=== PATIENT | male | born 1950 | race Caucasian/White ===

== ENCOUNTER 2023-05-22 14:42 | Outpatient (OUT) | payer MEDICARE, OTHER, SELFPAY ==
--- NOTE | 2023-05-22 15:49 | PM.CN ---
Consult Note: HPI Data of Consult Patient: new to practice Consult date: 05/22/23 Requesting Physician: Miguelangel Mac MD Primary Care Provider: HAIDER HICKMAN Consult Narrative Reason for consult: Right foot pain Narrative: this is a pleasant 72-year-old gentleman who presents for evaluation. He notes a fifteen year history of right 3rd toe pain that is worsened with sitting. He has undergone various surgeries on his right foot, but these have not provided any lasting relief. Undergone multiple studies, including more MRIs, which show multilevel stenosis and facet arthropathy. His EMG is significant for polyneuropathy, likely secondary to diabetes. Various medications, including opioids, I have not helped this problem. He has had his 1st two toes indicated on his right foot, but his pain has worsened. He otherwise denies adverse medication side effects or loss of all or bladder control. cc:: CC: Miguelangel Mac MD Review of Systems ROS Status of ROS 10 or more systems reviewed and unremarkable except as noted in history and below Exam Constitutional Common normals: no apparent distress, oriented x3 and healthy appearing Respiratory Common normals: normal respiratory effort Effort & inspection: able to speak in complete sentences Extremity Common normals: normal to inspection Other: Tenderness to palpation in the right foot. Sensitivity to the right foot to palpation. Neuro Common normals: oriented x3, CN's II-XII intact bilaterally and no focal motor deficits Psych Common normals: mental status grossly normal and cooperative Assessment and Plan Assessment and Plan (1) Complex regional pain syndrome i of right lower limb: (2) Pain, foot, right, chronic: Plan this is a pleasant 72-year-old gentleman who presents for evaluation. He has failed physical and medical modalities, as listed above. He has had this ongoing right foot pain for many years, and I do wonder if he has developed some measure of complex regional pain syndrome, given the persistence of his pain and failure to find any etiology with various imaging and nerve conduction studies. Consequently, it would be prudent to attempt right lumbar sympathetic nerve blocks ?2 for diagnostic and potentially therapeutic purposes. He is in agreement with this plan. Medications were reviewed, and no changes were made at this time. He will follow-up after the procedure is completed.
== END 2023-05-22 14:43 | disposition home or self-care (01) ==
PROVIDERS: PCP Family Medicine; Visit Provider Anesthesiology
DX: G89.29 Other chronic pain (principal); G90.521 Complex regional pain syndrome I of right lower limb
CPT/HCPCS: G0463

== ENCOUNTER 2023-06-05 08:50 | Day surgery (SDC) | payer MEDICARE, OTHER, SELFPAY ==
[2023-06-05 09:13] VITALS: BP 145/77; PULSE 58; RESP 14; TEMP 36.8; O2SAT 97
[2023-06-05 09:14] LABS: Glucometer 111 mg/dL (74-106)
[2023-06-05 10:14] VITALS: RESP 20
[2023-06-05] MEDS: BUPIVACAINE HCL 0.25% PF 25 MG/10 ML VIAL 4 ML INJ (10:22)
[2023-06-05] MEDS: 0.9 % SODIUM CHLORIDE 10 ML 5 ML INJ (10:22)
[2023-06-05] MEDS: IOHEXOL 240 MG/ML - 10 ML VIAL INJ (10:23)
[2023-06-05] MEDS: LIDOCAINE HCL 2% PF 100 MG/5 ML VIAL INJ (10:23)
[2023-06-05] MEDS: TRIAMCINOLONE ACETONIDE 40 MG/ML VIAL INJ (10:23)
[2023-06-05 10:25] VITALS: BP 129/77; BP 143/74; PULSE 53; PULSE 54; O2SAT 97; O2SAT 98
--- NOTE | 2023-06-05 10:26 | W.PM.PROCNOT ---
Date of procedure: 06/05/23 Pre-op diagnosis: Complex regional pain syndrome, right lower extremity Post-op diagnosis: same as pre-op Procedure: Procedure: Right lumbar sympathetic nerve block Medications: Bupivacaine 0.25% 3cc, normal saline 0.9% 5cc, kenalog 80mg The patient was seen and examined in the preoperative holding area.? Informed consent was obtained and placed on the chart.? Patient was brought to the medical procedure unit and placed in the prone position where a timeout was completed verifying the correct patient, procedure site, position, and planned special equipment using sterile aseptic technique.? Under direct fluoroscopic visualization a 25-gauge Quincke tipped spinal needle was advanced to the right anterolateral aspect of the L3 vertebral body where Omnipaque dye was injected to show adequate spread.? There was no evidence of vascular or neurologic uptake.? The above-mentioned injectate was then placed in five 2 mL aliquots preceded by negative aspiration. The needle was removed and the surgery site was covered. The same procedure, with the same steps, was then completed on the opposite side. Patient was taken to the postprocedural recovery area and monitored for an appropriate length of time before found suitable for discharge in the accompaniment of a responsible adult. Anesthesia: Local Surgeon: Miguelangel Mac Pathology: none sent Condition: stable Disposition: no change
== END 2023-06-05 10:33 | disposition home or self-care (01) ==
PROVIDERS: PCP Family Medicine; Visit Provider Anesthesiology
DX: G90.521 Complex regional pain syndrome I of right lower limb (principal); E11.9 Type 2 diabetes mellitus without complications
CPT/HCPCS: 36415; 64520; 77002; 82948; Q9966

== ENCOUNTER 2023-06-19 07:10 | Day surgery (SDC) | payer MEDICARE, OTHER, SELFPAY ==
[2023-06-19 07:30] VITALS: BP 121/72; PULSE 59; RESP 16; TEMP 36.2; O2SAT 98
[2023-06-19 07:44] LABS: Glucometer 165 mg/dL (74-106)
[2023-06-19 08:09] VITALS: BP 133/68; PULSE 60; RESP 18; O2SAT 96
[2023-06-19] MEDS: BUPIVACAINE HCL 0.25% PF 25 MG/10 ML VIAL 5 ML INJ (08:13)
[2023-06-19] MEDS: IOHEXOL 240 MG/ML - 10 ML VIAL INJ (08:13)
[2023-06-19] MEDS: 0.9 % SODIUM CHLORIDE 10 ML 5 ML INJ (08:13)
[2023-06-19] MEDS: TRIAMCINOLONE ACETONIDE 40 MG/ML VIAL INJ (08:14)
[2023-06-19] MEDS: LIDOCAINE HCL 2% PF 100 MG/5 ML VIAL INJ (08:14)
[2023-06-19 08:16] VITALS: BP 127/69; PULSE 56; RESP 18; O2SAT 98
--- NOTE | 2023-06-19 08:18 | W.PM.PROCNOT ---
Date of procedure: 06/19/23 Pre-op diagnosis: CRPS right lower extremity Post-op diagnosis: same as pre-op Procedure: Procedure: Right lumbar sympathetic nerve block Medications: Bupivacaine 0.25% 4cc, normal saline 0.9% 4cc, kenalog 80mg Anesthesia: Local Surgeon: Miguelangel Mac Pathology: none sent Condition: stable Disposition: no change
== END 2023-06-19 08:23 | disposition home or self-care (01) ==
PROVIDERS: PCP Family Medicine; Visit Provider Anesthesiology
DX: G90.521 Complex regional pain syndrome I of right lower limb (principal); Z79.84 Long term (current) use of oral hypoglycemic drugs
CPT/HCPCS: 36415; 64520; 77002; 82948; Q9966

== ENCOUNTER 2023-07-05 10:58 | Outpatient (OUT) | payer MEDICARE, OTHER, SELFPAY ==
--- NOTE | 2023-07-05 11:30 | PM.CN ---
Consult Note: HPI Data of Consult Patient: known to practice within the last 3 years Requesting Physician: Anastasia Donato NP Primary Care Provider: HAIDER HICKMAN Consult Narrative Reason for consult: f/u Narrative: Dong Alcazar a pleasant 72 year old male presents for evaluation of chronic right 3rd toe pain rating 8-9/10 at todays visit. Patient had a right lumbar sympathetic nerve block with 0% pain relief or functional improvement. cc:: CC: Anastasia Donato NP Review of Systems ROS Status of ROS 10 or more systems reviewed and unremarkable except as noted in history and below Musculoskeletal Reports: joint pain (3rd toe) PFSH [facility] Medical History (Updated 07/05/23 @ 11:48 by Anastasia Donato NP) Surgical History Meds Home Medications and Allergies Home Medications Medication Instructions Recorded Confirmed Type acarbose 50 mg tablet 50 mg PO TID 05/24/23 06/19/23 History aspirin 81 mg tablet,delayed 81 mg PO DAILY 05/24/23 06/19/23 History release (Adult Aspirin Regimen) bupropion HCl 150 mg tablet,12 hr 150 mg PO DAILY 05/24/23 06/19/23 History sustained-release losartan 50 mg tablet 75 mg PO DAILY 05/24/23 06/19/23 History metoprolol tartrate 50 mg tablet 50 mg PO BID 05/24/23 06/19/23 History (Lopressor) multivitamin (Daily Multi-Vitamin 1 tab PO DAILY 05/24/23 06/19/23 History tablet) nitroglycerin 0.4 mg sublingual 0.4 mg sublingual Q5M 05/24/23 06/19/23 History tablet pioglitazone 30 mg tablet 60 mg PO DAILY 05/24/23 06/19/23 History simvastatin 40 mg tablet 40 mg PO DAILY 05/24/23 06/19/23 History sitagliptin phosphate 50 mg tablet 50 mg PO DAILY 05/24/23 06/19/23 History (Januvia) sodium bicarbonate 650 mg tablet 650 mg PO TID PRN stomach upset 05/24/23 06/19/23 History tizanidine 4 mg tablet 4 mg PO DAILY PRN muscle spasticity 05/24/23 06/19/23 History venlafaxine 37.5 mg 37.5 mg PO BID 05/24/23 06/19/23 History capsule,extended release 24 hr Allergies Allergy/AdvReac Type Severity Reaction Status Date / Time cefuroxime Allergy Verified 06/19/23 07:26 celecoxib [From Celebrex] Allergy Verified 06/19/23 07:26 diflunisal [From Dolobid] Allergy Verified 06/19/23 07:26 dulaglutide [From Trulicity] Allergy Verified 06/19/23 07:26 liraglutide [From Victoza] Allergy Verified 06/19/23 07:26 metformin Allergy Verified 06/19/23 07:26 naproxen [From Naprosyn] Allergy Verified 06/19/23 07:26 NSAIDS (Non-Steroidal Allergy Verified 06/19/23 07:26 Anti-Inflamma rofecoxib [From Vioxx] Allergy Verified 06/19/23 07:26 sulindac [From Clinoril] Allergy Verified 06/19/23 07:26 axetil Allergy Uncoded 06/19/23 07:26 Exam Constitutional Documenting provider has reviewed patient's vital signs: yes Common normals: no apparent distress, oriented x3, healthy appearing, alert and well nourished General appearance: cooperative HENVA Common normals: normocephalic, hearing grossly normal bilaterally and moist oral mucous membranes Head and scalp: normocephalic Eye Common normals: PERRL Pupil: PERRL Neck & C-Spine Common normals: full ROM General: normal visual inspection Chest Common normals: inspection of chest normal Respiratory Common normals: normal respiratory effort, no retractions and no use of accessory muscles Extremity Other: 3rd toe sharp pain limited ROM Neuro Common normals: oriented x3, CN's II-XII intact bilaterally, moves all extremities, no focal motor deficits, no sensory deficits noted and deep tendon reflexes 2+ bilaterally Sensorium/orientation: alert Motor exam: strength 5/5 throughout and no movement abnormalities noted Psych Common normals: mental status grossly normal, thought process normal, cooperative, affect normal, speech normal and activity/motor behavior normal Speech: normal speech Thought process: normal thought process Results Additional Findings Additional findings: I have checked an [place] report on this patient today and there are no aberrancies noted in the prescribing history.?? A drug screen was completed and reviewed within the last year, and if there has not been a drug screen completed we ordered one today to monitor higher risk, state monitored pain medication use. As part of providing excellent, safe, comprehensive care, the following was completed at our patient's visit: 1. A medication reconciliation and review to ensure accurate knowledge of current/active medications, including asking our patients to inform us about any [id number] medications or herbal remedies/nutritional supplements/alternative remedies. 2. A review to specifically ensure our patients have had annual screening for: elevated body mass index (BMI), tobacco use, screening for depression, and screening for unhealthy alcohol use. When screening is concerning, patients are provided with education and the specific recommendation to discuss the concerning health issue and treatment options with their primary care provider. Assessment and Plan Assessment and Plan (1) Toe pain: (2) Complex regional pain syndrome i of right lower limb: Plan start gabapentin 100mg daily HS for one week, 200mg HS second week, 300mg HS third week. Start gabapentin 300mg capsules BID after that start mobic 7.5mg BID f/u 1 month to discuss titration and further increase if needed
== END 2023-07-05 10:59 | disposition home or self-care (01) ==
LOC: PM 10:58
PROVIDERS: PCP Family Medicine; Visit Provider Nurse Practitioner
DX: M79.674 Pain in right toe(s) (principal); G90.521 Complex regional pain syndrome I of right lower limb
CPT/HCPCS: G0463

== ENCOUNTER 2023-07-11 08:55 | Outpatient (OUT) | payer MEDICARE, OTHER, SELFPAY ==
--- NOTE | 2023-07-11 08:57 | VEIN_ITS ---
Patient: LUISITO WHITMORE Exam Date: 07/11/2023 : 1950 Gender:M Ordering : DR KYLER ROJO M.D. Admission #: [id number] Family : Order #: [id number] CLICK HERE TO VIEW EXAM RADIOLOGY REPORT PROCEDURE: VC EXT VENOUS REFLUX CHRISTINE LMTD COMPARISON: None. INDICATIONS: I83.813 Painful varicose veins of bilat lower extremities TECHNIQUE: Duplex imaging of the lower extremity to assess the deep and superficial venous system for the presence of deep or superficial venous incompetence and to document the location and severity of disease. The study includes evaluation of the great saphenous vein (GSV), anterior accessory saphenous vein (AASV) and small saphenous vein (SSV). Patient scanned in reverse Trendelenburg and standing. FINDINGS: RIGHT LOWER EXTREMITY: Saphenofemoral Junction Reflux: Yes 6.5mm 1.4 sec GSV: Diam (mm) Reflux/ Time (sec) Proximal Thigh 4.3 Yes 0.6 Mid Thigh 3.9 No Distal Thigh 2.4 No Prox Calf 2.1 No Mid Calf 1.7 No Saphenopopliteal Junction Reflux: 3.3mm No SSV: Proximal Calf 1.7 No Mid Calf 1.4 Yes 1.1 AASV: Proximal Thigh 2.1 No Thrombi: No acute or chronic thrombus visualized Compressibility: Normal Flow: Normal Preforator: Dist/med calf 2.6mm with 0s reflux. Mid/med calf 3.4mm with 0s reflux. Tech Note: Incompetent SFJ. Patent varicose vein mid/med calf 3.0mm with 0.7s reflux. Patent varicose vein medial knee 2.5mm with 0s reflux. Patent varicose vein mid/med thigh 1.5mm with 0s reflux. LEFT LOWER EXTREMITY: Saphenofemoral Junction Reflux: Yes 8.3 mm 1.3 sec GSV: Diam (mm) Reflux/Time (sec) Proximal Thigh 6.7 Yes 1.0 Mid Thigh 3.2 No Distal Thigh 3.0 No Prox Calf 2.7 No Mid Calf 1.2 No Saphenopopliteal Junction Relux: 3.9 mm No SSV: Proximal Calf 1.7 No Mid Calf 1.8 No AASV: Not present Thrombi: No acute or chronic thrombus visualized Compressibility: Normal Flow: Normal Ultrasonic Cleaner: Dist/med calf 2.2mm with 0s reflux. Tech Note: Incompetent SFJ. Patent varicose vein 1.9mm with 0s reflux. CONCLUSION: 1. Mild venous insufficiency proximal right great saphenous vein, mid right small saphenous vein and proximal left small saphenous vein 2. Borderline single varicose vein in the right leg. Dictated by: Kyler Rojo MD on 07/11/2023 at 10:12 Approved by: Kyler Rojo MD on 07/11/2023 at 10:20
--- NOTE | 2023-07-11 08:57 | VEIN_ITS ---
Patient: LUISITO WHITMORE Exam Date: 07/11/2023 : 1950 Gender:M Ordering : DR KYLER ROJO M.D. Admission #: [id number] Family : Order #: [id number] CLICK HERE TO VIEW EXAM RADIOLOGY REPORT PROCEDURE: [facility] - OFFICE VISIT INITIAL COMPARISON: None. PROGRESS NOTES: 72-year-old male who presents with a 1 year history of lower extremity pain and swelling with multiple episodes of cellulitis requiring antibiotics. The patient's symptoms are asymmetric located only on the right. The patient rates the pain as a 6 on a scale of 1-10. The patient describes scaly peeling skin, skin weeping and multiple ulcerations over the course of the year. The patient is not currently on antibiotics. The patient was referred by his primary care physician. The patient also complains of right foot pain with Charcot joint causing him to be relatively immobile in unable to walk. The patient's pain is significantly increased while sitting or standing and is relieved by walking. The patient denies any signs and symptoms to suggest arterial ischemia. The patient has does not drink alcohol and has never smoked. No illicit drug or prescription miss use. Patient has a past medical history significant for diabetes, arthritis, heart disease, vascular disease, Charcot of the right foot with chronic toe pain and toe amputation. Peripheral neuropathy. BPH. Kidney disease, hiatal hernia, kidney stones, psoriasis. No history of deep venous thrombus or pulmonary embolus. See separate history and physical for medication list. No prior treatment for varicose or spider veins. The patient has worn compression stockings for approximately 6 months. Nursing notes were reviewed. After history and physical exam I discussed at length the pathophysiology of his asymmetric right lower extremity pain swelling, cellulitis, active ulcerations and foot pain. There is no observed venous insufficiency etiology for his symptoms which are likely multifactorial and related to fluid overload from heart disease and hypertension and or combination with lymphatic system dysfunction. No venous treatments were recommended at this time. Ultrasound venous reflux study performed day was discussed at length with the patient. The report demonstrates minimal bilateral proximal great saphenous vein venous insufficiency. Minimal right small saphenous vein venous insufficiency. I discussed with the patient that he likely had mild cellulitis and I recommended antibiotics which I did prescribed. I also was concerned about a central venous obstruction resulting in asymmetric right leg swelling. PHYSICAL EXAM: The right leg demonstrates moderate asymmetric soft tissue swelling primarily below the knee. Extensive moderate erythema and warmth of the lower leg extending from just below the knee to the level of the ankle. Multiple subcentimeter eschars are identified primarily along the anterior and lateral mid to lower right lower leg. The left leg demonstrates minimal scattered reticular and spider veins. No active ulceration. No subcutaneous edema. Both thighs, legs and feet were symmetrically warm to the touch. Good posterior tibial and dorsalis pedis pulses were present bilaterally. VEIN/VC Facility EST Comprehensive IMPRESSION: 1. Minimal bilateral great and right small saphenous vein venous insufficiency 2. No significant lower extremity varicose veins 3. Moderate asymmetric right lower extremity subcutaneous edema with ulcerations, consider lymphadema 4. No definite flow significant arterial disease 5. CEAP: C0, En, An, Pn PLAN: 1. CT exam of the abdomen and pelvis with IV and oral contrast to evaluate for central venous obstruction 2. Keflex 500 milligram b.i.d. For 14 days 3. Long-term use of bilateral knee or thigh-high 30-40 mm compression stockings 4. Elevated legs and increased physical activity for symptomatic relief Nurse notes, history and physical were reviewed and confirmed, see attached forms. The nurse was present throughout the physical exam and consultation Dictated by: Kyler Rojo MD on 07/11/2023 at 13:42 Approved by: Kyler Rojo MD on 07/11/2023 at 13:51
== END 2023-07-11 08:56 | disposition home or self-care (01) ==
LOC: VC 08:56
PROVIDERS: PCP Family Medicine; Visit Provider Radiology Diagnostic Radiology
DX: I89.0 Lymphedema, not elsewhere classified (principal); Z87.2 Personal history of diseases of the skin and subcutaneous tissue; I83.813 Varicose veins of bilateral lower extremities with pain
CPT/HCPCS: 93970; G0463

== ENCOUNTER 2023-08-03 10:42 | Outpatient (OUT) | payer MEDICARE, OTHER, SELFPAY ==
--- NOTE | 2023-08-03 10:52 | PM.CN ---
Consult Note: HPI Data of Consult Patient: known to practice within the last 3 years Requesting Physician: Anastasia Donato NP Primary Care Provider: HAIDER HICKMAN Consult Narrative Reason for consult: f/u Narrative: Dong Alcazar a pleasant 72 year old male presents for evaluation of chronic right 3rd toe pain rating 1-2/10 at todays visit. Patient has restarted gabapentin and is taking 600mg daily without benefit, no side effects. Patient has a complex history of uncontrolled diabetes and has had this pain for 15+ years that is unresponsive to medication management and injection therapy. cc:: CC: Anastasia Donato NP Review of Systems ROS Status of ROS 10 or more systems reviewed and unremarkable except as noted in history and below Musculoskeletal Reports: joint pain (3rd toe) PFSH PFSH Medical History Amputation of toe ?S98.139A - Complete traumatic amputation of one unspecified lesser toe, initial encounter (ICD-10) Diabetes ?E11.9 - Type 2 diabetes mellitus without complications (ICD-10) Enlarged prostate ?N40.0 - Benign prostatic hyperplasia without lower urinary tract symptoms (ICD-10) H/O nephrolithotomy with removal of calculi ?Z98.890 - Other specified postprocedural states (ICD-10) ?Z87.442 - Personal history of urinary calculi (ICD-10) H/O renal calculi ?Z87.442 - Personal history of urinary calculi (ICD-10) Hypertension ?I10 - Essential (primary) hypertension (ICD-10) Low back pain ?M54.50 - Low back pain, unspecified (ICD-10) Neck pain ?M54.2 - Cervicalgia (ICD-10) Obesity ?E66.9 - Obesity, unspecified (ICD-10) Obstructive sleep apnea on CPAP ?G47.33 - Obstructive sleep apnea (adult) (pediatric) (ICD-10) Osteoarthritis ?M19.90 - Unspecified osteoarthritis, unspecified site (ICD-10) Surgical History H/O heart artery stent ?Z95.5 - Presence of coronary angioplasty implant and graft (ICD-10) Meds Home Medications and Allergies Home Medications Medication Instructions Recorded Confirmed Type acarbose 50 mg tablet 50 mg PO TID 05/24/23 06/19/23 History aspirin 81 mg tablet,delayed 81 mg PO DAILY 05/24/23 06/19/23 History release (Adult Aspirin Regimen) bupropion HCl 150 mg tablet,12 hr 150 mg PO DAILY 05/24/23 06/19/23 History sustained-release losartan 50 mg tablet 75 mg PO DAILY 05/24/23 06/19/23 History metoprolol tartrate 50 mg tablet 50 mg PO BID 05/24/23 06/19/23 History (Lopressor) multivitamin (Daily Multi-Vitamin 1 tab PO DAILY 05/24/23 06/19/23 History tablet) nitroglycerin 0.4 mg sublingual 0.4 mg sublingual Q5M 05/24/23 06/19/23 History tablet pioglitazone 30 mg tablet 60 mg PO DAILY 05/24/23 06/19/23 History simvastatin 40 mg tablet 40 mg PO DAILY 05/24/23 06/19/23 History sitagliptin phosphate 50 mg tablet 50 mg PO DAILY 05/24/23 06/19/23 History (Januvia) sodium bicarbonate 650 mg tablet 650 mg PO TID PRN stomach upset 05/24/23 06/19/23 History tizanidine 4 mg tablet 4 mg PO DAILY PRN muscle spasticity 05/24/23 06/19/23 History venlafaxine 37.5 mg 37.5 mg PO BID 05/24/23 06/19/23 History capsule,extended release 24 hr Allergies Allergy/AdvReac Type Severity Reaction Status Date / Time cefuroxime Allergy Verified 06/19/23 07:26 celecoxib [From Celebrex] Allergy Verified 06/19/23 07:26 diflunisal [From Dolobid] Allergy Verified 06/19/23 07:26 dulaglutide [From Trulicity] Allergy Verified 06/19/23 07:26 liraglutide [From Victoza] Allergy Verified 06/19/23 07:26 metformin Allergy Verified 06/19/23 07:26 naproxen [From Naprosyn] Allergy Verified 06/19/23 07:26 NSAIDS (Non-Steroidal Allergy Verified 06/19/23 07:26 Anti-Inflamma rofecoxib [From Vioxx] Allergy Verified 06/19/23 07:26 sulindac [From Clinoril] Allergy Verified 06/19/23 07:26 axetil Allergy Uncoded 06/19/23 07:26 Exam Constitutional Documenting provider has reviewed patient's vital signs: yes Common normals: no apparent distress, oriented x3, healthy appearing, alert and well nourished General appearance: cooperative HENMT Common normals: normocephalic, hearing grossly normal bilaterally and moist oral mucous membranes Head and scalp: normocephalic Eye Common normals: PERRL Pupil: PERRL Neck & C-Spine Common normals: full ROM General: normal visual inspection Chest Common normals: inspection of chest normal Respiratory Common normals: normal respiratory effort, no retractions and no use of accessory muscles Extremity Other: 3rd toe sharp pain limited ROM Neuro Common normals: oriented x3, CN's II-XII intact bilaterally, moves all extremities, no focal motor deficits, no sensory deficits noted and deep tendon reflexes 2+ bilaterally Sensorium/orientation: alert Motor exam: strength 5/5 throughout and no movement abnormalities noted Psych Common normals: mental status grossly normal, thought process normal, cooperative, affect normal, speech normal and activity/motor behavior normal Speech: normal speech Thought process: normal thought process Assessment and Plan Assessment and Plan (1) Toe pain: (2) Pain, foot, right, chronic: (3) Complex regional pain syndrome i of right lower limb: Plan tolerating gabapentin well without side effects but not seeing a benefit at current 600mg daily dose increase to 900mg daily for two weeks then 1200mg daily f/u 1 month, consider switching to zonegran
== END 2023-08-03 10:43 | disposition home or self-care (01) ==
LOC: PM 10:43
PROVIDERS: PCP Family Medicine; Visit Provider Nurse Practitioner
DX: M79.671 Pain in right foot (principal); G89.29 Other chronic pain; G90.521 Complex regional pain syndrome I of right lower limb; M79.676 Pain in unspecified toe(s)
CPT/HCPCS: G0463

== ENCOUNTER 2023-08-30 10:11 | Outpatient (OUT) | payer MEDICARE, OTHER, SELFPAY ==
--- NOTE | 2023-08-30 10:37 | PM.CN ---
Consult Note: HPI Data of Consult Patient: known to practice within the last 3 years Requesting Physician: Anastasia Donato NP Primary Care Provider: HAIDER HICKMAN Consult Narrative Reason for consult: f/u Narrative: Dong Alcazar a pleasant 72 year old male presents for evaluation of chronic right 3rd toe pain rating 4/10 at todays visit. Patient has not found benefit to gabapentin 1200mg daily. Patient has a complex history of uncontrolled diabetes and has had this pain for 15+ years that is unresponsive to medication management and injection therapy. . cc:: CC: Anastasia Donato NP Review of Systems ROS Status of ROS 10 or more systems reviewed and unremarkable except as noted in history and below [facility] Medical History Amputation of toe ?S98.139A - Complete traumatic amputation of one unspecified lesser toe, initial encounter (ICD-10) Diabetes ?E11.9 - Type 2 diabetes mellitus without complications (ICD-10) Enlarged prostate ?N40.0 - Benign prostatic hyperplasia without lower urinary tract symptoms (ICD-10) H/O nephrolithotomy with removal of calculi ?Z98.890 - Other specified postprocedural states (ICD-10) ?Z87.442 - Personal history of urinary calculi (ICD-10) H/O renal calculi ?Z87.442 - Personal history of urinary calculi (ICD-10) Hypertension ?I10 - Essential (primary) hypertension (ICD-10) Low back pain ?M54.50 - Low back pain, unspecified (ICD-10) Neck pain ?M54.2 - Cervicalgia (ICD-10) Obesity ?E66.9 - Obesity, unspecified (ICD-10) Obstructive sleep apnea on CPAP ?G47.33 - Obstructive sleep apnea (adult) (pediatric) (ICD-10) Osteoarthritis ?M19.90 - Unspecified osteoarthritis, unspecified site (ICD-10) Surgical History H/O heart artery stent ?Z95.5 - Presence of coronary angioplasty implant and graft (ICD-10) Meds Home Medications and Allergies Home Medications Medication Instructions Recorded Confirmed Type acarbose 50 mg tablet 50 mg PO TID 05/24/23 06/19/23 History aspirin 81 mg tablet,delayed 81 mg PO DAILY 05/24/23 06/19/23 History release (Adult Aspirin Regimen) bupropion HCl 150 mg tablet,12 hr 150 mg PO DAILY 05/24/23 06/19/23 History sustained-release losartan 50 mg tablet 75 mg PO DAILY 05/24/23 06/19/23 History metoprolol tartrate 50 mg tablet 50 mg PO BID 05/24/23 06/19/23 History (Lopressor) multivitamin (Daily Multi-Vitamin 1 tab PO DAILY 05/24/23 06/19/23 History tablet) nitroglycerin 0.4 mg sublingual 0.4 mg sublingual Q5M 05/24/23 06/19/23 History tablet pioglitazone 30 mg tablet 60 mg PO DAILY 05/24/23 06/19/23 History simvastatin 40 mg tablet 40 mg PO DAILY 05/24/23 06/19/23 History sitagliptin phosphate 50 mg tablet 50 mg PO DAILY 05/24/23 06/19/23 History (Januvia) sodium bicarbonate 650 mg tablet 650 mg PO TID PRN stomach upset 05/24/23 06/19/23 History tizanidine 4 mg tablet 4 mg PO DAILY PRN muscle spasticity 05/24/23 06/19/23 History venlafaxine 37.5 mg 37.5 mg PO BID 05/24/23 06/19/23 History capsule,extended release 24 hr gabapentin 600 mg tablet 1,200 mg PO DAILY #60 tabs 08/17/23 Rx Allergies Allergy/AdvReac Type Severity Reaction Status Date / Time cefuroxime Allergy Verified 06/19/23 07:26 celecoxib [From Celebrex] Allergy Verified 06/19/23 07:26 diflunisal [From Dolobid] Allergy Verified 06/19/23 07:26 dulaglutide [From Trulicity] Allergy Verified 06/19/23 07:26 liraglutide [From Victoza] Allergy Verified 06/19/23 07:26 metformin Allergy Verified 06/19/23 07:26 naproxen [From Naprosyn] Allergy Verified 06/19/23 07:26 NSAIDS (Non-Steroidal Allergy Verified 06/19/23 07:26 Anti-Inflamma rofecoxib [From Vioxx] Allergy Verified 06/19/23 07:26 sulindac [From Clinoril] Allergy Verified 06/19/23 07:26 axetil Allergy Uncoded 06/19/23 07:26 Exam Constitutional Documenting provider has reviewed patient's vital signs: yes Common normals: no apparent distress, oriented x3, healthy appearing, alert and well nourished General appearance: cooperative HENAL Common normals: normocephalic, hearing grossly normal bilaterally and moist oral mucous membranes Head and scalp: normocephalic Eye Common normals: PERRL Pupil: PERRL Neck & C-Spine Common normals: full ROM General: normal visual inspection Chest Common normals: inspection of chest normal Respiratory Common normals: normal respiratory effort, no retractions and no use of accessory muscles Extremity Other: 3rd toe sharp pain limited ROM Neuro Common normals: oriented x3, CN's II-XII intact bilaterally, moves all extremities, no focal motor deficits, no sensory deficits noted and deep tendon reflexes 2+ bilaterally Sensorium/orientation: alert Motor exam: strength 5/5 throughout and no movement abnormalities noted Psych Common normals: mental status grossly normal, thought process normal, cooperative, affect normal, speech normal and activity/motor behavior normal Speech: normal speech Thought process: normal thought process Assessment and Plan Assessment and Plan (1) Complex regional pain syndrome i of right lower limb: (2) Pain, foot, right, chronic: (3) Toe pain: Plan right sciatic nerve block continue current medications f/u with Dr Mac
== END 2023-08-30 10:12 | disposition home or self-care (01) ==
LOC: PM 10:12
PROVIDERS: PCP Family Medicine; Visit Provider Nurse Practitioner
DX: G90.521 Complex regional pain syndrome I of right lower limb (principal); M79.671 Pain in right foot; M79.674 Pain in right toe(s)
CPT/HCPCS: G0463

== ENCOUNTER 2023-09-25 08:52 | Day surgery (SDC) | payer MEDICARE, OTHER, SELFPAY ==
[2023-09-25 09:23] VITALS: BP 164/80; PULSE 59; RESP 14; TEMP 36.3; O2SAT 98
[2023-09-25 09:30] LABS: Glucometer 131 mg/dL (74-106)
[2023-09-25 10:02] VITALS: BP 147/79; PULSE 60; RESP 18; O2SAT 98
[2023-09-25 10:07] VITALS: BP 154/85; PULSE 57; RESP 18; O2SAT 98
--- NOTE | 2023-09-25 10:08 | W.PM.PROCNOT ---
Date of procedure: 09/25/23 Pre-op diagnosis: Sciatica, complex regional pain syndrome type 1, right lower extremity Post-op diagnosis: same as pre-op Procedure: Procedure: Right distal sciatic nerve block under ultrasound guidance Medications: Bupivacaine 0.25% 2cc, lidocaine 2% 1cc, kenalog 80mg After informed consent was obtained and placed on the chart, the patient was brought to the medical procedures unit and placed in the prone position.? A timeout was completed verifying correct patient, procedure, site, positioning, and planned special equipment.? The area overlying the popliteal fossa was prepped and draped using aseptic technique. Ultrasound guidance was used to find the distal sciatic nerve, just before it branches into the tibial and common peroneal nerves. A 22-gauge, 4-inch Stimuplex needle with active tip was advanced through a skin wheal raised with 2% lidocaine in the area overlying the site of insertion. The needle was advanced until it abutted the right sciatic nerve. A test injection was given with 1cc of the above solution, which showed appropriate spread around the sciatic nerve. ? The above-mentioned injectate was placed in three 1 mL aliquots preceded by negative aspiration without sequelae.? The needle was removed.? The needle insertion site was covered.? The patient was taken to the postprocedural recovery area and monitored for the appropriate length of time, and when the patient was found suitable for discharge in the accompaniment of a responsible adult. Anesthesia: Local Surgeon: Miguelangel Mac Pathology: none sent Condition: stable Disposition: no change
[2023-09-25] MEDS: 0.9 % SODIUM CHLORIDE 10 ML SYRINGE - SALINE FLUSH 2 ML INJ (10:10)
[2023-09-25] MEDS: BUPIVACAINE HCL 0.25% PF 25 MG/10 ML VIAL 2 ML INJ (10:11)
[2023-09-25] MEDS: LIDOCAINE HCL 2% PF 100 MG/5 ML VIAL INJ (10:11)
[2023-09-25] MEDS: TRIAMCINOLONE ACETONIDE 40 MG/ML VIAL INJ (10:11)
== END 2023-09-25 10:15 | disposition home or self-care (01) ==
PROVIDERS: PCP Family Medicine; Visit Provider Anesthesiology
DX: M54.30 Sciatica, unspecified side (principal); G90.521 Complex regional pain syndrome I of right lower limb; Z79.84 Long term (current) use of oral hypoglycemic drugs
CPT/HCPCS: 36415; 64445; 76942; 77002; 82948

== ENCOUNTER 2023-10-16 14:10 | Outpatient (OUT) | payer MEDICARE, OTHER, SELFPAY ==
--- NOTE | 2023-10-16 15:34 | P.CN_ITS ---
Consult Note: HPI Data of Consult Patient: known to practice within the last 3 years Consult date: 10/16/23 Requesting Physician: Miguelangel Mac MD Primary Care Provider: HAIDER HICKMAN Consult Narrative Reason for consult: Right foot pain Narrative: 73yom who presents for assessment. COntinues to have significant pain into right foot. EMG shows severe axonal loss, polyneuropathy. Has not had relief with gabapentin or various injections and blocks. States that his pain is making him more and more despondent. Denies adverse medication side effects. cc:: CC: Miguelangel Mac MD Review of Systems ROS Status of ROS 10 or more systems reviewed and unremark able except as noted in history and below [facility] Medical History H/O nephrolithotomy with removal of calculi ?Z98.890 - Other specified postprocedural states (ICD-10) ?Z87.442 - Personal history of urinary calculi (ICD-10) Osteoarthritis ?M19.90 - Unspecified osteoarthritis, unspecified site (ICD-10) Amputation of toe ?S98.139A - Complete traumatic amputation of one unspecified lesser toe, initial encounter (ICD-10) H/O renal calculi ?Z87.442 - Personal history of urinary calculi (ICD-10) Obstructive sleep apnea on CPAP ?G47.33 - Obstructive sleep apnea (adult) (pediatric) (ICD-10) Neck pain ?M54.2 - Cervicalgia (ICD-10) Low back pain ?M54.50 - Low back pain, unspecified (ICD-10) Obesity ?E66.9 - Obesity, unspecified (ICD-10) Diabetes ?E11.9 - Type 2 diabetes mellitus without complications (ICD-10) Enlarged prostate ?N40.0 - Benign prostatic hyperplasia without lower urinary tract symptoms (ICD-10) Hypertension ?I10 - Essential (primary) hypertension (ICD-10) Surgical History H/O heart artery stent ?Z95.5 - Presence of coronary angioplasty implant and graft (ICD-10) Meds Home Medications and Allergies Home Medications Medication Instructions Recorded Confirmed Type acarbose 50 mg tablet 50 mg PO TID 05/24/23 09/25/23 History aspirin 81 mg tablet,delayed 81 mg PO DAILY 05/24/23 09/25/23 History release (Adult Aspirin Regimen) bupropion HCl 150 mg tablet,12 hr 150 mg PO DAILY 05/24/23 09/25/23 History sustained-release losartan 50 mg tablet 75 mg PO DAILY 05/24/23 09/25/23 History metoprolol tartrate 50 mg tablet 50 mg PO BID 05/24/23 09/25/23 History (Lopressor) nitroglycerin 0.4 mg sublingual 0.4 mg sublingual Q5M 05/24/23 09/25/23 History tablet pioglitazone 30 mg tablet 60 mg PO DAILY 05/24/23 09/25/23 History simvastatin 40 mg tablet 40 mg PO DAILY 05/24/23 09/25/23 History sitagliptin phosphate 50 mg tablet 50 mg PO DAILY 05/24/23 09/25/23 History (Januvia) sodium bicarbonate 650 mg tablet 650 mg PO TID PRN stomach upset 05/24/23 09/25/23 History tizanidine 4 mg tablet 4 mg PO DAILY PRN muscle spasticity 05/24/23 09/25/23 History venlafaxine 37.5 mg 37.5 mg PO BID 05/24/23 09/25/23 History capsule,extended release 24 hr Allergies Allergy/AdvReac Type Severity Reaction Status Date / Time cefuroxime Allergy Verified 06/19/23 07:26 celecoxib [From Celebrex] Allergy Verified 06/19/23 07:26 diflunisal [From Dolobid] Allergy Verified 06/19/23 07:26 dulaglutide [From Trulicity] Allergy Verified 06/19/23 07:26 liraglutide [From Victoza] Allergy Verified 06/19/23 07:26 metformin Allergy Verified 06/19/23 07:26 naproxen [From Naprosyn] Allergy Verified 06/19/23 07:26 NSAIDS (Non-Steroidal Allergy Verified 06/19/23 07:26 Anti-Inflamma rofecoxib [From Vioxx] Allergy Verified 06/19/23 07:26 sulindac [From Clinoril] Allergy Verified 06/19/23 07:26 axetil Allergy Uncoded 06/19/23 07:26 Exam Narrative Exam Narrative: Psych-alert and oriented x 3. Attentive and appropriate, constitutionally normal, displays normal mood and affect per situation.? There are no obvious deficits in memory, reasoning, or intellect.? Skin-no obvious rashes, bruising, erythema noted to the patient's area of pain. Extremities- extremities are warm with minimal edema and palpable pulses. Lumbar-no significant tenderness to palpation noted in the lumbar spine and paraspinal musculature.? Pain is elicited with extension, and lateral rotation of the lumbar spine. Range of motion is slightly diminished with these motions due to pain. Coordination remains intact.? Gait remains non-antalgic. Assessment and Plan Assessment and Plan (1) Pain, foot, right, chronic: (2) Chronic painful diabetic neuropathy: (3) Lumbar spondylosis: Plan 73yom who presents for assessment. Persistent significant right foot pain. Suspect that this is due to painful diabetic neuropathy, given longstanding diabetic history, severe findings on EMG, previous amputation of several toes on right foot. Given his failure to respond to any conservative measures or medications, discussed that he may be appropriate candidate for spinal cord stimulator trial. He is in agreement and would like to think on this. Meds reviewed, no changes. Follow up as needed.
== END 2023-10-16 14:11 | disposition home or self-care (01) ==
PROVIDERS: PCP Family Medicine; Visit Provider Anesthesiology
DX: M79.671 Pain in right foot (principal); E11.40 Type 2 diabetes mellitus with diabetic neuropathy, unspecified; M47.816 Spondylosis without myelopathy or radiculopathy, lumbar region
CPT/HCPCS: G0463

== ENCOUNTER 2023-10-27 09:28 | Outpatient (OUT) | payer MEDICARE, OTHER, SELFPAY ==
--- OUTSIDE RECORDS SUMMARY | 2023-10-27 09:30 | XMS_ITS | CCD ---
Author Name Unknown Address [address] [place] [address] Organization [facility] Care Team Providers Care Physician Office Secretary Name Role Phone Morgan Kunz Unavailable Aldo Middleton Unavailable Carito West Unavailable Terry Kelley Unavailable DR TERRY KELLEY Consulting Unavailable JOHNSON ., DR SCARLET [place] [facility] Unavailable DR TERRY KELLEY Attending Unavailable DR TERRY KELLEY Admitting Unavailable SU, DR MORGAN Miranda Consulting Unavailable JOHNSON ., DR SCARLET [place] [facility] Unavailable ANDREA AGUILAR Attending Unavailable ANDREA AGUILAR Admitting Unavailable ANDREA AGUILAR Consulting Unavailable ANDREW, DR BRITTNY Hemphill Consulting Unavailable JOHNSON ., DR SCARLET [place] [facility] Unavailable MARY JOHNSON Attending Unavailable MARY JOHNSON Admitting Unavailable MARY JOHNSON Consulting Unavailable MARY JOHNSON Consulting Unavailable JOHNSON ., DR SCARLET [place] [facility] Unavailable MARY JOHNSON Attending Unavailable MARY JOHNSON Admitting Unavailable JOHNSON ., DR SCARLET [place] Consulting Unavailable JOHNSON ., DR SCARLET [place] [facility] Unavailable JOHNSON ., DR SCARLET [place] Attending Unavailable JOHNSON ., DR SCARLET [place] Admitting Unavailable JOHNSON ., DR SCARLET [place] Consulting Unavailable JOHNSON ., DR SCARLET [place] [facility] Unavailable JOHNSON ., DR SCARLET [place] Attending Unavailable JOHNSON ., DR SCARLET [place] Admitting Unavailable LATRICIA, DR ARACELI Treadwell Consulting Unavailable JOHNSON ., DR SCARLET [place] [facility] Unavailable LATRICIA, DR ARACELI Treadwell Attending Unavailable DR ARACELI BERMUDEZ Admitting Unavailable DR MORGAN ROJO V Consulting Unavailable DR BRITTNY MORALES Consulting Unavailable JOHNSON ., DR SCARLET [place] [facility] Unavailable ROLANDO SORIA Attending Unavailable ROLANDO SORIA Admitting Unavailable ROLANDO SORIA Consulting Unavailable JOHNSON ., DR SCARLET [place] Consulting Unavailable JOHNSON ., DR SCARLET [place] [facility] Unavailable JOHNSON ., DR SCARLET [place] Attending Unavailable JOHNSON ., DR SCARLET [place] Admitting Unavailable JOHNSON ., DR SCARLET [place] [facility] Unavailable JOHNSON ., DR SCARLET [place] Attending Unavailable JOHNSON ., DR SCARLET [place] Admitting Unavailable PAY ., DR HUSSEIN Consulting Unavailable PAY ., DR HUSSEIN Attending Unavailable PAY ., DR HUSSEIN Admitting Unavailable JOHNSON ., DR SCARLET [place] [facility] Unavailable JOHNSON ., DR SCARLET [place] [facility] Unavailable JOHNSON ., DR SCARLET [place] Attending Unavailable JOHNSON ., DR SCARLET [place] Admitting Unavailable ELAINE FISHER Attending Unavailable MARY JOHNSON Attending Unavailable MARY JOHNSON Attending Unavailable Eligio Soni Unavailable MD Daniel Everett Attending Provider MD Scarlet Johnson Primary Care Provider MD Eligio Soni Attending Provider [phone] Eligio Soni Admitting UnavailEligio Patel Attending UnavailScarlet Valerio Primary Care Unavailable Terry Kelley Attending Unavailable Scarlet Johnson Primary Care Unavailable Terry Kelley Admitting Unavailable Daniel Everett Admitting Unavailable Daniel Everett Attending Unavailable Scarlet Johnson Primary Care Unavailable MD Everett Miner Attending Unavailable MD Everett Miner Attending Unavailable MD Everett Miner Attending Unavailable MD Everett Miner Attending Unavailable CHARMAINE Barajas Attending Unavailable MD Everett Miner Attending Unavailable MD Everett Miner Admitting Unavailable Kaleb Mallory Attending Unavailable Kaleb Mallory Attending Unavailable MD Everett Miner Referring Unavailable Araceli BERMUDEZ Attending Unavailable CHARMAINE Barajas Attending Unavailable MD Everett Miner Attending Unavailable MD Everett Miner Attending Unavailable Bubba SCHUSTER, Miguelangel Louis Attending Unavailable Bubba SCHUSTER, Miguelangel Louis Attending Unavailable Bubba SCHUSTER, Miguelangel Louis Attending Unavailable Giedraitis , Miguelangel Louis Attending Unavailable Giedraitis , Miguelangel Louis Attending Unavailable Allergies Allergy Classification Reported Allergen(s) Allergy Type Date of Onset Reaction(s) Facility (20 sources) Cefuroxime; Translations: [CEFUROXIME] Drug Allergy 06-09-20 Unknown [facility] Repository (20 sources) celecoxib; Translations: [CELECOXIB] Drug Allergy 06-09-20 Unknown [facility] Repository (20 sources) Diflunisal; Translations: [DIFLUNISAL] Drug Allergy 06-09-20 Unknown [facility] Repository (20 sources) dulaglutide Drug Allergy Unknown, g/i [facility] Other (20 sources) Ibuprofen Drug Allergy Unknown [facility] Other (20 sources) liraglutide; Translations: [LIRAGLUTIDE] Drug Allergy 11-25-19 23 stomach upset [facility] Repository (20 sources) metFORMIN; Translations: [METFORMIN] Drug Allergy 06-09-20 21 stomach upset [facility] Repository (20 sources) Naproxen; Translations: [NAPROXEN] Drug Allergy 06-09-20 Unknown [facility] Repository (20 sources) Sulindac; Translations: [Clinoril] Drug Allergy 07-10-20 15 Unknown [facility] Repository (1 source) Cefuroxime Drug Allergy 07-13-20 16 [facility] Repository (2 sources) celecoxib; Translations: [CeleBREX] Drug Allergy 07-10-20 15 [facility] Repository (2 sources) liraglutide; Translations: [Victoza] Drug Allergy [facility] Repository (1 source) metFORMIN Drug Allergy 06-15-20 17 [facility] Repository (2 sources) Naproxen; Translations: [Naprosyn] Drug Allergy 07-10-20 15 [facility] Repository (2 sources) NSAIDs; Translations: [NSAIDS (NON-STEROIDAL ANTI-INFLAMMATORY DRUG)] Drug allergy (disorder) 07-10-20 15 [facility] Repository (2 sources) Povidone-Iodine; Translations: [Dolobid] Drug Allergy 07-10-20 15 [facility] Repository (1 source) rofecoxib; Translations: [ROFECOXIB] Drug Allergy 06-09-20 21 [facility] Repository (1 source) Sulindac; Translations: [SULINDAC] Drug Allergy 06-09-20 21 [facility] Repository (2 sources) Cephalosporins (Antibiotic); Translations: [cephalosporins] Drug allergy (disorder) 05-29-20 18 [facility] Repository (1 source) Cefuroxime; Translations: [Cefuroxime Axetil] Drug Allergy [facility] Repository (1 source) dulaglutide; Translations: [Trulicity] Drug Allergy [facility] Repository (1 source) Niacin; Translations: [niacin] Drug Allergy [facility] Repository (1 source) NSAIDs; Translations: [NSAIDs] Propensity to adverse reactions (disorder) [facility] Repository (1 source) rofecoxib; Translations: [Vioxx] Drug Allergy [facility] Repository Medications Current Medications Medication Drug Class(es) Dates Sig (Normalized) Sig (Original) acarbose 50 mg oral tablet (20 sources) alpha-Glucosidase Inhibitor Start: 11-07-2022 take 1 tablet by mouth three times daily before mealtime Acarbose 50 MG 1 tab before meals three times/day Orally as directed for 90 day(s) stop acarbose 25mg Oct, Active Start: 05-29-2018 Acarbose Activ e TABLET May 28, 2018 11:00pm take 1 tablet by jatin th three times daily Acarbose 25 mg 1 Tablet Oral tid Active acetaminophen 325 mg / HYDROcodone bitartrate 5 mg oral tablet (1 source) Opioid Agonist Start: 06-07-2018 take 1 tablet by mouth every four to six hours Hydrocodone-Acetaminophen Active 1 TAB PO EVERY 4-6 HOURS June 07, 2018 aspirin 81 mg chewable tablet (20 sources) Platelet Aggregation Inhibitor, Nonsteroidal Anti-inflammatory Drug take 1 tablet by mouth every twenty-fou r hours Aspirin 81 MG 1 Tablet Orally Daily Active 12 hr buPROPion hydrochloride 150 mg extended release oral tablet (20 sources) Aminoketone Start: 05-29-2018 Bupropion Hcl Active May 28, 2018 11:00pm Calcium + D3 600-200 MG-UNIT (20 sources) take 1 tablet by mouth once daily Calcium + D3 600-200 MG-UNIT 1 tablet with a meal Orally Once a day Active canagliflozin 100 mg oral tablet (1 source) Sodium-Glucose Cotransporter 2 Inhibitor Start: 05-29-2018 Canagliflozin (Invokana) 100 mg tablet Active TABLET May 28, 2018 11:00pm ciprofloxacin 500 mg oral tablet (1 source) Quinolone Antimicrobial Start: 06-07-2018 take 1 tablet by mouth every two hours Ciprofloxacin Hcl (Cipro) 500 mg tablet Active 500 MG PO Q12H 10 June 06, 2018 11:00pm administer dose at least 2 hrs before/6 hrs after dairy products, calcium, zinc, and/or iron-containing products Fish Oils (20 sources) take 1 capsule by mouth once daily Fish Oil 1200 MG 1 capsule Orally daily Active gabapentin 600 mg oral tablet (3 sources) Anti-epileptic Agent Gabapentin 600 MG Or al for 30 Days Active 3 ml insulin aspart, human 100 unt/ml pen injector (5 sources) Insulin Analog NovoLOG FlexPen 100 UNIT/ML 1:50 corrective scale ac tid Subcutaneous As Directed Active 3 ml insulin lispro 100 unt/ml pen injector (1 source) Insulin Analog Start: 05-31-2023 HumaLOG KwikPen 100 UNIT/ML 1:50 corrective scale ac tid Subcutaneous as directed for 30 days (expect up to 20 units/day) May, Active losartan potassium 50 mg oral tablet (20 sources) Angiotensin 2 Receptor Nathaly take 1.5 mg by mouth once daily Losartan Potassium 50 MG 1.5 mg Orally Once a day Active take 1 tablet by jatin th every twenty-four hours Losartan Potassium 50 MG 1 tablet Orally Once a day Active Losartan Potassi um Active metoprolol tartrate 50 mg oral tablet (20 sources) beta-Adrenergic Nathaly Start: 05-29-2018 Metopr olol Tartrate Active TABLET May 28, 2018 11:00pm take 1 tablet by jatin th every twenty-four hours Metoprolol Tartrate 100 MG 1 tablet with food Orally Daily Active take 1 tablet by jatin th every twenty-four hours Metoprolol Tartrate 50 MG 1 Tablet Orall y Daily Active Nitro Sublingual 0.4 (20 sources) Nitro Sublingual 0.4 Sublingual As Directed Active Delevan 9-Rri-Xew-Fish Oil (Fish Oil) 1,000 mg (120 mg-180 mg) Capsule (1 source) Start: 05-29-20 18 Delevan 2-Hef-Rjk-Fish Oil (Fish Oil) 1,000 mg (120 mg-180 mg) Capsule Active May 28, 2018 11:00pm oxybutynin chloride 5 mg oral tablet (1 source) Cholinergic Muscarinic Antagonist Start: 06-07-20 take 5 mg by mouth twice daily Oxybutynin Chloride Active 5 MG PO Twice daily 60 June 06, 2018 11:00pm pioglitazone 30 mg oral tablet (20 sources) Peroxisome Proliferator Receptor alpha Agonist, Peroxisome Proliferator Receptor gamma Agonist, Thiazolidinedione take 1 tablet by mouth every twenty-four hours Pioglitazone HCl 30 MG 1 tablet Orally Once a day Active take 2 tablets by mo [facility] every twenty-four hours Pioglitazone HCl 15 MG 2 tablets Orally Once a day for 90 days Active take 1 tablet by jatin every twenty-four hours Pioglitazone HCl 15 MG 1 tablet Orally Once a day for 90 day(s) Active pregabalin 100 mg oral capsule (7 sources) Start: 11-17-2022 Pregabalin 100 MG 1 capsule Orally bid Q 10 DAYS Nov, Active simvastatin 40 mg oral tablet (20 sources) HMG-CoA Reductase Inhibitor take 1 tablet by mouth every twenty-four hours Simvastatin 40 MG 1 tablet in the evening Orally Once a day for 30 day(s) Active SITagliptin 25 mg oral tablet (20 sources) Dipeptidyl Peptidase 4 Inhibitor Start: 05-29-2018 Sitagliptin Phosphate (Januvia) 25 mg Tablet Active TABLET May 28, 2018 11:00pm take 1 tablet by jatin every twenty-four hours Januvia 100 MG 1 tablet Orally Once a day Active take 0.5 tablet by mouth once da frances Januvia 100 MG 1/2 tablet Orally Once a day Active sodium bicarb 650 mg (20 sources) take 2 tablets by mouth three times daily sodium bicarb 650 mg 2 tablets orally tid Active sodium bicarbonate 650 mg oral tablet (1 source) Start: 8 Sodium Bicarbonate Active TABLET May 28, 2018 11:00pm tiZANidine 4 mg oral capsule (20 sources) Central alpha-2 Adrenergic Agonist take 1 tablet by mouth once daily tiZANidine HCl 4 MG 1 tab Orally daily Active tiZANidine HCl A ctive traMADol hydrochloride 50 mg oral tablet (1 source) Opioid Agonist Start: 05-29-2018 Tramadol Activ e TABLET May 28, 2018 11:00pm venlafaxine 37.5 mg oral tablet (20 sources) Serotonin and Norepinephrine Reuptake Inhibitor Start: 05-29-2018 Venlafaxine Active TABLET May 28, 2018 11:00pm Completed/Discontinued Medications Medication Drug Class(es) Dates Sig (Normalized) Sig (Original) Calcium + D 315-200 MG-UNIT (7 sources) take 1 tablet by jatin th once daily Calcium + D 315-200 MG-UNIT 1 tablet Orally once a day Not-Taking take 1 tablet by mouth once zheng y Calcium + D 315-200 MG-UNIT 1 tablet Orally once a day Active FreeStyle Baylee Sandwich - (7 sources) FreeStyle Baylee Sandwich - use with baylee sensor SQ daily for 365 days has but not using Not-Taking FreeStyle Baylee Sensor Syste m - (7 sources) FreeStyle Baylee Sensor System - use with baylee reader SQ change every 10 days for 90 days has but not usint Not-Taking Problems Active Problems Problem Classification Problem Date Documented Da te Episodic/Chronic Administrative/social admission (6 sources) Dietary counseling and surveillance Onset: 10-21-2021 Resolved: 04-21-2022 Episodic Congestive heart failure; nonhypertensive (1 source) Unspecified systolic (congestive) heart failure; Translations: [UNSPECIFIED SYSTOLIC HEART FAILURE] Onset: 11-09-2022 Chronic Coronary atherosclerosis and other heart disease (20 sources) Coronary arteriosclerosis; Translations: [Atherosclerotic heart disease of [place] coronary artery without angina pectoris] Onset: 11-25-2022 Chronic Diabetes mellitus with complications (20 sources) Hyperglycemia due to type 2 diabetes mellitus; Translations: [Type 2 diabetes mellitus with hyperglycemia] Onset: 10-21-2021 Resolved: 04-21-2022 Chronic Diabetes mellitus without complication (2 sources) Type 2 diabetes mellitus without complications; Translations: [Type 2 diabetes mellitus without complications] Onset: 11-25-2022 Chronic Disorders of lipid metabolism (20 sources) Hyperlipidemia; Translations: [Hyperlipidemia, unspecified] Onset: 10-21-2021 Resolved: 04-21-2022 Chronic E Codes: Natural/environment (1 source) Exposure to other specified factors, initial encounter; Translations: [EXPOSURE OTHER SPEC FACTORS INITIAL] Onset: 02-20-2023 Episodic Essential hypertension (20 sources) Essential hypertension; Translations: [Essential (primary) hypertension] Onset: 10-21-2021 Resolved: 04-21-2022 Chronic Genitourinary symptoms and ill-defined conditions (8 sources) Proteinuria, unspecified Onset: 04-21-2022 Resolved: 04-21-2022 Episodic Hepatitis (20 sources) Nonalcoholic steatohepatitis; Translations: [Nonalcoholic steatohepatitis (MEDEIROS)] Onset: 07-21-2021 Resolved: 07-21-2021 Chronic Nutritional deficiencies (20 sources) Vitamin D deficiency; Translations: [Vitamin D deficiency, unspecified] Chronic Other aftercare (1 source) nursing home (current) use of aspirin; Translations: [SHELTER CURRENT USE OF ASPIRIN] Onset: 02-20-2023 Episodic Other aftercare (1 source) Other shelter (current) drug therapy; Translations: [OTH SHELTER CURRENT DRUG THERAPY] Onset: 02-20-2023 Episodic Other aftercare (6 sources) Long-term current use of insulin; Translations: [nursing home (current) use of insulin] Episodic Other aftercare (1 source) owner (current) use of insulin Episodic Other connective tissue disease (3 sources) Pain in unspecified foot Episodic Other connective tissue disease (4 sources) Impingement syndrome of right shoulder; Translations: [IMPINGEMENT SYNDROME RIGHT SHOULDER] Onset: 12-09-2022 Episodic Other diseases of veins and lymphatics (4 sources) Lymphedema, not elsewhere classified; Translations: [LYMPHEDEMA NOT ELSEWHERE CLASSIFIED] Onset: 12-21-2022 Chronic Other liver diseases (20 sources) Steatosis of liver; Translations: [Fatty (change of) liver, not elsewhere classified] Chronic Other nervous system disorders (20 sources) Neuropathy; Translations: [Polyneuropathy, unspecified] Chronic Other nervous system disorders (3 sources) Polyneuropathy, unspecified Chronic Other nutritional; endocrine; and metabolic disorders (20 sources) Obese class II; Translations: [Body mass index (BMI) 38.0-38.9, adult] Chronic Other nutritional; endocrine; and metabolic disorders (20 sources) Body mass index 40+ - severely obese; Translations: [Body mass index (BMI) 40.0-44.9, adult] Chronic Other nutritional; endocrine; and metabolic disorders (13 sources) Body mass index (BMI) 40.0-44.9, adult; Translations: [BODY MASS INDEX BMI 40.0-44.9 ADULT] Onset: 10-21-2021 Resolved: 10-21-2021 Chronic Other nutritional; endocrine; and metabolic disorders (1 source) Body mass index (BMI) 39.0-39.9, adult Onset: 04-21-2022 Resolved: 04-21-2022 Chronic Other nutritional; endocrine; and metabolic disorders (15 sources) Metabolic syndrome X; Translations: [Metabolic syndrome] Chronic Other nutritional; endocrine; and metabolic disorders (20 sources) Obesity; Translations: [Obesity, unspecified] Chronic Other nutritional; endocrine; and metabolic disorders (3 sources) Metabolic syndrome Chronic Other nutritional; endocrine; and metabolic disorders (4 sources) Obesity, unspecified; Translations: [OBESITY UNSPECIFIED] Onset: 02-20-2023 Chronic Other nutritional; endocrine; and metabolic disorders (2 sources) Morbid (severe) obesity due to excess calories; Translations: [Morbid (severe) obesity due to excess calories] Onset: 11-25-2022 Chronic Other nutritional; endocrine; and metabolic disorders (1 source) Abnormal weight gain Episodic Other screening for suspected conditions (not mental disorders or infectious disease) (20 sources) Computed tomography result abnormal; Translations: [Abnormal findings on diagnostic imaging of other specified body structures] Chronic Other upper respiratory disease (4 sources) Epistaxis; Translations: [EPISTAXIS] Onset: 02-17-2023 Episodic Peripheral and visceral atherosclerosis (20 sources) Peripheral vascular disease; Translations: [Peripheral vascular disease, unspecified] Onset: 07-29-2022 Chronic Phlebitis; thrombophlebitis and thromboembolism (5 sources) Acute embolism and thrombosis of unspecified deep veins of unspecified lower extremity; Translations: [Acute embolism and thrombosis of unspecified deep veins of right lower extremity] Onset: 12-08-2022 Episodic Residual codes; unclassified (1 source) Edema, unspecified; Translations: [EDEMA UNSPECIFIED] Onset: 12-12-2022 Episodic Skin and subcutaneous tissue infections (1 source) Cellulitis of right lower limb Episodic Superficial injury; contusion (1 source) Abrasion of nose, initial encounter; Translations: [ABRASION OF NOSE INITIAL ENCOUNTER] Onset: 02-20-2023 Episodic Unclassified (4 sources) CHRN KIDNEY DISEASE STG 3 UNSP; Translations: [CHRN KIDNEY DISEASE STG 3 UNSP] Onset: 04-14-2022 Unclassified (1 source) Non-pressure chronic ulcer of unspecified part of right lower leg limited to breakdown of skin; Translations: [Non-pressure chronic ulcer of unspecified part of right lower leg limited to breakdown of skin] Onset: 08-24-2023 Past or Other Problems Problem Classification Problem Date Documented Da te Episodic/Chronic Nonspecific chest pain (3 sources) Precordial pain; Translations: [PRECORDIAL PAIN] Onset: 11-25-2022 Episodic Other connective tissue disease (4 sources) Pain in right foot; Translations: [PAIN IN RIGHT FOOT] Onset: 08-18-2022 Episodic Other diseases of kidney and ureters (4 sources) Cyst of kidney, acquired; Translations: [CYST OF KIDNEY ACQUIRED] Onset: 2022 Episodic Other lower respiratory disease (3 sources) Other forms of dyspnea; Translations: [OTHER FORMS OF DYSPNEA] Onset: 11-25-2022 Episodic Unclassified (1 source) CHRN KIDNEY DISEASE STG 3 UNSP; Translations: [CHRN KIDNEY DISEASE STG 3 UNSP] Onset: 11-08-2022 Results Test Name Value Interpretation Reference Range Facility Family Medicine Office/Clini c Noteon 09-27-2023 Family Medicine Office/Clinic Note HPI Staff Dong is a 73 year old male presenting for one month follow up mood Follow up for Mental Status: Medication adherence- Yes, takes medication as prescribed Medication refill needed: yesbupropion Suicidal thoughts-Not at this time Most recent ISABELA:4 Most recent PHQ:1 flu: UTD questions/concerns: needs refills now of bupropion, ntg and simvastatin History of Present Illness Dong Whitmore is a 73-year-old male who presents today for a follow-up evaluation of depression. The patient's assessments for depression and anxiety are within the normal limits. The patient indicates a positive change in his emotional state. He has been prescribed Wellbutrin for a duration of 10 years. The patient has experienced a weight gain of 5 pounds since the previous appointment and has not been keeping a record of his dietary intake. 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 Review of Systems PHQ Score Initial Depression Screen Score: 0 SCORE Physical Exam Vitals & Measurements T: 36.5 ?C(Temporal Artery) HR: 64(Peripheral) RR: 16 BP: 136/72 SpO2: 99% HT: 67 in HT: 171 cm WT: 128.1 kg WT: 281.82 lb BMI: 43.81 General: alert, no acute distress Cardiovascular: regular rate and rhythm, normal peripheral perfusion Respiratory: Lungs CTA, respirations non labored Extremities: no deformity, no trauma Neurological: oriented x 4, LOC appropriate for age, CN II-XII intact, motor strength equal & normal bilaterally, speech normal Assessment/Plan Total time spent preparing for the encounter, evaluating and assessing the patient, documenting the visit, and ordering appropriate follow-up work was 40 minutes. 1. Depressed mood (R45.89: Other symptoms and signs involving emotional state) Patient's PHQ and ISABELA scores are within normal limits. We will go ahead and increase his Wellbutrin to 300 mg to help with weight. Patient increased another 4 pounds. He is up a total of 26 pounds since 08/15/2023. Some of this I do believe is due to emotional eating. Next step would be to send him to a counselor for help with emotional eating. 2. BMI 40.0-44.9, adult (Z68.41: Body mass index [BMI] 40.0-44.9, adult) BMI education given. 3. Class 3 obesity (E66.01: Morbid (severe) obesity due to excess calories) Discussed diet and exercise in detail. The patient will need to start logging all of his food. 4. Nonsmoker (Z78.9: Other specified health status) Encouraged the patient to continue not smoking. 5. Type 2 diabetes mellitus with peripheral vascular disease (E11.51: Type 2 diabetes mellitus with diabetic peripheral angiopathy without gangrene) Patient's last A1c was 6.9%. Discussed with the patient trying medications like semaglutide or tirzepatide. The patient has declined both of them saying that his stomach does not handle it. Encouraged the patient to have a discussion with his diabetic doctor. 6. ULISES (obstructive sleep apnea) (G47.33: Obstructive sleep apnea (adult) (pediatric)) Continue using CPAP. Portions of this record may have been created with voice recognition artificial intelligence software, specifically [employer], [employer] and or [employer]. Substitutions may have occurred due to the inherent limitations of voice recognition and artificial intelligence software. ATTESTATION: Documentation services were performed after patient or guardian consented to allow [employer] to record this visit. HEMANTH technical operations specialist and provider reviewed before signing. HEMANTH: Sarah Louis Follow-up No qualifying data available We will see the patient back in 3 months. Problem List/Past Medical History Ongoing Acquired absence of right great toe Allergic rhinitis Anticoagulated BPH with obstruction/lower urinary tract symptoms Complex renal cyst Depressed mood Excessive dietary caloric intake GERD (gastroesophageal reflux disease) Hiatal hernia History of kidney stones Impotence Lumbar stenosis Microscopic hematuria Morbid obesity with body mass index of 40.0-44.9 in adult MEDEIROS (nonalcoholic steatohepatitis) Neuropathy OA (osteoarthritis) ULISES (obstructive sleep apnea) Psoriasis Renal mass Stage 3a chronic kidney disease Stasis ulcer Type 2 diabetes mellitus with peripheral vascular disease Type 2 diabetes mellitus with stage 3a chronic kidney disease and hypertension Urgency of urination Vitamin D deficiency Historical Amputation of toe of right foot Anxiety disorder BPH - benign prostatic hyperplasia Hyperlipidemia Procedure/Surgical History TOE AMPUTATION (11/16/2018), ESWL - Extracorporeal shockwave lithotripsy for renal calculus (06/07/2018), Cystoscopic removal of ureteric stent (01/10/2017), Cystoscopy and retrograde pyelography (12/05/2016), ysto, right RGP, right ureteroscopy, laser ablation large distal ureteral calculus, basket extraction, JJ ureteral stent placemen t under fluo (more content not included)... [facility] Comment on above: Result Comment: Elec tronically Signed By: Everett Miner MD\.br\Date and Time Signed: 09/27/23 09:49 EST\.br\Electronically Co-Signed By: Sarah Louis\.br\Date and Time Co-Signed: 09/20/23 16:22 EST Ambulatory Visit Summaryon 1 11-21-2022 Ambulatory Visit Summary DONG WHITMORE :1950 Visit Date:09/20/2023 Ambulatory Visit Instructions Your Diagnosis Depressed mood BMI 40.0-44.9, adult Class 3 obesity Nonsmoker Type 2 diabetes mellitus with peripheral vascular disease ULISES (obstructive sleep apnea) Your Care Team Attending Physician - Everett Miner MD Primary Care Physician - Everett Miner MD This Is Your Medications List acarbose (acarbose 25 mg oral tablet) aspirin (aspirin 81 mg oral tablet) buPROPion (Wellbutrin) gabapentin (gabapentin 300 mg Cap) losartan (losartan 50 mg Tab) meloxicam (meloxicam 7.5 mg Tab) metoprolol (metoprolol 50 mg ER Tab) nitroglycerin (Nitro 0.4 mg Tab) omega-3 polyunsaturated fatty acids (Fish Oil 1200 mg oral capsule) simvastatin (simvastatin 40 mg Tab) sitagliptin (Januvia 100 mg Tab) sodium bicarbonate (sodium bicarbonate 650 mg Tab) tizanidine (tiZANidine 4 mg Tab) venlafaxine (venlafaxine 37.5 mg Tab) Procedures Performed TOE AMPUTATION (11/16/2018), ESWL - Extracorporeal shockwave lithotripsy for renal calculus (06/07/2018), Cystoscopic removal of ureteric stent (01/10/2017), Cystoscopy and retrograde pyelography (12/05/2016), ysto, right RGP, right ureteroscopy, laser ablation large distal ureteral calculus, basket extraction, JJ ureteral stent placemen t under fluoroscopic guidance (06/23/2016), Cystoscopy, Right RGP, Right Ureteroscopy with stone basket extraction (12/02/2015), ulstrasound (12/02/2015), TURP - Transurethral resection of prostate (11/15/2007), Cystoscopy (11/05/2007), Cystoscopy (03/15/2001), Amputation of toe, back epidurals procdures x 8, Cardiac catheterization, combined right and left heart, Colonoscopy, CTR - Carpal tunnel release, Heel spur....., History of tonsillectomy, Placement of stent in cardiac conduit. Discharge Vitals Temperature (Temporal Artery) 36.5 ?C Heart Rate (Peripheral) 64 Respiratory Rate 16 Blood Pressure 136/72 Height 171 cm Height 67 in Weight 128.1 kg Weight 281.82 lb BMI 43.81 What to do next Scheduled Follow-Up Appointments Monday 2:45 PM EST With: LATRICIA SCHUSTER, Araceli Treadwell Where: [facility] Invalid Interpretation Code [address] [place] [address]- \.br \ Monday 9:30 AM EDT \.br\ With:\.br\ Where: [facility] Consultation Noteon 09-18-20 Consultation Note [id number] IFF [facility] A1C with Estimated Average G luon 09-11-2023 HbA1c (Bld) [Mass fraction] 6.900 % High 4.3-5.6 % [facility] cuaQea Other HbA1c (Bld) [Mass fraction] 151 mg/dL [facility] Other Glucose [Mass/Vol] 151 mg/dL Normal [facility] Comment on above: Order Comment: Reaso n for Exam Type 2 diabetes mellitus with diabetic chronic kidney diseas Result Comment: PERF ORMED BY: [place] [address] PATHOLOGIST FEED CRUSHER CHRISTINA MOYA M.D. Performed By: #### A 1C [facility] eA #### [facility] [address] [place] [address] HbA1c (Bld) [Mass fraction] 6.9 % High 4.3-5.6 [facility] Comment on above: Order Comment: Reaso n for Exam Type 2 diabetes mellitus with diabetic chronic kidney diseas Result Comment: Incr eased risk for diabetes: 5.7 - 6.4 diabetes: >6.4 glycemic control for adults with diabetes: <7.0 Performed By: #### A [facility]C [facility] eA #### [facility] [address] [id number] [facility] Glucose - FINGER STICKon Glucose [Mass/Vol] 138 mg/dL [facility] cuaQea Other Consultation Noteon 09-06-20 Consultation Note [id number] FF [facility] Consultation Noteon 08-28-20 Consultation Note [id number] FF [facility] US UNI ankle/arm indiceson 1 10-24-2022 US UNI ankle/arm indices [facility] [address] [place] [id number] Ultrasound Report Signed Patient: Dong Whitmore MR#: [id number] : 1950 Acct:[id number] Age/Sex: 73 / M ADM Date: 08/24/23 Loc: [facility] Room: Type: REG CLI Attending Dr: Eligio Soni MD Ordering Provider: Eligio Soni MD Date of Service: 08/24/23 US/US UNI ankle/arm indices: RIGHT NARAYAN CLAUDICATION Copies to: Eligio Soni MD LOWER EXTREMITY SEGMENTAL ARTERIAL DOPSCAN (PVR) INDICATION: Right leg claudication PROCEDURE: Right arm blood pressure is 139. Pressures at the right ankle are 194 using the posterior tibial artery, and 169 using the dorsalis pedis artery with ankle-brachial index of 1.40 1.22 . Wave forms by plethysmography are normal. US/US UNI ankle/arm indices IMPRESSION: NO HEMODYNAMICALLY SIGNIFICANT PERIPHERAL VASCULAR OCCLUSIVE DISEASE AT REST IN THE RIGHT LOWER EXTREMITY. Impression dictated by: Eligio Soni MD08/24/2023 3:31 PM Dictation Location: [place] [address] Tech: Britney Sotelo Transcribed By: CIRO 08/24/23 1531 Dictated By: Eligio Soni MD 08/24/23 1530 Signed By: 08/24/23 1531 Normal [facility] US venous duplex LE RTon US venous duplex LE RT [facility] Main [address] [address] Ultrasound Report Signed Patient: Dong Whitmore MR#: [id number] : 1950 Acct:[id number] Age/Sex: 73 / M ADM Date: 08/24/23 Loc: [facility] Room: Type: REG CLI Attending Dr: Eligio Soni MD Ordering Provider: Eligio Soni MD Date of Service: 08/24/23 US/US venous duplex LE RT: [id number] Copies to: Eligio Soni MD RIGHT LOWER EXTREMITY VENOUS DUPLEX INDICATION: Right leg cellulitis Unilateral right lower extremity venous duplex Doppler study was obtained utilizing B-mode, color- flow and spectral Doppler. FINDINGS: The right common femoral, femoral, and popliteal veins showed adequate compressibility, color-flow and augmentation. The right posterior tibial and peroneal veins were compressible, as well as proximal greater saphenous vein. The contralateral left common femoral vein was compressible with color-flow and augmentation. US/US venous duplex LE RT IMPRESSION: NO EVIDENCE OF DEEP VENOUS THROMBOSIS IN THE RIGHT LOWER EXTREMITY. NO SUPERFICIAL THROMBOPHLEBITIS WAS NOTED. Mild reflux was identified in the greater saphenous vein in the right lower extremity. Impression dictated by: Eligio Soni MD08/24/2023 3:31 PM Dictation Location: [place] [address] Tech: Coby Gibson Transcribed By: CIRO 08/24/23 1531 Dictated By: Eligio Soni MD 08/24/23 1531 Signed By: 08/24/23 1531 [facility] Ambulatory Visit Summaryon 1 10-21-2022 Ambulatory Visit Summary HAIM DONG Boom :1950 Visit Date:08/21/2023 Ambulatory Visit Instructions Your Diagnosis Depressed mood Primary hypertension Anxiety BMI 40.0-44.9, adult Class 3 obesity Your Care Team Attending Physician - Everett Miner MD Primary Care Physician - Everett Miner MD This Is Your Medications List acarbose (acarbose 25 mg oral tablet) aspirin (aspirin 81 mg oral tablet) buPROPion (Wellbutrin) gabapentin (gabapentin 300 mg Cap) losartan (losartan 50 mg Tab) meloxicam (meloxicam 7.5 mg Tab) metoprolol (metoprolol 50 mg ER Tab) multivitamin with minerals (Multivitamin, Therapeutic w/ Minerals) nitroglycerin (Nitro 0.4 mg Tab) omega-3 polyunsaturated fatty acids (Fish Oil 1200 mg oral capsule) simvastatin (simvastatin 40 mg Tab) sitagliptin (Januvia 100 mg Tab) tizanidine (tiZANidine 4 mg Tab) venlafaxine (venlafaxine 37.5 mg Tab) Procedures Performed TOE AMPUTATION (11/16/2018), ESWL - Extracorporeal shockwave lithotripsy for renal calculus (06/07/2018), Cystoscopic removal of ureteric stent (01/10/2017), Cystoscopy and retrograde pyelography (12/05/2016), ysto, right RGP, right ureteroscopy, laser ablation large distal ureteral calculus, basket extraction, JJ ureteral stent placemen t under fluoroscopic guidance (06/23/2016), Cystoscopy, Right RGP, Right Ureteroscopy with stone basket extraction (12/02/2015), ulstrasound (12/02/2015), TURP - Transurethral resection of prostate (11/15/2007), Cystoscopy (11/05/2007), Cystoscopy (03/15/2001), Amputation of toe, back epidurals procdures x 8, Cardiac catheterization, combined right and left heart, Colonoscopy, CTR - Carpal tunnel release, Heel spur....., History of tonsillectomy, Placement of stent in cardiac conduit. Discharge Vitals Temperature (Oral) 36.6 ?C Heart Rate (Peripheral) 70 Respiratory Rate 16 Blood Pressure 118/60 Height 171 cm Height 67 in Weight 126 kg Weight 277.2 lb BMI 43.09 What to do next Scheduled Follow-Up Appointments Monday 2:40 PM EST With: Kristofer SCHUSTER, Everett Bee Where: [facility] Invalid Interpretation Code [address], [address] [place] [address]- \.br \ Monday 9:30 AM EDT \.br\ With:\.br\ Where: [facility] Family Medicine Office/Clini c Noteon 08-21-2023 Family Medicine Office/Clinic Note HPI Staff Dong is a 72 year old male presenting for one month follow up mood Follow up for Mental Status: Medication adherence- Yes, takes medication as prescribed MEdication refill needed: yes Suicidal thoughts-Not at this time Most recent ISABELA: 4 Most recent PHQ: 2 questions/concerns: will be needing refills of bupropion, januvia, simvastatin, nitroglycerin and tizanidine by the end of the year some has some things to discuss with you History of Present Illness - HEre to follow up on mood - Mood is better - Weight continues to increase - Pt is upset and wants options. Review of Systems PHQ Score Initial Depression Screen Score: 2 SCORE Physical Exam Vitals & Measurements T: 36.6 ?C(Oral) HR: 70(Peripheral) RR: 16 BP: 118/60 SpO2: 95% HT: 67 in HT: 171 cm WT: 126 kg WT: 277.2 lb BMI: 43.09 General: alert, no acute distress ENMT: oral mucosa moist, Cardiovascular: regular rate and rhythm, normal peripheral perfusion Respiratory: Lungs CTA, respirations non labored Extremities: no deformity, no trauma Neurological: oriented x 4, LOC appropriate for age, CN II-XII intact, motor strength equal & normal bilaterally, speech normal Abdomen: Soft, Nontender, Non-distended, + BS Assessment/Plan Total time spent preparing for the encounter, evaluating and assessing the patient, documenting the visit, and ordering appropriate follow-up work was 55 minutes. 1. Depressed mood (R45.89: Other symptoms and signs involving emotional state) - Better. - Still struggling with acute stressors. - Pt is going to work on this. - Follow up in 1 month Ordered: Body Mass Index (BMI) documented 3008F Current tobacco non-user 1036F Depression Screening Negative 3352F Influenza immunization administered or previously received 4274F Most recent diastolic blood pressure <80 mm Hg 3078F Patient screen for fall risk: no falls in last year or 1 fall with no injury in last year 1101F Systolic BP <130 mm Hg (Most Recent) 3074F 2. Primary hypertension (I10: Essential (primary) hypertension) - At goal. - No issues at this time Ordered: Body Mass Index (BMI) documented 3008F Current tobacco non-user 1036F Depression Screening Negative 3352F Influenza immunization administered or previously received 4274F Most recent diastolic blood pressure <80 mm Hg 3078F Patient screen for fall risk: no falls in last year or 1 fall with no injury in last year 1101F Systolic BP <130 mm Hg (Most Recent) 3074F 3. Anxiety (F41.9: Anxiety disorder, unspecified) - As per number 1. Ordered: Body Mass Index (BMI) documented 3008F Current tobacco non-user 1036F Depression Screening Negative 3352F Influenza immunization administered or previously received 4274F Most recent diastolic blood pressure <80 mm Hg 3078F Patient screen for fall risk: no falls in last year or 1 fall with no injury in last year 1101F Systolic BP <130 mm Hg (Most Recent) 3074F 4. BMI 40.0-44.9, adult (Z68.41: Body mass index [BMI] 40.0-44.9, adult) - BMI education given Ordered: Body Mass Index (BMI) documented 3008F Current tobacco non-user 1036F Depression Screening Negative 3352F Influenza immunization administered or previously received 4274F Most recent diastolic blood pressure <80 mm Hg 3078F Patient screen for fall risk: no falls in last year or 1 fall with no injury in last year 1101F Systolic BP <130 mm Hg (Most Recent) 3074F 5. Class 3 obesity (E66.01: Morbid (severe) obesity due to excess calories) - Discussed diet and exercise Ordered: Body Mass Index (BMI) documented 3008F Current tobacco non-user 1036F Depression Screening Negative 3352F Influenza immunization administered or previously received 4274F Most recent diastolic blood pressure <80 mm Hg 3078F Patient screen for fall risk: no falls in last year or 1 fall with no injury in last year 1101F Systolic BP <130 mm Hg (Most Recent) 3074F 6. Excessive dietary caloric intake (R63.2: Polyphagia) - Discussed diet and exercise in detail. - Follow up in 1 month - Goal is to be down 10 pounds Follow-up No qualifying data available Patient Education Protein-Energy Malnutrition Hypertension, Adult BMI for Adults Problem List/Past Medical History Ongoing Acquired absence of right great toe Allergic rhinitis Anticoagulated BPH with obstruction/lower urinary tract symptoms Complex renal cyst Depressed mood Excessive dietary caloric intake GERD (gastroesophageal reflux disease) Hiatal hernia History of kidney stones Impotence Lumbar stenosis Microscopic hematuria Morbid obesity with body mass index of 40.0-44.9 in adult MEDEIROS (nonalcoholic steatohepatitis) Neuropathy OA (osteoarthritis) ULISES (obstructive sleep apnea) Psoriasis Renal mass Stage 3a chronic kidney disease Stasis ulcer Type 2 diabetes mellitus with peripheral vascular disease Type 2 diabetes mellitus with stage 3a chronic kidney d (more content not included)... [facility] Comment on above: Result Comment: Elec tronically Signed By: Kristofer SCHUSTER, Everett Bee\.br\Date and Time Signed: 08/21/23 14:16 EST Patient Educationon 08-21-20 Patient Education Cardiovascular Hypertension, Adult High blood pressure (hypertension) is when the force of blood pumping through the arteries is too strong. The arteries are the blood vessels that carry blood from the heart throughout the body. Hypertension forces the heart to work harder to pump blood and may cause arteries to become narrow or stiff. Untreated or uncontrolled hypertension can lead to a heart attack, heart failure, a stroke, kidney disease, and other problems. A blood pressure reading consists of a higher number over a lower number. Ideally, your blood pressure should be below 120/80. The first ( top ) number is called the systolic pressure. It is a measure of the pressure in your arteries as your heart beats. The second ( bottom ) number is called the diastolic pressure. It is a measure of the pressure in your arteries as the heart relaxes. What are the causes? The exact cause of this condition is not known. There are some conditions that result in high blood pressure. What increases the risk? Certain factors may make you more likely to develop high blood pressure. Some of these risk factors are under your control, including: ? Smoking. ? Not getting enough exercise or physical activity. ? Being overweight. ? Having too much fat, sugar, calories, or salt (sodium) in your diet. ? Drinking too much alcohol. Other risk factors include: ? Having a personal history of heart disease, diabetes, high cholesterol, or kidney disease. ? Stress. ? Having a family history of high blood pressure and high cholesterol. ? Having obstructive sleep apnea. ? Age. The risk increases with age. What are the signs or symptoms? High blood pressure may not cause symptoms. Very high blood pressure (hypertensive crisis) may cause: ? Headache. ? Fast or irregular heartbeats (palpitations). ? Shortness of breath. ? Nosebleed. ? Nausea and vomiting. ? Vision changes. ? Severe chest pain, dizziness, and seizures. How is this diagnosed? This condition is diagnosed by measuring your blood pressure while you are seated, with your arm resting on a flat surface, your legs uncrossed, and your feet flat on the floor. The cuff of the blood pressure monitor will be placed directly against the skin of your upper arm at the level of your heart. Blood pressure should be measured at least twice using the same arm. Certain conditions can cause a difference in blood pressure between your right and left arms. If you have a high blood pressure reading during one visit or you have normal blood pressure with other risk factors, you may be asked to: ? Return on a different day to have your blood pressure checked again. ? Monitor your blood pressure at home for 1 week or longer. If you are diagnosed with hypertension, you may have other blood or imaging tests to help your health care provider understand your overall risk for other conditions. How is this treated? This condition is treated by making healthy lifestyle changes, such as eating healthy foods, exercising more, and reducing your alcohol intake. You may be referred for counseling on a healthy diet and physical activity. Your health care provider may prescribe medicine if lifestyle changes are not enough to get your blood pressure under control and if: ? Your systolic blood pressure is above 130. ? Your diastolic blood pressure is above 80. Your personal target blood pressure may vary depending on your medical conditions, your age, and other factors. Follow these instructions at home: Eating and drinking ? Eat a diet that is high in fiber and potassium, and low in sodium, added sugar, and fat. An example of this eating plan is called the DASH diet. DASH stands for Dietary Approaches to Stop Hypertension. To eat this way: ? Eat plenty of fresh fruits and vegetables. Try to fill one half of your plate at each meal with fruits and vegetables. ? Eat whole grains, such as whole-wheat pasta, brown rice, or whole-grain bread. Fill about one fourth of your plate with whole grains. ? Eat or drink low-fat dairy products, such as skim milk or low-fat yogurt. ? Avoid fatty cuts of meat, processed or cured meats, and poultry with skin. Fill about one fourth of your plate with lean proteins, such as fish, chicken without skin, beans, eggs, or tofu. ? Avoid pre-made and processed foods. These tend to be higher in sodium, added sugar, and fat. ? Reduce your daily sodium intake. Many people with hypertension should eat less than 1,500 mg of sodium a day. ? Do not drink alcohol if: ? Your health care provider tells you not to drink. ? You are , may be , or are planning to become . ? If you drink alcohol: ? Limit how much you have to: ? 0?1 drink a day for women. ? 0?2 drinks a day for men. ? Know how much alcohol is in your drink. In the [place] one drink equals one 12 oz bottle of beer (355 mL), one 5 oz glass of wine (148 mL), or one 1? oz glass (more content not included)... [facility] Pre-Visit Planningon 023 Pre-Visit Planning - From: Ceci Yu To: Kristofer SCHUSTER, Everett Bee; Sent: 08/17/2023 10:44:28 EST Subject: Pre-Visit Planning Due Date/Time: 08/17/2023 10:44:00 EST Caller Name: DONG WHITMORE; Caller Number: H , B [phone] Nc Dr. Miner. During a pre-visit planning chart review, I noted the following documentation in the medical record: Current Problem List: Depressed mood (Other symptoms and signs involving emotional state). Current Medication List: bupropion and venlafaxine. 07/26/2023 Office Visit Note: Depressed mood (R45.89: Other symptoms and signs involving emotional state) - Discussed mood and gratitude with the patient. He is going to start looking at a positive attitude. Will follow up in 1 month. PHQ-9 Score: =2 on 05/10/2023 and =11 on 04/27/2023. Based on your medical judgment, can you please clarify which, if any, of the following conditions are present? I can update the Chronic Problem List with your response if you would like. Major Depressive Disorder, Single Episode ? Major depressive disorder, single episode, mild ? Major depressive disorder, single episode, moderate ? Major depressive disorder, single episode, severe without mention of psychotic behavior ? Major depressive disorder, single episode, in partial remission ? Major depressive disorder, 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 Major Depressive Disorder, Recurrent ? Major depressive disorder, recurrent, mild ? Major depressive disorder, recurrent, moderate ? Major depressive disorder, recurrent, severe without mention of psychotic behavior ? Major depressive disorder, recurrent, in partial remission ? Major depressive disorder, recurrent, in full remission -Other (Please Specify): In responding to this request, please exercise your independent professional judgement. The fact that a question is asked does not imply that any particular answer is desired or expected. If you have any questions, please feel free to contact me at extension [phone]. Thank you! Ceci Yu LPN Invalid Interpretation Code 272 [facility] Consultation Noteon 08-10-20 Consultation Note [id number] IFF [facility] Family Medicine Office/Clini c Noteon 07-26-2023 Family Medicine Office/Clinic Note HPI Staff Dong is a 72 year old male presenting for 3 month follow up dm, htn, anxiety Do you have any of the following symptoms? Foot Exam: UTD by robert Eye Exam: UTD few weeks ago Last A1C: done at endo's office 7.2 last time Statin: simvastatin 40mg qd Patient is here for follow up on hypertension. How often are you checking your blood pressure? Doesnt check BP at home What are your average readings? N/A, Not checking at home Yearly BMP: 05/10/23 Follow up for Mental Status: Medication adherence- Yes, takes medication as prescribed MEdication refill needed: _ Suicidal thoughts-Not at this time Most recent ISABELA: 3 Most recent PHQ: 0 flu: UTD questions/concerns: pains in toes/legs, pain and shoulder he'd like to discuss History of Present Illness - Here for follow up. Robert saw the patient and A1c is now closer to normal. Had a recent increase in meds. Pain management is helping the pain. Mostly having issues on the right. Has a wound on the R leg, but Vascular said its a vein issue. No other issues at this time. Review of Systems PHQ Score Initial Depression Screen Score: 0 Physical Exam Vitals & Measurements T: 36.9 ?C(Temporal Artery) HR: 64(Peripheral) RR: 16 BP: 130/82 SpO2: 100% HT: 67 in HT: 171 cm WT: 126.5 kg WT: 278.3 lb BMI: 43.26 General: alert, no acute distress ENMT: oral mucosa moist, Cardiovascular: regular rate and rhythm, normal peripheral perfusion Respiratory: Lungs CTA, respirations non labored Extremities: no deformity, no trauma, Multiple ulcers in different phases of healing noted on the RL extremities. Neurological: oriented x 4, LOC appropriate for age, CN II-XII intact, motor strength equal & normal bilaterally, speech normal Abdomen: Soft, Nontender, Non-distended, + BS Assessment/Plan 1. Type 2 diabetes mellitus with peripheral vascular disease (E11.51: Type 2 diabetes mellitus with diabetic peripheral angiopathy without gangrene) - Improving with Endo - Will continue to monitor along. Ordered: A1c POC [id number] Body Mass Index (BMI) documented 3008F Current tobacco non-user 1036F Depression Screening Negative 3352F Influenza immunization administered or previously received 4274F Most recent diastolic blood pressure 80-89 mm Hg 3079F Patient screen for fall risk: no falls in last year or 1 fall with no injury in last year 1101F Systolic BP 130-139 mm Hg (Most Recent) 3075F 2. Type 2 diabetes mellitus with stage 3a chronic kidney disease and hypertension (E11.22: Type 2 diabetes mellitus with diabetic chronic kidney disease) - As above Ordered: A1c POC 79681 Body Mass Index (BMI) documented 3008F Current tobacco non-user 1036F Depression Screening Negative 3352F Influenza immunization administered or previously received 4274F Most recent diastolic blood pressure 80-89 mm Hg 3079F Patient screen for fall risk: no falls in last year or 1 fall with no injury in last year 1101F Systolic BP 130-139 mm Hg (Most Recent) 3075F 3. Stage 3a chronic kidney disease (N18.31: Chronic kidney disease, stage 3a) - Stable Ordered: A1c POC 55212 Body Mass Index (BMI) documented 3008F Current tobacco non-user 1036F Depression Screening Negative 3352F Influenza immunization administered or previously received 4274F Most recent diastolic blood pressure 80-89 mm Hg 3079F Patient screen for fall risk: no falls in last year or 1 fall with no injury in last year 1101F Systolic BP 130-139 mm Hg (Most Recent) 3075F 4. Acquired absence of right great toe (Z89.411: Acquired absence of right great toe) - No new issues Ordered: A1c POC 52353 Body Mass Index (BMI) documented 3008F Current tobacco non-user 1036F Depression Screening Negative 3352F Influenza immunization administered or previously received 4274F Most recent diastolic blood pressure 80-89 mm Hg 3079F Patient screen for fall risk: no falls in last year or 1 fall with no injury in last year 1101F Systolic BP 130-139 mm Hg (Most Recent) 3075F 5. BMI 40.0-44.9, adult (Z68.41: Body mass index [BMI] 40.0-44.9, adult) - BMI education given Ordered: A1c POC 41532 Body Mass Index (BMI) documented 3008F Current tobacco non-user 1036F Depression Screening Negative 3352F Influenza immunization administered or previously received 4274F Most recent diastolic blood pressure 80-89 mm Hg 3079F Patient screen for fall risk: no falls in last year or 1 fall with no injury in last year 1101F Systolic BP 130-139 mm Hg (Most Recent) 3075F 6. Class 3 obesity (E66.01: Morbid (severe) obesity due to excess calories) - Diet and exercise advised. Ordered: Body Mass Index (BMI) documented 3008F Current tobacco non-user 1036F Depression Screening Negative 3352F Influenza immunization administered or previously received 4274F Most recent diastolic blood pressure 80-89 mm Hg 3079F Patient screen for fall risk: no falls in last year or 1 fall with no injury in last ye (more content not included)... [facility] Comment on above: Result Comment: Elec tronically Signed By: Kristofer SCHUSTER, Everett Bee\.br\Date and Time Signed: 07/26/23 11:59 EDT Patient Educationon 07-26-20 Patient Education Nutrition BMI for Adults What is BMI? Body mass index (BMI) is a number that is calculated from a person's weight and height. BMI can help estimate how much of a person's weight is composed of fat. BMI does not measure body fat directly. Rather, it is an alternative to procedures that directly measure body fat, which can be difficult and expensive. BMI can help identify people who may be at higher risk for certain medical problems. What are BMI measurements used for? BMI is used as a screening tool to identify possible weight problems. It helps determine whether a person is obese, overweight, a healthy weight, or underweight. BMI is useful for: ? Identifying a weight problem that may be related to a medical condition or may increase the risk for medical problems. ? Promoting changes, such as changes in diet and exercise, to help reach a healthy weight. BMI screening can be repeated to see if these changes are working. How is BMI calculated? BMI involves measuring your weight in relation to your height. Both height and weight are measured, and the BMI is calculated from those numbers. This can be done either in [place] or metric measurements. Note that charts and online BMI calculators are available to help you find your BMI quickly and easily without having to do these calculations yourself. To calculate your BMI in [place] measurements: 1. Measure your weight in pounds (lb). 2. Multiply the number of pounds by 703. ? For example, for a person who weighs 180 lb, multiply that number by 703, which equals 126,540. 3. Measure your height in inches. Then multiply that number by itself to get a measurement called inches squared. ? For example, for a person who is 70 inches tall, the inches squared measurement is 70 inches x 70 inches, which equals 4,900 inches squared. 4. Divide the total from step 2 (number of lb x 703) by the total from step 3 (inches squared): 126,540 ? 4,900 = 25.8. This is your BMI. To calculate your BMI in metric measurements: 1. Measure your weight in kilograms (kg). 2. Measure your height in meters (m). Then multiply that number by itself to get a measurement called meters squared. ? For example, for a person who is 1.75 m tall, the meters squared measurement is 1.75 m x 1.75 m, which is equal to 3.1 meters squared. 3. Divide the number of kilograms (your weight) by the meters squared number. In this example: 70 ? 3.1 = 22.6. This is your BMI. What do the results mean? BMI charts are used to identify whether you are underweight, normal weight, overweight, or obese. The following guidelines will be used: ? Underweight: BMI less than 18.5. ? Normal weight: BMI between 18.5 and 24.9. ? Overweight: BMI between 25 and 29.9. ? Obese: BMI of 30 or above. Keep these notes in mind: ? Weight includes both fat and muscle, so someone with a muscular build, such as an athlete, may have a BMI that is higher than 24.9. In cases like these, BMI is not an accurate measure of body fat. ? To determine if excess body fat is the cause of a BMI of 25 or higher, further assessments may need to be done by a health care provider. ? BMI is usually interpreted in the same way for men and women. Where to find more information For more information about BMI, including tools to quickly calculate your BMI, go to these websites: ? Centers for Disease Control and Prevention: www.cdc.gov ? [place] Heart Association: www.heart.org ? National Heart, Lung, and Blood [place] [employer]: www.nhlbi.nih.gov Summary ? Body mass index (BMI) is a number that is calculated from a person's weight and height. ? BMI may help estimate how much of a person's weight is composed of fat. BMI can help identify those who may be at higher risk for certain medical problems. ? BMI can be measured using [place] measurements or metric measurements. ? BMI charts are used to identify whether you are underweight, normal weight, overweight, or obese. This information is not intended to replace advice given to you by your health care provider. Make sure you discuss any questions you have with your health care provider. Document Revised: 06/17/2020 Document Reviewed: 04/24/2020 [employer] Patient Education ? 2022 [place] [facility] Physician Referralon 023 Physician Referral [id number]#1.00 TIFF [facility] Pre-Visit Planningon 023 Pre-Visit Planning - From: Ceci Yu To: Everett Miner MD; Sent: 07/24/2023 15:20:33 EDT Subject: Pre-Visit Planning Due Date/Time: 07/24/2023 15:20:00 EDT Caller Name: DONG WHITMORE; Caller Number: H , B [phone] Nc Dr. Miner. During a pre-visit planning chart review, I noted the following documentation in the medical record indicates this patient has been diagnosed as having: Amputation of toe of right foot (Complete traumatic amputation of one right lesser toe, initial encounter). ? The following is also documented in the medical record: 11/16/2018 Operative Report: OPERATION: 1. Distal Syme's amputation, right great toe. 2. Amputation to the level of the metatarsophalangeal joint, right second digit. 04/27/2023 Office Visit Note: Physical Exam- Extremities: no deformity, no trauma, Stasis ulcer noted on the right lower extremity with chronic stasis pigment changes, patient has an amputation of his first and second digit on the right with abnormal changes to the first joint of the third toe. Based on your medical judgment, can you please further validate the above diagnosis? I can update the Chronic Problem List with your response if you would like. -Acquired absence of right great toe -Acquired absence of other right toe(s) -The above diagnosis is not supported by clinical indicators and is resolved. -The above diagnosis is supported by the following clinical indicators: __ -Other (please specify): In responding to this request, please exercise your independent professional judgment. The fact that a question is asked does not imply that any particular answer is desired or expected. If you have any questions, please feel free to contact me at extension [phone]. Thank you! Ceci Yu LPN From: Kristofer SCHUSTER, Everett Bee To: Ceci Yu; Sent: 07/24/2023 16:58:10 EDT Subject: RE: Pre-Visit Planning Caller Name: DONG WHITMORE; Caller Number: H , B [phone] OK to add the first one. Thank you Normal [address] [place] [address] Consultation Noteon 07-19-20 Consultation Note [id number]#1.00T IFF [facility] Operative Reporton Operative Report [id number]#1.00T IFF [facility] Consultation Noteon 07-03-20 Consultation Note [id number]#1.00CD :127 [facility] Nursing Note - Woundon 06-28 Nursing Note - Wound [id number]#2.00 CD:127 [facility] Physician Referralon 023 Physician Referral [id number]#1.00CD :127 [facility] Consent for Procedure/Surger yon 06-26-2023 Consent for Procedure/Surgery [id number]#1.00C D:127 [facility] Consent for Treatmenton 06-09 Consent for Treatment [id number]#1.00C D:127 [facility] Multi-Wound Charton 06-26-20 Multi-Wound Chart [id number]#1.00 CD:127 [facility] Nursing Assessment - Woundon 06-26-2023 Nursing Assessment - Wound [id number]#1.00 CD:127 [facility] Physician Orderon 06-26-2023 Physician Order [id number]#1.00 CD:127 [facility] Progress Note - Woundon 06-09 Progress Note - Wound [id number]#1.00 CD:127 [facility] Office Visiton 06-21-2023 Follow-up visit [id number] Carlos Whitmore 1950 M Date Provider Department Center 06/21/2023 Varun8-ELAINE FISHER [facility] Family History Problem Relation Age of Onset Coronary artery disease Other Diabetes Other Family Status - Relation Status Age at Other Level of Service:63661 [place] OFFICE/OUTPATIENT ESTABLISHED MOD MDM 30-39 MIN Normal [facility] Operative Reporton 3 Operative Report [id number]#1.00CD :127 [facility] Operative Reporton 3 Operative Report [id number]#1.00C D:127 [facility] Consultation Noteon 05-27-20 23 Consultation Note [id number]#1.00C D:127 [facility] Nursing Assessment - Woundon 05-17-2023 Nursing Assessment - Wound [id number]#1.00 CD:127 [facility] Family Medicine Office/Clini c Noteon 05-16-2023 Family Medicine Office/Clinic Note Chief Complaint Subsequent Medicare Wellness History of Present Illness I was in the office and available for consultation and to provide direct supervision at the time of this visit. I have provided supervision of the care team and have reviewed this chart and office note and agree with the plan of care. Covid-19, MERS, Ebola Screen *Contact With Person With Highly Contagious Disease Like Ebola/MERS/COVID-19 AND Have One or More of the Symptoms Below : No *Travel to a Country With Wide-Spread Ebola/MERS/COVID-19 in the Past 21 Days AND Have One or More of the Symptoms Below : No Patient Reported Covid-19 Testing : No *Verify Droplet, Contact Precautions for Ebola (Reference for CDC) : N/A *Verify Airborne, Droplet Precautions for MERS/COVID-19 : N/A Conrad Yoon R - 05/10/2023 9:11 EDT Medicare/Medicaid Summary Height/Length Measured : 171 cm(Converted to: 5 ft 7 in, 67.32 in) Weight Measured : 122 kg(Converted to: 268 lb 15 Ounces, 268.964 lb) Body Mass Index Measured : 41.72 kg/m2 Height in Inches : 67 in Weight in Pounds : 268.4 lb Waist Measurement : 135 cm(Converted to: 53 in) Peripheral Pulse Rate : 56 bpm (LOW) SpO2 : 96 % Conrad Yoon Kanchan Swanson 05/10/2023 10:28 EDT Chief Complaint : Subsequent Medicare Wellness Patient Counseled : Nutrition, Physical activity, Elevated BMI Blood Pressure Position : Sitting O2 Sat Resting/Exertion Alpha : Resting Pain Present : No actual or suspected pain Conrad Yoon Kanchan Swanson 05/10/2023 9:11 EDT Hearing and Vision Screening FT FT Whisper Test Comments : notes some hearing loss, no hearing aids worn Vision Screen Comments : wears corrective lenses, follows with Dr. Santana yearly Smith Yoonzuleyka Hemphill - 05/10/2023 9:19 EDT Advance Directive FT Advance Directive Date : copy at home, encouraged to bring to office Type of Advance Directive : Living will, Medical durable power of commercial attorney Patient Wishes to Receive Further Information on Advance Directives : No Organ Donation Consent : Yes Conrad Yoon Kanchan Swanson 05/10/2023 9:19 EDT Advance Directive : Yes Conrad Yoon Kanchan Swanson 05/10/2023 9:11 EDT Procedures / Surgeries FT - Procedure History (As Of: 05/10/2023 10:31:13 EDT) Procedure Dt/Tm: 12/02/2015 ; Anesthesia Minutes: 0 ; Procedure Name: ulstrasound ; Procedure Minutes: 0 ; Last Reviewed Dt/Tm: 05/10/2023 09:27:20 EDT Procedure Dt/Tm: 12/02/2015 ; Provider: Araceli Bermudez MD; Anesthesia Minutes: 0 ; Procedure Name: Cystoscopy, Right RGP, Right Ureteroscopy with stone basket extraction ; Procedure Minutes: 0 ; Last Reviewed Dt/Tm: 05/10/2023 09:27:20 EDT Procedure Dt/Tm: 06/23/2016 ; Provider: Araceli Bermudez MD; Anesthesia Minutes: 0 ; Procedure Name: ysto, right RGP, right ureteroscopy, laser ablation large distal ureteral calculus, basket extraction, JJ ureteral stent placemen t under fluoroscopic guidance ; Procedure Minutes: 0 ; Last Reviewed Dt/Tm: 05/10/2023 09:27:20 EDT Anesthesia Minutes: 0 ; Procedure Name: Cardiac catheterization, combined right and left heart x2 ; Procedure Minutes: 0 ; Last Reviewed Dt/Tm: 05/10/2023 09:27:20 EDT Location: [facility] ; Anesthesia Minutes: 0 ; Procedure Name: back epidurals procdures x 8 ; Procedure Minutes: 0 ; Last Reviewed Dt/Tm: 05/10/2023 09:27:20 EDT Anesthesia Minutes: 0 ; Procedure Name: CTR - Carpal tunnel release left ; Procedure Minutes: 0 ; Last Reviewed Dt/Tm: 05/10/2023 09:27:20 EDT Anesthesia Minutes: 0 ; Procedure Name: Amputation of toe left ; Procedure Minutes: 0 ; Last Reviewed Dt/Tm: 05/10/2023 09:27:20 EDT Anesthesia Minutes: 0 ; Procedure Name: History of tonsillectomy ; Procedure Minutes: 0 ; Last Reviewed Dt/Tm: 05/10/2023 09:27:20 EDT Anesthesia Minutes: 0 ; Procedure Name: Heel spur ; Procedure Minutes: 0 ; Last Reviewed Dt/Tm: 05/10/2023 09:27:20 EDT Procedure Dt/Tm: 11/16/2018 ; Anesthesia Minutes: 0 ; Procedure Name: TOE AMPUTATION ; Procedure Minutes: 0 ; Last Reviewed Dt/Tm: 05/10/2023 09:27:20 EDT Procedure Dt/Tm: 06/07/2018 ; Anesthesia Minutes: 0 ; Procedure Name: Cysto, Lt retrogrades, Lt stent, Ureteral cath, Lt ESWL ; Procedure Minutes: 0 ; Comments: 06/21/2019 14:34 Marilynn Huber MA Cysto, Lt retrogrades, Lt stent, Ureteral cath, Lt ESWL ; Last Reviewed Dt/Tm: 05/10/2023 09:27:20 EDT Procedure Dt/Tm: 03/15/2001 ; Anesthesia Minutes: 0 ; Procedure Name: Cystoscopy ; Procedure Minutes: 0 ; Last Reviewed Dt/Tm: 05/10/2023 09:27:20 EDT Procedure Dt/Tm: 11/15/2007 ; Anesthesia Minutes: 0 ; Procedure Name: TURP - Transurethral resection of prostate ; Procedure Minutes: 0 ; Last Reviewed Dt/Tm: 05/10/2023 09:27:20 EDT Anesthesia Minutes: 0 ; Procedure Name: Placement of stent in cardiac conduit ; Procedure Minutes: 0 ; Comments: 06/21/2019 14:29 Marilynn Huber MA x4 ; Last Reviewed Dt/Tm: 05/10/2023 09:27:20 EDT Procedure Dt/Tm: 11/05/2007 ; Anesthesia Minutes: 0 ; Procedure Name: Cystoscopy ; Procedure Minutes: 0 ; Last Reviewed Dt/Tm: 05/10/2023 09:27:20 EDT Pr (more content not included)... [facility] Comment on above: Result Comment: Elec tronically Signed By: Kristofer SCHUSTER, Everett Bee\.br\Date and Time Signed: 05/16/23 13:31 EDT\.br\Electronically Co-Signed By: Conrad Yoon.br\Date and Time Co-Signed: 05/10/23 11:00 EDT Auth for Release of Medical Recordson 05-15-2023 Auth for Release of Medical Records [id number]#1.00C D:127 [facility] Consent for Procedure/Surger yon 05-15-2023 Consent for Procedure/Surgery [id number]#1.00C D:127 [facility] Consent for Treatmenton Consent for Treatment [id number]#1.00C D:127 [facility] Consent to Photographon Consent to Photograph [id number]#1.00C D:127 [facility] Correspondence - Woundon Correspondence - Wound [id number]#1.00C D:127 [facility] Correspondence - Wound [id number]#1.00C D:127 [facility] Nursing Assessment - Woundon 05-15-2023 Nursing Assessment - Wound [id number]#1.00C D:127 [facility] Nursing Note - Woundon 05-15 Nursing Note - Wound [id number]#1.00 CD:127 [facility] Physician Orderon 05-15-2023 Physician Order [id number]#1.00 CD:127 [facility] Progress Note - Woundon 08-0 Progress Note - Wound [id number]#1.00 CD:127 [facility] Ambulatory Visit Summaryon 0 05-10-2023 Ambulatory Visit Summary DONG WHITMORE :1950 Visit Date:05/10/2023 Ambulatory Visit Instructions Your Diagnosis Annual visit for general adult medical examination without abnormal findings Type 2 diabetes mellitus with hyperglycemia, without long-term current use of insulin Primary hypertension Hyperlipidemia BPH with obstruction/lower urinary tract symptoms Stage 3a chronic kidney disease Anxiety and depression Morbid obesity with body mass index of 40.0-44.9 in adult Your Care Team Attending Physician - Nanette Do Primary Care Physician - Everett Miner MD This Is Your Medications List acarbose (acarbose 25 mg oral tablet) aspirin (aspirin 81 mg oral tablet) buPROPion (Wellbutrin) losartan (losartan 50 mg Tab) metoprolol (metoprolol 50 mg ER Tab) multivitamin with minerals (Multivitamin, Therapeutic w/ Minerals) nitroglycerin (Nitro 0.4 mg Tab) omega-3 polyunsaturated fatty acids (Fish Oil 1200 mg oral capsule) simvastatin (simvastatin 40 mg Tab) sitagliptin (Januvia 100 mg Tab) sodium bicarbonate (sodium bicarbonate 650 mg Tab) tizanidine venlafaxine (venlafaxine 37.5 mg Tab) Procedures Performed TOE AMPUTATION (11/16/2018), ESWL - Extracorporeal shockwave lithotripsy for renal calculus (06/07/2018), Cystoscopic removal of ureteric stent (01/10/2017), Cystoscopy and retrograde pyelography (12/05/2016), ysto, right RGP, right ureteroscopy, laser ablation large distal ureteral calculus, basket extraction, JJ ureteral stent placemen t under fluoroscopic guidance (06/23/2016), Cystoscopy, Right RGP, Right Ureteroscopy with stone basket extraction (12/02/2015), ulstrasound (12/02/2015), TURP - Transurethral resection of prostate (11/15/2007), Cystoscopy (11/05/2007), Cystoscopy (03/15/2001), Amputation of toe, back epidurals procdures x 8, Cardiac catheterization, combined right and left heart, Colonoscopy, CTR - Carpal tunnel release, Heel spur....., History of tonsillectomy, Placement of stent in cardiac conduit. Discharge Vitals Heart Rate (Peripheral) 56 Height 171 cm Height 67 in Weight 122 kg Weight 268.4 lb BMI 41.72 What to do next Scheduled Follow-Up Appointments Monday 8:45 AM EDT With: Shawnee SCHUSTER, Kaleb Bee Where: [facility] Monday 2:20 PM EDT With: Everett Miner MD Where: [facility] Invalid Interpretation Code [address] [facility], [address] [place] [address]- \.br \ Monday 9:30 AM EDT \.br\ With:\.br\ Where: [facility] CMPon 05-10-2023 Albumin [Mass/Vol] 4.0 g/dL Normal 3.3-5.0 [facility] Comment on above: Performed By: #### 2 [id number], [id number], [id number] ####[facility] [address] [place] [address] Albumin/Globulin (S) [Mass conc ratio] 1.2 Normal 1.1-2.2 [facility] Comment on above: Performed By: #### 2 349763, [id number], [id number] ####[facility] [address] [place] [address] ALP [Catalytic activity/Vol] 66 Int._Unit/L Normal 21-98 [facility] Comment on above: Performed By: #### 2 [id number], [id number], [id number] ####[facility] [address] [place] [address] ALT No additional P-5'-P [Catalytic activity/Vol] 25 Int._Unit/L Normal 6-46 [facility] Comment on above: Performed By: #### 2 347343, [id number], [id number] ####[facility] [address] [place] [address] Anion gap [Moles/Vol] 11 mmol/L Normal 6-16 [facility] Comment on above: Performed By: #### 2 516713, 1141677, [id number] ####[facility] [address] [place] [address] AST [Catalytic activity/Vol] 26 Int._Unit/L Normal 5-43 [facility] Comment on above: Performed By: #### 2 802037, 7184878, [id number] ####[place] [address] [place] [address] Bilirubin [Mass/Vol] 0.3 mg/dL Normal 0.0-1.1 [facility] Comment on above: Performed By: #### 2 116656, [id number], [id number] ####[facility] [address] [place] [address] Calcium [Mass/Vol] 9.2 mg/dL Normal 8.9-11.1 [facility] Comment on above: Performed By: #### 2 685684, 7336770, [id number] ####[facility] [address] [place] [address] Chloride [Moles/Vol] 107 mmol/L Normal 101-111 [facility] Comment on above: Performed By: #### 2 217017, 3063545, [id number] ####[facility] [address] [place] [address] CO2 [Moles/Vol] 23 mmol/L Normal 21-31 [facility] Comment on above: Performed By: #### 2 385123, 4740062, [id number] ####[facility] [address] [place] [address] Creatinine [Mass/Vol] 1.3 mg/dL Normal 0.5-1.3 [facility] Comment on above: Performed By: #### 2 901354, 2960128, [id number] ####[facility] [address] [place] [address] Globulin (S) [Mass/Vol] 3.2 g/dL Normal 1.4-4.0 [facility] Comment on above: Performed By: #### 2 438425, 4651301, [id number] ####[facility] [address] [place] [address] Glucose [Mass/Vol] 137 mg/dL Normal 55-199 [facility] Comment on above: Result Comment: If t his glucose result represents a fasting glucose, interpretation should refer to the following reference range: 55-99 mg/dL Performed By: #### 2 359508, [id number], [id number] ####[facility] [address] [place] [address] Potassium [Moles/Vol] 4.0 mmol/L Normal 3.5-5.3 [facility] Comment on above: Performed By: #### 2 758717, 0849161, 02989583 ####[facility] [address] [place] [address] Protein [Mass/Vol] 7.2 g/dL Normal 6.0-7.8 [facility] Comment on above: Performed By: #### 2 [id number], [id number], [id number] ####[facility] [address] [place] [address] Sodium [Moles/Vol] 137 mmol/L Normal 135-145 [facility] Comment on above: Performed By: #### 2 [id number], [id number], [id number] ####[facility] [address] [place] [address] Urea nitrogen [Mass/Vol] 32 mg/dL High 5-21 [facility] Comment on above: Performed By: #### 2 [id number], [id number], [id number] ####[facility] [address] [facility] [place] [address] Urea nitrogen/Creatinin e [Mass ratio] 25 No Units High 10-20 [facility] Comment on above: Performed By: #### 2 [id number], [id number], [id number] ####[facility] [address] [facility] [place] [address] Lipid Panelon 05-10-2023 Cholesterol [Mass/Vol] 129 mg/dL Normal 120-200 [facility] Comment on above: Performed By: #### 2 [id number], [id number], [id number] ####[facility] [address] [place] [address] Cholesterol in HDL [Mass/Vol] 34 mg/dL Invalid Interpretation Code [facility] Comment on above: Result Comment: HDL > or equal to 60 mg/dL: Low cardiovascular risk HDL < 40 mg/dL : High cardiovascular risk Performed By: #### 2 [id number], [id number], [id number] ####[facility] [address] [facility] [place] [address] Cholesterol in LDL [Mass/Vol] 63 mg/dL Normal <=129 [facility] Comment on above: Performed By: #### 2 135279, [id number], [id number] ####[facility] [address] [place] [address] Cholesterol in VLDL [Mass/Vol] 33 mg/dL Normal 7-40 [facility] Comment on above: Performed By: #### 2 [id number], [id number], [id number] ####[facility] [address] [facility] [place] [address] Triglyceride [Mass/Vol] 164 mg/dL High <=149 [facility] Comment on above: Performed By: #### 2 [id number], [id number], [id number] ####[facility] [address] [facility] [place] [address] Patient Educationon 05-10-20 23 Patient Education Caregiving Fall Prevention in the Home, Adult Falls can cause injuries and affect people of all ages. There are many simple things that you can do to make your home safe and to help prevent falls. Ask for help when making these changes, if needed. What actions can I take to prevent falls? General instructions ? Use good lighting in all rooms. Replace any light bulbs that burn out, turn on lights if it is dark, and use night-lights. ? Place frequently used items in djpx-no-mbjch places. Lower the shelves around your home if necessary. ? Set up furniture so that there are clear paths around it. Avoid moving your furniture around. ? Remove throw rugs and other tripping hazards from the floor. ? Avoid walking on wet floors. ? Fix any uneven floor surfaces. ? Add color or contrast paint or tape to grab bars and handrails in your home. Place contrasting color strips on the first and last steps of staircases. ? When you use a stepladder, make sure that it is completely opened and that the sides and supports are firmly locked. Have someone hold the ladder while you are using it. Do not climb a closed stepladder. ? Know where your pets are when moving through your home. What can I do in the bathroom? ? Keep the floor dry. Immediately clean up any water that is on the floor. ? Remove soap buildup in the tub or shower regularly. ? Use nonskid mats or decals on the floor of the tub or shower. ? Attach bath mats securely with double-sided, nonslip rug tape. ? If you need to sit down while you are in the shower, use a plastic, nonslip stool. ? Install grab bars by the toilet and in the tub and shower. Do not use towel bars as grab bars. What can I do in the bedroom? ? Make sure that a bedside light is easy to reach. ? Do not use oversized bedding that reaches the floor. ? Have a firm chair that has side arms to use for getting dressed. What can I do in the kitchen? ? Clean up any spills right away. ? If you need to reach for something above you, use a sturdy step stool that has a grab bar. ? Keep electrical cables out of the way. ? Do not use floor lithuanian or wax that makes floors slippery. If you must use wax, make sure that it is non-skid floor wax. What can I do with my stairs? ? Do not leave any items on the stairs. ? Make sure that you have a light switch at the top and the bottom of the stairs. Have them installed if you do not have them. ? Make sure that there are handrails on both sides of the stairs. Fix handrails that are broken or loose. Make sure that handrails are as long as the staircases. ? Install non-slip stair treads on all stairs in your home. ? Avoid having throw rugs at the top or bottom of stairs, or secure the rugs with carpet tape to prevent them from moving. ? Choose a carpet design that does not hide the edge of steps on the stairs. ? Check any carpeting to make sure that it is firmly attached to the stairs. Fix any carpet that is loose or worn. What can I do on the outside of my home? ? Use bright outdoor lighting. ? Regularly repair the edges of walkways and driveways and fix any cracks. ? Remove high doorway thresholds. ? Trim any shrubbery on the main path into your home. ? Regularly check that handrails are securely fastened and in good repair. Both sides of all steps should have handrails. ? Install guardrails along the edges of any raised decks or porches. ? Clear walkways of debris and clutter, including tools and rocks. ? Have leaves, snow, and ice cleared regularly. ? Use sand or salt on walkways during winter months. ? In the garage, clean up any spills right away, including grease or oil spills. What other actions can I take? ? Wear closed-toe shoes that fit well and support your feet. Wear shoes that have rubber soles or low heels. ? Use mobility aids as needed, such as canes, walkers, scooters, and crutches. ? Review your medicines with your health care provider. Some medicines can cause dizziness or changes in blood pressure, which increase your risk of falling. Talk with your health care provider about other ways that you can decrease your risk of falls. This may include working with a physical therapist or sharepoint trainer to improve your strength, balance, and endurance. Where to find more information ? Centers for Disease Control and Prevention, STEAD[place]: www.cdc.gov ? National [place] [employer] on Aging: www.keena.nih.gov Contact a health care provider if: ? You are afraid of falling at home. ? You feel weak, drowsy, or dizzy at home. ? You fall at home. Summary ? There are many simple things that you can do to make your home safe and to help prevent falls. ? Ways to make your home safe include removing tripping hazards and installing grab bars in the bathroom. ? Ask for help when making these changes in your home. This information is not intended to replace advice given to you by your health ca (more content not included)... Normal [facility] Screenson 05-10-2023 Screens [id number] D:127 Normal [facility] U Microalbon 05-10-2023 Albumin DL <= 20 mg/L (U) [Mass/Vol] 57.4 microgram/mL High 0.0-19.0 [facility] Comment on above: Performed By: #### 1 [id number], [id number] #### [facility] [address] [place] [address] U Protein/Creat Ratioon Albumin Elph (U) [Mass fraction] 20.8 mg/dL Invalid Interpretation Code [facility] Comment on above: Result Comment: The reference range and other method performance specifications have not been established for this test; results should be integrated into the clinical context for interpretation. Performed By: #### 1 [id number], [id number] ####[facility] [address] [place] [address] Creatinine (U) [Mass/Vol] 130.1 mg/dL Invalid Interpretation Code [facility] Comment on above: Result Comment: The reference range and other method performance specifications have not been established for this test; results should be integrated into the clinical context for interpretation. Performed By: #### 1 [id number], [id number] ####[facility] [address] [place] [address] U Prot/Creat Ratio 159.90 mg/gm Cr Normal .00-200.00 [facility] Comment on above: Performed By: #### 1 [id number], [id number] ####[facility] [address] [place] [address] eGFRon 05-10-2023 GFR/1.73 sq M.predicted among non-blacks MDRD (S/P/Bld) [Vol rate/Area] 58 mL/min/1.73 m2 Low >=59 [facility] Comment on above: Order Comment: Order added by Discern Expert. Result Comment: Pocket Secretary Assembler hai kidney disease could be indicated at eGFR's of less than 60 mL/min/1.73m2. Kidney failure is indicated at less than 15 mL/min/1.73m2. Performed By: #### 2 [id number], [id number], [id number] ####[facility] [address] [place] [address] Family Medicine Office/Clini c Noteon 05-01-2023 Family Medicine Office/Clinic Note Chief Complaint discuss issues with right toe HPI Staff Dong is a 72 year old male patient presenting to the office to establish care. Establish care: History: DM. ASCVD,neuropathy, htn, hyperlipidemia, medeiros, sleep apnea spinal stenosis, vit d defic. OA, psoriasis CKD stage 3 Last provider: Alex Benitez recent labs: 11/2022 Health Maintenance UTD: Colonoscopy: 1.5-2 yrs ago, few polyps PSA: due covid: UTD recent [id number] recent isabela-9 Acute: Current issues/complaints: discuss issues with his right toe History of Present Illness Dong Whitmore is a 72-year-old male who presents today for an evaluation. He has a toe issue. The patient states that his diabetes could be better. His average blood sugar was 132 mg/dL. His last A1c was 7.6 percent 2 months ago[address] He sees Dr. Tita Tam. He has a history of amputations. His middle toe is bent, and he has nerve damage in that toe. He has been to several doctors and was told that they cannot do anything about it. His little toe controls his life. Amputation has been discussed several times, but they do not want to do it. He was told that his toe is taking the place of the big toe. He is willing to try anything. When he first came into the office, it hurt like hell. If he stands up and puts pressure on it, it alleviates the pain. Sometimes he cannot sit down. He has been to Dr. Aguilar, his regular radiator core tester. He thinks not by taking the toe off, but by taking it back to the first joint, they might be able to solve this. He is a little leery of that. He was diagnosed with spinal stenosis a long time ago. He went to pain management and was given 9 injections, but it did not work. He has been living with this back problem for most of his life. He sees a coroner transport technician. He last saw them a couple of months ago. They changed his heart medication. He has 4 stents in him. They put them in 2012. He has not had any problems. Earlier this year, he went back to him, and he told him that it has been 10 years since he has had any trouble. They did a stress test and an echo. He has never had a heart attack. He carries nitroglycerin with him all the time, but he has never had to use one. It has been at least 15 years since he has carried them. His aircraft structural fitter ordered his lab work. He is supposed to get his wellness done next month. He states that during the winter his had lymphedema in both of her legs. They got that fixed. A month later, he came down with it. His leg only swelled up and turned red. He went to therapy. They got it taken care of, but it is not healing. He has a big sore. It comes and goes. One has been a week or so. Dr. Aguilar checked him to see if he had a blood clot. It turned out okay. They started treating him like they did his for lymphedema. That seemed to make the swelling go down. His skin has been really scaly and right now it is raw. Review of Systems PHQ Score Initial Depression Screen Score: 3 Physical Exam Vitals & Measurements T: 36.9 ?C(Oral) HR: 84(Peripheral) RR: 16 BP: 144/68 SpO2: 96% HT: 67 in HT: 170 cm WT: 124.7 kg WT: 274.34 lb BMI: 43.15 General: alert, no acute distress, morbidly obese Cardiovascular: regular rate and rhythm, normal peripheral perfusion Respiratory: diminished breath sounds bilaterally Extremities: no deformity, no trauma, Stasis ulcer noted on the right lower extremity with chronic stasis pigment changes, patient has an amputation of his first and second digit on the right with abnormal changes to the first joint of the third toe Neurological: oriented x 4, LOC appropriate for age, CN II-XII intact, motor strength equal & normal bilaterally, speech normal Assessment/Plan Total time spent preparing for the encounter, evaluating and assessing the patient, documenting the visit, and ordering appropriate follow-up work was 60 minutes. 1. PVD (peripheral vascular disease) (I73.9: Peripheral vascular disease, unspecified) Encouraged the patient to follow up with cardiology and vascular as needed for the concerns of the stasis dermatitis and to see if there is anything further, they can do. 2. Primary hypertension (I10: Essential (primary) hypertension) Patient is slightly elevated at this time. We will see the patient back in 3 months to recheck. Patient has usually been very well controlled other than today. 3. Anxiety (F41.9: Anxiety disorder, unspecified) Patient is on medication. I believe the patient is still rather anxious, but we will continue to monitor going forward. We will adjust medication as needed. 4. Type 2 diabetes mellitus with hyperglycemia, without long-term current use of insulin (E11.65: Type 2 diabetes mellitus with hyperglycemia) Last A1c was 7.6 percent. Concern for this. This may be one of the reasons why the patient is struggling with wound healing. At this time, the patient should work to get his blood sugars under control with his aircraft structural fitter. 5. Chronic bilateral low back pain without sciatica (M54. (more content not included)... Normal [facility] Comment on above: Result Comment: Elec tronically Signed By: Everett Miner MD\.br\Date and Time Signed: 05/01/23 11:27 EDT\.br\Electronically Co-Signed By: Dahiana Berg.br\Date and Time Co-Signed: 04/27/23 17:48 EDT Physician Referralon 023 Physician Referral [id number] 052 [id number]#1.00 CD:127 Normal [facility] Physician Referral [id number] 052 [id number] CD:127 Normal [facility] Ambulatory Visit Summaryon 0 04-27-2023 Ambulatory Visit Summary DONG WHITMORE :1950 Visit Date:04/27/2023 Ambulatory Visit Instructions Your Diagnosis PVD (peripheral vascular disease) Primary hypertension Anxiety Your Care Team Attending Physician - Everett Miner MD Primary Care Physician - Everett Miner MD This Is Your Medications List acarbose (acarbose 25 mg oral tablet) aspirin (aspirin 81 mg oral tablet) buPROPion (Wellbutrin) losartan (losartan 50 mg Tab) metoprolol (metoprolol 50 mg ER Tab) multivitamin with minerals (Multivitamin, Therapeutic w/ Minerals) nitroglycerin (Nitro 0.4 mg Tab) omega-3 polyunsaturated fatty acids (Fish Oil 1200 mg oral capsule) simvastatin (simvastatin 40 mg Tab) sitagliptin (Januvia 100 mg Tab) sodium bicarbonate (sodium bicarbonate 650 mg Tab) tizanidine venlafaxine (venlafaxine 37.5 mg Tab) Procedures Performed TOE AMPUTATION (11/16/2018), ESWL - Extracorporeal shockwave lithotripsy for renal calculus (06/07/2018), Cystoscopic removal of ureteric stent (01/10/2017), Cystoscopy and retrograde pyelography (12/05/2016), ysto, right RGP, right ureteroscopy, laser ablation large distal ureteral calculus, basket extraction, JJ ureteral stent placemen t under fluoroscopic guidance (06/23/2016), Cystoscopy, Right RGP, Right Ureteroscopy with stone basket extraction (12/02/2015), ulstrasound (12/02/2015), TURP - Transurethral resection of prostate (11/15/2007), Cystoscopy (11/05/2007), Cystoscopy (03/15/2001), Amputation of toe, back epidurals procdures x 8, Cardiac catheterization, combined right and left heart, Colonoscopy, CTR - Carpal tunnel release, Heel spur....., History of tonsillectomy, Placement of stent in cardiac conduit. Discharge Vitals Temperature (Oral) 36.9 ?C Heart Rate (Peripheral) 84 Respiratory Rate 16 Blood Pressure 144/68 Height 170 cm Height 67 in Weight 124.7 kg Weight 274.34 lb BMI 43.15 What to do next Scheduled Follow-Up Appointments Monday 9:20 AM EDT With: Where: [facility] Invalid Interpretation Code [address] [place] [address]- \.br \ Monday 2:20 PM EDT \.br\ With: Kristofer SCHUSTER, Everett Bee\.br\ Where: [facility] Ambulatory Visit Summaryon 0 03-14-2023 Ambulatory Visit Summary DONG WHITMORE :1950 Visit Date:03/14/2023 Ambulatory Visit Instructions Your Diagnosis BMI 40.0-44.9, adult Non-smoker Your Care Team Attending Physician - Nanette Do Primary Care Physician - Nanette Do This Is Your Medications List acarbose (acarbose 25 mg oral tablet) aspirin aspirin (aspirin 81 mg oral tablet) buPROPion (Wellbutrin) losartan (losartan 50 mg Tab) metoprolol (metoprolol 50 mg ER Tab) multivitamin with minerals (Multivitamin, Therapeutic w/ Minerals) nitroglycerin (Nitro 0.4 mg Tab) omega-3 polyunsaturated fatty acids (Fish Oil 1200 mg oral capsule) simvastatin (simvastatin 40 mg Tab) sitagliptin (Januvia 100 mg Tab) sodium bicarbonate (sodium bicarbonate 650 mg Tab) tizanidine tramadol (traMADOL 50 mg Tab) venlafaxine (venlafaxine 37.5 mg Cap-ER) venlafaxine (venlafaxine 37.5 mg Tab) [Image Removed: STOP]Stop taking these medications canagliflozin (Invokana 100 mg oral tablet) Procedures Performed TOE AMPUTATION (11/16/2018), ESWL - Extracorporeal shockwave lithotripsy for renal calculus (06/07/2018), Cystoscopic removal of ureteric stent (01/10/2017), Cystoscopy and retrograde pyelography (12/05/2016), ysto, right RGP, right ureteroscopy, laser ablation large distal ureteral calculus, basket extraction, JJ ureteral stent placemen t under fluoroscopic guidance (06/23/2016), Cystoscopy, Right RGP, Right Ureteroscopy with stone basket extraction (12/02/2015), ulstrasound (12/02/2015), TURP - Transurethral resection of prostate (11/15/2007), Cystoscopy (11/05/2007), Cystoscopy (03/15/2001), Amputation of toe, back epidurals procdures x 8, Cardiac catheterization, combined right and left heart, CTR - Carpal tunnel release, Heel spur....., History of tonsillectomy, Placement of stent in cardiac conduit. Discharge Vitals Heart Rate (Peripheral) 61 Blood Pressure 124/80 Height 170 cm Height 67 in Weight 121.8 kg Weight 267.96 lb BMI 42.15 What to do next Scheduled Follow-Up Appointments Monday 9:20 AM EDT With: Where: [facility] Invalid Interpretation Code [address] [place] [address]- \.br \ Monday 8:15 AM EST \.br\ With: LATRICIA SCHUSTER, Araceli Treadwell\.br\ Where: [facility] Family Medicine Office/Clini c Noteon 03-14-2023 Family Medicine Office/Clinic Note Chief Complaint pt here to establish care HPI Staff establish care Establish Care: History: HTN, Diabetes Last provider: Dr Johnson Any recent labs: 11/08/2022 weeks ago [place] Specialist: Labor Training Manager Melissa Lopez in [place], radiator core tester Health Maintenance UTD: Colonoscopy: 1.5- 2 years ago few polyps other villarreal normal PSA: 04/07/22 Acute: Current issues/complaints: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 Having problems sleeping hurts the worst at night at time ca be 10/10. Event Decorator And Designer has told him there isn't anything they can do. History of Present Illness pt presents to establish care is in need of refills on venlafaxiine Review of Systems PHQ Score Initial Depression Screen Score: 0 ROS - Provider Constitutional: no fever, no chills, no sweats, no weakness. Skin: no Jaundice, no rash, no lesions, no petechiae. ENMT: no ear pain, no sore throat, no congestion, no hoarseness,no swelling of lymph nodes Respiratory: no shortness of breath, no cough, no orthopnea, no wheezing. Cardiovascular: no chest pain, no palpitations, no edema. Gastrointestinal: no nausea, no vomiting, no diarrhea, no GI bleeding. Genitourinary: no dysuria, no hematuria, no discharge, no pain. Musculoskeletal: yes back pain, no trauma. right foot middle toe joint pain Neurologic: no headache, no dizziness, no numbness, no weakness. Psychiatric: noDepressionno Anxietyno sleeping problems, no Suicidal thoughts or ideationsno mood swings Additional ROS info: Except as noted in the above Review of Systems and in the History of Present Illness all other systems have been reviewed and are negative or noncontributory. Physical Exam Vitals & Measurements HR: 61(Peripheral) BP: 124/80 SpO2: 98% HT: 67 in HT: 170 cm WT: 121.8 kg WT: 267.96 lb BMI: 42.15 General: alert, no acute distress Skin: warm, dry Head: no trauma, normocephalic Neck: Trachea midline, thyroid not enlarged Eye: normal conjunctiva, sclera clear ENMT: oral mucosa moist, yes Cardiovascular: regular rate and rhythm, normal Respiratory: respirations non labored Chest wall: no deformity. Gastrointestinal: soft, non distended, no tenderness Back: No tenderness Extremities: no edema, no wound Neurological: awake, alert, oriented, speech normal Psychiatric: cooperative, affect appropriate for age Assessment/Plan 1. Wellness examination (Z00.00: Encounter for general adult medical examination without abnormal findings) pt presents today to establish care. is in need of refills. Had lab work 11/08/2022. Is up to date on colon cancer screening. pt c/o right foot middle toe pain that is keeping him up at night. pt has been to several podiatrists and neurologist and feels no one wants to help him with this pain. offered gabapentin but pt states that does not help. encouraged him to discuss with Dr. Aguilar to let him know the pain is starting to affect his ADL's. Dr. Bennett informed him it was not the best idea to remove the toe because he has already had the first two toes removed 2. Anxiety and depression (F41.9: Anxiety disorder, unspecified) venlafaxine refilled 3. Prostate cancer screening (Z12.5: Encounter for screening for malignant neoplasm of prostate) Discussed that he did not need PSA drawn after 69 but he would like to check it again this year 4. Hypertension (I10: Essential (primary) hypertension) coroner transport technician just increased his meds 5. Type 2 diabetes with nephropathy (E11.21: Type 2 diabetes mellitus with diabetic nephropathy) see aircraft structural fitter every 3 months 6. Hyperlipidemia (E78.5: Hyperlipidemia, unspecified) Will drawn labs end of April beginning of May at medicare wellness visit 7. BMI 40.0-44.9, adult (Z68.41: Body mass index [BMI] 40.0-44.9, adult) BMI education complete Ordered: Body Mass Index (BMI) documented 3008F Current tobacco non-user 1036F Depression Screening Negative 3352F Patient screen for fall risk: no falls in last year or 1 fall with no injury in last year 1101F 8. Non-smoker (Z78.9: Other specified health status) continue not smoking Ordered: Body Mass Index (BMI) documented 3008F Current tobacco non-user 1036F Depression Screening Negative 3352F Patient screen for fall risk: no falls in last year or 1 fall with no injury in last year 1101F Orders: venlafaxine, 37.5 mg = 1 tab(s), Oral, BID, # 180 tab(s), Refills(s) 3, Pharmacy: [facility]/pharmacy #[id number], 170, cm, 03/14/23 9:16:00 EDT, Height/Length Dosing, 121.8, kg, 03/14/23 9:16:00 EDT, Weight Dosing Follow-up No qualifying data available Problem List/Past Medical History Ongoing Anticoagulated 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 Normal [facility] Comment on above: Result Comment: Elec tronically Signed By: Nanette Do\Date and Time Signed: 03/14/23 11:03 EDT 36on 03-08-2023 36 Please let him know his kidney function is stable. Continue current medications. Follow-up as planned in 3 months. Thank you [facility] A1C HEMOGLOBINon 02-14-2023 HbA1c (Bld) [Mass fraction] 7.6 % NuFlick Other Glucose - FINGER STICKon Glucose [Mass/Vol] 215 mg/dL [employer] Other HbA1c (Bld) [Mass fraction]o n 02-14-2023 A1C HEMOGLOBIN [facility] [employer] Other 36on 02-13-2023 36 BP higher than goal of <130/90. Recommend increasing his losartan to 75mg daily (1.5 tablets of his current Rx) with follow-up BMP in 2 weeks. Thanks [facility] 36on 01-23-2023 36 . [facility] Office Visiton 01-23-2023 Follow-up visit [id number] Carlos Whitmore 1950 M Date Provider Department Center 01/23/2023 [facility] GRIFFIN [facility] Family History Problem Relation Age of Onset Coronary artery disease Other Diabetes Other Family Status - Relation Status Age at Other Level of Service:83307 [place] OFFICE/OUTPATIENT ESTABLISHED MOD MDM 30-39 MIN Reason for Visit and Comments: Cardiac Stress Test [489] [facility] Telephoneon 01-23-2023 Telephone [id number] Carlos Whitmore 1950 M Date Provider Department Center 01/23/2023 PAPITO BROWN Family History Problem Relation Age of Onset Coronary artery disease Other Diabetes Other Family Status - Relation Status Age at Other [facility] 36on 01-06-2023 36 Patient stopped by t he office during lunch hour and spoke with Yarelis from the [facility]. He wanted stress and echo results, which he said was supposed to have been read Monday, 01/02. I called Caterina Johnson CNP to ask about results after putting them in patient's chart. She said tests look good but he needs strict BP control given LVH on echo. I then tried to call patient and got his VM. I did leave him a message, making him aware the stress test was actually supposed to be read on Monday, 01/04, which it was. Told him I wasn't sure where he heard Monday from. I did ask him to return my call if he needs RX for BP cuff. Normal [facility] Telephoneon 01-06-2023 Telephone [id number] Carlos Whitmore 1950 M Date Provider Department Center 01/06/2023 [facility] Family History Problem Relation Age of Onset Coronary artery disease Other Diabetes Other Family Status - Relation Status Age at Other Normal [facility] ECHOCARDIO M/2D COMPLETEon 0 12-30-2022 ECHOCARDIO M/2D COMPLETE Patient: DONG WHITMORE. Exam Date: 12/30/2022 : 1950 Gender:M Ordering : MARY JOHNSON [facility] Admission #: [id number] Family : Order #: [id number] CLICK HERE TO VIEW EXAM ECHOCARDIOGRAM REPORT PROCEDURE: CARDIO PULMONARY ECHOCARDIO M/2D COMP INDICATIONS: Dyspnea on exertion, coronary artery disease, hypertension, diabetes COMPARISON: None. DESCRIPTION: COMPLETE ECHOCARDIOGRAM Real-time transthoracic echocardiography with 2D, M-mode, spectral and color flow Doppler performed. QUALITY: Technical quality was adequate. LEFT VENTRICLE: Normal chamber size. Moderate concentric left ventricular hypertrophy. LV EF: Normal left ventricular ejection fraction, (>55%). DIASTOLIC: Normal diastolic function. ATRIAL SEPTUM: LEFT ATRIUM: Normal chamber size. RIGHT ATRIUM: Normal chamber size. RIGHT VENTRICLE: Normal chamber size. Normal right ventricular systolic function. TRICUSPID VALVE: Normal mobility and thickness. No stenosis with trivial regurgitation. MITRAL VALVE: Normal mobility and thickness. No evidence of mitral valve stenosis. There is no mitral annular calcification. No mitral regurgitation. AORTIC VALVE: Normal trileaflet appearance. No visible sclerosis. Normal leaflet mobility. No evidence of aortic valve stenosis. No aortic regurgitation. AORTIC ROOT: Normal diameter and appearance. PULMONIC VALVE: Normal thickness and mobility. No stenosis. No regurgitation. PERICARDIUM: No evidence of pericardial effusion. IVC: Not well visualized. PLEURA: CONCLUSION: 1. Moderate concentric left ventricular hypertrophy. Normal ventricular systolic function. LVEF is 60%. 2. Normal diastolic function. 3. No significant valvular dysfunction. 4. No pericardial effusion. Adult Echocardiography Procedure Report Left Ventricle LVEDD (3.7 - 5.6 cm): 4.19 cm LVESD (2.2 - 4.0 cm): 2.93 cm LVIVS thickness (0.6 - 1.2 cm): 1.60 cm LVPW thickness (0.5 - 1.0 cm): 1.53 cm e': 0.09 m/s E - e': 7.76 LVOT Max Gradient: 2.39 mm[Hg] Peak Velocity (LVOT): 0.77 m/s LVOT Diameter 2.94 cm Left Ventricular Ejection Fraction: 60 % Left Atrium LA Volume Index (2D A2C): 56.81 ml, 56.81 ml Left Atrium Systolic Dimension: 4.38 cm Mitral Valve MV E to A Ratio: 1.01 Mitral Valve A-Wave Peak Velocity: 0.68 m/s Mitral Valve E-Wave Peak Velocity: 0.69 m/s Right Ventricle Aorta AO Root Diam: 3.75 cm Aortic Valve AoV Area (Peak Juvenal): 4.92 cm2, 4.92 cm2 Peak Velocity(Antegrade Flow): 1.06 m/s Peak Gradient(Antegrade Flow): 4.53 mm[Hg] Tricuspid Valve Peak Velocity: 0.64 m/s Pulmonic Valve Peak Velocity: 0.97 m/s, 1.08 m/s Peak Gradient: 3.79 mm[Hg], 4.63 mm[Hg] Right Atrium Dictated by: Jesus Thibodeaux M.D. on 12/30/2022 at 18:47 Approved by: Jesus Thibodeaux M.D. on 12/30/2022 at 18:49 Normal [facility] NM STRESS/REST MULTIon 12-29 NM STRESS/REST MULTI Patient: DONG WHITMORE Exam Date: 12/29/2022 : 1950 Gender:M Ordering : M[facility] JOHNSON [facility] Admission #: [id number] Family : Order #: [id number] CLICK HERE TO VIEW EXAM RADIOLOGY REPORT PROCEDURE: RADIONUCLIDE IMAGING STRESS/REST MULTI COMPARISON: None. INDICATIONS: Dyspnea on exertion TECHNIQUE: Exam Description: Stress/Rest two day protocol gated SPECT Rest Imagin.9 mCi Tc-99m Cardiolite IV on 12/30/2022 Stress Imaging 26.3 mCi Tc-99m Cardiolite IV on 12/29/2022 Exercise Protocol: 0.4 mg Lexiscan given IV Heart Rate (bpm): Rest: 72 Max: 92 PMHR: 62 Blood Pressure: Rest: 138/70 Max: 138/70 Symptoms: Rest and peak stress ECG findings were pending and the exercise portion of the study was pending per attending physician Dr. VASQUEZ . For more details please see separate cardiac stress test report. FINDINGS: QUALITY OF STUDY: Excellent. PERFUSION DEFECT: LOCATION: Basal inferior. Mid-inferior. Apical inferior. SIZE: Medium (3-4 segments). SEVERITY: Mild. TYPE: Persistent. WALL MOTION: Normal. LV SIZE: Enlarged; EDV 148 mL. TID / TCD: None; 1.1 LVEF: Normal. Calculated EF 60%. SUMMARY: Myocardial perfusion imaging study has ABNORMAL findings. CONCLUSION: 1. No acute or reversible ischemia. 2. Mild fixed inferior wall perfusion defect versus diaphragm attenuation artifact. 3. Enlarged left ventricle, 148 mL. 4. Normal wall motion and ejection fraction. Dictated by: Brittny Morales M.D. on 12/30/2022 at 09:38 Approved by: Brittny Morales M.D. on 12/30/2022 at 09:41 Normal [facility] US MAMI DOP LEG RTon 12-09-19 23 US MAMI DOP LEG RT EXAMINATION: US MAMI DOP LEG RT HISTORY: Deep venous thrombosis of lower extremity (disorder) COMPARISON: No relevant comparison available. TECHNIQUE: Grayscale, color and Doppler ultrasound FINDINGS: Region: Right leg Thrombus: None Flow: Normal Augmentation: Normal Compressibility: Normal Other: Subcutaneous edema, moderate IMPRESSION: No deep or superficial vein thrombus identified in the right leg *Exam performed in accordance with [facility] practice guidelines- Peripheral venous ultrasound, January 02, 2010. Electronically authenticated by: MORGAN ROJO Date: 2022-12-08 16:15 Normal [facility] Office Visiton 11-25-2022 Follow-up visit [id number] Carlos Whitmore 1950 M Date Provider Department Center 11/25/2022 MARY GRIFFIN [facility] Family History Problem Relation Age of Onset Coronary artery disease Other Diabetes Other Family Status - Relation Status Age at Other Level of Service:42216 [place] OFFICE/OUTPATIENT ESTABLISHED HIGH MDM 40-54 MIN Reason for Visit and Comments: Coronary Artery Disease [187] Hypertension [688565] Hyperlipidemia [182] Normal [facility] TSHon 11-25-2022 TSH 2.370 uIU/mL Normal 0.358-3.740 [facility] Comment on above: Performed By: #### T SH #### [facility] [address] [place] [address] Dr. Eli Jarvis BNPon 11-08-2022 Natriuretic peptide B (Bld) [Mass/Vol] 122.0 pg/mL Normal <=900.0 [facility] Comment on above: Performed By: #### C MP, BNP #### [facility] [address] [place] [address] Dr. Eli Jarvis CBC AUTO DIFFon 11-08-2022 BASO # 0.1 103/ul Normal 0.0-0.1 [facility] Comment on above: Performed By: #### C BC ####[facility] [address] [place] [address]Dr. Eli Jarvis Basophils/100 WBC (Bld) 0.7 % Normal 0.2-2.0 [facility] Comment on above: Performed By: #### C BC ####[facility] [address] [place] [address]DrSuzie Jarvis EO # 0.2 103/ul Normal 0.0-0.7 [facility] Comment on above: Performed By: #### C BC ####[facility] [address] [place] [address]DrSuzie Jarvis Eosinophils/100 WBC (Bld) 3.5 % Normal 0.9-7.0 [facility] Comment on above: Performed By: #### C BC ####[facility] [address] [place] [id number]. Eli Jarvis Erythrocyte distribution width (RBC) [Ratio] 13.8 % Normal 11.0-15.0 [facility] Comment on above: Performed By: #### C BC ####[facility] [address] [place] [id number]. Eli Jarvis Hematocrit (Bld) [Volume fraction] 42.0 % Normal 42.0-54.0 [facility] Comment on above: Performed By: #### C BC ####[facility] [address] [place], [place] [address]Dr. Eli Jarvis Hemoglobin (Bld) [Mass/Vol] 13.8 g/dL Critically low 14.0-18.0 [facility] Comment on above: Performed By: #### C BC ####[facility] [address] [place], [place] [address]Dr. Eli Matheus IG # 0.03 10e3/ul Normal 0.00-0.03 [facility] Comment on above: Performed By: #### C BC ####[facility] [address] [place], [place] [address]Dr. Eli Jarvis IG % 0.4 % Normal 0.0-0.5 [facility] Comment on above: Performed By: #### C BC ####[facility] [address] [place], [place] [address]Dr. Eli Jarvis LYMPH # 1.3 103/ul Normal 1.2-3.8 [facility] Comment on above: Performed By: #### C BC ####[facility] [address] [place], [place] [address]Dr. Sparklealine Jarvis Lymphocytes/100 WBC (Bld) 18.8 % Critically low 20.5-60.0 [facility] Comment on above: Performed By: #### C BC ####[facility] [address] [place], [place] [address]Dr. Sparklealine Jarvis MANUAL DIFF REQ NO Normal [facility] Comment on above: Performed By: #### C BC ####[facility] [address] [place] [address]Dr. Eli Jarvis MCH (RBC) [Entitic mass] 27.8 pg Normal 25.9-34.0 [facility] Comment on above: Performed By: #### C BC ####[facility] [address] [place] [address]Dr. Eli Jarvis MCHC (RBC) [Mass/Vol] 32.9 g/dL Normal 29.9-35.2 [facility] Comment on above: Performed By: #### C BC ####[facility] [address] [place], [place] [address]Dr. Eli Jarvis MCV (RBC) [Entitic vol] 84.7 fL Normal 80.0-94.0 [facility] Comment on above: Performed By: #### C BC ####[facility] [address] [place], [place] [address]Dr. Eli Matheus MONO # 0.6 103/ul Normal 0.3-0.8 [facility] Comment on above: Performed By: #### C BC ####[facility] [address] [place], [place] [address]Dr. Eli Matheus Monocytes/100 WBC (Bld) 8.5 % Normal 1.7-12.0 [facility] Comment on above: Performed By: #### C BC ####[facility] [address] [place], [place] [address]Dr. Eli Jarvis NEUT # 4.7 103/ul Normal 1.4-6.5 [facility] Comment on above: Performed By: #### C BC ####[facility] [address] [place], [place] [address]Dr. Eli Matheus Neutrophils/100 WBC (Bld) 68.1 % Normal 43.0-75.0 [facility] Comment on above: Performed By: #### C BC ####[facility] [address] [place], [place] [address]Dr. Eli Matheus Platelet mean volume (Bld) [Entitic vol] 10.3 fL Normal 9.5-13.5 [facility] Comment on above: Performed By: #### C BC ####[facility] [address] [place], [place] [address]Vn. Eli Jarvis PLT 189 103/ul Normal 150-450 [facility] Comment on above: Performed By: #### C BC ####[facility] [address] [place] [id number]. Eli Jarvis RBC 4.96 106/ul Normal 4.70-6.10 [facility] Comment on above: Performed By: #### C BC ####[facility] [address] [place] [id number]. Eli Jarvis WBC 7.0 103/ul Normal 4.0-11.0 [facility] Comment on above: Performed By: #### C BC ####[facility] [address] [place] [address]DrSuzie Jarvis PROF 14(COMP METB)on 023 Albumin [Mass/Vol] 3.6 g/dL Normal 3.4-5.[address] [facility] Comment on above: Performed By: #### C MP, BNP #### [facility] [address] [place] [address] Dr. Eli Jarvis Albumin/Globulin [Mass ratio] 1.1 {ratio} Normal [facility] Comment on above: Performed By: #### C MP, BNP #### [facility] [address] [place] [address] [address] Eli Jarvis ALP [Catalytic activity/Vol] 90 U/L Normal 46-116 [facility] Comment on above: Performed By: #### C MP, BNP #### [facility] [address] [place] [address] [address] Eli Jarvis ALT [Catalytic activity/Vol] 42 U/L Normal 16-63 [facility] Comment on above: Performed By: #### C MP, BNP #### [facility] [address] [address] [address] Eli Jarvis Anion gap [Moles/Vol] 13.5 mmol/L Normal [facility] Comment on above: Performed By: #### C MP, BNP #### [facility] [address] [address] [address] Eli Jarvis AST [Catalytic activity/Vol] 26 U/L Normal 15-37 [facility] Comment on above: Performed By: #### C MP, BNP #### [facility] [address] [place] [address] Dr. Eli Jarvis Bilirubin [Mass/Vol] 0.4 mg/dL Normal 0.2-1.0 [facility] Comment on above: Performed By: #### C MP, BNP #### [facility] [address] [place] [address] Dr. Eli Jarvis Calcium [Mass/Vol] 9.3 mg/dL Normal 8.5-10.[address] [facility] Comment on above: Performed By: #### C MP, BNP #### [facility] [address] [place] [address] Dr. Eli Jarvis Chloride [Moles/Vol] 104 mmol/L Normal 98-107 [facility] Comment on above: Performed By: #### C MP, BNP #### [facility] [address] [place] [address] Dr. Eli Jarvis CO2 [Moles/Vol] 25.7 mmol/L Normal 21.0-32.0 [facility] Comment on above: Performed By: #### C MP, BNP #### [facility] [address] [place] [address] Dr. Eli Jarvis Creatinine [Mass/Vol] 1.32 mg/dL Critically high 0.70-1.30 [facility] Comment on above: Performed By: #### C MP, BNP #### [facility] [address] [place] [address] Dr. Eli Jarvis EGFR-AF TUNISIAN >60 Normal >=60 [facility] Comment on above: Performed By: #### C MP, BNP #### [facility] [address] [place] [address] Dr. Eli Jarvis EGFR-NON AF TUNISIAN 53 mL/min/1.73m2 Critically low >=60 [facility] Comment on above: Performed By: #### C MP, BNP #### [facility] [address] [address] [address] Eli Jarvis Globulin (S) [Mass/Vol] 3.3 g/dL Normal [facility] Comment on above: Performed By: #### C MP, BNP #### [facility] [address] [address] [address] Eli Jarvis Glucose [Mass/Vol] 154 mg/dL Critically high 74-106 [facility] Comment on above: Performed By: #### C MP, BNP #### [facility] [address] [address] [address] Eli Jarvis Potassium [Moles/Vol] 4.2 mmol/L Normal 3.5-5.1 [facility] Comment on above: Performed By: #### C MP, BNP #### [facility] [address] [place] [address] Dr. Eli Jarvis Protein [Mass/Vol] 6.9 g/dL Normal 6.4-8.2 [facility] Comment on above: Performed By: #### C MP, BNP #### [facility] [address] [address] [address] Eli Jarvis Sodium [Moles/Vol] 139 mmol/L Normal 136-[address] [facility] Comment on above: Performed By: #### C MP, BNP #### [facility] [address] [place] [address] Dr. Eli Jarvis Urea nitrogen [Mass/Vol] 23.0 mg/dL Critically high 7.0-18.0 [facility] Comment on above: Performed By: #### C MP, BNP #### [facility] [address] [place] [address] Dr. Eli Jarvis Urea nitrogen/Creatinin e [Mass ratio] 17.4 mg/mg Normal [facility] Comment on above: Performed By: #### C MP, BNP #### [facility] [address] [place] [address] Dr. Eli Jarvis A1C HEMOGLOBINon 11-07-2022 HbA1c (Bld) [Mass fraction] 7.6 % [employer] Other Glucose - FINGER STICKon Glucose [Mass/Vol] 172 mg/dL [employer] Other HbA1c (Bld) [Mass fraction]o n 11-07-2022 A1C HEMOGLOBIN [employer] Other US KIDNEYSon 2022 US KIDNEYS EXAMINATION: US JOSSY Freida HISTORY: Acquired renal cystic disease COMPARISON: No relevant comparison available. TECHNIQUE: Ultrasound examination was performed of the bladder. FINDINGS: Right Kidney: Normal in size, contour and cortical echotexture. The cortex measures 1.3 cm. No solid cortical mass, hydronephrosis or obstructing nephrolithiasis Height: 6.2 cm Length: 12.9 cm Width: 5.5 cm Left Kidney: Normal in size, contour and cortical echotexture. 1 cm area of hypoechogenicity in the lateral cortex, nonspecific. 4 mm echogenic focus in the lingula, nonobstructing stone. Height: 5.4 cm Length: 11.9 cm Width: 4.7 cm Urinary bladder measures 3.0 x 4.2 x 6.9 cm with volume of 68 mL IMPRESSION: 1 cm hypoechogenic lesion of the left renal cortex with increased acoustic through transmission suggests a complex cyst Electronically authenticated by: MORGAN ROJO Date: 2022 18:30 Normal [facility] A1C HEMOGLOBINon 07-27-2022 HbA1c (Bld) [Mass fraction] 7.2 % [employer] Other Glucose - FINGER STICKon Glucose [Mass/Vol] 160 mg/dL [employer] Other HbA1c (Bld) [Mass fraction]o n 07-27-2022 A1C HEMOGLOBIN [employer] Other A1C HEMOGLOBINon 04-21-2022 HbA1c (Bld) [Mass fraction] 7.6 % [employer] Other Glucose - FINGER STICKon Glucose [Mass/Vol] 184 mg/dL [employer] Other HbA1c (Bld) [Mass fraction]o n 04-21-2022 A1C HEMOGLOBIN [employer] Other [employer] Creat Ratio,Uon Albumin DL <= 20 mg/L (U) [Mass/Vol] 10.3208007 mg/dL High 0.0-1.8 mg/dL [employer] Other Albumin/Creatinine DL <= 20 mg/L (U) [Mass ratio] 70.292172 mg/g High 0.0-30.0 mg/g [employer] Other Creatinine (U) [Mass/Vol] 224.6890413 mg/dL [employer] Other CBC AUTO DIFFon 04-07-2022 BASO # 0.0 103/ul Normal 0.0-0.1 [facility] Comment on above: Performed By: #### C BC #### [facility] [address] [place] [address] Dr. Eli Jarvis Basophils/100 WBC (Bld) 0.6 % Normal 0.2-2.0 [facility] Comment on above: Performed By: #### C BC #### [facility] [address] [place] [address] Dr. Eli Jarvis EO # 0.2 103/ul Normal 0.0-0.7 [facility] Comment on above: Performed By: #### C BC #### [facility] [address] [place] [address] Dr. Eli Jarvis Eosinophils/100 WBC (Bld) 2.9 % Normal 0.9-7.0 [facility] Comment on above: Performed By: #### C BC #### [facility] [address] [place] [address] Dr. Eli Jarvis Erythrocyte distribution width (RBC) [Ratio] 13.8 % Normal 11.0-15.0 [facility] Comment on above: Performed By: #### C BC #### [facility] [address] [place] [address] Dr. Eli Jarvis Hematocrit (Bld) [Volume fraction] 40.7 % Critically low 42.0-54.0 [facility] Comment on above: Performed By: #### C BC #### [facility] [address] [address] [address] Eli Jarvis Hemoglobin (Bld) [Mass/Vol] 13.3 g/dL Critically low 14.0-18.0 [facility] Comment on above: Performed By: #### C BC #### [facility] [address] [address] [address] Eli Jarvis IG # 0.04 10e3/ul Critically high 0.00-0.03 [facility] Comment on above: Performed By: #### C BC #### [facility] [address] [place] [address] Dr. Eli Jarvis IG % 0.6 % Critically high 0.0-0.5 [facility] Comment on above: Performed By: #### C BC #### [facility] [address] [place] [address] Dr. Eli Jarvis LYMPH # 1.3 103/ul Normal 1.2-3.8 [facility] Comment on above: Performed By: #### C BC #### [facility] [address] [place] [address] Dr. Eli Jarvis Lymphocytes/100 WBC (Bld) 18.7 % Critically low 20.5-60.0 [facility] Comment on above: Performed By: #### C BC #### [facility] [address] [place] [address] Dr. Eli Jarvis MANUAL DIFF REQ NO Normal [facility] Comment on above: Performed By: #### C BC #### [facility] [address] [place] [address] Dr. Eli Jarvis MCH (RBC) [Entitic mass] 28.1 pg Normal 25.9-34.0 [facility] Comment on above: Performed By: #### C BC #### [facility] [address] [place] [address] Dr. Eli Jarvis MCHC (RBC) [Mass/Vol] 32.7 g/dL Normal 29.9-35.2 [facility] Comment on above: Performed By: #### C BC #### [facility] [address] [address] [address] Eli Jarvis MCV (RBC) [Entitic vol] 86.0 fL Normal 80.0-94.0 [facility] Comment on above: Performed By: #### C BC #### [facility] [address] [address] [address] Eli Jarvis MONO # 0.4 103/ul Normal 0.3-0.8 [facility] Comment on above: Performed By: #### C BC #### [facility] [address] [address] [address] Eli Jarvis Monocytes/100 WBC (Bld) 6.2 % Normal 1.7-12.0 [facility] Comment on above: Performed By: #### C BC #### [facility] [address] [place] [address] Dr. Eli Jarvis NEUT # 4.9 103/ul Normal 1.4-6.5 [facility] Comment on above: Performed By: #### C BC #### [facility] [address] [place] [address] Dr. Eli Jarvis Neutrophils/100 WBC (Bld) 71.0 % Normal 43.0-75.0 [facility] Comment on above: Performed By: #### C BC #### [facility] [address] [place] [address] Dr. Eli Jarvis Platelet mean volume (Bld) [Entitic vol] 9.9 fL Normal 9.5-13.5 [facility] Comment on above: Performed By: #### C BC #### [facility] [address] [place] [address] Dr. Eli Jarvis PLT 184 103/ul Normal 150-450 [facility] Comment on above: Performed By: #### C BC #### [facility] [address] [place] [address] Dr. Eli Jarvis RBC 4.73 106/ul Normal 4.70-6.10 [facility] Comment on above: Performed By: #### C BC #### [facility] [address] [place], [place] [address] Dr. Eli Jarvis WBC 6.9 103/ul Normal 4.0-11.0 [facility] Comment on above: Performed By: #### C BC #### [facility] [address] [id number] Eli Jarvis LIPID PROFILEon 04-07-2022 CHOL-HDL RATIO NORM SEE BELOW Normal [facility] Comment on above: Result Comment: 3.3 - 4.4 LOW RISK 4.4 - 7.1 AVERAGE RISK 7.1 - 11.0 MODERATE RISK >11.0 HIGH RISK Performed By: #### C MP, LIPID ####[facility] [address] [place] [id number] Jarvis Cholesterol [Mass/Vol] 127 mg/dL Normal <=200 [facility] Comment on above: Performed By: #### C MP, LIPID ####[facility] [address] [place] [id number] Jarvis Cholesterol in HDL [Mass/Vol] 36 mg/dL Critically low 40-60 [place] [facility] [facility] Comment on above: Performed By: #### C MP, LIPID ####[facility] [id number] [place] [id number]. Eli Jarvis Cholesterol in LDL [Mass/Vol] 58.4 mg/dL Normal [facility] Comment on above: Performed By: #### C MP, LIPID ####[facility] Ymakkspzbe40[address] [place] [id number]. Eli Jarvis Cholesterol.total/ Cholesterol in HDL [Mass ratio] 3.5 {ratio} Normal [facility] Comment on above: Performed By: #### C MP, LIPID ####[facility] Ldfctwezqp9978 [place] [id number]. Eli Jarvis HDL NORMAL > or = 60 mg/dl - LO W CARDIOVASCULAR RISK <40 mg/dl - HIGH CARDIOVASCULAR RISK Normal [facility] Comment on above: Performed By: #### C MP, LIPID ####[facility] Hnjrwesucr2[address] [place] [id number]. Eli Jarvis LDL CALC NORMAL SEE BELOW Normal [facility] Comment on above: Result Comment: <100 mg/dl OPTIMAL 100 - 129 mg/dl NEAR OR ABOVE OPTIMAL 130 - 159 mg/dl BORDERLINE HIGH 160 - 189 mg/dl HIGH >190 mg/dl VERY HIGH Performed By: #### C MP, LIPID ####[facility] Lzrbtpxjpg3447 [place] [id number]. Eli Jarvis Triglyceride [Mass/Vol] 163 mg/dL Critically high <=150 [facility] Comment on above: Performed By: #### C MP, LIPID ####[facility] Hqfooanssk80[address] [place] [address]Dr. Eli Jarvis VLDL CALC 32.6 mg/dL Normal [facility] Comment on above: Performed By: #### C MP, LIPID ####[facility] Zcktcnjfvn5143 [place] [address]Dr. Eli Jarvis PROF 14(COMP METB)on 022 Albumin [Mass/Vol] 3.8 g/dL Normal 3.4-5.[address] [facility] Comment on above: Performed By: #### C MP, LIPID ####[facility] Jtcketefal16[address] [place] [address]Dr. Eli Jarvis Albumin/Globulin [Mass ratio] 1.1 {ratio} Normal [facility] Comment on above: Performed By: #### C MP, LIPID ####[facility] Inqkwvgdvl1443 [place] [address]Dr. Eli Jarvis ALP [Catalytic activity/Vol] 89 U/L Normal 46-116 [facility] Comment on above: Performed By: #### C MP, LIPID ####[facility] Hcmfsxrizp39[address] [place] [address]Dr. Eli Jarvis ALT [Catalytic activity/Vol] 43 U/L Normal 16-63 [facility] Comment on above: Performed By: #### C MP, LIPID ####[facility] Eqfbiyjtfl1705 [place] [address]Dr. Eli Jarvis Anion gap [Moles/Vol] 10.7 mmol/L Normal [facility] Comment on above: Performed By: #### C MP, LIPID ####[facility] Wkhsrwrpdh035[address] [place] [address]Dr. Eli Jarvis AST [Catalytic activity/Vol] 24 U/L Normal 15-37 [facility] Comment on above: Performed By: #### C MP, LIPID ####[facility] Ofphbtvekl4572 [place] [address]Dr. Eli Jarvis Bilirubin [Mass/Vol] 0.2 mg/dL Normal 0.2-1.0 [facility] Comment on above: Performed By: #### C MP, LIPID ####[facility] Aonxoinayl8926 [place] [address]Dr. Eli Jarvis Calcium [Mass/Vol] 9.1 mg/dL Normal 8.5-10.[address] [facility] Comment on above: Performed By: #### C MP, LIPID ####[facility] V[address]wooukure[address] [place], [place] [address]Dr. Eli Jarvis Chloride [Moles/Vol] 104 mmol/L Normal 98-107 [facility] Comment on above: Performed By: #### C MP, LIPID ####[facility] [address]zflam[address] [place], [place] [address]Dr. Eli Jarvis CO2 [Moles/Vol] 27.5 mmol/L Normal 21.0-32.0 [facility] Comment on above: Performed By: #### C MP, LIPID ####[facility] Yrsysxwehc[address] [place], [place] [address]Dr. Eli Jarvis Creatinine [Mass/Vol] 1.15 mg/dL Normal 0.70-1.30 [facility] Comment on above: Performed By: #### C MP, LIPID ####[facility] Jyedsriuci[address] [place] [address]Dr. Eli Jarvis EGFR-AF TUNISIAN >60 Normal >=60 [facility] Comment on above: Performed By: #### C MP, LIPID ####[facility] Jubxtnsijx[address] [place] [address]Dr. Eli Jarvis EGFR-NON AF TUNISIAN >60 Normal >=60 [facility] Comment on above: Performed By: #### C MP, LIPID ####[facility] Jphcyhgaoj4097 [place] [id number]. Eli Jarvis Globulin (S) [Mass/Vol] 3.4 g/dL Normal [facility] Comment on above: Performed By: #### C MP, LIPID ####[facility] Lzonramipy5019 [place] [id number]. Eli Jarvis Glucose [Mass/Vol] 157 mg/dL Critically high 74-106 [facility] Comment on above: Performed By: #### C MP, LIPID ####[facility] Neygcuhrrm38[address] [place] [address]Dr. Eli Jarvis Potassium [Moles/Vol] 4.2 mmol/L Normal 3.5-5.1 [facility] Comment on above: Performed By: #### C MP, LIPID ####[facility] [address]yix[address] [place], [place] [address]Dr. Eli Jarvis Protein [Mass/Vol] 7.2 g/dL Normal 6.4-8.[address] [facility] Comment on above: Performed By: #### C MP, LIPID ####[facility] Hqxvwunuuy[address] [place], [place] [address]Dr. Eli Jarvis Sodium [Moles/Vol] 138 mmol/L Normal 136-[address] [facility] Comment on above: Performed By: #### C MP, LIPID ####[facility] [address]cl[address] [place], [place] [id number]. Eli Jarvis Urea nitrogen [Mass/Vol] 26.0 mg/dL Critically high 7.0-18.0 [facility] Comment on above: Performed By: #### C MP, LIPID ####[facility] Tpxlrsvkey7[address] [place] [address]Dr. Eli Jarvis Urea nitrogen/Creatinin e [Mass ratio] 22.6 mg/mg Normal [facility] Comment on above: Performed By: #### C MP, LIPID ####[facility] Buvditvxgs6907 [place] [id number]. Eli Jarvis A1C HEMOGLOBINon 10-21-2021 HbA1c (Bld) [Mass fraction] 6.6 % [facility] Other Glucose - FINGER STICKon Glucose [Mass/Vol] 169 mg/dL [place] [facility] Other HbA1c (Bld) [Mass fraction]o n 10-21-2021 A1C HEMOGLOBIN RolePoint [facility] t cuaQea Other Comprehensive Metabolic Pane deann 07-29-2021 Albumin [Mass/Vol] 3.9 g/dL 3.2-5.5 [place] [facility] Other Albumin/Globulin [Mass ratio] 1.6 {ratio} [facility] Other ALP [Catalytic activity/Vol] 63 U/L 32-92 [facility] Other ALT [Catalytic activity/Vol] 32 U/L 10-60 [facility] Other AST [Catalytic activity/Vol] 32 U/L 10-42 [facility] Other Bilirubin [Mass/Vol] 0.5 mg/dL 0.3-1.2 [facility] Other Calcium [Mass/Vol] 9.7 mg/dL 8.2-10.2 [facility] Other Chloride [Moles/Vol] 105 mmol/L 95-114 [facility] Other CO2 [Moles/Vol] 22.7 mmol/L 22.0-30.0 [facility] ast cuaQea Other Creatinine [Mass/Vol] 1.28 mg/dL 0.64-1.27 [facility] Other Glucose [Mass/Vol] 111 mg/dL 70-100 [facility] Other Potassium [Moles/Vol] 4.1 mmol/L 3.5-5.1 [facility] Other Protein [Mass/Vol] 6.3 g/dL 6.1-7.9 [facility] Other Sodium [Moles/Vol] 139 mmol/L 136-146 [facility] Other Urea nitrogen [Mass/Vol] 23 mg/dL 9- [facility] Other Comprehensive Metabolic Panel 55 [facility] Other Comprehensive Metabolic Panel > 60 [facility] Other Comprehensive Metabolic Panel 2.4 [facility] Other Hepatitis Acute Panelon 10-2 Hepatitis Acute Panel Negative Negative [facility] Other Hepatitis Acute Panel <0.1 0.0-0.9 [facility] Other Vital Signs Date Time Vital Sign Value Performing Clinician Facility 09-11-2023 11:00-0500 Body height 167.64 cm Tondra Mapus Other [facility] Other 09-11-2023 11:00-0500 Body mass index (BMI) [Ratio] 44.91 kg/m2 Tondra Mapus Other [facility] Other 09-11-2023 11:00-0500 Body weight 126.24 kg Tondra Mapus Other [facility] Other 09-11-2023 11:00-0500 Diastolic blood pressure 82 mm[Hg] Tondra Mapus Other [facility] Other 09-11-2023 11:00-0500 Respiratory rate 18 /min Tondra Mapus Other [facility] Other 09-11-2023 11:00-0500 SaO2% (BldA) [Mass fraction] 99 % Tondra Mapus Other [facility] Other 09-11-2023 11:00-0500 Systolic blood pressure 153 mm[Hg] Aldo Middleton Other [facility] Other 08-24-2023 13:45-0500 Body height 167.64 cm Eligio Soni Other [facility] Other 08-24-2023 13:45-0500 Body mass index (BMI) [Ratio] 44.22 kg/m2 Eligio Soni Other [facility] Other 08-24-2023 13:45-0500 Body temperature 97.4 [degF] Eligio Soni Other [facility] Other 08-24-2023 13:45-0500 Body weight 124.29 kg Eligio Soni Other [facility] Other 08-24-2023 13:45-0500 Diastolic blood pressure 60 mm[Hg] Eligio Soni Other [facility] Other 08-24-2023 13:45-0500 SaO2% (BldA) [Mass fraction] 97 % Eligio Soni Other [facility] Other 08-24-2023 13:45-0500 Systolic blood pressure 130 mm[Hg] Eligio Soni Other [facility] Other 03-07-2023 10:00-0400 Body height 167.64 cm Terry Kelley Other [facility] Other 03-07-2023 10:00-0400 Body mass index (BMI) [Ratio] 43.61 kg/m2 Terry Kelley Other [facility] Other 03-07-2023 10:00-0400 Body weight 122.56 kg Terry Kelley Other [facility] Other 03-07-2023 10:00-0400 Diastolic blood pressure 70 mm[Hg] Terry Kelley Other [facility] Other 03-07-2023 10:00-0400 Respiratory rate 20 /min Terry Kelley Other [facility] Other 03-07-2023 10:00-0400 SaO2% (BldA) [Mass fraction] 96 % Terry Kelley Other [facility] Other 03-07-2023 10:00-0400 Systolic blood pressure 134 mm[Hg] Terry Kelley Other [facility] Other 02-14-2023 09:45-0400 Body height 172.72 cm Aldo Grantus Other [facility] Other 02-14-2023 09:45-0400 Body mass index (BMI) [Ratio] 41.32 kg/m2 Tondra Mapus Other [facility] Other 02-14-2023 09:45-0400 Body weight 123.29 kg Tondra Mapus Other [facility] Other 02-14-2023 09:45-0400 Diastolic blood pressure 82 mm[Hg] Tondra Mapus Other [facility] Other 02-14-2023 09:45-0400 Respiratory rate 18 /min Aldo Middleton Other [facility] Other 02-14-2023 09:45-0400 SaO2% (BldA) [Mass fraction] 97 % Aldo Grantus Other [facility] Other 02-14-2023 09:45-0400 Systolic blood pressure 157 mm[Hg] Aldo Grantus Other [facility] Other 01-20-2023 12:15-0400 Body height 172.72 cm Carito Fitt Other [facility] Other 01-20-2023 12:15-0400 Body mass index (BMI) [Ratio] 40.71 kg/m2 Carito Fitt Other [facility] Other 01-20-2023 12:15-0400 Body weight 121.47 kg Carito Fitt Other [facility] Other 01-05-2023 11:15-0400 Body height 172.72 cm Terry Ascencion Other [facility] Other 01-05-2023 11:15-0400 Body mass index (BMI) [Ratio] 40.96 kg/m2 Terry Ascencion Other [facility] Other 01-05-2023 11:15-0400 Body weight 122.2 kg Terry Ascencion Other [facility] Other 01-05-2023 11:15-0400 Diastolic blood pressure 73 mm[Hg] Terry Kelley Other [facility] Other 01-05-2023 11:15-0400 Respiratory rate 18 /min Terry Kimblediff Other [facility] Other 01-05-2023 11:15-0400 SaO2% (BldA) [Mass fraction] 98 % Terry Kimblediff Other [facility] Other 01-05-2023 11:15-0400 Systolic blood pressure 143 mm[Hg] Terry Kimblediff Other [facility] Other 11-24-2022 12:15-0500 Body height 172.72 cm Carito Fitt Other [facility] Other 11-24-2022 12:15-0500 Body mass index (BMI) [Ratio] 42.22 kg/m2 Carito Fitt Other [facility] Other 11-24-2022 12:15-0500 Body weight 125.96 kg Carito Fitt Other [facility] Other 11-18-2022 11:15-0500 Body height 172.72 cm Terry Ascencion Other [facility] Other 11-18-2022 11:15-0500 Body mass index (BMI) [Ratio] 41.96 kg/m2 Terry Kelley Other [facility] Other 11-18-2022 11:15-0500 Body weight 125.19 kg Terrynikolai Kimblediff Other [facility] Other 11-18-2022 11:15-0500 Diastolic blood pressure 75 mm[Hg] Terry Kelley Other [facility] Other 11-18-2022 11:15-0500 Respiratory rate 18 /min Terry Kimblediff Other [facility] Other 11-18-2022 11:15-0500 SaO2% (BldA) [Mass fraction] 99 % Terry Kimblediff Other [facility] Other 11-18-2022 11:15-0500 Systolic blood pressure 148 mm[Hg] Terry Kimblediff Other [facility] Other 11-07-2022 10:15-0500 Body height 172.72 cm Tondra Mapus Other [facility] Other 11-07-2022 10:15-0500 Body mass index (BMI) [Ratio] 42.58 kg/m2 Tondra Mapus Other [facility] Other 11-07-2022 10:15-0500 Body weight 127.05 kg Tondra Mapus Other [facility] Other 11-07-2022 10:15-0500 Diastolic blood pressure 83 mm[Hg] Tondra Mapus Other [facility] Other 11-07-2022 10:15-0500 Respiratory rate 18 /min Tondra Mapus Other [facility] Other 11-07-2022 10:15-0500 SaO2% (BldA) [Mass fraction] 98 % Tondra Mapus Other [facility] Other 01-30-2023 10:15-0500 Systolic blood pressure 170 mm[Hg] Tondra Mapus Other [facility] Other 10-18-2022 15:00-0500 Body height 172.72 cm Carito Fitt Other [facility] Other 2022 16:15-0400 Body height 172.72 cm Carito Fitt Other [facility] Other 07-27-2022 12:00-0400 Body height 172.72 cm Tondra Mapus Other [facility] Other 07-27-2022 12:00-0400 Body mass index (BMI) [Ratio] 40.9 kg/m2 Tondra Mapus Other [facility] Other 07-27-2022 12:00-0400 Body weight 122.02 kg Tondra Mapus Other [facility] Other 07-27-2022 12:00-0400 Diastolic blood pressure 75 mm[Hg] Tondra Mapus Other [facility] Other 07-27-2022 12:00-0400 Respiratory rate 20 /min Tondra Mapus Other [facility] Other 07-27-2022 12:00-0400 SaO2% (BldA) [Mass fraction] 97 % Tondra Mapus Other [facility] Other 07-27-2022 12:00-0400 Systolic blood pressure 141 mm[Hg] Tondra Mapus Other [facility] Other 06-08-2022 10:45-0400 Body height 172.72 cm Carito West Other [facility] Other 04-21-2022 12:00-0400 Body height 172.72 cm Tondra Mapus Other [facility] Other 04-21-2022 12:00-0400 Body mass index (BMI) [Ratio] 39.67 kg/m2 Tondra Mapus Other [facility] Other 04-21-2022 12:00-0400 Body weight 118.34 kg Tondra Mapus Other [facility] Other 04-21-2022 12:00-0400 Diastolic blood pressure 74 mm[Hg] Tondra Mapus Other [facility] Other 04-21-2022 12:00-0400 Respiratory rate 20 /min Tondra Mapus Other [facility] Other 04-21-2022 12:00-0400 SaO2% (BldA) [Mass fraction] 97 % Tondra Mapus Other [facility] Other 04-21-2022 12:00-0400 Systolic blood pressure 143 mm[Hg] Tondra Mapus Other [facility] Other 10-21-2021 12:00-0500 Body height 172.72 cm Tondra Mapus Other [facility] Other 10-21-2021 12:00-0500 Body mass index (BMI) [Ratio] 40.14 kg/m2 Tondra Mapus Other [facility] Other 10-21-2021 12:00-0500 Body weight 119.75 kg Tondra Mapus Other [facility] Other 10-21-2021 12:00-0500 Diastolic blood pressure 78 mm[Hg] Tondra Mapus Other [facility] Other 10-21-2021 12:00-0500 Respiratory rate 20 /min Tondra Mapus Other [facility] Other 10-21-2021 12:00-0500 SaO2% (BldA) [Mass fraction] 97 % Tondra Mapus Other [facility] Other 10-21-2021 12:00-0500 Systolic blood pressure 147 mm[Hg] Tondra Mapus Other [facility] Other 07-21-2021 15:45-0400 Body height 172.72 cm Morgan Snyderaminta Other [facility] Other 07-21-2021 15:45-0400 Body mass index (BMI) [Ratio] 38.77 kg/m2 Morgan Snyderaminta Other [facility] Other 07-21-2021 15:45-0400 Body weight 115.67 kg Morgan Joaquina Other [facility] Other 12-14-2017 15:17-0500 Body height 170.18 cm MD Scarlet Johnson Work Phone: [facility] Encounters Encounter Date Encounter Type Care Provider Facility Start: 05-13-2024 ambulatory MD Everett Miner [facility] ity:FT [facility] Start: 12-21-2023 ambulatory MD Everett Miner [facility] ity:FT FM [facility] Start: 10-18-2023 ambulatory Araceli BERMUDEZ Facility :[facility] [place] Start: 10-16-2023 End: 10-17-2023 ambulatory Miguelangel Mac MD Facility:[facility] [place] Start: 09-25-2023 End: 09-26-2023 ambulatory Miguelangel Mac MD Facility:[facility] [place] Start: 09-20-2023 End: 09-21-2023 ambulatory MD Everett Miner Facility:[facility] [place] [facility] Start: 09-12-2023 End: 09-12-2023 ambulatory Tondra Mapus Other [facility]Qea Other Start: 09-12-2023 Telephone encounter Tondra Mapus [facility] Start: 09-11-2023 (DM) Diabetes Tondra Mapus [facility] Start: 09-11-2023 End: 09-11-2023 ambulatory Daniel Everett Facility:[facility] Start: 08-24-2023 End: 08-24-2023 Patient encounter procedure MD Scarlet Johnson Work Phone: [facility] Start: 08-24-2023 End: 08-24-2023 ambulatory MD Scarlet Johnson Work Phone: [facility] Work Phone: Start: 08-24-2023 Office outpatient ne w 60 minutes Eligio Soni [facility] Start: 08-21-2023 End: 08-22-2023 ambulatory MD Everett Miner Facility:[facility] [place] [facility] Start: 07-26-2023 End: 07-27-2023 ambulatory MD Everett Miner Facility:[facility] [place] [facility] Start: 06-27-2023 ambulatory MD Everett Miner Facility : [place] Start: 06-26-2023 End: 06-27-2023 ambulatory Kaleb Mallory [place] Start: 06-21-2023 End: 06-21-2023 ambulatory [facility] Start: 06-19-2023 End: 06-20-2023 ambulatory Miguelangel Mac MD Facility:[facility] [place] Start: 06-14-2023 End: 06-14-2023 ambulatory Tondra Mapus Other [facility] Other Start: 06-14-2023 Telephone encounter Tondra Mapus [facility] Start: 06-09-2023 End: 06-09-2023 ambulatory Carito West Other [facility] Other Start: 06-09-2023 Nursing evaluation o f patient and report Caritostephanie West [facility] Start: 06-09-2023 Registered Recurring MD Scarlet franks [facility] Work Phone: Start: 06-05-2023 End: 06-06-2023 ambulatory Miguelangel Mac MD Facility:[facility] [place] Start: 05-31-2023 End: 05-31-2023 ambulatory Tondra Mapus Other [facility] Other Start: 05-31-2023 Telephone encounter Tondra Mapus [facility] Start: 05-22-2023 End: 05-23-2023 ambulatory Miguelangel Mac MD Facility:[facility] [place] Start: 05-15-2023 End: 05-16-2023 ambulatory Kaleb Mallory [place] Start: 05-10-2023 Encounter for genera l adult medical examination without abnormal findings MD Everett Miner [facility] Start: 05-10-2023 End: 05-11-2023 ambulatory MD Everett Miner [place] Start: 04-27-2023 End: 04-28-2023 ambulatory MD Everett Miner Facility:[facility] Jocelyn silva Start: 03-14-2023 End: 03-15-2023 ambulatory INVESTIGATOR VICE Nanette L Karl Facility:[facility] [place] Start: 03-10-2023 ambulatory MD Everett Miner Facility :[facility] Start: 03-07-2023 Follow-up encounter Terry [facility] Start: 03-07-2023 End: 03-08-2023 ambulatory Terry Kelley [facility] Other Start: 02-17-2023 End: 02-17-[address] JOVITA WOODARD . Facility:[facility] Start: 02-14-2023 (DM) Diabetes Tondra Mapus [facility] Start: 02-14-2023 End: 02-14-2023 ambulatory Tondra Mapus Other [facility] Other Start: 01-23-2023 End: 01-23-2023 ambulatory [facility] Start: 01-20-2023 ([facility] RD FU) [facility] F/ U Registerd Plant Controller Carito West [facility] Start: 01-20-2023 End: 01-20-2023 ambulatory Carito West Other [facility] Other Start: 01-05-2023 End: 01-05-2023 ambulatory Terry Kelley Other [facility] Other Start: 01-05-2023 Follow-up encounter Terry moreno [facility] Start: 12-30-2022 End: 12-31-2022 ambulatory MARY JOHNSON Facility:[facility] Start: 12-29-2022 End: 12-30-[address] BRITTNY MORALES Facility:[facility] Start: 12-21-2022 End: 01-28-[address] SCARLET JOHNSON . Facility:[facility] Start: 12-09-[address] SCARLET JOHNSON . Facil ity:[facility] Start: 12-08-2022 End: 12-09-[address] MORGAN ROJO Facility:[facility] Start: 11-25-2022 End: 11-26-[address] TERRY KELLEY Facility:[facility] Start: 11-25-2022 [facility] Start: 11-24-2022 ([facility] WMNI) [facility] Start: 11-24-2022 End: 11-24-2022 ambulatory Carito West Other [facility] Other Start: 11-22-2022 End: 11-22-2022 ambulatory Tondra Mapus Other [facility] Other Start: 11-22-2022 Nursing evaluation o f patient and report Tondra Juanitaus [facility] Start: 11-18-2022 End: 11-18-2022 ambulatory Terry Kelley Other [facility] Other Start: 11-18-2022 Nutrition therapy Terry Kelley [facility] Start: 11-08-2022 End: 11-09-[address] SCARLET JOHNSON . Facility:[facility] Start: 11-07-2022 (DM) Diabetes Aldo Middleton [facility] Start: 11-07-2022 End: 11-07-2022 ambulatory Tondra Mapus Other [facility] Other Start: 10-18-2022 (RD) Multimedia Services Coordinator [facility] Start: 10-18-2022 End: 10-18-2022 ambulatory Carito West Other [facility] Other Start: 08-18-2022 End: 08-19-[address] BRITTNY MORALES Facility:[facility] Start: 2022 ([facility] DB FU) [facility] Diabetes F/U [facility] Start: 2022 End: 08-11-[address] ARACELI BERMUDEZ [facility] Other Start: 07-29-2022 End: 07-30-[address] SCARLET JOHNSON . Facility:[facility] Start: 07-27-2022 (DM) Diabetes Tondra Mapus [facility] Start: 07-27-2022 End: 07-27-2022 ambulatory Tondra Mapus Other [facility] Other Start: 06-08-2022 (Plant Controller) Plant Controller Carito Alston [facility] Start: 06-08-2022 End: 06-08-2022 ambulatory Carito West Other [facility] Other Start: 04-21-2022 (DM) Diabetes Tondra Mapus [facility] Start: 04-21-2022 End: 04-21-2022 ambulatory Tondra Mapus Other [facility] Other Start: 04-21-2022 Telephone encounter Tondra Mapus [facility] Start: 04-07-2022 End: 04-08-[address] SCARLET JOHNSON . Facility: Start: 10-21-2021 (DM) Diabetes Tondra Mapus [facility] Start: 10-21-2021 End: 10-21-2021 ambulatory Tondra Mapus Other [facility] Other Start: 07-21-2021 Office outpatient ne w 45 minutes Morgan Kunz [facility] Procedures Date Procedure Procedure Detail Performing Clinician Start: 08-24-2023 Duplex scan of lower limb veins MD Scarlet Johnson Work Phone: Immunizations Immunization Date Immunization Notes Care Provider Fa bita 12-30-2020 COVID-19 Vaccine Moderna - Documentation Purposes Only Morgan Kunz Other [facility] Other 12-02-2020 COVID-19 Vaccine Moderna - Documentation Purposes Only Morgan Kunz Other [facility] Other Payers Date Payer Category Payer Medicare 2022 Unknown 2017 Self-pay [id number] 2017 Unknown [id number] 1960 Medicare [id number] 2.1 [id number] 1959 Unknown [id number] 2. 16.840.1.325859.19 1949 Unknown [id number] 2.16.84 0.1.551348.3.579.2.593 1949 Unknown [id number] 2.16.84 0.1.714460.3.579.2.593 1949 Unknown [id number] 2.16.84 0.1.439691.3.579.2.593 1949 Unknown [id number] 2.16.84 0.1.599715.3.579.2.593 1949 Unknown [id number] 2.16.84 0.1.800376.3.579.2.593 1949 Unknown [id number] 2.16.84 0.1.444670.3.579.2.593 1949 Unknown [id number] 2.16.84 0.1.927009.3.579.2.593 1949 Unknown [id number] 2.16.84 0.1.860027.3.579.2.593 1949 Unknown [id number] 2.16.84 0.1.451218.3.579.2.593 1949 Unknown [id number] 2.16.84 0.1.496658.3.579.2.593 1949 Unknown [id number] 2.16.84 0.1.660846.3.579.2.593 1949 Unknown [id number] 2.16.84 0.1.921584.3.579.2.593 1949 Unknown [id number] 2.16.8 40.1.702854.3.579.2.727 1949 Unknown [id number] 2.16.8 40.1.065830.3.579.2.727 1949 Unknown [id number] 2.16.8 40.1.309262.3.579.2.727 1949 Unknown [id number] 2.16.8 40.1.277713.3.579.2.727 1949 Unknown [id number] 2.16.8 40.1.328835.3.579.2.727 1949 Unknown [id number] 2.16.8 40.1.456974.3.579.2.727 1949 Unknown [id number] 2.16.8 40.1.200932.3.579.2.727 1949 Unknown [id number] 2.16.8 40.1.220630.3.579.2.727 1949 Unknown [id number] 2.16.8 40.1.624027.3.579.2.727 1949 Unknown [id number] 2.16.8 40.1.285530.3.579.2.727 1949 Unknown [id number] 2.16.8 40.1.281946.3.579.2.727 1949 Unknown [id number] 2.16.8 40.1.209856.3.579.2.727 1949 Unknown [id number] 2.16. 840.1.161196.3.579.2.196 1949 Unknown [id number] 2.16. 840.1.091103.3.579.2.196 1949 Unknown [id number] 2.16. 840.1.892595.3.579.2.196 1949 Unknown [id number] 2.16. 840.1.243309.3.579.2.196 1949 Unknown [id number] 2.16. 840.1.506697.3.579.2.196 Unknown Standard [employer] Ins [id number] Unknown [id number] [id number] Unknown [id number] [id number] Unknown [id number] [id number] [id number] Social History Date Type Detail Facility Unknown if ever smoked [facility] Other Sex Assigned At Sex Assigned At Bir th [facility] Other Start: 1950 Sex Assigned At Male F [facility] Medical Equipment Procedure Code Equipment Code Equipment Origin al Text Equipment Identifier Dates ESWL, one kidney STENT CONTOUR 4 .8FR X 22-30CM FDA Start: 06-07-2018 Start: 12-11-2017 Clinical Notes 07-21-2021 to 09-11-2023 Note Date & Type Note Facility 09-11-2023 Evaluation note Encounter Date Diagnosis Assessment Notes Sep, Hyperlipidemia, unspecified hyperlipidemia type (ICD-10 - E78.5) High cholesterol material was printed 05/2023 ldl 63. at target; trig 164 - on statin Sep, Type 2 diabetes mellitus with diabetic chronic kidney disease (ICD-10 - E11.22) Type 2 diabetes material was printed 1. Controlled, a Type 2 diabetes with A1c of 6.9% 2. Blood glucose levels according to baylee 3 cgm download 08/29/23-09/11/23 : Avg glucose 154. >250-3%, >180-20%, 70-180-71%, <70-5%, <54-1%, GMI 7%. 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 Pt reports he did contact [facility] and rc'd replacement sensor. Reviewed with pt if glucose fingerstick >20 points above cgm would recommend changing sensor. Reviewed with pt target fasting am/meal to meal glucose 90/130; 2 hours after meal <180; hs 120/150-180. May need to consider adding basal insulin if fasting am glucose >130's. Pt verbalizes understanding. Note pt has intolerance to glp1 class of medications, metformin. Cost barrier for use of sglt2. 3. Patient is alert, oriented and receptive to making changes or counseling. Notes: Seen for 45 minutes for an assessment of current glucose pattern, changes in treatment plan, counseling and coordination of care related to diabetes, risks, and benefits of treatment, medications, and side effects. TOPICS REVIEWED: 1. Time was spent reviewing: a. Basic concepts of diabetes, progressive beta cell , concepts of basal/bolus/brad ective insulin requirements. b. Nutrition: Concepts of healthy diet, encouraged to decrease saturated fat in diet and increase non-starchy vegetables and fruits in diet. BMI: Pt. needs to select one small change to decrease caloric intake or increase physical activity to help decrease weight. c. Correct treatment of hypoglycemia, carry a glucose source at all times on your person, in vehicles, and at bedside. Can use glucose tablets/4, four ounces of pop or juice equal to 15 G of carbohydrate. Blood glucose should be 100 mg/dl or higher when driving. d. ADA glucose goals for age and medical complexity reviewed e. Patient questions addressed 2. Activity/exercis e: Encouraged to start any form of physical activity. Start low level and increase slowly to a minimal goal of 150 minutes/week. Limit activity to what is allowed by other issues such as cardiac, pulmonary or orthopedic restrictions. 3. Standards of care: Reminded to have an annual dilated eye exam, A1C every 3 months, urine testing for microalbumin once/year, check feet daily and report any cuts or sores that do not appear to be healing. 4. Meter: Plan to check blood glucose: Please check blood glucose levels 1 time/day. Back to back meals reveal effectiveness of bolus dosing. The Blood glucose data is used to determine insulin doses, and confirm symptoms for hypoglycemia and hyperglcyemia. 5. [facility]. Contact office if any issues or concerns with patterns of hypoglycemia, hyperglycemia, or diabetes medication issues. 6. Prescriptions: Will call when needed. 7. Prescriptions will not be filled unless you are compliant with follow up appointments or have a follow up appointment scheduled as ordered by your provider. Refills should be requested at the time of your visit. Sep, Hypertension, unspecified type (ICD-10 - I10) About hypertension material was printed on arb- above target; f/u with pcp for further recommendation Sep, Dietary counseling and surveillance (ICD-10 - Z71.3) Eat a diet rich in fruits and vegetables material was printed see above Sep, Albuminuria (ICD-10 - R80.9) 05/31 m/a cr ratio 159 reviewed importance of glucose/bp control to prevent further nephropathy Sep, BMI 40.0-44.9, adult (ICD-10 - Z68.41) Heart healthy diet material was printed Sep, Current use of insulin (ICD-10 - Z79.4) [facility] Other 11-16-2023 Evaluation note* Encounter Date Diagnosis Assessment Notes Treatment Notes Treatment Clinical Notes Aug, Cellulitis of right lower extremity (ICD-10 - L03.115) I did thoroughly review all the studies from [place]. I do not have any images to look at but I do have a printout of the interpretation. Patient apparently has no significant arterial disease in the right lower extremity and he has no significant varicose vein disease in the right lower extremity. I explained this to the patient today. Based on this report I have nothing to offer the patient. There is no venous incompetence nor is there any arterial disease. I do not have much to offer this patient if the wound. Of these reports is accurate. However clinical exam shows that the patient has diminished pulse in the right foot therefore I do question the arterial study results. In addition the patient states that he was lying down on the bed during the venous work-up. I normally have my patient standing which will stress the valve and more axillary reflect the effects of gravity on the patient. Therefore I have offered to repeat the studies in hopes of offering this patient something. He is agreeable to this. However, I did caution the patient that if all the studies revealed no significant arterial or venous abnormalities and the patient will be need to treat medically with weight loss exercise and compression stockings. He is aware of this. We will schedule a repeat study and follow-up with the results. I did go over the arterial studies today of the right lower extremity. His ABIs 1. The waveforms are normal. I also repeat in the right lower extremity full functional venous duplex study while standing. He has mild reflux at best. I explained to the patient that there is nothing surgical to offer him. He does not have any significant valvular dysfunction or arterial disease. This patient was very disappointed to hear this. But Ruth Ann came to the same result. Dr. Rojo and I both agree that there is nothing surgical to offer this patient with his arteries or veins. Unfortunately he needs traditional conservative management which will include weight loss exercise and compression therapy. [facility] Other 09-13-2023 NotePatient here for 6 mo follow up CAD, hypertension, and hyperlipidemia. Denies chest pain and palpitations. Says his SOB w/ exertion remains unchanged. C/o RLE edema w/ poor wound healing. He's seeing wound care at [facility] in [place]. Had normal NARAYAN's in Jul 2022. RLE venous doppler was negative for DVT in December 2022.[facility]09-13-2023 NoteCardiovascular Medicine [facility] SUBJECTIVE Dong Whitmore is a 72 y.o. male here for follow-up. HPI 72 yo male with a past medical history including hypertension, hyperlipidemia, and coronary artery disease (previous PCI to LCx and RCA). Patient presents today for follow-up. He denies any cardiac complaints or concerns. He denies any chest pain or shortness of breath. He denies any orthopnea or paroxysmal nocturnal dyspnea. He has chronic venous stasis changes and is seeing vascular/wound care for management. He denies any changes in his lower extremities. No additional complaints or concerns at the present time. Patient Active Problem List Diagnosis Chest pain Chronic back pain Essential hypertension Gastroesophageal reflux disease Hyperlipidemia Neuropathy Obesity Sleep apnea Type 2 diabetes mellitus (CMS/HCC) Past Medical History: Diagnosis Date CAD (coronary artery disease) DM type 2 (diabetes mellitus, type 2) (CMS/HCC) HLD (hyperlipidemia) HTN (hypertension) Neuropathy ULISES (obstructive sleep apnea) Family History Problem Relation Name Age of Onset Coronary artery disease Other Diabetes Other Social History Tobacco Use Smoking status: Never Smokeless tobacco: Never Substance Use Topics Alcohol use: Not Currently Allergies Allergen Reactions Cefuroxime Celecoxib Diflunisal Metformin Naproxen Nsaids (Non-Steroidal Anti-Inflammatory Drug) Rofecoxib Sulindac Victoza 2-Gee [Liraglutide] ROS 10 point ROS is performed and is negative unless otherwise specified in HPI OBJECTIVE Visit Vitals BP 138/78 (BP Location: Left arm, Patient Position: Sitting) Pulse 63 Ht 1.727 m (5' 8 ) Wt 122 kg (269 lb) SpO2 93% BMI 40.90 kg/m??? Smoking Status Never BSA 2.42 m??? Medications: Current Outpatient Medications: acarbose (Precose) 25 mg tablet, Take 50 mg by mouth with breakfast, with lunch, and with evening meal., Disp: , Rfl: aspirin 81 mg EC tablet, in the morning., Disp: , Rfl: buPROPion SR (Wellbutrin SR) 150 mg 12 hr tablet, TAKE 1 TABLET BY MOUTH EVERY DAY IN THE MORNING, Disp: , Rfl: losartan (Cozaar) 50 mg tablet, Take 75 mg by mouth in the morning., Disp: , Rfl: metoprolol tartrate (Lopressor) 50 mg tablet, Take 1 tablet (50 mg) by mouth in the morning and at bedtime., Disp: 180 tablet, Rfl: 3 nitroglycerin (Nitrostat) 0.4 mg SL tablet, DISSOLVE 1 TABLET IN MOUTH NEEDED, Disp: , Rfl: NovoLOG FlexPen U-100 Insulin 100 unit/mL (3 mL) pen, 1:50 CORRECTIVE SCALE BEFORE MEALS 3 TIMES A DAY SUBCUTANEOUSLY DIRECTED, Disp: , Rfl: pioglitazone (Actos) 15 mg tablet, pioglitazone 15 mg tablet TAKE 1 TABLET BY MOUTH EVERY DAY FOR 90 DAYS, Disp: , Rfl: simvastatin (Zocor) 40 mg tablet, TAKE 1 TABLET BY MOUTH EVERYDAY AT BEDTIME, Disp: , Rfl: SITagliptin phosphate (Januvia) 100 mg tablet, Januvia 100 mg tablet TAKE 1/2 TABLET BY MOUTH DAILY, Disp: , Rfl: sodium bicarbonate 650 mg tablet, sodium bicarbonate 650 mg tablet TAKE 2 TABLETS BY MOUTH 3 TIMES A DAY, Disp: , Rfl: tiZANidine (Zanaflex) 4 mg tablet, tizanidine 4 mg tablet TAKE 1 TABLET BY MOUTH EVERY DAY AT BEDTIME, Disp: , Rfl: venlafaxine (Effexor) 37.5 mg tablet, venlafaxine 37.5 mg tablet TAKE 1 TABLET BY MOUTH TWICE A DAY, Disp: , Rfl: blood pressure test kit-large kit, 1 kit in the morning., Disp: 1 kit, Rfl: 0 Physical Exam Constitutional: Appearance: Normal appearance. He is obese. HENT: Head: Normocephalic and atraumatic. Right Ear: External ear normal. Left Ear: External ear normal. Eyes: Extraocular Movements: Extraocular movements intact. Pupils: Pupils are equal, round, and reactive to light. Neck: Vascular: No carotid bruit. Cardiovascular: Rate and Rhythm: Normal rate and regular rhythm. Pulses: Normal pulses. Heart sounds: Normal heart sounds. Pulmonary: Effort: Pulmonary effort is normal. Breath sounds: Normal breath sounds. Abdominal: General: Bowel sounds are normal. Palpations: Abdomen is soft. Musculoskeletal: General: Normal range of motion. Cervical back: Neck supple. Right lower le+ Pitting Edema present. Left lower leg: No edema. Skin: General: Skin is warm and dry. Neurological: General: No focal deficit present. Mental Status: He is alert and oriented to person, place, and time. Psychiatric: Mood and Affect: Mood normal. Behavior: Behavior normal. Thought Content: Thought content normal. Judgment: Judgment normal. Labs: 11/25/22: TSH 2.37 Labs 11/08/22 CBC: hgb 13.8, plt 189 CMP: Cr. 1.32, BUN 23, GFR 53, K 4.2, ALT 42, AST 26 NTproBNP: 122 Labs 04/07/22 CBC: hgb 13.3, plt 184 CMP: Cr. 1.15, BUN 26, K 4.2, GFR >60, ALT 43, AST 24 Lipids: chol 127, HDL 36, trig 163, LDL 58 labs 04/23/21 Renal function stable BUN 28, CR 1.46 LFT normal Chol 114, HDL 31, Trig 208, LDL 41.8 Testing/Procedures: NM stress test (12/30/2022): No acute or reversible is (more content not included)...[facility]09-01-2023 Evaluation note* Encounter Date Diagnosis Assessment Notes Treatment Notes Treatment Clinical Notes Jun, Type 2 diabetes mellitus with diabetic chronic kidney disease (ICD-10 - E11.22) Dong and his came in today for [place] baylee 3 training and refresher on his insulin Corrective scale. He brought the Baylee 3 sensors and reader. I set up the reader and Dong's was able to apply the sensor to the back of his left arm using an alcohol swab and Skin Tac for added adhesion. He was taught how to apply the sensor using the supplied directions. He was given a no cut Grif Film Color Tester to try and a brochure to buy them online. We discussed the Novolog pen and that he is to use it if his BG before a meal is greater than 150. He was able to dial the pen and knows how to put the pen needle on and deliver the dose. 30 minutes were spent educating the patient by Kamlesh Sparrow RN, [facility]. [facility] Other 05-30-2023 Evaluation note* Encounter Date Diagnosis Assessment Notes Treatment Notes Treatment Clinical Notes February, Type 2 diabetes mellitus with hyperglycemia, without long-term current use of insulin (ICD-10 - E11.65) February, BMI 40.0-44.9, adult (ICD-10 - Z68.41) February, Hypertension (ICD-10 - I10) February, Mixed hyperlipidemia (ICD-10 - E78.2) February, CAD (coronary artery disease) (ICD-10 - I25.10) February, MEDEIROS (nonalcoholic steatohepatitis) (ICD-10 - K75.81) February, Albuminuria (ICD-10 - R80.9) February, Foot pain (ICD-10 - M79.673) February, Neuropathy (ICD-10 - G62.9) February, Metabolic syndrome X (ICD-10 - E88.81) [facility] Other 05-09-2023 Evaluation note* Encounter Date Diagnosis Assessment Notes Treatment Notes Treatment Clinical Notes February, Type 2 diabetes mellitus with hyperglycemia, without long-term current use of insulin (ICD-10 - E11.65) Type 2 diabetes material was printed 1. Uncontrolled, a Type 2 diabetes with A1c of 7.6% 2. Blood glucose levels above target. Dscussed with pt to contiue with lifestyle behavior changes recommend increasing pioglitizone to 30mg once daily. Reviewed with pt if fasting am glucose continues to be above target will recommend starting basal insulin. Reviewed with pt target fasting am/meal to meal glucose 90/130 for improved glycemia. Pt verbalizes understanding. Note pt has intolerance to glp1 class of medications, metformin. Cost barrier for use of sglt2. 3. Patient is alert, oriented and receptive to making changes or counseling. Notes: Seen for 45 minutes for an assessment of current glucose pattern, changes in treatment plan, counseling and coordination of care related to diabetes, risks, and benefits of treatment, medications, and side effects. TOPICS REVIEWED: 1. Time was spent reviewing: a. Basic concepts of diabetes, progressive beta cell , concepts of basal/bolus/correct liza insulin requirements. b. Nutrition: Concepts of healthy diet, encouraged to decrease saturated fat in diet and increase non-starchy vegetables and fruits in diet. BMI: Pt. needs to select one small change to decrease caloric intake or increase physical activity to help decrease weight. c. Correct treatment of hypoglycemia, carry a glucose source at all times on your person, in vehicles, and at bedside. Can use glucose tablets/4, four ounces of pop or juice equal to 15 G of carbohydrate. Blood glucose should be 100 mg/dl or higher when driving. d. ADA glucose goals for age and medical complexity reviewed e. Patient questions addressed 2. Activity/exercise: Encouraged to start any form of physical activity. Start low level and increase slowly to a minimal goal of 150 minutes/week. Limit activity to what is allowed by other issues such as cardiac, pulmonary or orthopedic restrictions. 3. Standards of care: Reminded to have an annual dilated eye exam, A1C every 3 months, urine testing for microalbumin once/year, check feet daily and report any cuts or sores that do not appear to be healing. 4. Meter: Plan to check blood glucose: Please check blood glucose levels 1 time/day. Back to back meals reveal effectiveness of bolus dosing. The Blood glucose data is used to determine insulin doses, and confirm symptoms for hypoglycemia and hyperglcyemia. 5. [facility]. Contact office if any issues or concerns with patterns of hypoglycemia, hyperglycemia, or diabetes medication issues. 6. Prescriptions: IGLESIA ROMAN: Pioglitizone sent. 7. Prescriptions will not be filled unless you are compliant with follow up appointments or have a follow up appointment scheduled as ordered by your provider. Refills should be requested at the time of your visit. February, Hyperlipidemia, unspecified hyperlipidemia type (ICD-10 - E78.5) High cholesterol material was printed 03/2022 ldl 58.4. at target; trig 163 - on statin February, Hypertension, unspecified type (ICD-10 - I10) About hypertension material was printed on arb- uncontrolled- f/u with pcp for further recommendation February, Dietary counseling and surveillance (ICD-10 - Z71.3) Eat a diet rich in fruits and vegetables material was printed see above February, Albuminuria (ICD-10 - R80.9) 04/29 m/a cr ratio 70 reviewed importance of glucose/bp control to prevent further nephropathy February, BMI 40.0-44.9, adult (ICD-10 - Z68.41) Heart healthy diet material was printed 9 pound weight loss from last visit, continue with weight loss efforts [facility] Other 04-17-2023 NotePatient here for follow up stress test and echo. Still denies chest pain but has SOB with exertion. Says his LE is a little better. Had RLE venous doppler shortly after last visit which was negative for DVT. Review of Systems Cardiovascular: Positive for dyspnea on exertion and leg swelling. Respiratory: Positive for cough. Musculoskeletal: Positive for arthritis, back pain and joint pain. All other systems reviewed and are negative.[facility] 01-23-2023 NoteCardiovascular Medicine [facility] SUBJECTIVE Chief Complaint Patient presents with Cardiac Stress Test Dong Whitmore is a 72 y.o. male here for follow-up to review his recent testing. HPI PMHx: hypertension, hyperlipidemia, and coronary artery disease (previous PCI to LCx and RCA) 11/25/22 He feels like he is having some vague symptoms. He has some left side chest tightness with exertion or stress. He has MILLER, feels like is it worsening. He c/o SOB just walking into the building from the parking lot. He has gained 10lbs in 2 months maybe. He feels like he keeps putting on weight. He is currently at a weightloss program at [facility]. He is seeing the garage manager. 01/23/2023 He is down about 10lbs since last seen 2 months ago. His breathing is feeling improved. He has some right leg swelling, he had a RLE ultrasound which was negative for DVT. He is going to OT. They are thinking he has lymphedema. His activity has been limited due to the swelling and right toe pain. His right toe pain has been worked up with ABIs, last one 07/2022 which was normal. He denies any current issues with chest tightness - he reports this has been an ongoing issue and was not new for him. He denies orthopnea, PND, dizziness/LH, palpitations. He has 2 BP cuffs at home, getting different readings, about 40 point difference. He has trouble with eating vegetables. Patient Active Problem List Diagnosis Chest pain Chronic back pain Essential hypertension Gastroesophageal reflux disease Hyperlipidemia Neuropathy Obesity Sleep apnea Type 2 diabetes mellitus ([facility]) Past Medical History: Diagnosis Date CAD (coronary artery disease) DM type 2 (diabetes mellitus, type 2) ([facility]) HLD (hyperlipidemia) HTN (hypertension) Neuropathy ULISES (obstructive sleep apnea) Family History Problem Relation Name Age of Onset Coronary artery disease Other Diabetes Other Social History Tobacco Use Smoking status: Never Smokeless tobacco: Never Substance Use Topics Alcohol use: Not Currently Allergies Allergen Reactions Cefuroxime Celecoxib Diflunisal Metformin Naproxen Nsaids (Non-Steroidal Anti-Inflammatory Drug) Rofecoxib Sulindac Victoza 2-Gee [Liraglutide] ROS Cardiovascular: Positive for dyspnea on exertion and leg swelling. Respiratory: Positive for cough. Musculoskeletal: Positive for arthritis, back pain and joint pain. All other systems reviewed and are negative. OBJECTIVE Visit Vitals BP 120/66 (BP Location: Right arm, Patient Position: Sitting) Pulse 61 Ht 1.727 m (5' 8 ) Wt 121 kg (266 lb) SpO2 96% BMI 40.45 kg/m??? Smoking Status Never BSA 2.41 m??? Medications: Current Outpatient Medications: acarbose (Precose) 25 mg tablet, Take 50 mg by mouth with breakfast, with lunch, and with evening meal., Disp: , Rfl: aspirin 81 mg EC tablet, in the morning., Disp: , Rfl: buPROPion SR (Wellbutrin SR) 150 mg 12 hr tablet, TAKE 1 TABLET BY MOUTH EVERY DAY IN THE MORNING, Disp: , Rfl: losartan (Cozaar) 50 mg tablet, losartan 50 mg tablet TAKE 1 TABLET BY MOUTH EVERYDAY AT BEDTIME, Disp: , Rfl: nitroglycerin (Nitrostat) 0.4 mg SL tablet, DISSOLVE 1 TABLET IN MOUTH NEEDED, Disp: , Rfl: pioglitazone (Actos) 15 mg tablet, pioglitazone 15 mg tablet TAKE 1 TABLET BY MOUTH EVERY DAY FOR 90 DAYS, Disp: , Rfl: simvastatin (Zocor) 40 mg tablet, TAKE 1 TABLET BY MOUTH EVERYDAY AT BEDTIME, Disp: , Rfl: SITagliptin phosphate (Januvia) 100 mg tablet, Januvia 100 mg tablet TAKE 1/2 TABLET BY MOUTH DAILY, Disp: , Rfl: sodium bicarbonate 650 mg tablet, sodium bicarbonate 650 mg tablet TAKE 2 TABLETS BY MOUTH 3 TIMES A DAY, Disp: , Rfl: tiZANidine (Zanaflex) 4 mg tablet, tizanidine 4 mg tablet TAKE 1 TABLET BY MOUTH EVERY DAY AT BEDTIME, Disp: , Rfl: venlafaxine (Effexor) 37.5 mg tablet, venlafaxine 37.5 mg tablet TAKE 1 TABLET BY MOUTH TWICE A DAY, Disp: , Rfl: blood pressure test kit-large kit, 1 kit in the morning., Disp: 1 kit, Rfl: 0 metoprolol tartrate (Lopressor) 50 mg tablet, Take 1 tablet (50 mg) by mouth in the morning and at bedtime., Disp: 180 tablet, Rfl: 3 Physical Exam Constitutional: Appearance: Normal appearance. He is obese. HENT: Head: Normocephalic and atraumatic. Right Ear: External ear normal. Left Ear: External ear normal. Eyes: Extraocular Movements: Extraocular movements intact. Pupils: Pupils are equal, round, and reactive to light. Neck: Vascular: No carotid bruit. Cardiovascular: Rate and Rhythm: Normal rate and regular rhythm. Pulses: Normal pulses. Heart sounds: Normal heart sounds. Pulmonary: Effort: Pulmonary effort is normal. Breath sounds: Normal breath sounds. Abdominal: General: Bowel sounds are normal. Palpations: Abdomen is soft. Musculoskeletal: General: Normal range of motion. Cervical back: Neck supple. Right lower le+ Pitting Edema present. Left l (more content not included)...[facility] 01-20-2023 Evaluation note* Encounter Date Diagnosis Assessment Notes Treatment Notes Treatment Clinical Notes Jan, Obesity, unspecified classification, unspecified obesity type, 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 serious comorbidity present (ICD-10 - E66.9) Jan, BMI 40.0-44.9, adult (ICD-10 - Z68.41) Jan, Other Summary of Visi t: (A) Discussed where various foods can fit using the plate method (B) Identified the division of responsibility; discussed I provide the information, he decides what to do with it (C) Emphasized flavoring vegetables to increase palatability Patient set the following goals: Add flavors to vegetables [facility] Encounter Date Diagnosis Assessment Notes Treatment Notes Treatment Clinical Notes Dec, Type 2 diabetes mellitus with hyperglycemia, without long-term current use of insulin (ICD-10 - E11.65) Dec, BMI 40.0-44.9, adult (ICD-10 - Z68.41) Dec, Hypertension (ICD-10 - I10) Dec, Mixed hyperlipidemia (ICD-10 - E78.2) Dec, CAD (coronary artery disease) (ICD-10 - I25.10) Dec, MEDEIROS (nonalcoholic steatohepatitis) (ICD-10 - K75.81) Dec, Albuminuria (ICD-10 - R80.9) Dec, Foot pain (ICD-10 - M79.673) Dec, Neuropathy (ICD-10 - G62.9) Dec, Metabolic syndrome X (ICD-10 - E88.81) [facility] Other 03-23-2023 NoteCARDIAC STRESS TEST Requesting Physician: Procedure Date:12/29/2022 PERFORMING PHYSICIAN: Elaine Fisher M.D. INDICATION: Dyspnea on exertion. STRESS TEST TYPE: Lexiscan Resting EKG: Abnormal, Resting heart rate: 82 Peak heart rate: 92 Peak maximal heart rate: 63% Resting blood pressure: 138/70 Peak blood pressure: ST changes: None. Symptoms: None. Arrhythmias: None. CONCLUSION: 1. No definite EKG evidence of ischemia. 2. Please refer to separately interpreted and reported nuclear myocardial perfusion imaging.[id number] NoteCardiovascular Medicine [facility] SUBJECTIVE Chief Complaint Patient presents with Coronary Artery Disease Hypertension Hyperlipidemia Dong Whitmore is a 72 y.o. male here for follow-up. HPI PMHx: hypertension, hyperlipidemia, and coronary artery disease (previous PCI to LCx and RCA) He feels like he is having some vague symptoms. He has some left side chest tightness with exertion or stress. He has MILLER, feels like is it worsening. He c/o SOB just walking into the building from the parking lot. He has gained 10lbs in 2 months maybe. He feels like he keeps putting on weight. He is currently at a weightloss program at [facility]. He is seeing the garage manager. Patient Active Problem List Diagnosis Chest pain Chronic back pain Essential hypertension Gastroesophageal reflux disease Hyperlipidemia Neuropathy Obesity Sleep apnea Type 2 diabetes mellitus ([facility]) Past Medical History: Diagnosis Date CAD (coronary artery disease) DM type 2 (diabetes mellitus, type 2) ([facility]) HLD (hyperlipidemia) HTN (hypertension) Neuropathy ULISES (obstructive sleep apnea) Family History Problem Relation Name Age of Onset Coronary artery disease Other Diabetes Other Social History Tobacco Use Smoking status: Never Smokeless tobacco: Never Substance Use Topics Alcohol use: Not Currently Allergies Allergen Reactions Cefuroxime Celecoxib Diflunisal Metformin Naproxen Nsaids (Non-Steroidal Anti-Inflammatory Drug) Rofecoxib Sulindac Victoza 2-Gee [Liraglutide] Review of Systems Constitutional: Positive for malaise/fatigue. Negative for chills and fever. Cardiovascular: Positive for chest pain (chest tightness), dyspnea on exertion and leg swelling (right leg, chronic since toe amputation). Negative for irregular heartbeat, near-syncope, palpitations and syncope. Musculoskeletal: Positive for joint pain (bilateral hip pain). OBJECTIVE Visit Vitals BP 149/70 (BP Location: Left arm, Patient Position: Sitting) Pulse 61 Ht 1.727 m (5' 8 ) Wt 126 kg (277 lb) SpO2 94% BMI 42.12 kg/m??? Smoking Status Never BSA 2.46 m??? Medications: Current Outpatient Medications: acarbose (Precose) 25 mg tablet, Take 50 mg by mouth with breakfast, with lunch, and with evening meal., Disp: , Rfl: aspirin 81 mg EC tablet, in the morning., Disp: , Rfl: buPROPion SR (Wellbutrin SR) 150 mg 12 hr tablet, TAKE 1 TABLET BY MOUTH EVERY DAY IN THE MORNING, Disp: , Rfl: losartan (Cozaar) 50 mg tablet, losartan 50 mg tablet TAKE 1 TABLET BY MOUTH EVERYDAY AT BEDTIME, Disp: , Rfl: metoprolol tartrate (Lopressor) 50 mg tablet, metoprolol tartrate 50 mg tablet TAKE 1 TABLET BY MOUTH EVERY DAY, Disp: , Rfl: nitroglycerin (Nitrostat) 0.4 mg SL tablet, DISSOLVE 1 TABLET IN MOUTH NEEDED, Disp: , Rfl: pioglitazone (Actos) 15 mg tablet, pioglitazone 15 mg tablet TAKE 1 TABLET BY MOUTH EVERY DAY FOR 90 DAYS, Disp: , Rfl: pregabalin (Lyrica) 100 mg capsule, Take 100 mg by mouth in the morning and at bedtime., Disp: , Rfl: simvastatin (Zocor) 40 mg tablet, TAKE 1 TABLET BY MOUTH EVERYDAY AT BEDTIME, Disp: , Rfl: SITagliptin phosphate (Januvia) 100 mg tablet, Januvia 100 mg tablet TAKE 1/2 TABLET BY MOUTH DAILY, Disp: , Rfl: sodium bicarbonate 650 mg tablet, sodium bicarbonate 650 mg tablet TAKE 2 TABLETS BY MOUTH 3 TIMES A DAY, Disp: , Rfl: tiZANidine (Zanaflex) 4 mg tablet, tizanidine 4 mg tablet TAKE 1 TABLET BY MOUTH EVERY DAY AT BEDTIME, Disp: , Rfl: venlafaxine (Effexor) 37.5 mg tablet, venlafaxine 37.5 mg tablet TAKE 1 TABLET BY MOUTH TWICE A DAY, Disp: , Rfl: Physical Exam Constitutional: Appearance: Normal appearance. He is obese. HENT: Head: Normocephalic and atraumatic. Right Ear: External ear normal. Left Ear: External ear normal. Eyes: Extraocular Movements: Extraocular movements intact. Pupils: Pupils are equal, round, and reactive to light. Neck: Vascular: No carotid bruit. Cardiovascular: Rate and Rhythm: Normal rate and regular rhythm. Pulses: Normal pulses. Heart sounds: Normal heart sounds. Pulmonary: Effort: Pulmonary effort is normal. Breath sounds: Normal breath sounds. Abdominal: General: Bowel sounds are normal. Palpations: Abdomen is soft. Musculoskeletal: General: Normal range of motion. Cervical back: Neck supple. Right lower le+ Pitting Edema present. Left lower leg: No edema. Skin: General: Skin is warm and dry. Neurological: General: No focal deficit present. Mental Status: He is alert and oriented to person, place, and time. Psychiatric: Mood and Affect: Mood normal. Behavior: Behavior normal. Thought Content: Thought content normal. Judgment: Judgment normal. Labs/Testing/Procedures: Labs 11/08/22 CBC: hgb 13.8, plt 189 CMP: Cr. 1.32, BUN 23, GFR 53, K 4.2, ALT 42, AST 26 NTproBNP: 122 Labs 04/07/22 CBC: hgb 13.3, plt 184 CMP: Cr. 1.15, BUN 26, K 4.2, G (more content not included)...[facility]02-17-2023 NotePatient here for 6 mo follow up CAD, hypertension, and hyperlipidemia. He had routine labs 2 weeks ago, and had NARAYAN's in Jul 2022. He is now seeing a garage manager and a diabetic specialist at [facility]. Says his MILLER is unchanged from prior visit in March 2022. Has RLE, which he said has been there since his toes were amputated 4+ years ago. Sometimes gets a left-sided chest pain, almost under his armpit. Says he doesn't think it's his heart but it scares him. Review of Systems Cardiovascular: Positive for dyspnea on exertion and leg swelling. Respiratory: Positive for cough. Musculoskeletal: Positive for arthritis, back pain and joint pain. All other systems reviewed and are negative.[facility] 11-24-2022 Evaluation note* Encounter Date Diagnosis Assessment Notes Treatment Notes Treatment Clinical Notes Nov, Obesity, unspecified classification, unspecified obesity type, 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 serious comorbidity present (ICD-10 - E66.9) Nov, BMI 40.0-44.9, adult (ICD-10 - Z68.41) Nov, Other Summary of Visi t: (A) Reviewed topics from previous RD visits (B) Extensively reviewed the plate method (C) Emphasized volume through vegetables Patient set the following goals: 1) Increase vegetables at dinner [facility] Other 02-14-2023 Evaluation note* Encounter Date Diagnosis Assessment Notes Treatment Notes Treatment Clinical Notes Nov, Type 2 diabetes mellitus with hyperglycemia, without long-term current use of insulin (ICD-10 - E11.65) Dong came in today for download and evaluation of his baylee report. He wore a sample Baylee 2 for 2 weeks. His average BG was 171, 69% in range, 0% low, 30% high and 1% very high. His BG stays between 150 and 180 most of the time. His biggest giancarlo is that he does not like most vegetables and has a habit of eating Ice cream at lunch most days. We discussed trying to reduce his carbs and not eat the Ice cream every day. He going to see The dietitian this . He does not want to start SS insulin at this time and therefor does not want to continue the baylee for now. 75 minutes were spent evaluating the patient's report and discussing it with him and his by Kamlesh Sparrow RN, [facility]. Reviewed cgm download 11/08/22-11/20/22: Avg glucose 171. >250-1%, >180-30%, 70-180-69%, <70-0%, <540%. CV 15..2%. 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-C, BC-ADM [facility] Other 02-10-2023 Evaluation note* Encounter Date Diagnosis Assessment Notes Treatment Notes Treatment Clinical Notes Nov, Abnormal weight gain (ICD-10 - R63.5) Nov, Hypertension (ICD-10 - I10) Nov, Mixed hyperlipidemia (ICD-10 - E78.2) Nov, CAD (coronary artery disease) (ICD-10 - I25.10) Nov, Type 2 diabetes mellitus with hyperglycemia, without long-term current use of insulin (ICD-10 - E11.65) Nov, MEDEIROS (nonalcoholic steatohepatitis) (ICD-10 - K75.81) Nov, BMI 40.0-44.9, adult (ICD-10 - Z68.41) Nov, Albuminuria (ICD-10 - R80.9) Nov, Foot pain (ICD-10 - M79.673) Nov, Neuropathy (ICD-10 - G62.9) Nov, Metabolic syndrome X (ICD-10 - E88.81) [facility] Other 01-30-2023 Evaluation note* Encounter Date Diagnosis Assessment Notes Treatment Notes Treatment Clinical Notes Oct, Type 2 diabetes mellitus with hyperglycemia, without long-term current use of insulin (ICD-10 - E11.65) Type 2 diabetes material was printed 1. Uncontrolled, a Type 2 diabetes with A1c of 7.6% 2. Blood glucose levels above target. Pt admits to being less active and eating more sweets over the holidays. Discussed with pt increasing acarbose from 25 to 50mg ac tid. Discussed with pt wearing sample cgm, pt agreeable. Reviewed with pt target fasting am/meal to meal glucose 90/130 for improved glycemia. Note pt has intolerance to glp1 class of medications, metformin. Cost barrier for use of sglt2. 3. Patient is alert, oriented and receptive to making changes or counseling. Notes: Seen for 45 minutes for an assessment of current glucose pattern, changes in treatment plan, counseling and coordination of care related to diabetes, risks, and benefits of treatment, medications, and side effects. TOPICS REVIEWED: 1. Time was spent reviewing: a. Basic concepts of diabetes, progressive beta cell , concepts of basal/bolus/correct liza insulin requirements. b. Nutrition: Concepts of healthy diet, encouraged to decrease saturated fat in diet and increase non-starchy vegetables and fruits in diet. BMI: Pt. needs to select one small change to decrease caloric intake or increase physical activity to help decrease weight. c. Correct treatment of hypoglycemia, carry a glucose source at all times on your person, in vehicles, and at bedside. Can use glucose tablets/4, four ounces of pop or juice equal to 15 G of carbohydrate. Blood glucose should be 100 mg/dl or higher when driving. d. ADA glucose goals for age and medical complexity reviewed e. Patient questions addressed 2. Activity/exercise: Encouraged to start any form of physical activity. Start low level and increase slowly to a minimal goal of 150 minutes/week. Limit activity to what is allowed by other issues such as cardiac, pulmonary or orthopedic restrictions. 3. Standards of care: Reminded to have an annual dilated eye exam, A1C every 3 months, urine testing for microalbumin once/year, check feet daily and report any cuts or sores that do not appear to be healing. 4. Meter: Plan to check blood glucose: Please check blood glucose levels 1 time/day. Back to back meals reveal effectiveness of bolus dosing. The Blood glucose data is used to determine insulin doses, and confirm symptoms for hypoglycemia and hyperglcyemia. 5. [facility] Contact office if any issues or concerns with patterns of hypoglycemia, hyperglycemia, or diabetes medication issues. 6. Prescriptions: Acarbose sent to [facility]. Sample baylee 2 cgm given today. 7. Prescriptions will not be filled unless you are compliant with follow up appointments or have a follow up appointment scheduled as ordered by your provider. Refills should be requested at the time of your visit. 8. F/u 2 weeks with DE for cgm download. Oct, Hyperlipidemia, unspecified hyperlipidemia type (ICD-10 - E78.5) High cholesterol material was printed 03/2022 ldl 58.4. at target; trig 163 - on statin Oct, Hypertension, unspecified type (ICD-10 - I10) About hypertension material was printed on arb- uncontrolled- f/u with pcp for further recommendation Oct, Dietary counseling and surveillance (ICD-10 - Z71.3) Eat a diet rich in fruits and vegetables material was printed see above Oct, Albuminuria (ICD-10 - R80.9) 04/29 m/a cr ratio 70 reviewed importance of glucose/bp control to prevent further nephropathy Oct, BMI 40.0-44.9, adult (ICD-10 - Z68.41) Heart healthy diet material was printed Pt reports has apt scheduled with Dr. Kelley for weight management Oct, Blaise Umana was giv en a sample Baylee 2 sensor and an office owned, [employer] [place]. His phone was not compatible with Baylee 2 or 3, or Dexcom G6. He previously wore the Baylee 14 day system and did not need training on applying the device. I did train him on the use of the reader. He was vgiven samples of Grif Pipe Bowls Paint Trimmer and Skin Tac to help keep the device in place. 45 minutes were spent educating the patient by Kamlesh Sparrow RN, [facility]. [facility] Other 01-10-2023 Evaluation note* Encounter Date Diagnosis Assessment Notes Treatment Notes Treatment Clinical Notes Oct, Other Summary of Visi t: (A) reviewed the plate method (B) discussed various ways to incorporate more vegetables (C) small, manageable changes Other Info: -discussed how to roast vegetables and make them taste good; patient has been trying them raw-try blending up zucchini and putting it in spaghetti sauce -blood sugars have been high because of tristin-encouraged flavoring vegetables to be good (keeping sodium in mind)-suggested frozen veggies to save time-doesn't like paperwork so didn't go to dr. kelley appointment; willing to try it-has no willpower anymore; interested in a medication that will take away some cravings-tried zero sugar melanie's chocolate candy; discussed how zero sugar doesn't mean zero carb and that it will still impact his blood sugar Patient set the following goals: 1) Sign up for full weight management program2) Try roasted cronin peppers (recipe provided) [facility] Other 11-11-2022 NotePROCEDURE: XR FOOT RT MIN 3 VIEWS HISTORY: Pain in right foot ; chronic pain of third toe COMPARISON: None. FINDINGS: BONES:Amputation of the distal phalanx of the first toe and the entire second toe. Moderate degenerative joint disease of the first metatarsophalangeal joint and marked degenerative joint disease of the midfoot. Medial angulation and medial subluxation of the third and fourth distal interphalangeal joints and fifth proximal interphalangeal joint. Prior resection of head of fifth proximal phalanx. Large calcaneal plantar spur. Mild flattening of plantar arch. SOFT TISSUES:No visible soft tissue swelling. EFFUSION:None visible. OTHER: Negative. IMPRESSION: 1. Remote surgical changes and multifocal moderate-marked degenerative joint disease. No prior studies for comparison. 2. Medial subluxation and angulation of the third toe distal interphalangeal joint which may contribute to patient's symptoms. Electronically authenticated by: BRITTNY MORALES Date: 2022-08-19 06:17[facility]11-02-2022 Evaluation note* Encounter Date Diagnosis Assessment Notes Treatment Notes Treatment Clinical Notes Aug, Other Summary of Visi t: (A) reviewed plate method; try to eat based on plate method (B) discussed ways to incorporate more vegetables (C) try to hide vegetables in foods like spaghetti sauces Relevant Information:-Wishes he liked different foods but he doesn't-Not willing to like to try new foods -Exercise: used to exercise, walking, riding bike, picks up sticks and leaves in the yard-Has a lot of aches and pains; difficult to walk-Potentially will see Saira; have Saira call him (joining the [facility] program 09/05)-Tired all the time-LOVES nuts; buys $75 of nuts when at [employer] -At night either eats nuts or cheese + crackers -Only likes vincentian cheese,-Recommended 15g or less for snacks; so 10 crackers instead of the 20 crackers he is eating-Frozen mixed vegetables -Patient adamant that if he doesn't eat a full plate of pasta or a full plate of BBQ chiclken that he will starve and have nothing else to eat -Monday night they have frozen pizza (has gone from 3 pieces to 2 pieces); encouraged adding a salad to keep him full Patient set the following goals: -Eat 10 crackers at evening snack instead of 20 crackers-Add green beans because he likes those-Increase vegetable intake-Vegetables: corn, peas, carrots [facility] Other 10-19-2022 Evaluation note* Encounter Date Diagnosis Assessment Notes Treatment Notes Treatment Clinical Notes Jul, Type 2 diabetes mellitus with hyperglycemia, without long-term current use of insulin (ICD-10 - E11.65) Type 2 diabetes material was printed 1. Uncontrolled, a Type 2 diabetes with A1c of 7.2% 2. Blood glucose levels improved. Reviewed with pt target fasting am/meal to meal glucose 90/130 for improved glycemia. Pt admits to being a picky eater , recommend further discussion with RD at upcoming apt to assist with healthy meal plan for improved postprandial glycemia. Reviewed with pt if cost barrier to use of sglt2 and a1c next visit >7% will recommend starting on basal insulin. Pt verbalizes understanding. Note pt has intolerance to glp1 class of medications, metformin. Cost barrier for use of sglt2. 3. Patient is alert, oriented and receptive to making changes or counseling. Notes: Seen for an assessment of current glucose pattern, changes in treatment plan, counseling and coordination of care related to diabetes, risks, and benefits of treatment, medications, and side effects. TOPICS REVIEWED: 1. Time was spent reviewing: a. Basic concepts of diabetes, progressive beta cell , concepts of basal/bolus/correc tive insulin requirements. b. Nutrition: Concepts of healthy diet, encouraged to decrease saturated fat in diet and increase non-starchy vegetables and fruits in diet. BMI: Pt. needs to select one small change to decrease caloric intake or increase physical activity to help decrease weight. c. Correct treatment of hypoglycemia, carry a glucose source at all times on your person, in vehicles, and at bedside. Can use glucose tablets/4, four ounces of pop or juice equal to 15 G of carbohydrate. Blood glucose should be 100 mg/dl or higher when driving. d. ADA glucose goals for age and medical complexity reviewed e. Patient questions addressed 2. Activity/exercise: Encouraged to start any form of physical activity. Start low level and increase slowly to a minimal goal of 150 minutes/week. Limit activity to what is allowed by other issues such as cardiac, pulmonary or orthopedic restrictions. 3. Standards of care: Reminded to have an annual dilated eye exam, A1C every 3 months, urine testing for microalbumin once/year, check feet daily and report any cuts or sores that do not appear to be healing. 4. Meter: Plan to check blood glucose: Please check blood glucose levels 1 time/day. Back to back meals reveal effectiveness of bolus dosing. The Blood glucose data is used to determine insulin doses, and confirm symptoms for hypoglycemia and hyperglcyemia. 5. [facility]. Contact office if any issues or concerns with patterns of hypoglycemia, hyperglycemia, or diabetes medication issues. 6. Prescriptions: Will call when needed. 7. Prescriptions will not be filled unless you are compliant with follow up appointments or have a follow up appointment scheduled as ordered by your provider. Refills should be requested at the time of your visit. Jul, Hyperlipidemia, unspecified hyperlipidemia type (ICD-10 - E78.5) High cholesterol material was printed 03/2022 ldl 58.4. at target; trig 163 - on statin Jul, Hypertension, unspecified type (ICD-10 - I10) About hypertension material was printed on arb Jul, Dietary counseling and surveillance (ICD-10 - Z71.3) Eat a diet rich in fruits and vegetables material was printed see above Jul, Albuminuria (ICD-10 - R80.9) 04/29 m/a cr ratio 70 reviewed importance of glucose/bp control to prevent further nephropathy Jul, BMI 40.0-44.9, adult (ICD-10 - Z68.41) Heart healthy diet material was printed Pt agreeable to referral to Dr. Kelley for weight management [place] [facility] Other 08-31-2022 Evaluation note* Encounter Date Diagnosis Assessment Notes Treatment Notes Treatment Clinical Notes May, Other Summary of Visi t: (A) Discussed importance of a balanced plate and including non-carbohydrate foods like protein and vegetables with meals (B) Discussed ways to decrease carbohydrates without eliminating foods (portion sizes) (C) Discussed how many carbs to aim for for meals (45-60 g) Relevant Info -Was told not to eat green beans for kidney stones but doesn't know why. Told him to check with his doctor and to tell me at next visit -Last dietitian gave him 60 g /carb per meal limit. Encourged the same. -Patient was very adamant that he cannot and will not eat less than a full plate of pasta if it is his meal-Encouraged patient to use his exercise bike at home on nights he eats full plates of pasta -Has ice cream almost every day after lunch. He checks his blood sugar 5 hours later and it is always fine. Because of this, he doesn't see a problem with eating the ice cream. Discussed saturated fat and why heart healthy fats are important for diabetes and why non-heart healthy fats can have negative health effects especially for diabetes -Patient has a baylee but doesn't use it because it was expensive and annoying -Likes some fruits but was told he can't have them. Encouraged him that it is ok to eat fruits but to pair them with a source of protein to help lessen blood glucose spikes.-Patient's was at visit but it is unclear if she is willing to cook differently for him -He said at the end of visit that his idea of what we would do today was that he would get a list of foods that he could eat and his would cook it for him [facility] Other 07-14-2022 Evaluation note* Encounter Date Diagnosis Assessment Notes Treatment Notes Treatment Clinical Notes Apr, Type 2 diabetes mellitus with hyperglycemia, without long-term current use of insulin (ICD-10 - E11.65) Type 2 diabetes material was printed 1. Uncontrolled, a Type 2 diabetes with A1c of 7.6% 2. Blood glucose levels above target. Recommend increasing januvia from 50mg to 100mg dialy. Reviewed again today lower glycemic food choices for improved glycemia. Reduce higher glycemic i.e. breads, pasta, processed foods for improved glycemia. Pt would likek referral to garage manager. Note pt has intolerance to glp1 class of medications, metformin. Cost barrier for use of sglt2. Pt with hx metatarsal amputations right foot. 3. Patient is alert, oriented and receptive to making changes or counseling. Notes: Seen for an assessment of current glucose pattern, changes in treatment plan, counseling and coordination of care related to diabetes, risks, and benefits of treatment, medications, and side effects. TOPICS REVIEWED: 1. Time was spent reviewing: a. Basic concepts of diabetes, progressive beta cell , concepts of basal/bolus/correc tive insulin requirements. b. Nutrition: Concepts of healthy diet, encouraged to decrease saturated fat in diet and increase non-starchy vegetables and fruits in diet. BMI: Pt. needs to select one small change to decrease caloric intake or increase physical activity to help decrease weight. c. Correct treatment of hypoglycemia, carry a glucose source at all times on your person, in vehicles, and at bedside. Can use glucose tablets/4, four ounces of pop or juice equal to 15 G of carbohydrate. Blood glucose should be 100 mg/dl or higher when driving. d. ADA glucose goals for age and medical complexity reviewed e. Patient questions addressed 2. Activity/exercise: Encouraged to start any form of physical activity. Start low level and increase slowly to a minimal goal of 150 minutes/week. Limit activity to what is allowed by other issues such as cardiac, pulmonary or orthopedic restrictions. 3. Standards of care: Reminded to have an annual dilated eye exam, A1C every 3 months, urine testing for microalbumin once/year, check feet daily and report any cuts or sores that do not appear to be healing. 4. Meter: Plan to check blood glucose: Please check blood glucose levels 1 time/day. Back to back meals reveal effectiveness of bolus dosing. The Blood glucose data is used to determine insulin doses, and confirm symptoms for hypoglycemia and hyperglcyemia. 5. [facility] Contact office if any issues or concerns with patterns of hypoglycemia, hyperglycemia, or diabetes medication issues. 6. Prescriptions: None needed. 7. Referral to RD Apr, Hyperlipidemia, unspecified hyperlipidemia type (ICD-10 - E78.5) High cholesterol material was printed 03/2022 ldl 58.4. at target; trig 163 - on statin Apr, Hypertension, unspecified type (ICD-10 - I10) About hypertension material was printed on arb Apr, Dietary counseling and surveillance (ICD-10 - Z71.3) Eat a diet rich in fruits and vegetables material was printed see above Apr, BMI 39.0-39.9,adult (ICD-10 - Z68.39) Heart healthy diet material was printed 4 pound weight loss from last visit, continue with weight loss efforts Apr, Albuminuria (ICD-10 - R80.9) 04/29 m/a cr ratio 70 reviewed importance of glucose/bp control to prevent further nephropathy [facility] Other 01-13-2022 Evaluation note* Encounter Date Diagnosis Assessment Notes Treatment Notes Treatment Clinical Notes Oct, Type 2 diabetes mellitus with hyperglycemia, without long-term current use of insulin (ICD-10 - E11.65) Type 2 diabetes material was printed 1. Controlled, a Type 2 diabetes with A1c of 6.6% 2. Blood glucose levels are improved. Reviewed again today lower glycemic food choices for improved glycemia. Reduce higher glycemic i.e. breads, pasta, processed foods for improved glycemia. Note: D/t cost of medication pt is taking januvia 100mg tablet half tablet daily. If glucose begins to run above target will need to increase dose to 100mg once daily. Note pt has intolerance to glp1 class of medications, metformin. Cost barrier for use of sglt2. Pt with hx metatarsal amputations right foot. 3. Patient is alert, oriented and receptive to making changes or counseling. Notes: Seen for an assessment of current glucose pattern, changes in treatment plan, counseling and coordination of care related to diabetes, risks, and benefits of treatment, medications, and side effects. TOPICS REVIEWED: 1. Time was spent reviewing: a. Basic concepts of diabetes, progressive beta cell , concepts of basal/bolus/correc tive insulin requirements. b. Nutrition: Concepts of healthy diet, encouraged to decrease saturated fat in diet and increase non-starchy vegetables and fruits in diet. BMI: Pt. needs to select one small change to decrease caloric intake or increase physical activity to help decrease weight. c. Correct treatment of hypoglycemia, carry a glucose source at all times on your person, in vehicles, and at bedside. Can use glucose tablets/4, four ounces of pop or juice equal to 15 G of carbohydrate. Blood glucose should be 100 mg/dl or higher when driving. d. ADA glucose goals for age and medical complexity reviewed e. Patient questions addressed 2. Activity/exercise: Encouraged to start any form of physical activity. Start low level and increase slowly to a minimal goal of 150 minutes/week. Limit activity to what is allowed by other issues such as cardiac, pulmonary or orthopedic restrictions. 3. Standards of care: Reminded to have an annual dilated eye exam, A1C every 3 months, urine testing for microalbumin once/year, check feet daily and report any cuts or sores that do not appear to be healing. 4. Meter: Plan to check blood glucose: Please check blood glucose levels 1 time/day. Back to back meals reveal effectiveness of bolus dosing. The Blood glucose data is used to determine insulin doses, and confirm symptoms for hypoglycemia and hyperglcyemia. 5. [facility]. Contact office if any issues or concerns with patterns of hypoglycemia, hyperglycemia, or diabetes medication issues. 6. Prescriptions: Pioglitazone sent to [facility]. Oct, Hyperlipidemia, unspecified hyperlipidemia type (ICD-10 - E78.5) High cholesterol material was printed 04/2021 ldl 41.8. at target trig. 249 on statin Oct, Hypertension, unspecified type (ICD-10 - I10) About hypertension material was printed controlled Oct, Dietary counseling and surveillance (ICD-10 - Z71.3) Eat a diet rich in fruits and vegetables material was printed see above Oct, BMI 40.0-44.9, adult (ICD-10 - Z68.41) Heart healthy diet material was printed Discussed with pt referral to weight management, brochure given today. Recommend call if interested. [facility] Other 10-13-2021 Evaluation note* Encounter Date Diagnosis Assessment Notes Treatment Notes Treatment Clinical Notes Jul, MEDEIROS (nonalcoholic steatohepatitis) (ICD-10 - K75.81) Jul, Other [facility] INDICATED ABOVE F/U HERE PRN [facility] Other Evaluation noteNo InformationNort Kwanji Other Evaluation noteNo assessment information available [facility] Work Phone: [facility] general Narrative - Reported* Type Description Date Medical History DM II Medical History CAD with 4 stents Medical History Hyperlipidemia Medical History HTN Surgical History carpal tunnel right Surgical History ingrown toenails Surgical History foot surgery x3 Surgical History colonoscopy x 2 Surgical History kidney stones removed Surgical History heart surgery and 03-28 13 Surgical History prostate Surgical History AMPUTATION second me tatarsal and partial right first metatarsal 11-16-18 Hospitalization History see above [facility] Other [facility] general Narrative - Reported* Type Description Date Medical History DM II Medical History CAD with 4 stents Medical History Hyperlipidemia Medical History HTN Surgical History carpal tunnel right Surgical History ingrown toenails Surgical History foot surgery x3 Surgical History colonoscopy x 2 Surgical History kidney stones removed Surgical History heart surgery and 03-28 13 Surgical History prostate Surgical History AMPUTATION second me tatarsal and partial right first metatarsal 11-16-18 Surgical History Foot Surgery 10/27/2021 Hospitalization History see above [facility] Other [facility]ish[facility] general Narrative - Reported* Type Description Date Medical History DM II Medical History CAD with 4 stents Medical History Hyperlipidemia Medical History HTN Medical History heartburn Medical History sleep apnea Medical History fatigue Medical History Arthritis Medical History back pain Surgical History carpal tunnel right Surgical History ingrown toenails Surgical History foot surgery x3 Surgical History colonoscopy x 2 Surgical History kidney stones removed Surgical History heart surgery and 03-28 13 Surgical History prostate Surgical History AMPUTATION second me tatarsal and partial right first metatarsal 2-05-27 Surgical History Foot Surgery 10/27/2021 Hospitalization History see above [facility] Other Summary Purpose Family History No Family History Records FoundNo Family History Records FoundNo Family History Records FoundNo Family History Records FoundNo Family History Records Found Advance Directives No Advanced Directives Records Found Advance Directive Response Recorded Date/ Time Advance Directives No December 13 10:47am Chief Complaint and Reason for Visit Chief Complaint e11.65 I83.811 Additional Source Comments REASON FOR VISIT (unrecogniz ed section and content) PATIENT HERE AT THE REQUEST OF DR JOHNSON FOR LEFT SIDED ABDOMINAL PAIN, ABNORMAL CT SCAN AND HEPATIC STEATOSIS6 month Follow up, Type 2 NIDDM f/u with 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-C, BC-ADMlab resultsDM 6 month follow up, Type 2 NIDDM f/u with 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-C, BC-ADMDM dieticianDM 3 month F/U, Type 2 NIDDM f/u with 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- C, BC-ADM2nd DM visitDM 3rd visit (1st of the year)DM 3 month follow up, Type 2 NIDDM f/u with 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-C, BC-ADMWMN initialcgm DownloadNo InformationWMN Dr Alston/URGeorgiana WM f/uDM 3 month follow up, Type 2 NIDDM f/u with 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-C, BC-ADM2 month Follow uporder for baylee 3 reader/sensorsInsulin pen trainingTKM Insulin pen questionsReferred by Dr. Everett Miner for stasis ulcer right legDM 3 month follow up, Type 2 IDDM f/u with 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-C, BC-ADMlab resultlab result (unrecognized sect ion and content) No Status Records FoundNo Status Records FoundNo Status Records FoundNo Status Records FoundNo Status Records Found INFORMATION SOURCE (unrecogn ized section and content) DATE CREATED AUTHOR 02/20/2023 [facility] DATE CREATED AUTHOR AUTHOR'S ORGANIZ ATION 07/03/2023 [facility] DATE CREATED AUTHOR AUTHOR'S ORGANIZ ATION 09/12/2023 [facility] DATE CREATED AUTHOR AUTHOR'S ORGANIZ ATION [facility]20[facility] DATE CREATED AUTHOR AUTHOR'S ORGANIZ ATION 10/18/[address] [facility] Care Teams (unrecognized sec tion and content) Team Status: Active Member Role Status Dates Scarlet Johnson MD Primary Care Provider Active Team Status: Inactive Member Role Status Dates Scarlet Johnson MD Primary Care Provider Active Eligio Soni MD Attending Provider Active Team Status: Active Member Role Status Dates Daniel Everett MD Attending Provider Active Scarlet Johnson MD Primary Care Provider Active Goals (unrecognized section and content) Goals may be documented in a n alternate section FOR RECORDS PERTAINING TO PATIENTS WHO ARE OR HAVE BEEN ENROLLED IN A CHEMICAL DEPENDENCY/SUBSTANCEABUSE PROGRAM, SOME INFORMATION MAY BE OMITTED. This clinical summary was aggregated from multiple sources. Caution should be exercised in using it in the provision of clinical care. This summary normalizes information from multiple sources, and as a consequence, information in this document may materially change the coding, format and clinical context of patient data. In addition, data may be omitted in some cases. CLINICAL DECISIONS SHOULD BE BASED ON THE PRIMARY CLINICAL RECORDS. [employer] provides no warranty or guarantee of the accuracy or completeness of information in this document.
--- NOTE | 2023-10-27 09:36 | XR_ITS ---
[address] [address] Patient Name: LUISITO WHITMORE MRN: [id number] date: 1950 Sex: M Assigned Patient Location: RAD Current Patient Location: [facility] Accession/Order Number: [id number] Exam Date: 10/27/2023 09:40 Report Date: 10/27/2023 09:57 At the request of: DEJON JARA Procedure: XR foreign body eye EXAMINATION: XR foreign body eye HISTORY: Foreign Body Eye COMPARISON: No relevant comparison available. FINDINGS: ORBITS: Negative for a metallic foreign body. OTHER: Negative. XR/XR foreign body eye IMPRESSION: No metallic foreign body in the orbits Electronically authenticated by: MORGAN BLUE Date: 10/27/2023 09:57
--- NOTE | 2023-10-27 09:36 | MR_ITS ---
[address] [address] Patient Name: LUISITO WHITMORE MRN: [facility]:[id number] date: 1950 Sex: M Assigned Patient Location: [facility] Current Patient Location: [facility] Accession/Order Number: [id number] Exam Date: 10/27/2023 10:00 Report Date: 10/27/2023 11:07 At the request of: DEJON JARA Procedure: MR lumbar spine wo con EXAMINATION: MR lumbar spine wo con HISTORY: Lumbar Stenosis COMPARISON: 09/17/2018 TECHNIQUE: A variety of imaging planes and parameters were utilized for visualization of suspected pathology. FINDINGS: For the purposes of numbering, sagittal T2 image # 8 extends from the T11 vertebral body superiorly to the S4 level inferiorly. PARASPINAL AREA: Normal with no visible mass. BONES: Normal alignment with no acute fracture or spondylolisthesis. Chronic anterior wedging of the T11-T12 and L1 vertebral bodies. Moderately heterogeneous marrow signal with Modic 2 changes of the L2-L4 vertebral bodies. Moderate to severe diffuse degenerative spondylosis and facet osteoarthropathy. CORD/CAUDA EQUINA: Normal caliber, contour, and signal intensity. DISC LEVELS: 12-L1: Moderate degenerative disc disease is present without visible neural impingement. L1-L2: Moderate degenerative disc disease is present without visible neural impingement. L2-L3: Asymmetric disc space narrowing moderate on the right, severe on the left. Moderate diffuse disc/osteophyte complex with posterior broad-based disc herniation the protrusion type extending up to 5.5 mm on the right 4 mm posterior centrally. Ligament flavum hypertrophy and facet osteoarthropathy. Moderate trefoil narrowing of the central canal best seen on axial image #18. No right foraminal stenosis. Moderate left foraminal stenosis L3-L4: Mild to severe disc space narrowing right greater than left with endplate sclerosis. Moderate diffuse disc/osteophyte complex with posterior central disc herniation the protrusion type extending up to 5 mm. Severe ligamentum flavum hypertrophy and facet osteoarthropathy. Moderate to severe trefoil narrowing of the central canal. Mild right and no left foraminal stenosis L4-L5: Disc collapse. Moderate to severe diffuse disc/osteophyte complex and ligamentum flavum hypertrophy and facet osteoarthropathy. No central canal stenosis. Mild bilateral foraminal stenosis. L5-S1: Moderate to severe disc space narrowing. Mild to moderate disc/osteophyte complex. No central canal or right foraminal stenosis. Mild narrowing of the left neural foramen MR/MR lumbar spine wo con IMPRESSION: Significant progression of degenerative changes. Extensive degenerative changes now identified resulting in central and foraminal stenosis at multiple levels as detailed above Electronically authenticated by: MORGAN BLUE Date: 10/27/2023 11:07
== END 2023-10-27 09:29 | disposition home or self-care (01) ==
LOC: RAD 09:28
PROVIDERS: PCP Family Medicine; Visit Provider Nurse Practitioner
DX: M48.061 Spinal stenosis, lumbar region without neurogenic claudication (principal); M51.36 Other intervertebral disc degeneration, lumbar region
CPT/HCPCS: 70030; 72148

== ENCOUNTER 2023-10-31 08:55 | Outpatient (OUT) | payer MEDICARE, OTHER, SELFPAY ==
--- NOTE | 2023-10-31 08:58 | US_ITS ---
The [address] [address] Patient Name: LUISITO WHITMORE MRN: [id number] date: 1950 Sex: M Assigned Patient Location: Current Patient Location: [place] Accession/Order Number: [id number] Exam Date: 10/31/2023 09:00 Report Date: 10/31/2023 10:14 At the request of: ARACELI ROME Procedure: US renal BI EXAM: Renal ultrasound HISTORY: Calculus Of Kidney N28.1, Cyst Of Kidney N28.1 . COMPARISON: None. TECHNIQUE: Grayscale and color imaging was performed FINDINGS: Scanning of the right kidney demonstrates right kidney measured 13.5 x 5.4 x 6.9 cm. Color-flow is noted. There is a 8 mm nonobstructing calculus involving the upper pole of the right kidney. No hydronephrosis is noted. No solid renal cortical masses are noted. Left kidney measures 11.3 x 5.3 x 4.1 cm. Color-flow is noted. There is a 10 mm x 15 mm cyst involving the upper pole of the right kidney. There is a 5 mm nonobstructing calculus noted involving the left kidney. No hydronephrosis is noted. Scanning of the bladder demonstrates a bladder volume to be 41 cc. Grossly no masses are noted. US/US renal BI IMPRESSION: 1. 8 mm nonobstructing right renal calculus. No hydronephrosis. 2. 5 mm nonobstructing left renal calculus along with a 15 mm simple cyst involving the left kidney. No hydronephrosis. 3. The bladder is grossly unremarkable. Electronically authenticated by: MORGAN AGUILAR Date: 10/31/2023 10:14
--- OUTSIDE RECORDS SUMMARY | 2023-10-31 08:59 | XMS_ITS | CCD ---
Author Name Unknown Address [address] [place] [address] Organization [facility] Care Team Providers Care Sagger Preparer Name Role Phone Morgan Kunz Unavailable Aldo [...] MARY JOHNSON Attending Unavailable Eligio Soni Unavailable [phone] MD Daniel Everett Attending Provider MD Scarlet Johnson Primary Care Provider MD Eligio Soni Attending Provider Eligio Soni Admitting UnavailEligio Patel Attending UnavailScarlet Valerio Primary Care Unavailable Terry Kelley Attending Unavailable Scarlet Johnson Primary Care Unavailable Terry Kelley Admitting Unavailable Daniel Everett Admitting Unavailable Daniel Everett Attending Unavailable Scarlet Johnson Primary Care Unavailable MD Everett Miner Attending Unavailable MD Everett Miner Attending Unavailable MD Everett Miner Attending Unavailable MD Everett Miner Attending Unavailable CHARMIANE Barajas Attending Unavailable MD Everett Miner Attending [...] Cefuroxime; Translations: [CEFUROXIME] Drug Allergy 06-09-20 Unknown [facility] Repository (20 sources) celecoxib; Translations: [CELECOXIB] Drug Allergy 06-09-20 Unknown [facility] Repository (20 sources) Diflunisal; Translations: [DIFLUNISAL] Drug Allergy 06-09-20 Unknown [facility] Repository (20 sources) dulaglutide Drug Allergy Unknown, g/i [employer] Other (20 sources) Ibuprofen Drug Allergy Unknown [employer] Other (20 sources) liraglutide; Translations: [LIRAGLUTIDE] Drug Allergy 11-25-19 23 stomach upset [facility] Repository (20 sources) metFORMIN; Translations: [METFORMIN] Drug Allergy 06-09-20 21 stomach upset [facility] Repository (20 sources) Naproxen; Translations: [NAPROXEN] Drug Allergy 06-09-20 Unknown [facility] Repository (20 sources) Sulindac; Translations: [Clinoril] Drug Allergy 07-10-20 15 Unknown [facility] Repository (1 source) Cefuroxime Drug Allergy 07-13-20 16 [facility] Repository (2 sources) celecoxib; Translations: [CeleBREX] Drug Allergy 07-10-20 15 [facility] Repository (2 sources) liraglutide; Translations: [Victoza] Drug Allergy [facility] Repository (1 source) metFORMIN Drug Allergy 06-15-20 17 [facility] Repository (2 sources) Naproxen; Translations: [Naprosyn] Drug Allergy 07-10-20 15 [facility] Repository (2 sources) NSAIDs; Translations: [NSAIDS (NON-STEROIDAL ANTI-INFLAMMATORY DRUG)] Drug allergy (disorder) 07-10-20 15 [facility] Repository (2 sources) Povidone-Iodine; Translations: [Dolobid] Drug Allergy 07-10-20 15 [facility] Repository (1 source) rofecoxib; Translations: [ROFECOXIB] Drug Allergy 06-09-20 21 [facility] Repository (1 source) Sulindac; Translations: [SULINDAC] Drug Allergy 06-09-20 21 [facility] Repository (2 sources) Cephalosporins (Antibiotic); Translations: [cephalosporins] Drug allergy (disorder) 05-29-20 18 [facility] Repository (1 source) Cefuroxime; Translations: [Cefuroxime Axetil] Drug Allergy [facility] Repository (1 source) dulaglutide; Translations: [Trulicity] Drug Allergy [facility] Repository (1 source) Niacin; Translations: [niacin] Drug Allergy [facility] Repository (1 source) NSAIDs; Translations: [NSAIDs] Propensity to adverse reactions (disorder) [facility] Repository (1 source) rofecoxib; Translations: [Vioxx] Drug Allergy [facility] Repository Medications Current Medications Medication Drug [...] Nitro Sublingual 0.4 Sublingual As Directed Active [place] 3-Sri-Ksq-Fish Oil (Fish Oil) 1,000 mg (120 mg-180 mg) Capsule (1 source) Start: 05-29-20 18 [place] 1-Hvm-Ahb-Fish Oil (Fish Oil) 1,000 mg (120 mg-180 [...] day Active take 2 tablets by mo [facility] every twenty-four hours Pioglitazone HCl 15 MG [...] Orally once a day Active FreeStyle Baylee Blessing - (7 sources) FreeStyle Baylee Blessing - use with baylee sensor SQ daily [...] Coronary arteriosclerosis; 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] Onset: 11-25-2022 [...] deficiency, unspecified] Chronic Other aftercare (1 source) MCFP (current) use of aspirin; Translations: [ALF CURRENT USE OF ASPIRIN] Onset: 02-20-2023 Episodic Other aftercare (1 source) Other long-term (current) drug therapy; Translations: [OTH ALF CURRENT DRUG THERAPY] Onset: 02-20-2023 Episodic Other aftercare (6 sources) Long-term current use of insulin; Translations: [MCFP (current) use of insulin] Episodic Other aftercare (1 source) 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 Review of Systems PHQ Score [...] with voice recognition artificial intelligence software, specifically [employer], [employer] and or Dragon Ambient Experience. Substitutions may have occurred due to the inherent limitations of voice recognition and artificial intelligence software. ATTESTATION: Documentation services were performed after patient or guardian consented to allow [employer] to record this visit. HEMANTH inventory specialist and provider reviewed before signing. HEMANTH: [...] under fluo (more content not included)... Normal [facility] Comment on above: Result Comment: Elec [...] SCHUSTER, Araceli Treadwell Where: [facility] Invalid Interpretation Code [address] [place] [address]- \.br \ Monday 9:30 AM EDT \.br\ With:\.br\ Where: [facility] Consultation Noteon 09-18-20 Consultation Note [id number]#1.00T IFF Normal [facility] A1C with Estimated Average G luon 09-11-2023 HbA1c (Bld) [Mass fraction] 6.900 % High 4.3-5.6 % [employer] [facility] [employer] Other HbA1c (Bld) [Mass fraction] 151 mg/dL [employer] [facility] [employer] Other Glucose [Mass/Vol] 151 mg/dL Normal [facility] Comment on above: Order Comment: Reaso n for 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 Result Comment: Incr eased risk for diabetes: 5.7 - 6.4 diabetes: >6.4 glycemic control for adults with diabetes: <7.0 Performed By: #### A 1C [facility] eA #### [facility] [address] [id number] [facility] Glucose - FINGER STICKon Glucose [Mass/Vol] 138 mg/dL [facility] [employer] Other Consultation Noteon 09-06-20 Consultation Note [id number]#1.00TI FF Normal [facility] Consultation Noteon 08-28-20 Consultation Note [id number]#1.00TI FF Normal [facility] US UNI ankle/arm indiceson 1 10-24-2022 US UNI ankle/arm indices [facility] [address] [place] [id number] Ultrasound Report Signed Patient: Dong Whitmore MR#: [id number] : 1950 Acct:[id number] Age/Sex: 73 / M ADM Date: 08/24/23 Loc: [facility] Room: Type: REG CLI Attending Dr: Eligio [...] Eligio Soni MD08/24/2023 3:31 PM Dictation Location: [place] [address] Tech: Britney Sotelo Transcribed By: CIRO 08/24/23 1531 Dictated By: Eligio Soni MD 08/24/23 1530 Signed By: 08/24/23 1531 Normal [facility] US venous duplex LE RTon US venous duplex LE RT [facility] Main [address] [address] Ultrasound Report Signed Patient: Dong Whitmore MR#: [id number] : 1950 Acct:[id number] Age/Sex: 73 / M ADM Date: 08/24/23 Loc: [facility] Room: Type: REG CLI Attending Dr: Eligio [...] Eligio Soni MD08/24/2023 3:31 PM Dictation Location: [place] [address] Tech: Coby Gibson Transcribed By: CIRO 08/24/23 1531 Dictated By: Eligio Soni MD 08/24/23 1531 Signed By: 08/24/23 1531 [facility] Ambulatory Visit Summaryon 1 10-21-2022 Ambulatory Visit [...] EST With: Kristofer SCHUSTER, Everett Bee Where: [facility] Invalid Interpretation Code [address], [address] [place] [address]- \.br \ Monday 9:30 AM EDT \.br\ With:\.br\ Where: [facility] Family Medicine Office/Clini c Noteon 08-21-2023 [...] kidney d (more content not included)... Normal [facility] Comment on above: Result Comment: Elec [...] oz glass (more content not included)... Normal [facility] Pre-Visit Planningon 023 Pre-Visit Planning - From: Ceci Yu To: Kristofer SCHUSTER, Everett Bee; Sent: 08/17/2023 10:44:28 EST Subject: Pre-Visit Planning Due Date/Time: 08/17/2023 10:44:00 EST Caller Name: DONG WHITMORE; Caller Number: H , B [phone] Id Dr. Miner. During a pre-visit planning chart [...] feel free to contact me at extension [phone]. Thank you! Ceci Yu LPN Invalid Interpretation Code [address] [facility] Consultation Noteon 08-10-20 Consultation Note [id number]#1.00T IFF Normal [facility] Family Medicine Office/Clini c Noteon 07-26-2023 [...] continue to monitor along. Ordered: A1c POC 97396 Body Mass Index (BMI) documented 3008F Current [...] disease) - As above Ordered: A1c POC 89757 Body Mass Index (BMI) documented 3008F Current [...] stage 3a) - Stable Ordered: A1c POC 05266 Body Mass Index (BMI) documented 3008F Current [...] - No new issues Ordered: A1c POC 75402 Body Mass Index (BMI) documented 3008F Current [...] - BMI education given Ordered: A1c POC 61031 Body Mass Index (BMI) documented 3008F Current [...] last ye (more content not included)... Normal [facility] Comment on above: Result Comment: Elec [...] numbers. This can be done either in Micronesian (U.S[place] or metric measurements. Note that charts and online BMI calculators are available to help you find your BMI quickly and easily without having to do these calculations yourself. To calculate your BMI in Micronesian (U.S.) measurements: 1. Measure your weight in [...] for Disease Control and Prevention: www.cdc.gov ? [place] Heart Association: www.heart.org ? National Heart, Lung, and Blood [place]: www.nhlbi.nih.gov Summary ? Body mass index (BMI) is a number that is calculated from a person's weight and height. ? BMI may help estimate how much of a person's weight is composed of fat. BMI can help identify those who may be at higher risk for certain medical problems. ? BMI can be measured using Micronesian measurements or metric measurements. ? BMI charts are used to identify whether you are underweight, normal weight, overweight, or obese. This information is not intended to replace advice given to you by your health care provider. Make sure you discuss any questions you have with your health care provider. Document Revised: 06/17/2020 Document Reviewed: 04/24/2020 [employer] Patient Education ? 2022 [employer]. [facility] Physician Referralon 023 Physician Referral [id number]#1.00 TIFF [facility] Pre-Visit Planningon 023 Pre-Visit Planning - From: Ceci Yu To: Everett Miner MD; Sent: 07/24/2023 15:20:33 EDT Subject: Pre-Visit Planning Due Date/Time: 07/24/2023 15:20:00 EDT Caller Name: DONG WHITMORE; Caller Number: H , B [phone] Id Dr. Miner. During a pre-visit planning chart [...] feel free to contact me at extension [phone]. Thank you! Ceci Yu LPN From: Kristofer SCHUSTER, Everett Bee To: Ceci Yu; Sent: 07/24/2023 16:58:10 EDT Subject: RE: Pre-Visit Planning Caller Name: DONG WHITMORE; Caller Number: H , B [phone] OK to add the first one. Thank you Normal [address] [place] [address] Consultation Noteon 07-19-20 Consultation Note [id number]#1.00T IFF Normal [facility] Operative Reporton Operative Report [id number]#1.00T IFF Normal [facility] Consultation Noteon 07-03-20 Consultation Note [id number] [id number]#1.00CD :127 [facility] Nursing Note - Woundon 06-28 Nursing Note - Wound [id number]#2.00 CD:127 [facility] Physician Referralon 023 Physician Referral [id number] [id number]#1.00CD :127 [facility] Consent for Procedure/Surger yon 06-26-2023 Consent for Procedure/Surgery [id number]#1.00C D:127 [facility] Consent for Treatmenton 06-09 Consent for Treatment [id number]#1.00C D:127 [facility] Multi-Wound Charton 06-26-20 Multi-Wound Chart [id number]#1.00 CD:127 [facility] Nursing Assessment - Woundon 06-26-2023 Nursing Assessment - Wound [id number]#1.00 CD:127 [facility] Physician Orderon 06-26-2023 Physician Order [id number]#1.00 CD:127 [facility] Progress Note - Woundon 06-09 Progress Note - Wound [id number]#1.00 CD:127 [facility] Office Visiton 06-21-2023 Follow-up visit [id number] Carlos Whitmore 1950 M Date Provider Department Center 06/21/2023 Varun8-ELAINE FISH[facility] Family History Problem Relation Age of Onset Coronary artery disease Other Diabetes Other Family Status - Relation Status Age at Other Level of Service:03826 [place] OFFICE/OUTPATIENT ESTABLISHED MOD MDM 30-39 MIN Normal [facility] Operative Reporton 3 Operative Report [id number]#1.00CD :127 Normal [facility] Operative Reporton 3 Operative Report [id number]#1.00C D:127 Normal [facility] Consultation Noteon 05-27-20 23 Consultation Note [id number]#1.00C D:127 Normal [facility] Nursing Assessment - Woundon 05-17-2023 Nursing Assessment - Wound [id number]#1.00 CD:127 Normal [facility] Family Medicine Office/Clini c Noteon 05-16-2023 [...] : Living will, Medical durable power of criminal defense attorney Patient Wishes to Receive Further Information [...] Last Reviewed Dt/Tm: 05/10/2023 09:27:20 EDT Location: [facility] ; Anesthesia Minutes: 0 ; Procedure Name: [...] 09:27:20 EDT Pr (more content not included)... [facility] Comment on above: Result Comment: Elec tronically Signed By: Kristofer SCHUSTER, Everett Bee\.br\Date and Time Signed: 05/16/23 13:31 EDT\.br\Electronically Co-Signed By: Conrad Yoon.br\Date and Time Co-Signed: 05/10/23 11:00 EDT Auth for Release of Medical Recordson 05-15-2023 Auth for Release of Medical Records [id number]#1.00C D:127 [facility] Consent for Procedure/Surger yon 05-15-2023 Consent for Procedure/Surgery [id number]#1.00C D:127 [facility] Consent for Treatmenton Consent for Treatment [id number]#1.00C D:127 [facility] Consent to Photographon Consent to Photograph [id number] D:127 [facility] Correspondence - Woundon Correspondence - Wound [id number]#1.00C D:127 [facility] Correspondence - Wound [id number]#1.00C D:127 [facility] Nursing Assessment - Woundon 05-15-2023 Nursing Assessment - Wound [id number]#1.00C D:127 [facility] Nursing Note - Woundon 05-15 Nursing Note - Wound [id number]#1.00 CD:127 Normal [facility] Physician Orderon 05-15-2023 Physician Order [id number]#1.00 CD:127 Normal [facility] Progress Note - Woundon 08-0 Progress Note - Wound [id number]#1.00 CD:127 Normal [facility] Ambulatory Visit Summaryon 0 05-10-2023 Ambulatory [...] EDT With: Shawnee SCHUSTER, Kaleb Bee Where: [facility] Monday 2:20 PM EDT With: Everett Miner MD Where: [facility] Invalid Interpretation Code [address] [facility], [address] [place] [address]- \.br \ Monday 9:30 AM EDT \.br\ With:\.br\ Where: [facility] CMPon 05-10-2023 Albumin [Mass/Vol] 4.0 g/dL Normal 3.3-5.0 [facility] Comment on above: Performed By: #### 2 163170, 5551116, [id number] ####[facility] [address] [place] [address] Albumin/Globulin (S) [Mass conc ratio] 1.2 Normal 1.1-2.2 [facility] Comment on above: Performed By: #### 2 357905, 9742576, 52908214 ####[facility] [address] [place] [address] ALP [Catalytic activity/Vol] 66 Int._Unit/L Normal 21-98 [facility] Comment on above: Performed By: #### 2 365532, 3299623, 13526225 ####[facility] [address] [place] [address] ALT No additional P-5'-P [Catalytic activity/Vol] 25 Int._Unit/L Normal 6-46 [facility] Comment on above: Performed By: #### 2 501884, 0254742, 53944993 ####[facility] [address] [place] [address] Anion gap [Moles/Vol] 11 mmol/L Normal 6-16 [facility] Comment on above: Performed By: #### 2 463285, 6027725, 79412695 ####[facility] [address] [place] [address] AST [Catalytic activity/Vol] 26 Int._Unit/L Normal 5-43 [facility] Comment on above: Performed By: #### 2 238439, 8165673, [id number] ####[place] [address] [place] [address] Bilirubin [Mass/Vol] 0.3 mg/dL Normal 0.0-1.1 [facility] Comment on above: Performed By: #### 2 768700, 3338482, 93750123 ####[facility] [address] [place] [address] Calcium [Mass/Vol] 9.2 mg/dL Normal 8.9-11.1 [facility] Comment on above: Performed By: #### 2 108909, 0508003, 74263086 ####[facility] [address] [place] [address] Chloride [Moles/Vol] 107 mmol/L Normal 101-111 [facility] Comment on above: Performed By: #### 2 009213, 1403181, 52622861 ####[facility] [address] [place] [address] CO2 [Moles/Vol] 23 mmol/L Normal 21-31 [facility] Comment on above: Performed By: #### 2 859925, 0819329, 48262633 ####[facility] [address] [place] [address] Creatinine [Mass/Vol] 1.3 mg/dL Normal 0.5-1.3 [facility] Comment on above: Performed By: #### 2 682920, 7825394, 37375320 ####[facility] [address] [place] [address] Globulin (S) [Mass/Vol] 3.2 g/dL Normal 1.4-4.0 [facility] Comment on above: Performed By: #### 2 553397, 3331393, 33823964 ####[facility] [address] [place] [address] Glucose [Mass/Vol] 137 mg/dL Normal 55-199 [facility] Comment on above: Result Comment: If t his glucose result represents a fasting glucose, interpretation should refer to the following reference range: 55-99 mg/dL Performed By: #### 2 614003, 0741858, [id number] ####[facility] [address] [place] [address] Potassium [Moles/Vol] 4.0 mmol/L Normal 3.5-5.3 [facility] Comment on above: Performed By: #### 2 275526, 3627838, 72160564 ####[facility] [address] [place] [address] Protein [Mass/Vol] 7.2 g/dL Normal 6.0-7.8 [facility] Comment on above: Performed By: #### 2 704355, 9472467, 21561708 ####[facility] [address] [place] [address] Sodium [Moles/Vol] 137 mmol/L Normal 135-145 [facility] Comment on above: Performed By: #### 2 866128, 8876813, 83638204 ####[facility] [address] [place] [address] Urea nitrogen [Mass/Vol] 32 mg/dL High 5-21 [facility] Comment on above: Performed By: #### 2 528074, 1209217, 54662044 ####[facility] [address] [place] [address] Urea nitrogen/Creatinin e [Mass ratio] 25 No Units High 10-20 [facility] Comment on above: Performed By: #### 2 577444, 5346150, 25545300 ####[facility] [address] [facility] [place] [address] Lipid Panelon 05-10-2023 Cholesterol [Mass/Vol] 129 mg/dL Normal 120-200 [facility] Comment on above: Performed By: #### 2 960344, 7066879, 60544977 ####[facility] [address] [place] [address] Cholesterol in HDL [Mass/Vol] 34 mg/dL Invalid Interpretation Code [facility] Comment on above: Result Comment: HDL > or equal to 60 mg/dL: Low cardiovascular risk HDL < 40 mg/dL : High cardiovascular risk Performed By: #### 2 660445, 9266855, 02117203 ####[facility] [address] [place] [address] Cholesterol in LDL [Mass/Vol] 63 mg/dL Normal <=129 [facility] Comment on above: Performed By: #### 2 483430, 5957111, 85573838 ####[facility] [address] [place] [address] Cholesterol in VLDL [Mass/Vol] 33 mg/dL Normal 7-40 [facility] Comment on above: Performed By: #### 2 986356, 7129158, 54844700 ####[facility] [address] [place] [address] Triglyceride [Mass/Vol] 164 mg/dL High <=149 [facility] Comment on above: Performed By: #### 2 350767, 7907993, 29938258 ####[facility] [address] [facility] [place] [address] Patient Educationon 05-10-20 23 Patient Education Caregiving [...] night-lights. ? Place frequently used items in zwvk-ka-vibif places. Lower the shelves around your home [...] the way. ? Do not use floor argentine or wax that makes floors slippery. If [...] include working with a physical therapist or show dog trainer to improve your strength, balance, and endurance. Where to find more information ? Centers for Disease Control and Prevention, STE[place]: www.cdc.gov ? National [place] on Aging: www.keena.nih.gov Contact a health care [...] health ca (more content not included)... Normal [facility] Screenson 05-10-2023 Screens [id number] D:127 Normal [facility] U Microalbon 05-10-2023 Albumin DL <= 20 mg/L (U) [Mass/Vol] 57.4 microgram/mL High 0.0-19.0 [facility] Comment on above: Performed By: #### 1 [id number], [id number] #### [facility] Laboratory [address] [place] [address] U Protein/Creat Ratioon Albumin Elph (U) [Mass fraction] 20.8 mg/dL Invalid Interpretation Code [facility] Comment on above: Result Comment: The reference range and other method performance specifications have not been established for this test; results should be integrated into the clinical context for interpretation. Performed By: #### 1 [id number], [id number] ####[facility] [address] [place] [address] Creatinine (U) [Mass/Vol] 130.1 mg/dL Invalid Interpretation Code [facility] Comment on above: Result Comment: The reference range and other method performance specifications have not been established for this test; results should be integrated into the clinical context for interpretation. Performed By: #### 1 [id number], [id number] ####[facility] [address] [place] [address] U Prot/Creat Ratio 159.90 mg/gm Cr Normal .00-200.00 [facility] Comment on above: Performed By: #### 1 [id number], [id number] ####[facility] [address] [place] [address] eGFRon 05-10-2023 GFR/1.73 sq M.predicted among non-blacks MDRD (S/P/Bld) [Vol rate/Area] 58 mL/min/1.73 m2 Low >=59 [facility] Comment on above: Order Comment: Order added by Discern Expert. Result Comment: [employer] Mdm Architect hai kidney disease could be indicated at eGFR's of less than 60 mL/min/1.73m2. Kidney failure is indicated at less than 15 mL/min/1.73m2. Performed By: #### 2 [id number] ####[facility] [address] [place] [address] Family Medicine Office/Clini c Noteon 05-01-2023 Family [...] few polyps PSA: due covid: UTD recent [id number] recent isabela-9 Acute: Current issues/complaints: discuss issues [...] has been to Dr. Aguilar, his regular special forces weapons sergeant. He thinks not by taking the toe [...] most of his life. He sees a sofa cover inspector. He last saw them a couple of [...] years since he has carried them. His director software quality assurance ordered his lab work. He is supposed [...] his blood sugars under control with his director software quality assurance. 5. Chronic bilateral low back pain without sciatica (M54. (more content not included)... Normal [facility] Comment on above: Result Comment: Elec tronically Signed By: Everett Miner MD\.br\Date and Time Signed: 05/01/23 11:27 EDT\.br\Electronically Co-Signed By: Dahiana Berg.br\Date and Time Co-Signed: 04/27/23 17:48 EDT Physician Referralon 023 Physician Referral [id number] CD:127 Normal [facility] Physician Referral [id number] CD:127 Normal [facility] Ambulatory Visit Summaryon 0 04-27-2023 Ambulatory [...] Appointments Monday 9:20 AM EDT With: Where: [facility] Invalid Interpretation Code [address] [place] [address]- \.br \ Monday 2:20 PM EDT \.br\ With: Kristofer SCHUSTER, Everett Bee\.br\ Where: [facility] Ambulatory Visit Summaryon 0 03-14-2023 Ambulatory [...] Appointments Monday 9:20 AM EDT With: Where: [facility] Invalid Interpretation Code [address] [place] [address]- \.br \ Monday 8:15 AM EST \.br\ With: LATRICIA SCHUSTER, Araceli Treadwell\.br\ Where: [facility] Family Medicine Office/Clini c Noteon 03-14-2023 Family Medicine Office/Clinic Note Chief Complaint pt here to establish care HPI Staff establish care Establish Care: History: HTN, Diabetes Last provider: Dr Johnson Any recent labs: 11/08/2022 weeks ago [facility] Specialist: Door Frame Builder Melissa Lopez in [place], special forces weapons sergeant Health Maintenance UTD: Colonoscopy: 1.5- 2 years ago few polyps other villarreal normal PSA: 04/07/22 Acute: Current issues/complaints: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 Having problems sleeping hurts the worst at night at time ca be 10/10. Hand Surgeon has told him there isn't anything they [...] year 4. 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 Normal [facility] Comment on above: Result Comment: Elec tronically Signed By: Nanette Do\Date and Time Signed: 03/14/23 11:03 EDT 36on 03-08-2023 36 Please let him know his kidney function is stable. Continue current medications. Follow-up as planned in 3 months. Thank you [facility] [place] [facility] A1C HEMOGLOBINon 02-14-2023 HbA1c (Bld) [Mass fraction] 7.6 % [employer] Other Glucose - FINGER STICKon Glucose [Mass/Vol] 215 mg/dL [employer] Other HbA1c (Bld) [Mass fraction]o n 02-14-2023 A1C HEMOGLOBIN [facility] Other 36on 02-13-2023 36 BP higher than goal of <130/90. Recommend increasing his losartan to 75mg daily (1.5 tablets of his current Rx) with follow-up BMP in 2 weeks. Thanks [facility] [place] [facility] 36on 01-23-2023 36 . [facility] Office Visiton 01-23-2023 Follow-up visit [id number] Carlos Whitmore 1950 M Date Provider Department Center 01/23/2023 [facility]ARY GRIFFIN [facility] Family History Problem Relation Age of Onset Coronary artery disease Other Diabetes Other Family Status - Relation Status Age at Other Level of Service:[address] [place] OFFICE/OUTPATIENT ESTABLISHED MOD MDM 30-39 MIN Reason for Visit and Comments: Cardiac Stress Test [489] [facility] [place] [facility] Telephoneon 01-23-2023 Telephone [id number] Carlos Whitmore 1950 M Date Provider Department Center 01/23/2023 PAPITO BROWN Family History Problem Relation Age of Onset Coronary artery disease Other Diabetes Other Family Status - Relation Status Age at Other [facility] [place] [facility] 36on 01-06-2023 36 Patient stopped by t he office during lunch hour and spoke with Yarelis from the [facility] cardiac rehab. He wanted stress and echo [...] he needs RX for BP cuff. Normal [facility] Telephoneon 01-06-2023 Telephone [id number] Carlos Whitmore 1950 M Date Provider Department Center 01/06/2023 MARY GRIFFIN [facility] Family History Problem Relation Age of Onset Coronary artery disease Other Diabetes Other Family Status - Relation Status Age at Other Normal [facility] ECHOCARDIO M/2D COMPLETEon 0 12-30-2022 ECHOCARDIO M/2D COMPLETE Patient: DONG WHITMORE. Exam Date: 12/30/2022 : 1950 Gender:M Ordering : [facility] Admission #: [id number] Family : Order #: [id number] CLICK HERE TO VIEW EXAM ECHOCARDIOGRAM REPORT [...] Thibodeaux M.D. on 12/30/2022 at 18:49 Normal [facility] NM STRESS/REST MULTIon 12-29 NM STRESS/REST MULTI Patient: DONG WHITMORE Exam Date: 12/29/2022 : 1950 Gender:M Ordering : [facility] Admission #: [id number] Family : Order #: [id number] CLICK HERE TO VIEW EXAM RADIOLOGY REPORT [...] Morales M.D. on 12/30/2022 at 09:41 Normal [facility] US MAMI DOP LEG RTon 12-09-19 23 [...] by: MORGAN ROJO Date: 2022-12-08 16:15 Normal [facility] Office Visiton 11-25-2022 Follow-up visit [id number] Carlos Whitmore 1950 M Date Provider Department Center 11/25/2022 [facility]RIFFIN [facility] Family History Problem Relation Age of Onset Coronary artery disease Other Diabetes Other Family Status - Relation Status Age at Other Level of Service:44263 [place] OFFICE/OUTPATIENT ESTABLISHED HIGH MDM 40-54 MIN Reason for Visit and Comments: Coronary Artery Disease [187] Hypertension [365011] Hyperlipidemia [182] Normal [facility] TSHon 11-25-2022 TSH 2.370 uIU/mL Normal 0.358-3.740 [facility] Comment on above: Performed By: #### T SH #### [facility] [address] [place] [address] Dr. Eli Jarvis BNPon 11-08-2022 Natriuretic peptide B (Bld) [Mass/Vol] 122.0 pg/mL Normal <=900.0 [facility] Comment on above: Performed By: #### C MP, BNP #### [facility] [address] [place] [address] Dr. Eli Jarvis CBC AUTO DIFFon 11-08-2022 BASO # 0.1 103/ul Normal 0.0-0.1 [facility] Comment on above: Performed By: #### C BC ####[facility] [address] [place] [address]Dr. Eli Jarvis Basophils/100 WBC (Bld) 0.7 % Normal 0.2-2.0 [facility] Comment on above: Performed By: #### C BC ####[facility] [address] [place] [address]DrSuzie Jarvis EO # 0.2 103/ul Normal 0.0-0.7 [facility] Comment on above: Performed By: #### C BC ####[facility] [address] [place] [address]DrSuzie Jarvis Eosinophils/100 WBC (Bld) 3.5 % Normal 0.9-7.0 [facility] Comment on above: Performed By: #### C BC ####[facility] [address] [place] [address]Dr. Eli Jarvis Erythrocyte distribution width (RBC) [Ratio] 13.8 % Normal 11.0-15.0 [facility] Comment on above: Performed By: #### C BC ####[facility] [address] [place] [address]Dr. Eli Jarvis Hematocrit (Bld) [Volume fraction] 42.0 % Normal 42.0-54.0 [facility] Comment on above: Performed By: #### C BC ####[facility] [address] [place], [place] [address]Dr. Eli Jarvis Hemoglobin (Bld) [Mass/Vol] 13.8 g/dL Critically low 14.0-18.0 [facility] Comment on above: Performed By: #### C BC ####[facility] [address] [place], [place] [address]Dr. Eli Matheus IG # 0.03 10e3/ul Normal 0.00-0.03 [facility] Comment on above: Performed By: #### C BC ####[facility] [address] [place], [place] [address]Dr. Eli Jarvis IG % 0.4 % Normal 0.0-0.5 [facility] Comment on above: Performed By: #### C BC ####[facility] [address] [place], [place] [address]Dr. Eli Jarvis LYMPH # 1.3 103/ul Normal 1.2-3.8 [facility] Comment on above: Performed By: #### C BC ####[facility] [address] [place], [place] [address]Dr. Sparklealine Jarvis Lymphocytes/100 WBC (Bld) 18.8 % Critically low 20.5-60.0 [facility] Comment on above: Performed By: #### C BC ####[facility] [address] [place], [place] [address]Dr. Sparklealine Jarvis MANUAL DIFF REQ NO Normal [facility] Comment on above: Performed By: #### C BC ####[facility] [address] [place] [address]Dr. Eli Jarvis MCH (RBC) [Entitic mass] 27.8 pg Normal 25.9-34.0 [facility] Comment on above: Performed By: #### C BC ####[facility] [address] [place] [address]Dr. Eli Jarvis MCHC (RBC) [Mass/Vol] 32.9 g/dL Normal 29.9-35.2 [facility] Comment on above: Performed By: #### C BC ####[facility] [address] [place], [place] [address]Dr. Eli Jarvis MCV (RBC) [Entitic vol] 84.7 fL Normal 80.0-94.0 [facility] Comment on above: Performed By: #### C BC ####[facility] [address] [place], [place] [address]Dr. Eli Matheus MONO # 0.6 103/ul Normal 0.3-0.8 [facility] Comment on above: Performed By: #### C BC ####[facility] [address] [place], [place] [address]Dr. Eli Matheus Monocytes/100 WBC (Bld) 8.5 % Normal 1.7-12.0 [facility] Comment on above: Performed By: #### C BC ####[facility] [address] [place], [place] [address]Dr. Eli Jarvis NEUT # 4.7 103/ul Normal 1.4-6.5 [facility] Comment on above: Performed By: #### C BC ####[facility] [address] [place], [place] [address]Dr. Eli Matheus Neutrophils/100 WBC (Bld) 68.1 % Normal 43.0-75.0 [facility] Comment on above: Performed By: #### C BC ####[facility] [address] [place], [place] [address]Dr. Eli Matheus Platelet mean volume (Bld) [Entitic vol] 10.3 fL Normal 9.5-13.5 [facility] Comment on above: Performed By: #### C BC ####[facility] [address] [place], [place] [address]Nz. Eli Jarvis PLT 189 103/ul Normal 150-450 [facility] Comment on above: Performed By: #### C BC ####[facility] [address] [place] [address]Dr. Eli Jarvis RBC 4.96 106/ul Normal 4.70-6.10 [facility] Comment on above: Performed By: #### C BC ####[facility] [address] [place] [address]Dr. Eli Jarvis WBC 7.0 103/ul Normal 4.0-11.0 [facility] Comment on above: Performed By: #### C BC ####[facility] [address] [place] [address]DrSuzie Jarvis PROF 14(COMP METB)on 023 Albumin [Mass/Vol] 3.6 g/dL Normal 3.4-5.0 [facility] Comment on above: Performed By: #### C MP, BNP #### [facility] [address] [place] [address] Dr. Eli Jarvis Albumin/Globulin [Mass ratio] 1.1 {ratio} Normal [facility] Comment on above: Performed By: #### C MP, BNP #### [facility] [address] [place] [address] [address] Eli Jarvis ALP [Catalytic activity/Vol] 90 U/L Normal 46-116 [facility] Comment on above: Performed By: #### C MP, BNP #### [facility] [address] [place] [address] [address] Eli Jarvis ALT [Catalytic activity/Vol] 42 U/L Normal 16-63 [facility] Comment on above: Performed By: #### C MP, BNP #### [facility] [address] [place] [address] [address] Eli Jarvis Anion gap [Moles/Vol] 13.5 mmol/L Normal [facility] Comment on above: Performed By: #### C MP, BNP #### [facility] [address] [place] [address] [address] Eli Jarvis AST [Catalytic activity/Vol] 26 U/L Normal 15-37 [facility] Comment on above: Performed By: #### C MP, BNP #### [facility] [address] [place] [address] Dr. Eli Jarvis Bilirubin [Mass/Vol] 0.4 mg/dL Normal 0.2-1.0 [facility] Comment on above: Performed By: #### C MP, BNP #### [facility] [address] [place] [address] Dr. Eli Jarvis Calcium [Mass/Vol] 9.3 mg/dL Normal 8.5-10.1 [facility] Comment on above: Performed By: #### C MP, BNP #### [facility] [address] [place] [address] Dr. Eli Jarvis Chloride [Moles/Vol] 104 mmol/L Normal 98-107 [facility] Comment on above: Performed By: #### C MP, BNP #### [facility] [address] [place] [address] Dr. Eli Jarvis CO2 [Moles/Vol] 25.7 mmol/L Normal 21.0-32.0 [facility] Comment on above: Performed By: #### C MP, BNP #### [facility] [address] [place] [address] Dr. Eli Jarvis Creatinine [Mass/Vol] 1.32 mg/dL Critically high 0.70-1.30 [facility] Comment on above: Performed By: #### C MP, BNP #### [facility] [address] [place] [address] Dr. Eli Jarvis EGFR-AF AUSTRIAN >60 Normal >=60 [facility] Comment on above: Performed By: #### C MP, BNP #### [facility] [address] [place] [address] Dr. Eli Jarvis EGFR-NON AF AUSTRIAN 53 mL/min/1.73m2 Critically low >=60 [facility] Comment on above: Performed By: #### C MP, BNP #### [facility] [address] [address] [address] Eli Jarvis Globulin (S) [Mass/Vol] 3.3 g/dL Normal [facility] Comment on above: Performed By: #### C MP, BNP #### [facility] [address] [address] [address] Eli Jarvis Glucose [Mass/Vol] 154 mg/dL Critically high 74-106 [facility] Comment on above: Performed By: #### C MP, BNP #### [facility] [address] [address] [address] Eli Jarvis Potassium [Moles/Vol] 4.2 mmol/L Normal 3.5-5.1 [facility] Comment on above: Performed By: #### C MP, BNP #### [facility] [address] [place] [address] Dr. Eli Jarvis Protein [Mass/Vol] 6.9 g/dL Normal 6.4-8.2 [facility] Comment on above: Performed By: #### C MP, BNP #### [facility] [address] [address] [address] Eli Jarvis Sodium [Moles/Vol] 139 mmol/L Normal 136-145 [facility] Comment on above: Performed By: #### C MP, BNP #### [facility] [address] [place] [address] Dr. Eli Jarvis Urea nitrogen [Mass/Vol] 23.0 mg/dL Critically high 7.0-18.0 [facility] Comment on above: Performed By: #### C MP, BNP #### [facility] [address] [place] [address] Dr. Eli Jarvis Urea nitrogen/Creatinin e [Mass ratio] 17.4 mg/mg Normal [facility] Comment on above: Performed By: #### C MP, BNP #### [facility] [address] [place] [address] Dr. Eli Jarvis A1C HEMOGLOBINon 11-07-2022 HbA1c (Bld) [Mass fraction] 7.6 % [employer] Other Glucose - FINGER STICKon Glucose [Mass/Vol] 172 mg/dL [employer] Other HbA1c (Bld) [Mass fraction]o n 11-07-2022 A1C HEMOGLOBIN [employer] Other US KIDNEYSon 2022 US KIDNEYS EXAMINATION: [...] by: MORGAN ROJO Date: 2022 18:30 Normal [facility] A1C HEMOGLOBINon 07-27-2022 HbA1c (Bld) [Mass fraction] 7.2 % [employer] Other Glucose - FINGER STICKon Glucose [Mass/Vol] 160 mg/dL [employer] Other HbA1c (Bld) [Mass fraction]o n 07-27-2022 A1C HEMOGLOBIN [employer] Other A1C HEMOGLOBINon 04-21-2022 HbA1c (Bld) [Mass fraction] 7.6 % [employer] Other Glucose - FINGER STICKon Glucose [Mass/Vol] 184 mg/dL [employer] Other HbA1c (Bld) [Mass fraction]o n 04-21-2022 A1C HEMOGLOBIN [employer] Other [employer] Creat Ratio,Uon Albumin DL <= 20 mg/L (U) [Mass/Vol] 10.0196281 mg/dL High 0.0-1.8 mg/dL [employer] Other Albumin/Creatinine DL <= 20 mg/L (U) [Mass ratio] 70.718063 mg/g High 0.0-30.0 mg/g [employer] Other Creatinine (U) [Mass/Vol] 854.9270050 mg/dL [employer] Other CBC AUTO DIFFon 04-07-2022 BASO # 0.0 103/ul Normal 0.0-0.1 [facility] Comment on above: Performed By: #### C BC #### [facility] [address] [place] [address] Dr. Eli Jarvis Basophils/100 WBC (Bld) 0.6 % Normal 0.2-2.0 [facility] Comment on above: Performed By: #### C BC #### [facility] [address] [place] [address] Dr. Eli Jarvis EO # 0.2 103/ul Normal 0.0-0.7 [facility] Comment on above: Performed By: #### C BC #### [facility] [address] [place] [address] Dr. Eli Jarvis Eosinophils/100 WBC (Bld) 2.9 % Normal 0.9-7.0 [facility] Comment on above: Performed By: #### C BC #### [facility] [address] [place] [address] Dr. Eli Jarvis Erythrocyte distribution width (RBC) [Ratio] 13.8 % Normal 11.0-15.0 [facility] Comment on above: Performed By: #### C BC #### [facility] [address] [place] [address] Dr. Eli Jarvis Hematocrit (Bld) [Volume fraction] 40.7 % Critically low 42.0-54.0 [facility] Comment on above: Performed By: #### C BC #### [facility] [address] [address] [address] Eli Jarvis Hemoglobin (Bld) [Mass/Vol] 13.3 g/dL Critically low 14.0-18.0 [facility] Comment on above: Performed By: #### C BC #### [facility] [address] [address] [address] Eli Jarvis IG # 0.04 10e3/ul Critically high 0.00-0.03 [facility] Comment on above: Performed By: #### C BC #### [facility] [address] [place] [address] Dr. Eli Jarvis IG % 0.6 % Critically high 0.0-0.5 [facility] Comment on above: Performed By: #### C BC #### [facility] [address] [place] [address] Dr. Eli Jarvis LYMPH # 1.3 103/ul Normal 1.2-3.8 [facility] Comment on above: Performed By: #### C BC #### [facility] [address] [place] [address] Dr. Eli Jarvis Lymphocytes/100 WBC (Bld) 18.7 % Critically low 20.5-60.0 [facility] Comment on above: Performed By: #### C BC #### [facility] [address] [place] [address] Dr. Eli Jarvis MANUAL DIFF REQ NO Normal [facility] Comment on above: Performed By: #### C BC #### [facility] [address] [place] [address] Dr. Eli Jarvis MCH (RBC) [Entitic mass] 28.1 pg Normal 25.9-34.0 [facility] Comment on above: Performed By: #### C BC #### [facility] [address] [place] [address] Dr. Eli Jarvis MCHC (RBC) [Mass/Vol] 32.7 g/dL Normal 29.9-35.2 [facility] Comment on above: Performed By: #### C BC #### [facility] [address] [address] [address] Eli Jarvis MCV (RBC) [Entitic vol] 86.0 fL Normal 80.0-94.0 [facility] Comment on above: Performed By: #### C BC #### [facility] [address] [address] [address] Eli Jarvis MONO # 0.4 103/ul Normal 0.3-0.8 [facility] Comment on above: Performed By: #### C BC #### [facility] [address] [address] [address] Eli Jarvis Monocytes/100 WBC (Bld) 6.2 % Normal 1.7-12.0 [facility] Comment on above: Performed By: #### C BC #### [facility] [address] [place] [address] Dr. Eli Jarvis NEUT # 4.9 103/ul Normal 1.4-6.5 [facility] Comment on above: Performed By: #### C BC #### [facility] [address] [place] [address] Dr. Eli Jarvis Neutrophils/100 WBC (Bld) 71.0 % Normal 43.0-75.0 [facility] Comment on above: Performed By: #### C BC #### [facility] [address] [place] [address] Dr. Eli Jarvis Platelet mean volume (Bld) [Entitic vol] 9.9 fL Normal 9.5-13.5 [facility] Comment on above: Performed By: #### C BC #### [facility] [address] [place] [address] Dr. Eli Jarvis PLT 184 103/ul Normal 150-450 [facility] Comment on above: Performed By: #### C BC #### [facility] [address] [place] [address] Dr. Eli Jarvis RBC 4.73 106/ul Normal 4.70-6.10 [facility] Comment on above: Performed By: #### C BC #### [facility] [address] [place], [place] [address] Dr. Eli Jarvis WBC 6.9 103/ul Normal 4.0-11.0 [facility] Comment on above: Performed By: #### C BC #### [facility] [id number] Eli Jarvis LIPID PROFILEon 04-07-2022 CHOL-HDL RATIO NORM SEE BELOW Normal [facility] Comment on above: Result Comment: 3.3 - 4.4 LOW RISK 4.4 - 7.1 AVERAGE RISK 7.1 - 11.0 MODERATE RISK >11.0 HIGH RISK Performed By: #### C MP, LIPID ####[facility] [address] [place] [id number] Jarvis Cholesterol [Mass/Vol] 127 mg/dL Normal <=200 [facility] Comment on above: Performed By: #### C MP, LIPID ####[facility] [address] [place] [id number] Jarvis Cholesterol in HDL [Mass/Vol] 36 mg/dL Critically low 40-60 [facility] Comment on above: Performed By: #### C MP, LIPID ####[facility] [address] [place] [id number]. Eli Jarvis Cholesterol in LDL [Mass/Vol] 58.4 mg/dL Normal [facility] Comment on above: Performed By: #### C MP, LIPID ####[facility] [address] [place] [address] [id number]. Eli Jarvis Cholesterol.total/ Cholesterol in HDL [Mass ratio] 3.5 {ratio} Normal [facility] Comment on above: Performed By: #### C MP, LIPID ####[facility] [address] [place] [id number]. Eli Jarvis HDL NORMAL > or = 60 mg/dl - LO W CARDIOVASCULAR RISK <40 mg/dl - HIGH CARDIOVASCULAR RISK Normal [facility] Comment on above: Performed By: #### C MP, LIPID ####[facility] [address] [place] [id number]. Eli Jarvis LDL CALC NORMAL SEE BELOW Normal [facility] Comment on above: Result Comment: <100 mg/dl OPTIMAL 100 - 129 mg/dl NEAR OR ABOVE OPTIMAL 130 - 159 mg/dl BORDERLINE HIGH 160 - 189 mg/dl HIGH >190 mg/dl VERY HIGH Performed By: #### C MP, LIPID ####[facility] [address] [id number]. Eli Jarvis Triglyceride [Mass/Vol] 163 mg/dL Critically high <=150 [facility] Comment on above: Performed By: #### C MP, LIPID ####[facility] [address] [place] [address]Dr. Eli Jarvis VLDL CALC 32.6 mg/dL Normal [facility] Comment on above: Performed By: #### C MP, LIPID ####[facility] [address] [place] [address]Dr. Eli Jarvis PROF 14(COMP METB)on 022 Albumin [Mass/Vol] 3.8 g/dL Normal 3.4-5.0 [facility] Comment on above: Performed By: #### C MP, LIPID ####[facility] [address] [place] [address]Dr. Eli Jarvis Albumin/Globulin [Mass ratio] 1.1 {ratio} Normal [facility] Comment on above: Performed By: #### C MP, LIPID ####[facility] [address] [place] [address]Dr. Eli Jarvis ALP [Catalytic activity/Vol] 89 U/L Normal 46-116 [facility] Comment on above: Performed By: #### C MP, LIPID ####[facility] [address] [place] [address]Dr. Eli Jarvis ALT [Catalytic activity/Vol] 43 U/L Normal 16-63 [facility] Comment on above: Performed By: #### C MP, LIPID ####[facility] [address] [place] [address]Dr. Eli Jarvis Anion gap [Moles/Vol] 10.7 mmol/L Normal [facility] Comment on above: Performed By: #### C MP, LIPID ####[facility] [address] [place] [address]Dr. Eli Jarvis AST [Catalytic activity/Vol] 24 U/L Normal 15-37 [facility] Comment on above: Performed By: #### C MP, LIPID ####[facility] [address] [place] [address]Dr. Eli Jarvis Bilirubin [Mass/Vol] 0.2 mg/dL Normal 0.2-1.0 [facility] Comment on above: Performed By: #### C MP, LIPID ####[facility] [address] [place] [address]Dr. Eli Jarvis Calcium [Mass/Vol] 9.1 mg/dL Normal 8.5-10.1 [facility] Comment on above: Performed By: #### C MP, LIPID ####[facility] [address] [place], [place] [address]Dr. Eli Jarvis Chloride [Moles/Vol] 104 mmol/L Normal 98-107 [facility] Comment on above: Performed By: #### C MP, LIPID ####[facility] [address] [place], [place] [address]Dr. Eli Jarvsi CO2 [Moles/Vol] 27.5 mmol/L Normal 21.0-32.0 [facility] Comment on above: Performed By: #### C MP, LIPID ####[facility] [address] [place], [place] [address]Dr. Eli Jarvis Creatinine [Mass/Vol] 1.15 mg/dL Normal 0.70-1.30 [facility] Comment on above: Performed By: #### C MP, LIPID ####[facility] [address] [place] [address]Dr. Eli Jarvis EGFR-AF AUSTRIAN >60 Normal >=60 [facility] Comment on above: Performed By: #### C MP, LIPID ####[facility] [address] [place] [address]Dr. Eli Jarvis EGFR-NON AF AUSTRIAN >60 Normal >=60 [facility] Comment on above: Performed By: #### C MP, LIPID ####[facility] [address] [place] [id number]. Eli Jarvis Globulin (S) [Mass/Vol] 3.4 g/dL Normal [facility] Comment on above: Performed By: #### C MP, LIPID ####[facility] [address] [place] [id number]. Eli Jarvis Glucose [Mass/Vol] 157 mg/dL Critically high 74-106 [facility] Comment on above: Performed By: #### C MP, LIPID ####[facility] [address] [place] [address]Dr. Eli Jarvis Potassium [Moles/Vol] 4.2 mmol/L Normal 3.5-5.1 [facility] Comment on above: Performed By: #### C MP, LIPID ####[facility] [address] [place], [place] [address]Dr. Eli Jarvis Protein [Mass/Vol] 7.2 g/dL Normal 6.4-8.2 [facility] Comment on above: Performed By: #### C MP, LIPID ####[facility] [address] [place], [place] [address]Dr. Eli Jarvis Sodium [Moles/Vol] 138 mmol/L Normal 136-145 [facility] Comment on above: Performed By: #### C MP, LIPID ####[facility] [address] [place], [place] [id number]. Eli Jarvis Urea nitrogen [Mass/Vol] 26.0 mg/dL Critically high 7.0-18.0 [facility] Comment on above: Performed By: #### C MP, LIPID ####[facility] [address] [place] [address]Dr. Eli Jarvis Urea nitrogen/Creatinin e [Mass ratio] 22.6 mg/mg Normal [facility] Comment on above: Performed By: #### C MP, LIPID ####[facility] [address] [place] [id number]. Eli Jarvis A1C HEMOGLOBINon 10-21-2021 HbA1c (Bld) [Mass fraction] 6.6 % [employer] Other Glucose - FINGER STICKon Glucose [Mass/Vol] 169 mg/dL [employer] Other HbA1c (Bld) [Mass fraction]o n 10-21-2021 A1C HEMOGLOBIN [employer] [facility] [employer] Other Comprehensive Metabolic Pane deann 07-29-2021 Albumin [Mass/Vol] 3.9 g/dL 3.2-5.5 [employer] Other Albumin/Globulin [Mass ratio] 1.6 {ratio} [employer] Other ALP [Catalytic activity/Vol] 63 U/L 32-92 [employer] Other ALT [Catalytic activity/Vol] 32 U/L 10-60 [employer] Other AST [Catalytic activity/Vol] 32 U/L 10-42 [employer] Other Bilirubin [Mass/Vol] 0.5 mg/dL 0.3-1.2 [employer] Other Calcium [Mass/Vol] 9.7 mg/dL 8.2-10.2 [employer] Other Chloride [Moles/Vol] 105 mmol/L 95-114 [employer] Other CO2 [Moles/Vol] 22.7 mmol/L 22.0-30.0 [facility] [employer] Other Creatinine [Mass/Vol] 1.28 mg/dL 0.64-1.27 [employer] Other Glucose [Mass/Vol] 111 mg/dL 70-100 [employer] Other Potassium [Moles/Vol] 4.1 mmol/L 3.5-5.1 [employer] Other Protein [Mass/Vol] 6.3 g/dL 6.1-7.9 [employer] Other Sodium [Moles/Vol] 139 mmol/L 136-146 [employer] Other Urea nitrogen [Mass/Vol] 23 mg/dL 9- [employer] Other Comprehensive Metabolic Panel 55 [employer] Other Comprehensive Metabolic Panel > 60 [employer] Other Comprehensive Metabolic Panel 2.4 [employer] Other Hepatitis Acute Panelon 10-2 Hepatitis Acute Panel Negative Negative [employer] Other Hepatitis Acute Panel <0.1 0.0-0.9 [employer] Other Vital Signs Date Time Vital Sign Value Performing Clinician Facility 09-11-2023 11:00-0500 Body height 167.64 cm Tondra Mapus Other [employer] Other 09-11-2023 11:00-0500 Body mass index (BMI) [Ratio] 44.91 kg/m2 Tondra Mapus Other [employer] Other 09-11-2023 11:00-0500 Body weight 126.24 kg Tondra Mapus Other [employer] Other 09-11-2023 11:00-0500 Diastolic blood pressure 82 mm[Hg] Tondra Mapus Other [employer] Other 09-11-2023 11:00-0500 Respiratory rate 18 /min Tondra Mapus Other [employer] Other 09-11-2023 11:00-0500 SaO2% (BldA) [Mass fraction] 99 % Tondra Mapus Other [employer] Other 09-11-2023 11:00-0500 Systolic blood pressure 153 mm[Hg] Aldo Middleton Other [employer] Other 08-24-2023 13:45-0500 Body height 167.64 cm Eligio Soni Other [employer] Other 08-24-2023 13:45-0500 Body mass index (BMI) [Ratio] 44.22 kg/m2 Eligio Soni Other [employer] Other 08-24-2023 13:45-0500 Body temperature 97.4 [degF] Eligio Soni Other [employer] Other 08-24-2023 13:45-0500 Body weight 124.29 kg Eligio Soni Other [employer] Other 08-24-2023 13:45-0500 Diastolic blood pressure 60 mm[Hg] Eligio Soni Other [employer] Other 08-24-2023 13:45-0500 SaO2% (BldA) [Mass fraction] 97 % Eligio Soin Other [employer] Other 08-24-2023 13:45-0500 Systolic blood pressure 130 mm[Hg] Eligio Soni Other [employer] Other 03-07-2023 10:00-0400 Body height 167.64 cm Terry Kelley Other [employer] Other 03-07-2023 10:00-0400 Body mass index (BMI) [Ratio] 43.61 kg/m2 Terry Kelley Other [employer] Other 03-07-2023 10:00-0400 Body weight 122.56 kg Terry Kelley Other [employer] Other 03-07-2023 10:00-0400 Diastolic blood pressure 70 mm[Hg] Terry Kelley Other [employer] Other 03-07-2023 10:00-0400 Respiratory rate 20 /min Terry Kelley Other [employer] Other 03-07-2023 10:00-0400 SaO2% (BldA) [Mass fraction] 96 % Terry Kelley Other [employer] Other 03-07-2023 10:00-0400 Systolic blood pressure 134 mm[Hg] Terry Kelley Other [employer] Other 02-14-2023 09:45-0400 Body height 172.72 cm Aldo Grantus Other [employer] Other 02-14-2023 09:45-0400 Body mass index (BMI) [Ratio] 41.32 kg/m2 Tondra Mapus Other [employer] Other 02-14-2023 09:45-0400 Body weight 123.29 kg Tondra Mapus Other [employer] Other 02-14-2023 09:45-0400 Diastolic blood pressure 82 mm[Hg] Tondra Mapus Other [employer] Other 02-14-2023 09:45-0400 Respiratory rate 18 /min Aldo Middleton Other [employer] Other 02-14-2023 09:45-0400 SaO2% (BldA) [Mass fraction] 97 % Aldo Grantus Other [employer] Other 02-14-2023 09:45-0400 Systolic blood pressure 157 mm[Hg] Aldo Grantus Other [employer] Other 01-20-2023 12:15-0400 Body height 172.72 cm Carito Fitt Other [employer] Other 01-20-2023 12:15-0400 Body mass index (BMI) [Ratio] 40.71 kg/m2 Carito Fitt Other [employer] Other 01-20-2023 12:15-0400 Body weight 121.47 kg Carito Fitt Other [employer] Other 01-05-2023 11:15-0400 Body height 172.72 cm Terry [employer] Other [employer] Other 01-05-2023 11:15-0400 Body mass index (BMI) [Ratio] 40.96 kg/m2 Terry [employer] Other [employer] Other 01-05-2023 11:15-0400 Body weight 122.2 kg Terry [employer] Other [employer] Other 01-05-2023 11:15-0400 Diastolic blood pressure 73 mm[Hg] Terry Kelley Other [employer] Other 01-05-2023 11:15-0400 Respiratory rate 18 /min Terry Kimblediff Other [employer] Other 01-05-2023 11:15-0400 SaO2% (BldA) [Mass fraction] 98 % Terry Kimblediff Other [employer] Other 01-05-2023 11:15-0400 Systolic blood pressure 143 mm[Hg] Terry Kmiblediff Other [employer] Other 11-24-2022 12:15-0500 Body height 172.72 cm Carito Fitt Other [employer] Other 11-24-2022 12:15-0500 Body mass index (BMI) [Ratio] 42.22 kg/m2 Carito Fitt Other [employer] Other 11-24-2022 12:15-0500 Body weight 125.96 kg Carito Fitt Other [employer] Other 11-18-2022 11:15-0500 Body height 172.72 cm Terry [employer] Other [employer] Other 11-18-2022 11:15-0500 Body mass index (BMI) [Ratio] 41.96 kg/m2 Terry Kelley Other [employer] Other 11-18-2022 11:15-0500 Body weight 125.19 kg Terrynikolai Kimblediff Other [employer] Other 11-18-2022 11:15-0500 Diastolic blood pressure 75 mm[Hg] Terry Kelley Other [employer] Other 11-18-2022 11:15-0500 Respiratory rate 18 /min Terry Kimblediff Other [employer] Other 11-18-2022 11:15-0500 SaO2% (BldA) [Mass fraction] 99 % Terry Kimblediff Other [employer] Other 11-18-2022 11:15-0500 Systolic blood pressure 148 mm[Hg] Terry Kimblediff Other [employer] Other 11-07-2022 10:15-0500 Body height 172.72 cm Tondra Mapus Other [employer] Other 11-07-2022 10:15-0500 Body mass index (BMI) [Ratio] 42.58 kg/m2 Tondra Mapus Other [employer] Other 11-07-2022 10:15-0500 Body weight 127.05 kg Tondra Mapus Other [employer] Other 11-07-2022 10:15-0500 Diastolic blood pressure 83 mm[Hg] Tondra Mapus Other [employer] Other 11-07-2022 10:15-0500 Respiratory rate 18 /min Tondra Mapus Other [employer] Other 11-07-2022 10:15-0500 SaO2% (BldA) [Mass fraction] 98 % Tondra Mapus Other [employer] Other 01-30-2023 10:15-0500 Systolic blood pressure 170 mm[Hg] Tondra Mapus Other [employer] Other 10-18-2022 15:00-0500 Body height 172.72 cm Carito Fitt Other [employer] Other 2022 16:15-0400 Body height 172.72 cm Carito Fitt Other [employer] Other 07-27-2022 12:00-0400 Body height 172.72 cm Tondra Mapus Other [employer] Other 07-27-2022 12:00-0400 Body mass index (BMI) [Ratio] 40.9 kg/m2 Tondra Mapus Other [employer] Other 07-27-2022 12:00-0400 Body weight 122.02 kg Tondra Mapus Other [employer] Other 07-27-2022 12:00-0400 Diastolic blood pressure 75 mm[Hg] Tondra Mapus Other [employer] Other 07-27-2022 12:00-0400 Respiratory rate 20 /min Tondra Mapus Other [employer] Other 07-27-2022 12:00-0400 SaO2% (BldA) [Mass fraction] 97 % Tondra Mapus Other [employer] Other 07-27-2022 12:00-0400 Systolic blood pressure 141 mm[Hg] Tondra Mapus Other [employer] Other 06-08-2022 10:45-0400 Body height 172.72 cm Carito West Other [employer] Other 04-21-2022 12:00-0400 Body height 172.72 cm Tondra Mapus Other [employer] Other 04-21-2022 12:00-0400 Body mass index (BMI) [Ratio] 39.67 kg/m2 Tondra Mapus Other [employer] Other 04-21-2022 12:00-0400 Body weight 118.34 kg Tondra Mapus Other [employer] Other 04-21-2022 12:00-0400 Diastolic blood pressure 74 mm[Hg] Tondra Mapus Other [employer] Other 04-21-2022 12:00-0400 Respiratory rate 20 /min Tondra Mapus Other [employer] Other 04-21-2022 12:00-0400 SaO2% (BldA) [Mass fraction] 97 % Tondra Mapus Other [employer] Other 04-21-2022 12:00-0400 Systolic blood pressure 143 mm[Hg] Tondra Mapus Other [employer] Other 10-21-2021 12:00-0500 Body height 172.72 cm Tondra Mapus Other [employer] Other 10-21-2021 12:00-0500 Body mass index (BMI) [Ratio] 40.14 kg/m2 Tondra Mapus Other [employer] Other 10-21-2021 12:00-0500 Body weight 119.75 kg Tondra Mapus Other [employer] Other 10-21-2021 12:00-0500 Diastolic blood pressure 78 mm[Hg] Tondra Mapus Other [employer] Other 10-21-2021 12:00-0500 Respiratory rate 20 /min Tondra Mapus Other [employer] Other 10-21-2021 12:00-0500 SaO2% (BldA) [Mass fraction] 97 % Tondra Mapus Other [employer] Other 10-21-2021 12:00-0500 Systolic blood pressure 147 mm[Hg] Tondra Mapus Other [employer] Other 07-21-2021 15:45-0400 Body height 172.72 cm Morgan Snyderaminta Other [employer] Other 07-21-2021 15:45-0400 Body mass index (BMI) [Ratio] 38.77 kg/m2 Morgan Snyderaminta Other [employer] Other 07-21-2021 15:45-0400 Body weight 115.67 kg Morgan Joaquina Other [employer] Other 12-14-2017 15:17-0500 Body height 170.18 cm MD Scarlet Johnson Work Phone: [facility] Encounters Encounter Date Encounter Type Care Provider Facility Start: 05-13-2024 ambulatory MD Everett Miner [facility] ity:[facility] Start: 12-21-2023 ambulatory MD Everett Miner [facility] ity:[facility] Start: 10-18-2023 ambulatory Araceli BERMUDEZ Facility :[facility] [place] Start: 10-16-2023 End: 10-17-2023 ambulatory Miguelangel Mac MD Facility:[facility] [place] Start: 09-25-2023 End: 09-26-2023 ambulatory Miguelangel Mac MD Facility:[facility] [place] Start: 09-20-2023 End: 09-21-2023 ambulatory MD Everett Miner Facility[facility] Start: 09-12-2023 End: 09-12-2023 ambulatory Tondra Mapus Other [facility] [employer] Other Start: 09-12-2023 Telephone encounter Tondra Mapus [facility] Start: 09-11-2023 (DM) Diabetes Tondra Mapus [facility] Start: 09-11-2023 End: 09-11-2023 ambulatory Daniel Everett Facility:[facility] Start: 08-24-2023 End: 08-24-2023 Patient encounter procedure MD Scarlet Johnson Work Phone: [facility] Start: 08-24-2023 End: 08-24-2023 ambulatory MD Scarlet Johnson Work Phone: [facility] Work Phone: Start: 08-24-2023 Office outpatient ne w 60 minutes Eligio Soni [facility] Start: 08-21-2023 End: 08-22-2023 ambulatory MD Everett Minre Facility:[facility] Start: 07-26-2023 End: 07-27-2023 ambulatory MD Everett Miner Facility:[facility] Start: 06-27-2023 ambulatory MD Everett iMner Facility : [place] Start: 06-26-2023 End: 06-27-2023 ambulatory Kaleb Mallory Facility:[facility] Start: 06-21-2023 End: 06-21-2023 ambulatory [facility] Start: 06-19-2023 End: 06-20-2023 ambulatory Miguelangel Mac MD Facility:[facility] Start: 06-14-2023 End: 06-14-2023 ambulatory Tondra Mapus Other [employer] Other Start: 06-14-2023 Telephone encounter Tondra Mapus [facility] Start: 06-09-2023 End: 06-09-2023 ambulatory Carito West Other [employer] Other Start: 06-09-2023 Nursing evaluation o f patient and report [facility]ie [facility] Start: 06-09-2023 Registered Recurring MD Scarlet franks [facility] Work Phone: Start: 06-05-2023 End: 06-06-2023 ambulatory Miguelangel Mac MD Facility:[facility] Start: 05-31-2023 End: 05-31-2023 ambulatory Tondra Mapus Other [employer] Other Start: 05-31-2023 Telephone encounter Tondra Mapus [facility] Start: 05-22-2023 End: 05-23-2023 ambulatory Miguelangel Mac MD Facility:[facility] Start: 05-15-2023 End: 05-16-2023 ambulatory Kaleb Mallory Facility:[facility] Start: 05-10-2023 Encounter for genera l adult medical examination without abnormal findings MD Everett Miner [facility] Start: 05-10-2023 End: 05-11-2023 ambulatory MD Everett Miner Facility:[facility] Start: 04-27-2023 End: 04-28-2023 ambulatory MD Everett Miner Facility:[facility] Jocelyn silva Start: 03-14-2023 End: 03-15-2023 ambulatory [employer] Nanette L Karl Facility:[facility] Start: 03-10-2023 ambulatory MD Everett Miner Facility :[facility] Start: 03-07-2023 Follow-up encounter Terry more[facility] Start: 03-07-2023 End: 03-08-2023 ambulatory Terry Kelley [facility] Other Start: 02-17-2023 End: 02-17-[address] JOVITA WOODARD . Facility:[facility] Start: 02-14-2023 (DM) Diabetes Tondra Mapus [facility] Start: 02-14-2023 End: 02-14-2023 ambulatory Tondra Mapus Other [employer] Other Start: 01-23-2023 End: 01-23-2023 ambulatory [facility] Start: 01-20-2023 ([facility] RD FU) [facility] F/ U Registerd Life Support Technician Carito West [facility] Start: 01-20-2023 End: 01-20-2023 ambulatory Carito West Other [employer] Other Start: 01-05-2023 End: 01-05-2023 ambulatory Terry Kelley Other [employer] Other Start: 01-05-2023 Follow-up encounter Terry moreno [...] DR TERRY KELLEY Facility:[facility] Start: 11-25-2022 amb[facility] Start: 11-24-2022 ([facility] WMNI) [facility] Start: 11-24-2022 End: 11-24-2022 ambulatory Carito West Other [employer] Other Start: 11-22-2022 End: 11-22-2022 ambulatory Tondra Mapus Other [employer] Other Start: 11-22-2022 Nursing evaluation o f patient and report Tondra [facility] Start: 11-18-2022 End: 11-18-2022 ambulatory Terry Kelley Other [employer] Other Start: 11-18-2022 Nutrition therapy Terry Kelley [facility] Start: 11-08-2022 End: 11-09-[address] SCARLET JOHNSON . Facility:[facility] Start: 11-07-2022 (DM) Diabetes Aldo Middleton [facility] Start: 11-07-2022 End: 11-07-2022 ambulatory Tondra Mapus Other [employer] Other Start: 10-18-2022 (RD) [facility] [employer] Start: 10-18-2022 End: 10-18-2022 ambulatory Carito West Other [employer] Other Start: 08-18-2022 End: 08-19-[address] BRITTNY MORALES Facility:[facility] Start: 2022 ([facility] DB FU) [facility] Diabetes F[facility]U [facility] Start: 2022 End: 08-11-[address] ARACELI BERMUDEZ [facility] hike Other Start: 07-29-2022 End: 07-30-[address] SCARLET JOHNSON . Facility:[facility] Start: 07-27-2022 (DM) Diabetes Tondra Mapus [facility] Start: 07-27-2022 End: 07-27-2022 ambulatory Tondra Mapus Other [employer] Other Start: 06-08-2022 (Life Support Technician) Life Support Technician Carito Alston located [facility] Start: 06-08-2022 End: 06-08-2022 ambulatory Carito West Other [employer] Other Start: 04-21-2022 (DM) Diabetes Tondra Mapus [facility] Start: 04-21-2022 End: 04-21-2022 ambulatory Tondra Mapus Other [employer] Other Start: 04-21-2022 Telephone encounter Tondra Mapus [facility] Start: 04-07-2022 End: 04-08-[address] SCARLET JOHNSON . Facility: Start: 10-21-2021 (DM) Diabetes Tondra Mapus [facility] Start: 10-21-2021 End: 10-21-2021 ambulatory Tondra Mapus Other [employer] Other Start: 07-21-2021 Office outpatient ne w 45 minutes Morgan Kunz [facility] Procedures Date Procedure Procedure Detail Performing Clinician Start: 08-24-2023 Duplex scan of lower limb veins MD Scarlet Johnson Work Phone: Immunizations Immunization Date Immunization Notes Care Provider Fa bita 12-30-2020 COVID-19 Vaccine Moderna - Documentation Purposes Only Morgan Kunz Other [employer] Other 12-02-2020 COVID-19 Vaccine Moderna - Documentation Purposes Only Morgan Kunz Other [employer] Other Payers Date Payer Category Payer Medicare 2022 Unknown 2017 Self-pay [id number] 2017 Unknown [id number] 1959 Medicare [id number] 2.1 6.840.1.754000.19 1959 Unknown [id number] 2. 16.840.1.152075.19 1949 Unknown [id number] 2.16.84 0.1.580864.3.579.2.593 1949 Unknown [id number] 2.16.84 0.1.452895.3.579.2.593 1949 Unknown [id number] 2.16.84 0.1.550983.3.579.2.593 1949 Unknown [id number] 2.16.84 0.1.442803.3.579.2.593 1949 Unknown [id number] 2.16.84 0.1.722839.3.579.2.593 1949 Unknown [id number] 2.16.84 0.1.573785.3.579.2.593 1949 Unknown [id number] 2.16.84 0.1.180009.3.579.2.593 1949 Unknown [id number] 2.16.84 0.1.765102.3.579.2.593 1949 Unknown [id number] 2.16.84 0.1.118268.3.579.2.593 1949 Unknown [id number] 2.16.84 0.1.480328.3.579.2.593 1949 Unknown [id number] 2.16.84 0.1.589884.3.579.2.593 1949 Unknown [id number] 2.16.84 0.1.860791.3.579.2.593 1949 Unknown [id number] 2.16.8 40.1.279180.3.579.2.727 1949 Unknown [id number] 2.16.8 40.1.716526.3.579.2.727 1949 Unknown [id number] 2.16.8 40.1.144250.3.579.2.727 1949 Unknown [id number] 2.16.8 40.1.391585.3.579.2.727 1949 Unknown [id number] 2.16.8 40.1.822422.3.579.2.727 1949 Unknown [id number] 2.16.8 40.1.987996.3.579.2.727 1949 Unknown [id number] 2.16.8 40.1.906871.3.579.2.727 1949 Unknown [id number] 2.16.8 40.1.252896.3.579.2.727 1949 Unknown [id number] 2.16.8 40.1.207877.3.579.2.727 1949 Unknown [id number] 2.16.8 40.1.459952.3.579.2.727 1949 Unknown [id number] 2.16.8 40.1.385198.3.579.2.727 1949 Unknown [id number] 2.16.8 40.1.026167.3.579.2.727 1949 Unknown [id number] 2.16. 840.1.737250.3.579.2.196 1949 Unknown [id number] 2.16. 840.1.269114.3.579.2.196 1949 Unknown [id number] 2.16. 840.1.803161.3.579.2.196 1949 Unknown [id number] 2.16. 840.1.378223.3.579.2.196 1949 Unknown [id number] 2.16. 840.1.190882.3.579.2.196 Unknown Standard [employer] Ins [id number] Unknown [id number] 2.16.8 40.1.837138.3.579.2.531 Unknown [id number] 2.16.8 40.1.095108.3.579.2.531 Unknown [id number] 2.16.8 40.1.942722.3.579.2.531 Social History Date Type Detail Facility Unknown if ever smoked [employer] Other Sex Assigned At Sex Assigned At Bir th [employer] Other Start: 1950 Sex Assigned At Male F [facility] Medical Equipment Procedure Code Equipment Code Equipment [...] Current use of insulin (ICD-10 - Z79.4) [employer] Other 11-16-2023 Evaluation note* Encounter Date Diagnosis Assessment Notes Treatment Notes Treatment Clinical Notes Aug, Cellulitis of right lower extremity (ICD-10 - L03.115) I did thoroughly review all the studies from [facility]. I do not have any images to [...] include weight loss exercise and compression therapy. [employer] Other 09-13-2023 NotePatient here for 6 mo follow up CAD, hypertension, and hyperlipidemia. Denies chest pain and palpitations. Says his SOB w/ exertion remains unchanged. C/o RLE edema w/ poor wound healing. He's seeing wound care at [facility] in [place]. Had normal NARAYAN's in Jul 2022. RLE venous doppler was negative for DVT in December 2022.[facility]09-13-2023 NoteCardiovascular Medicine [facility] SUBJECTIVE Dong Whitmore is a 72 [...] acute or reversible is (more content not included)...[facility]09-01-2023 Evaluation note* Encounter Date Diagnosis Assessment Notes Treatment Notes Treatment Clinical Notes Jun, Type 2 diabetes mellitus with diabetic chronic kidney disease (ICD-10 - E11.22) Dong and his came in today for [employer] baylee 3 training and refresher on his [...] He was given a no cut Grif Administrative Support Manager to try and a brochure to buy them online. We discussed the Novolog pen and that he is to use it if his BG before a meal is greater than 150. He was able to dial the pen and knows how to put the pen needle on and deliver the dose. 30 minutes were spent educating the patient by Kamlesh Sparrow RN, [facility]. [employer] Other 05-30-2023 Evaluation note* Encounter Date Diagnosis [...] February, Metabolic syndrome X (ICD-10 - E88.81) [employer] Other 05-09-2023 Evaluation note* Encounter Date Diagnosis [...] last visit, continue with weight loss efforts [employer] Other 04-17-2023 NotePatient here for follow up [...] pain. All other systems reviewed and are negative.[facility] 01-23-2023 NoteCardiovascular Medicine [facility] SUBJECTIVE Chief Complaint Patient presents with [...] is currently [facility] He is seeing the bradder. 01/23/2023 He is down about 10lbs since [...] Obesity Sleep apnea Type 2 diabetes mellitus ([facility]) Past Medical History: Diagnosis Date CAD (coronary artery disease) DM type 2 (diabetes mellitus, type 2) ([facility]) HLD (hyperlipidemia) HTN (hypertension) Neuropathy ULISES (obstructive [...] Edema present. Left l (more content not included)...[facility] 01-20-2023 Evaluation note* Encounter Date Diagnosis [...] the following goals: Add flavors to vegetables [employer] Other [facility]* Encounter Date Diagnosis Assessment [...] Dec, Metabolic syndrome X (ICD-10 - E88.81) [employer] Other 03-23-2023 NoteCARDIAC STRESS TEST Requesting Physician: [...] interpreted and reported nuclear myocardial perfusion imaging.[id number] NoteCardiovascular Medicine [facility] SUBJECTIVE Chief Complaint Patient presents with Coronary [...] is currently at a [facility] program [facility]. He is seeing the bradder. Patient Active Problem List Diagnosis Chest pain Chronic back pain Essential hypertension Gastroesophageal reflux disease Hyperlipidemia Neuropathy Obesity Sleep apnea Type 2 diabetes mellitus ([facility]) Past Medical History: Diagnosis Date CAD (coronary artery disease) DM type 2 (diabetes mellitus, type 2) ([facility]) HLD (hyperlipidemia) HTN (hypertension) Neuropathy ULISES (obstructive [...] 26, K 4.2, G (more content not included)...[facility]02-17-2023 NotePatient here for 6 mo follow up CAD, hypertension, and hyperlipidemia. He had routine labs 2 weeks ago, and had NARAYAN's in Jul 2022. He is now seeing a bradder and [place] [facility] Says his MILLER is unchanged from prior [...] pain. All other systems reviewed and are negative.[facility] 11-24-2022 Evaluation note* Encounter Date Diagnosis [...] following goals: 1) Increase vegetables at dinner [employer] Other 02-14-2023 Evaluation note* Encounter Date Diagnosis [...] him and his by Kamlesh Sparrow RN, [facility]. Reviewed cgm download 11/08/22-11/20/22: Avg glucose 171. >250-1%, >180-30%, 70-180-69%, <70-0%, <540%. CV 15..2%. [employer] PROFESSOR OF RHETORIC, SCHOOL PSYCHOMETRIST-C, BC-ADM [employer] Other 02-10-2023 Evaluation note* Encounter Date Diagnosis [...] Nov, Metabolic syndrome X (ICD-10 - E88.81) [employer] Other 01-30-2023 Evaluation note* Encounter Date Diagnosis [...] medication issues. 6. Prescriptions: Acarbose sent to [facility]. Sample baylee 2 cgm given today. 7. [...] Baylee 2 sensor and an office owned, [employer]. His phone was not compatible with Baylee 2 or 3, or Dexcom G6. He previously wore the Baylee 14 day system and did not need training on applying the device. I did train him on the use of the reader. He was vgiven samples of Grif Shift Foreman and Skin Tac to help keep the device in place. 45 minutes were spent educating the patient by Kamlesh Sparrow RN, [facility]. [employer] Other 01-10-2023 Evaluation note* Encounter Date Diagnosis [...] program2) Try roasted cronin peppers (recipe provided) [employer] Other 11-11-2022 NotePROCEDURE: XR FOOT RT MIN [...] Electronically authenticated by: BRITTNY MORALES Date: 2022-08-19 06:17[facility]11-02-2022 Evaluation note* Encounter Date Diagnosis Assessment Notes [...] nuts or cheese + crackers -Only likes greek cheese,-Recommended 15g or less for snacks; so [...] likes those-Increase vegetable intake-Vegetables: corn, peas, carrots [employer] Other 10-19-2022 Evaluation note* Encounter Date Diagnosis [...] referral to Dr. Kelley for weight management [employer] Other 08-31-2022 Evaluation note* Encounter Date Diagnosis [...] and his would cook it for him [employer] Other 07-14-2022 Evaluation note* Encounter Date Diagnosis [...] improved glycemia. Pt would likek referral to bradder. Note pt has intolerance to glp1 class [...] of glucose/bp control to prevent further nephropathy [employer] Other 01-13-2022 Evaluation note* Encounter Date Diagnosis [...] medication issues. 6. Prescriptions: Pioglitazone sent to [facility]. Oct, Hyperlipidemia, unspecified hyperlipidemia type (ICD-10 - [...] brochure given today. Recommend call if interested. [employer] Other 10-13-2021 Evaluation note* Encounter Date Diagnosis Assessment Notes Treatment Notes Treatment Clinical Notes Jul, MEDEIROS (nonalcoholic steatohepatitis) (ICD-10 - K75.81) Jul, Other [facility] INDICATED ABOVE F/U HERE PRN [employer] Other Evaluation noteNo InformationNort [employer] Other Evaluation noteNo assessment information available [facility] Work Phone: Hismqmn general Narrative - Reported* Type Description Date [...] first metatarsal 11-16-18 Hospitalization History see above [employer] Other Hisfphf general Narrative - Reported* Type Description Date [...] Foot Surgery 10/27/2021 Hospitalization History see above [employer] Other Hissrcm general Narrative - Reported* Type Description Date [...] Foot Surgery 10/27/2021 Hospitalization History see above [employer] Other Summary Purpose Family History No Family [...] up, Type 2 NIDDM f/u with [employer] PROFESSOR OF RHETORIC, SCHOOL PSYCHOMETRIST-C, BC-ADMlab resultsDM 6 month follow up, Type 2 NIDDM f/u with [employer] PROFESSOR OF RHETORIC, SCHOOL PSYCHOMETRIST-C, BC-ADMDM dieticianDM 3 month F/U, Type 2 NIDDM f/u with [employer] PROFESSOR OF RHETORIC, SCHOOL PSYCHOMETRIST- C, BC-ADM2nd DM visitDM 3rd visit (1st of the year)DM 3 month follow up, Type 2 NIDDM f/u with [employer] PROFESSOR OF RHETORIC, SCHOOL PSYCHOMETRIST-C, BC-ADMWMN initialcgm DownloadNo InformationWMN Dr Alston/URGeorgiana WM f/uDM 3 month follow up, Type 2 NIDDM f/u with [employer] PROFESSOR OF RHETORIC, SCHOOL PSYCHOMETRIST-C, BC-ADM2 month Follow uporder for baylee 3 reader/sensorsInsulin pen trainingTKM Insulin pen questionsReferred by Dr. Everett Miner for stasis ulcer right legDM 3 month follow up, Type 2 IDDM f/u with [employer] PROFESSOR OF RHETORIC, SCHOOL PSYCHOMETRIST-C, BC-ADMlab resultlab result (unrecognized sect ion and content) No Status Records FoundNo Status Records FoundNo Status Records FoundNo Status Records FoundNo Status Records Found INFORMATION SOURCE (unrecogn ized section and content) DATE CREATED AUTHOR 02/20/2023 [facility] DATE CREATED AUTHOR AUTHOR'S ORGANIZ ATION 07/03/2023 [facility] DATE CREATED AUTHOR AUTHOR'S ORGANIZ ATION 09/12/2023 [facility] DATE CREATED AUTHOR AUTHOR'S ORGANIZ ATION [facility]2023 [facility] DATE CREATED AUTHOR AUTHOR'S ORGANIZ ATION 10/18/2023 [facility] Care Teams (unrecognized sec tion and content) [...] BE BASED ON THE PRIMARY CLINICAL RECORDS. [employer] provides no warranty or guarantee of the accuracy or completeness of information in this document.
== END 2023-10-31 08:56 | disposition home or self-care (01) ==
LOC: US 08:55
PROVIDERS: PCP Family Medicine; Visit Provider Urology
DX: N20.0 Calculus of kidney (principal); N28.1 Cyst of kidney, acquired
CPT/HCPCS: 76775

== ENCOUNTER 2023-11-10 08:55 | Outpatient (OUT) | payer MEDICARE, OTHER, SELFPAY ==
--- NOTE | 2023-11-10 09:09 | XR_ITS ---
The [address] [address] Patient Name: LUISITO WHITMORE MRN: [id number] date: 1950 Sex: M Assigned Patient Location: [facility] Current Patient Location: RAD Accession/Order Number: [id number] Exam Date: 11/10/2023 09:18 Report Date: 11/10/2023 09:47 At the request of: CESAR KUMAR Procedure: XR abdomen 1V EXAMINATION: XR abdomen 1V HISTORY: Kidney Stone N20.0 COMPARISON: XR abdomen 12/18/2017 FINDINGS: KIDNEY/URETER - RIGHT: No visible renal or ureteral calcifications. KIDNEY/URETER - LEFT: No visible renal or ureteral calcifications. PELVIS: No visible ureteral stones. Stable small lower right pelvic calcification compatible with a phlebolith. BOWEL: No abnormal dilation or deviation. BONES: No acute abnormality. OTHER: Negative. No abnormal gaseous collections. XR/XR abdomen 1V IMPRESSION: 1. No appreciable urinary tract calculi. 2. Normal bowel gas pattern. Electronically authenticated by: BRITTNY MORALES Date: 11/10/2023 09:47
--- OUTSIDE RECORDS SUMMARY | 2023-11-10 09:09 | XMS_ITS | CCD ---
Author Name Unknown Address [address] [place] [address] Organization [facility] Care Team Providers Care Bilingual Sales Assistant Name Role Phone Morgan Kunz Unavailable Aldo [...] Unavailable DR MORGAN ROJO V Consulting Unavailable ANDREW, DR BRITTNY Hemphill Consulting Unavailable JOHNSON ., DR SCARLET [place] [facility] Unavailable ROLANDO SORIA Attending Unavailable ROLANDO SORIA Admitting Unavailable ROLANDO SORIA Consulting Unavailable JOHNSON ., DR SACRLET [place] Consulting Unavailable JOHNSON ., DR SCARLET [...] Soni Unavailable MD Daniel Everett Attending Provider [phone] MD Scarlet Johnson Primary Care Provider [phone] MD Eligio Soni Attending Provider Eligio Soni Admitting UnavailEligio Patel Attending UnavailScarlet Valerio Primary Care Unavailable Terry Kelley Attending Unavailable Scarlet Johnson Primary Care Unavailable Terry Kelley Admitting Unavailable Daniel Everett Admitting Unavailable Daniel Everett Attending Unavailable Scarlet Johnson Primary Care Unavailable Bubba SCHUSTER, Miguelangel Louis Attending Unavailable Bubba SCHUSTER, Andjuanjose Louis Attending Unavailable Bubba SCHUSTER, Andrius Louis Attending Unavailable Bubba SCHUSTER, Andrius Louis Attending Unavailable Bubba SCHUSTER, Andrius Louis Attending Unavailable Everett Miner Attending Unavailable CHARMAINE Barajas Attending Unavailable CHARMAINE Barajas Attending Unavailable Everett Miner Attending Unavailable Everett Miner Attending Unavailable Everett Miner Admitting Unavailable Everett Miner Attending Unavailable Everett Miner Referring Unavailable Kaleb Mallory Attending Unavailable Kaleb Mallory Attending Unavailable Araceli BERMUDEZ Attending Unavailable Araceli BERMUDEZ Attending Unavailable Everett Miner Attending Unavailable Everett Miner Attending Unavailable Everett Miner Attending Unavailable Allergies Allergy Classification Reported Allergen(s) Allergy Type Date of Onset Reaction(s) Facility (20 sources) Cefuroxime; Translations: [CEFUROXIME] Drug Allergy 06-09-20 Unknown [facility] Repository (20 sources) celecoxib; Translations: [CELECOXIB] Drug Allergy 06-09-20 Unknown [facility] Repository (20 sources) Diflunisal; Translations: [DIFLUNISAL] Drug Allergy 06-09-20 Unknown [facility] Repository (20 sources) dulaglutide Drug Allergy Unknown, g/i [employer] Other (20 sources) Ibuprofen Drug Allergy Unknown [employer] Other (20 sources) liraglutide; Translations: [LIRAGLUTIDE] Drug Allergy 11-25-19 23 stomach upset [facility] Repository (20 sources) metFORMIN; Translations: [METFORMIN] Drug Allergy 06-09-20 stomach upset [facility] Repository (20 sources) Naproxen; Translations: [NAPROXEN] Drug Allergy 06-09-20 Unknown [facility] Repository (20 sources) Sulindac; Translations: [Clinoril] Drug Allergy 07-10-20 15 Unknown [facility] Repository (1 source) Cefuroxime Drug Allergy 07-13-20 16 [facility] Repository (2 sources) celecoxib; Translations: [CeleBREX] Drug Allergy 07-10-20 15 [facility] Repository (2 sources) liraglutide; Translations: [Victoza] Drug Allergy [facility] Repository (1 source) metFORMIN Drug Allergy 06-15-20 17 [facility] Repository (2 sources) Naproxen; Translations: [Naprosyn] Drug Allergy 07-10-20 15 [facility] Repository (2 sources) NSAIDs; Translations: [NSAIDS (NON-STEROIDAL ANTI-INFLAMMATORY DRUG)] Drug allergy (disorder) 07-10-20 15 [facility] Repository (2 sources) Povidone-Iodine; Translations: [Dolobid] Drug Allergy 07-10-20 15 [facility] Repository (1 source) rofecoxib; Translations: [ROFECOXIB] Drug Allergy 06-09-20 21 [facility] Repository (1 source) Sulindac; Translations: [SULINDAC] Drug Allergy 06-09-20 21 [facility] Repository (2 sources) Cephalosporins (Antibiotic); Translations: [cephalosporins] Drug allergy (disorder) 05-29-20 18 [facility] Repository (1 source) Cefuroxime; Translations: [Cefuroxime Axetil] Drug Allergy [facility] Repository (1 source) dulaglutide; Translations: [Trulicity] Drug Allergy [facility] Repository (1 source) Niacin; Translations: [niacin] Drug Allergy [facility] Repository (1 source) NSAIDs; Translations: [NSAIDs] Propensity to adverse reactions (disorder) [facility] Repository (1 source) rofecoxib; Translations: [Vioxx] Drug Allergy [facility] Repository Medications Current Medications Medication Drug [...] mg tablet Active 500 MG PO Q12H June 06, 2018 11:00pm administer dose at [...] Nitro Sublingual 0.4 Sublingual As Directed Active [place] 5-Llr-Jui-Fish Oil (Fish Oil) 1,000 mg (120 mg-180 mg) Capsule (1 source) Start: 05-29-20 18 [place] 9-Zdx-Vwr-Fish Oil (Fish Oil) 1,000 mg (120 mg-180 [...] day Active take 2 tablets by mo [facility] every twenty-four hours Pioglitazone HCl 15 [...] Orally once a day Active FreeStyle Baylee Wilmot - (7 sources) FreeStyle Baylee Wilmot - use with baylee sensor SQ daily [...] Coronary arteriosclerosis; Translations: [Atherosclerotic heart disease of [place] coronary artery without angina pectoris] Onset: 11-25-2022 [...] deficiency, unspecified] Chronic Other aftercare (1 source) pen[facility]entiary (current) use of aspirin; Translations: [[facility] CURRENT USE OF ASPIRIN] Onset: 02-20-2023 Episodic Other aftercare (1 source) Other supervisor intermediates (current) drug therapy; Translations: [OTH [facility] CURRENT DRUG THERAPY] Onset: 02-20-2023 Episodic Other aftercare (6 sources) Long-term current use of insulin; Translations: [penitentiary (current) use of insulin] Episodic Other aftercare (1 source) penitentiary (current) use of insulin Episodic Other connective [...] Test Name Value Interpretation Reference Range Facility RAD - Ultrasound Reporton RAD - Ultrasound Report [id number]#1.00T IFF Normal [facility] RAD - Ultrasound Report [id number]#[id number] IFF Normal [facility] RAD - MISCon 10-30-2023 RAD - MISC [id number]#1.00TI FF Normal [facility] RAD - MRI Reporton RAD - MRI Report [id number] FF Normal [facility] Screenson 10-20-2023 Screens [id number] TIFF Normal [facility] Consultation Noteon 10-19-19 Consultation Note [id number] IFF Normal [facility] Ambulatory Visit Summaryon 0 10-18-2023 Ambulatory Visit Summary DONG WHITMORE :1950 Visit Date:10/18/2023 Ambulatory Visit Instructions Your Diagnosis Kidney stone Complex renal cyst BPH with obstruction/lower urinary tract symptoms Impotence Tests Performed Urnls Dip Stick Auto w/o Microscopy POC 63720 US Renal -- Results Pending -- Please visit your patient portal for your results or contact your primary care physician. Your Care Team Attending Physician - LATRICIA SCHUSTER, Araceli Treadwell Primary Care Physician - Kristofer SCHUSTER, Everett Bee This Is Your Medications List sodium bicarbonate (sodium bicarbonate 650 mg Tab) Contact prescribing physician if questions or concerns acarbose (acarbose 25 mg oral tablet) aspirin (aspirin 81 mg oral tablet) buPROPion (Wellbutrin XL 300 mg/24 hours Tab-ER) losartan (losartan 50 mg Tab) meloxicam (meloxicam 7.5 mg Tab) metoprolol (metoprolol 50 mg ER Tab) nitroglycerin (nitroglycerin 0.4 mg sublingual Tab) omega-3 polyunsaturated fatty acids (Fish Oil 1200 mg oral capsule) simvastatin (simvastatin 40 mg Tab) sitagliptin (Januvia 100 mg Tab) tizanidine (tiZANidine 4 mg Tab) Procedures Performed TOE AMPUTATION (11/16/2018), [...] tonsillectomy, Placement of stent in cardiac conduit. What to do next Scheduled Follow-Up Appointments 2023 1:00 PM EDT With: Kristofer CSHUSTER, Everett Bee Where: [facility] Invalid Interpretation Code [address] [place] [address]- \.br \ Monday 10:30 AM EST \.br\ With: LATRICIA SCHUSTER, Araceli Treadwell\.br\ Where: [facility] Patient Educationon 10-18-19 Patient Education Nephrology Dietary Guidelines to Help Prevent Kidney Stones Kidney stones are deposits of minerals and salts that form inside your kidneys. Your risk of developing kidney stones may be greater depending on your diet, your lifestyle, the medicines you take, and whether you have certain medical conditions. Most people can lower their risks of developing kidney stones by following these dietary guidelines. Your dietitian may give you more specific instructions depending on your overall health and the type of kidney stones you tend to develop. What are tips for following this plan? Reading food labels ? Choose foods with no salt added or low-salt labels. Limit your salt (sodium) intake to less than 1,500 mg a day. ? Choose foods with calcium for each meal and snack. Try to eat about 300 mg of calcium at each meal. Foods that contain 200?500 mg of calcium a serving include: ? 8 oz (237 mL) of milk, fncdicv-zcvqmsqkxefc-cr iry milk, and calcium-fortifiedfruit juice. Calcium-fortified means that calcium has been added to these drinks. ? 8 oz (237 mL) of kefir, yogurt, and soy yogurt. ? 4 oz (114 g) of tofu. ? 1 oz (28 g) of cheese. ? 1 cup (150 g) of dried figs. ? 1 cup (91 g) of cooked broccoli. ? One 3 oz (85 g) can of sardines or mackerel. Most people need 1,000?1,500 mg of calcium a day. Talk to your dietitian about how much calcium is recommended for you. Shopping ? Buy plenty of fresh fruits and vegetables. Most people do not need to avoid fruits and vegetables, even if these foods contain nutrients that may contribute to kidney stones. ? When shopping for convenience foods, choose: ? Whole pieces of fruit. ? Pre-made salads with dressing on the side. ? Low-fat fruit and yogurt smoothies. ? Avoid buying frozen meals or prepared deli foods. These can be high in sodium. ? Look for foods with live cultures, such as yogurt and kefir. ? Choose high-fiber grains, such as whole-wheat breads, oat bran, and wheat cereals. Cooking ? Do not add salt to food when cooking. Place a salt shaker on the table and allow each person to add their own salt to taste. ? Use vegetable protein, such as beans, textured vegetable protein (TVP), or tofu, instead of meat in pasta, casseroles, and soups. Meal planning ? Eat less salt, if told by your dietitian. To do this: ? Avoid eating processed or pre-made food. ? Avoid eating fast food. ? Eat less animal protein, including cheese, meat, poultry, or fish, if told by your dietitian. To do this: ? Limit the number of times you have meat, poultry, fish, or cheese each week. Eat a diet free of meat at least 2 days a week. ? Eat only one serving each day of meat, poultry, fish, or seafood. ? When you prepare animal proteins, cut pieces into small portion sizes. For most meat and fish, one serving is about the size of the palm of your hand. ? Eat at least five servings of fresh fruits and vegetables each day. To do this: ? Keep fruits and vegetables on hand for snacks. ? Eat one piece of fruit or a handful of berries with breakfast. ? Have a salad and fruit at lunch. ? Have two kinds of vegetables at dinner. ? You may be told to limit foods that are high in a substance called oxalate. These include: ? Spinach (cooked), rhubarb, beets, sweet potatoes, and Cuban chard. ? Peanuts. ? Potato chips, montenegrin fries, and baked potatoes with skin on. ? Nuts and nut products. ? Chocolate. ? If you regularly take a diuretic medicine, make sure to eat at least 1 or 2 servings of fruits or vegetables that are high in potassium each day. These include: ? Avocado. ? Banana. ? [place], prune, carrot, or tomato juice. ? Baked potato. ? Cabbage. ? Beans and split peas. Lifestyle ? Drink enough fluid to keep your urine pale yellow. This is the most important thing you can do. Spread your fluid intake throughout the day. ? If you drink alcohol: ? Limit how much you have to: ? 0?1 drink a day for women who are not . ? 0?2 drinks a day for men. ? Know how much alcohol is in your drink. In the [place] one drink equals one 12 oz bottle of beer (355 mL), one 5 oz glass of wine (148 mL), or one 1? oz glass of hard liquor (44 mL). ? Lose weight if told by your health care provider. Work with your dietitian to find an eating plan and weight loss strategies that work best for you. General information ? Talk to your health care provider and dietitian about taking daily supplements. Depending on your health and the cause of your kidney stones, you may be told: ? Do not take high-dose supplements of vitamin C (1,000 mg a day or more). ? To take a calcium supplement. ? To take a daily probiotic supplement. ? To take other supplements such as magnesium, fish oil, or vitamin B6. ? Take hilh-wqu-kyakmua and prescription medicines only as told by your health care provider. These include supplements. What foods sh (more content not included)... [facility] Reminderson 10-18-2023 Reminders - From: Roya Álvarez To: PREM Bermudez; Sent: 10/18/2023 15:39:39 EST Show up: 08/18/2024 15:39:00 EST Subject: Renal US Due Date/Time: 09/17/2024 15:39:00 EST Pt needs scheduled for TERRIE prior to 1 year appointment. Being done at [facility]. order placed. [facility] Urology Office/Clinic Noteon 10-18-2023 Urology Office/Clinic Note HPI Staff 73 year old male here for 1 year F/U. Pt. did not have a renal US. Previous DX: kidney stone, complex renal cyst, BPH w/LUTS, impotence and urgency. S/P TURP 11/15/07. Dysuria: no Incomplete bladder emptying: no Hematuria: no Frequency: 2-3 hours Urgency: no Nocturia: no Stream: good stream Post void dripping: mild Wearing pads/ Depends: no Urge incontinence: no Stress incontinence: no Incontinence without Sensory Awareness: no Abdominal pain: no Flank pain: Pt. states having lower Rt side pain. Pt. states he has always had this pain History of Present Illness Tests reviewed: reviewed UA. I have reviewed the previous health record information and history for this patient from Dr. Bermudez. I have reviewed and verified the staff HPI to be accurate for this encounter. There have been no associated fever, chills, flank pain, or blood in the urine. Denies any urinary infections since last encounter. Review of Systems ROS - Provider Constitutional: denies weight loss, denies hot flashes. Eyes: denies eye problems. Gastrointestinal: denies nausea, denies vomiting. Cardiovascular: denies chest pain or angina. Integumentary: no dryness Musculoskeletal: denies musculoskeletal symptoms. ENMT: denies otolaryngeal symptoms. Respiratory: no shortness of breath. Heme/Lymph: denies easy bleeding tendency, denies easy bruising tendency. Psychiatric: no confusion, no anxiety. Genitourinary: See HPI. Physical Exam General Appearance: alert, no distress, well nourished, well developed male. Assessment/Plan Portions of this record may have been created with voice recognition artificial intelligence software, specifically [employer], [employer] and or Silicon [employer]. Substitutions may have occurred due to the inherent limitations of voice recognition and artificial intelligence software. 1. Kidney stone (N20.0: Calculus of kidney) Renal US 08/10/22 shows 1 cm area of hypoechogenicity in the lateral cortex, nonspecific. 4 mm echogenic focus in the lingula, nonobstructing stone. No recent imaging. Taking sodium bicarbonate 650mg TID, recently refilled. Denies pain or passage of stones since last encounter. 2. Complex renal cyst (N28.1: Cyst of kidney, acquired) Renal US 08/10/22 shows 1 cm hypoechogenic lesion of the left renal cortex with increased acoustic through transmission suggests a complex cyst. No renal US was done for today's visit, pt thought one was not needed. Discussed today if repeating US is warranted due to stability. -Schedule renal US now -Repeat in 1 year 3. BPH with obstruction/lower urinary tract symptoms (N40.1: Benign prostatic hyperplasia with lower urinary tract symptoms) S/p TURP 11/15/2007. Pt states his PCP should be ordering PSA soon. No urinary complaints at this time. IPSS 7. UA today negative. 4. Impotence (N52.9: Male erectile dysfunction, unspecified) Unchanged. Overall the patient is voiding well. No change in urinary pattern status post prostate resection in 2007. We again had a discussion regarding his small complex renal cyst. He wants to proceed with intermittent renal ultrasounds. The plan is noted above with repeat ultrasound now and again prior to next visit. He is maintained on the alkalinization of the urine with dosage as noted above. He will call for refills. He knows that the renal ultrasound will not only follow the renal cyst but also evaluate for recurrent urolithiasis. He agrees with the plan Follow-up With When Contact Information LATRICIA SCHUSTER, Araceli P, URL [address] [place] [id number]- Additional Instructions: 1 year w/ renal US Patient Education Dietary Guidelines to Help Prevent Kidney Stones Roya Smith, personally scribed for Dr. Bermudez on 10/18/2023 15:40:43. . Documentation recorded by the scribRoya davenport, accurately reflects the services(s) I performed and decisions made by me. Authenticated by Dr. Bermudez on 10/18/2023 15:42:47. Problem List/Past Medical History Ongoing Acquired absence [...] right foot Anxiety disorder BPH - benign pr (more content not included)... Normal [facility] Comment on above: Result Comment: Elec tronically Signed By: Araceli BERMUDEZ MD\.br\Date and Time Signed: 10/18/23 15:45 EST\.br\Electronically Co-Signed By: Roya Álvarez\.br\Date and Time Co-Signed: 10/18/23 15:41 EST Family Medicine Office/Clini c Noteon 09-27-2023 Family [...] recent A1c level, as measured by his foiling machine operator, was 6.9%. Review of Systems PHQ Score [...] with voice recognition artificial intelligence software, specifically [employer], [employer] and or Silicon Clocks. Substitutions may have occurred due to the inherent limitations of voice recognition and artificial intelligence software. ATTESTATION: Documentation services were performed after patient or guardian consented to allow [place] [facility] to record this visit. HEMANTH marketing graphics specialist and provider reviewed before signing. HEMANTH: Dhevie Rigor Follow-up No qualifying data available We will [...] under fluo (more content not included)... Normal [facility] Comment on above: Result Comment: Elec [...] Follow-Up Appointments Monday 2:45 PM EST With: Araceli BERMUDEZ MD Where: [facility] Invalid Interpretation Code [address] [place] [address]- \.br \ Monday 9:30 AM EDT \.br\ With:\.br\ Where: [facility] Family Medicine [facility] Consultation Noteon 09-18-20 23 Consultation Note [id number] IFF Normal [facility] A1C with Estimated Average G luon 09-11-2023 HbA1c (Bld) [Mass fraction] 6.900 % High 4.3-5.6 % [facility] Other HbA1c (Bld) [Mass fraction] 151 mg/dL [facility] Other Glucose [Mass/Vol] 151 mg/dL Normal [facility] Comment on above: Order Comment: Reaso n for 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 Result Comment: Incr eased risk for diabetes: 5.7 - 6.4 diabetes: >6.4 glycemic control for adults with diabetes: <7.0 Performed By: #### A 1C [facility] eA #### [place] [id number] [facility] Glucose - FINGER STICKon Glucose [Mass/Vol] 138 mg/dL [facility] Other Consultation Noteon 09-06-20 Consultation Note [id number]#1.00TI FF [facility] Consultation Noteon 08-28-20 Consultation Note [id number] FF [facility] US UNI ankle/arm indiceson 1 10-24-2022 US UNI ankle/arm indices [facility] Main [place] [address] [place] [address] Ultrasound Report Signed Patient: Dong Whitmore MR#: [id number] : 1950 Acct:[id number] Age/Sex: 73 / M ADM Date: 08/24/23 Loc: [facility] Room: Type: [facility] CLI Attending Dr: Eligio Soni MD Ordering [...] Eligio Soni MD08/24/2023 3:31 PM Dictation Location: [place] [address] Tech: Britney Sotelo Transcribed By: CIRO 08/24/23 1531 Dictated By: Eligio Soni MD 08/24/23 1530 Signed By: 08/24/23 1531 [facility] US venous duplex LE RTon US venous duplex LE RT [facility] [place] [address] Ultrasound Report Signed Patient: Dong Whitmore MR#: [id number] : 1950 Acct:[id number] Age/Sex: 73 / M ADM Date: 08/24/23 Loc: [facility] Room: Type: [facility] CLI Attending Dr: Eligio Soni MD Ordering [...] Eligio Soni MD08/24/2023 3:31 PM Dictation Location: [place] [address] Tech: Coby Arthur Transcribed By: CIRO 08/24/231530 Dictated By: Eligio Soni MD 08/24/231530 Signed By: 08/24/231530 [facility] Ambulatory Visit Summaryon 1 10-21-2022 Ambulatory Visit Summary DONG WHITMORE :1950 Visit Date:08/21/2023 Ambulatory Visit Instructions Your [...] EST With: Kristofer SCHUSTER, Everett Bee Where: [facility] Invalid Interpretation Code [address] [place] [address]- \.br \ Monday 9:30 AM EDT \.br\ With:\.br\ Where: [facility] Family Medicine Office/Clini c Noteon 08-21-2023 Family [...] kidney d (more content not included)... Normal [facility] Comment on above: Result Comment: Elec [...] oz glass (more content not included)... Normal [facility] Pre-Visit Planningon 023 Pre-Visit Planning - From: Ceci uY To: Kristofer SCHUSTER, Everett Bee; Sent: 08/17/2023 10:44:28 EST Subject: Pre-Visit Planning Due Date/Time: 08/17/2023 10:44:00 EST Caller Name: DONG WHITMORE; Caller Number: H , B [phone] Ca Dr. Miner. During a pre-visit planning chart [...] feel free to contact me at extension [phone]. Thank you! Ceci Yu LPN Invalid Interpretation Code 272 [facility] Consultation Noteon 08-10-20 Consultation Note [id number] IFF Normal [facility] Family Medicine Office/Clini c Noteon 07-26-2023 Family Medicine Office/Clinic Note HPI Staff Dong is a 72 year old male presenting for 3 month follow up dm, htn, anxiety Do you have any of the following symptoms? Foot Exam: UTD by [facility] Eye Exam: UTD few weeks ago Last A1C: done at robert's office 7.2 last time Statin: simvastatin 40mg [...] continue to monitor along. Ordered: A1c POC 89576 Body Mass Index (BMI) documented 3008F Current [...] disease) - As above Ordered: A1c POC 11099 Body Mass Index (BMI) documented 3008F Current [...] stage 3a) - Stable Ordered: A1c POC 26090 Body Mass Index (BMI) documented 3008F Current [...] - No new issues Ordered: A1c POC 58151 Body Mass Index (BMI) documented 3008F Current [...] - BMI education given Ordered: A1c POC 35269 Body Mass Index (BMI) documented 3008F Current [...] last ye (more content not included)... Normal [facility] Comment on above: Result Comment: Elec [...] numbers. This can be done either in [place] ([place] or metric measurements. Note that charts and online BMI calculators are available to help you find your BMI quickly and easily without having to do these calculations yourself. To calculate your BMI in Cuban ([place] measurements: 1. Measure your weight in [...] for Disease Control and Prevention: www.cdc.gov ? [place] Heart Association: www.heart.org ? National Heart, Lung, and Blood Cent[place]: www.nhlbi.nih.gov Summary ? Body mass index (BMI) is a number that is calculated from a person's weight and height. ? BMI may help estimate how much of a person's weight is composed of fat. BMI can help identify those who may be at higher risk for certain medical problems. ? BMI can be measured using Cuban measurements or metric measurements. ? BMI charts are used to identify whether you are underweight, normal weight, overweight, or obese. This information is not intended to replace advice given to you by your health care provider. Make sure you discuss any questions you have with your health care provider. Document Revised: 06/17/2020 Document Reviewed: 04/24/2020 [employer] Patient Education ? 2022 [employer]. [facility] Physician Referralon 023 Physician Referral [id number]#1.00 TIFF [facility] Pre-Visit Planningon 023 Pre-Visit Planning - From: Ceci Yu To: Everett Miner MD; Sent: 07/24/2023 15:20:33 EDT Subject: Pre-Visit Planning Due Date/Time: 07/24/2023 15:20:00 EDT Caller Name: DONG WHITMORE; Caller Number: H , B [phone] Ca Dr. Miner. During a pre-visit planning chart [...] feel free to contact me at extension [phone]. Thank you! Ceci Yu LPN From: Kristofer SCHUSTER, Everett Bee To: Ceci Yu; Sent: 07/24/2023 16:58:10 EDT Subject: RE: Pre-Visit Planning Caller Name: DONG WHITMORE; Caller Number: H , B [phone] OK to add the first one. Thank you Normal [address] [place] [address] Consultation Noteon 07-19-20 Consultation Note [id number]#1.00T IFF Normal [facility] Operative Reporton Operative Report [id number] 003 [id number]#1.00T IFF Normal [facility] Consultation Noteon 07-03-20 Consultation Note [id number] [id number]#1.00CD :127 Normal [facility] Nursing Note - Woundon 06-28 Nursing Note - Wound [id number]#2.00 CD:127 Normal [facility] Physician Referralon 023 Physician Referral [id number] [id number]#1.00CD :127 [facility] Consent for Procedure/Surger yon 06-26-2023 Consent for Procedure/Surgery [id number]#1.00C D:127 [facility] Consent for Treatmenton 06-09 Consent for Treatment [id number]#1.00C D:127 [facility] Multi-Wound Charton 06-26-20 Multi-Wound Chart [id number]#1.00 CD:127 [facility] Nursing Assessment - Woundon 06-26-2023 Nursing Assessment - Wound [id number]#1.00 CD:127 [facility] Physician Orderon 06-26-2023 Physician Order [id number]#1.00 CD:127 [facility] Progress Note - Woundon 06-09 Progress Note - Wound [id number]#1.00 CD:127 [facility] Office Visiton 06-21-2023 Follow-up visit [id number] Carlos Whitmore 1950 M Date Provider Department Center 06/21/2023 [facility]8-ELAINE FISHER [facility] Family History Problem Relation Age of Onset Coronary artery disease Other Diabetes Other Family Status - Relation Status Age at Other Level of Service:92552 ID OFFICE/OUTPATIENT ESTABLISHED MOD MDM 30-39 MIN Normal [facility] Operative Reporton 3 Operative Report [id number] [id number]#1.00CD :127 [facility] Operative Reporton 3 Operative Report [id number]#1.00C D:127 Normal [facility] Consultation Noteon 05-27-20 Consultation Note [id number]#1.00C D:127 Normal [facility] Nursing Assessment - Woundon 05-17-2023 Nursing Assessment - Wound [id number]#1.00 CD:127 Normal [facility] Family Medicine Office/Clini c Noteon 05-16-2023 [...] Precautions for MERS/COVID-19 : N/A Conrad Yoon 05/10/2023 9:11 EDT Medicare/Medicaid Summary Height/Length Measured [...] (LOW) SpO2 : 96 % Conrad Yoon 05/10/2023 10:28 EDT Chief Complaint : Subsequent Medicare Wellness Patient Counseled : Nutrition, Physical activity, Elevated BMI Blood Pressure Position : Sitting O2 Sat Resting/Exertion Alpha : Resting Pain Present : No actual or suspected pain Conrad Yoon 05/10/2023 9:11 EDT Hearing and Vision Screening FT FT Whisper Test Comments : notes some hearing loss, no hearing aids worn Vision Screen Comments : wears corrective lenses, follows with Dr. Esther cantu Smith Yoonin R - 05/10/2023 9:19 EDT Advance Directive FT Advance Directive Date : copy at home, encouraged to bring to office Type of Advance Directive : Living will, Medical durable power of estate attorney Patient Wishes to Receive Further Information on Advance Directives : No Organ Donation Consent : Yes Smith Yoonin R - 05/10/2023 9:19 EDT Advance Directive : Yes Conrad Yoon Kanchan - 05/10/2023 9:11 EDT Procedures / Surgeries FT [...] Last Reviewed Dt/Tm: 05/10/2023 09:27:20 EDT [facility] ; Anesthesia Minutes: 0 ; Procedure Name: [...] 09:27:20 EDT Pr (more content not included)... Normal [facility] Comment on above: Result Comment: Elec tronically Signed By: Kristofer SCHUSTER, Everett Tejada\Date and Time Signed: 05/16/23 13:31 EDT\.br\Electronically Co-Signed By: Conrad Yoon\.br\Date and Time Co-Signed: 05/10/23 11:00 EDT Auth for Release of Medical Recordson 05-15-2023 Auth for Release of Medical Records [id number]#1.00C D:127 [facility] Consent for Procedure/Surger yon 05-15-2023 Consent for Procedure/Surgery [id number]#1.00C D:127 [facility] Consent for Treatmenton Consent for Treatment [id number]#1.00C D:127 [facility] Consent to Photographon Consent to Photograph [id number]#1.00C D:127 [facility] Correspondence - Woundon Correspondence - Wound [id number]#1.00C D:127 [facility] Correspondence - Wound [id number]#1.00C D:127 [facility] Nursing Assessment - Woundon 05-15-2023 Nursing Assessment - Wound [id number]#1.00C D:127 [facility] Nursing Note - Woundon 05-15 Nursing Note - Wound [id number]#1.00 CD:127 [facility] Physician Orderon 05-15-2023 Physician Order [id number]#1.00 CD:127 [facility] Progress Note - Woundon Progress Note - Wound [id number]#1.00 CD:127 Normal [facility] Ambulatory Visit Summaryon 0 05-10-2023 Ambulatory Visit [...] adult Your Care Team Attending Physician - Karl MONTANO, Nanette Hernandez Primary Care Physician - Everett Miner MD [...] EDT With: Shawnee SCHUSTER, Kaleb Bee Where: [facility] Monday 2:20 PM EDT With: Kristofer SCHUSTER, Everett Bee Where: [facility] Invalid Interpretation Code [address], [address] [place] [address]- \.br \ Monday 9:30 AM EDT \.br\ With:\.br\ Where: [facility] CMPon 05-10-2023 Albumin [Mass/Vol] 4.0 g/dL Normal 3.3-5.0 [facility] Comment on above: Performed By: #### 2 533092, 6746819, 49515655 ####[facility] [address] [place] [address] Albumin/Globulin (S) [Mass conc ratio] 1.2 Normal 1.1-2.2 [facility] Comment on above: Performed By: #### 2 017820, 4130354, 33067166 ####[facility] [address] [place] [address] ALP [Catalytic activity/Vol] 66 Int._Unit/L Normal 21-98 [facility] Comment on above: Performed By: #### 2 309195, 2473215, 80459049 ####[facility] [address] [place] [address] ALT No additional P-5'-P [Catalytic activity/Vol] 25 Int._Unit/L Normal 6-46 [facility] Comment on above: Performed By: #### 2 040182, 3403234, 50656556 ####[facility] [address] [place] [address] Anion gap [Moles/Vol] 11 mmol/L Normal 6-16 [facility] Comment on above: Performed By: #### 2 114635, 8540851, 13282588 ####[facility] [address] [place] [address] AST [Catalytic activity/Vol] 26 Int._Unit/L Normal 5-43 [facility] Comment on above: Performed By: #### 2 579289, 5962421, 93713140 ####[facility] [address] [place] [address] Bilirubin [Mass/Vol] 0.3 mg/dL Normal 0.0-1.1 [facility] Comment on above: Performed By: #### 2 166689, 1287285, 33735377 ####[facility] [address] [place] [address] Calcium [Mass/Vol] 9.2 mg/dL Normal 8.9-11.1 [facility] Comment on above: Performed By: #### 2 386686, 5926491, 25441343 ####[facility] [address] [place] [address] Chloride [Moles/Vol] 107 mmol/L Normal 101-111 [facility] Comment on above: Performed By: #### 2 461369, 7647831, 21380489 ####[facility] [address] [place] [address] CO2 [Moles/Vol] 23 mmol/L Normal 21-31 [facility] Comment on above: Performed By: #### 2 350720, 6827623, 34088532 ####[facility] [address] [place] [address] Creatinine [Mass/Vol] 1.3 mg/dL Normal 0.5-1.3 [facility] Comment on above: Performed By: #### 2 808953, 2095615, 44317996 ####[facility] [address] [place] [address] Globulin (S) [Mass/Vol] 3.2 g/dL Normal 1.4-4.0 [facility] Comment on above: Performed By: #### 2 197802, 6288869, 94388669 ####[facility] [address] [place] [address] Glucose [Mass/Vol] 137 mg/dL Normal 55-199 [facility] Comment on above: Result Comment: If t his glucose result represents a fasting glucose, interpretation should refer to the following reference range: 55-99 mg/dL Performed By: #### 2 465008, 4034541, 32540800 ####[facility] [address] [place] [address] Potassium [Moles/Vol] 4.0 mmol/L Normal 3.5-5.3 [facility] Comment on above: Performed By: #### 2 229763, 7389334, 39506903 ####[facility] [address] [place] [address] Protein [Mass/Vol] 7.2 g/dL Normal 6.0-7.8 [facility] Comment on above: Performed By: #### 2 040045, 6953492, 13432870 ####[facility] [address] [place] [address] Sodium [Moles/Vol] 137 mmol/L Normal 135-145 [facility] Comment on above: Performed By: #### 2 751932, 2269828, 07385686 ####[facility] [address] [place] [address] Urea nitrogen [Mass/Vol] 32 mg/dL High 5-21 [facility] Comment on above: Performed By: #### 2 220517, 4395533, 59608873 ####[facility] [address] [place] [address] Urea nitrogen/Creatinin e [Mass ratio] 25 No Units High 10-20 [facility] Comment on above: Performed By: #### 2 310999, 4454716, 86892602 ####[facility] [address] [place] [address] Lipid Panelon 05-10-2023 Cholesterol [Mass/Vol] 129 mg/dL Normal 120-200 [facility] Comment on above: Performed By: #### 2 748950, 7869027, 67560463 ####[facility] [address] [facility] [place] [facility] [place] [address] Cholesterol in HDL [Mass/Vol] 34 mg/dL Invalid Interpretation Code [facility] Comment on above: Result Comment: HDL > or equal to 60 mg/dL: Low cardiovascular risk HDL < 40 mg/dL : High cardiovascular risk Performed By: #### 2 673626, 6549046, 33168522 ####[facility] [address] [place] [address] Cholesterol in LDL [Mass/Vol] 63 mg/dL Normal <=129 [facility] Comment on above: Performed By: #### 2 019596, 6454219, 93646542 ####[facility] [address] [place] [address] Cholesterol in VLDL [Mass/Vol] 33 mg/dL Normal 7-40 [facility] Comment on above: Performed By: #### 2 472298, 6056780, 27477628 ####[facility] [address] [facility] [place] [facility] [place] [address] Triglyceride [Mass/Vol] 164 mg/dL High <=149 [facility] Comment on above: Performed By: #### 2 029767, 3522354, 83023282 ####[facility] [address] [place] [address] Patient Educationon 05-10-20 23 Patient Education Caregiving [...] night-lights. ? Place frequently used items in ibsd-mh-qvzhn places. Lower the shelves around your home [...] the way. ? Do not use floor arabic or wax that makes floors slippery. If [...] include working with a physical therapist or production trainer to improve your strength, balance, and endurance. Where to find more information ? Centers for Disease Control and Prevention, [place]: www.cdc.gov ? National Centert[place] on Aging: www.keena.nih.gov Contact a health care [...] health ca (more content not included)... Normal [facility] Screenson 05-10-2023 Screens [id number]#1.00C D:127 Normal [facility] U Microalbon 05-10-2023 Albumin DL <= 20 mg/L (U) [Mass/Vol] 57.4 microgram/mL High 0.0-19.0 [facility] Comment on above: Performed By: #### 1 [id number], 99526341 #### [facility] [address] [place] [address] U Protein/Creat Ratioon Albumin Elph (U) [Mass fraction] 20.8 mg/dL Invalid Interpretation Code [facility] Comment on above: Result Comment: The reference range and other method performance specifications have not been established for this test; results should be integrated into the clinical context for interpretation. Performed By: #### 1 [id number], 90895297 ####[facility] [address] [place] [address] Creatinine (U) [Mass/Vol] 130.1 mg/dL Invalid Interpretation Code [facility] Comment on above: Result Comment: The reference range and other method performance specifications have not been established for this test; results should be integrated into the clinical context for interpretation. Performed By: #### 1 [id number], 11218586 ####[facility] [address] [place] [address] U Prot/Creat Ratio 159.90 mg/gm Cr Normal .00-200.00 F [facility] Comment on above: Performed By: #### 1 [id number], 42830373 ####[facility] [address] [place] [address] eGFRon 05-10-2023 GFR/1.73 sq M.predicted among non-blacks MDRD (S/P/Bld) [Vol rate/Area] 58 mL/min/1.73 m2 Low >=59 [facility] Comment on above: Order Comment: Order added by Discern Expert. Result Comment: Manager Case hai kidney disease could be indicated at eGFR's of less than 60 mL/min/1.73m2. Kidney failure is indicated at less than 15 mL/min/1.73m2. Performed By: #### 2 961885, 2369498, 54810959 ####[facility] [address] [place] [address] Family Medicine Office/Clini c Noteon 05-01-2023 Family Medicine Office/Clinic Note Chief Complaint discuss issues with right toe HPI Staff Dong is a 72 year old male patient presenting to the office to establish care. Establish care: History: DM. ASCVD,neuropathy, htn, hyperlipidemia, medeiros, sleep apnea spinal stenosis, vit d defic. OA, psoriasis CKD stage 3 Last provider: Alex Any recent labs: 11/2022 Health Maintenance UTD: Colonoscopy: 1.5-2 yrs ago, few polyps PSA: due covid: UTD recent a6zm9-21 recent isabela-9 Acute: Current issues/complaints: discuss issues [...] has been to Dr. Aguilar, his regular taping supervisor. He thinks not by taking the toe [...] most of his life. He sees a map and chart mounter. He last saw them a couple of [...] years since he has carried them. His foiling machine operator ordered his lab work. He is supposed [...] his blood sugars under control with his foiling machine operator. 5. Chronic bilateral low back pain without sciatica (M54. (more content not included)... Normal [facility] Comment on above: Result Comment: Elec tronically Signed By: Everett Miner MD\.br\Date and Time Signed: 05/01/23 11:27 EDT\.br\Electronically Co-Signed By: Dahiana Berg\.br\Date and Time Co-Signed: 04/27/23 17:48 EDT Physician Referralon 023 Physician Referral [id number] [id number]#1.00 CD:127 Normal [facility] Physician Referral [id number] [id number]#1.00 CD:127 Normal [facility] Ambulatory Visit Summaryon 0 04-27-2023 Ambulatory [...] Appointments Monday 9:20 AM EDT With: Where: [facility] Invalid Interpretation Code [address] [place] [address]- \.br \ Monday 2:20 PM EDT \.br\ With: Kristofer SCHUSTER, Everett Bee\.br\ Where: [facility] Ambulatory Visit Summaryon 0 03-14-2023 Ambulatory Visit [...] Appointments Monday 9:20 AM EDT With: Where: [facility] Invalid Interpretation Code [address] [place] [address]- \.br \ Monday 8:15 AM EST \.br\ With: LATRICIA SCHUSTER, Araceli Treadwell\.br\ Where: [facility] Family Medicine Office/Clini c Noteon 03-14-2023 Family Medicine Office/Clinic Note Chief Complaint pt here to establish care HPI Staff establish care Establish Care: History: HTN, Diabetes Last provider: Dr Johnson Any recent labs: 11/08/2022 weeks ago Wolf Specialist: Electromechanical Engineer Melissa oLpez in [place], taping supervisor Health Maintenance UTD: Colonoscopy: 1.5- 2 years ago few polyps other villarreal normal PSA: 04/07/22 Acute: Current issues/complaints: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 Having problems sleeping hurts the worst at night at time ca be 10/10. Radiotelegraph Operator Servicer has told him there isn't anything they [...] year 4. Hypertension (I10: Essential (primary) hypertension) map and chart mounter just increased his meds 5. 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 Hyperlipidemia (E78.5: Hyperlipidemia, [...] BID, # 180 tab(s), Refills(s) 3, Pharmacy: [facility]/pharmacy #[id number], 170, cm, 03/14/23 9:16:00 EDT, Height/Length Dosing, 121.8, kg, 03/14/23 9:16:00 EDT, Weight Dosing Follow-up No qualifying data available Problem List/Past Medical History Ongoing Anticoagulated 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 Normal [facility] Comment on above: Result Comment: Elec tronically Signed By: Nanette Do\.cyrus\Date and Time Signed: 03/14/23 11:03 EDT 36on 03-08-2023 36 Please let him know his kidney function is stable. Continue current medications. Follow-up as planned in 3 months. Thank you Normal [facility] A1C HEMOGLOBINon 02-14-2023 HbA1c (Bld) [Mass fraction] 7.6 % [employer] Other Glucose - FINGER STICKon Glucose [Mass/Vol] 215 mg/dL [employer] Other HbA1c (Bld) [Mass fraction]o n 02-14-2023 A1C HEMOGLOBIN [facility] [employer] Other 36on 02-13-2023 36 BP higher than goal of <130/90. Recommend increasing his losartan to 75mg daily (1.5 tablets of his current Rx) with follow-up BMP in 2 weeks. Thanks [facility] 36on 01-23-2023 36 . [facility] Office Visiton 01-23-2023 Follow-up visit [id number] Carlos Whitmore 1950 [place] Provider Department Center 01/23/2023 MARY GRIFFIN Family History Problem Relation Age of Onset Coronary artery disease Other Diabetes Other Family Status - Relation Status Age at Other Level of Service:07751 ID OFFICE/OUTPATIENT ESTABLISHED MOD MDM 30-39 MIN Reason for Visit and Comments: Cardiac Stress Test [489] [facility] Telephoneon 01-23-2023 Telephone [id number] Carlos Whitmore 1950 [facility] Provider Department Center 01/23/2023 PAPITO BROWN Family History Problem Relation Age of Onset Coronary artery disease Other Diabetes Other Family Status - Relation Status Age at Other [facility] 36on 01-06-2023 36 Patient stopped by josiane cantrell office during lunch hour and spoke with Yarelis from the [facility] cardiac rehab. He wanted stress and [...] he needs RX for BP cuff. Normal [facility] Telephoneon 01-06-2023 Telephone [id number] Carlos Whitmore 1950 M Date Provider Department Center 01/06/2023 MARY GRIFFIN [facility]ARD [facility] Family History Problem Relation Age of Onset Coronary artery disease Other Diabetes Other Family Status - Relation Status Age at Other Normal [facility] ECHOCARDIO M/2D COMPLETEon 0 12-30-2022 ECHOCARDIO M/2D COMPLETE Patient: DONG WHITMORE. Exam Date: 12/30/2022 : 1950 Gender:M Ordering : MARY JOHNSON [facility] Admission #: [id number] Family : Order #: [id number] CLICK HERE TO VIEW EXAM ECHOCARDIOGRAM REPORT [...] Thibodeaux M.D. on 12/30/2022 at 18:49 Normal [facility] STRESS/REST MULTIon 12-29 [place] STRESS/REST MULTI Patient: AHIM DONG NurSuzie Exam Date: 12/29/2022 : 1950 Gender:M Ordering : MARY JOHNSON [facility] Admission #: [id number] Family : Order #: [id number] CLICK HERE TO VIEW EXAM RADIOLOGY REPORT [...] Morales M.D. on 12/30/2022 at 09:41 Normal [facility] US MAMI DOP LEG RTon 12-09-19 23 [...] by: MORGAN ROJO Date: 2022-12-08 16:15 Normal [facility] Office Visiton 11-25-2022 Follow-up visit [id number] Carlos Whitmore 1950 M Date Provider Department Center 11/25/2022 MARY GRIFFIN [facility] Family History Problem Relation Age of Onset Coronary artery disease Other Diabetes Other Family Status - Relation Status Age at Other Level of Service:69851 ID OFFICE/OUTPATIENT ESTABLISHED HIGH MDM 40-54 MIN Reason for Visit and Comments: Coronary Artery Disease [187] Hypertension [283251] Hyperlipidemia [182] Normal [facility] TSHon 11-25-2022 TSH 2.370 uIU/mL Normal 0.358-3.740 [facility] Comment on above: Performed By: #### T SH #### [facility] [address] [address] [address] Eli Jarvis BNPon 11-08-2022 Natriuretic peptide B (Bld) [Mass/Vol] 122.0 pg/mL Normal <=900.0 [facility] Comment on above: Performed By: #### C MP, BNP #### [facility] [address] [address] [address] Eli Jarvis CBC AUTO DIFFon 11-08-2022 BASO # 0.1 103/ul Normal 0.0-0.1 [facility] Comment on above: Performed By: #### C BC ####[facility] [address] [address]Dr. Eli Jarvis Basophils/100 WBC (Bld) 0.7 % Normal 0.2-2.0 [facility] Comment on above: Performed By: #### C BC ####[facility] [address] [address]Dr. Eli Jarvis EO # 0.2 103/ul Normal 0.0-0.7 [facility] Comment on above: Performed By: #### C BC ####[facility] [address] [place] [address]Dr. Eli Jarvis Eosinophils/100 WBC (Bld) 3.5 % Normal 0.9-7.0 [facility] Comment on above: Performed By: #### C BC ####[facility] [address] [place], [place] [address]DrSuzie Jarvis Erythrocyte distribution width (RBC) [Ratio] 13.8 % Normal 11.0-15.0 [facility] Comment on above: Performed By: #### C BC ####[facility] [address]uf[address] [place], [place] [address]Dr. Eli Jarvis Hematocrit (Bld) [Volume fraction] 42.0 % Normal 42.0-54.0 [facility] Comment on above: Performed By: #### C BC ####[facility] [address]zaf[address]kg[address] [place] [address]Dr. Eli Matheus Hemoglobin (Bld) [Mass/Vol] 13.8 g/dL Critically low 14.0-18.0 [facility] Comment on above: Performed By: #### C BC ####[facility] [address]dkpkkv[address] [place] [address]Dr. Sparklealine Matheus IG # 0.03 10e3/ul Normal 0.00-0.03 [facility] Comment on above: Performed By: #### C BC ####[facility] Vnfnoatgbo[address] [place] [address]Dr. Eli Jarvis IG % 0.4 % Normal 0.0-0.5 [facility] Comment on above: Performed By: #### C BC ####[facility] Vf[address]wc[address]ts[address] [place], [place] [address]Dr. Eli Jarvis LYMPH # 1.3 103/ul Normal 1.2-3.8 [facility] Comment on above: Performed By: #### C BC ####[facility] [address]ximbveocj[address] [place] [address]Dr. Eli Jarvis Lymphocytes/100 WBC (Bld) 18.8 % Critically low 20.5-60.0 [facility] Comment on above: Performed By: #### C BC ####[facility] Ztttjkdyql[address] [place] [address]Dr. Eli Jarvis MANUAL DIFF REQ NO Normal [facility] Comment on above: Performed By: #### C BC ####[facility] [address]lf[address] [place] [phone]. Eli Jarvis MCH (RBC) [Entitic mass] 27.8 pg Normal 25.9-34.0 [facility] Comment on above: Performed By: #### C BC ####[facility] Sruobhvfpd8[address] [place] [phone]. Eli Jarvis MCHC (RBC) [Mass/Vol] 32.9 g/dL Normal 29.9-35.2 [facility] Comment on above: Performed By: #### C BC ####[facility] L[address]ohamnwqr[address] [place] [address]Dr. Eli Jarvis MCV (RBC) [Entitic vol] 84.7 fL Normal 80.0-94.0 [facility] Comment on above: Performed By: #### C BC ####[facility] Ysqedehjij[address] [place] [address]Dr. Eli Jarvis MONO # 0.6 103/ul Normal 0.3-0.8 [facility] Comment on above: Performed By: #### C BC ####[facility] Atqtufqfnh[address] [place] [address]Dr. Eli Matheus Monocytes/100 WBC (Bld) 8.5 % Normal 1.7-12.0 [facility] Comment on above: Performed By: #### C BC ####[facility] Foborobulj[address] [place], [place] [address]Dr. Eli Jarvis NEUT # 4.7 103/ul Normal 1.4-6.5 [facility] Comment on above: Performed By: #### C BC ####[facility] Qveffibnvw[address] [place], [place] [address]Dr. Eli Matheus Neutrophils/100 WBC (Bld) 68.1 % Normal 43.0-75.0 [facility] Comment on above: Performed By: #### C BC ####[facility] Ikvyuhpjre[address] [place], [place] [address]Dr. Eli Matheus Platelet mean volume (Bld) [Entitic vol] 10.3 fL Normal 9.5-13.5 [facility] Comment on above: Performed By: #### C BC ####[facility] Yq[address]zydw[address] [place], [place] [address]Dr. Eli Matheus PLT 189 103/ul Normal 150-450 [facility] Comment on above: Performed By: #### C BC ####[facility] Mxkncocdjv[address] [place] [phone]. Eli Jarvis RBC 4.96 106/ul Normal 4.70-6.10 [facility] Comment on above: Performed By: #### C BC ####[facility] Qvlqavegth58[address] [place] [phone]. Eli Jarvis WBC 7.0 103/ul Normal 4.0-11.0 [facility] Comment on above: Performed By: #### C BC ####[facility] Ygxxzotvqy26[address] [place] [phone]. Eli Jarvis PROF 14(COMP METB)on 023 Albumin [Mass/Vol] 3.6 g/dL Normal 3.4-5.0 [facility] Comment on above: Performed By: #### C MP, BNP #### [facility] [address] [place] [address] Dr. Eil Jarvis Albumin/Globulin [Mass ratio] 1.1 {ratio} Normal [facility] Comment on above: Performed By: #### C MP, BNP #### [facility] [address] [place] [address] Dr. Eli Jarvis ALP [Catalytic activity/Vol] 90 U/L Normal 46-116 [facility] Comment on above: Performed By: #### C MP, BNP #### [facility] [address] [place] [address] Dr. Eli Jarvis ALT [Catalytic activity/Vol] 42 U/L Normal 16-63 [facility] Comment on above: Performed By: #### C MP, BNP #### [facility] [address] [place] [address] [address] Eli Jarvis Anion gap [Moles/Vol] 13.5 mmol/L Normal [facility] Comment on above: Performed By: #### C MP, BNP #### [facility] [address] [place] [address] [address] Eli Jarvis AST [Catalytic activity/Vol] 26 U/L Normal 15-37 [facility] Comment on above: Performed By: #### C MP, BNP #### [facility] [address] [place] [address] Dr. Eli Jarvis Bilirubin [Mass/Vol] 0.4 mg/dL Normal 0.2-1.0 [facility] Comment on above: Performed By: #### C MP, BNP #### [facility] [address] [address] [address] Eli Jarvis Calcium [Mass/Vol] 9.3 mg/dL Normal 8.5-10.1 [facility] Comment on above: Performed By: #### C MP, BNP #### [facility] [address] [address] [address] Eli Jarvis Chloride [Moles/Vol] 104 mmol/L Normal 98-107 [facility] Comment on above: Performed By: #### C MP, BNP #### [facility] [address] [address] [address] Eli Jarivs CO2 [Moles/Vol] 25.7 mmol/L Normal 21.0-32.0 [facility] Comment on above: Performed By: #### C MP, BNP #### [facility] [address] [place] [address] Dr. Eli Jarvis Creatinine [Mass/Vol] 1.32 mg/dL Critically high 0.70-1.30 [facility] Comment on above: Performed By: #### C MP, BNP #### [facility] [address] [place] [address] Dr. Eli Jarvis EGFR-AF SUDANESE >60 Normal >=60 [facility] Comment on above: Performed By: #### C MP, BNP #### [facility] [address] [place] [address] Dr. Eli Jarvis EGFR-NON AF SUDANESE 53 mL/min/1.73m2 Critically low >=60 [facility] Comment on above: Performed By: #### C MP, BNP #### [facility] [address] [address] [address] Eli Jarvis Globulin (S) [Mass/Vol] 3.3 g/dL Normal [facility] Comment on above: Performed By: #### C MP, BNP #### [facility] [address] [address] [address] Eli Jarvis Glucose [Mass/Vol] 154 mg/dL Critically high 74-106 [facility] Comment on above: Performed By: #### C MP, BNP #### [facility] [address] [address] [address] Eli Jarvis Potassium [Moles/Vol] 4.2 mmol/L Normal 3.5-5.1 [facility] Comment on above: Performed By: #### C MP, BNP #### [facility] [address] [place] [address] Dr. Eli Jarvis Protein [Mass/Vol] 6.9 g/dL Normal 6.4-8.2 [facility] Comment on above: Performed By: #### C MP, BNP #### [facility] [address] [place] [address] Dr. Eli Jarvis Sodium [Moles/Vol] 139 mmol/L Normal 136-145 [facility] Comment on above: Performed By: #### C MP, BNP #### [facility] [address] [place] [address] Dr. Eli Jarvis Urea nitrogen [Mass/Vol] 23.0 mg/dL Critically high 7.0-18.0 [facility] Comment on above: Performed By: #### C MP, BNP #### [facility] [address] [place] [address] Dr. Eli Jarvis Urea nitrogen/Creatinin e [Mass ratio] 17.4 mg/mg Normal [facility] Comment on above: Performed By: #### C MP, BNP #### [facility] [address] [place] [address] Dr. 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 COMPARISON: No [...] by: MORGAN ROJO Date: 2022 18:30 Normal [facility] A1C HEMOGLOBINon 07-27-2022 HbA1c (Bld) [Mass fraction] 7.2 % [employer] Other Glucose - FINGER STICKon Glucose [Mass/Vol] 160 mg/dL [employer] Other HbA1c (Bld) [Mass fraction]o n 07-27-2022 A1C HEMOGLOBIN [employer] Other A1C HEMOGLOBINon 04-21-2022 HbA1c (Bld) [Mass fraction] 7.6 % [employer] Other Glucose - FINGER STICKon Glucose [Mass/Vol] 184 mg/dL [employer] Other HbA1c (Bld) [Mass fraction]o n 04-21-2022 A1C HEMOGLOBIN [employer] Other [employer] Creat Ratio,Uon Albumin DL <= 20 mg/L (U) [Mass/Vol] 10.2939395 mg/dL High 0.0-1.8 mg/dL [employer] Other Albumin/Creatinine DL <= 20 mg/L (U) [Mass ratio] 70.218609 mg/g High 0.0-30.0 mg/g [facility] [employer] Other Creatinine (U) [Mass/Vol] 617.0286961 mg/dL [facility] [employer] Other CBC AUTO DIFFon 04-07-2022 BASO # 0.0 103/ul Normal 0.0-0.1 [facility] Comment on above: Performed By: #### C BC #### [facility] [address] [address] [address] Eli Jarvis Basophils/100 WBC (Bld) 0.6 % Normal 0.2-2.0 [facility] Comment on above: Performed By: #### C BC #### [facility] [address] [place] [address] Dr. Eli Jarvis EO # 0.2 103/ul Normal 0.0-0.7 [facility] Comment on above: Performed By: #### C BC #### [facility] [address] [place] [address] Dr. Eli Jarvis Eosinophils/100 WBC (Bld) 2.9 % Normal 0.9-7.0 [facility] Comment on above: Performed By: #### C BC #### [facility] [address] [place] [address] Dr. Eli Jarvis Erythrocyte distribution width (RBC) [Ratio] 13.8 % Normal 11.0-15.0 [facility] Comment on above: Performed By: #### C BC #### [facility] [address] [place] [address] Dr. Eli Jarvis Hematocrit (Bld) [Volume fraction] 40.7 % Critically low 42.0-54.0 [facility] Comment on above: Performed By: #### C BC #### [facility] [address] [place] [address] Dr. Eli Jarvis Hemoglobin (Bld) [Mass/Vol] 13.3 g/dL Critically low 14.0-18.0 [facility] Comment on above: Performed By: #### C BC #### [facility] [address] [place] [address] Dr. Eli Jarvis IG # 0.04 10e3/ul Critically high 0.00-0.03 [facility] Comment on above: Performed By: #### C BC #### [facility] [address] [place] [address] Dr. Eli Jarvis IG % 0.6 % Critically high 0.0-0.5 [facility] Comment on above: Performed By: #### C BC #### [facility] [address] [place] [address] Dr. Eli Jarvis LYMPH # 1.3 103/ul Normal 1.2-3.8 [facility] Comment on above: Performed By: #### C BC #### [facility] [address] [place] [address] Dr. Eli Jarvis Lymphocytes/100 WBC (Bld) 18.7 % Critically low 20.5-60.0 [facility] Comment on above: Performed By: #### C BC #### [facility] [address] [place] [address] Dr. Eli Jarvis MANUAL DIFF REQ NO Normal [facility] Comment on above: Performed By: #### C BC #### [facility] [address] [place] [address] Dr. Eli Jarvis MCH (RBC) [Entitic mass] 28.1 pg Normal 25.9-34.0 [facility] Comment on above: Performed By: #### C BC #### [facility] [address] [place] [address] Dr. Eli Jarvis MCHC (RBC) [Mass/Vol] 32.7 g/dL Normal 29.9-35.2 [facility] Comment on above: Performed By: #### C BC #### [facility] [address] [place] [address] Dr. Eli Jarvis MCV (RBC) [Entitic vol] 86.0 fL Normal 80.0-94.0 [facility] Comment on above: Performed By: #### C BC #### [facility] [address] [place] [address] Dr. Eli Jarvis MONO # 0.4 103/ul Normal 0.3-0.8 [facility] Comment on above: Performed By: #### C BC #### [facility] [address] [place] [address] Dr. Eli Jarvis Monocytes/100 WBC (Bld) 6.2 % Normal 1.7-12.0 [facility] Comment on above: Performed By: #### C BC #### [facility] [address] [place] [address] Dr. Eli Jarvis NEUT # 4.9 103/ul Normal 1.4-6.5 [facility] Comment on above: Performed By: #### C BC #### [facility] [address] [place] [address] Dr. Eli Jarvis Neutrophils/100 WBC (Bld) 71.0 % Normal 43.0-75.0 [facility] Comment on above: Performed By: #### C BC #### [facility] [address] [place] [address] Dr. Eli Jarvis Platelet mean volume (Bld) [Entitic vol] 9.9 fL Normal 9.5-13.5 [facility] Comment on above: Performed By: #### C BC #### [facility] [address] [place] [address] Dr. Eli Jarvis PLT 184 103/ul Normal 150-450 [facility] Comment on above: Performed By: #### C BC #### [facility] [address] [place] [address] Dr. Eli Jarvis RBC 4.73 106/ul Normal 4.70-6.10 [facility] Comment on above: Performed By: #### C BC #### [facility] [address] [place] [address] Dr. Eli Jarvis WBC 6.9 103/ul Normal 4.0-11.0 [facility] Comment on above: Performed By: #### C BC #### [facility] [address] [place] [address] Dr. Eli Jarvis LIPID PROFILEon 04-07-2022 CHOL-HDL RATIO NORM SEE BELOW Normal [facility] Comment on above: Result Comment: 3.3 - 4.4 LOW RISK 4.4 - 7.1 AVERAGE RISK 7.1 - 11.0 MODERATE RISK >11.0 HIGH RISK Performed By: #### C MP, LIPID ####[facility] [address] [place], [place] [address]Fk. Eli Jarvis Cholesterol [Mass/Vol] 127 mg/dL Normal <=200 [facility] Comment on above: Performed By: #### C MP, LIPID ####[facility] [address] [place], [place] [address]Ro. Eli Jarvis Cholesterol in HDL [Mass/Vol] 36 mg/dL Critically low 40-60 [facility] Comment on above: Performed By: #### C MP, LIPID ####[facility] [address] [place] [phone]. Eli Jarvis Cholesterol in LDL [Mass/Vol] 58.4 mg/dL Normal [facility] Comment on above: Performed By: #### C MP, LIPID ####[facility] [address] [place], [place] [address]Yv. Eli Jarvis Cholesterol.total/ Cholesterol in HDL [Mass ratio] 3.5 {ratio} Normal [facility] Comment on above: Performed By: #### C MP, LIPID ####[facility] [address] [place], [place] [address]We. Eli Jarvis HDL NORMAL > or = 60 mg/dl - LO W CARDIOVASCULAR RISK <40 mg/dl - HIGH CARDIOVASCULAR RISK Normal [facility] Comment on above: Performed By: #### C MP, LIPID ####[facility] [address] [place], [place] [address]Un. Eli Jarvis LDL CALC NORMAL SEE BELOW Normal [facility] Comment on above: Result Comment: <100 mg/dl OPTIMAL 100 - 129 mg/dl NEAR OR ABOVE OPTIMAL 130 - 159 mg/dl BORDERLINE HIGH 160 - 189 mg/dl HIGH >190 mg/dl VERY HIGH Performed By: #### C MP, LIPID ####[facility] [address] [place] [phone]. Eli Jarvis Triglyceride [Mass/Vol] 163 mg/dL Critically high <=150 [facility] Comment on above: Performed By: #### C MP, LIPID ####[facility] [address] [place] [address]Dr. Eli Jarvis VLDL CALC 32.6 mg/dL Normal [facility] Comment on above: Performed By: #### C MP, LIPID ####[facility] [address] [place] [address]Dr. Eli Jarvis PROF 14(COMP METB)on 022 Albumin [Mass/Vol] 3.8 g/dL Normal 3.4-5.0 [facility] Comment on above: Performed By: #### C MP, LIPID ####[facility] [address] [place] [address]Dr. Eli Jarvis Albumin/Globulin [Mass ratio] 1.1 {ratio} Normal [facility] Comment on above: Performed By: #### C MP, LIPID ####[facility] [address]ne[address]agtk[address] [place] [address]Dr. Eli Jarvis ALP [Catalytic activity/Vol] 89 U/L Normal 46-116 [facility] Comment on above: Performed By: #### C MP, LIPID ####[facility] [address] [place], [place] [address]Dr. Eli Jarvis ALT [Catalytic activity/Vol] 43 U/L Normal 16-63 [facility] Comment on above: Performed By: #### C MP, LIPID ####[facility] [address]znvwff[address] [place] [address]Dr. Eli Jarvis Anion gap [Moles/Vol] 10.7 mmol/L Normal [facility] Comment on above: Performed By: #### C MP, LIPID ####[facility] [address] [place] [address]Dr. Eli Jarvis AST [Catalytic activity/Vol] 24 U/L Normal 15-37 [facility] Comment on above: Performed By: #### C MP, LIPID ####[facility] [address]wbm[address] [place] [address]Dr. Eli Jarvis Bilirubin [Mass/Vol] 0.2 mg/dL Normal 0.2-1.0 [facility] Comment on above: Performed By: #### C MP, LIPID ####[facility] [address]fhuht[address] [place] [address]Dr. Eli Jarvis Calcium [Mass/Vol] 9.1 mg/dL Normal 8.5-10.1 [facility] Comment on above: Performed By: #### C MP, LIPID ####[facility] [address]ypvsy[address] [place] [address]Dr. Eli Jarvis Chloride [Moles/Vol] 104 mmol/L Normal 98-107 [facility] Comment on above: Performed By: #### C MP, LIPID ####[facility] [address] [place], [place] [address]Dr. Eli Jarvis CO2 [Moles/Vol] 27.5 mmol/L Normal 21.0-32.0 [facility] Comment on above: Performed By: #### C MP, LIPID ####[facility] [address]af[address] [place], [place] [address]Dr. Eli Jarvis Creatinine [Mass/Vol] 1.15 mg/dL Normal 0.70-1.30 [facility] Comment on above: Performed By: #### C MP, LIPID ####[facility] [address] [place], [place] [address]Dr. Eli Jarvis EGFR-AF SUDANESE >60 Normal >=60 [facility] Comment on above: Performed By: #### C MP, LIPID ####[facility] [address] [place], [place] [address]Dr. Eli Jarvis EGFR-NON AF SUDANESE >60 Normal >=60 [facility] Comment on above: Performed By: #### C MP, LIPID ####[facility] [address] [place], [place] [address]Dr. Eli Jarvis Globulin (S) [Mass/Vol] 3.4 g/dL Normal [facility] Comment on above: Performed By: #### C MP, LIPID ####[facility] [address] [place], [place] [address]Dr. Eli Jarvis Glucose [Mass/Vol] 157 mg/dL Critically high 74-106 [facility] Comment on above: Performed By: #### C MP, LIPID ####[facility] [address] [place] [address]Dr. Eli Jarvis Potassium [Moles/Vol] 4.2 mmol/L Normal 3.5-5.1 [facility] Comment on above: Performed By: #### C MP, LIPID ####[facility] [address] [place] [address]Dr. Eli Jarvis Protein [Mass/Vol] 7.2 g/dL Normal 6.4-8.2 [facility] Comment on above: Performed By: #### C MP, LIPID ####[facility] [address]so[address] [place] [address]Dr. Eli Jarvis Sodium [Moles/Vol] 138 mmol/L Normal 136-145 [facility] Comment on above: Performed By: #### C MP, LIPID ####[facility] [address] [place] [address]Dr. Eli Jarvis Urea nitrogen [Mass/Vol] 26.0 mg/dL Critically high 7.0-18.0 [facility] Comment on above: Performed By: #### C MP, LIPID ####[facility] [address] [place] [address]Dr. Eli Jarvis Urea nitrogen/Creatinin e [Mass ratio] 22.6 mg/mg Normal [facility] Comment on above: Performed By: #### C MP, LIPID ####[facility] [address] [place] [address]Dr. Eli Jarvis A1C HEMOGLOBINon 10-21-2021 HbA1c (Bld) [Mass fraction] 6.6 % [employer] Other Glucose - FINGER STICKon Glucose [Mass/Vol] 169 mg/dL [employer] Other HbA1c (Bld) [Mass fraction]o n 10-21-2021 A1C [facility]OGLOBIN [facility] Other Comprehensive Metabolic [facility] 07-29-2021 Albumin [Mass/Vol] 3.9 g/dL 3.2-5.5 [employer] Other Albumin/Globulin [Mass ratio] 1.6 {ratio} [employer] Other ALP [Catalytic activity/Vol] 63 U/L 32-92 [place] Other ALT [Catalytic activity/Vol] 32 U/L 10-60 [employer] Other AST [Catalytic activity/Vol] 32 U/L 10-42 [employer] Other Bilirubin [Mass/Vol] 0.5 mg/dL 0.3-1.2 [employer] Other Calcium [Mass/Vol] 9.7 mg/dL 8.2-10.2 [employer] Other Chloride [Moles/Vol] 105 mmol/L 95-114 [employer] Other CO2 [Moles/Vol] 22.7 mmol/L 22.0-30.0 [facility] [employer] Other Creatinine [Mass/Vol] 1.28 mg/dL 0.64-1.27 [employer] Other Glucose [Mass/Vol] 111 mg/dL 70-100 [employer] Other Potassium [Moles/Vol] 4.1 mmol/L 3.5-5.1 [employer] Other Protein [Mass/Vol] 6.3 g/dL 6.1-7.9 [employer] Other Sodium [Moles/Vol] 139 mmol/L 136-146 [employer] Other Urea nitrogen [Mass/Vol] 23 mg/dL 9-23 [employer] Other Comprehensive Metabolic Panel 55 [employer] Other Comprehensive Metabolic Panel > 60 [employer] Other Comprehensive Metabolic Panel 2.4 [employer] Other Hepatitis Acute Panelon 10-2 Hepatitis Acute Panel Negative Negative [employer] Other Hepatitis Acute Panel <0.1 0.0-0.9 [employer] Other Vital Signs Date Time Vital Sign Value Performing Clinician Facility 09-11-2023 11:00-0500 Body height 167.64 cm Tondra Mapus Other [employer] Other 09-11-2023 11:00-0500 Body mass index (BMI) [Ratio] 44.91 kg/m2 Tondra Mapus Other [employer] Other 09-11-2023 11:00-0500 Body weight 126.24 kg Tondra Mapus Other [employer] Other 09-11-2023 11:00-0500 Diastolic blood pressure 82 mm[Hg] Tondra Mapus Other [employer] Other 09-11-2023 11:00-0500 Respiratory rate 18 /min Tondra Mapus Other [employer] Other 09-11-2023 11:00-0500 SaO2% (BldA) [Mass fraction] 99 % Tondra Mapus Other [employer] Other 09-11-2023 11:00-0500 Systolic blood pressure 153 mm[Hg] Tondra Mapus Other [employer] Other 08-24-2023 13:45-0500 Body height 167.64 cm Eligio Soni Other [employer] Other 08-24-2023 13:45-0500 Body mass index (BMI) [Ratio] 44.22 kg/m2 Eligio Zachariah Other [employer] Other 08-24-2023 13:45-0500 Body temperature 97.4 [degF] Eligio Soni Other [employer] Other 08-24-2023 13:45-0500 Body weight 124.29 kg Eligio Zachariah Other [employer] Other 08-24-2023 13:45-0500 Diastolic blood pressure 60 mm[Hg] Eligio Soni Other [employer] Other 08-24-2023 13:45-0500 SaO2% (BldA) [Mass fraction] 97 % Eligio Soni Other [employer] Other 08-24-2023 13:45-0500 Systolic blood pressure 130 mm[Hg] Eligio Soni Other [employer] Other 03-07-2023 10:00-0400 Body height 167.64 cm Terry Kelley Other [employer] Other 03-07-2023 10:00-0400 Body mass index (BMI) [Ratio] 43.61 kg/m2 Terry Kelley Other [employer] Other 03-07-2023 10:00-0400 Body weight 122.56 kg Terry Kelley Other [employer] Other 03-07-2023 10:00-0400 Diastolic blood pressure 70 mm[Hg] Terry Kimblediff Other [employer] Other 03-07-2023 10:00-0400 Respiratory rate 20 /min Terry Kelley Other [employer] Other 03-07-2023 10:00-0400 SaO2% (BldA) [Mass fraction] 96 % Terry Kelley Other [employer] Other 03-07-2023 10:00-0400 Systolic blood pressure 134 mm[Hg] Terry Kelley Other [employer] Other 02-14-2023 09:45-0400 Body height 172.72 cm Tondra Mapus Other [employer] Other 02-14-2023 09:45-0400 Body mass index (BMI) [Ratio] 41.32 kg/m2 Tondra Mapus Other [employer] Other 02-14-2023 09:45-0400 Body weight 123.29 kg Tondra Mapus Other [employer] Other 02-14-2023 09:45-0400 Diastolic blood pressure 82 mm[Hg] Tondra Mapus Other [employer] Other 02-14-2023 09:45-0400 Respiratory rate 18 /min Tondra Mapus Other [employer] Other 02-14-2023 09:45-0400 SaO2% (BldA) [Mass fraction] 97 % Tondra Mapus Other [employer] Other 02-14-2023 09:45-0400 Systolic blood pressure 157 mm[Hg] Aldo Middleton Other [employer] Other 01-20-2023 12:15-0400 Body height 172.72 cm Carito Fitt Other [employer] Other 01-20-2023 12:15-0400 Body mass index (BMI) [Ratio] 40.71 kg/m2 Carito Fitt Other [employer] Other 01-20-2023 12:15-0400 Body weight 121.47 kg Carito Fitt Other [employer] Other 01-05-2023 11:15-0400 Body height 172.72 cm Terry Kelley Other [employer] Other 01-05-2023 11:15-0400 Body mass index (BMI) [Ratio] 40.96 kg/m2 Terry Kelley Other [employer] Other 01-05-2023 11:15-0400 Body weight 122.2 kg Terry Kelley Other [employer] Other 01-05-2023 11:15-0400 Diastolic blood pressure 73 mm[Hg] Terry Kelley Other [employer] Other 01-05-2023 11:15-0400 Respiratory rate 18 /min Terry Kelley Other [employer] Other 01-05-2023 11:15-0400 SaO2% (BldA) [Mass fraction] 98 % Terry Kelley Other [employer] Other 01-05-2023 11:15-0400 Systolic blood pressure 143 mm[Hg] Terry Kelley Other [employer] Other 11-24-2022 12:15-0500 Body height 172.72 cm Carito Fitt Other [employer] Other 11-24-2022 12:15-0500 Body mass index (BMI) [Ratio] 42.22 kg/m2 Carito Fitt Other [employer] Other 11-24-2022 12:15-0500 Body weight 125.96 kg Carito Fitt Other [employer] Other 11-18-2022 11:15-0500 Body height 172.72 cm Terry Kelley Other [employer] Other 11-18-2022 11:15-0500 Body mass index (BMI) [Ratio] 41.96 kg/m2 Terry Kelley Other [employer] Other 11-18-2022 11:15-0500 Body weight 125.19 kg Terry Kelley Other [employer] Other 11-18-2022 11:15-0500 Diastolic blood pressure 75 mm[Hg] Terry Kelley Other [employer] Other 11-18-2022 11:15-0500 Respiratory rate 18 /min Terry Kelley Other [employer] Other 11-18-2022 11:15-0500 SaO2% (BldA) [Mass fraction] 99 % Terry Kimblediff Other [employer] Other 11-18-2022 11:15-0500 Systolic blood pressure 148 mm[Hg] Terry Kimblediff Other [employer] Other 11-07-2022 10:15-0500 Body height 172.72 cm Tondra Mapus Other [employer] Other 11-07-2022 10:15-0500 Body mass index (BMI) [Ratio] 42.58 kg/m2 Tondra Mapus Other [employer] Other 11-07-2022 10:15-0500 Body weight 127.05 kg Tondra Mapus Other [employer] Other 11-07-2022 10:15-0500 Diastolic blood pressure 83 mm[Hg] Tondra Mapus Other [employer] Other 11-07-2022 10:15-0500 Respiratory rate 18 /min Tondra Mapus Other [employer] Other 11-07-2022 10:15-0500 SaO2% (BldA) [Mass fraction] 98 % Tondra Mapus Other [employer] Other 11-07-2022 10:15-0500 Systolic blood pressure 170 mm[Hg] Tondra Mapus Other [employer] Other 10-18-2022 15:00-0500 Body height 172.72 cm Carito West Other [employer] Other 2022 16:15-0400 Body height 172.72 cm Carito Fitt Other [employer] Other 07-27-2022 12:00-0400 Body height 172.72 cm Tondra Mapus Other [employer] Other 07-27-2022 12:00-0400 Body mass index (BMI) [Ratio] 40.9 kg/m2 Tondra Mapus Other [employer] Other 07-27-2022 12:00-0400 Body weight 122.02 kg Tondra Mapus Other [employer] Other 07-27-2022 12:00-0400 Diastolic blood pressure 75 mm[Hg] Tondra Mapus Other [employer] Other 07-27-2022 12:00-0400 Respiratory rate 20 /min Tondra Mapus Other [employer] Other 07-27-2022 12:00-0400 SaO2% (BldA) [Mass fraction] 97 % Tondra Mapus Other [employer] Other 07-27-2022 12:00-0400 Systolic blood pressure 141 mm[Hg] Tondra Mapus Other [employer] Other 06-08-2022 10:45-0400 Body height 172.72 cm Carito Fitt Other [employer] Other 04-21-2022 12:00-0400 Body height 172.72 cm Tondra Mapus Other [employer] Other 04-21-2022 12:00-0400 Body mass index (BMI) [Ratio] 39.67 kg/m2 Tondra Mapus Other [employer] Other 04-21-2022 12:00-0400 Body weight 118.34 kg Tondra Mapus Other [employer] Other 04-21-2022 12:00-0400 Diastolic blood pressure 74 mm[Hg] Tondra Mapus Other [employer] Other 04-21-2022 12:00-0400 Respiratory rate 20 /min Tondra Mapus Other [employer] Other 04-21-2022 12:00-0400 SaO2% (BldA) [Mass fraction] 97 % Tondra Mapus Other [employer] Other 04-21-2022 12:00-0400 Systolic blood pressure 143 mm[Hg] Tondra Mapus Other [employer] Other 10-21-2021 12:00-0500 Body height 172.72 cm Tondra Mapus Other [employer] Other 10-21-2021 12:00-0500 Body mass index (BMI) [Ratio] 40.14 kg/m2 Tondra Mapus Other [employer] Other 10-21-2021 12:00-0500 Body weight 119.75 kg Tondra Mapus Other [employer] Other 10-21-2021 12:00-0500 Diastolic blood pressure 78 mm[Hg] Tondra Mapus Other [employer] Other 10-21-2021 12:00-0500 Respiratory rate 20 /min Tondra Juanitaus Other [employer] Other 10-21-2021 12:00-0500 SaO2% (BldA) [Mass fraction] 97 % Tondra Mapus Other [employer] Other 10-21-2021 12:00-0500 Systolic blood pressure 147 mm[Hg] Tondra Mapus Other [employer] Other 07-21-2021 15:45-0400 Body height 172.72 cm Morgan Kunz Other [employer] Other 07-21-2021 15:45-0400 Body mass index (BMI) [Ratio] 38.77 kg/m2 Morgan Kunz Other [employer] Other 07-21-2021 15:45-0400 Body weight 115.67 kg Morgan Kunz Other [employer] Other 12-14-2017 15:17-0500 Body height 170.18 cm MD Scarlet Johnson Work Phone: [facility] Encounters Encounter Date Encounter Type Care Provider Facility Start: 11-06-2024 ambulatory Araceli BERMUDEZ Facility :[facility] [place] Start: 05-13-2024 ambulatory Everett Miner Facility :[facility] Start: 12-21-2023 ambulatory Everett Miner Facility :[facility] [place] Start: 10-18-2023 End: 10-19-2023 ambulatory Araceli BERMUDEZ Facility:[facility] [place] Start: 10-16-2023 End: 10-17-2023 ambulatory Miguelangel Mac MD Facility: [facility] Start: 09-25-2023 End: 09-26-2023 ambulatory Miguelangel Mac MD Facility:[facility] Start: 09-20-2023 End: 09-21-2023 ambulatory Everett Miner Facility:[facility] Joc[facility] Start: 09-12-2023 End: 09-12-2023 ambulatory Tondra Mapus Other [employer] Other Start: 09-12-2023 Telephone encounter Tondra Mapus [facility] Start: 09-11-2023 (DM) Diabetes Tondra Mapus [facility] Start: 09-11-2023 End: 09-11-2023 ambulatory Daniel Everett Facility:[facility] Start: 08-24-2023 End: 08-24-2023 Patient encounter procedure MD Scarlet Johnson Work Phone: [facility] Start: 08-24-2023 End: 08-24-2023 ambulatory MD Scarlet Johnson Work Phone: [facility] Work Phone: Start: 08-24-2023 Office outpatient ne w 60 minutes Eligio Soni [facility] Start: 08-21-2023 End: 08-22-2023 ambulatory Everett Miner Facility: [facility] Start: 07-26-2023 End: 07-27-2023 ambulatory Everett Miner Facility:[facility] Start: 06-27-2023 ambulatory Everett Miner Facility:[facility] Start: 06-26-2023 End: 06-27-2023 ambulatory Kaleb Mallory Facility:[facility] Start: 06-21-2023 End: 06-21-2023 [facility] Start: 06-19-2023 End: 06-20-2023 ambulatory Miguelangel Mac MD Facility:[facility] Start: 06-14-2023 End: 06-14-2023 ambulatory Tondra Mapus Other [employer] Other Start: 06-14-2023 Telephone encounter Aldo Middleton [facility] Start: 06-09-2023 End: 06-09-2023 ambulatory Carito West Other [employer] Other Start: 06-09-2023 Nursing evaluation o f patient and report [facility]ito [facility] Start: 06-09-2023 Registered Recurring MD Scarlet franks [facility] Work Phone: Start: 06-05-2023 End: 06-06-2023 ambulatory [facility] Start: 05-31-2023 End: 05-31-2023 ambulatory Ton Emi Other [employer] Other Start: 05-31-2023 Telephone encounter Aldo Middleton [facility] Start: 05-22-2023 End: 05-23-2023 ambulatory Miguelangel Mac MD Facility:[facility] Start: 05-15-2023 End: 05-16-2023 ambulatory Everett Miner Facility:[facility] Start: 05-10-2023 Encounter for genera l adult medical examination without abnormal findings Everett Miner [facility] Start: 05-10-2023 End: 05-11-2023 ambulatory Everett Miner Facility:[facility] Start: 04-27-2023 End: 04-28-2023 ambulatory Everett Miner Facility:[facility] [place] [facility] Start: 03-14-2023 End: 03-15-2023 ambulatory SALES ACCOUNT SPECIALIST Nanette Barajas Facility:[facility] [place] [facility] Start: 03-10-2023 ambulatory Everett Miner Facility:[facility] Start: 03-07-2023 Follow-up encounter Terry moreno [facility] Start: 03-07-2023 End: 03-08-2023 ambulatory Terry Kelley [facility] [employer] Other Start: 02-17-2023 End: 02-17-[address] JOVITA WOODARD . Facility:[facility] Start: 02-14-2023 (DM) Diabetes Tondra Emi [facility] Start: 02-14-2023 End: 02-14-2023 ambulatory Tondra Mapus Other [employer] Other Start: 01-23-2023 End: 01-23-2023 ambulatory [facility] Start: 01-20-2023 ([facility] FU) [facility] F/ U Registerd Unarmed Security Officer Carito West [facility] Start: 01-20-2023 End: 01-20-2023 ambulatory Carito West Other [employer] Other Start: 01-05-2023 End: 01-05-2023 ambulatory Terry Kelley Other [employer] Other Start: 01-05-2023 Follow-up encounter Terry moreno [facility] Start: 12-30-2022 End: 12-31-2022 ambulatory MARY VALENZUELACKER Facility:[facility] Start: 12-29-2022 End: 12-30-[address] BRITTNY MORALES Facility:[facility] Start: 12-21-2022 End: 01-28-[address] SCARLET JOHNSON . Facility:[facility] Start: 12-09-[address] SCARLET JOHNSON . Facil ity:[facility] Start: 12-08-2022 End: 12-09-[address] MORGAN ROJO Facility:[facility] Start: 11-25-2022 End: 11-26-[address] TERRY KELLEY Facility:[facility] Start: 11-25-2022 ambulatory [facility] Start: 11-24-2022 ([facility] WM[facility]) [facility] Initial Provider Carito Bea[facility] Start: 11-24-2022 End: 11-24-2022 ambulatory Carito Fitt Other [employer] Other Start: 11-22-2022 End: 11-22-2022 ambulatory Tondra Mapus Other [employer] Other Start: 11-22-2022 Nursing evaluation o f patient and report Tondra Emi [facility] Start: 11-18-2022 End: 11-18-2022 ambulatory Terrynikolai Kimblediff Other [employer] Other Start: 11-18-2022 Nutrition therapy Terry Kelley [facility] Start: 11-08-2022 End: 11-09-[address] SCARLET JOHNSON . Facility: Start: 11-07-2022 (DM) Diabetes Tondra Emi [facility] Start: 11-07-2022 End: 11-07-2022 ambulatory Tondra Juanitaus Other [employer] Other Start: 10-18-2022 (RD) Apprentice Cosmetologist Carito [facility] Start: 10-18-2022 End: 10-18-2022 ambulatory Carito West Other [employer] Other Start: 08-18-2022 End: 08-19-[address] BRITTNY MORALES Facility:[facility] Start: 2022 ([facility] DB FU) [facility] Diabetes F/U Carito West [facility] Start: 2022 End: 08-11-[address] ARACELI BERMUDEZ [place] [employer] Other Start: 07-29-2022 End: 07-30-[address] SCARLET JOHNSON . Facility: Start: 07-27-2022 (DM) Diabetes Tondra Juanita [facility] Start: 07-27-2022 End: 07-27-2022 ambulatory Tondra Mapus Other [employer] Other Start: 06-08-2022 (Unarmed Security Officer) Unarmed Security Officer Carito moreno [facility] Start: 06-08-2022 End: 06-08-2022 ambulatory Carito West Other [employer] Other Start: 04-21-2022 (DM) Diabetes Tondra Mapus [facility] Start: 04-21-2022 End: 04-21-2022 ambulatory Tondra Mapus Other [employer] Other Start: 04-21-2022 Telephone encounter Tondra Mapus [facility] Start: 04-07-2022 End: 04-08-[address] SCARLET JOHNSON . Facility: Start: 10-21-2021 (DM) Diabetes Tondra Mapus [facility] Start: 10-21-2021 End: 10-21-2021 ambulatory Tondra Mapus Other [employer] Other Start: 07-21-2021 Office outpatient ne w 45 minutes Morgan Kunz [facility] Procedures Date Procedure Procedure Detail Performing Clinician Start: 08-24-2023 Duplex scan of lower limb veins MD Scarlet Johnson Work Phone: Immunizations Immunization Date Immunization Notes Care Provider Fa selvinty 12-30-2020 COVID-19 Vaccine Moderna - Documentation Purposes Only Morgan Kunz Other [employer] Other 12-02-2020 COVID-19 Vaccine Moderna - Documentation Purposes Only Morgan Kunz Other [employer] Other Payers Date Payer Category Payer Medicare 2022 Unknown 2017 Self-pay [id number] 2017 Unknown [id number] 1960 Medicare [id number] 2.1 [id number] 1959 Unknown [id number] 2. 16.840.1.335508.19 1949 Unknown [id number] 2.16.84 0.1.917111.3.579.2.593 1949 Unknown [id number] 2.16.84 0.1.201088.3.579.2.593 1949 Unknown [id number] 2.16.84 0.1.444540.3.579.2.593 1949 Unknown [id number] 2.16.84 0.1.072716.3.579.2.593 1949 Unknown [id number] 2.16.84 0.1.846209.3.579.2.593 1949 Unknown [id number] 2.16.84 0.1.740999.3.579.2.593 1949 Unknown [id number] 2.16.84 0.1.788579.3.579.2.593 1949 Unknown [id number] 2.16.84 0.1.919245.3.579.2.593 1949 Unknown [id number] 2.16.84 0.1.141305.3.579.2.593 1949 Unknown [id number] 2.16.84 0.1.967520.3.579.2.593 1949 Unknown [id number] 2.16.84 0.1.000356.3.579.2.593 1949 Unknown [id number] 2.16.84 0.1.899025.3.579.2.593 1949 Unknown [id number] 2.16. 840.1.600614.3.579.2.196 1949 Unknown [id number] 2.16. 840.1.427039.3.579.2.196 1949 Unknown [id number] 2.16. 840.1.687029.3.579.2. 1949 Unknown [id number] 2.16. 840.1.683752.3.579.2.196 1949 Unknown [id number] 2.16. 840.1.121919.3.579.2.196 1949 Unknown [id number] 2.16.8 40.1.943007.3.579.2.72 1949 Unknown [id number] 2.16.8 40.1.150388.3.579.2. 1949 Unknown [id number] 2.16.8 40.1.749602.3.579.2. 1949 Unknown [id number] 2.16.8 40.1.955997.3.579.2. 1949 Unknown [id number] 2.16.8 40.1.233674.3.579.2. 1949 Unknown [id number] 2.16.8 40.1.529955.3.579.2. 1949 Unknown [id number] 2.16.8 40.1.221842.3.579.2.72 1949 Unknown [id number] 2.16.8 40.1.452975.3.579.2.72 1949 Unknown [id number] 2.16.8 40.1.176783.3.579.2.72 1949 Unknown [id number] 2.16.8 40.1.823008.3.579.2. 1949 Unknown [id number] 2.16.8 40.1.047165.3.579.2.72 1949 Unknown [id number] 2.16.8 40.1.407472.3.579.2727 1949 Unknown [id number] 2.16.8 40.1.622602.3.579.2.727 Unknown [employer] Ins [id number] Unknown [id number] 2.16.8 40.1.010578.3.579.2.531 Unknown [id number] 2.16.8 40.1.943182.3.579.2.531 Unknown [id number] 2.16.8 40.1.984590.3.579.2.531 Social History Date Type Detail Facility Unknown if ever smoked [employer] Other Sex Assigned At Sex Assigned At Bir th [employer] Other Start: 1950 Sex Assigned At Male F [facility] Medical Equipment Procedure Code Equipment Code [...] see above Sep, Albuminuria (ICD-10 - R80.9) 8/ m/a cr ratio 159 reviewed importance of glucose/bp control to prevent further nephropathy Sep, BMI 40.0-44.9, adult (ICD-10 - Z68.41) Heart healthy diet material was printed Sep, Current use of insulin (ICD-10 - Z79.4) [employer] Other 11-16-2023 Evaluation note* Encounter Date Diagnosis Assessment Notes Treatment Notes Treatment Clinical Notes Aug, Cellulitis of right lower extremity (ICD-10 - L03.115) I did thoroughly review all the studies from [facility]. I do not have any images to [...] was very disappointed to hear this. But [facility] came to the same result. Dr. Rojo and I both agree that there is nothing surgical to offer this patient with his arteries or veins. Unfortunately he needs traditional conservative management which will include weight loss exercise and compression therapy. [employer] Other 09-13-2023 NotePatient here for 6 mo follow up CAD, hypertension, and hyperlipidemia. Denies chest pain and palpitations. Says his SOB w/ exertion remains unchanged. C/o RLE edema w/ poor wound healing. He's seeing wound care at [facility] in [place]. Had normal NARAYAN's in Jul 2022. RLE venous doppler was negative for DVT in December 2022.[facility]09-13-2023 NoteCardiovascular Medicine [facility] SUBJECTIVE Dong Whitmore is a 72 [...] Obesity Sleep apnea Type 2 diabetes mellitus ([facility]) Past Medical History: Diagnosis Date CAD (coronary artery disease) DM type 2 (diabetes mellitus, type 2) ([facility]) HLD (hyperlipidemia) HTN (hypertension) Neuropathy ULISES [...] acute or reversible is (more content not included)...[facility]09-01-2023 Evaluation note* Encounter Date Diagnosis Assessment Notes Treatment Notes Treatment Clinical Notes Jun, Type 2 diabetes mellitus with diabetic chronic kidney disease (ICD-10 - E11.22) Dong and his came in today for s[employer] 3 training and refresher on his insulin [...] He was given a no cut Grif Transcription Manager to try and a brochure to buy them online. We discussed the Novolog pen and that he is to use it if his BG before a meal is greater than 150. He was able to dial the pen and knows how to put the pen needle on and deliver the dose. 30 minutes were spent educating the patient by Kamlesh Sparrow RN, [facility]. [employer] Other 05-30-2023 Evaluation note* Encounter Date Diagnosis [...] February, Metabolic syndrome X (ICD-10 - E88.81) [employer] Other 05-09-2023 Evaluation note* Encounter Date Diagnosis [...] hyperglycemia, or diabetes medication issues. 6. Prescriptions: [facility]: Pioglitizone sent. 7. Prescriptions will not be [...] last visit, continue with weight loss efforts [employer] Other 04-17-2023 NotePatient here for follow up [...] pain. All other systems reviewed and are negative.[facility] 01-23-2023 NoteCardiovascular Medicine [facility] SUBJECTIVE Chief Complaint Patient presents with [...] is currently at a weightloss program at [facility]. He is seeing the graphotype operator. 01/23/2023 He is down about 10lbs since [...] Obesity Sleep apnea Type 2 diabetes mellitus ([facility]) Past Medical History: Diagnosis Date CAD (coronary artery disease) DM type 2 (diabetes mellitus, type 2) ([facility]) HLD (hyperlipidemia) HTN (hypertension) Neuropathy ULISES [...] Edema present. Left l (more content not included)...[facility] 01-20-2023 Evaluation note* Encounter Date Diagnosis Assessment [...] the following goals: Add flavors to vegetables [employer] Other 04-05-2023 [facility] Evaluation note* Encounter Date Diagnosis Assessment [...] Dec, Metabolic syndrome X (ICD-10 - E88.81) [employer] Other 03-23-2023 NoteCARDIAC STRESS TEST Requesting Physician: [...] interpreted and reported nuclear myocardial perfusion imaging.[facility] [place] [address]-17-2023 NoteCardiovascular Medicine [facility] SUBJECTIVE Chief Complaint Patient presents with Coronary [...] is currently at a weightloss program at [facility]. He is seeing the graphotype operator. Patient Active Problem List Diagnosis Chest pain Chronic back pain Essential hypertension Gastroesophageal reflux disease Hyperlipidemia Neuropathy Obesity Sleep apnea Type 2 diabetes mellitus ([facility]) Past Medical History: Diagnosis Date CAD (coronary artery disease) DM type 2 (diabetes mellitus, type 2) ([facility]) HLD (hyperlipidemia) HTN (hypertension) Neuropathy ULISES [...] 26, K 4.2, G (more content not included)...[facility]02[facility]23 NotePatient here for 6 mo follow up CAD, hypertension, and hyperlipidemia. He had routine labs 2 weeks ago, and had NARAYAN's in Jul 2022. He is now seeing a graphotype operator and a diabetic specialist at [facility]. Says his MILLER is [...] pain. All other systems reviewed and are negative.[facility] 11-24-2022 Evaluation note* Encounter Date Diagnosis Assessment [...] following goals: 1) Increase vegetables at dinner [employer] Other 02-14-2023 Evaluation note* Encounter Date Diagnosis [...] him and his by Kamlesh Sparrow RN, [facility]. Reviewed cgm download 11/08/22-11/20/22: Avg glucose 171. >250-1%, >180-30%, 70-180-69%, <70-0%, <540%. CV 15..2%. [employer] LUISA, CHARMAINE-C, BC-ADM [employer] Other 02-10-2023 Evaluation note* Encounter Date Diagnosis [...] Nov, Metabolic syndrome X (ICD-10 - E88.81) [employer] Other 01-30-2023 Evaluation note* Encounter Date Diagnosis [...] medication issues. 6. Prescriptions: Acarbose sent to [facility]. Sample baylee 2 cgm given today. 7. [...] with Dr. Kelley for weight management Oct, Other Dong was giv en a sample Baylee 2 sensor and an office owned, [employer]. His phone was not compatible with Baylee 2 or 3, or Dexcom G6. He previously wore the Baylee 14 day system and did not need training on applying the device. I did train him on the use of the reader. He was vgiven samples of Grif Ditching Machine Operator and Skin Tac to help keep the device in place. 45 minutes were spent educating the patient by Kamlesh Sparrow RN, [facility]. [employer] Other 01-10-2023 Evaluation note* Encounter Date Diagnosis [...] program2) Try roasted cronin peppers (recipe provided) [employer] Other 11-11-2022 NotePROCEDURE: XR FOOT RT MIN [...] Electronically authenticated by: BRITTNY MORALES Date: 2022-08-19 06:17[facility]11-02-2022 Evaluation note* Encounter Date Diagnosis Assessment Notes [...] nuts or cheese + crackers -Only likes norwegian cheese,-Recommended 15g or less for snacks; so [...] likes those-Increase vegetable intake-Vegetables: corn, peas, carrots [employer] Other 10-19-2022 Evaluation note* Encounter Date Diagnosis [...] referral to Dr. Kelley for weight management [employer] Other 08-31-2022 Evaluation note* Encounter Date Diagnosis [...] and his would cook it for him [employer] Other 07-14-2022 Evaluation note* Encounter Date Diagnosis [...] improved glycemia. Pt would likek referral to graphotype operator. Note pt has intolerance to glp1 class [...] of glucose/bp control to prevent further nephropathy [employer] Other 01-13-2022 Evaluation note* Encounter Date Diagnosis [...] medication issues. 6. Prescriptions: Pioglitazone sent to [facility]. Oct, Hyperlipidemia, unspecified hyperlipidemia type (ICD-10 - [...] brochure given today. Recommend call if interested. [employer] Other 10-13-2021 Evaluation note* Encounter Date Diagnosis Assessment Notes Treatment Notes Treatment Clinical Notes Jul, MEDEIROS (nonalcoholic steatohepatitis) (ICD-10 - K75.81) Jul, Other [facility] INDICATED ABOVE F/U HERE PRN [employer] Other Evaluation noteNo InformationN[employer] Other Evaluation noteNo assessment information available [facility] Work Phone: [facility] general Narrative - Reported* Type Description Date [...] first metatarsal 11-16-18 Hospitalization History see above [employer] Other Hisinvs general Narrative - Reported* Type Description Date [...] Foot Surgery 10/27/2021 Hospitalization History see above [employer] Other Hissscc general Narrative - Reported* Type Description Date [...] stones removed Surgical History heart surgery and 6-20 13 Surgical History prostate Surgical History AMPUTATION second me tatarsal and partial right first metatarsal 11-16-18 Surgical History Foot Surgery 10/27/2021 Hospitalization History see above [employer] Other Summary Purpose Family History No Family [...] up, Type 2 NIDDM f/u with [employer] MASTER SHEET CLERK, SALES ACCOUNT SPECIALIST-C, BC-ADMlab resultsDM 6 month follow up, Type 2 NIDDM f/u with [employer] MASTER SHEET CLERK, SALES ACCOUNT SPECIALIST-C, BC-ADMDM dieticianDM 3 month F/U, Type 2 NIDDM f/u with [employer] MASTER SHEET CLERK, SALES ACCOUNT SPECIALIST- C, BC-ADM2nd DM visitDM 3rd visit (1st of the year)DM 3 month follow up, Type 2 NIDDM f/u with [employer] MASTER SHEET CLERK, SALES ACCOUNT SPECIALIST-C, BC-ADMWMN initialcgm DownloadNo InformationWMN Dr Alston/URGeorgiana WM f/uDM 3 month follow up, Type 2 NIDDM f/u with [employer] MASTER SHEET CLERK, SALES ACCOUNT SPECIALIST-C, BC-ADM2 month Follow uporder for baylee 3 reader/sensorsInsulin pen trainingTKM Insulin pen questionsReferred by Dr. Everett Miner for stasis ulcer right legDM 3 month follow up, Type 2 IDDM f/u with [employer] MASTER SHEET CLERK, SALES ACCOUNT SPECIALIST-C, BC-ADMlab resultlab result (unrecognized sect ion and content) No Status Records FoundNo Status Records FoundNo Status Records FoundNo Status Records FoundNo Status Records Found INFORMATION SOURCE (unrecogn ized section and content) DATE CREATED AUTHOR 02/20/2023 [facility] DATE CREATED AUTHOR AUTHOR'S ORGANIZ ATION 07/03/2023 [facility] DATE CREATED AUTHOR AUTHOR'S ORGANIZ ATION 09/12/2023 [facility] DATE CREATED AUTHOR AUTHOR'S ORGANIZ ATION 10/18/2023 [facility] DATE CREATED AUTHOR AUTHOR'S ORGANIZ ATION 11/07/2023 [facility] Care Teams (unrecognized sec tion and [...] BE BASED ON THE PRIMARY CLINICAL RECORDS. [employer] provides no warranty or guarantee of the accuracy or completeness of information in this document.
== END 2023-11-10 08:56 | disposition home or self-care (01) ==
LOC: RAD 08:59
PROVIDERS: PCP Family Medicine; Visit Provider Physician Assistant
DX: N20.0 Calculus of kidney (principal)
CPT/HCPCS: 74018

== ENCOUNTER 2023-12-04 08:00 | Day surgery (SDC) | payer MEDICARE, OTHER, SELFPAY ==
[2023-12-04 07:57] VITALS: BP 149/78; PULSE 64; RESP 16; TEMP 36.6; O2SAT 97
[2023-12-04 08:10] LABS: Glucometer 131 mg/dL (74-106)
[2023-12-04] MEDS: 0.9 % SODIUM CHLORIDE 500 ML 50 ML IV (08:18)
[2023-12-04] MEDS: LEVOFLOXACIN IN DEXTROSE 5 % 500 MG/100 ML PIGGYBACK 100 MG IV (09:03)
[2023-12-04] MEDS: LIDOCAINE HCL 2%-EPINEPHRINE 1:100,000 20 ML MDV 10 ML INJ (10:00)
[2023-12-04] MEDS: BUPIVACAINE HCL 0.5% PF 50 MG/10 ML VIAL INJ (10:01)
--- NOTE | 2023-12-04 10:15 | W.PM.PROCNOT ---
Date of procedure: 12/04/23 Pre-op diagnosis: Lumbar stenosis with neurogenic claudication, painful diabetic neuropathy Post-op diagnosis: same as pre-op Procedure: Procedure Performed by: Miguelangel Mac M.D. Procedure: Placement of [employer] 16 contact neuroelectrode trial leads (x two) under fluoroscopic guidance *Needle Research Hydrologist at the interspace below L2/3 *Final Lead Placement Level at the top of the vertebral body T7 Anesthesia: Monitored Anesthesia Care is medically necessary for the procedure due to the procedure requiring the patient to remain motionless for a prolonged period of time. Procedure: Risks, Benefits, Alternatives were reviewed and informed consent was obtained in the preop holding area. All questions were answered appropriately. The patient was brought to the operating room and placed in the prone position with padding under all bony prominences. A pre-procedure time out was performed specifying pt. name, nature site and side of surgery, and allergies. Anesthesia provided appropriate sedation as the skin over the thoracic and lumbar spine were prepped with duraprep and draped in the usual sterile fashion. Under fluoroscopic guidance, the above noted interspace was identified as the site for epidural needle entry. The skin and subcutaneous tissues were anesthetized approximately 1 level inferior to this point with a mixture of 1% lidocaine and 0.25% bupivacaine. Two 14 gauge tuouy needles were inserted to the superior aspect of the lamina just inferior to the target interspace. Then, using loss of resistance technique as well as fluoroscopic guidance, the epidural space was entered. Two [employer] Trial Stimulator Leads were then advanced under intermittent fluoroscopic guidance until the distal tip of the electrode was observed to be in position at the final position noted above. After appropriate electrode placement was achieved, stimulation was tested intraoperatively with multiple lead configurations until concordant paresthesias were obtained covering the areas of the patients pain. At this point, the needles and stylets were removed carefully and the leads were secured to the skin using steri-strips. The region was covered using a sterile tegaderm bandage. The patient was escorted to the recovery area in stable condition having tolerated the procedure well. Anesthesia: MAC Surgeon: Miguelangel Mac Pathology: none sent Condition: stable Disposition: no change
[2023-12-04 10:20] VITALS: BP 164/83; PULSE 75; RESP 15; TEMP 36.5; O2SAT 96
[2023-12-04 10:22] VITALS: BP 132/67; PULSE 72; RESP 16; TEMP 36.5; O2SAT 96
--- OUTSIDE RECORDS SUMMARY | 2023-12-04 10:22 | XMS_ITS | CCD ---
Author Name Unknown Address [address] [place] [address] Organization [facility] Care Team Providers Care Pathological Technician Name Role Phone Morgan Kunz Unavailable Aldo Middleton Unavailable Carito West Unavailable Terry Franklin Unavailable DR TERRY FRANKLIN Consulting Unavailable JOHNSON ., DR SCARLET Bledsoe Primary Care Unavailable DR TERRY FRANKLIN Attending Unavailable DR TERRY FRANKLIN Admitting Unavailable SU, DR MORGAN Miranda Consulting Unavailable JOHNSON ., DR SCARLET Bledsoe Primary Care Unavailable ANDREA SIMPSON Attending Unavailable ANDREA SIMPSON Admitting Unavailable ANDREA SIMPSON Consulting Unavailable ANDREW, DR BRITTNY Hemphill Consulting Unavailable JOHNSON ., DR SCARLET Bledsoe Primary Care Unavailable MARY JOHNSON Attending Unavailable MARY JOHNSON Admitting Unavailable MARY JOHNSON Consulting Unavailable MARY JOHNSON Consulting Unavailable JOHNSON ., DR SCARLET Bledsoe Primary Care Unavailable MARY JOHNSON Attending Unavailable MARY JOHNSON Admitting Unavailable JOHNSON ., DR SCARLET Bledsoe Consulting Unavailable JOHNSON ., DR SCARLET Bledsoe Primary Care Unavailable JOHNSON ., DR SCARLET Bledsoe Attending Unavailable JOHNSON ., DR SCARLET Bledsoe Admitting Unavailable JOHNSON ., DR SCARLET Bledsoe Consulting Unavailable JOHNSON ., DR SCARLET Bledsoe Primary Care Unavailable JOHNSON ., DR SCARLET Bledsoe Attending Unavailable JOHNSON ., DR SCARLET Bledsoe Admitting Unavailable LATRICIA, DR ARACELI Treadwell Consulting Unavailable JOHNSON ., DR SCARLET Bledsoe Primary Care Unavailable LATRICIA, DR ARACELI Treadwell Attending Unavailable DR ARACELI ROME Admitting Unavailable DR MORGAN BLUE V Consulting Unavailable DR BRITTNY AGUDELO Consulting Unavailable JOHNSON ., DR SCARLET Bledsoe Primary Care Unavailable ROLANDO SORIA Attending Unavailable ROLANDO SORIA Admitting Unavailable ROLANDO SORIA Consulting Unavailable JOHNSON ., DR SCARLET Bledsoe Consulting Unavailable JOHNSON ., DR SCARLET Bledsoe Primary Care Unavailable JOHNSON ., DR SCARLET Bledsoe Attending Unavailable JOHNSON ., DR SCARLET Bledsoe Admitting Unavailable JOHNSON ., DR SCARLET Bledsoe Primary Care Unavailable JOHNSON ., DR SCARLET Bledsoe Attending Unavailable JOHNSON ., DR SCARLET Bledsoe Admitting Unavailable PAY ., DR HUSSEIN Consulting Unavailable PAY ., DR HUSSEIN Attending Unavailable PAY ., DR HUSSEIN Admitting Unavailable JOHNSON ., DR SCARLET Bledsoe Primary Care Unavailable JOHNSON ., DR SCARLET Bledsoe Primary Care Unavailable JOHNSON ., DR SCARLET Bledsoe Attending Unavailable JOHNSON ., DR SCARLET Bledsoe Admitting Unavailable ELAINE BRENNAN Attending Unavailable MARY JOHNSON Attending Unavailable MARY JOHNSON Attending Unavailable Eligio Soni Unavailable MD Daniel Everett Attending Provider MD Scarlet Johnson Primary Care Provider [phone] MD Eligio Soni Attending Provider Bubba SCHUSTER, Andrius Missy Attending Unavailable Bubba SCHUSTER, Andrius Vytsandy Attending Unavailable Gidelfin SCHUSTER, Andrius Vytautmariann Attending Unavailable Gidelfin SCHUSTER, Andrius Vytautas Attending Unavailable Gidelfin SCHUSTER, Andrius Vytautmariann Attending Unavailable Nanette Barajas Attending Unavailable Everett Miner Attending Unavailable Everett Miner Attending Unavailable Nanette Barajas Attending Unavailable Everett Miner Admitting Unavailable Everett Miner Attending Unavailable Everett Miner Referring Unavailable Kaleb Mallory Attending Unavailable Kaleb Mallory Attending Unavailable Araceli ROME Attending Unavailable Araceli ROME Attending Unavailable Araceli ROME Attending Unavailable Everett Miner Attending Unavailable Everett Miner Attending Unavailable Everett Miner Attending Unavailable Everett Miner Attending Unavailable MD Scarlet Johnson Primary Care Provider [phone] MD Daniel Everett Attending Provider Eligio Soni Admitting UnavailEligio Patel Attending UnavailScarlet Valerio Primary Care Unavailable Daniel Everett Admitting Unavailable Daniel Everett Attending Unavailable Scarlet Johnson Primary Care Unavailable eTrry Franklin Attending Unavailable Scarlet Johnson Primary Care Unavailable Terry Franklin Admitting Unavailable Allergies Allergy Classification Reported Allergen(s) Allergy Type Date of Onset Reaction(s) Facility (20 sources) Cefuroxime; Translations: [CEFUROXIME] Drug Allergy 06-09-20 Unknown [facility] Repository (20 sources) celecoxib; Translations: [CELECOXIB] Drug Allergy 06-09-20 Unknown [facility] Repository (20 sources) Diflunisal; Translations: [DIFLUNISAL] Drug Allergy 06-09-20 Unknown [facility] Repository (20 sources) dulaglutide Drug Allergy 09-11-20 23 Unknown, g/i [facility] (20 sources) Ibuprofen Drug Allergy Unknown [facility] Other (20 sources) liraglutide; Translations: [LIRAGLUTIDE] Drug Allergy 11-25-19 23 stomach upset [facility] Repository (20 sources) metFORMIN; Translations: [METFORMIN] Drug Allergy 06-09-20 stomach upset [facility] Repository (20 sources) Naproxen; Translations: [NAPROXEN] Drug Allergy 06-09-20 Unknown [facility] Repository (20 sources) Sulindac; Translations: [Clinoril] Drug Allergy 07-10-20 15 Unknown [facility] Repository (1 source) Cefuroxime Drug Allergy 07-13-20 16 [facility] Repository (2 sources) celecoxib; Translations: [CeleBREX] Drug Allergy 07-10-20 15 [facility] Repository (2 sources) liraglutide; Translations: [Victoza] Drug Allergy [facility] Repository (1 source) metFORMIN Drug Allergy 06-15-20 17 [facility] Repository (2 sources) Naproxen; Translations: [Naprosyn] Drug Allergy 07-10-20 15 [facility] Repository (2 sources) NSAIDs; Translations: [NSAIDS (NON-STEROIDAL ANTI-INFLAMMATORY DRUG)] Drug allergy (disorder) 07-10-20 15 [facility] Repository (2 sources) Povidone-Iodine; Translations: [Dolobid] Drug Allergy 07-10-20 15 [facility] Repository (1 source) rofecoxib; Translations: [ROFECOXIB] Drug Allergy 06-09-20 [facility] Repository (3 sources) Sulindac; Translations: [SULINDAC] Drug Allergy 06-09-20 [facility] Repository (1 source) Cefuroxime; Translations: [Cefuroxime Axetil] Drug Allergy [facility] Repository (3 sources) Cephalosporins (Antibiotic); Translations: [cephalosporins] Propensity to adverse reactions (disorder) 05-29-20 Unknown Reaction [facility] Repository (1 source) dulaglutide; Translations: [Trulicity] Drug Allergy [facility] Repository (1 source) Niacin; Translations: [niacin] Drug Allergy [facility] Repository (1 source) NSAIDs; Translations: [NSAIDs] Propensity to adverse reactions (disorder) [facility] Repository (1 source) rofecoxib; Translations: [Vioxx] Drug Allergy [facility] Repository (2 sources) Ibuprofen; Translations: [ibuprofen] Drug Allergy 09-11-20 [facility] (1 source) Cefuroxime Drug Allergy 09-11-20 [facility] Repository (1 source) celecoxib Drug Allergy 09-11-20 [facility] Repository (1 source) Diflunisal Drug Allergy 09-11-20 [facility] Repository (1 source) dulaglutide Drug Allergy 09-11-20 [facility] Repository (1 source) liraglutide Drug Allergy 09-11-20 [facility] Repository (1 source) metFORMIN Drug Allergy 09-11-20 [facility] Repository (1 source) Naproxen Drug Allergy 09-11-20 [facility] Repository Medications Current Medications Medication Drug Class(es) [...] / HYDROcodone bitartrate 5 mg oral tablet (2 sources) Opioid Agonist Start: 06-07-2018 take 1 tablet [...] day Active canagliflozin 100 mg oral tablet (2 sources) Sodium-Glucose Cotransporter 2 Inhibitor Start: 05-29-2018 Canagliflozin (Invokana) 100 mg tablet Active TABLET May 28, 2018 11:00pm ciprofloxacin 500 mg oral tablet (2 sources) Quinolone Antimicrobial Start: 06-07-2018 take 1 tablet [...] Nitro Sublingual 0.4 Sublingual As Directed Active [place] 8-Ene-Bhh-Fish Oil (Fish Oil) 1,000 mg (120 mg-180 mg) Capsule (2 sources) Start: 05-29-20 18 [place] 0-Hyn-Qib-Fish Oil (Fish Oil) 1,000 mg (120 mg-180 mg) Capsule Active May 28, 2018 11:00pm oxybutynin chloride 5 mg oral tablet (2 sources) Cholinergic Muscarinic Antagonist Start: 06-07-20 18 take 5 mg by mouth twice daily Oxybutynin Chloride Active 5 MG PO Twice daily 60 June 06, 2018 11:00pm pioglitazone 30 mg oral tablet (20 sources) Peroxisome Proliferator Receptor alpha Agonist, Peroxisome Proliferator Receptor gamma Agonist, Thiazolidinedione take 1 tablet by mouth every twenty-four hours Pioglitazone HCl 30 MG 1 tablet Orally Once a day Active take 2 tablets by mo [facility] every twenty-four hours Pioglitazone HCl 15 MG 2 tablets Orally Once a day for 90 days Active take 1 tablet by jatin th every twenty-four hours Pioglitazone HCl 15 MG [...] tablet by jatin th every twenty-four hours Januvia 100 MG 1 tablet Orally Once a day Active take 0.5 tablet by mouth once da frances Januvia 100 MG 1/2 tablet Orally Once a day Active sodium bicarb 650 mg (20 sources) take 2 tablets by mouth three times daily sodium bicarb 650 mg 2 tablets orally tid Active sodium bicarbonate 650 mg oral tablet (2 sources) Start: 8 Sodium Bicarbonate Active TABLET May 28, 2018 11:00pm tiZANidine 4 mg oral capsule (20 sources) Central alpha-2 Adrenergic Agonist take 1 tablet by mouth once daily tiZANidine HCl 4 MG 1 tab Orally daily Active tiZANidine HCl A ctive traMADol hydrochloride 50 mg oral tablet (2 sources) Opioid Agonist Start: 05-29-2018 Tramadol Activ e [...] Orally once a day Active FreeStyle Baylee Wabasso - (7 sources) FreeStyle Baylee Wabasso - use with baylee sensor SQ daily [...] Coronary arteriosclerosis; Translations: [Atherosclerotic heart disease of [place] coronary artery without angina pectoris] Onset: 11-25-2022 [...] deficiency, unspecified] Chronic Other aftercare (1 source) long-term (current) use of aspirin; Translations: [FCI CURRENT USE OF ASPIRIN] Onset: 02-20-2023 Episodic Other aftercare (1 source) Other [facility] (current) drug therapy; Translations: [OTH [facility] CURRENT DRUG THERAPY] Onset: 02-20-2023 Episodic Other aftercare (6 sources) Long-term current use of insulin; Translations: [long-term (current) use of insulin] Episodic Other aftercare (1 source) long-term (current) use of insulin Episodic Other connective [...] Value Interpretation Reference Range [facility] - MIS [id number]#1.0 0TIFF Normal [facility] RAD - Ultrasound Reporton RAD - Ultrasound Report [id number]#1.0 0TIFF Normal [facility] RAD - Ultrasound Report [id number]#1.0 0TIFF Normal [facility] RAD - MISCon 10-30-2023 RAD - MISC [id number]#1.00 TIFF [facility] RAD - MRI Reporton RAD - MRI Report [id number]#1.00 TIFF [facility] Screenson 10-20-2023 Screens [id number]#1. 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 Your Care Team Attending Physician - Araceli ROME MD Primary Care Physician - Everett Miner MD This Is Your Medications List sodium bicarbonate [...] Appointments 2023 1:00 PM EDT With: Kristofer SCHUSTER, Everett Bee Where: [facility] Interpretation Code [address] [place] [address]- \.br \ Monday 10:30 AM EST \.br\ With: Araceli ROME MD\.br\ Where: [facility] Patient Educationon 10-18-19 Patient Education Nephrology Dietary [...] ? 8 oz (237 mL) of milk, znnemei-jrvrneusubqe-w airy milk, and calcium-fortifiedfruit juice. Calcium-fortified means that [...] Spinach (cooked), rhubarb, beets, sweet potatoes, and [place] Zealander chard. ? Peanuts. ? Potato chips, macedonian fries, and baked potatoes with skin on. ? Nuts and nut products. ? Chocolate. ? If you regularly take a diuretic medicine, make sure to eat at least 1 or 2 servings of fruits or vegetables that are high in potassium each day. These include: ? Avocado. ? Banana. ? Coamo, prune, carrot, or tomato juice. ? Baked [...] fish oil, or vitamin B6. ? Take jawt-qlj-ncqisnw and prescription medicines only as told by your health care provider. These include supplements. What foods sh (more content not included)... [facility] Reminderson 10-18-2023 Reminders - From: Roya Álvarez To: PREM Rome; Sent: 10/18/2023 15:39:39 EST Show up: 08/18/2024 15:39:00 EST Subject: Renal US Due Date/Time: 09/17/2024 15:39:00 EST Pt needs scheduled for TERRIE prior to 1 year appointment. Being done at [facility]. order placed. Normal [facility] Urology Office/Clinic Noteon 10-18-2023 Urology Office/Clinic [...] and history for this patient from Dr. Rome. I have reviewed and verified the staff [...] with voice recognition artificial intelligence software, specifically Capsearch, Art.com and or KidNimble. Substitutions may have occurred due to the [...] the plan Follow-up With When Contact Information Araceli ROME MD, URL [address] [address]- Additional Instructions: 1 year w/ renal US Patient Education Dietary Guidelines to Help Prevent Kidney Stones I, Roya Álvarez, personally scribed for Dr. Rome on 10/18/2023 15:40:43. . Documentation recorded by the scribRoya bledsoe, accurately reflects the services(s) I performed and decisions made by me. Authenticated by Dr. Rome on 10/18/2023 15:42:47. Problem List/Past Medical History [...] benign pr (more content not included)... Normal [facility] Comment on above: Result Comment: Elec tronically Signed By: Araceli ROME MD\.br\Date and Time Signed: 10/18/23 15:45 EST\.br\Electronically [...] recent A1c level, as measured by his public policy professor, was 6.9%. Review of Systems PHQ Score [...] with voice recognition artificial intelligence software, specifically Capsearch, Art.com and or KidNimble. Substitutions may have occurred due to the inherent limitations of voice recognition and artificial intelligence software. ATTESTATION: Documentation services were performed after patient or guardian consented to allow [place] to record this visit. HEMANTH event specialist and provider reviewed before signing. HEMANTH: Miguevie Rigor Follow-up No qualifying data available We [...] under fluo (more content not included)... Normal [facility] Comment on above: Result Comment: Elec [...] Appointments Monday 2:45 PM EST With: Araceli ROME MD Where: [facility] Invalid Interpretation Code [address] [place] [address]- \.br \ Monday 9:30 AM EDT \.br\ With:\.br\ Where: [facility] Family Medicine [facility] Consultation Noteon 09-18-20 23 Consultation Note [id number]#1.0 0TIFF Normal [facility] A1C with Estimated Average G [facility] 09-11-2023 HbA1c (Bld) [Mass fraction] 6.900 % High 4.3-5.6 % P21 [facility] TopLog Other HbA1c (Bld) [Mass fraction] 151 mg/dL 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 Performed By: #### A [address] [facility] #### [address] HbA1c (Bld) [Mass fraction] 6.9 % High 4.3-5.6 [facility] Comment on above: Order Comment: Reaso n for Exam Type 2 diabetes mellitus with diabetic chronic kidney diseas Result Comment: Incr eased risk for diabetes: 5.7 - 6.4 diabetes: >6.4 glycemic control for adults with diabetes: <7.0 Performed By: #### A [address] [facility] #### [place] [id number] [facility] Glucose - FINGER STICKon Glucose [Mass/Vol] 138 mg/dL [employer] Other Glucose mean value [Mass/vol ume] in Blood Estimated from glycated hemoglobinOrdered By: Aldo Middleton on 09-11-2023 Average glucose Estimated from glycated hemoglobin (Bld) [Mass/Vol] 151 mg/dL [facility] Hemoglobin A1c percentageOrd ered By: Aldo Middleton on 09-11-2023 HbA1c (Bld) [Mass fraction] 6.9 % 4.3-5.6 [facility] Comment on above: Increased risk for d iabetes: 5.7 - 6.4diabetes: >6.4glycemic control for adults with diabetes: <7.0 Consultation Noteon 09-06-20 Consultation Note [id number]#1.00 TIFF Normal [facility] Consultation Noteon 08-28-20 Consultation Note [id number]#1.00 TIFF Normal [facility] US UNI ankle/arm indiceson 1 10-24-2022 US UNI ankle/arm indices [facility] Main [place] [address] [place] [address] Ultrasound Report Signed Patient: Dong Whitmore MR#: [id number] : 1950 Acct:[id number] Age/Sex: 73 / M ADM Date: 08/24/23 Loc: [facility] Room: Type: [facility] Attending Dr: Eligio Soni MD Ordering Provider: [...] Eligio Soni MD08/24/2023 3:31 PM Dictation Location: [place] [address] Tech: Britney Arrietaaddison Transcribed By: CIRO 08/24/231530 Dictated By: Eligio Soni MD 08/24/231529 Signed By: 08/24/23 153 Normal [facility] US venous duplex LE RTon US venous duplex LE RT [facility] [place] [address] Ultrasound Report Signed Patient: Dong Whitmore MR#: [id number] : 1950 Acct:[id number] Age/Sex: 73 / M ADM Date: 08/24/23 Loc: [facility] Room: Type: [facility] Attending Dr: Eligio Soni MD Ordering Provider: [...] Eligio Soni MD08/24/2023 3:31 PM Dictation Location: [place] [address] Tech: Coby Arthur Transcribed By: CIRO 08/24/231530 Dictated By: Eligio Soni MD 08/24/231530 Signed By: 08/24/231530 [facility] Ambulatory Visit Summaryon 1 10-21-2022 Ambulatory [...] EST With: Kristofer SCHUSTER, Everett Bee Where: [facility] Invalid Interpretation Code [address] [facility], [address] [place] [address]- \.br \ Monday 9:30 AM EDT \.br\ With:\.br\ Where: [facility] Family Medicine Office/Clini c Noteon 08-21-2023 Family [...] kidney d (more content not included)... Normal [facility] Comment on above: Result Comment: Elec [...] oz glass (more content not included)... Normal [facility] Pre-Visit Planningon 023 Pre-Visit Planning - From: Ceci Yu To: Everett Miner MD; Sent: 08/17/2023 10:44:28 EST Subject: Pre-Visit Planning Due Date/Time: 08/17/2023 10:44:00 EST Caller Name: DONG WHITMORE; Caller Number: H , B [phone] Or Dr. Miner. During a pre-visit planning chart [...] feel free to contact me at extension [phone]. Thank you! Ceci Yu LPN Invalid Interpretation Code 272 [facility] Consultation Noteon 08-10-20 23 Consultation Note [id number]#1.0 0TIFF Normal [facility] Family Medicine Office/Clini c Noteon 07-26-2023 Family Medicine Office/Clinic Note HPI Staff Dong is a 72 year old male presenting for 3 month follow up dm, htn, anxiety Do you have any of the following symptoms? Foot Exam: UTD by endo Eye Exam: UTD few weeks ago Last [...] Present Illness - Here for follow up. Endo saw the patient and A1c is now [...] continue to monitor along. Ordered: A1c POC 42674 Body Mass Index (BMI) documented 3008F Current [...] disease) - As above Ordered: A1c POC 86625 Body Mass Index (BMI) documented 3008F Current [...] stage 3a) - Stable Ordered: A1c POC 41568 Body Mass Index (BMI) documented 3008F Current [...] - No new issues Ordered: A1c POC 79879 Body Mass Index (BMI) documented 3008F Current [...] - BMI education given Ordered: A1c POC 33726 Body Mass Index (BMI) documented 3008F Current [...] last ye (more content not included)... Normal [facility] Comment on above: Result Comment: Elec [...] numbers. This can be done either in [place] ([place] or metric measurements. Note that charts and online BMI calculators are available to help you find your BMI quickly and easily without having to do these calculations yourself. To calculate your BMI in [place] ([place] measurements: 1. Measure your weight in [...] for Disease Control and Prevention: www.cdc.gov ? [place] Heart Association: www.heart.org ? National Heart, Lung, and Blood [place]: www.nhlbi.nih.gov Summary ? Body mass index (BMI) is a number that is calculated from a person's weight and height. ? BMI may help estimate how much of a person's weight is composed of fat. BMI can help identify those who may be at higher risk for certain medical problems. ? BMI can be measured using [place] measurements or metric measurements. ? BMI charts are used to identify whether you are underweight, normal weight, overweight, or obese. This information is not intended to replace advice given to you by your health care provider. Make sure you discuss any questions you have with your health care provider. Document Revised: 06/17/2020 Document Reviewed: 04/24/2020 [employer] Patient Education ? 2022 [employer]. [facility] Physician Referralon 023 Physician Referral [id number] 03 [id number]#1. 00TIFF [facility] Pre-Visit Planningon 023 Pre-Visit Planning - From: Ceci Yu To: Kristofer SCHUSTER, Everett Bee; Sent: 07/24/2023 15:20:33 EDT Subject: Pre-Visit Planning Due Date/Time: 07/24/2023 15:20:00 EDT Caller Name: DONG WHITMORE; Caller Number: H , B [phone] Or Dr. Miner. During a pre-visit planning chart [...] is supported by the following clinical indicators: ___ -Other (please specify): In responding to this request, please exercise your independent professional judgment. The fact that a question is asked does not imply that any particular answer is desired or expected. If you have any questions, please feel free to contact me at extension [phone]. Thank you! Ceci Yu LPN From: Kristofer SCHUSTER, Everett Bee To: Ceci Yu; Sent: 07/24/2023 16:58:10 EDT Subject: RE: Pre-Visit Planning Caller Name: DONG WHITMORE; Caller Number: H , B [phone] OK to add the first one. Thank you [address] Consultation Noteon 07-19-20 Consultation Note [id number]#1.0 0TIFF [facility] Operative Reporton Operative Report [id number]#1.0 0TIFF [facility] Consultation Noteon 07-03-20 Consultation Note [id number]#1.00 CD:127 [facility] Nursing Note - Woundon 06-28 Nursing Note - Wound [id number]#2. 00CD:127 [facility] [facility] Physician Referralon 023 Physician Referral [id number]#1.00 CD:127 [facility] Consent for Procedure/Surger yon 06-26-2023 Consent for Procedure/Surgery [id number] 0CD:127 [facility] Consent for Treatmenton 06-09 Consent for Treatment [id number]#1.0 0CD:127 [facility] Multi-Wound Charton 06-26-20 Multi-Wound Chart [id number]#1. 00CD:127 [facility] Nursing Assessment - Woundon 06-26-2023 Nursing Assessment - Wound [id number]#1. 00CD:127 [facility] Physician Orderon 06-26-2023 Physician Order [id number]#1. 00CD:127 [facility] Progress Note - Woundon 06-09 Progress Note - Wound [id number]#1. 00CD:127 [facility] Office Visiton 06-21-2023 Follow-up visit [id number] Dong Whitmore 1950 [facility] Provider Department [place] 06/21/2023 [facility]8ELAINE BRENNAN [facility] [place] [facility] Family History Problem Relation Age of Onset Coronary artery disease Other Diabetes Other Family Status - Relation Status Age at Other Level of Service:80310 DE OFFICE/OUTPATIENT ESTABLISHED MOD MDM 30-39 MIN [facility] Operative Reporton 3 Operative Report [id number]#1.00 CD:127 [facility] Operative Reporton 3 Operative Report [id number]#1.0 0CD:127 [facility] Consultation Noteon 05-27-20 Consultation Note [id number]#1.0 0CD:127 [facility] Nursing Assessment - Woundon 05-17-2023 Nursing Assessment - Wound [id number]#1. 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 Patient Wishes to Receive Further Information on Advance Directives : No Organ Donation Consent : Yes Conrad Yoon/2/2023 9:19 EDT Advance Directive : Yes Conrad Yoon/2/2023 9:11 EDT Procedures / Surgeries FT - Procedure History (As Of: 05/10/2023 10:31:13 EDT) Procedure Dt/Tm: 12/02/2015 ; Anesthesia Minutes: 0 ; Procedure Name: ulstrasound ; Procedure Minutes: 0 ; Last Reviewed Dt/Tm: 05/10/2023 09:27:20 EDT Procedure Dt/Tm: 12/02/2015 ; Provider: Araceli Rome MD; Anesthesia Minutes: 0 ; Procedure Name: Cystoscopy, Right RGP, Right Ureteroscopy with stone basket extraction ; Procedure Minutes: 0 ; Last Reviewed Dt/Tm: 05/10/2023 09:27:20 EDT Procedure Dt/Tm: 06/23/2016 ; Provider: Araceli Rome MD; Anesthesia Minutes: 0 ; Procedure Name: [...] Last Reviewed Dt/Tm: 05/10/2023 09:27:20 EDT Location: [facility] ; Anesthesia Minutes: 0 ; Procedure [...] Procedure Minutes: 0 ; Comments: 06/21/2019 14:29 EDT - Marilynn Zhang MA x4 ; Last Reviewed Dt/Tm: 05/10/2023 09:27:20 EDT Procedure Dt/Tm: 11/05/2007 ; Anesthesia Minutes: 0 ; Procedure Name: Cystoscopy ; Procedure Minutes: 0 ; Last Reviewed Dt/Tm: 05/10/2023 09:27:20 EDT Pr (more content not included)... [facility] Comment on above: Result Comment: Elec tronically Signed By: Everett Miner MD.br\Date and Time Signed: 05/16/23 13:31 EDT\.br\Electronically Co-Signed By: Conrad Yoon.br\Date and Time Co-Signed: 05/10/23 11:00 EDT Auth for Release of Medical Recordson 05-15-2023 Auth for Release of Medical Records [id number]#1.0 0CD:127 [facility] Consent for Procedure/Surger yon 05-15-2023 Consent for Procedure/Surgery [id number]#1.0 0CD:127 [facility] Consent for Treatmenton Consent for Treatment [id number]#1.0 0CD:127 [facility] Consent to Photographon Consent to Photograph [id number] 0CD:127 [facility] Correspondence - Woundon Correspondence - Wound [id number]#1.0 0CD:127 [facility] Correspondence - Wound [id number]#1.0 0CD:127 [facility] Nursing Assessment - Woundon 05-15-2023 Nursing Assessment - Wound [id number] 0CD:127 [facility] Nursing Note - Woundon 05-15 Nursing Note - Wound [id number]#1. 00CD:127 [facility] Physician Orderon 05-15-2023 Physician Order [id number]#1. 00CD:127 [facility] Progress Note - Woundon Progress Note - Wound [id number]#1. 00CD:127 [facility] Ambulatory Visit Summaryon 0 05-10-2023 Ambulatory Visit [...] Follow-Up Appointments Monday 8:45 AM EDT With: Kaleb Mallory MD Where: [facility] Monday 2:20 PM EDT With: Everett Miner MD Where: [facility] Invalid Interpretation Code [address] [place] [address]- \.br \ Monday 9:30 AM EDT \.br\ With:\.br\ Where: [facility] CMPon 05-10-2023 Albumin [Mass/Vol] 4.0 g/dL Normal 3.3-5.0 [facility] Comment on above: Performed By: #### 2 758774, 4109210, [id number] ####[address] [address] Albumin/Globulin (S) [Mass conc ratio] 1.2 Normal 1.1-2.2 [facility] Comment on above: Performed By: #### 2 320136, 6445342, 40182430 ####[address] [address] ALP [Catalytic activity/Vol] 66 Int._Unit/L Normal 21-98 [facility] Comment on above: Performed By: #### 2 650509, 0887341, 20281610 ####[address] [address] ALT No additional P-5'-P [Catalytic activity/Vol] 25 Int._Unit/L Normal 6-46 [facility] Comment on above: Performed By: #### 2 567491, 1125460, 57882865 ####[address] [address] Anion gap [Moles/Vol] 11 mmol/L Normal 6-16 [facility] Comment on above: Performed By: #### 2 749920, 7683548, 65279852 ####[address] [place] [address] AST [Catalytic activity/Vol] 26 Int._Unit/L Normal 5-43 [facility] Comment on above: Performed By: #### 2 827517, 3629421, 80355235 ####[facility] [address] [place] [address] Bilirubin [Mass/Vol] 0.3 mg/dL Normal 0.0-1.1 [facility] Comment on above: Performed By: #### 2 515220, 9553955, 27527297 ####[facility] [address] [place] [address] Calcium [Mass/Vol] 9.2 mg/dL Normal 8.9-11.1 [facility] Comment on above: Performed By: #### 2 770010, 1566373, 51290382 ####[facility] [address] [place] [address] Chloride [Moles/Vol] 107 mmol/L Normal 101-111 [facility] Comment on above: Performed By: #### 2 282339, 5817317, 13186836 ####[facility] [address] [place] [address] CO2 [Moles/Vol] 23 mmol/L Normal 21-31 [facility] Comment on above: Performed By: #### 2 181266, 4479017, 46955952 ####[facility] [address] [place] [address] Creatinine [Mass/Vol] 1.3 mg/dL Normal 0.5-1.3 [facility] Comment on above: Performed By: #### 2 089770, 5636885, 03167418 ####[facility] [address] [place] [address] Globulin (S) [Mass/Vol] 3.2 g/dL Normal 1.4-4.0 [facility] Comment on above: Performed By: #### 2 255424, 8695858, 30363503 ####[facility] [address] [place] [address] Glucose [Mass/Vol] 137 mg/dL Normal 55-199 [facility] Comment on above: Result Comment: If t his glucose result represents a fasting glucose, interpretation should refer to the following reference range: 55-99 mg/dL Performed By: #### 2 487643, 2558582, 24705550 ####[facility] [address] [place] [address] Potassium [Moles/Vol] 4.0 mmol/L Normal 3.5-5.3 [facility] Comment on above: Performed By: #### 2 192760, 1279612, 12256036 ####[facility] [address] [place] [address] Protein [Mass/Vol] 7.2 g/dL Normal 6.0-7.8 [facility] Comment on above: Performed By: #### 2 315650, 3321102, 31630808 ####[facility] [address] [place] [address] Sodium [Moles/Vol] 137 mmol/L Normal 135-145 [facility] Comment on above: Performed By: #### 2 565876, 3988881, 07519132 ####[facility] [address] [place] [address] Urea nitrogen [Mass/Vol] 32 mg/dL High 5-21 [facility] Comment on above: Performed By: #### 2 979239, 7997824, 60279889 ####[facility] [address] [place] [address] Urea nitrogen/Creatinine [Mass ratio] 25 No Units High 10-20 [facility] Comment on above: Performed By: #### 2 803913, 3661363, 35138611 ####[facility] [address] [place] [address] Lipid Panelon 05-10-2023 Cholesterol [Mass/Vol] 129 mg/dL Normal 120-200 [facility] Comment on above: Performed By: #### 2 141122, 3069806, 61891898 ####[facility] [address] [place] [address] Cholesterol in HDL [Mass/Vol] 34 mg/dL Invalid Interpretation Code [facility] Comment on above: Result Comment: HDL > or equal to 60 mg/dL: Low cardiovascular risk HDL < 40 mg/dL : High cardiovascular risk Performed By: #### 2 896523, 9358278, 98839787 ####[facility] [address] [place] [address] Cholesterol in LDL [Mass/Vol] 63 mg/dL Normal <=129 [facility] Comment on above: Performed By: #### 2 069893, 7095465, 82473783 ####[facility] [address] [place] [address] Cholesterol in VLDL [Mass/Vol] 33 mg/dL Normal 7-40 [facility] Comment on above: Performed By: #### 2 890324, 7767172, 88115316 ####[facility] [address] [place] [address] Triglyceride [Mass/Vol] 164 mg/dL High <=149 [facility] Comment on above: Performed By: #### 2 845817, 9895868, 62467495 ####[facility] [address] [place] [address] Patient Educationon 05-10-20 23 Patient Education Caregiving [...] night-lights. ? Place frequently used items in zdcx-iu-vtwoj places. Lower the shelves around your home [...] the way. ? Do not use floor marshallese or wax that makes floors slippery. If [...] include working with a physical therapist or resident athletic trainer to improve your strength, balance, and endurance. Where to find more information ? Centers for Disease Control and Prevention, [place]: www.cdc.gov ? National [place] on Aging: www.keena.nih.gov Contact a health care [...] health ca (more content not included)... Normal [facility] Screenson 05-10-2023 Screens [id number]#1.0 0CD:127 Normal [facility] U Microalbon 05-10-2023 Albumin DL <= 20 mg/L (U) [Mass/Vol] 57.4 microgram/mL High 0.0-19.0 [facility] Comment on above: Performed By: #### 1 [id number], 70674687 #### [facility] [address] [place] [address] U Protein/Creat Ratioon Albumin Elph (U) [Mass fraction] 20.8 mg/dL Invalid Interpretation Code [facility] Comment on above: Result Comment: The reference range and other method performance specifications have not been established for this test; results should be integrated into the clinical context for interpretation. Performed By: #### 1 [id number], 18584963 ####[address] [place] [address] Creatinine (U) [Mass/Vol] 130.1 mg/dL Invalid Interpretation Code [facility] Comment on above: Result Comment: The reference range and other method performance specifications have not been established for this test; results should be integrated into the clinical context for interpretation. Performed By: #### 1 [id number], 32982020 ####[address] [place] [address] U Prot/Creat Ratio 159.90 mg/gm Cr Normal .00-200.00 [facility] Comment on above: Performed By: #### 1 [id number], 59227982 ####[address] [place] [address] eGFRon 05-10-2023 GFR/1.73 sq M.predicted among non-blacks MDRD (S/P/Bld) [Vol rate/Area] 58 mL/min/1.73 m2 Low >=59 [facility] Comment on above: Order Comment: Order added by Discern Expert. Result Comment: Extension Course Coordinator hai kidney disease could be indicated at eGFR's of less than 60 mL/min/1.73m2. Kidney failure is indicated at less than 15 mL/min/1.73m2. Performed By: #### 2 727701, 5699037, 95576930 ####[facility] [address] [place] [address] Family Medicine Office/Clini c Noteon 05-01-2023 Family [...] few polyps PSA: due covid: UTD recent [id number] recent isabela-9 Acute: Current issues/complaints: discuss issues [...] sit down. He has been to Dr. Simpson, his regular air purifier servicer. He thinks not by taking the toe [...] most of his life. He sees a construction project assistant. He last saw them a couple of [...] years since he has carried them. His public policy professor ordered his lab work. He is supposed [...] has been a week or so. Dr. Simpson checked him to see if he had [...] his blood sugars under control with his public policy professor. 5. Chronic bilateral low back pain without sciatica (M54. (more content not included)... Normal [facility] Comment on above: Result Comment: Elec tronically Signed By: Everett Miner MD\.br\Date and Time Signed: 05/01/23 11:27 EDT\.br\Electronically Co-Signed By: Dahiana Berg\.br\Date and Time Co-Signed: 04/27/23 17:48 EDT Physician Referralon 023 Physician Referral [id number]#1. 00CD:127 [facility] Physician Referral [id number] 05 [id number]#1. 00CD:127 [facility] Ambulatory Visit Summaryon 0 04-27-2023 Ambulatory Visit [...] Appointments Monday 9:20 AM EDT With: Where: [facility] Invalid Interpretation Code [address] [place] [address]- \.br \ Monday 2:20 PM EDT \.br\ With: Everett Miner MD\.br\ Where: [facility] Ambulatory Visit Summaryon 0 03-14-2023 Ambulatory Visit [...] Appointments Monday 9:20 AM EDT With: Where: [facility] Invalid Interpretation Code [address] [place] [address]- \.br \ Monday 8:15 AM EST \.br\ With: LATRICIA SCHUSTER, Araceli Treadwell\.br\ Where: [facility] Office/Clini c Noteon 03-14-2023 Family Medicine Office/Clinic Note Chief Complaint pt here to establish care HPI Staff establish care Establish Care: History: HTN, Diabetes Last provider: Dr Johnson Any recent labs: 11/08/2022 weeks ago [place] Specialist: Bottom Presser Melissa Lopez in [place], air purifier servicer Health Maintenance UTD: Colonoscopy: 1.5- 2 years ago few polyps other villarreal normal PSA: 04/07/22 Acute: Current issues/complaints: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 Having problems sleeping hurts the worst at night at time ca be 10/10. Telecom Specialist has told him there isn't anything they [...] help. encouraged him to discuss with Dr. Simpson to let him know the pain is [...] year 4. Hypertension (I10: Essential (primary) hypertension) construction project assistant just increased his meds 5. 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 Hyperlipidemia (E78.5: Hyperlipidemia, [...] tab(s), Refills(s) 3, Pharmacy: 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 Normal [facility] Comment on above: Result Comment: Elec tronically Signed By: Nanette Do\.br\Date and Time Signed: 03/14/23 11:03 EDT 36on 03-08-2023 36 Please let him know his kidney function is stable. Continue current medications. Follow-up as planned in 3 months. Thank you Normal [facility] A1C HEMOGLOBINon 02-14-2023 HbA1c (Bld) [Mass fraction] 7.6 % [employer] Other Glucose - FINGER STICKon Glucose [Mass/Vol] 215 mg/dL [employer] Other HbA1c (Bld) [Mass fraction]o n 02-14-2023 A1C HEMOGLOBIN [employer] Other 36on 02-13-2023 36 BP higher than goal of <130/90. Recommend increasing his losartan to 75mg daily (1.5 tablets of his current Rx) with follow-up BMP in 2 weeks. Thanks [facility] 36on 01-23-2023 36 . [facility] Office Visiton 01-23-2023 Follow-up visit [id number] Dong Whitmore 1950 M Date Provider Department Center 01/23/2023 MARY GRIFFIN Family History Problem Relation Age of Onset Coronary artery disease Other Diabetes Other Family Status - Relation Status Age at Other Level of Service:50139 DE OFFICE/OUTPATIENT ESTABLISHED MOD MDM 30-39 MIN Reason for Visit and Comments: Cardiac Stress Test [489] [facility] Telephoneon 01-23-2023 Telephone [id number] Dong Whitmore 1950 Date Provider Department Center 01/23/2023 PAPITO BROWN Family History Problem Relation Age of Onset Coronary artery disease Other Diabetes Other Family Status - Relation Status Age at Other [facility] 36on 01-06-2023 36 Patient stopped by t he office during lunch hour and spoke with Yarelis from the [facility] cardiac rehab. He wanted stress and [...] if he needs RX for BP cuff. [facility] Telephoneon 01-06-2023 Telephone [id number] Carlos Whitmorewei Nur 1950 Date Provider Department Center 01/06/2023 MARY GRIFFIN Family History Problem Relation Age of Onset Coronary artery disease Other Diabetes Other Family Status - Relation Status Age at Other [facility] ECHOCARDIO M/2D COMPLETEon 0 3-24-2023 ECHOCARDIO M/2D COMPLETE Patient: DONG WHITMORE Exam Date: 12/30/2022 : 1950 Gender:M Ordering : [facility] Admission #: [id number] Family : Order #: [id number] CLICK HERE TO VIEW EXAM ECHOCARDIOGRAM REPORT [...] Thibodeaux M.D. on 12/30/2022 at 18:49 Normal [facility] STRESS/REST MULTIon 12-29 [place] STRESS/REST MULTI Patient: DONG WHITMORE Exam Date: 12/29/2022 : 1950 Gender:M Ordering : [facility] Admission #: [id number] Family : Order #: [id number] CLICK HERE TO VIEW EXAM RADIOLOGY REPORT [...] the study was pending per attending physician [facility] . For more details please see separate [...] motion and ejection fraction. Dictated by: Brittny Agudelo M.D. on 12/30/2022 at 09:38 Approved by: Brittny Agudelo M.D. on 12/30/2022 at 09:41 Normal [facility] US MAMI DOP LEG RTon 12-09-19 US MAMI DOP LEG RT EXAMINATION: US MAMI DOP LEG RT HISTORY: Deep venous thrombosis of lower extremity (disorder) COMPARISON: No relevant comparison available. TECHNIQUE: Grayscale, color and Doppler ultrasound FINDINGS: Region: Right leg Thrombus: None Flow: Normal Augmentation: Normal Compressibility: Normal Other: Subcutaneous edema, moderate IMPRESSION: No deep or superficial vein thrombus identified in the right leg *Exam performed in accordance with [facility] practice guidelines- Peripheral venous ultrasound, January 02, 2010. Electronically authenticated by: MORGAN BLUE Date: 2022-12-08 16:15 Normal [facility] Office Visiton 11-25-2022 Follow-up visit [id number] Dong Whitmore 1950 Provider Department Center 11/25/2022 MARY GRIFFIN [facility] Family History Problem Relation Age of Onset Coronary artery disease Other Diabetes Other Family Status - Relation Status Age at Other Level of Service:14569 DE OFFICE/OUTPATIENT ESTABLISHED HIGH MDM 40-54 MIN Reason for Visit and Comments: Coronary Artery Disease [187] Hypertension [035314] Hyperlipidemia [182] Normal [facility] TSHon 11-25-2022 TSH 2.370 uIU/mL Normal 0.358-3.740 [facility] Comment on above: Performed By: #### T SH #### [facility] [address] [place] [address] Dr. Eli Jarvis BNPon 11-08-2022 Natriuretic peptide B (Bld) [Mass/Vol] 122.0 pg/mL Normal <=900.0 [facility] Comment on above: Performed By: #### C MP, BNP #### [facility] [address] [address] [address] Eli Jarvis CBC AUTO DIFFon 11-08-2022 BASO # 0.1 103/ul Normal 0.0-0.1 [facility] Comment on above: Performed By: #### C BC ####[facility] [address] [address]Dr. Eli Jarvis Basophils/100 WBC (Bld) 0.7 % Normal 0.2-2.0 [facility] Comment on above: Performed By: #### C BC ####[facility] [address] [place], [place] [address]Dr. Eli Jarvis EO # 0.2 103/ul Normal 0.0-0.7 [facility] Comment on above: Performed By: #### C BC ####[facility] [address] [place], [place] [address]Dr. Eli Jarvis Eosinophils/100 WBC (Bld) 3.5 % Normal 0.9-7.0 [facility] Comment on above: Performed By: #### C BC ####[facility] [address] [place], [place] [address]Dr. Eli Jarvis Erythrocyte distribution width (RBC) [Ratio] 13.8 % Normal 11.0-15.0 [facility] Comment on above: Performed By: #### C BC ####[facility] [address] [place], [place] [address]Dr. Eli Jarvis Hematocrit (Bld) [Volume fraction] 42.0 % Normal 42.0-54.0 [facility] Comment on above: Performed By: #### C BC ####[facility] [address] [place], [place] [address]Dr. Eli Jarvis Hemoglobin (Bld) [Mass/Vol] 13.8 g/dL Critically low 14.0-18.0 [facility] Comment on above: Performed By: #### C BC ####[facility] [address] [place], [place] [address]Dr. Eli Jarvis IG # 0.03 10e3/ul Normal 0.00-0.03 [facility] Comment on above: Performed By: #### C BC ####[facility] [address] [address]Dr. Eli Jarvis IG % 0.4 % Normal 0.0-0.5 [facility] Comment on above: Performed By: #### C BC ####[facility] [address] [address]DrSuzie Jarvis LYMPH # 1.3 103/ul Normal 1.2-3.8 [facility] Comment on above: Performed By: #### C BC ####[facility] [address] [address]DrSuzie Jarvis Lymphocytes/100 WBC (Bld) 18.8 % Critically low 20.5-60.0 [facility] Comment on above: Performed By: #### C BC ####[facility] [address] [place], [place] [address]DrSuzie Jarvis MANUAL DIFF REQ NO Normal The [facility] Comment on above: Performed By: #### C BC ####[facility] [address] [place] [address]DrSuzie Jarvis MCH (RBC) [Entitic mass] 27.8 pg Normal 25.9-34.0 [facility] Comment on above: Performed By: #### C BC ####[facility] [address]uw[address]vzq[address] [place] [address]DrSuzie Jarvis MCHC (RBC) [Mass/Vol] 32.9 g/dL Normal 29.9-35.2 [facility] Comment on above: Performed By: #### C BC ####[facility] [address]bpbanacrn[address] [place] [address]DrSuzie Jarvis MCV (RBC) [Entitic vol] 84.7 fL Normal 80.0-94.0 [facility] Comment on above: Performed By: #### C BC ####[facility] [address] [place], [place] [address]DrSuzie Jarvis MONO # 0.6 103/ul Normal 0.3-0.8 [facility] Comment on above: Performed By: #### C BC ####[facility] [address] [place] [address]Dr. Eli Jarvis Monocytes/100 WBC (Bld) 8.5 % Normal 1.7-12.0 [facility] Comment on above: Performed By: #### C BC ####[facility] [address]tol[address] [place] [address]Dr. Eli Jarvis NEUT # 4.7 103/ul Normal 1.4-6.5 [facility] Comment on above: Performed By: #### C BC ####[facility] [address]inoz[address] [place] [address]Dr. Eli Jarvis Neutrophils/100 WBC (Bld) 68.1 % Normal 43.0-75.0 [facility] Comment on above: Performed By: #### C BC ####[facility] [address] [place], [place] [address]Dr. Eli Jarvis Platelet mean volume (Bld) [Entitic vol] 10.3 fL Normal 9.5-13.5 [facility] Comment on above: Performed By: #### C BC ####[facility] Hfu[address] [place], [place] [address]Dr. Eli Jarvis PLT 189 103/ul Normal 150-450 [facility] Comment on above: Performed By: #### C BC ####[facility] Gxo[address]ttqw[address] [place] [address]Dr. Eli Jarvis RBC 4.96 106/ul Normal 4.70-6.10 [facility] Comment on above: Performed By: #### C BC ####[facility] [address]rg[address] [place] [address]Dr. Eli Jarvis WBC 7.0 103/ul Normal 4.0-11.0 [facility] Comment on above: Performed By: #### C BC ####[facility] [address]bir[address] [place] [address]DrSuzie Sparklealine Jarvis PROF 14(COMP METB)on 01-31-2 023 Albumin [Mass/Vol] 3.6 g/dL Normal 3.4-5.0 [facility] Comment on above: Performed By: #### C MP, BNP #### [facility] [address] [place] [address] Dr. Eli Javris Albumin/Globulin [Mass ratio] 1.1 {ratio} Normal [facility] Comment on above: Performed By: #### C MP, BNP #### [facility] [address] [place] [address] [address] Eli Jarvis ALP [Catalytic activity/Vol] 90 U/L Normal 46-116 [facility] Comment on above: Performed By: #### C MP, BNP #### [facility] [address] [place] [address] Dr. Eli Jarvis ALT [Catalytic activity/Vol] 42 U/L Normal 16-63 [facility] Comment on above: Performed By: #### C MP, BNP #### [facility] [address] [place] [address] Dr. Eli Jarvis Anion gap [Moles/Vol] 13.5 mmol/L Normal [facility] Comment on above: Performed By: #### C MP, BNP #### [facility] [address] [place] [address] Dr. Eli Jarvis AST [Catalytic activity/Vol] 26 U/L Normal 15-37 [facility] Comment on above: Performed By: #### C MP, BNP #### [facility] [address] [place] [address] Dr. Eli Jarvis Bilirubin [Mass/Vol] 0.4 mg/dL Normal 0.2-1.0 [facility] Comment on above: Performed By: #### C MP, BNP #### [facility] [address] [place] [address] Dr. Eli Jarvis Calcium [Mass/Vol] 9.3 mg/dL Normal 8.5-10.1 [facility] Comment on above: Performed By: #### C MP, BNP #### [facility] [address] [place] [address] Dr. Eli Jarvis Chloride [Moles/Vol] 104 mmol/L Normal 98-107 [facility] Comment on above: Performed By: #### C MP, BNP #### [facility] [address] [place] [address] Dr. Eli Jarvis CO2 [Moles/Vol] 25.7 mmol/L Normal 21.0-32.0 [facility] Comment on above: Performed By: #### C MP, BNP #### [facility] [address] [place] [address] Dr. Eli Jarvis Creatinine [Mass/Vol] 1.32 mg/dL Critically high 0.70-1.30 [facility] Comment on above: Performed By: #### C MP, BNP #### [facility] [address] [place] [address] Dr. Eli Jarvis EGFR-AF GERMAN >60 Normal >=60 [facility] Comment on above: Performed By: #### C MP, BNP #### [facility] [address] [place] [address] Dr. Eli Jarvis EGFR-NON AF GERMAN 53 mL/min/1.73m2 Critically low >=60 [facility] Comment on above: Performed By: #### C MP, BNP #### [facility] [address] [place] [address] Dr. Eli Jarvis Globulin (S) [Mass/Vol] 3.3 g/dL Normal [facility] Comment on above: Performed By: #### C MP, BNP #### [facility] [address] [place] [address] Dr. Eli Jarvis Glucose [Mass/Vol] 154 mg/dL Critically high 74-106 [facility] Comment on above: Performed By: #### C MP, BNP #### [facility] [address] [place] [address] Dr. Eli Jarvis Potassium [Moles/Vol] 4.2 mmol/L Normal 3.5-5.1 [facility] Comment on above: Performed By: #### C MP, BNP #### [facility] [address] [place] [address] Dr. Eli Jarvis Protein [Mass/Vol] 6.9 g/dL Normal 6.4-8.2 [facility] Comment on above: Performed By: #### C MP, BNP #### [facility] [address] [address] [address] Eli Jarvis Sodium [Moles/Vol] 139 mmol/L Normal 136-145 [facility] Comment on above: Performed By: #### C MP, BNP #### [facility] [address] [place] [address] [address] Eli Jarvis Urea nitrogen [Mass/Vol] 23.0 mg/dL Critically high 7.0-18.0 [facility] Comment on above: Performed By: #### C MP, BNP #### [facility] [address] [address] [address] Eli Jarvis Urea nitrogen/Creatinine [Mass ratio] 17.4 mg/mg Normal [facility] Comment on above: Performed By: #### C MP, BNP #### [facility] [address] [place] [address] Dr. Eli Jarvis A1C HEMOGLOBINon 11-07-2022 HbA1c (Bld) [Mass fraction] 7.6 % [employer] Other Glucose - FINGER STICKon Glucose [Mass/Vol] 172 mg/dL [employer] Other HbA1c (Bld) [Mass fraction]o n 11-07-2022 A1C HEMOGLOBIN [facility] [employer] Other US KIDNEYSon 2022 US KIDNEYS EXAMINATION: US KIDNEYS HISTORY: Acquired renal cystic disease COMPARISON: No [...] a complex cyst Electronically authenticated by: MORGAN BLUE Date: 2022 18:30 Normal [facility] A1C HEMOGLOBINon 07-27-2022 HbA1c (Bld) [Mass fraction] 7.2 % [employer] Other Glucose - FINGER STICKon Glucose [Mass/Vol] 160 mg/dL [employer] Other HbA1c (Bld) [Mass fraction]o n 07-27-2022 A1C HEMOGLOBIN [employer] Other A1C HEMOGLOBINon 04-21-2022 HbA1c (Bld) [Mass fraction] 7.6 % [employer] Other Glucose - FINGER STICKon Glucose [Mass/Vol] 184 mg/dL [employer] Other HbA1c (Bld) [Mass fraction]o n 04-21-2022 A1C HEMOGLOBIN [employer] Other [employer] Creat Ratio,Uon Albumin DL <= 20 mg/L (U) [Mass/Vol] 10.1434122 mg/dL High 0.0-1.8 mg/dL [employer] Other Albumin/Creatinine DL <= 20 mg/L (U) [Mass ratio] 70.079758 mg/g High 0.0-30.0 mg/g [employer] Other Creatinine (U) [Mass/Vol] 246.9662638 mg/dL [employer] Other CBC AUTO DIFFon 04-07-2022 BASO # 0.0 103/ul Normal 0.0-0.1 [facility] Comment on above: Performed By: #### C BC #### [facility] [address] [address] [address] Eli Jarvis Basophils/100 WBC (Bld) 0.6 % Normal 0.2-2.0 [facility] Comment on above: Performed By: #### C BC #### [facility] [address] [place] [address] Dr. Eli Jarvis EO # 0.2 103/ul Normal 0.0-0.7 [facility] Comment on above: Performed By: #### C BC #### [facility] [address] [place] [address] Dr. Eli Jarvis Eosinophils/100 WBC (Bld) 2.9 % Normal 0.9-7.0 [facility] Comment on above: Performed By: #### C BC #### [facility] [address] [place] [address] Dr. Eli Jarvis Erythrocyte distribution width (RBC) [Ratio] 13.8 % Normal 11.0-15.0 [facility] Comment on above: Performed By: #### C BC #### [facility] [address] [place] [address] Dr. Eli Jarvis Hematocrit (Bld) [Volume fraction] 40.7 % Critically low 42.0-54.0 [facility] Comment on above: Performed By: #### C BC #### [facility] [address] [place] [address] Dr. Eli Jarvis Hemoglobin (Bld) [Mass/Vol] 13.3 g/dL Critically low 14.0-18.0 [facility] Comment on above: Performed By: #### C BC #### [facility] [address] [place] [address] Dr. Eli Jarvis IG # 0.04 10e3/ul Critically high 0.00-0.03 [facility] Comment on above: Performed By: #### C BC #### [facility] [address] [place] [address] Dr. Eli Jarvis IG % 0.6 % Critically high 0.0-0.5 [facility] Comment on above: Performed By: #### C BC #### [facility] [address] [place] [address] Dr. Eli Jarvis LYMPH # 1.3 103/ul Normal 1.2-3.8 [facility] Comment on above: Performed By: #### C BC #### [facility] [address] [place] [address] Dr. Eli Jarvis Lymphocytes/100 WBC (Bld) 18.7 % Critically low 20.5-60.0 [facility] Comment on above: Performed By: #### C BC #### [facility] [address] [place] [address] Dr. Eli Jarvis MANUAL DIFF REQ NO Normal [facility] Comment on above: Performed By: #### C BC #### [facility] [address] [place] [address] Dr. Eli Jarvis MCH (RBC) [Entitic mass] 28.1 pg Normal 25.9-34.0 [facility] Comment on above: Performed By: #### C BC #### [facility] [address] [place] [address] Dr. Eli Jarvis MCHC (RBC) [Mass/Vol] 32.7 g/dL Normal 29.9-35.2 [facility] Comment on above: Performed By: #### C BC #### [facility] [address] [place] [address] Dr. Eli Jarvis MCV (RBC) [Entitic vol] 86.0 fL Normal 80.0-94.0 [facility] Comment on above: Performed By: #### C BC #### [facility] [address] [place] [address] Dr. Eli Jarvis MONO # 0.4 103/ul Normal 0.3-0.8 [facility] Comment on above: Performed By: #### C BC #### [facility] [address] [place] [address] Dr. Eli Jarvis Monocytes/100 WBC (Bld) 6.2 % Normal 1.7-12.0 [facility] Comment on above: Performed By: #### C BC #### [facility] [address] [place] [address] Dr. Eli Jarvis NEUT # 4.9 103/ul Normal 1.4-6.5 [facility] Comment on above: Performed By: #### C BC #### [facility] [address] [place] [address] [address] Eli Jarvis Neutrophils/100 WBC (Bld) 71.0 % Normal 43.0-75.0 [facility] Comment on above: Performed By: #### C BC #### [facility] [address] [place] [address] [address] Eli Jarvis Platelet mean volume (Bld) [Entitic vol] 9.9 fL Normal 9.5-13.5 [facility] Comment on above: Performed By: #### C BC #### [facility] [address] [place] [address] [address] Eli Jarvis PLT 184 103/ul Normal 150-450 [facility] Comment on above: Performed By: #### C BC #### [facility] [address] [place] [address] [address] Eli Jarvis RBC 4.73 106/ul Normal 4.70-6.10 [facility] Comment on above: Performed By: #### C BC #### [facility] [address] [place] [address] [address] Eli Jarvis WBC 6.9 103/ul Normal 4.0-11.0 [facility] Comment on above: Performed By: #### C BC #### [facility] [address] [place] [address] [address] Eli Jarvis LIPID PROFILEon 04-07-2022 CHOL-HDL RATIO NORM SEE BELOW Normal [facility] Comment on above: Result Comment: 3.3 - 4.4 LOW RISK 4.4 - 7.1 AVERAGE RISK 7.1 - 11.0 MODERATE RISK >11.0 HIGH RISK Performed By: #### C MP, LIPID ####[facility] [address] [place] [address]Dr. Eli Jarvis Cholesterol [Mass/Vol] 127 mg/dL Normal <=200 [facility] Comment on above: Performed By: #### C MP, LIPID ####[facility] [address] [place], [place] [address]Go. Eli Jarvis Cholesterol in HDL [Mass/Vol] 36 mg/dL Critically low 40-60 [facility] Comment on above: Performed By: #### C MP, LIPID ####[facility] [address] [place], [place] [address]Vl. Eli Jarvis Cholesterol in LDL [Mass/Vol] 58.4 mg/dL Normal [facility] Comment on above: Performed By: #### C MP, LIPID ####[facility] [address] [place] [id number]. lEi Jarvis Cholesterol.total/Ch olesterol in HDL [Mass ratio] 3.5 {ratio} Normal [facility] Comment on above: Performed By: #### C MP, LIPID ####[facility] [address] [place] [id number]. Eli Jarvis HDL NORMAL > or = 60 mg/dl - LO W CARDIOVASCULAR RISK <40 mg/dl - HIGH CARDIOVASCULAR RISK Normal [facility] Comment on above: Performed By: #### C MP, LIPID ####[facility] [address] [place] [id number]. Eli Jarvis LDL CALC NORMAL SEE BELOW Normal [facility] Comment on above: Result Comment: <100 mg/dl OPTIMAL 100 - 129 mg/dl NEAR OR ABOVE OPTIMAL 130 - 159 mg/dl BORDERLINE HIGH 160 - 189 mg/dl HIGH >190 mg/dl VERY HIGH Performed By: #### C MP, LIPID ####[facility] [address] [place] [id number]. Eli Jarvis Triglyceride [Mass/Vol] 163 mg/dL Critically high <=150 [facility] Comment on above: Performed By: #### C MP, LIPID ####[facility] [address] [place] [id number]. Eli Jarvis VLDL CALC 32.6 mg/dL Normal [facility] Comment on above: Performed By: #### C MP, LIPID ####[facility] [address] [place] [id number]. Eli Jarvis PROF 14(COMP METB)on 022 Albumin [Mass/Vol] 3.8 g/dL Normal 3.4-5.0 [facility] Comment on above: Performed By: #### C MP, LIPID ####[facility] [address] [place] [address]Dr. Eli Jarvis Albumin/Globulin [Mass ratio] 1.1 {ratio} Normal [facility] Comment on above: Performed By: #### C MP, LIPID ####[facility] [address] [place] [address]Dr. Eli Jarvis ALP [Catalytic activity/Vol] 89 U/L Normal 46-116 [facility] Comment on above: Performed By: #### C MP, LIPID ####[facility] [address] [place] [address]Dr. Eli Jarvis ALT [Catalytic activity/Vol] 43 U/L Normal 16-63 [facility] Comment on above: Performed By: #### C MP, LIPID ####[facility] [address] [place] [address]Dr. Eli Jarvis Anion gap [Moles/Vol] 10.7 mmol/L Normal [facility] Comment on above: Performed By: #### C MP, LIPID ####[facility] [address] [place] [address]Dr. Eli Jarvis AST [Catalytic activity/Vol] 24 U/L Normal 15-37 [facility] Comment on above: Performed By: #### C MP, LIPID ####[facility] [address] [place] [address]Dr. Eli Jarvis Bilirubin [Mass/Vol] 0.2 mg/dL Normal 0.2-1.0 [facility] Comment on above: Performed By: #### C MP, LIPID ####[facility] [address] [place] [address]Dr. Eli Jarvis Calcium [Mass/Vol] 9.1 mg/dL Normal 8.5-10.1 [facility] Comment on above: Performed By: #### C MP, LIPID ####[facility] [address] [place] [address]Dr. Eli Jarvis Chloride [Moles/Vol] 104 mmol/L Normal 98-107 [facility] Comment on above: Performed By: #### C MP, LIPID ####[facility] [address] [place] [address]Dr. Eli Jarvis CO2 [Moles/Vol] 27.5 mmol/L Normal 21.0-32.0 [facility] Comment on above: Performed By: #### C MP, LIPID ####[facility] [address] [place] [address]Dr. Eli Jarvis Creatinine [Mass/Vol] 1.15 mg/dL Normal 0.70-1.30 [facility] Comment on above: Performed By: #### C MP, LIPID ####[facility] [address] [place] [address]Dr. Eli Jarvis EGFR-AF GERMAN >60 Normal >=60 [facility] Comment on above: Performed By: #### C MP, LIPID ####[facility] [address] [place] [address]Dr. Eli Jarvis EGFR-NON AF GERMAN >60 Normal >=60 [facility] Comment on above: Performed By: #### C MP, LIPID ####[facility] [address] [place], [place] [address]Dr. Eli Jarvis Globulin (S) [Mass/Vol] 3.4 g/dL Normal [facility] Comment on above: Performed By: #### C MP, LIPID ####[facility] [address] [place] [address]Dr. Eli Jarvis Glucose [Mass/Vol] 157 mg/dL Critically high 74-106 [facility] Comment on above: Performed By: #### C MP, LIPID ####[facility] [address] [place] [address]Dr. Eli Jarvis Potassium [Moles/Vol] 4.2 mmol/L Normal 3.5-5.1 [facility] Comment on above: Performed By: #### C MP, LIPID ####[facility] [address] [place], [place] [address]Dr. Eli Jarvis Protein [Mass/Vol] 7.2 g/dL Normal 6.4-8.2 [facility] Comment on above: Performed By: #### C MP, LIPID ####[facility] [address] [place], [place] [address]Oy. Eli Jarvis Sodium [Moles/Vol] 138 mmol/L Normal 136-145 [facility] Comment on above: Performed By: #### C MP, LIPID ####[facility] [address] [place], [place] [address]Cs. Eli Jarvis Urea nitrogen [Mass/Vol] 26.0 mg/dL Critically high 7.0-18.0 [facility] Comment on above: Performed By: #### C MP, LIPID ####[facility] [address] [place] [id number]. Eli Jarvis Urea nitrogen/Creatinine [Mass ratio] 22.6 mg/mg Normal [facility] Comment on above: Performed By: #### C MP, LIPID ####[facility] [address] [place], [place] [address]Jp. Eli Jarvis A1C HEMOGLOBINon 10-21-2021 HbA1c (Bld) [Mass fraction] 6.6 % [employer] Other Glucose - FINGER STICKon Glucose [Mass/Vol] 169 mg/dL [employer] Other HbA1c (Bld) [Mass fraction]o n 10-21-2021 A1C HEMOGLOBIN [facility] [employer] Other Comprehensive Metabolic Pane deann 07-29-2021 Albumin [Mass/Vol] 3.9 g/dL 3.2-5.5 [employer] Other Albumin/Globulin [Mass ratio] 1.6 {ratio} [employer] Other ALP [Catalytic activity/Vol] 63 U/L 32-92 [employer] Other ALT [Catalytic activity/Vol] 32 U/L 10-60 [employer] Other AST [Catalytic activity/Vol] 32 U/L 10-[address] [facility] [employer] Other Bilirubin [Mass/Vol] 0.5 mg/dL 0.3-1.2 [facility] [employer] Other Calcium [Mass/Vol] 9.7 mg/dL 8.2-10.[address] [facility] [employer] Other Chloride [Moles/Vol] 105 mmol/L 95-114 [facility] [employer] Other CO2 [Moles/Vol] 22.7 mmol/L 22.0-30.0 [facility] [employer] Other Creatinine [Mass/Vol] 1.28 mg/dL 0.64-1.27 [place] [employer] Other Glucose [Mass/Vol] 111 mg/dL 70-[address] [facility] [employer] Other Potassium [Moles/Vol] 4.1 mmol/L 3.5-5.1 [place] [employer] Other Protein [Mass/Vol] 6.3 g/dL 6.1-7.[address] [facility] [employer] Other Sodium [Moles/Vol] 139 mmol/L 136-[address] [facility] [employer] Other Urea nitrogen [Mass/Vol] 23 mg/dL 9-[address] [facility] [employer] Other Comprehensive Metabolic Panel [address] [facility] [employer] Other Comprehensive Metabolic Panel > [address] [facility] [employer] Other Comprehensive Metabolic Panel 2.[address] [facility] [employer] Other Hepatitis Acute Panelon 10-2 Hepatitis Acute Panel Negative Negative [facility] [employer] Other Hepatitis Acute Panel <0.1 0.0-0.[address] [facility] [employer] Other Vital Signs Date Time Vital Sign Value Performing Clinician Facility 09-11-2023 11:00-0500 Body height 167.64 cm Tondra Mapus Other [facility] 09-11-2023 11:00-0500 Body mass index (BMI) [Ratio] 44.91 kg/m2 Tondra Mapus Other [employer] Other 09-11-2023 11:00-0500 Body weight 126.24 kg Tondra Mapus Other [employer] Other 09-11-2023 11:00-0500 Body weight 126.23 kg MD Scarlet Johnson Work Phone: [facility] 09-11-2023 11:00-0500 Diastolic blood pressure 82 mm[Hg] Tondra Mapus Other [facility] 09-11-2023 11:00-0500 Respiratory rate 18 /min Tondra Mapus Other [employer] Other 09-11-2023 11:00-0500 SaO2% (BldA) [Mass fraction] 99 % Tondra Mapus Other [facility] Other 09-11-2023 11:00-0500 Systolic blood pressure 153 mm[Hg] Tondra Mapus Other [facility] 08-24-2023 13:45-0500 Body height 167.64 cm Eligio Soni Other [facility] 08-24-2023 13:45-0500 Body mass index (BMI) [Ratio] 44.22 kg/m2 Eligio Soni Other [facility] Other 08-24-2023 13:45-0500 Body temperature 97.4 [degF] Eligio Soni Other [employer] Other 08-24-2023 13:45-0500 Body weight 124.29 kg Eligio Zachariah Other [employer] Other 08-24-2023 13:45-0500 Body weight 124.28 kg MD Scarlet Johnson Work Phone: [facility] 08-24-2023 13:45-0500 Diastolic blood pressure 60 mm[Hg] Eligio Soni Other [facility] 08-24-2023 13:45-0500 SaO2% (BldA) [Mass fraction] 97 % Eligiobrenda Soni Other [employer] Other 08-24-2023 13:45-0500 Systolic blood pressure 130 mm[Hg] Eligio Soni Other [facility] 03-07-2023 10:00-0400 Body height 167.64 cm Terry Franklin Other [employer] Other 03-07-2023 10:00-0400 Body mass index (BMI) [Ratio] 43.61 kg/m2 Terry Franklin Other [employer] Other 03-07-2023 10:00-0400 Body weight 122.56 kg Terry Franklin Other [employer] Other 03-07-2023 10:00-0400 Diastolic blood pressure 70 mm[Hg] Terry Franklin Other [facility] Other 03-07-2023 10:00-0400 Respiratory rate 20 /min Terry Franklin Other [employer] Other 03-07-2023 10:00-0400 SaO2% (BldA) [Mass fraction] 96 % Terry Franklin Other [employer] Other 03-07-2023 10:00-0400 Systolic blood pressure 134 mm[Hg] Terry Franklin Other [employer] Other 02-14-2023 09:45-0400 Body height 172.72 cm Tondra Mapus Other [employer] Other 02-14-2023 09:45-0400 Body mass index (BMI) [Ratio] 41.32 kg/m2 Tondra Mapus Other [employer] Other 02-14-2023 09:45-0400 Body weight 123.29 kg Tondra Mapus Other [employer] Other 02-14-2023 09:45-0400 Diastolic blood pressure 82 mm[Hg] Tondra Mapus Other [employer] Other 02-14-2023 09:45-0400 Respiratory rate 18 /min Tondra Mapus Other [employer] Other 02-14-2023 09:45-0400 SaO2% (BldA) [Mass fraction] 97 % Tondra Mapus Other [employer] Other 02-14-2023 09:45-0400 Systolic blood pressure 157 mm[Hg] Tondra Mapus Other [employer] Other 01-20-2023 12:15-0400 Body height 172.72 cm Carito West Other [employer] Other 01-20-2023 12:15-0400 Body mass index (BMI) [Ratio] 40.71 kg/m2 Carito Fitt Other [employer] Other 01-20-2023 12:15-0400 Body weight 121.47 kg Carito Fitt Other [employer] Other 01-05-2023 11:15-0400 Body height 172.72 cm Terry Franklin Other [employer] Other 01-05-2023 11:15-0400 Body mass index (BMI) [Ratio] 40.96 kg/m2 Terry Franklin Other [employer] Other 01-05-2023 11:15-0400 Body weight 122.2 kg Terry Franklin Other [facility] Other 01-05-2023 11:15-0400 Diastolic blood pressure 73 mm[Hg] Terry Franklin Other [employer] Other 01-05-2023 11:15-0400 Respiratory rate 18 /min Terry Franklin Other [facility] Other 01-05-2023 11:15-0400 SaO2% (BldA) [Mass fraction] 98 % Terry Franklin Other [employer] Other 01-05-2023 11:15-0400 Systolic blood pressure 143 mm[Hg] Terry Franklin Other [employer] Other 11-24-2022 12:15-0500 Body height 172.72 cm Carito Fitt Other [employer] Other 11-24-2022 12:15-0500 Body mass index (BMI) [Ratio] 42.22 kg/m2 Carito Fitt Other [employer] Other 11-24-2022 12:15-0500 Body weight 125.96 kg Carito Fitt Other [facility] Other 11-18-2022 11:15-0500 Body height 172.72 cm Terry Franklin Other [employer] Other 11-18-2022 11:15-0500 Body mass index (BMI) [Ratio] 41.96 kg/m2 Terry Franklin Other [employer] Other 11-18-2022 11:15-0500 Body weight 125.19 kg Terry Franklin Other [employer] Other 11-18-2022 11:15-0500 Diastolic blood pressure 75 mm[Hg] Terry Franklin Other [employer] Other 11-18-2022 11:15-0500 Respiratory rate 18 /min Terry Franklin Other [employer] Other 11-18-2022 11:15-0500 SaO2% (BldA) [Mass fraction] 99 % Terry Franklin Other [employer] Other 11-18-2022 11:15-0500 Systolic blood pressure 148 mm[Hg] Terry Franklin Other [employer] Other 11-07-2022 10:15-0500 Body height 172.72 cm Tondra Mapus Other [employer] Other 11-07-2022 10:15-0500 Body mass index (BMI) [Ratio] 42.58 kg/m2 Tondra Mapus Other [employer] Other 11-07-2022 10:15-0500 Body weight 127.05 kg Tondra Mapus Other [employer] Other 11-07-2022 10:15-0500 Diastolic blood pressure 83 mm[Hg] Tondra Mapus Other [employer] Other 11-07-2022 10:15-0500 Respiratory rate 18 /min Tondra Mapus Other [facility] Other 11-07-2022 10:15-0500 SaO2% (BldA) [Mass fraction] 98 % Tondra Mapus Other [employer] Other 11-07-2022 10:15-0500 Systolic blood pressure 170 mm[Hg] Tondra Mapus Other [employer] Other 10-18-2022 15:00-0500 Body height 172.72 cm Carito Fitt Other [employer] Other 2022 16:15-0400 Body height 172.72 cm Carito Fitt Other [employer] Other 07-27-2022 12:00-0400 Body height 172.72 cm Tondra Mapus Other [employer] Other 07-27-2022 12:00-0400 Body mass index (BMI) [Ratio] 40.9 kg/m2 Tondra Mapus Other [employer] Other 07-27-2022 12:00-0400 Body weight 122.02 kg Tondra Mapus Other [employer] Other 07-27-2022 12:00-0400 Diastolic blood pressure 75 mm[Hg] Tondra Mapus Other [employer] Other 07-27-2022 12:00-0400 Respiratory rate 20 /min Tondra Mapus Other [facility] Other 07-27-2022 12:00-0400 SaO2% (BldA) [Mass fraction] 97 % Tondra Mapus Other [facility] Other 07-27-2022 12:00-0400 Systolic blood pressure 141 mm[Hg] Tondra Mapus Other [employer] Other 06-08-2022 10:45-0400 Body height 172.72 cm Carito West Other [facility] Other 04-21-2022 12:00-0400 Body height 172.72 cm Tondra Mapus Other [employer] Other 04-21-2022 12:00-0400 Body mass index (BMI) [Ratio] 39.67 kg/m2 Tondra Mapus Other [employer] Other 04-21-2022 12:00-0400 Body weight 118.34 kg Tondra Mapus Other [employer] Other 04-21-2022 12:00-0400 Diastolic blood pressure 74 mm[Hg] Tondra Mapus Other [facility] Other 04-21-2022 12:00-0400 Respiratory rate 20 /min Tondra Mapus Other [employer] Other 04-21-2022 12:00-0400 SaO2% (BldA) [Mass fraction] 97 % Tondra Mapus Other [facility] Other 04-21-2022 12:00-0400 Systolic blood pressure 143 mm[Hg] Tondra Mapus Other [employer] Other 10-21-2021 12:00-0500 Body height 172.72 cm Tondra Mapus Other [facility] Other 10-21-2021 12:00-0500 Body mass index (BMI) [Ratio] 40.14 kg/m2 Tondra Mapus Other [facility] Other 10-21-2021 12:00-0500 Body weight 119.75 kg Tondra Mapus Other [facility] Other 10-21-2021 12:00-0500 Diastolic blood pressure 78 mm[Hg] Tondra Mapus Other [employer] Other 10-21-2021 12:00-0500 Respiratory rate 20 /min Tondra Mapus Other [facility] Other 10-21-2021 12:00-0500 SaO2% (BldA) [Mass fraction] 97 % Tondra Mapus Other [facility] Other 10-21-2021 12:00-0500 Systolic blood pressure 147 mm[Hg] Tondra Mapus Other [facility] Other 07-21-2021 15:45-0400 Body height 172.72 cm Morgan Kunz Other [employer] Other 07-21-2021 15:45-0400 Body mass index (BMI) [Ratio] 38.77 kg/m2 Morgan Kunz Other [employer] Other 07-21-2021 15:45-0400 Body weight 115.67 kg Morgan Kunz Other [employer] Other 12-14-2017 15:17-0500 Body height 170.18 cm MD Scarlet Johnson Work Phone: [facility] Encounters Encounter Date Encounter Type Care Provider Facility Start: 11-06-2024 ambulatory [facility] Start: 05-13-2024 ambulatory Everett Miner Facility :[facility] [place] Start: 03-13-2024 ambulatory Araceli ROME Facility :[facility] Start: 12-21-2023 ambulatory Everett Miner Facility :[facility] [place] Start: 10-18-2023 End: 10-19-2023 [facility]ulatory [facility] Start: 10-16-2023 End: 10-17-2023 ambulatory Miguelangel Mac MD Facility:[facility] Start: 09-25-2023 End: 09-26-2023 ambulatory Miguelangel Mac MD Facility:[facility] Start: 09-20-2023 End: 09-21-2023 ambulatory Everett Miner Facility:[facility] Jocelyn silva Start: 09-12-2023 End: 09-12-2023 ambulatory Tondra Mapus Other [facility] [employer] Other Start: 09-12-2023 Telephone encounter Aldo Middleton [facility] Start: 09-11-2023 (DM) Diabetes Aldo Middleton [facility] Start: 09-11-2023 End: 09-12-2023 ambulatory MD Scarlet Johnson Work Phone: [facility] [employer] Other Start: 09-11-2023 End: 09-11-2023 Discharged Recurring MD Scarlet Johnson Work Phone: [facility] Work Phone: Start: 09-11-2023 End: 09-11-2023 Patient encounter procedure MD Scarlet Johnson Work Phone: [facility] Work Phone: Start: 08-24-2023 End: 08-24-2023 Patient encounter procedure MD Scarlet Johnson Work Phone: [facility] Start: 08-24-2023 End: 08-24-2023 ambulatory MD Scarlet Johnson Work Phone: [facility] Work Phone: Start: 08-24-2023 Office outpatient ne w 60 minutes Eligio Soni [facility] Start: 08-24-2023 End: 08-24-2023 Patient encounter procedure MD Scarlet Johnson Work Phone: [facility] Work Phone: Start: 08-21-2023 End: 08-22-2023 ambulatory Everett Miner Facility:[facility] Jocelyn shira Start: 07-26-2023 End: 07-27-2023 ambulatory Everett Miner Facility:[facility] Jocelyn shira Start: 06-27-2023 ambulatory Nanette Barajas Facility:[facility] [place] Start: 06-26-2023 End: 06-27-2023 ambulatory Kaleb Mallory Facility:[facility] Start: 06-21-2023 End: 06-21-2023 ambulatory ELAINE BRENNAN [facility] Start: 06-19-2023 End: 06-20-2023 ambulatory Miguelangel Mac MD Facility:[facility] Start: 06-14-2023 End: 06-14-2023 ambulatory Tondra Mapus Other [employer] Other Start: 06-14-2023 Telephone encounter Tondra Mapus [facility] Start: 06-09-2023 End: 06-09-2023 ambulatory Carito West Other [place] [employer] Other Start: 06-09-2023 Nursing evaluation o f patient and report Carito [facility] Start: 06-09-2023 Registered Recurring MD Scarlet franks [facility] Work Phone: Start: 06-05-2023 End: 06-06-2023 ambulatory Miguelangel Mac MD Facility:[facility] Start: 05-31-2023 End: 05-31-2023 ambulatory Tondra Mapus Other [place] [employer] Other Start: 05-31-2023 Telephone encounter Tondra Juanitaus [facility] Start: 05-22-2023 End: 05-23-2023 ambulatory Miguelangel Mac MD Facility:[facility] Start: 05-15-2023 End: 05-16-2023 ambulatory Everett Miner Facility:[facility] Start: 05-10-2023 Encounter for genera l adult medical examination without abnormal findings Everett Miner [facility] Start: 05-10-2023 End: 05-11-2023 ambulatory Everett Miner Facility:[facility] Start: 04-27-2023 End: 04-28-2023 ambulatory Everett Miner Facility:[facility] Jocelyn silva Start: 03-14-2023 End: 03-15-2023 ambulatory Nanette L Karl Facility:[facility] Start: 03-10-2023 ambulatory Nanette Karl Facility:[facility] Start: 03-07-2023 Follow-up encounter Terry Ascencion Gamaliel chrisjak[facility] Start: 03-07-2023 End: 03-08-2023 ambulatory Terry Franklin [place] [employer] Other Start: 02-17-2023 End: 02-17-[address] JOVITA WOODARD . 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 Facility:[facility] Start: 12-09-[address] SCARLET JOHNSON . Facil ity:[facility] Start: 12-08-2022 End: 12-09-[address] MORGAN BLUE Facility:[facility] Start: 11-25-2022 End: 11-26-[address] TERRY FRANKLIN Facility:[facility] Start: 11-25-2022 ambulatory MARY VALENZUELACKER [facility] Start: 11-24-2022 ([facility] WMNI) WMN Initial Provider Carito Bea[facility] Start: 11-24-2022 End: 11-24-2022 ambulatory Carito West Other [facility] Other Start: 11-22-2022 End: 11-22-2022 ambulatory Tondra Mapus Other [employer] Other Start: 11-22-2022 Nursing evaluation o f patient and report Tona Juanitaus [facility] Start: 11-18-2022 End: 11-18-2022 ambulatory Terry Franklin Other [employer] Other Start: 11-18-2022 Nutrition therapy Terry Franklin [facility] Start: 11-08-2022 End: 11-09-[address] SCARLET JOHNSON . Facility:[facility] Start: 11-07-2022 (DM) Diabetes Tondra Emi [facility] Start: 11-07-2022 End: 11-07-2022 ambulatory Tondra Mapus Other [employer] Other Start: 10-18-2022 (RD) Senior Civil Engineer Carito Beavers [facility] Start: 10-18-2022 End: 10-18-2022 ambulatory Carito West Other [facility] Other Start: 08-18-2022 End: 08-19-[address] BRITTNY AGUDELO Facility:[facility] Start: 2022 ([facility] DB FU) [facility] Diabetes [facility] Start: 2022 End: 08-11-[address] ARACELI ROME [facility] [employer] Other Start: 07-29-2022 End: 07-30-[address] SCARLET JOHNSON . Facility: Start: 07-27-2022 (DM) Diabetes Tondra Mapus [facility] Start: 07-27-2022 End: 07-27-2022 ambulatory Tondra Mapus Other [employer] Other Start: 06-08-2022 (Block Mechanic) Block Mechanic Carito moreno [facility] Start: 06-08-2022 End: 06-08-2022 ambulatory Carito West Other [employer] Other Start: 04-21-2022 (DM) Diabetes Tondra Mapus [facility] Start: 04-21-2022 End: 04-21-2022 ambulatory Tondra Mapus Other [employer] Other Start: 04-21-2022 Telephone encounter Tondra Mapus [facility] Start: 04-07-2022 End: 04-08-[address] SCARLET JOHNSON . Facility: Start: 10-21-2021 (DM) Diabetes Tondra Mapus [facility] Start: 10-21-2021 End: 10-21-2021 ambulatory Tondra Mapus Other [employer] Other Start: 07-21-2021 Office outpatient ne w 45 minutes Morgan Kunz [facility] Procedures Date Procedure Procedure Detail Performing Clinician Start: 08-24-2023 Duplex scan of lower limb veins MD Scarlet Johnson Work Phone: Immunizations Immunization Date Immunization Notes Care Provider Fa cility 12-30-2020 COVID-19 Vaccine Mod gino - Documentation Purposes Only Morgan Kunz Other [facility] 12-02-2020 COVID-19 Vaccine Mod gino - Documentation Purposes Only Morgan Kunz Other [facility] Payers Date Payer Category Payer Medicare 2022 Unknown 2017 Self-pay [id number] 2017 Unknown [id number] 1959 Medicare [id number] 2.1 [id number] 1959 Unknown [id number] 2. 16.840.1.127001.19 1949 Unknown [id number] 2.16.84 0.1.456251.3.579.2.593 1949 Unknown [id number] 2.16.84 0.1.236811.3.579.2.593 1949 Unknown [id number] 2.16.84 0.1.233208.3.579.2.593 1949 Unknown [id number] 2.16.84 0.1.396428.3.579.2.593 1949 Unknown [id number] 2.16.84 0.1.496660.3.579.2.593 1949 Unknown [id number] 2.16.84 0.1.379361.3.579.2.593 1949 Unknown [id number] 2.16.84 0.1.754585.3.579.2.593 1949 Unknown [id number] 2.16.84 0.1.489403.3.579.2.593 1949 Unknown [id number] 2.16.84 0.1.534100.3.579.2.593 1949 Unknown [id number] 2.16.84 0.1.076270.3.579.2.593 1949 Unknown [id number] 2.16.84 0.1.670602.3.579.2.593 1949 Unknown [id number] 2.16.84 0.1.950753.3.579.2.593 1949 Unknown [id number] 2.16. 840.1.752873.3.579.2.196 1949 Unknown [id number] 2.16. 840.1.252979.3.579.2.196 1949 Unknown [id number] 2.16. 840.1.993448.3.579.2.196 1949 Unknown [id number] 2.16. 840.1.694283.3.579.2.196 1949 Unknown [id number] 2.16. 840.1.707122.3.579.2.196 1949 Unknown [id number] 2.16.8 40.1.334875.3.579.2.727 1949 Unknown [id number] 2.16.8 40.1.990448.3.579.2.727 1949 Unknown [id number] 2.16.8 40.1.856636.3.579.2.727 1949 Unknown [id number] 2.16.8 40.1.592702.3.579.2.727 1949 Unknown [id number] 2.16.8 40.1.911976.3.579.2.727 1949 Unknown [id number] 2.16.8 40.1.205594.3.579.2.727 1949 Unknown [id number] 2.16.8 40.1.731465.3.579.2.727 1949 Unknown [id number] 2.16.8 40.1.797513.3.579.2.727 1949 Unknown [id number] 2.16.8 40.1.425010.3.579.2.727 1949 Unknown [id number] 2.16.8 40.1.207830.3.579.2.727 1949 Unknown [id number] 2.16.8 40.1.428225.3.579.2.727 1949 Unknown [id number] 2.16.8 40.1.341323.3.579.2.727 1949 Unknown [id number] 2.16.8 40.1.650018.3.579.2.727 1949 Unknown [id number] 2.16.8 40.1.714245.3.579.2.727 Unknown Standard LIfe Ins [id number] Unknown [id number] 2.16.8 40.1.135783.3.579.2.531 Unknown [id number] 2.16.8 40.1.765570.3.579.2.531 Unknown [id number] 2.16.8 40.1.354781.3.579.2.531 Social History Date Type Detail Facility Unknown if ever smoked [employer] Other Sex Assigned At Sex Assigned At Bir th [facility] Other Start: 1950 Sex Assigned At Male F [facility] Start: 07-09-2018 Tobacco smoking status NHIS Never smoked tobacco (finding) [facility] Medical Equipment Procedure Code Equipment Code Equipment Origin al Text Equipment Identifier Dates ESWL, one kidney STENT CONTOUR 4 .8FR X 22-30CM FDA Start: 06-07-2018 ESWL, one kidney STENT CONTOUR 4 .8FR [...] Current use of insulin (ICD-10 - Z79.4) [facility] Other 11-16-2023 Evaluation note* Encounter Date Diagnosis Assessment Notes Treatment Notes Treatment Clinical Notes Aug, Cellulitis of right lower extremity (ICD-10 - L03.115) I did thoroughly review all the studies from [place]. I do not have any images to [...] was very disappointed to hear this. But Jessie came to the same result. Dr. Blue and I both agree that there is nothing surgical to offer this patient with his arteries or veins. Unfortunately he needs traditional conservative management which will include weight loss exercise and compression therapy. [facility] Other 09-13-2023 NotePatient here for 6 mo follow up CAD, hypertension, and hyperlipidemia. Denies chest pain and palpitations. Says his SOB w/ exertion remains unchanged. C/o RLE edema w/ poor wound healing. He's seeing wound care at [facility] in [place]. Had normal NARAYAN's in Jul 2022. RLE venous doppler was negative for DVT in December 2022.[facility]09-13-2023 NoteCardiovascular Medicine [facility] SUBJECTIVE Dong Whitmore is a 72 y.o. [...] DM type 2 (diabetes mellitus, type 2) ([facility]) HLD (hyperlipidemia) HTN (hypertension) Neuropathy [...] acute or reversible is (more content not included)...[facility]09-01-2023 Evaluation note* Encounter Date Diagnosis Assessment Notes Treatment Notes Treatment Clinical Notes Jun, Type 2 diabetes mellitus with diabetic chronic kidney disease (ICD-10 - E11.22) Dong and his came in today for [employer] baylee 3 training and refresher on his [...] He was given a no cut Grif Shot Bagger to try and a brochure to buy them online. We discussed the Novolog pen and that he is to use it if his BG before a meal is greater than 150. He was able to dial the pen and knows how to put the pen needle on and deliver the dose. 30 minutes were spent educating the patient by Kamlesh Sparrow RN, [facility]. [place] [employer] Other 05-30-2023 Evaluation note* Encounter Date Diagnosis [...] February, Metabolic syndrome X (ICD-10 - E88.81) [facility] Other 05-09-2023 Evaluation note* Encounter Date Diagnosis [...] hyperglycemia, or diabetes medication issues. 6. Prescriptions: [facility] JESSIE: Pioglitizone sent. 7. Prescriptions will not [...] last visit, continue with weight loss efforts [facility] Other 04-17-2023 NotePatient here for follow up [...] pain. All other systems reviewed and are negative.[facility] 01-23-2023 NoteCardiovascular Medicine [place] [facility] SUBJECTIVE Chief Complaint Patient presents with [...] is currently at a weightloss program at [facility]. He is seeing the engineering recruiter. 01/23/2023 He is down about 10lbs since [...] Obesity Sleep apnea Type 2 diabetes mellitus ([facility]) Past Medical History: Diagnosis Date CAD (coronary artery disease) DM type 2 (diabetes mellitus, type 2) ([facility]) HLD (hyperlipidemia) HTN (hypertension) Neuropathy [...] Edema present. Left l (more content not included)...[facility] 01-20-2023 Evaluation note* Encounter Date Diagnosis [...] the following goals: Add flavors to vegetables [employer]* Encounter [...] Dec, Metabolic syndrome X (ICD-10 - E88.81) [facility] Other 03-23-2023 NoteCARDIAC STRESS TEST Requesting Physician: Procedure Date:12/29/2022 PERFORMING PHYSICIAN: Elaine Brennan M.D. INDICATION: Dyspnea on exertion. STRESS TEST TYPE: Lexiscan Resting EKG: Abnormal, Resting heart rate: 82 Peak heart rate: 92 Peak maximal heart rate: 63% Resting blood pressure: 138/70 Peak blood pressure: ST changes: None. Symptoms: None. Arrhythmias: None. CONCLUSION: 1. No definite EKG evidence of ischemia. 2. Please refer to separately interpreted and reported nuclear myocardial perfusion imaging.[facility] [id number] NoteCardiovascular Medicine [facility] SUBJECTIVE Chief Complaint Patient presents with [...] is currently at a weightloss program at [facility]. He is seeing the engineering recruiter. Patient Active Problem List Diagnosis Chest pain Chronic back pain Essential hypertension Gastroesophageal reflux disease Hyperlipidemia Neuropathy Obesity Sleep apnea Type 2 diabetes mellitus ([facility]) Past Medical History: Diagnosis Date CAD (coronary artery disease) DM type 2 (diabetes mellitus, type 2) ([facility]) HLD (hyperlipidemia) HTN (hypertension) Neuropathy [...] 26, K 4.2, G (more content not included)...[facility]02-17-2023 NotePatient here for 6 mo follow up CAD, hypertension, and hyperlipidemia. He had routine labs 2 weeks ago, and had NARAYAN's in Jul 2022. He is now seeing a engineering recruiter and a diabetic specialist at [facility]. Says his MILLER is unchanged from prior [...] pain. All other systems reviewed and are negative.[facility] 11-24-2022 Evaluation note* Encounter Date Diagnosis [...] following goals: 1) Increase vegetables at dinner [employer] Other 02-14-2023 Evaluation note* Encounter Date Diagnosis [...] him and his by Kamlesh Sparrow RN, [facility]. Reviewed cgm download 11/08/22-11/20/22: Avg glucose 171. >250-1%, >180-30%, 70-180-69%, <70-0%, <540%. CV 15..2%. [employer] MAINTENANCE OPERATOR, SODA DIALYZER-C, BC-ADM [place] [employer] Other 02-10-2023 Evaluation note* Encounter Date Diagnosis [...] Nov, Metabolic syndrome X (ICD-10 - E88.81) [facility] Other 01-30-2023 Evaluation note* Encounter Date Diagnosis [...] Prescriptions: Acarbose sent to [facility]. Sample baylee 2 cgm given today. 7. [...] Pt reports has apt scheduled with Dr. Franklin for weight management Oct, Other Dong was giv en a sample Baylee 2 sensor and an office owned, loaner [place]. His phone was not compatible with Baylee 2 or 3, or Dexcom G6. He previously wore the Baylee 14 day system and did not need training on applying the device. I did train him on the use of the reader. He was vgiven samples of Grif National Business Director and Skin Tac to help keep the device in place. 45 minutes were spent educating the patient by Kamlesh Sparrow RN, [facility]. [facility] Other 01-10-2023 Evaluation note* Encounter Date Diagnosis [...] like paperwork so didn't go to dr. franklin appointment; willing to try it-has no willpower anymore; interested in a medication that will take away some cravings-tried zero sugar melanie's chocolate candy; discussed how zero sugar doesn't mean zero carb and that it will still impact his blood sugar Patient set the following goals: 1) Sign up for full weight management program2) Try roasted cronin peppers (recipe provided) [employer] Other 11-11-2022 NotePROCEDURE: XR FOOT RT MIN [...] to patient's symptoms. Electronically authenticated by: BRITTNY AGUDELO Date: 2022-08-19 06:17[facility]11-02-20[facility] Evaluation note* Encounter Date Diagnosis [...] Saira; have Saira call him (joining the N program 09/05)-Tired all the time-LOVES nuts; buys $75 of nuts when at [employer] -At night either eats nuts or cheese + crackers -Only likes south [place] cheese,-Recommended 15g or less for snacks; so [...] likes those-Increase vegetable intake-Vegetables: corn, peas, carrots [facility] Other 10-19-2022 Evaluation note* Encounter Date Diagnosis [...] printed Pt agreeable to referral to Dr. Franklin for weight management [place] [facility] Other 08-31-2022 Evaluation note* Encounter Date Diagnosis [...] and his would cook it for him [facility] Other 07-14-2022 Evaluation note* Encounter Date Diagnosis [...] improved glycemia. Pt would likek referral to engineering recruiter. Note pt has intolerance to glp1 class [...] of glucose/bp control to prevent further nephropathy [facility] Other 01-13-2022 Evaluation note* Encounter Date Diagnosis [...] medication issues. 6. Prescriptions: Pioglitazone sent to [facility]. Oct, Hyperlipidemia, unspecified hyperlipidemia type (ICD-10 - [...] brochure given today. Recommend call if interested. [facility] Other 10-13-2021 Evaluation note* Encounter Date Diagnosis Assessment Notes Treatment Notes Treatment Clinical Notes Jul, MEDEIROS (nonalcoholic steatohepatitis) (ICD-10 - K75.81) Jul, Other [facility] INDICATED ABOVE F/U HERE PRN [facility] Other Evaluation noteNo InformationNort [facility] Other Evaluation noteNo assessment information available [facility] Work Phone: [facility] Narrative - Reported* Type Description Date [...] first metatarsal 11-16-18 Hospitalization History see above [facility] Other [facility] Narrative - Reported* Type Description Date [...] me tatarsal and partial right first metatarsal 2 Surgical History Foot Surgery 10/27/2021 Hospitalization History see above [facility] Other History general Narrative - Reported* Type Description Date [...] me tatarsal and partial right first metatarsal 2 Surgical History Foot Surgery 10/27/2021 Hospitalization History see above [facility] Other Summary Purpose Family History No Family History Records Found Relationship Condition Age at Onset Recorded Date/T roshni family member Obesity Unknown father History of stroke Unknown Heart disease Unknown Unknown Diabetes mellitus Unknown grandparent Obesity Unknown Not Specified Unknown History of stroke Unknown sister Unknown Advance Directives No Advanced Directives Records Found Advance Directive Response Recorded Date/ Time Advance Directives No December 13 10:47am Chief Complaint and Reason for Visit Chief Complaint e11.65 I83.811 Chief Complaint Referred By Dr. Ja Miner For Stasis U I83.811 Dm Longer Time e11.65 Additional Source Comments REASON FOR VISIT (unrecogniz ed section and content) PATIENT HERE AT THE REQUEST OF DR JOHNSON FOR LEFT SIDED ABDOMINAL PAIN, ABNORMAL CT SCAN AND HEPATIC STEATOSIS6 month Follow up, Type 2 NIDDM f/u with [employer] MAINTENANCE OPERATOR, [employer]-C, BC-ADMlab resultsDM 6 month follow up, Type 2 NIDDM f/u with [employer] MAINTENANCE OPERATOR, [employer] D[employer]-C, BC-ADMDM dieticianDM 3 month F/U, Type 2 NIDDM f/u with [employer] MAINTENANCE OPERATOR, [employer] DIALY[employer]ER- C, BC-ADM2nd DM visitDM 3rd visit (1st of the year)DM 3 month follow up, Type 2 NIDDM f/u with [employer] MAINTENANCE OPERATOR, [employer] D[employer], BC-ADMWMN initialcgm DownloadNo InformationWMN F/URD WM f/uDM 3 month follow up, Type 2 NIDDM f/u with [employer] MAINTENANCE OPERATOR, [employer] DIALY[employer]ER-C, BC-ADM2 month Follow uporder for baylee 3 reader/sensorsInsulin pen trainingTKM Insulin pen questionsReferred by Dr. Everett Miner for stasis ulcer right legDM 3 month follow up, Type 2 IDDM f/u with [employer] MAINTENANCE OPERATOR, [employer] DIAL[employer], BC-ADMlab resultlab result (unrecognized sect ion and content) No Status Records FoundNo Status Records FoundNo Status Records FoundNo Status Records FoundNo Status Records Found INFORMATION SOURCE (unrecogn ized section and content) DATE CREATED AUTHOR 02/20/2023 [facility] DATE CREATED AUTHOR AUTHOR'S ORGANIZ ATION 07/03/2023 [facility] DATE CREATED AUTHOR AUTHOR'S ORGANIZ ATION 10/18/2023 [facility] DATE CREATED AUTHOR AUTHOR'S ORGANIZ ATION 11/15/2023 [facility] DATE CREATED AUTHOR AUTHOR'S ORGANIZ ATION 11/22/2023 [facility] Care Teams (unrecognized sec tion [...] Team Status: Inactive Member Role Status Dates Eligio Soni MD Attending Provider Active Start: August 24, 2023 End: August 24, 2023 Team Status: Inactive Member Role Status Dates Scarlet Johnson MD Primary Care Provider Active S tart: August 24, 2023 End: August 24, 2023 Eligio Soni MD Attending Provider Active Start: August 24, 2023 End: August 24, 2023 Team Status: Inactive Member Role Status Dates Aldo Middleton APRN Attending Provider Active Start: September 11, 2023 End: September 11, 2023 Team Status: Inactive Member Role Status Dates Daniel Everett MD Attending Provider Active Start: September 11, 2023 End: September 11, 2023 Scarlet Johnson MD Primary Care Provider Active S tart: September 11, 2023 End: September 11, 2023 Goals (unrecognized section and content) Goals may [...] BE BASED ON THE PRIMARY CLINICAL RECORDS. [employer] provides no warranty or guarantee of the accuracy or completeness of information in this document.
--- NOTE | 2023-12-04 11:15 | PC.NURSE ---
[facility]ob[facility] scientific reep at bedside with patient.
--- NOTE | 2023-12-04 11:22 | PC.NURSE ---
Pt assisted with dressing, then ambulated to restroom.
== END 2023-12-04 11:30 | disposition home or self-care (01) ==
PROVIDERS: PCP Family Medicine; Visit Provider Anesthesiology
DX: M48.062 Spinal stenosis, lumbar region with neurogenic claudication (principal); E11.40 Type 2 diabetes mellitus with diabetic neuropathy, unspecified
CPT/HCPCS: 36415; 63650; 77002; 82948; 95972; C1897; J2704

== ENCOUNTER 2023-12-07 11:12 | Outpatient (OUT) | payer MEDICARE, OTHER, SELFPAY ==
--- OUTSIDE RECORDS SUMMARY | 2023-12-07 11:30 | XMS_ITS | CCD ---
Author Name Unknown Address [address] [place] [address] Organization [facility] Care Team Providers Care Generator Repairer Name Role Phone Morgan Kunz Unavailable Aldo [...] Unavailable DR MORGAN BLUE V Consulting Unavailable ANDREW, DR BRITTNY Hemphill [...] Soni Unavailable MD Daniel Everett Attending Provider [phone] MD Scarlet Johnson Primary Care Provider [phone] MD Eligio Soni Attending Provider Bubba SCHUSTER, [...] Unavailable MD Scarlet Johnson Primary Care Provider MD Daniel Everett Attending Provider Eligio Soni Admitting UnavailEligio Patel Attending UnavailScarlet Valerio Primary Care Unavailable Daniel Everett Admitting Unavailable Daniel Everett Attending Unavailable Scarlet Johnson Primary Care Unavailable Terry Franklin Attending Unavailable Scarlet Johnson Primary Care Unavailable Terry Farnklin Admitting Unavailable Allergies Allergy Classification Reported Allergen(s) Allergy Type Date of Onset Reaction(s) Facility (20 sources) Cefuroxime; Translations: [CEFUROXIME] Drug Allergy 06-09-20 Unknown [facility] Repository (20 sources) celecoxib; Translations: [CELECOXIB] Drug Allergy 06-09-20 Unknown [facility]ository (20 sources) Diflunisal; Translations: [DIFLUNISAL] Drug Allergy 06-09-20 Unknown [facility]ository (20 sources) dulaglutide Drug Allergy 09-11-20 23 Unknown, g/i [facility] (20 sources) Ibuprofen Drug Allergy Unknown [facility] Other (20 sources) liraglutide; Translations: [LIRAGLUTIDE] Drug Allergy 11-25-19 23 stomach upset [facility] Repository (20 sources) metFORMIN; Translations: [METFORMIN] Drug Allergy 06-09-20 stomach upset [facility] Repository (20 sources) Naproxen; Translations: [NAPROXEN] Drug Allergy 06-09-20 Unknown [facility] Repository (20 sources) Sulindac; Translations: [Clinoril] Drug Allergy 07-10-20 15 Unknown [facility] Repository (1 source) Cefuroxime Drug Allergy 07-13-20 16 [facility] Repository (2 sources) celecoxib; Translations: [CeleBREX] Drug Allergy 07-10-20 15 [facility] Repository (2 sources) liraglutide; Translations: [Victoza] Drug Allergy [facility] Repository (1 source) metFORMIN Drug Allergy 06-15-20 17 [facility] Repository (2 sources) Naproxen; Translations: [Naprosyn] Drug Allergy 07-10-20 15 [facility] Repository (2 sources) NSAIDs; Translations: [NSAIDS (NON-STEROIDAL ANTI-INFLAMMATORY DRUG)] Drug allergy (disorder) 07-10-20 15 [facility] Repository (2 sources) Povidone-Iodine; Translations: [Dolobid] Drug Allergy 07-10-20 15 [facility] Repository (1 source) rofecoxib; Translations: [ROFECOXIB] Drug Allergy 06-09-20 [facility] Repository (3 sources) Sulindac; Translations: [SULINDAC] Drug Allergy 06-09-20 [facility] Repository (1 source) Cefuroxime; Translations: [Cefuroxime Axetil] Drug Allergy [facility] Repository (3 sources) Cephalosporins (Antibiotic); Translations: [cephalosporins] Propensity to adverse reactions (disorder) 05-29-[address] [facility] Repository (1 source) dulaglutide; Translations: [Trulicity] Drug Allergy [facility]ository (1 source) Niacin; Translations: [niacin] Drug Allergy [facility]ository (1 source) NSAIDs; Translations: [NSAIDs] Propensity to adverse reactions (disorder) [facility] Repository (1 source) rofecoxib; Translations: [Vioxx] Drug Allergy [facility] Repository (2 sources) Ibuprofen; Translations: [ibuprofen] Drug Allergy 09-11-20 [facility] (1 source) Cefuroxime Drug Allergy 09-11-20 [facility] (1 source) celecoxib Drug Allergy 09-11-20 [facility] Repository (1 source) Diflunisal Drug Allergy 09-11-20 [facility] Rep[facility] (1 source) dulaglutide Drug Allergy 09-11-20 [facility] (1 source) liraglutide Drug Allergy 09-11-20 [facility] (1 source) metFORMIN Drug Allergy 09-11-20 [facility] Rep[facility] (1 source) Naproxen Drug Allergy 09-11-20 [facility] Repository Medications Current Medications Medication Drug [...] Nitro Sublingual 0.4 Sublingual As Directed Active [place] 4-Yri-Zeu-Fish Oil (Fish Oil) 1,000 mg (120 mg-180 mg) Capsule (2 sources) Start: 05-29-20 18 [place] 6-Wnp-Xsr-Fish Oil (Fish Oil) 1,000 mg (120 mg-180 [...] day Active take 2 tablets by mo [facility] every twenty-four hours Pioglitazone HCl 15 [...] Orally once a day Active FreeStyle Baylee Mcneal - (7 sources) FreeStyle Baylee Mcneal - use with baylee sensor SQ daily [...] Coronary arteriosclerosis; Translations: [Atherosclerotic heart disease of [place] coronary artery without angina pectoris] Onset: 11-25-2022 [...] deficiency, unspecified] Chronic Other aftercare (1 source) shelter (current) use of aspirin; Translations: [ALF CURRENT USE OF ASPIRIN] Onset: 02-20-2023 Episodic Other aftercare (1 source) Other [facility]ci (current) drug therapy; Translations: [OTH ALF CURRENT DRUG THERAPY] Onset: 02-20-2023 Episodic Other aftercare (6 sources) Long-term current use of insulin; Translations: [shelter (current) use of insulin] Episodic Other aftercare (1 source) shelter (current) use of insulin Episodic Other connective [...] Value Interpretation Reference Range [facility] - MIS [id number]#1.[address] [facility] RAD - Ultrasound Reporton RAD - Ultrasound Report [id number]#1.[address] [facility] RAD - Ultrasound Report [id number]#1.[address] [facility] RAD - MISCon 10-30-2023 RAD - MISC [id number]#1.00 TIFF [facility] RAD - MRI Reporton RAD - MRI Report [id number]#1.00 TIFF [facility] Screenson 10-20-2023 Screens [id number]#1. 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 8 oz (237 mL) of milk, jqajbej-wvcrjxpwkiwn-q airy milk, and calcium-fortifiedfruit juice. Calcium-fortified means [...] Spinach (cooked), rhubarb, beets, sweet potatoes, and Cameroonian chard. ? Peanuts. ? Potato chips, bolivian fries, and baked potatoes with skin on. ? Nuts and nut products. ? Chocolate. ? If you regularly take a diuretic medicine, make sure to eat at least 1 or 2 servings of fruits or vegetables that are high in potassium each day. These include: ? Avocado. ? Banana. ? [place], prune, carrot, or tomato juice. ? Baked [...] fish oil, or vitamin B6. ? Take kmvp-vqf-roalcqy and prescription medicines only as told by your health care provider. These include supplements. What foods sh (more content not included)... [facility] Reminderson 10-18-2023 Reminders - From: Roya Álvarez To: PREM Rome; Sent: 10/18/2023 15:39:39 EST Show up: 08/18/2024 15:39:00 EST Subject: Renal US Due Date/Time: 09/17/2024 15:39:00 EST Pt needs scheduled for TERRIE prior to 1 year appointment. Being done at [facility]. order placed. Normal [facility] Urology Office/Clinic Noteon 10-18-2023 Urology Office/Clinic [...] with voice recognition artificial intelligence software, specifically [employer], [employer] and or [employer]. Substitutions may have occurred due to the [...] MD, URL [address] [address]- Additional Instructions: 1 year w/ renal US [...] benign pr (more content not included)... Normal [facility] Comment on above: Result Comment: Elec tronically Signed By: Araceli ROME MD\.br\Date and Time Signed: 10/18/23 15:45 EST\.br\Electronically Co-Signed By: Roya Álavrez\.br\Date and Time Co-Signed: 10/18/23 15:41 EST Family [...] recent A1c level, as measured by his packager hand, was 6.9%. Review of Systems PHQ Score [...] with voice recognition artificial intelligence software, specifically [employer], [employer] and or [employer]. Substitutions may have occurred due to the inherent limitations of voice recognition and artificial intelligence software. ATTESTATION: Documentation services were performed after patient or guardian consented to allow [employer] to record this visit. HEMANTH micro computer specialist and provider reviewed before signing. HEMANTH: [...] under fluo (more content not included)... Normal [facility] Comment on above: Result Comment: Elec [...] Araceli ROME MD Where: [facility] Invalid Interpretation Code [address] [place] [address]- \.br \ Monday 9:30 AM EDT \.br\ With:\.br\ Where: [facility] Family Medicine [facility] Consultation Noteon 09-18-20 23 Consultation Note [id number]#1.[address] [facility] A1C with Estimated Average G [facility] 09-11-2023 HbA1c (Bld) [Mass fraction] 6.900 % High 4.3-5.6 % [employer] [facility] [employer] Other HbA1c (Bld) [Mass fraction] 151 mg/dL [facility] [employer] Other Glucose [Mass/Vol] 151 mg/dL Normal 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 Performed By: #### A [facility] #### [address] HbA1c (Bld) [Mass fraction] 6.9 % High 4.3-5.6 [facility] Comment on above: Order Comment: Reaso n for Exam Type 2 diabetes mellitus with diabetic chronic kidney diseas Result Comment: Incr eased risk for diabetes: 5.7 - 6.4 diabetes: >6.4 glycemic control for adults with diabetes: <7.0 Performed By: #### A 1C [facility] #### [place] [id number] [facility] Glucose - FINGER STICKon Glucose [Mass/Vol] 138 mg/dL Smart [employer] Other Glucose mean value [Mass/vol ume] in Blood Estimated from glycated hemoglobinOrdered By: Aldo Middleton on 09-11-2023 Average glucose Estimated from glycated hemoglobin (Bld) [Mass/Vol] 151 mg/dL [facility] Hemoglobin A1c percentageOrd ered By: Aldo Middleton on 09-11-2023 HbA1c (Bld) [Mass fraction] 6.9 % 4.3-5.6 [facility] Comment on above: Increased risk for d iabetes: 5.7 - 6.4diabetes: >6.4glycemic control for adults with diabetes: <7.0 Consultation Noteon 09-06-20 Consultation Note [id number] 04 [id number]#1.[address] [facility] Consultation Noteon 08-28-20 Consultation Note [id number]#1.[address] [facility] US UNI ankle/arm indiceson 1 10-24-2022 US UNI ankle/arm indices [facility] [address] [place] [address] [place] [address] Ultrasound Report Signed Patient: Dong Whitmore MR#: [id number] : 1950 Acct:[id number] Age/Sex: 73 / M ADM Date: 08/24/23 Loc: [facility] Room: Type: [facility] Attending Dr: Eligio Soni MD Ordering Provider: [...] Eligio Soni MD08/24/2023 3:31 PM Dictation Location: [place] [address] Tech: Britney Arrietaaddison Transcribed By: CIRO 08/24/231530 Dictated By: Eligio Soni MD 08/24/231529 Signed By: 08/24/23 153 Normal [facility] US venous duplex LE RTon US venous duplex LE RT [facility] [place] [address] Ultrasound Report Signed Patient: Dong Whitmore MR#: [id number] : 1950 Acct:[id number] Age/Sex: 73 / M ADM Date: 08/24/23 Loc: [facility] Room: Type: [facility] Attending Dr: Eligio Soni MD Ordering Provider: [...] Eligio Soni MD08/24/2023 3:31 PM Dictation Location: [place] [address] Tech: Coby Arthur Transcribed By: CIRO 08/24/231530 Dictated By: Eligio Soni MD 08/24/231530 Signed By: 08/24/231530 [facility] Ambulatory Visit Summaryon 1 10-21-2022 Ambulatory [...] EST With: Kristofer SCHUSTER, Everett Bee Where: [facility] Invalid Interpretation Code [address] [facility], [address] [place] [address]- \.br \ Monday 9:30 AM EDT \.br\ With:\.br\ Where: [facility] Office/Clini c Noteon 08-21-2023 Family [...] kidney d (more content not included)... Normal [facility] Comment on above: Result Comment: Elec tronically Signed By: Kristofer SCHUSTER, Evertet Bee\.br\Date and Time Signed: 08/21/23 14:16 EST [...] oz glass (more content not included)... Normal [facility] Pre-Visit Planningon 023 Pre-Visit Planning - From: Ceci Yu To: Everett Miner MD; Sent: 08/17/2023 10:44:28 EST Subject: Pre-Visit Planning Due Date/Time: 08/17/2023 10:44:00 EST Caller Name: DONG WHITMORE; Caller Number: H , B [phone] Ma Dr. Miner. During a pre-visit planning chart [...] feel free to contact me at extension [phone]. Thank you! Ceci Yu LPN Invalid Interpretation Code 272 [facility] Consultation Noteon 08-10-20 23 Consultation Note [id number]#1.[address] [facility] Family Medicine Office/Clini c Noteon 07-26-2023 [...] continue to monitor along. Ordered: A1c POC 53849 Body Mass Index (BMI) documented 3008F Current [...] disease) - As above Ordered: A1c POC 88226 Body Mass Index (BMI) documented 3008F Current [...] stage 3a) - Stable Ordered: A1c POC 49906 Body Mass Index (BMI) documented 3008F Current [...] - No new issues Ordered: A1c POC 94329 Body Mass Index (BMI) documented 3008F Current [...] - BMI education given Ordered: A1c POC 98567 Body Mass Index (BMI) documented 3008F Current [...] last ye (more content not included)... Normal [facility] Comment on above: Result Comment: Elec [...] numbers. This can be done either in [place] (U.S[place] or metric measurements. Note that charts and online BMI calculators are available to help you find your BMI quickly and easily without having to do these calculations yourself. To calculate your BMI in Finnish (U.S.) measurements: 1. Measure your weight in [...] for Disease Control and Prevention: www.cdc.gov ? [place] Heart Association: www.heart.org ? National Heart, Lung, and Blood [place]: www.nhlbi.nih.gov Summary ? Body mass index (BMI) is a number that is calculated from a person's weight and height. ? BMI may help estimate how much of a person's weight is composed of fat. BMI can help identify those who may be at higher risk for certain medical problems. ? BMI can be measured using Finnish measurements or metric measurements. ? BMI charts are used to identify whether you are underweight, normal weight, overweight, or obese. This information is not intended to replace advice given to you by your health care provider. Make sure you discuss any questions you have with your health care provider. Document Revised: 06/17/2020 Document Reviewed: 04/24/2020 [employer] Patient Education ? 2022 [employer]. [facility] Physician Referralon 023 Physician Referral [id number]#1. 00TIFF [facility] Pre-Visit Planningon 023 Pre-Visit Planning - From: Ceci Yu To: Kristofer SCHUSTER, Everett Bee; Sent: 07/24/2023 15:20:33 EDT Subject: Pre-Visit Planning Due Date/Time: 07/24/2023 15:20:00 EDT Caller Name: DONG WHITMORE; Caller Number: H , B [phone] Ma Dr. Miner. During a pre-visit planning chart [...] feel free to contact me at extension [phone]. Thank you! Ceci Yu LPN From: Kristofer SCHUSTER, Everett Bee To: Ceci Yu; Sent: 07/24/2023 16:58:10 EDT Subject: RE: Pre-Visit Planning Caller Name: DONG WHITMORE; Caller Number: H , B [phone] OK to add the first one. Thank you [address] Consultation Noteon 07-19-20 Consultation Note [id number]#1.0 0TIFF [facility] Operative Reporton Operative Report [id number] 00 [id number]#1.0 0TIFF [facility] Consultation Noteon 07-03-20 Consultation Note [id number] 05 [id number]#1.00 CD:127 [facility] Nursing Note - Woundon 06-28 Nursing Note - Wound [id number] [id number]#2. 00CD:127 [facility] Physician Referralon 023 Physician Referral [id number]#1.00 CD:127 [facility] Consent for Procedure/Surger yon 06-26-2023 Consent for Procedure/Surgery [id number]#1.0 0CD:127 [facility] Consent for Treatmenton 06-09 Consent for Treatment [id number]#1.0 0CD:127 [facility] Multi-Wound Charton 06-26-20 Multi-Wound Chart [id number] 90 [id number]#1. 00CD:127 [facility] Nursing Assessment - Woundon 06-26-2023 Nursing Assessment - Wound [id number]#1. 00CD:127 [facility] Physician Orderon 06-26-2023 Physician Order [id number]#1. 00CD:127 [facility] Progress Note - Woundon 06-09 Progress Note - Wound [id number]#1. 00CD:127 [facility] Office Visiton 06-21-2023 Follow-up visit [id number] Dong Whitmore 1950 [facility] Provider Department [place] 06/21/2023 [facility]8ELAINE BRENNAN [facility] Family History Problem Relation Age of Onset Coronary artery disease Other Diabetes Other Family Status - Relation Status Age at Other Level of Service:60600 PA OFFICE/OUTPATIENT ESTABLISHED MOD MDM 30-39 MIN [facility] Operative Reporton 3 Operative Report [id number]#1.00 CD:127 [facility] Operative Reporton 3 Operative Report [id number]#1.0 0CD:127 [facility] Consultation Noteon 05-27-20 Consultation Note [id number]#1.0 0CD:127 [facility] Nursing Assessment - Woundon 05-17-2023 Nursing Assessment - Wound [id number]#1. 00CD:127 [facility] Family Medicine Office/Clini c Noteon 05-16-2023 [...] Droplet Precautions for MERS/COVID-19 : N/A Conrad Yono 05/10/2023 9:11 EDT Medicare/Medicaid Summary Height/Length Measured [...] : Living will, Medical durable power of corporate attorney Patient Wishes to Receive Further Information [...] Last Reviewed Dt/Tm: 05/10/2023 09:27:20 EDT Location: [facility] ; Anesthesia Minutes: 0 ; Procedure [...] 09:27:20 EDT Pr (more content not included)... [facility] Comment on above: Result Comment: Elec tronically Signed By: Everett Miner MD.br\Date and Time Signed: 05/16/23 13:31 EDT\.br\Electronically Co-Signed By: Conrad Yoon.br\Date and Time Co-Signed: 05/10/23 11:00 EDT Auth for Release of Medical Recordson 05-15-2023 Auth for Release of Medical Records [id number]#1.0 0CD:127 [facility] Consent for Procedure/Surger yon 05-15-2023 Consent for Procedure/Surgery [id number]#1.0 0CD:127 [facility] Consent for Treatmenton Consent for Treatment [id number]#1.0 0CD:127 [facility] Consent to Photographon Consent to Photograph [id number]#1.0 0CD:127 [facility] Correspondence - Woundon Correspondence - Wound [id number]#1.0 0CD:127 [facility] Correspondence - Wound [id number]#1.0 0CD:127 [facility] Nursing Assessment - Woundon 05-15-2023 Nursing Assessment - Wound [id number]#1.0 0CD:127 [facility] Nursing Note - Woundon 05-15 Nursing Note - Wound [id number] [id number]#1. 00CD:127 [facility] Physician Orderon 05-15-2023 Physician Order [id number]#1. 00CD:127 [facility] Progress Note - Woundon Progress Note - Wound [id number]#1. 00CD:127 [facility] Ambulatory Visit Summaryon 0 05-10-2023 Ambulatory [...] AM EDT With: Kaleb Mallory MD Where: [facility] Monday 2:20 PM EDT With: Everett Miner MD Where: [facility] Invalid Interpretation Code [address], [address] [place] [address]- \.br \ Monday 9:30 AM EDT \.br\ With:\.br\ Where: [facility] CMPon 05-10-2023 Albumin [Mass/Vol] 4.0 g/dL Normal 3.3-5.0 [facility] Comment on above: Performed By: #### 2 754691, 3280850, [id number] ####[address] [address] Albumin/Globulin (S) [Mass conc ratio] 1.2 Normal 1.1-2.2 [facility] Comment on above: Performed By: #### 2 110477, 8684159, [id number] ####[address] [address] ALP [Catalytic activity/Vol] 66 Int._Unit/L Normal 21-98 [facility] Comment on above: Performed By: #### 2 095055, 8578025, [id number] ####[address] [address] ALT No additional P-5'-P [Catalytic activity/Vol] 25 Int._Unit/L Normal 6-46 [facility] Comment on above: Performed By: #### 2 500964, 4225048, [id number] ####[address] [address] Anion gap [Moles/Vol] 11 mmol/L Normal 6-16 [facility] Comment on above: Performed By: #### 2 744733, 9837205, [id number] ####[place] [address] [place] [address] AST [Catalytic activity/Vol] 26 Int._Unit/L Normal 5-43 [facility] Comment on above: Performed By: #### 2 635185, 8961230, [id number] ####[facility] [address] [address] Bilirubin [Mass/Vol] 0.3 mg/dL Normal 0.0-1.1 [facility] Comment on above: Performed By: #### 2 315799, 2240960, 45753064 ####[facility] [address] [place] [address] Calcium [Mass/Vol] 9.2 mg/dL Normal 8.9-11.1 [facility] Comment on above: Performed By: #### 2 596853, 1004280, [id number] ####[facility] [address] [facility] [place] [facility] [place] [address] Chloride [Moles/Vol] 107 mmol/L Normal 101-111 [facility] Comment on above: Performed By: #### 2 370829, 2878683, 94477487 ####[facility] [address] [place] [address] CO2 [Moles/Vol] 23 mmol/L Normal 21-31 [facility] Comment on above: Performed By: #### 2 957428, 3911224, 34215198 ####[facility] [address] [place] [address] Creatinine [Mass/Vol] 1.3 mg/dL Normal 0.5-1.3 [facility] Comment on above: Performed By: #### 2 802493, 0295467, 77386886 ####[facility] [address] [place] [address] Globulin (S) [Mass/Vol] 3.2 g/dL Normal 1.4-4.0 [facility] Comment on above: Performed By: #### 2 [id number], [id number], [id number] ####[facility] [address] [place] [address] Glucose [Mass/Vol] 137 mg/dL Normal 55-199 [facility] Comment on above: Result Comment: If t his glucose result represents a fasting glucose, interpretation should refer to the following reference range: 55-99 mg/dL Performed By: #### 2 [id number], [id number], [id number] ####[facility] [address] [place] [address] Potassium [Moles/Vol] 4.0 mmol/L Normal 3.5-5.3 [facility] Comment on above: Performed By: #### 2 401274, [id number], [id number] ####[facility] [address] [place] [address] Protein [Mass/Vol] 7.2 g/dL Normal 6.0-7.8 [facility] Comment on above: Performed By: #### 2 962840, 1651564, [id number] ####[facility] [address] [place] [address] Sodium [Moles/Vol] 137 mmol/L Normal 135-145 [facility] Comment on above: Performed By: #### 2 392220, 9220319, [id number] ####[facility] [address] [place] [address] Urea nitrogen [Mass/Vol] 32 mg/dL High 5-21 [facility] Comment on above: Performed By: #### 2 776969, 9774023, [id number] ####[facility] [address] [place] [address] Urea nitrogen/Creatinine [Mass ratio] 25 No Units High 10-20 [facility] Comment on above: Performed By: #### 2 282009, 5986310, [id number] ####[facility] [address] [place] [address] Lipid Panelon 05-10-2023 Cholesterol [Mass/Vol] 129 mg/dL Normal 120-200 [facility] Comment on above: Performed By: #### 2 552096, 5163052, [id number] ####[facility] [address] [place] [address] Cholesterol in HDL [Mass/Vol] 34 mg/dL Invalid Interpretation Code [facility] Comment on above: Result Comment: HDL > or equal to 60 mg/dL: Low cardiovascular risk HDL < 40 mg/dL : High cardiovascular risk Performed By: #### 2 575556, 2973919, [id number] ####[facility] [address] [place] [address] Cholesterol in LDL [Mass/Vol] 63 mg/dL Normal <=129 [facility] Comment on above: Performed By: #### 2 269819, 7250441, 48113573 ####[facility] [address] [place] [address] Cholesterol in VLDL [Mass/Vol] 33 mg/dL Normal 7-40 [facility] Comment on above: Performed By: #### 2 383385, 8122311, [id number] ####[facility] [address] [place] [address] Triglyceride [Mass/Vol] 164 mg/dL High <=149 [facility] Comment on above: Performed By: #### 2 937566, 1106028, 65625784 ####[facility] [address] [place] [address] Patient Educationon 05-10-20 23 Patient Education Caregiving [...] night-lights. ? Place frequently used items in dpbh-bg-riugt places. Lower the shelves around your home [...] the way. ? Do not use floor swiss or wax that makes floors slippery. If [...] include working with a physical therapist or rehab trainer to improve your strength, balance, and endurance. Where to find more information ? Centers for Disease Control and Prevention, STEADI: www.cdc.gov ? National [place] on A[place]: www.keena.nih.gov Contact a health care [...] health ca (more content not included)... Normal [facility] Screenson 05-10-2023 Screens [id number] 0CD:[address] [facility] U Microalbon 05-10-2023 Albumin DL <= 20 mg/L (U) [Mass/Vol] 57.4 microgram/mL High 0.0-19.0 [facility] Comment on above: Performed By: #### 1 [id number], [id number] #### [facility] [address] [place] [address] U Protein/Creat Ratioon Albumin Elph (U) [Mass fraction] 20.8 mg/dL Invalid Interpretation Code [facility] Comment on above: Result Comment: The reference range and other method performance specifications have not been established for this test; results should be integrated into the clinical context for interpretation. Performed By: #### 1 [id number], [id number] ####[address] [place] [address] Creatinine (U) [Mass/Vol] 130.1 mg/dL Invalid Interpretation Code [facility] Comment on above: Result Comment: The reference range and other method performance specifications have not been established for this test; results should be integrated into the clinical context for interpretation. Performed By: #### 1 [id number], [id number] ####[address] [place] [address] U Prot/Creat Ratio 159.90 mg/gm Cr Normal .00-200.00 [facility] Comment on above: Performed By: #### 1 [id number], [id number] ####[address] [place] [address] eGFRon 05-10-2023 GFR/1.73 sq M.predicted among non-blacks MDRD (S/P/Bld) [Vol rate/Area] 58 mL/min/1.73 m2 Low >=59 [facility] Comment on above: Order Comment: Order added by Discern Expert. Result Comment: Redeye Gunner hai kidney disease could be indicated at eGFR's of less than 60 mL/min/1.73m2. Kidney failure is indicated at less than 15 mL/min/1.73m2. Performed By: #### 2 763347, 9994474, [id number] ####[facility] [address] [place] [address] Family Medicine Office/Clini c Noteon 05-01-2023 Family [...] few polyps PSA: due covid: UTD recent e5sy6-89 recent isabela-9 Acute: Current issues/complaints: discuss issues [...] has been to Dr. Simpson, his regular retail greeting card merchandiser. He thinks not by taking the toe [...] most of his life. He sees a tennis racket repairer. He last saw them a couple of [...] years since he has carried them. His packager hand ordered his lab work. He is supposed [...] his blood sugars under control with his packager hand. 5. Chronic bilateral low back pain without sciatica (M54. (more content not included)... Normal [facility] Comment on above: Result Comment: Elec tronically Signed By: Everett Miner MD\.br\Date and Time Signed: 05/01/23 11:27 EDT\.br\Electronically Co-Signed By: Dahiana Berg\.br\Date and Time Co-Signed: 04/27/23 17:48 EDT Physician Referralon 023 Physician Referral [id number] 05 [id number]. 00CD:127 [facility] Physician Referral [id number] 05 [id number]#1. 00CD:127 [facility] Ambulatory Visit Summaryon 0 04-27-2023 Ambulatory [...] Appointments Monday 9:20 AM EDT With: Where: [facility] Invalid Interpretation Code [address] [place] [address]- \.br \ Monday 2:20 PM EDT \.br\ With: Everett Miner MD\.br\ Where: [facility] Ambulatory Visit Summaryon 0 03-14-2023 Ambulatory Visit [...] Appointments Monday 9:20 AM EDT With: Where: [facility] Invalid Interpretation Code [address] [place] [address]- \.br \ Monday 8:15 AM EST \.br\ With: LATRICIA SCHUSTER, Araceli Treadwell\.br\ Where: [facility] Office/Clini c Noteon 03-14-2023 Family Medicine Office/Clinic Note Chief Complaint pt here to establish care HPI Staff establish care Establish Care: History: HTN, Diabetes Last provider: Dr Johnson Any recent labs: 11/08/2022 weeks ago Sellers Specialist: Video And Sound Recorder Melissa Lopez in [place], retail greeting card merchandiser Health Maintenance UTD: Colonoscopy: 1.5- 2 years ago few polyps other villarreal normal PSA: 04/07/22 Acute: Current issues/complaints: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 Having problems sleeping hurts the worst at night at time ca be 10/10. Cost Consultant has told him there isn't anything they [...] year 4. Hypertension (I10: Essential (primary) hypertension) tennis racket repairer just increased his meds 5. 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 Hyperlipidemia (E78.5: Hyperlipidemia, [...] BID, # 180 tab(s), Refills(s) 3, Pharmacy: [facility]/pharmacy #[id number], 170, cm, 03/14/23 9:16:00 EDT, Height/Length Dosing, 121.8, kg, 03/14/23 9:16:00 EDT, Weight Dosing Follow-up No qualifying data available Problem List/Past Medical History Ongoing Anticoagulated 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 Normal [facility] Comment on above: Result Comment: Elec tronically Signed By: Nanette Do\.br\Date and Time Signed: 03/14/23 11:03 EDT 36on 03-08-2023 36 Please let him know his kidney function is stable. Continue current medications. Follow-up as planned in 3 months. Thank you Normal [facility] A1C HEMOGLOBINon 02-14-2023 HbA1c (Bld) [Mass fraction] 7.6 % [employer] Other Glucose - FINGER STICKon Glucose [Mass/Vol] 215 mg/dL [employer] Other HbA1c (Bld) [Mass fraction]o n 02-14-2023 A1C HEMOGLOBIN [employer] Other 36on 02-13-2023 36 BP higher than goal of <130/90. Recommend increasing his losartan to 75mg daily (1.5 tablets of his current Rx) with follow-up BMP in 2 weeks. Thanks [facility] 36on 01-23-2023 36 . [facility] Office Visiton 01-23-2023 Follow-up visit [id number] Dong Whitmore 1950 M Date Provider Department Center 01/23/2023 MARY GRIFFIN Family History Problem Relation Age of Onset Coronary artery disease Other Diabetes Other Family Status - Relation Status Age at Other Level of Service:43965 PA OFFICE/OUTPATIENT ESTABLISHED MOD MDM 30-39 MIN Reason for Visit and Comments: Cardiac Stress Test [489] [facility] Telephoneon 01-23-2023 Telephone [id number] Dong Whitmore 1950 Date Provider Department Center 01/23/2023 PAPITO BROWN Family History Problem Relation Age of Onset Coronary artery disease Other Diabetes Other Family Status - Relation Status Age at Other [facility] 36on 01-06-2023 36 Patient stopped by t he office during lunch hour and spoke with Yarelis from the [facility] cardiac rehab. He wanted stress [...] if he needs RX for BP cuff. [facility] Telephoneon 01-06-2023 Telephone [id number] Carlos Whitmorewei Nur 1950 Date Provider Department Center 01/06/2023 MARY GRIFFIN Family History Problem Relation Age of Onset Coronary artery disease Other Diabetes Other Family Status - Relation Status Age at Other [facility] ECHOCARDIO M/2D COMPLETEon 0 3-24-2023 ECHOCARDIO M/2D COMPLETE Patient: DONG WHITMORE Exam Date: 12/30/2022 : 1950 Gender:M Ordering : [facility] Admission #: [id number] Family : Order #: [id number] CLICK HERE TO VIEW EXAM ECHOCARDIOGRAM REPORT [...] Thibodeaux M.D. on 12/30/2022 at 18:49 Normal [facility] STRESS/REST MULTIon 12-29 [place] STRESS/REST MULTI Patient: DONG WHITMORE Exam Date: 12/29/2022 : 1950 Gender:M Ordering : MARY [facility]NSON [facility] Admission #: [id number] Family : Order #: [id number] CLICK HERE TO VIEW EXAM RADIOLOGY REPORT [...] the study was pending per attending physician [facility] . For more details please see [...] Agudelo M.D. on 12/30/2022 at 09:41 Normal [facility] US MAMI DOP LEG RTon 12-09-19 US [...] by: MORGAN BLUE Date: 2022-12-08 16:15 Normal [facility] Office Visiton 11-25-2022 Follow-up visit [id number] Dong Whitmore 1950 Provider Department Center 11/25/2022 MARY GRIFFIN [facility] Family History Problem Relation Age of Onset Coronary artery disease Other Diabetes Other Family Status - Relation Status Age at Other Level of Service:58289 PA OFFICE/OUTPATIENT ESTABLISHED HIGH MDM 40-54 MIN Reason for Visit and Comments: Coronary Artery Disease [187] Hypertension [744215] Hyperlipidemia [182] Normal [facility] TSHon 11-25-2022 TSH 2.370 uIU/mL Normal 0.358-3.740 [facility] Comment on above: Performed By: #### T SH #### [facility] [address] [place] [address] Dr. Eli Jarvis BNPon 11-08-2022 Natriuretic peptide B (Bld) [Mass/Vol] 122.0 pg/mL Normal <=900.0 [facility] Comment on above: Performed By: #### C MP, BNP #### [facility] [address] [address] [address] Eli Jarvis CBC AUTO DIFFon 11-08-2022 BASO # 0.1 103/ul Normal 0.0-0.1 [facility] Comment on above: Performed By: #### C BC ####[facility] [address] [address]Dr. Eli Jarvis Basophils/100 WBC (Bld) 0.7 % Normal 0.2-2.0 [facility] Comment on above: Performed By: #### C BC ####[facility] [address] [place], [place] [address]Dr. Eli Jarvis EO # 0.2 103/ul Normal 0.0-0.7 [facility] Comment on above: Performed By: #### C BC ####[facility] [address] [place], [place] [address]Dr. Eli Jarvis Eosinophils/100 WBC (Bld) 3.5 % Normal 0.9-7.0 [facility] Comment on above: Performed By: #### C BC ####[facility] [address] [place], [place] [address]Dr. Eli Jarvis Erythrocyte distribution width (RBC) [Ratio] 13.8 % Normal 11.0-15.0 [facility] Comment on above: Performed By: #### C BC ####[facility] [address] [place], [place] [address]Dr. Eli Jarvis Hematocrit (Bld) [Volume fraction] 42.0 % Normal 42.0-54.0 [facility] Comment on above: Performed By: #### C BC ####[facility] [address] [place], [place] [address]Dr. Eli Jarvis Hemoglobin (Bld) [Mass/Vol] 13.8 g/dL Critically low 14.0-18.0 [facility] Comment on above: Performed By: #### C BC ####[facility] [address] [place], [place] [address]Dr. Eli Jarvis IG # 0.03 10e3/ul Normal 0.00-0.03 [facility] Comment on above: Performed By: #### C BC ####[facility] [address] [address]Dr. Eli Jarvis IG % 0.4 % Normal 0.0-0.5 [facility] Comment on above: Performed By: #### C BC ####[facility] [address] [address]DrSuzie Jarvis LYMPH # 1.3 103/ul Normal 1.2-3.8 [facility] Comment on above: Performed By: #### C BC ####[facility] [address] [address]DrSuzie Jarvis Lymphocytes/100 WBC (Bld) 18.8 % Critically low 20.5-60.0 [facility] Comment on above: Performed By: #### C BC ####[facility] [address] [place], [place] [address]DrSuzie Jarvis MANUAL DIFF REQ NO Normal [facility] Comment on above: Performed By: #### C BC ####[facility] [address] [address]DrSuzie Jarvis MCH (RBC) [Entitic mass] 27.8 pg Normal 25.9-34.0 [facility] Comment on above: Performed By: #### C BC ####[facility] [address] [address]DrSuzie Jarvis MCHC (RBC) [Mass/Vol] 32.9 g/dL Normal 29.9-35.2 [facility] Comment on above: Performed By: #### C BC ####[facility] [address] [address]DrSuzie Jarvis MCV (RBC) [Entitic vol] 84.7 fL Normal 80.0-94.0 [facility] Comment on above: Performed By: #### C BC ####[facility] [address] [place], [place] [address]DrSuzie Jarvis MONO # 0.6 103/ul Normal 0.3-0.8 [facility] Comment on above: Performed By: #### C BC ####[facility] [address] [address]Dr. Eli Jarvis Monocytes/100 WBC (Bld) 8.5 % Normal 1.7-12.0 [facility] Comment on above: Performed By: #### C BC ####[facility] [address] [address]Dr. Eli Jarvis NEUT # 4.7 103/ul Normal 1.4-6.5 [facility] Comment on above: Performed By: #### C BC ####[facility] [address] [address]Dr. Eli Jarvis Neutrophils/100 WBC (Bld) 68.1 % Normal 43.0-75.0 [facility] Comment on above: Performed By: #### C BC ####[facility] [address] [place], [place] [address]Dr. Eli Jarvis Platelet mean volume (Bld) [Entitic vol] 10.3 fL Normal 9.5-13.5 [facility] Comment on above: Performed By: #### C BC ####[facility] [address] [place], [place] [address]Dr. Eli Jarvis PLT 189 103/ul Normal 150-450 [facility] Comment on above: Performed By: #### C BC ####[facility] [address] [address]Dr. Eli Jarvis RBC 4.96 106/ul Normal 4.70-6.10 [facility] Comment on above: Performed By: #### C BC ####[facility] [address] [address]Dr. Eli Jarvis WBC 7.0 103/ul Normal 4.0-11.0 [facility] Comment on above: Performed By: #### C BC ####[facility] [address] [address]DrSuzie Sparklealine Jarvis PROF 14(COMP METB)on 01-31-2 023 Albumin [Mass/Vol] 3.6 g/dL Normal 3.4-5.0 [facility] Comment on above: Performed By: #### C MP, BNP #### [facility] [address] [place] [address] Dr. Eli Jarvis Albumin/Globulin [Mass ratio] 1.1 {ratio} Normal [facility] Comment on above: Performed By: #### C MP, BNP #### [facility] [address] [address] [address] Eli Jarvis ALP [Catalytic activity/Vol] 90 U/L Normal 46-116 [facility] Comment on above: Performed By: #### C MP, BNP #### [facility] [address] [place] [address] Dr. Eli Jarvis ALT [Catalytic activity/Vol] 42 U/L Normal 16-63 [facility] Comment on above: Performed By: #### C MP, BNP #### [facility] [address] [place] [address] Dr. Eli Jarvis Anion gap [Moles/Vol] 13.5 mmol/L Normal [facility] Comment on above: Performed By: #### C MP, BNP #### [facility] [address] [place] [address] Dr. Eli Jarvis AST [Catalytic activity/Vol] 26 U/L Normal 15-37 [facility] Comment on above: Performed By: #### C MP, BNP #### [facility] [address] [place] [address] Dr. Eli Jarvis Bilirubin [Mass/Vol] 0.4 mg/dL Normal 0.2-1.0 [facility] Comment on above: Performed By: #### C MP, BNP #### [facility] [address] [place] [address] Dr. Eli Jarvis Calcium [Mass/Vol] 9.3 mg/dL Normal 8.5-10.1 [facility] Comment on above: Performed By: #### C MP, BNP #### [facility] [address] [place] [address] Dr. Eli Jarvis Chloride [Moles/Vol] 104 mmol/L Normal 98-107 [facility] Comment on above: Performed By: #### C MP, BNP #### [facility] [address] [place] [address] Dr. Eli Jarvis CO2 [Moles/Vol] 25.7 mmol/L Normal 21.0-32.0 [facility] Comment on above: Performed By: #### C MP, BNP #### [facility] [address] [place] [address] Dr. Eli Jarvis Creatinine [Mass/Vol] 1.32 mg/dL Critically high 0.70-1.30 [facility] Comment on above: Performed By: #### C MP, BNP #### [facility] [address] [place] [address] Dr. Eli Jarvis EGFR-AF [place] >60 Normal >=60 [facility] Comment on above: Performed By: #### C MP, BNP #### [facility] [address] [place] [address] Dr. Eli Jarvis EGFR-NON AF [place] 53 mL/min/1.73m2 Critically low >=60 [facility] Comment on above: Performed By: #### C MP, BNP #### [facility] [address] [place] [address] Dr. Eli Jarvis Globulin (S) [Mass/Vol] 3.3 g/dL Normal [facility] Comment on above: Performed By: #### C MP, BNP #### [facility] [address] [place] [address] Dr. Eli Jarvis Glucose [Mass/Vol] 154 mg/dL Critically high 74-106 [facility] Comment on above: Performed By: #### C MP, BNP #### [facility] [address] [place] [address] Dr. Eli Jarvis Potassium [Moles/Vol] 4.2 mmol/L Normal 3.5-5.1 [facility] Comment on above: Performed By: #### C MP, BNP #### [facility] [address] [place] [address] Dr. Eli Jarvis Protein [Mass/Vol] 6.9 g/dL Normal 6.4-8.2 [facility] Comment on above: Performed By: #### C MP, BNP #### [facility] [address] [address] [address] Eli Jarvis Sodium [Moles/Vol] 139 mmol/L Normal 136-145 [facility] Comment on above: Performed By: #### C MP, BNP #### [facility] [address] [address] [address] Eli Jarvis Urea nitrogen [Mass/Vol] 23.0 mg/dL Critically high 7.0-18.0 [facility] Comment on above: Performed By: #### C MP, BNP #### [facility] [address] [address] [address] Eli Jarvis Urea nitrogen/Creatinine [Mass ratio] 17.4 mg/mg Normal [facility] Comment on above: Performed By: #### C MP, BNP #### [facility] [address] [place] [address] Dr. Eli Jarvis A1C HEMOGLOBINon 11-07-2022 HbA1c (Bld) [Mass fraction] 7.6 % [employer] Other Glucose - FINGER STICKon Glucose [Mass/Vol] 172 mg/dL [employer] Other HbA1c (Bld) [Mass fraction]o n 11-07-[address] [facility] [employer] Other US KIDNEYSon 2022 US KIDNEYS EXAMINATION: [...] MORGAN BLUE Date: 2022 18:30 Normal [facility] A1C HEMOGLOBINon 07-27-2022 HbA1c (Bld) [Mass fraction] 7.2 % [employer] Other Glucose - FINGER STICKon Glucose [Mass/Vol] 160 mg/dL [employer] Other HbA1c (Bld) [Mass fraction]o n 07-27-2022 A1C HEMOGLOBIN [employer] Other A1C HEMOGLOBINon 04-21-2022 HbA1c (Bld) [Mass fraction] 7.6 % [employer] Other Glucose - FINGER STICKon Glucose [Mass/Vol] 184 mg/dL [employer] Other HbA1c (Bld) [Mass fraction]o n 04-21-2022 A1C HEMOGLOBIN [employer] Other [employer] Creat Ratio,Uon Albumin DL <= 20 mg/L (U) [Mass/Vol] 10.8251464 mg/dL High 0.0-1.8 mg/dL [employer] Other Albumin/Creatinine DL <= 20 mg/L (U) [Mass ratio] 70.688555 mg/g High 0.0-30.0 mg/g [employer] Other Creatinine (U) [Mass/Vol] 236.4918835 mg/dL [employer] Other CBC AUTO DIFFon 04-07-2022 BASO # 0.0 103/ul Normal 0.0-0.1 [facility] Comment on above: Performed By: #### C BC #### [facility] [address] [address] [address] Eli Jarvis Basophils/100 WBC (Bld) 0.6 % Normal 0.2-2.0 [facility] Comment on above: Performed By: #### C BC #### [facility] [address] [place] [address] Dr. Eli Jarvis EO # 0.2 103/ul Normal 0.0-0.7 [facility] Comment on above: Performed By: #### C BC #### [facility] [address] [place] [address] Dr. Eli Jarvis Eosinophils/100 WBC (Bld) 2.9 % Normal 0.9-7.0 [facility] Comment on above: Performed By: #### C BC #### [facility] [address] [place] [address] Dr. Eli Jarvis Erythrocyte distribution width (RBC) [Ratio] 13.8 % Normal 11.0-15.0 [facility] Comment on above: Performed By: #### C BC #### [facility] [address] [place] [address] Dr. Eli Jarvis Hematocrit (Bld) [Volume fraction] 40.7 % Critically low 42.0-54.0 [facility] Comment on above: Performed By: #### C BC #### [facility] [address] [place] [address] Dr. Eli Jarvis Hemoglobin (Bld) [Mass/Vol] 13.3 g/dL Critically low 14.0-18.0 [facility] Comment on above: Performed By: #### C BC #### [facility] [address] [place] [address] Dr. Eli Jarvis IG # 0.04 10e3/ul Critically high 0.00-0.03 [facility] Comment on above: Performed By: #### C BC #### [facility] [address] [place] [address] Dr. Eli Jarvis IG % 0.6 % Critically high 0.0-0.5 [facility] Comment on above: Performed By: #### C BC #### [facility] Laboratory [address] [place] [address] Dr. Eli Jarvis LYMPH # 1.3 103/ul Normal 1.2-3.8 [facility] Comment on above: Performed By: #### C BC #### [facility] [address] [place] [address] Dr. Eli Jarvis Lymphocytes/100 WBC (Bld) 18.7 % Critically low 20.5-60.0 [facility] Comment on above: Performed By: #### C BC #### [facility] [address] [place] [address] Dr. Eli Jarvis MANUAL DIFF REQ NO Normal [facility] Comment on above: Performed By: #### C BC #### [facility] [address] [place] [address] Dr. Eli Jarvis MCH (RBC) [Entitic mass] 28.1 pg Normal 25.9-34.0 [facility] Comment on above: Performed By: #### C BC #### [facility] [address] [place] [address] Dr. Eli Jarvis MCHC (RBC) [Mass/Vol] 32.7 g/dL Normal 29.9-35.2 [facility] Comment on above: Performed By: #### C BC #### [facility] [address] [place] [address] Dr. Eli Jarvis MCV (RBC) [Entitic vol] 86.0 fL Normal 80.0-94.0 [facility] Comment on above: Performed By: #### C BC #### [facility] [address] [place] [address] Dr. Eli Jarvis MONO # 0.4 103/ul Normal 0.3-0.8 [facility] Comment on above: Performed By: #### C BC #### [facility] [address] [place] [address] Dr. Eli Jarvis Monocytes/100 WBC (Bld) 6.2 % Normal 1.7-12.0 [facility] Comment on above: Performed By: #### C BC #### [facility] [address] [place] [address] Dr. Eli Jarvis NEUT # 4.9 103/ul Normal 1.4-6.5 [facility] Comment on above: Performed By: #### C BC #### [facility] [address] [address] [address] Eli Jarvis Neutrophils/100 WBC (Bld) 71.0 % Normal 43.0-75.0 [facility] Comment on above: Performed By: #### C BC #### [facility] [address] [address] [address] Eli Jarvis Platelet mean volume (Bld) [Entitic vol] 9.9 fL Normal 9.5-13.5 [facility] Comment on above: Performed By: #### C BC #### [facility] [address] [address] [address] Eli Jarvis PLT 184 103/ul Normal 150-450 [facility] Comment on above: Performed By: #### C BC #### [facility] [address] [address] [address] Eli Jarvis RBC 4.73 106/ul Normal 4.70-6.10 [facility] Comment on above: Performed By: #### C BC #### [facility] [address] [address] [address] Eli Jarvis WBC 6.9 103/ul Normal 4.0-11.0 [facility] Comment on above: Performed By: #### C BC #### [facility] [address] [address] [address] Eli Jarvis LIPID PROFILEon 04-07-2022 CHOL-HDL RATIO NORM SEE BELOW Normal [facility] Comment on above: Result Comment: 3.3 - 4.4 LOW RISK 4.4 - 7.1 AVERAGE RISK 7.1 - 11.0 MODERATE RISK >11.0 HIGH RISK Performed By: #### C MP, LIPID ####[facility] [address] [address]Dr. Eli Jarvis Cholesterol [Mass/Vol] 127 mg/dL Normal <=200 [facility] Comment on above: Performed By: #### C MP, LIPID ####[facility] [address] [place], [place] [address]Uw. Eli Jarvis Cholesterol in HDL [Mass/Vol] 36 mg/dL Critically low 40-60 [facility] Comment on above: Performed By: #### C MP, LIPID ####[facility] [address] [place], [place] [address]Ds. Eli Jarvis Cholesterol in LDL [Mass/Vol] 58.4 mg/dL Normal [facility] Comment on above: Performed By: #### C MP, LIPID ####[facility] [address] [id number]. Eli Jarvis Cholesterol.total/Ch olesterol in HDL [Mass ratio] 3.5 {ratio} Normal [facility] Comment on above: Performed By: #### C MP, LIPID ####[facility] [address] [id number]. Eli Jarvis HDL NORMAL > or = 60 mg/dl - LO W CARDIOVASCULAR RISK <40 mg/dl - HIGH CARDIOVASCULAR RISK Normal [facility] Comment on above: Performed By: #### C MP, LIPID ####[facility] [address] [id number]. Eli Jarvis LDL CALC NORMAL SEE BELOW Normal [facility] Comment on above: Result Comment: <100 mg/dl OPTIMAL 100 - 129 mg/dl NEAR OR ABOVE OPTIMAL 130 - 159 mg/dl BORDERLINE HIGH 160 - 189 mg/dl HIGH >190 mg/dl VERY HIGH Performed By: #### C MP, LIPID ####[facility] [address] [id number]. Eli Jarvis Triglyceride [Mass/Vol] 163 mg/dL Critically high <=150 [facility] Comment on above: Performed By: #### C MP, LIPID ####[facility] [address] [id number]. Eli Jarvis VLDL CALC 32.6 mg/dL Normal [facility] Comment on above: Performed By: #### C MP, LIPID ####[facility] [address] [id number]. Eli Jarvis PROF 14(COMP METB)on 022 Albumin [Mass/Vol] 3.8 g/dL Normal 3.4-5.0 [facility] Comment on above: Performed By: #### C MP, LIPID ####[facility] [address] [address]Dr. Eli Jarvis Albumin/Globulin [Mass ratio] 1.1 {ratio} Normal [facility] Comment on above: Performed By: #### C MP, LIPID ####[facility] [address] [address]Dr. Eli Jarvis ALP [Catalytic activity/Vol] 89 U/L Normal 46-116 [facility] Comment on above: Performed By: #### C MP, LIPID ####[facility] [address] [address]Dr. Eli Jarvis ALT [Catalytic activity/Vol] 43 U/L Normal 16-63 [facility] Comment on above: Performed By: #### C MP, LIPID ####[facility] [address] [address]Dr. Eli Jarvis Anion gap [Moles/Vol] 10.7 mmol/L Normal [facility] Comment on above: Performed By: #### C MP, LIPID ####[facility] [address] [address]Dr. Eli Jarvis AST [Catalytic activity/Vol] 24 U/L Normal 15-37 [facility] Comment on above: Performed By: #### C MP, LIPID ####[facility] [address] [address]Dr. Eli Jarvis Bilirubin [Mass/Vol] 0.2 mg/dL Normal 0.2-1.0 [facility] Comment on above: Performed By: #### C MP, LIPID ####[facility] [address] [address]Dr. Eli Jarvis Calcium [Mass/Vol] 9.1 mg/dL Normal 8.5-10.1 [facility] Comment on above: Performed By: #### C MP, LIPID ####[facility] [address] [address]Dr. Eli Jarvis Chloride [Moles/Vol] 104 mmol/L Normal 98-107 [facility] Comment on above: Performed By: #### C MP, LIPID ####[facility] [address] [address]Dr. Eli Jarvis CO2 [Moles/Vol] 27.5 mmol/L Normal 21.0-32.0 [facility] Comment on above: Performed By: #### C MP, LIPID ####[facility] [address] [address]Dr. Eli Jarvis Creatinine [Mass/Vol] 1.15 mg/dL Normal 0.70-1.30 [facility] Comment on above: Performed By: #### C MP, LIPID ####[facility] [address] [address]Dr. Eli Jarvis EGFR-AF [place] >60 Normal >=60 [facility] Comment on above: Performed By: #### C MP, LIPID ####[facility] [address] [address]Dr. Eli Jarvis EGFR-NON AF [place] >60 Normal >=60 [facility] Comment on above: Performed By: #### C MP, LIPID ####[facility] [address] [place], [place] [address]Dr. Eli Jarvis Globulin (S) [Mass/Vol] 3.4 g/dL Normal [facility] Comment on above: Performed By: #### C MP, LIPID ####[facility] [address] [address]Dr. Eli Jarvis Glucose [Mass/Vol] 157 mg/dL Critically high 74-106 T [facility] Comment on above: Performed By: #### C MP, LIPID ####[facility] [address] [address]Dr. Eli Jarvis Potassium [Moles/Vol] 4.2 mmol/L Normal 3.5-5.1 [facility] Comment on above: Performed By: #### C MP, LIPID ####[facility] [address] [place], [place] [address]Dr. Eli Jarvis Protein [Mass/Vol] 7.2 g/dL Normal 6.4-8.2 [facility] Comment on above: Performed By: #### C MP, LIPID ####[facility] [address] [place], [place] [address]Ld. Eli Jarvis Sodium [Moles/Vol] 138 mmol/L Normal 136-145 [facility] Comment on above: Performed By: #### C MP, LIPID ####[facility] [address] [place], [place] [address]Xr. Eli Jarvis Urea nitrogen [Mass/Vol] 26.0 mg/dL Critically high 7.0-18.0 [facility] Comment on above: Performed By: #### C MP, LIPID ####[facility] [address] [id number]. Eli Jarvis Urea nitrogen/Creatinine [Mass ratio] 22.6 mg/mg Normal [facility] Comment on above: Performed By: #### C MP, LIPID ####[facility] [address] [place], [place] [address]Wt. Eli Jarvis A1C HEMOGLOBINon 10-21-2021 HbA1c (Bld) [Mass fraction] 6.6 % [employer] Other Glucose - FINGER STICKon Glucose [Mass/Vol] 169 mg/dL [employer] Other HbA1c (Bld) [Mass fraction]o n 10-21-[address] [facility] [employer] Other Comprehensive Metabolic Pane deann 07-29-2021 Albumin [Mass/Vol] 3.9 g/dL 3.2-5.5 [employer] Other Albumin/Globulin [Mass ratio] 1.6 {ratio} [employer] Other ALP [Catalytic activity/Vol] 63 U/L 32-92 [employer] Other ALT [Catalytic activity/Vol] 32 U/L 10-60 [employer] Other AST [Catalytic activity/Vol] 32 U/L 10-42 [facility] [employer] Other Bilirubin [Mass/Vol] 0.5 mg/dL 0.3-1.2 [facility] [employer] Other Calcium [Mass/Vol] 9.7 mg/dL 8.2-10.2 [facility] [employer] Other Chloride [Moles/Vol] 105 mmol/L 95-114 [facility] [employer] Other CO2 [Moles/Vol] 22.7 mmol/L 22.0-30.0 [facility] [employer] Other Creatinine [Mass/Vol] 1.28 mg/dL 0.64-1.27 [facility] [employer] Other Glucose [Mass/Vol] 111 mg/dL 70-100 [facility] [employer] Other Potassium [Moles/Vol] 4.1 mmol/L 3.5-5.1 [facility] [employer] Other Protein [Mass/Vol] 6.3 g/dL 6.1-7.9 [facility] [employer] Other Sodium [Moles/Vol] 139 mmol/L 136-146 [facility] [employer] Other Urea nitrogen [Mass/Vol] 23 mg/dL 9-23 [facility] [employer] Other Comprehensive Metabolic Panel 55 [facility] [employer] Other Comprehensive Metabolic Panel > 60 [facility] [employer] Other Comprehensive Metabolic Panel 2.4 [facility] [employer] Other Hepatitis Acute Panelon 10-2 Hepatitis Acute Panel Negative Negative [facility] [employer] Other Hepatitis Acute Panel <0.1 0.0-0.9 [facility] [employer] Other Vital Signs Date Time Vital Sign Value Performing Clinician Facility 09-11-2023 11:00-0500 Body height 167.64 cm Tondra Mapus Other [facility] 09-11-2023 11:00-0500 Body mass index (BMI) [Ratio] 44.91 kg/m2 Tondra Mapus Other [employer] [facility] Other 09-11-2023 11:00-0500 Body weight 126.24 kg Tondra Mapus Other [employer] Other 09-11-2023 11:00-0500 Body weight 126.23 kg MD Scarlet Johnson Work Phone: [facility] 09-11-2023 11:00-0500 Diastolic blood pressure 82 mm[Hg] Tondra Mapus Other [facility] 09-11-2023 11:00-0500 Respiratory rate 18 /min Tondra Mapus Other [facility] Other 09-11-2023 11:00-0500 SaO2% (BldA) [Mass fraction] 99 % Tondra Mapus Other [facility] Other 09-11-2023 11:00-0500 Systolic blood pressure 153 mm[Hg] Tondra Mapus Other [facility] 08-24-2023 13:45-0500 Body height 167.64 cm Eligio Soni Other [facility] 08-24-2023 13:45-0500 Body mass index (BMI) [Ratio] 44.22 kg/m2 Eligio Soni Other [employer] Other 08-24-2023 13:45-0500 Body temperature 97.4 [degF] Eligio Soni Other [facility] Other 08-24-2023 13:45-0500 Body weight 124.29 kg Eligio Zachariah Other [facility] [employer] Other 08-24-2023 13:45-0500 Body weight 124.28 kg MD Scarlet Johnson Work Phone: [facility] 08-24-2023 13:45-0500 Diastolic blood pressure 60 mm[Hg] Eligio Soni Other [facility] 08-24-2023 13:45-0500 SaO2% (BldA) [Mass fraction] 97 % Eligiobrenda Soni Other [employer] Other 08-24-2023 13:45-0500 Systolic blood pressure 130 mm[Hg] Eligio Soni Other [facility] 03-07-2023 10:00-0400 Body height 167.64 cm Terry Franklin Other [employer] Other 03-07-2023 10:00-0400 Body mass index (BMI) [Ratio] 43.61 kg/m2 Terry Franklin Other [employer] [facility] Other 03-07-2023 10:00-0400 Body weight 122.56 kg Terry Franklin Other [employer] Other 03-07-2023 10:00-0400 Diastolic blood pressure 70 mm[Hg] Terry Franklin Other [facility] [employer] Other 03-07-2023 10:00-0400 Respiratory rate 20 /min Terry Franklin Other [employer] Other 03-07-2023 10:00-0400 SaO2% (BldA) [Mass fraction] 96 % Terry Franklin Other [employer] Other 03-07-2023 10:00-0400 Systolic blood pressure 134 mm[Hg] Terry Franklin Other [employer] Other 02-14-2023 09:45-0400 Body height 172.72 cm Tondra Mapus Other [employer] [facility] Other 02-14-2023 09:45-0400 Body mass index (BMI) [Ratio] 41.32 kg/m2 Tondra Mapus Other [employer] Other 02-14-2023 09:45-0400 Body weight 123.29 kg Tondra Mapus Other [employer] Other 02-14-2023 09:45-0400 Diastolic blood pressure 82 mm[Hg] Tondra Mapus Other [employer] Other 02-14-2023 09:45-0400 Respiratory rate 18 /min Tondra Mapus Other [facility] Other 02-14-2023 09:45-0400 SaO2% (BldA) [Mass fraction] 97 % Tondra Mapus Other [facility] Other 02-14-2023 09:45-0400 Systolic blood pressure 157 mm[Hg] Tondra Mapus Other [facility] Other 01-20-2023 12:15-0400 Body height 172.72 cm Carito West Other [employer] Other 01-20-2023 12:15-0400 Body mass index (BMI) [Ratio] 40.71 kg/m2 Carito Fitt Other [facility] Other 01-20-2023 12:15-0400 Body weight 121.47 kg Carito Fitt Other [facility] Other 01-05-2023 11:15-0400 Body height 172.72 cm Terry Franlkin Other [facility] [employer] Other 01-05-2023 11:15-0400 Body mass index (BMI) [Ratio] 40.96 kg/m2 Terry Franklin Other [employer] Other 01-05-2023 11:15-0400 Body weight 122.2 kg Terry Franklin Other [employer] [facility] Other 01-05-2023 11:15-0400 Diastolic blood pressure 73 mm[Hg] Terry Franklin Other [employer] Other 01-05-2023 11:15-0400 Respiratory rate 18 /min Terry Franklin Other [employer] Other 01-05-2023 11:15-0400 SaO2% (BldA) [Mass fraction] 98 % Terry Franklin Other [employer] Other 01-05-2023 11:15-0400 Systolic blood pressure 143 mm[Hg] Terry Franklin Other [facility] [employer] Other 11-24-2022 12:15-0500 Body height 172.72 cm Carito Fitt Other [employer] Other 11-24-2022 12:15-0500 Body mass index (BMI) [Ratio] 42.22 kg/m2 Carito Fitt Other [facility] Other 11-24-2022 12:15-0500 Body weight 125.96 kg Carito Fitt Other [facility] Other 11-18-2022 11:15-0500 Body height 172.72 cm Terry Franklin Other [employer] Other 11-18-2022 11:15-0500 Body mass index (BMI) [Ratio] 41.96 kg/m2 Terry Franklin Other [employer] Other 11-18-2022 11:15-0500 Body weight 125.19 kg Terry Franklin Other [employer] Other 11-18-2022 11:15-0500 Diastolic blood pressure 75 mm[Hg] Terry Franklin Other [employer] Other 11-18-2022 11:15-0500 Respiratory rate 18 /min Terry Franklin Other [employer] Other 11-18-2022 11:15-0500 SaO2% (BldA) [Mass fraction] 99 % Terry Franklin Other [employer] Other 11-18-2022 11:15-0500 Systolic blood pressure 148 mm[Hg] Terry Franklin Other [employer] Other 11-07-2022 10:15-0500 Body height 172.72 cm Tondra Mapus Other [employer] Other 11-07-2022 10:15-0500 Body mass index (BMI) [Ratio] 42.58 kg/m2 Tondra Mapus Other [employer] [facility] Other 11-07-2022 10:15-0500 Body weight 127.05 kg Tondra Mapus Other [employer] Other 11-07-2022 10:15-0500 Diastolic blood pressure 83 mm[Hg] Tondra Mapus Other [facility] Other 11-07-2022 10:15-0500 Respiratory rate 18 /min Tondra Mapus Other [employer] Other 11-07-2022 10:15-0500 SaO2% (BldA) [Mass fraction] 98 % Tondra Mapus Other [employer] Other 11-07-2022 10:15-0500 Systolic blood pressure 170 mm[Hg] Tondra Mapus Other [facility] Other 10-18-2022 15:00-0500 Body height 172.72 cm Carito Fitt Other [facility] Other 2022 16:15-0400 Body height 172.72 cm Carito Fitt Other [facility] Other 07-27-2022 12:00-0400 Body height 172.72 cm Tondra Mapus Other [employer] [facility] Other 07-27-2022 12:00-0400 Body mass index (BMI) [Ratio] 40.9 kg/m2 Tondra Mapus Other [employer] Other 07-27-2022 12:00-0400 Body weight 122.02 kg Tondra Mapus Other [facility] Other 07-27-2022 12:00-0400 Diastolic blood pressure 75 mm[Hg] Tondra Mapus Other [facility] Other 07-27-2022 12:00-0400 Respiratory rate 20 /min Tondra Mapus Other [facility] Other 07-27-2022 12:00-0400 SaO2% (BldA) [Mass fraction] 97 % Tondra Mapus Other [employer] [facility] Other 07-27-2022 12:00-0400 Systolic blood pressure 141 mm[Hg] Tondra Mapus Other [facility] Other 06-08-2022 10:45-0400 Body height 172.72 cm Cartio West Other [employer] Other 04-21-2022 12:00-0400 Body height 172.72 cm Tondra Mapus Other [employer] Other 04-21-2022 12:00-0400 Body mass index (BMI) [Ratio] 39.67 kg/m2 Tondra Mapus Other [employer] Other 04-21-2022 12:00-0400 Body weight 118.34 kg Tondra Mapus Other [employer] Other 04-21-2022 12:00-0400 Diastolic blood pressure 74 mm[Hg] Tondra Mapus Other [employer] Other 04-21-2022 12:00-0400 Respiratory rate 20 /min Tondra Mapus Other [employer] Other 04-21-2022 12:00-0400 SaO2% (BldA) [Mass fraction] 97 % Tondra Mapus Other [employer] Other 04-21-2022 12:00-0400 Systolic blood pressure 143 mm[Hg] Tondra Mapus Other [employer] Other 10-21-2021 12:00-0500 Body height 172.72 cm Tondra Mapus Other [employer] Other 10-21-2021 12:00-0500 Body mass index (BMI) [Ratio] 40.14 kg/m2 Tondra Mapus Other [employer] Other 10-21-2021 12:00-0500 Body weight 119.75 kg Tondra Mapus Other [employer] Other 10-21-2021 12:00-0500 Diastolic blood pressure 78 mm[Hg] Tondra Mapus Other [employer] Other 10-21-2021 12:00-0500 Respiratory rate 20 /min Tondra Mapus Other [employer] Other 10-21-2021 12:00-0500 SaO2% (BldA) [Mass fraction] 97 % Tondra Mapus Other [employer] Other 10-21-2021 12:00-0500 Systolic blood pressure 147 mm[Hg] Tondra Mapus Other [employer] Other 07-21-2021 15:45-0400 Body height 172.72 cm Morgan Kunz Other [employer] Other 07-21-2021 15:45-0400 Body mass index (BMI) [Ratio] 38.77 kg/m2 Morgan Kunz Other [employer] Other 07-21-2021 15:45-0400 Body weight 115.67 kg Morgan Kunz Other [employer] Other 12-14-2017 15:17-0500 Body height 170.18 cm MD Scarlet Johnson Work Phone: [facility] Encounters Encounter Date Encounter Type Care Provider Facility Start: 11-06-2024 [facility] Start: 05-13-2024 ambulatory Everett Miner Facility :[facility] Start: 03-13-2024 ambulatory Araceli ROME Facility :[facility] Start: 12-21-2023 ambulatory Everett Miner Facility :[facility] Start: 10-18-2023 End: 10-19-2023 [facility] Start: 10-16-2023 End: 10-17-2023 ambulatory Miguelangel Mac MD Facility:[facility] Start: 09-25-2023 End: 09-26-2023 ambulatory Miguelangel Mac MD Facility:[facility] Start: 09-20-2023 End: 09-21-2023 ambulatory Everett Miner Facility:[facility] Jocelyn silva Start: 09-12-2023 End: 09-12-2023 ambulatory Tondra Mapus Other [facility] [employer] Other Start: 09-12-2023 Telephone encounter Aldo Middleton [facility] Start: 09-11-2023 (DM) Diabetes Aldo Middleton [facility] Start: 09-11-2023 End: 09-12-2023 ambulatory MD Scarlet Johnson Work Phone: [facility] [employer] Other Start: 09-11-2023 End: 09-11-2023 Discharged Recurring MD Scarlet Johnson Work Phone: [facility] Work Phone: Start: 09-11-2023 End: 09-11-2023 Patient encounter procedure MD Scarlet Johnson Work Phone: [facility] Work Phone: Start: 08-24-2023 End: 08-24-2023 Patient encounter procedure MD Scarlet Johnson Work Phone: [facility] Start: 08-24-2023 End: 08-24-2023 ambulatory MD Scarlet Johnson Work Phone: [facility] Work Phone: Start: 08-24-2023 Office outpatient ne w 60 minutes Eligio Soni [facility] Start: 08-24-2023 End: 08-24-2023 Patient encounter procedure MD Scarlet Johnson Work Phone: [facility] Work Phone: Start: 08-21-2023 End: 08-22-2023 ambulatory Everett Miner Facility:[facility] Jocelyn shira Start: 07-26-2023 End: 07-27-2023 ambulatory Everett Miner Facility:[facility] Jocelyn shira Start: 06-27-2023 ambulatory Nanette Barajas Facility:[facility] Start: 06-26-2023 End: 06-27-2023 ambulatory Kaleb Mallory Facility:[facility] Start: 06-21-2023 End: 06-21-2023 ambulatory ELAINE BRENNAN [facility] Start: 06-19-2023 End: 06-20-2023 ambulatory Miguelangel Mac MD Facility:[facility] Start: 06-14-2023 End: 06-14-2023 ambulatory Tondra Mapus Other [employer] Other Start: 06-14-2023 Telephone encounter Tondra Mapus [facility] Start: 06-09-2023 End: 06-09-2023 ambulatory Carito West Other [facility] [employer] Other Start: 06-09-2023 Nursing evaluation o f patient and report Carito West [facility] Start: 06-09-2023 Registered Recurring MD Scarlet franks [facility] Work Phone: Start: 06-05-2023 End: 06-06-2023 ambulatory Miguelangel Mac MD Facility:[facility] Start: 05-31-2023 End: 05-31-2023 ambulatory Tondra Mapus Other [facility] [employer] Other Start: 05-31-2023 Telephone encounter Tondra Juanitaus [facility] Start: 05-22-2023 End: 05-23-2023 ambulatory Miguelangel Mac MD Facility:[facility] Start: 05-15-2023 End: 05-16-2023 ambulatory Everett Miner Facility:[facility] Start: 05-10-2023 Encounter for genera l adult medical examination without abnormal findings Everett Miner [facility] Start: 05-10-2023 End: 05-11-2023 ambulatory Everett Miner Facility:[facility] Start: 04-27-2023 End: 04-28-2023 ambulatory Everett Miner Facility:[facility] Jocelyn silva Start: 03-14-2023 End: 03-15-2023 ambulatory Nanette L Karl Facility:[facility]oc[facility] shira Start: 03-10-2023 ambulatory Nanette Karl Facility:[facility] Start: 03-07-2023 Follow-up encounter Terry Ascencion Gamaliel [facility] Start: 03-07-2023 End: 03-08-2023 ambulatory Terry Franklin [facility] [employer] Other Start: 02-17-2023 End: 02-17-[address] JOVITA WOODARD . Facility:[facility] Start: 02-14-2023 (DM) Diabetes Tondra Juanitaus [facility] Start: 02-14-2023 End: 02-14-2023 ambulatory Tondra Mapus Other [employer] Other Start: 01-23-2023 End: 01-23-2023 ambulatory [facility] Start: 01-20-2023 ([facility] RD FU) [facility] F/ U Registerd [employer]actor Helper Carito West [facility] Start: 01-20-2023 End: 01-20-2023 ambulatory Carito West Other [employer] Other Start: 01-05-2023 End: 01-05-2023 ambulatory Terry Franklin Other [employer] Other Start: 01-05-2023 Follow-up encounter Terry moreno [...] FRANKLIN Facility:H1 Start: 11-25-2022 ambulatory [facility] Start: 11-24-2022 ([facility] WMNI) WMN Initial Provider [facility] Start: 11-24-2022 End: 11-24-2022 ambulatory Carito West Other [facility] Other Start: 11-22-2022 End: 11-22-2022 ambulatory Tondra Mapus Other [facility] Other Start: 11-22-2022 Nursing evaluation o f patient and report Tona Juanitaus [facility] Start: 11-18-2022 End: 11-18-2022 ambulatory Terry Franklin Other [facility] Other Start: 11-18-2022 Nutrition therapy Terry Franklin [facility] Start: 11-08-2022 End: 11-09-[address] SCARLET JOHNSON . Facility:H1 Start: 11-07-2022 (DM) Diabetes Tondra Emi [facility] Start: 11-07-2022 End: 11-07-2022 ambulatory Tondra Mapus Other [facility] Other Start: 10-18-2022 (RD) Cardiac Technician Carito Beavers [facility] Start: 10-18-2022 End: 10-18-2022 ambulatory Carito West Other [facility] Other Start: 08-18-2022 End: 08-19-[address] BRITTNY AGUDELO Facility:H1 Start: 2022 ([facility] DB FU) [facility] F[facility] Start: 2022 End: 08-11-[address] ARACELI ROME [facility] [employer] Other Start: 07-29-2022 End: 07-30-[address] SCARLET JOHNSON . Facility: Start: 07-27-2022 (DM) Diabetes Tondra Mapus [facility] Start: 07-27-2022 End: 07-27-2022 ambulatory Tondra Mapus Other [facility] Other Start: 06-08-2022 ([facility]) [facility]ito moreno [facility] Start: 06-08-2022 End: 06-08-2022 ambulatory Carito West Other [facility] Other Start: 04-21-2022 (DM) Diabetes Tondra Mapus [facility] Start: 04-21-2022 End: 04-21-2022 ambulatory Tondra Mapus Other [facility] Other Start: 04-21-2022 Telephone encounter Tondra Mapus [facility] Start: 04-07-2022 End: 04-08-[address] SCARLET JOHNSON . Facility: Start: 10-21-2021 (DM) Diabetes Tondra Mapus [facility] Start: 10-21-2021 End: 10-21-2021 ambulatory Tondra Mapus Other [facility] Other Start: 07-21-2021 Office outpatient ne w 45 minutes Morgan Kunz [facility] Procedures Date Procedure Procedure Detail Performing Clinician Start: 08-24-2023 Duplex scan of lower limb veins MD Scarlet Johnson Work Phone: Immunizations Immunization Date Immunization Notes Care Provider Fa cility 12-30-2020 COVID-19 Vaccine Mod gino - Documentation Purposes Only Morgan Kunz Other [facility] 12-02-2020 COVID-19 Vaccine Mod gino - Documentation Purposes Only Morgan Kunz Other [facility] Payers Date Payer Category Payer Medicare 2022 Unknown 2017 Self-pay [id number] 2017 Unknown [id number] 1959 Medicare [id number] 2.1 [id number] 1959 Unknown [id number] 2. 16.840.1.245483.19 1949 Unknown [id number] 2.16.84 0.1.048512.3.579.2.593 1949 Unknown [id number] 2.16.84 0.1.971267.3.579.2.593 1949 Unknown [id number] 2.16.84 0.1.321337.3.579.2.593 1949 Unknown [id number] 2.16.84 0.1.976001.3.579.2.593 1949 Unknown [id number] 2.16.84 0.1.355001.3.579.2.593 1949 Unknown [id number] 2.16.84 0.1.291598.3.579.2.593 1949 Unknown [id number] 2.16.84 0.1.073434.3.579.2.593 1949 Unknown [id number] 2.16.84 0.1.456824.3.579.2.593 1949 Unknown [id number] 2.16.84 0.1.683979.3.579.2.593 1949 Unknown [id number] 2.16.84 0.1.179964.3.579.2.593 1949 Unknown [id number] 2.16.84 0.1.934862.3.579.2.593 1949 Unknown [id number] 2.16.84 0.1.223639.3.579.2.593 1949 Unknown [id number] 2.16. 840.1.287104.3.579.2.196 1949 Unknown [id number] 2.16. 840.1.612174.3.579.2.196 1949 Unknown [id number] 2.16. 840.1.340385.3.579.2.196 1949 Unknown [id number] 2.16. 840.1.479350.3.579.2.196 1949 Unknown [id number] 2.16. 840.1.566971.3.579.2.196 1949 Unknown [id number] 2.16.8 40.1.918478.3.579.2.727 1949 Unknown [id number] 2.16.8 40.1.389051.3.579.2.727 1949 Unknown [id number] 2.16.8 40.1.796336.3.579.2.727 1949 Unknown [id number] 2.16.8 40.1.630243.3.579.2.727 1949 Unknown [id number] 2.16.8 40.1.855897.3.579.2.727 1949 Unknown [id number] 2.16.8 40.1.807725.3.579.2.727 1949 Unknown [id number] 2.16.8 40.1.194985.3.579.2.727 1949 Unknown [id number] 2.16.8 40.1.036234.3.579.2.727 1949 Unknown [id number] 2.16.8 40.1.328513.3.579.2.727 1949 Unknown [id number] 2.16.8 40.1.703415.3.579.2.727 1949 Unknown [id number] 2.16.8 40.1.713695.3.579.2.727 1949 Unknown [id number] 2.16.8 40.1.112955.3.579.2.727 1949 Unknown [id number] 2.16.8 40.1.024061.3.579.2.727 1949 Unknown [id number] 2.16.8 40.1.393235.3.579.2.727 Unknown Standard LIfe Ins [id number] Unknown [id number] 2.16.8 40.1.560577.3.579.2.531 Unknown [id number] 2.16.8 40.1.647660.3.579.2.531 Unknown 2011 2.16.8 40.1.489597.3.579.2.531 Social History Date Type Detail Facility Unknown if ever smoked [facility] Other Sex Assigned At Sex Assigned At Bir th [facility] Other Start: 1950 Sex Assigned At Male F [facility] Start: 07-09-2018 Tobacco smoking status NHIS Never smoked tobacco (finding) [facility] Medical Equipment Procedure Code Equipment Code [...] Current use of insulin (ICD-10 - Z79.4) [facility] Other 11-16-2023 Evaluation note* Encounter Date Diagnosis Assessment Notes Treatment Notes Treatment Clinical Notes Aug, Cellulitis of right lower extremity (ICD-10 - L03.115) I did thoroughly review all the studies from [facility]. I do not have any images to [...] include weight loss exercise and compression therapy. [facility] Other 09-13-2023 NotePatient here for 6 mo follow up CAD, hypertension, and hyperlipidemia. Denies chest pain and palpitations. Says his SOB w/ exertion remains unchanged. C/o RLE edema w/ poor wound healing. He's seeing wound care at [facility] in [place]. Had normal NARAYAN's in Jul 2022. RLE venous doppler was negative for DVT in December 2022.[facility]09-13-2023 NoteCardiovascular Medicine [facility] SUBJECTIVE Dong Whitmore is a 72 [...] DM type 2 (diabetes mellitus, type 2) ([facility]) HLD (hyperlipidemia) HTN (hypertension) Neuropathy ULISES [...] acute or reversible is (more content not included)...[facility]09-01-2023 Evaluation note* Encounter Date Diagnosis Assessment Notes Treatment Notes Treatment Clinical Notes Jun, Type 2 diabetes mellitus with diabetic chronic kidney disease (ICD-10 - E11.22) Dong and his came in today for Nexi baylee 3 training and refresher on his [...] He was given a no cut [place] Tax Auditor to try and a brochure to buy them online. We discussed the Novolog pen and that he is to use it if his BG before a meal is greater than 150. He was able to dial the pen and knows how to put the pen needle on and deliver the dose. 30 minutes were spent educating the patient by Kamlesh Sparrow RN, [facility]. [facility] Other 05-30-2023 Evaluation note* Encounter Date Diagnosis [...] February, Metabolic syndrome X (ICD-10 - E88.81) [facility] Other 05-09-2023 Evaluation note* Encounter Date Diagnosis [...] hyperglycemia, or diabetes medication issues. 6. Prescriptions: [facility]: Pioglitizone sent. 7. Prescriptions will not [...] last visit, continue with weight loss efforts [facility] Other 04-17-2023 NotePatient here for follow up [...] pain. All other systems reviewed and are negative.[facility] 01-23-2023 NoteCardiovascular Medicine [facility] SUBJECTIVE Chief Complaint Patient presents with [...] is currently at a weightloss program at [facility]. He is seeing the clothing pattern preparer. 01/23/2023 He is down about 10lbs since [...] Obesity Sleep apnea Type 2 diabetes mellitus ([facility]) Past Medical History: Diagnosis Date CAD (coronary artery disease) DM type 2 (diabetes mellitus, type 2) ([facility]) HLD (hyperlipidemia) HTN (hypertension) Neuropathy ULISES [...] Edema present. Left l (more content not included)...[facility] 01-20-2023 Evaluation note* Encounter Date Diagnosis [...] the following goals: Add flavors to vegetables [facility]05[facility] [facility] Evaluation note* Encounter Date Diagnosis [...] Dec, Metabolic syndrome X (ICD-10 - E88.81) [facility] Other 03-23-2023 NoteCARDIAC STRESS TEST Requesting Physician: [...] interpreted and reported nuclear myocardial perfusion imaging.[id number] NoteCardiovascular Medicine [facility] SUBJECTIVE Chief Complaint Patient presents with [...] is currently at a weightloss program at [facility]. He is seeing the clothing pattern preparer. Patient Active Problem List Diagnosis Chest pain Chronic back pain Essential hypertension Gastroesophageal reflux disease Hyperlipidemia Neuropathy Obesity Sleep apnea Type 2 diabetes mellitus ([facility]) Past Medical History: Diagnosis Date CAD (coronary artery disease) DM type 2 (diabetes mellitus, type 2) ([facility]) HLD (hyperlipidemia) HTN (hypertension) Neuropathy ULISES [...] 26, K 4.2, G (more content not included)...[facility]02-17-2023 NotePatient here for 6 mo follow up CAD, hypertension, and hyperlipidemia. He had routine labs 2 weeks ago, and had NARAYAN's in Jul 2022. He is now seeing a clothing pattern preparer and a diabetic specialist at [facility]. Says his MILLER is unchanged from prior [...] pain. All other systems reviewed and are negative.[facility] 11-24-2022 Evaluation note* Encounter Date Diagnosis [...] following goals: 1) Increase vegetables at dinner [facility] Other 02-14-2023 Evaluation note* Encounter Date Diagnosis [...] him and his by Kamlesh Sparrow RN, [facility]. Reviewed cgm download 11/08/22-11/20/22: Avg glucose 171. >250-1%, >180-30%, 70-180-69%, <70-0%, <540%. CV 15..2%. [employer] SUPERVISOR BRINE, ANTISQUEAK FILLER-C, BC-ADM Mary Esther [facility] Other 02-10-2023 Evaluation note* Encounter Date Diagnosis [...] Nov, Metabolic syndrome X (ICD-10 - E88.81) [facility] Other 01-30-2023 Evaluation note* Encounter Date Diagnosis [...] medication issues. 6. Prescriptions: Acarbose sent to [facility]. Sample baylee 2 cgm given today. 7. [...] 2 sensor and an office owned, loaner Mcneal. His phone was not compatible with Baylee 2 or 3, or Dexcom G6. He previously wore the Baylee 14 day system and did not need training on applying the device. I did train him on the use of the reader. He was vgiven samples of Grif [place] Pocket Machine Operator and Skin Tac to help keep the device in place. 45 minutes were spent educating the patient by Kamlesh Sparrow RN, [facility]. [facility] Other 01-10-2023 Evaluation note* Encounter Date Diagnosis [...] program2) Try roasted cronin peppers (recipe provided) [facility] Other 11-11-2022 NotePROCEDURE: XR FOOT RT MIN [...] Electronically authenticated by: BRITTNY AGUDELO Date: 2022-08-19 06:17[facility]11-02-2022 Evaluation note* Encounter Date Diagnosis Assessment Notes [...] nuts or cheese + crackers -Only likes v[place] citizen cheese,-Recommended 15g or less for snacks; so [...] likes those-Increase vegetable intake-Vegetables: corn, peas, carrots [facility] Other 10-19-2022 Evaluation note* Encounter Date Diagnosis [...] referral to Dr. Franklin for weight management Mary Esther [facility] Other 08-31-2022 Evaluation note* Encounter Date Diagnosis [...] and his would cook it for him [facility] Other 07-14-2022 Evaluation note* Encounter Date Diagnosis [...] improved glycemia. Pt would likek referral to clothing pattern preparer. Note pt has intolerance to glp1 class [...] of glucose/bp control to prevent further nephropathy [facility] Other 01-13-2022 Evaluation note* Encounter Date Diagnosis [...] medication issues. 6. Prescriptions: Pioglitazone sent to [facility]. Oct, Hyperlipidemia, unspecified hyperlipidemia type (ICD-10 [...] brochure given today. Recommend call if interested. [facility] Other 10-13-2021 Evaluation note* Encounter Date Diagnosis Assessment Notes Treatment Notes Treatment Clinical Notes Jul, MEDEIROS (nonalcoholic steatohepatitis) (ICD-10 - K75.81) Jul, Other [facility] INDICATED ABOVE F/U HERE PRN [facility] Other Evaluation noteNo InformationNort [employer] Other Evaluation noteNo assessment information available [facility] Work Phone: Hisodvq general Narrative - Reported* Type Description Date [...] first metatarsal 11-16-18 Hospitalization History see above [facility] Other Hisrlcy general Narrative - Reported* Type Description Date [...] Foot Surgery 10/27/2021 Hospitalization History see above [facility] Other History general Narrative - Reported* Type [...] Foot Surgery 10/27/2021 Hospitalization History see above [facility] Other Summary Purpose Family History No Family [...] up, Type 2 NIDDM f/u with [employer] SUPERVISOR BRINE, ANTISQUEAK FILLER-C, BC-ADMlab resultsDM 6 month follow up, Type 2 NIDDM f/u with [employer] SUPERVISOR BRINE, ANTISQUEAK FILLER-C, BC-ADMDM dieticianDM 3 month F/U, Type 2 NIDDM f/u with [employer] SUPERVISOR BRINE, ANTISQUEAK FILLER- C, BC-ADM2nd DM visitDM 3rd visit (1st of the year)DM 3 month follow up, Type 2 NIDDM f/u with [employer] SUPERVISOR BRINE, ANTISQUEAK FILLER-C, BC-ADMWMN initialcgm DownloadNo InformationWMN F/URD WM f/uDM 3 month follow up, Type 2 NIDDM f/u with [employer] SUPERVISOR BRINE, ANTISQUEAK FILLER-C, BC-ADM2 month Follow uporder for baylee 3 reader/sensorsInsulin pen trainingTKM Insulin pen questionsReferred by Dr. Everett Miner for stasis ulcer right legDM 3 month follow up, Type 2 IDDM f/u with [employer] SUPERVISOR BRINE, ANTISQUEAK FILLER-C, BC-ADMlab resultlab result (unrecognized sect ion and content) No Status Records FoundNo Status Records FoundNo Status Records FoundNo Status Records FoundNo Status Records Found INFORMATION SOURCE (unrecogn ized section and content) DATE CREATED AUTHOR 02/20/[address] [facility] DATE CREATED AUTHOR AUTHOR'S ORGANIZ ATION 07/03/2023 [facility] DATE CREATED AUTHOR AUTHOR'S ORGANIZ ATION 10/18/2023 [facility] DATE CREATED AUTHOR AUTHOR'S ORGANIZ ATION 11/15/2023 [facility] DATE CREATED AUTHOR AUTHOR'S ORGANIZ ATION 11/22/2023 [facility] Care Teams (unrecognized sec tion and content) [...] BE BASED ON THE PRIMARY CLINICAL RECORDS. [employer] provides no warranty or guarantee of the accuracy or completeness of information in this document.
--- NOTE | 2023-12-07 11:51 | PM.CN ---
Consult Note: HPI Data of Consult Patient: known to practice within the last 3 years Consult date: 10/16/23 Requesting Physician: Anastasia Donato NP Primary Care Provider: HAIDER HICKMAN Consult Narrative Reason for consult: Right foot pain Narrative: 73yom who presents for assessment. Continues to have significant pain into right foot. EMG shows severe axonal loss, polyneuropathy. Has not had relief with gabapentin or various injections and blocks. Denies adverse medication side effects. The patient presents today for evaluation of Spinal Cord Stimulator trial.? The patient has completed the prescribed anti-biotic course.? Patient denies any fevers, chills, or night sweats.? The patient states that during the trial pain was not decreased by 80 or more%.?Patient reports he had one good day but overall his pain continued to be moderate to severe similar to baseline. cc:: CC: Anastasia Donato NP Review of Systems ROS Status of ROS 10 or more systems reviewed and unremarkable except as noted in history and below [facility] Medical History H/O nephrolithotomy with removal of calculi ?Z98.890 - Other specified postprocedural states (ICD-10) ?Z87.442 - Personal history of urinary calculi (ICD-10) Osteoarthritis ?M19.90 - Unspecified osteoarthritis, unspecified site (ICD-10) Amputation of toe ?S98.139A - Complete traumatic amputation of one unspecified lesser toe, initial encounter (ICD-10) H/O renal calculi ?Z87.442 - Personal history of urinary calculi (ICD-10) Obstructive sleep apnea on CPAP ?G47.33 - Obstructive sleep apnea (adult) (pediatric) (ICD-10) Neck pain ?M54.2 - Cervicalgia (ICD-10) Low back pain ?M54.50 - Low back pain, unspecified (ICD-10) Obesity ?E66.9 - Obesity, unspecified (ICD-10) Diabetes ?E11.9 - Type 2 diabetes mellitus without complications (ICD-10) Enlarged prostate ?N40.0 - Benign prostatic hyperplasia without lower urinary tract symptoms (ICD-10) Hypertension ?I10 - Essential (primary) hypertension (ICD-10) Surgical History H/O heart artery stent ?Z95.5 - Presence of coronary angioplasty implant and graft (ICD-10) Meds Home Medications and Allergies Home Medications Medication Instructions Recorded Confirmed Type acarbose 50 mg tablet 50 mg PO TID 05/24/23 12/04/23 History aspirin 81 mg tablet,delayed 81 mg PO DAILY 05/24/23 12/04/23 History release (Adult Aspirin Regimen) bupropion HCl 150 mg tablet,12 hr 150 mg PO DAILY 05/24/23 12/04/23 History sustained-release losartan 50 mg tablet 75 mg PO DAILY 05/24/23 12/04/23 History metoprolol tartrate 50 mg tablet 50 mg PO BID 05/24/23 12/04/23 History (Lopressor) nitroglycerin 0.4 mg sublingual 0.4 mg sublingual Q5M 05/24/23 12/04/23 History tablet pioglitazone 30 mg tablet 60 mg PO DAILY 05/24/23 12/04/23 History simvastatin 40 mg tablet 40 mg PO DAILY 05/24/23 12/04/23 History sitagliptin phosphate 50 mg tablet 50 mg PO DAILY 05/24/23 12/04/23 History (Januvia) sodium bicarbonate 650 mg tablet 650 mg PO TID PRN stomach upset 05/24/23 12/04/23 History tizanidine 4 mg tablet 4 mg PO DAILY PRN muscle spasticity 05/24/23 12/04/23 History venlafaxine 37.5 mg 37.5 mg PO BID 05/24/23 12/04/23 History capsule,extended release 24 hr Allergies Allergy/AdvReac Type Severity Reaction Status Date / Time cefuroxime Allergy Verified 12/04/23 08:12 celecoxib [From Celebrex] Allergy Verified 12/04/23 08:12 diflunisal [From Dolobid] Allergy Verified 12/04/23 08:12 dulaglutide [From Trulicity] Allergy Verified 12/04/23 08:12 liraglutide [From Victoza] Allergy Verified 12/04/23 08:12 metformin Allergy Verified 12/04/23 08:12 naproxen [From Naprosyn] Allergy Verified 12/04/23 08:12 NSAIDS (Non-Steroidal Allergy Verified 12/04/23 08:12 Anti-Inflamma rofecoxib [From Vioxx] Allergy Verified 12/04/23 08:12 sulindac [From Clinoril] Allergy Verified 12/04/23 08:12 axetil Allergy Uncoded 12/04/23 08:12 Exam Narrative Exam Narrative: Psych-alert and oriented x 3. Attentive and appropriate, constitutionally normal, displays normal mood and affect per situation.? There are no obvious deficits in memory, reasoning, or intellect.? Skin-no obvious rashes, bruising, erythema noted to the patient's area of pain. Extremities- extremities are warm with minimal edema and palpable pulses. Lumbar-no significant tenderness to palpation noted in the lumbar spine and paraspinal musculature.? Pain is elicited with extension, and lateral rotation of the lumbar spine. Range of motion is slightly diminished with these motions due to pain. Coordination remains intact.? Gait remains non-antalgic. Constitutional Documenting provider has reviewed patient's vital signs: yes Common normals: no apparent distress, oriented x3, healthy appearing, alert and well nourished General appearance: cooperative HENMT Common normals: normocephalic, hearing grossly normal bilaterally and moist oral mucous membranes Head and scalp: normocephalic Eye Common normals: PERRL Pupil: PERRL Neck & C-Spine Common normals: full ROM General: normal visual inspection Chest Common normals: inspection of chest normal Respiratory Common normals: normal respiratory effort, no retractions and no use of accessory muscles Neuro Common normals: oriented x3, CN's II-XII intact bilaterally, moves all extremities, no focal motor deficits, no sensory deficits noted and deep tendon reflexes 2+ bilaterally Sensorium/orientation: alert Motor exam: strength 5/5 throughout and no movement abnormalities noted Psych Common normals: mental status grossly normal, thought process normal, cooperative, affect normal, speech normal and activity/motor behavior normal Speech: normal speech Thought process: normal thought process Results Additional Findings Additional findings: I have checked an OARRS report on this patient today and there are no aberrancies noted in the prescribing history.?? A drug screen was completed and reviewed within the last year, and if there has not been a drug screen completed we ordered one today to monitor higher risk, state monitored pain medication use. As part of providing excellent, safe, comprehensive care, the following was completed at our patient's visit: 1. A medication reconciliation and review to ensure accurate knowledge of current/active medications, including asking our patients to inform us about any [id number] medications or herbal remedies/nutritional supplements/alternative remedies. 2. A review to specifically ensure our patients have had annual screening for: elevated body mass index (BMI), tobacco use, screening for depression, and screening for unhealthy alcohol use. When screening is concerning, patients are provided with education and the specific recommendation to discuss the concerning health issue and treatment options with their primary care provider. Assessment and Plan Assessment and Plan (1) Pain, foot, right, chronic: (2) Chronic painful diabetic neuropathy: (3) Lumbar spondylosis: Plan The dressings were removed.? Sutures were released.? The leads were removed without difficulty.? The insertion sites are clean, dry, and non-erythematous.? There is no Tenderness to palpation.? increase tizanidine 2-4mg TID PRN will not proceed with spinal cord stimulator as patient had less than 80% improvement in pain and functional ability.
== END 2023-12-07 11:13 | disposition home or self-care (01) ==
LOC: PM 11:12
PROVIDERS: PCP Family Medicine; Visit Provider Nurse Practitioner
DX: M79.671 Pain in right foot (principal); E11.40 Type 2 diabetes mellitus with diabetic neuropathy, unspecified; M47.816 Spondylosis without myelopathy or radiculopathy, lumbar region
CPT/HCPCS: 99024

== ENCOUNTER 2024-01-03 10:20 | Outpatient (RCR) | payer MEDICARE, OTHER, SELFPAY | END 2024-02-16 16:30 | disposition home or self-care (01) | LOC: PT 10:20 | PROVIDERS: PCP Family Medicine; Visit Provider Family Medicine | DX: M25.511 Pain in right shoulder (principal) | CPT/HCPCS: 97010; 97110; 97112; 97162; G0283 ==

== ENCOUNTER 2024-01-03 13:57 | Outpatient (OUT) | payer MEDICARE, OTHER, SELFPAY ==
--- NOTE | 2024-01-03 14:07 | PM.CN ---
Consult Note: HPI Data of Consult Patient: known to practice within the last 3 years Consult date: 10/16/23 Requesting Physician: Anastasia Donato NP Primary Care Provider: HAIDER HICKMAN Consult Narrative Reason for consult: Right foot pain Narrative: 73yom who presents for assessment. Continues to have significant pain into right foot. EMG shows severe axonal loss, polyneuropathy. Has not had relief with gabapentin or various injections and blocks. Denies adverse medication side effects. Pain 8-9/10 in right foot, most significant in right 3rd toe area. Patient reports sharp throbbing pain increased with activity and random onset. Patient finds benefit to tizanidine but only takes 4mg HS which helps for 4-5 hours. cc:: CC: Anastasia Donato NP Review of Systems ROS Status of ROS 10 or more systems reviewed and unremarkable except as noted in history and below [facility] Medical History H/O nephrolithotomy with removal of calculi ?Z98.890 - Other specified postprocedural states (ICD-10) ?Z87.442 - Personal history of urinary calculi (ICD-10) Osteoarthritis ?M19.90 - Unspecified osteoarthritis, unspecified site (ICD-10) Amputation of toe ?S98.139A - Complete traumatic amputation of one unspecified lesser toe, initial encounter (ICD-10) H/O renal calculi ?Z87.442 - Personal history of urinary calculi (ICD-10) Obstructive sleep apnea on CPAP ?G47.33 - Obstructive sleep apnea (adult) (pediatric) (ICD-10) Neck pain ?M54.2 - Cervicalgia (ICD-10) Low back pain ?M54.50 - Low back pain, unspecified (ICD-10) Obesity ?E66.9 - Obesity, unspecified (ICD-10) Diabetes ?E11.9 - Type 2 diabetes mellitus without complications (ICD-10) Enlarged prostate ?N40.0 - Benign prostatic hyperplasia without lower urinary tract symptoms (ICD-10) Hypertension ?I10 - Essential (primary) hypertension (ICD-10) Surgical History H/O heart artery stent ?Z95.5 - Presence of coronary angioplasty implant and graft (ICD-10) Meds Home Medications and Allergies Home Medications ?Medication ?Instructions ?Recorded ?Confirmed ?Type acarbose 50 mg tablet 50 mg PO TID 05/24/23 12/04/23 History aspirin 81 mg tablet,delayed 81 mg PO DAILY 05/24/23 12/04/23 History release (Adult Aspirin Regimen) bupropion HCl 150 mg tablet,12 hr 150 mg PO DAILY 05/24/23 12/04/23 History sustained-release losartan 50 mg tablet 75 mg PO DAILY 05/24/23 12/04/23 History metoprolol tartrate 50 mg tablet 50 mg PO BID 05/24/23 12/04/23 History (Lopressor) nitroglycerin 0.4 mg sublingual 0.4 mg sublingual Q5M 05/24/23 12/04/23 History tablet pioglitazone 30 mg tablet 60 mg PO DAILY 05/24/23 12/04/23 History simvastatin 40 mg tablet 40 mg PO DAILY 05/24/23 12/04/23 History sitagliptin phosphate 50 mg tablet 50 mg PO DAILY 05/24/23 12/04/23 History (Januvia) sodium bicarbonate 650 mg tablet 650 mg PO TID PRN stomach upset 05/24/23 12/04/23 History tizanidine 4 mg tablet 4 mg PO DAILY PRN muscle spasticity 05/24/23 12/04/23 History venlafaxine 37.5 mg 37.5 mg PO BID 05/24/23 12/04/23 History capsule,extended release 24 hr Allergies Allergy/AdvReac Type Severity Reaction Status Date / Time cefuroxime Allergy Verified 12/04/23 08:12 celecoxib [From Celebrex] Allergy Verified 12/04/23 08:12 diflunisal [From Dolobid] Allergy Verified 12/04/23 08:12 dulaglutide [From Trulicity] Allergy Verified 12/04/23 08:12 liraglutide [From Victoza] Allergy Verified 12/04/23 08:12 metformin Allergy Verified 12/04/23 08:12 naproxen [From Naprosyn] Allergy Verified 12/04/23 08:12 NSAIDS (Non-Steroidal Allergy Verified 12/04/23 08:12 Anti-Inflamma rofecoxib [From Vioxx] Allergy Verified 12/04/23 08:12 sulindac [From Clinoril] Allergy Verified 12/04/23 08:12 axetil Allergy Uncoded 12/04/23 08:12 Exam Narrative Exam Narrative: Psych-alert and oriented x 3. Attentive and appropriate, constitutionally normal, displays normal mood and affect per situation.? There are no obvious deficits in memory, reasoning, or intellect.? Skin-no obvious rashes, bruising, erythema noted to the patient's area of pain. Extremities- extremities are warm with minimal edema and palpable pulses. Lumbar-no significant tenderness to palpation noted in the lumbar spine and paraspinal musculature.? Pain is elicited with extension, and lateral rotation of the lumbar spine. Range of motion is slightly diminished with these motions due to pain. Coordination remains intact.? Gait remains non-antalgic. Constitutional Documenting provider has reviewed patient's vital signs: yes Common normals: no apparent distress, oriented x3, healthy appearing, alert and well nourished General appearance: cooperative HENMT Common normals: normocephalic, hearing grossly normal bilaterally and moist oral mucous membranes Head and scalp: normocephalic Eye Common normals: PERRL Pupil: PERRL Neck & C-Spine Common normals: full ROM General: normal visual inspection Chest Common normals: inspection of chest normal Respiratory Common normals: normal respiratory effort, no retractions and no use of accessory muscles Extremity Other: no edema discoloration to right foot, pain and decreased sensation noted Neuro Common normals: oriented x3, CN's II-XII intact bilaterally, moves all extremities, no focal motor deficits, no sensory deficits noted and deep tendon reflexes 2+ bilaterally Sensorium/orientation: alert Motor exam: strength 5/5 throughout and no movement abnormalities noted Psych Common normals: mental status grossly normal, thought process normal, cooperative, affect normal, speech normal and activity/motor behavior normal Speech: normal speech Thought process: normal thought process Results Additional Findings Additional findings: If on a controlled substance or opioids, I have checked an [place] report on this patient and there are no aberrancies noted in the prescribing history.??If on a controlled substance or opioid a drug screen was completed and reviewed within the last year, and if there has not been a drug screen completed we ordered one today to monitor higher risk, state monitored pain medication use. As part of providing excellent, safe, comprehensive care, the following was completed at our patient's visit: 1. A medication reconciliation and review to ensure accurate knowledge of current/active medications, including asking our patients to inform us about any [id number] medications or herbal remedies/nutritional supplements/alternative remedies. 2. A review to specifically ensure our patients have had annual screening for screening for depression, screening for tobacco use, and screening for unhealthy alcohol use. For concerning screenings had a discussion with the patient, provided patient education, and recommended follow-up with primary care provider when appropriate. If patient noted with a risk of falling, they received education on strength, gait, and balance training to prevent future risk of falling. Assessment and Plan Assessment and Plan (1) Pain, foot, right, chronic: (2) Chronic painful diabetic neuropathy: (3) Lumbar spondylosis: Plan patient finds benefit to tizanidine when he takes it, helps for 4-5 hours. Patient encouraged to utilize more frequently, only utilizes HS at this time. Can take tizanidine 2-8mg TID PRN patient would like to do another spinal cord stimulator trial at alternative levels, does not feel the initial trial covered any area below his ankle, will review with Dr Mac
== END 2024-01-03 13:58 | disposition home or self-care (01) ==
LOC: PM 13:57
PROVIDERS: PCP Family Medicine; Visit Provider Nurse Practitioner
DX: M79.671 Pain in right foot (principal); E11.40 Type 2 diabetes mellitus with diabetic neuropathy, unspecified; M47.816 Spondylosis without myelopathy or radiculopathy, lumbar region
CPT/HCPCS: G0463

== ENCOUNTER 2024-05-24 23:04 | Emergency (ER) | payer MEDICARE, OTHER, SELFPAY ==
[2024-05-24 23:13] VITALS: BP 162/76; PULSE 65; TEMP 37.2; O2SAT 96; BMI 42.3
--- OUTSIDE RECORDS SUMMARY | 2024-05-24 23:14 | XMS_ITS | CCD ---
Author Organization [facility] CliniSydc Care Team Providers Care Flag Signalman Name Role Phone Morgan Kunz Unavailable Aldo Middleton Unavailable Carito West Unavailable Terry Kelley Unavailable DR TERRY KELLEY Consulting Unavailable JOHNSON ., DR SCARLET [place] [facility] Unavailable RIGOBERTO, DR STEWART Attending Unavailable RIGOBERTO, DR STEWART Admitting Unavailable SU, DR MORGAN Miranda Consulting [...] JOHNSON ., DR SCARLET [place] Admitting Unavailable AIDAN, DR ARACELI Treadwell Consulting Unavailable JOHNSON ., DR SCARLET [place] [facility] Unavailable AIDAN, DR ARACELI Treadwell Attending Unavailable AIDAN, DR ARACELI Treadwell Admitting Unavailable SU, DR MORGAN Miranda Consulting Unavailable ANDREW, DR BRITTNY Hemphill Consulting [...] MARY JOHNSON Attending Unavailable Eligio Soni Unavailable [phone] MD Daniel Everett Attending Provider [phone] MD Scarlet Johnson Primary Care Provider [phone] MD Eligio Soni Attending Provider MD Scarlet Johnson Primary Care Provider MD Daniel Everett Attending Provider Eligio Soni Admitting UnavailEligio Patel Attending UnavailScarlet Valerio Primary Care Unavailable Daniel Everett Admitting Unavailable Daniel Everett Attending Unavailable Scarlet Johnson Primary Care Unavailable Terry Kelley Attending Unavailable Scarlet Johnson Primary Care Unavailable Terry Kelley Admitting Unavailable Bubba SCHUSTER, Andrius Louis Attending Unavailable Gidelfin SCHUSTER, Andrius Vlluvia Attending Unavailable Gidelfin SCHUSTER, Andrius Vytsandy Attending Unavailable Bubba SCHUSTER, Andrius Vytsandy Attending Unavailable Bubba SCHUSTER, Andrius Vytautas Attending Unavailable Gideflin SCHUSTER, Andrius Vytautmariann Attending Unavailable Gidelfin SCHUSTER, Andrius Unavailable [phone] Haider Hickman. Attending Unavailable Haider Hickman Admitting Unavailable Haider Hickman MD Primary Care Provider [phone] HERBERTH ARAUJO Referring Unavailable CHIQUI ROBLES Attending Unavailable HAIDER HICKMAN Primary Care Unavailable CHIQUI ROBLES Referring Unavailable MORGAN TRINIDAD Attending Unavailable HAIDER HICKMAN Primary Care Unavailable FRANCOISE SINGLETARY Attending Unavailable MEKHERBERTH MEYERS Attending Unavailable MEKDAMIÁNL, HERBERTH A Attending Unavailable SENTHILLHERBERTH A Admitting Unavailable BROWN, ANDREA A Attending Unavailable BROWN, ANDREA A Attending Unavailable APLING, MIHIR B Attending Unavailable APLING, MIHIR B Referring Unavailable MACY MCPHERSON Attending Unavailable JEFF, ANDREA Nur Attending Unavailable JEFF, ANDREA Nur Attending Unavailable MD Haider Hickman Attending Unavailable Kristofer, MD Haider Bee Attending Unavailable MD Haider Hickman Attending Unavailable MD Haider Hickman Admitting Unavailable Kristofer, MD Haider Bee Attending Unavailable MD Haider Hickman Admitting Unavailable MD Haider Hickman Attending Unavailable Kaleb Mallory Attending Unavailable MD Haider Hickman Referring Unavailable Kaleb Mallory Attending Unavailable COOK, Araceli P Referring Unavailable COOK, Araceli P Admitting Unavailable COOK, Araceli P Attending Unavailable COOK, Araceli P Referring Unavailable COOK, Araceli P Admitting Unavailable COOK, Araceli P Attending Unavailable COOK, Araceli P Referring Unavailable COOK, Araceli P Admitting Unavailable COOK, Araceli P Attending Unavailable COOK, Araceli P Attending Unavailable COOK, Araceli P Attending Unavailable COOK, Araceli P Attending Unavailable MD Haider Hickman Attending Unavailable MD Haider Hickman Attending Unavailable MD Haider Hickman Attending Unavailable MD Haider Hickman Attending Unavailable Haider Hickman Attending Unavailable Haider Hickman Referring Unavailable Haider Hickman Attending Unavailable Haider Hickman Attending Unavailable DAVID ACOSTA Attending Unavailable Allergies Allergy Classification Reported Allergen(s) Allergy Type Date of Onset Reaction(s) Facility (20 sources) Cefuroxime; Translations: [CEFUROXIME] Drug Allergy 06-09-20 Unknown [facility] Repository (20 sources) celecoxib; Translations: [CELECOXIB] Drug Allergy 06-09-20 Unknown [facility] Repository (20 sources) Diflunisal; Translations: [DIFLUNISAL] Drug Allergy 06-09-20 21 Unknown [facility]ository (20 sources) dulaglutide Drug Allergy 09-11-20 23 Unknown, g/i [facility] (20 sources) Ibuprofen Drug Allergy Unknown [facility] Other (20 sources) liraglutide; Translations: [LIRAGLUTIDE] Drug Allergy 11-25-19 23 stomach upset [facility] Repository (20 sources) metFORMIN; Translations: [METFORMIN] Drug Allergy 06-09-20 21 stomach upset [facility] Repository (20 sources) Naproxen; Translations: [NAPROXEN] Drug Allergy 06-09-20 21 Unknown [facility]ository (20 sources) Sulindac; Translations: [Clinoril] Drug Allergy 07-10-20 15 Unknown [facility] Repository (1 source) Cefuroxime Drug Allergy 07-13-20 16 [facility] Repository (3 sources) celecoxib; Translations: [CeleBREX] Drug Allergy 07-10-20 15 [facility] Rep[facility] (3 sources) liraglutide; Translations: [Victoza] Drug Allergy [facility] Rep[facility] (1 source) metFORMIN Drug Allergy 06-15-20 17 [facility] Repository (3 sources) Naproxen; Translations: [Naprosyn] Drug Allergy 07-10-20 15 [facility] Rep[facility] (3 sources) NSAIDs; Translations: [NSAIDS (NON-STEROIDAL ANTI-INFLAMMATORY DRUG)] Drug allergy (disorder) 07-10-20 15 [facility] Repository (3 sources) Povidone-Iodine; Translations: [Dolobid] Drug Allergy 07-10-20 15 [facility] Repository (1 source) rofecoxib; Translations: [ROFECOXIB] Drug Allergy 06-09-20 21 [facility] Repository (3 sources) Sulindac; Translations: [SULINDAC] Drug Allergy 06-09-20 [facility] Rep[facility] (4 sources) Cephalosporins (Antibiotic); Translations: [Cephalosporins] Propensity to adverse reactions 05-29-20 18 Unknown Reaction [facility] (2 sources) Ibuprofen; Translations: [ibuprofen] Drug Allergy 09-11-20 [facility] (1 source) Cefuroxime Drug Allergy 09-11-20 23 [facility] (1 source) celecoxib Drug Allergy 09-11-20 [facility] (1 source) Diflunisal Drug Allergy 09-11-20 [facility] (1 source) dulaglutide Drug Allergy 09-11-20 [facility] (1 source) liraglutide Drug Allergy 09-11-20 [facility] (1 source) metFORMIN Drug Allergy 09-11-20 [facility] (1 source) Naproxen Drug Allergy 09-11-20 [facility] Repository (8 sources) Non-steroidal anti-inflammatory agent Drug Intolerance 02-05-20 GI Upset [facility] (2 sources) Cefuroxime; Translations: [Cefuroxime Axetil] Drug Allergy [facility] Repository (2 sources) dulaglutide; Translations: [Trulicity] Drug Allergy [facility] Repository (2 sources) Niacin; Translations: [niacin] Drug Allergy [facility] Repository (2 sources) NSAIDs; Translations: [NSAIDs] Propensity to adverse reactions (disorder) [facility] Repository (2 sources) rofecoxib; Translations: [Vioxx] Drug Allergy [facility] Repository Medications Current Medications Medication Drug Class(es) Dates Sig (Normalized) Sig (Original) acarbose 50 mg oral tablet (20 sources) alpha-Glucosidase Inhibitor Start: 02-05-2024 acarbose (PRECOSE) 50 mg tablet Start: 11-07-2022 take 1 tablet by jatin th three times daily before mealtime Acarbose 50 [...] HOURS June 07, 2018 aspirin 81 mg delayed release oral tablet (20 sources) Platelet Aggregation Inhibitor, Nonsteroidal Anti-inflammator y Drug take 1 tablet by mouth once daily aspirin, enteric coated (ASPIRIN, ENTERIC COATED) 81 mg EC tablet Take 81 mg by mouth once daily. 0 Active take 1 tablet by jatin th every twenty-four hours Aspirin 81 MG 1 Tablet Orally Daily Active 24 hr buPROPion hydrochloride 300 mg extended release oral tablet (20 sources) Aminoketone Start: 02-05-2024 buPROPion XL ( WELLBUTRIN XL) 300 mg 24 hr tablet Start: 05-29-2018 Bupropion Hcl Active May 28, 2018 11:00pm Calcium + D3 600-200 MG-UNIT (20 sources) take 1 tablet by mouth once daily Calcium + D3 600-200 MG-UNIT 1 tablet with a meal Orally Once a day Active calcium carbonate 1500 mg / cholecalciferol 200 unt oral tablet (8 sources) Vitamin D calcium carbonat e 600 mg-cholecalciferol 200 units 600 mg-5 mcg (200 unit) tab Calcium 600 0 Active canagliflozin 100 mg oral tablet (2 sources) Sodium-Glucose Cotransporter 2 Inhibitor Start: 018 Canagliflozin (Invokana) 100 mg tablet Active TABLET May 28, 2018 11:00pm ciprofloxacin 500 mg oral tablet (2 sources) Quinolone Antimicrobial Start: 018 take 1 tablet by mouth every two hours Ciprofloxacin Hcl (Cipro) 500 mg tablet Active 500 MG PO Q12H June 06, 2018 11:00pm administer dose at least 2 hrs before/6 hrs after dairy products, calcium, zinc, and/or iron-containing products Docosahexaenoate (8 sources) take 1200 mg by mouth twice daily DOCOSAHEXAENOIC ACID ORAL Fish Oil 1200mg BID 0 Active fish oil/borage/flax/om3,6,9 1 (FISH,BORA,FLAX OILS-OM3,6,9NO1 ORAL) (8 sources) fish oil/borage/flax/om3,6 ,9 1 (FISH,BORA,FLAX OILS-OM3,6,9NO1 ORAL) Take by mouth every 24 hours. 0 Active Fish Oils (20 sources) take 1 capsule by mouth once daily Fish Oil 1200 MG 1 capsule Orally daily Active gabapentin 600 mg oral tablet (3 sources) Anti-epileptic Agent Gabapentin 600 MG Oral for 30 Days Active 3 ml insulin aspart, human 100 unt/ml pen injector (5 sources) Insulin Analog NovoLOG FlexPen 100 UNIT/ML 1:50 corrective scale ac tid Subcutaneous As Directed Active 3 ml insulin lispro 100 unt/ml pen injector (1 source) Insulin Analog Start: 023 HumaLOG KwikPen 100 UNIT/ML 1:50 corrective scale ac tid Subcutaneous as directed for 30 days (expect up to 20 units/day) May, Active losartan potassium 50 mg oral tablet (20 sources) Angiotensin 2 Receptor Nathaly Start: 024 take 1.5 tablets by mouth once losartan (COZAAR) 50 mg tablet Take 1.5 tablets by mouth every afternoon. 0 02/01/2024 Active take 1.5 mg by mouth once daily Losartan Potassium 50 MG 1.5 mg Orally Once a day Active take 1 tablet by jatin th every twenty-four hours Losartan Potassium 50 MG 1 tablet Orally Once a day Active Losartan Potassi um Active memantine hydrochloride 5 mg oral tablet (4 sources) O-evcbja-F-aspartate Receptor Antagonist Start: 04-24-2024 take 1 tablet by mouth once daily memantine (NAMENDA) 5 mg tablet Take 1 tablet by mouth once daily. 30 tablet 3 04/24/2024 Active 24 hr metoprolol succinate 50 mg extended release oral tablet (20 sources) beta-Adrenergic Nathaly Start: 12-26-2023 take 1 tablet by mouth every twelve hours metoprolol succinate ER (TOPROL XL) 50 mg 24 hr tablet Take 1 tablet by mouth every 12 hours. 0 12/26/2023 Active Start: 05-29-2018 Metoprolol Tar trate Active TABLET May 28, 2018 11:00pm take 1 tablet by jatin th every twenty-four hours Metoprolol Tartrate 100 MG 1 tablet with food Orally Daily Active take 1 tablet by jatin th every twenty-four hours Metoprolol Tartrate 50 MG 1 Tablet Orally Daily Active Nitro Sublingual 0.4 (20 sources) Nitro Sublingual 0.4 Sublingual As Directed Active nitroglycerin 0.4 mg sublingual tablet (8 sources) Nitrate Vasodilator Start: nitroglycerin sublingual (NITROQUICK) 0.4 mg SL tablet [place] 1-Cea-Lbd-Fish Oil (Fish Oil) 1,000 mg (120 mg-180 mg) Capsule (2 sources) Start: 018 [place] 4-Oef-Tmf-Fish Oil (Fish Oil) 1,000 mg (120 mg-180 mg) Capsule Active May 28, 2018 11:00pm oxybutynin chloride 5 mg oral tablet (2 sources) Cholinergic Muscarinic Antagonist Start: 018 take 5 mg by mouth twice daily Oxybutynin Chloride Active 5 MG PO Twice daily 60 June 06, 2018 11:00pm pioglitazone 30 mg oral tablet (20 sources) Peroxisome Proliferator Receptor alpha Agonist, Peroxisome Proliferator Receptor gamma Agonist, Thiazolidinedione Start: 024 take 1 tablet by mouth once pioglitazone (ACTOS) 30 mg tablet Take 1 tablet by mouth every afternoon. 0 12/03/2023 Active take 1 tablet by jatin th every twenty-four hours Pioglitazone HCl 30 MG 1 tablet Orally Once a day Active take 2 tablets by mo uth every twenty-four hours Pioglitazone HCl 15 MG [...] oral tablet (20 sources) HMG-CoA Reductase Inhibitor Start: 01-01-2024 take 1 tablet by mouth once daily in the evening simvastatin (ZOCOR) 40 mg tablet Take 40 mg by mouth every evening. 0 01/01/2024 Active take 1 tablet by jatin th every twenty-four hours Simvastatin 40 MG 1 tablet in the evenin g Orally Once a day for 30 day(s) Active SITagliptin 100 mg oral tablet (20 sources) Dipeptidyl Peptidase 4 Inhibitor Start: 01-23-2024 take 1 tablet by mouth once JANUVIA 100 mg tablet Take 1 tablet by mouth every afternoon. 0 01/23/2024 Active Start: 05-29-2018 Sitagliptin Ph osphate (Januvia) 25 mg Tablet Active TABLET May 28, 2018 11:00pm take 1 tablet by jatin th every twenty-four hours Januvia 100 MG 1 tablet Orally Once a day Active take 0.5 tablet by m outh once daily Januvia 100 MG 1/2 tablet Orally Once a day Active sodium bicarb 650 mg (20 sources) take 2 tablets by mouth three times daily sodium bicarb 650 mg 2 tablets orally tid Active sodium bicarbonate 650 mg oral tablet (10 sources) Start: 01-28-2024 take 2 tablets by mouth three times daily sodium bicarbonate 650 mg tablet TAKE 2 TABLETS BY MOUTH 3 TIMES A DAY FOR 90 DAYS 0 01/28/2024 Active Start: 05-29-2018 Sodium Bicarbo farhat Active TABLET May 28, 2018 11:00pm tiZANidine 4 mg oral tablet (20 sources) Central alpha-2 Adrenergic Agonist Start: 01-22-2024 take 1 tablet by mouth every eight hours as needed tiZANidine (ZANAFLEX) 4 mg tablet Take 4 mg by mouth three times a day as needed. 0 01/22/2024 Active take 1 tablet by mouth once zheng y tiZANidine HCl 4 MG 1 tab Orally daily Active tiZANidine HCl A ctive traMADol hydrochloride 50 mg oral tablet (2 sources) Opioid Agonist Start: 05-29-2018 Tramadol Active TABLET May 28, 2018 11:00pm venlafaxine 37.5 mg oral tablet (20 sources) Serotonin and Norepinephrine Reuptake Inhibitor Start: 12-03-2023 take 1 tablet by mouth every twelve hours venlafaxine (EFFEXOR) 37.5 mg tablet Take 1 tablet by mouth every 12 hours. 0 12/03/2023 Active Start: 05-29-2018 Venlafaxine Ac tive TABLET May 28, 2018 11:00pm Completed/Discontinued Medications [...] Orally once a day Active FreeStyle [place] - (7 sources) FreeStyle [place] - use with baylee sensor SQ daily for 365 days has but not using Not-Taking FreeStyle [place] Sensor Syste m - (7 sources) FreeStyle [place]lee Sensor System - use with baylee reader SQ change every 10 days for 90 days has but not usint Not-Taking Problems Active Problems Problem Classification Problem Date Documented Da te Episodic/Chronic Adjustment disorders (2 sources) Adjustment disorder with depressed mood; Translations: [Adjustment disorder with depressed mood] 04-24-2024 Chronic Administrative/social admission (6 sources) Dietary counseling and surveillance Onset: 10-21-2021 Resolved: 04-21-2022 Episodic Allergic reactions (1 source) Eczema of lower limb; Translations: [Dermatitis, unspecified] 02-29-2024 Episodic Congestive heart failure; nonhypertensive (1 source) Unspecified systolic (congestive) heart failure; Translations: [UNSPECIFIED SYSTOLIC HEART FAILURE] Onset: 11-09-2022 Chronic Coronary atherosclerosis and other heart disease (20 sources) Coronary arteriosclerosis; Translations: [Atherosclerotic heart disease of [place] coronary artery without angina pectoris] Onset: 11-25-2022 [...] (20 sources) Nonalcoholic steatohepatitis; Translations: [Nonalcoholic steatohepatitis (SANTANA)] Onset: 07-21-2021 Resolved: 07-21-2021 Chronic Nutritional deficiencies (20 sources) Vitamin D deficiency; Translations: [Vitamin D deficiency, unspecified] Chronic Other aftercare (1 source) intermediate teacher (current) use of aspirin; Translations: [JAIL CURRENT USE OF ASPIRIN] Onset: 02-20-2023 Episodic Other aftercare (1 source) Other medical terminologist (current) drug therapy; Translations: [OTH FLIGHT READINESS TECHNICIAN CURRENT DRUG THERAPY] Onset: 02-20-2023 Episodic Other aftercare (6 sources) Long-term current use of insulin; Translations: [halfway (current) use of insulin] Episodic Other aftercare (1 source) halfway (current) use of insulin Episodic Other connective tissue disease (3 sources) Pain in unspecified foot Episodic Other connective tissue disease (4 sources) Impingement syndrome of right shoulder; Translations: [IMPINGEMENT SYNDROME RIGHT SHOULDER] Onset: 12-09-2022 Episodic Other connective tissue disease (8 sources) Chronic pain of right foot; Translations: [Pain in right toe(s)] Onset: 04-03-2024 02-05-2024 Episodic Other connective tissue disease (1 source) Pain in right toe(s); Translations: [Chronic toe pain, right foot] Onset: 04-03-2024 Episodic Other diseases of veins and lymphatics (4 sources) Lymphedema, not elsewhere classified; Translations: [LYMPHEDEMA NOT ELSEWHERE CLASSIFIED] Onset: 12-21-2022 Chronic Other liver diseases (20 sources) Steatosis of liver; Translations: [Fatty (change of) liver, not elsewhere classified] Chronic Other nervous system disorders (20 sources) Neuropathy; Translations: [Polyneuropathy, unspecified] Chronic Other nervous system disorders (3 sources) Polyneuropathy, unspecified Chronic Other nervous system disorders (7 sources) Complex regional pain syndrome type II of right lower limb; Translations: [Causalgia of right lower limb] Onset: 04-03-2024 02-29-2024 Chronic Other nervous system disorders (1 source) Causalgia of right lower limb; Translations: [Complex regional pain syndrome type II of right lower limb] Onset: 04-03-2024 Chronic Other nervous system disorders (1 source) Other chronic pain; Translations: [Chronic toe pain, right foot] Onset: 04-03-2024 Chronic Other nutritional; endocrine; and metabolic disorders (20 sources) Obese class II; Translations: [Body mass index (BMI) 38.0-38.9, adult] Chronic Other nutritional; endocrine; and metabolic disorders (20 sources) Body mass index 40+ - severely obese; Translations: [Body mass index (BMI) 40.0-44.9, adult] Chronic Other nutritional; endocrine; and metabolic disorders (14 sources) Body mass index (BMI) 40.0-44.9, adult; [...] nutritional; endocrine; and metabolic disorders (3 sources) Morbid (severe) obesity due to excess calories; Translations: [Morbid (severe) obesity due to excess calories] Onset: 11-25-2022 Chronic Other nutritional; endocrine; and metabolic disorders (11 sources) Severe obesity; Translations: [Morbid (severe) obesity due to excess calories] Onset: 02-05-2024 02-05-2024 Chronic Other nutritional; endocrine; and metabolic disorders [...] Range Facility Family Medicine Office/Clini c Noteon 05-23-2024 Family Medicine Office/Clinic Note Family Medicine Office/Clinic Note Chief Complaint Sore on Leg HPI Staff Dong is a 73 year old male presenting for acute visit. Acute: sore on right leg ( pt is diabetic) Has been getting a sore that moves around on his legs for the past 6-8months. Does have pain. 7.5/10 Bright red in color. Changes color through the day. Skin is open. Does seep clear drainage. Has used abx cream on it, states it just makes the sore look worse. History of Present Illness 73 [address] old patient of Dr. Hickman presents today with his for evaluation of ulcer on his right LE. He reports the area has been there for a couple weeks now but will not heal. He states he called wound care and he has an appointment but not until 03/05/2024 so he decided it to make an appointment here to have it checked. He reports he has had sores like this on other areas of his leg but they have healed up on their own. He denies any injury to the leg. Patient reports he has many tests over the years to check blood flow and that has been fine. He is a diabetic and reports his last HgbA1C was 6.5%. Patient reports he has had previous studies to determine appropriate blood flow and they all came back with normal circulation. Review of Systems PHQ Score Initial Depression Screen Score: 0 SCORE Constitutional: no fever, no chills, no sweats, no weakness Skin: no Jaundice, no rash, moderate lesions, nopetechiae ENMT: no ear pain, no sore throat, no congestion, no hoarseness Respiratory: no shortness of breath, no cough, no orthopnea, no wheezing Cardiovascular: no chest pain, no palpitations, no edema Musculoskeletal: no back pain, no trauma Neurologic: no headache, no dizziness, no numbness, no weakness Psychiatric: no sleeping problems, no irritability, no mood swings/depression. Additional ROS info: Except as noted in the above Review of Systems and in the History of Present Illness all other systems have been reviewed and are negative or noncontributory. Physical Exam Vitals & Measurements T: 36.6 ?C(Oral) HR: 62(Peripheral) RR: 18 BP: 138/84 SpO2: 96% HT: 67 in HT: 169 cm WT: 122 kg WT: 268.4 lb BMI: 42.72 General: alert, no acute distress Skin: warm, dry Head: no trauma, normocephalic Neck: Trachea midline, no adenopathy, no tenderness Eye: normal conjunctiva, sclera clear Cardiovascular: regular rate and rhythm, normal peripheral perfusion Respiratory: Lungs CTA, respirations non labored Gastrointestinal: soft, non distended, no tenderness, no guarding. Extremities: Right posterior calf- 3.0 cm x 1.5 cm ulcer- no drainage noted; right lower leg-reddened,edematous , warm and tender to touch Neurological: oriented x 4, LOC appropriate for age speech normal Psychiatric: cooperative, affect appropriate for age, normal judgement, normal psychiatric thoughts. Assessment/Plan 1. Cellulitis of leg (L03.119: Cellulitis of unspecified part of limb) Reviewed previous diagnostic tests and laboratory testing. Encouraged to keep appointment with Wound clinic Start clindamycin 300 mg one tablet po daily x 10 days Encouraged to leave the [facility]/u with pcp after seen at wound clinic Ordered: clindamycin, 300 mg = 1 cap(s), Oral, BID, X 10 day(s), # 20 cap(s), Refills(s) 0, Pharmacy: [facility]/pharmacy #[id number], 169, cm, 05/22/24 14:52:00 EDT, Height/Length Dosing, 122, kg, 05/22/24 14:52:00 EDT, Weight Dosing 2. BMI 40.0-44.9, adult, (Z68.41: Body mass index [BMI] 40.0-44.9, adult)Body mass index [BMI] 40.0-44.9, adult The standard range for ages 18 and older is >=18.5 and < 25 kg/m2. Your BMI today was above this range, this falls in the overweight to obese category and there are medical benefits to weight loss. We can offer counselling, referral, and/or medical support in addressing this problem. Your BMI and weight management will be followed at subsequent visits. Ordered: clindamycin, 300 mg = 1 cap(s), Oral, BID, X 10 day(s), # 20 cap(s), Refills(s) 0, Pharmacy: [facility]/pharmacy #[id number], 169, cm, 05/22/24 14:52:00 EDT, Height/Length Dosing, 122, kg, 05/22/24 14:52:00 EDT, Weight Dosing 3. Non-smoker (Z78.9: Other specified health status) Encouraged to continue as a non-smoker Ordered: clindamycin, 300 mg = 1 cap(s), Oral, BID, X 10 day(s), # 20 cap(s), Refills(s) 0, Pharmacy: [facility]/pharmacy #[id number], 169, cm, 05/22/24 14:52:00 EDT, Height/Length Dosing, 122, kg, 05/22/24 14:52:00 EDT, Weight Dosing 4. Class 3 severe obesity due to excess calories with body mass index (BMI) of 40.0 to 44.9 in adult (E66.01: Morbid (severe) obesity due to excess calories) The standard range for ages 18 and older is >=18.5 and < 25 kg/m2. Your BMI today was above this range, this falls in the overweight to obese category and there are medical benefits to weight loss. We can offer counselling, referral, and/or medical support in addressing this problem. Your BMI and weight management will be followed at subsequent visits. Ordered: clindamycin, 300 mg = 1 cap(s), Oral, BID (more content not included)... Normal [facility] Comment on above: Result Comment: Elec tronically Signed By: DAVID ACOSTA CNP\.br\Date and Time Signed: 05/23/24 12:59 EDT Ambulatory Visit Summaryon 0 05-22-2024 Ambulatory Visit Summary Ambulatory Visit Summary DONG WHITMORE :1950 Visit Date:05/22/2024 Ambulatory Visit Instructions Your Diagnosis Cellulitis of leg BMI 40.0-44.9, adult, Body mass index [BMI] 40.0-44.9, adult Non-smoker Class 3 severe obesity due to excess calories with body mass index (BMI) of 40.0 to 44.9 in adult Your Care Team Attending Physician - DAVID ACOSTA CNP Primary Care Physician - Haider Hickman MD. This Is Your Medications List [facility] [place] (Eric Prather, 5 years.) acarbose (acarbose 25 mg oral tablet) aspirin (aspirin 81 mg Oral EC Tab) buPROPion (buPROPion 300 mg/24 hours ER Tab) calcium carbonate (calcium (as carbonate) 600 mg oral tablet) clindamycin (clindamycin 300 mg oral cap) insulin aspart (NovoLog) losartan (losartan 50 mg Tab) memantine (memantine 5 mg Tab) metoprolol (metoprolol 50 mg ER Tab) nitroglycerin (nitroglycerin 0.4 mg sublingual Tab) omega-3 polyunsaturated fatty acids (Fish Oil 1200 mg oral capsule) pioglitazone (pioglitazone 30 mg Tab) potassium chloride (Potassium Chloride (Uhe-Scmj-Lco M20) 20 mEq oral tablet, extended release) simvastatin (simvastatin 40 mg Tab) sitagliptin (Januvia 100 mg Tab) sodium bicarbonate (sodium bicarbonate 650 mg Tab) tizanidine (tiZANidine 4 mg Tab) venlafaxine (venlafaxine 37.5 mg Tab) Procedures Performed Percutaneous implantation of neurostimulator electrode array, epidural (04/03/2024), TOE AMPUTATION (11/16/2018), ESWL - Extracorporeal shockwave [...] heart, Colonoscopy, CTR - Carpal tunnel release, ESWL of kidney, Heel spur....., History of placement of stent for coronary artery disease, History of tonsillectomy, Placement of stent in cardiac conduit, Stimulator. Discharge Vitals Temperature (Oral) 36.6 ?C Heart Rate (Peripheral) 62 Respiratory Rate 18 Blood Pressure 138/84 Height 169 cm Height 67 in Weight 122 kg Weight 268.4 lb BMI 42.72 What to do next Scheduled Follow-Up Appointments Monday 8:15 AM EDT With: Levar Freeman DPM Where: [facility] Monday 9:15 AM EDT With: Araceli BERMUDEZ MD Where: [facility] [address], [address] [place] [address]- Monday 3:30 PM EST With: Haider Hickman MD Where: [facility] [address] [address]- Monday 10:30 AM EST With: Araceli BERMUDEZ MD Where: [facility] [place] [address], [address] [place] [address]- 2024 8:00 AM EDT With: Where: [facility] [address] [place] [address]- Medications What How Much When Why Instructions New clindamycin (clindamycin 300 mg oral cap) 1 Capsules By Mouth 2 times a day Cellulitis of leg BMI 40.0-44.9, adult Non-smoker Class 3 severe obesity due to excess calories with body mass index (BMI) of 40.0 to 44.9 in adult Duration: 10 Days Pickup at [facility]/pharmacy #[id number] Unchanged acarbose (acarbose 25 mg oral tablet) 2 Tablets By Mouth 3 times a day Unchanged aspirin (aspirin 81 mg Oral EC Tab) 1 Tablets By Mouth Every day Unchanged buPROPion (buPROPion 300 mg/ 24 hours ER Tab) See instructions TAKE 1 TABLET BY MOUTH EVERY DAY Unchanged calcium carbonate (calcium (as carbonate) 600 mg oral tablet) 1 Tablets By Mouth Every day Unchanged insulin aspart (NovoLog) See instructions SubCutaneous TIDAC Unchanged losartan (losartan 50 mg Tab) See instructions 1.5 tab(s) Oral Daily Unchanged memantine (memantine 5 mg Tab) 1 Tablets By Mouth 2 times a day Unchanged metoprolol (metoprolol 50 mg ER Tab) 1 Tablets By Mouth 2 times a day Unchanged Misc Prescription (Handicap Placard, 5 years.) See instructions Stage 3a chronic kidney disease Type 2 diabetes mellitus with peripheral vascular disease Type 2 diabetes mellitus with stage 3a chronic kidney disease and hypertension Erythema of skin BMI 40.0-44.9, adult Class 3 severe obesity due to excess calories with body mass index (BMI) of 40.0 to 44.9 in adult Nonsmoker Lumbar stenosis Peripheral edema Handicap Placard, 5 years. Unchanged nitroglyce (more content not included)... [facility] Family Medicine Office/Clini c Noteon 05-14-2024 Family Medicine Office/Clinic Note Family Medicine Office/Clinic Note Chief Complaint Subsequent Medicare Wellness History of Present Illness Covid-19, MERS, Ebola Screen *Contact With Person [...] Airborne, Droplet Precautions for MERS/COVID-19 : N/A Debra Bermudez Charanjit Swanson 05/13/2024 9:39 EDT Medicare/Medicaid Summary Systolic Blood Pressure : 138 mmHg Diastolic Blood Pressure : 70 mmHg Blood Pressure Location : Left arm Blood Pressure Position : Sitting Peripheral Pulse Rate : 65 bpm Respiratory Rate : 14 br/min SpO2 : 95 % Debra Bermudez Charanjit Swanson 05/13/2024 10:35 EDT Chief Complaint : Subsequent Medicare Wellness Patient Counseled : Nutrition, Physical activity, Elevated BMI Height/Length Measured : 171 cm(Converted to: 5 ft 7 in, 67.32 in) Weight Measured : 121.65 kg(Converted to: 268 lb 3 Ounces, 268.192 lb) Body Mass Index Measured : 41.6 kg/m2 Height in Inches : 67 in Weight in Pounds : 267.63 lb Pain Present : Yes actual or suspected pain Numeric Rating Pain Scale : 3 Primary Pain Comments : legs and feet Primary Pain Location : Foot Numeric Rating Pain Score : 8 Debra Bermudez Chaarnjit Swanson 05/13/2024 9:39 EDT Hearing and Vision Screening FT FT Whisper Test Comments : admits to hearing deficts -has had an appointment. Hearing aides expensive. Vision Screen Comments : has corrective lens. yearly checks. Has appt [facility] next week. Debra Bermudez Charanjit Swanson 05/13/2024 9:39 EDT Advance Directive FT Advance Directive : Yes Type of Advance Directive : Living will, Medical durable power of real estate attorney Organ Donation Consent : Yes Debra Bermudez Charanjit Swanson 05/13/2024 9:39 EDT Procedures / Surgeries FT - Procedure History (As Of: 05/13/2024 10:37:10 EDT) Procedure Dt/Tm: 12/02/2015 ; Anesthesia Minutes: 0 ; Procedure Name: ulstrasound ; Procedure Minutes: 0 ; Last Reviewed Dt/Tm: 05/13/2024 09:44:11 EDT Procedure Dt/Tm: 12/02/2015 ; Provider: Araceli Bermudez MD; Anesthesia Minutes: 0 ; Procedure Name: Cystoscopy, Right RGP, Right Ureteroscopy with stone basket extraction ; Procedure Minutes: 0 ; Last Reviewed Dt/Tm: 05/13/2024 09:44:11 EDT Procedure Dt/Tm: 06/23/2016 ; Provider: Araceli Bermudez MD; Anesthesia Minutes: 0 ; Procedure Name: ysto, right RGP, right ureteroscopy, laser ablation large distal ureteral calculus, basket extraction, JJ ureteral stent placemen t under fluoroscopic guidance ; Procedure Minutes: 0 ; Last Reviewed Dt/Tm: 05/13/2024 09:44:11 EDT Anesthesia Minutes: 0 ; Procedure Name: Cardiac catheterization, combined right and left heart x2 ; Procedure Minutes: 0 ; Last Reviewed Dt/Tm: 05/13/2024 09:44:11 EDT Location: [facility] ; Anesthesia Minutes: 0 ; Procedure Name: back epidurals procdures x 8 ; Procedure Minutes: 0 ; Last Reviewed Dt/Tm: 05/13/2024 09:44:11 EDT Anesthesia Minutes: 0 ; Procedure Name: CTR - Carpal tunnel release left ; Procedure Minutes: 0 ; Last Reviewed Dt/Tm: 05/13/2024 09:44:11 EDT Anesthesia Minutes: 0 ; Procedure Name: Amputation of toe left ; Procedure Minutes: 0 ; Last Reviewed Dt/Tm: 05/13/2024 09:44:11 EDT Anesthesia Minutes: 0 ; Procedure Name: History of tonsillectomy ; Procedure Minutes: 0 ; Last Reviewed Dt/Tm: 05/13/2024 09:44:11 EDT Anesthesia Minutes: 0 ; Procedure Name: Heel spur ; Procedure Minutes: 0 ; Last Reviewed Dt/Tm: 05/13/2024 09:44:11 EDT Procedure Dt/Tm: 11/16/2018 ; Anesthesia Minutes: 0 ; Procedure Name: TOE AMPUTATION ; Procedure Minutes: 0 ; Last Reviewed Dt/Tm: 05/13/2024 09:44:11 EDT Procedure Dt/Tm: 06/07/2018 ; Anesthesia Minutes: 0 ; Procedure Name: Cysto, Lt retrogrades, Lt stent, Ureteral cath, Lt ESWL ; Procedure Minutes: 0 ; Comments: 06/21/2019 14:34 EDT - Marilynn Zhang MA Cysto, Lt retrogrades, Lt stent, Ureteral cath, Lt ESWL ; Last Reviewed Dt/Tm: 05/13/2024 09:44:11 EDT Procedure Dt/Tm: 03/15/2001 ; Anesthesia Minutes: 0 ; Procedure Name: Cystoscopy ; Procedure Minutes: 0 ; Last Reviewed Dt/Tm: 05/13/2024 09:44:11 EDT Procedure Dt/Tm: 11/15/2007 ; Anesthesia Minutes: 0 ; Procedure Name: TURP - Transurethral resection of prostate ; Procedure Minutes: 0 ; Last Reviewed Dt/Tm: 05/13/2024 09:44:11 EDT Anesthesia Minutes: 0 ; Procedure Name: Placement of stent in cardiac conduit ; Procedure Minutes: 0 ; Comments: 06/21/2019 14:29 EDT - Marilynn Zhang MA x4 ; Last Reviewed Dt/Tm: 05/13/2024 09:44:11 EDT Procedure Dt/Tm: 11/05/2007 ; Anesthesia Minutes: 0 ; Procedure Name: Cystoscopy ; Procedure Minutes: 0 ; Last Reviewed Dt/Tm: 05/13/2024 09:44:11 EDT Procedure Dt/Tm: 01/10/2017 ; Anesthesia Minutes: 0 ; Procedure Name: Cystoscopic removal of ureteric stent ; Procedure Minutes: 0 ; Last Reviewed Dt/Tm: 05/13/2024 09:44:11 (more content not included)... [facility] Comment on above: Result Comment: Elec tronically Signed By: Haider Hickman MD.br\Date and Time Signed: 05/14/24 10:23 EDT\.br\Electronically Co-Signed By: Debra Bermudez.br\Date and Time Co-Signed: 05/13/24 13:04 EDT CNOVon 04-24-2024 CNOV Office Visit (NPRC21 ) DONG WHITMORE ([id number]) 1950 M Date Time Provider Department 04/24/24 9:00 AM CHIQUI ROBLES NPR[facility]21 During your visit today, we recorded the following information about you: Pulse Blood pressure Weight Height 61/minute 122/89 122.5 kg 1.702 m Parish Rios MD 04/24/2024 11:26 AM Signed [facility] [place] April 24, 2024 This is a face to face visit. SUBJECTIVE: Dong is a 73 year-old male with Diabetes type 2 who comes to pain consult with a history of Chronic toe pain in the right foot. Dr. Araujo attempted to place a ganglion root stimulator which was not possible. He refers that the pain is constant. He gets partial relief when walking and worsens when sitting. Has tried different medications including gabapentin, tizanidine, venlafaxine, which help to sleep but do not lessen the pain. Today he comes to discuss further options of care. OBJECTIVE: PHYSICAL EXAM: BP 122/89 (BP Site: Left Arm, BP Position: Sitting, BP Cuff Size: Regular Adult) Pulse 61 Ht 170.2 cm (5' 7.01 ) Wt 122.5 kg (270 lb) SpO2 95% BMI 42.28 kg/m? 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 3rd interphalangeal joint is deviated to the left. Full range of motion in other joints without pain. ASSESSMENT: CRPS Chronic pain in toe - right foot Diabetic neuropathy PLAN: Ketamine infusion therapy Memantine Pain psychology consult MD Travis Camacho Desimir, MD 04/24/2024 11:26 AM Signed [facility] STAFF PHYSICIAN NOTE OF PERSONAL INVOLVEMENT IN CARE IMPRESSION: Complex regional pain syndrome Adjustment Disorder Tried multiple injections, procedures, surgeries. No benefit Tried SCS and recently DRG without success. Discussed ketamine PLAN: Ketamine infusions Consider scrambler therapy Psych psychology Memantine 5mg Psychotherapy Add-on Progress Note Due to medical condition and comorbid psychological and behavioral concerns - psychotherapy was utilized during the visit. [id number] time: 02543 (16-37 mins) actual time spend in psychotherapy 18min minutes Type of therapeutic intervention:Acceptanc e and Commitment Target symptoms: Activity pacing Progress/Session notes:functional restory Interactive Complexity: None I have reviewed the documentation above obtained and documented by the Resident and I have personally performed a face to face assessment of the patient and have personally participated in the doran components of the visit which includes medical decision making. and have reviewed and updated the problem list as appropriate. I have personally performed a face to face assessment of the patient and I have discussed the case and management of the patient's care. I spent a total of 65 minutes on the date of the service which included preparing to see the patient, [id number] patient care, completing clinical documentation, performing a medically appropriate examination, and counseling and educating the patient/family/caregiv er. As noted, the patient's clinical situation is complex and serious with significant comorbidity of pain and functional limitations. This requires higher levels of time, intensity, and expense with longitudinal care and support. STAFF PHYSICIAN:: Chiqui Robles MD DATE of SERVICE: 04/24/2024 Referring Provider: HERBERTH ARAUJO [[id number]] Allergies As of Date: 04/24/2024 Noted Allergy Reaction NSAIDS (NON-STEROIDAL ANTI-INFLAM*02/05/2024 8 - GI Upset Date Reviewed: 04/24/2024 Reviewed by: Dee Hickman OCCA - Fully Assessed Reason for Visit: New Patient [172] Primary Visit Diagnosis:Adjustment disorder with depressed mood [F43.21] Other Visit Diagnoses:Complex regional pain syndrome type II of right lower limb [G57.71] Chronic toe pain, right foot [M79.674, G89.29] Class 3 severe obesity with serious comorbidity and body mass index (BMI) of 40.0 to 44.9 in adult, unspecified obesity type (HCC) [E66.01, Z68.41] Order(s):CONSULT TO [facility] (CHRONIC PAIN) [3571925] Order #: [id number]: 1 PAIN RECOVERY FOLLOW UP ORDER [9414962] Order #: [id number]: 1 FUTURE PROVIDER ORDERED FOLLOW UP [[id number]] Order #: [id number]: 1 FUTURE memantine (NAMENDA) 5 mg tabletTake 1 tablet by mouth once daily.Disp: 30 tabletRfl: 3 CONSULT TO KETAMINE FOR CHRONIC PAIN [9044] Order #: [id number]: 1 FUTURE Prescriptions as of 04/24/2024 - memantine (NAMENDA) 5 mg tablet Take 1 tablet by mouth once daily. - aspirin, enteric coated (ASPIRIN, ENTERIC COATED) 81 mg EC tablet Take 81 mg by mouth once daily. - fi (more content not included)... [facility] BRIEF OP NOTon 04-03-2024 BRIEF OP NOT HNO ID: [id number] Author: CAPRICE DOWNING MD Service: Pain Management Author Type: Fellow Type: Brief Op Note Filed: 04/03/2024 10:35 Note Text: BRIEF OPERATIVE / PROCEDURE NOTE LOG ID: [id number] SURGERY/PROCEDURE DATE: 04/03/2024 PROCEDURE START TIME: 958 PROCEDURE END TIME: 1030 PRE-OP/PRE-PROCEDURE DIAGNOSIS: Chronic toe pain, right foot [M79.674, G89.29] Complex regional pain syndrome type II of right lower limb [G57.71] POST-OP/POST-PROCEDURE DIAGNOSIS: Chronic toe pain, right foot [M79.674, G89.29] Complex regional pain syndrome type II of right lower limb [G57.71] SURGEON(S)/PROCEDURALI ST(S) AND MOLD INJECTOR(S): Surgeon(s) and Role: * Herberth Araujo MD, PhD - Primary * Caprice Downing MD No Additional Staff SURGERY/PROCEDURE(S): Attempted Right L4 and L5 Dorsal Root Ganglion Stimulator ANESTHESIA: Anxiolysis and Local anesthetic FINDINGS: None ESTIMATED BLOOD LOSS: Minimal SPECIMENS: None COMPLICATIONS: None Caprice Downing MD Pain Medicine Fellow April 03, [address] [facility] NURSING PROGon 04-03-2024 NURSING PROG HNO ID: [id number] Author: CAYETANO ROSALES RN Service: Nursing Author Type: Registered Nurse Type: Nursing Progress Note Filed: 04/08/2024 15:32 Note Text: Summary: Follow up phone call Follow up phone call made regarding outcome of procedure. No answer voicemail left - The patient was instructed to call [phone] with the percentage of pain relief and what activities have improved. [employer] message also sent. [facility] NURSING PROG HNO ID: [id number] Author: SURINDER LARES RN Service: Nursing Author Type: Registered Nurse Type: Nursing Progress Note Filed: 04/09/2024 10:09 Note Text: Summary: Post Procedure Call Patient left voice mail. Team was unable to finish procedure due to patient was unable to stay still. No pain relief noted. Surinder Lares RN April 09, 2024 [facility] NURSING PROG HNO ID: [id number] Author: EMILEE HYDE RN Service: ? Author Type: Registered Nurse Type: Nursing Progress Note Filed: 04/03/2024 10:45 Note Text: Dr. Marian Downing (fellow) discusses reason why procedure was aborted today. Other options for pain management was discussed with patient and . [facility] OPERATIVE NOon 04-03-2024 OPERATIVE NO HNO ID: [id number] Author: HERBERTH ARAUJO MD, PhD Service: Pain Management Author Type: Physician Type: Operative Report Filed: 04/03/2024 20:14 Note Text: OPERATIVE/PROCEDURE REPORT : LOG ID: [id number] SURGERY/PROCEDURE DATE: 04/03/2024 INCISION/PROCEDURE START TIME: 9:59 AM INCISION CLOSE/PROCEDURE END TIME: 10:30 AM PRE-OP/PRE-PROCEDURE DIAGNOSIS: Chronic toe pain, right foot [M79.674, G89.29] Complex regional pain syndrome type II of right lower limb [G57.71] POST-OP/POST-PROCEDURE DIAGNOSIS: Chronic toe pain, right foot [M79.674, G89.29] Complex regional pain syndrome type II of right lower limb [G57.71] SURGERY/PROCEDURE(S): Attempted Right L4 and L5 Dorsal Root Ganglion Stimulator SURGEON(S)/PROCEDURALI ST(S) AND MOLD INJECTOR(S): Surgeon(s) and Role: * Herberth Araujo MD, PhD - Primary * Caprice Downing MD No Additional Staff Attending presence: The attending was present for the doran portions of the procedure. ANESTHESIA: Anxiolysis and Local anesthetic SURGERY/PROCEDURE DESCRIPTION: IV was started prior to the procedure. The patient was transported to the fluoroscopy suite and was placed in a prone position on the fluoroscopy table. The patient was monitored using pulse oximetry, intermittent blood pressure reading, and 3-lead electrocardiogram. Using sterile technique, the skin over the procedure site was prepped with povidone-iodine and draped. The lumbar spine area was prepped with chlorhexidine three times and draped in a sterile fashion. Skin anesthesia was achieved using 3 cc of lidocaine 1%. A 14 3 1/2 inch Tuohy needle was inserted at the L5/S1 interspace using a left paramedian approach. The epidural space was entered using loss of resistance to air/saline with a 5 cc syringe. There was negative aspiration for blood or cerebrospinal fluid. Upon threading of the curved delivery sheath along with slim tip lead through the Touhy needle into the epidural space, the patient moved and expressed significant discomfort. Further placement of the lead could not be performed even with additional local anesthetic. An attempt was subsequently made to place the lead at the right L4/L5 neuroforamen, but again the patient was unable to lie still during maneuvering of the curved delivery sheath and slim tip lead within the epidural space. The procedure was subsequently aborted for the patient's safety. The patient was taken to the post-block recovery area for further observation. He was noted to be moving all four extremities. FINDINGS: None COMPLICATIONS: None ESTIMATED BLOOD LOSS: Minimal SPECIMENS: None IMPLANTED DEVICES: None POST-PROCEDURE AANDP: ASSESSMENT: Purposeful response to verbal or tactile stimulation: Yes Neurological status: Alert and oriented, awake and moving all extremities. Post-procedure pain level: 4 on a scale of 0-10. Postoperative nausea/vomiting (PONV): Absent PLAN - Status post Attempted Right L4 and L5 Dorsal Root Ganglion Stimulator. - Consult the Chronic Pain Rehabilitation Program, consider Ketamine infusions for CRPS-related right foot pain. - Return to clinic for follow up appointment with Eufemia Ortiz on 04/17/2024 at 10:00am to discuss other treatment options. - The treatment plan was discussed with the patient. Post-procedure instructions were reviewed and the patient voiced understanding. Caprice Downing MD Pain Medicine Fellow April 03, 2024 Attending note: doran findings were confirmed. I discussed with resident physician and the patient, was present for procedure/visit. Plan is as outlined. DRG stimulator trial trial procedure was aborted due to the patients inability to tolerate the procedure without compromising patients safety. Discussed with patient and his the next treatment option. both agreed to consider the ketamine infusion with Dr andrews at the chronic pain recovery program. ELECTRONIC SIGNATURE, Herberth Araujo MD, PhD [facility] HISTORY PHYSICALon HISTORY PHYSICAL HNO ID: [id number] Author: HERBERTH ARAUJO MD, PhD Service: Pain Management Author Type: Physician Type: H&P Filed: 04/03/2024 09:33 Note Text: PROCEDURE EVALUATION AND HISTORY AND PHYSICAL EXAM SUBJECTIVE: Dong Whitmore is a 73 year old man who presents to [facility] for Right L4 and L5 Dorsal Root Ganglion Stimulator Trial. This is his first (1) procedure. Focused Review of Systems: PAIN: Denies any contraindications to the procedure including coagulopathy, infection, recent cerebral/myocardial infarct, and hemodynamic instability. 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 Current Outpatient Medications Medication Instructions acarbose (PRECOSE) 50 mg tablet No dose, route, or frequency recorded. aspirin, enteric coated (ASPIRIN, ENTERIC COATED) 81 mg, ORAL, DAILY buPROPion XL (WELLBUTRIN XL) 300 mg 24 hr tablet No dose, route, or frequency recorded. calcium carbonate 600 mg-cholecalciferol 200 units 600 mg-5 mcg (200 unit) tab Calcium 600 DOCOSAHEXAENOIC ACID ORAL Fish Oil 1200mg BID fish oil/borage/flax/om3,6, 9 1 (FISH,BORA,FLAX OILS-OM3,6,9NO1 ORAL) ORAL, EVERY 24 HOURS JANUVIA 100 mg tablet 1 tablet, ORAL, EVERY AFTERNOON losartan (COZAAR) 50 mg tablet 1.5 tablets, ORAL, EVERY AFTERNOON metoprolol succinate ER (TOPROL XL) 50 mg 24 hr tablet 1 tablet, ORAL, EVERY 12 HOURS nitroglycerin sublingual (NITROQUICK) 0.4 mg SL tablet No dose, route, or frequency recorded. pioglitazone (ACTOS) 30 mg tablet 1 tablet, ORAL, EVERY AFTERNOON simvastatin (ZOCOR) 40 mg, ORAL, EVERY EVENING sodium bicarbonate 650 mg tablet TAKE 2 TABLETS BY MOUTH 3 TIMES A DAY FOR 90 DAYS tiZANidine (ZANAFLEX) 4 mg, ORAL, 3 TIMES DAILY NEEDED venlafaxine (EFFEXOR) 37.5 mg tablet 1 tablet, ORAL, EVERY 12 HOURS ALLERGIES Allergen Reactions Nsaids (Non-Steroid* GI Upset No past medical history on file. No past surgical history on file. OBJECTIVE: There were no vitals taken for this visit. Focused Physical Exam: LUNGS: Breathing unlabored, normal chest excursion. CARDIAC: Regular rate and rhythm. Normal peripheral perfusion. MSK: No obvious or gross deformities. Significant changes in the patient's condition since the last [facility] visit: No Provisional Diagnosis: Chronic toe pain, right foot [M79.674, G89.29] Complex regional pain syndrome type II of right lower limb [G57.71] Planned Procedure: Right L4 and L5 Dorsal Root Ganglion Stimulator Trial Caprice Downing MD Pain Medicine Fellow April 03, 2024 Herberth Araujo MD, PhD [facility] NURSING PROGon 04-01-2024 NURSING PROG HNO ID: [id number] Author: GILBERTO BAUTISTA, DENISE Service: ? Author Type: Registered Nurse Type: Nursing Progress Note Filed: 04/01/2024 10:58 Note Text: [facility] Pre- Procedure Telephone Instructions Patient called to remind them of their appointment on 04/03/[address] Araujo Patient instructed to arrive at 0915 Message left: Yes Instructions given: 1. Do not eat or drink for 8 hours, however, you may have clear liquids up to 2 hours before the appointment. 2. A limousine driver must be present who can drive you home. If you are coming by medical transport, you must have a responsible person other than the vp transportation with you. 3. Do you take any Blood Thinners? Last dose date and time. ASA 81 If you take blood thinners and have questions about/if and when to hold please contact our office. 4. If you take insulin, contact your prescribing physician for specific instructions if adjustments need to be made. 5. Take routine medications, including heart, blood pressure, or seizure medications with water. 6. Are you currently taking Antibiotics: 7. Please reschedule if you are ill, have an infection, a fever, or cannot make the appointment by calling [phone] (Option 2). [facility] Ambulatory Visit Summaryon 0 03-26-2024 Ambulatory Visit Summary DONG WHITMORE :1950 Visit Date:03/26/2024 Ambulatory Visit Instructions Your Diagnosis Stage 3a chronic kidney disease Type 2 diabetes mellitus with peripheral vascular disease Type 2 diabetes mellitus with stage 3a chronic kidney disease and hypertension Erythema of skin BMI 40.0-44.9, adult Class 3 severe obesity due to excess calories with body mass index (BMI) of 40.0 to 44.9 in adult Nonsmoker Lumbar stenosis Peripheral edema Your Care Team Attending Physician - Haider Hickman MD Primary Care Physician - Haider Hickman MD. This Is Your Medications List [facility] [place] (Eric Prather, 5 years.) furosemide (Lasix 40 mg Tab) potassium chloride (Potassium Chloride (Ehb-Hnak-Iwd M20) 20 mEq oral tablet, extended release) Contact prescribing physician if questions or concerns acarbose (acarbose 25 mg oral tablet) aspirin (aspirin 81 mg Oral EC Tab) buPROPion (Wellbutrin XL 300 mg/24 hours Tab-ER) losartan (losartan 50 mg Tab) metoprolol (metoprolol 50 mg ER Tab) nitroglycerin (nitroglycerin 0.4 mg sublingual Tab) omega-3 polyunsaturated fatty acids (Fish Oil 1200 mg oral capsule) pioglitazone (pioglitazone 30 mg Tab) simvastatin (simvastatin 40 mg Tab) sitagliptin (Januvia [...] heart, Colonoscopy, CTR - Carpal tunnel release, ESWL of kidney, Heel spur....., History of tonsillectomy, Placement of stent in cardiac conduit, Stimulator. Discharge Vitals Temperature (Temporal Artery) 36.9 ?C Heart Rate (Peripheral) 70 Respiratory Rate 18 Blood Pressure 144/70 Height 67 in Height 171 cm Weight 268.4 lb Weight 122 kg BMI 41.72 What to do next Scheduled Follow-Up Appointments Monday 9:30 AM EDT With: Where: [facility] [place] Invalid Interpretation Code [address], [address] [place] [address]- \.br \ Monday 2:15 PM EST \.br\ With: Kristofer SCHUSTER, Haider Bee\.br\ Where: [facility] Medicine Office/Clini c Noteon 03-26-2024 [facility] Medicine Office/Clinic Note HPI Staff Dong is a 73 year old male presenting for 3 month follow up DM Sees Dr Vega next Monday and then to [facility] on Mon. Do you have any of the following symptoms? Foot Exam: has them every 8 weeks or so Eye Exam: UTD Last A1C: Hgb A1C %: 6.5 % High (03/08/24 08:30:00) Hgb A1c POC: 6 % (12/26/23 12:06:00) Statin: simvastatin 40mg questions/concerns: toe is really bothering him today and it affects everything he does, BP is elevated today ? from the toe pain, he sure hopes [facility] can get it fixed Would like his right leg checked, it's all swelled up and red. And it's starting to hurt now History of Present Illness - See staff HPI. Review of Systems PHQ Score Initial Depression Screen Score: 0 SCORE Physical Exam Vitals & Measurements T: 36.9 ?C(Temporal Artery) HR: 70(Peripheral) RR: 18 BP: 144/70 SpO2: 97% HT: 67 in HT: 171 cm WT: 122 kg WT: 268.4 lb BMI: 41.72 General: alert, no acute distress ENMT: oral mucosa moist, Cardiovascular: regular rate and rhythm, normal peripheral perfusion Respiratory: Lungs CTA, respirations non labored Extremities: no deformity, no trauma, ERythema of the R leg. 1+ pitting edema Neurological: oriented x 4, LOC appropriate for age, CN II-XII intact, motor strength equal & normal bilaterally, speech normal Abdomen: Soft, Nontender, Non-distended, + BS Assessment/Plan 1. Stage 3a chronic kidney disease (N18.31: Chronic kidney disease, stage 3a) - Stable. - Monitored renal function at next visit Ordered: Misc Prescription, Handicap Placard, 5 years., See Instructions, 1 EA, 0, Handicap Placard, 5 years., Supply Body Mass Index (BMI) documented 3008F Current tobacco non-user 1036F Depression Screening Negative 3352F Influenza immunization administered or previously received 4274F Most recent diastolic blood pressure <80 mm Hg 3078F Most recent systolic blood pressure >= 140 mm Hg 3077F Patient screen for fall risk: no falls in last year or 1 fall with no injury in last year 1101F 2. Type 2 diabetes mellitus with peripheral vascular disease (E11.51: Type 2 diabetes mellitus with diabetic peripheral angiopathy without gangrene) - 6.5 - Seeing Endo - No issues Ordered: Misc Prescription, Handicap Placard, 5 years., See Instructions, 1 EA, 0, Handicap Placard, 5 years., Supply Body Mass Index (BMI) documented 3008F Current tobacco non-user 1036F Depression Screening Negative 3352F Influenza immunization administered or previously received 4274F Most recent diastolic blood pressure <80 mm Hg 3078F Most recent systolic blood pressure >= 140 mm Hg 3077F Patient screen for fall risk: no falls in last year or 1 fall with no injury in last year 1101F 3. Type 2 diabetes mellitus with stage 3a chronic kidney disease and hypertension (E11.22: Type 2 diabetes mellitus with diabetic chronic kidney disease) - As above Ordered: Misc Prescription, Handicap Placard, 5 years., See Instructions, 1 EA, 0, Handicap Placard, 5 years., Supply Body Mass Index (BMI) documented 3008F Current tobacco non-user 1036F Depression Screening Negative 3352F Influenza immunization administered or previously received 4274F Most recent diastolic blood pressure <80 mm Hg 3078F Most recent systolic blood pressure >= 140 mm Hg 3077F Patient screen for fall risk: no falls in last year or 1 fall with no injury in last year 1101F 4. Erythema of skin (L53.9: Erythematous condition, unspecified) - Worsened - Will use the Lasix to help. - Vascular for further work up if this does not help Ordered: Misc Prescription, Handicap Placard, 5 years., See Instructions, 1 EA, 0, Handicap Placard, 5 years., Supply Body Mass Index (BMI) documented 3008F Current tobacco non-user 1036F Depression Screening Negative 3352F Influenza immunization administered or previously received 4274F Most recent diastolic blood pressure <80 mm Hg 3078F Most recent systolic blood pressure >= 140 mm Hg 3077F Patient screen for fall risk: no falls in last year or 1 fall with no injury in last year 1101F 5. BMI 40.0-44.9, adult (Z68.41: Body mass index [BMI] 40.0-44.9, adult) - BMI education discussed Ordered: Misc Prescription, Handicap Placard, 5 years., See Instructions, 1 EA, 0, Handicap Placard, 5 years., Supply Body Mass Index (BMI) documented 3008F Current tobacco non-user 1036F Depression Screening Negative 3352F Influenza immunization administered or previously received 4274F Most recent diastolic blood pressure <80 mm Hg 3078F Most recent systolic blood pressure >= 140 mm Hg 3077F Patient screen for fall risk: no falls in last year or 1 fall with no injury in last year 1101F 6. Class 3 severe obesity due to excess calories with body mass index (BMI) of 40.0 to 44.9 in adult (E66.01: Morbid (severe) obesity due to excess calories) - As above Ordered: Misc Prescription, Handicap Placard, 5 years., See Instructions, 1 EA, 0, Handicap Placard, 5 years., Suppl (more content not included)... Normal [facility] Comment on above: Result Comment: Elec tronically Signed By: Kristofer SCHUSTER, Haider Bee\.br\Date and Time Signed: 03/26/24 14:46 EDT Patient Educationon 03-26-20 Patient Education Nutrition BMI for Adults What [...] numbers. This can be done either in [place] or metric measurements. Note that charts and online BMI calculators are available to help you find your BMI quickly and easily without having to do these calculations yourself. To calculate your BMI in [place] ([place] measurements: 1. Measure your weight in [...] for Disease Control and Prevention: www.cdc.gov ? [place] Heart Association: www.heart.org ? National Heart, Lung, and Blood [place]: www.nhlbi.nih.gov Summary ? Body mass index (BMI) is a number that is calculated from a person's weight and height. ? BMI may help estimate how much of a person's weight is composed of fat. BMI can help identify those who may be at higher risk for certain medical problems. ? BMI can be measured using [place] measurements or metric measurements. ? BMI charts are used to identify whether you are underweight, normal weight, overweight, or obese. This information is not intended to replace advice given to you by your health care provider. Make sure you discuss any questions you have with your health care provider. Document Revised: 06/17/2020 Document Reviewed: 04/24/2020 [employer] Patient Education ? [address] [facility] Sona 03-19-2024 CNPN Telephone (PAINMN) DONG WHITMORE ([id number]) 1950 M Date Time Provider Department 03/19/24 HERBERTH ARAUJO PAINMN During your visit today, we recorded the following information about you: Emilee So, RN 03/19/2024 1:32 PM Signed Spoke with patient at request of tie presser as patient has questions about referral to infectious disease. Patient states that he spoke with his PCP, Dr. Hickman ([phone]) who spoke with Dr. Vega in Infectious disease at [facility]. Dr. Hickman ordered lab work at the request of Dr. Vega and told patient that everything is fine . Patient is asking if he still needs to see infectious disease as he cannot get an appointment with them until 04/01 (2 days before scheduled trial for DRG) Spoke with RN, Nelli, in Dr. Hickman' office. She states that labs were ordered and that patient was given referral for ID. She will fax over lab test results as they are not on EPIC. She will discuss with Dr. Hickman to see if he is able to expedite patient's appointment with infectious disease so that DRG trial may move forward as planned. DENISE Michaud Kathryn A, PA-C 03/21/2024 9:26 AM Signed Ok per Dr Araujo to proceed with trial - still recommending to keep appt with ID Emilee So RN 03/21/2024 11:38 AM Signed Spoke with patient and notified him of provider recommendations. Verbalized understanding. Emilee So RN Allergies As of Date: 03/19/2024 Noted Allergy Reaction NSAIDS (NON-STEROIDAL ANTI-INFLAM*02/05/2024 8 - GI Upset Date Reviewed: 02/29/2024 Reviewed by: Preeti Layton LPN - Fully Assessed Reason for Visit: Nurse Triage Call [[id number]] Prescriptions as of 03/21/2024 - aspirin, enteric coated (ASPIRIN, ENTERIC COATED) 81 mg EC tablet Take 81 mg by mouth once daily. - fish oil/borage/flax/om3,6, 9 1 (FISH,BORA,FLAX OILS-OM3,6,9NO1 ORAL) Take by mouth every 24 hours. - metoprolol succinate ER (TOPROL XL) 50 mg 24 hr tablet Take 1 tablet by mouth every 12 hours. - buPROPion XL (WELLBUTRIN XL) 300 mg 24 hr tablet - venlafaxine (EFFEXOR) 37.5 mg tablet Take 1 tablet by mouth every 12 hours. - acarbose (PRECOSE) 50 mg tablet - JANUVIA 100 mg tablet Take 1 tablet by mouth every afternoon. - sodium bicarbonate 650 mg tablet TAKE 2 TABLETS BY MOUTH 3 TIMES A DAY FOR 90 DAYS - DOCOSAHEXAENOIC ACID ORAL Fish Oil 1200mg BID - calcium carbonate 600 mg-cholecalciferol 200 units 600 mg-5 mcg (200 unit) tab Calcium 600 - losartan (COZAAR) 50 mg tablet Take 1.5 tablets by mouth every afternoon. - simvastatin (ZOCOR) 40 mg tablet Take 40 mg by mouth every evening. - tiZANidine (ZANAFLEX) 4 mg tablet Take 4 mg by mouth three times a day as needed. - pioglitazone (ACTOS) 30 mg tablet Take 1 tablet by mouth every afternoon. - nitroglycerin sublingual (NITROQUICK) 0.4 mg SL tablet Problem List As Of Date 03/19/2024 Noted Resolved Class 3 severe obesity with serious comorbidity*02/05/2024 Encounter Status:Closed by EMILEE SO on 03/21/[address] [facility] BMPon 03-08-2024 Anion gap [Moles/Vol] 14 mmol/L Normal 6-16 [facility] Comment on above: Performed By: #### 2 [id number] #### [facility] [address] [place] [address] Calcium [Mass/Vol] 9.4 mg/dL Normal 8.9-11.1 [facility] Comment on above: Performed By: #### 2 [id number] #### [facility] [address] [place] [address] Chloride [Moles/Vol] 104 mmol/L Normal 101-111 [place] Comment on above: Performed By: #### 2 [id number] #### [facility] [address] [place] [address] CO2 [Moles/Vol] 24 mmol/L Normal 21-31 [facility] Comment on above: Performed By: #### 2 [id number] #### [facility] [address] [place] [address] Creatinine [Mass/Vol] 1.5 mg/dL High 0.5-1.3 [facility] Comment on above: Performed By: #### 2 [id number] #### [facility] [address] [place] [address] Glucose [Mass/Vol] 109 mg/dL Normal 55-199 [facility] Comment on above: Performed By: #### 2 [id number] #### [facility] [address] [place] [address] Potassium [Moles/Vol] 4.2 mmol/L Normal 3.5-5.3 [facility] Comment on above: Performed By: #### 2 [id number] #### [facility] [address] [place] [address] Sodium [Moles/Vol] 138 mmol/L Normal 135-145 [facility] Comment on above: Performed By: #### 2 [id number] #### [facility] [address] [place] [address] Urea nitrogen [Mass/Vol] 26 mg/dL High 5-21 [facility] Comment on above: Performed By: #### 2 [id number] #### [facility] [address] [place] [address] Urea nitrogen/Creatinine [Mass ratio] 17 No Units Normal 10-20 [facility] Comment on above: Performed By: #### 2 [id number] #### [facility] [address] [place] [address] Consent for Treatmenton 02-08 Consent for Treatment [id number] 0TIFF Normal [facility] GcgU1axn 03-08-2024 HbA1c (Bld) [Mass fraction] 6.5 % High <=5.9 [facility] Comment on above: Performed By: #### 7 [id number] #### [facility] [address] [place] [address] eGFRon 03-08-2024 eGFR 48 mL/min/1.73 m2 Low >=59 [facility] Comment on above: Order Comment: Order added by Discern Expert. Performed By: #### 1 [id number] #### [facility] [address] [place] [address] Ambulatory Visit Summaryon 0 03-07-2024 Ambulatory Visit Summary DONG WHITMORE :1950 Visit Date:03/07/2024 Ambulatory Visit Instructions Your Diagnosis Erythema of skin Stage 3a chronic kidney disease Stasis ulcer Morbid obesity with body mass index of 40.0-44.9 in adult Type 2 diabetes mellitus with peripheral vascular disease BMI 40.0-44.9, adult Nonsmoker Your Care Team Attending Physician - Haider Hickman MD Primary Care Physician - Haider Hickman MD This Is Your Medications List acarbose (acarbose 25 mg oral tablet) aspirin (aspirin 81 mg Oral EC Tab) buPROPion (Wellbutrin XL 300 mg/24 hours Tab-ER) losartan (losartan 50 mg Tab) metoprolol (metoprolol 50 mg ER Tab) nitroglycerin (nitroglycerin 0.4 mg sublingual Tab) omega-3 polyunsaturated fatty acids (Fish Oil 1200 mg oral capsule) pioglitazone (pioglitazone 30 mg Tab) simvastatin (simvastatin 40 mg Tab) sitagliptin (Januvia [...] heart, Colonoscopy, CTR - Carpal tunnel release, ESWL of kidney, Heel spur....., History of tonsillectomy, Placement of stent in cardiac conduit, Stimulator. Discharge Vitals Temperature (Temporal Artery) 36.9 ?C Heart Rate (Peripheral) 82 Respiratory Rate 18 Blood Pressure 124/72 Height 171 cm Height 67 in Weight 122 kg Weight 268.4 lb BMI 41.72 What to do next Scheduled Follow-Up Appointments Monday 2:15 PM EDT With: Kristofer SCHUSTER, Haider Bee Where: [facility] [place] Invalid Interpretation Code [address] [place] [address]- \.br \ Monday 9:15 AM EDT \.br\ With: Araceli BERMUDEZ MD\.br\ Where: [facility] Office/Clini c Noteon 03-07-2024 Family Medicine Office/Clinic Note HPI Staff Dong is a 73 year old male presenting for infection right leg referral to infectious disease and possible cultures called with info as she's not sure she'll be with her at this appt He was seen at [facility] and is having drg?? end of March, they want him to see infectious disease dr and they need referral from PCP but not sure if he needs anything done by PCP before he sees him or if they do whatever it's required. They did mention something about cultures and Dr Hickman ordering them? questions/concerns: see above History of Present Illness - Please see staff HPI. - Pt states he has had a work up by [facility] Wound. - No answers - NO hx of DVT in that leg. - Has compression stockings, but does not wear them. Review of Systems PHQ Score Initial Depression Screen Score: 0 SCORE Physical Exam Vitals & Measurements T: 36.9 ?C(Temporal Artery) HR: 82(Peripheral) RR: 18 BP: 124/72 SpO2: 97% HT: 67 in HT: 171 cm WT: 122 kg WT: 268.4 lb BMI: 41.72 General: alert, no acute distress ENMT: oral mucosa moist, Cardiovascular: regular rate and rhythm, normal peripheral perfusion Respiratory: Lungs CTA, respirations non labored Extremities: no deformity, no trauma, Trace pitting edema of the R leg. Erythema noted from the knee to the ankle. This is chronic. Neurological: oriented x 4, LOC appropriate for age, CN II-XII intact, motor strength equal & normal bilaterally, speech normal Abdomen: Soft, Nontender, Non-distended, + BS Assessment/Plan Total time spent preparing for the encounter, evaluating and assessing the patient, documenting the visit, and ordering appropriate follow-up work was 40 minutes. 1. Erythema of skin (L53.9: Erythematous condition, unspecified) - I do not believe this is an infection. - F physician will not do the procedure without ID consult. - Will placed and do BCX - Pt has already had a work up in the past for this and everything was WNL per the patient. - He needs to wear compression stocking, however they cause his legs to break out. - Will see the patient back in 2 weeks Ordered: Basic Metabolic Panel Blood Culture Charcoal [facility] [place] External Ambulatory Referral HgbA1c 2. Stage 3a chronic kidney disease (N18.31: Chronic kidney disease, stage 3a) - Will recheck today. - No concerns Ordered: Basic Metabolic Panel Blood Culture Charcoal [facility] [place] External Ambulatory Referral HgbA1c 3. Stasis ulcer (I83.009: Varicose veins of unspecified lower extremity with ulcer of unspecified site) - Most likely the cause of number 1. - No ulcer today Ordered: Basic Metabolic Panel Blood Culture Charcoal [facility] [place] External Ambulatory Referral HgbA1c 4. Morbid obesity with body mass index of 40.0-44.9 in adult (E66.01: Morbid (severe) obesity due to excess calories) - Diet and exercise advsied Ordered: Basic Metabolic Panel Blood Culture Charcoal Body Mass Index (BMI) documented 3008F Current tobacco non-user 1036F Depression Screening Negative 3352F [facility] [place] External Ambulatory Referral HgbA1c Influenza immunization administered or previously received 4274F Most recent diastolic blood pressure <80 mm Hg 3078F Patient screen for fall risk: no falls in last year or 1 fall with no injury in last year 1101F Systolic BP <130 mm Hg (Most Recent) 3074F 5. Type 2 diabetes mellitus with peripheral vascular disease (E11.51: Type 2 diabetes mellitus with diabetic peripheral angiopathy without gangrene) - Will check A1c while he is getting labs Ordered: Basic Metabolic Panel Blood Culture Charcoal [facility] [place] External Ambulatory Referral HgbA1c 6. BMI 40.0-44.9, adult (Z68.41: Body mass index [BMI] 40.0-44.9, adult) - BMI education uploaded Ordered: Basic Metabolic Panel Blood Culture Charcoal Body Mass Index (BMI) documented 3008F Current tobacco non-user 1036F Depression Screening Negative 3352F HgbA1c Influenza immunization administered or previously received 4274F Most recent diastolic blood pressure <80 mm Hg 3078F Patient screen for fall risk: no falls in last year or 1 fall with no injury in last year 1101F Systolic BP <130 mm Hg (Most Recent) 3074F 7. Nonsmoker (Z78.9: Other specified health status) - Please continue to not smoke Ordered: Basic Metabolic Panel Blood Culture [place] Body Mass Index (BMI) documented 3008F Current tobacco non-user 1036F Depression Screening Negative 3352F HgbA1c Influenza immunization administered or previously received 4274F Most recent diastolic blood pressure <80 mm Hg 3078F Patient screen for fall risk: no falls in last year or 1 fall with no injury in last year 1101F Systolic BP <130 mm Hg (Most Recent) 3074F Follow-up No qualifying data available Problem List/Past Medical History Ongoing Acquired absence of right great toe Allergic rhinitis Anticoagulated 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 [facility] Comment on above: Result Comment: Elec tronically Signed By: Kristofer SCHUSTER, Haider Sandhu.br\Date and Time Signed: 03/07/24 11:12 EDT Physician Referralon 024 Physician Referral [id number] [facility] CNOVon 02-29-2024 CNOV Office Visit (PAINMN ) DONG WHITMORE ([id number]) 1950 M Date Time Provider Department 02/29/24 1:30 PM HERBERTH ARAUJO PAINMN During your visit today, we recorded the following information about you: Temperature Pulse Blood pressure Weight 97.4 degrees 62/minute 138/73 122.5 kg Height 1.702 m Herberth Aarujo MD, PhD 03/18/2024 7:05 PM Signed [facility] Pain Management Department New Patient Consultation Referring Physician: SELF Chief Complaint: Right third toe pain SUBJECTIVE: Dong Whitmore is a 73 year old male with a pertinent past medical history of diabetes who presents to [facility] for the evaluation of right third toe pain. 15-year history of right third toe pain. He notes that over this time the pain has become increasingly severe has caused him significant discomfort and suffering. He has been to many specialists in the [facility]-over the course of the past 15 years, there has been no unifying diagnosis to discern why this toe continues to be painful. He notes that this pain is the pain only in the third toe of his right foot there is an aching, burning, stabbing, throb. He is unsure what brings it on, he notes that it is usually worse with sitting and laying. It can usually go away with walking and standing, however it is not 100% reliable. He does not note the classic symptoms of painful diabetic neuropathy-he notes no significant burning in his feet, just numbness in the toes and on the bottoms of his feet. He has tried a variety of medications including gabapentin, Lyrica, amitriptyline, Cymbalta-none of these were ever effective. Intensity of pain: 0 on a scale of 0-10. Duration of pain: many years ago, with no precipitating event.. The pain is located Rt foot middle toe and does not radiate on the right. Pain Description: ache,sharp,dull,throbb Timing: changes in severity but always present Aggravating Factors: sitting Alleviating Factors: standing/walking Interference with: social activities. The patient denies difficulty with bowel or bladder control, unintentional weight loss, fevers, chills, or night sweats, and drug use . Physical Therapy/Home Exercise: No In the past 12 months, He completed 0 physical therapy sessions. Physical therapy is n/a. Current Pain Medications and Dosages: - Opioids: N - NSAIDs: N - Anti-Depressants: venlafaxine - Anti-Convulsants: N - Others: zanaflex Prior treatments: physical therapy, medications, injections Prior Pain Procedures (with percentage of pain relief and duration of relief): LUMBAR SYMPATHETIC BLOCKS Scs trial OARRS report: Reviewed: The patient's OARRS report was reviewed and is consistent with the reported medication use. Pain medications reviewed: Yes Pertinent Imaging: MRI lumbar spine: No past medical history on file. No past surgical history on file. No family history on file. ALLERGIES Allergen Reactions Nsaids (Non-Steroid* GI Upset Current Outpatient Medications Medication Sig fish oil/borage/flax/om3,6, 9 1 (FISH,BORA,FLAX OILS-OM3,6,9NO1 ORAL) Take by mouth every 24 hours. metoprolol succinate ER (TOPROL XL) 50 mg 24 hr tablet Take 1 tablet by mouth every 12 hours. buPROPion XL (WELLBUTRIN XL) 300 mg 24 hr tablet venlafaxine (EFFEXOR) 37.5 mg tablet Take 1 tablet by mouth every 12 hours. acarbose (PRECOSE) 50 mg tablet JANUVIA 100 mg tablet Take 1 tablet by mouth every afternoon. sodium bicarbonate 650 mg tablet TAKE 2 TABLETS BY MOUTH 3 TIMES A DAY FOR 90 DAYS DOCOSAHEXAENOIC ACID ORAL Fish Oil 1200mg BID calcium carbonate 600 mg-cholecalciferol 200 units 600 mg-5 mcg (200 unit) tab Calcium 600 losartan (COZAAR) 50 mg tablet Take 1.5 tablets by mouth every afternoon. simvastatin (ZOCOR) 40 mg tablet Take 40 mg by mouth every evening. tiZANidine (ZANAFLEX) 4 mg tablet Take 4 mg by mouth three times a day as needed. pioglitazone (ACTOS) 30 mg tablet Take 1 tablet by mouth every afternoon. nitroglycerin sublingual (NITROQUICK) 0.4 mg SL tablet No current facility-administered medications for this visit. Questionnaires: Patient Entered Questionnaires PROMIS Score Percentiles 02/29/2024 PROMIS Global Health Scale Physical Health Percentile 2 Mental Health Percentile 5 02/29/2024 Physical Health Physical Function Percentile 7 Pain Interference Percentile 2 Percentiles provide an indication of how the patient's score ranks in relation to the general population. Higher percentile rankings indicate better function/quality of life. 50th percentile is the average of the general population and indicates half of respondents had a worse score. > 31st percentile is within normal limits or better * < 31st percentile is at least ? SD worse than population, which may be clinically relevant < 16th pe (more content not included)... [facility] Rem[facility]ers - From: Vandana Hilton MA (EU - Recalls Aidan) To: EU - Recalls Aidan; Sent: 02/09/2024 13:50:30 EDT Show up: 06/09/2024 13:50:00 EDT Subject: renal us Reminder/Recall Addendum by Sharla Longoria on January 30, 2024 13:44:48 EDT From: Sharla Longoria (EU - Clinical) To: EU - Recalls Aidan; Sent: 01/30/2024 13:44:48 EDT Subject: FW: f/u after ESWL -Order for Renal US sent to Due Date/Time: 05/31/2024 13:44:00 EDT Caller Name: DONG WHITMORE; Caller Number: H , B [phone] Addendum by Sharla Longoria on January 30, 2024 13:43:59 EDT Called pt and advised him of below message. Pt voiced understanding. Pt scheduled for 07/17/24 w/ TERRIE. Will send to [facility] recall for TERRIE. Addendum by Araceli BERMUDEZ MD on January 29, 2024 18:12:03 EDT From: Araceli BERMUDEZ MD To: EU - Clinical; Sent: 01/29/2024 18:12:03 EDT Subject: RE: f/u after ESWL -Order for Renal US sent to FT Caller Name: DONG WHITMORE; Caller Number: H , B [phone] Please let the patient know that the kidney ultrasound was reviewed. This reveals no evidence of any obvious large stone. Should he develop any significant flank pain that a CT scan would be a better study. At this point I am happy with the results of the ESWL and I like to see him back in about 6 months with a kidney ultrasound repeated. Thanks [facility] Addendum by Erica Rossi on January 29, 2024 13:40:04 EDT From: Erica Rossi (EU - Pending Results) To: Araceli BERMUDEZ MD; Sent: 01/29/2024 13:40:04 EDT Subject: FW: f/u after ESWL -Order for Renal US sent to FT Caller Name: DONG WHITMORE; Caller Number: H , B [phone] Pt s/p R ESWL 01/03, to get TERRIE 2 weeks afterwards. TERRIE report attached but study was limited due to pt's body habitus but no stones visualized. Is this sufficient or should further testing be ordered? Thanks! Addendum by Sharla Longoria on January 26, 2024 14:48:41 EDT TERRIE still in progress Addendum by Pearl Lindsey MA on January 25, 2024 13:09:35 EDT TERRIE is in progress Addendum by ASMITA Martines APRN, [facility] on January 19, 2024 12:57:58 EDT From: ASMITA Martines APRN, [facility] (PREM Markr RUPERT/Aidan Messages & Refills) To: EU - Pending Results; Sent: 01/19/2024 12:57:58 EDT Subject: FW: f/u after ESWL -Order for Renal US sent to Due Date/Time: 01/25/2024 12:57:00 EDT Caller Name: CHRISETHEL DONG Nur; Caller Number: H , B [phone] Addendum by Nan Hodges MA on January 19, 2024 12:33:50 EDT From: Nan Hodges MA (EU - Pending Results) To: EU - RUPERT/Aidan Messages & Refills; Sent: 01/19/2024 12:33:50 EDT Subject: RE: f/u after ESWL -Order for Renal US sent to Due Date/Time: 01/25/2024 12:33:00 EDT Caller Name: CHRISETHEL DONG Nur; Caller Number: H , B [phone] Scheduled 01/24/24 @ [facility] – [place] From: Elena Robbins To: - Pending Results; Sent: 01/08/2024 09:17:33 EDT Subject: f/u after ESWL -Order for Renal US sent to Due Date/Time: 01/17/2024 09:17:00 EDT Caller Name: CHRISETHEL DONG Boom; Caller Number: Ray , B [phone] Pt is PO R ESWL 01/03 - he is to get renal US in 2 weeks and call for results if we don't contact him 1st - order sent to [facility] CNPCynthia 02-06-2024 CNPN Telephone (PAMAVN) DONG WHITMORE ([id number]) 1950 M Date Time Provider Department 02/06/24 FRANCOISE SINGLETARY During your visit today, we recorded the following information about you: Lela Hyatt RN 02/06/2024 10:46 AM Signed ----- Message from Francoise Singletary MD sent at 02/05/2024 3:12 PM EDT ----- Do you mind calling him and giving him the number to schedule at [facility] [place] to discuss DRG? I'd suggest seeking an appointment with the following doctors who perform DRG implantation: Dr. Carlisle, Dr. Araujo, Dr. Dan, Dr. Moo Mcwilliams and Dr. Kamara may do DRG - I'm not sure. Thanks Lela! ----- Message ----- From: Livia Lester PA-C Sent: 02/05/2024 2:07 PM EDT To: Francoise Singletary MD No one on this side of [facility] that I know of does DRG so, we also send to Main I would just have Lela call the patient and tell him this is not something you do and tell him he needs to be seen a Main ----- Message ----- From: Francoise Singletary MD Sent: 02/05/2024 1:45 PM EDT To: Livia Lester PA-C Hi! He was supposed to get referred for consideration of DRG - the only people I know who do DRG are at [facility]. How do we refer him there? From what I remember, Truman Melendez, Ni, and Moo do DRG - do you know of anyone else? Lela Hyatt, DENISE 02/06/2024 10:55 AM Signed Called and spoke to patient. Gave him this message from Dr. Singletary: I'd suggest seeking an appointment with the following doctors who perform DRG implantation: Dr. Carlisle, Dr. Araujo, Dr. Dan, Dr. Cortés Patient voiced understanding. Khadra Stein 02/12/2024 3:30 PM Signed Referring physician office called stating they need Dr Singletary to put a release of care in the FYI tab before the patient can schedule with someone else. Livia Lester PA-C 02/13/2024 12:08 PM Signed Dong Whitmore has been released from the care of Dr. Francoise Singletary. The patient may be scheduled for a re-evaluation with another Pain Management physician 1 additional time per the department policy. Livia Bravo PA-C Allergies As of Date: 02/06/2024 Noted Allergy Reaction NSAIDS (NON-STEROIDAL ANTI-INFLAM*02/05/2024 8 - GI Upset Date Reviewed: 02/05/2024 Reviewed by: Francoise Singletary MD - Fully Assessed Prescriptions as of 02/13/2024 - fish oil/borage/flax/om3,6, 9 1 (FISH,BORA,FLAX OILS-OM3,6,9NO1 ORAL) Take by mouth every 24 hours. - metoprolol succinate ER (TOPROL XL) 50 mg 24 hr tablet Take 1 tablet by mouth every 12 hours. - buPROPion XL (WELLBUTRIN XL) 300 mg 24 hr tablet - venlafaxine (EFFEXOR) 37.5 mg tablet Take 1 tablet by mouth every 12 hours. - acarbose (PRECOSE) 50 mg tablet - JANUVIA 100 mg tablet Take 1 tablet by mouth every afternoon. - sodium bicarbonate 650 mg tablet TAKE 2 TABLETS BY MOUTH 3 TIMES A DAY FOR 90 DAYS - DOCOSAHEXAENOIC ACID ORAL Fish Oil 1200mg BID - calcium carbonate 600 mg-cholecalciferol 200 units 600 mg-5 mcg (200 unit) tab Calcium 600 - losartan (COZAAR) 50 mg tablet Take 1.5 tablets by mouth every afternoon. - simvastatin (ZOCOR) 40 mg tablet Take 40 mg by mouth every evening. - tiZANidine (ZANAFLEX) 4 mg tablet Take 4 mg by mouth three times a day as needed. - pioglitazone (ACTOS) 30 mg tablet Take 1 tablet by mouth every afternoon. - nitroglycerin sublingual (NITROQUICK) 0.4 mg SL tablet Problem List As Of Date 02/06/2024 Noted Resolved Class 3 severe obesity with serious comorbidity*02/05/2024 Encounter Status:Closed by LELA HYATT on 02/06/[address] [facility] CNOVon 02-05-2024 FRANCHESCA Office Visit (DENICE ) DONG WHITMORE ([id number]) 1950 M Date Time Provider Department 02/05/24 11:30 AM FRANCOISE SINGLETARY During your visit today, we recorded the following information about you: Pulse Blood pressure Weight 80/minute 131/70 124.7 kg Francoise Singletary MD 02/05/2024 3:14 PM Signed [facility] Pain Management Department Consultation Date: February 02, 2024 - 1:48 PM Referring physician: No referring provider defined for this encounter. Dong Whitmore is self referred. Chief Complaint: Patient presents with: Consult: Rt foot SUBJECTIVE History of Present Illness Dong Whitmore is a 73 year old and presents with Right foot. Past medical history is significant for: No past medical history on file. Intensity of pain: 0 on a scale of 0-10. Duration of pain: many years ago, with no precipitating event.. The pain is located Rt foot middle toe and does not radiate on the right. Pain Description: ache,sharp,dull,throbb Timing: changes in severity but always present Aggravating Factors: sitting Alleviating Factors: standing/walking Interference with: social activities. In the past 12 months, He completed 0 physical therapy sessions. Physical therapy is n/a. The patient has seen other pain providers. [facility] Neurology OV 02/01/22 Assessment and Plan 71 year old man with past medical History significant for diabetes mellitus type 2, presenting with right middle toe pain which has been ongoing for the last 12 to 13 years. He denies having any weakness however does have sensory loss and has feet bilaterally and hands. He notes that the pain is worse at night and improves with ambulation. He has tried gabapentin and Lyrica in the past without significant relief. Neurologic exam is significant for glove and stocking distribution sensory loss, positive Romberg. EMG nerve conduction positive for polyneuropathy. Impression: Polyneuropathy, localized to right toe pain unlikely to be related to his prior longstanding back pain. Possible Red Flag Dong Whitmore has no red flag symptoms. Past pain treatment has included injection Past pain medications have included None He had relief from the following interventions: None He had relief from the following medications:None Review of Systems Constitutional: Negative. HENT: Negative. Eyes: Negative. Respiratory: Positive for cough and shortness of breath. Negative for hemoptysis, sputum production and wheezing. Cardiovascular: Negative. Gastrointestinal: Negative. Genitourinary: Positive for frequency. Negative for dysuria, flank pain, hematuria and urgency. Musculoskeletal: Positive for back pain. Negative for falls, joint pain, myalgias and neck pain. Skin: Negative. Neurological: Negative. Endo/Heme/Allergies: Negative for environmental allergies and polydipsia. Bruises/bleeds easily. Psychiatric/Behavioral : Negative. OBJECTIVE Imaging Objective February 02, 2024 MRI to be uploaded to our system Reports listed here were copy and pasted directly into the note after review of the complete report and/or the images. Those areas highlighted in red are significant and specific to today's encounter. Physical Examination Physical Exam Vitals: BP 131/70 Pulse 80 Wt 275 lb (124.7kg) General: Well appearing, alert, in no acute distress, well-hydrated, well nourished. and Obese Mental Status: Alert and Oriented x3. Speech is normal. Affect: even Skin: Skin color, texture, turgor normal, no suspicious rashes or lesions HEENT: Pupils equal, round, reactive to light. Not pinpoint. Pulmonary: Breathing easily without tachypnea or bradypnea. Cardiac: No LE edema. Abdomen: soft, not distended Ambulation: Gait is antalgic. Patient ambulates, unassisted. 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 Right third toe not tender to palpation, numbness noted of the toe and the bottom of the right foot. No significant discoloration. Patient denies any red flag symptoms such as bowel/bladder dysfunction or sudden weakness. Assessment AND Plan Assessment AND Plan February 02, 2024 The primary encounter diagnosis was Chronic toe pain, right foot. A diagnosis of Painful diabetic neuropathy (HCC) was also pertinent to this visit. This is a 73 year old (more content not included)... Normal [facility] US Renalon 01-26-2024 US Renal Exam Date/Time: 01/24/2024 09:55 EDT Reason for Exam: Kidney Stone;Other (please specify) Report IMPRESSION: NEGATIVE LIMITED RENAL ULTRASOUND. EXAM: US Renal DATE: 01/24/2024 9:41 AM CLINICAL HISTORY: Kidney Stone. COMPARISON: None available. TECHNIQUE: Transabdominal ultrasound of the kidneys was performed. FINDINGS: The study is mild to moderately limited by the patient's body habitus. Both kidneys are normal in size, position and morphology, with renal cortex echogenicity within normal limits. There is no hydronephrosis, visualized nephrolithiasis, abnormal perinephric collections, cystic or solid renal masses identified. Right Kidney Length: 11.9 cm Cortex: 1.6 cm Left Kidney Length: 12.1 cm Cortex: 1.7 cm Ordering Provider: Araceli BERMUDEZ FINAL REPORT Dictated: 01/26/2024 3:20 pm Finn Rosenbaum MD Signed (Electronic Signature): 01/26/2024 3:20 pm Signed by: Finn Rosenbaum MD Transcribed by: GREGORIO Technologist: HW [facility] Consent for Treatmenton 01-07 Consent for Treatment [id number]#1.[address] [facility] Consultation Noteon 01-22-20 24 Consultation Note [id number]#[address] [facility] Consultation Note [id number]#[address] [facility] IntraOperative Documentson 0 01-08-2024 IntraOperative Documents [id number]#1.[address] [facility] Postoperative Documentson Postoperative Documents [id number]#1. 00TIFF [facility] Consent for Anesthesiaon Consent for Anesthesia [id number]#1. 00TIFF [facility] Discharge Instructionson Discharge Instructions [id number]#1. 00TIFF [facility] IntraOperative Documentson 0 01-05-2024 IntraOperative Documents [id number]#1. 00TIFF Normal [facility] IntraOperative Documents [id number]#1. 00TIFF Normal [facility] Main OR Intraoperative Recor don 01-05-2024 Main OR Intraoperative Record IntraOp Document Type FT Summary Primary Physician: Araceli BERMUDEZ MD Finalized Date/Time: 01/05/24 12:41:56 Pt. Name: DONG WHITMORE /Sex: 1950 Male Med Rec #: [id number] Physician: Araceli BERMUDEZ MD Financial #: [id number] Pt. Type: A Room/Bed: [place] [address] Admit/Disch: 01/04/24 06:41:12 - 01/04/24 12:00:26 Institution: Case Times FT Entry 1 Patient Times In Room 01/04/24 09:07:00 Out Room 01/04/24 09:47:00 Procedure Times Start 01/04/24 09:20:00 Stop 01/04/24 09:40:00 Anesthesia Times Start 01/04/24 09:07:00 Stop 01/04/24 09:47:00 Last Modified By: Sim Ling 01/04/24 09:48:14 General Comments: 01/05/24 Chart opened for charge review per Jessica Marrufo RN. [place] Case Attendance FT Entry 1 Entry 2 Entry 3 Case Attendee Gerber HOWE, Augustin BERMUDEZ MD, Sim Loja Role Performed Anesthesiologist Surgeon - Primary Music Journalist - Primary Track Worker Time In 01/04/24 09:07:00 01/04/24 09:07:00 01/04/24 09:07:00 Time Out 01/04/24 09:47:00 01/04/24 09:47:00 01/04/24 09:47:00 Procedure CYSTOSCOPY RETROGRADE CYSTOSCOPY RETROGRADE CYSTOSCOPY RETROGRADE STENT INSERTION(Right), STENT INSERTION(Right), STENT INSERTION(Right), EXTRACORPOREAL SHOCK EXTRACORPOREAL SHOCK EXTRACORPOREAL SHOCK WAVE LITHOTRIPSY(Right) WAVE LITHOTRIPSY(Right) WAVE LITHOTRIPSY(Right) Comments DR MANCIA SUPERVISING Last Modified By: Sim Ling Terry T Sweene, Terry T 01/04/24 09:55:45 01/04/24 09:55:45 01/04/24 09:55:45 Entry 4 Case Attendee Rukhsana Connors Role Performed Scrub - Primary Time In 01/04/24 09:07:00 Time Out 01/04/24 09:47:00 Procedure CYSTOSCOPY RETROGRADE STENT INSERTION(Right), EXTRACORPOREAL SHOCK WAVE LITHOTRIPSY(Right) Comments Last Modified By: Sim Ling 01/04/24 09:55:45 General Comments: FINN BRAUN - MED STUDENT WORKING WITH DR. BERMUDEZ. SCRUBBED IN AND OBSERVING. Josiane LING RN. FINN VILLEDA REP AND ESWL REP HERE FOR CASE. Josiane LING RN. Perioperative Protocols FT Pre-Care Text: Implements protective measures prior to operative or invasive procedure, confirms identity before the operative or invasive procedure, verifies operative procedure, surgical site, and laterality Entry 1 Procedure(s) CYSTOSCOPY RETROGRADE Patient Identity Birthday, ID Band STENT INSERTION(Right), Verified (select at Check, Patient EXTRACORPOREAL SHOCK least 2): Participation WAVE LITHOTRIPSY(Right) Consents / H and P Anesthesia Consent, Operative Site N/A Verified HandP, Surgery/Procedure Marking Verified Consent Surgical Site Yes Laterality Verified n/a Verified Procedure Verified Yes Correct Patient Yes Position Verified Availability Equipment, Implant, Prep Dry n/a Verified (If Medication, X-ray Applicable) PreOp Antibiotic Yes Time Out Augustin Paniagua Given Participants AIDAN Chávez MD, Anuradha Briceño Terry T, Miller, Laura C Time Out Complete 01/04/24 09:19:00 Outcomes Met? Yes Last Modified By: Sim Ling 01/04/24 09:23:29 Post-Care Text: The patient is free from signs and symptoms of injury caused by extraneous objects Allergy Information FT Pre-Care Text: Verifies allergies Entry 1 Allergies Reviewed? Yes Allergies Reviewed Self/Patient With Outcomes Met? No Last Modified By: Sim Ling 01/04/24 09:23:39 Post-Care Text: The patient received appropriate medication(s) safely administered during the perioperative period Surgical Procedures FT Entry 1 Entry 2 Procedure Description Procedure CYSTOSCOPY RETROGRADE EXTRACORPOREAL SHOCK STENT INSERTION WAVE LITHOTRIPSY Modifiers Right Right Surgeon Description CYSTOSCOPY, RIGHT CYSTOSCOPY, RIGHT RETROGRADE, RIGHT RETROGRADE, RIGHT URETEROSCOPY, RIGHT ESWL URETEROSCOPY, RIGHT ESWL Primary Procedure Yes No Primary Surgeon AIDAN SCHUSTER, Araceli BERMUDEZ MD, Araceli Treadwell Start 01/04/24 09:20:00 01/04/24 09:20:00 Stop 01/04/24 09:40:00 01/04/24 09:40:00 Anesthesia Type General General Surgical Service Urology Urology Wound Class 2 - Clean-Contaminated 1 - Clean Last Modified By: Sim Ling Terry T 01/04/24 09:56:39 01/04/24 09:56:29 General Case Data FT Pre-Care Text: Classifies surgical wound, implements aseptic technique, initiates traffic control Entry 1 Case Information OR OR 1 FT Case Level Level 3 Wound Class 2 - Clean-Contaminated Specialty Urology ASA Class 3 Preop Diagnosis KIDNEY STONE Postop Same As Preop Yes Postop Diagnosis KIDNEY STONE Outcomes Met? Yes Last Modified By: Sim Ling 01/04/24 09:24:52 Post-Care Text: The patient is free from signs and symptoms of infection Skin Assessment (Pre Procedure) FT Pre-Care Text: Implements protective measures to prevent skin/ tissue injury due to thermal or mechanical sources Evaluates for signs and symptoms of physical injury to skin and tissue Entry 1 Skin Integrity Intact, [place], Warm, and Skin (more content not included)... Normal [facility] Preoperative Documentson Preoperative Documents [id number]#1. 00TIFF [facility] Progress Note-Physicianon Progress Note-Physician Patient: DONG WHITMORE Age: 73 years Sex: Male : 1950 Associated Diagnoses: None Author: Cooper Mancia Jr, DO Postoperative Information Postoperative disposition: Postoperative disposition: To PACU. Optimetrix number: Optimetrix number [id number]. Anesthetic utilized: General. Health Status Allergies: Allergic Reactions (Selected) Severity Not Documented Cefuroxime Axetil- Uncontrollable vomiting. CeleBREX- Intolerance and unknown. Cephalosporins- Unknown. Clinoril- Intolerance and coughing. Dolobid- Intolerance. MetFORMIN- Intolerance. Naprosyn- Intolerance and unknown. Niacin- Hot flashes. NSAIDs- Intolerance and unknown. Trulicity- Intolerance. Victoza- Intolerance. Vioxx- Intolerance and unknown cause. Physical Examination Vital Signs 01/04/2024 11:45 EDT Heart Rate Monitored 56 bpm LOW SpO2 95 % 01/04/2024 11:45 EDT Respiratory Rate 16 br/min 01/04/2024 11:44 EDT Temperature Axillary 36.3 DegC 01/04/2024 11:44 EDT Systolic Blood Pressure 166 mmHg HI Diastolic Blood Pressure 80 mmHg Blood Pressure Location Left arm Mean Arterial Pressure, Monitered 109 mmHg 01/04/2024 10:24 EDT Heart Rate Monitored 52 bpm LOW SpO2 96 % 01/04/2024 10:23 EDT Systolic Blood Pressure 144 mmHg HI Diastolic Blood Pressure 77 mmHg Blood Pressure Location Right arm Mean Arterial Pressure, Monitered 99 mmHg 01/04/2024 10:23 EDT Temperature Temporal Artery 36.4 DegC SpO2 93 % 01/04/2024 10:15 EDT Temperature Axillary 36.3 DegC Heart Rate Monitored 53 bpm LOW Respiratory Rate Monitored 17 br/min Systolic Blood Pressure 125 mmHg Diastolic Blood Pressure 81 mmHg Blood Pressure Location Left arm Mean Arterial Pressure, Cuff 96 mmHg SpO2 94 % Pain Assessment: Controlled. General: Awake, Alert, Appropriate. Respiratory: Adequate air exchange. Cardiovascular: Stable, Normal peripheral perfusion. Neurological: Normal sensory function, Normal motor function. Assessment Anesthetic outcome No anesthetic complications noted. Adequate pain relief. able to void without difficulty, able to ambulate with assist, tolerating PO intake, no N/V. Review / Management Condition: Stable. Plan Transfer/Discharge: Transfer/Discharge Discharge when meets criteria ( To home ). [facility] Comment on above: Result Comment: Elec tronically Signed By: Cooper Mancia Jr, DO\.br\Date and Time Signed: 01/05/24 10:01 EDT Progress Note-Physician Patient: DONG WHITMORE Age: 73 years Sex: Male : 1950 Associated Diagnoses: None Author: Mancia Jr DO, Cooper A Preoperative Information Anesthesia Preop Info: Time patient last ate or drank 01/04/2024 00:00:00. Anesthesia history: Patient history: None. Family history+: None. Informed consent: Signed by patient. Re-evaluation prior to induction: Initial evaluation reviewed: No significant change. Review of Systems Eye: Negative except as documented in history of present illness. Ear/Nose/Mouth/Throat: Negative except as documented in history of present illness. Respiratory: Negative except as documented in history of present illness. Cardiovascular: Negative except as documented in history of present illness. Musculoskeletal: Negative except as documented in history of present illness. Neurologic: Negative except as documented in history of present illness. Health Status Allergies: Allergic Reactions (Selected) Severity Not Documented Cefuroxime Axetil- Uncontrollable vomiting. CeleBREX- Intolerance and unknown. Cephalosporins- Unknown. Clinoril- Intolerance and coughing. Dolobid- Intolerance. MetFORMIN- Intolerance. Naprosyn- Intolerance and unknown. Niacin- Hot flashes. NSAIDs- Intolerance and unknown. Trulicity- Intolerance. Victoza- Intolerance. Vioxx- Intolerance and unknown cause. Problem list: All Problems Vitamin D deficiency / SNOMED CT [id number] / Confirmed Urgency of urination / SNOMED CT 326290675 / Confirmed Type 2 diabetes mellitus with hyperglycemia, without long-term current use of insulin / ICD-10-CM E11.65 / Confirmed Type 2 diabetes mellitus with peripheral vascular disease / SNOMED CT 788510466 / Confirmed linked DM with PVD per OP CDI policy. Type 2 diabetes mellitus with stage 3a chronic kidney disease and hypertension / SNOMED CT 635184509 / Confirmed linked DM with CKD and HTN per OP CDI policy. 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 Shoulder pain / SNOMED CT 78801262 / Confirmed Renal mass / SNOMED CT 925764163 / Confirmed Psoriasis / SNOMED CT 55486998 / Confirmed PVD (peripheral vascular disease) / SNOMED CT 4685500765 / Confirmed OA (osteoarthritis) / SNOMED CT 4660332131 / Confirmed ULISES (obstructive sleep apnea) / SNOMED CT 789783970 / Confirmed SANTANA (nonalcoholic steatohepatitis) / SNOMED CT 7054147217 / Confirmed Lumbar spondylosis / SNOMED CT 963299249 / Confirmed noted in 10/16/2023 Pain Management Consult Note page 3. added per OP CDI policy. Impotence / SNOMED CT 8893409529 / Confirmed History of kidney stones / SNOMED CT 1257370554 / Confirmed Hiatal hernia / SNOMED CT 064542330 / Confirmed GERD (gastroesophageal reflux disease) / SNOMED CT 111246686 / Confirmed Nerves / SNOMED CT 2660701890 / Confirmed Primary hypertension / SNOMED CT 48307356 / Confirmed Anticoagulated / SNOMED CT 149127894 / Confirmed Complex renal cyst / SNOMED CT 6804336777 / Confirmed Chronic painful diabetic neuropathy / SNOMED CT 3171057686 / Confirmed noted in 10/16/2023 Pain Management Consult Note page 3. added per OP CDI policy. Pain, foot, right, chronic / SNOMED CT 9666306945 / Confirmed noted in 10/16/2023 Pain Management Consult Note page 3. added per OP CDI policy. Chronic bilateral low back pain without sciatica / SNOMED CT 290177248 / Confirmed Stage 3a chronic kidney disease / SNOMED CT 9376738300 / Confirmed Excessive dietary caloric intake / SNOMED CT 696617893 / Confirmed Morbid obesity with body mass index of 40.0-44.9 in adult / SNOMED CT 8402923362 / Confirmed BPH with obstruction/lower urinary tract symptoms / SNOMED CT 7708054929 / Confirmed Anxiety / SNOMED CT 91623408 / Confirmed Allergic rhinitis / SNOMED CT 288123347 / Confirmed Acquired absence of right great toe / SNOMED CT 850741541 / Confirmed added per 07/24/2023 query response. Resolved: Neuropathy / SNOMED CT 2486527100 idiopathic chronic Resolved: Hyperlipidemia / SNOMED CT 12349109 Resolved: Depressed mood / SNOMED CT 422510656 Resolved: Amputation of toe of right foot / ICD-10-CM S98.131A Resolved: BPH - benign prostatic hyperplasia / SNOMED CT 9667448009 Resolved: Anxiety disorder / SNOMED CT 064340581 Canceled: Microscopic hematuria / SNOMED CT 253880704 Canceled: Kidney stone / IMO 26412 Canceled: Hypertension / SNOMED CT 8785954210 Canceled: HLD (hyperlipidemia) / SNOMED CT 16519241 Canceled: Glycosuria / SNOMED CT 32325476 Canceled: Diabetes / SNOMED CT 806748213 Histories Procedure history: TOE AMPUTATION on 11/16/2018 at 68 Years. Cysto, Lt retrogrades, Lt stent, Ureteral cath, Lt ESWL ([id number]) on 06/07/2018 at 67 Years. Comments: 06/21/2019 14:34 EDT - Marilynn Zhang MA R Cysto, Lt retr (more content not included)... [facility] Comment on above: Result Comment: Elec tronically Signed By: Gavino Cortés DO, Cooper Nur\.br\Date and Time Signed: 01/05/24 09:04 EDT XR Abdomen 1 Viewon 01-05-20 24 XR Abdomen 1 View Exam Date/Time: 01/04/2024 06:57 EDT Reason for Exam: Kidney stone Report IMPRESSION: THERE ARE NO ACUTE CHANGES CLINICAL HISTORY: Kidney stone COMPARISON: NONE. KUB FINDINGS: There are no distended loops of bowel. There is no evidence of obstruction. Overlying bowel gas and contents limit evaluation for renal stones. There are no acute osseous changes. Ordering Provider: Araceli BERMUDEZ FINAL REPORT Dictated: 01/05/2024 8:23 am Lukasz Denny MD, V. Signed (Electronic Signature): 01/05/2024 8:23 am Signed by: Lukasz Denny MD, V. Transcribed by: GREGORIO Technologist: BARAK Technical Comments Radiation Dose: Ka,r in mGy = na DAP = na [facility] Capillary Glucose POCon 12-08 Glucose [Mass/Vol] 133 mg/dL High 55-99 [facility] Comment on above: Performed By: #### 2 [id number] #### [facility] [address] [place] [address] Consent for Procedure/Surger yon 01-04-2024 Consent for Procedure/Surgery [id number]. 00TIFF [facility] Consent for Treatmenton 12-08 Consent for Treatment [id number]#1.[address] [facility] Discharge Instructionson Discharge Instructions DONG WHITMORE :1950 Visit Date:01/04/2024 Inpatient Discharge Instructions Your Care Team Admitting Physician - Araceli BERMUDEZ MD Referring Physician - Araceli BERMUDEZ MD Reason for Your Visit KIDNEY STONE Tests Performed XR Abdomen 1 View -- Results Pending -- Please visit your patient portal for your results or contact your primary care physician. This Is Your Medications List acarbose (acarbose 25 mg oral tablet) acetaminophen-hydrocod one (acetaminophen-hydroco done 325 mg-5 mg oral tablet) buPROPion (Wellbutrin XL 300 mg/24 hours Tab-ER) doxycycline (doxycycline hyclate 100 mg Cap) losartan (losartan 50 mg Tab) metoprolol (metoprolol 50 mg ER Tab) nitroglycerin (nitroglycerin 0.4 mg sublingual Tab) omega-3 polyunsaturated fatty acids (Fish Oil 1200 mg oral capsule) pioglitazone (pioglitazone 30 mg Tab) simvastatin (simvastatin 40 mg Tab) sitagliptin (Januvia 100 mg Tab) sodium bicarbonate (sodium bicarbonate 650 mg Tab) tizanidine (tiZANidine 4 mg Tab) venlafaxine (venlafaxine 37.5 mg Tab) [Image Removed: STOP]Stop taking these medications aspirin (aspirin 81 mg oral tablet) What to do next Instructions From Your Doctor Event Name Event Result Discharge Activity Arrange for a responsible adult supervision for 24 hours, Expect mild pain, Expect minimal amount of drainage and/or bleeding Discharge Restrictions No driving, Do not operate machinery or tools, Do not make important decisions for 24 hours, Do not drink alcoholic beverages for 24 hours Discharge Diet(s) Calorie Controlled- 2000 Calorie Diet Call Your Doctor For Persistent or heavy bleeding, Temperature above 101.5 degrees Discharge Instructions Discharge Instructions Previously Scheduled Follow-Up Appointments Monday 9:45 AM EDT With: Araceli BERMUDEZ MD Where: [facility] Invalid Interpretation Code [address] [place] [address]- \.br \ Monday 9:30 AM EDT \.br\ With:\.br\ Where: [facility] Comment on above: Result Comment: Elec tronically Signed By: Ector WALKER, Rakel Nur\.br\Date and Time Signed: 01/04/24 10:37 EDT H&P Updateon 01-04-2024 H&P Update [id number]. 00TIFF [facility] Inpatient Patient Summaryon 01-04-2024 Inpatient Patient Summary [address] [address] [facility] Clinical Discharge Instructions PERSON INFORMATION Name: DONG WHITMORE PHYSICIANS Admitting Physician: Araceli BERMUDEZ MD Attending Physician: Araceli BERMUDEZ MD PCP: Haider Hickman MD Discharge Diagnosis: Comment: PATIENT EDUCATION INFORMATION Instructions: Lithotripsy, Care After Medication Leaflets: Follow up: With: Address: When: Araceli BERMUDEZ [address] [place] [address], [address], [place] [id number] Business (1) Comments: Please call my office to make arrangements for a repeat kidney ultrasound in about 2 weeks or so. We can then make an assessment of whether the stone was broken up enough. As you know by now, I did not place an internal stent because the stone seem to be much smaller than advertised on the kidney ultrasound , and this location allow me to simply treat without placing a stent. Please finish your antibiotics. Please get the kidney ultrasound within the next couple weeks for follow-up With: Address: When: [place] [address] [facility] [address] Business (1) Type Location Start Finish State URO Office Visit [facility] 03/13/2024 9:45 AM 03/13/2024 10:00 AM Confirmed FM Open [facility] 03/26/2024 2:15 PM 03/26/2024 2:30 PM Confirmed FM Medicare Wellness Subsequent [facility] 05/13/2024 9:30 AM 05/13/2024 10:30 AM Confirmed URO Office Visit [facility] [place] [place] [facility] [place] 11/06/2024 10:30 AM 11/06/2024 10:45 AM Confirmed MEDICATION LIST New Medications [facility]/pharmacy #[id number], [address], [place] [id number], [phone] acetaminophen-hydrocod one (acetaminophen-hydroco done 325 mg-5 mg oral tablet) 1 Tablets By Mouth every 4 hours as needed Pain for 2 Days. Refills: 0. doxycycline (doxycycline hyclate 100 mg Cap) 1 Capsules By Mouth every day for 5 Days. Refills: 0. Medications to Continue with No Changes Other Medications acarbose (acarbose 25 mg oral tablet) 2 Tablets By Mouth 3 times a day. buPROPion (Wellbutrin XL 300 mg/24 hours Tab-ER) 1 Tablets By Mouth every day. Refills: 3. losartan (losartan 50 mg Tab) 1.5 tab(s) Oral Daily. Refills: 4. metoprolol (metoprolol 50 mg ER Tab) 1 Tablets By Mouth 2 times a day. Refills: 1. nitroglycerin (nitroglycerin 0.4 mg sublingual Tab) 1 Tablets Sublingual every 5 minutes as needed for chest pain. Refills: 0. omega-3 polyunsaturated fatty acids (Fish Oil 1200 mg oral capsule) 1 Capsules By Mouth 2 times a day. pioglitazone (pioglitazone 30 mg Tab) 1 Tablets By Mouth every day. simvastatin (simvastatin 40 mg Tab) 1 Tablets By Mouth once a day (in the evening). Refills: 1. sitagliptin (Januvia 100 mg Tab) TAKE 1 TABLET BY MOUTH EVERY DAY. Refills: 1. sodium bicarbonate (sodium bicarbonate 650 mg Tab) 2 Tablets By Mouth 3 times a day for 90 Days. Refills: 3. tizanidine (tiZANidine 4 mg Tab) 4 Milligram By Mouth every day. Refills: 1. venlafaxine (venlafaxine 37.5 mg Tab) 1 Tablets By Mouth 2 times a day. Refills: 1. No Longer Take the Following Medications aspirin (aspirin 81 mg oral tablet) 1 Tablets By Mouth every day. Comment: [facility] Main OR PACU I Recordon 03-2 Main OR PACU I Record PACU Phase I Document Type FT Summary Primary Physician: Araceli BERMUDEZ MD Finalized Date/Time: 01/04/24 10:17:21 Pt. Name: DONG WHITMORE Boom Ann/Sex: 1950 Male Med Rec #: [id number] Physician: Araceli BERMUDEZ MD Financial #: [id number] Pt. Type: A Room/Bed: [place] [address] Admit/Disch: 01/04/24 06:41:12 - Institution: Case Times PACU I FT Pre-Care Text: Identifies barriers to communication and implements measures to provide psychological support Develops individualized plan of care, and ensures continuity of care Maintains patient's dignity and privacy, and maintains patient confidentiality Identifies and reports philosophical, cultural, and spiritual beliefs and values Identifies individual values and wishes concerning care Implements aseptic technique, and administers prescribed antibiotic therapy and immunizing agents as ordered Evaluates postoperative tissue perfusion Implements thermoregulation measures, and monitors body temperature Evaluates postoperative respiratory status Evaluates postoperative cardiac status Evaluates postoperative neurological status Assesses pain control, collaborated in initiating patient-controlled analgesia and implements alternative methods of pain control Verifies allergies, administers prescribed medications and solutions, evaluates response to medications Entry 1 In PACU I 01/04/24 09:50:00 Discharge from PACU 01/04/24 10:20:00 I Outcomes Met? Yes Last Modified By: Sangita Ross RN 01/04/24 10:17:05 Post-Care Text: The patient demonstrates knowledge of the expected response to the operative or invasive procedure The patient's care is consistent with the individualized perioperative plan of care The patient's right to privacy is maintained The patient's value system, lifestyle, ethnicity, and culture are considered, respected, and incorporated into the perioperative plan of care The patient participates in decisions affecting his or her perioperative plan of care The patient is free from signs and symptoms of infection The patient has wound/tissue perfusion consistent with or improved from baseline levels established preoperatively The patient is at or returning to normothermia at the conclusion of the immediate postoperative period The patient's respiratory function is consistent with or improved from baseline levels established preoperatively The patient's cardiovascular status is consistent with or improved from baseline levels established preoperatively The patient's cardiovascular status is consistent with or improved from baseline levels established preoperatively The patient demonstrates and/or reports adequate pain control throughout the perioperative period The patient received appropriate medication(s), safely administered during the perioperative period Acuity Level PACU I FT Entry 1 Start Time 01/04/24 09:50:00 Stop Time 01/04/24 10:20:00 Acuity Level Acuity Level I Last Modified By: Sangita Ross RN 01/04/24 10:17:17 Finalized By: Sangita Ross RN Document Signatures Signed By: Sangita Ross RN 01/04/24 10:17 [facility] Main OR PACU II Recordon Main OR PACU II Record PACU Phase II Document Type FT Summary Primary Physician: Araceli BERMUDEZ MD Finalized Date/Time: 01/04/24 12:01:26 Pt. Name: HAIM DONG Boom Ann/Sex: 1950 Male Med Rec #: [id number] Physician: Araceli BERMUDEZ MD Financial #: [id number] Pt. Type: A Room/Bed: [place] [address] Admit/Disch: 01/04/24 06:41:12 - 01/04/24 12:00:26 Institution: Case Times PACU II FT Pre-Care Text: Identifies barriers to communication and implements measures to provide psychological support and determines knowledge level Develops individualized plan of care, and ensures continuity of care Maintains patient's dignity and privacy, and maintains patient confidentiality Identifies and reports philosophical, cultural, and spiritual beliefs and values Identifies individual values and wishes concerning care administers prescribed antibiotic therapy and immunizing agents as ordered, Evaluates postoperative tissue perfusion Implements thermoregulation measures, and monitors body temperature Evaluates postoperative respiratory status Evaluates postoperative cardiac status Evaluates postoperative neurological status Assesses pain control, collaborated in initiating patient-controlled analgesia and implements alternative methods of pain control Verifies allergies, administers prescribed medications and solutions, evaluates response to medications Entry 1 In PACU II 01/04/24 10:20:00 Discharge from PACU 01/04/24 12:00:00 II Outcomes Met? Yes Last Modified By: Rakel Barney RN 01/04/24 12:00:57 Post-Care Text: The patient demonstrates knowledge of the expected response to the operative or invasive procedure The patient's care is consistent with the individualized perioperative plan of care The patient's right to privacy is maintained The patient's value system, lifestyle, ethnicity, and culture are considered, respected, and incorporated into the perioperative plan of care The patient participates in decisions affecting his or her perioperative plan of care. The patient is free from signs and symptoms of infection The patient has wound/tissue perfusion consistent with or improved from baseline levels established preoperatively The patient is at or returning to normothermia at the conclusion of the immediate postoperative period The patient's respiratory function is consistent with or improved from baseline levels established preoperatively The patient's cardiovascular status is consistent with or improved from baseline levels established preoperatively The patient's neurological status is consistent with or improved from baseline levels established preoperatively The patient demonstrates and/or reports adequate pain control throughout the perioperative period The patient received appropriate medication(s), safely administered during the perioperative period Finalized By: Rakel Barney RN Document Signatures Signed By: Rakel Barney RN 01/04/24 12:01 [facility] Main OR Preoperative Recordo n 01-04-2024 Main OR Preoperative Record PreOp Document Type FT Summary Primary Physician: Araceli BERMUDEZ MD Finalized Date/Time: 01/04/24 09:57:43 Pt. Name: DONG WHITMORE/Sex: 1950 Male Med Rec #: [id number] Physician: Araceli BERMUDEZ MD Financial #: [id number] Pt. Type: A Room/Bed: [place] [address] Admit/Disch: 01/04/24 06:41:12 - Institution: Case Times PreOp FT Pre-Care Text: Verifies consent for planned procedure, identifies individual values and wishes concerning care, includes family members in perioperative teaching Entry 1 Patient Times. In Pre Surgery 01/04/24 06:45:00 Out Pre Surgery 01/04/24 09:05:00 Outcomes Met? Yes Last Modified By: Sim Ling 01/04/24 09:57:42 Post-Care Text: The patient participates in decisions affecting his or her perioperative plan of care Finalized By: Sim Ling Document Signatures Signed By: Sim Ling 01/04/24 09:57 [facility] Monitor Recordon 01-04-2024 Monitor Record [id number]. 00TIFF [facility] Operative Reporton Operative Report Patient: DONG WHITMORE Age: 73 years Sex: Male : 1950 Associated Diagnoses: None Author: Araceli BERMUDEZ MD Postoperative Information Date/ Time: 01/04/2024 10:03:00 Postoperative Diagnosis: Right renal calculus . Performed by: Araceli Bermudez MD. Findings: Procedure: Cystoscopy Right retrograde pyelogram ESWL right upper pole renal calculus Anesthesia: General, LMA, Dr. Mancia Indications: This is a 73-year-old male with a positive history of stones. He has documentation of an 8 mm stone in the right upper pole on latest ultrasound. He has a history of prostate resection in the past. KUBs have not shown stones in the kidneys so the presumption is either uric acid. The patient understood that cystoscopy and retrograde pyelogram would be required in order to see the calculus so we would simply hit the negative shadow. He understood that secondary to the size of the stone approaching 1 cm and its upper pole location that the possibility of right ureteral stent was also there. He wishes me to proceed. He did receive preoperative antibiotics and he does have sequential compression devices in place and functional bilateral lower extremities throughout the case. Procedure: The patient was brought back to the operating room and a timeout was performed. All are in agreement with the operative plan. He is identified appropriately. After the successful induction of general anesthesia he is placed in the modified dorsolithotomy position and prepped in usual fashion Betadine solution. 2% Xylocaine jelly is placed per urethra and a well-lubricated 22 Norwegian is urethroscope with 30 degree lens then passed into the bladder. Anterior urethra is within normal limits without scar tissue. The external sphincter is intact. The prostate is wide open status post prostate resection. Upon entry into the bladder, no tumors, no stones, no diverticuli. Orifices are normal and effluxing clear urine. No suspicious lesions. A right retrograde pyelogram was then performed utilizing a 6 Norwegian open-ended ureteral catheter. The ureter is normal as is the entire kidney without hydronephrosis. There appears to be a small defect in upper lateral calyx and I feel this is the location of the stone. The ureteral catheter was placed up to the level of the right ureteropelvic junction and the scope was removed. Intermittently throughout the case gentle right retrograde pyelogram was performed to keep the stone in view. Utilizing the Marvin Lithostar lithotripter, 1500 shocks were given up to 3.2 power level per protocol. Difficult to tell whether there was good stone fragmentation or not secondary to the patient's body habitus and the fact that this may be a uric acid calculus. He tolerates it well. Upon completion of the procedure the ureteral catheter was removed and he was transferred to the rmuncie and then back to PACU in satisfactory condition, stable vital signs. Plan to be for discharge home with plans for a follow-up kidney ultrasound within the next couple weeks. Prescription sent to pharmacy for doxycycline for antibiotic prophylaxis as well as 7 pills of [place] 5/325. She was in agreement with the plan. . Estimated Blood Loss: 0 ml. Complications: None. Anesthesia type: General. [facility] Comment on above: Result Comment: Elec tronically Signed By: Araceli BERMUDEZ MD\.br\Date and Time Signed: 01/04/24 10:09 EDT Outpatient Surgery Discharge Instructionon 01-04-2024 Outpatient Surgery Discharge Instruction [place] [id number] Patient Discharge Instructions PERSON INFORMATION Name: DONG WHITMORE Date of : 1950 Current Date: 01/04/2024 10:03:23 PHYSICIANS Admitting Physician: Araceli BERMUDEZ MD Discharge Diagnosis: DONG WHITMORE has been given the following list of follow-up instructions, prescriptions, and patient education materials: PATIENT FOLLOW-UP INFORMATION Diet: Calorie Controlled- 2000 Calorie Diet Discharge Activity: Arrange for a responsible adult supervision for 24 hours, Expect mild pain, Expect minimal amount of drainage and/or bleeding Discharge Restrictions: No driving, Do not operate machinery or tools, Do not make important decisions for 24 hours, Do not drink alcoholic beverages for 24 hours Call Your Doctor For: Persistent or heavy bleeding, Temperature above 101.5 degrees IF UNABLE TO CONTACT YOUR PHYSICIAN AND YOU FEEL IT IS AN EMERGENCY, GO TO THE NEAREST EMERGENCY ROOM OR CALL 911 IHAIM DONG A, have received the attached patient education materials/instructions and have verbalized understanding: May we do a follow up call? Yes No I was present when discharge instructions were given Patient Signature Date Clinican/Nurse Signature ___ Date Follow up: With: Address: When: Araceli BERMUDEZ [address] [place] [address], [address], [place] [id number] Business (1) Comments: Please call my office to make arrangements for a repeat kidney ultrasound in about 2 weeks or so. We can then make an assessment of whether the stone was broken up enough. As you know by now, I did not place an internal stent because the stone seem to be much smaller than advertised on the kidney ultrasound , and this location allow me to simply treat without placing a stent. Please finish your antibiotics. Please get the kidney ultrasound within the next couple weeks for follow-up With: Address: When: [place] [address] [facility] [address] Business (1) Type Location Start Finish State URO Office Visit [facility] 03/13/2024 9:45 AM 03/13/2024 10:00 AM [facility] 2:15 PM 03/26/2024 2:30 PM Confirmed FM Medicare Wellness Subsequent [facility] Ruth Ann 05/13/2024 9:30 AM 05/13/2024 10:30 AM Confirmed URO Office Visit [facility] 11/06/2024 10:30 AM 11/06/2024 10:45 AM Confirmed Pharmacy Information: You may receive a survey from [employer] asking you to rate your care experience. Your feedback is important and will help us understand what we do well and how we can improve the quality of care we provide to you, your loved ones and our community. It?s an honor to serve you. Thank you for choosing [facility] HERE ARE THE MEDICATION CHANGES THAT OCCURRED DURING YOUR HOSPITAL STAY New Medications [id number], [address], [place] [id number], [phone] acetaminophen-hydrocod one (acetaminophen-hydroco done 325 mg-5 mg oral tablet) 1 Tablets By Mouth every 4 hours as needed Pain for 2 Days. Refills: 0. doxycycline (doxycycline hyclate 100 mg Cap) 1 Capsules By Mouth every day for 5 Days. Refills: 0. Medications to Continue with No Changes Other Medications acarbose (acarbose 25 mg oral tablet) 2 Tablets By Mouth 3 times a day. buPROPion (Wellbutrin XL 300 mg/24 hours Tab-ER) 1 Tablets By Mouth every day. Refills: 3. losartan (losartan 50 mg Tab) 1.5 tab(s) Oral Daily. Refills: 4. metoprolol (metoprolol 50 mg ER Tab) 1 Tablets By Mouth 2 times a day. Refills: 1. nitroglycerin (nitroglycerin 0.4 mg sublingual Tab) 1 Tablets Sublingual every 5 minutes as needed for chest pain. Refills: 0. omega-3 polyunsaturated fatty acids (Fish Oil 1200 mg oral capsule) 1 Capsules By Mouth 2 times a day. pioglitazone (pioglitazone 30 mg Tab) 1 Tablets By Mouth every day. simvastatin (simvastatin 40 mg Tab) 1 Tablets By Mouth once a day (in the evening). Refills: 1. sitagliptin (Januvia 100 mg Tab) TAKE 1 TABLET BY MOUTH EVERY DAY. Refills: 1. sodium bicarbonate (sodium bicarbonate 650 mg Tab) 2 Tablets By Mouth 3 times a day for 90 Days. Refills: 3. tizanidine (tiZANidine 4 mg Tab) 4 Milligram By Mouth every day. Refills: 1. venlafaxine (venlafaxine 37.5 mg Tab) 1 Tablets By Mouth 2 times a day. Refills: 1. No Longer Take the Following Medications aspirin (aspirin 81 mg oral tablet) 1 Tablets By Mouth every day. PATIENT EDUCATION INFORMATION Instructions: Lithotripsy, Care After This sheet gives you information about how to care for yourself after your procedure. Your health care p (more content not included)... Normal [facility] PT - Progress Noteson 2023 PT - Progress Notes [id number] 30 [id number]#[id number] 0TIFF Normal [facility] Patient Education - Texton 0 01-04-2024 Patient Education - Text Nephrology Lithotripsy, Care After This sheet gives you information about how to care for yourself after your procedure. Your health care provider may also give you more specific instructions. If you have problems or questions, contact your health care provider. What can I expect after the procedure? After the procedure, it is common to have: ? Some blood in your urine. This should only last for a few days. ? Soreness in your back, sides, or upper abdomen for a few days. ? Blotches or bruises on the area where the shock wave entered the skin. ? Pain, discomfort, or nausea when pieces (fragments) of the kidney stone move through the tube that carries urine from the kidney to the bladder (ureter). Stone fragments may pass soon after the procedure, but they may continue to pass for up to 4?8 weeks. ? If you have severe pain or nausea, contact your health care provider. This may be caused by a large stone that was not broken up, and this may mean that you need more treatment. ? Some pain or discomfort during urination. ? Some pain or discomfort in the lower abdomen or (in men) at the base of the penis. Follow these instructions at home: Medicines ? Take jizt-yqe-gzluxuj and prescription medicines only as told by your health care provider. ? If you were prescribed an antibiotic medicine, take it as told by your health care provider. Do not stop taking the antibiotic even if you start to feel better. ? Ask your health care provider if the medicine prescribed to you requires you to avoid driving or using machinery. Eating and drinking ? Drink enough fluid to keep your urine pale yellow. This helps any remaining pieces of the stone to pass. It can also help prevent new stones from forming. ? Eat plenty of fresh fruits and vegetables. ? Follow instructions from your health care provider about eating or drinking restrictions. You may be instructed to: ? Reduce how much salt (sodium) you eat or drink. Check ingredients and nutrition facts on packaged foods and beverages to see how much sodium they contain. ? Reduce how much meat you eat. ? Eat the recommended amount of calcium for your age and gender. Ask your health care provider how much calcium you should have. General instructions ? Get plenty of rest. ? Return to your normal activities as told by your health care provider. Ask your health care provider what activities are safe for you. Most people can resume normal activities 1?2 days after the procedure. ? If you were given a sedative during the procedure, it can affect you for several hours. Do not drive or operate machinery until your health care provider says that it is safe. ? Your health care provider may direct you to lie in a certain position (postural drainage) and tap firmly (percuss) over your kidney area to help stone fragments pass. Follow instructions as told by your health care provider. ? If directed, strain all urine through the strainer that was provided by your health care provider. ? Keep all fragments for your health care provider to see. Any stones that are found may be sent to a medical lab for examination. The stone may be as small as a grain of salt. ? Keep all follow-up visits as told by your health care provider. This is important. Contact a health care provider if: ? You have a fever or chills. ? You have nausea that is severe or does not go away. ? You have any of these urinary symptoms: ? Blood in your urine for longer than your health care provider told you to expect. ? Urine that smells bad or unusual. ? Feeling a strong urge to urinate after emptying your bladder. ? Pain or burning with urination that does not go away. ? Urinating more often than usual and this does not go away. ? You have a stent and it comes out. Get help right away if: ? You have severe pain in your back, sides, or upper abdomen. ? You have any of these urinary symptoms: ? Severe pain while urinating. ? More blood in your urine or having blood in your urine when you did not before. ? Passing blood clots in your urine. ? Passing only a small amount of urine or being unable to pass any urine at all. ? You have severe nausea that leads to persistent vomiting. ? You faint. Summary ? After this procedure, it is common to have some pain, discomfort, or nausea when pieces (fragments) of the kidney stone move through the tube that carries urine from the kidney to the bladder (ureter). If this pain or nausea is severe, however, you should contact your health care provider. ? Return to your normal activities as told by your health care provider. Ask your health care provider what activities are safe for you. ? Drink enough fluid to keep your urine pale yellow. This helps any remaining pieces of the stone to pass, and it can help prevent new stones from forming. ? (more content not included)... Normal [facility] Physician Referralon 024 Physician Referral [id number] 01 [id number]. 00TIFF Normal [facility] Physician Referral [id number]#1. 00TIFF Normal [facility] BMPon 12-29-2023 Anion gap [Moles/Vol] 13 mmol/L Normal 6-16 [facility] Comment on above: Performed By: #### 2 098140, [id number], [id number], [id number] #### [facility] [address] [place] [address] Calcium [Mass/Vol] 9.1 mg/dL Normal 8.9-11.1 [facility] Comment on above: Performed By: #### 2 674674, 9027175, [id number], [id number] #### [facility] [address] [place] [address] Chloride [Moles/Vol] 106 mmol/L Normal 101-111 [place] Comment on above: Performed By: #### 2 918697, 6547083, 10676634, [id number] #### [facility] [address] [place] [address] CO2 [Moles/Vol] 25 mmol/L Normal 21-31 [facility] Comment on above: Performed By: #### 2 380928, 4519314, 53208148, 07837448 #### [facility] [address] [place] [address] Creatinine [Mass/Vol] 1.2 mg/dL Normal 0.5-1.3 [facility] Comment on above: Performed By: #### 2 852458, 0776129, 64710613, 10340523 #### [facility] [address] [place] [address] Glucose [Mass/Vol] 145 mg/dL Normal 55-199 [facility] Comment on above: Performed By: #### 2 739479, 7681343, 77001788, 65775808 #### [facility] [address] [place] [address] Potassium [Moles/Vol] 3.8 mmol/L Normal 3.5-5.3 [facility] Comment on above: Performed By: #### 2 920292, 1041598, 90275970, 23640294 #### [facility] [address] [place] [address] Sodium [Moles/Vol] 140 mmol/L Normal 135-145 [facility] Comment on above: Performed By: #### 2 771632, 2695317, 78744963, 74179200 #### [facility] [address] [place] [address] Urea nitrogen [Mass/Vol] 25 mg/dL High 5-21 [facility] Comment on above: Performed By: #### 2 710890, 6123566, 62772090, 74274548 #### [facility] [address] [place] [address] Urea nitrogen/Creatinine [Mass ratio] 21 No Units High 10-20 [facility] Comment on above: Performed By: #### 2 407219, 4291467, 18831275, 10435195 #### [facility] [address] [place] [address] CBC w/ Auto Diffon 4 Basophils/100 WBC (Bld) 0.5 % Normal 0.0-2.0 [facility] Comment on above: Performed By: #### 2 909897, 9468198, 02112339, 64061827 #### [facility] [address] [place] [address] Basophils/Leukocytes Auto (Bld) [Pure # fraction] 0.0 E9/L Normal 0.0-0.2 [facility] Comment on above: Performed By: #### 2 533348, 8532125, 23512745, 23778317 #### [facility] [address] [place] [address] Eosinophils (Bld) [#/Vol] 0.3 E9/L Normal 0.0-0.5 [facility] Comment on above: Performed By: #### 2 864927, 8597330, 39412297, 98222509 #### [facility] [address] [place] [address] Eosinophils/100 WBC (Bld) 5.7 % Normal 0.0-8.0 [facility] Comment on above: Performed By: #### 2 576805, 1322381, 98619604, 47239873 #### [facility] [address] [place] [address] Erythrocyte distribution width (RBC) [Ratio] 14.6 % High 10.9-14.2 [facility] Comment on above: Performed By: #### 2 666245, 7716562, 74679491, 67357138 #### [facility] [address] [place] [address] Hematocrit (Bld) [Volume fraction] 38.3 % Normal 37.7-49.0 [facility] Comment on above: Performed By: #### 2 875576, 5079043, 55456956, 81806174 #### [facility] [address] [place] [address] Hemoglobin (Bld) [Mass/Vol] 12.8 g/dL Low 13.5-17.5 [facility] Comment on above: Performed By: #### 2 809927, 7096665, 56100180, 15179676 #### [facility] [address] [place] [address] Lymphocytes (Bld) [#/Vol] 0.9 E9/L Low 1.0-4.0 [facility] Comment on above: Performed By: #### 2 991757, 0917150, 42093077, 27694037 #### [facility] [address] [place] [address] Lymphocytes/100 WBC (Bld) 17.1 % Normal 14.0-50.0 [facility] Comment on above: Performed By: #### 2 585122, 5916490, 65341656, 90709317 #### [facility] [address] [place] [address] MCH (RBC) [Entitic mass] 28.1 pg Normal 27.0-34.0 [facility] Comment on above: Performed By: #### 2 336713, 8013832, 72302151, 58889559 #### [facility] [address] [place] [address] MCHC (RBC) [Mass/Vol] 33.4 g/dL Normal 31.4-36.0 [facility] Comment on above: Performed By: #### 2 201594, 6308535, 70611171, 95510428 #### [facility] [address] [place] [address] MCV (RBC) [Entitic vol] 84.1 fL Normal 80.0-100.0 [facility] Comment on above: Performed By: #### 2 175016, 8411886, 03099335, 80431689 #### [facility] [address] [place] [address] Monocytes (Bld) [#/Vol] 0.4 E9/L Normal 0.2-1.0 [facility] Comment on above: Performed By: #### 2 119074, 5972142, 05712271, 72460133 #### [facility] [address] [place] [address] Neutrophils (Bld) [#/Vol] 3.9 E9/L Normal 2.0-7.5 [facility] Comment on above: Performed By: #### 2 826670, 7972220, 36407460, 20997177 #### [facility] [address] [place] [address] Neutrophils/100 WBC (Bld) 69.6 % Normal 36.0-75.0 [facility] Comment on above: Performed By: #### 2 843396, 2268084, 24467721, 27813896 #### [facility] [address] [place] [address] Platelet 178.0 E9/L Normal 150.0-500.0 [facility] Comment on above: Performed By: #### 2 286582, 1039662, 23507710, 88291957 #### [facility] [address] [place] [address] Platelet mean volume (Bld) [Entitic vol] 8.4 fL Normal 6.4-10.8 [facility] Comment on above: Performed By: #### 2 554955, 3021829, 07553300, 35563324 #### [facility] [address] [place] [address] RBC (Bld) [#/Vol] 4.6 E12/L Normal 4.3-5.9 [facility] Comment on above: Performed By: #### 2 001543, 8986030, 14137063, 47211866 #### [facility] [address] [place] [address] WBC corrected for nucl RBC Auto (Bld) [#/Vol] 5.5 E9/L Normal 4.0-11.0 [facility] Comment on above: Performed By: #### 2 055149, 7830836, 59771677, 17633237 #### [facility] [address] [place] [address] Consent for Treatmenton 12-08 Consent for Treatment [id number]#1.0 0TIFF Normal [facility] PT & PTTon 12-29-2023 aPTT Coag (PPP) [Time] 35.7 second(s) Normal 25.1-36.5 [facility] Comment on above: Result Comment: Para meter 15 days - 4 weeks 1 - 5 months 6 - 11 months 1 - 5 years 6 - 10 years 11 - 17 years PTT Mean: 35.4 (27.6-45.6) Mean: 33.5 (24.8-40.7) Mean: 32.4 (25.1-40.7) Mean: 31.6 (24.0-39.2) Mean: 31.6 (26.9-38.7) Mean: 31.0 (24.6-38.4) Pediatric Reference ranges were obtained from a study by Tyson Maier et al. prepared from 1437 samples obtained at 7 different centers using the same coagulation reagent and instrumentation as [facility] [place]. Currently there are no coagulation studies available worldwide for children to 14 days, and no normal ranges. Heparin therapeutic range (represented by Anti-Factor Xa activity of 0.2 - 0.4 U/mL) corresponds to PTT of 56.6 - 109.0 sec. Performed By: #### 2 538184, 5824024, 48708701, 98749183 #### [facility] [address] [place] [address] INR Coag (PPP) [Relative time] 1.23 {INR} Invalid Interpretation Code [facility] Comment on above: Result Comment: INR results are specifically intended to assess patients stabilized on long-term Anticoagulation therapy suggested INR?s ?Less Intensive Anticoagulation? 2.0 ? 3.0 Conventional Range 3.0 ? 4.5 Performed By: #### 2 517352, 9970026, 57298189, 64901204 #### [facility] [address] [place] [address] PT Coag (PPP) [Time] 13.8 second(s) High 9.4-12.5 [facility] Comment on above: Result Comment: 15 d ays - 4 weeks 1 - 5 months 6 -11 months 1 ? 5 years 6 ? 10 years 11 -17 years Mean: 11.2 (9.5 ? 12.6) Mean: 11.0 (9.7 ? 12.8) Mean: 11.0 (9.8 ? 13.0) Mean: 11.3 (9.9 ? 13.4) Mean: 11.7 (10.0 ? 14.6) Mean: 11.8 (10.0 - 14.1) Pediatric Reference ranges were obtained from a study by Tyson Maier et al. prepared from 1437 samples obtained at 7 different centers using the same coagulation reagent and instrumentation as [facility] [place]. Currently there are no coagulation studies available worldwide for children to 14 days, and no normal ranges. Performed By: #### 2 589934, 0081454, 22737081, 60408868 #### [facility] [address] [place] [address] UA with Cult Rflxon 12-29-19 24 Color (U) Light-Yellow Normal Yellow [facility] Comment on above: Result Comment: Micr oscopic readings are only performed on those samples that meet specific criteria set forth by [facility]. Performed By: #### 4 [id number] ####[facility] [address] [place] [address] Glucose (U) [Mass/Vol] Negative Normal Negative [facility] Comment on above: Performed By: #### 4 [id number] ####[facility] [address] [place] [address] Ketones Ql (U) Negative Normal Negative [facility] Comment on above: Performed By: #### 4 [id number] ####[facility] [address] [place] [address] UA Blood Negative Normal Negative [facility] Comment on above: Performed By: #### 4 [id number] ####[facility] [address] [place] [address] UA Clarity Clear Normal Clear [facility] Comment on above: Performed By: #### 4 [id number] ####[facility] [address] [address] UA Leuk Est Negative Normal Negative [facility] Comment on above: Performed By: #### 4 [id number] ####[facility] [address] [place] [address] UA Nitrite Negative Normal Negative [facility] Comment on above: Performed By: #### 4 [id number] ####[facility] [address] [place] [address] UA pH 6.5 Invalid Interpretation Code 5.0-9.0 [facility] Comment on above: Performed By: #### 4 [id number] ####[facility] [address] [place] [address] UA Protein Trace Abnormal Negative [facility] Comment on above: Performed By: #### 4 [id number] ####[facility] [address] [place] [address] UA Spec Grav 1.021 Invalid Interpretation Code 1.005-1.030 [facility] Comment on above: Performed By: #### 4 [id number] ####[facility] [address] [facility] [place] [address] UA Urobilinogen Negative Normal Negative [facility] Comment on above: Performed By: #### 4 [id number] ####[facility] [address] [address] Urobilinogen (U) [Mass/Vol] Negative Normal Negative [facility] Comment on above: Performed By: #### 4 [id number] ####[facility] [address] [place] [address] UA Spec Desc Clean Catch Normal [facility] Comment on above: Performed By: #### 4 [id number] ####[facility] [address] [place] [address] XR Chest 2 Viewson XR Chest 2 Views Exam Date/Time: 12/29/2023 09:35 EDT Reason for Exam: P.A.T. Report [facility] [phone] IMPRESSION: No acute infiltrates or effusions, no change since previous studies. CLINICAL HISTORY: P.A.T. EXAMINATION: XR Chest 2 Views COMPARISON: Chest x-ray from 12/02/2015 FINDINGS: The cardiac silhouette is enlarged, similar to prior studies The lungs are free of infiltrates effusions or consolidations. There calcified granulomas in the right lung, similar to prior studies. There are no acute osseous changes. Ordering Provider: Cooper Mancia FINAL REPORT Dictated: 12/29/2023 10:27 am Lukasz Denny MD, V. Signed (Electronic Signature): 12/29/2023 10:27 am Signed by: Lukasz Denny MD, V. Transcribed by: GREGORIO Technologist: ANDREW Technical Comments Radiation Dose: Ka,r in mGy = na DAP = na Normal [facility] eGFRon 12-29-2023 eGFR 63 mL/min/1.73 m2 Normal >=59 [facility] Comment on above: Order Comment: Order added by Discern Expert. Performed By: #### 2 188501, 8678874, 91596304, 76932973 #### [facility] [address] [place] [address] Family Medicine Office/Clini c Noteon 12-28-2023 Family Medicine Office/Clinic Note HPI Staff Dong is a 73 year old male presenting for 3 month follow up DM, htn and mood Patient is here for follow up on hypertension. How often are you checking your blood pressure? Doesnt check BP at home What are your average readings? N/A, Not checking at home Yearly BMP: ?? Do you have any of the following symptoms? Foot Exam: UTD Eye Exam: UTD Last A1C: 7.1% 12/11/23 ( Aldo Middleton) Statin: simvastatin 40mg Follow up for Mental Status: Medication adherence- Yes, takes medication as prescribed Medication refill needed: yes the venlafaxine Suicidal thoughts-Not at this time Most recent PHQ9: 5 flu: UTD 06/15/23 questions/concerns: he's slowing down and not walking well today Needs refills of simvastatin, tizanidine, venlafaxine and metoprolol Brought lab orders that Aldo Middleton wants ( wants to get drawn here) and you can add if needed History of Present Illness - Pt presents for his usual follow up. - Today he wants to focus on getting labs and his joint pain. - Lost weight - R shoulder hurts the worst. Sleeps on it. - Ok with PT and ortho for this. Review of Systems PHQ Score Initial Depression Screen Score: 0 SCORE Physical Exam Vitals & Measurements T: 36.5 ?C(Oral) HR: 64(Peripheral) RR: 16 BP: 132/80 SpO2: 98% HT: 67 in HT: 171.10 cm WT: 125.5 kg WT: 276.1 lb BMI: 42.87 General: alert, no acute distress ENMT: oral mucosa moist, Cardiovascular: regular rate and rhythm, normal peripheral perfusion Respiratory: Lungs CTA, respirations non labored Extremities: no deformity, no trauma, Antalgic gait from knee pain Neurological: oriented x 4, LOC appropriate for age, CN II-XII intact, motor strength equal & normal bilaterally, speech normal Abdomen: Soft, Nontender, Non-distended, + BS Assessment/Plan 1. 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 - States he is well controlled - No other issues. 2. Type 2 diabetes mellitus with peripheral vascular disease (E11.51: Type 2 diabetes mellitus with diabetic peripheral angiopathy without gangrene) - As above 3. Pain, foot, right, chronic (M79.671: Pain in right foot) - Having a lot of pain in multiple joints. - Will Send to ortho for help. Then PT. 4. Chronic painful diabetic neuropathy (E11.40: Type 2 diabetes mellitus with diabetic neuropathy, unspecified) - Stable. - Continue on meds before. 5. Lumbar spondylosis (M47.816: Spondylosis without myelopathy or radiculopathy, lumbar region) - Pain today. - Continue on meds as before. 6. 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 Stable 7. Shoulder pain (M25.519: Pain in unspecified shoulder) - WIll send to ortho and PT to help. - Believe this will help with movement and continue on his weight loss journey. 8. Acquired absence of right great toe (Z89.411: Acquired absence of right great toe) - Stable. 9. BMI 40.0-44.9, adult (Z68.41: Body mass index [BMI] 40.0-44.9, adult) - BMI education given 10. Class 3 severe obesity due to excess calories with body mass index (BMI) of 40.0 to 44.9 in adult (E66.01: Morbid (severe) obesity due to excess calories) - Diet and exercise advised. 11. Nonsmoker (Z78.9: Other specified health status) - Please continue to not smoke. Total time spent preparing for the encounter, evaluating and assessing the patient, documenting the visit, and ordering appropriate follow-up work was 45 minutes. 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 Morbid obesity with body mass index of 40.0-44.9 in adult SANTANA (nonalcoholic steatohepatitis) OA (osteoarthritis) ULISES (obstructive sleep apnea) Pain, foot, right, chronic Psoriasis Renal mass Shoulder pain Stage 3a chronic kidney disease Stasis ulcer Type 2 diabetes mellitus with peripheral vascular disease 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 Type 2 diabetes mellitus with peripheral vascular disease Pain, foot, right, chronic Chronic painful diabetic neuropathy Lumbar spondylosis Major depressive disorder, 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 Shoulder pain Acquired absence of right great toe BMI 40.0-44.9, adult Class 3 severe obesity due to excess calories with body mass index (BMI) of 40.0 to 44.9 in adult Nonsmoker Your Care Team Attending Physician - Haider [place] MD Primary Care Physician - Haider [place] MD This Is Your Medications List metoprolol (metoprolol 50 mg ER Tab) simvastatin (simvastatin 40 mg Tab) tizanidine (tiZANidine 4 mg Tab) venlafaxine (venlafaxine 37.5 mg Tab) Contact prescribing physician if questions or concerns acarbose (acarbose 25 mg oral tablet) aspirin (aspirin 81 mg oral tablet) buPROPion (Wellbutrin XL 300 mg/24 hours Tab-ER) losartan (losartan 50 mg Tab) nitroglycerin (nitroglycerin 0.4 mg sublingual Tab) omega-3 polyunsaturated fatty acids (Fish Oil 1200 mg oral capsule) sitagliptin (Januvia 100 mg Tab) sodium bicarbonate (sodium bicarbonate 650 mg Tab) Procedures Performed TOE AMPUTATION (11/16/2018), [...] of tonsillectomy, Placement of stent in cardiac conduit, Stimulator. Discharge Vitals Temperature (Oral) 36.5 ?C Heart Rate (Peripheral) 64 Respiratory Rate 16 Blood Pressure 132/80 Height 171.10 cm Height 67 in Weight 125.5 kg Weight 276.1 lb BMI 42.87 What to do next Scheduled Follow-Up Appointments Monday 9:45 AM EDT With: AIDAN SCHUSTER, Araceli Treadwell Where: [facility] Invalid Interpretation Code [address] [id number]- \.br \ Monday 9:30 AM EDT \.br\ With:\.br\ Where: [facility] CMPon 12-26-2023 Albumin [Mass/Vol] 4.2 g/dL Normal 3.3-5.0 [facility] Comment on above: Performed By: #### 2 752738, 8441261, 92941750, 1525909 ####[facility] [address] [place] [address] Albumin/Globulin (S) [Mass conc ratio] 1.6 Normal 1.1-2.2 [facility] Comment on above: Performed By: #### 2 687660, 5777283, 02405318, 4428552 ####[facility] [address] [place] [address] ALP [Catalytic activity/Vol] 67 Int._Unit/L Normal 21-98 [facility] Comment on above: Performed By: #### 2 888137, 1719977, 87780532, 9931817 ####[facility] [address] [place] [address] ALT No additional P-5'-P [Catalytic activity/Vol] 20 Int._Unit/L Normal 6-46 [facility] Comment on above: Performed By: #### 2 860773, 6017883, 38210917, 2180549 ####[facility] [address] [place] [address] Anion gap [Moles/Vol] 10 mmol/L Normal 6-16 [facility] Comment on above: Performed By: #### 2 151328, 7361354, 82987471, 1191352 ####[facility] [address] [place] [address] AST [Catalytic activity/Vol] 21 Int._Unit/L Normal 5-43 [facility] Comment on above: Performed By: #### 2 126946, 7138020, 04528349, 7605206 ####[facility] [address] [place] [address] Bilirubin [Mass/Vol] 0.6 mg/dL Normal 0.0-1.1 [facility] Comment on above: Performed By: #### 2 553892, 4093636, 96345716, 2140251 ####[facility] [address] [place] [address] Calcium [Mass/Vol] 9.3 mg/dL Normal 8.9-11.1 [facility] Comment on above: Performed By: #### 2 026401, 4048263, 42574225, 7846494 ####[facility] [address] [place] [address] Chloride [Moles/Vol] 105 mmol/L Normal 101-111 [place] Comment on above: Performed By: #### 2 318641, 2213208, 62960761, 5711869 ####[facility] [address] [place] [address] CO2 [Moles/Vol] 27 mmol/L Normal 21-31 [facility] Comment on above: Performed By: #### 2 333657, 8560044, 55732961, 4441611 ####[facility] [address] [place] [address] Creatinine [Mass/Vol] 1.3 mg/dL Normal 0.5-1.3 [facility] Comment on above: Performed By: #### 2 366678, 9389176, 35218230, 9187629 ####[facility] [address] [place] [address] Globulin (S) [Mass/Vol] 2.6 g/dL Normal 1.4-4.0 [facility] Comment on above: Performed By: #### 2 465728, 3912526, 09192172, 3688436 ####[facility] [address] [place] [address] Glucose [Mass/Vol] 135 mg/dL Normal 55-199 [facility] Comment on above: Performed By: #### 2 266813, 8871967, 88627161, 5894182 ####[facility] [address] [place] [address] Potassium [Moles/Vol] 4.1 mmol/L Normal 3.5-5.3 [facility] Comment on above: Performed By: #### 2 750199, 9563464, 58305517, 6548281 ####[facility] [address] [place] [address] Protein [Mass/Vol] 6.8 g/dL Normal 6.0-7.8 [facility] Comment on above: Performed By: #### 2 333605, 9590882, 14607477, 5822493 ####[facility] [address] [place] [address] Sodium [Moles/Vol] 138 mmol/L Normal 135-145 [facility] Comment on above: Performed By: #### 2 903865, 5364795, 59114279, 4430825 ####[facility] [address] [address] Urea nitrogen [Mass/Vol] 27 mg/dL High 5-21 [facility] Comment on above: Performed By: #### 2 346615, 0686321, 02070239, 7497807 ####[facility] [address] [address] Urea nitrogen/Creatinine [Mass ratio] 21 No Units High 10-20 [facility] Comment on above: Performed By: #### 2 805845, 5599132, 75358259, 8415913 ####[facility] [address] [place] [address] Lipid Panelon 12-26-2023 Cholesterol [Mass/Vol] 118 mg/dL Low 120-200 [facility] Comment on above: Performed By: #### 2 809855, 4127702, 12291168, 3482802 ####[facility] [address] [place] [address] Cholesterol in HDL [Mass/Vol] 33 mg/dL Invalid Interpretation Code [facility] Comment on above: Result Comment: '>= 60 LOW RISK' '<= 40 HIGH RISK' Performed By: #### 2 226635, 7142524, 65846661, 8602406 ####[facility] [address] [place] [address] Cholesterol in LDL [Mass/Vol] 57 mg/dL Normal <=129 [facility] Comment on above: Performed By: #### 2 392808, 9091930, 38463132, 8180296 ####[facility] [address] [place] [address] Cholesterol in VLDL [Mass/Vol] 45 mg/dL High 7-40 [facility] Comment on above: Performed By: #### 2 110356, 0268270, 48973198, 4261324 ####[facility] [address] [place] [address] Triglyceride [Mass/Vol] 225 mg/dL High <=149 [facility] Comment on above: Performed By: #### 2 122455, 6657220, 38294943, 4668287 ####[facility] [address] [place] [address] U Microalbon 12-26-2023 Albumin DL <= 20 mg/L (U) [Mass/Vol] 5.8 mg/dL High 0.0-1.9 [facility] Comment on above: Performed By: #### 1 [id number], 79709392 ####[facility] [address] [place] [address] U Protein/Creat Ratioon 12-07 Protein/Creatinine (U) [Ratio] 20.90 mg/gm Cr Normal .00-200.00 [facility] Comment on above: Performed By: #### 1 [id number], 53443150 ####[facility] [address] [place] [address] U Creatinine 99.4 mg/dL Invalid Interpretation Code [facility] Comment on above: Performed By: #### 1 [id number], 85058561 ####[facility] [address] [place] [address] Ur Total Protein 20.8 mg/dL Invalid Interpretation Code [facility] Comment on above: Performed By: #### 1 [id number], 55934657 ####[facility] [address] [place] [address] Vit B12on 12-26-2023 Cobalamin (Vitamin B12) [Mass/Vol] 348 pg/mL Normal 50-1500 [facility] Comment on above: Performed By: #### 2 466523, 8828052, 59512987, 1284328 ####[facility] [address] [place] [address] eGFRon 12-26-2023 eGFR 57 mL/min/1.73 m2 Low >=59 [facility] Comment on above: Order Comment: Order added by Discern Expert. Performed By: #### 2 343223, 5443254, 94122977, 8484143 ####[facility] [address] [place] [address] Pre-Visit Planningon 024 Pre-Visit Planning - From: Ceci Yu To: Kristofer SCHUSTER, Haider Bee; Sent: 12/20/2023 09:56:36 EDT Subject: Pre-Visit Planning Due Date/Time: 12/20/2023 09:56:00 EDT Caller Name: DONG WHITMORE; Caller Number: H , B [phone] Hi Dr. [place]. During a pre-visit planning chart review, I noted the following documentation in the medical record: Current Problem List: Depressed mood (Other symptoms and signs involving emotional state). Current Medication List: bupropion. 09/20/2023 Office Visit Note: Depressed mood (R45.89: Other symptoms and signs involving emotional state) Patient's PHQ and LOW scores are within normal limits. We will go ahead and increase his Wellbutrin to 300 mg to help with weight. Patient increased another 4 pounds. He is up a total of 26 pounds since 08/15/2023. Some of this I do believe is due to emotional eating. Next step would be to send him to a counselor for help with emotional eating. PHQ-9 Score: =1 on 09/20/2023, =2 on 05/10/2023, and =11 on 04/27/2023. Based on your [...] feel free to contact me at extension [phone]. Thank you! 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 Normal [address] [place] [address] Consultation Noteon 12-08-19 Consultation Note [id number]#1.0 0TIFF Normal [facility] RAD - MISCon 11-14-2023 RAD - MISC [id number]#1.0 0TIFF Normal [facility] RAD - Ultrasound Reporton RAD - Ultrasound Report [id number]#1.0 0TIFF Normal [facility] RAD - Ultrasound Report [id number]#1.0 0TIFF Normal [facility] RAD - MISCon 10-30-2023 RAD - MISC [id number]#1.00 TIFF Normal [facility] RAD - MRI Reporton RAD - MRI Report [id number]#1.00 TIFF Normal [facility] Screenson 10-20-2023 Screens [id number]#1. 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 Your Care Team Attending Physician - AIDAN SCHUSTER, Araceli Treadwell Primary Care Physician - Kristofer SCHUSTER, Haider Bee This Is Your Medications List sodium [...] 2023 1:00 PM EDT With: Kristofer SCHUSTER, Haider Bee Where: [facility] Invalid Interpretation Code [address] [place] [address]- \.br \ Monday 10:30 AM EST \.br\ With: AIDAN SCHUSTER, Araceli Treadwell\.br\ Where: [facility] Patient Educationon 10-18-19 Patient Education Nephrology Dietary [...] ? 8 oz (237 mL) of milk, voroaav-dyytgmmjqvyl-k airy milk, and calcium-fortifiedfruit juice. Calcium-fortified means [...] Spinach (cooked), rhubarb, beets, sweet potatoes, and Faroese chard. ? Peanuts. ? Potato chips, greek fries, and baked potatoes with skin on. ? Nuts and nut products. ? Chocolate. ? If you regularly take a diuretic medicine, make sure to eat at least 1 or 2 servings of fruits or vegetables that are high in potassium each day. These include: ? Avocado. ? Banana. ? Waldo, prune, carrot, or tomato juice. ? Baked [...] fish oil, or vitamin B6. ? Take qdpj-kjw-sqvhrzh and prescription medicines only as told by your health care provider. These include supplements. What foods sh (more content not included)... Normal [facility] Reminderson 10-18-2023 Reminders - From: Roya Álvarez To: PREM Bermudez; Sent: 10/18/2023 15:39:39 EST Show up: 08/18/2024 15:39:00 EST Subject: Renal US Due Date/Time: 09/17/2024 15:39:00 EST Pt needs scheduled for TERRIE prior to 1 year appointment. Being done at [facility]. order placed. Normal [facility] Urology Office/Clinic Noteon 10-18-2023 Urology Office/Clinic [...] with voice recognition artificial intelligence software, specifically [employer] and or [employer] Substitutions may have occurred due to the [...] the plan Follow-up With When Contact Information AIDAN SCHUSTER, Araceli Treadwell, URL [address] [facility] [address] [place], [place] [id number]- Additional Instructions: 1 year w/ renal US Patient Education Dietary Guidelines to Help Prevent Kidney Stones IRoya, personally scribed for Dr. Bermudez on 10/18/2023 15:40:43. . Documentation recorded by the scribe, Roya Álvarez, accurately reflects the services(s) I performed and [...] body mass index of 40.0-44.9 in adult SANTANA (nonalcoholic steatohepatitis) Neuropathy OA (osteoarthritis) ULISES (obstructive sleep apnea) Psoriasis Renal mass Stage 3a chronic kidney disease Stasis ulcer Type 2 diabetes mellitus with peripheral vascular disease Type 2 diabetes mellitus with stage 3a chronic kidney disease and hypertension Urgency of urination Vitamin D deficiency Historical Amputation of toe of right foot Anxiety disorder BPH - benign pr (more content not included)... Normal [facility] Comment on above: Result Comment: [...] Suicidal thoughts-Not at this time Most recent LOW:4 Most recent PHQ:1 flu: UTD questions/concerns: needs [...] recent A1c level, as measured by his pest control operator, was 6.9%. Review of Systems PHQ [...] signs involving emotional state) Patient's PHQ and LOW scores are within normal limits. We will [...] with voice recognition artificial intelligence software, specifically [employer], [employer] and or [employer] Substitutions may have occurred due to the inherent limitations of voice recognition and artificial intelligence software. ATTESTATION: Documentation services were performed after patient or guardian consented to allow [employer] to record this visit. HEMANTH senior technical specialist and provider reviewed before signing. HEMANTH: [...] body mass index of 40.0-44.9 in adult SANTANA (nonalcoholic steatohepatitis) Neuropathy OA (osteoarthritis) ULISES (obstructive [...] under fluo (more content not included)... Normal [facility] Comment on above: Result Comment: Elec tronically Signed By: Haider [place] MD\.br\Date and Time Signed: 09/27/23 09:49 EST\.br\Electronically Co-Signed By: Sarah Louis\.br\Date and Time Co-Signed: 09/20/23 16:22 EST Ambulatory Visit Summaryon 1 11-21-2022 Ambulatory Visit Summary DONG WHITMORE :1950 Visit Date:09/20/2023 Ambulatory Visit Instructions Your Diagnosis Depressed mood BMI 40.0-44.9, adult Class 3 obesity Nonsmoker Type 2 diabetes mellitus with peripheral vascular disease ULISES (obstructive sleep apnea) Your Care Team Attending Physician - Haider [place] MD Primary Care Physician - Haider [place] MD This Is Your Medications List acarbose [...] Follow-Up Appointments Monday 2:45 PM EST With: AIDAN SCHUSTER, Araceli Treadwell Where: [facility] Invalid Interpretation Code [address] [place] [address]- \.br \ Monday 9:30 AM EDT \.br\ With:\.br\ Where: [facility] Consultation Noteon 09-18-20 23 Consultation Note [id number]#1.0 0TIFF Normal [facility] A1C with Estimated Average Gian albright 09-11-2023 HbA1c (Bld) [Mass fraction] 6.900 % High 4.3-5.6 % [facility] [employer] Other HbA1c (Bld) [Mass fraction] 151 mg/dL [facility] [employer] Other Glucose [Mass/Vol] 151 mg/dL Normal [facility] Comment on above: Order Comment: Reaso n for Exam Type 2 diabetes mellitus with diabetic chronic kidney diseas Result Comment: PERF ORMED BY: [place] [address] PATHOLOGIST VICTIM WITNESS ADMINISTRATOR CHRISTINA MOYA M.D. Performed By: #### A 1C [facility] eA #### [facility] [address] HbA1c (Bld) [Mass fraction] 6.9 % High 4.3-5.6 [facility] Comment on above: Order Comment: Reaso n for Exam Type 2 diabetes mellitus with diabetic chronic kidney diseas Result Comment: Incr eased risk for diabetes: 5.7 - 6.4 diabetes: >6.4 glycemic control for adults with diabetes: <7.0 Performed By: #### A 1C [facility] eA #### [facility] [address] [place], [place] [id number] [facility] Glucose - FINGER STICKon Glucose [Mass/Vol] 138 mg/dL [facility] [employer] [facility] Other Glucose mean value [Mass/vol ume] in Blood Estimated from glycated hemoglobinOrdered By: Aldo Middleton on 09-11-2023 Average glucose Estimated from glycated hemoglobin (Bld) [Mass/Vol] 151 mg/dL [facility] Hemoglobin A1c percentageOrd ered By: Aldo Middleton on 09-11-2023 HbA1c (Bld) [Mass fraction] 6.9 % 4.3-5.6 [facility] Comment on above: Increased risk for d iabetes: 5.7 - 6.4diabetes: >6.4glycemic control for adults with diabetes: <7.0 Consultation Noteon 09-06-20 Consultation Note [id number]#1.00 TIFF Normal [facility] Consultation Noteon 08-28-20 Consultation Note [id number]#1.00 TIFF Normal [facility] US UNI ankle/arm indiceson 1 10-24-2022 US UNI ankle/arm indices [facility] [address] [id number] Ultrasound Report Signed Patient: Dong [place] MR#: [id number] : 1950 Acct:[id number] Age/Sex: 73 / M ADM Date: 08/24/23 Loc: [facility] Room: Type: [facility] Attending Dr: Eligio Soni MD Ordering Provider: [...] Eligio Soni MD08/24/2023 3:31 PM Dictation Location: [place] [address] Tech: Britney Sotelo Transcribed By: [facility] 08/24/23 1531 Dictated By: Eligio Soni MD 08/24/23 1530 Signed By: 08/24/23 1531 Normal [facility] US venous duplex LE RTon US venous duplex LE RT [address] [address] Ultrasound Report Signed Patient: Dong [place] MR#: [id number] : 1950 Acct:[id number] Age/Sex: 73 / M ADM Date: 08/24/23 Loc: [facility] Room: Type: [facility] Attending Dr: Eligio Soni MD Ordering Provider: [...] Eligio Soni MD08/24/2023 3:31 PM Dictation Location: [place] [address] Tech: Coby Gibson Transcribed By: CIRO 08/24/23 153 Dictated By: Eligio Soni MD 08/24/23 153 Signed By: 08/24/[address] [facility] Ambulatory Visit Summaryon 1 10-21-2022 Ambulatory Visit Summary DONG WHITMORE :1950 Visit Date:08/21/2023 Ambulatory Visit Instructions Your Diagnosis Depressed mood Primary hypertension Anxiety BMI 40.0-44.9, adult Class 3 obesity Your Care Team Attending Physician - Haider [place] MD Primary Care Physician - Haider [place] MD This Is Your Medications List acarbose [...] Follow-Up Appointments Monday 2:40 PM EST With: Haider [place] MD Where: [facility] Invalid Interpretation Code [address], [address] [place] [address]- \.br \ Monday 9:30 AM EDT \.br\ With:\.br\ Where: [facility] Family Medicine Office/Clini c Noteon 08-21-2023 Family Medicine Office/Clinic Note HPI Staff Dong is a 72 year old male presenting for one month follow up mood Follow up for Mental Status: Medication adherence- Yes, takes medication as prescribed MEdication refill needed: yes Suicidal thoughts-Not at this time Most recent LOW: 4 Most recent PHQ: 2 questions/concerns: will [...] body mass index of 40.0-44.9 in adult SANTANA (nonalcoholic steatohepatitis) Neuropathy OA (osteoarthritis) ULISES (obstructive sleep apnea) Psoriasis Renal mass Stage 3a chronic kidney disease Stasis ulcer Type 2 diabetes mellitus with peripheral vascular disease Type 2 diabetes mellitus with stage 3a chronic kidney d (more content not included)... Normal [facility] Comment on above: Result Comment: Elec tronically Signed By: Kristofer SCHUSTER, Haider Bee\.br\Date and Time Signed: 08/21/23 14:16 EST Patient Educationon 08-21-20 23 Patient Education Cardiovascular Hypertension, Adult High blood [...] oz glass (more content not included)... Normal [facility] Pre-Visit Planningon 023 Pre-Visit Planning - From: Ceci Yu To: Kristofer SCHUSTER, Haider Bee; Sent: 08/17/2023 10:44:28 EST Subject: Pre-Visit Planning Due Date/Time: 08/17/2023 10:44:00 EST Caller Name: DONG WHITMORE; Caller Number: H , B [phone] Nc Dr. [place]. During a pre-visit planning chart review, I [...] feel free to contact me at extension [phone]. Thank you! Ceci Yu LPN Invalid Interpretation Code [address] [facility] Consultation Noteon 08-10-20 Consultation Note [id number]#1.0 0TIFF Normal [facility] Family Medicine Office/Clini c Noteon 07-26-2023 Family Medicine Office/Clinic Note HPI Staff Dong is a 72 year old male presenting for 3 month follow up dm, htn, anxiety Do you have any of the following symptoms? Foot Exam: UTD by sharlene Eye Exam: UTD few weeks ago Last [...] Suicidal thoughts-Not at this time Most recent LOW: 3 Most recent PHQ: 0 flu: UTD [...] continue to monitor along. Ordered: A1c POC 89492 Body Mass Index (BMI) documented 3008F Current [...] disease) - As above Ordered: A1c POC 76933 Body Mass Index (BMI) documented 3008F Current [...] stage 3a) - Stable Ordered: A1c POC 08066 Body Mass Index (BMI) documented 3008F Current [...] - No new issues Ordered: A1c POC 03931 Body Mass Index (BMI) documented 3008F Current [...] - BMI education given Ordered: A1c POC 17420 Body Mass Index (BMI) documented 3008F Current [...] last ye (more content not included)... Normal [facility] Comment on above: Result Comment: Elec tronically Signed By: Kristofer SCHUSTER, Haider Bee\.br\Date and Time Signed: 07/26/23 11:59 EDT [...] numbers. This can be done either in [place] or metric measurements. Note that charts and online BMI calculators are available to help you find your BMI quickly and easily without having to do these calculations yourself. To calculate your BMI in [place] ([place] measurements: 1. Measure your weight in [...] for Disease Control and Prevention: www.cdc.gov ? [place] [employer] Association: www.heart.org ? National Heart, Lung, and Blood [place]: www.nhlbi.nih.gov Summary ? Body mass index (BMI) is a number that is calculated from a person's weight and height. ? BMI may help estimate how much of a person's weight is composed of fat. BMI can help identify those who may be at higher risk for certain medical problems. ? BMI can be measured using [place] measurements or metric measurements. ? BMI charts are used to identify whether you are underweight, normal weight, overweight, or obese. This information is not intended to replace advice given to you by your health care provider. Make sure you discuss any questions you have with your health care provider. Document Revised: 06/17/2020 Document Reviewed: 04/24/2020 [employer] Patient Education ? [address] [facility] Physician Referralon 023 Physician Referral [id number]#1[address]TI[address] [facility] Pre-Visit Planningon 023 Pre-Visit Planning - From: Ceci Yu To: Kristofer SCHUSTER, Haider Bee; Sent: 07/24/2023 15:20:33 EDT Subject: Pre-Visit Planning Due Date/Time: 07/24/2023 15:20:00 EDT Caller Name: DONG WHITMORE; Caller Number: H , B [phone] [place] Dr[facility] [place]. During a pre-visit planning chart review, I [...] feel free to contact me at extension [phone]. Thank you! Ceci Yu LPN From: Kristofer SCHUSTER, Haider Bee To: Ceci Yu; Sent: 07/24/2023 16:58:10 EDT Subject: RE: Pre-Visit Planning Caller Name: DONG WHITMORE; Caller Number: H , B [phone] OK to add the first one. Thank you Normal [address] [place] [address] Consultation Noteon 07-19-20 Consultation Note [id number]#1.[address] [facility] Operative Reporton Operative Report [id number] 00 [id number]#1.[address] [facility] Consultation Noteon 07-03-20 23 Consultation Note [id number] 05 [id number]#1.00 CD:127 [facility] Nursing Note - Woundon 06-28 Nursing Note - Wound [id number] 090 [id number]#2. 00CD:127 [facility] Physician Referralon 023 Physician Referral [id number] 02 [id number]#1.00 CD:127 [facility] Consent for Procedure/Surger yon 06-26-2023 Consent for Procedure/Surgery [id number]#1.0 0CD:127 [facility] Consent for Treatmenton 06-09 Consent for Treatment [id number]#1.0 0CD:127 [facility] Multi-Wound Charton 06-26-20 Multi-Wound Chart [id number] 90 [id number]#1. 00CD:127 [facility] Nursing Assessment - Woundon 06-26-2023 Nursing Assessment - Wound [id number]#1. 00CD:127 [facility] Physician Orderon 06-26-2023 Physician Order [id number]#1. 00CD:127 [facility] Progress Note - Woundon 06-09 Progress Note - Wound [id number]#1. 00CD:127 [facility] Office Visiton 06-21-2023 Follow-up visit [id number] Dong Whitmore 1950 M Date Provider Department Center 06/21/2023 3848-ELAINE FISHER [facility] Family History Problem Relation Age of Onset Coronary artery disease Other Diabetes Other Family Status - Relation Status Age at Other Level of Service:61769 NC OFFICE/OUTPATIENT ESTABLISHED MOD MDM 30-39 MIN Normal [facility] Operative Reporton 3 Operative Report [id number]#1.00 CD:127 [facility] Operative Reporton 3 Operative Report [id number] 80 [id number]#1.0 0CD:127 [facility] Consultation Noteon 05-27-20 23 Consultation Note [id number] 80 [id number]#1.0 0CD:127 [facility] Nursing Assessment - Woundon 05-17-2023 Nursing Assessment - Wound [id number]#1. 00CD:127 [facility] Consent for Procedure/Surger yon 05-15-2023 Consent for Procedure/Surgery [id number]#1.0 0CD:127 [facility] Consent for Treatmenton Consent for Treatment [id number]#1.0 0CD:127 [facility] Consent to Photographon Consent to Photograph [id number]#1.0 0CD:127 [facility] Correspondence - Woundon Correspondence - Wound [id number]#1.0 0CD:127 [facility] Correspondence - Wound [id number]#1.0 0CD:127 [facility] Nursing Assessment - Woundon 08-07-2023 Nursing Assessment - Wound [id number]#1.0 0CD:127 [facility] Nursing Note - Woundon 05-15 Nursing Note - Wound [id number] 080 [id number]#1. 00CD:127 [facility] Physician Orderon 05-15-2023 Physician Order [id number]#1. 00CD:127 [facility] Progress Note - Woundon 08-0 Progress Note - Wound [id number]#1. 00CD:127 [facility] 36on 03-08-2023 36 Please let him know his kidney function is stable. Continue current medications. Follow-up as planned in 3 months. Thank you [facility] A1C HEMOGLOBINon 02-14-2023 HbA1c (Bld) [Mass fraction] 7.6 % [facility] [employer] Other Glucose - FINGER STICKon Glucose [Mass/Vol] 215 mg/dL [facility] [employer] Other HbA1c (Bld) [Mass fraction]o n 02-14-2023 A1C HEMOGLOBIN [facility] [employer] Other 36on 02-13-2023 36 BP higher than goal of <130/90. Recommend increasing his losartan to 75mg daily (1.5 tablets of his current Rx) with follow-up BMP in 2 weeks. Thanks [facility] 36on 01-23-2023 36 . [facility] Office Visiton 01-23-2023 Follow-up visit [id number] Dong Whitmore 1950 M Date Provider Department Center 01/23/2023 Y[facility] Family History Problem Relation Age of Onset Coronary artery disease Other Diabetes Other Family Status - Relation Status Age at Other Level of Service:26227 NC OFFICE/OUTPATIENT ESTABLISHED MOD MDM 30-39 MIN Reason for Visit and Comments: Cardiac Stress Test [489] Normal [facility] Telephoneon 01-23-2023 Telephone [id number] Dong Whitmore 1950 M Date Provider Department Center 01/23/2023 SebastianPAPITO FITZGERALD [facility] Family History Problem Relation Age of Onset Coronary artery disease Other Diabetes Other Family Status - Relation Status Age at Other Normal [facility] 36on 01-06-2023 36 Patient stopped by t he office during lunch hour and spoke with Yarelis from the [facility] cardiac rehab. He wanted stress [...] he needs RX for BP cuff. Normal [facility] Telephoneon 01-06-2023 Telephone [id number] Dong Whitmore 1950 M Date Provider Department Center 01/06/2023 MARY GRIFFIN [facility] Family History Problem Relation Age of Onset Coronary artery disease Other Diabetes Other Family Status - Relation Status Age at Other Normal [facility] ECHOCARDIO M/2D COMPLETEon 0 12-30-2022 ECHOCARDIO M/2D COMPLETE Patient: DONG WHITMORE. Exam Date: 12/30/2022 : 1950 Gender:M Ordering : MARY JOHNSON [employer] Admission #: [id number] Family : Order #: [id number] CLICK HERE TO VIEW EXAM ECHOCARDIOGRAM REPORT [...] Thibodeaux M.D. on 12/30/2022 at 18:49 Normal [facility] NM STRESS/REST MULTIon 12-29 NM STRESS/REST MULTI Patient: DONG WHITMORE Exam Date: 12/29/2022 : 1950 Gender:M Ordering : MARYRICARDO JOHNSON [facility] Admission #: [id number] Family : Order #: [id number] CLICK HERE TO VIEW EXAM RADIOLOGY REPORT [...] Morales M.D. on 12/30/2022 at 09:41 Normal [facility] US MAMI DOP LEG RTon [...] by: MORGAN ROJO Date: 2022-12-08 16:15 Normal [facility] Office Visiton 11-25-2022 Follow-up visit [id number] Dong Whitmore 1950 M Date Provider Department Center 11/25/2022 MARY GRIFFIN [facility] Family History Problem Relation Age of Onset Coronary artery disease Other Diabetes Other Family Status - Relation Status Age at Other Level of Service:35161 NC OFFICE/OUTPATIENT ESTABLISHED [facility] 40-54 MIN Reason for Visit and Comments: Coronary Artery Disease [187] Hypertension [967569] Hyperlipidemia [182] Normal [facility] TSHon 11-25-2022 TSH 2.370 uIU/mL Normal 0.358-3.740 [facility] Comment on above: Performed By: #### T SH #### [facility] [address] [address] [address] Eli Jarvis BNPon 11-08-2022 Natriuretic peptide B (Bld) [Mass/Vol] 122.0 pg/mL Normal <=900.0 [facility] Comment on above: Performed By: #### C MP, BNP #### [facility] [address] [address] [address] Eli Jarvis CBC AUTO DIFFon 11-08-2022 BASO # 0.1 103/ul Normal 0.0-0.1 [facility] Comment on above: Performed By: #### C BC ####[facility] [address] [address]Dr. Eli Jarvis Basophils/100 WBC (Bld) 0.7 % Normal 0.2-2.0 [facility] Comment on above: Performed By: #### C BC ####[facility] [address] [address]Dr. Eli Jarvis EO # 0.2 103/ul Normal 0.0-0.7 [facility] Comment on above: Performed By: #### C BC ####[facility] [address] [place], [place] [address]Dr. Eli Jarvis Eosinophils/100 WBC (Bld) 3.5 % Normal 0.9-7.0 [facility] Comment on above: Performed By: #### C BC ####[facility] [address] [place], [place] [address]Dr. Eli Jarvis Erythrocyte distribution width (RBC) [Ratio] 13.8 % Normal 11.0-15.0 [facility] Comment on above: Performed By: #### C BC ####[facility] [address] [place], [place] [address]Dr. Eli Jarvis Hematocrit (Bld) [Volume fraction] 42.0 % Normal 42.0-54.0 [facility] Comment on above: Performed By: #### C BC ####[facility] [address] [place], [place] [address]Dr. Eli Jarvis Hemoglobin (Bld) [Mass/Vol] 13.8 g/dL Critically low 14.0-18.0 [facility] Comment on above: Performed By: #### C BC ####[facility] [address] [place], [place] [address]Dr. Eli Jarvis IG # 0.03 10e3/ul Normal 0.00-0.03 [facility] Comment on above: Performed By: #### C BC ####[facility] [address] [place], [place] [address]Dr. Eli Jarvis IG % 0.4 % Normal 0.0-0.5 [facility] Comment on above: Performed By: #### C BC ####[facility] [address] [place], [place] [address]Dr. Eli Jarvis LYMPH # 1.3 103/ul Normal 1.2-3.8 [facility] Comment on above: Performed By: #### C BC ####[facility] [address] [address]Dr. Eli Matheus Lymphocytes/100 WBC (Bld) 18.8 % Critically low 20.5-60.0 [facility] Comment on above: Performed By: #### C BC ####[facility] [address] [address]Dr. Eli Jarvis MANUAL DIFF REQ NO Normal [facility] Comment on above: Performed By: #### C BC ####[facility] [address] [address]Dr. Sparklealine Jarvis MCH (RBC) [Entitic mass] 27.8 pg Normal 25.9-34.0 [facility] Comment on above: Performed By: #### C BC ####[facility] [address] [place], [place] [address]Dr. Eli Jarvis MCHC (RBC) [Mass/Vol] 32.9 g/dL Normal 29.9-35.2 [facility] Comment on above: Performed By: #### C BC ####[facility] [address] [place], [place] [address]Dr. Sparklealine Jarvis MCV (RBC) [Entitic vol] 84.7 fL Normal 80.0-94.0 [facility] Comment on above: Performed By: #### C BC ####[facility] [address] [place], [place] [address]Dr. Eli Jarvis MONO # 0.6 103/ul Normal 0.3-0.8 [facility] Comment on above: Performed By: #### C BC ####[facility] [address] [place], [place] [address]Dr. Eli Jarvis Monocytes/100 WBC (Bld) 8.5 % Normal 1.7-12.0 [facility] Comment on above: Performed By: #### C BC ####[facility] [address] [place], [place] [address]Dr. Eli Jarvis NEUT # 4.7 103/ul Normal 1.4-6.5 [facility] Comment on above: Performed By: #### C BC ####[facility] [address] [address]Dr. Eli Jarvis Neutrophils/100 WBC (Bld) 68.1 % Normal 43.0-75.0 [facility] Comment on above: Performed By: #### C BC ####[facility] [address] [address]Dr. Eli Jarvis Platelet mean volume (Bld) [Entitic vol] 10.3 fL Normal 9.5-13.5 [facility] Comment on above: Performed By: #### C BC ####[facility] [address] [address]Dr. Eli Jarvis PLT 189 103/ul Normal 150-450 [facility] Comment on above: Performed By: #### C BC ####[facility] [address] [address]Dr. Eli Jarvis RBC 4.96 106/ul Normal 4.70-6.10 [facility] Comment on above: Performed By: #### C BC ####[facility] [address] [address]Dr. Eli Jarvis WBC 7.0 103/ul Normal 4.0-11.0 [facility] Comment on above: Performed By: #### C BC ####[facility] [address] [address]DrSuzie Jarvis PROF 14(COMP METB)on 023 Albumin [Mass/Vol] 3.6 g/dL Normal 3.4-5.0 [facility] Comment on above: Performed By: #### C MP, BNP #### [facility] [address] [address] [address] Eli Jarvis Albumin/Globulin [Mass ratio] 1.1 {ratio} Normal [facility] Comment on above: Performed By: #### C MP, BNP #### [facility] [address] [address] [address] Eli Jarvis ALP [Catalytic activity/Vol] 90 U/L Normal 46-116 [facility] Comment on above: Performed By: #### C MP, BNP #### [facility] [address] [address] [address] Eli Jarvis ALT [Catalytic activity/Vol] 42 U/L Normal 16-63 [facility] Comment on above: Performed By: #### C MP, BNP #### [facility] [address] [address] [address] Eli Jarvis Anion gap [Moles/Vol] 13.5 mmol/L Normal [facility] Comment on above: Performed By: #### C MP, BNP #### [facility] [address] [address] [address] Eli Jarvis AST [Catalytic activity/Vol] 26 U/L Normal 15-37 [facility] Comment on above: Performed By: #### C MP, BNP #### [facility] [address] [place] [address] Dr. Eli Jarvis Bilirubin [Mass/Vol] 0.4 mg/dL Normal 0.2-1.0 [facility] Comment on above: Performed By: #### C MP, BNP #### [facility] [address] [place] [address] Dr. Eli Jarvis Calcium [Mass/Vol] 9.3 mg/dL Normal 8.5-10.1 [facility] Comment on above: Performed By: #### C MP, BNP #### [facility] [address] [place] [address] Dr. Eli Jarvis Chloride [Moles/Vol] 104 mmol/L Normal 98-107 [facility] Comment on above: Performed By: #### C MP, BNP #### [facility] [address] [place] [address] Dr. Eli Jarvis CO2 [Moles/Vol] 25.7 mmol/L Normal 21.0-32.0 [facility] Comment on above: Performed By: #### C MP, BNP #### [facility] [address] [place] [address] Dr. Eli Jarvis Creatinine [Mass/Vol] 1.32 mg/dL Critically high 0.70-1.30 [facility] Comment on above: Performed By: #### C MP, BNP #### [facility] [address] [address] [address] Eli Jarvis EGFR-AF LIBYAN >60 Normal >=60 [facility] Comment on above: Performed By: #### C MP, BNP #### [facility] [address] [address] [address] Eli Jarvis EGFR-NON AF LIBYAN 53 mL/min/1.73m2 Critically low >=60 [facility] Comment on above: Performed By: #### C MP, BNP #### [facility] [address] [address] [address] Eli Jarvis Globulin (S) [Mass/Vol] 3.3 g/dL Normal [facility] Comment on above: Performed By: #### C MP, BNP #### [facility] [address] [place] [address] Dr. Eli Jarvis Glucose [Mass/Vol] 154 mg/dL Critically high 74-106 [facility] Comment on above: Performed By: #### C MP, BNP #### [facility] [address] [address] [address] Eli Jarvis Potassium [Moles/Vol] 4.2 mmol/L Normal 3.5-5.1 [facility] Comment on above: Performed By: #### C MP, BNP #### [facility] [address] [address] [address] Eli Jarvis Protein [Mass/Vol] 6.9 g/dL Normal 6.4-8.2 [facility] Comment on above: Performed By: #### C MP, BNP #### [facility] [address] [address] [address] Eli Jarvis Sodium [Moles/Vol] 139 mmol/L Normal 136-145 [facility] Comment on above: Performed By: #### C MP, BNP #### [facility] [address] [address] [address] Eli Jarvis Urea nitrogen [Mass/Vol] 23.0 mg/dL Critically high 7.0-18.0 [facility] Comment on above: Performed By: #### C MP, BNP #### [facility] [address] [place], [place] [address] Dr. Eli Jarvis Urea nitrogen/Creatinine [Mass ratio] 17.4 mg/mg Normal [facility] Comment on above: Performed By: #### C MP, BNP #### [facility] [address] [place], [place] [address] Dr. Eli Jarvis A1C HEMOGLOBINon 11-07-2022 HbA1c (Bld) [Mass fraction] 7.6 % [employer] Other Glucose - FINGER STICKon Glucose [Mass/Vol] 172 mg/dL [employer] Other HbA1c (Bld) [Mass fraction]o n 11-07-2022 A1C HEMOGLOBIN [email or web address] Other US KIDNEYSon 2022 US KIDNEYS EXAMINATION: [...] by: MORGAN ROJO Date: 2022 18:30 Normal [facility] A1C HEMOGLOBINon 07-27-2022 HbA1c (Bld) [Mass fraction] 7.2 % [facility] Other Glucose - FINGER STICKon Glucose [Mass/Vol] 160 mg/dL [facility] Other HbA1c (Bld) [Mass fraction]o n 07-27-2022 A1C HEMOGLOBIN [email or web address] Other A1C HEMOGLOBINon 04-21-2022 HbA1c (Bld) [Mass fraction] 7.6 % [facility] Other Glucose - FINGER STICKon Glucose [Mass/Vol] 184 mg/dL [facility] Other HbA1c (Bld) [Mass fraction]o n 04-21-2022 A1C HEMOGLOBIN [email or web address] Other [employer] Creat Ratio,Uon Albumin DL <= 20 mg/L (U) [Mass/Vol] 10.6877714 mg/dL High 0.0-1.8 mg/dL [facility] Other Albumin/Creatinine DL <= 20 mg/L (U) [Mass ratio] 70.313041 mg/g High 0.0-30.0 mg/g [employer] Other Creatinine (U) [Mass/Vol] 200.4644572 mg/dL [employer] Other CBC AUTO DIFFon 04-07-2022 BASO # 0.0 103/ul Normal 0.0-0.1 [facility] Comment on above: Performed By: #### C BC #### [facility] [address] [place] [address] Dr. Eli Jarvis Basophils/100 WBC (Bld) 0.6 % Normal 0.2-2.0 [facility] Comment on above: Performed By: #### C BC #### [facility] [address] [place] [address] Dr. Eli Jarvis EO # 0.2 103/ul Normal 0.0-0.7 [facility] Comment on above: Performed By: #### C BC #### [facility] [address] [place] [address] Dr. Eli Jarvis Eosinophils/100 WBC (Bld) 2.9 % Normal 0.9-7.0 [facility] Comment on above: Performed By: #### C BC #### [facility] [address] [place] [address] Dr. Eli Jarvis Erythrocyte distribution width (RBC) [Ratio] 13.8 % Normal 11.0-15.0 [facility] Comment on above: Performed By: #### C BC #### [facility] [address] [place] [address] Dr. Eli Jarvis Hematocrit (Bld) [Volume fraction] 40.7 % Critically low 42.0-54.0 [facility] Comment on above: Performed By: #### C BC #### [facility] [address] [place] [address] Dr. Eli Jarvis Hemoglobin (Bld) [Mass/Vol] 13.3 g/dL Critically low 14.0-18.0 [facility] Comment on above: Performed By: #### C BC #### [facility] [address] [place] [address] Dr. Eli Jarvis IG # 0.04 10e3/ul Critically high 0.00-0.03 [facility] Comment on above: Performed By: #### C BC #### [facility] [address] [place] [address] Dr. Eli Jarvis IG % 0.6 % Critically high 0.0-0.5 [facility] Comment on above: Performed By: #### C BC #### [facility] [address] [place] [address] Dr. Eli Jarvis LYMPH # 1.3 103/ul Normal 1.2-3.8 [facility] Comment on above: Performed By: #### C BC #### [facility] [address] [place] [address] Dr. Eli Jarvis Lymphocytes/100 WBC (Bld) 18.7 % Critically low 20.5-60.0 [facility] Comment on above: Performed By: #### C BC #### [facility] [address] [place] [address] Dr. Eli Jarvis MANUAL DIFF REQ NO Normal [facility] Comment on above: Performed By: #### C BC #### [facility] [address] [address] [address] Eli Jarvis MCH (RBC) [Entitic mass] 28.1 pg Normal 25.9-34.0 [facility] Comment on above: Performed By: #### C BC #### [facility] [address] [address] [address] Eli Jarvis MCHC (RBC) [Mass/Vol] 32.7 g/dL Normal 29.9-35.2 [facility] Comment on above: Performed By: #### C BC #### [facility] [address] [place] [address] Dr. Eli Jarvis MCV (RBC) [Entitic vol] 86.0 fL Normal 80.0-94.0 [facility] Comment on above: Performed By: #### C BC #### [facility] [address] [place] [address] Dr. Eli Jarvis MONO # 0.4 103/ul Normal 0.3-0.8 [facility] Comment on above: Performed By: #### C BC #### [facility] [address] [place] [address] Dr. Eli Jarvis Monocytes/100 WBC (Bld) 6.2 % Normal 1.7-12.0 [facility] Comment on above: Performed By: #### C BC #### [facility] [address] [place] [address] Dr. Eli Jarvis NEUT # 4.9 103/ul Normal 1.4-6.5 [facility] [facility] Comment on above: Performed By: #### C BC #### [facility] [address] [place] [address] Dr. Eli Jarvis Neutrophils/100 WBC (Bld) 71.0 % Normal 43.0-75.0 [facility] Comment on above: Performed By: #### C BC #### [facility] [address] [place] [address] Dr. Eli Jarvis Platelet mean volume (Bld) [Entitic vol] 9.9 fL Normal 9.5-13.5 [facility] Comment on above: Performed By: #### C BC #### [facility] [address] [address] [address] Eli Jarvis PLT 184 103/ul Normal 150-450 [facility] Comment on above: Performed By: #### C BC #### [facility] [address] [address] [address] Eli Jarvis RBC 4.73 106/ul Normal 4.70-6.10 [facility] Comment on above: Performed By: #### C BC #### [facility] [address] [address] [address] Eli Jarvis WBC 6.9 103/ul Normal 4.0-11.0 [facility] Comment on above: Performed By: #### C BC #### [facility] [address] [address] [address] Eli Jarvis LIPID PROFILEon 04-07-2022 CHOL-HDL RATIO NORM SEE BELOW Normal [facility] Comment on above: Result Comment: 3.3 - 4.4 LOW RISK 4.4 - 7.1 AVERAGE RISK 7.1 - 11.0 MODERATE RISK >11.0 HIGH RISK Performed By: #### C MP, LIPID ####[facility] [address] [id number]. Eli Jarvis Cholesterol [Mass/Vol] 127 mg/dL Normal <=200 [facility] Comment on above: Performed By: #### C MP, LIPID ####[facility] [address] [id number]. Eli Jarvis Cholesterol in HDL [Mass/Vol] 36 mg/dL Critically low 40-60 [facility] Comment on above: Performed By: #### C MP, LIPID ####[facility] [address] [id number]. Eli Jarvis Cholesterol in LDL [Mass/Vol] 58.4 mg/dL Normal [facility] Comment on above: Performed By: #### C MP, LIPID ####[facility] [address] [id number]. Eli Jarvis Cholesterol.total/Ch olesterol in HDL [Mass ratio] 3.5 {ratio} Normal [facility] Comment on above: Performed By: #### C MP, LIPID ####[facility] [address] [id number]. Eli Jarvis HDL NORMAL > or = 60 mg/dl - LO W CARDIOVASCULAR RISK <40 mg/dl - HIGH CARDIOVASCULAR RISK Normal [facility] Comment on above: Performed By: #### C MP, LIPID ####[facility] [address] [id number]. Eli Jarvis LDL CALC NORMAL SEE BELOW Normal [facility] Comment on above: Result Comment: <100 mg/dl OPTIMAL 100 - 129 mg/dl NEAR OR ABOVE OPTIMAL 130 - 159 mg/dl BORDERLINE HIGH 160 - 189 mg/dl HIGH >190 mg/dl VERY HIGH Performed By: #### C MP, LIPID ####[facility] [address] [address]Dr. Eli Jarvis Triglyceride [Mass/Vol] 163 mg/dL Critically high <=150 [facility] Comment on above: Performed By: #### C MP, LIPID ####[facility] [address] [address]Dr. Eli Jarvis VLDL CALC 32.6 mg/dL Normal [facility] Comment on above: Performed By: #### C MP, LIPID ####[facility] [address] [id number]. Eli Jarvis PROF 14(COMP METB)on 022 Albumin [Mass/Vol] 3.8 g/dL Normal 3.4-5.0 [facility] Comment on above: Performed By: #### C MP, LIPID ####[facility] [address] [address]Dr. Eli Jarvis Albumin/Globulin [Mass ratio] 1.1 {ratio} Normal [facility] Comment on above: Performed By: #### C MP, LIPID ####[facility] [address] [id number]. Eli Jarvis ALP [Catalytic activity/Vol] 89 U/L Normal 46-116 [facility] Comment on above: Performed By: #### C MP, LIPID ####[facility] [address] [id number]. Eli Jarvis ALT [Catalytic activity/Vol] 43 U/L Normal 16-63 [facility] Comment on above: Performed By: #### C MP, LIPID ####[facility] [address] [id number]. Eil Jarvis Anion gap [Moles/Vol] 10.7 mmol/L Normal [facility] Comment on above: Performed By: #### C MP, LIPID ####[facility] [address] [id number]. Eli Jarvis AST [Catalytic activity/Vol] 24 U/L Normal 15-37 [facility] Comment on above: Performed By: #### C MP, LIPID ####[facility] [address] [id number]. Eli Jarvis Bilirubin [Mass/Vol] 0.2 mg/dL Normal 0.2-1.0 [facility] Comment on above: Performed By: #### C MP, LIPID ####[facility] [address] [id number]. Eli Jarvis Calcium [Mass/Vol] 9.1 mg/dL Normal 8.5-10.1 [facility] Comment on above: Performed By: #### C MP, LIPID ####[facility] [address] [id number]. Eli Jarvis Chloride [Moles/Vol] 104 mmol/L Normal 98-107 [facility] Comment on above: Performed By: #### C MP, LIPID ####[facility] [address] [id number]. Eli Jarvis CO2 [Moles/Vol] 27.5 mmol/L Normal 21.0-32.0 [facility] Comment on above: Performed By: #### C MP, LIPID ####[facility] [address] [id number]. Eli Jarvis Creatinine [Mass/Vol] 1.15 mg/dL Normal 0.70-1.30 [facility] Comment on above: Performed By: #### C MP, LIPID ####[facility] [address] [address]Dr. Eli Jarvis EGFR-AF LIBYAN >60 Normal >=60 [facility] Comment on above: Performed By: #### C MP, LIPID ####[facility] [address] [id number]. Eli Jarvis EGFR-NON AF LIBYAN >60 Normal >=60 [facility] Comment on above: Performed By: #### C MP, LIPID ####[facility] [address] [address]Dr. Eli Jarvis Globulin (S) [Mass/Vol] 3.4 g/dL Normal [facility] Comment on above: Performed By: #### C MP, LIPID ####[facility] [address] [address]Dr. Eli Jarvis Glucose [Mass/Vol] 157 mg/dL Critically high 74-106 [facility] Comment on above: Performed By: #### C MP, LIPID ####[facility] [address] [address]Dr. Eli Jarvis Potassium [Moles/Vol] 4.2 mmol/L Normal 3.5-5.1 [facility] Comment on above: Performed By: #### C MP, LIPID ####[facility] [address] [address]Dr. Eli Jarvis Protein [Mass/Vol] 7.2 g/dL Normal 6.4-8.2 [facility] Comment on above: Performed By: #### C MP, LIPID ####[facility] [address] [address]Dr. Eli Jarvis Sodium [Moles/Vol] 138 mmol/L Normal 136-145 [facility] Comment on above: Performed By: #### C MP, LIPID ####[facility] [address] [address]Dr. Eli Jarvis Urea nitrogen [Mass/Vol] 26.0 mg/dL Critically high 7.0-18.0 [facility] Comment on above: Performed By: #### C MP, LIPID ####[facility] [address] [place], [place] [address]Xi. Eli Jarvis Urea nitrogen/Creatinine [Mass ratio] 22.6 mg/mg Normal [facility] Comment on above: Performed By: #### C MP, LIPID ####[facility] [address] [place], [place] [address]Se. Eli Jarvis A1C HEMOGLOBINon 10-21-2021 HbA1c (Bld) [Mass fraction] 6.6 % [employer] Other Glucose - FINGER STICKon Glucose [Mass/Vol] 169 mg/dL [facility] Other HbA1c (Bld) [Mass fraction]o n 10-21-2021 A1C HEMOGLOBIN [employer] Other Comprehensive Metabolic Pane deann 07-29-2021 Albumin [Mass/Vol] 3.9 g/dL 3.2-5.5 [facility] Other Albumin/Globulin [Mass ratio] 1.6 {ratio} [facility] Other ALP [Catalytic activity/Vol] 63 U/L 32-92 [facility] Other ALT [Catalytic activity/Vol] 32 U/L 10-60 [facility] Other AST [Catalytic activity/Vol] 32 U/L 10-42 [facility] Other Bilirubin [Mass/Vol] 0.5 mg/dL 0.3-1.2 [facility] [employer] Other Calcium [Mass/Vol] 9.7 mg/dL 8.2-10.2 [facility] Other Chloride [Moles/Vol] 105 mmol/L 95-114 [facility] [employer] Other CO2 [Moles/Vol] 22.7 mmol/L 22.0-30.0 [facility] [employer] Other Creatinine [Mass/Vol] 1.28 mg/dL 0.64-1.27 [facility] [employer] Other Glucose [Mass/Vol] 111 mg/dL 70-100 [facility] [employer] Other Potassium [Moles/Vol] 4.1 mmol/L 3.5-5.1 [facility] [employer] Other Protein [Mass/Vol] 6.3 g/dL 6.1-7.9 [facility] [employer] Other Sodium [Moles/Vol] 139 mmol/L 136-146 [facility] [employer] Other Urea nitrogen [Mass/Vol] 23 mg/dL 9-23 [place] [employer] Other Comprehensive Metabolic Panel 55 [facility] [employer] Other Comprehensive Metabolic Panel > 60 [facility] [employer] Other Comprehensive Metabolic Panel 2.4 [facility] [employer] Other Hepatitis Acute Panelon 10-2 Hepatitis Acute Panel Negative Negative [facility] [employer] Other Hepatitis Acute Panel <0.1 0.0-0.9 [facility] [employer] Other Vital Signs Date Time Vital Sign Value Performing Clinician Facility 04-24-2024 08:50-0400 Body height 170.2 cm Chiqui Robles MD Work Phone: [facility] 04-24-2024 08:50-0400 Body mass index (BMI) [Ratio] 42.28 kg/m2 Chiqui Robles MD Work Phone: [facility] 04-24-2024 08:50-0400 Body weight 122.47 kg Chiqui Robles MD Work Phone: [facility] 04-24-2024 08:50-0400 Diastolic blood pressure 89 mm[Hg] Chiqui Robles MD Work Phone: [facility] 04-24-2024 08:50-0400 Heart rate 61 /min Chiqui Robles MD Work Phone: [facility] 04-24-2024 08:50-0400 SaO2% (BldA) [Mass fraction] 95 % Chiqui Robles MD Work Phone: [facility] 04-24-2024 08:50-0400 Systolic blood pressure 122 mm[Hg] Chiqui Robles MD Work Phone: [facility] 02-29-2024 13:41-0400 Body height 170.2 cm Herberth Araujo MD, PhD Work Phone: [facility] 02-29-2024 13:41-0400 Body mass index (BMI) [Ratio] 42.29 kg/m2 Herberth Araujo MD, PhD Work Phone: [facility] 02-29-2024 13:41-0400 Body temperature 97.39 [degF] Herberth Araujo MD, PhD Work Phone: [facility] 02-29-2024 13:41-0400 Body weight 122.47 kg Herberth Araujo MD, PhD Work Phone: [facility] 02-29-2024 13:41-0400 Diastolic blood pressure 73 mm[Hg] Herberth Araujo MD, PhD Work Phone: [facility] 02-29-2024 13:41-0400 Heart rate 62 /min Herberth Araujo MD, PhD Work Phone: [facility] 02-29-2024 13:41-0400 SaO2% (BldA) [Mass fraction] 94 % Herberth Araujo MD, PhD Work Phone: [facility] 02-29-2024 13:41-0400 Systolic blood pressure 138 mm[Hg] Herberth Araujo MD, PhD Work Phone: [facility] 02-05-2024 12:17-0400 Body weight 124.74 kg Francoise Hayder MD Work Phone: [facility] 02-05-2024 12:17-0400 Diastolic blood pressure 70 mm[Hg] Francoise Singletary MD Work Phone: [facility] 02-05-2024 12:17-0400 Heart rate 80 /min Francoise Singletary MD Work Phone: [facility] 02-05-2024 12:17-0400 Systolic blood pressure 131 mm[Hg] Francoise Singletary MD Work Phone: [facility] 09-11-2023 11:00-0500 Body height 167.64 cm Tondra Mapus Other [facility] 09-11-2023 11:00-0500 Body mass index (BMI) [Ratio] 44.91 kg/m2 Tondra Mapus Other [facility] [employer] Other 09-11-2023 11:00-0500 Body weight 126.24 kg Tondra Mapus Other [facility] [employer] Other 09-11-2023 11:00-0500 Body weight 126.23 kg MD Scarlet Johnson Work Phone: [facility] 09-11-2023 11:00-0500 Diastolic blood pressure 82 mm[Hg] Tondra Mapus Other [facility] 09-11-2023 11:00-0500 Respiratory rate 18 /min Tondra Mapus Other [facility] [employer] Other 09-11-2023 11:00-0500 SaO2% (BldA) [Mass fraction] 99 % Tondra Mapus Other [facility] [employer] Other 09-11-2023 11:00-0500 Systolic blood pressure 153 mm[Hg] Tondra Mapus Other [facility] 08-24-2023 13:45-0500 Body height 167.64 cm Eligio Zachariah Other [facility] 08-24-2023 13:45-0500 Body mass index (BMI) [Ratio] 44.22 kg/m2 Eligio Zachariah Other [employer] Other 08-24-2023 13:45-0500 Body temperature 97.4 [degF] Eligio Zachariah Other [facility] Other 08-24-2023 13:45-0500 Body weight 124.29 kg Eligio Zachariah Other [facility] Other 08-24-2023 13:45-0500 Body weight 124.28 kg MD Scarlet Johnson Work Phone: [facility] 08-24-2023 13:45-0500 Diastolic blood pressure 60 mm[Hg] Eligio Zachariah Other [facility] 08-24-2023 13:45-0500 SaO2% (BldA) [Mass fraction] 97 % Eligio Zachariah Other [facility] Other 08-24-2023 13:45-0500 Systolic blood pressure 130 mm[Hg] Eligio Soni Other [facility] 03-07-2023 10:00-0400 Body height 167.64 cm Terry Kelley Other [facility] Other 03-07-2023 10:00-0400 Body mass index (BMI) [Ratio] 43.61 kg/m2 Terry Kelley Other [facility] Other 03-07-2023 10:00-0400 Body weight 122.56 kg Terry Kelley Other [facility] Other 03-07-2023 10:00-0400 Diastolic blood pressure 70 mm[Hg] Terry Kelley Other [facility] Other 03-07-2023 10:00-0400 Respiratory rate 20 /min Terry Kelley Other [facility] Other 03-07-2023 10:00-0400 SaO2% (BldA) [Mass fraction] 96 % Terry Kelley Other [facility] Other 03-07-2023 10:00-0400 Systolic blood pressure 134 mm[Hg] Terry Kelley Other [facility] Other 02-14-2023 09:45-0400 Body height 172.72 cm Tondra Mapus Other [facility] Other 02-14-2023 09:45-0400 Body mass index (BMI) [Ratio] 41.32 kg/m2 Tondra Mapus Other [facility] Other 02-14-2023 09:45-0400 Body weight 123.29 kg Tondra Mapus Other [facility] Other 02-14-2023 09:45-0400 Diastolic blood pressure 82 mm[Hg] Tondra Mapus Other [facility] Other 02-14-2023 09:45-0400 Respiratory rate 18 /min Tondra Mapus Other [facility] Other 02-14-2023 09:45-0400 SaO2% (BldA) [Mass fraction] 97 % Aldo Middleton Other [facility] Other 02-14-2023 09:45-0400 Systolic blood pressure 157 mm[Hg] Aldo Grant[facility] Other [facility] Other 01-20-2023 12:15-0400 Body height 172.72 cm Carito Fitt Other [facility] Other 01-20-2023 12:15-0400 Body mass index (BMI) [Ratio] 40.71 kg/m2 Carito Fitt Other [facility] Other 01-20-2023 12:15-0400 Body weight 121.47 kg Carito Fitt Other [facility] Other 01-05-2023 11:15-0400 Body height 172.72 cm Terry Kelley Other [facility] Other 01-05-2023 11:15-0400 Body mass index (BMI) [Ratio] 40.96 kg/m2 Terry Kelley Other [facility] Other 01-05-2023 11:15-0400 Body weight 122.2 kg Terry Kelley Other [facility] Other 01-05-2023 11:15-0400 Diastolic blood pressure 73 mm[Hg] Terry Kelley Other [facility] Other 01-05-2023 11:15-0400 Respiratory rate 18 /min Terry Kelley Other [facility] Other 01-05-2023 11:15-0400 SaO2% (BldA) [Mass fraction] 98 % Terry Kelley Other [facility] Other 01-05-2023 11:15-0400 Systolic blood pressure 143 mm[Hg] Terry Kelley Other [facility] Other 11-24-2022 12:15-0500 Body height 172.72 cm Carito [employer] Other [facility] Other 11-24-2022 12:15-0500 Body mass index (BMI) [Ratio] 42.22 kg/m2 Carito Fitt Other [facility] Other 11-24-2022 12:15-0500 Body weight 125.96 kg Carito Fitt Other [facility] Other 11-18-2022 11:15-0500 Body height 172.72 cm Terry Kelley Other [facility] Other 11-18-2022 11:15-0500 Body mass index (BMI) [Ratio] 41.96 kg/m2 Terry Kelley Other [facility] Other 11-18-2022 11:15-0500 Body weight 125.19 kg Terry Kelley Other [facility] Other 11-18-2022 11:15-0500 Diastolic blood pressure 75 mm[Hg] Terry Kelley Other [facility] Other 11-18-2022 11:15-0500 Respiratory rate 18 /min Terry Kelley Other [facility] Other 11-18-2022 11:15-0500 SaO2% (BldA) [Mass fraction] 99 % Terry Kelley Other [facility] Other 11-18-2022 11:15-0500 Systolic blood pressure 148 mm[Hg] Terry Kimblediff Other [facility] Other 11-07-2022 10:15-0500 Body height 172.72 cm Tondra Mapus Other [facility] Other 11-07-2022 10:15-0500 Body mass index (BMI) [Ratio] 42.58 kg/m2 Tondra Mapus Other [facility] Other 11-07-2022 10:15-0500 Body weight 127.05 kg Tondra Mapus Other [facility] Other 11-07-2022 10:15-0500 Diastolic blood pressure 83 mm[Hg] Tondra Mapus Other [facility] Other 11-07-2022 10:15-0500 Respiratory rate 18 /min Tondra Mapus Other [facility] Other 11-07-2022 10:15-0500 SaO2% (BldA) [Mass fraction] 98 % Tondra Mapus Other [facility] Other 11-07-2022 10:15-0500 Systolic blood pressure 170 mm[Hg] Tondra Mapus Other [facility] Other 01-10-2023 15:00-0500 Body height 172.72 cm Carito Fitt Other [facility] Other 2022 16:15-0400 Body height 172.72 cm Carito Fitt Other [facility] Other 07-27-2022 12:00-0400 Body height 172.72 cm Tondra Mapus Other [facility] Other 07-27-2022 12:00-0400 Body mass index (BMI) [Ratio] 40.9 kg/m2 Tondra Mapus Other [facility] Other 07-27-2022 12:00-0400 Body weight 122.02 kg Tondra Mapus Other [facility] Other 07-27-2022 12:00-0400 Diastolic blood pressure 75 mm[Hg] Tondra Mapus Other [facility] Other 07-27-2022 12:00-0400 Respiratory rate 20 /min Tondra Mapus Other [facility] Other 07-27-2022 12:00-0400 SaO2% (BldA) [Mass fraction] 97 % Tondra Mapus Other [facility] Other 07-27-2022 12:00-0400 Systolic blood pressure 141 mm[Hg] Tondra Mapus Other [facility] Other 06-08-2022 10:45-0400 Body height 172.72 cm Carito Fitt Other [facility] Other 04-21-2022 12:00-0400 Body height 172.72 cm Tondra Mapus Other [facility] Other 04-21-2022 12:00-0400 Body mass index (BMI) [Ratio] 39.67 kg/m2 Tondra Mapus Other [facility] Other 04-21-2022 12:00-0400 Body weight 118.34 kg Tondra Mapus Other [facility] Other 04-21-2022 12:00-0400 Diastolic blood pressure 74 mm[Hg] Tondra Mapus Other [facility] Other 04-21-2022 12:00-0400 Respiratory rate 20 /min Tondra Mapus Other [facility] Other 04-21-2022 12:00-0400 SaO2% (BldA) [Mass fraction] 97 % Tondra Mapus Other [facility] Other 04-21-2022 12:00-0400 Systolic blood pressure 143 mm[Hg] Tondra Mapus Other [facility] Other 10-21-2021 12:00-0500 Body height 172.72 cm Tondra Mapus Other [facility] Other 10-21-2021 12:00-0500 Body mass index (BMI) [Ratio] 40.14 kg/m2 Tondra Mapus Other [facility] Other 10-21-2021 12:00-0500 Body weight 119.75 kg Tondra Mapus Other [facility] Other 10-21-2021 12:00-0500 Diastolic blood pressure 78 mm[Hg] Tondra Mapus Other [facility] Other 10-21-2021 12:00-0500 Respiratory rate 20 /min Tondra Mapus Other [facility] Other 10-21-2021 12:00-0500 SaO2% (BldA) [Mass fraction] 97 % Tondra Mapus Other [facility] Other 10-21-2021 12:00-0500 Systolic blood pressure 147 mm[Hg] Tondra Mapus Other [facility] Other 07-21-2021 15:45-0400 Body height 172.72 cm Morgan Kunz Other [facility] Other 07-21-2021 15:45-0400 Body mass index (BMI) [Ratio] 38.77 kg/m2 Morgan Kunz Other [facility] Other 07-21-2021 15:45-0400 Body weight 115.67 kg Morgan Kunz Other [facility] Other 12-14-2017 15:17-0500 Body height 170.18 cm MD Scarlet Johnson Work Phone: [facility] Encounters Encounter Date Encounter Type Care Provider Facility Start: 11-06-2024 ambulatory Araceli BERMUDEZ Facility :[facility] Start: 07-17-2024 ambulatory Araceli BERMUDEZ Facility :[facility] Start: 05-23-2024 ambulatory Chiqui chapa MD Work Phone: [facility] Comment on above: taking memantine HCL Start: 05-22-2024 End: 05-22-2024 ambulatory DAVID ACOSTA Facility:[facility] Jocelyn adkinse Start: 05-13-2024 End: 05-13-2024 ambulatory MD Haider Hickman Facility: [facility] Start: 05-09-2024 End: 05-09-2024 ambulatory ANDREA AGUILAR Not Available Start: 05-07-2024 ambulatory Morgan Trinidad Therapist Work Phone: Pain Recovery Comment on above: next step, resources Start: 05-07-2024 E-mail encounter fro m caregiver Morgan Trinidad Therapist Work Phone: [facility] Start: 05-06-2024 End: 05-06-2024 [facility] Morgan Trinidad Therapist Work Phone: Pain Recovery Comment on above: Adjustment disorder with depressed mood (Primary Dx); Complex regional pain syndrome type II of right lower limb; Chronic toe pain, right foot Start: 04-24-2024 End: 04-24-2024 ambulatory HERBERTH ARAUJO Facility:[facility] Start: 04-24-2024 End: 04-24-2024 Patient encounter procedure Chiqui Robles MD Work Phone: Neurology Pain Comment on above: Adjustment disorder with depressed mood (Primary Dx); Complex regional pain syndrome type II of right lower limb; Chronic toe pain, right foot; Class 3 severe obesity with serious comorbidity and body mass index (BMI) of 40.0 to 44.9 in adult, unspecified obesity type (HCC) Start: 04-23-2024 End: 04-23-2024 ambulatory Haider Hickman Facility: [facility] Start: 04-03-2024 End: 04-03-2024 ambulatory HERBERTH ARAUJO Facility:[facility] Start: 03-26-2024 End: 03-26-2024 ambulatory MD Haider Hickman Facility:[facility] Garrett shira Start: 03-19-2024 Telephone encounter Herberth meyers MD, PhD Work Phone: Pain Management Comment on above: Nurse Triage Call Start: 03-08-2024 End: 03-08-2024 ambulatory Haider Hickman Facility:[facility] [place] [place] Start: 03-07-2024 End: 03-07-2024 ambulatory MD Haider Hickman Facility:[facility] Jocelyn silva Start: 02-29-2024 End: 02-29-2024 ambulatory HERBERTH ARAUJO Facility:[facility] Start: 02-29-2024 End: 02-29-2024 Patient encounter procedure Herberth Araujo MD, PhD Work Phone: Pain Management Comment on above: Chronic toe pain, ri ght foot (Primary Dx); Painful diabetic neuropathy (HCC); Dermatitis of lower extremity; Complex regional pain syndrome type II of right lower limb; Class 3 severe obesity with serious comorbidity and body mass index (BMI) of 40.0 to 44.9 in adult, unspecified obesity type (HCC) Start: 02-22-2024 End: 02-22-2024 ambulatory ANDREA AGUILAR Not Available Start: 02-06-2024 Telephone encounter Francoise hemphill MD Work Phone: Pain Management Start: 02-05-2024 End: 02-05-2024 ambulatory FRANCOISE SINGLETARY Facility:[facility] Start: 02-05-2024 End: 02-05-2024 Patient encounter procedure Francoise Singletary MD Work Phone: Pain Management Comment on above: Chronic toe pain, ri ght foot (Primary Dx); Painful diabetic neuropathy (HCC); Class 3 severe obesity with serious comorbidity and body mass index (BMI) of 40.0 to 44.9 in adult, unspecified obesity type (HCC) Start: 01-24-2024 End: 01-24-2024 ambulatory Araceli BERMUDEZ Facility:[facility] [place] Start: 01-22-2024 End: 01-22-2024 ambulatory MACY MCPHERSON Not Available Start: 01-04-2024 End: 01-04-2024 ambulatory Araceli BERMUDEZ Facility:[facility] [place] Start: 01-03-2024 End: 01-03-2024 ambulatory MIHIR PARISI Not Available Start: 12-29-2023 End: 12-29-2023 ambulatory Araceli BERMUDEZ Facility:[facility] [place] Start: 12-26-2023 End: 12-26-2023 ambulatory MD Haider Hickman Facility:[facility] [place] Start: 12-14-2023 End: 12-14-2023 ambulatory ANDREA AGUILAR Not Available Start: 12-04-2023 End: 12-05-2023 ambulatory Miguelangel Mac MD Facility: [facility] Start: 10-18-2023 End: 10-18-2023 ambulatory Araceli Mile BERMUDEZ Facility: [place] Start: 10-16-2023 End: 10-17-2023 ambulatory Miguelangel Mac MD Facility:[facility] Start: 10-05-2023 End: 10-05-2023 ambulatory ANDREA AGUILAR Not Available Start: 09-25-2023 End: 09-26-2023 ambulatory Miguelangel Mac MD Facility:[facility] Start: 09-20-2023 End: 09-20-2023 ambulatory MD Haider Hickman Facility:[facility] Start: 09-12-2023 End: 09-12-2023 ambulatory Tondra Mapus Other [facility] Other Start: 09-12-2023 Telephone encounter Tondra Mapus [facility] Start: 09-11-2023 (DM) Diabetes Tondra Mapus [facility] Start: 09-11-2023 End: 09-12-2023 ambulatory MD Scarlet Johnson Work Phone: [facility] [employer] Other Start: 09-11-2023 End: 09-11-2023 Discharged Recurring MD Scarlet Johnson Work Phone: [facility] Work Phone: Start: 09-11-2023 End: 09-11-2023 Patient encounter procedure MD Scarlet Johnson Work Phone: [facility] Work Phone: Start: 08-24-2023 End: 08-24-2023 Patient encounter procedure MD Scarlet Johnson Work Phone: [facility] Start: 08-24-2023 End: 08-24-2023 ambulatory MD Scarlet Johnson Work Phone: [facility] Work Phone: Start: 08-24-2023 Office outpatient ne w 60 minutes Eligio Zachariah [facility] Start: 08-24-2023 End: 08-24-2023 Patient encounter procedure MD Scarlet Johnson Work Phone: [facility] Work Phone: Start: 08-21-2023 End: 08-21-2023 ambulatory MD Haider Hickman Facility:[facility] Garrett shira Start: 07-26-2023 End: 07-26-2023 ambulatory MD Haider Hickman Facility:[facility] Garrett shira Start: 06-27-2023 ambulatory MD Haider Hickman Facility :[facility] Start: 06-26-2023 End: 06-26-2023 ambulatory Kaleb Mallory Facility:[facility] [place] [place] Start: 06-21-2023 End: 06-21-2023 [facility] Start: 06-19-2023 End: 06-20-2023 ambulatory [facility] Start: 06-14-2023 End: 06-14-2023 ambulatory Tondra Mapus Other [facility] [employer] Other Start: 06-14-2023 Telephone encounter Tondra Mapus [facility] Start: 06-09-2023 End: 06-09-2023 ambulatory Carito Frandyjosiane Other [facility] [employer] Other Start: 06-09-2023 Nursing evaluation o f patient and report Carito [facility] Start: 06-09-2023 Registered Recurring MD Scarlet franks Work Phone: [facility] Work Phone: Start: 06-05-2023 End: 06-06-2023 ambulatory Mgiuelangel Mac MD Facility:[facility] Start: 05-31-2023 End: 05-31-2023 ambulatory Tondra Mapus Other [facility] Other Start: 05-31-2023 Telephone encounter Tondra Emi [facility] Start: 05-22-2023 End: 05-23-2023 ambulatory Miguelangel Mac MD Facility:[facility] Start: 05-15-2023 End: 05-15-2023 ambulatory Kaleb Mallory Facility:[facility] [place] [place] Start: 03-07-2023 Follow-up encounter Terry moreno [facility] Start: 03-07-2023 End: 03-08-2023 ambulatory Terry Kelley [place] [employer] Other Start: 02-17-2023 End: 02-17-[address] JOVITA WOODARD . Facility: Start: 02-14-2023 (DM) Diabetes Tondra Emi [facility] Start: 02-14-2023 End: 02-14-2023 ambulatory Tondra Mapus Other [facility] Other Start: 01-23-2023 End: 01-23-2023 ambulatory [facility] Start: 01-20-2023 ([facility] RD FU) [facility] F/ U Registerd Director Epidemiology Carito [facility] Start: 01-20-2023 End: 01-20-2023 ambulatory Carito West Other [facility] Other Start: 01-05-2023 End: 01-05-2023 ambulatory Terry Kelley Other [facility] Other Start: 01-05-2023 Follow-up encounter Terry moreno [...] DR TERRY KELLEY Facility:[facility] Start: 11-[facility]-20[facility] Start: 11-24-2022 ([facility] WMNI) [facility] Initial Provider Carito Beaevrs [facility] Start: 11-24-2022 End: 11-24-2022 ambulatory Carito West Other [facility] Other Start: 11-22-2022 End: 11-22-2022 ambulatory Tondra Mapus Other [facility] Other Start: 11-22-2022 Nursing evaluation o f patient and report [facility] Start: 11-18-2022 End: 11-18-2022 ambulatory Terry Kelley Other [facility] Other Start: 11-18-2022 Nutrition therapy Terry Kelley [facility] Start: 11-08-2022 End: 11-09-[address] SCARLET JOHNSON . Facility:[facility] Start: 11-07-2022 (DM) Diabetes Tondra Emi [facility] Start: 11-07-2022 End: 11-07-2022 ambulatory Tondra Mapus Other [facility] Other Start: 10-18-2022 (RD) [employer] [facility] Start: 10-18-2022 End: 10-18-2022 ambulatory Carito West Other [facility] Other Start: 08-18-2022 End: 08-19-[address] BRITTNY MORALES Facility:[facility] Start: 2022 ([facility] DB FU) [facility] Diabetes F/U Carito [facility] Start: 2022 End: 08-11-[address] ARACELI BERMUDEZ [place] [facility] Other Start: 07-29-2022 End: 07-30-[address] SCARLET JOHNSON . Facility:[facility] Start: 07-27-2022 (DM) Diabetes Tondra Mapus [facility] Start: 07-27-2022 End: 07-27-2022 ambulatory Tondra Mapus Other [facility] Other Start: 06-08-2022 (Director Epidemiology) Director Epidemiology [facility] Start: 06-08-2022 End: 06-08-2022 ambulatory Carito West Other [facility] Other Start: 04-21-2022 (DM) Diabetes Tondra Mapus [facility] Start: 04-21-2022 End: 04-21-2022 ambulatory Tondra Mapus Other [facility] Other Start: 04-21-2022 Telephone encounter Tondra Mapus [facility] Start: 04-07-2022 End: 04-08-[address] SCARLET JOHNSON . Facility:[facility] Start: 10-21-2021 (DM) Diabetes Tondra Mapus [facility] Start: 10-21-2021 End: 10-21-2021 ambulatory Tondra Mapus Other [facility] Other Start: 07-21-2021 Office outpatient ne w 45 minutes Morgan Kunz [facility] Procedures Date Procedure Procedure Detail Performing Clinician Start: 08-24-2023 Duplex scan of lower limb veins MD Scarlet Johnson Work Phone: Plan of Treatment Date Care Activity Detail Author Start: 05-15-2025 ambulatory Ambulatory Facility:[facility] Start: 09-24-2024 ambulatory Ambulatory Facility:[facility] Start: 08-14-2024 End: 08-14-2024 Patient encounter procedure 08/14/2024 10:00 AM EST Office Visit Neurology Pain [address] [place] [address] Chiqui Robles MD [address] [id number] 1 Month Follow Up Neurology Pain Comment on above: 1 Month Follow Up Start: 06-09-2024 Influenza vaccination [facility] Start: 06-07-2024 End: 06-07-2024 ambulatory 06/07/2024 12:30 PM EDT [facility] [address] [place] [address] Britney Rodriguez, PhD [address] [id number] [facility] Comment on above: [facility] Start: 05-06-2024 End: 05-06-2024 ambulatory 05/06/2024 9:00 AM EDT [facility] [address] [place] [address] Morgan Trinidad, Therapist [address] [place] [address] PA[facility] Pain Recovery Comment on above: PAIN PSYCH Start: 04-17-2024 End: 04-17-2024 Patient encounter procedure 04/17/2024 10:00 AM EDT Office Visit Pain Management [address] [place] [address] Eufemia Ortiz, PA-C [address] [place] [address] SUTURAL REMOVAL Pain Management Comment on above: SUTURAL REMOVAL Start: 04-03-2024 End: 04-03-2024 Admission to same day surgery center 04/03/2024 10:00 AM EDT - 04/03/2024 11:05 AM EDT Surgery Pain Management [address] [id number] Herberth Araujo MD, PhD [address] [place] [address] Right L4 and L5 DRG Trial Pain Management Comment on above: Right L4 and L5 DRG Trial Start: 04-03-2024 End: 04-03-2024 Prq impltj nstim electrode array epidural PERCUTANEOUS IMPLANT LEAD NEUROSTIM EPIDURAL TRIAL Chronic toe pain, right foot Complex regional pain syndrome type II of right lower limb 04/03/2024 10:00 AM EDT [facility] Start: 04-03-2024 Subsequent hospital visit by physician 04/03/2024 10:00 AM EDT Hospital Encounter Pain Management [address] [place] [address] Herberth Araujo MD, PhD [address] [place] [address] Chronic toe pain, right foot [M79.674, G89.29], Complex regional pain syndrome type II of right lower limb [G57.71] Pain Management Comment on above: Chronic toe pain, ri ght foot [M79.674, G89.29], Complex regional pain syndrome type II of right lower limb [G57.71] Start: 10-09-2023 Advance Directive Discussion Advance Directive Discussion [facility] Start: 10-09-2023 Behavioral Health Screening Behavioral Health Screening [facility] Start: 06-09-2023 Covid-19 Vaccine ( season) Covid-19 Vaccine ( season) [facility] Start: 2014 Pneumococcal Vaccine : 65+ (1 of 1 - PCV) Pneumococcal Vaccine: 65+ (1 of 1 - PCV) [facility] Start: 2009 RSV Vaccine (1 - 1-d ose 60+ series) RSV Vaccine (1 - 1-dose 60+ series) [facility] Start: 1999 Shingrix Vaccine (1 of 2) Shingrix Vaccine (1 of 2) [facility] Start: 1994 Diabetes Screening Diabetes Screenin g [facility] Start: 1994 Screening for malign ant neoplasm of colon [facility] Start: 1984 Lipid panel Lipid Screening [facility] Start: 1968 Urine microalbumin profile DTaP,Tdap,Td Vaccine (1 - Tdap) [facility] Start: 1967 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 Annual PCP Team Chronic Disease Visit [facility] Start: 1967 Anxiety Screening Anxiety Screening [facility] Start: 1967 Depression Screening Depression Scre ening [facility] Start: 1967 Hepatitis B surface antibody level LDL Cholesterol [facility] Start: 1967 Hepatitis C screening Hepatitis C Sc ang [facility] Start: 1959 Diabetic foot examination Diabetic Foot Exam [facility] Start: 1959 Glaucoma screening Dilated Retinal E xam [facility] Start: 1959 Hepatitis B screening Urine Albumin:Creatinine Ratio [facility] Start: 1955 Pneumococcal Vaccine : 65+ (1 of 2 - PCV) Pneumococcal Vaccine: 65+ (1 of 2 - PCV) [facility] Start: 1954 Hemoglobin A1c measurement HbA1C [facility] Immunizations Immunization Date Immunization Notes Care Provider Margarita sunshine 12-30-2020 COVID-19 Vaccine Mod gino - Documentation Purposes Only Morgan Kunz Other [facility] 12-02-2020 COVID-19 Vaccine Mod gino - Documentation Purposes Only Morgan Kunz Other [facility] Payers Date Payer Category Payer Unknown 2017 Self-pay [id number] 2017 Unknown [id number] 2012 Medicare 1960 Medicare [id number] 2.1 [id number] 1959 Unknown [id number] 2. 16.840.1.497985.19 1949 Unknown [id number] 2.16.84 0.1.429835.3.579.2.593 1949 Unknown [id number] 2.16.84 0.1.280702.3.579.2.593 1949 Unknown [id number] 2.16.84 0.1.945246.3.579.2.593 1949 Unknown [id number] 2.16.84 0.1.988822.3.579.2.593 1949 Unknown [id number] 2.16.84 0.1.718597.3.579.2.593 1949 Unknown [id number] 2.16.84 0.1.929715.3.579.2.593 1949 Unknown [id number] 2.16.84 0.1.394091.3.579.2.593 1949 Unknown [id number] 2.16.84 0.1.977824.3.579.2.593 1949 Unknown [id number] 2.16.84 0.1.742173.3.579.2.593 1949 Unknown [id number] 2.16.84 0.1.035142.3.579.2.593 1949 Unknown [id number] 2.16.84 0.1.166997.3.579.2.593 1949 Unknown [id number] 2.16.84 0.1.631987.3.579.2.593 1949 Unknown [id number] 2.16. 840.1.861470.3.579.2.196 1949 Unknown [id number] 2.16. 840.1.139551.3.579.2.196 1949 Unknown [id number] 2.16. 840.1.154221.3.579.2.196 1949 Unknown [id number] 2.16. 840.1.362287.3.579.2.196 1949 Unknown [id number] 2.16. 840.1.658740.3.579.2.196 1949 Unknown [id number] 2.16. 840.1.372589.3.579.2.196 1949 Unknown [id number] 2.16.84 0.1.210416.3.579.2.1259 1949 Unknown [id number] 2.16.84 0.1.861497.3.579.2.1259 1949 Unknown [id number] 2.16.84 0.1.199023.3.579.2.1259 1949 Unknown [id number] 2.16.84 0.1.193854.3.579.2.1259 1949 Unknown [id number] 2.16.84 0.1.852641.3.579.2.1259 1949 Unknown [id number] 2.16.84 0.1.642230.3.579.2.1259 1949 Unknown [id number] 2.16.840 .1.295970.3.579.2.1259 1949 Unknown [id number] 2.16.8 40.1.427995.3.579.2.727 1949 Unknown [id number] 2.16.8 40.1.214663.3.579.2.727 1949 Unknown [id number] 2.16.8 40.1.755563.3.579.2.727 1949 Unknown [id number] 2.16.8 40.1.428897.3.579.2.727 1949 Unknown [id number] 2.16.8 40.1.016793.3.579.2. 1949 Unknown [id number] 2.16.8 40.1.355670.3.579.2. 1949 Unknown [id number] 2.16.8 40.1.430683.3.579.2. 1949 Unknown [id number] 2.16.8 40.1.642193.3.579.2 1949 Unknown [id number] 2.16.8 40.1.555293.3.579.2 1949 Unknown [id number] 2.16.8 40.1.087558.3.579.2 1949 Unknown [id number] 2.16.8 40.1.785100.3.579.2 1949 Unknown [id number] 2.16.8 40.1.115778.3.579.2 1949 Unknown [id number] 2.16.8 40.1.970777.3.579.2 1949 Unknown [id number] 2.16.8 40.1.952996.3.579.2 1949 Unknown [id number] 2.16.8 40.1.513450.3.579.2 1949 Unknown [id number] 2.16.8 40.1.831638.3.579.2 1949 Unknown [id number] 2.16.8 40.1.140203.3.579.2 1949 Unknown [id number] 2.16.8 40.1.829674.3.579.2 1949 Unknown [id number] 2.16.8 40.1.655046.3.579.2 1949 Unknown [id number] 2.16.8 40.1.435112.3.579.2.727 1949 Unknown [id number] 2.16.8 40.1.458502.3.579.2.727 Unknown Standard [employer] Ins [id number] Unknown [id number] 2.16.8 40.1.768479.3.579.2.531 Unknown [id number] 2.16.8 40.1.430169.3.579.2.531 Unknown [id number] 2.16.8 40.1.687422.3.579.2.531 Social History Date Type Detail Facility Unknown if ever smoked [facility] Other Start: 02-05-2024 End: 04-17-2024 Sex Assigned At [facility] Start: 1950 Sex Assigned At Male [facility] Start: 07-09-2018 End: 02-29-2024 Tobacco smoking status [facility] Never smoked tobacco (finding) [facility] Tobacco smoking status [facility] Tobacco smoking consumption unknown [facility] Start: 02-05-2024 End: 04-17-2024 History of Social function [facility] National Score (1-100), lower number is lower risk 67 [facility] Start: 1950 Sex Assigned At Not on file C [facility] Start: 02-29-2024 Tobacco use and exposure Smokeless tobacco non-user [facility] Start: 02-29-2024 Alcohol intake Ex-drinker (finding) [facility] Medical Equipment Procedure Code Equipment Code Equipment Original Text Equipment Identifier Dates ESWL, one kidney STENT CONTOUR 4 .8FR X 22-30CM FDA Start: 06-07-2018 ESWL, one kidney STENT CONTOUR 4 .8FR X 22-30CM FDA Start: 06-07-2018 Start: 12-11-2017 Lead Axium Slimt ip 1mm 5mm Space 50mm Neurostimulator Front Load 4 [id number] Start: 04-03-2024 Clinical Notes 07-21-2021 to 05-23-2024 Chiqui Robles MD - 04/24/2024 9:27 AM EDParish Rodriguez MD - 04/24/2024 9:02 AM EDTTelephone Encounter - Emilee So RN - 03/21/2024 11:38 AM EDTPatient Instructions Note Date & Type Note Facility 05-23-2024 Note Patient Education Infectious Disease Cellulitis, Adult Cellulitis is a skin infection. The infected area is often warm, red, swollen, and sore. It occurs most often in the arms and lower legs. It is very important to get treated for this condition. What are the causes? This condition is caused by bacteria. The bacteria enter through a break in the skin, such as a cut, burn, insect bite, open sore, or crack. What increases the risk? This condition is more likely to occur in people who: ? Have a weak body defense system (immune system). ? Have open cuts, lopez, bites, or scrapes on the skin. ? Are older than 60 years of age. ? Have a blood sugar problem (diabetes). ? Have a long-lasting (chronic) liver disease (cirrhosis) or kidney disease. ? Are very overweight (obese). ? Have a skin problem, such as: ? Itchy rash (eczema). ? Slow movement of blood in the veins (venous stasis). ? Fluid buildup below the skin (edema). ? Have been treated with high-energy rays (radiation). ? Use IV drugs. What are the signs or symptoms? Symptoms of this condition include: ? Skin that is: ? Red. ? Streaking. ? Spotting. ? Swollen. ? Sore or painful when you touch it. ? Warm. ? A fever. ? Chills. ? Blisters. How is this diagnosed? This condition is diagnosed based on: ? Medical history. ? Physical exam. ? Blood tests. ? Imaging tests. How is this treated? Treatment for this condition may include: ? Medicines to treat infections or allergies. ? Home care, such as: ? Rest. ? Placing cold or warm cloths (compresses) on the skin. ? Hospital care, if the condition is very bad. Follow these instructions at home: Medicines ? Take ykhk-gcx-bsykaks and prescription medicines only as told by your doctor. ? If you were prescribed an antibiotic medicine, take it as told by your doctor. Do not stop taking it even if you start to feel better. General instructions ? Drink enough fluid to keep your pee (urine) pale yellow. ? Do not touch or rub the infected area. ? Raise (elevate) the infected area above the level of your heart while you are sitting or lying down. ? Place cold or warm cloths on the area as told by your doctor. ? Keep all follow-up visits as told by your doctor. This is important. Contact a doctor if: ? You have a fever. ? You do not start to get better after 1?2 days of treatment. ? Your bone or joint under the infected area starts to hurt after the skin has healed. ? Your infection comes back. This can happen in the same area or another area. ? You have a swollen bump in the area. ? You have new symptoms. ? You feel ill and have muscle aches and pains. Get help right away if: ? Your symptoms get worse. ? You feel very sleepy. ? You throw up (vomit) or have watery poop (diarrhea) for a long time. ? You see red streaks coming from the area. ? Your red area gets larger. ? Your red area turns dark in color. These symptoms may represent a serious problem that is an emergency. Do not wait to see if the symptoms will go away. Get medical help right away. Call your local emergency services (911 in the [place] Do not drive yourself to the hospital. Summary ? Cellulitis is a skin infection. The area is often warm, red, swollen, and sore. ? This condition is treated with medicines, rest, and cold and warm cloths. ? Take all medicines only as told by your doctor. ? Tell your doctor if symptoms do not start to get better after 1?2 days of treatment. This information is not intended to replace advice given to you by your health care provider. Make sure you discuss any questions you have with your health care provider. Document Revised: 07/07/2022 Document Reviewed: 07/07/2022 [employer] Patient Education ? 2022 Material [facility] 05-13-2024 Note Patient Education Endocrinology Correction Insulin Correction insulin, also called a supplemental dose, is a small amount of insulin that can be used to lower your blood sugar (glucose) if it is too high. This dose brings your glucose level back to the target range. You will be instructed to check your glucose at certain times of the day and to use correction insulin as needed to lower your blood glucose. Correction insulin is primarily used as part of diabetes management. It may also be prescribed for people who do not have diabetes. What is a correction scale? A correction scale, also called a supplemental dose, is prescribed by your health care provider to help you determine when you need correction insulin. Your correction scale is based on your individual treatment goals, and it has two parts: ? Ranges of blood glucose levels. ? How much correction insulin to give yourself if your blood sugar is not in your desired range. If your blood glucose is in your desired range, you will not need correction insulin. What type of insulin do I need? You may be prescribed rapid-acting or short-acting insulin as correction insulin. Talk with your health care provider or pharmacist about which type of correction insulin to take and when to take it. Rapid-acting insulin This insulin: ? Starts working in the body (onset) in as little as 15 minutes. ? Is at its highest strength (peak) in 1?2 hours. ? Lasts (duration) for 2?4 hours. Short-acting insulin This insulin: ? Onset is in about 30 minutes. ? Peak is in 2?3 hours. ? Duration lasts for 3?6 hours. How do I manage my blood glucose with correction insulin? Giving a correction dose ? Check your blood glucose as directed by your health care provider. ? Use your correction scale to find the range that your blood glucose is in. ? Identify the units of insulin that match your blood glucose range. ? Give yourself the dose of correction insulin that your health care provider has prescribed in your correction scale. Always make sure you are using the right type of insulin. Keeping a blood glucose log ? Write down your blood glucose test results and the amount of insulin that you give yourself. Do this every time you check blood glucose or take insulin, even if it is in the correct range. Bring this log with you to your medical visits. This information will help your health care provider manage your medicines. ? Note anything that may affect your blood glucose, such as: ? Changes in normal exercise or activity. ? Changes in your normal schedule, such as changes in your sleep routine, going on vacation, changing your diet, or holidays. ? New jxsq-kzb-paswlwx or prescription medicines. ? Illness, stress, or anxiety. ? Changes in the time that you took your medicine or insulin. ? Changes in your meals, such as skipping a meal, having a late meal, or dining out. ? Eating things that may affect blood glucose, such as snacks, change in size of meal portions, drinks that contain sugar, or eating less than usual. Why do I need correction insulin if I do not have diabetes? If you do not have diabetes, your health care provider may prescribe insulin because: ? Keeping your blood glucose in the target range is important for your overall health. ? You are taking medicines that cause your blood glucose to be higher than normal. Contact a health care provider if: ? You have high blood glucose that you are not able to correct with correction insulin. ? You develop a low blood glucose that you are not able to treat yourself. ? Your blood glucose is often too low. Get help right away if: ? You become unresponsive. If this happens, someone else should call emergency services (911 in the [place] right away. ? Your blood glucose is lower than 54 mg/dL (3.0 mmol/L). ? You become confused or you have trouble thinking clearly. ? You have difficulty breathing. These symptoms may represent a serious problem that is an emergency. Do not wait to see if the symptoms will go away. Get medical help right away. Call your local emergency services (911 in the [place] Do not drive yourself to the hospital. Summary ? Correction insulin is primarily used in diabetes management. It can also be prescribed for people who do not have diabetes. ? Correction insulin is a small amount of insulin that can be used to lower your blood glucose if it is too high. It brings your glucose level to the target range. ? You will be instructed to check your blood glucose at certain times of the day and to use correction insulin as needed. Always keep a log of your blood glucose values and the amount of insulin you take. ? Talk with your health care provider or pharmacist about the type of correction insulin to take and when to take it. This information is not intended to replace advice given to you by your health care provider. Make sure you disc (more content not included)... [facility] 05-06-2024 Note HNO ID: [id number] Author: MORGAN TRINIDAD, Therapist Service: ? Author Type: Therapist Type: Progress Notes Filed: 05/07/2024 08:20 Note Text: THE [facility] Psychological Evaluation May 06, 2024 Dong Whitmore [facility]#: [id number] I have communicated my name and active licensure. The patient's identity and physical location were verified at the time of this visit. Either the patient or their legal circulation representative has been informed of the risks and benefits of -- and alternatives to -- treatment through virtual visit and consents to proceed with the session remotely. The patient e-signed the Informed Consent for Psychological Evaluation AND Care Form, and the [facility] care insurance benefits, fees for service, emergency procedures, and the limits of confidentiality that may pertain with any given case were discussed with the patient. The patient was given a copy of the consent form on [employer]. The patient consented to a virtual visit and their location was confirmed. Patient location: [place], [place] CPT Code: 0399945 Virtual Psych Diagnotic Eval Appointment Start: 9 AM This 73 year old retired for 15 years (he was having some medical problems, but they offered an early fpc package that was attractive at the time) male lives with his in [place], [place]. 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 He was referred by Chiqui Robles MD for psychological evaluation in the context of chronic pain. This consultation was shared with the referral source via the [facility] electronic medical record. He believes the reason for referral is someone to talk me out of this pain; they want me to understand what's going on with this pain. Limits to confidentiality were discussed and agreed upon. Informed consent was provided verbally. Patient was informed that this evaluation is for consultation and not to be used for legal or forensic purposes. The goal of the following assessment is to identify the psychological, behavioral, cognitive, and social factors important to or directly affecting the patient?s physiological functioning, health and well-being, as it relates to his/her pain condition. Recommendations will be provided to improve the patient?s health and well-being via cognitive, behavioral, social and/or psychophysiological procedures designed to ameliorate pain related problems. Chief complaints: Current Pain and Related Mood Symptoms: Right foot, middle toe joint pain Chronic back pain ; I can live with it; nobody wants to operate on it My whole body is loaded with arthritis Most bothersome/worse symptoms: Right foot, middle toe joint pain Patient-Entered Data: Pain Recovery Scores 04/17/2024 3:41 PM LBP over last 6 months - Ongoing back pain problem - START back screen total score - START back screen distress score - START back screen risk score - Oswestry disability index score - PCS rumination subscore 16 PCS magnification subscore 9 PCS helplessness subscore 22 PCS total score 47 04/17/2024 PHQ-9 Score 21 04/17/2024 LOW - 7 SCORES Score 19 02/29/2024 PROMIS Global Health - (T-Scores - the mean of general population = 50. Five points is a clinically meaningful difference.) Physical T-Score 29.6 Mental T-Score 33.8 No data to display History of Pain Syndrome: The following history is from the patient's report and a review of the EMR independently confirmed with the patient in this visit. Chiqui Robles MD, 04/24/2024: IMPRESSION: Complex regional pain syndrome. Adjustment Disorder. Tried multiple injections, procedures, surgeries. No benefit. Tried SCS and recently DRG without success. Discussed ketamine. Current Medications: Current Outpatient Medications Medication Sig Dispense Refill memantine (NAMENDA) 5 mg tablet Take 1 tablet by mouth once daily. 30 tablet 3 aspirin, enteric coated (ASPIRIN, ENTERIC COATED) 81 mg EC tablet Take 81 mg by mouth once daily. fish oil/borage/flax/om3,6,9 1 (FISH,BORA,FLAX OILS-OM3,6,9NO1 ORAL) Take by mouth every 24 hours. metoprolol succinate ER (TOPROL XL) 50 mg 24 hr tablet Take 1 tablet by mouth every 12 hours. buPROPion XL (WELLBUTRIN XL) 300 mg 24 hr tablet venlafaxine (EFFEXOR) 37.5 mg tablet Take 1 tablet by mouth every 12 hours. acarbose (PRECOSE) 50 mg tablet JANUVIA 100 mg tablet Take 1 tablet by mouth every afternoon. sodium bicarbonate 650 mg tablet TAKE 2 TABLETS BY MOUTH 3 TIMES A DAY FOR 90 DAYS DOCOSAHEXAENOIC ACID ORAL Fish Oil 1200mg BID calcium carbonate 600 mg-cholecalciferol 200 units 600 mg-5 mcg (200 unit) tab Calcium 600 losartan (COZAAR) 50 mg tablet Take 1.5 tablets by mouth every afternoon. simvastatin (ZOCOR) 40 mg tablet Take 40 mg by mouth every evening. tiZANidine (ZANAFLEX) 4 mg tablet Take 4 mg by mouth three times a day as needed. pioglitazone (ACT (more content not included)... [facility] 04-24-2024 Note HNO ID: [id number] Author: CHIQUI ROBLES MD Service: ? Author Type: Physician Type: Progress Notes Filed: 04/24/2024 11:26 Note Text: [facility] STAFF PHYSICIAN NOTE OF PERSONAL INVOLVEMENT IN CARE IMPRESSION: Complex regional pain syndrome Adjustment Disorder Tried multiple injections, procedures, surgeries. No benefit Tried SCS and recently DRG without success. Discussed ketamine PLAN: Ketamine infusions Consider scrambler therapy Psych psychology Memantine 5mg Psychotherapy Add-on Progress Note Due to medical condition and comorbid psychological and behavioral concerns - psychotherapy was utilized during the visit. [id number] time: 26146 (16-37 mins) actual time spend in psychotherapy 18min minutes Type of therapeutic intervention:Acceptance and Commitment Target symptoms: Activity pacing Progress/Session notes:functional restory Interactive Complexity: None I have reviewed the documentation above obtained and documented by the Resident and I have personally performed a face to face assessment of the patient and have personally participated in the doran components of the visit which includes medical decision making. and have reviewed and updated the problem list as appropriate. I have personally performed a face to face assessment of the patient and I have discussed the case and management of the patient's care. I spent a total of 65 minutes on the date of the service which included preparing to see the patient, [id number] patient care, completing clinical documentation, performing a medically appropriate examination, and counseling and educating the patient/family/caregiver. As noted, the patient's clinical situation is complex and serious with significant comorbidity of pain and functional limitations. This requires higher levels of time, intensity, and expense with longitudinal care and support. STAFF PHYSICIAN:: Chiqui Robles MD DATE of SERVICE: 04/24/2024 [facility] 04-24-2024 History of Presen t illness Narrative [facility] STAFF PHYSICIAN NOTE OF PERSONAL INVOLVEMENT IN CARE IMPRESSION: Complex regional pain syndrome Adjustment Disorder Tried multiple injections, procedures, surgeries. No benefit Tried SCS and recently DRG without success. Discussed ketamine PLAN: Ketamine infusions Consider scrambler therapy Psych psychology Memantine 5mg Psychotherapy Add-on Progress Note Due to medical condition and comorbid psychological and behavioral concerns - psychotherapy was utilized during the visit. Pasm-ry-ebyf time: 50514 (16-37 mins) actual time spend in psychotherapy 18min minutes Type of therapeutic intervention:Acceptance and Commitment Target symptoms: Activity pacing Progress/Session notes:functional restory Interactive Complexity: None I have reviewed the documentation above obtained and documented by the Resident and I have personally performed a face to face assessment of the patient and have personally participated in the doran components of the visit which includes medical decision making. and have reviewed and updated the problem list as appropriate. I have personally performed a face to face assessment of the patient and I have discussed the case and management of the patient's care. I spent a total of 65 minutes on the date of the service which included preparing to see the patient, [id number] patient care, completing clinical documentation, performing a medically appropriate examination, and counseling and educating the patient/family/caregiver. As noted, the patient's clinical situation is complex and serious with significant comorbidity of pain and functional limitations. This requires higher levels of time, intensity, and expense with longitudinal care and support. STAFF PHYSICIAN:: Chiqui Robles MD DATE of SERVICE: 04/24/2024 THE [facility] [place] April 24, 2024 This is a face to face visit. SUBJECTIVE: Dong is a 73 year-old male with Diabetes type 2 who comes to pain consult with a history of Chronic toe pain in the right foot. Dr. Araujo attempted to place a ganglion root stimulator which was not possible. He refers that the pain is constant. He gets partial relief when walking and worsens when sitting. Has tried different medications including gabapentin, tizanidine, venlafaxine, which help to sleep but do not lessen the pain. Today he comes to discuss further options of care. 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 3rd interphalangeal joint is deviated to the left. Full range of motion in other joints without pain. ASSESSMENT: CRPS Chronic pain in toe - right foot Diabetic neuropathy PLAN: Ketamine infusion therapy Memantine Pain psychology consult Parish Tucker MD documented in this encounter [facility] 04-24-2024 Note HNO ID: [id number] Author: PARISH RIOS MD Service: ? Author Type: Resident Type: Progress Notes Filed: 04/24/2024 11:26 Note Text: [facility] [place] April 24, 2024 This is a face to face visit. SUBJECTIVE: Dong is a 73 year-old male with Diabetes type 2 who comes to pain consult with a history of Chronic toe pain in the right foot. Dr. Araujo attempted to place a ganglion root stimulator which was not possible. He refers that the pain is constant. He gets partial relief when walking and worsens when sitting. Has tried different medications including gabapentin, tizanidine, venlafaxine, which help to sleep but do not lessen the pain. Today he comes to discuss further options of care. OBJECTIVE: PHYSICAL EXAM: BP 122/89 (BP Site: Left Arm, BP Position: Sitting, BP Cuff Size: Regular Adult) Pulse 61 Ht 170.2 cm (5' 7.01 ) Wt 122.5 kg (270 lb) SpO2 95% BMI 42.28 kg/m? 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 3rd interphalangeal joint is deviated to the left. Full range of motion in other joints without pain. ASSESSMENT: CRPS Chronic pain in toe - right foot Diabetic neuropathy PLAN: Ketamine infusion therapy Memantine Pain psychology consult Parish Tucker MD [facility] 03-21-2024 Telephone encounter Note Spoke with patient and notified him of provider recommendations. Verbalized understanding. Emilee So RN [facility] 03-21-2024 Miscellaneous Notes Spoke with patient and notified him of provider recommendations. Verbalized understanding. Emilee So RN Ok per Dr Araujo to proceed with trial - still recommending to keep appt with ID Spoke with patient at request of tie presser as patient has questions about referral to infectious disease. Patient states that he spoke with his PCP, Dr. Hickman ([phone]) who spoke with Dr. Vega in Infectious disease at [facility]. Dr. Hickman ordered lab work at the request of Dr. Vega and told patient that everything is fine . Patient is asking if he still needs to see infectious disease as he cannot get an appointment with them until 04/01 (2 days before scheduled trial for DRG) Spoke with RNNelli, in Dr. Hickman' office. She states that labs were ordered and that patient was given referral for ID. She will fax over lab test results as they are not on EPIC. She will discuss with Dr. Hickman to see if he is able to expedite patient's appointment with infectious disease so that DRG trial may move forward as planned. Emilee So RN documented in this encounter [facility] 03-21-2024 Telephone encounter Note Ok per Dr Araujo to proceed with trial - still recommending to keep appt with ID [facility] Work Phone: 03-19-2024 Telephone encounter Note Spoke with patient at request of tie presser as patient has questions about referral to infectious disease. Patient states that he spoke with his PCP, Dr. Hickman ([phone]) who spoke with Dr. Vega in Infectious disease at [facility]. Dr. Hickman ordered lab work at the request of Dr. Vega and told patient that everything is fine . Patient is asking if he still needs to see infectious disease as he cannot get an appointment with them until 04/01 (2 days before scheduled trial for DRG) Spoke with RN, Nelli, in Dr. Hickman' office. She states that labs were ordered and that patient was given referral for ID. She will fax over lab test results as they are not on EPIC. She will discuss with Dr. Hickman to see if he is able to expedite patient's appointment with infectious disease so that DRG trial may move forward as planned. Emilee So, RN [facility] 03-15-2024 Note Microbiology PROCEDURE: Blood Culture Charcoal [R1] SOURCE: Blood BODY SITE: COLLECTED DATE/TIME: 03/08/2024 08:30 EDT RECEIVED DATE/TIME: 03/08/2024 09:02 EDT START DATE/TIME: 03/08/2024 09:02 EDT FREE TEXT SOURCE: michel Hickman MD, Haider Hickman MD, Haider Bee FINAL REPORTS Final Report [] Verified Date/Time: 03/15/2024 12:00 EDT No growth at 7 days. Performing Locations R1: This test was performed at: [facility], [address] [place] [address], [id number] , , [facility] Comment on above: Performed By: #### 1 [id number] #### [facility] [address] [place] [id number] 03-15-2024 Note Microbiology PROCEDURE: Blood Culture Charcoal [R1] SOURCE: Blood BODY SITE: Arm L COLLECTED DATE/TIME: 03/08/2024 08:30 EDT RECEIVED DATE/TIME: 03/08/2024 09:02 EDT START DATE/TIME: 03/08/2024 09:02 EDT FREE TEXT SOURCE: lt paddy Hickman MD, Haider Hickman MD, Haider Bee FINAL REPORTS Final Report [] Verified Date/Time: 03/15/2024 12:00 EDT No growth at 7 days. Performing Locations R1: This test was performed at: [facility], [address] [place] [address], [id number] , , [facility] Comment on above: Performed By: #### 1 [id number] #### [facility] [address] [place] [id number] 02-29-2024 Instructions Senthil Giraldo MD - 02/29/2024 1:38 PM EDT - Right DRG trial - Obtain psychological evaluation report (patient reports he just had this done ~two months ago) and send to [facility] - ID consult - Rule out infectious risk with due to the dermatitis. - Follow up: Return to clinic for the above procedure documented in this encounter [facility] 02-29-2024 Note HNO ID: [id number] Author: HERBERTH ARAUJO MD, PhD Service: ? Author Type: Physician Type: Progress Notes Filed: 03/18/2024 19:05 Note Text: [facility] Pain Management Department New Patient Consultation Referring Physician: SELF Chief Complaint: Right third toe pain SUBJECTIVE: Dong Whitmore is a 73 year old male with a pertinent past medical history of diabetes who presents to [facility] for the evaluation of right third toe pain. 15-year history of right third toe pain. He notes that over this time the pain has become increasingly severe has caused him significant discomfort and suffering. He has been to many specialists in the [facility] area-over the course of the past 15 years, there has been no unifying diagnosis to discern why this toe continues to be painful. He notes that this pain is the pain only in the third toe of his right foot there is an aching, burning, stabbing, throb. He is unsure what brings it on, he notes that it is usually worse with sitting and laying. It can usually go away with walking and standing, however it is not 100% reliable. He does not note the classic symptoms of painful diabetic neuropathy-he notes no significant burning in his feet, just numbness in the toes and on the bottoms of his feet. He has tried a variety of medications including gabapentin, Lyrica, amitriptyline, Cymbalta-none of these were ever effective. Intensity of pain: 0 on a scale of 0-10. Duration of pain: many years ago, with no precipitating event.. The pain is located Rt foot middle toe and does not radiate on the right. Pain Description: ache,sharp,dull,throbb Timing: changes in severity but always present Aggravating Factors: sitting Alleviating Factors: standing/walking Interference with: social activities. The patient denies difficulty with bowel or bladder control, unintentional weight loss, fevers, chills, or night sweats, and drug use . Physical Therapy/Home Exercise: No In the past 12 months, He completed 0 physical therapy sessions. Physical therapy is n/a. Current Pain Medications and Dosages: - Opioids: N - NSAIDs: N - Anti-Depressants: venlafaxine - Anti-Convulsants: N - Others: zanaflex Prior treatments: physical therapy, medications, injections Prior Pain Procedures (with percentage of pain relief and duration of relief): LUMBAR SYMPATHETIC BLOCKS Scs trial OARRS report: Reviewed: The patient's OARRS report was reviewed and is consistent with the reported medication use. Pain medications reviewed: Yes Pertinent Imaging: MRI lumbar spine: No past medical history on file. No past surgical history on file. No family history on file. ALLERGIES Allergen Reactions Nsaids (Non-Steroid* GI Upset Current Outpatient Medications Medication Sig fish oil/borage/flax/om3,6,9 1 (FISH,BORA,FLAX OILS-OM3,6,9NO1 ORAL) Take by mouth every 24 hours. metoprolol succinate ER (TOPROL XL) 50 mg 24 hr tablet Take 1 tablet by mouth every 12 hours. buPROPion XL (WELLBUTRIN XL) 300 mg 24 hr tablet venlafaxine (EFFEXOR) 37.5 mg tablet Take 1 tablet by mouth every 12 hours. acarbose (PRECOSE) 50 mg tablet JANUVIA 100 mg tablet Take 1 tablet by mouth every afternoon. sodium bicarbonate 650 mg tablet TAKE 2 TABLETS BY MOUTH 3 TIMES A DAY FOR 90 DAYS DOCOSAHEXAENOIC ACID ORAL Fish Oil 1200mg BID calcium carbonate 600 mg-cholecalciferol 200 units 600 mg-5 mcg (200 unit) tab Calcium 600 losartan (COZAAR) 50 mg tablet Take 1.5 tablets by mouth every afternoon. simvastatin (ZOCOR) 40 mg tablet Take 40 mg by mouth every evening. tiZANidine (ZANAFLEX) 4 mg tablet Take 4 mg by mouth three times a day as needed. pioglitazone (ACTOS) 30 mg tablet Take 1 tablet by mouth every afternoon. nitroglycerin sublingual (NITROQUICK) 0.4 mg SL tablet No current facility-administered medications for this visit. Questionnaires: Patient Entered Questionnaires PROMIS Score Percentiles 02/29/2024 PROMIS Global Health Scale Physical Health Percentile 2 Mental Health Percentile 5 02/29/2024 Physical Health Physical Function Percentile 7 Pain Interference Percentile 2 Percentiles provide an indication of how the patient's score ranks in relation to the general population. Higher percentile rankings indicate better function/quality of life. 50th percentile is the average of the general population and indicates half of respondents had a worse score. > 31st percentile is within normal limits or better * < 31st percentile is at least ? SD worse than population, which may be clinically relevant < 16th percentile is at least 1 SD worse than population and warrants attention Depression Screening: PHQ-9 Self-Harm (Item 9) response options: 0 Not at all 1 Several days 2 More than half the days 3 Nearly every day PHQ-9 Levels: 0-4 Minimal depression 5-9 Mild depression 10-14 Mo (more content not included)... [facility] 02-29-2024 History of Presen t illness Narrative Images from the original note were not included. [facility] Pain Management Department New Patient Consultation Referring Physician: SELF Chief Complaint: Right third toe pain SUBJECTIVE: Dong Whitmore is a 73 year old male with a pertinent past medical history of diabetes who presents to [facility] for the evaluation of right third toe pain. 15-year history of right third toe pain. He notes that over this time the pain has become increasingly severe has caused him significant discomfort and suffering. He has been to many specialists in the [facility]-over the course of the past 15 years, there has been no unifying diagnosis to discern why this toe continues to be painful. He notes that this pain is the pain only in the third toe of his right foot there is an aching, burning, stabbing, throb. He is unsure what brings it on, he notes that it is usually worse with sitting and laying. It can usually go away with walking and standing, however it is not 100% reliable. He does not note the classic symptoms of painful diabetic neuropathy-he notes no significant burning in his feet, just numbness in the toes and on the bottoms of his feet. He has tried a variety of medications including gabapentin, Lyrica, amitriptyline, Cymbalta-none of these were ever effective. Intensity of pain: 0 on a scale of 0-10. Duration of pain: many years ago, with no precipitating event.. The pain is located Rt foot middle toe and does not radiate on the right. Pain Description: ache,sharp,dull,throbb Timing: changes in severity but always present Aggravating Factors: sitting Alleviating Factors: standing/walking Interference with: social activities. The patient denies difficulty with bowel or bladder control, unintentional weight loss, fevers, chills, or night sweats, and drug use . Physical Therapy/Home Exercise: No In the past 12 months, He completed 0 physical therapy sessions. Physical therapy is n/a. Current Pain Medications and Dosages: - Opioids: N - NSAIDs: N - Anti-Depressants: venlafaxine - Anti-Convulsants: N - Others: zanaflex Prior treatments: physical therapy, medications, injections Prior Pain Procedures (with percentage of pain relief and duration of relief): LUMBAR SYMPATHETIC BLOCKS Scs trial OARRS report: Reviewed: The patient's OARRS report was reviewed and is consistent with the reported medication use. Pain medications reviewed: Yes Pertinent Imaging: MRI lumbar spine: No past medical history on file. No past surgical history on file. No family history on file. ALLERGIES Allergen Reactions Nsaids (Non-Steroid* GI Upset Current Outpatient Medications Medication Sig fish oil/borage/flax/om3,6,9 1 (FISH,BORA,FLAX OILS-OM3,6,9NO1 ORAL) Take by mouth every 24 hours. metoprolol succinate ER (TOPROL XL) 50 mg 24 hr tablet Take 1 tablet by mouth every 12 hours. buPROPion XL (WELLBUTRIN XL) 300 mg 24 hr tablet venlafaxine (EFFEXOR) 37.5 mg tablet Take 1 tablet by mouth every 12 hours. acarbose (PRECOSE) 50 mg tablet JANUVIA 100 mg tablet Take 1 tablet by mouth every afternoon. sodium bicarbonate 650 mg tablet TAKE 2 TABLETS BY MOUTH 3 TIMES A DAY FOR 90 DAYS DOCOSAHEXAENOIC ACID ORAL Fish Oil 1200mg BID calcium carbonate 600 mg-cholecalciferol 200 units 600 mg-5 mcg (200 unit) tab Calcium 600 losartan (COZAAR) 50 mg tablet Take 1.5 tablets by mouth every afternoon. simvastatin (ZOCOR) 40 mg tablet Take 40 mg by mouth every evening. tiZANidine (ZANAFLEX) 4 mg tablet Take 4 mg by mouth three times a day as needed. pioglitazone (ACTOS) 30 mg tablet Take 1 tablet by mouth every afternoon. nitroglycerin sublingual (NITROQUICK) 0.4 mg SL tablet No current facility-administered medications for this visit. Questionnaires: Patient Entered Questionnaires PROMIS Score Percentiles 02/29/2024 PROMIS Global Health Scale Physical Health Percentile 2 Mental Health Percentile 5 02/29/2024 Physical Health Physical Function Percentile 7 Pain Interference Percentile 2 Percentiles provide an indication of how the patient's score ranks in relation to the general population. Higher percentile rankings indicate better function/quality of life. 50th percentile is the average of the general population and indicates half of respondents had a worse score. > 31st percentile is within normal limits or better * < 31st percentile is at least SD worse than population, which may be clinically relevant < 16th percentile is at least 1 SD worse than population and warrants attention Depression Screening: PHQ-9 Self-Harm (Item 9) response options: 0 Not at all 1 Several days 2 More than half the days 3 Nearly every day PHQ-9 Levels: 0-4 Minimal depression 5-9 Mild depression 10-14 Moderate depression 15-19 Moderately severe depression 20-27 Severe depression No data to display (0-4) minimal depression, (5-9) mild depression, (10-14) moderate depression, (15-19) moderately severe depression, (20-27) severe depression No data to display No data to display REVIEW OF SYSTEMS: GENERAL: SEE HPI, No weight loss, malaise or fevers. HEENT: No changes in hearing or vision, no nose bleeds or other nasal problems NECK: See HPI RESPIRATORY: Negative for cough, wheezing or shortness of breath. CARDIOVASCULAR: Negative for chest pain, leg swelling or palpitations. GASTROINTESTINAL: Negative for abdominal discomfort, blood in stools or black stools or change in bowel habits GENITOURINARY: No history of dysuria, frequency or incontinence MUSCULOSKELETAL: See HPI NEUROLOGIC: See HPI SKIN: Negative for lesions, rash, and itching. PSYCHIATRIC: Negative for sleep disturbance, mood disorder and recent psychosocial stressors. HEMATOLOGIC/LYMPHATIC/IMMUNOLOG IC: Negative for prolonged bleeding, bruising easily or swollen nodes. ENDOCRINE: Negative for cold or heat intolerance, polyuria, polydipsia and goiter. The remainder of the ROS was negative. OBJECTIVE: There were no vitals taken for this visit. PHYSICAL EXAMINATION: General:well appearing, alert, and in no acute distress Psych: Appropriate affect Skin: skin color, texture, turgor normal, no rashes or lesions HEENT: normocephalic, atraumatic, sclera non-icteric CV: Extremities well perfused Resp: Unlabored on room air GI: Soft, non-tender, non-distended. : not examined Musculoskeletal: Neck: Supple; good ROM. Back: No pain on palpation of the lumbar spine. Full ROM without reproducible pain. Straight leg raising test negative bilaterally. Extremities: multiple amputated digits on the right foot Neurological: Mental Status: alert Cranial Nerves: Cranial nerves II-XII are grossly intact Reflexes: Deep tendon reflexes are 2+ all throughout. Motor Strength: Motor strength and tone are 5/5 all throughout. Sensory: decreased sensation in the bilateral lower extremities to light touch Gait: Normal. ASSESSMENT: Dong Whitmore is a 73 year old male with a pertinent past medical history of diabetes who presents to [facility] for the evaluation of right third toe pain. He describes a 15-year history of right third toe pain. He notes that over this time the pain has become increasingly severe has caused him significant discomfort and suffering. He has been to many specialists in the [facility] area-over the course of the past 15 years, there has been no unifying diagnosis to discern why this toe continues to be painful. He notes that this pain is the pain only in the third toe of his right foot there is an aching, burning, stabbing, throb. He is unsure what brings it on, he notes that it is usually worse with sitting and laying. It can usually go away with walking and standing, however it is not 100% reliable. He does not note the classic symptoms of painful diabetic neuropathy-he notes no significant burning in his feet, just numbness in the toes and on the bottoms of his feet. He has tried a variety of medications including gabapentin, Lyrica, amitriptyline, Cymbalta-none of these were ever effective. On physical exam, he has multiple amputated digits on the right foot. Additionally, he has decreased sensation in the bilateral lower extremities to light touch. MRI lumbar spine revealed moderate to severe central canal stenosis at L3-4. The patient has a history of right lumbar sympathetic block, distal sciatic injection, spinal cord stimulator trial all within the past few months which did not help with his pain at all. He notes that he has had injections prior to this, however I do not have evidence of these-he thinks they may have been epidurals, however he is unsure. He notes during his spinal cord stimulator trial he never felt it in his foot-during the trial itself, he is unsure if he felt it as they were placing the leads as he was [place]. Counseled the patient regarding the importance of activity modification, weight loss, diet, exercise, consistent sleep habits, and stress management. (M79.674, G89.29) Chronic toe pain, right foot (primary encounter diagnosis) (E11.40) Painful diabetic neuropathy (HCC) (L30.9) Dermatitis of lower extremity Senthil Giraldo MD PLAN: - Right L4 and L5 DRG trial - Obtain psychological evaluation report (patient reports he just had this done ~two months ago) and send to [facility] - ID consult - Rule out infectious risk with due to the dermatitis. - Follow up: Return to clinic for the above procedure The above plan and management options were discussed at length with the patient. The patient is in agreement with the above and verbalized understanding. It will be communicated with the referring physician via electronic record, fax, or mail. Senthil Giraldo MD February 29, 2024 Attending note: doran findings were confirmed. I discussed with resident physician and the patient, was present for procedure/visit. Plan is as outlined. ELECTRONIC SIGNATURE, Herberth Araujo MD, PhD documented in this encounter [facility] 02-06-2024 Telephone encounter Note Called and spoke to patient. Gave him this message from Dr. Singletary: I'd suggest seeking an appointment with the following doctors who perform DRG implantation: Dr. Carlisle, Dr. Araujo, Dr. Dan, Dr. Cortés Patient voiced understanding. [facility] 02-06-2024 Miscellaneous Notes Called and spoke to patient. Gave him this message from Dr. Singletary: I'd suggest seeking an appointment with the following doctors who perform DRG implantation: Dr. Carlisle, Dr. Araujo, Dr. Dan, Dr. Cortés Patient voiced understanding. ----- Message from Francoise Singletary MD sent at 02/05/2024 3:12 PM EDT ----- Do you mind calling him and giving him the number to schedule at [facility] [place] to discuss DRG? I'd suggest seeking an appointment with the following doctors who perform DRG implantation: Dr. Carlisle, Dr. Araujo, Dr. Dan, Dr. Moo Mcwilliams and Dr. Kamara may do DRG - I'm not sure. Thanks Lela! ----- Message ----- From: Livia Lester PA-C Sent: 02/05/2024 2:07 PM EDT To: Francoise Singletary MD No one on this side of [facility] that I know of does DRG so, we also send to [facility] I would just have Lela call the patient and tell him this is not something you do and tell him he needs to be seen a [facility] ----- Message ----- From: Francoise Singletary MD Sent: 02/05/2024 1:45 PM EDT To: Livia Lester PA-C Hi! He was supposed to get referred for consideration of DRG - the only people I know who do DRG are at [facility]. How do we refer him there? From what I remember, Truman Melendez, Ni, and Moo do DRG - do you know of anyone else? documented in this encounter [facility] 02-06-2024 Telephone encounter Note ----- Message from Francoise Singletary MD sent at 02/05/2024 3:12 PM EDT ----- Do you mind calling him and giving him the number to schedule at [facility] to discuss DRG? I'd suggest seeking an appointment with the following doctors who perform DRG implantation: Dr. Carlisle, Dr. Araujo, Dr. Dan, Dr. Moo Mcwilliams and Dr. Kamara may do DRG - I'm not sure. Thanks Lela! ----- Message ----- From: Livia Lester PA-C Sent: 02/05/2024 2:07 PM EDT To: Francoise Singletary MD No one on this side of [facility] that I know of does DRG so, we also send to [facility] I would just have Lela call the patient and tell him this is not something you do and tell him he needs to be seen a [facility] ----- Message ----- From: Francoise Singletary MD Sent: 02/05/2024 1:45 PM EDT To: Livia Lester PA-C Hi! He was supposed to get referred for consideration of DRG - the only people I know who do DRG are at [facility]. How do we refer him there? From what I remember, Truman Melendez, Ni, and Moo do DRG - do you know of anyone else? [facility] 02-05-2024 Instructions Francoise Singletary MD - 02/05/2024 1:01 PM EDT Thank you for taking the time to come and see me today! Please schedule an appointment for: [facility] Consult Please follow up with [facility] Please send all of your Podiatry, Neurology, and Pain Management records to us I will refer you to a provider who performs DRG to discuss this Please come back to see me as needed documented in this encounter [facility] 02-05-2024 History of Presen t illness Narrative Images from the original note were not included. [facility] Consultation Date: February 02, 2024 - 1:48 PM Referring physician: No referring provider defined for this encounter. Dong Whitmore is self referred. Chief Complaint: Patient presents with: Consult: Rt foot SUBJECTIVE History of Present Illness Dong Whitmore is a 73 year old and presents with Right foot. Past medical history is significant for: No past medical history on file. Intensity of pain: 0 on a scale of 0-10. Duration of pain: many years ago, with no precipitating event.. The pain is located Rt foot middle toe and does not radiate on the right. Pain Description: ache,sharp,dull,throbb Timing: changes in severity but always present Aggravating Factors: sitting Alleviating Factors: standing/walking Interference with: social activities. In the past 12 months, He completed 0 physical therapy sessions. Physical therapy is n/a. The patient has seen other pain providers. [facility] Neurology OV 02/01/22 Assessment and Plan 71 year old man with past medical History significant for diabetes mellitus type 2, presenting with right middle toe pain which has been ongoing for the last 12 to 13 years. He denies having any weakness however does have sensory loss and has feet bilaterally and hands. He notes that the pain is worse at night and improves with ambulation. He has tried gabapentin and Lyrica in the past without significant relief. Neurologic exam is significant for glove and stocking distribution sensory loss, positive Romberg. EMG nerve conduction positive for polyneuropathy. Impression: Polyneuropathy, localized to right toe pain unlikely to be related to his prior longstanding back pain. Possible Red Flag Dong Whitmore has no red flag symptoms. Past pain treatment has included injection Past pain medications have included None He had relief from the following interventions: None He had relief from the following medications:None Review of Systems Constitutional: Negative. HENT: Negative. Eyes: Negative. Respiratory: Positive for cough and shortness of breath. Negative for hemoptysis, sputum production and wheezing. Cardiovascular: Negative. Gastrointestinal: Negative. Genitourinary: Positive for frequency. Negative for dysuria, flank pain, hematuria and urgency. Musculoskeletal: Positive for back pain. Negative for falls, joint pain, myalgias and neck pain. Skin: Negative. Neurological: Negative. Endo/Heme/Allergies: Negative for environmental allergies and polydipsia. Bruises/bleeds easily. Psychiatric/Behavioral: Negative. OBJECTIVE Imaging Objective February 02, 2024 MRI to be uploaded to our system Reports listed here were copy and pasted directly into the note after review of the complete report and/or the images. Those areas highlighted in red are significant and specific to today's encounter. Physical Examination Physical Exam Vitals: BP 131/70 Pulse 80 Wt 275 lb (124.7kg) General: Well appearing, alert, in no acute distress, well-hydrated, well nourished. and Obese Mental Status: Alert and Oriented x3. Speech is normal. Affect: even Skin: Skin color, texture, turgor normal, no suspicious rashes or lesions HEENT: Pupils equal, round, reactive to light. Not pinpoint. Pulmonary: Breathing easily without tachypnea or bradypnea. Cardiac: No LE edema. Abdomen: soft, not distended Ambulation: Gait is antalgic. Patient ambulates, unassisted. 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 Right third toe not tender to palpation, numbness noted of the toe and the bottom of the right foot. No significant discoloration. Patient denies any red flag symptoms such as bowel/bladder dysfunction or sudden weakness. Assessment & Plan Assessment & Plan February 02, 2024 The primary encounter diagnosis was Chronic toe pain, right foot. A diagnosis of Painful diabetic neuropathy (HCC) was also pertinent to this visit. This is a 73 year old male with a 15-year history of right third toe pain. He notes that over this time the pain has become increasingly severe has caused him significant discomfort and suffering. He has been to many specialists in the [facility] area-over the course of the past 15 years, there has been no unifying diagnosis to discern why this toe continues to be painful. He notes that this pain is the pain only in the third toe of his right foot there is an aching, burning, stabbing, throb. He is unsure what brings it on, he notes that it is usually worse with sitting and laying. It can usually go away with walking and standing, however it is not 100% reliable. He does not note the classic symptoms of painful diabetic neuropathy-he notes no significant burning in his feet, just numbness in the toes and on the bottoms of his feet. He has tried a variety of medications including gabapentin, Lyrica, amitriptyline, Cymbalta-none of these were ever effective. 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 Unfortunately during our appointment today, epic was down I was unable to review his record more in depth. I reviewed the outside records and per these notes, he had a history of right lumbar sympathetic block, distal sciatic injection, spinal cord stimulator trial all within the past few months which did not help with his pain at all. He notes that he has had injections prior to this, however I do not have evidence of these-he thinks they may have been epidurals, however he is unsure. He notes during his spinal cord stimulator trial he never felt it in his foot-during the trial itself, he is unsure if he felt it as they were placing the leads as he was in [place]. He was referred for DRG-unfortunately I do not perform this procedure but will refer him to a colleague that does. As I noted before, he appears today while [facility] was down, and I not have access to all of his records-I only had records from the past 3 months or so from his outside pain management department. He notes that he is interested in having a workup of this pain is including clinic, and thus I will refer him to neurology and podiatry has second opinions to see if there might be some underlying pathology that might be causing this pain. For his pain, we discussed that there is no utility in placing back on medications that did not help, we discussed the chronic pain recovery program which she was agreeable to. I will refer him to a doctor at [facility] for consideration of DRG and to discuss the risks, benefits, alternatives. Diagnostics/Referrals: -Chronic Pain Recovery Program referral Referral to [facility] podiatry, neurology for second opinions 2. Pharmaceuticals: -No changes were made today. Pain medications were reviewed. 3. Procedures/Interventions: -None at this time. 4. Rehabilitation/Physical Therapy -Patient would benefit from an ongoing exercise program. 5. Complementary and Alternative Therapies: -This was not discussed today, though patient would benefit from future optimization in this area. 6. Follow up: - Return to clinic in: as needed if symptoms progress or fail to improve The above plan and management options were discussed with patient. The patient is in agreement with the above and verbalized understanding. Francoise Singletary MD Electronic signature This office note has been dictated and may contain minor typographic errors that escaped review. I have confirmed and edited as necessary, the PFSH and ROS obtained by others. Relevant History from the Electronic Medical Record Questionnaires: Patient Entered Questionnaires PROMIS Score Percentiles Percentiles provide an indication of how the patient's score ranks in relation to the general population. Higher percentile rankings indicate better function/quality of life. 50th percentile is the average of the general population and indicates half of respondents had a worse score. > 31st percentile is within normal limits or better * < 31st percentile is at least SD worse than population, which may be clinically relevant < 16th percentile is at least 1 SD worse than population and warrants attention Depression Screening: PHQ-9 Self-Harm (Item 9) response options: 0 Not at all 1 Several days 2 More than half the days 3 Nearly every day PHQ-9 Levels: 0-4 Minimal depression 5-9 Mild depression 10-14 Moderate depression 15-19 Moderately severe depression 20-27 Severe depression No data to display (0-4) minimal depression, (5-9) mild depression, (10-14) moderate depression, (15-19) moderately severe depression, (20-27) severe depression No data to display No data to display ALLERGIES Not on File Current Medications: No prescriptions on file. No past medical history on file. No past surgical history on file. No family history on file. Social History: Alcohol Use: Not on file Tobacco Use: Not on file Drug Use: Not on file Employer And Job Title: None on file Years Of Education Completed: Not specified Marital Status: Unknown Medical Decision Making The [facility] EMR was reviewed during the visit including: Problem List, Past Medical History, Past Surgical History, Medications, Allergies, Encounters with other providers and associated notes, Imaging, Labs, and Care Everywhere for OSH records Notes and tests identified as copied and pasted above were directly placed into the frame of this note and are pertinent to my medical decision making. [place]ARRS: PDMP website checked and validated and is consistent with medication report. *Information in italics was copied from the shared EMR documented in this encounter [facility] 02-05-2024 Note HNO ID: [id number] Author: FRANCOISE SINGLETARY MD Service: ? Author Type: Physician Type: Progress Notes Filed: 02/05/2024 15:14 Note Text: [facility] Consultation Date: February 02, 2024 - 1:48 PM Referring physician: No referring provider defined for this encounter. Dong Whitmore is self referred. Chief Complaint: Patient presents with: Consult: Rt foot SUBJECTIVE History of Present Illness Dong Whitmore is a 73 year old and presents with Right foot. Past medical history is significant for: No past medical history on file. Intensity of pain: 0 on a scale of 0-10. Duration of pain: many years ago, with no precipitating event.. The pain is located Rt foot middle toe and does not radiate on the right. Pain Description: ache,sharp,dull,throbb Timing: changes in severity but always present Aggravating Factors: sitting Alleviating Factors: standing/walking Interference with: social activities. In the past 12 months, He completed 0 physical therapy sessions. Physical therapy is n/a. The patient has seen other pain providers. [facility] Neurology OV 02/01/22 Assessment and Plan 71 year old man with past medical History significant for diabetes mellitus type 2, presenting with right middle toe pain which has been ongoing for the last 12 to 13 years. He denies having any weakness however does have sensory loss and has feet bilaterally and hands. He notes that the pain is worse at night and improves with ambulation. He has tried gabapentin and Lyrica in the past without significant relief. Neurologic exam is significant for glove and stocking distribution sensory loss, positive Romberg. EMG nerve conduction positive for polyneuropathy. Impression: Polyneuropathy, localized to right toe pain unlikely to be related to his prior longstanding back pain. Possible Red Flag Dnog Whitmore has no red flag symptoms. Past pain treatment has included injection Past pain medications have included None He had relief from the following interventions: None He had relief from the following medications:None Review of Systems Constitutional: Negative. HENT: Negative. Eyes: Negative. Respiratory: Positive for cough and shortness of breath. Negative for hemoptysis, sputum production and wheezing. Cardiovascular: Negative. Gastrointestinal: Negative. Genitourinary: Positive for frequency. Negative for dysuria, flank pain, hematuria and urgency. Musculoskeletal: Positive for back pain. Negative for falls, joint pain, myalgias and neck pain. Skin: Negative. Neurological: Negative. Endo/Heme/Allergies: Negative for environmental allergies and polydipsia. Bruises/bleeds easily. Psychiatric/Behavioral: Negative. OBJECTIVE Imaging Objective February 02, 2024 MRI to be uploaded to our system Reports listed here were copy and pasted directly into the note after review of the complete report and/or the images. Those areas highlighted in red are significant and specific to today's encounter. Physical Examination Physical Exam Vitals: BP 131/70 Pulse 80 Wt 275 lb (124.7kg) General: Well appearing, alert, in no acute distress, well-hydrated, well nourished. and Obese Mental Status: Alert and Oriented x3. Speech is normal. Affect: even Skin: Skin color, texture, turgor normal, no suspicious rashes or lesions HEENT: Pupils equal, round, reactive to light. Not pinpoint. Pulmonary: Breathing easily without tachypnea or bradypnea. Cardiac: No LE edema. Abdomen: soft, not distended Ambulation: Gait is antalgic. Patient ambulates, unassisted. 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 Right third toe not tender to palpation, numbness noted of the toe and the bottom of the right foot. No significant discoloration. Patient denies any red flag symptoms such as bowel/bladder dysfunction or sudden weakness. Assessment AND Plan Assessment AND Plan February 02, 2024 The primary encounter diagnosis was Chronic toe pain, right foot. A diagnosis of Painful diabetic neuropathy (HCC) was also pertinent to this visit. This is a 73 year old male with a 15-year history of right third toe pain. He notes that over this time the pain has become increasingly severe has caused him significant discomfort and suffering. He has been to many specialists in the [place] area-over (more content not included)... [facility] 01-01-2024 Note [id number] [facility] 09-11-2023 Evaluation note Encounter Date Diagnosis Assessment [...] 6.9% 2. Blood glucose levels according to [email or web address] 3 cgm download 08/29/23-09/11/23 : Avg glucose [...] Current use of insulin (ICD-10 - Z79.4) [facility] Other 11-16-2023 Evaluation note* Encounter Date Diagnosis Assessment Notes Treatment Notes Treatment Clinical Notes Aug, Cellulitis of right lower extremity (ICD-10 - L03.115) I did thoroughly review all the studies from [facility]. I do not have any images to [...] include weight loss exercise and compression therapy. [facility] Other 09-13-2023 NotePatient here for 6 mo follow up CAD, hypertension, and hyperlipidemia. Denies chest pain and palpitations. Says his SOB w/ exertion remains unchanged. C/o RLE edema w/ poor wound healing. He's seeing wound care at [facility] in [place]. Had normal NARAYAN's in Jul 2022. RLE venous doppler was negative for DVT in December 2022.[facility]09-13-2023 NoteCardiovascular Medicine [facility] SUBJECTIVE Dong Whitmore is a 72 [...] Obesity Sleep apnea Type 2 diabetes mellitus ([facility]) Past Medical History: Diagnosis Date CAD (coronary artery disease) DM type 2 (diabetes mellitus, type 2) ([facility]) HLD (hyperlipidemia) HTN (hypertension) Neuropathy [...] acute or reversible is (more content not included)...[facility]-01[facility] Evaluation note* Encounter Date Diagnosis Assessment Notes Treatment Notes Treatment Clinical Notes Jun, Type 2 diabetes mellitus with diabetic chronic kidney disease (ICD-10 - E11.22) Dong and his came in today for In*Situ Architecture baylee 3 training and refresher on his [...] He was given a no cut Grif Players Assistant to try and a brochure to buy them online. We discussed the Novolog pen and that he is to use it if his BG before a meal is greater than 150. He was able to dial the pen and knows how to put the pen needle on and deliver the dose. 30 minutes were spent educating the patient by Kamlesh Sparrow RN, [facility]. [facility] Other 05-30-2023 Evaluation note* Encounter Date Diagnosis Assessment Notes Treatment Notes Treatment Clinical Notes February, Type 2 diabetes mellitus with hyperglycemia, without long-term current use of insulin (ICD-10 - E11.65) February, BMI 40.0-44.9, adult (ICD-10 - Z68.41) February, Hypertension (ICD-10 - I10) February, Mixed hyperlipidemia (ICD-10 - E78.2) February, CAD (coronary artery disease) (ICD-10 - I25.10) February, SANTANA (nonalcoholic steatohepatitis) (ICD-10 - K75.81) February, Albuminuria (ICD-10 - R80.9) February, Foot pain (ICD-10 - M79.673) February, Neuropathy (ICD-10 - G62.9) February, Metabolic syndrome X (ICD-10 - E88.81) [facility] Other 05-09-2023 Evaluation note* Encounter Date Diagnosis [...] last visit, continue with weight loss efforts [facility] Other 04-17-2023 NotePatient here for follow up [...] pain. All other systems reviewed and are negative.[facility] 01-23-2023 NoteCardiovascular Medicine [facility] SUBJECTIVE Chief Complaint Patient presents with [...] is currently at a weightloss program at [facility]. He is seeing the batch roller operator. 01/23/2023 He is down about 10lbs [...] Obesity Sleep apnea Type 2 diabetes mellitus ([facility]) Past Medical History: Diagnosis Date CAD (coronary artery disease) DM type 2 (diabetes mellitus, type 2) ([facility]) HLD (hyperlipidemia) HTN (hypertension) Neuropathy [...] Edema present. Left l (more content not included)...[facility] 01-20-2023 Evaluation note* Encounter Date Diagnosis [...] the following goals: Add flavors to vegetables [facility]* Encounter Date Diagnosis Assessment Notes Treatment Notes Treatment Clinical Notes Dec, Type 2 diabetes mellitus with hyperglycemia, without long-term current use of insulin (ICD-10 - E11.65) Dec, BMI 40.0-44.9, adult (ICD-10 - Z68.41) Dec, Hypertension (ICD-10 - I10) Dec, Mixed hyperlipidemia (ICD-10 - E78.2) Dec, CAD (coronary artery disease) (ICD-10 - I25.10) Dec, SANTANA (nonalcoholic steatohepatitis) (ICD-10 - K75.81) Dec, Albuminuria (ICD-10 - R80.9) Dec, Foot pain (ICD-10 - M79.673) Dec, Neuropathy (ICD-10 - G62.9) Dec, Metabolic syndrome X (ICD-10 - E88.81) [facility] Other 03-23-2023 NoteCARDIAC STRESS TEST Requesting Physician: [...] interpreted and reported nuclear myocardial perfusion imaging.[id number] NoteCardiovascular Medicine [facility] SUBJECTIVE Chief Complaint Patient presents with [...] is currently at a weightloss program at [facility]. He is seeing the batch roller operator. Patient Active Problem List Diagnosis Chest pain Chronic back pain Essential hypertension Gastroesophageal reflux disease Hyperlipidemia Neuropathy Obesity Sleep apnea Type 2 diabetes mellitus ([facility]) Past Medical History: Diagnosis Date CAD (coronary artery disease) DM type 2 (diabetes mellitus, type 2) ([facility]) HLD (hyperlipidemia) HTN (hypertension) Neuropathy [...] 26, K 4.2, G (more content not included)...[facility] NotePatient here for 6 mo follow up CAD, hypertension, and hyperlipidemia. He had routine labs 2 weeks ago, and had NARAYAN's in Jul 2022. He is now seeing a batch roller operator and a diabetic specialist [place] [facility]. Says his MILLER is unchanged from prior [...] pain. All other systems reviewed and are negative.[facility] 11-24-2022 Evaluation note* Encounter Date Diagnosis [...] following goals: 1) Increase vegetables at dinner [facility] Other 02-14-2023 Evaluation note* Encounter Date Diagnosis [...] him and his by Kamlesh Sparrow RN, [facility]. Reviewed cgm download 11/08/22-11/20/22: Avg glucose 171. >250-1%, >180-30%, 70-180-69%, <70-0%, <540%. CV 15..2%. [employer] VEGETABLE LOADER, SLABBER LIGHT-C, BC-ADM [facility] Other 02-10-2023 Evaluation note* Encounter Date Diagnosis Assessment Notes Treatment Notes Treatment Clinical Notes Nov, Abnormal weight gain (ICD-10 - R63.5) Nov, Hypertension (ICD-10 - I10) Nov, Mixed hyperlipidemia (ICD-10 - E78.2) Nov, CAD (coronary artery disease) (ICD-10 - I25.10) Nov, Type 2 diabetes mellitus with hyperglycemia, without long-term current use of insulin (ICD-10 - E11.65) Nov, SANTANA (nonalcoholic steatohepatitis) (ICD-10 - K75.81) Nov, BMI 40.0-44.9, adult (ICD-10 - Z68.41) Nov, Albuminuria (ICD-10 - R80.9) Nov, Foot pain (ICD-10 - M79.673) Nov, Neuropathy (ICD-10 - G62.9) Nov, Metabolic syndrome X (ICD-10 - E88.81) [facility] Other 01-30-2023 Evaluation note* Encounter Date Diagnosis [...] medication issues. 6. Prescriptions: Acarbose sent to [facility]. Sample baylee 2 cgm given today. 7. [...] see above Oct, Albuminuria (ICD-10 - R80.9) 7/22 m/a cr ratio 70 reviewed importance of glucose/bp control to prevent further nephropathy Oct, BMI 40.0-44.9, adult (ICD-10 - Z68.41) Heart healthy diet material was printed Pt reports has apt scheduled with Dr. Kelley for weight management Oct, Other Dong was giv en a sample Baylee 2 sensor and an office owned, loaner [place]. His phone was not compatible with Baylee 2 or 3, or Dexcom G6. He previously wore the Baylee 14 day system and did not need training on applying the device. I did train him on the use of the reader. He was vgiven samples of Grif [employer] Principal and Skin Tac to help keep the device in place. 45 minutes were spent educating the patient by Kamlesh Sparrow RN, [facility]. [facility] Other 01-10-2023 Evaluation note* Encounter Date Diagnosis [...] program2) Try roasted cronin peppers (recipe provided) [facility] Other 11-11-2022 NotePROCEDURE: XR FOOT RT MIN [...] Electronically authenticated by: BRITTNY MORALES Date: 2022-08-19 06:17[facility]11-02-2022 Evaluation note* Encounter Date Diagnosis [...] nuts or cheese + crackers -Only likes hong konger cheese,-Recommended 15g or less for snacks; so [...] likes those-Increase vegetable intake-Vegetables: corn, peas, carrots [facility] Other 10-19-2022 Evaluation note* Encounter Date Diagnosis [...] referral to Dr. Kelley for weight management [place] [facility] Other 08-31-2022 Evaluation note* Encounter Date Diagnosis [...] and his would cook it for him [facility] Other 07-14-2022 Evaluation note* Encounter Date Diagnosis [...] improved glycemia. Pt would likek referral to batch roller operator. Note pt has intolerance to glp1 [...] of glucose/bp control to prevent further nephropathy [facility] Other 01-13-2022 Evaluation note* Encounter Date Diagnosis [...] medication issues. 6. Prescriptions: [facility] Oct, Hyperlipidemia, unspecified hyperlipidemia type (ICD-10 - [...] brochure given today. Recommend call if interested. [facility] Other 10-13-2021 Evaluation note* Encounter Date Diagnosis Assessment Notes Treatment Notes Treatment Clinical Notes Jul, SANTANA (nonalcoholic steatohepatitis) (ICD-10 - K75.81) Jul, Other [facility] INDICATED ABOVE F/U HERE PRN [facility] Other Evaluation noteNo InformationNort [facility] Other Evaluation noteNo assessment information available [facility] Work Phone: [employer] note* Diagnosis Chronic toe pain, right foot- Primary 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, not stated as uncontrolled Class 3 severe obesity with serious comorbidity and body mass index (BMI) of 40.0 to 44.9 in adult, unspecified obesity type (HCC) documented in this [facility] Diagnosis Chronic toe pain, right foot- Primary 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, not stated as uncontrolled Dermatitis of lower extremity Complex regional pain syndrome type II of right lower limb Class 3 severe obesity with serious comorbidity and body mass index (BMI) of 40.0 to 44.9 in adult, unspecified obesity type (HCC) Chronic toe pain, right foot Complex regional pain syndrome type II of right lower limb documented in this encounter [facility] note* Diagnosis Adjustment disorder with depressed mood- Primary Complex regional pain syndrome type II of right lower limb Chronic toe pain, right foot Class 3 severe obesity with serious comorbidity and body mass index (BMI) of 40.0 to 44.9 in adult, unspecified obesity type (HCC) documented in this encounter [facility] note* Diagnosis Adjustment disorder with depressed mood- Primary Complex regional pain syndrome type II of right lower limb Chronic toe pain, right foot documented in this encounter [facility] general Narrative - Reported* Type Description Date [...] first metatarsal 11-16-18 Hospitalization History see above [facility] Other [facility] Narrative - Reported* Type Description Date [...] Foot Surgery 10/27/2021 Hospitalization History see above [facility] Other [facility] Narrative - Reported* Type Description Date [...] Foot Surgery 10/27/2021 Hospitalization History see above [facility] Other Summary Purpose Family History No Family [...] I83.811 Chief Complaint Referred By Dr. Ja Hickman For Stasis U I83.811 Dm Longer Time e11.65 Reason for Referral Specialty Diagnoses / Procedures Referred By Segundo t Referred To Contact Diagnoses Complex regional pain syndrome type II of right lower limb Chronic toe pain, right foot Class 3 severe obesity with serious comorbidity and body mass index (BMI) of 40.0 to 44.9 in adult, unspecified obesity type (HCC) Procedures PROVIDER ORDERED FOLLOW UP OFFICE/OUTPATIENT [facility] 60 MINUTES Chiqui Robles MD [address] [place] [address] Referral ID Status Reason Start Date Expiration Date Visits Requested Visits Authorized [id number] Authorized PCP Requested Referral 06/25/2024 04/24/2025 1 1 Specialty Diagnoses / Procedures Referred By Contac t Referred To Contact Infectious Diseases Diagnoses Dermatitis of lower extremity Procedures CONSULT TO INFECTIOUS DISEASES OFFICE/OUTPATIENT [facility] 60 MINUTES Herberth Araujo MD, PhD [address] [place] [address] Referral ID Status Reason Start Date Expiration Date Visits Requested Visits Authorized [id number] Authorized PCP Requested Referral 02/29/2024 02/28/2025 1 1 Specialty Diagnoses / Procedures Referred By Segundo t Referred To Contact Podiatry Diagnoses Chronic toe pain, right foot Painful diabetic neuropathy (HCC) Procedures CONSULT TO PODIATRY OFFICE/OUTPATIENT [facility] 60 MINUTES Francoise Singletary MD [address] [place] [address] Referral ID Status Reason Start Date Expiration Date Visits Requested Visits Authorized [id number] Authorized PCP Requested Referral 02/05/2024 02/04/2025 1 1 Specialty Diagnoses / Procedures Referred By Contac t Referred To Contact Neurology Diagnoses Chronic toe pain, right foot Painful diabetic neuropathy (HCC) Procedures CONSULT TO NEUROLOGY OFFICE/OUTPATIENT [facility] 60 MINUTES Francoise Singletary MD [address] [place] [address] Referral ID Status Reason Start Date Expiration Date Visits Requested Visits Authorized [id number] Authorized PCP Requested Referral 02/05/2024 02/04/2025 1 1 Specialty Diagnoses / Procedures Referred By Contac t Referred To Contact [facility] Diagnoses Chronic toe pain, right foot Painful diabetic neuropathy (HCC) Procedures [facility]ULT TO [facility]) OFFICE/OUTPATIENT [facility]DM 60 MINUTES Francoise Singletary MD [address] [place] [address] Referral ID Status Reason Start Date Expiration Date Visits Requested Visits Authorized [id number] Pending Review PCP Requested Referral 02/05/2024 02/04/2025 1 1 Additional Source Comments REASON FOR VISIT (unrecogniz ed section and content) Reason Comments Consult Rt foot Reason Comments Established Patient Medication Update Reason Comments Nurse Triage Call Reason Comments New Patient Specialty Diagnoses / Procedures Referred By Contac t Referred To Contact [facility] Diagnoses Complex regional pain syndrome type II of right lower limb Chronic toe pain, right foot Class 3 severe obesity with serious comorbidity and body mass index (BMI) of 40.0 to 44.9 in adult, unspecified obesity type (HCC) Procedures [facility]SULT TO [facility]) OFFICE/OUTPATIENT NEW [facility] MDM 60 MINUTES Herberth Araujo MD, PhD [address] [place] [address] Referral ID Status Reason Start Date Expiration Date Visits Requested Visits Authorized [id number] Pending Review PCP Requested Referral 04/03/2024 04/03/2025 1 1 Reason Comments Consult (unrecognized sect ion and content) No Status Records FoundNo Status Records FoundNo Status Records FoundNo Status Records FoundNo Status Records FoundNo Status Records FoundNo Status Records FoundNo Status Records FoundNo Status Records FoundNo Status Records FoundNo Status Records FoundNo Status Records FoundNo Status Records Found INFORMATION SOURCE (unrecogn ized section and content) DATE CREATED AUTHOR 02/20/2023 [facility] DATE CREATED AUTHOR AUTHOR'S ORGANIZ ATION 07/03/2023 [facility] DATE CREATED AUTHOR AUTHOR'S ORGANIZ ATION 11/22/2023 [facility] DATE CREATED AUTHOR AUTHOR'S ORGANIZ ATION 12/15/2023 [facility] DATE CREATED AUTHOR AUTHOR'S ORGANIZ ATION 03/09/2024 [facility] DATE CREATED AUTHOR AUTHOR'S ORGANIZ ATION 03/16/2024 [facility] DATE CREATED AUTHOR AUTHOR'S ORGANIZ ATION 05/09/2024 [facility] DATE CREATED AUTHOR AUTHOR'S ORGANIZ ATION 05/11/2024 [facility] DATE CREATED AUTHOR AUTHOR'S ORGANIZ ATION 05/14/2024 [facility] DATE CREATED AUTHOR AUTHOR'S ORGANIZ ATION 05/24/2024 Byrd Lu[facility] Care Teams (unrecognized sec tion and [...] September 11, 2023 End: September 11, 2023 Flag Signalman Relationship Specialty Start Date End Date Miguelangel Mac MD [address] [place] [address] [address] [place] [address] Referring Pain Management 01/29/24 Flag Signalman Relationship Specialty Start Date End Date Miguelangel Mac MD [address] [place] [address] Referring Pain Management 01/29/24 Flag Signalman Relationship Specialty Start Date End Date Miguelangel Mac MD [address] [place] [address] Referring Pain Management 01/29/24 Flag Signalman Relationship Specialty Start Date End Date Miguelangel Mac MD [address] [place] [address] Referring Pain Management 01/29/24 Flag Signalman Relationship Specialty Start Date End Date Haider Hickman MD [address] [place] [id number] PCP - General Family Medicine 03/26/24 Miguelangel Mac MD [address] [place] [address] Referring Pain Management 01/29/24 Flag Signalman Relationship Specialty Start Date End Date Haider Hickman MD [address] [place] [address] [id number] PCP - General Family Medicine 03/26/24 Miguelangel Mac MD [address] [place], [place] [phone] Referring Pain Management 01/29/24 Flag Signalman Relationship Specialty Start Date End Date Haider Hickman MD [address] [place], [place] [phone] PCP - General Family Medicine 03/26/24 Miguelangel Mac MD [address] [place] [address] Referring Pain Management 01/29/24 Flag Signalman Relationship Specialty Start Date End Date Haider Hickman MD [address] [place], [place] [phone] PCP - General Family Medicine 03/26/24 Miguelangel Mac MD [address] [place] [address] Referring Pain Management 01/29/24 Goals (unrecognized section and content) Goals may be documented in a n alternate section Source Comments (unrecognize d section and content) In the event this informatio n is protected by the Federal Confidentiality of Alcohol and Drug Abuse Patient Records regulations: The Federal rules restrict any use of the information to criminally investigate or prosecute any alcohol or drug abuse patient.[facility] the event this information is protected by the Federal Confidentiality of Alcohol and Drug Abuse Patient Records regulations: The Federal rules restrict any use of the information to criminally investigate or prosecute any alcohol or drug abuse patient.[facility] the event this information is protected by the Federal Confidentiality of Alcohol and Drug Abuse Patient Records regulations: The Federal rules restrict any use of the information to criminally investigate or prosecute any alcohol or drug abuse patient.[facility] the event this information is protected by the Federal Confidentiality of Alcohol and Drug Abuse Patient Records regulations: The Federal rules restrict any use of the information to criminally investigate or prosecute any alcohol or drug abuse patient.[facility] the event this information is protected by the Federal Confidentiality of Alcohol and Drug Abuse Patient Records regulations: The Federal rules restrict any use of the information to criminally investigate or prosecute any alcohol or drug abuse patient.[facility] the event this information is protected by the Federal Confidentiality of Alcohol and Drug Abuse Patient Records regulations: The Federal rules restrict any use of the information to criminally investigate or prosecute any alcohol or drug abuse patient.[facility] the event this information is protected by the Federal Confidentiality of Alcohol and Drug Abuse Patient Records regulations: The Federal rules restrict any use of the information to criminally investigate or prosecute any alcohol or drug abuse patient.[facility] the event this information is protected by the Federal Confidentiality of Alcohol and Drug Abuse Patient Records regulations: The Federal rules restrict any use of the information to criminally investigate or prosecute any alcohol or drug abuse patient.[facility] FOR RECORDS PERTAINING TO PATIENTS WHO ARE [...] BE BASED ON THE PRIMARY CLINICAL RECORDS. [facility] [employer] [facility]. provides no warranty or guarantee of the accuracy or completeness of information in this document.
--- NOTE | 2024-05-24 23:15 | ED.UPPEXIN1 ---
HPI HPI - Extremity Injury (Upper) General Chief Complaint: Extremity Injury, Upper Stated Complaint: FALL/LT SHOULDER INJURY Time Seen by Provider: 05/24/24 23:12 History of Present Illness HPI narrative: 73-year-old male presents for pain to his left shoulder. He fell about 2 hours ago and landed on his shoulder. He sustained an abrasion to his left forearm and he had a tetanus shot less than 10 years ago. He did not hit his head and sustained no other injuries. It hurts a great deal to move his shoulder. Related Data Home Medications ?Medication ?Instructions ?Recorded ?Confirmed acarbose 50 mg tablet 50 mg PO TID 05/24/23 12/04/23 aspirin 81 mg tablet,delayed 81 mg PO DAILY 05/24/23 12/04/23 release (Adult Aspirin Regimen) bupropion HCl 150 mg tablet,12 hr 150 mg PO DAILY 05/24/23 12/04/23 sustained-release losartan 50 mg tablet 75 mg PO DAILY 05/24/23 12/04/23 metoprolol tartrate 50 mg tablet 50 mg PO BID 05/24/23 12/04/23 (Lopressor) nitroglycerin 0.4 mg sublingual 0.4 mg sublingual Q5M 05/24/23 12/04/23 tablet pioglitazone 30 mg tablet 60 mg PO DAILY 05/24/23 12/04/23 simvastatin 40 mg tablet 40 mg PO DAILY 05/24/23 12/04/23 sitagliptin phosphate 50 mg tablet 50 mg PO DAILY 05/24/23 12/04/23 (Januvia) sodium bicarbonate 650 mg tablet 650 mg PO TID PRN stomach upset 05/24/23 12/04/23 tizanidine 4 mg tablet 4 mg PO DAILY PRN muscle spasticity 05/24/23 12/04/23 venlafaxine 37.5 mg 37.5 mg PO BID 05/24/23 12/04/23 capsule,extended release 24 hr Previous Rx's ?Medication ?Instructions ?Recorded acetaminophen 300 mg-codeine 30 mg 1 tab PO Q6H PRN pain 5 days #20 05/25/24 tablet tabs Allergies Allergy/AdvReac Type Severity Reaction Status Date / Time cefuroxime Allergy Verified 12/04/23 08:12 celecoxib [From Celebrex] Allergy Verified 12/04/23 08:12 diflunisal [From Dolobid] Allergy Verified 12/04/23 08:12 dulaglutide [From Trulicity] Allergy Verified 12/04/23 08:12 liraglutide [From Victoza] Allergy Verified 12/04/23 08:12 metformin Allergy Verified 12/04/23 08:12 naproxen [From Naprosyn] Allergy Verified 12/04/23 08:12 NSAIDS (Non-Steroidal Allergy Verified 12/04/23 08:12 Anti-Inflamma rofecoxib [From Vioxx] Allergy Verified 12/04/23 08:12 sulindac [From Clinoril] Allergy Verified 12/04/23 08:12 axetil Allergy Uncoded 12/04/23 08:12 Opioid HPI Opioid Management Most Recent Pain and Opioid Data: Last Pain Scale 9 05/24/24 23:23 Review of Systems ROS Narrative A ten point review of systems is negative except as noted above. PFSH PFS Medical History H/O nephrolithotomy with removal of calculi ?Z98.890 - Other specified postprocedural states (ICD-10) ?Z87.442 - Personal history of urinary calculi (ICD-10) Osteoarthritis ?M19.90 - Unspecified osteoarthritis, unspecified site (ICD-10) Amputation of toe ?S98.139A - Complete traumatic amputation of one unspecified lesser toe, initial encounter (ICD-10) H/O renal calculi ?Z87.442 - Personal history of urinary calculi (ICD-10) Obstructive sleep apnea on CPAP ?G47.33 - Obstructive sleep apnea (adult) (pediatric) (ICD-10) Neck pain ?M54.2 - Cervicalgia (ICD-10) Low back pain ?M54.50 - Low back pain, unspecified (ICD-10) Obesity ?E66.9 - Obesity, unspecified (ICD-10) Diabetes ?E11.9 - Type 2 diabetes mellitus without complications (ICD-10) Enlarged prostate ?N40.0 - Benign prostatic hyperplasia without lower urinary tract symptoms (ICD-10) Hypertension ?I10 - Essential (primary) hypertension (ICD-10) Surgical History H/O heart artery stent ?Z95.5 - Presence of coronary angioplasty implant and graft (ICD-10) Exam Narrative Exam Narrative: Nurses note and vital signs reviewed and patient is not hypoxic. General: The patient appears uncomfortable. He is holding his left arm with the elbow flexed and his upper arm by his side. Skin: Warm, dry, no pallor noted. There is no rash noted. Superficial abrasion present on the left forearm. Head: Normocephalic, atraumatic Eye: Normal conjunctiva, no drainage Ears, Nose, Mouth, and Throat: oral mucosa is moist. Nares patent. Cardiovascular: Regular Rate and Rhythm Respiratory: Patient is in no distress, no accessory muscle use, lungs are clear to auscultation, no wheezing, rales or rhonchi Back: non-tender GI: Obese and nontender Musculoskeletal: Left shoulder has limited range of motion because of discomfort. Left elbow and wrist are nontender. Radial pulse 2+. Neurological: A&O, normal speech Psychiatric: Cooperative Constitutional Vital Signs, click to edit/add: Last Vital Signs Temp 98.9 F 05/24/24 23:13 Pulse 65 05/24/24 23:13 Resp 20 05/24/24 23:13 BP 162/76 H 05/24/24 23:13 Pulse Ox 96 05/24/24 23:13 O2 Del Method Room Air 05/24/24 23:13 Course Vital Signs Vital signs: Vital Signs Temperature 98.9 F 05/24/24 23:13 Pulse Rate 65 05/24/24 23:13 Respiratory Rate 20 05/24/24 23:13 Blood Pressure 162/76 H 05/24/24 23:13 Pulse Oximetry 96 05/24/24 23:13 Oxygen Delivery Method Room Air 05/24/24 23:13 Temperature 98.9 F 05/24/24 23:13 Pulse Rate 65 05/24/24 23:13 Respiratory Rate 20 05/24/24 23:13 Blood Pressure 162/76 H 05/24/24 23:13 Pulse Oximetry 96 05/24/24 23:13 Oxygen Delivery Method Room Air 05/24/24 23:13 MDM - Extremity Injury (Upper) Differential Diagnosis Differential diagnosis: Likely other (Fracture, dislocation, rotator cuff and) Imaging Data Left shoulder x-ray: Radiologist's impression: Procedure: XR shoulder LT min 2V XR shoulder LT min 2V, 05/24/2024 10:39 PM CDT: History: fall. . Comparison: None. Technique: 3 views left shoulder Findings/Impression: There is no acute fracture or malalignment. There is mild degenerative change of the left glenohumeral and acromioclavicular joints. The soft tissues are normal. Electronically authenticated by: LAURYN WILLIAM Date: 05/25/2024 00:21 Discharge Plan Discharge Stand Alone Forms: Portal Instructions Chief Complaint: Extremity Injury, Upper Clinical Impression: Injury of left rotator cuff Patient Disposition: Home, Self-Care Time of Disposition Decision: 00:32 Condition: Good Mode of Transportation: Private Vehicle Prescriptions / Home Meds: New acetaminophen-codeine 300-30 mg tablet 1 tab PO Q6H PRN (Reason: pain) 5 Days Qty: 20 0RF No Action metoprolol tartrate [Lopressor] 50 mg tablet 50 mg PO BID bupropion HCl 150 mg tablet sustained-release 12 hr 150 mg PO DAILY venlafaxine 37.5 mg capsule,extended release 24hr 37.5 mg PO BID acarbose 50 mg tablet 50 mg PO TID Januvia 50 mg tablet 50 mg PO DAILY sodium bicarbonate 650 mg tablet 650 mg PO TID PRN (Reason: stomach upset) aspirin [Adult Aspirin Regimen] 81 mg tablet,delayed release (DR/EC) 81 mg PO DAILY losartan 50 mg tablet 75 mg PO DAILY simvastatin 40 mg tablet 40 mg PO DAILY tizanidine 4 mg tablet 4 mg PO DAILY PRN (Reason: muscle spasticity) pioglitazone 30 mg tablet 60 mg PO DAILY nitroglycerin 0.4 mg tablet, sublingual 0.4 mg sublingual Q5M Rx Instructions: do not exceed 3 doses per episode Print Language: Brazilian Instructions: Rotator Cuff Injury (ED) Additional Instructions: Follow-up with your established orthopedist, Dr. Sanchez Referrals: HAIDER HICKMAN [Primary Care Provider] - 1 week
--- NOTE | 2024-05-24 23:21 | XR_ITS ---
The [address] [address] Patient Name: LUISITO WHITMORE MRN: [id number] date: 1950 Sex: M Assigned Patient Location: ER Current Patient Location: ER Accession/Order Number: [id number] Exam Date: 05/24/2024 23:39 Report Date: 05/25/2024 00:21 At the request of: AGUSTÍN RUIZ Procedure: XR shoulder LT min 2V XR shoulder LT min 2V, 05/24/2024 10:39 PM CDT: History: fall. . Comparison: None. Technique: 3 views left shoulder Findings/Impression: There is no acute fracture or malalignment. There is mild degenerative change of the left glenohumeral and acromioclavicular joints. The soft tissues are normal. Electronically authenticated by: LAURYN WILLIAM Date: 05/25/2024 00:21
[2024-05-25] MEDS: ACETAMINOPHEN 300 MG/ 30 MG CODEINE TABLET 2 TAB PO (00:45)
== END 2024-05-25 00:56 | disposition home or self-care (01) ==
PROVIDERS: Emergency Provider Emergency Medicine; PCP Family Medicine
DX: S46.002A Unspecified injury of muscle(s) and tendon(s) of the rotator cuff of left shoulder, initial encounter (principal); W19.XXXA Unspecified fall, initial encounter
CPT/HCPCS: 73030; 99283

== ENCOUNTER 2024-07-04 08:24 | Outpatient (OUT) | payer MEDICARE, OTHER, SELFPAY ==
--- NOTE | 2024-07-04 08:26 | US_ITS ---
The [address] [address] Patient Name: LUISITO WHITMORE MRN: [id number] date: 1950 Sex: M Assigned Patient Location: Current Patient Location: Accession/Order Number: [id number] Exam Date: 07/04/2024 08:27 Report Date: 07/05/2024 06:28 At the request of: ARACELI ROME Procedure: US renal BI EXAM: US renal BI HISTORY: . Kidney Stone . COMPARISON: 10/31/2023 TECHNIQUE: Grayscale and color imaging was performed FINDINGS: Thinning of the right kidney demonstrates right kidney to measure 10.8 x 5.6 x 4.9 cm. Color-flow is noted. No solid renal cortical masses or hydronephrosis is noted. Left kidney measures 11.3 x 4.5 x 5.2 cm. Color-flow is noted. No solid renal cortical masses or hydronephrosis is noted. There is a 1.3 x 0.9 cm cyst involving the upper pole of the left kidney. The bladder was incompletely distended with a volume of 75 mL. Grossly no masses are noted US/US renal BI IMPRESSION: 1. Normal-appearing right kidney. The previously noted calculus in the right kidney is not appreciated on today's exam. 2. Left renal cortical cyst. This is unchanged. The previously noted calculus in the left kidney is not appreciated on today's exam. 3. The bladder is grossly unremarkable. Electronically authenticated by: MORGAN AGUILAR Date: 07/05/2024 06:28
--- OUTSIDE RECORDS SUMMARY | 2024-07-04 08:46 | XMS_ITS | CCD ---
Author Organization [facility] Care Team Providers Care Library Acquisitions Technician Name Role Phone Joaquina Morgan Unavailable Aldo Middleton Unavailable Carito West Unavailable [...] DR SCARLET [place] Primary Care Unavailable MARY APARICIO Attending Unavailable MARY APARICIO Admitting Unavailable MARY APARICIO Consulting Unavailable MARY APARICIO Consulting Unavailable JOHNSON ., DR SCARLET [place] Primary Care Unavailable MARY APARICIO Attending Unavailable MARY APARICIO Admitting Unavailable JOHNSON ., DR SCARLET [place] [...] Unavailable SU, DR MORGAN Miranda Consulting Unavailable DR BRITTNY MORALES Consulting Unavailable [...] [place] Attending Unavailable JOHNSON ., DR SCARLET [place] Admitting Unavailable Eligio Soni Unavailable MD Daniel Everett Attending Provider MD Scarlet Johnson Primary Care Provider MD Eligio Soni Attending Provider [phone] MD Scarlet Johnson Primary Care Provider MD Daniel Everett Attending Provider [phone] Eligio Soni Admitting UnavailEligio aPtel Attending UnavailScarlet Valerio Primary Care Unavailable Daniel Everett Admitting Unavailable Daniel Everett Attending Unavailable Scarlet Johnson Primary Care Unavailable Terry Kelley Attending Unavailable Scarlet Johnson Primary Care Unavailable Terry Kelley Admitting Unavailable Bubba SCHUSTER, Andrius Louis Attending Unavailable Bubba SCHUSTER, Andrius Vlluvia Attending Unavailable Bubba SCHUSTER, Andrius Vytsandy Attending Unavailable Bubba SCHUSTER, Andrius Vytautmariann Attending Unavailable Bubba SCHUSTER, Andrius Vytautmariann Attending Unavailable Bubba SCHUSTER, Andrius Vytautmariann Attending Unavailable Bubba SCHUSTER, Andrius Unavailable Haider Hickman. Attending Unavailable Haider Hickman Admitting Unavailable Haider Hickman MD Primary Care Provider HERBERTH ARAUJO Referring Unavailable CHIQUI ROBLES Attending Unavailable HAIDER HICKMAN Primary Care Unavailable CHIQUI ROBLES Referring Unavailable TRINIDADMORGAN P Attending Unavailable HAIDER HICKMAN E Primary Care Unavailable FRANCOISE SINGLETARY Attending Unavailable MEKHAIL, HERBERTH A Attending Unavailable MEKHAIL, HERBERTH A Attending Unavailable MEKHAIL, HERBERTH A Admitting Unavailable Ross, Haider Bee Attending Unavailable Ross, Haider [place]. Attending Unavailable Ross, Haider Bee Attending Unavailable Ross, Haider ESuzie Attending Unavailable COOK, Araceli P Admitting Unavailable COOK, Araceli P Referring Unavailable COOK, Araceli P Attending Unavailable Ross, Haider [place]. Attending Unavailable Ross, Haider E. Admitting Unavailable Ross, Haider ESuzie Attending Unavailable Ross, Haider ESuzie Admitting Unavailable MouranyKaleb Attending Unavailable COOK, Araceli P Referring Unavailable COOK, Araceli P Attending Unavailable COOK, Araceli P Admitting Unavailable COOK, Araceli P Referring Unavailable COOK, Araceli P Attending Unavailable COOK, Araceli P Admitting Unavailable COOK, Araceli P Attending Unavailable COOK, Araceli P Attending Unavailable COOK, Araceli P Attending Unavailable Ross, Haider Bee Attending Unavailable Ross, Haider [place]. Attending Unavailable Ross, Haider Bee Attending Unavailable Ross, Haider E. Referring Unavailable Ross, Haider Bee Attending Unavailable Ross, Haider Bee Attending Unavailable Ross, Haider Bee Attending Unavailable DAVID ACOSTA A Attending Unavailable Dolce, Kajal R Attending Unavailable Dolce, Kajal R Attending Unavailable Dolce, Kajal R Attending Unavailable REFERRAL, SELF Referring Unavailable MARY APARICIO Attending Unavailable ANDREA AGUILAR Attending Unavailable ANDREA AGUILAR Attending Unavailable APLING, MIHIR Blank Attending Unavailable APLING, MIHIR Blank Referring Unavailable MACY MCPHERSON Attending Unavailable BROWNANDREA A Attending Unavailable BROWNANDREA A Attending Unavailable APLING, MIHIR B Attending Unavailable APLING, MIHIR B Attending Unavailable BROWNANDREA A Attending Unavailable DOLCE, HYACINTH Stoner Attending Unavailable DOLCE, HYACINTH Stoner Referring Unavailable DOLCE, KAJAL R Attending Unavailable APLING, MIHIR B Attending Unavailable Allergies Allergy Classification Reported Allergen(s) Allergy Type Date of Onset Reaction(s) Facility (20 sources) Cefuroxime; Translations: [cefuroxime] Drug Allergy 06-09-20 Unknown [facility] (20 sources) celecoxib; Translations: [CELECOXIB] Drug Allergy 06-09-20 Unknown [facility] (20 sources) Diflunisal; Translations: [DIFLUNISAL] Drug Allergy 06-09-20 21 Unknown [facility] (20 sources) dulaglutide Drug Allergy 09-11-20 Unknown, g/i [facility] (20 sources) Ibuprofen Drug Allergy Unknown [employer] Other (20 sources) liraglutide; Translations: [LIRAGLUTIDE] Drug Allergy 11-25-19 stomach upset [facility] (20 sources) metFORMIN; Translations: [metFORMIN] Drug Allergy 06-09-20 stomach upset [facility] (20 sources) Naproxen; Translations: [NAPROXEN] Drug Allergy 06-09-20 Unknown [facility] (20 sources) Sulindac; Translations: [Clinoril] Drug Allergy 07-10-20 15 Unknown [facility] Repository (1 source) Cefuroxime Drug Allergy 07-13-20 16 [facility] Rep[facility] (3 sources) celecoxib; Translations: [CeleBREX] Drug Allergy 07-10-20 15 [facility] (3 sources) liraglutide; Translations: [Victoza] Drug Allergy [facility] (1 source) metFORMIN Drug Allergy 06-15-20 17 [facility] (3 sources) Naproxen; Translations: [Naprosyn] Drug Allergy 07-10-20 15 [facility] (3 sources) NSAIDs; Translations: [NSAIDS (NON-STEROIDAL ANTI-INFLAMMATORY DRUG)] Drug allergy (disorder) 07-10-20 15 [facility] Rep[facility] (3 sources) Povidone-Iodine; Translations: [Dolobid] Drug Allergy 07-10-20 15 [facility] Rep[facility] (4 sources) Cephalosporins (Antibiotic); Translations: [Cephalosporins] Propensity to adverse reactions 05-29-20 18 Unknown Reaction [facility] (2 sources) Ibuprofen; Translations: [ibuprofen] Drug Allergy 09-11-20 [facility] (3 sources) Sulindac; Translations: [sulindac] Drug Allergy 06-09-20 [facility] (1 source) Cefuroxime Drug Allergy 09-11-20 [facility] Rep[facility] (1 source) celecoxib Drug Allergy 09-11-20 [facility] (1 source) Diflunisal Drug Allergy 09-11-20 [facility] Rep[facility] (1 source) dulaglutide Drug Allergy 09-11-20 [facility] (1 source) liraglutide Drug Allergy 09-11-20 [facility] (1 source) metFORMIN Drug Allergy 09-11-20 [facility] (1 source) Naproxen Drug Allergy 09-11-20 [facility] Repository (9 sources) Non-steroidal anti-inflammatory agent Drug Intolerance 02-05-20 [facility] (2 sources) Cefuroxime; Translations: [Cefuroxime Axetil] Drug Allergy [facility] Repository (2 sources) dulaglutide; Translations: [Trulicity] Drug Allergy [facility] Repository (2 sources) Niacin; Translations: [niacin] Drug Allergy [facility] Repository (2 sources) NSAIDs; Translations: [NSAIDs] Propensity to adverse reactions (disorder) [facility] Repository (2 sources) rofecoxib; Translations: [Vioxx] Drug Allergy [facility] Repository (1 source) rofecoxib; Translations: [ROFECOXIB] Drug Allergy 06-09-20 [facility] Repository Medications Current Medications Medication Drug Class(es) Dates Sig (Normalized) Sig (Original) acarbose 50 mg oral tablet (20 sources) alpha-Glucosidase Inhibitor Start: 02-05-2024 acarbose (PRECOSE) 50 mg tablet 02/05/2024 Active Start: 11-07-2022 take 1 tablet by jatin th three times daily before mealtime Acarbose 50 MG 1 tab before meals three times/day Orally as directed for 90 day(s) stop acarbose 25mg 30 Oct, 2022 Active Start: 05-29-2018 Acarbose Activ e TABLET [...] Take 81 mg by mouth once daily. Active take 1 tablet by jatin th every twenty-four hours Aspirin 81 MG 1 Tablet Orally Daily Active 24 hr buPROPion hydrochloride 300 mg extended release oral tablet (20 sources) Aminoketone Start: 02-05-2024 buPROPion XL ( WELLBUTRIN XL) 300 mg 24 hr tablet 02/05/2024 Active Start: 05-29-2018 Bupropion Hcl Active May 28, 2018 11:00pm Calcium + D3 600-200 MG-UNIT (20 sources) take 1 tablet by mouth once daily Calcium + D3 600-200 MG-UNIT 1 tablet with a meal Orally Once a day Active calcium carbonate 1500 mg / cholecalciferol 200 unt oral tablet (9 sources) Vitamin D calcium carbonat e 600 mg-cholecalciferol 200 units 600 mg-5 mcg (200 unit) tab Calcium 600 Active calcium carbonat e 600 mg-cholecalciferol 200 units [...] products, calcium, zinc, and/or iron-containing products Docosahexaenoate (9 sources) take 1200 mg by mouth twice daily DOCOSAHEXAENOIC ACID ORAL Fish Oil 1200mg BID Active take 1200 mg by mouth twice zheng y DOCOSAHEXAENOIC ACID ORAL Fish Oil 1200mg BID 0 Active fish oil/borage/flax/om3,6,9 1 (FISH,BORA,FLAX OILS-OM3,6,9NO1 ORAL) (9 sources) fish oil/borage/ flax/om3,6,9 1 (FISH,BORA,FLAX OILS-OM3,6,9NO1 ORAL) Take by mouth every 24 hours. Active fish oil/borage/ flax/om3,6,9 1 (FISH,BORA,FLAX OILS-OM3,6,9NO1 ORAL) Take by mouth [...] pen injector (1 source) Insulin Analog Start: 3 HumaLOG KwikPen 100 UNIT/ML 1:50 corrective scale ac tid Subcutaneous as directed for 30 days (expect up to 20 units/day) May, Active losartan potassium 50 mg oral tablet (20 sources) Angiotensin 2 Receptor Nathaly Start: take 1.5 tablets by mouth once losartan (COZAAR) 50 mg tablet Take 1.5 tablets by mouth every afternoon. 02/01/2024 Active take 1.5 mg by mouth once daily Losartan Potassium 50 MG 1.5 mg Orally Once a day Active take 1 tablet by jatin th every twenty-four hours Losartan Potassium 50 MG 1 tablet Orally Once a day Active Losartan Potassi um Active memantine hydrochloride 10 mg oral tablet (5 sources) P-xqkpir-O-aspartate Receptor Antagonist Start: 05-31-2024 take 1 tablet by mouth once daily memantine (NAMENDA) 10 mg tablet Indications: Complex regional pain syndrome type II of right lower limb Take 1 tablet by mouth once daily. 30 tablet 2 05/31/2024 Active Start: 04-24-2024 take 1 tablet by jatin th once daily memantine (NAMENDA) 5 mg tablet Take 1 tablet by mouth once daily. 30 tablet 3 04/24/2024 Active 24 hr metoprolol succinate 50 mg extended release oral tablet (20 sources) beta-Adrenergic Nathaly Start: 12-26-2023 take 1 tablet by mouth every twelve hours metoprolol succinate ER (TOPROL XL) 50 mg 24 hr tablet Take 1 tablet by mouth every 12 hours. 12/26/2023 Active Start: 05-29-2018 Metoprolol Tar trate Active TABLET May 28, 2018 11:00pm take 1 tablet by jatin every twenty-four hours Metoprolol Tartrate 100 MG 1 tablet with food Orally Daily Active take 1 tablet by jatin every twenty-four hours Metoprolol Tartrate 50 MG 1 Tablet Orally Daily Active Nitro Sublingual 0.4 (20 sources) Nitro Sublingual 0.4 Sublingual As Directed Active nitroglycerin 0.4 mg sublingual tablet (9 sources) Nitrate Vasodilator Start: nitroglycerin sublingual (NITROQUICK) 0.4 mg SL tablet 04/19/2022 Active Woden 5-Rqv-Upo-Fish Oil (Fish Oil) 1,000 mg (120 mg-180 mg) Capsule (2 sources) Start: 018 Woden 2-Ncm-Uzy-Fish Oil (Fish Oil) 1,000 mg (120 mg-180 mg) Capsule Active May 28, 2018 11:00pm oxybutynin chloride 5 mg oral tablet (2 sources) Cholinergic Muscarinic Antagonist Start: take 5 mg by mouth twice daily Oxybutynin Chloride Active 5 MG PO Twice daily 60 June 06, 2018 11:00pm pioglitazone 30 mg oral tablet (20 sources) Peroxisome Proliferator Receptor alpha Agonist, Peroxisome Proliferator Receptor gamma Agonist, Thiazolidinedione Start: 024 take 1 tablet by mouth once pioglitazone (ACTOS) 30 mg tablet Take 1 tablet by mouth every afternoon. 12/03/2023 [facility] Pioglitazone HCl 30 MG 1 tablet Orally Once a day Active take 2 tablets by [facility] every twenty-four hours Pioglitazone HCl 15 MG [...] Take 40 mg by mouth every evening. 01/01/2024 Active take 1 tablet by jatin th every twenty-four hours Simvastatin 40 MG 1 tablet in the evenin g Orally Once a day for 30 day(s) Active SITagliptin 100 mg oral tablet (20 sources) Dipeptidyl Peptidase 4 Inhibitor Start: 01-23-2024 take 1 tablet by mouth once JANUVIA 100 mg tablet Take 1 tablet by mouth every afternoon. 01/23/2024 Active Start: 05-29-2018 Sitagliptin Ph osphate [...] Active sodium bicarbonate 650 mg oral tablet (11 sources) Start: 01-28-2024 take 2 tablets by mouth three times daily sodium bicarbonate 650 mg tablet TAKE 2 TABLETS BY MOUTH 3 TIMES A DAY FOR 90 DAYS 01/28/2024 Active Start: 05-29-2018 Sodium Bicarbo farhat Active TABLET May 28, 2018 11:00pm tiZANidine 4 mg oral tablet (20 sources) Central alpha-2 Adrenergic Agonist Start: 01-22-2024 take 1 tablet by mouth every eight hours as needed tiZANidine (ZANAFLEX) 4 mg tablet Take 4 mg by mouth three times a day as needed. 01/22/2024 Active take 1 tablet by mouth [...] 1 tablet by mouth every 12 hours. 12/03/2023 Active Start: 05-29-2018 Venlafaxine Ac tive [...] Orally once a day Active FreeStyle Baylee Bazine - (7 sources) FreeStyle Baylee Bazine - use with baylee sensor SQ daily for 365 days has but not using Not-Taking FreeStyle Baylee Sensor Syste m - (7 sources) FreeStyle Baylee Sensor System - use with baylee reader SQ change every 10 days for 90 days has but not usint Not-Taking Problems Active Problems Problem Classification Problem Date Documented Da te Episodic/Chronic Adjustment disorders (3 sources) Adjustment disorder with depressed mood; Translations: [...] Coronary arteriosclerosis; Translations: [Atherosclerotic heart disease of [place] coronary artery without angina pectoris] Onset: 12-30-2022 Chronic Diabetes mellitus with complications (20 sources) Hyperglycemia due to type 2 diabetes mellitus; Translations: [Type 2 diabetes mellitus with hyperglycemia] Onset: 10-21-2021 Resolved: 04-21-2022 Chronic Disorders of lipid metabolism (20 sources) [...] steatohepatitis (SANTANA)] Onset: 07-21-2021 Resolved: 07-21-2021 Chronic Nonspecific chest pain (1 source) Precordial pain; Translations: [PRECORDIAL PAIN] Onset: 01-01-2023 Episodic Nutritional deficiencies (20 sources) Vitamin D deficiency; Translations: [Vitamin D deficiency, unspecified] Chronic Other aftercare (1 source) long-term (current) use of aspirin; Translations: [LAUNDROMAT WORKER CURRENT USE OF ASPIRIN] Onset: 02-20-2023 Episodic Other aftercare (1 source) Other moth 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 (current) drug therapy; Translations: [OTH LAUNDROMAT WORKER CURRENT DRUG THERAPY] Onset: 02-20-2023 Episodic Other aftercare (6 sources) Long-term current use of insulin; Translations: [long-term (current) use of insulin] Episodic Other aftercare (1 source) terminal clerk (current) use of insulin Episodic Other connective tissue disease (3 sources) Pain in unspecified foot Episodic Other connective tissue disease (4 sources) Impingement syndrome of right shoulder; Translations: [IMPINGEMENT SYNDROME RIGHT SHOULDER] Onset: 12-09-2022 Episodic Other connective tissue disease (10 sources) Chronic pain of right foot; Translations: [...] of) liver, not elsewhere classified] Chronic Other lower respiratory disease (1 source) Other forms of dyspnea; Translations: [OTHER FORMS OF DYSPNEA] Onset: 01-01-2023 Episodic Other nervous system disorders (20 sources) Neuropathy; Translations: [Polyneuropathy, unspecified] Chronic Other nervous system disorders (3 sources) Polyneuropathy, unspecified Chronic Other nervous system disorders (9 sources) Complex regional pain syndrome type II [...] Chronic Other nutritional; endocrine; and metabolic disorders (12 sources) Body mass index (BMI) 40.0-44.9, adult; [...] Chronic Other nutritional; endocrine; and metabolic disorders (12 sources) Severe obesity; Translations: [Morbid (severe) obesity due to excess calories] Onset: 02-05-2024 02-05-2024 Chronic Other nutritional; endocrine; and metabolic disorders (1 source) Morbid (severe) obesity due to excess calories; Translations: [Class 3 severe obesity with serious comorbidity and body mass index (BMI) of 40.0 to 44.9 in adult, unspecified obesity type (HCC)] Onset: 02-05-2024 Chronic Other nutritional; endocrine; and metabolic [...] Classification Problem Date Documented Da te Episodic/Chronic Other connective tissue disease (4 sources) Pain in right foot; Translations: [PAIN IN RIGHT FOOT] Onset: 08-18-2022 Episodic Other diseases of kidney and ureters (4 sources) Cyst of kidney, acquired; Translations: [CYST OF KIDNEY ACQUIRED] Onset: 2022 Episodic Unclassified (1 source) CHRN KIDNEY DISEASE STG 3 UNSP; Translations: [CHRN KIDNEY DISEASE STG 3 UNSP] Onset: 11-08-2022 Results Test Name Value Interpretation Reference Range Facility Office Visiton 06-26-2024 Follow-up visit [id number] Dong Whitmore 1950 Date Provider Department Center 06/26/2024 MARY GRIFFIN D[facility] Family History Problem Relation Age of Onset Coronary artery disease Other Diabetes Other Family Status - Relation Status Age at Other Level of Service:47795 [place] OFFICE/OUTPATIENT ESTABLISHED MOD MDM 30 MIN Reason for Visit and Comments: Coronary Artery Disease [187] Hypertension [489710] Normal [facility] Ambulatory Visit Summaryon 0 05-31-2024 Ambulatory Visit Summary Ambulatory Visit Summary DONG WHITMORE :1950 Visit Date:05/13/2024 Ambulatory Visit Instructions Your Diagnosis Encounter for annual wellness visit (AWV) in Medicare patient Major depressive disorder, 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 Stage 3a chronic kidney disease Type 2 diabetes mellitus with stage 3a chronic kidney disease and hypertension Hypertensive chronic kidney disease with stage 1 through stage 4 chronic kidney disease, or unspecified chronic kidney disease Type 2 diabetes mellitus with peripheral vascular disease 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 This Is Your Medications List [facility] [place] Prescription (Eric Prather, 5 years.) acarbose (acarbose 25 mg oral tablet) aspirin (aspirin 81 mg Oral EC Tab) buPROPion (buPROPion 300 mg/24 hours ER Tab) calcium carbonate (calcium (as carbonate) 600 mg oral tablet) insulin aspart (NovoLog) losartan (losartan 50 mg Tab) memantine (memantine 5 mg Tab) metoprolol (metoprolol 50 mg ER Tab) nitroglycerin (nitroglycerin 0.4 mg sublingual Tab) omega-3 polyunsaturated fatty acids (Fish Oil 1200 mg oral capsule) pioglitazone (pioglitazone 30 mg Tab) potassium chloride (Potassium Chloride (Myw-Efow-Diy M20) 20 mEq oral tablet, extended release) [...] stent in cardiac conduit, Stimulator. Discharge Vitals Heart Rate (Peripheral) 65 Respiratory Rate 14 Blood Pressure 138/70 Height 171 cm Height 67 in Weight 121.65 kg Weight 267.63 lb BMI 41.6 What to do next Scheduled Follow-Up Appointments Monday 9:15 AM EDT With: Araceli BERMUDEZ MD Where: [facility] [address], [address] [place] [address]- Monday 3:30 PM EST With: Haider Hickman MD Where: [address] [address]- Monday 10:30 AM EST With: Araceli BERMUDEZ MD Where: [facility] [address], [address] [place] [address]- 2024 8:00 AM EDT With: Where: [facility] [place] [id number]- Medications What How Much When Why Instructions Unchanged acarbose (acarbose 25 mg oral tablet) [...] times a day Unchanged Misc Prescription (Handicap Yamilka, 5 years.) See instructions Stage 3a chronic [...] Peripheral edema Handicap Placard, 5 years. Unchanged nitrog (more content not included)... Normal [facility] Medicine Office/Clini c Noteon 05-23-2024 Family Medicine [...] x 10 days Encouraged to leave the are JEAN CARLOS f/u with pcp after seen at wound clinic Ordered: clindamycin, 300 mg = 1 cap(s), Oral, BID, X 10 day(s), # 20 cap(s), Refills(s) 0, Pharmacy: [facility]/pharmacy #[id number], 169, cm, 05/22/24 14:52:00 EDT, Height/Length [...] day(s), # 20 cap(s), Refills(s) 0, Pharmacy: [facility]/pharmacy #[id number], 169, cm, 05/22/24 14:52:00 EDT, Height/Length Dosing, 122, kg, 05/22/24 14:52:00 EDT, Weight Dosing 3. Non-smoker (Z78.9: Other specified health status) Encouraged to continue as a non-smoker Ordered: clindamycin, 300 mg = 1 cap(s), Oral, BID, X 10 day(s), # 20 cap(s), Refills(s) 0, Pharmacy: [facility]/pharmacy #[id number], 169, cm, 05/22/24 14:52:00 EDT, Height/Length [...] Oral, BID (more content not included)... Normal [facility] Comment on above: Result Comment: Elec tronically Signed By: DAVID ACOSTA CNP\.br\Date and Time Signed: 05/23/24 12:59 EDT Ambulatory Visit Summaryon 0 05-22-2024 Ambulatory Visit Summary Ambulatory Visit Summary DONG WHITMORE Bo[place] :1950 Visit Date:05/22/2024 Ambulatory Visit Instructions Your Diagnosis Cellulitis of leg BMI 40.0-44.9, adult, Body mass index [BMI] 40.0-44.9, adult Non-smoker Class 3 severe obesity due to excess calories with body mass index (BMI) of 40.0 to 44.9 in adult Your Care Team Attending Physician - DAVID ACOSTA CNP Primary Care Physician - Haider Hickman MD. This Is Your Medications List [facility] [place] Prescription (Eric Prather, 5 years.) acarbose (acarbose [...] 30 mg Tab) potassium chloride (Potassium Chloride (Moz-Usgx-Pxo M20) 20 mEq oral tablet, extended release) [...] Follow-Up Appointments Monday 8:15 AM EDT With: Kajal Freeman DPM Where: [facility] Monday 9:15 AM EDT With: Araceli BERMUDEZ MD Where: [facility] [address], [address] [place] [address]- Monday 3:30 PM EST With: Haider Hickman MD Where: [facility] [address] [address]- Monday 10:30 AM EST With: AIDAN SCHUSTER, Araceli Treadwell Where: [facility] [place] [address], [address] [place] [address]- 2024 8:00 AM EDT With: Where: [facility] [address] [address]- Medications What How Much When Why Instructions New clindamycin (clindamycin 300 mg oral cap) 1 Capsules By Mouth 2 times a day Cellulitis of leg BMI 40.0-44.9, adult Non-smoker Class 3 severe obesity due to excess calories with body mass index (BMI) of 40.0 to 44.9 in adult Duration: 10 Days Pickup at [facility]/pharmacy #[id number] Unchanged acarbose (acarbose 25 mg oral tablet) [...] times a day Unchanged Misc Prescription (Handicap Yamilka, 5 years.) See instructions Stage 3a chronic [...] Unchanged nitroglyce (more content not included)... Normal [facility] Family Medicine Office/Clini c Noteon [...] : 14 br/min SpO2 : 95 % AidanDebra Charanjit Swanson 05/13/2024 10:35 EDT Chief Complaint [...] Rating Pain Score : 8 Debra Bermudez Charanjit Swanson 05/13/2024 9:39 EDT Hearing and Vision [...] : Living will, Medical durable power of employee benefits attorney Organ Donation Consent : Yes AidanDebra Charanjit Swanson 05/13/2024 9:39 EDT Procedures / [...] Last Reviewed Dt/Tm: 05/13/2024 09:44:11 EDT Location: [facility] ; Anesthesia Minutes: 0 ; Procedure [...] Dt/Tm: 05/13/2024 09:44:11 (more content not included)... [facility] Comment on above: Result Comment: Elec tronically Signed By: Haider Hickman MD.br\Date and Time Signed: 05/14/24 10:23 EDT\.br\Electronically Co-Signed By: Debra Bermudez.br\Date and Time Co-Signed: 05/13/24 13:04 EDT CNOVon 04-24-2024 CNOV Office Visit (NPRC21 ) DONG WHITMORE ([id number]) 1950 M Date Time Provider Department 04/24/24 9:00 AM CHIQUI ROBLES NPRC21 During your visit today, we recorded the following information about you: Pulse Blood pressure Weight Height 61/minute 122/89 122.5 kg 1.702 m Parish Rios MD 04/24/2024 11:26 AM Signed [facility] Neurological Cooter April 24, 2024 This is a face [...] Camacho Desimir, MD 04/24/2024 11:26 AM Signed [facility] STAFF PHYSICIAN NOTE OF PERSONAL INVOLVEMENT IN CARE IMPRESSION: Complex regional pain syndrome Adjustment Disorder Tried multiple injections, procedures, surgeries. No benefit Tried SCS and recently DRG without success. Discussed ketamine PLAN: Ketamine infusions Consider scrambler therapy Psych psychology Memantine 5mg Psychotherapy Add-on Progress Note Due to medical condition and comorbid psychological and behavioral concerns - psychotherapy was utilized during the visit. Yzja-mr-dinw time: [id number] (16-37 mins) actual time spend in psychotherapy [...] which included preparing to see the patient, bitb-ol-goro patient care, completing clinical documentation, performing a medically appropriate examination, and counseling and educating the patient/family/caregiv er. As noted, the patient's clinical situation is complex and serious with significant comorbidity of pain and functional limitations. This requires higher levels of time, intensity, and expense with longitudinal care and support. STAFF PHYSICIAN:: Chiqui Robles MD DATE of SERVICE: 04/24/2024 Referring Provider: HERBERTH ARAUJO [[id number]] Allergies As of Date: 04/24/2024 Noted Allergy [...] TO [facility] (CHRONIC PAIN) [7711286] Order #: [id number]: 1 PAIN RECOVERY FOLLOW UP ORDER [[id number]] Order #: [id number]: 1 FUTURE PROVIDER ORDERED FOLLOW UP [[id number]] Order #: [id number]: 1 FUTURE memantine (NAMENDA) 5 mg tabletTake 1 tablet by mouth once daily.Disp: 30 tabletRfl: 3 CONSULT TO KETAMINE FOR CHRONIC PAIN [9044] Order #: [id number]: 1 FUTURE Prescriptions as of 04/24/2024 - memantine (NAMENDA) 5 mg tablet Take 1 tablet by mouth once daily. - aspirin, enteric coated (ASPIRIN, ENTERIC COATED) 81 mg EC tablet Take 81 mg by mouth once daily. - fi (more content not included)... Normal [facility] BRIEF OP NOTon 04-03-2024 BRIEF OP NOT HNO ID: [id number] Author: CAPRICE DOWNING MD Service: Pain Management Author Type: Fellow Type: Brief Op Note Filed: 04/03/2024 10:35 Note Text: BRIEF OPERATIVE / PROCEDURE NOTE LOG ID: [id number] SURGERY/PROCEDURE DATE: 04/03/2024 PROCEDURE START TIME: 09 PROCEDURE END TIME: 1030 PRE-OP/PRE-PROCEDURE DIAGNOSIS: Chronic toe pain, right foot [M79.674, G89.29] Complex regional pain syndrome type II of right lower limb [G57.71] POST-OP/POST-PROCEDURE DIAGNOSIS: Chronic toe pain, right foot [M79.674, G89.29] Complex regional pain syndrome type II of right lower limb [G57.71] SURGEON(S)/PROCEDURALI ST(S) AND VECTOR CONTROL ASSISTANT(S): Surgeon(s) and Role: * Herberth Araujo MD, PhD - Primary * Caprice Downing MD No Additional Staff SURGERY/PROCEDURE(S): Attempted Right L4 and L5 Dorsal Root Ganglion Stimulator ANESTHESIA: Anxiolysis and Local anesthetic FINDINGS: None ESTIMATED BLOOD LOSS: Minimal SPECIMENS: None COMPLICATIONS: None Caprice Downing MD Pain Medicine Fellow April 03, 2024 Normal [facility] NURSING PROGon 04-03-2024 NURSING PROG HNO ID: [id number] Author: CAYETANO ROSALES RN Service: Nursing Author Type: Registered Nurse Type: Nursing Progress Note Filed: 04/08/2024 15:32 Note Text: Summary: Follow up phone call Follow up phone call made regarding outcome of procedure. No answer voicemail left - The patient was instructed to call [phone] with the percentage of pain relief and what activities have improved. Couple message also sent. [facility] NURSING PROG HNO ID: [id number] Author: SURINDER LARES RN Service: Nursing Author Type: Registered Nurse Type: Nursing Progress Note Filed: 04/09/2024 10:09 Note Text: Summary: Post Procedure Call Patient left voice mail. Team was unable to finish procedure due to patient was unable to stay still. No pain relief noted. Surinder Lares RN April 09, 2024 [facility] NURSING PROG HNO ID: [id number] Author: EMILEE HYDE RN Service: ? Author Type: Registered Nurse Type: Nursing Progress Note Filed: 04/03/2024 10:45 Note Text: Dr. Marian Downing (fellow) discusses reason why procedure was aborted today. Other options for pain management was discussed with patient and . Normal [facility] OPERATIVE NOon 04-03-2024 OPERATIVE NO HNO ID: [id number] Author: HERBERTH ARAUJO MD, PhD Service: Pain Management Author Type: Physician Type: Operative Report Filed: 04/03/2024 20:14 Note Text: OPERATIVE/PROCEDURE REPORT : LOG ID: [id number] SURGERY/PROCEDURE DATE: 04/03/2024 INCISION/PROCEDURE START TIME: 9:59 [...] Dorsal Root Ganglion Stimulator SURGEON(S)/PROCEDURALI ST(S) AND VECTOR CONTROL ASSISTANT(S): Surgeon(s) and Role: * Herberth Araujo MD, [...] ELECTRONIC SIGNATURE, Herberth Araujo MD, PhD Normal [facility] HISTORY PHYSICALon HISTORY PHYSICAL HNO ID: [id number] Author: HERBERTH ARAUJO MD, PhD Service: Pain Management Author Type: Physician Type: H&P Filed: 04/03/2024 09:33 Note Text: PROCEDURE EVALUATION AND HISTORY AND PHYSICAL EXAM SUBJECTIVE: Dong Whitmore is a 73 year old man who presents to [facility] for Right L4 and L5 Dorsal Root Ganglion Stimulator Trial. This is his first (1) procedure. Focused Review of Systems: PAIN: Denies any contraindications to the procedure including coagulopathy, infection, recent cerebral/myocardial infarct, and hemodynamic instability. 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 Current Outpatient Medications Medication [...] the patient's condition since the last [facility] visit: No Provisional Diagnosis: Chronic toe pain, right foot [M79.674, G89.29] Complex regional pain syndrome type II of right lower limb [G57.71] Planned Procedure: Right L4 and L5 Dorsal Root Ganglion Stimulator Trial Caprice Downing MD Pain Medicine Fellow April 03, 2024 Herberth Araujo MD, PhD Normal [facility] NURSING PROGon 04-01-2024 NURSING PROG HNO ID: [id number] Author: GILBERTO BAUTISTA RN Service: ? Author Type: Registered Nurse Type: Nursing Progress Note Filed: 04/01/2024 10:58 Note Text: [facility] Pre- Procedure Telephone Instructions Patient called to remind them of their appointment on 04/03/[address] Araujo Patient instructed to arrive at 0915 Message left: Yes Instructions given: 1. Do not eat or drink for 8 hours, however, you may have clear liquids up to 2 hours before the appointment. 2. A driver/refuse collector must be present who can drive you home. If you are coming by medical transport, you must have a responsible person other than the manager transportation with you. 3. Do you take [...] or cannot make the appointment by calling [phone] (Option 2). Normal [facility] Ambulatory Visit Summaryon 0 03-26-2024 Ambulatory Visit Summary DONG WHITMORE Boom :1950 Visit Date:03/26/2024 Ambulatory Visit Instructions Your [...] Care Team Attending Physician - Haider Hickman MD. Primary Care Physician - Haider Hickman MD. This Is Your Medications List Misc Prescription (Eric Prather, 5 years.) furosemide (Lasix 40 mg Tab) potassium chloride (Potassium Chloride (Gvu-Uajo-Hzj M20) 20 mEq oral tablet, extended release) [...] Appointments Monday 9:30 AM EDT With: Where: [facility] [place] Invalid Interpretation Code [address], [address] [place] [address]- \.br \ Monday 2:15 PM EST \.br\ With: Kristofer SCHUSTER, Haider Bee\.br\ Where: [facility] Medicine Office/Clini c Noteon 03-26-2024 Family Medicine Office/Clinic Note HPI Staff Dong [...] years., Suppl (more content not included)... Normal [facility] Comment on above: Result Comment: [...] numbers. This can be done either in [place] or metric measurements. Note that charts and online BMI calculators are available to help you find your BMI quickly and easily without having to do these calculations yourself. To calculate your BMI in [place] measurements: 1. Measure your weight in [...] for Disease Control and Prevention: www.cdc.gov ? [place] Heart Association: www.heart.org ? National Heart, Lung, and Blood Cooter: www.nhlbi.nih.gov Summary ? Body mass index (BMI) is a number that is calculated from a person's weight and height. ? BMI may help estimate how much of a person's weight is composed of fat. BMI can help identify those who may be at higher risk for certain medical problems. ? BMI can be measured using [place] measurements or metric measurements. ? BMI charts are used to identify whether you are underweight, normal weight, overweight, or obese. This information is not intended to replace advice given to you by your health care provider. Make sure you discuss any questions you have with your health care provider. Document Revised: 06/17/2020 Document Reviewed: 04/24/2020 [employer] Patient Education ? 2022 [place]. [facility] Sona 03-19-2024 HERRERAN Telephone (PAINMN) DONG WHITMORE ([id number]) 1950 M Date Time Provider Department 03/19/24 HERBERTH ARAUJO During your visit today, we recorded the following information about you: Emilee So, RN 03/19/2024 1:32 PM Signed Spoke with patient at request of oral surgery physician as patient has questions about referral to infectious disease. Patient states that he spoke with his PCP, Dr. Hickman ([phone]) who spoke with Dr. Vega in Infectious disease at [facility]. Dr. Hickman ordered lab work at the [...] Status:Closed by EMILEE SO on 03/21/24 Normal [facility] BMPon 03-08-2024 Anion gap [Moles/Vol] 14 mmol/L Normal 6-16 [facility] Comment on above: Performed By: #### 2 [id number] #### [facility] [address] [place] [address] Calcium [Mass/Vol] 9.4 mg/dL Normal 8.9-11.1 [facility] Comment on above: Performed By: #### 2 [id number] #### [facility] [address] [place] [address] Chloride [Moles/Vol] 104 mmol/L Normal 101-111 [facility] Comment on above: Performed By: #### 2 [id number] #### [facility] [address] [place] [address] CO2 [Moles/Vol] 24 mmol/L Normal 21-31 [facility] Comment on above: Performed By: #### 2 [id number] #### [facility] [address] [place] [address] Creatinine [Mass/Vol] 1.5 mg/dL High 0.5-1.3 [facility] Comment on above: Performed By: #### 2 [id number] #### [facility] [address] [place] [address] Glucose [Mass/Vol] 109 mg/dL Normal 55-199 [facility] Comment on above: Performed By: #### 2 [id number] #### [facility] [address] [place] [address] Potassium [Moles/Vol] 4.2 mmol/L Normal 3.5-5.3 [facility] Comment on above: Performed By: #### 2 [id number] #### [facility] [address] [place] [address] Sodium [Moles/Vol] 138 mmol/L Normal 135-145 [facility] Comment on above: Performed By: #### 2 [id number] #### [facility] [address] [place] [address] Urea nitrogen [Mass/Vol] 26 mg/dL High 5- [facility] Comment on above: Performed By: #### 2 [id number] #### [facility] [address] [place] [address] Urea nitrogen/Creatinine [Mass ratio] 17 No Units Normal 10-20 [facility] Comment on above: Performed By: #### 2 [id number] #### [facility] [address] [place] [address] Consent for Treatmenton 02-08 Consent for Treatment [id number]#1.0 0TIFF Normal [facility] AmnQ5pcr 03-08-2024 HbA1c (Bld) [Mass fraction] 6.5 % High <=5.9 [facility] Comment on above: Performed By: #### 7 [id number] #### [facility] [address] [place] [address] eGFRon 03-08-2024 eGFR 48 mL/min/1.73 m2 Low >=59 [facility] Comment on above: Order Comment: Order added by Discern Expert. Performed By: #### 1 [id number] #### [facility] [address] [place] [address] Ambulatory Visit Summaryon 0 03-07-2024 Ambulatory Visit [...] EDT With: Kristofer SCHUSTER, Haider Bee Where: [facility] Invalid Interpretation Code [address] [place] [address]- \.br \ Monday 9:15 AM EDT \.br\ With: AIDAN SCHUSTER, Araceli Treadwell\.br\ Where: [facility] Family Medicine Office/Clini c Noteon 03-07-2024 Family Medicine Office/Clinic Note HPI Staff Dong is a 73 year old male presenting for infection right leg referral to infectious disease and possible cultures called with info as she's not sure she'll be with her at this appt He was seen at [facility] and is having drg?? end of March, [...] not believe this is an infection. - [facility] physician will not do the procedure without [...] Ordered: Basic Metabolic Panel Blood Culture [facility] External Ambulatory Referral HgbA1c 2. Stage 3a chronic kidney disease (N18.31: Chronic kidney disease, stage 3a) - Will recheck today. - No concerns Ordered: Basic Metabolic Panel Blood Culture [facility] External Ambulatory Referral HgbA1c 3. Stasis ulcer (I83.009: Varicose veins of unspecified lower extremity with ulcer of unspecified site) - Most likely the cause of number 1. - No ulcer today Ordered: Basic Metabolic Panel Blood Culture [facility] External Ambulatory Referral HgbA1c 4. Morbid obesity with body mass index of 40.0-44.9 in adult (E66.01: Morbid (severe) obesity due to excess calories) - Diet and exercise advsied Ordered: Basic Metabolic Panel Blood Culture [facility] Body Mass Index (BMI) documented 3008F Current tobacco non-user 1036F Depression Screening Negative 3352F [facility] External Ambulatory Referral HgbA1c Influenza immunization administered [...] Ordered: Basic Metabolic Panel Blood Culture [facility] External Ambulatory Referral HgbA1c 6. BMI 40.0-44.9, [...] diabetic neuropathy Complex (more content not included)... Normal [facility] Comment on above: Result Comment: Elec tronically Signed By: Kristofer SCHUSTER, Haider Bee\.br\Date and Time Signed: 03/07/24 11:12 EDT Physician Referralon 024 Physician Referral [id number]#1. 00TIFF [facility] CNOVon 02-29-2024 CNOV Office Visit (PAINMN ) DONG WHITMORE ([id number]) 1950 M Date Time Provider Department 02/29/24 1:30 PM HERBERTH ARAUJOMN During your visit today, we recorded the following information about you: Temperature Pulse Blood pressure Weight 97.4 degrees 62/minute 138/73 122.5 kg Height 1.702 m Herberth Araujo MD, PhD 03/18/2024 7:05 PM Signed [facility] New Patient Consultation Referring Physician: SELF Chief Complaint: Right third toe pain SUBJECTIVE: Dong Whitmore is a 73 year old male with a pertinent past medical history of diabetes who presents to [facility] for the evaluation of right third toe pain. 15-year history of right third toe pain. He notes that over this time the pain has become increasingly severe has caused him significant discomfort and suffering. He has been to many specialists in the [facility]-over the course of the past 15 [...] 16th pe (more content not included)... [facility] 02-09-2024 Reminders - From: Vandana Hilton MA (EU - Recalls Aidan) To: - Recalls Aidan; Sent: 02/09/2024 13:50:30 EDT Show up: 06/09/2024 13:50:00 EDT Subject: renal us Reminder/Recall Addendum by Sharla Longoria on January 30, 2024 13:44:48 EDT From: Sharla Longoria (EU - Clinical) To: - Recalls Aidan; Sent: 01/30/2024 13:44:48 EDT Subject: FW: f/u after ESWL -Order for Renal US sent to Due Date/Time: 05/31/2024 13:44:00 EDT Caller Name: DONG WHITMORE; Caller Number: H , B [phone] Addendum by Sharla Longoria on January 30, 2024 13:43:59 EDT Called pt and advised him of below message. Pt voiced understanding. Pt scheduled for 07/17/24 w/ TERRIE. Will send to [facility] recall for TERRIE. Addendum by Araceli BERMUDEZ MD on January 29, 2024 18:12:03 EDT From: Araceli BERMUDEZ MD To: EU - Clinical; Sent: 01/29/2024 18:12:03 EDT Subject: RE: f/u after ESWL -Order for Renal US sent to Caller Name: DONG WHITMORE; Caller Number: H , B [phone] Please let the patient know that the [...] months with a kidney ultrasound repeated. Thanks [facility]PC Addendum by Erica Rossi on January 29, 2024 13:40:04 EDT From: Erica Rossi (EU - Pending Results) To: Araceli BERMUDEZ MD; Sent: 01/29/2024 13:40:04 EDT Subject: FW: f/u after ESWL -Order for Renal US sent to Caller Name: CHRISDONG DAVENPORT; Caller Number: H , B [phone] Pt s/p R ESWL 01/03, to get [...] EDT From: ASMITA Martines APRN, [place] X (EU - RUPERT/Aidan Messages & Refills) To: EU - Pending Results; Sent: 01/19/2024 12:57:58 EDT Subject: FW: f/u after ESWL -Order for Renal US sent to Due Date/Time: 01/25/2024 12:57:00 EDT Caller Name: HAIM DONG Boom; Caller Number: H , B [phone] Addendum by Nan Hodges MA on January 19, 2024 12:33:50 EDT From: Nan Hodges MA (EU - Pending Results) To: EU - RUPERT/Cook Messages & Refills; Sent: 01/19/2024 12:33:50 EDT Subject: RE: f/u after ESWL -Order for Renal US sent to Due Date/Time: 01/25/2024 12:33:00 EDT Caller Name: DONG WHITMORE; Caller Number: H , B [phone] Scheduled 01/24/24 @ [facility] From: Elena Robbins To: EU - Pending Results; Sent: 01/08/2024 09:17:33 EDT Subject: f/u after ESWL -Order for Renal US sent to Due Date/Time: 01/17/2024 09:17:00 EDT Caller Name: DONG WHITMORE; Caller Number: H , B [phone] Pt is PO R ESWL 01/03 - he is to get renal US in 2 weeks and call for results if we don't contact him 1st - [facility] CNP[facility] Telephone (PAMAVN) DONG WHITMORE ([id number]) 1950 M Date Time Provider Department 02/06/24 FRANCOISE SINGLETARY During your visit today, we recorded the following information about you: Lela Hyatt, RN 02/06/2024 10:46 AM Signed ----- Message from Francoise Singletary MD sent at 02/05/2024 3:12 PM EDT ----- Do you mind calling him and giving him the number to schedule at [facility] to discuss DRG? I'd suggest seeking an appointment with the following doctors who perform DRG implantation: Dr. Carlisle, Dr. Araujo, Dr. Dan, Dr. Moo Mcwilliams and Dr. Kamara may do DRG - I'm not sure. Thanks Lela! ----- Message ----- From: Livia Lester PA-C Sent: 02/05/2024 2:07 PM EDT To: Francoise Singletary MD No one on this side of [facility] that I know of does DRG so, we also send to [facility] I would just have Lela call the [...] I know who do DRG are at [facility]. How do we refer him there? From what I remember, Truman Melendez, Ni, and Moo do DRG - do you know of anyone else? Lela Hyatt, RN 02/06/2024 10:55 AM Signed Called and spoke [...] Encounter Status:Closed by LELA HYATT on 02/06/24 [facility] Ksenia 02-05-2024 CNOV Office Visit (DENICE ) DONG WHITMORE ([id number]) 1950 M Date Time Provider Department 02/05/24 11:30 AM FRANCOISE SINGLETARY During your visit today, we recorded the following information about you: Pulse Blood pressure Weight 80/minute 131/70 124.7 kg Francoise Singletary MD 02/05/2024 3:14 PM Signed [facility] Consultation Date: February 02, [...] The patient has seen other pain providers. [facility] Neurology OV 02/01/22 Assessment and Plan 71 [...] year old (more content not included)... Normal [facility] Renalon 01-26-2024 Renal Exam Date/Time: 01/24/2024 09:55 EDT Reason [...] Rosenbaum MD Transcribed by: GREGORIO Technologist: HW [facility] Consent for Treatmenton 01-07 Consent for Treatment [id number]#1.0 0TIFF [facility] Consultation Noteon 01-22-20 Consultation Note [id number]#1.0 0TIFF [facility] Consultation Note [id number]#1.0 0TIFF [facility] IntraOperative Documentson 0 01-08-2024 IntraOperative Documents [id number]#1.0 0TIFF [facility] Postoperative Documentson Postoperative Documents [id number]#1. 00TIFF [facility] Consent for Anesthesiaon Consent for Anesthesia [id number]#1. 00TIFF [facility] Discharge Instructionson Discharge Instructions [id number]#1. 00TIFF Normal [facility] IntraOperative Documentson 0 01-05-2024 IntraOperative Documents [id number]. 00TIFF Normal [facility] IntraOperative Documents [id number]#1. 00TIFF Normal [facility] Main [place] Intraoperative Recor don 01-05-2024 Main [place] Intraoperative Record IntraOp Document Type FT Summary Primary Physician: Araceli BERMUDEZ MD Finalized Date/Time: 01/05/24 12:41:56 Pt. Name: DONG WHITMORE/Sex: 1950 Male Med Rec #: [id number] Physician: Araceli BERMUDEZ MD Financial #: [id number] Pt. Type: A Room/Bed: [place] [address] Admit/Disch: 01/04/24 06:41:12 - 01/04/24 12:00:26 Institution: [...] Loja Role Performed Anesthesiologist Surgeon - Primary Facilities Maintenance Manager - Primary Master Welder Time In 01/04/24 09:07:00 01/04/24 09:07:00 01/04/24 [...] 01/04/24 09:55:45 General Comments: FINN BRAUN - [facility] STUDENT WORKING WITH DR. BERMUDEZ. SCRUBBED IN [...] X-ray Applicable) PreOp Antibiotic Yes Time Out Augusitn [place] Given Participants AIDAN Chávez MD, Anuradha Briceño Terry T, Rukhsana Connors Time Out Complete 01/04/24 09:19:00 Outcomes Met? [...] and tissue Entry 1 Skin Integrity Intact, [place], Warm, and Skin (more content not included)... Normal [facility] Preoperative Documentson Preoperative Documents [id number]#1. 00TIFF Normal [facility] Progress Note-Physicianon Progress Note-Physician Patient: DONG WHITMORE Age: 73 years Sex: Male : 1950 Associated Diagnoses: None Author: Cooper Mancia Jr, DO Postoperative Information Postoperative disposition: Postoperative disposition: To PACU. Optimetrix number: Optimetrix number [id number]. Anesthetic utilized: General. Health Status Allergies: Allergic [...] meets criteria ( To home ). Normal [facility] Comment on above: Result Comment: Elec tronically Signed By: Cooper Mancia Jr, DO\.br\Date and Time Signed: 01/05/24 10:01 EDT Progress Note-Physician Patient: DONG WHITMORE Age: 73 years Sex: Male : 1950 Associated Diagnoses: None Author: Cooper Mancia Jr, DO Preoperative Information Anesthesia Preop Info: Time patient [...] Problems Vitamin D deficiency / SNOMED CT 70915444 / Confirmed Urgency of urination / SNOMED CT 489881444 / Confirmed Type 2 diabetes mellitus with hyperglycemia, without long-term current use of insulin / ICD-10-CM E11.65 / Confirmed Type 2 diabetes mellitus with peripheral vascular disease / SNOMED CT 895620945 / Confirmed linked DM with PVD per OP CDI policy. Type 2 diabetes mellitus with stage 3a chronic kidney disease and hypertension / SNOMED CT 434877203 / Confirmed linked DM with CKD and HTN per OP CDI policy. 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 Shoulder pain / SNOMED CT 47446686 / Confirmed Renal mass / SNOMED CT 890133226 / Confirmed Psoriasis / SNOMED CT 37267401 / Confirmed PVD (peripheral vascular disease) / SNOMED CT 9033635926 / Confirmed OA (osteoarthritis) / SNOMED CT 2553821155 / Confirmed ULISES (obstructive sleep apnea) / SNOMED CT 217135857 / Confirmed SANTANA (nonalcoholic steatohepatitis) / SNOMED CT 8029904391 / Confirmed Lumbar spondylosis / SNOMED CT 851837254 / Confirmed noted in 10/16/2023 Pain Management Consult Note page 3. added per OP CDI policy. Impotence / SNOMED CT 9484303105 / Confirmed History of kidney stones / SNOMED CT 6772927160 / Confirmed Hiatal hernia / SNOMED CT 623295214 / Confirmed GERD (gastroesophageal reflux disease) / SNOMED CT 645234376 / Confirmed Nerves / SNOMED CT 6242360070 / Confirmed Primary hypertension / SNOMED CT 46884637 / Confirmed Anticoagulated / SNOMED CT 379828632 / Confirmed Complex renal cyst / SNOMED CT 5609495383 / Confirmed Chronic painful diabetic neuropathy / SNOMED CT 2649849870 / Confirmed noted in 10/16/2023 Pain Management Consult Note page 3. added per OP CDI policy. Pain, foot, right, chronic / SNOMED CT 5788619574 / Confirmed noted in 10/16/2023 Pain Management Consult Note page 3. added per OP CDI policy. Chronic bilateral low back pain without sciatica / SNOMED CT 655408814 / Confirmed Stage 3a chronic kidney disease / SNOMED CT 5978779507 / Confirmed Excessive dietary caloric intake / SNOMED CT 244003058 / Confirmed Morbid obesity with body mass index of 40.0-44.9 in adult / SNOMED CT 2240261472 / Confirmed BPH with obstruction/lower urinary tract symptoms / SNOMED CT 0001598560 / Confirmed Anxiety / SNOMED CT 23694044 / Confirmed Allergic rhinitis / SNOMED CT 106648268 / Confirmed Acquired absence of right great toe / SNOMED CT 605118566 / Confirmed added per 07/24/2023 query response. Resolved: Neuropathy / SNOMED CT 5141055584 idiopathic chronic Resolved: Hyperlipidemia / SNOMED CT 12979561 Resolved: Depressed mood / SNOMED CT 892110574 Resolved: Amputation of toe of right foot / ICD-10-CM S98.131A Resolved: BPH - benign prostatic hyperplasia / SNOMED CT 2168041780 Resolved: Anxiety disorder / SNOMED CT 174869325 Canceled: Microscopic hematuria / SNOMED CT 579639392 Canceled: Kidney stone / IMO 67592 Canceled: Hypertension / SNOMED CT 8634896375 Canceled: HLD (hyperlipidemia) / SNOMED CT 33584774 Canceled: Glycosuria / SNOMED CT 36962448 Canceled: Diabetes / SNOMED CT 147748360 Histories Procedure history: TOE AMPUTATION on 11/16/2018 at 68 Years. Cysto, Lt retrogrades, Lt stent, Ureteral cath, Lt ESWL ([id number]) on 06/07/2018 at 67 Years. Comments: 06/21/2019 14:34 EDT - Marilynn Zhang MA Cysto, Lt retr (more content not included)... Normal [facility] Comment on above: Result Comment: Elec tronically Signed By: Cooper Mancia Jr, DO\.br\Date and Time Signed: 01/05/24 09:04 EDT XR Abdomen 1 Viewon 01-05-20 XR Abdomen 1 View Exam Date/Time: 01/04/2024 [...] mGy = na DAP = na Normal [facility] Capillary Glucose POCon 12-08 Glucose [Mass/Vol] 133 mg/dL High 55-99 [facility] Comment on above: Performed By: #### 2 [id number] #### [facility] Laboratory [address] [place] [address] Consent for Procedure/Surger yon 01-04-2024 Consent for Procedure/Surgery [id number]#1. 00TIFF Normal [facility] Consent for Treatmenton 12-08 Consent for Treatment [id number]#1.0 0TIFF Normal [facility] Discharge Instructionson Discharge Instructions DONG WHITMORE :1950 [...] Araceli BERMUDEZ MD Where: [facility] Invalid Interpretation Code [address] [place] [address]- \.br \ Monday 9:30 AM EDT \.br\ With:\.br\ Where: [facility] Family Medicine [facility] Comment on above: Result Comment: Elec tronically Signed By: Ector WALKER, Rakel Nur\.br\Date and Time Signed: 01/04/24 10:37 EDT H&P Updateon 01-04-2024 H&P Update [id number] 04 [id number]#1. 00TIFF Normal [facility] Inpatient Patient Summaryon 01-04-2024 Inpatient Patient Summary [address] [address] [facility] Clinical Discharge Instructions PERSON INFORMATION Name: DONG WHITMORE [facility]#:[id number] PHYSICIANS Admitting Physician: Araceli BERMUDEZ MD Attending Physician: Araceli BERMUDEZ MD PCP: Haider Hickman MD Discharge Diagnosis: Comment: PATIENT EDUCATION INFORMATION Instructions: Lithotripsy, Care After Medication Leaflets: Follow up: With: Address: When: Araceli BERMUDEZ [address] [place] [address], [address] [address] Business (1) Comments: Please call my office [...] for follow-up With: Address: When: [place] [address] [facility] [address] Business (1) Type Location Start Finish State [facility] Office Visit [facility] 03/13/2024 9:45 AM 03/13/2024 10:00 AM Confirmed FM Open [facility] [place] 03/26/2024 2:15 PM 03/26/2024 2:30 PM Confirmed FM Medicare Wellness Subsequent [facility] FM Ruth Ann 05/13/2024 9:30 AM 05/13/2024 10:30 AM Confirmed [facility] Office Visit [facility] EU [place] 11/06/2024 10:30 AM 11/06/2024 10:45 AM Confirmed MEDICATION LIST New Medications [id number], [address], [place] [id number], [phone] acetaminophen-hydrocod one (acetaminophen-hydroco done 325 mg-5 mg [...] Tablets By Mouth every day. Comment: Macario [facility] Main OR PACU I Recordon 12-08 Main OR PACU I Record PACU Phase I Document Type FT Summary Primary Physician: Araceli BERMUDEZ MD Finalized Date/Time: 01/04/24 10:17:21 Pt. Name: DONG WHITMORE Boom Ann/Sex: 1950 Male Med Rec #: [id number] Physician: Araceli BERMUDEZ MD Financial #: [id number] Pt. Type: A Room/Bed: [place] [address] Admit/Disch: 01/04/24 06:41:12 - Institution: Case Times [...] By: Sangita Ross RN 01/04/24 10:17 Normal [facility] Main OR PACU II Recordon Main OR PACU II Record PACU Phase II Document Type FT Summary Primary Physician: Araceli BERMUDEZ MD Finalized Date/Time: 01/04/24 12:01:26 Pt. Name: DONG WHITMORE/Sex: 1950 Male Med Rec #: [id number] Physician: Araceli BERMUDEZ MD Financial #: [id number] Pt. Type: A Room/Bed: [place] [address] Admit/Disch: 01/04/24 06:41:12 - 01/04/24 12:00:26 Institution: [...] By: Rakel Barney RN 01/04/24 12:01 Normal [facility] Main OR Preoperative Recordo n 01-04-2024 Main OR Preoperative Record PreOp Document Type FT Summary Primary Physician: Araceli BERMUDEZ MD Finalized Date/Time: 01/04/24 09:57:43 Pt. Name: CHRISETHELDONG/Sex: 1950 Male Med Rec #: [id number] Physician: Araceli BERMUDEZ MD Financial #: [id number] Pt. Type: A Room/Bed: [place] [address] Admit/Disch: 01/04/24 06:41:12 - Institution: Case Times [...] Signed By: Sim Ling 01/04/24 09:57 Normal [facility] Monitor Recordon 01-04-2024 Monitor Record [id number] 30 [id number]#1. 00TIFF Normal [facility] Operative Reporton Operative Report Patient: DONG WHITMORE [...] placed per urethra and a well-lubricated 22 Singaporean is urethroscope with 30 degree lens then [...] pyelogram was then performed utilizing a 6 Singaporean open-ended ureteral catheter. The ureter is normal [...] keep the stone in view. Utilizing the Siemens Lithostar lithotripter, 1500 shocks were given up to 3.2 power level per protocol. Difficult to tell whether there was good stone fragmentation or not secondary to the patient's body habitus and the fact that this may be a uric acid calculus. He tolerates it well. Upon completion of the procedure the ureteral catheter was removed and he was transferred to the rstony point and then back to PACU in satisfactory condition, stable vital signs. Plan to be for discharge home with plans for a follow-up kidney ultrasound within the next couple weeks. Prescription sent to pharmacy for doxycycline for antibiotic prophylaxis as well as 7 pills of [place] 5/325. She was in agreement with the plan. . Estimated Blood Loss: 0 ml. Complications: None. Anesthesia type: General. Normal [facility] Comment on above: Result Comment: Elec tronically Signed By: Araceli BERMUDEZ MD\.br\Date and Time Signed: 01/04/24 10:09 EDT Outpatient Surgery Discharge Instructionon 01-04-2024 Outpatient Surgery Discharge Instruction [place] [id number] Patient Discharge Instructions PERSON INFORMATION Name: DONG [...] THE NEAREST EMERGENCY ROOM OR CALL 911 Luis, DONG WHITMORE, have received the attached patient education materials/instructions and have verbalized understanding: May we do a follow up call? Yes No I was present when discharge instructions were given Patient Signature Date Clinican/Nurse Signature ___ Date Follow up: With: Address: When: Araceli BERMUDEZ [facility] [place], [address], [address] [address] Business (1) Comments: Please call my office [...] for follow-up With: Address: When: [place] [address] [facility] [address] Business (1) Type Location Start Finish State [facility] Office Visit [facility] PREM [place] 03/13/2024 9:45 AM 03/13/2024 10:00 AM Confirmed FM Open [facility] [place] 03/26/2024 2:15 PM 03/26/2024 2:30 PM Confirmed FM Medicare Wellness Subsequent [facility] Ruth Ann 05/13/2024 9:30 AM 05/13/2024 10:30 AM Confirmed [facility] Office Visit [facility] [place] 11/06/2024 10:30 AM 11/06/2024 10:45 AM Confirmed Pharmacy Information: You may receive a survey from [facility]bie [facility] asking you to rate your care experience. Your feedback is important and will help us understand what we do well and how we can improve the quality of care we provide to you, your loved ones and our community. It?s an honor to serve you. Thank you for choosing [facility] HERE ARE THE MEDICATION CHANGES THAT OCCURRED DURING YOUR HOSPITAL STAY New Medications [id number], [address], [place] [id number], [phone] acetaminophen-hydrocod one (acetaminophen-hydroco done 325 mg-5 mg [...] care p (more content not included)... Normal [facility] PT - Progress Noteson 2023 PT - Progress Notes [id number] 30 [id number]#1.0 0TIFF [facility] Patient Education - Texton 0 01-04-2024 Patient [...] these instructions at home: Medicines ? Take xjhx-mzp-krqxyif and prescription medicines only as told by [...] forming. ? (more content not included)... Normal [facility] Physician Referralon 024 Physician Referral [id number] 01 [id number]#1. 00TIFF Normal [facility] Physician Referral [id number]. 00TIFF Normal [facility] BMPon 12-29-2023 Anion gap [Moles/Vol] 13 mmol/L Normal 6-16 [facility] Comment on above: Performed By: #### 2 894841, 9379219, 52083607, 46771481 #### [facility] Laboratory [address] [place] [address] Calcium [Mass/Vol] 9.1 mg/dL Normal 8.9-11.1 [facility] Comment on above: Performed By: #### 2 763361, 2076617, 90478268, [id number] #### [facility] Laboratory [address] [place] [address] Chloride [Moles/Vol] 106 mmol/L Normal 101-111 [facility] Comment on above: Performed By: #### 2 447659, 5012292, 61254176, 67579259 #### [facility] [address] [place] [address] CO2 [Moles/Vol] 25 mmol/L Normal 21-31 [facility] Comment on above: Performed By: #### 2 557159, 4437185, 89078743, 76995738 #### [facility] [address] [place] [address] Creatinine [Mass/Vol] 1.2 mg/dL Normal 0.5-1.3 [facility] Comment on above: Performed By: #### 2 472971, 1904715, 35654206, 82392077 #### [facility] [address] [place] [address] Glucose [Mass/Vol] 145 mg/dL Normal 55-199 [facility] Comment on above: Performed By: #### 2 487992, 8873130, 94182066, 02777563 #### [facility] [address] [place] [address] Potassium [Moles/Vol] 3.8 mmol/L Normal 3.5-5.3 [facility] Comment on above: Performed By: #### 2 956679, 0817621, 81043891, 96164379 #### [facility] Laboratory [address] [place] [address] Sodium [Moles/Vol] 140 mmol/L Normal 135-145 [facility] Comment on above: Performed By: #### 2 157653, 6060718, 30839257, 42716720 #### [facility] [address] [place] [address] Urea nitrogen [Mass/Vol] 25 mg/dL High 5-21 [facility] Comment on above: Performed By: #### 2 431364, 8033706, 20473758, 05068927 #### [facility] Laboratory [address] [place] [address] Urea nitrogen/Creatinine [Mass ratio] 21 No Units High 10-20 [facility] Comment on above: Performed By: #### 2 937247, 1471498, 41546470, 99347815 #### [facility] [address] [place] [address] CBC w/ Auto Diffon 4 Basophils/100 WBC (Bld) 0.5 % Normal 0.0-2.0 [facility] Comment on above: Performed By: #### 2 319888, 3312367, 58527109, 68099160 #### [facility] [address] [place] [address] Basophils/Leukocytes Auto (Bld) [Pure # fraction] 0.0 E9/L Normal 0.0-0.2 [facility] Comment on above: Performed By: #### 2 061955, 0669699, 29256850, 68058627 #### [facility] [address] [place] [address] Eosinophils (Bld) [#/Vol] 0.3 E9/L Normal 0.0-0.5 [facility] Comment on above: Performed By: #### 2 369312, 4252527, 88765664, 61250233 #### [facility] [address] [place] [address] Eosinophils/100 WBC (Bld) 5.7 % Normal 0.0-8.0 [facility] Comment on above: Performed By: #### 2 471760, 0206460, 23372868, 67386045 #### [facility] [address] [place] [address] Erythrocyte distribution width (RBC) [Ratio] 14.6 % High 10.9-14.2 [facility] Comment on above: Performed By: #### 2 561904, 8907618, 63225010, 45124038 #### [facility] [address] [place] [address] Hematocrit (Bld) [Volume fraction] 38.3 % Normal 37.7-49.0 [facility] Comment on above: Performed By: #### 2 006487, 9960353, 01114572, 22005939 #### [facility] Laboratory [address] [place] [address] Hemoglobin (Bld) [Mass/Vol] 12.8 g/dL Low 13.5-17.5 [facility] Comment on above: Performed By: #### 2 636991, 4616107, 41662340, 38360146 #### [facility] [address] [place] [address] Lymphocytes (Bld) [#/Vol] 0.9 E9/L Low 1.0-4.0 [facility] Comment on above: Performed By: #### 2 353440, 7840252, 94870783, 11659033 #### [facility] [address] [place] [address] Lymphocytes/100 WBC (Bld) 17.1 % Normal 14.0-50.0 [facility] Comment on above: Performed By: #### 2 644396, 2371302, 42517511, 90846618 #### [facility] [address] [place] [address] MCH (RBC) [Entitic mass] 28.1 pg Normal 27.0-34.0 [facility] Comment on above: Performed By: #### 2 278497, 3581367, 97384701, 96294451 #### [facility] [address] [place] [address] MCHC (RBC) [Mass/Vol] 33.4 g/dL Normal 31.4-36.0 [facility] Comment on above: Performed By: #### 2 343798, 3138730, 95207003, 05426671 #### [facility] Laboratory [address] [place] [address] MCV (RBC) [Entitic vol] 84.1 fL Normal 80.0-100.0 [facility] Comment on above: Performed By: #### 2 253306, 8305433, 22894616, 57057621 #### [facility] [address] [place] [address] Monocytes (Bld) [#/Vol] 0.4 E9/L Normal 0.2-1.0 [facility] Comment on above: Performed By: #### 2 981087, 9587467, 09231923, 18745819 #### [facility] [address] [place] [address] Neutrophils (Bld) [#/Vol] 3.9 E9/L Normal 2.0-7.5 [facility] Comment on above: Performed By: #### 2 485960, 0225023, 12176404, 25042607 #### [facility] [address] [place] [address] Neutrophils/100 WBC (Bld) 69.6 % Normal 36.0-75.0 [facility] Comment on above: Performed By: #### 2 724819, 4046134, 53483553, 90528096 #### [facility] [address] [place] [address] Platelet 178.0 E9/L Normal 150.0-500.0 [facility] Comment on above: Performed By: #### 2 302991, 6504101, 20217202, 52534789 #### [facility] [address] [place] [address] Platelet mean volume (Bld) [Entitic vol] 8.4 fL Normal 6.4-10.8 [facility] Comment on above: Performed By: #### 2 412203, 5312217, 78092852, 44543734 #### [facility] [address] [place] [address] RBC (Bld) [#/Vol] 4.6 E12/L Normal 4.3-5.9 [facility] Comment on above: Performed By: #### 2 234968, 3553314, 84578979, 44778285 #### [facility] [address] [place] [address] WBC corrected for nucl RBC Auto (Bld) [#/Vol] 5.5 E9/L Normal 4.0-11.0 [facility] Comment on above: Performed By: #### 2 506637, 9390623, 66897959, 55676076 #### [facility] [address] [place] [address] Consent for Treatmenton 12-08 Consent for Treatment [id number] 0TIFF Normal [facility] PT & PTTon 12-29-2023 aPTT Coag (PPP) [Time] 35.7 second(s) Normal 25.1-36.5 [facility] Comment on above: Result Comment: [...] the same coagulation reagent and instrumentation as [facility]. Currently there are no coagulation studies available worldwide for children to 14 days, and no normal ranges. Heparin therapeutic range (represented by Anti-Factor Xa activity of 0.2 - 0.4 U/mL) corresponds to PTT of 56.6 - 109.0 sec. Performed By: #### 2 136735, 0723905, 91558974, 19682737 #### [facility] [address] [place] [address] INR Coag (PPP) [Relative time] 1.23 {INR} Invalid Interpretation Code [facility] Comment on above: Result Comment: INR results are specifically intended to assess patients stabilized on long-term Anticoagulation therapy suggested INR?s ?Less Intensive Anticoagulation? 2.0 ? 3.0 Conventional Range 3.0 ? 4.5 Performed By: #### 2 840601, 8646248, 78473537, 87924289 #### [facility] [address] [place] [address] PT Coag (PPP) [Time] 13.8 second(s) High 9.4-12.5 [facility] Comment on above: Result Comment: [...] the same coagulation reagent and instrumentation as [facility]. Currently there are no coagulation studies available worldwide for children to 14 days, and no normal ranges. Performed By: #### 2 239533, 9828545, 63544902, 94846158 #### [facility] [address] [place] [address] UA with Cult Rflxon 12-29-19 24 Color (U) Light-Yellow Normal Yellow [facility] Comment on above: Result Comment: Micr oscopic readings are only performed on those samples that meet specific criteria set forth by [facility]. Performed By: #### 4 [id number] ####[facility] [address] [place] [address] Glucose (U) [Mass/Vol] Negative Normal Negative [facility] Comment on above: Performed By: #### 4 [id number] ####[facility] [address] [address] Ketones Ql (U) Negative Normal Negative [facility] Comment on above: Performed By: #### 4 [id number] ####[facility] [address] [facility] [place] [address] UA Blood Negative Normal Negative [facility] Comment on above: Performed By: #### 4 [id number] ####[facility] [address] [place] [address] UA Clarity Clear Normal Clear [facility] Comment on above: Performed By: #### 4 513793447 ####[facility] [address] [place] [address] UA Leuk Est Negative Normal Negative [facility] Comment on above: Performed By: #### 4 357188838 ####[facility] [address] [place] [address] UA Nitrite Negative Normal Negative [facility] Comment on above: Performed By: #### 4 682392917 ####[facility] [address] [place] [address] UA pH 6.5 Invalid Interpretation Code 5.0-9.0 [facility] Comment on above: Performed By: #### 4 [id number] ####[facility] [address] [place] [address] UA Protein Trace Abnormal Negative [facility] Comment on above: Performed By: #### 4 798676198 ####[facility] [address] [place] [address] UA Spec Grav 1.021 Invalid Interpretation Code 1.005-1.030 [facility] Comment on above: Performed By: #### 4 [id number] ####[facility] [address] [facility] [place] [address] UA Urobilinogen Negative Normal Negative [facility] Comment on above: Performed By: #### 4 747397828 ####[facility] [address] [place] [address] Urobilinogen (U) [Mass/Vol] Negative Normal Negative [facility] Comment on above: Performed By: #### 4 [id number] ####[facility] [address] [place] [address] UA Spec Desc Clean Catch Normal [facility] Comment on above: Performed By: #### 4 [id number] ####[facility] [address] [place] [address] XR Chest 2 Viewson XR Chest 2 Views Exam Date/Time: 12/29/2023 09:35 EDT Reason for Exam: P.A.T. Report [facility] [phone] IMPRESSION: No acute infiltrates or effusions, no [...] mGy = na DAP = na Normal [facility] eGFRon 12-29-2023 eGFR 63 mL/min/1.73 m2 Normal >=59 [facility] Comment on above: Order Comment: Order added by Discern Expert. Performed By: #### 2 635803, 1377522, 16094353, 24859195 #### [facility] Laboratory [address] [place] [address] Family Medicine Office/Clini c Noteon 12-28-2023 Family [...] pyelography (12/05/2016), ysto, (more content not included)... [facility] Comment on above: Result Comment: Elec tronically Signed By: Haider Hickman MD\.br\Date and Time Signed: 12/28/23 09:51 EDT Physician Orderon 12-28-2023 Physician Order [id number] 30 [id number]#1.0 0TIFF [facility] Ambulatory Visit Summaryon 0 12-26-2023 Ambulatory Visit Summary CHRISETHEL DONG Boom :1950 Visit Date:12/26/2023 Ambulatory Visit Instructions Your [...] SCHUSTER, Araceli Treadwell Where: [facility] Invalid Interpretation Code [address] [place] [address]- \.br \ Monday 9:30 AM EDT \.br\ With:\.br\ Where: [facility] Family Medicine [facility] CMPon 12-26-2023 Albumin [Mass/Vol] 4.2 g/dL Normal 3.3-5.0 [facility] Comment on above: Performed By: #### 2 481868, 9494077, 31007401, 5144402 ####[address] [place] [address] Albumin/Globulin (S) [Mass conc ratio] 1.6 Normal 1.1-2.2 [facility] Comment on above: Performed By: #### 2 491792, 9637647, 46782202, 5422855 ####[facility] [address] [facility] [place] [address] ALP [Catalytic activity/Vol] 67 Int._Unit/L Normal 21-98 [facility] Comment on above: Performed By: #### 2 317971, 2084531, 95141781, 3282162 ####[facility] [address] [place] [address] ALT No additional P-5'-P [Catalytic activity/Vol] 20 Int._Unit/L Normal 6-46 [facility] Comment on above: Performed By: #### 2 123316, 5600162, 23722349, 2164016 ####[facility] [address] [place] [address] Anion gap [Moles/Vol] 10 mmol/L Normal 6-16 [facility] Comment on above: Performed By: #### 2 503694, 6820421, 75727934, 8109116 ####[facility] [address] [place] [address] AST [Catalytic activity/Vol] 21 Int._Unit/L Normal 5-43 [facility] Comment on above: Performed By: #### 2 181701, 6403860, 69007648, 9300257 ####[facility] [address] [place] [address] Bilirubin [Mass/Vol] 0.6 mg/dL Normal 0.0-1.1 [facility] Comment on above: Performed By: #### 2 658600, 8872923, 06070140, 2415131 ####[facility] [address] [place] [address] Calcium [Mass/Vol] 9.3 mg/dL Normal 8.9-11.1 [facility] Comment on above: Performed By: #### 2 164493, 6803586, 29557515, 8569559 ####[facility] [address] [place] [address] Chloride [Moles/Vol] 105 mmol/L Normal 101-111 [facility] Comment on above: Performed By: #### 2 316114, 3072282, 41413488, 8424117 ####[facility] [address] [place] [address] CO2 [Moles/Vol] 27 mmol/L Normal 21-31 [facility] Comment on above: Performed By: #### 2 705497, 6780332, 26761079, 4546245 ####[facility] [address] [place] [address] Creatinine [Mass/Vol] 1.3 mg/dL Normal 0.5-1.3 [facility] Comment on above: Performed By: #### 2 206434, 2072697, 97111245, 8464301 ####[facility] [address] [place] [address] Globulin (S) [Mass/Vol] 2.6 g/dL Normal 1.4-4.0 [facility] Comment on above: Performed By: #### 2 512102, 4957097, 62905397, 1807126 ####[facility] [address] [place] [address] Glucose [Mass/Vol] 135 mg/dL Normal 55-199 [facility] Comment on above: Performed By: #### 2 688359, 3315352, 52924855, 5439543 ####[facility] [address] [place] [address] Potassium [Moles/Vol] 4.1 mmol/L Normal 3.5-5.3 [facility] Comment on above: Performed By: #### 2 409579, 3562638, 69698779, 3361553 ####[facility] [address] [place] [address] Protein [Mass/Vol] 6.8 g/dL Normal 6.0-7.8 [facility] Comment on above: Performed By: #### 2 167055, 4927909, 35049294, 5239226 ####[facility] [address] [place] [address] Sodium [Moles/Vol] 138 mmol/L Normal 135-145 [facility] Comment on above: Performed By: #### 2 052464, 7541174, 47207933, 8137214 ####[facility] [address] [place] [address] Urea nitrogen [Mass/Vol] 27 mg/dL High 5-21 [facility] Comment on above: Performed By: #### 2 803282, 0520838, 75475650, 1250726 ####[facility] [address] [facility] [place] [address] Urea nitrogen/Creatinine [Mass ratio] 21 No Units High 10-20 [facility] Comment on above: Performed By: #### 2 334234, 3754344, 29394270, 8482307 ####[facility] [address] [place] [address] Lipid Panelon 12-26-2023 Cholesterol [Mass/Vol] 118 mg/dL Low 120-200 [facility] Comment on above: Performed By: #### 2 443819, 3643332, 82213966, 8722786 ####[facility] [address] [facility] [place] [address] Cholesterol in HDL [Mass/Vol] 33 mg/dL Invalid Interpretation Code [facility] Comment on above: Result Comment: '>= 60 LOW RISK' '<= 40 HIGH RISK' Performed By: #### 2 297389, 8676516, 50159856, 5848611 ####[facility] [address] [facility] [place] [address] Cholesterol in LDL [Mass/Vol] 57 mg/dL Normal <=129 [facility] Comment on above: Performed By: #### 2 783049, 0296611, 83459008, 9510931 ####[facility] [address] [facility] [place] [address] Cholesterol in VLDL [Mass/Vol] 45 mg/dL High 7-40 [facility] Comment on above: Performed By: #### 2 861586, 4378750, 50409114, 0007597 ####[facility] [address] [facility] [place] [address] Triglyceride [Mass/Vol] 225 mg/dL High <=149 [facility] Comment on above: Performed By: #### 2 202042, 9231646, 63678305, 7862440 ####[facility] [address] [place] [address] U Microalbon 12-26-2023 Albumin DL <= 20 mg/L (U) [Mass/Vol] 5.8 mg/dL High 0.0-1.9 [facility] Comment on above: Performed By: #### 1 616809475, 84157655 ####[facility] [address] [place] [address] U Protein/Creat Ratioon 12-07 Protein/Creatinine (U) [Ratio] 20.90 mg/gm Cr Normal .00-200.00 [facility] Comment on above: Performed By: #### 1 713874535, 06691594 ####[facility] [address] [place] [address] U Creatinine 99.4 mg/dL Invalid Interpretation Code [facility] Comment on above: Performed By: #### 1 201865110, 29021032 ####[facility] [address] [facility] [place] [address] Ur Total Protein 20.8 mg/dL Invalid Interpretation Code [facility] Comment on above: Performed By: #### 1 441643399, 51720768 ####[facility] [address] [facility] [place] [address] Vit B12on 12-26-2023 Cobalamin (Vitamin B12) [Mass/Vol] 348 pg/mL Normal 50-1500 [facility] Comment on above: Performed By: #### 2 787439, 5916804, 34574478, 5620798 ####[facility] [address] [facility] [place] [address] eGFRon 12-26-2023 eGFR 57 mL/min/1.73 m2 Low >=59 [facility] Comment on above: Order Comment: Order added by Discern Expert. Performed By: #### 2 884349, 7521472, 60159588, 0675706 ####[facility] [address] [place] [address] Pre-Visit Planningon 024 Pre-Visit Planning - From: Ceci Yu To: Kristofer SCHUSTER, Haider Bee; Sent: 12/20/2023 09:56:36 EDT Subject: Pre-Visit Planning Due Date/Time: 12/20/2023 09:56:00 EDT Caller Name: DONG WHITMORE; Caller Number: H , B [phone] Hi Dr. Hickman. During a pre-visit planning [...] feel free to contact me at extension [phone]. Thank you! 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 Normal [address] [place] [address] Consultation Noteon 12-08-19 Consultation Note [id number] 20 [id number]#1.0 0TIFF Normal [facility] RAD - MISCon 11-14-2023 RAD - MISC [id number] 20 [id number]#1.0 0TIFF Normal [facility] RAD - Ultrasound Reporton RAD - Ultrasound Report [id number]#1.0 0TIFF Normal [facility] RAD - Ultrasound Report [id number]#1.0 0TIFF Normal [facility] RAD - MISCon 10-30-2023 RAD - MISC [id number] 06 [id number]#1.00 TIFF Normal [facility] RAD - MRI Reporton RAD - MRI Report [id number] 06 [id number]#1.00 TIFF Normal [facility] Screenson 10-20-2023 Screens [id number] 05 [id number]#1. 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 Invalid Interpretation Code [address] [place] [address]- \.br \ Monday 10:30 AM EST \.br\ With: Araceli BERMUDEZ MD\.br\ Where: [facility] Patient Educationon 10-18-19 Patient Education Nephrology Dietary [...] ? 8 oz (237 mL) of milk, ndqcjoe-bqrxlysiyzqs-p airy milk, and calcium-fortifiedfruit juice. Calcium-fortified means [...] Spinach (cooked), rhubarb, beets, sweet potatoes, and Bolivian chard. ? Peanuts. ? Potato chips, ukrainian fries, and baked potatoes with skin on. ? Nuts and nut products. ? Chocolate. ? If you regularly take a diuretic medicine, make sure to eat at least 1 or 2 servings of fruits or vegetables that are high in potassium each day. These include: ? Avocado. ? Banana. ? Ogle, prune, carrot, or tomato juice. ? Baked [...] fish oil, or vitamin B6. ? Take jxem-erh-lodykod and prescription medicines only as told by your health care provider. These include supplements. What foods sh (more content not included)... Normal [facility] Reminderson 10-18-2023 Reminders - From: Roya Álvarez To: PREM Bermudez; Sent: 10/18/2023 15:39:39 EST Show up: 08/18/2024 15:39:00 EST Subject: Renal US Due Date/Time: 09/17/2024 15:39:00 EST Pt needs scheduled for TERRIE prior to 1 year appointment. Being done at [facility]. order placed. Macario Byrd [facility] Urology Office/Clinic Noteon 10-18-2023 Urology Office/Clinic Note [...] with voice recognition artificial intelligence software, specifically [employer] and or [employer]. Substitutions may have occurred due to the [...] With When Contact Information AIDAN SCHUSTER, Araceli P, URL [address] [place], [place] [id number]- Additional Instructions: 1 year w/ renal US Patient Education Dietary Guidelines to Help Prevent Kidney Stones I, Roya Álvarez, personally scribed for Dr. Bermudez on 10/18/2023 15:40:43. . Documentation recorded by the scribeRoya, accurately reflects the services(s) I performed and [...] benign pr (more content not included)... Normal [facility] Comment on above: Result Comment: [...] recent A1c level, as measured by his customer quality specialist, was 6.9%. Review of Systems PHQ Score [...] with voice recognition artificial intelligence software, specifically [employer], [employer] and or [employer]. Substitutions may have occurred due to the inherent limitations of voice recognition and artificial intelligence software. ATTESTATION: Documentation services were performed after patient or guardian consented to allow [employer] to record this visit. HEMANTH tool specialist and provider reviewed before signing. HEMANTH: [...] under fluo (more content not included)... Normal [facility] Comment on above: Result Comment: [...] Araceli BERMUDEZ MD Where: [facility] Invalid Interpretation Code [address] [place] [address]- \.br \ Monday 9:30 AM EDT \.br\ With:\.br\ Where: [facility] Family [facility] [place] [facility] Consultation Noteon 09-18-20 23 Consultation Note [id number] 20 [id number]#1.0 0TIFF Normal [facility] A1C with Estimated Average G luon 09-11-2023 HbA1c (Bld) [Mass fraction] 6.900 % High 4.3-5.6 % [employer] [facility] [employer] How [employer] Other HbA1c (Bld) [Mass fraction] 151 mg/dL [facility] [employer] How To Other Glucose [Mass/Vol] 151 mg/dL Normal [facility] Comment on above: Order Comment: Reaso n for Exam 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 Result Comment: Incr eased risk for diabetes: 5.7 - 6.4 diabetes: >6.4 glycemic control for adults with diabetes: <7.0 Performed By: #### A 1C [facility] eA #### [facility] [address] [place] [address] Glucose - FINGER STICKon Glucose [Mass/Vol] 138 mg/dL [facility] [employer] How To Other Glucose mean value [Mass/vol ume] in Blood Estimated from glycated hemoglobinOrdered By: Aldo Middleton on 09-11-2023 Average glucose Estimated from glycated hemoglobin (Bld) [Mass/Vol] 151 mg/dL [facility] Hemoglobin A1c percentageOrd ered By: Aldo Middleton on 09-11-2023 HbA1c (Bld) [Mass fraction] 6.9 % 4.3-5.6 [facility] Comment on above: Increased risk for d iabetes: 5.7 - 6.4diabetes: >6.4glycemic control for adults with diabetes: <7.0 Consultation Noteon 09-06-20 Consultation Note [id number]#1.00 TIFF Normal [facility] Consultation Noteon 08-28-20 Consultation Note [id number]#1.00 TIFF Normal [facility] US UNI ankle/arm indiceson 1 10-24-2022 US UNI ankle/arm indices [facility] [place] [address] Ultrasound Report Signed Patient: Dong Whitmore MR#: [id number] : 1950 Acct:[id number] Age/Sex: 73 / M ADM Date: 08/24/23 Loc: [facility] Room: Type: [facility] Attending Dr: Eligio Soni MD Ordering Provider: [...] Eligio Soni MD08/24/2023 3:31 PM Dictation Location: [place] [address] Tech: Britney Sotelo Transcribed By: [facility] 08/24/23 1531 Dictated By: Eligio Soni MD 08/24/23 1530 Signed By: 08/24/23 1531 Normal [facility] US venous duplex LE RTon US venous duplex LE RT [facility] [address] [place] [address] Ultrasound Report Signed Patient: Dong Whitmore MR#: [id number] : 1950 Acct:[id number] Age/Sex: 73 / M ADM Date: 08/24/23 [facility] Room: Type: [facility] Attending Dr: Eligio Soni MD Ordering Provider: [...] Eligio Soni MD08/24/2023 3:31 PM Dictation Location: [place] [address] Tech: Coby Gibson Transcribed By: [facility] 08/24/23 153 Dictated By: Eligio Soni MD 08/24/23 153 Signed By: 08/24/23 1531 [facility] Ambulatory Visit Summaryon 1 10-21-2022 Ambulatory [...] Monday 2:40 PM EST With: Kristofer SCHUSTER, Haider Bee Where: [facility] Invalid Interpretation Code [address] [place] [address]- \.br \ Monday 9:30 AM EDT \.br\ With:\.br\ [facility] Family Medicine Office/Clini c Noteon [...] kidney d (more content not included)... Normal [facility] Comment on above: Result Comment: [...] oz glass (more content not included)... Normal [facility] Pre-Visit Planningon 023 Pre-Visit Planning - From: Ceci Yu To: Haider Hickman MD; Sent: 08/17/2023 10:44:28 EST Subject: Pre-Visit Planning Due Date/Time: 08/17/2023 10:44:00 EST Caller Name: HAIM DONG Nur; Caller Number: H , B [phone] Sc Dr. Hickman. During a pre-visit planning chart [...] feel free to contact me at extension [phone]. Thank you! Ceci Yu LPN Invalid Interpretation Code [address] [facility] Consultation Noteon 08-10-20 Consultation Note [id number] 00 [id number]#1.0 0TIFF Normal [facility] Family Medicine Office/Clini c Noteon [...] continue to monitor along. Ordered: A1c POC 05326 Body Mass Index (BMI) documented 3008F Current [...] disease) - As above Ordered: A1c POC 69158 Body Mass Index (BMI) documented 3008F Current [...] stage 3a) - Stable Ordered: A1c POC 06194 Body Mass Index (BMI) documented 3008F Current [...] - No new issues Ordered: A1c POC 57339 Body Mass Index (BMI) documented 3008F Current [...] - BMI education given Ordered: A1c POC 15484 Body Mass Index (BMI) documented 3008F Current [...] last ye (more content not included)... Normal [facility] Comment on above: Result Comment: [...] numbers. This can be done either in [place] ([place] or metric measurements. Note that charts and online BMI calculators are available to help you find your BMI quickly and easily without having to do these calculations yourself. To calculate your BMI in [place] ([place] measurements: 1. Measure your weight in [...] for Disease Control and Prevention: www.cdc.gov ? [place] Heart Association: www.heart.org ? National Heart, Lung, and Blood Cooter: www.nhlbi.nih.gov Summary ? Body mass index (BMI) is a number that is calculated from a person's weight and height. ? BMI may help estimate how much of a person's weight is composed of fat. BMI can help identify those who may be at higher risk for certain medical problems. ? BMI can be measured using [place]raltarian measurements or metric measurements. ? BMI charts are used to identify whether you are underweight, normal weight, overweight, or obese. This information is not intended to replace advice given to you by your health care provider. Make sure you discuss any questions you have with your health care provider. Document Revised: 06/17/2020 Document Reviewed: 04/24/2020 [employer] Patient Education ? 2022 [place]. [facility] Physician Referralon 023 Physician Referral [id number]#1. 00TIFF [facility] Pre-Visit Planningon 023 Pre-Visit Planning - From: Ceci Yu To: Kristofer SCHUSTER, Haider Bee; Sent: 07/24/2023 15:20:33 EDT Subject: Pre-Visit Planning Due Date/Time: 07/24/2023 15:20:00 EDT Caller Name: DONG WHITMORE; Caller Number: H , B [phone] Sc Dr. Hickman. During a pre-visit planning chart [...] feel free to contact me at extension [phone]. Thank you! Ceci Yu LPN From: Haider Hickman MD To: Ceci Yu; Sent: 07/24/2023 16:58:10 EDT Subject: RE: Pre-Visit Planning Caller Name: DONG WHITMORE; Caller Number: H , B [phone] OK to add the first one. Thank you Normal [address] [place] [address] Consultation Noteon 07-19-20 Consultation Note [id number]#1.0 0TIFF [facility] Operative Reporton Operative Report [id number] 00 [id number]#1.0 0TIFF [facility] Consultation Noteon 07-03-20 Consultation Note [id number] 05 [id number]#1.00 CD:127 [facility] Nursing Note - Woundon 06-28 Nursing Note - Wound [id number]#2. 00CD:127 [facility] Physician Referralon 023 Physician Referral [id number] 02 [id number]#1.00 CD:127 [facility] Consent for Procedure/Surger yon 06-26-2023 Consent for Procedure/Surgery [id number]#1.0 0CD:127 [facility] Consent for Treatmenton 06-09 Consent for Treatment [id number]#1.0 0CD:127 [facility] Multi-Wound Charton 06-26-20 Multi-Wound Chart [id number] 90 [id number]#1. 00CD:127 [facility] Nursing Assessment - Woundon 06-26-2023 Nursing Assessment - Wound [id number]#1. 00CD:127 [facility] Physician Orderon 06-26-2023 Physician Order [id number]#1. 00CD:127 [facility] Progress Note - Woundon 06-09 Progress Note - Wound [id number]#1. 00CD:127 [facility] Operative Reporton 3 Operative Report [id number]#1.00 CD:127 Normal [facility] Operative Reporton 3 Operative Report [id number]#1.0 0CD:127 Normal [facility] A1C HEMOGLOBINon 02-14-2023 HbA1c (Bld) [Mass fraction] 7.6 % [employer] Other Glucose - FINGER STICKon Glucose [Mass/Vol] 215 mg/dL [employer] [facility] Cop[employer] How To Other HbA1c (Bld) [Mass fraction]o n 02-14-2023 A1C HEMOGLOBIN [facility] [employer] Other ECHOCARDIO M/2D COMPLETEon 0 12-30-2022 ECHOCARDIO M/2D COMPLETE Patient: DONG WHITMORE Exam Date: 12/30/2022 : 1950 Gender:M Ordering : MARY APARICIO [facility] Admission #: [id number] Family : Order #: [id number] CLICK HERE TO VIEW EXAM ECHOCARDIOGRAM REPORT [...] Thibodeaux M.D. on 12/30/2022 at 18:49 Normal [facility] NM STRESS/REST MULTIon 12-29 NM STRESS/REST MULTI Patient: DONG WHITMORE Exam Date: 12/29/2022 : 1950 Gender:M Ordering : MARY APARICIO [facility] Admission #: [id number] Family : Order #: [id number] CLICK HERE TO VIEW EXAM RADIOLOGY REPORT [...] US MAMI DOP LEG RT EXAMINATION: US MAIM DOP LEG RT HISTORY: Deep venous thrombosis [...] Date: 2022-12-08 16:15 Normal [facility] TSHon 11-25-2022 TSH 2.370 uIU/mL Normal 0.358-3.740 [facility] Comment on above: Performed By: #### T SH #### [facility] [address] [address] [address] Eli Jarvis BNPon 11-08-2022 Natriuretic peptide B (Bld) [Mass/Vol] 122.0 pg/mL Normal <=900.0 [facility] Comment on above: Performed By: #### C MP, BNP #### [facility] [address] [address] [address] Eli Jarvis CBC AUTO DIFFon 11-08-2022 BASO # 0.1 103/ul Normal 0.0-0.1 [facility] Comment on above: Performed By: #### C BC ####[facility] [address] [place] [address]DrSuzie Jarvis Basophils/100 WBC (Bld) 0.7 % Normal 0.2-2.0 [facility] Comment on above: Performed By: #### C BC ####[facility] [address] [place], [place] [address]DrSuzie Jarvis EO # 0.2 103/ul Normal 0.0-0.7 [facility] Comment on above: Performed By: #### C BC ####[facility] [address] [place], [place] [address]Dr. Eli Jarvis Eosinophils/100 WBC (Bld) 3.5 % Normal 0.9-7.0 [facility] [facility] Comment on above: Performed By: #### C BC ####[facility] [address] [place] [address]DrSuzie Jarvis Erythrocyte distribution width (RBC) [Ratio] 13.8 % Normal 11.0-15.0 [facility] Comment on above: Performed By: #### C BC ####[facility] Tw[address] [place], [place] [address]DrSuzie Jarvis Hematocrit (Bld) [Volume fraction] 42.0 % Normal 42.0-54.0 [facility] Comment on above: Performed By: #### C BC ####[facility] [address] [place] [address]An. Eli Jarvis Hemoglobin (Bld) [Mass/Vol] 13.8 g/dL Critically low 14.0-18.0 [facility] Comment on above: Performed By: #### C BC ####[facility] [address] [address]Dr. Eli Jarvis IG # 0.03 10e3/ul Normal 0.00-0.03 [facility] Comment on above: Performed By: #### C BC ####[facility] M[address] [address]Dr. Eli Jarvis IG % 0.4 % Normal 0.0-0.5 [facility] Comment on above: Performed By: #### C BC ####[facility] [address]wrfe[address] [address]Dr. Eli Matheus LYMPH # 1.3 103/ul Normal 1.2-3.8 [facility] Comment on above: Performed By: #### C BC ####[facility] [address]ia[address] [address]Dr. Eli Jarvis Lymphocytes/100 WBC (Bld) 18.8 % Critically low 20.5-60.0 [facility] Comment on above: Performed By: #### C BC ####[facility] [address]chr[address] [address]Dr. Eli Jarvis MANUAL DIFF REQ NO Normal [facility] Comment on above: Performed By: #### C BC ####[facility] Fv[address]wqbq[address] [address]Dr. Eli Jarvis MCH (RBC) [Entitic mass] 27.8 pg Normal 25.9-34.0 [facility] Comment on above: Performed By: #### C BC ####[facility] Hkvvhrawwk[address] [place], [place] [address]Dr. Eli Jarvis MCHC (RBC) [Mass/Vol] 32.9 g/dL Normal 29.9-35.2 [facility] Comment on above: Performed By: #### C BC ####[facility] Xtns[address]ks[address] [place], [place] [address]Dr. Eli Matheus MCV (RBC) [Entitic vol] 84.7 fL Normal 80.0-94.0 [facility] Comment on above: Performed By: #### C BC ####[facility] [address] [address]Dr. Eli Jarvis MONO # 0.6 103/ul Normal 0.3-0.8 [facility] Comment on above: Performed By: #### C BC ####[facility] Ozyqvtjthc[address] [place], [place] [address]Dr. Eli Matheus Monocytes/100 WBC (Bld) 8.5 % Normal 1.7-12.0 [facility] Comment on above: Performed By: #### C BC ####[facility] Jps[address]ibr[address] [place], [place] [address]Dr. Eil Jarvis NEUT # 4.7 103/ul Normal 1.4-6.5 [facility] Comment on above: Performed By: #### C BC ####[facility] H[address]ugspdt[address] [place], [place] [address]Dr. Eli Matheus Neutrophils/100 WBC (Bld) 68.1 % Normal 43.0-75.0 [facility] Comment on above: Performed By: #### C BC ####[facility] Ffnxy[address] [place], [place] [address]Dr. Eli Matheus Platelet mean volume (Bld) [Entitic vol] 10.3 fL Normal 9.5-13.5 [facility] Comment on above: Performed By: #### C BC ####[facility] [address] [place], [place] [address]Dr. Eli Matheus PLT 189 103/ul Normal 150-450 [facility] Comment on above: Performed By: #### C BC ####[facility] Yinjpis[address] [place], [place] [address]Dr. Sparklealine Matheus RBC 4.96 106/ul Normal 4.70-6.10 [facility] Comment on above: Performed By: #### C BC ####[facility] Xq[address] [place], [place] [address]Dr. Eli Jarvis WBC 7.0 103/ul Normal 4.0-11.0 [facility] Comment on above: Performed By: #### C BC ####[facility] [address] [address]Dr. Eli Jarvis PROF 14(COMP METB)on 023 Albumin [Mass/Vol] 3.6 g/dL Normal 3.4-5.0 [facility] Comment on above: Performed By: #### C MP, BNP #### [facility] [address] [address] [address] Eli Jarvis Albumin/Globulin [Mass ratio] 1.1 {ratio} Normal [facility] Comment on above: Performed By: #### C MP, BNP #### [facility] [address] [place] [address] Dr. Eli Jarvis ALP [Catalytic activity/Vol] 90 U/L Normal 46-116 [facility] Comment on above: Performed By: #### C MP, BNP #### [facility] [address] [place] [address] Dr. Eli Jarvis ALT [Catalytic activity/Vol] 42 U/L Normal 16-63 [facility] Comment on above: Performed By: #### C MP, BNP #### [facility] [address] [place] [address] Dr. Eli Jarvis Anion gap [Moles/Vol] 13.5 mmol/L Normal [facility] Comment on above: Performed By: #### C MP, BNP #### [facility] [address] [address] [address] Eli Jarvis AST [Catalytic activity/Vol] 26 U/L Normal 15-37 [facility] Comment on above: Performed By: #### C MP, BNP #### [facility] [address] [place] [address] Dr. Eli Jarvis Bilirubin [Mass/Vol] 0.4 mg/dL Normal 0.2-1.0 [facility] Comment on above: Performed By: #### C MP, BNP #### [facility] [address] [place] [address] Dr. Eli Jarvis Calcium [Mass/Vol] 9.3 mg/dL Normal 8.5-10.1 [facility] Comment on above: Performed By: #### C MP, BNP #### [facility] [address] [place] [address] Dr. Eli Jarvis Chloride [Moles/Vol] 104 mmol/L Normal 98-107 [facility] Comment on above: Performed By: #### C MP, BNP #### [facility] [address] [place] [address] Dr. Eli Jarvis CO2 [Moles/Vol] 25.7 mmol/L Normal 21.0-32.0 [facility] Comment on above: Performed By: #### C MP, BNP #### [facility] [address] [place] [address] Dr. Eli Jarvis Creatinine [Mass/Vol] 1.32 mg/dL Critically high 0.70-1.30 [facility] Comment on above: Performed By: #### C MP, BNP #### [facility] [address] [place] [address] Dr. Eli Jarvis EGFR-AF VENEZUELAN >60 Normal >=60 [facility] Comment on above: Performed By: #### C MP, BNP #### [facility] [address] [place] [address] Dr. Eli Jarvis EGFR-NON AF VENEZUELAN 53 mL/min/1.73m2 Critically low >=60 [facility] Comment on above: Performed By: #### C MP, BNP #### [facility] [address] [place] [address] Dr. Eli Jarvis Globulin (S) [Mass/Vol] 3.3 g/dL Normal [facility] Comment on above: Performed By: #### C MP, BNP #### [facility] [address] [place] [address] Dr. Eli Jarvis Glucose [Mass/Vol] 154 mg/dL Critically high 74-106 [facility] Comment on above: Performed By: #### C MP, BNP #### [facility] [address] [place] [address] Dr. Eli Jarvis Potassium [Moles/Vol] 4.2 mmol/L Normal 3.5-5.1 [facility] Comment on above: Performed By: #### C MP, BNP #### [facility] [address] [address] [address] Eli Jarvis Protein [Mass/Vol] 6.9 g/dL Normal 6.4-8.2 [facility] Comment on above: Performed By: #### C MP, BNP #### [facility] [address] [address] [address] Eli Jarvis Sodium [Moles/Vol] 139 mmol/L Normal 136-145 [facility] Comment on above: Performed By: #### C MP, BNP #### [facility] [address] [place] [address] Dr. Eli Jarvis Urea nitrogen [Mass/Vol] 23.0 mg/dL Critically high 7.0-18.0 [facility] Comment on above: Performed By: #### C MP, BNP #### [facility] [address] [place] [address] Dr. Eli Jarvis Urea nitrogen/Creatinine [Mass ratio] 17.4 mg/mg Normal [facility] Comment on above: Performed By: #### C MP, BNP #### [facility] [address] [place] [address] Dr. Eli Jarvis A1C HEMOGLOBINon 11-07-2022 HbA1c (Bld) [Mass fraction] 7.6 % [employer] Other Glucose - FINGER [employer]on Glucose [Mass/Vol] 172 mg/dL [employer] Other HbA1c (Bld) [Mass fraction]o n 11-07-2022 A1C HEMOGLOBIN [employer] Other US KIDNEYSon 2022 US KIDNEYS EXAMINATION: [...] 07-27-2022 HbA1c (Bld) [Mass fraction] 7.2 % [employer] Other Glucose - FINGER STICKon Glucose [Mass/Vol] 160 mg/dL [employer] Other HbA1c (Bld) [Mass fraction]o n 07-27-2022 A1C HEMOGLOBIN [employer] Other A1C HEMOGLOBINon 04-21-2022 HbA1c (Bld) [Mass fraction] 7.6 % [employer] Other Glucose - FINGER STICKon Glucose [Mass/Vol] 184 mg/dL [employer] Other HbA1c (Bld) [Mass fraction]o n 04-21-2022 A1C HEMOGLOBIN [employer] Other MicroAlb Creat Ratio,Uon Albumin DL <= 20 mg/L (U) [Mass/Vol] 10.7432239 mg/dL High 0.0-1.8 mg/dL [employer] Other Albumin/Creatinine DL <= 20 mg/L (U) [Mass ratio] 70.741927 mg/g High 0.0-30.0 mg/g [employer] Other Creatinine (U) [Mass/Vol] 770.2249105 mg/dL [employer] Other CBC AUTO DIFFon 04-07-2022 BASO # 0.0 103/ul Normal 0.0-0.1 [facility] Comment on above: Performed By: #### C BC #### [facility] [address] [address] [address] Eli Jarvis Basophils/100 WBC (Bld) 0.6 % Normal 0.2-2.0 [facility] Comment on above: Performed By: #### C BC #### [facility] [address] [address] [address] Eli Jarvis EO # 0.2 103/ul Normal 0.0-0.7 [facility] Comment on above: Performed By: #### C BC #### [facility] [address] [place] [address] Dr. Eli Jarvis Eosinophils/100 WBC (Bld) 2.9 % Normal 0.9-7.0 [facility] Comment on above: Performed By: #### C BC #### [facility] [address] [address] [address] Eli Jarvis Erythrocyte distribution width (RBC) [Ratio] 13.8 % Normal 11.0-15.0 [facility] Comment on above: Performed By: #### C BC #### [facility] [address] [address] [address] Eli Jarvis Hematocrit (Bld) [Volume fraction] 40.7 % Critically low 42.0-54.0 [facility] Comment on above: Performed By: #### C BC #### [facility] [address] [address] [address] Eli Jarvis Hemoglobin (Bld) [Mass/Vol] 13.3 g/dL Critically low 14.0-18.0 [facility] Comment on above: Performed By: #### C BC #### [facility] [address] [address] [address] Eli Jarvis IG # 0.04 10e3/ul Critically high 0.00-0.03 [facility] Comment on above: Performed By: #### C BC #### [facility] [address] [place] [address] Dr. Eli Jarvis IG % 0.6 % Critically high 0.0-0.5 [facility] Comment on above: Performed By: #### C BC #### [facility] [address] [place] [address] Dr. Eli Jarvis LYMPH # 1.3 103/ul Normal 1.2-3.8 [facility] Comment on above: Performed By: #### C BC #### [facility] [address] [place] [address] Dr. Eli Jarvis Lymphocytes/100 WBC (Bld) 18.7 % Critically low 20.5-60.0 [facility] Comment on above: Performed By: #### C BC #### [facility] [address] [place] [address] Dr. Eli Jarvis MANUAL DIFF REQ NO Normal [facility] Comment on above: Performed By: #### C BC #### [facility] [address] [place] [address] Dr. Eli Jarvis MCH (RBC) [Entitic mass] 28.1 pg Normal 25.9-34.0 [facility] Comment on above: Performed By: #### C BC #### [facility] [address] [place] [address] Dr. Eli Jarvis MCHC (RBC) [Mass/Vol] 32.7 g/dL Normal 29.9-35.2 [facility] Comment on above: Performed By: #### C BC #### [facility] [address] [place] [address] Dr. Eli Jarvis MCV (RBC) [Entitic vol] 86.0 fL Normal 80.0-94.0 [facility] Comment on above: Performed By: #### C BC #### [facility] [address] [place] [address] Dr. Eli Jarvis MONO # 0.4 103/ul Normal 0.3-0.8 [facility] Comment on above: Performed By: #### C BC #### [facility] [address] [id number] [address] Eli Jarvis Monocytes/100 WBC (Bld) 6.2 % Normal 1.7-12.0 [facility] Comment on above: Performed By: #### C BC #### [facility] [address] [address] [address] Eli Jarvis NEUT # 4.9 103/ul Normal 1.4-6.5 [facility] Comment on above: Performed By: #### C BC #### [facility] [address] [place] [address] Dr. Eli Jarvis Neutrophils/100 WBC (Bld) 71.0 % Normal 43.0-75.0 [facility] Comment on above: Performed By: #### C BC #### [facility] [address] [place] [address] Dr. Eli Jarvis Platelet mean volume (Bld) [Entitic vol] 9.9 fL Normal 9.5-13.5 [facility] Comment on above: Performed By: #### C BC #### [facility] [address] [place] [address] Dr. Eli Jarvis PLT 184 103/ul Normal 150-450 [facility] Comment on above: Performed By: #### C BC #### [facility] [address] [place] [address] Dr. Eli Jarvis RBC 4.73 106/ul Normal 4.70-6.10 [facility] Comment on above: Performed By: #### C BC #### [facility] [address] [place] [address] Dr. Eli Jarvis WBC 6.9 103/ul Normal 4.0-11.0 [facility] Comment on above: Performed By: #### C BC #### [facility] [address] [place], [place] [id number] Dr. Eli Jarvis LIPID PROFILEon 04-07-2022 CHOL-HDL RATIO NORM SEE BELOW Normal [facility] Comment on above: Result Comment: 3.3 - 4.4 LOW RISK 4.4 - 7.1 AVERAGE RISK 7.1 - 11.0 MODERATE RISK >11.0 HIGH RISK Performed By: #### C MP, LIPID ####[facility] [address] [id number]. Eli Jarvis Cholesterol [Mass/Vol] 127 mg/dL Normal <=200 [facility] Comment on above: Performed By: #### C MP, LIPID ####[facility] [address] [place], [place] [address]Eu. Eli Jarvis Cholesterol in HDL [Mass/Vol] 36 mg/dL Critically low 40-60 [facility] Comment on above: Performed By: #### C MP, LIPID ####[facility] [address] [phone]. Eli Jarvis Cholesterol in LDL [Mass/Vol] 58.4 mg/dL Normal [facility] Comment on above: Performed By: #### C MP, LIPID ####[facility] [address] [address]Dr. Eli Jarvis Cholesterol.total/Ch olesterol in HDL [Mass ratio] 3.5 {ratio} Normal [facility] Comment on above: Performed By: #### C MP, LIPID ####[facility] [address] [place] [phone]. Eli Jarvis HDL NORMAL > or = 60 mg/dl - LO W CARDIOVASCULAR RISK <40 mg/dl - HIGH CARDIOVASCULAR RISK Normal [facility] Comment on above: Performed By: #### C MP, LIPID ####[facility] [address] [place] [phone]. Eli Jarvis LDL CALC NORMAL SEE BELOW Normal [facility] Comment on above: Result Comment: <100 mg/dl OPTIMAL 100 - 129 mg/dl NEAR OR ABOVE OPTIMAL 130 - 159 mg/dl BORDERLINE HIGH 160 - 189 mg/dl HIGH >190 mg/dl VERY HIGH Performed By: #### C MP, LIPID ####[facility] [address] [place] [phone]. Eli Jarvis Triglyceride [Mass/Vol] 163 mg/dL Critically high <=150 [facility] Comment on above: Performed By: #### C MP, LIPID ####[facility] [address] [address]Dr. Eli Jarvis VLDL CALC 32.6 mg/dL Normal [facility] Comment on above: Performed By: #### C MP, LIPID ####[facility] [address] [place] [address]Dr. Eli Jarvis PROF 14(COMP METB)on 022 Albumin [Mass/Vol] 3.8 g/dL Normal 3.4-5.0 [facility] Comment on above: Performed By: #### C MP, LIPID ####[facility] [address] [address]Dr. Eli Jarvis Albumin/Globulin [Mass ratio] 1.1 {ratio} Normal [facility] Comment on above: Performed By: #### C MP, LIPID ####[facility] [address] [place], [place] [address]Dr. Eli Jarvis ALP [Catalytic activity/Vol] 89 U/L Normal 46-116 [facility] Comment on above: Performed By: #### C MP, LIPID ####[facility] [address] [place], [place] [address]Dr. Eli Jarvis ALT [Catalytic activity/Vol] 43 U/L Normal 16-63 [facility] Comment on above: Performed By: #### C MP, LIPID ####[facility] [address] [address]Dr. Eli Jarvis Anion gap [Moles/Vol] 10.7 mmol/L Normal [facility] Comment on above: Performed By: #### C MP, LIPID ####[facility] [address] [place], [place] [address]Dr. Eli Jarvis AST [Catalytic activity/Vol] 24 U/L Normal 15-37 [facility] Comment on above: Performed By: #### C MP, LIPID ####[facility] [address] [place], [place] [address]Dr. Eli Jarvis Bilirubin [Mass/Vol] 0.2 mg/dL Normal 0.2-1.0 [facility] Comment on above: Performed By: #### C MP, LIPID ####[facility] [address] [phone]. Eli Jarvis Calcium [Mass/Vol] 9.1 mg/dL Normal 8.5-10.1 [facility] Comment on above: Performed By: #### C MP, LIPID ####[facility] [address] [phone]. Eli Jarvis Chloride [Moles/Vol] 104 mmol/L Normal 98-107 [facility] Comment on above: Performed By: #### C MP, LIPID ####[facility] [address]adj[address] [place] [phone]. Eli Jarvis CO2 [Moles/Vol] 27.5 mmol/L Normal 21.0-32.0 [facility] Comment on above: Performed By: #### C MP, LIPID ####[facility] [address] [address]Dr. Eli Jarvis Creatinine [Mass/Vol] 1.15 mg/dL Normal 0.70-1.30 [facility] Comment on above: Performed By: #### C MP, LIPID ####[facility] [address] [place] [phone]. Eli Jarvis EGFR-AF VENEZUELAN >60 Normal >=60 [facility] Comment on above: Performed By: #### C MP, LIPID ####[facility] [address]se[address] [phone]. Eli Jarvis EGFR-NON AF VENEZUELAN >60 Normal >=60 [facility] Comment on above: Performed By: #### C MP, LIPID ####[facility] [address] [phone]. Eli Jarvis Globulin (S) [Mass/Vol] 3.4 g/dL Normal [facility] Comment on above: Performed By: #### C MP, LIPID ####[facility] Wy[address]ayq[address] [place] [phone]. Eli Jarvis Glucose [Mass/Vol] 157 mg/dL Critically high 74-106 [facility] Comment on above: Performed By: #### C MP, LIPID ####[facility] [address] [place], [place] [address]Yf. Eli Jarvis Potassium [Moles/Vol] 4.2 mmol/L Normal 3.5-5.1 [facility] Comment on above: Performed By: #### C MP, LIPID ####[facility] [address] [place], [place] [address]Qb. Eli Jarvis Protein [Mass/Vol] 7.2 g/dL Normal 6.4-8.2 [facility] Comment on above: Performed By: #### C MP, LIPID ####[facility] [address] [place] [id number]. Eli Jarvis Sodium [Moles/Vol] 138 mmol/L Normal 136-145 [facility] Comment on above: Performed By: #### C MP, LIPID ####[facility] [address]josox[address] [place] [id number]. Eli Jarvis Urea nitrogen [Mass/Vol] 26.0 mg/dL Critically high 7.0-18.0 [facility] Comment on above: Performed By: #### C MP, LIPID ####[facility] [address] [id number]. Eli Jarvis Urea nitrogen/Creatinine [Mass ratio] 22.6 mg/mg Normal [facility] Comment on above: Performed By: #### C MP, LIPID ####[facility] [address] [place] [id number]. Eli Jarvis A1C HEMOGLOBINon 10-21-2021 HbA1c (Bld) [Mass fraction] 6.6 % [employer] Other Glucose - FING[employer] Glucose [Mass/Vol] 169 mg/dL [employer] Other HbA1c (Bld) [Mass fraction]o n 10-21-2021 A1C HEMOGLOBIN [employer] Other Comprehensive Metabolic Pane deann 07-29-2021 Albumin [Mass/Vol] 3.9 g/dL 3.2-5.5 [employer] Other Albumin/Globulin [Mass ratio] 1.6 {ratio} [facility] [employer] Other ALP [Catalytic activity/Vol] 63 U/L 32-92 [facility] Other ALT [Catalytic activity/Vol] 32 U/L 10-60 [facility] Other AST [Catalytic activity/Vol] 32 U/L 10-42 [facility] [employer] Other Bilirubin [Mass/Vol] 0.5 mg/dL 0.3-1.2 [facility] [employer] Other Calcium [Mass/Vol] 9.7 mg/dL 8.2-10.2 [facility] Other Chloride [Moles/Vol] 105 mmol/L 95-114 [facility] [employer] Other CO2 [Moles/Vol] 22.7 mmol/L 22.0-30.0 [facility] [employer] Other Creatinine [Mass/Vol] 1.28 mg/dL 0.64-1.27 [facility] [employer] Other Glucose [Mass/Vol] 111 mg/dL 70-100 [facility] [employer] Other Potassium [Moles/Vol] 4.1 mmol/L 3.5-5.1 [facility] Other Protein [Mass/Vol] 6.3 g/dL 6.1-7.9 [facility] Other Sodium [Moles/Vol] 139 mmol/L 136-146 [facility] Other Urea nitrogen [Mass/Vol] 23 mg/dL 9-23 [facility] Other Comprehensive Metabolic Panel 55 [facility] Other Comprehensive Metabolic Panel > 60 [facility] [employer] Other Comprehensive Metabolic Panel 2.4 [facility] [employer] Other Hepatitis Acute Panelon 10-2 Hepatitis Acute Panel Negative Negative [facility] [employer] Other Hepatitis Acute Panel <0.1 0.0-0.9 [facility] [employer] Other Vital Signs Date Time Vital Sign Value Performing Clinician Facility 04-24-2024 08:50-0400 Body height 170.2 cm Chiqui Robles MD Work Phone: [facility] 04-24-2024 08:50-0400 Body mass index (BMI) [Ratio] 42.28 kg/m2 Chiqui Robles MD Work Phone: [facility] [facility] 04-24-2024 08:50-0400 Body weight 122.47 kg Chiqui Robles MD Work Phone: [facility] 04-24-2024 08:50-0400 Diastolic blood pressure 89 mm[Hg] Chiqui Robles MD Work Phone: [facility] 04-24-2024 08:50-0400 Heart rate 61 /min Chiqui Robles MD Work Phone: [facility] 04-24-2024 08:50-0400 SaO2% (BldA) [Mass fraction] 95 % Chiqui Robles MD Work Phone: [facility] 04-24-2024 08:50-0400 Systolic blood pressure 122 mm[Hg] Chiqui Robles MD Work Phone: [facility] 02-29-2024 13:41-0400 Body height 170.2 cm Herberth Araujo MD, PhD Work Phone: [facility] 02-29-2024 13:41-0400 Body mass index (BMI) [Ratio] 42.29 kg/m2 Herberth Araujo MD, PhD Work Phone: [facility] 02-29-2024 13:41-0400 Body temperature 97.39 [degF] Herberth Araujo MD, PhD Work Phone: [facility] 02-29-2024 13:41-0400 Body weight 122.47 kg Herberth Araujo MD, PhD Work Phone: [facility] 02-29-2024 13:41-0400 Diastolic blood pressure 73 mm[Hg] Herberth Araujo MD, PhD Work Phone: [facility] 02-29-2024 13:41-0400 Heart rate 62 /min Herberth Araujo MD, PhD Work Phone: [facility] 02-29-2024 13:41-0400 SaO2% (BldA) [Mass fraction] 94 % Herberth Araujo MD, PhD Work Phone: [facility] 02-29-2024 13:41-0400 Systolic blood pressure 138 mm[Hg] Herberth Araujo MD, PhD Work Phone: [facility] 02-05-2024 12:17-0400 Body weight 124.74 kg Francoise Singletary MD Work Phone: [facility] 02-05-2024 12:17-0400 Diastolic blood pressure 70 mm[Hg] Francoise Singletary MD Work Phone: [facility] 02-05-2024 12:17-0400 Heart rate 80 /min Francoise Singletary MD Work Phone: [facility] 02-05-2024 12:17-0400 Systolic blood pressure 131 mm[Hg] Francoise Singletary MD Work Phone: [facility] 09-11-2023 11:00-0500 Body height 167.64 cm Tondra Mapus Other [facility] 09-11-2023 11:00-0500 Body mass index (BMI) [Ratio] 44.91 kg/m2 Tondra Mapus Other [employer] Other 09-11-2023 11:00-0500 Body weight 126.24 kg Tondra Mapus Other [employer] Other 09-11-2023 11:00-0500 Body weight 126.23 kg MD Scarlet Johnson Work Phone: [facility] 09-11-2023 11:00-0500 Diastolic blood pressure 82 mm[Hg] Tondra Mapus Other [facility] 09-11-2023 11:00-0500 Respiratory rate 18 /min Tondra Mapus Other [facility] [employer] Other 09-11-2023 11:00-0500 SaO2% (BldA) [Mass fraction] 99 % Tondra Mapus Other [facility] [employer] Other 09-11-2023 11:00-0500 Systolic blood pressure 153 mm[Hg] Tondra Mapus Other [facility] 08-24-2023 13:45-0500 Body height 167.64 cm Eligio Soni Other [facility] 08-24-2023 13:45-0500 Body mass index (BMI) [Ratio] 44.22 kg/m2 Eligio Soni Other [facility] [employer] Other 08-24-2023 13:45-0500 Body temperature 97.4 [degF] Eligio Soni Other [facility] [employer] Other 08-24-2023 13:45-0500 Body weight 124.29 kg Eligio Soni Other [facility] Other 08-24-2023 13:45-0500 Body weight 124.28 kg MD Scarlet Johnson Work Phone: [facility] 08-24-2023 13:45-0500 Diastolic blood pressure 60 mm[Hg] Eligio Soni Other [facility] 08-24-2023 13:45-0500 SaO2% (BldA) [Mass fraction] 97 % Eligio Russellfabiola Other [facility] Other 08-24-2023 13:45-0500 Systolic blood pressure 130 mm[Hg] Eligio Russellfabiola Other [facility] 03-07-2023 10:00-0400 Body height 167.64 cm Terry Rigoberto Other [employer] Other 03-07-2023 10:00-0400 Body mass index (BMI) [Ratio] 43.61 kg/m2 Terrynikolai Kelley Other [employer] Other 03-07-2023 10:00-0400 Body weight 122.56 kg Terry Kelley Other [employer] Other 03-07-2023 10:00-0400 Diastolic blood pressure 70 mm[Hg] Terry Kelley Other [employer] Other 03-07-2023 10:00-0400 Respiratory rate 20 /min Terry Rigoberto Other [employer] Other 03-07-2023 10:00-0400 SaO2% (BldA) [Mass fraction] 96 % Terry Kelley Other [employer] Other 03-07-2023 10:00-0400 Systolic blood pressure 134 mm[Hg] Terry Kelley Other [employer] Other 02-14-2023 09:45-0400 Body height 172.72 cm Ton Map Other [employer] Other 02-14-2023 09:45-0400 Body mass index (BMI) [Ratio] 41.32 kg/m2 Tondra Mapus Other [employer] Other 02-14-2023 09:45-0400 Body weight 123.29 kg Tondra Mapus Other [employer] Other 02-14-2023 09:45-0400 Diastolic blood pressure 82 mm[Hg] Tondra Mapus Other [employer] Other 02-14-2023 09:45-0400 Respiratory rate 18 /min Tondra Mapus Other [employer] Other 02-14-2023 09:45-0400 SaO2% (BldA) [Mass fraction] 97 % Tondra Mapus Other [employer] Other 02-14-2023 09:45-0400 Systolic blood pressure 157 mm[Hg] Tondra Mapus Other [employer] Other 01-20-2023 12:15-0400 Body height 172.72 cm Carito Fitt Other [employer] Other 01-20-2023 12:15-0400 Body mass index (BMI) [Ratio] 40.71 kg/m2 Carito Fitt Other [employer] Other 01-20-2023 12:15-0400 Body weight 121.47 kg Carito Fitt Other [employer] Other 01-05-2023 11:15-0400 Body height 172.72 cm Terry Kelley Other [employer] Other 01-05-2023 11:15-0400 Body mass index (BMI) [Ratio] 40.96 kg/m2 Terry Kimblediff Other [employer] Other 01-05-2023 11:15-0400 Body weight 122.2 kg Terry Kimblediff Other [employer] Other 01-05-2023 11:15-0400 Diastolic blood pressure 73 mm[Hg] Terry Kimblediff Other [employer] Other 01-05-2023 11:15-0400 Respiratory rate 18 /min Terry Kimblediff Other [employer] Other 01-05-2023 11:15-0400 SaO2% (BldA) [Mass fraction] 98 % Terry Kimblediff Other [employer] Other 01-05-2023 11:15-0400 Systolic blood pressure 143 mm[Hg] Terry Kimblediff Other [employer] Other 11-24-2022 12:15-0500 Body height 172.72 cm Carito Fitt Other [employer] Other 11-24-2022 12:15-0500 Body mass index (BMI) [Ratio] 42.22 kg/m2 Carito Fitt Other [employer] Other 11-24-2022 12:15-0500 Body weight 125.96 kg Carito Fitt Other [employer] Other 11-18-2022 11:15-0500 Body height 172.72 cm Terry Kelley Other [employer] Other 11-18-2022 11:15-0500 Body mass index (BMI) [Ratio] 41.96 kg/m2 Terry Kelley Other [employer] Other 11-18-2022 11:15-0500 Body weight 125.19 kg Terry Kelley Other [employer] Other 11-18-2022 11:15-0500 Diastolic blood pressure 75 mm[Hg] Terry Kelley Other [employer] Other 11-18-2022 11:15-0500 Respiratory rate 18 /min Terry Kelley Other [employer] Other 11-18-2022 11:15-0500 SaO2% (BldA) [Mass fraction] 99 % Terry Kelley Other [employer] Other 11-18-2022 11:15-0500 Systolic blood pressure 148 mm[Hg] Terry Kelley Other [employer] Other 11-07-2022 10:15-0500 Body height 172.72 cm Tondrboom Grantus Other [employer] Other 11-07-2022 10:15-0500 Body mass index (BMI) [Ratio] 42.58 kg/m2 Tondra Mapus Other [employer] Other 11-07-2022 10:15-0500 Body weight 127.05 kg Tondra Mapus Other [employer] Other 11-07-2022 10:15-0500 Diastolic blood pressure 83 mm[Hg] Tondra Mapus Other [employer] Other 11-07-2022 10:15-0500 Respiratory rate 18 /min Tondra Mapus Other [employer] Other 11-07-2022 10:15-0500 SaO2% (BldA) [Mass fraction] 98 % Tondra Mapus Other [employer] Other 11-07-2022 10:15-0500 Systolic blood pressure 170 mm[Hg] Tondra Mapus Other [employer] Other 10-18-2022 15:00-0500 Body height 172.72 cm Carito Fitt Other [employer] Other 2022 16:15-0400 Body height 172.72 cm Carito Fitt Other [employer] Other 07-27-2022 12:00-0400 Body height 172.72 cm Tondra Mapus Other [employer] Other 07-27-2022 12:00-0400 Body mass index (BMI) [Ratio] 40.9 kg/m2 Tondra Mapus Other [employer] Other 07-27-2022 12:00-0400 Body weight 122.02 kg Tondra Mapus Other [employer] Other 07-27-2022 12:00-0400 Diastolic blood pressure 75 mm[Hg] Tondra Mapus Other [employer] Other 07-27-2022 12:00-0400 Respiratory rate 20 /min Tondra Mapus Other [employer] Other 07-27-2022 12:00-0400 SaO2% (BldA) [Mass fraction] 97 % Tondra Mapus Other [employer] Other 07-27-2022 12:00-0400 Systolic blood pressure 141 mm[Hg] Tondra Mapus Other [employer] Other 06-08-2022 10:45-0400 Body height 172.72 cm Carito Fitt Other [employer] Other 04-21-2022 12:00-0400 Body height 172.72 cm Tondra Mapus Other [employer] Other 04-21-2022 12:00-0400 Body mass index (BMI) [Ratio] 39.67 kg/m2 Tondra Mapus Other [employer] Other 04-21-2022 12:00-0400 Body weight 118.34 kg Tondra Mapus Other [employer] Other 04-21-2022 12:00-0400 Diastolic blood pressure 74 mm[Hg] Tondra Mapus Other [employer] Other 04-21-2022 12:00-0400 Respiratory rate 20 /min Tondra Mapus Other [employer] Other 04-21-2022 12:00-0400 SaO2% (BldA) [Mass fraction] 97 % Tondra Mapus Other [employer] Other 04-21-2022 12:00-0400 Systolic blood pressure 143 mm[Hg] Tondra Mapus Other [employer] Other 10-21-2021 12:00-0500 Body height 172.72 cm Tondra Mapus Other [employer] Other 10-21-2021 12:00-0500 Body mass index (BMI) [Ratio] 40.14 kg/m2 Tondra Mapus Other [employer] Other 10-21-2021 12:00-0500 Body weight 119.75 kg Tondra Mapus Other [employer] Other 10-21-2021 12:00-0500 Diastolic blood pressure 78 mm[Hg] Tondra Mapus Other [employer] Other 10-21-2021 12:00-0500 Respiratory rate 20 /min Tondra Mapus Other [employer] Other 10-21-2021 12:00-0500 SaO2% (BldA) [Mass fraction] 97 % Tondra Mapus Other [employer] Other 10-21-2021 12:00-0500 Systolic blood pressure 147 mm[Hg] Tondra Mapus Other [employer] Other 07-21-2021 15:45-0400 Body height 172.72 cm Morgan Kunz Other [employer] Other 07-21-2021 15:45-0400 Body mass index (BMI) [Ratio] 38.77 kg/m2 Morgan Kunz Other [employer] Other 07-21-2021 15:45-0400 Body weight 115.67 kg Morgan Kunz Other [employer] Other 12-14-2017 15:17-0500 Body height 170.18 cm MD Scarlet Johnson Work Phone: [facility] Encounters Encounter Date Encounter Type Care Provider Facility Start: 11-06-2024 ambulatory Araceli BERMUDEZ Facility :[facility] Start: 07-17-2024 ambulatory Araceli BERMUDEZ Facility :[facility] Start: 07-01-2024 End: 07-01-2024 ambulatory MIHIR B APLING Not Available Start: 06-26-2024 End: 06-26-2024 ambulatory [facility] Start: 06-25-2024 End: 06-25-2024 ambulatory KAJAL R DOLCE Not Available Start: 06-19-2024 End: 06-19-2024 ambulatory Kajal R Dolce Facility:[facility] Start: 06-19-2024 End: 06-19-2024 ambulatory HYACINTH D DOLCE Not Available Start: 06-18-2024 End: 06-18-2024 ambulatory ANDREA AGUILAR Not Available Start: 06-12-2024 End: 06-12-2024 ambulatory Kajal R Dolce Facility:[facility] Start: 06-12-2024 End: 06-12-2024 ambulatory MIHIR B APLING Not Available Start: 06-07-2024 End: 06-07-2024 [facility] Britney Rodriguez PhD Work Phone: Pain Recovery Comment on above: Adjustment disorder with depressed mood (Primary Dx); Complex regional pain syndrome type II of right lower limb; Chronic toe pain, right foot Start: 06-05-2024 End: 06-05-2024 ambulatory Kajal R Dolce Facility:[facility] Start: 05-27-2024 End: 05-27-2024 ambulatory MIHIR B APLING Not Available Start: 05-23-2024 ambulatory Chiqui chapa MD Work Phone: Neurology Pain Comment on above: taking memantine HCL Start: 05-22-2024 End: 05-22-2024 ambulatory DAVID ACOSTA Facility[facility] Start: 05-13-2024 End: 05-13-2024 ambulatory Haider Hickman Facility: [facility] Start: 05-09-2024 End: 05-09-2024 ambulatory ANDREA A JEFF Not Available Start: 05-07-2024 ambulatory Morgan Trinidad Therapist Work Phone: Pain Recovery Comment on above: next step, resources Start: 05-07-2024 E-mail encounter fro m caregiver Morgan Trinidad Therapist Work Phone: Pain Recovery Start: 05-06-2024 End: 05-06-2024 [facility] Morgan Trinidad Therapist Work Phone: Pain Recovery Comment on above: Adjustment disorder with depressed mood (Primary Dx); Complex regional pain syndrome type II of right lower limb; Chronic toe pain, right foot Start: 04-24-2024 End: 04-24-2024 ambulatory HERBERTH ARAUJO Facility:[facility] Start: 04-24-2024 End: 04-24-2024 Patient encounter [...] End: 04-03-2024 ambulatory HERBERTH ARAUJO Facility:[facility] Start: 03-26-2024 End: 03-26-2024 ambulatory Haider Hickman Facility: [facility] Start: 03-19-2024 Telephone encounter Herberth meyers MD, PhD Work Phone: Pain Management Comment on above: Nurse Triage Call Start: 03-08-2024 End: 03-08-2024 ambulatory Haider Hickman Facility:[facility] Start: 03-07-2024 End: 03-07-2024 ambulatory Haider Hickman Facility:[facility] Start: 02-29-2024 End: 02-29-2024 ambulatory HERBERTH ARAUJO Facility:[facility] Start: 02-29-2024 End: 02-29-2024 Patient encounter [...] type (HCC) Start: 02-22-2024 End: 02-22-2024 ambulatory ANDERA AGUILAR Not Available Start: 02-06-2024 Telephone encounter Francoise hemphill MD Work Phone: Pain Management Start: 02-05-2024 End: 02-05-2024 ambulatory FRANCOISE SINGLETARY Facility:[facility] Start: 02-05-2024 End: 02-05-2024 Patient encounter procedure Francoise Singletary MD Work Phone: Pain Management Comment on above: Chronic toe pain, ri ght foot (Primary Dx); Painful diabetic neuropathy (HCC); Class 3 severe obesity with serious comorbidity and body mass index (BMI) of 40.0 to 44.9 in adult, unspecified obesity type (HCC) Start: 01-24-2024 End: 01-24-2024 ambulatory Araceli BERMUDEZ Facility:[facility] Start: 01-22-2024 End: 01-22-2024 ambulatory MACY MCPHERSON Not Available Start: 01-04-2024 End: 01-04-2024 ambulatory Araceli BERMUDEZ Facility:[facility] Start: 01-03-2024 End: 01-03-2024 ambulatory MIHIR PARISI Not Available Start: 12-29-2023 End: 12-29-2023 ambulatory Araceli Mile BERMUDEZ Facility:[facility] Start: 12-26-2023 End: 12-26-2023 ambulatory Haider Hickman Facility:[facility] Start: 12-14-2023 End: 12-14-2023 ambulatory ANDREA AGUILAR Not Available Start: 12-04-2023 End: 12-05-2023 [facility]ulatory [facility] Start: 10-18-2023 End: 10-18-2023 ambulatory Araceli BERMUDEZ Facility: [facility] Start: 10-16-2023 End: 10-17-2023 ambulatory [facility] Start: 10-05-2023 End: 10-05-2023 ambulatory ANDREA AGUILAR Not Available Start: 09-25-2023 End: 09-26-2023 ambulatory Miguelangel Mac [facility] Start: 09-20-2023 End: 09-20-2023 ambulatory Haider Hickman Facility:[facility] Start: 09-12-2023 End: 09-12-2023 ambulatory Tondra Mapus Other [employer] Other Start: 09-12-2023 Telephone encounter Tondra Mapus [facility] Start: 09-11-2023 (DM) Diabetes Tondra Mapus [facility] Start: 09-11-2023 End: 09-12-2023 ambulatory MD Scarlet Johnson Work Phone: [employer] Other Start: 09-11-2023 End: 09-11-2023 Discharged Recurring MD Scarlet [facility] Work Phone: Start: 09-11-2023 End: 09-11-2023 Patient encounter procedure MD Scarlet Johnson Work Phone: [facility] Work Phone: Start: 08-24-2023 End: 08-24-2023 Patient encounter procedure MD Scarlet Johnson Work Phone: [facility] Start: 08-24-2023 End: 08-24-2023 ambulatory MD Scarlet Johnson Work Phone: [facility] Work Phone: Start: 08-24-2023 Office outpatient ne w 60 minutes Eligio Soni [facility] Start: 08-24-2023 End: 08-24-2023 Patient encounter procedure MD Scarlet Johnson Work Phone: [facility] Work Phone: Start: 08-21-2023 End: 08-21-2023 ambulatory Haider Hickman Facility:[facility] [place] Start: 07-26-2023 End: 07-26-2023 ambulatory Haider Hickman Facility:[facility] [place] [facility] Start: 06-27-2023 ambulatory Haider Hickman Facility: [facility] Start: 06-26-2023 End: 06-26-2023 ambulatory Kaleb Mallory Facility:[facility] Start: 06-19-2023 End: 06-20-2023 ambulatory Miguelangel Mac MD Facility:[facility] Start: 06-14-2023 End: 06-14-2023 ambulatory Daniela Juanita Other [facility] [employer] Other Start: 06-14-2023 Telephone encounter [facility] Start: 06-09-2023 End: 06-09-2023 ambulatory Carito Frandyjosiane Other [facility] Other Start: 06-09-2023 Nursing evaluation o f patient and report [facility] Start: 06-09-2023 Registered Recurring MD Scarlet franks Work Phone: [facility] Work Phone: Start: 06-05-2023 End: 06-06-2023 ambulatory Miguelangel Mac MD Facility:[facility] Start: 05-31-2023 End: 05-31-2023 ambulatory Tondra Mapus Other [employer] Other Start: 05-31-2023 Telephone encounter Tondra Mapus [facility] Start: 05-22-2023 End: 05-23-2023 ambulatory Miguelangel Mac MD Facility:[facility] [place] Start: 03-07-2023 Follow-up encounter [facility] Start: 03-07-2023 End: 03-08-2023 ambulatory Terry Kelley [facility] [employer] Other Start: 02-17-2023 End: 02-17-[address] JOVITA WOODARD . Facility:[facility] Start: 02-14-2023 (DM) Diabetes Tondra Juanitaus [facility] Start: 02-14-2023 End: 02-14-2023 ambulatory Tondra Mapus Other [employer] Other Start: 01-20-2023 ([facility] RD FU) [facility] F/ [facility] Carito West [facility] Start: 01-20-2023 End: 01-20-2023 ambulatory Carito [place] Other [employer] Other Start: 01-05-2023 End: 01-05-2023 ambulatory Terry Kelley Other [employer] Other Start: 01-05-2023 Follow-up encounter [facility] Start: 12-30-2022 End: 12-31-2022 ambulatory MARY APARICIO Facility:[facility] Start: 12-29-2022 End: 12-30-[address] BRITTNY MORALES Facility:[facility] Start: 12-21-2022 End: 01-28-[address] SCARLET JOHNSON . Facility:[facility] Start: 12-09-[address] SCARLET JOHNSON . Facil ity:[facility] Start: 12-08-2022 End: 12-09-[address] MORGAN ROJO Facility:[facility] Start: 11-25-2022 End: 11-26-[address] TERRY KELLEY Facility:[facility] Start: [facility]-24-20[facility] Initial Provider Carito West [facility] Start: 11-24-2022 End: 11-24-2022 ambulatory Carito [place] Other [employer] Other Start: 11-22-2022 End: 11-22-2022 ambulatory Tona Mapus Other [employer] Other Start: 11-22-2022 Nursing evaluation o f patient and report Tona Emi [facility] Start: 11-18-2022 End: 11-18-2022 ambulatory Terry Kelley Other [employer] Other Start: 11-18-2022 Nutrition therapy Terry Kelley [facility] Start: 11-08-2022 End: 11-09-[address] SCARLET JOHNSON . Facility:[facility] Start: 11-07-2022 (DM) Diabetes Tona Emi [facility] Start: 11-07-2022 End: 11-07-2022 ambulatory Tondra Mapus Other [employer] Other Start: 10-18-2022 (RD) Residential Living Assistant Carito West [facility] Start: 10-18-2022 End: 10-18-2022 ambulatory Carito [place] Other [employer] Other Start: 08-18-2022 End: 08-19-[address] BRITTNY MORALES Facility:[facility] Start: 2022 ([facility] DB FU) [facility] Diabetes F/U Carito [place] [facility] Start: 2022 End: 08-11-[address] ARACELI BERMUDEZ [facility] [employer] Other Start: 07-29-2022 End: 07-30-[address] SCARLET JOHNSON . Facility: Start: 07-27-2022 (DM) Diabetes Tondra Mapus [facility] Start: 07-27-2022 End: 07-27-2022 ambulatory Tondra Mapus Other [employer] Other Start: 06-08-2022 (Healthcare Prof) Healthcare Prof Carito [facility] Start: 06-08-2022 End: 06-08-2022 ambulatory Carito [place] Other [employer] Other Start: 04-21-2022 (DM) Diabetes Tondra Mapus [facility] Start: 04-21-2022 End: 04-21-2022 ambulatory Tondra Mapus Other [employer] Other Start: 04-21-2022 Telephone encounter Tondra Mapus [facility] Start: 04-07-2022 End: 04-08-[address] SCARLET JOHNSON . Facility: Start: 10-21-2021 (DM) Diabetes Tondra Mapus [facility] Start: 10-21-2021 End: 10-21-2021 ambulatory Tondra Mapus Other [employer] Other Start: 07-21-2021 Office outpatient ne w 45 minutes Morgan Kunz [facility] Procedures Date Procedure Procedure Detail Performing Clinician Start: 08-24-2023 Duplex scan of lower limb veins MD Scarlet Johnson Work Phone: Plan of Treatment Date Care Activity Detail Author Start: 05-15-2025 ambulatory Ambulatory Facility:[facility] Start: 09-24-2024 ambulatory Ambulatory Facility:[facility] Start: 08-14-2024 End: 08-14-2024 Patient encounter procedure 08/14/2024 10:00 AM EST Office Visit [facility] [id number] [facility] [place] [address] Chiqui Robles MD [address] [place] [address] 1 Month Follow Up Neurology Pain Comment on above: 1 Month Follow Up Start: 06-09-2024 Influenza vaccination C [facility] Start: 06-07-2024 End: 06-07-2024 ambulatory 06/07/2024 12:30 PM EDT [facility] [id number] [place] [address] Britney Rodriguez, PhD [address] [place] [address] [facility] Comment on above: [facility] Start: 05-06-2024 End: 05-06-2024 ambulatory 05/06/2024 9:00 AM EDT [facility] [id number] [place] [address] Morgan Trinidad, Therapist [address] [place] [address] PAIN PSYCH Pain Recovery Comment on above: PAIN PSYCH Start: 04-17-2024 End: 04-17-2024 Patient encounter procedure 04/17/2024 10:00 AM EDT Office Visit Pain Management [id number] [place] [address] Eufemia Ortiz, PA-C [address] [place] [address] SUTURAL REMOVAL Pain Management Comment on above: SUTURAL REMOVAL Start: 04-03-2024 End: 04-03-2024 Admission to same day surgery center 04/03/2024 10:00 AM EDT - 04/03/2024 11:05 AM EDT Surgery Pain Management [id number] [place] [address] Herberth Araujo MD, PhD [address] [place] [address] Right L4 and L5 DRG Trial Pain Management Comment on above: Right L4 and L5 DRG Trial Start: 04-03-2024 End: 04-03-2024 Prq impltj nstim electrode array epidural PERCUTANEOUS IMPLANT LEAD NEUROSTIM EPIDURAL TRIAL Chronic toe pain, right foot Complex regional pain syndrome type II of right lower limb 04/03/2024 10:00 AM EDT [facility] Start: 04-03-2024 Subsequent hospital visit by physician 04/03/2024 10:00 AM EDT Hospital Encounter Pain Management [address] [place] [address] Herberth Araujo MD, PhD [address] [place] [address] Chronic toe pain, right foot [M79.674, G89.29], Complex regional pain syndrome type II of right lower limb [G57.71] Pain Management Comment on above: Chronic toe pain, ri ght foot [M79.674, G89.29], Complex regional pain syndrome type II of right lower limb [G57.71] Start: 10-09-2023 Advance Directive Discussion Advance Directive Discussion [facility] Start: 10-09-2023 Behavioral Health Screening Behavioral Health Screening [facility] Start: 06-09-2023 Covid-19 Vaccine ( season) Covid-19 Vaccine ( season) [facility] Start: 2014 Pneumococcal Vaccine : 65+ (1 of 1 - PCV) Pneumococcal Vaccine: 65+ (1 of 1 - PCV) [facility] Start: 2009 RSV Vaccine (1 - 1-d ose 60+ series) RSV Vaccine (1 - 1-dose 60+ series) [facility] Start: 1999 Shingrix Vaccine (1 of 2) Shingrix Vaccine (1 of 2) [facility] Start: 1994 Diabetes Screening Diabetes Screenin g [facility] Start: 1994 Screening for malign ant neoplasm of colon [facility] Start: 1984 Lipid [facility] Start: 1968 Urine microalbumin profile DTaP,Tdap,Td Vaccine (1 - Tdap) [facility] Start: 1967 Annual PCP Team Technical Operations Specialist hai Disease Visit Annual PCP Team Chronic Disease Visit [facility] Start: 1967 Anxiety Screening Anxiety Screening [facility] Start: 1967 Depression Screening Depression Scre ening [facility] Start: 1967 Hepatitis B surface antibody level LDL Cholesterol [facility] Start: 1967 Hepatitis C screening Hepatitis C Sc reening [facility] Start: 1959 Diabetic foot examination Diabetic Foot Exam [facility] Start: 1959 Glaucoma screening Dilated Retinal E xam [facility] Start: 1959 Hepatitis B screening Urine Albumin:Creatinine Ratio [facility] Start: 1955 Pneumococcal Vaccine : 65+ (1 of 2 - PCV) Pneumococcal Vaccine: 65+ (1 of 2 - PCV) [facility] Start: 1954 Hemoglobin A1c measurement HbA1C [facility] Immunizations Immunization Date Immunization Notes Care Provider Fa cility 12-30-2020 COVID-19 Vaccine Mod gino - Documentation Purposes Only Morgan Kunz Other [facility] 12-02-2020 COVID-19 Vaccine Mod gino - Documentation Purposes Only Morgan Kunz Other [facility] Payers Date Payer Category Payer Unknown 2017 Self-pay [id number] 2017 Unknown [id number] 2012 Medicare 1959 Medicare [id number] 2.1 [id number] 1959 Unknown [id number] 2. 16.840.1.650303.19 1949 Unknown [id number] 2.16.84 0.1.021966.3.579.2.593 1949 Unknown [id number] 2.16.84 0.1.880371.3.579.2.593 1949 Unknown [id number] 2.16.84 0.1.670709.3.579.2.593 1949 Unknown [id number] 2.16.84 0.1.092533.3.579.2.593 1949 Unknown [id number] 2.16.84 0.1.271047.3.579.2.593 1949 Unknown [id number] 2.16.84 0.1.303860.3.579.2.593 1949 Unknown [id number] 2.16.84 0.1.986871.3.579.2.593 1949 Unknown [id number] 2.16.84 0.1.048011.3.579.2.593 1949 Unknown [id number] 2.16.84 0.1.902839.3.579.2.593 1949 Unknown [id number] 2.16.84 0.1.023463.3.579.2.593 1949 Unknown [id number] 2.16.84 0.1.394154.3.579.2.593 1949 Unknown [id number] 2.16.84 0.1.280553.3.579.2.593 1949 Unknown [id number] 2.16. 840.1.248472.3.579.2.196 1949 Unknown [id number] 2.16. 840.1.707592.3.579.2.196 1949 Unknown [id number] 2.16. 840.1.558017.3.579.2.196 1949 Unknown [id number] 2.16. 840.1.563415.3.579.2.196 1949 Unknown [id number] 2.16. 840.1.404947.3.579.2.196 1949 Unknown [id number] 2.16. 840.1.208632.3.579.2.196 1949 Unknown [id number] 2.16.8 40.1.539369.3.579.2.72 1949 Unknown [id number] 2.16.8 40.1.639929.3.579.2. 1949 Unknown [id number] 2.16.8 40.1.475616.3.579.2. 1949 Unknown [id number] 2.16.8 40.1.972118.3.579.2. 1949 Unknown [id number] 2.16.8 40.1.786986.3.579.2. 1949 Unknown [id number] 2.16.8 40.1.963231.3.579.2. 1949 Unknown [id number] 2.16.8 40.1.127567.3.579.2. 1949 Unknown [id number] 2.16.8 40.1.534969.3.579.2. 1949 Unknown [id number] 2.16.8 40.1.196720.3.579.2. 1949 Unknown [id number] 2.16.8 40.1.878790.3.579.2. 1949 Unknown [id number] 2.16.8 40.1.150742.3.579.2. 1949 Unknown [id number] 2.16.8 40.1.798003.3.579.2. 1949 Unknown [id number] 2.16.8 40.1.163020.3.579.2. 1949 Unknown [id number] 2.16.8 40.1.887402.3.579.2.727 1949 Unknown [id number] 2.16.8 40.1.645888.3.579.2.727 1949 Unknown [id number] 2.16.8 40.1.059505.3.579.2.727 1949 Unknown [id number] 2.16.8 40.1.522143.3.579.2. 1949 Unknown [id number] 2.16.8 40.1.016685.3.579.2. 1949 Unknown [id number] 2.16.8 40.1.956008.3.579.2. 1949 Unknown [id number] 2.16.8 40.1.470118.3.579.2. 1949 Unknown [id number] 2.16.8 40.1.605235.3.579.2. 1949 Unknown [id number] 2.16.8 40.1.862787.3.579.2. 1949 Unknown [id number] 2.16.8 40.1.923191.3.579.2. 1949 Unknown [id number] 2.16.84 0.1.395898.3.579.2.125 1949 Unknown [id number] 2.16.84 0.1.177928.3.579.2.1258 1949 Unknown [id number] 2.16.84 0.1.489791.3.579.2.125 1949 Unknown [id number] 2.16.84 0.1.659209.3.579.2.1258 1949 Unknown [id number] 2.16.84 0.1.954297.3.579.2.1258 1949 Unknown [id number] 2.16.84 0.1.661299.3.579.2.1258 1949 Unknown [id number] 2.16.84 0.1.251436.3.579.2.1259 1949 Unknown [id number] 2.16.84 0.1.657922.3.579.2.9 1949 Unknown [id number] 2.16.84 0.1.281919.3.579.2.1259 1949 Unknown [id number] 2.16.84 0.1.503269.3.579.2.125 1949 Unknown [id number] 2.16.84 0.1.165768.3.579.2.1258 1949 Unknown [id number] 2.16.84 0.1.409512.3.579.2.1259 1949 Unknown [id number] 2.16.84 0.1.688552.3.579.2.1258 1949 Unknown [id number] 2.16.840 .1.885560.3.579.2.1259 Unknown [employer] [id number] Unknown [id number] 2.16.8 40.1.866103.3.579.2.531 Unknown [id number] 2.16.8 40.1.738793.3.579.2.531 Unknown [id number] 2.16.8 40.1.800505.3.579.2.531 Social History Date Type Detail Facility Unknown if ever smoked [employer] Other Start: 02-05-2024 End: 04-17-2024 Sex Assigned At [facility] Start: 1950 Sex Assigned At Male F [facility] Start: 07-09-2018 End: 02-29-2024 Tobacco smoking status WVIS Never smoked tobacco (finding) [facility] Tobacco smoking status WVIS Tobacco smoking consumption unknown [facility] Start: 02-05-2024 End: 04-17-2024 History of Social function [facility] National Score (1-100), lower number is lower risk 67 [facility] Start: 1950 Sex Assigned At Not on file C [facility] Start: 02-29-2024 Tobacco use and exposure Smokeless tobacco non-user [facility] Start: 02-29-2024 Alcohol intake Ex-drinker (finding) [facility] Medical Equipment Procedure Code Equipment Code Equipment Original Text Equipment Identifier Dates ESWL, one kidney STENT CONTOUR 4 .8FR X 22-30CM FDA Start: 06-07-2018 ESWL, one kidney STENT CONTOUR 4 .8FR X 22-30CM FDA Start: 06-07-2018 Start: 12-11-2017 Lead Axium Slimt ip 1mm 5mm Space 50mm Neurostimulator Front Load 4 [id number] Start: 04-03-2024 Clinical Notes 07-21-2021 to 06-26-2024 Britney Rodriguez, PhD - 06/07/2024 12:22 PM Chiqui Irwin MD - 04/24/2024 9:27 AM Parish Moscoso MD - 04/24/2024 9:02 AM EDTPatient InstructionsPatient Instructions Note Date & Type Note Facility 06-26-2024 Note Cardiovascular Medic [facility] SUBJECTIVE Chief Complaint Patient presents with Coronary Artery Disease Hypertension Dong Whitmore is a 73 y.o. male here for follow-up. HPI PMHx: hypertension, hyperlipidemia, and coronary artery disease (previous PCI to LCx and RCA, - 2012) 06/26/2024 He has been having trouble with his right foot. He had his middle toe amputated last week. He has a couple other toes amputated and some partial toes amputated. This is done by podiatry. He's been dealing with this nerve pain for the past 15 years. He is seeing pain management. He has ongoing right leg/foot swelling. He was diagnosed with lymphedema. He follows with endocrinology in [place]. He has MILLER - this is unchanged. He admits to not being very active due to his foot pain. Denies CP, orthopnea, PND, dizziness/LH, palpitations. 11/25/22 He feels like he is having [...] at a weightloss program at [facility]. He is seeing the publications editor. 01/23/2023 He is down about 10lbs since [...] Obesity Sleep apnea Type 2 diabetes mellitus ([facility]) Complex regional pain syndrome type II of right lower limb Coronary arteriosclerosis in [place] artery Current use of insulin ([facility]) Dietary counseling and surveillance Past Medical History: Diagnosis Date CAD (coronary artery disease) DM type 2 (diabetes mellitus, type 2) ([facility]) HLD (hyperlipidemia) HTN (hypertension) Neuropathy ULISES (obstructive sleep apnea) Family History Problem Relation Name Age of Onset Coronary artery disease Other Diabetes Other Social History Tobacco Use Smoking status: Never Smokeless tobacco: Never Substance Use Topics Alcohol use: Not Currently Allergies Allergen Reactions Cefuroxime Celecoxib Diflunisal Metformin Naproxen Nsaids (Non-Steroidal Anti-Inflammatory Drug) Rofecoxib Sulindac Victoza 2-Gee [Liraglutide] ROS Cardiovascular: Positive for leg swelling (RLE). Musculoskeletal: Positive for joint pain. All other systems reviewed and are negative. OBJECTIVE Visit Vitals BP 122/72 (BP Location: Right arm, Patient Position: Sitting) Pulse 58 Ht 1.727 m (5' 8 ) Wt 122 kg (269 lb) SpO2 96% BMI 40.90 kg/m??? Smoking Status Never BSA [...] mouth in the morning., Disp: , Rfl: memantine (Namenda) 10 mg tablet, Take 10 mg by mouth in the morning., Disp: [...] (Effexor) 37.5 mg tablet, venlafaxine 37.5 mg (more content not included)... [facility] 06-26-2024 Note Patient here for 1 y ear follow up CAD, hypertension, and hyperlipidemia. Had lipid panel this past December. Had foot surgery last week. Denies chest pain, SOB, palpitations, and lightheadedness/syncope. 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 Review of Systems Cardiovascular: Positive for leg swelling (RLE). Musculoskeletal: Positive for joint pain. All other systems reviewed and are negative. [facility] 06-07-2024 History of Present illness Narrative [facility] Behavioral Medicine Group Session I have communicated my name and active licensure. The patient's identity and physical location were verified at the time of this visit. Either the patient or their legal service liaison representative has been informed of the risks and benefits of -- and alternatives to -- treatment through virtual visit and consents to proceed with the session remotely. The patient e-signed the Informed Consent for Psychological Evaluation & Care Form, and the [facility] health care insurance benefits, fees for service, emergency procedures, and the limits of confidentiality that may pertain with any given case were discussed with the patient. The patient was given a copy of the consent form on [employer]. The patient consented to a virtual visit and their location was confirmed. Patient location: [facility] confirmed Patient Name: Dong Whitmore CC#: [id number] Date of service: June 07, 2024 Subjective: Patient participated in a cognitive and behavioral group focused on coping with chronic pain. The goal of the following treatment is to improve the patient's health and well-being via cognitive, behavioral, social and/or psychophysiological procedures designed to ameliorate pain related problems. Group members received an orientation to the group, including group rules, expectations and the limits of confidentiality. Patients were reminded of the limits of confidentiality in the group setting and agreed to hold in confidence all matters discussed in the group. Group materials were distributed including an assessment form to evaluate Pain Catastrophizing and to target negative thought patterns related to pain. Additional materials included a personalized relapse prevention plan and goal setting sheet. Group session included psychoeducation related to the pain and stress response, experiential practice/learning of relaxation technique of deep breathing, orientation to the cognitive and behavioral model of pain and skill building (reframing negative thoughts, de-escalating negative emotions and identifying soothing actions). Objective: Affect is Appropriate. The patient paid fair attention during the group and did not verbalize understanding of the material presented. Medications: Current Outpatient Medications Medication Sig memantine (NAMENDA) 10 mg tablet Take 1 tablet by mouth once daily. aspirin, enteric coated (ASPIRIN, ENTERIC COATED) 81 [...] No current facility-administered medications for this visit. A: (F43.21) Adjustment disorder with depressed mood (primary encounter diagnosis) (G57.71) Complex regional pain syndrome type II of right lower limb (M79.674, G89.29) Chronic toe pain, right foot Future goals include: Implement plan for empowered relief P: Can follow up with our center as needed Per DEVEN Romero initial evaluation: Patient will complete T4S, then decide whether he wants to explore additional pain management education Britney Rodriguez, PhD [phone] documented in this encounter [facility] 05-23-2024 Note Patient Education Infectious Disease Cellulitis, [...] these instructions at home: Medicines ? Take oujf-xcx-apyhnpd and prescription medicines only as told by [...] provider. Document Revised: 07/07/2022 Document Reviewed: 07/07/2022 [employer] Patient Education ? 2022 [place]. [facility] 05-13-2024 Note Patient Education Endocrinology [...] changing your diet, or holidays. ? New umhy-dmk-ffagsen or prescription medicines. ? Illness, stress, or [...] sure you disc (more content not included)... [facility] 05-06-2024 Note HNO ID: [id number] Author: MORGAN TRINIDAD, Therapist Service: ? Author Type: Therapist Type: Progress Notes Filed: 05/07/2024 08:20 Note Text: THE [facility] Psychological Evaluation May 06, 2024 Dong SIU#: [id number] I have communicated my name and active licensure. The patient's identity and physical location were verified at the time of this visit. Either the patient or their legal service liaison representative has been informed of the risks and benefits of -- and alternatives to -- treatment through virtual visit and consents to proceed with the session remotely. The patient e-signed the Informed Consent for Psychological Evaluation AND Care Form, and the [facility] health care insurance benefits, fees for service, emergency procedures, and the limits of confidentiality that may pertain with any given case were discussed with the patient. The patient was given a copy of the consent form on [employer]. The patient consented to a virtual visit and their location was confirmed. Patient location: [place], [place] CPT Code: 4448584 Virtual Psych Diagnotic Eval Appointment Start: 9 AM This 73 year old retired for 15 years (he was having some medical problems, but they offered an early skilled nursing package that was attractive at the time) male lives with his in [place], [place]. 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 He was referred by Chiqui Robles MD for psychological evaluation in the context of chronic pain. This consultation was shared with the referral source via the [facility] electronic medical record. He believes the reason [...] needed. pioglitazone (ACT (more content not included)... [facility] 04-24-2024 Note HNO ID: [id number] Author: CHIQUI ROBLES MD Service: ? Author Type: Physician Type: Progress Notes Filed: 04/24/2024 11:26 Note Text: [facility] STAFF PHYSICIAN NOTE OF PERSONAL INVOLVEMENT IN CARE IMPRESSION: Complex regional pain syndrome Adjustment Disorder Tried multiple injections, procedures, surgeries. No benefit Tried SCS and recently DRG without success. Discussed ketamine PLAN: Ketamine infusions Consider scrambler therapy Psych psychology Memantine 5mg Psychotherapy Add-on Progress Note Due to medical condition and comorbid psychological and behavioral concerns - psychotherapy was utilized during the visit. Vkeu-kt-aeqb time: 85266 (16-37 mins) actual time spend in psychotherapy [...] which included preparing to see the patient, bcql-hg-riaz patient care, completing clinical documentation, performing a medically appropriate examination, and counseling and educating the patient/family/caregiver. As noted, the patient's clinical situation is complex and serious with significant comorbidity of pain and functional limitations. This requires higher levels of time, intensity, and expense with longitudinal care and support. STAFF PHYSICIAN:: Chiqui Robles MD DATE of SERVICE: 04/24/2024 [facility] 04-24-2024 History of Present illness Narrative [facility] STAFF PHYSICIAN NOTE OF PERSONAL INVOLVEMENT IN CARE IMPRESSION: Complex regional pain syndrome Adjustment Disorder Tried multiple injections, procedures, surgeries. No benefit Tried SCS and recently DRG without success. Discussed ketamine PLAN: Ketamine infusions Consider scrambler therapy Psych psychology Memantine 5mg Psychotherapy Add-on Progress Note Due to medical condition and comorbid psychological and behavioral concerns - psychotherapy was utilized during the visit. Mfrz-rw-tzso time: 16726 (16-37 mins) actual time spend in psychotherapy [...] which included preparing to see the patient, napa-sz-wvlk patient care, completing clinical documentation, performing a medically appropriate examination, and counseling and educating the patient/family/caregiver. As noted, the patient's clinical situation is complex and serious with significant comorbidity of pain and functional limitations. This requires higher levels of time, intensity, and expense with longitudinal care and support. STAFF PHYSICIAN:: Chiqui Robles MD DATE of SERVICE: 04/24/2024 [facility] Neurological Cooter April 24, 2024 This is a face [...] Parish Tucker MD documented in this encounter [facility] 04-24-2024 Note HNO ID: [id number] Author: PARISH RIOS MD Service: ? Author Type: Resident Type: Progress Notes Filed: 04/24/2024 11:26 Note Text: [facility] Neurological Cooter April 24, 2024 This is a face [...] Memantine Pain psychology consult Parish Tucker MD [facility] 03-21-2024 Telephone encounter Note Spoke with patient and notified him of provider recommendations. Verbalized understanding. Emilee So RN [facility] 03-21-2024 Miscellaneous Notes Spoke with patient and notified him of provider recommendations. Verbalized understanding. Emilee So RN Ok per Dr Araujo to proceed with trial - still recommending to keep appt with ID Spoke with patient at request of oral surgery physician as patient has questions about referral to infectious disease. Patient states that he spoke with his PCP, Dr. Hickman ([phone]) who spoke with Dr. Vega in Infectious disease at [facility]. Dr. Hickman ordered lab work at the [...] Emilee So RN documented in this encounter [facility] 03-21-2024 Telephone encounter Note Ok per Dr Araujo to proceed with trial - still recommending to keep appt with ID [facility] Work Phone: 06-11-2024 Telephone encounter Note Spoke with patient at request of oral surgery physician as patient has questions about referral to infectious disease. Patient states that he spoke with his PCP, Dr. Hickman ([phone]) who spoke with Dr. Vega in Infectious disease at [facility]. Dr. Hickman ordered lab work at the [...] move forward as planned. Emilee So RN [facility] 03-15-2024 Note Microbiology PROCEDURE: Blood Culture Charcoal [R1] SOURCE: Blood BODY SITE: COLLECTED DATE/TIME: 03/08/2024 08:30 EDT RECEIVED DATE/TIME: 03/08/2024 09:02 EDT START DATE/TIME: 03/08/2024 09:02 EDT FREE TEXT SOURCE: michel Hickman MD, Haider Hickman MD, Haider Bee FINAL REPORTS Final Report [] Verified Date/Time: 03/15/2024 12:00 EDT No growth at 7 days. Performing Locations R1: This test was performed at: [facility], [address] [place] [address], [facility] , , [facility] Comment on above: Performed By: #### 1 [id number] #### [facility] [address] [place] [id number] 03-15-2024 Note Microbiology PROCEDURE: Blood Culture Charcoal [...] Locations R1: This test was performed at: [facility], [address] [place] [address], [id number] , [place], [facility] Comment on above: Performed By: #### 1 [id number] #### [facility] [address] [place] [id number] 02-29-2024 Instructions Senthil Giraldo MD - 02/29/2024 1:38 PM EDT - Right DRG trial - Obtain psychological evaluation report (patient reports he just had this done ~two months ago) and send to [facility] - ID consult - Rule out infectious risk with due to the dermatitis. - Follow up: Return to clinic for the above procedure documented in this encounter [facility] 02-29-2024 Note HNO ID: [id number] Author: HERBERTH ARAUJO MD, PhD Service: ? Author Type: Physician Type: Progress Notes Filed: 03/18/2024 19:05 Note Text: [facility] Pain Management Department New Patient Consultation Referring Physician: SELF Chief Complaint: Right third toe pain SUBJECTIVE: Dong Whitmore is a 73 year old male with a pertinent past medical history of diabetes who presents to [facility] for the evaluation of right third toe pain. 15-year history of right third toe pain. He notes that over this time the pain has become increasingly severe has caused him significant discomfort and suffering. He has been to many specialists in the [facility] area-over the course of the past 15 [...] depression 10-14 Mo (more content not included)... [facility] 02-29-2024 History of Present illness Narrative Images from the original note were not included. [facility] Pain Management Department New Patient Consultation Referring Physician: SELF Chief Complaint: Right third toe pain SUBJECTIVE: Dong Whitmore is a 73 year old male with a pertinent past medical history of diabetes who presents to [facility] for the evaluation of right third toe pain. 15-year history of right third toe pain. He notes that over this time the pain has become increasingly severe has caused him significant discomfort and suffering. He has been to many specialists in the [facility] area-over the course of the past 15 [...] disturbance, mood disorder and recent psychosocial stressors. HEMATOLOGIC/LYMPHATIC/IMMUNOLOGIC : Negative for prolonged bleeding, bruising easily or [...] history of diabetes who presents to [facility] for the evaluation of right third toe pain. He describes a 15-year history of right third toe pain. He notes that over this time the pain has become increasingly severe has caused him significant discomfort and suffering. He has been to many specialists in the [place] area-over the course of the past 15 [...] done ~two months ago) and send to [facility] - ID consult - [...] Araujo MD, PhD documented in this encounter [facility] 02-06-2024 Telephone encounter Note Called and spoke to patient. Gave him this message from Dr. Singletary: I'd suggest seeking an appointment with the following doctors who perform DRG implantation: Dr. Carlisle, Dr. Araujo, Dr. Dan, Dr. Cortés Patient voiced understanding. [facility] 02-06-2024 Miscellaneous Notes Called and spoke to [...] giving him the number to schedule at [facility] to discuss DRG? I'd suggest seeking an appointment with the following doctors who perform DRG implantation: Dr. Carlisle, Dr. Araujo, Dr. Dan, Dr. Moo Mcwilliams and Dr. Kamara may do DRG - I'm not sure. Thanks Lela! ----- Message ----- From: Livia Lester PA-C Sent: 02/05/2024 2:07 PM EDT To: Francoise Singletary MD No one on this side of [facility] that I know of does DRG so, we also send to [facility] I would just have Lela call the patient and tell him this is not something you do and tell him he needs to be seen a Main ----- Message ----- From: Francoise Singletary MD Sent: 02/05/2024 1:45 PM EDT To: TRANG Lindsey! He was supposed to get referred for consideration of DRG - the only people I know who do DRG are at [facility]. How do we refer him there? From what I remember, Truman Melendez Costandi, and Moo do DRG - do you know of anyone else? documented in this encounter [facility] 02-06-2024 Telephone encounter Note ----- Message from Francoise Singletary MD sent at 02/05/2024 3:12 PM EDT ----- Do you mind calling him and giving him the number to schedule at [facility] to discuss DRG? I'd suggest seeking an appointment with the following doctors who perform DRG implantation: Dr. Carlisle, Dr. Araujo, Dr. Dan, Dr. Moo Mcwilliams and Dr. Kamara may do DRG - I'm not sure. Thanks Lela! ----- Message ----- From: Livia Lester PA-C Sent: 02/05/2024 2:07 PM EDT To: Francoise Singletary MD No one on this side of [facility] specialty center at [facility] that I know of does DRG so, we also send to [facility] I would just have Ella call the patient and tell him this is not something you do and tell him he needs to be seen a Main ----- Message ----- From: Francoise Singletary MD Sent: 02/05/2024 1:45 PM EDT To: TRANG Lindsey! He was supposed to get referred for consideration of DRG - the only people I know who do DRG are at [facility]. How do we refer him there? From what I remember, Truman Melendez Costandi, and Moo do DRG - do you know of anyone else? [facility] 02-05-2024 Instructions Francoise Singletary MD - 02/05/2024 1:01 PM EDT Thank you for taking the time to come and see me today! Please schedule an appointment for: [facility] Consult Please follow up with [facility] Neurology and Podiatry Please send all of your Podiatry, Neurology, and Pain Management records to us I will refer you to a provider who performs DRG to discuss this Please come back to see me as needed documented in this encounter [facility] 02-05-2024 History of Present illness Narrative Images from the original note were not included. [facility] Pain Management Department Consultation Date: February 02, [...] The patient has seen other pain providers. [facility] Neurology OV 02/01/22 Assessment and Plan 71 [...] has been to many specialists in the [facility] area-over the course of the past 15 [...] I noted before, he appears today while [facility] was down, and I not have access [...] will refer him to a doctor at [facility] for consideration of DRG and to discuss the risks, benefits, alternatives. Diagnostics/Referrals: -Chronic Pain Recovery Program referral Referral to [facility] podiatry, neurology for second opinions 2. Pharmaceuticals: [...] Marital Status: Unknown Medical Decision Making [facility] EMR was reviewed during the visit including: [...] the shared EMR documented in this encounter [facility] 02-05-2024 Note HNO ID: [id number] Author: FRANCOISE SINGLETARY MD Service: ? Author Type: Physician Type: Progress Notes Filed: 02/05/2024 15:14 Note Text: [facility] Pain Management Department Consultation Date: February 02, [...] The patient has seen other pain providers. [facility] Neurology OV 02/01/22 Assessment and Plan 71 [...] has been to many specialists in the [place] area-over (more content not included)... [facility] 01-01-2024 Note [id number] [facility] 09-11-2023 Evaluation note Encounter Date [...] 6.9% 2. Blood glucose levels according to [employer] 3 cgm download 08/29/23-09/11/23 : Avg glucose [...] Current use of insulin (ICD-10 - Z79.4) [employer] Other 11-16-2023 Evaluation note* Encounter Date Diagnosis Assessment Notes Treatment Notes Treatment Clinical Notes Aug, Cellulitis of right lower extremity (ICD-10 - L03.115) I did thoroughly review all the studies from [place]. I do not have any images to [...] include weight loss exercise and compression therapy. [employer] Other 09-01-2023 Evaluation note* Encounter Date Diagnosis Assessment Notes Treatment Notes Treatment Clinical Notes Jun, Type 2 diabetes mellitus with diabetic chronic kidney disease (ICD-10 - E11.22) Dong and his came in today for Freestyle baylee 3 training and refresher on his [...] He was given a no cut Grif Tr[employer] to try and a brochure to buy them online. We discussed the Novolog pen and that he is to use it if his BG before a meal is greater than 150. He was able to dial the pen and knows how to put the pen needle on and deliver the dose. 30 minutes were spent educating the patient by Kamlesh Sparrow RN, [facility]. [employer] Other 05-30-2023 Evaluation note* Encounter Date Diagnosis [...] February, Metabolic syndrome X (ICD-10 - E88.81) [employer] Other 05-09-2023 Evaluation note* Encounter Date Diagnosis [...] last visit, continue with weight loss efforts [employer] Other 04-14-2023 Evaluation note* Encounter Date Diagnosis Assessment Notes [...] the following goals: Add flavors to vegetables [employer] Other 03-30-2023 Evaluation note* Encounter Date Diagnosis Assessment Notes [...] Dec, Metabolic syndrome X (ICD-10 - E88.81) [employer] Other 03-23-2023 NoteCARDIAC STRESS TEST Requesting Physician: Procedure Date:12/29/2022 PERFORMING PHYSICIAN: Tata Brennan M.D. INDICATION: Dyspnea on exertion. STRESS TEST TYPE: Lexiscan Resting EKG: Abnormal, Resting heart rate: 82 Peak heart rate: 92 Peak maximal heart rate: 63% Resting blood pressure: 138/70 Peak blood pressure: ST changes: None. Symptoms: None. Arrhythmias: None. CONCLUSION: 1. No definite EKG evidence of ischemia. 2. Please refer to separately interpreted and reported nuclear myocardial perfusion imaging.[id number]* Encounter Date Diagnosis Assessment Notes [...] following goals: 1) Increase vegetables at dinner [employer] Other 02-14-2023 Evaluation note* Encounter Date Diagnosis [...] him and his by Kamlesh Sparrow RN, [facility]. Reviewed cgm download 11/08/22-11/20/22: Avg glucose 171. >250-1%, >180-30%, 70-180-69%, <70-0%, <540%. CV 15..2%. 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 6. Prescriptions: Acarbose sent to [facility]. Sample baylee 2 cgm given today. [...] Baylee 2 sensor and an office owned, [employer]. His phone was not compatible with Baylee 2 or 3, or Dexcom G6. He previously wore the Baylee 14 day system and did not need training on applying the device. I did train him on the use of the reader. He was vgiven samples of Grif Infant Babysitter and Skin Tac to help keep the device in place. 45 minutes were spent educating the patient by Kamlesh Sparrow RN, [facility]. [employer] Other 01-10-2023 Evaluation note* Encounter Date Diagnosis [...] program2) Try roasted cronin peppers (recipe provided) [employer] Other 11-11-2022 NotePROCEDURE: XR FOOT RT MIN [...] nuts; buys $75 of nuts when at [facility] -At night either eats nuts or cheese + crackers -Only likes zimbabwean cheese,-Recommended 15g or less for snacks; so [...] likes those-Increase vegetable intake-Vegetables: corn, peas, carrots [employer] Other 10-19-2022 Evaluation note* Encounter Date Diagnosis [...] referral to Dr. Kelley for weight management [facility] Other 08-31-2022 Evaluation note* Encounter Date Diagnosis [...] and his would cook it for him [employer] Other 07-14-2022 Evaluation note* Encounter Date Diagnosis [...] improved glycemia. Pt would likek referral to publications editor. Note pt has intolerance to glp1 class [...] of glucose/bp control to prevent further nephropathy [employer] Other 01-13-2022 Evaluation note* Encounter Date Diagnosis [...] medication issues. 6. Prescriptions: Pioglitazone sent to [facility]. Oct, Hyperlipidemia, unspecified hyperlipidemia type (ICD-10 - [...] brochure given today. Recommend call if interested. [employer] Other 10-13-2021 Evaluation note* Encounter Date Diagnosis Assessment Notes Treatment Notes Treatment Clinical Notes Jul, SANTANA (nonalcoholic steatohepatitis) (ICD-10 - K75.81) Jul, Other [facility] INDICATED ABOVE F/U HERE PRN [employer] Other Evaluation noteNo [facility]ort [facility] Other Evaluation noteNo assessment information available [facility] Work Phone: Evaluation note* Diagnosis Chronic toe pain, right foot- Primary 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, not stated as uncontrolled Class 3 severe obesity with serious comorbidity and body mass index (BMI) of 40.0 to 44.9 in adult, unspecified obesity type (HCC) [facility] Diagnosis Chronic toe pain, right foot- [...] right lower limb documented in this encounter [facility] note* Diagnosis Adjustment disorder with depressed mood- Primary Complex regional pain syndrome type II of right lower limb Chronic toe pain, right foot Class 3 severe obesity with serious comorbidity and body mass index (BMI) of 40.0 to 44.9 in adult, unspecified obesity type (HCC) documented in this encounter [facility] note* Diagnosis Adjustment disorder with depressed mood- Primary Complex regional pain syndrome type II of right lower limb Chronic toe pain, right foot documented in this encounter [facility] note* Diagnosis Adjustment disorder with depressed mood- Primary Complex regional pain syndrome type II of right lower limb Chronic toe pain, right foot documented in this encounter [facility] general Narrative - Reported* Type Description Date [...] first metatarsal 11-16-18 Hospitalization History see above [employer] Other [employer] general Narrative - Reported* Type Description Date [...] Foot Surgery 10/27/2021 Hospitalization History see above [employer] Other [employer] general Narrative - Reported* Type Description Date [...] removed Surgical History heart surgery and 03-28 Surgical History prostate Surgical History AMPUTATION second me tatarsal and partial right first metatarsal 11-16-18 Surgical History Foot Surgery 10/27/2021 Hospitalization History see above [employer] Other Summary Purpose Family History No Family [...] Referral Specialty Diagnoses / Procedures Referred By Contpaddy t Referred To Contact Diagnoses Complex regional pain syndrome type II of right lower limb Chronic toe pain, right foot Class 3 severe obesity with serious comorbidity and body mass index (BMI) of 40.0 to 44.9 in adult, unspecified obesity type (HCC) Procedures PROVIDER ORDERED FOLLOW UP OFFICE/OUTPATIENT [facility] MDM 60 MINUTES Chiqui Robles MD [address] [place] [address] Referral ID Status Reason Start Date Expiration Date Visits Requested Visits Authorized [id number] Authorized PCP Requested Referral 06/25/2024 04/24/2025 1 1 Specialty Diagnoses / Procedures Referred By Contpaddy t Referred To Contact Infectious Diseases Diagnoses Dermatitis of lower extremity Procedures CONSULT TO INFECTIOUS DISEASES OFFICE/OUTPATIENT [facility] MDM 60 MINUTES Herberth Araujo MD, PhD [address] [place] [address] Referral ID Status Reason Start Date Expiration Date Visits Requested Visits Authorized [id number] Authorized PCP Requested Referral 02/29/2024 02/28/2025 1 1 Specialty Diagnoses / Procedures Referred By Contac t Referred To Contact Podiatry Diagnoses Chronic toe pain, right foot Painful diabetic neuropathy (HCC) Procedures CONSULT TO PODIATRY OFFICE/OUTPATIENT [facility] 60 MINUTES Francoise Singletary MD [address] [place] [address] Referral ID Status Reason Start Date Expiration Date Visits Requested Visits Authorized [id number] Authorized PCP Requested Referral 02/05/2024 02/04/2025 1 1 Specialty Diagnoses / Procedures Referred By Contac t Referred To Contact Neurology Diagnoses Chronic toe pain, right foot Painful diabetic neuropathy (HCC) Procedures CONSULT TO NEUROLOGY OFFICE/OUTPATIENT [facility] 60 MINUTES Francoise Singletary MD [address] [place] [address] Referral ID Status Reason Start Date Expiration Date Visits Requested Visits Authorized [id number] Authorized PCP Requested Referral 02/05/2024 02/04/2025 1 1 Specialty Diagnoses / Procedures Referred By Contac t Referred To [facility] Spine Cooter Diagnoses Chronic toe pain, right foot Painful diabetic neuropathy (HCC) Procedures CONSULT TO [facility] FOR PAIN RECOVERY (CHRONIC PAIN) OFFICE/OUTPATIENT [facility] 60 MINUTES Francoise Singletary MD [address] [place] [address] Referral ID Status Reason Start Date Expiration Date Visits Requested Visits Authorized [id number] Pending Review PCP Requested Referral 02/05/2024 02/04/2025 1 1 Additional Source Comments REASON FOR VISIT (unrecogniz ed section and content) Reason Comments Consult Rt foot Reason Comments Established Patient Medication Update Reason Comments Nurse Triage Call Reason Comments New Patient Specialty Diagnoses / Procedures Referred By Contac t Referred To [facility] Spine Cooter Diagnoses Complex regional pain syndrome type II of right lower limb Chronic toe pain, right foot Class 3 severe obesity with serious comorbidity and body mass index (BMI) of 40.0 to 44.9 in adult, unspecified obesity type (HCC) Procedures CONSULT TO [facility] FOR PAIN RECOVERY (CHRONIC PAIN) OFFICE/OUTPATIENT [facility] 60 MINUTES Herberth Araujo MD, PhD [address] [place] [address] Referral ID Status Reason Start Date Expiration Date Visits Requested Visits Authorized [id number] Pending Review PCP Requested Referral 04/03/2024 04/03/2025 1 1 Reason Comments Consult Reason Comments trek for success (unrecognized sect ion and content) No Status Records FoundNo Status Records FoundNo Status Records FoundNo Status Records FoundNo Status Records FoundNo Status Records FoundNo Status Records FoundNo Status Records FoundNo Status Records FoundNo Status Records FoundNo Status Records FoundNo Status Records FoundNo Status Records Found INFORMATION SOURCE (unrecogn ized section and content) DATE CREATED AUTHOR 02/20/2023 [facility] DATE CREATED AUTHOR AUTHOR'S ORGANIZ ATION 11/22/2023 [facility] DATE CREATED AUTHOR AUTHOR'S ORGANIZ ATION 12/15/2023 [facility] DATE CREATED AUTHOR AUTHOR'S ORGANIZ ATION [facility]/09/2024 [facility] DATE CREATED AUTHOR AUTHOR'S ORGANIZ ATION 03/16/2024 [facility] DATE CREATED AUTHOR AUTHOR'S ORGANIZ ATION 05/09/2024 [facility] DATE CREATED AUTHOR AUTHOR'S ORGANIZ ATION 06/02/2024 [facility] DATE CREATED AUTHOR AUTHOR'S ORGANIZ ATION 06/21/2024 [facility] DATE CREATED AUTHOR AUTHOR'S ORGANIZ ATION 06/28/2024 [facility] DATE CREATED AUTHOR AUTHOR'S ORGANIZ ATION 07/02/[address] [facility] dical Specialists EPIC Care Teams (unrecognized sec tion and content) [...] September 11, 2023 End: September 11, 2023 Library Acquisitions Technician Relationship Specialty Start Date End Date Miguelangel Mac MD [address] [place] [address] [address] [place] [address] Referring Pain Management 01/29/24 Library Acquisitions Technician Relationship Specialty Start Date End Date Miguelangel Mac MD [address] [place] [address] Referring Pain Management 01/29/24 Library Acquisitions Technician Relationship Specialty Start Date End Date Miguelangel Mac MD [address] [place] [address] Referring Pain Management 01/29/24 Library Acquisitions Technician Relationship Specialty Start Date End Date Miguelangel Mac MD [address] [place] [address] Referring Pain Management 01/29/24 Library Acquisitions Technician Relationship Specialty Start Date End Date Haider Hickman MD [address] [place] [id number] PCP - General Family Medicine 03/26/24 Miguelangel Mac MD [address] [place] [address] [address] [place] [address] Referring Pain Management 01/29/24 Library Acquisitions Technician Relationship Specialty Start Date End Date Haider Hickman MD [address] [place] [id number] PCP - General Family Medicine 03/26/24 Miguelangel Mac MD [address] [place] [address] Referring Pain Management 01/29/24 Library Acquisitions Technician Relationship Specialty Start Date End Date Haider Hickman MD [address] [place] [id number] PCP - General Family Medicine 03/26/24 Miguelangel Mac MD [address] [place] [address] Referring Pain Management 01/29/24 Library Acquisitions Technician Relationship Specialty Start Date End Date Haider Hickman MD [address] [place] [id number] PCP - General Family Medicine 03/26/24 Miguelangel Mac MD [address] [place] [address] Referring Pain Management 01/29/24 Library Acquisitions Technician Relationship Specialty Start Date End Date Haider Hickman MD [address] [place] [phone] PCP - General Family Medicine 03/26/24 Miguelangel Mac MD [address] [place] [address] Referring Pain Management 01/29/24 Goals (unrecognized section [...] or prosecute any alcohol or drug abuse patient.[facility] the event this information is protected by the Federal Confidentiality of Alcohol and Drug Abuse Patient Records regulations: The Federal rules restrict any use of the information to criminally investigate or prosecute any alcohol or drug abuse patient.[facility] Hospital[facility] the event this information is protected by the Federal Confidentiality of Alcohol and Drug Abuse Patient Records regulations: The Federal rules restrict any use of the information to criminally investigate or prosecute any alcohol or drug abuse patient.[facility] the event this information is protected by the Federal Confidentiality of Alcohol and Drug Abuse Patient Records regulations: The Federal rules restrict any use of the information to criminally investigate or prosecute any alcohol or drug abuse patient.[facility] HospitalIn the event this information is protected by the Federal Confidentiality of Alcohol and Drug Abuse Patient Records regulations: The Federal rules restrict any use of the information to criminally investigate or prosecute any alcohol or drug abuse patient.[facility] Hospital[facility] the event this information is protected by the Federal Confidentiality of Alcohol and Drug Abuse Patient Records regulations: The Federal rules restrict any use of the information to criminally investigate or prosecute any alcohol or drug abuse patient.[facility] HospitalIn the event this information is protected by the Federal Confidentiality of Alcohol and Drug Abuse Patient Records regulations: The Federal rules restrict any use of the information to criminally investigate or prosecute any alcohol or drug abuse patient.[facility] Hospital[facility] the event this information is protected by the Federal Confidentiality of Alcohol and Drug Abuse Patient Records regulations: The Federal rules restrict any use of the information to criminally investigate or prosecute any alcohol or drug abuse patient.[facility] Hospital[facility] the event this information is protected by the Federal Confidentiality of Alcohol and Drug Abuse Patient Records regulations: The Federal rules restrict any use of the information to criminally investigate or prosecute any alcohol or drug abuse patient.[facility] FOR RECORDS PERTAINING TO PATIENTS WHO ARE [...] BE BASED ON THE PRIMARY CLINICAL RECORDS. [facility] [employer] [facility]. provides no warranty or guarantee of the accuracy or completeness of information in this document.
== END 2024-07-04 08:25 | disposition home or self-care (01) ==
LOC: US 08:24
PROVIDERS: PCP Family Medicine; Visit Provider Urology
DX: N20.0 Calculus of kidney (principal); N28.1 Cyst of kidney, acquired
CPT/HCPCS: 76775

== ENCOUNTER 2024-07-08 08:43 | Outpatient (OUT) | payer MEDICARE, OTHER, SELFPAY ==
[2024-07-08 09:00] LABS: Basophils Percent Auto 0.5 % (0.2-2.0); Eosinophils Absolute Auto 0.3 10^3/uL (0.0-0.7); Eosinophils Percent Auto 4.5 % (0.9-7.0); Hematocrit 42.8 % (42.0-54.0); Hemoglobin 13.5 g/dL (14.0-18.0); Immature Granulocytes Abs Auto 0.02 10^3/uL (0.00-0.03); Immature Granulocytes Pct Auto 0.3 % (0.0-0.5); Lymphocytes Absolute Auto 1.2 10^3/uL (1.2-3.8); Lymphocytes Percent Auto 16.8 % (20.5-60.0); Mean Corpuscular HGB Conc 31.5 g/dL (29.9-35.2); Mean Corpuscular Hemoglobin 27.8 pg (25.9-34.0); Mean Corpuscular Volume 88.2 fL (80.0-94.0); Mean Platelet Volume 10.1 fL (9.5-13.5); Monocytes Absolute Auto 0.6 10^3/uL (0.3-0.8); Monocytes Percent Auto 7.8 % (1.7-12.0); Neutrophils Absolute Auto 5.1 10^3/uL (1.4-6.5); Neutrophils Percent Auto 70.1 % (43.0-75.0); Platelet Count 172 10^3/uL (150-450); Red Blood Count 4.85 10^6/uL (4.70-6.10); Red Cell Distribution Width 14.6 % (11.0-15.0); White Blood Count 7.3 10^3/uL (4.0-11.0)
--- OUTSIDE RECORDS SUMMARY | 2024-07-08 09:04 | XMS_ITS | CCD ---
Author Organization [facility] Care Team Providers Care Furniture Mover Driver Name Role Phone Joaquina Morgan Unavailable Aldo [...] APARICIO Attending Unavailable MARY APARICIO Admitting Unavailable JOHNSNO ., DR SCARLET [place] Consulting Unavailable JOHNSON [...] JOHNSON ., DR SCARLET [place] Admitting Unavailable Eligio Soni Unavailable [phone] MD Daniel Everett Attending Provider [phone] MD Scarlet Johnson Primary Care Provider MD Eligio Soni Attending Provider MD Scarlet [...] Haider Bee Attending Unavailable Ross, Haider E. Attending Unavailable Ross, Haider ESuzie Attending Unavailable Ross, Haider E. Attending Unavailable COOK, Araceli P Admitting Unavailable [...] Ross, Haider [place]. Attending Unavailable Ross, Haider [place]. Attending Unavailable Ross, Haider Bee Attending Unavailable Ross, Haider E. Referring Unavailable Ross, Haider Bee Attending Unavailable Ross, Haider Bee Attending Unavailable Ross, Haider ESuzie Attending Unavailable DAVID ACOSTA Attending Unavailable Dolce, Kajal R Attending Unavailable Dolce, Kajal R Attending Unavailable Dolce, Kajal R Attending Unavailable REFERRAL, SELF Referring Unavailable MARY APARICIO Attending Unavailable ANDREA AGUILAR Attending Unavailable ANDREA AGUILAR Attending Unavailable APLING, MIHIR Blank Attending Unavailable APLING, MIHIR Blank Referring Unavailable MACY MCPHERSON Attending Unavailable BROWNANDREA A Attending Unavailable BROWN, ANDREA A Attending Unavailable APLING, MIHIR B Attending Unavailable APLING, MIHIR B Attending Unavailable BROWN, ANDREA A Attending Unavailable DOLCE, HYACINTH Stoner Attending Unavailable DOLCE, HYACINTH Stoner Referring Unavailable DOLCE, KAJAL R Attending Unavailable APLING, MIHIR B Attending Unavailable DOLCE, HYACINTH Stoner Attending Unavailable Allergies Allergy Classification Reported Allergen(s) Allergy Type Date of Onset Reaction(s) Facility (20 sources) Cefuroxime; Translations: [cefuroxime] Drug Allergy 06-09-20 Unknown [facility] (20 sources) celecoxib; Translations: [CELECOXIB] Drug Allergy 06-09-20 Unknown [facility] (20 sources) Diflunisal; Translations: [DIFLUNISAL] Drug Allergy 06-09-20 21 Unknown [facility] (20 sources) dulaglutide Drug Allergy 09-11-20 Unknown, g/i [facility] (20 sources) Ibuprofen Drug Allergy Unknown [employer] Other (20 sources) liraglutide; Translations: [LIRAGLUTIDE] Drug Allergy 11-25-19 stomach upset [facility] (20 sources) metFORMIN; Translations: [metFORMIN] Drug Allergy 06-09-20 stomach upset [facility] (20 sources) Naproxen; Translations: [NAPROXEN] Drug Allergy 06-09-20 Unknown [facility] (20 sources) Sulindac; Translations: [Clinoril] Drug Allergy 07-10-20 15 Unknown [facility] (1 source) Cefuroxime Drug Allergy 07-13-20 16 [facility] (3 sources) celecoxib; Translations: [CeleBREX] Drug Allergy 07-10-20 15 [facility] (3 sources) liraglutide; Translations: [Victoza] Drug Allergy [facility] (1 source) metFORMIN Drug Allergy 06-15-20 17 [facility] (3 sources) Naproxen; Translations: [Naprosyn] Drug Allergy 07-10-20 15 [facility] (3 sources) NSAIDs; Translations: [NSAIDS (NON-STEROIDAL ANTI-INFLAMMATORY DRUG)] Drug allergy (disorder) 07-10-20 15 [facility] (3 sources) Povidone-Iodine; Translations: [Dolobid] Drug Allergy 07-10-20 15 [facility] (4 sources) Cephalosporins (Antibiotic); Translations: [Cephalosporins] Propensity to adverse reactions 05-29-20 18 Unknown Reaction [facility] (2 sources) Ibuprofen; Translations: [ibuprofen] Drug Allergy 09-11-20 [facility] (3 sources) Sulindac; Translations: [sulindac] Drug Allergy 06-09-20 [facility] (1 source) Cefuroxime Drug Allergy 09-11-20 [facility]ository (1 source) celecoxib Drug Allergy 09-11-20 [facility] (1 source) Diflunisal Drug Allergy 09-11-20 [facility] (1 source) dulaglutide Drug Allergy 09-11-20 [facility] (1 source) liraglutide Drug Allergy 09-11-20 [facility] (1 source) metFORMIN Drug Allergy 09-11-20 [facility] (1 source) Naproxen Drug Allergy 09-11-20 [facility] (9 sources) Non-steroidal anti-inflammatory agent Drug Intolerance 02-05-20 GI Upset [facility] (2 sources) Cefuroxime; Translations: [Cefuroxime Axetil] Drug Allergy [facility] Repository (2 sources) dulaglutide; Translations: [Trulicity] Drug Allergy [facility] (2 sources) Niacin; Translations: [niacin] Drug Allergy [facility] (2 sources) NSAIDs; Translations: [NSAIDs] Propensity to adverse reactions (disorder) [facility] (2 sources) rofecoxib; Translations: [Vioxx] Drug Allergy [facility] Repository (1 source) rofecoxib; Translations: [ROFECOXIB] Drug Allergy 06-09-20 [facility] Repository Medications Current Medications Medication Drug [...] tablet Orally Once a day Active [facility] Active memantine hydrochloride 10 mg oral tablet (5 sources) S-zkpsgt-X-aspartate Receptor Antagonist Start: 05-31-2024 take 1 tablet [...] 28, 2018 11:00pm [facility] Metoprolol Tartrate 100 MG 1 tablet with food Orally Daily Active take 1 tablet by jatin every twenty-four hours Metoprolol Tartrate 50 MG 1 Tablet Orally Daily Active Nitro Sublingual 0.4 (20 sources) Nitro Sublingual 0.4 Sublingual As Directed Active nitroglycerin 0.4 mg sublingual tablet (9 sources) Nitrate Vasodilator Start: nitroglycerin sublingual (NITROQUICK) 0.4 mg SL tablet 04/19/2022 Active [place] 5-Haz-Udv-Fish Oil (Fish Oil) 1,000 mg (120 mg-180 mg) Capsule (2 sources) Start: 018 [place] 5-Qtg-Hyp-Fish Oil (Fish Oil) 1,000 mg (120 mg-180 [...] afternoon. 12/03/2023 Active take 1 tablet by [facility] every twenty-four hours Pioglitazone HCl 30 MG 1 tablet Orally Once a day Active take 2 tablets by mo [facility] every twenty-four hours Pioglitazone HCl 15 [...] Orally once a day Active FreeStyle Baylee Malvern - (7 sources) FreeStyle Baylee Mal[place] - use with baylee sensor SQ daily [...] Coronary arteriosclerosis; Translations: [Atherosclerotic heart disease of [place] coronary artery without angina pectoris] Onset: 12-30-2022 [...] source) long-term (current) use of aspirin; Translations: [RESIDENTIAL CURRENT USE OF ASPIRIN] Onset: 02-20-2023 Episodic Other aftercare (1 source) Other fpc (current) drug therapy; Translations: [OTH RESIDENTIAL CURRENT DRUG THERAPY] Onset: 02-20-2023 Episodic Other [...] Range Facility Office Visiton 06-26-2024 Follow-up visit [id number] Dong Whitmore 1950 M Date Provider Department Center 06/26/2024 [facility]ARY GRIFFIN [facility] Family History Problem Relation Age of Onset Coronary artery disease Other Diabetes Other Family Status - Relation Status Age at Other Level of Service:21155 MO OFFICE/OUTPATIENT ESTABLISHED MOD MDM 30 MIN Reason for Visit and Comments: Coronary Artery Disease [187] Hypertension [321406] Normal [facility] Ambulatory Visit Summaryon 0 05-31-2024 Ambulatory Visit Summary Ambulatory Visit Summary CHRISDONG DAVENPORT Boom :1950 Visit Date:05/13/2024 Ambulatory Visit Instructions Your [...] Hickman MD. This Is Your Medications List [facility] Prescription (Eric Prather, 5 years.) acarbose (acarbose [...] 30 mg Tab) potassium chloride (Potassium Chloride (Mxu-Lzyo-Vbi M20) 20 mEq oral tablet, extended release) [...] Araceli BERMUDEZ MD Where: [facility] [address], [address] [place] [address]- Monday 3:30 PM EST With: Haider Hickman MD Where: [address] [address]- Monday 10:30 AM EST With: Araceli BERMUDEZ MD Where: [facility] [address], [address] [place] [address]- 2024 8:00 AM EDT With: Where: [facility] [place] [id number]- Medications What How Much When Why Instructions [...] Unchanged nitrog (more content not included)... Normal [facility] Family Medicine Office/Clini c Noteon 05-23-2024 Family [...] day(s), # 20 cap(s), Refills(s) 0, Pharmacy: [id number], 169, cm, 05/22/24 14:52:00 EDT, Height/Length [...] day(s), # 20 cap(s), Refills(s) 0, Pharmacy: [id number], 169, cm, 05/22/24 14:52:00 EDT, Height/Length Dosing, 122, kg, 05/22/24 14:52:00 EDT, Weight Dosing 3. Non-smoker (Z78.9: Other specified health status) Encouraged to continue as a non-smoker Ordered: clindamycin, 300 mg = 1 cap(s), Oral, BID, X 10 day(s), # 20 cap(s), Refills(s) 0, Pharmacy: [id number], 169, cm, 05/22/24 14:52:00 EDT, Height/Length [...] Oral, BID (more content not included)... Normal [facility] Comment on above: Result Comment: [...] Hickman MD. This Is Your Medications List [facility] Prescription (Eric Prather, 5 years.) acarbose (acarbose [...] 30 mg Tab) potassium chloride (Potassium Chloride (Wns-Qsrp-Wbq M20) 20 mEq oral tablet, extended release) [...] With: Kajal Freeman DPM Where: [facility] [place] Monday 9:15 AM EDT With: Araceli BERMUDEZ MD Where: [facility] [address], [address] [place] [address]- Monday 3:30 PM EST With: Kristofer SCHUSTER, Haider Bee Where: [facility] [address] [address]- Monday 10:30 AM EST With: AIDAN SCHUSTER, Araceli Treadwell Where: [facility] [place] [address], [address] [place] [address]- 2024 8:00 AM EDT With: Where: [facility] [address] [address]- Medications What How Much When Why Instructions New clindamycin (clindamycin 300 mg oral cap) 1 Capsules By Mouth 2 times a day Cellulitis of leg BMI 40.0-44.9, adult Non-smoker Class 3 severe obesity due to excess calories with body mass index (BMI) of 40.0 to 44.9 in adult Duration: 10 Days Pickup at [id number] Unchanged acarbose (acarbose 25 mg oral tablet) [...] Unchanged nitroglyce (more content not included)... Normal [facility] Family Medicine Office/Clini c Noteon [...] will, Medical durable power of estate attorney Organ Donation Consent : Yes AidanDebra [...] Last Reviewed Dt/Tm: 05/13/2024 09:44:11 EDT Location: [facility] ; Anesthesia Minutes: 0 ; Procedure [...] Dt/Tm: 05/13/2024 09:44:11 (more content not included)... [facility] Comment on above: Result Comment: Elec tronically Signed By: Haider Hickman MD.br\Date and Time Signed: 05/14/24 10:23 EDT\.br\Electronically Co-Signed By: Debra Bermudez.br\Date and Time Co-Signed: 05/13/24 13:04 EDT OCTAVIOOVha 04-24-2024 CNOV Office Visit (NPRC21 ) DONG WHITMORE ([id number]) 1950 M Date Time Provider Department 04/24/24 9:00 AM CHIQUI ROBLES NPRC21 During your visit today, we recorded the following information about you: Pulse Blood pressure Weight Height 61/minute 122/89 122.5 kg 1.702 m Parish Rios MD 04/24/2024 11:26 AM Signed [facility] [place] April 24, 2024 This is a face [...] Camacho Desimir, MD 04/24/2024 11:26 AM Signed [facility] STAFF PHYSICIAN NOTE OF PERSONAL INVOLVEMENT IN CARE IMPRESSION: Complex regional pain syndrome Adjustment Disorder Tried multiple injections, procedures, surgeries. No benefit Tried SCS and recently DRG without success. Discussed ketamine PLAN: Ketamine infusions Consider scrambler therapy Psych psychology Memantine 5mg Psychotherapy Add-on Progress Note Due to medical condition and comorbid psychological and behavioral concerns - psychotherapy was utilized during the visit. Ehdp-pw-hkss time: 88615 (16-37 mins) actual time spend in psychotherapy [...] which included preparing to see the patient, lxyw-jx-rbwn patient care, completing clinical documentation, performing a medically appropriate examination, and counseling and educating the patient/family/caregiv er. As noted, the patient's clinical situation is complex and serious with significant comorbidity of pain and functional limitations. This requires higher levels of time, intensity, and expense with longitudinal care and support. STAFF PHYSICIAN:: Chiqui Robles MD DATE of SERVICE: 04/24/2024 Referring Provider: HERBERTH ARAUJO [[id number]] Allergies As of Date: 04/24/2024 Noted Allergy [...] TO [facility] (CHRONIC PAIN) [7744160] Order #: [id number]: 1 PAIN RECOVERY FOLLOW UP ORDER [[id number]] Order #: [id number]: 1 FUTURE PROVIDER ORDERED FOLLOW UP [[id number]] Order #: [id number]: 1 FUTURE memantine (NAMENDA) 5 mg tabletTake 1 tablet by mouth once daily.Disp: 30 tabletRfl: 3 CONSULT TO KETAMINE FOR CHRONIC PAIN [9098] Order #: [id number]: 1 FUTURE Prescriptions as of 04/24/2024 - memantine (NAMENDA) 5 mg tablet Take 1 tablet by mouth once daily. - aspirin, enteric coated (ASPIRIN, ENTERIC COATED) 81 mg EC tablet Take 81 mg by mouth once daily. - fi (more content not included)... [facility] BRIEF OP NOTon 04-03-2024 BRIEF OP NOT HNO ID: [id number] Author: CAPRICE DOWNING MD Service: Pain Management Author Type: Fellow Type: Brief Op Note Filed: 04/03/2024 10:35 Note Text: BRIEF OPERATIVE / PROCEDURE NOTE LOG ID: [id number] SURGERY/PROCEDURE DATE: 04/03/2024 PROCEDURE START TIME: 0959 PROCEDURE END TIME: 1030 PRE-OP/PRE-PROCEDURE DIAGNOSIS: Chronic toe pain, right foot [M79.674, G89.29] Complex regional pain syndrome type II of right lower limb [G57.71] POST-OP/POST-PROCEDURE DIAGNOSIS: Chronic toe pain, right foot [M79.674, G89.29] Complex regional pain syndrome type II of right lower limb [G57.71] SURGEON(S)/PROCEDURALI ST(S) AND JET BLADE POLISHER(S): Surgeon(s) and Role: * Herberth Araujo MD, PhD - Primary * Caprice Downing MD No Additional Staff SURGERY/PROCEDURE(S): Attempted Right L4 and L5 Dorsal Root Ganglion Stimulator ANESTHESIA: Anxiolysis and Local anesthetic FINDINGS: None ESTIMATED BLOOD LOSS: Minimal SPECIMENS: None COMPLICATIONS: None Caprice Downing MD Pain Medicine Fellow April 03, 2024 [facility] NURSING PROGon 04-03-2024 NURSING PROG HNO ID: [id number] Author: CAYETANO ROSALES RN Service: Nursing Author Type: Registered Nurse Type: Nursing Progress Note Filed: 04/08/2024 15:32 Note Text: Summary: Follow up phone call Follow up phone call made regarding outcome of procedure. No answer voicemail left - The patient was instructed to call [phone] with the percentage of pain relief and what activities have improved. Brandfolder message also sent. [facility] NURSING PROG HNO ID: [id number] Author: SURINDER LARES RN Service: Nursing Author Type: Registered Nurse Type: Nursing Progress Note Filed: 04/09/2024 10:09 Note Text: Summary: Post Procedure Call Patient left voice mail. Team was unable to finish procedure due to patient was unable to stay still. No pain relief noted. Surinder Lares RN April 09, 2024 [facility] NURSING PROG HNO ID: [id number] Author: EMILEE HYDE RN Service: ? Author Type: Registered Nurse Type: Nursing Progress Note Filed: 04/03/2024 10:45 Note Text: Dr. Marian Downing (fellow) discusses reason why procedure was aborted today. Other options for pain management was discussed with patient and . [facility] OPERATIVE NOon 04-03-2024 OPERATIVE NO HNO ID: [id number] Author: HERBERTH ARAUJO MD, PhD Service: Pain Management Author Type: Physician Type: Operative Report Filed: 04/03/2024 20:14 Note Text: OPERATIVE/PROCEDURE REPORT : LOG ID: [id number] SURGERY/PROCEDURE DATE: 04/03/2024 INCISION/PROCEDURE START TIME: 9:59 [...] Dorsal Root Ganglion Stimulator SURGEON(S)/PROCEDURALI ST(S) AND JET BLADE POLISHER(S): Surgeon(s) and Role: * Herberth Araujo MD, PhD - Primary * Caprice Dwoning MD No Additional Staff Attending presence: The [...] ELECTRONIC SIGNATURE, Herberth Araujo MD, PhD [facility] HISTORY PHYSICALon HISTORY PHYSICAL HNO ID: [id number] Author: HERBERTH ARAUJO MD, PhD Service: Pain Management Author Type: Physician Type: H&P Filed: 04/03/2024 09:33 Note Text: PROCEDURE EVALUATION AND HISTORY AND PHYSICAL EXAM SUBJECTIVE: Dong Whitmore is a 73 year old man who presents to [facility] for Right L4 and L5 Dorsal Root Ganglion Stimulator Trial. This is his first (1) procedure. Focused Review of Systems: PAIN: Denies any contraindications to the procedure including coagulopathy, infection, recent cerebral/myocardial infarct, and hemodynamic instability. 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 Current Outpatient Medications [...] the patient's condition since the last C25 [facility] visit: No Provisional Diagnosis: Chronic toe pain, right foot [M79.674, G89.29] Complex regional pain syndrome type II of right lower limb [G57.71] Planned Procedure: Right L4 and L5 Dorsal Root Ganglion Stimulator Trial Caprice Downing MD Pain Medicine Fellow April 03, 2024 Herberth Araujo MD, PhD [facility] NURSING PROGon 04-01-2024 NURSING PROG HNO ID: [id number] Author: GILBERTO BAUTISTA, DENISE Service: ? Author [...] 2 hours before the appointment. 2. A ups driver must be present who can drive you home. If you are coming by medical transport, you must have a responsible person other than the compactor driver with you. 3. Do you take any [...] or cannot make the appointment by calling [phone] (Option 2). [facility] Ambulatory Visit Summaryon 0 03-26-2024 Ambulatory [...] 40 mg Tab) potassium chloride (Potassium Chloride (Qrx-Onlx-Lcg M20) 20 mEq oral tablet, extended release) [...] Appointments Monday 9:30 AM EDT With: Where: [facility] [place] Invalid Interpretation Code [address], [address] [place] [address]- \.br \ Monday 2:15 PM EST \.br\ With: Kristofer SCHUSTER, Haider Bee\.br\ Where: [facility] Office/Clini c Noteon 03-26-2024 Family [facility] Office/Clinic Note HPI Staff Dong is a [...] years., Suppl (more content not included)... Normal [facility] Comment on above: Result Comment: [...] numbers. This can be done either in [place]ic ([place] or metric measurements. Note that charts and online BMI calculators are available to help you find your BMI quickly and easily without having to do these calculations yourself. To calculate your BMI in [place]ic ([place] measurements: 1. Measure your weight in [...] for Disease Control and Prevention: www.cdc.gov ? [place] Heart Association: www.heart.org ? National Heart, Lung, [facility] [place]: www.nhlbi.nih.gov Summary ? Body mass index (BMI) is a number that is calculated from a person's weight and height. ? BMI may help estimate how much of a person's weight is composed of fat. BMI can help identify those who may be at higher risk for certain medical problems. ? BMI can be measured using [place]ic measurements or metric measurements. ? BMI charts are used to identify whether you are underweight, normal weight, overweight, or obese. This information is not intended to replace advice given to you by your health care provider. Make sure you discuss any questions you have with your health care provider. Document Revised: 06/17/2020 Document Reviewed: 04/24/2020 [place] Patient Education ? 2022 4 the starsSuzie [facility] 03-19-2024 HERRERAN Telephone (PAINMN) DONG WHITMORE ([id number]) 1950 M Date Time Provider Department 03/19/24 HERBERTH ARAUJO During your visit today, we recorded the following information about you: Emilee So, RN 03/19/2024 1:32 PM Signed Spoke with patient at request of mill order scheduler as patient has questions about referral to infectious disease. Patient states that he spoke with his PCP, Dr. Hickman ([phone]) who spoke with Dr. Vega in Infectious disease at [facility]. Dr. Hickman ordered lab work at [...] Status:Closed by EMILEE SO on 03/21/24 [facility] BMPon 03-08-2024 Anion gap [Moles/Vol] 14 mmol/L Normal 6-16 [facility] Comment on above: Performed By: #### 2 [id number] #### [facility] [address] [place] [address] Calcium [Mass/Vol] 9.4 mg/dL Normal 8.9-11.1 [facility] Comment on above: Performed By: #### 2 [id number] #### [facility] [address] [place] [address] Chloride [Moles/Vol] 104 mmol/L Normal 101-111 [facility] Comment on above: Performed By: #### 2 [id number] #### [facility] [address] [place] [address] CO2 [Moles/Vol] 24 mmol/L Normal 21-31 [facility] Comment on above: Performed By: #### 2 [id number] #### [facility] [address] [place] [address] Creatinine [Mass/Vol] 1.5 mg/dL High 0.5-1.3 [facility] Comment on above: Performed By: #### 2 [id number] #### [facility] [address] [place] [address] Glucose [Mass/Vol] 109 mg/dL Normal 55-199 [facility] Comment on above: Performed By: #### 2 [id number] #### [facility] [address] [place] [address] Potassium [Moles/Vol] 4.2 mmol/L Normal 3.5-5.3 [facility] Comment on above: Performed By: #### 2 [id number] #### [facility] [address] [place] [address] Sodium [Moles/Vol] 138 mmol/L Normal 135-145 [facility] Comment on above: Performed By: #### 2 [id number] #### [facility] [address] [place] [address] Urea nitrogen [Mass/Vol] 26 mg/dL High 5-21 [facility] Comment on above: Performed By: #### 2 [id number] #### [facility] [address] [place] [address] Urea nitrogen/Creatinine [Mass ratio] 17 No Units Normal 10-20 [facility] Comment on above: Performed By: #### 2 [id number] #### [facility] [address] [place] [address] Consent for Treatmenton 02-08 Consent for Treatment [id number] Normal [facility] HcbP3hrf 03-08-2024 HbA1c (Bld) [Mass fraction] 6.5 % High <=5.9 [facility] Comment on above: Performed By: #### 7 [id number] #### [facility] [address] [place] [address] eGFRon 03-08-2024 eGFR 48 mL/min/1.73 m2 Low >=59 [facility] Comment on above: Order Comment: Order added by Discern Expert. Performed By: #### 1 [id number] #### [facility] [address] [place] [address] Ambulatory Visit Summaryon 0 03-07-2024 Ambulatory Visit Summary DONG WHITMORE :1950 Visit Date:03/07/2024 Ambulatory Visit Instructions Your Diagnosis Erythema of skin Stage 3a chronic kidney disease Stasis ulcer Morbid obesity with body mass index of 40.0-44.9 in adult Type 2 diabetes mellitus with peripheral vascular disease BMI 40.0-44.9, adult Nonsmoker Your Care Team Attending Physician - Haiedr Hickmna MD Primary Care Physician - Haider Hickman [...] EDT With: Kristofer SCHUSTER, Haider Bee Where: [facility] Invalid Interpretation Code [address] [place] [address]- \.br \ Monday 9:15 AM EDT \.br\ With: AIDAN SCHUSTER, Araceli Treadwell\.br\ Where: [facility] Family Medicine Office/Clini c Noteon 03-07-2024 Family Medicine Office/Clinic Note HPI Staff Dong is a 73 year old male presenting for infection right leg referral to infectious disease and possible cultures called with info as she's not sure she'll be with her at this appt He was seen at [facility] and is having drg?? end of March, [...] Ordered: Basic Metabolic Panel Blood Culture Charcoal [facility] [place] Ambulatory Referral HgbA1c 2. Stage 3a chronic kidney disease (N18.31: Chronic kidney disease, stage 3a) - Will recheck today. - No concerns Ordered: Basic Metabolic Panel Blood Culture Charcoal [facility] [place] Ambulatory Referral HgbA1c 3. Stasis ulcer (I83.009: Varicose veins of unspecified lower extremity with ulcer of unspecified site) - Most likely the cause of number 1. - No ulcer today Ordered: Basic Metabolic Panel Blood Culture Charcoal [facility] [place] Ambulatory Referral HgbA1c 4. Morbid obesity with body mass index of 40.0-44.9 in adult (E66.01: Morbid (severe) obesity due to excess calories) - Diet and exercise advsied Ordered: Basic Metabolic Panel Blood Culture Charcoal Body Mass Index (BMI) documented 3008F Current tobacco non-user 1036F Depression Screening Negative 3352F [facility] [place] Ambulatory Referral HgbA1c Influenza immunization administered [...] Ordered: Basic Metabolic Panel Blood Culture Charcoal [facility] [place] Ambulatory Referral HgbA1c 6. BMI 40.0-44.9, [...] neuropathy Complex (more content not included)... Normal [facility] Comment on above: Result Comment: Elec tronically Signed By: Kristofer SCHUSTER, Haider Sandhu.br\Date and Time Signed: 03/07/24 11:12 EDT Physician Referralon 024 Physician Referral [id number]#1. 00TIFF [facility] CNOVon 02-29-2024 CNOV Office Visit (PAINMN ) DONG WHITMORE ([id number]) 1950 M Date Time Provider Department 02/29/24 1:30 PM HERBERTH ARAUJO PAINMN During your visit today, we recorded the following information about you: Temperature Pulse Blood pressure Weight 97.4 degrees 62/minute 138/73 122.5 kg Height 1.702 m Herberth Araujo MD, PhD 03/18/2024 7:05 PM Signed [facility] Pain Management Department New Patient Consultation Referring Physician: CLAUDINE Chief Complaint: Right third toe pain SUBJECTIVE: Dong Whitmore is a 73 year old male with a pertinent past medical history of diabetes who presents to [facility]'s Pain Management Center for the evaluation of right third toe pain. 15-year history of right third toe pain. He notes that over this time the pain has become increasingly severe has caused him significant discomfort and suffering. He has been to many specialists in the [facility]-over the course of the past 15 [...] 16th pe (more content not included)... [facility] 02-09-2024 Reminders - From: Vandana Hilton MA (EU - Recalls Aidan) To: - Recalls Aidan; Sent: 02/09/2024 13:50:30 EDT Show up: 06/09/2024 13:50:00 EDT Subject: renal us Reminder/Recall Addendum by Sharla Longoria on January 30, 2024 13:44:48 EDT From: Sharla Longoria (EU - Clinical) To: [facility] Recalls Aidan; Sent: 01/30/2024 13:44:48 EDT Subject: FW: f/u after ESWL -Order for Renal US sent to Due Date/Time: 05/31/2024 13:44:00 EDT Caller Name: DONG WHITMORE; Caller Number: H , B [phone] Addendum by Sharla Longoria on January 30, 2024 13:43:59 EDT Called pt and advised him of below message. Pt voiced understanding. Pt scheduled for 07/17/24 w/ TERRIE. Will send to [facility] recall for TERRIE. Addendum by Araceli BERMUDEZ MD on January 29, 2024 18:12:03 EDT From: Araceli BERMUDEZ MD To: EU - Clinical; Sent: 01/29/2024 18:12:03 EDT Subject: RE: f/u after ESWL -Order for Renal US sent to Caller Name: DONG WHITMORE; Caller Number: H , B [phone] Please let the patient know that the [...] DONG WHITMORE; Caller Number: H , B [phone] Pt s/p R ESWL 01/03, to get [...] Due Date/Time: 01/25/2024 12:57:00 EDT Caller Name: DONG WHITMORE; Caller Number: H , B [phone] Addendum by Nan Hodges MA on January 19, 2024 12:33:50 EDT From: Nan Hodges MA (EU - Pending Results) To: EU - RUPERT/Cook Messages & Refills; Sent: 01/19/2024 12:33:50 EDT Subject: RE: f/u after ESWL -Order for Renal US sent to Due Date/Time: 01/25/2024 12:33:00 EDT Caller Name: DONG WHITMORE; Caller Number: H , B [phone] Scheduled 01/24/24 [place] [facility] From: Elena Robbins To: EU - Pending Results; Sent: 01/08/2024 09:17:33 EDT Subject: f/u after ESWL -Order for Renal US sent to Due Date/Time: 01/17/2024 09:17:00 EDT Caller Name: DONG WHITMORE; Caller Number: H , B [phone] Pt is PO R ESWL 01/03 - he is to get renal US in 2 weeks and call for results if we don't contact him 1st - order sent to [facility] CNPCynthia 02-06-2024 CNPN Telephone (MARTIRAVN) DONG WHITMORE ([id number]) 1950 M Date Time Provider Department 02/06/24 FRANCOISE SINGLETARY During your visit today, we recorded the following information about you: Lela Hyatt, RN 02/06/2024 10:46 AM Signed ----- Message from Francoise Singletary MD sent at 02/05/2024 3:12 PM EDT ----- Do you mind calling him and giving him the number to schedule at [facility] to discuss DRG? I'd suggest seeking an appointment with the following doctors who perform DRG implantation: Dr. Carlisle, Dr. Araujo, Dr. Dan, Dr. Moo Mcwilliams and Dr. Kamara may do DRG - I'm not sure. Thanks Lela! ----- Message ----- From: Livia Lester PA-C Sent: 02/05/2024 2:07 PM EDT To: Francoise Singletary MD No one on this side of [facility] that I know of does DRG so, we also send to [facility] I would just have Lela call [...] I know who do DRG are at [facility]. How do we refer him there? From what I remember, Truman Melendez, Ni, and Moo do DRG - do you know of anyone else? Leal Hyatt, RN 02/06/2024 10:55 AM Signed Called [...] Encounter Status:Closed by LELA HYATT on 02/06/24 [facility] Ksenia 02-05-2024 CNOV Office Visit (DENICE ) DONG WHITMORE ([id number]) 1950 M Date Time Provider Department 02/05/24 11:30 AM FRANCOISE SINGLETARY During your visit today, we recorded the following information about you: Pulse Blood pressure Weight 80/minute 131/70 124.7 kg Francoise Singletary MD 02/05/2024 3:14 PM Signed [facility] Pain Management Department Consultation Date: February 02, [...] The patient has seen other pain providers. [facility] Neurology OV 02/01/22 Assessment and Plan 71 [...] year old (more content not included)... Normal [facility] Renalon 01-26-2024 US Renal Exam Date/Time: 01/24/2024 [...] Rosenbaum MD Transcribed by: GREGORIO Technologist: HW [facility] Consent for Treatmenton 01-07 Consent for Treatment [id number]#1.0 0TIFF [facility] Consultation Noteon 01-22-20 24 Consultation Note [id number]#1.0 0TIFF [facility] Consultation Note [id number]#1.0 0TIFF [facility] IntraOperative Documentson 0 01-08-2024 IntraOperative Documents [id number]#1.0 0TIFF [facility] Postoperative Documentson Postoperative Documents [id number]#1. 00TIFF [facility] Consent for Anesthesiaon Consent for Anesthesia [id number]#1. 00TIFF [facility] Discharge Instructionson Discharge Instructions [id number]#1. 00TIFF Normal [facility] IntraOperative Documentson 0 01-05-2024 IntraOperative Documents [id number]#1. 00TIFF Normal [facility] IntraOperative Documents [id number]#1. 00TIFF Normal [facility] Main OR Intraoperative Recor don 01-05-2024 Main OR Intraoperative Record IntraOp Document Type FT Summary Primary Physician: Araceli BERMUDEZ MD Finalized Date/Time: 01/05/24 12:41:56 Pt. Name: CHRISETHELDONG/Sex: 1950 Male Med Rec #: [id number] Physician: Araceli BERMUDEZ MD Financial #: [id number] Pt. Type: A Room/Bed: [place] [address] Admit/Disch: 01/04/24 06:41:12 - 01/04/24 12:00:26 Institution: [...] Loja Role Performed Anesthesiologist Surgeon - Primary Autocad Draftsman - Primary Head Charger Time In 01/04/24 09:07:00 01/04/24 09:07:00 01/04/24 [...] 01/04/24 09:55:45 General Comments: FINN BRAUN - [facility] STUDENT WORKING WITH DR. BERMUDEZ. SCRUBBED IN AND OBSERVING. Win LING RN. FINN VILLEDA REP AND ESWL REP HERE FOR CASE. Win LING RN. Perioperative Protocols FT Pre-Care Text: [...] Augustin Paniagua Given Participants AIDAN Chávez MD, Araceli Treadwell, Sim Ling, Rukhsana Connors Time Out Complete 01/04/24 09:19:00 [...] Surgeon AIDAN SCHUSTER, Araceli BERMUDEZ MD, Araceli Treadwlel Start 01/04/24 09:20:00 01/04/24 09:20:00 Stop 01/04/24 [...] and tissue Entry 1 Skin Integrity Intact, [place], Warm, and Skin (more content not included)... Normal [facility] Preoperative Documentson Preoperative Documents [id number]#1. 00TIFF Normal [facility] Progress Note-Physicianon Progress Note-Physician Patient: [...] meets criteria ( To home ). Normal [facility] Comment on above: Result Comment: [...] Problems Vitamin D deficiency / SNOMED CT 36234012 / Confirmed Urgency of urination / SNOMED CT 401236412 / Confirmed Type 2 diabetes mellitus with hyperglycemia, without long-term current use of insulin / ICD-10-CM E11.65 / Confirmed Type 2 diabetes mellitus with peripheral vascular disease / SNOMED CT 113567486 / Confirmed linked DM with PVD per OP CDI policy. Type 2 diabetes mellitus with stage 3a chronic kidney disease and hypertension / SNOMED CT 400079586 / Confirmed linked DM with CKD and HTN per OP CDI policy. 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 Shoulder pain / SNOMED CT 67156932 / Confirmed Renal mass / SNOMED CT 423118268 / Confirmed Psoriasis / SNOMED CT 16182374 / Confirmed PVD (peripheral vascular disease) / SNOMED CT 4068160722 / Confirmed OA (osteoarthritis) / SNOMED CT 9794344005 / Confirmed ULISES (obstructive sleep apnea) / SNOMED CT 845507587 / Confirmed SANTANA (nonalcoholic steatohepatitis) / SNOMED CT 8594581906 / Confirmed Lumbar spondylosis / SNOMED CT 676680963 / Confirmed noted in 10/16/2023 Pain Management Consult Note page 3. added per OP CDI policy. Impotence / SNOMED CT 3060673642 / Confirmed History of kidney stones / SNOMED CT 1710468078 / Confirmed Hiatal hernia / SNOMED CT 576256427 / Confirmed GERD (gastroesophageal reflux disease) / SNOMED CT 333375087 / Confirmed Nerves / SNOMED CT 6871927820 / Confirmed Primary hypertension / SNOMED CT 84107980 / Confirmed Anticoagulated / SNOMED CT 371926139 / Confirmed Complex renal cyst / SNOMED CT 9933952579 / Confirmed Chronic painful diabetic neuropathy / SNOMED CT 4595988553 / Confirmed noted in 10/16/2023 Pain Management Consult Note page 3. added per OP CDI policy. Pain, foot, right, chronic / SNOMED CT 3310181441 / Confirmed noted in 10/16/2023 Pain Management Consult Note page 3. added per OP CDI policy. Chronic bilateral low back pain without sciatica / SNOMED CT 305161448 / Confirmed Stage 3a chronic kidney disease / SNOMED CT 9511319154 / Confirmed Excessive dietary caloric intake / SNOMED CT 807309000 / Confirmed Morbid obesity with body mass index of 40.0-44.9 in adult / SNOMED CT 6018364123 / Confirmed BPH with obstruction/lower urinary tract symptoms / SNOMED CT 4311505939 / Confirmed Anxiety / SNOMED CT 51558979 / Confirmed Allergic rhinitis / SNOMED CT 765124186 / Confirmed Acquired absence of right great toe / SNOMED CT 389627318 / Confirmed added per 07/24/2023 query response. Resolved: Neuropathy / SNOMED CT 5687317803 idiopathic chronic Resolved: Hyperlipidemia / SNOMED CT 73525139 Resolved: Depressed mood / SNOMED CT 694793239 Resolved: Amputation of toe of right foot / ICD-10-CM S98.131A Resolved: BPH - benign prostatic hyperplasia / SNOMED CT 2533438219 Resolved: Anxiety disorder / SNOMED CT 959172499 Canceled: Microscopic hematuria / SNOMED CT 083658485 Canceled: Kidney stone / IMO 31655 Canceled: Hypertension / SNOMED CT 2989149635 Canceled: HLD (hyperlipidemia) / SNOMED CT 02423881 Canceled: Glycosuria / SNOMED CT 75089809 Canceled: Diabetes / SNOMED CT 633299178 Histories Procedure history: TOE AMPUTATION on 11/16/2018 at 68 Years. Cysto, Lt retrogrades, Lt stent, Ureteral cath, Lt ESWL ([id number]) on 06/07/2018 at 67 Years. Comments: 06/21/2019 14:34 EDT - Marilynn Zhang MA Cysto, Lt retr (more content not included)... Normal [facility] Comment on above: Result Comment: [...] mGy = na DAP = na Normal [facility] Capillary Glucose POCon 12-08 Glucose [Mass/Vol] 133 mg/dL High 55-99 [facility] Comment on above: Performed By: #### 2 [id number] #### [facility] Laboratory [address] [place] [address] Consent for Procedure/Surger yon 01-04-2024 Consent for Procedure/Surgery [id number]#1. 00TIFF [facility] Consent for Treatmenton 12-08 Consent for Treatment [id number]#1.0 0TIFF [facility] Discharge Instructionson Discharge Instructions DONG WHITMORE :1950 Visit Date:01/04/2024 Inpatient Discharge Instructions Your Care Team Admitting Physician - Araceli BERMUDEZ MD Referring Physician - Araceli BERMUEDZ MD Reason for Your Visit KIDNEY STONE [...] Araceli BERMUDEZ MD Where: [facility] Invalid Interpretation Code [address] [place] [address]- \.br \ Monday 9:30 AM EDT \.br\ With:\.br\ Where: [facility] Comment on above: Result Comment: Elec tronically Signed By: Ector WALKER, Rakel Nur\.br\Date and Time Signed: 01/04/24 10:37 EDT H&P Updateon 01-04-2024 H&P Update [id number]#1. 00TIFF Normal [facility] Inpatient Patient Summaryon 01-04-2024 Inpatient Patient Summary [address] [address] [facility] Clinical Discharge Instructions PERSON INFORMATION Name: DONG WHITMORE [facility]#:[id number] PHYSICIANS Admitting Physician: Araceli BERMUDEZ MD Attending Physician: Araceli BERMUDEZ MD PCP: Haider Hickman MD Discharge Diagnosis: Comment: PATIENT EDUCATION INFORMATION Instructions: Lithotripsy, Care After Medication Leaflets: Follow up: With: Address: When: Araceli BERMUDEZ [address] [place] [address], [address], [address] [address] Business (1) Comments: Please call [...] for follow-up With: Address: When: [place] [address] [facility] [address] Business (1) Type Location Start Finish State URO Office Visit [facility] 03/13/2024 9:45 AM 03/13/2024 10:00 AM Confirmed FM Open [facility] 03/26/2024 2:15 PM 03/26/2024 2:30 PM Confirmed FM Medicare Wellness Subsequent [facility] [place] 05/13/2024 9:30 AM 05/13/2024 10:30 AM Confirmed U[facility] Office Visit [facility] [place]M [place] 11/06/2024 10:30 AM 11/06/2024 10:45 AM Confirmed MEDICATION LIST New Medications [id number], [address], [place] [id number], [phone] acetaminophen-hydrocod one (acetaminophen-hydroco done 325 mg-5 mg [...] 1 Tablets By Mouth every day. Comment: Normal [facility] Main OR PACU I Recordon 12-08 Main OR PACU I Record PACU Phase I Document Type FT Summary Primary Physician: Araceli BERMUDEZ MD Finalized Date/Time: 01/04/24 10:17:21 Pt. Name: DONG WHITMORE /Sex: 1950 Male Med Rec #: [id number] Physician: Araceli BERMUDEZ MD Financial #: [id number] Pt. Type: A Room/Bed: 01/07 Admit/Disch: 01/04/24 06:41:12 - Institution: Case Times [...] Signed By: Sangita Ross RN 01/04/24 10:17 [facility] Main OR PACU II Recordon Main OR PACU II Record PACU Phase II Document Type FT Summary Primary Physician: Araceli BERMUDEZ MD Finalized Date/Time: 01/04/24 12:01:26 Pt. Name: DONG WHITMORE/Sex: 1950 Male Med Rec #: [id number] Physician: Araceli BERMUDEZ MD Financial #: [id number] Pt. Type: A Room/Bed: [place] [address] Admit/Disch: 01/04/24 06:41:12 - 01/04/24 12:00:26 Institution: [...] Signed By: Rakel Barney RN 01/04/24 12:01 [facility] Main OR Preoperative Recordo n 01-04-2024 Main OR Preoperative Record PreOp Document Type FT Summary Primary Physician: Araceli BERMUDEZ MD Finalized Date/Time: 01/04/24 09:57:43 Pt. Name: HAIM DONGANTHONY Ann/Sex: 1950 Male Med Rec #: [id number] Physician: Araceli BERMUDEZ MD Financial #: [id number] Pt. Type: A Room/Bed: [facility]/ Admit/Disch: 01/04/24 06:41:12 - Institution: Case Times [...] her perioperative plan of care Finalized By: Sweene, Sim T Document Signatures Signed By: Sim Ling Win 01/04/24 09:57 Normal [facility] Monitor Recordon 01-04-2024 Monitor Record [id number]#1. 00TIFF Normal [facility] Operative Reporton Operative Report Patient: [...] placed per urethra and a well-lubricated 22 Rwandan is urethroscope with 30 degree lens then [...] pyelogram was then performed utilizing a 6 Rwandan open-ended ureteral catheter. The ureter is normal [...] keep the stone in view. Utilizing the [employer] Lithostar lithotripter, 1500 shocks were given up to 3.2 power level per protocol. Difficult to tell whether there was good stone fragmentation or not secondary to the patient's body habitus and the fact that this may be a uric acid calculus. He tolerates it well. Upon completion of the procedure the ureteral catheter was removed and he was transferred to the [place] and then back to PACU in satisfactory condition, stable vital signs. Plan to be for discharge home with plans for a follow-up kidney ultrasound within the next couple weeks. Prescription sent to pharmacy for doxycycline for antibiotic prophylaxis as well as 7 pills of Waldo 5/325. She was in agreement with the plan. . Estimated Blood Loss: 0 ml. Complications: None. Anesthesia type: General. Normal [facility] Comment on above: Result Comment: Elec tronically Signed By: Araceli BERMUDEZ MD\.br\Date and Time Signed: 01/04/24 10:09 EDT Outpatient Surgery Discharge Instructionon 01-04-2024 Outpatient Surgery Discharge Instruction [place] [id number] Patient Discharge Instructions PERSON INFORMATION Name: DONG [...] THE NEAREST EMERGENCY ROOM OR CALL 911 HAIM Smith STEPHEN A, have received the attached patient education materials/instructions and have verbalized understanding: May we do a follow up call? Yes No I was present when discharge instructions were given Patient Signature Date Clinican/Nurse Signature ___ Date Follow up: With: Address: When: Araceli BERMUDEZ [facility] [address] [place], [address], [address] [address] Business (1) Comments: Please call my office [...] for follow-up With: Address: When: [place] [address] [facility] [address] Business (1) Type Location Start Finish State U[place] Office Visit [facility] [place] 03/13/2024 9:45 AM 03/13/2024 10:00 AM Confirmed FM Open [facility] [place] 03/26/2024 2:15 PM 03/26/2024 2:30 PM Confirmed FM Medicare Wellness Subsequent [facility] [place] 05/13/2024 9:30 AM 05/13/2024 10:30 AM Confirmed [facility] Office Visit [facility] EU [place]fil[place] 11/06/2024 10:30 AM 11/06/2024 10:45 [...] to serve you. Thank you for choosing [facility] HERE ARE THE MEDICATION CHANGES THAT OCCURRED DURING YOUR HOSPITAL STAY New Medications [id number], [address], [place] [phone], [phone] acetaminophen-hydrocod one (acetaminophen-hydroco done 325 mg-5 mg [...] care p (more content not included)... Normal [facility] PT - Progress Noteson 2023 PT - Progress Notes [id number]#1.0 0TIFF Normal [facility] Patient Education - Texton 0 [...] these instructions at home: Medicines ? Take ywoz-wik-kjwpjhj and prescription medicines only as told by [...] forming. ? (more content not included)... Normal [facility] Physician Referralon 024 Physician Referral [id number]#1. 00TIFF Normal [facility] Physician Referral [id number]#1. 00TIFF Normal [facility] BMPon 12-29-2023 Anion gap [Moles/Vol] 13 mmol/L Normal 6-16 [facility] Comment on above: Performed By: #### 2 810702, 3663903, [id number], [id number] #### [facility] Laboratory [address] [place] [address] Calcium [Mass/Vol] 9.1 mg/dL Normal 8.9-11.1 [facility] Comment on above: Performed By: #### 2 764819, 2126282, 63002595, [id number] #### [facility] Laboratory [address] [place] [address] Chloride [Moles/Vol] 106 mmol/L Normal 101-111 [facility] Comment on above: Performed By: #### 2 249229, 3031863, [id number], [id number] #### [facility] Laboratory [address] [place] [address] CO2 [Moles/Vol] 25 mmol/L Normal 21-31 [facility] Comment on above: Performed By: #### 2 253927, 8892881, 05265263, [id number] #### [facility] Laboratory [address] [place] [address] Creatinine [Mass/Vol] 1.2 mg/dL Normal 0.5-1.3 [facility] Comment on above: Performed By: #### 2 075316, 6282330, 97769842, [id number] #### [facility] Laboratory [address] [place] [address] Glucose [Mass/Vol] 145 mg/dL Normal 55-199 [facility] Comment on above: Performed By: #### 2 973035, 0644820, [id number], [id number] #### [facility] Laboratory [address] [place] [address] Potassium [Moles/Vol] 3.8 mmol/L Normal 3.5-5.3 [facility] Comment on above: Performed By: #### 2 071494, 9028664, 69048853, [id number] #### [facility] Laboratory [address] [place] [address] Sodium [Moles/Vol] 140 mmol/L Normal 135-145 [facility] Comment on above: Performed By: #### 2 024830, 3934191, 89404437, [id number] #### [facility] Laboratory [address] [place] [address] Urea nitrogen [Mass/Vol] 25 mg/dL High 5-21 [facility] Comment on above: Performed By: #### 2 679570, 2828604, 51753140, [id number] #### [facility] [address] [place] [address] Urea nitrogen/Creatinine [Mass ratio] 21 No Units High 10-20 [facility] Comment on above: Performed By: #### 2 010395, 7439279, 53524469, [id number] #### [facility] Laboratory [address] [place] [address] CBC w/ Auto Diffon 4 Basophils/100 WBC (Bld) 0.5 % Normal 0.0-2.0 [facility] Comment on above: Performed By: #### 2 531078, 3014190, 97149379, [id number] #### [facility] Laboratory [address] [place] [address] Basophils/Leukocytes Auto (Bld) [Pure # fraction] 0.0 E9/L Normal 0.0-0.2 [facility] Comment on above: Performed By: #### 2 500268, 8608990, 84102123, 94300912 #### [facility] [address] [place] [address] 42761 Eosinophils (Bld) [#/Vol] 0.3 E9/L Normal 0.0-0.5 [facility] Comment on above: Performed By: #### 2 174585, 0955221, 61535361, 85060434 #### [facility] [address] [place] [address] 74256 Eosinophils/100 WBC (Bld) 5.7 % Normal 0.0-8.0 [facility] Comment on above: Performed By: #### 2 255512, 5364416, 63951502, 64366672 #### [facility] [address] [place] [address] 62666 Erythrocyte distribution width (RBC) [Ratio] 14.6 % High 10.9-14.2 [facility] Comment on above: Performed By: #### 2 359939, 3244628, 87307208, 02189824 #### [facility] [address] [place] [address] 03408 Hematocrit (Bld) [Volume fraction] 38.3 % Normal 37.7-49.0 [facility] Comment on above: Performed By: #### 2 093175, 3517256, 40249622, 51165137 #### [facility] [address] [place], [place] [address] Hemoglobin (Bld) [Mass/Vol] 12.8 g/dL Low 13.5-17.5 [facility] Comment on above: Performed By: #### 2 955377, 4880503, 19069954, 87001425 #### [facility] [address] [place], [place] [address] Lymphocytes (Bld) [#/Vol] 0.9 E9/L Low 1.0-4.0 [facility] Comment on above: Performed By: #### 2 317879, 9709744, 50272285, 16833665 #### [facility] [address] [place] [address] 20974 Lymphocytes/100 WBC (Bld) 17.1 % Normal 14.0-50.0 [facility] Comment on above: Performed By: #### 2 634877, 4461113, 10983317, 20042611 #### [facility] [address] [place] [address] 27061 MCH (RBC) [Entitic mass] 28.1 pg Normal 27.0-34.0 [facility] Comment on above: Performed By: #### 2 601683, 4118451, 64056471, 10106914 #### [facility] [address] [place] [address] 23015 MCHC (RBC) [Mass/Vol] 33.4 g/dL Normal 31.4-36.0 [facility] Comment on above: Performed By: #### 2 618625, 4615711, 03193331, 44166923 #### [facility] [address] [place] [address] MCV (RBC) [Entitic vol] 84.1 fL Normal 80.0-100.0 [facility] Comment on above: Performed By: #### 2 987004, 4889265, 68078804, 77038359 #### [facility] [address] [place] [address] 13391 Monocytes (Bld) [#/Vol] 0.4 E9/L Normal 0.2-1.0 [facility] Comment on above: Performed By: #### 2 467106, 7106105, 49912332, 95291701 #### [facility] [address] [place] [address] 32465 Neutrophils (Bld) [#/Vol] 3.9 E9/L Normal 2.0-7.5 [facility] Comment on above: Performed By: #### 2 275653, 7935964, 83259438, 63283330 #### [facility] [address] [place] [address] 75169 Neutrophils/100 WBC (Bld) 69.6 % Normal 36.0-75.0 [facility] Comment on above: Performed By: #### 2 363335, 5039854, 43002946, 09613948 #### [facility] [address] [place] [address] 31954 Platelet 178.0 E9/L Normal 150.0-500.0 [facility] Comment on above: Performed By: #### 2 922365, 0750536, 74381877, 12470233 #### [facility] [address] [place] [address] Platelet mean volume (Bld) [Entitic vol] 8.4 fL Normal 6.4-10.8 [facility] Comment on above: Performed By: #### 2 054109, 7949193, 11165500, 23390922 #### [facility] [address] [place] [address] 01139 RBC (Bld) [#/Vol] 4.6 E12/L Normal 4.3-5.9 [facility] Comment on above: Performed By: #### 2 324133, 2784114, 96952120, 07071901 #### [facility] [address] [place] [address] WBC corrected for nucl RBC Auto (Bld) [#/Vol] 5.5 E9/L Normal 4.0-11.0 [facility] Comment on above: Performed By: #### 2 340050, 4732041, 13153219, 41566149 #### [facility] [address] [place] [address] Consent for Treatmenton 12-08 Consent for Treatment [id number]#1.0 0TIFF Normal [facility] PT & PTTon 12-29-2023 aPTT Coag (PPP) [Time] 35.7 second(s) Normal 25.1-36.5 [facility] Comment on above: Result Comment: [...] the same coagulation reagent and instrumentation as [facility] Currently there are no coagulation studies available worldwide for children to 14 days, and no normal ranges. Heparin therapeutic range (represented by Anti-Factor Xa activity of 0.2 - 0.4 U/mL) corresponds to PTT of 56.6 - 109.0 sec. Performed By: #### 2 895759, 8075999, 30359792, 33916090 #### [facility] [address] [place] [address] INR Coag (PPP) [Relative time] 1.23 {INR} Invalid Interpretation Code [facility] Comment on above: Result Comment: INR results are specifically intended to assess patients stabilized on long-term Anticoagulation therapy suggested INR?s ?Less Intensive Anticoagulation? 2.0 ? 3.0 Conventional Range 3.0 ? 4.5 Performed By: #### 2 241471, 7319552, 83654036, 09281757 #### [facility] [address] [place] [address] PT Coag (PPP) [Time] 13.8 second(s) High 9.4-12.5 [facility] Comment on above: Result Comment: [...] the same coagulation reagent and instrumentation as [facility]. Currently there are no coagulation studies available worldwide for children to 14 days, and no normal ranges. Performed By: #### 2 626234, 7008696, 57121322, 25372595 #### [facility] [address] [place] [address] UA with Cult Rflxon 12-29-19 24 Color (U) Light-Yellow Normal Yellow [facility] Comment on above: Result Comment: Micr oscopic readings are only performed on those samples that meet specific criteria set forth by [facility]. Performed By: #### 4 [id number] ####[facility] [address] [place] [address] Glucose (U) [Mass/Vol] Negative Normal Negative [facility] Comment on above: Performed By: #### 4 [id number] ####[facility] [address] [facility] [place] [address] Ketones Ql (U) Negative Normal Negative [facility] Comment on above: Performed By: #### 4 [id number] ####[facility] [address] [place] [address] UA Blood Negative Normal Negative [facility] Comment on above: Performed By: #### 4 388395548 ####[facility] [address] [place] [address] UA Clarity Clear Normal Clear [facility] Comment on above: Performed By: #### 4 [id number] ####[place] [address] [facility] [place] [place] [address] UA Leuk Est Negative Normal Negative [facility] Comment on above: Performed By: #### 4 [id number] ####[facility] [address] [facility] [place] [place] [address] UA Nitrite Negative Normal Negative [facility] Comment on above: Performed By: #### 4 156067237 ####[facility] [address] [facility] [place] [place] [address] UA pH 6.5 Invalid Interpretation Code 5.0-9.0 [facility] Comment on above: Performed By: #### 4 [id number] ####[facility] [address] [facility] [place] [place] [address] UA Protein Trace Abnormal Negative [facility] Comment on above: Performed By: #### 4 145841964 ####[facility] [address] [facility] [place] [place] [address] UA Spec Grav 1.021 Invalid Interpretation Code 1.005-1.030 [facility] Comment on above: Performed By: #### 4 [id number] ####[facility] [address] [place] [address] UA Urobilinogen Negative Normal Negative [facility] Comment on above: Performed By: #### 4 976277880 ####[facility] [address] [facility] [place] [place] [address] Urobilinogen (U) [Mass/Vol] Negative Normal Negative [facility] Comment on above: Performed By: #### 4 385785083 ####[facility] [address] [place] [address] UA Spec Desc Clean Catch Normal [facility] Comment on above: Performed By: #### 4 443156935 ####[facility] [address] [place] [address] XR Chest 2 Viewson XR Chest 2 Views Exam Date/Time: 12/29/2023 09:35 EDT Reason for Exam: P.A.T. Report [facility] [phone] IMPRESSION: No acute infiltrates or effusions, no [...] by: Lukasz Denny MD, V. Transcribed by: DP Technologist: GREGORIOR Technical Comments Radiation Dose: Ka,r in mGy = na DAP = na Normal [facility] eGFRon 12-29-2023 eGFR 63 mL/min/1.73 m2 Normal >=59 [facility] Comment on above: Order Comment: Order added by Discern Expert. Performed By: #### 2 893370, 7068643, 24351506, 13013196 #### [facility] [address] [place] [address] Family Medicine Office/Clini c Noteon 12-28-2023 Family [...] (12/05/2016), ysto, (more content not included)... Normal [facility] Comment on above: Result Comment: Elec tronically Signed By: Kristofer SCHUSTER, Haider Bee\.br\Date and Time Signed: 12/28/23 09:51 EDT Physician Orderon 12-28-2023 Physician Order [id number]#1.0 0TIFF Normal [facility] Ambulatory Visit Summaryon 0 12-26-2023 [...] SCHUSTER, Araceli Treadwell Where: [facility] Invalid Interpretation Code [address] [place] [address]- \.br \ Monday 9:30 AM EDT \.br\ With:\.br\ Where: [facility] CMPon 12-26-2023 Albumin [Mass/Vol] 4.2 g/dL Normal 3.3-5.0 [facility] Comment on above: Performed By: #### 2 776623, 1306115, 22450394, 8397078 ####[facility] [address] [place] [address] Albumin/Globulin (S) [Mass conc ratio] 1.6 Normal 1.1-2.2 [facility] Comment on above: Performed By: #### 2 984880, 5021066, 14745525, 2600236 ####[facility] [address] [place] [address] ALP [Catalytic activity/Vol] 67 Int._Unit/L Normal 21-98 [facility] Comment on above: Performed By: #### 2 421293, 6745177, 48841485, 4901647 ####[facility] [address] [place] [address] ALT No additional P-5'-P [Catalytic activity/Vol] 20 Int._Unit/L Normal 6-46 [facility] Comment on above: Performed By: #### 2 455979, 4581903, 46328920, 6339100 ####[facility] [address] [place] [address] Anion gap [Moles/Vol] 10 mmol/L Normal 6-16 [facility] Comment on above: Performed By: #### 2 855890, 9105936, 64572702, 5858733 ####[facility] [address] [place] [address] 66898 AST [Catalytic activity/Vol] 21 Int._Unit/L Normal 5-43 [facility] Comment on above: Performed By: #### 2 016788, 6946726, 07741155, 9926549 ####[facility] [address] [place] [address] Bilirubin [Mass/Vol] 0.6 mg/dL Normal 0.0-1.1 [facility] Comment on above: Performed By: #### 2 166839, 6305219, 16980912, 6720017 ####[facility] [address] [place] [address] Calcium [Mass/Vol] 9.3 mg/dL Normal 8.9-11.1 [facility] Comment on above: Performed By: #### 2 964582, 0791257, 25161281, 0625406 ####[facility] [address] [place] [address] Chloride [Moles/Vol] 105 mmol/L Normal 101-111 [facility] Comment on above: Performed By: #### 2 433292, 1572779, 56948692, 7719799 ####[facility] [address] [place] [address] CO2 [Moles/Vol] 27 mmol/L Normal 21-31 [facility] Comment on above: Performed By: #### 2 377384, 9249278, 38408521, 4348608 ####[facility] [address] [place] [address] Creatinine [Mass/Vol] 1.3 mg/dL Normal 0.5-1.3 [facility] Comment on above: Performed By: #### 2 886572, 5254197, 59477622, 5062387 ####[address] [address] Globulin (S) [Mass/Vol] 2.6 g/dL Normal 1.4-4.0 [facility] Comment on above: Performed By: #### 2 405029, 2582052, 88424685, 9033661 ####[facility] [address] [place] [address] Glucose [Mass/Vol] 135 mg/dL Normal 55-199 [facility] Comment on above: Performed By: #### 2 496125, 4084158, 43646131, 8193038 ####[facility] [address] [place] [address] Potassium [Moles/Vol] 4.1 mmol/L Normal 3.5-5.3 [facility] Comment on above: Performed By: #### 2 548606, 1344183, 95370749, 9056923 ####[facility] [address] [place] [address] Protein [Mass/Vol] 6.8 g/dL Normal 6.0-7.8 [facility] Comment on above: Performed By: #### 2 409069, 6438050, 33602699, 4934414 ####[facility] [address] [place] [address] Sodium [Moles/Vol] 138 mmol/L Normal 135-145 [facility] Comment on above: Performed By: #### 2 102004, 8726470, 09522862, 5271374 ####[facility] [address] [place] [address] Urea nitrogen [Mass/Vol] 27 mg/dL High 5-21 [facility] Comment on above: Performed By: #### 2 406453, 6191929, 80915118, 7873235 ####[facility] [address] [place] [address] Urea nitrogen/Creatinine [Mass ratio] 21 No Units High 10-20 [facility] Comment on above: Performed By: #### 2 104709, 4307682, 50746423, 9905884 ####[facility] [address] [place] [address] Lipid Panelon 12-26-2023 Cholesterol [Mass/Vol] 118 mg/dL Low 120-200 [facility] Comment on above: Performed By: #### 2 209429, 5785805, 19689701, 6689918 ####[facility] [address] [place] [address] Cholesterol in HDL [Mass/Vol] 33 mg/dL Invalid Interpretation Code [facility] Comment on above: Result Comment: '>= 60 LOW RISK' '<= 40 HIGH RISK' Performed By: #### 2 987679, 3054749, 67951158, 5876585 ####[facility] [address] [place] [address] Cholesterol in LDL [Mass/Vol] 57 mg/dL Normal <=129 [facility] Comment on above: Performed By: #### 2 484217, 5408641, 41679114, 1327758 ####[facility] [address] [place] [address] Cholesterol in VLDL [Mass/Vol] 45 mg/dL High 7-40 [facility] Comment on above: Performed By: #### 2 765850, 1163396, 90282310, 5052719 ####[facility] [address] [facility] [place] [place] [address] Triglyceride [Mass/Vol] 225 mg/dL High <=149 [facility] Comment on above: Performed By: #### 2 275826, 3396734, 48148253, 4816721 ####[facility] [address] [place] [address] U Microalbon 12-26-2023 Albumin DL <= 20 mg/L (U) [Mass/Vol] 5.8 mg/dL High 0.0-1.9 [facility] Comment on above: Performed By: #### 1 514399405, 82845074 ####[facility] [address] [place] [address] U Protein/Creat Ratioon 12-07 Protein/Creatinine (U) [Ratio] 20.90 mg/gm Cr Normal .00-200.00 [facility] Comment on above: Performed By: #### 1 570216649, 44585153 ####[facility] [address] [facility] [place] [place] [address] U Creatinine 99.4 mg/dL Invalid Interpretation Code [facility] Comment on above: Performed By: #### 1 753882609, 55373272 ####[facility] [address] [place] [address] Ur Total Protein 20.8 mg/dL Invalid Interpretation Code [facility] Comment on above: Performed By: #### 1 846440230, 28396935 ####[facility] [address] [facility] [place] [place] [address] Vit B12on 12-26-2023 Cobalamin (Vitamin B12) [Mass/Vol] 348 pg/mL Normal 50-1500 [facility] Comment on above: Performed By: #### 2 058033, 0471214, 45914206, 2230087 ####[facility] [address] [place] [address] eGFRon 12-26-2023 eGFR 57 mL/min/1.73 m2 Low >=59 [facility] Comment on above: Order Comment: Order added by Discern Expert. Performed By: #### 2 001388, 7994703, 70709131, 7245431 ####[facility] [address] [place] [address] Pre-Visit Planningon 024 Pre-Visit Planning - From: Ceci Yu To: Kristofer SCHUSTER, Haider Bee; Sent: 12/20/2023 09:56:36 EDT Subject: Pre-Visit Planning Due Date/Time: 12/20/2023 09:56:00 EDT Caller Name: DONG WHITMORE; Caller Number: H , B [phone] Hi Dr. Hickman. During a pre-visit planning [...] feel free to contact me at extension [phone]. Thank you! 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 Normal [address] [place] [address] Consultation Noteon 12-08-19 24 Consultation Note [id number]#1.0 0TIFF Normal [facility] RAD - MISCon 11-14-2023 RAD - MISC [id number]#1.0 0TIFF Normal [facility] RAD - Ultrasound Reporton RAD - Ultrasound Report [id number]#1.0 0TIFF Normal [facility] RAD - Ultrasound Report [id number]#1.0 0TIFF Normal [facility] RAD - MISCon 10-30-2023 RAD - MISC [id number]#1.00 TIFF Normal [facility] RAD - MRI Reporton RAD - MRI Report [id number]#1.00 TIFF Normal [facility] Screenson 10-20-2023 Screens [id number]#1. 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 8 oz (237 mL) of milk, lmqnuyg-rfcthvaeegwj-r airy milk, and calcium-fortifiedfruit juice. Calcium-fortified means [...] Spinach (cooked), rhubarb, beets, sweet potatoes, and Burmese chard. ? Peanuts. ? Potato chips, mongolian fries, and baked potatoes with skin on. ? Nuts and nut products. ? Chocolate. ? If you regularly take a diuretic medicine, make sure to eat at least 1 or 2 servings of fruits or vegetables that are high in potassium each day. These include: ? Avocado. ? Banana. ? [place], prune, carrot, or tomato juice. ? Baked [...] fish oil, or vitamin B6. ? Take sviw-asg-iyyrtms and prescription medicines only as told by your health care provider. These include supplements. What foods sh (more content not included)... Normal [facility] Reminderson 10-18-2023 Reminders - From: Roya Álvarez To: PREM Bermudez; Sent: 10/18/2023 15:39:39 EST Show up: 08/18/2024 15:39:00 EST Subject: Renal US Due Date/Time: 09/17/2024 15:39:00 EST Pt needs scheduled for TERRIE prior to 1 year appointment. Being done at [facility]. order placed. Macario Byrd [facility] Urology Office/Clinic Noteon 10-18-2023 Urology Office/Clinic [...] with voice recognition artificial intelligence software, specifically [email or web address], [employer] and or [employer]. Substitutions may have occurred due to the [...] Information AIDAN SCHUSTER, Araceli Treadwell, URL [address] [place] [address]- Additional Instructions: 1 year w/ renal US [...] benign pr (more content not included)... 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 Review of Systems PHQ [...] with voice recognition artificial intelligence software, specifically [email or web address], [employer] and or [employer]. Substitutions may have occurred due to the inherent limitations of voice recognition and artificial intelligence software. ATTESTATION: Documentation services were performed after patient or guardian consented to allow [employer] to record this visit. HEMANTH claim processing specialist and provider reviewed before signing. HEMANTH: [...] under fluo (more content not included)... Normal [facility] Comment on above: Result Comment: [...] SCHUSTER, Araceli Treadwell Where: [facility] Invalid Interpretation Code [address] [place] [address]- \.br \ Monday 9:30 AM EDT \.br\ With:\.br\ Where: [facility] [place] [facility] Consultation Noteon 09-18-20 23 Consultation Note [id number]#1.0 0TIFF Normal [facility] A1C with Estimated Average G luon 09-11-2023 HbA1c (Bld) [Mass fraction] 6.900 % High 4.3-5.6 % [employer] [facility] [employer] Other HbA1c (Bld) [Mass fraction] 151 mg/dL [facility] [employer] Other Glucose [Mass/Vol] 151 mg/dL Normal [facility] Comment on above: Order Comment: Reaso n for Exam Type 2 diabetes mellitus with diabetic chronic kidney diseas Result Comment: PERF ORMED BY: [place] [address] PATHOLOGIST PULLING MACHINE OPERATOR CHRISTINA MOYA M.D. Performed By: #### A 1C [facility] eA #### [facility] [address] [place] [address] HbA1c (Bld) [Mass fraction] 6.9 % High 4.3-5.6 [facility] Comment on above: Order Comment: Reaso n for Exam Type 2 diabetes mellitus with diabetic chronic kidney diseas Result Comment: Incr eased risk for diabetes: 5.7 - 6.4 diabetes: >6.4 glycemic control for adults with diabetes: <7.0 Performed By: #### A 1C [facility] eA #### [facility] [address] [place] [address] Glucose - FINGER STICKon Glucose [Mass/Vol] 138 mg/dL [facility] [employer] [facility] Other Glucose mean value [Mass/vol ume] in Blood Estimated from glycated hemoglobinOrdered By: Aldo Middleton on 09-11-2023 Average glucose Estimated from glycated hemoglobin (Bld) [Mass/Vol] 151 mg/dL [facility] Hemoglobin A1c percentageOrd ered By: Aldo Middleton on 09-11-2023 HbA1c (Bld) [Mass fraction] 6.9 % 4.3-5.6 [facility] Comment on above: Increased risk for d iabetes: 5.7 - 6.4diabetes: >6.4glycemic control for adults with diabetes: <7.0 Consultation Noteon 09-06-20 Consultation Note [id number]#1.00 TIFF Normal [facility] Consultation Noteon 08-28-20 Consultation Note [id number]#1.00 TIFF Normal [facility] US UNI ankle/arm indiceson 1 10-24-2022 US UNI ankle/arm indices [facility] [place] [address] Ultrasound Report Signed Patient: Dong Whitmore MR#: [id number] : 1950 Acct:[id number] Age/Sex: 73 / M ADM Date: 08/24/23 Loc: [facility] Room: Type: [facility] Attending Dr: Eligio Soni MD Ordering Provider: [...] Eligio Soni MD08/24/2023 3:31 PM Dictation Location: [place] [address] Tech: Britney Sotelo Transcribed By: [facility] 08/24/23 1531 Dictated By: Eligio Soni MD 08/24/23 1530 Signed By: 08/24/23 1531 Normal [facility] US venous duplex LE RTon US venous duplex LE RT [facility] [place] [address] Ultrasound Report Signed Patient: Dong Whitmore MR#: [id number] : 1950 Acct:[id number] Age/Sex: 73 / M ADM Date: 08/24/23 Loc: [facility] Room: Type: [facility] Attending Dr: Eligio Soni MD Ordering Provider: [...] Eligio Soni MD08/24/2023 3:31 PM Dictation Location: [place] [address] Tech: Coby Gibson Transcribed By: CIRO 08/24/23 1531 Dictated By: Eligio Soni MD 08/24/23 1531 Signed By: 08/24/23 1531 [facility] Ambulatory Visit Summaryon 1 10-21-2022 [...] EST With: Kristofer SCHUSTER, Haider Bee Where: [facility] [place] Invalid Interpretation Code [address], [address] [place] [address]- \.br \ Monday 9:30 AM EDT \.br\ With:\.br\ Where: [facility] Family Medicine Office/Clini c Noteon [...] kidney d (more content not included)... Normal [facility] Comment on above: Result Comment: [...] oz glass (more content not included)... Normal [facility] Pre-Visit Planningon 023 Pre-Visit Planning - From: Ceci Yu To: Kristofer SCHUSTER, Haider Bee; Sent: 08/17/2023 10:44:28 EST Subject: Pre-Visit Planning Due Date/Time: 08/17/2023 10:44:00 EST Caller Name: DONG WHITMORE; Caller Number: H , B [phone] Co Dr. Hickman. During a pre-visit planning chart [...] feel free to contact me at extension [phone]. Thank you! Ceci Yu LPN Invalid Interpretation Code [address] [facility] Consultation Noteon 08-10-20 Consultation Note [id number]#1.0 0TIFF Normal [facility] Family Medicine Office/Clini c Noteon [...] continue to monitor along. Ordered: A1c POC 49610 Body Mass Index (BMI) documented 3008F Current [...] disease) - As above Ordered: A1c POC 11546 Body Mass Index (BMI) documented 3008F Current [...] stage 3a) - Stable Ordered: A1c POC 97137 Body Mass Index (BMI) documented 3008F Current [...] - No new issues Ordered: A1c POC 94783 Body Mass Index (BMI) documented 3008F Current [...] - BMI education given Ordered: A1c POC 54098 Body Mass Index (BMI) documented 3008F Current [...] last ye (more content not included)... Normal [facility] Comment on above: Result Comment: [...] numbers. This can be done either in [place]ic ([place].S[place] or metric measurements. Note that charts and online BMI calculators are available to help you find your BMI quickly and easily without having to do these calculations yourself. To calculate your BMI in [place]ic ([place].S.) measurements: 1. Measure your weight in [...] for Disease Control and Prevention: www.cdc.gov ? [place] Heart Association: www.heart.org ? National Heart, Lung, and Blood [place]: www.nhlbi.nih.gov Summary ? Body mass index (BMI) is a number that is calculated from a person's weight and height. ? BMI may help estimate how much of a person's weight is composed of fat. BMI can help identify those who may be at higher risk for certain medical problems. ? BMI can be measured using [place]ic measurements or metric measurements. ? BMI charts are used to identify whether you are underweight, normal weight, overweight, or obese. This information is not intended to replace advice given to you by your health care provider. Make sure you discuss any questions you have with your health care provider. Document Revised: 06/17/2020 Document Reviewed: 04/24/2020 [employer] Patient Education ? 2022 4 the stars. [facility] Physician Referralon 023 Physician Referral [id number]#1. 00TIFF [facility] Pre-Visit Planningon 023 Pre-Visit Planning - From: Ceci Yu To: Kristofer SCHUSTER, Haider Bee; Sent: 07/24/2023 15:20:33 EDT Subject: Pre-Visit Planning Due Date/Time: 07/24/2023 15:20:00 EDT Caller Name: DONG WHITMORE; Caller Number: H , B [phone] Co Dr. Hickman. During a pre-visit planning chart [...] feel free to contact me at extension [phone]. Thank you! Ceci Yu LPN From: Kristofer SCHUSTER, Haider Bee To: Ceci Yu; Sent: 07/24/2023 16:58:10 EDT Subject: RE: Pre-Visit Planning Caller Name: DONG WHITMORE; Caller Number: H , B [phone] OK to add the first one. Thank you Normal [address] [place] [address] Consultation Noteon 10-11-20 23 Consultation Note [id number]#1.0 0TIFF [facility] Operative Reporton Operative Report [id number]#1.0 0TIFF [facility] Consultation Noteon 07-03-20 Consultation Note [id number]#1.00 CD:127 [facility] Nursing Note - Woundon 06-28 Nursing Note - Wound [id number]#2. 00CD:127 [facility] Physician Referralon 023 Physician Referral [id number]#1.00 CD:127 [facility] Consent for Procedure/Surger yon 06-26-2023 Consent for Procedure/Surgery [id number]#1.0 0CD:127 [facility] Consent for Treatmenton 06-09 Consent for Treatment [id number]#1.0 0CD:127 [facility] Multi-Wound Charton 06-26-20 Multi-Wound Chart [id number] 90 [id number]#1. 00CD:127 [facility] Nursing Assessment - Woundon 06-26-2023 Nursing Assessment - Wound [id number]#1. 00CD:127 [facility] Physician Orderon 06-26-2023 Physician Order [id number]#1. 00CD:127 [facility] Progress Note - Woundon 06-09 Progress Note - Wound [id number]#1. 00CD:127 [facility] Operative Reporton 3 Operative Report [id number]#1.00 CD:127 Normal [facility] Operative Reporton 3 Operative Report [id number]#1.0 0CD:127 Normal [facility] A1C HEMOGLOBINon 02-14-2023 HbA1c (Bld) [Mass fraction] 7.6 % [employer] Other Glucose - FINGER STICKon Glucose [Mass/Vol] 215 mg/dL [employer] Other HbA1c (Bld) [Mass fraction]o n 02-14-2023 A[facility]C [facility]GLOBIN [facility] ECHOCARDIO M/2D COMPLETEon 0 12-30-2022 ECHOCARDIO M/2D COMPLETE Patient: DONG WHITMORE Exam Date: 12/30/2022 : 1950 Gender:M Ordering : MAYR APARICIO [facility] Admission #: [id number] Family : Order #: [id number] CLICK HERE TO VIEW EXAM ECHOCARDIOGRAM REPORT [...] Thibodeaux M.D. on 12/30/2022 at 18:49 Normal [facility] NM STRESS/REST MULTIon 12-29 NM STRESS/REST MULTI Patient: DONG WHITMORE Exam Date: 12/29/2022 : 1950 Gender:M Ordering : MARY APARICIO [facility] Admission #: [id number] Family : Order #: [id number] CLICK HERE TO VIEW EXAM RADIOLOGY REPORT [...] Morales M.D. on 12/30/2022 at 09:41 Normal [facility] MAMI DOP LEG RTon 12-09-19 23 US [...] by: [place]OR[place] RO[place] Date: 2022-12-08 16:15 Normal [facility] TSHon 11-25-2022 TSH 2.370 uIU/mL Normal 0.358-3.740 [facility] Comment on above: Performed By: #### T SH #### [facility] [address] [place] [address] Dr. Eli Jarvis BNPon 11-08-2022 Natriuretic peptide B (Bld) [Mass/Vol] 122.0 pg/mL Normal <=900.0 [facility] Comment on above: Performed By: #### C MP, BNP #### [facility] [address] [place] [address] [address] Eli Jarvis CBC AUTO DIFFon 11-08-2022 BASO # 0.1 103/ul Normal 0.0-0.1 [facility] Comment on above: Performed By: #### C BC ####[facility] [address] [place] [address]DrSuzie Jarvis Basophils/100 WBC (Bld) 0.7 % Normal 0.2-2.0 [facility] Comment on above: Performed By: #### C BC ####[facility] [address] [place], [place] [address]DrSuzie Jarvis EO # 0.2 103/ul Normal 0.0-0.7 [facility] Comment on above: Performed By: #### C BC ####[facility] [address] [place], [place] [address]Dr. Eli Jarvis Eosinophils/100 WBC (Bld) 3.5 % Normal 0.9-7.0 [facility] Comment on above: Performed By: #### C BC ####[facility] [address] [place] [address]DrSuzie Jarvis Erythrocyte distribution width (RBC) [Ratio] 13.8 % Normal 11.0-15.0 [facility] Comment on above: Performed By: #### C BC ####[facility] [address] [place], [place] [address]DrSuzie Jarvis Hematocrit (Bld) [Volume fraction] 42.0 % Normal 42.0-54.0 [facility] Comment on above: Performed By: #### C BC ####[facility] [address] [place] [address]Dr. Eli Jarvis Hemoglobin (Bld) [Mass/Vol] 13.8 g/dL Critically low 14.0-18.0 [facility] Comment on above: Performed By: #### C BC ####[facility] [address] [place] [address]Dr. Eli Jarvis IG # 0.03 10e3/ul Normal 0.00-0.03 [facility] Comment on above: Performed By: #### C BC ####[facility] [address] [place] [address]Dr. Eli Jarvis IG % 0.4 % Normal 0.0-0.5 [facility] Comment on above: Performed By: #### C BC ####[facility] [address] [place] [address]Dr. Eli Jarvis LYMPH # 1.3 103/ul Normal 1.2-3.8 [facility] Comment on above: Performed By: #### C BC ####[facility] [address] [place], [place] [address]Dr. Eli Jarvis Lymphocytes/100 WBC (Bld) 18.8 % Critically low 20.5-60.0 [facility] Comment on above: Performed By: #### C BC ####[facility] [address] [place] [address]Dr. Eli Jarvis MANUAL DIFF REQ NO Normal [facility] Comment on above: Performed By: #### C BC ####[facility] [address] [place] [address]Dr. Eli Jarvis MCH (RBC) [Entitic mass] 27.8 pg Normal 25.9-34.0 [facility] Comment on above: Performed By: #### C BC ####[facility] [address] [place], [place] [address]Dr. Eli Jarvis MCHC (RBC) [Mass/Vol] 32.9 g/dL Normal 29.9-35.2 [facility] Comment on above: Performed By: #### C BC ####[facility] [address] [place] [id number]. Eli Jarvis MCV (RBC) [Entitic vol] 84.7 fL Normal 80.0-94.0 [facility] Comment on above: Performed By: #### C BC ####[facility] [address] [place] [address]Dr. Eli Jarvis MONO # 0.6 103/ul Normal 0.3-0.8 [facility] Comment on above: Performed By: #### C BC ####[facility] [address] [place] [address]Dr. Eli Jarvis Monocytes/100 WBC (Bld) 8.5 % Normal 1.7-12.0 [facility] Comment on above: Performed By: #### C BC ####[facility] [address] [place] [address]Dr. Eli Jarvis NEUT # 4.7 103/ul Normal 1.4-6.5 [facility] Comment on above: Performed By: #### C BC ####[facility] [address] [place] [address]Dr. Eli Jarvis Neutrophils/100 WBC (Bld) 68.1 % Normal 43.0-75.0 [facility] Comment on above: Performed By: #### C BC ####[facility] [address] [place] [address]Dr. Eli Jarvis Platelet mean volume (Bld) [Entitic vol] 10.3 fL Normal 9.5-13.5 [facility] Comment on above: Performed By: #### C BC ####[facility] [address] [place] [address]Dr. Eli Jarvis PLT 189 103/ul Normal 150-450 [facility] Comment on above: Performed By: #### C BC ####[facility] [address] [place] [address]Dr. Eli Jarvis RBC 4.96 106/ul Normal 4.70-6.10 [facility] Comment on above: Performed By: #### C BC ####[facility] [address] [place], [place] [address]Dr. Eli Jarvis WBC 7.0 103/ul Normal 4.0-11.0 [facility] Comment on above: Performed By: #### C BC ####[facility] [address] [place] [address]Dr. Eli Jarvis PROF 14(COMP METB)on 023 Albumin [Mass/Vol] 3.6 g/dL Normal 3.4-5.0 [facility] Comment on above: Performed By: #### C MP, BNP #### [facility] [address] [place] [address] [address] Eli Jarvis Albumin/Globulin [Mass ratio] 1.1 {ratio} Normal [facility] Comment on above: Performed By: #### C MP, BNP #### [facility] [address] [place] [address] [address] Eli Jarvis ALP [Catalytic activity/Vol] 90 U/L Normal 46-116 [facility] Comment on above: Performed By: #### C MP, BNP #### [facility] [address] [place] [address] [address] Eli Jarvis ALT [Catalytic activity/Vol] 42 U/L Normal 16-63 [facility] Comment on above: Performed By: #### C MP, BNP #### [facility] [address] [place] [address] Dr. Eli Jarvis Anion gap [Moles/Vol] 13.5 mmol/L Normal [facility] Comment on above: Performed By: #### C MP, BNP #### [facility] [address] [place] [address] [address] Eli Jarvis AST [Catalytic activity/Vol] 26 U/L Normal 15-37 [facility] Comment on above: Performed By: #### C MP, BNP #### [facility] [address] [place] [address] [address] Eli Jarvis Bilirubin [Mass/Vol] 0.4 mg/dL Normal 0.2-1.0 [facility] Comment on above: Performed By: #### C MP, BNP #### [facility] [address] [place] [address] [address] Eli Jarvis Calcium [Mass/Vol] 9.3 mg/dL Normal 8.5-10.1 [facility] Comment on above: Performed By: #### C MP, BNP #### [facility] [address] [place] [address] Dr. Eli Jarvis Chloride [Moles/Vol] 104 mmol/L Normal 98-107 [facility] Comment on above: Performed By: #### C MP, BNP #### [facility] [address] [place] [address] Dr. Eli Jarvis CO2 [Moles/Vol] 25.7 mmol/L Normal 21.0-32.[address] [facility] Comment on above: Performed By: #### C MP, BNP #### [facility] [address] [place] [address] Dr. Eli Jarvis Creatinine [Mass/Vol] 1.32 mg/dL Critically high 0.70-1.30 [facility] Comment on above: Performed By: #### C MP, BNP #### [facility] [address] [place] [address] Dr. Eli Jarvis EGFR-AF BELGIAN >60 Normal >=[address] [facility] Comment on above: Performed By: #### C MP, BNP #### [facility] [address] [place] [address] Dr. Eli Jarvis EGFR-NON AF BELGIAN 53 mL/min/1.73m2 Critically low >=60 [facility] Comment on above: Performed By: #### C MP, BNP #### [facility] [address] [place] [address] Dr. Eli Jarvis Globulin (S) [Mass/Vol] 3.3 g/dL Normal [facility] Comment on above: Performed By: #### C MP, BNP #### [facility] [address] [place] [address] Dr. Eli Jarvis Glucose [Mass/Vol] 154 mg/dL Critically high 74-106 [facility] Comment on above: Performed By: #### C MP, BNP #### [facility] [address] [place], [place] [address] Dr. Eli Jarvis Potassium [Moles/Vol] 4.2 mmol/L Normal 3.5-5.1 [facility] Comment on above: Performed By: #### C MP, BNP #### [facility] [address] [place] [address] Dr. Eli Jarvis Protein [Mass/Vol] 6.9 g/dL Normal 6.4-8.2 [facility] Comment on above: Performed By: #### C MP, BNP #### [facility] [address] [place] [address] [address] Eli Jarvis Sodium [Moles/Vol] 139 mmol/L Normal 136-145 [facility] Comment on above: Performed By: #### C MP, BNP #### [facility] [address] [place] [address] Dr. Eli Jarvis Urea nitrogen [Mass/Vol] 23.0 mg/dL Critically high 7.0-18.0 [facility] Comment on above: Performed By: #### C MP, BNP #### [facility] [address] [place] [address] Dr. Eli Jarvis Urea nitrogen/Creatinine [Mass ratio] 17.4 mg/mg Normal [facility] Comment on above: Performed By: #### C MP, BNP #### [facility] [address] [place] [address] Dr. Eli Jarvis A1C HEMOGLOBINon 11-07-2022 HbA1c (Bld) [Mass fraction] 7.6 % [employer] Other Glucose - FINGER STICKon Glucose [Mass/Vol] 172 mg/dL [employer] Other HbA1c (Bld) [Mass fraction]o n 11-07-2022 A1C HEMOGLOBIN [employer] Other US KIDNEYSon 2022 US KIDNEYS EXAMINATION: [...] by: MORGAN ROJO Date: 2022 18:30 Normal [facility] A1C HEMOGLOBINon 07-27-2022 HbA1c (Bld) [Mass fraction] 7.2 % [employer] Other Glucose - FINGER STICKon Glucose [Mass/Vol] 160 mg/dL [employer] Other HbA1c (Bld) [Mass fraction]o n 07-27-2022 A1C HEMOGLOBIN [employer] Other A1C HEMOGLOBINon 04-21-2022 HbA1c (Bld) [Mass fraction] 7.6 % [employer] Other Glucose - FINGER STICKon Glucose [Mass/Vol] 184 mg/dL [employer] Other HbA1c (Bld) [Mass fraction]o n 04-21-2022 A1C HEMOGLOBIN [employer] Other [employer] Creat Ratio,Uon Albumin DL <= 20 mg/L (U) [Mass/Vol] 10.5025309 mg/dL High 0.0-1.8 mg/dL [employer] Other Albumin/Creatinine DL <= 20 mg/L (U) [Mass ratio] 70.420831 mg/g High 0.0-30.0 mg/g [employer] Other Creatinine (U) [Mass/Vol] 635.0703670 mg/dL [employer] Other CBC AUTO DIFFon 04-07-2022 BASO # 0.0 103/ul Normal 0.0-0.1 [facility] Comment on above: Performed By: #### C BC #### [facility] [address] [place] [address] [address] Eli Jarvis Basophils/100 WBC (Bld) 0.6 % Normal 0.2-2.0 [facility] Comment on above: Performed By: #### C BC #### [facility] [address] [place] [address] [address] Eli Jarvis EO # 0.2 103/ul Normal 0.0-0.7 [facility] Comment on above: Performed By: #### C BC #### [facility] [address] [place] [address] Dr. Eli Jarvis Eosinophils/100 WBC (Bld) 2.9 % Normal 0.9-7.0 [facility] Comment on above: Performed By: #### C BC #### [facility] [address] [place] [address] [address] Eli Jarvis Erythrocyte distribution width (RBC) [Ratio] 13.8 % Normal 11.0-15.0 [facility] Comment on above: Performed By: #### C BC #### [facility] [address] [place] [address] [address] Eli Jarvis Hematocrit (Bld) [Volume fraction] 40.7 % Critically low 42.0-54.0 [facility] Comment on above: Performed By: #### C BC #### [facility] [address] [place] [address] [address] Eli Jarvis Hemoglobin (Bld) [Mass/Vol] 13.3 g/dL Critically low 14.0-18.0 [facility] Comment on above: Performed By: #### C BC #### [facility] [address] [place] [address] [address] Eli Jarvis IG # 0.04 10e3/ul Critically high 0.00-0.03 [facility] Comment on above: Performed By: #### C BC #### [facility] [address] [place] [address] Dr. Eli Jarvis IG % 0.6 % Critically high 0.0-0.5 [facility] Comment on above: Performed By: #### C BC #### [facility] [address] [place] [address] Dr. Eli Jarvis LYMPH # 1.3 103/ul Normal 1.2-3.8 [facility] Comment on above: Performed By: #### C BC #### [facility] [address] [place] [address] Dr. Eli Jarvis Lymphocytes/100 WBC (Bld) 18.7 % Critically low 20.5-60.0 [facility] Comment on above: Performed By: #### C BC #### [facility] [address] [place] [address] Dr. Eli Jarvis MANUAL DIFF REQ NO Normal [facility] Comment on above: Performed By: #### C BC #### [facility] [address] [place] [address] Dr. Eli Jarvis MCH (RBC) [Entitic mass] 28.1 pg Normal 25.9-34.0 [facility] Comment on above: Performed By: #### C BC #### [facility] [address] [place] [address] Dr. Eli Jarvis MCHC (RBC) [Mass/Vol] 32.7 g/dL Normal 29.9-35.2 [facility] Comment on above: Performed By: #### C BC #### [facility] [address] [place] [address] Dr. Eli Jarvis MCV (RBC) [Entitic vol] 86.0 fL Normal 80.0-94.0 [facility] Comment on above: Performed By: #### C BC #### [facility] [address] [place] [address] Dr. Eli Jarvis MONO # 0.4 103/ul Normal 0.3-0.8 [facility] Comment on above: Performed By: #### C BC #### [facility] [address] [place] [address] Dr. Eli Jarvis Monocytes/100 WBC (Bld) 6.2 % Normal 1.7-12.0 [facility] Comment on above: Performed By: #### C BC #### [facility] [address] [address] [address] Eli Jarvis NEUT # 4.9 103/ul Normal 1.4-6.5 [facility] Comment on above: Performed By: #### C BC #### [facility] [address] [place] [address] Dr. Eli Jarvis Neutrophils/100 WBC (Bld) 71.0 % Normal 43.0-75.0 [facility] Comment on above: Performed By: #### C BC #### [facility] [address] [place] [address] Dr. Eli Jarvis Platelet mean volume (Bld) [Entitic vol] 9.9 fL Normal 9.5-13.5 [facility] Comment on above: Performed By: #### C BC #### [facility] [address] [place] [address] Dr. Eli Jarvis PLT 184 103/ul Normal 150-450 [facility] Comment on above: Performed By: #### C BC #### [facility] [address] [place] [address] Dr. Eli Jarvis RBC 4.73 106/ul Normal 4.70-6.10 [facility] Comment on above: Performed By: #### C BC #### [facility] [address] [place] [address] Dr. Eli Jarvis WBC 6.9 103/ul Normal 4.0-11.0 [facility] Comment on above: Performed By: #### C BC #### [facility] [address] [place] [address] Dr. Eli Jarvis LIPID PROFILEon 04-07-2022 CHOL-HDL RATIO NORM SEE BELOW Normal [facility] Comment on above: Result Comment: 3.3 - 4.4 LOW RISK 4.4 - 7.1 AVERAGE RISK 7.1 - 11.0 MODERATE RISK >11.0 HIGH RISK Performed By: #### C MP, LIPID ####[facility] [address] [place] [address]Dr. Eli Jarvis Cholesterol [Mass/Vol] 127 mg/dL Normal <=200 [facility] Comment on above: Performed By: #### C MP, LIPID ####[facility] [address] [place], [place] [address]Ki. Eli Jarvis Cholesterol in HDL [Mass/Vol] 36 mg/dL Critically low 40-60 [facility] Comment on above: Performed By: #### C MP, LIPID ####[facility] [address] [place] [address]Dr. Eli Jarvis Cholesterol in LDL [Mass/Vol] 58.4 mg/dL Normal [facility] Comment on above: Performed By: #### C MP, LIPID ####[facility] [address] [place] [address]Dr. Eli Jarvis Cholesterol.total/Ch olesterol in HDL [Mass ratio] 3.5 {ratio} Normal [facility] Comment on above: Performed By: #### C MP, LIPID ####[facility] [address] [place] [address]Dr. Eli Jarvis HDL NORMAL > or = 60 mg/dl - LO W CARDIOVASCULAR RISK <40 mg/dl - HIGH CARDIOVASCULAR RISK Normal [facility] Comment on above: Performed By: #### C MP, LIPID ####[facility] [address] [place] [address]Dr. Eli Jarvis LDL CALC NORMAL SEE BELOW Normal [facility] Comment on above: Result Comment: <100 mg/dl OPTIMAL 100 - 129 mg/dl NEAR OR ABOVE OPTIMAL 130 - 159 mg/dl BORDERLINE HIGH 160 - 189 mg/dl HIGH >190 mg/dl VERY HIGH Performed By: #### C MP, LIPID ####[facility] [address] [place] [address]Dr. Eli Jarvis Triglyceride [Mass/Vol] 163 mg/dL Critically high <=150 [facility] Comment on above: Performed By: #### C MP, LIPID ####[facility] [address] [place] [address]Dr. Eli Jarvis VLDL CALC 32.6 mg/dL Normal [facility] Comment on above: Performed By: #### C MP, LIPID ####[facility] [address] [place] [address]Dr. Eli Jarvis PROF 14(COMP METB)on 022 Albumin [Mass/Vol] 3.8 g/dL Normal 3.4-5.0 [facility] Comment on above: Performed By: #### C MP, LIPID ####[facility] [address] [place] [address]Dr. Eli Jarvis Albumin/Globulin [Mass ratio] 1.1 {ratio} Normal [facility] Comment on above: Performed By: #### C MP, LIPID ####[facility] [address] [place] [address]Dr. Eli Jarvis ALP [Catalytic activity/Vol] 89 U/L Normal 46-116 [facility] Comment on above: Performed By: #### C MP, LIPID ####[facility] [address] [place] [address]Dr. Eli Jarvis ALT [Catalytic activity/Vol] 43 U/L Normal 16-63 [facility] Comment on above: Performed By: #### C MP, LIPID ####[facility] [address] [place] [address]Dr. Eli Jarvis Anion gap [Moles/Vol] 10.7 mmol/L Normal [facility] Comment on above: Performed By: #### C MP, LIPID ####[facility] [address] [place] [address]Dr. Eli Jarvis AST [Catalytic activity/Vol] 24 U/L Normal 15-37 [facility] Comment on above: Performed By: #### C MP, LIPID ####[facility] [address] [place] [address]Dr. Eli Jarvis Bilirubin [Mass/Vol] 0.2 mg/dL Normal 0.2-1.0 [facility] Comment on above: Performed By: #### C MP, LIPID ####[facility] [address] [place] [id number]. Eli Jarvis Calcium [Mass/Vol] 9.1 mg/dL Normal 8.5-10.1 [facility] Comment on above: Performed By: #### C MP, LIPID ####[facility] [address] [place] [id number]. Eli Jarvis Chloride [Moles/Vol] 104 mmol/L Normal 98-107 [facility] Comment on above: Performed By: #### C MP, LIPID ####[facility] [address] [place] [address]Dr. Eli Jarvis CO2 [Moles/Vol] 27.5 mmol/L Normal 21.0-32.[address] [facility] Comment on above: Performed By: #### C MP, LIPID ####[facility] [address] [place], [place] [address]Dr. Eli Jarvis Creatinine [Mass/Vol] 1.15 mg/dL Normal 0.70-1.30 [facility] Comment on above: Performed By: #### C MP, LIPID ####[facility] [address] [place] [address]Dr. Eli Jarvis EGFR-AF BELGIAN >60 Normal >=[address] [facility] Comment on above: Performed By: #### C MP, LIPID ####[facility] [address] [place] [address]Dr. Eli Jarvis EGFR-NON AF BELGIAN >60 Normal >=60 [facility] Comment on above: Performed By: #### C MP, LIPID ####[facility] [address] [place] [address]Dr. Eli Jarvis Globulin (S) [Mass/Vol] 3.4 g/dL Normal [facility] Comment on above: Performed By: #### C MP, LIPID ####[facility] [address] [place] [address]Dr. Eli Jarvis Glucose [Mass/Vol] 157 mg/dL Critically high 74-106 [facility] Comment on above: Performed By: #### C MP, LIPID ####[facility] [address] [place], [place] [address]Ol. Eli Jarvis Potassium [Moles/Vol] 4.2 mmol/L Normal 3.5-5.1 [facility] Comment on above: Performed By: #### C MP, LIPID ####[facility] [address] [place], [place] [address]Pp. Eli Jarvis Protein [Mass/Vol] 7.2 g/dL Normal 6.4-8.2 [facility] Comment on above: Performed By: #### C MP, LIPID ####[facility] [address] [place] [id number]. Eli Jarvis Sodium [Moles/Vol] 138 mmol/L Normal 136-145 [facility] Comment on above: Performed By: #### C MP, LIPID ####[facility] [address] [place] [id number]. Eli Jarvis Urea nitrogen [Mass/Vol] 26.0 mg/dL Critically high 7.0-18.0 [facility] Comment on above: Performed By: #### C MP, LIPID ####[facility] [address] [place] [id number]. Eli Jarvis Urea nitrogen/Creatinine [Mass ratio] 22.6 mg/mg Normal [facility] Comment on above: Performed By: #### C MP, LIPID ####[facility] [address] [place] [id number]. Eli Jarvis A1C HEMOGLOBINon 10-21-2021 HbA1c (Bld) [Mass fraction] 6.6 % [employer] Other Glucose - FINGER STICKon Glucose [Mass/Vol] 169 mg/dL [employer] Other HbA1c (Bld) [Mass fraction]o n 10-21-2021 A1C HEMOGLOBIN [employer] Other Comprehensive Metabolic Pane deann 07-29-2021 Albumin [Mass/Vol] 3.9 g/dL 3.2-5.5 [employer] Other Albumin/Globulin [Mass ratio] 1.6 {ratio} [facility] [employer] Other ALP [Catalytic activity/Vol] 63 U/L 32-92 [place] [employer] Other ALT [Catalytic activity/Vol] 32 U/L 10-60 [place] [employer] Other AST [Catalytic activity/Vol] 32 U/L 10-42 [place] [employer] Other Bilirubin [Mass/Vol] 0.5 mg/dL 0.3-1.2 [facility] [employer] Other Calcium [Mass/Vol] 9.7 mg/dL 8.2-10.2 [place] [employer] Other Chloride [Moles/Vol] 105 mmol/L 95-114 [facility] [employer] Other CO2 [Moles/Vol] 22.7 mmol/L 22.0-30.0 [facility] [employer] Other Creatinine [Mass/Vol] 1.28 mg/dL 0.64-1.27 [place] [employer] Other Glucose [Mass/Vol] 111 mg/dL 70-100 [place] [employer] Other Potassium [Moles/Vol] 4.1 mmol/L 3.5-5.1 [place] [employer] Other Protein [Mass/Vol] 6.3 g/dL 6.1-7.9 [place] [employer] Other Sodium [Moles/Vol] 139 mmol/L 136-146 [place] [employer] Other Urea nitrogen [Mass/Vol] 23 mg/dL 9-23 [employer] Other Comprehensive Metabolic Panel 55 [employer] Other Comprehensive Metabolic Panel > 60 [employer] Other Comprehensive Metabolic Panel 2.4 [employer] Other Hepatitis Acute Panelon 10-2 Hepatitis Acute Panel Negative Negative [employer] [facility] [employer] Other Hepatitis Acute Panel <0.1 0.0-0.9 [employer] Other Vital Signs Date Time Vital Sign Value Performing Clinician Facility 04-24-2024 08:50-0400 Body height 170.2 cm Chiqui Robles MD Work Phone: [facility] 04-24-2024 08:50-0400 Body mass index (BMI) [Ratio] 42.28 kg/m2 Chiqui Robles MD Work Phone: [facility] 04-24-2024 08:50-0400 Body weight 122.47 kg Chiqui Robles MD Work Phone: [facility] 04-24-2024 08:50-0400 Diastolic blood pressure 89 mm[Hg] Chiqui Robles MD Work Phone: [facility] 04-24-2024 08:50-0400 Heart rate 61 /min Chiqui Robles MD Work Phone: [facility] 04-24-2024 08:50-0400 SaO2% (BldA) [Mass fraction] 95 % Chiqui Robles MD Work Phone: [facility] 04-24-2024 08:50-0400 Systolic blood pressure 122 mm[Hg] Chiqui Robles MD Work Phone: [facility] 02-29-2024 13:41-0400 Body height 170.2 cm Herberth Araujo MD, PhD Work Phone: [facility] 02-29-2024 13:41-0400 Body mass index (BMI) [Ratio] 42.29 kg/m2 Herberth Araujo MD, PhD Work Phone: [facility] 02-29-2024 13:41-0400 Body temperature 97.39 [degF] Herberth Araujo MD, PhD Work Phone: [facility] 02-29-2024 13:41-0400 Body weight 122.47 kg Herberth Araujo MD, PhD Work Phone: [facility] 02-29-2024 13:41-0400 Diastolic blood pressure 73 mm[Hg] Herberth Araujo MD, PhD Work Phone: [facility] 02-29-2024 13:41-0400 Heart rate 62 /min Herberth Araujo MD, PhD Work Phone: [facility] 02-29-2024 13:41-0400 SaO2% (BldA) [Mass fraction] 94 % Herberth Araujo MD, PhD Work Phone: [facility] 02-29-2024 13:41-0400 Systolic blood pressure 138 mm[Hg] Herberth Araujo MD, PhD Work Phone: [facility] 02-05-2024 12:17-0400 Body weight 124.74 kg Francoise Singletary MD Work Phone: [facility] 02-05-2024 12:17-0400 Diastolic blood pressure 70 mm[Hg] Francoise Singletary MD Work Phone: [facility] 02-05-2024 12:17-0400 Heart rate 80 /min Francoise Singletary MD Work Phone: [facility] 02-05-2024 12:17-0400 Systolic blood pressure 131 mm[Hg] Francoise Singletary MD Work Phone: [facility] 09-11-2023 11:00-0500 Body height 167.64 cm Tondra Mapus Other [facility] 09-11-2023 11:00-0500 Body mass index (BMI) [Ratio] 44.91 kg/m2 Tondra Mapus Other [employer] Other 09-11-2023 11:00-0500 Body weight 126.24 kg Tondra Mapus Other [employer] Other 09-11-2023 11:00-0500 Body weight 126.23 kg MD Scarlet Johnson Work Phone: [facility] 09-11-2023 11:00-0500 Diastolic blood pressure 82 mm[Hg] Tondra Mapus Other [facility] 09-11-2023 11:00-0500 Respiratory rate 18 /min Tondra Mapus Other [place] [employer] Other 09-11-2023 11:00-0500 SaO2% (BldA) [Mass fraction] 99 % Tondra Mapus Other [facility] [employer] Other 09-11-2023 11:00-0500 Systolic blood pressure 153 mm[Hg] Tondra Mapus Other [facility] 08-24-2023 13:45-0500 Body height 167.64 cm Eligio Soni Other [facility] 08-24-2023 13:45-0500 Body mass index (BMI) [Ratio] 44.22 kg/m2 Eligio Soni Other [employer] Other 08-24-2023 13:45-0500 Body temperature 97.4 [degF] Eligio Soni Other [employer] Other 08-24-2023 13:45-0500 Body weight 124.29 kg Eligio Soni Other [employer] Other 08-24-2023 13:45-0500 Body weight 124.28 kg MD Scarlet Johnson Work Phone: [facility] 08-24-2023 13:45-0500 Diastolic blood pressure 60 mm[Hg] Eligio Soni Other [facility] 08-24-2023 13:45-0500 SaO2% (BldA) [Mass fraction] 97 % Eligio Soni Other [employer] Other 08-24-2023 13:45-0500 Systolic blood pressure 130 mm[Hg] Eligio Russellfabiola Other [facility] 03-07-2023 10:00-0400 Body height 167.64 cm Terry Kimblediff Other [employer] Other 03-07-2023 10:00-0400 Body mass index (BMI) [Ratio] 43.61 kg/m2 Terry Kimblediff Other [employer] Other 03-07-2023 10:00-0400 Body weight 122.56 kg Terrynikolai Kelley Other [employer] Other 03-07-2023 10:00-0400 Diastolic blood pressure 70 mm[Hg] Terry Kelley Other [employer] Other 03-07-2023 10:00-0400 Respiratory rate 20 /min Terry Rigoberto Other [employer] Other 03-07-2023 10:00-0400 SaO2% (BldA) [Mass fraction] 96 % Terrynikolai Kelley Other [employer] Other 03-07-2023 10:00-0400 Systolic blood pressure 134 mm[Hg] Terry Kelley Other [employer] Other 02-14-2023 09:45-0400 Body height 172.72 cm Aldo Juanita Other [employer] Other 02-14-2023 09:45-0400 Body mass index (BMI) [Ratio] 41.32 kg/m2 Tondra Mapus Other [employer] Other 02-14-2023 09:45-0400 Body weight 123.29 kg Tondra Mapus Other [employer] Other 02-14-2023 09:45-0400 Diastolic blood pressure 82 mm[Hg] Tondra Mapus Other [employer] Other 02-14-2023 09:45-0400 Respiratory rate 18 /min Tondra Mapus Other [employer] Other 02-14-2023 09:45-0400 SaO2% (BldA) [Mass fraction] 97 % Tondra Mapus Other [employer] Other 02-14-2023 09:45-0400 Systolic blood pressure 157 mm[Hg] Tondra Mapus Other [employer] Other 01-20-2023 12:15-0400 Body height 172.72 cm Carito Fitt Other [employer] Other 01-20-2023 12:15-0400 Body mass index (BMI) [Ratio] 40.71 kg/m2 Carito Fitt Other [employer] Other 01-20-2023 12:15-0400 Body weight 121.47 kg Carito Fitt Other [employer] Other 01-05-2023 11:15-0400 Body height 172.72 cm Terry Kelley Other [employer] Other 01-05-2023 11:15-0400 Body mass index (BMI) [Ratio] 40.96 kg/m2 Terry Kelley Other [employer] Other 01-05-2023 11:15-0400 Body weight 122.2 kg Terry Kelley Other [employer] Other 01-05-2023 11:15-0400 Diastolic blood pressure 73 mm[Hg] Terry Kimblediff Other [employer] Other 01-05-2023 11:15-0400 Respiratory rate 18 /min Terry Kelley Other [employer] Other 01-05-2023 11:15-0400 SaO2% (BldA) [Mass fraction] 98 % Terry Kelley Other [employer] Other 01-05-2023 11:15-0400 Systolic blood pressure 143 mm[Hg] Terry Kelley Other [employer] Other 11-24-2022 12:15-0500 Body height 172.72 cm Carito Fitt Other [employer] Other 11-24-2022 12:15-0500 Body mass index (BMI) [Ratio] 42.22 kg/m2 Carito Fitt Other [employer] Other 11-24-2022 12:15-0500 Body weight 125.96 kg Carito Fitt Other [employer] Other 11-18-2022 11:15-0500 Body height 172.72 cm Terry Kelley Other [employer] Other 11-18-2022 11:15-0500 Body mass index (BMI) [Ratio] 41.96 kg/m2 Terry Kelley Other [employer] Other 11-18-2022 11:15-0500 Body weight 125.19 kg Terry Kelley Other [employer] Other 11-18-2022 11:15-0500 Diastolic blood pressure 75 mm[Hg] Terry Kelley Other [employer] Other 11-18-2022 11:15-0500 Respiratory rate 18 /min Terry Kimblediff Other [employer] Other 11-18-2022 11:15-0500 SaO2% (BldA) [Mass fraction] 99 % Terry Kimblediff Other [employer] Other 11-18-2022 11:15-0500 Systolic blood pressure 148 mm[Hg] Terry Kimblediff Other [employer] Other 11-07-2022 10:15-0500 Body height 172.72 cm Tondrboom Grantus Other [employer] Other 11-07-2022 10:15-0500 Body mass index (BMI) [Ratio] 42.58 kg/m2 Tondra Mapus Other [employer] Other 11-07-2022 10:15-0500 Body weight 127.05 kg Tondra Mapus Other [employer] Other 11-07-2022 10:15-0500 Diastolic blood pressure 83 mm[Hg] Tondra Mapus Other [employer] Other 11-07-2022 10:15-0500 Respiratory rate 18 /min Tondra Mapus Other [employer] Other 11-07-2022 10:15-0500 SaO2% (BldA) [Mass fraction] 98 % Tondra Mapus Other [employer] Other 11-07-2022 10:15-0500 Systolic blood pressure 170 mm[Hg] Tondra Mapus Other [employer] Other 10-18-2022 15:00-0500 Body height 172.72 cm Carito Fitt Other [employer] Other 2022 16:15-0400 Body height 172.72 cm Carito Fitt Other [employer] Other 07-27-2022 12:00-0400 Body height 172.72 cm Tondra Mapus Other [employer] Other 07-27-2022 12:00-0400 Body mass index (BMI) [Ratio] 40.9 kg/m2 Tondra Mapus Other [employer] Other 07-27-2022 12:00-0400 Body weight 122.02 kg Tondra Mapus Other [employer] Other 07-27-2022 12:00-0400 Diastolic blood pressure 75 mm[Hg] Tondra Mapus Other [employer] Other 07-27-2022 12:00-0400 Respiratory rate 20 /min Tondra Mapus Other [employer] Other 07-27-2022 12:00-0400 SaO2% (BldA) [Mass fraction] 97 % Tondra Mapus Other [employer] Other 07-27-2022 12:00-0400 Systolic blood pressure 141 mm[Hg] Tondra Mapus Other [employer] Other 06-08-2022 10:45-0400 Body height 172.72 cm Carito Fitt Other [employer] Other 04-21-2022 12:00-0400 Body height 172.72 cm Tondra Mapus Other [employer] Other 04-21-2022 12:00-0400 Body mass index (BMI) [Ratio] 39.67 kg/m2 Tondra Mapus Other [employer] Other 04-21-2022 12:00-0400 Body weight 118.34 kg Tondra Mapus Other [employer] Other 04-21-2022 12:00-0400 Diastolic blood pressure 74 mm[Hg] Tondra Mapus Other [employer] Other 04-21-2022 12:00-0400 Respiratory rate 20 /min Tondra Mapus Other [employer] Other 04-21-2022 12:00-0400 SaO2% (BldA) [Mass fraction] 97 % Tondra Mapus Other [employer] Other 04-21-2022 12:00-0400 Systolic blood pressure 143 mm[Hg] Tondra Mapus Other [employer] Other 10-21-2021 12:00-0500 Body height 172.72 cm Tondra Mapus Other [employer] Other 10-21-2021 12:00-0500 Body mass index (BMI) [Ratio] 40.14 kg/m2 Tondra Mapus Other [employer] Other 10-21-2021 12:00-0500 Body weight 119.75 kg Tondra Mapus Other [employer] Other 10-21-2021 12:00-0500 Diastolic blood pressure 78 mm[Hg] Tondra Mapus Other [employer] Other 10-21-2021 12:00-0500 Respiratory rate 20 /min Tondra Mapus Other [employer] Other 10-21-2021 12:00-0500 SaO2% (BldA) [Mass fraction] 97 % Tondra Mapus Other [employer] Other 10-21-2021 12:00-0500 Systolic blood pressure 147 mm[Hg] Tondra Mapus Other [employer] Other 07-21-2021 15:45-0400 Body height 172.72 cm Morgan Joaquina Other [employer] Other 07-21-2021 15:45-0400 Body mass index (BMI) [Ratio] 38.77 kg/m2 Morgan Kunz Other [employer] Other 07-21-2021 15:45-0400 Body weight 115.67 kg Morgan Kunz Other [employer] Other 12-14-2017 15:17-0500 Body height 170.18 cm MD Scarlet Johnson Work Phone: [facility] Encounters Encounter Date Encounter Type Care Provider Facility Start: 11-06-2024 [facility] Start: 07-17-2024 ambulatory Araceli BERMUDEZ Facility : [facility] Start: 07-03-2024 End: 07-03-2024 ambulatory HYACINTH D DOLCE Not Available Start: 07-01-2024 End: 07-01-2024 ambulatory MIHIR B APLING Not Available Start: 06-26-2024 End: 06-26-2024 ambulatory [facility] Start: 06-25-2024 End: 06-25-2024 ambulatory KAJAL R DOLCE Not Available Start: 06-19-2024 End: 06-19-2024 ambulatory Kajal R Dolce [facility] Start: 06-19-2024 End: 06-19-2024 ambulatory HYACINTH D DOLCE Not Available Start: 06-18-2024 End: 06-18-2024 ambulatory ANDREA AGUILAR Not Available Start: 06-12-2024 End: 06-12-2024 ambulatory Kajal R Dolce [facility] Start: 06-12-2024 End: 06-12-2024 ambulatory MIHIR B APLING Not Available Start: 06-07-2024 End: 06-07-2024 [facility] Britney Rodriguez PhD Work Phone: Pain Recovery Comment on above: Adjustment disorder with depressed mood (Primary Dx); Complex regional pain syndrome type II of right lower limb; Chronic toe pain, right foot Start: 06-05-2024 End: 06-05-2024 ambulatory Kajal R Dolce [facility] Start: 05-27-2024 End: 05-27-2024 ambulatory MIHIR PARISI Not Available Start: 05-23-2024 ambulatory Chiqui chapa MD Work Phone: Neurology Pain Comment on above: taking memantine HCL Start: 05-22-2024 End: 05-22-2024 ambulatory DAVID Boom DAVE Facility:[facility] Start: 05-13-2024 End: 05-13-2024 ambulatory Haider Hickman Facility: [facility] Start: 05-09-2024 End: 05-09-2024 ambulatory ANDREA AGUILAR Not Available Start: 05-07-2024 ambulatory Morgan Trinidad Therapist Work Phone: Pain Recovery Comment on above: next step, resources Start: 05-07-2024 E-mail encounter fro m caregiver Morgan Trinidad Therapist Work Phone: Pain Recovery Start: 05-06-2024 End: 05-06-2024 [facility] Morgan Trinidad Therapist Work Phone: Pain Recovery Comment on above: Adjustment disorder with depressed mood (Primary Dx); Complex regional pain syndrome type II of right lower limb; Chronic toe pain, right foot Start: 04-24-2024 End: 04-24-[address] [facility] Facility:[facility] Start: 04-24-2024 End: 04-24-2024 Patient encounter [...] End: 04-23-2024 ambulatory Haider Hickman Facility: [facility] Start: 04-03-2024 End: 04-03-[address] [facility] Facility:[facility] Start: 03-26-2024 End: 03-26-2024 ambulatory Haider Hickman Facility:[facility] Jocelyn silva Start: 03-19-2024 Telephone encounter Herberth meyers MD, PhD Work Phone: Pain Management Comment on above: Nurse Triage Call Start: 03-08-2024 End: 03-08-2024 ambulatory Haider Hickman [facility] Start: 03-07-2024 End: 03-07-2024 ambulatory Haider Hickman Facility:[facility] Jocelyn silva Start: 02-29-2024 End: 02-29-2024 ambulatory HERBERTH ARAUJO Facility:[facility] Start: 02-29-2024 End: 02-29-2024 Patient encounter [...] Start: 02-05-2024 End: 02-05-2024 ambulatory FRANCOISE SINGLETARY Facility:[facility] Start: 02-05-2024 End: 02-05-2024 Patient encounter procedure Francoise Singletary MD Work Phone: Pain Management Comment on above: Chronic toe pain, ri ght foot (Primary Dx); Painful diabetic neuropathy (HCC); Class 3 severe obesity with serious comorbidity and body mass index (BMI) of 40.0 to 44.9 in adult, unspecified obesity type (HCC) Start: 01-24-2024 End: 01-24-2024 ambulatory Araceli BERMUDEZ [place] Start: 01-22-2024 End: 01-22-2024 ambulatory MACY MCPHERSON Not Available Start: 01-04-2024 End: 01-04-2024 ambulatory Araceli BERMUDEZ [facility] Start: 01-03-2024 End: 01-03-2024 ambulatory MIHIR PARISI Not Available Start: 12-29-2023 End: 12-29-2023 ambulatory Araceli Mile BERMUDEZ [facility] Start: 12-26-2023 End: 12-26-2023 ambulatory Haider Hickman [facility] Start: 12-14-2023 End: 12-14-2023 ambulatory ANDREA AGUILAR Not Available Start: 12-04-2023 End: 12-05-2023 ambulatory Miguelangel Mac MD Facility:[facility] Start: 10-18-2023 End: 10-18-2023 ambulatory Araceli BERMUDEZ Facility:[facility] Start: 10-16-2023 End: 10-17-2023 ambulatory Miguelangel Mac MD Facility:[facility] Start: 10-05-2023 End: 10-05-2023 ambulatory ANDREA AGUILAR Not Available Start: 09-25-2023 End: 09-26-2023 ambulatory Miguelangel Mac MD Facility:[facility] Start: 09-20-2023 End: 09-20-2023 ambulatory [facility] Start: 09-12-2023 End: 09-12-2023 ambulatory Tondra Emi Other [employer] [facility] [employer] Other Start: 09-12-2023 Telephone encounter Tondra Middleton [facility] Start: 09-11-2023 (DM) Diabetes Tondra Mapus [facility] Start: 09-11-2023 End: 09-12-2023 ambulatory MD Scarlet Johnson Work Phone: [employer] Other Start: 09-11-2023 End: 09-11-2023 Discharged Recurring MD Scarlet Johnson Work Phone: [facility] Work Phone: Start: 09-11-2023 End: 09-11-2023 Patient encounter procedure MD Scarlet Johnson Work Phone: [facility] Work Phone: Start: 08-24-2023 End: 08-24-2023 Patient encounter procedure MD Scarlet Johnson Work Phone: [facility] Start: 08-24-2023 End: 08-24-2023 ambulatory MD Scarlet Johnson Work Phone: [facility] Work Phone: Start: 08-24-2023 Office outpatient ne w 60 minutes Eligio Soni [facility] Surgery Start: 08-24-2023 End: 08-24-2023 Patient encounter procedure MD Scarlet Johnson Work Phone: [facility] Vascular Surgery Work Phone: Start: 08-21-2023 End: 08-21-2023 ambulatory Haider Hickman Facility:[facility] Start: 07-26-2023 End: 07-26-2023 ambulatory Haider Hickman Facility:[facility] Start: 06-27-2023 ambulatory Haider Hickman Facility: [facility] Start: 06-26-2023 End: 06-26-2023 ambulatory Kaleb Mallory [facility] Start: 06-19-2023 End: 06-20-2023 ambulatory Miguelangel Mac MD Facility: [facility] Start: 06-14-2023 End: 06-14-2023 ambulatory Tondra Mapus Other [facility] [employer] Other Start: 06-14-2023 Telephone encounter Tondra Mapus [facility] Start: 06-09-2023 End: 06-09-2023 ambulatory Carito West Other [facility] [employer] Other Start: 06-09-2023 Nursing evaluation o f patient and report Carito West [facility] Start: 06-09-2023 Registered Recurring MD Scarlet franks Work Phone: [facility] Work Phone: Start: 06-05-2023 End: 06-06-2023 ambulatory Miguelangel Mac MD [facility] [facility] Start: 05-31-2023 End: 05-31-2023 ambulatory Tondra Mapus Other [employer] Other Start: 05-31-2023 Telephone encounter Tondra Middleton [facility] Start: 05-22-2023 End: 05-23-2023 ambulatory Miguelangel Mac MD Facility:[facility] Start: 03-07-2023 Follow-up encounter [facility] Start: 03-07-2023 End: 03-08-2023 ambulatory Terry Kelley [place] [employer] Other Start: 02-17-2023 End: 02-17-[address] JOVITA WOODARD . Facility:H1 Start: 02-14-2023 (DM) Diabetes Tondra Emi [facility] Start: 02-14-2023 End: 02-14-2023 ambulatory Tondra Mapus Other [employer] Other Start: 01-20-2023 ([facility] RD FU) [facility] F/ U Registerd Plant Specialist Carito West [facility] Start: 01-20-2023 End: 01-20-2023 ambulatory Carito West Other [employer] Other Start: 01-05-2023 End: 01-05-2023 ambulatory Terry Kelley Other [employer] Other Start: 01-05-2023 Follow-up encounter Terry [facility] Start: 12-30-2022 End: 12-31-2022 ambulatory MARY APARICIO Facility: Start: 12-29-2022 End: 12-30-[address] BRITTNY MORALES Facility:[facility]1 Start: 12-21-2022 End: 01-28-[address] SCARLET JOHNSON . Facility:[facility]1 Start: 12-09-[address] SCARLET JOHNSON . Facil ity:H1 Start: 12-08-2022 End: 12-09-[address] MORGAN ROJO Facility:H1 Start: 11-25-2022 End: 11-26-[address] TERRY KELLEY Facility:H1 Start: 11-24-2022 ([facility] WMNI) [facility]N Initial Provider Carito West [facility] Start: 11-24-2022 End: 11-24-2022 ambulatory Carito West Other [employer] Other Start: 11-22-2022 End: 11-22-2022 ambulatory Tondra Mapus Other [employer] Other Start: 11-22-2022 Nursing evaluation o f patient and report Tona Juanitaus [facility] Start: 11-18-2022 End: 11-18-2022 ambulatory Terry Kelley Other [employer] Other Start: 11-18-2022 Nutrition therapy Terry Kelley [facility] Start: 11-08-2022 End: 11-09-[address] SCARLET JOHNSON . 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 DB FU) [facility] Diabetes F/U Carito West [facility] Start: 2022 End: 08-11-[address] ARACELI BERMUDEZ [place] [employer] Other Start: 07-29-2022 End: 07-30-[address] SCARLET JOHNSON . Facility:H1 Start: 07-27-2022 (DM) Diabetes Tondra Mapus [facility] Start: 07-27-2022 End: 07-27-2022 ambulatory Tondra Mapus Other [employer] Other Start: 06-08-2022 (Plant Specialist) Plant Specialist Carito [facility] Start: 06-08-2022 End: 06-08-2022 ambulatory Carito West Other [employer] Other Start: 04-21-2022 (DM) Diabetes Tondra Mapus [facility] Start: 04-21-2022 End: 04-21-2022 ambulatory Tondra Mapus Other [employer] Other Start: 04-21-2022 Telephone encounter Tondra Mapus [facility] Start: 04-07-2022 End: 04-08-[address] SCARLET JOHNSON . Facility:H1 Start: 10-21-2021 (DM) Diabetes Tondra Mapus [facility] Start: 10-21-2021 End: 10-21-2021 ambulatory Tondra Mapus Other [employer] Other Start: 07-21-2021 Office outpatient ne w [...] 10:00 AM EST Office Visit Neurology Pain [id number] [id number] Chiqui Robles MD [address] [place] [address] 1 Month Follow Up Neurology Pain Comment on above: 1 Month Follow Up Start: 06-09-2024 Influenza vaccination [facility] Start: 06-07-2024 End: 06-07-2024 ambulatory 06/07/2024 12:30 PM EDT [facility] [address] [place] [address] Britney Rodriguez, PhD [address] [place] [address] [facility] Comment on above: [facility] Start: 05-06-2024 End: 05-06-2024 ambulatory 05/06/2024 9:00 AM EDT [facility] [address] [place] [address] Morgan Trinidad, Therapist [address] [place] [address] PAIN PSYCH Pain Recovery Comment on above: PAIN PSYCH Start: 04-17-2024 End: 04-17-2024 Patient encounter procedure 04/17/2024 10:00 AM EDT Office Visit Pain Management [address] [place] [address] Eufemia Ortiz PA-C [address] [place] [address] SUTURAL REMOVAL Pain Management Comment on above: SUTURAL REMOVAL Start: 04-03-2024 End: 04-03-2024 Admission to same day surgery center 04/03/2024 10:00 AM EDT - 04/03/2024 11:05 AM EDT Surgery Pain Management [address] [place] [address] Herberth Araujo MD, PhD [address] [place] [address] Right L4 and L5 DRG Trial Pain Management Comment on above: Right L4 and L5 DRG Trial Start: 04-03-2024 End: 04-03-2024 Prq impltj nstim electrode array epidural PERCUTANEOUS IMPLANT LEAD NEUROSTIM EPIDURAL TRIAL Chronic toe pain, right foot Complex regional pain syndrome type II of right lower limb 04/03/2024 10:00 AM EDT [facility] Start: 04-03-2024 Subsequent hospital visit by physician 04/03/2024 10:00 AM EDT Hospital Encounter Pain Management [address] [place] [address] Herberth Araujo MD, PhD [address] [place] [address] Chronic toe pain, right foot [M79.674, G89.29], Complex regional pain syndrome type II of right lower limb [G57.71] Pain Management Comment on above: Chronic toe pain, ri ght foot [M79.674, G89.29], Complex regional pain syndrome type II of right lower limb [G57.71] Start: 10-09-2023 Advance Directive Discussion Advance Directive Discussion [facility] Start: 10-09-2023 Behavioral Health Screening Behavioral Health Screening [facility] Start: 06-09-2023 Covid-19 Vaccine ( season) Covid-19 Vaccine ( season) [facility] Start: 2014 Pneumococcal Vaccine : 65+ (1 of 1 - PCV) Pneumococcal Vaccine: 65+ (1 of 1 - PCV) [facility] Start: 2009 RSV Vaccine (1 - 1-d ose 60+ series) RSV Vaccine (1 - 1-dose 60+ series) [facility] Start: 1999 Shingrix Vaccine (1 of 2) Shingrix Vaccine (1 of 2) [facility] Start: 1994 Diabetes Screening Diabetes Screenin g [facility] Start: 1994 Screening for malign ant neoplasm of colon [facility] Start: 1984 Lipid panel Lipid Screening [facility] Start: 1968 Urine microalbumin profile DTaP,Tdap,Td Vaccine (1 - Tdap) [facility] Start: 1967 Annual PCP Team Form Grader Operator hai Disease Visit Annual PCP Team Chronic Disease Visit [facility] Start: 1967 Anxiety Screening Anxiety Screening [facility] Start: 1967 Depression Screening Depression Scre ening [facility] Start: 1967 Hepatitis B surface antibody level LDL Cholesterol [facility] Start: 1967 Hepatitis C screening Hepatitis C Sc ang [facility] Start: 1959 Diabetic foot examination Diabetic Foot Exam [facility] Start: 1959 Glaucoma screening Dilated Retinal E xam [facility] Start: 1959 Hepatitis B screening Urine Albumin:Creatinine Ratio [facility] Start: 1955 Pneumococcal Vaccine : 65+ (1 of 2 - PCV) Pneumococcal Vaccine: 65+ (1 of 2 - PCV) [facility] Start: 1954 Hemoglobin A1c measurement HbA1C [facility] Immunizations Immunization Date Immunization Notes Care Provider Margarita sunshine 12-30-2020 COVID-19 Vaccine Mod gino - Documentation Purposes Only Morgan Kunz Other [facility] 12-02-2020 COVID-19 Vaccine Mod gino - Documentation Purposes Only Morgan Kunz Other [facility] Payers Date Payer Category Payer Unknown 2017 Self-pay [id number] 2017 Unknown [id number] 2012 Medicare 1959 Medicare [id number] 2.1 [id number] 1959 Unknown [id number] 2. 16.840.1.121107.19 1949 Unknown [id number] 2.16.84 0.1.119706.3.579.2.593 1949 Unknown [id number] 2.16.84 0.1.419279.3.579.2.593 1949 Unknown [id number] 2.16.84 0.1.534515.3.579.2.593 1949 Unknown [id number] 2.16.84 0.1.014872.3.579.2.593 1949 Unknown [id number] 2.16.84 0.1.671920.3.579.2.593 1949 Unknown [id number] 2.16.84 0.1.127321.3.579.2.593 1949 Unknown [id number] 2.16.84 0.1.790883.3.579.2.593 1949 Unknown [id number] 2.16.84 0.1.692386.3.579.2.593 1949 Unknown [id number] 2.16.84 0.1.157876.3.579.2.593 1949 Unknown [id number] 2.16.84 0.1.643398.3.579.2.593 1949 Unknown [id number] 2.16.84 0.1.578351.3.579.2.593 1949 Unknown [id number] 2.16.84 0.1.242424.3.579.2.593 1949 Unknown [id number] 2.16. 840.1.838315.3.579.2.196 1949 Unknown [id number] 2.16. 840.1.756508.3.579.2.196 1949 Unknown [id number] 2.16. 840.1.440623.3.579.2.196 1949 Unknown [id number] 2.16. 840.1.798914.3.579.2.196 1949 Unknown [id number] 2.16. 840.1.819559.3.579.2.196 1949 Unknown [id number] 2.16. 840.1.089716.3.579.2.196 1949 Unknown [id number] 2.16.8 40.1.592213.3.579.2.72 1949 Unknown [id number] 2.16.8 40.1.145938.3.579.2.72 1949 Unknown [id number] 2.16.8 40.1.865503.3.579.2.72 1949 Unknown [id number] 2.16.8 40.1.770719.3.579.2.72 1949 Unknown [id number] 2.16.8 40.1.968132.3.579.2.72 1949 Unknown [id number] 2.16.8 40.1.055877.3.579.2.72 1949 Unknown [id number] 2.16.8 40.1.208446.3.579.2.727 1949 Unknown [id number] 2.16.8 40.1.994654.3.579.2.72 1949 Unknown [id number] 2.16.8 40.1.109081.3.579.2.72 1949 Unknown [id number] 2.16.8 40.1.250947.3.579.2.72 1949 Unknown [id number] 2.16.8 40.1.119687.3.579.2. 1949 Unknown [id number] 2.16.8 40.1.878447.3.579.2.72 1949 Unknown [id number] 2.16.8 40.1.180013.3.579.2.727 1949 Unknown [id number] 2.16.8 40.1.202265.3.579.2. 1949 Unknown [id number] 2.16.8 40.1.244673.3.579.2. 1949 Unknown [id number] 2.16.8 40.1.164019.3.579.2. 1949 Unknown [id number] 2.16.8 40.1.384463.3.579.2. 1949 Unknown [id number] 2.16.8 40.1.829968.3.579.2. 1949 Unknown [id number] 2.16.8 40.1.021310.3.579.2. 1949 Unknown [id number] 2.16.8 40.1.579583.3.579.2. 1949 Unknown [id number] 2.16.8 40.1.655294.3.579.2. 1949 Unknown [id number] 2.16.8 40.1.254553.3.579.2. 1949 Unknown [id number] 2.16.8 40.1.665675.3.579.2.7 1949 Unknown [id number] 2.16.84 0.1.503558.3.579.2.1258 1949 Unknown [id number] 2.16.84 0.1.105032.3.579.2.125 1949 Unknown [id number] 2.16.84 0.1.883585.3.579.2.1258 1949 Unknown [id number] 2.16.84 0.1.812585.3.579.2.1258 1949 Unknown [id number] 2.16.84 0.1.416792.3.579.2.1258 1949 Unknown [id number] 2.16.84 0.1.097053.3.579.2.1259 1949 Unknown [id number] 2.16.84 0.1.887161.3.579.2.1259 1949 Unknown [id number] 2.16.84 0.1.423917.3.579.2.1259 1949 Unknown [id number] 2.16.84 0.1.305254.3.579.2.1259 1949 Unknown [id number] 2.16.84 0.1.413612.3.579.2.125 1949 Unknown [id number] 2.16.84 0.1.157532.3.579.2.1259 1949 Unknown [id number] 2.16.84 0.1.743751.3.579.2.1259 1949 Unknown [id number] 2.16.84 0.1.388301.3.579.2.1259 1949 Unknown [id number] 2.16.84 0.1.984162.3.579.2.1259 1949 Unknown [id number] 2.16.840 .1.937198.3.579.2.1259 Unknown Standard [facility] Ins [id number] Unknown [id number] 2.16.8 40.1.602713.3.579.2.531 Unknown [id number] 2.16.8 40.1.340199.3.579.2.531 Unknown [id number] 2.16.8 40.1.401587.3.579.2.531 Social History Date Type Detail Facility Unknown if ever smoked [employer] Other Start: 02-05-2024 End: 04-17-2024 Sex Assigned At [facility] Start: 1950 Sex Assigned At Male F [facility] Start: 07-09-2018 End: 02-29-2024 Tobacco smoking status MAIS Never smoked tobacco (finding) [facility] Tobacco smoking status [facility] Tobacco smoking consumption unknown [facility] Start: 02-05-2024 End: 04-17-2024 History of Social function [facility] National Score (1-100), lower number is lower risk 67 [facility] Start: 1950 Sex Assigned At Not on file [facility] Start: 02-29-2024 Tobacco use and exposure Smokeless tobacco non-user [facility] Start: 02-29-2024 Alcohol intake Ex-drinker (finding) [facility] Medical Equipment Procedure Code Equipment Code Equipment [...] Type Note Facility 06-26-2024 Note Cardiovascular Medic [facility] SUBJECTIVE Chief Complaint Patient presents with [...] with lymphedema. He follows with endocrinology in [place]. He has MILLER - this is unchanged. [...] is currently at a weightloss program at [facility]. He is seeing the sewer builder. 01/23/2023 He is down about 10lbs since [...] Obesity Sleep apnea Type 2 diabetes mellitus ([facility]) Complex regional pain syndrome type II of right lower limb Coronary arteriosclerosis in [place] artery Current use of insulin ([facility]) Dietary counseling and surveillance Past Medical History: Diagnosis Date CAD (coronary artery disease) DM type 2 (diabetes mellitus, type 2) ([facility]) HLD (hyperlipidemia) HTN (hypertension) Neuropathy ULISES [...] venlafaxine 37.5 mg (more content not included)... [facility] 06-26-2024 Note Patient here for 1 y ear follow up CAD, hypertension, and hyperlipidemia. Had lipid panel this past December. Had foot surgery last week. Denies chest pain, SOB, palpitations, and lightheadedness/syncope. 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 Review of Systems Cardiovascular: Positive for leg swelling (RLE). Musculoskeletal: Positive for joint pain. All other systems reviewed and are negative. [facility] 06-07-2024 History of Present illness Narrative [facility] Behavioral Medicine Group Session I have communicated my name and active licensure. The patient's identity and physical location were verified at the time of this visit. Either the patient or their legal wire rope sales representative has been informed of the risks and benefits of -- and alternatives to -- treatment through virtual visit and consents to proceed with the session remotely. The patient e-signed the Informed Consent for Psychological Evaluation & Care Form, and the behavioral health care insurance benefits, fees for service, emergency procedures, and the limits of confidentiality that may pertain with any given case were discussed with the patient. The patient was given a copy of the consent form on [employer]. The patient consented to a virtual visit and their location was confirmed. Patient location: [facility] confirmed Patient Name: Dong Whitmore CC#: [id number] Date of service: June 07, 2024 Subjective: [...] additional pain management education Britney Rodriguez, PhD [phone] documented in this encounter [facility] 05-23-2024 Note Patient Education Infectious Disease Cellulitis, [...] these instructions at home: Medicines ? Take hxtd-frv-yneglei and prescription medicines only as told by [...] provider. Document Revised: 07/07/2022 Document Reviewed: 07/07/2022 [place] Patient Education ? 2022 4 the stars. [facility] 05-13-2024 Note Patient Education Endocrinology [...] changing your diet, or holidays. ? New hams-mgi-qujixxb or prescription medicines. ? Illness, stress, or [...] sure you disc (more content not included)... [facility] 05-06-2024 Note HNO ID: [id number] Author: MORGAN TRINIDAD, Therapist Service: ? Author Type: Therapist Type: Progress Notes Filed: 05/07/2024 08:20 Note Text: [facility] Psychological Evaluation May 06, 2024 Dong Whitmore [place]#: [id number] I have communicated my name and active licensure. The patient's identity and physical location were verified at the time of this visit. Either the patient or their legal wire rope sales representative has been informed of the risks and benefits of -- and alternatives to -- treatment through virtual visit and consents to proceed with the session remotely. The patient e-signed the Informed Consent for Psychological Evaluation AND Care Form, and the [facility] health care insurance benefits, fees for service, emergency procedures, and the limits of confidentiality that may pertain with any given case were discussed with the patient. The patient was given a copy of the consent form on [employer]. The patient consented to a virtual visit and their location was confirmed. Patient location: [place], [place] CPT Code: 8280186 Virtual Psych Diagnotic Eval Appointment Start: 9 AM This 73 year old retired for 15 years (he was having some medical problems, but they offered an early [place] [facility] package that was attractive at the time) male lives with his in [place], [place]. 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 He was referred by Chiqui Robles MD for psychological evaluation in the context of chronic pain. This consultation was shared with the referral source via the [facility] electronic medical record. He believes the reason [...] needed. pioglitazone (ACT (more content not included)... [facility] 04-24-2024 Note HNO ID: [id number] Author: CHIQUI ROBLES MD Service: ? Author Type: Physician Type: Progress Notes Filed: 04/24/2024 11:26 Note Text: [facility] STAFF PHYSICIAN NOTE OF PERSONAL INVOLVEMENT IN CARE IMPRESSION: Complex regional pain syndrome Adjustment Disorder Tried multiple injections, procedures, surgeries. No benefit Tried SCS and recently DRG without success. Discussed ketamine PLAN: Ketamine infusions Consider scrambler therapy Psych psychology Memantine 5mg Psychotherapy Add-on Progress Note Due to medical condition and comorbid psychological and behavioral concerns - psychotherapy was utilized during the visit. Rbgy-xb-usdj time: [id number] (16-37 mins) actual time spend in psychotherapy [...] which included preparing to see the patient, jgho-bx-zcla patient care, completing clinical documentation, performing a medically appropriate examination, and counseling and educating the patient/family/caregiver. As noted, the patient's clinical situation is complex and serious with significant comorbidity of pain and functional limitations. This requires higher levels of time, intensity, and expense with longitudinal care and support. STAFF PHYSICIAN:: Chiqui Robles MD DATE of SERVICE: 04/24/2024 [facility] 04-24-2024 History of Present illness Narrative [facility] STAFF PHYSICIAN NOTE OF PERSONAL INVOLVEMENT IN CARE IMPRESSION: Complex regional pain syndrome Adjustment Disorder Tried multiple injections, procedures, surgeries. No benefit Tried SCS and recently DRG without success. Discussed ketamine PLAN: Ketamine infusions Consider scrambler therapy Psych psychology Memantine 5mg Psychotherapy Add-on Progress Note Due to medical condition and comorbid psychological and behavioral concerns - psychotherapy was utilized during the visit. Iayn-rt-kjjm time: 47590 (16-37 mins) actual time spend in psychotherapy [...] which included preparing to see the patient, fvhd-bp-hzbd patient care, completing clinical documentation, performing a medically appropriate examination, and counseling and educating the patient/family/caregiver. As noted, the patient's clinical situation is complex and serious with significant comorbidity of pain and functional limitations. This requires higher levels of time, intensity, and expense with longitudinal care and support. STAFF PHYSICIAN:: Chiqui Robles MD DATE of SERVICE: 04/24/2024 [facility] [place] April 24, 2024 This is a face [...] Parish Tucker MD documented in this encounter [facility] 04-24-2024 Note HNO ID: [id number] Author: PARISH RIOS MD Service: ? Author Type: Resident Type: Progress Notes Filed: 04/24/2024 11:26 Note Text: [facility] [place] April 24, 2024 This is a face [...] Memantine Pain psychology consult Parish Tucker MD [facility] 03-21-2024 Telephone encounter Note Spoke with patient and notified him of provider recommendations. Verbalized understanding. Emilee So RN [facility] 03-21-2024 Miscellaneous Notes Spoke with patient and notified him of provider recommendations. Verbalized understanding. Emilee So RN Ok per Dr Araujo to proceed with trial - still recommending to keep appt with ID Spoke with patient at request of mill order scheduler as patient has questions about referral to infectious disease. Patient states that he spoke with his PCP, Dr. Hickman ([phone]) who spoke with Dr. Vega in Infectious disease at [facility]. Dr. Hickman ordered lab work at [...] Emilee So RN documented in this encounter [facility] 03-21-2024 Telephone encounter Note Ok per Dr Mekhail to proceed with trial - still recommending to keep appt with ID [facility] Work Phone: 03-19-2024 Telephone encounter Note Spoke with patient at request of mill order scheduler as patient has questions about referral to infectious disease. Patient states that he spoke with his PCP, Dr. Hickman ([phone]) who spoke with Dr. Vega in Infectious disease at [facility]. Dr. Hickman ordered lab work at [...] move forward as planned. Emilee So RN [facility] 03-15-2024 Note Microbiology PROCEDURE: Blood Culture Charcoal [R1] SOURCE: Blood BODY SITE: COLLECTED DATE/TIME: 03/08/2024 08:30 EDT RECEIVED DATE/TIME: 03/08/2024 09:02 EDT START DATE/TIME: 03/08/2024 09:02 EDT FREE TEXT SOURCE: michel Hickman MD, Haider Hickman MD, Haider Bee FINAL REPORTS Final Report [] Verified Date/Time: 03/15/2024 12:00 EDT No growth at 7 days. Performing Locations R1: This test was performed at: [facility], [address] [place] [address], [id number] , , [facility] Comment on above: Performed By: #### 1 [id number] #### [facility] [address] [place] [id number] 03-15-2024 Note Microbiology PROCEDURE: Blood Culture Charcoal [...] Locations R1: This test was performed at: [facility], [address] [place] [address], [phone]- , , [facility] Comment on above: Performed By: #### 1 [id number] #### [facility] [address] [place] [phone] 02-29-2024 Instructions Senthil Giraldo MD - 02/29/2024 1:38 PM EDT - Right DRG trial - Obtain psychological evaluation report (patient reports he just had this done ~two months ago) and send to [facility] - ID consult - Rule out infectious risk with due to the dermatitis. - Follow up: Return to clinic for the above procedure documented in this encounter [facility] 02-29-2024 Note HNO ID: [id number] Author: HERBERTH ARAUJO MD, PhD Service: ? Author Type: Physician Type: Progress Notes Filed: 03/18/2024 19:05 Note Text: [facility] [facility] Pain Management Department New Patient Consultation Referring Physician: SELF Chief Complaint: Right third toe pain SUBJECTIVE: Dong Whitmore is a 73 year old male with a pertinent past medical history of diabetes who presents to [facility] Pain Management Center for the evaluation of right third toe pain. 15-year history of right third toe pain. He notes that over this time the pain has become increasingly severe has caused him significant discomfort and suffering. He has been to many specialists in the [facility] area-over the course of the past 15 [...] depression 10-14 Mo (more content not included)... [facility] 02-29-2024 History of Present illness Narrative Images from the original note were not included. [facility] Pain Management Department New Patient Consultation Referring Physician: SELF Chief Complaint: Right third toe pain SUBJECTIVE: Dong Whitmore is a 73 year old male with a pertinent past medical history of diabetes who presents to [facility] Pain Management Center for the evaluation of right third toe pain. 15-year history of right third toe pain. He notes that over this time the pain has become increasingly severe has caused him significant discomfort and suffering. He has been to many specialists in the [facility]-over the course of the past 15 [...] history of diabetes who presents to [facility] Management Center for the evaluation of right third toe pain. He describes a 15-year history of right third toe pain. He notes that over this time the pain has become increasingly severe has caused him significant discomfort and suffering. He has been to many specialists in the [facility] area-over the course of the past 15 [...] done ~two months ago) and send to [facility] Pain Management Center - ID consult - [...] via electronic record, fax, or mail. Senthil Giralod MD February 29, 2024 Attending note: doran findings were confirmed. I discussed with resident physician and the patient, was present for procedure/visit. Plan is as outlined. ELECTRONIC SIGNATURE, Herberth Araujo MD, PhD documented in this encounter [facility] 02-06-2024 Telephone encounter Note Called and spoke to patient. Gave him this message from Dr. Singletary: I'd suggest seeking an appointment with the following doctors who perform DRG implantation: Dr. Carlisle, Dr. Araujo, Dr. Dan, Dr. Cortés Patient voiced understanding. [facility] 02-06-2024 Miscellaneous Notes Called and spoke to [...] giving him the number to schedule at [facility] to discuss DRG? I'd suggest seeking an appointment with the following doctors who perform DRG implantation: Dr. Carlisle, Dr. Araujo, Dr. Dan, Dr. Moo Mcwilliams and Dr. Kamara may do DRG - I'm not sure. Thanks Lela! ----- Message ----- From: Livia Lester PA-C Sent: 02/05/2024 2:07 PM EDT To: Francoise Singletary MD No one on this side of [facility] that I know of does DRG so, [...] I know who do DRG are at [facility]. How do we refer him there? From what I remember, Truman Melendez, Ni, and Moo do DRG - do you know of anyone else? documented in this encounter [facility] 02-06-2024 Telephone encounter Note ----- Message from Francoise Singletary MD sent at 02/05/2024 3:12 PM EDT ----- Do you mind calling him and giving him the number to schedule at [facility] to discuss DRG? I'd suggest seeking an appointment with the following doctors who perform DRG implantation: Dr. Carlisle, Dr. Araujo, Dr. Dan, Dr. Moo Mcwilliams and Dr. Kamara may do DRG - I'm not sure. Thanks Lela! ----- Message ----- From: Livia Lester PA-C Sent: 02/05/2024 2:07 PM EDT To: Francoise Singletary MD No one on this side of [facility] that I know of does DRG so, [...] - do you know of anyone else? [facility] 02-05-2024 Instructions Francoise Singletary MD - 02/05/2024 1:01 PM EDT Thank you for taking the time to come and see me today! Please schedule an appointment for: [facility] Consult Please follow up with [facility] Neurology and Podiatry Please send all of your Podiatry, Neurology, and Pain Management records to us I will refer you to a provider who performs DRG to discuss this Please come back to see me as needed documented in this encounter [facility] 02-05-2024 History of Present illness Narrative Images from the original note were not included. [facility] Pain Management Department Consultation Date: February 02, [...] The patient has seen other pain providers. [facility] Neurology OV 02/01/22 Assessment and Plan 71 [...] has been to many specialists in the [facility] area-over the course of the past 15 [...] I noted before, he appears today while [facility] was down, and I not have [...] will refer him to a doctor at [facility] for consideration of DRG and to discuss the risks, benefits, alternatives. Diagnostics/Referrals: -Chronic Pain Recovery Program referral Referral to [facility] podiatry, neurology for second opinions 2. Pharmaceuticals: [...] Marital Status: Unknown Medical Decision Making The [facility] EMR was reviewed during the visit including: [...] the shared EMR documented in this encounter [facility] 02-05-2024 Note HNO ID: [id number] Author: FRANCOISE SINGLETARY MD Service: ? Author Type: Physician Type: Progress Notes Filed: 02/05/2024 15:14 Note Text: [facility] Pain Management Department Consultation Date: February 02, [...] The patient has seen other pain providers. [facility] Neurology OV 02/01/22 Assessment and Plan 71 [...] has been to many specialists in the [place] area-over (more content not included)... [facility] 01-01-2024 Note [id number] [facility] 09-11-2023 Evaluation note Encounter Date [...] 6.9% 2. Blood glucose levels according to PollitoIngles 3 cgm download 08/29/23-09/11/23 : Avg glucose [...] Current use of insulin (ICD-10 - Z79.4) [employer] Other 11-16-2023 Evaluation note* Encounter Date Diagnosis Assessment Notes Treatment Notes Treatment Clinical Notes Aug, Cellulitis of right lower extremity (ICD-10 - L03.115) I did thoroughly review all the studies from [place]. I do not have any images to [...] include weight loss exercise and compression therapy. [employer] Other 09-01-2023 Evaluation note* Encounter Date Diagnosis [...] He was given a no cut Grif E Commerce Web Developer to try and a brochure to buy them online. We discussed the Novolog pen and that he is to use it if his BG before a meal is greater than 150. He was able to dial the pen and knows how to put the pen needle on and deliver the dose. 30 minutes were spent educating the patient by Kamlesh Sparrow RN, [facility]. [employer] Other 05-30-2023 Evaluation note* Encounter Date Diagnosis [...] February, Metabolic syndrome X (ICD-10 - E88.81) [employer] Other 05-09-2023 Evaluation note* Encounter Date Diagnosis [...] last visit, continue with weight loss efforts [employer] Other 04-14-2023 Evaluation note* Encounter Date Diagnosis [...] the following goals: Add flavors to vegetables [employer] Other 03-30-2023 Evaluation note* Encounter Date Diagnosis [...] Dec, Metabolic syndrome X (ICD-10 - E88.81) [employer] Other 03-23-2023 NoteCARDIAC STRESS TEST Requesting Physician: [...] interpreted and reported nuclear myocardial perfusion imaging.[id number]* Encounter Date Diagnosis Assessment Notes [...] following goals: 1) Increase vegetables at dinner [employer] Other 02-14-2023 Evaluation note* Encounter Date Diagnosis [...] him and his by Kamlesh Sparrow RN, [facility]. Reviewed cgm download 11/08/22-11/20/22: Avg glucose 171. >250-1%, >180-30%, 70-180-69%, <70-0%, <540%. CV 15..2%. 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 6. Prescriptions: Acarbose sent to [facility]. Sample baylee 2 cgm [...] Baylee 2 sensor and an office owned, [employer] [place]. His phone was not compatible with Baylee 2 or 3, or DexBioMetric Solution G6. He previously wore the Baylee 14 day system and did not need training on applying the device. I did train him on the use of the reader. He was vgiven samples of Grif Occupational Therapist'S Assistant and Skin Tac to help keep the device in place. 45 minutes were spent educating the patient by Kamlesh Sparrow RN, [facility]. [employer] Other 01-10-2023 Evaluation note* Encounter Date Diagnosis [...] program2) Try roasted cronin peppers (recipe provided) [employer] Other [id number] NotePROCEDURE: XR FOOT RT MIN 3 VIEWS [...] Electronically authenticated by: BRITTNY MORALES Date: 2022-08-19 06:17[facility]11-02-2022 Evaluation note* Encounter Date Diagnosis Assessment Notes [...] nuts or cheese + crackers -Only likes tristanian cheese,-Recommended 15g or less for snacks; so [...] likes those-Increase vegetable intake-Vegetables: corn, peas, carrots [employer] Other 10-19-2022 Evaluation note* Encounter Date Diagnosis [...] referral to Dr. Kelley for weight management [employer] Other 08-31-2022 Evaluation note* Encounter Date Diagnosis [...] and his would cook it for him [employer] Other 07-14-2022 Evaluation note* Encounter Date Diagnosis [...] improved glycemia. Pt would likek referral to sewer builder. Note pt has intolerance to glp1 class [...] of glucose/bp control to prevent further nephropathy [employer] Other 01-13-2022 Evaluation note* Encounter Date Diagnosis [...] medication issues. 6. Prescriptions: Pioglitazone sent to [facility]. Oct, Hyperlipidemia, unspecified hyperlipidemia type (ICD-10 - [...] brochure given today. Recommend call if interested. [employer] Other 10-13-2021 Evaluation note* Encounter Date Diagnosis Assessment Notes Treatment Notes Treatment Clinical Notes Jul, SANTANA (nonalcoholic steatohepatitis) (ICD-10 - K75.81) Jul, Other [employer] INDICATED ABOVE F/U HERE PRN [employer] Other Evaluation noteNo InformationNort [employer] Other Evaluation noteNo assessment information available [facility] Work Phone: Evaluation note* Diagnosis Chronic toe pain, right foot- Primary 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, not stated as uncontrolled Class 3 severe obesity with serious comorbidity and body mass index (BMI) of 40.0 to 44.9 in adult, unspecified obesity type (HCC) documented in this encounter [facility] note* Diagnosis Chronic toe pain, right foot- [...] right lower limb documented in this encounter [facility] note* Diagnosis Adjustment disorder with depressed mood- Primary Complex regional pain syndrome type II of right lower limb Chronic toe pain, right foot Class 3 severe obesity with serious comorbidity and body mass index (BMI) of 40.0 to 44.9 in adult, unspecified obesity type (HCC) documented in this encounter [facility] note* Diagnosis Adjustment disorder with depressed mood- Primary Complex regional pain syndrome type II of right lower limb Chronic toe pain, right foot documented in this encounter [facility] note* Diagnosis Adjustment disorder with depressed mood- Primary Complex regional pain syndrome type II of right lower limb Chronic toe pain, right foot documented in this encounter [facility] general Narrative - Reported* Type Description [...] first metatarsal 11-16-18 Hospitalization History see above [employer] Other History general Narrative - Reported* Type [...] Foot Surgery 10/27/2021 Hospitalization History see above [employer] Other History general Narrative - Reported* Type [...] Foot Surgery 10/27/2021 Hospitalization History see above [employer] Other Summary Purpose Family History No Family [...] Specialty Diagnoses / Procedures Referred By Segundo joshua Referred To Contact Diagnoses Complex regional pain syndrome type II of right lower limb Chronic toe pain, right foot Class 3 severe obesity with serious comorbidity and body mass index (BMI) of 40.0 to 44.9 in adult, unspecified obesity type (HCC) Procedures PROVIDER ORDERED FOLLOW UP OFFICE/OUTPATIENT COUNTS INCLUDE 234 BEDS AT THE [facility] MDM 60 MINUTES Chiqui Robles MD [address] [place] [address] Referral ID Status Reason Start Date Expiration Date Visits Requested Visits Authorized [id number] Authorized PCP Requested Referral 06/25/2024 04/24/2025 1 1 Specialty Diagnoses / Procedures Referred By Segundo joshua Referred To Contact Infectious Diseases Diagnoses Dermatitis of lower extremity Procedures CONSULT TO INFECTIOUS DISEASES OFFICE/OUTPATIENT [facility] 60 MINUTES Herberth Araujo MD, PhD [address] [place] [address] Referral ID Status Reason Start Date Expiration Date Visits Requested Visits Authorized [id number] Authorized PCP Requested Referral 02/29/2024 02/28/2025 1 1 Specialty Diagnoses / Procedures Referred By Contac t Referred To Contact Podiatry Diagnoses Chronic toe pain, right foot Painful diabetic neuropathy (HCC) Procedures CONSULT TO PODIATRY OFFICE/OUTPATIENT [facility] 60 MINUTES Francoise Singletary MD [address] [phone] Referral ID Status Reason Start Date Expiration Date Visits Requested Visits Authorized [id number] Authorized PCP Requested Referral 02/05/2024 02/04/2025 1 1 Specialty Diagnoses / Procedures Referred By Contac t Referred To Contact Neurology Diagnoses Chronic toe pain, right foot Painful diabetic neuropathy (HCC) Procedures CONSULT TO NEUROLOGY OFFICE/OUTPATIENT [facility] 60 MINUTES Francoise Singletary MD [address] [phone] Referral ID Status Reason Start Date Expiration Date Visits Requested Visits Authorized [id number] Authorized PCP Requested Referral 02/05/2024 02/04/2025 1 1 Specialty Diagnoses / Procedures Referred By Contac t Referred To [facility] [place] Diagnoses Chronic toe pain, right foot Painful diabetic neuropathy (HCC) Procedures CONSULT TO [facility] (CHRONIC PAIN) OFFICE/OUTPATIENT [facility] 60 MINUTES Francoise Singletary MD [address] [place] [address] Referral ID Status Reason Start Date Expiration Date Visits Requested Visits Authorized [id number] Pending Review PCP Requested Referral 02/05/2024 02/04/2025 1 1 Additional Source Comments REASON FOR VISIT (unrecogniz ed section and content) Reason Comments Consult Rt foot Reason Comments Established Patient Medication Update Reason Comments Nurse Triage Call Reason Comments New Patient Specialty Diagnoses / Procedures Referred By Contac t Referred To [facility] [place] Diagnoses Complex regional pain syndrome type II of right lower limb Chronic toe pain, right foot Class 3 severe obesity with serious comorbidity and body mass index (BMI) of 40.0 to 44.9 in adult, unspecified obesity type (HCC) Procedures CONSULT TO [facility] (CHRONIC PAIN) OFFICE/OUTPATIENT [facility] 60 MINUTES Herberth Araujo MD, PhD [address] [place] [address] Referral ID Status Reason Start Date Expiration Date Visits Requested Visits Authorized [id number] Pending Review PCP Requested Referral 04/03/2024 04/03/2025 [...] content) DATE CREATED AUTHOR [facility]/20/2023 [facility] DATE CREATED AUTHOR AUTHOR'S ORGANIZ ATION 11/22/2023 [facility] DATE CREATED AUTHOR AUTHOR'S ORGANIZ ATION 12/15/2023 [facility] DATE CREATED AUTHOR AUTHOR'S ORGANIZ ATION 03/09/2024 [facility] DATE CREATED AUTHOR AUTHOR'S ORGANIZ ATION [facility]/16/2024 [facility] DATE CREATED AUTHOR AUTHOR'S ORGANIZ ATION 05/09/2024 [facility] DATE CREATED AUTHOR AUTHOR'S ORGANIZ ATION 06/02/2024 [facility] DATE CREATED AUTHOR AUTHOR'S ORGANIZ ATION 06/21/2024 Byrd Luiz [facility] DATE CREATED AUTHOR AUTHOR'S ORGANIZ ATION 06/28/2024 [facility] DATE CREATED AUTHOR AUTHOR'S ORGANIZ ATION 07/05/2024 [facility] dical Specialists EPIC Care Teams (unrecognized [...] September 11, 2023 End: September 11, 2023 Furniture Mover Driver Relationship Specialty Start Date End Date Miguelangel Mac MD [address] [place] [address] 1 [place] [address] Referring Pain Management 01/29/24 Furniture Mover Driver Relationship Specialty Start Date End Date Miguelangel Mac MD [address] [place] [address] 1 [place] [address] Referring Pain Management 01/29/24 Furniture Mover Driver Relationship Specialty Start Date End Date Miguelangel Mca MD [address] [place] [address] 1 [place] [address] Referring Pain Management 01/29/24 Furniture Mover Driver Relationship Specialty Start Date End Date Miguelangel Mac MD [address] [place] [address] 1 [place] [address] Referring Pain Management 01/29/24 Furniture Mover Driver Relationship Specialty Start Date End Date Haider Hickman MD [address] [place] [id number] PCP - General Family Medicine 03/26/24 Miguelangel Mac MD [address] [place] [address] Referring Pain Management 01/29/24 Furniture Mover Driver Relationship Specialty Start Date End Date Haider Hickman MD [address] [place] [id number] PCP - General Family Medicine 03/26/24 Miguelangel Mac MD [address] [place] [address] Referring Pain Management 01/29/24 Furniture Mover Driver Relationship Specialty Start Date End Date Haider Hickman MD [address] [place] [id number] PCP - General Family Medicine 03/26/24 Miguelangel Mac MD [address] [place] [address] Referring Pain Management 01/29/24 Furniture Mover Driver Relationship Specialty Start Date End Date Haider Hickman MD [address] [place] [phone] PCP - General Family Medicine 03/26/24 Miguelangel Mac MD [address] [place] [address] Referring Pain Management 01/29/24 Furniture Mover Driver Relationship Specialty Start Date End Date Haider Hickman MD [address] [place] [id number] PCP - General Family Medicine 03/26/24 Miguelangel Mac MD [address] [place] [address] 1 [address] [place] [id number] Referring Pain Management 01/29/24 Goals (unrecognized section [...] or prosecute any alcohol or drug abuse patient.[facility] the event this information is protected by the Federal Confidentiality of Alcohol and Drug Abuse Patient Records regulations: The Federal rules restrict any use of the information to criminally investigate or prosecute any alcohol or drug abuse patient.[facility] the event this information is protected by the Federal Confidentiality of Alcohol and Drug Abuse Patient Records regulations: The Federal rules restrict any use of the information to criminally investigate or prosecute any alcohol or drug abuse patient.[facility] the event this information is protected by the Federal Confidentiality of Alcohol and Drug Abuse Patient Records regulations: The Federal rules restrict any use of the information to criminally investigate or prosecute any alcohol or drug abuse patient.[facility] the event this information is protected by the Federal Confidentiality of Alcohol and Drug Abuse Patient Records regulations: The Federal rules restrict any use of the information to criminally investigate or prosecute any alcohol or drug abuse patient.[facility] the event this information is protected by the Federal Confidentiality of Alcohol and Drug Abuse Patient Records regulations: The Federal rules restrict any use of the information to criminally investigate or prosecute any alcohol or drug abuse patient.[facility] the event this information is protected by the Federal Confidentiality of Alcohol and Drug Abuse Patient Records regulations: The Federal rules restrict any use of the information to criminally investigate or prosecute any alcohol or drug abuse patient.[facility] the event this information is protected by the Federal Confidentiality of Alcohol and Drug Abuse Patient Records regulations: The Federal rules restrict any use of the information to criminally investigate or prosecute any alcohol or drug abuse patient.[facility] Center[facility] the event this information is protected by the Federal Confidentiality of Alcohol and Drug Abuse Patient Records regulations: The Federal rules restrict any use of the information to criminally investigate or prosecute any alcohol or drug abuse patient.[facility] FOR RECORDS PERTAINING TO PATIENTS WHO ARE [...] BE BASED ON THE PRIMARY CLINICAL RECORDS. [facility] [employer] [facility]. provides no warranty or guarantee of the accuracy or completeness of information in this document.
--- NOTE | 2024-07-08 09:05 | CA_ITS ---
Patient Name: LUISITO WHITMORE MR#: [id number] : 1950 Exam Date: 07/08/2024 Ordering Doctor: MARY APARICIO CNP ECHOCARDIOGRAM REPORT PROCEDURE: CA ECHO DOPPLER COMPLETE INDICATIONS: CAD COMPARISON: None. DESCRIPTION: COMPLETE ECHOCARDIOGRAM Real-time transthoracic echocardiography with 2D, M-mode, spectral and color flow Doppler performed. QUALITY: Technical quality was adequate. LEFT VENTRICLE: Normal chamber size. Severe concentric left ventricular hypertrophy. LV EF: Global left ventricular systolic function is hyperdynamic; visually estimated ejection fraction is 65 to 70%. No obvious wall motion abnormalities. DIASTOLIC: Unable to assess diastolic function. ATRIAL SEPTUM: Inadequately seen LEFT ATRIUM: Mild dilatation. RIGHT ATRIUM: Moderate dilatation. RIGHT VENTRICLE: Moderate dilatation. Normal right ventricular systolic function. TRICUSPID VALVE: Normal mobility and thickness. No stenosis with trivial regurgitation. No evidence of pulmonary hypertension. RVSP 13mmHg MITRAL VALVE: Normal mobility and thickness. No evidence of mitral valve stenosis. There is no mitral annular calcification. Trivial mitral regurgitation. AORTIC VALVE: Normal trileaflet appearance. No visible sclerosis. Normal leaflet mobility. No evidence of aortic valve stenosis. No aortic regurgitation. AORTIC ROOT: Normal diameter and appearance. PULMONIC VALVE: Normal thickness and mobility. No stenosis. No regurgitation. PERICARDIUM: No evidence of pericardial effusion. IVC: Collapses with inspirations. Normal size. CONCLUSION: 1. Global left ventricular systolic function is hyperdynamic; visually estimated ejection fraction of 65 to 70% 2. The right ventricle is moderately dilated with normal systolic function 3. Biatrial dilatation 4. Severe left ventricular hypertrophy 5. Valves are poorly seen; no significant valvular abnormalities Adult Echocardiography Procedure Report Left Ventricle LVEDD (3.7 - 5.6 cm): 5.24 cm LVESD (2.2 - 4.0 cm): 2.93 cm LVIVS thickness (0.6 - 1.2 cm): 1.67 cm LVPW thickness (0.5 - 1.0 cm): 1.71 cm e': 0.11 m/s E - e': 5.12 LVOT Max Gradient: 3.00 mm[Hg] LVOT Area (cm2): 0.87 m/s Peak Velocity (LVOT): 0.87 m/s Mean Velocity (LVOT): 0.54 m/s LVOT Diameter 2.46 cm Left Ventricular Ejection Fraction: 66.85 % Left Atrium LA Volume Index (2D A2C): 50.87 ml/m2 Left Atrium Systolic Dimension: 4.89 cm Mitral Valve MV E to A Ratio: 1.05 Mitral Valve A-Wave Peak Velocity: 0.55 m/s Mitral Valve E-Wave Peak Velocity: 0.58 m/s Right Ventricle RV Internal Diastolic Dimension: 5.07 cm Aorta AO Root Diam: 3.86 cm Aortic Valve AoV Area (Peak Juvenal): 3.79 cm2, 3.79 cm2 AoV Area (VTI): 3.67 cm2, 3.67 cm2 Peak Velocity(Antegrade Flow): 1.09 m/s Peak Gradient(Antegrade Flow): 4.73 mm[Hg] Mean Velocity(Antegrade Flow): 0.74 m/s Mean Gradient(Antegrade Flow): 2.49 mm[Hg] Velocity Time Integral: 27.04 cm Tricuspid Valve Peak Velocity (Regurgitant Flow): 1.76 m/s, 1.51 m/s, 1.57 m/s Pulmonic Valve Mean Gradient: 2.49 mm[Hg] Mean Velocity: 0.75 m/s Peak Velocity: 1.03 m/s Peak Gradient: 4.25 mm[Hg] Right Atrium Right Atrium Systolic Pressure: 110.81 ml, 110.81 ml Dictated by: Pardeep Heard M.D. on 07/08/2024 at 13:29 Approved by: Pardeep Heard M.D. on 07/08/2024 at 13:32
[2024-07-08 09:59] LABS: Alanine Aminotransferase 28 U/L (16-63); Albumin Level 3.7 g/dL (3.4-5.0); Alkaline Phosphatase 86 U/L (46-116); Anion Gap 9.1; Aspartate Amino Transferase 19 U/L (15-37); BUN Creatinine Ratio 17.4; Bilirubin Total 0.5 mg/dL (0.2-1.0); Calcium 9.8 mg/dL (8.5-10.1); Carbon Dioxide 28.2 mmol/L (21.0-32.0); Chloride 103 mmol/L (98-107); Chol HDL Ratio 2.5; Cholesterol 128 mg/dL (<=200); Estimated GFR (African America 56 (>=60); Estimated GFR (Non-African Ame 46 (>=60); Globulin 3.7 g/dL; Glucose 102 mg/dL (74-106); HDL Cholesterol 51 mg/dL (40-60); Potassium 4.3 mmol/L (3.5-5.1); Sodium 136 mmol/L (136-145); Total Protein 7.4 g/dL (6.4-8.2); Triglycerides 115 mg/dL (<=150)
== END 2024-07-08 08:44 | disposition home or self-care (01) ==
PROVIDERS: PCP Family Medicine; Visit Provider Nurse Practitioner Family
DX: I25.10 Atherosclerotic heart disease of native coronary artery without angina pectoris (principal)
CPT/HCPCS: 36415; 80053; 80061; 85025; 93306

== ENCOUNTER 2024-07-15 12:19 | Outpatient (OUT) | payer MEDICARE, OTHER, SELFPAY ==
--- NOTE | 2024-07-15 12:22 | MR_ITS ---
[place] [id number] Patient Name: LUISITO WHITMORE MRN: [id number] date: 1950 Sex: M Assigned Patient Location: MRI Current Patient Location: MRI Accession/Order Number: [id number] Exam Date: 07/15/2024 12:38 Report Date: 07/16/2024 10:57 At the request of: MIHIR Blank APLING Procedure: MR shoulder LT wo con EXAM: MR shoulder LT wo con HISTORY: Left Shoulder Internal Derangement M24.812 COMPARISON: 05/24/2024 TECHNIQUE: MRI images obtained with multiple sequences. MRI of the left shoulder without contrast. Sequences obtained by standard department protocol. FINDINGS: Advanced degeneration at the acromioclavicular joint with joint effusion and surrounding capsular edema. Full-thickness tear of the distal supraspinatus tendon measuring 1.4 cm in width with 1.1 cm of retraction. Subacromial subdeltoid bursal fluid, consistent with bursitis. Teres minor is intact. Partial-thickness insertional tearing of the distal subscapularis tendon. Mild partial-thickness tearing of the distal infraspinatus tendon. Biceps tendon is intact and within the intertubercular groove. No labral detachment. No full-thickness chondral loss of the glenohumeral joint. No acute fractures. No left axillary adenopathy. MR/MR shoulder LT wo con IMPRESSION: 1. Full-thickness tear of the distal supraspinatus tendon measuring 1.4 cm in width with 1.1 cm of retraction. 2. Subacromial subdeltoid bursal fluid, consistent with bursitis. 3. Advanced degeneration of the acromioclavicular joint. 4. No acute fractures. Electronically authenticated by: SIMEON BAUER Date: 07/16/2024 10:57
--- OUTSIDE RECORDS SUMMARY | 2024-07-15 12:35 | XMS_ITS | CCD ---
Author Organization [facility] Care Team Providers Care Water Server Name Role Phone Joaquina Morgan Unavailable Aldo [...] JOHNSON ., DR SCARLET [place] Admitting Unavailable JOHNSON ., DR SCARLET [place] [...] SCARLET [place] Admitting Unavailable Eligio Soni Unavailable MD Daniel Everett Attending Provider [phone] MD Scarlet Johnson Primary Care Provider [phone] MD Eligio Soni Attending Provider MD Scarlet [...] Unavailable MEKHAIL, HERBERTH A Attending Unavailable MEKHAIL, HERBERHT A Admitting Unavailable Ross, Haider Bee Attending [...] Cefuroxime; Translations: [cefuroxime] Drug Allergy 06-09-20 Unknown [facility] (20 sources) celecoxib; Translations: [CELECOXIB] Drug Allergy 06-09-20 Unknown [facility] (20 sources) Diflunisal; Translations: [DIFLUNISAL] Drug Allergy 06-09-20 21 Unknown [facility] (20 sources) dulaglutide Drug Allergy 09-11-20 Unknown, g/i [facility] (20 sources) Ibuprofen Drug Allergy Unknown [employer] Other (20 sources) liraglutide; Translations: [LIRAGLUTIDE] Drug Allergy 11-25-19 stomach upset [facility] (20 sources) metFORMIN; Translations: [metFORMIN] Drug Allergy 06-09-20 stomach upset [facility] (20 sources) Naproxen; Translations: [NAPROXEN] Drug Allergy 06-09-20 Unknown [facility] (20 sources) Sulindac; Translations: [Clinoril] Drug Allergy 07-10-20 15 Unknown [facility] Repository (1 source) Cefuroxime Drug Allergy 07-13-20 16 [facility] (3 sources) celecoxib; Translations: [CeleBREX] Drug Allergy 07-10-20 15 [facility] (3 sources) liraglutide; Translations: [Victoza] Drug Allergy [facility] (1 source) metFORMIN Drug Allergy 06-15-20 17 [facility] (3 sources) Naproxen; Translations: [Naprosyn] Drug Allergy 07-10-20 15 [facility] (3 sources) NSAIDs; Translations: [NSAIDS (NON-STEROIDAL ANTI-INFLAMMATORY DRUG)] Drug allergy (disorder) 07-10-20 15 [facility] (3 sources) Povidone-Iodine; Translations: [Dolobid] Drug Allergy 07-10-20 15 [facility] (4 sources) Cephalosporins (Antibiotic); Translations: [Cephalosporins] Propensity to adverse reactions 05-29-20 18 Unknown Reaction [facility] (2 sources) Ibuprofen; Translations: [ibuprofen] Drug Allergy 09-11-20 [facility] (3 sources) Sulindac; Translations: [sulindac] Drug Allergy 06-09-20 [facility] (1 source) Cefuroxime Drug Allergy 09-11-20 [facility] (1 source) celecoxib Drug Allergy 09-11-20 [facility] (1 source) Diflunisal Drug Allergy 09-11-20 [facility] (1 source) dulaglutide Drug Allergy 09-11-20 [facility] (1 source) liraglutide Drug Allergy 09-11-20 [facility] (1 source) metFORMIN Drug Allergy 09-11-20 [facility] (1 source) Naproxen Drug Allergy 09-11-20 [facility] (9 sources) Non-steroidal anti-inflammatory agent Drug Intolerance 02-05-20 GI Upset [facility] (2 sources) Cefuroxime; Translations: [Cefuroxime Axetil] Drug Allergy [facility] Repository (2 sources) dulaglutide; Translations: [Trulicity] Drug Allergy [facility] (2 sources) Niacin; Translations: [niacin] Drug Allergy [facility] (2 sources) NSAIDs; Translations: [NSAIDs] Propensity to adverse reactions (disorder) [facility] (2 sources) rofecoxib; Translations: [Vioxx] Drug Allergy [facility] (1 source) rofecoxib; Translations: [ROFECOXIB] Drug Allergy 06-09-20 [facility] Repository Medications Current Medications Medication Drug Class(es) [...] tablet Orally Once a day Active [facility] Active memantine hydrochloride 10 mg oral tablet (5 sources) L-wnddad-J-aspartate Receptor Antagonist Start: 05-31-2024 take 1 tablet [...] 28, 2018 11:00pm take [facility] hours Metoprolol Tartrate 100 MG 1 tablet with food Orally Daily Active take 1 tablet by jatin every twenty-four hours Metoprolol Tartrate 50 MG 1 Tablet Orally Daily Active Nitro Sublingual 0.4 (20 sources) Nitro Sublingual 0.4 Sublingual As Directed Active nitroglycerin 0.4 mg sublingual tablet (9 sources) Nitrate Vasodilator Start: nitroglycerin sublingual (NITROQUICK) 0.4 mg SL tablet 04/19/2022 Active [facility] 0-Oqh-Ceg-Fish Oil (Fish Oil) 1,000 mg (120 mg-180 mg) Capsule (2 sources) Start: 018 [facility] 8-Rwg-Dvu-Fish Oil (Fish Oil) 1,000 mg (120 mg-180 [...] afternoon. 12/03/2023 Active take 1 tablet by [facility] every twenty-four hours Pioglitazone HCl 30 MG 1 tablet Orally Once a day Active take 2 tablets by [facility] every twenty-four hours Pioglitazone HCl 15 [...] Orally once a day Active FreeStyle [place] - (7 sources) FreeStyle [place] - use with baylee sensor SQ daily [...] Coronary arteriosclerosis; Translations: [Atherosclerotic heart disease of [place] coronary artery without angina pectoris] Onset: 12-30-2022 [...] deficiency, unspecified] Chronic Other aftercare (1 source) prison (current) use of aspirin; Translations: [LONG-TERM CURRENT USE OF ASPIRIN] Onset: 02-20-2023 Episodic Other aftercare (1 source) Other alf (current) drug therapy; Translations: [OTH GIS ANALYST CURRENT DRUG THERAPY] Onset: 02-20-2023 Episodic Other aftercare (6 sources) Long-term current use of insulin; Translations: [remote computer terminal operator (current) use of insulin] Episodic Other aftercare (1 source) remote computer terminal operator (current) use of insulin Episodic Other connective [...] [facility] Facility Office Visiton 06-26-2024 Follow-up visit [id number] Dong Whitmore 1950 M Date Provider Department Center 06/26/2024 [facility] Family History Problem Relation Age of Onset Coronary artery disease Other Diabetes Other Family Status - Relation Status Age at Other Level of Service:72937 LA OFFICE/OUTPATIENT ESTABLISHED MOD MDM 30 MIN Reason for Visit and Comments: Coronary Artery Disease [187] Hypertension [179739] Normal [facility] Ambulatory Visit Summaryon 0 05-31-2024 Ambulatory Visit [...] Hickman MD. This Is Your Medications List [facility] Prescription (Eric Prather, 5 years.) acarbose (acarbose [...] 30 mg Tab) potassium chloride (Potassium Chloride (Dsx-Jxhr-Aot M20) 20 mEq oral tablet, extended release) [...] Araceli BERMUDEZ MD Where: [facility] [address], [address] [place] [address]- Monday 3:30 PM EST With: Haider Hickman MD Where: [address] [address]- Monday 10:30 AM EST With: Araceli BERMUDEZ MD Where: [facility] [address], [address] [place] [address]- 2024 8:00 AM EDT With: Where: [facility] [place] [id number]- Medications What How Much When Why Instructions [...] Unchanged nitrog (more content not included)... Normal [facility] Family Medicine Office/Clini c Noteon 05-23-2024 Family [...] day(s), # 20 cap(s), Refills(s) 0, Pharmacy: [facility]/pharmacy #[id number], 169, cm, 05/22/24 14:52:00 EDT, Height/Length [...] Oral, BID (more content not included)... Normal [facility] Comment on above: Result Comment: Elec tronically [...] Hickman MD. This Is Your Medications List [facility] Prescription (Eric Prather, 5 years.) acarbose (acarbose [...] 30 mg Tab) potassium chloride (Potassium Chloride (Lxg-Nqre-Svt M20) 20 mEq oral tablet, extended release) [...] With: Kajal Freeman DPM Where: [facility] Monday 9:15 AM EDT With: Araceli BERMUDEZ MD Where: [facility] [address], [address] [place] [address]- Monday 3:30 PM EST With: Kristofer SCHUSTER, Haider Bee Where: [facility] [address] [address]- Monday 10:30 AM EST With: AIDAN SCHUSTER, Araceli Treadwell Where: [facility] [place] [address], [address] [place] [address]- 2024 8:00 AM EDT With: Where: [facility] [address] [address]- Medications What How Much When Why Instructions New clindamycin (clindamycin 300 mg oral cap) 1 Capsules By Mouth 2 times a day Cellulitis of leg BMI 40.0-44.9, adult Non-smoker Class 3 severe obesity due to excess calories with body mass index (BMI) of 40.0 to 44.9 in adult Duration: 10 Days Pickup at [facility]/pharmacy #[id number] Unchanged acarbose (acarbose 25 mg oral tablet) [...] Unchanged nitroglyce (more content not included)... Normal [facility] Medicine Office/Clini c Noteon 05-14-2024 Family [...] : Living will, Medical durable power of deputy county attorney Organ Donation Consent : Yes AidanDebra [...] Last Reviewed Dt/Tm: 05/13/2024 09:44:11 EDT Location: [facility] ; Anesthesia Minutes: 0 ; [...] Dt/Tm: 05/13/2024 09:44:11 (more content not included)... [facility] Comment on above: Result Comment: Elec tronically Signed By: Haider Hickman MD.br\Date and Time Signed: 05/14/24 10:23 EDT\.br\Electronically Co-Signed By: Debra Bermudez.br\Date and Time Co-Signed: 05/13/24 13:04 EDT OCTAVIOOVha 04-24-2024 CNOV Office Visit (NPRC21 ) DONG WHITMORE ([id number]) 1950 M Date Time Provider Department 04/24/24 9:00 AM CHIQUI ROBLES NPRC21 During your visit today, we recorded the following information about you: Pulse Blood pressure Weight Height 61/minute 122/89 122.5 kg 1.702 m Parish Rios MD 04/24/2024 11:26 AM Signed [facility] for Comprehensive Pain [facility] [place] April 24, 2024 This is a face [...] Camacho Desimir, MD 04/24/2024 11:26 AM Signed [facility] STAFF PHYSICIAN NOTE OF PERSONAL INVOLVEMENT IN CARE IMPRESSION: Complex regional pain syndrome Adjustment Disorder Tried multiple injections, procedures, surgeries. No benefit Tried SCS and recently DRG without success. Discussed ketamine PLAN: Ketamine infusions Consider scrambler therapy Psych psychology Memantine 5mg Psychotherapy Add-on Progress Note Due to medical condition and comorbid psychological and behavioral concerns - psychotherapy was utilized during the visit. Ocvk-ig-tppn time: 27771 (16-37 mins) actual time spend in psychotherapy [...] which included preparing to see the patient, dcai-uw-yabn patient care, completing clinical documentation, performing a medically appropriate examination, and counseling and educating the patient/family/caregiv er. As noted, the patient's clinical situation is complex and serious with significant comorbidity of pain and functional limitations. This requires higher levels of time, intensity, and expense with longitudinal care and support. STAFF PHYSICIAN:: Chiqui Robles MD DATE of SERVICE: 04/24/2024 Referring Provider: HEREBRTH ARAUJO [[id number]] Allergies As of Date: 04/24/2024 Noted Allergy [...] TO [facility] (CHRONIC PAIN) [7286984] Order #: [id number]: 1 PAIN RECOVERY FOLLOW UP ORDER [9060040] Order #: [id number]: 1 FUTURE PROVIDER ORDERED FOLLOW UP [8912063] Order #: [id number]: 1 FUTURE memantine (NAMENDA) 5 mg tabletTake 1 tablet by mouth once daily.Disp: 30 tabletRfl: 3 CONSULT TO KETAMINE FOR CHRONIC PAIN [9070] Order #: [id number]: 1 FUTURE Prescriptions as of 04/24/2024 - memantine (NAMENDA) 5 mg tablet Take 1 tablet by mouth once daily. - aspirin, enteric coated (ASPIRIN, ENTERIC COATED) 81 mg EC tablet Take 81 mg by mouth once daily. - fi (more content not included)... Normal [facility] BRIEF OP NOTon 04-03-2024 BRIEF OP NOT HNO ID: [id number] Author: CAPRICE DOWNING MD Service: Pain Management Author Type: Fellow Type: Brief Op Note Filed: 04/03/2024 10:35 Note Text: BRIEF OPERATIVE / PROCEDURE NOTE LOG ID: [id number] SURGERY/PROCEDURE DATE: 04/03/2024 PROCEDURE START TIME: 0959 PROCEDURE END TIME: 1030 PRE-OP/PRE-PROCEDURE DIAGNOSIS: Chronic toe pain, right foot [M79.674, G89.29] Complex regional pain syndrome type II of right lower limb [G57.71] POST-OP/POST-PROCEDURE DIAGNOSIS: Chronic toe pain, right foot [M79.674, G89.29] Complex regional pain syndrome type II of right lower limb [G57.71] SURGEON(S)/PROCEDURALI ST(S) AND FLOOR LAYER(S): Surgeon(s) and Role: * Herberth Araujo MD, PhD - Primary * Caprice Downing MD No Additional Staff SURGERY/PROCEDURE(S): Attempted Right L4 and L5 Dorsal Root Ganglion Stimulator ANESTHESIA: Anxiolysis and Local anesthetic FINDINGS: None ESTIMATED BLOOD LOSS: Minimal SPECIMENS: None COMPLICATIONS: None Caprice Downing MD Pain Medicine Fellow April 03, 2024 Normal [facility] NURSING PROGon 04-03-2024 NURSING PROG HNO ID: [id number] Author: CAYETANO ROSALES RN Service: Nursing Author Type: Registered Nurse Type: Nursing Progress Note Filed: 04/08/2024 15:32 Note Text: Summary: Follow up phone call Follow up phone call made regarding outcome of procedure. No answer voicemail left - The patient was instructed to call [phone] with the percentage of pain relief and what activities have improved. Psonar message also sent. [facility] NURSING PROG HNO ID: [id number] Author: SURINDER LARES RN Service: Nursing Author Type: Registered Nurse Type: Nursing Progress Note Filed: 04/09/2024 10:09 Note Text: Summary: Post Procedure Call Patient left voice mail. Team was unable to finish procedure due to patient was unable to stay still. No pain relief noted. Surinder Lares RN April 09, 2024 [facility] NURSING PROG HNO ID: [id number] Author: EMILEE HYDE RN Service: ? Author Type: Registered Nurse Type: Nursing Progress Note Filed: 04/03/2024 10:45 Note Text: Dr. Marian Downing (fellow) discusses reason why procedure was aborted today. Other options for pain management was discussed with patient and . Normal [facility] OPERATIVE NOon 04-03-2024 OPERATIVE NO HNO ID: [id number] Author: HERBERTH ARAUJO MD, PhD Service: Pain Management Author Type: Physician Type: Operative Report Filed: 04/03/2024 20:14 Note Text: OPERATIVE/PROCEDURE REPORT : LOG ID: [id number] SURGERY/PROCEDURE DATE: 04/03/2024 INCISION/PROCEDURE START TIME: 9:59 [...] Dorsal Root Ganglion Stimulator SURGEON(S)/PROCEDURALI ST(S) AND FLOOR LAYER(S): Surgeon(s) and Role: * Herberth Araujo MD, [...] chronic pain recovery program. ELECTRONIC SIGNATURE, Herberth Aarujo MD, PhD Normal [facility] HISTORY PHYSICALon HISTORY PHYSICAL HNO ID: [id number] Author: HERBERTH ARAUJO MD, PhD Service: Pain Management Author Type: Physician Type: H&P Filed: 04/03/2024 09:33 Note Text: PROCEDURE EVALUATION AND HISTORY AND PHYSICAL EXAM SUBJECTIVE: Dong Whitmore is a 73 year old man who presents to [facility] for Right L4 and L5 Dorsal Root Ganglion Stimulator Trial. This is his first (1) procedure. Focused Review of Systems: PAIN: Denies any contraindications to the procedure including coagulopathy, infection, recent cerebral/myocardial infarct, and hemodynamic instability. He states he is NPO and has a set key driver for return home. Current Outpatient Medications [...] the patient's condition since the last [facility] visit: No Provisional Diagnosis: Chronic toe pain, right foot [M79.674, G89.29] Complex regional pain syndrome type II of right lower limb [G57.71] Planned Procedure: Right L4 and L5 Dorsal Root Ganglion Stimulator Trial Caprice Downing MD Pain Medicine Fellow April 03, 2024 Herberth Araujo MD, PhD Normal [facility] NURSING PROGon 04-01-2024 NURSING PROG HNO ID: [id number] Author: GILBERTO BAUTISTA, DENISE Service: ? Author [...] 2 hours before the appointment. 2. A set key driver must be present who can drive you home. If you are coming by medical transport, you must have a responsible person other than the ocean transportation intermediary with you. 3. Do you take any [...] or cannot make the appointment by calling [phone] (Option 2). Normal [facility] Ambulatory Visit Summaryon 0 03-26-2024 Ambulatory Visit [...] 40 mg Tab) potassium chloride (Potassium Chloride (Vjv-Imhk-Vos M20) 20 mEq oral tablet, extended release) [...] Appointments Monday 9:30 AM EDT With: Where: [facility] [place] Invalid Interpretation Code [address], [address] [place] [address]- \.br \ Monday 2:15 PM EST \.br\ With: Kristofer SCHUSTER, Haider Bee\.br\ Where: [facility] Office/Clini c Noteon 03-26-2024 Family [facility] Office/Clinic Note HPI Staff Dong is a [...] years., Suppl (more content not included)... Normal [facility] Comment on above: Result Comment: Elec tronically [...] numbers. This can be done either in [place]ino ([place] or metric measurements. Note that charts and online BMI calculators are available to help you find your BMI quickly and easily without having to do these calculations yourself. To calculate your BMI in Filipino ([place] measurements: 1. Measure your weight in [...] for Disease Control and Prevention: www.cdc.gov ? [place] Heart Association: www.heart.org ? National Heart, Lung, [facility] [place]: www.nhlbi.nih.gov Summary ? Body mass index (BMI) is a number that is calculated from a person's weight and height. ? BMI may help estimate how much of a person's weight is composed of fat. BMI can help identify those who may be at higher risk for certain medical problems. ? BMI can be measured using Filipino measurements or metric measurements. ? BMI charts are used to identify whether you are underweight, normal weight, overweight, or obese. This information is not intended to replace advice given to you by your health care provider. Make sure you discuss any questions you have with your health care provider. Document Revised: 06/17/2020 Document Reviewed: 04/24/2020 [employer] Patient Education ? 2022 [employer] [facility] Sona 03-19-2024 HERRERAN Telephone (PAINMN) DONG WHITMORE ([id number]) 1950 M Date Time Provider Department 03/19/24 HERBERTH ARAUJO During your visit today, we recorded the following information about you: Emilee So, RN 03/19/2024 1:32 PM Signed Spoke with patient at request of environmental solutions engineer as patient has questions about referral to infectious disease. Patient states that he spoke with his PCP, Dr. Hickman ([phone]) who spoke with Dr. Vega in Infectious disease at [facility]. Dr. Hickman ordered lab work at [...] Status:Closed by EMILEE SO on 03/21/24 Normal [facility] BMPon 03-08-2024 Anion gap [Moles/Vol] 14 mmol/L Normal 6-16 [facility] Comment on above: Performed By: #### 2 [id number] #### [facility] [address] [place] [address] Calcium [Mass/Vol] 9.4 mg/dL Normal 8.9-11.1 [facility] Comment on above: Performed By: #### 2 [id number] #### [facility] [address] [place] [address] Chloride [Moles/Vol] 104 mmol/L Normal 101-111 [facility] Comment on above: Performed By: #### 2 [id number] #### [facility] [address] [place] [address] CO2 [Moles/Vol] 24 mmol/L Normal 21-31 [facility] Comment on above: Performed By: #### 2 [id number] #### [facility] [address] [place] [address] Creatinine [Mass/Vol] 1.5 mg/dL High 0.5-1.3 [facility] Comment on above: Performed By: #### 2 604508 #### [facility] [address] [place] [address] Glucose [Mass/Vol] 109 mg/dL Normal 55-199 [facility] Comment on above: Performed By: #### 2 [id number] #### [facility] [address] [place] [address] Potassium [Moles/Vol] 4.2 mmol/L Normal 3.5-5.3 [facility] Comment on above: Performed By: #### 2 [id number] #### [facility] [address] [place] [address] Sodium [Moles/Vol] 138 mmol/L Normal 135-145 [facility] Comment on above: Performed By: #### 2 [id number] #### [facility] [address] [place] [address] Urea nitrogen [Mass/Vol] 26 mg/dL High 5-21 [facility] Comment on above: Performed By: #### 2 [id number] #### [facility] [address] [place] [address] Urea nitrogen/Creatinine [Mass ratio] 17 No Units Normal 10-20 [facility] Comment on above: Performed By: #### 2 [id number] #### [facility] [address] [place] [address] Consent for Treatmenton 02-08 Consent for Treatment [id number] Normal [facility] [id number] 03-08-2024 HbA1c (Bld) [Mass fraction] 6.5 % High <=5.9 [facility] Comment on above: Performed By: #### 7 [id number] #### [facility] [address] [place] [address] eGFRon 03-08-2024 eGFR 48 mL/min/1.73 m2 Low >=59 [facility] Comment on above: Order Comment: Order added by Discern Expert. Performed By: #### 1 [id number] #### [facility] [address] [place] [address] Ambulatory Visit Summaryon 0 03-07-2024 Ambulatory Visit [...] EDT With: Kristofer SCHUSTER, Haider Bee Where: [facility] Invalid Interpretation Code [address] [place] [address]- \.br \ Monday 9:15 AM EDT \.br\ With: AIDAN SCHUSTER, Araceli Treadwell\.br\ Where: [facility] Family Medicine Office/Clini c Noteon 03-07-2024 Family Medicine Office/Clinic Note HPI Staff Dong is a 73 year old male presenting for infection right leg referral to infectious disease and possible cultures called with info as she's not sure she'll be with her at this appt He was seen at [facility] and is having drg?? end of March, [...] Ordered: Basic Metabolic Panel Blood Culture [facility] External Ambulatory Referral HgbA1c 2. Stage 3a chronic kidney disease (N18.31: Chronic kidney disease, stage 3a) - Will recheck today. - No concerns Ordered: Basic Metabolic Panel Blood Culture [facility] External Ambulatory Referral HgbA1c 3. Stasis ulcer (I83.009: Varicose veins of unspecified lower extremity with ulcer of unspecified site) - Most likely the cause of number 1. - No ulcer today Ordered: Basic Metabolic Panel Blood Culture [facility] External Ambulatory Referral HgbA1c 4. Morbid obesity with body mass index of 40.0-44.9 in adult (E66.01: Morbid (severe) obesity due to excess calories) - Diet and exercise advsied Ordered: Basic Metabolic Panel Blood Culture [facility] Body Mass Index (BMI) documented 3008F Current tobacco non-user 1036F Depression Screening Negative 3352F [facility] External Ambulatory Referral HgbA1c [...] Ordered: Basic Metabolic Panel Blood Culture [facility] External Ambulatory Referral HgbA1c [...] neuropathy Complex (more content not included)... Normal [facility] Comment on above: Result Comment: Elec tronically Signed By: Kristofer SCHUSTER, Haider Sandhu.br\Date and Time Signed: 03/07/24 11:12 EDT Physician Referralon 024 Physician Referral [id number]. 00TIFF [facility] CNOVon 02-29-2024 CNOV Office Visit (PAINMN ) DONG WHITMORE ([id number]) 1950 M Date Time Provider Department 02/29/24 1:30 PM HERBERTH ARAUJO PAINMN During your visit today, we recorded the following information about you: Temperature Pulse Blood pressure Weight 97.4 degrees 62/minute 138/73 122.5 kg Height 1.702 m Herberth Araujo MD, PhD 03/18/2024 7:05 PM Signed [facility] Pain Management Department New Patient Consultation Referring Physician: CLAUDINE Chief Complaint: Right third toe pain SUBJECTIVE: Dong Whitmore is a 73 year old male with a pertinent past medical history of diabetes who presents to [facility] Pain Management Center for the evaluation of right third toe pain. 15-year history of right third toe pain. He notes that over this time the pain has become increasingly severe has caused him significant discomfort and suffering. He has been to many specialists in the [facility]-over the course of the past 15 [...] 16th pe (more content not included)... [facility] Rem[facility] 02-09-2024 Reminders - From: Vandana Hilton MA (EU - Recalls Aidan) To: - Recalls Aidan; Sent: 02/09/2024 13:50:30 EDT Show up: 06/09/2024 13:50:00 EDT Subject: renal us Reminder/Recall Addendum by Sharla Longoria on January 30, 2024 13:44:48 EDT From: Sharla Longoria (EU - Clinical) To: [facility] Recalls Aidan; Sent: 01/30/2024 13:44:48 EDT Subject: FW: f/u after ESWL -Order for Renal US sent to Due Date/Time: 05/31/2024 13:44:00 EDT Caller Name: DONG WHITMORE; Caller Number: H , B [phone] Addendum by Sharla Longoria on January 30, 2024 13:43:59 EDT Called pt and advised him of below message. Pt voiced understanding. Pt scheduled for 07/17/24 w/ TERRIE. Will send to [facility] recall for TERRIE. Addendum by Araceli BERMUDEZ MD on January 29, 2024 18:12:03 EDT From: Araceli BERMUDEZ MD To: EU - Clinical; Sent: 01/29/2024 18:12:03 EDT Subject: RE: f/u after ESWL -Order for Renal US sent to Caller Name: DONG WHITMORE; Caller Number: H , B [phone] Please let the patient know that the [...] DONG WHITMORE; Caller Number: H , B [phone] Pt s/p R ESWL 01/03, to get [...] DONG WHITMORE; Caller Number: H , B [phone] Addendum by Nan Hodges MA on January 19, 2024 12:33:50 EDT From: Nan Hodges MA (EU - Pending Results) To: EU - RUPERT/Cook Messages & Refills; Sent: 01/19/2024 12:33:50 EDT Subject: RE: f/u after ESWL -Order for Renal US sent to Due Date/Time: 01/25/2024 12:33:00 EDT Caller Name: DONG WHITMORE; Caller Number: H , B [phone] Scheduled 01/24/24 @ [facility] From: Elena Robbins To: EU - Pending Results; Sent: 01/08/2024 09:17:33 EDT Subject: f/u after ESWL -Order for Renal US sent to Due Date/Time: 01/17/2024 09:17:00 EDT Caller Name: DONG WHITMORE; Caller Number: H , B [phone] Pt is PO R ESWL 01/03 - he is to get renal US in 2 weeks and call for results if we don't contact him 1st - order sent to [facility] CNPCynthia 02-06-2024 CNPN Telephone (MARTIRAVN) DONG WHITMORE ([id number]) 1950 M Date Time Provider Department 02/06/24 FRANCOISE SINGLETARY During your visit today, we recorded the following information about you: Lela Hyatt, RN 02/06/2024 10:46 AM Signed ----- Message from Francoise Singletary MD sent at 02/05/2024 3:12 PM EDT ----- Do you mind calling him and giving him the number to schedule at [facility] [place] to discuss DRG? I'd suggest seeking an appointment with the following doctors who perform DRG implantation: Dr. Carlisle, Dr. Araujo, Dr. Dan, Dr. Moo cMwilliams and Dr. Kamara may do DRG - I'm not sure. Thanks Lela! ----- Message ----- From: Livia Lester PA-C Sent: 02/05/2024 2:07 PM EDT To: Francoise Singletary MD No one on this side of [facility] that I know of does DRG so, we also send to [facility] I would just have Lela call [...] I know who do DRG are at [facility]. How do we refer him [...] Encounter Status:Closed by LELA HYATT on 02/06/24 [facility] 02-05-2024 CNOV Office Visit (DENICE ) DONG WHITMORE ([id number]) 1950 M Date Time Provider Department 02/05/24 11:30 AM FRANCOISE SINGLETARY During your visit today, we recorded the following information about you: Pulse Blood pressure Weight 80/minute 131/70 124.7 kg Francoise Singletary MD 02/05/2024 3:14 PM Signed [facility] Pain Management Department Consultation Date: [...] The patient has seen other pain providers. [facility] Neurology OV 02/01/22 Assessment and Plan [...] year old (more content not included)... Normal [facility] Renalon 01-26-2024 US Renal Exam Date/Time: 01/24/2024 [...] Rosenbaum MD Transcribed by: GREGORIO Technologist: HW [facility] Consent for Treatmenton 01-07 Consent for Treatment [id number]#1.0 0TIFF [facility] Consultation Noteon 01-22-20 24 Consultation Note [id number]#1.0 0TIFF [facility] Consultation Note [id number]#1.0 0TIFF [facility] IntraOperative Documentson 0 01-08-2024 IntraOperative Documents [id number]#1.0 0TIFF [facility] Postoperative Documentson Postoperative Documents [id number]#1. 00TIFF [facility] Consent for Anesthesiaon Consent for Anesthesia [id number]#1. 00TIFF [facility] Discharge Instructionson Discharge Instructions [id number]#1. 00TIFF Normal [facility] IntraOperative Documentson 0 01-05-2024 IntraOperative Documents [id number]#1. 00TIFF Normal [facility] IntraOperative Documents [id number]#1. 00TIFF Normal [facility] Main OR Intraoperative Recor don 01-05-2024 Main OR Intraoperative Record IntraOp Document Type FT Summary Primary Physician: Araceli BERMUDEZ MD Finalized Date/Time: 01/05/24 12:41:56 Pt. Name: CHRISETHELDONG/Sex: 1950 Male Med Rec #: [id number] Physician: Araceli BERMUDEZ MD Financial #: [id number] Pt. Type: A Room/Bed: [place] [address] Admit/Disch: 01/04/24 06:41:12 - 01/04/24 12:00:26 Institution: [...] Loja Role Performed Anesthesiologist Surgeon - Primary Audio/Video Technician - Primary Gas Attendant Time In 01/04/24 09:07:00 01/04/24 09:07:00 01/04/24 [...] 01/04/24 09:55:45 General Comments: FINN BRAUN - [facility] STUDENT WORKING WITH DR. BERMUDEZ. [...] and tissue Entry 1 Skin Integrity Intact, Sharpes, Warm, and Skin (more content not included)... Normal [facility] Preoperative Documentson Preoperative Documents [id number]#1. 00TIFF Normal [facility] Progress Note-Physicianon Progress Note-Physician Patient: DONG WHITMORE [...] meets criteria ( To home ). Normal [facility] Comment on above: Result Comment: Elec tronically [...] Problems Vitamin D deficiency / SNOMED CT 82509160 / Confirmed Urgency of urination / SNOMED CT 507978718 / Confirmed Type 2 diabetes mellitus with hyperglycemia, without long-term current use of insulin / ICD-10-CM E11.65 / Confirmed Type 2 diabetes mellitus with peripheral vascular disease / SNOMED CT 915822024 / Confirmed linked DM with PVD per OP CDI policy. Type 2 diabetes mellitus with stage 3a chronic kidney disease and hypertension / SNOMED CT 011647679 / Confirmed linked DM with CKD and HTN per OP CDI policy. 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 Shoulder pain / SNOMED CT 02754746 / Confirmed Renal mass / SNOMED CT 328502129 / Confirmed Psoriasis / SNOMED CT 48860153 / Confirmed PVD (peripheral vascular disease) / SNOMED CT 6042745592 / Confirmed OA (osteoarthritis) / SNOMED CT 0675008991 / Confirmed ULISES (obstructive sleep apnea) / SNOMED CT 019448186 / Confirmed SANTANA (nonalcoholic steatohepatitis) / SNOMED CT 5919370331 / Confirmed Lumbar spondylosis / SNOMED CT 373745771 / Confirmed noted in 10/16/2023 Pain Management Consult Note page 3. added per OP CDI policy. Impotence / SNOMED CT 4166990217 / Confirmed History of kidney stones / SNOMED CT 1240256273 / Confirmed Hiatal hernia / SNOMED CT 576216994 / Confirmed GERD (gastroesophageal reflux disease) / SNOMED CT 678012953 / Confirmed Nerves / SNOMED CT 8719441868 / Confirmed Primary hypertension / SNOMED CT 39357234 / Confirmed Anticoagulated / SNOMED CT 268831488 / Confirmed Complex renal cyst / SNOMED CT 1133909922 / Confirmed Chronic painful diabetic neuropathy / SNOMED CT 2658897755 / Confirmed noted in 10/16/2023 Pain Management Consult Note page 3. added per OP CDI policy. Pain, foot, right, chronic / SNOMED CT 7263111689 / Confirmed noted in 10/16/2023 Pain Management Consult Note page 3. added per OP CDI policy. Chronic bilateral low back pain without sciatica / SNOMED CT 883504205 / Confirmed Stage 3a chronic kidney disease / SNOMED CT 7067624279 / Confirmed Excessive dietary caloric intake / SNOMED CT 023820799 / Confirmed Morbid obesity with body mass index of 40.0-44.9 in adult / SNOMED CT 3448283027 / Confirmed BPH with obstruction/lower urinary tract symptoms / SNOMED CT 8500260407 / Confirmed Anxiety / SNOMED CT 90398693 / Confirmed Allergic rhinitis / SNOMED CT 848603958 / Confirmed Acquired absence of right great toe / SNOMED CT 906333412 / Confirmed added per 07/24/2023 query response. Resolved: Neuropathy / SNOMED CT 5978000032 idiopathic chronic Resolved: Hyperlipidemia / SNOMED CT 76437223 Resolved: Depressed mood / SNOMED CT 626303406 Resolved: Amputation of toe of right foot / ICD-10-CM S98.131A Resolved: BPH - benign prostatic hyperplasia / SNOMED CT 9454866639 Resolved: Anxiety disorder / SNOMED CT 416400681 Canceled: Microscopic hematuria / SNOMED CT 852167211 Canceled: Kidney stone / IMO 67349 Canceled: Hypertension / SNOMED CT 7806928534 Canceled: HLD (hyperlipidemia) / SNOMED CT 42997433 Canceled: Glycosuria / SNOMED CT 53075750 Canceled: Diabetes / SNOMED CT 803686070 Histories Procedure history: TOE AMPUTATION on 11/16/2018 at 68 Years. Cysto, Lt retrogrades, Lt stent, Ureteral cath, Lt ESWL ([id number]) on 06/07/2018 at 67 Years. Comments: 06/21/2019 14:34 EDT - Marilynn Zhang MA Cysto, Lt retr (more content not included)... Normal [facility] Comment on above: Result Comment: Elec tronically [...] mGy = na DAP = na Normal [facility] Capillary Glucose POCon 12-08 Glucose [Mass/Vol] 133 mg/dL High 55-99 [facility] Comment on above: Performed By: #### 2 [id number] #### [facility] [address] [place] [address] Consent for Procedure/Surger yon 01-04-2024 Consent for Procedure/Surgery [id number]#1. 00TIFF [facility] Consent for Treatmenton 12-08 Consent for Treatment [id number]#1.0 0TIFF [facility] Discharge Instructionson Discharge Instructions DONG WHITMORE :1950 [...] Araceli BERMUDEZ MD Where: [facility] Invalid Interpretation Code [address] [place] [address]- \.br \ Monday 9:30 AM EDT \.br\ With:\.br\ Where: [facility] Comment on above: Result Comment: Elec tronically Signed By: Ector WALKER, Rakel Nur\.br\Date and Time Signed: 01/04/24 10:37 EDT H&P Updateon 01-04-2024 H&P Update [id number]#1. 00TIFF Normal [facility] Inpatient Patient Summaryon 01-04-2024 Inpatient Patient Summary [address] [address] [facility] Clinical Discharge Instructions PERSON INFORMATION Name: DONG WHITMORE [facility]#:[id number] PHYSICIANS Admitting Physician: Araceli BERMUDEZ MD Attending Physician: Araceli BERMUDEZ MD PCP: Haider Hickman MD Discharge Diagnosis: Comment: PATIENT EDUCATION INFORMATION Instructions: Lithotripsy, Care After Medication Leaflets: Follow up: With: Address: When: Araceli BERMUDEZ [address] [place] [address], [address], [address] [address] Business (1) Comments: Please call [...] for follow-up With: Address: When: [place] [address] [facility] [address] Business (1) Type Location Start Finish State URO Office Visit [facility] 03/13/2024 9:45 AM 03/13/2024 10:00 AM Confirmed FM Open [facility] 03/26/2024 2:15 PM 03/26/2024 2:30 PM Confirmed FM Medicare Wellness Subsequent [facility] FM Ruth Ann 05/13/2024 9:30 AM 05/13/2024 10:30 AM Confirmed URO Office Visit [facility] PREM Whittaker 11/06/2024 10:30 AM 11/06/2024 10:45 AM Confirmed MEDICATION LIST New Medications [id number], [address], [place] [phone], [phone] acetaminophen-hydrocod one (acetaminophen-hydroco done 325 mg-5 mg [...] By Mouth every day. Comment: Normal [facility] Main OR PACU I Recordon 12-08 Main OR PACU I Record PACU Phase I Document Type FT Summary Primary Physician: Araceli BERMUDEZ MD Finalized Date/Time: 01/04/24 10:17:21 Pt. Name: DONG WHITMORE /Sex: 1950 Male Med Rec #: [id number] Physician: Araceli BERMUDEZ MD Financial #: [id number] Pt. Type: A Room/Bed: 01/07 Admit/Disch: 01/04/24 [...] Signed By: Sangita Ross RN 01/04/24 10:17 [facility] Main OR PACU II Recordon Main OR PACU II Record PACU Phase II Document Type FT Summary Primary Physician: Araceli BERMUDEZ MD Finalized Date/Time: 01/04/24 12:01:26 Pt. Name: DONG WHITMORE/Sex: 1950 Male Med Rec #: [id number] Physician: Araceli BERMUDEZ MD Financial #: [id number] Pt. Type: A Room/Bed: [place] [address] Admit/Disch: 01/04/24 06:41:12 - 01/04/24 12:00:26 Institution: [...] Signed By: Rakel Barney RN 01/04/24 12:01 [facility] Main OR Preoperative Recordo n 01-04-2024 Main OR Preoperative Record PreOp Document Type FT Summary Primary Physician: Araceli BERMUDEZ MD Finalized Date/Time: 01/04/24 09:57:43 Pt. Name: HAIM DONGANTHONY Ann/Sex: 1950 Male Med Rec #: [id number] Physician: Araceli BERMUDEZ MD Financial #: [id number] Pt. Type: A Room/Bed: [facility]/ Admit/Disch: 01/04/24 06:41:12 - Institution: [...] By: Sim Ling Win 01/04/24 09:57 Normal [facility] Monitor Recordon 01-04-2024 Monitor Record [id number]#1. 00TIFF Normal [facility] Operative Reporton Operative Report Patient: DONG WHITMORE [...] placed per urethra and a well-lubricated 22 Belarusian is urethroscope with 30 degree lens then [...] pyelogram was then performed utilizing a 6 Belarusian open-ended ureteral catheter. The ureter is normal [...] keep the stone in view. Utilizing the Eferio Lithostar lithotripter, 1500 shocks were given up to 3.2 power level per protocol. Difficult to tell whether there was good stone fragmentation or not secondary to the patient's body habitus and the fact that this may be a uric acid calculus. He tolerates it well. Upon completion of the procedure the ureteral catheter was removed and [facility] was [facility] [place] [facility] [place] and then back to PACU in satisfactory condition, stable vital signs. Plan to be for discharge home with plans for a follow-up kidney ultrasound within the next couple weeks. Prescription sent to pharmacy for doxycycline for antibiotic prophylaxis as well as 7 pills of Cisco 5/325. She was in agreement with the plan. . Estimated Blood Loss: 0 ml. Complications: None. Anesthesia type: General. Normal [facility] Comment on above: Result Comment: Elec tronically Signed By: Araceli BERMUDEZ MD\.br\Date and Time Signed: 01/04/24 10:09 EDT Outpatient Surgery Discharge Instructionon 01-04-2024 Outpatient Surgery Discharge Instruction [place] [id number] Patient Discharge Instructions PERSON INFORMATION Name: DONG [...] Follow up: With: Address: When: Araceli BERMUDEZ [facility] [place], [address], [address] [address] Business (1) Comments: Please call my office [...] for follow-up With: Address: When: [place] [address] [facility] [address] Business (1) Type Location Start Finish State URO Office Visit [facility] PREM Whittaker 03/13/2024 9:45 AM 03/13/2024 10:00 AM Confirmed FM Open [facility] Ruth Ann 03/26/2024 2:15 PM 03/26/2024 2:30 PM Confirmed FM Medicare Wellness Subsequent [facility] FM Ruth Ann 05/13/2024 9:30 AM 05/13/2024 10:30 AM Confirmed URO Office Visit [facility] EU Panfilo 11/06/2024 10:30 [...] to serve you. Thank you for choosing [facility] HERE ARE THE MEDICATION CHANGES THAT OCCURRED DURING YOUR HOSPITAL STAY New Medications [id number], [address], [place] [phone], [phone] acetaminophen-hydrocod one (acetaminophen-hydroco done 325 mg-5 mg [...] care p (more content not included)... Normal [facility] PT - Progress Noteson 2023 PT - Progress Notes [id number]#1.0 0TIFF Normal [facility] Patient Education - Texton 0 01-04-2024 Patient [...] these instructions at home: Medicines ? Take ukhh-yia-kkayrwm and prescription medicines only as told by [...] forming. ? (more content not included)... Normal [facility] Physician Referralon 024 Physician Referral [id number]#1. 00TIFF Normal [facility] Physician Referral [id number]#1. 00TIFF Normal [facility] BMPon 12-29-2023 Anion gap [Moles/Vol] 13 mmol/L Normal 6-16 [facility] Comment on above: Performed By: #### 2 464384, 7576113, 77642562, 74998212 #### [facility] [address] [place] [address] Calcium [Mass/Vol] 9.1 mg/dL Normal 8.9-11.1 [facility] Comment on above: Performed By: #### 2 281949, 0847261, 89887404, 08618344 #### [facility] [address] [place] [address] Chloride [Moles/Vol] 106 mmol/L Normal 101-111 [facility] Comment on above: Performed By: #### 2 117900, 3700374, 41122974, 52205062 #### [facility] [address] [place] [address] CO2 [Moles/Vol] 25 mmol/L Normal 21-31 [facility] Comment on above: Performed By: #### 2 287155, 3800035, 79882602, 61013908 #### [facility] [address] [place] [address] Creatinine [Mass/Vol] 1.2 mg/dL Normal 0.5-1.3 [facility] Comment on above: Performed By: #### 2 962593, 1950252, 46323960, 80263476 #### [facility] [address] [place] [address] Glucose [Mass/Vol] 145 mg/dL Normal 55-199 [facility] Comment on above: Performed By: #### 2 982308, 7580950, 45523684, 28955699 #### [facility] [address] [place] [address] Potassium [Moles/Vol] 3.8 mmol/L Normal 3.5-5.3 [facility] Comment on above: Performed By: #### 2 510074, 0466641, 15514808, 80924527 #### [facility] [address] [place] [address] Sodium [Moles/Vol] 140 mmol/L Normal 135-145 [facility] Comment on above: Performed By: #### 2 718013, 7760612, 50683469, 12380721 #### [facility] [address] [place] [address] Urea nitrogen [Mass/Vol] 25 mg/dL High 5-21 [facility] Comment on above: Performed By: #### 2 193171, 4215985, 92530467, 66363674 #### [facility] [address] [place] [address] Urea nitrogen/Creatinine [Mass ratio] 21 No Units High 10-20 [facility] Comment on above: Performed By: #### 2 172398, 8529846, 11166720, 76339179 #### [facility] [address] [place] [address] CBC w/ Auto Diffon 4 Basophils/100 WBC (Bld) 0.5 % Normal 0.0-2.0 [facility] Comment on above: Performed By: #### 2 856428, 7769497, 70492326, 88348755 #### [facility] [address] [place] [address] Basophils/Leukocytes Auto (Bld) [Pure # fraction] 0.0 E9/L Normal 0.0-0.2 [facility] Comment on above: Performed By: #### 2 313739, 0815330, 62970493, 54183547 #### [facility] [address] [place] [address] Eosinophils (Bld) [#/Vol] 0.3 E9/L Normal 0.0-0.5 [facility] Comment on above: Performed By: #### 2 109297, 3072514, 60192829, 89041460 #### [facility] [address] [place] [address] Eosinophils/100 WBC (Bld) 5.7 % Normal 0.0-8.0 [facility] Comment on above: Performed By: #### 2 385437, 2519874, 66684497, 66584959 #### [facility] [address] [place] [address] Erythrocyte distribution width (RBC) [Ratio] 14.6 % High 10.9-14.2 [facility] Comment on above: Performed By: #### 2 165718, 5118424, 54216817, 12028013 #### [facility] [address] [place] [address] Hematocrit (Bld) [Volume fraction] 38.3 % Normal 37.7-49.0 [facility] Comment on above: Performed By: #### 2 767144, 1944937, 24664824, 88546034 #### [facility] [address] [place], [place] [address] Hemoglobin (Bld) [Mass/Vol] 12.8 g/dL Low 13.5-17.5 [facility] Comment on above: Performed By: #### 2 892223, 0742427, 21639562, 50915352 #### [facility] [address] [place], [place] [address] Lymphocytes (Bld) [#/Vol] 0.9 E9/L Low 1.0-4.0 [facility] Comment on above: Performed By: #### 2 030762, 8940980, 08471038, 08061761 #### [facility] [address] [place] [address] Lymphocytes/100 WBC (Bld) 17.1 % Normal 14.0-50.0 [facility] Comment on above: Performed By: #### 2 011443, 6872629, 47661852, 77585028 #### [facility] [address] [place] [address] MCH (RBC) [Entitic mass] 28.1 pg Normal 27.0-34.0 [facility] Comment on above: Performed By: #### 2 426164, 8051306, 61907192, 71757278 #### [facility] [address] [place] [address] MCHC (RBC) [Mass/Vol] 33.4 g/dL Normal 31.4-36.0 [facility] Comment on above: Performed By: #### 2 287476, 1303617, 41898535, 96828264 #### [facility] [address] [place] [address] MCV (RBC) [Entitic vol] 84.1 fL Normal 80.0-100.0 [facility] Comment on above: Performed By: #### 2 920589, 9772105, 92523048, 45954532 #### [facility] [address] [place] [address] Monocytes (Bld) [#/Vol] 0.4 E9/L Normal 0.2-1.0 [facility] Comment on above: Performed By: #### 2 238194, 4729071, 12058361, 68911874 #### [facility] [address] [place] [address] Neutrophils (Bld) [#/Vol] 3.9 E9/L Normal 2.0-7.5 [facility] Comment on above: Performed By: #### 2 530556, 4231240, 87905339, 63904059 #### [facility] [address] [place] [address] Neutrophils/100 WBC (Bld) 69.6 % Normal 36.0-75.0 [facility] Comment on above: Performed By: #### 2 537805, 6127195, 84812304, 56549946 #### [facility] [address] [place] [address] Platelet 178.0 E9/L Normal 150.0-500.0 [facility] Comment on above: Performed By: #### 2 722515, 5171930, 63610536, [id number] #### [facility] [address] [place] [address] Platelet mean volume (Bld) [Entitic vol] 8.4 fL Normal 6.4-10.8 [facility] Comment on above: Performed By: #### 2 595743, 5842083, 66601713, 35929985 #### [facility] [address] [place] [address] RBC (Bld) [#/Vol] 4.6 E12/L Normal 4.3-5.9 [facility] Comment on above: Performed By: #### 2 361990, 2060938, 68640840, [id number] #### [facility] [address] [place] [address] WBC corrected for nucl RBC Auto (Bld) [#/Vol] 5.5 E9/L Normal 4.0-11.0 [facility] Comment on above: Performed By: #### 2 872158, 4738725, 08525283, 87779278 #### [facility] [address] [place] [address] Consent for Treatmenton 12-08 Consent for Treatment [id number]#1.0 0TIFF Normal [facility] PT & PTTon 12-29-2023 aPTT Coag (PPP) [Time] 35.7 second(s) Normal 25.1-36.5 [facility] Comment on above: Result Comment: Para meter [...] the same coagulation reagent and instrumentation as [facility]. Currently there are no coagulation studies available worldwide for children to 14 days, and no normal ranges. Heparin therapeutic range (represented by Anti-Factor Xa activity of 0.2 - 0.4 U/mL) corresponds to PTT of 56.6 - 109.0 sec. Performed By: #### 2 685050, 3698153, 42903517, 34913183 #### [facility] [address] [place] [address] INR Coag (PPP) [Relative time] 1.23 {INR} Invalid Interpretation Code [facility] Comment on above: Result Comment: INR results are specifically intended to assess patients stabilized on long-term Anticoagulation therapy suggested INR?s ?Less Intensive Anticoagulation? 2.0 ? 3.0 Conventional Range 3.0 ? 4.5 Performed By: #### 2 560026, 7187436, 15255828, 50176855 #### [facility] [address] [place] [address] PT Coag (PPP) [Time] 13.8 second(s) High 9.4-12.5 [facility] Comment on above: Result Comment: 15 d [...] the same coagulation reagent and instrumentation as [facility]. Currently there are no coagulation studies available worldwide for children to 14 days, and no normal ranges. Performed By: #### 2 542518, 7950205, 55237976, 10207783 #### [facility] [address] [place] [address] UA with Cult Rflxon 12-29-19 24 Color (U) Light-Yellow Normal Yellow [facility] Comment on above: Result Comment: Micr oscopic readings are only performed on those samples that meet specific criteria set forth by [facility]. Performed By: #### 4 [id number] ####[facility] [address] [place] [address] Glucose (U) [Mass/Vol] Negative Normal Negative [facility] Comment on above: Performed By: #### 4 [id number] ####[facility] [address] [place] [address] Ketones Ql (U) Negative Normal Negative [facility] Comment on above: Performed By: #### 4 [id number] ####[facility] [address] [place] [address] UA Blood Negative Normal Negative [facility] Comment on above: Performed By: #### 4 [id number] ####[facility] [address] [place] [address] UA Clarity Clear Normal Clear [facility] Comment on above: Performed By: #### 4 [id number] ####[place] [address] [place] [address] UA Leuk Est Negative Normal Negative [facility] Comment on above: Performed By: #### 4 [id number] ####[facility] [address] [place] [address] UA Nitrite Negative Normal Negative [facility] Comment on above: Performed By: #### 4 [id number] ####[facility] [address] [place] [address] UA pH 6.5 Invalid Interpretation Code 5.0-9.0 [facility] Comment on above: Performed By: #### 4 [id number] ####[facility] [address] [place] [address] UA Protein Trace Abnormal Negative [facility] Comment on above: Performed By: #### 4 [id number] ####[facility] [address] [place] [address] UA Spec Grav 1.021 Invalid Interpretation Code 1.005-1.030 [facility] Comment on above: Performed By: #### 4 [id number] ####[facility] [address] [place] [address] UA Urobilinogen Negative Normal Negative [facility] Comment on above: Performed By: #### 4 [id number] ####[facility] [address] [place] [address] Urobilinogen (U) [Mass/Vol] Negative Normal Negative [facility] Comment on above: Performed By: #### 4 [id number] ####[facility] [address] [place] [address] UA Spec Desc Clean Catch Normal [facility] Comment on above: Performed By: #### 4 [id number] ####[facility] [address] [place] [address] XR Chest 2 Viewson XR Chest 2 Views Exam Date/Time: 12/29/2023 09:35 EDT Reason for Exam: P.A.T. Report [facility] [phone] IMPRESSION: No acute infiltrates or effusions, no [...] mGy = na DAP = na Normal [facility] eGFRon 12-29-2023 eGFR 63 mL/min/1.73 m2 Normal >=59 [facility] Comment on above: Order Comment: Order added by Discern Expert. Performed By: #### 2 219696, 3453748, 92014897, 67298857 #### [facility] [address] [place] [address] Family Medicine Office/Clini c Noteon 12-28-2023 Family [...] (12/05/2016), ysto, (more content not included)... Normal [facility] Comment on above: Result Comment: Elec tronically Signed By: Kristofer SCHUSTER, Haider Bee\.br\Date and Time Signed: 12/28/23 09:51 EDT Physician Orderon 12-28-2023 Physician Order [id number]#1.0 0TIFF Normal [facility] Ambulatory Visit Summaryon 0 12-26-2023 Ambulatory Visit [...] SCHUSTER, Araceli Treadwell Where: [facility] Invalid Interpretation Code [address] [place] [address]- \.br \ Monday 9:30 AM EDT \.br\ With:\.br\ Where: [facility] CMPon 12-26-2023 Albumin [Mass/Vol] 4.2 g/dL Normal 3.3-5.0 [facility] Comment on above: Performed By: #### 2 441992, 1133264, 41265436, 5395707 ####[facility] [address] [place] [address] Albumin/Globulin (S) [Mass conc ratio] 1.6 Normal 1.1-2.2 [facility] Comment on above: Performed By: #### 2 844342, 3668399, 68784765, 7888450 ####[facility] [address] [place] [address] ALP [Catalytic activity/Vol] 67 Int._Unit/L Normal 21-98 [facility] Comment on above: Performed By: #### 2 238689, 9239347, 83349973, 6930877 ####[facility] [address] [place] [address] ALT No additional P-5'-P [Catalytic activity/Vol] 20 Int._Unit/L Normal 6-46 [facility] Comment on above: Performed By: #### 2 618157, 2060503, 79036389, 7385584 ####[facility] [address] [place] [address] Anion gap [Moles/Vol] 10 mmol/L Normal 6-16 [facility] Comment on above: Performed By: #### 2 167724, 7154575, 70286534, 3099059 ####[facility] [address] [place] [address] AST [Catalytic activity/Vol] 21 Int._Unit/L Normal 5-43 [facility] Comment on above: Performed By: #### 2 347436, 3709432, 63850727, 0428667 ####[facility] [address] [place] [address] Bilirubin [Mass/Vol] 0.6 mg/dL Normal 0.0-1.1 [facility] Comment on above: Performed By: #### 2 421401, 1595489, 51367330, 1273556 ####[facility] [address] [place] [address] Calcium [Mass/Vol] 9.3 mg/dL Normal 8.9-11.1 [facility] Comment on above: Performed By: #### 2 521763, 0876646, 53867146, 1768809 ####[facility] [address] [place] [address] Chloride [Moles/Vol] 105 mmol/L Normal 101-111 [facility] Comment on above: Performed By: #### 2 411825, 2818020, 66023980, 8036385 ####[facility] [address] [place] [address] CO2 [Moles/Vol] 27 mmol/L Normal 21-31 [facility] Comment on above: Performed By: #### 2 432937, 6345812, 67200928, 5001818 ####[facility] [address] [place] [address] Creatinine [Mass/Vol] 1.3 mg/dL Normal 0.5-1.3 [facility] Comment on above: Performed By: #### 2 944682, 0529668, 97074168, 1792940 ####[address] [address] Globulin (S) [Mass/Vol] 2.6 g/dL Normal 1.4-4.0 [facility] Comment on above: Performed By: #### 2 013533, 5931522, 90629209, 5032225 ####[facility] [address] [place] [address] Glucose [Mass/Vol] 135 mg/dL Normal 55-199 [facility] Comment on above: Performed By: #### 2 454199, 9269361, 49177702, 9087061 ####[facility] [address] [place] [address] Potassium [Moles/Vol] 4.1 mmol/L Normal 3.5-5.3 [facility] Comment on above: Performed By: #### 2 424978, 1255397, 51072524, 2663873 ####[facility] [address] [place] [address] Protein [Mass/Vol] 6.8 g/dL Normal 6.0-7.8 [facility] Comment on above: Performed By: #### 2 750964, 4590011, 89458755, 5036233 ####[facility] [address] [place] [address] Sodium [Moles/Vol] 138 mmol/L Normal 135-145 [facility] Comment on above: Performed By: #### 2 017108, 2475937, 01587749, 8561411 ####[facility] [address] [place] [address] Urea nitrogen [Mass/Vol] 27 mg/dL High 5-21 [facility] Comment on above: Performed By: #### 2 656207, 8614841, 90376845, 9378271 ####[facility] [address] [place] [address] Urea nitrogen/Creatinine [Mass ratio] 21 No Units High 10-20 [facility] Comment on above: Performed By: #### 2 403237, 8005743, 85441181, 2124478 ####[facility] [address] [place] [address] Lipid Panelon 12-26-2023 Cholesterol [Mass/Vol] 118 mg/dL Low 120-200 [facility] Comment on above: Performed By: #### 2 094420, 2386659, 20515376, 1169621 ####[facility] [address] [place] [address] Cholesterol in HDL [Mass/Vol] 33 mg/dL Invalid Interpretation Code [facility] Comment on above: Result Comment: '>= 60 LOW RISK' '<= 40 HIGH RISK' Performed By: #### 2 245980, 0691889, 80891076, 9783988 ####[facility] [address] [place] [address] Cholesterol in LDL [Mass/Vol] 57 mg/dL Normal <=129 [facility] Comment on above: Performed By: #### 2 001327, 3973483, 70796440, 9718797 ####[facility] [address] [place] [address] Cholesterol in VLDL [Mass/Vol] 45 mg/dL High 7-40 [facility] Comment on above: Performed By: #### 2 212487, 7022021, 38526693, 8871224 ####[facility] [address] [place] [address] Triglyceride [Mass/Vol] 225 mg/dL High <=149 [facility] Comment on above: Performed By: #### 2 847427, 6765373, 81448164, 8672388 ####[facility] [address] [place] [address] U Microalbon 12-26-2023 Albumin DL <= 20 mg/L (U) [Mass/Vol] 5.8 mg/dL High 0.0-1.9 [facility] Comment on above: Performed By: #### 1 561920055, 85686750 ####[facility] [address] [place] [address] U Protein/Creat Ratioon 12-07 Protein/Creatinine (U) [Ratio] 20.90 mg/gm Cr Normal .00-200.00 [facility] Comment on above: Performed By: #### 1 705392447, 89912192 ####[facility] [address] [place] [address] U Creatinine 99.4 mg/dL Invalid Interpretation Code [facility] Comment on above: Performed By: #### 1 084552788, 26403111 ####[facility] [address] [place] [address] Ur Total Protein 20.8 mg/dL Invalid Interpretation Code [facility] Comment on above: Performed By: #### 1 [id number], 89215813 ####[facility] [address] [place] [address] Vit B12on 12-26-2023 Cobalamin (Vitamin B12) [Mass/Vol] 348 pg/mL Normal 50-1500 [facility] Comment on above: Performed By: #### 2 155199, 2314055, 79256254, 3828662 ####[facility] [address] [facility] [address] eGFRon 12-26-2023 eGFR 57 mL/min/1.73 m2 Low >=59 [facility] Comment on above: Order Comment: Order added by Discern Expert. Performed By: #### 2 855897, 7548946, 19744382, 1777809 ####[facility] [address] [place] [address] Pre-Visit Planningon 024 Pre-Visit Planning - From: Ceci Yu To: Kristofer SCHUSETR, Haider Bee; Sent: 12/20/2023 09:56:36 EDT Subject: Pre-Visit Planning Due Date/Time: 12/20/2023 09:56:00 EDT Caller Name: DONG WHITMORE; Caller Number: H , B [phone] Hi Dr. Hickman. During a pre-visit planning [...] feel free to contact me at extension [phone]. Thank you! 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#1.00 TIFF Normal [facility] RAD - MRI Reporton RAD - MRI Report [id number]#1.00 TIFF Normal [facility] Screenson 10-20-2023 Screens [id number]#1. 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 8 oz (237 mL) of milk, hvlkftw-rsvgeeecnduu-u airy milk, and calcium-fortifiedfruit juice. Calcium-fortified means [...] Spinach (cooked), rhubarb, beets, sweet potatoes, and Serbian chard. ? Peanuts. ? Potato chips, kinyarwanda fries, and baked potatoes with skin on. ? Nuts and nut products. ? Chocolate. ? If you regularly take a diuretic medicine, make sure to eat at least 1 or 2 servings of fruits or vegetables that are high in potassium each day. These include: ? Avocado. ? Banana. ? [place], prune, carrot, or tomato juice. ? Baked [...] fish oil, or vitamin B6. ? Take sezg-ngg-dyfbvfn and prescription medicines only as told by your health care provider. These include supplements. What foods sh (more content not included)... Normal [facility] Reminderson 10-18-2023 Reminders - From: Roya Álvarez To: PREM Bermudez; Sent: 10/18/2023 15:39:39 EST Show up: 08/18/2024 15:39:00 EST Subject: Renal US Due Date/Time: 09/17/2024 15:39:00 EST Pt needs scheduled for TERRIE prior to 1 year appointment. Being done at [facility]. order placed. Macario Byrd [facility] Urology Office/Clinic Noteon 10-18-2023 Urology Office/Clinic Note [...] with voice recognition artificial intelligence software, specifically [employer], [employer] and or [employer]. Substitutions may have occurred due to the [...] Information AIDAN SCHUSTER, Araceli Treadwell, URL [address] [place] [address]- Additional Instructions: 1 year w/ renal US [...] benign pr (more content not included)... 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 Review of Systems [...] with voice recognition artificial intelligence software, specifically [employer], [employer] and or [employer]. Substitutions may have occurred due to the inherent limitations of voice recognition and artificial intelligence software. ATTESTATION: Documentation services were performed after patient or guardian consented to allow [employer] to record this visit. HEMANTH program development specialist and provider reviewed before signing. HEMANTH: [...] under fluo (more content not included)... Normal [facility] Comment on above: Result Comment: Elec tronically [...] SCHUSTER, Araceli Treadwell Where: [facility] Invalid Interpretation Code [address] [place] [address]- \.br \ Monday 9:30 AM EDT \.br\ With:\.br\ Where: [facility] [place] [facility] Consultation Noteon 09-18-20 23 Consultation Note [id number]#1.0 0TIFF Normal [facility] A1C with Estimated Average G luon 09-11-2023 HbA1c (Bld) [Mass fraction] 6.900 % High 4.3-5.6 % June [employer] [facility] [employer] Other HbA1c (Bld) [Mass fraction] 151 mg/dL [facility] [employer] Other Glucose [Mass/Vol] 151 mg/dL Normal [facility] Comment on above: Order Comment: Reaso n for Exam 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 Performed By: #### A 1C [facility] eA #### [facility] [address] [place] [address] HbA1c (Bld) [Mass fraction] 6.9 % High 4.3-5.6 [facility] Comment on above: Order Comment: Reaso n for Exam Type 2 diabetes mellitus with diabetic chronic kidney diseas Result Comment: Incr eased risk for diabetes: 5.7 - 6.4 diabetes: >6.4 glycemic control for adults with diabetes: <7.0 Performed By: #### A 1C [facility] eA #### [facility] [address] [place] [address] Glucose - FINGER STICKon Glucose [Mass/Vol] 138 mg/dL [facility] [email or web address] [facility] Other Glucose mean value [Mass/vol ume] in Blood Estimated from glycated hemoglobinOrdered By: Aldo Middleton on 09-11-2023 Average glucose Estimated from glycated hemoglobin (Bld) [Mass/Vol] 151 mg/dL [facility] Hemoglobin A1c percentageOrd ered By: Aldo Middleton on 09-11-2023 HbA1c (Bld) [Mass fraction] 6.9 % 4.3-5.6 [facility] Comment on above: Increased risk for d iabetes: 5.7 - 6.4diabetes: >6.4glycemic control for adults with diabetes: <7.0 Consultation Noteon 09-06-20 Consultation Note [id number] TIFF Normal [facility] Consultation Noteon 08-28-20 Consultation Note [id number]#1.00 TIFF Normal [facility] US UNI ankle/arm indiceson 1 10-24-2022 US UNI ankle/arm indices [facility] [address] Ultrasound Report Signed Patient: Dong Whitmore MR#: [id number] : 1950 Acct:[id number] Age/Sex: 73 / M ADM Date: 08/24/23 Loc: [facility] Room: Type: [facility] Attending Dr: Eligio Soni MD Ordering Provider: [...] Eligio Soni MD08/24/2023 3:31 PM Dictation Location: [place] [address] Tech: Britney Sotelo Transcribed By: [facility] 08/24/23 1531 Dictated By: Eligio Soni MD 08/24/23 1530 Signed By: 08/24/23 1531 Normal [facility] US venous duplex LE RTon US venous duplex LE RT [facility] [address] Ultrasound Report Signed Patient: Dong Whitmore MR#: [id number] : 1950 Acct:[id number] Age/Sex: 73 / M ADM Date: 08/24/23 [facility] Room: Type: [facility] Attending Dr: Eligio Soni MD Ordering Provider: [...] Eligio Soni MD08/24/2023 3:31 PM Dictation Location: [place] [address] Tech: Coby Gibson Transcribed By: [facility]O 08/24/23 1531 Dictated By: Eligio Soni MD 08/24/23 1531 Signed By: 08/24/23 1531 [place] Ambulatory Visit Summaryon 1 10-21-2022 Ambulatory Visit [...] SCHUSTER, Haider Bee Where: [facility] [place] Invalid Interpretation Code [address] [place] [address]- \.br \ Monday 9:30 AM EDT \.br\ [...] kidney d (more content not included)... Normal [facility] Comment on above: Result Comment: Elec tronically [...] oz glass (more content not included)... Normal [facility] Pre-Visit Planningon 023 Pre-Visit Planning - From: Ceci Yu To: Kristofer SCHUSTER, Haider Bee; Sent: 08/17/2023 10:44:28 EST Subject: Pre-Visit Planning Due Date/Time: 08/17/2023 10:44:00 EST Caller Name: DONG WHITMORE; Caller Number: H , B [phone] Wa Dr. Hickman. During a pre-visit planning chart [...] feel free to contact me at extension [phone]. Thank you! Ceci Yu LPN Invalid Interpretation Code 272 [facility] Consultation Noteon 08-10-20 Consultation Note [id number]#1.0 0TIFF Normal [facility] Family Medicine Office/Clini c Noteon 07-26-2023 Family [...] continue to monitor along. Ordered: A1c POC 65932 Body Mass Index (BMI) documented 3008F Current [...] disease) - As above Ordered: A1c POC 65202 Body Mass Index (BMI) documented 3008F Current [...] stage 3a) - Stable Ordered: A1c POC 63931 Body Mass Index (BMI) documented 3008F Current [...] - No new issues Ordered: A1c POC 49159 Body Mass Index (BMI) documented 3008F Current [...] - BMI education given Ordered: A1c POC 34014 Body Mass Index (BMI) documented 3008F Current [...] last ye (more content not included)... Normal [facility] Comment on above: Result Comment: Elec tronically [...] numbers. This can be done either in Filipino ([place] or metric measurements. Note that charts and online BMI calculators are available to help you find your BMI quickly and easily without having to do these calculations yourself. To calculate your BMI in Filipino (U.[place] measurements: 1. Measure your weight in [...] for Disease Control and Prevention: www.cdc.gov ? [place] Heart Association: www.heart.org ? National Heart, Lung, and Blood Belcher: www.nhlbi.nih.gov Summary ? Body mass index (BMI) is a number that is calculated from a person's weight and height. ? BMI may help estimate how much of a person's weight is composed of fat. BMI can help identify those who may be at higher risk for certain medical problems. ? BMI can be measured using Filipino measurements or metric measurements. ? BMI charts are used to identify whether you are underweight, normal weight, overweight, or obese. This information is not intended to replace advice given to you by your health care provider. Make sure you discuss any questions you have with your health care provider. Document Revised: 06/17/2020 Document Reviewed: 04/24/2020 [employer] Patient Education ? 2022 [employer]. [facility] Physician Referralon 023 Physician Referral [id number]#1. 00TIFF [facility] Pre-Visit Planningon 023 Pre-Visit Planning - From: Ceci Yu To: Kristofer CSHUSTER, Haider Bee; Sent: 07/24/2023 15:20:33 EDT Subject: Pre-Visit Planning Due Date/Time: 07/24/2023 15:20:00 EDT Caller Name: DONG WHITMORE; Caller Number: H , B [phone] Wa Dr. Hickman. During a pre-visit planning chart [...] feel free to contact me at extension [phone]. Thank you! Ceci Yu LPN From: Kristofer SCHUSTER, Haider Bee To: Ceci Yu; Sent: 07/24/2023 16:58:10 EDT Subject: RE: Pre-Visit Planning Caller Name: DONG WHITMORE; Caller Number: H , B [phone] OK to add the first one. Thank you Normal [address] [place] [address] Consultation Noteon 10-11-20 23 Consultation Note [id number]#1.0 0TIFF [facility] Operative Reporton Operative Report [id number]#1.0 0TIFF [facility] Consultation Noteon 07-03-20 Consultation Note [id number]#1.00 CD:127 [facility] Nursing Note - Woundon 06-28 Nursing Note - Wound [id number]#2. 00CD:127 [facility] Physician Referralon 023 Physician Referral [id number]#1.00 CD:127 [facility] Consent for Procedure/Surger yon 06-26-2023 Consent for Procedure/Surgery [id number]#1.0 0CD:127 [facility] Consent for Treatmenton 06-09 Consent for Treatment [id number]#1.0 0CD:127 [facility] Multi-Wound Charton 06-26-20 Multi-Wound Chart [id number] 90 [id number]#1. 00CD:127 [facility] Nursing Assessment - Woundon 06-26-2023 Nursing Assessment - Wound [id number]#1. 00CD:127 [facility] Physician Orderon 06-26-2023 Physician Order [id number]#1. 00CD:127 [facility] Progress Note - Woundon 06-09 Progress Note - Wound [id number]#1. 00CD:127 [facility] Operative Reporton 3 Operative Report [id number]#1.00 CD:127 Normal [facility] Operative Reporton 3 Operative Report [id number]#1.0 0CD:127 Normal [facility] A1C HEMOGLOBINon 02-14-2023 HbA1c (Bld) [Mass fraction] 7.6 % [employer] Other Glucose - FINGER STICKon Glucose [Mass/Vol] 215 mg/dL [employer] Other HbA1c (Bld) [Mass fraction]o n 02-14-2023 A1C [facility]OGLOBIN [facility] Other ECHOCARDIO M/2D COMPLETEon 0 12-30-2022 ECHOCARDIO M/2D COMPLETE Patient: DONG WHITMORE Exam Date: 12/30/2022 : 1950 Gender:M Ordering : MARY APARICIO [facility] Admission #: [id number] Family : Order #: [id number] CLICK HERE TO VIEW EXAM ECHOCARDIOGRAM REPORT [...] Thibodeaux M.D. on 12/30/2022 at 18:49 Normal [facility] NM STRESS/REST MULTIon 12-29 NM STRESS/REST MULTI Patient: DONG WHITMORE Exam Date: 12/29/2022 : 1950 Gender:M Ordering : MARY APARICIO [facility] Admission #: [id number] Family : Order #: [id number] CLICK HERE TO VIEW EXAM RADIOLOGY REPORT [...] Morales M.D. on 12/30/2022 at 09:41 Normal [facility] MAMI DOP LEG RTon 12-09-19 23 [...] by: MORGAN ROJO Date: 2022-12-08 16:15 Normal [facility] TSHon 11-25-2022 TSH 2.370 uIU/mL Normal 0.358-3.740 [facility] Comment on above: Performed By: #### T SH #### [facility] [address] [place] [address] Dr. Eli Jarvis BNPon 11-08-2022 Natriuretic peptide B (Bld) [Mass/Vol] 122.0 pg/mL Normal <=900.0 [facility] Comment on above: Performed By: #### C MP, BNP #### [facility] [address] [address] [address] Eli Jarvis CBC AUTO DIFFon 11-08-2022 BASO # 0.1 103/ul Normal 0.0-0.1 [facility] Comment on above: Performed By: #### C BC ####[facility] [address] [address]DrSuzie Jarvis Basophils/100 WBC (Bld) 0.7 % Normal 0.2-2.0 [facility] Comment on above: Performed By: #### C BC ####[facility] [address] [place], [place] [address]DrSuzie Jarvis EO # 0.2 103/ul Normal 0.0-0.7 [facility] Comment on above: Performed By: #### C BC ####[facility] [address] [place], [place] [address]Dr. Eli Jarvis Eosinophils/100 WBC (Bld) 3.5 % Normal 0.9-7.0 [facility] Comment on above: Performed By: #### C BC ####[facility] [address] [address]DrSuzie Jarvis Erythrocyte distribution width (RBC) [Ratio] 13.8 % Normal 11.0-15.0 [facility] Comment on above: Performed By: #### C BC ####[facility] [address] [place], [place] [address]DrSuzie Jarvis Hematocrit (Bld) [Volume fraction] 42.0 % Normal 42.0-54.0 [facility] Comment on above: Performed By: #### C BC ####[facility] [address] [id number]. Eli Jarvis Hemoglobin (Bld) [Mass/Vol] 13.8 g/dL Critically low 14.0-18.0 [facility] Comment on above: Performed By: #### C BC ####[facility] [address] [address]Dr. Eli Jarvis IG # 0.03 10e3/ul Normal 0.00-0.03 [facility] Comment on above: Performed By: #### C BC ####[facility] [address] [address]Dr. Eli Jarvis IG % 0.4 % Normal 0.0-0.5 [facility] Comment on above: Performed By: #### C BC ####[facility] [address] [address]Dr. Eli Jarvis LYMPH # 1.3 103/ul Normal 1.2-3.8 [facility] Comment on above: Performed By: #### C BC ####[facility] [address] [place], [place] [address]Dr. Eli Jarvis Lymphocytes/100 WBC (Bld) 18.8 % Critically low 20.5-60.0 [facility] Comment on above: Performed By: #### C BC ####[facility] [address] [address]Dr. Eli Jarvis MANUAL DIFF REQ NO Normal [facility] Comment on above: Performed By: #### C BC ####[facility] [address] [address]Dr. Eli Jarvis MCH (RBC) [Entitic mass] 27.8 pg Normal 25.9-34.0 [facility] Comment on above: Performed By: #### C BC ####[facility] [address] [place], [place] [address]Dr. Eli Jarvis MCHC (RBC) [Mass/Vol] 32.9 g/dL Normal 29.9-35.2 [facility] Comment on above: Performed By: #### C BC ####[facility] [address] [id number]. Eli Jarvis MCV (RBC) [Entitic vol] 84.7 fL Normal 80.0-94.0 [facility] Comment on above: Performed By: #### C BC ####[facility] [address] [address]Dr. Eli Jarvis MONO # 0.6 103/ul Normal 0.3-0.8 [facility] Comment on above: Performed By: #### C BC ####[facility] [address] [address]Dr. Eli Jarvis Monocytes/100 WBC (Bld) 8.5 % Normal 1.7-12.0 [facility] Comment on above: Performed By: #### C BC ####[facility] [address] [address]Dr. Eli Jarvis NEUT # 4.7 103/ul Normal 1.4-6.5 [facility] Comment on above: Performed By: #### C BC ####[facility] [address] [address]Dr. Eli Jarvis Neutrophils/100 WBC (Bld) 68.1 % Normal 43.0-75.0 [facility] Comment on above: Performed By: #### C BC ####[facility] [address] [address]Dr. Eli Jarvis Platelet mean volume (Bld) [Entitic vol] 10.3 fL Normal 9.5-13.5 [facility] Comment on above: Performed By: #### C BC ####[facility] [address] [address]Dr. Eli Jarvis PLT 189 103/ul Normal 150-450 [facility] Comment on above: Performed By: #### C BC ####[facility] [address] [address]Dr. Eli Jarvis RBC 4.96 106/ul Normal 4.70-6.10 [facility] Comment on above: Performed By: #### C BC ####[facility] [address] [place], [place] [address]Dr. Eli Jarvis WBC 7.0 103/ul Normal 4.0-11.0 [facility] Comment on above: Performed By: #### C BC ####[facility] [address] [address]Dr. Eli Jarvis PROF 14(COMP METB)on 023 Albumin [Mass/Vol] 3.6 g/dL Normal 3.4-5.0 [facility] Comment on above: Performed By: #### C MP, BNP #### [facility] [address] [address] [address] Eli Jarvis Albumin/Globulin [Mass ratio] 1.1 {ratio} Normal [facility] Comment on above: Performed By: #### C MP, BNP #### [facility] [address] [address] [address] Eli Jarvis ALP [Catalytic activity/Vol] 90 U/L Normal 46-116 [facility] Comment on above: Performed By: #### C MP, BNP #### [facility] [address] [address] [address] Eli Jarvis ALT [Catalytic activity/Vol] 42 U/L Normal 16-63 [facility] Comment on above: Performed By: #### C MP, BNP #### [facility] [address] [place] [address] Dr. Eli Jarvis Anion gap [Moles/Vol] 13.5 mmol/L Normal [facility] Comment on above: Performed By: #### C MP, BNP #### [facility] [address] [address] [address] Eli Jarvis AST [Catalytic activity/Vol] 26 U/L Normal 15-37 [facility] Comment on above: Performed By: #### C MP, BNP #### [facility] [address] [address] [address] Eli Jarvis Bilirubin [Mass/Vol] 0.4 mg/dL Normal 0.2-1.0 [facility] Comment on above: Performed By: #### C MP, BNP #### [facility] [address] [address] [address] Eli Jarvis Calcium [Mass/Vol] 9.3 mg/dL Normal 8.5-10.1 [facility] Comment on above: Performed By: #### C MP, BNP #### [facility] [address] [place] [address] Dr. Eli Jarvis Chloride [Moles/Vol] 104 mmol/L Normal 98-107 [facility] Comment on above: Performed By: #### C MP, BNP #### [facility] [address] [place] [address] Dr. Eli Jarvis CO2 [Moles/Vol] 25.7 mmol/L Normal 21.0-32.0 [facility] Comment on above: Performed By: #### C MP, BNP #### [facility] [address] [place] [address] Dr. Eli Jarvis Creatinine [Mass/Vol] 1.32 mg/dL Critically high 0.70-1.30 [facility] Comment on above: Performed By: #### C MP, BNP #### [facility] [address] [place] [address] Dr. Eli Jarvis EGFR-AF SUDANESE >60 Normal >=60 [facility] Comment on above: Performed By: #### C MP, BNP #### [facility] [address] [place] [address] Dr. Eli Jarvis EGFR-NON AF SUDANESE 53 mL/min/1.73m2 Critically low >=60 [facility] Comment on above: Performed By: #### C MP, BNP #### [facility] [address] [place] [address] Dr. Eli Jarvis Globulin (S) [Mass/Vol] 3.3 g/dL Normal [facility] Comment on above: Performed By: #### C MP, BNP #### [facility] [address] [place] [address] Dr. Eli Jarvis Glucose [Mass/Vol] 154 mg/dL Critically high 74-106 [facility] Comment on above: Performed By: #### C MP, BNP #### [facility] [address] [place], [place] [address] Dr. Eli Jarvis Potassium [Moles/Vol] 4.2 mmol/L Normal 3.5-5.1 [facility] Comment on above: Performed By: #### C MP, BNP #### [facility] [address] [place] [address] Dr. Eli Jarvis Protein [Mass/Vol] 6.9 g/dL Normal 6.4-8.2 [facility] Comment on above: Performed By: #### C MP, BNP #### [facility] [address] [address] [address] Eli Jarvis Sodium [Moles/Vol] 139 mmol/L Normal 136-145 [facility] Comment on above: Performed By: #### C MP, BNP #### [facility] [address] [place] [address] Dr. Eli Jarvis Urea nitrogen [Mass/Vol] 23.0 mg/dL Critically high 7.0-18.0 [facility] Comment on above: Performed By: #### C MP, BNP #### [facility] [address] [place] [address] Dr. Eli Jarvis Urea nitrogen/Creatinine [Mass ratio] 17.4 mg/mg Normal [facility] Comment on above: Performed By: #### C MP, BNP #### [facility] [address] [place] [address] Dr. Eli Jarvis A1C HEMOGLOBINon 11-07-2022 HbA1c (Bld) [Mass fraction] 7.6 % [employer] Other Glucose - FINGER STICKon Glucose [Mass/Vol] 172 mg/dL [employer] Other HbA1c (Bld) [Mass fraction]o n 11-07-2022 A1C HEMOGLOBIN [employer] Other US KIDNEYSon 2022 [place] KIDNEYS EXAMINATION: [...] by: MORGAN ROJO Date: 2022 18:30 Normal [facility] A1C HEMOGLOBINon 07-27-2022 HbA1c (Bld) [Mass fraction] 7.2 % [employer] Other Glucose - FINGER STICKon Glucose [Mass/Vol] 160 mg/dL [employer] Other HbA1c (Bld) [Mass fraction]o n 07-27-2022 A1C HEMOGLOBIN [employer] Other A1C HEMOGLOBINon 04-21-2022 HbA1c (Bld) [Mass fraction] 7.6 % [employer] Other Glucose - FINGER STICKon Glucose [Mass/Vol] 184 mg/dL [employer] Other HbA1c (Bld) [Mass fraction]o n 04-21-2022 A1C HEMOGLOBIN [employer] Other [employer] Creat Ratio,Uon Albumin DL <= 20 mg/L (U) [Mass/Vol] 10.3405268 mg/dL High 0.0-1.8 mg/dL [employer] Other Albumin/Creatinine DL <= 20 mg/L (U) [Mass ratio] 70.028473 mg/g High 0.0-30.0 mg/g [employer] Other Creatinine (U) [Mass/Vol] 493.1194873 mg/dL [employer] Other CBC AUTO DIFFon 04-07-2022 BASO # 0.0 103/ul Normal 0.0-0.1 [facility] Comment on above: Performed By: #### C BC #### [facility] [address] [address] [address] Eli Jarvis Basophils/100 WBC (Bld) 0.6 % Normal 0.2-2.0 [facility] Comment on above: Performed By: #### C BC #### [facility] [address] [address] [address] Eli Jarvis EO # 0.2 103/ul Normal 0.0-0.7 [facility] Comment on above: Performed By: #### C BC #### [facility] [address] [place] [address] Dr. Eli Jarvis Eosinophils/100 WBC (Bld) 2.9 % Normal 0.9-7.0 [facility] Comment on above: Performed By: #### C BC #### [facility] [address] [address] [address] Eli Jarvis Erythrocyte distribution width (RBC) [Ratio] 13.8 % Normal 11.0-15.0 [facility] Comment on above: Performed By: #### C BC #### [facility] [address] [address] [address] Eli Jarvis Hematocrit (Bld) [Volume fraction] 40.7 % Critically low 42.0-54.0 [facility] Comment on above: Performed By: #### C BC #### [facility] [address] [address] [address] Eli Jarvis Hemoglobin (Bld) [Mass/Vol] 13.3 g/dL Critically low 14.0-18.0 [facility] Comment on above: Performed By: #### C BC #### [facility] [address] [address] [address] Eli Jarvis IG # 0.04 10e3/ul Critically high 0.00-0.03 [facility] Comment on above: Performed By: #### C BC #### [facility] [address] [place] [address] Dr. Eli Jarvis IG % 0.6 % Critically high 0.0-0.5 [facility] Comment on above: Performed By: #### C BC #### [facility] [address] [place] [address] Dr. Eli Jarvis LYMPH # 1.3 103/ul Normal 1.2-3.8 [facility] Comment on above: Performed By: #### C BC #### [facility] [address] [place] [address] Dr. Eli Jarvis Lymphocytes/100 WBC (Bld) 18.7 % Critically low 20.5-60.0 [facility] Comment on above: Performed By: #### C BC #### [facility] [address] [place] [address] Dr. Eli Jarvis MANUAL DIFF REQ NO Normal [facility] Comment on above: Performed By: #### C BC #### [facility] [address] [place] [address] Dr. Eli Jarvis MCH (RBC) [Entitic mass] 28.1 pg Normal 25.9-34.0 [facility] Comment on above: Performed By: #### C BC #### [facility] [address] [place] [address] Dr. Eli Jarvis MCHC (RBC) [Mass/Vol] 32.7 g/dL Normal 29.9-35.2 [facility] Comment on above: Performed By: #### C BC #### [facility] [address] [place] [address] Dr. Eli Jarvis MCV (RBC) [Entitic vol] 86.0 fL Normal 80.0-94.0 [facility] Comment on above: Performed By: #### C BC #### [facility] [address] [place] [address] Dr. Eli Jarvis MONO # 0.4 103/ul Normal 0.3-0.8 [facility] Comment on above: Performed By: #### C BC #### [facility] [address] [place] [address] Dr. Eli Jarvis Monocytes/100 WBC (Bld) 6.2 % Normal 1.7-12.0 [facility] Comment on above: Performed By: #### C BC #### [facility] [address] [address] [address] Eli Jarvis NEUT # 4.9 103/ul Normal 1.4-6.5 [facility] Comment on above: Performed By: #### C BC #### [facility] [address] [place] [address] Dr. Eli Jarvis Neutrophils/100 WBC (Bld) 71.0 % Normal 43.0-75.0 [facility] Comment on above: Performed By: #### C BC #### [facility] [address] [place] [address] Dr. Eli Jarvis Platelet mean volume (Bld) [Entitic vol] 9.9 fL Normal 9.5-13.5 [facility] Comment on above: Performed By: #### C BC #### [facility] [address] [place] [address] Dr. Eli Jarvis PLT 184 103/ul Normal 150-450 [facility] Comment on above: Performed By: #### C BC #### [facility] [address] [place] [address] Dr. Eli Jarvis RBC 4.73 106/ul Normal 4.70-6.10 [facility] Comment on above: Performed By: #### C BC #### [facility] [address] [place] [address] Dr. Eli Jarvis WBC 6.9 103/ul Normal 4.0-11.0 [facility] Comment on above: Performed By: #### C BC #### [facility] [address] [place] [address] Dr. Eli Jarvis LIPID PROFILEon 04-07-2022 CHOL-HDL RATIO NORM SEE BELOW Normal [facility] Comment on above: Result Comment: 3.3 - 4.4 LOW RISK 4.4 - 7.1 AVERAGE RISK 7.1 - 11.0 MODERATE RISK >11.0 HIGH RISK Performed By: #### C MP, LIPID ####[facility] [address] [id number]. Eli Jarvis Cholesterol [Mass/Vol] 127 mg/dL Normal <=200 [facility] Comment on above: Performed By: #### C MP, LIPID ####[facility] [address] [place], [place] [address]Cn. Eli Jarvis Cholesterol in HDL [Mass/Vol] 36 mg/dL Critically low 40-60 [facility] Comment on above: Performed By: #### C MP, LIPID ####[facility] [address] [id number]. Eli Jarvis Cholesterol in LDL [Mass/Vol] 58.4 mg/dL Normal [facility] Comment on above: Performed By: #### C MP, LIPID ####[facility] [address] [address]Dr. Eli Jarvis Cholesterol.total/Ch olesterol in HDL [Mass ratio] 3.5 {ratio} Normal [facility] Comment on above: Performed By: #### C MP, LIPID ####[facility] [address] [id number]. Eli Jarvis HDL NORMAL > or = 60 mg/dl - LO W CARDIOVASCULAR RISK <40 mg/dl - HIGH CARDIOVASCULAR RISK Normal [facility] Comment on above: Performed By: #### C MP, LIPID ####[facility] [address] [id number]. Eli Jarvis LDL CALC NORMAL SEE BELOW Normal [facility] Comment on above: Result Comment: <100 mg/dl OPTIMAL 100 - 129 mg/dl NEAR OR ABOVE OPTIMAL 130 - 159 mg/dl BORDERLINE HIGH 160 - 189 mg/dl HIGH >190 mg/dl VERY HIGH Performed By: #### C MP, LIPID ####[facility] [address] [id number]. Eli Jarvis Triglyceride [Mass/Vol] 163 mg/dL Critically high <=150 [facility] Comment on above: Performed By: #### C MP, LIPID ####[facility] [address] [address]Dr. Eli Jarvis VLDL CALC 32.6 mg/dL Normal [facility] Comment on above: Performed By: #### C MP, LIPID ####[facility] [address] [address]Dr. Eli Jarvis PROF 14(COMP METB)on 022 Albumin [Mass/Vol] 3.8 g/dL Normal 3.4-5.0 [facility] Comment on above: Performed By: #### C MP, LIPID ####[facility] [address] [address]Dr. Eli Jarvis Albumin/Globulin [Mass ratio] 1.1 {ratio} Normal [facility] Comment on above: Performed By: #### C MP, LIPID ####[facility] [id number] [place] [address]Dr. Eli Jarvis ALP [Catalytic activity/Vol] 89 U/L Normal 46-116 [facility] Comment on above: Performed By: #### C MP, LIPID ####[facility] [address] [place] [address]Dr. Eli Jarvis ALT [Catalytic activity/Vol] 43 U/L Normal 16-63 [facility] Comment on above: Performed By: #### C MP, LIPID ####[facility] [address] [place] [address]Dr. Eli Jarvis Anion gap [Moles/Vol] 10.7 mmol/L Normal [facility] Comment on above: Performed By: #### C MP, LIPID ####[facility] [address] [place] [address]Dr. Eli Jarvis AST [Catalytic activity/Vol] 24 U/L Normal 15-37 [facility] Comment on above: Performed By: #### C MP, LIPID ####[facility] [address] [place] [address]Dr. Eli Jarvis Bilirubin [Mass/Vol] 0.2 mg/dL Normal 0.2-1.0 [facility] Comment on above: Performed By: #### C MP, LIPID ####[facility] [address] [place] [id number]. Eli Jarvis Calcium [Mass/Vol] 9.1 mg/dL Normal 8.5-10.1 [facility] Comment on above: Performed By: #### C MP, LIPID ####[facility] [address] [place] [id number]. Eli Jarvis Chloride [Moles/Vol] 104 mmol/L Normal 98-107 [facility] Comment on above: Performed By: #### C MP, LIPID ####[facility] [address] [place] [address]Dr. Eli Jarvis CO2 [Moles/Vol] 27.5 mmol/L Normal 21.0-32.0 [facility] Comment on above: Performed By: #### C MP, LIPID ####[facility] [address] [place], [place] [address]Dr. Eli Jarvis Creatinine [Mass/Vol] 1.15 mg/dL Normal 0.70-1.30 [facility] Comment on above: Performed By: #### C MP, LIPID ####[facility] [address] [place] [address]Dr. Eli Jarvis EGFR-AF SUDANESE >60 Normal >=60 [facility] Comment on above: Performed By: #### C MP, LIPID ####[facility] [address] [place] [address]Dr. Eli Jarvis EGFR-NON AF SUDANESE >60 Normal >=60 [facility] Comment on above: Performed By: #### C MP, LIPID ####[facility] [address] [place] [address]Dr. Eli Jarvis Globulin (S) [Mass/Vol] 3.4 g/dL Normal [facility] Comment on above: Performed By: #### C MP, LIPID ####[facility] [address] [place] [address]Dr. Eli Jarvis Glucose [Mass/Vol] 157 mg/dL Critically high 74-106 [facility] Comment on above: Performed By: #### C MP, LIPID ####[facility] [address] [place], [place] [address]Fu. Eli Jarvis Potassium [Moles/Vol] 4.2 mmol/L Normal 3.5-5.1 [facility] Comment on above: Performed By: #### C MP, LIPID ####[facility] [address] [place], [place] [address]Fr. Eli Jarvis Protein [Mass/Vol] 7.2 g/dL Normal 6.4-8.2 [facility] Comment on above: Performed By: #### C MP, LIPID ####[facility] [address] [place] [id number]. Eli Jarvis Sodium [Moles/Vol] 138 mmol/L Normal 136-145 [facility] Comment on above: Performed By: #### C MP, LIPID ####[facility] [address] [place] [id number]. Eli Jarvis Urea nitrogen [Mass/Vol] 26.0 mg/dL Critically high 7.0-18.0 [facility] Comment on above: Performed By: #### C MP, LIPID ####[facility] [address] [place] [id number]. Eli Jarvis Urea nitrogen/Creatinine [Mass ratio] 22.6 mg/mg Normal [facility] Comment on above: Performed By: #### C MP, LIPID ####[facility] [address] [place] [id number]. Eli Jarvis A1C HEMOGLOBINon 10-21-2021 HbA1c (Bld) [Mass fraction] 6.6 % [employer] Other Glucose - FINGER STICKon Glucose [Mass/Vol] 169 mg/dL [employer] Other HbA1c (Bld) [Mass fraction]o n 10-21-2021 A1C HEMOGLOBIN [employer] Other Comprehensive Metabolic Pane deann 07-29-2021 Albumin [Mass/Vol] 3.9 g/dL 3.2-5.5 [employer] Other Albumin/Globulin [Mass ratio] 1.6 {ratio} [facility] [employer] Other ALP [Catalytic activity/Vol] 63 U/L 32-92 [employer] Other ALT [Catalytic activity/Vol] 32 U/L 10-60 [employer] Other AST [Catalytic activity/Vol] 32 U/L 10-42 [employer] Other Bilirubin [Mass/Vol] 0.5 mg/dL 0.3-1.2 [facility] [employer] Other Calcium [Mass/Vol] 9.7 mg/dL 8.2-10.2 [employer] Other Chloride [Moles/Vol] 105 mmol/L 95-114 [facility] [employer] Other CO2 [Moles/Vol] 22.7 mmol/L 22.0-30.0 [facility] [employer] Other Creatinine [Mass/Vol] 1.28 mg/dL 0.64-1.27 [employer] Other Glucose [Mass/Vol] 111 mg/dL 70-100 [employer] Other Potassium [Moles/Vol] 4.1 mmol/L 3.5-5.1 [employer] Other Protein [Mass/Vol] 6.3 g/dL 6.1-7.9 [employer] Other Sodium [Moles/Vol] 139 mmol/L 136-146 [employer] Other Urea nitrogen [Mass/Vol] 23 mg/dL 9-23 [employer] Other Comprehensive Metabolic Panel 55 [employer] Other Comprehensive Metabolic Panel > 60 [employer] Other Comprehensive Metabolic Panel 2.4 [employer] Other Hepatitis Acute Panelon 10-2 Hepatitis Acute Panel Negative Negative [employer] [facility] [employer] Other Hepatitis Acute Panel <0.1 0.0-0.9 [employer] Other Vital Signs Date Time Vital Sign Value Performing Clinician Facility 04-24-2024 08:50-0400 Body height 170.2 cm Chiqui Robles MD Work Phone: [facility] 04-24-2024 08:50-0400 Body mass index (BMI) [Ratio] 42.28 kg/m2 Chiqui Robles MD Work Phone: [facility] 04-24-2024 08:50-0400 Body weight 122.47 kg Chiqui Robles MD Work Phone: [facility] 04-24-2024 08:50-0400 Diastolic blood pressure 89 mm[Hg] Chiqui Robles MD Work Phone: [facility] 04-24-2024 08:50-0400 Heart rate 61 /min Chiqui Robles MD Work Phone: [facility] 04-24-2024 08:50-0400 SaO2% (BldA) [Mass fraction] 95 % Chiqui Robles MD Work Phone: [facility] 04-24-2024 08:50-0400 Systolic blood pressure 122 mm[Hg] Chiqui Robles MD Work Phone: [facility] 02-29-2024 13:41-0400 Body height 170.2 cm Herberth Araujo MD, PhD Work Phone: [facility] 02-29-2024 13:41-0400 Body mass index (BMI) [Ratio] 42.29 kg/m2 Herberth Araujo MD, PhD Work Phone: [facility] 02-29-2024 13:41-0400 Body temperature 97.39 [degF] Herberth Araujo MD, PhD Work Phone: [facility] 02-29-2024 13:41-0400 Body weight 122.47 kg Herberth Araujo MD, PhD Work Phone: [facility] 02-29-2024 13:41-0400 Diastolic blood pressure 73 mm[Hg] Herberth Araujo MD, PhD Work Phone: [facility] 02-29-2024 13:41-0400 Heart rate 62 /min Herberth Araujo MD, PhD Work Phone: [facility] 02-29-2024 13:41-0400 SaO2% (BldA) [Mass fraction] 94 % Herberth Araujo MD, PhD Work Phone: [facility] 02-29-2024 13:41-0400 Systolic blood pressure 138 mm[Hg] Herberth Araujo MD, PhD Work Phone: [facility] 02-05-2024 12:17-0400 Body weight 124.74 kg Francoise Singletary MD Work Phone: [facility] 02-05-2024 12:17-0400 Diastolic blood pressure 70 mm[Hg] Francoise Singletary MD Work Phone: [facility] 02-05-2024 12:17-0400 Heart rate 80 /min Francoise Singletary MD Work Phone: [facility] 02-05-2024 12:17-0400 Systolic blood pressure 131 mm[Hg] Francoise Singletary MD Work Phone: [facility] 09-11-2023 11:00-0500 Body height 167.64 cm Tondra Mapus Other [facility] 09-11-2023 11:00-0500 Body mass index (BMI) [Ratio] 44.91 kg/m2 Tondra Mapus Other [employer] Other 09-11-2023 11:00-0500 Body weight 126.24 kg Tondra Mapus Other [employer] Other 09-11-2023 11:00-0500 Body weight 126.23 kg MD Scarlet Johnson Work Phone: [facility] 09-11-2023 11:00-0500 Diastolic blood pressure 82 mm[Hg] Tondra Mapus Other [facility] 09-11-2023 11:00-0500 Respiratory rate 18 /min Tondra Mapus Other [employer] Other 09-11-2023 11:00-0500 SaO2% (BldA) [Mass fraction] 99 % Tondra Mapus Other [facility] [employer] Other 09-11-2023 11:00-0500 Systolic blood pressure 153 mm[Hg] Tondra Mapus Other [facility] 08-24-2023 13:45-0500 Body height 167.64 cm Eligio Soni Other [facility] 08-24-2023 13:45-0500 Body mass index (BMI) [Ratio] 44.22 kg/m2 Eligio Soni Other [employer] Other 08-24-2023 13:45-0500 Body temperature 97.4 [degF] Eligio Soni Other [employer] Other 08-24-2023 13:45-0500 Body weight 124.29 kg Eligio Soni Other [employer] Other 08-24-2023 13:45-0500 Body weight 124.28 kg MD Scarlet Johnson Work Phone: [facility] 08-24-2023 13:45-0500 Diastolic blood pressure 60 mm[Hg] Eligio Soni Other [facility] 08-24-2023 13:45-0500 SaO2% (BldA) [Mass fraction] 97 % Eligio Soni Other [employer] Other 08-24-2023 13:45-0500 Systolic blood pressure 130 mm[Hg] Eligio Russellfabiola Other [facility] 03-07-2023 10:00-0400 Body height 167.64 cm Terry Kimblediff Other [employer] Other 03-07-2023 10:00-0400 Body mass index (BMI) [Ratio] 43.61 kg/m2 Terry Kimblediff Other [employer] Other 03-07-2023 10:00-0400 Body weight 122.56 kg Terrynikolai Kelley Other [employer] Other 03-07-2023 10:00-0400 Diastolic blood pressure 70 mm[Hg] Terry Kelley Other [employer] Other 03-07-2023 10:00-0400 Respiratory rate 20 /min Terry Rigoberto Other [employer] Other 03-07-2023 10:00-0400 SaO2% (BldA) [Mass fraction] 96 % Terrynikolai Kelley Other [employer] Other 03-07-2023 10:00-0400 Systolic blood pressure 134 mm[Hg] Terry Kelley Other [employer] Other 02-14-2023 09:45-0400 Body height 172.72 cm Aldo Juanita Other [employer] Other 02-14-2023 09:45-0400 Body mass index (BMI) [Ratio] 41.32 kg/m2 Tondra Mapus Other [employer] Other 02-14-2023 09:45-0400 Body weight 123.29 kg Tondra Mapus Other [employer] Other 02-14-2023 09:45-0400 Diastolic blood pressure 82 mm[Hg] Tondra Mapus Other [employer] Other 02-14-2023 09:45-0400 Respiratory rate 18 /min Tondra Mapus Other [employer] Other 02-14-2023 09:45-0400 SaO2% (BldA) [Mass fraction] 97 % Tondra Mapus Other [employer] Other 02-14-2023 09:45-0400 Systolic blood pressure 157 mm[Hg] Tondra Mapus Other [employer] Other 01-20-2023 12:15-0400 Body height 172.72 cm Carito Fitt Other [employer] Other 01-20-2023 12:15-0400 Body mass index (BMI) [Ratio] 40.71 kg/m2 Carito Fitt Other [employer] Other 01-20-2023 12:15-0400 Body weight 121.47 kg Carito Fitt Other [employer] Other 01-05-2023 11:15-0400 Body height 172.72 cm Terry Kelley Other [employer] Other 01-05-2023 11:15-0400 Body mass index (BMI) [Ratio] 40.96 kg/m2 Terry Kelley Other [employer] Other 01-05-2023 11:15-0400 Body weight 122.2 kg Terry Kelley Other [employer] Other 01-05-2023 11:15-0400 Diastolic blood pressure 73 mm[Hg] Terry Kimblediff Other [employer] Other 01-05-2023 11:15-0400 Respiratory rate 18 /min Terry Kelley Other [employer] Other 01-05-2023 11:15-0400 SaO2% (BldA) [Mass fraction] 98 % Terry Kelley Other [employer] Other 01-05-2023 11:15-0400 Systolic blood pressure 143 mm[Hg] Terry Kelley Other [employer] Other 11-24-2022 12:15-0500 Body height 172.72 cm Carito Fitt Other [employer] Other 11-24-2022 12:15-0500 Body mass index (BMI) [Ratio] 42.22 kg/m2 Carito Fitt Other [employer] Other 11-24-2022 12:15-0500 Body weight 125.96 kg Carito Fitt Other [employer] Other 11-18-2022 11:15-0500 Body height 172.72 cm Terry Kelley Other [employer] Other 11-18-2022 11:15-0500 Body mass index (BMI) [Ratio] 41.96 kg/m2 Terry Kelley Other [employer] Other 11-18-2022 11:15-0500 Body weight 125.19 kg Terry Kelley Other [employer] Other 11-18-2022 11:15-0500 Diastolic blood pressure 75 mm[Hg] Terry Kelley Other [employer] Other 11-18-2022 11:15-0500 Respiratory rate 18 /min Terry Kimblediff Other [employer] Other 11-18-2022 11:15-0500 SaO2% (BldA) [Mass fraction] 99 % Terry Kimblediff Other [employer] Other 11-18-2022 11:15-0500 Systolic blood pressure 148 mm[Hg] Terry Kimblediff Other [employer] Other 11-07-2022 10:15-0500 Body height 172.72 cm Tondrboom Grantus Other [employer] Other 11-07-2022 10:15-0500 Body mass index (BMI) [Ratio] 42.58 kg/m2 Tondra Mapus Other [employer] Other 11-07-2022 10:15-0500 Body weight 127.05 kg Tondra Mapus Other [employer] Other 11-07-2022 10:15-0500 Diastolic blood pressure 83 mm[Hg] Tondra Mapus Other [employer] Other 11-07-2022 10:15-0500 Respiratory rate 18 /min Tondra Mapus Other [employer] Other 11-07-2022 10:15-0500 SaO2% (BldA) [Mass fraction] 98 % Tondra Mapus Other [employer] Other 11-07-2022 10:15-0500 Systolic blood pressure 170 mm[Hg] Tondra Mapus Other [employer] Other 10-18-2022 15:00-0500 Body height 172.72 cm Carito Fitt Other [employer] Other 2022 16:15-0400 Body height 172.72 cm Carito Fitt Other [employer] Other 07-27-2022 12:00-0400 Body height 172.72 cm Tondra Mapus Other [employer] Other 07-27-2022 12:00-0400 Body mass index (BMI) [Ratio] 40.9 kg/m2 Tondra Mapus Other [employer] Other 07-27-2022 12:00-0400 Body weight 122.02 kg Tondra Mapus Other [employer] Other 07-27-2022 12:00-0400 Diastolic blood pressure 75 mm[Hg] Tondra Mapus Other [employer] Other 07-27-2022 12:00-0400 Respiratory rate 20 /min Tondra Mapus Other [employer] Other 07-27-2022 12:00-0400 SaO2% (BldA) [Mass fraction] 97 % Tondra Mapus Other [employer] Other 07-27-2022 12:00-0400 Systolic blood pressure 141 mm[Hg] Tondra Mapus Other [employer] Other 06-08-2022 10:45-0400 Body height 172.72 cm Carito Fitt Other [employer] Other 04-21-2022 12:00-0400 Body height 172.72 cm Tondra Mapus Other [employer] Other 04-21-2022 12:00-0400 Body mass index (BMI) [Ratio] 39.67 kg/m2 Tondra Mapus Other [employer] Other 04-21-2022 12:00-0400 Body weight 118.34 kg Tondra Mapus Other [employer] Other 04-21-2022 12:00-0400 Diastolic blood pressure 74 mm[Hg] Tondra Mapus Other [employer] Other 04-21-2022 12:00-0400 Respiratory rate 20 /min Tondra Mapus Other [employer] Other 04-21-2022 12:00-0400 SaO2% (BldA) [Mass fraction] 97 % Tondra Mapus Other [employer] Other 04-21-2022 12:00-0400 Systolic blood pressure 143 mm[Hg] Tondra Mapus Other [employer] Other 10-21-2021 12:00-0500 Body height 172.72 cm Tondra Mapus Other [employer] Other 10-21-2021 12:00-0500 Body mass index (BMI) [Ratio] 40.14 kg/m2 Tondra Mapus Other [employer] Other 10-21-2021 12:00-0500 Body weight 119.75 kg Tondra Mapus Other [employer] Other 10-21-2021 12:00-0500 Diastolic blood pressure 78 mm[Hg] Tondra Mapus Other [employer] Other 10-21-2021 12:00-0500 Respiratory rate 20 /min Tondra Mapus Other [employer] Other 10-21-2021 12:00-0500 SaO2% (BldA) [Mass fraction] 97 % Tondra Mapus Other [employer] Other 10-21-2021 12:00-0500 Systolic blood pressure 147 mm[Hg] Tondra Mapus Other [employer] Other 07-21-2021 15:45-0400 Body height 172.72 cm Morgan Joaquina Other [employer] Other 07-21-2021 15:45-0400 Body mass index (BMI) [Ratio] 38.77 kg/m2 Morgan Kunz Other [employer] Other 07-21-2021 15:45-0400 Body weight 115.67 kg Morgan Kunz Other [employer] Other 12-14-2017 15:17-0500 Body height 170.18 cm MD Scarlet Johnson Work Phone: [facility] Encounters Encounter Date Encounter Type Care Provider Facility Start: 11-06-2024 ambulatory Araceli [facility] Start: 07-17-2024 ambulatory Araceli BERMUDEZ Facility : [facility] Start: 07-03-2024 End: 07-03-2024 ambulatory HYACINTH D DOLCE Not Available Start: 07-01-2024 End: 07-01-2024 ambulatory MIHIR B APLING Not Available Start: 06-26-2024 End: 06-26-2024 ambulatory [facility] Start: 06-25-2024 End: 06-25-2024 ambulatory KAJAL R DOLCE Not Available Start: 06-19-2024 End: 06-19-2024 ambulatory Kajal R Dolce Facility[place] Start: 06-19-2024 End: 06-19-2024 ambulatory HYACINTH D DOLCE Not Available Start: 06-18-2024 End: 06-18-2024 ambulatory ANDREA AGUILAR Not Available Start: 06-12-2024 End: 06-12-2024 ambulatory Kajal R Dolce Facility:[facility] Start: 06-12-2024 End: 06-12-2024 ambulatory MIHIR B APLING Not Available Start: 06-07-2024 End: 06-07-2024 [facility] Britney Rodriguez PhD Work Phone: Pain Recovery Comment on above: Adjustment disorder with depressed mood (Primary Dx); Complex regional pain syndrome type II of right lower limb; Chronic toe pain, right foot Start: 06-05-2024 End: 06-05-2024 ambulatory Kajal R Dolce Facility:[facility] Start: 05-27-2024 End: 05-27-2024 ambulatory MIHIR PARISI Not Available Start: 05-23-2024 ambulatory Chiqui chapa MD Work Phone: Neurology Pain Comment on above: taking memantine HCL Start: 05-22-2024 End: 05-22-2024 ambulatory DAVID Boom DAVE Facility:[facility] [place] Start: 05-13-2024 End: 05-13-2024 ambulatory Haider Hickman Facility: [facility] [place] [facility] Start: 05-09-2024 End: 05-09-2024 ambulatory ANDREA AGUILAR Not Available Start: 05-07-2024 ambulatory Morgan Trinidad Therapist Work Phone: Pain Recovery Comment on above: next step, resources Start: 05-07-2024 E-mail encounter fro m caregiver Morgan Trinidad Therapist Work Phone: Pain Recovery Start: 05-06-2024 End: 05-06-2024 [facility] Morgan Trinidad Therapist Work Phone: Pain Recovery Comment on above: Adjustment disorder with depressed mood (Primary Dx); Complex regional pain syndrome type II of right lower limb; Chronic toe pain, right foot Start: 04-24-2024 End: 04-24-2024 ambulatory HERBERTH A [facility] Facility:[facility] Start: 04-24-2024 End: 04-24-2024 Patient encounter [...] End: 04-23-2024 ambulatory Haider Hickman Facility: [facility] [place] [facility] Start: 04-03-2024 End: 04-03-2024 ambulatory HERBERTH A [facility] Facility:[facility] Start: 03-26-2024 End: 03-26-2024 ambulatory Haider Hickman Facility:[facility] [place] Start: 03-19-2024 Telephone encounter Herberth meyers MD, PhD Work Phone: Pain Management Comment on above: Nurse Triage Call Start: 03-08-2024 End: 03-08-2024 ambulatory Haider Hickman Facility:[facility] Start: 03-07-2024 End: 03-07-2024 ambulatory Haider Hickman Facility:[facility] [place] Start: 02-29-2024 End: 02-29-2024 ambulatory HERBERTH ARAUJO Facility:[facility] Start: 02-29-2024 End: 02-29-2024 Patient encounter [...] Start: 02-05-2024 End: 02-05-2024 ambulatory FRANCOISE SINGLETARY Facility:[facility] Start: 02-05-2024 End: 02-05-2024 Patient encounter procedure Francoise Singletary MD Work Phone: Pain Management Comment on above: Chronic toe pain, ri ght foot (Primary Dx); Painful diabetic neuropathy (HCC); Class 3 severe obesity with serious comorbidity and body mass index (BMI) of 40.0 to 44.9 in adult, unspecified obesity type (HCC) Start: 01-24-2024 End: 01-24-2024 ambulatory Araceli BERMUDEZ Facility:[facility] Start: 01-22-2024 End: 01-22-2024 ambulatory MACY MCPHERSON Not Available Start: 01-04-2024 End: 01-04-2024 ambulatory Araecli BERMUDEZ Facility:[facility] Start: 01-03-2024 End: 01-03-2024 ambulatory MIHIR PARISI Not Available Start: 12-29-2023 End: 12-29-2023 ambulatory Araceli Mile BERMUDEZ Facility:[facility] Start: 12-26-2023 End: 12-26-2023 ambulatory Haider Hickman Facility:[facility] Start: 12-14-2023 End: 12-14-2023 ambulatory ANDREA AGUILAR Not Available Start: 12-04-2023 End: 12-05-2023 ambulatory Miguelangel Mac MD Facility:[facility] Start: 10-18-2023 End: 10-18-2023 ambulatory Araceli BERMUDEZ Facility:[facility] Start: 10-16-2023 End: 10-17-2023 ambulatory Miguelangel Mac MD Facility:[facility] Start: 10-05-2023 End: 10-05-2023 ambulatory ANDREA AGUILAR Not Available Start: 09-25-2023 End: 09-26-2023 ambulatory Miguelangel Mac MD Facility:[facility] Start: 09-20-2023 End: 09-20-2023 ambulatory [facility] Start: 09-12-2023 End: 09-12-2023 ambulatory Tondra Emi Other [employer] [facility] [employer] Other Start: 09-12-2023 Telephone encounter Tondra Middleton [facility] Start: 09-11-2023 (DM) Diabetes Tondra Mapus [facility] Start: 09-11-2023 End: 09-12-2023 ambulatory MD Scarlet Johnson Work Phone: [employer] Other Start: 09-11-2023 End: 09-11-2023 Discharged Recurring MD Scarlet Johnson Work Phone: [facility] Work Phone: Start: 09-11-2023 End: 09-11-2023 Patient encounter procedure MD Scarlet Johnson Work Phone: [facility]3] Work Phone: Start: 08-24-2023 End: 08-24-2023 Patient encounter procedure MD Scarlet Johnson Work Phone: [facility] Start: 08-24-2023 End: 08-24-2023 ambulatory MD Scarlet Johnson Work Phone: [facility] Work Phone: Start: 08-24-2023 Office outpatient ne w 60 minutes Eligio Soni [facility] Vascular Surgery Start: 08-24-2023 End: 08-24-2023 Patient encounter procedure MD Scarlet Johnson Work Phone: [facility] Vascular Surgery Work Phone: Start: 08-21-2023 End: 08-21-2023 ambulatory Haider Hickman Facility:[facility] [place] [facility] Start: 07-26-2023 End: 07-26-2023 ambulatory Haider Hickman Facility:[facility] [place] [facility] Start: 06-27-2023 ambulatory Haider Hickman Facility: [facility] Start: 06-26-2023 End: 06-26-2023 ambulatory Kaleb Mallory Facility:[facility] Start: 06-19-2023 End: 06-20-2023 ambulatory Miguelangel Mac MD Facility: [place] Start: 06-14-2023 End: 06-14-2023 ambulatory Tondra Mapus Other [facility] [employer] Other Start: 06-14-2023 Telephone encounter Tondra Mapus [facility] Start: 06-09-2023 End: 06-09-2023 ambulatory Carito West Other [facility] [employer] Other Start: 06-09-2023 Nursing evaluation o f patient and report Carito West [facility] Start: 06-09-2023 Registered Recurring MD Scarlet franks Work Phone: [facility] Work Phone: Start: 06-05-2023 End: 06-06-2023 ambulatory Miguelangel Mac MD Facility:[facility] Start: 05-31-2023 End: 05-31-2023 ambulatory Tondra Mapus Other [employer] Other Start: 05-31-2023 Telephone encounter Tondra Middleton [facility] Start: 05-22-2023 End: 05-23-2023 ambulatory Miguelangel Mac MD Facility:[facility] Start: 03-07-2023 Follow-up encounter [facility] Start: 03-07-2023 End: 03-08-2023 ambulatory Terry Kelley [employer] Other Start: 02-17-2023 End: 02-17-[address] JOVITA WOODARD . Facility:[facility] Start: 02-14-2023 (DM) Diabetes Tondra Emi [facility] Start: 02-14-2023 End: 02-14-2023 ambulatory Tondra Mapus Other [employer] Other Start: 01-20-2023 ([facility]3] RD FU) [facility]3] F/ U Registerd Sizing Sponger Carito West [facility] Start: 01-20-2023 End: 01-20-2023 ambulatory Carito West Other [employer] Other Start: 01-05-2023 End: 01-05-2023 ambulatory Teryr Kelley Other [employer] Other Start: 01-05-2023 Follow-up encounter Terry moreno [...] ambulatory DR TERRY KELLEY Facility:[facility] Start: 11-24-2022 ([facility]3] WMNI) WMN Initial Provider Carito West [facility] Start: 11-24-2022 End: 11-24-2022 ambulatory Carito West Other [employer] Other Start: 11-22-2022 End: 11-22-2022 ambulatory Tondra Mapus Other [employer] Other Start: 11-22-2022 Nursing evaluation o f patient and report Tona Juanitaus [facility] Start: 11-18-2022 End: 11-18-2022 ambulatory Terry Kelley Other [employer] Other Start: 11-18-2022 Nutrition therapy Terry Kelley [facility] Start: 11-08-2022 End: 11-09-[address] SCARLET JOHNSON . Facility:[facility] Start: 11-07-2022 (DM) Diabetes Tondra Mapus [facility] Start: 11-07-2022 End: 11-07-2022 ambulatory Tondra Mapus Other [employer] Other Start: 10-18-2022 (RD) Tooling Engineering Tech [facility] Start: 10-18-2022 End: 10-18-2022 ambulatory Carito West Other [employer] Other Start: 08-18-2022 End: 08-19-[address] BRITTNY MORALES Facility:[facility] Start: 2022 ([facility]3] DB FU) [facility]3] Diabetes F/U Carito West [facility] Start: 2022 End: 08-11-[address] ARACELI BERMUDEZ [employer] Other Start: 07-29-2022 End: 07-30-[address] SCARLET JOHNSON . Facility:[facility] Start: 07-27-2022 (DM) Diabetes Tondra Mapus [facility] Start: 07-27-2022 End: 07-27-2022 ambulatory Tondra Mapus Other [employer] Other Start: 06-08-2022 (Sizing Sponger) Sizing Sponger Carito Alston [facility] Start: 06-08-2022 End: 06-08-2022 ambulatory Carito West Other [employer] Other Start: 04-21-2022 (DM) Diabetes Tondra Mapus [facility] Start: 04-21-2022 End: 04-21-2022 ambulatory Tondra Mapus Other [employer] Other Start: 04-21-2022 Telephone encounter Tondra Mapus [facility] Start: 04-07-2022 End: 04-08-[address] SCARLET JOHNSON . Facility:[facility] Start: 10-21-2021 (DM) Diabetes Tondra Mapus [facility] Start: 10-21-2021 End: 10-21-2021 ambulatory Tondra Mapus Other [employer] Other Start: 07-21-2021 Office outpatient ne w [...] 10:00 AM EST Office Visit Neurology Pain [id number] [id number] Chiqui Robles MD [address] [place] [address] 1 Month Follow Up Neurology Pain Comment on above: 1 Month Follow Up Start: 06-09-2024 Influenza vaccination [facility] Start: 06-07-2024 End: 06-07-2024 ambulatory 06/07/2024 12:30 PM EDT [facility] [address] [place] [address] Britney Rodriguez, PhD [address] [place] [address] [facility] Comment on above: [facility] Start: 05-06-2024 End: 05-06-2024 ambulatory 05/06/2024 9:00 AM EDT [facility] [address] [place] [address] Morgan Trinidad, Therapist [address] [place] [address] PA[facility] PSYCH Pain Recovery Comment on above: PAIN PSYCH Start: 04-17-2024 End: 04-17-2024 Patient encounter procedure 04/17/2024 10:00 AM EDT Office Visit Pain Management [address] [place] [address] Eufemia Ortiz PA-C [address] [place] [address] SUTURAL REMOVAL Pain Management Comment on above: SUTURAL REMOVAL Start: 04-03-2024 End: 04-03-2024 Admission to same day surgery center 04/03/2024 10:00 AM EDT - 04/03/2024 11:05 AM EDT Surgery Pain Management [address] [place] [address] Herberth Araujo MD, PhD [address] [place] [address] Right L4 and L5 DRG Trial Pain [...] 10:00 AM EDT Hospital Encounter Pain Management [address] [place] [address] Herberth Araujo MD, PhD [address] [place] [address] Chronic toe pain, right foot [M79.674, G89.29], Complex regional pain syndrome type II of right lower limb [G57.71] Pain Management Comment on above: Chronic toe pain, ri ght foot [M79.674, G89.29], Complex regional pain syndrome type II of right lower limb [G57.71] Start: 10-09-2023 Advance Directive Discussion Advance Directive Discussion [facility] Start: 10-09-2023 Behavioral Health Screening Behavioral Health Screening [facility] Start: 06-09-2023 Covid-19 Vaccine ( season) Covid-19 Vaccine ( season) [facility] Start: 2014 Pneumococcal Vaccine : 65+ (1 of 1 - PCV) Pneumococcal Vaccine: 65+ (1 of 1 - PCV) [facility] Start: 2009 RSV Vaccine (1 - 1-d ose 60+ series) RSV Vaccine (1 - 1-dose 60+ series) [facility] Start: 1999 Shingrix Vaccine (1 of 2) Shingrix Vaccine (1 of 2) [facility] Start: 1994 Diabetes Screening Diabetes Screenin g [facility] Start: 1994 Screening for malign ant neoplasm of colon [facility] Start: 1984 Lipid panel Lipid Screening [facility] Start: 1968 Urine microalbumin profile DTaP,Tdap,Td Vaccine (1 - Tdap) [facility] Start: 1967 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 Manager hai Disease Visit Annual PCP Team Chronic Disease Visit [facility] Start: 1967 Anxiety Screening Anxiety Screening [facility] Start: 1967 Depression Screening Depression Scre ening [facility] Start: 1967 Hepatitis B surface antibody level LDL Cholesterol [facility] Start: 1967 Hepatitis C screening Hepatitis C Sc ang [facility] Start: 1959 Diabetic foot examination Diabetic Foot Exam [facility] Start: 1959 Glaucoma screening Dilated Retinal E xam [facility] Start: 1959 Hepatitis B screening Urine Albumin:Creatinine Ratio [facility] Start: 1955 Pneumococcal Vaccine : 65+ (1 of 2 - PCV) Pneumococcal Vaccine: 65+ (1 of 2 - PCV) [facility] Start: 1954 Hemoglobin A1c measurement HbA1C [facility] Immunizations Immunization Date Immunization Notes Care Provider Margarita sunshine 12-30-2020 COVID-19 Vaccine Mod gino - Documentation Purposes Only Morgan Kunz Other [facility] 12-02-2020 COVID-19 Vaccine Mod gino - Documentation Purposes Only Morgan Kunz Other [facility] Payers Date Payer Category Payer Unknown 2017 Self-pay [id number] 2017 Unknown [id number] 2012 Medicare 1959 Medicare [id number] 2.1 [id number] 1959 Unknown [id number] 2. 16.840.1.016440.19 1949 Unknown [id number] 2.16.84 0.1.203371.3.579.2.593 1949 Unknown [id number] 2.16.84 0.1.483556.3.579.2.593 1949 Unknown [id number] 2.16.84 0.1.448995.3.579.2.593 1949 Unknown [id number] 2.16.84 0.1.904806.3.579.2.593 1949 Unknown [id number] 2.16.84 0.1.716960.3.579.2.593 1949 Unknown [id number] 2.16.84 0.1.669370.3.579.2.593 1949 Unknown [id number] 2.16.84 0.1.984404.3.579.2.593 1949 Unknown [id number] 2.16.84 0.1.798484.3.579.2.593 1949 Unknown [id number] 2.16.84 0.1.960543.3.579.2.593 1949 Unknown [id number] 2.16.84 0.1.364611.3.579.2.593 1949 Unknown [id number] 2.16.84 0.1.929103.3.579.2.593 1949 Unknown [id number] 2.16.84 0.1.973409.3.579.2.593 1949 Unknown [id number] 2.16. 840.1.732618.3.579.2.196 1949 Unknown [id number] 2.16. 840.1.942352.3.579.2.196 1949 Unknown [id number] 2.16. 840.1.501595.3.579.2.196 1949 Unknown [id number] 2.16. 840.1.953679.3.579.2.196 1949 Unknown [id number] 2.16. 840.1.640567.3.579.2.196 1949 Unknown [id number] 2.16. 840.1.153393.3.579.2.196 1949 Unknown [id number] 2.16.8 40.1.895022.3.579.2.72 1949 Unknown [id number] 2.16.8 40.1.209392.3.579.2.72 1949 Unknown [id number] 2.16.8 40.1.639549.3.579.2.72 1949 Unknown [id number] 2.16.8 40.1.705266.3.579.2.72 1949 Unknown [id number] 2.16.8 40.1.221603.3.579.2.72 1949 Unknown [id number] 2.16.8 40.1.754879.3.579.2.72 1949 Unknown [id number] 2.16.8 40.1.682639.3.579.2.727 1949 Unknown [id number] 2.16.8 40.1.937343.3.579.2.72 1949 Unknown [id number] 2.16.8 40.1.064626.3.579.2.72 1949 Unknown [id number] 2.16.8 40.1.694234.3.579.2.72 1949 Unknown [id number] 2.16.8 40.1.681387.3.579.2. 1949 Unknown [id number] 2.16.8 40.1.573164.3.579.2.72 1949 Unknown [id number] 2.16.8 40.1.935850.3.579.2.727 1949 Unknown [id number] 2.16.8 40.1.294414.3.579.2. 1949 Unknown [id number] 2.16.8 40.1.032680.3.579.2. 1949 Unknown [id number] 2.16.8 40.1.261381.3.579.2. 1949 Unknown [id number] 2.16.8 40.1.691493.3.579.2. 1949 Unknown [id number] 2.16.8 40.1.094600.3.579.2. 1949 Unknown [id number] 2.16.8 40.1.712897.3.579.2. 1949 Unknown [id number] 2.16.8 40.1.713650.3.579.2. 1949 Unknown [id number] 2.16.8 40.1.723437.3.579.2. 1949 Unknown [id number] 2.16.8 40.1.412019.3.579.2. 1949 Unknown [id number] 2.16.8 40.1.359115.3.579.2.7 1949 Unknown [id number] 2.16.84 0.1.845792.3.579.2.1258 1949 Unknown [id number] 2.16.84 0.1.801434.3.579.2.125 1949 Unknown [id number] 2.16.84 0.1.406072.3.579.2.1258 1949 Unknown [id number] 2.16.84 0.1.123759.3.579.2.1258 1949 Unknown [id number] 2.16.84 0.1.287993.3.579.2.1258 1949 Unknown [id number] 2.16.84 0.1.120835.3.579.2.1259 1949 Unknown [id number] 2.16.84 0.1.903628.3.579.2.1259 1949 Unknown [id number] 2.16.84 0.1.957750.3.579.2.1259 1949 Unknown [id number] 2.16.84 0.1.938851.3.579.2.1259 1949 Unknown [id number] 2.16.84 0.1.798229.3.579.2.125 1949 Unknown [id number] 2.16.84 0.1.905046.3.579.2.1259 1949 Unknown [id number] 2.16.84 0.1.771096.3.579.2.1259 1949 Unknown [id number] 2.16.84 0.1.145920.3.579.2.1259 1949 Unknown [id number] 2.16.84 0.1.731082.3.579.2.1259 1949 Unknown [id number] 2.16.840 .1.635650.3.579.2.1259 Unknown Standard [facility] Ins [id number] Unknown [id number] 2.16.8 40.1.863204.3.579.2.531 Unknown [id number] 2.16.8 40.1.252204.3.579.2.531 Unknown [id number] 2.16.8 40.1.931728.3.579.2.531 Social History Date Type Detail Facility Unknown if ever smoked [employer] Other Start: 02-05-2024 End: 04-17-2024 Sex Assigned At [facility] Start: 1950 Sex Assigned At Male F [facility] Start: 07-09-2018 End: 02-29-2024 Tobacco smoking status SCIS Never smoked tobacco (finding) [facility] Tobacco smoking status RUST Tobacco smoking consumption unknown [facility] Start: 02-05-2024 End: 04-17-2024 History of Social function [facility] National Score (1-100), lower number is lower risk 67 [facility] Start: 1950 Sex Assigned At Not on file C [facility] Start: 02-29-2024 Tobacco use and exposure Smokeless tobacco non-user [facility] Start: 02-29-2024 Alcohol intake Ex-drinker (finding) [facility] Medical Equipment Procedure Code Equipment [...] Type Note Facility 06-26-2024 Note Cardiovascular Medic [facility] SUBJECTIVE Chief Complaint Patient presents with [...] with lymphedema. He follows with endocrinology in [place]. He has MILLER - this is unchanged. [...] is currently at a [facility] at [facility]. He is seeing the clinical support nurse. 01/23/2023 He is down about 10lbs since [...] Obesity Sleep apnea Type 2 diabetes mellitus ([facility]) Complex regional pain syndrome type II of right lower limb Coronary arteriosclerosis in [place] artery Current use of insulin ([facility]) Dietary counseling and surveillance Past Medical History: Diagnosis Date CAD (coronary artery disease) DM type 2 (diabetes mellitus, type 2) ([facility]) HLD (hyperlipidemia) HTN (hypertension) Neuropathy [...] mg (more content not included)... [facility] 06-26-2024 Note Patient here for 1 y ear follow up CAD, hypertension, and hyperlipidemia. Had lipid panel this past December. Had foot surgery last week. Denies chest pain, SOB, palpitations, and lightheadedness/syncope. 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 Review of Systems Cardiovascular: Positive for leg swelling (RLE). Musculoskeletal: Positive for joint pain. All other systems reviewed and are negative. [facility] 06-07-2024 History of Present illness Narrative [facility] Behavioral [facility] Group Session I have communicated my name and active licensure. The patient's identity and physical location were verified at the time of this visit. Either the patient or their legal event representative has been informed of the risks [...] a copy of the consent form on [employer]. The patient consented to a virtual visit and their location was confirmed. Patient location: [facility] confirmed Patient Name: Dong Whitmore CC#: [id number] Date of service: June 07, 2024 Subjective: [...] additional pain management education Britney Rodriguez, PhD [phone] documented in this encounter [facility] 05-23-2024 Note Patient Education Infectious [...] these instructions at home: Medicines ? Take fyoj-kyb-nmuctol and prescription medicines only as told by [...] provider. Document Revised: 07/07/2022 Document Reviewed: 07/07/2022 [employer] Patient Education ? 2022 [employer]. [facility] 05-13-2024 Note Patient Education Endocrinology Correction Insulin [...] changing your diet, or holidays. ? New kygo-hui-xvhzimo or prescription medicines. ? Illness, stress, or [...] sure you disc (more content not included)... [facility] 05-06-2024 Note HNO ID: [id number] Author: MORGAN TRINIDAD, Therapist Service: ? Author Type: Therapist Type: Progress Notes Filed: 05/07/2024 08:20 Note Text: THE [facility] Psychological Evaluation May 06, 2024 Dong Whitmore [facility]#: [id number] I have communicated my name and active licensure. The patient's identity and physical location were verified at the time of this visit. Either the patient or their legal event representative has been informed of the risks and benefits of -- and alternatives to -- treatment through virtual visit and consents to proceed with the session remotely. The patient e-signed the Informed Consent for Psychological Evaluation AND Care Form, and the [facility] health care insurance benefits, fees for service, emergency procedures, and the limits of confidentiality that may pertain with any given case were discussed with the patient. The patient was given a copy of the consent form on [employer]. The patient consented to a virtual visit and their location was confirmed. Patient location: [place], [place] CPT Code: 3862028 Virtual Psych Diagnotic Eval Appointment Start: 9 AM This 73 year old retired for 15 years (he was having some medical problems, but they offered an early intermediate package that was attractive at the time) male lives with his in [place], [place]. 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 He was referred by Chiqui Robles MD for psychological evaluation in the context of chronic pain. This consultation was shared with the referral source via the [facility] electronic medical record. He believes [...] needed. pioglitazone (ACT (more content not included)... [facility] 04-24-2024 Note HNO ID: [id number] Author: CHIQUI ROBLES MD Service: ? Author Type: Physician Type: Progress Notes Filed: 04/24/2024 11:26 Note Text: [facility] STAFF PHYSICIAN NOTE OF PERSONAL INVOLVEMENT IN CARE IMPRESSION: Complex regional pain syndrome Adjustment Disorder Tried multiple injections, procedures, surgeries. No benefit Tried SCS and recently DRG without success. Discussed ketamine PLAN: Ketamine infusions Consider scrambler therapy Psych psychology Memantine 5mg Psychotherapy Add-on Progress Note Due to medical condition and comorbid psychological and behavioral concerns - psychotherapy was utilized during the visit. Nmbw-zv-yzei time: [id number] (16-37 mins) actual time spend in psychotherapy [...] which included preparing to see the patient, gmyd-lb-rqdn patient care, completing clinical documentation, performing a medically appropriate examination, and counseling and educating the patient/family/caregiver. As noted, the patient's clinical situation is complex and serious with significant comorbidity of pain and functional limitations. This requires higher levels of time, intensity, and expense with longitudinal care and support. STAFF PHYSICIAN:: Chiqui Robles MD DATE of SERVICE: 04/24/2024 [facility] 04-24-2024 History of Present illness Narrative [facility] STAFF PHYSICIAN NOTE OF PERSONAL INVOLVEMENT IN CARE IMPRESSION: Complex regional pain syndrome Adjustment Disorder Tried multiple injections, procedures, surgeries. No benefit Tried SCS and recently DRG without success. Discussed ketamine PLAN: Ketamine infusions Consider scrambler therapy Psych psychology Memantine 5mg Psychotherapy Add-on Progress Note Due to medical condition and comorbid psychological and behavioral concerns - psychotherapy was utilized during the visit. Pqme-iz-rtzf time: 22229 (16-37 mins) actual time spend in psychotherapy [...] which included preparing to see the patient, cdsb-pz-kjer patient care, completing clinical documentation, performing a medically appropriate examination, and counseling and educating the patient/family/caregiver. As noted, the patient's clinical situation is complex and serious with significant comorbidity of pain and functional limitations. This requires higher levels of time, intensity, and expense with longitudinal care and support. STAFF PHYSICIAN:: Chiqui Robles MD DATE of SERVICE: 04/24/2024 THE [facility] Neurological Belcher April 24, 2024 This is a face [...] Parish Tucker MD documented in this encounter [facility] 04-24-2024 Note HNO ID: [id number] Author: PARISH RIOS MD Service: ? Author Type: Resident Type: Progress Notes Filed: 04/24/2024 11:26 Note Text: [facility] Neurological Belcher April 24, 2024 This is a face [...] Memantine Pain psychology consult Parish Tucker MD [facility] 03-21-2024 Telephone encounter Note Spoke with patient and notified him of provider recommendations. Verbalized understanding. Emilee So RN [facility] 03-21-2024 Miscellaneous Notes Spoke with patient and notified him of provider recommendations. Verbalized understanding. Emilee So RN Ok per Dr Araujo to proceed with trial - still recommending to keep appt with ID Spoke with patient at request of environmental solutions engineer as patient has questions about referral to infectious disease. Patient states that he spoke with his PCP, Dr. Hickman ([phone]) who spoke with Dr. Vega in Infectious disease at [facility]. Dr. Hickman ordered lab work at [...] Emilee So RN documented in this encounter [facility] 03-21-2024 Telephone encounter Note Ok per Dr Mekhail to proceed with trial - still recommending to keep appt with ID [facility] Work Phone: 03-19-2024 Telephone encounter Note Spoke with patient at request of environmental solutions engineer as patient has questions about referral to infectious disease. Patient states that he spoke with his PCP, Dr. Hickman ([phone]) who spoke with Dr. Vgea in Infectious disease at [facility]. Dr. Hickman ordered lab work at [...] move forward as planned. Emilee So RN [facility] 03-15-2024 Note Microbiology PROCEDURE: Blood Culture Charcoal [R1] SOURCE: Blood BODY SITE: COLLECTED DATE/TIME: 03/08/2024 08:30 EDT RECEIVED DATE/TIME: 03/08/2024 09:02 EDT START DATE/TIME: 03/08/2024 09:02 EDT FREE TEXT SOURCE: michel Hickman MD, Haider Hickman MD, Haider Bee FINAL REPORTS Final Report [] Verified Date/Time: 03/15/2024 12:00 EDT No growth at 7 days. Performing Locations R1: This test was performed at: [facility], [address] [place] [address], [phone] , , [facility] Comment on above: Performed By: #### 1 [id number] #### [facility] [address] [place] [id number] 03-15-2024 Note Microbiology PROCEDURE: Blood Culture Charcoal [...] Locations R1: This test was performed at: [facility], [address] [place] [address], [phone]- , , [facility] Comment on above: Performed By: #### 1 [id number] #### [facility] [address] [place] [id number] 02-29-2024 Instructions Senthil Giraldo MD - 02/29/2024 1:38 PM EDT - Right DRG trial - Obtain psychological evaluation report (patient reports he just had this done ~two months ago) and send to [facility] Pain Management Center - ID consult - Rule out infectious risk with due to the dermatitis. - Follow up: Return to clinic for the above procedure documented in this encounter [facility] 02-29-2024 Note HNO ID: [id number] Author: HERBERTH ARAUJO MD, PhD Service: ? Author Type: Physician Type: Progress Notes Filed: 03/18/2024 19:05 Note Text: [facility] Pain Management Department New Patient Consultation Referring Physician: SELF Chief Complaint: Right third toe pain SUBJECTIVE: Dong Whitmore is a 73 year old male with a pertinent past medical history of diabetes who presents to The [facility]'s Pain Management Center for the evaluation of right third toe pain. 15-year history of right third toe pain. He notes that over this time the pain has become increasingly severe has caused him significant discomfort and suffering. He has been to many specialists in the [facility] area-over the course of the past 15 [...] depression 10-14 Mo (more content not included)... [facility] 02-29-2024 History of Present illness Narrative Images from the original note were not included. [facility] Pain Management Department New Patient Consultation Referring Physician: SELF Chief Complaint: Right third toe pain SUBJECTIVE: Dong Whitmore is a 73 year old male with a pertinent past medical history of diabetes who presents to [facility] Management [facility] for the evaluation of right third toe pain. 15-year history of right third toe pain. He notes that over this time the pain has become increasingly severe has caused him significant discomfort and suffering. He has been to many specialists in the [facility]-over the course of the past 15 [...] history of diabetes who presents to [facility] Management Center for the evaluation of right third toe pain. He describes a 15-year history of right third toe pain. He notes that over this time the pain has become increasingly severe has caused him significant discomfort and suffering. He has been to many specialists in the [facility] area-over the course of the past 15 [...] done ~two months ago) and send to [facility] Pain Management Center - ID [...] Araujo MD, PhD documented in this encounter [facility] 02-06-2024 Telephone encounter Note Called and spoke to patient. Gave him this message from Dr. Singletary: I'd suggest seeking an appointment with the following doctors who perform DRG implantation: Dr. Carlisle, Dr. Araujo, Dr. Dan, Dr. Cortés Patient voiced understanding. [facility] 02-06-2024 Miscellaneous Notes Called and [...] giving him the number to schedule at [facility] to discuss DRG? I'd suggest seeking an appointment with the following doctors who perform DRG implantation: Dr. Carlisle, Dr. Araujo, Dr. Dan, Dr. Moo Mcwilliams and Dr. Kamara may do DRG - I'm not sure. Thanks Lela! ----- Message ----- From: Livia Lester PA-C Sent: 02/05/2024 2:07 PM EDT To: Francoise Singletary MD No one on this side of [facility] that I know of does DRG so, [...] I know who do DRG are at [facility]. How do we refer him there? From what I remember, Truman Melendez, Ni, and Moo do DRG - do you know of anyone else? documented in this encounter [facility] 02-06-2024 Telephone encounter Note ----- Message from Francoise Singletary MD sent at 02/05/2024 3:12 PM EDT ----- Do you mind calling him and giving him the number to schedule at [facility] to discuss DRG? I'd suggest seeking an appointment with the following doctors who perform DRG implantation: Dr. Carlisle, Dr. Araujo, Dr. Dan, Dr. Moo Mcwilliams and Dr. Kamara may do DRG - I'm not sure. Thanks Lela! ----- Message ----- From: Livia Lester PA-C Sent: 02/05/2024 2:07 PM EDT To: Francoise Singletary MD No one on this side of [facility] that I know of does DRG so, [...] - do you know of anyone else? [facility] 02-05-2024 Instructions Francoise Singletary MD - 02/05/2024 1:01 PM EDT Thank you for taking the time to come and see me today! Please schedule an appointment for: [facility] Consult Please follow up with [facility] Neurology and Podiatry Please send all of your Podiatry, Neurology, and Pain Management records to us I will refer you to a provider who performs DRG to discuss this Please come back to see me as needed documented in this encounter [facility] 02-05-2024 History of Present illness Narrative Images from the original note were not included. [facility] Pain Management Department Consultation Date: [...] The patient has seen other pain providers. [facility] Neurology OV 02/01/22 Assessment and Plan [...] has been to many specialists in the [facility] area-over the course of the past 15 [...] I noted before, he appears today while [facility] was down, and I not [...] will refer him to a doctor at [facility] for consideration of DRG and to discuss the risks, benefits, alternatives. Diagnostics/Referrals: -Chronic Pain Recovery Program referral Referral to [facility] podiatry, neurology for second opinions [...] Marital Status: Unknown Medical Decision Making The [facility] EMR was reviewed during the visit [...] the shared EMR documented in this encounter [facility] 02-05-2024 Note HNO ID: [id number] Author: FRANCOISE SINGLETARY MD Service: ? Author Type: Physician Type: Progress Notes Filed: 02/05/2024 15:14 Note Text: [facility] Pain Management Department Consultation Date: [...] The patient has seen other pain providers. [facility] Neurology OV 02/01/22 Assessment and Plan [...] has been to many specialists in the [place] area-over (more content not included)... [facility] 01-01-2024 Note [id number] [facility] 09-11-2023 Evaluation note Encounter Date Diagnosis Assessment [...] 6.9% 2. Blood glucose levels according to [email or web address] 3 cgm download 08/29/23-09/11/23 : Avg glucose [...] Current use of insulin (ICD-10 - Z79.4) [employer] Other 11-16-2023 Evaluation note* Encounter Date Diagnosis Assessment Notes Treatment Notes Treatment Clinical Notes Aug, Cellulitis of right lower extremity (ICD-10 - L03.115) I did thoroughly review all the studies from [place]. I do not have any images to [...] include weight loss exercise and compression therapy. [employer] Other 09-01-2023 Evaluation note* Encounter Date Diagnosis [...] He was given a no cut [employer] to try and a brochure to buy them online. We discussed the Novolog pen and that he is to use it if his BG before a meal is greater than 150. He was able to dial the pen and knows how to put the pen needle on and deliver the dose. 30 minutes were spent educating the patient by Kamlesh Sparrow RN, [facility]. [employer] Other 05-30-2023 Evaluation note* Encounter Date Diagnosis [...] February, Metabolic syndrome X (ICD-10 - E88.81) [employer] Other 05-09-2023 Evaluation note* Encounter Date Diagnosis [...] last visit, continue with weight loss efforts [employer] Other 04-14-2023 Evaluation note* Encounter Date Diagnosis [...] the following goals: Add flavors to vegetables [employer] Other 03-30-2023 Evaluation note* Encounter Date Diagnosis [...] Dec, Metabolic syndrome X (ICD-10 - E88.81) [employer] Other 03-23-2023 NoteCARDIAC STRESS TEST Requesting Physician: [...] interpreted and reported nuclear myocardial perfusion imaging.[id number]* Encounter Date Diagnosis Assessment Notes [...] following goals: 1) Increase vegetables at dinner [employer] Other 02-14-2023 Evaluation note* Encounter Date Diagnosis [...] him and his by Kamlesh Sparrow RN, [facility]. Reviewed cgm download 11/08/22-11/20/22: Avg glucose 171. >250-1%, >180-30%, 70-180-69%, <70-0%, <540%. CV 15..2%. 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 6. Prescriptions: Acarbose sent to [facility]. Sample baylee 2 cgm given [...] Baylee 2 sensor and an office owned, [employer] [place]. His phone was not compatible with Baylee 2 or 3, or Dex[employer] G6. He previously wore the Baylee 14 day system and did not need training on applying the device. I did train him on the use of the reader. He was vgiven samples of [employer] and Skin Tac to help keep the device in place. 45 minutes were spent educating the patient by Kamlesh Sparrow RN, [facility]. [employer] Other 01-10-2023 Evaluation note* Encounter Date Diagnosis [...] program2) Try roasted cronin peppers (recipe provided) [employer] Other [id number] NotePROCEDURE: XR FOOT RT MIN 3 VIEWS [...] Electronically authenticated by: BRITTNY MORALES Date: 2022-08-19 06:17[facility]11-02-2022 Evaluation note* Encounter Date Diagnosis Assessment [...] nuts or cheese + crackers -Only likes hungarian cheese,-Recommended 15g or less for snacks; so [...] likes those-Increase vegetable intake-Vegetables: corn, peas, carrots [employer] Other 10-19-2022 Evaluation note* Encounter Date Diagnosis [...] referral to Dr. Kelley for weight management [employer] Other 08-31-2022 Evaluation note* Encounter Date Diagnosis [...] and his would cook it for him [employer] Other 07-14-2022 Evaluation note* Encounter Date Diagnosis [...] improved glycemia. Pt would likek referral to clinical support nurse. Note pt has intolerance to glp1 class [...] of glucose/bp control to prevent further nephropathy [employer] Other 01-13-2022 Evaluation note* Encounter Date Diagnosis [...] medication issues. 6. Prescriptions: Pioglitazone sent to [facility]. Oct, Hyperlipidemia, unspecified hyperlipidemia type (ICD-10 - [...] brochure given today. Recommend call if interested. [employer] Other 10-13-2021 Evaluation note* Encounter Date Diagnosis Assessment Notes Treatment Notes Treatment Clinical Notes Jul, SANTANA (nonalcoholic steatohepatitis) (ICD-10 - K75.81) Jul, Other [facility] INDICATED ABOVE F/U HERE PRN [employer] Other Evaluation noteNo InformationNort [employer] Other Evaluation noteNo assessment information available [facility] Work Phone: Evaluation note* Diagnosis Chronic toe pain, right foot- Primary 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, not stated as uncontrolled Class 3 severe obesity with serious comorbidity and body mass index (BMI) of 40.0 to 44.9 in adult, unspecified obesity type (HCC) documented in this encounter [facility] note* Diagnosis Chronic toe pain, right [...] right lower limb documented in this encounter [facility] note* Diagnosis Adjustment disorder with depressed mood- Primary Complex regional pain syndrome type II of right lower limb Chronic toe pain, right foot Class 3 severe obesity with serious comorbidity and body mass index (BMI) of 40.0 to 44.9 in adult, unspecified obesity type (HCC) documented in this encounter [facility] note* Diagnosis Adjustment disorder with depressed mood- Primary Complex regional pain syndrome type II of right lower limb Chronic toe pain, right foot documented in this encounter [facility] note* Diagnosis Adjustment disorder with depressed mood- Primary Complex regional pain syndrome type II of right lower limb Chronic toe pain, right foot documented in this encounter [facility] general Narrative - Reported* Type Description [...] first metatarsal 11-16-18 Hospitalization History see above [employer] Other History general Narrative - Reported* Type [...] Foot Surgery 10/27/2021 Hospitalization History see above [employer] Other History general Narrative - Reported* Type [...] Foot Surgery 10/27/2021 Hospitalization History see above [employer] Other Summary Purpose Family History No Family [...] (HCC) Procedures PROVIDER ORDERED FOLLOW UP OFFICE/OUTPATIENT [facility] MDM 60 MINUTES Chiqui Robles MD [address] [place] [address] Referral ID Status Reason Start Date Expiration Date Visits Requested Visits Authorized [id number] Authorized PCP Requested Referral 06/25/2024 04/24/2025 1 1 Specialty Diagnoses / Procedures Referred By Segundo joshua Referred To Contact Infectious Diseases Diagnoses Dermatitis of lower extremity Procedures CONSULT TO INFECTIOUS DISEASES OFFICE/OUTPATIENT [facility] 60 MINUTES Herberth Araujo MD, PhD [address] [place] [address] Referral ID Status Reason Start Date Expiration Date Visits Requested Visits Authorized [id number] Authorized PCP Requested Referral 02/29/2024 02/28/2025 1 1 Specialty Diagnoses / Procedures Referred By Contac t Referred To Contact Podiatry Diagnoses Chronic toe pain, right foot Painful diabetic neuropathy (HCC) Procedures CONSULT TO PODIATRY OFFICE/OUTPATIENT [facility] 60 MINUTES Francoise Singletary MD [address] [phone] Referral ID Status Reason Start Date Expiration Date Visits Requested Visits Authorized [id number] Authorized PCP Requested Referral 02/05/2024 02/04/2025 1 1 Specialty Diagnoses / Procedures Referred By Contac t Referred To Contact Neurology Diagnoses Chronic toe pain, right foot Painful diabetic neuropathy (HCC) Procedures CONSULT TO NEUROLOGY OFFICE/OUTPATIENT [facility] 60 MINUTES Francoise Singletary MD [address] [phone] Referral ID Status Reason Start Date Expiration Date Visits Requested Visits Authorized [id number] Authorized PCP Requested Referral 02/05/2024 02/04/2025 1 1 Specialty Diagnoses / Procedures Referred By Contac t Referred To [facility] Diagnoses Chronic toe pain, right foot Painful diabetic neuropathy (HCC) Procedures CONSULT TO [place] [facility] PAIN RECOVERY (CHRONIC PAIN) OFFICE/OUTPATIENT [facility] 60 MINUTES Francoise Singletary MD [address] [place] [address] Referral ID Status Reason Start Date Expiration Date Visits Requested Visits Authorized [id number] Pending Review PCP Requested Referral 02/05/2024 02/04/2025 1 1 Additional Source Comments REASON FOR VISIT (unrecogniz ed section and content) Reason Comments Consult Rt foot Reason Comments Established Patient Medication Update Reason Comments Nurse Triage Call Reason Comments New Patient Specialty Diagnoses / Procedures Referred By Contac t Referred To [facility] Diagnoses Complex regional pain syndrome type II of right lower limb Chronic toe pain, right foot Class 3 severe obesity with serious comorbidity and body mass index (BMI) of 40.0 to 44.9 in adult, unspecified obesity type (HCC) Procedures CONSULT TO [facility] (CHRONIC PAIN) OFFICE/OUTPATIENT [facility] 60 MINUTES Herberth Araujo MD, PhD [address] [place] [address] Referral ID Status Reason Start Date Expiration Date Visits Requested Visits Authorized [id number] Pending Review PCP Requested Referral 04/03/2024 04/03/2025 [...] content) DATE CREATED AUTHOR 02/20/2023 [facility] DATE CREATED AUTHOR AUTHOR'S ORGANIZ ATION 11/22/2023 [facility] DATE CREATED AUTHOR AUTHOR'S ORGANIZ ATION 12/15/2023 [facility] DATE CREATED AUTHOR AUTHOR'S ORGANIZ ATION 03/09/2024 [facility] DATE CREATED AUTHOR AUTHOR'S ORGANIZ ATION 03/16/2024 [facility] DATE CREATED AUTHOR AUTHOR'S ORGANIZ ATION 05/09/2024 [facility] DATE CREATED AUTHOR AUTHOR'S ORGANIZ ATION 06/02/2024 Byrd Luiz [facility] DATE CREATED AUTHOR AUTHOR'S ORGANIZ ATION 06/21/2024 [facility] [place] [facility] DATE CREATED AUTHOR AUTHOR'S ORGANIZ ATION 06/28/2024 [facility] DATE CREATED AUTHOR AUTHOR'S ORGANIZ ATION 07/05/2024 [facility] dical Specialists EPIC Care Teams (unrecognized [...] 24, 2023 End: August 24, 2023 Eligio Soin MD Attending Provider Active Start: August 24, [...] September 11, 2023 End: September 11, 2023 Water Server Relationship Specialty Start Date End Date Miguelangel Mac MD [address] [place] [address] 1 [place] [address] Referring Pain Management 01/29/24 Water Server Relationship Specialty Start Date End Date Miguelangel Mac MD [address] [place] [address] 1 [place] [address] Referring Pain Management 01/29/24 Water Server Relationship Specialty Start Date End Date Miguelangel Mac MD [address] [place] [address] 1 [place] [address] Referring Pain Management 01/29/24 Water Server Relationship Specialty Start Date End Date Miguelangel Mac MD [address] [place] [address] 1 [place] [address] Referring Pain Management 01/29/24 Water Server Relationship Specialty Start Date End Date Haider Hickman MD [address] [place] [address] PCP - General Family Medicine 03/26/24 Miguelangel Mac MD [address] [place] [address] Referring Pain Management 01/29/24 Water Server Relationship Specialty Start Date End Date Haider Hickman MD [address] [place] [address] PCP - General Family Medicine 03/26/24 Miguelangel Mac MD [address] [place] [address] Referring Pain Management 01/29/24 Water Server Relationship Specialty Start Date End Date Haider Hickman MD [address] [place] [address] PCP - General Family Medicine 03/26/24 Miguelangel Mac MD [address] [place] [address] Referring Pain Management 01/29/24 Water Server Relationship Specialty Start Date End Date Haider Hickman MD [address] [place] [address] PCP - General Family Medicine 03/26/24 Miguelangel Mac MD [address] [place] [address] Referring Pain Management 01/29/24 Water Server Relationship Specialty Start Date End Date Haider Hickman MD [address] [place] [address] PCP - General Family Medicine 03/26/24 Miguelangel Mac MD [address] [place] [address] 1 [address] [place] [id number] Referring Pain Management 01/29/24 Goals (unrecognized section [...] or prosecute any alcohol or drug abuse patient.[facility] the event this information is protected by the Federal Confidentiality of Alcohol and Drug Abuse Patient Records regulations: The Federal rules restrict any use of the information to criminally investigate or prosecute any alcohol or drug abuse patient.[facility] Center[facility] the event this information is protected by the Federal Confidentiality of Alcohol and Drug Abuse Patient Records regulations: The Federal rules restrict any use of the information to criminally investigate or prosecute any alcohol or drug abuse patient.[facility] Center[facility] the event this information is protected by the Federal Confidentiality of Alcohol and Drug Abuse Patient Records regulations: The Federal rules restrict any use of the information to criminally investigate or prosecute any alcohol or drug abuse patient.[facility] Center[facility] the event this information is protected by the Federal Confidentiality of Alcohol and Drug Abuse Patient Records regulations: The Federal rules restrict any use of the information to criminally investigate or prosecute any alcohol or drug abuse patient.[facility] Center[facility] the event this information is protected by the Federal Confidentiality of Alcohol and Drug Abuse Patient Records regulations: The Federal rules restrict any use of the information to criminally investigate or prosecute any alcohol or drug abuse patient.[facility] Center[facility] the event this information is protected by the Federal Confidentiality of Alcohol and Drug Abuse Patient Records regulations: The Federal rules restrict any use of the information to criminally investigate or prosecute any alcohol or drug abuse patient.[facility] Center[facility] the event this information is protected by the Federal Confidentiality of Alcohol and Drug Abuse Patient Records regulations: The Federal rules restrict any use of the information to criminally investigate or prosecute any alcohol or drug abuse patient.[facility] Center[facility] the event this information is protected by the Federal Confidentiality of Alcohol and Drug Abuse Patient Records regulations: The Federal rules restrict any use of the information to criminally investigate or prosecute any alcohol or drug abuse patient.[facility] FOR RECORDS PERTAINING TO PATIENTS [...] BE BASED ON THE PRIMARY CLINICAL RECORDS. [facility] [employer] [facility]. provides no warranty or guarantee of the accuracy or completeness of information in this document.
== END 2024-07-15 12:20 | disposition home or self-care (01) ==
LOC: MRI 12:19
PROVIDERS: PCP Family Medicine; Visit Provider Nurse Practitioner Family
DX: M24.812 Other specific joint derangements of left shoulder, not elsewhere classified (principal); M75.122 Complete rotator cuff tear or rupture of left shoulder, not specified as traumatic
CPT/HCPCS: 73221

== ENCOUNTER 2024-07-19 11:16 | Outpatient (OUT) | payer MEDICARE, OTHER, SELFPAY ==
--- OUTSIDE RECORDS SUMMARY | 2024-07-19 11:22 | XMS_ITS | CCD ---
Author Organization [facility] Care Team Providers Care Soapstoner Name Role Phone Morgan Kunz Unavailable Aldo [...] SCARLET [place] Consulting Unavailable JOHNSON ., DR SCRALET [place] Primary Care Unavailable JOHNSON ., DR SCARLET [place] Attending Unavailable JOHNSON ., DR SCARLET [place] Admitting Unavailable DR ARACELI BERMUDEZ Consulting Unavailable JOHNSON ., DR SCARLET [place] [...] Care Provider MD Eligio Soni Attending Provider [phone] MD Scarlet oJhnson Primary Care Provider MD Daniel Everett Attending Provider Eligio Soni Admitting UnavailEligio Patel Attending UnavailScarlet Valerio Primary Care Unavailable Daniel Everett Admitting Unavailable Daniel Everett Attending Unavailable Scarlet Johnson Primary Care Unavailable Terry Kelley Attending Unavailable Scarlet Johnson Primary Care Unavailable Terry Kelley Admitting Unavailable Bubba SCHUSTER, Andrius Louis Attending Unavailable Bubba SCHUSTER, Andrius Vlluvia Attending Unavailable Bubba SCHUSTER, Andrius Vytautmariann Attending Unavailable Bubba SCHUSTER, Andrius Vytautas Attending Unavailable Bubba SCHUSTER, Andrius Vytautas Attending Unavailable Bubba SCHUSTER, Andrius Vytautmariann Attending Unavailable Bubba SCHUSTER, Andrius Unavailable [phone] Haider Hickman. Attending Unavailable Haider Hickman Admitting Unavailable Haider Hickman MD Primary Care Provider HERBERTH ARAUJO Referring Unavailable CHIQUI ROBLES Attending Unavailable HAIDER HICKMAN Primary Care Unavailable CHIQUI ROBLES Referring Unavailable MORGAN TRINIDAD Attending Unavailable HAIDER HICKMAN Primary Care Unavailable FRANCOISE SINGLETARY Attending Unavailable MEKHAIL, HERBERTH A Attending Unavailable MEKHAIL, HERBERTH A Attending Unavailable MEKHAIL, EHRBERTH A Admitting Unavailable MARY APARICIO Attending Unavailable BROWN, ANDREA A Attending Unavailable BROWN, ANDREA A Attending Unavailable APLING, MIHIR B Attending Unavailable APLING, MIHIR B Referring Unavailable MACY MCPHERSON Attending Unavailable BROWN, ANDREA A Attending Unavailable BROWN, ANDREA A Attending Unavailable APLING, MIHIR B Attending Unavailable APLING, MIHIR B Attending Unavailable BROWN, ANDREA A Attending Unavailable DOLCE, HYACINTH Stoner Attending Unavailable DOLCE, HYACINTH Stoner Referring Unavailable DOLCE, KAJAL R Attending Unavailable APLING, MIHIR B Attending Unavailable DOLCE, HYACINTH Stoner Attending Unavailable Haider Hickman Attending Unavailable Ross, Haider Bee Attending Unavailable Haider Hickman Attending Unavailable Haider Hickman Attending Unavailable Haider Hickman Attending Unavailable COOK, Araceli P Referring Unavailable COOK, Araceli P Admitting Unavailable COOK, Araceli P Attending Unavailable COOK, Araceli P Referring Unavailable COOK, Araceli P Admitting Unavailable COOK, Araceli P Attending Unavailable Haider Hickman Admitting Unavailable Haider Hickman Attending Unavailable Haider Hickman Admitting Unavailable RossHaider Attending Unavailable COOK, Araceli P Referring Unavailable COOK, Araceli P Admitting Unavailable COOK, Araceli P Attending Unavailable COOK, Araceli P Attending Unavailable COOK, Araecli P Attending Unavailable COOK, Araceli P Attending Unavailable Haider Hickman Attending Unavailable Haider Hickman Attending Unavailable DAVID ACOSTA Attending Unavailable Dolce, Akjal R Attending Unavailable Dolce, Kajal R Attending Unavailable REFERRAL, SELF Referring Unavailable Dolce, Kajal R Attending Unavailable COOK, Araceli P Attending Unavailable Haider Hickman Referring Unavailable Haider Hickman Attending Unavailable Haider Hickman Attending Unavailable Haider Hickman Attending Unavailable Allergies Allergy Classification Reported Allergen(s) Allergy Type Date of Onset Reaction(s) Facility (20 sources) Cefuroxime; Translations: [CEFUROXIME] Drug Allergy 06-09-20 Unknown [facility] (20 sources) celecoxib; Translations: [CELECOXIB] Drug Allergy 06-09-20 Unknown [facility] (20 sources) Diflunisal; Translations: [DIFLUNISAL] Drug Allergy 06-09-20 21 Unknown [facility] (20 sources) dulaglutide Drug Allergy 09-11-20 Unknown, g/i [facility] (20 sources) Ibuprofen Drug Allergy Unknown [facility] Other (20 sources) liraglutide; Translations: [LIRAGLUTIDE] Drug Allergy 11-25-19 stomach upset [facility] (20 sources) metFORMIN; Translations: [METFORMIN] Drug Allergy 06-09-20 stomach upset [facility] (20 sources) Naproxen; Translations: [NAPROXEN] Drug Allergy 06-09-20 Unknown [facility] (20 sources) Sulindac; Translations: [Clinoril] Drug Allergy 07-10-20 15 Unknown [facility] Repository (1 source) Cefuroxime Drug Allergy 07-13-20 16 [facility] Repository (3 sources) celecoxib; Translations: [CeleBREX] Drug Allergy 07-10-20 15 [facility] Repository (3 sources) liraglutide; Translations: [Victoza] Drug Allergy [facility] Repository (1 source) metFORMIN Drug Allergy 06-15-20 17 [facility] Repository (3 sources) Naproxen; Translations: [Naprosyn] Drug Allergy 07-10-20 15 [facility] Repository (3 sources) NSAIDs; Translations: [NSAIDS (NON-STEROIDAL ANTI-INFLAMMATORY DRUG)] Drug allergy (disorder) 07-10-20 15 [facility] Repository (3 sources) Povidone-Iodine; Translations: [Dolobid] Drug Allergy 07-10-20 15 [facility] Repository (4 sources) Cephalosporins (Antibiotic); Translations: [Cephalosporins] Propensity to adverse reactions 05-29-20 18 Unknown Reaction [facility] (2 sources) Ibuprofen; Translations: [ibuprofen] Drug Allergy 09-11-20 [facility] (3 sources) Sulindac; Translations: [sulindac] Drug Allergy 06-09-20 [facility] (1 source) Cefuroxime Drug Allergy 09-11-20 [facility] Repository (1 source) celecoxib Drug Allergy 09-11-20 [facility] Repository (1 source) Diflunisal Drug Allergy 09-11-20 [facility] Repository (1 source) dulaglutide Drug Allergy 09-11-20 [facility] Repository (1 source) liraglutide Drug Allergy 09-11-20 [facility] Repository (1 source) metFORMIN Drug Allergy 09-11-20 [facility] Repository (1 source) Naproxen Drug Allergy 09-11-20 [facility] Repository (9 sources) Non-steroidal anti-inflammatory agent Drug Intolerance 02-05-20 GI Upset [facility] (1 source) rofecoxib; Translations: [ROFECOXIB] Drug Allergy 06-09-20 [facility] Repository (2 sources) Cefuroxime; Translations: [Cefuroxime Axetil] Drug Allergy [facility] Repository (2 sources) dulaglutide; Translations: [Trulicity] Drug Allergy [facility] Repository (2 sources) Niacin; Translations: [niacin] Drug Allergy [facility] Repository (2 sources) NSAIDs; Translations: [NSAIDs] Propensity to adverse reactions (disorder) [facility] Repository (2 sources) rofecoxib; Translations: [Vioxx] Drug Allergy [facility] Repository Medications Current Medications Medication Drug [...] tablet Orally Once a day Active Losartan [facility] Active memantine hydrochloride 10 mg oral tablet (5 sources) P-skfwad-U-aspartate Receptor Antagonist Start: 05-31-2024 take 1 tablet [...] 28, 2018 11:00pm [facility] Metoprolol Tartrate 100 MG 1 tablet with food Orally Daily Active take 1 tablet by jatin every twenty-four hours Metoprolol Tartrate 50 MG 1 Tablet Orally Daily Active Nitro Sublingual 0.4 (20 sources) Nitro Sublingual 0.4 Sublingual As Directed Active nitroglycerin 0.4 mg sublingual tablet (9 sources) Nitrate Vasodilator Start: nitroglycerin sublingual (NITROQUICK) 0.4 mg SL tablet 04/19/2022 Active Saxis 1-Ffr-Ovd-Fish Oil (Fish Oil) 1,000 mg (120 mg-180 mg) Capsule (2 sources) Start: 018 Saxis 9-Myz-Psf-Fish Oil (Fish Oil) 1,000 mg (120 mg-180 [...] afternoon. 12/03/2023 Active take 1 tablet by [facility] every twenty-four hours Pioglitazone HCl 30 MG 1 tablet Orally Once a day Active take 2 tablets by mo [facility] every twenty-four hours Pioglitazone HCl 15 [...] Orally once a day Active FreeStyle Baylee Berry - (7 sources) FreeStyle Baylee Berry - use with baylee sensor SQ daily [...] Coronary arteriosclerosis; Translations: [Atherosclerotic heart disease of [place] coronary artery without angina pectoris] Onset: 12-30-2022 [...] deficiency, unspecified] Chronic Other aftercare (1 source) half-way (current) use of aspirin; Translations: [JAIL CURRENT USE OF ASPIRIN] Onset: 02-20-2023 Episodic Other aftercare (1 source) Other senior care (current) drug therapy; Translations: [OTH JAIL CURRENT DRUG THERAPY] Onset: 02-20-2023 Episodic Other aftercare (6 sources) Long-term current use of insulin; Translations: [half-way (current) use of insulin] Episodic Other aftercare (1 source) half-way (current) use of insulin Episodic Other connective [...] Test Name Value Interpretation Reference Range Facility Ambulatory Visit Summaryon 1 Ambulatory Visit Summary Ambulatory Visit Summary DONG WHITMORE :1950 Visit Date:07/17/2024 Ambulatory Visit Instructions Your Diagnosis Kidney stone BPH with obstruction/lower urinary tract symptoms Complex renal cyst Impotence Tests Performed US Renal -- Results Pending -- Please visit your patient portal for your results or contact your primary care physician. Your Care Team Attending Physician - LATRICIA SCHUSTER, Araceli Treadwell Primary Care Physician - Kristofer SCHUSTER, Haider Bee This Is Your Medications List sodium bicarbonate (sodium bicarbonate 650 mg Tab) Contact prescribing physician if questions or concerns Misc Prescription (Eric Prather, 5 years.) acarbose (acarbose 25 mg oral tablet) aspirin (aspirin 81 mg Oral EC Tab) buPROPion (buPROPion 300 mg/24 hours ER Tab) calcium carbonate (calcium (as carbonate) 600 mg oral tablet) insulin aspart (NovoLog) losartan (losartan 50 mg Tab) memantine (memantine 5 mg Tab) metoprolol (metoprolol succinate 50 mg ER Tab) nitroglycerin (nitroglycerin 0.4 mg sublingual Tab) omega-3 polyunsaturated fatty acids (Fish Oil 1200 mg oral capsule) pioglitazone (pioglitazone 30 mg Tab) potassium chloride (Potassium Chloride (Hgd-Jlgp-Grc M20) 20 mEq oral tablet, extended release) [...] conduit, Stimulator. Discharge Vitals Heart Rate (Peripheral) 56 Blood Pressure 134/73 Height 169 cm Height 67 in Weight 122 kg Weight 268.4 lb BMI 42.72 What to do next Scheduled Follow-Up Appointments Monday 3:30 PM EST With: Haider Hickman MD Where: [address] [address]- Monday 10:30 AM EST With: Araceli BERMUDEZ MD Where: [facility] [address] [place] [address] 2024 8:00 AM EDT With: Where: [address] [id number]- Monday 9:15 AM EDT With: Araceli BERMUDEZ MD Where: [facility] [address], [address] [place] [address]- You Need to Schedule the Following Appointments Follow Up with Araceli BERMUDEZ MD, URL When: Where: [address] [address]- Medications What How Much When Why Instructions Unchanged sodium bicarbonate (sodium bicarbonate 650 mg Tab) 2 Tablets By Mouth 3 times a day Duration: 90 Days Pickup at [facility]/pharmacy #[id number] Unchanged acarbose (acarbose 25 mg oral tablet) 2 Tablets By Mouth 3 times a day Contact prescribing physician if questions or concerns Unchanged aspirin (aspirin 81 mg Oral EC Tab) 1 Tablets By Mouth Every day Contact prescribing physician if questions or concerns Unchanged buPROPion (buPROPion 300 mg/ 24 hours ER Tab) See instructions TAKE 1 TABLET BY MOUTH EVERY DAY Contact prescribing physician if questions or concerns Unchanged calcium carbonate (calcium (as carbonate) 600 mg oral tablet) 1 Tablets By Mouth Every day Contact prescribing physician if questions or concerns Unchanged insulin aspart (NovoLog) See instructions SubCutaneous TIDAC Contact prescribing physician if questions or concerns Unchanged losartan (losartan 50 mg Tab) See instructions 1.5 tab(s) Oral Daily Contact prescribing physician if questions or concerns Unchanged memantine (memantine 5 mg Tab) 1 Tablets By Mouth 2 times a day Contact prescribing physician if questions or concerns Unchanged metoprolol (metoprolol succinate 50 mg ER Tab) 1 Tablets By Mouth 2 times a day Contact prescribing physician if questions or concerns Unchanged Misc Prescription (Handicajosé miguel Prather, 5 years.) Se (more content not included)... Normal [facility] Reminderson 07-17-2024 Reminders Reminders From: Roya Álvarez To: PREM - Bia Bermudez; Sent: 07/17/2024 10:05:54 EDT Show up: 05/17/2025 10:05:00 EDT Subject: Renal US Due Date/Time: 05/17/2025 10:05:00 EDT Reminder Message Renal US to be done prior to 1 year appointment. [facility]. Order created today. Normal [facility] Urology Office/Clinic Noteon 07-17-2024 Urology Office/Clinic Note Urology Office/Clinic Note Chief Complaint follow up [facility] Staff 73 yo male here for f/up with renal US. Previous dx: kidney stone, complex renal cyst, BPH w/ LUTS, impotence. Taking Sodium Bicarb 650mg tid. Renal US 10/31/23 [facility]. KUB 11/10/23 [facility] - no stones id'd. S/p cysto, R RPG, R ESWL 01/04/24. Renal US 01/24/24 [facility] - neg limited renal ultrasound. Renal US 07/04/24 [facility] - 1.3 cm cyst involving the upper pole of the L kidney. Dysuria: no Incomplete bladder emptying: no Hematuria: no Frequency: no Urgency: no Nocturia:1x Stream: good stream Leaking: no Post void dripping: no Wearing pads/ Depends: no Urge incontinence: no Stress incontinence: no Incontinence without Sensory Awareness: no Abdominal pain: no Flank pain: no Sexual complaints: no History of Present Illness Tests reviewed: reviewed UA, PSA, renal US, KUB. I have reviewed the previous health record information and history for this patient from Dr. Bermudez. I have reviewed and verified the staff HPI to be accurate for this encounter. There have been no associated fever, chills, flank pain, or blood in the urine. Denies any urinary infections since last encounter. Review of Systems PHQ Score Initial Depression Screen Score: 0 SCORE ROS - Provider Constitutional: denies weight loss, denies hot flashes. Eyes: denies eye problems. Gastrointestinal: denies nausea, denies vomiting. Cardiovascular: denies chest pain or angina. Integumentary: no dryness Musculoskeletal: denies musculoskeletal symptoms. ENMT: denies otolaryngeal symptoms. Respiratory: no shortness of breath. Heme/Lymph: denies easy bleeding tendency, denies easy bruising tendency. Psychiatric: no confusion, no anxiety. Genitourinary: See HPI. Physical Exam Vitals & Measurements HR: 56(Peripheral) BP: 134/73 HT: 67 in HT: 169 cm WT: 122 kg WT: 268.4 lb BMI: 42.72 General Appearance: alert, no distress, well nourished, well developed male. Assessment/Plan Portions of this record may have been created with voice recognition artificial intelligence software, specifically YODIL, [employer] and or [email or web address]. Substitutions may have occurred due to the inherent limitations of voice recognition and artificial intelligence software. 1. Kidney stone (N20.0: Calculus of kidney) Renal US 08/10/22 shows 1 cm area of hypoechogenicity in the lateral cortex, nonspecific. 4 mm echogenic focus in the lingula, nonobstructing stone. Renal US 10/31/23 [facility] - 8 mm nonobstructing calculus involving the upper pole of the R kidney. 5 mm nonobstructing calculus involving the L kidney. No hydro bilaterally. KUB 11/10/23 [facility] - no stones id'd. S/p cysto, R RPG, R ESWL 01/04/24. Renal US 01/24/24 [facility] - neg limited renal ultrasound. Renal US 07/04/24 [facility] - 1.3 cm cyst involving the upper pole of the L kidney. Taking Sodium Bicarb 650mg tid. pH 7.0. Refill provided. -Will cont to monitor -Cont Sodium Bicarb 650mg tid -Follow up in 1 year w/ renal US 2. BPH with obstruction/lower urinary tract symptoms (N40.1: Benign prostatic hyperplasia with lower urinary tract symptoms) PSA: 05/03/19 - 1.18 05/21/20 - 2.10 04/23/21 - 1.[address] Johnson was ordering PSA. None recently drawn. Pt states he asks his primary care to order one. S/p TURP 11/15/2007. Cysto 01/04/24 ~prostate is wide open status post prostate resection. IPSS 6 (7) Not taking any BPH meds. No urinary concerns. -PSA now @ [facility] 3. Complex renal cyst (N28.1: Cyst of kidney, acquired) Renal US 08/10/22 shows 1 cm hypoechogenic lesion of the left renal cortex with increased acoustic through transmission suggests a complex cyst. Renal US 10/31/23 [facility] - 10 x 15 mm cyst involving the upper pole of the R kidney. Renal US 07/04/24 [facility] - 1.3 cm cyst involving the upper pole of the L kidney. -Renal US in 12 mos 4. Impotence (N52.9: Male erectile dysfunction, unspecified) Unchanged. Overall the patient is happy to hear that the most recent renal ultrasound demonstrates no evidence of renal calculi. I did discuss that this is not a guarantee that he could have small stones which are not easily seen on ultrasound. Previous KUB was actually negative. He agrees with a 1 year follow-up with repeat ultrasound. He is happy with his urinary flow scoring low and his IPSS score sheet. No recent PSA level so we ordered 1. He will call for that result and then we will have a discussion with his new PCP about getting this on a yearly basis as well. Stable cyst again seen on ultrasound as well. Viewed UA, ordered repeat renal ultrasound, ordered PSA. Follow-up With When Contact Information LATRICIA SCHUSTER, Araceli P, URL [address] [place] [phone]- Additional Instructions: 1 year w/ renal US Patient Education Dietary Guidelines to Help Prevent Kidney Stones I, Roya Álvarez, personally scribed for Dr. Bermudez on 07/17/2024 10:05:06 (more content not included)... Normal [facility] Comment on above: Result Comment: Elec tronically Signed By: Araceli BERMUDEZ MD\.br\Date and Time Signed: 07/17/24 10:09 EDT\.br\Electronically Co-Signed By: Roya Álvarez\.br\Date and Time Co-Signed: 07/17/24 10:05 EDT Office Visiton 06-26-2024 Follow-up visit [id number] Dong Whitmore 1950 M Date Provider Department Center 06/26/2024 MARY GRIFFIN [facility] Family History Problem Relation Age of Onset Coronary artery disease Other Diabetes Other Family Status - Relation Status Age at Other Level of Service:[address] [place] OFFICE/OUTPATIENT ESTABLISHED MOD MDM 30 MIN Reason for Visit and Comments: Coronary Artery Disease [187] Hypertension [611831] Normal [facility] Ambulatory Visit Summaryon 0 05-31-2024 Ambulatory Visit [...] Hickman MD This Is Your Medications List [facility] Prescription (Eric Prather, 5 years.) acarbose (acarbose [...] 30 mg Tab) potassium chloride (Potassium Chloride (Qfi-Tjoq-Ocr M20) 20 mEq oral tablet, extended release) [...] Araceli BERMUDEZ MD Where: [facility] [address], [address] [place] [address]- Monday 3:30 PM EST With: Haider Hickman MD Where: [address] [address]- Monday 10:30 AM EST With: Araceli BERMUDEZ MD Where: [facility] [address], [address] [place] [address] 2024 8:00 AM EDT With: Where: [address] [phone]- Medications What How Much When Why Instructions [...] Unchanged nitrog (more content not included)... 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 Non-smoker (Z78.9: Other specified health status) Encouraged to continue as a non-smoker Ordered: clindamycin, 300 mg = 1 cap(s), Oral, BID, X 10 day(s), # 20 cap(s), Refills(s) 0, Pharmacy: [facility]/pharmacy #[id number], 169, cm, 05/22/24 14:52:00 EDT, Height/Length [...] Oral, BID (more content not included)... Normal [facility] Comment on above: Result Comment: Elec [...] CNP Primary Care Physician - Haider Hickman MD This Is Your Medications List [facility] Prescription (Eric Prather, 5 years.) acarbose (acarbose [...] 30 mg Tab) potassium chloride (Potassium Chloride (Vpf-Dpib-Kdu M20) 20 mEq oral tablet, extended release) [...] With: Kajal Freeman DPM Where: [facility] Monday 9:15 AM EDT With: Araceli BERMUDEZ MD Where: [facility] [address], [address] [place] [address]- Monday 3:30 PM EST With: Haider Hickman MD Where: [address] [address]- Monday 10:30 AM EST With: Araceli BERMUDEZ MD Where: [facility] [address], [address] [place] [address] 2024 8:00 AM EDT With: Where: [address] [address]- Medications What How Much When Why Instructions New clindamycin (clindamycin 300 mg oral cap) 1 Capsules By Mouth 2 times a day Cellulitis of leg BMI 40.0-44.9, adult Non-smoker Class 3 severe obesity due to excess calories with body mass index (BMI) of 40.0 to 44.9 in adult Duration: 10 Days Pickup at [facility]/pharmacy #[id number] Unchanged acarbose (acarbose 25 mg oral tablet) [...] adult Nonsmoker Lumbar stenosis Peripheral edema Handicap Yamilka, 5 years. Unchanged nitroglyce (more content not included)... Normal [facility] Family Medicine Office/Clini c Noteon 05-14-2024 Family [...] Precautions for MERS/COVID-19 : N/A Debra Bermudez 05/13/2024 9:39 EDT Medicare/Medicaid Summary Systolic Blood Pressure : 138 mmHg Diastolic Blood Pressure : 70 mmHg Blood Pressure Location : Left arm Blood Pressure Position : Sitting Peripheral Pulse Rate : 65 bpm Respiratory Rate : 14 br/min SpO2 : 95 % Debra Bermudez 05/13/2024 10:35 EDT Chief Complaint : Subsequent [...] Rating Pain Score : 8 Debra Bermudez 05/13/2024 9:39 EDT Hearing and Vision Screening FT FT Whisper Test Comments : admits to hearing deficts -has had an appointment. Hearing aides expensive. Vision Screen Comments : has corrective lens. yearly checks. Has appt [facility] next week. Debra Bermudez - 05/13/2024 9:39 EDT Advance Directive FT Advance Directive : Yes Type of Advance Directive : Living will, Medical durable power of trouble tracer Organ Donation Consent : Yes Debra Bermudez - 05/13/2024 9:39 EDT Procedures / Surgeries FT [...] Last Reviewed Dt/Tm: 05/13/2024 09:44:11 EDT Location: [facility] ; Anesthesia Minutes: 0 ; Procedure [...] Huber MA x4 ; Last Reviewed Dt/Tm: 05/13/2024 09:44:11 EDT Procedure Dt/Tm: 11/05/2007 ; Anesthesia Minutes: 0 ; Procedure Name: Cystoscopy ; Procedure Minutes: 0 ; Last Reviewed Dt/Tm: 05/13/2024 09:44:11 EDT Procedure Dt/Tm: 01/10/2017 ; Anesthesia Minutes: 0 ; Procedure Name: Cystoscopic removal of ureteric stent ; Procedure Minutes: 0 ; Last Reviewed Dt/Tm: 05/13/2024 09:44:11 (more content not included)... [facility] Comment on above: Result Comment: Elec tronically Signed By: Haider Hickman MD\.br\Date and Time Signed: 05/14/24 10:23 EDT\.br\Electronically Co-Signed By: Debra Bermudez\.br\Date and Time Co-Signed: 05/13/24 13:04 EDT CNOVon 04-24-2024 CNOV Office Visit (NPRC21 ) DONG WHITMORE ([id number]) 1950 M Date Time Provider Department 04/24/24 9:00 AM CHIQUI ROBLES NPRC21 During your visit today, we recorded the following information about you: Pulse Blood pressure Weight Height 61/minute 122/89 122.5 kg 1.702 m Parish Rios MD 04/24/2024 11:26 AM Signed [facility] April 24, 2024 This is a face [...] Camacho Desimir, MD 04/24/2024 11:26 AM Signed [facility] STAFF PHYSICIAN NOTE OF PERSONAL INVOLVEMENT IN CARE IMPRESSION: Complex regional pain syndrome Adjustment Disorder Tried multiple injections, procedures, surgeries. No benefit Tried SCS and recently DRG without success. Discussed ketamine PLAN: Ketamine infusions Consider scrambler therapy Psych psychology Memantine 5mg Psychotherapy Add-on Progress Note Due to medical condition and comorbid psychological and behavioral concerns - psychotherapy was utilized during the visit. Eeoc-mr-giiy time: 89896 (16-37 mins) actual time spend in psychotherapy [...] which included preparing to see the patient, tknq-ph-fczo patient care, completing clinical documentation, performing a medically appropriate examination, and counseling and educating the patient/family/caregiv er. As noted, the patient's clinical situation is complex and serious with significant comorbidity of pain and functional limitations. This requires higher levels of time, intensity, and expense with longitudinal care and support. STAFF PHYSICIAN:: Chiqui Robles MD DATE of SERVICE: 04/24/2024 Referring Provider: HERBERTH ARAUJO [[id number]] Allergies As of Date: 04/24/2024 Noted Allergy [...] obesity type (HCC) [E66.01, Z68.41] Order(s):CONSULT TO BOYD FOR PAIN RECOVERY (CHRONIC PAIN) [4261775] Order #: [id number]: 1 PAIN RECOVERY FOLLOW UP ORDER [6213334] Order #: [id number]: 1 FUTURE PROVIDER ORDERED FOLLOW UP [3176255] Order #: [id number]: 1 FUTURE memantine (NAMENDA) 5 mg tabletTake 1 tablet by mouth once daily.Disp: 30 tabletRfl: 3 CONSULT TO KETAMINE FOR CHRONIC PAIN [9044] Order #: [id number]: 1 FUTURE Prescriptions as of 04/24/2024 - memantine (NAMENDA) 5 mg tablet Take 1 tablet by mouth once daily. - aspirin, enteric coated (ASPIRIN, ENTERIC COATED) 81 mg EC tablet Take 81 mg by mouth once daily. - fi (more content not included)... Normal [facility] BRIEF OP NOTon 04-03-2024 BRIEF OP NOT HNO ID: [id number] Author: CAPRICE DOWNING MD Service: Pain Management Author Type: Fellow Type: Brief Op Note Filed: 04/03/2024 10:35 Note Text: BRIEF OPERATIVE / PROCEDURE NOTE LOG ID: [id number] SURGERY/PROCEDURE DATE: 04/03/2024 PROCEDURE START TIME: 958 PROCEDURE END TIME: 1030 PRE-OP/PRE-PROCEDURE DIAGNOSIS: Chronic toe pain, right foot [M79.674, G89.29] Complex regional pain syndrome type II of right lower limb [G57.71] POST-OP/POST-PROCEDURE DIAGNOSIS: Chronic toe pain, right foot [M79.674, G89.29] Complex regional pain syndrome type II of right lower limb [G57.71] SURGEON(S)/PROCEDURALI ST(S) AND PACKAGE WINDER(S): Surgeon(s) and Role: * Herberth Araujo MD, PhD - Primary * Caprice Downing MD No Additional Staff SURGERY/PROCEDURE(S): Attempted Right L4 and L5 Dorsal Root Ganglion Stimulator ANESTHESIA: Anxiolysis and Local anesthetic FINDINGS: None ESTIMATED BLOOD LOSS: Minimal SPECIMENS: None COMPLICATIONS: None Caprice Downing MD Pain Medicine Fellow April 03, 2024 [facility] NURSING PROGon 04-03-2024 NURSING PROG HNO ID: [id number] Author: CAYETANO ROSALES RN Service: Nursing Author Type: Registered Nurse Type: Nursing Progress Note Filed: 04/08/2024 15:32 Note Text: Summary: Follow up phone call Follow up phone call made regarding outcome of procedure. No answer voicemail left - The patient was instructed to call [phone] with the percentage of pain relief and what activities have improved. [employer] message also sent. [facility] NURSING PROG HNO ID: [id number] Author: SURINDER LARES, DENISE Service: Nursing Author Type: Registered Nurse Type: Nursing Progress Note Filed: 04/09/2024 10:09 Note Text: Summary: Post Procedure Call Patient left voice mail. Team was unable to finish procedure due to patient was unable to stay still. No pain relief noted. Surinder Lares RN April 09, 2024 [facility] NURSING PROG HNO ID: [id number] Author: EMILEE HYDE RN Service: ? Author Type: Registered Nurse Type: Nursing Progress Note Filed: 04/03/2024 10:45 Note Text: Dr. Marian Downing (fellow) discusses reason why procedure was aborted today. Other options for pain management was discussed with patient and . Normal [facility] OPERATIVE NOon 04-03-2024 OPERATIVE NO HNO ID: [id number] Author: HERBERTH ARAUJO MD, PhD Service: Pain Management Author Type: Physician Type: Operative Report Filed: 04/03/2024 20:14 Note Text: OPERATIVE/PROCEDURE REPORT : LOG ID: [id number] SURGERY/PROCEDURE DATE: 04/03/2024 INCISION/PROCEDURE START TIME: 9:59 [...] Dorsal Root Ganglion Stimulator SURGEON(S)/PROCEDURALI ST(S) AND PACKAGE WINDER(S): Surgeon(s) and Role: * Herberth Araujo MD, [...] ELECTRONIC SIGNATURE, Herberth Araujo MD, PhD Normal [facility] HISTORY PHYSICALon HISTORY PHYSICAL HNO ID: [id number] Author: HERBERTH ARAUJO MD, PhD Service: Pain Management Author Type: Physician Type: H&P Filed: 04/03/2024 09:33 Note Text: PROCEDURE EVALUATION AND HISTORY AND PHYSICAL EXAM SUBJECTIVE: Dong Whitmore is a 73 year old man who presents to [facility] for Right L4 and L5 Dorsal Root Ganglion Stimulator Trial. This is his first (1) procedure. Focused Review of Systems: PAIN: Denies any contraindications to the procedure including coagulopathy, infection, recent cerebral/myocardial infarct, and hemodynamic instability. 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 Current Outpatient Medications [...] the patient's condition since the last [facility] visit: No Provisional Diagnosis: Chronic toe pain, right foot [M79.674, G89.29] Complex regional pain syndrome type II of right lower limb [G57.71] Planned Procedure: Right L4 and L5 Dorsal Root Ganglion Stimulator Trial Caprice Downing MD Pain Medicine Fellow April 03, 2024 Herberth Araujo MD, PhD Normal [facility] NURSING PROGon 04-01-2024 NURSING PROG HNO ID: [id number] Author: GILBERTO BAUTISTA RN Service: ? Author [...] 2 hours before the appointment. 2. A forklift driver must be present who can drive you home. If you are coming by medical transport, you must have a responsible person other than the armored transport service manager with you. 3. Do you take any [...] or cannot make the appointment by calling [phone] (Option 2). Normal [facility] Ambulatory Visit Summaryon 0 03-26-2024 Ambulatory Visit Summary DONG WHITMORE:1950 Visit Date:03/26/2024 Ambulatory Visit Instructions Your Diagnosis [...] Hickman MD This Is Your Medications List [facility] Prescription (Handicap Yamilka, 5 years.) furosemide (Lasix 40 mg Tab) potassium chloride (Potassium Chloride (Bue-Rltb-Gtc M20) 20 mEq oral tablet, extended release) [...] Appointments Monday 9:30 AM EDT With: Where: [facility] Invalid Interpretation Code [address], [address] [place] [address]- \.br \ Monday 2:15 PM EST \.br\ With: Kristofer SCHUSTER, Haider Bee\.br\ Where: [facility] Family Medicine Office/Clini c Noteon 03-26-2024 Family Medicine [...] years., Suppl (more content not included)... Normal [facility] Comment on above: Result Comment: Elec tronically Signed By: Kristofer SCHUSTER, Haider Sandhu.br\Date and Time Signed: 03/26/24 14:46 EDT Patient Educationon 24 Patient Education Nutrition BMI for Adults What [...] numbers. This can be done either in [place] ([place] or metric measurements. Note that charts and online BMI calculators are available to help you find your BMI quickly and easily without having to do these calculations yourself. To calculate your BMI in [place] ([place] measurements: 1. Measure your weight in [...] for Disease Control and Prevention: www.cdc.gov ? [place] Heart Association: www.heart.org ? National Heart, [employer], [employer]: www.nhlbi.nih.gov Summary ? Body mass index (BMI) is a number that is calculated from a person's weight and height. ? BMI may help estimate how much of a person's weight is composed of fat. BMI can help identify those who may be at higher risk for certain medical problems. ? BMI can be measured using [place]ian measurements or metric measurements. ? BMI charts are used to identify whether you are underweight, normal weight, overweight, or obese. This information is not intended to replace advice given to you by your health care provider. Make sure you discuss any questions you have with your health care provider. Document Revised: 06/17/2020 Document Reviewed: 04/24/2020 [employer] Patient Education ? 2022 [email or web address]. [facility] Sona 03-19-2024 JACEY Telephone (HOLLIE) DONG WHITMORE ([id number]) 1950 M Date Time Provider Department 03/19/24 HERBERTH ARAUJO During your visit today, we recorded the following information about you: Emilee So RN 03/19/2024 1:32 PM Signed Spoke with patient at request of computer processing scheduler as patient has questions about referral to infectious disease. Patient states that he spoke with his PCP, Dr. Hickman ([phone]) who spoke with Dr. Vega in Infectious disease at [facility]. Dr. Hickman ordered lab work at [...] Status:Closed by EMILEE SO on 03/21/24 [facility] Anion gap [Moles/Vol] 14 mmol/L Normal 6-16 [facility] Comment on above: Performed By: #### 2 [id number] #### [facility] [address] [place] [address] Calcium [Mass/Vol] 9.4 mg/dL Normal 8.9-11.1 [facility] Comment on above: Performed By: #### 2 [id number] #### [facility] [address] [place] [address] Chloride [Moles/Vol] 104 mmol/L Normal 101-111 [facility] Comment on above: Performed By: #### 2 [id number] #### [facility] [address] [place] [address] CO2 [Moles/Vol] 24 mmol/L Normal 21-31 [facility] Comment on above: Performed By: #### 2 [id number] #### [facility] [address] [place] [address] Creatinine [Mass/Vol] 1.5 mg/dL High 0.5-1.3 [facility] Comment on above: Performed By: #### 2 769315 #### [facility] [address] [place] [address] Glucose [Mass/Vol] 109 mg/dL Normal 55-199 [facility] Comment on above: Performed By: #### 2 586430 #### [facility] [address] [place] [address] Potassium [Moles/Vol] 4.2 mmol/L Normal 3.5-5.3 [facility] Comment on above: Performed By: #### 2 686136 #### [facility] [address] [place] [address] Sodium [Moles/Vol] 138 mmol/L Normal 135-145 [facility] Comment on above: Performed By: #### 2 150847 #### [facility] [address] [place] [address] Urea nitrogen [Mass/Vol] 26 mg/dL High 5-21 [facility] Comment on above: Performed By: #### 2 [id number] #### [facility] [address] [place] [address] Urea nitrogen/Creatinine [Mass ratio] 17 No Units Normal 10-20 [facility] Comment on above: Performed By: #### 2 [id number] #### [facility] [address] [place] [address] Consent for Treatmenton 02-08 Consent for Treatment [id number]#1.0 0TIFF Normal [facility] [id number] 03-08-2024 HbA1c (Bld) [Mass fraction] 6.5 % High <=5.9 [facility] Comment on above: Performed By: #### 7 [id number] #### [facility] [address] [place] [address] eGFRon 03-08-2024 eGFR 48 mL/min/1.73 m2 Low >=59 [facility] Comment on above: Order Comment: Order added by Discern Expert. Performed By: #### 1 [id number] #### [facility] [address] [place] [address] Ambulatory Visit Summaryon 0 03-07-2024 Ambulatory Visit [...] EDT With: Kristofer SCHUSTER, Haider Bee Where: [facility] Invalid Interpretation Code [address] [place] [address]- \.br \ Monday 9:15 AM EDT \.br\ With: LATRICIA SCHUSTER, Araceli Treadwell\.br\ Where: [facility] Family Medicine Office/Clini c Noteon 03-07-2024 Family Medicine Office/Clinic Note HPI Staff Dong is a 73 year old male presenting for infection right leg referral to infectious disease and possible cultures called with info as she's not sure she'll be with her at this appt He was seen at [facility] and is having drg?? end of March, [...] Ordered: Basic Metabolic Panel Blood Culture Charcoal [facility] External Ambulatory Referral HgbA1c 2. Stage 3a chronic kidney disease (N18.31: Chronic kidney disease, stage 3a) - Will recheck today. - No concerns Ordered: Basic Metabolic Panel Blood Culture Charcoal [facility] External Ambulatory Referral HgbA1c 3. Stasis ulcer (I83.009: Varicose veins of unspecified lower extremity with ulcer of unspecified site) - Most likely the cause of number 1. - No ulcer today Ordered: Basic Metabolic Panel Blood Culture Charcoal [facility] External Ambulatory Referral HgbA1c 4. Morbid obesity with body mass index of 40.0-44.9 in adult (E66.01: Morbid (severe) obesity due to excess calories) - Diet and exercise advsied Ordered: Basic Metabolic Panel Blood Culture Charcoal Body Mass Index (BMI) documented 3008F Current tobacco non-user 1036F Depression Screening Negative 3352F [facility] External Ambulatory Referral HgbA1c Influenza immunization administered [...] Ordered: Basic Metabolic Panel Blood Culture Charcoal [facility] External Ambulatory Referral HgbA1c 6. BMI 40.0-44.9, [...] neuropathy Complex (more content not included)... Normal [facility] Comment on above: Result Comment: Elec tronically Signed By: Kristofer SCHUSTER, Haider Bee\.br\Date and Time Signed: 03/07/24 11:12 EDT Physician Referralon 024 Physician Referral [id number]#1. 00TIFF Normal [facility] CNOVon 02-29-2024 CNOV Office Visit (PAINMN ) DONG WHITMORE ([id number]) 1950 M Date Time Provider Department 02/29/24 1:30 PM HERBERTH ARAUJO PAINMN During your visit today, we recorded the following information about you: Temperature Pulse Blood pressure Weight 97.4 degrees 62/minute 138/73 122.5 kg Height 1.702 m Herberth Araujo MD, PhD 03/18/2024 7:05 PM Signed [facility] Pain Management Department New Patient Consultation Referring Physician: SELF Chief Complaint: Right third toe pain SUBJECTIVE: Dong Whitmore is a 73 year old male with a pertinent past medical history of diabetes who presents to [facility] for the evaluation of right third toe pain. 15-year history of right third toe pain. He notes that over this time the pain has become increasingly severe has caused him significant discomfort and suffering. He has been to many specialists in the [facility] area-over the course of the past [...] 16th pe (more content not included)... Normal [facility] Reminderson 02-09-2024 Reminders - From: Vandana Hilton MA (EU - Recalljakob Bermudez) To: - Bia Bermudez; Sent: 02/09/2024 13:50:30 EDT Show up: 06/09/2024 13:50:00 EDT Subject: renal us Reminder/Recall Addendum by Sharla Longoria on January 30, 2024 13:44:48 EDT From: Sharla Longoria (EU - Clinical) To: EU - Bia Bermudez; Sent: 01/30/2024 13:44:48 EDT Subject: FW: f/u after ESWL -Order for Renal US sent to FT Due Date/Time: 05/31/2024 13:44:00 EDT Caller Name: HAIM DONG A; Caller Number: H , B [phone] Addendum by Sharla Longoria on January 30, 2024 13:43:59 EDT Called pt and advised him of below message. Pt voiced understanding. Pt scheduled for 10/9/24 w/ TERRIE. Will send to [facility] recall for TERRIE. Addendum by Araceli BERMUDEZ MD on January 29, 2024 18:12:03 EDT From: Araceli BERMUDEZ MD To: - Clinical; Sent: 01/29/2024 18:12:03 EDT Subject: RE: f/u after ESWL -Order for Renal US sent to Caller Name: DONG WHITMORE; Caller Number: H , B [phone] Please let the patient know that the [...] months with a kidney ultrasound repeated. Thanks [facility] Addendum by Erica Rossi on January 29, 2024 13:40:04 EDT From: Erica Rossi ( - Pending Results) To: Araceli BERMUDEZ MD; Sent: 01/29/2024 13:40:04 EDT Subject: FW: f/u after ESWL -Order for Renal US sent to Caller Name: CHRISDONG DAVENPORT; Caller Number: H , B [phone] Pt s/p R ESWL 01/03, to get [...] 2024 12:57:58 EDT From: ASMITA Martines APRN, Sasha Holbrook (EU - RUPERT/Cook Messages [employer] Refills) To: EU - Pending Results; Sent: 01/19/2024 12:57:58 EDT Subject: FW: f/u after ESWL -Order for Renal US sent to Due Date/Time: 01/25/2024 12:57:00 EDT Caller Name: HAIM DONG Boom; Caller Number: H , B [phone] Addendum by Nan Hodges MA on January 19, 2024 12:33:50 EDT From: Nan Hodges MA (EU - Pending Results) To: EU - RUPERT/Cook Messages & Refills; Sent: 01/19/2024 12:33:50 EDT Subject: RE: f/u after ESWL -Order for Renal US sent to Due Date/Time: 01/25/2024 12:33:00 EDT Caller Name: HAIM DONG A; Caller Number: H , B [phone] Scheduled 01/24/24 @ [facility] From: Elena Robbins To: EU - Pending Results; Sent: 01/08/2024 09:17:33 EDT Subject: f/u after ESWL -Order for Renal US sent to Due Date/Time: 01/17/2024 09:17:00 EDT Caller Name: HAIM DONG A; Caller Number: H , B [phone] Pt is PO R ESWL 01/03 - he is to get renal US in 2 weeks and call for results if we don't contact him 1st - order sent to [facility] Sona 02-06-2024 CNPN Telephone (DENICE) DONG WHITMORE ([id number]) 1950 M Date Time Provider Department 02/06/24 FRANCOISE SINGLETARY During your visit today, we recorded the following information about you: Lela Hyatt RN 02/06/2024 10:46 AM Signed ----- Message from Francoise Singletary MD sent at 02/05/2024 3:12 PM EDT ----- Do you mind calling him and giving him the number to schedule at [facility] to discuss DRG? I'd suggest seeking an appointment with the following doctors who perform DRG implantation: Dr. Carlisle, Dr. Araujo, Dr. Dan, Dr. Moo Mcwilliams and Dr. Kamara may do DRG - I'm not sure. Thanks Lela! ----- Message ----- From: Livia Lester PA-C Sent: 02/05/2024 2:07 PM EDT To: Francoise Singletary MD No one on this side of [facility] that I know of does DRG so, we also send to [facility] I would just have Lela call [...] I know who do DRG are at [facility]. How do we refer him there? From what I remember, Truman Melendez Costandi and Moo do DRG - do you know of anyone else? Lela Hyatt RN 02/06/2024 10:55 AM Signed Called and [...] 1 additional time per the department policy. ThanksLivia PA-C Allergies As of Date: 02/06/2024 Noted [...] Status:Closed by LELA HYATT on 02/06/24 Normal [facility] CNOVon 02-05-2024 CNOV Office Visit (DENICE ) DONG WHITMORE ([id number]) 1950 M Date Time Provider Department 02/05/24 11:30 AM FRANCOISE SINGLETARY During your visit today, we recorded the following information about you: Pulse Blood pressure Weight 80/minute 131/70 124.7 kg Francoise Singletary MD 02/05/2024 3:14 PM Signed [facility] Department Consultation Date: February [...] The patient has seen other pain providers. [facility] Neurology OV 02/01/22 Assessment and Plan 71 [...] year old (more content not included)... Normal [facility] Renalon 01-26-2024 US Renal Exam Date/Time: [...] Rosenbaum MD Transcribed by: GREGORIO Technologist: HW [facility] Consent for Treatmenton 01-07 Consent for Treatment [id number] 0TIFF [facility] Consultation Noteon 01-22-20 Consultation Note [id number]#1.0 0TIFF [facility] Consultation Note [id number]#1.0 0TIFF Normal [facility] IntraOperative Documentson 0 01-08-2024 IntraOperative Documents [id number]#1.0 0TIFF Normal [facility] Postoperative Documentson Postoperative Documents [id number]. 00TIFF Normal [facility] Consent for Anesthesiaon Consent for Anesthesia [id number]. 00TIFF [facility] Discharge Instructionson Discharge Instructions [id number]#1. 00TIFF Normal [facility] IntraOperative Documentson 0 01-05-2024 IntraOperative Documents [id number]#1. 00TIFF Normal [facility] IntraOperative Documents [id number]#1. 00TIFF [facility] Main OR Intraoperative Recor don 01-05-2024 Main OR Intraoperative Record IntraOp Document Type FT Summary Primary Physician: Araceli BERMUDEZ MD Finalized Date/Time: 01/05/24 12:41:56 Pt. Name: DONG WHITMORE/Sex: 1950 Male Med Rec #: [id number] Physician: Araceli BERMUDEZ MD Financial #: [id number] Pt. Type: A Room/Bed: Admit/Disch: 01/04/24 06:41:12 - 01/04/24 12:00:26 Institution: [...] Loja Role Performed Anesthesiologist Surgeon - Primary Paste Up Artist Apprentice - Primary Document Control Specialist Time In 01/04/24 09:07:00 01/04/24 09:07:00 01/04/24 [...] Yes Time Out Augustin Paniagua Given Participants LATRICIA Chávez MD, Araceli Treadwell, Sim Ling, Rukhsana [...] ESWL Primary Procedure Yes No Primary Surgeon LATRICIA SCHUSTER, Araceli BERMUDEZ MD, Araceli Treadwell Start [...] and tissue Entry 1 Skin Integrity Intact, Vera, Warm, and Skin (more content not included)... Normal [facility] Preoperative Documentson Preoperative Documents [id number]. 00TIFF Normal [facility] Progress Note-Physicianon Progress Note-Physician Patient: DONG [...] meets criteria ( To home ). Normal [facility] Comment on above: Result Comment: Elec [...] Problems Vitamin D deficiency / SNOMED CT 05802382 / Confirmed Urgency of urination / SNOMED CT 195868989 / Confirmed Type 2 diabetes mellitus with hyperglycemia, without long-term current use of insulin / ICD-10-CM E11.65 / Confirmed Type 2 diabetes mellitus with peripheral vascular disease / SNOMED CT 474861293 / Confirmed linked DM with PVD per OP CDI policy. Type 2 diabetes mellitus with stage 3a chronic kidney disease and hypertension / SNOMED CT 724902221 / Confirmed linked DM with CKD and HTN per OP CDI policy. 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 Shoulder pain / SNOMED CT 04437054 / Confirmed Renal mass / SNOMED CT 746885699 / Confirmed Psoriasis / SNOMED CT 70094902 / Confirmed PVD (peripheral vascular disease) / SNOMED CT 9874428787 / Confirmed OA (osteoarthritis) / SNOMED CT 0426121720 / Confirmed ULISES (obstructive sleep apnea) / SNOMED CT 865891586 / Confirmed SANTANA (nonalcoholic steatohepatitis) / SNOMED CT 5325681577 / Confirmed Lumbar spondylosis / SNOMED CT 944530284 / Confirmed noted in 10/16/2023 Pain Management Consult Note page 3. added per OP CDI policy. Impotence / SNOMED CT 9610774658 / Confirmed History of kidney stones / SNOMED CT 4155708824 / Confirmed Hiatal hernia / SNOMED CT 944972663 / Confirmed GERD (gastroesophageal reflux disease) / SNOMED CT 784297840 / Confirmed Nerves / SNOMED CT 9243001305 / Confirmed Primary hypertension / SNOMED CT 77293690 / Confirmed Anticoagulated / SNOMED CT 461703344 / Confirmed Complex renal cyst / SNOMED CT [id number] / Confirmed Chronic painful diabetic neuropathy / SNOMED CT 8325998431 / Confirmed noted in 10/16/2023 Pain Management Consult Note page 3. added per OP CDI policy. Pain, foot, right, chronic / SNOMED CT 4708265088 / Confirmed noted in 10/16/2023 Pain Management Consult Note page 3. added per OP CDI policy. Chronic bilateral low back pain without sciatica / SNOMED CT 240856091 / Confirmed Stage 3a chronic kidney disease / SNOMED CT 2907334433 / Confirmed Excessive dietary caloric intake / SNOMED CT 861375633 / Confirmed Morbid obesity with body mass index of 40.0-44.9 in adult / SNOMED CT 8119273370 / Confirmed BPH with obstruction/lower urinary tract symptoms / SNOMED CT 5073513676 / Confirmed Anxiety / SNOMED CT 66376225 / Confirmed Allergic rhinitis / SNOMED CT 613773417 / Confirmed Acquired absence of right great toe / SNOMED CT 997198642 / Confirmed added per 07/24/2023 query response. Resolved: Neuropathy / SNOMED CT 4895056669 idiopathic chronic Resolved: Hyperlipidemia / SNOMED CT 02492544 Resolved: Depressed mood / SNOMED CT 790620755 Resolved: Amputation of toe of right foot / ICD-10-CM S98.131A Resolved: BPH - benign prostatic hyperplasia / SNOMED CT 9564247092 Resolved: Anxiety disorder / SNOMED CT 198170978 Canceled: Microscopic hematuria / SNOMED CT 060373335 Canceled: Kidney stone / IMO 72095 Canceled: Hypertension / SNOMED CT 7009553494 Canceled: HLD (hyperlipidemia) / SNOMED CT 23895670 Canceled: Glycosuria / SNOMED CT 88565182 Canceled: Diabetes / SNOMED CT 921059110 Histories Procedure history: TOE AMPUTATION on 11/16/2018 at 68 Years. Cysto, Lt retrogrades, Lt stent, Ureteral cath, Lt ESWL ([id number]) on 06/07/2018 at 67 Years. Comments: 06/21/2019 14:34 EDT - Vicente MEEHAN, Marilynn R Cysto, Lt retr (more content not included)... Normal [facility] Comment on above: Result Comment: Elec [...] mGy = na DAP = na Normal [facility] Capillary Glucose POCon 12-08 Glucose [Mass/Vol] 133 mg/dL High 55-99 [facility] Comment on above: Performed By: #### 2 82030575 #### [facility] [address] [place] [address] Consent for Procedure/Surger yon 01-04-2024 Consent for Procedure/Surgery [id number]#1. 00TIFF Normal [facility] Consent for Treatmenton 12-08 Consent for Treatment [id number]#1.0 0TIFF [facility] Discharge Instructionson Discharge Instructions DONG WHITMORE [...] Araceli BERMUDEZ MD Where: [facility] Invalid Interpretation Code [address] [id number]- \.br \ Monday 9:30 AM EDT \.br\ With:\.br\ Where: [facility] Comment on above: Result Comment: Elec tronically Signed By: Ector WALKER, Rakel Nur\.br\Date and Time Signed: 01/04/24 10:37 EDT H&P Updateon 01-04-2024 H&P Update [id number]#1. 00TIFF Normal [facility] Inpatient Patient Summaryon 01-04-2024 Inpatient Patient Summary [address] [address] [facility] Clinical Discharge Instructions PERSON INFORMATION Name: DONG WHITMORE PHYSICIANS Admitting Physician: Araceli BERMUDEZ MD Attending Physician: Araceli BERMUDEZ MD PCP: Haider Hickman MD Discharge Diagnosis: Comment: PATIENT EDUCATION INFORMATION Instructions: Lithotripsy, Care After Medication Leaflets: Follow up: With: Address: When: Araceli BERMUDEZ [address] [place] [address], [address], [place] [phone] Business (1) Comments: Please call my office [...] for follow-up With: Address: When: [address] [place] [address] [address] [facility] [address] Business (1) Type Location Start Finish State [facility] Office Visit [facility] 03/13/2024 9:45 AM 03/13/2024 10:00 AM Confirmed FM Open [facility] 03/26/2024 2:15 PM 03/26/2024 2:30 PM Confirmed FM Medicare Wellness Subsequent [facility] [place] 05/13/2024 9:30 AM 05/13/2024 10:30 AM Confirmed [facility] 10:30 AM 11/06/2024 10:45 AM Confirmed MEDICATION LIST New Medications [facility] #[id number], [address], [place] [id number], [phone] acetaminophen-hydrocod one (acetaminophen-hydroco done 325 mg-5 mg [...] Tablets By Mouth every day. Comment: Macario [facility] Main OR PACU I Recordon 12-08 Main OR PACU I Record PACU Phase I Document Type FT Summary Primary Physician: Araceli BERMUDEZ MD Finalized Date/Time: 01/04/24 10:17:21 Pt. Name: DONG WHITMORE/Sex: 1950 Male Med Rec #: [id number] Physician: Araceli BERMUDEZ MD Financial #: [id number] Pt. Type: A Room/Bed: [place] [address] Admit/Disch: 01/04/24 06:41:12 - Institution: Case Times [...] By: Sangita Ross RN 01/04/24 10:17 Normal [facility] Main OR PACU II Recordon Main OR PACU II Record PACU Phase II Document Type FT Summary Primary Physician: Araceli BERMUDEZ MD Finalized Date/Time: 01/04/24 12:01:26 Pt. Name: DONG WHITMORE/Sex: 1950 Male Med Rec #: [id number] Physician: Araceli BERMUDEZ MD Financial #: [id number] Pt. Type: A Room/Bed: Admit/Disch: 01/04/24 06:41:12 - 01/04/24 12:00:26 Institution: [...] Signed By: Rakel Barney RN 01/04/24 12:01 [facility] Main OR Preoperative Recordo n 01-04-2024 Main OR Preoperative Record PreOp Document Type FT Summary Primary Physician: Araceli BERMUDEZ MD Finalized Date/Time: 01/04/24 09:57:43 Pt. Name: DONG WHITMORE/Sex: 1950 Male Med Rec #: [id number] Physician: Araceli BERMUDEZ MD Financial #: [id number] Pt. Type: A Room/Bed: [facility]/ Admit/Disch: 01/04/24 06:41:12 - Institution: Case [...] Signed By: Sim Ling 01/04/24 09:57 Normal [facility] Monitor Recordon 01-04-2024 Monitor Record [id number]#1. 00TIFF Normal [facility] Operative Reporton Operative Report Patient: DONG [...] placed per urethra and a well-lubricated 22 Kinyarwanda is urethroscope with 30 degree lens then [...] pyelogram was then performed utilizing a 6 Kinyarwanda open-ended ureteral catheter. The ureter is normal [...] removed and he was transferred to the [facility] and then back to PACU in satisfactory condition, stable vital signs. Plan to be for discharge home with plans for a follow-up kidney ultrasound within the next couple weeks. Prescription sent to pharmacy for doxycycline for antibiotic prophylaxis as well as 7 pills of [place] 5/325. She was in agreement with the plan. . Estimated Blood Loss: 0 ml. Complications: None. Anesthesia type: General. [facility] Comment on above: Result Comment: Elec tronically Signed By: Araceli BERMUDEZ MD\Date and Time Signed: 01/04/24 10:09 EDT Outpatient Surgery Discharge Instructionon 01-04-2024 Outpatient Surgery Discharge Instruction [address] [address] Patient Discharge Instructions PERSON INFORMATION Name: DONG [...] THE NEAREST EMERGENCY ROOM OR CALL 911 I, CHRISDONG DAVENPORT Boom, have received the attached patient education materials/instructions and have verbalized understanding: May we do a follow up call? Yes No I was present when discharge instructions were given Patient Signature Date Clinican/Nurse Signature ___ Date Follow up: With: Address: When: Araceli BERMUDEZ [address] [place] [address], [address], [address] [address] Business (1) Comments: Please call [...] for follow-up With: Address: When: [place] [address] [address] [address] Business (1) Type Location Start Finish State [place] Office Visit [facility] [place] 03/13/2024 9:45 AM 03/13/2024 10:00 AM Confirmed FM Open [facility] [place] Ann 03/26/2024 2:15 PM 03/26/2024 2:30 PM Confirmed FM Medicare Wellness Subsequent [facility] [place] 05/13/2024 9:30 AM 05/13/2024 10:30 AM Confirmed [facility] Office Visit [facility] [place] 11/06/2024 10:30 AM 11/06/2024 10:45 AM Confirmed Pharmacy Information: You may receive a survey from [employer] asking you to rate your care experience. Your feedback is important and will help us understand what we do well and how we can improve the quality of care we provide to you, your loved ones and our community. It?s an honor to serve you. Thank you for choosing [facility] HERE ARE THE MEDICATION CHANGES THAT OCCURRED DURING YOUR HOSPITAL STAY New Medications [id number], [address], [place] [id number], [phone] acetaminophen-hydrocod one (acetaminophen-hydroco done 325 mg-5 mg [...] care p (more content not included)... Normal [facility] PT - Progress Noteson 2023 PT - Progress Notes [id number]#1.0 0TIFF [facility] Patient Education - Texton 0 01-04-2024 [...] these instructions at home: Medicines ? Take iasm-dou-xcewdzo and prescription medicines only as told by [...] forming. ? (more content not included)... Normal [facility] Physician Referralon 03-25-2 024 Physician Referral [id number]#1. 00TIFF Normal [facility] Physician Referral [id number]#1. 00TIFF Normal [facility] BMPon 12-29-2023 Anion gap [Moles/Vol] 13 mmol/L Normal 6-16 [facility] Comment on above: Performed By: #### 2 869085, 2708320, 61942533, 03942485 #### [facility] [address] [place] [address] Calcium [Mass/Vol] 9.1 mg/dL Normal 8.9-11.1 [facility] Comment on above: Performed By: #### 2 440435, 6424459, 23834532, 01755941 #### [facility] [address] [place] [address] Chloride [Moles/Vol] 106 mmol/L Normal 101-111 [facility] Comment on above: Performed By: #### 2 780099, 3163645, 95507192, 00012699 #### [facility] [address] [place] [address] CO2 [Moles/Vol] 25 mmol/L Normal 21-31 [facility] Comment on above: Performed By: #### 2 967766, 4995987, 78652918, 83151812 #### [facility] [address] [place] [address] Creatinine [Mass/Vol] 1.2 mg/dL Normal 0.5-1.3 [facility] Comment on above: Performed By: #### 2 820856, 9228976, 50088197, 71091436 #### [facility] [address] [place] [address] Glucose [Mass/Vol] 145 mg/dL Normal 55-199 [facility] Comment on above: Performed By: #### 2 693236, 8153889, 55404979, 08554554 #### [facility] [address] [place] [address] Potassium [Moles/Vol] 3.8 mmol/L Normal 3.5-5.3 [facility] Comment on above: Performed By: #### 2 537188, 5946893, 42321115, 88009893 #### [facility] [address] [place] [address] Sodium [Moles/Vol] 140 mmol/L Normal 135-145 [facility] Comment on above: Performed By: #### 2 632188, 2452133, 57030473, 21333418 #### [facility] [address] [place] [address] Urea nitrogen [Mass/Vol] 25 mg/dL High 5-21 [facility] Comment on above: Performed By: #### 2 771632, 1496905, 95722224, 29686268 #### [facility] [address] [place] [address] Urea nitrogen/Creatinine [Mass ratio] 21 No Units High 10-20 [facility] Comment on above: Performed By: #### 2 698667, 6757292, 99768214, 90255312 #### [facility] [address] [place] [address] CBC w/ Auto Diffon 4 Basophils/100 WBC (Bld) 0.5 % Normal 0.0-2.0 [facility] Comment on above: Performed By: #### 2 559511, 9130986, 98599694, 92162266 #### [facility] [address] [place] [address] Basophils/Leukocytes Auto (Bld) [Pure # fraction] 0.0 E9/L Normal 0.0-0.2 [facility] Comment on above: Performed By: #### 2 964560, 6229529, 02731290, 98782389 #### [facility] [address] [place] [address] Eosinophils (Bld) [#/Vol] 0.3 E9/L Normal 0.0-0.5 [facility] Comment on above: Performed By: #### 2 998073, 3007289, 28866219, 84223172 #### [facility] [address] [place] [address] Eosinophils/100 WBC (Bld) 5.7 % Normal 0.0-8.0 [facility] Comment on above: Performed By: #### 2 310551, 2474619, 65183707, 44750398 #### [facility] [address] [place] [address] Erythrocyte distribution width (RBC) [Ratio] 14.6 % High 10.9-14.2 [facility] Comment on above: Performed By: #### 2 177789, 8498025, 05782326, 61914923 #### [facility] [address] [place] [address] Hematocrit (Bld) [Volume fraction] 38.3 % Normal 37.7-49.0 [facility] Comment on above: Performed By: #### 2 226746, 3365549, 49784266, 78114759 #### [facility] [address] [place] [address] Hemoglobin (Bld) [Mass/Vol] 12.8 g/dL Low 13.5-17.5 [facility] Comment on above: Performed By: #### 2 276860, 8795612, 48719746, 91277347 #### [facility] [address] [place] [address] Lymphocytes (Bld) [#/Vol] 0.9 E9/L Low 1.0-4.0 [facility] Comment on above: Performed By: #### 2 156485, 9082950, 64686727, 51999250 #### [facility] [address] [place] [address] Lymphocytes/100 WBC (Bld) 17.1 % Normal 14.0-50.0 [facility] Comment on above: Performed By: #### 2 077815, 8038480, 79712265, 57751587 #### [facility] [address] [place] [address] MCH (RBC) [Entitic mass] 28.1 pg Normal 27.0-34.0 [facility] Comment on above: Performed By: #### 2 364776, 7716420, 53614093, 93228485 #### [facility] [address] [place] [address] MCHC (RBC) [Mass/Vol] 33.4 g/dL Normal 31.4-36.0 [facility] Comment on above: Performed By: #### 2 856284, 3732841, 96266576, 01349869 #### [facility] [address] [place] [address] MCV (RBC) [Entitic vol] 84.1 fL Normal 80.0-100.0 [facility] Comment on above: Performed By: #### 2 926710, 3628814, 23062860, 85591928 #### [facility] [address] [place] [address] Monocytes (Bld) [#/Vol] 0.4 E9/L Normal 0.2-1.0 [facility] Comment on above: Performed By: #### 2 797192, 8211193, 78831812, 05420543 #### [facility] [address] [place] [address] Neutrophils (Bld) [#/Vol] 3.9 E9/L Normal 2.0-7.5 [facility] Comment on above: Performed By: #### 2 005145, 6931944, 54725889, 40106771 #### [facility] [address] [place] [address] Neutrophils/100 WBC (Bld) 69.6 % Normal 36.0-75.0 [facility] Comment on above: Performed By: #### 2 971353, 0972384, 52281250, 96647413 #### [facility] [address] [address] Platelet 178.0 E9/L Normal 150.0-500.0 [facility] Comment on above: Performed By: #### 2 237865, 1062891, 73414947, 02852875 #### [facility] [address] [place] [address] Platelet mean volume (Bld) [Entitic vol] 8.4 fL Normal 6.4-10.8 [facility] Comment on above: Performed By: #### 2 466640, 0173678, 61281280, 41924205 #### [facility] [address] [address] RBC (Bld) [#/Vol] 4.6 E12/L Normal 4.3-5.9 [facility] Comment on above: Performed By: #### 2 333931, 0112071, 19109722, 50134359 #### [facility] [address] [address] WBC corrected for nucl RBC Auto (Bld) [#/Vol] 5.5 E9/L Normal 4.0-11.0 [facility] Comment on above: Performed By: #### 2 875521, 7249399, 27195574, 70211553 #### [facility] [address] [place] [address] Consent for Treatmenton 12-08 Consent for Treatment [id number]#1.0 0TIFF Normal [facility] PT & PTTon 12-29-2023 aPTT Coag (PPP) [Time] 35.7 second(s) Normal 25.1-36.5 [facility] Comment on above: Result Comment: Para meter 15 days - 4 weeks 1 - 5 months 6 - 11 months 1 - 5 years 6 - 10 years 11 - 17 years PTT Mean: 35.4 (27.6-45.6) Mean: 33.5 (24.8-40.7) Mean: 32.4 (25.1-40.7) Mean: 31.6 (24.0-39.2) Mean: 31.6 (26.9-38.7) Mean: 31.0 (24.6-38.4) Pediatric Reference ranges were obtained from a study by sun Wray. prepared from 1437 samples obtained at 7 different centers using the same coagulation reagent and instrumentation as [facility]. Currently there are no coagulation studies available worldwide for children to 14 days, and no normal ranges. Heparin therapeutic range (represented by Anti-Factor Xa activity of 0.2 - 0.4 U/mL) corresponds to PTT of 56.6 - 109.0 sec. Performed By: #### 2 736547, 0052129, 13115658, 87163836 #### [facility] [address] [place] [address] INR Coag (PPP) [Relative time] 1.23 {INR} Invalid Interpretation Code [facility] Comment on above: Result Comment: INR results are specifically intended to assess patients stabilized on long-term Anticoagulation therapy suggested INR?s ?Less Intensive Anticoagulation? 2.0 ? 3.0 Conventional Range 3.0 ? 4.5 Performed By: #### 2 484640, 7258767, 19257980, 49306922 #### [facility] [address] [place] [address] PT Coag (PPP) [Time] 13.8 second(s) High 9.4-12.5 [facility] Comment on above: Result Comment: 15 d [...] ranges were obtained from a study by danisha Wray prepared from 1437 samples obtained at 7 different centers using the same coagulation reagent and instrumentation as [facility]. Currently there are no coagulation studies available worldwide for children to 14 days, and no normal ranges. Performed By: #### 2 795723, 0318786, 67444785, 57031284 #### [facility] [address] [place] [address] UA with Cult Rflxon 12-29-19 24 Color (U) Light-Yellow Normal Yellow [facility] Comment on above: Result Comment: Micr oscopic readings are only performed on those samples that meet specific criteria set forth by [facility]. Performed By: #### 4 436602696 ####[facility] [address] [place] [address] Glucose (U) [Mass/Vol] Negative Normal Negative [facility] Comment on above: Performed By: #### 4 291965854 ####[facility] [address] [place] [address] Ketones Ql (U) Negative Normal Negative [facility] Comment on above: Performed By: #### 4 [id number] ####[facility] [address] [place] [address] UA Blood Negative Normal Negative [facility] Comment on above: Performed By: #### 4 440941217 ####[facility] [address] [place] [address] UA Clarity Clear Normal Clear [facility] Comment on above: Performed By: #### 4 024004461 ####[facility] [address] [place] [address] UA Leuk Est Negative Normal Negative [facility] Comment on above: Performed By: #### 4 123669237 ####[facility] [address] [place] [address] UA Nitrite Negative Normal Negative [facility] Comment on above: Performed By: #### 4 634697617 ####[facility] [address] [place] [address] UA pH 6.5 Invalid Interpretation Code 5.0-9.0 [facility] Comment on above: Performed By: #### 4 [id number] ####[facility] [address] [place] [address] UA Protein Trace Abnormal Negative [facility] Comment on above: Performed By: #### 4 [id number] ####[address] [address] UA Spec Grav 1.021 Invalid Interpretation Code 1.005-1.030 [facility] Comment on above: Performed By: #### 4 312269896 ####[address] [address] UA Urobilinogen Negative Normal Negative [facility] Comment on above: Performed By: #### 4 156141286 ####[address] [address] Urobilinogen (U) [Mass/Vol] Negative Normal Negative [facility] Comment on above: Performed By: #### 4 418751564 ####[address] [address] UA Spec Desc Clean Catch Normal [facility] Comment on above: Performed By: #### 4 872545386 ####[address] [address] XR Chest 2 Viewson XR Chest 2 Views Exam Date/Time: 12/29/2023 09:35 EDT Reason for Exam: P.A.T. Report [facility] [phone] IMPRESSION: No acute infiltrates or effusions, no [...] Denny MD, V. Transcribed by: DP Technologist: DPR Technical Comments Radiation Dose: Ka,r in mGy = na DAP = na Normal [facility] eGFRon 12-29-2023 eGFR 63 mL/min/1.73 m2 Normal >=59 [facility] Comment on above: Order Comment: Order added by Discern Expert. Performed By: #### 2 795545, 2919594, 80016664, 14573362 #### [facility] [address] [place] [address] Family Medicine Office/Clini c Noteon 12-28-2023 Family [...] Exam: UTD Last A1C: 7.1% 12/11/23 ( Danielboom Juanita) Statin: simvastatin 40mg Follow up for Mental [...] (12/05/2016), ysto, (more content not included)... Normal [facility] Comment on above: Result Comment: Elec tronically Signed By: Haider Hickman MD\.br\Date and Time Signed: 12/28/23 09:51 EDT Physician Orderon 12-28-2023 Physician Order [id number]#1.0 0TIFF [facility] Ambulatory Visit Summaryon 0 12-26-2023 Ambulatory [...] Follow-Up Appointments Monday 9:45 AM EDT With: LATRICIA SCHUSTER, Araceli Treadwell Where: [facility] Invalid Interpretation Code [address] [place] [address]- \.br \ Monday 9:30 AM EDT \.br\ With:\.br\ Where: [facility] CMPon 12-26-2023 Albumin [Mass/Vol] 4.2 g/dL Normal 3.3-5.0 [facility] Comment on above: Performed By: #### 2 242160, 0113354, 51249441, 8159631 ####[facility] [address] [place] [address] Albumin/Globulin (S) [Mass conc ratio] 1.6 Normal 1.1-2.2 [facility] Comment on above: Performed By: #### 2 074943, 0428904, 01173021, 4053630 ####[facility] [address] [place] [address] ALP [Catalytic activity/Vol] 67 Int._Unit/L Normal 21-98 [facility] Comment on above: Performed By: #### 2 991105, 4534649, 53726925, 4219567 ####[address] [address] ALT No additional P-5'-P [Catalytic activity/Vol] 20 Int._Unit/L Normal 6-46 [facility] Comment on above: Performed By: #### 2 117164, 5631975, 54593468, 6121406 ####[facility] [address] [place] [address] Anion gap [Moles/Vol] 10 mmol/L Normal 6-16 [facility] Comment on above: Performed By: #### 2 447677, 8890897, 66283613, 2636357 ####[facility] [address] [place] [address] AST [Catalytic activity/Vol] 21 Int._Unit/L Normal 5-43 [facility] Comment on above: Performed By: #### 2 760456, 6408768, 34590993, 2661361 ####[facility] [address] [place] [address] Bilirubin [Mass/Vol] 0.6 mg/dL Normal 0.0-1.1 [facility] Comment on above: Performed By: #### 2 262040, 1078934, 60879684, 8762055 ####[facility] [address] [place] [address] Calcium [Mass/Vol] 9.3 mg/dL Normal 8.9-11.1 [facility] Comment on above: Performed By: #### 2 517921, 9594803, 80707395, 3583787 ####[facility] [address] [place] [address] Chloride [Moles/Vol] 105 mmol/L Normal 101-111 [facility] Comment on above: Performed By: #### 2 924569, 4158551, 16205074, 9379324 ####[facility] [address] [place] [address] CO2 [Moles/Vol] 27 mmol/L Normal 21-31 [facility] Comment on above: Performed By: #### 2 919616, 5076802, 65793436, 7272116 ####[facility] [address] [place] [address] Creatinine [Mass/Vol] 1.3 mg/dL Normal 0.5-1.3 [facility] Comment on above: Performed By: #### 2 100363, 6829284, 71935119, 7658678 ####[facility] [address] [place] [address] Globulin (S) [Mass/Vol] 2.6 g/dL Normal 1.4-4.0 [facility] Comment on above: Performed By: #### 2 291478, 9946130, 82447361, 6635525 ####[facility] [address] [place] [address] Glucose [Mass/Vol] 135 mg/dL Normal 55-199 [facility] Comment on above: Performed By: #### 2 734927, 1489429, 66249459, 5849535 ####[facility] [address] [place] [address] Potassium [Moles/Vol] 4.1 mmol/L Normal 3.5-5.3 [facility] Comment on above: Performed By: #### 2 549502, 5779603, 20556578, 6938625 ####[facility] [address] [place] [address] Protein [Mass/Vol] 6.8 g/dL Normal 6.0-7.8 [facility] Comment on above: Performed By: #### 2 068817, 2844870, 30861980, 1450651 ####[facility] [address] [place] [address] Sodium [Moles/Vol] 138 mmol/L Normal 135-145 [facility] Comment on above: Performed By: #### 2 020385, 2189876, 08973771, 6408526 ####[facility] [address] [place] [address] Urea nitrogen [Mass/Vol] 27 mg/dL High 5-21 [facility] Comment on above: Performed By: #### 2 442286, 5209599, 15688571, 5340791 ####[facility] [address] [place] [address] Urea nitrogen/Creatinine [Mass ratio] 21 No Units High 10-20 [facility] Comment on above: Performed By: #### 2 296830, 4752504, 42510419, 5728256 ####[facility] [address] [place] [address] Lipid Panelon 12-26-2023 Cholesterol [Mass/Vol] 118 mg/dL Low 120-200 [facility] Comment on above: Performed By: #### 2 681428, 2594548, 95745124, 9124939 ####[facility] [address] [place] [address] Cholesterol in HDL [Mass/Vol] 33 mg/dL Invalid Interpretation Code [facility] Comment on above: Result Comment: '>= 60 LOW RISK' '<= 40 HIGH RISK' Performed By: #### 2 700449, 5664992, 96346418, 1988781 ####[facility] [address] [place] [address] Cholesterol in LDL [Mass/Vol] 57 mg/dL Normal <=129 [facility] Comment on above: Performed By: #### 2 180033, 3909216, 88559310, 1171135 ####[facility] [address] [place] [address] Cholesterol in VLDL [Mass/Vol] 45 mg/dL High 7-40 [facility] Comment on above: Performed By: #### 2 450677, 8704059, 98880167, 1321889 ####[facility] [address] [place] [address] Triglyceride [Mass/Vol] 225 mg/dL High <=149 [facility] Comment on above: Performed By: #### 2 722095, 9993481, 35291703, 8373708 ####[facility] [address] [facility] [place] [address] U Microalbon 12-26-2023 Albumin DL <= 20 mg/L (U) [Mass/Vol] 5.8 mg/dL High 0.0-1.9 [facility] Comment on above: Performed By: #### 1 650686239, 73207699 ####[facility] [address] [place] [address] U Protein/Creat Ratioon 12-07 Protein/Creatinine (U) [Ratio] 20.90 mg/gm Cr Normal .00-200.00 [facility] Comment on above: Performed By: #### 1 [id number], 66560874 ####[facility] [address] [place] [address] U Creatinine 99.4 mg/dL Invalid Interpretation Code [facility] Comment on above: Performed By: #### 1 [id number], 50838971 ####[facility] [address] [place] [address] Ur Total Protein 20.8 mg/dL Invalid Interpretation Code [facility] Comment on above: Performed By: #### 1 [id number], 66680051 ####[facility] [address] [place] [address] Vit B12on 12-26-2023 Cobalamin (Vitamin B12) [Mass/Vol] 348 pg/mL Normal 50-1500 [facility] Comment on above: Performed By: #### 2 442870, 1911790, 31662735, 9454146 ####[place] [place] [address] eGFRon 12-26-2023 eGFR 57 mL/min/1.73 m2 Low >=59 [facility] Comment on above: Order Comment: Order added by Discern Expert. Performed By: #### 2 926638, 1718636, 57971718, 2857666 ####[address] [place] [address] Pre-Visit Planningon 024 Pre-Visit Planning - From: Ceci Yu To: Kristofer SCHUSTER, Haider Bee; Sent: 12/20/2023 09:56:36 EDT Subject: Pre-Visit Planning Due Date/Time: 12/20/2023 09:56:00 EDT Caller Name: HAIM DONG Nur; Caller Number: H , B [phone] Sd Dr. Hickman. During a pre-visit planning chart [...] feel free to contact me at extension [phone]. Thank you! 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 Normal [address] [facility] Consultation Noteon 12-08-19 Consultation Note [id number]#1.0 0TIFF Normal [facility] RAD - MISCon 11-14-2023 RAD - MISC [id number]#1.0 0TIFF Normal [facility] RAD - Ultrasound Reporton RAD - Ultrasound Report [id number]#1.0 0TIFF Normal [facility] RAD - Ultrasound Report [id number]#1.0 0TIFF Normal [facility] RAD - MISCon 10-30-2023 RAD - MISC [id number]#1.00 TIFF Normal [facility] RAD - MRI Reporton RAD - MRI Report [id number]#1.00 TIFF Normal [facility] Screenson 10-20-2023 Screens [id number]#1. 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 Your Care Team Attending Physician - Araceli BERMUDEZ MD Primary Care Physician - Haider Hickman MD This Is Your Medications List sodium [...] Follow-Up Appointments 2023 1:00 PM EDT With: Haider Hickman MD Where: [facility] Invalid Interpretation Code [address] [place] [address]- \.br \ Monday 10:30 AM EST \.br\ With: Araceli BERMUDEZ MD\.br\ Where: [facility] Patient Educationon 10-18-19 Patient Education Nephrology [...] ? 8 oz (237 mL) of milk, bnshowd-ffgunndjyvcj-p airy milk, and calcium-fortifiedfruit juice. Calcium-fortified means [...] Spinach (cooked), rhubarb, beets, sweet potatoes, and Andorran chard. ? Peanuts. ? Potato chips, icelandic fries, and baked potatoes with skin on. ? Nuts and nut products. ? Chocolate. ? If you regularly take a diuretic medicine, make sure to eat at least 1 or 2 servings of fruits or vegetables that are high in potassium each day. These include: ? Avocado. ? Banana. ? Greenup, prune, carrot, or tomato juice. ? Baked [...] fish oil, or vitamin B6. ? Take zbza-uyf-bbqrheg and prescription medicines only as told by your health care provider. These include supplements. What foods sh (more content not included)... [facility] Reminderson 10-18-2023 Reminders - From: Roya Álvarez To: PREM Bermudez; Sent: 10/18/2023 15:39:39 EST Show up: 08/18/2024 15:39:00 EST Subject: Renal US Due Date/Time: 09/17/2024 15:39:00 EST Pt needs scheduled for TERRIE prior to 1 year appointment. Being done at [facility]. order placed. Normal [facility] Urology Office/Clinic Noteon 10-18-2023 Urology Office/Clinic [...] with voice recognition artificial intelligence software, specifically YODIL, ApoCell and or [email or web address]. Substitutions may have occurred due to the [...] plan Follow-up With When Contact Information Araceli BERMUDEZ MD, URL [address] [place] [id number]- Additional Instructions: 1 year w/ renal US Patient Education Dietary Guidelines to Help Prevent Kidney Stones I, Roya Álvarez, personally scribed for Dr. Bermuedz on 10/18/2023 15:40:43. . Documentation recorded by [...] benign pr (more content not included)... 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 Review of Systems PHQ [...] with voice recognition artificial intelligence software, specifically YODIL, ApoCell and or [email or web address]. Substitutions may have occurred due to the inherent limitations of voice recognition and artificial intelligence software. ATTESTATION: Documentation services were performed after patient or guardian consented to allow [employer] to record this visit. HEMANTH environmental programs specialist and provider reviewed before signing. HEMANTH: [...] under fluo (more content not included)... Normal [facility] Comment on above: Result Comment: Elec tronically Signed By: Kristofer SCHUSTER, Haider Bee\.br\Date and Time Signed: 09/27/23 09:49 EST\.br\Electronically Co-Signed By: Sarah Louis H\.br\Date and Time Co-Signed: 09/20/23 16:22 EST Ambulatory [...] SCHUSTER, Araceli Treadwell Where: [facility] Invalid Interpretation Code [address] [place] [id number]- \.br \ Monday 9:30 AM EDT \.br\ With:\.br\ Where: [facility] Family Medicine [facility] Consultation Noteon 09-18-20 Consultation Note [id number]#1.0 0TIFF Normal [facility] A1C with Estimated Average 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 Result Comment: Incr eased risk for diabetes: 5.7 - 6.4 diabetes: >6.4 glycemic control for adults with diabetes: <7.0 Performed By: #### A 1C [facility] #### [place] [id number] [facility] Glucose - FINGER STICKon Glucose [Mass/Vol] 138 mg/dL [employer] Other Glucose mean value [Mass/vol ume] in Blood Estimated from glycated hemoglobinOrdered By: Aldo Middleton on 09-11-2023 Average glucose Estimated from glycated hemoglobin (Bld) [Mass/Vol] 151 mg/dL [facility] Hemoglobin A1c percentageOrd ered By: Aldo Middleton on 09-11-2023 HbA1c (Bld) [Mass fraction] 6.9 % 4.3-5.6 [facility] Comment on above: Increased risk for d iabetes: 5.7 - 6.4diabetes: >6.4glycemic control for adults with diabetes: <7.0 Consultation Noteon 09-06-20 Consultation Note [id number]#1.00 TIFF Normal [facility] Consultation Noteon 08-28-20 Consultation Note [id number]#1.00 TIFF Normal [facility] US UNI ankle/arm indiceson 1 10-24-2022 US UNI ankle/arm indices [facility] [place] [address] [place], [place] [address] Ultrasound Report Signed Patient: Dong Whitmore MR#: [id number] : 1950 Acct:[id number] Age/Sex: 73 / M ADM Date: 08/24/23 Loc: [facility] Room: Type: [facility] Attending Dr: Eligio Soni MD Ordering Provider: [...] Eligio Soni MD08/24/2023 3:31 PM Dictation Location: [id number] Tech: Britney Sotelo Transcribed By: CIRO 08/24/23 1531 Dictated By: Eligio Soni MD 08/24/23 1530 Signed By: 08/24/23 1531 Normal [facility] US venous duplex LE RTon US venous duplex LE RT [facility] [place] [address] Ultrasound Report Signed Patient: Dong Whitmore MR#: [id number] : 1950 Acct:[id number] Age/Sex: 73 / M ADM Date: 08/24/23 Loc: [facility] Room: Type: [facility] Attending Dr: Eligio Soni MD Ordering Provider: [...] Eligio Soni MD08/24/2023 3:31 PM Dictation Location: [id number] Tech: Coby Gibson Transcribed By: CIRO 08/24/231530 Dictated By: Eligio Soni MD 08/24/231530 Signed By: 08/24/231530 [facility] Ambulatory Visit Summaryon 1 10-21-2022 Ambulatory [...] EST With: Kristofer SCHUSTER, Haider Bee Where: [facility] Invalid Interpretation Code [address], [address] [place] [address]- \.br \ Monday 9:30 AM EDT \.br\ With:\.br\ Where: [facility] Family Medicine Office/Clini c Noteon 08-21-2023 [...] kidney d (more content not included)... Normal [facility] Comment on above: Result Comment: Elec [...] oz glass (more content not included)... Normal [facility] Pre-Visit Planningon 023 Pre-Visit Planning - From: Ceci Yu To: Haider Hickman MD; Sent: 08/17/2023 10:44:28 EST Subject: Pre-Visit Planning Due Date/Time: 08/17/2023 10:44:00 EST Caller Name: DONG WHITMORE; Caller Number: H , B [phone] Sd Dr. Hickman. During a pre-visit planning chart [...] feel free to contact me at extension [phone]. Thank you! Ceci Yu LPN Invalid Interpretation Code [address] [facility] Consultation Noteon 08-10-20 Consultation Note [id number]#1.0 0TIFF Normal [facility] Family Medicine Office/Clini c Noteon 07-26-2023 Family Medicine Office/Clinic Note HPI Staff Dong is a 72 year old male presenting for 3 month follow up dm, htn, anxiety Do you have any of the following symptoms? Foot Exam: UTD by sharlene Eye Exam: UTD few weeks ago Last A1C: done at sharlene's office 7.2 last time Statin: simvastatin 40mg [...] continue to monitor along. Ordered: A1c POC 16415 Body Mass Index (BMI) documented 3008F Current [...] disease) - As above Ordered: A1c POC 40819 Body Mass Index (BMI) documented 3008F Current [...] stage 3a) - Stable Ordered: A1c POC 14927 Body Mass Index (BMI) documented 3008F Current [...] - No new issues Ordered: A1c POC 32948 Body Mass Index (BMI) documented 3008F Current [...] - BMI education given Ordered: A1c POC 59683 Body Mass Index (BMI) documented 3008F Current [...] last ye (more content not included)... Normal [facility] Comment on above: Result Comment: Elec [...] numbers. This can be done either in [place]ian (U.S.) or metric measurements. Note that charts and online BMI calculators are available to help you find your BMI quickly and easily without having to do these calculations yourself. To calculate your BMI in [place]ian (U.S.) measurements: 1. Measure your weight in [...] for Disease Control and Prevention: www.cdc.gov ? [place] Heart Association: www.heart.org ? National Heart, Lung, and Blood Enterprise: www.nhlbi.nih.gov Summary ? Body mass index (BMI) is a number that is calculated from a person's weight and height. ? BMI may help estimate how much of a person's weight is composed of fat. BMI can help identify those who may be at higher risk for certain medical problems. ? BMI can be measured using Zambian measurements or metric measurements. ? BMI charts are used to identify whether you are underweight, normal weight, overweight, or obese. This information is not intended to replace advice given to you by your health care provider. Make sure you discuss any questions you have with your health care provider. Document Revised: 06/17/2020 Document Reviewed: 04/24/2020 Elsefoc.us Patient Education ? 2022 [email or web address]. [facility] Physician Referralon 023 Physician Referral [id number]#1. 00TIFF [facility] Pre-Visit Planningon 023 Pre-Visit Planning - From: Ceci Yu To: Kristofer SCHUSTER, Haider Bee; Sent: 07/24/2023 15:20:33 EDT Subject: Pre-Visit Planning Due Date/Time: 07/24/2023 15:20:00 EDT Caller Name: DONG WHITMORE; Caller Number: H , B [phone] Sd Dr. Hickman. During a pre-visit planning chart [...] feel free to contact me at extension [phone]. Thank you! Ceci Yu LPN From: Kristofer SCHUSTER, Haider Bee To: Ceci Yu; Sent: 07/24/2023 16:58:10 EDT Subject: RE: Pre-Visit Planning Caller Name: DONG WHITMORE; Caller Number: H , B [phone] OK to add the first one. Thank you Normal [address] [place] [address] A1C HEMOGLOBINon 02-14-2023 HbA1c (Bld) [Mass fraction] 7.6 % [employer] Other Glucose - FINGER STICKon Glucose [Mass/Vol] 215 mg/dL [employer] Other HbA1c (Bld) [Mass fraction]o n 02-14-2023 A1C HEMOGLOBIN [email or web address] (Abundant Closet) [facility] [employer] Other ECHOCARDIO M/2D COMPLETEon 0 12-30-2022 ECHOCARDIO M/2D COMPLETE Patient: DONG WHITMORE. Exam Date: 12/30/2022 : 1950 Gender:M Ordering : MARY APARICIO [facility] Admission #: [id number] Family : Order #: [id number] CLICK HERE TO VIEW EXAM ECHOCARDIOGRAM REPORT [...] Thibodeaux M.D. on 12/30/2022 at 18:49 Normal [facility] NM STRESS/REST MULTIon 12-29 NM STRESS/REST MULTI Patient: DONG WHITMORE Exam Date: 12/29/2022 : 1950 Gender:M Ordering : MARY APARICIO [facility] Admission #: [id number] Family : Order #: [id number] CLICK HERE TO VIEW EXAM RADIOLOGY REPORT [...] Morales M.D. on 12/30/2022 at 09:41 Normal [facility] US MAMI DOP LEG RTon 12-09-19 US [...] by: MORGAN ROJO Date: 2022-12-08 16:15 Normal [facility] TSHon 11-25-2022 TSH 2.370 uIU/mL Normal 0.358-3.740 [facility] Comment on above: Performed By: #### T SH #### [facility] [address] [place] [address] [address] Eli Jarvis BNPon 11-08-2022 Natriuretic peptide B (Bld) [Mass/Vol] 122.0 pg/mL Normal <=900.0 [facility] Comment on above: Performed By: #### C MP, BNP #### [facility] [address] [place] [address] Dr. Eli Jarvis CBC AUTO DIFFon 11-08-2022 BASO # 0.1 103/ul Normal 0.0-0.1 [facility] Comment on above: Performed By: #### C BC ####[facility] [address] [place] [address]DrSuzie Jarvis Basophils/100 WBC (Bld) 0.7 % Normal 0.2-2.0 [facility] Comment on above: Performed By: #### C BC ####[facility] [address] [place] [address]DrSuzie Jarvis EO # 0.2 103/ul Normal 0.0-0.7 [facility] Comment on above: Performed By: #### C BC ####[facility] [address] [place] [address]DrSuzie Jarvis Eosinophils/100 WBC (Bld) 3.5 % Normal 0.9-7.0 [facility] Comment on above: Performed By: #### C BC ####[facility] [address] [place] [address]DrSuzie Jarvis Erythrocyte distribution width (RBC) [Ratio] 13.8 % Normal 11.0-15.0 [facility] Comment on above: Performed By: #### C BC ####[facility] [address] [place] [address]Dr. Eli Jarvis Hematocrit (Bld) [Volume fraction] 42.0 % Normal 42.0-54.0 [facility] Comment on above: Performed By: #### C BC ####[facility] [address] [place] [address]Dr. Eli Jarvis Hemoglobin (Bld) [Mass/Vol] 13.8 g/dL Critically low 14.0-18.0 [facility] Comment on above: Performed By: #### C BC ####[facility] [address] [place], [place] [address]Dr. Eli Jarvis IG # 0.03 10e3/ul Normal 0.00-0.03 [facility] Comment on above: Performed By: #### C BC ####[facility] [address] [place], [place] [address]Dr. Eli Jarvis IG % 0.4 % Normal 0.0-0.5 [facility] Comment on above: Performed By: #### C BC ####[facility] [address] [place], [place] [address]Dr. Eli Matheus LYMPH # 1.3 103/ul Normal 1.2-3.8 [facility] Comment on above: Performed By: #### C BC ####[facility] [address] [place], [place] [address]DrSuzie Sparklealine Jarvis Lymphocytes/100 WBC (Bld) 18.8 % Critically low 20.5-60.0 [facility] Comment on above: Performed By: #### C BC ####[facility] [address] [place] [address]Dr. Sparklealine Jarvis MANUAL DIFF REQ NO Normal [facility] Comment on above: Performed By: #### C BC ####[facility] [address] [place] [address]DrSuzie Jarvis MCH (RBC) [Entitic mass] 27.8 pg Normal 25.9-34.0 [facility] Comment on above: Performed By: #### C BC ####[facility] [address] [place] [address]Dr. Eli Matheus MCHC (RBC) [Mass/Vol] 32.9 g/dL Normal 29.9-35.2 [facility] Comment on above: Performed By: #### C BC ####[facility] [address] [place] [address]Dr. Eli Jarvis MCV (RBC) [Entitic vol] 84.7 fL Normal 80.0-94.0 [facility] Comment on above: Performed By: #### C BC ####[facility] [address] [place], [place] [address]Dr. Eli Jarvis MONO # 0.6 103/ul Normal 0.3-0.8 [facility] Comment on above: Performed By: #### C BC ####[facility] [address] [place], [place] [address]Dr. Eli Jarvis Monocytes/100 WBC (Bld) 8.5 % Normal 1.7-12.0 [facility] Comment on above: Performed By: #### C BC ####[facility] [address] [place], [place] [address]Dr. Eli Jarvis NEUT # 4.7 103/ul Normal 1.4-6.5 [facility] Comment on above: Performed By: #### C BC ####[facility] [address] [place], [place] [address]Dr. Eli Jarvis Neutrophils/100 WBC (Bld) 68.1 % Normal 43.0-75.0 [facility] Comment on above: Performed By: #### C BC ####[facility] [address] [place], [place] [address]Dr. Eli Jarvis Platelet mean volume (Bld) [Entitic vol] 10.3 fL Normal 9.5-13.5 [facility] Comment on above: Performed By: #### C BC ####[facility] [address] [place], [place] [address]Dr. Eli Jarvis PLT 189 103/ul Normal 150-450 [facility] Comment on above: Performed By: #### C BC ####[facility] [address] [place], [place] [address]LjSuzie Jarvis RBC 4.96 106/ul Normal 4.70-6.10 [facility] Comment on above: Performed By: #### C BC ####[facility] [id number] [place], [place] [address]VdSuzie Javris WBC 7.0 103/ul Normal 4.0-11.0 [facility] Comment on above: Performed By: #### C BC ####[facility] [address] [place], [place] [address]ZfSuzie Jarvis PROF 14(COMP METB)on 023 Albumin [Mass/Vol] 3.6 g/dL Normal 3.4-5.0 [facility] Comment on above: Performed By: #### C MP, BNP #### [facility] [address] [address] [address] Eli Jarvis Albumin/Globulin [Mass ratio] 1.1 {ratio} Normal [facility] Comment on above: Performed By: #### C MP, BNP #### [facility] [address] [address] [address] Eli Jarvis ALP [Catalytic activity/Vol] 90 U/L Normal 46-116 [facility] Comment on above: Performed By: #### C MP, BNP #### [facility] [address] [address] [address] Eli Jarvis ALT [Catalytic activity/Vol] 42 U/L Normal 16-63 [facility] Comment on above: Performed By: #### C MP, BNP #### [facility] [address] [address] [address] Eli Jarvis Anion gap [Moles/Vol] 13.5 mmol/L Normal [facility] Comment on above: Performed By: #### C MP, BNP #### [facility] [address] [address] [address] Eli Jarvis AST [Catalytic activity/Vol] 26 U/L Normal 15-37 [facility] Comment on above: Performed By: #### C MP, BNP #### [facility] [address] [address] [address] Eli Jarvis Bilirubin [Mass/Vol] 0.4 mg/dL Normal 0.2-1.0 [facility] Comment on above: Performed By: #### C MP, BNP #### [facility] [address] [address] [address] Eli Jarvis Calcium [Mass/Vol] 9.3 mg/dL Normal 8.5-10.1 [facility] Comment on above: Performed By: #### C MP, BNP #### [facility] [address] [place] [address] Dr. Eli Jarvis Chloride [Moles/Vol] 104 mmol/L Normal 98-107 [facility] Comment on above: Performed By: #### C MP, BNP #### [facility] [address] [place] [address] Dr. Eli Jarvis CO2 [Moles/Vol] 25.7 mmol/L Normal 21.0-32.0 [facility] Comment on above: Performed By: #### C MP, BNP #### [facility] [address] [place] [address] Dr. Eli Jarvis Creatinine [Mass/Vol] 1.32 mg/dL Critically high 0.70-1.30 [facility] Comment on above: Performed By: #### C MP, BNP #### [facility] [address] [place] [address] Dr. Eli Jarvis EGFR-AF IRANIAN >60 Normal >=60 [facility] Comment on above: Performed By: #### C MP, BNP #### [facility] [address] [place] [address] Dr. Eli Jarvis EGFR-NON AF IRANIAN 53 mL/min/1.73m2 Critically low >=60 [facility] Comment on above: Performed By: #### C MP, BNP #### [facility] [address] [place] [address] Dr. Eli Jarvis Globulin (S) [Mass/Vol] 3.3 g/dL Normal [facility] Comment on above: Performed By: #### C MP, BNP #### [facility] [address] [address] [address] Eli Jarvis Glucose [Mass/Vol] 154 mg/dL Critically high 74-106 [facility] Comment on above: Performed By: #### C MP, BNP #### [facility] [address] [address] [address] Eli Jarvis Potassium [Moles/Vol] 4.2 mmol/L Normal 3.5-5.1 [facility] Comment on above: Performed By: #### C MP, BNP #### [facility] [address] [address] [address] Eli Jarvis Protein [Mass/Vol] 6.9 g/dL Normal 6.4-8.2 [facility] Comment on above: Performed By: #### C MP, BNP #### [facility] [address] [address] [address] Eli Jarvis Sodium [Moles/Vol] 139 mmol/L Normal 136-145 [facility] Comment on above: Performed By: #### C MP, BNP #### [facility] [address] [address] [address] Eli Jarvis Urea nitrogen [Mass/Vol] 23.0 mg/dL Critically high 7.0-18.0 [facility] Comment on above: Performed By: #### C MP, BNP #### [facility] [address] [address] [address] Eli Jarvsi Urea nitrogen/Creatinine [Mass ratio] 17.4 mg/mg Normal [facility] Comment on above: Performed By: #### C MP, BNP #### [facility] [address] [address] [address] Eli Jarvis A1C HEMOGLOBINon 11-07-2022 HbA1c (Bld) [Mass fraction] 7.6 % [employer] Other Glucose - FINGER STICKon Glucose [Mass/Vol] 172 mg/dL [employer] Other HbA1c (Bld) [Mass fraction]o n 11-07-2022 A1C HEMOGLOBIN [employer] Other US KIDNEYSon 2022 US KIDNEYS EXAMINATION: [...] by: MORGAN ROJO Date: 2022 18:30 Normal [facility] A1C HEMOGLOBINon 07-27-2022 HbA1c (Bld) [Mass fraction] 7.2 % [employer] Other Glucose - FINGER STICKon Glucose [Mass/Vol] 160 mg/dL [employer] Other HbA1c (Bld) [Mass fraction]o n 07-27-2022 A1C HEMOGLOBIN [employer] Other A1C HEMOGLOBINon 04-21-2022 HbA1c (Bld) [Mass fraction] 7.6 % [employer] Other Glucose - FINGER STICKon Glucose [Mass/Vol] 184 mg/dL [employer] Other HbA1c (Bld) [Mass fraction]o n 04-21-2022 A1C HEMOGLOBIN [employer] Other [employer] Creat Ratio,Uon Albumin DL <= 20 mg/L (U) [Mass/Vol] 10.1924708 mg/dL High 0.0-1.8 mg/dL [email or web address] ([employer]) [facility] Other Albumin/Creatinine DL <= 20 mg/L (U) [Mass ratio] 70.295540 mg/g High 0.0-30.0 mg/g [employer] Other Creatinine (U) [Mass/Vol] 222.2166226 mg/dL [employer] Other CBC AUTO DIFFon 04-07-2022 BASO # 0.0 103/ul Normal 0.0-0.1 [facility] Comment on above: Performed By: #### C BC #### [facility] [address] [place] [address] Dr. Eli Jarvis Basophils/100 WBC (Bld) 0.6 % Normal 0.2-2.0 [facility] Comment on above: Performed By: #### C BC #### [facility] [address] [place] [address] Dr. Eli Jarvis EO # 0.2 103/ul Normal 0.0-0.7 [facility] Comment on above: Performed By: #### C BC #### [facility] [address] [place] [address] Dr. Eli Jarvis Eosinophils/100 WBC (Bld) 2.9 % Normal 0.9-7.0 [facility] Comment on above: Performed By: #### C BC #### [facility] [address] [place] [address] Dr. Eli Jarvis Erythrocyte distribution width (RBC) [Ratio] 13.8 % Normal 11.0-15.0 [facility] Comment on above: Performed By: #### C BC #### [facility] [address] [place] [address] Dr. Eli Jarvis Hematocrit (Bld) [Volume fraction] 40.7 % Critically low 42.0-54.0 [facility] Comment on above: Performed By: #### C BC #### [facility] [address] [place] [address] Dr. Eli Jarvis Hemoglobin (Bld) [Mass/Vol] 13.3 g/dL Critically low 14.0-18.0 [facility] Comment on above: Performed By: #### C BC #### [facility] [address] [place] [address] Dr. Eli Jarvsi IG # 0.04 10e3/ul Critically high 0.00-0.[address] [facility] Comment on above: Performed By: #### C BC #### [facility] [address] [place] [address] Dr. Eli Jarvis IG % 0.6 % Critically high 0.0-0.5 [facility] Comment on above: Performed By: #### C BC #### [facility] [address] [place] [address] Dr. Eli Jarvis LYMPH # 1.3 103/ul Normal 1.2-3.8 [facility] Comment on above: Performed By: #### C BC #### [facility] [address] [place] [address] Dr. Eli Jarvis Lymphocytes/100 WBC (Bld) 18.7 % Critically low 20.5-60.0 [facility] Comment on above: Performed By: #### C BC #### [facility] [address] [place] [address] Dr. Eli Jarvis MANUAL DIFF REQ NO Normal [facility] Comment on above: Performed By: #### C BC #### [facility] [address] [place] [address] Dr. Eli Jarvis MCH (RBC) [Entitic mass] 28.1 pg Normal 25.9-34.0 [facility] Comment on above: Performed By: #### C BC #### [facility] [address] [place] [address] Dr. Eli Jarvis MCHC (RBC) [Mass/Vol] 32.7 g/dL Normal 29.9-35.2 [facility] Comment on above: Performed By: #### C BC #### [facility] [address] [place] [address] Dr. Eli Jarvis MCV (RBC) [Entitic vol] 86.0 fL Normal 80.0-94.0 [facility] Comment on above: Performed By: #### C BC #### [facility] [address] [place] [address] Dr. Eli Jarvis MONO # 0.4 103/ul Normal 0.3-0.8 [facility] Comment on above: Performed By: #### C BC #### [facility] [address] [place] [address] Dr. Eli Jarvis Monocytes/100 WBC (Bld) 6.2 % Normal 1.7-12.0 [facility] Comment on above: Performed By: #### C BC #### [facility] [address] [place] [address] Dr. Eli Jarvis NEUT # 4.9 103/ul Normal 1.4-6.5 [facility] Comment on above: Performed By: #### C BC #### [facility] [address] [place] [address] Dr. Eli Jarvis Neutrophils/100 WBC (Bld) 71.0 % Normal 43.0-75.0 [facility] Comment on above: Performed By: #### C BC #### [facility] [address] [place] [address] Dr. Eli Jarvis Platelet mean volume (Bld) [Entitic vol] 9.9 fL Normal 9.5-13.5 [facility] Comment on above: Performed By: #### C BC #### [facility] [address] [place] [address] Dr. Eli Jarvis PLT 184 103/ul Normal 150-450 [facility] Comment on above: Performed By: #### C BC #### [facility] [address] [place] [address] Dr. Eli Jarvis RBC 4.73 106/ul Normal 4.70-6.10 [facility] Comment on above: Performed By: #### C BC #### [facility] [address] [place] [address] Dr. Eli Jarvis WBC 6.9 103/ul Normal 4.0-11.0 [facility] Comment on above: Performed By: #### C BC #### [facility] [address] [place], [place] [address] Dr. Eli Jarvis LIPID PROFILEon 04-07-2022 CHOL-HDL RATIO NORM SEE BELOW Normal [facility] Comment on above: Result Comment: 3.3 - 4.4 LOW RISK 4.4 - 7.1 AVERAGE RISK 7.1 - 11.0 MODERATE RISK >11.0 HIGH RISK Performed By: #### C MP, LIPID ####[facility] [address] [place], [place] [address]Tx. Eli Jarvis Cholesterol [Mass/Vol] 127 mg/dL Normal <=200 [facility] Comment on above: Performed By: #### C MP, LIPID ####[facility] [address] [place], [place] [address]Dh. Eli Jarvis Cholesterol in HDL [Mass/Vol] 36 mg/dL Critically low 40-60 [facility] Comment on above: Performed By: #### C MP, LIPID ####[facility] [address] [id number] Eli Jarvis Cholesterol in LDL [Mass/Vol] 58.4 mg/dL Normal [facility] Comment on above: Performed By: #### C MP, LIPID ####[facility] [address] [place], [place] [address]Qj. Eli Jarvis Cholesterol.total/Ch olesterol in HDL [Mass ratio] 3.5 {ratio} Normal [facility] Comment on above: Performed By: #### C MP, LIPID ####[facility] [address] [id number]. Eli Jarvis HDL NORMAL > or = 60 mg/dl - LO W CARDIOVASCULAR RISK <40 mg/dl - HIGH CARDIOVASCULAR RISK Normal [facility] Comment on above: Performed By: #### C MP, LIPID ####[facility] [address] [id number]. Eli Jarvis LDL CALC NORMAL SEE BELOW Normal [facility] Comment on above: Result Comment: <100 mg/dl OPTIMAL 100 - 129 mg/dl NEAR OR ABOVE OPTIMAL 130 - 159 mg/dl BORDERLINE HIGH 160 - 189 mg/dl HIGH >190 mg/dl VERY HIGH Performed By: #### C MP, LIPID ####[facility] [address] [id number]. Eli Jarvis Triglyceride [Mass/Vol] 163 mg/dL Critically high <=150 [facility] Comment on above: Performed By: #### C MP, LIPID ####[facility] [address] [phone]. Eli Jarvis VLDL CALC 32.6 mg/dL Normal [facility] Comment on above: Performed By: #### C MP, LIPID ####[facility] [address] [id number]. Eli Jarvis PROF 14(COMP METB)on 022 Albumin [Mass/Vol] 3.8 g/dL Normal 3.4-5.0 [facility] Comment on above: Performed By: #### C MP, LIPID ####[facility] [address] [address]Dr. Eli Jarvis Albumin/Globulin [Mass ratio] 1.1 {ratio} Normal [facility] Comment on above: Performed By: #### C MP, LIPID ####[facility] [address] [address]Dr. Eli Jarvis ALP [Catalytic activity/Vol] 89 U/L Normal 46-116 [facility] Comment on above: Performed By: #### C MP, LIPID ####[facility] [address] [address]Dr. Eli Jarvis ALT [Catalytic activity/Vol] 43 U/L Normal 16-63 [facility] Comment on above: Performed By: #### C MP, LIPID ####[facility] [address] [phone]. Eli Jarvis Anion gap [Moles/Vol] 10.7 mmol/L Normal [facility] Comment on above: Performed By: #### C MP, LIPID ####[facility] [address] [phone]. Eli Jarvis AST [Catalytic activity/Vol] 24 U/L Normal 15-37 [facility] Comment on above: Performed By: #### C MP, LIPID ####[facility] [address] [address]Dr. Eli Jarvis Bilirubin [Mass/Vol] 0.2 mg/dL Normal 0.2-1.0 [facility] Comment on above: Performed By: #### C MP, LIPID ####[facility] [address] [address]Dr. Eli Jarvis Calcium [Mass/Vol] 9.1 mg/dL Normal 8.5-10.1 [facility] Comment on above: Performed By: #### C MP, LIPID ####[facility] [address] [address]Dr. Eli Jarvis Chloride [Moles/Vol] 104 mmol/L Normal 98-107 [facility] Comment on above: Performed By: #### C MP, LIPID ####[facility] [address] [place], [place] [address]Dr. Eli Jarvis CO2 [Moles/Vol] 27.5 mmol/L Normal 21.0-32.0 [facility] Comment on above: Performed By: #### C MP, LIPID ####[facility] [address] [place], [place] [address]Dr. Eli Jarvis Creatinine [Mass/Vol] 1.15 mg/dL Normal 0.70-1.30 [facility] Comment on above: Performed By: #### C MP, LIPID ####[facility] [address] [phone]. Eli Matheus EGFR-AF IRANIAN >60 Normal >=60 [facility] Comment on above: Performed By: #### C MP, LIPID ####[facility] [address] [address]Dr. Eli Jarvis EGFR-NON AF IRANIAN >60 Normal >=60 [facility] Comment on above: Performed By: #### C MP, LIPID ####[facility] [address] [phone]. Eli Jarvis Globulin (S) [Mass/Vol] 3.4 g/dL Normal [facility] Comment on above: Performed By: #### C MP, LIPID ####[facility] [address] [address]Dr. Eli Jarvis Glucose [Mass/Vol] 157 mg/dL Critically high 74-[address] [facility] Comment on above: Performed By: #### C MP, LIPID ####[facility] [address] [address]Dr. Eli Jarvis Potassium [Moles/Vol] 4.2 mmol/L Normal 3.5-5.1 [facility] Comment on above: Performed By: #### C MP, LIPID ####[facility] [address] [address]Dr. Eli Jarvis Protein [Mass/Vol] 7.2 g/dL Normal 6.4-8.2 [facility] Comment on above: Performed By: #### C MP, LIPID ####[facility] [address] [address]Dr. Eli Jarvis Sodium [Moles/Vol] 138 mmol/L Normal 136-145 [facility] Comment on above: Performed By: #### C MP, LIPID ####[facility] [address] [address]Dr. Eli Jarvis Urea nitrogen [Mass/Vol] 26.0 mg/dL Critically high 7.0-18.0 [facility] Comment on above: Performed By: #### C MP, LIPID ####[facility] [address] [address]Dr. Eli Jarvis Urea nitrogen/Creatinine [Mass ratio] 22.6 mg/mg Normal [facility] Comment on above: Performed By: #### C MP, LIPID ####[facility] [address] [address]Dr. Eli Matheus A1C HEMOGLOBINon 10-21-2021 HbA1c (Bld) [Mass fraction] 6.6 % [email or web address] ([employer]) [facility] Other Glucose - FINGER STICKon Glucose [Mass/Vol] 169 mg/dL [employer] Other HbA1c (Bld) [Mass fraction]o n 10-21-2021 A1C HEMOGLOBIN [facility] [employer] Other Comprehensive Metabolic Pane deann 07-29-2021 Albumin [Mass/Vol] 3.9 g/dL 3.2-5.5 [facility] [employer] Other Albumin/Globulin [Mass ratio] 1.6 {ratio} [facility] [employer] Other ALP [Catalytic activity/Vol] 63 U/L 32-92 [facility] [employer] Other ALT [Catalytic activity/Vol] 32 U/L 10-60 [facility] [employer] Other AST [Catalytic activity/Vol] 32 U/L 10-42 [facility] [employer] Other Bilirubin [Mass/Vol] 0.5 mg/dL 0.3-1.2 [facility] [employer] Other Calcium [Mass/Vol] 9.7 mg/dL 8.2-10.2 [facility] Other Chloride [Moles/Vol] 105 mmol/L 95-114 [facility] [employer] Other CO2 [Moles/Vol] 22.7 mmol/L 22.0-30.0 [facility] [employer] Other Creatinine [Mass/Vol] 1.28 mg/dL 0.64-1.27 [facility] [employer] Other Glucose [Mass/Vol] 111 mg/dL 70-100 [facility] [employer] Other Potassium [Moles/Vol] 4.1 mmol/L 3.5-5.1 [facility] Other Protein [Mass/Vol] 6.3 g/dL 6.1-7.9 [facility] Other Sodium [Moles/Vol] 139 mmol/L 136-146 [facility] Other Urea nitrogen [Mass/Vol] 23 mg/dL 07-01 [employer] Other Comprehensive Metabolic Panel 55 [employer] Other Comprehensive Metabolic Panel > 60 [employer] Other Comprehensive Metabolic Panel 2.4 [employer] Other Hepatitis Acute Panelon 10-2 Hepatitis Acute Panel Negative Negative [employer] Other Hepatitis Acute Panel <0.1 0.0-0.9 [employer] Other Vital Signs Date Time Vital Sign Value Performing Clinician Facility 04-24-2024 08:50-0400 Body height 170.2 cm Chiqui Robles MD Work Phone: [facility] 04-24-2024 08:50-0400 Body mass index (BMI) [Ratio] 42.28 kg/m2 Chiqui Robles MD Work Phone: [facility] 04-24-2024 08:50-0400 Body weight 122.47 kg Chiqui Robles MD Work Phone: [facility] 04-24-2024 08:50-0400 Diastolic blood pressure 89 mm[Hg] Chiqui Robles MD Work Phone: [facility] 04-24-2024 08:50-0400 Heart rate 61 /min Chiqui Robles MD Work Phone: [facility] 04-24-2024 08:50-0400 SaO2% (BldA) [Mass fraction] 95 % Chiqui Robles MD Work Phone: [facility] 04-24-2024 08:50-0400 Systolic blood pressure 122 mm[Hg] Chiqui Robles MD Work Phone: [facility] 02-29-2024 13:41-0400 Body height 170.2 cm Herberth Araujo MD, PhD Work Phone: [facility] 02-29-2024 13:41-0400 Body mass index (BMI) [Ratio] 42.29 kg/m2 Herberth Araujo MD, PhD Work Phone: [facility] 02-29-2024 13:41-0400 Body temperature 97.39 [degF] Herberth Araujo MD, PhD Work Phone: [facility] 02-29-2024 13:41-0400 Body weight 122.47 kg Herberth Araujo MD, PhD Work Phone: [facility] 02-29-2024 13:41-0400 Diastolic blood pressure 73 mm[Hg] Herberth Araujo MD, PhD Work Phone: [facility] 02-29-2024 13:41-0400 Heart rate 62 /min Herberth Araujo MD, PhD Work Phone: [facility] 02-29-2024 13:41-0400 SaO2% (BldA) [Mass fraction] 94 % Herberth Araujo MD, PhD Work Phone: [facility] 02-29-2024 13:41-0400 Systolic blood pressure 138 mm[Hg] Herberth Araujo MD, PhD Work Phone: [facility] 02-05-2024 12:17-0400 Body weight 124.74 kg Francoise Singletary MD Work Phone: [facility] 02-05-2024 12:17-0400 Diastolic blood pressure 70 mm[Hg] Francoise Singletary MD Work Phone: [facility] 02-05-2024 12:17-0400 Heart rate 80 /min Francoise Singletary MD Work Phone: [facility] 02-05-2024 12:17-0400 Systolic blood pressure 131 mm[Hg] Francoise Singletary MD Work Phone: [facility] 09-11-2023 11:00-0500 Body height 167.64 cm Aldo Middleton Other [facility] 09-11-2023 11:00-0500 Body mass index (BMI) [Ratio] 44.91 kg/m2 Tondra Mapus Other [employer] Other 09-11-2023 11:00-0500 Body weight 126.24 kg Tondra Mapus Other [employer] Other 09-11-2023 11:00-0500 Body weight 126.23 kg MD Scarlet Johnson Work Phone: [facility] 09-11-2023 11:00-0500 Diastolic blood pressure 82 mm[Hg] Tondra Mapus Other [facility] 09-11-2023 11:00-0500 Respiratory rate 18 /min Tondra Mapus Other [employer] Other 09-11-2023 11:00-0500 SaO2% (BldA) [Mass fraction] 99 % Tondra Mapus Other [employer] Other 09-11-2023 11:00-0500 Systolic blood pressure 153 mm[Hg] Tondra Mapus Other [facility] 08-24-2023 13:45-0500 Body height 167.64 cm Eligio Soni Other [facility] 08-24-2023 13:45-0500 Body mass index (BMI) [Ratio] 44.22 kg/m2 Eligio Soni Other [employer] Other 08-24-2023 13:45-0500 Body temperature 97.4 [degF] Eligio Soni Other [employer] Other 08-24-2023 13:45-0500 Body weight 124.29 kg Eligio oSni Other [employer] Other 08-24-2023 13:45-0500 Body weight 124.28 kg MD Scarlet Johnson Work Phone: [facility] 08-24-2023 13:45-0500 Diastolic blood pressure 60 mm[Hg] Eligio Soni Other [facility] 08-24-2023 13:45-0500 SaO2% (BldA) [Mass fraction] 97 % Eligiobrenda Soni Other [facility] [employer] Other 08-24-2023 13:45-0500 Systolic blood pressure 130 mm[Hg] Eligio Soni Other [facility] 03-07-2023 10:00-0400 Body height 167.64 cm Terry Kelley Other [employer] Other 03-07-2023 10:00-0400 Body mass index (BMI) [Ratio] 43.61 kg/m2 Terry Kelley Other [employer] Other 03-07-2023 10:00-0400 Body weight 122.56 kg Terry Kelley Other [employer] Other 03-07-2023 10:00-0400 Diastolic blood pressure 70 mm[Hg] Terry Kelley Other [employer] Other 03-07-2023 10:00-0400 Respiratory rate 20 /min Terry Kelley Other [employer] Other 03-07-2023 10:00-0400 SaO2% (BldA) [Mass fraction] 96 % Terry Kelley Other [employer] Other 03-07-2023 10:00-0400 Systolic blood pressure 134 mm[Hg] Terry Kelley Other [employer] Other 02-14-2023 09:45-0400 Body height 172.72 cm Tondra Mapus Other [employer] Other 02-14-2023 09:45-0400 Body mass index (BMI) [Ratio] 41.32 kg/m2 Tondra Mapus Other [employer] Other 02-14-2023 09:45-0400 Body weight 123.29 kg Tondra [facility] Other [facility] Other 02-14-2023 09:45-0400 Diastolic blood pressure 82 mm[Hg] Tondra Mapus Other [facility] Other 02-14-2023 09:45-0400 Respiratory rate 18 /min Tondra Mapus Other [facility] Other 02-14-2023 09:45-0400 SaO2% (BldA) [Mass fraction] 97 % Tondra Mapus Other [facility] Other 02-14-2023 09:45-0400 Systolic blood pressure 157 mm[Hg] Tondra Mapus Other [facility] Other 01-20-2023 12:15-0400 Body height 172.72 cm Carito Marfeelt Other [facility] Other 01-20-2023 12:15-0400 Body mass index (BMI) [Ratio] 40.71 kg/m2 Carito Fitt Other [facility] Other 01-20-2023 12:15-0400 Body weight 121.47 kg Carito West Other [facility] Other 01-05-2023 11:15-0400 Body height 172.72 cm Terry Kelley Other [facility] Other 01-05-2023 11:15-0400 Body mass index (BMI) [Ratio] 40.96 kg/m2 Terry Kelley Other [facility] Other 01-05-2023 11:15-0400 Body weight 122.2 kg Terry Rigoberto Other [facility] Other 01-05-2023 11:15-0400 Diastolic blood pressure 73 mm[Hg] Terry Kelley Other [facility] Other 01-05-2023 11:15-0400 Respiratory rate 18 /min Terry Kelley Other [facility] Other 01-05-2023 11:15-0400 SaO2% (BldA) [Mass fraction] 98 % Terry Kelley Other [facility] Other 01-05-2023 11:15-0400 Systolic blood pressure 143 mm[Hg] Terry Kelley Other [facility] Other 11-24-2022 12:15-0500 Body height 172.72 cm Carito Wisejosiane Other [facility] Other 11-24-2022 12:15-0500 Body mass index (BMI) [Ratio] 42.22 kg/m2 Carito Fitt Other [facility] Other 11-24-2022 12:15-0500 Body weight 125.96 kg Carito Fitt Other [facility] Other 11-18-2022 11:15-0500 Body height 172.72 cm Terry Kimblediff Other [facility] Other 11-18-2022 11:15-0500 Body mass index (BMI) [Ratio] 41.96 kg/m2 Terry Kimblediff Other [facility] Other 11-18-2022 11:15-0500 Body weight 125.19 kg Terry Kimblediff Other [facility] Other 11-18-2022 11:15-0500 Diastolic blood pressure 75 mm[Hg] eTrry Kimblediff Other [facility] Other 11-18-2022 11:15-0500 Respiratory rate 18 /min Terry Kimblediff Other [facility] Other 11-18-2022 11:15-0500 SaO2% (BldA) [Mass fraction] 99 % Terrynikolai Kelley Other [facility] Other 11-18-2022 11:15-0500 Systolic blood pressure 148 mm[Hg] Terry Kelley Other [facility] Other 11-07-2022 10:15-0500 Body height 172.72 cm Aldo Middleton Other [facility] Other 11-07-2022 10:15-0500 Body mass index (BMI) [Ratio] 42.58 kg/m2 Tondra Mapus Other [facility] Other 11-07-2022 10:15-0500 Body weight 127.05 kg Tondra Mapus Other [facility] Other 11-07-2022 10:15-0500 Diastolic blood pressure 83 mm[Hg] Tondra Mapus Other [facility] Other 11-07-2022 10:15-0500 Respiratory rate 18 /min Tondra Mapus Other [facility] Other 11-07-2022 10:15-0500 SaO2% (BldA) [Mass fraction] 98 % Tondra Mapus Other [facility] Other 11-07-2022 10:15-0500 Systolic blood pressure 170 mm[Hg] Tondra Mapus Other [facility] Other 10-18-2022 15:00-0500 Body height 172.72 cm Carito Fitt Other [facility] Other 2022 16:15-0400 Body height 172.72 cm Carito Fitt Other [facility] Other 07-27-2022 12:00-0400 Body height 172.72 cm Tondra Mapus Other [facility] Other 07-27-2022 12:00-0400 Body mass index (BMI) [Ratio] 40.9 kg/m2 Tondra Mapus Other [facility] Other 07-27-2022 12:00-0400 Body weight 122.02 kg Tondra Mapus Other [facility] Other 07-27-2022 12:00-0400 Diastolic blood pressure 75 mm[Hg] Tondra Mapus Other [facility] Other 07-27-2022 12:00-0400 Respiratory rate 20 /min Tondra Mapus Other [facility] Other 07-27-2022 12:00-0400 SaO2% (BldA) [Mass fraction] 97 % Tondra Mapus Other [facility] Other 07-27-2022 12:00-0400 Systolic blood pressure 141 mm[Hg] Tondra Mapus Other [facility] Other 06-08-2022 10:45-0400 Body height 172.72 cm Carito West Other [facility] Other 04-21-2022 12:00-0400 Body height 172.72 cm Tondra Mapus Other [facility] Other 04-21-2022 12:00-0400 Body mass index (BMI) [Ratio] 39.67 kg/m2 Tondra Mapus Other [facility] Other 04-21-2022 12:00-0400 Body weight 118.34 kg Tondra Mapus Other [facility] Other 04-21-2022 12:00-0400 Diastolic blood pressure 74 mm[Hg] Tondra Mapus Other [facility] Other 04-21-2022 12:00-0400 Respiratory rate 20 /min Tondra Mapus Other [facility] Other 04-21-2022 12:00-0400 SaO2% (BldA) [Mass fraction] 97 % Tondra Mapus Other [facility] Other 04-21-2022 12:00-0400 Systolic blood pressure 143 mm[Hg] Tondra Mapus Other [facility] Other 10-21-2021 12:00-0500 Body height 172.72 cm Tondra Mapus Other [facility] Other 10-21-2021 12:00-0500 Body mass index (BMI) [Ratio] 40.14 kg/m2 Tondra Mapus Other [facility] Other 10-21-2021 12:00-0500 Body weight 119.75 kg Tondra Mapus Other [facility] Other 10-21-2021 12:00-0500 Diastolic blood pressure 78 mm[Hg] Tondra Mapus Other [facility] Other 10-21-2021 12:00-0500 Respiratory rate 20 /min Tondra Mapus Other [facility] Other 10-21-2021 12:00-0500 SaO2% (BldA) [Mass fraction] 97 % Tondra Mapus Other [facility] Other 10-21-2021 12:00-0500 Systolic blood pressure 147 mm[Hg] Aldo Middleton Other [facility] Other 07-21-2021 15:45-0400 Body height 172.72 cm Morgan Kunz Other [facility] Other 07-21-2021 15:45-0400 Body mass index (BMI) [Ratio] 38.77 kg/m2 Morgan Kunz Other [facility] Other 07-21-2021 15:45-0400 Body weight 115.67 kg Morgan Kunz Other [facility] Other 12-14-2017 15:17-0500 Body height 170.18 cm MD Scarlet Johnson Work Phone: [facility] Encounters Encounter Date Encounter Type Care Provider Facility Start: 07-23-2025 ambulatory Araceli BERMUDEZ Facility :[facility] Start: 05-15-2025 ambulatory Haider Hickman Facility :[facility] Start: 11-06-2024 ambulatory Araceli BERMDUEZ Facility :[facility] Start: 09-24-2024 ambulatory [facility] Start: 07-17-2024 End: 07-17-2024 ambulatory Araceli BERMUDEZ Facility:[facility] Start: 07-03-2024 End: 07-03-2024 ambulatory HYACINTH D DOLCE Not Available Start: 07-01-2024 End: 07-01-2024 ambulatory MIHIR Blank APLING Not Available Start: 06-26-2024 End: 06-26-2024 ambulatory [facility] Start: 06-25-2024 End: 06-25-2024 ambulatory KAJAL Hemphill DOLCE Not Available Start: 06-19-2024 End: 06-19-2024 ambulatory HYACINTH D DOLCE Not Available Start: 06-18-2024 End: 06-18-2024 ambulatory ANDREA AGUILAR Not Available Start: 06-12-2024 End: 06-12-2024 ambulatory Kajal Freeman Facility[facility] Start: 06-12-2024 End: 06-12-2024 ambulatory MIHIR Blank APLING Not Available Start: 06-07-2024 End: 06-07-2024 [facility] Britney Rodriguez PhD Work Phone: Pain Recovery Comment on above: Adjustment disorder with depressed mood (Primary Dx); Complex regional pain syndrome type II of right lower limb; Chronic toe pain, right foot Start: 06-05-2024 End: 06-05-2024 ambulatory SELF REFERRAL Facility:[facility] Start: 05-27-2024 End: 05-27-2024 ambulatory MIHIR Blank APLING Not Available Start: 05-23-2024 ambulatory Chiqui chapa MD Work Phone: Neurology Pain Comment on above: taking memantine HCL Start: 05-22-2024 End: 05-22-2024 ambulatory DAVID ACOSTA Facility:[facility] Start: 05-13-2024 End: 05-13-2024 ambulatory Haider Rohit Kristofer Facility:[facility] Start: 05-09-2024 End: 05-09-2024 ambulatory ANDREA Nur JEFF Not Available Start: 05-07-2024 ambulatory Morgan Trinidad Therapist Work Phone: Pain Recovery Comment on above: next step, resources Start: 05-07-2024 E-mail encounter fro m caregiver Morgan Trinidad Therapist Work Phone: Pain Recovery Start: 05-06-2024 End: 05-06-2024 [facility] Morgan Trinidad Therapist Work Phone: Pain Recovery Comment on above: Adjustment disorder with depressed mood (Primary Dx); Complex regional pain syndrome type II of right lower limb; Chronic toe pain, right foot Start: 04-24-2024 End: 04-24-2024 ambulatory HERBERTH ARAUJO Facility:[facility] Start: 04-24-2024 End: 04-24-2024 Patient encounter procedure [...] Start: 04-23-2024 End: 04-23-2024 ambulatory Haider Hickman Facility[facility] Jocelyn silva Start: 04-03-2024 End: 04-03-2024 ambulatory HERBERTH ARAUJO Facility:[facility] Start: 03-26-2024 End: 03-26-2024 [facility]ulatory [facility] Start: 03-19-2024 Telephone encounter Herberth meyers MD, PhD Work Phone: Pain Management Comment on above: Nurse Triage Call Start: 03-08-2024 End: 03-08-2024 ambulatory Haider Hickman Facility:[facility] Start: 03-07-2024 End: 03-07-2024 ambulatory [facility] Start: 02-29-2024 End: 02-29-2024 ambulatory HERBERTH ARAUJO Facility:[facility] Start: 02-29-2024 End: 02-29-2024 Patient encounter procedure [...] Start: 02-05-2024 End: 02-05-2024 ambulatory FRANCOISE SINGLETARY Facility:[facility] Start: 02-05-2024 End: 02-05-2024 Patient encounter procedure Francoise Singletary MD Work Phone: Pain Management Comment on above: Chronic toe pain, ri ght foot (Primary Dx); Painful diabetic neuropathy (HCC); Class 3 severe obesity with serious comorbidity and body mass index (BMI) of 40.0 to 44.9 in adult, unspecified obesity type (HCC) Start: 01-24-2024 End: 01-24-2024 ambulatory Araceli BERMUDEZ Facility:[facility] Start: 01-22-2024 End: 01-22-2024 ambulatory MACY Hernandez VIDA Not Available Start: 01-04-2024 End: 01-04-2024 ambulatory Araceli BERMUDEZ Facility:[facility] Start: 01-03-2024 End: 01-03-2024 ambulatory MIHIR Blank AILIN Not Available Start: 12-29-2023 End: 12-29-2023 ambulatory Araceli BERMUDEZ Facility:[facility] Start: 12-26-2023 End: 12-26-2023 ambulatory Haider Hickman Facility:[facility] Start: 12-14-2023 End: 12-14-2023 ambulatory ANDREA AGUILAR Not Available Start: 12-04-2023 End: 12-05-2023 ambulatory Miguelangel Mac MD Facility:[facility] Start: 10-18-2023 End: 10-18-2023 ambulatory Araceli BERMUDEZ Facility: [facility] Start: 10-16-2023 End: 10-17-2023 ambulatory Miguelangel Mac MD Facility: [facility] Start: 10-05-2023 End: 10-05-2023 ambulatory ANDREA AGUIALR Not Available Start: 09-25-2023 End: 09-26-2023 ambulatory Miguelangel Mac MD Facility: [facility] Start: 09-20-2023 End: 09-20-2023 ambulatory Haider Hickman Facility:[facility] Jocelyn silva Start: 09-12-2023 End: 09-12-2023 ambulatory Aldo Middleton Other [facility] Other Start: 09-12-2023 Telephone encounter Aldo Middleton [facility] Endocrinology Start: 09-11-2023 (DM) Diabetes Danieldra Emi [facility] Start: 09-11-2023 End: 09-12-2023 ambulatory MD Scarlet Johnson Work Phone: [employer] Other Start: 09-11-2023 End: 09-11-2023 Discharged Recurring MD Scarlet Johnson Work Phone: [facility] Work Phone: Start: 09-11-2023 End: 09-11-2023 Patient encounter procedure MD Scarlet Johnson Work Phone: [facility] Work Phone: Start: 08-24-2023 End: 08-24-2023 Patient encounter procedure MD Scarlet Johnson Work Phone: [facility]-Ultrasound [facility] Start: 08-24-2023 End: 08-24-2023 ambulatory MD Scarlet Johnson Work Phone: [facility] Work Phone: Start: 08-24-2023 Office outpatient ne w 60 minutes Eligio Soni [facility] Vascular Surgery Start: 08-24-2023 End: 08-24-2023 Patient encounter procedure MD Scarlet Johnson Work Phone: [facility] Vascular Surgery Work Phone: Start: 08-21-2023 End: 08-21-2023 ambulatory Haider Hickman Facility:[facility] Start: 07-26-2023 End: 07-26-2023 ambulatory Haider Hickman Facility:[facility] Start: 06-19-2023 End: 06-20-2023 ambulatory Miguelangel Mac MD Facility:[facility] Start: 06-14-2023 End: 06-14-2023 ambulatory Tondra Juanitaus Other [employer] Other Start: 06-14-2023 Telephone encounter Tona Emi [facility] Start: 06-09-2023 End: 06-09-2023 ambulatory Carito West Other [facility] Other Start: 06-09-2023 Nursing evaluation o f patient and report Carito West [facility] Start: 06-09-2023 Registered Recurring MD Scarlet franks Work Phone: [facility] Work Phone: Start: 06-05-2023 End: 06-06-2023 ambulatory Miguelangel Mac MD Facility:[facility] Start: 05-31-2023 End: 05-31-2023 ambulatory Tondra Mapus Other [facility] Other Start: 05-31-2023 Telephone encounter Tondra Mapus [facility] Start: 05-22-2023 End: 05-23-2023 ambulatory Miguelangel Mac MD Facility:[facility] Start: 03-07-2023 Follow-up encounter Terry moreno [facility] Start: 03-07-2023 End: 03-08-2023 ambulatory Terry Kelley [employer] Other Start: 02-17-2023 End: 02-17-[address] JOVITA WOODARD . Facility: Start: 02-14-2023 (DM) Diabetes Tondra Juanitaus [facility] Start: 02-14-2023 End: 02-14-2023 ambulatory Tondra Mapus Other [facility] Other Start: 01-20-2023 ([facility] FU) [facility] F/ U Registerd Historic Preservationist Carito West [facility] Start: 01-20-2023 End: 01-20-2023 ambulatory Carito West Other [facility] Other Start: 01-05-2023 End: 01-05-2023 ambulatory Terry Kelley Other [facility] Other Start: 01-05-2023 Follow-up encounter Terry moreno [...] ambulatory DR TERRY KELLEY Facility:[facility] Start: 11-24-2022 ([facility] WMNI) [facility] Initial Provider Carito West [facility] Start: 11-24-2022 End: 11-24-2022 ambulatory Carito West Other [facility] Other Start: 11-22-2022 End: 11-22-2022 ambulatory Tondra Mapus Other [facility] Other Start: 11-22-2022 Nursing evaluation o f patient and report Tondra Mapus [facility] Start: 11-18-2022 End: 11-18-2022 ambulatory Terry Kelley Other [facility] Other Start: 11-18-2022 Nutrition therapy Terry Serrato [facility] Start: 11-08-2022 End: 11-09-[address] SCARLET JOHNSON . Facility:[facility] Start: 11-07-2022 (DM) Diabetes Tondra Mapus [facility] Start: 11-07-2022 End: 11-07-2022 ambulatory Tondra Mapus Other [facility] Other Start: 10-18-2022 (RD) Program Dir Carito West [facility] Start: 10-18-2022 End: 10-18-2022 ambulatory Carito West Other [facility] Other Start: 08-18-2022 End: 08-19-[address] BRITTNY MORALES Facility:[facility] Start: 2022 ([facility] DB FU) [facility] Diabetes F/U Carito West [facility] Start: 2022 End: 08-11-[address] ARACELI BERMUDEZ [employer] Other Start: 07-29-2022 End: 07-30-[address] SCARLET JOHNSON . Facility: Start: 07-27-2022 (DM) Diabetes Tondra Mapus [facility] Start: 07-27-2022 End: 07-27-2022 ambulatory Tondra Mapus Other [facility] Other Start: 06-08-2022 (Historic Preservationist) Historic Preservationist Carito Alston located within [facility] Start: 06-08-2022 End: 06-08-2022 ambulatory Carito West Other [facility] Other Start: 04-21-2022 (DM) Diabetes Tondra Mapus [facility] Start: 04-21-2022 End: 04-21-2022 ambulatory Tondra Mapus Other [facility] Other Start: 04-21-2022 Telephone encounter Tondra Mapus [facility] Start: 04-07-2022 End: 04-08-[address] SCARLET JOHNSON . Facility: Start: 10-21-2021 (DM) Diabetes Tondra Mapus [facility] Start: 10-21-2021 End: 10-21-2021 ambulatory Tondra Mapus Other [facility] Other Start: 07-21-2021 Office outpatient ne w 45 minutes Morgan Kunz [facility] Gastroenterology Procedures Date Procedure Procedure Detail Performing Clinician Start: 08-24-2023 Duplex scan of lower limb veins MD Scarlet Johnson Work Phone: Plan of Treatment Date Care Activity Detail Author Start: 08-14-2024 End: 08-14-2024 Patient encounter procedure 08/14/2024 10:00 AM EST Office Visit Neurology Pain [address] [place] [address] Chiqui Robles MD [address] [place], [place] [id number] 1 Month Follow Up Neurology Pain Comment on above: 1 Month Follow Up Start: 06-09-2024 Influenza vaccination C [facility] Start: 06-07-2024 End: 06-07-2024 ambulatory 06/07/2024 12:30 PM EDT [facility] [address] [place] [address] Britney Rodriguez, PhD [address] [place] [address] [facility] Comment on above: [facility] Start: 05-06-2024 End: 05-06-2024 ambulatory 05/06/2024 9:00 AM EDT [facility] [address] [place] [address] Morgan Trinidad, Therapist [address] [place] [address] PAIN PSYCH Pain Recovery Comment on above: PAIN PSYCH Start: 04-17-2024 End: 04-17-2024 Patient encounter procedure 04/17/2024 10:00 AM EDT Office Visit Pain Management [address] [place] [address] Eufemia Ortiz, PA-C [address] [place] [address] SUTURAL REMOVAL Pain Management Comment on above: SUTURAL REMOVAL Start: 04-03-2024 End: 04-03-2024 Admission to same day surgery center 04/03/2024 10:00 AM EDT - 04/03/2024 11:05 AM EDT Surgery Pain Management [address] [place] [address] Herberth Araujo MD, PhD [address] [place] [address] Right L4 and L5 DRG Trial Pain Management Comment on above: Right L4 and L5 DRG Trial Start: 04-03-2024 End: 04-03-2024 Prq impltj nstim electrode array epidural PERCUTANEOUS IMPLANT LEAD NEUROSTIM EPIDURAL TRIAL Chronic toe pain, right foot Complex regional pain syndrome type II of right lower limb 04/03/2024 10:00 AM EDT [facility] Start: 04-03-2024 Subsequent hospital visit by physician 04/03/2024 10:00 AM EDT Hospital Encounter Pain Management [address] [place] [address] Herberth Araujo MD, PhD [address] [place] [address] Chronic toe pain, right foot [M79.674, G89.29], Complex regional pain syndrome type II of right lower limb [G57.71] Pain Management Comment on above: Chronic toe pain, ri ght foot [M79.674, G89.29], Complex regional pain syndrome type II of right lower limb [G57.71] Start: 10-09-2023 Advance Directive Discussion Advance Directive Discussion [facility] Start: 10-09-2023 Behavioral Health Screening Behavioral Health Screening [facility] Start: 06-09-2023 Covid-19 Vaccine ( season) Covid-19 Vaccine ( season) [facility] Start: 2014 Pneumococcal Vaccine : 65+ (1 of 1 - PCV) Pneumococcal Vaccine: 65+ (1 of 1 - PCV) [facility] Start: 2009 RSV Vaccine (1 - 1-d ose 60+ series) RSV Vaccine (1 - 1-dose 60+ series) [facility] Start: 1999 Shingrix Vaccine (1 of 2) Shingrix V accine (1 of 2) [facility] Start: 1994 Diabetes Screening Diabetes Screenin g [facility] Start: 1994 Screening for malign ant neoplasm of colon [facility] Start: 1984 Lipid panel Lipid Screening [facility] Start: 1968 Urine microalbumin profile DTaP,Tdap,Td Vaccine (1 - Tdap) [facility] Start: 1967 Annual PCP Team [employer] hai Disease Visit Annual PCP Team Chronic Disease Visit [facility] Start: 1967 Anxiety Screening Anxiety Screening [facility] Start: 1967 Depression Screening Depression Scre ening [facility] Start: 1967 Hepatitis B surface antibody level LDL Cholesterol [facility] Start: 1967 Hepatitis C screening Hepatitis C Sc reening [facility] Start: 1959 Diabetic foot examination Diabetic F oot Exam [facility] Start: 1959 Glaucoma screening Dilated Retinal E xam [facility] Start: 1959 Hepatitis B screening Urine Al bumin:Creatinine Ratio [facility] Start: 1955 Pneumococcal Vaccine : 65+ (1 of 2 - PCV) Pneumococcal Vaccine: 65+ (1 of 2 - PCV) [facility] Start: 1954 Hemoglobin A1c measurement HbA1C [facility] Immunizations Immunization Date Immunization Notes Care Provider Margarita sunshine 12-30-2020 COVID-19 Vaccine Mod gino - Documentation Purposes Only Morgan Kunz Other [facility] 12-02-2020 COVID-19 Vaccine Mod gino - Documentation Purposes Only Morgan Kunz Other [facility] Payers Date Payer Category Payer Unknown 2017 Self-pay [id number] 2017 Unknown [id number] 2012 Medicare 1960 Medicare [id number] 2.1 [id number] 1959 Unknown [id number] 2. 16.840.1.674788.19 1949 Unknown [id number] 2.16.84 0.1.911731.3.579.2.593 1949 Unknown [id number] 2.16.84 0.1.647251.3.579.2.593 1949 Unknown [id number] 2.16.84 0.1.839518.3.579.2.593 1949 Unknown [id number] 2.16.84 0.1.264409.3.579.2.593 1949 Unknown [id number] 2.16.84 0.1.688958.3.579.2.593 1949 Unknown [id number] 2.16.84 0.1.989207.3.579.2.593 1949 Unknown [id number] 2.16.84 0.1.223431.3.579.2.593 1949 Unknown [id number] 2.16.84 0.1.424819.3.579.2.593 1949 Unknown [id number] 2.16.84 0.1.280520.3.579.2.593 1949 Unknown [id number] 2.16.84 0.1.588117.3.579.2.593 1949 Unknown [id number] 2.16.84 0.1.016670.3.579.2.593 1949 Unknown [id number] 2.16.84 0.1.840953.3.579.2.593 1949 Unknown [id number] 2.16. 840.1.747435.3.579.2.196 1949 Unknown [id number] 2.16. 840.1.475637.3.579.2.196 1949 Unknown [id number] 2.16. 840.1.779313.3.579.2.196 1949 Unknown [id number] 2.16. 840.1.669862.3.579.2. 1949 Unknown [id number] 2.16. 840.1.415671.3.579.2.196 1949 Unknown [id number] 2.16. 840.1.477445.3.579.2.196 1949 Unknown [id number] 2.16.84 0.1.554666.3.579.2.1258 1949 Unknown [id number] 2.16.84 0.1.127065.3.579.2.1258 1949 Unknown [id number] 2.16.84 0.1.981230.3.579.2.1258 1949 Unknown [id number] 2.16.84 0.1.348047.3.579.2.1258 1949 Unknown [id number] 2.16.84 0.1.636554.3.579.2.1258 1949 Unknown [id number] 2.16.84 0.1.127683.3.579.2.125 1949 Unknown [id number] 2.16.84 0.1.017531.3.579.2.125 1949 Unknown [id number] 2.16.84 0.1.225859.3.579.2.125 1949 Unknown [id number] 2.16.84 0.1.509348.3.579.2.1258 1949 Unknown [id number] 2.16.84 0.1.803003.3.579.2.125 1949 Unknown [id number] 2.16.84 0.1.542259.3.579.2.125 1949 Unknown [id number] 2.16.84 0.1.516803.3.579.2.1259 1949 Unknown [id number] 2.16.84 0.1.584466.3.579.2.1259 1949 Unknown [id number] 2.16.84 0.1.136529.3.579.2.1259 1949 Unknown [id number] 2.16.840 .1.759055.3.579.2.1258 1949 Unknown [id number] 2.16.8 40.1.274013.3.579.2. 1949 Unknown [id number] 2.16.8 40.1.221191.3.579.2. 1949 Unknown [id number] 2.16.8 40.1.031409.3.579.2. 1949 Unknown [id number] 2.16.8 40.1.708696.3.579.2. 1949 Unknown [id number] 2.16.8 40.1.124312.3.579.2. 1949 Unknown [id number] 2.16.8 40.1.829203.3.579.2. 1949 Unknown [id number] 2.16.8 40.1.279931.3.579.2. 1949 Unknown [id number] 2.16.8 40.1.679995.3.579.2. 1949 Unknown [id number] 2.16.8 40.1.964288.3.579.2. 1949 Unknown [id number] 2.16.8 40.1.416529.3.579.2. 1949 Unknown [id number] 2.16.8 40.1.432145.3.579.2. 1949 Unknown [id number] 2.16.8 40.1.839802.3.579.2.727 1949 Unknown [id number] 2.16.8 40.1.733110.3.579.2.727 1949 Unknown [id number] 2.16.8 40.1.002088.3.579.2.727 1949 Unknown [id number] 2.16.8 40.1.047004.3.579.2. 1949 Unknown [id number] 2.16.8 40.1.804908.3.579.2. 1949 Unknown [id number] 2.16.8 40.1.795617.3.579.2. 1949 Unknown [id number] 2.16.8 40.1.791749.3.579.2. 1949 Unknown [id number] 2.16.8 40.1.563926.3.579.2. 1949 Unknown [id number] 2.16.8 40.1.028098.3.579.2.7 1949 Unknown [id number] 2.16.8 40.1.545464.3.579.2. 1949 Unknown [id number] 2.16.8 40.1.358827.3.579.2.727 1949 Unknown [id number] 2.16.8 40.1.031025.3.579.2.72 Unknown [facility] [id number] Unknown [id number] 2.16.8 40.1.474663.3.579.2.531 Unknown [id number] 2.16.8 40.1.525126.3.579.2.531 Unknown [id number] 2.16.8 40.1.541091.3.579.2.531 Social History Date Type Detail Facility Unknown if ever smoked [employer] Other Start: 02-05-2024 End: 04-17-2024 Sex Assigned At [facility] Start: 1950 Sex Assigned At Male [facility] Start: 07-09-2018 End: 02-29-2024 Tobacco smoking status MDIS Never smoked tobacco (finding) [facility] Tobacco [place] [facility] Tobacco smoking consumption unknown [facility] Start: 02-05-2024 End: 04-17-2024 History of Social function [facility] National Score (1-100), lower number is lower risk 67 [facility] Start: 1950 Sex Assigned At Not on file C [facility] Start: 02-29-2024 Tobacco use and exposure Smokeless tobacco non-user [facility] Start: 02-29-2024 Alcohol intake Ex-drinker (finding) [facility] Medical Equipment Procedure Code Equipment Code Equipment Original Text Equipment Identifier Dates ESWL, one kidney STENT CONTOUR 4 .8FR X 22-30CM FDA Start: 06-07-2018 ESWL, one kidney STENT CONTOUR 4 .8FR X 22-30CM FDA Start: 06-07-2018 Start: 12-11-2017 Lead Axium Slimt ip 1mm 5mm Space 50mm Neurostimulator Front Load 4 [id number] Start: 04-03-2024 Clinical Notes 07-21-2021 to 07-17-2024 Britney Rodriguez, PhD - 06/07/2024 12:22 PM Chiqui Irwin MD - 04/24/2024 9:27 AM Parish Moscoso MD - 04/24/2024 9:02 AM EDTPatient InstructionsPatient Instructions Note Date & Type Note Facility 07-17-2024 Note Patient Education Nephrology Dietary Guidelines to Help [...] ? 8 oz (237 mL) of milk, vhfjebl-brfakrmuycmt-zehwi milk, and calcium-fortifiedfruit juice. Calcium-fortified means that [...] Spinach (cooked), rhubarb, beets, sweet potatoes, and Andorran chard. ? Peanuts. ? Potato chips, icelandic fries, and baked potatoes with skin on. ? Nuts and nut products. ? Chocolate. ? If you regularly take a diuretic medicine, make sure to eat at least 1 or 2 servings of fruits or vegetables that are high in potassium each day. These include: ? Avocado. ? Banana. ? Greenup, prune, carrot, or tomato juice. ? Baked [...] fish oil, or vitamin B6. ? Take vacl-yja-ezhabas and prescription medicines only as told by your health care provider. These include suppleme (more content not included)... [facility] 06-26-2024 Note Cardiovascular Medic [facility] SUBJECTIVE Chief Complaint Patient presents with [...] with lymphedema. He follows with endocrinology in [place]. He has MILLER - this is unchanged. [...] is currently at a weightloss program at [facility]. He is seeing the cafeteria table attendant. 01/23/2023 He is down about 10lbs since [...] Obesity Sleep apnea Type 2 diabetes mellitus ([facility]) Complex regional pain syndrome type II of right lower limb Coronary arteriosclerosis in [place] artery Current use of insulin ([facility]) Dietary counseling and surveillance Past Medical History: Diagnosis Date CAD (coronary artery disease) DM type 2 (diabetes mellitus, type 2) ([facility]) HLD (hyperlipidemia) HTN (hypertension) Neuropathy ULISES (obstructive [...] venlafaxine 37.5 mg (more content not included)... [facility] 06-26-2024 Note Patient here for 1 y ear follow up CAD, hypertension, and hyperlipidemia. Had lipid panel this past December. Had foot surgery last week. Denies chest pain, SOB, palpitations, and lightheadedness/syncope. 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 Review of Systems Cardiovascular: Positive for leg swelling (RLE). Musculoskeletal: Positive for joint pain. All other systems reviewed and are negative. [facility] 06-07-2024 History of Present illness Narrative [facility] for Comprehensive Pain Recovery [facility] Session I have communicated my name and active licensure. The patient's identity and physical location were verified at the time of this visit. Either the patient or their legal client services representative has been informed of the risks and benefits of -- and alternatives to -- treatment through virtual visit and consents to proceed with the session remotely. The patient e-signed the Informed Consent for Psychological Evaluation & Care Form, and the [facility] health care insurance benefits, fees for service, emergency procedures, and the limits of confidentiality that may pertain with any given case were discussed with the patient. The patient was given a copy of the consent form on [email or web address]. The patient consented to a virtual visit and their location was confirmed. Patient location: [facility] Patient Name: Dong Whitmore CC#: [id number] Date of service: June 07, 2024 Subjective: [...] additional pain management education Britney Rodriguez, PhD [phone] documented in this encounter [facility] 05-23-2024 Note Patient Education Infectious Disease [...] these instructions at home: Medicines ? Take bwpd-wab-ozlxwfu and prescription medicines only as told by [...] provider. Document Revised: 07/07/2022 Document Reviewed: 07/07/2022 [email or web address] Patient Education ? 2022 [email or web address]. [facility] 05-13-2024 Note Patient Education Endocrinology Correction Insulin [...] changing your diet, or holidays. ? New anhc-tkl-duacphc or prescription medicines. ? Illness, stress, or [...] sure you disc (more content not included)... [facility] 05-06-2024 Note O ID: [id number] Author: MORGAN TRINIDAD, Therapist Service: ? Author Type: Therapist Type: Progress Notes Filed: 05/07/2024 08:20 Note Text: THE [facility] for Comprehensive Pain Recovery Psychological Evaluation May 06, 2024 Dong Haim [facility]#: [id number] I have communicated my name and active licensure. The patient's identity and physical location were verified at the time of this visit. Either the patient or their legal client services representative has been informed of the risks and benefits of -- and alternatives to -- treatment through virtual visit and consents to proceed with the session remotely. The patient e-signed the Informed Consent for Psychological Evaluation AND Care Form, and the behavioral health care insurance benefits, fees for service, emergency procedures, and the limits of confidentiality that may pertain with any given case were discussed with the patient. The patient was given a copy of the consent form on [employer] The patient consented to a virtual visit and their location was confirmed. Patient location: [place], [place] CPT Code: [id number] Virtual Psych Diagnotic Eval Appointment Start: 9 AM This 73 year old retired for 15 years (he was having some medical problems, but they offered an early care home package that was attractive at the time) male lives with his in [place], [place]. 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 He was referred by Chiqui Robles MD for psychological evaluation in the context of chronic pain. This consultation was shared with the referral source via the [facility] electronic medical record. He believes the [...] needed. pioglitazone (ACT (more content not included)... [facility] 04-24-2024 Note HNO ID: [id number] Author: CHIQUI ROBLES MD Service: ? Author Type: Physician Type: Progress Notes Filed: 04/24/2024 11:26 Note Text: [facility] STAFF PHYSICIAN NOTE OF PERSONAL INVOLVEMENT IN CARE IMPRESSION: Complex regional pain syndrome Adjustment Disorder Tried multiple injections, procedures, surgeries. No benefit Tried SCS and recently DRG without success. Discussed ketamine PLAN: Ketamine infusions Consider scrambler therapy Psych psychology Memantine 5mg Psychotherapy Add-on Progress Note Due to medical condition and comorbid psychological and behavioral concerns - psychotherapy was utilized during the visit. Seby-co-guup time: 21943 (16-37 mins) actual time spend in psychotherapy [...] which included preparing to see the patient, lgjy-sj-dtck patient care, completing clinical documentation, performing a medically appropriate examination, and counseling and educating the patient/family/caregiver. As noted, the patient's clinical situation is complex and serious with significant comorbidity of pain and functional limitations. This requires higher levels of time, intensity, and expense with longitudinal care and support. STAFF PHYSICIAN:: Chiqui Robles MD DATE of SERVICE: 04/24/2024 [facility] 04-24-2024 History of Present illness Narrative [facility] STAFF PHYSICIAN NOTE OF PERSONAL INVOLVEMENT IN CARE IMPRESSION: Complex regional pain syndrome Adjustment Disorder Tried multiple injections, procedures, surgeries. No benefit Tried SCS and recently DRG without success. Discussed ketamine PLAN: Ketamine infusions Consider scrambler therapy Psych psychology Memantine 5mg Psychotherapy Add-on Progress Note Due to medical condition and comorbid psychological and behavioral concerns - psychotherapy was utilized during the visit. Sflx-oz-vsiv time: 63242 (16-37 mins) actual time spend in psychotherapy [...] which included preparing to see the patient, boyh-ys-yids patient care, completing clinical documentation, performing a medically appropriate examination, and counseling and educating the patient/family/caregiver. As noted, the patient's clinical situation is complex and serious with significant comorbidity of pain and functional limitations. This requires higher levels of time, intensity, and expense with longitudinal care and support. STAFF PHYSICIAN:: Chiqui Robles MD DATE of SERVICE: 04/24/2024 [facility] April 24, 2024 This is a face [...] Parish Tucker MD documented in this encounter [facility] 04-24-2024 Note HNO ID: [id number] Author: PARISH RIOS MD Service: ? Author Type: Resident Type: Progress Notes Filed: 04/24/2024 11:26 Note Text: [facility] April 24, 2024 This is a face [...] Memantine Pain psychology consult Parish Tucker MD [facility] 03-21-2024 Telephone encounter Note Spoke with patient and notified him of provider recommendations. Verbalized understanding. Emilee So RN [facility] 03-21-2024 Miscellaneous Notes Spoke with patient and notified him of provider recommendations. Verbalized understanding. Emilee So RN Ok per Dr Araujo to proceed with trial - still recommending to keep appt with ID Spoke with patient at request of computer processing scheduler as patient has questions about referral to infectious disease. Patient states that he spoke with his PCP, Dr. Hickman ([phone]) who spoke with Dr. Vega in Infectious disease at [facility]. Dr. Hickman ordered lab work at the request of Dr. Vega and told patient that everything is fine . Patient is asking if he still needs to see infectious disease as he cannot get an appointment with them until 04/01 (2 days before scheduled trial for DRG) Spoke with Nelli WALKER, in Dr. Hickman' office. She states that [...] Emilee So RN documented in this encounter [facility] 03-21-2024 Telephone encounter Note Ok per Dr Araujo to proceed with trial - still recommending to keep appt with ID [facility] Work Phone: 03-19-2024 Telephone encounter Note Spoke with patient at request of computer processing scheduler as patient has questions about referral to infectious disease. Patient states that he spoke with his PCP, Dr. Hickman ([phone]) who spoke with Dr. Vega in Infectious disease at [facility]. Dr. Hickman ordered lab work at the request of Dr. Vega and told patient that everything is fine . Patient is asking if he still needs to see infectious disease as he cannot get an appointment with them until 04/01 (2 days before scheduled trial for DRG) Spoke with Nelli WALKER, in Dr. Hickman' office. She states that labs were ordered and that patient was given referral for ID. She will fax over lab test results as they are not on EPIC. She will discuss with Dr. Hickman to see if he is able to expedite patient's appointment with infectious disease so that DRG trial may move forward as planned. Emilee So RN [facility] 03-15-2024 Note Microbiology PROCEDURE: Blood Culture Charcoal [R1] SOURCE: Blood BODY SITE: COLLECTED DATE/TIME: 03/08/2024 08:30 EDT RECEIVED DATE/TIME: 03/08/2024 09:02 EDT START DATE/TIME: 03/08/2024 09:02 EDT FREE TEXT SOURCE: michel Hickman MD, Haider Hickman MD, Haider Bee FINAL REPORTS Final Report [] Verified Date/Time: 03/15/2024 12:00 EDT No growth at 7 days. Performing Locations R1: This test was performed at: [facility], [address] [place] [address], [address] [place] [address], [facility] Comment on above: Performed By: #### 1 [id number] #### [facility] [address] [place] [id number] 03-15-2024 Note Microbiology PROCEDURE: Blood Culture Charcoal [...] Locations R1: This [facility] performed at: [facility], [address] [place] [address], [address] [place] [address], [facility] Comment on above: Performed By: #### 1 [id number] #### [facility] [address] [place] [id number] 02-29-2024 Instructions Senthil Giraldo MD - 02/29/2024 1:38 PM EDT - Right DRG trial - Obtain psychological evaluation report (patient reports he just had this done ~two months ago) and send to [facility] - ID consult - Rule out infectious risk with due to the dermatitis. - Follow up: Return to clinic for the above procedure documented in this encounter [facility] 02-29-2024 Note HNO ID: [id number] Author: HERBERTH ARAUJO MD, PhD Service: ? Author Type: Physician Type: Progress Notes Filed: 03/18/2024 19:05 Note Text: [facility] Pain Management Department New Patient Consultation Referring Physician: SELF Chief Complaint: Right third toe pain SUBJECTIVE: Dong Whitmore is a 73 year old male with a pertinent past medical history of diabetes who presents to The [facility]'s Pain Management Center for the evaluation of right third toe pain. 15-year history of right third toe pain. He notes that over this time the pain has become increasingly severe has caused him significant discomfort and suffering. He has been to many specialists in the [facility] area-over the course of the past [...] depression 10-14 Mo (more content not included)... [facility] 02-29-2024 History of Present illness Narrative Images from the original note were not included. [facility] Pain Management Department New Patient Consultation Referring Physician: SELF Chief Complaint: Right third toe pain SUBJECTIVE: Dong Whitmore is a 73 year old male with a pertinent past medical history of diabetes who presents to The [facility] Management [facility] for the evaluation of right third toe pain. 15-year history of right third toe pain. He notes that over this time the pain has become increasingly severe has caused him significant discomfort and suffering. He has been to many specialists in the [facility]-over the course of the past 15 years, [...] history of diabetes who presents to [facility] for the evaluation of right third toe pain. He describes a 15-year history of right third toe pain. He notes that over this time the pain has become increasingly severe has caused him significant discomfort and suffering. He has been to many specialists in the [facility] area-over the course of the past [...] done ~two months ago) and send to [facility] - ID consult [...] Araujo MD, PhD documented in this encounter [facility] 02-06-2024 Telephone encounter Note Called and spoke to patient. Gave him this message from Dr. Singletary: I'd suggest seeking an appointment with the following doctors who perform DRG implantation: Dr. Carlisle, Dr. Araujo, Dr. Dan, Dr. Cortés Patient voiced understanding. [facility] 02-06-2024 Miscellaneous Notes Called and spoke [...] giving him the number to schedule at [facility] to discuss DRG? I'd suggest seeking an appointment with the following doctors who perform DRG implantation: Dr. Carlisle, Dr. Araujo, Dr. Dan, Dr. Moo Mcwilliams and Dr. Kamara may do DRG - I'm not sure. Thanks Lela! ----- Message ----- From: Livia Lester PA-C Sent: 02/05/2024 2:07 PM EDT To: Francoise Singletary MD No one on this side of [facility] that I know of does DRG so, we also send to [facility] I would just have Lela call [...] I know who do DRG are at [facility]. How do we refer him there? From what I remember, Truman Melendez, Ni, and Moo do DRG - do you know of anyone else? documented in this encounter [facility] 02-06-2024 Telephone encounter Note ----- Message from Francoise Singletary MD sent at 02/05/2024 3:12 PM EDT ----- Do you mind calling him and giving him the number to schedule at [facility] to discuss DRG? I'd suggest seeking an appointment with the following doctors who perform DRG implantation: Dr. Carlisle, Dr. Araujo, Dr. Dan, Dr. Moo Mcwilliams and Dr. Kamara may do DRG - I'm not sure. Thanks Lela! ----- Message ----- From: Livia Lester PA-C Sent: 02/05/2024 2:07 PM EDT To: Francoise Singletary MD No one on this side of [facility] that I know of does DRG so, we also send to [facility] I would just have Lela call [...] I know who do DRG are at [facility]. How do we refer him there? From what I remember, Truman Melendez, Ni, and Moo do DRG - do you know of anyone else? [facility] 02-05-2024 Instructions Francoise Singletary MD - 02/05/2024 1:01 PM EDT Thank you for taking the time to come and see me today! Please schedule an appointment for: [facility] Consult Please follow up with [facility] Neurology and Podiatry Please send all of your Podiatry, Neurology, and Pain Management records to us I will refer you to a provider who performs DRG to discuss this Please come back to see me as needed documented in this encounter [facility] 02-05-2024 History of Present illness Narrative Images from the original note were not included. [facility] Pain Management Department Consultation Date: February [...] The patient has seen other pain providers. [facility] Neurology OV 02/01/22 Assessment and Plan 71 [...] has been to many specialists in the [facility] area-over the course of the past [...] outside records. Unfortunately during our appointment today, [facility] was down I was unable to review [...] I noted before, he appears today while [facility] was down, and I not have [...] will refer him to a doctor at [facility] for consideration of DRG and to discuss the risks, benefits, alternatives. Diagnostics/Referrals: -Chronic Pain Recovery Program referral Referral to [facility] podiatry, neurology for second opinions 2. [...] Marital Status: Unknown Medical Decision Making The [facility] EMR was reviewed during the visit including: Problem List, Past Medical History, Past Surgical History, Medications, Allergies, Encounters with other providers and associated notes, Imaging, Labs, and Care Everywhere for OS records Notes and tests identified as copied and pasted above were directly placed into the frame of this note and are pertinent to my medical decision making. OARRS: PDMP website checked and validated and is consistent with medication report. *Information in italics was copied from the shared EMR documented in this encounter [facility] 02-05-2024 Note HNO ID: [id number] Author: FRANCOISE SINGLETARY MD Service: ? Author Type: Physician Type: Progress Notes Filed: 02/05/2024 15:14 Note Text: [facility] Pain Management Department Consultation Date: February [...] The patient has seen other pain providers. [facility] Neurology OV 02/01/22 Assessment and Plan 71 [...] has been to many specialists in the [place] area-over (more content not included)... [facility] 01-01-2024 Note [id number] [facility] 09-11-2023 Evaluation note Encounter Date Diagnosis Assessment [...] 6.9% 2. Blood glucose levels according to [employer] 3 cgm download 08/29/23-09/11/23 : Avg glucose 154. >250-3%, >180-20%, 70-180-71%, <70-5%, <54-1%, GMI 7%. 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 Pt reports he did contact [employer] and rc'd replacement sensor. Reviewed with pt [...] see above Sep, Albuminuria (ICD-10 - R80.9) / m/a cr ratio 159 reviewed importance of glucose/bp control to prevent further nephropathy Sep, BMI 40.0-44.9, adult (ICD-10 - Z68.41) Heart healthy diet material was printed Sep, Current use of insulin (ICD-10 - Z79.4) [employer] Other 11-16-2023 Evaluation note* Encounter Date Diagnosis Assessment Notes Treatment Notes Treatment Clinical Notes Aug, Cellulitis of right lower extremity (ICD-10 - L03.115) I did thoroughly review all the studies from [place]. I do not have any images to [...] include weight loss exercise and compression therapy. [employer] Other 09-01-2023 Evaluation note* Encounter Date Diagnosis Assessment Notes Treatment Notes Treatment Clinical Notes Jun, Type 2 diabetes mellitus with diabetic chronic kidney disease (ICD-10 - E11.22) Dong and his came in today for [employer] Diabetes baylee 3 training and refresher on his [...] He was given a no cut Grif Level Vial Inspector to try and a brochure to buy them online. We discussed the Novolog pen and that he is to use it if his BG before a meal is greater than 150. He was able to dial the pen and knows how to put the pen needle on and deliver the dose. 30 minutes were spent educating the patient by Kamlesh Sparrow RN, [facility]. [employer] Other 05-30-2023 Evaluation note* Encounter Date Diagnosis [...] February, Metabolic syndrome X (ICD-10 - E88.81) [employer] Other 05-09-2023 Evaluation note* Encounter Date Diagnosis [...] last visit, continue with weight loss efforts [employer] Other 04-14-2023 Evaluation note* Encounter Date Diagnosis [...] the following goals: Add flavors to vegetables [employer] Other 03-30-2023 Evaluation note* Encounter Date Diagnosis [...] Dec, Metabolic syndrome X (ICD-10 - E88.81) [employer] Other 03-23-2023 NoteCARDIAC STRESS TEST Requesting Physician: [...] interpreted and reported nuclear myocardial perfusion imaging.[id number] Evaluation note* Encounter Date Diagnosis Assessment Notes [...] following goals: 1) Increase vegetables at dinner [employer] Other 02-14-2023 Evaluation note* Encounter Date Diagnosis [...] and his by Kamlesh Sparrow RN, [facility]. Reviewed cgm download 11/08/22-11/20/22: Avg glucose 171. >250-1%, >180-30%, 70-180-69%, <70-0%, <540%. CV 15..2%. 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 6. Prescriptions: Acarbose sent to [facility]. Sample baylee 2 cgm given today. [...] Baylee 2 sensor and an office owned, [employer]. His phone was not compatible with Baylee 2 or 3, or Dexcom G6. He previously wore the Baylee 14 day system and did not need training on applying the device. I did train him on the use of the reader. He was vgiven samples of Grif Wood Science Professor and Skin Tac to help keep the device in place. 45 minutes were spent educating the patient by Kamlesh Sparrow RN, [facility]. [facility] Other 01-10-2023 Evaluation note* Encounter Date Diagnosis [...] program2) Try roasted cronin peppers (recipe provided) [facility] Other 11-11-2022 NotePROCEDURE: XR FOOT RT MIN [...] Electronically authenticated by: BRITTNY MORALES Date: 2022-08-19 06:17[facility]11-02-2022 Evaluation note* Encounter Date Diagnosis Assessment [...] nuts or cheese + crackers -Only likes beninese cheese,-Recommended 15g or less for snacks; so [...] likes those-Increase vegetable intake-Vegetables: corn, peas, carrots [facility] Other 10-19-2022 Evaluation note* Encounter Date Diagnosis [...] referral to Dr. Kelley for weight management [employer] Other 08-31-2022 Evaluation note* Encounter Date Diagnosis [...] and his would cook it for him [facility] Other 07-14-2022 Evaluation note* Encounter Date Diagnosis [...] improved glycemia. Pt would likek referral to cafeteria table attendant. Note pt has intolerance to glp1 class [...] of glucose/bp control to prevent further nephropathy [facility] Other 01-13-2022 Evaluation note* Encounter Date Diagnosis [...] medication issues. 6. Prescriptions: Pioglitazone sent to [facility]. Oct, Hyperlipidemia, unspecified hyperlipidemia type (ICD-10 - [...] brochure given today. Recommend call if interested. [facility] Other 10-13-2021 Evaluation note* Encounter Date Diagnosis Assessment Notes Treatment Notes Treatment Clinical Notes Jul, SANTANA (nonalcoholic steatohepatitis) (ICD-10 - K75.81) Jul, Other [facility] INDICATED ABOVE F/U HERE PRN [facility] Other Evaluation noteNo InformationNortTrue Office Other Evaluation noteNo assessment information available [facility] Work Phone: [facility] note* Diagnosis Chronic toe pain, right foot- Primary 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, not stated as uncontrolled Class 3 severe obesity with serious comorbidity and body mass index (BMI) of 40.0 to 44.9 in adult, unspecified obesity type (HCC) documented in this encounter [facility] note* Diagnosis Chronic toe pain, right foot- [...] right lower [facility] Diagnosis Adjustment disorder with depressed mood- Primary Complex regional pain syndrome type II of right lower limb Chronic toe pain, right foot Class 3 severe obesity with serious comorbidity and body mass index (BMI) of 40.0 to 44.9 in adult, unspecified obesity type (HCC) documented in this encounter [facility] note* Diagnosis Adjustment disorder with depressed mood- Primary Complex regional pain syndrome type II of right lower limb Chronic toe pain, right foot [facility] Adjustment disorder with depressed mood- Primary Complex regional pain syndrome type II of right lower limb Chronic toe pain, right foot [facility] Narrative - Reported* Type Description Date [...] me tatarsal and partial right first metatarsal 2-19 Hospitalization History see above [facility] Other History general Narrative - Reported* Type [...] me tatarsal and partial right first metatarsal 19 Surgical History Foot Surgery 10/27/2021 Hospitalization History see above [facility] Other [employer] general Narrative - Reported* Type Description Date [...] me tatarsal and partial right first metatarsal 2-8-19 Surgical History Foot Surgery 10/27/2021 Hospitalization History see above [facility] Other Summary Purpose Family History No Family [...] Referral Specialty Diagnoses / Procedures Referred By Contac t Referred To Contact Diagnoses Complex regional pain syndrome type II of right lower limb Chronic toe pain, right foot Class 3 severe obesity with serious comorbidity and body mass index (BMI) of 40.0 to 44.9 in adult, unspecified obesity type (HCC) Procedures PROVIDER ORDERED FOLLOW UP OFFICE/OUTPATIENT [facility] 60 MINUTES Chiqui Robles MD [address] [place] [address] Referral ID Status Reason Start Date Expiration Date Visits Requested Visits Authorized [id number] Authorized PCP Requested Referral 06/25/2024 04/24/2025 1 1 Specialty Diagnoses / Procedures Referred By Contac t Referred To Contact Infectious Diseases Diagnoses Dermatitis of lower extremity Procedures CONSULT TO INFECTIOUS DISEASES OFFICE/OUTPATIENT [facility] 60 MINUTES Herberth Araujo MD, PhD [address] [place] [address] Referral ID Status Reason Start Date Expiration Date Visits Requested Visits Authorized [id number] Authorized PCP Requested Referral 02/29/2024 02/28/2025 1 1 Specialty Diagnoses / Procedures Referred By Contac t Referred To Contact Podiatry Diagnoses Chronic toe pain, right foot Painful diabetic neuropathy (HCC) Procedures CONSULT TO PODIATRY OFFICE/OUTPATIENT [facility] 60 MINUTES Francoise Singletary MD [address] [place] [address] Referral ID Status Reason Start Date Expiration Date Visits Requested Visits Authorized [id number] Authorized PCP Requested Referral 02/05/2024 02/04/2025 1 1 Specialty Diagnoses / Procedures Referred By Contac t Referred To Contact Neurology Diagnoses Chronic toe pain, right foot Painful diabetic neuropathy (HCC) Procedures CONSULT TO NEUROLOGY OFFICE/OUTPATIENT [facility] 60 MINUTES Francoise Singletary MD [address] [place] [address] Referral ID Status Reason Start Date Expiration Date Visits Requested Visits Authorized [id number] Authorized PCP Requested Referral 02/05/2024 02/04/2025 1 1 Specialty Diagnoses / Procedures Referred By Contac t Referred To Contact [facility] Diagnoses Chronic toe pain, right foot Painful diabetic neuropathy (HCC) Procedures CONSULT TO [facility] FOR PAIN RECOVERY (CHRONIC PAIN) OFFICE/OUTPATIENT [facility] 60 MINUTES Francoise Singletary MD [address] [id number] Referral ID Status Reason Start Date Expiration Date Visits Requested Visits Authorized [id number] Pending Review PCP Requested Referral 02/05/2024 02/04/2025 1 1 Additional Source Comments REASON FOR VISIT (unrecogniz ed section and content) Reason Comments Consult Rt foot Reason Comments Established Patient Medication Update Reason Comments Nurse Triage Call Reason Comments New Patient Specialty Diagnoses / Procedures Referred By Contac t Referred To Contact [facility] Diagnoses Complex regional pain syndrome type II of right lower limb Chronic toe pain, right foot Class 3 severe obesity with serious comorbidity and body mass index (BMI) of 40.0 to 44.9 in adult, unspecified obesity type (HCC) Procedures CONSULT TO [facility] (CHRONIC PAIN) OFFICE/OUTPATIENT [facility] 60 MINUTES Herberth Araujo MD, PhD [address] [place] [address] Referral ID Status Reason Start Date Expiration Date Visits Requested Visits Authorized [id number] Pending Review PCP Requested Referral 04/03/2024 04/03/2025 [...] DATE CREATED AUTHOR 02/20/2023 [facility] DATE CREATED AUTHOR AUTHOR'S ORGANIZ ATION 11/22/2023 [facility] DATE CREATED AUTHOR AUTHOR'S ORGANIZ ATION 12/15/2023 [facility] DATE CREATED AUTHOR AUTHOR'S ORGANIZ ATION 03/09/2024 [facility] DATE CREATED AUTHOR AUTHOR'S ORGANIZ ATION 03/16/2024 [facility] DATE CREATED AUTHOR AUTHOR'S ORGANIZ ATION 05/09/2024 [facility] DATE CREATED AUTHOR AUTHOR'S ORGANIZ ATION 06/28/2024 [facility] DATE CREATED AUTHOR AUTHOR'S ORGANIZ ATION 07/05/2024 [facility] DATE CREATED AUTHOR AUTHOR'S ORGANIZ ATION 07/19/2024 [facility] Care Teams (unrecognized sec tion and content) Team Status: Active Member Role Status Dates Scarlet Johnson MD Primary Care Provider Active Team Status: Inactive Member Role Status Dates Scarlet Johnson MD Primary Care Provider Active Eligio Soin MD Attending Provider Active Team Status: Active [...] September 11, 2023 End: September 11, 2023 Soapstoner Relationship Specialty Start Date End Date Miguelangel Mac MD [address] [facility] [address] [place] [address] Referring Pain Management 01/29/24 Soapstoner Relationship Specialty Start Date End Date Miguelangel Mac MD [address] [place] [address] Referring Pain Management 01/29/24 Soapstoner Relationship Specialty Start Date End Date Miguelangel Mac MD [address] [place] [address], [place] [address] Referring Pain Management 01/29/24 Soapstoner Relationship Specialty Start Date End Date Miguelangel Mac MD [address] [place] [address], [place] [address] Referring Pain Management 01/29/24 Soapstoner Relationship Specialty Start Date End Date Haider Hickman MD [address] [facility] [place] [address] PCP - General Family Medicine 03/26/24 Miguelangel Mac MD [address] [place] [address], [place] [address] Referring Pain Management 01/29/24 Soapstoner Relationship Specialty Start Date End Date Haider Hickman MD [address] [facility] [address] PCP - General Family Medicine 03/26/24 Miguelangel Mac MD [address] [place] [address], [place] [address] Referring Pain Management 01/29/24 Soapstoner Relationship Specialty Start Date End Date Haider Hickman MD [address] [place] [address] PCP - General Family Medicine 03/26/24 Miguealngel Mac MD [address] [place] [address] Referring Pain Management 01/29/24 Soapstoner Relationship Specialty Start Date End Date Haider Hickman MD [address] [place], [place] [id number] PCP - General Family Medicine 03/26/24 Miguelangel Mac MD [address] [place] [address] Referring Pain Management 01/29/24 Soapstoner Relationship Specialty Start Date End Date Haider Hickman MD [address] [place] [address] PCP - General Family Medicine 03/26/24 Miguelangel Mac MD [address] [place] [address] Referring Pain Management 01/29/24 Goals (unrecognized section [...] or prosecute any alcohol or drug abuse patient.[facility] the event this information is protected by the Federal Confidentiality of Alcohol and Drug Abuse Patient Records regulations: The Federal rules restrict any use of the information to criminally investigate or prosecute any alcohol or drug abuse patient.[facility] the event this information is protected by the Federal Confidentiality of Alcohol and Drug Abuse Patient Records regulations: The Federal rules restrict any use of the information to criminally investigate or prosecute any alcohol or drug abuse patient.[facility] the event this information is protected by the Federal Confidentiality of Alcohol and Drug Abuse Patient Records regulations: The Federal rules restrict any use of the information to criminally investigate or prosecute any alcohol or drug abuse patient.[facility] the event this information is protected by the Federal Confidentiality of Alcohol and Drug Abuse Patient Records regulations: The Federal rules restrict any use of the information to criminally investigate or prosecute any alcohol or drug abuse patient.[facility] the event this information is protected by the Federal Confidentiality of Alcohol and Drug Abuse Patient Records regulations: The Federal rules restrict any use of the information to criminally investigate or prosecute any alcohol or drug abuse patient.[facility] the event this information is protected by the Federal Confidentiality of Alcohol and Drug Abuse Patient Records regulations: The Federal rules restrict any use of the information to criminally investigate or prosecute any alcohol or drug abuse patient.[facility] the event this information is protected by the Federal Confidentiality of Alcohol and Drug Abuse Patient Records regulations: The Federal rules restrict any use of the information to criminally investigate or prosecute any alcohol or drug abuse patient.[facility] the event this information is protected by the Federal Confidentiality of Alcohol and Drug Abuse Patient Records regulations: The Federal rules restrict any use of the information to criminally investigate or prosecute any alcohol or drug abuse patient.[facility] FOR RECORDS PERTAINING TO PATIENTS WHO [...] BE BASED ON THE PRIMARY CLINICAL RECORDS. [facility] [employer] [facility]. provides no warranty or guarantee of the accuracy or completeness of information in this document.
== END 2024-07-19 11:17 | disposition home or self-care (01) ==
LOC: LAB 11:17
PROVIDERS: PCP Family Medicine; Visit Provider Urology
DX: N40.1 Benign prostatic hyperplasia with lower urinary tract symptoms (principal)
CPT/HCPCS: 36415; 84153

== ENCOUNTER 2024-09-02 14:39 | Outpatient (OUT) | payer MEDICARE, OTHER, SELFPAY ==
--- OUTSIDE RECORDS SUMMARY | 2024-09-02 15:02 | XMS_ITS | CCD ---
Author Organization [facility] Care Team Providers Care Civil Engineering Intern Name Role Phone Claudioaminta Morgan Unavailable Aldo Middleton Unavailable Carito West Unavailable Terry Kelley Unavailable DR TERRY KELLEY Consulting Unavailable JOHNSON ., DR SCARLET [place] [facility] Unavailable RIGOBERTO, DR STEWART Attending Unavailable RIGOBERTO, DR STEWART Admitting Unavailable SU, DR MORGAN Miranda Consulting Unavailable JOHNSON ., DR SCARLET [place] [facility] Unavailable BASSAM AGUILAR Attending Unavailable BASSAM AGUILAR Admitting Unavailable BASSAM AGUILAR Consulting Unavailable ANDREW, DR BRITTNY Hemphill [...] Unavailable AIDAN, DR ARACELI Treadwell Admitting Unavailable DR MORGAN ROJO V Consulting Unavailable ANRDEW, DR BRITTNY Hemphill Consulting Unavailable JOHNSON ., [...] DR HUSSEIN Consulting Unavailable PAY ., DR HSUSEIN Attending Unavailable PAY ., DR HUSSEIN Admitting Unavailable JOHNSON ., DR SCARLET [place] [facility] Unavailable JOHNSON ., DR SCARLET [place] [facility] Unavailable JOHNSON ., DR SCARLET [place] Attending Unavailable JOHNSON ., DR SCARLET [place] Admitting Unavailable Eligio Soni Unavailable MD Daniel Everett Attending Provider MD Scarlet Johnson Primary Care Provider [phone] MD Eligio Soni Attending Provider MD Scarlet [...] Andrius Vlluvia Attending Unavailable Bubba SCHUSTER, Andrius Vlluvia Attending Unavailable Gidelfin SCHUSTER, Andrius Vlluvia Attending Unavailable Bubba SCHUSTER, Andrius Vytsandy Attending Unavailable Bubba SCHUSTER, Andrius Vytautmariann Attending Unavailable Gidelfin SCHUSTER, Andrius Unavailable [phone] Haider Hickman Attending Unavailable Haider Hickman Admitting Unavailable Haider Hickman MD Primary Care Provider Haider Hickman Attending Unavailable Haider Hickman Attending Unavailable Haider Hickman Attending Unavailable Haider Hickman Attending Unavailable Ross, Haider E. Attending Unavailable COOK, Araceli P Referring Unavailable COOK, Araceli P Admitting Unavailable COOK, Araceli P Attending Unavailable COOK, Araceli P Referring Unavailable COOK, Araceli P Admitting Unavailable COOK, Araceli P Attending Unavailable Haider Hickman Admitting Unavailable Haider Hickman Attending Unavailable Haider Hickman Admitting Unavailable Haider Hickman Attending Unavailable COOK, Araceli P Referring Unavailable COOK, Araceli P Admitting Unavailable COOK, Araceli P Attending Unavailable COOK, Araceli P Attending Unavailable COOK, Araceli P Attending Unavailable COOK, Araceli P Attending Unavailable Haider Hickman Attending Unavailable Haider Hickman Attending Unavailable Haider Hickman MD Primary Care Provider [phone] ESSENCE WASHBURN Attending Unavailable ELAINE FISHER Attending Unavailable MARY APARICIO Attending Unavailable MD Haider Hickman Attending Unavailable DAVID ACOSTA Attending Unavailable MD Haider Hickman Attending Unavailable MD Haider Hickman Attending Unavailable MD Haider Hickman Attending Unavailable MD Haider Hickman Referring Unavailable MD Haider Hickman Attending Unavailable Araceli BERMUDEZ Attending Unavailable Yoon Camm Kanchan Attending Unavailable REFERRAL, SELF Referring Unavailable Kajal Cam R Attending Unavailable Kajal Cam R Attending Unavailable MD Haider Hickman Attending Unavailable MD Haider Hickman Admitting Unavailable MORGAN TRINIDAD Attending Unavailable MARYLOU HAIDER E Primary Care Unavailable MIJASINCERE, DESIMIR Referring Unavailable MARYLOU HAIDER E Primary Care Unavailable HERBERTH ARAUOJ A Referring Unavailable TRAVIS, DESIMIR Attending Unavailable HERBERTH ARAUJO Attending Unavailable FRANCOISE SINGLETARY Attending Unavailable HAIDER HICKMAN E Primary Care Unavailable MIJATOVIC, DESIMIR Referring Unavailable MIJATOVIC, DESIMIR Attending Unavailable HERBERTH ARAUJO A Attending Unavailable HERBERTH ARAUJO A Admitting Unavailable MORGAN TRINIDAD Referring Unavailable HAIDER HICKMAN E Primary Care Unavailable BRITNEY HYDE Attending Unavailable BASSAM AGUILAR Attending Unavailable MATTHEW MAY Attending Unavailable AHIDER HICKMAN Referring Unavailable MACY MCPHERSON Attending Unavailable MIHIR PARISI Referring Unavailable MIHIR PARISI Attending Unavailable BASSAM AGUILAR Attending Unavailable BASSAM AGUILAR Attending Unavailable DOLSHYAM BOATENG Attending Unavailable DOLCE, SHYAM Stoner Attending Unavailable MARIA G, ARLEN Nur Attending Unavailable DOLKILO, SHYAM Stoner Attending Unavailable APLING, MIHIR Blank Attending Unavailable KAJAL CAM Attending Unavailable SHYAM CAM Referring Unavailable BROWN, BASSAM Nur Attending Unavailable APLING, MIHIR Blank Attending Unavailable APLING, MIHIR Blank Attending Unavailable BROWN, BASSAM Nur Attending Unavailable BROWNBASSAM Attending Unavailable KHAI HEARD Attending Unavailable MARIA G, ARLEN Nur Referring Unavailable SHYAM CAM Attending Unavailable Allergies Allergy Classification Reported Allergen(s) Allergy Type Date of Onset Reaction(s) Facility (20 sources) Cefuroxime; Translations: [cefuroxime] Drug Allergy 06-09-20 Unknown [facility] (20 sources) celecoxib; Translations: [CELECOXIB] Drug Allergy 06-09-20 Unknown [facility] (20 sources) Diflunisal; Translations: [DIFLUNISAL] Drug Allergy 06-09-20 21 Unknown [facility] (20 sources) dulaglutide Drug Allergy 09-11-20 23 Unknown, g/i [facility] (20 sources) Ibuprofen Drug Allergy Unknown [facility] (20 sources) liraglutide; Translations: [LIRAGLUTIDE] Drug Allergy 11-25-19 23 stomach upset [facility] (20 sources) metFORMIN; Translations: [metFORMIN] Drug Allergy 06-09-20 21 stomach upset [facility] (20 sources) Naproxen; Translations: [NAPROXEN] Drug Allergy 06-09-20 Unknown [facility] (20 sources) Sulindac; Translations: [Clinoril] Drug Allergy 07-10-20 15 Unknown [facility] (1 source) Cefuroxime Drug Allergy 07-13-20 16 [facility] (3 sources) celecoxib; Translations: [CeleBREX] Drug Allergy 07-10-20 15 [facility] (3 sources) liraglutide; Translations: [Victoza] Drug Allergy [facility] (1 source) metFORMIN Drug Allergy 06-15-20 17 [facility] (3 sources) Naproxen; Translations: [Naprosyn] Drug Allergy 07-10-20 15 [facility] (3 sources) NSAIDs; Translations: [NSAIDS (NON-STEROIDAL ANTI-INFLAMMATORY DRUG)] Drug allergy (disorder) 07-10-20 15 [facility] (3 sources) Povidone-Iodine; Translations: [Dolobid] Drug Allergy 07-10-20 15 [facility] (20 sources) Cephalosporins (Antibiotic); Translations: [Cephalosporins] Propensity to adverse reactions 05-29-20 Unknown Reaction [facility] (18 sources) Ibuprofen; Translations: [ibuprofen] Drug Allergy 09-11-20 Unknown [facility] (20 sources) Sulindac; Translations: [sulindac] Drug Allergy 06-09-20 Unknown [facility] (1 source) Cefuroxime Drug Allergy 09-11-20 [facility] (1 source) celecoxib Drug Allergy 09-11-20 [facility] (1 source) Diflunisal Drug Allergy 09-11-20 [facility] (1 source) dulaglutide Drug Allergy 09-11-20 [facility] (1 source) liraglutide Drug Allergy 09-11-20 [facility] (1 source) metFORMIN Drug Allergy 09-11-20 [facility] (1 source) Naproxen Drug Allergy 09-11-20 [facility] (12 sources) Non-steroidal anti-inflammatory agent Drug Intolerance 02-05-20 24 GI Upset [facility] (2 sources) Cefuroxime; Translations: [Cefuroxime Axetil] Drug Allergy [facility] Rep[facility] (2 sources) dulaglutide; Translations: [Trulicity] Drug Allergy [facility] (2 sources) Niacin; Translations: [niacin] Drug Allergy [facility] (18 sources) NSAIDs; Translations: [NSAIDs] Propensity to adverse reactions (disorder) 07-23-20 Other [facility] Repository (2 sources) rofecoxib; Translations: [Vioxx] Drug Allergy [facility] (17 sources) celecoxib Drug Allergy 05-18-20 Unknown [facility] (17 sources) Diflunisal Drug Allergy 06-09-20 Unknown [facility] (17 sources) dulaglutide Drug Allergy 05-18-20 Unknown [facility] (17 sources) liraglutide Drug Allergy 05-18-20 Unknown [facility] (17 sources) metFORMIN Drug Allergy 05-18-20 Unknown [facility] (18 sources) rofecoxib; Translations: [ROFECOXIB] Drug Allergy 06-09-20 Unknown [facility] Medications Current Medications Medication Drug Class(es) Dates Sig (Normalized) Sig (Original) acarbose 50 mg oral tablet (20 sources) alpha-Glucosidase Inhibitor Start: 11-07-2022 acarbose (Precose) 50 MG tablet Take 50 mg by mouth in the morning and 50 mg at noon and 50 mg in the evening. Take with meals. 05/07/2023 Active Start: 05-29-2018 Acarbose Activ e TABLET May 28, 2018 11:00pm take 1 tablet by jatin th three times daily Acarbose 25 mg 1 Tablet Oral tid Active acetaminophen 300 mg / codeine phosphate 30 mg oral tablet (17 sources) Opioid Agonist Start: 05-25-2024 acetaminophen-codeine (Tylenol w/ Codeine #3) 300-30 MG tablet 05/25/2024 Active acetaminophen 325 mg / HYDROcodone bitartrate 5 mg oral tablet (2 sources) Opioid Agonist Start: 06-07-2018 take 1 tablet by mouth every four to six hours Hydrocodone-Acetaminophen Active 1 TAB PO EVERY 4-6 HOURS June 07, 2018 aspirin 81 mg delayed release oral tablet (20 sources) Platelet Aggregation Inhibitor, Nonsteroidal Anti-inflammatory Drug take 1 tablet by mouth once daily aspirin 81 MG EC tablet Take 81 mg by mouth Daily Active take 1 tablet by jatin th every twenty-four hours Aspirin 81 MG 1 Tablet Orally Daily Active 24 hr buPROPion hydrochloride 300 mg extended release oral tablet (20 sources) Aminoketone Start: 05-06-2024 take 1 tablet by mouth once daily buPROPion XL (Wellbutrin XL) 300 MG 24 hr tablet Take 300 mg by mouth Daily 05/06/2024 Active Start: 02-05-2024 buPROPion XL ( WELLBUTRIN XL) 300 mg 24 hr tablet 02/05/2024 Active Start: 04-15-2023 take 1 tablet by jatin th every twelve hours in the morning buPROPion SR (Wellbutrin SR) 150 MG 12 hr tablet Take 150 mg by mouth in the morning. 04/15/2023 Active Start: 05-29-2018 Bupropion Hcl Active May 28, 2018 11:00pm Calcium + D3 600-200 MG-UNIT (20 sources) take 1 tablet by mouth once daily Calcium + D3 600-200 MG-UNIT 1 tablet with a meal Orally Once a day Active calcium carbonate 1500 mg / cholecalciferol 200 unt oral tablet (20 sources) Vitamin D Calcium Carb-Cholecalciferol 600-5 MG-MCG tablet Calcium 600 Active calcium carbonat e 600 mg-cholecalciferol 200 units 600 mg-5 mcg (200 unit) tab Calcium 600 Active canagliflozin 100 mg oral tablet (2 [...] dairy products, calcium, zinc, and/or iron-containing products clindamycin 300 mg oral capsule (17 sources) Lincosamide Antibacterial Start: 05-22-2024 take 1 capsule by mouth in the morning clindamycin (Cleocin) 300 MG capsule Take 300 mg by mouth in the morning and 300 mg before bedtime. 05/22/2024 Active Docosahexaenoate (12 sources) take 1200 mg by mouth twice daily DOCOSAHEXAENOIC ACID ORAL Fish Oil 1200mg BID Active take 1200 mg by mouth twice zheng y DOCOSAHEXAENOIC ACID ORAL Fish Oil 1200mg BID 0 Active fish oil/borage/flax/om3,6,9 1 (FISH,BORA,FLAX OILS-OM3,6,9NO1 ORAL) (12 sources) fish oil/borage/ flax/om3,6,9 1 (FISH,BORA,FLAX OILS-OM3,6,9NO1 [...] pen injector (1 source) Insulin Analog Start: 05-31-20 HumaLOG KwikPen 100 UNIT/ML 1:50 corrective scale ac tid Subcutaneous as directed for 30 days (expect up to 20 units/day) May, Active LORazepam 0.5 mg oral tablet (17 sources) Benzodiazepine Start: 07-10-20 take 1 tablet by mouth every hour LORazepam (Ativan) 0.5 MG tablet Indications: Internal derangement of left shoulder Take 1 tablet (0.5 mg) by mouth See administration instructions for 1 dose 1 tablet by mouth 1 hour prior to MRI, must have someone drive you to the appt and home from the appt 1 tablet 07/10/2024 Active losartan potassium 50 mg oral tablet (20 sources) Angiotensin 2 Receptor Nathaly Start: 02-01-20 take 1.5 tablets by mouth once losartan (COZAAR) 50 mg tablet Take 1.5 tablets by mouth every afternoon. 02/01/2024 Active Start: 03-12-2023 take 2 tablets by mo [facility] at bedtime losartan (Cozaar) 50 MG tablet Take 100 mg by mouth at bedtime 03/12/2023 Active Start: 03-12-2023 take 1 tablet by jatin at bedtime losartan (Cozaar) 50 MG tablet Take 50 mg by mouth at bedtime. 03/12/2023 Active take 1.5 mg by mouth once daily Losartan Potassium 50 MG 1.5 mg Orally Once a day Active take 1 tablet by jatin th every twenty-four hours Losartan Potassium 50 MG 1 tablet Orally Once a day [facility] mem[facility] hydrochloride 10 mg oral tablet (20 sources) B-xzjqlq-C-aspartate Receptor Antagonist Start: 05-31-2024 End: 07-22-2024 take 1 tablet by mouth once daily memantine (Namenda) 10 MG tablet Take 10 mg by mouth Daily 05/31/2024 Active Start: 04-24-2024 take 1 tablet by jatin th once daily memantine (NAMENDA) 5 mg tablet Take 1 tablet by mouth once daily. 30 tablet 3 04/24/2024 Active 24 hr metoprolol succinate 50 mg extended release oral tablet (20 sources) beta-Adrenergic Nathaly Start: 12-26-2023 take 1 tablet by mouth every twenty-four hours in the morning metoprolol succinate XL (Toprol-XL) 50 MG 24 hr tablet Take 50 mg by mouth in the morning and 50 mg before bedtime. 12/26/2023 Active Start: 12-26-2023 take 1 tablet by jatin th every twelve hours metoprolol succinate ER (TOPROL XL) 50 mg 24 hr tablet Take 1 tablet by mouth every 12 hours. 12/26/2023 Active Start: 05-29-2018 take 1 tablet by jatin th in the morning metoprolol tartrate (Lopressor) 50 MG tablet Take 50 mg by mouth in the morning and 50 mg before bedtime. 03/09/2023 Active take 1 tablet by jatin th every twenty-four hours Metoprolol Tartrate 100 MG 1 tablet with food Orally Daily Active take 1 tablet by jatin th every twenty-four hours Metoprolol Tartrate 50 MG 1 Tablet Orally Daily Active Nitro Sublingual 0.4 (20 sources) Nitro Sublingual 0.4 Sublingual As Directed Active nitroglycerin 0.4 mg sublingual tablet (20 sources) Nitrate Vasodilator Start: nitroglycerin (Nitrostat) 0.[address] 1 TABLET UNDER TONGUE EVERY 5 MINS, UP TO 3 DOSES NEEDED FOR CHEST PAIN 09/20/2023 Active [place] 3-Hws-Ixk-Fish Oil (Fish Oil) 1,000 mg (120 mg-180 mg) Capsule (2 sources) Start: [place] 1-Mwr-Pcc-Fish Oil (Fish Oil) 1,000 mg (120 mg-180 [...] Peroxisome Proliferator Receptor gamma Agonist, Thiazolidinedione Start: 023 take 1 tablet by mouth in the morning pioglitazone (Actos) 30 MG tablet Take 30 mg by mouth in the morning. 05/09/2023 Active take 2 tablets by mo uth every twenty-four hours Pioglitazone HCl 15 MG 2 tablets Orally Once a day for 90 days Active take 1 tablet by jatin th every twenty-four hours Pioglitazone HCl 15 MG 1 tablet Orally Once a day for 90 day(s) Active pregabalin 75 mg oral capsule (14 sources) Start: 08-01-2024 take 1 capsule by mouth in the morning pregabalin (Lyrica) 75 MG capsule Take 75 mg by mouth in the morning and 75 mg before bedtime. 08/01/2024 Active Start: 11-17-2022 Pregabalin 100 MG 1 capsule Orally bid Q 10 DAYS Nov, Active simvastatin 40 mg oral tablet (20 sources) HMG-CoA Reductase Inhibitor Start: 02-27-2023 take 1 tablet by mouth at bedtime simvastatin (Zocor) 40 MG tablet Take 40 mg by mouth at bedtime. 02/27/2023 Active SITagliptin 100 mg oral tablet (20 sources) Dipeptidyl Peptidase 4 Inhibitor Start: 02-27-2023 take 1 tablet by mouth in the morning Januvia 100 MG tablet Take 100 mg by mouth in the morning. 02/27/2023 Active Start: 05-29-2018 Sitagliptin Ph osphate (Januvia) 25 mg Tablet Active TABLET May 28, 2018 11:00pm take 0.5 tablet by m outh once daily Januvia 100 MG 1/2 tablet Orally Once a day Active sodium bicarb 650 mg (20 sources) take 2 tablets by mouth three times daily sodium bicarb 650 mg 2 tablets orally tid Active sodium bicarbonate 650 mg oral tablet (20 sources) Start: take 2 tablets by mouth in the morning, then take 2 tablets by mouth in the evening, then take 2 tablets by mouth at bedtime sodium bicarbonate 650 MG tablet Take 1,300 mg by mouth in the morning and 1,300 mg in the evening and 1,300 mg before bedtime. 09/21/2023 Active tiZANidine 4 mg oral tablet (20 sources) Central alpha-2 Adrenergic Agonist Start: 3 take 1 tablet by mouth at bedtime tiZANidine (Zanaflex) 4 MG tablet Take 4 mg by mouth at bedtime. 04/15/2023 Active take 1 tablet by mouth once zheng y tiZANidine HCl 4 MG 1 tab Orally daily Active tiZANidine HCl A ctive traMADol hydrochloride 50 mg oral tablet (19 sources) Opioid Agonist Start: 06-19-2024 take 1 tablet by mouth every six hours for pain traMADol (Ultram) 50 MG tablet Indications: Pain Take 1 tablet (50 mg) by mouth every 6 (six) hours if needed for severe pain or moderate pain 20 tablet 06/19/2024 Active Start: 05-29-2018 Tramadol Activ e TABLET May 28, 2018 11:00pm triamcinolone acetonide 0.001 mg/mg topical ointment (17 sources) Corticosteroid Start: 01-22-2024 triamcinolone (Kenalog) 0.1 % ointment Indications: Other specified dermatitis Apply topically 2 (two) times a day as needed (Rash) Avoid face, armpits and groin. 60 g 11 01/22/2024 Active venlafaxine 75 mg oral tablet (20 sources) Serotonin and Norepinephrine Reuptake Inhibitor Start: 08-26-2024 venlafaxine (Effexor ) 75 MG tablet 08/26/2024 Active Start: 03-14-2023 take 1 tablet by jatin th in the morning venlafaxine (Effexor) 37.5 MG tablet Take 37.5 mg by mouth in the morning and 37.5 mg before bedtime. 03/14/2023 Active Start: 05-29-2018 Venlafaxine Ac tive TABLET [...] Orally once a day Active FreeStyle [place] - (7 sources) FreeStyle [place] - use with baylee sensor SQ daily for 365 days has but not using Not-Taking FreeStyle Baylee Sensor Syste m - (7 sources) FreeStyle Baylee Sensor System - use with baylee reader SQ change every 10 days for 90 days has but not usint Not-Taking Problems Active Problems Problem Classification Problem Date Documented Da te Episodic/Chronic Acquired foot deformities (4 sources) Acquired deformity of toe of right foot; Translations: [Acquired deformities of toe(s), unspecified, right foot] 07-24-2024 Episodic Adjustment disorders (3 sources) Adjustment disorder with depressed mood; Translations: [Adjustment disorder with depressed mood] 04-24-2024 Chronic Administrative/social admission (6 sources) Dietary counseling and surveillance Onset: 2 Resolved: 2 Episodic Allergic reactions (1 source) Eczema of lower limb; Translations: [Dermatitis, unspecified] 02-29-2024 Episodic Congestive heart failure; nonhypertensive (1 source) Unspecified systolic (congestive) heart failure; Translations: [UNSPECIFIED SYSTOLIC HEART FAILURE] Onset: 3 Chronic Coronary atherosclerosis and other heart disease (20 sources) Coronary arteriosclerosis; Translations: [Atherosclerotic heart disease of [place] coronary artery without angina pectoris] Onset: 9 Chronic Diabetes mellitus with complications (20 sources) Hyperglycemia due to type 2 diabetes mellitus; Translations: [Type 2 diabetes mellitus with hyperglycemia] Onset: 2 Resolved: 2 Chronic Diabetes mellitus without complication (17 sources) Type 2 diabetes mellitus; Translations: [Type 2 diabetes mellitus without complications] Onset: 3 05-09-2024 Chronic Disorders of lipid metabolism (20 sources) Hyperlipidemia; Translations: [Hyperlipidemia, unspecified] Onset: 3 Resolved: 2 Chronic E Codes: Natural/environment (1 source) Exposure to other specified factors, initial encounter; Translations: [EXPOSURE OTHER SPEC FACTORS INITIAL] Onset: 3 Episodic Esophageal disorders (17 sources) Gastroesophageal reflux disease; Translations: [Gastro-esophageal reflux disease without esophagitis] Onset: 3 05-09-2024 Chronic Essential hypertension (20 sources) Essential hypertension; Translations: [Essential (primary) hypertension] Onset: 3 Resolved: 2 Chronic Genitourinary symptoms and ill-defined conditions (8 sources) Proteinuria, unspecified Onset: 2 Resolved: 2 Episodic Hepatitis (20 sources) Nonalcoholic steatohepatitis; Translations: [Nonalcoholic steatohepatitis (SANTANA)] Onset: 1 Resolved: 1 Chronic Hypertension with complications and secondary hypertension (2 sources) Hypertensive heart disease without heart failure; Translations: [Hypertensive heart disease without heart failure] Onset: 4 Chronic Mycoses (1 source) Pain in toe; Translations: [Tinea unguium] 08-08-2024 Episodic Nonspecific chest pain (1 source) Precordial pain; Translations: [PRECORDIAL PAIN] Onset: 3 Episodic Nutritional deficiencies (20 sources) Vitamin D deficiency; Translations: [Vitamin D deficiency, unspecified] Chronic Open wounds of extremities (3 sources) Amputated big toe; Translations: [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, initial encounter] 07-31-2024 Chronic Osteoarthritis (2 sources) Arthritis of left acromioclavicular joint; Translations: [Primary osteoarthritis, left shoulder] 07-23-2024 Chronic Other aftercare (1 source) 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; Translations: [JAIL CURRENT USE OF ASPIRIN] Onset: 3 Episodic Other aftercare (1 source) Other mcc (current) drug therapy; Translations: [OTH LEARNING AND DEVELOPMENT ADMINISTRATOR CURRENT DRUG THERAPY] Onset: 3 Episodic Other aftercare (6 sources) Long-term current use of insulin; Translations: [snf (current) use of insulin] Episodic Other aftercare (1 source) snf (current) use of insulin Episodic Other connective tissue disease (3 sources) Pain in unspecified foot Episodic Other connective tissue disease (4 sources) Impingement syndrome of right shoulder; Translations: [IMPINGEMENT SYNDROME RIGHT SHOULDER] Onset: 3 Episodic Other connective tissue disease (14 sources) Chronic pain of right foot; Translations: [Pain in right toe(s)] Onset: 4 02-05-2024 Episodic Other connective tissue disease (6 sources) Full thickness rotator cuff tear; Translations: [Complete rotator cuff tear or rupture of left shoulder, not specified as traumatic] 07-23-2024 Episodic Other connective tissue disease (2 sources) Pain in right foot; Translations: [Pain in right foot] 08-29-2024 Episodic Other diseases of veins and lymphatics (4 sources) Lymphedema, not elsewhere classified; Translations: [LYMPHEDEMA NOT ELSEWHERE CLASSIFIED] Onset: 3 Chronic Other liver diseases (20 sources) Steatosis of liver; Translations: [Fatty (change of) liver, not elsewhere classified] Chronic Other lower respiratory disease (1 source) Other forms of dyspnea; Translations: [OTHER FORMS OF DYSPNEA] Onset: 3 Episodic Other nervous system disorders (20 sources) Neuropathy; Translations: [Polyneuropathy, unspecified] Chronic Other nervous system disorders (3 sources) Polyneuropathy, unspecified Chronic Other nervous system disorders (20 sources) Complex regional pain syndrome type II of right lower limb; Translations: [Causalgia of right lower limb] Onset: 4 02-29-2024 Chronic Other nervous system disorders (17 sources) Peripheral nerve disease ; Translations: [Polyneuropathy, unspecified] Onset: 3 05-09-2024 Chronic Other nervous system disorders (1 source) Causalgia of right lower limb; Translations: [Complex regional pain syndrome type II of right lower limb] Onset: 4 Chronic Other nervous system disorders (1 source) Other chronic pain; Translations: [Chronic toe pain, right foot] Onset: 4 Chronic Other non-traumatic joint disorders (4 sources) Derangement of left shoulder joint; Translations: [Other specific joint derangements of left shoulder, not elsewhere classified] 07-23-2024 Chronic Other non-traumatic joint disorders (2 sources) Pain in left shoulder; Translations: [Pain in joint, shoulder region] 07-23-2024 Episodic Other nutritional; endocrine; and metabolic disorders (20 [...] [BODY MASS INDEX BMI 40.0-44.9 ADULT] Onset: 2 Resolved: 2 Chronic Other nutritional; endocrine; and metabolic disorders (1 source) Body mass index (BMI) 39.0-39.9, adult Onset: 2 Resolved: 2 Chronic Other nutritional; endocrine; and metabolic disorders (15 sources) Metabolic syndrome X; Translations: [Metabolic syndrome] Chronic Other nutritional; endocrine; and metabolic disorders (20 sources) Obesity; Translations: [Obesity, unspecified] Chronic Other nutritional; endocrine; and metabolic disorders (3 sources) Metabolic syndrome Chronic Other nutritional; endocrine; and metabolic disorders (4 sources) Obesity, unspecified; Translations: [OBESITY UNSPECIFIED] Onset: 3 Chronic Other nutritional; endocrine; and metabolic disorders (16 sources) Severe obesity; Translations: [Morbid (severe) obesity due to excess calories] Onset: 4 02-05-2024 Chronic Other nutritional; endocrine; and metabolic disorders (1 source) Morbid (severe) obesity due to excess calories; Translations: [Class 3 severe obesity with serious comorbidity and body mass index (BMI) of 40.0 to 44.9 in adult, unspecified obesity type (HCC)] Onset: 4 Chronic Other nutritional; endocrine; and metabolic disorders (1 source) Abnormal weight gain Episodic Other screening for suspected conditions (not mental disorders or infectious disease) (20 sources) Computed tomography result abnormal; Translations: [Abnormal findings on diagnostic imaging of other specified body structures] Chronic Other upper respiratory disease (4 sources) Epistaxis; Translations: [EPISTAXIS] Onset: 3 Episodic Peripheral and visceral atherosclerosis (20 sources) Peripheral vascular disease; Translations: [Peripheral vascular disease, unspecified] Onset: 2 Chronic Phlebitis; thrombophlebitis and thromboembolism (5 sources) Acute embolism and thrombosis of unspecified deep veins of unspecified lower extremity; Translations: [Acute embolism and thrombosis of unspecified deep veins of right lower extremity] Onset: 3 Episodic Residual codes; unclassified (1 source) Edema, unspecified; Translations: [EDEMA UNSPECIFIED] Onset: 3 Episodic Skin and subcutaneous tissue infections (1 source) Cellulitis of right lower limb Episodic Superficial injury; contusion (1 source) Abrasion of nose, initial encounter; Translations: [ABRASION OF NOSE INITIAL ENCOUNTER] Onset: 3 Episodic Unclassified (4 sources) CHRN KIDNEY DISEASE STG 3 UNSP; Translations: [CHRN KIDNEY DISEASE STG 3 UNSP] Onset: 2 Unclassified (1 source) Non-pressure chronic ulcer of unspecified part of right lower leg limited to breakdown of skin; Translations: [Non-pressure chronic ulcer of unspecified part of right lower leg limited to breakdown of skin] Onset: 3 Unclassified (1 source) Class 3 severe obesity with serious comorbidity and body mass index (BMI) of 40.0 to 44.9 in adult, unspecified obesity type (HCC); Translations: [Class 3 severe obesity with serious comorbidity and body mass index (BMI) of 40.0 to 44.9 in adult, unspecified obesity type (HCC)] Onset: 4 Past or Other Problems Problem Classification Problem Date Documented Da te Episodic/Chronic Other connective tissue disease (4 sources) Pain in right foot; Translations: [PAIN IN RIGHT FOOT] Onset: 08-18-2022 Episodic Other connective tissue disease (1 source) Pain in right toe(s); Translations: [Chronic toe pain, right foot] Onset: 04-03-2024 Episodic Other diseases of kidney and ureters (4 sources) Cyst of kidney, acquired; Translations: [CYST OF KIDNEY ACQUIRED] Onset: 2022 Episodic Unclassified (1 source) CHRN KIDNEY DISEASE STG 3 UNSP; Translations: [CHRN KIDNEY DISEASE STG 3 UNSP] Onset: 11-08-2022 Results Test Name Value Interpretation Reference Range Facility Ambulatory Visit Summaryon 1 10-15-2023 Ambulatory Visit Summary Ambulatory Visit Summary DONG WHITMORE :1950 Visit Date:08/15/2024 Ambulatory Visit Instructions Your Diagnosis Major depressive disorder, 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 BMI 40.0-44.9, adult, Body mass index [BMI] 40.0-44.9, adult Morbid obesity with BMI of 40.0-44.9, adult Nonsmoker Your Care Team Attending Physician - Haider Hickman MD Primary Care Physician - Haider Hickman MD This Is Your Medications List Misc Prescription (Handminoo Prather, 5 years.) acarbose (acarbose 25 mg [...] 30 mg Tab) potassium chloride (Potassium Chloride (Mzh-Mfyb-Xcy M20) 20 mEq oral tablet, extended release) pregabalin (Lyrica 75 mg Cap) simvastatin (simvastatin 40 mg Tab) sitagliptin (Januvia 100 mg Tab) sodium bicarbonate (sodium bicarbonate 650 mg Tab) tizanidine (tiZANidine 4 mg Tab) venlafaxine (venlafaxine 75 mg Tab) Procedures Performed Percutaneous implantation of [...] conduit, Stimulator. Discharge Vitals Temperature (Temporal Artery) 36.3 ???C Heart Rate (Peripheral) 72 Respiratory Rate 18 Blood Pressure 126/82 Height 169 cm Height 67 in Weight 119.9 kg Weight 263.78 lb BMI 41.98 What to do next Scheduled Follow-Up Appointments Monday 3:30 PM EST With: Marylou SCHUSTER, Haider Bee Where: [address] [address]24 8:00 AM EDT With: Where: [address] [address]- Monday 9:15 AM EDT With: AIDAN SCHUSTER, Araceli Treadwell Where: [facility] [address] [place] [address]- Medications What How Much When Why Instructions [...] 2 times a day Unchanged metoprolol (metoprolol succinate 50 mg ER [...] Peripheral edema Handicap Placard, 5 years. Unchanged nitroglycerin (nitroglycerin 0.4 mg sublingual Tab) 1 Tablets Sublingual Every 5 minutes as needed for for chest pain Unchanged omega-3 polyunsaturated fatty acids (Fish Oil 1200 mg oral capsule) 1 Capsules By Mouth Every day Unchanged pioglitazone (pioglitazone 30 mg Tab) 1 Tablets By Mouth Every day Unchanged potassium chloride (Potassium Chloride (Azd-Qidu-Znv M20) 20 mEq oral tablet, extended release) 1 Tablets By Mouth Every day Unchanged pregabalin (Lyrica 75 mg Cap) 1 Capsules By Mouth 2 times a day Unchanged simvastatin (simvastatin 40 mg Tab) 1 Tablets (more content not included)... Normal [facility] Family Medicine Office/Clini c Noteon 08-15-2024 Family Medicine Office/Clinic Note Family Medicine Office/Clinic Note Chief Complaint Chronic pain management and intermittent insomnia HPI Staff Dong is a 73 year old male presenting for 2 week follow up mood and neuropathy DALILA increased the venlafaxine Follow up for Mental Status: Medication adherence- Yes, takes medication as prescribed Medication refill needed: _ Suicidal thoughts-Not at this time Most recent LOW: 10 Most recent PHQ9: 5 questions/concerns: History of Present Illness The patient is a 74-year-old male presenting with chronic pain management concerns and concurrent insomnia. The chronic pain is primarily located in the left great toe, intensifying with weight-bearing activities. It has been persistent and poorly responsive to previous conservative treatment, leading to consultations with orthopedic surgeons and a neurologist. Recent interventions include Lyrica (pregabalin) for neuropathic pain and mood stabilization, alongside tizanidine for muscle relaxation. Despite these measures, the pain persists, disrupting sleep patterns, notably with nocturnal awakenings around 2-3 AM. The patient reports improved daytime functioning, although residual pain remains problematic between medication doses. The possibility of lumbar spinal stenosis contributing to the pain has been raised, reinforced by prior spinal injections and discussions about possible surgical interventions if symptoms do not improve. Additionally, insomnia secondary to pain has become a concern, potentially exacerbated by medication-related somnolence and dry mouth. Review of Systems PHQ Score Initial Depression Screen Score: 0 SCORE - Neurological: Reports difficulty with sleep continuity and nocturnal awakenings. - Musculoskeletal: Reports persistent left toe pain not abating fully with numbness intervention. - Psychological: Denies current mood issues but notes previous irritability and frustration related to unresolved pain. Physical Exam Vitals & Measurements T: 36.3 ???C(Temporal Artery) HR: 72(Peripheral) RR: 18 BP: 126/82 SpO2: 100% HT: 67 in HT: 169 cm WT: 119.9 kg WT: 263.78 lb BMI: 41.98 General: alert, no acute distress ENMT: oral mucosa moist Cardiovascular: Regular rate and rhythm, normal peripheral perfusion Respiratory: Lungs clear to auscultation, respirations non labored Extremities: no deformity, no trauma Neurological: oriented x 4, level of consciousness appropriate for age, CN II-XII intact, motor strength equal & normal bilaterally, speech normal Abdomen: Soft, Non-tender, Non-distended, + Bowel sounds Assessment/Plan 1. Insomnia, unspecified (G47.00) Evaluate current sleep disturbances consequential to pain, considering adjustment of the tizanidine dosage in alignment with insomnia care standards to improve sleep architecture, while maintaining analgesic monitoring through the pain management spectrum. Reassess the sleep cycle disturbances in correlation with pain evaluations during follow-ups, with potential alterations to pharmacotherapy based on patient tolerance and symptom alleviation. 2. Major depressive disorder, 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 (F32.5: Major depressive disorder, single episode, in full remission) Continue current management with Lyrica, monitoring any mood fluctuations or interactions with ongoing medications. Patient to report any recurrence or significant shifts in psychological wellbeing at follow-up. Pt's depression and anxiety is well controlled. Pt states his answers at last visit were for attention. 3. BMI 40.0-44.9, adult (Z68.41: Body mass index [BMI] 40.0-44.9, adult) BMI education added 4. Morbid obesity with BMI of 40.0-44.9, adult (E66.01: Morbid (severe) obesity due to excess calories) Diet and exercise advised 5. Nonsmoker (Z78.9: Other specified health status) Please continue to not smoke. 6. Other chronic pain (G89.29) Maintain current Lyrica regimen for neuropathic pain with regular assessments for efficacy and side effects. Continue exploring pain management strategies inclusive of post-surgical feedback following orthopedic consultations. Await further evaluation from the neurology referral to manage the ongoing lumbar stenosis contribution. Orders: pregabalin, 75 mg = 1 cap(s), Oral, BID, # 60 cap(s), Refills(s) 1, Pharmacy: [facility]/pharmacy #[id number], 169, cm, 08/15/24 10:34:00 EST, Height/Length Dosing, 119.9, kg, 08/15/24 10:34:00 EST, Weight Dosing 74-year-old male with history of major depressive disorder, 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, stands currently at the juncture of managing chronic pain and its resultant insomnia. His primary complaint today revolves around difficulties in adequate pain control and sleep maintenance. Previous orthopedic evaluations suggest the pain may be attributable to past lumbar spinal issues, correlating with current findings of persisting neuropathic discomfort. He indirectly associates his symptom management with factors from these diagnoses, including interactions b (more content not included)... Normal [facility] Comment on above: Result Comment: Elec tronically Signed By: Marylou SCHUSTER, Haider Sandhu.br\Date and Time Signed: 08/15/24 11:26 EST Ksenia 08-14-2024 CNOV Office Visit (NPRC21 ) DONG WHITMORE ([id number]) 1950 M Date Time Provider Department 08/14/24 10:00 AM CHIQUI ROBLES [id number] During your visit today, we recorded the following information about you: Pulse Respiration Blood pressure Weight 59/minute 16/minute 137/69 117.2 kg Claudia Chilel MD 08/14/2024 10:51 AM Signed THE [facility] [place] August 14, 2024 This is a face to face visit. SUBJECTIVE: Pain in R foot is improved since last visit, but still present. On Memantine 10 mg daily now, which does not help. Middle R toe was amputated (06/2024). Saw no improvement in pain with this. Restarted Lyrica from PCP shortly afterwards (which has been helpful). Currently, taking Lyrica, Wellbutrin, Effexor, Tizanidine, Memantine. Has some sedation with taking Lyrica and Tizanidine and had a fall when he tripped on a curb. PCP wants to get EMG. Also has back pain. OBJECTIVE: PHYSICAL EXAM: There were no vitals taken for this visit. GENERAL APPEARANCE: Well appearing, well-hydrated, well nourished and alert NEURO/PSYCH: cranial nerves 2-12 intact, speech normal, mental status intact MUSCULOSKELETAL: Amputations of first, second, and third toe on R foot. Numbness from neuropathy in R foot extends to past ankle. Intact strength in R foot with ankle flexion/extension. ASSESSMENT: Dong Whitmore is a 74 year old male with PMH of T2DM (c/b peripheral neuropathy) and CPRS who presents for follow-up appointment for R foot pain. Last seen in clinic on 04/24/2024. Since then, has had third toe of R foot amputated and restarted Lyrica, which has been helpful for pain but causes sedation. CRPS with R foot pain T2DM with diabetic neuropathy PLAN: Discontinue Memantine due to lack of benefit. Continue Tizanidine (4 mg TID) and Lyrica (75 mg BID) without changes for now (managed and prescribed by PCP). Can consider discontinuing Lyrica and starting Trileptal if sedation is more bothersome. Claudia Chilel MD, AMANDA August 14, 2024 10:37 AM Chiqui Robles MD 08/26/2024 4:34 PM Addendum [facility] STAFF PHYSICIAN NOTE OF PERSONAL INVOLVEMENT IN CARE IMPRESSION: Complex regional pain syndrome type ii of right lower limb Chronic toe pain, right foot Class 3 severe obesity with serious comorbidity and body mass index (bmi) of 40.0 to 44.9 in adult, unspecified obesity type (hcc) Adjustment disorder with depressed mood (primary encounter diagnosis) Sleepy on current meds, had a recent fall. No benefit from memantine Discussed risks with ketamine Continued pain, but more stable. Interested in what other option Dr Araujo had. Unsure of what this is. PLAN: Stop memantine Continue current medications I have reviewed the documentation above obtained [...] case and management of the patient's care. As noted, the patient's clinical situation is complex and serious with significant comorbidity of pain and functional limitations. This requires higher levels of time, intensity, and expense with longitudinal care and support. Psychotherapy Add-on Progress Note Due to medical condition and comorbid psychological and behavioral concerns - psychotherapy was utilized during the visit. [id number]-uv-[id number] time: 10742 (16-37 mins) actual time spend in psychotherapy 18 minutes Type of therapeutic intervention:Supportiv e Target symptoms: Pain coping skills and Acceptance and adapting Progress/Session notes:processing Interactive Complexity: None STAFF PHYSICIAN:: Chiqui Robles MD DATE of SERVICE: 08/14/2024 Referring Provider: CHIQUI ROBLES [[id number]] Allergies As of Date: 08/14/2024 Noted Allergy Reaction NSAIDS (NON-STEROIDAL ANTI-INFLAM*02/05/2024 8 - GI Upset Date Reviewed: 08/14/2024 Reviewed by: Heather Valdes OCCA - Fully Assessed Reason for Visit: Follow Up [171] Primary Visit Diagnosis:Adjustment disorder with depressed mood [F43.21] Other Visit Diagnoses:Complex regional pain syndrome type II of right lower limb [G57.71] Chronic toe pain, right foot [M79.674, G89.29] Class 3 severe obesity with serious comorbidity and body mass index (BMI) of 40.0 to 44.9 in adult, unspecified obesity type (HCC) [E66.813, E66.01, Z68.41] Order(s):PROVIDER ORDERED FOLLOW UP [[id number]] Order #: [id number]: 1 Prescriptions as of 08/26/2024 - pregabalin (LYRICA) 75 mg capsule Take 75 mg by mouth two times a day. - memantine (NAMENDA) (more content not included)... Normal [facility] Office Visiton 08-07-2024 Follow-up visit [id number] Dong Whitmore 1950 M Date Provider Department Center 08/07/2024 [facility] Family History Problem Relation Age of Onset Coronary artery disease Other Diabetes Other Family Status - Relation Status Age at Other Level of Service:03336 SD OFFICE/OUTPATIENT ESTABLISHED MOD MDM 30 MIN Reason for Visit and Comments: Hypertension [988565] - He brought BP log from home with him today. Readings are usually in the 130-140's systolic. Hyperlipidemia [182] Coronary Artery Disease [187] - Denies chest pain and SOB. Normal [facility] Ambulatory Visit Summaryon 1 Ambulatory Visit Summary Ambulatory Visit Summary DONG WHITMORE :1950 Visit Date:08/01/2024 Ambulatory Visit Instructions Your Diagnosis Suicidal ideation Unspecified mononeuropathy of right lower limb BMI 40.0-44.9, adult Morbid obesity with body mass index (BMI) of 40.0 or higher Nonsmoker Your Care Team Attending Physician - Haider Hickman MD Primary Care Physician - Haider Hickman MD This Is Your Medications List pregabalin (Lyrica 75 mg Cap) tizanidine (tiZANidine 4 mg Tab) venlafaxine (venlafaxine 75 mg Tab) Contact prescribing physician if questions [...] 30 mg Tab) potassium chloride (Potassium Chloride (Fca-Ljhy-Gnu M20) 20 mEq oral tablet, extended release) simvastatin (simvastatin 40 mg Tab) sitagliptin (Januvia 100 mg Tab) sodium bicarbonate (sodium bicarbonate 650 mg Tab) Procedures Performed Percutaneous implantation of [...] conduit, Stimulator. Discharge Vitals Temperature (Temporal Artery) 36.7 ???C Heart Rate (Peripheral) 76 Respiratory Rate 16 Blood Pressure 122/80 Height 169 cm Height 67 in Weight 116.3 kg Weight 255.86 lb BMI 40.72 What to do next Scheduled Follow-Up Appointments 2023 10:30 AM EST With: Haider Hickman MD Where: [address] [address]- Monday 3:30 PM EST With: Haider Hickman MD Where: [address] [address] 2024 8:00 AM EDT With: Where: [address] [address]- Monday 9:15 AM EDT With: Araceli BERMUDEZ MD Where: [facility] [address] [place] [address]- Someone Will Contact You Regarding These Appointments [facility] External Ambulatory Referral, Neurology, 08/01/24 12:15:00 EDT, Suicidal ideation Unspecified mononeuropathy of right lower limb BMI 40.0-44.9, adult Morbid obesity with body mass index (BMI) of 40.0 or higher Nonsmoker Medications What How Much When Why Instructions New pregabalin (Lyrica 75 mg Cap) 1 Capsules By Mouth 2 times a day Pickup at [facility]/pharmacy #[id number] Changed tizanidine (tiZANidine 4 mg Tab) 4 Milligram By Mouth Every [address] [facility]/pharmacy #[id number] Changed venlafaxine (venlafaxine 75 mg Tab) 1 Tablets By Mouth 2 times a day Pickup at [facility]/pharmacy #[id number] Unchanged acarbose (acarbose 25 mg oral tablet) [...] Unchanged memantine (memantine 5 mg Tab) 1 Table (more content not included)... Normal [facility] Family Medicine Office/Clini c Noteon 08-01-2024 Family Medicine Office/Clinic Note Family Medicine Office/Clinic Note Chief Complaint The patient reports persistent neuropathic pain primarily affecting the right foot. HPI Staff Dong is a 73 year old male presenting for acute visit Acute: foot and back pain, foot dr recommended f/u with PCP Foot won't do anything for his foot pain and leaving it up to Dr Hickman Has appt comiing up with a dr at [facility] says he's a psychiatrist he's in pain mgmt Pain characteristics: Pain location: right foot and upper and lower back Intensity:8/10 for feet, 2-3 for back Onset: years Medication used: tizanidine 4mg doesn't help all the time Will need it refilled though and needs refills of his januvia and losartan flu: done 07/31/24 History of Present Illness The patient is a 73-year-old male presenting with neuropathic pain primarily affecting the right foot. The pain started several months ago and is described as throbbing and occasionally shooting with no burning sensation. It becomes severe, disrupting sleep, described as reaching a 10/10 on the pain scale at its worst. It interferes significantly with daily activities, including driving. The patient has attempted to manage the pain with various medications, including gabapentin and Lyrica, with reported ineffectiveness. Currently, tizanidine provides some relief when taken in higher than prescribed doses. The patient breaks 2mg tizanidine tablets to manage dosing himself, often exceeding the recommended amount to mitigate peak pain episodes. Efforts to establish an effective sleep routine with night-time dosing of tizanidine have had limited success, with breakthrough pain occurring after three hours of relief. Past interventions include lidocaine injections, which have not alleviated the pain. The patient reports significant frustration with pain management, leading to thoughts of self-harm, though these thoughts are attributed to acute pain episodes. The family supports the patient, and adjustments to the treatment regimen have been discussed. Review of Systems PHQ Score Initial Depression Screen Score: 3 SCORE Detailed Depression Screen Score: 19 Total Depression Screen Score: 22 - Neurological: Reports shooting and throbbing pain in the right foot. - Musculoskeletal: Denies trauma or arthropathy to the affected area. Physical Exam Vitals & Measurements T: 36.7 ???C(Temporal Artery) HR: 76(Peripheral) RR: 16 BP: 122/80 SpO2: 97% HT: 67 in HT: 169 cm WT: 116.3 kg WT: 255.86 lb BMI: 40.72 General: alert, no acute distress ENMT: oral mucosa moist Cardiovascular: Regular rate and rhythm, normal peripheral perfusion Respiratory: Lungs clear to auscultation, respirations non labored Extremities: no deformity, no trauma Neurological: oriented x 4, level of consciousness appropriate for age, CN II-XII intact, motor strength equal & normal bilaterally, speech normal Abdomen: Soft, Non-tender, Non-distended, + Bowel sounds Assessment/Plan 1. Suicidal ideation (R45.851: Suicidal ideations) At this point the patient states that he has no plan to commit suicide. Patient states if the pain that causes him to think he would be better off . But has no plan to do so. When pressed he said he is not really serious but when he is in so much pain he just does not want to have the pain anymore. Patient promises that he will not commit suicide and that he will come back in 2 weeks for checkup. Will increase the venlafaxine. Ordered: E&M of Est. Patient High 40-54 Min [id number] [facility] External Ambulatory Referral Prolonged OV 15 min 06946 2. Unspecified mononeuropathy of right lower limb (G57.91) Discussed the partial efficacy of tizanidine and outlined a new regimen involving increased frequency of administration to three times daily, ensuring consistent management of neuropathic symptoms. Introduced Lyrica (pregabalin) at a low dose twice daily to complement tizanidine. Recommended a neurological referral for further assessment of underlying neuropathic issues and structural causes. Suggested vascular evaluation as a future step if neuropathic etiology remains unclear. Discussed increasing venlafaxine dosage for mood stabilization in light of reported thoughts of self-harm linked to pain episodes. Provided education on the importance of regimen adherence and communicated potential side effects of polypharmacy. Ordered: E&M of Est. Patient High 40-54 Min 21010 [facility] External Ambulatory Referral Prolonged OV 15 min 07127 3. BMI 40.0-44.9, adult (Z68.41: Body mass index [BMI] 40.0-44.9, adult) Discussed the importance of lifestyle changes, including dietary modifications and physical activity, to manage BMI. Addressed the potential contributions of morbid obesity to peripheral neuropathic symptoms. Ordered: Body Mass Index (BMI) documented 3008F Current tobacco non-user 1036F Depression Screening Positive 3354F E&M of Est. Patient High 40-54 Min 40583 Fall Risk Screen 2 or more w/injury 1100F [facility] External (more content not included)... Normal [facility] Comment on above: Result Comment: Elec tronically Signed By: Marylou SCHUSTER, Haider Bee\.cyrus\Date and Time Signed: 08/01/24 12:17 EDT 36on 07-23-2024 36 Patient brought in 2 BP monitors from home into the office for calibration. 1st reading (his machine): L sitting 129/58 HR 58 2nd reading (his other machine): L sitting 142/77 HR 57 3rd reading (our machine): L sitting 122/67 HR 62 4th reading (manual): L sitting 120/68 5th reading (his other machine again): L sitting 175/112 Normal [facility] Telephoneon 07-23-2024 Telephone [id number] Dong Whitmore 1950 M Date Provider Department Center 07/23/2024 928-BRITNEY MURPHY DALTON Sarkar Family History Problem Relation Age of Onset Coronary artery disease Other Diabetes Other Family Status - Relation Status Age at Other Normal [facility] Office Visiton 07-19-2024 Follow-up visit [id number] Dong Whitmore 1950 M Date Provider Department [place] 07/19/2024 3848-ELAINE FISHER D[facility]TON [facility] Family History Problem Relation Age of Onset Coronary artery disease Other Diabetes Other Family Status - Relation Status Age at Other Level of Service:94885 SD OFFICE/OUTPATIENT ESTABLISHED MOD MDM 30 MIN [facility] Ambulatory Visit Summaryon 1 Ambulatory Visit Summary [...] 30 mg Tab) potassium chloride (Potassium Chloride (Jlo-Eozi-Npp M20) 20 mEq oral tablet, extended release) [...] Follow-Up Appointments Monday 3:30 PM EST With: Marylou SCHUSTER, Haider Bee Where: [facility] [address] [address]- Monday 10:30 AM EST With: Araceli BERMUDEZ MD Where: [facility] [address], [address] [place] [address]- 2024 8:00 AM EDT With: Where: [facility] [address] [address]- Monday 9:15 AM EDT With: Araceli BERMUDEZ MD Where: [facility] [address], [address] [place] [address]- You Need to Schedule the Following Appointments Follow Up with AIDAN SCHUSTER, Araceli Treadwell, URL When: Where: [address] [facility] [address] [place] [address]- Medications What How Much When Why Instructions Unchanged sodium bicarbonate (sodium bicarbonate 650 mg Tab) 2 Tablets By Mouth 3 times a day Duration: [address] [facility]/pharmacy #7301 Unchanged acarbose (acarbose 25 mg oral tablet) [...] if questions or concerns Unchanged Misc Prescription (Handicap Placlizzie, 5 years.) Se (more content not included)... Normal [facility] Reminderson 07-17-2024 Reminders Reminders From: Roya Álvarez To: PREM Bermudez; Sent: 07/17/2024 10:05:54 EDT Show up: 05/17/2025 10:05:00 EDT Subject: Renal US Due Date/Time: 05/17/2025 10:05:00 EDT Reminder Message Renal US to be done prior to 1 year appointment. [facility]. Order created today. Normal [facility] Urology Office/Clinic Noteon 07-17-2024 Urology Office/Clinic Note Urology Office/Clinic Note Chief Complaint follow up HPI Staff 73 yo male here for f/up with renal US. Previous dx: kidney stone, complex renal cyst, BPH w/ LUTS, impotence. Taking Sodium Bicarb 650mg tid. Renal US 10/31/23 TB. KUB 11/10/23 [facility] - no stones id'd. S/p cysto, R RPG, R ESWL 01/04/24. Renal US 01/24/24 [facility] - neg limited renal ultrasound. Renal US 07/04/24 [facility] - 1.3 cm cyst involving the upper [...] with voice recognition artificial intelligence software, specifically Sulia, PerioSeal and or [employer]. Substitutions may have occurred due to the [...] RPG, R ESWL 01/04/24. Renal US 01/24/24 [facility] - neg limited renal ultrasound. Renal US [...] ordered PSA. Follow-up With When Contact Information Araceli BERMUDEZ MD, URL [address] [place], [place] [id number]- Additional Instructions: 1 year w/ renal US Patient Education Dietary Guidelines to Help Prevent Kidney Stones I, Roya Álvarez, personally scribed for Dr. Bermudez on 07/17/2024 10:05:06 (more content not included)... Normal [facility] Comment on above: Result Comment: Elec tronically Signed By: Araceli BERMUDEZ MD\.br\Date and Time Signed: 07/17/24 10:09 EDT\.br\Electronically Co-Signed By: Roya Álvarez.br\Date and Time Co-Signed: 07/17/24 10:05 EDT Office Visiton 06-26-2024 Follow-up visit [id number] Dong Whitmore 1950 M Date Provider Department Center 06/26/2024 Yung-MARY APARICIO C[facility] Family History Problem Relation Age of Onset Coronary artery disease Other Diabetes Other Family Status - Relation Status Age at Other Level of Service:80441 SD OFFICE/OUTPATIENT ESTABLISHED MOD MDM 30 MIN Reason for Visit and Comments: Coronary Artery Disease [187] Hypertension [055092] Normal [facility] Ambulatory Visit Summaryon 0 05-31-2024 [...] Hickman MD This Is Your Medications List [facility] Prescription (Eric Prather, 5 [...] 30 mg Tab) potassium chloride (Potassium Chloride (Cpv-Awav-Jis M20) 20 mEq oral tablet, extended release) [...] Araceli BERMUDEZ MD Where: [facility] [address], [address] [place] [address]- Monday 3:30 PM EST With: Haider Hickman MD Where: [address] [address]- Monday 10:30 AM EST With: Araceli BERMUDEZ MD Where: [facility] [address], [address] [place] [address]- 2024 8:00 AM EDT With: Where: [address] [address]- Medications What How Much When Why Instructions [...] Unchanged nitrog (more content not included)... Normal [facility] Family Medicine Office/Clini c Noteon 05-23-2024 [...] 10 days Encouraged to leave the are [employer] f/u with pcp after seen at wound clinic Ordered: clindamycin, 300 mg = 1 cap(s), Oral, BID, X 10 day(s), # 20 cap(s), Refills(s) 0, Pharmacy: [facility]/pharmacy #[id number], 169, cm, 05/22/24 14:52:00 [...] day(s), # 20 cap(s), Refills(s) 0, Pharmacy: [facility]/pharmacy #[id number], 169, cm, 05/22/24 14:52:00 EDT, Height/Length Dosing, 122, kg, 05/22/24 14:52:00 EDT, Weight Dosing 3. Non-smoker (Z78.9: Other specified health status) Encouraged to continue as a non-smoker Ordered: clindamycin, 300 mg = 1 cap(s), Oral, BID, X 10 day(s), # 20 cap(s), Refills(s) 0, Pharmacy: [facility]/pharmacy #[id number], 169, cm, 05/22/24 14:52:00 [...] Oral, BID (more content not included)... Normal [facility] Comment on above: Result Comment: Elec [...] Hickman MD This Is Your Medications List [facility] Prescription (Eric Prather, 5 [...] 30 mg Tab) potassium chloride (Potassium Chloride (Vne-Wqks-Hhb M20) 20 mEq oral tablet, extended release) [...] Appointments Monday 8:15 AM EDT With: Kajal Cam DPM Where: [facility] Monday 9:15 AM EDT With: Araceli BERMUDEZ MD Where: [facility] [address] [place] [address]- Monday 3:30 PM EST With: Haider Hickman MD Where: [address] [address]- Monday 10:30 AM EST With: Araceli BERMUDEZ MD Where: [facility] [address] [place] [address]- 2024 8:00 AM EDT With: Where: [facility] [place] [id number]- Medications What How Much When Why Instructions New clindamycin (clindamycin 300 mg oral cap) 1 Capsules By Mouth 2 times a day Cellulitis of leg BMI 40.0-44.9, adult Non-smoker Class 3 severe obesity due to excess calories with body mass index (BMI) of 40.0 to 44.9 in adult Duration: [address] [facility]/pharmacy #4422 Unchanged acarbose (acarbose 25 mg oral tablet) [...] Unchanged nitroglyce (more content not included)... Normal [facility] Family Medicine Office/Clini c Noteon 05-14-2024 [...] Precautions for MERS/COVID-19 : N/A Debra Bermudez Kiki 05/13/2024 9:39 EDT Medicare/Medicaid Summary Systolic Blood Pressure : 138 mmHg Diastolic Blood Pressure : 70 mmHg Blood Pressure Location : Left arm Blood Pressure Position : Sitting Peripheral Pulse Rate : 65 bpm Respiratory Rate : 14 br/min SpO2 : 95 % Debra Bermudez Kiki 05/13/2024 10:35 EDT Chief Complaint : Subsequent [...] Rating Pain Score : 8 Debra Bermudez Kiki 05/13/2024 9:39 EDT Hearing and Vision Screening FT FT Whisper Test Comments : admits to hearing deficts -has had an appointment. Hearing aides expensive. Vision Screen Comments : has corrective lens. yearly checks. Has appt [facility] next week. Debra Bermudez Charanijt Swanson 05/13/2024 9:39 EDT Advance Directive FT Advance Directive : Yes Type of Advance Directive : Living will, Medical durable power of assistant district attorney Organ Donation Consent : Yes Debra Bermudez Kiki 05/13/2024 9:39 EDT Procedures / Surgeries FT [...] Last Reviewed Dt/Tm: 05/13/2024 09:44:11 EDT Location: [facility] ; Anesthesia Minutes: 0 ; Procedure [...] 05/13/2024 09:44:11 (more content not included)... Normal [facility] Comment on above: Result Comment: Elec tronically Signed By: Haider Hickman MD\.br\Date and Time Signed: 05/14/24 10:23 EDT\.br\Electronically Co-Signed By: Debra Bermudez.br\Date and Time Co-Signed: 05/13/24 13:04 EDT Ksenia 04-24-2024 CNOV Office Visit (NPRC21 ) DONG WHITMORE ([id number]) 1950 M Date Time Provider Department 04/24/24 9:00 AM CHIQUI ROBLES NPRC21 During your visit today, we recorded the following information about you: Pulse Blood pressure Weight Height 61/minute 122/89 122.5 kg 1.702 m Parish Rios MD 04/24/2024 11:26 AM Signed [facility] [place] April 24, 2024 This is a face [...] Camacho Desimir, MD 04/24/2024 11:26 AM Signed [facility] STAFF PHYSICIAN NOTE OF PERSONAL INVOLVEMENT IN CARE IMPRESSION: Complex regional pain syndrome Adjustment Disorder Tried multiple injections, procedures, surgeries. No benefit Tried SCS and recently DRG without success. Discussed ketamine PLAN: Ketamine infusions Consider scrambler therapy Psych psychology Memantine 5mg Psychotherapy Add-on Progress Note Due to medical condition and comorbid psychological and behavioral concerns - psychotherapy was utilized during the visit. Ltxg-xp-qijv time: 20288 (16-37 mins) actual time spend in psychotherapy [...] which included preparing to see the patient, aeut-fh-vutm patient care, completing clinical documentation, performing a medically appropriate examination, and counseling and educating the patient/family/caregiv er. As noted, the patient's clinical situation is complex and serious with significant comorbidity of pain and functional limitations. This requires higher levels of time, intensity, and expense with longitudinal care and support. STAFF PHYSICIAN:: Chiqui Robles MD DATE of SERVICE: 04/24/2024 Referring Provider: HERBERTH ARAUJO [[id number]] Allergies As of Date: 04/24/2024 Noted Allergy [...] TO [facility] (CHRONIC PAIN) [[id number]] Order #: [id number]: 1 PAIN RECOVERY FOLLOW UP ORDER [[id number]] Order #: [id number]: 1 FUTURE PROVIDER ORDERED FOLLOW UP [[id number]] Order #: [id number]: 1 FUTURE memantine (NAMENDA) 5 mg tabletTake 1 tablet by mouth once daily.Disp: 30 tabletRfl: 3 CONSULT TO KETAMINE FOR CHRONIC PAIN [9044] Order #: [id number]: 1 FUTURE Prescriptions as of 04/24/2024 - memantine (NAMENDA) 5 mg tablet Take 1 tablet by mouth once daily. - aspirin, enteric coated (ASPIRIN, ENTERIC COATED) 81 mg EC tablet Take 81 mg by mouth once daily. - fi (more content not included)... Normal [facility] BRIEF OP NOTon 04-03-2024 BRIEF OP NOT HNO ID: [id number] Author: CAPRICE DOWNING MD Service: Pain Management Author Type: Fellow Type: Brief Op Note Filed: 04/03/2024 10:35 Note Text: BRIEF OPERATIVE / PROCEDURE NOTE LOG ID: [id number] SURGERY/PROCEDURE DATE: 04/03/2024 PROCEDURE START TIME: 958 PROCEDURE END TIME: 1030 PRE-OP/PRE-PROCEDURE DIAGNOSIS: Chronic toe pain, right foot [M79.674, G89.29] Complex regional pain syndrome type II of right lower limb [G57.71] POST-OP/POST-PROCEDURE DIAGNOSIS: Chronic toe pain, right foot [M79.674, G89.29] Complex regional pain syndrome type II of right lower limb [G57.71] SURGEON(S)/PROCEDURALI ST(S) AND HOOD FITTER(S): Surgeon(s) and Role: * Herberth Araujo MD, PhD - Primary * Caprice Downing MD No Additional Staff SURGERY/PROCEDURE(S): Attempted Right L4 and L5 Dorsal Root Ganglion Stimulator ANESTHESIA: Anxiolysis and Local anesthetic FINDINGS: None ESTIMATED BLOOD LOSS: Minimal SPECIMENS: None COMPLICATIONS: None Caprice Downing MD Pain Medicine Fellow April 03, 2024 Normal [facility] NURSING PROGon 04-03-2024 NURSING PROG HNO ID: [id number] Author: CAYETANO ROSALES RN Service: Nursing Author Type: Registered Nurse Type: Nursing Progress Note Filed: 04/08/2024 15:32 Note Text: Summary: Follow up phone call Follow up phone call made regarding outcome of procedure. No answer voicemail left - The patient was instructed to call [phone] with the percentage of pain relief and what activities have improved. CloudHashing message also sent. [facility] NURSING PROG HNO ID: [id number] Author: SURINDER LARES RN Service: Nursing Author Type: Registered Nurse Type: Nursing Progress Note Filed: 04/09/2024 10:09 Note Text: Summary: Post Procedure Call Patient left voice mail. Team was unable to finish procedure due to patient was unable to stay still. No pain relief noted. Surinder Lares RN April 09, 2024 [facility] NURSING PROG HNO ID: [id number] Author: EMILEE HYDE RN Service: ? Author Type: Registered Nurse Type: Nursing Progress Note Filed: 04/03/2024 10:45 Note Text: Dr. Marian Downing (fellow) discusses reason why procedure was aborted today. Other options for pain management was discussed with patient and . [facility] OPERATIVE NOon 04-03-2024 OPERATIVE NO HNO ID: [id number] Author: HERBERTH ARAUJO MD, PhD Service: Pain Management Author Type: Physician Type: Operative Report Filed: 04/03/2024 20:14 Note Text: OPERATIVE/PROCEDURE REPORT : LOG ID: [id number] SURGERY/PROCEDURE DATE: 04/03/2024 INCISION/PROCEDURE START TIME: 9:59 [...] Dorsal Root Ganglion Stimulator SURGEON(S)/PROCEDURALI ST(S) AND HOOD FITTER(S): Surgeon(s) and Role: * Herberth Araujo MD, [...] program. ELECTRONIC SIGNATURE, Herberth Araujo MD, PhD [facility] HISTORY PHYSICALon HISTORY PHYSICAL HNO ID: [id number] Author: HERBERTH ARAUJO MD, PhD Service: Pain Management Author Type: Physician Type: H&P Filed: 04/03/2024 09:33 Note Text: PROCEDURE EVALUATION AND HISTORY AND PHYSICAL EXAM SUBJECTIVE: Dong Whitmore is a 73 year old man who presents to [facility] for Right L4 and L5 Dorsal Root Ganglion Stimulator Trial. This is his first (1) procedure. Focused Review of Systems: PAIN: Denies any contraindications to the procedure including coagulopathy, infection, recent cerebral/myocardial infarct, and hemodynamic instability. 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 Current Outpatient Medications [...] the patient's condition since the last C25 [facility] visit: No Provisional Diagnosis: Chronic toe pain, right foot [M79.674, G89.29] Complex regional pain syndrome type II of right lower limb [G57.71] Planned Procedure: Right L4 and L5 Dorsal Root Ganglion Stimulator Trial Caprice Downing MD Pain Medicine Fellow April 03, 2024 Herberth Arauoj MD, PhD Normal [facility] NURSING PROGon 04-01-2024 NURSING PROG HNO ID: [id number] Author: GILBERTO BAUTISTA RN Service: ? Author Type: Registered Nurse Type: Nursing Progress Note Filed: 04/01/2024 10:58 Note Text: [facility] Pre- Procedure Telephone Instructions Patient called to remind them of their appointment on 04/03/[address] Araujo Patient instructed to arrive at 0915 Message left: Yes Instructions given: 1. Do not eat or drink for 8 hours, however, you may have clear liquids up to 2 hours before the appointment. 2. A lumber driver must be present who can drive you home. If you are coming by medical transport, you must have a responsible person other than the transport assistant with you. 3. Do you take any [...] or cannot make the appointment by calling [phone] (Option 2). Normal [facility] Ambulatory Visit Summaryon 0 03-26-2024 Ambulatory Visit [...] Is Your Medications List [facility] Prescription (Handeulaliop Yamilka, 5 years.) furosemide (Lasix 40 mg Tab) potassium chloride (Potassium Chloride (Mit-Ptwx-Jlb M20) 20 mEq oral tablet, extended release) [...] Appointments Monday 9:30 AM EDT With: Where: [facility] Invalid Interpretation Code [address], [address] [place] [address]- \.br \ Monday 2:15 PM EST \.br\ With: Haider Hickman MD\.br\ Where: [facility] Medicine Office/Clini c Noteon 03-26-2024 Family Medicine [...] years., Suppl (more content not included)... Normal [facility] Comment on above: Result Comment: Elec tronically Signed By: Marylou SCHUSTER, Haider Bee\.br\Date and Time Signed: 03/26/24 [...] numbers. This can be done either in [place] (U.[place] or metric measurements. Note that charts and online BMI calculators are available to help you find your BMI quickly and easily without having to do these calculations yourself. To calculate your BMI in [place] ([place] measurements: 1. Measure your weight in [...] for Disease Control and Prevention: www.cdc.gov ? [place] Heart Association: www.heart.org ? National Heart, Lung, and Blood [place]: www.nhlbi.nih.gov Summary ? Body mass index (BMI) is a number that is calculated from a person's weight and height. ? BMI may help estimate how much of a person's weight is composed of fat. BMI can help identify those who may be at higher risk for certain medical problems. ? BMI can be measured using [place]ian measurements or metric measurements. ? BMI charts are used to identify whether you are underweight, normal weight, overweight, or obese. This information is not intended to replace advice given to you by your health care provider. Make sure you discuss any questions you have with your health care provider. Document Revised: 06/17/2020 Document Reviewed: 04/24/2020 [employer] Patient Education ? 2022 [employer] [facility]ona 03-19-2024 CNPN Telephone (PAINMN) DONG WHITMORE ([id number]) 1950 M Date Time Provider Department 03/19/24 HERBERTH ARAUJO During your visit today, we recorded the following information about you: Emilee So, DENISE 03/19/2024 1:32 PM Signed Spoke with patient at request of clinic scheduler as patient has questions about referral to infectious disease. Patient states that he spoke with his PCP, Dr. Hickman ([phone]) who spoke with Dr. Vega in Infectious disease at [facility]. Dr. Hickman ordered lab work at [...] Status:Closed by EMILEE SO on 03/21/24 Normal [facility] BMPon 03-08-2024 Anion gap [Moles/Vol] 14 mmol/L Normal 6-16 [facility] Comment on above: Performed By: #### 2 [id number] #### [facility] [address] [place] [address] Calcium [Mass/Vol] 9.4 mg/dL Normal 8.9-11.1 [facility] Comment on above: Performed By: #### 2 [id number] #### [facility] [address] [place] [address] Chloride [Moles/Vol] 104 mmol/L Normal 101-111 [facility] Comment on above: Performed By: #### 2 [id number] #### [facility] [address] [place] [address] CO2 [Moles/Vol] 24 mmol/L Normal -31 [facility] Comment on above: Performed By: #### 2 449134 #### [facility] [address] [place] [address] Creatinine [Mass/Vol] 1.5 mg/dL High 0.5-1.3 [facility] Comment on above: Performed By: #### 2 407783 #### [facility] [address] [place] [address] Glucose [Mass/Vol] 109 mg/dL Normal 55-199 [facility] Comment on above: Performed By: #### 2 [id number] #### [facility] [address] [place] [address] Potassium [Moles/Vol] 4.2 mmol/L Normal 3.5-5.3 [facility] Comment on above: Performed By: #### 2 005132 #### [facility] [address] [place] [address] Sodium [Moles/Vol] 138 mmol/L Normal 135-145 [facility] Comment on above: Performed By: #### 2 172255 #### [facility] [address] [place] [address] Urea nitrogen [Mass/Vol] 26 mg/dL High 5- [facility] Comment on above: Performed By: #### 2 375430 #### [facility] [address] [place] [address] Urea nitrogen/Creatinine [Mass ratio] 17 No Units Normal 10- [facility] Comment on above: Performed By: #### 2 212247 #### [facility] [address] [place] [address] Consent for Treatmenton 02-08 Consent for Treatment [id number] Normal [facility] OybY1fet 03-08-2024 HbA1c (Bld) [Mass fraction] 6.5 % High <=5.9 [facility] Comment on above: Performed By: #### 7 [id number] #### [facility] [address] [place] [address] eGFRon 03-08-2024 eGFR 48 mL/min/1.73 m2 Low >=59 [facility] Comment on above: Order Comment: Order added by Discern Expert. Performed By: #### 1 [id number] #### [facility] [address] [place] [address] Ambulatory Visit Summaryon 0 03-07-2024 Ambulatory Visit [...] Follow-Up Appointments Monday 2:15 PM EDT With: Marylou SCHUSTER, Haider Bee Where: [facility] Invalid Interpretation Code [address] [place] [address]- \.br \ Monday 9:15 AM EDT \.br\ [...] at this appt He was seen at [facility] and is having drg?? end of [...] Ordered: Basic Metabolic Panel Blood Culture Charcoal [facility] External Ambulatory Referral HgbA1c 2. Stage 3a chronic kidney disease (N18.31: Chronic kidney disease, stage 3a) - Will recheck today. - No concerns Ordered: Basic Metabolic Panel Blood Culture Charcoal [facility] External Ambulatory Referral HgbA1c 3. Stasis ulcer (I83.009: Varicose veins of unspecified lower extremity with ulcer of unspecified site) - Most likely the cause of number 1. - No ulcer today Ordered: Basic Metabolic Panel Blood Culture Charcoal [facility] External Ambulatory Referral HgbA1c 4. Morbid obesity with body mass index of 40.0-44.9 in adult (E66.01: Morbid (severe) obesity due to excess calories) - Diet and exercise advsied Ordered: Basic Metabolic Panel Blood Culture Charcoal Body Mass Index (BMI) documented 3008F Current tobacco non-user 1036F Depression Screening Negative 3352F [facility] External Ambulatory Referral HgbA1c Influenza immunization [...] Ordered: Basic Metabolic Panel Blood Culture Charcoal [facility] [place] External Ambulatory Referral HgbA1c 6. BMI [...] diabetic neuropathy Complex (more content not included)... [facility] Comment on above: Result Comment: Elec tronically Signed By: Marylou SCHUSTER, Haider Sandhu.br\Date and Time Signed: 03/07/24 11:12 EDT Physician Referralon 024 Physician Referral [id number]#1. 00TIFF [facility] CNOVon 02-29-2024 CNOV Office Visit (PAINMN ) DONG WHITMORE ([id number]) 1950 M Date Time Provider Department 02/29/24 1:30 PM HERBERTH ARAUJO PAINMN During your visit today, we recorded the following information about you: Temperature Pulse Blood pressure Weight 97.4 degrees 62/minute 138/73 122.5 kg Height 1.702 m Herberth Araujo MD, PhD 03/18/2024 7:05 PM Signed [facility] Pain Management Department New Patient Consultation Referring Physician: SELF Chief Complaint: Right third toe pain SUBJECTIVE: Dong Whitmore is a 73 year old male with a pertinent past medical history of diabetes who presents to [facility] for the evaluation of right third toe pain. 15-year history of right third toe pain. He notes that over this time the pain has become increasingly severe has caused him significant discomfort and suffering. He has been to many specialists in the [facility]-over the course of the past 15 [...] included)... Normal [facility] Reminderson 02-09-2024 Reminders - From: Vandana Hilton [...] DONG WHITMORE; Caller Number: H , B [phone] Addendum by Sharla Longoria on January 30, 2024 13:43:59 EDT Called pt and advised him of below message. Pt voiced understanding. Pt scheduled for 07/17/24 w/ TERRIE. Will send to [facility] recall for TERRIE. Addendum by Araceli BERMUDEZ MD on January 29, 2024 18:12:03 EDT From: Araceli BERMUDEZ MD To: [facility] Clinical; Sent: 01/29/2024 18:12:03 EDT Subject: RE: f/u after ESWL -Order for Renal US sent to Caller Name: DONG WHITMORE; Caller Number: H , B [phone] Please let the patient know that the [...] months with a kidney ultrasound repeated. Thanks [facility] Addendum by Erica Rossi on January 29, 2024 13:40:04 EDT From: Erica Rossi (EU - Pending Results) To: Araceli BERMUDEZ MD; Sent: 01/29/2024 13:40:04 EDT Subject: FW: f/u after ESWL -Order for Renal US sent to FT Caller Name: DONG WHITMORE; Caller Number: Ray , B [phone] Pt s/p R ESWL 01/03, to get [...] Renal US sent to FT Due Date/Time: 01/25/2024 12:57:00 EDT Caller Name: DONG WHITMORE; Caller Number: H , B [phone] Addendum by Nan Hodges MA on January 19, 2024 12:33:50 EDT From: Nan Hodges MA (EU - Pending Results) To: EU - RUPERT/Cook Messages & Refills; Sent: 01/19/2024 12:33:50 EDT Subject: RE: f/u after ESWL -Order for Renal US sent to FT Due Date/Time: 01/25/2024 12:33:00 EDT Caller Name: CHRISDONG DAVENPORT; Caller Number: Ray , B [phone] Scheduled 01/24/24 @ [facility] From: Elena Robbins To: EU - Pending Results; Sent: 01/08/2024 09:17:33 EDT Subject: f/u after ESWL -Order for Renal US sent to Due Date/Time: 01/17/2024 09:17:00 EDT Caller Name: CHRISDONG DAVENPORT; Caller Number: Ray , B [phone] Pt is PO R ESWL 01/03 - he is to get renal US in 2 weeks and call for results if we don't contact him 1st - order sent to [facility] 02-06-2024 CNPN Telephone (PAMAVN) DONG WHITMORE ([id number]) 1950 M Date Time Provider Department 02/06/24 FRANCOISE SINGLETARY During your visit today, we recorded the following information about you: Lela Hyatt RN 02/06/2024 10:46 AM Signed ----- Message from Francoise Singletary MD sent at 02/05/2024 3:12 PM EDT ----- Do you mind calling him and giving him the number to schedule at [facility] to discuss DRG? I'd suggest seeking an appointment with the following doctors who perform DRG implantation: Dr. Carlisle, Dr. Araujo, Dr. Dan, Dr. Moo Heard and Dr. Kamara may do DRG - I'm not sure. Thanks Lela! ----- Message ----- From: Livia Lester PA-C Sent: 02/05/2024 2:07 PM EDT To: Francoise Singletary MD No one on this side of [facility] that I know of does DRG so, we also send to [facility] I would just have Lela [...] I know who do DRG are at [facility]. How do we refer him there? [...] 02/06/24 Normal [facility] Ksenia 02-05-2024 FRANCHESCA Office Visit (DENICE ) DONG WHITMORE ([id number]) 1950 M Date Time Provider Department 02/05/24 11:30 AM FRANCOISE SINGLETARY During your visit today, we recorded the following information about you: Pulse Blood pressure Weight 80/minute 131/70 124.7 kg Francoise Singletary MD 02/05/2024 3:14 PM Signed [facility] Pain Management Department Consultation Date: February [...] year old (more content not included)... Normal [facility] Renalon 01-26-2024 US Renal Exam Date/Time: [...] Rosenbaum MD Transcribed by: GREGORIO Technologist: HW [facility] Consent for Treatmenton 01-07 Consent for Treatment [id number]#1.0 0TIFF [facility] Consultation Noteon 01-22-20 Consultation Note [id number]#1.0 0TIFF [facility] Consultation Note [id number]#1.0 0TIFF [facility] IntraOperative Documentson 0 01-08-2024 IntraOperative Documents [id number]#1.0 0TIFF [facility] Postoperative Documentson Postoperative Documents [id number]#1. 00TIFF [facility] Consent for Anesthesiaon Consent for Anesthesia [id number]#1. 00TIFF [facility] Discharge Instructionson Discharge Instructions [id number]#1. 00TIFF [facility] IntraOperative Documentson 0 01-05-2024 IntraOperative Documents [id number]#1. 00TIFF Normal [facility] IntraOperative Documents [id number]#1. 00TIFF Normal [facility] Main OR Intraoperative Recor don 01-05-2024 Main OR Intraoperative Record IntraOp Document Type FT Summary Primary Physician: Araceli BERMUDEZ MD Finalized Date/Time: 01/05/24 12:41:56 Pt. Name: ALDO WHITMOREANTHONY Ann/Sex: 1950 Male Med Rec #: [id number] Physician: Araceli BERMUDEZ MD Financial #: [id number] Pt. Type: A Room/Bed: [place] [address] Admit/Disch: 01/04/24 06:41:12 - 01/04/24 12:00:26 Institution: [...] 1 Entry 2 Entry 3 Case Attendee Augustin Paniagua MD, Sim Loja Role Performed Anesthesiologist Surgeon - Primary Cloth Opener Hand - Primary Bird Trapper Time In 01/04/24 09:07:00 01/04/24 09:07:00 01/04/24 [...] Participants AIDAN Chávez MD, Araceli Treadwell, Sim Ling Miller, Laura C Time Out Complete 01/04/24 [...] 1 - Clean Last Modified By: Sim Lnig Terry T 01/04/24 09:56:39 01/04/24 09:56:29 General [...] and tissue Entry 1 Skin Integrity Intact, [place], Warm, and Skin (more content not included)... Normal [facility] Preoperative Documentson Preoperative Documents [id number]#1. 00TIFF Normal [facility] Progress Note-Physicianon Progress Note-Physician Patient: DONG WHITMORE Age: 73 years Sex: Male : 1950 Associated Diagnoses: None Author: Arlen Mancia Jr, DO Postoperative Information Postoperative disposition: [...] meets criteria ( To home ). Normal [facility] Comment on above: Result Comment: Elec tronically Signed By: Arlen Mancia Jr, DO\.br\Date and Time Signed: 01/05/24 10:01 EDT Progress Note-Physician Patient: DONG WHITMORE Age: 73 years Sex: Male : 1950 Associated Diagnoses: None Author: Arlen Mancia Jr, DO Preoperative Information Anesthesia Preop [...] Problems Vitamin D deficiency / SNOMED CT 00278165 / Confirmed Urgency of urination / SNOMED CT 518546448 / Confirmed Type 2 diabetes mellitus with hyperglycemia, without long-term current use of insulin / ICD-10-CM E11.65 / Confirmed Type 2 diabetes mellitus with peripheral vascular disease / SNOMED CT 161978564 / Confirmed linked DM with PVD per OP CDI policy. Type 2 diabetes mellitus with stage 3a chronic kidney disease and hypertension / SNOMED CT 631942822 / Confirmed linked DM with CKD and HTN per OP CDI policy. 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 Shoulder pain / SNOMED CT 96186422 / Confirmed Renal mass / SNOMED CT 554240928 / Confirmed Psoriasis / SNOMED CT 71718660 / Confirmed PVD (peripheral vascular disease) / SNOMED CT 6067909541 / Confirmed OA (osteoarthritis) / SNOMED CT 5958033094 / Confirmed ULISES (obstructive sleep apnea) / SNOMED CT 376518008 / Confirmed SANTANA (nonalcoholic steatohepatitis) / SNOMED CT 6101887533 / Confirmed Lumbar spondylosis / SNOMED CT 850170604 / Confirmed noted in 10/16/2023 Pain Management Consult Note page 3. added per OP CDI policy. Impotence / SNOMED CT 8524833485 / Confirmed History of kidney stones / SNOMED CT 8116611660 / Confirmed Hiatal hernia / SNOMED CT 829488073 / Confirmed GERD (gastroesophageal reflux disease) / SNOMED CT 925889329 / Confirmed Nerves / SNOMED CT 6561814989 / Confirmed Primary hypertension / SNOMED CT 80222473 / Confirmed Anticoagulated / SNOMED CT 692020889 / Confirmed Complex renal cyst / SNOMED CT 3327357662 / Confirmed Chronic painful diabetic neuropathy / SNOMED CT 5322488057 / Confirmed noted in 10/16/2023 Pain Management Consult Note page 3. added per OP CDI policy. Pain, foot, right, chronic / SNOMED CT 6329620031 / Confirmed noted in 10/16/2023 Pain Management Consult Note page 3. added per OP CDI policy. Chronic bilateral low back pain without sciatica / SNOMED CT 667274728 / Confirmed Stage 3a chronic kidney disease / SNOMED CT 9572120094 / Confirmed Excessive dietary caloric intake / SNOMED CT 687997013 / Confirmed Morbid obesity with body mass index of 40.0-44.9 in adult / SNOMED CT 1856157480 / Confirmed BPH with obstruction/lower urinary tract symptoms / SNOMED CT 1241388916 / Confirmed Anxiety / SNOMED CT 70079072 / Confirmed Allergic rhinitis / SNOMED CT 659546144 / Confirmed Acquired absence of right great toe / SNOMED CT 602803278 / Confirmed added per 07/24/2023 query response. Resolved: Neuropathy / SNOMED CT 5861919787 idiopathic chronic Resolved: Hyperlipidemia / SNOMED CT 74207712 Resolved: Depressed mood / SNOMED CT 137332806 Resolved: Amputation of toe of right foot / ICD-10-CM S98.131A Resolved: BPH - benign prostatic hyperplasia / SNOMED CT 9647050879 Resolved: Anxiety disorder / SNOMED CT 362588865 Canceled: Microscopic hematuria / SNOMED CT 864841080 Canceled: Kidney stone / IMO 67733 Canceled: Hypertension / SNOMED CT 6155172329 Canceled: HLD (hyperlipidemia) / SNOMED CT 13389976 Canceled: Glycosuria / SNOMED CT 79669119 Canceled: Diabetes / SNOMED CT 826300756 Histories Procedure history: TOE AMPUTATION on 11/16/2018 at 68 Years. Cysto, Lt retrogrades, Lt stent, Ureteral cath, Lt ESWL ([id number]) on 06/07/2018 at 67 Years. Comments: 06/21/2019 14:34 EDT - Marilynn Zhang MA Cysto, Lt retr (more content not included)... Normal [facility] Comment on above: Result Comment: Elec tronically Signed By: rAlen Mancia Jr, DO\chanda\Date and Time Signed: 01/05/24 09:04 EDT XR [...] mGy = na DAP = na Normal [facility] Capillary Glucose POCon 12-08 Glucose [Mass/Vol] 133 mg/dL High 55-99 [facility] Comment on above: Performed By: #### 2 [id number] #### [facility] Laboratory [address] [place] [address] Consent for Procedure/Surger yon 01-04-2024 Consent for Procedure/Surgery [id number]#1. 00TIFF [facility] Consent for Treatmenton 12-08 Consent for Treatment [id number]#1.0 0TIFF [facility] Discharge Instructionson Discharge Instructions DONG WHITMORE [...] Araceli BERMUDEZ MD Where: [facility] Invalid Interpretation Code [address] [place] [address]- \.br \ Monday 9:30 AM EDT \.br\ With:\.br\ Where: [facility] [place] [facility] Comment on above: Result Comment: Elec tronically Signed By: Ector WALKER, Rakel Gallagher.cyrus\Date and Time Signed: 01/04/24 10:37 EDT H&P Updateon 01-04-2024 H&P Update [id number]#1. 00TIFF Normal [facility] Inpatient Patient Summaryon 01-04-2024 Inpatient Patient Summary [address] [address] [facility] Clinical Discharge Instructions PERSON INFORMATION Name: DONG WHITMORE [facility]#:[id number] PHYSICIANS Admitting Physician: Araceli BERMUDEZ MD Attending Physician: Araceli BERMUDEZ MD PCP: Haider Hickman MD Discharge Diagnosis: Comment: PATIENT EDUCATION INFORMATION Instructions: Lithotripsy, Care After Medication Leaflets: Follow up: With: Address: When: Araceli BERMUDEZ [address] [place] [address], [address], [place] [id number] Business (1) Comments: Please call my office [...] for follow-up With: Address: When: [place] [address] [facility] [address] Business (1) Type Location Start Finish State URO Office Visit [facility] [place] 03/13/2024 9:45 AM 03/13/2024 10:00 AM Confirmed FM Open [facility] [place] 03/26/2024 2:15 PM 03/26/2024 2:30 PM Confirmed FM Medicare Wellness Subsequent [facility] FM [place] 05/13/2024 9:30 AM 05/13/2024 10:30 AM Confirmed URO Office Visit [facility] 11/06/2024 10:30 AM 11/06/2024 10:45 AM Confirmed MEDICATION LIST New Medications [id number], [address], [place] [id number], [phone] acetaminophen-hydrocod one (acetaminophen-hydroco done 325 mg-5 mg [...] Tablets By Mouth every day. Comment: Macario [facility] Main OR PACU I Recordon 12-08 Main OR PACU I Record PACU Phase I Document Type FT Summary Primary Physician: Araceli BERMUDEZ MD Finalized Date/Time: 01/04/24 10:17:21 Pt. Name: DONG WHITMORE Marissa/Sex: 1950 Male Med Rec #: [id number] Physician: Araceli BERMUDEZ MD Financial #: [id number] Pt. Type: A Room/Bed: [facility] Admit/Disch: 01/04/24 06:41:12 - Institution: Case Times [...] By: Sangita Ross RN 01/04/24 10:17 Normal [facility] Main OR PACU II Recordon Main OR PACU II Record PACU Phase II Document Type FT Summary Primary Physician: Araceli BERMUDEZ MD Finalized Date/Time: 01/04/24 12:01:26 Pt. Name: HAIM DONG A /Sex: 1950 Male Med Rec #: [id number] Physician: Araceli BERMUDEZ MD Financial #: [id number] Pt. Type: Room/Bed: [place] [address] Admit/Disch: 01/04/24 06:41:12 - 01/04/24 12:00:26 Institution: [...] By: Rakel Barney RN 01/04/24 12:01 Normal [facility] Main OR Preoperative Recordo n 01-04-2024 Main OR Preoperative Record PreOp Document Type FT Summary Primary Physician: Araceli BERMUDEZ MD Finalized Date/Time: 01/04/24 09:57:43 Pt. Name: DONG WHITMORE/Sex: 1950 Male Med Rec #: [id number] Physician: Araceli BERMUDEZ MD Financial #: [id number] Pt. Type: A Room/Bed: [facility] Admit/Disch: 01/04/24 06:41:12 - Institution: Case Times [...] Signed By: Sim Ling 01/04/24 09:57 Normal [facility] Monitor Recordon 01-04-2024 Monitor Record [id number]#1. 00TIFF Normal [facility] Operative Reporton Operative Report Patient: DONG [...] placed per urethra and a well-lubricated 22 Taiwanese is urethroscope with 30 degree lens then [...] pyelogram was then performed utilizing a 6 Taiwanese open-ended ureteral catheter. The ureter is normal [...] removed and he was transferred to the [place] and then back to PACU in satisfactory condition, stable vital signs. Plan to be for discharge home with plans for a follow-up kidney ultrasound within the next couple weeks. Prescription sent to pharmacy for doxycycline for antibiotic prophylaxis as well as 7 pills of [place] 5/325. She was in agreement with the plan. . Estimated Blood Loss: 0 ml. Complications: None. Anesthesia type: General. Normal [facility] Comment on above: Result Comment: Elec tronically Signed By: Araceli BERMUDEZ MD\.br\Date and Time Signed: 01/04/24 10:09 EDT Outpatient Surgery Discharge Instructionon 01-04-2024 Outpatient Surgery Discharge Instruction [place] [id number] Patient Discharge Instructions PERSON INFORMATION Name: DONG WHITMORE [place] Date of : 1950 Current Date: 01/04/2024 [...] NEAREST EMERGENCY ROOM OR CALL 911 IHAIM STEPHEN A, have received the attached patient education materials/instructions and have verbalized understanding: May we do a follow up call? Yes No I was present when discharge instructions were given Patient Signature Date Clinican/Nurse Signature ___ Date Follow up: With: Address: When: Araceli BERMUDEZ [address], [address], [facility] [address] [place] [address] Business (1) Comments: Please call my office [...] for follow-up With: Address: When: [place] [address] [facility] [address] Business (1) Type Location Start Finish State URO Office Visit [facility] 03/13/2024 9:45 AM 03/13/2024 10:00 AM Confirmed FM Open [facility] [place] 03/26/2024 2:15 PM 03/26/2024 2:30 PM Confirmed FM Medicare Wellness Subsequent [facility] FM [place] 05/13/2024 9:30 AM 05/13/2024 10:30 AM Confirmed URO Office Visit [facility] [place] 11/06/2024 10:30 AM 11/06/2024 10:45 AM Confirmed [...] serve you. Thank you for choosing [facility] HERE ARE THE MEDICATION CHANGES THAT OCCURRED DURING YOUR HOSPITAL STAY New Medications [id number], [address], [place] [id number], [phone] acetaminophen-hydrocod one (acetaminophen-hydroco done 325 mg-5 mg [...] care p (more content not included)... Normal [facility] PT - Progress Noteson 2023 PT - Progress Notes [id number]#1.0 0TIFF [facility] Patient Education - Texton 0 01-04-2024 [...] these instructions at home: Medicines ? Take rwjj-bjg-mcozrax and prescription medicines only as told by [...] forming. ? (more content not included)... Normal [facility] Physician Referralon 024 Physician Referral [id number]#1. 00TIFF Normal [facility] Physician Referral [id number]#1. 00TIFF Normal [facility] BMPon 12-29-2023 Anion gap [Moles/Vol] 13 mmol/L Normal 6-16 [facility] Comment on above: Performed By: #### 2 332518, 1961037, 43934123, 32064968 #### [facility] [address] [place] [address] Calcium [Mass/Vol] 9.1 mg/dL Normal 8.9-11.1 [facility] Comment on above: Performed By: #### 2 330752, 0491504, 26078988, 62059779 #### [facility] [address] [place] [address] Chloride [Moles/Vol] 106 mmol/L Normal 101-111 [facility] Comment on above: Performed By: #### 2 058573, 9832531, 59029755, 19547100 #### [facility] [address] [place] [address] CO2 [Moles/Vol] 25 mmol/L Normal 21-31 [facility] Comment on above: Performed By: #### 2 930866, 0916079, 37148331, 73922957 #### [facility] [address] [place] [address] Creatinine [Mass/Vol] 1.2 mg/dL Normal 0.5-1.3 [facility] Comment on above: Performed By: #### 2 546937, 2565961, 46004882, 57403445 #### [facility] [address] [place] [address] Glucose [Mass/Vol] 145 mg/dL Normal 55-199 [facility] Comment on above: Performed By: #### 2 251391, 6717352, 68120236, 43123964 #### [facility] [address] [place] [address] Potassium [Moles/Vol] 3.8 mmol/L Normal 3.5-5.3 [facility] Comment on above: Performed By: #### 2 140029, 7519578, 39134683, 28287144 #### [facility] [address] [place] [address] Sodium [Moles/Vol] 140 mmol/L Normal 135-145 [facility] Comment on above: Performed By: #### 2 682138, 6287587, 38045054, 91622078 #### [facility] [address] [place] [address] Urea nitrogen [Mass/Vol] 25 mg/dL High 5-21 [facility] Comment on above: Performed By: #### 2 740399, 0249045, 77084840, 67172411 #### [facility] [address] [place] [address] Urea nitrogen/Creatinine [Mass ratio] 21 No Units High 10-20 [facility] Comment on above: Performed By: #### 2 113286, 7293553, 56522620, 06558880 #### [facility] [address] [place] [address] CBC w/ Auto Diffon 4 Basophils/100 WBC (Bld) 0.5 % Normal 0.0-2.0 [facility] Comment on above: Performed By: #### 2 612202, 4131264, 58728718, 94732142 #### [facility] [address] [place] [address] Basophils/Leukocytes Auto (Bld) [Pure # fraction] 0.0 E9/L Normal 0.0-0.2 [facility] Comment on above: Performed By: #### 2 973585, 8285949, 43711370, 81457548 #### [facility] [address] [place] [address] Eosinophils (Bld) [#/Vol] 0.3 E9/L Normal 0.0-0.5 [facility] Comment on above: Performed By: #### 2 230645, 1380431, 03933946, 74632977 #### [facility] [address] [place] [address] Eosinophils/100 WBC (Bld) 5.7 % Normal 0.0-8.0 [facility] Comment on above: Performed By: #### 2 684137, 2650030, 78471551, 90312213 #### [facility] [address] [place] [address] Erythrocyte distribution width (RBC) [Ratio] 14.6 % High 10.9-14.2 [facility] Comment on above: Performed By: #### 2 836137, 2657822, 95478229, 54771630 #### [facility] [address] [place] [address] Hematocrit (Bld) [Volume fraction] 38.3 % Normal 37.7-49.0 [facility] Comment on above: Performed By: #### 2 350760, 0478673, 26666516, 32044420 #### [facility] [address] [place] [address] Hemoglobin (Bld) [Mass/Vol] 12.8 g/dL Low 13.5-17.5 [facility] Comment on above: Performed By: #### 2 784191, 8916533, 09638172, 87811190 #### [facility] [address] [place] [address] Lymphocytes (Bld) [#/Vol] 0.9 E9/L Low 1.0-4.0 [facility] Comment on above: Performed By: #### 2 067665, 9389972, 19456657, 47258197 #### [facility] [address] [place] [address] Lymphocytes/100 WBC (Bld) 17.1 % Normal 14.0-50.0 [facility] Comment on above: Performed By: #### 2 570190, 6909106, 12222346, 28423169 #### [facility] [address] [place] [address] MCH (RBC) [Entitic mass] 28.1 pg Normal 27.0-34.0 [facility] Comment on above: Performed By: #### 2 044035, 5539439, 36273476, 65391437 #### [facility] [address] [place] [address] MCHC (RBC) [Mass/Vol] 33.4 g/dL Normal 31.4-36.0 [facility] Comment on above: Performed By: #### 2 659003, 6558878, 61809205, 43806798 #### [facility] [address] [place] [address] MCV (RBC) [Entitic vol] 84.1 fL Normal 80.0-100.0 [facility] Comment on above: Performed By: #### 2 259594, 2533626, 52217676, 12464833 #### [facility] [address] [place] [address] Monocytes (Bld) [#/Vol] 0.4 E9/L Normal 0.2-1.0 [facility] Comment on above: Performed By: #### 2 572647, 7300542, 98989239, 99857479 #### [facility] [address] [place] [address] Neutrophils (Bld) [#/Vol] 3.9 E9/L Normal 2.0-7.5 [facility] Comment on above: Performed By: #### 2 265854, 9294419, 26008839, 43116266 #### [facility] [address] [place] [address] Neutrophils/100 WBC (Bld) 69.6 % Normal 36.0-75.0 [facility] Comment on above: Performed By: #### 2 168847, 1083151, 83520193, 80407169 #### [facility] [address] [place] [address] Platelet 178.0 E9/L Normal 150.0-500.0 [facility] Comment on above: Performed By: #### 2 588983, 7279196, 89974852, 63161702 #### [facility] [address] [place] [address] Platelet mean volume (Bld) [Entitic vol] 8.4 fL Normal 6.4-10.8 [facility] Comment on above: Performed By: #### 2 273141, 3865537, 99038241, 38083751 #### [facility] [address] [place] [address] RBC (Bld) [#/Vol] 4.6 E12/L Normal 4.3-5.9 [facility] Comment on above: Performed By: #### 2 652878, 3915925, 25910015, 55044427 #### [facility] [address] [place] [address] WBC corrected for nucl RBC Auto (Bld) [#/Vol] 5.5 E9/L Normal 4.0-11.0 [facility] Comment on above: Performed By: #### 2 079956, 4354835, 24143011, 86748048 #### [facility] [address] [place] [address] Consent for Treatmenton 12-08 Consent for Treatment [id number]#1.0 0TIFF Normal [facility] PT & PTTon 12-29-2023 aPTT Coag (PPP) [Time] 35.7 second(s) Normal 25.1-36.5 [facility] Comment on above: Result Comment: Para [...] the same coagulation reagent and instrumentation as [facility]. Currently there are no coagulation studies available worldwide for children to 14 days, and no normal ranges. Heparin therapeutic range (represented by Anti-Factor Xa activity of 0.2 - 0.4 U/mL) corresponds to PTT of 56.6 - 109.0 sec. Performed By: #### 2 063385, 7190323, 68787839, 34956698 #### [facility] [address] [place] [address] INR Coag (PPP) [Relative time] 1.23 {INR} Invalid Interpretation Code [facility] Comment on above: Result Comment: INR results are specifically intended to assess patients stabilized on long-term Anticoagulation therapy suggested INR?s ?Less Intensive Anticoagulation? 2.0 ? 3.0 Conventional Range 3.0 ? 4.5 Performed By: #### 2 989830, 8258500, 57103589, 27188047 #### [facility] [address] [place] [address] PT Coag (PPP) [Time] 13.8 second(s) High 9.4-12.5 [facility] Comment on above: Result Comment: 15 [...] ranges were obtained from a study by abril Wray al. prepared from 1437 samples obtained at 7 different centers using the same coagulation reagent and instrumentation as [facility]. Currently there are no coagulation studies available worldwide for children to 14 days, and no normal ranges. Performed By: #### 2 856180, 3735103, 83749042, 01500727 #### [facility] [address] [place] [address] UA with Cult Rflxon 12-29-19 24 Color (U) Light-Yellow Normal Yellow [facility] Comment on above: Result Comment: Micr oscopic readings are only performed on those samples that meet specific criteria set forth by [facility]. Performed By: #### 4 [id number] ####[facility] [address] [place] [address] Glucose (U) [Mass/Vol] Negative Normal Negative [facility] Comment on above: Performed By: #### 4 [id number] ####[facility] [address] [place] [address] Ketones Ql (U) Negative Normal Negative [facility] Comment on above: Performed By: #### 4 [id number] ####[facility] [address] [place] [address] UA Blood Negative Normal Negative [facility] Comment on above: Performed By: #### 4 [id number] ####[facility] [address] [place] [place] [address] UA Clarity Clear Normal Clear [facility] Comment on above: Performed By: #### 4 [id number] ####[facility] [address] [place] [address] UA Leuk Est Negative Normal Negative [facility] Comment on above: Performed By: #### 4 [id number] ####[facility] [address] [place] [address] UA Nitrite Negative Normal Negative [facility] Comment on above: Performed By: #### 4 [id number] ####[facility] [address] [place] [address] UA pH 6.5 Invalid Interpretation Code 5.0-9.0 [facility] Comment on above: Performed By: #### 4 [id number] ####[facility] [address] [place] [address] UA Protein Trace Abnormal Negative [facility] Comment on above: Performed By: #### 4 [id number] ####[facility] [address] [place] [address] UA Spec Grav 1.021 Invalid Interpretation Code 1.005-1.030 [facility] Comment on above: Performed By: #### 4 [id number] ####[facility] [address] [place] [address] UA Urobilinogen Negative Normal Negative [facility] Comment on above: Performed By: #### 4 [id number] ####[address] [place] [address] Urobilinogen (U) [Mass/Vol] Negative Normal Negative [facility] Comment on above: Performed By: #### 4 [id number] ####[facility] [address] [place] [address] UA Spec Desc Clean Catch Normal [facility] Comment on above: Performed By: #### 4 [id number] ####[facility] [address] [place] [address] XR Chest 2 Viewson XR Chest 2 Views Exam Date/Time: 12/29/2023 09:35 EDT Reason for Exam: P.A.T. Report [facility] [phone] IMPRESSION: No acute infiltrates or effusions, no change since previous studies. CLINICAL HISTORY: P.A.T. EXAMINATION: XR Chest 2 Views COMPARISON: Chest x-ray from 12/02/2015 FINDINGS: The cardiac silhouette is enlarged, similar to prior studies The lungs are free of infiltrates effusions or consolidations. There calcified granulomas in the right lung, similar to prior studies. There are no acute osseous changes. Ordering Provider: Arlen Mancia FINAL REPORT Dictated: 12/29/2023 10:27 am Lukasz Denny MD, V. Signed (Electronic Signature): 12/29/2023 10:27 am Signed by: Lukasz Denny MD, V. Transcribed by: GREGORIO Technologist: ANDREW Technical Comments Radiation Dose: Ka,r in mGy = na DAP = na Normal [facility] eGFRon 12-29-2023 eGFR 63 mL/min/1.73 m2 Normal >=59 [facility] Comment on above: Order Comment: Order added by Discern Expert. Performed By: #### 2 154628, 1087308, 31770371, 92416128 #### [facility] [address] [place] [address] Family Medicine Office/Clini c Noteon 12-28-2023 Family [...] Exam: UTD Last A1C: 7.1% 12/11/23 ( Tondra Mapus) Statin: simvastatin 40mg Follow up for Mental [...] (12/05/2016), ysto, (more content not included)... Normal [facility] Comment on above: Result Comment: Elec tronically Signed By: Haider Hickman MD\.br\Date and Time Signed: 12/28/23 09:51 EDT Physician Orderon 12-28-2023 Physician Order [id number]#1.0 0TIFF Normal [facility] Ambulatory Visit Summaryon 0 12-26-2023 Ambulatory [...] SCHUSTER, Araceli Treadwell Where: [facility] Invalid Interpretation Code [address] [place] [address]- \.br \ Monday 9:30 AM EDT \.br\ With:\.br\ Where: [facility] Family Medicine [facility] CMPon 12-26-2023 Albumin [Mass/Vol] 4.2 g/dL Normal 3.3-5.0 [facility] Comment on above: Performed By: #### 2 147559, 8740722, 80745827, 9010442 ####[facility] [address] [place] [address] Albumin/Globulin (S) [Mass conc ratio] 1.6 Normal 1.1-2.2 [facility] Comment on above: Performed By: #### 2 759692, 2383507, 50025933, 0645287 ####[facility] [address] [place] [address] ALP [Catalytic activity/Vol] 67 Int._Unit/L Normal 21-98 [facility] Comment on above: Performed By: #### 2 681946, 9407316, 96223845, 4376576 ####[facility] [address] [place] [address] ALT No additional P-5'-P [Catalytic activity/Vol] 20 Int._Unit/L Normal 6-46 [facility] Comment on above: Performed By: #### 2 954959, 9337615, 33316901, 3948747 ####[facility] [address] [place] [address] Anion gap [Moles/Vol] 10 mmol/L Normal 6-16 [facility] Comment on above: Performed By: #### 2 877679, 3357891, 71604198, 0427724 ####[address] [address] AST [Catalytic activity/Vol] 21 Int._Unit/L Normal 5-43 [facility] Comment on above: Performed By: #### 2 367530, 3986890, 30485444, 7163975 ####[facility] [address] [place] [address] Bilirubin [Mass/Vol] 0.6 mg/dL Normal 0.0-1.1 [facility] Comment on above: Performed By: #### 2 829200, 6078076, 85094913, 7712544 ####[facility] [address] [place] [address] Calcium [Mass/Vol] 9.3 mg/dL Normal 8.9-11.1 [facility] Comment on above: Performed By: #### 2 353629, 1205032, 96470768, 8589049 ####[facility] [address] [place] [address] Chloride [Moles/Vol] 105 mmol/L Normal 101-111 [facility] Comment on above: Performed By: #### 2 105158, 7818397, 98349853, 9744013 ####[facility] [address] [place] [address] CO2 [Moles/Vol] 27 mmol/L Normal 21-31 [facility] Comment on above: Performed By: #### 2 130018, 5372180, 58835152, 0309078 ####[facility] [address] [place] [address] Creatinine [Mass/Vol] 1.3 mg/dL Normal 0.5-1.3 [facility] Comment on above: Performed By: #### 2 995025, 5208925, 72428322, 7833477 ####[facility] [address] [place] [address] Globulin (S) [Mass/Vol] 2.6 g/dL Normal 1.4-4.0 [facility] Comment on above: Performed By: #### 2 676187, 1365907, 55688166, 2034690 ####[address] [address] Glucose [Mass/Vol] 135 mg/dL Normal 55-199 [facility] Comment on above: Performed By: #### 2 674285, 2165627, 16223097, 3739916 ####[address] [address] Potassium [Moles/Vol] 4.1 mmol/L Normal 3.5-5.3 [facility] Comment on above: Performed By: #### 2 146726, 3670090, 64295314, 5838787 ####[facility] [address] [place] [address] Protein [Mass/Vol] 6.8 g/dL Normal 6.0-7.8 [facility] Comment on above: Performed By: #### 2 780320, 1919691, 50036261, 9960465 ####[address] [place] [address] Sodium [Moles/Vol] 138 mmol/L Normal 135-145 [facility] Comment on above: Performed By: #### 2 155248, 6258915, 59589222, 4192880 ####[facility] [address] [place] [address] Urea nitrogen [Mass/Vol] 27 mg/dL High 5-21 [facility] Comment on above: Performed By: #### 2 927617, 2069887, 30948570, 4015118 ####[facility] [address] [place] [address] Urea nitrogen/Creatinine [Mass ratio] 21 No Units High 10-20 [facility] Comment on above: Performed By: #### 2 753295, 3642819, 51874060, 8197903 ####[facility] [address] [place] [address] Lipid Panelon 12-26-2023 Cholesterol [Mass/Vol] 118 mg/dL Low 120-200 [facility] Comment on above: Performed By: #### 2 754447, 5144880, 48107486, 1554991 ####[facility] [address] [place] [address] Cholesterol in HDL [Mass/Vol] 33 mg/dL Invalid Interpretation Code [facility] Comment on above: Result Comment: '>= 60 LOW RISK' '<= 40 HIGH RISK' Performed By: #### 2 916095, 6801789, 99433144, 8866247 ####[facility] [address] [place] [address] Cholesterol in LDL [Mass/Vol] 57 mg/dL Normal <=129 [facility] Comment on above: Performed By: #### 2 786257, 9310227, 92028560, 2729012 ####[facility] [address] [place] [address] Cholesterol in VLDL [Mass/Vol] 45 mg/dL High 7-40 [facility] Comment on above: Performed By: #### 2 273274, 4693552, 85621014, 2843946 ####[facility] [address] [place] [address] Triglyceride [Mass/Vol] 225 mg/dL High <=149 [facility] Comment on above: Performed By: #### 2 074603, 4465225, 67062516, 0110364 ####[facility] [address] [place] [address] U Microalbon 12-26-2023 Albumin DL <= 20 mg/L (U) [Mass/Vol] 5.8 mg/dL High 0.0-1.9 [facility] Comment on above: Performed By: #### 1 375470708, 85736929 ####[facility] [address] [place] [address] U Protein/Creat Ratioon 12-07 Protein/Creatinine (U) [Ratio] 20.90 mg/gm Cr Normal .00-200.00 [facility] Comment on above: Performed By: #### 1 943804725, 69127846 ####[address] [address] U Creatinine 99.4 mg/dL Invalid Interpretation Code [facility] Comment on above: Performed By: #### 1 078891594, 67608793 ####[facility] [address] [place] [address] Ur Total Protein 20.8 mg/dL Invalid Interpretation Code [facility] Comment on above: Performed By: #### 1 477527916, 13106305 ####[address] [address] Vit B12on 12-26-2023 Cobalamin (Vitamin B12) [Mass/Vol] 348 pg/mL Normal 50-1500 [facility] Comment on above: Performed By: #### 2 204605, 0019539, 62122595, 0673623 ####[address] [place] [address] eGFRon 12-26-2023 eGFR 57 mL/min/1.73 m2 Low >=59 [facility] Comment on above: Order Comment: Order added by Discern Expert. Performed By: #### 2 408267, 3461217, 29122723, 5888499 ####[facility] [address] [place] [address] Pre-Visit Planningon 024 Pre-Visit Planning - From: Ceci Yu To: Marylou SCHUSTER, Haider Bee; Sent: 12/20/2023 09:56:36 EDT Subject: Pre-Visit Planning Due Date/Time: 12/20/2023 09:56:00 EDT Caller Name: DONG WHITMORE; Caller Number: H , B [phone] Nm Dr. Hickman. During a pre-visit planning chart [...] feel free to contact me at extension [phone]. Thank you! 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 Normal [address] [facility] Consultation Noteon 12-08-19 Consultation Note [id number]#1.0 0TIFF Normal [facility] RAD - MISCon 11-14-2023 RAD - MISC [id number]#1.0 0TIFF Normal [facility] RAD - Ultrasound Reporton RAD - Ultrasound Report [id number]#1.0 0TIFF Normal [facility] RAD - Ultrasound Report [id number]#1.0 0TIFF Normal [facility] RAD - MISCon 10-30-2023 RAD - MISC [id number]#1.00 TIFF Normal [facility] RAD - MRI Reporton RAD - MRI Report [id number]#1.00 TIFF Normal [facility] Screenson 10-20-2023 Screens [id number]#1. 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 Your Care Team Attending Physician - AIDAN SCHUSTER, Araceli Treadwell Primary Care Physician - Marylou SCHUSTER, Haider Bee This Is Your Medications [...] Follow-Up Appointments 2023 1:00 PM EDT With: Marylou SCHUSTER, Haider Bee Where: [facility] [place] Invalid Interpretation Code [address] [place] [address]- \.br \ Monday 10:30 AM EST \.br\ [...] ? 8 oz (237 mL) of milk, cynmhwf-lkadgxgqwzmj-m airy milk, and calcium-fortifiedfruit juice. Calcium-fortified means [...] Spinach (cooked), rhubarb, beets, sweet potatoes, and Greenlandic chard. ? Peanuts. ? Potato chips, czech fries, and baked potatoes with skin on. ? Nuts and nut products. ? Chocolate. ? If you regularly take a diuretic medicine, make sure to eat at least 1 or 2 servings of fruits or vegetables that are high in potassium each day. These include: ? Avocado. ? Banana. ? [place], prune, carrot, or tomato juice. ? Baked [...] fish oil, or vitamin B6. ? Take zpsj-mmr-imdbtbb and prescription medicines only as told by your health care provider. These include supplements. What foods sh (more content not included)... Normal [facility] Reminderson 10-18-2023 Reminders - From: Roya Álvarez To: PREM Bermudez; Sent: 10/18/2023 15:39:39 EST Show up: 08/18/2024 15:39:00 EST Subject: Renal US Due Date/Time: 09/17/2024 15:39:00 EST Pt needs scheduled for TERRIE prior to 1 year appointment. Being done at [facility]. order placed. Normal [facility] Urology Office/Clinic Noteon 10-18-2023 Urology Office/Clinic [...] with voice recognition artificial intelligence software, specifically Sulia, Perio[employer]al and or [employer]sl[employer]. Substitutions may have occurred due to the [...] (N28.1: Cyst of kidney, acquired) Renal US 11/02/22 shows 1 cm hypoechogenic lesion of the [...] Information AIDAN SCHUSTER, Araceli Treadwell, URL [address] [place], [place] [id number]- Additional Instructions: 1 year w/ renal US [...] benign pr (more content not included)... Normal [facility] Comment on above: Result Comment: Elec [...] recent A1c level, as measured by his lamina searcher, was 6.9%. Review of Systems PHQ Score [...] with voice recognition artificial intelligence software, specifically Sulia, PerioSeal and or [employer]sl[employer]. Substitutions may have occurred due to the inherent limitations of voice recognition and artificial intelligence software. ATTESTATION: Documentation services were performed after patient or guardian consented to allow [email or web address] to record this visit. HEMANTH command and control specialist and provider reviewed before signing. HEMANTH: [...] under fluo (more content not included)... Normal [facility] Comment on above: Result Comment: Elec [...] SCHUSTER, Araceli Treadwell Where: [facility] Invalid Interpretation Code [address] [place] [address]- \.br \ Monday 9:30 AM EDT \.br\ With:\.br\ Where: [facility] Consultation Noteon 09-18-20 23 Consultation Note [id number]#1.0 0TIFF Normal [facility] A1C with Estimated Average G natalee 09-11-2023 HbA1c (Bld) [Mass fraction] 6.900 % High 4.3-5.6 % [facility] 20x200 Other HbA1c (Bld) [Mass fraction] 151 mg/dL [facility] 20x200 Other Glucose [Mass/Vol] 151 mg/dL Normal [facility] Comment on above: Order Comment: Reaso n for Exam 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 Performed By: #### A 1C [facility] eA #### [address] HbA1c (Bld) [Mass fraction] 6.9 % High 4.3-5.6 [facility] Comment on above: Order Comment: Reaso n for Exam Type 2 diabetes mellitus with diabetic chronic kidney diseas Result Comment: Incr eased risk for diabetes: 5.7 - 6.4 diabetes: >6.4 glycemic control for adults with diabetes: <7.0 Performed By: #### A 1C [facility] eA #### [address] Glucose - FINGER STICKon Glucose [Mass/Vol] 138 mg/dL [facility] InterEx [facility] Other Glucose mean value [Mass/vol ume] in Blood Estimated from glycated hemoglobinOrdered By: Aldo Middleton on 09-11-2023 Average glucose Estimated from glycated hemoglobin (Bld) [Mass/Vol] 151 mg/dL [facility] Hemoglobin A1c percentageOrd ered By: Aldo Middleton on 09-11-2023 HbA1c (Bld) [Mass fraction] 6.9 % 4.3-5.6 [facility] Comment on above: Increased risk for d iabetes: 5.7 - 6.4diabetes: >6.4glycemic control for adults with diabetes: <7.0 Consultation Noteon 09-06-20 Consultation Note [id number]#1.00 TIFF Normal [facility] Consultation Noteon 08-28-20 Consultation Note [id number]#1.00 TIFF Normal [facility] US UNI ankle/arm indiceson 1 10-24-2022 US UNI ankle/arm indices [facility] [address] [address] Ultrasound Report Signed Patient: Dong Whitmore MR#: [id number] : 1950 Acct:[id number] Age/Sex: 73 / M ADM Date: 08/24/23 Loc: [facility] Room: Type: [facility] Attending Dr: Eligio Soni MD Ordering [...] Eligio Soni MD08/24/2023 3:31 PM Dictation Location: [place] [address] Tech: Britney Sotelo Transcribed By: [facility] 08/24/23 1531 Dictated By: Eligio Soni MD 08/24/23 1530 Signed By: 08/24/23 1531 Normal [facility] US venous duplex LE RTon US venous duplex LE RT [facility] Main [address] [address] Ultrasound Report Signed Patient: Dong Whitmore MR#: [id number] : 1950 Acct:[id number] Age/Sex: 73 / M ADM Date: 08/24/23 Loc: [facility] Room: Type: [facility] Attending Dr: Eligio Soni MD Ordering [...] Eligio Soni MD08/24/2023 3:31 PM Dictation Location: [place] [address] Tech: Coby Gibson Transcribed By: CIRO 08/24/23 1531 Dictated By: Eligio Soni MD 08/24/23 1531 Signed By: 08/24/23 1531 [facility] Ambulatory Visit Summaryon 1 10-21-2022 Ambulatory Visit Summary CHRISETHEL DONG Boom :1950 Visit Date:08/21/2023 Ambulatory Visit [...] Follow-Up Appointments Monday 2:40 PM EST With: Marylou SCHUSTER, Haider Bee Where: [facility] Invalid Interpretation Code [address] [place] [address]- \.br \ Monday 9:30 AM EDT \.br\ With:\.br\ Where: [facility] Family Medicine Office/Clini c Noteon 08-21-2023 [...] kidney d (more content not included)... Normal [facility] Comment on above: Result Comment: Elec tronically Signed By: Marylou SCHUSTER, Haider Bee\.br\Date and Time Signed: 08/21/23 [...] oz glass (more content not included)... Normal [facility] [facility] Pre-Visit Planningon 023 Pre-Visit Planning - From: Ceci Yu To: Haider Hickman MD; Sent: 08/17/2023 10:44:28 EST Subject: Pre-Visit Planning Due Date/Time: 08/17/2023 10:44:00 EST Caller Name: DONG WHITMORE; Caller Number: H , B [phone] Nm Dr. Hickman. During a pre-visit planning chart [...] feel free to contact me at extension [phone]. Thank you! Ceci Yu LPN Invalid Interpretation Code 272 [facility] Consultation Noteon 08-10-20 Consultation Note [id number]#[id number] Normal [facility] Family Medicine Office/Clini c Noteon 07-26-2023 [...] continue to monitor along. Ordered: A1c POC 54272 Body Mass Index (BMI) documented 3008F Current [...] disease) - As above Ordered: A1c POC 66301 Body Mass Index (BMI) documented 3008F Current [...] stage 3a) - Stable Ordered: A1c POC 73022 Body Mass Index (BMI) documented 3008F Current [...] - No new issues Ordered: A1c POC 45599 Body Mass Index (BMI) documented 3008F Current [...] - BMI education given Ordered: A1c POC 26218 Body Mass Index (BMI) documented 3008F Current [...] last ye (more content not included)... Normal [facility] Comment on above: Result Comment: Elec tronically Signed By: Marylou SCHUSTER, Haider Bee\.br\Date and Time Signed: 07/26/23 [...] numbers. This can be done either in [place] ([place] or metric measurements. Note that charts and online BMI calculators are available to help you find your BMI quickly and easily without having to do these calculations yourself. To calculate your BMI in [place]ian ([place] measurements: 1. Measure your weight in [...] for Disease Control and Prevention: www.cdc.gov ? [place] [employer]: www.heart.org ? National Heart, Lung, and Blood [place]: www.nhlbi.nih.gov Summary ? Body mass index (BMI) is a number that is calculated from a person's weight and height. ? BMI may help estimate how much of a person's weight is composed of fat. BMI can help identify those who may be at higher risk for certain medical problems. ? BMI can be measured using [place]ian measurements or metric measurements. ? BMI charts are used to identify whether you are underweight, normal weight, overweight, or obese. This information is not intended to replace advice given to you by your health care provider. Make sure you discuss any questions you have with your health care provider. Document Revised: 06/17/2020 Document Reviewed: 04/24/2020 [employer] Patient Education ? 2022 [employer] [facility] Physician Referralon 023 Physician Referral [id number]. [id number] [facility] Pre-Visit Planningon 023 Pre-Visit Planning - From: Ceci Yu To: Haider Hickman MD; Sent: 07/24/2023 15:20:33 EDT Subject: Pre-Visit Planning Due Date/Time: 07/24/2023 15:20:00 EDT Caller Name: DONG WHITMORE; Caller Number: H , B [phone] Nm Dr. Hickman. During a pre-visit planning chart [...] feel free to contact me at extension [phone]. Thank you! Ceci Yu LPN From: Marylou SCHUSTER, Haider Bee To: Ceci Yu; Sent: 07/24/2023 16:58:10 EDT Subject: RE: Pre-Visit Planning Caller Name: DONG WHITMORE; Caller Number: H , B [phone] OK to add the first one. Thank you Normal [address] [place] [address] A1C HEMOGLOBINon 02-14-2023 HbA1c (Bld) [Mass fraction] 7.6 % [facility] Other Glucose - FINGER STICKon Glucose [Mass/Vol] 215 mg/dL [facility] Other HbA1c (Bld) [Mass fraction]o n 02-14-[address] [facility] 20x200 Other ECHOCARDIO M/2D COMPLETEon 0 12-30-2022 ECHOCARDIO M/2D COMPLETE Patient: DONG WHITMORE Exam Date: 12/30/2022 : 1950 Gender:M Ordering : MARY APARICIO [facility] Admission #: [id number] Family : Order #: [id number] CLICK HERE TO VIEW EXAM ECHOCARDIOGRAM REPORT [...] Thibodeaux M.D. on 12/30/2022 at 18:49 Normal [facility] NM STRESS/REST MULTIon 12-29 [place] STRESS/REST MULTI Patient: DONG WHITMORE Exam Date: 12/29/2022 : 1950 Gender:M Ordering : MARY APARICIO [facility] Admission #: [id number] Family : Order #: [id number] CLICK HERE TO VIEW EXAM RADIOLOGY REPORT [...] Morales M.D. on 12/30/2022 at 09:41 Normal [facility] US MAMI DOP LEG RTon 12-09-19 [...] ultrasound, January 02, 2010. Electronically authenticated by: OMRGAN ROJO Date: 2022-12-08 16:15 Normal [facility] TSHon 11-25-2022 TSH 2.370 uIU/mL Normal 0.358-3.740 [facility] Comment on above: Performed By: #### T SH #### [facility] Laboratory [address] [place] [address] Dr. Eli Jarvis BNPon 11-08-2022 Natriuretic peptide B (Bld) [Mass/Vol] 122.0 pg/mL Normal <=900.0 [facility] Comment on above: Performed By: #### C MP, BNP #### [facility] Laboratory [address] [address] [address] Eli Jarvis CBC AUTO DIFFon 11-08-2022 BASO # 0.1 103/ul Normal 0.0-0.1 [facility] Comment on above: Performed By: #### C BC ####[facility] [address] [address]Dr. Eli Jarvis Basophils/100 WBC (Bld) 0.7 % Normal 0.2-2.0 [facility] Comment on above: Performed By: #### C BC ####[facility] [address] [place], [place] [address]Dr. Eli Jarvis EO # 0.2 103/ul Normal 0.0-0.7 [facility] Comment on above: Performed By: #### C BC ####[facility] [address] [place], [place] [address]Dr. Eli Jarvis Eosinophils/100 WBC (Bld) 3.5 % Normal 0.9-7.0 [facility] Comment on above: Performed By: #### C BC ####[facility] [address] [place], [place] [address]Dr. Eli Jarvis Erythrocyte distribution width (RBC) [Ratio] 13.8 % Normal 11.0-15.0 [facility] Comment on above: Performed By: #### C BC ####[facility] [address] [place], [place] [address]Dr. Eli Jarvis Hematocrit (Bld) [Volume fraction] 42.0 % Normal 42.0-54.0 [facility] Comment on above: Performed By: #### C BC ####[facility] N[address] [place], [place] [address]Dr. Eli Jarvis Hemoglobin (Bld) [Mass/Vol] 13.8 g/dL Critically low 14.0-18.0 [facility] Comment on above: Performed By: #### C BC ####[facility] [address] [place], [place] [address]Dr. Eli Jarvis IG # 0.03 10e3/ul Normal 0.00-0.03 [facility] Comment on above: Performed By: #### C BC ####[facility] [address] [place], [place] [address]Dr. Eli Jarvis IG % 0.4 % Normal 0.0-0.5 [facility] Comment on above: Performed By: #### C BC ####[facility] [address] [address]DrSuzie Eli Matheus LYMPH # 1.3 103/ul Normal 1.2-3.8 [facility] Comment on above: Performed By: #### C BC ####[facility] [address] [address]Dr. Eli Jarvis Lymphocytes/100 WBC (Bld) 18.8 % Critically low 20.5-60.0 [facility] Comment on above: Performed By: #### C BC ####[facility] [address] [address]DrSuzie Jarvis MANUAL DIFF REQ NO Normal [facility] Comment on above: Performed By: #### C BC ####[facility] [address] [address]Dr. Eli Jarvis MCH (RBC) [Entitic mass] 27.8 pg Normal 25.9-34.0 [facility] Comment on above: Performed By: #### C BC ####[facility] [address] [address]Dr. Sparklealine Jarvis MCHC (RBC) [Mass/Vol] 32.9 g/dL Normal 29.9-35.2 [facility] Comment on above: Performed By: #### C BC ####[facility] [address] [address]DrSuzie Jarvis MCV (RBC) [Entitic vol] 84.7 fL Normal 80.0-94.0 [facility] Comment on above: Performed By: #### C BC ####[facility] [address] [place], [place] [address]DrSuzie Jarvis MONO # 0.6 103/ul Normal 0.3-0.8 [facility] Comment on above: Performed By: #### C BC ####[facility] [address] [phone] Jarivs Monocytes/100 WBC (Bld) 8.5 % Normal 1.7-12.0 [facility] Comment on above: Performed By: #### C BC ####[facility] [address] [place] [phone] Jarvis NEUT # 4.7 103/ul Normal 1.4-6.5 [facility] Comment on above: Performed By: #### C BC ####[facility] [address] [place] [phone] Jarvis Neutrophils/100 WBC (Bld) 68.1 % Normal 43.0-75.0 [facility] Comment on above: Performed By: #### C BC ####[facility] [address] [phone] Jarvis Platelet mean volume (Bld) [Entitic vol] 10.3 fL Normal 9.5-13.5 [facility] Comment on above: Performed By: #### C BC ####[facility] [address] [address]DrSuzie Jarvis PLT 189 103/ul Normal 150-450 [facility] Comment on above: Performed By: #### C BC ####[facility] [address] [phone]. Eli Jarvis RBC 4.96 106/ul Normal 4.70-6.10 [facility] Comment on above: Performed By: #### C BC ####[facility] [address] [place] [phone] Jarvis WBC 7.0 103/ul Normal 4.0-11.0 [facility] Comment on above: Performed By: #### C BC ####[facility] [address] [phone]. Eli Jarvis PROF 14(COMP METB)on 023 Albumin [Mass/Vol] 3.6 g/dL Normal 3.4-5.0 [facility] Comment on above: Performed By: #### C MP, BNP #### [facility] [address] [place], [place] [address] Dr. Eli Jarvis Albumin/Globulin [Mass ratio] 1.1 {ratio} Normal [facility] Comment on above: Performed By: #### C MP, BNP #### [facility] [address] [address] [address] Eli Jarvis ALP [Catalytic activity/Vol] 90 U/L Normal 46-116 [facility] Comment on above: Performed By: #### C MP, BNP #### [facility] [address] [address] [address] Eli Jarvis ALT [Catalytic activity/Vol] 42 U/L Normal 16-63 [facility] Comment on above: Performed By: #### C MP, BNP #### [facility] Laboratory [address] [place] [address] Dr. Eli Jarvis Anion gap [Moles/Vol] 13.5 mmol/L Normal [facility] Comment on above: Performed By: #### C MP, BNP #### [facility] Laboratory [address] [place] [address] Dr. Eli Jarvis AST [Catalytic activity/Vol] 26 U/L Normal 15-37 [facility] Comment on above: Performed By: #### C MP, BNP #### [facility] Laboratory [address] [place] [address] Dr. Eli Jarvis Bilirubin [Mass/Vol] 0.4 mg/dL Normal 0.2-1.0 [facility] Comment on above: Performed By: #### C MP, BNP #### [facility] [address] [address] [address] Eli Jarvis Calcium [Mass/Vol] 9.3 mg/dL Normal 8.5-10.1 [facility] Comment on above: Performed By: #### C MP, BNP #### [facility] [address] [address] [address] Eli Jarvis Chloride [Moles/Vol] 104 mmol/L Normal 98-107 [facility] Comment on above: Performed By: #### C MP, BNP #### [facility] Laboratory [address] [place] [address] Dr. Eli Jarvis CO2 [Moles/Vol] 25.7 mmol/L Normal 21.0-32.[address] [facility] Comment on above: Performed By: #### C MP, BNP #### [facility] [address] [address] [address] Eli Jarvis Creatinine [Mass/Vol] 1.32 mg/dL Critically high 0.70-1.30 [facility] Comment on above: Performed By: #### C MP, BNP #### [facility] [address] [address] [address] Eli Jarvis EGFR-AF WALLISIAN >60 Normal >=[address] [facility] Comment on above: Performed By: #### C MP, BNP #### [facility] [address] [address] [address] Eli Jarvis EGFR-NON AF WALLISIAN 53 mL/min/1.73m2 Critically low >=60 [facility] Comment on above: Performed By: #### C MP, BNP #### [facility] [address] [address] [address] Eli Jarvis Globulin (S) [Mass/Vol] 3.3 g/dL Normal [facility] Comment on above: Performed By: #### C MP, BNP #### [facility] [address] [address] [address] Eli Jarvis Glucose [Mass/Vol] 154 mg/dL Critically high 74-106 [facility] Comment on above: Performed By: #### C MP, BNP #### [facility] [address] [address] [address] Eli Jarvis Potassium [Moles/Vol] 4.2 mmol/L Normal 3.5-5.1 [facility] Comment on above: Performed By: #### C MP, BNP #### [facility] [address] [address] [address] Eli Jarvis Protein [Mass/Vol] 6.9 g/dL Normal 6.4-8.2 [facility] Comment on above: Performed By: #### C MP, BNP #### [facility] [address] [address] [address] Eli Jarvis Sodium [Moles/Vol] 139 mmol/L Normal 136-145 [facility] Comment on above: Performed By: #### C MP, BNP #### [facility] [address] [address] [address] Eli Jarvis Urea nitrogen [Mass/Vol] 23.0 mg/dL Critically high 7.0-18.0 [facility] Comment on above: Performed By: #### C MP, BNP #### [facility] [address] [address] [address] Eli Jarvis Urea nitrogen/Creatinine [Mass ratio] 17.4 mg/mg Normal [facility] Comment on above: Performed By: #### C MP, BNP #### [facility] [address] [address] [address] Eli Jarvis A1C HEMOGLOBINon 11-07-2022 HbA1c (Bld) [Mass fraction] 7.6 % [facility] Other Glucose - FINGER STICKon Glucose [Mass/Vol] 172 mg/dL [facility] Other HbA1c (Bld) [Mass fraction]o n 11-07-2022 A1C HEMOGLOBIN [employer] Other US KIDNEYSon 2022 US KIDNEYS EXAMINATION: [...] by: MORGAN ROJO Date: 2022 18:30 Normal [facility] A1C HEMOGLOBINon 07-27-2022 HbA1c (Bld) [Mass fraction] 7.2 % [employer] [facility] Other Glucose - FINGER STICKon Glucose [Mass/Vol] 160 mg/dL [facility] Other HbA1c (Bld) [Mass fraction]o n 07-27-2022 A1C HEMOGLOBIN [employer] Other A1C HEMOGLOBINon 04-21-2022 HbA1c (Bld) [Mass fraction] 7.6 % [employer] [facility] Other Glucose - FINGER STICKon Glucose [Mass/Vol] 184 mg/dL [facility] Other HbA1c (Bld) [Mass fraction]o n 04-21-2022 A1C HEMOGLOBIN [employer] Other [employer] Creat Ratio,Uon Albumin DL <= 20 mg/L (U) [Mass/Vol] 10.1913813 mg/dL High 0.0-1.8 mg/dL [facility] Other Albumin/Creatinine DL <= 20 mg/L (U) [Mass ratio] 70.038924 mg/g High 0.0-30.0 mg/g [facility] Other Creatinine (U) [Mass/Vol] 085.3972745 mg/dL [facility] Other CBC AUTO DIFFon 04-07-2022 BASO # 0.0 103/ul Normal 0.0-0.1 [facility] Comment on above: Performed By: #### C BC #### [facility] [address] [place] [address] Dr. Eli Jarvis Basophils/100 WBC (Bld) 0.6 % Normal 0.2-2.0 [facility] Comment on above: Performed By: #### C BC #### [facility] [address] [place] [address] Dr. Eli Jarvis EO # 0.2 103/ul Normal 0.0-0.7 [facility] Comment on above: Performed By: #### C BC #### [facility] [address] [place] [address] Dr. Eli Jarvis Eosinophils/100 WBC (Bld) 2.9 % Normal 0.9-7.0 [facility] Comment on above: Performed By: #### C BC #### [facility] [address] [place] [address] Dr. Eli Jarvis Erythrocyte distribution width (RBC) [Ratio] 13.8 % Normal 11.0-15.0 [facility] Comment on above: Performed By: #### C BC #### [facility] [address] [place] [address] Dr. Eli Jarvis Hematocrit (Bld) [Volume fraction] 40.7 % Critically low 42.0-54.0 [facility] Comment on above: Performed By: #### C BC #### [facility] [address] [place] [address] Dr. Eli Jarvis Hemoglobin (Bld) [Mass/Vol] 13.3 g/dL Critically low 14.0-18.0 [facility] Comment on above: Performed By: #### C BC #### [facility] [address] [place] [address] Dr. Eli Jarvis IG # 0.04 10e3/ul Critically high 0.00-0.03 [facility] Comment on above: Performed By: #### C BC #### [facility] [address] [place] [address] Dr. Eli Jarvis IG % 0.6 % Critically high 0.0-0.5 [facility] Comment on above: Performed By: #### C BC #### [facility] [address] [place] [address] Dr. Eli Jarvis LYMPH # 1.3 103/ul Normal 1.2-3.8 [facility] Comment on above: Performed By: #### C BC #### [facility] [address] [place] [address] Dr. Eli Jarvis Lymphocytes/100 WBC (Bld) 18.7 % Critically low 20.5-60.0 [facility] Comment on above: Performed By: #### C BC #### [facility] [address] [place] [address] Dr. Eli Jarvis MANUAL DIFF REQ NO Normal [facility] Comment on above: Performed By: #### C BC #### [facility] [address] [place] [address] Dr. Eli Jarvis MCH (RBC) [Entitic mass] 28.1 pg Normal 25.9-34.0 [facility] Comment on above: Performed By: #### C BC #### [facility] [address] [place] [address] Dr. Eli Jarvis MCHC (RBC) [Mass/Vol] 32.7 g/dL Normal 29.9-35.2 [facility] Comment on above: Performed By: #### C BC #### [facility] [address] [place] [address] Dr. Eli Jarvis MCV (RBC) [Entitic vol] 86.0 fL Normal 80.0-94.0 [facility] Comment on above: Performed By: #### C BC #### [facility] [address] [place] [address] Dr. Eli Jarvis MONO # 0.4 103/ul Normal 0.3-0.8 [facility] Comment on above: Performed By: #### C BC #### [facility] [address] [place] [address] Dr. Eli Jarvis Monocytes/100 WBC (Bld) 6.2 % Normal 1.7-12.0 [facility] Comment on above: Performed By: #### C BC #### [facility] [address] [place] [address] Dr. Eli Jarvis NEUT # 4.9 103/ul Normal 1.4-6.5 [facility] Comment on above: Performed By: #### C BC #### [facility] [address] [place] [address] Dr. Eli Jarvis Neutrophils/100 WBC (Bld) 71.0 % Normal 43.0-75.0 [facility] Comment on above: Performed By: #### C BC #### [facility] [address] [address] [address] Eli Jarvis Platelet mean volume (Bld) [Entitic vol] 9.9 fL Normal 9.5-13.5 [facility] Comment on above: Performed By: #### C BC #### [facility] [address] [address] [address] Eli Jarvis PLT 184 103/ul Normal 150-450 [facility] Comment on above: Performed By: #### C BC #### [facility] [address] [address] [address] Eli Jarvis RBC 4.73 106/ul Normal 4.70-6.10 [facility] Comment on above: Performed By: #### C BC #### [facility] [address] [address] [address] Eli Jarvis WBC 6.9 103/ul Normal 4.0-11.0 [facility] Comment on above: Performed By: #### C BC #### [facility] [address] [address] [address] Eli Jarvis LIPID PROFILEon 04-07-2022 CHOL-HDL RATIO NORM SEE BELOW Normal [facility] Comment on above: Result Comment: 3.3 - 4.4 LOW RISK 4.4 - 7.1 AVERAGE RISK 7.1 - 11.0 MODERATE RISK >11.0 HIGH RISK Performed By: #### C MP, LIPID ####[facility] [address] [address]DrSuzie Jarvis Cholesterol [Mass/Vol] 127 mg/dL Normal <=200 [facility] Comment on above: Performed By: #### C MP, LIPID ####[facility] [address] [place] [address]DrSuzie Jarvis Cholesterol in HDL [Mass/Vol] 36 mg/dL Critically low 40-60 [facility] Comment on above: Performed By: #### C MP, LIPID ####[facility] [address] [place] [address]Dr. Eli Jarvis Cholesterol in LDL [Mass/Vol] 58.4 mg/dL Normal [facility] Comment on above: Performed By: #### C MP, LIPID ####[facility] [address] [place] [address]Dr. Eli Jarvis Cholesterol.total/Ch olesterol in HDL [Mass ratio] 3.5 {ratio} Normal [facility] Comment on above: Performed By: #### C MP, LIPID ####[facility] [address] [address]Dr. Eli Jarvis HDL NORMAL > or = 60 mg/dl - LO W CARDIOVASCULAR RISK <40 mg/dl - HIGH CARDIOVASCULAR RISK Normal [facility] Comment on above: Performed By: #### C MP, LIPID ####[facility] [address] [address]Dr. Eli Jarvis LDL CALC NORMAL SEE BELOW Normal [facility] Comment on above: Result Comment: <100 mg/dl OPTIMAL 100 - 129 mg/dl NEAR OR ABOVE OPTIMAL 130 - 159 mg/dl BORDERLINE HIGH 160 - 189 mg/dl HIGH >190 mg/dl VERY HIGH Performed By: #### C MP, LIPID ####[facility] [address] [address]Dr. Eli Jarvis Triglyceride [Mass/Vol] 163 mg/dL Critically high <=150 [facility] Comment on above: Performed By: #### C MP, LIPID ####[facility] [address] [place] [address]Dr. Eli Jarvis VLDL CALC 32.6 mg/dL Normal [facility] Comment on above: Performed By: #### C MP, LIPID ####[facility] [address] [place] [phone]. Eli Jarvis PROF 14(COMP METB)on 022 Albumin [Mass/Vol] 3.8 g/dL Normal 3.4-5.0 [facility] Comment on above: Performed By: #### C MP, LIPID ####[facility] [address] [place] [address]Dr. Eli Jarvis Albumin/Globulin [Mass ratio] 1.1 {ratio} Normal [facility] Comment on above: Performed By: #### C MP, LIPID ####[facility] [address] [place] [phone]. Sparklealine Jarvis ALP [Catalytic activity/Vol] 89 U/L Normal 46-116 [facility] Comment on above: Performed By: #### C MP, LIPID ####[facility] [address] [place] [address]Dr. Eli Jarvis ALT [Catalytic activity/Vol] 43 U/L Normal 16-63 [facility] Comment on above: Performed By: #### C MP, LIPID ####[facility] [address] [place] [address]Dr. Eli Jarvis Anion gap [Moles/Vol] 10.7 mmol/L Normal [facility] Comment on above: Performed By: #### C MP, LIPID ####[facility] [address] [place] [address]Dr. Eli Jarvis AST [Catalytic activity/Vol] 24 U/L Normal 15-37 [facility] Comment on above: Performed By: #### C MP, LIPID ####[facility] [address] [place], [place] [address]Dr. Eli Jarvis Bilirubin [Mass/Vol] 0.2 mg/dL Normal 0.2-1.0 [facility] Comment on above: Performed By: #### C MP, LIPID ####[facility] [address] [place] [id number]. Eli Jarvis Calcium [Mass/Vol] 9.1 mg/dL Normal 8.5-10.1 [facility] Comment on above: Performed By: #### C MP, LIPID ####[facility] [address] [place] [address]Dr. Eli Jarvis Chloride [Moles/Vol] 104 mmol/L Normal 98-107 [facility] Comment on above: Performed By: #### C MP, LIPID ####[facility] [address] [place] [address]Dr. Eli Jarvis CO2 [Moles/Vol] 27.5 mmol/L Normal 21.0-32.[address] [facility] Comment on above: Performed By: #### C MP, LIPID ####[facility] [address] [place] [phone]. Sparklealine Jarvis Creatinine [Mass/Vol] 1.15 mg/dL Normal 0.70-1.30 [facility] Comment on above: Performed By: #### C MP, LIPID ####[facility] [address] [place] [phone]. Eli Matheus EGFR-AF WALLISIAN >60 Normal >=[address] [facility] Comment on above: Performed By: #### C MP, LIPID ####[facility] [address] [place] [id number]. Eli Jarvis EGFR-NON AF WALLISIAN >60 Normal >=60 [facility] Comment on above: Performed By: #### C MP, LIPID ####[facility] [address] [place] [phone]. Sparklealine Jarvis Globulin (S) [Mass/Vol] 3.4 g/dL Normal [facility] Comment on above: Performed By: #### C MP, LIPID ####[facility] [address] [place] [phone]. Sparklealine Jarvis Glucose [Mass/Vol] 157 mg/dL Critically high 74-106 [facility] Comment on above: Performed By: #### C MP, LIPID ####[facility] [address] [place] [phone]. Sparklealine Jarvis Potassium [Moles/Vol] 4.2 mmol/L Normal 3.5-5.1 [facility] Comment on above: Performed By: #### C MP, LIPID ####[facility] [address] [place] [phone]. Eli Jarvis Protein [Mass/Vol] 7.2 g/dL Normal 6.4-8.2 [facility] Comment on above: Performed By: #### C MP, LIPID ####[facility] [address] [place] [phone]. Eli Jarvis Sodium [Moles/Vol] 138 mmol/L Normal 136-145 [facility] Comment on above: Performed By: #### C MP, LIPID ####[facility] [address] [place] [phone]. Eli Jarvis Urea nitrogen [Mass/Vol] 26.0 mg/dL Critically high 7.0-18.0 [facility] Comment on above: Performed By: #### C MP, LIPID ####[facility] [address] [place], [place] [address]Pp. Eli Jarvis Urea nitrogen/Creatinine [Mass ratio] 22.6 mg/mg Normal [facility] Comment on above: Performed By: #### C MP, LIPID ####[facility] [address] [place] [phone]. Eli Jarvis A1C HEMOGLOBINon 10-21-2021 HbA1c (Bld) [Mass fraction] 6.6 % [facility] Other Glucose - FINGER STICKon Glucose [Mass/Vol] 169 mg/dL [facility] Other HbA1c (Bld) [Mass fraction]o n 10-21-2021 A1C HEMOGLOBIN [facility] [employer] Other Comprehensive Metabolic Pane deann 07-29-2021 Albumin [Mass/Vol] 3.9 g/dL 3.2-5.5 [facility] Other Albumin/Globulin [Mass ratio] 1.6 {ratio} [facility] Other ALP [Catalytic activity/Vol] 63 U/L 32-92 [facility] Other ALT [Catalytic activity/Vol] 32 U/L 10-60 [facility] Other AST [Catalytic activity/Vol] 32 U/L 10-42 [facility] Other Bilirubin [Mass/Vol] 0.5 mg/dL 0.3-1.2 [facility] Other Calcium [Mass/Vol] 9.7 mg/dL 8.2-10.2 [facility] 20x200 Other Chloride [Moles/Vol] 105 mmol/L 95-114 [facility] 20x200 Other CO2 [Moles/Vol] 22.7 mmol/L 22.0-30.0 [facility] 20x200 Other Creatinine [Mass/Vol] 1.28 mg/dL 0.64-1.27 [facility] 20x200 Other Glucose [Mass/Vol] 111 mg/dL 70-100 [facility] 20x200 Other Potassium [Moles/Vol] 4.1 mmol/L 3.5-5.1 [facility] 20x200 Other Protein [Mass/Vol] 6.3 g/dL 6.1-7.9 [facility] 20x200 Other Sodium [Moles/Vol] 139 mmol/L 136-146 [facility] 20x200 Other Urea nitrogen [Mass/Vol] 23 mg/dL 9-23 [facility] 20x200 Other Comprehensive Metabolic Panel 55 [facility] 20x200 Other Comprehensive Metabolic Panel > 60 [facility] 20x200 Other Comprehensive Metabolic Panel 2.4 [facility] 20x200 Other Hepatitis Acute Panelon 10-2 Hepatitis Acute Panel Negative Negative [facility] 20x200 Other Hepatitis Acute Panel <0.1 0.0-0.9 [facility] 20x200 Other Vital Signs Date Time Vital Sign Value Performing Clinician Facility 08-29-2024 09:27-0500 Body mass index (BMI) [Ratio] 45.93 kg/m2 Matthew BurgosBlackfoot Phone: [facility] 08-29-2024 09:27-0500 Body weight 125.19 kg Matthew May DO Work Phone: [facility] 08-29-2024 09:27-0500 Diastolic blood pressure 76 mm[Hg] Christopher Lalo DO Work Phone: [facility] 08-29-2024 09:27-0500 Heart rate 64 /min Christopher Lalo DO Work Phone: [facility] 08-29-2024 09:27-0500 SaO2% (BldA) [Mass fraction] 95 % Christopher Lalo DO Work Phone: [facility] 08-29-2024 09:27-0500 Systolic blood pressure 134 mm[Hg] Christopher Lalo DO Work Phone: [facility] 08-14-2024 09:59-0500 Body mass index (BMI) [Ratio] 40.46 kg/m2 Chiqui Robles MD Work Phone: [facility] 08-14-2024 09:59-0500 Body weight 117.2 kg Chiqui Robles MD Work Phone: [facility] 08-14-2024 09:59-0500 Diastolic blood pressure 69 mm[Hg] Chiqui Robles MD Work Phone: [facility] 08-14-2024 09:59-0500 Heart rate 59 /min Chiqui Robles MD Work Phone: [facility] 08-14-2024 09:59-0500 Respiratory rate 16 /min Chiqui Robles MD Work Phone: [facility] 08-14-2024 09:59-0500 SaO2% (BldA) [Mass fraction] 97 % Chiqui Robles MD Work Phone: [facility] 08-14-2024 09:59-0500 Systolic blood pressure 137 mm[Hg] Chiqui Robles MD Work Phone: [facility] 08-08-2024 09:32-0400 Body height 165.1 cm Bassam Aguilar DPM Work Phone: [facility] 08-08-2024 09:32-0400 Body mass index (BMI) [Ratio] 42.43 kg/m2 Bassam Aguilar DPM Work Phone: [facility] 08-08-2024 09:32-0400 Body weight 115.67 kg Bassam Aguilar DPM Work Phone: [facility] 08-08-2024 09:32-0400 Diastolic blood pressure 79 mm[Hg] Bassam Aguilar DPM Work Phone: [facility] 08-08-2024 09:32-0400 Heart rate 82 /min Bassam Aguilar DPM Work Phone: [facility] 08-08-2024 09:32-0400 Systolic blood pressure 128 mm[Hg] Bassam Aguilar DPM Work Phone: [facility] 08-06-2024 09:53-0400 Body height 165.1 cm Kahi Heard DO Work Phone: [facility] 08-06-2024 09:53-0400 Body mass index (BMI) [Ratio] 42.43 kg/m2 Khai Heard DO Work Phone: [facility] 08-06-2024 09:53-0400 Body weight 115.67 kg Khai Heard DO Work Phone: [facility] 07-31-2024 10:20-0400 Body height 165.1 cm Shyam Cam DPM FACFAS Work Phone: [facility] 07-31-2024 10:20-0400 Body mass index (BMI) [Ratio] 42.43 kg/m2 Shyam Cam DPM FACFAS Work Phone: [facility] 07-31-2024 10:20-0400 Body weight 115.67 kg Shyam Dolce DPM FACFAS Work Phone: [facility] 07-31-2024 10:20-0400 Diastolic blood pressure 79 mm[Hg] Shyam Cam DPM FACFAS Work Phone: [facility] 07-31-2024 10:20-0400 Heart rate 68 /min Shyam Dolce DPM FACFAS Work Phone: [facility] 07-31-2024 10:20-0400 Systolic blood pressure 128 mm[Hg] Shyam Dolce DPM FACFAS Work Phone: [facility] 07-24-2024 10:12-0400 Body height 165.1 cm Shyam Dolce DPM FACFAS Work Phone: [facility] 07-24-2024 10:12-0400 Body mass index (BMI) [Ratio] 42.43 kg/m2 Shyam Dolce DPM FACFAS Work Phone: [facility] 07-24-2024 10:12-0400 Body weight 115.67 kg Shyam Dolce DPM FACFAS Work Phone: [facility] 07-24-2024 10:12-0400 Diastolic blood pressure 78 mm[Hg] Shyam Dolce DPM FACFAS Work Phone: [facility] 07-24-2024 10:12-0400 Heart rate 83 /min Shyam Dolce DPM FACFAS Work Phone: [facility] 07-24-2024 10:12-0400 Systolic blood pressure 131 mm[Hg] Shyam Dolce DPM FACFAS Work Phone: [facility] 07-23-2024 09:37-0400 Body height 165.1 cm Arlen Sanchez DO Work Phone: [facility] 07-23-2024 09:37-0400 Body mass index (BMI) [Ratio] 42.43 kg/m2 Arlen Sanchez DO Work Phone: [facility] 07-23-2024 09:37-0400 Body weight 115.67 kg Arlen Sanchez DO Work Phone: [facility] 04-24-2024 08:50-0400 Body height 170.2 cm Chiqui Robles MD Work Phone: [facility] 04-24-2024 08:50-0400 Body mass index (BMI) [Ratio] 42.28 kg/m2 Chiqui Robles MD Work Phone: [facility] 04-24-2024 08:50-0400 Body weight 122.47 kg Chiqui Robles MD Work Phone: [facility] 04-24-2024 08:50-0400 Diastolic blood pressure 89 mm[Hg] Chiqui Robles MD Work Phone: [facility] 04-24-2024 08:50-0400 Heart rate 61 /min Chiqui Robles MD Work Phone: [facility] 04-24-2024 08:50-0400 SaO2% (BldA) [Mass fraction] 95 % Chiqui Robles MD Work Phone: [facility] 04-24-2024 08:50-0400 Systolic blood pressure 122 mm[Hg] Chiqui Robles MD Work Phone: [facility] 02-29-2024 13:41-0400 Body height 170.2 cm Herberth Araujo MD, PhD Work Phone: [facility] 02-29-2024 13:41-0400 Body mass index (BMI) [Ratio] 42.29 kg/m2 Herberth Araujo MD, PhD Work Phone: [facility] 02-29-2024 13:41-0400 Body temperature 97.39 [degF] Herberth Araujo MD, PhD Work Phone: [facility] 02-29-2024 13:41-0400 Body weight 122.47 kg Herberth Araujo MD, PhD Work Phone: [facility] 02-29-2024 13:41-0400 Diastolic blood pressure 73 mm[Hg] Herberth Araujo MD, PhD Work Phone: [facility] 02-29-2024 13:41-0400 Heart rate 62 /min Herberth Araujo MD, PhD Work Phone: [facility] 02-29-2024 13:41-0400 SaO2% (BldA) [Mass fraction] 94 % Herberth Araujo MD, PhD Work Phone: [facility] 02-29-2024 13:41-0400 Systolic blood pressure 138 mm[Hg] Herberth Araujo MD, PhD Work Phone: [facility] 02-05-2024 12:17-0400 Body weight 124.74 kg Francoise Singletary MD Work Phone: [facility] 02-05-2024 12:17-0400 Diastolic blood pressure 70 mm[Hg] Francoise Singletary MD Work Phone: [facility] 02-05-2024 12:17-0400 Heart rate 80 /min Francoise Singletary MD Work Phone: [facility] 02-05-2024 12:17-0400 Systolic blood pressure 131 mm[Hg] Francoise Singletary MD Work Phone: [facility] 09-11-2023 11:00-0500 Body height 167.64 cm Tondra Mapus Other [facility] 09-11-2023 11:00-0500 Body mass index (BMI) [Ratio] 44.91 kg/m2 Tondra Mapus Other [facility] 20x200 Other 09-11-2023 11:00-0500 Body weight 126.24 kg Tondra Mapus Other [facility] 20x200 Other 09-11-2023 11:00-0500 Body weight 126.23 kg MD Scarlet Johnson Work Phone: [facility] 09-11-2023 11:00-0500 Diastolic blood pressure 82 mm[Hg] Tondra Mapus Other [facility] 09-11-2023 11:00-0500 Respiratory rate 18 /min Tondra Mapus Other [facility] 20x200 Other 09-11-2023 11:00-0500 SaO2% (BldA) [Mass fraction] 99 % Aldo Middleton Other [facility] 20x200 Other 09-11-2023 11:00-0500 Systolic blood pressure 153 mm[Hg] Aldo Grantus Other [facility] 08-24-2023 13:45-0500 Body height 167.64 cm Eligio Soni Other [facility] 08-24-2023 13:45-0500 Body mass index (BMI) [Ratio] 44.22 kg/m2 Eligio Soni Other [facility] 20x200 Other 08-24-2023 13:45-0500 Body temperature 97.4 [degF] Eligio Soni Other [facility] 20x200 Other 08-24-2023 13:45-0500 Body weight 124.29 kg Eligio Soni Other [facility] 20x200 Other 08-24-2023 13:45-0500 Body weight 124.28 kg MD Scarlet Johnson Work Phone: [facility] 08-24-2023 13:45-0500 Diastolic blood pressure 60 mm[Hg] Eligio Soni Other [facility] 08-24-2023 13:45-0500 SaO2% (BldA) [Mass fraction] 97 % Eligio Soni Other [facility] 20x200 Other 08-24-2023 13:45-0500 Systolic blood pressure 130 mm[Hg] Eligio Soni Other [facility] 03-07-2023 10:00-0400 Body height 167.64 cm Terry Kelley Other [facility] Other 03-07-2023 10:00-0400 Body mass index (BMI) [Ratio] 43.61 kg/m2 Terry Kimblediff Other [facility] Other 03-07-2023 10:00-0400 Body weight 122.56 kg Terry Kimblediff Other [facility] Other 03-07-2023 10:00-0400 Diastolic blood pressure 70 mm[Hg] Terry Kimblediff Other [facility] Other 03-07-2023 10:00-0400 Respiratory rate 20 /min Terry Kimblediff Other [facility] Other 03-07-2023 10:00-0400 SaO2% (BldA) [Mass fraction] 96 % Terry Kimblediff Other [facility] Other 03-07-2023 10:00-0400 Systolic blood pressure 134 mm[Hg] Terry Kimblediff Other [facility] Other 02-14-2023 09:45-0400 Body height 172.72 cm Tondra Grantus Other [facility] Other 02-14-2023 09:45-0400 Body mass index (BMI) [Ratio] 41.32 kg/m2 Tondra Mapus Other [facility] Other 02-14-2023 09:45-0400 Body weight 123.29 kg Tondra Mapus Other [facility] Other 02-14-2023 09:45-0400 Diastolic blood pressure 82 mm[Hg] Tondra Mapus Other [facility] Other 02-14-2023 09:45-0400 Respiratory rate 18 /min Tondra Mapus Other [facility] Other 02-14-2023 09:45-0400 SaO2% (BldA) [Mass fraction] 97 % Tondra Mapus Other [facility] Other 02-14-2023 09:45-0400 Systolic blood pressure 157 mm[Hg] Tondra Mapus Other [facility] Other 01-20-2023 12:15-0400 Body height 172.72 cm Carito Fitt Other [facility] Other 01-20-2023 12:15-0400 Body mass index (BMI) [Ratio] 40.71 kg/m2 Carito Fitt Other [facility] Other 01-20-2023 12:15-0400 Body weight 121.47 kg Carito Fitt Other [facility] Other 01-05-2023 11:15-0400 Body height 172.72 cm Terry Kelley Other [facility] Other 01-05-2023 11:15-0400 Body mass index (BMI) [Ratio] 40.96 kg/m2 Terry Kelley Other [facility] Other 01-05-2023 11:15-0400 Body weight 122.2 kg Terry Kelley Other [facility] Other 01-05-2023 11:15-0400 Diastolic blood pressure 73 mm[Hg] Terry Kimblediff Other [facility] Other 01-05-2023 11:15-0400 Respiratory rate 18 /min Terry Kimblediff Other [facility] Other 01-05-2023 11:15-0400 SaO2% (BldA) [Mass fraction] 98 % Terry Kimblediff Other [facility] Other 01-05-2023 11:15-0400 Systolic blood pressure 143 mm[Hg] Terry Kimblediff Other [facility] Other 11-24-2022 12:15-0500 Body height 172.72 cm Carito Fitt Other [facility] Other 11-24-2022 12:15-0500 Body mass index (BMI) [Ratio] 42.22 kg/m2 Carito Fitt Other [facility] Other 11-24-2022 12:15-0500 Body weight 125.96 kg Carito Fitt Other [facility] Other 11-18-2022 11:15-0500 Body height 172.72 cm Terry Kimblediff Other [facility] Other 11-18-2022 11:15-0500 Body mass index (BMI) [Ratio] 41.96 kg/m2 Terry Kimblediff Other [facility] Other 11-18-2022 11:15-0500 Body weight 125.19 kg Terry Kelley Other [facility] Other 11-18-2022 11:15-0500 Diastolic blood pressure 75 mm[Hg] Terry Kelley Other [facility] Other 11-18-2022 11:15-0500 Respiratory rate 18 /min Terry Kelley Other [facility] Other 11-18-2022 11:15-0500 SaO2% (BldA) [Mass fraction] 99 % Terry Kelley Other [facility] Other 11-18-2022 11:15-0500 Systolic blood pressure 148 mm[Hg] Terry Kelley Other [facility] Other 11-07-2022 10:15-0500 Body height 172.72 cm Tondra Mapus Other [facility] Other 11-07-2022 10:15-0500 Body mass index (BMI) [Ratio] 42.58 kg/m2 Tondra Mapus Other [facility] Other 11-07-2022 10:15-0500 Body weight 127.05 kg Tondra Mapus Other [facility] Other 11-07-2022 10:15-0500 Diastolic blood pressure 83 mm[Hg] Tondra Mapus Other [facility] Other 11-07-2022 10:15-0500 Respiratory rate 18 /min Tondra Mapus Other [facility] Other 11-07-2022 10:15-0500 SaO2% (BldA) [Mass fraction] 98 % Tondra Mapus Other [facility] Other 11-07-2022 10:15-0500 Systolic blood pressure 170 mm[Hg] Tondra Mapus Other [facility] Other 10-18-2022 15:00-0500 Body height 172.72 cm Carito Fitt Other [facility] Other 2022 16:15-0400 Body height 172.72 cm Carito Fitt Other [facility] Other 07-27-2022 12:00-0400 Body height 172.72 cm Tondra Mapus Other [facility] Other 07-27-2022 12:00-0400 Body mass index (BMI) [Ratio] 40.9 kg/m2 Tondra Mapus Other [facility] Other 07-27-2022 12:00-0400 Body weight 122.02 kg Tondra Mapus Other [facility] Other 07-27-2022 12:00-0400 Diastolic blood pressure 75 mm[Hg] Tondra Mapus Other [facility] Other 07-27-2022 12:00-0400 Respiratory rate 20 /min Tondra Mapus Other [facility] Other 07-27-2022 12:00-0400 SaO2% (BldA) [Mass fraction] 97 % Tondra Mapus Other [facility] Other 07-27-2022 12:00-0400 Systolic blood pressure 141 mm[Hg] Tondra Mapus Other [facility] Other 06-08-2022 10:45-0400 Body height 172.72 cm Carito West Other [facility] Other 04-21-2022 12:00-0400 Body height 172.72 cm Tondra Mapus Other [facility] Other 04-21-2022 12:00-0400 Body mass index (BMI) [Ratio] 39.67 kg/m2 Tondra Mapus Other [facility] Other 04-21-2022 12:00-0400 Body weight 118.34 kg Tondra Mapus Other [facility] Other 04-21-2022 12:00-0400 Diastolic blood pressure 74 mm[Hg] Tondra Mapus Other [facility] Other 04-21-2022 12:00-0400 Respiratory rate 20 /min Tondra Mapus Other [facility] Other 04-21-2022 12:00-0400 SaO2% (BldA) [Mass fraction] 97 % Tondra Mapus Other [facility] Other 04-21-2022 12:00-0400 Systolic blood pressure 143 mm[Hg] Tondra Mapus Other [facility] Other 10-21-2021 12:00-0500 Body height 172.72 cm Tondra Mapus Other [facility] Other 10-21-2021 12:00-0500 Body mass index (BMI) [Ratio] 40.14 kg/m2 Tondra Mapus Other [facility] Other 10-21-2021 12:00-0500 Body weight 119.75 kg Tondra Mapus Other [facility] Other 10-21-2021 12:00-0500 Diastolic blood pressure 78 mm[Hg] Tondra Mapus Other [facility] Other 10-21-2021 12:00-0500 Respiratory rate 20 /min Tondra Mapus Other [facility] Other 10-21-2021 12:00-0500 SaO2% (BldA) [Mass fraction] 97 % Tondra Mapus Other [facility] Other 10-21-2021 12:00-0500 Systolic blood pressure 147 mm[Hg] Tondra Mapus Other [facility] Other 07-21-2021 15:45-0400 Body height 172.72 cm Morgan Kunz Other [facility] Other 07-21-2021 15:45-0400 Body mass index (BMI) [Ratio] 38.77 kg/m2 Morgan Kunz Other [facility] Other 07-21-2021 15:45-0400 Body weight 115.67 kg Morgan Kunz Other [facility] Other 12-14-2017 15:17-0500 Body height 170.18 cm MD Scarlet Johnson Work Phone: [facility] Encounters Encounter Date Encounter Type Care Provider Facility Start: 11-06-2024 ambulatory Araceli BERMUDEZ Facility : [facility] Start: 08-29-2024 End: 08-29-2024 Bamboo flowsheet Matthew May DO Work Phone: [facility] Start: 08-29-2024 End: 08-29-2024 Bamboo flowsheet Matthew May DO Work Phone: [facility] Start: 08-29-2024 End: 08-29-2024 Office outpatient new 45 minutes Matthew May DO Work Phone: [facility] Comment on above: Right foot pain (Brie jesse Dx); Diabetic polyneuropathy associated with type 2 diabetes mellitus ([facility]/HCC) Start: 08-29-2024 End: 08-29-2024 ambulatory MATTHEW MAY Not Available Start: 08-15-2024 End: 08-15-2024 ambulatory MD Haider Hickman Facility:[facility] Start: 08-14-2024 End: 08-14-2024 ambulatory HAIDER HICKMAN Facility:[facility] Start: 08-14-2024 End: 08-14-2024 Patient encounter procedure Chiqui Robles MD Work Phone: [facility] Comment on above: 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; Chronic toe pain, right foot; Class 3 severe obesity with serious comorbidity and body mass index (BMI) of 40.0 to 44.9 in adult, unspecified obesity type ([facility]) Start: 08-08-2024 End: 08-08-2024 Bamboo flowsheet Bassam Aguilar DPM Work Phone: [facility] Start: 08-08-2024 End: 08-08-2024 Bamboo flowsheet Bassam Aguilar DPM Work Phone: [facility] Start: 08-08-2024 End: 08-08-2024 Office outpatient visit 15 minutes Bassam Aguilar DPM Work Phone: [facility] Comment on above: Amputation of toe of right foot (CMS/HCC) (Primary Dx); Diabetes 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, 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 mcc insulin use (CMS/HCC); Pain due to onychomycosis of toenails of both feet Start: 08-08-2024 End: 08-08-2024 ambulatory BASSAM Nur JEFF Not Available Start: 08-07-2024 End: 08-07-2024 ambulatory [facility] Start: 08-06-2024 End: 08-06-2024 Bamboo flowsheet Khai Heard DO Work Phone: [facility] Start: 08-06-2024 End: 08-06-2024 Bamboo flowsheet Khai Heard DO Work Phone: [facility] Start: 08-06-2024 End: 08-06-2024 Patient encounter procedure Khai Heard DO Work Phone: [facility] Comment on above: Internal derangement of left shoulder (Primary Dx); Complete tear of left rotator cuff, 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 traumatic Start: 08-06-2024 End: 08-06-2024 ambulatory KHAI HEARD Not Available Start: 08-01-2024 End: 08-01-2024 ambulatory MD Haider Hickman Facility:[facility] Start: 07-31-2024 End: 07-31-2024 Bamboo flowsheet Shyam Cam DPM FACFAS Work Phone: [facility] Start: 07-31-2024 End: 07-31-2024 Bamboo flowsheet Shyam Cam DPM FACFAS Work Phone: [facility] Start: 07-31-2024 End: 07-31-2024 Office outpatient visit 15 minutes Shyam Cam DPM FACFAS Work Phone: [facility] Comment on above: 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); Diabetes 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, 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 mcc insulin use (CMS/HCC); Amputation of right great toe (CMS/HCC) Start: 07-31-2024 End: 07-31-2024 ambulatory SHYAM D DOLCE Not Available Start: 07-24-2024 End: 07-24-2024 Bamboo flowsheet Shyam Georgiana Dolce DPM FACFAS Work Phone: [facility] Start: 07-24-2024 End: 07-24-2024 Bamboo flowsheet Shyam D Dolce DPM FACFAS Work Phone: [facility] Start: 07-24-2024 End: 07-24-2024 Office outpatient visit 25 minutes Shyam Georgiana Higginsce DPM FACFAS Work Phone: [facility] Comment on above: 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); Diabetes 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, 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 mcc insulin use ([facility]) Start: 07-24-2024 End: 07-24-2024 ambulatory SHYAM D DOLKILO Not Available Start: 07-23-2024 End: 07-23-2024 Bamboo flowsheet Arlen Sanchez DO Work Phone: [facility] Start: 07-23-2024 End: 07-23-2024 Bamboo flowsheet Arlen Sanchez DO Work Phone: [facility] Start: 07-23-2024 End: 07-23-2024 Office outpatient visit 25 minutes Arlen Sanchez DO Work Phone: [facility] Comment on above: Internal derangement of left shoulder (Primary Dx); Arthritis of left acromioclavicular joint; Complete tear of left rotator cuff, 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 traumatic; Left shoulder pain, unspecified chronicity Start: 07-23-2024 End: 07-23-2024 ambulatory ARLEN SANCHEZ Not Available Start: 07-19-2024 End: 07-22-2024 Refill Chiqui Robles MD Work Phone: Neurology Pain Comment on above: Med Change Request Start: 07-19-2024 End: 07-19-2024 ambulatory [facility] [facility] Start: 07-17-2024 End: 07-18-2024 ambulatory Araceli BERMUDEZ Facility:[facility] Comment on above: Medication Question Start: 07-03-2024 End: 07-03-2024 ambulatory SHYAM D DOLCE Not Available Start: 07-01-2024 End: 07-01-2024 ambulatory MIHIR B APLING Not Available Start: 06-26-2024 End: 06-26-2024 ambulatory [facility] Start: 06-25-2024 End: 06-25-2024 ambulatory KAJAL R DOLCE Not Available Start: 06-19-2024 End: 06-19-2024 ambulatory Kajal R Dolce Facility:[facility] Start: 06-19-2024 End: 06-19-2024 ambulatory SHYAM D DOLCE Not Available Start: 06-18-2024 End: 06-18-2024 ambulatory BASSAM AGUILAR Not Available Start: 06-12-2024 End: 06-12-2024 ambulatory Kajal R Dolce Facility:[facility] Start: 06-12-2024 End: 06-12-2024 ambulatory MIHIR B APLING Not Available Start: 06-07-2024 End: 06-07-2024 [facility] Britney Hyde PhD Work Phone: Pain Recovery Comment on above: Adjustment disorder with depressed mood (Primary Dx); Complex regional pain syndrome type II of right lower limb; Chronic toe pain, right foot Start: 06-05-2024 End: 06-05-2024 ambulatory Kajal R Dolce Facility:[facility] Start: 05-27-2024 End: 05-27-2024 ambulatory MIHIR B APLING Not Available Start: 05-23-2024 ambulatory Chiqui chapa MD Work Phone: Neurology Pain Comment on above: taking memantine HCL Start: 05-22-2024 End: 05-22-2024 ambulatory DAVID ACOSTA Facility:[facility] [place] [facility] Start: 05-13-2024 End: 05-13-2024 ambulatory Haider Hickman Facility: [facility] [place] [facility] Start: 05-09-2024 End: 05-09-2024 ambulatory BASSAM AGUILAR Not Available Start: 05-07-2024 ambulatory Morgan Trinidad Therapist Work Phone: Pain Recovery Comment on above: next step, resources Start: 05-07-2024 E-mail encounter fro m caregiver Morgan Trinidad Therapist Work Phone: Pain Recovery Start: 05-06-2024 End: 05-06-2024 [facility] Morgan Trinidad Therapist Work Phone: Pain Recovery Comment on above: Adjustment disorder with depressed mood (Primary Dx); Complex regional pain syndrome type II of right lower limb; Chronic toe pain, right foot Start: 04-24-2024 End: 04-24-2024 ambulatory HAIDER HICKMAN Facility:[facility] Start: 04-24-2024 End: 04-24-2024 Patient encounter [...] type (HCC) Start: 04-23-2024 End: 04-23-2024 ambulatory MD Haider Hickman Facility: [facility] Start: 04-03-2024 End: 04-03-2024 ambulatory HERBERTH ARAUJO Facility:[facility] Start: 03-26-2024 End: 03-26-2024 ambulatory Haider Hickman Facility: [facility] Start: 03-19-2024 Telephone encounter Herberth meyers MD, PhD Work Phone: Pain Management Comment on above: Nurse Triage Call Start: 03-08-2024 End: 03-08-2024 ambulatory Haider Hickman Facility:[facility] Start: 03-07-2024 End: 03-07-2024 ambulatory Haider Hickman Facility: [facility] Start: 02-29-2024 End: 02-29-2024 ambulatory HERBERTH ARAUJO Facility:[facility] Start: 02-29-2024 End: 02-29-2024 Patient encounter [...] type (HCC) Start: 02-22-2024 End: 02-22-2024 ambulatory BASSAM AGUILAR Not Available Start: 02-06-2024 Telephone encounter Francoise hemphill MD Work Phone: Pain Management Start: 02-05-2024 End: 02-05-2024 ambulatory FRANCOISE SINGLETARY Facility:[facility] Start: 02-05-2024 End: 02-05-2024 Patient encounter procedure Francoise Singletary MD Work Phone: Pain Management Comment on above: Chronic toe pain, ri ght foot (Primary Dx); Painful diabetic neuropathy (HCC); Class 3 severe obesity with serious comorbidity and body mass index (BMI) of 40.0 to 44.9 in adult, unspecified obesity type (HCC) Start: 01-24-2024 End: 01-24-2024 ambulatory Araceli BERMUDEZ Facility:[facility] Start: 01-22-2024 End: 01-22-2024 ambulatory MACY MCPHERSON Not Available Start: 01-04-2024 End: 01-04-2024 ambulatory Araceli BERMUDEZ Facility:[facility] Start: 01-03-2024 End: 01-03-2024 ambulatory MIHIR PARISI Not Available Start: 12-29-2023 End: 12-29-2023 ambulatory Araceli BERMUDEZ Facility:[facility] Start: 12-26-2023 End: 12-26-2023 ambulatory Haider Hickman Facility:[facility] Start: 12-14-2023 End: 12-14-2023 ambulatory BASSAM AGUILAR Not Available Start: 12-04-2023 End: 12-05-2023 ambulatory Miguelangel Mac MD Facility:[facility] Start: 10-18-2023 End: 10-18-2023 ambulatory Araceli BERMUDEZ Facility:[facility] Start: 10-16-2023 End: 10-17-2023 ambulatory Miguelangel Mac MD Facility:[facility] [place] Start: 10-05-2023 End: 10-05-2023 ambulatory BASSAM AGUILAR Not Available Start: 09-25-2023 End: 09-26-2023 ambulatory Miguelangel Mac MD Facility:[facility] [place] Start: 09-20-2023 End: 09-20-2023 ambulatory Haider Rohit Marylou Facility:[facility] Start: 09-12-2023 End: 09-12-2023 ambulatory Tondra Mapus Other [facility] Other Start: 09-12-2023 Telephone encounter Tondra Mapus [facility] Start: 09-11-2023 (DM) Diabetes Tondra Mapus [facility] Start: 09-11-2023 End: 09-12-2023 ambulatory MD Scarlet Johnson Work Phone: [facility] Other Start: 09-11-2023 End: 09-11-2023 Discharged Recurring MD Scarlet Johnson Work Phone: [facility] Work Phone: Start: 09-11-2023 End: 09-11-2023 Patient encounter procedure MD Scarlet Johnson Work Phone: [facility] Work Phone: Start: 08-24-2023 End: 08-24-2023 Patient encounter procedure MD Scarlet Johnson Work Phone: [facility] Start: 08-24-2023 End: 08-24-2023 ambulatory MD Scarlet Johnson Work Phone: [facility] Work Phone: Start: 08-24-2023 Office outpatient ne w 60 minutes Eligio Soni [facility] Start: 08-24-2023 End: 08-24-2023 Patient encounter procedure MD Scarlet Johnson Work Phone: [facility] Work Phone: Start: 08-21-2023 End: 08-21-2023 ambulatory Haider Bee Marylou Facility:[facility] Start: 07-26-2023 End: 07-26-2023 ambulatory Haider Bee Marylou Facility:[facility] Start: 06-19-2023 End: 06-20-2023 ambulatory Miguelangel Mac MD Facility: [place] Start: 06-14-2023 End: 06-14-2023 ambulatory Tondra Mapus Other [facility] Other Start: 06-14-2023 Telephone encounter Tondra Mapus [facility] Start: 06-09-2023 End: 06-09-2023 ambulatory Carito West Other [facility] Other Start: 06-09-2023 Nursing evaluation o f patient and report Carito West [facility] Start: 06-09-2023 Registered Recurring MD Scarlet franks Work Phone: [facility] Work Phone: Start: 06-05-2023 End: 06-06-2023 ambulatory Miguelangel Mac MD Facility: [place] Start: 05-31-2023 End: 05-31-2023 ambulatory Tondra Mapus Other [facility] Other Start: 05-31-2023 Telephone encounter Tondra Mapus [facility] Start: 05-22-2023 End: 05-23-2023 ambulatory Miguelangel [facility] Start: 03-07-2023 Follow-up encounter Terry moreno [facility] Start: 03-07-2023 End: 03-08-2023 ambulatory Terry Kelley [facility] Other Start: 02-17-2023 End: 02-17-[address] JOVITA WOODARD . Facility:[facility] Start: 02-14-2023 (DM) Diabetes Tondra Mapus [facility] Start: 02-14-2023 End: 02-14-2023 ambulatory Tondra Mapus Other [facility] Other Start: 01-20-2023 ([facility] RD FU) [facility] F/ U Registerd Flume Ride Operator Carito West [facility] Start: 01-20-2023 End: 01-20-2023 ambulatory Carito West Other [facility] Other Start: 01-05-2023 End: 01-05-2023 ambulatory Terry Kelley Other [facility] Other Start: 01-05-2023 Follow-up encounter Terry moreno [facility] Start: 12-30-2022 End: 12-31-2022 ambulatory MARY APARICIO Facility:[facility] Start: 12-29-2022 End: 12-30-[address] BRITTNY MORALES Facility:[facility] Start: 12-21-2022 End: 01-28-[address] SCARLET JOHNSON . Facility:[facility] Start: 12-09-[address] SCARLET JOHNSON . Facil ity:[facility] Start: 12-08-2022 End: 12-09-[address] MORGAN ROJO Facility:[facility] Start: 11-25-2022 End: 11-26-[address] TERRY KELLEY Facility:[facility] Start: 11-24-2022 ([facility] WMNI) WMN Init ial Provider Carito West [facility] Start: 11-24-2022 End: 11-24-2022 ambulatory Carito West Other [facility] Other Start: 11-22-2022 End: 11-22-2022 ambulatory Tondra Mapus Other [facility] Other Start: 11-22-2022 Nursing evaluation o f patient and report Aldo Middleton [facility] Start: 11-18-2022 End: 11-18-2022 ambulatory Terry Kelley Other [facility] Other Start: 11-18-2022 Nutrition therapy Terry Kelley [facility] Start: 11-08-2022 End: 11-09-[address] SCARLET JOHNSON . Facility:[facility] Start: 11-07-2022 (DM) Diabetes Aldo Middleton [facility] Start: 11-07-2022 End: 11-07-2022 ambulatory Aldo Middleton Other [facility] Other Start: 10-18-2022 (RD) Grain Roaster [facility] Start: 10-18-2022 End: 10-18-2022 ambulatory Carito West Other [facility] Other Start: 08-18-2022 End: 08-19-[address] BRITTNY MORALES Facility:[facility] Start: 2022 ([facility] DB FU) [facility] Diabetes F/U Carito West [facility] Start: 2022 End: 08-11-[address] ARACELI BERMUDEZ [facility] Other Start: 07-29-2022 End: 07-30-[address] SCARLET JOHNSON . Facility:[facility] Start: 07-27-2022 (DM) Diabetes Danieldra Eim [facility] Start: 07-27-2022 End: 07-27-2022 ambulatory Tondrboom Grantus Other [facility] Other Start: 06-08-2022 (Flume Ride Operator) Monika moreno [facility] Start: 06-08-2022 End: 06-08-2022 ambulatory Carito West Other [facility] Other Start: 04-21-2022 (DM) Diabetes Tondra Mapus [facility] Start: 04-21-2022 End: 04-21-2022 ambulatory Tondra Mapus Other [facility] Other Start: 04-21-2022 Telephone encounter Tondra Mapus [facility] Start: 04-07-2022 End: 04-08-[address] SCARLET JOHNSON . Facility: Start: 10-21-2021 (DM) Diabetes Tondra Mapus [facility] Start: 10-21-2021 End: 10-21-2021 ambulatory Tondra Mapus Other [facility] Other Start: 07-21-2021 Office outpatient ne w 45 minutes Morgan Kunz [facility] Procedures Date Procedure Procedure Detail Performing Clinician Start: 08-24-2023 Duplex scan of lower limb veins MD Scarlet Johnson Work Phone: Plan of Treatment Date Care Activity Detail Author Start: 07-23-2025 ambulatory Ambulatory Facility:[facility] Start: 05-15-2025 ambulatory Ambulatory Facility:[facility] Start: 10-17-2024 End: 10-17-2024 Patient encounter procedure 10/17/2024 10:20 AM EST Procedure Visit [facility] [address] [facility] [address] [place] [address] Bassam Aguilar, DPSherrell [address] [facility] [address] [place] [address] [facility] Start: 09-24-2024 ambulatory Ambulatory Facility:[facility] Start: 08-29-2024 End: 08-29-2024 Patient encounter procedure 08/29/2024 9:30 AM EST Office Visit [facility] [address] [place] [id number] Matthew May, DO [address] [place] [id number] Arrived [facility] Comment on above: Arrived Start: 08-27-2024 End: 08-27-2024 Patient encounter procedure 08/27/2024 3:15 PM EST Office Visit [facility] [place] [address] [place] [address] Gallo Gayle, DO [address] [place] [id number] [facility] [address] Start: 08-14-2024 End: 08-14-2024 Patient encounter procedure 08/14/2024 10:00 AM EST Office Visit Neurology Pain [address] [place] [address] Chiqui Robles MD [address] [place], [place] [id number] 1 Month Follow Up Neurology Pain Comment on above: 1 Month Follow Up Start: 2024 RSV Vaccine (1 - 1-dose 75+ series) RSV Vaccine (1 - 1-dose 75+ series) [facility] Start: 08-08-2024 End: 08-08-2024 Patient encounter procedure [facility] Comment on above: Diabetes mellitus due to underlying cond ition with diabetic polyneuropathy, 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 mcc insulin use ([facility]) (Primary Dx); Pain due to onychomycosis of toenails of both feet; Amputation of toe of right foot ([facility]) Start: 08-06-2024 End: 08-06-2024 Patient encounter procedure 08/06/2024 9:45 AM EDT Office Visit [facility] [address] [facility] [place] [id number] Khai Heard, DO [address] [place] [place] [address] [facility] Start: 07-31-2024 End: 07-31-2024 Patient encounter procedure [facility] Comment on above: Arrived Start: 07-24-2024 End: 07-24-2024 Patient encounter procedure [facility] Comment on above: Arrived Start: 07-23-2024 End: 07-23-2024 Patient encounter procedure 07/23/2024 9:45 AM EDT Office Visit [facility] [address] [facility] [address] [place] [address] Arlen Sanchez, [address] [facility] [address] [place] [address] Internal derangement of left shoulder (Primary Dx); Arthritis of left acromioclavicular joint; Complete tear of left rotator cuff, 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 traumatic [facility] Comment on above: Internal derangement of left shoulder (P rimary Dx); Arthritis of left acromioclavicular joint; Complete tear of left rotator cuff, 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 traumatic Start: 06-09-2024 Covid-19 Vaccine ( season) Covid-19 Vaccine ( season) [facility] Start: 06-09-2024 Influenza vaccination [facility] Start: 06-07-2024 End: 06-07-2024 ambulatory 06/07/2024 12:30 PM EDT [facility] [address] [phone] Britney Hyde, PhD [address] [phone] [facility] Comment on above: [facility] Start: 05-06-2024 End: 05-06-2024 ambulatory 05/06/2024 9:00 AM EDT [facility] [address] [place] [address] Morgan Trinidad, Therapist [address] [phone] PAIN PSYCH Pain Recovery Comment on above: PAIN PSYCH Start: 04-17-2024 End: 04-17-2024 Patient encounter procedure 04/17/2024 10:00 AM EDT Office Visit Pain Management [address] [phone] Eufemia Ortiz PA-C [address] [place] [address] SUTURAL REMOVAL Pain Management Comment on above: SUTURAL REMOVAL Start: 04-03-2024 End: 04-03-2024 Admission to same day surgery center 04/03/2024 10:00 AM EDT - 04/03/2024 11:05 AM EDT Surgery Pain Management [address] [phone] Herberth Araujo MD, PhD [address] [place] [address] Right L4 and L5 DRG Trial Pain Management Comment on above: Right L4 and L5 DRG Trial Start: 04-03-2024 End: 04-03-2024 Prq impltj nstim electrode array epidural PERCUTANEOUS IMPLANT LEAD NEUROSTIM EPIDURAL TRIAL Chronic toe pain, right foot Complex regional pain syndrome type II of right lower limb 04/03/2024 10:00 AM EDT [facility] Start: 04-03-2024 Subsequent hospital visit by physician 04/03/2024 10:00 AM EDT Hospital Encounter Pain Management [address] [place] [address] Herberth Araujo MD, PhD [address] [place] [address] Chronic toe pain, right foot [M79.674, G89.29], Complex regional pain syndrome type II of right lower limb [G57.71] Pain Management Comment on above: Chronic toe pain, right foot [M79.674, G 89.29], Complex regional pain syndrome type II of right lower limb [G57.71] Start: 10-09-2023 Advance Directive Discussion Advance Directive Discussion [facility] Start: 10-09-2023 Behavioral Health Screening Behavioral Health Screening [facility] Start: 06-09-2023 Covid-19 Vaccine ( season) Covid-19 Vaccine ( season) [facility] Start: 10-16-2019 Pneumococcal Vaccine: 65+ Years (2 of 2 - PCV) Pneumococcal Vaccine: 65+ Years (2 of 2 - PCV) [facility] Start: 2014 Pneumococcal Vaccine: 65+ (1 of 1 - PCV) Pneumococcal Vaccine: 65+ (1 of 1 - PCV) [facility] Start: 2009 RSV Vaccine (1 - 1-dose 60+ series) RSV Vaccine (1 - 1-dose 60+ series) [facility] Start: 2009 RSV Vaccine (1 - Risk 60-74 years 1-dose series) RSV Vaccine (1 - Risk 60-74 years 1-dose series) [facility] Start: 1999 Shingrix Vaccine (1 of 2) Shingrix Vaccine (1 of 2) [facility] Start: 1994 Diabetes Screening Diabetes Screening [facility] Start: 1994 Screening for malignant neoplasm of colon [facility] Start: 1984 Lipid panel Lipid Screening [facility] Start: 1968 Urine microalbumin profile DTaP,Tdap,Td Vaccine (1 - Tdap) [facility] Start: 1967 Annual PCP Team Chronic Disease Visit Annual PCP Team Chronic Disease Visit [facility] Start: 1967 Anxiety Screening Anxiety Screening [facility] Start: 1967 Depression Screening Depression Screening [facility] Start: 1967 Hepatitis B surface antibody level LDL Cholesterol [facility] Start: 1967 Hepatitis C screening Hepatitis C Screening [facility] Start: 1959 Diabetic foot examination Diabetic Foot Exam [facility] Start: 1959 Glaucoma screening Dilated Retinal Exam [facility] Start: 1959 Hepatitis B screening Urine Albumin:Creatinine Ratio [facility] Start: 1955 Pneumococcal Vaccine: 65+ (1 of 2 - PCV) Pneumococcal Vaccine: 65+ (1 of 2 - PCV) [facility] Start: 1954 Hemoglobin A1c measurement HbA1C [facility] Start: 1949 Screening for malignant neoplasm of colon [facility] Immunizations Immunization Date Immunization Notes Care Provider [facility] 07-31-2024 influenza virus vaccine, unspecified formulation Khai Heard DO Work Phone: [facility] 06-15-2023 influenza virus vaccine, unspecified formulation Arlen Sanchez DO Work Phone: [facility] 12-30-2020 COVID-19 Vaccine Moderna - Documentation Purposes Only Morgan Claudioaminta Other [facility] 12-02-2020 COVID-19 Vaccine Moderna - Documentation Purposes Only Morgan Kunz Other [facility] Payers Date Payer Category Payer Private Health Insurance [employer] [id number] 2021 Unknown 2017 Self-pay [id number] 2017 Unknown [id number] 2012 Medicare 2012 Medicare [id number] 1959 Medicare [id number] 2.16.840.1.605565.19 1959 Unknown [id number] 2.16.840.1.023446.19 1949 Unknown [id number] 2.16.840.1.271731.3.579.2. 593 1949 Unknown [id number] 2.16.840.1.481181.3.579.2. 593 1949 Unknown [id number] 2.16.840.1.426940.3.579.2. 593 1949 Unknown [id number] 2.16.840.1.956292.3.579.2. 593 1949 Unknown [id number] 2.16.840.1.590065.3.579.2. 593 1949 Unknown [id number] 2.16.840.1.567433.3.579.2. 593 1949 Unknown [id number] 2.16.840.1.391435.3.579.2. 593 1949 Unknown [id number] 2.16.840.1.515366.3.579.2. 593 1949 Unknown [id number] 2.16.840.1.316854.3.579.2. 593 1949 Unknown [id number] 2.16.840.1.280143.3.579.2. 593 1949 Unknown [id number] 2.16.840.1.828645.3.579.2. 593 1949 Unknown [id number] 2.16.840.1.704312.3.579.2. 593 1949 Unknown [id number] 2.16.840.1.541973.3.579.2. 196 1949 Unknown [id number] 2.16.840.1.144129.3.579.2. 196 1949 Unknown [id number] 2.16.840.1.605826.3.579.2. 196 1949 Unknown [id number] 2.16.840.1.753425.3.579.2. 196 1949 Unknown [id number] 2.16.840.1.383500.3.579.2. 196 1949 Unknown [id number] 2.16.840.1.743077.3.579.2. 196 1949 Unknown [id number] 2.16.840.1.906398.3.579.2. 1949 Unknown [id number] 2.16.840.1.899270.3.579.2 1949 Unknown [id number] 2.16.840.1.551617.3.579.2. 1949 Unknown [id number] 2.16.840.1.659784.3.579.2 1949 Unknown [id number] 2.16.840.1.045447.3.579.2 1949 Unknown [id number] 2.16.840.1.959639.3.579.2 1949 Unknown [id number] 2.16.840.1.487096.3.579.2 1949 Unknown [id number] 2.16.840.1.299320.3.579.2 1949 Unknown [id number] 2.16.840.1.386766.3.579.2 1949 Unknown [id number] 2.16.840.1.983273.3.579.2 1949 Unknown [id number] 2.16.840.1.372695.3.579.2 1949 Unknown [id number] 2.16.840.1.222190.3.579.2 1949 Unknown [id number] 2.16.840.1.814629.3.579.2 1949 Unknown [id number] 2.16.840.1.734582.3.579.2 1949 Unknown [id number] 2.16.840.1.063680.3.579.2 1949 Unknown [id number] 2.16.840.1.061678.3.579.2. 1949 Unknown [id number] 2.16.840.1.785993.3.579.2. 1949 Unknown [id number] 2.16.840.1.920179.3.579.2. 1949 Unknown [id number] 2.16.840.1.980137.3.579.2. 1949 Unknown [id number] 2.16.840.1.345753.3.579.2. 1949 Unknown [id number] 2.16.840.1.107803.3.579.2. 1949 Unknown [id number] 2.16.840.1.352511.3.579.2. 1949 Unknown [id number] 2.16.840.1.240670.3.579.2 1949 Unknown [id number] 2.16.840.1.507211.3.579.2 1949 Unknown [id number] 2.16.840.1.652688.3.579.2 1949 Unknown [id number] 2.16.840.1.652537.3.579.2. 1258 1949 Unknown [id number] 2.16.840.1.398281.3.579.2. 1258 1949 Unknown [id number] 2.16.840.1.981328.3.579.2. 1258 1949 Unknown [id number] 2.16.840.1.211680.3.579.2. 1258 1949 Unknown [id number] 2.16.840.1.957748.3.579.2. 1258 1949 Unknown [id number] 2.16.840.1.080985.3.579.2. 1258 1949 Unknown [id number] 2.16.840.1.133109.3.579.2. 1258 1949 Unknown [id number] 2.16.840.1.245158.3.579.2. 1258 1949 Unknown [id number] 2.16.840.1.051064.3.579.2. 1258 1949 Unknown [id number] 2.16.840.1.996334.3.579.2. 1258 1949 Unknown [id number] 2.16.840.1.637359.3.579.2. 1258 1949 Unknown [id number] 2.16.840.1.839797.3.579.2. 1258 1949 Unknown [id number] 2.16.840.1.781096.3.579.2. 1258 1949 Unknown [id number] 2.16.840.1.290094.3.579.2. 1258 1949 Unknown [id number] 2.16.840.1.775561.3.579.2. 1258 1949 Unknown [id number] 2.16.840.1.697369.3.579.2. 1258 1949 Unknown [id number] 2.16.840.1.179765.3.579.2. 1258 1949 Unknown [id number] 2.16.840.1.577732.3.579.2. 1258 1949 Unknown [id number] 2.16.840.1.824334.3.579.2. 1258 1949 Unknown [id number] 2.16.840.1.225723.3.579.2. 1258 1949 Unknown [id number] 2.16.840.1.547491.3.579.2. 1258 Unknown Standard [employer] Ins [id number] Unknown [id number] 2.16.840.1.570517.3.579.2. 531 Unknown [id number] Unknown [id number] Social History Date Type Detail Facility Unknown if ever smoked [facility] Other Start: 02-05-2024 End: 08-29-2024 Sex Assigned At [facility] Start: 1950 Sex Assigned At Male [facility] Start: 07-09-2018 End: 05-18-2023 Tobacco smoking status [facility] Never smoked tobacco (finding) [facility] Tobacco smoking status [facility] Tobacco smoking consumption unknown [facility] Start: 02-05-2024 End: 08-29-2024 History of Social function [facility] National Score (1-100), lower number is lower risk 67 [facility] Start: 1950 Sex Assigned At Not on file [facility] Start: 05-18-2023 End: 02-29-2024 Tobacco use and exposure Smokeless tobacco non-user [facility] Start: 02-29-2024 End: 08-29-2024 Alcohol intake Ex-drinker (finding) [facility] NEGATED: Highlighted rowStart: NINF History of tobacco use Passive smoker [facility] Medical Equipment Procedure Code Equipment Code Equipment Original Text Equipment Identifier Dates ESWL, one kidney STENT CONTOUR 4 .8FR X 22-30CM FDA Start: 06-07-2018 ESWL, one kidney STENT CONTOUR 4 .8FR X 22-30CM FDA Start: 06-07-2018 Start: 12-11-2017 Lead Axium Slimt ip 1mm 5mm Space 50mm Neurostimulator Front Load 4 [id number] Start: 04-03-2024 Clinical Notes 07-21-2021 to 08-29-2024 Matthew May DO - 08/29/2024 9:30 AM Chiqui Live MD - 08/14/2024 10:29 AM Claudia Burgos MD - 08/14/2024 9:55 AM Iván Aguilar DPM - 08/08/2024 9:40 AM EDT Note Date & Type Note Facility 08-29-2024 History of Present illness Narrative Images from the original note were not included. Chief complaint: Neuropathic pain Subjective Dong Whitmore, 74 y.o., male Dong presents today for a neurologic consult at the request of Dr. Hickman for neuropathic pain. He is here with his and daughter. Patient states he is having pain in bilateral feet. He describes this as pins and needles. His middle toe on his right foot is what bothers him the most. He states the pain on the toe is throbbing. This is intermittent. He has been experiencing this pain for about 15 years. Patient states when he walks or stands this can feel better. He has not noticed any triggers to this. His daughter states after he works a lot during the day this will bother him more at night or the next day. The patient is diabetic and states his diabetes are under control. He is currently on pregabalin which is helpful to an extent. He was on gabapentin in the past which was not helpful. He has had EMGs in the past he believes a few years ago in the [place] office. Review of Systems Constitutional: Negative for appetite change, fatigue and fever. Respiratory: Negative for cough, shortness of breath and wheezing. Cardiovascular: Negative for chest pain, palpitations and leg swelling. Gastrointestinal: Negative for abdominal pain, constipation, diarrhea and nausea. Musculoskeletal: Positive for gait problem and myalgias. Negative for arthralgias. Neurological: Positive for numbness. Negative for dizziness, tremors and headaches. Past Medical History: Diagnosis Date COVID-19 vaccine series completed Diabetes (CMS/HCC) Hypercholesterolemia (CMS/HCC) Hypertension (CMS/HCC) PVD (peripheral vascular disease) (CMS/HCC) Past Surgical History: Procedure Laterality Date CARDIAC SURGERY 2013 stents CARPAL TUNNEL RELEASE Right PROSTATE SURGERY TOE AMPUTATION TOE SURGERY Right 3, Family History Problem Relation Name Age of Onset Hypertension Mother Heart disease Mother Stroke Mother Diabetes Father Stroke Father Hypertension Father Social History Tobacco Use Smoking status: Never Passive exposure: Never Smokeless tobacco: Never Substance Use Topics Alcohol use: Not Currently Allergies: Cefuroxime, Celecoxib, Cephalosporins, Diflunisal, Dulaglutide, Ibuprofen, Liraglutide, Metformin hcl, Naproxen, Nsaids, Rofecoxib, and Sulindac Vitals: 08/29/24 0927 BP: 134/76 Pulse: 64 SpO2: 95% Body mass index is 45.93 kg/m . weight: 276 lb Neurologic exam: Mental status: Awake, alert to person, place and time. Recent and remote memory are intact. Language is fluent without aphasia. Attention and concentration are normal. Fund of knowledge is appropriate for level of education. Cranial nerves: CN II: Visual acuity is normal. Visual menard full to confrontation. CN III, IV, : pupils equal round and reactive to light. Extraocular movements intact. No ptosis present. CN V: Facial sensation is normal. CN VII: Full and symmetric facial movement. CN VIII: Hearing is normal to finger rub bilaterally: CN IX and X: Palate elevates symmetrically. CN XI: Shoulder shrug is normal bilaterally. CN XII: Tongue is midline without atrophy or fasciculation. Motor: RUE Strength deltoid, , biceps , triceps , wrist extensors , wrist flexor , ballpoint pens assembler strength 5/5. LUE Strength deltoid , biceps , triceps , wrist extensors , wrist flexor , ballpoint pens assembler strength 5/5. RLE Strength illopsoas, quadriceps, tibialis anterior, and gastrocnemius strength 5/5. amputation of the 1st, 2nd and partial 3rd toe LLE Strength illopsoas, quadriceps, tibialis anterior, and gastrocnemius strength 5/5. Normal tone x4 extremities. Bulk is normal. Sensory: Decreased vibratory sensation in the bilateral lower extremities at the great toe Reflexes: RUE biceps reflex 0 brachioradialis reflex 0 . LUE biceps reflex 0 brachioradialis reflex 0 . RLE knee reflex 0 . LLE knee reflex 0. Del Real's sign negative. Coordination: Asslti-rw-dnkz testing and rapid alternating movements are normal Gait: Normal Review and summary of old records: Assessment/Plan Diagnoses and all orders for this visit: Right foot pain Diabetic polyneuropathy It is my impression that the patient has substantial pain in the 3rd toe on the right foot. This has been longstanding. The patient has amputations of the 1st and 2nd toe and partial amputation of the 3rd toe. This seems to worsen from a pain perspective and the patient is seated and seems to create substantial difficulty in certain positions. This would certainly be strange to be an intrinsic problem to the toe itself and have it changed with the patient's seated versus standing. I wonder if this is related to radicular pathology that is presenting differently secondary to the patient's severe diabetic polyneuropathy and altering his sensory perception of the issue. Plan: I suggest close follow up with pain management as the patient is already established with pain management in [place] and suggest that they can see them for consideration of a epidural at L5 and S1 on the right. I feel that this attempt to block these nerve roots would indicate if the problem is radicular in nature. I did consider EMG. However, with severe polyneuropathy suspected this would be of limited utility. The patient has already tried gabapentin and is on Lyrica. I do not feel that further medication intervention from my perspective is appropriate. Patient has also had consideration given to ketamine infusions with pain management in [place]. I suggested, if epidural is not successful, that they consider follow up thereof. The patient can follow up with us on an as-needed basis. Thank you for consultation. Pt has been fully educated on their diagnosis, lab results, treatment options, follow up plan, return instructions, and discussion of mental health issues documented in this encounter [facility] 08-14-2024 Note HNO ID: [id number] Author: CHIQUI ROBLES MD Service: ? Author Type: Physician Type: Progress Notes Filed: 08/26/2024 16:34 Note Text: [facility] STAFF PHYSICIAN NOTE OF PERSONAL INVOLVEMENT IN CARE IMPRESSION: Complex regional pain syndrome type ii of right lower limb Chronic toe pain, right foot Class 3 severe obesity with serious comorbidity and body mass index (bmi) of 40.0 to 44.9 in adult, unspecified obesity type (hcc) Adjustment disorder with depressed mood (primary encounter diagnosis) Sleepy on current meds, had a recent fall. No benefit from memantine Discussed risks with ketamine Continued pain, but more stable. Interested in what other option Dr Araujo had. Unsure of what this is. PLAN: Stop memantine Continue current medications I have reviewed the documentation above obtained [...] case and management of the patient's care. As noted, the patient's clinical situation is complex and serious with significant comorbidity of pain and functional limitations. This requires higher levels of time, intensity, and expense with longitudinal care and support. Psychotherapy Add-on Progress Note Due to medical condition and comorbid psychological and behavioral concerns - psychotherapy was utilized during the visit. Kqaq-qm-pfkk time: 35932 (16-37 mins) actual time spend in psychotherapy 18 minutes Type of therapeutic intervention:Supportive Target symptoms: Pain coping skills and Acceptance and adapting Progress/Session notes:processing Interactive Complexity: None STAFF PHYSICIAN:: Chiqui Robles MD DATE of SERVICE: 08/14/2024 [facility] 08-14-2024 History of Present illness Narrative [facility] STAFF PHYSICIAN NOTE OF PERSONAL INVOLVEMENT IN CARE IMPRESSION: Complex regional pain syndrome type ii of right lower limb Chronic toe pain, right foot Class 3 severe obesity with serious comorbidity and body mass index (bmi) of 40.0 to 44.9 in adult, unspecified obesity type (hcc) Sleepy on current meds, had a recent fall. No benefit from memantine Discussed risks with ketamine Continued pain, but more stable. Interested in what other option Dr Araujo had. Unsure of what this is. PLAN: Stop memantine Continue current medications I have reviewed the documentation above obtained [...] case and management of the patient's care. As noted, the patient's clinical situation is complex and serious with significant comorbidity of pain and functional limitations. This requires higher levels of time, intensity, and expense with longitudinal care and support. Psychotherapy Add-on Progress Note Due to medical condition and comorbid psychological and behavioral concerns - psychotherapy was utilized during the visit. Jupr-nh-kils time: 23567 (16-37 mins) actual time spend in psychotherapy 18 minutes Type of therapeutic intervention:Supportive Target symptoms: Pain coping skills and Acceptance and adapting Progress/Session notes:processing Interactive Complexity: None STAFF PHYSICIAN:: Chiqui Robles MD DATE of SERVICE: 08/14/2024 [facility] [place] August 14, 2024 This is a face to face visit. SUBJECTIVE: Pain in R foot is improved since last visit, but still present. On Memantine 10 mg daily now, which does not help. Middle R toe was amputated (06/2024). Saw no improvement in pain with this. Restarted Lyrica from PCP shortly afterwards (which has been helpful). Currently, taking Lyrica, Wellbutrin, Effexor, Tizanidine, Memantine. Has some sedation with taking Lyrica and Tizanidine and had a fall when he tripped on a curb. PCP wants to get EMG. Also has back pain. OBJECTIVE: PHYSICAL EXAM: There were no vitals taken for this visit. GENERAL APPEARANCE: Well appearing, well-hydrated, well nourished and alert NEURO/PSYCH: cranial nerves 2-12 intact, speech normal, mental status intact MUSCULOSKELETAL: Amputations of first, second, and third toe on R foot. Numbness from neuropathy in R foot extends to past ankle. Intact strength in R foot with ankle flexion/extension. ASSESSMENT: Dong Whitmore is a 74 year old male with PMH of T2DM (c/b peripheral neuropathy) and CPRS who presents for follow-up appointment for R foot pain. Last seen in clinic on 04/24/2024. Since then, has had third toe of R foot amputated and restarted Lyrica, which has been helpful for pain but causes sedation. CRPS with R foot pain T2DM with diabetic neuropathy PLAN: Discontinue Memantine due to lack of benefit. Continue Tizanidine (4 mg TID) and Lyrica (75 mg BID) without changes for now (managed and prescribed by PCP). Can consider discontinuing Lyrica and starting Trileptal if sedation is more bothersome. Claudia Chilel MD, AMANDA August 14, 2024 10:37 AM documented in this encounter [facility] 08-14-2024 Note HNO ID: [id number] Author: CLAUDIA CHILEL MD Service: ? Author Type: Resident Type: Progress Notes Filed: 08/14/2024 10:51 Note Text: [facility] [place] August 14, 2024 This is a face to face visit. SUBJECTIVE: Pain in R foot is improved since last visit, but still present. On Memantine 10 mg daily now, which does not help. Middle R toe was amputated (06/2024). Saw no improvement in pain with this. Restarted Lyrica from PCP shortly afterwards (which has been helpful). Currently, taking Lyrica, Wellbutrin, Effexor, Tizanidine, Memantine. Has some sedation with taking Lyrica and Tizanidine and had a fall when he tripped on a curb. PCP wants to get EMG. Also has back pain. OBJECTIVE: PHYSICAL EXAM: There were no vitals taken for this visit. GENERAL APPEARANCE: Well appearing, well-hydrated, well nourished and alert NEURO/PSYCH: cranial nerves 2-12 intact, speech normal, mental status intact MUSCULOSKELETAL: Amputations of first, second, and third toe on R foot. Numbness from neuropathy in R foot extends to past ankle. Intact strength in R foot with ankle flexion/extension. ASSESSMENT: Dong Whitmore is a 74 year old male with PMH of T2DM (c/b peripheral neuropathy) and CPRS who presents for follow-up appointment for R foot pain. Last seen in clinic on 04/24/2024. Since then, has had third toe of R foot amputated and restarted Lyrica, which has been helpful for pain but causes sedation. CRPS with R foot pain T2DM with diabetic neuropathy PLAN: Discontinue Memantine due to lack of benefit. Continue Tizanidine (4 mg TID) and Lyrica (75 mg BID) without changes for now (managed and prescribed by PCP). Can consider discontinuing Lyrica and starting Trileptal if sedation is more bothersome. Claudia Chilel MD, AMANDA August 14, 2024 10:37 AM [facility] 08-08-2024 History of Present illness Narrative Patient: Dong Whitmore : 1950 PCP: Haider Hickman MD SUBJECTIVE This is a 73 y.o. male that presents today as a dm2 and had partial toe amputations to the right hallux and right 2nd digit and recent partial amputation of right 3rd digit. States he had relief with prior nerve injection to the area by partner and suggested possible sciatica issue. This was according to patient history today. States negative issues with drainage from the toe Pt denies n/f/v/c. Patient presents today with a CC of elongated, thick nails. Pt states nails have been elongated and thick for many years and cause pain with ambulation in shoegear. Pt has tried previous treatment with minimal relief. Pt presents today for nail care and treatment with dm2 Hx of back issues and pain with hx if DDD. Allergies: Allergies Allergen Reactions Cefuroxime Unknown Celecoxib Unknown Cephalosporins Other Reaction(s): Unknown Reaction Diflunisal Unknown Dulaglutide Unknown Ibuprofen Unknown Liraglutide Unknown Metformin Hcl Unknown Naproxen Unknown Nsaids Other Rofecoxib Unknown Sulindac Unknown Past Medical History: Past Medical History: Diagnosis Date COVID-19 vaccine series completed Diabetes ([facility]) Hypercholesterolemia ([facility]) Hypertension ([facility]) PVD (peripheral vascular disease) ([facility]) Medications: Current Outpatient Medications: acarbose (Precose) 50 MG tablet, Take 50 mg by mouth in the morning and 50 mg at noon and 50 mg in the evening. Take with meals., Disp: , Rfl: acetaminophen-codeine (Tylenol w/ Codeine #3) 300-30 MG tablet, , Disp: , Rfl: buPROPion SR (Wellbutrin SR) 150 MG 12 hr tablet, Take 150 mg by mouth in the morning., Disp: , Rfl: buPROPion XL (Wellbutrin XL) 300 MG 24 hr tablet, Take 300 mg by mouth Daily, Disp: , Rfl: Calcium Carb-Cholecalciferol 600-5 MG-MCG tablet, Calcium 600, Disp: , Rfl: clindamycin (Cleocin) 300 MG capsule, Take 300 mg by mouth in the morning and 300 mg before bedtime., Disp: , Rfl: Januvia 100 MG tablet, Take 100 mg by mouth in the morning., Disp: , Rfl: LORazepam (Ativan) 0.5 MG tablet, Take 1 tablet (0.5 mg) by mouth See administration instructions for 1 dose 1 tablet by mouth 1 hour prior to MRI, must have someone drive you to the appt and home from the appt, Disp: 1 tablet, Rfl: 0 losartan (Cozaar) 50 MG tablet, Take 50 mg by mouth at bedtime., Disp: , Rfl: memantine (Namenda) 10 MG tablet, Take 10 mg by mouth Daily, Disp: , Rfl: metoprolol succinate XL (Toprol-XL) 50 MG 24 hr tablet, Take 50 mg by mouth in the morning and 50 mg before bedtime., Disp: , Rfl: metoprolol tartrate (Lopressor) 50 MG tablet, Take 50 mg by mouth in the morning and 50 mg before bedtime., Disp: , Rfl: nitroglycerin (Nitrostat) 0.4 MG SL tablet, PLACE 1 TABLET UNDER TONGUE EVERY 5 MINS, UP TO 3 DOSES NEEDED FOR CHEST PAIN, Disp: , Rfl: pioglitazone (Actos) 30 MG tablet, Take 30 mg by mouth in the morning., Disp: , Rfl: simvastatin (Zocor) 40 MG tablet, Take 40 mg by mouth at bedtime., Disp: , Rfl: sodium bicarbonate 650 MG tablet, Take 1,300 mg by mouth in the morning and 1,300 mg in the evening and 1,300 mg before bedtime., Disp: , Rfl: tiZANidine (Zanaflex) 4 MG tablet, Take 4 mg by mouth at bedtime., Disp: , Rfl: traMADol (Ultram) 50 MG tablet, Take 1 tablet (50 mg) by mouth every 6 (six) hours if needed for severe pain or moderate pain, Disp: 20 tablet, Rfl: 0 triamcinolone (Kenalog) 0.1 % ointment, Apply topically 2 (two) times a day as needed (Rash) Avoid face, armpits and groin., Disp: 60 g, Rfl: 11 venlafaxine (Effexor) 37.5 MG tablet, Take 37.5 mg by mouth in the morning and 37.5 mg before bedtime., Disp: , Rfl: Social History: Social History Socioeconomic History Marital status: Spouse name: Not on file Number of children: Not on file Years of education: Not on file Highest education level: Not on file Occupational History Not on file Tobacco Use Smoking status: Never Passive exposure: Never Smokeless tobacco: Never Vaping Use Vaping status: Unknown Substance and Sexual Activity Alcohol use: Not Currently Drug use: Never Sexual activity: Defer Partners: Decline to Answer Other Topics Concern Not on file Social History Narrative Not on file Social Drivers of Health Financial Resource Strain: Not on file Food Insecurity: Not on file Transportation Needs: Not on file Physical Activity: Not on file Stress: Not on file Social Connections: Not on file Intimate Partner Violence: Unknown (11/30/2023) [facility] from [facility] [place] Safety [employer] Environment Fear of Current or Ex-Partner: Not on file Emotionally Abused: Not on file Physically Abused: Not on file Sexually Abused: Not on file Physically or Sexually Abused: Not on file Housing Stability: Not on file ROS: General: denies fever, chills, fatigue, malaise OBJECTIVE LE EXAM: DERM: Elongated thick yellow crumbly nails digits 1 through 7 Positive hair growth b/l feet. Partial toe amputations of right 2nd digit and right hallux Right 3rd digit has well-healed distal digit of right 2nd toe with negative erythema negative drainage Plus 1 pitting edema to bilateral ankles with scab like lesions to the right leg VASC: Positive palpable pedal pulses bilaterally NEURO: Gross sensation intact to bilateral feet ORTHO: Positive pain on palpation to nails 1 through 7 Digital contracture to the distal aspect of the DIPJ region of right 3rd toe with positive palpation to the distal digit of the right 3rd toe ASSESSMENT 1. Diabetes 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, 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 mcc insulin use ([facility]) 2. Pain due to onychomycosis of toenails of both feet 3. Amputation of toe of right foot ([facility]) PLAN Debride nails in length and thickness digits 1 through 10 Patient educated today on proper diabetic foot care including monitoring feet daily for any signs of infection openings in the skin or irregularities to both feet. Patient had a diabetic neurological exam today to both their feet and discussed proper shoe gear Patient continue with normal shoe gear and has informed me that he has been switched to a new medication for his peripheral neuropathy type pain that is of some benefit for him. He continues to follow up with spinal surgery Bassam Aguilar DPM documented in this encounter [facility] 08-07-2024 Note [place] [facility] Note Reason for cardiology visit: Follow-up HPI: Dong Whitmore is a 73 y.o. male with prior history of CAD and previous PCI of left circumflex artery, and RCA MARGUERITE in 2012, hypertension, and hyperlipidemia He is here for follow-up because of uncontrolled hypertension. He states that overall he has been doing well. He denies any chest discomfort at rest or with exertion. He admits some exertional dyspnea but he thinks because of his hips pain. He denies orthopnea or paroxysmal nocturnal dyspnea or dizziness or palpitations. He admits to trace edema. ROS: All systems were reviewed and they were negative except for the positive findings noted above in the history Past Medical History He has a past medical history of CAD (coronary artery disease), DM type 2 (diabetes mellitus, type 2) ([facility]), HLD (hyperlipidemia), HTN (hypertension), Neuropathy, and ULISES (obstructive sleep apnea). Surgical History He has a past surgical history that includes Prostatectomy; Cardiac catheterization; Coronary angioplasty with stent; and Foot surgery. Social History He reports that he has never smoked. He has never used smokeless tobacco. He reports that he does not currently use alcohol. No history on file for drug use. Family History Family History Problem Relation Name Age of Onset Coronary artery disease Other Diabetes Other Allergies Cefuroxime, Celecoxib, Diflunisal, Metformin, Naproxen, Nsaids (non-steroidal anti-inflammatory drug), Rofecoxib, Sulindac, and Victoza 2-gee [liraglutide] Medications Current Outpatient Medications: acarbose (Precose) 25 mg tablet, Take 50 mg by mouth with breakfast, with lunch, and with evening meal., Disp: , Rfl: aspirin 81 mg EC tablet, in the morning., Disp: , Rfl: blood pressure test kit-large kit, 1 kit in the morning., Disp: 1 kit, Rfl: 0 buPROPion SR (Wellbutrin SR) 150 mg 12 [...] A DAY SUBCUTANEOUSLY DIRECTED, Disp: , Rfl: omega 1-jhw-pbi-fish oil (Fish OiL) 1,200 (144-216) mg capsule, Take 1,200 mg by mouth in the morning., Disp: , Rfl: pioglitazone (Actos) 15 mg [...] MOUTH TWICE A DAY, Disp: , Rfl: Last Recorded Vitals Visit Vitals Ht 1.727 m (5' 8 ) BMI 38.16 kg/m??? Smoking Status Never BSA 2.34 m??? Physical Examination: GENERAL: alert and oriented x3, well developed, in no acute distress. HEAD: atraumatic, normocephalic. EYES: GIOVANNI, EOMI. NECK: trachea midline, no JVD present, no carotid bruits present. CARDIAC: S1, S2 present. RRR. No murmur, rubs, or gallops. RESPIRATORY: CTAB, no increased effort of breathing, no rales, rhonchi, or wheezing. ABDOMEN: soft, nontender, nondistended. EXTREMITIES: no lower extremity edema. No rash/skin discoloration present. NEURO: strength/sensation equal and symmetric in bilateral upper and lower extremities. PSYCH: appropriate mood, affect, and judgement. Labs: 07/08/2024 White count 7.3, hemoglobin 13.5, hematocrit 42.8, platelets 172 Sodium 138, potassium 4.3, BUN 25, creatinine 1.4, GFR 56, AST 19, ALT 28, alk phos 86, Total protein 7.4, albumin 3.7 Cholesterol 128, HDL 51, LDL 54, triglyceride 115 Last Images: EKG 12/29/2023 showed sinus rhythm with first-degree AV block and right bundle branch block Echo 07/08/2024 at [facility] Echo 12/30/2022 Echo 11/15/2016 Nuclear stress test 12/29/2022 at [facility] EKG portion Assessment and Plan: Coronary artery disease, status post prior PTCA of the left circumflex artery and RCA in 2012 Last stress test 12/30/2022 which was negative for ischemia with normal ejection fraction He is on aspirin, metoprolol, and simvastatin. Clinically stable Severe LVH on recent echo probably due to uncontrolled hypertensi (more content not included)... [facility] 07-31-2024 History of Present illness Narrative Images from the original note were not included. Patient: Dong Whitmore : 1950 PCP: Haider Hickman MD SUBJECTIVE This is a 73 y.o. male that presents today The patient is here status post distal Syme amputation of 3rd digit procedure. Postop week 4 .5 They deny fevers, chills, nausea, vomiting, calf pain and shortness of breath. Patient is not improving. Allergies: Allergies Allergen Reactions Cefuroxime Unknown Celecoxib Unknown Cephalosporins Other Reaction(s): Unknown Reaction Diflunisal Unknown Dulaglutide Unknown Ibuprofen Unknown Liraglutide Unknown Metformin Hcl Unknown Naproxen Unknown Nsaids Other Rofecoxib Unknown Sulindac Unknown Past Medical History: Past Medical History: Diagnosis Date COVID-19 vaccine series completed Diabetes ([facility]) Hypercholesterolemia ([facility]) Hypertension ([facility]) PVD (peripheral vascular disease) ([facility]) Medications: Current Outpatient Medications: acarbose (Precose) 50 MG tablet, Take 50 mg by mouth in the morning and 50 mg at noon and 50 mg in the evening. Take with meals., Disp: , Rfl: acetaminophen-codeine (Tylenol w/ Codeine #3) 300-30 MG tablet, , Disp: , Rfl: buPROPion SR (Wellbutrin SR) 150 MG 12 hr tablet, Take 150 mg by mouth in the morning., Disp: , Rfl: buPROPion XL (Wellbutrin XL) 300 MG 24 hr tablet, Take 300 mg by mouth Daily, Disp: , Rfl: Calcium Carb-Cholecalciferol 600-5 MG-MCG tablet, Calcium 600, Disp: , Rfl: clindamycin (Cleocin) 300 MG capsule, Take 300 mg by mouth in the morning and 300 mg before bedtime., Disp: , Rfl: Januvia 100 MG tablet, Take 100 mg by mouth in the morning., Disp: , Rfl: LORazepam (Ativan) 0.5 MG tablet, Take 1 tablet (0.5 mg) by mouth See administration instructions for 1 dose 1 tablet by mouth 1 hour prior to MRI, must have someone drive you to the appt and home from the appt, Disp: 1 tablet, Rfl: 0 losartan (Cozaar) 50 MG tablet, Take 50 mg by mouth at bedtime., Disp: , Rfl: memantine (Namenda) 10 MG tablet, Take 10 mg by mouth Daily, Disp: , Rfl: metoprolol succinate XL (Toprol-XL) 50 MG 24 hr tablet, Take 50 mg by mouth in the morning and 50 mg before bedtime., Disp: , Rfl: metoprolol tartrate (Lopressor) 50 MG tablet, Take 50 mg by mouth in the morning and 50 mg before bedtime., Disp: , Rfl: nitroglycerin (Nitrostat) 0.4 MG SL tablet, PLACE 1 TABLET UNDER TONGUE EVERY 5 MINS, UP TO 3 DOSES NEEDED FOR CHEST PAIN, Disp: , Rfl: pioglitazone (Actos) 30 MG tablet, Take 30 mg by mouth in the morning., Disp: , Rfl: simvastatin (Zocor) 40 MG tablet, Take 40 mg by mouth at bedtime., Disp: , Rfl: sodium bicarbonate 650 MG tablet, Take 1,300 mg by mouth in the morning and 1,300 mg in the evening and 1,300 mg before bedtime., Disp: , Rfl: tiZANidine (Zanaflex) 4 MG tablet, Take 4 mg by mouth at bedtime., Disp: , Rfl: traMADol (Ultram) 50 MG tablet, Take 1 tablet (50 mg) by mouth every 6 (six) hours if needed for severe pain or moderate pain, Disp: 20 tablet, Rfl: 0 triamcinolone (Kenalog) 0.1 % ointment, Apply topically 2 (two) times a day as needed (Rash) Avoid face, armpits and groin., Disp: 60 g, Rfl: 11 venlafaxine (Effexor) 37.5 MG tablet, Take 37.5 mg by mouth in the morning and 37.5 mg before bedtime., Disp: , Rfl: Review of systems: Constitutional: Denies fever, chills, nausea, vomiting GI: Denies abdominal pain, cramping, loose stool, gastric ulcers Musculoskeletal: Denies low back pain, knee pain, systemic arthritis Neurologic: Denies burning, tingling, transient paralysis OBJECTIVE Physical Examination: DERM: Positive hair growth to b/l feet with good skin turgor noted. Negative openings in skin. Medial right leg the ulceration is almost completely healed no overt signs of infection VASC: DP /PT were palpable bilateral. Capillary refill time < 3 seconds Digits 1-5 bilateral NEURO: Schriever Crista 5.07 monofilament was intact B/L. Vibratory sensation was intact B/L Musculoskeletal: Muscle strength was +5 over 5 all intrinsic and extrinsic muscles tested. Negative Homans test noted Surgical site evaluation: The incision site is healing well without signs infection. Minimal swelling noted. Consistent with the patient's level of surgery consistent with time frame postoperatively. ASSESSMENT 1. Acquired deformity of right toe 2. 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 Amputation of right great toe ([facility]) PLAN Patient had no improvement with diagnostic injection. I feel the this point the pain is not related to his toe but appears to be from his low back sciatic issue spoke with his primary care physician they plan to work him up for low back concerns AUGUSTIN Horn documented in this encounter [facility] 07-24-2024 History of Present illness Narrative Images from the original note were not included. Patient: Dong Whitmore : 1950 PCP: Haider Hickman MD SUBJECTIVE This is a 73 y.o. male that presents today The patient is here status post distal Syme amputation of 3rd digit procedure. Postop week 3.5 They deny fevers, chills, nausea, vomiting, calf pain and shortness of breath. Pain level is being managed with ice elevation and pain medication. They have been relatively compliant with her postoperative care. Patient can only take a muscle relaxer for pain relief he states the toe feels exactly the same as prior to the surgery. But he is having postsurgical pain Allergies: Allergies Allergen Reactions Cefuroxime Unknown Celecoxib Unknown Cephalosporins Other Reaction(s): Unknown Reaction Diflunisal Unknown Dulaglutide Unknown Ibuprofen Unknown Liraglutide Unknown Metformin Hcl Unknown Naproxen Unknown Nsaids Other Rofecoxib Unknown Sulindac Unknown Past Medical History: Past Medical History: Diagnosis Date COVID-19 vaccine series completed Diabetes ([facility]) Hypercholesterolemia ([facility]) Hypertension ([facility]) PVD (peripheral vascular disease) ([facility]) Medications: Current Outpatient Medications: acarbose (Precose) 50 MG tablet, Take 50 mg by mouth in the morning and 50 mg at noon and 50 mg in the evening. Take with meals., Disp: , Rfl: acetaminophen-codeine (Tylenol w/ Codeine #3) 300-30 MG tablet, , Disp: , Rfl: buPROPion SR (Wellbutrin SR) 150 MG 12 hr tablet, Take 150 mg by mouth in the morning., Disp: , Rfl: buPROPion XL (Wellbutrin XL) 300 MG 24 hr tablet, Take 300 mg by mouth Daily, Disp: , Rfl: Calcium Carb-Cholecalciferol 600-5 MG-MCG tablet, Calcium 600, Disp: , Rfl: clindamycin (Cleocin) 300 MG capsule, Take 300 mg by mouth in the morning and 300 mg before bedtime., Disp: , Rfl: Januvia 100 MG tablet, Take 100 mg by mouth in the morning., Disp: , Rfl: LORazepam (Ativan) 0.5 MG tablet, Take 1 tablet (0.5 mg) by mouth See administration instructions for 1 dose 1 tablet by mouth 1 hour prior to MRI, must have someone drive you to the appt and home from the appt, Disp: 1 tablet, Rfl: 0 losartan (Cozaar) 50 MG tablet, Take 50 mg by mouth at bedtime., Disp: , Rfl: memantine (Namenda) 10 MG tablet, Take 10 mg by mouth Daily, Disp: , Rfl: metoprolol succinate XL (Toprol-XL) 50 MG 24 hr tablet, Take 50 mg by mouth in the morning and 50 mg before bedtime., Disp: , Rfl: metoprolol tartrate (Lopressor) 50 MG tablet, Take 50 mg by mouth in the morning and 50 mg before bedtime., Disp: , Rfl: nitroglycerin (Nitrostat) 0.4 MG SL tablet, PLACE 1 TABLET UNDER TONGUE EVERY 5 MINS, UP TO 3 DOSES NEEDED FOR CHEST PAIN, Disp: , Rfl: pioglitazone (Actos) 30 MG tablet, Take 30 mg by mouth in the morning., Disp: , Rfl: simvastatin (Zocor) 40 MG tablet, Take 40 mg by mouth at bedtime., Disp: , Rfl: sodium bicarbonate 650 MG tablet, Take 1,300 mg by mouth in the morning and 1,300 mg in the evening and 1,300 mg before bedtime., Disp: , Rfl: tiZANidine (Zanaflex) 4 MG tablet, Take 4 mg by mouth at bedtime., Disp: , Rfl: traMADol (Ultram) 50 MG tablet, Take 1 tablet (50 mg) by mouth every 6 (six) hours if needed for severe pain or moderate pain, Disp: 20 tablet, Rfl: 0 triamcinolone (Kenalog) 0.1 % ointment, Apply topically 2 (two) times a day as needed (Rash) Avoid face, armpits and groin., Disp: 60 g, Rfl: 11 venlafaxine (Effexor) 37.5 MG tablet, Take 37.5 mg by mouth in the morning and 37.5 mg before bedtime., Disp: , Rfl: Review of systems: Constitutional: Denies fever, chills, nausea, vomiting GI: Denies abdominal pain, cramping, loose stool, gastric ulcers Musculoskeletal: Denies low back pain, knee pain, systemic arthritis Neurologic: Denies burning, tingling, transient paralysis OBJECTIVE Physical Examination: DERM: Positive hair growth to b/l feet with good skin turgor noted. Negative openings in skin. Medial right leg the ulceration is almost completely healed no overt signs of infection VASC: DP /PT were palpable bilateral. Capillary refill time < 3 seconds Digits 1-5 bilateral NEURO: Schriever Crista 5.07 monofilament was intact B/L. Vibratory sensation was intact B/L Musculoskeletal: Muscle strength was +5 over 5 all intrinsic and extrinsic muscles tested. Negative Homans test noted Surgical site evaluation: The incision site is healing well without signs infection. Minimal swelling noted. Consistent with the patient's level of surgery consistent with time frame postoperatively. Sutures remain intact without signs of dehiscence. ASSESSMENT 1. Acquired deformity of right toe PLAN Toe is well coapted patient is still having pain at the toe turned and a baby related to the toe itself. Today I performed a diagnostic block of the 2nd digit with 3 ml of 2 percent lidocaine plain he would the contact me and let me know the block helped. If no improvement will send him for an EMG nerve conduction study and coordinate this with his primary care physician for possible sciatic nerve issues as the patient relates he has significant pain we sits on the toilet which radiates down the back of his leg. AUGUSTIN Horn documented in this encounter [facility] 07-23-2024 History of Present illness Narrative Images from the original note were not included. HISTORY OF PRESENT ILLNESS: Dong Whitmore is an 73 y.o. @ male. Chief complaint LT shoulder pain LT Shoulder: here for MRI results [facility] 07/15/24 8 1/2 weeks ago pt fell, went to [facility] ER on 05/24/24 and had xrays done. He fell down concrete stairs and landed on the LT shoulder. DOI 05/24/24. He also reports running into a TV and hit anterior shoulder about 4-5 weeks ago. Pain at rest 1/10. Pain at worst 5-6/10 with movement. He will get pain superiorly, and lately it is also more deep in the joint . Pain occas radiates into his neck. Denies waking at night. Denies cracking/popping. ROM has improved but its still painful. Denies N/T. Admits swelling in the shoulder, he feels a lump posterior shoulder. Denies pain meds. He is using bengay w/o relief. Occas uses ice and heat both with little relief.. Had subacromial depo medrol injection (06/12/24) with 0% improvement. He has been doing pendulum exercises, he states he gets relief while he does these. TX: LT shoulder xrays [facility] 05/24/24, acetiminophen with codeine, ice, bengay, 06/12/24 subacromial depo medrol injection, MRI [facility] 07/15/24, doing pendulums. Pt is RT handed. MEDICATION: Current Outpatient Medications on File Prior to Visit Medication Sig Dispense Refill acarbose (Precose) 50 MG tablet Take 50 mg by mouth in the morning and 50 mg at noon and 50 mg in the evening. Take with meals. acetaminophen-codeine (Tylenol w/ Codeine #3) 300-30 MG tablet buPROPion SR (Wellbutrin SR) 150 MG 12 hr tablet Take 150 mg by mouth in the morning. buPROPion XL (Wellbutrin XL) 300 MG 24 hr tablet Take 300 mg by mouth Daily Calcium Carb-Cholecalciferol 600-5 MG-MCG tablet Calcium 600 clindamycin (Cleocin) 300 MG capsule Take 300 mg by mouth in the morning and 300 mg before bedtime. Januvia 100 MG tablet Take 100 mg by mouth in the morning. LORazepam (Ativan) 0.5 MG tablet Take 1 tablet (0.5 mg) by mouth See administration instructions for 1 dose 1 tablet by mouth 1 hour prior to MRI, must have someone drive you to the appt and home from the appt 1 tablet 0 losartan (Cozaar) 50 MG tablet Take 50 mg by mouth at bedtime. memantine (Namenda) 10 MG tablet Take 10 mg by mouth Daily metoprolol succinate XL (Toprol-XL) 50 MG 24 hr tablet Take 50 mg by mouth in the morning and 50 mg before bedtime. metoprolol tartrate (Lopressor) 50 MG tablet Take 50 mg by mouth in the morning and 50 mg before bedtime. nitroglycerin (Nitrostat) 0.[address] 1 TABLET UNDER TONGUE EVERY 5 MINS, UP TO 3 DOSES NEEDED FOR CHEST PAIN pioglitazone (Actos) 30 MG tablet Take 30 mg by mouth in the morning. simvastatin (Zocor) 40 MG tablet Take 40 mg by mouth at bedtime. sodium bicarbonate 650 MG tablet Take 1,300 mg by mouth in the morning and 1,300 mg in the evening and 1,300 mg before bedtime. tiZANidine (Zanaflex) 4 MG tablet Take 4 mg by mouth at bedtime. traMADol (Ultram) 50 MG tablet Take 1 tablet (50 mg) by mouth every 6 (six) hours if needed for severe pain or moderate pain 20 tablet 0 triamcinolone (Kenalog) 0.1 % ointment Apply topically 2 (two) times a day as needed (Rash) Avoid face, armpits and groin. 60 g 11 venlafaxine (Effexor) 37.5 MG tablet Take 37.5 mg by mouth in the morning and 37.5 mg before bedtime. No current facility-administered medications on file prior to visit. MEDICAL HISTORY: Past Medical History: Diagnosis Date COVID-19 vaccine series completed Diabetes (CMS/HCC) Hypercholesterolemia (CMS/HCC) Hypertension (CMS/HCC) PVD (peripheral vascular disease) (CMS/HCC) ALLERGIES: Allergies Allergen Reactions Cefuroxime Unknown Celecoxib Unknown Cephalosporins Other Reaction(s): Unknown Reaction Diflunisal Unknown Dulaglutide Unknown Ibuprofen Unknown Liraglutide Unknown Metformin Hcl Unknown Naproxen Unknown Nsaids Other Rofecoxib Unknown Sulindac Unknown VITALS: Visit Vitals Ht 5' 5 Wt 255 lb BMI 42.43 kg/m Smoking Status Never BSA 2.31 m PHYSICAL EXAM: Ortho Exam LEFT SHOULDER ROM 120 abduction, 120 flexion, IR L4 Strength 4/5 Negative lift off Diffuse pain IMAGING: MRI of the shoulder from the [facility] had revealed a full-thickness tear of the supraspinatus and advanced degeneration of the acromioclavicular joint with joint effusion and capsular edema also findings consistent with subscapularis tendon tear and bursitis. The actual study is not available to review at this point in time. There is no mention of the presence or absence of fatty infiltration but my experience with this institution is they do not bother to image beyond the musculotendinous junction. ASSESSMENT: ICD-10-CM 1. Internal derangement of left shoulder M24.812 2. Arthritis of left acromioclavicular joint M19.012 3. Complete tear of left rotator cuff, 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 traumatic M75.122 Ambulatory referral to Orthopaedic Surgery 4. Left shoulder pain, unspecified chronicity M25.512 PLAN: I explained the diagnosis and reviewed treatment options. I answered all of the patient's questions. I discussed options of surgical and non surgical treatment. Risks/benefits of each and chances for success/ failure. Discussion included but was not limited to the risk of infection, blood clot, failure to improve and need for additional surgery. The patient was advised that surgery is not likely to make them pain free. I answered all of the patients questions. I recommend a LT shoulder arthroscopy. I advised the patient that I am resigning from my current practice in the near future and relocating out of state. I recommend referral to another orthopedic surgeon or a surgeon of the patient's choosing. Follow up as needed, any issues/concerns follow up sooner. Dr. Sanchez obtained history and examined the patient, I am acting as scribe for Dr. Sanchez/darion Sanchez D.O. documented in this encounter [facility] 07-19-2024 Note Cardiovascular Medic ine [facility] SUBJECTIVE No chief complaint on file. Dong Whitmore is a 73 y.o. male here for follow-up. HPI PMHx: hypertension, hyperlipidemia, and coronary artery disease (previous PCI to LCx and RCA, MARGUERITE - 2012) Patient presents for follow-up. He denies Complaints or concerns. He denies any chest pain. Denies any shortness of breath. He denies any lower extremity edema, orthopnea, paroxysmal nocturnal dyspnea. Overall, he states that he is doing well. Echocardiogram was performed since his last visit. Echo demonstrates severe left ventricular hypertrophy. Patient reports that his blood pressures are well-controlled at home. However, he admits he does not check this frequently as necessary given his concern about the inaccuracy of his blood pressure cuff. Patient Active Problem List Diagnosis Chest pain Chronic back pain Essential hypertension Gastroesophageal reflux disease Hyperlipidemia Neuropathy Obesity Sleep apnea Type 2 diabetes mellitus (CMS/HCC) Complex regional pain syndrome type II of right lower limb Coronary arteriosclerosis in [place]ski artery Current use of insulin (CMS/HCC) Dietary counseling and surveillance Past Medical History: Diagnosis Date CAD (coronary artery disease) DM type 2 (diabetes mellitus, type 2) ([facility]) HLD (hyperlipidemia) HTN (hypertension) Neuropathy ULISES (obstructive sleep apnea) Family History Problem Relation Name Age of Onset Coronary artery disease Other Diabetes Other Social History Tobacco Use Smoking status: Never Smokeless tobacco: Never Substance Use Topics Alcohol use: Not Currently Allergies Allergen Reactions Cefuroxime Celecoxib Diflunisal Metformin Naproxen Nsaids (Non-Steroidal Anti-Inflammatory Drug) Rofecoxib Sulindac Victoza 2-Gee [Liraglutide] Cardiology ROS: 10 point ROS is performed and is negative unless otherwise specified in HPI. OBJECTIVE Visit Vitals BP 122/71 Pulse 65 Ht 1.727 m (5' 8 ) Wt 114 kg (251 lb) SpO2 95% BMI 38.16 kg/m??? Smoking Status Never BSA 2.34 m??? Medications: Current Outpatient Medications: acarbose (Precose) 25 mg tablet, Take 50 mg by mouth with breakfast, with lunch, and with evening meal., Disp: , Rfl: aspirin 81 mg EC tablet, in the morning., Disp: , Rfl: blood pressure test kit-large kit, 1 kit in the morning., Disp: 1 kit, Rfl: 0 buPROPion SR (Wellbutrin SR) 150 mg 12 [...] A DAY SUBCUTANEOUSLY DIRECTED, Disp: , Rfl: omega 8-afs-qnc-fish oil (Fish OiL) 1,200 (144-216) mg capsule, Take 1,200 mg by mouth in the morning., Disp: , Rfl: pioglitazone (Actos) 15 mg [...] MOUTH TWICE A DAY, Disp: , Rfl: memantine (Namenda) 10 mg tablet, Take 10 mg by mouth in the morning., Disp: , Rfl: Physical Exam Constitutional: Appearance: [...] motion. Cervical back: Neck supple. Right lower leg: Edema present. Left lower leg: Edema present. Comments: +1 BLE edema Skin: General: Skin is warm and dry. Neurological: General: No focal deficit present. Mental Status: He is alert and oriented to person, place, and time. Psychiatric: Mood and Affect: Mood normal. Behavior: Behavior nor (more content not included)... [facility] 07-18-2024 Telephone encounter Note Patient told to schedule an appt to discuss in detail [facility] 07-18-2024 Miscellaneous Notes Patient told to schedule an appt to discuss in detail documented in this encounter [facility] 07-17-2024 Note Patient Education Nephrology Dietary Guidelines [...] ? 8 oz (237 mL) of milk, ktfxsaf-lgdocwuzlzyw-vwryo milk, and calcium-fortifiedfruit juice. Calcium-fortified means that [...] Spinach (cooked), rhubarb, beets, sweet potatoes, and Greenlandic chard. ? Peanuts. ? Potato chips, czech fries, and baked potatoes with skin on. ? Nuts and nut products. ? Chocolate. ? If you regularly take a diuretic medicine, make sure to eat at least 1 or 2 servings of fruits or vegetables that are high in potassium each day. These include: ? Avocado. ? Banana. ? [place], prune, carrot, or tomato juice. ? Baked [...] fish oil, or vitamin B6. ? Take [id number] and prescription medicines only as told by your health care provider. These include suppleme (more content not included)... [facility] 06-26-2024 Note Cardiovascular Medic [facility] SUBJECTIVE Chief Complaint Patient presents with Coronary Artery Disease Hypertension Dong Whitmore is a 73 y.o. male here for follow-up. HPI PMHx: hypertension, hyperlipidemia, and coronary artery disease (previous PCI to LCx and RCA, MARGUERITE - 2012) 06/26/2024 He has been having [...] with lymphedema. He follows with endocrinology in [place]. He has MILLER - this is unchanged. [...] is currently at a weightloss program at [facility]. 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 01/23/2023 He is down about 10lbs since [...] Obesity Sleep apnea Type 2 diabetes mellitus ([facility]) Complex regional pain syndrome type II of right lower limb Coronary arteriosclerosis in [place] artery Current use of insulin ([facility]) Dietary counseling and surveillance Past Medical History: Diagnosis Date CAD (coronary artery disease) DM type 2 (diabetes mellitus, type 2) ([facility]) HLD (hyperlipidemia) HTN (hypertension) Neuropathy [...] venlafaxine 37.5 mg (more content not included)... [facility] 06-26-2024 Note Patient here for 1 y ear follow up CAD, hypertension, and hyperlipidemia. Had lipid panel this past December. Had foot surgery last week. Denies chest pain, SOB, palpitations, and lightheadedness/syncope. 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 Review of Systems Cardiovascular: Positive for leg swelling (RLE). Musculoskeletal: Positive for joint pain. All other systems reviewed and are negative. [facility] 06-07-2024 Note HNO ID: [id number] Author: BRITNEY HYDE, PhD Service: ? Author Type: Psychologist Type: Progress Notes Filed: 06/07/2024 14:24 Note Text: [facility] Session I have communicated my name and active licensure. The patient's identity and physical location were verified at the time of this visit. Either the patient or their legal home office representative has been informed of the risks [...] a copy of the consent form on [employer]. The patient consented to a virtual visit and their location was confirmed. Patient location: [facility] confirmed Patient Name: Dong Whitmore CC#: [id number] Date of service: June 07, 2024 Subjective: [...] to explore additional pain management education Britney Hyde, PhD [phone] [facility] 06-07-2024 History of Present illness Narrative [facility] Group Session I have communicated my name and active licensure. The patient's identity and physical location were verified at the time of this visit. Either the patient or their legal home office representative has been informed of the risks and benefits of -- and alternatives to -- treatment through virtual visit and consents to proceed with the session remotely. The patient e-signed the Informed Consent for Psychological Evaluation & Care Form, and the [facility] health care insurance benefits, fees for service, emergency procedures, and the limits of confidentiality that may pertain with any given case were discussed with the patient. The patient was given a copy of the consent form on [employer]. The patient consented to a virtual visit and their location was confirmed. Patient location: [facility] confirmed Patient Name: Dong Whitmore CC#: [id number] Date of service: June 07, 2024 Subjective: [...] to explore additional pain management education Britney Hyde, PhD [phone] documented in this encounter [facility] 05-23-2024 Note Patient Education Infectious Disease [...] these instructions at home: Medicines ? Take lbgx-rxh-vhivdkg and prescription medicines only as told by [...] provider. Document Revised: 07/07/2022 Document Reviewed: 07/07/2022 [employer] Patient Education ? 2022 [employer] [facility] 05-13-2024 Note Patient Education Endocrinology Correction [...] changing your diet, or holidays. ? New mzfs-zkt-smedven or prescription medicines. ? Illness, stress, or [...] sure you disc (more content not included)... [facility] 05-06-2024 Note [facility] ID: [id number] Author: MORGAN TRINIDAD, Therapist Service: ? Author Type: Therapist Type: Progress Notes Filed: 05/07/2024 08:20 Note Text: THE [facility] Psychological Evaluation May 06, 2024 Dong Whitmore [facility]#: [id number] I have communicated my name and active licensure. The patient's identity and physical location were verified at the time of this visit. Either the patient or their legal home office representative has been informed of the risks [...] a copy of the consent form on [employer]. The patient consented to a virtual visit and their location was confirmed. Patient location: [place], [place] CPT Code: 5272408 Virtual Psych Diagnotic Eval Appointment Start: 9 AM This 73 year old retired for 15 years (he was having some medical problems, but they offered an early penitentiary package that was attractive at the time) male lives with his in [place], [place]. 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 He was referred by Chiqui Robles MD for psychological evaluation in the context of chronic pain. This consultation was shared with the referral source via the [facility] electronic medical record. He believes the [...] not included)... [facility] 04-24-2024 Note HNO ID: [id number] Author: CHIQUI ROBLES MD Service: ? Author Type: Physician Type: Progress Notes Filed: 04/24/2024 11:26 Note Text: [facility] STAFF PHYSICIAN NOTE OF PERSONAL INVOLVEMENT IN CARE IMPRESSION: Complex regional pain syndrome Adjustment Disorder Tried multiple injections, procedures, surgeries. No benefit Tried SCS and recently DRG without success. Discussed ketamine PLAN: Ketamine infusions Consider scrambler therapy Psych psychology Memantine 5mg Psychotherapy Add-on Progress Note Due to medical condition and comorbid psychological and behavioral concerns - psychotherapy was utilized during the visit. Vwse-au-zmyu time: 49984 (16-37 mins) actual time spend in psychotherapy [...] which included preparing to see the patient, hqjc-bo-wegf patient care, completing clinical documentation, performing a medically appropriate examination, and counseling and educating the patient/family/caregiver. As noted, the patient's clinical situation is complex and serious with significant comorbidity of pain and functional limitations. This requires higher levels of time, intensity, and expense with longitudinal care and support. STAFF PHYSICIAN:: Chiqui Robles MD DATE of SERVICE: 04/24/2024 [facility] 04-24-2024 History of Present illness Narrative [facility] STAFF PHYSICIAN NOTE OF PERSONAL INVOLVEMENT IN CARE IMPRESSION: Complex regional pain syndrome Adjustment Disorder Tried multiple injections, procedures, surgeries. No benefit Tried SCS and recently DRG without success. Discussed ketamine PLAN: Ketamine infusions Consider scrambler therapy Psych psychology Memantine 5mg Psychotherapy Add-on Progress Note Due to medical condition and comorbid psychological and behavioral concerns - psychotherapy was utilized during the visit. Lrlx-qe-tmlo time: 31073 (16-37 mins) actual time spend in psychotherapy [...] which included preparing to see the patient, ngov-ft-sunj patient care, completing clinical documentation, performing a medically appropriate examination, and counseling and educating the patient/family/caregiver. As noted, the patient's clinical situation is complex and serious with significant comorbidity of pain and functional limitations. This requires higher levels of time, intensity, and expense with longitudinal care and support. STAFF PHYSICIAN:: Chiqui Robles MD DATE of SERVICE: 04/24/2024 [facility] [place] April 24, 2024 This is a face [...] Parish Tucker MD documented in this encounter [facility] 04-24-2024 Note HNO ID: [id number] Author: PARISH RIOS MD Service: ? Author Type: Resident Type: Progress Notes Filed: 04/24/2024 11:26 Note Text: [facility] [place] April 24, 2024 This is a face [...] Tucker MD [facility] 03-21-2024 Telephone encounter Note Spoke with patient and notified him of provider recommendations. Verbalized understanding. Emilee So RN [facility] 03-21-2024 Miscellaneous Notes Spoke with patient and notified him of provider recommendations. Verbalized understanding. Emilee So RN Ok per Dr Araujo to proceed with trial - still recommending to keep appt with ID Spoke with patient at request of clinic scheduler as patient has questions about referral to infectious disease. Patient states that he spoke with his PCP, Dr. Hickman ([phone]) who spoke with Dr. Vega in Infectious disease at [facility]. Dr. Hickman ordered lab work at [...] Emilee So RN documented in this encounter [facility] 03-21-2024 Telephone encounter Note Ok per Dr Araujo to proceed with trial - still recommending to keep appt with ID [facility] Work Phone: 03-19-2024 Telephone encounter Note Spoke with patient at request of clinic scheduler as patient has questions about referral to infectious disease. Patient states that he spoke with his PCP, Dr. Hickman ([phone]) who spoke with Dr. Vega in Infectious disease at [facility]. Dr. Hickman ordered lab work at [...] move forward as planned. Emilee So RN [facility] 03-15-2024 Note Microbiology PROCEDURE: Blood Culture Charcoal [R1] SOURCE: Blood BODY SITE: COLLECTED DATE/TIME: 03/08/2024 08:30 EDT RECEIVED DATE/TIME: 03/08/2024 09:02 EDT START DATE/TIME: 03/08/2024 09:02 EDT FREE TEXT SOURCE: michel Hickman MD, Haider Hickman MD, Haider Bee FINAL REPORTS Final Report [] Verified Date/Time: 03/15/2024 12:00 EDT No growth at 7 days. Performing Locations R1: This test was performed at: [facility], [address] [place] [address], [address] [place] [address], [facility] Comment on above: Performed By: #### 1 [id number] #### [facility] [address] [place] [address] 03-15-2024 Note Microbiology PROCEDURE: Blood Culture Charcoal [...] Locations R1: This test was performed at: [facility], [address] [place] [address], [id number] , [place], [facility] Comment on above: Performed By: #### 1 [id number] #### [facility] [address] [place] [id number] 02-29-2024 Instructions Senthil Giraldo MD - 02/29/2024 1:38 PM EDT - Right DRG trial - Obtain psychological evaluation report (patient reports he just had this done ~two months ago) and send to [facility] - ID consult - Rule out infectious risk with due to the dermatitis. - Follow up: Return to clinic for the above procedure documented in this encounter [facility] 02-29-2024 Note HNO ID: [id number] Author: HERBERTH ARAUJO MD, PhD Service: ? Author Type: Physician Type: Progress Notes Filed: 03/18/2024 19:05 Note Text: [facility] Pain Management Department New Patient Consultation Referring Physician: SELF Chief Complaint: Right third toe pain SUBJECTIVE: Dong Whitmore is a 73 year old male with a pertinent past medical history of diabetes who presents to [facility] Management [facility] for the evaluation of right third toe pain. 15-year history of right third toe pain. He notes that over this time the pain has become increasingly severe has caused him significant discomfort and suffering. He has been to many specialists in the [facility] area-over the course of the [...] not included)... [facility] 02-29-2024 History of Present illness Narrative Images from the original note were not included. [facility] Pain Management Department New Patient Consultation Referring Physician: SELF Chief Complaint: Right third toe pain SUBJECTIVE: Dong Whitmore is a 73 year old male with a pertinent past medical history of diabetes who presents to [facility] for the evaluation of right third toe pain. 15-year history of right third toe pain. He notes that over this time the pain has become increasingly severe has caused him significant discomfort and suffering. He has been to many specialists in the [facility]-over the course of the past 15 [...] history of diabetes who presents to [facility] for the evaluation of right third toe pain. He describes a 15-year history of right third toe pain. He notes that over this time the pain has become increasingly severe has caused him significant discomfort and suffering. He has been to many specialists in the [facility] area-over the course of the [...] done ~two months ago) and send to [facility] - ID consult [...] Araujo MD, PhD documented in this encounter [facility] 02-06-2024 Telephone encounter Note Called and spoke to patient. Gave him this message from Dr. Singletary: I'd suggest seeking an appointment with the following doctors who perform DRG implantation: Dr. Carlisle, Dr. Araujo, Dr. Dan, Dr. Cortés Patient voiced understanding. [facility] 02-06-2024 Miscellaneous Notes Called and spoke [...] Carlisle, Dr. Araujo, Dr. Dan, Dr. Moo Heard and Dr. Kamara may do DRG - I'm not sure. Thanks Lela! ----- Message ----- From: Livia Lester PA-C Sent: 02/05/2024 2:07 PM EDT To: Francoise Singletary MD No one on this side of [facility] that I know of does DRG so, we also send to [facility] I would just have Lela [...] I know who do DRG are at [facility]. How do we refer him there? From what I remember, Truman Melendez Costandi and Moo do DRG - do you know of anyone else? documented in this encounter [facility] 02-06-2024 Telephone encounter Note ----- Message from Francoise Singletary MD sent at 02/05/2024 3:12 PM EDT ----- Do you mind calling him and giving him the number to schedule at [facility] to discuss DRG? I'd suggest seeking an appointment with the following doctors who perform DRG implantation: Dr. Carlisle, Dr. Araujo, Dr. Dan, Dr. Moo Heard and Dr. Kamara may do DRG - I'm not sure. Thanks Lela! ----- Message ----- From: Livia Lester PA-C Sent: 02/05/2024 2:07 PM EDT To: Francoise Singletary MD No one on this side of [facility] that I know of does DRG so, we also send to [facility] I would just have Lela [...] I know who do DRG are at [facility]. How do we refer him there? From what I remember, Truman Melendez Costandi and Moo do DRG - do you know of anyone else? [facility] 02-05-2024 Instructions Francoise Singletary MD - 02/05/2024 1:01 PM EDT Thank you for taking the time to come and see me today! Please schedule an appointment for: [facility] Consult Please follow up with [facility] Neurology and Podiatry Please send all of your Podiatry, Neurology, and Pain Management records to us I will refer you to a provider who performs DRG to discuss this Please come back to see me as needed documented in this encounter [facility] 02-05-2024 History of Present illness Narrative Images from the original note were not included. [facility] Pain Management Department Consultation Date: February [...] has been to many specialists in the [facility]-over the course of the past 15 [...] outside records. Unfortunately during our appointment today, [facility] was down I was unable to review [...] I noted before, he appears today while [facility] was down, and I not have access [...] will refer him to a doctor at [facility] for consideration of DRG and to discuss the risks, benefits, alternatives. Diagnostics/Referrals: -Chronic Pain Recovery Program referral Referral to [facility] podiatry, neurology for second opinions 2. [...] the shared EMR documented in this encounter [facility] 02-05-2024 Note HNO ID: [id number] Author: FRANCOISE SINGLETARY MD Service: ? Author Type: Physician Type: Progress Notes Filed: 02/05/2024 15:14 Note Text: [facility] Pain Management Department Consultation Date: February [...] The patient has seen other pain providers. [facility] Neurology OV 02/01/22 Assessment and Plan 71 [...] has been to many specialists in the [place] area-over (more content not included)... [facility] 01-01-2024 Note [phone] [id number] [facility] 09-11-2023 Evaluation note Encounter Date Diagnosis [...] 6.9% 2. Blood glucose levels according to Ambarella 3 cgm download 08/29/23-09/11/23 : Avg glucose 154. >250-3%, >180-20%, 70-180-71%, <70-5%, <54-1%, GMI 7%. 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 Pt reports he did contact [facility]offman and ekaterina'georgiana replacement sensor. Reviewed with pt if glucose [...] Current use of insulin (ICD-10 - Z79.4) [facility] Other 11-16-2023 Evaluation note* Encounter Date Diagnosis Assessment Notes Treatment Notes Treatment Clinical Notes Aug, Cellulitis of right lower extremity (ICD-10 - L03.115) I did thoroughly review all the studies from [place]. I do not have any images to [...] Jessie came to the same result. Dr. Rojo and I both agree that there is nothing surgical to offer this patient with his arteries or veins. Unfortunately he needs traditional conservative management which will include weight loss exercise and compression therapy. [facility] Other 09-01-2023 Evaluation note* Encounter Date Diagnosis [...] He was given a no cut Grif Supervisor [employer] to try and a brochure to buy them online. We discussed the Novolog pen and that he is to use it if his BG before a meal is greater than 150. He was able to dial the pen and knows how to put the pen needle on and deliver the dose. 30 minutes were spent educating the patient by Kamlesh Sparrow RN, [facility]. [facility] Other 05-30-2023 Evaluation note* Encounter Date Diagnosis [...] February, Metabolic syndrome X (ICD-10 - E88.81) [facility] Other 05-09-2023 Evaluation note* Encounter Date Diagnosis [...] last visit, continue with weight loss efforts [facility] Other 04-14-2023 Evaluation note* Encounter Date Diagnosis [...] the following goals: Add flavors to vegetables [facility] Other 03-30-2023 Evaluation note* Encounter Date Diagnosis [...] Dec, Metabolic syndrome X (ICD-10 - E88.81) [facility] Other 03-23-2023 NoteCARDIAC STRESS TEST Requesting Physician: [...] interpreted and reported nuclear myocardial perfusion imaging.[id number]* Encounter Date Diagnosis Assessment Notes [...] following goals: 1) Increase vegetables at dinner [facility] Other 02-14-2023 Evaluation note* Encounter Date Diagnosis [...] him and his by Kamlesh Sparrow RN, [facility]. Reviewed cgm download 11/08/22-11/20/22: Avg glucose 171. >250-1%, >180-30%, 70-180-69%, <70-0%, <540%. CV 15..2%. [employer]Mapus CASHIERS SUPERVISOR, LIFE CYCLE ASSESSMENT ANALYST-C, BC-ADM [facility] Other 02-10-2023 Evaluation note* Encounter Date Diagnosis [...] Nov, Metabolic syndrome X (ICD-10 - E88.81) [facility] Other 01-30-2023 Evaluation note* Encounter Date Diagnosis [...] medication issues. 6. Prescriptions: Acarbose sent to [facility]. Sample baylee 2 cgm given [...] 2 sensor and an office owned, loaner [place]. His phone was not compatible with Baylee 2 or 3, or Dexcom G6. He previously wore the Baylee 14 day system and did not need training on applying the device. I did train him on the use of the reader. He was vgiven samples of Grif Instrument Checker and Skin Tac to help keep the device in place. 45 minutes were spent educating the patient by Kamlesh Sparrow RN, [facility]. [facility] Other 01-10-2023 Evaluation note* Encounter Date Diagnosis [...] program2) Try roasted cronin peppers (recipe provided) [facility] Other 11-11-2022 NotePROCEDURE: XR FOOT RT MIN [...] Electronically authenticated by: BRITTNY MORALES Date: 2022-08-19 06:17[facility]11-02-2022 Evaluation note* Encounter Date Diagnosis Assessment [...] nuts or cheese + crackers -Only likes maldivian cheese,-Recommended 15g or less for snacks; so [...] likes those-Increase vegetable intake-Vegetables: corn, peas, carrots [facility] Other 10-19-2022 Evaluation note* Encounter Date Diagnosis [...] referral to Dr. Kelley for weight management [facility] [id number] Other 08-31-2022 Evaluation note* Encounter Date Diagnosis [...] and his would cook it for him [facility] Other 07-14-2022 Evaluation note* Encounter Date Diagnosis [...] improved glycemia. Pt would likek referral to life skills coordinator volunteer. Note pt has intolerance to glp1 class [...] of glucose/bp control to prevent further nephropathy [facility] Other 01-13-2022 Evaluation note* Encounter Date Diagnosis [...] medication issues. 6. Prescriptions: Pioglitazone sent to [facility] Jessie. Oct, Hyperlipidemia, unspecified hyperlipidemia type (ICD-10 [...] brochure given today. Recommend call if interested. [facility] Other 10-13-2021 Evaluation note* Encounter Date Diagnosis Assessment Notes Treatment Notes Treatment Clinical Notes Jul, SANTANA (nonalcoholic steatohepatitis) (ICD-10 - K75.81) Jul, Other [facility] INDICATED ABOVE F/U HERE PRN [facility] Other Evaluation noteNo InformationNort [facility] Other Evaluation noteNo assessment information available [facility] Work Phone: Evaluation note* Diagnosis Chronic toe pain, right foot- Primary 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, not stated as uncontrolled Class 3 severe obesity with serious comorbidity and body mass index (BMI) of 40.0 to 44.9 in adult, unspecified obesity type (HCC) [facility] Chronic toe pain, right [...] right lower limb [facility] Diagnosis Adjustment disorder with depressed mood- Primary Complex regional pain syndrome type II of right lower limb Chronic toe pain, right foot Class 3 severe obesity with serious comorbidity and body mass index (BMI) of 40.0 to 44.9 in adult, unspecified obesity type (HCC) [facility] Diagnosis Adjustment disorder with depressed mood- Primary Complex regional pain syndrome type II of right lower limb Chronic toe pain, right foot [facility] Diagnosis Adjustment disorder with depressed mood- Primary Complex regional pain syndrome type II of right lower limb Chronic toe pain, right foot [facility] Diagnosis Complex regional pain syndrome type II of right lower limb [facility] Diagnosis Acquired deformity of right toe- Primary Diabetes 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, 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 insulin use (CMS/HCC) documented in this encounter [facility]* Diagnosis Internal derangement of left shoulder- Primary Arthritis of left acromioclavicular joint Complete tear of left rotator cuff, 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 traumatic Left shoulder pain, unspecified chronicity documented in this encounter [facility] HealthcareEvaluation note* Diagnosis Acquired deformity of right toe- Primary Diabetes 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, 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 mcc insulin use (CMS/HCC) Amputation of right great toe (CMS/HCC) documented in this encounter [facility] Healthcare[facility] note* Diagnosis Amputation of toe of right foot (CMS/HCC)- Primary Diabetes 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, 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 insulin use (CMS/HCC) Pain due to onychomycosis of toenails of both feet documented in this encounter [facility] Healthcare[facility] note* Diagnosis Internal derangement of left shoulder- Primary Complete tear of left rotator cuff, 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 traumatic documented in this encounter [facility] Healthcare[facility] note* Diagnosis Complex regional pain syndrome type II of right lower limb Chronic toe pain, right foot Class 3 severe obesity with serious comorbidity and body mass index (BMI) of 40.0 to 44.9 in adult, unspecified obesity type (HCC) [facility] Right foot pain- Primary Pain in soft tissues of limb Diabetic polyneuropathy associated with type 2 diabetes mellitus (CMS/HCC) [facility] N[facility] - Reported* Type Description Date [...] tatarsal and partial right first metatarsal 2-8-19 Hospitalization History see above [facility] Other History general Narrative - Reported* Type [...] Foot Surgery 10/27/2021 Hospitalization History see above [facility] Other History general Narrative - Reported* Type [...] Foot Surgery 10/27/2021 Hospitalization History see above [facility] Reason for visit Narrative* Consultation (Routine) - Closed Specialty Diagnoses / Procedures Referred By Segundo t Referred To Contact Neurology Diagnoses Neuropathic pain, MRI / labs @ [facility] , ref by Dr [facility] OFFICE/OUTPATIENT [facility] 30 MINUTES NEURO NEW PATIENT Haider Hickman MD [address] [place] [address] Phone: tel: fax: Matthew May DO [address] [place] [address] Phone: tel: fax: Referral ID Status Reason Start Date Expiration Date V isits Requested Visits Authorized [id number] Closed Consult and Treat 08/22/2024 02/18/2025 1 1 [facility] Summary Purpose Family History No Family History [...] (HCC) Procedures PROVIDER ORDERED FOLLOW UP OFFICE/OUTPATIENT [facility] MDM 60 MINUTES Chiqui Robles MD [address] [place] [address] Referral ID Status Reason Start Date Expiration Date Visits Requested Visits Authorized [id number] Authorized PCP Requested Referral 06/25/2024 04/24/2025 1 1 Specialty Diagnoses / Procedures Referred By Contac t Referred To Contact Infectious Diseases Diagnoses Dermatitis of lower extremity Procedures CONSULT TO INFECTIOUS DISEASES OFFICE/OUTPATIENT [facility] 60 MINUTES Herberth Araujo MD, PhD [address] [place] [address] Referral ID Status Reason Start Date Expiration Date Visits Requested Visits Authorized [id number] Authorized PCP Requested Referral 02/29/2024 02/28/2025 1 1 Specialty Diagnoses / Procedures Referred By Contac t Referred To Contact Podiatry Diagnoses Chronic toe pain, right foot Painful diabetic neuropathy (HCC) Procedures CONSULT TO PODIATRY OFFICE/OUTPATIENT [facility] 60 MINUTES Francoise Singletary MD [address] [place] [address] Referral ID Status Reason Start Date Expiration Date Visits Requested Visits Authorized [id number] Authorized PCP Requested Referral 02/05/2024 02/04/2025 1 1 Specialty Diagnoses / Procedures Referred By Contac t Referred To [facility] Diagnoses Chronic toe pain, right foot Painful diabetic neuropathy (HCC) Procedures CONSULT TO NEUROLOGY OFFICE/OUTPATIENT [facility] 60 MINUTES Francoise Singletary MD [address] [place] [address] Referral ID Status Reason Start Date Expiration Date Visits Requested Visits Authorized [id number] Authorized PCP Requested Referral 02/05/2024 02/04/2025 1 1 Specialty Diagnoses / Procedures Referred By Contac t Referred To [facility] Diagnoses Chronic toe pain, right foot Painful diabetic neuropathy (HCC) Procedures CONSULT TO [facility] OFFICE/OUTPATIENT [facility] 60 MINUTES Francoise Singletary MD [address] [place] [address] Referral ID Status Reason Start Date Expiration Date Visits Requested Visits Authorized [id number] Pending Review PCP Requested Referral 02/05/2024 02/04/2025 1 1 Additional Source Comments REASON FOR VISIT (unrecogniz ed section and content) Reason Comments Consult Rt foot Reason Comments Established Patient Medication Update Reason Comments Nurse Triage Call Reason Comments New Patient Specialty Diagnoses / Procedures Referred By Contac t Referred To [facility] Diagnoses Complex regional pain syndrome type II of right lower limb Chronic toe pain, right foot Class 3 severe obesity with serious comorbidity and body mass index (BMI) of 40.0 to 44.9 in adult, unspecified obesity type (HCC) Procedures CONSULT TO [facility] ([facility]) OFFICE/OUTPATIENT [facility] 60 MINUTES Herberth Araujo MD, PhD [address] [place] [address] Referral ID Status Reason Start Date Expiration Date Visits Requested Visits Authorized [id number] Pending Review PCP Requested Referral 04/03/2024 04/03/2025 1 1 Reason Comments Consult Reason Comments trek for success Reason Comments Med Change Request Reason Comments Foot/ankle Post-op WK 5 post op Reason Comments Pain Reason Comments Foot/ankle Post-op WK 6 post op Reason Comments Toenail Care Non DM Nails Reason Comments Pain MRI 07/15/24 Specialty Diagnoses / Procedures Referred By Segundo t Referred To Contact Orthopaedic Surgery Diagnoses Complete tear of left rotator cuff, 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 traumatic Arlen Sanchez, DO [address] [facility] [address] [place] [address] Phone: tel: fax: Khai Heard, DO [address] [facility] [place] [address] Phone: tel: fax: Referral ID Status Reason Start Date Expiration Date V isits Requested Visits Authorized [id number] Closed Consult and Treat 07/23/2024 01/19/2025 1 1 Reason Comments Follow Up Specialty Diagnoses / Procedures Referred By Segundo t Referred To Contact Diagnoses Complex regional pain syndrome type II of right lower limb Chronic toe pain, right foot Class 3 severe obesity with serious comorbidity and body mass index (BMI) of 40.0 to 44.9 in adult, unspecified obesity type (HCC) Procedures PROVIDER ORDERED FOLLOW UP OFFICE/OUTPATIENT [facility] 60 MINUTES Chiqui Robles MD [address] [place] [address] Referral ID Status Reason Start Date Expiration Date V isits Requested Visits Authorized [id number] Closed PCP Requested Referral 06/25/2024 04/24/2025 1 1 (unrecognized sect ion and content) No Status Records FoundNo Status Records FoundNo Status Records FoundNo Status Records FoundNo Status Records FoundNo Status Records FoundNo Status Records FoundNo Status Records FoundNo Status Records FoundNo Status Records FoundNo Status Records FoundNo Status Records FoundNo Status Records Found INFORMATION SOURCE (unrecogn ized section and content) DATE CREATED AUTHOR 02/20/2023 [facility] DATE CREATED AUTHOR AUTHOR'S ORGANIZ ATION 11/22/2023 [facility] DATE CREATED AUTHOR AUTHOR'S ORGANIZ ATION 12/15/2023 [facility] DATE CREATED AUTHOR AUTHOR'S ORGANIZ ATION 03/09/2024 [facility] DATE CREATED AUTHOR AUTHOR'S ORGANIZ ATION 03/16/2024 [facility] DATE CREATED AUTHOR AUTHOR'S ORGANIZ ATION 07/19/2024 [facility] DATE CREATED AUTHOR AUTHOR'S ORGANIZ ATION 08/12/2024 [facility] DATE CREATED AUTHOR AUTHOR'S ORGANIZ ATION 08/16/2024 [facility] DATE CREATED AUTHOR AUTHOR'S ORGANIZ ATION 08/28/2024 [facility] DATE CREATED AUTHOR AUTHOR'S ORGANIZ ATION 09/01/2024 [facility] EPIC Care Teams (unrecognized [...] September 11, 2023 End: September 11, 2023 Civil 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 Intern Relationship Specialty Start Date End Date Miguelangel Mac MD [address] [place] [address] 1 [address] [place] [address] Referring Pain Management 01/29/24 Civil Engineering Intern Relationship Specialty Start Date End Date Miguelangel Mac MD [address] [place] [address], [place] [address] Referring Pain Management 01/29/24 Civil Engineering Intern Relationship Specialty Start Date End Date Miguelangel Mac MD [address] [place] [address], [place] [address] Referring Pain Management 01/29/24 Civil Engineering Intern Relationship Specialty Start Date End Date Miguelangel Mac MD [address] [place] [address], [place] [address] Referring Pain Management 01/29/24 Civil Engineering Intern Relationship Specialty Start Date End Date Haider Hickman MD [address] [place] [address], [place] [address] PCP - General Family Medicine 03/26/24 Miguelangel Mac MD [address] [place] [address], [place] [address] Referring Pain Management 01/29/24 Civil Engineering Intern Relationship Specialty Start Date End Date Haider Hickman MD [address] [place] [address], [place] [address] PCP - General Family Medicine 03/26/24 Miguelangel Mac MD [address] [place] [address] [place] [address] Referring Pain Management 01/29/24 Civil Engineering Intern Relationship Specialty Start Date End Date Haider Hickman MD [address] [place] [address] PCP - General Family Medicine 03/26/24 Miguelangel Mac MD [address] [place] [address] Referring Pain Management 01/29/24 Civil Engineering Intern Relationship Specialty Start Date End Date Haider Hickman MD [address] [place] [address] PCP - General Family Medicine 03/26/24 Miguelangel Mac MD [address] [place] [address] Referring Pain Management 01/29/24 Civil Engineering Intern Relationship Specialty Start Date End Date Haidre Hickman MD [address] [place] [address] PCP - General Family Medicine 03/26/24 Miguelangel Mac MD [address] [place] [address] Referring Pain Management 01/29/24 Civil Engineering Intern Relationship Specialty Start Date End Date Haider Hickman MD [address] [place] [address] PCP - General Family Medicine 03/26/24 Miguelangel Mac MD [address] [place] [address] Referring Pain Management 01/29/24 Civil Engineering Intern Relationship Specialty Start Date End Date Haider Hickman MD [address] [facility] [place] [address] PCP - General Family Medicine 05/09/24 Civil Engineering Intern Relationship Specialty Start Date End Date Haider Hickman MD [address] [facility] [place] [address] PCP - General Family Medicine 05/09/24 Civil Engineering Intern Relationship Specialty Start Date End Date Haider Hickman MD [address] [facility] [place] [address] PCP - General Family Medicine 05/09/24 Civil Engineering Intern Relationship Specialty Start Date End Date Haider Hickman MD [address] [facility] [place] [address] PCP - General Family Medicine 05/09/24 Civil Engineering Intern Relationship Specialty Start Date End Date Haider Hickman MD [address] [facility] [place] [address] PCP - General Family Medicine 05/09/24 Civil Engineering Intern Relationship Specialty Start Date End Date Haider Hickman MD [address] [place] [address] PCP - General Family Medicine 03/26/24 Miguelangel Mac MD [address] [place] [address] 1 [address] [place] [address] Referring Pain Management 01/29/24 Civil Engineering Intern Relationship Specialty Start Date End Date Haider Hickman MD [address] [facility] [place] [address] PCP - General Family Medicine 05/09/24 Goals (unrecognized section and content) Goals may be documented in a n alternate section Source Comments (unrecognize d section and content) In the event this informatio n is protected by the Federal Confidentiality of Alcohol and Drug Abuse Patient Records regulations: The Federal rules restrict any use of the information to criminally investigate or prosecute any alcohol or drug abuse patient.[facility] the event this information is protected by the Federal Confidentiality of Alcohol and Drug Abuse Patient Records regulations: The Federal rules restrict any use of the information to criminally investigate or prosecute any alcohol or drug abuse patient.[facility] the event this information is protected by the Federal Confidentiality of Alcohol and Drug Abuse Patient Records regulations: The Federal rules restrict any use of the information to criminally investigate or prosecute any alcohol or drug abuse patient.[facility] the event this information is protected by the Federal Confidentiality of Alcohol and Drug Abuse Patient Records regulations: The Federal rules restrict any use of the information to criminally investigate or prosecute any alcohol or drug abuse patient.[facility] the event this information is protected by the Federal Confidentiality of Alcohol and Drug Abuse Patient Records regulations: The Federal rules restrict any use of the information to criminally investigate or prosecute any alcohol or drug abuse patient.[facility] the event this information is protected by the Federal Confidentiality of Alcohol and Drug Abuse Patient Records regulations: The Federal rules restrict any use of the information to criminally investigate or prosecute any alcohol or drug abuse patient.[facility] the event this information is protected by the Federal Confidentiality of Alcohol and Drug Abuse Patient Records regulations: The Federal rules restrict any use of the information to criminally investigate or prosecute any alcohol or drug abuse patient.[facility] the event this information is protected by the Federal Confidentiality of Alcohol and Drug Abuse Patient Records regulations: The Federal rules restrict any use of the information to criminally investigate or prosecute any alcohol or drug abuse patient.[facility] the event this information is protected by the Federal Confidentiality of Alcohol and Drug Abuse Patient Records regulations: The Federal rules restrict any use of the information to criminally investigate or prosecute any alcohol or drug abuse patient.[facility] the event this information is protected by the Federal Confidentiality of Alcohol and Drug Abuse Patient Records regulations: The Federal rules restrict any use of the information to criminally investigate or prosecute any alcohol or drug abuse patient.[facility] the event this information is protected by the Federal Confidentiality of Alcohol and Drug Abuse Patient Records regulations: The Federal rules restrict any use of the information to criminally investigate or prosecute any alcohol or drug abuse patient.[facility] Hospital[facility] the event this information is protected by the Federal Confidentiality of Alcohol and Drug Abuse Patient Records regulations: The Federal rules restrict any use of the information to criminally investigate or prosecute any alcohol or drug abuse patient.[facility] FOR RECORDS PERTAINING TO PATIENTS WHO [...] BE BASED ON THE PRIMARY CLINICAL RECORDS. [employer] [facility]. provides no warranty or guarantee of the accuracy or completeness of information in this document.
--- NOTE | 2024-09-02 15:47 | P.CN_ITS ---
Consult Note: HPI Data of Consult Patient: known to practice within the last 3 years Consult date: 09/02/24 Requesting Physician: Miguelangel Mac MD Primary Care Provider: HAIDER HICKMAN Consult Narrative Reason for consult: right foot pain Narrative: 74yom who presents for assessment. continues to have pain into right foot. was evaluated at [facility], where he underwent DRG stim trial, but were unable to place leads. recently saw neurologist, who recommended right L5-S1 tfesi. continues in a series of provider directed home exercises >6 weeks, without lasting benefit. uses tizanidine and lyrica. denies adverse med side effects. cc:: CC: Miguelangel Mac MD Review of Systems ROS Status of ROS 10 or more systems reviewed and unremark able except as noted in history and below [facility] Medical History H/O nephrolithotomy with removal of calculi ?Z98.890 - Other specified postprocedural states (ICD-10) ?Z87.442 - Personal history of urinary calculi (ICD-10) Osteoarthritis ?M19.90 - Unspecified osteoarthritis, unspecified site (ICD-10) Amputation of toe ?S98.139A - Complete traumatic amputation of one unspecified lesser toe, initial encounter (ICD-10) H/O renal calculi ?Z87.442 - Personal history of urinary calculi (ICD-10) Obstructive sleep apnea on CPAP ?G47.33 - Obstructive sleep apnea (adult) (pediatric) (ICD-10) Neck pain ?M54.2 - Cervicalgia (ICD-10) Low back pain ?M54.50 - Low back pain, unspecified (ICD-10) Obesity ?E66.9 - Obesity, unspecified (ICD-10) Diabetes ?E11.9 - Type 2 diabetes mellitus without complications (ICD-10) Enlarged prostate ?N40.0 - Benign prostatic hyperplasia without lower urinary tract symptoms (ICD-10) Hypertension ?I10 - Essential (primary) hypertension (ICD-10) Surgical History H/O heart artery stent ?Z95.5 - Presence of coronary angioplasty implant and graft (ICD-10) Meds Home Medications and Allergies Home Medications ?Medication ?Instructions ?Recorded ?Confirmed ?Type acarbose 50 mg tablet 50 mg PO TID 05/24/23 12/04/23 History aspirin 81 mg tablet,delayed 81 mg PO DAILY 05/24/23 12/04/23 History release (Adult Aspirin Regimen) bupropion HCl 150 mg tablet,12 hr 150 mg PO DAILY 05/24/23 12/04/23 History sustained-release losartan 50 mg tablet 75 mg PO DAILY 05/24/23 12/04/23 History metoprolol tartrate 50 mg tablet 50 mg PO BID 05/24/23 12/04/23 History (Lopressor) nitroglycerin 0.4 mg sublingual 0.4 mg sublingual Q5M 05/24/23 12/04/23 History tablet pioglitazone 30 mg tablet 60 mg PO DAILY 05/24/23 12/04/23 History simvastatin 40 mg tablet 40 mg PO DAILY 05/24/23 12/04/23 History sitagliptin phosphate 50 mg tablet 50 mg PO DAILY 05/24/23 12/04/23 History (Januvia) sodium bicarbonate 650 mg tablet 650 mg PO TID PRN stomach upset 05/24/23 12/04/23 History tizanidine 4 mg tablet 4 mg PO DAILY PRN muscle spasticity 05/24/23 12/04/23 History venlafaxine 37.5 mg 37.5 mg PO BID 05/24/23 12/04/23 History capsule,extended release 24 hr acetaminophen 300 mg-codeine 30 mg 1 tab PO Q6H PRN pain 5 days #20 05/25/24 Rx tablet tabs Allergies Allergy/AdvReac Type Severity Reaction Status Date / Time cefuroxime Allergy Verified 12/04/23 08:12 celecoxib (From Celebrex) Allergy Verified 12/04/23 08:12 diflunisal (From Dolobid) Allergy Verified 12/04/23 08:12 dulaglutide (From Trulicity) Allergy Verified 12/04/23 08:12 liraglutide (From Victoza) Allergy Verified 12/04/23 08:12 metformin Allergy Verified 12/04/23 08:12 naproxen (From Naprosyn) Allergy Verified 12/04/23 08:12 NSAIDS (Non-Steroidal Allergy Verified 12/04/23 08:12 Anti-Inflamma rofecoxib (From Vioxx) Allergy Verified 12/04/23 08:12 sulindac (From Clinoril) Allergy Verified 12/04/23 08:12 axetil Allergy Uncoded 12/04/23 08:12 Exam Narrative Exam Narrative: Psych-alert and oriented x 3. Attentive and appropriate, constitutionally normal, displays normal mood and affect per situation. There are no obvious deficits in memory, reasoning, or intellect.? Skin-no obvious rashes, bruising, erythema noted to the patient's area of pain.? Extremities- extremities are warm with minimal edema and palpable pulses. Lumbar-tenderness to palpation noted in the lumbar spine and paraspinal musculature. Pain is not elicited with flexion, extension, and lateral rotation of the lumbar spine. Range of motion is not diminished with these motions. Facet loading maneuvers are negative.? Strength-noted to be unremarkable Sensory-no notable sensory deficits in the bilateral lower extremities to touch or pinprick in all dermatomal distributions with the exception to decreased sensation to the right L5, S1 dermatomal distribution Coordination remains intact.? Gait remains non-antalgic Assessment and Plan Assessment and Plan (1) Pain, foot, right, chronic: (2) Lumbar radiculopathy: Plan 74yom who presents for assessment. failed conservative measures, as noted. imaging reviewed, as noted. given symptoms and imaging, prudent to attempt right l5-s1 tfesi under fluoroscopic guidance, as recommended by his neurologist. he is in agreement. meds reviewed. will increase lyrica to 75mg qid. follow up after procedure.
== END 2024-09-02 14:40 | disposition home or self-care (01) ==
PROVIDERS: PCP Family Medicine; Visit Provider Anesthesiology
DX: M79.671 Pain in right foot (principal); M54.16 Radiculopathy, lumbar region
CPT/HCPCS: G0463

== ENCOUNTER 2024-09-09 08:23 | Day surgery (SDC) | payer MEDICARE, OTHER, SELFPAY ==
[2024-09-09 08:46] VITALS: BP 114/58; PULSE 54; TEMP 36.3; O2SAT 98
--- OUTSIDE RECORDS SUMMARY | 2024-09-09 08:46 | XMS_ITS | CCD ---
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 Name Role Phone Morgan Kunz Unavailable Aldo [...] Unavailable ANDREW, DR BRITTNY Hemphill Consulting Unavailable JONHSON ., DR SCARLET [place] Primary Care Unavailable [...] Unavailable AIDAN, DR ARACELI Treadwell Attending Unavailable DR ARACELI [...] SCARLET [place] Admitting Unavailable Eligio Soni Unavailable [phone] MD Daniel Everett Attending Provider MD Scarlet Johnson Primary Care Provider [phone] MD Eligio Soni Attending Provider MD Scarlet Johnson Primary Care Provider [phone] MD Daniel Everett Attending Provider Eligio Soni Admitting UnavailEligio Patel Attending UnavailScarlet Valerio Primary Care Unavailable Daniel Everett Admitting Unavailable Daniel Everett Attending Unavailable Scarlet Johnson Primary Care Unavailable Terry Kelley Attending Unavailable Scarlet Johnson Primary Care Unavailable Terry Kelley Admitting Unavailable Bubba SCHUSTER, Andrius Unavailable Haider Hickman Attending Unavailable Haider Hickman [...] Referring Unavailable COOK, Araceli P Admitting Unavailable Araceli BERMUDEZ Attending Unavailable Araceli BERMUDEZ P Attending Unavailable Araceli BERMUDEZ P Attending Unavailable Araceli BERMUDEZ Attending Unavailable Haider Hickman Attending Unavailable Haider Hickman Attending Unavailable Haider Hickman MD Primary Care Provider MD Haider Hickman Attending Unavailable DAVID ACOSTA Attending Unavailable MD Haider Hickman Attending Unavailable MD Haider Hickman Attending Unavailable MD Haider Hickman Attending Unavailable MD Haider Hickman Referring Unavailable MD Haider Hickman Attending Unavailable Araceli BERMUDEZ Attending Unavailable DolKajal boateng Attending Unavailable REFERRAL, SELF Referring Unavailable DolceKajal R Attending Unavailable Dolestefani Kajal R Attending Unavailable MD Haider Hickman Attending Unavailable MD Haider Hickman Admitting Unavailable MORGAN TRINIDAD Attending Unavailable HAIDER HICKMAN Primary Care Unavailable CHIQUI ROBLES Referring Unavailable HAIDER HICKMAN Primary Care Unavailable HERBERTH ARAUJO Referring Unavailable MICHIQUI BRUSH Attending Unavailable HERBERTH ARAUJO Attending Unavailable FRANCOISE SINGLETARY Attending Unavailable HAIDER HICKMAN Primary Care Unavailable TRAVIS, DESIMIR Referring Unavailable CHIQUI ROBLES Attending Unavailable HERBERTH ARAUJO Attending Unavailable HERBERTH ARAUJO Admitting Unavailable MORGAN TRINIDAD Referring Unavailable HAIDER HICKMAN Primary Care Unavailable RISBRITNEY PLEITEZ Attending Unavailable BASSAM AGUILAR Attending Unavailable MATTHEW MAY Attending Unavailable HAIDER HICKMAN Referring Unavailable MACY MCPHERSON Attending Unavailable APLINGMIHIR Referring Unavailable APLING, MIHIR Blank Attending Unavailable BASSAM AGUILAR Attending Unavailable BASSAM AGUILAR Attending Unavailable DOLCE, SHYAM Stoner Attending Unavailable DOLCESHYAM Attending Unavailable MARIA GARLEN DAN Attending Unavailable DOLCESHYAM Attending Unavailable APLING, MIHIR Blank Attending Unavailable DOLCEKAJAL Attending Unavailable DOLSHYAM BOATENG Referring Unavailable BASSAM AGUILAR Attending Unavailable APLING, MIHIR Blank Attending Unavailable APLING, MIHIR B Attending Unavailable BASSAM AGUILAR Attending Unavailable BASSAM AGUILAR Attending Unavailable KHAI HEARD Attending Unavailable ARLEN SANCHEZ Referring Unavailable DOLCESHYAM Attending Unavailable ESSENCE WASHBURN Attending Unavailable ELIANE FISHER Attending Unavailable MARY APARICIO Attending Unavailable Giedraitis , Miguelangel Louis Attending Unavailable Giedraitis , Miguelangel Louis Attending Unavailable Giedraitis , Andrius Mirandaytsandy Attending Unavailable Giedraitis , Andri Vytautmariann Attending Unavailable Allergies Allergy Classification Reported Allergen(s) Allergy Type Date of Onset Reaction(s) Facility (20 sources) Cefuroxime; Translations: [cefuroxime] Drug Allergy 06-09-20 Unknown [facility] (20 sources) celecoxib; Translations: [CELECOXIB] Drug Allergy 06-09-20 Unknown [facility] (20 sources) Diflunisal; Translations: [DIFLUNISAL] Drug Allergy 06-09-20 Unknown [facility] (20 sources) dulaglutide Drug Allergy 09-11-20 23 Unknown, g/i [facility] (20 sources) Ibuprofen Drug Allergy Unknown [facility] Other (20 sources) liraglutide; Translations: [LIRAGLUTIDE] Drug Allergy 11-25-19 23 stomach upset [facility] (20 sources) metFORMIN; Translations: [metFORMIN] Drug Allergy 06-09-20 21 stomach upset [facility] (20 sources) Naproxen; Translations: [NAPROXEN] Drug Allergy 06-09-20 Unknown [facility] (20 sources) Sulindac; Translations: [Clinoril] Drug Allergy 07-10-20 15 Unknown [facility] (1 source) Cefuroxime Drug Allergy 07-13-20 16 [facility] (3 sources) celecoxib; Translations: [CeleBREX] Drug Allergy 07-10-20 15 [facility] (3 sources) liraglutide; Translations: [Victoza] Drug Allergy [facility] (1 source) metFORMIN Drug Allergy 06-15-20 17 [facility] (3 sources) Naproxen; Translations: [Naprosyn] Drug Allergy 07-10-20 15 [facility] (3 sources) NSAIDs; Translations: [NSAIDS (NON-STEROIDAL ANTI-INFLAMMATORY DRUG)] Drug allergy (disorder) 07-10-20 [facility] (3 sources) Povidone-Iodine; Translations: [Dolobid] Drug Allergy 07-10-20 15 [facility] (20 sources) Cephalosporins (Antibiotic); Translations: [Cephalosporins] Propensity to adverse reactions 05-29-20 Unknown Reaction [facility] (18 sources) Ibuprofen; Translations: [ibuprofen] Drug Allergy 09-11-20 Unknown [facility] (20 sources) Sulindac; Translations: [sulindac] Drug Allergy 06-09-20 Unknown [facility] (1 source) Cefuroxime Drug Allergy 09-11-20 [facility] (1 source) celecoxib Drug Allergy 09-11-20 [facility] (1 source) Diflunisal Drug Allergy 09-11-20 [facility] (1 source) dulaglutide Drug Allergy 09-11-20 [facility] (1 source) liraglutide Drug Allergy 09-11-20 [facility] (1 source) metFORMIN Drug Allergy 09-11-20 [facility] (1 source) Naproxen Drug Allergy 09-11-20 [facility] (12 sources) Non-steroidal anti-inflammatory agent Drug Intolerance 02-05-20 24 GI Upset [facility] (2 sources) Cefuroxime; Translations: [Cefuroxime Axetil] Drug Allergy [facility] (2 sources) dulaglutide; Translations: [Trulicity] Drug Allergy [facility] (2 sources) Niacin; Translations: [niacin] Drug Allergy [facility] (18 sources) NSAIDs; Translations: [NSAIDs] Propensity to adverse reactions (disorder) 07-23-20 Other [facility] (2 sources) rofecoxib; Translations: [Vioxx] Drug Allergy [facility] (17 sources) celecoxib Drug Allergy 05-18-20 23 Unknown [facility] (17 sources) Diflunisal Drug Allergy 06-09-20 Unknown [facility] (17 sources) dulaglutide Drug Allergy 05-18-20 23 Unknown [facility] (17 sources) liraglutide Drug Allergy 05-18-20 Unknown [facility] (17 sources) metFORMIN Drug Allergy 05-18-20 Unknown [facility] (18 sources) rofecoxib; Translations: [ROFECOXIB] Drug Allergy 06-09-20 Unknown [facility] Medications Current Medications Medication Drug Class(es) [...] Start: 03-12-2023 take 2 tablets by mo ut at bedtime losartan (Cozaar) 50 MG tablet Take 100 mg by mouth at bedtime 03/12/2023 Active Start: 03-12-2023 take 1 tablet by jatin th at bedtime losartan (Cozaar) 50 MG tablet [...] hydrochloride 10 mg oral tablet (20 sources) P-dvjqhw-R-aspartate Receptor Antagonist Start: 05-31-2024 End: 07-22-2024 take [...] DOSES NEEDED FOR CHEST PAIN 09/20/2023 Active [place] 0-Loe-Bvo-Fish Oil (Fish Oil) 1,000 mg (120 mg-180 mg) Capsule (2 sources) Start: 018 [place] 7-Gsv-Wkk-Fish Oil (Fish Oil) 1,000 mg (120 mg-180 [...] 650 mg oral tablet (20 sources) Start: 8 take 2 tablets by mouth in the [...] Orally once a day Active FreeStyle Baylee Montgomery - (7 sources) FreeStyle Baylee Montgomery - use with baylee sensor SQ daily [...] Coronary arteriosclerosis; Translations: [Atherosclerotic heart 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] Onset: 9 [...] shoulder] 07-23-2024 Chronic Other aftercare (1 source) FPC (current) use of aspirin; Translations: [STATE EDITOR CURRENT USE OF ASPIRIN] Onset: 3 Episodic Other aftercare (1 source) Other fpc (current) drug therapy; Translations: [OTH STATE EDITOR CURRENT DRUG THERAPY] Onset: 3 Episodic Other aftercare (6 sources) Long-term current use of insulin; 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 Based off of the other readings, recommend switching his metoprolol to carvedilol, start at 6.25mg BID. Follow-up 2-3 months. THanks [facility] Ambulatory Visit Summaryon 1 10-15-2023 Ambulatory Visit Summary Ambulatory Visit Summary DONG WHITMORE :1950 Visit Date:08/15/2024 Ambulatory Visit Instructions Your Diagnosis Major depressive disorder, 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 BMI 40.0-44.9, adult, Body mass index [BMI] 40.0-44.9, adult Morbid obesity with BMI of 40.0-44.9, adult Nonsmoker Your Care Team Attending Physician - Haider Hickman MD. Primary Care Physician - Haider Hickman MD This Is Your Medications List [facility] Prescription (Handicap Yamilka, 5 years.) acarbose (acarbose 25 mg oral [...] 30 mg Tab) potassium chloride (Potassium Chloride (Trc-Sqsl-Lcb M20) 20 mEq oral tablet, extended release) [...] Follow-Up Appointments Monday 3:30 PM EST With: Kristofer SCHUSTER, Haider Bee Where: [address] [address]- 2024 8:00 AM EDT With: Where: [address] [address]- Monday 9:15 AM EDT With: AIDAN SCHUSTER, Araceli Treadwell Where: [facility] [address], [address] [place] [address]- Medications What How Much When Why Instructions [...] 2 times a day Unchanged Misc Prescription (Eric Prather, 5 years.) See instructions Stage 3a chronic [...] Peripheral edema Handicap Yamilka, 5 years. Unchanged nitroglycerin (nitroglycerin 0.4 mg sublingual Tab) 1 Tablets Sublingual Every 5 minutes as needed for for chest pain Unchanged omega-3 polyunsaturated fatty acids (Fish Oil 1200 mg oral capsule) 1 Capsules By Mouth Every day Unchanged pioglitazone (pioglitazone 30 mg Tab) 1 Tablets By Mouth Every day Unchanged potassium chloride (Potassium Chloride (Nbm-Unvs-Ety M20) 20 mEq oral tablet, extended release) 1 Tablets By Mouth Every day Unchanged pregabalin (Lyrica 75 mg Cap) 1 Capsules By Mouth 2 times a day Unchanged simvastatin (simvastatin 40 mg Tab) 1 Tablets (more content not included)... Normal [facility] Family Medicine Office/Clini c Noteon 08-15-2024 [...] BID, # 60 cap(s), Refills(s) 1, Pharmacy: [facility]/pharmacy #[id number], 169, cm, 08/15/24 10:34:00 EST, [...] interactions b (more content not included)... Normal [facility] Comment on above: Result Comment: Elec tronically Signed By: Kristofer SCHUSTER, Haider Sandhu.cyrus\Date and Time Signed: 08/15/24 11:26 EST Ksenia 08-14-2024 CNOV Office Visit (NPRC21 ) DONG WHITMORE ([id number]) 1950 M Date Time Provider Department 08/14/24 10:00 AM CHIQUI ROBLES NPRC21 During your visit today, we recorded the following information about you: Pulse Respiration Blood pressure Weight 59/minute 16/minute 137/69 117.2 kg Claudia Chilel MD 08/14/2024 10:51 AM Signed THE [facility] [place] August 14, 2024 This is a face [...] Chiqui Robles MD 08/26/2024 4:34 PM Addendum [facility] STAFF PHYSICIAN NOTE OF PERSONAL INVOLVEMENT IN [...] - psychotherapy was utilized during the visit. Absw-pe-eipl time: 32804 (16-37 mins) actual time spend in psychotherapy 18 minutes Type of therapeutic intervention:Supportiv e Target symptoms: Pain coping skills and Acceptance and adapting Progress/Session notes:processing Interactive Complexity: None STAFF PHYSICIAN:: Chiqui Robles MD DATE of SERVICE: 08/14/2024 Referring Provider: CHIQUI ROBLES [[id number]] Allergies As of Date: 08/14/2024 Noted Allergy [...] [E66.813, E66.01, Z68.41] Order(s):PROVIDER ORDERED FOLLOW UP [[id number]] Order #: [id number]: 1 Prescriptions as of 08/26/2024 - pregabalin (LYRICA) 75 mg capsule Take 75 mg by mouth two times a day. - memantine (NAMENDA) (more content not included)... Normal [facility] Office Visiton 08-07-2024 Follow-up visit [id number] Dong Whitmore 1950 M Date Provider Department Center 08/07/2024 [id number] WASHBURN [facility] Jessie [facility] Family History Problem Relation Age of Onset Coronary artery disease Other Diabetes Other Family Status - Relation Status Age at Other Level of Service:04698 [place] OFFICE/OUTPATIENT ESTABLISHED MOD MDM 30 MIN Reason for Visit and Comments: Hypertension [196825] - He brought BP log from home with him today. Readings are usually in the 130-140's systolic. Hyperlipidemia [182] Coronary Artery Disease [187] - Denies chest pain and SOB. Normal [facility] Ambulatory Visit Summaryon 1 Ambulatory Visit Summary [...] 30 mg Tab) potassium chloride (Potassium Chloride (Aec-Ramg-Llq M20) 20 mEq oral tablet, extended release) [...] AM EST With: Haider Hickman MD Where: [address] [address]- Monday 3:30 PM EST With: Haider Hickman MD Where: [address] [address]- 2024 8:00 AM EDT With: Where: [address] [address]- Monday 9:15 AM EDT With: Araceli BERMUDEZ MD Where: [facility] [place] [address], [address] [place] [address]- Someone Will Contact You Regarding These Appointments [facility] External Ambulatory Referral, Neurology, 08/01/24 12:15:00 EDT, Suicidal ideation Unspecified mononeuropathy of right lower limb BMI 40.0-44.9, adult Morbid obesity with body mass index (BMI) of 40.0 or higher Nonsmoker Medications What How Much When Why Instructions New pregabalin (Lyrica 75 mg Cap) 1 Capsules By Mouth 2 times a day Pickup at [facility]/pharmacy #[id number] Changed tizanidine (tiZANidine 4 mg Tab) 4 Milligram By Mouth Every 8 hours Pickup at [facility]/pharmacy #[id number] Changed venlafaxine (venlafaxine 75 mg Tab) 1 Tablets By Mouth 2 times a day Pickup at [facility]/pharmacy #[id number] Unchanged acarbose (acarbose 25 mg [...] 1 Table (more content not included)... Normal [facility] Office/Clini c Noteon 08-01-2024 [...] appt comiing up with a dr at [facility] says he's a psychiatrist he's in pain [...] E&M of Est. Patient High 40-54 Min 49326 [facility] External Ambulatory Referral Prolonged OV 15 min 78865 2. Unspecified mononeuropathy of right lower limb [...] E&M of Est. Patient High 40-54 Min 31412 [facility] External Ambulatory Referral Prolonged OV 15 min 57310 3. BMI 40.0-44.9, adult (Z68.41: Body mass index [BMI] 40.0-44.9, adult) Discussed the importance of lifestyle changes, including dietary modifications and physical activity, to manage BMI. Addressed the potential contributions of morbid obesity to peripheral neuropathic symptoms. Ordered: Body Mass Index (BMI) documented 3008F Current tobacco non-user 1036F Depression Screening Positive 3354F E&M of Est. Patient High 40-54 Min 28723 Fall Risk Screen 2 or more w/injury 1100F [facility] External (more content not included)... Normal [facility] Comment on above: Result Comment: Elec tronically Signed By: Kristofer SCHUSTER, Haider Bee\.br\Date and Time Signed: 08/01/24 12:17 EDT 36on [...] other machine again): L sitting 175/112 Normal [facility] Telephoneon 07-23-2024 Telephone [id number] Dong Whitmore 1950 M Date Provider Department [place] 07/23/2024 Aaliyah8-BRITNEY MURPHY DALTON Sarkar Family History Problem Relation Age of Onset Coronary artery disease Other Diabetes Other Family Status - Relation Status Age at Other Normal [facility] Office Visiton 07-19-2024 Follow-up visit [id number] Dong Whitmore 1950 M Date Provider Department [place] 07/19/2024 Varun8-ELAINE FISHER DALTON Sarkar Family History Problem Relation Age of Onset Coronary artery disease Other Diabetes Other Family Status - Relation Status Age at Other Level of Service:52910 [place] OFFICE/OUTPATIENT ESTABLISHED MOD MDM 30 MIN [facility] Ambulatory Visit Summaryon 1 Ambulatory Visit Summary [...] 30 mg Tab) potassium chloride (Potassium Chloride (Itn-Vsyb-Vfc M20) 20 mEq oral tablet, extended release) [...] Follow-Up Appointments Monday 3:30 PM EST With: Kristofer SCHUSTER, Haider Bee Where: [address] [address]- Monday 10:30 AM EST With: Araceli BERMUDEZ MD Where: [facility] [address], [address] [place] [address] 2024 8:00 AM EDT With: Where: [facility] [address] [address]- Monday 9:15 AM EDT With: Araceli BERMUDEZ MD Where: [facility] [address], [address] [place] [address]- You Need to Schedule the Following Appointments Follow Up with Araceli BERMUDEZ MD, URL When: Where: [address] [facility] [address] [place] [address]- Medications What How Much When Why Instructions Unchanged sodium bicarbonate (sodium bicarbonate 650 mg Tab) 2 Tablets By Mouth 3 times a day Duration: 90 Days Pickup at [facility]/pharmacy #[id number] Unchanged acarbose (acarbose 25 mg oral tablet) [...] if questions or concerns Unchanged Misc Prescription (Eric Prather, 5 years.) Se (more content not included)... Normal [facility] Reminderson 07-17-2024 Reminders Reminders From: Roya Álvarez To: PREM Bermudez; Sent: 07/17/2024 10:05:54 EDT Show up: 05/17/2025 10:05:00 EDT Subject: Renal US Due Date/Time: 05/17/2025 10:05:00 EDT Reminder Message Renal US to be done prior to 1 year appointment. [facility]. Order created today. Normal [facility] Urology Office/Clinic Noteon 07-17-2024 Urology Office/Clinic Note Urology Office/Clinic Note Chief Complaint follow up HPI Staff 73 yo male here for f/up with renal US. Previous dx: kidney stone, complex renal cyst, BPH w/ LUTS, impotence. Taking Sodium Bicarb 650mg tid. Renal US 10/31/23 TB. KUB 11/10/23 [facility] - no stones id'd. S/p cysto, R RPG, R ESWL 01/04/24. Renal US 01/24/24 [facility] - neg limited renal ultrasound. Renal US 07/04/24 [facility] - 1.3 cm cyst involving the [...] with voice recognition artificial intelligence software, specifically [employer], [employer] and or [employer]. Substitutions may have occurred due to the [...] RPG, R ESWL 01/04/24. Renal US 01/24/24 [facility] - neg limited renal ultrasound. Renal US [...] to order one. S/p TURP 11/15/2007. Cysto 03/28/24 ~prostate is wide open status post prostate [...] Contact Information Araceli BERMUDEZ MD, URL [address] [place], [place] [id number]- Additional Instructions: 1 year w/ renal US Patient Education Dietary Guidelines to Help Prevent Kidney Stones I, Roya Álvarez, personally scribed for Dr. Bermudez on 07/17/2024 10:05:06 (more content not included)... Normal [facility] Comment on above: Result Comment: Elec tronically Signed By: Araceli BERMUDEZ MD\.br\Date and Time Signed: 07/17/24 10:09 EDT\.br\Electronically Co-Signed By: Roya Álvarez\.br\Date and Time Co-Signed: 07/17/24 10:05 EDT Office Visiton 06-26-2024 Follow-up visit [id number] Dong Whitmore 1950 M Date Provider Department Center 06/26/2024 MARY GRIFFIN DALTON [facility] Family History Problem Relation Age of Onset Coronary artery disease Other Diabetes Other Family Status - Relation Status Age at Other Level of Service:09334 [place] OFFICE/OUTPATIENT ESTABLISHED MOD MDM 30 MIN Reason for Visit and Comments: Coronary Artery Disease [187] Hypertension [332316] Normal [facility] Ambulatory Visit Summaryon 0 05-31-2024 Ambulatory Visit [...] Hickman MD. This Is Your Medications List [facility] Prescription (Eric Prather, 5 years.) acarbose (acarbose [...] 30 mg Tab) potassium chloride (Potassium Chloride (Nng-Hxgs-Swd M20) 20 mEq oral tablet, extended release) [...] Araceli BERMUDEZ MD Where: [facility] [address], [address] [place] [address]- Monday 3:30 PM EST With: Haider Hickman MD Where: [address] [address]- Monday 10:30 AM EST With: Araceli BERMUDEZ MD Where: [facility] [address] [place] [address]- 2024 8:00 AM EDT With: Where: [facility] [place] [id number]- Medications What How Much When Why Instructions [...] Unchanged nitrog (more content not included)... 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 Normal [facility] Comment on above: Result Comment: Elec [...] Hickman MD This Is Your Medications List [facility] Prescription (Eric Prather, 5 years.) acarbose (acarbose [...] 30 mg Tab) potassium chloride (Potassium Chloride (Gzn-Dbdf-Gfv M20) 20 mEq oral tablet, extended release) [...] With: Kajal Freeman DPM Where: [facility] [place] Monday 9:15 AM EDT With: AIDAN SCHUSTER, Araceli Treadwell Where: [facility] [address], [address] [place] [address]- Monday 3:30 PM EST With: Kristofer SCHUSTER, Haider Bee Where: [address] [address]- Monday 10:30 AM EST With: AIDAN SCHUSTER, Araceli Treadwell Where: [facility] [place] [address], [address] [place] [address] 2024 8:00 AM EDT With: Where: [facility] [address] [address]- Medications What How Much When Why Instructions New clindamycin (clindamycin 300 mg oral cap) 1 Capsules By Mouth 2 times a day Cellulitis of leg BMI 40.0-44.9, adult Non-smoker Class 3 severe obesity due to excess calories with body mass index (BMI) of 40.0 to 44.9 in adult Duration: 10 Days Pickup at [facility]/pharmacy #[id number] Unchanged acarbose (acarbose 25 mg oral tablet) [...] Unchanged nitroglyce (more content not included)... Normal [facility] Medicine Office/Clini c Noteon 05-14-2024 [...] [facility] appt [facility] week. 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 [facility] Comment on above: Result Comment: Elec tronically Signed By: Haider Hickman MD.br\Date and Time Signed: 05/14/24 10:23 EDT\.br\Electronically Co-Signed By: Debra Bermudez.br\Date and Time Co-Signed: 05/13/24 13:04 EDT CNOVon 04-24-2024 CNOV Office Visit (NPRC21 ) BOGNER,DONG ([id number]) 1950 M Date Time Provider Department 04/24/24 9:00 AM CHIQUI ROBLES NPRC21 During your visit today, we recorded the following information about you: Pulse Blood pressure Weight Height 61/minute 122/89 122.5 kg 1.702 m Parish Rios MD 04/24/2024 11:26 AM Signed [facility] [place] April 24, 2024 This is a face [...] Camacho Desimir, MD 04/24/2024 11:26 AM Signed [facility] STAFF PHYSICIAN NOTE OF PERSONAL INVOLVEMENT IN CARE IMPRESSION: Complex regional pain syndrome Adjustment Disorder Tried multiple injections, procedures, surgeries. No benefit Tried SCS and recently DRG without success. Discussed ketamine PLAN: Ketamine infusions Consider scrambler therapy Psych psychology Memantine 5mg Psychotherapy Add-on Progress Note Due to medical condition and comorbid psychological and behavioral concerns - psychotherapy was utilized during the visit. Fxst-aw-pfyk time: 88008 (16-37 mins) actual time spend in psychotherapy [...] which included preparing to see the patient, zfnn-hy-lsij patient care, completing clinical documentation, performing a medically appropriate examination, and counseling and educating the patient/family/caregiv er. As noted, the patient's clinical situation is complex and serious with significant comorbidity of pain and functional limitations. This requires higher levels of time, intensity, and expense with longitudinal care and support. STAFF PHYSICIAN:: Chiqui Robles MD DATE of SERVICE: 04/24/2024 Referring Provider: HERBERTH ARAUJO [[id number]] Allergies As of Date: 04/24/2024 Noted Allergy [...] TO [facility] (CHRONIC PAIN) [2961985] Order #: [id number]: 1 PAIN RECOVERY FOLLOW UP ORDER [[id number]] Order #: [id number]: 1 FUTURE PROVIDER ORDERED FOLLOW UP [[id number]] Order #: [id number]: 1 FUTURE memantine (NAMENDA) 5 mg tabletTake 1 tablet by mouth once daily.Disp: 30 tabletRfl: 3 CONSULT TO KETAMINE FOR CHRONIC PAIN [9044] Order #: [id number]: 1 FUTURE Prescriptions as of 04/24/2024 - memantine (NAMENDA) 5 mg tablet Take 1 tablet by mouth once daily. - aspirin, enteric coated (ASPIRIN, ENTERIC COATED) 81 mg EC tablet Take 81 mg by mouth once daily. - fi (more content not included)... Normal [facility] BRIEF OP NOTon 04-03-2024 BRIEF OP NOT HNO ID: [id number] Author: CAPRICE DOWNING MD Service: Pain Management Author Type: Fellow Type: Brief Op Note Filed: 04/03/2024 10:35 Note Text: BRIEF OPERATIVE / PROCEDURE NOTE LOG ID: [id number] SURGERY/PROCEDURE DATE: 04/03/2024 PROCEDURE START TIME: 0959 PROCEDURE END TIME: 1030 PRE-OP/PRE-PROCEDURE DIAGNOSIS: Chronic toe pain, right foot [M79.674, G89.29] Complex regional pain syndrome type II of right lower limb [G57.71] POST-OP/POST-PROCEDURE DIAGNOSIS: Chronic toe pain, right foot [M79.674, G89.29] Complex regional pain syndrome type II of right lower limb [G57.71] SURGEON(S)/PROCEDURALI ST(S) AND NAUMKEAG OPERATOR(S): Surgeon(s) and Role: * Herberth Araujo MD, PhD - Primary * Caprice Downing MD No Additional Staff SURGERY/PROCEDURE(S): Attempted Right L4 and L5 Dorsal Root Ganglion Stimulator ANESTHESIA: Anxiolysis and Local anesthetic FINDINGS: None ESTIMATED BLOOD LOSS: Minimal SPECIMENS: None COMPLICATIONS: None Caprice Downing MD Pain Medicine Fellow April 03, 2024 Normal [facility] NURSING PROGon 04-03-2024 NURSING PROG HNO ID: [id number] Author: CAYETANO ROSALES RN Service: Nursing Author Type: Registered Nurse Type: Nursing Progress Note Filed: 04/08/2024 15:32 Note Text: Summary: Follow up phone call Follow up phone call made regarding outcome of procedure. No answer voicemail left - The patient was instructed to call [phone] with the percentage of pain relief and what activities have improved. [employer] message also sent. [facility] NURSING PROG HNO ID: [id number] Author: SURINDER LARES RN Service: Nursing Author Type: Registered Nurse Type: Nursing Progress Note Filed: 04/09/2024 10:09 Note Text: Summary: Post Procedure Call Patient left voice mail. Team was unable to finish procedure due to patient was unable to stay still. No pain relief noted. Surinder Lares RN April 09, 2024 [facility] NURSING PROG HNO ID: [id number] Author: EMILEE HYDE RN Service: ? Author Type: Registered Nurse Type: Nursing Progress Note Filed: 04/03/2024 10:45 Note Text: Dr. Marian Downing (fellow) discusses reason why procedure was aborted today. Other options for pain management was discussed with patient and . Normal [facility] OPERATIVE NOon 04-03-2024 OPERATIVE NO HNO ID: [id number] Author: HERBERTH ARAUJO MD, PhD Service: Pain Management Author Type: Physician Type: Operative Report Filed: 04/03/2024 20:14 Note Text: OPERATIVE/PROCEDURE REPORT : LOG ID: [id number] SURGERY/PROCEDURE DATE: 04/03/2024 INCISION/PROCEDURE START TIME: 9:59 [...] Dorsal Root Ganglion Stimulator SURGEON(S)/PROCEDURALI ST(S) AND NAUMKEAG OPERATOR(S): Surgeon(s) and Role: * Herberth Araujo MD, [...] ELECTRONIC SIGNATURE, Herberth Araujo MD, PhD Normal [facility] HISTORY PHYSICALon HISTORY PHYSICAL HNO ID: [id number] Author: HERBERTH ARAUJO MD, PhD Service: Pain Management Author Type: Physician Type: H&P Filed: 04/03/2024 09:33 Note Text: PROCEDURE EVALUATION AND HISTORY AND PHYSICAL EXAM SUBJECTIVE: Dong Whitmore is a 73 year old man who presents to [facility] for Right L4 and L5 Dorsal Root Ganglion Stimulator Trial. This is his first (1) procedure. Focused Review of Systems: PAIN: Denies any contraindications to the procedure including coagulopathy, infection, recent cerebral/myocardial infarct, and hemodynamic instability. 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 Current Outpatient Medications [...] 03, 2024 Herberth Araujo MD, PhD Normal [facility] NURSING PROGon 04-01-2024 NURSING PROG HNO ID: [id number] Author: GILBERTO BAUTISTA, DENISE Service: ? Author [...] 2 hours before the appointment. 2. A feeder driver must be present who can drive you home. If you are coming by medical transport, you must have a responsible person other than the care transport nurse with you. 3. Do you take any [...] or cannot make the appointment by calling [phone] (Option 2). Normal [facility] Ambulatory Visit Summaryon 0 03-26-2024 [...] 40 mg Tab) potassium chloride (Potassium Chloride (Aoh-Sngm-Pgu M20) 20 mEq oral tablet, extended release) [...] Appointments Monday 9:30 AM EDT With: Where: [facility] [place] Invalid Interpretation Code [address], [address] [place] [address]- \.br \ Monday 2:15 PM EST \.br\ With: Kristofer SCHUSTER, Haider Bee\.br\ Where: [facility] [place] [facility] Office/Clini c Noteon 03-26-2024 [facility] Office/Clinic Note HPI Staff Dong is a [...] years., Suppl (more content not included)... Normal [facility] Comment on above: Result Comment: Elec [...] numbers. This can be done either in Azeri ([place] or metric measurements. Note that charts and online BMI calculators are available to help you find your BMI quickly and easily without having to do these calculations yourself. To calculate your BMI in Azeri ([place] measurements: 1. Measure your weight in [...] for Disease Control and Prevention: www.cdc.gov ? [place] Heart Association: www.heart.org ? National Heart, Lung, and Blood [place]: www.nhlbi.nih.gov Summary ? Body mass index (BMI) is a number that is calculated from a person's weight and height. ? BMI may help estimate how much of a person's weight is composed of fat. BMI can help identify those who may be at higher risk for certain medical problems. ? BMI can be measured using Azeri measurements or metric measurements. ? BMI charts are used to identify whether you are underweight, normal weight, overweight, or obese. This information is not intended to replace advice given to you by your health care provider. Make sure you discuss any questions you have with your health care provider. Document Revised: 06/17/2020 Document Reviewed: 04/24/2020 [employer] Patient Education ? 2022 [employer]. [facility] Sona 03-19-2024 HERRERAN Telephone (PAINMN) DONG WHITMORE ([id number]) 1950 M Date Time Provider Department 03/19/24 HERBERTH ARAUJO During your visit today, we recorded the following information about you: Emilee So, RN 03/19/2024 1:32 PM Signed Spoke with patient at request of planner scheduler as patient has questions about referral to infectious disease. Patient states that he spoke with his PCP, Dr. Hickman ([phone]) who spoke with Dr. Vega in Infectious disease at [facility]. Dr. Hickman ordered lab work at the [...] Status:Closed by EMILEE SO on 03/21/24 Normal [facility] BMPon 03-08-2024 Anion gap [Moles/Vol] 14 mmol/L Normal 6-16 [facility] Comment on above: Performed By: #### 2 [id number] #### [facility] [address] [place] [address] Calcium [Mass/Vol] 9.4 mg/dL Normal 8.9-11.1 [facility] Comment on above: Performed By: #### 2 [id number] #### [facility] [address] [place] [address] Chloride [Moles/Vol] 104 mmol/L Normal 101-111 [facility] Comment on above: Performed By: #### 2 230686 #### [facility] [address] [place] [address] CO2 [Moles/Vol] 24 mmol/L Normal 21-31 [facility] Comment on above: Performed By: #### 2 [id number] #### [facility] [address] [place] [address] Creatinine [Mass/Vol] 1.5 mg/dL High 0.5-1.3 [facility] Comment on above: Performed By: #### 2 [id number] #### [facility] [address] [place] [address] Glucose [Mass/Vol] 109 mg/dL Normal 55-199 [facility] Comment on above: Performed By: #### 2 [id number] #### [facility] [address] [place] [address] Potassium [Moles/Vol] 4.2 mmol/L Normal 3.5-5.3 [facility] Comment on above: Performed By: #### 2 [id number] #### [facility] [address] [place] [address] Sodium [Moles/Vol] 138 mmol/L Normal 135-145 [facility] Comment on above: Performed By: #### 2 515072 #### [facility] [address] [place] [address] Urea nitrogen [Mass/Vol] 26 mg/dL High 5-21 [facility] Comment on above: Performed By: #### 2 517058 #### [facility] [address] [place] [address] Urea nitrogen/Creatinine [Mass ratio] 17 No Units Normal 10-20 [facility] Comment on above: Performed By: #### 2 [id number] #### [facility] [address] [place] [address] Consent for Treatmenton 02-08 Consent for Treatment [id number]#1.0 0TIFF Normal [facility] VuuG4azl 03-08-2024 HbA1c (Bld) [Mass fraction] 6.5 % High <=5.9 [facility] Comment on above: Performed By: #### 7 [id number] #### [facility] [address] [place] [address] eGFRon 03-08-2024 eGFR 48 mL/min/1.73 m2 Low >=59 [facility] Comment on above: Order Comment: Order added by Discern Expert. Performed By: #### 1 [id number] #### [facility] [address] [place] [address] Ambulatory Visit Summaryon 0 03-07-2024 Ambulatory Visit [...] EDT With: Kristofer SCHUSTER, Haider Bee Where: [facility] Invalid Interpretation Code [address] [place] [address]- \.br \ Monday 9:15 AM EDT \.br\ With: AIDAN SCHUSTER, Araceli Treadwell\.br\ Where: [facility] Office/Clini c Noteon 03-07-2024 Family Medicine Office/Clinic Note HPI Staff Dong is a 73 year old male presenting for infection right leg referral to infectious disease and possible cultures called with info as she's not sure she'll be with her at this appt He was seen at [facility] and is having drg?? end of March, [...] Ordered: Basic Metabolic Panel Blood Culture [facility] External Ambulatory Referral HgbA1c 2. Stage 3a chronic kidney disease (N18.31: Chronic kidney disease, stage 3a) - Will recheck today. - No concerns Ordered: Basic Metabolic Panel Blood Culture [facility] External Ambulatory Referral HgbA1c 3. Stasis ulcer (I83.009: Varicose veins of unspecified lower extremity with ulcer of unspecified site) - Most likely the cause of number 1. - No ulcer today Ordered: Basic Metabolic Panel Blood Culture Char[facility] External Ambulatory Referral HgbA1c 4. Morbid obesity with body mass index of 40.0-44.9 in adult (E66.01: Morbid (severe) obesity due to excess calories) - Diet and exercise advsied Ordered: Basic Metabolic Panel Blood Culture [facility] Body Mass Index (BMI) documented 3008F Current tobacco non-user 1036F Depression Screening Negative 3352F [facility] External Ambulatory Referral HgbA1c Influenza immunization administered [...] Ordered: Basic Metabolic Panel Blood Culture [facility] External Ambulatory Referral HgbA1c 6. BMI 40.0-44.9, [...] neuropathy Complex (more content not included)... Normal [facility] Comment on above: Result Comment: Elec tronically Signed By: Kristofer SCHUSTER, Haider Sandhu.br\Date and Time Signed: 03/07/24 11:12 EDT Physician Referralon 024 Physician Referral [id number]#1. 00TIFF [facility] CNOVon 02-29-2024 CNOV Office Visit (PAINMN ) DONG WHITMORE ([id number]) 1950 M Date Time Provider Department 02/29/24 1:30 PM HERBERTH ARAUJO PAINMN During your visit today, we recorded the following information about you: Temperature Pulse Blood pressure Weight 97.4 degrees 62/minute 138/73 122.5 kg Height 1.702 m Herberth Araujo MD, PhD 03/18/2024 7:05 PM Signed [facility] Pain Management Department New Patient Consultation Referring Physician: CLAUDINE Chief Complaint: Right third toe pain SUBJECTIVE: Dong Whitmore is a 73 year old male with a pertinent past medical history of diabetes who presents to [facility] Management [facility] for the evaluation of right third toe pain. 15-year history of right third toe pain. He notes that over this time the pain has become increasingly severe has caused him significant discomfort and suffering. He has been to many specialists in the [facility] area-over the course of the past [...] 16th pe (more content not included)... Normal [facility] Rem[facility] 02-09-2024 Reminders - From: Vandana Hilton MA ( - Recalls Aidan) To: [facility] Recalls Aidan; Sent: 02/09/2024 13:50:30 EDT Show up: 06/09/2024 13:50:00 EDT Subject: renal us Reminder/Recall Addendum by Sharla Longoria on January 30, 2024 13:44:48 EDT From: Sharla Longoria (EU - Clinical) To: [facility] Recalljakob Bermudez; Sent: 01/30/2024 13:44:48 EDT Subject: FW: f/u after ESWL -Order for Renal US sent to Due Date/Time: 05/31/2024 13:44:00 EDT Caller Name: DONG WHITMORE; Caller Number: H , B [phone] Addendum by Sharla Longoria on January 30, 2024 13:43:59 EDT Called pt and advised him of below message. Pt voiced understanding. Pt scheduled for 07/17/24 w/ TERRIE. Will send to [facility] recall for TERRIE. Addendum by Araceli BERMUDEZ MD on January 29, 2024 18:12:03 EDT From: Araceli BERMUDEZ MD To: EU - Clinical; Sent: 01/29/2024 18:12:03 EDT Subject: RE: f/u after ESWL -Order for Renal US sent to Caller Name: DONG WHITMORE; Caller Number: H , B [phone] Please let the patient know that the [...] DONG WHITMORE; Caller Number: H , B [phone] Pt s/p R ESWL 01/03, to get [...] From: ASMITA Martines APRN, [place] [facility] (EU Palkion RUPERT/Aidan Messages & Refills) To: EU - Pending Results; Sent: 01/19/2024 12:57:58 EDT Subject: FW: f/u after ESWL -Order for Renal US sent to Due Date/Time: 01/25/2024 12:57:00 EDT Caller Name: DONG WHITMORE; Caller Number: H , B [phone] Addendum by Nan Hodges MA on January 19, 2024 12:33:50 EDT From: Nan Hodges MA (EU - Pending Results) To: EU - RUPERT/Cook Messages & Refills; Sent: 01/19/2024 12:33:50 EDT Subject: RE: f/u after ESWL -Order for Renal US sent to Due Date/Time: 01/25/2024 12:33:00 EDT Caller Name: DONG WHITMORE; Caller Number: H , B [phone] Scheduled 01/24/24 @ [facility] From: Elena Robbins To: EU - Pending Results; Sent: 01/08/2024 09:17:33 EDT Subject: f/u after ESWL -Order for Renal US sent to Due Date/Time: 01/17/2024 09:17:00 EDT Caller Name: DONG WHITMORE; Caller Number: H , B [phone] Pt is PO R ESWL 01/03 - he is to get renal US in 2 weeks and call for results if we don't contact him 1st - order sent to [facility] CNPCynthia 02-06-2024 CNPN Telephone (PAMAVN) DONG WHITMORE ([id number]) 1950 M Date Time Provider Department 02/06/24 FRANCOISE SINGLETARY During your visit today, we recorded the following information about you: Lela Hyatt, RN 02/06/2024 10:46 AM Signed ----- Message from Francoise Singletary MD sent at 02/05/2024 3:12 PM EDT ----- Do you mind calling him and giving him the number to schedule at [facility] to discuss DRG? I'd suggest seeking an appointment with the following doctors who perform DRG implantation: Dr. Carlisle, Dr. Araujo, Dr. Dan, Dr. Moo Heard and Dr. Kamara may do DRG - I'm not sure. Thanks Lela! ----- Message ----- From: Livia Lester PA-C Sent: 02/05/2024 2:07 PM EDT To: Francoise Singletary MD No one on this side of [facility] that I know of does DRG so, we also send to [facility] I would just have Lela call the patient and tell him this is not something you do and tell him he needs to be seen a Main ----- Message ----- From: Francoise Singletary MD Sent: 02/05/2024 1:45 PM EDT To: Livia Lester PA-C Nm! He was supposed to get referred for consideration of DRG - the only people I know who do DRG are at [facility]. How do we refer [...] Encounter Status:Closed by LELA HYATT on 02/06/24 [facility] Ksenia 02-05-2024 CNOV Office Visit (DENICE ) DONG WHITMORE ([id number]) 1950 M Date Time Provider Department 02/05/24 11:30 AM FRANCOISE SINGLETARY During your visit today, we recorded the following information about you: Pulse Blood pressure Weight 80/minute 131/70 124.7 kg Francoise Singletary MD 02/05/2024 3:14 PM Signed [facility] Pain Management Department Consultation Date: [...] The patient has seen other pain providers. [facility] Neurology OV 02/01/22 Assessment and Plan 71 [...] year old (more content not included)... Normal [facility] Renalon 01-26-2024 US Renal Exam [...] Rosenbaum MD Transcribed by: GREGORIO Technologist: HW [facility] Consent for Treatmenton 01-07 Consent for Treatment [id number]#1.0 0TIFF [facility] Consultation Noteon 01-22-20 24 Consultation Note [id number]#1.0 0TIFF [facility] Consultation Note [id number]#1.0 0TIFF [facility] IntraOperative Documentson 0 01-08-2024 IntraOperative Documents [id number]#1.0 0TIFF [facility] Postoperative Documentson Postoperative Documents [id number]#1. 00TIFF [facility] Consent for Anesthesiaon Consent for Anesthesia [id number]#1. 00TIFF [facility] Discharge Instructionson Discharge Instructions [id number]#1. 00TIFF Normal [facility] IntraOperative Documentson 0 01-05-2024 IntraOperative Documents [id number]#1. 00TIFF Normal [facility] IntraOperative Documents [id number]#1. 00TIFF Normal [facility] Main [place] Intraoperative Recor don 01-05-2024 Main [place] Intraoperative Record IntraOp Document Type FT Summary Primary Physician: Araceli BERMUDEZ MD Finalized Date/Time: 01/05/24 12:41:56 Pt. Name: CHRISETHELDONG/Sex: 1950 Male Med Rec #: [id number] Physician: Araceli BERMUDEZ MD Financial #: [id number] Pt. Type: A Room/Bed: [place] [address] Admit/Disch: 01/04/24 06:41:12 - 01/04/24 12:00:26 Institution: [...] Loja Role Performed Anesthesiologist Surgeon - Primary Environmental Services Supervisor - Primary Manager Multicultural Time In 01/04/24 09:07:00 01/04/24 09:07:00 01/04/24 [...] 01/04/24 09:55:45 General Comments: FINN BRAUN - [facility] STUDENT WORKING WITH DR. BERMUDEZ. SCRUBBED [...] and tissue Entry 1 Skin Integrity Intact, [place], Warm, and Skin (more content not included)... Normal [facility] Preoperative Documentson Preoperative Documents [id number]#1. 00TIFF Normal [facility] Progress Note-Physicianon Progress Note-Physician Patient: DONG [...] meets criteria ( To home ). Normal [facility] Comment on above: Result Comment: Elec [...] Problems Vitamin D deficiency / SNOMED CT 84089914 / Confirmed Urgency of urination / SNOMED CT 953863643 / Confirmed Type 2 diabetes mellitus with hyperglycemia, without long-term current use of insulin / ICD-10-CM E11.65 / Confirmed Type 2 diabetes mellitus with peripheral vascular disease / SNOMED CT 196483306 / Confirmed linked DM with PVD per OP CDI policy. Type 2 diabetes mellitus with stage 3a chronic kidney disease and hypertension / SNOMED CT 669067535 / Confirmed linked DM with CKD and HTN per OP CDI policy. 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 Shoulder pain / SNOMED CT 97600572 / Confirmed Renal mass / SNOMED CT 642940776 / Confirmed Psoriasis / SNOMED CT 18581281 / Confirmed PVD (peripheral vascular disease) / SNOMED CT 7752936416 / Confirmed OA (osteoarthritis) / SNOMED CT 6085215075 / Confirmed ULISES (obstructive sleep apnea) / SNOMED CT 982473564 / Confirmed SANTANA (nonalcoholic steatohepatitis) / SNOMED CT 3700395097 / Confirmed Lumbar spondylosis / SNOMED CT 907239266 / Confirmed noted in 10/16/2023 Pain Management Consult Note page 3. added per OP CDI policy. Impotence / SNOMED CT 2391312689 / Confirmed History of kidney stones / SNOMED CT 1029443871 / Confirmed Hiatal hernia / SNOMED CT 891568608 / Confirmed GERD (gastroesophageal reflux disease) / SNOMED CT 222335136 / Confirmed Nerves / SNOMED CT 5762002346 / Confirmed Primary hypertension / SNOMED CT 90537443 / Confirmed Anticoagulated / SNOMED CT 625449336 / Confirmed Complex renal cyst / SNOMED CT 9733787772 / Confirmed Chronic painful diabetic neuropathy / SNOMED CT 1197639854 / Confirmed noted in 10/16/2023 Pain Management Consult Note page 3. added per OP CDI policy. Pain, foot, right, chronic / SNOMED CT 6468726984 / Confirmed noted in 10/16/2023 Pain Management Consult Note page 3. added per OP CDI policy. Chronic bilateral low back pain without sciatica / SNOMED CT 109605636 / Confirmed Stage 3a chronic kidney disease / SNOMED CT 5134491967 / Confirmed Excessive dietary caloric intake / SNOMED CT [id number] / Confirmed Morbid obesity with body mass index of 40.0-44.9 in adult / SNOMED CT 5915208486 / Confirmed BPH with obstruction/lower urinary tract symptoms / SNOMED CT 8429228512 / Confirmed Anxiety / SNOMED CT 84499029 / Confirmed Allergic rhinitis / SNOMED CT 435567229 / Confirmed Acquired absence of right great toe / SNOMED CT 647779693 / Confirmed added per 07/24/2023 query response. Resolved: Neuropathy / SNOMED CT 2270975433 idiopathic chronic Resolved: Hyperlipidemia / SNOMED CT 58756869 Resolved: Depressed mood / SNOMED CT 008407701 Resolved: Amputation of toe of right foot / ICD-10-CM S98.131A Resolved: BPH - benign prostatic hyperplasia / SNOMED CT 4151895195 Resolved: Anxiety disorder / SNOMED CT 096874241 Canceled: Microscopic hematuria / SNOMED CT 441093537 Canceled: Kidney stone / IMO 75237 Canceled: Hypertension / SNOMED CT 2750961750 Canceled: HLD (hyperlipidemia) / SNOMED CT 13633150 Canceled: Glycosuria / SNOMED CT 59743404 Canceled: Diabetes / SNOMED CT 652669868 Histories Procedure history: TOE AMPUTATION on 11/16/2018 at 68 Years. Cysto, Lt retrogrades, Lt stent, Ureteral cath, Lt ESWL ([id number]) on 06/07/2018 at 67 Years. Comments: 06/21/2019 14:34 EDT - Marilynn Zhang MA Cysto, Lt retr (more content not included)... Normal [facility] Comment on above: Result Comment: Elec tronically Signed By: Arlen Mancia Jr, DO\.cyrus\Date and Time Signed: 01/05/24 09:04 EDT XR [...] mGy = na DAP = na Normal [facility] Capillary Glucose POCon 12-08 Glucose [Mass/Vol] 133 mg/dL High 55-99 [facility] Comment on above: Performed By: #### 2 [id number] #### [facility] [address] [place] [address] Consent for Procedure/Surger yon 01-04-2024 Consent for Procedure/Surgery [id number]#1. 00TIFF [facility] Consent for Treatmenton 12-08 Consent for Treatment [id number]#1.0 0TIFF [facility] Discharge Instructionson Discharge Instructions DONG WHITMORE [...] Araceli BERMUDEZ MD Where: [facility] Invalid Interpretation Code [address] [id number]- \.br \ Monday 9:30 AM EDT \.br\ With:\.br\ Where: [facility] Comment on above: Result Comment: Elec tronically Signed By: Ector WALKER, Rakel Nur\.br\Date and Time Signed: 01/04/24 10:37 EDT H&P Updateon 01-04-2024 H&P Update [id number]#1. 00TIFF Normal [facility] Inpatient Patient Summaryon 01-04-2024 Inpatient Patient Summary [address] [facility] Clinical Discharge Instructions PERSON INFORMATION Name: DONG WHITMORE [facility]#:[id number] PHYSICIANS Admitting Physician: Araceli BERMUDEZ MD Attending Physician: Araceli BERMUDEZ MD PCP: Haider Hickman MD Discharge Diagnosis: Comment: PATIENT EDUCATION INFORMATION Instructions: Lithotripsy, Care After Medication Leaflets: Follow up: With: Address: When: Araceli BERMUDEZ [address] [place] [address], [address], [address] [address] Business (1) Comments: Please call [...] for follow-up With: Address: When: [place] [address] [facility] [address] Business (1) Type Location Start Finish State URO Office Visit [facility] 03/13/2024 9:45 AM 03/13/2024 10:00 AM Confirmed FM Open [facility] 03/26/2024 2:15 PM 03/26/2024 2:30 PM Confirmed FM Medicare Wellness Subsequent [facility] FM Jessie 05/13/2024 9:30 AM 05/13/2024 10:30 AM Confirmed URO Office Visit [facility] EU Panfilo 11/06/2024 10:30 AM 11/06/2024 10:45 AM Confirmed MEDICATION LIST New Medications [id number], [address], [place] [id number], [phone] acetaminophen-hydrocod one (acetaminophen-hydroco done 325 mg-5 mg [...] By Mouth every day. Comment: Normal [facility] Main OR PACU I Recordon 12-08 Main OR PACU I Record PACU Phase I Document Type FT Summary Primary Physician: Araceli BERMUDEZ MD Finalized Date/Time: 01/04/24 10:17:21 Pt. Name: DONG WHITMORE /Sex: 1950 Male Med Rec #: [id number] Physician: Araceli BERMUDEZ MD Financial #: [id number] Pt. Type: A Room/Bed: [facility] Admit/Disch: 01/04/24 06:41:12 - Institution: Case Times [...] Signed By: Sangita Ross RN 01/04/24 10:17 [facility] Main OR PACU II Recordon Main OR PACU II Record PACU Phase II Document Type FT Summary Primary Physician: Araceli BERMUDEZ MD Finalized Date/Time: 01/04/24 12:01:26 Pt. Name: DONG WHITMORE/Sex: 1950 Male Med Rec #: [id number] Physician: Araceli BERMUDEZ MD Financial #: [id number] Pt. Type: A Room/Bed: [place] [address] Admit/Disch: 01/04/24 06:41:12 - 01/04/24 12:00:26 Institution: [...] Signed By: Rakel Barney RN 01/04/24 12:01 [facility] Main OR Preoperative Recordo n 01-04-2024 Main OR Preoperative Record PreOp Document Type FT Summary Primary Physician: Araceli BERMUDEZ MD Finalized Date/Time: 01/04/24 09:57:43 Pt. Name: HAIM DONG Boom Ann/Sex: 1950 Male Med Rec #: [id number] Physician: Araceli BERMUDEZ MD Financial #: [id number] Pt. Type: A Room/Bed: [facility]/ Admit/Disch: 01/04/24 06:41:12 - Institution: Case Times [...] Signed By: Sim Ling 01/04/24 09:57 Normal [facility] Monitor Recordon 01-04-2024 Monitor Record [id number]#1. 00TIFF Normal [facility] Operative Reporton Operative Report Patient: DONG [...] placed per urethra and a well-lubricated 22 Arabic is urethroscope with 30 degree lens then [...] pyelogram was then performed utilizing a 6 Arabic open-ended ureteral catheter. The ureter is normal [...] keep the stone in view. Utilizing the [place] Lithostar lithotripter, 1500 shocks were given up to 3.2 power level per protocol. Difficult to tell whether there was good stone fragmentation or not secondary to the patient's body habitus and the fact that this may be a uric acid calculus. He tolerates it well. Upon completion of the procedure the ureteral catheter was removed and he was transferred to the rport reading and then back to PACU in satisfactory condition, stable vital signs. Plan to be for discharge home with plans for a follow-up kidney ultrasound within the next couple weeks. Prescription sent to pharmacy for doxycycline for antibiotic prophylaxis as well as 7 pills of [place] 5/325. She was in agreement with the plan. . Estimated Blood Loss: 0 ml. Complications: None. Anesthesia type: General. Normal [facility] Comment on above: Result Comment: Elec tronically Signed By: Araceli BERMUDEZ MD\.br\Date and Time Signed: 01/04/24 10:09 EDT Outpatient Surgery Discharge Instructionon 01-04-2024 Outpatient Surgery Discharge Instruction [place] [id number] Patient Discharge Instructions PERSON INFORMATION Name: DONG [...] Follow up: With: Address: When: Araceli BERMUDEZ [facility] [address] [place], [address], [address] [address] Business (1) Comments: Please call my office [...] for follow-up With: Address: When: [place] [address] [facility] [address] Business (1) Type Location Start Finish State URO Office Visit [facility] PREM Panfilo 03/13/2024 9:45 AM 03/13/2024 10:00 AM Confirmed FM Open [facility] Jessie 03/26/2024 2:15 PM 03/26/2024 2:30 PM Confirmed FM Medicare Wellness Subsequent [facility] FM [place] 05/13/2024 9:30 AM 05/13/2024 10:30 AM Confirmed URO Office Visit [facility] Panfilo 11/06/2024 10:30 AM 11/06/2024 [...] to serve you. Thank you for choosing [facility] HERE ARE THE MEDICATION CHANGES THAT OCCURRED DURING YOUR HOSPITAL STAY New Medications [id number], [address], [place] [id number], [phone] acetaminophen-hydrocod one (acetaminophen-hydroco done 325 mg-5 mg [...] care p (more content not included)... Normal [facility] PT - Progress Noteson 2023 PT - Progress Notes [id number] 30 [id number]#1.0 0TIFF Normal [facility] Patient Education - Texton 0 01-04-2024 [...] these instructions at home: Medicines ? Take emqp-foa-vvhwgnm and prescription medicines only as told by [...] forming. ? (more content not included)... Normal [facility] Physician Referralon 024 Physician Referral [id number] 01 [id number]#1. 00TIFF Normal [facility] Physician Referral [id number]#1. 00TIFF Normal [facility] BMPon 12-29-2023 Anion gap [Moles/Vol] 13 mmol/L Normal 6-16 [facility] Comment on above: Performed By: #### 2 903935, 0776765, 68129443, 79505745 #### [facility] [address] [place] [address] Calcium [Mass/Vol] 9.1 mg/dL Normal 8.9-11.1 [facility] Comment on above: Performed By: #### 2 009825, 5925081, 73523289, 89962162 #### [facility] [address] [place] [address] Chloride [Moles/Vol] 106 mmol/L Normal 101-111 [facility] Comment on above: Performed By: #### 2 034715, 1858201, 14299375, 53086327 #### [facility] [address] [place] [address] CO2 [Moles/Vol] 25 mmol/L Normal 21-31 [facility] Comment on above: Performed By: #### 2 312439, 5836592, 96166027, 65912877 #### [facility] [address] [place] [address] Creatinine [Mass/Vol] 1.2 mg/dL Normal 0.5-1.3 [facility] Comment on above: Performed By: #### 2 358825, 9660670, 57599437, 24485356 #### [facility] [address] [place] [address] Glucose [Mass/Vol] 145 mg/dL Normal 55-199 [facility] Comment on above: Performed By: #### 2 710239, 2789374, 19800909, 99157597 #### [facility] [address] [place] [address] Potassium [Moles/Vol] 3.8 mmol/L Normal 3.5-5.3 [facility] Comment on above: Performed By: #### 2 850894, 2015113, 95700400, 71955179 #### [facility] [address] [place] [address] Sodium [Moles/Vol] 140 mmol/L Normal 135-145 [facility] Comment on above: Performed By: #### 2 502044, 2429848, 75707952, 77722866 #### [facility] [address] [place] [address] Urea nitrogen [Mass/Vol] 25 mg/dL High 5-21 [facility] Comment on above: Performed By: #### 2 440159, 1830213, 98934306, 31081875 #### [facility] [address] [place] [address] Urea nitrogen/Creatinine [Mass ratio] 21 No Units High 10-20 [facility] Comment on above: Performed By: #### 2 817403, 0108833, 83829844, 76510801 #### [facility] [address] [place] [address] CBC w/ Auto Diffon 4 Basophils/100 WBC (Bld) 0.5 % Normal 0.0-2.0 [facility] Comment on above: Performed By: #### 2 347476, 6301255, 32858262, 37694858 #### [facility] [address] [place] [address] Basophils/Leukocytes Auto (Bld) [Pure # fraction] 0.0 E9/L Normal 0.0-0.2 [facility] Comment on above: Performed By: #### 2 518519, 7890451, 64157342, 96431167 #### [facility] [address] [place] [address] Eosinophils (Bld) [#/Vol] 0.3 E9/L Normal 0.0-0.5 [facility] Comment on above: Performed By: #### 2 421590, 0522583, 49558012, 85432935 #### [facility] [address] [place] [address] Eosinophils/100 WBC (Bld) 5.7 % Normal 0.0-8.0 [facility] Comment on above: Performed By: #### 2 875113, 0875748, 06040072, 45644448 #### [facility] [address] [place] [address] Erythrocyte distribution width (RBC) [Ratio] 14.6 % High 10.9-14.2 [facility] Comment on above: Performed By: #### 2 612926, 1736418, 84914775, 60147102 #### [facility] [address] [place] [address] Hematocrit (Bld) [Volume fraction] 38.3 % Normal 37.7-49.0 [facility] Comment on above: Performed By: #### 2 331114, 0794079, 16694052, 87368335 #### [facility] [address] [place] [address] Hemoglobin (Bld) [Mass/Vol] 12.8 g/dL Low 13.5-17.5 [facility] Comment on above: Performed By: #### 2 443487, 0622624, 91407323, 69340939 #### [facility] [address] [place] [address] Lymphocytes (Bld) [#/Vol] 0.9 E9/L Low 1.0-4.0 [facility] Comment on above: Performed By: #### 2 812365, 8059747, 82229833, 07183417 #### [facility] [address] [place] [address] Lymphocytes/100 WBC (Bld) 17.1 % Normal 14.0-50.0 [facility] Comment on above: Performed By: #### 2 696839, 6758077, 71481984, 45773822 #### [facility] [address] [place] [address] MCH (RBC) [Entitic mass] 28.1 pg Normal 27.0-34.0 [facility] Comment on above: Performed By: #### 2 610759, 9677521, 31541864, 20083221 #### [facility] [address] [place] [address] MCHC (RBC) [Mass/Vol] 33.4 g/dL Normal 31.4-36.0 [facility] Comment on above: Performed By: #### 2 291708, 2168742, 78777383, 32458655 #### [facility] [address] [place] [address] MCV (RBC) [Entitic vol] 84.1 fL Normal 80.0-100.0 [facility] Comment on above: Performed By: #### 2 668934, 0482317, 64738599, 49650597 #### [facility] [address] [place] [address] Monocytes (Bld) [#/Vol] 0.4 E9/L Normal 0.2-1.0 [facility] Comment on above: Performed By: #### 2 326582, 2459248, 11008843, 95793761 #### [facility] [address] [place] [address] Neutrophils (Bld) [#/Vol] 3.9 E9/L Normal 2.0-7.5 [facility] Comment on above: Performed By: #### 2 617903, 6759474, 93647602, 05693335 #### [facility] [address] [place] [address] Neutrophils/100 WBC (Bld) 69.6 % Normal 36.0-75.0 [facility] Comment on above: Performed By: #### 2 838310, 1561518, 91903748, 72087115 #### [facility] [address] [place] [address] Platelet 178.0 E9/L Normal 150.0-500.0 [facility] Comment on above: Performed By: #### 2 066827, 9631842, 42723265, 08399590 #### [facility] [address] [place] [address] Platelet mean volume (Bld) [Entitic vol] 8.4 fL Normal 6.4-10.8 [facility] Comment on above: Performed By: #### 2 967189, 3296713, 57979338, 21181637 #### [facility] [address] [place] [address] RBC (Bld) [#/Vol] 4.6 E12/L Normal 4.3-5.9 [facility] Comment on above: Performed By: #### 2 444537, 2773952, 24547097, 27003102 #### [facility] [address] [place] [address] WBC corrected for nucl RBC Auto (Bld) [#/Vol] 5.5 E9/L Normal 4.0-11.0 [facility] Comment on above: Performed By: #### 2 145526, 2001045, 23666426, 64748071 #### [facility] [address] [place] [address] Consent for Treatmenton 12-08 Consent for Treatment [id number] 0TIFF Normal [facility] PT & PTTon 12-29-2023 aPTT Coag (PPP) [Time] 35.7 second(s) Normal 25.1-36.5 [facility] Comment on above: Result Comment: Para [...] the same coagulation reagent and instrumentation as [facility]. Currently there are no coagulation studies available worldwide for children to 14 days, and no normal ranges. Heparin therapeutic range (represented by Anti-Factor Xa activity of 0.2 - 0.4 U/mL) corresponds to PTT of 56.6 - 109.0 sec. Performed By: #### 2 931980, 7698622, 81225287, 87634745 #### [facility] [address] [place] [address] INR Coag (PPP) [Relative time] 1.23 {INR} Invalid Interpretation Code [facility] Comment on above: Result Comment: INR results are specifically intended to assess patients stabilized on long-term Anticoagulation therapy suggested INR?s ?Less Intensive Anticoagulation? 2.0 ? 3.0 Conventional Range 3.0 ? 4.5 Performed By: #### 2 394867, 2888061, 13450130, 27801088 #### [facility] [address] [place] [address] PT Coag (PPP) [Time] 13.8 second(s) High 9.4-12.5 [facility] Comment on above: Result Comment: 15 [...] the same coagulation reagent and instrumentation as [facility]. Currently there are no coagulation studies available worldwide for children to 14 days, and no normal ranges. Performed By: #### 2 059918, 1721544, 71539749, 59311126 #### [facility] [address] [place] [address] UA with Cult Rflxon 12-29-19 24 Color (U) Light-Yellow Normal Yellow [facility] Comment on above: Result Comment: Micr oscopic readings are only performed on those samples that meet specific criteria set forth by [facility]. Performed By: #### 4 817322454 ####[facility] [address] [place] [address] Glucose (U) [Mass/Vol] Negative Normal Negative [facility] Comment on above: Performed By: #### 4 000201092 ####[facility] [address] [place] [address] Ketones Ql (U) Negative Normal Negative [facility] Comment on above: Performed By: #### 4 668371866 ####[facility] [address] [place] [address] UA Blood Negative Normal Negative [facility] Comment on above: Performed By: #### 4 124157381 ####[facility] [address] [place] [address] UA Clarity Clear Normal Clear [facility] Comment on above: Performed By: #### 4 477475588 ####[facility] [address] [place] [address] UA Leuk Est Negative Normal Negative [facility] Comment on above: Performed By: #### 4 291659087 ####[facility] [address] [place] [address], [place] [address] UA Nitrite Negative Normal Negative [facility] Comment on above: Performed By: #### 4 140847975 ####[facility] [address] [place] [address] UA pH 6.5 Invalid Interpretation Code 5.0-9.0 [facility] Comment on above: Performed By: #### 4 105610514 ####[facility] [address] [place] [address] UA Protein Trace Abnormal Negative [facility] Comment on above: Performed By: #### 4 133410699 ####[facility] [address] [place] [address] UA Spec Grav 1.021 Invalid Interpretation Code 1.005-1.030 [facility] Comment on above: Performed By: #### 4 447324495 ####[facility] [address] [place] [place] [address] UA Urobilinogen Negative Normal Negative [facility] Comment on above: Performed By: #### 4 733516927 ####[facility] [address] [place] [address] Urobilinogen (U) [Mass/Vol] Negative Normal Negative [facility] Comment on above: Performed By: #### 4 468983552 ####[facility] [address] [place] [address] UA Spec Desc Clean Catch Normal [facility] Comment on above: Performed By: #### 4 851439802 ####[facility] [address] [place] [address] XR Chest 2 Viewson XR Chest 2 Views Exam Date/Time: 12/29/2023 09:35 EDT Reason for Exam: P.A.T. Report [facility] [phone] IMPRESSION: No acute infiltrates or effusions, no [...] mGy = na DAP = na Normal [facility] eGFRon 12-29-2023 eGFR 63 mL/min/1.73 m2 Normal >=59 [facility] Comment on above: Order Comment: Order added by Discern Expert. Performed By: #### 2 120994, 1261461, 80445381, 45153894 #### [facility] [address] [address] Family Medicine Office/Clini c Noteon 12-28-2023 Family [...] (12/05/2016), ysto, (more content not included)... Normal [facility] Comment on above: Result Comment: Elec tronically Signed By: Haider Hickman MD\.br\Date and Time Signed: 12/28/23 09:51 EDT Physician Orderon 12-28-2023 Physician Order [id number]#1.0 0TIFF Normal [facility] Ambulatory Visit Summaryon 0 12-26-2023 Ambulatory [...] SCHUSTER, Araceli Treadwell Where: [facility] Invalid Interpretation Code [address] [place] [address]- \.br \ Monday 9:30 AM EDT \.br\ With:\.br\ Where: [facility] CMPon 12-26-2023 Albumin [Mass/Vol] 4.2 g/dL Normal 3.3-5.0 [facility] Comment on above: Performed By: #### 2 644825, 2113916, 23617423, 1077445 ####[facility] [place] [address] Albumin/Globulin (S) [Mass conc ratio] 1.6 Normal 1.1-2.2 [facility] Comment on above: Performed By: #### 2 401625, 5996663, 16926553, 5664368 ####[facility] [address] [place] [address] ALP [Catalytic activity/Vol] 67 Int._Unit/L Normal 21-98 [facility] Comment on above: Performed By: #### 2 967372, 4443913, 55873166, 2962427 ####[facility] [address] [place] [address] ALT No additional P-5'-P [Catalytic activity/Vol] 20 Int._Unit/L Normal 6-46 [facility] Comment on above: Performed By: #### 2 386611, 2057103, 48758144, 5630089 ####[facility] [address] [place] [address] Anion gap [Moles/Vol] 10 mmol/L Normal 6-16 [facility] Comment on above: Performed By: #### 2 440035, 8086472, 66239735, 2258870 ####[facility] [address] [place] [address] AST [Catalytic activity/Vol] 21 Int._Unit/L Normal 5-43 [facility] Comment on above: Performed By: #### 2 811550, 3886942, 81925028, 2292123 ####[facility] [address] [place] [address] Bilirubin [Mass/Vol] 0.6 mg/dL Normal 0.0-1.1 [facility] Comment on above: Performed By: #### 2 050802, 1315277, 34025981, 4264752 ####[facility] [address] [place] [address] Calcium [Mass/Vol] 9.3 mg/dL Normal 8.9-11.1 [facility] Comment on above: Performed By: #### 2 060498, 2825514, 81314037, 8288198 ####[facility] [address] [place] [address] Chloride [Moles/Vol] 105 mmol/L Normal 101-111 [facility] Comment on above: Performed By: #### 2 690143, 6886850, 61897249, 7453018 ####[facility] [address] [place] [address] CO2 [Moles/Vol] 27 mmol/L Normal 21-31 [facility] Comment on above: Performed By: #### 2 188552, 0804553, 11158900, 3281232 ####[facility] [address] [place] [address] Creatinine [Mass/Vol] 1.3 mg/dL Normal 0.5-1.3 [facility] Comment on above: Performed By: #### 2 582808, 8890865, 47994924, 3199452 ####[facility] [address] [place] [address] Globulin (S) [Mass/Vol] 2.6 g/dL Normal 1.4-4.0 [facility] Comment on above: Performed By: #### 2 689008, 7319795, 64614814, 6035509 ####[facility] [address] [place] [address] Glucose [Mass/Vol] 135 mg/dL Normal 55-199 [facility] Comment on above: Performed By: #### 2 346499, 4698373, 40742076, 7547218 ####[facility] [address] [place] [address] Potassium [Moles/Vol] 4.1 mmol/L Normal 3.5-5.3 [facility] Comment on above: Performed By: #### 2 364491, 6009427, 48540493, 7383470 ####[facility] [address] [place] [address] Protein [Mass/Vol] 6.8 g/dL Normal 6.0-7.8 [facility] Comment on above: Performed By: #### 2 548220, 1225548, 37683533, 7953569 ####[facility] [address] [place] [address] Sodium [Moles/Vol] 138 mmol/L Normal 135-145 [facility] Comment on above: Performed By: #### 2 800675, 7899606, 97534936, 0446335 ####[facility] [address] [place] [address] Urea nitrogen [Mass/Vol] 27 mg/dL High 5-21 [facility] Comment on above: Performed By: #### 2 933611, 0732839, 84691404, 4133025 ####[facility] [address] [place] [address] Urea nitrogen/Creatinine [Mass ratio] 21 No Units High 10-20 [facility] Comment on above: Performed By: #### 2 595262, 5425948, 71215895, 7470174 ####[facility] [address] [place] [address] Lipid Panelon 12-26-2023 Cholesterol [Mass/Vol] 118 mg/dL Low 120-200 [facility] Comment on above: Performed By: #### 2 [id number], [id number], [id number], [id number] ####[facility] [address] [place] [address] Cholesterol in HDL [Mass/Vol] 33 mg/dL Invalid Interpretation Code [facility] Comment on above: Result Comment: '>= 60 LOW RISK' '<= 40 HIGH RISK' Performed By: #### 2 729524, 7826059, [id number], [id number] ####[facility] [address] [place] [address] Cholesterol in LDL [Mass/Vol] 57 mg/dL Normal <=129 [facility] Comment on above: Performed By: #### 2 408401, 5164520, [id number], [id number] ####[facility] [address] [place] [address] Cholesterol in VLDL [Mass/Vol] 45 mg/dL High 7-40 [facility] Comment on above: Performed By: #### 2 067510, 1606648, 26704146, [id number] ####[facility] [address] [place] [place] [address] Triglyceride [Mass/Vol] 225 mg/dL High <=149 [facility] Comment on above: Performed By: #### 2 214647, 4798760, 75067925, 1249705 ####[facility] [address] [place] [address] U Microalbon 12-26-2023 Albumin DL <= 20 mg/L (U) [Mass/Vol] 5.8 mg/dL High 0.0-1.9 [facility] Comment on above: Performed By: #### 1 [id number], [id number] ####[facility] [address] [place] [address] U Protein/Creat Ratioon 12-07 Protein/Creatinine (U) [Ratio] 20.90 mg/gm Cr Normal .00-200.00 [facility] Comment on above: Performed By: #### 1 [id number], [id number] ####[facility] [address] [place] [address] U Creatinine 99.4 mg/dL Invalid Interpretation Code [facility] Comment on above: Performed By: #### 1 [id number], [id number] ####[facility] [address] [place] [address] Ur Total Protein 20.8 mg/dL Invalid Interpretation Code [facility] Comment on above: Performed By: #### 1 [id number], [id number] ####[facility] [address] [place] [address] Vit B12on 12-26-2023 Cobalamin (Vitamin B12) [Mass/Vol] 348 pg/mL Normal 50-1500 [facility] Comment on above: Performed By: #### 2 598587, 5569968, 37047141, 2610996 ####[facility] [address] [place] [address] eGFRon 12-26-2023 eGFR 57 mL/min/1.73 m2 Low >=59 [facility] Comment on above: Order Comment: Order added by Discern Expert. Performed By: #### 2 469580, 1082559, 72874744, [id number] ####[facility] [address] [place] [address] Pre-Visit Planningon 024 Pre-Visit Planning - From: Ceci Yu To: Kristofer SCHUSTER, Haider Bee; Sent: 12/20/2023 09:56:36 EDT Subject: Pre-Visit Planning Due Date/Time: 12/20/2023 09:56:00 EDT Caller Name: DOGN WHITMORE; Caller Number: H , B [phone] Hi Dr. Hickman. During a pre-visit planning [...] feel free to contact me at extension [phone]. Thank you! 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 Normal [address] [place] [address] Consultation Noteon 12-08-19 24 Consultation Note [id number]#1.0 0TIFF Normal [facility] RAD - MISCon 11-14-2023 RAD - MISC [id number] 20 [id number]#1.0 0TIFF Normal [facility] RAD - Ultrasound Reporton RAD - Ultrasound Report [id number]#1.0 0TIFF Normal [facility] RAD - Ultrasound Report [id number]#1.0 0TIFF Normal [facility] RAD - MISCon 10-30-2023 RAD - MISC [id number] 06 [id number]#1.00 TIFF Normal [facility] RAD - MRI Reporton RAD - MRI Report [id number]#1.00 TIFF Normal [facility] Screenson 10-20-2023 Screens [id number]#1. 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 8 oz (237 mL) of milk, zbufztv-imbbcayebiuy-d airy milk, and calcium-fortifiedfruit juice. Calcium-fortified means [...] Spinach (cooked), rhubarb, beets, sweet potatoes, and [place] Islander chard. ? Peanuts. ? Potato chips, somali fries, and baked potatoes with skin on. ? Nuts and nut products. ? Chocolate. ? If you regularly take a diuretic medicine, make sure to eat at least 1 or 2 servings of fruits or vegetables that are high in potassium each day. These include: ? Avocado. ? Banana. ? [place], prune, carrot, or tomato juice. ? Baked [...] fish oil, or vitamin B6. ? Take sehg-dqf-wnwjbdi and prescription medicines only as told by your health care provider. These include supplements. What foods sh (more content not included)... Normal [facility] Reminderson 10-18-2023 Reminders - From: Roya Álvarez To: PREM Bermudez; Sent: 10/18/2023 15:39:39 EST Show up: 08/18/2024 15:39:00 EST Subject: Renal US Due Date/Time: 09/17/2024 15:39:00 EST Pt needs scheduled for TERRIE prior to 1 year appointment. Being done at [facility]. order placed. Macario Byrd [facility] Urology Office/Clinic Noteon 10-18-2023 Urology Office/Clinic [...] with voice recognition artificial intelligence software, specifically [employer], [employer] and or [employer]. Substitutions may have occurred due to the [...] Information AIDAN SCHUSTER, Araceli Treadwell, URL [address] [facility] [address] [place] [address]- Additional Instructions: 1 year w/ renal US [...] benign pr (more content not included)... Normal [facility] Comment on above: Result Comment: Elec [...] recent A1c level, as measured by his area development consultant, was 6.9%. Review of Systems PHQ Score [...] with voice recognition artificial intelligence software, specifically [employer], [employer] and or [employer]. Substitutions may have occurred due to the inherent limitations of voice recognition and artificial intelligence software. ATTESTATION: Documentation services were performed after patient or guardian consented to allow [email or web address] to record this visit. HEMANTH nuisance wildlife specialist and provider reviewed before signing. HEMANTH: [...] under fluo (more content not included)... Normal [facility] Comment on above: Result Comment: Elec [...] Araceli BERMUDEZ MD Where: [facility] Invalid Interpretation Code [address] [place] [address]- \.br \ Monday 9:30 AM EDT \.br\ With:\.br\ Where: [facility] Consultation Noteon 09-18-20 23 Consultation Note [id number] 20 [id number]#1.0 0TIFF Normal [facility] A1C with Estimated Average G luon 09-11-2023 HbA1c (Bld) [Mass fraction] 6.900 % High 4.3-5.6 % [facility] [employer] Other HbA1c (Bld) [Mass fraction] 151 mg/dL [facility] [employer] Other Glucose [Mass/Vol] 151 mg/dL Normal [facility] Comment on above: Order Comment: Reaso n for 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 Performed By: #### A 1C [facility] eA #### [facility] [address] [place] [address] HbA1c (Bld) [Mass fraction] 6.9 % High 4.3-5.6 [facility] Comment on above: Order Comment: Reaso n for Exam Type 2 diabetes mellitus with diabetic chronic kidney diseas Result Comment: Incr eased risk for diabetes: 5.7 - 6.4 diabetes: >6.4 glycemic control for adults with diabetes: <7.0 Performed By: #### A 1C [facility] eA #### [facility] [address] [place] [address] Glucose - FINGER STICKon Glucose [Mass/Vol] 138 mg/dL [facility] [employer] Other Glucose mean value [Mass/vol ume] in Blood Estimated from glycated hemoglobinOrdered By: Aldo Middleton on 09-11-2023 Average glucose Estimated from glycated hemoglobin (Bld) [Mass/Vol] 151 mg/dL [facility] Hemoglobin A1c percentageOrd ered By: Aldo Middleton on 09-11-2023 HbA1c (Bld) [Mass fraction] 6.9 % 4.3-5.6 [facility] Comment on above: Increased risk for d iabetes: 5.7 - 6.4diabetes: >6.4glycemic control for adults with diabetes: <7.0 Consultation Noteon 09-06-20 Consultation Note [id number]#1.00 TIFF Normal [facility] Consultation Noteon 08-28-20 Consultation Note [id number]#1.00 TIFF Normal [facility] US UNI ankle/arm indiceson 1 10-24-2022 US UNI ankle/arm indices [facility] [place] [address] Ultrasound Report Signed Patient: Dong Whitmore MR#: [id number] : 1950 Acct:[id number] Age/Sex: 73 / M ADM Date: 08/24/23 Loc: [facility] Room: Type: [facility] Attending Dr: Eligio Soni MD Ordering Provider: [...] Eligio Soni MD08/24/2023 3:31 PM Dictation Location: [place] [address] Tech: Britney Sotelo Transcribed By: [facility] 08/24/23 1531 Dictated By: Eligio Soni MD 08/24/23 1530 Signed By: 08/24/23 1531 Normal [facility] US venous duplex LE RTon US venous duplex LE RT [facility] [place] [address] Ultrasound Report Signed Patient: Dong Whitmore MR#: [id number] : 1950 Acct:[id number] Age/Sex: 73 / M ADM Date: 08/24/23 Loc: [place] Room: Type: [facility] Attending Dr: Eligio Soni MD Ordering Provider: [...] Eligio Soni MD08/24/2023 3:31 PM Dictation Location: [place] [address] Tech: Coby Gibson Transcribed By: CIRO 08/24/23 1531 Dictated By: Eligio Soni MD 08/24/23 1531 Signed By: 08/24/23 1531 [facility] Ambulatory Visit Summaryon 10-21-2022 Ambulatory Visit Summary DONG WHITMORE :1950 [...] With: Kristofer SCHUSTER, Haider Bee Where: [facility] [place] Invalid Interpretation Code [address], [address] [place] [address]- \.br \ Monday 9:30 AM EDT \.br\ With:\.br\ Where: [facility] Medicine Office/Clini c [...] kidney d (more content not included)... Normal [facility] Comment on above: Result Comment: Elec [...] oz glass (more content not included)... Normal [facility] Pre-Visit Planningon 023 Pre-Visit Planning - From: Ceci Yu To: Kristofer SCHUSTER, Haider Bee; Sent: 08/17/2023 10:44:28 EST Subject: Pre-Visit Planning Due Date/Time: 08/17/2023 10:44:00 EST Caller Name: DONG WHITMORE; Caller Number: H , B [phone] Nm Dr. Hickman. During a pre-visit planning [...] feel free to contact me at extension [phone]. Thank you! Ceci Yu LPN Invalid Interpretation Code [address] [facility] Consultation Noteon 08-10-20 Consultation Note [id number]#1.0 0TIFF Normal [facility] Family Medicine Office/Clini c Noteon 07-26-2023 [...] continue to monitor along. Ordered: A1c POC 95069 Body Mass Index (BMI) documented 3008F Current [...] disease) - As above Ordered: A1c POC 49154 Body Mass Index (BMI) documented 3008F Current [...] stage 3a) - Stable Ordered: A1c POC 18364 Body Mass Index (BMI) documented 3008F Current [...] - No new issues Ordered: A1c POC 89508 Body Mass Index (BMI) documented 3008F Current [...] - BMI education given Ordered: A1c POC 68086 Body Mass Index (BMI) documented 3008F Current [...] last ye (more content not included)... Normal [facility] Comment on above: Result Comment: Elec [...] numbers. This can be done either in Azeri (U.S.) or metric measurements. Note that charts and online BMI calculators are available to help you find your BMI quickly and easily without having to do these calculations yourself. To calculate your BMI in Azeri (U.S.) measurements: 1. Measure your weight in [...] for Disease Control and Prevention: www.cdc.gov ? [place] Heart Association: www.heart.org ? National Heart, Lung, and Blood [place]: www.nhlbi.nih.gov Summary ? Body mass index (BMI) is a number that is calculated from a person's weight and height. ? BMI may help estimate how much of a person's weight is composed of fat. BMI can help identify those who may be at higher risk for certain medical problems. ? BMI can be measured using Azeri measurements or metric measurements. ? BMI charts are used to identify whether you are underweight, normal weight, overweight, or obese. This information is not intended to replace advice given to you by your health care provider. Make sure you discuss any questions you have with your health care provider. Document Revised: 06/17/2020 Document Reviewed: 04/24/2020 [employer] Patient Education ? 2022 [employer] [facility] Physician Referralon 023 Physician Referral [id number]#1. 00TIFF [facility] Pre-Visit Planningon 023 Pre-Visit Planning - From: Ceci Yu To: Kristofer SCHUSTER, Haider Bee; Sent: 07/24/2023 15:20:33 EDT Subject: Pre-Visit Planning Due Date/Time: 07/24/2023 15:20:00 EDT Caller Name: DONG WHITMORE; Caller Number: H , B [phone] Nm Dr. Hickman. During a pre-visit planning [...] feel free to contact me at extension [phone]. Thank you! Ceci Yu LPN From: Kristofer SCHUSTER, Haider Bee To: Ceci Yu; Sent: 07/24/2023 16:58:10 EDT Subject: RE: Pre-Visit Planning Caller Name: DONG WHITMORE; Caller Number: H , B [phone] OK to add the first one. Thank you Normal [address] [place] [address] A1C HEMOGLOBINon 05-09-2023 HbA1c (Bld) [Mass fraction] 7.6 % [employer] Other Glucose - FINGER STICKon Glucose [Mass/Vol] 215 mg/dL [employer] Other HbA1c (Bld) [Mass fraction]o n 02-14-2023 A1C HEMOGLOBIN [employer] Other ECHOCARDIO M/2D COMPLETEon 0 12-30-2022 ECHOCARDIO M/2D COMPLETE Patient: DONG WHITMORE Exam Date: 12/30/2022 : 1950 Gender:M Ordering : MARY APARICIO [facility] Admission #: [id number] Family : Order #: [id number] CLICK HERE TO VIEW EXAM ECHOCARDIOGRAM REPORT [...] Thibodeaux M.D. on 12/30/2022 at 18:49 Normal [facility] STRESS/REST MULTIon 12-29 NC STRESS/REST MULTI Patient: HAIM DONG NurSuzie Exam Date: 12/29/2022 : 1950 Gender:M Ordering : MARY APARICIO [facility] Admission #: [id number] Family : Order #: [id number] CLICK HERE TO VIEW EXAM RADIOLOGY REPORT [...] Morales M.D. on 12/30/2022 at 09:41 Normal [facility] US MAMI DOP LEG RTon 12-09-19 [...] by: MORGAN ROJO Date: 2022-12-08 16:15 Normal [facility] TSHon 11-25-2022 TSH 2.370 uIU/mL Normal 0.358-3.740 [facility] Comment on above: Performed By: #### T #### [facility] [address] [place] [address] Dr. Eli Jarvis BNPon 11-08-2022 Natriuretic peptide B (Bld) [Mass/Vol] 122.0 pg/mL Normal <=900.0 [facility] Comment on above: Performed By: #### C MP, BNP #### [facility] [address] [place], [place] [address] Dr. Eli Jarvis CBC AUTO DIFFon 11-08-2022 BASO # 0.1 103/ul Normal 0.0-0.1 [facility] Comment on above: Performed By: #### C BC ####[facility] [address] [place] [address]DrSuzie Jarvis Basophils/100 WBC (Bld) 0.7 % Normal 0.2-2.0 [facility] Comment on above: Performed By: #### C BC ####[facility] [address] [place] [address]DrSuzie Jarvis EO # 0.2 103/ul Normal 0.0-0.7 [facility] Comment on above: Performed By: #### C BC ####[facility] [address] [place], [place] [address]DrSuzie Jarvis Eosinophils/100 WBC (Bld) 3.5 % Normal 0.9-7.0 [facility] Comment on above: Performed By: #### C BC ####[facility] [address] [place], [place] [address]DrSuzie Jarvis Erythrocyte distribution width (RBC) [Ratio] 13.8 % Normal 11.0-15.0 [facility] Comment on above: Performed By: #### C BC ####[facility] [address] [place] [address]DrSuzie Jarvis Hematocrit (Bld) [Volume fraction] 42.0 % Normal 42.0-54.0 [facility] Comment on above: Performed By: #### C BC ####[facility] [address] [place], [place] [address]DrSuzie Jarvis Hemoglobin (Bld) [Mass/Vol] 13.8 g/dL Critically low 14.0-18.0 [facility] Comment on above: Performed By: #### C BC ####[facility] [address] [place], [place] [address]DrSuzie Jarvis IG # 0.03 10e3/ul Normal 0.00-0.03 [facility] Comment on above: Performed By: #### C BC ####[facility] [address] [place] [address]DrSuzie Eli Jarvis IG % 0.4 % Normal 0.0-0.5 [facility] Comment on above: Performed By: #### C BC ####[facility] [address] [place] [address]DrSuzie Eli Jarvis LYMPH # 1.3 103/ul Normal 1.2-3.8 [facility] Comment on above: Performed By: #### C BC ####[facility] [address] [place], [place] [address]DrSuzie Eli Matheus Lymphocytes/100 WBC (Bld) 18.8 % Critically low 20.5-60.0 [facility] Comment on above: Performed By: #### C BC ####[facility] [address] [place], [place] [address]DrSuzie Eli Jarvis MANUAL DIFF REQ NO Normal [facility] Comment on above: Performed By: #### C BC ####[facility] [address] [place], [place] [address]DrSuzie Eli Jarvis MCH (RBC) [Entitic mass] 27.8 pg Normal 25.9-34.0 [facility] Comment on above: Performed By: #### C BC ####[facility] [address] [place], [place] [address]DrSuzie Eli Jarvis MCHC (RBC) [Mass/Vol] 32.9 g/dL Normal 29.9-35.2 [facility] Comment on above: Performed By: #### C BC ####[facility] [address] [place], [place] [address]DrSuzie Eli Jarvis MCV (RBC) [Entitic vol] 84.7 fL Normal 80.0-94.0 [facility] Comment on above: Performed By: #### C BC ####[facility] [address] [place], [place] [address]DrSuzie Eli Matheus MONO # 0.6 103/ul Normal 0.3-0.8 [facility] Comment on above: Performed By: #### C BC ####[facility] [address] [place] [address]Dr. Eli Jarvis Monocytes/100 WBC (Bld) 8.5 % Normal 1.7-12.0 [facility] Comment on above: Performed By: #### C BC ####[facility] [address] [place] [address]Dr. Eli Jarvis NEUT # 4.7 103/ul Normal 1.4-6.5 [facility] Comment on above: Performed By: #### C BC ####[facility] [address] [place] [address]Dr. Eli Jarvis Neutrophils/100 WBC (Bld) 68.1 % Normal 43.0-75.0 [facility] Comment on above: Performed By: #### C BC ####[facility] [address] [place] [address]Dr. Eli Jarvis Platelet mean volume (Bld) [Entitic vol] 10.3 fL Normal 9.5-13.5 [facility] Comment on above: Performed By: #### C BC ####[facility] [address] [place] [address]Dr. Eli Jarvis PLT 189 103/ul Normal 150-450 [facility] Comment on above: Performed By: #### C BC ####[facility] [address] [place] [address]Dr. Eli Jarvis RBC 4.96 106/ul Normal 4.70-6.10 [facility] Comment on above: Performed By: #### C BC ####[facility] [address] [place] [address]Dr. Eli Jarvis WBC 7.0 103/ul Normal 4.0-11.0 [facility] Comment on above: Performed By: #### C BC ####[facility] [address] [place] [address]Dr. Eli Jarvis PROF 14(COMP METB)on 023 Albumin [Mass/Vol] 3.6 g/dL Normal 3.4-5.0 [facility] Comment on above: Performed By: #### C MP, BNP #### [facility] [address] [place] [address] Dr. Eli Jarvis Albumin/Globulin [Mass ratio] 1.1 {ratio} Normal [facility] Comment on above: Performed By: #### C MP, BNP #### [facility] [address] [place] [address] [address] Eli Jarvis ALP [Catalytic activity/Vol] 90 U/L Normal 46-116 [facility] Comment on above: Performed By: #### C MP, BNP #### [facility] [address] [place] [address] [address] Eli Jarvis ALT [Catalytic activity/Vol] 42 U/L Normal 16-63 [facility] Comment on above: Performed By: #### C MP, BNP #### [facility] [address] [place] [address] Dr. Eli Jarvis Anion gap [Moles/Vol] 13.5 mmol/L Normal [facility] Comment on above: Performed By: #### C MP, BNP #### [facility] [address] [place] [address] [address] Eli Jarvis AST [Catalytic activity/Vol] 26 U/L Normal 15-37 [facility] Comment on above: Performed By: #### C MP, BNP #### [facility] [address] [place] [address] Dr. Eli Jarvis Bilirubin [Mass/Vol] 0.4 mg/dL Normal 0.2-1.0 [facility] Comment on above: Performed By: #### C MP, BNP #### [facility] [address] [place] [address] [address] Eli Jarvis Calcium [Mass/Vol] 9.3 mg/dL Normal 8.5-10.1 [facility] Comment on above: Performed By: #### C MP, BNP #### [facility] [address] [place] [address] [address] Eli Jarvis Chloride [Moles/Vol] 104 mmol/L Normal 98-107 [facility] Comment on above: Performed By: #### C MP, BNP #### [facility] [address] [place] [address] [address] Eli Jarvis CO2 [Moles/Vol] 25.7 mmol/L Normal 21.0-32.0 [facility] Comment on above: Performed By: #### C MP, BNP #### [facility] [address] [place] [address] [address] Eli Jarvis Creatinine [Mass/Vol] 1.32 mg/dL Critically high 0.70-1.30 [facility] Comment on above: Performed By: #### C MP, BNP #### [facility] [address] [place] [address] Dr. Eli Jarvis EGFR-AF CYMRAES >60 Normal >=60 [facility] Comment on above: Performed By: #### C MP, BNP #### [facility] [address] [place] [address] [address] Eli Jarvis EGFR-NON AF CYMRAES 53 mL/min/1.73m2 Critically low >=60 [facility] Comment on above: Performed By: #### C MP, BNP #### [facility] [address] [place] [address] Dr. Eli Jarvis Globulin (S) [Mass/Vol] 3.3 g/dL Normal [facility] Comment on above: Performed By: #### C MP, BNP #### [facility] [address] [place] [address] [address] Eli Jarvis Glucose [Mass/Vol] 154 mg/dL Critically high 74-106 [facility] Comment on above: Performed By: #### C MP, BNP #### [facility] [address] [place] [address] [address] Eli Jarvis Potassium [Moles/Vol] 4.2 mmol/L Normal 3.5-5.1 [facility] Comment on above: Performed By: #### C MP, BNP #### [facility] [address] [place] [address] [address] Eli Jarvis Protein [Mass/Vol] 6.9 g/dL Normal 6.4-8.2 [facility] Comment on above: Performed By: #### C MP, BNP #### [facility] [address] [address] [address] Eli Jarvis Sodium [Moles/Vol] 139 mmol/L Normal 136-145 [facility] Comment on above: Performed By: #### C MP, BNP #### [facility] [address] [address] [address] Eli Jarvis Urea nitrogen [Mass/Vol] 23.0 mg/dL Critically high 7.0-18.0 [facility] Comment on above: Performed By: #### C MP, BNP #### [facility] [address] [address] [address] Eli Jarvis Urea nitrogen/Creatinine [Mass ratio] 17.4 mg/mg Normal [facility] Comment on above: Performed By: #### C MP, BNP #### [facility] [address] [place] [address] Dr. Eli Jarvis A1C HEMOGLOBINon 11-07-2022 HbA1c (Bld) [Mass fraction] 7.6 % [employer] Other Glucose - FINGER [employer]on Glucose [Mass/Vol] 172 mg/dL [employer] Other HbA1c (Bld) [Mass fraction]o n 11-07-2022 A1C HEMOGLOBIN [employer] [facility] Other US KIDNEYSon 2022 US KIDNEYS EXAMINATION: [...] MORGAN ROJO Date: 2022 18:30 Normal [facility] A1C HEMOGLOBINon 07-27-2022 HbA1c (Bld) [Mass fraction] 7.2 % [employer] Other Glucose - FINGER STICKon Glucose [Mass/Vol] 160 mg/dL [employer] Other HbA1c (Bld) [Mass fraction]o n 07-27-2022 A1C HEMOGLOBIN [employer] Other A1C HEMOGLOBINon 04-21-2022 HbA1c (Bld) [Mass fraction] 7.6 % [employer] Other Glucose - FINGER STICKon Glucose [Mass/Vol] 184 mg/dL [employer] Other HbA1c (Bld) [Mass fraction]o n 04-21-2022 A1C HEMOGLOBIN [employer] Other [employer] Creat Ratio,Uon Albumin DL <= 20 mg/L (U) [Mass/Vol] 10.2197124 mg/dL High 0.0-1.8 mg/dL [employer] Other Albumin/Creatinine DL <= 20 mg/L (U) [Mass ratio] 70.778810 mg/g High 0.0-30.0 mg/g [employer] Other Creatinine (U) [Mass/Vol] 838.6771335 mg/dL [employer] Other CBC AUTO DIFFon 04-07-2022 BASO # 0.0 103/ul Normal 0.0-0.1 [facility] Comment on above: Performed By: #### C BC #### [facility] [address] [place] [address] Dr. Eli Jarvis Basophils/100 WBC (Bld) 0.6 % Normal 0.2-2.0 [facility] Comment on above: Performed By: #### C BC #### [facility] [address] [place] [address] Dr. Eli Jarvis EO # 0.2 103/ul Normal 0.0-0.7 [facility] Comment on above: Performed By: #### C BC #### [facility] [address] [place] [address] Dr. Eli Jarvis Eosinophils/100 WBC (Bld) 2.9 % Normal 0.9-7.0 [facility] Comment on above: Performed By: #### C BC #### [facility] [address] [place] [address] Dr. Eli Jarvis Erythrocyte distribution width (RBC) [Ratio] 13.8 % Normal 11.0-15.0 [facility] Comment on above: Performed By: #### C BC #### [facility] [address] [place] [address] Dr. Eli Jarvis Hematocrit (Bld) [Volume fraction] 40.7 % Critically low 42.0-54.0 [facility] Comment on above: Performed By: #### C BC #### [facility] [address] [place] [address] Dr. Eli Jarvis Hemoglobin (Bld) [Mass/Vol] 13.3 g/dL Critically low 14.0-18.0 [facility] Comment on above: Performed By: #### C BC #### [facility] [address] [place] [address] Dr. Eli Jarvis IG # 0.04 10e3/ul Critically high 0.00-0.03 [facility] Comment on above: Performed By: #### C BC #### [facility] [address] [place] [address] Dr. Eli Jarvis IG % 0.6 % Critically high 0.0-0.5 [facility] Comment on above: Performed By: #### C BC #### [facility] [address] [place] [address] Dr. Eli Jarvis LYMPH # 1.3 103/ul Normal 1.2-3.8 [facility] Comment on above: Performed By: #### C BC #### [facility] [address] [place] [address] Dr. Eli Jarvis Lymphocytes/100 WBC (Bld) 18.7 % Critically low 20.5-60.0 [facility] Comment on above: Performed By: #### C BC #### [facility] [address] [place] [address] Dr. Eli Jarvis MANUAL DIFF REQ NO Normal [facility] Comment on above: Performed By: #### C BC #### [facility] [address] [place] [address] Dr. Eli Jarvis MCH (RBC) [Entitic mass] 28.1 pg Normal 25.9-34.0 [facility] Comment on above: Performed By: #### C BC #### [facility] [address] [place] [address] Dr. Eli Jarvis MCHC (RBC) [Mass/Vol] 32.7 g/dL Normal 29.9-35.2 [facility] Comment on above: Performed By: #### C BC #### [facility] [address] [place] [address] Dr. Eli Jarvis MCV (RBC) [Entitic vol] 86.0 fL Normal 80.0-94.0 [facility] Comment on above: Performed By: #### C BC #### [facility] [address] [place] [address] Dr. Eli Jarvis MONO # 0.4 103/ul Normal 0.3-0.8 [facility] Comment on above: Performed By: #### C BC #### [facility] [address] [place] [address] Dr. Eli Jarvis Monocytes/100 WBC (Bld) 6.2 % Normal 1.7-12.0 [facility] Comment on above: Performed By: #### C BC #### [facility] [address] [place] [address] Dr. Eli Jarvis NEUT # 4.9 103/ul Normal 1.4-6.5 [facility] Comment on above: Performed By: #### C BC #### [facility] [address] [place] [address] Dr. Eli Jarvis Neutrophils/100 WBC (Bld) 71.0 % Normal 43.0-75.0 [facility] Comment on above: Performed By: #### C BC #### [facility] [address] [address] [address] Eli Jarvis Platelet mean volume (Bld) [Entitic vol] 9.9 fL Normal 9.5-13.5 [facility] Comment on above: Performed By: #### C BC #### [facility] [address] [place] [address] Dr. Eli Jarvis PLT 184 103/ul Normal 150-450 [facility] Comment on above: Performed By: #### C BC #### [facility] [address] [place] [address] Dr. Eli Jarvis RBC 4.73 106/ul Normal 4.70-6.10 [facility] Comment on above: Performed By: #### C BC #### [facility] [address] [place] [address] Dr. Eli Jarvis WBC 6.9 103/ul Normal 4.0-11.0 [facility] Comment on above: Performed By: #### C BC #### [facility] [address] [place] [address] Dr. Eli Jarvis LIPID PROFILEon 04-07-2022 CHOL-HDL RATIO NORM SEE BELOW Normal [facility] Comment on above: Result Comment: 3.3 - 4.4 LOW RISK 4.4 - 7.1 AVERAGE RISK 7.1 - 11.0 MODERATE RISK >11.0 HIGH RISK Performed By: #### C MP, LIPID ####[facility] [address] [address]Dr. Eli Jarvis Cholesterol [Mass/Vol] 127 mg/dL Normal <=200 [facility] Comment on above: Performed By: #### C MP, LIPID ####[facility] [address] [id number]. Eli Jarvis Cholesterol in HDL [Mass/Vol] 36 mg/dL Critically low 40-60 [facility] Comment on above: Performed By: #### C MP, LIPID ####[facility] [address] [phone]. Eli Jarvis Cholesterol in LDL [Mass/Vol] 58.4 mg/dL Normal [facility] Comment on above: Performed By: #### C MP, LIPID ####[facility] [address] [phone]. Eli Jarvis Cholesterol.total/Ch olesterol in HDL [Mass ratio] 3.5 {ratio} Normal [facility] Comment on above: Performed By: #### C MP, LIPID ####[facility] [address] [address]Dr. Eli Jarvis HDL NORMAL > or = 60 mg/dl - LO W CARDIOVASCULAR RISK <40 mg/dl - HIGH CARDIOVASCULAR RISK Normal [facility] Comment on above: Performed By: #### C MP, LIPID ####[facility] [address] [address]Dr. Eli Jarvis LDL CALC NORMAL SEE BELOW Normal [facility] Comment on above: Result Comment: <100 mg/dl OPTIMAL 100 - 129 mg/dl NEAR OR ABOVE OPTIMAL 130 - 159 mg/dl BORDERLINE HIGH 160 - 189 mg/dl HIGH >190 mg/dl VERY HIGH Performed By: #### C MP, LIPID ####[facility] [address] [phone]. Eli Jarvis Triglyceride [Mass/Vol] 163 mg/dL Critically high <=150 [facility] Comment on above: Performed By: #### C MP, LIPID ####[facility] [address] [address]Dr. Eli Jarvis VLDL CALC 32.6 mg/dL Normal [facility] Comment on above: Performed By: #### C MP, LIPID ####[facility] [address] [phone]. Eli Jarvis PROF 14(COMP METB)on 06-30-2 022 Albumin [Mass/Vol] 3.8 g/dL Normal 3.4-5.0 [facility] Comment on above: Performed By: #### C MP, LIPID ####[facility] [address] [address]Dr. Eli Jarvis Albumin/Globulin [Mass ratio] 1.1 {ratio} Normal [facility] Comment on above: Performed By: #### C MP, LIPID ####[facility] [address] [phone]. Eli Jarvis ALP [Catalytic activity/Vol] 89 U/L Normal 46-116 [facility] Comment on above: Performed By: #### C MP, LIPID ####[facility] [address] [address]Dr. Eli Jarvis ALT [Catalytic activity/Vol] 43 U/L Normal 16-63 [facility] Comment on above: Performed By: #### C MP, LIPID ####[facility] [address] [address]Dr. Eli Jarvis Anion gap [Moles/Vol] 10.7 mmol/L Normal [facility] Comment on above: Performed By: #### C MP, LIPID ####[facility] [address] [address]Dr. Eli Jarvis AST [Catalytic activity/Vol] 24 U/L Normal 15-37 [facility] Comment on above: Performed By: #### C MP, LIPID ####[facility] [address] [phone]. Eli Jarvis Bilirubin [Mass/Vol] 0.2 mg/dL Normal 0.2-1.0 [facility] Comment on above: Performed By: #### C MP, LIPID ####[facility] [address] [address]Dr. Eli Jarvis Calcium [Mass/Vol] 9.1 mg/dL Normal 8.5-10.1 [facility] Comment on above: Performed By: #### C MP, LIPID ####[facility] [address] [address]Dr. Eli Jarvis Chloride [Moles/Vol] 104 mmol/L Normal 98-107 [facility] Comment on above: Performed By: #### C MP, LIPID ####[facility] [address] [address]Dr. Eli Jarvis CO2 [Moles/Vol] 27.5 mmol/L Normal 21.0-32.0 [facility] Comment on above: Performed By: #### C MP, LIPID ####[facility] [address] [address]Dr. Eli Jarvis Creatinine [Mass/Vol] 1.15 mg/dL Normal 0.70-1.30 [facility] Comment on above: Performed By: #### C MP, LIPID ####[facility] [address] [address]Dr. Eli Jarvis EGFR-AF CYMRAES >60 Normal >=60 [facility] Comment on above: Performed By: #### C MP, LIPID ####[facility] [address] [address]Dr. Eli Matheus EGFR-NON AF CYMRAES >60 Normal >=60 [facility] Comment on above: Performed By: #### C MP, LIPID ####[facility] [address] [place], [place] [address]Dr. Eli Jarvis Globulin (S) [Mass/Vol] 3.4 g/dL Normal [facility] Comment on above: Performed By: #### C MP, LIPID ####[facility] [address] [address]Dr. Eli Jarvis Glucose [Mass/Vol] 157 mg/dL Critically high 74-[address] [facility] Comment on above: Performed By: #### C MP, LIPID ####[facility] [address] [address]Dr. Eli Jarvis Potassium [Moles/Vol] 4.2 mmol/L Normal 3.5-5.1 [facility] Comment on above: Performed By: #### C MP, LIPID ####[facility] [address] [address]Dr. Eli Jarvis Protein [Mass/Vol] 7.2 g/dL Normal 6.4-8.2 [facility] Comment on above: Performed By: #### C MP, LIPID ####[facility] [address] [place], [place] [address]Zn. Eli Jarvis Sodium [Moles/Vol] 138 mmol/L Normal 136-145 [facility] Comment on above: Performed By: #### C MP, LIPID ####[facility] [address] [place], [place] [address]Ah. Eli Jarvis Urea nitrogen [Mass/Vol] 26.0 mg/dL Critically high 7.0-18.0 [facility] Comment on above: Performed By: #### C MP, LIPID ####[facility] [address] [place], [place] [address]Rf. Eli Jarvis Urea nitrogen/Creatinine [Mass ratio] 22.6 mg/mg Normal [facility] Comment on above: Performed By: #### C MP, LIPID ####[facility] [address] [place], [place] [address]Gh. Eli Jarvis A1C HEMOGLOBINon 10-21-2021 HbA1c (Bld) [Mass fraction] 6.6 % [employer] Other Glucose - FINGER [employer] Glucose [Mass/Vol] 169 mg/dL [employer] Other HbA1c (Bld) [Mass fraction]o n 10-21-2021 A1C HEMOGLOBIN [facility] [employer] Other Comprehensive Metabolic Pane deann 07-29-2021 Albumin [Mass/Vol] 3.9 g/dL 3.2-5.5 [employer] Other Albumin/Globulin [Mass ratio] 1.6 {ratio} [employer] Other ALP [Catalytic activity/Vol] 63 U/L 32-92 [employer] Other ALT [Catalytic activity/Vol] 32 U/L 10-60 [employer] Other AST [Catalytic activity/Vol] 32 U/L 10-42 [place] [employer] Other Bilirubin [Mass/Vol] 0.5 mg/dL 0.3-1.2 [facility] [employer] Other Calcium [Mass/Vol] 9.7 mg/dL 8.2-10.2 [place] [employer] Other Chloride [Moles/Vol] 105 mmol/L 95-114 [facility] [employer] Other CO2 [Moles/Vol] 22.7 mmol/L 22.0-30.0 [facility] [employer] Other Creatinine [Mass/Vol] 1.28 mg/dL 0.64-1.27 [place] [employer] Other Glucose [Mass/Vol] 111 mg/dL 70-100 [place] [employer] Other Potassium [Moles/Vol] 4.1 mmol/L 3.5-5.1 [place] [employer] Other Protein [Mass/Vol] 6.3 g/dL 6.1-7.9 [place] [employer] Other Sodium [Moles/Vol] 139 mmol/L 136-146 [place] [employer] Other Urea nitrogen [Mass/Vol] 23 mg/dL 9-23 [place] [employer] Other Comprehensive Metabolic Panel 55 [place] [employer] Other Comprehensive Metabolic Panel > 60 [employer] Other Comprehensive Metabolic Panel 2.4 [employer] Other Hepatitis Acute Panelon 10-2 Hepatitis Acute Panel Negative Negative [place] [employer] Other Hepatitis Acute Panel <0.1 0.0-0.9 [place] [employer] Other Vital Signs Date Time Vital Sign Value Performing Clinician Facility 08-29-2024 09:27-0500 Body mass index (BMI) [Ratio] 45.93 kg/m2 Groverer Lalo DO Work Phone: [facility] 08-29-2024 09:27-0500 Body weight 125.19 kg Christopher Lalo DO Work Phone: [facility] 08-29-2024 09:27-0500 Diastolic blood pressure 76 mm[Hg] Jamisonopher Lalo DO Work Phone: [facility] 08-29-2024 09:27-0500 Heart rate 64 /min Christalixer Lalo DO Work Phone: [facility] 08-29-2024 09:27-0500 SaO2% (BldA) [Mass fraction] 95 % [facility] Work Phone: [facility] 08-29-2024 09:27-0500 Systolic blood pressure 134 mm[Hg] Groverer Lalo DO Work Phone: [facility] 08-14-2024 09:59-0500 Body mass index (BMI) [Ratio] 40.46 kg/m2 Chiqui Robles MD Work Phone: [facility] 08-14-2024 09:59-0500 Body weight 117.2 kg Chiqui Robles MD Work Phone: [facility] 08-14-2024 09:59-0500 Diastolic blood pressure 69 mm[Hg] Chiqui Robles MD Work Phone: [facility] 08-14-2024 09:59-0500 Heart rate 59 /min Chiqui Robles MD Work Phone: [facility] 08-14-2024 09:59-0500 Respiratory rate 16 /min Chiqui Robles MD Work Phone: [facility] 08-14-2024 09:59-0500 SaO2% (BldA) [Mass fraction] 97 % Chiqui Robles MD Work Phone: [facility] 08-14-2024 09:59-0500 Systolic blood pressure 137 mm[Hg] Chiqui Robles MD Work Phone: [facility] 08-08-2024 09:32-0400 Body height 165.1 cm Bassam Aguilar DPM Work Phone: [facility] 08-08-2024 09:32-0400 Body mass index (BMI) [Ratio] 42.43 kg/m2 Bassam Aguilar DPM Work Phone: [facility] 08-08-2024 09:32-0400 Body weight 115.67 kg Bassam Aguilar DPM Work Phone: [facility] 08-08-2024 09:32-0400 Diastolic blood pressure 79 mm[Hg] Bassam Aguilar DPM Work Phone: [facility] 08-08-2024 09:32-0400 Heart rate 82 /min Bassam Aguilar DPM Work Phone: [facility] 08-08-2024 09:32-0400 Systolic blood pressure 128 mm[Hg] Bassam Aguilar DPM Work Phone: [facility] 08-06-2024 09:53-0400 Body height 165.1 cm Khai Heard DO Work Phone: [facility] 08-06-2024 09:53-0400 Body mass index (BMI) [Ratio] 42.43 kg/m2 Khai Heard DO Work Phone: [facility] 08-06-2024 09:53-0400 Body weight 115.67 kg Khai Heard DO Work Phone: [facility] 07-31-2024 10:20-0400 Body height 165.1 cm Shyam Freeman DPM FACFAS Work Phone: [facility] 07-31-2024 10:20-0400 Body mass index (BMI) [Ratio] 42.43 kg/m2 Shyam Freeman DPM [employer] Work Phone: [facility] 07-31-2024 10:20-0400 Body weight 115.67 kg Shyam Dolce DPM [employer] Work Phone: [facility] 07-31-2024 10:20-0400 Diastolic blood pressure 79 mm[Hg] Shyam Dolce DPM [employer]AC[employer] Work Phone: [facility] 07-31-2024 10:20-0400 Heart rate 68 /min Shyam Dolce DPM [employer] Work Phone: [facility] 07-31-2024 10:20-0400 Systolic blood pressure 128 mm[Hg] Shyam Dolce DPM [employer] Work Phone: [facility] 07-24-2024 10:12-0400 Body height 165.1 cm Shyam Dolce DPM [employer] Work Phone: [facility] 07-24-2024 10:12-0400 Body mass index (BMI) [Ratio] 42.43 kg/m2 Shyam Dolce DPM [employer] Work Phone: [facility] 07-24-2024 10:12-0400 Body weight 115.67 kg Shyam Dolce DPM [employer] Work Phone: [facility] 07-24-2024 10:12-0400 Diastolic blood pressure 78 mm[Hg] Shyam Dolce DPM [employer] Work Phone: [facility] 07-24-2024 10:12-0400 Heart rate 83 /min Shyam Dolce DPM [employer] Work Phone: [facility] 07-24-2024 10:12-0400 Systolic blood pressure 131 mm[Hg] Shyam Dolce DPM [employer]AC[employer] Work Phone: [facility] 07-23-2024 09:37-0400 Body height 165.1 cm [employer]len [employer] Work Phone: [facility] 07-23-2024 09:37-0400 Body mass index (BMI) [Ratio] 42.43 kg/m2 [employer]len [employer] Work Phone: [facility] 07-23-2024 09:37-0400 Body weight 115.67 kg Arlen [employer] Work Phone: [facility] 04-24-2024 08:50-0400 Body height 170.2 cm Chiqui Robles MD Work Phone: [facility] 04-24-2024 08:50-0400 Body mass index (BMI) [Ratio] 42.28 kg/m2 Chiqui Robles MD Work Phone: [facility] 04-24-2024 08:50-0400 Body weight 122.47 kg Chiqui Robles MD Work Phone: [facility] 04-24-2024 08:50-0400 Diastolic blood pressure 89 mm[Hg] Chiqui Robles MD Work Phone: [facility] 04-24-2024 08:50-0400 Heart rate 61 /min Chiqui Robles MD Work Phone: [facility] 04-24-2024 08:50-0400 SaO2% (BldA) [Mass fraction] 95 % Chiqui Robles MD Work Phone: [facility] 04-24-2024 08:50-0400 Systolic blood pressure 122 mm[Hg] Chiqui Robles MD Work Phone: [facility] 02-29-2024 13:41-0400 Body height 170.2 cm Herberth Araujo MD, PhD Work Phone: [facility] 02-29-2024 13:41-0400 Body mass index (BMI) [Ratio] 42.29 kg/m2 Herberth rAaujo MD, PhD Work Phone: [facility] 02-29-2024 13:41-0400 Body temperature 97.39 [degF] Herberth Araujo MD, PhD Work Phone: [facility] 02-29-2024 13:41-0400 Body weight 122.47 kg Herberth Araujo MD, PhD Work Phone: [facility] 02-29-2024 13:41-0400 Diastolic blood pressure 73 mm[Hg] Herberth Araujo MD, PhD Work Phone: [facility] 02-29-2024 13:41-0400 Heart rate 62 /min Herberth Araujo MD, PhD Work Phone: [facility] 02-29-2024 13:41-0400 SaO2% (BldA) [Mass fraction] 94 % Herberth Araujo MD, PhD Work Phone: [facility] 02-29-2024 13:41-0400 Systolic blood pressure 138 mm[Hg] Herberth Araujo MD, PhD Work Phone: [facility] 02-05-2024 12:17-0400 Body weight 124.74 kg Francoise Singletary MD Work Phone: [facility] 02-05-2024 12:17-0400 Diastolic blood pressure 70 mm[Hg] Francoise Singletary MD Work Phone: [facility] 02-05-2024 12:17-0400 Heart rate 80 /min Francoise Singletary MD Work Phone: [facility] 02-05-2024 12:17-0400 Systolic blood pressure 131 mm[Hg] Francoise Singletary MD Work Phone: [facility] 09-11-2023 11:00-0500 Body height 167.64 cm Tondra Mapus Other [facility] 09-11-2023 11:00-0500 Body mass index (BMI) [Ratio] 44.91 kg/m2 Tondra Mapus Other [facility] [employer] Other 09-11-2023 11:00-0500 Body weight 126.24 kg Tondra Mapus Other [employer] [facility] [employer] Other 09-11-2023 11:00-0500 Body weight 126.23 kg MD Scarlet Johnson Work Phone: [facility] 09-11-2023 11:00-0500 Diastolic blood pressure 82 mm[Hg] Tondra Mapus Other [facility] 09-11-2023 11:00-0500 Respiratory rate 18 /min Tondra Mapus Other [facility] [employer] Other 09-11-2023 11:00-0500 SaO2% (BldA) [Mass fraction] 99 % Tondra Mapus Other [facility] [employer] Other 09-11-2023 11:00-0500 Systolic blood pressure 153 mm[Hg] Tondra Mapus Other [facility] 08-24-2023 13:45-0500 Body height 167.64 cm Eligio Soni Other [facility] 08-24-2023 13:45-0500 Body mass index (BMI) [Ratio] 44.22 kg/m2 Eligio Soni Other [facility] [employer] Other 08-24-2023 13:45-0500 Body temperature 97.4 [degF] Eligio Soni Other [facility] [employer] Other 08-24-2023 13:45-0500 Body weight 124.29 kg Eligio Soni Other [facility] [employer] Other 08-24-2023 13:45-0500 Body weight 124.28 kg MD Scarlet Johnson Work Phone: [facility] 08-24-2023 13:45-0500 Diastolic blood pressure 60 mm[Hg] Eligio Soni Other [facility] 08-24-2023 13:45-0500 SaO2% (BldA) [Mass fraction] 97 % Eligio Soni Other [facility] [employer] Other 08-24-2023 13:45-0500 Systolic blood pressure 130 mm[Hg] Eligio Soni Other [facility] 03-07-2023 10:00-0400 Body height 167.64 cm eTrry Kimblediff Other [employer] Other 03-07-2023 10:00-0400 Body mass index (BMI) [Ratio] 43.61 kg/m2 Terry Kimblediff Other [employer] Other 03-07-2023 10:00-0400 Body weight 122.56 kg Terry Rigoberto Other [employer] Other 03-07-2023 10:00-0400 Diastolic blood pressure 70 mm[Hg] Terry Kelley Other [employer] Other 03-07-2023 10:00-0400 Respiratory rate 20 /min Terry Kimblediff Other [employer] Other 03-07-2023 10:00-0400 SaO2% (BldA) [Mass fraction] 96 % Terry Kimblediff Other [employer] Other 03-07-2023 10:00-0400 Systolic blood pressure 134 mm[Hg] Terry Kelley Other [employer] Other 02-14-2023 09:45-0400 Body height 172.72 cm Tona Mapus Other [employer] Other 02-14-2023 09:45-0400 Body mass index (BMI) [Ratio] 41.32 kg/m2 Tondra Mapus Other [employer] Other 02-14-2023 09:45-0400 Body weight 123.29 kg Tondra Mapus Other [employer] Other 02-14-2023 09:45-0400 Diastolic blood pressure 82 mm[Hg] Tondra Mapus Other [employer] Other 02-14-2023 09:45-0400 Respiratory rate 18 /min Tondra Mapus Other [employer] Other 02-14-2023 09:45-0400 SaO2% (BldA) [Mass fraction] 97 % Tondra Mapus Other [employer] Other 02-14-2023 09:45-0400 Systolic blood pressure 157 mm[Hg] Tondra Mapus Other [employer] Other 01-20-2023 12:15-0400 Body height 172.72 cm Carito Fitt Other [employer] Other 01-20-2023 12:15-0400 Body mass index (BMI) [Ratio] 40.71 kg/m2 Carito Fitt Other [employer] Other 01-20-2023 12:15-0400 Body weight 121.47 kg Carito Fitt Other [facility] Other 01-05-2023 11:15-0400 Body height 172.72 cm Terry Kelley Other [facility] Other 01-05-2023 11:15-0400 Body mass index (BMI) [Ratio] 40.96 kg/m2 Terry Kelley Other [facility] Other 01-05-2023 11:15-0400 Body weight 122.2 kg Terry Kimblediff Other [facility] Other 01-05-2023 11:15-0400 Diastolic blood pressure 73 mm[Hg] Terry Kimblediff Other [facility] Other 01-05-2023 11:15-0400 Respiratory rate 18 /min Terry Kimblediff Other [facility] Other 01-05-2023 11:15-0400 SaO2% (BldA) [Mass fraction] 98 % Terry Kimblediff Other [facility] Other 01-05-2023 11:15-0400 Systolic blood pressure 143 mm[Hg] Terry Kimblediff Other [facility] Other 11-24-2022 12:15-0500 Body height 172.72 cm Carito Fitt Other [facility] Other 11-24-2022 12:15-0500 Body mass index (BMI) [Ratio] 42.22 kg/m2 Carito Fitt Other [facility] Other 11-24-2022 12:15-0500 Body weight 125.96 kg Carito Fitt Other [facility] Other 11-18-2022 11:15-0500 Body height 172.72 cm Terry Rigoberto Other [facility] Other 11-18-2022 11:15-0500 Body mass index (BMI) [Ratio] 41.96 kg/m2 Terry Kelley Other [facility] Other 11-18-2022 11:15-0500 Body weight 125.19 kg Terry Kelley Other [facility] Other 11-18-2022 11:15-0500 Diastolic blood pressure 75 mm[Hg] Terry Kelley Other [facility] Other 11-18-2022 11:15-0500 Respiratory rate 18 /min Terry Kelley Other [facility] Other 11-18-2022 11:15-0500 SaO2% (BldA) [Mass fraction] 99 % Terry Kelley Other [facility] Other 11-18-2022 11:15-0500 Systolic blood pressure 148 mm[Hg] Terry Kelley Other [facility] Other 11-07-2022 10:15-0500 Body height 172.72 cm Tondra Grantus Other [facility] Other 11-07-2022 10:15-0500 Body mass index (BMI) [Ratio] 42.58 kg/m2 Tondra Mapus Other [facility] Other 11-07-2022 10:15-0500 Body weight 127.05 kg Tondra Mapus Other [facility] Other 11-07-2022 10:15-0500 Diastolic blood pressure 83 mm[Hg] Tondra Mapus Other [facility] Other 11-07-2022 10:15-0500 Respiratory rate 18 /min Tondra Mapus Other [facility] Other 11-07-2022 10:15-0500 SaO2% (BldA) [Mass fraction] 98 % Tondra Mapus Other [facility] Other 11-07-2022 10:15-0500 Systolic blood pressure 170 mm[Hg] Tondra Mapus Other [facility] Other 10-18-2022 15:00-0500 Body height 172.72 cm Carito Fitt Other [facility] Other 2022 16:15-0400 Body height 172.72 cm Carito Fitt Other [facility] Other 07-27-2022 12:00-0400 Body height 172.72 cm Tondra Mapus Other [facility] Other 07-27-2022 12:00-0400 Body mass index (BMI) [Ratio] 40.9 kg/m2 Tondra Mapus Other [facility] Other 07-27-2022 12:00-0400 Body weight 122.02 kg Tondra Mapus Other [facility] Other 07-27-2022 12:00-0400 Diastolic blood pressure 75 mm[Hg] Tondra Mapus Other [facility] Other 07-27-2022 12:00-0400 Respiratory rate 20 /min Tondra Mapus Other [facility] Other 07-27-2022 12:00-0400 SaO2% (BldA) [Mass fraction] 97 % Tondra Mapus Other [facility] Other 07-27-2022 12:00-0400 Systolic blood pressure 141 mm[Hg] Tondra Mapus Other [facility] Other 06-08-2022 10:45-0400 Body height 172.72 cm Carito Fitt Other [facility] Other 04-21-2022 12:00-0400 Body height 172.72 cm Tondra Mapus Other [facility] Other 04-21-2022 12:00-0400 Body mass index (BMI) [Ratio] 39.67 kg/m2 Tondra Mapus Other [facility] Other 04-21-2022 12:00-0400 Body weight 118.34 kg Tondra Mapus Other [facility] Other 04-21-2022 12:00-0400 Diastolic blood pressure 74 mm[Hg] Tondra Mapus Other [facility] Other 04-21-2022 12:00-0400 Respiratory rate 20 /min Tondra Mapus Other [facility] Other 04-21-2022 12:00-0400 SaO2% (BldA) [Mass fraction] 97 % Tondra Mapus Other [facility] Other 04-21-2022 12:00-0400 Systolic blood pressure 143 mm[Hg] Tondra Mapus Other [facility] Other 10-21-2021 12:00-0500 Body height 172.72 cm Tondra Mapus Other [facility] Other 10-21-2021 12:00-0500 Body mass index (BMI) [Ratio] 40.14 kg/m2 Tondra Mapus Other [facility] Other 10-21-2021 12:00-0500 Body weight 119.75 kg Tondra Mapus Other [facility] Other 10-21-2021 12:00-0500 Diastolic blood pressure 78 mm[Hg] Tondra Mapus Other [facility] Other 10-21-2021 12:00-0500 Respiratory rate 20 /min Tondra Mapus Other [facility] Other 10-21-2021 12:00-0500 SaO2% (BldA) [Mass fraction] 97 % Tondra Mapus Other [facility] Other 10-21-2021 12:00-0500 Systolic blood pressure 147 mm[Hg] Tondra Mapus Other [facility] Other 07-21-2021 15:45-0400 Body height 172.72 cm Morgan Kunz Other [facility] Other 07-21-2021 15:45-0400 Body mass index (BMI) [Ratio] 38.77 kg/m2 Morgan Kunz Other [facility] Other 07-21-2021 15:45-0400 Body weight 115.67 kg Morgan Kunz Other [facility] Other 12-14-2017 15:17-0500 Body height 170.18 cm MD Scarlet Johnson Work Phone: [facility] Encounters Encounter Date Encounter Type Care Provider Facility Start: 11-06-2024 ambulatory Araceli Mile BERMUDEZ Facility :[facility] Start: 09-02-2024 End: 09-02-2024 ambulatory Miguelangel Mac MD Facility: [facility] Start: 08-29-2024 End: 08-29-2024 Bamboo flowsheet Groverer Lalo DO Work Phone: [facility] Start: 08-29-2024 End: 08-29-2024 Bamboo flowsheet Matthew May DO Work Phone: [facility] Start: 08-29-2024 End: 08-29-2024 Office outpatient new 45 minutes Matthew May DO Work Phone: [facility] Comment on above: Right foot pain (Brie jesse Dx); Diabetic polyneuropathy associated with type 2 diabetes mellitus ([facility]/HCC) Start: 08-29-2024 End: 08-29-2024 ambulatory MATTHEW MAY Not Available Start: 08-15-2024 End: 08-15-2024 ambulatory MD Haider Hickman Facility:[facility] Start: 08-14-2024 End: 08-14-2024 ambulatory HAIDER HICKMAN Facility:[facility] Start: 08-14-2024 End: 08-14-2024 Patient encounter procedure Chiqui Robles MD Work Phone: Neurology Pain Comment on above: 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; Chronic toe pain, right foot; Class 3 severe obesity with serious comorbidity and body mass index (BMI) of 40.0 to 44.9 in adult, unspecified obesity type ([facility]) Start: 08-08-2024 End: 08-08-2024 Bamboo flowsheet Bassam [...] underlying condition with diabetic polyneuropathy, 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 fpc insulin use (CMS/HCC); Pain due to onychomycosis of toenails of both feet Start: 08-08-2024 End: 08-08-2024 ambulatory BASSAM AGUILAR Not Available Start: 08-07-2024 End: 08-07-2024 ambulatory [facility] Start: 08-06-2024 End: 08-06-2024 Bamboo flowsheet Khai [...] 08-01-2024 End: 08-01-2024 ambulatory MD Haider Hickman Facility:[facility] Start: 07-31-2024 End: 07-31-2024 Bamboo flowsheet Shyam Freeman DPM FACFAS Work Phone: [facility] Start: 07-31-2024 End: 07-31-2024 Bamboo flowsheet Shyam Freeman DPM FACFAS Work Phone: [facility] Start: 07-31-2024 End: 07-31-2024 Office outpatient visit 15 minutes Shyam D Dolce DPM FACFAS Work Phone: [facility] Comment on above: 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); Diabetes 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, 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 terminal carman insulin use ([facility]); Amputation of right great toe ([facility]) Start: 07-31-2024 End: 07-31-2024 ambulatory SHYAM D DOLCE Not Available Start: 07-24-2024 End: 07-24-2024 Bamboo flowsheet Shyam D Dolce DPM FACFAS Work Phone: [facility] Start: 07-24-2024 End: 07-24-2024 Bamboo flowsheet Shyam D Dolce DPM FACFAS Work Phone: [facility] Start: 07-24-2024 End: 07-24-2024 Office outpatient visit 25 minutes Shyam D Dolce DPM FACFAS Work Phone: [facility] Comment on above: 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); Diabetes 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, 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 terminal carman insulin use ([facility]) Start: 07-24-2024 End: 07-24-2024 ambulatory SHYAM D DOLCE Not Available Start: 07-23-2024 End: 07-23-2024 Bamboo flowsheet Arlen Sanchez DO Work Phone: [facility] Start: 07-23-2024 End: 07-23-2024 Bamboo flowsheet Arlen Sanchez DO Work Phone: [facility] Start: 07-23-2024 End: 07-23-2024 Office outpatient visit 25 minutes Arlen Sanchez DO Work Phone: [facility] Comment on above: Internal derangement of left shoulder (Primary Dx); Arthritis of left acromioclavicular joint; Complete tear of left rotator cuff, 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 traumatic; Left shoulder pain, unspecified chronicity Start: 07-23-2024 End: 07-23-2024 ambulatory ARLEN Nur MARIA G Not Available Start: 07-19-2024 End: 07-22-2024 Refill Chiqui Robles MD Work Phone: Neurology Pain Comment on above: Med Change Request Start: 07-19-2024 End: 07-19-2024 ambulatory ELAINE FISHER [facility] Start: 07-17-2024 End: 07-18-2024 ambulatory Araceli Treadwell AIDAN Facility:[facility] Comment on above: Medication Question Start: 07-03-2024 End: 07-03-2024 ambulatory SHYAM D DOLCE Not Available Start: 07-01-2024 End: 07-01-2024 ambulatory MIHIR B APLING Not Available Start: 06-26-2024 End: 06-26-2024 ambulatory MARY [facility] Start: 06-25-2024 End: 06-25-2024 ambulatory KAJAL R DOLCE Not Available Start: 06-19-2024 End: 06-19-2024 ambulatory Kajal R Dolce Facility:[facility] Start: 06-19-2024 End: 06-19-2024 ambulatory SHYAM D DOLCE Not Available Start: 06-18-2024 End: 06-18-2024 ambulatory BASSAM A JEFF Not Available Start: 06-12-2024 End: 06-12-2024 ambulatory Kajal R Dolce Facility:[facility] Start: 06-12-2024 End: 06-12-2024 ambulatory MIHIR B APLING Not Available Start: 06-07-2024 End: 06-07-2024 [facility] Britney Hyde PhD Work Phone: Pain Recovery Comment on above: Adjustment disorder with depressed mood (Primary Dx); Complex regional pain syndrome type II of right lower limb; Chronic toe pain, right foot Start: 06-05-2024 End: 06-05-2024 ambulatory Kajal R Dolce Facility:[facility] Start: 05-27-2024 End: 05-27-2024 ambulatory MIHIR B APLING Not Available Start: 05-23-2024 ambulatory Chiqui chapa MD Work Phone: Neurology Pain Comment on above: taking memantine HCL Start: 05-22-2024 End: 05-22-2024 ambulatory DAVID ACOSTA [facility] Start: 05-13-2024 End: 05-13-2024 ambulatory Haider Hickman Facility:[facility] Start: 05-09-2024 End: 05-09-2024 ambulatory BASSAM AGUILAR Not Available Start: 05-07-2024 ambulatory Morgan Trinidad Therapist Work Phone: Pain Recovery Comment on above: next step, resources Start: 05-07-2024 E-mail encounter fro m caregiver Morgan Trinidad Therapist Work Phone: Pain Recovery Start: 05-06-2024 End: 05-06-2024 [facility] Morgan Trinidad Therapist Work Phone: Pain Recovery Comment on above: Adjustment disorder with depressed mood (Primary Dx); Complex regional pain syndrome type II of right lower limb; Chronic toe pain, right foot Start: 04-24-2024 End: 04-24-2024 ambulatory HAIDER HICKMAN Facility:[facility] Start: 04-24-2024 End: 04-24-2024 Patient encounter procedure [...] 04-23-2024 End: 04-23-2024 ambulatory MD Haider Hickman [facility] Start: 04-03-2024 End: 04-03-2024 ambulatory HERBERTH ARAUJO Facility:[facility] Start: 03-26-2024 End: 03-26-2024 ambulatory Haider Hickman [facility] Start: 03-19-2024 Telephone encounter Herberth meyers MD, PhD Work Phone: Pain Management Comment on above: Nurse Triage Call Start: 03-08-2024 End: 03-08-2024 ambulatory Haider Hickman Facility:[facility] Start: 03-07-2024 End: 03-07-2024 ambulatory Haider Hickman Facility:[facility] Start: 02-29-2024 End: 02-29-2024 ambulatory HERBERTH ARAUJO Facility:[facility] Start: 02-29-2024 End: 02-29-2024 Patient encounter procedure [...] Start: 02-05-2024 End: 02-05-2024 ambulatory FRANCOISE SINGLETARY Facility:[facility] Start: 02-05-2024 End: 02-05-2024 Patient encounter procedure Francoise Singletary MD Work Phone: Pain Management Comment on above: Chronic toe pain, ri ght foot (Primary Dx); Painful diabetic neuropathy (HCC); Class 3 severe obesity with serious comorbidity and body mass index (BMI) of 40.0 to 44.9 in adult, unspecified obesity type (HCC) Start: 01-24-2024 End: 01-24-2024 ambulatory Araceli BERMUDEZ Facility:[facility] Start: 01-22-2024 End: 01-22-2024 ambulatory MACY MCPHERSON Not Available Start: 01-04-2024 End: 01-04-2024 ambulatory Araceli BERMUDEZ Facility:[facility] Start: 01-03-2024 End: 01-03-2024 ambulatory MIHIR PARISI Not Available Start: 12-29-2023 End: 12-29-2023 ambulatory Araceli BERMUDEZ Facility:[facility] Start: 12-26-2023 End: 12-26-2023 ambulatory Haider Hickman Facility:[facility] Start: 12-14-2023 End: 12-14-2023 ambulatory BASSAM AGUILAR Not Available Start: 12-04-2023 End: 12-04-2023 ambulatory Miguelangel Mac MD Facility:[facility] Start: 10-18-2023 End: 10-18-2023 ambulatory Araceli Mile BERMUDEZ Facility: [place] Start: 10-16-2023 End: 10-16-2023 ambulatory Miguelangel Mac MD Facility:[facility] [place] Start: 10-05-2023 End: 10-05-2023 ambulatory BASSAM AGUILAR Not Available Start: 09-25-2023 End: 09-25-2023 ambulatory Miguelangel Mac MD Facility:[facility] Start: 09-20-2023 End: 09-20-2023 ambulatory Haider Hickman Facility:[facility] Start: 09-12-2023 End: 09-12-2023 ambulatory Tondra Mapus Other [facility] Other Start: 09-12-2023 Telephone encounter Tondra Mapus [facility] Start: 09-11-2023 (DM) Diabetes Tondra Mapus [facility] Start: 09-11-2023 End: 09-12-2023 ambulatory MD Scarlet Johnson Work Phone: [facility] [employer] Other Start: 09-11-2023 End: 09-11-2023 Discharged Recurring MD Scarlet Johnson Work Phone: [facility] Work Phone: Start: 09-11-2023 End: 09-11-2023 Patient encounter procedure MD Scarlet Johnson Work Phone: [facility] Work Phone: Start: 08-24-2023 End: 08-24-2023 Patient encounter procedure MD Scarlet Johnson Work Phone: [facility]Ul[facility] Start: 08-24-2023 End: 08-24-2023 ambulatory MD Scarlet Johnson Work Phone: [facility] Work Phone: Start: 08-24-2023 Office outpatient ne w 60 minutes Eligio Soni [facility] Start: 08-24-2023 End: 08-24-2023 Patient encounter procedure MD Scarlet Johnson Work Phone: [facility] Work Phone: Start: 08-21-2023 End: 08-21-2023 ambulatory Haider Hickman Facility:[facility] Start: 07-26-2023 End: 07-26-2023 ambulatory Haider Bee Kristofer Facility:[facility] Start: 06-14-2023 End: 06-14-2023 ambulatory Tondra Mapus Other [facility] Other Start: 06-14-2023 Telephone encounter Tondra Mapus [facility] Start: 06-09-2023 End: 06-09-2023 ambulatory Carito Frandyt Other [facility] Other Start: 06-09-2023 Nursing evaluation o f patient and report Carito West [facility] Start: 06-09-2023 Registered Recurring MD Scarlet franks Work Phone: [facility] Work Phone: Start: 05-31-2023 End: 05-31-2023 ambulatory Tondra Mapus Other [facility] Other Start: 05-31-2023 Telephone encounter Tondra Mapus [facility] Start: 03-07-2023 Follow-up encounter Terry moreno [facility] Start: 03-07-2023 End: 03-08-2023 ambulatory Terry Kelley [facility] [employer] Other Start: 02-17-2023 End: 02-17-[address] JOVITA WOODARD . Facility:[facility] Start: 02-14-2023 (DM) Diabetes Tondra Mapus [facility] Start: 02-14-2023 End: 02-14-2023 ambulatory Tondra Mapus Other [facility] Other Start: 01-20-2023 ([facility] RD FU) [facility] F/ U Registerd [employer] Driller Helper Carito West [facility] Start: 01-20-2023 End: 01-20-2023 ambulatory Carito West Other [facility] Other Start: 01-05-2023 End: 01-05-2023 ambulatory Terry Kelley Other [facility] Other Start: 01-05-2023 Follow-up encounter Terry Alston [facility] Start: 12-30-2022 End: 12-31-2022 ambulatory MARY APARICIO Facility:[facility] Start: 12-29-2022 End: 12-30-[address] BRITTNY MORALES Facility:[facility] Start: 12-21-2022 End: 01-28-[address] SCARLET JOHNSON . Facility:[facility] Start: 12-09-[address] SCARLET JOHNSON . Facil ity:[facility] Start: 12-08-2022 End: 12-09-[address] MORGAN ROJO Facility:[facility] Start: 11-25-2022 End: 11-26-[address] TERRY KELLEY Facility:[facility] Start: 11-24-2022 ([facility] WMNI) WMN Init ial Provider Carito West [facility] Start: 11-24-2022 End: 11-24-2022 ambulatory Carito West Other [facility] Other Start: 11-22-2022 End: 11-22-2022 ambulatory Tondra Mapus Other [facility] Other Start: 11-22-2022 Nursing evaluation o f patient and report Aldo Middleton [facility] Start: 11-18-2022 End: 11-18-2022 ambulatory Terry Kelley Other [facility] Other Start: 11-18-2022 Nutrition therapy Terry Kelley [facility] Start: 11-08-2022 End: 11-09-[address] SCARLET JOHNSON . Facility:[facility] Start: 11-07-2022 (DM) Diabetes Aldo Middleton [facility] Start: 11-07-2022 End: 11-07-2022 ambulatory Danieldrboom Middleton Other [facility] Other Start: 10-18-2022 (RD) Video News Editor Dawn Fitt [facility] Start: 10-18-2022 End: 10-18-2022 ambulatory Carito West Other [facility] Other Start: 08-18-2022 End: 08-19-[address] BRITTNY MORALES Facility:[facility] Start: 2022 ([facility] DB FU) [facility] Diabetes F/U Carito West [facility] Start: 2022 End: 08-11-[address] ARACELI BERMUDEZ [place] [employer] Other Start: 07-29-2022 End: 07-30-[address] SCARLET JOHNSON . Facility:[facility] Start: 07-27-2022 (DM) Diabetes Tondra Emi [facility] Start: 07-27-2022 End: 07-27-2022 ambulatory Tondra Juanitaus Other [facility] Other Start: 06-08-2022 (Di[employer]per) Monika Alston [facility] Start: 06-08-2022 End: 06-08-2022 ambulatory Carito West Other [facility] Other Start: 04-21-2022 (DM) Diabetes Tondra Mapus [facility] Start: 04-21-2022 End: 04-21-2022 ambulatory Tondra Mapus Other [facility] Other Start: 04-21-2022 Telephone encounter Tondra Mapus [facility] Start: 04-07-2022 End: 04-08-[address] SCARLET JOHNSON . Facility: Start: 10-21-2021 (DM) Diabetes Tondra Mapus [facility] Start: 10-21-2021 End: 10-21-2021 ambulatory Tondra Mapus Other [facility] Other Start: 07-21-2021 Office outpatient ne w 45 minutes Morgan Kunz [facility] Procedures Date Procedure Procedure Detail Performing Clinician Start: 08-24-2023 Duplex scan of lower limb veins MD Scarlet Johnson Work Phone: Plan of Treatment Date Care Activity Detail Author Start: 07-23-2025 ambulatory Ambulatory Facility:[facility] Start: 05-15-2025 ambulatory Ambulatory Facility:[facility] Start: 10-17-2024 End: 10-17-2024 Patient encounter procedure 10/17/2024 10:20 AM EST Procedure Visit [facility] [address] [facility] [address] [place] [address] Bassam Aguilar, DPSherrell [address] [facility] [address] [place] [address] [facility] Start: 09-24-2024 ambulatory Ambulatory Facility:[facility] Start: 08-29-2024 End: 08-29-2024 Patient encounter procedure 08/29/2024 9:30 AM EST Office Visit [facility] [address] [place] [address] Matthew May, DO [address] [place], [place] [id number] Arrived [facility] Comment on above: Arrived Start: 08-27-2024 End: 08-27-2024 Patient encounter procedure 08/27/2024 3:15 PM EST Office Visit [facility] [address] [place] [address] Gallo Gayle, DO [address] [place], [place] [id number] [facility] Start: 08-14-2024 End: 08-14-2024 Patient encounter procedure 08/14/2024 10:00 AM EST Office Visit Neurology Pain [id number] [place] [address] Chiqui Robles MD [address] [place], [place] [id number] 1 Month Follow Up [facility]rology Pain Comment on above: 1 Month Follow Up Start: 2024 RSV Vaccine (1 - 1-dose 75+ series) RSV Vaccine (1 - 1-dose 75+ series) [facility] Start: 08-08-2024 End: 08-08-2024 Patient encounter procedure [facility] Comment on above: Diabetes mellitus due to underlying cond ition with diabetic polyneuropathy, 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 terminal carman insulin use ([facility]) (Primary Dx); Pain due to onychomycosis of toenails of both feet; Amputation of toe of right foot ([facility]) Start: 08-06-2024 End: 08-06-2024 Patient encounter procedure 08/06/2024 9:45 AM EDT Office Visit [facility] [address] [place] [id number] Khai Heard, DO [address] [place] [address] [facility] Start: 07-31-2024 End: 07-31-2024 Patient encounter procedure [facility] Comment on above: Arrived Start: 07-24-2024 End: 07-24-2024 Patient encounter procedure [facility] Comment on above: Arrived Start: 07-23-2024 End: 07-23-2024 Patient encounter procedure 07/23/2024 9:45 AM EDT Office Visit [facility] [address] [facility] [address] [place] [address] Arlen Sanchez, [address] [facility] [address] [place] [address] Internal derangement of left shoulder (Primary Dx); Arthritis of left acromioclavicular joint; Complete tear of left rotator cuff, 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 traumatic [facility] Comment on above: Internal derangement of left shoulder (P rimary Dx); Arthritis of left acromioclavicular joint; Complete tear of left rotator cuff, 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 traumatic Start: 06-09-2024 Covid-19 Vaccine ( season) Covid-19 Vaccine ( season) [facility] Start: 06-09-2024 Influenza vaccination [facility] Start: 06-07-2024 End: 06-07-2024 ambulatory 06/07/2024 12:30 PM EDT [facility] [address] [place] [address] Britney Hyde, PhD [address] [id number] [facility] Comment on above: [facility] Start: 05-06-2024 End: 05-06-2024 ambulatory 05/06/2024 9:00 AM EDT [facility] [id number] [id number] Morgan Trinidad, Therapist [address] [place] [address] PAIN PSYCH Pain Recovery Comment on above: PAIN PSYCH Start: 04-17-2024 End: 04-17-2024 Patient encounter procedure 04/17/2024 10:00 AM EDT Office Visit Pain Management [id number] [phone] Eufemia Ortiz PA-C [address] [place] [address] SUTURAL REMOVAL Pain Management Comment on above: SUTURAL REMOVAL Start: 04-03-2024 End: 04-03-2024 Admission to same day surgery center 04/03/2024 10:00 AM EDT - 04/03/2024 11:05 AM EDT Surgery Pain Management [address] [id number] Herberth Araujo MD, PhD [address] [place] [address] Right L4 and L5 DRG Trial Pain Management Comment on above: Right L4 and L5 DRG Trial Start: 04-03-2024 End: 04-03-2024 Prq impltj nstim electrode array epidural PERCUTANEOUS IMPLANT LEAD NEUROSTIM EPIDURAL TRIAL Chronic toe pain, right foot Complex regional pain syndrome type II of right lower limb 04/03/2024 10:00 AM EDT [facility] Start: 04-03-2024 Subsequent hospital visit by physician 04/03/2024 10:00 AM EDT Hospital Encounter Pain Management [address] [place] [address] Herberth Araujo MD, PhD [address] [place] [address] Chronic toe pain, right foot [M79.674, G89.29], Complex regional pain syndrome type II of right lower limb [G57.71] Pain Management Comment on above: Chronic toe pain, right foot [M79.674, G 89.29], Complex regional pain syndrome type II of right lower limb [G57.71] Start: 10-09-2023 Advance Directive Discussion Advance Directive Discussion [facility] Start: 10-09-2023 Behavioral Health Screening Behavioral Health Screening [facility] Start: 06-09-2023 Covid-19 Vaccine ( season) Covid-19 Vaccine ( season) [facility] Start: 10-16-2019 Pneumococcal Vaccine: 65+ Years (2 of 2 - PCV) Pneumococcal Vaccine: 65+ Years (2 of 2 - PCV) [facility] Start: 2014 Pneumococcal Vaccine: 65+ (1 of 1 - PCV) Pneumococcal Vaccine: 65+ (1 of 1 - PCV) [facility] Start: 2009 RSV Vaccine (1 - 1-dose 60+ series) RSV Vaccine (1 - 1-dose 60+ series) [facility] Start: 2009 RSV Vaccine (1 - Risk 60-74 years 1-dose series) RSV Vaccine (1 - Risk 60-74 years 1-dose series) [facility] Start: 1999 Shingrix Vaccine (1 of 2) Shingrix Vaccine (1 of 2) [facility] Start: 1994 Diabetes Screening Diabetes Screening [facility] Start: 1994 Screening for malignant neoplasm of colon [facility] Start: 1984 Lipid panel Lipid Screening [facility] Start: 1968 Urine microalbumin profile DTaP,Tdap,Td Vaccine (1 - Tdap) [facility] Start: 1967 Annual PCP Team Chronic Disease Visit Annual PCP Team Chronic Disease Visit [facility] Start: 1967 Anxiety Screening Anxiety Screening [facility] Start: 1967 Depression Screening Depression Screening [facility] Start: 1967 Hepatitis B surface antibody level LDL Cholesterol [facility] Start: 1967 Hepatitis C screening Hepatitis C Screening [facility] Start: 1959 Diabetic foot examination Diabetic Foot Exam [facility] Start: 1959 Glaucoma screening Dilated Retinal Exam [facility] Start: 1959 Hepatitis B screening Urine Albumin:Creatinine Ratio [facility] Start: 1955 Pneumococcal Vaccine: 65+ (1 of 2 - PCV) Pneumococcal Vaccine: 65+ (1 of 2 - PCV) [facility] Start: 1954 Hemoglobin A1c measurement HbA1C [facility] Start: 1949 Screening for malignant neoplasm of colon [facility] Immunizations Immunization Date Immunization Notes Care Provider Margarita sunshine 07-31-2024 influenza virus vaccine, unspecified formulation Khai Heard DO Work Phone: [facility] 06-15-2023 influenza virus vaccine, unspecified formulation Arlen Sanchez DO Work Phone: [facility] 12-30-2020 COVID-19 Vaccine Moderna - Documentation Purposes Only Morgan Kunz Other [facility] 12-02-2020 COVID-19 Vaccine Moderna - Documentation Purposes Only Morgan Kunz Other [facility] Payers Date Payer Category Payer Private Health Insurance [employer] [id number] 2021 Unknown [id number] [id number]. [id number] 2017 Self-pay [id number] 2017 Unknown [id number] 2012 Medicare [id number]. [id number] 2012 Medicare [id number] 1959 Medicare [id number] 2.16.840.1.507404.19 1959 Unknown [id number] 2.16.840.1.160882.19 1949 Unknown [id number] 2.16.840.1.804155.3.579.2. 593 1949 Unknown [id number] 2.16.840.1.218427.3.579.2. 593 1949 Unknown [id number] 2.16.840.1.128073.3.579.2. 593 1949 Unknown [id number] 2.16.840.1.786480.3.579.2. 593 1949 Unknown [id number] 2.16.840.1.956514.3.579.2. 593 1949 Unknown [id number] 2.16.840.1.202129.3.579.2. 593 1949 Unknown [id number] 2.16.840.1.326961.3.579.2. 593 1949 Unknown [id number] 2.16.840.1.636486.3.579.2. 593 1949 Unknown [id number] 2.16.840.1.027975.3.579.2. 593 1949 Unknown [id number] 2.16.840.1.431918.3.579.2. 593 1949 Unknown [id number] 2.16.840.1.596550.3.579.2. 593 1949 Unknown [id number] 2.16.840.1.036860.3.579.2. 593 1949 Unknown [id number] 2.16.840.1.647228.3.579.2. 727 1949 Unknown [id number] 2.16.840.1.234983.3.579.2. 727 1949 Unknown [id number] 2.16.840.1.070656.3.579.2. 727 1949 Unknown [id number] 2.16.840.1.251514.3.579.2. 727 1949 Unknown [id number] 2.16.840.1.777314.3.579.2. 1949 Unknown [id number] 2.16.840.1.782411.3.579.2 1949 Unknown [id number] 2.16.840.1.189535.3.579.2 1949 Unknown [id number] 2.16.840.1.357109.3.579.2 1949 Unknown [id number] 2.16.840.1.811037.3.579.2 1949 Unknown [id number] 2.16.840.1.471533.3.579.2 1949 Unknown [id number] 2.16.840.1.813442.3.579.2 1949 Unknown [id number] 2.16.840.1.966879.3.579.2 1949 Unknown [id number] 2.16.840.1.422123.3.579.2 1949 Unknown [id number] 2.16.840.1.938751.3.579.2 1949 Unknown [id number] 2.16.840.1.180673.3.579.2 1949 Unknown [id number] 2.16.840.1.642974.3.579.2 1949 Unknown [id number] 2.16.840.1.005499.3.579.2 1949 Unknown [id number] 2.16.840.1.347706.3.579.2 1949 Unknown [id number] 2.16.840.1.975513.3.579.2 1949 Unknown [id number] 2.16.840.1.042922.3.579.2. 727 1949 Unknown [id number] 2.16.840.1.875924.3.579.2. 1949 Unknown [id number] 2.16.840.1.840188.3.579.2. 1949 Unknown [id number] 2.16.840.1.441425.3.579.2. 1949 Unknown [id number] 2.16.840.1.924727.3.579.2. 1949 Unknown [id number] 2.16.840.1.862936.3.579.2. 1949 Unknown [id number] 2.16.840.1.908039.3.579.2. 1258 1949 Unknown [id number] 2.16.840.1.852884.3.579.2. 1258 1949 Unknown [id number] 2.16.840.1.040332.3.579.2. 1258 1949 Unknown [id number] 2.16.840.1.881020.3.579.2. 1258 1949 Unknown [id number] 2.16.840.1.557049.3.579.2. 1258 1949 Unknown [id number] 2.16.840.1.909442.3.579.2. 1258 1949 Unknown [id number] 2.16.840.1.065895.3.579.2. 1258 1949 Unknown [id number] 2.16.840.1.342178.3.579.2. 1258 1949 Unknown [id number] 2.16.840.1.180676.3.579.2. 1258 1949 Unknown [id number] 2.16.840.1.197366.3.579.2. 1258 1949 Unknown [id number] 2.16.840.1.415414.3.579.2. 1258 1949 Unknown [id number] 2.16.840.1.324411.3.579.2. 1258 1949 Unknown [id number] 2.16.840.1.580734.3.579.2. 1258 1949 Unknown [id number] 2.16.840.1.061205.3.579.2. 1258 1949 Unknown [id number] 2.16.840.1.936346.3.579.2. 1258 1949 Unknown [id number] 2.16.840.1.620997.3.579.2. 1258 1949 Unknown [id number] 2.16.840.1.342726.3.579.2. 1258 1949 Unknown [id number] 2.16.840.1.537851.3.579.2. 1258 1949 Unknown [id number] 2.16.840.1.515536.3.579.2. 1258 1949 Unknown [id number] 2.16.840.1.416447.3.579.2. 1258 1949 Unknown [id number] 2.16.840.1.197470.3.579.2. 1258 1949 Unknown [id number] 2.16.840.1.867412.3.579.2. 1949 Unknown [id number] 2.16.840.1.030071.3.579.2. 1949 Unknown [id number] 2.16.840.1.336195.3.579.2. 1949 Unknown [id number] 2.16.840.1.488057.3.579.2. Unknown Standard [facility] [id number] Unknown [id number] 2.16.840.1.814302.3.579.2. 531 Unknown [id number] 2.16.840.1.612114.3.579.2. 531 Unknown [id number] 2.16.840.1.886476.3.579.2. 531 Social History Date Type Detail Facility Unknown if ever smoked [facility] Start: 02-05-2024 End: 08-29-2024 Sex Assigned At [facility] Start: 1950 Sex Assigned At Male [facility] Start: 07-09-2018 End: 05-18-2023 Tobacco smoking status [facility] Never smoked tobacco (finding) [facility] Tobacco smoking status [facility] Tobacco smoking consumption unknown [facility] Start: 02-05-2024 End: 08-29-2024 History of Social function [facility] National Score (1-100), lower number is lower risk 67 [facility] Start: 1950 Sex Assigned At Not on file [facility] Start: 05-18-2023 End: 02-29-2024 Tobacco use and exposure Smokeless tobacco non-user [facility] Start: 02-29-2024 End: 08-29-2024 Alcohol intake Ex-drinker (finding) [facility] NEGATED: Highlighted rowStart: NINF History of tobacco [...] believes a few years ago in the [place] office. Review of Systems Constitutional: Negative for [...] (CMS/HCC) Hypertension (CMS/HCC) PVD (peripheral vascular disease) ([facility]) Past Surgical History: Procedure Laterality Date CARDIAC SURGERY 2013 stents CARPAL TUNNEL RELEASE Right PROSTATE SURGERY TOE AMPUTATION TOE SURGERY Right 3,5th Family History Problem Relation Name Age of [...] , wrist extensors , wrist flexor , laminating machine offbearer strength 5/5. LUE Strength deltoid , biceps , triceps , wrist extensors , wrist flexor , laminating machine offbearer strength 5/5. RLE Strength illopsoas, quadriceps, tibialis [...] reflex 0. Del Real's sign negative. Coordination: Pblzqp-aw-mxkb testing and rapid alternating movements are normal [...] is already established with pain management in [place] and suggest that they can see them [...] to ketamine infusions with pain management in [place]. I suggested, if epidural is not successful, that they consider follow up thereof. The patient can follow up with us on an as-needed basis. Thank you for consultation. Pt has been fully educated on their diagnosis, lab results, treatment options, follow up plan, return instructions, and discussion of mental health issues documented in this encounter [facility] 08-14-2024 Note HNO ID: [id number] Author: CHIQUI ROBLES MD Service: ? Author Type: Physician Type: Progress Notes Filed: 08/26/2024 16:34 Note Text: [facility] STAFF PHYSICIAN NOTE OF PERSONAL INVOLVEMENT IN [...] - psychotherapy was utilized during the visit. Hpsm-yr-hqwq time: [id number] (16-37 mins) actual time spend in psychotherapy 18 minutes Type of therapeutic intervention:Supportive Target symptoms: Pain coping skills and Acceptance and adapting Progress/Session notes:processing Interactive Complexity: None STAFF PHYSICIAN:: Chiqui Robles MD DATE of SERVICE: 08/14/2024 [facility] 08-14-2024 History of Present illness Narrative [facility] STAFF PHYSICIAN NOTE OF PERSONAL INVOLVEMENT IN [...] - psychotherapy was utilized during the visit. Dthr-kk-lwej time: 44610 (16-37 mins) actual time spend in psychotherapy 18 minutes Type of therapeutic intervention:Supportive Target symptoms: Pain coping skills and Acceptance and adapting Progress/Session notes:processing Interactive Complexity: None STAFF PHYSICIAN:: Chiqui Robles MD DATE of SERVICE: 08/14/2024 [facility] [place] August 14, 2024 This is a face [...] 2024 10:37 AM documented in this encounter [facility] 08-14-2024 Note HNO ID: [id number] Author: CLAUDIA CHILEL MD Service: ? Author Type: Resident Type: Progress Notes Filed: 08/14/2024 10:51 Note Text: [facility] [place] August 14, 2024 This is a face [...] MD, AMANDA August 14, 2024 10:37 AM [facility] 08-08-2024 History of Present illness Narrative Patient: [...] Diagnosis Date COVID-19 vaccine series completed Diabetes ([facility]/HCC) Hypercholesterolemia ([facility]/HCC) Hypertension ([facility]/HCC) PVD (peripheral vascular disease) ([facility]) Medications: Current Outpatient Medications: acarbose (Precose) 50 [...] Partner Violence: Unknown (11/30/2023) Received from [facility], [facility] [place] [employer] Fear of Current [...] underlying condition with diabetic polyneuropathy, 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 fpc insulin use ([facility]) 2. Pain due to onychomycosis of toenails of both feet 3. Amputation of toe of right foot ([facility]) PLAN Debride nails in length and thickness [...] Bassam Aguilar DPM documented in this encounter [facility] 08-07-2024 Note [facility] Note Reason for cardiology [...] DM type 2 (diabetes mellitus, type 2) ([facility]), HLD (hyperlipidemia), HTN (hypertension), Neuropathy, and ULISES [...] DAY SUBCUTANEOUSLY DIRECTED, Disp: , Rfl: omega 2-jwv-poe-fish oil (Fish OiL) 1,200 (144-216) mg capsule, [...] right bundle branch block Echo 07/08/2024 at [facility] Echo 12/30/2022 Echo 11/15/2016 Nuclear stress test 12/29/2022 at [facility] EKG portion Assessment and Plan: Coronary artery disease, status post prior PTCA of the left circumflex artery and RCA in 2012 Last stress test 12/30/2022 which was negative for ischemia with normal ejection fraction He is on aspirin, metoprolol, and simvastatin. Clinically stable Severe LVH on recent echo probably due to uncontrolled hypertensi (more content not included)... [facility] 07-31-2024 History of Present illness Narrative Images [...] Hypertension (CMS/HCC) PVD (peripheral vascular disease) (CMS/HCC) Medications: Current Outpatient Medications: acarbose (Precose) 50 [...] < 3 seconds Digits 1-5 bilateral NEURO: [place] Crista 5.07 monofilament was intact B/L. Vibratory [...] underlying condition with diabetic polyneuropathy, 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 fpc insulin use ([facility]) 3. Amputation of right great toe ([facility]) PLAN Patient had no improvement with diagnostic injection. I feel the this point the pain is not related to his toe but appears to be from his low back sciatic issue spoke with his primary care physician they plan to work him up for low back concerns Shaym Freeman DPM FACFAS documented in this encounter [facility] 07-24-2024 History of Present illness Narrative Images [...] Diagnosis Date COVID-19 vaccine series completed Diabetes ([facility]/HCC) Hypercholesterolemia ([facility]) Hypertension ([facility]) PVD (peripheral vascular disease) ([facility]) Medications: Current Outpatient Medications: acarbose (Precose) 50 [...] < 3 seconds Digits 1-5 bilateral NEURO: [place] Crista 5.07 monofilament was intact B/L. Vibratory [...] leg. AUGUSTIN Horn documented in this encounter [facility] 07-23-2024 History of Present illness Narrative Images from the original note were not included. HISTORY OF PRESENT ILLNESS: Dong Whitmore is an 73 y.o. @ male. Chief complaint LT shoulder pain LT Shoulder: here for MRI results [facility] 07/15/24 8 1/2 weeks ago pt fell, went to [facility] ER on 05/24/24 and had xrays [...] Diagnosis Date COVID-19 vaccine series completed Diabetes ([facility]/HCC) Hypercholesterolemia ([facility]) Hypertension ([facility]) PVD (peripheral vascular disease) ([facility]) ALLERGIES: Allergies Allergen Reactions Cefuroxime Unknown Celecoxib [...] IMAGING: MRI of the shoulder from the [facility] had revealed a full-thickness tear of the [...] Sanchez/darion Sanchez D.O. documented in this encounter [facility] 07-19-2024 Note Cardiovascular Medic ine [place] [facility] SUBJECTIVE No chief complaint on file. [...] Obesity Sleep apnea Type 2 diabetes mellitus ([facility]/HCC) Complex regional pain syndrome type II of right lower limb Coronary arteriosclerosis in [place] artery Current use of insulin ([facility]) Dietary counseling and surveillance Past Medical History: Diagnosis Date CAD (coronary artery disease) DM type 2 (diabetes mellitus, type 2) ([facility]) HLD (hyperlipidemia) HTN (hypertension) Neuropathy ULISES (obstructive [...] DAY SUBCUTANEOUSLY DIRECTED, Disp: , Rfl: omega 6-rrx-bpz-fish oil (Fish OiL) 1,200 (144-216) mg capsule, [...] Behavior: Behavior nor (more content not included)... [facility] 07-18-2024 Telephone encounter Note Patient told to schedule an appt to discuss in detail [facility] 07-18-2024 Miscellaneous Notes Patient told to schedule an appt to discuss in detail documented in this encounter [facility] 07-17-2024 Note Patient Education Nephrology Dietary Guidelines [...] ? 8 oz (237 mL) of milk, wepfask-bqljvlbhclmy-qhusg milk, and calcium-fortifiedfruit juice. Calcium-fortified means that [...] Spinach (cooked), rhubarb, beets, sweet potatoes, and [place]er chard. ? Peanuts. ? Potato chips, somali fries, and baked potatoes with skin on. ? Nuts and nut products. ? Chocolate. ? If you regularly take a diuretic medicine, make sure to eat at least 1 or 2 servings of fruits or vegetables that are high in potassium each day. These include: ? Avocado. ? Banana. ? [place], prune, carrot, or tomato juice. ? Baked [...] fish oil, or vitamin B6. ? Take ahvo-ars-prcoplw and prescription medicines only as told by your health care provider. These include suppleme (more content not included)... [facility] 06-26-2024 Note Cardiovascular Medic [facility] SUBJECTIVE Chief Complaint Patient presents with [...] with lymphedema. He follows with endocrinology in [place]. He has MILLER - this is unchanged. [...] [facility]. He is seeing the commercial ocean clammer. 01/23/2023 He is down about 10lbs since [...] Obesity Sleep apnea Type 2 diabetes mellitus ([facility]) Complex regional pain syndrome type II of right lower limb Coronary arteriosclerosis in [place] artery Current use of insulin ([facility]) Dietary counseling and surveillance Past Medical History: Diagnosis Date CAD (coronary artery disease) DM type 2 (diabetes mellitus, type 2) ([facility]) HLD (hyperlipidemia) HTN (hypertension) Neuropathy ULISES (obstructive [...] venlafaxine 37.5 mg (more content not included)... [facility] 06-26-2024 Note Patient here for 1 y ear follow up CAD, hypertension, and hyperlipidemia. Had lipid panel this past December. Had foot surgery last week. Denies chest pain, SOB, palpitations, and lightheadedness/syncope. 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 Review of Systems Cardiovascular: Positive for leg swelling (RLE). Musculoskeletal: Positive for joint pain. All other systems reviewed and are negative. [facility] 06-07-2024 Note HNO ID: [id number] Author: BRITNEY HYDE, PhD Service: ? Author Type: Psychologist Type: Progress Notes Filed: 06/07/2024 14:24 Note Text: [facility] Behavioral Medicine Group Session I have communicated my name and active licensure. The patient's identity and physical location were verified at the time of this visit. Either the patient or their legal counter sales representative has been informed of the risks and benefits of -- and alternatives to -- treatment through virtual visit and consents to proceed with the session remotely. The patient e-signed the Informed Consent for Psychological Evaluation AND Care Form, and the [facility] health care insurance benefits, fees for service, emergency procedures, and the limits of confidentiality that may pertain with any given case were discussed with the patient. The patient was given a copy of the consent form on [employer]. The patient consented to a virtual visit and their location was confirmed. Patient location: [facility] confirmed Patient Name: Dong Whitmore CC#: [id number] Date of service: June 07, 2024 Subjective: [...] additional pain management education Britney Hyde, PhD [phone] [facility] 06-07-2024 History of Present illness Narrative [facility] Session I have communicated my name and active licensure. The patient's identity and physical location were verified at the time of this visit. Either the patient or their legal counter sales representative has been informed of the risks and benefits of -- and alternatives to -- treatment through virtual visit and consents to proceed with the session remotely. The patient e-signed the Informed Consent for Psychological Evaluation & Care Form, and the [facility] health care insurance benefits, fees for service, emergency procedures, and the limits of confidentiality that may pertain with any given case were discussed with the patient. The patient was given a copy of the consent form on [employer]. The patient consented to a virtual visit and their location was confirmed. Patient location: [facility] confirmed Patient Name: Dong Whitmore CC#: [id number] Date of service: June 07, 2024 Subjective: [...] additional pain management education Britney Hyde, PhD [phone] documented in this encounter [facility] 05-23-2024 Note Patient Education Infectious [...] these instructions at home: Medicines ? Take lcne-pxu-mhcwyrt and prescription medicines only as told by [...] provider. Document Revised: 07/07/2022 Document Reviewed: 07/07/2022 [employer] Patient Education ? 2022 [employer]. [facility] 05-13-2024 Note Patient Education Endocrinology Correction [...] changing your diet, or holidays. ? New exmp-yzb-zsdndyc or prescription medicines. ? Illness, stress, or [...] sure you disc (more content not included)... [facility] 05-06-2024 Note O ID: [id number] Author: MORGAN TRINIDAD, Therapist Service: ? Author Type: Therapist Type: Progress Notes Filed: 05/07/2024 08:20 Note Text: [facility] Psychological Evaluation May 06, 2024 Dong Whitmore [facility]#: [id number] I have communicated my name and active licensure. The patient's identity and physical location were verified at the time of this visit. Either the patient or their legal counter sales representative has been informed of the risks and benefits of -- and alternatives to -- treatment through virtual visit and consents to proceed with the session remotely. The patient e-signed the Informed Consent for Psychological Evaluation AND Care Form, and the [facility] health care insurance benefits, fees for service, emergency procedures, and the limits of confidentiality that may pertain with any given case were discussed with the patient. The patient was given a copy of the consent form on [employer]. The patient consented to a virtual visit and their location was confirmed. Patient location: [place], [place] CPT Code: [id number] Virtual Psych Diagnotic Eval Appointment Start: 9 AM This 73 year old retired for 15 years (he was having some medical problems, but they offered an early mcfp package that was attractive at the time) male lives with his in [place], [place]. 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 He was referred by Chiqui Robles MD for psychological evaluation in the context of chronic pain. This consultation was shared with the referral source via the [facility] electronic medical record. He believes [...] needed. pioglitazone (ACT (more content not included)... [facility] 04-24-2024 Note HNO ID: [id number] Author: CHIQUI ROBLES MD Service: ? Author Type: Physician Type: Progress Notes Filed: 04/24/2024 11:26 Note Text: [facility] STAFF PHYSICIAN NOTE OF PERSONAL INVOLVEMENT IN CARE IMPRESSION: Complex regional pain syndrome Adjustment Disorder Tried multiple injections, procedures, surgeries. No benefit Tried SCS and recently DRG without success. Discussed ketamine PLAN: Ketamine infusions Consider scrambler therapy Psych psychology Memantine 5mg Psychotherapy Add-on Progress Note Due to medical condition and comorbid psychological and behavioral concerns - psychotherapy was utilized during the visit. Vtoj-pq-cepn time: 38590 (16-37 mins) actual time spend in psychotherapy [...] which included preparing to see the patient, dflz-to-oliz patient care, completing clinical documentation, performing a medically appropriate examination, and counseling and educating the patient/family/caregiver. As noted, the patient's clinical situation is complex and serious with significant comorbidity of pain and functional limitations. This requires higher levels of time, intensity, and expense with longitudinal care and support. STAFF PHYSICIAN:: Chiqui Robles MD DATE of SERVICE: 04/24/2024 [facility] 04-24-2024 History of Present illness Narrative [facility] STAFF PHYSICIAN NOTE OF PERSONAL INVOLVEMENT IN CARE IMPRESSION: Complex regional pain syndrome Adjustment Disorder Tried multiple injections, procedures, surgeries. No benefit Tried SCS and recently DRG without success. Discussed ketamine PLAN: Ketamine infusions Consider scrambler therapy Psych psychology Memantine 5mg Psychotherapy Add-on Progress Note Due to medical condition and comorbid psychological and behavioral concerns - psychotherapy was utilized during the visit. Qzcv-bi-xukk time: 72113 (16-37 mins) actual time spend in psychotherapy [...] which included preparing to see the patient, yqke-jx-mtux patient care, completing clinical documentation, performing a medically appropriate examination, and counseling and educating the patient/family/caregiver. As noted, the patient's clinical situation is complex and serious with significant comorbidity of pain and functional limitations. This requires higher levels of time, intensity, and expense with longitudinal care and support. STAFF PHYSICIAN:: Chiqui Robles MD DATE of SERVICE: 04/24/2024 [facility] [place] April 24, 2024 This is a face [...] MD documented in this encounter [facility] 04-24-2024 Note HNO ID: [id number] Author: PARISH RIOS MD Service: ? Author Type: Resident Type: Progress Notes Filed: 04/24/2024 11:26 Note Text: [facility] [place] April 24, 2024 This is a face [...] Memantine Pain psychology consult Parish Tucker MD [facility] 03-21-2024 Telephone encounter Note Spoke with patient and notified him of provider recommendations. Verbalized understanding. Emilee So RN [facility] 03-21-2024 Miscellaneous Notes Spoke with patient and notified him of provider recommendations. Verbalized understanding. Emilee So RN Ok per Dr Araujo to proceed with trial - still recommending to keep appt with ID Spoke with patient at request of planner scheduler as patient has questions about referral to infectious disease. Patient states that he spoke with his PCP, Dr. Hickman ([phone]) who spoke with Dr. Vega in Infectious disease at [facility]. Dr. Hickman ordered lab work at the [...] RN documented in this encounter [facility] 03-21-2024 Telephone encounter Note Ok per Dr Araujo to proceed with trial - still recommending to keep appt with ID [facility] Work Phone: 03-19-2024 Telephone encounter Note Spoke with patient at request of planner scheduler as patient has questions about referral to infectious disease. Patient states that he spoke with his PCP, Dr. Hickman ([phone]) who spoke with Dr. Vega in Infectious disease at [facility]. Dr. Hickman ordered lab work at the [...] as planned. Emilee So RN [facility] 03-15-2024 Note Microbiology PROCEDURE: Blood [...] test was performed at: [facility], [address] [place] [address], [facility] , , [facility] Comment on above: Performed By: #### 1 [id number] #### [facility] [address] [place] [address] 03-15-2024 Note Microbiology PROCEDURE: Blood Culture Charcoal [...] Locations R1: This test was performed at: [facility], [address] [place] [address], [id number]- , [place], [facility] Comment on above: Performed By: #### 1 [id number] #### [facility] [address] [place] [id number] 02-29-2024 Instructions Senthil Giraldo MD - 02/29/2024 1:38 PM EDT - Right DRG trial - Obtain psychological evaluation report (patient reports he just had this done ~two months ago) and send to [facility] Pain Management Center - ID consult - Rule out infectious risk with due to the dermatitis. - Follow up: Return to clinic for the above procedure documented in this encounter [facility] 02-29-2024 Note HNO ID: [id number] Author: HERBERTH ARAUJO MD, PhD Service: ? Author Type: Physician Type: Progress Notes Filed: 03/18/2024 19:05 Note Text: [facility] Pain Management Department New Patient Consultation Referring Physician: SELF Chief Complaint: Right third toe pain SUBJECTIVE: Dong Whitmore is a 73 year old male with a pertinent past medical history of diabetes who presents to [facility]'s Pain Management Center for the evaluation of right third toe pain. 15-year history of right third toe pain. He notes that over this time the pain has become increasingly severe has caused him significant discomfort and suffering. He has been to many specialists in the [facility]-over the course of the past 15 [...] depression 10-14 Mo (more content not included)... [facility] 02-29-2024 History of Present illness Narrative Images from the original note were not included. [facility] Pain Management Department New Patient Consultation Referring Physician: SELF Chief Complaint: Right third toe pain SUBJECTIVE: Dong Whitmore is a 73 year old male with a pertinent past medical history of diabetes who presents to [facility]'s Pain Management Center for the evaluation of right third toe pain. 15-year history of right third toe pain. He notes that over this time the pain has become increasingly severe has caused him significant discomfort and suffering. He has been to many specialists in the [facility]-over the course of the past 15 [...] diabetes who presents to [facility] Pain Management Center for the evaluation of right third toe pain. He describes a 15-year history of right third toe pain. He notes that over this time the pain has become increasingly severe has caused him significant discomfort and suffering. He has been to many specialists in the [facility] area-over the course of the past [...] months ago) and send to [facility] Pain Management Center - ID [...] PhD documented in this encounter [facility] 02-06-2024 Telephone encounter Note Called and spoke to patient. Gave him this message from Dr. Singletary: I'd suggest seeking an appointment with the following doctors who perform DRG implantation: Dr. Carlisle, Dr. Araujo, Dr. Dan, Dr. Cortés Patient voiced understanding. [facility] 02-06-2024 Miscellaneous Notes Called and spoke to patient. Gave him this message from Dr. Singletary: I'd suggest seeking an appointment with the following doctors who perform DRG implantation: Dr. Carlisle, Dr. Arajuo, Dr. Dan, Dr. Cortés Patient voiced understanding. ----- Message from Francoise Singletary MD sent at 02/05/2024 3:12 PM EDT ----- Do you mind calling him and giving him the number to schedule at [facility] to discuss DRG? I'd suggest seeking an appointment with the following doctors who perform DRG implantation: Dr. Carlisle, Dr. Araujo, Dr. Dan, Dr. Moo Heard and Dr. Kamara may do DRG - I'm not sure. Thanks Lela! ----- Message ----- From: Livia Lester PA-C Sent: 02/05/2024 2:07 PM EDT To: Francoise Singletary MD No one on this side of [facility] that I know of does DRG so, we also send to [facility] I would just have Lela call the patient and tell him this is not something you do and tell him he needs to be seen a Main ----- Message ----- From: Francoise Singletary MD Sent: 02/05/2024 1:45 PM EDT To: Livia Lseter PA-C Hi! He was supposed to get referred for consideration of DRG - the only people I know who do DRG are at [facility]. How do we refer him there? From what I remember, [facility] Melendez Costandi and Moo do DRG - do you know of anyone else? documented in this encounter [facility] 02-06-2024 Telephone encounter Note ----- Message from Francoise Singletary MD sent at 02/05/2024 3:12 PM EDT ----- Do you mind calling him and giving him the number to schedule at [facility] to discuss DRG? I'd suggest seeking an appointment with the following doctors who perform DRG implantation: Dr. Carlisle, Dr. Araujo, Dr. Dan, Dr. Moo Heard and Dr. Kamara may do DRG - I'm not sure. Thanks Lela! ----- Message ----- From: iLvia Lester PA-C Sent: 02/05/2024 2:07 PM EDT To: Francoise Singletary MD No one on this side of [facility] that I know of does DRG [...] I know who do DRG are at [facility]. How do we refer him there? From what I remember, Truman Melendez Costandi, and Moo do DRG - do you know of anyone else? [facility] 02-05-2024 Instructions Francoise Singletary MD - 02/05/2024 1:01 PM EDT Thank you for taking the time to come and see me today! Please schedule an appointment for: [facility] Consult Please follow up with [facility] Neurology and Podiatry Please send all of your Podiatry, Neurology, and Pain Management records to us I will refer you to a provider who performs DRG to discuss this Please come back to see me as needed documented in this encounter [facility] 02-05-2024 History of Present illness Narrative Images from the original note were not included. [facility] Pain Management Department Consultation Date: [...] The patient has seen other pain providers. [facility] Neurology OV 02/01/22 Assessment and Plan 71 [...] has been to many specialists in the [facility]-over the course of the past 15 [...] outside records. Unfortunately during our appointment today, [facility] was down I was unable to [...] I noted before, he appears today while [facility] was down, and I not have [...] will refer him to a doctor at [facility] for consideration of DRG and to discuss the risks, benefits, alternatives. Diagnostics/Referrals: -Chronic Pain Recovery Program referral Referral to [facility] podiatry, neurology for second opinions [...] Marital Status: Unknown Medical Decision Making The [facility] EMR was reviewed during the visit including: [...] EMR documented in this encounter [facility] 02-05-2024 Note HNO ID: [id number] Author: FRANCOISE SINGLETARY MD Service: ? Author Type: Physician Type: Progress Notes Filed: 02/05/2024 15:14 Note Text: [facility] Pain Management Department Consultation Date: [...] The patient has seen other pain providers. [facility] Neurology OV 4/26/22 Assessment and Plan 71 year old man [...] has been to many specialists in the [place] area-over (more content not included)... [facility] 01-01-2024 Note [id number] [facility] 09-11-2023 Evaluation note Encounter Date Diagnosis [...] 6.9% 2. Blood glucose levels according to My [employer] Life 3 cgm download 08/29/23-09/11/23 : Avg glucose [...] Current use of insulin (ICD-10 - Z79.4) [facility] Other 11-16-2023 Evaluation note* Encounter Date Diagnosis Assessment Notes Treatment Notes Treatment Clinical Notes Aug, Cellulitis of right lower extremity (ICD-10 - L03.115) I did thoroughly review all the studies from [place]. I do not have any images to [...] include weight loss exercise and compression therapy. [facility] Other 09-01-2023 Evaluation note* Encounter Date Diagnosis [...] He was given a no cut Grif Grass Farm Laborer to try and a brochure to buy them online. We discussed the Novolog pen and that he is to use it if his BG before a meal is greater than 150. He was able to dial the pen and knows how to put the pen needle on and deliver the dose. 30 minutes were spent educating the patient by Kamlesh Sparrow RN, [facility]. [facility] Other 05-30-2023 Evaluation note* Encounter Date Diagnosis [...] February, Metabolic syndrome X (ICD-10 - E88.81) [facility] Other 05-09-2023 Evaluation note* Encounter Date Diagnosis [...] or diabetes medication issues. 6. Prescriptions: IGLESIA MULLENEVUE: Pioglitizone sent. 7. Prescriptions will not be [...] last visit, continue with weight loss efforts [facility] Other 04-14-2023 Evaluation note* Encounter Date Diagnosis [...] the following goals: Add flavors to vegetables [facility] Other 03-30-2023 Evaluation note* Encounter Date Diagnosis [...] Dec, Metabolic syndrome X (ICD-10 - E88.81) [facility] Other 03-23-2023 NoteCARDIAC STRESS TEST Requesting Physician: [...] and reported nuclear myocardial perfusion imaging.[id number]* Encounter Date Diagnosis Assessment Notes [...] following goals: 1) Increase vegetables at dinner [facility] Other 02-14-2023 Evaluation note* Encounter Date Diagnosis [...] him and his by Kamlesh Sparrow RN, [facility]. Reviewed cgm download 11/08/22-11/20/22: Avg glucose 171. >250-1%, >180-30%, 70-180-69%, <70-0%, <540%. CV 15..2%. 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 6. Prescriptions: Acarbose sent to [facility]. Sample baylee 2 cgm given [...] 2 sensor and an office owned, loaner [place]. His phone was not compatible with Baylee 2 or 3, or Dexcom G6. He previously wore the Baylee 14 day system and did not need training on applying the device. I did train him on the use of the reader. He was vgiven samples of Grif Inspector Machine Cut Glass and Skin Tac to help keep the device in place. 45 minutes were spent educating the patient by Kamlesh Sparrow RN, [facility]. [facility] Other 01-10-2023 Evaluation note* Encounter Date Diagnosis [...] for full weight management program2) Try roasted mullen peppers (recipe provided) [facility] Other 11-11-2022 NotePROCEDURE: XR FOOT RT MIN [...] Electronically authenticated by: BRITTNY MORALES Date: 2022-08-19 06:17[facility]11-02-2022 Evaluation note* Encounter Date Diagnosis Assessment [...] nuts or cheese + crackers -Only likes prydeinig cheese,-Recommended 15g or less for snacks; so [...] likes those-Increase vegetable intake-Vegetables: corn, peas, carrots [facility] Other 10-19-2022 Evaluation note* Encounter Date Diagnosis [...] referral to Dr. Kelley for weight management [facility] Other 08-31-2022 Evaluation note* Encounter Date Diagnosis [...] and his would cook it for him [facility] Other 07-14-2022 Evaluation note* Encounter Date Diagnosis [...] improved glycemia. Pt would likek referral to commercial ocean clammer. Note pt has intolerance to glp1 class [...] of glucose/bp control to prevent further nephropathy [facility] Other 01-13-2022 Evaluation note* Encounter Date Diagnosis [...] medication issues. 6. Prescriptions: Pioglitazone sent to [facility] [place]. Oct, Hyperlipidemia, unspecified hyperlipidemia type (ICD-10 - [...] brochure given today. Recommend call if interested. [facility] Other 10-13-2021 Evaluation note* Encounter Date Diagnosis Assessment Notes Treatment Notes Treatment Clinical Notes Jul, SANTANA (nonalcoholic steatohepatitis) (ICD-10 - K75.81) Jul, Other [facility] INDICATED ABOVE F/U HERE PRN [facility] Other Evaluation noteNo InformationNort [employer] Other Evaluation noteNo assessment information available [facility] Work Phone: Evaluwsnls note* Diagnosis Chronic toe pain, right foot- Primary 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, not stated as uncontrolled Class 3 severe obesity with serious comorbidity and body mass index (BMI) of 40.0 to 44.9 in adult, unspecified obesity type (HCC) [facility] Diagnosis Chronic toe pain, right foot- [...] right lower limb [facility] Diagnosis Adjustment disorder with depressed mood- Primary Complex regional pain syndrome type II of right lower limb Chronic toe pain, right foot Class 3 severe obesity with serious comorbidity and body mass index (BMI) of 40.0 to 44.9 in adult, unspecified obesity type (HCC) [facility] Diagnosis Adjustment disorder with depressed mood- Primary Complex regional pain syndrome type II of right lower limb Chronic toe pain, right foot [facility] Diagnosis Adjustment disorder with depressed mood- Primary Complex regional pain syndrome type II of right lower limb Chronic toe pain, right foot documented [facility]* Diagnosis Complex regional pain syndrome type II of right lower limb [facility]* Diagnosis Acquired deformity of right toe- Primary Diabetes 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, 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 fpc insulin use (CMS/HCC) documented in this encounter [facility] HealthcareEvaluation note* Diagnosis Internal derangement of left shoulder- Primary Arthritis of left acromioclavicular joint Complete tear of left rotator cuff, 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 traumatic Left shoulder pain, unspecified chronicity documented in this encounter [facility] HealthcareEvaluation note* Diagnosis Acquired deformity of right toe- Primary Diabetes 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, 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 terminal carman insulin use (CMS/HCC) Amputation of right great toe (CMS/HCC) documented in this encounter [facility] HealthcareEvaluation note* Diagnosis Amputation of toe of right foot (CMS/HCC)- Primary Diabetes 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, 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 fpc insulin use (CMS/HCC) Pain due to onychomycosis of toenails of both feet documented in this encounter [facility] HealthcareEvaluation note* Diagnosis Internal derangement of left shoulder- Primary Complete tear of left rotator cuff, 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 traumatic documented in this encounter [facility] HealthcareEvaluation note* Diagnosis Complex regional pain syndrome type II of right lower limb Chronic toe pain, right foot Class 3 severe obesity with serious comorbidity and body mass index (BMI) of 40.0 to 44.9 in adult, unspecified obesity type (HCC) [facility]* Diagnosis Right foot pain- Primary Pain [...] first metatarsal 2-8-19 Hospitalization History see above [facility] Other History general Narrative - Reported* Type [...] Foot Surgery 10/27/2021 Hospitalization History see above [facility] Other History general Narrative - Reported* Type [...] Foot Surgery 10/27/2021 Hospitalization History see above [facility] Other Reason for visit Narrative* Consultation (Routine) - Closed Specialty Diagnoses / Procedures Referred By Contpaddy t Referred To Contact Neurology Diagnoses Neuropathic pain, MRI / labs @ [facility] , ref by Dr Hickman Procedures [place] OFFICE/OUTPATIENT NEW LOW MDM 30 MINUTES NEURO NEW PATIENT Haider Hickman MD [address] [place] [address] Phone: tel: fax: Matthew May DO [address] [place], [place] [id number] Phone: tel: fax: Referral ID Status Reason Start Date Expiration Date V isits Requested Visits Authorized [id number] Closed Consult and Treat 08/22/2024 02/18/2025 1 1 [facility] Healthcare Summary Purpose Family History No Family [...] (HCC) Procedures PROVIDER ORDERED FOLLOW UP OFFICE/OUTPATIENT [facility] 60 MINUTES Chiqui Robles MD [address] [place] [address] Referral ID Status Reason Start Date Expiration Date Visits Requested Visits Authorized [id number] Authorized PCP Requested Referral 06/25/2024 04/24/2025 1 1 Specialty Diagnoses / Procedures Referred By Contac t Referred To Contact Infectious Diseases Diagnoses Dermatitis of lower extremity Procedures CONSULT TO INFECTIOUS DISEASES OFFICE/OUTPATIENT [facility] 60 MINUTES Herberth Araujo MD, PhD [address] [place] [address] Referral ID Status Reason Start Date Expiration Date Visits Requested Visits Authorized [id number] Authorized PCP Requested Referral 02/29/2024 02/28/2025 1 1 Specialty Diagnoses / Procedures Referred By Contac t Referred To Contact Podiatry Diagnoses Chronic toe pain, right foot Painful diabetic neuropathy (HCC) Procedures CONSULT TO PODIATRY OFFICE/OUTPATIENT [facility] 60 MINUTES Francoise Singletary MD [address] [place] [address] Referral ID Status Reason Start Date Expiration Date Visits Requested Visits Authorized [id number] Authorized PCP Requested Referral 02/05/2024 02/04/2025 1 1 Specialty Diagnoses / Procedures Referred By Contac t Referred To Contact Neurology Diagnoses Chronic toe pain, right foot Painful diabetic neuropathy (HCC) Procedures CONSULT TO NEUROLOGY OFFICE/OUTPATIENT [facility] 60 MINUTES Francoise Singletary MD [address] [place] [address] Referral ID Status Reason Start Date Expiration Date Visits Requested Visits Authorized [id number] Authorized PCP Requested Referral 02/05/2024 02/04/2025 1 1 Specialty Diagnoses / Procedures Referred By Contac t Referred To Contact [facility] [place] Diagnoses Chronic toe pain, right foot Painful diabetic neuropathy (HCC) Procedures CONSULT TO [facility]) OFFICE/OUTPATIENT [facility] 60 MINUTES Francoise Singletary MD [address] [place] [address] Referral ID Status Reason Start Date Expiration Date Visits Requested Visits Authorized [id number] Pending Review PCP Requested Referral 02/05/2024 02/04/2025 1 1 Additional Source Comments REASON FOR VISIT (unrecogniz ed section and content) Reason Comments Consult Rt foot Reason Comments Established Patient Medication Update Reason Comments Nurse Triage Call Reason Comments New Patient Specialty Diagnoses / Procedures Referred By Contac t Referred To Contact [facility] [place] Diagnoses Complex regional pain syndrome type II of right lower limb Chronic toe pain, right foot Class 3 severe obesity with serious comorbidity and body mass index (BMI) of 40.0 to 44.9 in adult, unspecified obesity type (HCC) Procedures [facility] ([facility]) OFFICE/OUTPATIENT [facility] 60 MINUTES Herberth Araujo MD, PhD [address] [place] [address] Referral ID Status Reason Start Date Expiration Date Visits Requested Visits Authorized [id number] Pending Review PCP Requested Referral 04/03/2024 04/03/2025 [...] Referred By Segundo joshua Referred To Contact Orthopaedic Surgery Diagnoses Complete tear of left rotator cuff, 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 traumatic Arlen Sanchez, DO [address] [facility] [address] [place] [address] Phone: tel: fax: Khai Heard, DO [address] [place] [address] Phone: tel: fax: Referral ID Status Reason Start Date Expiration Date V isits Requested Visits Authorized [id number] Closed Consult and Treat 07/23/2024 01/19/2025 1 [...] (HCC) Procedures PROVIDER ORDERED FOLLOW UP OFFICE/OUTPATIENT [facility] 60 MINUTES Chiqui Robles MD [address] [place] [address] Referral ID Status Reason Start Date Expiration Date V isits Requested Visits Authorized [id number] Closed PCP Requested Referral 06/25/2024 04/24/2025 1 [...] and content) DATE CREATED AUTHOR 02/20/2023 [facility] DATE CREATED AUTHOR AUTHOR'S ORGANIZ ATION 11/22/2023 [facility] DATE CREATED AUTHOR AUTHOR'S ORGANIZ ATION 03/09/2024 [facility] DATE CREATED AUTHOR AUTHOR'S ORGANIZ ATION 03/16/2024 [facility] DATE CREATED AUTHOR AUTHOR'S ORGANIZ ATION 07/19/2024 [facility] DATE CREATED AUTHOR AUTHOR'S ORGANIZ ATION 08/16/2024 [facility] DATE CREATED AUTHOR AUTHOR'S ORGANIZ ATION 08/28/2024 [facility] DATE CREATED AUTHOR AUTHOR'S ORGANIZ ATION 09/01/2024 [facility] DATE CREATED AUTHOR AUTHOR'S ORGANIZ ATION 09/06/2024 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 Start Date End Date Miguelangel Mac MD [address] [place] [address] Referring Pain Management 01/29/24 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 Start Date End Date Miguelangel Mac MD [address] [place] [address] Referring Pain Management 01/29/24 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 Start Date End Date Miguelangel Mac MD [address] [place] [address], [place] [address] Referring Pain Management 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/24 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 Start Date End Date Haider Hickman MD [address] [place] [phone] PCP - General Family Medicine 03/26/24 Miguelangel Mca MD [address] [place] [address] Referring Pain Management 01/29/24 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 Start Date End Date Haider Hickman MD [address] [place] [address] PCP - General Family Medicine 03/26/24 Miguelangel Mac MD [address] [place] [address] Referring Pain Management 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/24 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 Start Date End Date Haider Hickman MD [address] [place] [address] PCP - General Family Medicine 03/26/24 Miguelangel Mac MD [address] [place] [address] Referring Pain Management 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/24 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 Start Date End Date Haider Hickman MD [address] [place] [address] PCP - General Family Medicine 03/26/24 Miguelangel Mac MD [address] [place] [address] Referring Pain Management 01/29/24 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 Start Date End Date Haider Hickman MD [address] [place] [phone] PCP - General Family Medicine 03/26/24 Miguelangel Mac MD [address] [place] [address] Referring Pain Management 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/24 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 Start Date End Date Haider Hickman MD [address] [place] [phone] PCP - General Family Medicine 03/26/24 Miguelangel Mac MD [address] [place] [address] Referring Pain Management 01/29/24 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 Start Date End Date Haider Hickman MD [address] [facility] [place] [address] PCP - General Family Medicine 05/09/24 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 Start Date End Date Haider Hickman MD [address] [facility] [place] [address] PCP - General Family Medicine 05/09/24 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 Start Date End Date Haider Hickman MD [address] [facility] [place] [address] PCP - General Family Medicine 05/09/24 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 Start Date End Date Haider Hickman MD [address] [facility]], [place] [address] PCP - General Family Medicine 05/09/24 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 Start Date End Date Haider Hickman MD [address] [facility] [place] [address] PCP - General Family Medicine 05/09/24 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 Start Date End Date Haider Hickman MD [address] [facility] [place] [address] PCP - General Family Medicine 03/26/24 Miguelangel Mac MD [address] [place] [address] [address] [place] [address] Referring Pain Management 01/29/24 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 Start Date End Date Haider Hickman MD [address] [facility]], [place] [address] PCP - General Family Medicine 05/09/24 Goals [...] any alcohol or drug abuse patient.[facility] Center[facility] the event this information is protected by the Federal Confidentiality of Alcohol and Drug Abuse Patient Records regulations: The Federal rules restrict any use of the information to criminally investigate or prosecute any alcohol or drug abuse patient.[facility] CenterIn the event this information is protected by the Federal Confidentiality of Alcohol and Drug Abuse Patient Records regulations: The Federal rules restrict any use of the information to criminally investigate or prosecute any alcohol or drug abuse patient.[facility] CenterIn the event this information is protected by the Federal Confidentiality of Alcohol and Drug Abuse Patient Records regulations: The Federal rules restrict any use of the information to criminally investigate or prosecute any alcohol or drug abuse patient.[facility] CenterIn the event this information is protected by the Federal Confidentiality of Alcohol and Drug Abuse Patient Records regulations: The Federal rules restrict any use of the information to criminally investigate or prosecute any alcohol or drug abuse patient.[facility] CenterIn the event this information is protected by the Federal Confidentiality of Alcohol and Drug Abuse Patient Records regulations: The Federal rules restrict any use of the information to criminally investigate or prosecute any alcohol or drug abuse patient.[facility] CenterIn the event this information is protected by the Federal Confidentiality of Alcohol and Drug Abuse Patient Records regulations: The Federal rules restrict any use of the information to criminally investigate or prosecute any alcohol or drug abuse patient.[facility] CenterIn the event this information is protected by the Federal Confidentiality of Alcohol and Drug Abuse Patient Records regulations: The Federal rules restrict any use of the information to criminally investigate or prosecute any alcohol or drug abuse patient.[facility] CenterIn the event this information is protected by the Federal Confidentiality of Alcohol and Drug Abuse Patient Records regulations: The Federal rules restrict any use of the information to criminally investigate or prosecute any alcohol or drug abuse patient.[facility] CenterIn the event this information is protected by the Federal Confidentiality of Alcohol and Drug Abuse Patient Records regulations: The Federal rules restrict any use of the information to criminally investigate or prosecute any alcohol or drug abuse patient.[facility] CenterIn the event this information is protected by the Federal Confidentiality of Alcohol and Drug Abuse Patient Records regulations: The Federal rules restrict any use of the information to criminally investigate or prosecute any alcohol or drug abuse patient.[facility] CenterIn the event this information is protected by the Federal Confidentiality of Alcohol and Drug Abuse Patient Records regulations: The Federal rules restrict any use of the information to criminally investigate or prosecute any alcohol or drug abuse patient.[facility] FOR RECORDS PERTAINING TO PATIENTS [...] BE BASED ON THE PRIMARY CLINICAL RECORDS. [facility] [employer] [facility]. provides no warranty or guarantee of the accuracy or completeness of information in this document.
[2024-09-09 08:55] LABS: Glucometer 94 mg/dL (74-106)
[2024-09-09 09:20] VITALS: PULSE 57; O2SAT 98
[2024-09-09] MEDS: 0.9 % SODIUM CHLORIDE 10 ML SYRINGE - SALINE FLUSH INJ (09:21)
[2024-09-09] MEDS: IOHEXOL 240 MG/ML - 10 ML VIAL 24 MG INJ (09:21)
[2024-09-09] MEDS: BUPIVACAINE HCL 0.25% PF 25 MG/10 ML VIAL INJ (09:21)
[2024-09-09] MEDS: TRIAMCINOLONE ACETONIDE 40 MG/ML VIAL 80 MG INJ (09:22)
[2024-09-09] MEDS: LIDOCAINE HCL 2% 400 MG/20 ML MDV 3 ML INJ (09:22)
[2024-09-09 09:23] VITALS: BP 142/70; BP 150/70; PULSE 54; O2SAT 98
--- NOTE | 2024-09-09 09:23 | P.ON_ITS ---
Date of procedure: 09/09/24 Pre-op diagnosis: Pain due to lumbar radiculopathy Post-op diagnosis: same as pre-op Procedure: Procedure: Left L5 selective nerve root block Medications: Bupivacaine 0.25% 2cc, lidocaine 2% 1cc, kenalog 80mg The patient was seen and examined in the preoperative holding area.? Informed consent was obtained and placed on the chart.? Patient was brought to the medical procedure unit and placed in the prone position where a timeout was completed verifying the correct patient, procedure site, position, and planned special equipment using sterile aseptic technique.? Under direct fluoroscopic visualization a 25-gauge Quincke tipped spinal needle was advanced to the designated neural foramen where contrast dye was injected to show adequate spread.? The needle was inserted at level left L5-S1. There was no evidence of vascular or adverse uptake.? Epidural spread was appreciated.? The above- mentioned injectate was then placed in a 1.5 mL aliquot preceded by negative aspiration.? The needle was removed.? The surgery site was covered.? Patient was taken to the postprocedural recovery area and monitored for an appropriate length of time before found suitable for discharge in the accompaniment of a responsible adult. Anesthesia: Local Surgeon: Miguelangel Mac Pathology: none sent Condition: stable Disposition: no change
--- NOTE | 2024-09-09 11:11 | PC.NURSE ---
Post procedure upon standing pt had weakness to left leg and was unable to ambulate without assistance. Pt was placed in a wheelchair and then assisted with ambulation until he could safely walk. Pt taken to car in wheelchair and will use walker at home today for extra stability.
== END 2024-09-09 11:15 | disposition home or self-care (01) ==
LOC: SURGOUT 08:24
PROVIDERS: PCP Family Medicine; Visit Provider Anesthesiology
DX: M54.16 Radiculopathy, lumbar region (principal); E11.9 Type 2 diabetes mellitus without complications; Z79.84 Long term (current) use of oral hypoglycemic drugs
CPT/HCPCS: 36415; 64483; 82948; J0665; J3301; Q9966

== ENCOUNTER 2024-09-19 08:53 | Outpatient (OUT) | payer MEDICARE, OTHER, SELFPAY ==
--- NOTE | 2024-09-19 09:21 | PM.CN ---
Consult Note: HPI Data of Consult Patient: known to practice within the last 3 years Consult date: 09/02/24 Requesting Physician: Anastasia Donato NP Primary Care Provider: HAIDER HICKMAN Consult Narrative Reason for consult: right foot pain Narrative: 74yom who presents for assessment. continues to have pain into right foot. was evaluated at [facility], where he underwent DRG stim trial, but were unable to place leads. recently saw neurologist, who recommended right L5-S1 tfesi. continues in a series of provider directed home exercises >6 weeks, without lasting benefit. uses tizanidine and lyrica. denies adverse med side effects. pt underwent left L5-S1 TFESI with no improvement. cc:: CC: Anastasia Donato NP Review of Systems ROS Status of ROS 10 or more systems reviewed and unremarkable except as noted in history and below [facility] Medical History H/O nephrolithotomy with removal of calculi ?Z98.890 - Other specified postprocedural states (ICD-10) ?Z87.442 - Personal history of urinary calculi (ICD-10) Osteoarthritis ?M19.90 - Unspecified osteoarthritis, unspecified site (ICD-10) Amputation of toe ?S98.139A - Complete traumatic amputation of one unspecified lesser toe, initial encounter (ICD-10) H/O renal calculi ?Z87.442 - Personal history of urinary calculi (ICD-10) Obstructive sleep apnea on CPAP ?G47.33 - Obstructive sleep apnea (adult) (pediatric) (ICD-10) Neck pain ?M54.2 - Cervicalgia (ICD-10) Low back pain ?M54.50 - Low back pain, unspecified (ICD-10) Obesity ?E66.9 - Obesity, unspecified (ICD-10) Diabetes ?E11.9 - Type 2 diabetes mellitus without complications (ICD-10) Enlarged prostate ?N40.0 - Benign prostatic hyperplasia without lower urinary tract symptoms (ICD-10) Hypertension ?I10 - Essential (primary) hypertension (ICD-10) Surgical History H/O heart artery stent ?Z95.5 - Presence of coronary angioplasty implant and graft (ICD-10) Meds Home Medications and Allergies Home Medications ?Medication ?Instructions ?Recorded ?Confirmed ?Type acarbose 50 mg tablet 50 mg PO TID 05/24/23 09/09/24 History aspirin 81 mg tablet,delayed 81 mg PO DAILY 05/24/23 09/09/24 History release (Adult Aspirin Regimen) bupropion HCl 150 mg tablet,12 hr 150 mg PO DAILY 05/24/23 09/09/24 History sustained-release losartan 50 mg tablet 75 mg PO DAILY 05/24/23 09/09/24 History metoprolol tartrate 50 mg tablet 50 mg PO BID 05/24/23 09/09/24 History (Lopressor) nitroglycerin 0.4 mg sublingual 0.4 mg sublingual Q5M 05/24/23 09/09/24 History tablet pioglitazone 30 mg tablet 60 mg PO DAILY 05/24/23 09/09/24 History simvastatin 40 mg tablet 40 mg PO DAILY 05/24/23 09/09/24 History sitagliptin phosphate 50 mg tablet 50 mg PO DAILY 05/24/23 09/09/24 History (Januvia) sodium bicarbonate 650 mg tablet 650 mg PO TID PRN stomach upset 05/24/23 09/09/24 History tizanidine 4 mg tablet 4 mg PO DAILY PRN muscle spasticity 05/24/23 09/09/24 History venlafaxine 37.5 mg 37.5 mg PO BID 05/24/23 09/09/24 History capsule,extended release 24 hr acetaminophen 300 mg-codeine 30 mg 1 tab PO Q6H PRN pain 5 days #20 05/25/24 09/09/24 Rx tablet tabs pregabalin 75 mg capsule mg QID 09/03/24 History Allergies Allergy/AdvReac Type Severity Reaction Status Date / Time cefuroxime Allergy Unknown Unknown Verified 09/09/24 09:08 diflunisal (From Dolobid) Allergy Unknown Unknown Verified 09/09/24 09:08 dulaglutide (From Trulicity) Allergy Unknown Unknown Verified 09/09/24 09:08 liraglutide (From Victoza) Allergy Unknown Unknown Verified 09/09/24 09:08 rofecoxib (From Vioxx) Allergy Unknown Unknown Verified 09/09/24 09:08 celecoxib (From Celebrex) Allergy Unknown Verified 09/09/24 09:08 metformin Allergy Unknown Verified 09/09/24 09:08 naproxen (From Naprosyn) Allergy Unknown Verified 09/09/24 09:08 NSAIDS (Non-Steroidal Allergy Unknown Verified 09/09/24 09:08 Anti-Inflamma sulindac (From Clinoril) Allergy Unknown Verified 09/09/24 09:08 axetil Allergy Unknown Unknown Uncoded 09/09/24 09:08 Exam Narrative Exam Narrative: Psych-alert and oriented x 3. Attentive and appropriate, constitutionally normal, displays normal mood and affect per situation. There are no obvious deficits in memory, reasoning, or intellect.? Skin-no obvious rashes, bruising, erythema noted to the patient's area of pain.? Extremities- extremities are warm with minimal edema and palpable pulses. Lumbar-tenderness to palpation noted in the lumbar spine and paraspinal musculature. Pain is not elicited with flexion, extension, and lateral rotation of the lumbar spine. Range of motion is not diminished with these motions. Facet loading maneuvers are negative.? Strength-noted to be unremarkable Sensory-no notable sensory deficits in the bilateral lower extremities to touch or pinprick in all dermatomal distributions with the exception to decreased sensation to the right L5, S1 dermatomal distribution Coordination remains intact.? Gait remains non-antalgic Assessment and Plan Assessment and Plan (1) Pain, foot, right, chronic: (2) Lumbar radiculopathy: Plan increase pregabalin 100mg QID increase tizanidine 4-8mg TID PRN pain/spasms f/u 6 weeks to assess medication changes
== END 2024-09-19 08:54 | disposition home or self-care (01) ==
LOC: PM 08:53
PROVIDERS: PCP Family Medicine; Visit Provider Nurse Practitioner
DX: M79.671 Pain in right foot (principal); M54.16 Radiculopathy, lumbar region
CPT/HCPCS: G0463

== ENCOUNTER 2024-09-26 08:51 | Outpatient (RCR) | payer MEDICARE, OTHER, SELFPAY | END 2024-10-08 14:35 | disposition home or self-care (01) | LOC: PT 08:51 | PROVIDERS: PCP Family Medicine; Visit Provider Family Medicine | DX: R26.89 Other abnormalities of gait and mobility (principal); M79.671 Pain in right foot; Z68.41 Body mass index [BMI] 40.0-44.9, adult; E66.01 Morbid (severe) obesity due to excess calories; Z78.9 Other specified health status | CPT/HCPCS: 97110; 97112; 97161 ==

== ENCOUNTER 2024-10-09 08:28 | Outpatient (RCR) | payer MEDICARE, OTHER, SELFPAY | END 2024-12-04 14:53 | disposition home or self-care (01) | LOC: PT 08:28 | PROVIDERS: PCP Family Medicine; Visit Provider Family Medicine | DX: R26.89 Other abnormalities of gait and mobility (principal); M79.671 Pain in right foot; Z68.41 Body mass index [BMI] 40.0-44.9, adult; E66.01 Morbid (severe) obesity due to excess calories; Z78.9 Other specified health status | CPT/HCPCS: 97110; 97112 ==

== ENCOUNTER 2024-10-22 08:30 | Outpatient (OUT) | payer MEDICARE, OTHER, SELFPAY ==
--- NOTE | 2024-10-22 08:34 | US_ITS ---
[address] [address] Patient Name: LUISITO WHITMORE MRN: [id number] date: 1950 Sex: M Assigned Patient Location: [place] Current Patient Location: [place] Accession/Order Number: [id number] Exam Date: 10/22/2024 08:35 Report Date: 10/22/2024 10:27 At the request of: KENDRA WHITLOCK Procedure: US right upper quadrant EXAMINATION: US right upper quadrant HISTORY: k76.0 Fatty liver ; right upper quadrant pain COMPARISON: No relevant comparison available. TECHNIQUE: Transabdominal evaluation of the right upper quadrant. FINDINGS: LIVER: Fatty infiltration of the liver. Color Doppler demonstrates patent hepatic veins. PORTAL VEIN: Duplex Doppler demonstrates normal hepatopetal flow pattern with flow velocity averaging 35 cm/s. GALLBLADDER: 5 mm mobile stone within gallbladder. No gallbladder wall thickening or free fluid. Negative sonographic Barbosa's sign. BILIARY: No abnormal dilation or stones. Common bile duct diameter is within normal limits. PANCREAS: Limited evaluation. No visible mass, abnormal atrophy, or duct dilation. KIDNEY: No hydronephrosis. No visible mass or stones. Size: 12.4 x 6.0 x 5.5 cm US/US right upper quadrant IMPRESSION: 1. Cholelithiasis. 2. Mild fatty infiltration of liver. 3. No acute or specific findings to account for patient's symptoms. Electronically authenticated by: BRITTNY MORALES Date: 10/22/2024 10:27
== END 2024-10-22 08:31 | disposition home or self-care (01) ==
LOC: US 08:30
PROVIDERS: PCP Family Medicine; Visit Provider Nurse Practitioner
DX: K76.0 Fatty (change of) liver, not elsewhere classified (principal)
CPT/HCPCS: 76705

== ENCOUNTER 2024-10-24 10:37 | Outpatient (OUT) | payer MEDICARE, OTHER, SELFPAY ==
--- OUTSIDE RECORDS SUMMARY | 2024-10-24 10:48 | XMS_ITS | CCD ---
Author Organization [facility] Care Team Providers Care Child Development Teacher Name Role Phone Claudioaminta Morgan Unavailable Aldo [...] Soni Unavailable MD Daniel Everett Attending Provider [phone] MD Scarlet Johnson Primary Care Provider MD Eligio Soni Attending Provider [phone] MD Scarlet Johnson Primary Care Provider MD [...] Admitting Unavailable COOK, Araceli P Attending Unavailable Araceli BERMUDEZ Attending Unavailable Araceli BERMUDEZ Attending Unavailable Araceli BERMUDEZ Attending Unavailable Haider Hickman Attending Unavailable Haider Hickman Attending Unavailable Haider Hickman MD Primary Care Provider MORGAN TRINIDAD Attending Unavailable HAIDER HICKMAN Primary Care Unavailable MIJATOVIC, DESIMIR Referring Unavailable HAIDER HICKMAN Primary Care Unavailable MEKHERBERTH MEYERS A Referring Unavailable MIJATOVIC, DESIMIR Attending Unavailable HERBERTH ARAUJO Attending Unavailable FRANCOISE SINGLETARY Attending Unavailable HAIDER HICKMAN Primary Care Unavailable MIJATOVIC, DESIMIR Referring Unavailable MIJATOVIC, DESIMIR Attending Unavailable HERBERTH ARAUJO A Attending Unavailable HERBERTH ARAUJO A Admitting Unavailable MORGAN TRINIDAD Referring Unavailable HAIDER HICKMAN Primary Care Unavailable BRITNEY HYDE Attending Unavailable ESSENCE WASHBURN Attending Unavailable ELAINE FISHER Attending Unavailable MARY APARICIO Attending Unavailable Bubba SCHUSTER, Andrius Louis Attending Unavailable Gianshuraaron SCHUSTER, Andrius Missy Attending Unavailable Bubba SCHUSTER, Andrius Vytsandy Attending Unavailable Bubba SCHUSTER, Andrius Vytsandy Attending Unavailable Bubba SCHUSTER, Andrius Louis Attending Unavailable Haider Hickman Attending Unavailable DAVID ACOSTA Attending Unavailable Haider Hickman Attending Unavailable Haider Hickman Attending Unavailable Haider Hickman Attending Unavailable Haider Hickman Attending Unavailable Haider Hickman Attending Unavailable Haider Hickman Referring Unavailable Haider Hickman Attending Unavailable Haider Hickman Admitting Unavailable Dolce, Kajal R Attending Unavailable Dolce, Kjaal R Attending Unavailable Dolce, Kajal R Attending Unavailable REFERRAL, SELF Referring Unavailable Araceli BERMUDEZ Attending Unavailable Haider Hickman Attending Unavailable Haider Hickman Attending Unavailable BASSAM AGUILAR Attending Unavailable CHELLE BRANDON Attending Unavailable CHELLE BRANDON Referring Unavailable MACY MCPHERSON Attending Unavailable BASSAM AGUILAR Attending Unavailable BASSAM AGUILAR Attending Unavailable CHELLE BRANDON Attending Unavailable APLCHELLE WYATT Attending Unavailable BASSAM AGUILAR Attending Unavailable DOLKILO, SHYAM Stoner Attending Unavailable SHYAM CAM Referring Unavailable KAJAL CAM Attending Unavailable CHELLE BRANDON Attending Unavailable DOLKILO, SHYAM Stoner Attending Unavailable ARLEN SANCHEZ Attending Unavailable DOLSHYAM BOATENG Attending Unavailable DOLKILO, SHYAM Stoner Attending Unavailable KHAI HEARD Attending Unavailable ARLEN SANCHEZ Referring Unavailable BASSAM AGUILAR Attending Unavailable MATTHEW MAY Attending Unavailable HAIDER HICKMAN Referring Unavailable BASSAM AGUILAR Attending Unavailable Allergies Allergy Classification Reported Allergen(s) Allergy Type Date of Onset Reaction(s) Facility (20 sources) Cefuroxime; Translations: [cefuroxime] Drug Allergy 06-09-20 Unknown [facility] (20 sources) celecoxib; Translations: [CELECOXIB] Drug Allergy 06-09-20 Unknown [facility] (20 sources) Diflunisal; Translations: [DIFLUNISAL] Drug Allergy 06-09-20 21 Unknown [facility] (20 sources) dulaglutide Drug Allergy 09-11-20 23 Unknown, g/i [facility] (20 sources) Ibuprofen Drug Allergy Unknown [facility] (20 sources) liraglutide; Translations: [LIRAGLUTIDE] Drug Allergy 11-25-19 23 stomach upset [facility] (20 sources) metFORMIN; Translations: [metFORMIN] Drug Allergy 06-09-20 21 stomach upset [facility] (20 sources) Naproxen; Translations: [NAPROXEN] Drug Allergy 06-09-20 21 Unknown [facility] (20 sources) Sulindac; Translations: [Clinoril] Drug Allergy 07-10-20 15 Unknown [facility] Repository (1 source) Cefuroxime Drug Allergy 07-13-20 16 [facility] (4 sources) celecoxib; Translations: [CeleBREX] Drug Allergy 07-10-20 15 [facility] (4 sources) liraglutide; Translations: [Victoza] Drug Allergy [facility] (1 source) metFORMIN Drug Allergy 06-15-20 17 [facility] (4 sources) Naproxen; Translations: [Naprosyn] Drug Allergy 07-10-20 15 [facility] (3 sources) NSAIDs; Translations: [NSAIDS (NON-STEROIDAL ANTI-INFLAMMATORY DRUG)] Drug allergy (disorder) 07-10-20 [facility] (4 sources) Povidone-Iodine; Translations: [Dolobid] Drug Allergy 07-10-20 15 [facility] (20 sources) Cephalosporins (Antibiotic); Translations: [Cephalosporins] Propensity to adverse reactions 05-29-20 Unknown Reaction [facility] (20 sources) Ibuprofen; Translations: [ibuprofen] Drug Allergy 09-11-20 Unknown [facility] (20 sources) Sulindac; Translations: [sulindac] Drug Allergy 06-09-20 Unknown [facility] (1 source) Cefuroxime Drug Allergy 09-11-20 [facility] (1 source) celecoxib Drug Allergy 09-11-20 [facility] (1 source) Diflunisal Drug Allergy 09-11-20 [facility] (1 source) dulaglutide Drug Allergy 09-11-20 [facility] (1 source) liraglutide Drug Allergy 09-11-20 [facility] (1 source) metFORMIN Drug Allergy 09-11-20 [facility] (1 source) Naproxen Drug Allergy 09-11-20 [facility] (12 sources) Non-steroidal anti-inflammatory agent Drug Intolerance 02-05-20 24 GI Upset [facility] (3 sources) Cefuroxime; Translations: [Cefuroxime Axetil] Drug Allergy [facility] Repository (3 sources) dulaglutide; Translations: [Trulicity] Drug Allergy [facility] (3 sources) Niacin; Translations: [niacin] Drug Allergy [facility] (20 sources) NSAIDs; Translations: [NSAIDs] Propensity to adverse reactions (disorder) 07-23-20 Other [facility] Repository (3 sources) rofecoxib; Translations: [Vioxx] Drug Allergy [facility] (20 sources) celecoxib Drug Allergy 05-18-20 Unknown [facility] (20 sources) Diflunisal Drug Allergy 06-09-20 Unknown [facility] (20 sources) dulaglutide Drug Allergy 05-18-20 23 Unknown [facility] (20 sources) liraglutide Drug Allergy 05-18-20 Unknown [facility] (20 sources) metFORMIN Drug Allergy 05-18-20 Unknown [facility] (20 sources) rofecoxib; Translations: [ROFECOXIB] Drug Allergy 06-09-20 Unknown [facility] Medications Current Medications Medication [...] / codeine phosphate 30 mg oral tablet (20 sources) Opioid Agonist Start: 05-25-2024 acetaminophen-codeine (Tylenol [...] iron-containing products clindamycin 300 mg oral capsule (20 sources) Lincosamide Antibacterial Start: 05-22-2024 take 1 [...] May, Active LORazepam 0.5 mg oral tablet (19 sources) Benzodiazepine Start: 07-10-20 take 1 tablet [...] Start: 03-12-2023 take 2 tablets by mo [facility] at bedtime losartan (Cozaar) 50 MG tablet [...] tablet Orally Once a day [facility] memantine hydrochloride 10 mg oral tablet (20 sources) C-pytwle-K-aspartate Receptor Antagonist Start: 05-31-2024 End: 07-22-2024 take 1 tablet by mouth once daily memantine (Namenda) 10 MG tablet Take 10 mg by mouth Daily 05/31/2024 Active Start: 04-24-2024 End: 06-12-2024 take 1 tablet by mouth once daily [...] DOSES NEEDED FOR CHEST PAIN 09/20/2023 Active [place] 2-Lln-Eij-Fish Oil (Fish Oil) 1,000 mg (120 mg-180 mg) Capsule (2 sources) Start: 018 [place] 0-Pga-Wrv-Fish Oil (Fish Oil) 1,000 mg (120 mg-180 [...] day(s) Active pregabalin 75 mg oral capsule (16 sources) Start: 08-01-2024 take 1 capsule by [...] (20 sources) Central alpha-2 Adrenergic Agonist Start: take 1 tablet by mouth at bedtime tiZANidine (Zanaflex) 4 MG tablet Take 4 mg by mouth at bedtime. 04/15/2023 Active take 1 tablet by mouth once zheng y tiZANidine HCl 4 MG 1 tab Orally daily Active tiZANidine HCl A ctive traMADol hydrochloride 50 mg oral tablet (20 sources) Opioid Agonist Start: 06-19-2024 take 1 tablet by mouth every six hours for pain traMADol (Ultram) 50 MG tablet Indications: Pain Take 1 tablet (50 mg) by mouth every 6 (six) hours if needed for severe pain or moderate pain 20 tablet 06/19/2024 Active Start: 05-29-2018 Tramadol Activ e TABLET May 28, 2018 11:00pm triamcinolone acetonide 0.001 mg/mg topical ointment (20 sources) Corticosteroid Start: 01-22-2024 triamcinolone (Kenalog) 0.1 [...] Orally once a day Active FreeStyle Baylee Garfield - (7 sources) FreeStyle Baylee Garfield - use with baylee sensor SQ daily for 365 days has but not using Not-Taking FreeStyle Baylee Sensor Syste m - (7 sources) FreeStyle Baylee Sensor System - use with baylee reader SQ change every 10 days for 90 days has but not usint Not-Taking 1 ml methylPREDNISolone acetate 40 mg/ml injection (4 sources) Corticosteroid Start: 06-12-2024 End: 06-12-2024 methylPREDNISolone acetate (DEPO-Medrol) injection 40 mg Start: 06-12-2024 End: 06-12-2024 40 mg, Intra-articular, Once PRN Procedure, Starting on Mon06/12/24 at 0939, For 1 dose Problems Active Problems Problem Classification Problem Date Documented Da te Episodic/Chronic Acquired foot deformities (13 sources) Acquired deformity of toe of right foot; Translations: [Acquired deformities of toe(s), unspecified, right foot] 07-24-2024 Episodic Adjustment disorders (3 sources) Adjustment disorder with depressed mood; Translations: [Adjustment disorder with depressed mood] 04-24-2024 Chronic Administrative/social admission (6 sources) Dietary counseling and surveillance Onset: 2 Resolved: 2 Episodic Allergic reactions (1 source) Eczema of lower limb; Translations: [Dermatitis, unspecified] 02-29-2024 Episodic Chronic ulcer of skin (2 sources) Non-pressure chronic ulcer of other part of right lower leg with fat layer exposed; Translations: [Ulcer of other part of lower limb] 06-25-2024 Chronic Congestive heart failure; nonhypertensive (1 source) Unspecified systolic (congestive) heart failure; Translations: [UNSPECIFIED SYSTOLIC HEART FAILURE] Onset: 3 Chronic Coronary atherosclerosis and other heart disease (20 sources) Coronary arteriosclerosis; Translations: [Atherosclerotic heart disease of [place] coronary artery without angina pectoris] Onset: 9 Chronic Diabetes mellitus with complications (20 sources) Hyperglycemia due to type 2 diabetes mellitus; Translations: [Type 2 diabetes mellitus with hyperglycemia] Onset: 2 Resolved: 2 Chronic Diabetes mellitus without complication (20 sources) Type 2 diabetes mellitus; Translations: [Type 2 diabetes mellitus without complications] Onset: 3 05-09-2024 Chronic Disorders of lipid metabolism (20 sources) Hyperlipidemia; Translations: [Hyperlipidemia, unspecified] Onset: 3 Resolved: 2 Chronic E Codes: Natural/environment (1 source) Exposure to other specified factors, initial encounter; Translations: [EXPOSURE OTHER SPEC FACTORS INITIAL] Onset: 3 Episodic Esophageal disorders (20 sources) Gastroesophageal reflux disease; Translations: [Gastro-esophageal reflux [...] without heart failure] Onset: 4 Chronic Mycoses (2 sources) Pain in toe; Translations: [Tinea unguium] 08-08-2024 Episodic Nonspecific chest pain (1 source) Precordial pain; Translations: [PRECORDIAL PAIN] Onset: 3 Episodic Nutritional deficiencies (20 sources) Vitamin D deficiency; Translations: [Vitamin D deficiency, unspecified] Chronic Open wounds of extremities (5 sources) Amputated big toe; Translations: [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, initial encounter] 07-31-2024 Chronic Osteoarthritis (10 sources) Arthritis of left acromioclavicular joint; Translations: [Primary osteoarthritis, left shoulder] 07-23-2024 Chronic Other aftercare (1 source) skilled nursing (current) use of aspirin; Translations: [DRUM SEALER CURRENT USE OF ASPIRIN] Onset: 3 Episodic Other aftercare (1 source) Other half-way (current) drug therapy; Translations: [OTH DRUM SEALER CURRENT DRUG THERAPY] Onset: 3 Episodic Other aftercare (6 sources) Long-term current use of insulin; Translations: [intermission coordinator (current) use of insulin] Episodic Other aftercare (1 source) skilled nursing (current) use of insulin Episodic Other connective [...] NOT ELSEWHERE CLASSIFIED] Onset: 3 Chronic Other diseases of veins and lymphatics (3 sources) Vascular insufficiency; Translations: [Venous insufficiency (chronic) (peripheral)] 06-25-2024 Episodic Other liver diseases (20 sources) Steatosis of [...] 4 02-29-2024 Chronic Other nervous system disorders (20 sources) Peripheral nerve disease ; Translations: [Polyneuropathy, unspecified] Onset: 3 05-09-2024 Chronic Other nervous system disorders (1 source) Causalgia of right lower limb; Translations: [Complex regional pain syndrome type II of right lower limb] Onset: 4 Chronic Other nervous system disorders (1 source) Other chronic pain; Translations: [Chronic toe pain, right foot] Onset: 4 Chronic Other non-traumatic joint disorders (7 sources) Derangement of left shoulder joint; Translations: [Other specific joint derangements of left shoulder, not elsewhere classified] 07-23-2024 Chronic Other non-traumatic joint disorders (6 sources) Pain in left shoulder; Translations: [Pain in joint, shoulder region] 07-23-2024 Episodic Other non-traumatic joint disorders (4 sources) Disorder of shoulder; Translations: [Other specified joint disorders, left shoulder] 06-12-2024 Episodic Other nutritional; endocrine; and metabolic disorders [...] Interpretation Reference Range Facility Ambulatory Visit Summaryon 0 10-15-2024 Ambulatory Visit Summary Ambulatory Visit Summary DONG WHITMORE :1950 Visit Date:10/15/2024 Ambulatory Visit Instructions Your Diagnosis BMI 40.0-44.9, adult Obesity, morbid, BMI 40.0-49.9 Nonsmoker Acquired absence of right great toe Chronic painful diabetic neuropathy Major depressive disorder, 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 Stage 3a chronic kidney disease Stasis ulcer Type 2 diabetes mellitus with peripheral vascular disease Non-pressure chronic ulcer of unspecified part of unspecified lower leg with unspecified severity Your Care Team Attending Physician - Haider Hickman MD Primary Care Physician - Haider Hickman MD This Is Your Medications List [facility] Prescription (Eric Prather, 5 years.) acarbose (acarbose 25 mg oral tablet) aspirin (aspirin 81 mg Oral EC Tab) buPROPion (buPROPion 300 mg/24 hours ER Tab) calcium carbonate (calcium (as carbonate) 600 mg oral tablet) carvedilol (carvedilol 6.25 mg Tab) insulin aspart (NovoLog) losartan (losartan 50 mg Tab) nitroglycerin (nitroglycerin 0.4 mg sublingual Tab) omega-3 polyunsaturated fatty acids (Fish Oil 1200 mg oral capsule) pioglitazone (pioglitazone 30 mg Tab) potassium chloride (Potassium Chloride (Hoq-Vlht-Owv M20) 20 mEq oral tablet, extended release) [...] conduit, Stimulator. Discharge Vitals Heart Rate (Peripheral) 78 Respiratory Rate 18 Blood Pressure 124/76 Height 169 cm Height 67 in Weight 125.7 kg Weight 277.121 lb BMI 44.01 What to do next Scheduled Follow-Up Appointments 2024 10:40 AM EST With: Where: [address] [address]- 2024 10:30 AM EST With: Kristofer SCHUSTER, Haider Bee Where: [address] [address]- 2024 8:00 AM EDT With: Where: [address] [address]- Monday 9:15 AM EDT With: Araceli BERMUDEZ MD Where: [facility] [address], [address] [place] [address]- Medications What How Much When Why [...] 1 Tablets By Mouth Every day Unchanged carvedilol (carvedilol 6.25 mg Tab) TAKE 1 TABLET BY MOUTH WITH BREAKFAST AND EVENING MEAL *START AFTER YOU RUN OUT OF METOPROLOL* Unchanged insulin aspart (NovoLog) See instructions SubCutaneous TIDAC Unchanged losartan (losartan 50 mg Tab) See instructions 1.5 tab(s) Oral Daily Unchanged Misc Prescription (Handicap Placard, 5 years.) [...] adult Nonsmoker Lumbar stenosis Peripheral edema Handicap Placlizzie, 5 years. Unchanged nitroglycerin (nitroglycerin 0.4 mg sublingual Tab) 1 Tablets Sublingual Every 5 minutes as needed for for chest pain Unchanged omega-3 polyunsaturated fatty acids (Fish Oil 1200 mg oral capsule) 1 Capsules By Mouth Every day Unchanged pioglitazone (pioglitazone 30 mg Tab) 1 Tablets (more content not included)... Normal [facility] Family Medicine Office/Clini c Noteon 10-15-2024 Family Medicine Office/Clinic Note Family Medicine Office/Clinic Note Chief Complaint 6m follow up HPI Staff Dong is a 74 year old male presenting for 6 month follow up Patient is here for follow up on hypertension. How often are you checking your blood pressure? Daily What are your average readings? _130/80 Do you have any of the following symptoms? Chest Pain? no Palpitations? no MILLER/SOB? no Headache? no Peripheral Edema? no Light Headedness? no Cardiology did DC metoprolol & start carvedilol. states since then, he has increased dizziness & fatigue Patient is here for follow up on Diabetes. How often are you checking your blood sugars? _ times per day What are your average readings? _96 Paresthesias, Ulcerations or sores? no Lisinopril, aspirin, statin therapy? Yes Hgb A1C %: 6.5 % High (03/08/24 08:30:00) Hgb A1c POC: 6 % (12/26/23 12:06:00) Questions/Concerns: concerned with dark spot on Lt arm as well as some upper Rt abdominal pain. History of Present Illness Patient presents for follow-up. Patient has no concerns for his chronic medical problems. Patient's only concern is for this abdominal pain and this ecchymotic spot on his left arm. On reviewing labs his INR was elevated. Abdominal pain is in the right upper quadrant. Patient has a diagnosis of SANTANA in his chart. Patient has also gained more weight. Review of Systems PHQ Score Initial Depression Screen Score: 0 SCORE Physical Exam Vitals & Measurements HR: 78(Peripheral) RR: 18 BP: 124/76 SpO2: 96% HT: 67 in HT: 169 cm WT: 125.7 kg WT: 277.121 lb BMI: 44.01 General: alert, no acute distress ENMT: oral mucosa dry Cardiovascular: Regular rate and rhythm, normal peripheral perfusion Respiratory: Lungs clear to auscultation, respirations non labored Extremities: no deformity, no trauma Neurological: oriented x 4, level of consciousness appropriate for age, CN II-XII intact, motor strength equal & normal bilaterally, speech normal Abdomen: Soft, Tender, Non-distended, + Bowel sounds Assessment/Plan 1. BMI 40.0-44.9, adult (Z68.41: Body mass index [BMI] 40.0-44.9, adult) BMI education added Ordered: CBC w/ Auto Diff Comprehensive Metabolic Panel HgbA1c Lipid Panel Microalbumin Level Urine PT & PTT Urine Microalbumin/Creatinin e Ratio US Liver 2. Obesity, morbid, BMI 40.0-49.9 (E66.01: Morbid (severe) obesity due to excess calories) Diet and exercise advised Ordered: CBC w/ Auto Diff Comprehensive Metabolic Panel HgbA1c Lipid Panel Microalbumin Level Urine PT & PTT Urine Microalbumin/Creatinin e Ratio US Liver 3. Nonsmoker (Z78.9: Other specified health status) Please continue not to smoke Ordered: CBC w/ Auto Diff Comprehensive Metabolic Panel HgbA1c Lipid Panel Microalbumin Level Urine PT & PTT Urine Microalbumin/Creatinin e Ratio US Liver 4. Acquired absence of right great toe (Z89.411: Acquired absence of right great toe) Still absent Ordered: CBC w/ Auto Diff Comprehensive Metabolic Panel HgbA1c Lipid Panel Microalbumin Level Urine PT & PTT Urine Microalbumin/Creatinin e Ratio US Liver 5. Chronic painful diabetic neuropathy (E11.40: Type 2 diabetes mellitus with diabetic neuropathy, unspecified) Well-controlled. No concerns today. Ordered: CBC w/ Auto Diff Comprehensive Metabolic Panel HgbA1c Lipid Panel Microalbumin Level Urine PT & PTT Urine Microalbumin/Creatinin e Ratio US Liver 6. Major depressive disorder, 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 (F32.5: Major depressive disorder, single episode, in full remission) Improved. Ordered: CBC w/ Auto Diff Comprehensive Metabolic Panel HgbA1c Lipid Panel Microalbumin Level Urine PT & PTT Urine Microalbumin/Creatinin e Ratio US Liver 7. Stage 3a chronic kidney disease (N18.31: Chronic kidney disease, stage 3a) Labs ordered. Ordered: CBC w/ Auto Diff Comprehensive Metabolic Panel HgbA1c Lipid Panel Microalbumin Level Urine PT & PTT Urine Microalbumin/Creatinin e Ratio 8. Stasis ulcer (I83.009: Varicose veins of unspecified lower extremity with ulcer of unspecified site) Resolved. Will remove out of the chart. Ordered: CBC w/ Auto Diff Comprehensive Metabolic Panel HgbA1c Lipid Panel Microalbumin Level Urine PT & PTT Urine Microalbumin/Creatinin e Ratio 9. Type 2 diabetes mellitus with peripheral vascular disease (E11.51: Type 2 diabetes mellitus with diabetic peripheral angiopathy without gangrene) Blood sugars have been better controlled. Has had no concerns. Ordered: CBC w/ Auto Diff Comprehensive Metabolic Panel HgbA1c Lipid Panel Microalbumin Level Urine PT & PTT Urine Microalbumin/Creatinin e Ratio 10. Fatty (change of) liver, not elsewhere classified (K76.0) Schedule ultrasound to evaluate liver size and pathology; address potential causes of elevated INR and liver discomfort. Will follow-up in 1 month. Ordered: CBC w/ Auto Diff Comprehe (more content not included)... Normal [facility] Comment on above: Result Comment: Elec tronically Signed By: Kristofer SCHUSTER, Haider Bee\.br\Date and Time Signed: 10/15/24 13:10 EST CMPon 09-10-2024 Albumin [Mass/Vol] 4.3 g/dL Normal 3.3-5.0 [facility] Comment on above: Performed By: #### 2 [id number] #### [facility] [address] [place] [address] Albumin/Globulin (S) [Mass conc ratio] 1.7 Normal 1.1-2.2 [facility] Comment on above: Performed By: #### 2 [id number] #### [facility] [address] [place] [address] ALP [Catalytic activity/Vol] 73 Int._Unit/L Normal 21-98 [facility] Comment on above: Performed By: #### 2 [id number] #### [facility] [address] [place] [address] ALT No additional P-5'-P [Catalytic activity/Vol] 23 Int._Unit/L Normal 6-46 [facility] Comment on above: Performed By: #### 2 [id number] #### [facility] [address] [place] [address] Anion gap [Moles/Vol] 12 mmol/L Normal 6-16 [facility] Comment on above: Performed By: #### 2 [id number] #### [facility] [address] [place] [address] AST [Catalytic activity/Vol] 25 Int._Unit/L Normal 5-43 [facility] Comment on above: Performed By: #### 2 [id number] #### [facility] [address] [place] [address] Bilirubin [Mass/Vol] 0.5 mg/dL Normal 0.0-1.1 [facility] Comment on above: Performed By: #### 2 [id number] #### [facility] [address] [place] [address] Calcium [Mass/Vol] 9.2 mg/dL Normal 8.9-11.1 [facility] Comment on above: Performed By: #### 2 [id number] #### [facility] [address] [place] [address] Chloride [Moles/Vol] 108 mmol/L Normal 101-111 [facility] Comment on above: Performed By: #### 2 [id number] #### [facility] [address] [place] [address] CO2 [Moles/Vol] 26 mmol/L Normal 21-31 [facility] Comment on above: Performed By: #### 2 [id number] #### [facility] [address] [place] [address] Creatinine [Mass/Vol] 1.3 mg/dL Normal 0.5-1.3 [facility] Comment on above: Performed By: #### 2 [id number] #### [facility] [address] [place] [address] Globulin (S) [Mass/Vol] 2.5 g/dL Normal 1.4-4.0 [facility] Comment on above: Performed By: #### 2 [id number] #### [facility] [address] [place] [address] Glucose [Mass/Vol] 137 mg/dL Normal 55-199 [facility] Comment on above: Performed By: #### 2 [id number] #### [facility] [address] [place] [address] Potassium [Moles/Vol] 4.7 mmol/L Normal 3.5-5.3 [facility] Comment on above: Performed By: #### 2 [id number] #### [facility] [address] [place] [address] Protein [Mass/Vol] 6.8 g/dL Normal 6.0-7.8 [facility] Comment on above: Performed By: #### 2 [id number] #### [facility] [address] [place] [address] Sodium [Moles/Vol] 141 mmol/L Normal 135-145 [facility] Comment on above: Performed By: #### 2 [id number] #### [facility] [address] [place] [address] Urea nitrogen [Mass/Vol] 28 mg/dL High 5-21 [facility] Comment on above: Performed By: #### 2 [id number] #### [facility] [address] [place] [address] Urea nitrogen/Creatinine [Mass ratio] 22 No Units High 10-20 [facility] Comment on above: Performed By: #### 2 [id number] #### [facility] [address] [place] [address] Magnesiumon 09-10-2024 Magnesium [Mass/Vol] 1.8 mg/dL Normal 1.3-2.4 [facility] Comment on above: Performed By: #### 2 [id number] #### [facility] [address] [place] [address] eGFRon 09-10-2024 eGFR 57 mL/min/1.73 m2 Low >=59 [facility] Comment on above: Performed By: #### 1 [id number] #### [facility] [address] [place] [address] Family Medicine Office/Clini c Noteon 09-09-2024 Family Medicine Office/Clinic Note Family Medicine Office/Clinic Note Chief Complaint Persistent feelings of imbalance for the past 2-3 months. HPI Staff Dong is a 74 year old male presenting for acute visit Acute: balance is off, not dizzy or lightheaded just doesn't have any balance. Going on for a couple months but getting worse. questions/concerns: needs his acorbose and ntg refilled. History of Present Illness The patient is a 74-year-old male presenting with a balance problem. He reports a persistent sensation of being off balance for the past 2 to 3 months, which is described as a feeling of unsteadiness, particularly when standing on one foot, walking, or turning around too quickly. The patient denies dizziness but notes that stooping or bending over exacerbates the imbalance. He also reports a concurrent issue with his toe that exacerbates when walking, for which he recently received a pain management injection. However, the injection was administered to the left side, and he experienced numbness in the left leg afterwards. The patient has been monitoring his blood pressure at home per cardiology recommendation, citing instrument inaccuracies. He mentions a concern regarding his blood pressure monitor readings being consistently higher than manual measurements. Past medical history includes morbid obesity with a BMI of 40.0-44.9 and he is a nonsmoker. Review of Systems PHQ Score Initial Depression Screen Score: 0 SCORE Physical Exam Vitals & Measurements T: 36.4 ???C(Temporal Artery) HR: 70(Peripheral) RR: 20 BP: 120/76 SpO2: 99% HT: 67 in HT: 169 cm WT: 120 kg WT: 264.554 lb BMI: 42.02 General: alert, no acute distress ENMT: oral mucosa moist Cardiovascular: Regular rate and rhythm, normal peripheral perfusion Respiratory: Lungs clear to auscultation, respirations non labored Extremities: no deformity, no trauma, left leg previously numb, toe pain present Neurological: oriented x 4, level of consciousness appropriate for age, CN II-XII intact, motor strength equal & normal bilaterally, speech normal, balance issues noted, difficulty balancing on one foot, off balance when turning or stooping Abdomen: Soft, Non-tender, Non-distended, + Bowel sounds Assessment/Plan 1. Balance problem (R26.89: Other abnormalities of gait and mobility) Further assessment of the balance issue through possible referral to physical therapy to evaluate for inner ear involvement and proprioceptive complications. Consider assessment at [facility] for balance and gait evaluation. Discuss with patient about the role of inner ear and proprioception in balance, and recommend a detailed physical therapy evaluation to rule out inner ear issues. Ordered: Comprehensive Metabolic Panel Magnesium Level 2. Pain, foot, right, chronic (M79.671: Pain in right foot) Ordered: Comprehensive Metabolic Panel Magnesium Level 3. BMI 40.0-44.9, adult (Z68.41: Body mass index [BMI] 40.0-44.9, adult) Continue monitoring weight and consider diet and lifestyle interventions to manage morbid obesity. Possible consultation with a card folder for weight management strategies. Ordered: Body Mass Index (BMI) documented 3008F Comprehensive Metabolic Panel Current tobacco non-user 1036F Depression Screening Negative 3352F Influenza immunization administered or previously received 4274F Magnesium Level Most recent diastolic blood pressure <80 mm Hg 3078F Patient screen for fall risk: no falls in last year or 1 fall with no injury in last year 1101F Systolic BP <130 mm Hg (Most Recent) 3074F 4. Morbid obesity with BMI of 40.0-44.9, adult (E66.01: Morbid (severe) obesity due to excess calories) Address diet and physical activity as a primary intervention. Consideration for a comprehensive weight management program tailored to the patient???s needs. Ordered: Body Mass Index (BMI) documented 3008F Comprehensive Metabolic Panel Current tobacco non-user 1036F Depression Screening Negative 3352F Influenza immunization administered or previously received 4274F Magnesium Level Most recent diastolic blood pressure <80 mm Hg 3078F Patient screen for fall risk: no falls in last year or 1 fall with no injury in last year 1101F Systolic BP <130 mm Hg (Most Recent) 3074F 5. Nonsmoker (Z78.9: Other specified health status) Maintain current nonsmoker status. Provide reinforcement of healthy lifestyle choices. Ordered: Body Mass Index (BMI) documented 3008F Comprehensive Metabolic Panel Current tobacco non-user 1036F Depression Screening Negative 3352F Influenza immunization administered or previously received 4274F Magnesium Level Most recent diastolic blood pressure <80 mm Hg 3078F Patient screen for fall risk: no falls in last year or 1 fall with no injury in last year 1101F Systolic BP <130 mm Hg (Most Recent) 3074F 6. Bilateral leg pain (M79.604: Pain in right leg) Will check magnesium levels and potassium. Unsure what the burning in his legs is fro (more content not included)... Normal [facility] Comment on above: Result Comment: Elec tronically Signed By: Kristofer SCHUSTER, Haider Bee\.br\Date and Time Signed: 09/09/24 15:07 EST 36on 09-03-2024 36 Confirmed with Kat, the BP readings at end of report were from the new BP monitor and his BP in office compared to his new cuff was 130s/70s. Based off of the other readings, recommend switching his metoprolol to carvedilol, start at 6.25mg BID. Follow-up 2-3 months. THanks Normal [facility] Ambulatory Visit Summaryon 1 10-15-2023 Ambulatory Visit [...] Hickman MD This Is Your Medications List [facility] Prescription (Handicap Yamilka, 5 years.) acarbose (acarbose [...] 30 mg Tab) potassium chloride (Potassium Chloride (Npq-Gwxc-Psy M20) 20 mEq oral tablet, extended release) [...] EST With: Kristofer SCHUSTER, Haider Bee Where: [address] [address] 2024 8:00 AM EDT With: Where: [address] [address]- Monday 9:15 AM EDT With: AIDAN SCHUSTER, Araceli Treadwell Where: [facility] [address], [address] [place] [address]- Medications What How Much When Why Instructions [...] Every day Unchanged potassium chloride (Potassium Chloride (Jjc-Vdin-Fec M20) 20 mEq oral tablet, extended release) 1 Tablets By Mouth Every day Unchanged pregabalin (Lyrica 75 mg Cap) 1 Capsules By Mouth 2 times a day Unchanged simvastatin (simvastatin 40 mg Tab) 1 Tablets (more content not included)... Normal [facility] Family Medicine Office/Clini c Noteon 08-15-2024 Family [...] BID, # 60 cap(s), Refills(s) 1, Pharmacy: [facility]/pharmacy #[id number], 169, cm, 08/15/24 10:34:00 EST, Height/Length [...] interactions b (more content not included)... Normal [facility] Comment on above: Result Comment: Elec tronically Signed By: Kristofer SCHUSTER, Haider Sandhu.br\Date and Time Signed: 08/15/24 11:26 EST OCTAVIOOVon 08-14-2024 CNOV Office Visit (NPRC21 ) DONG WHITMORE ([id number]) 1950 M Date Time Provider Department 08/14/24 10:00 AM CHIQUI ROBLES NPRC21 During your visit today, we recorded the following information about you: Pulse Respiration Blood pressure Weight 59/minute 16/minute 137/69 117.2 kg Claudia Chilel MD 08/14/2024 10:51 AM Signed THE [facility] [place] August 14, 2024 This is a face [...] Chiqui Robles MD 08/26/2024 4:34 PM Addendum [facility] STAFF PHYSICIAN NOTE OF PERSONAL INVOLVEMENT [...] - psychotherapy was utilized during the visit. Jdsq-jo-cijb time: 57125 (16-37 mins) actual time spend in psychotherapy 18 minutes Type of therapeutic intervention:Supportiv e Target symptoms: Pain coping skills and Acceptance and adapting Progress/Session notes:processing Interactive Complexity: None STAFF PHYSICIAN:: Chiqui Robles MD DATE of SERVICE: 08/14/2024 Referring Provider: CHIQUI ROBLES [[id number]] Allergies As of Date: 08/14/2024 Noted Allergy [...] [E66.813, E66.01, Z68.41] Order(s):PROVIDER ORDERED FOLLOW UP [[id number]] Order #: [id number]: 1 Prescriptions as of 08/26/2024 - pregabalin (LYRICA) 75 mg capsule Take 75 mg by mouth two times a day. - memantine (NAMENDA) (more content not included)... Normal [facility] Office Visiton 08-07-2024 Follow-up visit [id number] Dong Whitmore 1950 Date Provider Department Center 08/07/2024 [id number]-UIYBNOESSENCE AWSHBURN [facility] Family History Problem Relation Age of Onset Coronary artery disease Other Diabetes Other Family Status - Relation Status Age at Other Level of Service:53669 [place] OFFICE/OUTPATIENT ESTABLISHED [facility] 30 MIN Reason for Visit and Comments: Hypertension [717247] - He brought BP log from home with him today. Readings are usually in the 130-140's systolic. Hyperlipidemia [182] Coronary Artery Disease [187] - Denies chest pain and SOB. Normal [facility] Ambulatory Visit Summaryon 1 Ambulatory [...] 30 mg Tab) potassium chloride (Potassium Chloride (Ihz-Apks-Zcl M20) 20 mEq oral tablet, extended release) [...] AM EST With: Haider Hickman MD Where: [address] [address]- Monday 3:30 PM EST With: Haider Hickman MD Where: [address] [address]- 2024 8:00 AM EDT With: Where: [address] [address]- Monday 9:15 AM EDT With: Araceli BERMUDEZ MD Where: [facility] [address] [place] [address]- Someone Will Contact You Regarding These Appointments [facility] External Ambulatory Referral, Neurology, 08/01/24 12:15:00 EDT, Suicidal ideation Unspecified mononeuropathy of right lower limb BMI 40.0-44.9, adult Morbid obesity with body mass index (BMI) of 40.0 or higher Nonsmoker Medications What How Much When Why Instructions New pregabalin (Lyrica 75 mg Cap) 1 Capsules By Mouth 2 times a day Pickup at [facility]/pharmacy #[id number] Changed tizanidine (tiZANidine 4 mg Tab) 4 Milligram By Mouth Every 8 hours Pickup at [facility]/pharmacy #[id number] Changed venlafaxine (venlafaxine 75 mg Tab) 1 Tablets By Mouth 2 times a day Pickup at [facility]/pharmacy #6177 Unchanged acarbose (acarbose 25 mg oral [...] 1 Table (more content not included)... Normal [facility] Family Medicine Office/Clini c Noteon 08-01-2024 Family [...] appt comiing up with a dr at [facility] says he's a psychiatrist he's in pain [...] E&M of Est. Patient High 40-54 Min 93825 [facility] External Ambulatory Referral Prolonged OV 15 min 93219 2. Unspecified mononeuropathy of right lower limb [...] E&M of Est. Patient High 40-54 Min 84316 [facility] External Ambulatory Referral Prolonged OV 15 min 97306 3. BMI 40.0-44.9, adult (Z68.41: Body mass index [BMI] 40.0-44.9, adult) Discussed the importance of lifestyle changes, including dietary modifications and physical activity, to manage BMI. Addressed the potential contributions of morbid obesity to peripheral neuropathic symptoms. Ordered: Body Mass Index (BMI) documented 3008F Current tobacco non-user 1036F Depression Screening Positive 3354F E&M of Est. Patient High 40-54 Min 10354 Fall Risk Screen 2 or more w/injury 1100F [facility] External (more content not included)... Normal [facility] Comment on above: Result Comment: Elec tronically Signed By: Kristofer SCHUSTER, Haider Sandhu.br\Date and Time Signed: 08/01/24 12:17 EDT 36on [...] other machine again): L sitting 175/112 Normal [facility] Telephoneon 07-23-2024 Telephone [id number] Dong Whitmore 1950 M Date Provider Department Center 07/23/2024 928-BRITNEY MURPHY DALTON Sarkar Family History Problem Relation Age of Onset Coronary artery disease Other Diabetes Other Family Status - Relation Status Age at Other Normal [facility] Office Visiton 07-19-2024 Follow-up visit [id number] Aldo Whitmorewei Nur 1950 M Date Provider Department Center 07/19/2024 3848-ELAINE [facility] Family History Problem Relation Age of Onset Coronary artery disease Other Diabetes Other Family Status - Relation Status Age at Other Level of Service:28719 ND OFFICE/OUTPATIENT ESTABLISHED MOD MDM 30 MIN Normal [facility] Ambulatory Visit Summaryon 1 Ambulatory Visit Summary Ambulatory Visit Summary ALDO WHITMOREHEN Boom :1950 Visit Date:07/17/2024 Ambulatory Visit Instructions Your [...] 30 mg Tab) potassium chloride (Potassium Chloride (Kjs-Xjhy-Qzi M20) 20 mEq oral tablet, extended release) [...] EST With: Kristofer SCHUSTER, Haider Bee Where: [address] [address]- Monday 10:30 AM EST With: Araceli BERMUDEZ MD Where: [facility] [address], [address] [place] [address] 2024 8:00 AM EDT With: Where: [facility] [address] [address]- Monday 9:15 AM EDT With: Araceli BERMUDEZ MD Where: [facility] [address], [address] [place] [address]- You Need to Schedule the Following Appointments Follow Up with Araceli BERMUDEZ MD, URL When: Where: [address] [facility] [place] [address]- Medications What How Much When Why Instructions Unchanged sodium bicarbonate (sodium bicarbonate 650 mg Tab) 2 Tablets By Mouth 3 times a day Duration: 90 Days Pickup at [facility]/pharmacy #0793 Unchanged acarbose (acarbose 25 mg oral tablet) [...] years.) Se (more content not included)... Normal [facility] Reminderson 07-17-2024 Reminders Reminders From: Roya Álvarez To: PREM Bermudez; Sent: 07/17/2024 10:05:54 EDT Show up: 05/17/2025 10:05:00 EDT Subject: Renal US Due Date/Time: 05/17/2025 10:05:00 EDT Reminder Message Renal US to be done prior to 1 year appointment. [facility]. Order created today. Normal [facility] Urology Office/Clinic Noteon 07-17-2024 Urology Office/Clinic Note Urology Office/Clinic Note Chief Complaint follow up HPI Staff 73 yo male here for f/up with renal US. Previous dx: kidney stone, complex renal cyst, BPH w/ LUTS, impotence. Taking Sodium Bicarb 650mg tid. Renal US 10/31/23 [facility]. KUB 11/10/23 TB - no stones id'd. S/p cysto, R RPG, R ESWL 01/04/24. Renal US 01/24/24 [facility] - neg limited renal ultrasound. Renal US [...] with voice recognition artificial intelligence software, specifically [employer] and or [employer]. Substitutions may have occurred due to the [...] RPG, R ESWL 01/04/24. Renal US 01/24/24 [facility] - neg limited renal ultrasound. Renal US [...] Contact Information Araceli BERMUDEZ MD, URL [address] [place] [address]- Additional Instructions: 1 year w/ renal US Patient Education Dietary Guidelines to Help Prevent Kidney Stones IRoya, personally scribed for Dr. Bermudez on 07/17/2024 10:05:06 (more content not included)... Normal [facility] Comment on above: Result Comment: Elec tronically Signed By: Araceli BERMUDEZ MD\.br\Date and Time Signed: 07/17/24 10:09 EDT\.br\Electronically Co-Signed By: Roya Álvarez\.br\Date and Time Co-Signed: 07/17/24 10:05 EDT Office Visiton 06-26-2024 Follow-up visit [id number] Dong Whitmore 1950 M Date Provider Department Center 06/26/2024 Y[facility] Family History Problem Relation Age of Onset Coronary artery disease Other Diabetes Other Family Status - Relation Status Age at Other Level of Service:06177 ND OFFICE/OUTPATIENT ESTABLISHED MOD MDM 30 MIN Reason for Visit and Comments: Coronary Artery Disease [187] Hypertension [208818] Normal [facility] XR Foot - right 3 Viewson Imaging Result: [facility] Radiology Study observation (narrative) [facility] No Panel Informationon 06-12 Chelle Brandon NP 06/12/2024 9:40 AM L Inj/Asp: L subacromial bursa on 06/12/2024 9:39 AM Indications: pain Details: 20 G needle, posterior approach Medications: 40 mg methylPREDNISolone acetate 40 MG/ML Utilizing aseptic technique with universal precautions . Pt given injection Left Shoulder SA space Procedure, treatment alternatives, risks and benefits explained, specific risks discussed. Consent was given by the patient. Patient was prepped and draped in the usual sterile fashion. [facility] Ambulatory Visit Summaryon 0 05-31-2024 [...] Hickman MD This Is Your Medications List [facility] Prescription (Eric Prather, 5 years.) acarbose (acarbose [...] 30 mg Tab) potassium chloride (Potassium Chloride (Dfg-Tizr-Kva M20) 20 mEq oral tablet, extended release) [...] Follow-Up Appointments Monday 9:15 AM EDT With: AIDAN SCHUSTER, Araceli Treadwell Where: [facility] [address], [address] [place] [address]- Monday 3:30 PM EST With: Kristofer SCHUSTER, Haider Bee Where: [address] [id number]- Monday 10:30 AM EST With: Araceli BERMUDEZ MD Where: [facility] [place] [address], [address] [place] [address] 2024 8:00 AM EDT With: Where: [address] [address]- Medications What How Much When Why Instructions [...] Unchanged nitrog (more content not included)... Normal [facility] Family Medicine Office/Clini c Noteon 05-23-2024 Family [...] 10 days Encouraged to leave the are C[employer] f/u with pcp after seen at wound clinic Ordered: clindamycin, 300 mg = 1 cap(s), Oral, BID, X 10 day(s), # 20 cap(s), Refills(s) 0, Pharmacy: [facility]/pharmacy #[id number], 169, cm, 05/22/24 14:52:00 EDT, Height/Length [...] day(s), # 20 cap(s), Refills(s) 0, Pharmacy: [facility]/pharmacy #[id number], 169, cm, 05/22/24 14:52:00 EDT, Height/Length Dosing, 122, kg, 05/22/24 14:52:00 EDT, Weight Dosing 3. Non-smoker (Z78.9: Other specified health status) Encouraged to continue as a non-smoker Ordered: clindamycin, 300 mg = 1 cap(s), Oral, BID, X 10 day(s), # 20 cap(s), Refills(s) 0, Pharmacy: [facility]/pharmacy #[id number], 169, cm, 05/22/24 14:52:00 EDT, Height/Length [...] Oral, BID (more content not included)... Normal [facility] Comment on above: Result Comment: Elec tronically [...] Hickman MD This Is Your Medications List [facility] Prescription (Eric Prather, 5 years.) acarbose (acarbose [...] 30 mg Tab) potassium chloride (Potassium Chloride (Ttr-Tbiu-Mkw M20) 20 mEq oral tablet, extended release) [...] AM EDT With: Kajal Cam DPM Where: [facility] [place] Monday 9:15 AM EDT With: Araceli BERMUDEZ MD Where: [facility] [address], [address] [place] [address]- Monday 3:30 PM EST With: Haider Hickman MD Where: [address] [id number]- Monday 10:30 AM EST With: Araceli BERMUDEZ MD Where: [facility] [address], [address] [place] [address] 2024 8:00 AM EDT With: Where: [address] [address]- Medications What How Much When Why Instructions New clindamycin (clindamycin 300 mg oral cap) 1 Capsules By Mouth 2 times a day Cellulitis of leg BMI 40.0-44.9, adult Non-smoker Class 3 severe obesity due to excess calories with body mass index (BMI) of 40.0 to 44.9 in adult Duration: 10 Days Pickup at [facility]/pharmacy #4332 Unchanged acarbose (acarbose 25 mg oral tablet) [...] adult Nonsmoker Lumbar stenosis Peripheral edema Handicap Donard, 5 years. Unchanged nitroglyce (more content not included)... Normal [facility] Medicine Office/Clini c Noteon 05-14-2024 Family Medicine [...] Airborne, Droplet Precautions for MERS/COVID-19 : N/A Aidan Debra Swanson 05/13/2024 9:39 EDT Medicare/Medicaid Summary Systolic Blood Pressure : 138 mmHg Diastolic Blood Pressure : 70 mmHg Blood Pressure Location : Left arm Blood Pressure Position : Sitting Peripheral Pulse Rate : 65 bpm Respiratory Rate : 14 br/min SpO2 : 95 % Aidan Debra Swanson 05/13/2024 10:35 EDT Chief Complaint : [...] Foot Numeric Rating Pain Score : 8 Aidan Debra Swanson 05/13/2024 9:39 EDT Hearing and Vision [...] : Living will, Medical durable power of contracts attorney Organ Donation Consent : Yes Debra [...] Last Reviewed Dt/Tm: 05/13/2024 09:44:11 EDT Location: [facility] ; Anesthesia Minutes: 0 ; Procedure [...] 05/13/2024 09:44:11 (more content not included)... Normal [facility] Comment on above: Result Comment: Elec tronically Signed By: Haider Hickman MD\.br\Date and Time Signed: 05/14/24 10:23 EDT\.br\Electronically Co-Signed By: Debra Bermudez.cyrus\Date and Time Co-Signed: 05/13/24 13:04 EDT Ksenia 04-24-2024 CNOV Office Visit (NPRC21 ) DONG WHITMORE ([id number]) 1950 M Date Time Provider Department 04/24/24 9:00 AM CHIQUI ROBLES NPRC21 During your visit today, we recorded the following information about you: Pulse Blood pressure Weight Height 61/minute 122/89 122.5 kg 1.702 m Parish Rios MD 04/24/2024 11:[address] [facility] [place] April 24, 2024 This is a face [...] Camacho Desimir, MD 04/24/2024 11:26 AM Signed [facility] STAFF PHYSICIAN NOTE OF PERSONAL INVOLVEMENT IN CARE IMPRESSION: Complex regional pain syndrome Adjustment Disorder Tried multiple injections, procedures, surgeries. No benefit Tried SCS and recently DRG without success. Discussed ketamine PLAN: Ketamine infusions Consider scrambler therapy Psych psychology Memantine 5mg Psychotherapy Add-on Progress Note Due to medical condition and comorbid psychological and behavioral concerns - psychotherapy was utilized during the visit. Tuyf-fs-rdij time: [id number] (16-37 mins) actual time spend in psychotherapy [...] which included preparing to see the patient, fewt-hj-floq patient care, completing clinical documentation, performing a medically appropriate examination, and counseling and educating the patient/family/caregiv er. As noted, the patient's clinical situation is complex and serious with significant comorbidity of pain and functional limitations. This requires higher levels of time, intensity, and expense with longitudinal care and support. STAFF PHYSICIAN:: Chiqui Robles MD DATE of SERVICE: 04/24/2024 Referring Provider: HERBERTH ARAUJO [[id number]] Allergies As of Date: 04/24/2024 Noted Allergy [...] obesity type (HCC) [E66.01, Z68.41] Order(s):CONSULT TO [facility] FOR PAIN RECOVERY (CHRONIC PAIN) [6829004] Order #: [id number]: 1 PAIN RECOVERY FOLLOW UP ORDER [[id number]] Order #: [id number]: 1 FUTURE PROVIDER ORDERED FOLLOW UP [1782449] Order #: [id number]: 1 FUTURE memantine (NAMENDA) 5 mg tabletTake 1 tablet by mouth once daily.Disp: 30 tabletRfl: 3 CONSULT TO [facility] FOR CHRONIC PAIN [9044] Order #: [id number]: 1 FUTURE Prescriptions as of 04/24/2024 - memantine (NAMENDA) 5 mg tablet Take 1 tablet by mouth once daily. - aspirin, enteric coated (ASPIRIN, ENTERIC COATED) 81 mg EC tablet Take 81 mg by mouth once daily. - fi (more content not included)... Normal [facility] BRIEF OP NOTon 04-03-2024 BRIEF OP NOT HNO ID: [id number] Author: CAPRICE DOWNNIG MD Service: Pain Management Author Type: Fellow Type: Brief Op Note Filed: 04/03/2024 10:35 Note Text: BRIEF OPERATIVE / PROCEDURE NOTE LOG ID: [id number] SURGERY/PROCEDURE DATE: 04/03/2024 PROCEDURE START TIME: 0959 PROCEDURE END TIME: 1030 PRE-OP/PRE-PROCEDURE DIAGNOSIS: Chronic toe pain, right foot [M79.674, G89.29] Complex regional pain syndrome type II of right lower limb [G57.71] POST-OP/POST-PROCEDURE DIAGNOSIS: Chronic toe pain, right foot [M79.674, G89.29] Complex regional pain syndrome type II of right lower limb [G57.71] SURGEON(S)/PROCEDURALI ST(S) AND WATERSHED PROGRAM MANAGER(S): Surgeon(s) and Role: * Herberth Araujo MD, PhD - Primary * Caprice Downing MD No Additional Staff SURGERY/PROCEDURE(S): Attempted Right L4 and L5 Dorsal Root Ganglion Stimulator ANESTHESIA: Anxiolysis and Local anesthetic FINDINGS: None ESTIMATED BLOOD LOSS: Minimal SPECIMENS: None COMPLICATIONS: None Caprice Downing MD Pain Medicine Fellow April 03, 2024 [facility] NURSING PROGon 04-03-2024 NURSING PROG HNO ID: [id number] Author: CAYETANO ROSALES RN Service: Nursing Author Type: Registered Nurse Type: Nursing Progress Note Filed: 04/08/2024 15:32 Note Text: Summary: Follow up phone call Follow up phone call made regarding outcome of procedure. No answer voicemail left - The patient was instructed to call [phone] with the percentage of pain relief and what activities have improved. [employer] message also sent. [facility] NURSING PROG HNO ID: [id number] Author: SURINDER LARES RN Service: Nursing Author Type: Registered Nurse Type: Nursing Progress Note Filed: 04/09/2024 10:09 Note Text: Summary: Post Procedure Call Patient left voice mail. Team was unable to finish procedure due to patient was unable to stay still. No pain relief noted. Surinder Lares RN April 09, 2024 [facility] NURSING PROG HNO ID: [id number] Author: EMILEE HYDE RN Service: ? Author Type: Registered Nurse Type: Nursing Progress Note Filed: 04/03/2024 10:45 Note Text: Dr. Marian Downing (fellow) discusses reason why procedure was aborted today. Other options for pain management was discussed with patient and . [facility] OPERATIVE NOon 04-03-2024 OPERATIVE NO HNO ID: [id number] Author: HERBERTH ARAUJO MD, PhD Service: Pain Management Author Type: Physician Type: Operative Report Filed: 04/03/2024 20:14 Note Text: OPERATIVE/PROCEDURE REPORT : LOG ID: [id number] SURGERY/PROCEDURE DATE: 04/03/2024 INCISION/PROCEDURE START TIME: 9:59 [...] Dorsal Root Ganglion Stimulator SURGEON(S)/PROCEDURALI ST(S) AND WATERSHED PROGRAM MANAGER(S): Surgeon(s) and Role: * Herberth Araujo MD, [...] reviewed and the patient voiced understanding. Caprice Donwing MD Pain Medicine Fellow April 03, 2024 [...] ELECTRONIC SIGNATURE, Herberth Araujo MD, PhD Normal [facility] HISTORY PHYSICALon HISTORY PHYSICAL HNO ID: [id number] Author: HERBERTH ARAUJO MD, PhD Service: Pain Management Author Type: Physician Type: H&P Filed: 04/03/2024 09:33 Note Text: PROCEDURE EVALUATION AND HISTORY AND PHYSICAL EXAM SUBJECTIVE: Dong Wihtmore is a 73 year old man who presents to [facility] for Right L4 and L5 Dorsal Root Ganglion Stimulator Trial. This is his first (1) procedure. Focused Review of Systems: PAIN: Denies any contraindications to the procedure including coagulopathy, infection, recent cerebral/myocardial infarct, and hemodynamic instability. He states he is NPO and has a independent driver for return home. Current Outpatient Medications [...] the patient's condition since the last [facility] visit: No Provisional Diagnosis: Chronic toe pain, right foot [M79.674, G89.29] Complex regional pain syndrome type II of right lower limb [G57.71] Planned Procedure: Right L4 and L5 Dorsal Root Ganglion Stimulator Trial Caprice Downing MD Pain Medicine Fellow April 03, 2024 Herberth Araujo MD, PhD Normal [facility] NURSING PROGon 04-01-2024 NURSING PROG HNO ID: [id number] Author: GILBERTO BAUTISTA RN Service: ? Author [...] 2 hours before the appointment. 2. A independent driver must be present who can drive you home. If you are coming by medical transport, you must have a responsible person other than the transportation planning technician with you. 3. Do you take any [...] or cannot make the appointment by calling [phone] (Option 2). Normal [facility] Ambulatory Visit Summaryon 0 03-26-2024 Ambulatory [...] Hickman MD [facility] (Handicap Yamilka, 5 years.) furosemide (Lasix 40 mg Tab) potassium chloride (Potassium Chloride (Dij-Qswx-Abh M20) 20 mEq oral tablet, extended release) [...] 9:30 AM EDT With: Where: [facility] Invalid Interpretation Code [address], [address] [place] [address]- \.br \ Monday 2:15 PM EST \.br\ With: Kristofer SCHUSTER, Haider Bee\.br\ Where: [facility] Medicine Office/Clini c Noteon 03-26-2024 Family [...] years., Suppl (more content not included)... Normal [facility] Comment on above: Result Comment: Elec tronically [...] numbers. This can be done either in American (U.S.) or metric measurements. Note that charts and online BMI calculators are available to help you find your BMI quickly and easily without having to do these calculations yourself. To calculate your BMI in American (U.S.) measurements: 1. Measure your weight in [...] for Disease Control and Prevention: www.cdc.gov ? [place] Heart Association: www.heart.org ? National Heart, Lung, and Blood [place]: www.nhlbi.nih.gov Summary ? Body mass index (BMI) is a number that is calculated from a person's weight and height. ? BMI may help estimate how much of a person's weight is composed of fat. BMI can help identify those who may be at higher risk for certain medical problems. ? BMI can be measured using American measurements or metric measurements. ? BMI charts are used to identify whether you are underweight, normal weight, overweight, or obese. This information is not intended to replace advice given to you by your health care provider. Make sure you discuss any questions you have with your health care provider. Document Revised: 06/17/2020 Document Reviewed: 04/24/2020 [employer] Patient Education ? 2022 Queue-it. [facility] Sona 03-19-2024 JACEY Telephone (HOLLIE) DONG WHITMORE ([id number]) 1950 M Date Time Provider Department 03/19/24 HERBERTH ARAUJO During your visit today, we recorded the following information about you: Emilee So RN 03/19/2024 1:32 PM Signed Spoke with patient at request of district court judge as patient has questions about referral to infectious disease. Patient states that he spoke with his PCP, Dr. Hickman ([phone]) who spoke with Dr. Vega in Infectious disease at [facility]. Dr. Hickman ordered lab work at [...] Status:Closed by EMILEE SO on 03/21/24 Normal [facility] BMPon 03-08-2024 Anion gap [Moles/Vol] 14 mmol/L Normal 6-16 [facility] Comment on above: Performed By: #### 2 [id number] #### [facility] [address] [place] [address] Calcium [Mass/Vol] 9.4 mg/dL Normal 8.9-11.1 [facility] Comment on above: Performed By: #### 2 [id number] #### [facility] [address] [place] [address] Chloride [Moles/Vol] 104 mmol/L Normal 101-111 [facility] Comment on above: Performed By: #### 2 [id number] #### [facility] [address] [place] [address] CO2 [Moles/Vol] 24 mmol/L Normal 21-31 [facility] Comment on above: Performed By: #### 2 [id number] #### [facility] [address] [place] [address] Creatinine [Mass/Vol] 1.5 mg/dL High 0.5-1.3 [facility] Comment on above: Performed By: #### 2 [id number] #### [facility] [address] [place] [address] Glucose [Mass/Vol] 109 mg/dL Normal 55-199 [facility] Comment on above: Performed By: #### 2 [id number] #### [facility] [address] [place] [address] Potassium [Moles/Vol] 4.2 mmol/L Normal 3.5-5.3 [facility] Comment on above: Performed By: #### 2 [id number] #### [facility] [address] [place] [address] Sodium [Moles/Vol] 138 mmol/L Normal 135-145 [facility] Comment on above: Performed By: #### 2 [id number] #### [facility] [address] [place] [address] Urea nitrogen [Mass/Vol] 26 mg/dL High 5-21 [facility] Comment on above: Performed By: #### 2 [id number] #### [facility] [address] [place] [address] Urea nitrogen/Creatinine [Mass ratio] 17 No Units Normal 10-20 [facility] Comment on above: Performed By: #### 2 238115 #### [facility] [address] [place] [address] Consent for Treatmenton 02-08 Consent for Treatment [id number]#1.0 0TIFF Normal [facility] RbeL2iul 03-08-2024 HbA1c (Bld) [Mass fraction] 6.5 % High <=5.9 [facility] Comment on above: Performed By: #### 7 [id number] #### [facility] [address] [place] [address] eGFRon 03-08-2024 eGFR 48 mL/min/1.73 m2 Low >=59 [facility] Comment on above: Order Comment: Order added by Discern Expert. Performed By: #### 1 [id number] #### [facility] [address] [place] [address] Ambulatory Visit Summaryon 0 03-07-2024 Ambulatory Visit [...] EDT With: Kristofer SCHUSTER, Haider Bee Where: [facility] Medicine [place] Invalid Interpretation Code [address] [place] [address]- \.br \ Monday 9:15 AM EDT \.br\ With: AIDAN SCHUSTER, Araceli Treadwell\.br\ Where: [facility] Family Medicine Office/Clini c Noteon 03-07-2024 Family Medicine Office/Clinic Note HPI Staff Dong is a 73 year old male presenting for infection right leg referral to infectious disease and possible cultures called with info as she's not sure she'll be with her at this appt He was seen at [facility] and is having drg?? end of [...] Ordered: Basic Metabolic Panel Blood Culture Charcoal [facility] External Ambulatory Referral HgbA1c 2. Stage 3a chronic kidney disease (N18.31: Chronic kidney disease, stage 3a) - Will recheck today. - No concerns Ordered: Basic Metabolic Panel Blood Culture Charcoal [facility] External Ambulatory Referral HgbA1c 3. Stasis ulcer (I83.009: Varicose veins of unspecified lower extremity with ulcer of unspecified site) - Most likely the cause of number 1. - No ulcer today Ordered: Basic Metabolic Panel Blood Culture Charcoal [facility] External Ambulatory Referral HgbA1c 4. Morbid obesity with body mass index of 40.0-44.9 in adult (E66.01: Morbid (severe) obesity due to excess calories) - Diet and exercise advsied Ordered: Basic Metabolic Panel Blood Culture Charcoal Body Mass Index (BMI) documented 3008F Current tobacco non-user 1036F Depression Screening Negative 3352F [facility] External Ambulatory Referral HgbA1c Influenza immunization administered [...] Ordered: Basic Metabolic Panel Blood Culture Charcoal [facility] External Ambulatory Referral HgbA1c 6. BMI 40.0-44.9, [...] neuropathy Complex (more content not included)... Normal [facility] Comment on above: Result Comment: Elec tronically Signed By: Kristofer SCHUSTER, Haider Sandhu.br\Date and Time Signed: 03/07/24 11:12 EDT Physician Referralon 024 Physician Referral [id number]#1. 00TIFF [facility] CNOVon 02-29-2024 CNOV Office Visit (PAINMN ) DONG WHITMORE ([id number]) 1950 M Date Time Provider Department 02/29/24 1:30 PM HERBERTH ARAUJO PAINMN During your visit today, we recorded the following information about you: Temperature Pulse Blood pressure Weight 97.4 degrees 62/minute 138/73 122.5 kg Height 1.702 m Herberth Araujo MD, PhD 03/18/2024 7:05 PM Signed [facility] New Patient Consultation Referring Physician: CLAUDINE Chief Complaint: Right third toe pain SUBJECTIVE: Dong Whitmore is a 73 year old male with a pertinent past medical history of diabetes who presents to [facility] for the evaluation of right third toe pain. 15-year history of right third toe pain. He notes that over this time the pain has become increasingly severe has caused him significant discomfort and suffering. He has been to many specialists in the [facility] area-over the course of the past [...] 16th pe (more content not included)... [facility] 02-09-2024 Reminders - From: Vandana Hilton MA (EU - Recalls Aidan) To: [facility] Recalls Aidan; Sent: 02/09/2024 13:50:30 EDT Show up: 06/09/2024 13:50:00 EDT Subject: renal us Reminder/Recall Addendum by Sharla Longoria on January 30, 2024 13:44:48 EDT From: Sharla Longoria (EU - Clinical) To: [facility] Bia Bermudez; Sent: 01/30/2024 13:44:48 EDT Subject: FW: f/u after ESWL -Order for Renal US sent to Due Date/Time: 05/31/2024 13:44:00 EDT Caller Name: DONG WHITMORE; Caller Number: H , B [phone] Addendum by Sharla Longoria on January 30, 2024 13:43:59 EDT Called pt and advised him of below message. Pt voiced understanding. Pt scheduled for 07/17/24 w/ TERRIE. Will send to [facility] recall for TERRIE. Addendum by Araceli BERMUDEZ MD on January 29, 2024 18:12:03 EDT From: Araceli BERMUDEZ MD To: EU - Clinical; Sent: 01/29/2024 18:12:03 EDT Subject: RE: f/u after ESWL -Order for Renal US sent to Caller Name: DONG WHITMORE; Caller Number: H , B [phone] Please let the patient know that the [...] 29, 2024 13:40:04 EDT From: Erica Rossi (PREM - Pending Results) To: Araceli BERMUDEZ MD; Sent: 01/29/2024 13:40:04 EDT Subject: FW: f/u after ESWL -Order for Renal US sent to Caller Name: DONG WHITMORE; Caller Number: H , B [phone] Pt s/p R ESWL 01/03, to get [...] DONG WHITMORE; Caller Number: H , B [phone] Addendum by Nan Hodges MA on January 19, 2024 12:33:50 EDT From: Nan Hodges MA (EU - Pending Results) To: EU - RUPERT/Cook Messages & Refills; Sent: 01/19/2024 12:33:50 EDT Subject: RE: f/u after ESWL -Order for Renal US sent to Due Date/Time: 01/25/2024 12:33:00 EDT Caller Name: DONG WHITMORE; Caller Number: H , B [phone] Scheduled 01/24/24 @ [facility] From: Elena Robbins To: EU - Pending Results; Sent: 01/08/2024 09:17:33 EDT Subject: f/u after ESWL -Order for Renal US sent to Due Date/Time: 01/17/2024 09:17:00 EDT Caller Name: DONG WHITMORE; Caller Number: H , B [phone] Pt is PO R ESWL 01/03 - he is to get renal US in 2 weeks and call for results if we don't contact him 1st - order sent to [facility] Sona 02-06-2024 HERRERAN Telephone (DENICE) DONG WHITMORE ([id number]) 1950 M Date Time Provider Department 02/06/24 FRANCOISE SINGLETARY During your visit today, we recorded the following information about you: Lela Hyatt RN 02/06/2024 10:46 AM Signed ----- Message from Francoise Singletary MD sent at 02/05/2024 3:12 PM EDT ----- Do you mind calling him and giving him the number to schedule at [facility] to discuss DRG? I'd suggest seeking an appointment with the following doctors who perform DRG implantation: Dr. Carlisle, Dr. Araujo, Dr. Dan, Dr. Moo Heard and Dr. Kamara may do DRG - I'm not sure. Thanks Lela! ----- Message ----- From: Livia Lester PA-C Sent: 02/05/2024 2:07 PM EDT To: Francoise Singletary MD No one on this side of [facility] that I know of does DRG so, we also send to [facility] I would just have Lela call the patient and tell him this is not something you do and tell him he needs to be seen a Main ----- Message ----- From: Francoise Singletary MD Sent: 02/05/2024 1:45 PM EDT To: Livia Lester PA-C Nc! He was supposed to get referred for consideration of DRG - the only people I know who do DRG are at [facility]. How do we refer him there? From what I remember, [facility] Melendez Costandi, and Moo do DRG - [...] 1 additional time per the department policy. Thanks, Livia Lester PA-C Allergies As of Date: 02/06/2024 Noted [...] Encounter Status:Closed by LELA HYATT on 02/06/24 [facility] CNOVon 02-05-2024 CNOV Office Visit (PAMGREGGN ) DONG WHITMORE ([id number]) 1950 M Date Time Provider Department 02/05/24 11:30 AM FRANCOISE SINGLETARY During your visit today, we recorded the following information about you: Pulse Blood pressure Weight 80/minute 131/70 124.7 kg Francoise Singletary MD 02/05/2024 3:14 PM Signed [facility] Consultation Date: February [...] seen other pain providers. [facility] Neurology OV 02/01/22 Assessment and Plan 71 [...] year old (more content not included)... Normal [facility] Renalon 01-26-2024 US Renal Exam Date/Time: [...] Transcribed by: GREGORIO Technologist: HW [facility] Consent for Treatmenton 01-07 Consent for Treatment [id number]#1.0 0TIFF [facility] Consultation Noteon 01-22-20 Consultation Note [id number]#1.0 0TIFF [facility] Consultation Note [id number]#1.0 0TIFF [facility] IntraOperative Documentson 0 01-08-2024 IntraOperative Documents [id number]#1.0 0TIFF Normal [facility] Postoperative Documentson Postoperative Documents [id number]#1. 00TIFF Normal [facility] Consent for Anesthesiaon Consent for Anesthesia [id number]#1. 00TIFF Normal [facility] Discharge Instructionson Discharge Instructions [id number]#1. 00TIFF Normal [facility] IntraOperative Documentson 0 01-05-2024 IntraOperative Documents [id number]. 00TIFF Normal [facility] IntraOperative Documents [id number]#1. 00TIFF Normal [facility] Main OR Intraoperative Recor don 01-05-2024 Main OR Intraoperative Record IntraOp Document Type FT Summary Primary Physician: Araceli BERMUDEZ MD Finalized Date/Time: 01/05/24 12:41:56 Pt. Name: DONG WHITMORE/Sex: 1950 Male Med Rec #: [id number] Physician: Araceli BERMUDEZ MD Financial #: [id number] Pt. Type: A Room/Bed: [facility] Admit/Disch: 01/04/24 06:41:12 - 01/04/24 12:00:26 Institution: [...] Loja Role Performed Anesthesiologist Surgeon - Primary Shorthand Teacher - Primary Automotive Specialty Technician Time In 01/04/24 09:07:00 01/04/24 09:07:00 01/04/24 [...] 01/04/24 09:55:45 General Comments: FINN BRAUN - [facility] STUDENT WORKING WITH DR. BERMUDEZ. SCRUBBED [...] X-ray Applicable) PreOp Antibiotic Yes Time Out Gerber HOWE, Augustin Given AIDAN Wahl MD, Araceli Treadwell, Sim Ling, Rukhsana Connors [...] and tissue Entry 1 Skin Integrity Intact, Elma, Warm, and Skin (more content not included)... Normal [facility] Preoperative Documentson Preoperative Documents [id number]#1. 00TIFF Normal [facility] Progress Note-Physicianon Progress Note-Physician Patient: DONG WHITMORE [...] when meets criteria ( To home ). Macario [facility] Comment on above: Result Comment: Elec tronically [...] Problems Vitamin D deficiency / SNOMED CT 23346952 / Confirmed Urgency of urination / SNOMED CT 841745963 / Confirmed Type 2 diabetes mellitus with hyperglycemia, without long-term current use of insulin / ICD-10-CM E11.65 / Confirmed Type 2 diabetes mellitus with peripheral vascular disease / SNOMED CT 357107544 / Confirmed linked DM with PVD per OP CDI policy. Type 2 diabetes mellitus with stage 3a chronic kidney disease and hypertension / SNOMED CT 125349705 / Confirmed linked DM with CKD and HTN per OP CDI policy. 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 Shoulder pain / SNOMED CT 65034611 / Confirmed Renal mass / SNOMED CT 117459520 / Confirmed Psoriasis / SNOMED CT 70643413 / Confirmed PVD (peripheral vascular disease) / SNOMED CT 0218374356 / Confirmed OA (osteoarthritis) / SNOMED CT 5422884961 / Confirmed ULISES (obstructive sleep apnea) / SNOMED CT 291828171 / Confirmed SANTANA (nonalcoholic steatohepatitis) / SNOMED CT 9875179991 / Confirmed Lumbar spondylosis / SNOMED CT 932327555 / Confirmed noted in 10/16/2023 Pain Management Consult Note page 3. added per OP CDI policy. Impotence / SNOMED CT 8545907509 / Confirmed History of kidney stones / SNOMED CT 0068153496 / Confirmed Hiatal hernia / SNOMED CT 533206345 / Confirmed GERD (gastroesophageal reflux disease) / SNOMED CT 905815685 / Confirmed Nerves / SNOMED CT 9499011571 / Confirmed Primary hypertension / SNOMED CT 84017214 / Confirmed Anticoagulated / SNOMED CT 762364081 / Confirmed Complex renal cyst / SNOMED CT 3109932263 / Confirmed Chronic painful diabetic neuropathy / SNOMED CT 6149371532 / Confirmed noted in 10/16/2023 Pain Management Consult Note page 3. added per OP CDI policy. Pain, foot, right, chronic / SNOMED CT 2067699577 / Confirmed noted in 10/16/2023 Pain Management Consult Note page 3. added per OP CDI policy. Chronic bilateral low back pain without sciatica / SNOMED CT 050857672 / Confirmed Stage 3a chronic kidney disease / SNOMED CT 4505327003 / Confirmed Excessive dietary caloric intake / SNOMED CT 503436545 / Confirmed Morbid obesity with body mass index of 40.0-44.9 in adult / SNOMED CT 7553697569 / Confirmed BPH with obstruction/lower urinary tract symptoms / SNOMED CT 2138855259 / Confirmed Anxiety / SNOMED CT 22637396 / Confirmed Allergic rhinitis / SNOMED CT 638125941 / Confirmed Acquired absence of right great toe / SNOMED CT 637734759 / Confirmed added per 07/24/2023 query response. Resolved: Neuropathy / SNOMED CT 6937194943 idiopathic chronic Resolved: Hyperlipidemia / SNOMED CT 05966948 Resolved: Depressed mood / SNOMED CT 766359822 Resolved: Amputation of toe of right foot / ICD-10-CM S98.131A Resolved: BPH - benign prostatic hyperplasia / SNOMED CT 3148113427 Resolved: Anxiety disorder / SNOMED CT 427299680 Canceled: Microscopic hematuria / SNOMED CT 835814671 Canceled: Kidney stone / IMO 44726 Canceled: Hypertension / SNOMED CT 4407744929 Canceled: HLD (hyperlipidemia) / SNOMED CT 22723652 Canceled: Glycosuria / SNOMED CT 34969655 Canceled: Diabetes / SNOMED CT 452055993 Histories Procedure history: TOE AMPUTATION on 11/16/2018 at 68 Years. Cysto, Lt retrogrades, Lt stent, Ureteral cath, Lt ESWL ([id number]) on 06/07/2018 at 67 Years. Comments: 06/21/2019 14:34 EDT - Marilynn Zhang MA Cysto, Lt retr (more content not included)... Normal [facility] Comment on above: Result Comment: Elec tronically [...] GREGORIO Technologist: BARAK Technical Comments Radiation Dose: Kar in mGy = na DAP = na Normal [facility] Capillary Glucose POCon 12-08 Glucose [Mass/Vol] 133 mg/dL High 55-99 [facility] Comment on above: Performed By: #### 2 [id number] #### [facility] [address] [place] [address] Consent for Procedure/Surger yon 01-04-2024 Consent for Procedure/Surgery [id number]#1. 00TIFF Normal [facility] Consent for Treatmenton 12-08 Consent for Treatment [id number]#1.0 0TIFF [facility] Discharge Instructionson Discharge Instructions DONG WHITMORE [...] Araceli BERMUDEZ MD Where: [facility] Invalid Interpretation Code [address] [place] [address]- \.br \ Monday 9:30 AM EDT \.br\ With:\.br\ Where: [facility] [place] Comment on above: Result Comment: Elec tronically Signed By: Rakel Barney RN\.br\Date and Time Signed: 01/04/24 10:37 EDT H&P Updateon 01-04-2024 H&P Update [id number]#1. 00TIFF Normal [facility] Inpatient Patient Summaryon 01-04-2024 Inpatient Patient Summary [place] [id number] [facility] Clinical Discharge Instructions PERSON INFORMATION Name: DONG WHITMORE [facility]#:[id number] PHYSICIANS Admitting Physician: Araceli BERMUDEZ MD Attending Physician: Araceli BERMUDEZ MD PCP: Haider Hickman MD Discharge Diagnosis: Comment: PATIENT EDUCATION INFORMATION Instructions: Lithotripsy, Care After Medication Leaflets: Follow up: With: Address: When: Araceli BERMUDEZ [address] [place] [address], [address], [place] [phone] Business (1) Comments: Please call my office [...] for follow-up With: Address: When: [place] [address] [address] [address] Business (1) Type Location Start Finish State [place] Office Visit [facility] [place] 03/13/2024 9:45 AM 03/13/2024 10:00 AM [facility]irmed [facility] 2:15 PM 03/26/2024 2:30 PM Confirmed FM Medicare Wellness Subsequent [facility] FM [place] 05/13/2024 9:30 AM 05/13/2024 10:30 AM Confirmed [facility] 11[facility]06/[facility] 10:30 AM 11/06/2024 10:45 AM Confirmed MEDICATION LIST New Medications [id number], [address], [place] [id number], [phone] acetaminophen-hydrocod one (acetaminophen-hydroco done 325 mg-5 mg [...] Tablets By Mouth every day. Comment: Normal [facility] Main OR PACU I Recordon 12-08 Main OR PACU I Record PACU Phase I Document Type FT Summary Primary Physician: Araceli BERMUDEZ MD Finalized Date/Time: 01/04/24 10:17:21 Pt. Name: DONG WHITMORE Boom Hurd./Sex: 1950 Male Med Rec #: [id number] Physician: Araceli BERMUDEZ MD Financial #: [id number] Pt. Type: A Room/Bed: [facility] Admit/Disch: 01/04/24 06:41:12 - Institution: Case Times [...] By: Sangita Ross RN 01/04/24 10:17 Normal [facility] Main OR PACU II Recordon Main OR PACU II Record PACU Phase II Document Type FT Summary Primary Physician: Araceli BERMUDEZ MD Finalized Date/Time: 01/04/24 12:01:26 Pt. Name: DONG WHITMORE/Sex: 1950 Male Med Rec #: [id number] Physician: Araceli BERMUDEZ MD Financial #: [id number] Pt. Type: A Room/Bed: [facility]/ Admit/Disch: 01/04/24 06:41:12 - 01/04/24 12:00:26 Institution: [...] Rakel Barney RN 01/04/24 12:01 [facility] Main OR Preoperative Recordo n 01-04-2024 Main OR Preoperative Record PreOp Document Type FT Summary Primary Physician: Araceli BERMUDEZ MD Finalized Date/Time: 01/04/24 09:57:43 Pt. Name: DONG WHITMORE/Sex: 1950 Male Med Rec #: [id number] Physician: Araceli BERMUDEZ MD Financial #: [id number] Pt. Type: A Room/Bed: [facility]/ Admit/Disch: 01/04/24 06:41:12 - Institution: Case Times [...] Signed By: Sim Ling 01/04/24 09:57 Normal [facility] Monitor Recordon 01-04-2024 Monitor Record [id number]#1. 00TIFF Normal [facility] Operative Reporton Operative Report Patient: DONG WHITMORE [...] placed per urethra and a well-lubricated 22 Chinese is urethroscope with 30 degree lens then [...] pyelogram was then performed utilizing a 6 Chinese open-ended ureteral catheter. The ureter is normal [...] keep the stone in view. Utilizing the Jooce Lithostar lithotripter, 1500 shocks were given up to 3.2 power level per protocol. Difficult to tell whether there was good stone fragmentation or not secondary to the patient's body habitus and the fact that this may be a uric acid calculus. He tolerates it well. Upon completion of the procedure the ureteral catheter was removed and he was transferred to the [place] and then back to PACU in satisfactory condition, stable vital signs. Plan to be for discharge home with plans for a follow-up kidney ultrasound within the next couple weeks. Prescription sent to pharmacy for doxycycline for antibiotic prophylaxis as well as 7 pills of [place] 5/325. She was in agreement with the plan. . Estimated Blood Loss: 0 ml. Complications: None. Anesthesia type: General. Normal [facility] Comment on above: Result Comment: Elec tronically Signed By: AIDAN SCHUSTER, Araceli Treadwell\.cyrus\Date and Time Signed: 01/04/24 10:09 EDT Outpatient Surgery Discharge Instructionon 01-04-2024 Outpatient Surgery Discharge Instruction [place] [id number] Patient Discharge Instructions PERSON INFORMATION Name: DONG [...] NEAREST EMERGENCY ROOM OR CALL 911 I, DONG WHITMORE, have received the attached patient education materials/instructions and have verbalized understanding: May we do a follow up call? Yes No I was present when discharge instructions were given Patient Signature Date Clinican/Nurse Signature ___ Date Follow up: With: Address: When: Araceli BERMUDEZ [facility] [address], [address], [place] [phone] Business (1) Comments: Please call my office [...] for follow-up With: Address: When: [place] [address] [address] [address] Business (1) Type Location Start Finish State [place] Office Visit [facility] Whittaker 03/13/2024 9:45 AM 03/13/2024 10:00 AM Confirmed FM Open [facility] Jessie 03/26/2024 2:15 PM 03/26/2024 2:30 PM Confirmed FM Medicare Wellness Subsequent [facility] Jessie 05/13/2024 9:30 AM 05/13/2024 10:30 AM Confirmed [place] Office Visit [facility] Whittaker 11/06/2024 10:30 AM 11/06/2024 10:45 [...] to serve you. Thank you for choosing [facility] HERE ARE THE MEDICATION CHANGES THAT OCCURRED DURING YOUR HOSPITAL STAY New Medications [id number], [address], [place] [phone], [phone] acetaminophen-hydrocod one (acetaminophen-hydroco done 325 mg-5 mg [...] care p (more content not included)... Normal [facility] PT - Progress Noteson 2023 PT - Progress Notes [id number]#1.0 0TIFF Normal [facility] Patient Education - Texton 0 01-04-2024 Patient [...] these instructions at home: Medicines ? Take wvoe-nmo-knkufpi and prescription medicines only as told by [...] forming. ? (more content not included)... Normal [facility] Physician Referralon 024 Physician Referral [id number]#1. 00TIFF Normal [facility] Physician Referral [id number]#1. 00TIFF Normal [facility] BMPon 12-29-2023 Anion gap [Moles/Vol] 13 mmol/L Normal 6-16 [facility] Comment on above: Performed By: #### 2 100035, 2062460, 07758717, 10966709 #### [facility] [address] [place] [address] Calcium [Mass/Vol] 9.1 mg/dL Normal 8.9-11.1 [facility] Comment on above: Performed By: #### 2 321828, 9405422, 31198362, 69772670 #### [facility] [address] [place] [address] Chloride [Moles/Vol] 106 mmol/L Normal 101-111 [facility] Comment on above: Performed By: #### 2 156047, 1166247, 48941974, 68481101 #### [facility] [address] [place] [address] CO2 [Moles/Vol] 25 mmol/L Normal 21-31 [facility] Comment on above: Performed By: #### 2 503381, 6229689, 30054901, 89574924 #### [facility] [address] [place] [address] Creatinine [Mass/Vol] 1.2 mg/dL Normal 0.5-1.3 [facility] Comment on above: Performed By: #### 2 124974, 1669603, 48402705, 16623186 #### [facility] [address] [place] [address] Glucose [Mass/Vol] 145 mg/dL Normal 55-199 [facility] Comment on above: Performed By: #### 2 179547, 6490504, 79336990, 82962534 #### [facility] [address] [place] [address] Potassium [Moles/Vol] 3.8 mmol/L Normal 3.5-5.3 [facility] Comment on above: Performed By: #### 2 588275, 7504622, 84617986, 48224751 #### [facility] [address] [place] [address] Sodium [Moles/Vol] 140 mmol/L Normal 135-145 [facility] Comment on above: Performed By: #### 2 930570, 7289570, 83854396, 58951267 #### [facility] [address] [place] [address] Urea nitrogen [Mass/Vol] 25 mg/dL High 5-21 [facility] Comment on above: Performed By: #### 2 546264, 8090991, 79982017, 38391762 #### [facility] [address] [place] [address] Urea nitrogen/Creatinine [Mass ratio] 21 No Units High 10-20 [facility] Comment on above: Performed By: #### 2 677829, 9184807, 56180369, 00443083 #### [facility] [address] [place] [address] CBC w/ Auto Diffon 4 Basophils/100 WBC (Bld) 0.5 % Normal 0.0-2.0 [facility] Comment on above: Performed By: #### 2 537810, 8793747, 13913417, 45885233 #### [facility] [address] [place] [address] Basophils/Leukocytes Auto (Bld) [Pure # fraction] 0.0 E9/L Normal 0.0-0.2 [facility] Comment on above: Performed By: #### 2 576393, 3548967, 40987605, 63779249 #### [facility] [address] [place] [address] Eosinophils (Bld) [#/Vol] 0.3 E9/L Normal 0.0-0.5 [facility] Comment on above: Performed By: #### 2 253669, 2956873, 88505391, 35481964 #### [facility] [address] [place] [address] Eosinophils/100 WBC (Bld) 5.7 % Normal 0.0-8.0 [facility] Comment on above: Performed By: #### 2 125561, 9278378, 73548295, 77757503 #### [facility] [address] [place] [address] Erythrocyte distribution width (RBC) [Ratio] 14.6 % High 10.9-14.2 [facility] Comment on above: Performed By: #### 2 859338, 9508954, 81240372, 98289657 #### [facility] [address] [place] [address] Hematocrit (Bld) [Volume fraction] 38.3 % Normal 37.7-49.0 [facility] Comment on above: Performed By: #### 2 394294, 8877821, 56228778, 23934098 #### [facility] [address] [place] [address] Hemoglobin (Bld) [Mass/Vol] 12.8 g/dL Low 13.5-17.5 [facility] Comment on above: Performed By: #### 2 120372, 6827730, 74170293, 16138656 #### [facility] [address] [place] [address] Lymphocytes (Bld) [#/Vol] 0.9 E9/L Low 1.0-4.0 [facility] Comment on above: Performed By: #### 2 996329, 2316509, 18909587, 38620841 #### [facility] [address] [place] [address] Lymphocytes/100 WBC (Bld) 17.1 % Normal 14.0-50.0 [facility] Comment on above: Performed By: #### 2 310581, 8632856, 69100605, 89649489 #### [facility] [address] [place] [address] MCH (RBC) [Entitic mass] 28.1 pg Normal 27.0-34.0 [facility] Comment on above: Performed By: #### 2 005704, 9138359, 97305363, 23512571 #### [facility] [address] [place] [address] MCHC (RBC) [Mass/Vol] 33.4 g/dL Normal 31.4-36.0 [facility] Comment on above: Performed By: #### 2 818628, 2034784, 16072975, 05708883 #### [facility] [address] [place] [address] MCV (RBC) [Entitic vol] 84.1 fL Normal 80.0-100.0 [facility] Comment on above: Performed By: #### 2 299431, 9112682, 42604880, 43847581 #### [facility] [address] [place] [address] Monocytes (Bld) [#/Vol] 0.4 E9/L Normal 0.2-1.0 [facility] Comment on above: Performed By: #### 2 373021, 4027605, 69542621, 60027740 #### [facility] [address] [place] [address] Neutrophils (Bld) [#/Vol] 3.9 E9/L Normal 2.0-7.5 [facility] Comment on above: Performed By: #### 2 952859, 4003283, 60745575, 29892856 #### [facility] [address] [place] [address] Neutrophils/100 WBC (Bld) 69.6 % Normal 36.0-75.0 [facility] Comment on above: Performed By: #### 2 767719, 2070692, 53509498, 32219004 #### [facility] [address] [place] [address] Platelet 178.0 E9/L Normal 150.0-500.0 [facility] Comment on above: Performed By: #### 2 221311, 8331255, 54654643, 95465374 #### [facility] [address] [place] [address] Platelet mean volume (Bld) [Entitic vol] 8.4 fL Normal 6.4-10.8 [facility] Comment on above: Performed By: #### 2 052865, 8676769, 24360510, 43210591 #### [facility] [address] [place] [address] RBC (Bld) [#/Vol] 4.6 E12/L Normal 4.3-5.9 [facility] Comment on above: Performed By: #### 2 156042, 0827064, 48289237, 98789980 #### [facility] [address] [place] [address] WBC corrected for nucl RBC Auto (Bld) [#/Vol] 5.5 E9/L Normal 4.0-11.0 [facility] Comment on above: Performed By: #### 2 291388, 1859019, 05981258, 71184479 #### [facility] [address] [place] [address] Consent for Treatmenton 12-08 Consent for Treatment [id number] 0TIFF Normal [facility] PT & PTTon 12-29-2023 aPTT Coag (PPP) [Time] 35.7 second(s) Normal 25.1-36.5 [facility] Comment on above: Result Comment: Para meter 15 days - 4 weeks 1 - 5 months 6 - 11 months 1 - 5 years 6 - 10 years 11 - 17 years PTT Mean: 35.4 (27.6-45.6) Mean: 33.5 (24.8-40.7) Mean: 32.4 (25.1-40.7) Mean: 31.6 (24.0-39.2) Mean: 31.6 (26.9-38.7) Mean: 31.0 (24.6-38.4) Pediatric Reference ranges were obtained from a study by Tyson Egypt, et al. prepared from 1437 samples obtained at 7 different centers using the same coagulation reagent and instrumentation as [facility]. Currently there are no coagulation studies available worldwide for children to 14 days, and no normal ranges. Heparin therapeutic range (represented by Anti-Factor Xa activity of 0.2 - 0.4 U/mL) corresponds to PTT of 56.6 - 109.0 sec. Performed By: #### 2 526932, 5734252, 50719142, 49660754 #### [facility] [address] [place] [address] INR Coag (PPP) [Relative time] 1.23 {INR} Invalid Interpretation Code [facility] Comment on above: Result Comment: INR results are specifically intended to assess patients stabilized on long-term Anticoagulation therapy suggested INR?s ?Less Intensive Anticoagulation? 2.0 ? 3.0 Conventional Range 3.0 ? 4.5 Performed By: #### 2 243373, 1286106, 54735245, 98162915 #### [facility] [address] [place] [address] PT Coag (PPP) [Time] 13.8 second(s) High 9.4-12.5 [facility] Comment on above: Result Comment: 15 d [...] the same coagulation reagent and instrumentation as [facility]. Currently there are no coagulation studies available worldwide for children to 14 days, and no normal ranges. Performed By: #### 2 761409, 5217119, 38099097, 47844248 #### [facility] [address] [place] [address] UA with Cult Rflxon 12-29-19 24 Color (U) Light-Yellow Normal Yellow [facility] Comment on above: Result Comment: Micr oscopic readings are only performed on those samples that meet specific criteria set forth by [facility]. Performed By: #### 4 [id number] ####[facility] [address] [place] [address] Glucose (U) [Mass/Vol] Negative Normal Negative [facility] Comment on above: Performed By: #### 4 683968636 ####[facility] [address] [place] [address] Ketones Ql (U) Negative Normal Negative [facility] Comment on above: Performed By: #### 4 088586832 ####[facility] [address] [place] [address] UA Blood Negative Normal Negative [facility] Comment on above: Performed By: #### 4 408584469 ####[facility] [address] [place] [address] UA Clarity Clear Normal Clear [facility] Comment on above: Performed By: #### 4 279169691 ####[facility] [address] [place] [address] UA Leuk Est Negative Normal Negative [facility] Comment on above: Performed By: #### 4 374068843 ####[facility] [address] [place] [address] UA Nitrite Negative Normal Negative [facility] Comment on above: Performed By: #### 4 557614747 ####[facility] [address] [place] [address] UA pH 6.5 Invalid Interpretation Code 5.0-9.0 [facility] Comment on above: Performed By: #### 4 683190547 ####[facility] [address] [place] [address] UA Protein Trace Abnormal Negative [facility] Comment on above: Performed By: #### 4 186324425 ####[facility] [address] [place] [address] UA Spec Grav 1.021 Invalid Interpretation Code 1.005-1.030 [facility] Comment on above: Performed By: #### 4 520359698 ####[facility] [address] [place] [address] UA Urobilinogen Negative Normal Negative [facility] Comment on above: Performed By: #### 4 001813710 ####[facility] [address] [place] [address] Urobilinogen (U) [Mass/Vol] Negative Normal Negative [facility] Comment on above: Performed By: #### 4 847685804 ####[facility] [address] [place] [address] UA Spec Desc Clean Catch Normal [facility] Comment on above: Performed By: #### 4 [id number] ####[address] [address] XR Chest 2 Viewson XR Chest 2 Views Exam Date/Time: 12/29/2023 09:35 EDT Reason for Exam: P.A.T. Report [facility] [phone] IMPRESSION: No acute infiltrates or effusions, no [...] mGy = na DAP = na Normal [facility] eGFRon 12-29-2023 eGFR 63 mL/min/1.73 m2 Normal >=59 [facility] Comment on above: Order Comment: Order added by Discern Expert. Performed By: #### 2 395676, 6096530, 30606568, 59745427 #### [facility] [address] [place] [address] Family Medicine Office/Clini c Noteon 12-28-2023 Family [...] (12/05/2016), ysto, (more content not included)... Normal [facility] Comment on above: Result Comment: Elec tronically Signed By: Kristofer SCHUSTER, Haider Bee\.br\Date and Time Signed: 12/28/23 09:51 EDT Physician Orderon 12-28-2023 Physician Order [id number] 0TIFF [facility] Ambulatory Visit Summaryon 0 12-26-2023 Ambulatory Visit Summary HAIM DONG Boom :1950 Visit Date:12/26/2023 Ambulatory Visit [...] SCHUSTER, Araceli Treadwell Where: [facility] Invalid Interpretation Code [address] [place] [address]- \.br \ Monday 9:30 AM EDT \.br\ With:\.br\ [facility]: [facility] Albumin [Mass/Vol] 4.2 g/dL Normal 3.3-5.0 [facility] Comment on above: Performed By: #### 2 959871, 1753920, 45079852, 9640739 ####[facility] [address] [place] [address] Albumin/Globulin (S) [Mass conc ratio] 1.6 Normal 1.1-2.2 [facility] Comment on above: Performed By: #### 2 888353, 4042081, 91383910, 9831299 ####[facility] [address] [place] [address] ALP [Catalytic activity/Vol] 67 Int._Unit/L Normal 21-98 [facility] Comment on above: Performed By: #### 2 091651, 8919601, 56635207, 1823029 ####[facility] [address] [place] [address] ALT No additional P-5'-P [Catalytic activity/Vol] 20 Int._Unit/L Normal 6-46 [facility] Comment on above: Performed By: #### 2 835266, 5297474, 60454662, 3753865 ####[facility] [address] [place] [address] Anion gap [Moles/Vol] 10 mmol/L Normal 6-16 [facility] Comment on above: Performed By: #### 2 715969, 9887127, 04832712, 6297149 ####[facility] [address] [place] [address] AST [Catalytic activity/Vol] 21 Int._Unit/L Normal 5-43 [facility] Comment on above: Performed By: #### 2 209768, 6898481, 16744289, 6080452 ####[facility] [address] [place] [address] Bilirubin [Mass/Vol] 0.6 mg/dL Normal 0.0-1.1 [facility] Comment on above: Performed By: #### 2 275170, 8214904, 17990164, 2740609 ####[facility] [address] [place] [address] Calcium [Mass/Vol] 9.3 mg/dL Normal 8.9-11.1 [facility] Comment on above: Performed By: #### 2 812297, 2993074, 55980158, 6649016 ####[facility] [address] [place] [address] Chloride [Moles/Vol] 105 mmol/L Normal 101-111 [facility] Comment on above: Performed By: #### 2 650951, 4290960, 57014877, 0110173 ####[facility] [address] [facility] [place] [address] CO2 [Moles/Vol] 27 mmol/L Normal 21-31 [facility] Comment on above: Performed By: #### 2 076814, 1797598, 25991136, 3972370 ####[facility] [address] [facility] [place] [address] Creatinine [Mass/Vol] 1.3 mg/dL Normal 0.5-1.3 [facility] Comment on above: Performed By: #### 2 420990, 3958755, 24656784, 3960812 ####[facility] [address] [place] [address] Globulin (S) [Mass/Vol] 2.6 g/dL Normal 1.4-4.0 [facility] Comment on above: Performed By: #### 2 799034, 8851498, 84985429, 1270063 ####[facility] [address] [place] [address] Glucose [Mass/Vol] 135 mg/dL Normal 55-199 [facility] Comment on above: Performed By: #### 2 314860, 4787506, 19866079, 8860842 ####[facility] [address] [place] [address] Potassium [Moles/Vol] 4.1 mmol/L Normal 3.5-5.3 [facility] Comment on above: Performed By: #### 2 905406, 4792037, 67973157, 2953830 ####[facility] [address] [place] [address] Protein [Mass/Vol] 6.8 g/dL Normal 6.0-7.8 [facility] Comment on above: Performed By: #### 2 718196, 8299236, 40104883, 1943156 ####[facility] [address] [place] [address] Sodium [Moles/Vol] 138 mmol/L Normal 135-145 [facility] Comment on above: Performed By: #### 2 221242, 0810962, 53236723, 2919052 ####[facility] [address] [place] [address] Urea nitrogen [Mass/Vol] 27 mg/dL High 5-21 [facility] Comment on above: Performed By: #### 2 897419, 1994579, 02540086, 9043900 ####[facility] [address] [place] [address] Urea nitrogen/Creatinine [Mass ratio] 21 No Units High 10-20 [facility] Comment on above: Performed By: #### 2 694145, 4762772, 59947002, 1998154 ####[facility] [address] [place] [address] Lipid Panelon 12-26-2023 Cholesterol [Mass/Vol] 118 mg/dL Low 120-200 [facility] Comment on above: Performed By: #### 2 901185, 7375101, 46206071, 4982169 ####[facility] [address] [place] [address] Cholesterol in HDL [Mass/Vol] 33 mg/dL Invalid Interpretation Code [facility] Comment on above: Result Comment: '>= 60 LOW RISK' '<= 40 HIGH RISK' Performed By: #### 2 783321, 2518985, 50648130, 3578383 ####[facility] [address] [place] [address] Cholesterol in LDL [Mass/Vol] 57 mg/dL Normal <=129 [facility] Comment on above: Performed By: #### 2 153913, 3909814, 59555415, 5065526 ####[facility] [address] [place] [address] Cholesterol in VLDL [Mass/Vol] 45 mg/dL High 7-40 [facility] Comment on above: Performed By: #### 2 179593, 5485701, 04046342, 9328487 ####[facility] [address] [place] [place] [address] Triglyceride [Mass/Vol] 225 mg/dL High <=149 [facility] Comment on above: Performed By: #### 2 991946, 0248098, 55486062, 2858140 ####[facility] [address] [facility] [place] [place] [address] U Microalbon 12-26-2023 Albumin DL <= 20 mg/L (U) [Mass/Vol] 5.8 mg/dL High 0.0-1.9 [facility] Comment on above: Performed By: #### 1 [id number], 55526462 ####[facility] [address] [place] [place] [address] U Protein/Creat Ratioon 12-07 Protein/Creatinine (U) [Ratio] 20.90 mg/gm Cr Normal .00-200.00 [facility] Comment on above: Performed By: #### 1 [id number], [id number] ####[facility] [address] [place] [place] [address] U Creatinine 99.4 mg/dL Invalid Interpretation Code [facility] Comment on above: Performed By: #### 1 [id number], [id number] ####[facility] [address] [place] [address] Ur Total Protein 20.8 mg/dL Invalid Interpretation Code [facility] Comment on above: Performed By: #### 1 [id number], 52529621 ####[facility] [address] [place] [address] Vit B12on 12-26-2023 Cobalamin (Vitamin B12) [Mass/Vol] 348 pg/mL Normal 50-1500 [facility] Comment on above: Performed By: #### 2 233419, 9264630, 45210391, 8245852 ####[facility] [address] [place] [address] eGFRon 12-26-2023 eGFR 57 mL/min/1.73 m2 Low >=59 [facility] Comment on above: Order Comment: Order added by Discern Expert. Performed By: #### 2 173202, 0355659, 14203649, 2234742 ####[facility] [address] [place] [address] Pre-Visit Planningon 024 Pre-Visit Planning - From: Ceci Yu To: Haider Hickman MD; Sent: 12/20/2023 09:56:36 EDT Subject: Pre-Visit Planning Due Date/Time: 12/20/2023 09:56:00 EDT Caller Name: DONG WHITMORE; Caller Number: H , B [phone] Nc Dr. Hickman. During a pre-visit planning [...] feel free to contact me at extension [phone]. Thank you! 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 Normal [address] [place] [address] Consultation Noteon 12-08-19 Consultation Note [id number]#1.0 0TIFF Normal [facility] RAD - MISCon 11-14-2023 RAD - MISC [id number]#1.0 0TIFF Normal [facility] RAD - Ultrasound Reporton RAD - Ultrasound Report [id number]#1.0 0TIFF Normal [facility] RAD - Ultrasound Report [id number]#1.0 0TIFF Normal [facility] RAD - MISCon 10-30-2023 RAD - MISC [id number] 06 [id number]#1.00 TIFF Normal [facility] RAD - MRI Reporton RAD - MRI Report [id number] 06 [id number]#1.00 TIFF Normal [facility] Screenson 10-20-2023 Screens [id number]#1. 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 Your Care Team Attending Physician - Araceli BERMUDEZ MD Primary Care Physician - Haider Hickman MD. This Is Your Medications List sodium bicarbonate [...] EDT With: Kristofer SCHUSTER, Haider Bee Where: [facility] [place] Invalid Interpretation Code [address] [place] [address]- \.br \ Monday 10:30 AM EST \.br\ With: Araceli BERMUDEZ MD\.br\ Where: [facility] Patient Educationon 10-18-19 Patient Education [...] ? 8 oz (237 mL) of milk, awqnoil-pvifnuexyygx-g airy milk, and calcium-fortifiedfruit juice. Calcium-fortified means [...] Spinach (cooked), rhubarb, beets, sweet potatoes, and Ghanaian chard. ? Peanuts. ? Potato chips, andorran fries, and baked potatoes with skin on. ? Nuts and nut products. ? Chocolate. ? If you regularly take a diuretic medicine, make sure to eat at least 1 or 2 servings of fruits or vegetables that are high in potassium each day. These include: ? Avocado. ? Banana. ? [place], prune, carrot, or tomato juice. ? Baked [...] fish oil, or vitamin B6. ? Take pral-avr-pmtwaxr and prescription medicines only as told by your health care provider. These include supplements. What foods sh (more content not included)... [facility] Reminderson 10-18-2023 Reminders - From: Roya Álvarez To: PREM Bermudez; Sent: 10/18/2023 15:39:39 EST Show up: 08/18/2024 15:39:00 EST Subject: Renal US Due Date/Time: 09/17/2024 15:39:00 EST Pt needs scheduled for TERRIE prior to 1 year appointment. Being done at [facility]. order placed. [facility] Urology Office/Clinic Noteon 10-18-2023 Urology Office/Clinic [...] with voice recognition artificial intelligence software, specifically [employer] and or [employer]. Substitutions may have occurred due to the [...] Information AIDAN SCHUSTER, Araceli Tread[place], URL [address] [place], [place] [id number]- Additional Instructions: 1 year w/ renal US [...] benign pr (more content not included)... Normal [facility] Comment on above: Result Comment: Elec tronically [...] recent A1c level, as measured by his dog or animal sitter, was 6.9%. Review of Systems PHQ Score [...] with voice recognition artificial intelligence software, specifically Zarfo, [employer] and or [employer]. Substitutions may have occurred due to the inherent limitations of voice recognition and artificial intelligence software. ATTESTATION: Documentation services were performed after patient or guardian consented to allow [employer] to record this visit. HEMANTH public relations specialist and provider reviewed before signing. HEMANTH: [...] under fluo (more content not included)... Normal [facility] Comment on above: Result Comment: Elec tronically [...] SCHUSTER, Araceli Treadwell Where: [facility] [place] Invalid Interpretation Code [address] [place] [address]- \.br \ Monday 9:30 AM EDT \.br\ With:\.br\ Where: [facility] [place] Consultation Noteon 09-18-20 Consultation Note [id number]#1.0 0TIFF Normal [facility] A1C with Estimated Average G luostephanie 09-11-2023 HbA1c (Bld) [Mass fraction] 6.900 % High 4.3-5.6 % [facility] Other HbA1c (Bld) [Mass fraction] 151 mg/dL [facility] Other Glucose [Mass/Vol] 151 mg/dL Normal [facility] Comment on above: Order Comment: Reaso n for Exam Type 2 diabetes mellitus with diabetic chronic kidney diseas Result Comment: PERF ORMED BY: [place] [address] PATHOLOGIST GENETIC COUNSELOR CHRISTINA MOYA M.D. Performed By: #### A 1C WT eA #### [facility] [address] [place], [place] [id number] [facility] HbA1c (Bld) [Mass fraction] 6.9 % High 4.3-5.6 [facility] Comment on above: Order Comment: Reaso n for Exam Type 2 diabetes mellitus with diabetic chronic kidney diseas Result Comment: Incr eased risk for diabetes: 5.7 - 6.4 diabetes: >6.4 glycemic control for adults with diabetes: <7.0 Performed By: #### A 1C WT eA #### [facility] [address] [id number] [place] Glucose - FINGER STICKon Glucose [Mass/Vol] 138 mg/dL [facility] Other Glucose mean value [Mass/vol ume] in Blood Estimated from glycated hemoglobinOrdered By: Aldo Middleton on 09-11-2023 Average glucose Estimated from glycated hemoglobin (Bld) [Mass/Vol] 151 mg/dL [facility] Hemoglobin A1c percentageOrd ered By: Aldo Middleton on 09-11-2023 HbA1c (Bld) [Mass fraction] 6.9 % 4.3-5.6 [facility] Comment on above: Increased risk for d iabetes: 5.7 - 6.4diabetes: >6.4glycemic control for adults with diabetes: <7.0 Consultation Noteon 09-06-20 Consultation Note [id number]#1.00 TIFF Normal [facility] Consultation Noteon 08-28-20 Consultation Note [id number]#1.00 TIFF Normal [facility] US UNI ankle/arm indiceson 1 10-24-2022 US UNI ankle/arm indices [facility] [place] [address] Ultrasound Report Signed Patient: Dong Whitmore MR#: [id number] : 1950 Acct:[id number] Age/Sex: 73 / M ADM Date: 08/24/23 Loc: [facility] Room: Type: [facility] Attending Dr: Eligio Soni MD Ordering Provider: [...] Eligio Soni MD08/24/2023 3:31 PM Dictation Location: [id number] Tech: Britney Sotelo Transcribed By: CIRO 08/24/231530 Dictated By: Eligio Soni MD 08/24/231529 Signed By: 08/24/231530 [facility] US venous duplex LE RTon US venous duplex LE RT [facility] [place] [address] Ultrasound Report Signed Patient: Dong Whitmore MR#: [id number] : 1950 Acct:[id number] Age/Sex: 73 / M ADM Date: 08/24/23 Loc: [facility] Room: Type: [facility] Attending Dr: Eligio Soni MD Ordering Provider: [...] Eligio Soni MD08/24/2023 3:31 PM Dictation Location: [id number] Tech: Coby Gibson Transcribed By: CIRO 08/24/231530 Dictated By: Eligio Soni MD 08/24/231530 Signed By: 08/24/231530 [facility] Ambulatory Visit Summaryon 1 10-21-2023 Ambulatory Visit Summary DONG WHITMORE :1950 Visit [...] EST With: Kristofer SCHUSTER, Haider Bee Where: [facility] Invalid Interpretation Code [address], [address] [place] [address]- \.br \ Monday 9:30 AM EDT \.br\ With:\.br\ Where: [facility] Medicine Office/Clini c Noteon 08-21-2023 Family Medicine [...] kidney d (more content not included)... Normal [facility] Comment on above: Result Comment: Elec tronically [...] oz glass (more content not included)... Normal [facility] Pre-Visit Planningon 023 Pre-Visit Planning - From: Ceci Yu To: Haider Hickman MD; Sent: 08/17/2023 10:44:28 EST Subject: Pre-Visit Planning Due Date/Time: 08/17/2023 10:44:00 EST Caller Name: DONG WHITMORE; Caller Number: H , B [phone] Nc Dr. Hickman. During a pre-visit planning [...] feel free to contact me at extension [phone]. Thank you! Ceci Yu LPN Invalid Interpretation Code 272 [facility] Consultation Noteon 08-10-20 Consultation Note [id number]#1.0 0TIFF Normal [facility] Family Medicine Office/Clini c Noteon 07-26-2023 Family [...] continue to monitor along. Ordered: A1c POC 81771 Body Mass Index (BMI) documented 3008F Current [...] disease) - As above Ordered: A1c POC 54589 Body Mass Index (BMI) documented 3008F Current [...] stage 3a) - Stable Ordered: A1c POC 20588 Body Mass Index (BMI) documented 3008F Current [...] - No new issues Ordered: A1c POC 68088 Body Mass Index (BMI) documented 3008F Current [...] - BMI education given Ordered: A1c POC 03919 Body Mass Index (BMI) documented 3008F Current [...] last ye (more content not included)... Normal [facility] Comment on above: Result Comment: Elec tronically Signed By: Kristofer SCHUSTER, Haider Sandhu.br\Date and Time Signed: 07/26/23 11:59 EDT Patient [...] numbers. This can be done either in American (U.S.) or metric measurements. Note that charts and online BMI calculators are available to help you find your BMI quickly and easily without having to do these calculations yourself. To calculate your BMI in American (U.S.) measurements: 1. Measure your weight in [...] for Disease Control and Prevention: www.cdc.gov ? [place] Heart Association: www.heart.org ? National Heart, Lung, and Blood [place]: www.nhlbi.nih.gov Summary ? Body mass index (BMI) is a number that is calculated from a person's weight and height. ? BMI may help estimate how much of a person's weight is composed of fat. BMI can help identify those who may be at higher risk for certain medical problems. ? BMI can be measured using American measurements or metric measurements. ? BMI charts are used to identify whether you are underweight, normal weight, overweight, or obese. This information is not intended to replace advice given to you by your health care provider. Make sure you discuss any questions you have with your health care provider. Document Revised: 06/17/2020 Document Reviewed: 04/24/2020 Elsevier Patient Education ? 2022 Queue-it. [facility] Physician Referralon 023 Physician Referral [id number]#1. 00TIFF [facility] Pre-Visit Planningon 023 Pre-Visit Planning - From: Ceci Yu To: Haider Hickman MD; Sent: 07/24/2023 15:20:33 EDT Subject: Pre-Visit Planning Due Date/Time: 07/24/2023 15:20:00 EDT Caller Name: DONG WHITMORE; Caller Number: H , B [phone] Hi Dr. Hickman. During a pre-visit planning [...] feel free to contact me at extension [phone]. Thank you! Ceci Yu LPN From: Kristofer SCHUSTER, Haider Bee To: Aimee, Ceci M; Sent: 07/24/2023 16:58:10 EDT Subject: RE: Pre-Visit Planning Caller Name: DONG WHITMORE; Caller Number: H , B [phone] OK to add the first one. Thank you Normal [address] [place] [address] A1C HEMOGLOBINon 02-14-2023 HbA1c (Bld) [Mass fraction] 7.6 % [facility] Other Glucose - FINGER STICKon Glucose [Mass/Vol] 215 mg/dL [facility] Other HbA1c (Bld) [Mass fraction]o n 02-14-2023 A1C HEMOGLOBIN [employer] Other ECHOCARDIO M/2D COMPLETEon 0 12-30-2022 ECHOCARDIO M/2D COMPLETE Patient: DONG WHITMORE. Exam Date: 12/30/2022 : 1950 Gender:M Ordering : [facility] Admission #: [id number] Family : Order #: [id number] CLICK HERE TO VIEW EXAM ECHOCARDIOGRAM REPORT [...] Thibodeaux M.D. on 12/30/2022 at 18:49 Normal [facility] NM STRESS/REST MULTIon 12-29 NM STRESS/REST MULTI Patient: HAIM DONG A. Exam Date: 12/29/2022 : 1950 Gender:M Ordering : [facility] Admission #: [id number] Family : Order #: [id number] CLICK HERE TO VIEW EXAM RADIOLOGY REPORT [...] Morales M.D. on 12/30/2022 at 09:41 Normal [facility] US MAMI DOP LEG RTon 12-09-19 [...] MORGAN ROJO Date: 2022-12-08 16:15 Normal [facility] TSHon 11-25-2022 TSH 2.370 uIU/mL Normal 0.358-3.[address] [facility] Comment on above: Performed By: #### T SH #### [facility] [address] [address] [address] Eli Jarvis BNPon 11-08-2022 Natriuretic peptide B (Bld) [Mass/Vol] 122.0 pg/mL Normal <=900.0 [facility] Comment on above: Performed By: #### C MP, BNP #### [facility] [address] [address] [address] Eli Jarvis CBC AUTO DIFFon 11-08-2022 BASO # 0.1 103/ul Normal 0.0-0.1 [facility] Comment on above: Performed By: #### C BC ####[facility] [address] [address]Dr. Eli Jarvis Basophils/100 WBC (Bld) 0.7 % Normal 0.2-2.0 [facility] Comment on above: Performed By: #### C BC ####[facility] [address] [address]Dr. Eli Jarvis EO # 0.2 103/ul Normal 0.0-0.7 [facility] Comment on above: Performed By: #### C BC ####[facility] [address] [address]Dr. Eli Jarvis Eosinophils/100 WBC (Bld) 3.5 % Normal 0.9-7.0 [facility] Comment on above: Performed By: #### C BC ####[facility] [address] [place], [place] [address]DrSuzie Jarvis Erythrocyte distribution width (RBC) [Ratio] 13.8 % Normal 11.0-15.0 [facility] Comment on above: Performed By: #### C BC ####[facility] [address] [place], [place] [address]Dr. Eli Jarvis Hematocrit (Bld) [Volume fraction] 42.0 % Normal 42.0-54.0 [facility] Comment on above: Performed By: #### C BC ####[facility] [address] [address]Dr. Eli Jarvis Hemoglobin (Bld) [Mass/Vol] 13.8 g/dL Critically low 14.0-18.0 [facility] Comment on above: Performed By: #### C BC ####[facility] [address] [address]Dr. Eli Jarvis IG # 0.03 10e3/ul Normal 0.00-0.03 [facility] Comment on above: Performed By: #### C BC ####[facility] [address] [place], [place] [address]Dr. Eli Matheus IG % 0.4 % Normal 0.0-0.5 [facility] Comment on above: Performed By: #### C BC ####[facility] [address] [place], [place] [address]Dr. Eli Matheus LYMPH # 1.3 103/ul Normal 1.2-3.8 [facility] Comment on above: Performed By: #### C BC ####[facility] [address] [place], [place] [address]Dr. Eli Matheus Lymphocytes/100 WBC (Bld) 18.8 % Critically low 20.5-60.0 [facility] Comment on above: Performed By: #### C BC ####[facility] [address] [address]Dr. Sparklealine Jarvis MANUAL DIFF REQ NO Normal [facility] Comment on above: Performed By: #### C BC ####[facility] [address] [address]Dr. Eli Matheus MCH (RBC) [Entitic mass] 27.8 pg Normal 25.9-34.0 [facility] Comment on above: Performed By: #### C BC ####[facility] [address] [address]Dr. Sparklealine Jarvis MCHC (RBC) [Mass/Vol] 32.9 g/dL Normal 29.9-35.2 [facility] Comment on above: Performed By: #### C BC ####[facility] [address] [address]Dr. Eli Jarvis MCV (RBC) [Entitic vol] 84.7 fL Normal 80.0-94.0 [facility] Comment on above: Performed By: #### C BC ####[facility] [address] [address]Dr. Eli Matheus MONO # 0.6 103/ul Normal 0.3-0.8 [facility] Comment on above: Performed By: #### C BC ####[facility] [address] [place], [place] [address]Dr. Sparklealine Jarvis Monocytes/100 WBC (Bld) 8.5 % Normal 1.7-12.0 [facility] Comment on above: Performed By: #### C BC ####[facility] [address] [place], [place] [address]Dr. Eli Jarvis NEUT # 4.7 103/ul Normal 1.4-6.5 [facility] Comment on above: Performed By: #### C BC ####[facility] [address] [place], [place] [address]Dr. Sparklealine Jarvis Neutrophils/100 WBC (Bld) 68.1 % Normal 43.0-75.0 [facility] Comment on above: Performed By: #### C BC ####[facility] [address] [place], [place] [address]Dr. Sparklealine Jarvis Platelet mean volume (Bld) [Entitic vol] 10.3 fL Normal 9.5-13.5 [facility] Comment on above: Performed By: #### C BC ####[facility] [address] [place], [place] [address]Dr. Eli Jarvis PLT 189 103/ul Normal 150-450 [facility] Comment on above: Performed By: #### C BC ####[facility] [address] [place], [place] [address]Dr. Eli Jarvis RBC 4.96 106/ul Normal 4.70-6.10 [facility] Comment on above: Performed By: #### C BC ####[facility] [address] [address]Dr. lEi Jarvis WBC 7.0 103/ul Normal 4.0-11.0 [facility] Comment on above: Performed By: #### C BC ####[facility] [address] [address]Dr. Eli Jarvis PROF 14(COMP METB)on 023 Albumin [Mass/Vol] 3.6 g/dL Normal 3.4-5.0 [facility] Comment on above: Performed By: #### C MP, BNP #### [facility] [address] [place] [address] Dr. Eli Jarvis Albumin/Globulin [Mass ratio] 1.1 {ratio} Normal [facility] Comment on above: Performed By: #### C MP, BNP #### [facility] [address] [place] [address] Dr. Eli Jarvis ALP [Catalytic activity/Vol] 90 U/L Normal 46-116 [facility] Comment on above: Performed By: #### C MP, BNP #### [facility] [address] [place] [address] Dr. Eli Jarvis ALT [Catalytic activity/Vol] 42 U/L Normal 16-63 [facility] Comment on above: Performed By: #### C MP, BNP #### [facility] [address] [address] [address] Eli Jarvis Anion gap [Moles/Vol] 13.5 mmol/L Normal [facility] Comment on above: Performed By: #### C MP, BNP #### [facility] [address] [address] [address] Eli Jarvis AST [Catalytic activity/Vol] 26 U/L Normal 15-37 [facility] Comment on above: Performed By: #### C MP, BNP #### [facility] [address] [place] [address] Dr. lEi Jarvis Bilirubin [Mass/Vol] 0.4 mg/dL Normal 0.2-1.0 [facility] Comment on above: Performed By: #### C MP, BNP #### [facility] [address] [address] [address] Eli Jarvis Calcium [Mass/Vol] 9.3 mg/dL Normal 8.5-10.1 [facility] Comment on above: Performed By: #### C MP, BNP #### [facility] [address] [address] [address] Eli Jarvis Chloride [Moles/Vol] 104 mmol/L Normal 98-107 [facility] Comment on above: Performed By: #### C MP, BNP #### [facility] [address] [address] [address] Eli Jarvis CO2 [Moles/Vol] 25.7 mmol/L Normal 21.0-32.0 [facility] [place] Comment on above: Performed By: #### C MP, BNP #### [facility] [address] [place] [address] Dr. Eli Jarvis Creatinine [Mass/Vol] 1.32 mg/dL Critically high 0.70-1.30 [facility] Comment on above: Performed By: #### C MP, BNP #### [facility] [address] [place] [address] Dr. Eli Jarvis EGFR-AF TONGAN >60 Normal >=60 [facility] [place] Comment on above: Performed By: #### C MP, BNP #### [facility] [address] [place] [address] Dr. Eli Jarvis EGFR-NON AF TONGAN 53 mL/min/1.73m2 Critically low >=60 [facility] Comment on above: Performed By: #### C MP, BNP #### [facility] [address] [address] [address] Eli Jarvis Globulin (S) [Mass/Vol] 3.3 g/dL Normal [facility] Comment on above: Performed By: #### C MP, BNP #### [facility] [address] [address] [address] Eli Jarvis Glucose [Mass/Vol] 154 mg/dL Critically high 74-106 [facility] Comment on above: Performed By: #### C MP, BNP #### [facility] [address] [address] [address] Eli Jarvis Potassium [Moles/Vol] 4.2 mmol/L Normal 3.5-5.1 [facility] Comment on above: Performed By: #### C MP, BNP #### [facility] [address] [address] [address] Eli Jarvis Protein [Mass/Vol] 6.9 g/dL Normal 6.4-8.2 [facility] Comment on above: Performed By: #### C MP, BNP #### [facility] [address] [address] [address] Eli Jarvis Sodium [Moles/Vol] 139 mmol/L Normal 136-145 [facility] Comment on above: Performed By: #### C MP, BNP #### [facility] [address] [address] [address] Eli Jarvis Urea nitrogen [Mass/Vol] 23.0 mg/dL Critically high 7.0-18.0 [facility] Comment on above: Performed By: #### C MP, BNP #### [facility] [address] [place] [address] Dr. Eli Jarvis Urea nitrogen/Creatinine [Mass ratio] 17.4 mg/mg Normal [facility] Comment on above: Performed By: #### C MP, BNP #### [facility] [address] [place] [address] Dr. Eli Jarvis A1C HEMOGLOBINon 11-07-2022 HbA1c (Bld) [Mass fraction] 7.6 % [employer] Other Glucose - FINGER [employer] Glucose [Mass/Vol] 172 mg/dL [employer] Other HbA1c (Bld) [Mass fraction]o n 11-07-2022 A1C HEMOGLOBIN [employer] Other US KIDNEYSon 2022 US KIDNEYS EXAMINATION: [...] by: MORGAN ROJO Date: 2022 18:30 Normal [facility] A1C HEMOGLOBINon 07-27-2022 HbA1c (Bld) [Mass fraction] 7.2 % [employer] Other Glucose - FINGER STICKon Glucose [Mass/Vol] 160 mg/dL [employer] Other HbA1c (Bld) [Mass fraction]o n 07-27-2022 A1C HEMOGLOBIN [employer] Other A1C HEMOGLOBINon 04-21-2022 HbA1c (Bld) [Mass fraction] 7.6 % [employer] Other Glucose - FINGER [employer]on Glucose [Mass/Vol] 184 mg/dL [employer] Other HbA1c (Bld) [Mass fraction]o n 04-21-2022 A1C HEMOGLOBIN [employer] Other [employer] Creat Ratio,Uon Albumin DL <= 20 mg/L (U) [Mass/Vol] 10.5257126 mg/dL High 0.0-1.8 mg/dL [employer] Other Albumin/Creatinine DL <= 20 mg/L (U) [Mass ratio] 70.292479 mg/g High 0.0-30.0 mg/g [employer] [facility] [employer] Other Creatinine (U) [Mass/Vol] 041.7230779 mg/dL [employer] Other CBC AUTO DIFFon 04-07-2022 BASO # 0.0 103/ul Normal 0.0-0.1 [facility] Comment on above: Performed By: #### C BC #### [facility] [address] [place] [address] Dr. Eli Jarvis Basophils/100 WBC (Bld) 0.6 % Normal 0.2-2.0 [facility] Comment on above: Performed By: #### C BC #### [facility] [address] [place] [address] Dr. Eli Jarvis EO # 0.2 103/ul Normal 0.0-0.7 [facility] Comment on above: Performed By: #### C BC #### [facility] [address] [place] [address] Dr. Eli Jarvis Eosinophils/100 WBC (Bld) 2.9 % Normal 0.9-7.0 [facility] Comment on above: Performed By: #### C BC #### [facility] [address] [place] [address] Dr. Eli Jarvis Erythrocyte distribution width (RBC) [Ratio] 13.8 % Normal 11.0-15.0 [facility] Comment on above: Performed By: #### C BC #### [facility] [address] [place] [address] Dr. Eli Jarvis Hematocrit (Bld) [Volume fraction] 40.7 % Critically low 42.0-54.0 [facility] Comment on above: Performed By: #### C BC #### [facility] [address] [place] [address] Dr. Eli Jarvis Hemoglobin (Bld) [Mass/Vol] 13.3 g/dL Critically low 14.0-18.0 [facility] Comment on above: Performed By: #### C BC #### [facility] [address] [place] [address] Dr. Eli Jarvis IG # 0.04 10e3/ul Critically high 0.00-0.03 [facility] Comment on above: Performed By: #### C BC #### [facility] [address] [place] [address] Dr. Eli Jarvis IG % 0.6 % Critically high 0.0-0.5 [facility] Comment on above: Performed By: #### C BC #### [facility] [address] [place] [address] Dr. Eli Jarvis LYMPH # 1.3 103/ul Normal 1.2-3.8 [facility] Comment on above: Performed By: #### C BC #### [facility] [address] [place] [address] Dr. Eli Jarvis Lymphocytes/100 WBC (Bld) 18.7 % Critically low 20.5-60.0 [facility] Comment on above: Performed By: #### C BC #### [facility] [address] [place] [address] Dr. Eli Jarvis MANUAL DIFF REQ NO Normal [facility] Comment on above: Performed By: #### C BC #### [facility] [address] [place] [address] Dr. Eli Jarvis MCH (RBC) [Entitic mass] 28.1 pg Normal 25.9-34.0 [facility] Comment on above: Performed By: #### C BC #### [facility] [address] [place] [address] Dr. Eli Jarvis MCHC (RBC) [Mass/Vol] 32.7 g/dL Normal 29.9-35.2 [facility] Comment on above: Performed By: #### C BC #### [facility] [address] [place] [address] Dr. Eli Jarvis MCV (RBC) [Entitic vol] 86.0 fL Normal 80.0-94.0 [facility] Comment on above: Performed By: #### C BC #### [facility] [address] [place] [address] Dr. Eli Jarvis MONO # 0.4 103/ul Normal 0.3-0.8 [facility] Comment on above: Performed By: #### C BC #### [facility] [address] [place] [address] Dr. Eli Jarvis Monocytes/100 WBC (Bld) 6.2 % Normal 1.7-12.0 [facility] Comment on above: Performed By: #### C BC #### [facility] [address] [place] [address] Dr. Eli Jarvis NEUT # 4.9 103/ul Normal 1.4-6.5 [facility] Comment on above: Performed By: #### C BC #### [facility] [address] [place] [address] Dr. Eli Jarvis Neutrophils/100 WBC (Bld) 71.0 % Normal 43.0-75.0 [facility] Comment on above: Performed By: #### C BC #### [facility] [address] [place] [address] Dr. Eli Jarvis Platelet mean volume (Bld) [Entitic vol] 9.9 fL Normal 9.5-13.5 [facility] Comment on above: Performed By: #### C BC #### [facility] [address] [place] [address] Dr. Eli Jarvis PLT 184 103/ul Normal 150-450 [facility] Comment on above: Performed By: #### C BC #### [facility] [address] [place] [address] Dr. Eli Jarvis RBC 4.73 106/ul Normal 4.70-6.10 [facility] Comment on above: Performed By: #### C BC #### [facility] [address] [place] [address] Dr. Eli Jarvis WBC 6.9 103/ul Normal 4.0-11.0 [facility] Comment on above: Performed By: #### C BC #### [facility] [address] [place] [address] Dr. Eli Jarvis LIPID PROFILEon 04-07-2022 CHOL-HDL RATIO NORM SEE BELOW Normal [facility] Comment on above: Result Comment: 3.3 - 4.4 LOW RISK 4.4 - 7.1 AVERAGE RISK 7.1 - 11.0 MODERATE RISK >11.0 HIGH RISK Performed By: #### C MP, LIPID ####[facility] [address] [place], [place] [address]If. Sparklelan Jarvis Cholesterol [Mass/Vol] 127 mg/dL Normal <=200 [facility] Comment on above: Performed By: #### C MP, LIPID ####[facility] [address] [place], [place] [address]Xc. Sparklelan Jarvis Cholesterol in HDL [Mass/Vol] 36 mg/dL Critically low 40-60 [facility] Comment on above: Performed By: #### C MP, LIPID ####[facility] [address] [id number]. Eli Jarvis Cholesterol in LDL [Mass/Vol] 58.4 mg/dL Normal [facility] Comment on above: Performed By: #### C MP, LIPID ####[facility] [address] [id number]. Sparklelan Jarvis Cholesterol.total/Ch olesterol in HDL [Mass ratio] 3.5 {ratio} Normal [facility] Comment on above: Performed By: #### C MP, LIPID ####[facility] [address] [place], [place] [address]Jb. Sparklelan Jarvis HDL NORMAL > or = 60 mg/dl - LO W CARDIOVASCULAR RISK <40 mg/dl - HIGH CARDIOVASCULAR RISK Normal [facility] Comment on above: Performed By: #### C MP, LIPID ####[facility] [address] [place], [place] [address]Di. Yilan Jarvis LDL CALC NORMAL SEE BELOW Normal [facility] Comment on above: Result Comment: <100 mg/dl OPTIMAL 100 - 129 mg/dl NEAR OR ABOVE OPTIMAL 130 - 159 mg/dl BORDERLINE HIGH 160 - 189 mg/dl HIGH >190 mg/dl VERY HIGH Performed By: #### C MP, LIPID ####[facility] [address] [id number]. Yilan Jarvis Triglyceride [Mass/Vol] 163 mg/dL Critically high <=150 [facility] Comment on above: Performed By: #### C MP, LIPID ####[facility] [address] [address]Dr. Eli Jarvis VLDL CALC 32.6 mg/dL Normal [facility] Comment on above: Performed By: #### C MP, LIPID ####[facility] [address] [address]Dr. Eli Jarvis PROF 14(COMP METB)on 022 Albumin [Mass/Vol] 3.8 g/dL Normal 3.4-5.0 [facility] Comment on above: Performed By: #### C MP, LIPID ####[facility] [address] [address]Dr. Eli Jarvis Albumin/Globulin [Mass ratio] 1.1 {ratio} Normal [facility] Comment on above: Performed By: #### C MP, LIPID ####[facility] [address] [address]Dr. Eli Jarvis ALP [Catalytic activity/Vol] 89 U/L Normal 46-116 [facility] Comment on above: Performed By: #### C MP, LIPID ####[facility] [address] [place], [place] [address]Dr. Eli Jarvis ALT [Catalytic activity/Vol] 43 U/L Normal 16-63 [facility] Comment on above: Performed By: #### C MP, LIPID ####[facility] [address] [address]Dr. Eli Jarvis Anion gap [Moles/Vol] 10.7 mmol/L Normal [facility] Comment on above: Performed By: #### C MP, LIPID ####[facility] [address] [address]Dr. Eli Jarvis AST [Catalytic activity/Vol] 24 U/L Normal 15-37 [facility] Comment on above: Performed By: #### C MP, LIPID ####[facility] [address] [address]Dr. Eli Jarvis Bilirubin [Mass/Vol] 0.2 mg/dL Normal 0.2-1.0 [facility] Comment on above: Performed By: #### C MP, LIPID ####[facility] [address] [address]Dr. Eli Jarvis Calcium [Mass/Vol] 9.1 mg/dL Normal 8.5-10.1 [facility] Comment on above: Performed By: #### C MP, LIPID ####[facility] [address] [address]Dr. Eli Jarvis Chloride [Moles/Vol] 104 mmol/L Normal 98-107 [facility] Comment on above: Performed By: #### C MP, LIPID ####[facility] [address] [place], [place] [address]Dr. Eli Jarvis CO2 [Moles/Vol] 27.5 mmol/L Normal 21.0-32.0 [facility] Comment on above: Performed By: #### C MP, LIPID ####[facility] [address] [place], [place] [address]Dr. Eli Jarvis Creatinine [Mass/Vol] 1.15 mg/dL Normal 0.70-1.30 [facility] Comment on above: Performed By: #### C MP, LIPID ####[facility] [address] [place], [place] [address]Dr. Eli Jarvis EGFR-AF TONGAN >60 Normal >=60 [facility] Comment on above: Performed By: #### C MP, LIPID ####[facility] [address] [place], [place] [address]Dr. Sparklealine Matheus EGFR-NON AF TONGAN >60 Normal >=60 [facility] Comment on above: Performed By: #### C MP, LIPID ####[facility] [address] [place], [place] [address]Dr. Eli Jarvis Globulin (S) [Mass/Vol] 3.4 g/dL Normal [facility] Comment on above: Performed By: #### C MP, LIPID ####[facility] [address] [place], [place] [address]Dr. Eli Jarvis Glucose [Mass/Vol] 157 mg/dL Critically high 74-106 [facility] Comment on above: Performed By: #### C MP, LIPID ####[facility] [address] [address]Dr. Eli Jarvis Potassium [Moles/Vol] 4.2 mmol/L Normal 3.5-5.1 [facility] Comment on above: Performed By: #### C MP, LIPID ####[facility] [address] [address]Dr. Eli Jarvis Protein [Mass/Vol] 7.2 g/dL Normal 6.4-8.2 [facility] Comment on above: Performed By: #### C MP, LIPID ####[facility] [address] [address]Dr. Eli Jarvis Sodium [Moles/Vol] 138 mmol/L Normal 136-145 [facility] Comment on above: Performed By: #### C MP, LIPID ####[facility] [address] [id number]. Eli Jarvis Urea nitrogen [Mass/Vol] 26.0 mg/dL Critically high 7.0-18.0 [facility] Comment on above: Performed By: #### C MP, LIPID ####[facility] [address] [address]Dr. Eli Jarvis Urea nitrogen/Creatinine [Mass ratio] 22.6 mg/mg Normal [facility] Comment on above: Performed By: #### C MP, LIPID ####[facility] [address] [address]Dr. Eli Jarvis A1C HEMOGLOBINon 10-21-2021 HbA1c (Bld) [Mass fraction] 6.6 % [employer] Other Glucose - [employer] Glucose [Mass/Vol] 169 mg/dL [employer] Other HbA1c (Bld) [Mass fraction]o n 10-21-2021 A1C HEMOGLOBIN [employer] Other Comprehensive Metabolic [facility] 07-29-2021 Albumin [Mass/Vol] 3.9 g/dL 3.2-5.5 [facility] [employer] Other Albumin/Globulin [Mass ratio] 1.6 {ratio} [facility] [employer] Other ALP [Catalytic activity/Vol] 63 U/L 32-92 [facility] [employer] Other ALT [Catalytic activity/Vol] 32 U/L 10-60 [employer] Other AST [Catalytic activity/Vol] 32 U/L 10-42 [employer] Other Bilirubin [Mass/Vol] 0.5 mg/dL 0.3-1.2 [facility] [employer] Other Calcium [Mass/Vol] 9.7 mg/dL 8.2-10.2 [employer] Other Chloride [Moles/Vol] 105 mmol/L 95-114 [facility] [employer] Other CO2 [Moles/Vol] 22.7 mmol/L 22.0-30.0 [facility] [employer] Other Creatinine [Mass/Vol] 1.28 mg/dL 0.64-1.27 [employer] Other Glucose [Mass/Vol] 111 mg/dL 70-100 [employer] Other Potassium [Moles/Vol] 4.1 mmol/L 3.5-5.1 [employer] Other Protein [Mass/Vol] 6.3 g/dL 6.1-7.[address] [employer] Other Sodium [Moles/Vol] 139 mmol/L 136-[address] [employer] Other Urea nitrogen [Mass/Vol] 23 mg/dL 9-[address] [employer] Other Comprehensive Metabolic Panel [address] [employer] Other Comprehensive Metabolic Panel > [address] [employer] Other Comprehensive Metabolic Panel 2.[address] [employer] Other Hepatitis Acute Panelon 10-2 Hepatitis Acute Panel Negative Negative [employer] Other Hepatitis Acute Panel <0.1 0.0-0.[address] [employer] Other Vital Signs Date Time Vital Sign Value Performing Clinician Facility 10-17-2024 10:14-0500 Body height 165.1 cm Bassam Aguilar DPM Work Phone: [facility] 10-17-2024 10:14-0500 Body mass index (BMI) [Ratio] 45.93 kg/m2 Bassam Aguilar DPM Work Phone: [facility] 10-17-2024 10:14-0500 Body weight 125.19 kg Bassam Aguilar DPM Work Phone: [facility] 10-17-2024 10:14-0500 Respiratory rate 16 /min Bassam Aguilar DPM Work Phone: [facility] 08-29-2024 09:27-0500 Body mass index (BMI) [Ratio] 45.93 kg/m2 Christalixer Lalo DO Work Phone: [facility] 08-29-2024 09:27-0500 Body weight 125.19 kg Christopher Lalo DO Work Phone: [facility] 08-29-2024 09:27-0500 Diastolic blood pressure 76 mm[Hg] Christopher Lalo DO Work Phone: [facility] 08-29-2024 09:27-0500 Heart rate 64 /min Christopher Lalo DO Work Phone: [facility] 08-29-2024 09:27-0500 SaO2% (BldA) [Mass fraction] 95 % Christopher Lalo DO Work Phone: [facility] 08-29-2024 09:27-0500 Systolic blood pressure 134 mm[Hg] Christopher Lalo DO Work Phone: [facility] 08-14-2024 09:59-0500 Body mass index (BMI) [Ratio] 40.46 kg/m2 Chiqui Robles MD Work Phone: [facility] 08-14-2024 09:59-0500 Body weight 117.2 kg Chiqui Robles MD Work Phone: [facility] 08-14-2024 09:59-0500 Diastolic blood pressure 69 mm[Hg] Chiqui Robles MD Work Phone: [facility] 08-14-2024 09:59-0500 Heart rate 59 /min Chiqui Robles MD Work Phone: [facility] 08-14-2024 09:59-0500 Respiratory rate 16 /min Chiqui Robles MD Work Phone: [facility] 08-14-2024 09:59-0500 SaO2% (BldA) [Mass fraction] 97 % Chiqui Robles MD Work Phone: [facility] 08-14-2024 09:59-0500 Systolic blood pressure 137 mm[Hg] Chiqui Robles MD Work Phone: [facility] 08-08-2024 09:32-0400 Body height 165.1 cm Bassam Aguilar DPM Work Phone: [facility] 08-08-2024 09:32-0400 Body mass index (BMI) [Ratio] 42.43 kg/m2 Bassam Aguilar DPM Work Phone: [facility] 08-08-2024 09:32-0400 Body weight 115.67 kg Bassam Aguilar DPM Work Phone: [facility] 08-08-2024 09:32-0400 Diastolic blood pressure 79 mm[Hg] Bassam Aguilar DPM Work Phone: [facility] 08-08-2024 09:32-0400 Heart rate 82 /min Bassam Aguilar DPM Work Phone: [facility] 08-08-2024 09:32-0400 Systolic blood pressure 128 mm[Hg] Bassam Aguilar DPM Work Phone: [facility] 08-06-2024 09:53-0400 Body height 165.1 cm Khai Heard DO Work Phone: [facility] 08-06-2024 09:53-0400 Body mass index (BMI) [Ratio] 42.43 kg/m2 Khai Heard DO Work Phone: [facility] 08-06-2024 09:53-0400 Body weight 115.67 kg Khai Heard DO Work Phone: [facility] 07-31-2024 10:20-0400 Body height 165.1 cm Shyam Dolce DPM [employer] Work Phone: [facility] 07-31-2024 10:20-0400 Body mass index (BMI) [Ratio] 42.43 kg/m2 Shyam Dolce DPM [employer] Work Phone: [facility] 07-31-2024 10:20-0400 Body weight 115.67 kg Shyam Dolce DPM [employer] Work Phone: [facility] 07-31-2024 10:20-0400 Diastolic blood pressure 79 mm[Hg] Shyam Dolce DPM [employer] Work Phone: [facility] 07-31-2024 10:20-0400 Heart rate 68 /min Shyam Dolce DPM [employer] Work Phone: [facility] 07-31-2024 10:20-0400 Systolic blood pressure 128 mm[Hg] Shyam Dolce DPM [employer] Work Phone: [facility] 07-24-2024 10:12-0400 Body height 165.1 cm Shyam Dolce DPM [employer] Work Phone: [facility] 07-24-2024 10:12-0400 Body mass index (BMI) [Ratio] 42.43 kg/m2 Shyam Dolce DPM [employer] Work Phone: [facility] 07-24-2024 10:12-0400 Body weight 115.67 kg Shyam Dolce DPM [employer] Work Phone: [facility] 07-24-2024 10:12-0400 Diastolic blood pressure 78 mm[Hg] Shyam Dolce DPM [employer] Work Phone: [facility] 07-24-2024 10:12-0400 Heart rate 83 /min Shyam Dolce DPM [employer] Work Phone: [facility] 07-24-2024 10:12-0400 Systolic blood pressure 131 mm[Hg] Shyam Dolce DPM [employer] Work Phone: [facility] 07-23-2024 09:37-0400 Body height 165.1 cm Arlen Oja.la Work Phone: [facility] 07-23-2024 09:37-0400 Body mass index (BMI) [Ratio] 42.43 kg/m2 [employer]len [employer] Work Phone: [facility] 07-23-2024 09:37-0400 Body weight 115.67 kg Arlen [employer] Work Phone: [facility] 07-03-2024 10:07-0400 Body height 165.1 cm Shyam Dolce DPM [employer] Work Phone: [facility] 07-03-2024 10:07-0400 Body mass index (BMI) [Ratio] 42.43 kg/m2 Shyam Dolce DPM [employer] Work Phone: [facility] 07-03-2024 10:07-0400 Body weight 115.67 kg Shyam Dolce DPM [employer] Work Phone: [facility] 07-03-2024 10:07-0400 Diastolic blood pressure 78 mm[Hg] Shyam Dolce DPM [employer] Work Phone: [facility] 07-03-2024 10:07-0400 Heart rate 85 /min Shyam Dolce DPM [employer] Work Phone: [facility] 07-03-2024 10:07-0400 Systolic blood pressure 132 mm[Hg] Shyam Dolce DPM [employer] Work Phone: [facility] 06-25-2024 14:46-0400 Body height 165.1 cm Kajal Dolce DPM [employer] Work Phone: [facility] 06-25-2024 14:46-0400 Body mass index (BMI) [Ratio] 42.43 kg/m2 Kajal Dolce DPM [employer] Work Phone: [facility] 06-25-2024 14:46-0400 Body weight 115.67 kg Kajal Dolce DPM [employer] Work Phone: [facility] 06-25-2024 14:46-0400 Diastolic blood pressure 75 mm[Hg] Kajal Dolce DPM [employer] Work Phone: [facility] 06-25-2024 14:46-0400 Heart rate 72 /min Kajal Dolce DPM [employer] Work Phone: [facility] 06-25-2024 14:46-0400 Systolic blood pressure 126 mm[Hg] Kajal Dolce DPM [employer] Work Phone: [facility] 06-19-2024 08:52-0400 Body height 165.1 cm Shyam Dolce DPM [employer] Work Phone: [facility] 06-19-2024 08:52-0400 Body mass index (BMI) [Ratio] 42.43 kg/m2 Shyam Dolce DPM [employer] Work Phone: [facility] 06-19-2024 08:52-0400 Body weight 115.67 kg Shyam Dolce DPM [employer] Work Phone: [facility] 06-19-2024 08:52-0400 Diastolic blood pressure 77 mm[Hg] Shyam Dolce DPM [employer] Work Phone: [facility] 06-19-2024 08:52-0400 Heart rate 73 /min Shyam Dolce DPM [employer] Work Phone: [facility] 06-19-2024 08:52-0400 Systolic blood pressure 125 mm[Hg] Shyam Cam GREGORIOM [employer] Work Phone: [facility] 06-18-2024 10:17-0400 Body height 165.1 cm Bassam Aguilar DPM Work Phone: [facility] 06-18-2024 10:17-0400 Body mass index (BMI) [Ratio] 42.43 kg/m2 Bassam Aguilar DPM Work Phone: [facility] 06-18-2024 10:17-0400 Body weight 115.67 kg Bassam Aguilar DPM Work Phone: [facility] 06-18-2024 10:17-0400 Diastolic blood pressure 75 mm[Hg] Bassam Aguilar DPM Work Phone: [facility] 06-18-2024 10:17-0400 Heart rate 83 /min Bassam Aguilar DPM Work Phone: [facility] 06-18-2024 10:17-0400 Systolic blood pressure 125 mm[Hg] Bassam Aguilar DPM Work Phone: [facility] 04-24-2024 08:50-0400 Body height 170.2 cm Chiqui Robles MD Work Phone: [facility] 04-24-2024 08:50-0400 Body mass index (BMI) [Ratio] 42.28 kg/m2 Chiqui Robles MD Work Phone: [facility] 04-24-2024 08:50-0400 Body weight 122.47 kg Chiqui Robles MD Work Phone: [facility] 04-24-2024 08:50-0400 Diastolic blood pressure 89 mm[Hg] Chiqui Robles MD Work Phone: [facility] 04-24-2024 08:50-0400 Heart rate 61 /min Chiqui Robles MD Work Phone: [facility] 04-24-2024 08:50-0400 SaO2% (BldA) [Mass fraction] 95 % Chiqui Robles MD Work Phone: [facility] 04-24-2024 08:50-0400 Systolic blood pressure 122 mm[Hg] Chiqui Robles MD Work Phone: [facility] 02-29-2024 13:41-0400 Body height 170.2 cm Herberth Araujo MD, PhD Work Phone: [facility] 02-29-2024 13:41-0400 Body mass index (BMI) [Ratio] 42.29 kg/m2 Herberth Araujo MD, PhD Work Phone: [facility] 02-29-2024 13:41-0400 Body temperature 97.39 [degF] Herberth Araujo MD, PhD Work Phone: [facility] 02-29-2024 13:41-0400 Body weight 122.47 kg Herberth Araujo MD, PhD Work Phone: [facility] 02-29-2024 13:41-0400 Diastolic blood pressure 73 mm[Hg] Herberth Araujo MD, PhD Work Phone: [facility] 02-29-2024 13:41-0400 Heart rate 62 /min Herberth Araujo MD, PhD Work Phone: [facility] 02-29-2024 13:41-0400 SaO2% (BldA) [Mass fraction] 94 % Herberth Araujo MD, PhD Work Phone: [facility] 02-29-2024 13:41-0400 Systolic blood pressure 138 mm[Hg] Herberth Araujo MD, PhD Work Phone: [facility] 02-05-2024 12:17-0400 Body weight 124.74 kg Francoise Singletary MD Work Phone: [facility] 02-05-2024 12:17-0400 Diastolic blood pressure 70 mm[Hg] Francoise Singletary MD Work Phone: [facility] 02-05-2024 12:17-0400 Heart rate 80 /min Francoise Singletary MD Work Phone: [facility] 02-05-2024 12:17-0400 Systolic blood pressure 131 mm[Hg] Francoise Singletary MD Work Phone: [facility] 09-11-2023 11:00-0500 Body height 167.64 cm Tondra Mapus Other [facility] 09-11-2023 11:00-0500 Body mass index (BMI) [Ratio] 44.91 kg/m2 Tondra Mapus Other [facility] Other 09-11-2023 11:00-0500 Body weight 126.24 kg Tondra Mapus Other [facility] Other 09-11-2023 11:00-0500 Body weight 126.23 kg MD Scarlet Johnson Work Phone: [facility] 09-11-2023 11:00-0500 Diastolic blood pressure 82 mm[Hg] Tondra Mapus Other [facility] 09-11-2023 11:00-0500 Respiratory rate 18 /min Tondra Mapus Other [facility] Other 09-11-2023 11:00-0500 SaO2% (BldA) [Mass fraction] 99 % Tondra Mapus Other [facility] Other 09-11-2023 11:00-0500 Systolic blood pressure 153 mm[Hg] Tondra Mapus Other [facility] 08-24-2023 13:45-0500 Body height 167.64 cm Eligio Soni Other [facility] 08-24-2023 13:45-0500 Body mass index (BMI) [Ratio] 44.22 kg/m2 Eligio Zachariah Other [facility] Other 08-24-2023 13:45-0500 Body temperature 97.4 [degF] Eligio Zachariah Other [facility] Other 08-24-2023 13:45-0500 Body weight 124.29 kg Eligio Russellfabiola Other [facility] Other 08-24-2023 13:45-0500 Body weight 124.28 kg MD Scarlet Johnson Work Phone: [facility] 08-24-2023 13:45-0500 Diastolic blood pressure 60 mm[Hg] Eligio Zachariah Other [facility] 08-24-2023 13:45-0500 SaO2% (BldA) [Mass fraction] 97 % Eligio Zachariah Other [facility] Other 08-24-2023 13:45-0500 Systolic blood pressure 130 mm[Hg] Eligio Zachariah Other [facility] 03-07-2023 10:00-0400 Body height 167.64 cm Terry Kelley Other [facility] Other 03-07-2023 10:00-0400 Body mass index (BMI) [Ratio] 43.61 kg/m2 Terry Kelley Other [facility] Other 03-07-2023 10:00-0400 Body weight 122.56 kg Terry Kelley Other [facility] Other 03-07-2023 10:00-0400 Diastolic blood pressure 70 mm[Hg] Terry Kelley Other [facility] Other 03-07-2023 10:00-0400 Respiratory rate 20 /min Terry Kimblediff Other [facility] Other 03-07-2023 10:00-0400 SaO2% (BldA) [Mass fraction] 96 % Terry Kimblediff Other [facility] Other 03-07-2023 10:00-0400 Systolic blood pressure 134 mm[Hg] Terry Kimblediff Other [facility] Other 02-14-2023 09:45-0400 Body height 172.72 cm Tondra Mapus Other [facility] Other 02-14-2023 09:45-0400 Body mass index (BMI) [Ratio] 41.32 kg/m2 Tondra Mapus Other [facility] Other 02-14-2023 09:45-0400 Body weight 123.29 kg Tondra Mapus Other [facility] Other 02-14-2023 09:45-0400 Diastolic blood pressure 82 mm[Hg] Tondra Mapus Other [facility] Other 02-14-2023 09:45-0400 Respiratory rate 18 /min Tondra Mapus Other [facility] Other 02-14-2023 09:45-0400 SaO2% (BldA) [Mass fraction] 97 % Tondra Mapus Other [facility] Other 02-14-2023 09:45-0400 Systolic blood pressure 157 mm[Hg] Aldo Middleton Other [facility] Other 01-20-2023 12:15-0400 Body height 172.72 cm Carito Fitt Other [facility] Other 01-20-2023 12:15-0400 Body mass index (BMI) [Ratio] 40.71 kg/m2 Carito Fitt Other [facility] Other 01-20-2023 12:15-0400 Body weight 121.47 kg Carito Fitt Other [facility] Other 01-05-2023 11:15-0400 Body height 172.72 cm Terry Kelley Other [facility] Other 01-05-2023 11:15-0400 Body mass index (BMI) [Ratio] 40.96 kg/m2 Terry Kelley Other [facility] Other 01-05-2023 11:15-0400 Body weight 122.2 kg Terry Kelley Other [facility] Other 01-05-2023 11:15-0400 Diastolic blood pressure 73 mm[Hg] Terry Kelley Other [facility] Other 01-05-2023 11:15-0400 Respiratory rate 18 /min Terry Kelley Other [facility] Other 01-05-2023 11:15-0400 SaO2% (BldA) [Mass fraction] 98 % Terry Kelley Other [facility] Other 01-05-2023 11:15-0400 Systolic blood pressure 143 mm[Hg] Terry Kelley Other [facility] Other 11-24-2022 12:15-0500 Body height 172.72 cm Carito Fitt Other [facility] Other 11-24-2022 12:15-0500 Body mass index (BMI) [Ratio] 42.22 kg/m2 Carito Fitt Other [facility] Other 11-24-2022 12:15-0500 Body weight 125.96 kg Carito Fitt Other [facility] Other 11-18-2022 11:15-0500 Body height 172.72 cm Terry Kelley Other [facility] Other 11-18-2022 11:15-0500 Body mass index (BMI) [Ratio] 41.96 kg/m2 Terry Kelley Other [facility] Other 11-18-2022 11:15-0500 Body weight 125.19 kg Terry Kelley Other [facility] Other 11-18-2022 11:15-0500 Diastolic blood pressure 75 mm[Hg] Terry Kelley Other [facility] Other 11-18-2022 11:15-0500 Respiratory rate 18 /min Terry Kelley Other [facility] Other 11-18-2022 11:15-0500 SaO2% (BldA) [Mass fraction] 99 % Terry Kelley Other [facility] Other 11-18-2022 11:15-0500 Systolic blood pressure 148 mm[Hg] Terry Kelley Other [facility] Other 11-07-2022 10:15-0500 Body height 172.72 cm Tondra Mapus Other [facility] Other 11-07-2022 10:15-0500 Body mass index (BMI) [Ratio] 42.58 kg/m2 Tondra Mapus Other [facility] Other 11-07-2022 10:15-0500 Body weight 127.05 kg Tondra Mapus Other [facility] Other 11-07-2022 10:15-0500 Diastolic blood pressure 83 mm[Hg] Tondra Mapus Other [facility] Other 11-07-2022 10:15-0500 Respiratory rate 18 /min Tondra Mapus Other [facility] Other 11-07-2022 10:15-0500 SaO2% (BldA) [Mass fraction] 98 % Tondra Mapus Other [facility] Other 11-07-2022 10:15-0500 Systolic blood pressure 170 mm[Hg] Tondra Mapus Other [facility] Other 10-18-2022 15:00-0500 Body height 172.72 cm Carito Fitt Other [facility] Other 2022 16:15-0400 Body height 172.72 cm Carito Fitt Other [facility] Other 07-27-2022 12:00-0400 Body height 172.72 cm Tondra Mapus Other [facility] Other 07-27-2022 12:00-0400 Body mass index (BMI) [Ratio] 40.9 kg/m2 Tondra Mapus Other [facility] Other 07-27-2022 12:00-0400 Body weight 122.02 kg Tondra Mapus Other [facility] Other 07-27-2022 12:00-0400 Diastolic blood pressure 75 mm[Hg] Tondra Mapus Other [facility] Other 07-27-2022 12:00-0400 Respiratory rate 20 /min Tondra Mapus Other [facility] Other 07-27-2022 12:00-0400 SaO2% (BldA) [Mass fraction] 97 % Tondra Mapus Other [facility] Other 07-27-2022 12:00-0400 Systolic blood pressure 141 mm[Hg] Tondra Mapus Other [facility] Other 06-08-2022 10:45-0400 Body height 172.72 cm Carito Fitt Other [facility] Other 04-21-2022 12:00-0400 Body height 172.72 cm Tondra Mapus Other [facility] Other 04-21-2022 12:00-0400 Body mass index (BMI) [Ratio] 39.67 kg/m2 Tondra Mapus Other [facility] Other 04-21-2022 12:00-0400 Body weight 118.34 kg Tondra Mapus Other [facility] Other 04-21-2022 12:00-0400 Diastolic blood pressure 74 mm[Hg] Tondra Mapus Other [facility] Other 04-21-2022 12:00-0400 Respiratory rate 20 /min Tondra Mapus Other [facility] Other 04-21-2022 12:00-0400 SaO2% (BldA) [Mass fraction] 97 % Tondra Mapus Other [facility] Other 04-21-2022 12:00-0400 Systolic blood pressure 143 mm[Hg] Tondra Mapus Other [facility] Other 10-21-2021 12:00-0500 Body height 172.72 cm Tondra Mapus Other [facility] Other 10-21-2021 12:00-0500 Body mass index (BMI) [Ratio] 40.14 kg/m2 Tondra Mapus Other [facility] Other 10-21-2021 12:00-0500 Body weight 119.75 kg Tondra Mapus Other [facility] Other 10-21-2021 12:00-0500 Diastolic blood pressure 78 mm[Hg] Tondra Mapus Other [facility] Other 10-21-2021 12:00-0500 Respiratory rate 20 /min Tondra Mapus Other [facility] Other 10-21-2021 12:00-0500 SaO2% (BldA) [Mass fraction] 97 % Tondra Mapus Other [facility] Other 10-21-2021 12:00-0500 Systolic blood pressure 147 mm[Hg] Tondra Mapus Other [facility] Other 07-21-2021 15:45-0400 Body height 172.72 cm Morgan Kunz Other [facility] Other 07-21-2021 15:45-0400 Body mass index (BMI) [Ratio] 38.77 kg/m2 Morgan Kunz Other [facility] Other 07-21-2021 15:45-0400 Body weight 115.67 kg Morgan Kunz Other [facility] Other 12-14-2017 15:17-0500 Body height 170.18 cm MD Scarlet Johnson Work Phone: [facility] Encounters Encounter Date Encounter Type Care Provider Facility Start: 11-21-2024 ambulatory Haider Hickman Facility :[facility] [place] Start: 11-06-2024 ambulatory Araceli BERMUDEZ Facility :[facility] Start: 10-24-2024 ambulatory Haider Hickman Facility :[facility] [place] Start: 10-17-2024 End: 10-17-2024 Minal Aguilar DPM Work Phone: [facility] Start: 10-17-2024 End: 10-17-2024 JerardoEDP Biotechleila Aguilar DPM Work Phone: [facility] Start: 10-17-2024 End: 10-17-2024 Patient encounter procedure Bassam Aguilar DPM Work Phone: [facility] Comment on above: Diabetes mellitus du e to underlying condition with diabetic polyneuropathy, 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 intermission coordinator insulin use (CMS/[facility]) (Primary Dx); Pain due to onychomycosis of toenails of both feet; Venous insufficiency Start: 10-17-2024 End: 10-17-2024 ambulatory BASSAM AGUILAR Not Available Start: 10-15-2024 End: 10-15-2024 ambulatory Haider Hickman Facility:[facility] Start: 09-09-2024 End: 09-09-2024 ambulatory Haider Hickman Facility:[facility] Start: 09-09-2024 End: 09-09-2024 ambulatory Miguelangel Mac MD Facility:[facility] Start: 09-02-2024 End: 09-02-2024 [facility]ulatory [facility] Start: 08-29-2024 End: 08-29-2024 Bamboo flowsheet Matthew May DO Work Phone: [facility] Start: 08-29-2024 End: 08-29-2024 Bamboo flowsheet Matthew May DO Work Phone: [facility] Start: 08-29-2024 End: 08-29-2024 Office outpatient new 45 minutes Matthew May DO Work Phone: [facility] Comment on above: Right foot pain (Brie jesse Dx); Diabetic polyneuropathy associated with type 2 diabetes mellitus (CMS/HCC) Start: 08-29-2024 End: 08-29-2024 ambulatory MATTHEW MAY Not Available Start: 08-15-2024 End: 08-15-2024 ambulatory Haider Hickman Facility:[facility] Start: 08-14-2024 End: 08-14-2024 ambulatory HAIDER HICKMAN Facility:[facility] Start: 08-14-2024 End: 08-14-2024 Patient encounter procedure Chiqui Robles MD Work Phone: [facility] Comment on above: 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; Chronic toe pain, right foot; Class 3 severe obesity with serious comorbidity and body mass index (BMI) of 40.0 to 44.9 in adult, unspecified obesity type (HCC) Start: 08-08-2024 End: 08-08-2024 Bamboo flowsheet Bassam gAuilar DPM Work Phone: [facility] Start: 08-08-2024 End: 08-08-2024 Bamboo flowsheet Bassam Aguilar DPM Work Phone: [facility] Start: 08-08-2024 End: 08-08-2024 Office outpatient visit 15 minutes Bassam Aguilar DPM Work Phone: [facility] Comment on above: Amputation of toe of right foot (CMS/HCC) (Primary Dx); Diabetes 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, 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 intermission coordinator insulin use (CMS/HCC); Pain due to onychomycosis of toenails of both feet Start: 08-08-2024 End: 08-08-2024 ambulatory BASSAM AGUILAR Not Available Start: 08-07-2024 End: 08-07-2024 ambulatory [facility] Start: 08-06-2024 End: 08-06-2024 Bamboo flowsheet Khai [...] Not Available Start: 08-01-2024 End: 08-01-2024 ambulatory Haider Hickman Facility:[facility] Joc[facility] Start: 07-31-2024 End: 07-31-2024 Bamboo flowsheet Shyam D Dolce DPM FACFAS Work Phone: [facility] Start: 07-31-2024 End: 07-31-2024 Bamboo flowsheet Shyam D Dolce DPM FACFAS Work Phone: [facility] Start: 07-31-2024 End: 07-31-2024 Office outpatient visit 15 minutes Shyam D Dolce DPM FACFAS Work Phone: [facility] Comment on above: 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); Diabetes 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, 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 intermission coordinator insulin use ([facility]); Amputation of right great toe ([facility]) Start: 07-31-2024 End: 07-31-2024 ambulatory SHYAM D [...] underlying condition with diabetic polyneuropathy, 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 half-way insulin use (CMS/[facility]) Start: 07-24-2024 End: 07-24-2024 ambulatory SHYAM D DOLKILO Not Available Start: 07-23-2024 End: 07-23-2024 Bamboo flowsheet Arlen Sanchez DO Work Phone: [facility] Start: 07-23-2024 End: 07-23-2024 Bamboo flowsheet Arlen Sanchez DO Work Phone: [facility] Start: 07-23-2024 End: 07-23-2024 Office outpatient visit 25 minutes Arlen Nur Daniel DO Work Phone: [facility] Comment on above: Internal derangement of left shoulder (Primary Dx); Arthritis of left acromioclavicular joint; Complete tear of left rotator cuff, 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 traumatic; Left shoulder pain, unspecified chronicity Start: 07-23-2024 End: 07-23-2024 ambulatory ARLEN Boom SANCHEZ Not Available Start: 07-19-2024 End: 07-22-2024 Refill Chiqui Robles MD Work Phone: Neurology Pain Comment on above: Med Change Request Start: 07-19-2024 End: 07-19-2024 [facility] Start: 07-17-2024 End: 07-18-2024 ambulatory Araceli BERMUDEZ Facility:[facility] Comment on above: Medication Question Start: 07-04-2024 End: 07-08-2024 Telephone encounter Arlen Nur Daniel DO Work Phone: [facility] Comment on above: MRI Start: 07-03-2024 End: 07-03-2024 Bamboo flowsheet Shyam D Dolce DPM FACFAS Work Phone: [facility] Start: 07-03-2024 End: 07-03-2024 Bamboo flowsheet Shyam D Dolce DPM FACFAS Work Phone: [facility] Start: 07-03-2024 End: 07-03-2024 Office outpatient visit 15 minutes Shyam D Dolce DPM FACFAS Work Phone: [facility] Comment on above: 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) Start: 07-03-2024 End: 07-03-2024 ambulatory SHYAM D DOLCE Not Available Start: 07-01-2024 End: 07-01-2024 Bamboo flowsheet Chelle Brandon S IRON WORKER Work Phone: [facility] Start: 07-01-2024 End: 07-01-2024 Bamboo flowsheet Chelle Brandon S IRON WORKER Work Phone: [facility] Start: 07-01-2024 End: 07-01-2024 Office outpatient visit 15 minutes Chelle Rosamaria Roma S IRON WORKER Work Phone: [facility] Comment on above: Left shoulder pain, unspecified chronicity (Primary Dx); Arthritis of left acromioclavicular joint; Glenohumeral arthritis, left; Impingement of left shoulder; Internal derangement of left shoulder Start: 07-01-2024 End: 07-01-2024 ambulatory CHELLE Blank FRANCIAEDMUNDO Not Available Start: 06-26-2024 End: 06-26-2024 ambulatory [facility] Start: 06-25-2024 End: 06-25-2024 ambulatory KAJAL R DOLCE Not Available Start: 06-25-2024 End: 06-25-2024 Office outpatient visit 15 minutes Kajal R Dolce DPM FACFAS Work Phone: [facility] Comment on above: 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); Diabetes 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, 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 half-way insulin use ([facility]); Venous insufficiency; Non-pressure chronic ulcer of other part of right lower leg with fat layer exposed ([facility]) Start: 06-25-2024 End: 06-25-2024 Bamboo flowsheet Kajal R Dolce DPM FACFAS Work Phone: [facility] Start: 06-25-2024 End: 06-25-2024 Bamboo flowsheet Kajal R Dolce DPM FACFAS Work Phone: [facility] Start: 06-19-2024 End: 06-19-2024 Telephone encounter Shyam Cam DPM FACFAS Work Phone: [facility] Start: 06-19-2024 End: 06-19-2024 ambulatory Kajal R Dolce Facility[facility] Start: 06-19-2024 End: 06-19-2024 Office outpatient visit 25 minutes Shyam Cam DPM FACFAS Work Phone: [facility] Comment on above: Acquired deformity o f right toe Start: 06-19-2024 End: 06-19-2024 ambulatory SHYAM HAIRSTONKILO Not Available Start: 06-18-2024 End: 06-18-2024 Bamboo flowsheet Bassam Aguilar DPM Work Phone: [facility] Start: 06-18-2024 End: 06-18-2024 Bamboo flowsheet Bassam Aguilar DPM Work Phone: [facility] Start: 06-18-2024 End: 06-18-2024 ambulatory BASSAM AGUILAR Not Available Start: 06-18-2024 End: 06-18-2024 Office outpatient visit 15 minutes Bassam Aguilar DPM Work Phone: [facility] Comment on above: 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); Diabetes 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, 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 intermission coordinator insulin use ([facility]); Amputation of right great toe ([facility]) Start: 06-12-2024 End: 06-12-2024 Bamboo flowsheet Chelle Brandon S IRON WORKER Work Phone: [facility] Start: 06-12-2024 End: 06-12-2024 Bamboo flowsheet Chelle Brandon S IRON WORKER Work Phone: [facility] Start: 06-12-2024 End: 06-12-2024 ambulatory Kajal Cam Facility:[facility] Start: 06-12-2024 End: 06-12-2024 Office outpatient visit 25 minutes Chelle Brandon S IRON WORKER Work Phone: [facility] Comment on above: Left shoulder pain, unspecified chronicity (Primary Dx); Arthritis of left acromioclavicular joint; Glenohumeral arthritis, left; Impingement of left shoulder Start: 06-12-2024 End: 06-12-2024 ambulatory CHELLE B APLING Not Available Start: 06-07-2024 End: 06-07-2024 [facility] Britney Hyde PhD Work Phone: Pain Recovery Comment on above: Adjustment disorder with depressed mood (Primary Dx); Complex regional pain syndrome type II of right lower limb; Chronic toe pain, right foot Start: 06-05-2024 End: 06-05-2024 ambulatory Kajal Cam Facility:[facility] Start: 06-03-2024 End: 06-03-2024 Telephone encounter Chelle Blank Roma S IRON WORKER Work Phone: [facility] Start: 05-27-2024 End: 05-27-2024 ambulatory CHELLE Blank APLEDMUNDO Not Available Start: 05-23-2024 ambulatory Chiqui chapa MD Work Phone: Neurology Pain Comment on above: taking memantine HCL Start: 05-22-2024 End: 05-22-2024 ambulatory DAVID ACOSTA Facility:[facility] [place] [facility] Start: 05-13-2024 End: 05-13-2024 ambulatory Haider Hickman Facility: [facility] [place] [facility] Start: 05-09-2024 End: 05-09-2024 ambulatory BASSAM AGUILAR Not Available Start: 05-07-2024 ambulatory Morgan Trinidad Therapist Work Phone: Pain Recovery Comment on above: next step, resources Start: 05-07-2024 E-mail encounter fro m caregiver Morgan Trinidad Therapist Work Phone: Pain Recovery Start: 05-06-2024 End: 05-06-2024 [facility] Morgan Trinidad Therapist Work Phone: Pain Recovery Comment on above: Adjustment disorder with depressed mood (Primary Dx); Complex regional pain syndrome type II of right lower limb; Chronic toe pain, right foot Start: 04-24-2024 End: 04-24-2024 ambulatory HAIDER HICKMAN Facility:[facility] Start: 04-24-2024 End: 04-24-2024 Patient encounter [...] Start: 04-23-2024 End: 04-23-2024 ambulatory Haider Hickman Facility:[facility] Jocelyn sil[facility] Start: 04-03-2024 End: 04-03-2024 ambulatory HERBERTH ARAUJO Facility:[facility] Start: 03-26-2024 End: 03-26-2024 ambulatory Haider Hickman Facility:[facility] Jocelyn sil[facility] Start: 03-19-2024 Telephone encounter Herberth meyers MD, PhD Work Phone: Pain Management Comment on above: Nurse Triage Call Start: 03-08-2024 End: 03-08-2024 ambulatory Haider Hickman Facility:[facility] Start: 03-07-2024 End: 03-07-2024 ambulatory Haider Hickman Facility:[facility] Jocelyn silva Start: 02-29-2024 End: 02-29-2024 ambulatory HERBERTH Boom VAN Facility:[facility] Start: 02-29-2024 End: 02-29-2024 Patient encounter [...] End: 02-05-2024 ambulatory FRANCOISE SINGLETARY Facility:[facility] Start: 02-05-2024 End: 02-05-2024 Patient encounter procedure Francoise Singletary MD Work Phone: Pain Management Comment on above: Chronic toe pain, ri ght foot (Primary Dx); Painful diabetic neuropathy (HCC); Class 3 severe obesity with serious comorbidity and body mass index (BMI) of 40.0 to 44.9 in adult, unspecified obesity type (HCC) Start: 01-24-2024 End: 01-24-2024 ambulatory Araceli BERMUDEZ Facility:[facility] Start: 01-22-2024 End: 01-22-2024 ambulatory MACY MCPHERSON Not Available Start: 01-04-2024 End: 01-04-2024 ambulatory Araceli BERMUDEZ Facility:[facility] Start: 01-03-2024 End: 01-03-2024 ambulatory CHELLE FELDMANEDMUNDO Not Available Start: 12-29-2023 End: 12-29-2023 ambulatory rAaceli BERMUDEZ Facility:[facility] Start: 12-26-2023 End: 12-26-2023 ambulatory Haider Hickman Facility:[facility] Start: 12-14-2023 End: 12-14-2023 ambulatory BASSAM AGUILAR Not Available Start: 12-04-2023 End: 12-04-2023 ambulatory Miguelangel Mac MD Facility: [facility] Start: 10-18-2023 End: 10-18-2023 ambulatory Araceli BERMUDEZ Facility: [facility] Start: 10-16-2023 End: 10-16-2023 ambulatory Miguelangel Mac MD Facility: [facility] Start: 09-25-2023 End: 09-25-2023 ambulatory Miguelangel Mac MD Facility: [facility] Start: 09-20-2023 End: 09-20-2023 ambulatory Haider Hickman Facility:[facility] Joc[facility] Start: 09-12-2023 End: 09-12-2023 ambulatory Tondra Mapus Other [facility] Other Start: 09-12-2023 Telephone encounter Aldo Middleton [facility] Start: 09-11-2023 (DM) Diabetes Tondra Mapus [facility] Start: 09-11-2023 End: 09-12-2023 ambulatory MD Scarlet Johnson Work Phone: [facility] Other Start: 09-11-2023 End: 09-11-2023 Discharged Recurring MD Scarlet Johnson Work Phone: [facility] Work Phone: Start: 09-11-2023 End: 09-11-2023 Patient encounter procedure MD Scarlet Johnson Work Phone: [facility] Work Phone: Start: 08-24-2023 End: 08-24-2023 Patient encounter procedure MD Scarlet Johnson Work Phone: [facility] Start: 08-24-2023 End: 08-24-2023 ambulatory MD Scarlet Johnson Work Phone: [facility] Work Phone: Start: 08-24-2023 Office outpatient ne w 60 minutes Eligio Soni [facility] Start: 08-24-2023 End: 08-24-2023 Patient encounter procedure MD Scarlet Johnson Work Phone: [facility] V[facility] Surgery Work Phone: Start: 08-21-2023 End: 08-21-2023 ambulatory Haider Hickman Facility:[facility] [place] [facility] Start: 07-26-2023 End: 07-26-2023 ambulatory Haider Hickman Facility:[facility] [place] [facility] Start: 06-14-2023 End: 06-14-2023 ambulatory Tondra Mapus Other [facility] Other Start: 06-14-2023 Telephone encounter Tona Emi [facility] Start: 06-09-2023 End: 06-09-2023 ambulatory Carito West Other [facility] Other Start: 06-09-2023 Nursing evaluation o f patient and report Carito West [facility] Start: 06-09-2023 Registered Recurring MD Scarlet franks Work Phone: [facility] Work Phone: Start: 05-31-2023 End: 05-31-2023 ambulatory Tondra Mapus Other [facility] Other Start: 05-31-2023 Telephone encounter Tondrboom Middleton [facility] Start: 03-07-2023 Follow-up encounter Terry [facility]no [facility] Start: 03-07-2023 End: 03-08-2023 ambulatory Terry Kelley [facility] Other Start: 02-17-2023 End: 02-17-[address] JOVITA WOODARD . Facility: Start: 02-14-2023 (DM) Diabetes Tondra Juanitaus [facility] Start: 02-14-2023 End: 02-14-2023 ambulatory Tondra Mapus Other [facility] Other Start: 01-20-2023 ([facility] RD FU) [facility] F/ U [employer] Social Media Editor Carito West [facility] Start: 01-20-2023 End: 01-20-2023 ambulatory Carito West Other [facility] Other Start: 01-05-2023 End: 01-05-2023 ambulatory Terry Kelley Other [facility] Other Start: 01-05-2023 Follow-up encounter Terry moreno [...] Facility:H1 Start: 11-24-2022 ([facility] WMNI) WMN Init ial Provider Carito West [facility] Start: 11-24-2022 End: 11-24-2022 ambulatory Carito West Other [facility] Other Start: 11-22-2022 End: 11-22-2022 ambulatory Tondra Mapus Other [facility] Other Start: 11-22-2022 Nursing evaluation o f patient and report Tona Juanita [facility] Start: 11-18-2022 End: 11-18-2022 ambulatory Terry Kelley Other [facility] Other Start: 11-18-2022 Nutrition therapy Terry Kelley [facility] Start: 11-08-2022 End: 11-09-[address] SCARLET JOHNSON . Facility:H1 Start: 11-07-2022 (DM) Diabetes Tondra Middleton [facility] Start: 11-07-2022 End: 11-07-2022 ambulatory Tondra Mapus Other [facility] Other Start: 10-18-2022 (RD) Vascular Specialists Carito West [facility] Start: 10-18-2022 End: 10-18-2022 ambulatory Carito West Other [facility] Other Start: 08-18-2022 End: 08-19-[address] BRITTNY MORALES Facility:H1 Start: 2022 ([facility] DB FU) [facility] Diabetes F/U Carito West [facility] Start: 2022 End: 08-11-[address] ARACELI BERMUDEZ [email or web address] Other Start: 07-29-2022 End: 07-30-[address] SCARLET JOHNSON . Facility: Start: 07-27-2022 (DM) Diabetes Tondra Mapus [facility] Start: 07-27-2022 End: 07-27-2022 ambulatory Tondra Mapus Other [facility] Other Start: 06-08-2022 (Social Media Editor) Social Media Editor Carito moreno [facility] Start: 06-08-2022 End: 06-08-2022 ambulatory Carito West Other [facility] Other Start: 04-21-2022 (DM) Diabetes Tondra Mapus [facility] Start: 04-21-2022 End: 04-21-2022 ambulatory Tondra Mapus Other [facility] Other Start: 04-21-2022 Telephone encounter Tondra Mapus [facility] Start: 04-07-2022 End: 04-08-[address] SCARLET JOHNSON . Facility: Start: 10-21-2021 (DM) Diabetes Tondra Mapus [facility] Start: 10-21-2021 End: 10-21-2021 ambulatory Tondra Mapus Other [facility] Other Start: 07-21-2021 Office outpatient ne w 45 minutes Morgan Kunz [facility] Procedures Date Procedure Procedure Detail Performing Clinician Start: 06-19-2024 Radex foot complete minimum 3 views Shyam Cam DPM [facility] Work Phone: Start: 06-12-2024 Arthrocentesis aspir &/inj major jt/bursa w/o us Chelle Brandon S IRON WORK[employer] Work Phone: Start: 08-24-2023 Duplex scan of lower limb veins MD Scarlet Johnson Work Phone: Plan of Treatment Date Care Activity Detail Author Start: 07-23-2025 ambulatory Ambulatory Facility:[facility] Start: 05-15-2025 ambulatory Ambulatory Facility:[facility] Roman Start: 01-21-2025 End: 01-21-2025 Patient encounter procedure 01/21/2025 3:10 PM EDT Office Visit [facility] [address] [place] [phone] Macy Mcpherson, PA [address] [place] [address] [facility] Start: 12-26-2024 End: 12-26-2024 Patient encounter procedure 12/26/2024 11:00 AM EDT Procedure Visit [facility] [address] [facility] [address] [place] [address] Bassam Aguilar, DPM [address] [facility] 5 [place] [address] [facility] Start: 10-17-2024 End: 10-17-2024 Patient encounter procedure [facility] Comment on above: Diabetes mellitus du e to underlying condition with diabetic polyneuropathy, 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 intermission coordinator insulin use ([facility]) (Primary Dx); Pain due to onychomycosis of toenails of both feet; Venous insufficiency Start: 08-29-2024 End: 08-29-2024 Patient encounter procedure 08/29/2024 9:30 AM EST Office Visit [facility] [address] [place] [phone] Matthew May DO [address] [place] [address] Arrived [facility] Comment on above: Arrived Start: 08-27-2024 End: 08-27-2024 Patient encounter procedure 08/27/2024 3:15 PM EST Office Visit [facility] [place] [phone] Gallo Gayle DO [address] [place], [place] [id number] [facility] [place] [facility] Start: 08-14-2024 End: 08-14-2024 Patient encounter procedure 08/14/2024 10:00 AM EST Office Visit Neurology Pain [address] [facility] [place] [address] Chiqui Robles MD [address] [place], [place] [id number] 1 Month Follow Up Neurology Pain Comment on above: 1 Month Follow Up Start: 2024 RSV Vaccine (1 - 1-d ose 75+ series) RSV Vaccine (1 - 1-dose 75+ series) [facility] Start: 08-08-2024 End: 08-08-2024 Patient encounter procedure [facility] Comment on above: Diabetes mellitus du e to underlying condition with diabetic polyneuropathy, 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 intermission coordinator insulin use (CMS/HCC) (Primary Dx); Pain due to onychomycosis of toenails of both feet; Amputation of toe of right foot (CMS/HCC) Start: 08-06-2024 End: 08-06-2024 Patient encounter procedure 08/06/2024 9:45 AM EDT Office Visit [facility] [address] [place] [address] Khai Heard DO [address] [place] [address] [facility] Start: 07-31-2024 End: 07-31-2024 Patient encounter procedure [facility] Comment on above: Arrived Start: 07-24-2024 End: 07-24-2024 Patient encounter procedure [facility] Comment on above: Arrived Start: 07-23-2024 End: 07-23-2024 Patient encounter procedure [facility] Comment on above: Internal derangement of left shoulder (Primary Dx); Arthritis of left acromioclavicular joint; Complete tear of left rotator cuff, 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 traumatic Start: 07-18-2024 End: 07-18-2024 Patient encounter procedure 07/18/2024 9:50 AM EDT Procedure Visit [facility] [address] [place] [address] Bassam Aguilar, AUGUSTIN [address] [facility] 5 [place] [address] [facility] Start: 07-09-2024 End: 07-09-2024 Patient encounter procedure 07/09/2024 9:45 AM EDT Office Visit [facility] [address] [facility] [address] [place] [address] Arlen Sanchez DO [address] [facility] [address] [place] [address] [facility] Start: 07-03-2024 End: 07-03-2024 Professional / ancillary services management 07/03/2024 2:00 PM EDT Ancillary Procedure [facility] [address] [place] [phone] [facility] Start: 07-03-2024 End: 07-03-2024 Patient encounter procedure [facility] Comment on above: Arrived Start: 07-02-2024 End: 07-02-2024 Professional / ancillary services management 07/02/2024 10:15 AM EDT Ancillary Procedure [facility] [address] [place] [phone] [facility] Start: 07-01-2024 End: 07-01-2025 MR Shoulder - left WO contrast MR shoulder left wo IV contrast Imaging Routine Internal derangement of left shoulder Expected: 07/01/2024 (Approximate), Expires: 07/01/2025 [facility] Work Phone: Comment on above: Expected: 07/01/2024 (Approximate), Expires: 07/01/2025 Start: 07-01-2024 End: 07-01-2024 Patient encounter procedure [facility] Comment on above: Left shoulder pain, unspecified chronicity (Primary Dx); Arthritis of left acromioclavicular joint; Glenohumeral arthritis, left; Impingement of left shoulder Start: 06-25-2024 End: 06-25-2024 Patient encounter procedure 06/25/2024 2:20 PM EDT Office Visit [facility] [address] [place] [phone] Kajal Cam, DPM [facility] [address] [place] [address] [facility] Start: 06-24-2024 End: 06-24-2024 Patient encounter procedure 06/24/2024 9:15 AM EDT Office Visit [facility] [address] [facility] [address] [place] [address] Chelle Brandon NP [address] [facility] [address] [place] [address] [facility] Start: 06-20-2024 End: 06-20-2024 Patient encounter procedure 06/20/2024 12:20 PM EDT Procedure Visit [facility] EXT DEP Shyam Cam, DPM [facility] [address] [place] [address] [facility] Start: 06-19-2024 End: 06-19-2024 Patient encounter procedure 06/19/2024 8:30 AM EDT Office Visit [facility] [address] [facility] [place] [phone] Shyam Cam, DPM [facility] [address] [place] [address] [facility] Start: 06-12-2024 End: 06-12-2024 Patient encounter procedure [facility] Comment on above: Left shoulder pain, unspecified chronicity (Primary Dx); Arthritis of left acromioclavicular joint; Glenohumeral arthritis, left Start: 06-09-2024 Covid-19 Vaccine ( season) Covid-19 Vaccine ( season) [facility] Start: 06-09-2024 Influenza vaccination C [facility] Start: 06-07-2024 End: 06-07-2024 ambulatory 06/07/2024 12:30 PM EDT [facility] [address] [id number] Britney Hyde, PhD [address] [place] [address] [facility] Comment on above: [facility] Start: 05-06-2024 End: 05-06-2024 ambulatory 05/06/2024 9:00 AM EDT [facility] [address] [place] [address] Morgan Trinidad, Therapist [address] [place] [address] [facility] Comment on above: PAIN PSYCH Start: 04-17-2024 End: 04-17-2024 Patient encounter procedure 04/17/2024 10:00 AM EDT Office Visit Pain Management [address] [place] [address] Eufemia Ortiz PA-C [address] [place] [address] SUTURAL REMOVAL Pain Management Comment on above: SUTURAL REMOVAL Start: 04-03-2024 End: 04-03-2024 Admission to same day surgery center 04/03/2024 10:00 AM EDT - 04/03/2024 11:05 AM EDT Surgery [facility] Management [address] [place] [address] Herberth Araujo MD, PhD [address] [place] [address] Right L4 and L5 DRG Trial Pain Management Comment on above: Right L4 and L5 DRG Trial Start: 04-03-2024 End: 04-03-2024 Prq impltj nstim electrode array epidural PERCUTANEOUS IMPLANT LEAD NEUROSTIM EPIDURAL TRIAL Chronic toe pain, right foot Complex regional pain syndrome type II of right lower limb 04/03/2024 10:00 AM EDT [facility] Start: 04-03-2024 Subsequent hospital visit by physician 04/03/2024 10:00 AM EDT Hospital Encounter Pain Management [address] [place] [address] Herberth Araujo MD, PhD [address] [place] [address] Chronic toe pain, right foot [M79.674, G89.29], Complex regional pain syndrome type II of right lower limb [G57.71] Pain Management Comment on above: Chronic toe pain, ri ght foot [M79.674, G89.29], Complex regional pain syndrome type II of right lower limb [G57.71] Start: 10-09-2023 Advance Directive Discussion Advance Directive Discussion [facility] Start: 10-09-2023 Behavioral Health Screening Behavioral Health Screening [facility] Start: 06-09-2023 Covid-19 Vaccine ( season) Covid-19 Vaccine ( season) [facility] Start: 10-16-2019 Pneumococcal Vaccine : 65+ Years (2 of 2 - PCV) Pneumococcal Vaccine: 65+ Years (2 of 2 - PCV) [facility] Start: 2014 Pneumococcal Vaccine : 65+ (1 of 1 - PCV) Pneumococcal Vaccine: 65+ (1 of 1 - PCV) [facility] Start: 2009 RSV Vaccine (1 - 1-d ose 60+ series) RSV Vaccine (1 - 1-dose 60+ series) [facility] Start: 2009 RSV Vaccine (1 - Ris k 60-74 years 1-dose series) RSV Vaccine (1 - Risk 60-74 years 1-dose series) [facility] Start: 1999 Shingrix Vaccine (1 of 2) Rabago grix Vaccine (1 of 2) [facility] Start: 1994 Diabetes Screening Diabetes Screenin g [facility] Start: 1994 Screening for malign ant neoplasm of colon [facility] Start: 1984 Lipid panel Lipid Screening [facility] Start: 1968 Urine microalbumin profile DTa P,Tdap,Td Vaccine (1 - Tdap) [facility] Start: 1967 Annual PCP Team Independent Driver hai Disease Visit Annual PCP Team Chronic Disease Visit [facility] Start: 1967 Anxiety Screening Anxiety Screening [facility] Start: 1967 Depression Screening Depression Scre ening [facility] Start: 1967 Hepatitis B surface antibody level LDL Cholesterol [facility] Start: 1967 Hepatitis C screening Hepatitis C Sc ang [facility] Start: 1959 Diabetic foot examination Diabetic F oot Exam [facility] Start: 1959 Glaucoma screening Dilated Retinal E xam [facility] Start: 1959 Hepatitis B screening Urine Albumin:Creatinine Ratio [facility] Start: 1955 Pneumococcal Vaccine : 65+ (1 of 2 - PCV) Pneumococcal Vaccine: 65+ (1 of 2 - PCV) [facility] Start: 1954 Hemoglobin A1c measurement HbA1C [facility] Start: 1949 Screening for malign ant neoplasm of colon [facility] Immunizations Immunization Date Immunization Notes Care Provider Margarita sunshine 07-31-2024 influenza virus vaccine, unspecified formulation Khai Heard DO Work Phone: [facility] 06-15-2023 influenza virus vaccine, unspecified formulation Chelle Brandon S IRON WORKER Work Phone: [facility] 12-30-2020 COVID-19 Vaccine Moderna - Documentation Purposes Only Morgan Kunz Other [facility] 12-02-2020 COVID-19 Vaccine Moderna - Documentation Purposes Only Morgan Kunz Other [facility] Payers Date Payer Category Payer Private Health Insurance [employer] [id number] 2021 Unknown [id number] [id number]. [id number] 2017 Self-pay [id number] 2017 Unknown [id number] 2012 Medicare [id number]. 1.13.159.2. [id number] 2012 Medicare [id number] 1959 Medicare [id number] 2.16.840.1.843885.19 1959 Unknown [id number] 2.16.840.1.706667.19 1949 Unknown [id number] 2.16.840.1.129090.3.579.2. 593 1949 Unknown [id number] 2.16.840.1.410505.3.579.2. 593 1949 Unknown [id number] 2.16.840.1.636485.3.579.2. 593 1949 Unknown [id number] 2.16.840.1.258912.3.579.2. 593 1949 Unknown [id number] 2.16.840.1.337249.3.579.2. 593 1949 Unknown [id number] 2.16.840.1.612840.3.579.2. 593 1949 Unknown [id number] 2.16.840.1.227857.3.579.2. 593 1949 Unknown [id number] 2.16.840.1.265935.3.579.2. 593 1949 Unknown [id number] 2.16.840.1.731296.3.579.2. 593 1949 Unknown [id number] 2.16.840.1.307406.3.579.2. 593 1949 Unknown [id number] 2.16.840.1.114216.3.579.2. 593 1949 Unknown [id number] 2.16.840.1.953105.3.579.2. 593 1949 Unknown [id number] 2.16.840.1.900130.3.579.2. 727 1949 Unknown [id number] 2.16.840.1.710850.3.579.2. 72 1949 Unknown [id number] 2.16.840.1.300920.3.579.2. 727 1949 Unknown [id number] 2.16.840.1.799731.3.579.2. 72 1949 Unknown [id number] 2.16.840.1.413636.3.579.2. 727 1949 Unknown [id number] 2.16.840.1.370763.3.579.2. 72 1949 Unknown [id number] 2.16.840.1.183506.3.579.2. 727 1949 Unknown [id number] 2.16.840.1.063244.3.579.2. 72 1949 Unknown [id number] 2.16.840.1.980147.3.579.2. 727 1949 Unknown [id number] 2.16.840.1.905508.3.579.2. 72 1949 Unknown [id number] 2.16.840.1.105617.3.579.2. 72 1949 Unknown [id number] 2.16.840.1.901397.3.579.2. 72 1949 Unknown [id number] 2.16.840.1.219766.3.579.2. 1949 Unknown [id number] 2.16.840.1.973009.3.579.2. 1949 Unknown [id number] 2.16.840.1.867020.3.579.2 1949 Unknown [id number] 2.16.840.1.335850.3.579.2. 196 1949 Unknown [id number] 2.16840.1.911151.3.579.2. 1949 Unknown [id number] 2.16.840.1.254489.3.579.2. 196 1949 Unknown [id number] 2.16.840.1.220297.3.579.2. 1949 Unknown [id number] 2.16.840.1.990519.3.579.2. 196 1949 Unknown [id number] 2.16840.1.762765.3.579.2. 1949 Unknown [id number] 2.16.840.1.637765.3.579.2. 72 1949 Unknown [id number] 2.16.840.1.351471.3.579.2. 1949 Unknown [id number] 2.16.840.1.262405.3.579.2. 1949 Unknown [id number] 2.16.840.1.987567.3.579.2. 1949 Unknown [id number] 2.16.840.1.025785.3.579.2. 1949 Unknown [id number] 2.16.840.1.360065.3.579.2. 1949 Unknown [id number] 2.16.840.1.157746.3.579.2. 1949 Unknown [id number] 2.16.840.1.664994.3.579.2. 1949 Unknown [id number] 2.16.840.1.864624.3.579.2. 1949 Unknown [id number] 2.16.840.1.536011.3.579.2 1949 Unknown [id number] 2.16.840.1.150151.3.579.2 1949 Unknown [id number] 2.16.840.1.845951.3.579.2 1949 Unknown [id number] 2.16.840.1.367289.3.579.2 1949 Unknown [id number] 2.16.840.1.322475.3.579.2. 1258 1949 Unknown [id number] 2.16.840.1.777366.3.579.2. 1258 1949 Unknown [id number] 2.16.840.1.772295.3.579.2. 1258 1949 Unknown [id number] 2.16.840.1.994737.3.579.2. 1258 1949 Unknown [id number] 2.16.840.1.248942.3.579.2. 1258 1949 Unknown [id number] 2.16.840.1.727727.3.579.2. 1258 1949 Unknown [id number] 2.16.840.1.007982.3.579.2. 125 1949 Unknown [id number] 2.16.840.1.523079.3.579.2. 1258 1949 Unknown [id number] 2.16.840.1.218251.3.579.2. 1258 1949 Unknown [id number] 2.16840.1.212319.3.579.2. 1258 1949 Unknown [id number] 2.16.840.1.961547.3.579.2. 1258 1949 Unknown [id number] 2.16840.1.831331.3.579.2. 1258 1949 Unknown [id number] 2.840.1.924930.3.579.2. 1258 1949 Unknown [id number] 2.840.1.273932.3.579.2. 1258 1949 Unknown [id number] 2.840.1.424724.3.579.2. 1258 1949 Unknown [id number] 2.0.1.843261.3.579.2. 1258 1949 Unknown [id number] 2.840.1.161496.3.579.2. 1258 1949 Unknown [id number] 2.840.1.411884.3.579.2. 1258 1949 Unknown [id number] 2.16840.1.410415.3.579.2. 1258 1949 Unknown [id number] 2.16840.1.703185.3.579.2. 1258 1949 Unknown [id number] 2.840.1.429028.3.579.2. 1258 Unknown Standard [facility] [id number] Unknown [id number] 2.16.840.1.418965.3.579.2. 531 Unknown [id number] 2.16.840.1.440938.3.579.2. 531 Unknown [id number] 2.16.840.1.263739.3.579.2. 531 Social History Date Type Detail Facility Unknown if ever smoked [facility] Other Start: 02-05-2024 End: 08-29-2024 Sex Assigned At [facility] Start: 1950 Sex Assigned At Male [facility] Start: 07-09-2018 End: 05-18-2023 Tobacco smoking status [facility] Never smoked tobacco (finding) [facility] Tobacco smoking status [facility] Tobacco smoking consumption unknown [facility] Start: 02-05-2024 End: 08-29-2024 History of Social function [facility] National Score (1-100), lower number is lower risk 67 [facility] Start: 1950 Sex Assigned At Not on file [facility] Start: 05-18-2023 End: 02-29-2024 Tobacco use and exposure Smokeless tobacco non-user [facility] Start: 02-29-2024 End: 10-17-2024 Alcohol intake Ex-drinker (finding) [facility] NEGATED: Highlighted rowStart: NINF History of tobacco use Passive smoker [facility] Medical Equipment Procedure Code Equipment Code Equipment Original Text Equipment Identifier Dates ESWL, one kidney STENT CONTOUR 4 .8FR X 22-30CM [facility] Start: 06-07-2018 ESWL, one kidney STENT CONTOUR 4 .8FR X 22-30CM [facility] Start: 06-07-2018 Start: 12-11-2017 Lead Axium Slimt ip 1mm 5mm Space 50mm Neurostimulator Front Load 4 [id number] Start: 04-03-2024 Clinical Notes 07-21-2021 to 10-17-2024 Bassam Aguilar, AUGUSTIN - 10/17/2024 10:20 AM Jeni May DO - 08/29/2024 9:30 AM Chiqui Live MD - 08/14/2024 10:29 Claudia Saez MD - 08/14/2024 9:55 AM EST Note Date & Type Note Facility 10-17-2024 History of Present illness Narrative Patient: Dong Whitmore : 1950 PCP: Haider Hickman MD SUBJECTIVE Patient presents today with a CC of elongated, thick nails. Pt states nails have been elongated and thick for many years and cause pain with ambulation in shoegear. Pt has tried previous treatment with minimal relief. Pt presents today for nail care and treatment with dm2 Hx of back issues and pain with hx if DDD. Partial toe amputations to the right 1 2 and 3 digits Allergies: Allergies Allergen Reactions Cefuroxime Unknown Celecoxib Unknown Cephalosporins Other Reaction(s): Unknown Reaction Diflunisal Unknown Dulaglutide Unknown Ibuprofen Unknown Liraglutide Unknown Metformin Hcl Unknown Naproxen Unknown Nsaids Other Rofecoxib Unknown Sulindac Unknown Past Medical History: Past Medical History: Diagnosis Date COVID-19 vaccine series completed Diabetes (CMS/HCC) Hypercholesterolemia (CMS/HCC) Hypertension (CMS/HCC) PVD (peripheral vascular disease) (CMS/[facility]) Medications: Current Outpatient Medications: acarbose (Precose) 50 MG tablet, Take 50 mg by mouth in the morning and 50 mg at noon and 50 mg in the evening. Take with meals., Disp: , Rfl: acetaminophen-codeine (Tylenol w/ Codeine #3) 300-30 MG tablet, , Disp: , Rfl: aspirin 81 MG EC tablet, Take 81 mg by mouth Daily, Disp: , Rfl: buPROPion SR (Wellbutrin SR) 150 MG 12 hr tablet, Take 150 mg by mouth in the morning., Disp: , Rfl: buPROPion XL (Wellbutrin XL) 300 MG 24 hr tablet, Take 300 mg by mouth Daily (Patient not taking: Reported on 08/29/2024), Disp: , Rfl: Calcium Carb-Cholecalciferol 600-5 MG-MCG tablet, Calcium 600, Disp: , Rfl: clindamycin (Cleocin) 300 MG capsule, Take 300 mg by mouth in the morning and 300 mg before bedtime. (Patient not taking: Reported on 08/29/2024), Disp: , Rfl: Januvia 100 MG tablet, Take 100 mg by mouth in the morning., Disp: , Rfl: LORazepam (Ativan) 0.5 MG tablet, Take 1 tablet (0.5 mg) by mouth See administration instructions for 1 dose 1 tablet by mouth 1 hour prior to MRI, must have someone drive you to the appt and home from the appt (Patient not taking: Reported on 08/29/2024), Disp: 1 tablet, Rfl: 0 losartan (Cozaar) 50 MG tablet, Take 100 mg by mouth at bedtime, Disp: , Rfl: memantine (Namenda) 10 MG tablet, Take 10 mg by mouth Daily (Patient not taking: Reported on 08/29/2024), Disp: , Rfl: metoprolol succinate XL (Toprol-XL) 50 MG 24 hr tablet, Take 50 mg by mouth in the morning and 50 mg before bedtime., Disp: , Rfl: metoprolol tartrate (Lopressor) 50 MG tablet, Take 50 mg by mouth in the morning and 50 mg before bedtime. (Patient not taking: Reported on 08/29/2024), Disp: , Rfl: nitroglycerin (Nitrostat) 0.4 MG SL tablet, PLACE 1 TABLET UNDER TONGUE EVERY 5 MINS, UP TO 3 DOSES NEEDED FOR CHEST PAIN, Disp: , Rfl: pioglitazone (Actos) 30 MG tablet, Take 30 mg by mouth in the morning., Disp: , Rfl: pregabalin (Lyrica) 75 MG capsule, Take 75 mg by mouth in the morning and 75 mg before bedtime., Disp: , Rfl: simvastatin (Zocor) 40 MG [...] needed for severe pain or moderate pain (Patient not taking: Reported on 08/29/2024), Disp: 20 tablet, Rfl: 0 triamcinolone (Kenalog) 0.1 % ointment, Apply topically 2 (two) times a day as needed (Rash) Avoid face, armpits and groin. (Patient not taking: Reported on 08/29/2024), Disp: 60 g, Rfl: 11 venlafaxine (Effexor) 37.5 MG tablet, Take 37.5 mg by mouth in the morning and 37.5 mg before bedtime., Disp: , Rfl: venlafaxine (Effexor) 75 MG tablet, , Disp: , Rfl: Social History: Social History [...] Partner Violence: Unknown (11/30/2023) [facility] [place] [facility] Fear of Current [...] underlying condition with diabetic polyneuropathy, 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 intermission coordinator insulin use ([facility]) 2. Pain due to onychomycosis of toenails of both feet 3. Venous insufficiency PLAN Debride nails in length and thickness digits 1 through 7 Patient educated today on proper diabetic foot [...] Bassam Aguilar DPM documented in this encounter [facility] 08-29-2024 History of Present illness Narrative Images [...] believes a few years ago in the [place] office. Review of Systems Constitutional: Negative for [...] Diagnosis Date COVID-19 vaccine series completed Diabetes ([facility]) Hypercholesterolemia ([facility]) Hypertension ([facility]) PVD (peripheral vascular disease) ([facility]) Past Surgical History: Procedure Laterality Date CARDIAC [...] , wrist extensors , wrist flexor , baffle installer strength 5/5. LUE Strength deltoid , biceps , triceps , wrist extensors , wrist flexor , baffle installer strength 5/5. RLE Strength illopsoas, quadriceps, tibialis [...] reflex 0. Del Real's sign negative. Coordination: Sdgfqj-aj-zzrq testing and rapid alternating movements are normal [...] is already established with pain management in [place] and suggest that they can see them [...] to ketamine infusions with pain management in [place]. I suggested, if epidural is not successful, that they consider follow up thereof. The patient can follow up with us on an as-needed basis. Thank you for consultation. Pt has been fully educated on their diagnosis, lab results, treatment options, follow up plan, return instructions, and discussion of mental health issues documented in this encounter [facility] 08-14-2024 Note HNO ID: [id number] Author: CHIQUI ROBLES MD Service: ? Author Type: Physician Type: Progress Notes Filed: 08/26/2024 16:34 Note Text: [facility] STAFF PHYSICIAN NOTE OF PERSONAL INVOLVEMENT [...] - psychotherapy was utilized during the visit. Faps-uf-tkld time: 26109 (16-37 mins) actual time spend in psychotherapy 18 minutes Type of therapeutic intervention:Supportive Target symptoms: Pain coping skills and Acceptance and adapting Progress/Session notes:processing Interactive Complexity: None STAFF PHYSICIAN:: Chiqui Robles MD DATE of SERVICE: 08/14/2024 [facility] 08-14-2024 History of Present illness Narrative [facility] STAFF PHYSICIAN NOTE OF PERSONAL INVOLVEMENT [...] - psychotherapy was utilized during the visit. Fowx-qf-autn time: [id number] (16-37 mins) actual time spend in psychotherapy 18 minutes Type of therapeutic intervention:Supportive Target symptoms: Pain coping skills and Acceptance and adapting Progress/Session notes:processing Interactive Complexity: None STAFF PHYSICIAN:: Chiqui Robles MD DATE of SERVICE: 08/14/2024 [facility] [place] August 14, 2024 This is a face [...] 2024 10:37 AM documented in this encounter [facility] 08-14-2024 Note HNO ID: [id number] Author: CLAUDIA CHILEL MD Service: ? Author Type: Resident Type: Progress Notes Filed: 08/14/2024 10:51 Note Text: [facility] [place] August 14, 2024 This is a face [...] MD, AMANDA August 14, 2024 10:37 AM [facility] 08-08-2024 History of Present illness Narrative Patient: [...] Partner Violence: Unknown (11/30/2023) Re[facility] [place] [facility] Fear of Current [...] underlying condition with diabetic polyneuropathy, 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 half-way insulin use ([facility]) 2. Pain due to onychomycosis of toenails of both feet 3. Amputation of toe of right foot ([facility]) PLAN Debride nails in length and thickness [...] Bassam Aguilar DPM documented in this encounter [facility] 08-07-2024 Note [place] [facility] Note Reason for cardiology [...] DM type 2 (diabetes mellitus, type 2) ([facility]), HLD (hyperlipidemia), HTN (hypertension), Neuropathy, and ULISES [...] DAY SUBCUTANEOUSLY DIRECTED, Disp: , Rfl: omega 2-isy-pbn-fish oil (Fish OiL) 1,200 (144-216) mg capsule, [...] right bundle branch block Echo 07/08/2024 at [facility] Echo 12/30/2022 Echo 11/15/2016 Nuclear stress test 12/29/2022 at [facility] EKG portion Assessment and Plan: Coronary artery disease, status post prior PTCA of the left circumflex artery and RCA in 2012 Last stress test 12/30/2022 which was negative for ischemia with normal ejection fraction He is on aspirin, metoprolol, and simvastatin. Clinically stable Severe LVH on recent echo probably due to uncontrolled hypertensi (more content not included)... [facility] 07-31-2024 History of Present illness [...] < 3 seconds Digits 1-5 bilateral NEURO: [place] Crista 5.07 monofilament was intact B/L. Vibratory [...] underlying condition with diabetic polyneuropathy, 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 intermission coordinator insulin use ([facility]) 3. Amputation of right great toe ([facility]) PLAN Patient had no improvement with diagnostic injection. I feel the this point the pain is not related to his toe but appears to be from his low back sciatic issue spoke with his primary care physician they plan to work him up for low back concerns Shyam Cam DPM FACBRENDA documented in this encounter [facility] 07-24-2024 History of Present illness Narrative [...] Diagnosis Date COVID-19 vaccine series completed Diabetes ([facility] Hypercholesterolemia ([facility]) Hypertension ([facility]) PVD (peripheral vascular disease) ([facility]) Medications: Current Outpatient Medications: acarbose (Precose) 50 [...] < 3 seconds Digits 1-5 bilateral NEURO: Groveton Crista 5.07 monofilament was intact B/L. Vibratory [...] leg. AUGUSTIN Horn documented in this encounter [facility] 07-23-2024 History of Present illness Narrative Images from the original note were not included. HISTORY OF PRESENT ILLNESS: Dong Boom Whitmore is an 73 y.o. @ male. Chief complaint LT shoulder pain LT Shoulder: here for MRI results [facility] 07/15/24 8 1/2 weeks ago pt fell, went to [facility] ER on 05/24/24 and had xrays done. [...] he does these. TX: LT shoulder xrays [facility] 05/24/24, acetiminophen with codeine, ice, bengay, 06/12/24 [...] IMAGING: MRI of the shoulder from the [facility] had revealed a full-thickness tear of the [...] Sanchez/darion Sanchez D.O. documented in this encounter [facility] 07-19-2024 Note Cardiovascular Medic [facility] SUBJECTIVE No chief complaint on file. Dong Whitmore is a 73 y.o. male here for follow-up. HPI PMHx: hypertension, hyperlipidemia, and coronary artery disease (previous PCI to LCx and RCA, - 2012) Patient presents for follow-up. He [...] Obesity Sleep apnea Type 2 diabetes mellitus ([facility]) Complex regional pain syndrome type II of right lower limb Coronary arteriosclerosis in [place] artery Current use of insulin ([facility]) Dietary counseling and surveillance Past Medical History: Diagnosis Date CAD (coronary artery disease) DM type 2 (diabetes mellitus, type 2) ([facility]) HLD (hyperlipidemia) HTN (hypertension) Neuropathy ULISES (obstructive [...] DAY SUBCUTANEOUSLY DIRECTED, Disp: , Rfl: omega 4-qdi-loj-fish oil (Fish OiL) 1,200 (144-216) mg capsule, [...] Behavior: Behavior nor (more content not included)... [facility] 07-18-2024 Telephone encounter Note Patient told to schedule an appt to discuss in detail [facility] 07-18-2024 Miscellaneous Notes Patient told to schedule an appt to discuss in detail documented in this encounter [facility] 07-17-2024 Note Patient Education Nephrology Dietary [...] ? 8 oz (237 mL) of milk, pacmrji-bjshxmzjrpav-rxaxu milk, and calcium-fortifiedfruit juice. Calcium-fortified means that [...] Spinach (cooked), rhubarb, beets, sweet potatoes, and Ghanaian chard. ? Peanuts. ? Potato chips, andorran fries, and baked potatoes with skin on. ? Nuts and nut products. ? Chocolate. ? If you regularly take a diuretic medicine, make sure to eat at least 1 or 2 servings of fruits or vegetables that are high in potassium each day. These include: ? Avocado. ? Banana. ? [place], prune, carrot, or tomato juice. ? Baked [...] fish oil, or vitamin B6. ? Take gmdx-att-rczqfnk and prescription medicines only as told by your health care provider. These include suppleme (more content not included)... [facility] 07-04-2024 Telephone encounter Note Patient's called regarding MRI. Patient is now getting it done at [facility]. Patient's is requesting volume be sent [place] [facility] [place]. Please advise [phone]. [facility] 07-04-2024 Miscellaneous Notes Patient's called regarding MRI. Patient is now getting it done at [facility]. Patient's is requesting volume be sent to [facility] [place]. Please advise [phone]. documented in this encounter [facility] 07-03-2024 History of Present illness Narrative Images from the original note were not included. Patient: Dong Whitmore : 1950 PCP: Haider Hickman MD SUBJECTIVE This is a 73 y.o. male that presents today The patient is here status post distal Syme amputation of 3rd digit procedure. Postop week 2.5 They deny fevers, chills, nausea, vomiting, calf [...] Allergies Allergen Reactions Cefuroxime Unknown Celecoxib Unknown Diflunisal Unknown Dulaglutide Unknown Liraglutide Unknown Metformin Hcl Unknown Naproxen Unknown Rofecoxib Unknown Sulindac Unknown Past Medical History: Past Medical History: Diagnosis Date COVID-19 vaccine series completed Diabetes ([facility]) Hypercholesterolemia ([facility] Hypertension ([facility]) PVD (peripheral vascular disease) ([facility]) Medications: Current Outpatient Medications: acarbose (Precose) 50 [...] mouth in the morning., Disp: , Rfl: losartan (Cozaar) 50 MG tablet, Take 50 [...] < 3 seconds Digits 1-5 bilateral NEURO: Groveton Crista 5.07 monofilament was intact B/L. Vibratory [...] 1. Acquired deformity of right toe PLAN Today we applied a dry sterile dressing with betadine to the incision site. Sutures removed today recommended 1 more week in the surgical shoe followed by return to regular shoe gear reassess his pain level in 2 weeks AUGUSTIN Horn documented in this encounter [facility] 07-01-2024 History of Present illness Narrative Subjective Patient ID: Dong Whitmore is a 73 y.o. male. LT Shoulder Pt is RT handed. 3 weeks s/p subacromial depo medrol injection (06/12/24) with 0% improvement. States he is worse he ran into the corner of his TV about 1 week ago. 5 weeks and 5 days ago pt fell, went to [facility] ER on 05/24/24 and had xrays done. He fell down concrete stairs and landed on the LT shoulder. DOI 05/24/24. Presents in sling, and with cane. States he uses the cane for balance issues. States he also has a lot of RT foot pain and is currently on an ATB for a sore on his leg. He has never injured this shoulder before. Pain at rest 1/10. Pain at worst 5-6/10 with movement. He will get pain superiorly, and lately it is also more deep in the joint . Pain occas radiates into his neck, this is happening more frequent since running into the tv. Denies pain meds. He is using bengay w/o relief. Occas uses ice and heat both with little relief. Denies N/T. Admits swelling in the shoulder, notes it seems like he has a bump, she noticed a few weeks ago, he thinks this has gotten smaller. Denies waking at night. Denies cracking/popping. His ROM has improved, notes he can move it much more than last visit. Here with his Zulema. He has been doing pendulum exercises, he states he gets relief while he does these. TX: LT shoulder xrays [facility] 05/24/24, acetiminophen with codeine, ice, bengay, 06/12/24 subacromial depo medrol injection Objective Left Shoulder Exam Tests Lopez test: positive Shoulder Musculoskeletal Exam Inspection Left Ecchymosis: none Palpation Left Tenderness: present Range of Motion Left Active ROM: pain. Special Tests Left Rotator Cuff Signs Lopez test: positive Assessment/Plan Encounter Diagnoses: ICD-10-CM 1. Left shoulder pain, unspecified chronicity M25.512 2. Arthritis of left acromioclavicular joint M19.012 3. Glenohumeral arthritis, left M19.012 4. Impingement of left shoulder M25.812 5. Internal derangement of left shoulder M24.812 MR shoulder left wo IV contrast discussion of due to failure of conservative treatment would recommend an MRI of the left shoulder without contrast, activities as tolerated, f/u s/p MRI documented in this encounter [facility] 06-26-2024 Note Cardi[facility] SUBJECTIVE Chief Complaint Patient presents with [...] with lymphedema. He follows with endocrinology in [place]. He has MILLER - this is unchanged. [...] at a weightloss program at [facility]. He is seeing the card folder. 01/23/2023 He is down about 10lbs since [...] Obesity Sleep apnea Type 2 diabetes mellitus ([facility]) Complex regional pain syndrome type II of right lower limb Coronary arteriosclerosis in [place] artery Current use of insulin ([facility]) Dietary counseling and surveillance Past Medical History: Diagnosis Date CAD (coronary artery disease) DM type 2 (diabetes mellitus, type 2) ([facility]) HLD (hyperlipidemia) HTN (hypertension) Neuropathy ULISES (obstructive [...] venlafaxine 37.5 mg (more content not included)... [facility] 06-26-2024 Note Patient here for 1 y ear follow up CAD, hypertension, and hyperlipidemia. Had lipid panel this past December. Had foot surgery last week. Denies chest pain, SOB, palpitations, and lightheadedness/syncope. 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 Review of Systems Cardiovascular: Positive for leg swelling (RLE). Musculoskeletal: Positive for joint pain. All other systems reviewed and are negative. [facility] 06-25-2024 History of Present illness Narrative Images from the original note were not included. Patient: Dong Whitmore : 1950 PCP: Haider Hickman MD SUBJECTIVE This is a 73 y.o. male that presents today The patient is here status post distal Syme amputation of 3rd digit procedure. Postop week right. They deny fevers, chills, nausea, vomiting, calf pain and shortness of breath. Pain level is being managed with ice elevation and pain medication. They have been relatively compliant with her postoperative care. Patient can only take a muscle relaxer for pain relief he states the toe feels exactly the same as prior to the surgery. Allergies: Allergies Allergen Reactions Cefuroxime Unknown Celecoxib Unknown Diflunisal Unknown Dulaglutide Unknown Liraglutide Unknown Metformin Hcl Unknown Naproxen Unknown Rofecoxib Unknown Sulindac Unknown Past Medical History: [...] mouth in the morning., Disp: , Rfl: losartan (Cozaar) 50 MG tablet, Take 50 [...] < 3 seconds Digits 1-5 bilateral NEURO: Groveton Crista 5.07 monofilament was intact B/L. Vibratory sensation was intact B/L Musculoskeletal: Muscle strength was +5 over 5 all intrinsic and extrinsic muscles tested. Negative Homans test noted Surgical site evaluation: The incision site is healing well without signs infection. Minimal swelling noted. Consistent with the patient's level of surgery consistent with time frame postoperatively. Sutures remain intact without signs of dehiscence. Radiographs: AP/MO/LAT: Diagnostic ultrasound: ASSESSMENT 1. Acquired deformity of right toe 2. Diabetes 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, 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 half-way insulin use (CMS/HCC) 3. Venous insufficiency 4. Non-pressure chronic ulcer of other part of right lower leg with fat layer exposed (CMS/HCC) PLAN Today we applied a dry sterile dressing with betadine to the incision site. Covered the incision with 4x4s, Kerlix and Tubigrip. Applied Medihoney over the wound bed that is almost completely healed right leg. The Patient is to continue ice and elevation on a regular basis. They were reminded to remain compliant with her weight-bearing status in the ambulatory surgical device. I have explained to the patient that he needs a couple of weeks for the area to heal. He will continue taking the muscle relaxers for pain relief he is going to follow up with Dr. Howe. AUGUSTIN Sam documented in this encounter [facility] 06-19-2024 Miscellaneous Notes Sx rx documented in this encounter [facility] 06-19-2024 Telephone encounter Note Sx rx [facility] 06-19-2024 History of Present illness Narrative Patient: Dong Whitmore : 1950 PCP: Haider Hickman MD SUBJECTIVE This is a 73 y.o. male that presents today as a dm2 and had partial toe amputations to the right hallux and right 2nd digit Patient has chronic pain to the distal aspect of the DIPJ region of the right 3rd digit Patient has had unrelenting pain to the right 3rd toe for the past few years with discussion of possible amputation of toe in the past with Dr. Aguilar he has severe pain has been going to pain management for the issue toe is severely dislocated and arthritic and wishes to have a distal Symes procedure performed. The patient is here to discuss their upcoming surgery. Planned procedure is distal Syme's amputation right 3rd digit The patient has exhausted conservative care and wishes for surgical intervention. They have attempted numerous conservative options including: Shoe gear modifications, anti-inflammatory medications both steroid all and nonsteroidal, orthotic devices, cortisone injections, immobilization, physical therapy to no avail. They are here to sign consent forms and to address any other questions that may exist. Allergies: Allergies Allergen Reactions Cefuroxime Unknown Celecoxib Unknown Diflunisal Unknown Dulaglutide Unknown Liraglutide Unknown Metformin Hcl Unknown Naproxen Unknown Rofecoxib Unknown Sulindac Unknown Past Medical History: [...] mouth in the morning., Disp: , Rfl: losartan (Cozaar) 50 MG tablet, Take 50 [...] by mouth at bedtime., Disp: , Rfl: triamcinolone (Kenalog) 0.1 % ointment, Apply topically [...] Social History Narrative Not on file Social Determinants of Health Financial Resource Strain: Not on file Food Insecurity: Not on file Transportation Needs: Not on file Physical Activity: Not on file Stress: Not on file Social Connections: Not on file Intimate Partner Violence: Unknown (11/30/2023) [facility] [place] [facility] Fear of Current [...] of right 2nd digit and right hallux Plus 1 pitting edema to bilateral ankles [...] distal digit of the right 3rd toe significant pain with direct palpation of the distal DIPJ joint right 3rd digit medial deviation of the distal aspect of the toe quite deformed and swollen and painful. Three views were taken today AP/MO/LAT foot: Complete dislocation of the right 3rd DIPJ joint medial deviation of the toe significant swelling noted of the toe macrodactyly noted ASSESSMENT 1. Acquired deformity of right toe PLAN Have discussed and patient the past with partial or total toe amputation to the right 3rd digit for pain relief. Patient like to have done under local anesthesia and has consultation tomorrow. Patient has exhausted conservative care including pain management cortisone injections padding shoe gear modifications to no avail. The patient was educated on the pre, brittani, postoperative course of the procedure in great detail. We discussed further conservative therapies which the patient has attempted and has failed. I discussed the surgical procedure in great detail including the risks and possible complications. We discussed the following complications in great detail including but not limited to: Pain, infection, prolonged swelling, numbness, tingling, burning, nonhealing wound, nonunion, malunion, chronic pain, development of complex regional pain syndrome, development of deep venous thrombosis. Patient fully understood all possible risks and complications. All questions have been asked and answered. They have consented for the above-stated procedure. AUGUSTIN Horn documented in this encounter [facility] 06-18-2024 History of Present illness Narrative Patient: Dong Whitmore : 1950 PCP: Haider Hickman MD SUBJECTIVE This is a 73 y.o. male that presents today as a dm2 and had partial toe amputations to the right hallux and right 2nd digit Patient has chronic pain to the distal aspect of the DIPJ region of the right 3rd digit discussed possible surgical intervention in the past and has patient does have history is of neuralgia peripheral neuropathy and back issues Patient has history of venous stasis as well and does not wear compression stockings. He is seen today for follow-up of 2nd opinion for possible toe amputation by Dr. Cam . Patient has had unrelenting pain to the right 3rd toe for the past few years with discussion of possible amputation of toe in the past. Allergies: Allergies Allergen Reactions Cefuroxime Unknown Celecoxib Unknown Diflunisal Unknown Dulaglutide Unknown Liraglutide Unknown Metformin Hcl Unknown Naproxen Unknown Rofecoxib Unknown Sulindac Unknown Past Medical History: [...] mouth in the morning., Disp: , Rfl: losartan (Cozaar) 50 MG tablet, Take 50 [...] by mouth at bedtime., Disp: , Rfl: triamcinolone (Kenalog) 0.1 % ointment, Apply topically [...] Social History Narrative Not on file Social Determinants of Health Financial Resource Strain: Not on file Food Insecurity: Not on file Transportation Needs: Not on file Physical Activity: Not on file Stress: Not on file Social Connections: Not on file Intimate Partner Violence: Unknown (11/30/2023) [facility] [place] Safety & Environment Fear of Current [...] of right 2nd digit and right hallux Plus 1 pitting edema to bilateral ankles [...] of the right 3rd toe ASSESSMENT 1. Acquired deformity of right toe 2. Diabetes 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, 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 half-way insulin use ([facility]) 3. Amputation of right great toe ([facility]) PLAN Have discussed and patient the past with partial or total toe amputation to the right 3rd digit for pain relief. Patient like to have done under local anesthesia and has consultation tomorrow with . He would like to have this done as soon as possible and discussed with patient that may be able to be done as soon as this week but if not either myself for partner may be able to get case done the following week for patient. Patient discussed with . Discussed conservative and surgical treatment options for patient today including postoperative time frame and surgical procedure in detail. Patient may continue with conservative treatments including jbmc-azm-zgpfuyj anti-inflammatories and other treatments suggested today. Patient may want to be scheduled for surgical intervention in the near future. DIPJ amputation of the right 3rd digit under local anesthetic and patient to have done in the near future by either myself or . Bassam Aguilar DPM documented in this encounter [facility] 06-12-2024 History of Present illness Narrative Associated Order(s): L Inj/Asp: L subacromial bursa Post-Procedure Diagnose(s): Impingement of left shoulder Subjective Patient ID: Dong Whitmore is a 73 y.o. male. LT Shoulder Pt is RT handed. States he is better but his shoulder still hurts a lot 2 weeks 5 days ago pt fell, went to [facility] ER on 05/24/24 and had xrays done. He fell down concrete stairs and landed on the LT shoulder. DOI 05/24/24. Presents in sling, and with cane. States he uses the cane for balance issues. States he also has a lot of RT foot pain and is currently on an ATB for a sore on his leg. He has never injured this shoulder before. Pain at rest 1/10. Pain at worst 7/10 with movement. He will get pain superiorly. Pain occas radiates into his neck. Denies pain meds. He is using bengay with some relief. Denies N/T. Admits swelling in the shoulder, notes it seems like he has a bump, she noticed last night. Denies waking at night. Denies cracking/popping. His ROM has improved, notes he can move it much more than last visit. Here with his Zulema. He has been doing pendulum exercises [place]: LT shoulder xrays [facility] 05/24/24, acetiminophen with codeine, ice, bengay Objective Left Shoulder Exam Range of Motion Active abduction: 170 Muscle Strength Abduction: 4/5 Tests Lopez test: positive Drop arm: negative Shoulder Musculoskeletal Exam Inspection Left Ecchymosis: none Palpation Left Tenderness: present Anterior shoulder: moderate Range of Motion Left Active ROM: pain. Active forward elevation: 170. Shoulder active abduction: 170. Active external rotation at side: 60. Internal rotation: L1. Strength Left Abduction: 4/5. Special Tests Left Rotator Cuff Signs Lopez test: positive Lift-off sign: negative Drop arm test: negative AC Joint Signs Active horizontal adduction pain: negative L Inj/Asp: L subacromial bursa on 06/12/2024 9:39 AM Indications: pain Details: 20 G needle, posterior approach Medications: 40 mg methylPREDNISolone acetate 40 MG/ML Utilizing aseptic technique with universal precautions . Pt given injection Left Shoulder SA space Procedure, treatment alternatives, risks and benefits explained, specific risks discussed. Consent was given by the patient. Patient was prepped and draped in the usual sterile fashion. Assessment/Plan Encounter Diagnoses: ICD-10-CM 1. Left shoulder pain, unspecified chronicity M25.512 2. Arthritis of left acromioclavicular joint M19.012 3. Glenohumeral arthritis, left M19.012 Discussion of options, pt notes he would like an injection, side effects of bleeding and infection discussed, would like to proceed with the injection, using aspectic technique 40 mg of depo medrol was injected into the left shoulder subacromial space, pt tolerated well, bandaid applied, may do activities as tolerated, f/u in 2 weeks. documented in this encounter [facility] 06-07-2024 Note HNO ID: [id number] Author: BRITNEY HYDE, PhD Service: ? Author Type: Psychologist Type: Progress Notes Filed: 06/07/2024 14:24 Note Text: [facility] for Comprehensive Pain Recovery Behavioral Medicine Group Session I have communicated my name and active licensure. The patient's identity and physical location were verified at the time of this visit. Either the patient or their legal outside energy sales representatives has been informed of the risks and [...] a copy of the consent form on [employer]. The patient consented to a virtual visit and their location was confirmed. Patient location: [facility] confirmed Patient Name: Dong Whitmore CC#: [id number] Date of service: June 07, 2024 Subjective: [...] additional pain management education Britney Hyde, PhD [phone] [facility] 06-07-2024 History of Present illness Narrative [facility] Behavioral Medicine [facility] Session I have communicated my name and active licensure. The patient's identity and physical location were verified at the time of this visit. Either the patient or their legal outside energy sales representatives has been informed of the risks and [...] a copy of the consent form on [employer]. The patient consented to a virtual visit and their location was confirmed. Patient location: [facility] confirmed Patient Name: Dong Whitmore CC#: [id number] Date of service: June 07, 2024 Subjective: [...] additional pain management education Britney Hyde, PhD [phone] documented in this encounter [facility] 06-03-2024 Telephone encounter Note Patient called wanted to know if he is able to make an appointment. Says his shoulder is hurting worse and the site of the RT LT shoulder is turning yellow. Appointment? [facility] 06-03-2024 Miscellaneous Notes Patient called wanted to know if he is able to make an appointment. Says his shoulder is hurting worse and the site of the RT LT shoulder is turning yellow. Appointment? documented in this encounter [facility] 05-23-2024 Note Patient Education Infectious Disease [...] these instructions at home: Medicines ? Take owsc-uzg-scqrmon and prescription medicines only as told by [...] provider. Document Revised: 07/07/2022 Document Reviewed: 07/07/2022 Exegy Patient Education ? 2022 Queue-it. [facility] 05-13-2024 Note Patient Education Endocrinology Correction Insulin [...] changing your diet, or holidays. ? New sspj-lcj-uegdbps or prescription medicines. ? Illness, stress, or [...] happens, someone else should call emergency services (857 in the [place] right away. ? Your [...] sure you disc (more content not included)... [facility] 05-06-2024 Note [facility] ID: [id number] Author: MORGAN TRINIDAD, Therapist Service: ? Author Type: Therapist Type: Progress Notes Filed: 05/07/2024 08:20 Note Text: [facility] Recovery Psychological Evaluation May 06, 2024 Dong Haim [facility]#: [id number] I have communicated my name and active licensure. The patient's identity and physical location were verified at the time of this visit. Either the patient or their legal outside energy sales representatives has been informed of the risks and [...] a copy of the consent form on Guide. The patient consented to a virtual visit and their location was confirmed. Patient location: [place], [place] CPT Code: 4231641 Virtual Psych Diagnotic Eval Appointment Start: 9 AM This 73 year old retired for 15 years (he was having some medical problems, but they offered an early prison package that was attractive at the time) male lives with his in [place], [place]. 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 He was referred by Chiqui Robles MD for psychological evaluation in the context of chronic pain. This consultation was shared with the referral source via the [facility] electronic medical record. He believes the [...] needed. pioglitazone (ACT (more content not included)... [facility] 04-24-2024 Note HNO ID: [id number] Author: CHIQUI ROBLES MD Service: ? Author Type: Physician Type: Progress Notes Filed: 04/24/2024 11:26 Note Text: [facility] STAFF PHYSICIAN NOTE OF PERSONAL INVOLVEMENT IN CARE IMPRESSION: Complex regional pain syndrome Adjustment Disorder Tried multiple injections, procedures, surgeries. No benefit Tried SCS and recently DRG without success. Discussed ketamine PLAN: Ketamine infusions Consider scrambler therapy Psych psychology Memantine 5mg Psychotherapy Add-on Progress Note Due to medical condition and comorbid psychological and behavioral concerns - psychotherapy was utilized during the visit. Uuwm-jr-tkrf time: 30809 (16-37 mins) actual time spend in psychotherapy [...] which included preparing to see the patient, lpob-ii-cmjx patient care, completing clinical documentation, performing a medically appropriate examination, and counseling and educating the patient/family/caregiver. As noted, the patient's clinical situation is complex and serious with significant comorbidity of pain and functional limitations. This requires higher levels of time, intensity, and expense with longitudinal care and support. STAFF PHYSICIAN:: Chiqui Robles MD DATE of SERVICE: 04/24/2024 [facility] 04-24-2024 History of Present illness Narrative [facility] STAFF PHYSICIAN NOTE OF PERSONAL INVOLVEMENT IN CARE IMPRESSION: Complex regional pain syndrome Adjustment Disorder Tried multiple injections, procedures, surgeries. No benefit Tried SCS and recently DRG without success. Discussed ketamine PLAN: Ketamine infusions Consider scrambler therapy Psych psychology Memantine 5mg Psychotherapy Add-on Progress Note Due to medical condition and comorbid psychological and behavioral concerns - psychotherapy was utilized during the visit. Jogl-on-ktdc time: 57617 (16-37 mins) actual time spend in psychotherapy [...] which included preparing to see the patient, fjet-uy-xaco patient care, completing clinical documentation, performing a medically appropriate examination, and counseling and educating the patient/family/caregiver. As noted, the patient's clinical situation is complex and serious with significant comorbidity of pain and functional limitations. This requires higher levels of time, intensity, and expense with longitudinal care and support. STAFF PHYSICIAN:: Chiqui Robles MD DATE of SERVICE: 04/24/2024 [facility] Neurological [place] April 24, 2024 This is a face [...] Parish Tucker MD documented in this encounter [facility] 04-24-2024 Note HNO ID: [id number] Author: PARISH RIOS MD Service: ? Author Type: Resident Type: Progress Notes Filed: 04/24/2024 11:26 Note Text: [facility] Neurological [place] April 24, 2024 This is a face [...] Memantine Pain psychology consult Parish Tucker MD [facility] 03-21-2024 Telephone encounter Note Spoke with patient and notified him of provider recommendations. Verbalized understanding. Emilee So RN [facility] 03-21-2024 Miscellaneous Notes Spoke with patient and notified him of provider recommendations. Verbalized understanding. Emilee So RN Ok per Dr Araujo to proceed with trial - still recommending to keep appt with ID Spoke with patient at request of district court judge as patient has questions about referral to infectious disease. Patient states that he spoke with his PCP, Dr. Hickman ([phone]) who spoke with Dr. Vega in Infectious disease at [facility]. Dr. Hickman ordered lab work at [...] Emilee So RN documented in this encounter [facility] 03-21-2024 Telephone encounter Note Ok per Dr Araujo to proceed with trial - still recommending to keep appt with ID [facility] Work Phone: 03-19-2024 Telephone encounter Note Spoke with patient at request of district court judge as patient has questions about referral to infectious disease. Patient states that he spoke with his PCP, Dr. Hickman ([phone]) who spoke with Dr. Vega in Infectious disease at [facility]. Dr. Hickman ordered lab work at [...] move forward as planned. Emilee So RN [facility] 03-15-2024 Note Microbiology PROCEDURE: Blood Culture Charcoal [R1] SOURCE: Blood BODY SITE: COLLECTED DATE/TIME: 03/08/2024 08:30 EDT RECEIVED DATE/TIME: 03/08/2024 09:02 EDT START DATE/TIME: 03/08/2024 09:02 EDT FREE TEXT SOURCE: michel Hickman MD, Haider Hickman MD, Haider Bee FINAL REPORTS Final Report [] Verified Date/Time: 03/15/2024 12:00 EDT No growth at 7 days. Performing Locations R1: This test was performed at: [facility], [address] [place] [address], [address] [place] [address], [facility] Comment on above: Performed By: #### 1 [id number] #### [facility] [address] [place] [id number] 03-15-2024 Note Microbiology PROCEDURE: Blood Culture Charcoal [...] Locations R1: This [facility] at: [facility], [address] [place] [address], [address] [place] [address], [facility] Comment on above: Performed By: #### 1 [id number] #### [facility] [address] [place] [address]24 Instructions Senthil Giraldo MD - 02/29/2024 1:38 PM EDT - Right DRG trial - Obtain psychological evaluation report (patient reports he just had this done ~two months ago) and send to [facility] Management [facility] - ID consult - Rule out infectious risk with due to the dermatitis. - Follow up: Return to clinic for the above procedure documented in this encounter [facility] 02-29-2024 Note HNO ID: [id number] Author: HERBERTH ARAUJO MD, PhD Service: ? Author Type: Physician Type: Progress Notes Filed: 03/18/2024 19:05 Note Text: [facility] Pain Management Department New Patient Consultation Referring Physician: SELF Chief Complaint: Right third toe pain SUBJECTIVE: Dong Whitmore is a 73 year old male with a pertinent past medical history of diabetes who presents to [facility] Pain Management Center for the evaluation of right third toe pain. 15-year history of right third toe pain. He notes that over this time the pain has become increasingly severe has caused him significant discomfort and suffering. He has been to many specialists in the [facility] area-over the course of the past [...] depression 10-14 Mo (more content not included)... [facility] 02-29-2024 History of Present illness Narrative Images from the original note were not included. [facility] Pain Management Department New Patient Consultation Referring Physician: SELF Chief Complaint: Right third toe pain SUBJECTIVE: Dong Whitmore is a 73 year old male with a pertinent past medical history of diabetes who presents to [facility] for the evaluation of right third toe pain. 15-year history of right third toe pain. He notes that over this time the pain has become increasingly severe has caused him significant discomfort and suffering. He has been to many specialists in the [facility]-over the course of the past 15 years, [...] history of diabetes who presents to [facility] for the evaluation of right third toe pain. He describes a 15-year history of right third toe pain. He notes that over this time the pain has become increasingly severe has caused him significant discomfort and suffering. He has been to many specialists in the [facility]-over the course of the past 15 years, [...] done ~two months ago) and send to [facility] - ID consult [...] Araujo MD, PhD documented in this encounter [facility] 02-06-2024 Telephone encounter Note Called and spoke to patient. Gave him this message from Dr. Singletary: I'd suggest seeking an appointment with the following doctors who perform DRG implantation: Dr. Carlisle, Dr. Araujo, Dr. Dan, Dr. Cortés Patient voiced understanding. [facility] 02-06-2024 Miscellaneous Notes Called and spoke [...] giving him the number to schedule at [facility] to discuss DRG? I'd suggest seeking an appointment with the following doctors who perform DRG implantation: Dr. Carlisle, Dr. Araujo, Dr. Dan, Dr. Moo Heard and Dr. Kamara may do DRG - I'm not sure. Thanks Lela! ----- Message ----- From: Livia Lester PA-C Sent: 02/05/2024 2:07 PM EDT To: Francoise Singletary MD No one on this side of [facility] that I know of does DRG so, we also send to [facility] I would just have Lela call the patient and tell him this is not something you do and tell him he needs to be seen a Main ----- Message ----- From: Francoise Singletary MD Sent: 02/05/2024 1:45 PM EDT To: Livia Lester PA-C Nc! He was supposed to get referred for consideration of DRG - the only people I know who do DRG are at [facility]. How do we refer him there? From what I remember, Van Melendez, Ni and Moo do DRG - do you know of anyone else? documented in this encounter [facility] 02-06-2024 Telephone encounter Note ----- Message from Francoise Singletary MD sent at 02/05/2024 3:12 PM EDT ----- Do you mind calling him and giving him the number to schedule at [facility] to discuss DRG? I'd suggest seeking an appointment with the following doctors who perform DRG implantation: Dr. Carlisle, Dr. Araujo, Dr. Dan, Dr. Moo Heard and Dr. Kamara may do DRG - I'm not sure. Thanks Lela! ----- Message ----- From: Livia Lester PA-C Sent: 02/05/2024 2:07 PM EDT To: Francoise Singletary MD No one on this side of [facility] that I know of does DRG so, we also send to [facility] I would just have Lela call the patient and tell him this is not something you do and tell him he needs to be seen a Main ----- Message ----- From: Francoise Singletary MD Sent: 02/05/2024 1:45 PM EDT To: Livia Lester PA-C Nc! He was supposed to get referred for consideration of DRG - the only people I know who do DRG are at [facility]. How do we refer him there? From what I remember, Van Melendez, Ni, and Moo do DRG - do you know of anyone else? [facility] 02-05-2024 Instructions Francoise Singletary MD - 02/05/2024 1:01 PM EDT Thank you for taking the time to come and see me today! Please schedule an appointment for: [facility] Consult Please follow up with [facility] Neurology and Podiatry Please send all of your Podiatry, Neurology, and Pain Management records to us I will refer you to a provider who performs DRG to discuss this Please come back to see me as needed documented in this encounter [facility] 02-05-2024 History of Present illness Narrative Images from the original note were not included. [facility] Pain Management Department Consultation Date: February [...] seen other pain providers. [facility] Neurology OV 02/01/22 Assessment and Plan 71 [...] has been to many specialists in the [facility] area-over the course of the past [...] outside records. Unfortunately during our appointment today, [facility] was down I was unable to [...] I noted before, he appears today while [facility] was down, and I not [...] will refer him to a doctor at [facility] for consideration of DRG and to discuss the risks, benefits, alternatives. Diagnostics/Referrals: -Chronic Pain Recovery Program referral Referral to [facility] podiatry, neurology for second opinions 2. [...] the shared EMR documented in this encounter [facility] 02-05-2024 Note HNO ID: [id number] Author: FRANCOISE SINGLETARY MD Service: ? Author Type: Physician Type: Progress Notes Filed: 02/05/2024 15:14 Note Text: [facility] Pain Management Department Consultation Date: February [...] seen other pain providers. [facility] Neurology OV 02/01/22 Assessment and Plan 71 [...] has been to many specialists in the [place] area-over (more content not included)... [facility] 01-01-2024 Note [id number] [facility] 09-11-2023 Evaluation note Encounter Date Diagnosis Assessment [...] 6.9% 2. Blood glucose levels according to [employer] 3 cgm download 08/29/23-09/11/23 : Avg glucose [...] Current use of insulin (ICD-10 - Z79.4) [facility] 11-16-2023 Evaluation note* Encounter Date Diagnosis Assessment Notes Treatment Notes Treatment Clinical Notes Aug, Cellulitis of right lower extremity (ICD-10 - L03.115) I did thoroughly review all the studies from [place]. I do not have any images to [...] include weight loss exercise and compression therapy. [facility] 09-01-2023 Evaluation note* Encounter Date Diagnosis Assessment Notes Treatment Notes Treatment Clinical Notes Jun, Type 2 diabetes mellitus with diabetic chronic kidney disease (ICD-10 - E11.22) Dong and his came in today for [employer] 3 training and refresher on his [...] He was given a no cut [employer] to try and a brochure to buy them online. We discussed the Novolog pen and that he is to use it if his BG before a meal is greater than 150. He was able to dial the pen and knows how to put the pen needle on and deliver the dose. 30 minutes were spent educating the patient by Kamlesh Sparrow RN, [facility]. [facility] 05-30-2023 Evaluation note* Encounter Date Diagnosis [...] February, Metabolic syndrome X (ICD-10 - E88.81) [facility] 05-09-2023 Evaluation note* Encounter Date Diagnosis [...] last visit, continue with weight loss efforts [facility] 04-14-2023 Evaluation note* Encounter Date Diagnosis [...] the following goals: Add flavors to vegetables [facility] 03-30-2023 Evaluation note* Encounter Date Diagnosis [...] Dec, Metabolic syndrome X (ICD-10 - E88.81) [facility] 03-23-2023 NoteCARDIAC STRESS TEST Requesting Physician: [...] interpreted and reported nuclear myocardial perfusion imaging.[id number]* Encounter Date Diagnosis Assessment Notes Treatment Notes Treatment Clinical Notes Nov, Obesity, unspecified classification, unspecified obesity type, 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 serious comorbidity present (ICD-10 - E66.9) Nov, BMI 40.0-44.9, adult (ICD-10 - Z68.41) 16 Feb, 2023 Other Summary of Visi t: (A) Reviewed topics from previous RD visits (B) Extensively reviewed the plate method (C) Emphasized volume through vegetables Patient set the following goals: 1) Increase vegetables at dinner [facility] Other 02-14-2023 Evaluation note* Encounter Date Diagnosis [...] and his by Kamlesh Sparrow RN, [facility]. Reviewed cgm download 11/08/22-11/20/22: Avg glucose 171. >250-1%, >180-30%, 70-180-69%, <70-0%, <540%. CV 15..2%. 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 6. Prescriptions: Acarbose sent to [facility]. Sample baylee 2 cgm given today. [...] Baylee 2 sensor and an office owned, [employer]. His phone was not compatible with Baylee 2 or 3, or [employer] G6. He previously wore the Baylee 14 day system and did not need training on applying the device. I did train him on the use of the reader. He was vgiven samples of Grif Cp Bleacher Operator and Skin Tac to help keep the device in place. 45 minutes were spent educating the patient by Kamlesh Sparrow RN, [facility]. [facility] Other 01-10-2023 Evaluation note* Encounter Date Diagnosis [...] program2) Try roasted cronin peppers (recipe provided) [facility] Other 11-11-2022 NotePROCEDURE: XR FOOT RT MIN [...] Electronically authenticated by: BRITTNY MORALES Date: 2022-08-19 06:17[facility]11-02-2022 Evaluation note* Encounter Date Diagnosis Assessment [...] nuts or cheese + crackers -Only likes cymraes cheese,-Recommended 15g or less for snacks; so [...] likes those-Increase vegetable intake-Vegetables: corn, peas, carrots [facility] Other 10-19-2022 Evaluation note* Encounter Date Diagnosis [...] referral to Dr. Kelley for weight management [facility] Other 08-31-2022 Evaluation note* Encounter Date Diagnosis [...] and his would cook it for him [facility] Other 07-14-2022 Evaluation note* Encounter Date Diagnosis [...] improved glycemia. Pt would likek referral to card folder. Note pt has intolerance to glp1 class [...] of glucose/bp control to prevent further nephropathy [facility] Other 01-13-2022 Evaluation note* Encounter Date Diagnosis [...] medication issues. 6. Prescriptions: Pioglitazone sent to [facility]. 13 Oct, 2021 Hyperlipidemia, unspecified hyperlipidemia type (ICD-10 - E78.5) [...] brochure given today. Recommend call if interested. 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, not stated as uncontrolled Class 3 severe obesity with serious comorbidity and body mass index (BMI) of 40.0 to 44.9 in adult, unspecified obesity type (HCC) documented in this encounter [facility] note* Diagnosis Chronic toe pain, right foot- [...] right lower limb documented in this encounter [facility] note* Diagnosis Adjustment disorder with depressed mood- Primary Complex regional pain syndrome type II of right lower limb Chronic toe pain, right foot Class 3 severe obesity with serious comorbidity and body mass index (BMI) of 40.0 to 44.9 in adult, unspecified obesity type (HCC) [facility] Diagnosis Adjustment disorder with depressed mood- Primary Complex regional pain syndrome type II of right lower limb Chronic toe pain, right foot [facility] Adjustment disorder with depressed mood- Primary Complex regional pain syndrome type II of right lower limb Chronic toe pain, right foot [facility] Diagnosis Complex regional pain syndrome type II of right lower limb [facility] Diagnosis Acquired deformity of right toe- Primary Diabetes 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, 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 half-way insulin use (CMS/HCC) documented in this encounter [facility]* Diagnosis Internal derangement of left shoulder- Primary Arthritis of left acromioclavicular joint Complete tear of left rotator cuff, 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 traumatic Left shoulder pain, unspecified chronicity documented in this encounter [facility]* Diagnosis Acquired deformity of right toe- Primary Diabetes 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, 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 intermission coordinator insulin use (CMS/HCC) Amputation of right great toe (CMS/HCC) documented in this encounter [facility]* Diagnosis Amputation of toe of right foot (CMS/HCC)- Primary Diabetes 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, 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 half-way insulin use (CMS/HCC) Pain due to onychomycosis of toenails of both feet documented in this encounter [facility]* Diagnosis Internal derangement of left shoulder- Primary Complete tear of left rotator cuff, 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 traumatic documented in this encounter [facility]* Diagnosis Complex regional pain syndrome type II of right lower limb Chronic toe pain, right foot Class 3 severe obesity with serious comorbidity and body mass index (BMI) of 40.0 to 44.9 in adult, unspecified obesity type (HCC) [facility] Diagnosis Right foot pain- Primary Pain in soft tissues of limb Diabetic polyneuropathy associated with type 2 diabetes mellitus (CMS/HCC) documented in this encounter [facility]* Diagnosis Acquired deformity of right toe- Primary Left shoulder pain, unspecified chronicity- Primary Arthritis of left acromioclavicular joint Glenohumeral arthritis, left Impingement of left shoulder documented in this encounter [facility]* Diagnosis Acquired deformity of right toe- Primary Diabetes 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, 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 intermission coordinator insulin use ([facility]) Venous insufficiency Unspecified venous (peripheral) insufficiency Non-pressure chronic ulcer of other part of right lower leg with fat layer exposed ([facility]) Left shoulder pain, unspecified chronicity- Primary Arthritis of left acromioclavicular joint Glenohumeral arthritis, left Impingement of left shoulder documented in this encounter [facility]* Diagnosis Left shoulder pain, unspecified chronicity- Primary Arthritis of left acromioclavicular joint Glenohumeral arthritis, left Impingement of left shoulder documented in this encounter [facility]* Diagnosis Acquired deformity of right toe- Primary Diabetes 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, 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 half-way insulin use ([facility]) Amputation of right great toe ([facility]) documented in this encounter [facility]* Diagnosis Acquired deformity of right toe Left shoulder pain, unspecified chronicity- Primary Arthritis of left acromioclavicular joint Glenohumeral arthritis, left Impingement of left shoulder documented in this encounter [facility]* Diagnosis Left shoulder pain, unspecified chronicity- Primary Arthritis of left acromioclavicular joint Glenohumeral arthritis, left Impingement of left shoulder Internal derangement of left shoulder documented in this encounter [facility]* Diagnosis Acquired deformity of right toe- Primary documented in this encounter [facility]* Diagnosis Internal derangement of left shoulder- Primary documented in this encounter [facility]* Diagnosis Diabetes 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, 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 intermission coordinator insulin use ([facility])- Primary Pain due to onychomycosis of toenails of both feet Venous insufficiency Unspecified venous (peripheral) insufficiency documented in this encounter [facility] general Narrative - Reported* Type Description [...] first metatarsal 2-8-19 Hospitalization History see above [facility] Other History general Narrative - Reported* Type [...] Foot Surgery 10/27/2021 Hospitalization History see above [facility] Other Hisksxz general Narrative - Reported* Type Description Date [...] Foot Surgery 10/27/2021 Hospitalization History see above [facility] Other Reason for visit Narrative* Consultation (Routine) - Closed Specialty Diagnoses / Procedures Referred By Segundo t Referred To Contact Neurology Diagnoses Neuropathic pain, MRI / labs @ [facility] , ref by Dr Hickman Procedures ND OFFICE/OUTPATIENT NEW [facility] MDM 30 MINUTES NEURO NEW PATIENT Haider Hickman MD [address] [place] [address] Phone: tel: fax: Matthew May DO [address] [place] [address] Phone: tel: fax: Referral ID Status Reason Start Date Expiration Date V isits Requested Visits Authorized [id number] Closed Consult and Treat 08/22/2024 02/18/2025 1 [...] Referred By Contac t Referred To Contact Radiology Diagnoses Internal derangement of left shoulder Procedures MR shoulder left wo IV contrast Chelle Brandon NP [address] [address] Referral ID Status Reason Start Date Expiration Date V isits Requested Visits Authorized [id number] Pending Review 07/01/2024 12/28/2024 1 1 Specialty Diagnoses / Procedures Referred By Contac t Referred To Contact Orthopaedic Surgery Diagnoses Impingement of left shoulder Procedures L Inj/Asp: L subacromial bursa Chelle Brandon NP 112 [facility] [address] [place] [address] Referral ID Status Reason Start Date Expiration Date V isits Requested Visits Authorized [id number] Authorized 06/12/2024 12/09/2024 1 1 Specialty Diagnoses / Procedures Referred By Contac t Referred To Contact Diagnoses Acquired deformity of right toe Shyam Cam, DPM [facility] [address] [place] [address] Referral ID Status Reason Start Date Expiration Date V isits Requested Visits Authorized [id number] Pending Review 06/19/2024 12/16/2024 1 1 Specialty Diagnoses / Procedures Referred By Contac t Referred To Contact Diagnoses Complex regional pain syndrome type II of right lower limb Chronic toe pain, right foot Class 3 severe obesity with serious comorbidity and body mass index (BMI) of 40.0 to 44.9 in adult, unspecified obesity type (HCC) Procedures PROVIDER ORDERED FOLLOW UP OFFICE/OUTPATIENT [facility]DM 60 MINUTES Chiqui Robles MD [address] [place] [address] Referral ID Status Reason Start Date Expiration Date Visits Requested Visits Authorized [id number] Authorized PCP Requested Referral 06/25/2024 04/24/2025 1 1 Specialty Diagnoses / Procedures Referred By Contac t Referred To Contact Infectious Diseases Diagnoses Dermatitis of lower extremity Procedures CONSULT TO INFECTIOUS DISEASES OFFICE/OUTPATIENT [facility] 60 MINUTES Herberth Araujo MD, PhD [address] [phone] Referral ID Status Reason Start Date Expiration Date Visits Requested Visits Authorized [id number] Authorized PCP Requested Referral 02/29/2024 02/28/2025 1 1 Specialty Diagnoses / Procedures Referred By Contac t Referred To Contact Podiatry Diagnoses Chronic toe pain, right foot Painful diabetic neuropathy (HCC) Procedures CONSULT TO PODIATRY OFFICE/OUTPATIENT [facility] 60 MINUTES Francoise Singletary MD [address] [phone] Referral ID Status Reason Start Date Expiration Date Visits Requested Visits Authorized [id number] Authorized PCP Requested Referral 02/05/2024 02/04/2025 1 1 Specialty Diagnoses / Procedures Referred By Contac t Referred To Contact Neurology Diagnoses Chronic toe pain, right foot Painful diabetic neuropathy (HCC) Procedures CONSULT TO NEUROLOGY OFFICE/OUTPATIENT [facility] 60 MINUTES Francoise Singletary MD [address] [phone] Referral ID Status Reason Start Date Expiration Date Visits Requested Visits Authorized [id number] Authorized PCP Requested Referral 02/05/2024 02/04/2025 1 1 Specialty Diagnoses / Procedures Referred By Contac t Referred To Contact [facility] Diagnoses Chronic toe pain, right foot Painful diabetic neuropathy (HCC) Procedures [facility]SULT TO [facility] ([facility]) OFFICE/OUTPATIENT [facility] 60 MINUTES Francoise Singletary MD [address] [place] [address] Referral ID Status Reason Start Date Expiration Date Visits Requested Visits Authorized [id number] Pending Review PCP Requested Referral 02/05/2024 02/04/2025 1 1 Additional Source Comments REASON FOR VISIT (unrecogniz ed section and content) Reason Comments Consult Rt foot Reason Comments Established Patient Medication Update Reason Comments Nurse Triage Call Reason Comments New Patient Specialty Diagnoses / Procedures Referred By Contac t Referred To Contact [facility] Diagnoses Complex regional pain syndrome type II of right lower limb Chronic toe pain, right foot Class 3 severe obesity with serious comorbidity and body mass index (BMI) of 40.0 to 44.9 in adult, unspecified obesity type (HCC) Procedures CONSULT TO [facility] (CHRONIC PAIN) OFFICE/OUTPATIENT [facility] 60 MINUTES Herberth Araujo MD, PhD [address] [place] [address] Referral ID Status Reason Start Date Expiration Date Visits Requested Visits Authorized [id number] Pending Review PCP Requested Referral 04/03/2024 04/03/2025 1 1 Reason Comments Consult Reason Comments trek for success Reason Comments Med Change Request Reason Comments Foot/ankle Post-op WK 5 post op Reason Comments Pain Reason Comments Foot/ankle Post-op WK 6 post op Reason Comments Toenail Care Non DM Nails Reason Comments Pain MRI 07/15/24 Specialty Diagnoses / Procedures Referred By Contac t Referred To Contact Orthopaedic Surgery Diagnoses Complete tear of left rotator cuff, 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 traumatic Arlen Sanchez, DO [address] [facility] [address] [place] [address] Phone: tel: fax: Khai Heard, DO [address] [facility] [place] [address] Phone: tel: fax: Referral ID Status Reason Start Date Expiration Date V isits Requested Visits Authorized [id number] Closed Consult and Treat 07/23/2024 01/19/2025 1 1 Reason Comments Follow Up Specialty Diagnoses / Procedures Referred By Contac t Referred To Contact Diagnoses Complex regional pain syndrome type II of right lower limb Chronic toe pain, right foot Class 3 severe obesity with serious comorbidity and body mass index (BMI) of 40.0 to 44.9 in adult, unspecified obesity type (HCC) Procedures PROVIDER ORDERED FOLLOW UP OFFICE/OUTPATIENT [facility]DM 60 MINUTES Chiqui Robles MD [address] [place] [address] Referral ID Status Reason Start Date Expiration Date V isits Requested Visits Authorized [id number] Closed PCP Requested Referral 06/25/2024 04/24/2025 1 1 Reason Comments Foot/ankle Post-op WK 1 post - RT 3rd a mp Reason Comments Follow-up Reason Comments Foot Problem Wants 2nd opinion Reason Comments Toe Problem RT 3rd digit deformi ty Reason Comments Foot/ankle Post-op Week 2 post op: RT 3 rd amputation Reason Onset Date Comments MRI 07/04/2024 Reason Comments Toenail Care Non dm nail care (unrecognized sect ion and content) No Status [...] and content) DATE CREATED AUTHOR 02/20/2023 [facility] DATE CREATED AUTHOR AUTHOR'S ORGANIZ ATION 11/22/2023 [facility] DATE CREATED AUTHOR AUTHOR'S ORGANIZ ATION 03/09/2024 [facility] DATE CREATED AUTHOR AUTHOR'S ORGANIZ ATION 03/16/2024 [facility] DATE CREATED AUTHOR AUTHOR'S ORGANIZ ATION 07/19/2024 [facility] DATE CREATED AUTHOR AUTHOR'S ORGANIZ ATION 08/28/2024 [facility] DATE CREATED AUTHOR AUTHOR'S ORGANIZ ATION 09/06/2024 [facility] DATE CREATED AUTHOR AUTHOR'S ORGANIZ ATION 09/12/2024 [facility] DATE CREATED AUTHOR AUTHOR'S ORGANIZ ATION 09/19/2024 [facility] DATE CREATED AUTHOR AUTHOR'S ORGANIZ ATION 10/20/2024 [facility] DATE CREATED AUTHOR AUTHOR'S ORGANIZ ATION 10/21/2024 [facility] DATE CREATED AUTHOR AUTHOR'S ORGANIZ ATION 10/22/2024 [facility] dical Specialists EPIC Care Teams (unrecognized [...] Team Status: Inactive Member Role Status Dates cSarlet Johnson MD Primary Care Provider Active S [...] September 11, 2023 End: September 11, 2023 Child Development Teacher Relationship Specialty Start Date End Date Miguelangel Mac MD [address] [place] [address] 1 [place] [address] Referring Pain Management 01/29/24 Child Development Teacher Relationship Specialty Start Date End Date Miguelangel Mac MD [address] [place] [address] 1 [place] [phone] Referring Pain Management 01/29/24 Child Development Teacher Relationship Specialty Start Date End Date Miguelangel Mac MD [address] [place] [address] 1 [place] [phone] Referring Pain Management 01/29/24 Child Development Teacher Relationship Specialty Start Date End Date Miguelangel Mac MD [address] [place] [address] Referring Pain Management 01/29/24 Child Development Teacher Relationship Specialty Start Date End Date Hiader Hickman MD 1 [facility] [place] [address] PCP - General Family Medicine 03/26/24 Miguelangel Mac MD [address] [place] [address], [place] [address] Referring Pain Management 01/29/24 Child Development Teacher Relationship Specialty Start Date End Date Haider Hickman MD [address] [place] [address], [place] [address] PCP - General Family Medicine 03/26/24 Miguelangel Mac MD [address] [place] [address], [place] [address] Referring Pain Management 01/29/24 Child Development Teacher Relationship Specialty Start Date End Date Haider Hickman MD [address] [place] [address], [place] [address] PCP - General Family Medicine 03/26/24 Miguelangel Mac MD [address] [place] [address], [place] [address] Referring Pain Management 01/29/24 Child Development Teacher Relationship Specialty Start Date End Date Haider Hickman MD [address] [facility] [place] [address] PCP - General Family Medicine 03/26/24 Miguelangel Mac MD [address] [place] [address] 1 [address] [place] [address] Referring Pain Management 01/29/24 Child Development Teacher Relationship Specialty Start Date End Date Haider Hickman MD [address] [facility] [place] [address] PCP - General Family Medicine 03/26/24 Miguelangel Mac MD [address] [place] [address] 1 [address] [place] [address] Referring Pain Management 01/29/24 Child Development Teacher Relationship Specialty Start Date End Date Haider Hickman MD [address] [place] [address] PCP - General Family Medicine 03/26/24 Miguelangel Mac MD [address] [place] [address] [address] [place] [address] Referring Pain Management 01/29/24 Child Development Teacher Relationship Specialty Start Date End Date Haider Hickman MD [address] [place] [address], [place] [address] PCP - General Family Medicine 05/09/24 Child Development Teacher Relationship Specialty Start Date End Date Haider Hickman MD [address] [place] [facility] [address] PCP - General Family Medicine 05/09/24 Child Development Teacher Relationship Specialty Start Date End Date Haider Hickman MD [address] [place] [address] PCP - General Family Medicine 05/09/24 Child Development Teacher Relationship Specialty Start Date End Date Hadier Hickman MD [address] [place] [address] PCP - General Family Medicine 05/09/24 Child Development Teacher Relationship Specialty Start Date End Date Haider Hickman MD [address] [facility] [place] [address] PCP - General Family Medicine 05/09/24 Child Development Teacher Relationship Specialty Start Date End Date Haider Hickman MD [address] [facility] [place] [address] PCP - General Family Medicine 03/26/24 Miguelangel Mac MD [address] [place] [address] 1 [address] [place] [address] Referring Pain Management 01/29/24 Child Development Teacher Relationship Specialty Start Date End Date Haider Hickman MD [address] [place] [address], [place] [address] PCP - General Family Medicine 05/09/24 Child Development Teacher Relationship Specialty Start Date End Date Haider Hickman MD [address] [facility] [place] [address] PCP - General Family Medicine 05/09/24 Child Development Teacher Relationship Specialty Start Date End Date Haider Hickman MD [address] [facility] [place] [address] PCP - General Family Medicine 05/09/24 Child Development Teacher Relationship Specialty Start Date End Date Haider Hickman MD [address] [place] [address] PCP - General Family Medicine 05/09/24 Child Development Teacher Relationship Specialty Start Date End Date Haider Hickman MD [address] [place] [address] PCP - General Family Medicine 05/09/24 Child Development Teacher Relationship Specialty Start Date End Date Haider Hickman MD [address] [place] [address] PCP - General Family Medicine 05/09/24 Child Development Teacher Relationship Specialty Start Date End Date Haider Hickman MD [address] [place] [address] PCP - General Family Medicine 05/09/24 Child Development Teacher Relationship Specialty Start Date End Date Haider Hickman MD [address] [place] [address] PCP - General Family Medicine 05/09/24 Child Development Teacher Relationship Specialty Start Date End Date Haider Hickman MD [address] [place] [address] PCP - General Family Medicine 05/09/24 Child Development Teacher Relationship Specialty Start Date End Date Haider Hickman MD [address] [place] [address] PCP - General Family Medicine 05/09/24 Child Development Teacher Relationship Specialty Start Date End Date Haider Hickman MD [address] [place] [address] PCP - General Family Medicine 05/09/24 Goals [...] or prosecute any alcohol or drug abuse patient.[facility] the event this information is protected by the Federal Confidentiality of Alcohol and Drug Abuse Patient Records regulations: The Federal rules restrict any use of the information to criminally investigate or prosecute any alcohol or drug abuse patient.[facility] the event this information is protected by the Federal Confidentiality of Alcohol and Drug Abuse Patient Records regulations: The Federal rules restrict any use of the information to criminally investigate or prosecute any alcohol or drug abuse patient.[facility] the event this information is protected by the Federal Confidentiality of Alcohol and Drug Abuse Patient Records regulations: The Federal rules restrict any use of the information to criminally investigate or prosecute any alcohol or drug abuse patient.[facility]In the event this information is protected by the Federal Confidentiality of Alcohol and Drug Abuse Patient Records regulations: The Federal rules restrict any use of the information to criminally investigate or prosecute any alcohol or drug abuse patient.[facility]In the event this information is protected by the Federal Confidentiality of Alcohol and Drug Abuse Patient Records regulations: The Federal rules restrict any use of the information to criminally investigate or prosecute any alcohol or drug abuse patient.[facility]In the event this information is protected by the Federal Confidentiality of Alcohol and Drug Abuse Patient Records regulations: The Federal rules restrict any use of the information to criminally investigate or prosecute any alcohol or drug abuse patient.[facility]In the event this information is protected by the Federal Confidentiality of Alcohol and Drug Abuse Patient Records regulations: The Federal rules restrict any use of the information to criminally investigate or prosecute any alcohol or drug abuse patient.[facility]In the event this information is protected by the Federal Confidentiality of Alcohol and Drug Abuse Patient Records regulations: The Federal rules restrict any use of the information to criminally investigate or prosecute any alcohol or drug abuse patient.[facility]In the event this information is protected by the Federal Confidentiality of Alcohol and Drug Abuse Patient Records regulations: The Federal rules restrict any use of the information to criminally investigate or prosecute any alcohol or drug abuse patient.[facility]In the event this information is protected by the Federal Confidentiality of Alcohol and Drug Abuse Patient Records regulations: The Federal rules restrict any use of the information to criminally investigate or prosecute any alcohol or drug abuse patient.[facility]In the event this information is protected by the Federal Confidentiality of Alcohol and Drug Abuse Patient Records regulations: The Federal rules restrict any use of the information to criminally investigate or prosecute any alcohol or drug abuse patient.[facility] FOR RECORDS PERTAINING TO PATIENTS WHO [...] BE BASED ON THE PRIMARY CLINICAL RECORDS. [facility]Art[facility]. provides no warranty or guarantee of the accuracy or completeness of information in this document.
--- NOTE | 2024-10-24 11:11 | PM.CN ---
Consult Note: HPI Data of Consult Patient: known to practice within the last 3 years Requesting Physician: Anastasia Donato NP Primary Care Provider: HAIDER HICKMAN Consult Narrative Reason for consult: f/u Narrative: Dong Alcazar a 74 year old male presents for evaluation of right greater toe pain. 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 Pain today 8/10 increasing to 10/10, throbbing. pain increased with activity, improved with tizanidine. pt noticing increased dizziness and drowsiness with current medications, does not find lyrica helpful. engaged in PT at this time for balance. cc:: CC: Anastasia Donato NP Review of Systems ROS Musculoskeletal Reports: extremity pain PFSH PFSH Medical History H/O nephrolithotomy with removal of calculi ?Z98.890 - Other specified postprocedural states (ICD-10) ?Z87.442 - Personal history of urinary calculi (ICD-10) Osteoarthritis ?M19.90 - Unspecified osteoarthritis, unspecified site (ICD-10) Amputation of toe ?S98.139A - Complete traumatic amputation of one unspecified lesser toe, initial encounter (ICD-10) H/O renal calculi ?Z87.442 - Personal history of urinary calculi (ICD-10) Obstructive sleep apnea on CPAP ?G47.33 - Obstructive sleep apnea (adult) (pediatric) (ICD-10) Neck pain ?M54.2 - Cervicalgia (ICD-10) Low back pain ?M54.50 - Low back pain, unspecified (ICD-10) Obesity ?E66.9 - Obesity, unspecified (ICD-10) Diabetes ?E11.9 - Type 2 diabetes mellitus without complications (ICD-10) Enlarged prostate ?N40.0 - Benign prostatic hyperplasia without lower urinary tract symptoms (ICD-10) Hypertension ?I10 - Essential (primary) hypertension (ICD-10) Surgical History H/O heart artery stent ?Z95.5 - Presence of coronary angioplasty implant and graft (ICD-10) Meds Home Medications and Allergies Home Medications ?Medication ?Instructions ?Recorded ?Confirmed ?Type acarbose 50 mg tablet 50 mg PO TID 05/24/23 09/09/24 History aspirin 81 mg tablet,delayed 81 mg PO DAILY 05/24/23 09/09/24 History release (Adult Aspirin Regimen) bupropion HCl 150 mg tablet,12 hr 150 mg PO DAILY 05/24/23 09/09/24 History sustained-release losartan 50 mg tablet 75 mg PO DAILY 05/24/23 09/09/24 History metoprolol tartrate 50 mg tablet 50 mg PO BID 05/24/23 09/09/24 History (Lopressor) nitroglycerin 0.4 mg sublingual 0.4 mg sublingual Q5M 05/24/23 09/09/24 History tablet pioglitazone 30 mg tablet 60 mg PO DAILY 05/24/23 09/09/24 History simvastatin 40 mg tablet 40 mg PO DAILY 05/24/23 09/09/24 History sitagliptin phosphate 50 mg tablet 50 mg PO DAILY 05/24/23 09/09/24 History (Januvia) sodium bicarbonate 650 mg tablet 650 mg PO TID PRN stomach upset 05/24/23 09/09/24 History tizanidine 4 mg tablet 4 mg PO DAILY PRN muscle spasticity 05/24/23 09/09/24 History venlafaxine 37.5 mg 37.5 mg PO BID 05/24/23 09/09/24 History capsule,extended release 24 hr acetaminophen 300 mg-codeine 30 mg 1 tab PO Q6H PRN pain 5 days #20 05/25/24 09/09/24 Rx tablet tabs pregabalin 75 mg capsule mg QID 09/03/24 History pregabalin 100 mg capsule (Lyrica) 100 mg PO QID #120 caps 09/19/24 Rx tizanidine 4 mg capsule See Rx Instructions .Route 09/19/24 Rx .COMPLEX PRN muscle spasticity #180 caps Allergies Allergy/AdvReac Type Severity Reaction Status Date / Time cefuroxime Allergy Unknown Unknown Verified 09/09/24 09:08 diflunisal (From Dolobid) Allergy Unknown Unknown Verified 09/09/24 09:08 dulaglutide (From Trulicity) Allergy Unknown Unknown Verified 09/09/24 09:08 liraglutide (From Victoza) Allergy Unknown Unknown Verified 09/09/24 09:08 rofecoxib (From Vioxx) Allergy Unknown Unknown Verified 09/09/24 09:08 celecoxib (From Celebrex) Allergy Unknown Verified 09/09/24 09:08 metformin Allergy Unknown Verified 09/09/24 09:08 naproxen (From Naprosyn) Allergy Unknown Verified 09/09/24 09:08 NSAIDS (Non-Steroidal Allergy Unknown Verified 09/09/24 09:08 Anti-Inflamma sulindac (From Clinoril) Allergy Unknown Verified 09/09/24 09:08 axetil Allergy Unknown Unknown Uncoded 09/09/24 09:08 Exam Back & Pelvis Lumbar spine/lower back: ROM limited and straight leg raise positive right; no pain with ROM and no lumbar spinal tenderness Other: pain to right L5/S1 dermatome, altered sensation strength 5/5 in BLE Assessment and Plan Assessment and Plan (1) Lumbar radiculopathy: (2) Pain, foot, right, chronic: (3) Chronic myofascial pain: Plan has failed pregabalin 100mg QID, noticing dizziness and it has not been helpful per pt. will decrease pregabalin 100mg BID two weeks then once daily for 1 week and stop decrease tizanidine 4mg QID PRN pain/spasms tablets not capsules continue PT for balance, utilizing cane f/u 3 months
== END 2024-10-24 10:38 | disposition home or self-care (01) ==
PROVIDERS: PCP Family Medicine; Visit Provider Nurse Practitioner
DX: M54.16 Radiculopathy, lumbar region (principal); M79.671 Pain in right foot; M79.18 Myalgia, other site
CPT/HCPCS: G0463

== ENCOUNTER 2024-10-31 09:33 | Outpatient (OUT) | payer MEDICARE, OTHER, SELFPAY ==
[2024-10-31 09:47] LABS: Basophils Percent Auto 0.6 % (0.2-2.0); Eosinophils Absolute Auto 0.2 10^3/uL (0.0-0.7); Eosinophils Percent Auto 3.4 % (0.9-7.0); Hematocrit 41.3 % (42.0-54.0); Hemoglobin 13.2 g/dL (14.0-18.0); Immature Granulocytes Abs Auto 0.04 10^3/uL (0.00-0.03); Immature Granulocytes Pct Auto 0.6 % (0.0-0.5); Lymphocytes Absolute Auto 1.1 10^3/uL (1.2-3.8); Lymphocytes Percent Auto 17.9 % (20.5-60.0); Mean Corpuscular Hemoglobin 28.3 pg (25.9-34.0); Mean Corpuscular Volume 88.4 fL (80.0-94.0); Mean Platelet Volume 10.2 fL (9.5-13.5); Monocytes Absolute Auto 0.6 10^3/uL (0.3-0.8); Monocytes Percent Auto 9.4 % (1.7-12.0); Neutrophils Absolute Auto 4.3 10^3/uL (1.4-6.5); Neutrophils Percent Auto 68.1 % (43.0-75.0); Platelet Count 162 10^3/uL (150-450); Red Blood Count 4.67 10^6/uL (4.70-6.10); Red Cell Distribution Width 14.4 % (11.0-15.0); White Blood Count 6.4 10^3/uL (4.0-11.0)
--- OUTSIDE RECORDS SUMMARY | 2024-10-31 09:55 | XMS_ITS | CCD ---
Author Organization [facility] Care Team Providers Care Trade Sales Assistant Name Role Phone Morgan Kunz [...] Unavailable LATRICIA, DR ARACELI Treadwell Attending Unavailable LATRICIA, DR ARACELI Treadwell Admitting Unavailable DR MORGAN [...] Provider MD Scarlet Johnson Primary Care Provider [phone] MD Eligio Soni Attending Provider MD Scarlet Johnson Primary Care Provider MD Daniel Everett Attending Provider [phone] Eligio Soni Admitting UnavailEligio Patel Attending UnavailScarlet Valerio Primary Care Unavailable Daniel Everett Admitting Unavailable Daniel Everett Attending Unavailable Scarlet Johnson Primary Care Unavailable Terry Kelley Attending Unavailable Scarlet Johnson Primary Care Unavailable Terry Kelley Admitting Unavailable Bubba SCHUSTER, Andrius Unavailable [phone] Haider Hickman Attending Unavailable Haider Hickman Admitting Unavailable Haider Hickman MD Primary Care Provider [phone] Haider Hickman Attending Unavailable Haider Hickman Attending [...] Attending Unavailable Araceli BERMUDEZ P Attending Unavailable Haider Hickman Attending Unavailable Haider Hickman Attending Unavailable Haider Hickman MD Primary Care Provider MORGAN TRINIDAD Attending Unavailable HAIDER HICKMAN Primary Care Unavailable MIJONAHTOPHILIPP, DESIMIR Referring Unavailable HAIDER HICKMAN Primary Care Unavailable MEKHAIHERBERTH Hernandez A Referring Unavailable MIJATOVIC, DESIMIR Attending Unavailable LAINEY ARAUJOY A Attending Unavailable FRANCOISE SINGLETARY Attending Unavailable HAIDER HICKMAN Primary Care Unavailable MIJATOVIC, DESIMIR Referring Unavailable MIJATOVIC, DESIMIR Attending Unavailable HERBERTH ARAUJO A Attending Unavailable HERBERTH ARAUJO A Admitting Unavailable MORGAN TRINIDAD Referring Unavailable HAIDER HICKMAN Primary Care Unavailable BRITNEY HYDE Attending Unavailable ESSENCE WASHBURN Attending Unavailable ELAINE FISHER Attending Unavailable MARY APARICIO Attending Unavailable Bubba SCHUSTER, Andrius Louis Attending Unavailable Giedraitis , Andrius Missy Attending Unavailable Gianshuraitis , Andrius Vytsandy Attending Unavailable Giedraitis , Andrius Vytsandy Attending Unavailable Sharleneedraitis , Andrius Louis Attending Unavailable Haider Hickman Attending [...] SELF Referring Unavailable Araceli BERMUDEZ Attending Unavailable BASSAM AGUILAR Attending Unavailable CHELLE BRANDON Attending Unavailable CHELLE BRANDON Referring Unavailable PATRICIA MCPHERSON Attending Unavailable BASSAM AGUILAR Attending Unavailable BASSAM AGUILAR Attending Unavailable CHELLE BRANDON Attending Unavailable CHELLE BRANDON Attending Unavailable BASSAM AGUILAR Attending Unavailable SHYAM CAM Attending Unavailable SHYAM CAM Referring Unavailable KAJAL CAM Attending Unavailable CHELLE BRANDON Attending Unavailable SHYAM CAM Attending Unavailable ARLEN SANCHEZ Attending Unavailable SHYAM CAM Attending Unavailable SHYAM CAM Attending Unavailable KHAI HEARD Attending Unavailable ARLEN SANCHEZ Referring Unavailable BASSAM AGUILAR Attending Unavailable MATTHEW MAY Attending Unavailable HAIDER HICKMAN Referring Unavailable BASSAM AGUILAR Attending Unavailable MD Haider Hickman Attending Unavailable MD Haider Hickman Admitting Unavailable MD Haider Hickman Attending Unavailable MD Haider Hickman Attending Unavailable Haider Hickman Attending Unavailable Haider Hickman Admitting Unavailable Allergies Allergy Classification Reported Allergen(s) Allergy Type Date of Onset Reaction(s) Facility (20 sources) Cefuroxime; Translations: [cefuroxime] Drug Allergy 06-09-20 Unknown [facility] (20 sources) celecoxib; Translations: [CELECOXIB] Drug Allergy 06-09-20 Unknown [facility] (20 sources) Diflunisal; Translations: [DIFLUNISAL] Drug Allergy 06-09-20 Unknown [facility] (20 sources) dulaglutide Drug Allergy 09-11-20 23 Unknown, g/i [facility] (20 sources) Ibuprofen Drug Allergy Unknown [facility] Other (20 sources) liraglutide; Translations: [LIRAGLUTIDE] Drug Allergy 11-25-19 23 stomach upset [facility] (20 sources) metFORMIN; Translations: [metFORMIN] Drug Allergy 06-09-20 stomach upset [facility] (20 sources) Naproxen; Translations: [NAPROXEN] Drug Allergy 06-09-20 Unknown [facility] (20 sources) Sulindac; Translations: [Clinoril] Drug Allergy 07-10-20 15 Unknown [facility] Repository (1 source) Cefuroxime Drug Allergy 07-13-20 16 [facility] (4 sources) celecoxib; Translations: [CeleBREX] Drug Allergy 07-10-20 15 [facility] (4 sources) liraglutide; Translations: [Victoza] Drug Allergy [facility] (1 source) metFORMIN Drug Allergy 06-15-20 17 [facility] (4 sources) Naproxen; Translations: [Naprosyn] Drug Allergy 07-10-20 15 [facility] (3 sources) NSAIDs; Translations: [NSAIDS (NON-STEROIDAL ANTI-INFLAMMATORY DRUG)] Drug allergy (disorder) 07-10-20 15 [facility] (4 sources) Povidone-Iodine; Translations: [Dolobid] Drug Allergy 07-10-20 15 [facility] (20 sources) Cephalosporins (Antibiotic); Translations: [Cephalosporins] Propensity to adverse reactions 05-29-20 18 Unknown Reaction [facility] (20 sources) Ibuprofen; Translations: [ibuprofen] Drug Allergy 09-11-20 Unknown [facility] (20 sources) Sulindac; Translations: [sulindac] Drug Allergy 06-09-20 21 Unknown [facility] (1 source) Cefuroxime Drug Allergy 09-11-20 [facility] (1 source) celecoxib Drug Allergy 09-11-20 [facility]ository (1 source) Diflunisal Drug Allergy 09-11-20 [facility] (1 source) dulaglutide Drug Allergy 09-11-20 [facility] (1 source) liraglutide Drug Allergy 09-11-20 [facility] (1 source) metFORMIN Drug Allergy 09-11-20 [facility] (1 source) Naproxen Drug Allergy 09-11-20 [facility] Repository (12 sources) Non-steroidal anti-inflammatory agent Drug Intolerance 02-05-20 24 GI Upset [facility] (3 sources) Cefuroxime; Translations: [Cefuroxime Axetil] Drug Allergy [facility] Repository (3 sources) dulaglutide; Translations: [Trulicity] Drug Allergy [facility] (3 sources) Niacin; Translations: [niacin] Drug Allergy [facility] Repository (20 sources) NSAIDs; Translations: [NSAIDs] Propensity to adverse reactions (disorder) 07-23-20 24 Other [facility] Repository (3 sources) rofecoxib; Translations: [Vioxx] Drug Allergy [facility] Repository (20 sources) celecoxib Drug Allergy 05-18-20 Unknown [facility] (20 sources) Diflunisal Drug Allergy 06-09-20 Unknown [facility] (20 sources) dulaglutide Drug Allergy 05-18-20 Unknown [facility] (20 sources) liraglutide Drug Allergy 05-18-20 Unknown [facility] (20 sources) metFORMIN Drug Allergy 05-18-20 Unknown [facility] (20 sources) rofecoxib; Translations: [ROFECOXIB] Drug Allergy 06-09-20 Unknown [facility] Medications Current Medications Medication [...] tablet Orally Once a day Active [facility] Active memantine hydrochloride 10 mg oral tablet (20 sources) W-ackwfk-D-aspartate Receptor Antagonist Start: 05-31-2024 End: 07-22-2024 take [...] sublingual tablet (20 sources) Nitrate Vasodilator Start: 022 nitroglycerin (Nitrostat) 0.[address] 1 TABLET UNDER TONGUE EVERY 5 MINS, UP TO 3 DOSES NEEDED FOR CHEST PAIN 09/20/2023 Active [place] 6-Ujg-Spj-Fish Oil (Fish Oil) 1,000 mg (120 mg-180 mg) Capsule (2 sources) Start: 018 [place] 2-Tla-Xrq-Fish Oil (Fish Oil) 1,000 mg (120 mg-180 [...] Orally once a day Active FreeStyle Baylee Wellborn - (7 sources) FreeStyle Baylee Wellborn - use with baylee sensor SQ daily [...] Coronary arteriosclerosis; Translations: [Atherosclerotic heart disease of [place] coronary artery without angina pectoris] Onset: 9 [...] 07-23-2024 Chronic Other aftercare (1 source) 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; Translations: [HALFWAY CURRENT USE OF ASPIRIN] Onset: 3 Episodic Other aftercare (1 source) Other halfway (current) drug therapy; Translations: [OTH HALFWAY CURRENT DRUG THERAPY] Onset: 3 Episodic Other aftercare (6 sources) Long-term current use of insulin; Translations: [MCC (current) use of insulin] Episodic Other aftercare (1 source) MCC (current) use of insulin Episodic Other connective [...] Test Name Value Interpretation Reference Range Facility U [facility] 10-24-2024 Albumin DL <= 20 mg/L (U) [Mass/Vol] 4.0 mg/dL High 0.0-1.9 [facility] Comment on above: Performed By: #### 1 [id number] #### [facility] [address] [place] [address] Ambulatory Visit Summaryon 0 10-15-2024 Ambulatory Visit [...] Hickman MD This Is Your Medications List [facility] Prescription (Eric Prather, 5 years.) acarbose (acarbose [...] 30 mg Tab) potassium chloride (Potassium Chloride (Czn-Tysq-Ywu M20) 20 mEq oral tablet, extended release) [...] 2024 10:40 AM EST With: Where: [address] [id number]- 2024 10:30 AM EST With: Kristofer SCHUSTER, Haider Bee Where: [address] [address]- 2024 8:00 AM EDT With: Where: [facility] [address] [address]- Monday 9:15 AM EDT With: Araceli BERMUDEZ MD Where: [facility] [address], [address] [place] [address]- Medications What How Much When Why Instructions [...] 1.5 tab(s) Oral Daily Unchanged Misc Prescription (Anaicajosé miguel Prather, 5 years.) See instructions Stage 3a [...] 1 Tablets (more content not included)... Normal [facility] Family Medicine Office/Clini c Noteon 10-15-2024 Family [...] Diff Comprehe (more content not included)... Normal [facility] Comment on above: Result Comment: Elec tronically Signed By: Kristofer SCHUSTER, Haider Sandhu.br\Date and Time Signed: 10/15/24 13:10 EST CMPon 09-10-2024 Albumin [Mass/Vol] 4.3 g/dL Normal 3.3-5.0 [facility] Comment on above: Performed By: #### 2 [id number] #### [facility] [address] [place] [address] Albumin/Globulin (S) [Mass conc ratio] 1.7 Normal 1.1-2.2 [facility] Comment on above: Performed By: #### 2 [id number] #### [facility] [address] [place] [address] ALP [Catalytic activity/Vol] 73 Int._Unit/L Normal 21-98 [facility] Comment on above: Performed By: #### 2 [id number] #### [facility] [address] [place] [address] ALT No additional P-5'-P [Catalytic activity/Vol] 23 Int._Unit/L Normal 6-46 [facility] Comment on above: Performed By: #### 2 [id number] #### [facility] [address] [place] [address] Anion gap [Moles/Vol] 12 mmol/L Normal 6-16 [facility] Comment on above: Performed By: #### 2 [id number] #### [facility] [address] [place] [address] AST [Catalytic activity/Vol] 25 Int._Unit/L Normal 5-43 [facility] Comment on above: Performed By: #### 2 [id number] #### [facility] [address] [place] [address] Bilirubin [Mass/Vol] 0.5 mg/dL Normal 0.0-1.1 [facility] Comment on above: Performed By: #### 2 [id number] #### [facility] [address] [place] [address] Calcium [Mass/Vol] 9.2 mg/dL Normal 8.9-11.1 [facility] Comment on above: Performed By: #### 2 [id number] #### [facility] [address] [place] [address] Chloride [Moles/Vol] 108 mmol/L Normal 101-111 [facility] Comment on above: Performed By: #### 2 327908 #### [facility] [address] [place] [address] CO2 [Moles/Vol] 26 mmol/L Normal 21-31 [facility] Comment on above: Performed By: #### 2 [id number] #### [facility] [address] [place] [address] Creatinine [Mass/Vol] 1.3 mg/dL Normal 0.5-1.3 [facility] Comment on above: Performed By: #### 2 [id number] #### [facility] [address] [place] [address] Globulin (S) [Mass/Vol] 2.5 g/dL Normal 1.4-4.0 [facility] Comment on above: Performed By: #### 2 547397 #### [facility] [address] [place] [address] Glucose [Mass/Vol] 137 mg/dL Normal 55-199 [facility] Comment on above: Performed By: #### 2 [id number] #### [facility] [address] [place] [address] Potassium [Moles/Vol] 4.7 mmol/L Normal 3.5-5.3 [facility] Comment on above: Performed By: #### 2 548339 #### [facility] [address] [place] [address] Protein [Mass/Vol] 6.8 g/dL Normal 6.0-7.8 [facility] Comment on above: Performed By: #### 2 [id number] #### [facility] [address] [place] [address] Sodium [Moles/Vol] 141 mmol/L Normal 135-145 [facility] Comment on above: Performed By: #### 2 314602 #### [facility] [address] [place] [address] Urea nitrogen [Mass/Vol] 28 mg/dL High 5-21 [facility] Comment on above: Performed By: #### 2 010374 #### [facility] [address] [place] [address] Urea nitrogen/Creatinine [Mass ratio] 22 No Units High 10-20 [facility] Comment on above: Performed By: #### 2 089702 #### [facility] [address] [place] [address] Magnesiumon 09-10-2024 Magnesium [Mass/Vol] 1.8 mg/dL Normal 1.3-2.4 [facility] Comment on above: Performed By: #### 2 670653 #### [facility] [address] [place] [address] eGFRon 09-10-2024 eGFR 57 mL/min/1.73 m2 Low >=59 [facility] Comment on above: Performed By: #### 1 [id number] #### [facility] [address] [place] [address] Family Medicine Office/Clini c Noteon 09-09-2024 Family [...] involvement and proprioceptive complications. Consider assessment at [facility] for balance and gait evaluation. Discuss with [...] manage morbid obesity. Possible consultation with a sorter upholstery parts for weight management strategies. Ordered: Body Mass [...] is fro (more content not included)... Normal [facility] Comment on above: Result Comment: Elec tronically Signed By: Kristofer SCHUSTER, Haider Sandhu.br\Date and Time Signed: 09/09/24 15:07 EST 36on 09-03-2024 36 Confirmed with Kat, the BP readings at end of report were from the new BP monitor and his BP in office compared to his new cuff was 130s/70s. Based off of the other readings, recommend switching his metoprolol to carvedilol, start at 6.25mg BID. Follow-up 2-3 months. [facility] Ambulatory Visit Summaryon 1 10-15-2023 Ambulatory Visit [...] Hickman MD This Is Your Medications List [facility] Prescription (Eric Prather, 5 years.) acarbose (acarbose [...] 30 mg Tab) potassium chloride (Potassium Chloride (Ppb-Neow-Efk M20) 20 mEq oral tablet, extended release) [...] With: Kristofer SCHUSTER, Haider Bee Where: [address] [id number]- 2024 8:00 AM EDT With: Where: [address] [address]- Monday 9:15 AM EDT With: LATRICIA SCHUSTER, Araceli Treadwell Where: [facility] [address], [address] [place] [address]- Medications What How Much When Why Instructions [...] Every day Unchanged potassium chloride (Potassium Chloride (Xer-Hfrr-Cuh M20) 20 mEq oral tablet, extended release) 1 Tablets By Mouth Every day Unchanged pregabalin (Lyrica 75 mg Cap) 1 Capsules By Mouth 2 times a day Unchanged simvastatin (simvastatin 40 mg Tab) 1 Tablets (more content not included)... Normal [facility] Family Medicine Office/Clini c Noteon 08-15-2024 Family [...] BID, # 60 cap(s), Refills(s) 1, Pharmacy: [facility]/pharmacy #[id number], 169, cm, 08/15/24 10:34:00 EST, Height/Length [...] interactions b (more content not included)... Normal [facility] Comment on above: Result Comment: Elec tronically Signed By: Kristofer SCHUSTER, Haider Bee\.br\Date and Time Signed: 08/15/24 11:26 EST Ksenia 08-14-2024 CNOV Office Visit (NPRC21 ) DONG WHITMORE ([id number]) 1950 M Date Time Provider Department 08/14/24 10:00 AM CHIQUI ROBLES NPRC21 During your visit today, we recorded the following information about you: Pulse Respiration Blood pressure Weight 59/minute 16/minute 137/69 117.2 kg Claudia Chilel MD 08/14/2024 10:51 AM Signed [facility] Neurological [place] August 14, 2024 This is a face [...] Chiqui Robles MD 08/26/2024 4:34 PM Addendum [facility] STAFF PHYSICIAN NOTE OF PERSONAL INVOLVEMENT [...] - psychotherapy was utilized during the visit. Dirn-mj-uikx time: 84126 (16-37 mins) actual time spend in psychotherapy 18 minutes Type of therapeutic intervention:Supportiv e Target symptoms: Pain coping skills and Acceptance and adapting Progress/Session notes:processing Interactive Complexity: None STAFF PHYSICIAN:: Chiqui Robles MD DATE of SERVICE: 08/14/2024 Referring Provider: CHIQUI ROBLES [[id number]] Allergies As of Date: 08/14/2024 Noted Allergy [...] [E66.813, E66.01, Z68.41] Order(s):PROVIDER ORDERED FOLLOW UP [[id number]] Order #: [id number]: 1 Prescriptions as of 08/26/2024 - pregabalin (LYRICA) 75 mg capsule Take 75 mg by mouth two times a day. - memantine (NAMENDA) (more content not included)... Normal [facility] Office Visiton 08-07-2024 Follow-up visit [id number] Dong Whitmore 1950 M Date Provider Department Center 08/07/2024 [id number]-[facility]HHEUESS[facility] Family History Problem Relation Age of Onset Coronary artery disease Other Diabetes Other Family Status - Relation Status Age at Other Level of Service:15921 NE OFFICE/OUTPATIENT ESTABLISHED MOD MDM 30 MIN Reason for Visit and Comments: Hypertension [846784] - He brought BP log from home with him today. Readings are usually in the 130-140's systolic. Hyperlipidemia [182] Coronary Artery Disease [187] - Denies chest pain and SOB. Normal [facility] Ambulatory Visit Summaryon 1 Ambulatory Visit [...] 30 mg Tab) potassium chloride (Potassium Chloride (Gqs-Qtex-Rfi M20) 20 mEq oral tablet, extended release) [...] EST With: Haider Hickman MD Where: [address] [address]- Monday 3:30 PM EST With: Haider Hickman MD Where: [facility] [address] [address]- 2024 8:00 AM EDT With: Where: [address] [address]- Monday 9:15 AM EDT With: LATRICIA SCHUSTER, Araceli Treadwell Where: [facility] [place] [address], [address] [place] [address]- Someone Will Contact You Regarding These Appointments [facility] [place] Referral, Neurology, 08/01/24 12:15:00 EDT, Suicidal ideation Unspecified mononeuropathy of right lower limb BMI 40.0-44.9, adult Morbid obesity with body mass index (BMI) of 40.0 or higher Nonsmoker Medications What How Much When Why Instructions New pregabalin (Lyrica 75 mg Cap) 1 Capsules By Mouth 2 times a day Pickup at [facility]/pharmacy #[id number] Changed tizanidine (tiZANidine 4 mg Tab) 4 Milligram By Mouth Every 8 hours Pickup at [facility]/pharmacy #[id number] Changed venlafaxine (venlafaxine 75 mg Tab) 1 Tablets By Mouth 2 times a day Pickup at [facility]/pharmacy #[id number] Unchanged acarbose (acarbose 25 mg oral [...] 1 Table (more content not included)... Normal [facility] Family Medicine Office/Clini c Noteon 08-01-2024 Family [...] appt comiing up with a dr at [facility] says he's a psychiatrist he's in pain [...] E&M of Est. Patient High 40-54 Min 17304 [facility] [place] Ambulatory Referral Prolonged OV 15 min 85379 2. Unspecified mononeuropathy of right lower limb [...] E&M of Est. Patient High 40-54 Min 53214 [facility] [place] Ambulatory Referral Prolonged OV 15 min 05995 3. BMI 40.0-44.9, adult (Z68.41: Body mass index [BMI] 40.0-44.9, adult) Discussed the importance of lifestyle changes, including dietary modifications and physical activity, to manage BMI. Addressed the potential contributions of morbid obesity to peripheral neuropathic symptoms. Ordered: Body Mass Index (BMI) documented 3008F Current tobacco non-user 1036F Depression Screening Positive 3354F E&M of Est. Patient High 40-54 Min 05933 Fall Risk Screen 2 or more w/injury 1100F [facility] External (more content not included)... Normal [facility] Comment on above: Result Comment: Elec tronically [...] other machine again): L sitting 175/112 Normal [facility] Telephoneon 07-23-2024 Telephone [id number] Dong Whitmore 1950 M Date Provider Department Center 07/23/2024 8-BRITNEY MURPHY [facility] Sarkar Family History Problem Relation Age of Onset Coronary artery disease Other Diabetes Other Family Status - Relation Status Age at Other Normal [facility] Office Visiton 07-19-2024 Follow-up visit [id number] Dong Whitmore 1950 M Date Provider Department Center 07/19/2024 3848-ELAINE FISHER [facility] Sarkar Family History Problem Relation Age of Onset Coronary artery disease Other Diabetes Other Family Status - Relation Status Age at Other Level of Service:73313 NE OFFICE/OUTPATIENT ESTABLISHED MOD MDM 30 MIN Normal [facility] Ambulatory Visit Summaryon 1 Ambulatory Visit [...] Araceli BERMUDEZ MD Primary Care Physician - Kristofer SCHUSTER, Haider Bee This Is Your Medications List sodium bicarbonate (sodium bicarbonate 650 mg Tab) Contact prescribing physician if questions or concerns Misc Prescription (Handicap Placlizzie, 5 years.) acarbose (acarbose 25 mg oral [...] 30 mg Tab) potassium chloride (Potassium Chloride (Zwv-Wpof-Gra M20) 20 mEq oral tablet, extended release) [...] EST With: Haider Hickman MD Where: [address] [address]- Monday 10:30 AM EST With: Araceli BERMUDEZ MD Where: [facility] [address], [address] [place] [address]- 2024 8:00 AM EDT With: Where: [address] [address]- Monday 9:15 AM EDT With: Araceli BERMUDEZ MD Where: [facility] [address], [address] [place] [address]- You Need to Schedule the Following Appointments Follow Up with Araceli BERMUDEZ MD, URL When: Where: [address] [address]- Medications What How Much When Why Instructions Unchanged sodium bicarbonate (sodium bicarbonate 650 mg Tab) 2 Tablets By Mouth 3 times a day Duration: 90 Days Pickup at [facility]/pharmacy #[id number] Unchanged acarbose (acarbose 25 mg oral tablet) [...] questions or concerns Unchanged Misc Prescription (Handicap Placard, 5 years.) Se (more content not included)... Normal [facility] Reminderson 07-17-2024 Reminders Reminders From: Roya Álvarez To: PREM Bermudez; Sent: 07/17/2024 10:05:54 EDT Show up: 05/17/2025 10:05:00 EDT Subject: Renal US Due Date/Time: 05/17/2025 10:05:00 EDT Reminder Message Renal US to be done prior to 1 year appointment. [facility]. Order created today. Normal [facility] Urology Office/Clinic Noteon 07-17-2024 Urology Office/Clinic Note Urology Office/Clinic Note Chief Complaint follow up HPI Staff 73 yo male here for f/up with renal US. Previous dx: kidney stone, complex renal cyst, BPH w/ LUTS, impotence. Taking Sodium Bicarb 650mg tid. Renal US 10/31/23 [facility]. KUB 11/10/23 [facility] - no stones id'd. S/p cysto, R RPG, R ESWL 01/04/24. Renal US 01/24/24 [facility] [place] neg limited renal ultrasound. Renal US [...] with voice recognition artificial intelligence software, specifically [employer], [employer] and or [employer]. Substitutions may have occurred due to the [...] RPG, R ESWL 01/04/24. Renal US 01/24/24 [facility] limited renal ultrasound. Renal US 07/04/24 [facility] [...] With When Contact Information LATRICIA SCHUSTER, Araceli Treadwell, URL [address] [place] [phone]- Additional Instructions: 1 year w/ renal US Patient Education Dietary Guidelines to Help Prevent Kidney Stones I, Roya Álvarez, personally scribed for Dr. Bermudez on 07/17/2024 10:05:06 (more content not included)... Normal [facility] Comment on above: Result Comment: Elec tronically Signed By: Araceli BERMUDEZ MD\.br\Date and Time Signed: 07/17/24 10:09 EDT\.br\Electronically Co-Signed By: Roya Álvarez.br\Date and Time Co-Signed: 07/17/24 10:05 EDT Office Visiton 06-26-2024 Follow-up visit [id number] Dong Whitmore 1950 M Date Provider Department Center 06/26/2024 [facility] Family History Problem Relation Age of Onset Coronary artery disease Other Diabetes Other Family Status - Relation Status Age at Other Level of Service:[address] NE OFFICE/OUTPATIENT ESTABLISHED MOD MDM 30 MIN Reason for Visit and Comments: Coronary Artery Disease [187] Hypertension [494501] Normal [facility] XR Foot - right 3 Viewson Imaging Result: [facility] Radiology Study observation (narrative) [facility] No Panel Informationon 06-12 Chelle Brandon [...] and draped in the usual sterile fashion. [facility] Ambulatory Visit Summaryon 0 05-31-2024 Ambulatory Visit [...] Hickman MD This Is Your Medications List [facility] Prescription (Eric Prather, 5 years.) acarbose (acarbose [...] 30 mg Tab) potassium chloride (Potassium Chloride (Sit-Lnty-Hlv M20) 20 mEq oral tablet, extended release) [...] Araceli BERMUDEZ MD Where: [facility] [address], [address] [place] [address]- Monday 3:30 PM EST With: Haider Hickman MD Where: [address] [address]- Monday 10:30 AM EST With: Araceli BERMUDEZ MD Where: [facility] [address], [address] [place] [address]- 2024 8:00 AM EDT With: Where: [address] [address]- Medications What How Much When Why Instructions [...] Unchanged nitrog (more content not included)... Normal 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 Non-smoker (Z78.9: Other specified health status) Encouraged to continue as a non-smoker Ordered: clindamycin, 300 mg = 1 cap(s), Oral, BID, X 10 day(s), # 20 cap(s), Refills(s) 0, Pharmacy: [facility]/pharmacy #[id number], 169, cm, 05/22/24 14:52:00 EDT, [...] Oral, BID (more content not included)... Normal [facility] Comment on above: Result Comment: Elec tronically Signed By: DAVID ACOSTA CNP\.cyrus\Date and Time Signed: 05/23/24 12:59 EDT Ambulatory [...] Hickman MD This Is Your Medications List [facility] Prescription (Eric Prather, 5 years.) acarbose (acarbose [...] 30 mg Tab) potassium chloride (Potassium Chloride (Yzd-Xpyk-Xdr M20) 20 mEq oral tablet, extended release) [...] AM EDT With: Kajal Cam DPM Where: [facility] [place] Monday 9:15 AM EDT With: Araceli BERMUDEZ MD Where: [facility] [address], [address] [place] [address]- Monday 3:30 PM EST With: Haider Hickman MD Where: [address] [address]- Monday 10:30 AM EST With: Araceli BERMUDEZ MD Where: [facility] [address], [address] [place] [address]- 2024 8:00 AM EDT With: Where: [address] [address]- Medications What How Much When Why Instructions New clindamycin (clindamycin 300 mg oral cap) 1 Capsules By Mouth 2 times a day Cellulitis of leg BMI 40.0-44.9, adult Non-smoker Class 3 severe obesity due to excess calories with body mass index (BMI) of 40.0 to 44.9 in adult Duration: 10 Days Pickup at [facility]/pharmacy #[id number] Unchanged acarbose (acarbose 25 mg oral tablet) [...] Peripheral edema Handicap Placlizzie, 5 years. Unchanged nitroglyce (more content not included)... Normal [facility] Family Medicine Office/Clini c Noteon 05-14-2024 Family [...] Precautions for MERS/COVID-19 : N/A Debra Bermudez - 05/13/2024 9:39 EDT Medicare/Medicaid Summary Systolic Blood [...] Rating Pain Score : 8 Debra Bermudez - 05/13/2024 9:39 EDT Hearing and Vision Screening [...] : Living will, Medical durable power of civil litigation attorney Organ Donation Consent : Yes Debra [...] Last Reviewed Dt/Tm: 05/13/2024 09:44:11 EDT Location: [facility] ; Anesthesia Minutes: 0 ; Procedure [...] 05/13/2024 09:44:11 (more content not included)... Normal [facility] Comment on above: Result Comment: Elec tronically Signed By: Haider Hickman MD\.br\Date and Time Signed: 05/14/24 10:23 EDT\.br\Electronically Co-Signed By: Debra Bermudez\.br\Date and Time Co-Signed: 05/13/24 13:04 EDT CNOVha 04-24-2024 CNOV Office Visit (NPRC21 ) DONG WHITMORE ([id number]) 1950 M Date Time Provider Department 04/24/24 9:00 AM CHIQUI ROBLES NPRC21 During your visit today, we recorded the following information about you: Pulse Blood pressure Weight Height 61/minute 122/89 122.5 kg 1.702 m Parish Rios MD 04/24/2024 11:26 AM Signed [facility] [place] April 24, 2024 This is a face [...] Camacho Desimir, MD 04/24/2024 11:26 AM Signed [facility] STAFF PHYSICIAN NOTE OF PERSONAL INVOLVEMENT IN CARE IMPRESSION: Complex regional pain syndrome Adjustment Disorder Tried multiple injections, procedures, surgeries. No benefit Tried SCS and recently DRG without success. Discussed ketamine PLAN: Ketamine infusions Consider scrambler therapy Psych psychology Memantine 5mg Psychotherapy Add-on Progress Note Due to medical condition and comorbid psychological and behavioral concerns - psychotherapy was utilized during the visit. Tskn-lw-tofr time: 93825 (16-37 mins) actual time spend in psychotherapy [...] which included preparing to see the patient, ofuw-iz-uvfo patient care, completing clinical documentation, performing a medically appropriate examination, and counseling and educating the patient/family/caregiv er. As noted, the patient's clinical situation is complex and serious with significant comorbidity of pain and functional limitations. This requires higher levels of time, intensity, and expense with longitudinal care and support. STAFF PHYSICIAN:: Chiqui Robles MD DATE of SERVICE: 04/24/2024 Referring Provider: HERBERTH ARAUJO [[id number]] Allergies As of Date: 04/24/2024 Noted Allergy [...] TO [facility] ([facility]IC PAIN) [6605338] Order #: [id number]: 1 PAIN RECOVERY FOLLOW UP ORDER [[id number]] Order #: [id number]: 1 FUTURE PROVIDER ORDERED FOLLOW UP [2260253] Order #: [id number]: 1 FUTURE memantine (NAMENDA) 5 mg tabletTake 1 tablet by mouth once daily.Disp: 30 tabletRfl: 3 CONSULT TO KETAMINE FOR CHRONIC PAIN [9044] Order #: [id number]: 1 FUTURE Prescriptions as of 04/24/2024 - memantine (NAMENDA) 5 mg tablet Take 1 tablet by mouth once daily. - aspirin, enteric coated (ASPIRIN, ENTERIC COATED) 81 mg EC tablet Take 81 mg by mouth once daily. - fi (more content not included)... Normal [facility] BRIEF OP NOTon 04-03-2024 BRIEF OP NOT HNO ID: [id number] Author: CAPRICE DOWNING MD Service: Pain Management Author Type: Fellow Type: Brief Op Note Filed: 04/03/2024 10:35 Note Text: BRIEF OPERATIVE / PROCEDURE NOTE LOG ID: [id number] SURGERY/PROCEDURE DATE: 04/03/2024 PROCEDURE START TIME: 958 PROCEDURE END TIME: 1030 PRE-OP/PRE-PROCEDURE DIAGNOSIS: Chronic toe pain, right foot [M79.674, G89.29] Complex regional pain syndrome type II of right lower limb [G57.71] POST-OP/POST-PROCEDURE DIAGNOSIS: Chronic toe pain, right foot [M79.674, G89.29] Complex regional pain syndrome type II of right lower limb [G57.71] SURGEON(S)/PROCEDURALI ST(S) AND SHIPPING AND RECEIVING MATERIAL HANDLER(S): Surgeon(s) and Role: * Herberth Araujo MD, PhD - Primary * Caprice Downing MD No Additional Staff SURGERY/PROCEDURE(S): Attempted Right L4 and L5 Dorsal Root Ganglion Stimulator ANESTHESIA: Anxiolysis and Local anesthetic FINDINGS: None ESTIMATED BLOOD LOSS: Minimal SPECIMENS: None COMPLICATIONS: None Caprice Downing MD Pain Medicine Fellow April 03, 2024 [facility] NURSING PROGon 04-03-2024 NURSING PROG HNO ID: [id number] Author: CAYETANO ROSALES RN Service: Nursing Author Type: Registered Nurse Type: Nursing Progress Note Filed: 04/08/2024 15:32 Note Text: Summary: Follow up phone call Follow up phone call made regarding outcome of procedure. No answer voicemail left - The patient was instructed to call [phone] with the percentage of pain relief and what activities have improved. [employer] message also sent. [facility] NURSING PROG HNO ID: [id number] Author: SURINDER LARES, DENISE Service: Nursing Author Type: Registered Nurse Type: Nursing Progress Note Filed: 04/09/2024 10:09 Note Text: Summary: Post Procedure Call Patient left voice mail. Team was unable to finish procedure due to patient was unable to stay still. No pain relief noted. Surinder Lares RN April 09, 2024 [facility] NURSING PROG HNO ID: [id number] Author: EMILEE HYDE RN Service: ? Author Type: Registered Nurse Type: Nursing Progress Note Filed: 04/03/2024 10:45 Note Text: Dr. Marian Downing (fellow) discusses reason why procedure was aborted today. Other options for pain management was discussed with patient and . Normal [facility] OPERATIVE NOon 04-03-2024 OPERATIVE NO HNO ID: [id number] Author: HERBERTH ARAUJO MD, PhD Service: Pain Management Author Type: Physician Type: Operative Report Filed: 04/03/2024 20:14 Note Text: OPERATIVE/PROCEDURE REPORT : LOG ID: [id number] SURGERY/PROCEDURE DATE: 04/03/2024 INCISION/PROCEDURE START TIME: 9:59 [...] Dorsal Root Ganglion Stimulator SURGEON(S)/PROCEDURALI ST(S) AND SHIPPING AND RECEIVING MATERIAL HANDLER(S): Surgeon(s) and Role: * Herberth Araujo MD, [...] ELECTRONIC SIGNATURE, Herberth Araujo MD, PhD Normal [facility] HISTORY PHYSICALon HISTORY PHYSICAL HNO ID: [id number] Author: HERBERTH ARAUJO MD, PhD Service: Pain Management Author Type: Physician Type: H&P Filed: 04/03/2024 09:33 Note Text: PROCEDURE EVALUATION AND HISTORY AND PHYSICAL EXAM SUBJECTIVE: Dong Whitmore is a 73 year old man who presents to [facility] for Right L4 and L5 Dorsal Root Ganglion Stimulator Trial. This is his first (1) procedure. Focused Review of Systems: PAIN: Denies any contraindications to the procedure including coagulopathy, infection, recent cerebral/myocardial infarct, and hemodynamic instability. 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 Current Outpatient Medications [...] 03, 2024 Herberth Araujo MD, PhD Normal [facility] NURSING PROGon 04-01-2024 NURSING PROG HNO ID: [id number] Author: GILBERTO BAUTISTA RN Service: ? Author Type: Registered Nurse Type: Nursing Progress Note Filed: 04/01/2024 10:58 Note Text: Walker SHEILA Pre- Procedure Telephone Instructions Patient called to remind them of their appointment on 04/03/[address] Araujo Patient instructed to arrive at 0915 Message left: Yes Instructions given: 1. Do not eat or drink for 8 hours, however, you may have clear liquids up to 2 hours before the appointment. 2. A power truck driver must be present who can drive you home. If you are coming by medical transport, you must have a responsible person other than the waste transportation technician with you. 3. Do you take [...] or cannot make the appointment by calling [phone] (Option 2). Normal [facility] Ambulatory Visit Summaryon 0 03-26-2024 Ambulatory [...] Hickman MD. This Is Your Medications List [facility] Prescription (Handicap Yamilka, 5 years.) furosemide (Lasix 40 mg Tab) potassium chloride (Potassium Chloride (Phi-Fmwg-Xyt M20) 20 mEq oral tablet, extended release) [...] 9:30 AM EDT With: Where: [facility] Invalid Interpretation Code [address], [address] [place] [address]- \.br \ Monday 2:15 PM EST \.br\ With: Haider Hickman MD\.br\ Where: [facility] Medicine Office/Clini c Noteon 03-26-2024 Family Medicine [...] years., Suppl (more content not included)... Normal [facility] Comment on above: Result Comment: Elec trohaially Signed By: Kristofer SCHUSTER, Haider Bee\.br\Date and [...] numbers. This can be done either in [place]vian ([place].S.) or metric measurements. Note that charts and online BMI calculators are available to help you find your BMI quickly and easily without having to do these calculations yourself. To calculate your BMI in [place]vian ([place].S.) measurements: 1. Measure your weight in [...] for Disease Control and Prevention: www.cdc.gov ? [place] Heart Association: www.heart.org ? National Heart, Lung, and Blood [place]: www.nhlbi.nih.gov Summary ? Body mass index (BMI) is a number that is calculated from a person's weight and height. ? BMI may help estimate how much of a person's weight is composed of fat. BMI can help identify those who may be at higher risk for certain medical problems. ? BMI can be measured using Latvian measurements or metric measurements. ? BMI charts are used to identify whether you are underweight, normal weight, overweight, or obese. This information is not intended to replace advice given to you by your health care provider. Make sure you discuss any questions you have with your health care provider. Document Revised: 06/17/2020 Document Reviewed: 04/24/2020 [employer] Patient Education ? 2022 [employer]. [facility] Sona 03-19-2024 CNPN Telephone (PAINMN) DONG WHITMORE ([id number]) 1950 M Date Time Provider Department 03/19/24 HERBERTH ARAUJO During your visit today, we recorded the following information about you: Emilee So RN 03/19/2024 1:32 PM Signed Spoke with patient at request of nursing scheduler as patient has questions about referral to infectious disease. Patient states that he spoke with his PCP, Dr. Hickman ([phone]) who spoke with Dr. Vega in Infectious disease at [facility]. Dr. Hickman ordered lab work [...] Status:Closed by EMILEE SO on 03/21/24 Normal [facility] BMPon 03-08-2024 Anion gap [Moles/Vol] 14 mmol/L Normal - [facility] Comment on above: Performed By: #### 2 [id number] #### [facility] [address] [place] [address] Calcium [Mass/Vol] 9.4 mg/dL Normal 8.9-11.1 [facility] Comment on above: Performed By: #### 2 [id number] #### [facility] [address] [place] [address] Chloride [Moles/Vol] 104 mmol/L Normal 101-111 [facility] Comment on above: Performed By: #### 2 [id number] #### [facility] [address] [place] [address] CO2 [Moles/Vol] 24 mmol/L Normal 21-31 [facility] Comment on above: Performed By: #### 2 [id number] #### [facility] [address] [place] [address] Creatinine [Mass/Vol] 1.5 mg/dL High 0.5-1.3 [facility] Comment on above: Performed By: #### 2 [id number] #### [facility] [address] [place] [address] Glucose [Mass/Vol] 109 mg/dL Normal 55-199 [facility] Comment on above: Performed By: #### 2 [id number] #### [facility] [address] [place] [address] Potassium [Moles/Vol] 4.2 mmol/L Normal 3.5-5.3 [facility] Comment on above: Performed By: #### 2 [id number] #### [facility] [address] [place] [address] Sodium [Moles/Vol] 138 mmol/L Normal 135-145 [facility] Comment on above: Performed By: #### 2 [id number] #### [facility] [address] [place] [address] Urea nitrogen [Mass/Vol] 26 mg/dL High 5-21 [facility] Comment on above: Performed By: #### 2 [id number] #### [facility] [address] [place] [address] Urea nitrogen/Creatinine [Mass ratio] 17 No Units Normal 10-20 [facility] Comment on above: Performed By: #### 2 125875 #### [facility] [address] [place] [address] Consent for Treatmenton 02-08 Consent for Treatment [id number] [id number] Normal [facility] LbaD9mns 03-08-2024 HbA1c (Bld) [Mass fraction] 6.5 % High <=5.9 [facility] Comment on above: Performed By: #### 7 [id number] #### [facility] [address] [place] [address] eGFRon 03-08-2024 eGFR 48 mL/min/1.73 m2 Low >=59 [facility] Comment on above: Order Comment: Order added by Discern Expert. Performed By: #### 1 [id number] #### [facility] [address] [place] [address] Ambulatory Visit Summaryon 0 03-07-2024 Ambulatory Visit Summary HAIM DONG A :1950 Visit Date:03/07/2024 Ambulatory Visit Instructions Your [...] EDT With: Kristofer SCHUSTER, Haider Bee Where: [facility] Invalid Interpretation Code [address] [place] [address]- \.br \ Monday 9:15 AM EDT \.br\ With: Araceli BERMUDEZ MD\.br\ Where: [facility] Family Medicine Office/Clini c Noteon 03-07-2024 Family Medicine Office/Clinic Note HPI Staff Dong is a 73 year old male presenting for infection right leg referral to infectious disease and possible cultures called with info as she's not sure she'll be with her at this appt He was seen at [facility] and is having drg?? end [...] Ordered: Basic Metabolic Panel Blood Culture Charcoal [facility] External Ambulatory Referral HgbA1c 2. Stage 3a chronic kidney disease (N18.31: Chronic kidney disease, stage 3a) - Will recheck today. - No concerns Ordered: Basic Metabolic Panel Blood Culture Charcoal [facility] External Ambulatory Referral HgbA1c 3. Stasis ulcer (I83.009: Varicose veins of unspecified lower extremity with ulcer of unspecified site) - Most likely the cause of number 1. - No ulcer today Ordered: Basic Metabolic Panel Blood Culture Charcoal [facility] [place] Ambulatory Referral HgbA1c 4. Morbid obesity with body mass index of 40.0-44.9 in adult (E66.01: Morbid (severe) obesity due to excess calories) - Diet and exercise advsied Ordered: Basic Metabolic Panel Blood Culture Charcoal Body Mass Index (BMI) documented 3008F Current tobacco non-user 1036F Depression Screening Negative 3352F [facility] [place] Ambulatory Referral HgbA1c Influenza immunization administered [...] Ordered: Basic Metabolic Panel Blood Culture Charcoal [facility] External Ambulatory Referral HgbA1c 6. BMI 40.0-44.9, [...] neuropathy Complex (more content not included)... Normal [facility] Comment on above: Result Comment: Elec tronically Signed By: Kristofer SCHUSTER, Haider Sandhu.cyrus\Date and Time Signed: 03/07/24 11:12 EDT Physician Referralon 2 024 Physician Referral [id number]. [id number] Normal [facility] CNOVon 02-29-2024 CNOV Office Visit (PAINMN ) DONG WHITMORE ([id number]) 1950 M Date Time Provider Department 02/29/24 1:30 PM HERBERTH ARAUJO PAINMN During your visit today, we recorded the following information about you: Temperature Pulse Blood pressure Weight 97.4 degrees 62/minute 138/73 122.5 kg Height 1.702 m Herberth Araujo MD, PhD 03/18/2024 7:05 PM Signed [facility] New Patient Consultation Referring Physician: SELF Chief Complaint: Right third toe pain SUBJECTIVE: Dong Whitmore is a 73 year old male with a pertinent past medical history of diabetes who presents to [facility] for the evaluation of right third toe pain. 15-year history of right third toe pain. He notes that over this time the pain has become increasingly severe has caused him significant discomfort and suffering. He has been to many specialists in the [facility]-over the course of the past 15 [...] 16th pe (more content not included)... Normal [facility] Reminderson 02-09-2024 Reminders - From: Vandana Hilton MA (EU - Recalljakob Bermudez) To: EU - Bia Bermudez; Sent: 02/09/2024 13:50:30 EDT Show up: 06/09/2024 13:50:00 EDT Subject: renal us Reminder/Recall Addendum by Sharla Longoria on January 30, 2024 13:44:48 EDT From: Sharla Longoria (EU - Clinical) To: PREM Bermudez; Sent: 01/30/2024 13:44:48 EDT Subject: FW: f/u after ESWL -Order for Renal US sent to [facility] Due Date/Time: 05/31/2024 13:44:00 EDT Caller Name: DONG WHITMORE; Caller Number: H , b [phone] Addendum by Sharla Longoria on January 30, 2024 13:43:59 EDT Called pt and advised him of below message. Pt voiced understanding. Pt scheduled for 07/17/24 w/ TERRIE. Will send to [facility] recall for TERRIE. Addendum by Araceli BERMUDEZ MD on January 29, 2024 18:12:03 EDT From: Araceli BERMUDEZ MD To: EU - Clinical; Sent: 01/29/2024 18:12:03 EDT Subject: RE: f/u after ESWL -Order for Renal US sent to Caller Name: DONG WHITMORE; Caller Number: H , b [phone] Please let the patient know that the [...] months with a kidney ultrasound repeated. Thanks [facility] Addendum by Erica Rossi on January 29, 2024 13:40:04 EDT From: Erica Rossi (EU - Pending Results) To: Araceli BERMUDEZ MD; Sent: 01/29/2024 13:40:04 EDT Subject: FW: f/u after ESWL -Order for Renal US sent to Caller Name: DONG WHITMORE; Caller Number: H , D [phone] Pt s/p R ESWL 01/03, to get [...] ASMITA Martines APRN, [facility] (EU - RUPERT/Cook Messages & Refills) To: EU - Pending Results; Sent: 01/19/2024 12:57:58 EDT Subject: FW: f/u after ESWL -Order for Renal US sent to Due Date/Time: 01/25/2024 12:57:00 EDT Caller Name: DONG WHITMORE; Caller Number: H , B [phone] Addendum by Nan Hodges MA on January 19, 2024 12:33:50 EDT From: Nan Hodges MA (EU - Pending Results) To: EU - RUPERT/Cook Messages & Refills; Sent: 01/19/2024 12:33:50 EDT Subject: RE: f/u after ESWL -Order for Renal US sent to Due Date/Time: 01/25/2024 12:33:00 EDT Caller Name: DONG WHITMORE; Caller Number: H , B [phone] Scheduled 01/24/24 [facility] From: Elena Robbins To: EU - Pending Results; Sent: 01/08/2024 09:17:33 EDT Subject: f/u after ESWL -Order for Renal US sent to Due Date/Time: 01/17/2024 09:17:00 EDT Caller Name: DONG WHITMORE; Caller Number: H , B [phone] Pt is PO R ESWL 01/03 - he is to get renal US in 2 weeks and call for results if we don't contact him 1st - order sent to [facility] 02-06-2024 CNPN Telephone (PAMAVN) DONG WHITMORE ([id number]) 1950 M Date Time Provider Department 02/06/24 FRANCOISE SINGLETARY During your visit today, we recorded the following information about you: Lela Hyatt RN 02/06/2024 10:46 AM Signed ----- Message from Francoise Singletary MD sent at 02/05/2024 3:12 PM EDT ----- Do you mind calling him and giving him the number to schedule at [facility] to discuss DRG? I'd suggest seeking an appointment with the following doctors who perform DRG implantation: Dr. Carlisle, Dr. Araujo, Dr. Dan, Dr. Moo Heard and Dr. Kamara may do DRG - I'm not sure. Thanks Lela! ----- Message ----- From: Livia Lester PA-C Sent: 02/05/2024 2:07 PM EDT To: Francoise Singletary MD No one on this side of [facility] that I know of does DRG so, we also send to [facility] I would just have Lela [...] I know who do DRG are at [facility]. How do we refer him there? [...] Status:Closed by LELA HYATT on 02/06/24 Normal [facility] CNOVon 02-05-2024 CNOV Office Visit (DENICE ) DONG WHITMORE ([id number]) 1950 M Date Time Provider Department 02/05/24 11:30 AM FRANCOISE SINGLETARY During your visit today, we recorded the following information about you: Pulse Blood pressure Weight 80/minute 131/70 124.7 kg Francoise Singletary MD 02/05/2024 3:14 PM Signed [facility] Pain Management Department Consultation Date: February 02, [...] The patient has seen other pain providers. [facility] Neurology OV 02/01/22 Assessment and Plan [...] year old (more content not included)... Normal [facility] Renalon 01-26-2024 US Renal Exam [...] Finn Rosenbaum MD Transcribed by: GREGORIO Technologist: GRANT Sorto [facility] Consent for Treatmenton 01-07 Consent for Treatment [id number]#1.0 0TIFF Normal [facility] Consultation Noteon 01-22-20 Consultation Note [id number]#1.0 0TIFF Normal [facility] Consultation Note [id number]#1.0 0TIFF Normal [facility] IntraOperative Documentson 0 01-08-2024 IntraOperative Documents [id number]#1.0 0TIFF Normal [facility] Postoperative Documentson Postoperative Documents [id number]#1. 00TIFF Normal [facility] Consent for Anesthesiaon Consent for Anesthesia [id number]#1. 00TIFF [facility] Discharge Instructionson Discharge Instructions [id number]#1. 00TIFF Normal [facility] IntraOperative Documentson 0 01-05-2024 IntraOperative Documents [id number]#1. 00TIFF [facility] IntraOperative Documents [id number]#1. 00TIFF [facility] Main OR Intraoperative Recor don 01-05-2024 Main OR Intraoperative Record IntraOp Document Type FT Summary Primary Physician: Araceli BERMUDEZ MD Finalized Date/Time: 01/05/24 12:41:56 Pt. Name: DONG WHITMORE/Sex: 1950 Male Med Rec #: [id number] Physician: Araceli BERMUDEZ MD Financial #: [id number] Pt. Type: A Room/Bed: Admit/Disch: 01/04/24 06:41:12 [...] Loja Role Performed Anesthesiologist Surgeon - Primary Student Support Services Director - Primary Resort Desk Clerk Time In 01/04/24 09:07:00 01/04/24 09:07:00 01/04/24 [...] and tissue Entry 1 Skin Integrity Intact, [place], Warm, and Skin (more content not included)... Normal [facility] Preoperative Documentson Preoperative Documents [id number]#1. 00TIFF Normal [facility] Progress Note-Physicianon Progress Note-Physician Patient: DONG WHITMORE [...] when meets criteria ( To home ). [facility] Comment on above: Result Comment: [...] Problems Vitamin D deficiency / SNOMED CT 55703882 / Confirmed Urgency of urination / SNOMED CT 557746255 / Confirmed Type 2 diabetes mellitus with hyperglycemia, without long-term current use of insulin / ICD-10-CM E11.65 / Confirmed Type 2 diabetes mellitus with peripheral vascular disease / SNOMED CT 988584931 / Confirmed linked DM with PVD per OP CDI policy. Type 2 diabetes mellitus with stage 3a chronic kidney disease and hypertension / SNOMED CT 451904351 / Confirmed linked DM with CKD and HTN per OP CDI policy. 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 Shoulder pain / SNOMED CT 07630847 / Confirmed Renal mass / SNOMED CT 176866032 / Confirmed Psoriasis / SNOMED CT 61611433 / Confirmed PVD (peripheral vascular disease) / SNOMED CT 8149560613 / Confirmed OA (osteoarthritis) / SNOMED CT 4906471952 / Confirmed ULISES (obstructive sleep apnea) / SNOMED CT 421725829 / Confirmed SANTANA (nonalcoholic steatohepatitis) / SNOMED CT 4544109319 / Confirmed Lumbar spondylosis / SNOMED CT 541089728 / Confirmed noted in 10/16/2023 Pain Management Consult Note page 3. added per OP CDI policy. Impotence / SNOMED CT 4621646321 / Confirmed History of kidney stones / SNOMED CT 8276668163 / Confirmed Hiatal hernia / SNOMED CT 953602052 / Confirmed GERD (gastroesophageal reflux disease) / SNOMED CT 558851612 / Confirmed Nerves / SNOMED CT 1278700857 / Confirmed Primary hypertension / SNOMED CT 70374699 / Confirmed Anticoagulated / SNOMED CT 056703133 / Confirmed Complex renal cyst / SNOMED CT 8766577354 / Confirmed Chronic painful diabetic neuropathy / SNOMED CT 8974414425 / Confirmed noted in 10/16/2023 Pain Management Consult Note page 3. added per OP CDI policy. Pain, foot, right, chronic / SNOMED CT 4990702048 / Confirmed noted in 10/16/2023 Pain Management Consult Note page 3. added per OP CDI policy. Chronic bilateral low back pain without sciatica / SNOMED CT 550008884 / Confirmed Stage 3a chronic kidney disease / SNOMED CT 9006510552 / Confirmed Excessive dietary caloric intake / SNOMED CT 204363721 / Confirmed Morbid obesity with body mass index of 40.0-44.9 in adult / SNOMED CT 5124953492 / Confirmed BPH with obstruction/lower urinary tract symptoms / SNOMED CT 9108030374 / Confirmed Anxiety / SNOMED CT 41599114 / Confirmed Allergic rhinitis / SNOMED CT 509597670 / Confirmed Acquired absence of right great toe / SNOMED CT 341908193 / Confirmed added per 07/24/2023 query response. Resolved: Neuropathy / SNOMED CT 7694817514 idiopathic chronic Resolved: Hyperlipidemia / SNOMED CT 58892032 Resolved: Depressed mood / SNOMED CT 797158183 Resolved: Amputation of toe of right foot / ICD-10-CM S98.131A Resolved: BPH - benign prostatic hyperplasia / SNOMED CT 1889457208 Resolved: Anxiety disorder / SNOMED CT 568034665 Canceled: Microscopic hematuria / SNOMED CT 046484249 Canceled: Kidney stone / IMO 13301 Canceled: Hypertension / SNOMED CT 7769836768 Canceled: HLD (hyperlipidemia) / SNOMED CT 37200577 Canceled: Glycosuria / SNOMED CT 28699227 Canceled: Diabetes / SNOMED CT 063184989 Histories Procedure history: TOE AMPUTATION on 11/16/2018 at 68 Years. Cysto, Lt retrogrades, Lt stent, Ureteral cath, Lt ESWL ([id number]) on 06/07/2018 at 67 Years. Comments: 06/21/2019 14:34 EDT - Marilynn Zhang MA Cysto, Lt retr (more content not included)... Normal [facility] Comment on above: Result Comment: Elec tronically [...] mGy = na DAP = na Normal [facility] Capillary Glucose POCon 12-08 Glucose [Mass/Vol] 133 mg/dL High 55-99 [facility] Comment on above: Performed By: #### 2 [id number] #### [facility] Laboratory [address] [place] [address] Consent for Procedure/Surger yon 01-04-2024 Consent for Procedure/Surgery [id number]#1. 00TIFF Normal [facility] Consent for Treatmenton 12-08 Consent for Treatment [id number]#1.0 0TIFF Normal [facility] Discharge Instructionson Discharge Instructions CHRISETHEL DONG A :1950 Visit Date:01/04/2024 Inpatient Discharge Instructions Your [...] Araceli BERMUDEZ MD Where: [facility] Invalid Interpretation Code [address] [place] [address]- \.br \ Monday 9:30 AM EDT \.br\ With:\.br\ Where: [facility] Comment on above: Result Comment: Elec tronically Signed By: Rakel Barney RN\.br\Date and Time Signed: 01/04/24 10:37 EDT H&P Updateon 01-04-2024 H&P Update [id number]#1. 00TIFF Normal [facility] Inpatient Patient Summaryon 01-04-2024 Inpatient Patient Summary [address] [address] [facility] Clinical Discharge Instructions PERSON INFORMATION Name: DONG WHITMORE PHYSICIANS Admitting Physician: Araceli BERMUDEZ MD Attending Physician: Araceli BERMUDEZ MD PCP: Haider Hickman MD Discharge Diagnosis: Comment: PATIENT EDUCATION INFORMATION Instructions: Lithotripsy, Care After Medication Leaflets: Follow up: With: Address: When: Araceli LATRICIA [address], [address], [facility] [address] [place] [address] Business (1) Comments: Please call my office [...] for follow-up With: Address: When: [place] [address] [facility] [address] Business (1) Type Location Start Finish State URO Office Visit [facility] 03/13/2024 9:45 AM 03/13/2024 10:00 AM Confirmed FM Open [facility] 03/26/2024 2:15 PM 03/26/2024 2:30 PM Confirmed FM Medicare Wellness Subsequent [facility] 05/13/2024 9:30 AM 05/13/2024 10:30 AM Confirmed URO Office Visit [facility] 11/06/2024 10:30 AM 11/06/2024 10:45 AM Confirmed MEDICATION LIST New Medications [id number], [address], [place] [id number], [phone] acetaminophen-hydrocod one (acetaminophen-hydroco done 325 mg-5 mg [...] Tablets By Mouth every day. Comment: Normal [facility] Main OR PACU I Recordon 12-08 Main OR PACU I Record PACU Phase I Document Type FT Summary Primary Physician: Araceli BERMUDEZ MD Finalized Date/Time: 01/04/24 10:17:21 Pt. Name: CHRISETHEL DONGANTHONY Ann/Sex: 1950 Male Med Rec #: [id number] Physician: Araceli BERMUDEZ MD Financial #: [id number] Pt. Type: A Room/Bed: Admit/Disch: 01/04/24 06:41:12 - Institution: Case Times [...] By: Sangita Ross RN 01/04/24 10:17 Normal [facility] Main OR PACU II Recordon Main OR PACU II Record PACU Phase II Document Type FT Summary Primary Physician: Araceli BERMUDEZ MD Finalized Date/Time: 01/04/24 12:01:26 Pt. Name: DONG WHITMORE/Sex: 1950 Male Med Rec #: [id number] Physician: Araceli BERMUDEZ MD Financial #: [id number] Pt. Type: A Room/Bed: [place] [address] Admit/Disch: 01/04/24 06:41:12 - 01/04/24 12:00:26 Institution: [...] Barney RN Document Signatures Signed By: Rakel Bareny RN 01/04/24 12:01 [facility] Main OR Preoperative Recordo n 01-04-2024 Main OR Preoperative Record PreOp Document Type FT Summary Primary Physician: Araceli BERMUDEZ MD Finalized Date/Time: 01/04/24 09:57:43 Pt. Name: DONG WHITMORE /Sex: 1950 Male Med Rec #: [id number] Physician: Araceli BERMUDEZ MD Financial #: [id number] Pt. Type: A Room/Bed: [facility]/ Admit/Disch: 01/04/24 06:41:12 - Institution: Case [...] By: Sim Ling Document Signatures Signed By: Smi Ling 01/04/24 09:57 Normal [facility] Monitor Recordon 01-04-2024 Monitor Record [id number]#1. 00TIFF Normal [facility] Operative Reporton Operative Report Patient: DONG WHITMORE [...] placed per urethra and a well-lubricated 22 Moroccan is urethroscope with 30 degree lens then [...] pyelogram was then performed utilizing a 6 Moroccan open-ended ureteral catheter. The ureter is normal [...] removed and he was transferred to the [place] and then back to PACU in satisfactory condition, stable vital signs. Plan to be for discharge home with plans for a follow-up kidney ultrasound within the next couple weeks. Prescription sent to pharmacy for doxycycline for antibiotic prophylaxis as well as 7 pills of Robinson 5/325. She was in agreement with the plan. . Estimated Blood Loss: 0 ml. Complications: None. Anesthesia type: General. Normal [facility] Comment on above: Result Comment: Elec tronically Signed By: Araceli BERMUDEZ MD\.br\Date and Time Signed: 01/04/24 10:09 EDT Outpatient Surgery Discharge Instructionon 01-04-2024 Outpatient Surgery Discharge Instruction [place] [id number] Patient Discharge Instructions PERSON INFORMATION Name: DONG [...] Follow up: With: Address: When: Araceli BERMUDEZ [address] [place], [place] [address], [address], [facility] [address] [place] [address] Business (1) Comments: Please call my office [...] for follow-up With: Address: When: [place] [address] [facility] [address] Business (1) Type Location Start Finish State URO Office Visit [facility] [place] 03/13/2024 9:45 AM 03/13/2024 10:00 AM Confirmed FM Open [facility] Celestine 03/26/2024 2:15 PM 03/26/2024 2:30 PM Confirmed FM Medicare Wellness Subsequent [facility] Jessie 05/13/2024 9:30 AM 05/13/2024 10:30 AM Confirmed URO Office Visit [facility] [place] 11/06/2024 10:30 AM 11/06/2024 10:45 [...] to serve you. Thank you for choosing [facility] HERE ARE THE MEDICATION CHANGES THAT OCCURRED DURING YOUR HOSPITAL STAY New Medications [id number], [address], [place] [phone], [phone] acetaminophen-hydrocod one (acetaminophen-hydroco done 325 mg-5 mg [...] health care p (more content not included)... [facility] PT - Progress Noteson 2023 PT - Progress Notes [id number]#1.0 0TIFF [facility] Patient Education - Texton 0 [...] these instructions at home: Medicines ? Take bibv-mks-fafpfxy and prescription medicines only as told by [...] forming. ? (more content not included)... Normal [facility] Physician Referralon 024 Physician Referral [id number]#1. 00TIFF Normal [facility] Physician Referral [id number]#1. 00TIFF Normal [facility] BMPon 12-29-2023 Anion gap [Moles/Vol] 13 mmol/L Normal 6-16 [facility] Comment on above: Performed By: #### 2 410811, 5778759, 02956868, [id number] #### [facility] [address] [place] [address] Calcium [Mass/Vol] 9.1 mg/dL Normal 8.9-11.1 [facility] Comment on above: Performed By: #### 2 353946, 2333877, 94641998, 21420329 #### [facility] [address] [place] [address] Chloride [Moles/Vol] 106 mmol/L Normal 101-111 [facility] Comment on above: Performed By: #### 2 861623, 6278433, 06878189, 09982343 #### [facility] [address] [place] [address] CO2 [Moles/Vol] 25 mmol/L Normal 21-31 [facility] Comment on above: Performed By: #### 2 441241, 6966091, 17503071, 73020489 #### [facility] [address] [place] [address] Creatinine [Mass/Vol] 1.2 mg/dL Normal 0.5-1.3 [facility] Comment on above: Performed By: #### 2 974550, 0131067, 95788031, 25644182 #### [facility] [address] [place] [address] Glucose [Mass/Vol] 145 mg/dL Normal 55-199 [facility] Comment on above: Performed By: #### 2 754122, 0046672, 83682552, 62431490 #### [facility] [address] [place] [address] Potassium [Moles/Vol] 3.8 mmol/L Normal 3.5-5.3 [facility] Comment on above: Performed By: #### 2 819599, 1008973, 98007488, 75827874 #### [facility] [address] [place] [address] Sodium [Moles/Vol] 140 mmol/L Normal 135-145 [facility] Comment on above: Performed By: #### 2 245087, 1926048, 83470207, 31022372 #### [facility] [address] [place] [address] Urea nitrogen [Mass/Vol] 25 mg/dL High 5-21 [facility] Comment on above: Performed By: #### 2 140544, 0006326, 04820129, 70042991 #### [facility] [address] [place] [address] Urea nitrogen/Creatinine [Mass ratio] 21 No Units High 10-20 [facility] Comment on above: Performed By: #### 2 897285, 5913978, 01167727, 56204721 #### [facility] [address] [place] [address] CBC w/ Auto Diffon 4 Basophils/100 WBC (Bld) 0.5 % Normal 0.0-2.0 [facility] Comment on above: Performed By: #### 2 184061, 2448108, 00508402, 61640398 #### [facility] [address] [place] [address] Basophils/Leukocytes Auto (Bld) [Pure # fraction] 0.0 E9/L Normal 0.0-0.2 [facility] Comment on above: Performed By: #### 2 252571, 7586151, 23297711, 36811346 #### [facility] [address] [place] [address] Eosinophils (Bld) [#/Vol] 0.3 E9/L Normal 0.0-0.5 [facility] Comment on above: Performed By: #### 2 181172, 7309503, 96953386, 54484720 #### [facility] [address] [place] [address] Eosinophils/100 WBC (Bld) 5.7 % Normal 0.0-8.0 [facility] Comment on above: Performed By: #### 2 105161, 5225486, 18668056, 79527870 #### [facility] [address] [place] [address] Erythrocyte distribution width (RBC) [Ratio] 14.6 % High 10.9-14.2 [facility] Comment on above: Performed By: #### 2 999928, 8455456, 19315715, 12595959 #### [facility] [address] [place], [place] [address] Hematocrit (Bld) [Volume fraction] 38.3 % Normal 37.7-49.0 [facility] Comment on above: Performed By: #### 2 547479, 0182018, 26586518, 35617715 #### [facility] [address] [place] [address] Hemoglobin (Bld) [Mass/Vol] 12.8 g/dL Low 13.5-17.5 [facility] Comment on above: Performed By: #### 2 783099, 3696897, 17744097, 05060675 #### [facility] [address] [place] [address] Lymphocytes (Bld) [#/Vol] 0.9 E9/L Low 1.0-4.0 [facility] Comment on above: Performed By: #### 2 986498, 4261454, 32310340, 03880485 #### [facility] [address] [place] [address] Lymphocytes/100 WBC (Bld) 17.1 % Normal 14.0-50.0 [facility] Comment on above: Performed By: #### 2 222859, 3402417, 22979426, 14481482 #### [facility] [address] [place] [address] MCH (RBC) [Entitic mass] 28.1 pg Normal 27.0-34.0 [facility] Comment on above: Performed By: #### 2 566086, 0689518, 73616927, 76379683 #### [facility] [address] [place] [address] MCHC (RBC) [Mass/Vol] 33.4 g/dL Normal 31.4-36.0 [facility] Comment on above: Performed By: #### 2 111260, 7512364, 07040639, 01584604 #### [facility] [address] [place] [address] MCV (RBC) [Entitic vol] 84.1 fL Normal 80.0-100.0 [facility] Comment on above: Performed By: #### 2 529540, 9454082, 25563555, 34418295 #### [facility] [address] [place] [address] Monocytes (Bld) [#/Vol] 0.4 E9/L Normal 0.2-1.0 [facility] Comment on above: Performed By: #### 2 569707, 2608627, 47973135, 43575066 #### [facility] [address] [place] [address] Neutrophils (Bld) [#/Vol] 3.9 E9/L Normal 2.0-7.5 [facility] Comment on above: Performed By: #### 2 341881, 9200420, 92997689, 26203379 #### [facility] [address] [place] [address] Neutrophils/100 WBC (Bld) 69.6 % Normal 36.0-75.0 [facility] Comment on above: Performed By: #### 2 557058, 2305331, 33474792, 41111175 #### [facility] [address] [place] [address] Platelet 178.0 E9/L Normal 150.0-500.0 [facility] Comment on above: Performed By: #### 2 953161, 0137591, 53800228, 24552221 #### [facility] [address] [place] [address] Platelet mean volume (Bld) [Entitic vol] 8.4 fL Normal 6.4-10.8 [facility] Comment on above: Performed By: #### 2 216487, 8392785, 05905823, 89574970 #### [facility] [address] [place] [address] RBC (Bld) [#/Vol] 4.6 E12/L Normal 4.3-5.9 [facility] Comment on above: Performed By: #### 2 927339, 6139265, 26806486, 08388953 #### [facility] [address] [place] [address] WBC corrected for nucl RBC Auto (Bld) [#/Vol] 5.5 E9/L Normal 4.0-11.0 [facility] Comment on above: Performed By: #### 2 613300, 2572757, 77861879, 47784289 #### [facility] [address] [place] [address] Consent for Treatmenton 12-08 Consent for Treatment [id number]#1.0 0TIFF Normal [facility] PT & PTTon 12-29-2023 aPTT Coag (PPP) [Time] 35.7 second(s) Normal 25.1-36.5 [facility] Comment on above: Result Comment: Para meter [...] the same coagulation reagent and instrumentation as [facility]. Currently there are no coagulation studies available worldwide for children to 14 days, and no normal ranges. Heparin therapeutic range (represented by Anti-Factor Xa activity of 0.2 - 0.4 U/mL) corresponds to PTT of 56.6 - 109.0 sec. Performed By: #### 2 947205, 4076964, 99245755, 43483607 #### [facility] [address] [place] [address] INR Coag (PPP) [Relative time] 1.23 {INR} Invalid Interpretation Code [facility] Comment on above: Result Comment: INR results are specifically intended to assess patients stabilized on long-term Anticoagulation therapy suggested INR?s ?Less Intensive Anticoagulation? 2.0 ? 3.0 Conventional Range 3.0 ? 4.5 Performed By: #### 2 928999, 5552900, 77020090, 57013231 #### [facility] [address] [place] [address] PT Coag (PPP) [Time] 13.8 second(s) High 9.4-12.5 [facility] Comment on above: Result Comment: 15 d [...] the same coagulation reagent and instrumentation as [facility]. Currently there are no coagulation studies available worldwide for children to 14 days, and no normal ranges. Performed By: #### 2 251421, 2889902, 97296912, 53294006 #### [facility] [address] [place] [address] UA with Cult Rflxon 12-29-19 24 Color (U) Light-Yellow Normal Yellow [facility] Comment on above: Result Comment: Micr oscopic readings are only performed on those samples that meet specific criteria set forth by [facility]. Performed By: #### 4 [id number] ####[facility] [address] [place] [address] Glucose (U) [Mass/Vol] Negative Normal Negative [facility] Comment on above: Performed By: #### 4 [id number] ####[facility] [address] [place] [address] Ketones Ql (U) Negative Normal Negative [facility] Comment on above: Performed By: #### 4 [id number] ####[facility] [address] [place] [address] UA Blood Negative Normal Negative [facility] Comment on above: Performed By: #### 4 [id number] ####[facility] [address] [place] [address] UA Clarity Clear Normal Clear [facility] Comment on above: Performed By: #### 4 [id number] ####[facility] [address] [place] [address] UA Leuk Est Negative Normal Negative [facility] Comment on above: Performed By: #### 4 [id number] ####[facility] [address] [place] [address] UA Nitrite Negative Normal Negative [facility] Comment on above: Performed By: #### 4 [id number] ####[facility] [address] [place] [address] UA pH 6.5 Invalid Interpretation Code 5.0-9.0 [facility] Comment on above: Performed By: #### 4 [id number] ####[facility] [address] [place] [address] UA Protein Trace Abnormal Negative [facility] Comment on above: Performed By: #### 4 [id number] ####[facility] [address] [place] [address] UA Spec Grav 1.021 Invalid Interpretation Code 1.005-1.030 [facility] Comment on above: Performed By: #### 4 [id number] ####[address] [address] UA Urobilinogen Negative Normal Negative [facility] Comment on above: Performed By: #### 4 [id number] ####[address] [address] Urobilinogen (U) [Mass/Vol] Negative Normal Negative [facility] Comment on above: Performed By: #### 4 [id number] ####[address] [address] UA Spec Desc Clean Catch Normal [facility] Comment on above: Performed By: #### 4 [id number] ####[place] [id number] XR Chest 2 Viewson XR Chest 2 Views Exam Date/Time: 12/29/2023 09:35 EDT Reason for Exam: P.A.T. Report [facility] [phone] IMPRESSION: No acute infiltrates or effusions, no [...] mGy = na DAP = na Normal [facility] eGFRon 12-29-2023 eGFR 63 mL/min/1.73 m2 Normal >=59 [facility] Comment on above: Order Comment: Order added by Discern Expert. Performed By: #### 2 341895, 9192286, [id number], [id number] #### [facility] Laboratory [address] [place] [address] Family Medicine Office/Clini c Noteon 12-28-2023 Family [...] (12/05/2016), ysto, (more content not included)... Normal [facility] Comment on above: Result Comment: Elec tronically Signed By: Kristofer SCHUSTER, Haider Sandhu.br\Date and Time Signed: 12/28/23 09:51 EDT Physician Orderon 12-28-2023 Physician Order [id number]#1.0 0TIFF Normal [facility] Ambulatory Visit Summaryon 0 12-26-2023 Ambulatory Visit [...] SCHUSTER, Araceli Treadwell Where: [facility] Invalid Interpretation Code [address] [place] [address]- \.br \ Monday 9:30 AM EDT \.br\ With:\.br\ Where: [facility] CMPon 12-26-2023 Albumin [Mass/Vol] 4.2 g/dL Normal 3.3-5.0 [facility] Comment on above: Performed By: #### 2 171713, 0935699, 57108161, 0138861 ####[place] [address] [place] [address] Albumin/Globulin (S) [Mass conc ratio] 1.6 Normal 1.1-2.2 [facility] Comment on above: Performed By: #### 2 967514, 9379079, 27980944, 7161821 ####[facility] [address] [place] [address] ALP [Catalytic activity/Vol] 67 Int._Unit/L Normal 21-98 [facility] Comment on above: Performed By: #### 2 692826, 3189936, 52489497, 3700139 ####[facility] [address] [place] [address] ALT No additional P-5'-P [Catalytic activity/Vol] 20 Int._Unit/L Normal 6-46 [facility] Comment on above: Performed By: #### 2 376551, 4753269, 49108980, 6878859 ####[facility] [address] [place] [address] Anion gap [Moles/Vol] 10 mmol/L Normal 6-16 [facility] Comment on above: Performed By: #### 2 200355, 1407391, 21428466, 7641492 ####[facility] [address] [place] [address] AST [Catalytic activity/Vol] 21 Int._Unit/L Normal 5-43 [facility] Comment on above: Performed By: #### 2 609990, 9079454, 90850458, 8948483 ####[facility] [address] [place] [address] Bilirubin [Mass/Vol] 0.6 mg/dL Normal 0.0-1.1 [facility] Comment on above: Performed By: #### 2 220310, 7638073, 96812168, 2418678 ####[facility] [address] [place] [address] Calcium [Mass/Vol] 9.3 mg/dL Normal 8.9-11.1 [facility] Comment on above: Performed By: #### 2 964666, 6667754, 37901226, 7544981 ####[facility] [address] [place] [address] Chloride [Moles/Vol] 105 mmol/L Normal 101-111 [facility] Comment on above: Performed By: #### 2 926755, 9854602, 16513955, 3729572 ####[facility] [address] [place] [address] CO2 [Moles/Vol] 27 mmol/L Normal 21-31 [facility] Comment on above: Performed By: #### 2 267728, 6293098, 74286729, 5025116 ####[facility] [address] [place] [address] Creatinine [Mass/Vol] 1.3 mg/dL Normal 0.5-1.3 [facility] Comment on above: Performed By: #### 2 952990, 0072684, 09303467, 5372478 ####[facility] [address] [place] [address] Globulin (S) [Mass/Vol] 2.6 g/dL Normal 1.4-4.0 [facility] Comment on above: Performed By: #### 2 317285, 7234936, 80554440, 3620419 ####[facility] [address] [place] [address] Glucose [Mass/Vol] 135 mg/dL Normal 55-199 [facility] Comment on above: Performed By: #### 2 339252, 3281887, 83165517, 2933952 ####[facility] [address] [place] [address] Potassium [Moles/Vol] 4.1 mmol/L Normal 3.5-5.3 [facility] Comment on above: Performed By: #### 2 789522, 1446665, 63294422, 4193622 ####[facility] [address] [place] [address] Protein [Mass/Vol] 6.8 g/dL Normal 6.0-7.8 [facility] Comment on above: Performed By: #### 2 645296, 2112043, 35443401, 8191416 ####[facility] [address] [place] [address] Sodium [Moles/Vol] 138 mmol/L Normal 135-145 [facility] Comment on above: Performed By: #### 2 778091, 9517371, 97916159, 9768478 ####[facility] [address] [place] [address] Urea nitrogen [Mass/Vol] 27 mg/dL High 5-21 [facility] Comment on above: Performed By: #### 2 525177, 6805306, 83995875, 5093579 ####[facility] [address] [place] [address] Urea nitrogen/Creatinine [Mass ratio] 21 No Units High 10-20 [facility] Comment on above: Performed By: #### 2 179386, 7487887, 99334223, 7705512 ####[facility] [address] [place] [address] Lipid Panelon 12-26-2023 Cholesterol [Mass/Vol] 118 mg/dL Low 120-200 [facility] Comment on above: Performed By: #### 2 342483, 6329543, 29985683, 1247983 ####[facility] [address] [place] [address] Cholesterol in HDL [Mass/Vol] 33 mg/dL Invalid Interpretation Code [facility] Comment on above: Result Comment: '>= 60 LOW RISK' '<= 40 HIGH RISK' Performed By: #### 2 298141, 6671667, 85667961, 5559626 ####[facility] [address] [place] [address] Cholesterol in LDL [Mass/Vol] 57 mg/dL Normal <=129 [facility] Comment on above: Performed By: #### 2 157455, 9616587, 93624847, 5499461 ####[facility] [address] [place] [place] [address] Cholesterol in VLDL [Mass/Vol] 45 mg/dL High 7-40 [facility] Comment on above: Performed By: #### 2 596481, 5045446, 54170209, 1638043 ####[facility] [address] [place] [place] [address] Triglyceride [Mass/Vol] 225 mg/dL High <=149 [facility] Comment on above: Performed By: #### 2 174084, 5601732, 51139387, 9350079 ####[facility] [address] [place] [address] U Microalbon 12-26-2023 Albumin DL <= 20 mg/L (U) [Mass/Vol] 5.8 mg/dL High 0.0-1.9 [facility] Comment on above: Performed By: #### 1 [id number], 24562087 ####[facility] [address] [place] [address] U Protein/Creat Ratioon 12-07 Protein/Creatinine (U) [Ratio] 20.90 mg/gm Cr Normal .00-200.00 [facility] Comment on above: Performed By: #### 1 [id number], 03233336 ####[facility] [address] [place] [address] U Creatinine 99.4 mg/dL Invalid Interpretation Code [facility] Comment on above: Performed By: #### 1 [id number], 55710988 ####[facility] [address] [place] [address] Ur Total Protein 20.8 mg/dL Invalid Interpretation Code [facility] Comment on above: Performed By: #### 1 839487038, 56498579 ####[facility] [address] [place] [address] Vit B12on 12-26-2023 Cobalamin (Vitamin B12) [Mass/Vol] 348 pg/mL Normal 50-1500 [facility] Comment on above: Performed By: #### 2 501544, 5773036, 51264612, 2130904 ####[facility] [address] [place] [address] eGFRon 12-26-2023 eGFR 57 mL/min/1.73 m2 Low >=59 [facility] Comment on above: Order Comment: Order added by Discern Expert. Performed By: #### 2 859552, 0523600, 74559880, 0344097 ####[facility] [address] [place] [address] Pre-Visit Planningon 024 Pre-Visit Planning - From: Ceci Yu To: Haider Hickman MD; Sent: 12/20/2023 09:56:36 EDT Subject: Pre-Visit Planning Due Date/Time: 12/20/2023 09:56:00 EDT Caller Name: DONG WHITMORE; Caller Number: H , B [phone] Pa Dr. Hickman. During a pre-visit planning chart [...] feel free to contact me at extension [phone]. Thank you! 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 Normal [address] [facility] Consultation Noteon 12-08-19 24 Consultation Note [id number]#1.0 0TIFF Normal [facility] RAD - MISCon 11-14-2023 RAD - MISC [id number] 20 [id number]#1.0 0TIFF Normal [facility] RAD - Ultrasound Reporton RAD - Ultrasound Report [id number]#1.0 0TIFF Normal [facility] RAD - Ultrasound Report [id number]#1.0 0TIFF Normal [facility] RAD - MISCon 10-30-2023 RAD - MISC [id number] 06 [id number]#1.00 TIFF Normal [facility] RAD - MRI Reporton RAD - MRI Report [id number]#1.00 TIFF Normal [facility] Screenson 10-20-2023 Screens [id number]#1. 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 Your Care Team Attending Physician - LATRICIA SCHUSTER, Araceli Treadwell Primary Care Physician - Haider Hickman MD [...] EDT With: Kristofer SCHUSTER, Haider Bee Where: [facility] Invalid Interpretation Code [address] [place] [address]- \.br \ Monday 10:30 AM EST \.br\ With: Araceli BERMUDEZ MD\.br\ Where: [facility] Patient Educationon 10-18-19 Patient Education Nephrology [...] ? 8 oz (237 mL) of milk, zgyqroz-twywzwbapbhl-j airy milk, and calcium-fortifiedfruit juice. Calcium-fortified means [...] Spinach (cooked), rhubarb, beets, sweet potatoes, and Turkmen chard. ? Peanuts. ? Potato chips, kuwaiti fries, and baked potatoes with skin on. ? Nuts and nut products. ? Chocolate. ? If you regularly take a diuretic medicine, make sure to eat at least 1 or 2 servings of fruits or vegetables that are high in potassium each day. These include: ? Avocado. ? Banana. ? Tollhouse, prune, carrot, or tomato juice. ? Baked [...] fish oil, or vitamin B6. ? Take vimg-ifc-mgrvvrj and prescription medicines only as told by your health care provider. These include supplements. What foods sh (more content not included)... [facility] Reminderson 10-18-2023 Reminders - From: Roya Álvarez To: PREM Bermudez; Sent: 10/18/2023 15:39:39 EST Show up: 08/18/2024 15:39:00 EST Subject: Renal US Due Date/Time: 09/17/2024 15:39:00 EST Pt needs scheduled for TERRIE prior to 1 year appointment. Being done at [facility]. order placed. Normal [facility] Urology Office/Clinic Noteon 10-18-2023 Urology Office/Clinic Note [...] with voice recognition artificial intelligence software, specifically [employer], [employer] and or [employer]. Substitutions may have occurred due to the [...] MD, URL [address] [place] [id number] Additional Instructions: 1 year w/ renal US [...] benign pr (more content not included)... Normal [facility] Comment on above: Result Comment: Elec tronically [...] recent A1c level, as measured by his brusher hand, was 6.9%. Review of Systems PHQ [...] with voice recognition artificial intelligence software, specifically Jumia, [employer] and or Pied Piper. Substitutions may have occurred due to the inherent limitations of voice recognition and artificial intelligence software. ATTESTATION: Documentation services were performed after patient or guardian consented to allow [employer] to record this visit. HEMANTH energy specialist and provider reviewed before signing. HEMANTH: [...] under fluo (more content not included)... Normal [facility] Comment on above: Result Comment: Elec tronically [...] SCHUSTER, Araceli Treadwell Where: [facility] Invalid Interpretation Code [address] [place] [address]- \.br \ Monday 9:30 AM EDT \.br\ With:\.br\ Where: [facility] Consultation Noteon 09-18-20 23 Consultation Note [id number]#1.0 0TIFF Normal [facility] A1C with Estimated Average G [facility] 09-11-2023 HbA1c (Bld) [Mass fraction] 6.900 % High 4.3-5.6 % [facility] [employer] Other HbA1c (Bld) [Mass fraction] 151 mg/dL [facility] [employer] Other Glucose [Mass/Vol] 151 mg/dL Normal [facility] Comment on above: Order Comment: Reaso n for Exam 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 Performed By: #### A 1C [facility] #### [address] HbA1c (Bld) [Mass fraction] 6.9 % High 4.3-5.6 [facility] Comment on above: Order Comment: Reaso n for Exam Type 2 diabetes mellitus with diabetic chronic kidney diseas Result Comment: Incr eased risk for diabetes: 5.7 - 6.4 diabetes: >6.4 glycemic control for adults with diabetes: <7.0 Performed By: #### A 1C [facility] #### [address] Glucose - FINGER STICKon Glucose [Mass/Vol] 138 mg/dL [employer] Other Glucose mean value [Mass/vol ume] in Blood Estimated from glycated hemoglobinOrdered By: Aldo Middleton on 09-11-2023 Average glucose Estimated from glycated hemoglobin (Bld) [Mass/Vol] 151 mg/dL [facility] Hemoglobin A1c percentageOrd ered By: Aldo Middleton on 09-11-2023 HbA1c (Bld) [Mass fraction] 6.9 % 4.3-5.6 [facility] Comment on above: Increased risk for d iabetes: 5.7 - 6.4diabetes: >6.4glycemic control for adults with diabetes: <7.0 Consultation Noteon 09-06-20 Consultation Note [id number]#1.00 TIFF Normal [facility] Consultation Noteon 08-28-20 Consultation Note [id number]#1.00 TIFF Normal [facility] US UNI ankle/arm indiceson 1 10-24-2022 US UNI ankle/arm indices [facility] Main [place] [address] [place], [place] [address] Ultrasound Report Signed Patient: Dong Whitmore MR#: [id number] : 1950 Acct:[id number] Age/Sex: 73 / M ADM Date: 08/24/23 Loc: [facility] Room: Type: [facility] Attending Dr: Eligio Soni MD Ordering [...] Eligio Soni MD08/24/2023 3:31 PM Dictation Location: [place] [address] Tech: Britney Sotelo Transcribed By: CIRO 08/24/23 1531 Dictated By: Eligio Soni MD 08/24/23 1530 Signed By: 08/24/23 1531 [facility] US venous duplex LE RTon US venous duplex LE RT [facility] [place] [address] Ultrasound Report Signed Patient: Dong Whitmore MR#: [id number] : 1950 Acct:[id number] Age/Sex: 73 / M ADM Date: 08/24/23 Loc: [facility] Room: Type: [facility] Attending Dr: Eligio Soni MD Ordering [...] Eligio Soni MD08/24/2023 3:31 PM Dictation Location: [place] [address] Tech: Coby Gibson Transcribed By: [facility] 08/24/23 153 Dictated By: Eligio Soni MD 08/24/23 153 Signed By: 08/24/23 153 [facility] Ambulatory Visit Summaryon 1 10-21-2022 [...] EST With: Kristofer SCHUSTER, Haider Bee Where: [facility] Invalid Interpretation Code [address] [place] [address]- \.br \ Monday 9:30 AM EDT \.br\ With:\.br\ Where: [facility] Family Medicine Office/Clini c Noteon 08-21-2023 [...] kidney d (more content not included)... Normal [facility] Comment on above: Result Comment: Elec tronically [...] oz glass (more content not included)... Normal [facility] Pre-Visit Planningon 023 Pre-Visit Planning - From: Ceci Yu To: Haider Hickman MD; Sent: 08/17/2023 10:44:28 EST Subject: Pre-Visit Planning Due Date/Time: 08/17/2023 10:44:00 EST Caller Name: DONG WHITMORE; Caller Number: H , B [phone] Hi Dr. Hickman. During a pre-visit planning [...] feel free to contact me at extension [phone]. Thank you! Ceci Yu LPN Invalid Interpretation Code [address] [facility] Consultation Noteon 08-10-20 Consultation Note [id number]#1.0 0TIFF Normal [facility] Family Medicine Office/Clini c Noteon 07-26-2023 Family [...] continue to monitor along. Ordered: A1c POC 72186 Body Mass Index (BMI) documented 3008F Current [...] disease) - As above Ordered: A1c POC 36017 Body Mass Index (BMI) documented 3008F Current [...] stage 3a) - Stable Ordered: A1c POC 43194 Body Mass Index (BMI) documented 3008F Current [...] - No new issues Ordered: A1c POC 89842 Body Mass Index (BMI) documented 3008F Current [...] - BMI education given Ordered: A1c POC 55738 Body Mass Index (BMI) documented 3008F Current [...] last ye (more content not included)... Normal [facility] Comment on above: Result Comment: Elec tronically [...] numbers. This can be done either in [place]vian (U.S.) or metric measurements. Note that charts and online BMI calculators are available to help you find your BMI quickly and easily without having to do these calculations yourself. To calculate your BMI in [place]ian (U.S.) measurements: 1. Measure your weight in [...] for Disease Control and Prevention: www.cdc.gov ? [place] Heart Association: www.heart.org ? National Heart, Lung, and Blood [place]: www.nhlbi.nih.gov Summary ? Body mass index (BMI) is a number that is calculated from a person's weight and height. ? BMI may help estimate how much of a person's weight is composed of fat. BMI can help identify those who may be at higher risk for certain medical problems. ? BMI can be measured using Latvian measurements or metric measurements. ? BMI charts are used to identify whether you are underweight, normal weight, overweight, or obese. This information is not intended to replace advice given to you by your health care provider. Make sure you discuss any questions you have with your health care provider. Document Revised: 06/17/2020 Document Reviewed: 04/24/2020 [employer] Patient Education ? 2022 [place]. [facility] Physician Referralon 023 Physician Referral [id number]#1. 00TIFF [facility] Pre-Visit Planningon 023 Pre-Visit Planning - From: Ceci Yu To: Kristofer SCHUSTER, Haider Bee; Sent: 07/24/2023 15:20:33 EDT Subject: Pre-Visit Planning Due Date/Time: 07/24/2023 15:20:00 EDT Caller Name: DONG WHITMORE; Caller Number: H , B [phone] Pa Dr. Hickman. During a pre-visit planning chart [...] feel free to contact me at extension [phone]. Thank you! Ceci Yu LPN From: Kristofer SCHUSTER, Haider Bee To: Ceci Yu; Sent: 07/24/2023 16:58:10 EDT Subject: RE: Pre-Visit Planning Caller Name: DONG WHITMORE; Caller Number: H , B [phone] OK to add the first one. Thank you Normal [address] [place] [address] A1C HEMOGLOBINon 02-14-2023 HbA1c (Bld) [Mass fraction] 7.6 % [employer] Other Glucose - FINGER STICKon Glucose [Mass/Vol] 215 mg/dL [facility] Other HbA1c (Bld) [Mass fraction]o n 02-14-2023 A1C HEMOGLOBIN [facility] [employer] Other ECHOCARDIO M/2D COMPLETEon 0 12-30-2022 ECHOCARDIO M/2D COMPLETE Patient: DONG WHITMORE. Exam Date: 12/30/2022 : 1950 Gender:M Ordering : MARY [facility] Admission #: [id number] Family : Order #: [id number] CLICK HERE TO VIEW EXAM ECHOCARDIOGRAM REPORT [...] Thibodeaux M.D. on 12/30/2022 at 18:49 Normal [facility] STRESS/REST MULTIon 12-29 NM STRESS/REST MULTI Patient: DONG WHITMORE Exam Date: 12/29/2022 : 1950 Gender:M Ordering : MARY SantanaSuzie [facility] Admission #: [id number] Family : Order #: [id number] CLICK HERE TO VIEW EXAM RADIOLOGY REPORT [...] Morales M.D. on 12/30/2022 at 09:[address] [facility] US MAMI DOP LEG RTon 12-09-19 [...] by: MORGAN ROJO Date: 2022-12-08 16:[address] [facility] TSHon 11-25-2022 TSH 2.370 uIU/mL Normal 0.358-3.[address] [facility] Comment on above: Performed By: #### T SH #### [facility] [address] [place] [address] Dr. Eli Jarvis BNPon 11-08-2022 Natriuretic peptide B (Bld) [Mass/Vol] 122.0 pg/mL Normal <=900.0 [facility] Comment on above: Performed By: #### C MP, BNP #### [facility] [address] [place] [address] [address] Eli Jarvis CBC AUTO DIFFon 11-08-2022 BASO # 0.1 103/ul Normal 0.0-0.1 [facility] Comment on above: Performed By: #### C BC ####[facility] [address] [place] [address]DrSuzie Jarvis Basophils/100 WBC (Bld) 0.7 % Normal 0.2-2.0 [facility] Comment on above: Performed By: #### C BC ####[facility] [address] [place] [address]DrSuzie Jarvis EO # 0.2 103/ul Normal 0.0-0.7 [facility] Comment on above: Performed By: #### C BC ####[facility] [address] [place] [address]Dr. Eli Jarvis Eosinophils/100 WBC (Bld) 3.5 % Normal 0.9-7.0 [facility] Comment on above: Performed By: #### C BC ####[facility] [address] [place] [address]Dr. Eli Jarvis Erythrocyte distribution width (RBC) [Ratio] 13.8 % Normal 11.0-15.0 [facility] Comment on above: Performed By: #### C BC ####[facility] [address] [place], [place] [address]Dr. Eli Jarvis Hematocrit (Bld) [Volume fraction] 42.0 % Normal 42.0-54.0 [facility] Comment on above: Performed By: #### C BC ####[facility] [address] [place], [place] [address]Dr. Eli Jarvis Hemoglobin (Bld) [Mass/Vol] 13.8 g/dL Critically low 14.0-18.0 [facility] Comment on above: Performed By: #### C BC ####[facility] [address] [place], [place] [address]Dr. Eli Jarvis IG # 0.03 10e3/ul Normal 0.00-0.03 [facility] Comment on above: Performed By: #### C BC ####[facility] [address] [place], [place] [address]Dr. Eli Jarvis IG % 0.4 % Normal 0.0-0.5 [facility] Comment on above: Performed By: #### C BC ####[facility] [address] [place], [place] [address]Dr. Eli Jarvis LYMPH # 1.3 103/ul Normal 1.2-3.8 [facility] Comment on above: Performed By: #### C BC ####[facility] [address] [place], [place] [address]Dr. Eli Jarvis Lymphocytes/100 WBC (Bld) 18.8 % Critically low 20.5-60.0 [facility] Comment on above: Performed By: #### C BC ####[facility] [address]jkejjq[address] [place], [place] [address]Dr. Eli Matheus MANUAL DIFF REQ NO Normal [facility] Comment on above: Performed By: #### C BC ####[facility] [address] [id number]. Eli Matheus MCH (RBC) [Entitic mass] 27.8 pg Normal 25.9-34.0 [facility] Comment on above: Performed By: #### C BC ####[facility] [address] [address]Dr. Eli Jarvis MCHC (RBC) [Mass/Vol] 32.9 g/dL Normal 29.9-35.2 [facility] Comment on above: Performed By: #### C BC ####[facility] N[address] [place], [place] [address]Dr. Eli Jarvis MCV (RBC) [Entitic vol] 84.7 fL Normal 80.0-94.0 [facility] Comment on above: Performed By: #### C BC ####[facility] Cf[address] [place], [place] [address]Dr. Eli Jarvis MONO # 0.6 103/ul Normal 0.3-0.8 [facility] Comment on above: Performed By: #### C BC ####[facility] [address] [place], [place] [address]Dr. Eli Jarvis Monocytes/100 WBC (Bld) 8.5 % Normal 1.7-12.0 [facility] Comment on above: Performed By: #### C BC ####[facility] [address] [place], [place] [address]Dr. Eli Jarvis NEUT # 4.7 103/ul Normal 1.4-6.5 [facility] Comment on above: Performed By: #### C BC ####[facility] P[address]pf[address] [place], [place] [address]DrSuzie Jarvis Neutrophils/100 WBC (Bld) 68.1 % Normal 43.0-75.0 [facility] Comment on above: Performed By: #### C BC ####[facility] Sc[address] [place], [place] [address]DrSuzie Jarvis Platelet mean volume (Bld) [Entitic vol] 10.3 fL Normal 9.5-13.5 [facility] Comment on above: Performed By: #### C BC ####[facility] [address] [place] [id number] Jarvis PLT 189 103/ul Normal 150-450 [facility] Comment on above: Performed By: #### C BC ####[facility] [address] [place] [id number] Jarvis RBC 4.96 106/ul Normal 4.70-6.10 [facility] Comment on above: Performed By: #### C BC ####[facility] [address]yn[address] [place] [id number] Jarvis WBC 7.0 103/ul Normal 4.0-11.0 [facility] Comment on above: Performed By: #### C BC ####[facility] R[address] [place] [id number]. Eli Jarvis PROF 14(COMP METB)on 023 Albumin [Mass/Vol] 3.6 g/dL Normal 3.4-5.0 [facility] Comment on above: Performed By: #### C MP, BNP #### [facility] [address] [address] [address] Eli Jarvis Albumin/Globulin [Mass ratio] 1.1 {ratio} Normal [facility] Comment on above: Performed By: #### C MP, BNP #### [facility] [address] [address] [address] Eli Jarvis ALP [Catalytic activity/Vol] 90 U/L Normal 46-116 [facility] Comment on above: Performed By: #### C MP, BNP #### [facility] [address] [address] [address] Eli Jarvis ALT [Catalytic activity/Vol] 42 U/L Normal 16-63 [facility] Comment on above: Performed By: #### C MP, BNP #### [facility] [address] [address] [address] Eli Jarvis Anion gap [Moles/Vol] 13.5 mmol/L Normal [facility] Comment on above: Performed By: #### C MP, BNP #### [facility] [address] [place] [address] Dr. Eli Jarvis AST [Catalytic activity/Vol] 26 U/L Normal 15-37 [facility] Comment on above: Performed By: #### C MP, BNP #### [facility] [address] [place] [address] Dr. Eli Jarvis Bilirubin [Mass/Vol] 0.4 mg/dL Normal 0.2-1.0 [facility] Comment on above: Performed By: #### C MP, BNP #### [facility] [address] [place] [address] Dr. Eli Jarvis Calcium [Mass/Vol] 9.3 mg/dL Normal 8.5-10.1 [facility] Comment on above: Performed By: #### C MP, BNP #### [facility] [address] [place] [address] Dr. Eli Jarvis Chloride [Moles/Vol] 104 mmol/L Normal 98-107 [facility] Comment on above: Performed By: #### C MP, BNP #### [facility] [address] [place] [address] Dr. Eli Jarvis CO2 [Moles/Vol] 25.7 mmol/L Normal 21.0-32.0 [facility] Comment on above: Performed By: #### C MP, BNP #### [facility] [address] [place] [address] Dr. Eli Jarvis Creatinine [Mass/Vol] 1.32 mg/dL Critically high 0.70-1.30 [facility] Comment on above: Performed By: #### C MP, BNP #### [facility] [address] [place] [address] Dr. Eli Jarvis EGFR-AF ANGUILLAN >60 Normal >=60 [facility] Comment on above: Performed By: #### C MP, BNP #### [facility] [address] [place] [address] Dr. Eli Jarvis EGFR-NON AF ANGUILLAN 53 mL/min/1.73m2 Critically low >=60 [facility] Comment on above: Performed By: #### C MP, BNP #### [facility] [address] [place] [address] Dr. Eli Jarvis Globulin (S) [Mass/Vol] 3.3 g/dL Normal [facility] Comment on above: Performed By: #### C MP, BNP #### [facility] [address] [place] [address] Dr. Eli Jarvis Glucose [Mass/Vol] 154 mg/dL Critically high 74-[address] [facility] Comment on above: Performed By: #### C MP, BNP #### [facility] [address] [place] [address] Dr. Eli Jarvis Potassium [Moles/Vol] 4.2 mmol/L Normal 3.5-5.1 [facility] Comment on above: Performed By: #### C MP, BNP #### [facility] [address] [place] [address] Dr. Eli Jarvis Protein [Mass/Vol] 6.9 g/dL Normal 6.4-8.2 [facility] Comment on above: Performed By: #### C MP, BNP #### [facility] [address] [place] [address] Dr. Eli Jarvis Sodium [Moles/Vol] 139 mmol/L Normal 136-145 [facility] Comment on above: Performed By: #### C MP, BNP #### [facility] [address] [place] [address] Dr. Eli Jarvis Urea nitrogen [Mass/Vol] 23.0 mg/dL Critically high 7.0-18.0 [facility] Comment on above: Performed By: #### C MP, BNP #### [facility] [address] [place] [address] Dr. Eli Jarvis Urea nitrogen/Creatinine [Mass ratio] 17.4 mg/mg Normal [facility] Comment on above: Performed By: #### C MP, BNP #### [facility] [address] [place] [address] Dr. Eli Jarvis A1C HEMOGLOBINon 11-07-2022 HbA1c (Bld) [Mass fraction] 7.6 % [employer] Other Glucose - FINGER STICKon Glucose [Mass/Vol] 172 mg/dL [employer] Other HbA1c (Bld) [Mass fraction]o n 11-07-2022 A1C HEMOGLOBIN [employer] Other US KIDNEYSon 2022 US KIDNEYS EXAMINATION: [...] by: MORGAN ROJO Date: 2022 18:[address] [facility] A1C HEMOGLOBINon 07-27-2022 HbA1c (Bld) [Mass fraction] 7.2 % [employer] Other Glucose - FINGER STICKon Glucose [Mass/Vol] 160 mg/dL [employer] Other HbA1c (Bld) [Mass fraction]o n 07-27-2022 A1C HEMOGLOBIN [employer] Other A1C HEMOGLOBINon 04-21-2022 HbA1c (Bld) [Mass fraction] 7.6 % [employer] Other Glucose - FINGER STICKon Glucose [Mass/Vol] 184 mg/dL [employer] Other HbA1c (Bld) [Mass fraction]o n 04-21-2022 A1C HEMOGLOBIN [employer] Other [employer] Creat Ratio,Uon Albumin DL <= 20 mg/L (U) [Mass/Vol] 10.2766038 mg/dL High 0.0-1.8 mg/dL [employer] Other Albumin/Creatinine DL <= 20 mg/L (U) [Mass ratio] 70.308764 mg/g High 0.0-30.0 mg/g [employer] Other Creatinine (U) [Mass/Vol] 417.1691428 mg/dL [employer] Other CBC AUTO DIFFon 04-07-2022 BASO # 0.0 103/ul Normal 0.0-0.1 [facility] Comment on above: Performed By: #### C BC #### [facility] [address] [place] [address] Dr. Eli Jarvis Basophils/100 WBC (Bld) 0.6 % Normal 0.2-2.0 [facility] Comment on above: Performed By: #### C BC #### [facility] [address] [place] [address] Dr. Eli Jarvis EO # 0.2 103/ul Normal 0.0-0.7 [facility] Comment on above: Performed By: #### C BC #### [facility] [address] [place] [address] Dr. Eli Jarvis Eosinophils/100 WBC (Bld) 2.9 % Normal 0.9-7.0 [facility] Comment on above: Performed By: #### C BC #### [facility] [address] [place] [address] Dr. Eli Jarvis Erythrocyte distribution width (RBC) [Ratio] 13.8 % Normal 11.0-15.0 [facility] Comment on above: Performed By: #### C BC #### [facility] [address] [place] [address] Dr. Eli Jarvis Hematocrit (Bld) [Volume fraction] 40.7 % Critically low 42.0-54.0 [facility] Comment on above: Performed By: #### C BC #### [facility] [address] [place] [address] Dr. Eli Jarvis Hemoglobin (Bld) [Mass/Vol] 13.3 g/dL Critically low 14.0-18.0 [facility] Comment on above: Performed By: #### C BC #### [facility] [address] [place] [address] Dr. Eli Jarvis IG # 0.04 10e3/ul Critically high 0.00-0.03 [facility] Comment on above: Performed By: #### C BC #### [facility] [address] [place] [address] Dr. Eli Jarvis IG % 0.6 % Critically high 0.0-0.5 [facility] Comment on above: Performed By: #### C BC #### [facility] [address] [place] [address] Dr. Eli Jarvis LYMPH # 1.3 103/ul Normal 1.2-3.8 [facility] Comment on above: Performed By: #### C BC #### [facility] [address] [place] [address] Dr. Eli Jarvis Lymphocytes/100 WBC (Bld) 18.7 % Critically low 20.5-60.0 [facility] Comment on above: Performed By: #### C BC #### [facility] [address] [place] [address] Dr. Eli Jarvis MANUAL DIFF REQ NO Normal [facility] Comment on above: Performed By: #### C BC #### [facility] [address] [place] [address] Dr. Eli Jarvis MCH (RBC) [Entitic mass] 28.1 pg Normal 25.9-34.0 [facility] Comment on above: Performed By: #### C BC #### [facility] [address] [place] [address] Dr. Eli Jarvis MCHC (RBC) [Mass/Vol] 32.7 g/dL Normal 29.9-35.2 [facility] Comment on above: Performed By: #### C BC #### [facility] [address] [place] [address] Dr. Eli Jarvis MCV (RBC) [Entitic vol] 86.0 fL Normal 80.0-94.0 [facility] Comment on above: Performed By: #### C BC #### [facility] [address] [place] [address] Dr. Eli Jarvis MONO # 0.4 103/ul Normal 0.3-0.8 [facility] Comment on above: Performed By: #### C BC #### [facility] [address] [place] [address] Dr. Eli Jarvis Monocytes/100 WBC (Bld) 6.2 % Normal 1.7-12.0 [facility] Comment on above: Performed By: #### C BC #### [facility] [address] [place] [address] Dr. Eli Jarvis NEUT # 4.9 103/ul Normal 1.4-6.5 [facility] Comment on above: Performed By: #### C BC #### [facility] [address] [place] [address] Dr. Eli Jarvis Neutrophils/100 WBC (Bld) 71.0 % Normal 43.0-75.0 [facility] Comment on above: Performed By: #### C BC #### [facility] [address] [place] [address] Dr. Eli Jarvis Platelet mean volume (Bld) [Entitic vol] 9.9 fL Normal 9.5-13.5 [facility] Comment on above: Performed By: #### C BC #### [facility] [address] [place] [address] Dr. Eli Jarvis PLT 184 103/ul Normal 150-450 [facility] Comment on above: Performed By: #### C BC #### [facility] [address] [place] [address] Dr. Eli Jarvis RBC 4.73 106/ul Normal 4.70-6.10 [facility] Comment on above: Performed By: #### C BC #### [facility] [address] [address] [address] Eli Jarvis WBC 6.9 103/ul Normal 4.0-11.0 [facility] Comment on above: Performed By: #### C BC #### [facility] [address] [address] [address] Eli Jarvis LIPID PROFILEon 04-07-2022 CHOL-HDL RATIO NORM SEE BELOW Normal [facility] Comment on above: Result Comment: 3.3 - 4.4 LOW RISK 4.4 - 7.1 AVERAGE RISK 7.1 - 11.0 MODERATE RISK >11.0 HIGH RISK Performed By: #### C MP, LIPID ####[facility] [address] [place] [id number]. Eli Jarvis Cholesterol [Mass/Vol] 127 mg/dL Normal <=200 [facility] Comment on above: Performed By: #### C MP, LIPID ####[facility] [address] [place] [id number]. Eli Jarvis Cholesterol in HDL [Mass/Vol] 36 mg/dL Critically low 40-60 [facility] Comment on above: Performed By: #### C MP, LIPID ####[facility] [address] [place] [id number]. Eli Jarvis Cholesterol in LDL [Mass/Vol] 58.4 mg/dL Normal [facility] Comment on above: Performed By: #### C MP, LIPID ####[facility] [address] [place] [id number]. Eli Jarvis Cholesterol.total/Ch olesterol in HDL [Mass ratio] 3.5 {ratio} Normal [facility] Comment on above: Performed By: #### C MP, LIPID ####[facility] [address] [place] [id number]. Eli Jarvis HDL NORMAL > or = 60 mg/dl - LO W CARDIOVASCULAR RISK <40 mg/dl - HIGH CARDIOVASCULAR RISK Normal [facility] Comment on above: Performed By: #### C MP, LIPID ####[facility] [address] [place] [address]Dr. Eli Jarvis LDL CALC NORMAL SEE BELOW Normal [facility] Comment on above: Result Comment: <100 mg/dl OPTIMAL 100 - 129 mg/dl NEAR OR ABOVE OPTIMAL 130 - 159 mg/dl BORDERLINE HIGH 160 - 189 mg/dl HIGH >190 mg/dl VERY HIGH Performed By: #### C MP, LIPID ####[facility] [address] [place] [address]Dr. Eli Jarvis Triglyceride [Mass/Vol] 163 mg/dL Critically high <=150 [facility] Comment on above: Performed By: #### C MP, LIPID ####[facility] [address] [place] [address]Dr. Eli Jarvis VLDL CALC 32.6 mg/dL Normal [facility] Comment on above: Performed By: #### C MP, LIPID ####[facility] [address] [place] [address]Dr. Eli Jarvis PROF 14(COMP METB)on 022 Albumin [Mass/Vol] 3.8 g/dL Normal 3.4-5.0 [facility] Comment on above: Performed By: #### C MP, LIPID ####[facility] [address] [place] [address]Dr. Eli Jarvis Albumin/Globulin [Mass ratio] 1.1 {ratio} Normal [facility] Comment on above: Performed By: #### C MP, LIPID ####[facility] [address] [place] [address]Dr. Eli Jarvis ALP [Catalytic activity/Vol] 89 U/L Normal 46-116 [facility] Comment on above: Performed By: #### C MP, LIPID ####[facility] [address] [place] [address]Dr. Eli Jarvis ALT [Catalytic activity/Vol] 43 U/L Normal 16-63 [facility] Comment on above: Performed By: #### C MP, LIPID ####[facility] [address] [place] [address]Dr. Eli Jarvis Anion gap [Moles/Vol] 10.7 mmol/L Normal [facility] Comment on above: Performed By: #### C MP, LIPID ####[facility] [address] [place] [address]Dr. Eli Jarvis AST [Catalytic activity/Vol] 24 U/L Normal 15-37 [facility] Comment on above: Performed By: #### C MP, LIPID ####[facility] [address] [place], [place] [address]Dr. Eli Matheus Bilirubin [Mass/Vol] 0.2 mg/dL Normal 0.2-1.0 [facility] Comment on above: Performed By: #### C MP, LIPID ####[facility] [address] [place], [place] [address]Dr. Eli Matheus Calcium [Mass/Vol] 9.1 mg/dL Normal 8.5-10.1 [facility] Comment on above: Performed By: #### C MP, LIPID ####[facility] [address] [place], [place] [address]Dr. Sparklealnie Jarvis Chloride [Moles/Vol] 104 mmol/L Normal 98-107 [facility] Comment on above: Performed By: #### C MP, LIPID ####[facility] [address] [place], [place] [address]Dr. Sparklealine Jarvis CO2 [Moles/Vol] 27.5 mmol/L Normal 21.0-32.0 [facility] Comment on above: Performed By: #### C MP, LIPID ####[facility] [address] [place], [place] [address]Dr. Sparklealine Jarvis Creatinine [Mass/Vol] 1.15 mg/dL Normal 0.70-1.30 [facility] Comment on above: Performed By: #### C MP, LIPID ####[facility] Mg[address]nuwfud[address] [place], [place] [address]Dr. Eli Jarvis EGFR-AF ANGUILLAN >60 Normal >=60 [facility] Comment on above: Performed By: #### C MP, LIPID ####[facility] [address] [place], [place] [address]Dr. Eli Jarvis EGFR-NON AF ANGUILLAN >60 Normal >=60 [facility] Comment on above: Performed By: #### C MP, LIPID ####[facility] [address] [place] [address]Dr. Eli Jarvis Globulin (S) [Mass/Vol] 3.4 g/dL Normal [facility] Comment on above: Performed By: #### C MP, LIPID ####[facility] [address]ines[address] [place] [address]Dr. Eli Jarvis Glucose [Mass/Vol] 157 mg/dL Critically high 74-[address] [facility] Comment on above: Performed By: #### C MP, LIPID ####[facility] [address] [place], [place] [address]Dr. Eli Jarvis Potassium [Moles/Vol] 4.2 mmol/L Normal 3.5-5.1 [facility] Comment on above: Performed By: #### C MP, LIPID ####[facility] [address] [place], [place] [address]Dr. Eli Jarvis Protein [Mass/Vol] 7.2 g/dL Normal 6.4-8.2 [facility] Comment on above: Performed By: #### C MP, LIPID ####[facility] [address]zed[address] [place], [place] [address]Dr. Eli Jarvis Sodium [Moles/Vol] 138 mmol/L Normal 136-145 [facility] Comment on above: Performed By: #### C MP, LIPID ####[facility] [address] [place] [address]Dr. Eli Jarvis Urea nitrogen [Mass/Vol] 26.0 mg/dL Critically high 7.0-18.0 [facility] Comment on above: Performed By: #### C MP, LIPID ####[facility] [address] [place], [place] [address]Dr. Eli Jarvis Urea nitrogen/Creatinine [Mass ratio] 22.6 mg/mg Normal [facility] Comment on above: Performed By: #### C MP, LIPID ####[facility] [address] [place], [place] [id number] Jarvis A1C HEMOGLOBINon 10-21-2021 HbA1c (Bld) [Mass fraction] 6.6 % [place] [employer] Other Glucose - FINGER STICKon Glucose [Mass/Vol] 169 mg/dL [place] [employer] Other HbA1c (Bld) [Mass fraction]o n 10-21-2021 A1C HEMOGLOBIN [facility] [employer] Other Comprehensive Metabolic Pane deann 07-29-2021 Albumin [Mass/Vol] 3.9 g/dL 3.2-5.5 [place] [employer] Other Albumin/Globulin [Mass ratio] 1.6 {ratio} [employer] Other ALP [Catalytic activity/Vol] 63 U/L 32-92 [employer] Other ALT [Catalytic activity/Vol] 32 U/L 10-60 [employer] Other AST [Catalytic activity/Vol] 32 U/L 10-42 [employer] Other Bilirubin [Mass/Vol] 0.5 mg/dL 0.3-1.2 [facility] [employer] Other Calcium [Mass/Vol] 9.7 mg/dL 8.2-10.2 [employer] Other Chloride [Moles/Vol] 105 mmol/L 95-114 [facility] [employer] Other CO2 [Moles/Vol] 22.7 mmol/L 22.0-30.0 [facility] [employer] Other Creatinine [Mass/Vol] 1.28 mg/dL 0.64-1.27 [employer] Other Glucose [Mass/Vol] 111 mg/dL 70-100 [employer] Other Potassium [Moles/Vol] 4.1 mmol/L 3.5-5.1 [employer] Other Protein [Mass/Vol] 6.3 g/dL 6.1-7.9 [employer] Other Sodium [Moles/Vol] 139 mmol/L 136-146 [employer] Other Urea nitrogen [Mass/Vol] 23 mg/dL 9-23 [employer] Other Comprehensive Metabolic Panel 55 [employer] Other Comprehensive Metabolic Panel > 60 [employer] Other Comprehensive Metabolic Panel 2.4 [employer] Other Hepatitis Acute Panelon 10-2 Hepatitis Acute Panel Negative Negative [employer] Other Hepatitis Acute Panel <0.1 0.0-0.9 [employer] Other Vital Signs Date Time Vital Sign Value Performing Clinician Facility 10-17-2024 10:14-0500 Body height 165.1 cm Bassam Aguilar DPM Work Phone: [facility] 10-17-2024 10:14-0500 Body mass index (BMI) [Ratio] 45.93 kg/m2 Bassam Aguilar DPM Work Phone: [facility] 10-17-2024 10:14-0500 Body weight 125.19 kg Bassam Aguilar DPM Work Phone: [facility] 10-17-2024 10:14-0500 Respiratory rate 16 /min Bassam Aguilar DPM Work Phone: [facility] 08-29-2024 09:27-0500 Body mass index (BMI) [Ratio] 45.93 kg/m2 Matthew May DO Work Phone: [facility] 08-29-2024 09:27-0500 Body weight 125.19 kg Matthew May DO Work Phone: [facility] 08-29-2024 09:27-0500 Diastolic blood pressure 76 mm[Hg] Jamisonopher Lalo DO Work Phone: [facility] 08-29-2024 09:27-0500 Heart rate 64 /min Christopher Lalo DO Work Phone: [facility] 08-29-2024 09:27-0500 SaO2% (BldA) [Mass fraction] 95 % Christalixer Lalo DO Work Phone: [facility] 08-29-2024 09:27-0500 Systolic blood pressure 134 mm[Hg] Jamisonopher Lalo DO Work Phone: [facility] 08-14-2024 09:59-0500 Body mass index (BMI) [Ratio] 40.46 kg/m2 Chiqui Robles MD Work Phone: [facility] 08-14-2024 09:59-0500 Body weight 117.2 kg Chiqui Robles MD Work Phone: [facility] 08-14-2024 09:59-0500 Diastolic blood pressure 69 mm[Hg] Chiqui Robles MD Work Phone: [facility] 08-14-2024 09:59-0500 Heart rate 59 /min Chiqui Robles MD Work Phone: [facility] 08-14-2024 09:59-0500 Respiratory rate 16 /min Chiqui Robles MD Work Phone: [facility] 08-14-2024 09:59-0500 SaO2% (BldA) [Mass fraction] 97 % Chiqui Robles MD Work Phone: [facility] 08-14-2024 09:59-0500 Systolic blood pressure 137 mm[Hg] Chiqui Robles MD Work Phone: [facility] 08-08-2024 09:32-0400 Body height 165.1 cm Bassam Aguilar DPM Work Phone: [facility] 08-08-2024 09:32-0400 Body mass index (BMI) [Ratio] 42.43 kg/m2 Bassam Aguilar DPM Work Phone: [facility] 08-08-2024 09:32-0400 Body weight 115.67 kg Bassam Aguilar DPM Work Phone: [facility] 08-08-2024 09:32-0400 Diastolic blood pressure 79 mm[Hg] Bassam Aguilar DPM Work Phone: [facility] 08-08-2024 09:32-0400 Heart rate 82 /min Bassam Aguilar DPM Work Phone: [facility] 08-08-2024 09:32-0400 Systolic blood pressure 128 mm[Hg] Bassam Aguilar DPM Work Phone: [facility] 08-06-2024 09:53-0400 Body height 165.1 cm Khai Heard DO Work Phone: [facility] 08-06-2024 09:53-0400 Body mass index (BMI) [Ratio] 42.43 kg/m2 Khai Heard DO Work Phone: [facility] 08-06-2024 09:53-0400 Body weight 115.67 kg Khai Heard DO Work Phone: [facility] 07-31-2024 10:20-0400 Body height 165.1 cm Shyam Cam DPM FAC[facility]AS Work Phone: [facility] 07-31-2024 10:20-0400 Body mass index (BMI) [Ratio] 42.43 kg/m2 Shyam Cam DPM FAC[facility]AS Work Phone: [facility] 07-31-2024 10:20-0400 Body weight 115.67 kg Shyam Dolce DPM FACFAS Work Phone: [facility] 07-31-2024 10:20-0400 Diastolic blood pressure 79 mm[Hg] Shyam Cam DPM FACFAS Work Phone: [facility] 07-31-2024 10:20-0400 Heart rate 68 /min Shyam Cam DPM FACFAS Work Phone: [facility] 07-31-2024 10:20-0400 Systolic blood pressure 128 mm[Hg] Shyam Dolestefani DPM FACFAS Work Phone: [facility] 07-24-2024 10:12-0400 Body height 165.1 cm Shyam Higginsce DPM FACFAS Work Phone: [facility] 07-24-2024 10:12-0400 Body mass index (BMI) [Ratio] 42.43 kg/m2 Shyam Higginsce DPM FACFAS Work Phone: [facility] 07-24-2024 10:12-0400 Body weight 115.67 kg Shyam Dolce DPM FACFAS Work Phone: [facility] 07-24-2024 10:12-0400 Diastolic blood pressure 78 mm[Hg] Shyam Dolce DPM FACFAS Work Phone: [facility] 07-24-2024 10:12-0400 Heart rate 83 /min Shyam Cam DPM FAC[employer]AS Work Phone: [facility] 07-24-2024 10:12-0400 Systolic blood pressure 131 mm[Hg] Shyam Higginsce DPM FACFAS Work Phone: [facility] 07-23-2024 09:37-0400 Body height 165.1 cm Arlen [employer] Work Phone: [facility] 07-23-2024 09:37-0400 Body mass index (BMI) [Ratio] 42.43 kg/m2 Arlen Sanchez DO Work Phone: [facility] 07-23-2024 09:37-0400 Body weight 115.67 kg Arlen Sanchez DO Work Phone: [facility] 07-03-2024 10:07-0400 Body height 165.1 cm Shyam Cam DPM FACFAS Work Phone: [facility] 07-03-2024 10:07-0400 Body mass index (BMI) [Ratio] 42.43 kg/m2 Shyam Cam DPM FAC[employer]AS Work Phone: [facility] 07-03-2024 10:07-0400 Body weight 115.67 kg Shyam Dolce DPM FACFAS Work Phone: [facility] 07-03-2024 10:07-0400 Diastolic blood pressure 78 mm[Hg] Shyam Dolce DPM FAC[employer]AS Work Phone: [facility] 07-03-2024 10:07-0400 Heart rate 85 /min Shyam Dolce DPM FAC[employer]AS Work Phone: [facility] 07-03-2024 10:07-0400 Systolic blood pressure 132 mm[Hg] Shyam Dolce DPM FAC[facility]AS Work Phone: [facility] 06-25-2024 14:46-0400 Body height 165.1 cm Kajal Dolce DPM FAC[employer]AS Work Phone: [facility] 06-25-2024 14:46-0400 Body mass index (BMI) [Ratio] 42.43 kg/m2 Kajal Dolce DPM FACFAS Work Phone: [facility] 06-25-2024 14:46-0400 Body weight 115.67 kg Kajal Dolce DPM FAC[employer]AS Work Phone: [facility] 06-25-2024 14:46-0400 Diastolic blood pressure 75 mm[Hg] Kajal Dolce DPM FAC[employer]AS Work Phone: [facility] 06-25-2024 14:46-0400 Heart rate 72 /min Kajal Dolce DPM FAC[facility]AS Work Phone: [facility] 06-25-2024 14:46-0400 Systolic blood pressure 126 mm[Hg] Kajal Dolce DPM FACFAS Work Phone: [facility] 06-19-2024 08:52-0400 Body height 165.1 cm Shyam Dolce DPM FACFAS Work Phone: [facility] 06-19-2024 08:52-0400 Body mass index (BMI) [Ratio] 42.43 kg/m2 Shyam Dolce DPM FACFAS Work Phone: [facility] 06-19-2024 08:52-0400 Body weight 115.67 kg Shyam Cam DPM FAC[facility]AS Work Phone: [facility] 06-19-2024 08:52-0400 Diastolic blood pressure 77 mm[Hg] Shyam Cam DPM FAC[facility]AS Work Phone: [facility] 06-19-2024 08:52-0400 Heart rate 73 /min Shyam Cam DPM FAC[employer]AS Work Phone: [facility] 06-19-2024 08:52-0400 Systolic blood pressure 125 mm[Hg] Shyam Cam DPM FAC[employer]AS Work Phone: [facility] 06-18-2024 10:17-0400 Body height 165.1 cm Bassam Aguilar DPM Work Phone: [facility] 06-18-2024 10:17-0400 Body mass index (BMI) [Ratio] 42.43 kg/m2 Bassam Aguilar DPM Work Phone: [facility] 06-18-2024 10:17-0400 Body weight 115.67 kg Bassam Aguilar DPM Work Phone: [facility] 06-18-2024 10:17-0400 Diastolic blood pressure 75 mm[Hg] Bassam Aguilar DPM Work Phone: [facility] 06-18-2024 10:17-0400 Heart rate 83 /min Bassam Aguilar DPM Work Phone: [facility] 06-18-2024 10:17-0400 Systolic blood pressure 125 mm[Hg] Bassam Aguilar DPM Work Phone: [facility] 04-24-2024 08:50-0400 Body height 170.2 cm Chiqui Robles MD Work Phone: [facility] 04-24-2024 08:50-0400 Body mass index (BMI) [Ratio] 42.28 kg/m2 Chiqui Robles MD Work Phone: [facility] 04-24-2024 08:50-0400 Body weight 122.47 kg Chiqui Robles MD Work Phone: [facility] 04-24-2024 08:50-0400 Diastolic blood pressure 89 mm[Hg] Chiqui Robles MD Work Phone: [facility] 04-24-2024 08:50-0400 Heart rate 61 /min Chiqui Robles MD Work Phone: [facility] 04-24-2024 08:50-0400 SaO2% (BldA) [Mass fraction] 95 % Chiqui Robles MD Work Phone: [facility] 04-24-2024 08:50-0400 Systolic blood pressure 122 mm[Hg] Chiqui Robles MD Work Phone: [facility] 02-29-2024 13:41-0400 Body height 170.2 cm Herberth Araujo MD, PhD Work Phone: [facility] 02-29-2024 13:41-0400 Body mass index (BMI) [Ratio] 42.29 kg/m2 Herberth Araujo MD, PhD Work Phone: [facility] 02-29-2024 13:41-0400 Body temperature 97.39 [degF] Herberth Araujo MD, PhD Work Phone: [facility] 02-29-2024 13:41-0400 Body weight 122.47 kg Herberth Araujo MD, PhD Work Phone: [facility] 02-29-2024 13:41-0400 Diastolic blood pressure 73 mm[Hg] Herberth Araujo MD, PhD Work Phone: [facility] 02-29-2024 13:41-0400 Heart rate 62 /min Herberth Araujo MD, PhD Work Phone: [facility] 02-29-2024 13:41-0400 SaO2% (BldA) [Mass fraction] 94 % Herberth Araujo MD, PhD Work Phone: [facility] 02-29-2024 13:41-0400 Systolic blood pressure 138 mm[Hg] Herberth Araujo MD, PhD Work Phone: [facility] 02-05-2024 12:17-0400 Body weight 124.74 kg Francoise Singletary MD Work Phone: [facility] 02-05-2024 12:17-0400 Diastolic blood pressure 70 mm[Hg] Francoise Singletary MD Work Phone: [facility] 02-05-2024 12:17-0400 Heart rate 80 /min Francoise Singletary MD Work Phone: [facility] 02-05-2024 12:17-0400 Systolic blood pressure 131 mm[Hg] Francoise Singletary MD Work Phone: [facility] 09-11-2023 11:00-0500 Body height 167.64 cm Tondra Mapus Other [facility] 09-11-2023 11:00-0500 Body mass index (BMI) [Ratio] 44.91 kg/m2 Tondra Mapus Other [facility] [employer] Other 09-11-2023 11:00-0500 Body weight 126.24 kg Tondra Mapus Other [facility] [employer] Other 09-11-2023 11:00-0500 Body weight 126.23 kg MD Scarlet Johnson Work Phone: [facility] 09-11-2023 11:00-0500 Diastolic blood pressure 82 mm[Hg] Tondra Mapus Other [facility] 09-11-2023 11:00-0500 Respiratory rate 18 /min Tondra Mapus Other [employer] [facility] [employer] Other 09-11-2023 11:00-0500 SaO2% (BldA) [Mass fraction] 99 % Tondra Grantus Other [facility] [employer] Other 09-11-2023 11:00-0500 Systolic blood pressure 153 mm[Hg] Tona Mapus Other [facility] 08-24-2023 13:45-0500 Body height 167.64 cm Eligio Soni Other [facility] 08-24-2023 13:45-0500 Body mass index (BMI) [Ratio] 44.22 kg/m2 Eligio Soni Other [facility] [employer] Other 08-24-2023 13:45-0500 Body temperature 97.4 [degF] Eligio Soni Other [facility] [employer] Other 08-24-2023 13:45-0500 Body weight 124.29 kg Eligio Soni Other [facility] [employer] Other 08-24-2023 13:45-0500 Body weight 124.28 kg MD Scarlet Johnson Work Phone: [facility] 08-24-2023 13:45-0500 Diastolic blood pressure 60 mm[Hg] Eligio Soni Other [facility] 08-24-2023 13:45-0500 SaO2% (BldA) [Mass fraction] 97 % Eligio Soni Other [facility] [employer] Other 08-24-2023 13:45-0500 Systolic blood pressure 130 mm[Hg] Eligio Soni Other [facility] 03-07-2023 10:00-0400 Body height 167.64 cm Terry Kelley Other [facility] [employer] Other 03-07-2023 10:00-0400 Body mass index (BMI) [Ratio] 43.61 kg/m2 Terry Kelley Other [employer] Other 03-07-2023 10:00-0400 Body weight 122.56 kg Terry Kelley Other [employer] Other 03-07-2023 10:00-0400 Diastolic blood pressure 70 mm[Hg] Terry Kelley Other [employer] Other 03-07-2023 10:00-0400 Respiratory rate 20 /min Terry Kelley Other [employer] Other 03-07-2023 10:00-0400 SaO2% (BldA) [Mass fraction] 96 % Terry Kelley Other [employer] Other 03-07-2023 10:00-0400 Systolic blood pressure 134 mm[Hg] Terry Kelley Other [employer] Other 02-14-2023 09:45-0400 Body height 172.72 cm Ton Mapus Other [employer] Other 02-14-2023 09:45-0400 Body mass index (BMI) [Ratio] 41.32 kg/m2 Tondra Mapus Other [employer] Other 02-14-2023 09:45-0400 Body weight 123.29 kg Tondra Mapus Other [employer] Other 02-14-2023 09:45-0400 Diastolic blood pressure 82 mm[Hg] Tondra Mapus Other [employer] Other 02-14-2023 09:45-0400 Respiratory rate 18 /min Tondra Mapus Other [employer] Other 02-14-2023 09:45-0400 SaO2% (BldA) [Mass fraction] 97 % Tondra Mapus Other [employer] Other 02-14-2023 09:45-0400 Systolic blood pressure 157 mm[Hg] Tondra Mapus Other [employer] Other 01-20-2023 12:15-0400 Body height 172.72 cm Carito Fitt Other [employer] Other 01-20-2023 12:15-0400 Body mass index (BMI) [Ratio] 40.71 kg/m2 Carito Fitt Other [employer] Other 01-20-2023 12:15-0400 Body weight 121.47 kg Carito Fitt Other [employer] Other 01-05-2023 11:15-0400 Body height 172.72 cm Terry Kelley Other [employer] Other 01-05-2023 11:15-0400 Body mass index (BMI) [Ratio] 40.96 kg/m2 Terry Rigoberto Other [facility] Other 01-05-2023 11:15-0400 Body weight 122.2 kg Terrynikolai Sheaff Other [facility] Other 01-05-2023 11:15-0400 Diastolic blood pressure 73 mm[Hg] Terry Kelley Other [facility] Other 01-05-2023 11:15-0400 Respiratory rate 18 /min Terry Kimblediff Other [facility] Other 01-05-2023 11:15-0400 SaO2% (BldA) [Mass fraction] 98 % Terry Kimblediff Other [employer] Other 01-05-2023 11:15-0400 Systolic blood pressure 143 mm[Hg] Terry Kimblediff Other [employer] Other 11-24-2022 12:15-0500 Body height 172.72 cm Carito Fitt Other [employer] Other 11-24-2022 12:15-0500 Body mass index (BMI) [Ratio] 42.22 kg/m2 Carito Fitt Other [facility] Other 11-24-2022 12:15-0500 Body weight 125.96 kg Carito Fitt Other [facility] Other 11-18-2022 11:15-0500 Body height 172.72 cm Terry Kimblediff Other [employer] Other 11-18-2022 11:15-0500 Body mass index (BMI) [Ratio] 41.96 kg/m2 Terry Kimblediff Other [facility] Other 11-18-2022 11:15-0500 Body weight 125.19 kg Terry Kelley Other [employer] Other 11-18-2022 11:15-0500 Diastolic blood pressure 75 mm[Hg] Terry Kelley Other [facility] Other 11-18-2022 11:15-0500 Respiratory rate 18 /min Terry Kelley Other [facility] Other 11-18-2022 11:15-0500 SaO2% (BldA) [Mass fraction] 99 % Terry Kelley Other [facility] Other 11-18-2022 11:15-0500 Systolic blood pressure 148 mm[Hg] Terry Kelley Other [employer] Other 11-07-2022 10:15-0500 Body height 172.72 cm Tondra Mapus Other [facility] Other 11-07-2022 10:15-0500 Body mass index (BMI) [Ratio] 42.58 kg/m2 Tondra Mapus Other [facility] Other 11-07-2022 10:15-0500 Body weight 127.05 kg Tondra Mapus Other [facility] Other 11-07-2022 10:15-0500 Diastolic blood pressure 83 mm[Hg] Tondra Mapus Other [facility] Other 11-07-2022 10:15-0500 Respiratory rate 18 /min Tondra Mapus Other [facility] Other 11-07-2022 10:15-0500 SaO2% (BldA) [Mass fraction] 98 % Tondra Mapus Other [facility] Other 11-07-2022 10:15-0500 Systolic blood pressure 170 mm[Hg] Tondra Mapus Other [facility] Other 10-18-2022 15:00-0500 Body height 172.72 cm Carito Fitt Other [facility] Other 2022 16:15-0400 Body height 172.72 cm Carito Fitt Other [facility] Other 07-27-2022 12:00-0400 Body height 172.72 cm Tondra Mapus Other [facility] Other 07-27-2022 12:00-0400 Body mass index (BMI) [Ratio] 40.9 kg/m2 Tondra Mapus Other [facility] Other 07-27-2022 12:00-0400 Body weight 122.02 kg Tondra Mapus Other [facility] Other 07-27-2022 12:00-0400 Diastolic blood pressure 75 mm[Hg] Tondra Mapus Other [facility] Other 07-27-2022 12:00-0400 Respiratory rate 20 /min Tondra Mapus Other [facility] Other 07-27-2022 12:00-0400 SaO2% (BldA) [Mass fraction] 97 % Tondra Mapus Other [facility] Other 07-27-2022 12:00-0400 Systolic blood pressure 141 mm[Hg] Tondra Mapus Other [facility] Other 06-08-2022 10:45-0400 Body height 172.72 cm Carito West Other [facility] Other 04-21-2022 12:00-0400 Body height 172.72 cm Tondra Mapus Other [facility] Other 04-21-2022 12:00-0400 Body mass index (BMI) [Ratio] 39.67 kg/m2 Tondra Mapus Other [facility] Other 04-21-2022 12:00-0400 Body weight 118.34 kg Tondra Mapus Other [facility] Other 04-21-2022 12:00-0400 Diastolic blood pressure 74 mm[Hg] Tondra Mapus Other [facility] Other 04-21-2022 12:00-0400 Respiratory rate 20 /min Tondra Mapus Other [facility] Other 04-21-2022 12:00-0400 SaO2% (BldA) [Mass fraction] 97 % Tondra Mapus Other [facility] Other 04-21-2022 12:00-0400 Systolic blood pressure 143 mm[Hg] Tondra Mapus Other [facility] Other 10-21-2021 12:00-0500 Body height 172.72 cm Tondra Mapus Other [facility] Other 10-21-2021 12:00-0500 Body mass index (BMI) [Ratio] 40.14 kg/m2 Tondra Mapus Other [facility] Other 10-21-2021 12:00-0500 Body weight 119.75 kg Tondra Mapus Other [facility] Other 10-21-2021 12:00-0500 Diastolic blood pressure 78 mm[Hg] Tondra Mapus Other [facility] Other 10-21-2021 12:00-0500 Respiratory rate 20 /min Tondra Mapus Other [facility] Other 10-21-2021 12:00-0500 SaO2% (BldA) [Mass fraction] 97 % Tondra Mapus Other [facility] Other 10-21-2021 12:00-0500 Systolic blood pressure 147 mm[Hg] Tondra Mapus Other [facility] Other 07-21-2021 15:45-0400 Body height 172.72 cm Morgan Kunz Other [facility] Other 07-21-2021 15:45-0400 Body mass index (BMI) [Ratio] 38.77 kg/m2 Morgan Kunz Other [facility] Other 07-21-2021 15:45-0400 Body weight 115.67 kg Morgan Kunz Other [facility] Other 12-14-2017 15:17-0500 Body height 170.18 cm MD Scarlet Johnson Work Phone: [facility] Encounters Encounter Date Encounter Type Care Provider Facility Start: 11-06-2024 ambulatory Araceli BERMUDEZ Facility :[facility] Start: 11-04-2024 ambulatory MD Haider Hickman [facility] ity:[facility] Jessie Start: 10-24-2024 End: 10-24-2024 ambulatory MD Haider Hickman Facility:[facility] Jocelyn silva Start: 10-17-2024 End: 10-17-2024 Bamboo flowsheet Bassam Aguilar DPM Work Phone: [facility] Start: 10-17-2024 End: 10-17-2024 Bamboo flowsheet Bassam Aguilar DPM Work Phone: [facility] Start: 10-17-2024 End: 10-17-2024 Patient encounter procedure Bassam Aguilar DPM Work Phone: [facility] Comment on above: Diabetes mellitus du e to underlying condition with diabetic polyneuropathy, 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 longitudinal float operator insulin use ([facility]) (Primary Dx); Pain due to onychomycosis of toenails of both feet; Venous insufficiency Start: 10-17-2024 End: 10-17-2024 ambulatory BASSAM AGUILAR Not Available Start: 10-15-2024 End: 10-15-2024 ambulatory Haider Hickman Facility:[facility] Jocelyn silva Start: 09-09-2024 End: 09-09-2024 ambulatory Haider Hickman [facility] Start: 09-09-2024 End: 09-09-2024 ambulatory Miguelangel Mac MD Facility: [facility] Start: 09-02-2024 End: 09-02-2024 ambulatory Miguelangel Mac MD Facility:[facility] Start: 08-29-2024 End: 08-29-2024 Bamboo flowsheet Matthew [...] Start: 08-15-2024 End: 08-15-2024 ambulatory Haider Hickman Facility:[facility] Jocelyn silva Start: 08-14-2024 End: 08-14-2024 ambulatory HAIDER HICKMAN Facility:[facility] Start: 08-14-2024 End: 08-14-2024 Patient encounter procedure Chiqui Robles MD Work Phone: [facility] Comment on above: 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; Chronic toe pain, right foot; Class 3 severe obesity with serious comorbidity and body mass index (BMI) of 40.0 to 44.9 in adult, unspecified obesity type ([facility]) Start: 08-08-2024 End: 08-08-2024 Bamboo flowsheet Bassam [...] underlying condition with diabetic polyneuropathy, 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 longitudinal float operator insulin use (CMS/HCC); Pain due to onychomycosis of toenails of both feet Start: 08-08-2024 End: 08-08-2024 ambulatory BASSAM AGUILAR Not Available Start: 08-07-2024 End: 08-07-2024 ambulatory [facility] Start: 08-06-2024 End: 08-06-2024 Bamboo flowsheet [...] Start: 08-01-2024 End: 08-01-2024 ambulatory Haider Hickman Facility:[facility] Start: 07-31-2024 End: 07-31-2024 Bamboo flowsheet Shyam Georgiana Higginsce DPM [employer] Work Phone: [facility] [...] underlying condition with diabetic polyneuropathy, 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 longitudinal float operator insulin use ([facility]); Amputation of right great toe ([facility]) Start: 07-31-2024 End: 07-31-2024 ambulatory SHYAM CAM Not Available Start: 07-24-2024 End: 07-24-2024 Bamboo flowsheet Shyam D Dolce DPM [employer] Work Phone: [facility] Start: 07-24-2024 End: 07-24-2024 Bamboo flowsheet Shaym D Dolce DPM [employer] Work Phone: [facility] Start: 07-24-2024 End: 07-24-2024 Office outpatient visit 25 minutes Shyam D Dolce DPM [employer] Work Phone: [facility] Comment on above: 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); Diabetes 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, 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 longitudinal float operator insulin use ([facility]) Start: 07-24-2024 End: 07-24-2024 ambulatory SHYAM CAM Not Available Start: 07-23-2024 End: 07-23-2024 Bamboo flowsheet Arlen Sanchez DO Work Phone: [facility] Start: 07-23-2024 End: 07-23-2024 Bamboo flowsheet Arlen Sanchez DO Work Phone: [facility] Start: 07-23-2024 End: 07-23-2024 Office outpatient visit 25 minutes Arlen Sanchez DO Work Phone: [facility] Comment on above: Internal derangement of left shoulder (Primary Dx); Arthritis of left acromioclavicular joint; Complete tear of left rotator cuff, 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 traumatic; Left shoulder pain, unspecified chronicity Start: 07-23-2024 End: 07-23-2024 ambulatory ARLEN SANCHEZ Not Available Start: 07-19-2024 End: 07-22-2024 Refill Chiqui Robles MD Work Phone: [facility] Comment on above: Med Change Request Start: 07-19-2024 End: 07-19-2024 ambulatory ELAINE [facility] Start: 07-17-2024 End: 07-18-2024 ambulatory Araceli BERMUDEZ Facility:[facility] Comment on above: Medication Question Start: 07-04-2024 End: 07-08-2024 Telephone encounter Arlen Sanchez DO Work Phone: [facility] Comment on above: MRI Start: 07-03-2024 End: 07-03-2024 Bamboo flowsheet Shyam Cam DPM [employer] Work Phone: [facility] Start: 07-03-2024 End: 07-03-2024 Bamboo flowsheet Shyam Cam DPM [employer] Work Phone: [facility] Start: 07-03-2024 End: 07-03-2024 Office outpatient visit 15 minutes Shyam Cam DPM [employer] Work Phone: [facility] Comment on above: 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) Start: 07-03-2024 End: 07-03-2024 ambulatory SHYAM CAM Not Available Start: 07-01-2024 End: 07-01-2024 Bamboo flowsheet Chelle Brandon CLINICAL DATA COORDINATOR Work Phone: [facility] Start: 07-01-2024 End: 07-01-2024 Bamboo flowsheet Chelle Blank Apling CLINICAL DATA COORDINATOR Work Phone: [facility] Start: 07-01-2024 End: 07-01-2024 Office outpatient visit 15 minutes Chelle Brandon CLINICAL DATA COORDINATOR Work Phone: [facility] Comment on above: Left shoulder pain, unspecified chronicity (Primary Dx); Arthritis of left acromioclavicular joint; Glenohumeral arthritis, left; Impingement of left shoulder; Internal derangement of left shoulder Start: 07-01-2024 End: 07-01-2024 ambulatory CHELLE Blank APLING Not Available Start: 06-26-2024 End: 06-26-2024 ambulatory [facility] Start: 06-25-2024 End: 06-25-2024 ambulatory KAJAL R DOLCE Not Available Start: 06-25-2024 End: 06-25-2024 Office outpatient visit 15 minutes Kajal R Dolce DPM [employer] Work Phone: [facility] Comment on above: 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); Diabetes 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, 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 halfway insulin use ([facility]); Venous insufficiency; Non-pressure chronic ulcer of other part of right lower leg with fat layer exposed ([facility]) Start: 06-25-2024 End: 06-25-2024 Bamboo flowsheet Kajal R Dolce DPM [employer] Work Phone: [facility] Start: 06-25-2024 End: 06-25-2024 Bamboo flowsheet Kajal R Dolce DPM [employer] Work Phone: [facility] Start: 06-19-2024 End: 06-19-2024 Telephone encounter Shyam Georgiana Cam DPM [facility] Work Phone: [facility] Start: 06-19-2024 End: 06-19-2024 ambulatory Kajal R Dolce [place] Start: 06-19-2024 End: 06-19-2024 Office outpatient visit 25 minutes Shyam Georgiana Cam DPM [facility] Work Phone: [facility] Comment on above: Acquired deformity o f right toe Start: 06-19-2024 End: 06-19-2024 ambulatory SHYAM CAM Not Available Start: 06-18-2024 End: 06-18-2024 Bamboo [...] underlying condition with diabetic polyneuropathy, 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 longitudinal float operator insulin use (CMS/HCC); Amputation of right great toe (CMS/HCC) Start: 06-12-2024 End: 06-12-2024 Bamboo flowsheet Chelle Brandon NP Work Phone: [facility] Start: 06-12-2024 End: 06-12-2024 Bamboo flowsheet Chelle Brandon CLINICAL DATA COORDINATOR Work Phone: [facility] Start: 06-12-2024 End: 06-12-2024 ambulatory Kajal Cam [facility] Start: 06-12-2024 End: 06-12-2024 Office outpatient visit 25 minutes Chelle Brandon CLINICAL DATA COORDINATOR Work Phone: [facility] Comment on above: Left shoulder pain, unspecified chronicity (Primary Dx); Arthritis of left acromioclavicular joint; Glenohumeral arthritis, left; Impingement of left shoulder Start: 06-12-2024 End: 06-12-2024 ambulatory CHELLE Blank APLING Not Available Start: 06-07-2024 End: 06-07-2024 [facility] Britney Hyde PhD Work Phone: Pain Recovery Comment on above: Adjustment disorder with depressed mood (Primary Dx); Complex regional pain syndrome type II of right lower limb; Chronic toe pain, right foot Start: 06-05-2024 End: 06-05-2024 ambulatory Kajal Cam [place] Start: 06-03-2024 End: 06-03-2024 Telephone encounter Chelle Brandon CLINICAL DATA COORDINATOR Work Phone: [facility] ORTHOPAEDICS Start: 05-27-2024 End: 05-27-2024 ambulatory CHELLE Blank APLING Not Available Start: 05-23-2024 ambulatory Chiqui chapa MD Work Phone: Neurology Pain Comment on above: taking memantine HCL Start: 05-22-2024 End: 05-22-2024 ambulatory DAVID ACOSTA Facility:[facility] [place] [facility] Start: 05-13-2024 End: 05-13-2024 ambulatory Haider Hickman Facility:[facility] [place] [facility] Start: 05-09-2024 End: 05-09-2024 ambulatory BASSAM AGUILAR Not Available Start: 05-07-2024 ambulatory Morgan Trinidad Therapist Work Phone: Pain Recovery Comment on above: next step, resources Start: 05-07-2024 E-mail encounter fro m caregiver Morgan Trinidad Therapist Work Phone: Pain Recovery Start: 05-06-2024 End: 05-06-2024 [facility] Morgan Trinidad Therapist Work Phone: Pain Recovery Comment on above: Adjustment disorder with depressed mood (Primary Dx); Complex regional pain syndrome type II of right lower limb; Chronic toe pain, right foot Start: 04-24-2024 End: 04-24-2024 ambulatory HAIDER HICKMAN Facility:[facility] Start: 04-24-2024 End: 04-24-2024 Patient encounter procedure [...] End: 04-23-2024 ambulatory Haider Hickman Facility: [facility] [place] [facility] Start: 04-03-2024 End: 04-03-2024 ambulatory HERBERTH ARAUJO Facility:[facility] Start: 03-26-2024 End: 03-26-2024 ambulatory Haider Hickman Facility: [facility] [place] [facility] Start: 03-19-2024 Telephone encounter Herberth meyers MD, PhD Work Phone: Pain Management Comment on above: Nurse Triage Call Start: 03-08-2024 End: 03-08-2024 ambulatory Haider IssacSuzie Hickman [place] Start: 03-07-2024 End: 03-07-2024 ambulatory Haider Hickman Facility: [facility] [place] [facility] Start: 02-29-2024 End: 02-29-2024 ambulatory HERBERTH ARAUJO Facility:[facility] Start: 02-29-2024 End: 02-29-2024 Patient encounter procedure [...] Start: 02-05-2024 End: 02-05-2024 ambulatory FRANCOISE SINGLETARY Facility:[facility] Start: 02-05-2024 End: 02-05-2024 Patient encounter procedure Francoise Singletary MD Work Phone: Pain Management Comment on above: Chronic toe pain, ri ght foot (Primary Dx); Painful diabetic neuropathy (HCC); Class 3 severe obesity with serious comorbidity and body mass index (BMI) of 40.0 to 44.9 in adult, unspecified obesity type (HCC) Start: 01-24-2024 End: 01-24-2024 ambulatory Araceli BERMUDEZ [place] Start: 01-22-2024 End: 01-22-2024 ambulatory PATRICIA MCPHERSON Not Available Start: 01-04-2024 End: 01-04-2024 ambulatory Araceli BERMUDEZ [place] Start: 01-03-2024 End: 01-03-2024 ambulatory CHELLE BRANDON Not Available Start: 12-29-2023 End: 12-29-2023 ambulatory Araceli BERMUDEZ [place] Start: 12-26-2023 End: 12-26-2023 ambulatory Haider Hickman [facility] Start: 12-14-2023 End: 12-14-2023 ambulatory BASSAM AGUILAR Not Available Start: 12-04-2023 End: 12-04-2023 ambulatory Miguelangel Mac MD Facility:[facility] Start: 10-18-2023 End: 10-18-2023 ambulatory Araceli BERMUDEZ Facility:[facility] Start: 10-16-2023 End: 10-16-2023 ambulatory Miguelangel Mac MD Facility:[facility] [place] Start: 09-25-2023 End: 09-25-2023 ambulatory Miguelangel Mac MD Facility:[facility] [place] Start: 09-20-2023 End: 09-20-2023 ambulatory Haider Hickman Facility:[facility] Start: 09-12-2023 End: 09-12-2023 ambulatory Aldo Middleton [facility] Other Start: 09-12-2023 Telephone encounter Aldo Middleton [facility] Start: 09-11-2023 (DM) Diabetes Tondra Emi [facility] Start: 09-11-2023 End: 09-12-2023 ambulatory MD Scarlet Johnson Work Phone: [facility] Other Start: 09-11-2023 End: 09-11-2023 Discharged Recurring MD Scarlet Johnson Work Phone: [facility] Work Phone: Start: 09-11-2023 End: 09-11-2023 Patient encounter procedure MD Scarlet Johnson Work Phone: [facility] Work Phone: Start: 08-24-2023 End: 08-24-2023 Patient encounter procedure MD Scarlet Johnson Work Phone: [facility]Ultrasound [facility] Start: 08-24-2023 End: 08-24-2023 ambulatory MD Scarlet Johnson Work Phone: [facility] Work Phone: Start: 08-24-2023 Office outpatient ne w 60 minutes Eligio Soni [facility] Start: 08-24-2023 End: 08-24-2023 Patient encounter procedure MD Scarlet Johnson Work Phone: [facility] Work Phone: Start: 08-21-2023 End: 08-21-2023 ambulatory Haider Hickman Facility:[facility] [place] [facility] Start: 07-26-2023 End: 07-26-2023 ambulatory Haider Hickman Facility:[facility] [place] [facility] Start: 06-14-2023 End: 06-14-2023 ambulatory Tondra Mapus Other [facility] Other Start: 06-14-2023 Telephone encounter Tondra Mapus [facility] Start: 06-09-2023 End: 06-09-2023 ambulatory Carito West Other [facility] Other Start: 06-09-2023 Nursing evaluation o f patient and report [facility] Start: 06-09-2023 Registered Recurring MD Scarlet franks Work Phone: [facility] Work Phone: Start: 05-31-2023 End: 05-31-2023 ambulatory Tondra Mapus Other [facility] Other Start: 05-31-2023 Telephone encounter Tondra Mapus [facility] Start: 03-07-2023 Follow-up encounter Terry moreno [facility] Start: 03-07-2023 End: 03-08-2023 ambulatory Terry Kelley [place] [facility] Other Start: 02-17-2023 End: 02-17-[address] JOVITA WOODARD . Facility: Start: 02-14-2023 (DM) Diabetes Tondra Emi [facility] Start: 02-14-2023 End: 02-14-2023 ambulatory Tondra Mapus Other [facility] Other Start: 01-20-2023 ([facility] RD FU) [facility] F/ U Registerd Donations Attendant [facility] Start: 01-20-2023 End: 01-20-2023 ambulatory Carito [facility] Other [facility] Other Start: 01-05-2023 End: 01-05-2023 ambulatory Terry [place] Other [facility] Other Start: 01-05-2023 Follow-up encounter Terry moreno [...] ambulatory DR TERRY KELLEY Facility:[facility] Start: 11-24-2022 ([facility] WMNI) WMN Init ial Provider [facility] Start: 11-24-2022 End: 11-24-2022 ambulatory [facility] Other [facility] Other Start: 11-22-2022 End: 11-22-2022 ambulatory Tondra Mapus Other [facility] Other Start: 11-22-2022 Nursing evaluation o f patient and report Tondra Juanitaus [facility] Start: 11-18-2022 End: 11-18-2022 ambulatory Terry Kelley Other [facility] Other Start: 11-18-2022 Nutrition therapy Terry johnson [facility] Start: 11-08-2022 End: 11-09-[address] SCARLET JOHNSON . Facility:[facility] Start: 11-07-2022 (DM) Diabetes Tondra Emi [facility] Start: 11-07-2022 End: 11-07-2022 ambulatory Tondra Mapus Other [facility] Other Start: 10-18-2022 (RD) Secondary [employer] Principal [facility] Start: 10-18-2022 End: 10-18-2022 ambulatory Carito [facility] Other [facility] Other Start: 08-18-2022 End: 08-19-[address] BRITTNY MORALES Facility:[facility] Start: 2022 ([facility] DB FU) [facility] Diabetes F/U [facility] Start: 2022 End: 08-11-[address] ARACELI BERMUDEZ [place] [facility] Other Start: 07-29-2022 End: 07-30-[address] SCARLET JOHNSON . Facility: Start: 07-27-2022 (DM) Diabetes Tondra Juanitaus [facility] Start: 07-27-2022 End: 07-27-2022 ambulatory Tondra Mapus Other [facility] Other Start: 06-08-2022 (Donations Attendant) Donations Attendant [facility] Start: 06-08-2022 End: 06-08-2022 ambulatory Carito [place] Other [facility] Other Start: 04-21-2022 (DM) Diabetes Tondra Mapus [facility] Start: 04-21-2022 End: 04-21-2022 ambulatory Tondra Mapus Other [facility] Other Start: 04-21-2022 Telephone encounter Tondra Mapus [facility] Start: 04-07-2022 End: 04-08-[address] SCARLET JOHNSON . Facility:[facility] Start: 10-21-2021 (DM) Diabetes Tondra Mapus [facility] Start: 10-21-2021 End: 10-21-2021 ambulatory Tondra [facility] Other Start: 07-21-2021 Office outpatient ne w 45 minutes Morgan Kunz [facility] Procedures Date Procedure Procedure Detail Performing Clinician Start: 06-19-2024 Radex foot complete minimum 3 views Shyam Cam DPM [facility] Work Phone: Start: 06-12-2024 Arthrocentesis aspir &/inj major jt/bursa w/o us Chelle Brandon CLINICAL DATA COORDINATOR Work Phone: Start: 08-24-2023 Duplex scan of lower limb veins MD Scarlet Johnson Work Phone: Plan of Treatment Date Care Activity Detail Author Start: 07-23-2025 ambulatory Ambulatory Facility:[facility] Start: 05-15-2025 ambulatory Ambulatory Facility:[facility] Start: 01-21-2025 End: 01-21-2025 Patient encounter procedure 01/21/2025 3:10 PM EDT Office Visit [facility] [address] [place] [address] Patricia Mcpherson, PA [address] [place] [address] [facility] Start: 12-26-2024 End: 12-26-2024 Patient encounter procedure 12/26/2024 11:00 AM EDT Procedure Visit [facility] POD[facility]AT[facility] [address] [facility] [address] [place] [address] Bassam Aguilar DPM [address] [facility] [address] [place] [address] [facility] Start: 10-17-2024 End: 10-17-2024 Patient encounter procedure [facility] Comment on above: Diabetes mellitus du e to underlying condition with diabetic polyneuropathy, 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 longitudinal float operator insulin use ([facility]) (Primary Dx); Pain due to onychomycosis of toenails of both feet; Venous insufficiency Start: 08-29-2024 End: 08-29-2024 Patient encounter procedure 08/29/2024 9:30 AM EST Office Visit [facility] [address] [place] [address] Matthew May, [address] [place], [place] [id number] Arrived [facility] Comment on above: Arrived Start: 08-27-2024 End: 08-27-2024 Patient encounter procedure 08/27/2024 3:15 PM EST Office Visit [facility] [place] [address] [place] [address] Gallo Gayle, [address] [place], [place] [id number] [facility] [address] [address] Start: 08-14-2024 End: 08-14-2024 Patient encounter procedure 08/14/2024 10:00 AM EST Office Visit Neurology Pain [address] [place] [address] Chiqui Robles MD [address] [place], [place] [id number] 1 Month Follow Up Neurology Pain Comment on above: 1 Month Follow Up Start: 2024 RSV Vaccine (1 - 1-d ose 75+ series) RSV Vaccine (1 - 1-dose 75+ series) [facility] Start: 08-08-2024 End: 08-08-2024 Patient encounter procedure [facility] Comment on above: Diabetes mellitus du e to underlying condition with diabetic polyneuropathy, 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 halfway insulin use (CMS/[facility]) (Primary Dx); Pain due to onychomycosis of toenails of both feet; Amputation of toe of right foot (CMS/HCC) Start: 08-06-2024 End: 08-06-2024 Patient encounter procedure 08/06/2024 9:45 AM EDT Office Visit [facility] ORTHO [address] [place] [address] Khai Heard, DO [address] [facility] [place] [address] [facility] ORTH[facility] Start: 07-31-2024 End: 07-31-2024 [...] EDT Procedure Visit [facility] [address] [facility] [address] [place] [id number] Bassam Aguilar, DPSherrell [address] [facility] [address] [place] [address] [facility] Start: 07-09-2024 End: 07-09-2024 Patient encounter procedure 07/09/2024 9:45 AM EDT Office Visit [facility] ORTHOPA[facility] [address] [facility] [address] [place] [address] Arlen Sanchez DO 112 [facility] [address] [place] [address] [facility] Start: 07-03-2024 End: 07-03-2024 Professional / ancillary services management 07/03/2024 2:00 PM EDT Ancillary Procedure [facility] MR [address] [facility] [address] [place] [phone] [facility] MR Start: 07-03-2024 End: 07-03-2024 Patient encounter procedure [facility] NMA POD Comment on above: Arrived Start: 07-02-2024 End: 07-02-2024 Professional / ancillary services management 07/02/2024 10:15 AM EDT Ancillary Procedure [facility] MR [address] [facility] [address] [place] [id number] [facility] F[facility] MR Start: 07-01-2024 End: 07-01-2025 [...] EDT Office Visit [facility] NMA POD [address] [place] [address] Kajal Cam, DPM [facility] [address] [place] [address] [facility] NMA POD Start: 06-24-2024 End: 06-24-2024 Patient encounter procedure 06/24/2024 9:15 AM EDT Office Visit [facility] [address] [facility] [address] [place] [address] Chelle Brandon, CLINICAL DATA COORDINATOR [address] [facility] [address] [place] [address] [facility] Start: 06-20-2024 End: 06-20-2024 Patient encounter procedure 06/20/2024 12:20 PM EDT Procedure Visit [facility] EXT DEP Shyam Cam, DPM [facility] [address] [place] [address] [facility] EXT DEP Start: 06-19-2024 End: 06-19-2024 Patient encounter procedure 06/19/2024 8:30 AM EDT Office Visit [facility] NMA POD [address] [place] [id number] Shyam Cam, DPM [facility] [address] [place] [address] [facility]MA POD Start: 06-12-2024 End: 06-12-2024 Patient encounter procedure [facility] Comment on above: Left shoulder pain, unspecified chronicity (Primary Dx); Arthritis of left acromioclavicular joint; Glenohumeral arthritis, left Start: 06-09-2024 Covid-19 Vaccine ( season) Covid-19 Vaccine () [facility] Start: 06-09-2024 Influenza vaccination [facility] Start: 06-07-2024 End: 06-07-2024 ambulatory 06/07/2024 12:30 PM EDT [facility] [address] [place] [address] Britney Hyde, PhD [address] [place] [address] [facility] Comment on above: [facility] Start: 05-06-2024 End: 05-06-2024 ambulatory 05/06/2024 9:00 AM EDT [facility] [address] [place] [address] Morgan Trinidad, Therapist [address] [place] [address] PAIN PSYCH Pain Recovery Comment on above: PAIN PSYCH Start: 04-17-2024 End: 04-17-2024 Patient encounter procedure 04/17/2024 10:00 AM EDT Office Visit Pain Management [address] [place] [address] DiaanEufemia quinn PA-C [address] [place] [address] SUTURAL REMOVAL Pain Management Comment on above: SUTURAL REMOVAL Start: 04-03-2024 End: 04-03-2024 Admission to same day surgery center 04/03/2024 10:00 AM EDT - 04/03/2024 11:05 AM EDT Surgery Pain Management [address] [place] [address] Herberth Araujo MD, PhD [address] [place] [address] Right L4 and L5 DRG Trial Pain [...] 10:00 AM EDT Hospital Encounter Pain Management [address] [place] [address] Herberth Araujo MD, PhD [address] [place] [address] Chronic toe pain, right foot [M79.674, G89.29], Complex regional pain syndrome type II of right lower limb [G57.71] Pain Management Comment on above: Chronic toe pain, ri ght foot [M79.674, G89.29], Complex regional pain syndrome type II of right lower limb [G57.71] Start: 10-09-2023 Advance Directive Discussion Advance Directive Discussion [facility] Start: 10-09-2023 Behavioral Health Screening Behavioral Health Screening [facility] Start: 06-09-2023 Covid-19 Vaccine ( season) Covid-19 Vaccine () [facility] Start: 10-16-2019 Pneumococcal Vaccine : 65+ Years (2 of 2 - PCV) Pneumococcal Vaccine: 65+ Years (2 of 2 - PCV) [facility] Start: 2014 Pneumococcal Vaccine : 65+ (1 of 1 - PCV) Pneumococcal Vaccine: 65+ (1 of 1 - PCV) [facility] Start: 2009 RSV Vaccine (1 - 1-d ose 60+ series) RSV Vaccine (1 - 1-dose 60+ series) [facility] Start: 2009 RSV Vaccine (1 - Ris k 60-74 years 1-dose series) RSV Vaccine (1 - Risk 60-74 years 1-dose series) [facility] Start: 1999 Shingrix Vaccine (1 of 2) Rabago grix Vaccine (1 of 2) [facility] Start: 1994 Diabetes Screening Diabetes Screenin g [facility] Start: 1994 Screening for malign ant neoplasm of colon [facility] Start: 1984 Lipid panel Lipid Screening [facility] Start: 1968 Urine microalbumin profile DTa P,Tdap,Td Vaccine (1 - Tdap) [facility] Start: 1967 Annual PCP Team [place] Disease Visit Annual PCP Team Chronic Disease Visit [facility] Start: 1967 Anxiety Screening Anxiety Screening [facility] Start: 1967 Depression Screening Depression Scre ening [facility] Start: 1967 Hepatitis B surface antibody level LDL Cholesterol [facility] Start: 1967 Hepatitis C screening Hepatitis C Sc ang [facility] Start: 1959 Diabetic foot examination Diabetic F oot Exam [facility] Start: 1959 Glaucoma screening Dilated Retinal E xam [facility] Start: 1959 Hepatitis B screening Urine Albumin:Creatinine Ratio [facility] Start: 1955 Pneumococcal Vaccine : 65+ (1 of 2 - PCV) Pneumococcal Vaccine: 65+ (1 of 2 - PCV) [facility] Start: 1954 Hemoglobin A1c measurement HbA1C [facility] Start: 1949 Screening for malign ant neoplasm of colon [facility] Immunizations Immunization Date Immunization Notes Care Provider Margarita sunshine 07-31-2024 influenza virus vaccine, unspecified formulation Khai Heard DO Work Phone: [facility] 06-15-2023 influenza virus vaccine, unspecified formulation Chelle Brandon CLINICAL DATA COORDINATOR Work Phone: [facility] 12-30-2020 COVID-19 Vaccine Moderna - Documentation Purposes Only Morgan Kunz Other [facility] 12-02-2020 COVID-19 Vaccine Moderna - Documentation Purposes Only Morgan Kunz Other [facility] Payers Date Payer Category Payer Private Health Insurance [employer] Member Subscriber Plan / Payer (Effective 2021-Present) Name: Dong Whitmore Boom Relation to Subscriber: Self Name: Dong Whitmore Payer ID: Not on file Type: Not on file Address: [place] [id number] 2021 Unknown [id number] [id number]. [id number] 2017 Self-pay [id number] 2017 Unknown [id number] 2012 Medicare [id number]. 1.13.159.2. [id number] 2012 Medicare [id number] 1959 Medicare [id number] 2.16.840.1.789424.19 1959 Unknown [id number] 2.16.840.1.410855.19 1949 Unknown [id number] 2.16.840.1.479019.3.579.2. 593 1949 Unknown [id number] 2.16.840.1.734807.3.579.2. 593 1949 Unknown [id number] 2.16.840.1.590063.3.579.2. 593 1949 Unknown [id number] 2.16.840.1.626190.3.579.2. 593 1949 Unknown [id number] 2.16.840.1.324046.3.579.2. 593 1949 Unknown [id number] 2.16.840.1.012014.3.579.2. 593 1949 Unknown [id number] 2.16.840.1.508399.3.579.2. 593 1949 Unknown [id number] 2.16.840.1.563927.3.579.2. 593 1949 Unknown [id number] 2.16.840.1.614809.3.579.2. 593 1949 Unknown [id number] 2.16.840.1.428815.3.579.2. 593 1949 Unknown [id number] 2.16.840.1.138034.3.579.2. 593 1949 Unknown [id number] 2.16.840.1.269971.3.579.2. 593 1949 Unknown [id number] 2.16.840.1.267831.3.579.2. 727 1949 Unknown [id number] 2.16.840.1.403748.3.579.2. 727 1949 Unknown [id number] 2.16.840.1.326337.3.579.2. 727 1949 Unknown [id number] 2.16.840.1.146369.3.579.2. 727 1949 Unknown [id number] 2.16.840.1.258269.3.579.2. 727 1949 Unknown [id number] 2.16.840.1.898406.3.579.2. 727 1949 Unknown [id number] 2.16.840.1.829107.3.579.2. 1949 Unknown [id number] 2.16.840.1.179269.3.579.2. 72 1949 Unknown [id number] 2.16.840.1.429402.3.579.2. 1949 Unknown [id number] 2.16.840.1.947197.3.579.2. 1949 Unknown [id number] 2.16.840.1.512256.3.579.2. 1949 Unknown [id number] 2.16.840.1.333822.3.579.2. 1949 Unknown [id number] 2.16.840.1.484516.3.579.2. 1949 Unknown [id number] 2.16.840.1.437149.3.579.2. 1949 Unknown [id number] 2.16.840.1.520479.3.579.2. 1949 Unknown [id number] 2.16.840.1.738087.3.579.2. 1949 Unknown [id number] 2.16.840.1.805048.3.579.2. 1949 Unknown [id number] 2.16.840.1.693221.3.579.2. 1949 Unknown [id number] 2.16.840.1.240592.3.579.2. 1949 Unknown [id number] 2.16.840.1.255483.3.579.2. 1949 Unknown [id number] 2.16.840.1.861223.3.579.2. 1949 Unknown [id number] 2.16.840.1.415586.3.579.2. 1949 Unknown [id number] 2.16.840.1.678005.3.579.2 1949 Unknown [id number] 2.16.840.1.187799.3.579.2. 1949 Unknown [id number] 2.16.840.1.377274.3.579.2 1949 Unknown [id number] 2.16.840.1.257885.3.579.2 1949 Unknown [id number] 2.16.840.1.161870.3.579.2 1949 Unknown [id number] 2.16.840.1.819382.3.579.2 1949 Unknown [id number] 2.16.840.1.598549.3.579.2 1949 Unknown [id number] 2.16.840.1.782417.3.579.2 1949 Unknown [id number] 2.16.840.1.814959.3.579.2 1949 Unknown [id number] 2.16.840.1.065539.3.579.2. 1949 Unknown [id number] 2.16.840.1.380505.3.579.2. 1258 1949 Unknown [id number] 2.16.840.1.958769.3.579.2. 1258 1949 Unknown [id number] 2.16.840.1.624464.3.579.2. 1258 1949 Unknown [id number] 2.16.840.1.209430.3.579.2. 1258 1949 Unknown [id number] 2.16.840.1.237542.3.579.2. 1258 1949 Unknown [id number] 2.16.840.1.625254.3.579.2. 1258 1949 Unknown [id number] 2.16.840.1.353791.3.579.2. 1258 1949 Unknown [id number] 2.16.840.1.861941.3.579.2. 1258 1949 Unknown [id number] 2.16.840.1.559707.3.579.2. 1258 1949 Unknown [id number] 2.16.840.1.500444.3.579.2. 1258 1949 Unknown [id number] 2.16.840.1.797045.3.579.2. 1258 1949 Unknown [id number] 2.840.1.577897.3.579.2. 1258 1949 Unknown [id number] 2.840.1.414559.3.579.2. 1258 1949 Unknown [id number] 2.840.1.986296.3.579.2. 1258 1949 Unknown [id number] 2.840.1.994170.3.579.2. 1258 1949 Unknown [id number] 2.840.1.529280.3.579.2. 1258 1949 Unknown [id number] 2.16.840.1.966813.3.579.2. 1258 1949 Unknown [id number] 2.16.840.1.426474.3.579.2. 1258 1949 Unknown [id number] 2.16.840.1.078858.3.579.2. 1258 1949 Unknown [id number] 2.16840.1.105937.3.579.2. 1259 1949 Unknown [id number] 2.16.840.1.515452.3.579.2. 1259 1949 Unknown [id number] 2.16.840.1.449821.3.579.2. 727 1949 Unknown [id number] 2.16.840.1.775292.3.579.2. 727 1949 Unknown [id number] 2.16.840.1.184641.3.579.2. 727 Unknown Standard LIfe Ins [id number] Unknown [id number] 2.16.840.1.480182.3.579.2. 531 Unknown [id number] 2.16.840.1.990149.3.579.2. 531 Unknown [id number] 2.16.840.1.454140.3.579.2. 531 Social History Date Type Detail Facility Unknown if ever smoked [facility] Other Start: 02-05-2024 End: 08-29-2024 Sex Assigned At [facility] Start: 1950 Sex Assigned At Male [facility] Start: 07-09-2018 End: 05-18-2023 Tobacco smoking status [facility] Never smoked tobacco (finding) [facility] Tobacco smoking status [facility] Tobacco smoking consumption unknown [facility] Start: 02-05-2024 End: 08-29-2024 History of Social function [facility] National Score (1-100), lower number is lower risk 67 [facility] Start: 1950 Sex Assigned At Not on file [facility] Start: 05-18-2023 End: 02-29-2024 Tobacco use and exposure Smokeless tobacco non-user [facility] Start: 02-29-2024 End: 10-17-2024 Alcohol intake Ex-drinker (finding) [facility] NEGATED: Highlighted rowStart: NINF History of tobacco [...] 04-03-2024 Clinical Notes 07-21-2021 to 10-17-2024 Bassam Aguilar DPM - 10/17/2024 10:20 AM Jeni May DO - 08/29/2024 9:30 AM Chiqui Live MD - 08/14/2024 10:29 AM Claudia Burgos MD - 08/14/2024 9:55 AM EST Note [...] Partner Violence: Unknown (11/30/2023) [facility] [place] [facility] Fear of [...] underlying condition with diabetic polyneuropathy, 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 longitudinal float operator insulin use ([facility]) 2. Pain due to onychomycosis of toenails [...] Bassam Aguilar DPM documented in this encounter [facility] 08-29-2024 History of Present illness Narrative Images from the original note were not included. Chief complaint: Neuropathic pain Subjective Dong Nur Haim, 74 y.o., male Dong presents today for [...] believes a few years ago in the [place] office. Review of Systems Constitutional: Negative for [...] Diagnosis Date COVID-19 vaccine series completed Diabetes ([facility]/HCC) Hypercholesterolemia ([facility]/HCC) Hypertension ([facility]/HCC) PVD (peripheral vascular disease) ([facility]) Past Surgical History: Procedure Laterality Date CARDIAC [...] , wrist extensors , wrist flexor , assistant librarian strength 5/5. LUE Strength deltoid , biceps , triceps , wrist extensors , wrist flexor , assistant librarian strength 5/5. RLE Strength illopsoas, quadriceps, tibialis [...] reflex 0. Del Real's sign negative. Coordination: Olsyjf-jh-nkrp testing and rapid alternating movements are normal [...] is already established with pain management in [place] and suggest that they can see them [...] to ketamine infusions with pain management in [place]. I suggested, if epidural is not successful, that they consider follow up thereof. The patient can follow up with us on an as-needed basis. Thank you for consultation. Pt has been fully educated on their diagnosis, lab results, treatment options, follow up plan, return instructions, and discussion of mental health issues documented in this encounter [facility] 08-14-2024 Note HNO ID: [id number] Author: CHIQUI ROBLES MD Service: ? Author Type: Physician Type: Progress Notes Filed: 08/26/2024 16:34 Note Text: [facility] STAFF PHYSICIAN NOTE OF PERSONAL INVOLVEMENT [...] - psychotherapy was utilized during the visit. Odvc-ic-wivk time: 73006 (16-37 mins) actual time spend in psychotherapy 18 minutes Type of therapeutic intervention:Supportive Target symptoms: Pain coping skills and Acceptance and adapting Progress/Session notes:processing Interactive Complexity: None STAFF PHYSICIAN:: Chiqui Robles MD DATE of SERVICE: 08/14/2024 [facility] 08-14-2024 History of Present illness Narrative [facility] STAFF PHYSICIAN NOTE OF PERSONAL INVOLVEMENT IN [...] - psychotherapy was utilized during the visit. Bpzl-jn-oyco time: 75755 (16-37 mins) actual time spend in psychotherapy 18 minutes Type of therapeutic intervention:Supportive Target symptoms: Pain coping skills and Acceptance and adapting Progress/Session notes:processing Interactive Complexity: None STAFF PHYSICIAN:: Chiqui Robles MD DATE of SERVICE: 08/14/2024 [facility] [place] August 14, 2024 This is a face [...] 2024 10:37 AM documented in this encounter [facility] 08-14-2024 Note HNO ID: [id number] Author: CLAUDIA CHILEL MD Service: ? Author Type: Resident Type: Progress Notes Filed: 08/14/2024 10:51 Note Text: [facility] [place] August 14, 2024 This is a face [...] MD, AMANDA August 14, 2024 10:37 AM [facility] 08-08-2024 History of Present illness Narrative [...] Partner Violence: Unknown (11/30/2023) [facility] [place] [facility] Fear of [...] underlying condition with diabetic polyneuropathy, 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 longitudinal float operator insulin use ([facility]) 2. Pain due to onychomycosis of toenails of both feet 3. Amputation of toe of right foot ([facility]) PLAN Debride nails in length and thickness [...] Bassam Aguilar DPM documented in this encounter [facility] 08-07-2024 Note [facility] Note Reason for cardiology visit: Follow-up HPI: Dong Whitmore is a 73 y.o. male with prior history of CAD and previous PCI of left circumflex artery, and RCA MARGUERITE in 2013, hypertension, and hyperlipidemia He is here for [...] DM type 2 (diabetes mellitus, type 2) ([facility]), HLD (hyperlipidemia), HTN (hypertension), Neuropathy, and ULISES [...] DAY SUBCUTANEOUSLY DIRECTED, Disp: , Rfl: omega 4-zqr-xij-fish oil (Fish OiL) 1,200 (144-216) mg capsule, [...] branch block Echo 07/08/2024 at [facility] Echo 12/30/2022 Echo 11/15/2016 Nuclear stress test 12/29/2022 at [facility] EKG portion Assessment and Plan: Coronary artery disease, status post prior PTCA of the left circumflex artery and RCA in 2012 Last stress test 12/30/2022 which was negative for ischemia with normal ejection fraction He is on aspirin, metoprolol, and simvastatin. Clinically stable Severe LVH on recent echo probably due to uncontrolled hypertensi (more content not included)... [facility] 07-31-2024 History of Present illness Narrative [...] series completed Diabetes (CMS/HCC) Hypercholesterolemia (CMS/HCC) Hypertension ([facility]/HCC) PVD (peripheral vascular disease) ([facility]) Medications: Current Outpatient Medications: acarbose (Precose) 50 [...] < 3 seconds Digits 1-5 bilateral NEURO: [place] Crista 5.07 monofilament was intact B/L. Vibratory [...] underlying condition with diabetic polyneuropathy, 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 longitudinal float operator insulin use ([facility]) 3. Amputation of right great toe ([facility]) PLAN Patient had no improvement with diagnostic injection. I feel the this point the pain is not related to his toe but appears to be from his low back sciatic issue spoke with his primary care physician they plan to work him up for low back concerns AUGUSTIN Horn documented in this encounter [facility] 07-24-2024 History of Present illness Narrative [...] < 3 seconds Digits 1-5 bilateral NEURO: [place] Crista 5.07 monofilament was intact B/L. Vibratory [...] leg. AUGUSTIN Horn documented in this encounter [facility] 07-23-2024 History of Present illness Narrative Images from the original note were not included. HISTORY OF PRESENT ILLNESS: Dong Whitmore is an 73 y.o. @ male. Chief complaint LT shoulder pain LT Shoulder: here for MRI results [facility] 07/15/24 8 1/2 weeks ago pt fell, went to [facility] ER on 05/24/24 and had xrays [...] he does these. [place]: LT shoulder xrays [facility] 05/24/24, acetiminophen with codeine, ice, bengay, 06/12/24 subacromial depo medrol injection, MRI [facility] 07/15/24, doing pendulums. Pt is RT handed. [...] of the shoulder from the [facility] had revealed a full-thickness tear of the [...] Sanchez/darion Sanchez D.O. documented in this encounter [facility] 07-19-2024 Note Cardiovascular Medic ine [place] [facility] SUBJECTIVE No chief complaint on file. [...] Obesity Sleep apnea Type 2 diabetes mellitus ([facility]/HCC) Complex regional pain syndrome type II of right lower limb Coronary arteriosclerosis in [place] artery Current use of insulin ([facility]) Dietary counseling and surveillance Past Medical History: Diagnosis Date CAD (coronary artery disease) DM type 2 (diabetes mellitus, type 2) ([facility]) HLD (hyperlipidemia) HTN (hypertension) Neuropathy ULISES (obstructive [...] DAY SUBCUTANEOUSLY DIRECTED, Disp: , Rfl: omega 3-lhe-mcg-fish oil (Fish OiL) 1,200 (144-216) mg capsule, [...] Behavior: Behavior nor (more content not included)... [facility] 07-18-2024 Telephone encounter Note Patient told to schedule an appt to discuss in detail [facility] 07-18-2024 Miscellaneous Notes Patient told to schedule an appt to discuss in detail documented in this encounter [facility] 07-17-2024 Note Patient Education Nephrology Dietary Guidelines [...] ? 8 oz (237 mL) of milk, jsidsfr-zmlsjbxqeiar-yuoda milk, and calcium-fortifiedfruit juice. Calcium-fortified means that [...] Spinach (cooked), rhubarb, beets, sweet potatoes, and Turkmen chard. ? Peanuts. ? Potato chips, kuwaiti fries, and baked potatoes with skin on. ? Nuts and nut products. ? Chocolate. ? If you regularly take a diuretic medicine, make sure to eat at least 1 or 2 servings of fruits or vegetables that are high in potassium each day. These include: ? Avocado. ? Banana. ? [place]house, prune, carrot, or tomato juice. ? Baked [...] fish oil, or vitamin B6. ? Take foie-lsf-zqppnwm and prescription medicines only as told by your health care provider. These include suppleme (more content not included)... [facility] 07-04-2024 Telephone encounter Note Patient's called regarding MRI. Patient is now getting it done at [facility]. Patient's is requesting volume be sent to [facility] [place]. Please advise [phone]. [facility] 07-04-2024 Miscellaneous Notes Patient's called regarding MRI. Patient is now getting it done at [facility]. Patient's is requesting volume be sent to [facility] [place]. Please advise [phone]. documented in this encounter [facility] 07-03-2024 History of Present illness Narrative [...] < 3 seconds Digits 1-5 bilateral NEURO: [place] Crista 5.07 monofilament was intact B/L. Vibratory [...] reassess his pain level in 2 weeks Shyam Cam DPM FACFAS documented in this encounter [facility] 07-01-2024 History of Present illness Narrative Subjective Patient ID: Dong Whitmore is a 73 y.o. male. LT Shoulder Pt is RT handed. 3 weeks s/p subacromial depo medrol injection (06/12/24) with 0% improvement. States he is worse he ran into the corner of his TV about 1 week ago. 5 weeks and 5 days ago pt fell, went to [facility] ER on 05/24/24 and had xrays [...] he does these. [place]: LT shoulder xrays [facility] 05/24/24, acetiminophen with codeine, ice, bengay, 06/12/24 [...] f/u s/p MRI documented in this encounter [facility] 06-26-2024 Note Cardiovascular Medic [facility] SUBJECTIVE Chief Complaint Patient presents with [...] with lymphedema. He follows with endocrinology in [place]. He has MILLER - this is unchanged. [...] is currently at a weightloss program at [facility]. He is seeing the sorter upholstery parts. 01/23/2023 He is down about 10lbs since [...] Obesity Sleep apnea Type 2 diabetes mellitus ([facility]) Complex regional pain syndrome type II of right lower limb Coronary arteriosclerosis in [place] artery Current use of insulin ([facility]) Dietary counseling and surveillance Past Medical History: Diagnosis Date CAD (coronary artery disease) DM type 2 (diabetes mellitus, type 2) ([facility]) HLD (hyperlipidemia) HTN (hypertension) Neuropathy ULISES (obstructive [...] venlafaxine 37.5 mg (more content not included)... [facility] 06-26-2024 Note Patient here for 1 y ear follow up CAD, hypertension, and hyperlipidemia. Had lipid panel this past December. Had foot surgery last week. Denies chest pain, SOB, palpitations, and lightheadedness/syncope. 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 Review of Systems Cardiovascular: Positive for leg swelling (RLE). Musculoskeletal: Positive for joint pain. All other systems reviewed and are negative. [facility] 06-25-2024 History of Present illness Narrative [...] < 3 seconds Digits 1-5 bilateral NEURO: [place] Crista 5.07 monofilament was intact B/L. Vibratory [...] underlying condition with diabetic polyneuropathy, 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 halfway insulin use (CMS/HCC) 3. Venous insufficiency 4. [...] Howe. AUGUSTIN Sam documented in this encounter [facility] 06-19-2024 Miscellaneous Notes Sx rx documented in this encounter [facility] 06-19-2024 Telephone encounter Note Sx rx [facility] 06-19-2024 History of Present illness Narrative [...] Diagnosis Date COVID-19 vaccine series completed Diabetes ([facility]/HCC) Hypercholesterolemia ([facility]/HCC) Hypertension ([facility]) PVD (peripheral vascular disease) ([facility]) Medications: Current Outpatient Medications: acarbose (Precose) 50 [...] Partner Violence: Unknown (11/30/2023) [facility] [place] [facility] Fear of [...] procedure. AUGUSTIN Horn documented in this encounter [facility] 06-18-2024 History of Present illness Narrative [...] Diagnosis Date COVID-19 vaccine series completed Diabetes ([facility]/HCC) Hypercholesterolemia ([facility]/HCC) Hypertension ([facility]) PVD (peripheral vascular disease) ([facility]) Medications: Current Outpatient Medications: acarbose (Precose) 50 [...] Partner Violence: Unknown (11/30/2023) [facility] [place] [facility] Fear of [...] underlying condition with diabetic polyneuropathy, 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 longitudinal float operator insulin use ([facility]) 3. Amputation of right great toe ([facility]) PLAN Have discussed and patient the past [...] Patient may continue with conservative treatments including ioun-sgv-whnlwtl anti-inflammatories and other treatments suggested today. Patient may want to be scheduled for surgical intervention in the near future. DIPJ amputation of the right 3rd digit under local anesthetic and patient to have done in the near future by either myself or . Bassam Aguilar DPM documented in this encounter [facility] 06-12-2024 History of Present illness Narrative Associated Order(s): L Inj/Asp: L subacromial bursa Post-Procedure Diagnose(s): Impingement of left shoulder Subjective Patient ID: Dong Whitmore is a 73 y.o. male. LT Shoulder Pt is RT handed. States he is better but his shoulder still hurts a lot 2 weeks 5 days ago pt fell, went to [facility] ER on 05/24/24 and had xrays [...] doing pendulum exercises [place]: LT shoulder xrays [facility] 05/24/24, acetiminophen with codeine, ice, bengay Objective [...] in 2 weeks. documented in this encounter [facility] 06-07-2024 Note HNO ID: [id number] Author: BRITNEY HYDE, PhD Service: ? Author Type: Psychologist Type: Progress Notes Filed: 06/07/2024 14:24 Note Text: [facility] Behavioral Medicine Group Session I have communicated my name and active licensure. The patient's identity and physical location were verified at the time of this visit. Either the patient or their legal sales representative printing has been informed of the risks and [...] copy of the consent form on [facility]. The patient consented to a virtual visit and their location was confirmed. Patient location: [facility] confirmed Patient Name: Dong Whitmore CC#: [id number] Date of service: June 07, 2024 Subjective: [...] additional pain management education Britney Hyde, PhD [phone] [facility] 06-07-2024 History of Present illness Narrative [facility] Session I have communicated my name and active licensure. The patient's identity and physical location were verified at the time of this visit. Either the patient or their legal sales representative printing has been informed of the risks and [...] a copy of the consent form on [employer]. The patient consented to a virtual visit and their location was confirmed. Patient location: [facility] confirmed Patient Name: Dong Whitmore CC#: [id number] Date of service: June 07, 2024 Subjective: [...] additional pain management education Britney Hyde, PhD [phone] documented in this encounter [facility] 06-03-2024 Telephone encounter Note Patient called wanted to know if he is able to make an appointment. Says his shoulder is hurting worse and the site of the RT LT shoulder is turning yellow. Appointment? [facility] 06-03-2024 Miscellaneous Notes Patient called wanted to know if he is able to make an appointment. Says his shoulder is hurting worse and the site of the RT LT shoulder is turning yellow. Appointment? documented in this encounter [facility] 05-23-2024 Note Patient Education Infectious Disease [...] these instructions at home: Medicines ? Take lnpg-sis-sareyru and prescription medicines only as told by [...] provider. Document Revised: 07/07/2022 Document Reviewed: 07/07/2022 [employer] Patient Education ? 2022 [employer] [facility] 05-13-2024 Note Patient Education Endocrinology Correction Insulin [...] changing your diet, or holidays. ? New bzcy-kwe-xhflyqt or prescription medicines. ? Illness, stress, or [...] sure you disc (more content not included)... [facility] 05-06-2024 Note HNO ID: [id number] Author: MORGAN TRINIDAD, Therapist Service: ? Author Type: Therapist Type: Progress Notes Filed: 05/07/2024 08:20 Note Text: [facility] Psychological Evaluation May 06, 2024 Dong Whitmore [facility]#: [id number] I have communicated my name and active licensure. The patient's identity and physical location were verified at the time of this visit. Either the patient or their legal sales representative printing has been informed of the risks and benefits of -- and alternatives to -- treatment through virtual visit and consents to proceed with the session remotely. The patient e-signed the Informed Consent for Psychological Evaluation AND Care Form, and the [facility] care insurance benefits, fees for service, emergency procedures, and the limits of confidentiality that may pertain with any given case were discussed with the patient. The patient was given a copy of the consent form on [facility]. The patient consented to a virtual visit and their location was confirmed. Patient location: [place], [place] CPT Code: [id number] Virtual Psych Diagnotic Eval Appointment Start: 9 AM This 73 year old retired for 15 years (he was having some medical problems, but they offered an early long-term package that was attractive at the time) male lives with his in [place], [place]. 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 He was referred by Chiqui Robles MD for psychological evaluation in the context of chronic pain. This consultation was shared with the referral source via the [facility] electronic medical record. He believes the reason [...] needed. pioglitazone (ACT (more content not included)... [facility] 04-24-2024 Note HNO ID: [id number] Author: CHIQUI ROBLES MD Service: ? Author Type: Physician Type: Progress Notes Filed: 04/24/2024 11:26 Note Text: [facility] STAFF PHYSICIAN NOTE OF PERSONAL INVOLVEMENT IN CARE IMPRESSION: Complex regional pain syndrome Adjustment Disorder Tried multiple injections, procedures, surgeries. No benefit Tried SCS and recently DRG without success. Discussed ketamine PLAN: Ketamine infusions Consider scrambler therapy Psych psychology Memantine 5mg Psychotherapy Add-on Progress Note Due to medical condition and comorbid psychological and behavioral concerns - psychotherapy was utilized during the visit. Yvjn-bw-huhu time: 54864 (16-37 mins) actual time spend in psychotherapy [...] which included preparing to see the patient, dpfv-sl-huxf patient care, completing clinical documentation, performing a medically appropriate examination, and counseling and educating the patient/family/caregiver. As noted, the patient's clinical situation is complex and serious with significant comorbidity of pain and functional limitations. This requires higher levels of time, intensity, and expense with longitudinal care and support. STAFF PHYSICIAN:: Chiqui Robles MD DATE of SERVICE: 04/24/2024 [facility] 04-24-2024 History of Present illness Narrative [facility] STAFF PHYSICIAN NOTE OF PERSONAL INVOLVEMENT IN CARE IMPRESSION: Complex regional pain syndrome Adjustment Disorder Tried multiple injections, procedures, surgeries. No benefit Tried SCS and recently DRG without success. Discussed ketamine PLAN: Ketamine infusions Consider scrambler therapy Psych psychology Memantine 5mg Psychotherapy Add-on Progress Note Due to medical condition and comorbid psychological and behavioral concerns - psychotherapy was utilized during the visit. Tvdr-xz-jxte time: 68836 (16-37 mins) actual time spend in psychotherapy [...] which included preparing to see the patient, hzil-qd-zjdp patient care, completing clinical documentation, performing a medically appropriate examination, and counseling and educating the patient/family/caregiver. As noted, the patient's clinical situation is complex and serious with significant comorbidity of pain and functional limitations. This requires higher levels of time, intensity, and expense with longitudinal care and support. STAFF PHYSICIAN:: Chiqui Robles MD DATE of SERVICE: 04/24/2024 [facility] [place] April 24, 2024 This is a face [...] Parish Tucker MD documented in this encounter [facility] 04-24-2024 Note HNO ID: [id number] Author: PARISH RIOS MD Service: ? Author Type: Resident Type: Progress Notes Filed: 04/24/2024 11:26 Note Text: [facility] [place] April 24, 2024 This is a face [...] Memantine Pain psychology consult Parish Tucker MD [facility] 03-21-2024 Telephone encounter Note Spoke with patient and notified him of provider recommendations. Verbalized understanding. Emilee So RN [facility] 03-21-2024 Miscellaneous Notes Spoke with patient and notified him of provider recommendations. Verbalized understanding. Emilee So RN Ok per Dr Araujo to proceed with trial - still recommending to keep appt with ID Spoke with patient at request of nursing scheduler as patient has questions about referral to infectious disease. Patient states that he spoke with his PCP, Dr. Hickman ([phone]) who spoke with Dr. Vega in Infectious disease at [facility]. Dr. Hickman ordered lab work [...] Emilee So RN documented in this encounter [facility] 03-21-2024 Telephone encounter Note Ok per Dr Araujo to proceed with trial - still recommending to keep appt with ID [facility] Work Phone: 03-19-2024 Telephone encounter Note Spoke with patient at request of nursing scheduler as patient has questions about referral to infectious disease. Patient states that he spoke with his PCP, Dr. Hickman ([phone]) who spoke with Dr. Vega in Infectious disease at [facility]. Dr. Hickman ordered lab work [...] move forward as planned. Emilee So RN [facility] 03-15-2024 Note Microbiology PROCEDURE: Blood Culture Charcoal [R1] SOURCE: Blood BODY SITE: COLLECTED DATE/TIME: 03/08/2024 08:30 EDT RECEIVED DATE/TIME: 03/08/2024 09:02 EDT START DATE/TIME: 03/08/2024 09:02 EDT FREE TEXT SOURCE: michel Hickman MD, Haider Hickman MD, Haider Bee FINAL REPORTS Final Report [] Verified Date/Time: 03/15/2024 12:00 EDT No growth at 7 days. Performing Locations R1: This test was performed at: [facility], [address] [place] [address], [id number] , , [facility] Comment on above: Performed By: #### 1 [id number] #### [facility] [address] [place] [id number] 03-15-2024 Note Microbiology PROCEDURE: Blood Culture Charcoal [...] Locations R1: This test was performed at: [facility], [address] [place] [address], [id number]- , [place], [facility] Comment on above: Performed By: #### 1 [id number] #### [facility] [address] [place] [address] 02-29-2024 Instructions Senthil Giraldo MD - 02/29/2024 1:38 PM EDT - Right DRG trial - Obtain psychological evaluation report (patient reports he just had this done ~two months ago) and send to [facility] - ID consult - Rule out infectious risk with due to the dermatitis. - Follow up: Return to clinic for the above procedure documented in this encounter [facility] 02-29-2024 Note HNO ID: [id number] Author: HERBERTH ARAUJO MD, PhD Service: ? Author Type: Physician Type: Progress Notes Filed: 03/18/2024 19:05 Note Text: [facility] New Patient Consultation Referring Physician: SELF Chief Complaint: Right third toe pain SUBJECTIVE: Dong Whitmore is a 73 year old male with a pertinent past medical history of diabetes who presents to [facility] for the evaluation of right third toe pain. 15-year history of right third toe pain. He notes that over this time the pain has become increasingly severe has caused him significant discomfort and suffering. He has been to many specialists in the [facility] area-over the course of the past [...] depression 10-14 Mo (more content not included)... [facility] 02-29-2024 History of Present illness Narrative Images from the original note were not included. [facility] New Patient Consultation Referring Physician: SELF Chief Complaint: Right third toe pain SUBJECTIVE: Dong Whitmore is a 73 year old male with a pertinent past medical history of diabetes who presents to [facility] for the evaluation of right third toe pain. 15-year history of right third toe pain. He notes that over this time the pain has become increasingly severe has caused him significant discomfort and suffering. He has been to many specialists in the [facility] area-over the course of the past [...] history of diabetes who presents to [facility] for the evaluation of right third toe pain. He describes a 15-year history of right third toe pain. He notes that over this time the pain has become increasingly severe has caused him significant discomfort and suffering. He has been to many specialists in the [facility] area-over the course of the past [...] done ~two months ago) and send to [facility] - ID consult - [...] Araujo MD, PhD documented in this encounter [facility] 02-06-2024 Telephone encounter Note Called and spoke to patient. Gave him this message from Dr. Singletary: I'd suggest seeking an appointment with the following doctors who perform DRG implantation: Dr. Carlisle, Dr. Araujo, Dr. Dan, Dr. Cortés Patient voiced understanding. [facility] 02-06-2024 Miscellaneous Notes Called and spoke to [...] giving him the number to schedule at [facility] to discuss DRG? I'd suggest seeking an appointment with the following doctors who perform DRG implantation: Dr. Carlisle, Dr. Araujo, Dr. Dan, Dr. Moo Heard and Dr. Kamara may do DRG - I'm not sure. Thanks Lela! ----- Message ----- From: Livia Lester PA-C Sent: 02/05/2024 2:07 PM EDT To: Francoise Singletary MD No one on this side of [facility] that I know of does DRG [...] I know who do DRG are at [facility]. How do we refer him there? From what I remember, Truman Melendez, Ni, and Moo do DRG - do you know of anyone else? documented in this encounter [facility] 02-06-2024 Telephone encounter Note ----- Message from Francoise Singletary MD sent at 02/05/2024 3:12 PM EDT ----- Do you mind calling him and giving him the number to schedule at [facility] to discuss DRG? I'd suggest seeking an appointment with the following doctors who perform DRG implantation: Dr. Carlisle, Dr. Araujo, Dr. Dan, Dr. Moo Heard and Dr. Kamara may do DRG - I'm not sure. Thanks Lela! ----- Message ----- From: Livia Lester PA-C Sent: 02/05/2024 2:07 PM EDT To: Francoise Singletary MD No one on this side of [facility] that I know of does DRG [...] I know who do DRG are at [facility]. How do we refer him there? From what I remember, Truman Melendez Costandi, and Moo do DRG - do you know of anyone else? [facility] 02-05-2024 Instructions Francoise Singletary MD - 02/05/2024 1:01 PM EDT Thank you for taking the time to come and see me today! Please schedule an appointment for: [facility] Consult Please follow up with [facility] Please send all of your Podiatry, Neurology, and Pain Management records to us I will refer you to a provider who performs DRG to discuss this Please come back to see me as needed documented in this encounter [facility] 02-05-2024 History of Present illness Narrative Images from the original note were not included. [facility] Consultation Date: February 02, [...] The patient has seen other pain providers. [facility] Neurology OV 02/01/22 Assessment and Plan [...] has been to many specialists in the [facility] area-over the course of the past [...] I noted before, he appears today while [facility] was down, and I not have [...] will refer him to a doctor at [facility] for consideration of DRG and to discuss the risks, benefits, alternatives. Diagnostics/Referrals: -Chronic Pain Recovery Program referral Referral to [facility] podiatry, neurology for second opinions 2. Pharmaceuticals: [...] Status: Unknown Medical Decision Making [facility] EMR was reviewed during the [...] the shared EMR documented in this encounter [facility] 02-05-2024 Note HNO ID: [id number] Author: FRANCOISE SINGLETARY MD Service: ? Author Type: Physician Type: Progress Notes Filed: 02/05/2024 15:14 Note Text: [facility] Consultation Date: February 02, [...] The patient has seen other pain providers. [facility] Neurology OV 02/01/22 Assessment and Plan [...] has been to many specialists in the [place] area-over (more content not included)... [facility] 01-01-2024 Note [id number] [facility] 09-11-2023 Evaluation note Encounter Date Diagnosis Assessment [...] 6.9% 2. Blood glucose levels according to [employer] 3 cgm download 08/29/23-09/11/23 : Avg glucose [...] Current use of insulin (ICD-10 - Z79.4) [facility] Other 11-16-2023 Evaluation note* Encounter Date Diagnosis Assessment Notes Treatment Notes Treatment Clinical Notes Aug, Cellulitis of right lower extremity (ICD-10 - L03.115) I did thoroughly review all the studies from [facility]. I do not have any images to [...] include weight loss exercise and compression therapy. [facility] Other 09-01-2023 Evaluation note* Encounter Date Diagnosis [...] He was given a no cut Grif Steam Box Operator to try and a brochure to buy them online. We discussed the Novolog pen and that he is to use it if his BG before a meal is greater than 150. He was able to dial the pen and knows how to put the pen needle on and deliver the dose. 30 minutes were spent educating the patient by Kamlesh Sparrow RN, [facility]. [facility] Other 05-30-2023 Evaluation note* Encounter Date Diagnosis [...] February, Metabolic syndrome X (ICD-10 - E88.81) [facility] Other 05-09-2023 Evaluation note* Encounter Date Diagnosis [...] last visit, continue with weight loss efforts [facility] 04-14-2023 Evaluation note* Encounter Date Diagnosis [...] the following goals: Add flavors to vegetables [facility] Other 03-30-2023 Evaluation note* Encounter Date Diagnosis [...] Dec, Metabolic syndrome X (ICD-10 - E88.81) [facility] Other 03-23-2023 NoteCARDIAC STRESS TEST Requesting Physician: [...] reported nuclear myocardial perfusion [facility]* Encounter Date Diagnosis Assessment Notes [...] following goals: 1) Increase vegetables at dinner [facility] Other 02-14-2023 Evaluation note* Encounter Date Diagnosis [...] and his by Kamlesh Sparrow RN, [facility]. Reviewed cgm download 11/08/22-11/20/22: Avg glucose 171. >250-1%, >180-30%, 70-180-69%, <70-0%, <540%. CV 15..2%. [employer] MONOTYPER, FINGERER-C, BC-ADM [facility] Other 02-10-2023 Evaluation note* Encounter Date Diagnosis [...] Nov, Metabolic syndrome X (ICD-10 - E88.81) [facility] 01-30-2023 Evaluation note* Encounter Date Diagnosis [...] medication issues. 6. Prescriptions: Acarbose sent to [facility]. Sample baylee 2 cgm given today. [...] Baylee 2 sensor and an office owned, [employer]. His phone was not compatible with Baylee 2 or 3, or Dexcom G6. He previously wore the Baylee 14 day system and did not need training on applying the device. I did train him on the use of the reader. He was vgiven samples of Grif Direct Mail Clerk and Skin Tac to help keep the device in place. 45 minutes were spent educating the patient by Kamlesh Sparrow RN, [facility]. [facility] Other 01-10-2023 Evaluation note* Encounter Date Diagnosis [...] program2) Try roasted cronin peppers (recipe provided) [facility] Other 11-11-2022 NotePROCEDURE: XR FOOT RT MIN [...] Electronically authenticated by: BRITTNY MORALES Date: 2022-08-19 06:17[facility]11-02-2022 Evaluation note* Encounter Date Diagnosis Assessment [...] nuts or cheese + crackers -Only likes burundian cheese,-Recommended 15g or less for snacks; so [...] likes those-Increase vegetable intake-Vegetables: corn, peas, carrots [facility] Other 10-19-2022 Evaluation note* Encounter Date Diagnosis [...] referral to Dr. Kelley for weight management [facility] Other 08-31-2022 Evaluation note* Encounter Date Diagnosis [...] and his would cook it for him [facility] Other 07-14-2022 Evaluation note* Encounter Date Diagnosis [...] improved glycemia. Pt would likek referral to [employer]. Note pt has intolerance to glp1 class [...] of glucose/bp control to prevent further nephropathy [facility] Other 01-13-2022 Evaluation note* Encounter Date Diagnosis [...] medication issues. 6. Prescriptions: Pioglitazone sent to [facility]. Oct, Hyperlipidemia, unspecified hyperlipidemia type (ICD-10 - [...] brochure given today. Recommend call if interested. [facility] Other 10-13-2021 Evaluation note* Encounter Date Diagnosis Assessment Notes Treatment Notes Treatment Clinical Notes Jul, SANTANA (nonalcoholic steatohepatitis) (ICD-10 - K75.81) Jul, Other [facility] INDICATED ABOVE F/U HERE PRN [facility] Other Evaluation noteNo InformationNort [employer] Other Evaluation noteNo assessment information available [facility] Work Phone: Evalugubdg note* Diagnosis Chronic toe pain, right foot- Primary 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, not stated as uncontrolled Class 3 severe obesity with serious comorbidity and body mass index (BMI) of 40.0 to 44.9 in adult, unspecified obesity type (HCC) [facility] Diagnosis Chronic toe pain, right foot- [...] right lower limb [facility]* Diagnosis Adjustment disorder with depressed mood- Primary Complex regional pain syndrome type II of right lower limb Chronic toe pain, right foot Class 3 severe obesity with serious comorbidity and body mass index (BMI) of 40.0 to 44.9 in adult, unspecified obesity type (HCC) [facility]* Diagnosis Adjustment disorder with depressed mood- Primary Complex regional pain syndrome type II of right lower limb Chronic toe pain, right foot [facility] Diagnosis Adjustment disorder with depressed mood- Primary Complex regional pain syndrome type II of right lower limb Chronic toe pain, right foot [facility]* Diagnosis Complex regional pain syndrome type II of right lower limb [facility]* Diagnosis Acquired deformity of right toe- Primary Diabetes 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, 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 longitudinal float operator insulin use ([facility]/HCC) documented in this encounter [facility] HealthcareEvaluation note* Diagnosis Internal derangement of left shoulder- Primary Arthritis of left acromioclavicular joint Complete tear of left rotator cuff, 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 traumatic Left shoulder pain, unspecified chronicity documented in this encounter [facility] HealthcareEvaluation note* Diagnosis Acquired deformity of right toe- Primary Diabetes 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, 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 longitudinal float operator insulin use (CMS/[facility]) Amputation of right great toe (CMS/HCC) documented in this encounter [facility] HealthcareEvaluation note* Diagnosis Amputation of toe of right foot (CMS/HCC)- Primary Diabetes 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, 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 longitudinal float operator insulin use (CMS/[facility]) Pain due to onychomycosis of toenails of both feet documented in this encounter [facility] HealthcareEvaluation note* Diagnosis Internal derangement of left shoulder- Primary Complete tear of left rotator cuff, 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 traumatic documented in this encounter [facility] HealthcareEvaluation note* Diagnosis Complex regional pain syndrome type II of right lower limb Chronic toe pain, right foot Class 3 severe obesity with serious comorbidity and body mass index (BMI) of 40.0 to 44.9 in adult, unspecified obesity type (HCC) [facility]* Diagnosis Right foot pain- Primary Pain in soft tissues of limb Diabetic polyneuropathy associated with type 2 diabetes mellitus (CMS/HCC) documented in this encounter [facility] HealthcareEvaluation note* Diagnosis Acquired deformity of right toe- Primary Left shoulder pain, unspecified chronicity- Primary Arthritis of left acromioclavicular joint Glenohumeral arthritis, left Impingement of left shoulder documented in this encounter [facility] HealthcareEvaluation note* Diagnosis Acquired deformity of right toe- Primary Diabetes 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, 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 halfway insulin use (CMS/HCC) Venous insufficiency Unspecified venous (peripheral) insufficiency Non-pressure chronic ulcer of other part of right lower leg with fat layer exposed (CMS/[facility]) Left shoulder pain, unspecified chronicity- Primary Arthritis of left acromioclavicular joint Glenohumeral arthritis, left Impingement of left shoulder documented in this encounter [facility] HealthcareEvaluation note* Diagnosis Left shoulder pain, unspecified chronicity- Primary Arthritis of left acromioclavicular joint Glenohumeral arthritis, left Impingement of left shoulder documented in this encounter [facility] HealthcareEvaluation note* Diagnosis Acquired deformity of right toe- Primary Diabetes 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, 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 longitudinal float operator insulin use (CMS/HCC) Amputation of right great toe ([facility]/HCC) documented in this encounter [facility] HealthcareEvaluation note* Diagnosis Acquired deformity of right toe Left shoulder pain, unspecified chronicity- Primary Arthritis of left acromioclavicular joint Glenohumeral arthritis, left Impingement of left shoulder documented in this encounter [facility] HealthcareEvaluation note* Diagnosis Left shoulder pain, unspecified chronicity- Primary Arthritis of left acromioclavicular joint Glenohumeral arthritis, left Impingement of left shoulder Internal derangement of left shoulder documented in this encounter [facility] HealthcareEvaluation note* Diagnosis Acquired deformity of right toe- Primary documented in this encounter [facility]* Diagnosis Internal derangement of left shoulder- Primary documented in this encounter [facility] HealthcareEvaluation note* Diagnosis Diabetes 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, 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 longitudinal float operator insulin use ([facility])- Primary Pain due to onychomycosis of toenails of both feet Venous insufficiency Unspecified venous (peripheral) insufficiency documented in this encounter [facility] HealthcareHistory general Narrative - Reported* [...] first metatarsal 2-8-19 Hospitalization History see above [facility] Other History general Narrative - Reported* Type [...] Foot Surgery 10/27/2021 Hospitalization History see above [facility] general Narrative - Reported* Type Description Date [...] Foot Surgery 10/27/2021 Hospitalization History see above [facility] Reason for visit Narrative* Consultation (Routine) - Closed Specialty Diagnoses / Procedures Referred By Contac t Referred To Contact Neurology Diagnoses Neuropathic pain, MRI / labs @ [facility] , ref by Dr Hickman Procedures NE OFFICE/OUTPATIENT NEW LOW [facility] 30 MINUTES NEURO NEW PATIENT Haider Hickman MD [address] [place] [address] Phone: tel: fax: Matthew May DO [address] [place] [address] Phone: tel: fax: Referral ID Status Reason Start Date Expiration Date V isits Requested Visits Authorized [id number] Closed Consult and Treat 08/22/2024 02/18/2025 1 1 [facility] Healthcare Summary Purpose Family History No Family [...] wo IV contrast Chelle Brandon NP [address] [facility] [address] [place] [address] Referral ID Status Reason Start Date Expiration Date V isits Requested Visits Authorized [id number] Pending Review 07/01/2024 12/28/2024 1 1 Specialty Diagnoses / Procedures Referred By Contac t Referred To Contact Orthopaedic Surgery Diagnoses Impingement of left shoulder Procedures L Inj/Asp: L subacromial bursa Chelle Brandon NP [address] [facility] [address] [place] [address] Referral ID Status Reason Start Date Expiration Date V isits Requested Visits Authorized [id number] Authorized 06/12/2024 12/09/2024 1 1 Specialty Diagnoses / Procedures Referred By Contac t Referred To Contact Diagnoses Acquired deformity of right toe Shyam Cam, DPM [facility] [address] [place] [address] Referral ID Status Reason Start Date Expiration Date V isits Requested Visits Authorized [id number] Pending Review 06/19/2024 12/16/2024 1 1 Specialty Diagnoses / Procedures Referred By Contac t Referred To Contact Diagnoses Complex regional pain syndrome type II of right lower limb Chronic toe pain, right foot Class 3 severe obesity with serious comorbidity and body mass index (BMI) of 40.0 to 44.9 in adult, unspecified obesity type (HCC) Procedures PROVIDER ORDERED FOLLOW UP OFFICE/OUTPATIENT [facility] 60 MINUTES Chiqui Robles MD [address] [place] [address] Referral ID Status Reason Start Date Expiration Date Visits Requested Visits Authorized [id number] Authorized PCP Requested Referral 06/25/2024 04/24/2025 1 1 Specialty Diagnoses / Procedures Referred By Contac t Referred To Contact Infectious Diseases Diagnoses Dermatitis of lower extremity Procedures CONSULT TO INFECTIOUS DISEASES OFFICE/OUTPATIENT [facility] 60 MINUTES Herberth Araujo MD, PhD [address] [place] [address] Referral ID Status Reason Start Date Expiration Date Visits Requested Visits Authorized [id number] Authorized PCP Requested Referral 02/29/2024 02/28/2025 1 1 Specialty Diagnoses / Procedures Referred By Contac t Referred To Contact Podiatry Diagnoses Chronic toe pain, right foot Painful diabetic neuropathy (HCC) Procedures CONSULT TO PODIATRY OFFICE/OUTPATIENT [facility] 60 MINUTES Francoise Singletary MD [address] [place] [address] Referral ID Status Reason Start Date Expiration Date Visits Requested Visits Authorized [id number] Authorized PCP Requested Referral 02/05/2024 02/04/2025 1 1 Specialty Diagnoses / Procedures Referred By Contac t Referred To Contact Neurology Diagnoses Chronic toe pain, right foot Painful diabetic neuropathy (HCC) Procedures CONSULT TO NEUROLOGY OFFICE/OUTPATIENT [facility] 60 MINUTES Francoise Singletary MD [address] [id number] Referral ID Status Reason Start Date Expiration Date Visits Requested Visits Authorized [id number] Authorized PCP Requested Referral 02/05/2024 02/04/2025 1 1 Specialty Diagnoses / Procedures Referred By Contac t Referred To Contact Spine [place] Diagnoses Chronic toe pain, right foot Painful diabetic neuropathy (HCC) Procedures CONSULT TO [facility] FOR PAIN RECOVERY (CHRONIC PAIN) OFFICE/OUTPATIENT NEW [facility]IGH [facility] 60 MINUTES Francoise Singletary MD [address] [place] [address] Referral ID Status Reason Start Date Expiration Date Visits Requested Visits Authorized [id number] Pending Review PCP Requested Referral 02/05/2024 02/04/2025 1 1 Additional Source Comments REASON FOR VISIT (unrecogniz ed section and content) Reason Comments Consult Rt foot Reason Comments Established Patient Medication Update Reason Comments Nurse Triage Call Reason Comments New Patient Specialty Diagnoses / Procedures Referred By Contac t Referred To Contact Spine [place] Diagnoses Complex regional pain syndrome type II of right lower limb Chronic toe pain, right foot Class 3 severe obesity with serious comorbidity and body mass index (BMI) of 40.0 to 44.9 in adult, unspecified obesity type (HCC) Procedures [facility] ([facility]IN) OFFICE/OUTPATIENT NEW HIGH MDM 60 MINUTES Herberth Araujo MD, PhD [address] [place] [address] Referral ID Status Reason Start Date Expiration Date Visits Requested Visits Authorized [id number] Pending Review PCP Requested Referral 04/03/2024 04/03/2025 [...] 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 traumatic Arlen Sanchez, DO [address] [facility] [address] [place] [address] Phone: tel: fax: Khai Heard, DO [address] [place] [address] Phone: tel: fax: Referral ID Status Reason Start Date Expiration Date V isits Requested Visits Authorized [id number] Closed Consult and Treat 07/23/2024 01/19/2025 1 [...] (HCC) Procedures PROVIDER ORDERED FOLLOW UP OFFICE/OUTPATIENT [facility] 60 MINUTES Chiqui Robles MD [address] [place] [address] Referral ID Status Reason Start Date Expiration Date V isits Requested Visits Authorized [id number] Closed PCP Requested Referral 06/25/2024 04/24/2025 1 [...] content) DATE CREATED AUTHOR 02/20/2023 [facility] DATE CREATED AUTHOR AUTHOR'S ORGANIZ ATION 11/22/2023 [facility] DATE CREATED AUTHOR AUTHOR'S ORGANIZ ATION 03/09/2024 [facility] DATE CREATED AUTHOR AUTHOR'S ORGANIZ ATION 03/16/2024 [facility] DATE CREATED AUTHOR AUTHOR'S ORGANIZ ATION 07/19/2024 [facility] DATE CREATED AUTHOR AUTHOR'S ORGANIZ ATION 08/28/2024 [facility] DATE CREATED AUTHOR AUTHOR'S ORGANIZ ATION 09/06/2024 [facility] DATE CREATED AUTHOR AUTHOR'S ORGANIZ ATION 09/12/2024 [facility] DATE CREATED AUTHOR AUTHOR'S ORGANIZ ATION 09/19/2024 [facility] DATE CREATED AUTHOR AUTHOR'S ORGANIZ ATION 10/20/2024 [facility] DATE CREATED AUTHOR AUTHOR'S ORGANIZ ATION 10/22/2024 [facility] DATE CREATED AUTHOR AUTHOR'S ORGANIZ ATION 10/26/2024 [facility] DATE CREATED AUTHOR AUTHOR'S ORGANIZ ATION 10/27/2024 [facility] [place] [facility] Care Teams (unrecognized sec [...] September 11, 2023 End: September 11, 2023 Trade Sales Assistant Relationship Specialty Start Date End Date Miguelangel Mac MD [address] [place] [address] [address] [place] [address] Referring Pain Management 01/29/24 Trade Sales Assistant Relationship Specialty Start Date End Date Miguelangel Mac MD [address] [place] [address] 1 [place] [address] Referring Pain Management 01/29/24 Trade Sales Assistant Relationship Specialty Start Date End Date Miguelangel Mac MD [address] [place] [address] 1 [place] [address] Referring Pain Management 01/29/24 Trade Sales Assistant Relationship Specialty Start Date End Date Miguelangel Mac MD [address] [place] [address], [place] [address] Referring Pain Management 01/29/24 Trade Sales Assistant Relationship Specialty Start Date End Date Haider Hickman MD [address] [place] [address], [place] [address] PCP - General Family Medicine 03/26/24 Miguelangel Mac MD [address] [place] [address], [place] [address] Referring Pain Management 01/29/24 Trade Sales Assistant Relationship Specialty Start Date End Date Haider Hickman MD [address] [place] [address] PCP - General Family Medicine 03/26/24 Miguelangel Mac MD [address] [place] [address], [place] [address] Referring Pain Management 01/29/24 Trade Sales Assistant Relationship Specialty Start Date End Date Haider Hickman MD [address] [place] [address] PCP - General Family Medicine 03/26/24 Miguelangel Mac MD [address] [place] [address] Referring Pain Management 01/29/24 Trade Sales Assistant Relationship Specialty Start Date End Date Haider Hickman MD [address] [place] [address] PCP - General Family Medicine 03/26/24 Miguelangel Mac MD [address] [place] [address] Referring Pain Management 01/29/24 Trade Sales Assistant Relationship Specialty Start Date End Date Haider Hickman MD [address] [place] [address] PCP - General Family Medicine 03/26/24 Miguelangel Mac MD [address] [place] [address] Referring Pain Management 01/29/24 Trade Sales Assistant Relationship Specialty Start Date End Date Haider Hickman MD [address] [place] [address] PCP - General Family Medicine 03/26/24 Miguelangel Mac MD [address] [place] [address] Referring Pain Management 01/29/24 Trade Sales Assistant Relationship Specialty Start Date End Date Haider Hickman MD [address] [place] [facility] [place] [address] PCP - General Family Medicine 05/09/24 Trade Sales Assistant Relationship Specialty Start Date End Date Haider Hickman MD [address] [place] [facility] [place] [address] PCP - General Family Medicine 05/09/24 Trade Sales Assistant Relationship Specialty Start Date End Date Haider Hickman MD [address] [place] [facility] [place] [address] PCP - General Family Medicine 05/09/24 Trade Sales Assistant Relationship Specialty Start Date End Date Haider Hickman MD [address] [place] [address] PCP - General Family Medicine 05/09/24 Trade Sales Assistant Relationship Specialty Start Date End Date Haider Hickman MD [address] [place] [address], [place] [address] PCP - General Family Medicine 05/09/24 Trade Sales Assistant Relationship Specialty Start Date End Date Haider Hickman MD [address] [place] [place] [address] PCP - General Family Medicine 03/26/24 Miguelangel Mac MD [address] [place] [address] 1 [address] [place] [address] Referring Pain Management 01/29/24 Trade Sales Assistant Relationship Specialty Start Date End Date Haider Hickman MD [address] [place] [address] PCP - General Family Medicine 05/09/24 Trade Sales Assistant Relationship Specialty Start Date End Date Haider Hickman MD [address] [place] [address] PCP - General Family Medicine 05/09/24 Trade Sales Assistant Relationship Specialty Start Date End Date Haider Hickman MD [address] [place] [address] PCP - General Family Medicine 05/09/24 Trade Sales Assistant Relationship Specialty Start Date End Date Haider Hickman MD [address] [place] [address] PCP - General Family Medicine 05/09/24 Trade Sales Assistant Relationship Specialty Start Date End Date Haider Hickman MD [address] [place] [address] PCP - General Family Medicine 05/09/24 Trade Sales Assistant Relationship Specialty Start Date End Date Haider Hickman MD [address] [place] [address] PCP - General Family Medicine 05/09/24 Trade Sales Assistant Relationship Specialty Start Date End Date Haider Hickman MD [address] [place] [address] PCP - General Family Medicine 05/09/24 Trade Sales Assistant Relationship Specialty Start Date End Date Haider Hickman MD [address] [place] [address] PCP - General Family Medicine 05/09/24 Trade Sales Assistant Relationship Specialty Start Date End Date Haider Hickman MD [address] [place] [address] PCP - General Family Medicine 05/09/24 Trade Sales Assistant Relationship Specialty Start Date End Date Haider Hickman MD [address] [place] [address] PCP - General Family [facility] 05/09/24 Trade Sales Assistant Relationship Specialty Start Date End Date Haider Hickman MD [address] [place] [address] PCP - General [facility] 05/09/24 Goals (unrecognized section and content) Goals may be documented in a n alternate section Source Comments (unrecognize d section and content) In the event this informatio n is protected by the Federal Confidentiality of Alcohol and Drug Abuse Patient Records regulations: The Federal rules restrict any use of the information to criminally investigate or prosecute any alcohol or drug abuse patient.[facility] the event this information is protected by the Federal Confidentiality of Alcohol and Drug Abuse Patient Records regulations: The Federal rules restrict any use of the information to criminally investigate or prosecute any alcohol or drug abuse patient.[facility] the event this information is protected by the Federal Confidentiality of Alcohol and Drug Abuse Patient Records regulations: The Federal rules restrict any use of the information to criminally investigate or prosecute any alcohol or drug abuse patient.[facility] the event this information is protected by the Federal Confidentiality of Alcohol and Drug Abuse Patient Records regulations: The Federal rules restrict any use of the information to criminally investigate or prosecute any alcohol or drug abuse patient.[facility] the event this information is protected by the Federal Confidentiality of Alcohol and Drug Abuse Patient Records regulations: The Federal rules restrict any use of the information to criminally investigate or prosecute any alcohol or drug abuse patient.[facility] the event this information is protected by the Federal Confidentiality of Alcohol and Drug Abuse Patient Records regulations: The Federal rules restrict any use of the information to criminally investigate or prosecute any alcohol or drug abuse patient.[facility] the event this information is protected by the Federal Confidentiality of Alcohol and Drug Abuse Patient Records regulations: The Federal rules restrict any use of the information to criminally investigate or prosecute any alcohol or drug abuse patient.[facility] the event this information is protected by the Federal Confidentiality of Alcohol and Drug Abuse Patient Records regulations: The Federal rules restrict any use of the information to criminally investigate or prosecute any alcohol or drug abuse patient.[facility] the event this information is protected by the Federal Confidentiality of Alcohol and Drug Abuse Patient Records regulations: The Federal rules restrict any use of the information to criminally investigate or prosecute any alcohol or drug abuse patient.[facility] the event this information is protected by the Federal Confidentiality of Alcohol and Drug Abuse Patient Records regulations: The Federal rules restrict any use of the information to criminally investigate or prosecute any alcohol or drug abuse patient.[facility] the event this information is protected by the Federal Confidentiality of Alcohol and Drug Abuse Patient Records regulations: The Federal rules restrict any use of the information to criminally investigate or prosecute any alcohol or drug abuse patient.[facility] the event this information is protected by the Federal Confidentiality of Alcohol and Drug Abuse Patient Records regulations: The Federal rules restrict any use of the information to criminally investigate or prosecute any alcohol or drug abuse patient.[facility] FOR RECORDS PERTAINING TO PATIENTS WHO ARE [...] BE BASED ON THE PRIMARY CLINICAL RECORDS. [facility] [employer] [facility]. provides no warranty or guarantee of the accuracy or completeness of information in this document.
[2024-10-31 10:09] LABS: INR 1.17; Partial Thromboplastin Time 26.8 sec (22.3-36.2); Prothrombin Time 12.2 sec (9.0-11.6)
[2024-10-31 10:10] LABS: Estimated Average Glucose 128 mg/dL; Glycohemoglobin A1C 6.1 % (4.5-6.2)
[2024-10-31 10:37] LABS: Alanine Aminotransferase 39 U/L (16-63); Albumin Globulin Ratio 1.1; Albumin Level 3.7 g/dL (3.4-5.0); Alkaline Phosphatase 92 U/L (46-116); Anion Gap 9.6; Aspartate Amino Transferase 22 U/L (15-37); BUN Creatinine Ratio 21.6; Bilirubin Total 0.4 mg/dL (0.2-1.0); Calcium 9.1 mg/dL (8.5-10.1); Carbon Dioxide 32.5 mmol/L (21.0-32.0); Chloride 103 mmol/L (98-107); Chol HDL Ratio 2.5; Cholesterol 135 mg/dL (<=200); Estimated GFR (African America 54 (>=60 mL/min/1.73m^2); Estimated GFR (Non-African Ame 45 (>=60 mL/min/1.73m^2); Globulin 3.5 g/dL; Glucose 106 mg/dL (74-106); HDL Cholesterol 53 mg/dL (40-60); LDL Cholesterol Calculated 66.4 mg/dL; Potassium 4.1 mmol/L (3.5-5.1); Sodium 141 mmol/L (136-145); Total Protein 7.2 g/dL (6.4-8.2); Triglycerides 78 mg/dL (<=150); VLDL CHOLESTEROL 15.6 mg/dL
== END 2024-10-31 09:34 | disposition home or self-care (01) ==
LOC: LAB 09:33
PROVIDERS: PCP Family Medicine; Visit Provider Family Medicine
DX: E11.22 Type 2 diabetes mellitus with diabetic chronic kidney disease (principal)
CPT/HCPCS: 36415; 80053; 80061; 83036; 85025; 85610; 85730

== ENCOUNTER 2024-11-09 15:37 | Emergency (ER) | payer MEDICARE, OTHER, SELFPAY ==
[2024-11-09 15:43] VITALS: BP 133/75; PULSE 82; TEMP 36.4; O2SAT 95; BMI 42.3
--- OUTSIDE RECORDS SUMMARY | 2024-11-09 15:43 | XMS_ITS | CCD ---
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 Name Role Phone Morgan Kunz Unavailable Aldo [...] Provider MD Scarlet Johnson Primary Care Provider [phone] MD Eligio Soni Attending Provider [phone] MD Scarlet Johnson Primary Care Provider MD [...] Attending Unavailable REFERRAL, SELF Referring Unavailable Araceli BERMDUEZ Attending Unavailable BASSAM AGUILAR Attending Unavailable CHELLE BRANDON Attending Unavailable CHELLE BRANDON Referring Unavailable PATRICIA MCPHERSON Attending Unavailable BASSAM AGUILAR Attending Unavailable BASSAM AGUILAR Attending Unavailable CHELLE BRANDON Attending Unavailable CHELLE BRANDON Attending Unavailable BASSAM AGUILAR Attending Unavailable SHYAM CAM Attending Unavailable SHYAM CAM Referring Unavailable DOLKAJAL BOATENG Attending Unavailable CHELLE BRANDON Attending Unavailable DOLKILO, SHYAM Stoner Attending Unavailable DANIEL, ARLEN Nur Attending Unavailable TUTU, SHYAM Stoner Attending Unavailable TUTU, SHYAM Stoner Attending Unavailable KHAI HEARD Attending Unavailable ARLEN SANCHEZ Referring Unavailable BASSAM AGUILAR Attending Unavailable MATTHEW MAY Attending Unavailable HAIDER HICKMAN E Referring Unavailable BASSAM AGUILAR Attending Unavailable Haider Hickman ESuzie Admitting Unavailable Haider Hickman ESuzie Attending Unavailable Haider Hickman ESuzie Attending Unavailable Haider Hickman ESuzie Attending Unavailable Haider Hickman ESuzie Admitting Unavailable Haider Hickman ESuzie Attending Unavailable Haider Hickman ESuzie Attending Unavailable Allergies Allergy Classification Reported Allergen(s) Allergy Type Date of Onset Reaction(s) Facility (20 sources) Cefuroxime; Translations: [cefuroxime] Drug Allergy 06-09-20 Unknown [facility] (20 sources) celecoxib; Translations: [CELECOXIB] Drug Allergy 06-09-20 Unknown [facility] (20 sources) Diflunisal; Translations: [DIFLUNISAL] Drug Allergy 06-09-20 21 Unknown [facility] (20 sources) dulaglutide Drug Allergy 09-11-20 23 Unknown, g/i [facility] (20 sources) Ibuprofen Drug Allergy Unknown [facility] Other (20 sources) liraglutide; Translations: [LIRAGLUTIDE] Drug Allergy 11-25-19 23 stomach upset [facility] (20 sources) metFORMIN; Translations: [metFORMIN] Drug Allergy 06-09-20 stomach upset [facility] (20 sources) Naproxen; Translations: [NAPROXEN] Drug Allergy 06-09-20 Unknown [facility] (20 sources) Sulindac; Translations: [Clinoril] Drug Allergy 07-10-20 15 Unknown [facility] Repository (1 source) Cefuroxime Drug Allergy 07-13-20 16 [facility] (5 sources) celecoxib; Translations: [CeleBREX] Drug Allergy 07-10-20 15 [facility] (5 sources) liraglutide; Translations: [Victoza] Drug Allergy [facility] (1 source) metFORMIN Drug Allergy 06-15-20 17 [facility] (5 sources) Naproxen; Translations: [Naprosyn] Drug Allergy 07-10-20 15 [facility] Rep[facility] (3 sources) NSAIDs; Translations: [NSAIDS (NON-STEROIDAL ANTI-INFLAMMATORY DRUG)] Drug allergy (disorder) 07-10-20 15 [facility] (5 sources) Povidone-Iodine; Translations: [Dolobid] Drug Allergy 07-10-20 15 [facility] (20 sources) Cephalosporins (Antibiotic); Translations: [Cephalosporins] Propensity to adverse reactions 05-29-20 18 Unknown Reaction [facility] (20 sources) Ibuprofen; Translations: [ibuprofen] Drug Allergy 09-11-20 Unknown [facility] (20 sources) Sulindac; Translations: [sulindac] Drug Allergy 06-09-20 21 Unknown [facility] (1 source) Cefuroxime Drug Allergy 09-11-20 [facility] (1 source) celecoxib Drug Allergy 09-11-20 [facility] (1 source) Diflunisal Drug Allergy 09-11-20 [facility] (1 source) dulaglutide Drug Allergy 09-11-20 [facility] (1 source) liraglutide Drug Allergy 09-11-20 [facility] (1 source) metFORMIN Drug Allergy 09-11-20 [facility] (1 source) Naproxen Drug Allergy 09-11-20 [facility] Repository (12 sources) Non-steroidal anti-inflammatory agent Drug Intolerance 02-05-20 24 GI Upset [facility] (4 sources) Cefuroxime; Translations: [Cefuroxime Axetil] Drug Allergy [facility] Repository (4 sources) dulaglutide; Translations: [Trulicity] Drug Allergy [facility] (4 sources) Niacin; Translations: [niacin] Drug Allergy [facility] Rep[facility] (20 sources) NSAIDs; Translations: [NSAIDs] Propensity to adverse reactions (disorder) 07-23-20 24 Other [facility] Repository (4 sources) rofecoxib; Translations: [Vioxx] Drug Allergy [facility] (20 sources) celecoxib Drug Allergy 05-18-20 Unknown [facility] (20 sources) Diflunisal Drug Allergy 06-09-20 Unknown [facility] (20 sources) dulaglutide Drug Allergy 05-18-20 Unknown [facility] (20 sources) liraglutide Drug Allergy 05-18-20 Unknown [facility] (20 sources) metFORMIN Drug Allergy 05-18-20 Unknown [facility] (20 sources) rofecoxib; Translations: [ROFECOXIB] Drug Allergy 06-09-20 Unknown [facility] Medications Current Medications Medication Drug [...] oral tablet (19 sources) Benzodiazepine Start: 07-10-20 24 take 1 tablet by mouth every hour [...] sources) Angiotensin 2 Receptor Nathaly Start: 02-01-20 24 take 1.5 tablets by mouth once losartan (COZAAR) 50 mg tablet Take 1.5 tablets by mouth every afternoon. 02/01/2024 Active Start: 03-12-2023 take 2 tablets by mo [facility] at bedtime losartan (Cozaar) 50 [...] hydrochloride 10 mg oral tablet (20 sources) T-ghigfa-Z-aspartate Receptor Antagonist Start: 05-31-2024 End: 07-22-2024 take [...] DOSES NEEDED FOR CHEST PAIN 09/20/2023 Active [place] 3-Mai-Oro-Fish Oil (Fish Oil) 1,000 mg (120 mg-180 mg) Capsule (2 sources) Start: 018 [place] 8-Ldp-Auy-Fish Oil (Fish Oil) 1,000 mg (120 mg-180 [...] Orally once a day Active FreeStyle Baylee [place] - (7 sources) FreeStyle [place] - use with baylee sensor SQ daily [...] Coronary arteriosclerosis; Translations: [Atherosclerotic heart disease of morongo coronary artery without angina pectoris] Onset: 9 [...] shoulder] 07-23-2024 Chronic Other aftercare (1 source) longterm (current) use of aspirin; Translations: [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 ASPIRIN] Onset: 3 Episodic Other aftercare (1 source) Other fdc (current) drug therapy; Translations: [OTH SNF CURRENT DRUG THERAPY] Onset: 3 Episodic Other aftercare (6 sources) Long-term current use of insulin; Translations: [longterm (current) use of insulin] Episodic Other aftercare (1 source) 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 Episodic Other [...] Reference Range Facility Ambulatory Visit Summaryon 0 11-04-2024 Ambulatory Visit Summary Ambulatory Visit Summary DONG WHITMORE :1950 Visit Date:11/04/2024 Ambulatory Visit Instructions Your Diagnosis Coronary arteriosclerosis in morongo artery Mixed hyperlipidemia 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 This Is Your Medications List [facility] Prescription (Eric Prather, 5 years.) [...] 30 mg Tab) potassium chloride (Potassium Chloride (Jja-Doje-Kpj M20) 20 mEq oral tablet, extended release) [...] in cardiac conduit, Stimulator. Discharge Vitals Temperature (Tympanic) 36.7 ???C Heart Rate (Peripheral) 68 Respiratory Rate 18 Blood Pressure 138/82 Height 168 cm Height 66 in Weight 126 kg Weight 277.782 lb BMI 44.64 What to do next Scheduled Follow-Up Appointments Monday 10:00 AM EDT With: Kristofer SCHUSTER, Haider Bee Where: [address] [address] 2024 8:00 AM EDT With: Where: [address] [address]- Monday 9:15 AM EDT With: AIDAN SCHUSTER, Araceli Treadwell Where: [facility] [address], [address] [place] [address]- Medications What How Much When Why Instructions [...] tab(s) Oral Daily Unchanged Misc Prescription (Handicap Yamilka, 5 years.) [...] Every day Unchanged potassium chloride (Potassium Chloride (Wjd-Smfw-Sss M20) 20 mEq oral tablet, ex (more content not included)... Normal [facility] Family Medicine Office/Clini c Noteon 11-04-2024 Family Medicine Office/Clinic Note Family Medicine Office/Clinic Note Chief Complaint Follow up The patient complains of worsening balance and dizziness. HPI Staff 1m follow up to fatty liver US done 10/22/24 Labs completed. Pain in upper gastric area has subsided over the last couple days. History of Present Illness The patient is a 74-year-old male presenting with dizziness and difficulty ambulating. The patient reports that balance issues have significantly worsened over the past month and a half, making it challenging to walk even short distances without feeling unsteady. Despite a change in medication, dizziness persists, although there has been some improvement. The patient describes an acute episode of severe dizziness last that lasted the entire day and was debilitating. Prior to this, episodes of dizziness were milder and sporadic. The underlying coronary arteriosclerosis in morongo arteries, benign hypertension with chronic kidney disease, stage III, and type 2 diabetes mellitus with hyperlipidemia could be contributing factors to his current condition. The patient suspects disuse as a cause of the leg weakness, as he has decreased physical activity due to not using his legs frequently. The dizziness and balance issues are negatively impacting his daily activities and quality of life. No interventions have been tried yet to specifically evaluate or aggressively treat these symptoms. - Monitoring of A1c levels to manage type 2 diabetes mellitus - Discussion of healthy lifestyle modifications, including diet and exercise, to manage hyperlipidemia and improve balance - Consideration of hydration due to increased dizziness in cold weather Review of Systems PHQ Score Initial Depression Screen Score: 0 SCORE Physical Exam Vitals & Measurements T: 36.7 ???C(Tympanic) HR: 68(Peripheral) RR: 18 BP: 138/82 SpO2: 98% HT: 66 in HT: 168 cm WT: 126 kg WT: 277.782 lb BMI: 44.64 General: alert, no acute distress ENMT: oral mucosa moist Cardiovascular: Regular rate and rhythm, normal peripheral perfusion Respiratory: Lungs clear to auscultation, respirations non labored Extremities: no deformity, no trauma Neurological: oriented x 4, level of consciousness appropriate for age, CN II-XII intact, motor strength equal & normal bilaterally, speech normal, balance issues noted, dizziness reported Abdomen: Soft, Non-tender, Non-distended, + Bowel sounds, cholelithiasis present Assessment/Plan 1. Coronary arteriosclerosis in morongo artery (I25.10: Atherosclerotic heart disease of morongo coronary artery without angina pectoris) Diet and exercise. No CP at this time. 2. Mixed hyperlipidemia (E78.2: Mixed hyperlipidemia) Continue on statins as before. 3. Long-term insulin use (Z79.4: longterm (current) use of insulin) Continue on Insulin. 4. Type 2 diabetes mellitus with hyperlipidemia (E11.69: Type 2 diabetes mellitus with other specified complication) A1c levels are slightly elevated. Discussed the importance of diet and exercise in managing the condition. Review medications if glycemic control does not improve. 5. Benign hypertension with chronic kidney disease, stage III (I12.9: Hypertensive chronic kidney disease with stage 1 through stage 4 chronic kidney disease, or unspecified chronic kidney disease) Maintain blood pressure monitoring and adjust medications as needed. Ensure kidney disease management is aligned with current diabetes and hypertension control. At goal. 6. BMI 40.0-44.9, adult (Z68.41: Body mass index [BMI] 40.0-44.9, adult) BMI education added 7. Obesity, morbid, BMI 40.0-49.9 (E66.01: Morbid (severe) obesity due to excess calories) Diet and exercise advised 8. Nonsmoker (Z78.9: Other specified health status) Please continue to not smoke 9. Calculus of gallbladder without cholecystitis without obstruction (K80.20: Calculus of gallbladder without cholecystitis without obstruction) Referral to GI for evaluation of cholelithiasis and possible surgical intervention if symptoms worsen With the fatty liver. If patient continues to have pain will send to [facility]. 10. Dizziness and giddiness (R42: Dizziness and giddiness) Consider referral to physical therapy to evaluate gait and perform maneuvers for vertigo. Explore disuse atrophy as a contributing factor and suggest physical therapy for strengthening exercises. Evaluate hydration status and encourage adequate fluid intake to combat cold-induced dizziness episodes. Pt is already at PT, but has not addressed his dizziness with them. Chronic kidney disease, stage 3 unspecified (N18.30: Chronic kidney disease, stage 3 unspecified) Hyperlipidemia, unspecified (E78.5: Hyperlipidemia, unspecified) 74-year-old male with a history of coronary arteriosclerosis, benign hypertension with chronic kidney disease stage III, and type 2 diabetes mellitus, presenting with dizziness and difficulty ambulating. The recent worsening of dizziness and balance issues suggests a possible disuse syndrome or an i (more content not included)... Normal [facility] Comment on above: Result Comment: Elec tronically Signed By: Kristofer SCHUSTER, Haider Bee\.br\Date and Time Signed: 11/04/24 11:42 EST U [facility]al[facility] 10-24-2024 Albumin DL <= 20 mg/L (U) [Mass/Vol] 4.0 mg/dL High 0.0-1.9 [facility] Comment on above: Performed By: #### 1 [id number] #### [facility] [address] [place] [address] Ambulatory Visit Summaryon 0 10-15-2024 Ambulatory Visit [...] Is Your Medications List [facility] Prescription (Eric Prather, 5 years.) [...] 30 mg Tab) potassium chloride (Potassium Chloride (Eyc-Iftu-Pge M20) 20 mEq oral tablet, extended release) [...] Appointments 2024 10:40 AM EST With: Where: [address] [address] 2024 10:30 AM EST With: Kristofer SCHUSTER, Haider Bee Where: [address] [address]- 2024 8:00 AM EDT With: Where: [address] [address]- Monday 9:15 AM EDT With: AIDAN SCHUSTER, Araceli Treadwell Where: [facility] [address], [address] [place] [address]- Medications What How Much When [...] 1 Tablets (more content not included)... Normal [facility] Family Medicine Office/Clini c Noteon 10-15-2024 Family [...] Diff Comprehe (more content not included)... Normal [facility] Comment on above: Result Comment: Elec tronically Signed By: Kristofer SCHUSTER, Haider Bee\.br\Date and Time Signed: 10/15/24 13:10 EST CMPon 09-10-2024 Albumin [Mass/Vol] 4.3 g/dL Normal 3.3-5.0 [facility] Comment on above: Performed By: #### 2 [id number] #### [facility] [address] [place] [address] Albumin/Globulin (S) [Mass conc ratio] 1.7 Normal 1.1-2.2 [facility] Comment on above: Performed By: #### 2 [id number] #### [facility] [address] [place] [address] ALP [Catalytic activity/Vol] 73 Int._Unit/L Normal 21-98 [facility] Comment on above: Performed By: #### 2 [id number] #### [facility] [address] [place] [address] ALT No additional P-5'-P [Catalytic activity/Vol] 23 Int._Unit/L Normal 6-46 [facility] Comment on above: Performed By: #### 2 [id number] #### [facility] [address] [place] [address] Anion gap [Moles/Vol] 12 mmol/L Normal 6-16 [facility] Comment on above: Performed By: #### 2 [id number] #### [facility] [address] [place] [address] AST [Catalytic activity/Vol] 25 Int._Unit/L Normal 5-43 [facility] Comment on above: Performed By: #### 2 [id number] #### [facility] [address] [place] [address] Bilirubin [Mass/Vol] 0.5 mg/dL Normal 0.0-1.1 [facility] Comment on above: Performed By: #### 2 [id number] #### [facility] [address] [place] [address] Calcium [Mass/Vol] 9.2 mg/dL Normal 8.9-11.1 [facility] Comment on above: Performed By: #### 2 [id number] #### [facility] [address] [place] [address] Chloride [Moles/Vol] 108 mmol/L Normal 101-111 [facility] Comment on above: Performed By: #### 2 [id number] #### [facility] [address] [place] [address] CO2 [Moles/Vol] 26 mmol/L Normal 21-31 [facility] Comment on above: Performed By: #### 2 [id number] #### [facility] [address] [place] [address] Creatinine [Mass/Vol] 1.3 mg/dL Normal 0.5-1.3 [facility] Comment on above: Performed By: #### 2 [id number] #### [facility] [address] [place] [address] Globulin (S) [Mass/Vol] 2.5 g/dL Normal 1.4-4.0 [facility] Comment on above: Performed By: #### 2 [id number] #### [facility] [address] [place] [address] Glucose [Mass/Vol] 137 mg/dL Normal 55-199 [facility] Comment on above: Performed By: #### 2 [id number] #### [facility] [address] [place] [address] Potassium [Moles/Vol] 4.7 mmol/L Normal 3.5-5.3 [facility] Comment on above: Performed By: #### 2 [id number] #### [facility] [address] [place] [address] Protein [Mass/Vol] 6.8 g/dL Normal 6.0-7.8 [facility] Comment on above: Performed By: #### 2 [id number] #### [facility] [address] [place] [address] Sodium [Moles/Vol] 141 mmol/L Normal 135-145 [facility] Comment on above: Performed By: #### 2 [id number] #### [facility] [address] [place] [address] Urea nitrogen [Mass/Vol] 28 mg/dL High 5-21 [facility] Comment on above: Performed By: #### 2 [id number] #### [facility] [address] [place] [address] Urea nitrogen/Creatinine [Mass ratio] 22 No Units High 10-20 [facility] Comment on above: Performed By: #### 2 [id number] #### [facility] [address] [place] [address] Magnesiumon 12-03-2024 Magnesium [Mass/Vol] 1.8 mg/dL Normal 1.3-2.4 [facility] Comment on above: Performed By: #### 2 [id number] #### [facility] [address] [place] [address] eGFRon 09-10-2024 eGFR 57 mL/min/1.73 m2 Low >=59 [facility] Comment on above: Performed By: #### 1 [id number] #### [facility] [address] [place] [address] Family Medicine Office/Clini c Noteon 09-09-2024 Family [...] involvement and proprioceptive complications. Consider assessment at [facility] for balance and gait evaluation. [...] manage morbid obesity. Possible consultation with a powerhouse mechanic helper for weight management strategies. Ordered: Body Mass [...] is fro (more content not included)... Normal [facility] Comment on above: Result Comment: [...] at 6.25mg BID. Follow-up 2-3 months. THanks [facility] Ambulatory Visit Summaryon 1 10-15-2023 Ambulatory Visit [...] This Is Your Medications List Misc Prescription (Handicap Yamilka, 5 years.) acarbose (acarbose [...] 30 mg Tab) potassium chloride (Potassium Chloride (Lmr-Bhyn-Akz M20) 20 mEq oral tablet, extended release) [...] EST With: Kristofer SCHUSTER, Haider Bee Where: [address] [address] 2024 8:00 AM EDT With: Where: [address] [address]- Monday 9:15 AM EDT With: AIDAN SCHUSTER, Araceli Treadwell Where: [facility] [address], [address] [place] [address]- Medications What How Much When Why Instructions [...] Every day Unchanged potassium chloride (Potassium Chloride (Cxu-Lnmm-Rhc M20) 20 mEq oral tablet, extended release) 1 Tablets By Mouth Every day Unchanged pregabalin (Lyrica 75 mg Cap) 1 Capsules By Mouth 2 times a day Unchanged simvastatin (simvastatin 40 mg Tab) 1 Tablets (more content not included)... Normal [facility] Family Medicine Office/Clini c Noteon 08-15-2024 Family [...] BID, # 60 cap(s), Refills(s) 1, Pharmacy: [id number]/pharmacy #[id number], 169, cm, 08/15/24 10:34:00 EST, [...] interactions b (more content not included)... Normal [facility] Comment on above: Result Comment: Elec tronically Signed By: Kristofer SCHUSTER, Haider Bee\.br\Date and Time Signed: 08/15/24 11:26 EST Ksenia 08-14-2024 CNOV Office Visit (NPRC21 ) DONG WHITMORE ([id number]) 1950 Date Time Provider Department 08/14/24 10:00 AM CHIQUI ROBLES NPRC21 During your visit today, we recorded the following information about you: Pulse Respiration Blood pressure Weight 59/minute 16/minute 137/69 117.2 kg Claudia Chilel MD 08/14/2024 10:51 AM Signed THE [facility] Neurological Speed August 14, 2024 This is a face [...] Chiqui Robles MD 08/26/2024 4:34 PM Addendum [facility] STAFF PHYSICIAN NOTE OF PERSONAL INVOLVEMENT IN [...] - psychotherapy was utilized during the visit. Djhn-vb-ymah time: 21995 (16-37 mins) actual time spend in psychotherapy 18 minutes Type of therapeutic intervention:Supportiv e Target symptoms: Pain coping skills and Acceptance and adapting Progress/Session notes:processing Interactive Complexity: None STAFF PHYSICIAN:: Chiqui Robles MD DATE of SERVICE: 08/14/2024 Referring Provider: CHIQUI ROBLES [[id number]] Allergies As of Date: 08/14/2024 Noted Allergy [...] [E66.813, E66.01, Z68.41] Order(s):PROVIDER ORDERED FOLLOW UP [[id number]] Order #: [id number]: 1 Prescriptions as of 08/26/2024 - pregabalin (LYRICA) 75 mg capsule Take 75 mg by mouth two times a day. - memantine (NAMENDA) (more content not included)... Normal [facility] Office Visiton 08-07-2024 Follow-up visit [id number] Dong Whitmore 1950 M Date Provider Department Center 08/07/2024 [id number] [place] Family History Problem Relation Age of Onset Coronary artery disease Other Diabetes Other Family Status - Relation Status Age at Other Level of Service:[address] [place] OFFICE/OUTPATIENT ESTABLISHED MOD MDM 30 MIN Reason for Visit and Comments: Hypertension [809202] - He brought BP log from home with him today. Readings are usually in the 130-140's systolic. Hyperlipidemia [182] Coronary Artery Disease [187] - Denies chest pain and SOB. Normal [facility] Ambulatory Visit Summaryon 1 Ambulatory Visit Summary [...] 30 mg Tab) potassium chloride (Potassium Chloride (Fuj-Bhzu-Kgh M20) 20 mEq oral tablet, extended release) [...] AM EST With: Haider Hickman MD Where: [address] [address]- Monday 3:30 PM EST With: Haider Hickman MD Where: [address] [address] 2024 8:00 AM EDT With: Where: [address] [address]- Monday 9:15 AM EDT With: Araceli BERMUDEZ MD Where: [facility] [address] [place] [address]- Someone Will Contact You Regarding These Appointments [facility] External Ambulatory Referral, Neurology, 08/01/24 12:15:00 EDT, Suicidal ideation Unspecified mononeuropathy of right lower limb BMI 40.0-44.9, adult Morbid obesity with body mass index (BMI) of 40.0 or higher Nonsmoker Medications What How Much When Why Instructions New pregabalin (Lyrica 75 mg Cap) 1 Capsules By Mouth 2 times a day Pickup at [facility]/pharmacy #6177 Changed tizanidine (tiZANidine 4 mg Tab) 4 Milligram By Mouth Every 8 hours Pickup at [facility]/pharmacy #6177 Changed venlafaxine (venlafaxine 75 mg Tab) 1 Tablets By Mouth 2 times a day Pickup at [facility]/pharmacy #6177 Unchanged acarbose (acarbose 25 mg [...] 1 Table (more content not included)... Normal [facility] Family Medicine Office/Clini c Noteon 08-01-2024 Family [...] E&M of Est. Patient High 40-54 Min 12051 [facility] External Ambulatory Referral Prolonged OV 15 min 49331 2. Unspecified mononeuropathy of right lower limb [...] E&M of Est. Patient High 40-54 Min 51411 [facility] External Ambulatory Referral Prolonged OV 15 min 99570 3. BMI 40.0-44.9, adult (Z68.41: Body mass index [BMI] 40.0-44.9, adult) Discussed the importance of lifestyle changes, including dietary modifications and physical activity, to manage BMI. Addressed the potential contributions of morbid obesity to peripheral neuropathic symptoms. Ordered: Body Mass Index (BMI) documented 3008F Current tobacco non-user 1036F Depression Screening Positive 3354F E&M of Est. Patient High 40-54 Min 20767 Fall Risk Screen 2 or more w/injury 1100F [facility] External (more content not included)... Normal [facility] Comment on above: Result Comment: [...] other machine again): L sitting 175/112 Normal [facility] Telephoneon 07-23-2024 Telephone [id number] Dong Whitmore 1950 M Date Provider Department Center 07/23/2024 928-BRITNEY MURPHY DAL[facility] Family History Problem Relation Age of Onset Coronary artery disease Other Diabetes Other Family Status - Relation Status Age at Other [facility] Office Visiton 07-19-2024 Follow-up visit [id number] Dong Whitmore 1950 M Date Provider Department Center 07/19/2024 3848-FIDELINACLIFELAINE NOBLE DALTON [facility] Family History Problem Relation Age of Onset Coronary artery disease Other Diabetes Other Family Status - Relation Status Age at Other Level of Service:18759 [place] OFFICE/OUTPATIENT ESTABLISHED MOD MDM 30 MIN [facility] Ambulatory Visit Summaryon 1 Ambulatory Visit Summary [...] Primary Care Physician - Kristofer SCHUSTER, Haider Davenport. This Is Your Medications List sodium bicarbonate [...] 30 mg Tab) potassium chloride (Potassium Chloride (Onj-Mlea-Vtp M20) 20 mEq oral tablet, extended release) [...] EST With: Kristofer SCHUSTER, Haider Bee Where: [address] [address]- Monday 10:30 AM EST With: AIDAN SCHUSTER, Araceli Treadwell Where: [facility] [address], [address] [place] [address] 2024 8:00 AM EDT With: Where: [address] [place] [address]- Monday 9:15 AM EDT With: Araceli BERMUDEZ MD Where: [facility] [address], [address] [place] [address]- You Need to Schedule the Following Appointments Follow Up with Araceli BERMUDEZ MD, URL When: Where: [address] [facility] [address] [place] [address]- Medications What How Much When Why Instructions Unchanged sodium bicarbonate (sodium bicarbonate 650 mg Tab) 2 Tablets By Mouth 3 times a day Duration: 90 Days Pickup at [facility]/pharmacy #3370 Unchanged acarbose (acarbose 25 mg oral tablet) [...] years.) Se (more content not included)... Normal [facility] Reminderson 07-17-2024 Reminders Reminders From: Roya Álvarez To: PREM - Bia Bermudez; Sent: 07/17/2024 10:05:54 EDT Show up: 05/17/2025 10:05:00 EDT Subject: Renal US Due Date/Time: 05/17/2025 10:05:00 EDT Reminder Message Renal US to be done prior to 1 year appointment. [facility]. Order created today. Macario [facility] Urology Office/Clinic Noteon 07-17-2024 Urology Office/Clinic Note Urology Office/Clinic Note Chief Complaint follow up HPI Staff 73 yo male here for f/up with renal US. Previous dx: kidney stone, complex renal cyst, BPH w/ LUTS, impotence. Taking Sodium Bicarb 650mg tid. Renal US 10/31/23 TB. KUB 11/10/23 TB - no stones id'd. S/p cysto, R RPG, R ESWL 01/04/24. Renal US 01/24/24 [facility] - neg limited renal ultrasound. Renal US 07/04/24 [facility] - 1.3 cm cyst involving the upper [...] with voice recognition artificial intelligence software, specifically [employer] and or [employer]. Substitutions may have occurred due to the [...] RPG, R ESWL 01/04/24. Renal US 01/24/24 [facility] - neg limited renal ultrasound. Renal US [...] MD, URL [address] [place] [id number]- Additional Instructions: 1 year w/ renal US Patient Education Dietary Guidelines to Help Prevent Kidney Stones I, Roya Álvarez, personally scribed for Dr. Bermudez on 07/17/2024 10:05:06 (more content not included)... Normal [facility] Comment on above: Result Comment: Elec tronically Signed By: Araceli BERMUDEZ MD\.br\Date and Time Signed: 07/17/24 10:09 EDT\.br\Electronically Co-Signed By: Roya Álvarez\.br\Date and Time Co-Signed: 07/17/24 10:05 EDT Office Visiton 06-26-2024 Follow-up visit [id number] Dong Whitmore 1950 M Date Provider Department Center 06/26/2024 Yung-MARY APARICIO Family History Problem Relation Age of Onset Coronary artery disease Other Diabetes Other Family Status - Relation Status Age at Other Level of Service:55110 [place] OFFICE/OUTPATIENT ESTABLISHED MOD MDM 30 MIN Reason for Visit and Comments: Coronary Artery Disease [187] Hypertension [547684] Normal [facility] XR Foot - right 3 [facility] Result: [facility] Radiology Study observation (narrative) [facility] No Panel Informationon 06-12 Chelle Brandon NP [...] and draped in the usual sterile fashion. [facility] Ambulatory Visit Summaryon 0 05-31-2024 [...] Is Your Medications List [facility] Prescription (Eric Prather, 5 years.) [...] 30 mg Tab) potassium chloride (Potassium Chloride (Ugj-Hauk-Prs M20) 20 mEq oral tablet, extended release) [...] Araceli BERMUDEZ MD Where: [facility] [address], [address] [place] [address]- Monday 3:30 PM EST With: Haider Hickman MD Where: [address] [address]- Monday 10:30 AM EST With: Araceli BERMUDEZ MD Where: [facility] [place] [address], [address] [place] [address] 2024 8:00 AM EDT With: Where: [facility] [address] [address]- Medications What How Much When Why Instructions [...] Unchanged nitrog (more content not included)... Normal [facility] Family Medicine Office/Clini c Noteon [...] 10 days Encouraged to leave the are [employer] f/u with pcp after seen at wound clinic Ordered: clindamycin, 300 mg = 1 cap(s), Oral, BID, X 10 day(s), # 20 cap(s), Refills(s) 0, Pharmacy: [facility]/pharmacy #6177, 169, cm, 05/22/24 14:52:00 EDT, [...] day(s), # 20 cap(s), Refills(s) 0, Pharmacy: [facility]/pharmacy #6177, 169, cm, 05/22/24 14:52:00 EDT, Height/Length Dosing, 122, kg, 05/22/24 14:52:00 EDT, Weight Dosing 3. Non-smoker (Z78.9: Other specified health status) Encouraged to continue as a non-smoker Ordered: clindamycin, 300 mg = 1 cap(s), Oral, BID, X 10 day(s), # 20 cap(s), Refills(s) 0, Pharmacy: [facility]/pharmacy #6177, 169, cm, 05/22/24 14:52:00 EDT, [...] Oral, BID (more content not included)... Normal [facility] Comment on above: Result Comment: [...] Is Your Medications List [facility] Prescription (Eric Prather, 5 years.) [...] 30 mg Tab) potassium chloride (Potassium Chloride (Lsp-Grkv-Rug M20) 20 mEq oral tablet, extended release) [...] AM EDT With: Kajal Cam DPM Where: [facility] [place] Monday 9:15 AM EDT With: Araceli BERMUDEZ MD Where: [facility] [address], [address] [place] [address]- Monday 3:30 PM EST With: Kristofer SCHUSTER, Haider Bee Where: [address] [address]- Monday 10:30 AM EST With: Araceli BERMUDEZ MD Where: [facility] [place] [address], [address] [place] [address]24 8:00 AM EDT With: Where: [address] [address]- Medications What How Much When Why Instructions New clindamycin (clindamycin 300 mg oral cap) 1 Capsules By Mouth 2 times a day Cellulitis of leg BMI 40.0-44.9, adult Non-smoker Class 3 severe obesity due to excess calories with body mass index (BMI) of 40.0 to 44.9 in adult Duration: 10 Days Pickup at [facility]/pharmacy #4013 Unchanged acarbose (acarbose 25 mg oral tablet) [...] times a day Unchanged Misc Prescription (Handicap Yamlika, 5 years.) See instructions Stage 3a chronic [...] Unchanged nitroglyce (more content not included)... Normal [facility] Family Medicine Office/Clini c Noteon [...] [facility] next week. Debra Bermudez 05/13/2024 9:39 EDT Advance Directive FT Advance Directive : Yes Type of Advance Directive : Living will, Medical durable power of estate planning attorney Organ Donation Consent : Yes Debra Bermudez 05/13/2024 9:39 EDT Procedures / Surgeries FT [...] Last Reviewed Dt/Tm: 05/13/2024 09:44:11 EDT Location: [facility] ; Anesthesia Minutes: 0 ; Procedure Name: [...] 05/13/2024 09:44:11 (more content not included)... Normal [facility] Comment on above: Result Comment: Elec tronically Signed By: Haider Hickman MD.br\Date and Time Signed: 05/14/24 10:23 EDT\.br\Electronically Co-Signed By: Debra Bermudez.br\Date and Time Co-Signed: 05/13/24 13:04 EDT CNOVon 04-24-2024 CNOV Office Visit (NPRC21 ) DONG WHITMORE ([id number]) 1950 M Date Time Provider Department 04/24/24 9:00 AM CHIQUI ROBLES NPRC21 During your visit today, we recorded the following information about you: Pulse Blood pressure Weight Height 61/minute 122/89 122.5 kg 1.702 m Parish Rios MD 04/24/2024 11:26 AM Signed THE [facility] April 24, 2024 This is a face [...] Camacho Desimir, MD 04/24/2024 11:26 AM Signed [facility] STAFF PHYSICIAN NOTE OF PERSONAL INVOLVEMENT IN CARE IMPRESSION: Complex regional pain syndrome Adjustment Disorder Tried multiple injections, procedures, surgeries. No benefit Tried SCS and recently DRG without success. Discussed ketamine PLAN: Ketamine infusions Consider scrambler therapy Psych psychology Memantine 5mg Psychotherapy Add-on Progress Note Due to medical condition and comorbid psychological and behavioral concerns - psychotherapy was utilized during the visit. Gavx-wz-xewb time: 12309 (16-37 mins) actual time spend in psychotherapy [...] which included preparing to see the patient, aupv-sw-dlsp patient care, completing clinical documentation, performing a medically appropriate examination, and counseling and educating the patient/family/caregiv er. As noted, the patient's clinical situation is complex and serious with significant comorbidity of pain and functional limitations. This requires higher levels of time, intensity, and expense with longitudinal care and support. STAFF PHYSICIAN:: Chiqui Robles MD DATE of SERVICE: 04/24/2024 Referring Provider: HERBERTH ARAUJO [[id number]] Allergies As of Date: 04/24/2024 Noted Allergy [...] TO [facility] (CHRONIC PAIN) [4981933] Order #: [id number]: 1 PAIN RECOVERY FOLLOW UP ORDER [[id number]] Order #: [id number]: 1 FUTURE PROVIDER ORDERED FOLLOW UP [[id number]] Order #: [id number]: 1 FUTURE memantine (NAMENDA) 5 mg tabletTake 1 tablet by mouth once daily.Disp: 30 tabletRfl: 3 CONSULT TO KETAMINE FOR CHRONIC PAIN [9044] Order #: [id number]: 1 FUTURE Prescriptions as of 04/24/2024 - memantine (NAMENDA) 5 mg tablet Take 1 tablet by mouth once daily. - aspirin, enteric coated (ASPIRIN, ENTERIC COATED) 81 mg EC tablet Take 81 mg by mouth once daily. - fi (more content not included)... Normal [facility] BRIEF OP NOTon 04-03-2024 BRIEF OP NOT HNO ID: [id number] Author: CAPRICE DOWNING MD Service: Pain Management Author Type: Fellow Type: Brief Op Note Filed: 04/03/2024 10:35 Note Text: BRIEF OPERATIVE / PROCEDURE NOTE LOG ID: [id number] SURGERY/PROCEDURE DATE: 04/03/2024 PROCEDURE START TIME: 09 PROCEDURE END TIME: 1030 PRE-OP/PRE-PROCEDURE DIAGNOSIS: Chronic toe pain, right foot [M79.674, G89.29] Complex regional pain syndrome type II of right lower limb [G57.71] POST-OP/POST-PROCEDURE DIAGNOSIS: Chronic toe pain, right foot [M79.674, G89.29] Complex regional pain syndrome type II of right lower limb [G57.71] SURGEON(S)/PROCEDURALI ST(S) AND PERSONNEL PLACEMENT SPECIALIST(S): Surgeon(s) and Role: * Herberth Araujo MD, PhD - Primary * Caprice Downing MD No Additional Staff SURGERY/PROCEDURE(S): Attempted Right L4 and L5 Dorsal Root Ganglion Stimulator ANESTHESIA: Anxiolysis and Local anesthetic FINDINGS: None ESTIMATED BLOOD LOSS: Minimal SPECIMENS: None COMPLICATIONS: None Caprice Downing MD Pain Medicine Fellow April 03, 2024 Normal [facility] NURSING PROGon 04-03-2024 NURSING PROG HNO ID: [id number] Author: CAYETANO ROSALES RN Service: Nursing Author Type: Registered Nurse Type: Nursing Progress Note Filed: 04/08/2024 15:32 Note Text: Summary: Follow up phone call Follow up phone call made regarding outcome of procedure. No answer voicemail left - The patient was instructed to call [phone] with the percentage of pain relief and what activities have improved. [employer] message also sent. [facility] NURSING PROG HNO ID: [id number] Author: SURINDER LARES RN Service: Nursing Author Type: Registered Nurse Type: Nursing Progress Note Filed: 04/09/2024 10:09 Note Text: Summary: Post Procedure Call Patient left voice mail. Team was unable to finish procedure due to patient was unable to stay still. No pain relief noted. Surinder Lares RN April 09, 2024 [facility] NURSING PROG HNO ID: [id number] Author: EMILEE HYDE, DENISE Service: ? Author Type: Registered Nurse Type: Nursing Progress Note Filed: 04/03/2024 10:45 Note Text: Dr. Marian Downing (fellow) discusses reason why procedure was aborted today. Other options for pain management was discussed with patient and . Normal [facility] OPERATIVE NOon 04-03-2024 OPERATIVE NO HNO ID: [id number] Author: HERBERTH ARAUJO MD, PhD Service: Pain Management Author Type: Physician Type: Operative Report Filed: 04/03/2024 20:14 Note Text: OPERATIVE/PROCEDURE REPORT : LOG ID: [id number] SURGERY/PROCEDURE DATE: 04/03/2024 INCISION/PROCEDURE START TIME: 9:59 [...] Dorsal Root Ganglion Stimulator SURGEON(S)/PROCEDURALI ST(S) AND PERSONNEL PLACEMENT SPECIALIST(S): Surgeon(s) and Role: * Herberth Araujo MD, [...] program. ELECTRONIC SIGNATURE, Herberth Araujo MD, PhD [facility] HISTORY PHYSICALon HISTORY PHYSICAL HNO ID: [id number] Author: HERBERTH ARAUJO MD, PhD Service: Pain Management Author Type: Physician Type: H&P Filed: 04/03/2024 09:33 Note Text: PROCEDURE EVALUATION AND HISTORY AND PHYSICAL EXAM SUBJECTIVE: Dong Whitmore is a 73 year old man who presents to [facility] for Right L4 and L5 Dorsal Root Ganglion Stimulator Trial. This is his first (1) procedure. Focused Review of Systems: PAIN: Denies any contraindications to the procedure including coagulopathy, infection, recent cerebral/myocardial infarct, and hemodynamic instability. 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 Current Outpatient [...] in the patient's condition since the last [address] [facility] visit: No Provisional Diagnosis: Chronic toe pain, right foot [M79.674, G89.29] Complex regional pain syndrome type II of right lower limb [G57.71] Planned Procedure: Right L4 and L5 Dorsal Root Ganglion Stimulator Trial Caprice Downing MD Pain Medicine Fellow April 03, 2024 Herberth Araujo MD, PhD Normal [facility] NURSING PROGon 04-01-2024 NURSING PROG HNO ID: [id number] Author: GILBERTO BAUTISTA RN Service: ? Author [...] 2 hours before the appointment. 2. A regional refrigerated cdl truck driver must be present who can drive you home. If you are coming by medical transport, you must have a responsible person other than the mill and coal transport operator with you. 3. Do you take any [...] or cannot make the appointment by calling [phone] (Option 2). Normal [facility] Ambulatory Visit Summaryon 0 03-26-2024 Ambulatory Visit [...] Is Your Medications List [facility] Prescription (Eric Prather, 5 years.) furosemide (Lasix 40 mg Tab) potassium chloride (Potassium Chloride (Bam-Bsrq-Yid M20) 20 mEq oral tablet, extended release) [...] 9:30 AM EDT With: Where: [facility] Invalid Interpretation Code [address], [address] [place] [address]- \.br \ Monday 2:15 PM EST \.br\ With: Kristofer SCHUSTER, Haider Bee\.br\ Where: [facility] Family Medicine Office/Clini c Noteon 03-26-2024 Family [...] years., Suppl (more content not included)... Normal [facility] Comment on above: Result Comment: [...] numbers. This can be done either in [place] or metric measurements. Note that charts and online BMI calculators are available to help you find your BMI quickly and easily without having to do these calculations yourself. To calculate your BMI in [place] ([place] measurements: 1. Measure your weight in [...] for Disease Control and Prevention: www.cdc.gov ? [place] Heart Association: www.heart.org ? National Heart, Lung, and Blood Speed: www.nhlbi.nih.gov Summary ? Body mass index (BMI) is a number that is calculated from a person's weight and height. ? BMI may help estimate how much of a person's weight is composed of fat. BMI can help identify those who may be at higher risk for certain medical problems. ? BMI can be measured using Afghan measurements or metric measurements. ? BMI charts are used to identify whether you are underweight, normal weight, overweight, or obese. This information is not intended to replace advice given to you by your health care provider. Make sure you discuss any questions you have with your health care provider. Document Revised: 06/17/2020 Document Reviewed: 04/24/2020 Magnetic Patient Education ? 2022 [employer]. [facility] Sona 03-19-2024 JACEY Telephone (PAINMN) DONG WHITMORE ([id number]) 1950 M Date Time Provider Department 03/19/24 HERBERTH ARAUJO During your visit today, we recorded the following information about you: Emilee So, DENISE 03/19/2024 1:32 PM Signed Spoke with patient at request of accountant auditor as patient has questions about referral to infectious disease. Patient states that he spoke with his PCP, Dr. Hickman ([phone]) who spoke with Dr. Vega in Infectious disease at [facility]. Dr. Hickman ordered lab work at [...] 03/21/24 Normal [facility] BMPon 03-08-2024 Anion gap [Moles/Vol] 14 mmol/L Normal - [facility] Comment on above: Performed By: #### 2 [id number] #### [facility] [address] [place] [address] Calcium [Mass/Vol] 9.4 mg/dL Normal 8.9-11.1 [facility] Comment on above: Performed By: #### 2 [id number] #### [facility] [address] [place] [address] Chloride [Moles/Vol] 104 mmol/L Normal 101-111 [facility] Comment on above: Performed By: #### 2 [id number] #### [facility] [address] [place] [address] CO2 [Moles/Vol] 24 mmol/L Normal - [facility] Comment on above: Performed By: #### 2 066072 #### [facility] [address] [place] [address] Creatinine [Mass/Vol] 1.5 mg/dL High 0.5-1.3 [facility] Comment on above: Performed By: #### 2 808303 #### [facility] [address] [place] [address] Glucose [Mass/Vol] 109 mg/dL Normal 55-199 [facility] Comment on above: Performed By: #### 2 957697 #### [facility] [address] [place] [address] Potassium [Moles/Vol] 4.2 mmol/L Normal 3.5-5.3 [facility] Comment on above: Performed By: #### 2 773681 #### [facility] [address] [place] [address] Sodium [Moles/Vol] 138 mmol/L Normal 135-145 [facility] Comment on above: Performed By: #### 2 [id number] #### [facility] [address] [place] [address] Urea nitrogen [Mass/Vol] 26 mg/dL High 5-21 [facility] Comment on above: Performed By: #### 2 779104 #### [facility] [address] [place] [address] Urea nitrogen/Creatinine [Mass ratio] 17 No Units Normal 10-20 [facility] Comment on above: Performed By: #### 2 299370 #### [facility] [address] [place] [address] Consent for Treatmenton 02-08 Consent for Treatment [id number] Normal [facility] [id number] 03-08-2024 HbA1c (Bld) [Mass fraction] 6.5 % High <=5.9 [facility] Comment on above: Performed By: #### 7 [id number] #### [facility] [address] [place] [address] eGFRon 03-08-2024 eGFR 48 mL/min/1.73 m2 Low >=59 [facility] Comment on above: Order Comment: Order added by Discern Expert. Performed By: #### 1 [id number] #### [facility] [address] [place] [address] Ambulatory Visit Summaryon 0 03-07-2024 Ambulatory Visit [...] With: Kristofer SCHUSTER, Haider Bee Where: [facility] [place] Invalid Interpretation Code [address] [place] [address]- \.br \ Monday 9:15 AM EDT \.br\ With: Araceli BERMUDEZ MD\.br\ Where: [facility] Family Medicine Office/Clini c Noteon 03-07-2024 Family Medicine Office/Clinic Note HPI Staff Dong is a 73 year old male presenting for infection right leg referral to infectious disease and possible cultures called with info as she's not sure she'll be with her at this appt He was seen at [facility] and is having drg?? end of [...] Ordered: Basic Metabolic Panel Blood Culture Charcoal [facility] External Ambulatory Referral HgbA1c 2. Stage 3a chronic kidney disease (N18.31: Chronic kidney disease, stage 3a) - Will recheck today. - No concerns Ordered: Basic Metabolic Panel Blood Culture Charcoal [facility] External Ambulatory Referral HgbA1c 3. Stasis ulcer (I83.009: Varicose veins of unspecified lower extremity with ulcer of unspecified site) - Most likely the cause of number 1. - No ulcer today Ordered: Basic Metabolic Panel Blood Culture Charcoal [facility] External Ambulatory Referral HgbA1c 4. Morbid obesity with body mass index of 40.0-44.9 in adult (E66.01: Morbid (severe) obesity due to excess calories) - Diet and exercise advsied Ordered: Basic Metabolic Panel Blood Culture Charcoal Body Mass Index (BMI) documented 3008F Current tobacco non-user 1036F Depression Screening Negative 3352F [facility] External Ambulatory Referral HgbA1c Influenza immunization administered [...] Ordered: Basic Metabolic Panel Blood Culture Charcoal [facility] External Ambulatory Referral HgbA1c 6. BMI 40.0-44.9, [...] diabetic neuropathy Complex (more content not included)... [facility] Comment on above: Result Comment: Elec tronically Signed By: Kristofer SCHUSTER, Haider Sandhu.br\Date and Time Signed: 03/07/24 11:12 EDT Physician Referralon 024 Physician Referral [id number]#1. 00TIFF [facility] CNOVon 02-29-2024 CNOV Office Visit (PAINMN ) DONG WHITMORE ([id number]) 1950 M Date Time Provider Department 02/29/24 1:30 PM HERBERTH ARAUJO PAINMN During your visit today, we recorded the following information about you: Temperature Pulse Blood pressure Weight 97.4 degrees 62/minute 138/73 122.5 kg Height 1.702 m Herberth Araujo MD, PhD 03/18/2024 7:05 PM Signed [facility] Pain Management Department New Patient Consultation Referring Physician: SELF Chief Complaint: Right third toe pain SUBJECTIVE: Dong Whitmore is a 73 year old male with a pertinent past medical history of diabetes who presents to [facility] Pain Management Center for the evaluation of right third toe pain. 15-year history of right third toe pain. He notes that over this time the pain has become increasingly severe has caused him significant discomfort and suffering. He has been to many specialists in the [facility] area-over the course of the past 15 [...] included)... Normal [facility] Reminderson 02-09-2024 Reminders - From: Vandana Hilton [...] DONG WHITMORE; Caller Number: H , B [phone] Addendum by Sharla Longoria on January 30, 2024 13:43:59 EDT Called pt and advised him of below message. Pt voiced understanding. Pt scheduled for 07/17/24 w/ TERRIE. Will send to [facility] recall for TERRIE. Addendum by Araceli BERMUDEZ MD on January 29, 2024 18:12:03 EDT From: Araceli BERMUDEZ MD To: EU - Clinical; Sent: 01/29/2024 18:12:03 EDT Subject: RE: f/u after ESWL -Order for Renal US sent to Caller Name: DONG WHITMORE; Caller Number: H , B [phone] Please let the patient know that the [...] DONG WHITMORE; Caller Number: H , B [phone] Pt s/p R ESWL 01/03, to get [...] DONG WHITMORE; Caller Number: H , B [phone] Addendum by Nan Hodges MA on January 19, 2024 12:33:50 EDT From: Nan Hodges MA (EU - Pending Results) To: EU - RUPERT/Cook Messages & Refills; Sent: 01/19/2024 12:33:50 EDT Subject: RE: f/u after ESWL -Order for Renal US sent to Due Date/Time: 01/25/2024 12:33:00 EDT Caller Name: DONG WHITMORE; Caller Number: H , B [phone] Scheduled 01/24/24 @ [facility] From: Elena Robbins To: EU - Pending Results; Sent: 01/08/2024 09:17:33 EDT Subject: f/u after ESWL -Order for Renal US sent to Due Date/Time: 01/17/2024 09:17:00 EDT Caller Name: DONG WHITMORE; Caller Number: H , B [phone] Pt is PO R ESWL 01/03 - he is to get renal US in 2 weeks and call for results if we don't contact him 1st - order sent to [facility] Soan 02-06-2024 CNPN Telephone (DENICE) DONG WHITMORE ([id number]) 1950 M Date Time Provider Department 02/06/24 FRANCOISE SINGLETARY During your visit today, we recorded the following information about you: Lela Hyatt RN 02/06/2024 10:46 AM Signed ----- Message from Francoise Singletary MD sent at 02/05/2024 3:12 PM EDT ----- Do you mind calling him and giving him the number to schedule at [facility] to discuss DRG? I'd suggest seeking an appointment with the following doctors who perform DRG implantation: Dr. Carlisle, Dr. Araujo, Dr. Dan, Dr. Moo Heard and Dr. Kamara may do DRG - I'm not sure. Thanks Llea! ----- Message ----- From: Livia Lester PA-C Sent: 02/05/2024 2:07 PM EDT To: Francoise Singletary MD No one on this side of [facility] that I know of does DRG so, we also send to [facility] I would just have Lela call [...] I know who do DRG are at [facility]. How do we refer him [...] Lester PA-C 02/13/2024 12:08 PM Signed Dong Haim has been released from the care of [...] Encounter Status:Closed by LELA HYATT on 02/06/24 [facility] CNOVon 02-05-2024 CNOV Office Visit (DENICE ) DONG WHITMORE ([id number]) 1950 M Date Time Provider Department 02/05/24 11:30 AM FRANCOISE SINGLETARY During your visit today, we recorded the following information about you: Pulse Blood pressure Weight 80/minute 131/70 124.7 kg Francoise Singletary MD 02/05/2024 3:14 PM Signed [facility] Pain Management Department Consultation Date: February [...] The patient has seen other pain providers. [facility] Neurology OV 02/01/22 Assessment and Plan 71 [...] year old (more content not included)... Normal [facility] US Renalon 01-26-2024 US Renal Exam Date/Time: [...] MD Transcribed by: GREGORIO Technologist: HW [facility] Consent for Treatmenton 01-07 Consent for Treatment [id number]#1.0 0TIFF [facility] Consultation Noteon 01-22-20 Consultation Note [id number]#1.0 0TIFF [facility] Consultation Note [id number]#1.0 0TIFF [facility] IntraOperative Documentson 0 01-08-2024 IntraOperative Documents [id number]#1.0 0TIFF [facility] Postoperative Documentson Postoperative Documents [id number]#1. 00TIFF [facility] Consent for Anesthesiaon Consent for Anesthesia [id number]#1. 00TIFF [facility] Discharge Instructionson Discharge Instructions [id number]#1. 00TIFF Normal [facility] IntraOperative Documentson 0 01-05-2024 IntraOperative Documents [id number]#1. 00TIFF Normal [facility] IntraOperative Documents [id number]#1. 00TIFF [facility] Main OR Intraoperative Recor don 01-05-2024 Main OR Intraoperative Record IntraOp Document Type FT Summary Primary Physician: Araceli BERMUDEZ MD Finalized Date/Time: 01/05/24 12:41:56 Pt. Name: DONG WHITMORE/Sex: 1950 Male Med Rec #: [id number] Physician: Araceli BERMUDEZ MD Financial #: [id number] Pt. Type: A Room/Bed: [place] [address] Admit/Disch: 01/04/24 06:41:12 - 01/04/24 12:00:26 Institution: [...] Loja Role Performed Anesthesiologist Surgeon - Primary Synoptic Meteorologist - Primary Casing Material Weigher Time In 01/04/24 09:07:00 01/04/24 09:07:00 01/04/24 [...] Surgeon AIDAN SCHUSTER, Araceli BERMUDEZ MD, Araceli Bojorquez 01/04/24 09:20:00 01/04/24 09:20:00 Stop 01/04/24 09:40:00 [...] and tissue Entry 1 Skin Integrity Intact, [place], Warm, and Skin (more content not included)... Normal [facility] Preoperative Documentson Preoperative Documents [id number]#1. 00TIFF [facility] Progress Note-Physicianon Progress Note-Physician Patient: DONG WHITMORE [...] meets criteria ( To home ). Normal [facility] Comment on above: Result Comment: [...] Problems Vitamin D deficiency / SNOMED CT 15919045 / Confirmed Urgency of urination / SNOMED CT 734228623 / Confirmed Type 2 diabetes mellitus with hyperglycemia, without long-term current use of insulin / ICD-10-CM E11.65 / Confirmed Type 2 diabetes mellitus with peripheral vascular disease / SNOMED CT 557619959 / Confirmed linked DM with PVD per OP CDI policy. Type 2 diabetes mellitus with stage 3a chronic kidney disease and hypertension / SNOMED CT 704753349 / Confirmed linked DM with CKD and HTN per OP CDI policy. 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 Shoulder pain / SNOMED CT 95939601 / Confirmed Renal mass / SNOMED CT 883681354 / Confirmed Psoriasis / SNOMED CT 06924169 / Confirmed PVD (peripheral vascular disease) / SNOMED CT 0430169492 / Confirmed OA (osteoarthritis) / SNOMED CT 8589252176 / Confirmed ULISES (obstructive sleep apnea) / SNOMED CT 706027858 / Confirmed SANTANA (nonalcoholic steatohepatitis) / SNOMED CT 9723440378 / Confirmed Lumbar spondylosis / SNOMED CT 524101212 / Confirmed noted in 10/16/2023 Pain Management Consult Note page 3. added per OP CDI policy. Impotence / SNOMED CT 3611141029 / Confirmed History of kidney stones / SNOMED CT 7529608546 / Confirmed Hiatal hernia / SNOMED CT 339530857 / Confirmed GERD (gastroesophageal reflux disease) / SNOMED CT 165379660 / Confirmed Nerves / SNOMED CT 7156172552 / Confirmed Primary hypertension / SNOMED CT 71799959 / Confirmed Anticoagulated / SNOMED CT 329577958 / Confirmed Complex renal cyst / SNOMED CT 2418685848 / Confirmed Chronic painful diabetic neuropathy / SNOMED CT 4850936514 / Confirmed noted in 10/16/2023 Pain Management Consult Note page 3. added per OP CDI policy. Pain, foot, right, chronic / SNOMED CT 4857931761 / Confirmed noted in 10/16/2023 Pain Management Consult Note page 3. added per OP CDI policy. Chronic bilateral low back pain without sciatica / SNOMED CT 522893860 / Confirmed Stage 3a chronic kidney disease / SNOMED CT 0307950804 / Confirmed Excessive dietary caloric intake / SNOMED CT 713710779 / Confirmed Morbid obesity with body mass index of 40.0-44.9 in adult / SNOMED CT 9755884281 / Confirmed BPH with obstruction/lower urinary tract symptoms / SNOMED CT 9083023929 / Confirmed Anxiety / SNOMED CT 68173130 / Confirmed Allergic rhinitis / SNOMED CT 328650112 / Confirmed Acquired absence of right great toe / SNOMED CT 561256143 / Confirmed added per 07/24/2023 query response. Resolved: Neuropathy / SNOMED CT 0921322611 idiopathic chronic Resolved: Hyperlipidemia / SNOMED CT 77635098 Resolved: Depressed mood / SNOMED CT 421220461 Resolved: Amputation of toe of right foot / ICD-10-CM S98.131A Resolved: BPH - benign prostatic hyperplasia / SNOMED CT 1943136838 Resolved: Anxiety disorder / SNOMED CT 481958875 Canceled: Microscopic hematuria / SNOMED CT 700558759 Canceled: Kidney stone / IMO 14671 Canceled: Hypertension / SNOMED CT 8040093180 Canceled: HLD (hyperlipidemia) / SNOMED CT 35904386 Canceled: Glycosuria / SNOMED CT 18817786 Canceled: Diabetes / SNOMED CT 576868201 Histories Procedure history: TOE AMPUTATION on 11/16/2018 at 68 Years. Cysto, Lt retrogrades, Lt stent, Ureteral cath, Lt ESWL ([id number]) on 06/07/2018 at 67 Years. Comments: 06/21/2019 14:34 EDT - Marilynn Zhang MA Cysto, Lt retr (more content not included)... Normal [facility] Comment on above: Result Comment: Elec tronically Signed By: Gavino Cortés DO, Arlen Nur\.br\Date and Time Signed: 01/05/24 09:04 EDT [...] mGy = na DAP = na Normal [facility] Capillary Glucose POCon 12-08 Glucose [Mass/Vol] 133 mg/dL High 55-99 [facility] Comment on above: Performed By: #### 2 [id number] #### [facility] Laboratory [address] [place] [address] Consent for Procedure/Surger yon 01-04-2024 Consent for Procedure/Surgery [id number]#1. 00TIFF [facility] Consent for Treatmenton 12-08 Consent for Treatment [id number]#1.0 0TIFF [facility] Discharge Instructionson Discharge Instructions DONG WHITMORE :1950 [...] Araceli BERMUDEZ MD Where: [facility] Invalid Interpretation Code [address] [place] [address]- \.br \ Monday 9:30 AM EDT \.br\ With:\.br\ Where: [facility] Comment on above: Result Comment: Elec tronically Signed By: Rakel Barney RN\.br\Date and Time Signed: 01/04/24 10:37 EDT H&P Updateon 01-04-2024 H&P Update [id number]#1. 00TIFF Normal [facility] Inpatient Patient Summaryon 01-04-2024 Inpatient Patient Summary [address] [address] [facility] Clinical Discharge Instructions PERSON INFORMATION Name: DONG WHITMORE PHYSICIANS Admitting Physician: Araceli BERMUDEZ MD Attending Physician: Araceli BERMUDEZ MD PCP: Haider Hickman MD Discharge Diagnosis: Comment: PATIENT EDUCATION INFORMATION Instructions: Lithotripsy, Care After Medication Leaflets: Follow up: With: Address: When: Araceli BERMUDEZ [address] [place] [address], [address], [address] [address] Business (1) Comments: Please call [...] for follow-up With: Address: When: [place] [address] [facility] [address] Business (1) Type Location Start Finish State URO Office Visit [facility] [place] 03/13/2024 9:45 AM 03/13/2024 10:00 AM Confirmed FM Open [facility] Jessie 03/26/2024 2:15 PM 03/26/2024 2:30 PM Confirmed FM Medicare Wellness Subsequent [facility] Jessie 05/13/2024 9:30 AM 05/13/2024 10:30 AM Confirmed URO Office Visit [facility] [place] 11/06/2024 10:30 AM 11/06/2024 10:45 AM Confirmed MEDICATION LIST New Medications [id number], [address] [place], [place] [address], [phone] acetaminophen-hydrocod one (acetaminophen-hydroco done 325 mg-5 mg [...] Tablets By Mouth every day. Comment: Macario [facility] Main OR PACU I Recordon 12-08 Main OR PACU I Record PACU Phase I Document Type FT Summary Primary Physician: Araceli BERMUDEZ MD Finalized Date/Time: 01/04/24 10:17:21 Pt. Name: DONG WHITMORE Boom Ann/Sex: 1950 Male Med Rec #: [id number] Physician: Araceli BERMUDEZ MD Financial #: [id number] Pt. Type: A Room/Bed: [facility] Admit/Disch: 01/04/24 06:41:12 - Institution: [...] By: Sangita Ross RN 01/04/24 10:17 Normal [facility] Main OR PACU II Recordon Main OR PACU II Record PACU Phase II Document Type FT Summary Primary Physician: Araceli BERMUDEZ MD Finalized Date/Time: 01/04/24 12:01:26 Pt. Name: HAIMDONG/Sex: 1950 Male Med Rec #: [id number] Physician: Araceli BERMUDEZ MD Financial #: [id number] Pt. Type: A Room/Bed: [place] [address] Admit/Disch: 01/04/24 06:41:12 - 01/04/24 12:00:26 Institution: [...] By: Rakel Barney RN 01/04/24 12:01 Normal [facility] Main OR Preoperative Recordo n 01-04-2024 Main OR Preoperative Record PreOp Document Type FT Summary Primary Physician: Araceli BERMUDEZ MD Finalized Date/Time: 01/04/24 09:57:43 Pt. Name: DONG WHITMORE/Sex: 1950 Male Med Rec #: [id number] Physician: Araceli BERMUDEZ MD Financial #: [id number] Pt. Type: A Room/Bed: [facility]/ Admit/Disch: 01/04/24 06:41:12 - Institution: [...] Signed By: Sim Ling 01/04/24 09:57 Normal [facility] Monitor Recordon 01-04-2024 Monitor Record [id number]#1. 00TIFF Normal [facility] Operative Reporton Operative Report Patient: DONG WHITMORE Age: 73 years Sex: Male : 1950 Associated Diagnoses: None Author: Araceli BERMUDEZ MD Postoperative Information Date/ Time: 01/04/2024 10:03:00 Postoperative Diagnosis: Right renal calculus . Performed by: Araceli Bermudez MD.. Findings: Procedure: Cystoscopy Right retrograde pyelogram ESWL [...] placed per urethra and a well-lubricated 22 Croatian is urethroscope with 30 degree lens then [...] pyelogram was then performed utilizing a 6 Croatian open-ended ureteral catheter. The ureter is normal [...] keep the stone in view. Utilizing the [employer] lithotripter, 1500 shocks were given up to 3.2 power level per protocol. Difficult to tell whether there was good stone fragmentation or not secondary to the patient's body habitus and the fact that this may be a uric acid calculus. He tolerates it well. Upon completion of the procedure the ureteral catheter was removed and he was transferred to the [place] and then back to PACU in satisfactory condition, stable vital signs. Plan to be for discharge home with plans for a follow-up kidney ultrasound within the next couple weeks. Prescription sent to pharmacy for doxycycline for antibiotic prophylaxis as well as 7 pills of [place] 5/325. She was in agreement with the plan. . Estimated Blood Loss: 0 ml. Complications: None. Anesthesia type: General. Normal [facility] Comment on above: Result Comment: Elec tronically Signed By: Araceli BERMUDEZ MD\.br\Date and Time Signed: 01/04/24 10:09 EDT Outpatient Surgery Discharge Instructionon 01-04-2024 Outpatient Surgery Discharge Instruction [place] [id number] Patient Discharge Instructions PERSON INFORMATION Name: DONG [...] Follow up: With: Address: When: Araceli BERMUDEZ [address] [place], [place] [address], [facility] [address], [address] [address] Business (1) Comments: Please call [...] for follow-up With: Address: When: [place] [address] [facility] [address] Business (1) Type Location Start Finish State URO Office Visit [facility] [place] 03/13/2024 9:45 AM 03/13/2024 10:00 AM Confirmed FM Open [facility] FM Jessie 03/26/2024 2:15 PM 03/26/2024 2:30 PM Confirmed FM Medicare Wellness Subsequent [facility] FM Jessie 05/13/2024 9:30 AM 05/13/2024 10:30 AM Confirmed URO Office Visit [facility] [place] 11/06/2024 10:30 AM 11/06/2024 10:45 [...] to serve you. Thank you for choosing [facility] HERE ARE THE MEDICATION CHANGES THAT OCCURRED DURING YOUR HOSPITAL STAY New Medications [id number], [address], [place] [id number], [phone] acetaminophen-hydrocod one (acetaminophen-hydroco done 325 mg-5 mg [...] care p (more content not included)... Normal [facility] PT - Progress Noteson 2023 PT - Progress Notes [id number]#1.0 0TIFF [facility] Patient Education - Texton 0 01-04-2024 Patient [...] these instructions at home: Medicines ? Take muvf-hgd-thywfrq and prescription medicines only as told by [...] forming. ? (more content not included)... Normal [facility] Physician Referralon 024 Physician Referral [id number]#1. 00TIFF Normal [facility] Physician Referral [id number]#1. 00TIFF Normal [facility] BMPon 12-29-2023 Anion gap [Moles/Vol] 13 mmol/L Normal 6-16 [facility] Comment on above: Performed By: #### 2 258473, 3849767, 28470456, 30732928 #### [facility] [address] [place] [address] Calcium [Mass/Vol] 9.1 mg/dL Normal 8.9-11.1 [facility] Comment on above: Performed By: #### 2 208576, 5527540, 58460475, 02161052 #### [facility] [address] [place] [address] Chloride [Moles/Vol] 106 mmol/L Normal 101-111 [facility] Comment on above: Performed By: #### 2 339658, 9724350, 65719491, 77490892 #### [facility] [address] [place] [address] CO2 [Moles/Vol] 25 mmol/L Normal 21-31 [facility] Comment on above: Performed By: #### 2 634588, 5308589, 00028167, 14747271 #### [facility] [address] [place] [address] Creatinine [Mass/Vol] 1.2 mg/dL Normal 0.5-1.3 [facility] Comment on above: Performed By: #### 2 252890, 1160014, 20106873, 08919628 #### [facility] [address] [place] [address] Glucose [Mass/Vol] 145 mg/dL Normal 55-199 [facility] Comment on above: Performed By: #### 2 040692, 5394452, 91900873, 19530576 #### [facility] [address] [place] [address] Potassium [Moles/Vol] 3.8 mmol/L Normal 3.5-5.3 [facility] Comment on above: Performed By: #### 2 975049, 7949416, 27396089, 16072007 #### [facility] [address] [place] [address] Sodium [Moles/Vol] 140 mmol/L Normal 135-145 [facility] Comment on above: Performed By: #### 2 455590, 7768310, 47225221, 25818135 #### [facility] [address] [place] [address] Urea nitrogen [Mass/Vol] 25 mg/dL High 5-21 [facility] Comment on above: Performed By: #### 2 050005, 4816944, 45786584, 32851544 #### [facility] [address] [place] [address] Urea nitrogen/Creatinine [Mass ratio] 21 No Units High 10-20 [facility] Comment on above: Performed By: #### 2 769394, 7195840, 75866128, 24905335 #### [facility] [address] [place] [address] CBC w/ Auto Diffon 4 Basophils/100 WBC (Bld) 0.5 % Normal 0.0-2.0 [facility] Comment on above: Performed By: #### 2 317994, 8820918, 00576119, 76074688 #### [facility] [address] [place] [address] Basophils/Leukocytes Auto (Bld) [Pure # fraction] 0.0 E9/L Normal 0.0-0.2 [facility] Comment on above: Performed By: #### 2 694567, 3985899, 90198594, 21720483 #### [facility] [address] [place] [address] Eosinophils (Bld) [#/Vol] 0.3 E9/L Normal 0.0-0.5 [facility] Comment on above: Performed By: #### 2 883815, 3675901, 61276471, 29344314 #### [facility] [address] [place] [address] Eosinophils/100 WBC (Bld) 5.7 % Normal 0.0-8.0 [facility] Comment on above: Performed By: #### 2 747787, 3941201, 84772616, 62094828 #### [facility] [address] [place] [address] Erythrocyte distribution width (RBC) [Ratio] 14.6 % High 10.9-14.2 [facility] Comment on above: Performed By: #### 2 996224, 5312396, 13015536, 81362462 #### [facility] [address] [place] [address] Hematocrit (Bld) [Volume fraction] 38.3 % Normal 37.7-49.0 [facility] Comment on above: Performed By: #### 2 507924, 1987049, 04777132, 09255461 #### [facility] [address] [place] [address] Hemoglobin (Bld) [Mass/Vol] 12.8 g/dL Low 13.5-17.5 [facility] Comment on above: Performed By: #### 2 714112, 0863700, 70148398, 64327583 #### [facility] [address] [place] [address] Lymphocytes (Bld) [#/Vol] 0.9 E9/L Low 1.0-4.0 [facility] Comment on above: Performed By: #### 2 156533, 1752319, 28020653, 09834771 #### [facility] [address] [place] [address] Lymphocytes/100 WBC (Bld) 17.1 % Normal 14.0-50.0 [facility] Comment on above: Performed By: #### 2 187105, 4146431, 11301333, 64744972 #### [facility] [address] [place] [address] MCH (RBC) [Entitic mass] 28.1 pg Normal 27.0-34.0 [facility] Comment on above: Performed By: #### 2 344300, 0713377, 51632253, 32079041 #### [facility] [address] [place] [address] MCHC (RBC) [Mass/Vol] 33.4 g/dL Normal 31.4-36.0 [facility] Comment on above: Performed By: #### 2 448411, 1469836, 08645052, 76123220 #### [facility] [address] [place] [address] MCV (RBC) [Entitic vol] 84.1 fL Normal 80.0-100.0 [facility] Comment on above: Performed By: #### 2 753787, 2777746, 81013382, 91613510 #### [facility] [address] [place] [address] Monocytes (Bld) [#/Vol] 0.4 E9/L Normal 0.2-1.0 [facility] Comment on above: Performed By: #### 2 775193, 3515473, 99203369, 69934680 #### [facility] [address] [place] [address] Neutrophils (Bld) [#/Vol] 3.9 E9/L Normal 2.0-7.5 [facility] Comment on above: Performed By: #### 2 368130, 0035193, 97313359, 60393920 #### [facility] [address] [place] [address] Neutrophils/100 WBC (Bld) 69.6 % Normal 36.0-75.0 [facility] Comment on above: Performed By: #### 2 224478, 3805081, 05851906, 28679673 #### [facility] [address] [place] [address] Platelet 178.0 E9/L Normal 150.0-500.0 [facility] Comment on above: Performed By: #### 2 156621, 0397620, 50100831, 25238412 #### [facility] [address], [place] [address] Platelet mean volume (Bld) [Entitic vol] 8.4 fL Normal 6.4-10.8 [facility] Comment on above: Performed By: #### 2 593053, 2744010, 08463483, [id number] #### [facility] [address] [place] [address] RBC (Bld) [#/Vol] 4.6 E12/L Normal 4.3-5.9 [facility] Comment on above: Performed By: #### 2 973387, 5507492, 05207060, 24081130 #### [facility] [address] [place] [address] WBC corrected for nucl RBC Auto (Bld) [#/Vol] 5.5 E9/L Normal 4.0-11.0 [facility] Comment on above: Performed By: #### 2 733261, 0526114, 08549981, 03623797 #### [facility] [address] [place] [address] Consent for Treatmenton 12-08 Consent for Treatment [id number]#1.0 0TIFF Normal [facility] PT & PTTon 12-29-2023 aPTT Coag (PPP) [Time] 35.7 second(s) Normal 25.1-36.5 [facility] Comment on above: Result Comment: [...] the same coagulation reagent and instrumentation as [facility]. Currently there are no coagulation studies available worldwide for children to 14 days, and no normal ranges. Heparin therapeutic range (represented by Anti-Factor Xa activity of 0.2 - 0.4 U/mL) corresponds to PTT of 56.6 - 109.0 sec. Performed By: #### 2 050026, 2843206, 82758171, 51115511 #### [facility] [address] [place] [address] INR Coag (PPP) [Relative time] 1.23 {INR} Invalid Interpretation Code [facility] Comment on above: Result Comment: INR results are specifically intended to assess patients stabilized on long-term Anticoagulation therapy suggested INR?s ?Less Intensive Anticoagulation? 2.0 ? 3.0 Conventional Range 3.0 ? 4.5 Performed By: #### 2 496542, 2332877, 93628302, [id number] #### [facility] [address] [place] [address] PT Coag (PPP) [Time] 13.8 second(s) High 9.4-12.5 [facility] Comment on above: Result Comment: [...] the same coagulation reagent and instrumentation as [facility]. Currently there are no coagulation studies available worldwide for children to 14 days, and no normal ranges. Performed By: #### 2 902565, 4338939, 79096579, 39506834 #### [facility] [address] [place] [address] UA with Cult Rflxon 12-29-19 24 Color (U) Light-Yellow Normal Yellow [facility] Comment on above: Result Comment: Micr oscopic readings are only performed on those samples that meet specific criteria set forth by [facility]. Performed By: #### 4 [id number] ####[facility] [address] [place] [address] Glucose (U) [Mass/Vol] Negative Normal Negative [facility] Comment on above: Performed By: #### 4 [id number] ####[facility] [address] [place] [address] Ketones Ql (U) Negative Normal Negative [facility] Comment on above: Performed By: #### 4 [id number] ####[facility] [address] [place] [address] UA Blood Negative Normal Negative [facility] Comment on above: Performed By: #### 4 [id number] ####[address] [address] UA Clarity Clear Normal Clear [facility] Comment on above: Performed By: #### 4 [id number] ####[address] [address] UA Leuk Est Negative Normal Negative [facility] Comment on above: Performed By: #### 4 [id number] ####[facility] [address] [place] [address] UA Nitrite Negative Normal Negative [facility] Comment on above: Performed By: #### 4 [id number] ####[facility] [address] [place] [address] UA pH 6.5 Invalid Interpretation Code 5.0-9.0 [facility] Comment on above: Performed By: #### 4 [id number] ####[facility] [address] [place] [address] UA Protein Trace Abnormal Negative [facility] Comment on above: Performed By: #### 4 [id number] ####[facility] [address] [place] [address] UA Spec Grav 1.021 Invalid Interpretation Code 1.005-1.030 [facility] Comment on above: Performed By: #### 4 [id number] ####[facility] [address] [place] [address] UA Urobilinogen Negative Normal Negative [facility] Comment on above: Performed By: #### 4 [id number] ####[facility] [address] [place] [address] Urobilinogen (U) [Mass/Vol] Negative Normal Negative [facility] Comment on above: Performed By: #### 4 [id number] ####[facility] [address] [place] [address] UA Spec Desc Clean Catch Normal [facility] Comment on above: Performed By: #### 4 [id number] ####[facility] [address] [place] [address] XR Chest 2 Viewson XR Chest 2 Views Exam Date/Time: 12/29/2023 09:35 EDT Reason for Exam: P.A.T. Report [facility] [phone] IMPRESSION: No acute infiltrates or effusions, no [...] mGy = na DAP = na Normal [facility] eGFRon 12-29-2023 eGFR 63 mL/min/1.73 m2 Normal >=59 [facility] Comment on above: Order Comment: Order added by Discern Expert. Performed By: #### 2 366316, 2026855, 80053166, 44544278 #### [facility] [address] [place] [address] Family Medicine Office/Clini c Noteon 12-28-2023 Family [...] pyelography (12/05/2016), ysto, (more content not included)... [facility] Comment on above: Result Comment: Elec tronically Signed By: Haider Hickman MD\.br\Date and Time Signed: 12/28/23 09:51 EDT Physician Orderon 12-28-2023 Physician Order [id number]#1.0 0TIFF [facility] Ambulatory Visit Summaryon 0 12-26-2023 Ambulatory Visit [...] SCHUSTER, Araceli Treadwell Where: [facility] Invalid Interpretation Code [address] [place] [address]- \.br \ Monday 9:30 AM EDT \.br\ With:\.br\ Where: [facility] CMPon 12-26-2023 Albumin [Mass/Vol] 4.2 g/dL Normal 3.3-5.0 [facility] Comment on above: Performed By: #### 2 136454, 2044106, 88759502, 7579068 ####[facility] [address] [place] [address] Albumin/Globulin (S) [Mass conc ratio] 1.6 Normal 1.1-2.2 [facility] Comment on above: Performed By: #### 2 915736, 9989106, 20700340, 4610346 ####[address] [address] ALP [Catalytic activity/Vol] 67 Int._Unit/L Normal 21-98 [facility] Comment on above: Performed By: #### 2 431400, 7377390, 25042557, 3430700 ####[address] [address] ALT No additional P-5'-P [Catalytic activity/Vol] 20 Int._Unit/L Normal 6-46 [facility] Comment on above: Performed By: #### 2 521570, 1677444, 24015725, 0820177 ####[address] [address] Anion gap [Moles/Vol] 10 mmol/L Normal 6-16 [facility] Comment on above: Performed By: #### 2 360954, 7498924, 37558904, 2013191 ####[facility] [address] [place] [address] AST [Catalytic activity/Vol] 21 Int._Unit/L Normal 5-43 [facility] Comment on above: Performed By: #### 2 698128, 0396176, 74870475, 5699284 ####[facility] [address] [place] [address] Bilirubin [Mass/Vol] 0.6 mg/dL Normal 0.0-1.1 [facility] Comment on above: Performed By: #### 2 344610, 4084564, 82029094, 2123203 ####[facility] [address] [place] [address] Calcium [Mass/Vol] 9.3 mg/dL Normal 8.9-11.1 [facility] Comment on above: Performed By: #### 2 420617, 8697300, 38086863, 0638717 ####[facility] [address] [place] [address] Chloride [Moles/Vol] 105 mmol/L Normal 101-111 [facility] Comment on above: Performed By: #### 2 791951, 7029940, 53067179, 7701181 ####[facility] [address] [place] [address] CO2 [Moles/Vol] 27 mmol/L Normal 21-31 [facility] Comment on above: Performed By: #### 2 859087, 1701279, 21532697, 9377721 ####[facility] [address] [place] [address] Creatinine [Mass/Vol] 1.3 mg/dL Normal 0.5-1.3 [facility] Comment on above: Performed By: #### 2 394819, 7864939, 82216066, 5668294 ####[facility] [address] [place] [address] Globulin (S) [Mass/Vol] 2.6 g/dL Normal 1.4-4.0 [facility] Comment on above: Performed By: #### 2 725178, 3202231, 32156465, 7178471 ####[facility] [address] [facility] [place] [address] Glucose [Mass/Vol] 135 mg/dL Normal 55-199 [facility] Comment on above: Performed By: #### 2 992871, 0807524, 76841885, 2592590 ####[facility] [address] [place] [address] Potassium [Moles/Vol] 4.1 mmol/L Normal 3.5-5.3 [facility] Comment on above: Performed By: #### 2 261191, 6691266, 45318828, 9820258 ####[facility] [address] [place] [address] Protein [Mass/Vol] 6.8 g/dL Normal 6.0-7.8 [facility] Comment on above: Performed By: #### 2 646774, 5777620, 02664935, 2334062 ####[facility] [address] [place] [address] Sodium [Moles/Vol] 138 mmol/L Normal 135-145 [facility] Comment on above: Performed By: #### 2 794628, 3855732, 65494985, 2753069 ####[facility] [address] [place] [address] Urea nitrogen [Mass/Vol] 27 mg/dL High 5-21 [facility] Comment on above: Performed By: #### 2 102440, 9862210, 33511783, 5770494 ####[facility] [address] [place] [address] Urea nitrogen/Creatinine [Mass ratio] 21 No Units High 10-20 [facility] Comment on above: Performed By: #### 2 270625, 2449235, 65750498, 0535537 ####[facility] [address] [place] [address] Lipid Panelon 12-26-2023 Cholesterol [Mass/Vol] 118 mg/dL Low 120-200 [facility] Comment on above: Performed By: #### 2 537491, 3693861, 68681084, 8394147 ####[facility] [address] [place] [address] Cholesterol in HDL [Mass/Vol] 33 mg/dL Invalid Interpretation Code [facility] Comment on above: Result Comment: '>= 60 LOW RISK' '<= 40 HIGH RISK' Performed By: #### 2 881075, 2809542, 08646813, 7666958 ####[facility] [address] [place] [address] Cholesterol in LDL [Mass/Vol] 57 mg/dL Normal <=129 [facility] Comment on above: Performed By: #### 2 980622, 6174721, 88754891, 0476120 ####[facility] [address] [place] [address] Cholesterol in VLDL [Mass/Vol] 45 mg/dL High 7-40 [facility] Comment on above: Performed By: #### 2 556144, 7507960, 32606875, 4737771 ####[facility] [address] [place] [address] Triglyceride [Mass/Vol] 225 mg/dL High <=149 [facility] Comment on above: Performed By: #### 2 418016, 7220820, 23450642, 3915064 ####[facility] [address] [place] [address] U Microalbon 12-26-2023 Albumin DL <= 20 mg/L (U) [Mass/Vol] 5.8 mg/dL High 0.0-1.9 [facility] Comment on above: Performed By: #### 1 033186217, 04964551 ####[facility] [address] [place] [address] U Protein/Creat Ratioon 12-07 Protein/Creatinine (U) [Ratio] 20.90 mg/gm Cr Normal .00-200.00 [facility] Comment on above: Performed By: #### 1 796300115, 55578008 ####[facility] [address] [place] [address] U Creatinine 99.4 mg/dL Invalid Interpretation Code [facility] Comment on above: Performed By: #### 1 005835947, 87397830 ####[facility] [address] [place] [address] Ur Total Protein 20.8 mg/dL Invalid Interpretation Code [facility] Comment on above: Performed By: #### 1 019523044, 91895093 ####[facility] [address] [place] [address] Vit B12on 12-26-2023 Cobalamin (Vitamin B12) [Mass/Vol] 348 pg/mL Normal 50-1500 [facility] Comment on above: Performed By: #### 2 262118, 6258202, 02161134, 7991646 ####[facility] [address] [place] [address] eGFRon 12-26-2023 eGFR 57 mL/min/1.73 m2 Low >=59 [facility] Comment on above: Order Comment: Order added by Discern Expert. Performed By: #### 2 198149, 6569383, 56757909, 0204452 ####[facility] [address] [place] [address] Pre-Visit Planningon 024 Pre-Visit Planning - From: Ceci Yu To: Kristofer SCHUSTER, Haider Bee; Sent: 12/20/2023 09:56:36 EDT Subject: Pre-Visit Planning Due Date/Time: 12/20/2023 09:56:00 EDT Caller Name: DONG WHITMORE; Caller Number: H , B [phone] In Dr. Hickman. During a pre-visit planning chart [...] feel free to contact me at extension [phone]. Thank you! 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 Normal [address] [place] [address] Consultation Noteon 12-08-19 24 Consultation Note [id number]#1.0 0TIFF Normal [facility] RAD - MISCon 11-14-2023 RAD - MISC [id number] 20 [id number]#1.0 0TIFF Normal [facility] RAD - Ultrasound Reporton RAD - Ultrasound Report [id number]#1.0 0TIFF Normal [facility] RAD - Ultrasound Report [id number]#1.0 0TIFF Normal [facility] RAD - MISCon 10-30-2023 RAD - MISC [id number]#1.00 TIFF Normal [facility] RAD - MRI Reporton RAD - MRI Report [id number]#1.00 TIFF Normal [facility] Screenson 10-20-2023 Screens [id number]#1. 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 8 oz (237 mL) of milk, ucnopaf-ovebnsxfknkp-j airy milk, and calcium-fortifiedfruit juice. Calcium-fortified means [...] Spinach (cooked), rhubarb, beets, sweet potatoes, and Norwegian chard. ? Peanuts. ? Potato chips, ethiopian fries, and baked potatoes with skin on. ? Nuts and nut products. ? Chocolate. ? If you regularly take a diuretic medicine, make sure to eat at least 1 or 2 servings of fruits or vegetables that are high in potassium each day. These include: ? Avocado. ? Banana. ? [place], prune, carrot, or tomato juice. ? Baked [...] fish oil, or vitamin B6. ? Take fsxl-auz-ornrccm and prescription medicines only as told by your health care provider. These include supplements. What foods sh (more content not included)... Normal [facility] Reminderson 10-18-2023 Reminders - From: Roya Álvarez To: PREM Bermudez; Sent: 10/18/2023 15:39:39 EST Show up: 08/18/2024 15:39:00 EST Subject: Renal US Due Date/Time: 09/17/2024 15:39:00 EST Pt needs scheduled for TERRIE prior to 1 year appointment. Being done at [facility]. order placed. Normal [facility] Urology Office/Clinic Noteon 10-18-2023 Urology [...] with voice recognition artificial intelligence software, specifically [employer] and or Tastemaker. Substitutions may have occurred due to the [...] Information AIDAN SCHUSTER, Araceli Treadwell, URL [address] [place] [address]- Additional Instructions: 1 year w/ renal [...] benign pr (more content not included)... 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 Review of Systems PHQ Score [...] with voice recognition artificial intelligence software, specifically [employer], [employer] and or Dragon Ambient Experience. Substitutions may have occurred due to the inherent limitations of voice recognition and artificial intelligence software. ATTESTATION: Documentation services were performed after patient or guardian consented to allow [employer] to record this visit. HEMANTH clinical quality assurance specialist and provider reviewed before signing. HEMANTH: [...] under fluo (more content not included)... Normal [facility] Comment on above: Result Comment: [...] SCHUSTER, Araceli Treadwell Where: [facility] Invalid Interpretation Code [address] [place] [id number]- \.br \ Monday 9:30 AM EDT \.br\ With:\.br\ Where: [facility] Consultation Noteon 09-18-20 Consultation Note [id number]#1.0 0TIFF Normal [facility] A1C with Estimated Average G luon 09-11-2023 HbA1c (Bld) [Mass fraction] 6.900 % High 4.3-5.6 % [employer] Other HbA1c (Bld) [Mass fraction] 151 mg/dL [facility] [employer] Other Glucose [Mass/Vol] 151 mg/dL Normal [facility] Comment on above: Order Comment: Reaso n for Exam 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 Performed By: #### A 1C [facility] eA #### [facility] [address] [place] [address] HbA1c (Bld) [Mass fraction] 6.9 % High 4.3-5.6 [facility] Comment on above: Order Comment: Reaso n for Exam Type 2 diabetes mellitus with diabetic chronic kidney diseas Result Comment: Incr eased risk for diabetes: 5.7 - 6.4 diabetes: >6.4 glycemic control for adults with diabetes: <7.0 Performed By: #### A 1C WT eA #### [facility] [address] Glucose - FINGER STICKon Glucose [Mass/Vol] 138 mg/dL [facility] [employer] Other Glucose mean value [Mass/vol ume] in Blood Estimated from glycated hemoglobinOrdered By: Aldo Middleton on 09-11-2023 Average glucose Estimated from glycated hemoglobin (Bld) [Mass/Vol] 151 mg/dL [facility] Hemoglobin A1c percentageOrd ered By: Aldo Middleton on 09-11-2023 HbA1c (Bld) [Mass fraction] 6.9 % 4.3-5.6 [facility] Comment on above: Increased risk for d iabetes: 5.7 - 6.4diabetes: >6.4glycemic control for adults with diabetes: <7.0 Consultation Noteon 09-06-20 Consultation Note [id number]#1.00 TIFF Normal [facility] Consultation Noteon 08-28-20 Consultation Note [id number]#1.00 TIFF Normal [facility] US UNI ankle/arm indiceson 1 10-24-2022 US UNI ankle/arm indices [facility] [place] [address] Ultrasound Report Signed Patient: Dong Whitmore MR#: [id number] : 1950 Acct:[id number] Age/Sex: 73 / M ADM Date: 08/24/23 Loc: [facility] Room: Type: [facility] Attending Dr: Eligio Soni MD Ordering Provider: [...] Eligio Soni MD08/24/2023 3:31 PM Dictation Location: [place] [address] Tech: Britney Sotelo Transcribed By: CIRO 08/24/23 1531 Dictated By: Eligio Soni MD 08/24/23 153 Signed By: 08/24/23 153 [facility] US venous duplex LE RTon US venous duplex LE RT [facility] [place] [address] Ultrasound Report Signed Patient: oDng Whitmore MR#: [id number] : 1950 Acct:[id number] Age/Sex: 73 / M ADM Date: 08/24/23 Loc: [facility] Room: Type: [facility] Attending Dr: Eligio Soni MD Ordering Provider: [...] Eligio Soni MD08/24/2023 3:31 PM Dictation Location: [place] [address] Tech: Coby Gibson Transcribed By: CIRO 08/24/231530 Dictated By: Eligio Soni MD 08/24/231530 Signed By: 08/24/231530 [facility] Ambulatory Visit Summaryon 1 10-21-2022 Ambulatory Visit [...] PM EST With: Haider Hickman MD Where: [facility] Invalid Interpretation Code [address], [address] [place] [address]- \.br \ Monday 9:30 AM EDT \.br\ With:\.br\ Where: [facility] Medicine Office/Clini c Noteon 08-21-2023 Family Medicine [...] kidney d (more content not included)... Normal [facility] Comment on above: Result Comment: [...] oz glass (more content not included)... Normal [facility] Pre-Visit Planningon 023 Pre-Visit Planning - From: Ceci Yu To: Kristofer SCHUSTER, Haider Bee; Sent: 08/17/2023 10:44:28 EST Subject: Pre-Visit Planning Due Date/Time: 08/17/2023 10:44:00 EST Caller Name: HAIM DONG Nur; Caller Number: H , B [phone] In Dr. Hickman. During a pre-visit planning chart [...] feel free to contact me at extension [phone]. Thank you! Ceci Yu LPN Invalid Interpretation Code [address] [facility] Consultation Noteon 08-10-20 Consultation Note [id number]#1.0 0TIFF Normal [facility] Family Medicine Office/Clini c Noteon [...] continue to monitor along. Ordered: A1c POC 29226 Body Mass Index (BMI) documented 3008F Current [...] disease) - As above Ordered: A1c POC 41059 Body Mass Index (BMI) documented 3008F Current [...] stage 3a) - Stable Ordered: A1c POC 25167 Body Mass Index (BMI) documented 3008F Current [...] - No new issues Ordered: A1c POC 42503 Body Mass Index (BMI) documented 3008F Current [...] - BMI education given Ordered: A1c POC 10365 Body Mass Index (BMI) documented 3008F Current [...] last ye (more content not included)... Normal [facility] Comment on above: Result Comment: [...] numbers. This can be done either in [place] ([place] or metric measurements. Note that charts and online BMI calculators are available to help you find your BMI quickly and easily without having to do these calculations yourself. To calculate your BMI in [place] ([place] measurements: 1. Measure your weight in [...] for Disease Control and Prevention: www.cdc.gov ? [place] Heart Association: www.heart.org ? National Heart, Lung, and Blood Speed: www.nhlbi.nih.gov Summary ? Body mass index (BMI) is a number that is calculated from a person's weight and height. ? BMI may help estimate how much of a person's weight is composed of fat. BMI can help identify those who may be at higher risk for certain medical problems. ? BMI can be measured using Afghan measurements or metric measurements. ? BMI charts are used to identify whether you are underweight, normal weight, overweight, or obese. This information is not intended to replace advice given to you by your health care provider. Make sure you discuss any questions you have with your health care provider. Document Revised: 06/17/2020 Document Reviewed: 04/24/2020 [employer] Patient Education ? 2022 [employer] [facility] Physician Referralon 023 Physician Referral [id number]#1. 00TIFF [facility] Pre-Visit Planningon 023 Pre-Visit Planning - From: Ceci Yu To: Haider Hickman MD; Sent: 07/24/2023 15:20:33 EDT Subject: Pre-Visit Planning Due Date/Time: 07/24/2023 15:20:00 EDT Caller Name: DONG WHITMORE; Caller Number: H , B [phone] In Dr. Hickman. During a pre-visit planning chart [...] feel free to contact me at extension [phone]. Thank you! Ceci Yu LPN From: Haider Hickman MD To: Ceci Yu; Sent: 07/24/2023 16:58:10 EDT Subject: RE: Pre-Visit Planning Caller Name: DONG WHITMORE; Caller Number: H , B [phone] OK to add the first one. Thank you Normal [address] [place] [address] A1C HEMOGLOBINon 02-14-2023 HbA1c (Bld) [Mass fraction] 7.6 % [employer] Other Glucose - FINGER STICKon Glucose [Mass/Vol] 215 mg/dL [employer] Other HbA1c (Bld) [Mass fraction]o n 02-14-[address] [facility] [employer] Other ECHOCARDIO M/2D COMPLETEon 0 12-30-2022 ECHOCARDIO M/2D COMPLETE Patient: DONG WHITMORE. Exam Date: 12/30/2022 : 1950 Gender:M Ordering : MARY APARICIO [facility] Admission #: [id number] Family : Order #: [id number] CLICK HERE TO VIEW EXAM ECHOCARDIOGRAM REPORT [...] Thibodeaux M.D. on 12/30/2022 at 18:49 Normal [facility] NM STRESS/REST MULTIon 12-29 NM STRESS/REST MULTI Patient: DONG WHITMORESuzie Exam Date: 12/29/2022 : 1950 Gender:M Ordering : MARY APARICIO [facility] Admission #: [id number] Family : Order #: [id number] CLICK HERE TO VIEW EXAM RADIOLOGY REPORT [...] Morales M.D. on 12/30/2022 at 09:41 Normal [facility] US MAMI DOP LEG RTon 12-09-19 [...] by: MORGAN ROJO Date: 2022-12-08 16:15 Normal [facility] TSHon 11-25-2022 TSH 2.370 uIU/mL Normal 0.358-3.740 [facility] Comment on above: Performed By: #### T #### [facility] [address] [address] [address] Eli Jarvis BNPon 11-08-2022 Natriuretic peptide B (Bld) [Mass/Vol] 122.0 pg/mL Normal <=900.0 [facility] Comment on above: Performed By: #### C MP, BNP #### [facility] [address] [address] [address] Eli Jarvis CBC AUTO DIFFon 11-08-2022 BASO # 0.1 103/ul Normal 0.0-0.1 [facility] Comment on above: Performed By: #### C BC ####[facility] [address] [address]DrSuzie Jarvis Basophils/100 WBC (Bld) 0.7 % Normal 0.2-2.0 [facility] Comment on above: Performed By: #### C BC ####[facility] [address] [place], [place] [address]Dr. Eli Jarvis EO # 0.2 103/ul Normal 0.0-0.7 [facility] Comment on above: Performed By: #### C BC ####[facility] [address] [address]Dr. Eli Jarvis Eosinophils/100 WBC (Bld) 3.5 % Normal 0.9-7.0 [facility] Comment on above: Performed By: #### C BC ####[facility] [address] [address]DrSuzie Jarvis Erythrocyte distribution width (RBC) [Ratio] 13.8 % Normal 11.0-15.0 [facility] Comment on above: Performed By: #### C BC ####[facility] [address] [address]DrSuzie Jarvis Hematocrit (Bld) [Volume fraction] 42.0 % Normal 42.0-54.0 [facility] Comment on above: Performed By: #### C BC ####[facility] [address] [place], [place] [address]DrSuzie Jarvis Hemoglobin (Bld) [Mass/Vol] 13.8 g/dL Critically low 14.0-18.0 [facility] Comment on above: Performed By: #### C BC ####[facility] [address] [id number]. Eli Jarvis IG # 0.03 10e3/ul Normal 0.00-0.03 [facility] Comment on above: Performed By: #### C BC ####[facility] [address] [id number]. Eli Jarvis IG % 0.4 % Normal 0.0-0.5 [facility] Comment on above: Performed By: #### C BC ####[facility] [address] [address]Dr. Eli Jarvis LYMPH # 1.3 103/ul Normal 1.2-3.8 [facility] Comment on above: Performed By: #### C BC ####[facility] [address] [address]Dr. Eli Jarvis Lymphocytes/100 WBC (Bld) 18.8 % Critically low 20.5-60.0 [facility] Comment on above: Performed By: #### C BC ####[facility] [address] [address]Dr. Eli Jarvis MANUAL DIFF REQ NO Normal [facility] Comment on above: Performed By: #### C BC ####[facility] [address] [id number]. Eli Jarvis MCH (RBC) [Entitic mass] 27.8 pg Normal 25.9-34.0 [facility] Comment on above: Performed By: #### C BC ####[facility] [address] [id number]. Eli Jarvis MCHC (RBC) [Mass/Vol] 32.9 g/dL Normal 29.9-35.2 [facility] Comment on above: Performed By: #### C BC ####[facility] [address] [address]Dr. Eli Jarvis MCV (RBC) [Entitic vol] 84.7 fL Normal 80.0-94.0 [facility] Comment on above: Performed By: #### C BC ####[facility] [address] [id number]. Eli Jarvis MONO # 0.6 103/ul Normal 0.3-0.8 [facility] Comment on above: Performed By: #### C BC ####[facility] [address] [id number]. Eli Jarvis Monocytes/100 WBC (Bld) 8.5 % Normal 1.7-12.0 [facility] Comment on above: Performed By: #### C BC ####[facility] [address] [id number]. Eli Jarvis NEUT # 4.7 103/ul Normal 1.4-6.5 [facility] Comment on above: Performed By: #### C BC ####[facility] [address] [place], [place] [address]Dr. Eli Jarvis Neutrophils/100 WBC (Bld) 68.1 % Normal 43.0-75.0 [facility] Comment on above: Performed By: #### C BC ####[facility] [address] [place], [place] [address]Dr. Eli Jarvis Platelet mean volume (Bld) [Entitic vol] 10.3 fL Normal 9.5-13.5 [facility] Comment on above: Performed By: #### C BC ####[facility] [address] [place], [place] [address]Dr. Eli Jarvis PLT 189 103/ul Normal 150-450 [facility] Comment on above: Performed By: #### C BC ####[facility] [address] [place], [place] [address]Dr. Eli Jarvis RBC 4.96 106/ul Normal 4.70-6.10 [facility] Comment on above: Performed By: #### C BC ####[facility] [address] [id number]. Eli Jarvis WBC 7.0 103/ul Normal 4.0-11.0 [facility] Comment on above: Performed By: #### C BC ####[facility] [address] [place], [place] [address]RnDr. Eli Jarvis PROF 14(COMP METB)on 023 Albumin [Mass/Vol] 3.6 g/dL Normal 3.4-5.0 [facility] Comment on above: Performed By: #### C MP, BNP #### [facility] [address] [address] [address] Eli Jarvis Albumin/Globulin [Mass ratio] 1.1 {ratio} Normal [facility] Comment on above: Performed By: #### C MP, BNP #### [facility] [address] [address] [address] Eli Jarvis ALP [Catalytic activity/Vol] 90 U/L Normal 46-116 [facility] Comment on above: Performed By: #### C MP, BNP #### [facility] [address] [address] [address] Eli Jarvis ALT [Catalytic activity/Vol] 42 U/L Normal 16-63 [facility] Comment on above: Performed By: #### C MP, BNP #### [facility] [address] [address] [address] Eli Jarvis Anion gap [Moles/Vol] 13.5 mmol/L Normal [facility] Comment on above: Performed By: #### C MP, BNP #### [facility] [address] [address] [address] Eli Jarvis AST [Catalytic activity/Vol] 26 U/L Normal 15-37 [facility] Comment on above: Performed By: #### C MP, BNP #### [facility] [address] [address] [address] Eli Jarvis Bilirubin [Mass/Vol] 0.4 mg/dL Normal 0.2-1.0 [facility] Comment on above: Performed By: #### C MP, BNP #### [facility] [address] [address] [address] Eli Jarvis Calcium [Mass/Vol] 9.3 mg/dL Normal 8.5-10.1 [facility] Comment on above: Performed By: #### C MP, BNP #### [facility] [address] [address] [address] Eli Jarvis Chloride [Moles/Vol] 104 mmol/L Normal 98-107 [facility] Comment on above: Performed By: #### C MP, BNP #### [facility] [address] [address] [address] Eli Jarvis CO2 [Moles/Vol] 25.7 mmol/L Normal 21.0-32.0 [facility] Comment on above: Performed By: #### C MP, BNP #### [facility] [address] [address] [address] Eli Jarvis Creatinine [Mass/Vol] 1.32 mg/dL Critically high 0.70-1.30 [facility] Comment on above: Performed By: #### C MP, BNP #### [facility] [address] [address] [address] Eli Jarvis EGFR-AF CITIZ[place] >60 Normal >=60 [facility] Comment on above: Performed By: #### C MP, BNP #### [facility] [address] [address] [address] Eli Jarvis EGFR-NON AF CITIZEN [place] 53 mL/min/1.73m2 Critically low >=60 [facility] Comment on above: Performed By: #### C MP, BNP #### [facility] [address] [address] [address] Eli Jarvis Globulin (S) [Mass/Vol] 3.3 g/dL Normal [facility] Comment on above: Performed By: #### C MP, BNP #### [facility] [address] [address] [address] Eli Jarvis Glucose [Mass/Vol] 154 mg/dL Critically high 74-106 [facility] Comment on above: Performed By: #### C MP, BNP #### [facility] [address] [address] [address] Eli Jarvis Potassium [Moles/Vol] 4.2 mmol/L Normal 3.5-5.1 [facility] Comment on above: Performed By: #### C MP, BNP #### [facility] [address] [address] [address] Eli Jarvis Protein [Mass/Vol] 6.9 g/dL Normal 6.4-8.2 [facility] Comment on above: Performed By: #### C MP, BNP #### [facility] [address] [address] [address] Eli Jarvis Sodium [Moles/Vol] 139 mmol/L Normal 136-145 [facility] Comment on above: Performed By: #### C MP, BNP #### [facility] [address] [address] [address] Eli Jarvis Urea nitrogen [Mass/Vol] 23.0 mg/dL Critically high 7.0-18.0 [facility] Comment on above: Performed By: #### C MP, BNP #### [facility] [address] [address] [address] Eli Jarvis Urea nitrogen/Creatinine [Mass ratio] 17.4 mg/mg Normal [facility] Comment on above: Performed By: #### C MP, BNP #### [facility] [address] [address] [address] Eli Jarvis A1C HEMOGLOBINon 11-07-2022 HbA1c (Bld) [Mass fraction] 7.6 % [facility] [employer] Other Glucose - FINGER STICKon Glucose [Mass/Vol] 172 mg/dL [employer] Other HbA1c (Bld) [Mass fraction]o n 11-07-2022 A1C HEMOGLOBIN [facility] [facility] [employer] Other US KIDNEYSon 2022 US KIDNEYS EXAMINATION: [...] a complex cyst Electronically authenticated by: MORGAN ORJO Date: 2022 18:30 Normal [facility] A1C HEMOGLOBINon 07-27-2022 HbA1c (Bld) [Mass fraction] 7.2 % [employer] Other Glucose - FINGER STICKon Glucose [Mass/Vol] 160 mg/dL [employer] Other HbA1c (Bld) [Mass fraction]o n 07-27-2022 A1C HEMOGLOBIN [employer] Other A1C HEMOGLOBINon 04-21-2022 HbA1c (Bld) [Mass fraction] 7.6 % [employer] Other Glucose - FINGER STICKon Glucose [Mass/Vol] 184 mg/dL [employer] Other HbA1c (Bld) [Mass fraction]o n 04-21-2022 A1C HEMOGLOBIN [employer] Other [employer] Creat Ratio,Uon Albumin DL <= 20 mg/L (U) [Mass/Vol] 10.5312148 mg/dL High 0.0-1.8 mg/dL [employer] Other Albumin/Creatinine DL <= 20 mg/L (U) [Mass ratio] 70.100709 mg/g High 0.0-30.0 mg/g [employer] Other Creatinine (U) [Mass/Vol] 117.6832164 mg/dL [employer] Other CBC AUTO DIFFon 06-30-2022 BASO # 0.0 103/ul Normal 0.0-0.1 [facility] Comment on above: Performed By: #### C BC #### [facility] [address] [place] [address] Dr. Eli Jarvis Basophils/100 WBC (Bld) 0.6 % Normal 0.2-2.0 [facility] Comment on above: Performed By: #### C BC #### [facility] [address] [place] [address] Dr. Eli Jarvis EO # 0.2 103/ul Normal 0.0-0.7 [facility] Comment on above: Performed By: #### C BC #### [facility] [address] [place] [address] Dr. Eli Jarvis Eosinophils/100 WBC (Bld) 2.9 % Normal 0.9-7.0 [facility] Comment on above: Performed By: #### C BC #### [facility] [address] [place] [address] Dr. Eli Jarvis Erythrocyte distribution width (RBC) [Ratio] 13.8 % Normal 11.0-15.0 [facility] Comment on above: Performed By: #### C BC #### [facility] [address] [place] [address] Dr. Eli Jarvis Hematocrit (Bld) [Volume fraction] 40.7 % Critically low 42.0-54.0 [facility] Comment on above: Performed By: #### C BC #### [facility] [address] [place] [address] Dr. Eli Jarvis Hemoglobin (Bld) [Mass/Vol] 13.3 g/dL Critically low 14.0-18.0 [facility] Comment on above: Performed By: #### C BC #### [facility] [address] [place] [address] Dr. Eli Jarvis IG # 0.04 10e3/ul Critically high 0.00-0.03 [facility] Comment on above: Performed By: #### C BC #### [facility] [address] [place] [address] Dr. Eli Jarvis IG % 0.6 % Critically high 0.0-0.5 [facility] Comment on above: Performed By: #### C BC #### [facility] [address] [place] [address] Dr. Eli Jarvis LYMPH # 1.3 103/ul Normal 1.2-3.8 [facility] Comment on above: Performed By: #### C BC #### [facility] [address] [place] [address] Dr. Eli Jarvis Lymphocytes/100 WBC (Bld) 18.7 % Critically low 20.5-60.0 [facility] Comment on above: Performed By: #### C BC #### [facility] [address] [place] [address] Dr. lEi Jarvis MANUAL DIFF REQ NO Normal [facility] Comment on above: Performed By: #### C BC #### [facility] [address] [place] [address] Dr. Eli Jarvis MCH (RBC) [Entitic mass] 28.1 pg Normal 25.9-34.0 [facility] Comment on above: Performed By: #### C BC #### [facility] [address] [place] [address] Dr. Eli Jarvis MCHC (RBC) [Mass/Vol] 32.7 g/dL Normal 29.9-35.2 [facility] Comment on above: Performed By: #### C BC #### [facility] [address] [place] [address] Dr. Eli Jarvis MCV (RBC) [Entitic vol] 86.0 fL Normal 80.0-94.0 [facility] Comment on above: Performed By: #### C BC #### [facility] [address] [place] [address] Dr. Eli Jarvis MONO # 0.4 103/ul Normal 0.3-0.8 [facility] Comment on above: Performed By: #### C BC #### [facility] [address] [place] [address] Dr. Eli Jarvis Monocytes/100 WBC (Bld) 6.2 % Normal 1.7-12.0 [facility] Comment on above: Performed By: #### C BC #### [facility] [address] [address] [address] Eli Jarvis NEUT # 4.9 103/ul Normal 1.4-6.5 [facility] Comment on above: Performed By: #### C BC #### [facility] [address] [address] [address] Eli Jarvis Neutrophils/100 WBC (Bld) 71.0 % Normal 43.0-75.0 [facility] Comment on above: Performed By: #### C BC #### [facility] [address] [address] [address] Eli Jarvis Platelet mean volume (Bld) [Entitic vol] 9.9 fL Normal 9.5-13.5 [facility] Comment on above: Performed By: #### C BC #### [facility] [address] [address] [address] Eli Jarvis PLT 184 103/ul Normal 150-450 [facility] Comment on above: Performed By: #### C BC #### [facility] [address] [address] [address] Eli Jarvis RBC 4.73 106/ul Normal 4.70-6.10 [facility] Comment on above: Performed By: #### C BC #### [facility] [address] [address] [address] Eli Jarvis WBC 6.9 103/ul Normal 4.0-11.0 [facility] Comment on above: Performed By: #### C BC #### [facility] [address] [address] [address] Eli Jarvis LIPID PROFILEon 04-07-2022 CHOL-HDL RATIO NORM SEE BELOW Normal [facility] Comment on above: Result Comment: 3.3 - 4.4 LOW RISK 4.4 - 7.1 AVERAGE RISK 7.1 - 11.0 MODERATE RISK >11.0 HIGH RISK Performed By: #### C MP, LIPID ####[facility] [address] [address]Dr. Eli Jarvis Cholesterol [Mass/Vol] 127 mg/dL Normal <=200 [facility] Comment on above: Performed By: #### C MP, LIPID ####[facility] [address] [id number]. Eli Jarvis Cholesterol in HDL [Mass/Vol] 36 mg/dL Critically low 40-60 [facility] Comment on above: Performed By: #### C MP, LIPID ####[facility] [address] [id number]. Eli Jarvis Cholesterol in LDL [Mass/Vol] 58.4 mg/dL Normal [facility] Comment on above: Performed By: #### C MP, LIPID ####[facility] [address] [address]Dr. Eli Jarvis Cholesterol.total/Ch olesterol in HDL [Mass ratio] 3.5 {ratio} Normal [facility] Comment on above: Performed By: #### C MP, LIPID ####[facility] [address] [id number]. Eli Jarvis HDL NORMAL > or = 60 mg/dl - LO W CARDIOVASCULAR RISK <40 mg/dl - HIGH CARDIOVASCULAR RISK Normal [facility] Comment on above: Performed By: #### C MP, LIPID ####[facility] [address] [id number]. Eli Jarvis LDL CALC NORMAL SEE BELOW Normal [facility] Comment on above: Result Comment: <100 mg/dl OPTIMAL 100 - 129 mg/dl NEAR OR ABOVE OPTIMAL 130 - 159 mg/dl BORDERLINE HIGH 160 - 189 mg/dl HIGH >190 mg/dl VERY HIGH Performed By: #### C MP, LIPID ####[facility] [address] [id number]. Eli Jarvis Triglyceride [Mass/Vol] 163 mg/dL Critically high <=150 [facility] Comment on above: Performed By: #### C MP, LIPID ####[facility] [address] [id number]. Eli Jarvis VLDL CALC 32.6 mg/dL Normal [facility] Comment on above: Performed By: #### C MP, LIPID ####[facility] [address] [address]Dr. Eli Jarvis PROF 14(COMP METB)on 022 Albumin [Mass/Vol] 3.8 g/dL Normal 3.4-5.0 [facility] Comment on above: Performed By: #### C MP, LIPID ####[facility] [address] [address]Dr. Eli Jarvis Albumin/Globulin [Mass ratio] 1.1 {ratio} Normal [facility] Comment on above: Performed By: #### C MP, LIPID ####[facility] [address] [address]Dr. Eli Jarvis ALP [Catalytic activity/Vol] 89 U/L Normal 46-116 [facility] Comment on above: Performed By: #### C MP, LIPID ####[facility] [address] [address]Dr. Eli Jarvis ALT [Catalytic activity/Vol] 43 U/L Normal 16-63 [facility] Comment on above: Performed By: #### C MP, LIPID ####[facility] [address] [address]Dr. Eli Jarvis Anion gap [Moles/Vol] 10.7 mmol/L Normal [facility] Comment on above: Performed By: #### C MP, LIPID ####[facility] [address] [address]Dr. Eli Jarvis AST [Catalytic activity/Vol] 24 U/L Normal 15-37 [facility] Comment on above: Performed By: #### C MP, LIPID ####[facility] [address] [address]Dr. Eli Jarvis Bilirubin [Mass/Vol] 0.2 mg/dL Normal 0.2-1.0 [facility] Comment on above: Performed By: #### C MP, LIPID ####[facility] [address] [address]Dr. Eli Jarvis Calcium [Mass/Vol] 9.1 mg/dL Normal 8.5-10.1 [facility] Comment on above: Performed By: #### C MP, LIPID ####[facility] [address] [address]Dr. Eli Jarvis Chloride [Moles/Vol] 104 mmol/L Normal 98-107 [facility] Comment on above: Performed By: #### C MP, LIPID ####[facility] [address] [address]Dr. Eli Jarvis CO2 [Moles/Vol] 27.5 mmol/L Normal 21.0-32.0 [facility] Comment on above: Performed By: #### C MP, LIPID ####[facility] [address] [place], [place] [address]Dr. Eli Jarvis Creatinine [Mass/Vol] 1.15 mg/dL Normal 0.70-1.30 [facility] Comment on above: Performed By: #### C MP, LIPID ####[facility] [address] [place], [place] [address]Dr. Eli Jarvis EGFR-AF CITIZ[place] >60 Normal >=60 [facility] Comment on above: Performed By: #### C MP, LIPID ####[facility] [address] [place], [place] [address]Dr. Eli Jarvis EGFR-NON AF CITIZEN OF [place] >60 Normal >=60 [facility] Comment on above: Performed By: #### C MP, LIPID ####[facility] [address] [address]Dr. lEi Jarvis Globulin (S) [Mass/Vol] 3.4 g/dL Normal [facility] Comment on above: Performed By: #### C MP, LIPID ####[facility] [address] [address]Dr. Eli Jarvis Glucose [Mass/Vol] 157 mg/dL Critically high 74-106 [facility] Comment on above: Performed By: #### C MP, LIPID ####[facility] [address] [address]Dr. Eli Jarvis Potassium [Moles/Vol] 4.2 mmol/L Normal 3.5-5.1 [facility] Comment on above: Performed By: #### C MP, LIPID ####[facility] [address] [place] [id number]. Eli Jarvis Protein [Mass/Vol] 7.2 g/dL Normal 6.4-8.2 [facility] Comment on above: Performed By: #### C MP, LIPID ####[facility] [address] [id number]. Eli Jarvis Sodium [Moles/Vol] 138 mmol/L Normal 136-145 [facility] Comment on above: Performed By: #### C MP, LIPID ####[facility] [address] [place] [id number]. Eli Jarvis Urea nitrogen [Mass/Vol] 26.0 mg/dL Critically high 7.0-18.0 [facility] Comment on above: Performed By: #### C MP, LIPID ####[facility] [address] [place] [id number]. Eli Jarvis Urea nitrogen/Creatinine [Mass ratio] 22.6 mg/mg Normal [facility] Comment on above: Performed By: #### C MP, LIPID ####[facility] [address] [id number]. Eli Jarvis A1C HEMOGLOBINon 10-21-2021 HbA1c (Bld) [Mass fraction] 6.6 % [employer] Other Glucose - FINGER STICKon Glucose [Mass/Vol] 169 mg/dL [employer] Other HbA1c (Bld) [Mass fraction]o n 10-21-2021 A1C HEMOGLOBIN [employer] Other Comprehensive Metabolic Pane deann 07-29-2021 Albumin [Mass/Vol] 3.9 g/dL 3.2-5.5 [employer] Other Albumin/Globulin [Mass ratio] 1.6 {ratio} [employer] Other ALP [Catalytic activity/Vol] 63 U/L 32-92 [facility] [employer] Other ALT [Catalytic activity/Vol] 32 U/L 10-60 [facility] [employer] Other AST [Catalytic activity/Vol] 32 U/L 10-42 [facility] [employer] Other Bilirubin [Mass/Vol] 0.5 mg/dL 0.3-1.2 [facility] [employer] Other Calcium [Mass/Vol] 9.7 mg/dL 8.2-10.2 [place] [employer] Other Chloride [Moles/Vol] 105 mmol/L 95-114 [facility] [employer] Other CO2 [Moles/Vol] 22.7 mmol/L 22.0-30.0 [facility] [employer] Other Creatinine [Mass/Vol] 1.28 mg/dL 0.64-1.27 [facility] [employer] Other Glucose [Mass/Vol] 111 mg/dL 70-100 [place] [employer] Other Potassium [Moles/Vol] 4.1 mmol/L 3.5-5.1 [place] [employer] Other Protein [Mass/Vol] 6.3 g/dL 6.1-7.9 [facility] [employer] Other Sodium [Moles/Vol] 139 mmol/L 136-146 [facility] [employer] Other Urea nitrogen [Mass/Vol] 23 mg/dL 9-23 [place] [employer] Other Comprehensive Metabolic Panel 55 [place] [employer] Other Comprehensive Metabolic Panel > 60 [facility] [employer] Other Comprehensive Metabolic Panel 2.4 [place] [employer] Other Hepatitis Acute Panelon 10-2 Hepatitis Acute Panel Negative Negative [place] [employer] Other Hepatitis Acute Panel <0.1 0.0-0.9 [facility] [employer] Other Vital Signs Date Time Vital Sign Value Performing Clinician Facility 10-17-2024 10:14-0500 Body height 165.1 cm Bassam Aguilar DPM Work Phone: [facility] 10-17-2024 10:14-0500 Body mass index (BMI) [Ratio] 45.93 kg/m2 Bassam Aguilar DPM Work Phone: [facility] 10-17-2024 10:14-0500 Body weight 125.19 kg Bassam Aguilar DPM Work Phone: [facility] 10-17-2024 10:14-0500 Respiratory rate 16 /min Bassam Aguilar DPM Work Phone: [facility] 08-29-2024 09:27-0500 Body mass index (BMI) [Ratio] 45.93 kg/m2 Christopher Lalo DO Work Phone: [facility] 08-29-2024 09:27-0500 Body weight 125.19 kg Christopher Lalo DO Work Phone: [facility] 08-29-2024 09:27-0500 Diastolic blood pressure 76 mm[Hg] Christopher Lalo DO Work Phone: [facility] 08-29-2024 09:27-0500 Heart rate 64 /min Christopher Lalo DO Work Phone: [facility] 08-29-2024 09:27-0500 SaO2% (BldA) [Mass fraction] 95 % Christopher Lalo DO Work Phone: [facility] 08-29-2024 09:27-0500 Systolic blood pressure 134 mm[Hg] Christopher Lalo DO Work Phone: [facility] 08-14-2024 09:59-0500 Body mass index (BMI) [Ratio] 40.46 kg/m2 Chiqui Robles MD Work Phone: [facility] 08-14-2024 09:59-0500 Body weight 117.2 kg Chiqui Robles MD Work Phone: [facility] 08-14-2024 09:59-0500 Diastolic blood pressure 69 mm[Hg] Chiqui Robles MD Work Phone: [facility] 08-14-2024 09:59-0500 Heart rate 59 /min hCiqui Robles MD Work Phone: [facility] 08-14-2024 09:59-0500 Respiratory rate 16 /min Chiqui Robles MD Work Phone: [facility] 08-14-2024 09:59-0500 SaO2% (BldA) [Mass fraction] 97 % Chiqui Robles MD Work Phone: [facility] 08-14-2024 09:59-0500 Systolic blood pressure 137 mm[Hg] Chiqui Robles MD Work Phone: [facility] 08-08-2024 09:32-0400 Body height 165.1 cm Bassam Aguilar DPM Work Phone: [facility] 08-08-2024 09:32-0400 Body mass index (BMI) [Ratio] 42.43 kg/m2 Bassam Aguilar DPM Work Phone: [facility] 08-08-2024 09:32-0400 Body weight 115.67 kg Bassam Aguilar DPM Work Phone: [facility] 08-08-2024 09:32-0400 Diastolic blood pressure 79 mm[Hg] Bassam Aguilar DPM Work Phone: [facility] 08-08-2024 09:32-0400 Heart rate 82 /min Bassam Aguilar DPM Work Phone: [facility] 08-08-2024 09:32-0400 Systolic blood pressure 128 mm[Hg] Bassam Aguilar DPM Work Phone: [facility] 08-06-2024 09:53-0400 Body height 165.1 cm Khai Heard DO Work Phone: [facility] 08-06-2024 09:53-0400 Body mass index (BMI) [Ratio] 42.43 kg/m2 Khai Heard DO Work Phone: [facility] 08-06-2024 09:53-0400 Body weight 115.67 kg Khai Heard DO Work Phone: [facility] 07-31-2024 10:20-0400 Body height 165.1 cm Shyam Dolce DPM FAC[employer]AS Work Phone: [facility] 07-31-2024 10:20-0400 Body mass index (BMI) [Ratio] 42.43 kg/m2 Shyam Dolce DPM [employer]AC[employer] Work Phone: [facility] 07-31-2024 10:20-0400 Body weight 115.67 kg Shyam Dolce DPM [employer]AC[employer] Work Phone: [facility] 07-31-2024 10:20-0400 Diastolic blood pressure 79 mm[Hg] Shyam Dolce DPM FAC[employer] Work Phone: [facility] 07-31-2024 10:20-0400 Heart rate 68 /min Shyam Dolce DPM FAC[employer] Work Phone: [facility] 07-31-2024 10:20-0400 Systolic blood pressure 128 mm[Hg] Shyam Dolce DPM FAC[employer]AS Work Phone: [facility] 07-24-2024 10:12-0400 Body height 165.1 cm Shyam Dolce DPM FACFAS Work Phone: [facility] 07-24-2024 10:12-0400 Body mass index (BMI) [Ratio] 42.43 kg/m2 Shyam Dolce DPM FAC[employer]AS Work Phone: [facility] 07-24-2024 10:12-0400 Body weight 115.67 kg Shyam Dolce DPM FAC[employer]AS Work Phone: [facility] 07-24-2024 10:12-0400 Diastolic blood pressure 78 mm[Hg] Shyam Dolce DPM FACFAS Work Phone: [facility] 07-24-2024 10:12-0400 Heart rate 83 /min Shyam Higginsce DPM FACFAS Work Phone: [facility] 07-24-2024 10:12-0400 Systolic blood pressure 131 mm[Hg] Shyam Cam DPM FAC[employer]AS Work Phone: [facility] 07-23-2024 09:37-0400 Body height 165.1 cm Arlen Sanchez el? Work Phone: [facility] 07-23-2024 09:37-0400 Body mass index (BMI) [Ratio] 42.43 kg/m2 Arlen Sanchez el? Work Phone: [facility] 07-23-2024 09:37-0400 Body weight 115.67 kg Arlen SalasDaniel DO Work Phone: [facility] 07-03-2024 10:07-0400 Body height 165.1 cm Shyam Dolce DPM FACFAS Work Phone: [facility] 07-03-2024 10:07-0400 Body mass index (BMI) [Ratio] 42.43 kg/m2 Shyam Dolce DPM FAC[employer]AS Work Phone: [facility] 07-03-2024 10:07-0400 Body weight 115.67 kg Shyam Dolce DPM [employer]AC[employer] Work Phone: [facility] 07-03-2024 10:07-0400 Diastolic blood pressure 78 mm[Hg] Shyam Higginsce DPM FAC[employer] Work Phone: [facility] 07-03-2024 10:07-0400 Heart rate 85 /min Shyam Dolce DPM FAC[employer]AS Work Phone: [facility] 07-03-2024 10:07-0400 Systolic blood pressure 132 mm[Hg] Shyam Dolce DPM [employer]AC[employer] Work Phone: [facility] 06-25-2024 14:46-0400 Body height 165.1 cm Kajal Dolce DPM FAC[employer]AS Work Phone: [facility] 06-25-2024 14:46-0400 Body mass index (BMI) [Ratio] 42.43 kg/m2 Kajal Dolce DPM [employer]AC[employer] Work Phone: [facility] 06-25-2024 14:46-0400 Body weight 115.67 kg Kajal Dolce DPM FAC[employer] Work Phone: [facility] 06-25-2024 14:46-0400 Diastolic blood pressure 75 mm[Hg] Kajal Dolce DPM FAC[employer]AS Work Phone: [facility] 06-25-2024 14:46-0400 Heart rate 72 /min Kajal Dolce DPM FAC[employer]AS Work Phone: [facility] 06-25-2024 14:46-0400 Systolic blood pressure 126 mm[Hg] Kajal Dolce DPM FAC[employer]AS Work Phone: [facility] 06-19-2024 08:52-0400 Body height 165.1 cm Shyam Dolce DPM FAC[employer]AS Work Phone: [facility] 06-19-2024 08:52-0400 Body mass index (BMI) [Ratio] 42.43 kg/m2 Shyam Dolce DPM FAC[employer] Work Phone: [facility] 06-19-2024 08:52-0400 Body weight 115.67 kg Shyam Dolce DPM [employer]AC[employer] Work Phone: [facility] 06-19-2024 08:52-0400 Diastolic blood pressure 77 mm[Hg] Shyam Dolce DPM FAC[employer] Work Phone: [facility] 06-19-2024 08:52-0400 Heart rate 73 /min Shyam Dolce DPM FAC[employer]AS Work Phone: [facility] 06-19-2024 08:52-0400 Systolic blood pressure 125 mm[Hg] Shyam Dolce DPM FAC[employer]AS Work Phone: [facility] 06-18-2024 10:17-0400 Body height 165.1 cm Bassam Aguilar DPM Work Phone: [facility] 06-18-2024 10:17-0400 Body mass index (BMI) [Ratio] 42.43 kg/m2 Bassam Aguilar DPM Work Phone: [facility] 06-18-2024 10:17-0400 Body weight 115.67 kg Bassam Aguilar DPM Work Phone: [facility] 06-18-2024 10:17-0400 Diastolic blood pressure 75 mm[Hg] Bassam Aguilar DPM Work Phone: [facility] 06-18-2024 10:17-0400 Heart rate 83 /min Bassam Aguilar DPM Work Phone: [facility] 06-18-2024 10:17-0400 Systolic blood pressure 125 mm[Hg] Bassam Aguilar DPM Work Phone: [facility] 04-24-2024 08:50-0400 Body height 170.2 cm Chiqui Robles MD Work Phone: [facility] 04-24-2024 08:50-0400 Body mass index (BMI) [Ratio] 42.28 kg/m2 Chiqui Robles MD Work Phone: [facility] 04-24-2024 08:50-0400 Body weight 122.47 kg Chiqui Robles MD Work Phone: [facility] 04-24-2024 08:50-0400 Diastolic blood pressure 89 mm[Hg] Chiqui Robles MD Work Phone: [facility] 04-24-2024 08:50-0400 Heart rate 61 /min Chiqui Robles MD Work Phone: [facility] 04-24-2024 08:50-0400 SaO2% (BldA) [Mass fraction] 95 % Chiqui Robles MD Work Phone: [facility] 04-24-2024 08:50-0400 Systolic blood pressure 122 mm[Hg] Chiqui Robles MD Work Phone: [facility] 02-29-2024 13:41-0400 Body height 170.2 cm Herberth Araujo MD, PhD Work Phone: [facility] 02-29-2024 13:41-0400 Body mass index (BMI) [Ratio] 42.29 kg/m2 Herberth Araujo MD, PhD Work Phone: [facility] 02-29-2024 13:41-0400 Body temperature 97.39 [degF] Herberth Araujo MD, PhD Work Phone: [facility] 02-29-2024 13:41-0400 Body weight 122.47 kg Herberth Araujo MD, PhD Work Phone: [facility] 02-29-2024 13:41-0400 Diastolic blood pressure 73 mm[Hg] Herberth Araujo MD, PhD Work Phone: [facility] 02-29-2024 13:41-0400 Heart rate 62 /min Herberth Araujo MD, PhD Work Phone: [facility] 02-29-2024 13:41-0400 SaO2% (BldA) [Mass fraction] 94 % Herberth Araujo MD, PhD Work Phone: [facility] 02-29-2024 13:41-0400 Systolic blood pressure 138 mm[Hg] Herberth Araujo MD, PhD Work Phone: [facility] 02-05-2024 12:17-0400 Body weight 124.74 kg Francoise Singletary MD Work Phone: [facility] 02-05-2024 12:17-0400 Diastolic blood pressure 70 mm[Hg] Francoise Singletary MD Work Phone: [facility] 02-05-2024 12:17-0400 Heart rate 80 /min Francoise Singletary MD Work Phone: [facility] 02-05-2024 12:17-0400 Systolic blood pressure 131 mm[Hg] Francoise Singletary MD Work Phone: [facility] 09-11-2023 11:00-0500 Body height 167.64 cm Tondra Mapus Other [facility] 09-11-2023 11:00-0500 Body mass index (BMI) [Ratio] 44.91 kg/m2 Tondra Mapus Other [employer] Other 09-11-2023 11:00-0500 Body weight 126.24 kg Tondra Mapus Other [facility] [employer] Other 09-11-2023 11:00-0500 Body weight 126.23 kg MD Scarlet Johnson Work Phone: [facility] 09-11-2023 11:00-0500 Diastolic blood pressure 82 mm[Hg] Tondra Mapus Other [facility] 09-11-2023 11:00-0500 Respiratory rate 18 /min Tondra Mapus Other [employer] Other 09-11-2023 11:00-0500 SaO2% (BldA) [Mass fraction] 99 % Tondra Mapus Other [facility] [employer] Other 09-11-2023 11:00-0500 Systolic blood pressure 153 mm[Hg] Tondra Mapus Other [facility] 08-24-2023 13:45-0500 Body height 167.64 cm Eligio Soni Other [facility] 08-24-2023 13:45-0500 Body mass index (BMI) [Ratio] 44.22 kg/m2 Eligio Soni Other [employer] Other 08-24-2023 13:45-0500 Body temperature 97.4 [degF] Eligio Soni Other [employer] Other 08-24-2023 13:45-0500 Body weight 124.29 kg Eligio Zachariah Other [employer] Other 08-24-2023 13:45-0500 Body weight 124.28 kg MD Scarlet Johnson Work Phone: [facility] 08-24-2023 13:45-0500 Diastolic blood pressure 60 mm[Hg] Eligio Soni Other [facility] 08-24-2023 13:45-0500 SaO2% (BldA) [Mass fraction] 97 % Eligiobrenda Soni Other [place] [employer] Other 08-24-2023 13:45-0500 Systolic blood pressure 130 mm[Hg] Eligio Soni Other [facility] 03-07-2023 10:00-0400 Body height 167.64 cm Terry Kelley Other [employer] Other 03-07-2023 10:00-0400 Body mass index (BMI) [Ratio] 43.61 kg/m2 Terry Kelley Other [employer] Other 03-07-2023 10:00-0400 Body weight 122.56 kg Terry Kelley Other [employer] Other 03-07-2023 10:00-0400 Diastolic blood pressure 70 mm[Hg] Terry Kelley Other [employer] Other 03-07-2023 10:00-0400 Respiratory rate 20 /min Terry Kelley Other [employer] Other 03-07-2023 10:00-0400 SaO2% (BldA) [Mass fraction] 96 % Terry Kelley Other [employer] Other 03-07-2023 10:00-0400 Systolic blood pressure 134 mm[Hg] Terry Kelley Other [employer] Other 02-14-2023 09:45-0400 Body height 172.72 cm Tondra Mapus Other [employer] Other 02-14-2023 09:45-0400 Body mass index (BMI) [Ratio] 41.32 kg/m2 Tondra Mapus Other [employer] Other 02-14-2023 09:45-0400 Body weight 123.29 kg Tondra Mapus Other [employer] Other 02-14-2023 09:45-0400 Diastolic blood pressure 82 mm[Hg] Tondra Mapus Other [employer] Other 02-14-2023 09:45-0400 Respiratory rate 18 /min Tondra Mapus Other [employer] Other 02-14-2023 09:45-0400 SaO2% (BldA) [Mass fraction] 97 % Tondra Mapus Other [employer] Other 02-14-2023 09:45-0400 Systolic blood pressure 157 mm[Hg] Tondra Mapus Other [employer] Other 01-20-2023 12:15-0400 Body height 172.72 cm Carito West Other [employer] Other 01-20-2023 12:15-0400 Body mass index (BMI) [Ratio] 40.71 kg/m2 Carito Fitt Other [employer] Other 01-20-2023 12:15-0400 Body weight 121.47 kg Carito Fitt Other [employer] Other 01-05-2023 11:15-0400 Body height 172.72 cm Terry Kelley Other [employer] Other 01-05-2023 11:15-0400 Body mass index (BMI) [Ratio] 40.96 kg/m2 Terry Kelley Other [employer] Other 01-05-2023 11:15-0400 Body weight 122.2 kg Terry Kelley Other [employer] Other 01-05-2023 11:15-0400 Diastolic blood pressure 73 mm[Hg] Terry Kelley Other [employer] Other 01-05-2023 11:15-0400 Respiratory rate 18 /min Terry Kelley Other [employer] Other 01-05-2023 11:15-0400 SaO2% (BldA) [Mass fraction] 98 % Terry Kelley Other [employer] Other 01-05-2023 11:15-0400 Systolic blood pressure 143 mm[Hg] Terry Kelley Other [employer] Other 11-24-2022 12:15-0500 Body height 172.72 cm Carito Fitt Other [employer] Other 11-24-2022 12:15-0500 Body mass index (BMI) [Ratio] 42.22 kg/m2 Carito Fitt Other [employer] Other 11-24-2022 12:15-0500 Body weight 125.96 kg Carito Fitt Other [employer] Other 11-18-2022 11:15-0500 Body height 172.72 cm Terry Rigoberto Other [employer] Other 11-18-2022 11:15-0500 Body mass index (BMI) [Ratio] 41.96 kg/m2 Terry Kelley Other [employer] Other 11-18-2022 11:15-0500 Body weight 125.19 kg Terry Kelley Other [employer] Other 11-18-2022 11:15-0500 Diastolic blood pressure 75 mm[Hg] Terry Kelley Other [employer] Other 11-18-2022 11:15-0500 Respiratory rate 18 /min Terry Kelley Other [employer] Other 11-18-2022 11:15-0500 SaO2% (BldA) [Mass fraction] 99 % Terry Kelley Other [employer] Other 11-18-2022 11:15-0500 Systolic blood pressure 148 mm[Hg] Terry Kelley Other [employer] Other 11-07-2022 10:15-0500 Body height 172.72 cm Tondra Mapus Other [employer] Other 11-07-2022 10:15-0500 Body mass index (BMI) [Ratio] 42.58 kg/m2 Tondra Mapus Other [employer] Other 11-07-2022 10:15-0500 Body weight 127.05 kg Tondra Mapus Other [employer] Other 11-07-2022 10:15-0500 Diastolic blood pressure 83 mm[Hg] Tondra Mapus Other [employer] Other 11-07-2022 10:15-0500 Respiratory rate 18 /min Tondra Mapus Other [employer] Other 11-07-2022 10:15-0500 SaO2% (BldA) [Mass fraction] 98 % Tondra Mapus Other [employer] Other 11-07-2022 10:15-0500 Systolic blood pressure 170 mm[Hg] Tondra Mapus Other [employer] Other 10-18-2022 15:00-0500 Body height 172.72 cm Carito Fitt Other [employer] Other 2022 16:15-0400 Body height 172.72 cm Carito Fitt Other [employer] Other 07-27-2022 12:00-0400 Body height 172.72 cm Tondra Mapus Other [employer] Other 07-27-2022 12:00-0400 Body mass index (BMI) [Ratio] 40.9 kg/m2 Tondra Mapus Other [employer] Other 07-27-2022 12:00-0400 Body weight 122.02 kg Tondra Mapus Other [employer] Other 07-27-2022 12:00-0400 Diastolic blood pressure 75 mm[Hg] Tondra Mapus Other [employer] Other 07-27-2022 12:00-0400 Respiratory rate 20 /min Tondra Mapus Other [employer] Other 07-27-2022 12:00-0400 SaO2% (BldA) [Mass fraction] 97 % Tondra Mapus Other [employer] Other 07-27-2022 12:00-0400 Systolic blood pressure 141 mm[Hg] Tondra Mapus Other [employer] Other 06-08-2022 10:45-0400 Body height 172.72 cm Carito West Other [employer] Other 04-21-2022 12:00-0400 Body height 172.72 cm Tondra Mapus Other [employer] Other 04-21-2022 12:00-0400 Body mass index (BMI) [Ratio] 39.67 kg/m2 Tondra Mapus Other [employer] Other 04-21-2022 12:00-0400 Body weight 118.34 kg Tondra Mapus Other [employer] Other 04-21-2022 12:00-0400 Diastolic blood pressure 74 mm[Hg] Tondra Mapus Other [employer] Other 04-21-2022 12:00-0400 Respiratory rate 20 /min Tondra Mapus Other [employer] Other 04-21-2022 12:00-0400 SaO2% (BldA) [Mass fraction] 97 % Tondra Mapus Other [employer] Other 04-21-2022 12:00-0400 Systolic blood pressure 143 mm[Hg] Tondra Mapus Other [employer] Other 10-21-2021 12:00-0500 Body height 172.72 cm Tondra Mapus Other [employer] Other 10-21-2021 12:00-0500 Body mass index (BMI) [Ratio] 40.14 kg/m2 Tondra Mapus Other [employer] Other 10-21-2021 12:00-0500 Body weight 119.75 kg Tondra Mapus Other [employer] Other 10-21-2021 12:00-0500 Diastolic blood pressure 78 mm[Hg] Tondra Mapus Other [employer] Other 10-21-2021 12:00-0500 Respiratory rate 20 /min Tondra Mapus Other [employer] Other 10-21-2021 12:00-0500 SaO2% (BldA) [Mass fraction] 97 % Aldo Middleton Other [employer] Other 10-21-2021 12:00-0500 Systolic blood pressure 147 mm[Hg] Aldo Middleton Other [employer] Other 07-21-2021 15:45-0400 Body height 172.72 cm Morgan Kunz Other [employer] Other 07-21-2021 15:45-0400 Body mass index (BMI) [Ratio] 38.77 kg/m2 Morgan Kunz Other [employer] Other 07-21-2021 15:45-0400 Body weight 115.67 kg Morgan Kunz Other [employer] Other 12-14-2017 15:17-0500 Body height 170.18 cm MD Scarlet Johnson Work Phone: [facility] Encounters Encounter Date Encounter Type Care Provider Facility Start: 02-03-2025 ambulatory Haider Hickman Facility :[facility] Jessie Start: 11-06-2024 ambulatory Araceli BERMUDEZ Facility : [place] Start: 11-04-2024 End: 11-04-2024 ambulatory Haider Hickman Facility:[facility] Jocelyn silva Start: 10-24-2024 End: 10-24-2024 ambulatory Haider Hickman Facility:[facility] Start: 10-17-2024 End: 10-17-2024 Bamboo flowsheet Bassam Aguilar DPM Work Phone: [facility] Start: 10-17-2024 End: 10-17-2024 Bamboo flowsheet Bassam Aguilar DPM Work Phone: [facility] Start: 10-17-2024 End: 10-17-2024 Patient encounter procedure Bassam Aguilar DPM Work Phone: [facility] Comment on above: Diabetes mellitus du e to underlying condition with diabetic polyneuropathy, 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 certifier insulin use ([facility]) (Primary Dx); Pain due to onychomycosis of toenails of both feet; Venous insufficiency Start: 10-17-2024 End: 10-17-2024 ambulatory BASSAM AGUILAR Not Available Start: 10-15-2024 End: 10-15-2024 ambulatory Haider Hickman [facility] Start: 09-09-2024 End: 09-09-2024 ambulatory Haider Hickman Facility:[facility] Start: 09-09-2024 End: 09-09-2024 ambulatory Miguelangel Mac MD Facility:[facility] Start: 09-02-2024 End: 09-02-2024 ambulatory Miguelangel Mac MD Facility:[facility] Start: 08-29-2024 End: 08-29-2024 Bamboo flowsheet Matthew May DO Work Phone: [facility] Start: 08-29-2024 End: 08-29-2024 Bamboo flowsheet Jamisonophbrenda May DO Work Phone: [facility] Start: 08-29-2024 End: 08-29-2024 Office outpatient new 45 minutes Matthew May DO Work Phone: [facility] Comment on above: Right foot pain (Brie jesse Dx); Diabetic polyneuropathy associated with type 2 diabetes mellitus ([facility]) Start: 08-29-2024 End: 08-29-2024 ambulatory MATTHEW MAY Not Available Start: 08-15-2024 End: 08-15-2024 ambulatory [facility] Start: 08-14-2024 End: 08-14-2024 ambulatory HAIDER HICKMAN Facility:[facility] Start: 08-14-2024 End: 08-14-2024 Patient encounter procedure [...] underlying condition with diabetic polyneuropathy, 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 fdc insulin use (CMS/HCC); Pain due to onychomycosis of toenails of both feet Start: 08-08-2024 End: 08-08-2024 ambulatory BASSAM AGUILAR Not Available Start: 08-07-2024 End: 08-07-2024 ambulatory [facility] Start: 08-06-2024 End: 08-06-2024 Bamboo flowsheet [...] Start: 08-01-2024 End: 08-01-2024 ambulatory Haider Hickman Facility:[facility] Start: 07-31-2024 End: 07-31-2024 Bamboo flowsheet Shyam [...] underlying condition with diabetic polyneuropathy, 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 fdc insulin use ([facility]); Amputation of right great toe ([facility]) Start: 07-31-2024 End: 07-31-2024 ambulatory SHYAM D [...] underlying condition with diabetic polyneuropathy, 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 fdc insulin use ([facility]) Start: 07-24-2024 End: 07-24-2024 ambulatory SHYAM D DOLCE Not Available Start: 07-23-2024 End: 07-23-2024 Bamboo flowsheet Arlen Sanchez DO Work Phone: [facility] Start: 07-23-2024 End: 07-23-2024 Bamboo flowsheet Arlen Sanchez DO Work Phone: [facility] Start: 07-23-2024 End: 07-23-2024 Office outpatient visit 25 minutes Arlen Sanchez DO Work Phone: [facility] Comment [...] Change Request Start: 07-19-2024 End: 07-19-2024 [facility] Start: 07-17-2024 End: 07-18-2024 ambulatory Araceli BERMUDEZ Facility:[facility] Comment on above: Medication Question Start: 07-04-2024 End: 07-08-2024 Telephone encounter Arlen Sanchez DO Work Phone: [facility] Comment on above: MRI Start: 07-03-2024 End: 07-03-2024 Bamboo flowsheet Shyam Georgiana Dolce DPM [employer]AC[facility] Work Phone: [facility] Start: 07-03-2024 End: 07-03-2024 Bamboo flowsheet Shyam Georgiana Dolce DPM [employer]AC[employer] Work Phone: [facility] Start: 07-03-2024 End: 07-03-2024 Office outpatient visit 15 minutes Shyam Georgiana Higginsce DPM FAC[facility]AS Work Phone: [facility] Comment on above: 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) Start: 07-03-2024 End: 07-03-2024 ambulatory SHYAM CAM Not Available Start: 07-01-2024 End: 07-01-2024 Bamboo flowsheet Chelle Brandon POULTRY HUSBANDRY WORKER Work Phone: [facility] Start: 07-01-2024 End: 07-01-2024 Bamboo flowsheet Chelle Brandon POULTRY HUSBANDRY WORKER Work Phone: [facility] Start: 07-01-2024 End: 07-01-2024 Office outpatient visit 15 minutes Chelle Brandon POULTRY HUSBANDRY WORKER Work Phone: [facility] Comment on above: Left shoulder pain, unspecified chronicity (Primary Dx); Arthritis of left acromioclavicular joint; Glenohumeral arthritis, left; Impingement of left shoulder; Internal derangement of left shoulder Start: 07-01-2024 End: 07-01-2024 ambulatory CHELLE BRANDON Not Available Start: 06-26-2024 End: 06-26-2024 ambulatory [facility] Start: 06-25-2024 End: 06-25-2024 ambulatory KAJAL R DOLCE Not Available Start: 06-25-2024 End: 06-25-2024 Office outpatient visit 15 minutes Kajal R Dolce DPM FACFAS Work Phone: [facility] Comment on above: 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); Diabetes 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, 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 fdc insulin use ([facility]); Venous insufficiency; Non-pressure chronic ulcer of other part of right lower leg with fat layer exposed ([facility]) Start: 06-25-2024 End: 06-25-2024 Bamboo flowsheet Kajal R Dolce DPM FACFAS Work Phone: [facility] Start: 06-25-2024 End: 06-25-2024 Bamboo flowsheet Kajal R Dolce DPM FACFAS Work Phone: [facility] Start: 06-19-2024 End: 06-19-2024 Telephone encounter Shyam Cam DPM FACFAS Work Phone: [facility] Start: 06-19-2024 End: 06-19-2024 ambulatory Kajal R Dolce Facility:[facility] Start: 06-19-2024 End: 06-19-2024 Office outpatient visit [...] underlying condition with diabetic polyneuropathy, 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 fdc insulin use ([facility]); Amputation of right great toe ([facility]) Start: 06-12-2024 End: 06-12-2024 Bamboo flowsheet Chelle Brandon POULTRY HUSBANDRY WORKER Work Phone: [facility] Start: 06-12-2024 End: 06-12-2024 Bamboo flowsheet Chelle Brandon POULTRY HUSBANDRY WORKER Work Phone: [facility] Start: 06-12-2024 End: 06-12-2024 ambulatory Kajal Kanchan Giselakilo Facility:[facility] Start: 06-12-2024 End: 06-12-2024 Office outpatient visit 25 minutes Chelle Brandon POULTRY HUSBANDRY WORKER Work Phone: [facility] Comment on above: Left shoulder pain, unspecified chronicity (Primary Dx); Arthritis of left acromioclavicular joint; Glenohumeral arthritis, left; Impingement of left shoulder Start: 06-12-2024 End: 06-12-2024 ambulatory CHELLE BRANDON Not Available Start: 06-07-2024 End: 06-07-2024 [facility] Britney Hyde PhD Work Phone: Pain Recovery Comment on above: Adjustment disorder with depressed mood (Primary Dx); Complex regional pain syndrome type II of right lower limb; Chronic toe pain, right foot Start: 06-05-2024 End: 06-05-2024 ambulatory Kajal Cam Facility:[facility] Start: 06-03-2024 End: 06-03-2024 Telephone encounter Chelle Brandon POULTRY HUSBANDRY WORKER Work Phone: [facility] Start: 05-27-2024 End: 05-27-2024 ambulatory CHELLE BRANDON Not Available Start: 05-23-2024 ambulatory Chiqui chapa MD Work Phone: Neurology Pain Comment on above: taking memantine HCL Start: 05-22-2024 End: 05-22-2024 ambulatory DAVID ACOSTA Facility: [facility] Start: 05-13-2024 End: 05-13-2024 ambulatory Haider Hickman Facility: [facility] Start: 05-09-2024 End: 05-09-2024 ambulatory BASSAM AGUILAR Not Available Start: 05-07-2024 ambulatory Morgan Trinidad Therapist Work Phone: Pain Recovery Comment on above: next step, resources Start: 05-07-2024 E-mail encounter fro m caregiver Morgan Trinidad Therapist Work Phone: Pain Recovery Start: 05-06-2024 End: 05-06-2024 [facility] Morgan Trinidad Therapist Work Phone: Pain Recovery Comment on above: Adjustment disorder with depressed mood (Primary Dx); Complex regional pain syndrome type II of right lower limb; Chronic toe pain, right foot Start: 04-24-2024 End: 04-24-2024 ambulatory HAIDER HICKMAN Facility:[facility] Start: 04-24-2024 End: 04-24-2024 Patient encounter procedure [...] Start: 04-23-2024 End: 04-23-2024 ambulatory Haider Hickman Facility:[facility] Jocelyn silva Start: 04-03-2024 End: 04-03-2024 ambulatory HERBERTH ARAUJO Facility:[facility] Start: 03-26-2024 End: 03-26-2024 ambulatory Haider Hickman Facility:[facility] Jocelyn silva Start: 03-19-2024 Telephone encounter Herberth meyers MD, PhD Work Phone: Pain Management Comment on above: Nurse Triage Call Start: 03-08-2024 End: 03-08-2024 ambulatory Haider Hickman Facility:[facility] Start: 03-07-2024 End: 03-07-2024 ambulatory Haider Hickman Facility:[facility] Jocelyn silva Start: 02-29-2024 End: 02-29-2024 ambulatory HERBERTH Boom VAN Facility:[facility] Start: 02-29-2024 End: 02-29-2024 Patient encounter procedure [...] Start: 02-05-2024 End: 02-05-2024 ambulatory FRANCOISE SINGLETARY Facility:[facility] Start: 02-05-2024 End: 02-05-2024 Patient encounter procedure Francoise Singletary MD Work Phone: Pain Management Comment on above: Chronic toe pain, ri ght foot (Primary Dx); Painful diabetic neuropathy (HCC); Class 3 severe obesity with serious comorbidity and body mass index (BMI) of 40.0 to 44.9 in adult, unspecified obesity type (HCC) Start: 01-24-2024 End: 01-24-2024 ambulatory Araceli BERMUDEZ Facility:[facility] Start: 01-22-2024 End: 01-22-2024 ambulatory PATRICIA MCPHERSON Not Available Start: 01-04-2024 End: 01-04-2024 ambulatory Araceli BERMUDEZ Facility:[facility] Start: 01-03-2024 End: 01-03-2024 ambulatory CHELLE BRANDON Not Available Start: 12-29-2023 End: 12-29-2023 ambulatory Araceli BERMUDEZ Facility:[facility] Start: 12-26-2023 End: 12-26-2023 ambulatory Haider Hickman Facility:[facility] Start: 12-14-2023 End: 12-14-2023 ambulatory BASSAM AGUILAR Not Available Start: 12-04-2023 End: 12-04-2023 ambulatory [facility] Start: 10-18-2023 End: 10-18-2023 ambulatory Araceli P AIDAN Facility: [place] Start: 10-16-2023 End: 10-16-2023 ambulatory Miguelangel Mac [facility] Start: 09-25-2023 End: 09-25-2023 ambulatory Miguelangel Mac MD [facility] Start: 09-20-2023 End: 09-20-2023 ambulatory Haider Hickman [facility] Start: 09-12-2023 End: 09-12-2023 ambulatory Tondra Juanitaus Other [facility] Other Start: 09-12-2023 Telephone encounter Tondra Emi [facility] Start: 09-11-2023 (DM) Diabetes Tondra Mapus [facility] Start: 09-11-2023 End: 09-12-2023 ambulatory MD Scarlet Johnson Work Phone: [facility] Other Start: 09-11-2023 End: 09-11-2023 Discharged Recurring MD Scarlet Johnson Work Phone: [facility] Work Phone: Start: 09-11-2023 End: 09-11-2023 Patient encounter procedure MD Scarlet Johnson Work Phone: [facility] Work Phone: Start: 08-24-2023 End: 08-24-2023 Patient encounter procedure MD Scarlet Johnson Work Phone: [facility] Start: 08-24-2023 End: 08-24-2023 ambulatory MD Scarlet Johnson Work Phone: [facility] Work Phone: Start: 08-24-2023 Office outpatient ne w 60 minutes Eligio Soni [facility] Vascular Surgery Start: 08-24-2023 End: 08-24-2023 Patient encounter procedure MD Scarlet Johnson Work Phone: [facility] Vascular Surgery Work Phone: Start: 08-21-2023 End: 08-21-2023 ambulatory Haider Hickman Facility:[facility] Start: 07-26-2023 End: 07-26-2023 ambulatory Haider Hickman Facility:[facility] Jocelyn shira Start: 06-14-2023 End: 06-14-2023 ambulatory Tondra Mapus Other [facility] [employer] Other Start: 06-14-2023 Telephone encounter Tondra Mapus [facility] Start: 06-09-2023 End: 06-09-2023 ambulatory Carito Frandyt Other [facility] [employer] Other Start: 06-09-2023 Nursing evaluation o f patient and report Carito West [facility] Start: 06-09-2023 Registered Recurring MD Scarlet franks Work Phone: [facility] Work Phone: Start: 05-31-2023 End: 05-31-2023 ambulatory Tondra Mapus Other [facility] Other Start: 05-31-2023 Telephone encounter Aldo Middleton [facility] Start: 03-07-2023 Follow-up encounter Terry moreno [facility] Start: 03-07-2023 End: 03-08-2023 ambulatory Terry Kelley [place] [facility] Other Start: 02-17-2023 End: 02-17-[address] JOVITA WOODARD . Facility:[facility] Start: 02-14-2023 (DM) Diabetes Tondra Emi [facility] Start: 02-14-2023 End: 02-14-2023 ambulatory Tondra Mapus Other [facility] Other Start: 01-20-2023 ([facility] RD FU) [facility] F/ U Registerd Senior Etl Developer Carito West [facility] Start: 01-20-2023 End: 01-20-2023 ambulatory Carito West Other [facility] Other Start: 01-05-2023 End: 01-05-2023 ambulatory Terry Kelley Other [facility] Other Start: 01-05-2023 Follow-up encounter Terry moreno [...] ambulatory DR TERRY KELLEY Facility:[facility] Start: 11-24-2022 ([facility] WMNI) WMN Init ial Provider [facility] Start: 11-24-2022 End: 11-24-2022 ambulatory Carito West Other [facility] Other Start: 11-22-2022 End: 11-22-2022 ambulatory Tondra Mapus Other [facility] Other Start: 11-22-2022 Nursing evaluation o f patient and report Aldo Middleton [facility] Start: 11-18-2022 End: 11-18-2022 ambulatory Terry Kelley Other [facility] Other Start: 11-18-2022 Nutrition therapy Terry Kelley [facility] Start: 11-08-2022 End: 11-09-[address] SCARLET JOHNSON . Facility:[facility] Start: 11-07-2022 (DM) Diabetes Aldo Middleton [facility] Start: 11-07-2022 End: 11-07-2022 ambulatory Tondrboom Grantus Other [facility] Other Start: 10-18-2022 (RD) Clinical Recruiter Carito West [facility] Start: 10-18-2022 End: 10-18-2022 ambulatory Carito West Other [facility] Other Start: 08-18-2022 End: 08-19-[address] BRITTNY MORALES Facility:[facility] Start: 2022 ([facility] DB FU) [facility] Diabetes F/U Carito [facility] Start: 2022 End: 08-11-[address] ARACELI BERMUDEZ [place] [facility] Other Start: 07-29-2022 End: 07-30-[address] SCARLET JOHNSON . Facility:[facility] Start: 07-27-2022 (DM) Diabetes Tondra Mapus [facility] Start: 07-27-2022 End: 07-27-2022 ambulatory Tondra Mapus Other [facility] Other Start: 06-08-2022 (Senior Etl Developer) Senior Etl Developer Carito moreno [facility] Start: 06-08-2022 End: 06-08-2022 ambulatory Carito West Other [facility] Other Start: 04-21-2022 (DM) Diabetes Tondra Mapus [facility] Start: 04-21-2022 End: 04-21-2022 ambulatory Tondra Mapus Other [facility] Other Start: 04-21-2022 Telephone encounter Tondra Mapus [facility] Start: 04-07-2022 End: 04-08-[address] SCARLET JOHNSON . Facility: Start: 10-21-2021 (DM) Diabetes Tondra Mapus [facility] Start: 10-21-2021 End: 10-21-2021 ambulatory Tondra Mapus Other [facility] Other Start: 07-21-2021 Office outpatient ne w 45 minutes Morgan Kunz [facility] Procedures Date Procedure Procedure Detail Performing Clinician Start: 06-19-2024 Radex foot complete minimum 3 views Shyam Cam DPM FAC[facility]AS Work Phone: Start: 06-12-2024 Arthrocentesis aspir &/inj major jt/bursa w/o us Chelle Brandon POULTRY HUSBANDRY WORKER Work Phone: Start: 08-24-2023 Duplex scan of lower limb veins MD Scarlet Johnson Work Phone: Plan of Treatment Date Care Activity Detail Author Start: 07-23-2025 ambulatory Ambulatory Facility:[facility] Start: 05-15-2025 ambulatory Ambulatory Facility:[facility] Start: 01-21-2025 End: 01-21-2025 Patient encounter procedure 01/21/2025 3:10 PM EDT Office Visit [facility] [address] [place] [address] Patricia Mcpherson, PA [address] [place] [address] [facility] Start: 12-26-2024 End: 12-26-2024 Patient encounter procedure 12/26/2024 11:00 AM EDT Procedure Visit [facility] [address] [facility] [address] [place] [phone] Bassam Aguilar, DPM [address] [facility] [address] [place] [address] [facility] Start: 10-17-2024 End: 10-17-2024 Patient encounter procedure [facility] Comment on above: Diabetes mellitus du e to underlying condition with diabetic polyneuropathy, 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 fdc insulin use ([facility]) (Primary Dx); Pain due to onychomycosis of toenails of both feet; Venous insufficiency Start: 08-29-2024 End: 08-29-2024 Patient encounter procedure 08/29/2024 9:30 AM EST Office Visit [facility] [address] [place] [phone] Matthew May DO [address] [place] [address] Arrived [facility] Comment on above: Arrived Start: 08-27-2024 End: 08-27-2024 Patient encounter procedure 08/27/2024 3:15 PM EST Office Visit [facility] [address] [place] [address] Gallo Gayle, DO [address] [place] [address] [facility] [address] Start: 08-14-2024 End: 08-14-2024 Patient encounter procedure 08/14/2024 10:00 AM EST Office Visit Neurology Pain [address] [place] [address] Chiqui Robles MD [address] [place] [address] 1 Month Follow Up Neurology Pain Comment on above: 1 Month Follow Up Start: 2024 RSV Vaccine (1 - 1-d ose 75+ series) RSV Vaccine (1 - 1-dose 75+ series) [facility] Start: 08-08-2024 End: 08-08-2024 Patient encounter procedure [facility] Comment on above: Diabetes mellitus du e to underlying condition with diabetic polyneuropathy, 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 fdc insulin use (CMS/HCC) (Primary Dx); Pain due to onychomycosis of toenails of both feet; Amputation of toe of right foot (CMS/HCC) Start: 08-06-2024 End: 08-06-2024 Patient encounter procedure 08/06/2024 9:45 AM EDT Office Visit [facility] [address] [place] [id number] Khai Heard, DO [address] [place] [address] [facility] Start: 07-31-2024 End: 07-31-2024 [...] PODIATRY [address] [place] [address] Bassam Aguilar, DPM [address] [facility] [address] [place] [address] [facility] Start: 07-09-2024 End: 07-09-2024 Patient encounter procedure 07/09/2024 9:45 AM EDT Office Visit [facility] [address] [facility] [address] [place] [address] Arlen Sanchez DO [address] [facility] [address] [place] [address] [facility] Start: 07-03-2024 End: 07-03-2024 Professional / ancillary services management 07/03/2024 2:00 PM EDT Ancillary Procedure [facility] MR [address] [facility] [address] [place] [phone] [facility] MR Start: 07-03-2024 End: 07-03-2024 Patient encounter procedure [facility] Comment on above: Arrived Start: 07-02-2024 End: 07-02-2024 Professional / ancillary services management 07/02/2024 10:15 AM EDT Ancillary Procedure [facility] [address] [facility] [address] [place] [phone] [facility] MR Start: 07-01-2024 End: 07-01-2025 [...] EDT Office Visit [facility] [address] [place] [address] Kajal Cam, DPM FACFAS [address] [facility] [place] [address] [facility] Start: 06-24-2024 End: 06-24-2024 Patient encounter procedure 06/24/2024 9:15 AM EDT Office Visit [facility] [address] [facility] [address] [place] [address] Chelle Brandon NP [address] [facility] [address] [place] [address] [facility] Start: 06-20-2024 End: 06-20-2024 Patient encounter procedure 06/20/2024 12:20 PM EDT Procedure Visit [facility] EXT DEP Shyam Cam, DPM FACFAS [address] [facility] [place] [address] [facility] EXT DEP Start: 06-19-2024 End: 06-19-2024 Patient encounter procedure 06/19/2024 8:30 AM EDT Office Visit [facility] [address] [place] [address] Shyam Cam, DPM FACFAS [address] [facility] [place] [address] [facility] Start: 06-12-2024 End: 06-12-2024 Patient encounter procedure [facility] Comment on above: Left shoulder pain, unspecified chronicity (Primary Dx); Arthritis of left acromioclavicular joint; Glenohumeral arthritis, left Start: 06-09-2024 Covid-19 Vaccine ( season) Covid-19 Vaccine ( season) [facility] Start: 06-09-2024 Influenza vaccination [facility] Start: 06-07-2024 End: 06-07-2024 ambulatory 06/07/2024 12:30 PM EDT [facility] [address] [place] [address] Britney Hyde, PhD [address] [place] [address] [facility] Comment on above: [facility] Start: 05-06-2024 End: 05-06-2024 ambulatory 05/06/2024 9:00 AM EDT [facility] [address] [place] [address] Morgan Trinidad, Therapist [address] [place] [address] PAIN PSYCH Pain Recovery Comment on above: PAIN PSYCH Start: 04-17-2024 End: 04-17-2024 Patient encounter procedure 04/17/2024 10:00 AM EDT Office Visit Pain Management [address] [place] [address] Eufemia Ortiz, VIVIENC [address] [place] [address] SUTURAL REMOVAL Pain Management Comment on above: SUTURAL REMOVAL Start: 04-03-2024 End: 04-03-2024 Admission to same day surgery center 04/03/2024 10:00 AM EDT - 04/03/2024 11:05 AM EDT Surgery Pain Management [address] [place] [address] Herberth Araujo MD, PhD [address] [place] [address] Right L4 and L5 DRG Trial Pain Management Comment on above: Right L4 and L5 DRG Trial Start: 04-03-2024 End: 04-03-2024 Prq impltj nstim electrode array epidural PERCUTANEOUS IMPLANT LEAD NEUROSTIM EPIDURAL TRIAL Chronic toe pain, right foot Complex regional pain syndrome type II of right lower limb 04/03/2024 10:00 AM EDT [facility] Start: 04-03-2024 Subsequent hospital visit by physician 04/03/2024 10:00 AM EDT Hospital Encounter Pain Management [address] [place] [address] Herberth Araujo MD, PhD [address] [place] [address] Chronic toe pain, right foot [M79.674, G89.29], Complex regional pain syndrome type II of right lower limb [G57.71] Pain Management Comment on above: Chronic toe pain, ri ght foot [M79.674, G89.29], Complex regional pain syndrome type II of right lower limb [G57.71] Start: 10-09-2023 Advance Directive Discussion Advance Directive Discussion [facility] Start: 10-09-2023 Behavioral Health Screening Behavioral Health Screening [facility] Start: 06-09-2023 Covid-19 Vaccine ( season) Covid-19 Vaccine ( season) [facility] Start: 10-16-2019 Pneumococcal Vaccine : 65+ Years (2 of 2 - PCV) Pneumococcal Vaccine: 65+ Years (2 of 2 - PCV) [facility] Start: 2014 Pneumococcal Vaccine : 65+ (1 of 1 - PCV) Pneumococcal Vaccine: 65+ (1 of 1 - PCV) [facility] Start: 2009 RSV Vaccine (1 - 1-d ose 60+ series) RSV Vaccine (1 - 1-dose 60+ series) [facility] Start: 2009 RSV Vaccine (1 - Ris k 60-74 years 1-dose series) RSV Vaccine (1 - Risk 60-74 years 1-dose series) [facility] Start: 1999 Shingrix Vaccine (1 of 2) Rabago grix Vaccine (1 of 2) [facility] Start: 1994 Diabetes Screening Diabetes Screenin g [facility] Start: 1994 Screening for malign ant neoplasm of colon [facility] Start: 1984 Lipid panel Lipid Screening [facility] Start: 1968 Urine microalbumin profile DTa P,Tdap,Td Vaccine (1 - Tdap) [facility] Start: 1967 Annual PCP Team Inside Sales Account Executive hai Disease Visit Annual PCP Team Chronic Disease Visit [facility] Start: 1967 Anxiety Screening Anxiety Screening [facility] Start: 1967 Depression Screening Depression Scre ening [facility] Start: 1967 Hepatitis B surface antibody level LDL Cholesterol [facility] Start: 1967 Hepatitis C screening Hepatitis C Sc reening [facility] Start: 1959 Diabetic foot examination Diabetic F oot Exam [facility] Start: 1959 Glaucoma screening Dilated Retinal E xam [facility] Start: 1959 Hepatitis B screening Urine Albumin:Creatinine Ratio [facility] Start: 1955 Pneumococcal Vaccine : 65+ (1 of 2 - PCV) Pneumococcal Vaccine: 65+ (1 of 2 - PCV) [facility] Start: 1954 Hemoglobin A1c measurement HbA1C [facility] Start: 1949 Screening for malign ant neoplasm of colon [facility] Immunizations Immunization Date Immunization Notes Care Provider Margarita sunshine 07-31-2024 influenza virus vaccine, unspecified formulation Khai Heard DO Work Phone: [facility] 06-15-2023 influenza virus vaccine, unspecified formulation Chelle Brandon POULTRY HUSBANDRY WORKER Work Phone: [facility] 12-30-2020 COVID-19 Vaccine Moderna - Documentation Purposes Only Morgan Kunz Other [facility] 12-02-2020 COVID-19 Vaccine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 2024 This is a face [...] Tucker MD [facility] 03-21-2024 Telephone encounter Note Spoke with patient and notified him of provider recommendations. Verbalized understanding. Emilee So RN [facility] 03-21-2024 Miscellaneous Notes Spoke with patient and notified him of provider recommendations. Verbalized understanding. Emilee So RN Ok per Dr Araujo to proceed with trial - still recommending to keep appt with ID Spoke with patient at request of accountant auditor as patient has questions about referral to infectious disease. Patient states that he spoke with his PCP, Dr. Hickman ([phone]) who spoke with Dr. Vega in Infectious disease at [facility]. Dr. Hickman ordered lab work at [...] Emilee So RN documented in this encounter [facility] 03-21-2024 Telephone encounter Note Ok per Dr Araujo to proceed with trial - still recommending to keep appt with ID [facility] Work Phone: 03-19-2024 Telephone encounter Note Spoke with patient at request of accountant auditor as patient has questions about referral to infectious disease. Patient states that he spoke with his PCP, Dr. Hickman ([phone]) who spoke with Dr. Vega in Infectious disease at [facility]. Dr. Hickman ordered lab work at [...] move forward as planned. Emilee So RN [facility] 03-15-2024 Note Microbiology PROCEDURE: Blood Culture [...] This test was performed at: [facility], [address] [place] [address], [address] [place] [address], [facility] Comment on above: Performed By: #### 1 [id number] #### [facility] [address] [place] [address] 03-15-2024 Note Microbiology PROCEDURE: Blood Culture Charcoal [...] Locations R1: This test was performed at: [facility], [address] [place] [address], [address] [place] [address], [facility] Comment on above: Performed By: #### 1 [id number] #### [facility] [address] [place] [address] 02-29-2024 Instructions Senthil Giraldo MD - 02/29/2024 1:38 PM EDT - Right DRG trial - Obtain psychological evaluation report (patient reports he just had this done ~two months ago) and send to [facility] - ID consult - Rule out infectious risk with due to the dermatitis. - Follow up: Return to clinic for the above procedure documented in this encounter [facility] 02-29-2024 Note HNO ID: [id number] Author: HERBERTH ARAUJO MD, PhD Service: ? Author Type: Physician Type: Progress Notes Filed: 03/18/2024 19:05 Note Text: [facility] Pain Management Department New Patient Consultation Referring Physician: SELF Chief Complaint: Right third toe pain SUBJECTIVE: Dong Whitmore is a 73 year old male with a pertinent past medical history of diabetes who presents to [facility] for the evaluation of right third toe pain. 15-year history of right third toe pain. He notes that over this time the pain has become increasingly severe has caused him significant discomfort and suffering. He has been to many specialists in the [facility] area-over the course of the past 15 [...] not included)... [facility] 02-29-2024 History of Present illness Narrative Images from the original note were not included. [facility] Pain Management Department New Patient Consultation Referring Physician: SELF Chief Complaint: Right third toe pain SUBJECTIVE: Dong Whitmore is a 73 year old male with a pertinent past medical history of diabetes who presents to [facility] for the evaluation of right third toe pain. 15-year history of right third toe pain. He notes that over this time the pain has become increasingly severe has caused him significant discomfort and suffering. He has been to many specialists in the [facility]-over the course of the past [...] history of diabetes who presents to [facility] for the evaluation of right third toe pain. He describes a 15-year history of right third toe pain. He notes that over this time the pain has become increasingly severe has caused him significant discomfort and suffering. He has been to many specialists in the [facility]-over the course of the past [...] done ~two months ago) and send to [facility] - ID consult [...] Araujo MD, PhD documented in this encounter [facility] 02-06-2024 Telephone encounter Note Called and spoke to patient. Gave him this message from Dr. Singletary: I'd suggest seeking an appointment with the following doctors who perform DRG implantation: Dr. Carlisle, Dr. Araujo, Dr. Dan, Dr. Cortés Patient voiced understanding. [facility] 02-06-2024 Miscellaneous Notes Called and spoke [...] giving him the number to schedule at [facility] to discuss DRG? I'd suggest seeking an appointment with the following doctors who perform DRG implantation: Dr. Carlisle, Dr. Araujo, Dr. Dan, Dr. Moo Heard and Dr. Kamara may do DRG - I'm not sure. Thanks Lela! ----- Message ----- From: Livia Lester PA-C Sent: 02/05/2024 2:07 PM EDT To: Francoise Singletary MD No one on this side of [facility] that I know of does DRG so, we also send to [facility] I would just have Lela call [...] I know who do DRG are at [facility]. How do we refer him there? From what I remember, Van Melendez Costandi, and Moo do DRG - do you know of anyone else? documented in this encounter [facility] 02-06-2024 Telephone encounter Note ----- Message from Francoise Singletary MD sent at 02/05/2024 3:12 PM EDT ----- Do you mind calling him and giving him the number to schedule at [facility] to discuss DRG? I'd suggest seeking an appointment with the following doctors who perform DRG implantation: Dr. Carlisle, Dr. Araujo, Dr. Dan, Dr. Moo Heard and Dr. Kamara may do DRG - I'm not sure. Thanks Lela! ----- Message ----- From: Livia Lester PA-C Sent: 02/05/2024 2:07 PM EDT To: Francoise Singletary MD No one on this side of [facility] that I know of does DRG so, we also send to [facility] I would just have Lela call [...] I know who do DRG are at [facility]. How do we refer him there? From what I remember, Van eMlendez Costandi, and Moo do DRG - do you know of anyone else? [facility] 02-05-2024 Instructions Francoise Singletary MD - 02/05/2024 1:01 PM EDT Thank you for taking the time to come and see me today! Please schedule an appointment for: [facility] Consult Please follow up with [facility] Neurology and Podiatry Please send all of your Podiatry, Neurology, and Pain Management records to us I will refer you to a provider who performs DRG to discuss this Please come back to see me as needed documented in this encounter [facility] 02-05-2024 History of Present illness Narrative Images from the original note were not included. [facility] Pain Management Department Consultation Date: February [...] The patient has seen other pain providers. [facility] Neurology OV 02/01/22 Assessment and Plan 71 [...] has been to many specialists in the [facility] area-over the course of the past 15 [...] outside records. Unfortunately during our appointment today, [facility] was down I was unable to [...] I noted before, he appears today while [facility] was down, and I not have [...] will refer him to a doctor at [facility] for consideration of DRG and to discuss the risks, benefits, alternatives. Diagnostics/Referrals: -Chronic Pain Recovery Program referral Referral to [facility] podiatry, neurology for second opinions 2. [...] Marital Status: Unknown Medical Decision Making The [facility] EMR was reviewed during the visit [...] the shared EMR documented in this encounter [facility] 02-05-2024 Note HNO ID: [id number] Author: FRANCOISE SINGLETARY MD Service: ? Author Type: Physician Type: Progress Notes Filed: 02/05/2024 15:14 Note Text: [facility] Pain Management Department Consultation Date: February [...] The patient has seen other pain providers. [facility] Neurology OV 02/01/22 Assessment and Plan 71 [...] has been to many specialists in the [place] area-over (more content not included)... [facility] 01-01-2024 Note [id number] [facility] 09-11-2023 Evaluation note Encounter Date [...] 6.9% 2. Blood glucose levels according to Evoleen 3 cgm download 08/29/23-09/11/23 : Avg glucose 154. >250-3%, >180-20%, 70-180-71%, <70-5%, <54-1%, GMI 7%. 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 Pt reports he did contact [employer] and rc'd replacement sensor. Reviewed with pt [...] Current use of insulin (ICD-10 - Z79.4) [facility] Other 11-16-2023 Evaluation note* Encounter Date Diagnosis Assessment Notes Treatment Notes Treatment Clinical Notes Aug, Cellulitis of right lower extremity (ICD-10 - L03.115) I did thoroughly review all the studies from [place]. I do not have any images to [...] include weight loss exercise and compression therapy. [facility] Other 09-01-2023 Evaluation note* Encounter Date Diagnosis Assessment Notes Treatment Notes Treatment Clinical Notes Jun, Type 2 diabetes mellitus with diabetic chronic kidney disease (ICD-10 - E11.22) Dong and his came in today for [employer] baylee 3 training and refresher on his [...] He was given a no cut Grif Crown Ironer Operator to try and a brochure to buy them online. We discussed the Novolog pen and that he is to use it if his BG before a meal is greater than 150. He was able to dial the pen and knows how to put the pen needle on and deliver the dose. 30 minutes were spent educating the patient by Kamlesh Sparrow RN, [facility][NOTE 2]. [facility] Other 05-30-2023 Evaluation note* Encounter Date Diagnosis [...] February, Metabolic syndrome X (ICD-10 - E88.81) [facility] Other 05-09-2023 Evaluation note* Encounter Date Diagnosis [...] or diabetes medication issues. 6. Prescriptions: IGLESIA JESSIE: Pioglitizone sent. 7. Prescriptions will not [...] last visit, continue with weight loss efforts [facility] Other 04-14-2023 Evaluation note* Encounter Date Diagnosis [...] the following goals: Add flavors to vegetables [facility] Other 03-30-2023 Evaluation note* Encounter Date Diagnosis [...] Dec, Metabolic syndrome X (ICD-10 - E88.81) [facility] Other 03-23-2023 NoteCARDIAC STRESS TEST Requesting Physician: [...] reported nuclear myocardial perfusion imaging.[id number]* Encounter Date Diagnosis Assessment Notes [...] following goals: 1) Increase vegetables at dinner [facility] Other 02-14-2023 Evaluation note* Encounter Date Diagnosis [...] him and his by Kamlesh Sparrow RN, [facility][NOTE 2]. Reviewed cgm download 11/08/22-11/20/22: Avg glucose 171. >250-1%, >180-30%, 70-180-69%, <70-0%, <540%. CV 15..2%. [employer] QUALITY ENGINEER MEDICAL DEVICE, DIP TUBE ASSEMBLER MACHINE-C, BC-ADM [facility] Other 02-10-2023 Evaluation note* Encounter Date Diagnosis [...] Nov, Metabolic syndrome X (ICD-10 - E88.81) [facility] Other 01-30-2023 Evaluation note* Encounter Date Diagnosis [...] medication issues. 6. Prescriptions: Acarbose sent to [facility]. Sample baylee 2 cgm given today. [...] Oct, Other Dong was giv en a [employer] Dre[employer] 2 sensor and an office owned, loaner [place]. His phone was not compatible with Baylee 2 or 3, or Dexcom G6. He previously wore the Baylee 14 day system and did not need training on applying the device. I did train him on the use of the reader. He was vgiven samples of Grif Making Line Worker and Skin Tac to help keep the device in place. 45 minutes were spent educating the patient by Kamlesh Sparrow RN, [facility][NOTE 2]. [facility] Other 01-10-2023 Evaluation note* Encounter Date Diagnosis [...] for full weight management program2) Try roasted marino peppers (recipe provided) [facility] Other 11-11-2022 NotePROCEDURE: XR FOOT RT MIN [...] Electronically authenticated by: BRITTNY MORALES Date: 2022-08-19 06:17[facility]11-02-2022 Evaluation note* Encounter Date Diagnosis Assessment [...] nuts or cheese + crackers -Only likes equatorial guinean cheese,-Recommended 15g or less for snacks; so [...] likes those-Increase vegetable intake-Vegetables: corn, peas, carrots [facility] Other 10-19-2022 Evaluation note* Encounter Date Diagnosis [...] referral to Dr. Kelley for weight management [employer] Other 08-31-2022 Evaluation note* Encounter Date Diagnosis [...] and his would cook it for him [facility] Other 07-14-2022 Evaluation note* Encounter Date Diagnosis [...] improved glycemia. Pt would likek referral to powerhouse mechanic helper. Note pt has intolerance to glp1 class [...] of glucose/bp control to prevent further nephropathy [facility] Other 01-13-2022 Evaluation note* Encounter Date Diagnosis [...] medication issues. 6. Prescriptions: Pioglitazone sent to [facility]. [address], 2022 Hyperlipidemia, unspecified hyperlipidemia type (ICD-10 - E78.5) [...] brochure given today. Recommend call if interested. [facility] Other 10-13-2021 Evaluation note* Encounter Date Diagnosis Assessment Notes Treatment Notes Treatment Clinical Notes Jul, SANTANA (nonalcoholic steatohepatitis) (ICD-10 - K75.81) Jul, Other [facility] INDICATED ABOVE F/U HERE PRN [facility] Other Evaluation noteNo [employer]Nort [employer] Other Evaluation noteNo assessment information available [facility] Work Phone: [facility] note* Diagnosis Chronic toe pain, right foot- Primary 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, not stated as uncontrolled Class 3 severe obesity with serious comorbidity and body mass index (BMI) of 40.0 to 44.9 in adult, unspecified obesity type (HCC) documented in this encounter [facility] note* Diagnosis Chronic toe pain, right foot- [...] right lower limb [facility] [place]* Diagnosis Adjustment disorder with depressed mood- Primary Complex regional pain syndrome type II of right lower limb Chronic toe pain, right foot Class 3 severe obesity with serious comorbidity and body mass index (BMI) of 40.0 to 44.9 in adult, unspecified obesity type (HCC) [facility] [place] [facility]* Diagnosis Adjustment disorder with depressed mood- Primary Complex regional pain syndrome type II of right lower limb Chronic toe pain, right foot [facility] [place] [facility] Diagnosis Adjustment disorder with depressed mood- Primary Complex regional pain syndrome type II of right lower limb Chronic toe pain, right foot [facility] Diagnosis Complex regional pain syndrome type II of right lower limb [facility] Diagnosis Acquired deformity of right toe- Primary Diabetes 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, 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 fdc insulin use (CMS/HCC) documented in this encounter [facility]* Diagnosis Internal derangement of left shoulder- Primary Arthritis of left acromioclavicular joint Complete tear of left rotator cuff, 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 traumatic Left shoulder pain, unspecified chronicity documented in this encounter [facility]* Diagnosis Acquired deformity of right toe- Primary Diabetes 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, 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 fdc insulin use (CMS/HCC) Amputation of right great toe (CMS/HCC) documented in this encounter [facility]* Diagnosis Amputation of toe of right foot (CMS/HCC)- Primary Diabetes 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, 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 fdc insulin use (CMS/HCC) Pain due to onychomycosis of toenails of both feet documented in this encounter [facility]* Diagnosis Internal derangement of left shoulder- Primary Complete tear of left rotator cuff, 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 traumatic documented in this encounter [facility]* Diagnosis Complex regional pain syndrome type II of right lower limb Chronic toe pain, right foot Class 3 severe obesity with serious comorbidity and body mass index (BMI) of 40.0 to 44.9 in adult, unspecified obesity type (HCC) [facility] [place] [facility]* Diagnosis Right foot pain- Primary Pain in soft tissues of limb Diabetic polyneuropathy associated with type 2 diabetes mellitus (CMS/HCC) documented in this encounter [facility]* Diagnosis Acquired deformity of right toe- Primary Left shoulder pain, unspecified chronicity- Primary Arthritis of left acromioclavicular joint Glenohumeral arthritis, left Impingement of left shoulder documented in this encounter [facility]* Diagnosis Acquired deformity of right toe- Primary Diabetes 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, 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 fdc insulin use ([facility]) Venous insufficiency Unspecified venous (peripheral) insufficiency Non-pressure chronic ulcer of other part of right lower leg with fat layer exposed ([facility]) Left shoulder pain, unspecified chronicity- Primary Arthritis of left acromioclavicular joint Glenohumeral arthritis, left Impingement of left shoulder documented in this encounter [facility]* Diagnosis Left shoulder pain, unspecified chronicity- Primary Arthritis of left acromioclavicular joint Glenohumeral arthritis, left Impingement of left shoulder documented in this encounter [facility]* Diagnosis Acquired deformity of right toe- Primary Diabetes 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, 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 fdc insulin use ([facility]) Amputation of right great toe ([facility]) documented in this encounter [facility]* Diagnosis Acquired deformity of right toe Left shoulder pain, unspecified chronicity- Primary Arthritis of left acromioclavicular joint Glenohumeral arthritis, left Impingement of left shoulder documented in this encounter [facility]* Diagnosis Left shoulder pain, unspecified chronicity- Primary Arthritis of left acromioclavicular joint Glenohumeral arthritis, left Impingement of left shoulder Internal derangement of left shoulder documented in this encounter [facility] note* Diagnosis Acquired deformity of right toe- Primary documented in this encounter [facility] note* Diagnosis Internal derangement of left shoulder- Primary documented in this encounter [facility]* Diagnosis Diabetes 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, 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 certifier insulin use ([facility])- Primary Pain due to onychomycosis of toenails of both feet Venous insufficiency Unspecified venous (peripheral) insufficiency documented in this encounter [facility] HealthcareHistory general Narrative - Reported* Type Description [...] first metatarsal 2-8-19 Hospitalization History see above [facility] Other Histnxi general Narrative - Reported* Type Description Date [...] Foot Surgery 10/27/2021 Hospitalization History see above [facility] Other Hismtlf general Narrative - Reported* Type Description Date [...] Foot Surgery 10/27/2021 Hospitalization History see above [facility] Other Reason for visit Narrative* Consultation (Routine) - Closed Specialty Diagnoses / Procedures Referred By Segundo t Referred To Contact Neurology Diagnoses Neuropathic pain, MRI / labs @ [facility] , ref by Dr Hickman Procedures [place] OFFICE/OUTPATIENT [facility] 30 MINUTES NEURO NEW PATIENT Haider Hickman MD [address] [place] [address] Phone: tel: fax: Matthew May DO [address] [address] Phone: tel: fax: Referral ID Status Reason Start Date Expiration Date V isits Requested Visits Authorized [id number] Closed Consult and Treat 08/22/2024 02/18/2025 1 [...] wo IV contrast Chelle Brandon NP [address] [facility] [address] [place] [address] Referral ID Status Reason Start Date Expiration Date V isits Requested Visits Authorized [id number] Pending Review 07/01/2024 12/28/2024 1 1 Specialty Diagnoses / Procedures Referred By Contac t Referred To Contact Orthopaedic Surgery Diagnoses Impingement of left shoulder Procedures L Inj/Asp: L subacromial bursa Chelle Brandon NP [address] [facility] [address] [place], [place] [id number] Referral ID Status Reason Start Date Expiration Date V isits Requested Visits Authorized [id number] Authorized 06/12/2024 12/09/2024 1 1 Specialty Diagnoses / Procedures Referred By Contac t Referred To Contact Diagnoses Acquired deformity of right toe Shyam Cam, DPM FACFAS [address] [place] [address] Referral ID Status Reason Start Date Expiration Date V isits Requested Visits Authorized [id number] Pending Review 06/19/2024 12/16/2024 1 1 Specialty Diagnoses / Procedures Referred By Contac t Referred To Contact Diagnoses Complex regional pain syndrome type II of right lower limb Chronic toe pain, right foot Class 3 severe obesity with serious comorbidity and body mass index (BMI) of 40.0 to 44.9 in adult, unspecified obesity type (HCC) Procedures PROVIDER ORDERED FOLLOW UP OFFICE/OUTPATIENT [facility] MDM 60 MINUTES Chiqui Robles MD [address] [place] [address] Referral ID Status Reason Start Date Expiration Date Visits Requested Visits Authorized [id number] Authorized PCP Requested Referral 06/25/2024 04/24/2025 1 1 Specialty Diagnoses / Procedures Referred By Contac t Referred To Contact Infectious Diseases Diagnoses Dermatitis of lower extremity Procedures CONSULT TO INFECTIOUS DISEASES OFFICE/OUTPATIENT [facility] 60 MINUTES Herberth Araujo MD, PhD [address] [phone] Referral ID Status Reason Start Date Expiration Date Visits Requested Visits Authorized [id number] Authorized PCP Requested Referral 02/29/2024 02/28/2025 1 1 Specialty Diagnoses / Procedures Referred By Contac t Referred To Contact Podiatry Diagnoses Chronic toe pain, right foot Painful diabetic neuropathy (HCC) Procedures CONSULT TO PODIATRY OFFICE/OUTPATIENT [facility] 60 MINUTES Francoise Singletary MD [address] [place] [address] Referral ID Status Reason Start Date Expiration Date Visits Requested Visits Authorized [id number] Authorized PCP Requested Referral 02/05/2024 02/04/2025 1 1 Specialty Diagnoses / Procedures Referred By Contac t Referred To Contact Neurology Diagnoses Chronic toe pain, right foot Painful diabetic neuropathy (HCC) Procedures CONSULT TO NEUROLOGY OFFICE/OUTPATIENT [facility] 60 MINUTES Francoise Singletary MD [address] [phone] Referral ID Status Reason Start Date Expiration Date Visits Requested Visits Authorized [id number] Authorized PCP Requested Referral 02/05/2024 02/04/2025 1 1 Specialty Diagnoses / Procedures Referred By Contac t Referred To Contact [facility] Diagnoses Chronic toe pain, right foot Painful diabetic neuropathy (HCC) Procedures [facility] ([facility]) OFFICE/OUTPATIENT [facility] 60 MINUTES Francoise Singletary MD [address] [phone] Referral ID Status Reason Start Date Expiration Date Visits Requested Visits Authorized [id number] Pending Review PCP Requested Referral 02/05/2024 02/04/2025 1 1 Additional Source Comments REASON FOR VISIT (unrecogniz ed section and content) Reason Comments Consult Rt foot Reason Comments Established Patient Medication Update Reason Comments Nurse Triage Call Reason Comments New Patient Specialty Diagnoses / Procedures Referred By Contac t Referred To Contact [facility] Diagnoses Complex regional pain syndrome type II of right lower limb Chronic toe pain, right foot Class 3 severe obesity with serious comorbidity and body mass index (BMI) of 40.0 to 44.9 in adult, unspecified obesity type (HCC) Procedures CONSULT TO [facility] (CHRONIC PAIN) OFFICE/OUTPATIENT NEW HIGH MDM 60 MINUTES Herberth Araujo MD, PhD [address] [place] [address] Referral ID Status Reason Start Date Expiration Date Visits Requested Visits Authorized [id number] Pending Review PCP Requested Referral 04/03/2024 04/03/2025 [...] 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 traumatic Arlen Sanchez, DO [address] [address] Phone: tel: fax: Khai Heard, DO [address] [facility] [place] [address] Phone: tel: fax: Referral ID Status Reason Start Date Expiration Date V isits Requested Visits Authorized [id number] Closed Consult and Treat 07/23/2024 01/19/2025 1 [...] HIGH MDM 60 MINUTES Chiqui Robles MD [address] [place] [address] Referral ID Status Reason Start Date Expiration Date V isits Requested Visits Authorized [id number] Closed PCP Requested Referral 06/25/2024 04/24/2025 1 [...] content) DATE CREATED AUTHOR 02/20/[address] [facility] DATE CREATED AUTHOR AUTHOR'S ORGANIZ ATION 11/22/2023 [facility] DATE CREATED AUTHOR AUTHOR'S ORGANIZ ATION 03/09/[address] [facility] DATE CREATED AUTHOR AUTHOR'S ORGANIZ ATION 03/16/2024 [facility] DATE CREATED AUTHOR AUTHOR'S ORGANIZ ATION 07/19/[address] [facility] DATE CREATED AUTHOR AUTHOR'S ORGANIZ ATION 08/28/2024 [facility] DATE CREATED AUTHOR AUTHOR'S ORGANIZ ATION 09/06/2024 [facility] DATE CREATED AUTHOR AUTHOR'S ORGANIZ ATION 09/12/[address] [facility] DATE CREATED AUTHOR AUTHOR'S ORGANIZ ATION 09/19/2024 [facility] DATE CREATED AUTHOR AUTHOR'S ORGANIZ ATION 10/20/2024 [facility] DATE CREATED AUTHOR AUTHOR'S ORGANIZ ATION 10/22/2024 [facility] DATE CREATED AUTHOR AUTHOR'S ORGANIZ ATION 11/05/2024 [facility] DATE CREATED AUTHOR AUTHOR'S ORGANIZ ATION 11/06/2024 [facility] Care Teams (unrecognized sec tion and [...] September 11, 2023 End: September 11, 2023 [employer] Relationship Specialty Start Date End Date Miguelangel Mac MD [address] [address] [address] [place] [address] Referring Pain Management 01/29/24 [employer] Relationship Specialty Start Date End Date Miguelangel Mac MD [address] [address] [address] [place] [address] Referring Pain Management 01/29/24 [employer] Relationship Specialty Start Date End Date Miguelangel Mca MD [address] [address] [address] [place] [address] Referring Pain Management 01/29/24 [employer] Relationship Specialty Start Date End Date Miguelangel Mac MD [address] [place] [address] Referring Pain Management 01/29/24 [employer] Relationship Specialty Start Date End Date Haider Hickman MD [address] [place] [address] PCP - General Family Medicine 03/26/24 Miguelangel Mac MD [address] [place] [address] Referring Pain Management 01/29/24 [employer] Relationship Specialty Start Date End Date Haider Hickman MD [address] [place] [address] PCP - General Family Medicine 03/26/24 Miguelangel Mac MD [address] [place] [address] Referring Pain Management 01/29/24 [employer] Relationship Specialty Start Date End Date Haider Hickman MD [address] [place] [address] PCP - General Family Medicine 03/26/24 Miguelangel Mac MD [address] [place] [address] Referring Pain Management 01/29/24 [employer] Relationship Specialty Start Date End Date Haider Hickman MD [address] [place] [address] PCP - General Family Medicine 03/26/24 Miguelangel Mac MD [address] [place] [address] Referring Pain Management 01/29/24 [employer] Relationship Specialty Start Date End Date Haider Hickman MD [address] [place] [address] PCP - General Family Medicine 03/26/24 Miguelangel Mac MD [address] [place] [address] Referring Pain Management 01/29/24 [employer] Relationship Specialty Start Date End Date Haider Hickman MD [address] [place] [address] PCP - General Family Medicine 03/26/24 Miguelangel Mac MD [address] [place] [address] Referring Pain Management 01/29/24 [employer] Relationship Specialty Start Date End Date Haider Hickman MD [address] [place] [address] PCP - General Family Medicine 05/09/24 [employer] Relationship Specialty Start Date End Date Haider Hickman MD [address] [place] [address] PCP - General Family Medicine 05/09/24 [employer] Relationship Specialty Start Date End Date Haider Hickman MD [address] [facility] [place] [address] PCP - General Family Medicine 05/09/24 [employer] Relationship Specialty Start Date End Date Haider Hickman MD [address] [place] [facility] [place] [address] PCP - General Family Medicine 05/09/24 [employer] Relationship Specialty Start Date End Date Haider Hickman MD [address] [place] [facility] [place] [address] PCP - General Family Medicine 05/09/24 [employer] Relationship Specialty Start Date End Date Haider Hickman MD [address] [facility] [place] [address] PCP - General Family Medicine 03/26/24 Miguelangel Mac MD [address] [place] [address] 1 [address] [place] [address] Referring Pain Management 01/29/24 [employer] Relationship Specialty Start Date End Date Haider Hickman MD [address] [place] [facility] [place] [address] PCP - General Family Medicine 05/09/24 [employer] Relationship Specialty Start Date End Date Haider Hickman MD [address] [place] [facility] [place] [address] PCP - General Family Medicine 05/09/24 [employer] Relationship Specialty Start Date End Date Haider Hickman MD [address] [place] [facility] [place] [address] PCP - General Family Medicine 05/09/24 [employer] Relationship Specialty Start Date End Date Haider Hickman MD [address] [place] [address] PCP - General Family Medicine 05/09/24 [employer] Relationship Specialty Start Date End Date Haider Hickman MD [address] [place] [address] PCP - General Family Medicine 05/09/24 [employer] Relationship Specialty Start Date End Date Haider Hickman MD [address] [place] [address] PCP - General Family Medicine 05/09/24 [employer] Relationship Specialty Start Date End Date Haider Hickman MD [address] [place] [address] PCP - General Family Medicine 05/09/24 [employer] Relationship Specialty Start Date End Date Haider Hickman MD [address] [place] [address] PCP - General Family Medicine 05/09/24 [employer] Relationship Specialty Start Date End Date Haider Hickman MD [address] [place] [address] PCP - General Family Medicine 05/09/24 [employer] Relationship Specialty Start Date End Date Haider Hickman MD [address] [place] [address] PCP - General Family Medicine 05/09/24 [employer] Relationship Specialty Start Date End Date Haider Hickman MD [address] [place] [id number] PCP - General Family Medicine 05/09/24 Goals [...] or prosecute any alcohol or drug abuse patient.[facility] the event this information is protected by the Federal Confidentiality of Alcohol and Drug Abuse Patient Records regulations: The Federal rules restrict any use of the information to criminally investigate or prosecute any alcohol or drug abuse patient.[facility] the event this information is protected by the Federal Confidentiality of Alcohol and Drug Abuse Patient Records regulations: The Federal rules restrict any use of the information to criminally investigate or prosecute any alcohol or drug abuse patient.[facility] the event this information is protected by the Federal Confidentiality of Alcohol and Drug Abuse Patient Records regulations: The Federal rules restrict any use of the information to criminally investigate or prosecute any alcohol or drug abuse patient.[facility] the event this information is protected by the Federal Confidentiality of Alcohol and Drug Abuse Patient Records regulations: The Federal rules restrict any use of the information to criminally investigate or prosecute any alcohol or drug abuse patient.[facility] the event this information is protected by the Federal Confidentiality of Alcohol and Drug Abuse Patient Records regulations: The Federal rules restrict any use of the information to criminally investigate or prosecute any alcohol or drug abuse patient.[facility] the event this information is protected by the Federal Confidentiality of Alcohol and Drug Abuse Patient Records regulations: The Federal rules restrict any use of the information to criminally investigate or prosecute any alcohol or drug abuse patient.[facility] the event this information is protected by the Federal Confidentiality of Alcohol and Drug Abuse Patient Records regulations: The Federal rules restrict any use of the information to criminally investigate or prosecute any alcohol or drug abuse patient.[facility] the event this information is protected by the Federal Confidentiality of Alcohol and Drug Abuse Patient Records regulations: The Federal rules restrict any use of the information to criminally investigate or prosecute any alcohol or drug abuse patient.[facility] the event this information is protected by the Federal Confidentiality of Alcohol and Drug Abuse Patient Records regulations: The Federal rules restrict any use of the information to criminally investigate or prosecute any alcohol or drug abuse patient.[facility] the event this information is protected by the Federal Confidentiality of Alcohol and Drug Abuse Patient Records regulations: The Federal rules restrict any use of the information to criminally investigate or prosecute any alcohol or drug abuse patient.[facility] the event this information is protected by the Federal Confidentiality of Alcohol and Drug Abuse Patient Records regulations: The Federal rules restrict any use of the information to criminally investigate or prosecute any alcohol or drug abuse patient.[facility] FOR RECORDS PERTAINING TO PATIENTS WHO [...] BE BASED ON THE PRIMARY CLINICAL RECORDS. [facility] [employer] [facility]. provides no warranty or guarantee of the accuracy or completeness of information in this document.
--- NOTE | 2024-11-09 16:09 | PC.NURSE ---
You RN and Haseeb PA at bedside with pt, bleeding is controlled
[2024-11-09] MEDS: LIDOCAINE HCL 1%-EPINEPHRINE 1:100,000 20 ML MDV INJ (16:31)
[2024-11-09] MEDS: TIZANIDINE HCL 4 MG TABLET PO (16:34)
--- NOTE | 2024-11-09 16:54 | ED_ITS ---
HPI - Wound/Laceration General Chief Complaint: Wound/Laceration Stated Complaint: LACERATION Time Seen by Provider: 11/09/24 15:54 Source: patient Mode of arrival: Wheelchair Limitations: no limitations History of Present Illness HPI narrative: Patient is a 74-year-old male presents to the ER for evaluation of laceration to the right forearm patient states he was moving his who was on a ladder when he struck his arm against some slate that was stacked up. Continuous bleeding on arrival controlled with direct pressure patient unsure of his last tetanus shot he reports minimal to no pain but advised that he is a diabetic. He denies any other injury he is right-hand dominant. Centimeter laceration noted to the right ulnar aspect of his forearm, He denies n/t or difficulty moving any fingers or hand/ wrist. Extremity Location: Right: forearm Place: Reports home Patient tetanus UTD: No Context: Reports accidental Associated symptoms: Reports none Related Data Home Medications ?Medication ?Instructions ?Recorded ?Confirmed acarbose 50 mg tablet 50 mg PO TID 05/24/23 09/09/24 aspirin 81 mg tablet,delayed 81 mg PO DAILY 05/24/23 09/09/24 release (Adult Aspirin Regimen) bupropion HCl 150 mg tablet,12 hr 150 mg PO DAILY 05/24/23 09/09/24 sustained-release losartan 50 mg tablet 75 mg PO DAILY 05/24/23 09/09/24 metoprolol tartrate 50 mg tablet 50 mg PO BID 05/24/23 09/09/24 (Lopressor) nitroglycerin 0.4 mg sublingual 0.4 mg sublingual Q5M 05/24/23 09/09/24 tablet pioglitazone 30 mg tablet 60 mg PO DAILY 05/24/23 09/09/24 simvastatin 40 mg tablet 40 mg PO DAILY 05/24/23 09/09/24 sitagliptin phosphate 50 mg tablet 50 mg PO DAILY 05/24/23 09/09/24 (Januvia) sodium bicarbonate 650 mg tablet 650 mg PO TID PRN stomach upset 05/24/23 09/09/24 tizanidine 4 mg tablet 4 mg PO DAILY PRN muscle spasticity 05/24/23 09/09/24 venlafaxine 37.5 mg 37.5 mg PO BID 05/24/23 09/09/24 capsule,extended release 24 hr pregabalin 75 mg capsule mg QID 09/03/24 Previous Rx's ?Medication ?Instructions ?Recorded acetaminophen 300 mg-codeine 30 mg 1 tab PO Q6H PRN pain 5 days #20 05/25/24 tablet tabs pregabalin 100 mg capsule (Lyrica) 100 mg PO QID #120 caps 09/19/24 tizanidine 4 mg capsule See Rx Instructions .Route 09/19/24 .COMPLEX PRN muscle spasticity #180 caps pregabalin 100 mg capsule (Lyrica) See Rx Instructions .Route 10/24/24 .COMPLEX #35 caps tizanidine 4 mg tablet 4 mg PO QID PRN muscle spasticity 10/24/24 #120 tabs cephalexin 500 mg capsule 500 mg PO BID 7 days #14 caps 11/09/24 Allergies Allergy/AdvReac Type Severity Reaction Status Date / Time cefuroxime Allergy Unknown Unknown Verified 09/09/24 09:08 diflunisal (From Dolobid) Allergy Unknown Unknown Verified 09/09/24 09:08 dulaglutide (From Trulicity) Allergy Unknown Unknown Verified 09/09/24 09:08 liraglutide (From Victoza) Allergy Unknown Unknown Verified 09/09/24 09:08 rofecoxib (From Vioxx) Allergy Unknown Unknown Verified 09/09/24 09:08 celecoxib (From Celebrex) Allergy Unknown Verified 09/09/24 09:08 metformin Allergy Unknown Verified 09/09/24 09:08 naproxen (From Naprosyn) Allergy Unknown Verified 09/09/24 09:08 NSAIDS (Non-Steroidal Allergy Unknown Verified 09/09/24 09:08 Anti-Inflamma sulindac (From Clinoril) Allergy Unknown Verified 09/09/24 09:08 axetil Allergy Unknown Unknown Uncoded 09/09/24 09:08 Review of Systems ROS Constitutional Denies: fever or chills Ears, nose, mouth, and throat Denies: throat pain or neck pain Cardiovascular Denies: chest pain, palpitations or leg pain with exertion Respiratory Denies: shortness of breath Gastrointestinal Denies: abdominal pain Musculoskeletal Reports: other (history of peripheral neuropathy, has trouble with his gait. Toe amputation); Denies: back pain or neck pain Integumentary/Breast Denies: rash Neurological Denies: headache Psychiatric Denies: anxiety Endocrine Denies: excessive urination Hematologic/Lymphatic Denies: easy bruising PFSH [facility] Medical History H/O nephrolithotomy with removal of calculi ?Z98.890 - Other specified postprocedural states (ICD-10) ?Z87.442 - Personal history of urinary calculi (ICD-10) Osteoarthritis ?M19.90 - Unspecified osteoarthritis, unspecified site (ICD-10) Amputation of toe ?S98.139A - Complete traumatic amputation of one unspecified lesser toe, initial encounter (ICD-10) H/O renal calculi ?Z87.442 - Personal history of urinary calculi (ICD-10) Obstructive sleep apnea on CPAP ?G47.33 - Obstructive sleep apnea (adult) (pediatric) (ICD-10) Neck pain ?M54.2 - Cervicalgia (ICD-10) Low back pain ?M54.50 - Low back pain, unspecified (ICD-10) Obesity ?E66.9 - Obesity, unspecified (ICD-10) Diabetes ?E11.9 - Type 2 diabetes mellitus without complications (ICD-10) Enlarged prostate ?N40.0 - Benign prostatic hyperplasia without lower urinary tract symptoms (ICD-10) Hypertension ?I10 - Essential (primary) hypertension (ICD-10) Surgical History H/O heart artery stent ?Z95.5 - Presence of coronary angioplasty implant and graft (ICD-10) Social History Little interest or pleasure in doing things: not at all Feeling down, depressed, or hopeless: not at all Exam Narrative Exam Narrative: Nurse's notes and vital signs reviewed. Patient is not hypoxic. General: The patient appears well and in no apparent distress. Patient is resting comfortably on cart. Skin: Warm, dry, no pallor noted. 11 cm laceration right ulnar forearm mild venous bleeding. Muscle fascia seen, but not violated. Head: Normocephalic, atraumatic Eye: Normal conjunctiva Respiratory: Patient is in no distress Musculoskeletal: The Right hand and wrist shows no obvious deformity. There was no swelling noted. The patient had full rom of hand and wrist. Specifically full motion and sensation in ulnar nerve distribution with motion of all digits. The patient had tenderness noted to laceration/ compartments soft. . The patient had no tenderness in the anatomical snuff box. The patient had no pain with axial loading of the thumb. Pulses are intact at brachial and radial and ulnar 2+. There was no deficit at the elbow or shoulder. The patient has normal capillary refill to all distal digits. The patient has no evidence of cyanosis or mottling. The patient is able to flex and extend all digits without difficulty. Neurological: A&O x4, normal sensory, normal motor Psychiatric: Cooperative Constitutional Vital Signs, click to edit/add: Last Vital Signs Temp 97.6 F 11/09/24 15:43 Pulse 82 11/09/24 15:43 Resp 16 11/09/24 15:43 BP 133/75 11/09/24 15:43 Pulse Ox 95 11/09/24 15:43 O2 Del Method Room Air 11/09/24 15:43 Course Vital Signs Vital signs: Vital Signs Temperature 97.6 F 11/09/24 15:43 Pulse Rate 82 11/09/24 15:43 Respiratory Rate 16 11/09/24 15:43 Blood Pressure 133/75 11/09/24 15:43 Pulse Oximetry 95 11/09/24 15:43 Oxygen Delivery Method Room Air 11/09/24 15:43 Temperature 97.6 F 11/09/24 15:43 Pulse Rate 82 11/09/24 15:43 Respiratory Rate 16 11/09/24 15:43 Blood Pressure 133/75 11/09/24 15:43 Pulse Oximetry 95 11/09/24 15:43 Oxygen Delivery Method Room Air 11/09/24 15:43 MDM - Wound/Laceration MDM Narrative Medical decision making narrative: Patient presents with a complex laceration extensively irrigated given his history of diabetes it was closed with vertical mattress and horizontal mattress sutures to approximate the wound well and he will be covered with Keflex out of an abundance of precaution I specifically discussed his medication allergy list with so approximating and the and patient both feel he is not allergic to this antibiotic and do not report any history of lip swelling or anaphylactic reaction with antibiotic medications. We discussed the need to follow-up with PCP in 2 to 3 days for wound recheck and likely suture removal in 10 to 14 days pending further healing. We discussed wound care he is not to submerge the wound we discussed keeping it clean dry and covered and to return to the ER if any symptoms develop or symptoms worsen he does not appear to have struck any of the deeper structures in on direct inspection or physical exam. Take Tylenol pain. During his stay patient patient began experiencing chronic toe pain which she reports taking tizanidine for and requested this pill as he typically takes it at the same time each day for his neuropathy. We discussed this medication can put him at increased risk for falls as he is taking it multiple times a day. He was encouraged to discuss this further with his family doctor but has seen multiple foot and ankle specialist and cannot come to a conclusion on his toe.... The patient is to followup with primary care physician in next 2-3 days wound recheck and then suture removal in 10-14 days pending healing or to return to the emergency department should any of the signs or symptoms worsen or new symptoms develop. Patient had questions answered. The patient agrees with the following Diagnosis and Treatment plan and the patient will be discharged home. Discharge Plan Discharge Chief Complaint: Wound/Laceration Clinical Impression: Laceration of forearm, right, complicated Patient Disposition: Home, Self-Care Time of Disposition Decision: 17:07 Condition: Good Prescriptions / Home Meds: New cephalexin 500 mg capsule 500 mg PO BID 7 Days Qty: 14 0RF No Action metoprolol tartrate [Lopressor] 50 mg tablet 50 mg PO BID bupropion HCl 150 mg tablet sustained-release 12 hr 150 mg PO DAILY venlafaxine 37.5 mg capsule,extended release 24hr 37.5 mg PO BID acarbose 50 mg tablet 50 mg PO TID Januvia 50 mg tablet 50 mg PO DAILY sodium bicarbonate 650 mg tablet 650 mg PO TID PRN (Reason: stomach upset) aspirin [Adult Aspirin Regimen] 81 mg tablet,delayed release (DR/EC) 81 mg PO DAILY losartan 50 mg tablet 75 mg PO DAILY simvastatin 40 mg tablet 40 mg PO DAILY tizanidine 4 mg tablet 4 mg PO DAILY PRN (Reason: muscle spasticity) pioglitazone 30 mg tablet 60 mg PO DAILY nitroglycerin 0.4 mg tablet, sublingual 0.4 mg sublingual Q5M Rx Instructions: do not exceed 3 doses per episode acetaminophen-codeine 300-30 mg tablet 1 tab PO Q6H PRN (Reason: pain) 5 Days Qty: 20 0RF pregabalin [Lyrica] 100 mg capsule 100 mg PO QID Qty: 120 0RF tizanidine 4 mg capsule See Rx Instructions .ROUTE .COMPLEX PRN (Reason: muscle spasticity) Qty: 180 2RF Rx Instructions: 1-2 tabs PO TID PRN pregabalin 75 mg capsule QID pregabalin [Lyrica] 100 mg capsule See Rx Instructions .ROUTE .COMPLEX Qty: 35 0RF Rx Instructions: 100mg BID FOR 14 DAYS 100mg EVERYDAY FOR 7 DAYS THEN DISCONTINUE tizanidine 4 mg tablet 4 mg PO QID PRN (Reason: muscle spasticity) Qty: 120 0RF Print Language: Portuguese Instructions: Laceration (ED) Additional Instructions: Keep wound keep clean and covered, follow-up to PCP for wound recheck in 2 to 3 days recommend suture removal in 10 to 14 days given length of wound likely sutures will be in for 14 days Referrals: Bishop Jasmine MD [Physician] - As needed HAIDER HICKMAN [Primary Care Provider] - As soon as possible Procedures ED Laceration Laceration Laceration 1: Additional comments: Laceration repair: Done under sterile conditions. Complex forearm laceration due to size and full skin thickness. The use of Betadine was used to prep and clean the area. Local injection with lidocaine with 1% was used, approximately 6 cc. The wound was irrigated copiously with normal saline. The wound was explored there was small shingle shavings evident and removed by forcep. no other evidence of foreign material. Muscle fascia of forearm exposed and seen in entirety without penetration. The laceration was approximated 1st with 5-0 vicryl 5 simple interupted to approximate the wound which was about 4cm at mid incision. then with 4-0 nylon. 4 simple interrupted sutures were placed inbetween 3 vertical mattersse sutures and 4 horizontal matteress sutures. . Patient tolerated the procedure well. The patient was neurovascularly intact post. the patient had nonadherent steril dressing applied to the laceration and a dry sterile dressing was place. The patient will need to follow-up in the next 10-14 days for removal.
[2024-11-09] MEDS: CEPHALEXIN 500 MG CAPSULE PO (17:16)
[2024-11-09] MEDS: ADACEL DIPH,PERTUSS(ACELL),TET VAC/PF 0.5 ML ADULT SYRINGE IM (17:16)
== END 2024-11-09 17:29 | disposition home or self-care (01) ==
PROVIDERS: Emergency Provider Emergency Medicine; PCP Family Medicine
DX: S51.811A Laceration without foreign body of right forearm, initial encounter (principal); W26.8XXA Contact with other sharp object(s), not elsewhere classified, initial encounter; E11.42 Type 2 diabetes mellitus with diabetic polyneuropathy; Z79.84 Long term (current) use of oral hypoglycemic drugs; Z95.5 Presence of coronary angioplasty implant and graft; Z79.899 Other long term (current) drug therapy; Z23 Encounter for immunization
CPT/HCPCS: 90471; 90715; 99284

== ENCOUNTER 2024-12-02 12:39 | Outpatient (OUT) | payer MEDICARE, OTHER, SELFPAY ==
--- NOTE | 2024-12-02 14:09 | PM.CN ---
Consult Note: HPI Data of Consult Patient: known to practice within the last 3 years Consult date: 12/02/24 Requesting Physician: Miguelangel Mac MD Primary Care Provider: HAIDER HICKMAN Consult Narrative Reason for consult: right toe pain Narrative: 74yom who presents for assessment. continues to have significant right toe pain. has undergone a variety of therapies, medications, injections, without benefit. uses tizanidine frequently, which helps somewhat. was recommended ketamine infusion by [facility], but has not tried yet. cc:: CC: Miguelangel Mac MD Review of Systems ROS Status of ROS 10 or more systems reviewed and unremarkable except as noted in history and below [facility] Medical History H/O nephrolithotomy with removal of calculi ?Z98.890 - Other specified postprocedural states (ICD-10) ?Z87.442 - Personal history of urinary calculi (ICD-10) Osteoarthritis ?M19.90 - Unspecified osteoarthritis, unspecified site (ICD-10) Amputation of toe ?S98.139A - Complete traumatic amputation of one unspecified lesser toe, initial encounter (ICD-10) H/O renal calculi ?Z87.442 - Personal history of urinary calculi (ICD-10) Obstructive sleep apnea on CPAP ?G47.33 - Obstructive sleep apnea (adult) (pediatric) (ICD-10) Neck pain ?M54.2 - Cervicalgia (ICD-10) Low back pain ?M54.50 - Low back pain, unspecified (ICD-10) Obesity ?E66.9 - Obesity, unspecified (ICD-10) Diabetes ?E11.9 - Type 2 diabetes mellitus without complications (ICD-10) Enlarged prostate ?N40.0 - Benign prostatic hyperplasia without lower urinary tract symptoms (ICD-10) Hypertension ?I10 - Essential (primary) hypertension (ICD-10) Surgical History H/O heart artery stent ?Z95.5 - Presence of coronary angioplasty implant and graft (ICD-10) Social History Little interest or pleasure in doing things: not at all Feeling down, depressed, or hopeless: not at all Meds Home Medications and Allergies Home Medications ?Medication ?Instructions ?Recorded ?Confirmed ?Type acarbose 50 mg tablet 50 mg PO TID 05/24/23 09/09/24 History aspirin 81 mg tablet,delayed 81 mg PO DAILY 05/24/23 09/09/24 History release (Adult Aspirin Regimen) bupropion HCl 150 mg tablet,12 hr 150 mg PO DAILY 05/24/23 09/09/24 History sustained-release losartan 50 mg tablet 75 mg PO DAILY 05/24/23 09/09/24 History metoprolol tartrate 50 mg tablet 50 mg PO BID 05/24/23 09/09/24 History (Lopressor) nitroglycerin 0.4 mg sublingual 0.4 mg sublingual Q5M 05/24/23 09/09/24 History tablet pioglitazone 30 mg tablet 60 mg PO DAILY 05/24/23 09/09/24 History simvastatin 40 mg tablet 40 mg PO DAILY 05/24/23 09/09/24 History sitagliptin phosphate 50 mg tablet 50 mg PO DAILY 05/24/23 09/09/24 History (Januvia) sodium bicarbonate 650 mg tablet 650 mg PO TID PRN stomach upset 05/24/23 09/09/24 History tizanidine 4 mg tablet 4 mg PO DAILY PRN muscle spasticity 05/24/23 09/09/24 History venlafaxine 37.5 mg 37.5 mg PO BID 05/24/23 09/09/24 History capsule,extended release 24 hr acetaminophen 300 mg-codeine 30 mg 1 tab PO Q6H PRN pain 5 days #20 05/25/24 09/09/24 Rx tablet tabs pregabalin 75 mg capsule mg QID 09/03/24 History pregabalin 100 mg capsule (Lyrica) 100 mg PO QID #120 caps 09/19/24 Rx tizanidine 4 mg capsule See Rx Instructions .Route 09/19/24 Rx .COMPLEX PRN muscle spasticity #180 caps pregabalin 100 mg capsule (Lyrica) See Rx Instructions .Route 10/24/24 Rx .COMPLEX #35 caps tizanidine 4 mg tablet 4 mg PO QID PRN muscle spasticity 10/24/24 Rx #120 tabs cephalexin 500 mg capsule 500 mg PO BID 7 days #14 caps 11/09/24 Rx buprenorphine 5 mcg/hour weekly 1 patch transdermal Q7D #4 ea 12/02/24 Rx transdermal patch (Butrans) Allergies Allergy/AdvReac Type Severity Reaction Status Date / Time cefuroxime Allergy Unknown Unknown Verified 09/09/24 09:08 diflunisal (From Dolobid) Allergy Unknown Unknown Verified 09/09/24 09:08 dulaglutide (From Trulicity) Allergy Unknown Unknown Verified 09/09/24 09:08 liraglutide (From Victoza) Allergy Unknown Unknown Verified 09/09/24 09:08 rofecoxib (From Vioxx) Allergy Unknown Unknown Verified 09/09/24 09:08 celecoxib (From Celebrex) Allergy Unknown Verified 09/09/24 09:08 metformin Allergy Unknown Verified 09/09/24 09:08 naproxen (From Naprosyn) Allergy Unknown Verified 09/09/24 09:08 NSAIDS (Non-Steroidal Allergy Unknown Verified 09/09/24 09:08 Anti-Inflamma sulindac (From Clinoril) Allergy Unknown Verified 09/09/24 09:08 axetil Allergy Unknown Unknown Uncoded 09/09/24 09:08 Exam Narrative Exam Narrative: Psych-alert and oriented x 3.? Attentive and appropriate, constitutionally normal, displays normal mood and affect per situation.? There are no obvious deficits in memory, reasoning, or intellect. Examination of the right lower extremity reveals notable hyperpathia and allodynia.? Notable atrophy and diffuse weakness present in the extremity.? There is notable shiny skin with hair loss and abnormal hair growth denoting trophic changes presently.? Asymmetric color and temperature changes are present which denotes sudomotor changes.? Decreased range of motion and strength is noted in the extremity.? Coordination remains intact.? Gait remains non-antalgic. Assessment and Plan Assessment and Plan (1) Pain, foot, right, chronic: (2) Toe pain: Qualifiers: Laterality: right Qualified Code(s): M79.674 - Pain in right toe(s) (3) Complex regional pain syndrome i of right lower limb: Plan 74yom who presents for assessment. failed conservative measures, as noted. discussed that at this point, will have him trial butrans patch 5mcg/hr while his family researches cost of ketamine infusion therapy. he is in agreement. follow up in 4-6 weeks.
== END 2024-12-02 12:40 | disposition home or self-care (01) ==
PROVIDERS: PCP Family Medicine; Visit Provider Anesthesiology
DX: M79.674 Pain in right toe(s) (principal); G90.521 Complex regional pain syndrome I of right lower limb
CPT/HCPCS: G0463

== ENCOUNTER 2024-12-04 14:35 | Outpatient (OUT) | payer MEDICARE, OTHER, SELFPAY ==
--- NOTE | 2024-12-04 14:44 | XR_ITS ---
[facility] [place] [id number] Patient Name: LUISITO WHITMORE MRN: [id number] date: 1950 Sex: M Assigned Patient Location: [facility] Current Patient Location: [facility] Accession/Order Number: [id number] Exam Date: 12/04/2024 18:18 Report Date: 12/04/2024 18:19 At the request of: KENDRA WHITLOCK Procedure: XR elbow RT min 3V XR elbow RT min 3V 12/04/2024 2:59 PM SIGNS AND SYMPTOMS: Acute right elbow pain after fall with swelling over the olecranon PROTOCOL: Frontal, lateral, and oblique radiographs of the right elbow COMPARISON: None FINDINGS: Ossific structures are separate from the olecranon in a configuration suspicious for fracture of olecranon enthesophytes. There is accompanying soft tissue swelling. No joint effusion. No additional evidence of fracture. The joint spaces are preserved. XR/XR elbow RT min 3V IMPRESSION: Ossific structures are separate from the olecranon in a configuration suspicious for fracture of olecranon enthesophytes. There is accompanying soft tissue swelling. Impression dictated by: Shane Chavis M.D.12/04/2024 6:19 PM Dictation Location: [place] [id number] Electronically authenticated by: [id number] Y Date: 12/04/2024 18:19
== END 2024-12-04 14:36 | disposition home or self-care (01) ==
LOC: RAD 14:37
PROVIDERS: PCP Family Medicine; Visit Provider Nurse Practitioner
DX: M25.521 Pain in right elbow (principal); M25.421 Effusion, right elbow
CPT/HCPCS: 73080

== ENCOUNTER 2024-12-05 13:55 | Emergency (ER) | payer MEDICARE, OTHER, SELFPAY ==
[2024-12-05 14:07] VITALS: BP 146/97; PULSE 76; TEMP 36.6; O2SAT 95; BMI 42.3
--- NOTE | 2024-12-05 15:59 | ED_ITS ---
HPI HPI - Extremity Injury (Upper) General Chief Complaint: Extremity Injury, Upper Stated Complaint: FALL Time Seen by Provider: 12/05/24 14:14 Source: patient and family () Mode of arrival: Wheelchair Limitations: no limitations History of Present Illness HPI narrative: 74-year-old male presents to the emergency department with complaint of right elbow injury. Injured shortly prior to arrival. He was going to an office visit, using his walker, when the leg of the walker caught a chair, causing him to lose his balance, falling on the elbow. Complains of pain, tenderness. reports that he was evaluated for elbow pain in the emergency department yesterday, had x-rays taken secondary to who fall couple weeks ago. Denies any other injury, motor or sensory changes, paresthesias. Patient is right-handed Quality:?Blunt trauma Severity:?Mild Timing:?As above, constant Context: Normal setting and activity? Modifying factors:?Pain worse with palpation, movement Associated symptoms: None Related Data Home Medications ?Medication ?Instructions ?Recorded ?Confirmed acarbose 50 mg tablet 50 mg PO TID 05/24/23 09/09/24 aspirin 81 mg tablet,delayed 81 mg PO DAILY 05/24/23 09/09/24 release (Adult Aspirin Regimen) bupropion HCl 150 mg tablet,12 hr 150 mg PO DAILY 05/24/23 09/09/24 sustained-release losartan 50 mg tablet 75 mg PO DAILY 05/24/23 09/09/24 metoprolol tartrate 50 mg tablet 50 mg PO BID 05/24/23 09/09/24 (Lopressor) nitroglycerin 0.4 mg sublingual 0.4 mg sublingual Q5M 05/24/23 09/09/24 tablet pioglitazone 30 mg tablet 60 mg PO DAILY 05/24/23 09/09/24 simvastatin 40 mg tablet 40 mg PO DAILY 05/24/23 09/09/24 sitagliptin phosphate 50 mg tablet 50 mg PO DAILY 05/24/23 09/09/24 (Januvia) sodium bicarbonate 650 mg tablet 650 mg PO TID PRN stomach upset 05/24/23 09/09/24 tizanidine 4 mg tablet 4 mg PO DAILY PRN muscle spasticity 05/24/23 09/09/24 venlafaxine 37.5 mg 37.5 mg PO BID 05/24/23 09/09/24 capsule,extended release 24 hr pregabalin 75 mg capsule mg QID 09/03/24 Previous Rx's ?Medication ?Instructions ?Recorded acetaminophen 300 mg-codeine 30 mg 1 tab PO Q6H PRN pain 5 days #20 05/25/24 tablet tabs pregabalin 100 mg capsule (Lyrica) 100 mg PO QID #120 caps 09/19/24 tizanidine 4 mg capsule See Rx Instructions .Route 09/19/24 .COMPLEX PRN muscle spasticity #180 caps pregabalin 100 mg capsule (Lyrica) See Rx Instructions .Route 10/24/24 .COMPLEX #35 caps tizanidine 4 mg tablet 4 mg PO QID PRN muscle spasticity 10/24/24 #120 tabs cephalexin 500 mg capsule 500 mg PO BID 7 days #14 caps 11/09/24 buprenorphine 5 mcg/hour weekly 1 patch transdermal Q7D #4 ea 12/02/24 transdermal patch (Butrans) hydrocodone 5 mg-acetaminophen 325 1 tab PO Q8H PRN pain 3 days #8 12/05/24 mg tablet tabs Allergies Allergy/AdvReac Type Severity Reaction Status Date / Time cefuroxime Allergy Unknown Unknown Verified 12/05/24 14:07 diflunisal (From Dolobid) Allergy Unknown Unknown Verified 12/05/24 14:07 dulaglutide (From Trulicity) Allergy Unknown Unknown Verified 12/05/24 14:07 liraglutide (From Victoza) Allergy Unknown Unknown Verified 12/05/24 14:07 rofecoxib (From Vioxx) Allergy Unknown Unknown Verified 12/05/24 14:07 celecoxib (From Celebrex) Allergy Unknown Verified 12/05/24 14:07 metformin Allergy Unknown Verified 12/05/24 14:07 naproxen (From Naprosyn) Allergy Unknown Verified 12/05/24 14:07 NSAIDS (Non-Steroidal Allergy Unknown Verified 12/05/24 14:07 Anti-Inflamma sulindac (From Clinoril) Allergy Unknown Verified 12/05/24 14:07 axetil Allergy Unknown Unknown Uncoded 12/05/24 14:07 Opioid HPI Opioid Management Most Recent Pain and Opioid Data: Last Pain Scale 2 09/09/24 08:46 09/09/24 Review of Systems ROS Narrative CONST: Denies activity change, weakness MS: + arthralgias.? + joint swelling. Denies myalgias SKIN: Denies color change, wound NEURO: Denies numbness, paresthesias, weakness PFSH PFSH Medical History H/O nephrolithotomy with removal of calculi ?Z98.890 - Other specified postprocedural states (ICD-10) ?Z87.442 - Personal history of urinary calculi (ICD-10) Osteoarthritis ?M19.90 - Unspecified osteoarthritis, unspecified site (ICD-10) Amputation of toe ?S98.139A - Complete traumatic amputation of one unspecified lesser toe, initial encounter (ICD-10) H/O renal calculi ?Z87.442 - Personal history of urinary calculi (ICD-10) Obstructive sleep apnea on CPAP ?G47.33 - Obstructive sleep apnea (adult) (pediatric) (ICD-10) Neck pain ?M54.2 - Cervicalgia (ICD-10) Low back pain ?M54.50 - Low back pain, unspecified (ICD-10) Obesity ?E66.9 - Obesity, unspecified (ICD-10) Diabetes ?E11.9 - Type 2 diabetes mellitus without complications (ICD-10) Enlarged prostate ?N40.0 - Benign prostatic hyperplasia without lower urinary tract symptoms (ICD-10) Hypertension ?I10 - Essential (primary) hypertension (ICD-10) Surgical History H/O heart artery stent ?Z95.5 - Presence of coronary angioplasty implant and graft (ICD-10) Social History Little interest or pleasure in doing things: not at all Feeling down, depressed, or hopeless: not at all Exam Narrative Exam Narrative: Vital signs noted Nurses notes reviewed CONST: Nontoxic, well appearing, well nourished, in no distress.? HENT: normocephalic, atraumatic. CV: 2+ palpable right radial pulse MS: : +tenderness, mild swelling to the olecrannon.? No tenderness to the radial head, condyles, proximal humerus, clavicle, scapula, hand, forearm.? No ecchymosis, discoloration, crepitus, deformity, instability, warmth.? Active ROM is full with flexion, extension, supination, pronation.? Strength 5/5 NEURO: Sensory intact throughout and distal to the injury SKIN: intact, warm, dry.? No wound PSYCHIATRIC: normal mood, affect Constitutional Vital Signs, click to edit/add: Last Vital Signs Temp 98 F 12/05/24 14:07 Pulse 76 12/05/24 14:07 Resp 20 12/05/24 14:07 BP 146/97 H 12/05/24 14:07 Pulse Ox 95 12/05/24 14:07 O2 Del Method Room Air 12/05/24 14:07 Course Reevaluation(s) Reevaluation #1: splint applied, patient in sling, he is doing well. Discussed with patient and results, plan, and disposition. They are agreeable. Time: 15:59 Consultations Consultation #1: Patient discussed with radiologist, Dr. Fuentes. He did not have a excess to prior films and initially thought the bone fragment noted on lateral view was chronic. However, on review of the old films, he is agreeable that this is acute in nature and concerning for avulsion fracture, triceps avulsion Time: 15:27 Consultation #2: Patient discussed with Dr. Jasmine who reviewed the films and recommends posterior splint, sling and close follow-up. Time: 15:28 Vital Signs Vital signs: Vital Signs Temperature 98 F 12/05/24 14:07 Pulse Rate 76 12/05/24 14:07 Respiratory Rate 20 12/05/24 14:07 Blood Pressure 146/97 H 12/05/24 14:07 Pulse Oximetry 95 12/05/24 14:07 Oxygen Delivery Method Room Air 12/05/24 14:07 Temperature 98 F 12/05/24 14:07 Pulse Rate 76 12/05/24 14:07 Respiratory Rate 20 12/05/24 14:07 Blood Pressure 146/97 H 12/05/24 14:07 Pulse Oximetry 95 12/05/24 14:07 Oxygen Delivery Method Room Air 12/05/24 14:07 MDM - Extremity Injury (Upper) MDM Narrative Medical decision making narrative: This is a pleasant 74-year-old male who presents to the emergency department for evaluation of right elbow injury. Second injury over the past couple weeks. Did have some x-rays performed yesterday. Was walking with his walker when one of the legs became caught on a chair, causing him to lose balance and fall directly on the elbow. On arrival, afebrile, vital signs stable. On exam, nontoxic, well appearing patient, in no apparent distress. He complains of tenderness over the olecranon. Denies any condyle or radial head tenderness. Denies any other tenderness throughout the extremity. Range of motion is full flexion, extension, supination, pronation. Strength 5/5. Sensory intact. Pulses intact. Right elbow x-ray imaging reveals fracture of the olecranon, worse compared to film performed yesterday. Favor right elbow fracture Dislocation less likely based on imaging History and Record Review Discussion with independent historian: Additional records reviewed: X-rays from yesterday showing fragment closer to the ulna. Management Independent interpretation: Right elbow x-ray: Fracture, displacement of the superior aspect of the olecranon Re-Evaluation: See ED Course Disposition ? The patient was discharged. Prescriptions sent to pharmacy: [facility] Patient placed in splint Patient advised rest, ice, elevation, compression Patient advised Ibuprofen/Tylenol as needed for pain Patient placed in sling Plan: Patient will be discharged to home. Condition at time of disposition: stable, improved. ? Advised to follow up with referral provider, name and number placed on discharge paperwork. Advised to return for any worsening and/or development of new, concerning signs or symptoms PLEASE NOTE: Portions of the medical record may have been produced using electro hai lmft and may contain errors with respect to translation of words which may not have been identified prior to finalization of the chart. Medical Records Attestation: I reviewed the patient's medical records. Imaging Data Right elbow x-ray: Attestation: I have reviewed the pertinent imaging results. Radiologist's impression: Soft tissue calcifications noted posterior to the olecranon suspicious for avu lsion fracture. Triceps avulsion fracture suspected. Discharge Plan Discharge Chief Complaint: Extremity Injury, Upper Clinical Impression: Pain in joint of right elbow Closed fracture of right olecranon process Qualifiers: Encounter type: initial encounter Qualified Code(s): S52.021A - Displaced fracture of olecranon process without intraarticular extension of right ulna, initial encounter for closed fracture Patient Disposition: Home, Self-Care Time of Disposition Decision: 15:58 Condition: Good Mode of Transportation: Private Vehicle Prescriptions / Home Meds: New hydrocodone-acetaminophen 5-325 mg tablet 1 tab PO Q8H PRN (Reason: pain) 3 Days Qty: 8 0RF No Action metoprolol tartrate [Lopressor] 50 mg tablet 50 mg PO BID bupropion HCl 150 mg tablet sustained-release 12 hr 150 mg PO DAILY venlafaxine 37.5 mg capsule,extended release 24hr 37.5 mg PO BID acarbose 50 mg tablet 50 mg PO TID Januvia 50 mg tablet 50 mg PO DAILY sodium bicarbonate 650 mg tablet 650 mg PO TID PRN (Reason: stomach upset) aspirin [Adult Aspirin Regimen] 81 mg tablet,delayed release (DR/EC) 81 mg PO DAILY losartan 50 mg tablet 75 mg PO DAILY simvastatin 40 mg tablet 40 mg PO DAILY tizanidine 4 mg tablet 4 mg PO DAILY PRN (Reason: muscle spasticity) pioglitazone 30 mg tablet 60 mg PO DAILY nitroglycerin 0.4 mg tablet, sublingual 0.4 mg sublingual Q5M Rx Instructions: do not exceed 3 doses per episode acetaminophen-codeine 300-30 mg tablet 1 tab PO Q6H PRN (Reason: pain) 5 Days Qty: 20 0RF pregabalin [Lyrica] 100 mg capsule 100 mg PO QID Qty: 120 0RF tizanidine 4 mg capsule See Rx Instructions .ROUTE .COMPLEX PRN (Reason: muscle spasticity) Qty: 180 2RF Rx Instructions: 1-2 tabs PO TID PRN pregabalin 75 mg capsule QID pregabalin [Lyrica] 100 mg capsule See Rx Instructions .ROUTE .COMPLEX Qty: 35 0RF Rx Instructions: 100mg BID FOR 14 DAYS 100mg EVERYDAY FOR 7 DAYS THEN DISCONTINUE tizanidine 4 mg tablet 4 mg PO QID PRN (Reason: muscle spasticity) Qty: 120 0RF buprenorphine [Butrans] 5 mcg/hour patch weekly 1 patch transdermal Q7D Qty: 4 0RF cephalexin 500 mg capsule 500 mg PO BID 7 Days Qty: 14 0RF Print Language: [place] Instructions: Elbow Fracture (ED) Referrals: Bishop Jasmine MD [Physician] - 12/06/24 Discharge Date/Time: 12/05/24 16:15 Procedures ED Ortho Splinting/Casting Orthopedic Splinting/Casting right elbow: Additional comments: ED PROCEDURE NOTE: SPLINTING/STRAPPING Applied a long arm, posterior splint/immobilizer to the right arm of the patient. The area was examined post application and there was good alignment and good neurovascular function of the splinted/immobilized body part following the procedure. The patient tolerated the procedure well. Electronically verified by González Hunt PA-C
== END 2024-12-05 16:15 | disposition home or self-care (01) ==
PROVIDERS: Emergency Provider Emergency Medicine; PCP Family Medicine
DX: S52.021A Displaced fracture of olecranon process without intraarticular extension of right ulna, initial encounter for closed fracture (principal); W18.39XA Other fall on same level, initial encounter; Z95.5 Presence of coronary angioplasty implant and graft; Z91.81 History of falling; M25.521 Pain in right elbow
CPT/HCPCS: 29105; 73060; 73080; 99283

== ENCOUNTER 2024-12-31 09:26 | Outpatient (OUT) | payer MEDICARE, OTHER, SELFPAY ==
--- OUTSIDE RECORDS SUMMARY | 2024-12-31 09:36 | XMS_ITS | CCD ---
Author Organization [facility] Care Team Providers Care Tearoom Host/Hostess Name Role Phone Claudioaminta Morgan Unavailable Aldo [...] Unavailable LATRICIA, DR ARACELI Treadwell Admitting Unavailable SU, DR MORGAN Miranda Consulting Unavailable ANDREW, DR BRITTNY Hemphill Consulting Unavailable JOHNSON ., DR SCARLET [place] Primary Care Unavailable ROLANDO SORIA Attending Unavailable ROLANDO SORIA Admitting Unavailable ROLANDO SORIA Consulting Unavailable JOHNSON ., DR SCARLET [place] Consulting Unavailable JOHNSON ., DR SCARLET [place] Primary Care Unavailable JOHNSON ., DR SCARLET [place] Attending Unavailable JOHNSON ., DR SCARLET [place] Admitting Unavailable JOHNSON ., DR SCARLET [place] [...] SCARLET [place] Admitting Unavailable Eligio Soni Unavailable [phone] MD Daniel Everett Attending Provider MD Scarlet Johnson Primary Care Provider [phone] MD Eligio Soni Attending Provider MD Scarlet Johnson Primary Care Provider MD Daniel Everett Attending Provider [phone] Eligio Soni Admitting UnavailEligio Patel Attending UnavailScarlet [...] COOK, Araceli P Attending Unavailable Araceli BERMUDEZ P Attending Unavailable Araceli BERMUDEZ P Attending Unavailable Araceli BERMUDEZ P Attending Unavailable Haider Hickman Attending Unavailable Haider Hickman Attending Unavailable Haider Hickman MD Primary Care Provider MORGAN TRINIDAD Attending Unavailable HAIDER HICKMAN Primary Care Unavailable MIJATOVIC, DESIMIR Referring Unavailable HAIDER HICKMAN Primary Care Unavailable MEKHAILHEBRERTH A Referring Unavailable MIJATOVIC, DESIMIR Attending Unavailable MEKHERBERTH MEYERS Attending Unavailable FRANCOISE SINGLETARY Attending Unavailable HAIDER HICKMAN Primary Care Unavailable MIJATOVIC, DESIMIR Referring Unavailable MIJATOPHILIPP, DESIMIR Attending Unavailable MEKHERBERTH MEYERS Attending Unavailable HERBERTH ARAUJO Admitting Unavailable MORGAN TRINIDAD Referring Unavailable HAIDER HICKMAN Primary Care Unavailable BRITNEY HYDE Attending Unavailable Haider Hickman Attending Unavailable DAVID ACOSTA Attending Unavailable Haider Hickman Attending Unavailable Haider Hickman Attending Unavailable Haider Hickman Attending Unavailable Haider Hickman Attending Unavailable Haider Hickman Attending Unavailable Haider Hickman Referring Unavailable Haider Hickman Attending Unavailable Haider Hickman Admitting Unavailable Dolce, Kajal R Attending Unavailable DolceGuzmanKajal R Attending Unavailable DolceGuzmanKajal R Attending Unavailable REFERRAL, SELF Referring Unavailable Araceli BERMUDEZ Attending Unavailable BASSAM AGUILAR Attending Unavailable APLING, CHELLE Blank Attending Unavailable APLING, CHELLE Blank Referring Unavailable MACY MCPHERSON Attending Unavailable BROWNBASSAM A Attending Unavailable BROWNBASSAM A Attending Unavailable APLING, CHELLE Blank Attending Unavailable APLING, CHELLE Blank Attending Unavailable BROWNBASSAM Attending Unavailable DOLCE, SHYAM Stoner Attending Unavailable DOLCESHYAM Referring Unavailable DOLCE, KAJAL R Attending Unavailable APLING, CHELLE Blank Attending Unavailable DOLCE, SHYAM Stoner Attending Unavailable DANIELARLEN Attending Unavailable DOLCE, SHYAM Stoner Attending Unavailable DOLCE, SHYAM Stoner Attending Unavailable KHAI HEARD Attending Unavailable ARLEN SANCHEZ Referring Unavailable BASSAM AGUILAR Attending Unavailable MATTHEW MAY Attending Unavailable HAIDER HICKMAN Referring Unavailable BASSAM AGUILAR Attending Unavailable Haider Hickman Attending Unavailable Haider Hickman Admitting Unavailable Haider Hickman Attending Unavailable Haider Hickman Attending Unavailable Giedraitis , Miguelangel Louis Attending Unavailable Giedraitis , Miguelangel Louis Attending Unavailable Giedraitis , Miguelangel Louis Attending Unavailable MARY APARICIO Attending Unavailable ELAINE FISHER Attending Unavailable ESSENCE WASHBURN Attending Unavailable ESSENCE WASHBURN Attending Unavailable HAIDER HICKMAN Primary Care Unavailable BRITTNY JASMINE Referring Unava ilable BRITTNY JASMINE Attending Unava ilable Sarmini, Krishna Talal Attending Unavaila ble Sarmini, Krishna Talal Admitting Unavaila ble Haider Hickman Attending Unavailable Haider Hickman Admitting Unavailable Sarminzabrina, Krishna Taladonis Attending Unavaila ble SarHaja colvinhammad Bharathial Attending Unavaila ble Haider Hickman Attending Unavailable Haider Hickman Attending Unavailable Haider Hickman Attending Unavailable Nanette Barajas Attending Unavailable Sarmini, Krishna Talal Admitting Unavaila ble Sarmini, Krishna Talal Attending Unavaila ble Sarmini, Krishna Talal Referring Unavaila ble Allergies Allergy Classification Reported Allergen(s) Allergy Type Date of Onset Reaction(s) Facility (20 sources) Cefuroxime; Translations: [cefuroxime] Drug Allergy 06-09-20 Unknown [facility] (20 sources) celecoxib; Translations: [CELECOXIB] Drug Allergy 06-09-20 Unknown [facility] (20 sources) Diflunisal; Translations: [DIFLUNISAL] Drug Allergy 06-09-20 Unknown [facility] (20 sources) dulaglutide Drug Allergy 09-11-20 Unknown, g/i [facility] (20 sources) Ibuprofen Drug Allergy Unknown [facility] Other (20 sources) liraglutide; Translations: [LIRAGLUTIDE] Drug Allergy 11-25-19 stomach upset [facility] (20 sources) metFORMIN; Translations: [metFORMIN] Drug Allergy 06-09-20 stomach upset [facility] (20 sources) Naproxen; Translations: [NAPROXEN] Drug Allergy 06-09-20 21 Unknown [facility] (20 sources) Sulindac; Translations: [Clinoril] Drug Allergy 07-10-20 15 Unknown [facility] (1 source) Cefuroxime Drug Allergy 07-13-20 16 [facility] (5 sources) celecoxib; Translations: [CeleBREX] Drug Allergy 07-10-20 15 [facility] (5 sources) liraglutide; Translations: [Victoza] Drug Allergy [facility] (1 source) metFORMIN Drug Allergy 06-15-20 17 [facility] (5 sources) Naproxen; Translations: [Naprosyn] Drug Allergy 07-10-20 15 [facility] (3 sources) NSAIDs; Translations: [NSAIDS (NON-STEROIDAL ANTI-INFLAMMATORY DRUG)] Drug allergy (disorder) 07-10-20 15 [facility] (5 sources) Povidone-Iodine; Translations: [Dolobid] Drug Allergy 07-10-20 15 [facility] (20 sources) Cephalosporins (Antibiotic); Translations: [Cephalosporins] Propensity to adverse reactions 05-29-20 18 Unknown Reaction [facility] (20 sources) Ibuprofen; Translations: [ibuprofen] Drug Allergy 09-11-20 Unknown [facility] (20 sources) Sulindac; Translations: [sulindac] Drug Allergy 06-09-20 21 Unknown [facility] (1 source) Cefuroxime Drug Allergy 09-11-20 [facility] (1 source) celecoxib Drug Allergy 09-11-20 [facility] (1 source) Diflunisal Drug Allergy 09-11-20 [facility] (1 source) dulaglutide Drug Allergy 09-11-20 [facility] (1 source) liraglutide Drug Allergy 09-11-20 [facility] (1 source) metFORMIN Drug Allergy 09-11-20 [facility] (1 source) Naproxen Drug Allergy 09-11-20 [facility] (12 sources) Non-steroidal anti-inflammatory agent Drug Intolerance 02-05-20 GI Upset [facility] (4 sources) Cefuroxime; Translations: [Cefuroxime Axetil] Drug Allergy [facility] (4 sources) dulaglutide; Translations: [Trulicity] Drug Allergy [facility] (4 sources) Niacin; Translations: [niacin] Drug Allergy [facility] (20 sources) NSAIDs; Translations: [NSAIDs] Propensity to adverse reactions (disorder) 07-23-20 Other [facility] (4 sources) rofecoxib; Translations: [Vioxx] Drug Allergy [facility] (20 sources) celecoxib Drug Allergy 05-18-20 Unknown [facility] (20 sources) Diflunisal Drug Allergy 06-09-20 Unknown [facility] (20 sources) dulaglutide Drug Allergy 05-18-20 Unknown [facility] (20 sources) liraglutide Drug Allergy 05-18-20 Unknown [facility] (20 sources) metFORMIN Drug Allergy 05-18-20 Unknown [facility] (20 sources) rofecoxib; Translations: [ROFECOXIB] Drug Allergy 06-09-20 Unknown [facility] Medications Current Medications Medication Drug [...] injector (1 source) Insulin Analog Start: 05-31-20 23 HumaLOG KwikPen 100 UNIT/ML 1:50 corrective scale [...] Start: 03-12-2023 take 2 tablets by mo [facility] at bedtime losartan (Cozaar) 50 MG [...] Orally Once a day Active [facility] Active memantine hydrochloride 10 mg oral tablet (20 sources) W-wgjfih-H-aspartate Receptor Antagonist Start: 05-31-2024 End: 07-22-2024 take [...] DOSES NEEDED FOR CHEST PAIN 09/20/2023 Active [place] 5-Tvi-Rzb-Fish Oil (Fish Oil) 1,000 mg (120 mg-180 mg) Capsule (2 sources) Start: 018 [place] 3-Mfu-Vfo-Fish Oil (Fish Oil) 1,000 mg (120 mg-180 [...] 05/09/2023 Active take 2 tablets by mo [facility] every twenty-four hours Pioglitazone HCl [...] Orally once a day Active FreeStyle [facility] - (7 sources) FreeStyle [facility] - use with baylee sensor SQ daily [...] Coronary arteriosclerosis; Translations: [Atherosclerotic heart disease of [place] coronary artery without angina pectoris] Onset: 9 [...] shoulder] 07-23-2024 Chronic Other aftercare (1 source) prison (current) use of aspirin; Translations: [[employer] CURRENT USE OF ASPIRIN] Onset: 3 Episodic Other aftercare (1 source) Other 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 manager (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) drug therapy; Translations: [OTH CARE HOME CURRENT DRUG THERAPY] Onset: 3 Episodic Other aftercare (6 sources) Long-term current use of insulin; Translations: [joint terminal attack controller (current) use of insulin] Episodic Other aftercare (3 sources) prison (current) use of insulin; Translations: [prison (current) use of insulin] Onset: 3 Episodic Other and ill-defined heart disease (2 sources) Cardiomegaly; Translations: [Cardiomegaly] Onset: 4 Chronic Other connective tissue disease (3 sources) Pain [...] elsewhere classified] Chronic Other lower respiratory disease (3 sources) Other [...] joint disorders, left shoulder] 06-12-2024 Episodic Other non-traumatic joint disorders (2 sources) Pain in right elbow; Translations: [Pain in right elbow] Onset: 5 Episodic Other nutritional; endocrine; and metabolic disorders [...] in adult, unspecified obesity type (HCC)] Onset: 3 Chronic Other nutritional; endocrine; and [...] extremity] Onset: 3 Episodic Residual codes; unclassified (2 sources) Sleep apnea, unspecified; Translations: [Sleep apnea, unspecified] Onset: 3 Chronic Residual codes; unclassified (1 source) Edema, unspecified; [...] adult, unspecified obesity type (HCC)] Onset: 4 Unclassified (1 source) Obesity, class 3; Translations: [Obesity, class 3] Onset: 3 Past or Other Problems Problem Classification Problem [...] KIDNEY DISEASE STG 3 UNSP] Onset: 11-08-2022 Unclassified (1 source) Obesity, class 3; Translations: [Obesity, class 3] Onset: 12-18-2024 Results Test Name Value Interpretation Reference Range Facility MR ELBOW RIGHT WITHOUT CONTR Ceferino 12-19-2024 MR ELBOW RIGHT WITHOUT CONTRAST EXAMINATION: MR ELBOW RIGHT WITHOUT CONTRAST HISTORY: ORDERING SYSTEM PROVIDED HISTORY: Right elbow pain, TECHNOLOGIST PROVIDED HISTORY: Illness/Other Reason for exam: Right elbow pain Encounter Type: Initial Additional signs and symptoms: n ORDERING SYSTEM PROVIDED DIAGNOSIS CODES: M25.521 Right elbow pain COMPARISON: None. TECHNIQUE: Coronal T1, STIR and T2* gradient, axial PD, T2 and sagittal STIR sequences without IV contrast were performed. FINDINGS: There is an acute full-thickness rupture of the triceps tendon which is retracted nearly 2 cm from the olecranon. See sagittal STIR image 12. Motion degrades quality. Surrounding subcutaneous swelling. Edema in the surrounding triceps muscle. Tendinopathy with moderate partial-thickness tear of the common extensor tendon noted. Common flexor tendon is intact. The ulnar collateral ligament is intact. Prior sprain of the radial collateral ligament noted. Biceps tendon is intact. IMPRESSION: Acute full-thickness rupture of the triceps tendon retracted nearly 2 cm from the olecranon. PD/trw Workstation ID: [id number] Dictated by: AMELIE ALBRIGHT on MonDec 20, 2024 8:22:19 AM EDT Transcribed by: KNEDRICK SANDOVAL on MonDec 20, 2024 9:01:42 AM EDT Finalized by: AMELIE ALBRIGHT on MonDec 20, 2024 9:22:13 AM EDT Normal [facility] Comment on above: Order Comment: PT/FA X Injury/Trauma or Illness?:Illness/Other How long have you had these symptoms (acute/chronic)?:Chronic Reason for exam?:Right elbow pain Type of Exam?:Initial Additional signs and symptoms?:n Office Visiton 12-18-2024 Follow-up visit [id number] Dong Whitmore 1950 M Date Provider Department Center 12/18/2024 [id number] WASHBURN [facility] Family History Problem Relation Age of Onset Coronary artery disease Other Diabetes Other Family Status - Relation Status Age at Other Level of Service:18819 DC OFFICE/OUTPATIENT ESTABLISHED MOD MDM 30 MIN Reason for Visit and Comments: Coronary Artery Disease [187] Hyperlipidemia [182] - Had routine labs with lipid panel in Oct 2024. Hypertension [620697] Pre-op Exam [[id number]] - Needs surgery clearance with Dr. Jasmine. Shortness of Breath [[id number]] - SOB worsening over the couple of months Normal [facility] Lab Miscellaneous-LCon 12-06 Lab Miscellaneous COMMENT Invalid Interpretation Code [facility] Comment on above: Result Comment: Test Ordered: [id number] Enhanced Liver Fibrosis (ELF) ELF(TM) Score 11.00 [H ] BN Reference Range: <9.80 ELF(TM) Score Interpretation: Risk cut-offs to assess the likelihood of progression to cirrhosis and liver-related clinical events within 3.9 years following baseline ELF score (IQR: 14.0-22.4 months)*: Lower risk < 9.80 Mid risk 9.80 - 11.29 Higher risk >11.29 Note: The ELF(TM) Score is a unitless numerical value. *Rohit SA, Josafat VW, Ana T, et al. Selonsertib for patients with bridging fibrosis or compensated cirrhosis due to SANTANA: Results from randomized phase III STELLAR trials. J Hepatol. 2020 Apr;73(1):26-39. Performed at: [facility] [address] [id number] PhD Faye Ring Performed By: #### 1 [id number] #### [facility] [address] [place] [address] Ambulatory Visit Summaryon 0 12-04-2024 Ambulatory Visit Summary Ambulatory Visit Summary DONG WHITMORE :1950 Visit Date:12/04/2024 Ambulatory Visit Instructions Your Diagnosis Injury of right elbow Right elbow pain BMI 40.0-44.9, adult Non-smoker Your Care Team Attending Physician - Nanette Do Primary Care Physician - Haider Hcikman MD This Is Your Medications List [place] Prescription (Eric Prather, 5 years.) acarbose (acarbose 25 mg oral tablet) aspirin (aspirin 81 mg Oral EC Tab) buPROPion (buPROPion 300 mg/24 hours ER Tab) calcium carbonate (calcium (as carbonate) 600 mg oral tablet) carvedilol (carvedilol 6.25 mg Tab) insulin aspart (NovoLog) losartan (losartan 50 mg Tab) methylPREDNISolone (Medrol 4 mg Tab) nitroglycerin (nitroglycerin 0.4 mg sublingual Tab) nitroglycerin (nitroglycerin 0.4 mg sublingual Tab) omega-3 polyunsaturated fatty acids (Fish Oil 1200 mg oral capsule) pioglitazone (pioglitazone 30 mg Tab) potassium chloride (Potassium Chloride (Qek-Tgff-Dqr M20) 20 mEq oral tablet, extended release) [...] (Peripheral) 78 Respiratory Rate 18 Blood Pressure 126/74 Height 168.0 cm Height 66 in Weight 122.9 kg Weight 270.948 lb BMI 43.54 What to do next Scheduled Follow-Up Appointments Monday 9:00 AM EST With: Where: [facility] Monday 9:45 AM EDT With: Candace SCHUSTER, Tomi Sheffield Where: [facility] [address] [place] [address] [place] [address]- Monday 10:00 AM EDT With: Haider Hickman MD Where: [address] [address]- 2024 8:00 AM EDT With: Where: [address] [address]- Monday 9:15 AM EDT With: LATRICIA SCHUSTER, Araceli Treadwell Where: [facility] [address] [place] [address]- Medications What How Much When Why Instructions New methylPREDNISolone (Medrol 4 mg Tab) 1 Packets By Mouth As Directed Injury of right elbow Right elbow pain BMI 40.0-44.9, adult Non-smoker Duration: 6 Days as directed on package labeling Pickup at [facility]/pharmacy #[id number] Unchanged acarbose (acarbose 25 mg oral tablet) [...] as needed for for chest pain Unchanged nitroglycerin (nitroglycerin 0.4 mg sublingual Tab) Unchanged omega-3 polyunsaturate (more content not included)... Normal [facility] Medicine Office/Clini c Noteon 12-04-2024 Family Medicine Office/Clinic Note Family Medicine Office/Clinic Note HPI Staff Dong is a 74 year old male presenting for pain Pain characteristics: Pain location: right elbow Intensity: 2/10 then with use 10/10 Onset: 2 weeks Medication used: Bengay, horse lineament Hurts worse with use pushing/pulling or straightening his arm. Pt walks with cane on his right side. Pt did have a fall 3.5 weeks ago on his right side and hit his elbow but he states his arm never hurt when he fell. History of Present Illness pt presents today with right elbow pain. he had a fall 3.5 weeks ago and had a large laceration to right arm. elbow just started hurting 2 weeks ago Review of Systems PHQ Score Initial Depression Screen Score: 0 SCORE Physical Exam Vitals & Measurements HR: 78(Peripheral) RR: 18 BP: 126/74 SpO2: 97% HT: 66 in HT: 168.0 cm WT: 122.9 kg WT: 270.948 lb BMI: 43.54 General: alert, no acute distress ENMT: oral mucosa moist, no pharyngeal erythema or exudate Cardiovascular: regular rate and rhythm, normal peripheral perfusion Respiratory: Lungs CTA, respirations non labored Extremities: no deformity, no trauma Neurological: oriented x 4, LOC appropriate for age, CN II-XII intact, motor strength equal & normal bilaterally, speech normal Assessment/Plan 1. Injury of right elbow (S59.901A: Unspecified injury of right elbow, initial encounter) limited ROM of elbow due to pain. will order x ray. pt prefers to go to [facility]. will call him with results. medrol dose pack sent in. pt declines meloxicam or any other pain medication. encouraged him to use heat. he states ice is not helping at all. follow up with Dr. Hickman 2 weeks Ordered: methylPREDNISolone, = 1 packet(s), Oral, As Directed, as directed on package labeling, X 6 day(s), # 21 tab(s), Refills(s) 0, Pharmacy: [facility]/pharmacy #[id number], 168, cm, 12/04/24 13:51:00 EST, Height/Length Dosing, 122.9, kg, 12/04/24 13:51:00 EST, Weight Dosing 2. Right elbow pain (M25.521: Pain in right elbow) medrol dose pack Ordered: methylPREDNISolone, = 1 packet(s), Oral, As Directed, as directed on package labeling, X 6 day(s), # 21 tab(s), Refills(s) 0, [id number], 168, cm, 12/04/24 13:51:00 EST, Height/Length Dosing, 122.9, kg, 12/04/24 13:51:00 EST, Weight Dosing 3. BMI 40.0-44.9, adult (Z68.41: Body mass index [BMI] 40.0-44.9, adult) BMI education given Ordered: methylPREDNISolone, = 1 packet(s), Oral, As Directed, as directed on package labeling, X 6 day(s), # 21 tab(s), Refills(s) 0, [id number], 168, cm, 12/04/24 13:51:00 EST, Height/Length Dosing, 122.9, kg, 12/04/24 13:51:00 EST, Weight Dosing 4. Non-smoker (Z78.9: Other specified health status) continue not smoking Ordered: methylPREDNISolone, = 1 packet(s), Oral, As Directed, as directed on package labeling, X 6 day(s), # 21 tab(s), Refills(s) 0, [id number], 168, cm, 12/04/24 13:51:00 EST, Height/Length Dosing, 122.9, kg, 12/04/24 13:51:00 EST, Weight Dosing Follow-up No qualifying data available Problem List/Past Medical History Ongoing Acquired absence of right great toe 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 Acquired absence of third toe of right foot Allergic rhinitis Anticoagulated Balance problem Benign hypertension with chronic kidney disease, stage III Bilateral leg pain BMI 40.0-44.9, adult BMI 45.0-49.9, adult BPH with obstruction/lower urinary tract symptoms Calculus of gallbladder without cholecystitis without obstruction Chronic painful diabetic neuropathy Complex renal cyst Coronary arteriosclerosis in [place] artery Dizziness Dizziness and giddiness Erythema of skin Fatty liver GERD (gastroesophageal reflux disease) Hiatal hernia History of kidney stones Impotence Injury of right elbow Laceration of arm Long-term insulin use Lumbar spondylosis Lumbar stenosis Major depressive disorder, 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 Mixed hyperlipidemia SANTANA (nonalcoholic steatohepatitis) Nonsmoker OA (osteoarthritis) Obesity, morbid, BMI 40.0-49.9 ULISES (obstructive sleep apnea) Pain, foot, right, chronic Peripheral edema Psoriasis Renal mass Right elbow pain Shoulder pain Stage 3a chronic kidney disease Stasis ulcer Type 2 diabetes mellitus with hyperlipidemia Type 2 diabetes mellitus with peripheral vascular disease Type 2 diabetes mellitus with stage 3a chronic kidney disease and hypertension Urgency of urination Vitamin D deficiency Weakness Historical Amputation of toe of right foot Anxiety disorder BPH - benign prostatic hyperplasia Depressed mood Hyperlipidemia Neuropathy Procedure/Surgical History Percutaneous implantation of neurostimulator electrode array, epidural (04/03/2024), TOE AMPUTATION (11/16/2018), ESWL - Extracorporeal shockwave lithotripsy for renal calculus (06/07/2018), Cystoscopic removal of ureteric stent (01/10/2017), Cystoscopy and retrograde pyelography (12/05/2016), y (more content not included)... Normal [facility] Comment on above: Result Comment: Elec tronically Signed By: Nanette Do\.br\Date and Time Signed: 12/04/24 14:24 EST Lab Miscellaneous-LCon 12-04 Test Code [id number] Invalid Interpretation Code [facility] Comment on above: Performed By: #### 1 [id number] #### [facility] [address] [place] [address] Test Name ELF Invalid Interpretation Code [facility] Comment on above: Performed By: #### 1 [id number] #### [facility] [address] [place] [address] Nursing Narrative Noteon Nursing Narrative Note Nursing Narrative Note Unable to obtain accurate fibroscan d/t body habitus. Normal [facility] Ambulatory Visit Summaryon 0 11-27-2024 Ambulatory Visit Summary Ambulatory Visit Summary DONG WHITMORE :1950 Visit Date:11/27/2024 Ambulatory Visit Instructions Your Diagnosis Fatty liver Calculus of gallbladder without cholecystitis without obstruction GERD (gastroesophageal reflux disease) Your Care Team Attending Physician - Candace SCHUSTER, Tomi Sheffield Primary Care Physician - Haider Hickman MD This Is Your Medications List Contact prescribing physician if questions or concerns Misc Prescription (Eric Prather, 5 years.) acarbose (acarbose 25 mg oral tablet) aspirin (aspirin 81 mg Oral EC Tab) buPROPion (buPROPion 300 mg/24 hours ER Tab) calcium carbonate (calcium (as carbonate) 600 mg oral tablet) carvedilol (carvedilol 6.25 mg Tab) cephalexin (cephalexin 500 mg Cap) insulin aspart (NovoLog) losartan (losartan 50 mg Tab) nitroglycerin (nitroglycerin 0.4 mg sublingual Tab) nitroglycerin (nitroglycerin 0.4 mg sublingual Tab) omega-3 polyunsaturated fatty acids (Fish Oil 1200 mg oral capsule) pioglitazone (pioglitazone 30 mg Tab) potassium chloride (Potassium Chloride (Mnk-Woia-Mut M20) 20 mEq oral tablet, extended release) [...] conduit, Stimulator. Discharge Vitals Heart Rate (Peripheral) 73 Blood Pressure 129/74 Height 168 cm Height 66 in Weight 126.8 kg Weight 279.546 lb BMI 44.93 What to do next Scheduled Follow-Up Appointments Monday 9:00 AM EST With: Where: [facility] Monday 10:00 AM EDT With: Kristofer SCHUSTER, Haider Bee Where: [address] [address] 2024 8:00 AM EDT With: Where: [address] [address]- Monday 9:15 AM EDT With: LATRICIA SCHUSTER, Araceli Treadwell Where: [facility] [address], [address] [place] [address]- You Need to Complete the Following Lab Miscellaneous-LC, Not Specified, Routine collect, ELF, 11/27/24, Order for future visit, Lab Collect, Fatty liver, Print Label By Order Location, [id number] Medications What How Much When Why Instructions [...] prescribing physician if questions or concerns Unchanged carvedilol (carvedilol 6.25 mg Tab) TAKE 1 TABLET BY MOUTH WITH BREAKFAST AND EVENING MEAL *START AFTER YOU RUN OUT OF METOPROLOL* Contact prescribing physician if questions or concerns Unchanged cephalexin (cephalexin 500 mg Cap) Contact prescribing physician if questions or concerns [...] obesity due to excess calories with body ma (more content not included)... Normal [facility] Gastroenterology Office/Clin ic Noteon 11-27-2024 Gastroenterology Office/Clinic Note Gastroenterology Office/Clinic Note Chief Complaint Fatty Liver HPI Staff New patient is a(n) 74 year old male who was referred by Dr Hickman for fatty liver and asymptomatic calculus of gallbladder without cholecystitis. Denies Fhx colon cancer/colon diseases. Previous EGD/Colonoscopy or Cologuard? Yes- several colonoscopies Denies hx colon cancer/polyps. Denies n/v/c/d, abd pain, bloody or mucus stools. Previous pain in epigastric area but subsided 10/2024. Blood thinners? aspirin 81mg daily GLP-1 agonists? no XR abd 01/04/24: IMPRESSION: THERE ARE NO ACUTE CHANGES US RUQ 10/22/24 @ [place]: IMPRESSION: 1. Cholelithiasis. 2. Mild fatty infiltration of liver. 3. No acute or specific findings to account for patient's symptoms. Laboratory Results CBC CMP PT PTT Basophil Absolute: 0 E9/L (12/29/23) A/G Ratio: 1.7 (09/09/24) INR: 1.23 (12/29/23) PTT: 35.7 second(s) (12/29/23) Basophil Auto: 0.5 % (12/29/23) AGAP: 12 mEq/L (09/09/24) PT: 13.8 second(s) High (12/29/23) Eos Absolute: 0.3 E9/L (12/29/23) Albumin Lvl: 4.3 gm/dL (09/09/24) Eos Auto: 5.7 % (12/29/23) Alk Phos: 73 Int._Unit/L (09/09/24) Hct: 38.3 % (12/29/23) ALT: 23 Int._Unit/L (09/09/24) HGB: 12.8 gm/dL Low (12/29/23) AST: 25 Int._Unit/L (09/09/24) Lymph Absolute: 0.9 E9/L Low (12/29/23) Bili Total: 0.5 mg/dL (09/09/24) Lymph Auto: 17.1 % (12/29/23) BUN: 28 mg/dL High (09/09/24) MCH: 28.1 pg (12/29/23) BUN/Creat Ratio: 22 High (09/09/24) MCHC: 33.4 gm/dL (12/29/23) Calcium Lvl: 9.2 mg/dL (09/09/24) MCV: 84.1 fL (12/29/23) Chloride: 108 mmol/L (09/09/24) Dixon Absolute: 0.4 E9/L (12/29/23) CO2: 26 mmol/L (09/09/24) Dixon Auto: 7.1 % (12/29/23) Creatinine: 1.3 mg/dL (09/09/24) MPV: 8.4 fL (12/29/23) Globulin: 2.5 gm/dL (09/09/24) Neutro Absolute: 3.9 E9/L (12/29/23) Glucose Lvl: 137 mg/dL (09/09/24) Neutro Auto: 69.6 % (12/29/23) Potassium Lvl: 4.7 mmol/L (09/09/24) Platelet: 178 E9/L (12/29/23) Sodium Lvl: 141 mmol/L (09/09/24) RBC: 4.6 E12/L (12/29/23) Total Protein: 6.8 gm/dL (09/09/24) RDW: 14.6 % High (12/29/23) WBC: 5.5 E9/L (12/29/23) History of Present Illness Reviewed HPI collected by staff Review of Systems PHQ Score Initial Depression Screen Score: 0 SCORE All systems reviewed, negative; Except for above Physical Exam Vitals & Measurements HR: 73(Peripheral) BP: 129/74 HT: 66 in HT: 168 cm WT: 126.8 kg WT: 279.546 lb BMI: 44.93 General: in Nad Abdomen: Soft, NTND Assessment/Plan 1. Fatty liver (K76.0: Fatty (change of) liver, not elsewhere classified) Seen on US 11/02 Denies alcohol use Denies Fhx of liver disease Has diabetes Plan - emphasized the importance of weight loss and recommended the Mediterranean diet as well as green Mediterranean diet - Avoid alcohol - advised 10% weight loss - regular exercise - Schedule Fibroscan to evaluate Discussed Rezdiffra depending on Fibroscan results 2. Calculus of gallbladder without cholecystitis without obstruction (K80.20: Calculus of gallbladder without cholecystitis without obstruction) Seen on US 11/02 3. GERD (gastroesophageal reflux disease) (K21.9: Gastro-esophageal reflux disease without esophagitis) I, Helena Gomez, personally scribed for Tomi Maria on 11/27/2024 10:16:29. . Documentation recorded by India Gomez, accurately reflects the services I performed and decisions made by me. Tomi Maria MD Follow-up No qualifying data available Problem List/Past Medical History Ongoing Acquired absence of right great toe 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 Acquired absence of third toe of right foot Allergic rhinitis Anticoagulated Balance problem Benign hypertension with chronic kidney disease, stage III Bilateral leg pain BMI 40.0-44.9, adult BMI 45.0-49.9, adult BPH with obstruction/lower urinary tract symptoms Calculus of gallbladder without cholecystitis without obstruction Chronic painful diabetic neuropathy Complex renal cyst Coronary arteriosclerosis in [place] artery Dizziness Dizziness and giddiness Erythema of skin Fatty liver GERD (gastroesophageal reflux disease) Hiatal hernia History of kidney stones Impotence Laceration of arm Long-term insulin use Lumbar spondylosis Lumbar stenosis Major depressive disorder, 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 Mixed hyperlipidemia SANTANA (nonalcoholic steatohepatitis) Nonsmoker OA (osteoarthritis) Obesity, morbid, BMI 40.0-49.9 ULISES (obstructive sleep apnea) Pain, foot, right, chronic Peripheral edema Psoriasis Renal mass Shoulder pain Stage 3a chronic kidney disease Stasis ulcer Type 2 diabetes mellitus with hyperlipidemia Type 2 diabetes mellitus with peripheral vascular disease Type 2 diabetes mellitus with stage 3a chronic kidney disease and hypertension Urgency of urination Vitamin (more content not included)... Normal [facility] Comment on above: Result Comment: Elec tronically Signed By: Tomi Maria MD\.br\Date and Time Signed: 11/27/24 10:32 EST\.br\Electronically Co-Signed By: Helena Gomez MA\.br\Date and Time Co-Signed: 11/27/24 10:32 EST Ambulatory Visit Summaryon 0 11-18-2024 Ambulatory Visit Summary Ambulatory Visit Summary DONG WHITMORE :1950 Visit Date:11/18/2024 Ambulatory Visit Instructions Your Diagnosis 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 BMI 45.0-49.9, adult Obesity, morbid, BMI 40.0-49.9 Nonsmoker Laceration of arm Your Care Team Attending Physician - Haider Hickman MD Primary Care Physician - Haider Hickman MD This Is Your Medications List [place] Prescription (Eric Prather, 5 years.) acarbose (acarbose 25 mg oral tablet) aspirin (aspirin 81 mg Oral EC Tab) buPROPion (buPROPion 300 mg/24 hours ER Tab) calcium carbonate (calcium (as carbonate) 600 mg oral tablet) carvedilol (carvedilol 6.25 mg Tab) cephalexin (cephalexin 500 mg Cap) insulin aspart (NovoLog) losartan (losartan 50 mg Tab) nitroglycerin (nitroglycerin 0.4 mg sublingual Tab) omega-3 polyunsaturated fatty acids (Fish Oil 1200 mg oral capsule) pioglitazone (pioglitazone 30 mg Tab) potassium chloride (Potassium Chloride (Rfw-Zrup-Cjb M20) 20 mEq oral tablet, extended release) [...] cardiac conduit, Stimulator. Discharge Vitals Temperature (Tympanic) 36.8 ???C Heart Rate (Peripheral) 73 Respiratory Rate 18 Blood Pressure 138/84 Height 168 cm Height 66 in Weight 131 kg Weight 288.805 lb BMI 46.41 What to do next Scheduled Follow-Up Appointments Monday 9:30 AM EST With: Candace SCHUSTER, Tomi Sheffield Where: [facility] [address] [place] [address] [place] [address]- Monday 10:00 AM EDT With: Kristofer SCHUSTER, Haider Bee Where: [address] [address] 8:00 AM EDT With: Where: [address] [address]- Monday 9:15 AM EDT With: LATRICIA SCHUSTER, Araceli Treadwell Where: [facility] [place] [address] [address], [address] [place] [address]- Medications What How Much When [...] AFTER YOU RUN OUT OF METOPROLOL* Unchanged cephalexin (cephalexin 500 mg Cap) Unchanged insulin aspart (NovoLog) See instructions SubCutaneous [...] Every day Unchanged potassium chloride (Potassium Chloride (Bkk-Cghh-Gqv M20) 20 mEq oral tablet, extended release (more content not included)... Normal [facility] Family Medicine Office/Clini c Noteon 11-18-2024 Family Medicine Office/Clinic Note Family Medicine Office/Clinic Note Chief Complaint Suture Removal The patient presents with toe pain and issues related to suture removal in the arm. HPI Staff Pt presents today for suture removal. No problems with laceration. History of Present Illness The patient is a 74-year-old male presenting with toe pain. The pain has been persistent for several years, starting shortly before the patient retired. It has now become a significant concern, affecting the patient's quality of life and sleep. The pain is primarily in the middle toe. The patient reports prior consultations and attempts at management, including several EMG tests, switching pain medications, and using tizanidine, which has been somewhat effective but no longer provides the same relief. Current management is challenging as previous medications like Lyrica were ineffective, and changing to capsule forms of tizanidine was not beneficial due to the inability to adjust the dose effectively. Additionally, the patient has a history of morbid obesity, with a BMI of 45.0-49.9, and presents for suture removal from a previous laceration on the arm. The sutures include both mattress and intermittent types, with challenges noted in removing mattress sutures. The patient reports discomfort during suture removal but is managing without active pain. - Advised to continue monitoring BMI and engage in a weight management program. - Discussion on minimizing sedentary behavior to alleviate nerve issues, including not sitting on the wallet. Review of Systems PHQ Score Initial Depression Screen Score: 0 SCORE Physical Exam Vitals & Measurements T: 36.8 ???C(Tympanic) HR: 73(Peripheral) RR: 18 BP: 138/84 SpO2: 99% HT: 66 in HT: 168 cm WT: 131 kg WT: 288.805 lb BMI: 46.41 General: alert, no acute distress ENMT: oral mucosa moist Cardiovascular: Regular rate and rhythm, normal peripheral perfusion Respiratory: Lungs clear to auscultation, respirations non labored Extremities: no deformity, no trauma, middle toe pain Neurological: oriented x 4, level of consciousness appropriate for age, CN II-XII intact, motor strength equal & normal bilaterally, speech normal Abdomen: Soft, Non-tender, Non-distended, + Bowel sounds Assessment/Plan 1. 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 (Z89.421: Acquired absence of other right toe(s)) The patient continues to experience significant toe pain despite previous interventions. Will follow up with pain management for further evaluation and explore potential options such as an EMG to investigate nerve involvement. The patient is advised to avoid aggravating factors like sitting on the affected side. 2. BMI 45.0-49.9, adult (Z68.42: Body mass index [BMI] 45.0-49.9, adult) Emphasize the importance of a comprehensive weight management plan, including dietary modifications and physical activity tailored to the patient's capabilities. Monitor and encourage gradual weight reduction to alleviate associated comorbidities. 3. Obesity, morbid, BMI 40.0-49.9 (E66.01: Morbid (severe) obesity due to excess calories) The patient???s morbid obesity continues to be managed. Efforts were discussed to reduce BMI, improving overall health outcomes. Continued emphasis on lifestyle changes and possible future interventions if weight remains stable. 4. Nonsmoker (Z78.9: Other specified health status) Please continue to not smoke. 5. Laceration of arm (S41.119A: Laceration without foreign body of unspecified upper arm, initial encounter) Completed suture removal of the upper arm, which included [id number] mattress sutures. The area shows good signs of healing. No infection noted. Recommend monitoring for any signs of complications and ensure the patient understands proper wound care instructions. Ordered: Body Mass Index (BMI) documented 3008F Current tobacco non-user 1036F Depression Screening Negative 3352F Influenza immunization status assessed 1030F Medication list documented in medical record 1159F Most recent diastolic blood pressure 80-89 mm Hg 3079F Patient screen for fall risk: no falls in last year or 1 fall with no injury in last year 1101F Review of all meds by a prescribing practitioner or clinical pharmacist documented in EHR 1160F Systolic BP 130-139 mm Hg (Most Recent) 3075F 74-year-old male with a history of toe pain, accompanied by acquired absence of the second toe on the right foot, obesity, and arm laceration undergoing suture removal. The patient's chief concern today is management of persistent toe pain, which is negatively impacting his quality of life. Prior evaluations have included EMG studies and medication trials, with limited relief. Current pain management with tizanidine is being optimized. Suture removal is relevant due to ongoing discomfort in the arm, contributing to the overall pain experience. I discussed the ongoing management of the patient's toe pain and the lack of sleep due to discomfort. We reviewe (more content not included)... Normal [facility] Comment on above: Result Comment: Elec tronically Signed By: Kristofer SCHUSTER, Haider Bee\.br\Date and Time Signed: 11/18/24 09:32 EST Ambulatory Visit Summaryon 0 2-04-2025 Ambulatory Visit Summary Ambulatory Visit Summary DONG WHITMORE :1950 Visit Date:11/12/2024 Ambulatory Visit Instructions Your Diagnosis BMI 45.0-49.9, adult Obesity, morbid, BMI 40.0-49.9 Nonsmoker Your Care Team Attending Physician - Haider Hickman MD Primary Care Physician - Haider Hickman MD This Is Your Medications List [place] Prescription (Gillianmile Ochoalizzie, 5 years.) acarbose (acarbose 25 mg oral tablet) aspirin (aspirin 81 mg Oral EC Tab) buPROPion (buPROPion 300 mg/24 hours ER Tab) calcium carbonate (calcium (as carbonate) 600 mg oral tablet) carvedilol (carvedilol 6.25 mg Tab) cephalexin (cephalexin 500 mg Cap) insulin aspart (NovoLog) losartan (losartan 50 mg Tab) nitroglycerin (nitroglycerin 0.4 mg sublingual Tab) omega-3 polyunsaturated fatty acids (Fish Oil 1200 mg oral capsule) pioglitazone (pioglitazone 30 mg Tab) potassium chloride (Potassium Chloride (Lcb-Zuzm-Yqz M20) 20 mEq oral tablet, extended release) [...] conduit, Stimulator. Discharge Vitals Heart Rate (Peripheral) 82 Respiratory Rate 18 Blood Pressure 126/84 Height 168 cm Height 66 in Weight 131 kg Weight 288.805 lb BMI 46.41 What to do next Scheduled Follow-Up Appointments Monday 9:00 AM EST With: Haider Hickman MD Where: [address] [address]- Monday 9:30 AM EST With: Candace SCHUSTER, Tomi Sheffield Where: [facility] [address] [facility] [place] [address]- Monday 10:00 AM EDT With: Haider Hickman MD Where: [address] [address] 8:00 AM EDT With: Where: [address] [address]- Monday 9:15 AM EDT With: Araceli BERMUDEZ MD Where: [facility] [address], [address] [place] [address]- Medications What How Much When [...] AFTER YOU RUN OUT OF METOPROLOL* Unchanged cephalexin (cephalexin 500 mg Cap) Unchanged insulin aspart (NovoLog) See instructions SubCutaneous [...] Tablets By Mouth Every day Unchanged potassium chlorid (more content not included)... Normal [facility] Family Medicine Office/Clini c Noteon 11-12-2024 Family Medicine Office/Clinic Note Family Medicine Office/Clinic Note Chief Complaint ER follow up The patient presents with dizziness in the morning and stiffness affecting mobility. HPI Staff Pt presents today for ER follow up. Hospital: [facility] Visit date: 11/09/2024 Symptoms the patient presented with: laceration Current concerns: Problems with stability. Check laceration to ensure no infection. History of Present Illness The patient is a 74-year-old male presenting with complaints of dizziness and difficulty walking. The dizziness primarily occurs when the patient first gets up in the morning and is accompanied by feelings of unsteadiness. Upon waking up and rolling over, the patient experiences transient severe dizziness, louis to an inner ear issue. This sensation has been linked to changes in position, possibly suggesting an orthostatic component. The patient's vestibular test was completed and showed no significant abnormalities in eye movement, but is scheduled for further evaluation. Furthermore, the patient reports significant stiffness that hampers mobility. Despite engaging in physical therapy, he finds it challenging to maintain balance. Exercises with an under-desk bicycle have been difficult, particularly keeping his feet on the pedals. There is a mention of having attended physical therapy sessions and undergoing a vestibular exam, though the patient still feels progressively increasing stiffness upon ambulation. The patient had sutures placed on the 1st of the month, and upon current evaluation, these appear healed without signs of infection. However, one suture appears ruptured, and the patient has been advised to schedule another appointment for removal. The patient's past medical history includes significant morbid obesity. The conversations and treatment discussion relate to ongoing efforts to address weight-related issues given his BMI between 45.0-49.9. - Physical therapy attendance and inquiries regarding the effectiveness of exercises. - Referral to pain management for assessment of musculoskeletal pain and stiffness. - Encouraged slow transitioning from a lying to standing position to manage dizziness associated with orthostatic changes. Review of Systems PHQ Score Initial Depression Screen Score: 0 SCORE Physical Exam Vitals & Measurements HR: 82(Peripheral) RR: 18 BP: 126/84 SpO2: 96% HT: 66 in HT: 168 cm WT: 131 kg WT: 288.805 lb BMI: 46.41 General: alert, no acute distress ENMT: oral mucosa moist Cardiovascular: Regular rate and rhythm, normal peripheral perfusion Respiratory: Lungs clear to auscultation, respirations non labored Extremities: no deformity, no trauma Neurological: oriented x 4, level of consciousness appropriate for age, CN II-XII intact, motor strength equal & normal bilaterally, speech normal Abdomen: Soft, Non-tender, Non-distended, + Bowel sounds Assessment/Plan 1. Arm laceration (S41.119A: Laceration without foreign body of unspecified upper arm, initial encounter) Need For Suture Removal Follow-up scheduled for removal upon the next appointment. Monitoring for signs of complications until removal. NO signs of infection. 2. Dizziness (R42: Dizziness and giddiness) Need for hydration advice to address orthostatic symptoms. Emphasis on slow positional changes upon waking. Further Daniel-Hallpike maneuver to be considered if symptoms persist, with continued evaluation by an hearing health technician pending referral completion. 3. Weakness (R53.1: Weakness) Continue with PT. Will address further once PT is done. May need Ortho. 4. BMI 45.0-49.9, adult (Z68.42: Body mass index [BMI] 45.0-49.9, adult) BMI education added. 5. Obesity, morbid, BMI 40.0-49.9 (E66.01: Morbid (severe) obesity due to excess calories) Continued encouragement of weight management and healthy lifestyle intervention. Monitoring through continued sessions with the physical therapist. 6. Nonsmoker (Z78.9: Other specified health status) Please continue to not smoke. 74-year-old male with history of morbid obesity presenting with morning dizziness and stiffness affecting mobility. The dizziness aligns with orthostatic hypotension, described during positional changes, while stiffness resembles characteristics potentially linked with arthritis or musculoskeletal weakness. The exploratory vestibular tests were inconclusive, and the plan for further tests is in place. The patient and I reviewed his symptoms of morning dizziness and discussed management strategies, including lifestyle modifications targeting orthostatic hypotension. We discussed the importance of gradual changes in posture to limit symptoms and the impact of adequate hydration. I highlighted the need for ongoing engagement with physical therapy to assist with balance and stiffness, emphasizing reporting any worsening conditions to ensure gait stability. Pain management consultations were arranged to explore potential interventions for stiffness relief, tailored to his musculoskeletal nee (more content not included)... Normal [facility] Comment on above: Result Comment: Elec tronically Signed By: Haider Hickman MD\.br\Date and Time Signed: 11/12/24 12:08 EST Ambulatory Visit Summaryon 0 11-04-2024 Ambulatory Visit Summary Ambulatory Visit Summary DONG WHITMORE :1950 Visit Date:11/04/2024 Ambulatory Visit Instructions Your Diagnosis Coronary arteriosclerosis in [place] artery Mixed hyperlipidemia Acquired absence of second [...] Hickman MD. This Is Your Medications List [place] Prescription (Eric Prather, 5 years.) acarbose (acarbose [...] 30 mg Tab) potassium chloride (Potassium Chloride (Dza-Tezc-Zbt M20) 20 mEq oral tablet, extended release) [...] EDT With: Kristofer SCHUSTER, Haider Bee Where: [address] [address]24 8:00 AM EDT With: Where: [address] [address]- Monday 9:15 AM EDT With: LATRICIA SCHUSTER, Araceli Treadwell Where: [facility] [address], [address] [place] [address]- Medications What How Much When Why Instructions [...] Peripheral edema Handicap Donard, 5 years. Unchanged nitroglycerin (nitroglycerin 0.4 mg sublingual Tab) 1 Tablets Sublingual Every 5 minutes as needed for for chest pain Unchanged omega-3 polyunsaturated fatty acids (Fish Oil 1200 mg oral capsule) 1 Capsules By Mouth Every day Unchanged pioglitazone (pioglitazone 30 mg Tab) 1 Tablets By Mouth Every day Unchanged potassium chloride (Potassium Chloride (Xnn-Enkz-Oot M20) 20 mEq oral tablet, ex (more content not included)... Normal [facility] Medicine Office/Clini c Noteon 11-04-2024 Family Medicine [...] and sporadic. The underlying coronary arteriosclerosis in [place] arteries, benign hypertension with chronic kidney disease, [...] cholelithiasis present Assessment/Plan 1. Coronary arteriosclerosis in [place] artery (I25.10: Atherosclerotic heart disease of [place] coronary artery without angina pectoris) Diet and exercise. No CP at this time. 2. Mixed hyperlipidemia (E78.2: Mixed hyperlipidemia) Continue on statins as before. 3. Long-term insulin use (Z79.4: joint terminal attack controller (current) use of insulin) Continue on Insulin. [...] an i (more content not included)... Normal [facility] Comment on above: Result Comment: Elec tronically Signed By: Haider Hickman MD\.br\Date and Time Signed: 11/04/24 11:42 EST [facility] 10-24-2024 Albumin DL <= 20 mg/L (U) [Mass/Vol] 4.0 mg/dL High 0.0-1.9 [facility] Comment on above: Performed By: #### 1 [id number] #### [facility] [address] [place] [address] Ambulatory Visit Summaryon 0 10-15-2024 Ambulatory Visit [...] Hickman MD This Is Your Medications List [place] Prescription (Eric Prather, 5 years.) acarbose (acarbose [...] 30 mg Tab) potassium chloride (Potassium Chloride (Knl-Clil-Yyb M20) 20 mEq oral tablet, extended release) [...] Appointments 2024 10:40 AM EST With: Where: [address] [address]24 10:30 AM EST With: Kristofer SCHUSTER, Haider Bee Where: [address] [address]24 8:00 AM EDT With: Where: [address] [place] [address]- Monday 9:15 AM EDT With: LATRICIA SCHUSTER, Araceli Treadwell Where: [facility] [place] [address], [address] [place] [address]- Medications What How Much When Why Instructions [...] tab(s) Oral Daily Unchanged Misc Prescription (Handicap Placlizzie, 5 years.) See instructions Stage 3a chronic [...] 1 Tablets (more content not included)... Normal [facility] Family Medicine Office/Clini c Noteon 10-15-2024 Family [...] Diff Comprehe (more content not included)... Normal [facility] Comment on above: Result Comment: Elec tronically Signed By: Kristofer SCHUSTER, Haider Tejada\Date and Time Signed: 10/15/24 13:10 EST CMPon 09-10-2024 Albumin [Mass/Vol] 4.3 g/dL Normal 3.3-5.0 [facility] Comment on above: Performed By: #### 2 [id number] #### [facility] [address] [place] [address] Albumin/Globulin (S) [Mass conc ratio] 1.7 Normal 1.1-2.2 [facility] Comment on above: Performed By: #### 2 143851 #### [facility] [address] [place] [address] ALP [Catalytic activity/Vol] 73 Int._Unit/L Normal 21-98 [facility] Comment on above: Performed By: #### 2 [id number] #### [facility] [address] [place] [address] ALT No additional P-5'-P [Catalytic activity/Vol] 23 Int._Unit/L Normal 6-46 [facility] Comment on above: Performed By: #### 2 [id number] #### [facility] [address] [place] [address] Anion gap [Moles/Vol] 12 mmol/L Normal 6-16 [facility] Comment on above: Performed By: #### 2 588375 #### [facility] [address] [place] [address] AST [Catalytic activity/Vol] 25 Int._Unit/L Normal 5-43 [facility] Comment on above: Performed By: #### 2 355131 #### [facility] [address] [place] [address] Bilirubin [Mass/Vol] 0.5 mg/dL Normal 0.0-1.1 [facility] Comment on above: Performed By: #### 2 344052 #### [facility] [address] [place] [address] Calcium [Mass/Vol] 9.2 mg/dL Normal 8.9-11.1 [facility] Comment on above: Performed By: #### 2 872509 #### [facility] [address] [place] [address] Chloride [Moles/Vol] 108 mmol/L Normal 101-111 [facility] Comment on above: Performed By: #### 2 848689 #### [facility] [address] [place] [address] CO2 [Moles/Vol] 26 mmol/L Normal 21-31 [facility] Comment on above: Performed By: #### 2 494985 #### [facility] [address] [place] [address] Creatinine [Mass/Vol] 1.3 mg/dL Normal 0.5-1.3 [facility] Comment on above: Performed By: #### 2 914543 #### [facility] [address] [place] [address] Globulin (S) [Mass/Vol] 2.5 g/dL Normal 1.4-4.0 [facility] Comment on above: Performed By: #### 2 837298 #### [facility] [address] [place] [address] Glucose [Mass/Vol] 137 mg/dL Normal 55-199 [facility] Comment on above: Performed By: #### 2 819886 #### [facility] [address] [place] [address] Potassium [Moles/Vol] 4.7 mmol/L Normal 3.5-5.3 [facility] Comment on above: Performed By: #### 2 246337 #### [facility] [address] [place] [address] Protein [Mass/Vol] 6.8 g/dL Normal 6.0-7.8 [facility] Comment on above: Performed By: #### 2 004265 #### [facility] [address] [place] [address] Sodium [Moles/Vol] 141 mmol/L Normal 135-145 [facility] Comment on above: Performed By: #### 2 393782 #### [facility] [address] [place] [address] Urea nitrogen [Mass/Vol] 28 mg/dL High 5-21 [facility] Comment on above: Performed By: #### 2 534141 #### [facility] [address] [place] [address] Urea nitrogen/Creatinine [Mass ratio] 22 No Units High 10-20 [facility] Comment on above: Performed By: #### 2 954430 #### [facility] [address] [place] [address] Magnesiumon 09-10-2024 Magnesium [Mass/Vol] 1.8 mg/dL Normal 1.3-2.4 [facility] Comment on above: Performed By: #### 2 048178 #### [facility] [address] [place] [address] eGFRon 09-10-2024 eGFR 57 mL/min/1.73 m2 Low >=59 [facility] Comment on above: Performed By: #### 1 [id number] #### [facility] [address] [place] [address] Family Medicine Office/Clini c Noteon 09-09-2024 Family [...] involvement and proprioceptive complications. Consider assessment at [facility] for balance and gait evaluation. Discuss [...] manage morbid obesity. Possible consultation with a sales support engineer for weight management strategies. Ordered: Body Mass [...] is fro (more content not included)... Normal [facility] Comment on above: Result Comment: Elec tronically [...] at 6.25mg BID. Follow-up 2-3 months. THanks [facility] Ambulatory Visit Summaryon 1 10-15-2023 [...] Hickman MD This Is Your Medications List [place] Prescription (Handicap Yamilka, 5 years.) acarbose (acarbose [...] 30 mg Tab) potassium chloride (Potassium Chloride (Ppy-Wlhn-Flr M20) 20 mEq oral tablet, extended release) [...] EST With: Kristofer SCHUSTER, Haider Bee Where: [address] [address] 2024 8:00 AM EDT With: Where: [address] [address]- Monday 9:15 AM EDT With: Araceli BERMUDEZ MD Where: [facility] [address], [address] [place] [address]- Medications What How Much When Why Instructions [...] Every day Unchanged potassium chloride (Potassium Chloride (Aaz-Edjw-Omj M20) 20 mEq oral tablet, extended release) 1 Tablets By Mouth Every day Unchanged pregabalin (Lyrica 75 mg Cap) 1 Capsules By Mouth 2 times a day Unchanged simvastatin (simvastatin 40 mg Tab) 1 Tablets (more content not included)... Normal [facility] Family Medicine Office/Clini c Noteon 08-15-2024 Family [...] BID, # 60 cap(s), Refills(s) 1, Pharmacy: [facility]/pharmacy #[id number], 169, cm, 08/15/24 10:34:00 [...] interactions b (more content not included)... Normal [facility] Comment on above: Result Comment: Elec tronically Signed By: Kristofer SCHUSTER, Haider Sandhu.br\Date and Time Signed: 08/15/24 11:26 EST Ksenia 08-14-2024 CNOV Office Visit (NPRC21 ) DONG WHITMORE ([id number]) 1950 M Date Time Provider Department 08/14/24 10:00 AM CHIQUI ROBLES NPRC21 During your visit today, we recorded the following information about you: Pulse Respiration Blood pressure Weight 59/minute 16/minute 137/69 117.2 kg Claudia Chilel MD 08/14/2024 10:51 AM Signed [facility] [place] August 14, 2024 This is a face [...] Chiqui Robles MD 08/26/2024 4:34 PM Addendum [facility] STAFF PHYSICIAN NOTE OF PERSONAL INVOLVEMENT [...] - psychotherapy was utilized during the visit. Qjhz-iz-hxdl time: 12312 (16-37 mins) actual time spend in psychotherapy 18 minutes Type of therapeutic intervention:Supportiv e Target symptoms: Pain coping skills and Acceptance and adapting Progress/Session notes:processing Interactive Complexity: None STAFF PHYSICIAN:: Chiqui Robles MD DATE of SERVICE: 08/14/2024 Referring Provider: CHIQUI ROBLES [[id number]] Allergies As of Date: 08/14/2024 Noted Allergy [...] [E66.813, E66.01, Z68.41] Order(s):PROVIDER ORDERED FOLLOW UP [7134771] Order #: [id number]: 1 Prescriptions as of 08/26/2024 - pregabalin (LYRICA) 75 mg capsule Take 75 mg by mouth two times a day. - memantine (NAMENDA) (more content not included)... Normal [facility] Office Visiton 08-07-2024 Follow-up visit [id number] Dong Whitmore Boom 1950 M Date Provider Department Center 08/07/2024 511[facility] Family History Problem Relation Age of Onset Coronary artery disease Other Diabetes Other Family Status - Relation Status Age at Other Level of Service:01405 DC OFFICE/OUTPATIENT ESTABLISHED MOD MDM 30 MIN Reason for Visit and Comments: Hypertension [062987] - He brought BP log from home with him today. Readings are usually in the 130-140's systolic. Hyperlipidemia [182] Coronary Artery Disease [187] - Denies chest pain and SOB. Normal [facility] Ambulatory Visit Summaryon 1 Ambulatory Visit [...] 30 mg Tab) potassium chloride (Potassium Chloride (Mok-Ypgx-Iym M20) 20 mEq oral tablet, extended release) [...] AM EST With: Haider Hickman MD Where: [address] [address]- Monday 3:30 PM EST With: Haider Hickman MD Where: [address] [address] 2024 8:00 AM EDT With: Where: [facility] [place] [address] [place] [address]- Monday 9:15 AM EDT With: Araceli BERMUDEZ MD Where: [facility] [place] [address] [place] [address]- Someone Will Contact You Regarding These Appointments [facility] External Ambulatory Referral, Neurology, 08/01/24 12:15:00 EDT, Suicidal ideation Unspecified mononeuropathy of right lower limb BMI 40.0-44.9, adult Morbid obesity with body mass index (BMI) of 40.0 or higher Nonsmoker Medications What How Much When Why Instructions New pregabalin (Lyrica 75 mg Cap) 1 Capsules By Mouth 2 times a day Pickup at [facility]/pharmacy #6177 Changed tizanidine (tiZANidine 4 mg Tab) 4 Milligram By Mouth Every 8 hours Pickup at [facility]/pharmacy #[id number] Changed venlafaxine (venlafaxine 75 mg Tab) 1 Tablets By Mouth 2 times a day Pickup at [facility]/pharmacy #6177 Unchanged acarbose (acarbose 25 [...] 1 Table (more content not included)... Normal [facility] Family Medicine Office/Clini c Noteon 08-01-2024 Family [...] E&M of Est. Patient High 40-54 Min 82374 [facility] External Ambulatory Referral Prolonged OV 15 min 91632 2. Unspecified mononeuropathy of right lower limb [...] E&M of Est. Patient High 40-54 Min 86978 [facility] External Ambulatory Referral Prolonged OV 15 min 34916 3. BMI 40.0-44.9, adult (Z68.41: Body mass index [BMI] 40.0-44.9, adult) Discussed the importance of lifestyle changes, including dietary modifications and physical activity, to manage BMI. Addressed the potential contributions of morbid obesity to peripheral neuropathic symptoms. Ordered: Body Mass Index (BMI) documented 3008F Current tobacco non-user 1036F Depression Screening Positive 3354F E&M of Est. Patient High 40-54 Min 26974 Fall Risk Screen 2 or more w/injury 1100F [facility] External (more content not included)... Normal [facility] Comment on above: Result Comment: Elec tronically [...] other machine again): L sitting 175/112 Normal [facility] Telephoneon 07-23-2024 Telephone [id number] Dong Whitmore 1950 M Date Provider Department Center 07/23/2024 928-[facility]NEY [facility] Sarkar Family History Problem Relation Age of Onset Coronary artery disease Other Diabetes Other Family Status - Relation Status Age at Other Normal [facility] Office Visiton 07-19-2024 Follow-up visit [id number] Dong Whitmore 1950 M Date Provider Department Center 07/19/2024 [facility]8-ELA[facility] Sarkar Family History Problem Relation Age of Onset Coronary artery disease Other Diabetes Other Family Status - Relation Status Age at Other Level of Service:75513 DC OFFICE/OUTPATIENT ESTABLISHED MOD MDM 30 MIN Normal [facility] Ambulatory Visit Summaryon 1 Ambulatory Visit [...] physician if questions or concerns Misc Prescription (Handeulaliop Yamilka, 5 years.) acarbose (acarbose 25 mg [...] 30 mg Tab) potassium chloride (Potassium Chloride (Udx-Lhhk-Ews M20) 20 mEq oral tablet, extended release) [...] PM EST With: Haider Hickman MD Where: [address] [address]- Monday 10:30 AM EST With: Araceli BERMUDEZ MD Where: [facility] [address], [address] [place] [address] 2024 8:00 AM EDT With: Where: [address] [address]- Monday 9:15 AM EDT With: Araceli BERMUDEZ MD Where: [facility] [address], [address] [place] [address]- You Need to Schedule the Following Appointments Follow Up with Araceli BERMUDEZ MD, URL When: Where: [address] [address]- Medications What How Much When Why Instructions Unchanged sodium bicarbonate (sodium bicarbonate 650 mg Tab) 2 Tablets By Mouth 3 times a day Duration: 90 Days Pickup at [facility]/pharmacy #6148 Unchanged acarbose (acarbose 25 mg oral tablet) [...] questions or concerns Unchanged Misc Prescription (Handicap Yamilka, 5 years.) Se (more content not included)... Normal [facility] Reminderson 07-17-2024 Reminders Reminders From: Roya Álvarez To: PREM - Bia Bermudez; Sent: 07/17/2024 10:05:54 EDT Show up: 05/17/2025 10:05:00 EDT Subject: Renal US Due Date/Time: 05/17/2025 10:05:00 EDT Reminder Message Renal US to be done prior to 1 year appointment. [facility]. Order created today. Normal [facility] Urology Office/Clinic Noteon 07-17-2024 Urology Office/Clinic Note Urology Office/Clinic Note Chief Complaint follow up HPI Staff 73 yo male here for f/up with renal US. Previous dx: kidney stone, complex renal cyst, BPH w/ LUTS, impotence. Taking Sodium Bicarb 650mg tid. Renal US 10/31/23 TB. KUB 11/10/23 TB - no stones id'd. S/p cysto, R RPG, R ESWL 01/04/24. Renal US 01/24/24 [facility] - neg limited renal ultrasound. Renal US 07/04/24 TB - 1.3 cm cyst involving the upper [...] with voice recognition artificial intelligence software, specifically [employer], [employer] and or [employer]. Substitutions may have occurred due to the [...] RPG, R ESWL 01/04/24. Renal US 01/24/24 [facility] - neg limited renal ultrasound. Renal US [...] Contact Information Araceli BERMUDEZ MD, URL [address] [address]- Additional Instructions: 1 year w/ renal US Patient Education Dietary Guidelines to Help Prevent Kidney Stones I, Roya Álvarez, personally scribed for Dr. Bermudez on 07/17/2024 10:05:06 (more content not included)... Normal [facility] Comment on above: Result Comment: Elec tronically Signed By: Araceli BERMUDEZ MD\.br\Date and Time Signed: 07/17/24 10:09 EDT\.br\Electronically Co-Signed By: Roya Álvarez\Date and Time Co-Signed: 07/17/24 10:05 EDT Office Visiton 06-26-2024 Follow-up visit [id number] Dong Whitmore 1950 M Date Provider Department Center 06/26/2024 [facility] Family History Problem Relation Age of Onset Coronary artery disease Other Diabetes Other Family Status - Relation Status Age at Other Level of Service:95785 DC OFFICE/OUTPATIENT ESTABLISHED MOD MDM 30 MIN Reason for Visit and Comments: Coronary Artery Disease [187] Hypertension [714151] Normal [facility] XR Foot - right 3 [facility] Imaging Result: [facility] Radiology Study observation (narrative) [facility] No Panel Informationon 06-12 Chelle Brandon NP [...] 30 mg Tab) potassium chloride (Potassium Chloride (Bkx-Yuyf-Zpp M20) 20 mEq oral tablet, extended release) [...] Araceli BERMUDEZ MD Where: [facility] [address] [place] [address]- Monday 3:30 PM EST With: Haider Hickman MD Where: [address] [address]- Monday 10:30 AM EST With: Araceli BERMUDEZ MD Where: [facility] [address] [place] [address]- 2024 8:00 AM EDT With: Where: [address] [address]- Medications What How Much When Why Instructions [...] Peripheral edema Handicap Yamilka, 5 years. Unchanged nitrog (more content not included)... Normal [facility] Medicine Office/Clini c Noteon 05-23-2024 Family Medicine [...] 10 days Encouraged to leave the are CONTINUOUS [employer]ESS [employer]FFEE RO[employer]ER f/u with pcp after seen at wound clinic Ordered: clindamycin, 300 mg = 1 cap(s), Oral, BID, X 10 day(s), # 20 cap(s), Refills(s) 0, Pharmacy: [facility]/pharmacy #[id number], 169, cm, 05/22/24 14:52:00 [...] day(s), # 20 cap(s), Refills(s) 0, Pharmacy: [facility]/pharmacy #[id number], 169, cm, 05/22/24 14:52:00 EDT, Height/Length Dosing, 122, kg, 05/22/24 14:52:00 EDT, Weight Dosing 3. Non-smoker (Z78.9: Other specified health status) Encouraged to continue as a non-smoker Ordered: clindamycin, 300 mg = 1 cap(s), Oral, BID, X 10 day(s), # 20 cap(s), Refills(s) 0, Pharmacy: [facility]/pharmacy #[id number], 169, cm, 05/22/24 14:52:00 [...] Oral, BID (more content not included)... Normal [facility] Comment on above: Result Comment: Elec tronically [...] Hickman MD This Is Your Medications List [place] Prescription (Handicap Yamilka, 5 years.) acarbose (acarbose [...] 30 mg Tab) potassium chloride (Potassium Chloride (Qwx-Fdhd-Zxs M20) 20 mEq oral tablet, extended release) [...] With: Kajal Cam DPM Where: [facility] [place] Monday 9:15 AM EDT With: Araceli BERMUDEZ MD Where: [facility] [address] [place] [address]- Monday 3:30 PM EST With: Haider Hickman MD Where: [address] [address]- Monday 10:30 AM EST With: Araceli BERMUDEZ MD Where: [facility] [address] [place] [address]- 2024 8:00 AM EDT With: Where: [address] [address]- Medications What How Much When Why Instructions New clindamycin (clindamycin 300 mg oral cap) 1 Capsules By Mouth 2 times a day Cellulitis of leg BMI 40.0-44.9, adult Non-smoker Class 3 severe obesity due to excess calories with body mass index (BMI) of 40.0 to 44.9 in adult Duration: 10 Days Pickup at [facility]/pharmacy #0049 Unchanged acarbose (acarbose 25 mg oral tablet) [...] Unchanged nitroglyce (more content not included)... Normal [facility] Medicine Office/Clini c Noteon 05-14-2024 [...] br/min SpO2 : 95 % Debra Bermudez - 05/13/2024 10:35 EDT Chief Complaint : Subsequent [...] : Living will, Medical durable power of commonwealth attorney Organ Donation Consent : Yes Debra [...] Last Reviewed Dt/Tm: 05/13/2024 09:44:11 EDT Location: [facility] ; Anesthesia Minutes: 0 ; [...] 05/13/2024 09:44:11 (more content not included)... Normal [facility] Comment on above: Result Comment: Elec tronically Signed By: Haider Hickmna MD\.br\Date and Time Signed: 05/14/24 10:23 EDT\.br\Electronically Co-Signed By: Debra Bermudez\.br\Date and Time Co-Signed: 05/13/24 13:04 EDT CNOVon 04-24-2024 CNOV Office Visit (NPRC21 ) DONG WHITMORE ([id number]) 1950 M Date Time Provider Department 04/24/24 9:00 AM CHIQUI ROBLES NPRC21 During your visit today, we recorded the following information about you: Pulse Blood pressure Weight Height 61/minute 122/89 122.5 kg 1.702 m Parish Rios MD 04/24/2024 11:26 AM Signed [facility] [place] April 24, 2024 This is a face [...] Camacho Desimir, MD 04/24/2024 11:26 AM Signed [facility] STAFF PHYSICIAN NOTE OF PERSONAL INVOLVEMENT IN CARE IMPRESSION: Complex regional pain syndrome Adjustment Disorder Tried multiple injections, procedures, surgeries. No benefit Tried SCS and recently DRG without success. Discussed ketamine PLAN: Ketamine infusions Consider scrambler therapy Psych psychology Memantine 5mg Psychotherapy Add-on Progress Note Due to medical condition and comorbid psychological and behavioral concerns - psychotherapy was utilized during the visit. Khaw-py-ykjn time: 53039 (16-37 mins) actual time spend in psychotherapy [...] which included preparing to see the patient, grne-cb-lqhy patient care, completing clinical documentation, performing a medically appropriate examination, and counseling and educating the patient/family/caregiv er. As noted, the patient's clinical situation is complex and serious with significant comorbidity of pain and functional limitations. This requires higher levels of time, intensity, and expense with longitudinal care and support. STAFF PHYSICIAN:: Chiqui Robles MD DATE of SERVICE: 04/24/2024 Referring Provider: HERBERTH ARAUJO [[id number]] Allergies As of Date: 04/24/2024 Noted Allergy [...] obesity type (HCC) [E66.01, Z68.41] Order(s):CONSULT TO [facility] FOR PAIN RECOVERY (CHRONIC PAIN) [1398771] Order #: [id number]: 1 PAIN RECOVERY FOLLOW UP ORDER [[id number]] Order #: [id number]: 1 FUTURE PROVIDER ORDERED FOLLOW UP [[id number]] Order #: [id number]: 1 FUTURE memantine (NAMENDA) 5 mg tabletTake 1 tablet by mouth once daily.Disp: 30 tabletRfl: 3 CONSULT TO KETAMINE FOR CHRONIC PAIN [9044] Order #: [id number]: 1 FUTURE Prescriptions as of 04/24/2024 - memantine (NAMENDA) 5 mg tablet Take 1 tablet by mouth once daily. - aspirin, enteric coated (ASPIRIN, ENTERIC COATED) 81 mg EC tablet Take 81 mg by mouth once daily. - fi (more content not included)... Normal [facility] BRIEF OP NOTon 04-03-2024 BRIEF OP NOT HNO ID: [id number] Author: CAPRICE DOWNING MD Service: Pain Management Author Type: Fellow Type: Brief Op Note Filed: 04/03/2024 10:35 Note Text: BRIEF OPERATIVE / PROCEDURE NOTE LOG ID: [id number] SURGERY/PROCEDURE DATE: 04/03/2024 PROCEDURE START TIME: 958 PROCEDURE END TIME: 1030 PRE-OP/PRE-PROCEDURE DIAGNOSIS: Chronic toe pain, right foot [M79.674, G89.29] Complex regional pain syndrome type II of right lower limb [G57.71] POST-OP/POST-PROCEDURE DIAGNOSIS: Chronic toe pain, right foot [M79.674, G89.29] Complex regional pain syndrome type II of right lower limb [G57.71] SURGEON(S)/PROCEDURALI ST(S) AND COAT CUTTER(S): Surgeon(s) and Role: * Herberth Araujo MD, PhD - Primary * Caprice Downing MD No Additional Staff SURGERY/PROCEDURE(S): Attempted Right L4 and L5 Dorsal Root Ganglion Stimulator ANESTHESIA: Anxiolysis and Local anesthetic FINDINGS: None ESTIMATED BLOOD LOSS: Minimal SPECIMENS: None COMPLICATIONS: None Caprice Downing MD Pain Medicine Fellow April 03, 2024 [facility] NURSING PROGon 04-03-2024 NURSING PROG HNO ID: [id number] Author: CAYETANO ROSALES RN Service: Nursing Author Type: Registered Nurse Type: Nursing Progress Note Filed: 04/08/2024 15:32 Note Text: Summary: Follow up phone call Follow up phone call made regarding outcome of procedure. No answer voicemail left - The patient was instructed to call [phone] with the percentage of pain relief and what activities have improved. [employer] message also sent. [facility] NURSING PROG HNO ID: [id number] Author: SURINDER LARES, DENISE Service: Nursing Author Type: Registered Nurse Type: Nursing Progress Note Filed: 04/09/2024 10:09 Note Text: Summary: Post Procedure Call Patient left voice mail. Team was unable to finish procedure due to patient was unable to stay still. No pain relief noted. Surinder Lares RN April 09, 2024 [facility] NURSING PROG HNO ID: [id number] Author: EMILEE HYDE RN Service: ? Author Type: Registered Nurse Type: Nursing Progress Note Filed: 04/03/2024 10:45 Note Text: Dr. Marian Downing (fellow) discusses reason why procedure was aborted today. Other options for pain management was discussed with patient and . Normal [facility] OPERATIVE NOon 04-03-2024 OPERATIVE NO HNO ID: [id number] Author: HERBERTH ARAUJO MD, PhD Service: Pain Management Author Type: Physician Type: Operative Report Filed: 04/03/2024 20:14 Note Text: OPERATIVE/PROCEDURE REPORT : LOG ID: [id number] SURGERY/PROCEDURE DATE: 04/03/2024 INCISION/PROCEDURE START TIME: 9:59 [...] Dorsal Root Ganglion Stimulator SURGEON(S)/PROCEDURALI ST(S) AND COAT CUTTER(S): Surgeon(s) and Role: * Herberth Araujo MD, [...] ELECTRONIC SIGNATURE, Herberth Araujo MD, PhD Normal [facility] HISTORY PHYSICALon HISTORY PHYSICAL HNO ID: [id number] Author: HERBERTH ARAUJO MD, PhD Service: Pain Management Author Type: Physician Type: H&P Filed: 04/03/2024 09:33 Note Text: PROCEDURE EVALUATION AND HISTORY AND PHYSICAL EXAM SUBJECTIVE: Dong Whitmore is a 73 year old man who presents to [facility] for Right L4 and L5 Dorsal Root Ganglion Stimulator Trial. This is his first (1) procedure. Focused Review of Systems: PAIN: Denies any contraindications to the procedure including coagulopathy, infection, recent cerebral/myocardial infarct, and hemodynamic instability. 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 Current Outpatient [...] since the last C[facility] visit: No Provisional Diagnosis: Chronic toe pain, right foot [M79.674, G89.29] Complex regional pain syndrome type II of right lower limb [G57.71] Planned Procedure: Right L4 and L5 Dorsal Root Ganglion Stimulator Trial Caprice Downing MD Pain Medicine Fellow April 03, 2024 Herberth Araujo MD, PhD [facility] NURSING PROGon 04-01-2024 NURSING PROG HNO ID: [id number] Author: HELENA BAUTISTA RN Service: ? Author Type: Registered [...] 2 hours before the appointment. 2. A transport truck driver must be present who can drive you home. If you are coming by medical transport, you must have a responsible person other than the wedding transportation driver with you. 3. Do you take [...] or cannot make the appointment by calling [phone] (Option 2). Normal [facility] Ambulatory Visit Summaryon 0 03-26-2024 Ambulatory [...] Hickman MD This Is Your Medications List [place] Prescription (Eric Prather, 5 years.) furosemide (Lasix 40 mg Tab) potassium chloride (Potassium Chloride (Aqp-Qedj-Uzl M20) 20 mEq oral tablet, extended release) [...] Appointments Monday 9:30 AM EDT With: Where: [facility] Invalid Interpretation Code [address], [address] [place] [address]- \.br \ Monday 2:15 PM EST \.br\ With: Kristofer SCHUSTER, Haider Bee\.br\ Where: [facility] Family Medicine Office/Clini c Noteon 03-26-2024 [...] years., Suppl (more content not included)... Normal [facility] Comment on above: Result Comment: Elec tronically [...] numbers. This can be done either in Fijian (U.S.) or metric measurements. Note that charts and online BMI calculators are available to help you find your BMI quickly and easily without having to do these calculations yourself. To calculate your BMI in Fijian (U.S.) measurements: 1. Measure your weight in [...] for Disease Control and Prevention: www.cdc.gov ? [place] Heart Association: www.heart.org ? National Heart, Lung, and Blood [place]: www.nhlbi.nih.gov Summary ? Body mass index (BMI) is a number that is calculated from a person's weight and height. ? BMI may help estimate how much of a person's weight is composed of fat. BMI can help identify those who may be at higher risk for certain medical problems. ? BMI can be measured using Fijian measurements or metric measurements. ? BMI charts are used to identify whether you are underweight, normal weight, overweight, or obese. This information is not intended to replace advice given to you by your health care provider. Make sure you discuss any questions you have with your health care provider. Document Revised: 06/17/2020 Document Reviewed: 04/24/2020 Elsevier Patient Education ? 2022 [employer]. Normal [facility] HERRERACynthia 03-19-2024 CNPN Telephone (PAINMN) DONG WHITMORE ([id number]) 1950 M Date Time Provider Department 03/19/24 HERBERTH ARAUJO PAINMN During your visit today, we recorded the following information about you: Emilee So RN 03/19/2024 1:32 PM Signed Spoke with patient at request of clinic scheduler as patient has questions about referral to infectious disease. Patient states that he spoke with his PCP, Dr. Hickman ([phone]) who spoke with Dr. Vega in Infectious disease at [facility]. Dr. Hickman ordered lab work [...] Status:Closed by EMILEE SO on 03/21/24 Normal [facility] BMPon 03-08-2024 Anion gap [Moles/Vol] 14 mmol/L Normal - [facility] Comment on above: Performed By: #### 2 [id number] #### [facility] [address] [place] [address] Calcium [Mass/Vol] 9.4 mg/dL Normal 8.9-11.1 [facility] Comment on above: Performed By: #### 2 [id number] #### [facility] [address] [place] [address] Chloride [Moles/Vol] 104 mmol/L Normal 101-111 [facility] Comment on above: Performed By: #### 2 [id number] #### [facility] [address] [place] [address] CO2 [Moles/Vol] 24 mmol/L Normal 21-31 [facility] Comment on above: Performed By: #### 2 [id number] #### [facility] [address] [place] [address] Creatinine [Mass/Vol] 1.5 mg/dL High 0.5-1.3 [facility] Comment on above: Performed By: #### 2 386286 #### [facility] [address] [place] [address] Glucose [Mass/Vol] 109 mg/dL Normal 55-199 [facility] Comment on above: Performed By: #### 2 [id number] #### [facility] [address] [place] [address] Potassium [Moles/Vol] 4.2 mmol/L Normal 3.5-5.3 [facility] Comment on above: Performed By: #### 2 228574 #### [facility] [address] [place] [address] Sodium [Moles/Vol] 138 mmol/L Normal 135-145 [facility] Comment on above: Performed By: #### 2 276876 #### [facility] [address] [place] [address] Urea nitrogen [Mass/Vol] 26 mg/dL High 5-21 [facility] Comment on above: Performed By: #### 2 182066 #### [facility] [address] [place] [address] Urea nitrogen/Creatinine [Mass ratio] 17 No Units Normal 10-20 [facility] Comment on above: Performed By: #### 2 123760 #### [facility] [address] [place] [address] Consent for Treatmenton 02-08 Consent for Treatment [id number]#1.0 0TIFF Normal [facility] [id number] 03-08-2024 HbA1c (Bld) [Mass fraction] 6.5 % High <=5.9 [facility] Comment on above: Performed By: #### 7 [id number] #### [facility] [address] [place] [address] eGFRon 03-08-2024 eGFR 48 mL/min/1.73 m2 Low >=59 [facility] Comment on above: Order Comment: Order added by Discern Expert. Performed By: #### 1 [id number] #### [facility] [address] [place] [address] Ambulatory Visit Summaryon 0 03-07-2024 Ambulatory Visit [...] EDT With: Kristofer SCHUSTER, Haider Bee Where: [facility] Invalid Interpretation Code [address] [place] [address]- \.br \ Monday 9:15 AM EDT \.br\ With: Araceli BERMUDEZ MD\.br\ Where: [facility] Family Medicine Office/Clini c Noteon 03-07-2024 [...] Ordered: Basic Metabolic Panel Blood Culture Charcoal [facility] External Ambulatory Referral HgbA1c 2. Stage 3a chronic kidney disease (N18.31: Chronic kidney disease, stage 3a) - Will recheck today. - No concerns Ordered: Basic Metabolic Panel Blood Culture Charcoal [facility] External Ambulatory Referral HgbA1c 3. Stasis ulcer (I83.009: Varicose veins of unspecified lower extremity with ulcer of unspecified site) - Most likely the cause of number 1. - No ulcer today Ordered: Basic Metabolic Panel Blood Culture Charcoal [facility] External Ambulatory Referral HgbA1c 4. Morbid obesity with body mass index of 40.0-44.9 in adult (E66.01: Morbid (severe) obesity due to excess calories) - Diet and exercise advsied Ordered: Basic Metabolic Panel Blood Culture Charcoal Body Mass Index (BMI) documented 3008F Current tobacco non-user 1036F Depression Screening Negative 3352F [facility] External Ambulatory Referral HgbA1c Influenza immunization administered [...] Ordered: Basic Metabolic Panel Blood Culture Charcoal [facility] External Ambulatory Referral HgbA1c 6. BMI 40.0-44.9, [...] neuropathy Complex (more content not included)... Normal [facility] Comment on above: Result Comment: Elec tronically Signed By: Kristofer SCHUSTER, Haider Bee\.br\Date and Time Signed: 03/07/24 11:12 EDT Physician Referralon 024 Physician Referral [id number]#1. 00TIFF Macario [facility] CNOVon 02-29-2024 CNOV Office Visit (PAINMN ) DONG WHITMORE ([id number]) 1950 M Date Time Provider Department 02/29/24 1:30 PM HERBERTH ARAUJO PAINMN During your visit today, we recorded the following information about you: Temperature Pulse Blood pressure Weight 97.4 degrees 62/minute 138/73 122.5 kg Height 1.702 m Herberth Araujo MD, PhD 03/18/2024 7:05 PM Signed [facility] Pain Management Department New Patient Consultation Referring Physician: SELF Chief Complaint: Right third toe pain SUBJECTIVE: Dong Whitmore is a 73 year old male with a pertinent past medical history of diabetes who presents to [facility] Management [facility] for the evaluation of right third toe pain. 15-year history of right third toe pain. He notes that over this time the pain has become increasingly severe has caused him significant discomfort and suffering. He has been to many specialists in the [facility]-over the course of the past [...] 16th pe (more content not included)... Normal [facility] Reminderson 02-09-2024 Reminders - From: Vandana Hilton MA (EU - Recalljakob Bermudez) To: PREM Bermudez; Sent: 02/09/2024 13:50:30 EDT Show up: 06/09/2024 13:50:00 EDT Subject: renal us Reminder/Recall Addendum by Sharla Longoria on January 30, 2024 13:44:48 EDT From: Sharla Longoria (EU - Clinical) To: EU Kiki Bermudez; Sent: 01/30/2024 13:44:48 EDT Subject: FW: f/u after ESWL -Order for Renal US sent to FT Due Date/Time: 05/31/2024 13:44:00 EDT Caller Name: HAIM DONG A; Caller Number: H , B [phone] Addendum by Sharla Longoria on January 30, 2024 13:43:59 EDT Called pt and advised him of below message. Pt voiced understanding. Pt scheduled for 07/17/24 w/ TERRIE. Will send to [facility] recall for TERRIE. Addendum by Araceli BERMUDEZ MD on January 29, 2024 18:12:03 EDT From: Araceli BERMUDEZ MD To: - Clinical; Sent: 01/29/2024 18:12:03 EDT Subject: RE: f/u after ESWL -Order for Renal US sent to Caller Name: DONG WHITMORE Boom; Caller Number: H , B [phone] Please let the patient know that the [...] months with a kidney ultrasound repeated. Thanks [facility] Addendum by Erica Rossi on January 29, 2024 13:40:04 EDT From: Erica Rossi ( - Pending Results) To: Araceli BERMUDEZ MD; Sent: 01/29/2024 13:40:04 EDT Subject: FW: f/u after ESWL -Order for Renal US sent to Caller Name: DONG WHITMORE Boom; Caller Number: H , B [phone] Pt s/p R ESWL 01/03, to get [...] Date/Time: 01/25/2024 12:57:00 EDT Caller Name: DONG WHITMROE; Caller Number: H , B [phone] Addendum by Nan Hodges MA on January 19, 2024 12:33:50 EDT From: Nan Hodges MA (EU - Pending Results) To: EU - RUPERT/Cook Messages & Refills; Sent: 01/19/2024 12:33:50 EDT Subject: RE: f/u after ESWL -Order for Renal US sent to Due Date/Time: 01/25/2024 12:33:00 EDT Caller Name: HAIM DONG Nur; Caller Number: H , B [phone] Scheduled 01/24/24 @ [facility] From: Elena Robbins To: EU - Pending Results; Sent: 01/08/2024 09:17:33 EDT Subject: f/u after ESWL -Order for Renal US sent to Due Date/Time: 01/17/2024 09:17:00 EDT Caller Name: HAIM DONG A; Caller Number: H , B [phone] Pt is PO R ESWL 01/03 - he is to get renal US in 2 weeks and call for results if we don't contact him 1st - order sent to [facility] Sona 02-06-2024 CNPN Telephone (PAMAVN) DONG WHITMORE ([id number]) 1950 M Date Time Provider Department 02/06/24 FRANCOISE SINGLETARY During your visit today, we recorded the following information about you: Lela Hyatt RN 02/06/2024 10:46 AM Signed ----- Message from Francoise Singletary MD sent at 02/05/2024 3:12 PM EDT ----- Do you mind calling him and giving him the number to schedule at [facility] to discuss DRG? I'd suggest seeking an appointment with the following doctors who perform DRG implantation: Dr. Carlisle, Dr. Araujo, Dr. Dan, Dr. Moo Heard and Dr. Kamara may do DRG - I'm not sure. Thanks Lela! ----- Message ----- From: Livia Lester PA-C Sent: 02/05/2024 2:07 PM EDT To: Francoise Singletary MD No one on this side of [facility] that I know of does DRG so, we also send to [facility] I would just have Lela call the patient and tell him this is not something you do and tell him he needs to be seen a Main ----- Message ----- From: Francoise Singletary MD Sent: 02/05/2024 1:45 PM EDT To: Livia Lester PA-C Id! He was supposed to get referred for consideration of DRG - the only people I know who do DRG are at [facility]. How do we refer him there? [...] Status:Closed by LELA HYATT on 02/06/24 Normal [facility] CNOVon 02-05-2024 CNOV Office Visit (DENICE ) DONG WHITMORE ([id number]) 1950 M Date Time Provider Department 02/05/24 11:30 AM FRANCOISE SINGLETARY During your visit today, we recorded the following information about you: Pulse Blood pressure Weight 80/minute 131/70 124.7 kg Francoise Singletary MD 02/05/2024 3:14 PM Signed [facility] Pain Management Department Consultation Date: February [...] The patient has seen other pain providers. [facility] Neurology OV 02/01/22 Assessment and Plan 71 [...] year old (more content not included)... Normal [facility] Renalon 01-26-2024 US Renal Exam Date/Time: [...] Rosenbaum MD Transcribed by: GREGORIO Technologist: HW [facility] Consent for Treatmenton 01-07 Consent for Treatment [id number]#1.0 0TIFF Normal [facility] Consultation Noteon 01-22-20 Consultation Note [id number]#1.0 0TIFF Normal [facility] Consultation Note [id number]#1.0 0TIFF Normal [facility] IntraOperative Documentson 0 01-08-2024 IntraOperative Documents [id number]#1.0 0TIFF Normal [facility] Postoperative Documentson Postoperative Documents [id number]#1. 00TIFF [facility] Consent for Anesthesiaon Consent for Anesthesia [id number]#1. 00TIFF [facility] Discharge Instructionson Discharge Instructions [id number]#1. 00TIFF [facility] IntraOperative Documentson 0 01-05-2024 IntraOperative Documents [id number]. 00TIFF [facility] IntraOperative Documents [id number]#1. 00TIFF [facility] Main OR Intraoperative Recor don 01-05-2024 Main OR Intraoperative Record IntraOp Document Type FT Summary Primary Physician: Araceli BERMUDEZ MD Finalized Date/Time: 01/05/24 12:41:56 Pt. Name: DONG WHITMORE/Sex: 1950 Male Med Rec #: [id number] Physician: Araceli BERMUDEZ MD Financial #: [id number] Pt. Type: A Room/Bed: Admit/Disch: 01/04/24 06:41:12 [...] Loja Role Performed Anesthesiologist Surgeon - Primary Cable Engineer - Primary Content Writer Time In 01/04/24 09:07:00 01/04/24 09:07:00 01/04/24 [...] Yes Time Out Gerber HOWE, Augustin Given Participants LATRICIA Chávez MD, Araceli Treadwell, [...] and tissue Entry 1 Skin Integrity Intact, [place], Warm, and Skin (more content not included)... Normal [facility] Preoperative Documentson Preoperative Documents [id number]. 00TIFF Normal [facility] Progress Note-Physicianon Progress Note-Physician Patient: DONG WHITMORE [...] meets criteria ( To home ). Normal [facility] Comment on above: Result Comment: Elec tronically [...] Problems Vitamin D deficiency / SNOMED CT 08537782 / Confirmed Urgency of urination / SNOMED CT 097206784 / Confirmed Type 2 diabetes mellitus with hyperglycemia, without long-term current use of insulin / ICD-10-CM E11.65 / Confirmed Type 2 diabetes mellitus with peripheral vascular disease / SNOMED CT 811430894 / Confirmed linked DM with PVD per OP CDI policy. Type 2 diabetes mellitus with stage 3a chronic kidney disease and hypertension / SNOMED CT 397587910 / Confirmed linked DM with CKD and HTN per OP CDI policy. 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 Shoulder pain / SNOMED CT 25601755 / Confirmed Renal mass / SNOMED CT 740403759 / Confirmed Psoriasis / SNOMED CT 52097813 / Confirmed PVD (peripheral vascular disease) / SNOMED CT 8997435621 / Confirmed OA (osteoarthritis) / SNOMED CT 0426311565 / Confirmed ULISES (obstructive sleep apnea) / SNOMED CT 206959008 / Confirmed SANTANA (nonalcoholic steatohepatitis) / SNOMED CT 3864578118 / Confirmed Lumbar spondylosis / SNOMED CT 249196543 / Confirmed noted in 10/16/2023 Pain Management Consult Note page 3. added per OP CDI policy. Impotence / SNOMED CT 4003969967 / Confirmed History of kidney stones / SNOMED CT 4301166323 / Confirmed Hiatal hernia / SNOMED CT 703295622 / Confirmed GERD (gastroesophageal reflux disease) / SNOMED CT 331907860 / Confirmed Nerves / SNOMED CT 9040459355 / Confirmed Primary hypertension / SNOMED CT 15289129 / Confirmed Anticoagulated / SNOMED CT 504277224 / Confirmed Complex renal cyst / SNOMED CT 5754379373 / Confirmed Chronic painful diabetic neuropathy / SNOMED CT 9310867154 / Confirmed noted in 10/16/2023 Pain Management Consult Note page 3. added per OP CDI policy. Pain, foot, right, chronic / SNOMED CT 2035614824 / Confirmed noted in 10/16/2023 Pain Management Consult Note page 3. added per OP CDI policy. Chronic bilateral low back pain without sciatica / SNOMED CT 113535791 / Confirmed Stage 3a chronic kidney disease / SNOMED CT 6423020321 / Confirmed Excessive dietary caloric intake / SNOMED CT 198776959 / Confirmed Morbid obesity with body mass index of 40.0-44.9 in adult / SNOMED CT 1652309761 / Confirmed BPH with obstruction/lower urinary tract symptoms / SNOMED CT 9387022025 / Confirmed Anxiety / SNOMED CT 24517921 / Confirmed Allergic rhinitis / SNOMED CT 841096821 / Confirmed Acquired absence of right great toe / SNOMED CT 472429725 / Confirmed added per 07/24/2023 query response. Resolved: Neuropathy / SNOMED CT 7590693064 idiopathic chronic Resolved: Hyperlipidemia / SNOMED CT 72853693 Resolved: Depressed mood / SNOMED CT 008124012 Resolved: Amputation of toe of right foot / ICD-10-CM S98.131A Resolved: BPH - benign prostatic hyperplasia / SNOMED CT 2464061698 Resolved: Anxiety disorder / SNOMED CT 345664555 Canceled: Microscopic hematuria / SNOMED CT 101019377 Canceled: Kidney stone / IMO 58566 Canceled: Hypertension / SNOMED CT 1172586399 Canceled: HLD (hyperlipidemia) / SNOMED CT 72505463 Canceled: Glycosuria / SNOMED CT 95847761 Canceled: Diabetes / SNOMED CT 079478167 Histories Procedure history: TOE AMPUTATION on 11/16/2018 at 68 Years. Cysto, Lt retrogrades, Lt stent, Ureteral cath, Lt ESWL ([id number]) on 06/07/2018 at 67 Years. Comments: 06/21/2019 14:34 EDT - Vicente MEEHAN, Marilynn R Cysto, Lt retr (more content not included)... Normal [facility] Comment on above: Result Comment: Elec tronically [...] mGy = na DAP = na Normal [facility] Capillary Glucose POCon 12-08 Glucose [Mass/Vol] 133 mg/dL High 55-99 [facility] Comment on above: Performed By: #### 2 [id number] #### [facility] [address] [place] [address] Consent for Procedure/Surger yon 01-04-2024 Consent for Procedure/Surgery [id number]. 00TIFF Normal [facility] Consent for Treatmenton 12-08 Consent for Treatment [id number]#1.0 0TIFF [facility] Discharge Instructionson Discharge Instructions DONG WHITMORE [...] Araceli BERMUDEZ MD Where: [facility] Invalid Interpretation Code [address] [place] [address]- \.br \ Monday 9:30 AM EDT \.br\ With:\.br\ Where: [facility] Comment on above: Result Comment: Elec tronically Signed By: Rakel Barney RN\.br\Date and Time Signed: 01/04/24 10:37 EDT H&P Updateon 01-04-2024 H&P Update [id number]#1. 00TIFF Normal [facility] Inpatient Patient Summaryon 01-04-2024 Inpatient Patient Summary [address] [address] [facility] Clinical Discharge Instructions PERSON INFORMATION Name: DONG WHITMORE PHYSICIANS Admitting Physician: Araceli BERMUDEZ MD Attending Physician: Araceli BERMUDEZ MD PCP: Haider Hickman MD Discharge Diagnosis: Comment: PATIENT EDUCATION INFORMATION Instructions: Lithotripsy, Care After Medication Leaflets: Follow up: With: Address: When: Araceli BERMUDEZ [address], [address], [facility] [address] [place] [address] Business (1) Comments: Please call my office [...] for follow-up With: Address: When: [place] [address] [facility] [address] Business (1) Type Location Start Finish State URO Office Visit [facility] 03/13/2024 9:45 AM 03/13/2024 10:00 AM Confirmed FM Open [facility] 03/26/2024 2:15 PM 03/26/2024 2:30 PM Confirmed FM Medicare Wellness Subsequent [facility] 05/13/2024 9:30 AM 05/13/2024 10:30 AM Confirmed URO Office Visit [facility] 11/06/2024 10:30 AM 11/06/2024 10:45 AM Confirmed MEDICATION LIST New Medications [id number], [address], [place] [id number], [phone] acetaminophen-hydrocod one (acetaminophen-hydroco done 325 mg-5 mg [...] Tablets By Mouth every day. Comment: Normal [facility] Main OR PACU I Recordon 12-08 Main OR PACU I Record PACU Phase I Document Type FT Summary Primary Physician: Araceli BERMUDEZ MD Finalized Date/Time: 01/04/24 10:17:21 Pt. Name: DONG WHITMORE/Sex: 1950 Male Med Rec #: [id number] Physician: Araceli BERMUDEZ MD Financial #: [id number] Pt. Type: A Room/Bed: [place] [address] Admit/Disch: 01/04/24 06:41:12 - Institution: Case Times [...] By: Sangita Ross RN 01/04/24 10:17 Normal [facility] Main OR PACU II Recordon Main OR PACU II Record PACU Phase II Document Type FT Summary Primary Physician: Araceli BERMUDEZ MD Finalized Date/Time: 01/04/24 12:01:26 Pt. Name: DONG WHITMORE/Sex: 1950 Male Med Rec #: [id number] Physician: Araceli BERMUDEZ MD Financial #: [id number] Pt. Type: A Room/Bed: 01/07 Admit/Disch: 01/04/24 06:41:12 - 01/04/24 12:00:26 Institution: [...] Barney RN Document Signatures Signed By: Rakel Braney RN 01/04/24 12:01 [facility] Main OR Preoperative Recordo n 01-04-2024 Main OR Preoperative Record PreOp Document Type FT Summary Primary Physician: Araceli BERMUDEZ MD Finalized Date/Time: 01/04/24 09:57:43 Pt. Name: DONG WHITMORE /Sex: 1950 Male Med Rec #: [id number] Physician: Araceli BERMUDEZ MD Financial #: [id number] Pt. Type: A Room/Bed: [place] [address] Admit/Disch: 01/04/24 06:41:12 - Institution: Case Times [...] Signed By: Sim Ling 01/04/24 09:57 Normal [facility] Monitor Recordon 01-04-2024 Monitor Record [id number]#1. 00TIFF Normal [facility] Operative Reporton Operative Report Patient: DONG WHITMORE [...] placed per urethra and a well-lubricated 22 Eritrean is urethroscope with 30 degree lens then [...] pyelogram was then performed utilizing a 6 Eritrean open-ended ureteral catheter. The ureter is normal [...] keep the stone in view. Utilizing the [employer] Lithostar lithotripter, 1500 shocks were given up to 3.2 power level per protocol. Difficult to tell whether there was good stone fragmentation or not secondary to the patient's body habitus and the fact that this may be a uric acid calculus. He tolerates it well. Upon completion of the procedure the ureteral catheter was removed and he was transferred [facility] the [facility] and then back to PACU in satisfactory condition, stable vital signs. Plan to be for discharge home with plans for a follow-up kidney ultrasound within the next couple weeks. Prescription sent to pharmacy for doxycycline for antibiotic prophylaxis as well as 7 pills of [place] 5/325. She was in agreement with the plan. . Estimated Blood Loss: 0 ml. Complications: None. Anesthesia type: General. Normal [facility] Comment on above: Result Comment: Elec tronically Signed By: COOK Araceli SCHUSTER\.br\Date and Time Signed: 01/04/24 10:09 EDT Outpatient Surgery Discharge Instructionon 01-04-2024 Outpatient Surgery Discharge Instruction [address] [address] Patient Discharge Instructions PERSON INFORMATION Name: DONG [...] Follow up: With: Address: When: Araceli BERMUDEZ [address] [place], [place] [address]Iss[place], [address], [address] [address] Business (1) Comments: Please call [...] for follow-up With: Address: When: [place]O [place]QUE [address] [facility] [address] Business (1) Type Location Start Finish State URO Office Visit [facility] Whittaker 03/13/2024 9:45 AM 03/13/2024 10:00 AM Confirmed FM Open [facility] Jessie 03/26/2024 2:15 PM 03/26/2024 2:30 PM Confirmed FM Medicare Wellness Subsequent [facility] Jessie 05/13/2024 9:30 AM 05/13/2024 10:30 AM Confirmed URO Office Visit [facility] Whittaker 11/06/2024 10:30 AM 11/06/2024 10:45 AM Confirmed Pharmacy Information: You may receive a survey from [employer] asking you to rate your care experience. Your feedback is important and will help us understand what we do well and how we can improve the quality of care we provide to you, your loved ones and our community. It?s an honor to serve you. Thank you for choosing [facility] HERE ARE THE MEDICATION CHANGES THAT OCCURRED DURING YOUR HOSPITAL STAY New Medications [id number], [address], [place] [id number], [phone] acetaminophen-hydrocod one (acetaminophen-hydroco done 325 mg-5 mg [...] care p (more content not included)... Normal [facility] PT - Progress Noteson 2023 PT - Progress Notes [id number] 30 [id number]#1.0 0TIFF [facility] Patient Education - Texton 0 01-04-2024 [...] these instructions at home: Medicines ? Take qnpt-qum-ejzvxgw and prescription medicines only as told by [...] forming. ? (more content not included)... Normal [facility] Physician Referralon 024 Physician Referral [id number] 01 [id number]#1. 00TIFF Normal [facility] Physician Referral [id number] 01 [id number]#1. 00TIFF Normal [facility] BMPon 12-29-2023 Anion gap [Moles/Vol] 13 mmol/L Normal 6-16 [facility] Comment on above: Performed By: #### 2 485320, 8183689, 09547662, 13422390 #### [facility] [address] [place] [address] Calcium [Mass/Vol] 9.1 mg/dL Normal 8.9-11.1 [facility] Comment on above: Performed By: #### 2 667487, 1356691, 94789244, 29621846 #### [facility] [address] [place] [address] Chloride [Moles/Vol] 106 mmol/L Normal 101-111 [facility] Comment on above: Performed By: #### 2 158197, 7059341, 76922380, 02868552 #### [facility] [address] [place] [address] CO2 [Moles/Vol] 25 mmol/L Normal 21-31 [facility] Comment on above: Performed By: #### 2 815616, 7931754, 37224096, 55939306 #### [facility] [address] [place] [address] Creatinine [Mass/Vol] 1.2 mg/dL Normal 0.5-1.3 [facility] Comment on above: Performed By: #### 2 726696, 8806844, 17005104, 98790976 #### [facility] [address] [place] [address] Glucose [Mass/Vol] 145 mg/dL Normal 55-199 [facility] Comment on above: Performed By: #### 2 322107, 7045979, 61317885, 95926854 #### [facility] [address] [place] [address] Potassium [Moles/Vol] 3.8 mmol/L Normal 3.5-5.3 [facility] Comment on above: Performed By: #### 2 236788, 9811213, 65115324, 08725019 #### [facility] [address] [place] [address] Sodium [Moles/Vol] 140 mmol/L Normal 135-145 [facility] Comment on above: Performed By: #### 2 295050, 0697566, 75775685, 75442792 #### [facility] [address] [place] [address] Urea nitrogen [Mass/Vol] 25 mg/dL High 5-21 [facility] Comment on above: Performed By: #### 2 010052, 1905391, 93810099, 80374917 #### [facility] [address] [place] [address] Urea nitrogen/Creatinine [Mass ratio] 21 No Units High 10-20 [facility] Comment on above: Performed By: #### 2 128700, 8031837, 77034679, 88750302 #### [facility] [address] [place] [address] CBC w/ Auto Diffon 4 Basophils/100 WBC (Bld) 0.5 % Normal 0.0-2.0 [facility] Comment on above: Performed By: #### 2 132417, 1028065, 63481000, 36935041 #### [facility] [address] [place] [address] Basophils/Leukocytes Auto (Bld) [Pure # fraction] 0.0 E9/L Normal 0.0-0.2 [facility] Comment on above: Performed By: #### 2 146181, 9622434, 81709442, 83912567 #### [facility] [address] [place] [address] Eosinophils (Bld) [#/Vol] 0.3 E9/L Normal 0.0-0.5 [facility] Comment on above: Performed By: #### 2 623355, 8159831, 99986463, 35075790 #### [facility] [address] [place] [address] Eosinophils/100 WBC (Bld) 5.7 % Normal 0.0-8.0 [facility] Comment on above: Performed By: #### 2 807872, 5344553, 56021860, 17739203 #### [facility] [address] [place] [address] Erythrocyte distribution width (RBC) [Ratio] 14.6 % High 10.9-14.2 [facility] Comment on above: Performed By: #### 2 626079, 5049097, 32894690, 57234257 #### [facility] [address] [place] [address] Hematocrit (Bld) [Volume fraction] 38.3 % Normal 37.7-49.0 [facility] Comment on above: Performed By: #### 2 789327, 7270822, 15254638, 87224200 #### [facility] [address] [place] [address] Hemoglobin (Bld) [Mass/Vol] 12.8 g/dL Low 13.5-17.5 [facility] Comment on above: Performed By: #### 2 321000, 2542402, 91459314, 28588935 #### [facility] [address] [place] [address] Lymphocytes (Bld) [#/Vol] 0.9 E9/L Low 1.0-4.0 [facility] Comment on above: Performed By: #### 2 633432, 8318412, 53860806, 53993815 #### [facility] [address] [place] [address] Lymphocytes/100 WBC (Bld) 17.1 % Normal 14.0-50.0 [facility] Comment on above: Performed By: #### 2 499446, 0968118, 41727262, 31953227 #### [facility] [address] [place] [address] MCH (RBC) [Entitic mass] 28.1 pg Normal 27.0-34.0 [facility] Comment on above: Performed By: #### 2 369402, 6607986, 76879081, 13308061 #### [facility] [address] [place] [address] MCHC (RBC) [Mass/Vol] 33.4 g/dL Normal 31.4-36.0 [facility] Comment on above: Performed By: #### 2 941089, 5945045, 63017806, 90981614 #### [facility] [address] [place] [address] MCV (RBC) [Entitic vol] 84.1 fL Normal 80.0-100.0 [facility] Comment on above: Performed By: #### 2 085570, 5453229, 79556096, 12272949 #### [facility] [address] [place] [address] Monocytes (Bld) [#/Vol] 0.4 E9/L Normal 0.2-1.0 [facility] Comment on above: Performed By: #### 2 209532, 3871868, 27755459, 92588029 #### [facility] [address] [place] [address] Neutrophils (Bld) [#/Vol] 3.9 E9/L Normal 2.0-7.5 [facility] Comment on above: Performed By: #### 2 849677, 1965649, 69721697, 18381652 #### [facility] [address] [place] [address] Neutrophils/100 WBC (Bld) 69.6 % Normal 36.0-75.0 [facility] Comment on above: Performed By: #### 2 500983, 4883891, 03106898, 51837256 #### [facility] [address] [address] Platelet 178.0 E9/L Normal 150.0-500.0 [facility] Comment on above: Performed By: #### 2 478963, 1035836, 83731263, 53040483 #### [facility] [address] [address] Platelet mean volume (Bld) [Entitic vol] 8.4 fL Normal 6.4-10.8 [facility] Comment on above: Performed By: #### 2 753197, 0875905, 96734543, 81290906 #### [facility] [address] [place] [address] RBC (Bld) [#/Vol] 4.6 E12/L Normal 4.3-5.9 [facility] Comment on above: Performed By: #### 2 816914, 7220534, 41103796, 14074159 #### [facility] [address] [address] WBC corrected for nucl RBC Auto (Bld) [#/Vol] 5.5 E9/L Normal 4.0-11.0 [facility] Comment on above: Performed By: #### 2 209045, 8426390, 07494413, 76956458 #### [facility] [address] [place], [place] [address] Consent for Treatmenton 12-08 Consent for Treatment [id number]#1.0 0TIFF Normal [facility] PT & PTTon 12-29-2023 aPTT Coag (PPP) [Time] 35.7 second(s) Normal 25.1-36.5 [facility] Comment on above: Result Comment: Para meter [...] the same coagulation reagent and instrumentation as [facility]. Currently there are no coagulation studies available worldwide for children to 14 days, and no normal ranges. Heparin therapeutic range (represented by Anti-Factor Xa activity of 0.2 - 0.4 U/mL) corresponds to PTT of 56.6 - 109.0 sec. Performed By: #### 2 477165, 8514321, 06518563, 05034024 #### [facility] [address] [place] [address] INR Coag (PPP) [Relative time] 1.23 {INR} Invalid Interpretation Code [facility] Comment on above: Result Comment: INR results are specifically intended to assess patients stabilized on long-term Anticoagulation therapy suggested INR?s ?Less Intensive Anticoagulation? 2.0 ? 3.0 Conventional Range 3.0 ? 4.5 Performed By: #### 2 940788, 5734956, 65364194, 00025823 #### [facility] [address] [place] [address] PT Coag (PPP) [Time] 13.8 second(s) High 9.4-12.5 [facility] Comment on above: Result Comment: 15 d [...] the same coagulation reagent and instrumentation as [facility]. Currently there are no coagulation studies available worldwide for children to 14 days, and no normal ranges. Performed By: #### 2 030119, 3521081, 11108734, 13277626 #### [facility] [address] [place] [address] UA with Cult Rflxon 12-29-19 24 Color (U) Light-Yellow Normal Yellow [facility] Comment on above: Result Comment: Micr oscopic readings are only performed on those samples that meet specific criteria set forth by [facility]. Performed By: #### 4 [id number] ####[address] [place] [address] Glucose (U) [Mass/Vol] Negative Normal Negative [facility] Comment on above: Performed By: #### 4 [id number] ####[address] [address] Ketones Ql (U) Negative Normal Negative [facility] Comment on above: Performed By: #### 4 311558907 ####[facility] [address] [place] [address] UA Blood Negative Normal Negative [facility] Comment on above: Performed By: #### 4 563045801 ####[address] [place] [address] UA Clarity Clear Normal Clear [facility] Comment on above: Performed By: #### 4 315062062 ####[facility] [address] [place] [address] UA Leuk Est Negative Normal Negative [facility] Comment on above: Performed By: #### 4 626765916 ####[facility] [address] [place] [address] UA Nitrite Negative Normal Negative [facility] Comment on above: Performed By: #### 4 285478426 ####[address] [place] [address] UA pH 6.5 Invalid Interpretation Code 5.0-9.0 [facility] Comment on above: Performed By: #### 4 130020337 ####[facility] [address] [place] [address] UA Protein Trace Abnormal Negative [facility] Comment on above: Performed By: #### 4 177360025 ####[facility] [address] [place] [address] UA Spec Grav 1.021 Invalid Interpretation Code 1.005-1.030 [facility] Comment on above: Performed By: #### 4 269828879 ####[facility] [address] [place] [address] UA Urobilinogen Negative Normal Negative [facility] Comment on above: Performed By: #### 4 243404343 ####[facility] [address] [place] [address] Urobilinogen (U) [Mass/Vol] Negative Normal Negative [facility] Comment on above: Performed By: #### 4 290542021 ####[facility] [address] [place] [address] UA Spec Desc Clean Catch Normal [facility] Comment on above: Performed By: #### 4 [id number] ####[facility] [address] [place] [address] XR Chest 2 Viewson XR Chest 2 Views Exam Date/Time: 12/29/2023 09:35 EDT Reason for Exam: P.A.T. Report [facility] [phone] IMPRESSION: No acute infiltrates or effusions, no [...] mGy = na DAP = na Normal [facility] eGFRon 12-29-2023 eGFR 63 mL/min/1.73 m2 Normal >=59 [facility] Comment on above: Order Comment: Order added by Discern Expert. Performed By: #### 2 173008, 2423141, 39789523, 46405288 #### [facility] [address] [place] [address] Family Medicine Office/Clini c Noteon 12-28-2023 Family [...] (12/05/2016), ysto, (more content not included)... Normal [facility] Comment on above: Result Comment: Elec tronically Signed By: Kristofer SCHUSTER, Haider Bee\.br\Date and Time Signed: 12/28/23 09:51 EDT Physician Orderon 12-28-2023 Physician Order [id number]#1.0 0TIFF [facility] Ambulatory Visit Summaryon [...] Araceli BERMUDEZ MD Where: [facility] [place] Invalid Interpretation Code [address] [place] [address]- \.br \ Monday 9:30 AM EDT \.br\ With:\.br\ Where: [facility] CMPon 12-26-2023 Albumin [Mass/Vol] 4.2 g/dL Normal 3.3-5.0 [facility] Comment on above: Performed By: #### 2 801419, 0132731, 09758623, 0396568 ####[facility] [address] [place] [address] Albumin/Globulin (S) [Mass conc ratio] 1.6 Normal 1.1-2.2 [facility] Comment on above: Performed By: #### 2 266984, 6255907, 29017386, 4414659 ####[facility] [address] [place] [address] ALP [Catalytic activity/Vol] 67 Int._Unit/L Normal 21-98 [facility] Comment on above: Performed By: #### 2 872532, 4657748, 72917062, 0580642 ####[facility] [address] [place] [address] ALT No additional P-5'-P [Catalytic activity/Vol] 20 Int._Unit/L Normal 6-46 [facility] Comment on above: Performed By: #### 2 352485, 6399526, 76562378, 4045564 ####[facility] [address] [place] [address] Anion gap [Moles/Vol] 10 mmol/L Normal 6-16 [facility] Comment on above: Performed By: #### 2 918091, 7419442, 98982395, 4226541 ####[facility] [address] [place] [address] AST [Catalytic activity/Vol] 21 Int._Unit/L Normal 5-43 [facility] Comment on above: Performed By: #### 2 425855, 3463085, 60976314, 4918234 ####[facility] [address] [place] [address] Bilirubin [Mass/Vol] 0.6 mg/dL Normal 0.0-1.1 [facility] Comment on above: Performed By: #### 2 341379, 6056442, 38607602, 6030293 ####[facility] [address] [place] [address] Calcium [Mass/Vol] 9.3 mg/dL Normal 8.9-11.1 [facility] Comment on above: Performed By: #### 2 586638, 1286250, 92421446, 9321137 ####[facility] [address] [place] [address] Chloride [Moles/Vol] 105 mmol/L Normal 101-111 [facility] Comment on above: Performed By: #### 2 526631, 1873184, 54117111, 0634382 ####[facility] [address] [place] [address] CO2 [Moles/Vol] 27 mmol/L Normal 21-31 [facility] Comment on above: Performed By: #### 2 199641, 7566473, 15995286, 5787668 ####[facility] [address] [place] [address] Creatinine [Mass/Vol] 1.3 mg/dL Normal 0.5-1.3 [facility] Comment on above: Performed By: #### 2 215363, 8884103, 94221111, 5734473 ####[facility] [address] [place] [address] Globulin (S) [Mass/Vol] 2.6 g/dL Normal 1.4-4.0 [facility] Comment on above: Performed By: #### 2 049398, 4044587, 30259986, 5579639 ####[address] [place] [address] Glucose [Mass/Vol] 135 mg/dL Normal 55-199 [facility] Comment on above: Performed By: #### 2 387487, 8662974, 16572632, 6550902 ####[facility] [address] [place] [address] Potassium [Moles/Vol] 4.1 mmol/L Normal 3.5-5.3 [facility] Comment on above: Performed By: #### 2 334082, 5461038, 73870145, 8281893 ####[facility] [address] [place] [address] Protein [Mass/Vol] 6.8 g/dL Normal 6.0-7.8 [facility] Comment on above: Performed By: #### 2 253719, 1765067, 17575747, 5916105 ####[facility] [address] [place] [address] Sodium [Moles/Vol] 138 mmol/L Normal 135-145 [facility] Comment on above: Performed By: #### 2 000457, 1463236, 35433546, 1218835 ####[facility] [address] [place] [address] Urea nitrogen [Mass/Vol] 27 mg/dL High 5-21 [facility] Comment on above: Performed By: #### 2 882971, 2478058, 90868375, 0694101 ####[facility] [address] [place] [address] Urea nitrogen/Creatinine [Mass ratio] 21 No Units High 10-20 [facility] Comment on above: Performed By: #### 2 864852, 8348190, 69262217, 8236338 ####[facility] [address] [place] [address] Lipid Panelon 12-26-2023 Cholesterol [Mass/Vol] 118 mg/dL Low 120-200 [facility] Comment on above: Performed By: #### 2 203668, 9995042, 83447897, 9691653 ####[facility] [address] [place] [address] Cholesterol in HDL [Mass/Vol] 33 mg/dL Invalid Interpretation Code [facility] Comment on above: Result Comment: '>= 60 LOW RISK' '<= 40 HIGH RISK' Performed By: #### 2 737650, 4213952, 66022947, 0118483 ####[facility] [address] [place] [address] Cholesterol in LDL [Mass/Vol] 57 mg/dL Normal <=129 [facility] Comment on above: Performed By: #### 2 635291, 6070346, 06156137, 8618298 ####[facility] [address] [place] [address] Cholesterol in VLDL [Mass/Vol] 45 mg/dL High 7-40 [facility] Comment on above: Performed By: #### 2 273040, 4847893, 27773406, 4676185 ####[facility] [address] [place] [address] Triglyceride [Mass/Vol] 225 mg/dL High <=149 [facility] Comment on above: Performed By: #### 2 912571, 6840851, 67031230, 6371414 ####[facility] [address] [place] [address] U Microalbon 12-26-2023 Albumin DL <= 20 mg/L (U) [Mass/Vol] 5.8 mg/dL High 0.0-1.9 [facility] Comment on above: Performed By: #### 1 183465724, 18225285 ####[facility] [address] [place] [address] U Protein/Creat Ratioon 12-07 Protein/Creatinine (U) [Ratio] 20.90 mg/gm Cr Normal .00-200.00 [facility] Comment on above: Performed By: #### 1 796523578, 81055499 ####[facility] [address] [place] [address] U Creatinine 99.4 mg/dL Invalid Interpretation Code [facility] Comment on above: Performed By: #### 1 773397063, 38546323 ####[facility] [address] [place] [address] Ur Total Protein 20.8 mg/dL Invalid Interpretation Code [facility] Comment on above: Performed By: #### 1 [id number], 51431539 ####[facility] [address] [place] [address] Vit B12on 12-26-2023 Cobalamin (Vitamin B12) [Mass/Vol] 348 pg/mL Normal 50-1500 [facility] Comment on above: Performed By: #### 2 014063, 1779231, 08039520, 4255343 ####[facility] [address] [place] [address] eGFRon 12-26-2023 eGFR 57 mL/min/1.73 m2 Low >=59 [facility] Comment on above: Order Comment: Order added by Discern Expert. Performed By: #### 2 406786, 7579538, 88870886, 3610672 ####[facility] [address] [place] [address] Pre-Visit Planningon 024 Pre-Visit Planning - From: Ceci Yu To: Haider Hickman MD; Sent: 12/20/2023 09:56:36 EDT Subject: Pre-Visit Planning Due Date/Time: 12/20/2023 09:56:00 EDT Caller Name: DONG WHITMORE; Caller Number: H , B [phone] Id Dr. Hickman. During a pre-visit planning chart [...] feel free to contact me at extension [phone]. Thank you! 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 Normal [address] [place] [address] Consultation Noteon 12-08-19 Consultation Note [id number]#1.0 0TIFF Normal [facility] RAD - MISCon 11-14-2023 RAD - MISC [id number]#1.0 0TIFF Normal [facility] RAD - Ultrasound Reporton RAD - Ultrasound Report [id number]#1.0 0TIFF Normal [facility] RAD - Ultrasound Report [id number]#1.0 0TIFF Normal [facility] RAD - MISCon 10-30-2023 RAD - MISC [id number]#1.00 TIFF Normal [facility] RAD - MRI Reporton RAD - MRI Report [id number]#1.00 TIFF [facility] Screenson 10-20-2023 Screens [id number]#1. 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 8 oz (237 mL) of milk, lfrrqfr-aogmkrtxmneq-l airy milk, and calcium-fortifiedfruit juice. Calcium-fortified means [...] Spinach (cooked), rhubarb, beets, sweet potatoes, and Irish chard. ? Peanuts. ? Potato chips, norwegian fries, and baked potatoes with skin on. ? Nuts and nut products. ? Chocolate. ? If you regularly take a diuretic medicine, make sure to eat at least 1 or 2 servings of fruits or vegetables that are high in potassium each day. These include: ? Avocado. ? Banana. ? [place], prune, carrot, or tomato juice. ? Baked [...] fish oil, or vitamin B6. ? Take yedf-rku-ihyqtjp and prescription medicines only as told by your health care provider. These include supplements. What foods sh (more content not included)... [facility] Reminderson 10-18-2023 Reminders - From: Roya Álvarez To: PREM Bermudez; Sent: 10/18/2023 15:39:39 EST Show up: 08/18/2024 15:39:00 EST Subject: Renal US Due Date/Time: 09/17/2024 15:39:00 EST Pt needs scheduled for TERRIE prior to 1 year appointment. Being done at [facility]. order placed. Normal [facility] Urology Office/Clinic Noteon 10-18-2023 Urology Office/Clinic Note [...] with voice recognition artificial intelligence software, specifically [employer], [employer] and or [employer]. Substitutions may have occurred due to the [...] MD, URL [address] [address]- Additional Instructions: 1 year w/ renal US [...] benign pr (more content not included)... Normal [facility] Comment on above: Result Comment: Elec tronically [...] recent A1c level, as measured by his survey rodman, was 6.9%. Review of Systems PHQ Score [...] with voice recognition artificial intelligence software, specifically [employer], [employer] and or [employer]. Substitutions may have occurred due to the inherent limitations of voice recognition and artificial intelligence software. ATTESTATION: Documentation services were performed after patient or guardian consented to allow [employer] to record this visit. HEMANTH biomedical equipment specialist and provider reviewed before signing. HEMANTH: Sarah Rigor Follow-up No qualifying data available We [...] under fluo (more content not included)... Normal [facility] Comment on above: Result Comment: Elec tronically [...] SCHUSTER, Araceli Treadwell Where: [facility] Invalid Interpretation Code [address] [id number] \.br \ Monday 9:30 AM EDT \.br\ With:\.br\ Where: [facility] Consultation Noteon 09-18-20 Consultation Note [id number]#1.0 0TIFF Normal [facility] A1C with Estimated Average G naatlee 09-11-2023 HbA1c (Bld) [Mass fraction] 6.900 % High 4.3-5.6 % [facility] [employer] Other HbA1c (Bld) [Mass fraction] 151 mg/dL 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 Performed By: #### A 1C [facility] eA #### [facility] [address] [id number] [facility] HbA1c (Bld) [Mass fraction] 6.9 % High 4.3-5.6 [facility] Comment on above: Order Comment: Reaso n for Exam Type 2 diabetes mellitus with diabetic chronic kidney diseas Result Comment: Incr eased risk for diabetes: 5.7 - 6.4 diabetes: >6.4 glycemic control for adults with diabetes: <7.0 Performed By: #### A 1C [facility] eA #### [place] [id number] [facility] Glucose - FINGER STICKon Glucose [Mass/Vol] 138 mg/dL [employer] Other Glucose mean value [Mass/vol ume] in Blood Estimated from glycated hemoglobinOrdered By: Aldo Middleton on 09-11-2023 Average glucose Estimated from glycated hemoglobin (Bld) [Mass/Vol] 151 mg/dL [facility] Hemoglobin A1c percentageOrd ered By: Aldo Middleton on 09-11-2023 HbA1c (Bld) [Mass fraction] 6.9 % 4.3-5.6 [facility] Comment on above: Increased risk for d iabetes: 5.7 - 6.4diabetes: >6.4glycemic control for adults with diabetes: <7.0 Consultation Noteon 09-06-20 Consultation Note [id number] TIFF Normal [facility] Consultation Noteon 08-28-20 Consultation Note [id number]#1.00 TIFF Normal [facility] US UNI ankle/arm indiceson 1 10-24-2022 US UNI ankle/arm indices [facility] [address] [address] [place] [address] Ultrasound Report Signed Patient: Dong Whitmore MR#: [id number] : 1950 Acct:[id number] Age/Sex: 73 / M ADM Date: 08/24/23 Loc: [facility] Room: Type: [facility] Attending Dr: Eligio Soni MD Ordering [...] Eligio Soni MD08/24/2023 3:31 PM Dictation Location: [place] [address] Tech: Britney Sotelo Transcribed By: CIRO 08/24/23 153 Dictated By: Eligio Soni MD 08/24/23 153 Signed By: 08/24/231530 Normal [facility] US venous duplex LE RTon US venous duplex LE RT [place] [address] Ultrasound Report Signed Patient: Dong Whitmore MR#: [id number] : 1950 Acct:[id number] Age/Sex: 73 / M ADM Date: 08/24/23 Loc: [facility] Room: Type: [facility] Attending Dr: Eligio Soni MD Ordering [...] Eligio Soni MD08/24/2023 3:31 PM Dictation Location: [place] [address] Tech: Coby Gibson Transcribed By: CIRO 08/24/231530 Dictated By: Eligio Soni MD 08/24/231530 Signed By: 08/24/231530 [facility] Ambulatory Visit Summaryon 1 10-21-2022 Ambulatory Visit [...] EST With: Kristofer SCHUSTER, Haider Bee Where: [facility] Invalid Interpretation Code [address], [address] [place] [address]- \.br \ Monday 9:30 AM EDT \.br\ With:\.br\ Where: [facility] Office/Clini c Noteon 08-21-2023 [...] kidney d (more content not included)... Normal [facility] Comment on above: Result Comment: Elec tronically [...] oz glass (more content not included)... Normal [facility] Pre-Visit Planningon 023 Pre-Visit Planning - From: Ceci Yu To: Kristofer SCHUSTER, Haider Bee; Sent: 08/17/2023 10:44:28 EST Subject: Pre-Visit Planning Due Date/Time: 08/17/2023 10:44:00 EST Caller Name: DONG WHITMORE; Caller Number: H , B [phone] Id Dr. Hickman. During a pre-visit planning chart [...] feel free to contact me at extension [phone]. Thank you! Ceci Yu LPN Invalid Interpretation Code 272 [facility] Consultation Noteon 08-10-20 Consultation Note [id number]#1.0 0TIFF Normal [facility] Family Medicine Office/Clini c Noteon 07-26-2023 Family [...] continue to monitor along. Ordered: A1c POC 82876 Body Mass Index (BMI) documented 3008F Current [...] disease) - As above Ordered: A1c POC 46319 Body Mass Index (BMI) documented 3008F Current [...] stage 3a) - Stable Ordered: A1c POC 77099 Body Mass Index (BMI) documented 3008F Current [...] - No new issues Ordered: A1c POC 38911 Body Mass Index (BMI) documented 3008F Current [...] - BMI education given Ordered: A1c POC 75528 Body Mass Index (BMI) documented 3008F Current [...] last ye (more content not included)... Normal [facility] Comment on above: Result Comment: Elec tronically [...] numbers. This can be done either in Fijian (U.S.) or metric measurements. Note that charts and online BMI calculators are available to help you find your BMI quickly and easily without having to do these calculations yourself. To calculate your BMI in Fijian (U.S.) measurements: 1. Measure your weight in [...] for Disease Control and Prevention: www.cdc.gov ? [place] Heart Association: www.heart.org ? National Heart, Lung, and Blood [place]: www.nhlbi.nih.gov Summary ? Body mass index (BMI) is a number that is calculated from a person's weight and height. ? BMI may help estimate how much of a person's weight is composed of fat. BMI can help identify those who may be at higher risk for certain medical problems. ? BMI can be measured using Fijian measurements or metric measurements. ? BMI charts are used to identify whether you are underweight, normal weight, overweight, or obese. This information is not intended to replace advice given to you by your health care provider. Make sure you discuss any questions you have with your health care provider. Document Revised: 06/17/2020 Document Reviewed: 04/24/2020 [employer] Patient Education ? 2022 [employer]. [facility] Physician Referralon 023 Physician Referral [id number]. 00TIFF [facility] Pre-Visit Planningon 023 Pre-Visit Planning - From: Ceci Yu To: Kristofer SCHUSTER, Haider Bee; Sent: 07/24/2023 15:20:33 EDT Subject: Pre-Visit Planning Due Date/Time: 07/24/2023 15:20:00 EDT Caller Name: DONG WHITMORE; Caller Number: H , B [phone] Id Dr. Hickman. During a pre-visit planning chart [...] feel free to contact me at extension [phone]. Thank you! Ceci Yu LPN From: Kristofer SCHUSTER, Haider Bee To: Ceci Yu; Sent: 07/24/2023 16:58:10 EDT Subject: RE: Pre-Visit Planning Caller Name: DONG WHITMORE; Caller Number: H , B [phone] OK to add the first one. Thank you Normal [address] [place] [address] A1C HEMOGLOBINon 02-14-2023 HbA1c (Bld) [Mass fraction] 7.6 % [employer] Other Glucose - FINGER STICKon Glucose [Mass/Vol] 215 mg/dL [employer] Other HbA1c (Bld) [Mass fraction]o n 02-14-2023 A1C HEMOGLOBIN [employer] [facility] [employer] Other ECHOCARDIO M/2D COMPLETEon 0 12-30-2022 ECHOCARDIO M/2D COMPLETE Patient: DONG WHITMORE. Exam Date: 12/30/2022 : 1950 Gender:M Ordering : [facility] Admission #: [id number] Family : Order #: [id number] CLICK HERE TO VIEW EXAM ECHOCARDIOGRAM REPORT [...] Thibodeaux M.D. on 12/30/2022 at 18:49 Normal [facility] NM STRESS/REST MULTIon 12-29 NM STRESS/REST MULTI Patient: DONG WHITMORE Exam Date: 12/29/2022 : 1950 Gender:M Ordering : [facility] Admission #: [id number] Family : Order #: [id number] CLICK HERE TO VIEW EXAM RADIOLOGY REPORT [...] Morales M.D. on 12/30/2022 at 09:41 Normal [facility] US MAMI DOP LEG RTon [...] by: MORGAN ROJO Date: 2022-12-08 16:15 Normal [facility] TSHon 11-25-2022 TSH 2.370 uIU/mL Normal 0.358-3.[address] [facility] Comment on above: Performed By: #### T SH #### [facility] [address] [place] [address] Dr. Eli Jarvis BNPon 11-08-2022 Natriuretic peptide B (Bld) [Mass/Vol] 122.0 pg/mL Normal <=900.0 [facility] Comment on above: Performed By: #### C MP, BNP #### [facility] [address] [place] [address] Dr. Eli Jarvis CBC AUTO DIFFon 11-08-2022 BASO # 0.1 103/ul Normal 0.0-0.1 [facility] Comment on above: Performed By: #### C BC ####[facility] [address] [address]Dr. Eli Jarvis Basophils/100 WBC (Bld) 0.7 % Normal 0.2-2.0 [facility] Comment on above: Performed By: #### C BC ####[facility] [address] [address]DrSuzie Jarvis EO # 0.2 103/ul Normal 0.0-0.7 [facility] Comment on above: Performed By: #### C BC ####[facility] [address] [place] [address]DrSuzie Jarvis Eosinophils/100 WBC (Bld) 3.5 % Normal 0.9-7.0 [facility] Comment on above: Performed By: #### C BC ####[facility] [address] [place] [address]Dr. Eli Jarvis Erythrocyte distribution width (RBC) [Ratio] 13.8 % Normal 11.0-15.0 [facility] Comment on above: Performed By: #### C BC ####[facility] [address] [place] [address]Dr. Eli Jarvis Hematocrit (Bld) [Volume fraction] 42.0 % Normal 42.0-54.0 [facility] Comment on above: Performed By: #### C BC ####[facility] [address] [place], [place] [address]Dr. Eli Jarvis Hemoglobin (Bld) [Mass/Vol] 13.8 g/dL Critically low 14.0-18.0 [facility] Comment on above: Performed By: #### C BC ####[facility] [address] [place], [place] [address]Dr. Eli Matheus IG # 0.03 10e3/ul Normal 0.00-0.03 [facility] Comment on above: Performed By: #### C BC ####[facility] [address] [place], [place] [address]Dr. Eli Jarvis IG % 0.4 % Normal 0.0-0.5 [facility] Comment on above: Performed By: #### C BC ####[facility] [address] [place], [place] [address]Dr. Eli Jarvis LYMPH # 1.3 103/ul Normal 1.2-3.8 [facility] Comment on above: Performed By: #### C BC ####[facility] [address] [place], [place] [address]Dr. Sparklealine Jarvis Lymphocytes/100 WBC (Bld) 18.8 % Critically low 20.5-60.0 [facility] Comment on above: Performed By: #### C BC ####[facility] [address] [place], [place] [address]Dr. Sparklealine Jarvis MANUAL DIFF REQ NO Normal [facility] Comment on above: Performed By: #### C BC ####[facility] [address] [place] [address]Dr. Eli Jarvis MCH (RBC) [Entitic mass] 27.8 pg Normal 25.9-34.0 [facility] Comment on above: Performed By: #### C BC ####[facility] [address] [place] [address]Dr. Eli Jarvis MCHC (RBC) [Mass/Vol] 32.9 g/dL Normal 29.9-35.2 [facility] Comment on above: Performed By: #### C BC ####[facility] [address] [place], [place] [address]Dr. Eli Jarvis MCV (RBC) [Entitic vol] 84.7 fL Normal 80.0-94.0 [facility] Comment on above: Performed By: #### C BC ####[facility] [address] [place], [place] [address]Dr. Eli Matheus MONO # 0.6 103/ul Normal 0.3-0.8 [facility] Comment on above: Performed By: #### C BC ####[facility] [address] [place], [place] [address]Dr. Eli Matheus Monocytes/100 WBC (Bld) 8.5 % Normal 1.7-12.0 [facility] Comment on above: Performed By: #### C BC ####[facility] [address] [place], [place] [address]Dr. Eli Jarvis NEUT # 4.7 103/ul Normal 1.4-6.5 [facility] Comment on above: Performed By: #### C BC ####[facility] [address] [place], [place] [address]Dr. Eli Matheus Neutrophils/100 WBC (Bld) 68.1 % Normal 43.0-75.0 [facility] Comment on above: Performed By: #### C BC ####[facility] [address] [place], [place] [address]Dr. Eli Matheus Platelet mean volume (Bld) [Entitic vol] 10.3 fL Normal 9.5-13.5 [facility] Comment on above: Performed By: #### C BC ####[facility] [address] [place], [place] [address]Fb. Eli Jarvis PLT 189 103/ul Normal 150-450 [facility] Comment on above: Performed By: #### C BC ####[facility] [address] [place] [address]Dr. Eli Jarvis RBC 4.96 106/ul Normal 4.70-6.10 [facility] Comment on above: Performed By: #### C BC ####[facility] [address] [place] [address]Dr. Eli Jarvis WBC 7.0 103/ul Normal 4.0-11.0 [facility] Comment on above: Performed By: #### C BC ####[facility] [address] [place] [address]DrSuzei Jarvis PROF 14(COMP METB)on 023 Albumin [Mass/Vol] 3.6 g/dL Normal 3.4-5.0 [facility] Comment on above: Performed By: #### C MP, BNP #### [facility] [address] [place] [address] Dr. Eli Jarvis Albumin/Globulin [Mass ratio] 1.1 {ratio} Normal [facility] Comment on above: Performed By: #### C MP, BNP #### [facility] [address] [address] [address] Eli Jarvis ALP [Catalytic activity/Vol] 90 U/L Normal 46-116 [facility] Comment on above: Performed By: #### C MP, BNP #### [facility] [address] [address] [address] Eli Jarvis ALT [Catalytic activity/Vol] 42 U/L Normal 16-63 [facility] Comment on above: Performed By: #### C MP, BNP #### [facility] [address] [address] [address] Eli Jarvis Anion gap [Moles/Vol] 13.5 mmol/L Normal [facility] Comment on above: Performed By: #### C MP, BNP #### [facility] [address] [address] [address] Eli Jarvis AST [Catalytic activity/Vol] 26 U/L Normal 15-37 [facility] Comment on above: Performed By: #### C MP, BNP #### [facility] [address] [place] [address] Dr. Eli Jarvis Bilirubin [Mass/Vol] 0.4 mg/dL Normal 0.2-1.0 [facility] Comment on above: Performed By: #### C MP, BNP #### [facility] [address] [place] [address] Dr. Eli Jarvis Calcium [Mass/Vol] 9.3 mg/dL Normal 8.5-10.1 [facility] Comment on above: Performed By: #### C MP, BNP #### [facility] [address] [place] [address] Dr. Eli Jarvis Chloride [Moles/Vol] 104 mmol/L Normal 98-107 [facility] Comment on above: Performed By: #### C MP, BNP #### [facility] [address] [place] [address] Dr. Eli Jarvis CO2 [Moles/Vol] 25.7 mmol/L Normal 21.0-32.[address] [facility] Comment on above: Performed By: #### C MP, BNP #### [facility] [address] [place] [address] Dr. Eli Jarvis Creatinine [Mass/Vol] 1.32 mg/dL Critically high 0.70-1.30 [facility] Comment on above: Performed By: #### C MP, BNP #### [facility] [address] [place] [address] Dr. Eli Jarvis EGFR-AF CYPRIOT >60 Normal >=[address] [facility] Comment on above: Performed By: #### C MP, BNP #### [facility] [address] [place] [address] Dr. Eli Jarvis EGFR-NON AF CYPRIOT 53 mL/min/1.73m2 Critically low >=60 [facility] Comment on above: Performed By: #### C MP, BNP #### [facility] [address] [address] [address] Eli Jarvis Globulin (S) [Mass/Vol] 3.3 g/dL Normal [facility] Comment on above: Performed By: #### C MP, BNP #### [facility] [address] [address] [address] Eli Jarvis Glucose [Mass/Vol] 154 mg/dL Critically high 74-106 [facility] Comment on above: Performed By: #### C MP, BNP #### [facility] [address] [address] [address] Eli Jarvis Potassium [Moles/Vol] 4.2 mmol/L Normal 3.5-5.1 [facility] Comment on above: Performed By: #### C MP, BNP #### [facility] [address] [place] [address] Dr. Eli Jarvis Protein [Mass/Vol] 6.9 g/dL Normal 6.4-8.2 [facility] Comment on above: Performed By: #### C MP, BNP #### [facility] [address] [address] [address] Eli Jarvis Sodium [Moles/Vol] 139 mmol/L Normal 136-145 [facility] Comment on above: Performed By: #### C MP, BNP #### [facility] [address] [place] [address] Dr. Eli Jarvis Urea nitrogen [Mass/Vol] 23.0 mg/dL Critically high 7.0-18.0 [facility] Comment on above: Performed By: #### C MP, BNP #### [facility] [address] [place] [address] Dr. Eli Jarvis Urea nitrogen/Creatinine [Mass ratio] 17.4 mg/mg Normal [facility] Comment on above: Performed By: #### C MP, BNP #### [facility] [address] [place] [address] Dr. Eli Jarvis A1C HEMOGLOBINon 11-07-2022 HbA1c (Bld) [Mass fraction] 7.6 % [employer] Other Glucose - FINGER STICKon Glucose [Mass/Vol] 172 mg/dL [employer] Other HbA1c (Bld) [Mass fraction]o n 11-07-2022 A1C HEMOGLOBIN [employer] Other US KIDNEYSon 2022 US KIDNEYS EXAMINATION: [...] by: MORGAN ROJO Date: 2022 18:30 Normal [facility] A1C HEMOGLOBINon 07-27-2022 HbA1c (Bld) [Mass fraction] 7.2 % [employer] Other Glucose - FINGER STICKon Glucose [Mass/Vol] 160 mg/dL [employer] Other HbA1c (Bld) [Mass fraction]o n 07-27-2022 A1C HEMOGLOBIN [employer] Other A1C HEMOGLOBINon 04-21-2022 HbA1c (Bld) [Mass fraction] 7.6 % [employer] Other Glucose - FINGER STICKon Glucose [Mass/Vol] 184 mg/dL [employer] Other HbA1c (Bld) [Mass fraction]o n 04-21-2022 A1C HEMOGLOBIN [employer] Other [employer] Creat Ratio,Uon Albumin DL <= 20 mg/L (U) [Mass/Vol] 10.6631052 mg/dL High 0.0-1.8 mg/dL [employer] Other Albumin/Creatinine DL <= 20 mg/L (U) [Mass ratio] 70.387964 mg/g High 0.0-30.0 mg/g [employer] Other Creatinine (U) [Mass/Vol] 627.9390057 mg/dL [employer] Other CBC AUTO DIFFon 04-07-2022 BASO # 0.0 103/ul Normal 0.0-0.1 [facility] Comment on above: Performed By: #### C BC #### [facility] [address] [place] [address] Dr. Eli Jarvis Basophils/100 WBC (Bld) 0.6 % Normal 0.2-2.0 [facility] Comment on above: Performed By: #### C BC #### [facility] [address] [place] [address] Dr. Eli Jarvis EO # 0.2 103/ul Normal 0.0-0.7 [facility] Comment on above: Performed By: #### C BC #### [facility] [address] [place] [address] Dr. Eli Jarvis Eosinophils/100 WBC (Bld) 2.9 % Normal 0.9-7.0 [facility] Comment on above: Performed By: #### C BC #### [facility] [address] [place] [address] Dr. Eli Jarvis Erythrocyte distribution width (RBC) [Ratio] 13.8 % Normal 11.0-15.0 [facility] Comment on above: Performed By: #### C BC #### [facility] [address] [place] [address] Dr. Eli Jarvis Hematocrit (Bld) [Volume fraction] 40.7 % Critically low 42.0-54.0 [facility] Comment on above: Performed By: #### C BC #### [facility] [address] [address] [address] Eli Jarvis Hemoglobin (Bld) [Mass/Vol] 13.3 g/dL Critically low 14.0-18.0 [facility] Comment on above: Performed By: #### C BC #### [facility] [address] [address] [address] Eli Jarvis IG # 0.04 10e3/ul Critically high 0.00-0.03 [facility] Comment on above: Performed By: #### C BC #### [facility] [address] [address] [address] Eli Jarvis IG % 0.6 % Critically high 0.0-0.5 [facility] Comment on above: Performed By: #### C BC #### [facility] [address] [address] [address] Eli Jarvis LYMPH # 1.3 103/ul Normal 1.2-3.8 [facility] Comment on above: Performed By: #### C BC #### [facility] [address] [address] [address] Eli Jarvis Lymphocytes/100 WBC (Bld) 18.7 % Critically low 20.5-60.0 [facility] Comment on above: Performed By: #### C BC #### [facility] [address] [address] [address] Eli Jarvis MANUAL DIFF REQ NO Normal [facility] Comment on above: Performed By: #### C BC #### [facility] [address] [address] [address] Eli Jarvis MCH (RBC) [Entitic mass] 28.1 pg Normal 25.9-34.0 [facility] Comment on above: Performed By: #### C BC #### [facility] [address] [address] [address] Eli Jarvis MCHC (RBC) [Mass/Vol] 32.7 g/dL Normal 29.9-35.2 [facility] Comment on above: Performed By: #### C BC #### [facility] [address] [address] [address] Eli Jarvis MCV (RBC) [Entitic vol] 86.0 fL Normal 80.0-94.0 [facility] Comment on above: Performed By: #### C BC #### [facility] [address] [address] [address] Eli Jarvis MONO # 0.4 103/ul Normal 0.3-0.8 [facility] Comment on above: Performed By: #### C BC #### [facility] [address] [address] [address] Eli Jarvis Monocytes/100 WBC (Bld) 6.2 % Normal 1.7-12.0 [facility] Comment on above: Performed By: #### C BC #### [facility] [address] [place] [address] Dr. Eli Jarvis NEUT # 4.9 103/ul Normal 1.4-6.5 [facility] Comment on above: Performed By: #### C BC #### [facility] [address] [place] [address] Dr. Eli Jarvis Neutrophils/100 WBC (Bld) 71.0 % Normal 43.0-75.0 [facility] Comment on above: Performed By: #### C BC #### [facility] [address] [place] [address] Dr. Eli Jarvis Platelet mean volume (Bld) [Entitic vol] 9.9 fL Normal 9.5-13.5 [facility] Comment on above: Performed By: #### C BC #### [facility] [address] [place] [address] Dr. Eli Jarvis PLT 184 103/ul Normal 150-450 [facility] Comment on above: Performed By: #### C BC #### [facility] [address] [place] [address] Dr. Eli Jarvis RBC 4.73 106/ul Normal 4.70-6.10 [facility] Comment on above: Performed By: #### C BC #### [facility] [address] [place], [place] [address] Dr. Eli Jarvis WBC 6.9 103/ul Normal 4.0-11.0 [facility] Comment on above: Performed By: #### C BC #### [facility] [address] [place], [place] [address] Dr. Eli Jarvis LIPID PROFILEon 04-07-2022 CHOL-HDL RATIO NORM SEE BELOW Normal [facility] Comment on above: Result Comment: 3.3 - 4.4 LOW RISK 4.4 - 7.1 AVERAGE RISK 7.1 - 11.0 MODERATE RISK >11.0 HIGH RISK Performed By: #### C MP, LIPID ####[facility] [address] [place] [id number]. Eli Jarvis Cholesterol [Mass/Vol] 127 mg/dL Normal <=200 [facility] Comment on above: Performed By: #### C MP, LIPID ####[facility] [address] [place] [id number]. Eli Jarvis Cholesterol in HDL [Mass/Vol] 36 mg/dL Critically low 40-60 [facility] Comment on above: Performed By: #### C MP, LIPID ####[facility] [address] [place] [id number]. Eli Jarvis Cholesterol in LDL [Mass/Vol] 58.4 mg/dL Normal [facility] Comment on above: Performed By: #### C MP, LIPID ####[facility] [address] [place] [id number]. Eli Jarvis Cholesterol.total/Ch olesterol in HDL [Mass ratio] 3.5 {ratio} Normal [facility] Comment on above: Performed By: #### C MP, LIPID ####[facility] [address] [place], [place] [address]Ea. Eli Jarvis HDL NORMAL > or = 60 mg/dl - LO W CARDIOVASCULAR RISK <40 mg/dl - HIGH CARDIOVASCULAR RISK Normal [facility] Comment on above: Performed By: #### C MP, LIPID ####[facility] [address] [place] [id number]. Eli Jarvis LDL CALC NORMAL SEE BELOW Normal [facility] Comment on above: Result Comment: <100 mg/dl OPTIMAL 100 - 129 mg/dl NEAR OR ABOVE OPTIMAL 130 - 159 mg/dl BORDERLINE HIGH 160 - 189 mg/dl HIGH >190 mg/dl VERY HIGH Performed By: #### C MP, LIPID ####[facility] [address] [place] [id number]. Eli Jarvis Triglyceride [Mass/Vol] 163 mg/dL Critically high <=150 [facility] Comment on above: Performed By: #### C MP, LIPID ####[facility] [address] [place] [address]Dr. Eli Jarvis VLDL CALC 32.6 mg/dL Normal [facility] Comment on above: Performed By: #### C MP, LIPID ####[facility] [address] [place] [address]Dr. Eli Jarvis PROF 14(COMP METB)on 022 Albumin [Mass/Vol] 3.8 g/dL Normal 3.4-5.0 [facility] Comment on above: Performed By: #### C MP, LIPID ####[facility] [address] [place] [address]Dr. Eli Jarvis Albumin/Globulin [Mass ratio] 1.1 {ratio} Normal [facility] Comment on above: Performed By: #### C MP, LIPID ####[facility] [address] [place] [address]Dr. Eli Jarvis ALP [Catalytic activity/Vol] 89 U/L Normal 46-116 [facility] Comment on above: Performed By: #### C MP, LIPID ####[facility] [address] [place] [address]Dr. Eli Jarvis ALT [Catalytic activity/Vol] 43 U/L Normal 16-63 [facility] Comment on above: Performed By: #### C MP, LIPID ####[facility] [address] [place] [address]Dr. Eli Jarvis Anion gap [Moles/Vol] 10.7 mmol/L Normal [facility] Comment on above: Performed By: #### C MP, LIPID ####[facility] [address] [place] [address]Dr. Eli Jarvis AST [Catalytic activity/Vol] 24 U/L Normal 15-37 [facility] Comment on above: Performed By: #### C MP, LIPID ####[facility] [address] [place] [address]Dr. Eli Jarvis Bilirubin [Mass/Vol] 0.2 mg/dL Normal 0.2-1.0 [facility] Comment on above: Performed By: #### C MP, LIPID ####[facility] [address] [place] [address]Dr. Eli Jarvis Calcium [Mass/Vol] 9.1 mg/dL Normal 8.5-10.1 [facility] Comment on above: Performed By: #### C MP, LIPID ####[facility] [address] [place], [place] [address]Dr. Eli Jarvis Chloride [Moles/Vol] 104 mmol/L Normal 98-107 [facility] Comment on above: Performed By: #### C MP, LIPID ####[facility] [address] [place], [place] [address]Dr. Eli Jarvis CO2 [Moles/Vol] 27.5 mmol/L Normal 21.0-32.0 [facility] Comment on above: Performed By: #### C MP, LIPID ####[facility] [address] [place], [place] [address]Dr. Eli Jarvis Creatinine [Mass/Vol] 1.15 mg/dL Normal 0.70-1.30 [facility] Comment on above: Performed By: #### C MP, LIPID ####[facility] [address] [place] [address]Dr. Eli Jarvis EGFR-AF CYPRIOT >60 Normal >=[address] [facility] Comment on above: Performed By: #### C MP, LIPID ####[facility] [address] [place] [address]Dr. Eli Jarvis EGFR-NON AF CYPRIOT >60 Normal >=60 [facility] Comment on above: Performed By: #### C MP, LIPID ####[facility] [address] [place] [id number]. Eli Jarvis Globulin (S) [Mass/Vol] 3.4 g/dL Normal [facility] Comment on above: Performed By: #### C MP, LIPID ####[facility] [address] [place] [phone]. Eli Jarvis Glucose [Mass/Vol] 157 mg/dL Critically high 74-106 [facility] Comment on above: Performed By: #### C MP, LIPID ####[facility] [address] [place] [address]Dr. Eli Jarvis Potassium [Moles/Vol] 4.2 mmol/L Normal 3.5-5.1 [facility] Comment on above: Performed By: #### C MP, LIPID ####[facility] [address] [place] [address]Dr. Eli Jarvis Protein [Mass/Vol] 7.2 g/dL Normal 6.4-8.2 [facility] Comment on above: Performed By: #### C MP, LIPID ####[facility] [address] [place], [place] [address]Dr. Eli Jarvis Sodium [Moles/Vol] 138 mmol/L Normal 136-145 [facility] Comment on above: Performed By: #### C MP, LIPID ####[facility] [address] [place] [id number]. Eli Jarvis Urea nitrogen [Mass/Vol] 26.0 mg/dL Critically high 7.0-18.0 [facility] Comment on above: Performed By: #### C MP, LIPID ####[facility] [address] [place] [id number]. Eli Jarvis Urea nitrogen/Creatinine [Mass ratio] 22.6 mg/mg Normal [facility] Comment on above: Performed By: #### C MP, LIPID ####[facility] [address] [place] [id number]. Eli Jarvis A1C HEMOGLOBINon 10-21-2021 HbA1c (Bld) [Mass fraction] 6.6 % [employer] Other Glucose - FINGER STICKon Glucose [Mass/Vol] 169 mg/dL [place] [employer] Other HbA1c (Bld) [Mass fraction]o n 10-21-2021 A1C HEMOGLOBIN [place] [facility] [employer] Other Comprehensive Metabolic Pane deann 07-29-2021 Albumin [Mass/Vol] 3.9 g/dL 3.2-5.5 [place] [employer] Other Albumin/Globulin [Mass ratio] 1.6 {ratio} [employer] Other ALP [Catalytic activity/Vol] 63 U/L 32-92 [employer] Other ALT [Catalytic activity/Vol] 32 U/L 10-60 [employer] Other AST [Catalytic activity/Vol] 32 U/L 10-42 [employer] Other Bilirubin [Mass/Vol] 0.5 mg/dL 0.3-1.2 [facility] [employer] Other Calcium [Mass/Vol] 9.7 mg/dL 8.2-10.2 [employer] Other Chloride [Moles/Vol] 105 mmol/L 95-114 [facility] [employer] Other CO2 [Moles/Vol] 22.7 mmol/L 22.0-30.0 [facility] [employer] Other Creatinine [Mass/Vol] 1.28 mg/dL 0.64-1.27 [employer] Other Glucose [Mass/Vol] 111 mg/dL 70-100 [employer] Other Potassium [Moles/Vol] 4.1 mmol/L 3.5-5.1 [employer] Other Protein [Mass/Vol] 6.3 g/dL 6.1-7.9 [employer] Other Sodium [Moles/Vol] 139 mmol/L 136-146 [employer] Other Urea nitrogen [Mass/Vol] 23 mg/dL 9- [employer] Other Comprehensive Metabolic Panel 55 [employer] Other Comprehensive Metabolic Panel > 60 [employer] Other Comprehensive Metabolic Panel 2.4 [employer] Other Hepatitis Acute Panelon 10-2 Hepatitis Acute Panel Negative Negative [employer] Other Hepatitis Acute Panel <0.1 0.0-0.9 [employer] Other Vital Signs Date Time Vital Sign Value Performing Clinician Facility 10-17-2024 10:14-0500 Body height 165.1 cm Bassam Aguilar DPM Work Phone: [facility] 10-17-2024 10:14-0500 Body mass index (BMI) [Ratio] 45.93 kg/m2 Bassam Aguilar DPM Work Phone: [facility] 10-17-2024 10:14-0500 Body weight 125.19 kg Bassam Aguilar DPM Work Phone: [facility] 10-17-2024 10:14-0500 Respiratory rate 16 /min Bassam Aguilar DPM Work Phone: [facility] 08-29-2024 09:27-0500 Body mass index (BMI) [Ratio] 45.93 kg/m2 Matthew May DO Work Phone: [facility] 08-29-2024 09:27-0500 Body weight 125.19 kg Matthew May DO Work Phone: [facility] 08-29-2024 09:27-0500 Diastolic blood pressure 76 mm[Hg] Matthew May DO Work Phone: [facility] 08-29-2024 09:27-0500 Heart rate 64 /min Matthew May DO Work Phone: [facility] 08-29-2024 09:27-0500 SaO2% (BldA) [Mass fraction] 95 % Matthew May DO Work Phone: [facility] 08-29-2024 09:27-0500 Systolic blood pressure 134 mm[Hg] Jamisonjeanine May DO Work Phone: [facility] 08-14-2024 09:59-0500 Body mass index (BMI) [Ratio] 40.46 kg/m2 Chiqui Robles MD Work Phone: [facility] 08-14-2024 09:59-0500 Body weight 117.2 kg Chiqui Robles MD Work Phone: [facility] 08-14-2024 09:59-0500 Diastolic blood pressure 69 mm[Hg] Chiqui Robles MD Work Phone: [facility] 08-14-2024 09:59-0500 Heart rate 59 /min Chiqui Robles MD Work Phone: [facility] 08-14-2024 09:59-0500 Respiratory rate 16 /min Chiqui Robles MD Work Phone: [facility] 08-14-2024 09:59-0500 SaO2% (BldA) [Mass fraction] 97 % Chiqui Robles MD Work Phone: [facility] 08-14-2024 09:59-0500 Systolic blood pressure 137 mm[Hg] Chiqui Robles MD Work Phone: [facility] 08-08-2024 09:32-0400 Body height 165.1 cm Bassam Aguilar DPM Work Phone: [facility] 08-08-2024 09:32-0400 Body mass index (BMI) [Ratio] 42.43 kg/m2 Bassam PERKINSM Work Phone: [facility] 08-08-2024 09:32-0400 Body weight 115.67 kg Bassamomi Aguilar DPM Work Phone: [facility] 08-08-2024 09:32-0400 Diastolic blood pressure 79 mm[Hg] Bassam Aguilar DPM Work Phone: [facility] 08-08-2024 09:32-0400 Heart rate 82 /min Bassam Aguilar DPM Work Phone: [facility] 08-08-2024 09:32-0400 Systolic blood pressure 128 mm[Hg] Bassam Aguilar DPM Work Phone: [facility] 08-06-2024 09:53-0400 Body height 165.1 cm Khai Heard DO Work Phone: [facility] 08-06-2024 09:53-0400 Body mass index (BMI) [Ratio] 42.43 kg/m2 Khai Heard DO Work Phone: [facility] 08-06-2024 09:53-0400 Body weight 115.67 kg Khai Heard DO Work Phone: [facility] 07-31-2024 10:20-0400 Body height 165.1 cm Shyam Higginsce DPM FACFAS Work Phone: [facility] 07-31-2024 10:20-0400 Body mass index (BMI) [Ratio] 42.43 kg/m2 Shyam Dolce DPM [employer] Work Phone: [facility] 07-31-2024 10:20-0400 Body weight 115.67 kg Shyam Dolce DPM [employer] Work Phone: [facility] 07-31-2024 10:20-0400 Diastolic blood pressure 79 mm[Hg] Shyam Dolce DPM [employer]AC[employer] Work Phone: [facility] 07-31-2024 10:20-0400 Heart rate 68 /min Shyam Dolce DPM [employer]AC[employer] Work Phone: [facility] 07-31-2024 10:20-0400 Systolic blood pressure 128 mm[Hg] Shyam Higginsce DPM [employer]AC[employer] Work Phone: [facility] 07-24-2024 10:12-0400 Body height 165.1 cm Shyam Higginsce DPM [employer]AC[employer] Work Phone: [facility] 07-24-2024 10:12-0400 Body mass index (BMI) [Ratio] 42.43 kg/m2 Shyam Dolce DPM [employer] Work Phone: [facility] 07-24-2024 10:12-0400 Body weight 115.67 kg Shyam Dolce DPM [employer] Work Phone: [facility] 07-24-2024 10:12-0400 Diastolic blood pressure 78 mm[Hg] Shyma Dolce DPM [employer] Work Phone: [facility] 07-24-2024 10:12-0400 Heart rate 83 /min Shyam Dolce DPM [employer] Work Phone: [facility] 07-24-2024 10:12-0400 Systolic blood pressure 131 mm[Hg] Shyam Higginsce DPM [employer] Work Phone: [facility] 07-23-2024 09:37-0400 Body height 165.1 cm Arlen Sanchez Pharmaxis Work Phone: [facility] 07-23-2024 09:37-0400 Body mass index (BMI) [Ratio] 42.43 kg/m2 Arlen LealShopYourWorld Work Phone: [facility] 07-23-2024 09:37-0400 Body weight 115.67 kg Arlen Sanchez Pharmaxis Work Phone: [facility] 07-03-2024 10:07-0400 Body height 165.1 cm Shyam Dolce DPM FACFAS Work Phone: [facility] 07-03-2024 10:07-0400 Body mass index (BMI) [Ratio] 42.43 kg/m2 Shyam Dolce DPM [employer]AC[employer] Work Phone: [facility] 07-03-2024 10:07-0400 Body weight 115.67 kg Shyam Dolce DPM [employer] Work Phone: [facility] 07-03-2024 10:07-0400 Diastolic blood pressure 78 mm[Hg] Shyam Dolce DPM [employer]AC[employer] Work Phone: [facility] 07-03-2024 10:07-0400 Heart rate 85 /min Shyam Dolce DPM [employer] Work Phone: [facility] 07-03-2024 10:07-0400 Systolic blood pressure 132 mm[Hg] Shyam Dolce DPM [employer]AC[employer] Work Phone: [facility] 06-25-2024 14:46-0400 Body height 165.1 cm Kajal Dolce DPM [employer] Work Phone: [facility] 06-25-2024 14:46-0400 Body mass index (BMI) [Ratio] 42.43 kg/m2 Kajal Dolce DPM [employer] Work Phone: [facility] 06-25-2024 14:46-0400 Body weight 115.67 kg Kajal Dolce DPM [employer]AC[employer] Work Phone: [facility] 06-25-2024 14:46-0400 Diastolic blood pressure 75 mm[Hg] Kajal Dolce DPM FAC[employer]AS Work Phone: [facility] 06-25-2024 14:46-0400 Heart rate 72 /min Kajal Dolce DPM [employer]AC[employer] Work Phone: [facility] 06-25-2024 14:46-0400 Systolic blood pressure 126 mm[Hg] Kajal Dolce DPM FACFAS Work Phone: [facility] 06-19-2024 08:52-0400 Body height 165.1 cm Shyam Dolce DPM FAC[employer]AS Work Phone: [facility] 06-19-2024 08:52-0400 Body mass index (BMI) [Ratio] 42.43 kg/m2 Shyam Dolce DPM [employer]AC[employer] Work Phone: [facility] 06-19-2024 08:52-0400 Body weight 115.67 kg Shyam Dolce DPM [employer] Work Phone: [facility] 06-19-2024 08:52-0400 Diastolic blood pressure 77 mm[Hg] Shyam Cam DPM [employer] Work Phone: [facility] 06-19-2024 08:52-0400 Heart rate 73 /min Shyam Cam DPM [employer] Work Phone: [facility] 06-19-2024 08:52-0400 Systolic blood pressure 125 mm[Hg] Shyam Cma DPM FAC[employer]AS Work Phone: [facility] 06-18-2024 10:17-0400 Body height 165.1 cm Bassam Aguilar DPM Work Phone: [facility] 06-18-2024 10:17-0400 Body mass index (BMI) [Ratio] 42.43 kg/m2 Bassam Aguilar DPM Work Phone: [facility] 06-18-2024 10:17-0400 Body weight 115.67 kg Bassam Aguilar DPM Work Phone: [facility] 06-18-2024 10:17-0400 Diastolic blood pressure 75 mm[Hg] Bassam Aguilar DPM Work Phone: [facility] 06-18-2024 10:17-0400 Heart rate 83 /min Bassam Augilar DPM Work Phone: [facility] 06-18-2024 10:17-0400 Systolic blood pressure 125 mm[Hg] Bassam Aguilar DPM Work Phone: [facility] 04-24-2024 08:50-0400 Body height 170.2 cm Chiqui Robles MD Work Phone: [facility] 04-24-2024 08:50-0400 Body mass index (BMI) [Ratio] 42.28 kg/m2 Chiqui Robles MD Work Phone: [facility] 04-24-2024 08:50-0400 Body weight 122.47 kg Chiqui Robles MD Work Phone: [facility] 04-24-2024 08:50-0400 Diastolic blood pressure 89 mm[Hg] Chiqui Robles MD Work Phone: [facility] 04-24-2024 08:50-0400 Heart rate 61 /min Chiqui Robles MD Work Phone: [facility] 04-24-2024 08:50-0400 SaO2% (BldA) [Mass fraction] 95 % Chiqui Robles MD Work Phone: [facility] 04-24-2024 08:50-0400 Systolic blood pressure 122 mm[Hg] Chiqui Robles MD Work Phone: [facility] 02-29-2024 13:41-0400 Body height 170.2 cm Herberth Araujo MD, PhD Work Phone: [facility] 02-29-2024 13:41-0400 Body mass index (BMI) [Ratio] 42.29 kg/m2 Herberth Araujo MD, PhD Work Phone: [facility] 02-29-2024 13:41-0400 Body temperature 97.39 [degF] Herberth Araujo MD, PhD Work Phone: [facility] 02-29-2024 13:41-0400 Body weight 122.47 kg Herberth Araujo MD, PhD Work Phone: [facility] 02-29-2024 13:41-0400 Diastolic blood pressure 73 mm[Hg] Herberth Araujo MD, PhD Work Phone: [facility] 02-29-2024 13:41-0400 Heart rate 62 /min Herberth Araujo MD, PhD Work Phone: [facility] 02-29-2024 13:41-0400 SaO2% (BldA) [Mass fraction] 94 % Herberth Araujo MD, PhD Work Phone: [facility] 02-29-2024 13:41-0400 Systolic blood pressure 138 mm[Hg] Herberth Araujo MD, PhD Work Phone: [facility] 02-05-2024 12:17-0400 Body weight 124.74 kg Francoise Singletary MD Work Phone: [facility] 02-05-2024 12:17-0400 Diastolic blood pressure 70 mm[Hg] Francoise Singletary MD Work Phone: [facility] 02-05-2024 12:17-0400 Heart rate 80 /min Francoise Singletary MD Work Phone: [facility] 02-05-2024 12:17-0400 Systolic blood pressure 131 mm[Hg] Francoise Singletary MD Work Phone: [facility] 09-11-2023 11:00-0500 Body height 167.64 cm Tondra Mapus Other [facility] 09-11-2023 11:00-0500 Body mass index (BMI) [Ratio] 44.91 kg/m2 Tondra Mapus Other [employer] Other 09-11-2023 11:00-0500 Body weight 126.24 kg Tondra Mapus Other [employer] Other 09-11-2023 11:00-0500 Body weight 126.23 kg MD Scarlet Johnson Work Phone: [facility] 09-11-2023 11:00-0500 Diastolic blood pressure 82 mm[Hg] Tondra Mapus Other [facility] 09-11-2023 11:00-0500 Respiratory rate 18 /min Tondra Mapus Other [employer] Other 09-11-2023 11:00-0500 SaO2% (BldA) [Mass fraction] 99 % Tondra Mapus Other [employer] Other 09-11-2023 11:00-0500 Systolic blood pressure 153 mm[Hg] Aldo Middleton Other [facility] 08-24-2023 13:45-0500 Body height 167.64 cm Eligio Soni Other [facility] 08-24-2023 13:45-0500 Body mass index (BMI) [Ratio] 44.22 kg/m2 Eligio Soni Other [employer] Other 08-24-2023 13:45-0500 Body temperature 97.4 [degF] Eligio Soni Other [employer] Other 08-24-2023 13:45-0500 Body weight 124.29 kg Eligio Soni Other [employer] Other 08-24-2023 13:45-0500 Body weight 124.28 kg MD Scarlet Johnson Work Phone: [facility] 08-24-2023 13:45-0500 Diastolic blood pressure 60 mm[Hg] Eligio Soni Other [facility] 08-24-2023 13:45-0500 SaO2% (BldA) [Mass fraction] 97 % Eligio Soni Other [employer] Other 08-24-2023 13:45-0500 Systolic blood pressure 130 mm[Hg] Eligio Soni Other [facility] 03-07-2023 10:00-0400 Body height 167.64 cm Terry Kelley Other [employer] Other 03-07-2023 10:00-0400 Body mass index (BMI) [Ratio] 43.61 kg/m2 Terry Kelley Other [employer] Other 03-07-2023 10:00-0400 Body weight 122.56 kg Terry Kelley Other [employer] Other 03-07-2023 10:00-0400 Diastolic blood pressure 70 mm[Hg] Terry Kimblediff Other [employer] Other 03-07-2023 10:00-0400 Respiratory rate 20 /min Terry Kelley Other [employer] Other 03-07-2023 10:00-0400 SaO2% (BldA) [Mass fraction] 96 % Terry Kelley Other [employer] Other 03-07-2023 10:00-0400 Systolic blood pressure 134 mm[Hg] Terry Kimblediff Other [employer] Other 02-14-2023 09:45-0400 Body height 172.72 cm Tondra Mapus Other [employer] Other 02-14-2023 09:45-0400 Body mass index (BMI) [Ratio] 41.32 kg/m2 Tondra Mapus Other [employer] Other 02-14-2023 09:45-0400 Body weight 123.29 kg Tondra Mapus Other [employer] Other 02-14-2023 09:45-0400 Diastolic blood pressure 82 mm[Hg] Tondra Mapus Other [employer] Other 02-14-2023 09:45-0400 Respiratory rate 18 /min Tondra Mapus Other [employer] Other 02-14-2023 09:45-0400 SaO2% (BldA) [Mass fraction] 97 % Aldo Middleton Other [employer] Other 02-14-2023 09:45-0400 Systolic blood pressure 157 mm[Hg] Aldo Grantus Other [employer] Other 01-20-2023 12:15-0400 Body height 172.72 cm Carito Fitt Other [employer] Other 01-20-2023 12:15-0400 Body mass index (BMI) [Ratio] 40.71 kg/m2 Carito Fitt Other [employer] Other 01-20-2023 12:15-0400 Body weight 121.47 kg Carito Fitt Other [employer] Other 01-05-2023 11:15-0400 Body height 172.72 cm Terry Kelley Other [employer] Other 01-05-2023 11:15-0400 Body mass index (BMI) [Ratio] 40.96 kg/m2 Terry Kelley Other [employer] Other 01-05-2023 11:15-0400 Body weight 122.2 kg Terry Kelley Other [employer] Other 01-05-2023 11:15-0400 Diastolic blood pressure 73 mm[Hg] Terry Kelley Other [employer] Other 01-05-2023 11:15-0400 Respiratory rate 18 /min Terry Kelley Other [employer] Other 01-05-2023 11:15-0400 SaO2% (BldA) [Mass fraction] 98 % Terry Kimblediff Other [employer] Other 01-05-2023 11:15-0400 Systolic blood pressure 143 mm[Hg] Terry Kimblediff Other [employer] Other 11-24-2022 12:15-0500 Body height 172.72 cm Carito Fitt Other [employer] Other 11-24-2022 12:15-0500 Body mass index (BMI) [Ratio] 42.22 kg/m2 Carito Fitt Other [employer] Other 11-24-2022 12:15-0500 Body weight 125.96 kg Carito Fitt Other [employer] Other 11-18-2022 11:15-0500 Body height 172.72 cm Terry Kimblediff Other [employer] Other 11-18-2022 11:15-0500 Body mass index (BMI) [Ratio] 41.96 kg/m2 Terry Kimblediff Other [employer] Other 11-18-2022 11:15-0500 Body weight 125.19 kg Terry Kimblediff Other [employer] Other 11-18-2022 11:15-0500 Diastolic blood pressure 75 mm[Hg] Terry Kelley Other [employer] Other 11-18-2022 11:15-0500 Respiratory rate 18 /min Terry Kelley Other [employer] Other 11-18-2022 11:15-0500 SaO2% (BldA) [Mass fraction] 99 % Terry Kelley Other [employer] Other 11-18-2022 11:15-0500 Systolic blood pressure 148 mm[Hg] Terry Kelley Other [employer] Other 11-07-2022 10:15-0500 Body height 172.72 cm Tondra Mapus Other [employer] Other 11-07-2022 10:15-0500 Body mass index (BMI) [Ratio] 42.58 kg/m2 Tondra Mapus Other [employer] Other 11-07-2022 10:15-0500 Body weight 127.05 kg Tondra Mapus Other [employer] Other 11-07-2022 10:15-0500 Diastolic blood pressure 83 mm[Hg] Tondra Mapus Other [employer] Other 11-07-2022 10:15-0500 Respiratory rate 18 /min Tondra Mapus Other [employer] Other 11-07-2022 10:15-0500 SaO2% (BldA) [Mass fraction] 98 % Tondra Mapus Other [employer] Other 11-07-2022 10:15-0500 Systolic blood pressure 170 mm[Hg] Tondra Mapus Other [employer] Other 10-18-2022 15:00-0500 Body height 172.72 cm Carito Fitt Other [employer] Other 2022 16:15-0400 Body height 172.72 cm Carito Fitt Other [employer] Other 07-27-2022 12:00-0400 Body height 172.72 cm Tondra Mapus Other [employer] Other 07-27-2022 12:00-0400 Body mass index (BMI) [Ratio] 40.9 kg/m2 Tondra Mapus Other [employer] Other 07-27-2022 12:00-0400 Body weight 122.02 kg Tondra Mapus Other [employer] Other 07-27-2022 12:00-0400 Diastolic blood pressure 75 mm[Hg] Tondra Mapus Other [employer] Other 07-27-2022 12:00-0400 Respiratory rate 20 /min Tondra Mapus Other [employer] Other 07-27-2022 12:00-0400 SaO2% (BldA) [Mass fraction] 97 % Tondra Mapus Other [employer] Other 07-27-2022 12:00-0400 Systolic blood pressure 141 mm[Hg] Tondra Mapus Other [employer] Other 06-08-2022 10:45-0400 Body height 172.72 cm Carito West Other [employer] Other 04-21-2022 12:00-0400 Body height 172.72 cm Tondra Mapus Other [employer] Other 04-21-2022 12:00-0400 Body mass index (BMI) [Ratio] 39.67 kg/m2 Tondra Mapus Other [employer] Other 04-21-2022 12:00-0400 Body weight 118.34 kg Tondra Mapus Other [employer] Other 04-21-2022 12:00-0400 Diastolic blood pressure 74 mm[Hg] Tondra Mapus Other [employer] Other 04-21-2022 12:00-0400 Respiratory rate 20 /min Tondra Mapus Other [employer] Other 04-21-2022 12:00-0400 SaO2% (BldA) [Mass fraction] 97 % Tondra Mapus Other [employer] Other 04-21-2022 12:00-0400 Systolic blood pressure 143 mm[Hg] Tondra Mapus Other [employer] Other 10-21-2021 12:00-0500 Body height 172.72 cm Tondra Mapus Other [employer] Other 10-21-2021 12:00-0500 Body mass index (BMI) [Ratio] 40.14 kg/m2 Tondra Mapus Other [employer] Other 10-21-2021 12:00-0500 Body weight 119.75 kg Tondra Mapus Other [employer] Other 10-21-2021 12:00-0500 Diastolic blood pressure 78 mm[Hg] Tondra Mapus Other [employer] Other 10-21-2021 12:00-0500 Respiratory rate 20 /min Tondra Mapus Other [employer] Other 10-21-2021 12:00-0500 SaO2% (BldA) [Mass fraction] 97 % Tondra Mapus Other [employer] Other 10-21-2021 12:00-0500 Systolic blood pressure 147 mm[Hg] Tondra Mapus Other [employer] Other 07-21-2021 15:45-0400 Body height 172.72 cm Morgan Kunz Other [employer] Other 07-21-2021 15:45-0400 Body mass index (BMI) [Ratio] 38.77 kg/m2 Morgan Kunz Other [employer] Other 07-21-2021 15:45-0400 Body weight 115.67 kg Morgan Kunz Other [employer] Other 12-14-2017 15:17-0500 Body height 170.18 cm MD Scarlet Johnson Work Phone: [facility] Encounters Encounter Date Encounter Type Care Provider Facility Start: 12-19-2024 End: 12-19-2024 ambulatory [facility] Start: 12-18-2024 End: 12-18-2024 ambulatory [facility] Start: 12-18-2024 End: 12-18-2024 Encounter for other preprocedural examination [facility] Start: 12-04-2024 End: 12-04-2024 ambulatory Nanette Barajas Facility:[facility] [place] [facility] Start: 12-04-2024 End: 12-04-2024 ambulatory Krishna Talal Sarmini Facility:[facility] Start: 12-02-2024 End: 12-02-2024 ambulatory Miguelangel Mac MD Facility:[facility] Start: 11-27-2024 End: 11-27-2024 ambulatory Krishna Talal Sarmini Facility:[facility] Start: 11-18-2024 End: 11-18-2024 ambulatory Haider Hickman Facility:[facility] [place] [facility] Start: 11-12-2024 End: 11-12-2024 ambulatory Haider Hickman Facility:[facility] [place] [facility] Start: 11-07-2024 ambulatory Krishna Sarmini Facili ty:[facility] Start: 11-06-2024 ambulatory Araceli BERMUDEZ Facility :[facility] Start: 11-04-2024 End: 11-04-2024 ambulatory Haider Hickman Facility:[facility] [place] [facility] Start: 10-24-2024 End: 10-24-2024 ambulatory Haider Hickman Facility:[facility] [place] [facility] Start: 10-17-2024 End: 10-17-2024 Bamboo flowsheet Bassam Aguilar DPM Work Phone: [facility] Start: 10-17-2024 End: 10-17-2024 Bamboo flowsheet Bassam Aguilar DPM Work Phone: [facility] Start: 10-17-2024 End: 10-17-2024 Patient encounter procedure Bassam Aguilar DPM Work Phone: [facility] Comment on above: Diabetes mellitus du e to underlying condition with diabetic polyneuropathy, 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 manager insulin use ([facility]) (Primary Dx); Pain due to onychomycosis of toenails of both feet; Venous insufficiency Start: 10-17-2024 End: 10-17-2024 ambulatory BASSAM AGUILAR Not Available Start: 10-15-2024 End: 10-15-2024 ambulatory Haider Hickman Facility:[facility] Jocelyn silva Start: 09-09-2024 End: 09-09-2024 ambulatory Haider Hickman Facility:[facility] Start: 09-09-2024 End: 09-09-2024 ambulatory Miguelangel Mac MD Facility:[facility] Start: 09-02-2024 End: 09-02-2024 ambulatory Miguelangel Mac MD Facility:[facility] Start: 08-29-2024 End: 08-29-2024 Bamboo flowsheet Matthew May DO Work Phone: [facility] Start: 08-29-2024 End: 08-29-2024 Bamboo flowsheet Matthew aMy DO Work Phone: [facility] Start: 08-29-2024 End: 08-29-2024 Office outpatient new 45 minutes Matthew May DO Work Phone: [facility] Comment on above: Right foot pain (Brie jesse Dx); Diabetic polyneuropathy associated with type 2 diabetes mellitus ([facility]) Start: 08-29-2024 End: 08-29-2024 ambulatory MATTHEW MAY Not Available Start: 08-15-2024 End: 08-15-2024 ambulatory Haider Hickman Facility:[facility] Jocelyn silva Start: 08-14-2024 End: 08-14-2024 ambulatory HAIDER HICKMAN Facility:[facility] Start: 08-14-2024 End: 08-14-2024 Patient encounter procedure Chiqui Robles MD Work Phone: Neurology Pain Comment on above: 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; Chronic toe pain, right foot; Class 3 severe obesity with serious comorbidity and body mass index (BMI) of 40.0 to 44.9 in adult, unspecified obesity type ([facility]) Start: 08-08-2024 End: 08-08-2024 Bamboo flowsheet Bassam [...] underlying condition with diabetic polyneuropathy, 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 manager insulin use (CMS/HCC); Pain due to onychomycosis of toenails of both feet Start: 08-08-2024 End: 08-08-2024 ambulatory BASSAM AGUILAR Not Available Start: 08-07-2024 End: 08-07-2024 ambulatory [facility] Start: 08-06-2024 End: 08-06-2024 Bamboo flowsheet [...] 08-01-2024 End: 08-01-2024 ambulatory Haider Hickman Facility:[facility] Start: 07-31-2024 End: 07-31-2024 Bamboo flowsheet Shyam [...] underlying condition with diabetic polyneuropathy, 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 manager insulin use ([facility]); Amputation of right great toe ([facility]) Start: 07-31-2024 End: 07-31-2024 ambulatory SHYAM D [...] underlying condition with diabetic polyneuropathy, 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 nursing home insulin use ([facility]) Start: 07-24-2024 End: 07-24-2024 ambulatory SHYAM D DOLCE Not Available Start: 07-23-2024 End: 07-23-2024 Bamboo flowsheet Arlen Sanchez DO Work Phone: [facility] Start: 07-23-2024 End: 07-23-2024 Bamboo flowsheet Arlen Sanchez DO Work Phone: [facility] Start: 07-23-2024 End: 07-23-2024 Office outpatient visit 25 minutes Arlen Sanchez DO Work Phone: [facility] Comment on above: Internal derangement of left shoulder (Primary Dx); Arthritis of left acromioclavicular joint; Complete tear of left rotator cuff, 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 traumatic; Left shoulder pain, unspecified chronicity Start: 07-23-2024 End: 07-23-2024 ambulatory ARLEN SANCHEZ Not Available Start: 07-19-2024 End: 07-22-2024 Refill Chiqui Robles MD Work Phone: Neurology Pain Comment on above: Med Change Request Start: 07-19-2024 End: 07-19-2024 ambulatory ELAINE [facility] Start: 07-17-2024 End: 07-18-2024 ambulatory Araceli BERMUDEZ Facility:[facility] Comment on above: Medication Question Start: [...] 07-01-2024 End: 07-01-2024 Bamboo flowsheet Chelle Brandon BRIDGE TEACHER Work Phone: [facility] Start: 07-01-2024 End: 07-01-2024 Bamboo flowsheet Chelle Brandon BRIDGE TEACHER Work Phone: [facility] Start: 07-01-2024 End: 07-01-2024 Office outpatient visit 15 minutes Chelle Brandon BRIDGE TEACHER Work Phone: [facility] Comment on above: Left shoulder pain, unspecified chronicity (Primary Dx); Arthritis of left acromioclavicular joint; Glenohumeral arthritis, left; Impingement of left shoulder; Internal derangement of left shoulder Start: 07-01-2024 End: 07-01-2024 ambulatory CHELLE FELDMANING Not Available Start: 06-26-2024 End: 06-26-2024 ambulatory MARY [facility] Start: 06-25-2024 End: 06-25-2024 ambulatory KAJAL R DOLCE Not Available Start: 06-25-2024 End: 06-25-2024 Office outpatient visit 15 minutes Kajal R Dolce DPM FACFAS Work Phone: [facility] Comment on above: 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); Diabetes 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, 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 nursing home insulin use ([facility]); Venous insufficiency; Non-pressure chronic ulcer of other part of right lower leg with fat layer exposed ([facility]) Start: 06-25-2024 End: 06-25-2024 Bamboo flowsheet Kajal R Dolce DPM FACFAS Work Phone: [facility] Start: 06-25-2024 End: 06-25-2024 Bamboo flowsheet Kajal R Dolce DPM FACFAS Work Phone: [facility] Start: 06-19-2024 End: 06-19-2024 Telephone encounter Shyam Cam DPM FACFAS Work Phone: [facility] Start: 06-19-2024 End: 06-19-2024 ambulatory Kajal R Dolce Facility:[facility] Start: 06-19-2024 End: 06-19-2024 Office outpatient visit [...] underlying condition with diabetic polyneuropathy, 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 nursing home insulin use ([facility]); Amputation of right great toe ([facility]) Start: 06-12-2024 End: 06-12-2024 Bamboo flowsheet Chelle Brandon BRIDGE TEACHER Work Phone: [facility] Start: 06-12-2024 End: 06-12-2024 Bamboo flowsheet Chelle Brandon BRIDGE TEACHER Work Phone: [facility] Start: 06-12-2024 End: 06-12-2024 ambulatory Kajal Cam Facility:[facility] Start: 06-12-2024 End: 06-12-2024 Office outpatient visit 25 minutes Chelle Brandon BRIDGE TEACHER Work Phone: [facility] Comment on above: Left shoulder pain, unspecified chronicity (Primary Dx); Arthritis of left acromioclavicular joint; Glenohumeral arthritis, left; Impingement of left shoulder Start: 06-12-2024 End: 06-12-2024 ambulatory CHELLE BRANDON Not Available Start: 06-07-2024 End: 06-07-2024 [facility] Britney Hyde PhD Work Phone: Pain Recovery Comment on above: Adjustment disorder with depressed mood (Primary Dx); Complex regional pain syndrome type II of right lower limb; Chronic toe pain, right foot Start: 06-05-2024 End: 06-05-2024 ambulatory Kajal Cam Facility:[facility] Start: 06-03-2024 End: 06-03-2024 Telephone encounter Chelle Rosamaria Roma BRIDGE TEACHER Work Phone: [facility] Start: 05-27-2024 End: 05-27-2024 ambulatory CHELLE BRANDON Not Available Start: 05-23-2024 ambulatory Chiqui chapa MD Work Phone: Neurology Pain Comment on above: taking memantine HCL Start: 05-22-2024 End: 05-22-2024 ambulatory DAVID ACOSTA Facility:[facility] [place] [facility] Start: 05-13-2024 End: 05-13-2024 ambulatory Haider Hickman Facility:[facility] [place] [facility] Start: 05-09-2024 End: 05-09-2024 ambulatory BASSAM AGUILAR Not Available Start: 05-07-2024 ambulatory Morgan Trinidad Therapist Work Phone: Pain Recovery Comment on above: next step, resources Start: 05-07-2024 E-mail encounter fro m caregiver Morgan Trinidad Therapist Work Phone: Pain Recovery Start: 05-06-2024 End: 05-06-2024 [facility] Morgan Trinidad Therapist Work Phone: Pain Recovery Comment on above: Adjustment disorder with depressed mood (Primary Dx); Complex regional pain syndrome type II of right lower limb; Chronic toe pain, right foot Start: 04-24-2024 End: 04-24-2024 ambulatory HAIDER HICKMAN Facility:[facility] Start: 04-24-2024 End: 04-24-2024 Patient [...] End: 04-23-2024 ambulatory Haider Hickman Facility: [facility] [place] [facility] Start: 04-03-2024 End: 04-03-2024 ambulatory HERBERTH ARAUJO Facility:[facility] Start: 03-26-2024 End: 03-26-2024 ambulatory Haider Hickman Facility:[facility] Jocelyn silva Start: 03-19-2024 Telephone encounter Herberth meyers MD, PhD Work Phone: Pain Management Comment on above: Nurse Triage Call Start: 03-08-2024 End: 03-08-2024 ambulatory Haider Hickman Facility:[facility] Start: 03-07-2024 End: 03-07-2024 ambulatory [facility] Start: 02-29-2024 End: 02-29-2024 ambulatory HERBERTH Nur ALEXIADAMIÁNMary Facility:[facility] Start: 02-29-2024 End: 02-29-2024 Patient [...] Start: 02-05-2024 End: 02-05-2024 ambulatory FRANCOISE SINGLETARY Facility:[facility] Start: 02-05-2024 End: 02-05-2024 Patient encounter procedure Francoise Singletary MD Work Phone: Pain Management Comment on above: Chronic toe pain, ri ght foot (Primary Dx); Painful diabetic neuropathy (HCC); Class 3 severe obesity with serious comorbidity and body mass index (BMI) of 40.0 to 44.9 in adult, unspecified obesity type (HCC) Start: 01-24-2024 End: 01-24-2024 ambulatory Araceli BERMUDEZ Facility:[facility] Start: 01-22-2024 End: 01-22-2024 ambulatory MACY MCPHERSON Not Available Start: 01-04-2024 End: 01-04-2024 ambulatory Araceli Mile BERMUDEZ Facility:[facility] Start: 01-03-2024 End: 01-03-2024 ambulatory CHELLE BRANDON Not Available Start: 12-29-2023 End: 12-29-2023 ambulatory Araceli Mile BERMUDEZ Facility:[facility] Start: 12-26-2023 End: 12-26-2023 ambulatory Haider Hickman Facility:[facility] Start: 12-14-2023 End: 12-14-2023 ambulatory BASSAM AGUILAR Not Available Start: 10-18-2023 End: 10-18-2023 ambulatory Araceli BERMUDEZ Facility: [facility] Start: 09-20-2023 End: 09-20-2023 ambulatory Haider Hickman Facility:[facility] Jocelyn silva Start: 09-12-2023 End: 09-12-2023 ambulatory Tondra Mapus Other [facility] [employer] Other Start: 09-12-2023 Telephone encounter Tondra Mapus [facility] Start: 09-11-2023 (DM) Diabetes Tondra Mapus [facility] Start: 09-11-2023 End: 09-12-2023 ambulatory MD Scarlet Johnson Work Phone: [facility] [employer] Other Start: 09-11-2023 End: 09-11-2023 Discharged Recurring MD Scarlet Johnson Work Phone: [facility] Work Phone: Start: 09-11-2023 End: 09-11-2023 Patient encounter procedure MD Scarlet Johnson Work Phone: [facility] Work Phone: Start: 08-24-2023 End: 08-24-2023 Patient encounter procedure MD Scarlet Johnson Work Phone: [facility] Start: 08-24-2023 End: 08-24-2023 ambulatory MD Scarlet Johnson Work Phone: [facility] Work Phone: Start: 08-24-2023 Office outpatient ne w 60 minutes Eligio Soni [facility] Start: 08-24-2023 End: 08-24-2023 Patient encounter procedure MD Scarlet Johnson Work Phone: [facility] Work Phone: Start: 08-21-2023 End: 08-21-2023 ambulatory Haider Bee Kristofer Facility:[facility] Jocelyn shira Start: 07-26-2023 End: 07-26-2023 ambulatory Haider Hickman Facility:[facility] Jocelyn adkinse Start: 06-14-2023 End: 06-14-2023 ambulatory Tondra Mapus Other [employer] Other Start: 06-14-2023 Telephone encounter Tondra Mapus [facility] Start: 06-09-2023 End: 06-09-2023 ambulatory Carito West Other [employer] Other Start: 06-09-2023 Nursing evaluation o f patient and report Carito Frandyjosiane [facility] Start: 06-09-2023 Registered Recurring MD Scarlet franks Work Phone: [facility] Work Phone: Start: 05-31-2023 End: 05-31-2023 ambulatory Tondra Mapus Other [employer] Other Start: 05-31-2023 Telephone encounter Tondra Mapus [facility] Start: 03-07-2023 Follow-up encounter Terry moreno [facility] Start: 03-07-2023 End: 03-08-[address] [facility] [employer] Other Start: 02-17-2023 End: 02-17-[address] JOVITA WOODARD . Facility:[facility] Start: 02-14-2023 (DM) Diabetes Tondra Juanitaus [facility] Start: 02-14-2023 End: 02-14-2023 ambulatory Tondra Mapus Other [employer] Other Start: 01-20-2023 ([facility] RD FU) [facility] F/ U [employer] Carter Carito West [facility] Start: 01-20-2023 End: 01-20-2023 ambulatory Carito West Other [employer] Other Start: 01-05-2023 End: 01-05-2023 ambulatory Terry Kelley Other [employer] Other Start: 01-05-2023 Follow-up encounter Terry moreno [facility] Start: 12-30-2022 End: 12-31-2022 ambulatory MARY APARICIO Facility:[facility] Start: 12-29-2022 End: 12-30-[address] BRITTNY MORALES Facility:[facility] Start: 12-21-2022 End: 01-28-[address] SCARLET JOHNSON . Facility:[facility] Start: 12-09-[address] SCARLET JOHNSON . Facil ity:[facility] Start: 12-08-2022 End: 12-09-[address] MORGAN ROJO Facility:[facility] Start: 11-25-2022 End: 11-26-[address] TERRY KELLEY Facility:[facility] Start: 11-24-2022 ([facility] WMNI) WMN Init ial Provider Carito West [facility] Start: 11-24-2022 End: 11-24-2022 ambulatory Carito West Other [employer] Other Start: 11-22-2022 End: 11-22-2022 ambulatory Tondra Juanitaus Other [employer] Other Start: 11-22-2022 Nursing evaluation o f patient and report Tondra Middleton [facility] Start: 11-18-2022 End: 11-18-2022 ambulatory Terrynikoali Kimblediff Other [employer] Other Start: 11-18-2022 Nutrition therapy Terry Kelley [facility] Start: 11-08-2022 End: 11-09-[address] SCARLET JOHNSON . Facility:[facility] Start: 11-07-2022 (DM) Diabetes Tondra Emi [facility] Start: 11-07-2022 End: 11-07-2022 ambulatory Tondra Middleton Other [employer] Other Start: 10-18-2022 (RD) Entry Level Management Dawn Fitt [facility] Start: 10-18-2022 End: 10-18-2022 ambulatory Carito West Other [employer] Other Start: 08-18-2022 End: 08-19-[address] BRITTNY MORALES Facility:[facility] Start: 2022 ([facility] DB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 [facility] Other 09-01-2023 Evaluation note* Encounter Date Diagnosis Assessment Notes Treatment Notes Treatment Clinical Notes Jun, Type 2 diabetes mellitus with diabetic chronic kidney disease (ICD-10 - E11.22) Dong and his came in today for [employer] training and refresher on his insulin [...] He was given a no cut [employer] to try and a brochure to buy them online. We discussed the Novolog pen and that he is to use it if his BG before a meal is greater than 150. He was able to dial the pen and knows how to put the pen needle on and deliver the dose. 30 minutes were spent educating the patient by Kamlesh Sparrow RN, [facility]. [facility] Other 05-30-2023 Evaluation note* Encounter Date Diagnosis [...] February, Metabolic syndrome X (ICD-10 - E88.81) [facility] Other 05-09-2023 Evaluation note* Encounter Date Diagnosis [...] last visit, continue with weight loss efforts [facility] Other 04-14-2023 Evaluation note* Encounter Date Diagnosis [...] the following goals: Add flavors to vegetables [facility] Other 03-30-2023 Evaluation note* Encounter Date Diagnosis [...] Dec, Metabolic syndrome X (ICD-10 - E88.81) [facility] Other 03-23-2023 NoteCARDIAC STRESS TEST Requesting Physician: [...] interpreted and reported nuclear myocardial perfusion imaging.[id number]* Encounter Date Diagnosis Assessment Notes [...] following goals: 1) Increase vegetables at dinner [facility] Other 02-14-2023 Evaluation note* Encounter Date Diagnosis [...] him and his by Kamlesh Sparrow RN, [facility]. Reviewed cgm download 11/08/22-11/20/22: Avg glucose 171. >250-1%, >180-30%, 70-180-69%, <70-0%, <540%. CV 15..2%. Tomekapus LUISA, TECHNICAL DIRECTOR-C, BC-ADM [facility] Other 02-10-2023 Evaluation note* Encounter Date Diagnosis [...] Nov, Metabolic syndrome X (ICD-10 - E88.81) [facility] Other 01-30-2023 Evaluation note* Encounter Date Diagnosis [...] medication issues. 6. Prescriptions: Acarbose sent to [facility]. Sample baylee 2 cgm given [...] Baylee 2 sensor and an office owned, [employer] [place]. His phone was not compatible with Baylee 2 or 3, or Dexcom G6. He previously wore the Baylee 14 day system and did not need training on applying the device. I did train him on the use of the reader. He was vgiven samples of Grif [employer] and Skin Tac to help keep the device in place. 45 minutes were spent educating the patient by Kamlesh Sparrow RN, [facility]. [facility] Other 01-10-2023 Evaluation note* Encounter Date Diagnosis [...] program2) Try roasted cronin peppers (recipe provided) [facility] Other [id number] NotePROCEDURE: XR FOOT RT MIN 3 VIEWS [...] Electronically authenticated by: BRITTNY MORALES Date: 2022-08-19 06:17[facility]11-02-2022 Evaluation note* Encounter Date Diagnosis [...] nuts or cheese + crackers -Only likes kuwaiti cheese,-Recommended 15g or less for snacks; so [...] likes those-Increase vegetable intake-Vegetables: corn, peas, carrots [facility] Other 10-19-2022 Evaluation note* Encounter Date Diagnosis [...] referral to Dr. Kelley for weight management [facility] Other 08-31-2022 Evaluation note* Encounter Date Diagnosis [...] and his would cook it for him [facility] Other 07-14-2022 Evaluation note* Encounter Date Diagnosis [...] improved glycemia. Pt would likek referral to sales support engineer. Note pt has intolerance to glp1 class [...] of glucose/bp control to prevent further nephropathy [facility] Other 01-13-2022 Evaluation note* Encounter Date Diagnosis [...] medication issues. 6. Prescriptions: Pioglitazone sent to [facility]. Oct, Hyperlipidemia, unspecified hyperlipidemia type (ICD-10 - [...] brochure given today. Recommend call if interested. [facility] Other 10-13-2021 Evaluation note* Encounter Date Diagnosis Assessment Notes Treatment Notes Treatment Clinical Notes Jul, SANTANA (nonalcoholic steatohepatitis) (ICD-10 - K75.81) 13 Jul, 2021 Other [facility] INDICATED ABOVE F/U HERE PRN [facility] Other Evaluation noteNo InformationNort [employer] Other Evaluation noteNo assessment information available [facility] Work Phone: Evaluation note* Diagnosis Chronic toe pain, right foot- Primary 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, not stated as uncontrolled Class 3 severe obesity with serious comorbidity and body mass index (BMI) of 40.0 to 44.9 in adult, unspecified obesity type (HCC) [facility] Chronic toe pain, right foot- [...] right lower limb [facility] Diagnosis Adjustment disorder with depressed mood- Primary Complex regional pain syndrome type II of right lower limb Chronic toe pain, right foot Class 3 severe obesity with serious comorbidity and body mass index (BMI) of 40.0 to 44.9 in adult, unspecified obesity type (HCC) [facility] Diagnosis Adjustment disorder with depressed mood- Primary Complex regional pain syndrome type II of right lower limb Chronic toe pain, right foot [facility] Diagnosis Adjustment disorder with depressed mood- Primary Complex regional pain syndrome type II of right lower limb Chronic toe pain, right foot [facility] Diagnosis Complex regional pain syndrome type II of right lower limb [facility] Diagnosis Acquired deformity of right toe- Primary Diabetes 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, 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 nursing home insulin use ([facility]/HCC) [facility] Internal derangement of left shoulder- Primary Arthritis of left acromioclavicular joint Complete tear of left rotator cuff, 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 traumatic Left shoulder pain, unspecified chronicity documented in [facility] encounter [facility]* Diagnosis Acquired deformity of right toe- Primary Diabetes 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, 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 nursing home insulin use ([facility]) Amputation of right great toe ([facility]) documented in this encounter [facility]* Diagnosis Amputation of toe of right foot ([facility])- Primary Diabetes 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, 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 manager insulin use ([facility]) Pain due to onychomycosis of toenails of both feet documented in this encounter [facility]* Diagnosis Internal derangement of left shoulder- Primary Complete tear of left rotator cuff, 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 traumatic documented in this encounter [facility]* Diagnosis Complex regional pain syndrome type II of right lower limb Chronic toe pain, right foot Class 3 severe obesity with serious comorbidity and body mass index (BMI) of 40.0 to 44.9 in adult, unspecified obesity type ([facility]) [facility] Right foot pain- Primary Pain in soft tissues of limb Diabetic polyneuropathy associated with type 2 diabetes mellitus ([facility]) documented in this encounter [facility]* Diagnosis Acquired deformity of right toe- Primary Left shoulder pain, unspecified chronicity- Primary Arthritis of left acromioclavicular joint Glenohumeral arthritis, left Impingement of left shoulder documented in this encounter [facility]* Diagnosis Acquired deformity of right toe- Primary Diabetes 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, 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 nursing home insulin use ([facility]) Venous insufficiency Unspecified venous (peripheral) insufficiency Non-pressure chronic ulcer of other part of right lower leg with fat layer exposed ([facility]) Left shoulder pain, unspecified chronicity- Primary Arthritis of left acromioclavicular joint Glenohumeral arthritis, left Impingement of left shoulder documented in this encounter [facility]* Diagnosis Left shoulder pain, unspecified chronicity- Primary Arthritis of left acromioclavicular joint Glenohumeral arthritis, left Impingement of left shoulder documented in this encounter [facility]* Diagnosis Acquired deformity of right toe- Primary Diabetes 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, 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 manager 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 use ([facility]) Amputation of right great toe ([facility]) documented in this encounter [facility]* Diagnosis Acquired deformity of right toe Left shoulder pain, unspecified chronicity- Primary Arthritis of left acromioclavicular joint Glenohumeral arthritis, left Impingement of left shoulder documented in this encounter [facility]* Diagnosis Left shoulder pain, unspecified chronicity- Primary Arthritis of left acromioclavicular joint Glenohumeral arthritis, left Impingement of left shoulder Internal derangement of left shoulder documented in this encounter [facility]* Diagnosis Acquired deformity of right toe- Primary documented in this encounter [facility]* Diagnosis Internal derangement of left shoulder- Primary documented in this encounter [facility]* Diagnosis Diabetes 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, 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 nursing home insulin use ([facility])- Primary Pain due to onychomycosis of toenails of both feet Venous insufficiency Unspecified venous (peripheral) insufficiency documented in this encounter [facility] HealthcareHistory general Narrative - Reported* Type [...] first metatarsal 11-16-18 Hospitalization History see above [facility] Other History general Narrative - Reported* Type [...] Foot Surgery 10/27/2021 Hospitalization History see above [facility] Other History general Narrative - Reported* Type [...] Foot Surgery 10/27/2021 Hospitalization History see above [facility] Other Reason for visit Narrative* Consultation (Routine) - Closed Specialty Diagnoses / Procedures Referred By Segundo joshua Referred To Contact Neurology Diagnoses Neuropathic pain, MRI / labs @ [facility] , ref by Dr Hickman Procedures DC OFFICE/OUTPATIENT [facility] 30 MINUTES NEURO NEW PATIENT Haider Hickman MD [address] [place] [address] Phone: tel: fax: Matthew May, [address] [facility] [address] [place] [address] Phone: tel: fax: Referral ID Status Reason Start Date Expiration Date V isits Requested Visits Authorized [id number] Closed Consult and Treat 08/22/2024 02/18/2025 1 1 [facility] Summary Purpose Family History No Family History Records Found Relationship Condition Age at Onset Recorded Date/T roshin family member Obesity Unknown father History of [...] Referred By Segundo joshua Referred To Contact Radiology Diagnoses Internal derangement of left shoulder Procedures MR shoulder left wo IV contrast Chelle Brandon NP [address] [address] Referral ID Status Reason Start Date Expiration Date V isits Requested Visits Authorized [id number] Pending Review 07/01/2024 12/28/2024 1 1 Specialty Diagnoses / Procedures Referred By Contac t Referred To Contact Orthopaedic Surgery Diagnoses Impingement of left shoulder Procedures L Inj/Asp: L subacromial bursa Chelle Brandon, BRIDGE TEACHER [address] [address] Referral ID Status Reason Start Date Expiration Date V isits Requested Visits Authorized [id number] Authorized 06/12/2024 12/09/2024 1 1 Specialty Diagnoses / Procedures Referred By Contac t Referred To Contact Diagnoses Acquired deformity of right toe Shyam Cam, DPM [facility] [address] [place] [address] Referral ID Status Reason Start Date Expiration Date V isits Requested Visits Authorized [id number] Pending Review 06/19/2024 12/16/2024 1 1 Specialty Diagnoses / Procedures Referred By Contac t Referred To Contact Diagnoses Complex regional pain syndrome type II of right lower limb Chronic toe pain, right foot Class 3 severe obesity with serious comorbidity and body mass index (BMI) of 40.0 to 44.9 in adult, unspecified obesity type (HCC) Procedures PROVIDER ORDERED FOLLOW UP OFFICE/OUTPATIENT [facility]DM 60 MINUTES Chiqui Robles MD [address] [id number] Referral ID Status Reason Start Date Expiration Date Visits Requested Visits Authorized [id number] Authorized PCP Requested Referral 06/25/2024 04/24/2025 1 1 Specialty Diagnoses / Procedures Referred By Contac t Referred To Contact Infectious Diseases Diagnoses Dermatitis of lower extremity Procedures CONSULT TO INFECTIOUS DISEASES OFFICE/OUTPATIENT [facility] 60 MINUTES Herberth Araujo MD, PhD [address] [place] [address] Referral ID Status Reason Start Date Expiration Date Visits Requested Visits Authorized [id number] Authorized PCP Requested Referral 02/29/2024 02/28/2025 1 1 Specialty Diagnoses / Procedures Referred By Contac t Referred To Contact Podiatry Diagnoses Chronic toe pain, right foot Painful diabetic neuropathy (HCC) Procedures CONSULT TO PODIATRY OFFICE/OUTPATIENT [facility] 60 MINUTES Francoise Singletary MD [address] [place] [address] Referral ID Status Reason Start Date Expiration Date Visits Requested Visits Authorized [id number] Authorized PCP Requested Referral 02/05/2024 02/04/2025 1 1 Specialty Diagnoses / Procedures Referred By Contac t Referred To Contact Neurology Diagnoses Chronic toe pain, right foot Painful diabetic neuropathy (HCC) Procedures CONSULT TO NEUROLOGY OFFICE/OUTPATIENT [facility] 60 MINUTES Francoise Singletary MD [address] [place] [address] Referral ID Status Reason Start Date Expiration Date Visits Requested Visits Authorized [id number] Authorized PCP Requested Referral 02/05/2024 02/04/2025 1 1 Specialty Diagnoses / Procedures Referred By Contac t Referred To [facility] Diagnoses Chronic toe pain, right foot Painful diabetic neuropathy (HCC) Procedures CONSULT TO [facility]) OFFICE/OUTPATIENT [facility] 60 MINUTES Francoise Singletary MD [address] [place] [address] Referral ID Status Reason Start Date Expiration Date Visits Requested Visits Authorized [id number] Pending Review PCP Requested Referral 02/05/2024 02/04/2025 1 1 Additional Source Comments REASON FOR VISIT (unrecogniz ed section and content) Reason Comments Consult Rt foot Reason Comments Established Patient Medication Update Reason Comments Nurse Triage Call Reason Comments New Patient Specialty Diagnoses / Procedures Referred By Contac t Referred To [facility] Diagnoses Complex regional pain syndrome type II of right lower limb Chronic toe pain, right foot Class 3 severe obesity with serious comorbidity and body mass index (BMI) of 40.0 to 44.9 in adult, unspecified obesity type (HCC) Procedures CONSULT TO [facility] ([facility]) OFFICE/OUTPATIENT [facility] 60 MINUTES Herberth Araujo MD, PhD [address] [place] [address] Referral ID Status Reason Start Date Expiration Date Visits Requested Visits Authorized [id number] Pending Review PCP Requested Referral 04/03/2024 04/03/2025 [...] 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 traumatic Arlen Sanchez, DO [address] [facility] [address] [place] [address] Phone: tel: fax: Khai Heard, DO [address] [facility] [place] [address] Phone: tel: fax: Referral ID Status Reason Start Date Expiration Date V isits Requested Visits Authorized [id number] Closed Consult and Treat 07/23/2024 01/19/2025 1 [...] FOLLOW UP OFFICE/OUTPATIENT [facility] 60 MINUTES Chiqui Robles MD [address] [place] [address] Referral ID Status Reason Start Date Expiration Date V isits Requested Visits Authorized [id number] Closed PCP Requested Referral 06/25/2024 04/24/2025 1 [...] and content) DATE CREATED AUTHOR 02/20/[address] [facility] DATE CREATED AUTHOR AUTHOR'S ORGANIZ ATION 11/22/2023 [facility] DATE CREATED AUTHOR AUTHOR'S ORGANIZ ATION 03/09/2024 [facility] DATE CREATED AUTHOR AUTHOR'S ORGANIZ ATION 03/16/2024 [facility] DATE CREATED AUTHOR AUTHOR'S ORGANIZ ATION 07/19/2024 [facility] DATE CREATED AUTHOR AUTHOR'S ORGANIZ ATION 08/28/2024 [facility] DATE CREATED AUTHOR AUTHOR'S ORGANIZ ATION 09/12/2024 [facility] DATE CREATED AUTHOR AUTHOR'S ORGANIZ ATION 10/20/2024 [facility] DATE CREATED AUTHOR AUTHOR'S ORGANIZ ATION 10/22/2024 [facility] DATE CREATED AUTHOR AUTHOR'S ORGANIZ ATION 11/06/2024 [facility] DATE CREATED AUTHOR AUTHOR'S ORGANIZ ATION 12/05/2024 [facility] DATE CREATED AUTHOR AUTHOR'S ORGANIZ ATION 12/13/2024 [facility] DATE CREATED AUTHOR AUTHOR'S ORGANIZ ATION 12/20/2024 [facility] DATE CREATED AUTHOR AUTHOR'S ORGANIZ ATION 12/27/2024 [facility] DATE CREATED AUTHOR AUTHOR'S ORGANIZ ATION 12/30/2024 [facility] Care Teams (unrecognized sec [...] September 11, 2023 End: September 11, 2023 Tearoom Host/Hostess Relationship Specialty Start Date End Date Miguelangel Mac MD [address] [place], [place] [id number] Referring Pain Management 01/29/24 Tearoom Host/Hostess Relationship Specialty Start Date End Date Miguelangel Mac MD [address] [place] [address] Referring Pain Management 01/29/24 Tearoom Host/Hostess Relationship Specialty Start Date End Date Miguelangel Mac MD [address] [place] [address] Referring Pain Management 01/29/24 Tearoom Host/Hostess Relationship Specialty Start Date End Date Miguelangel Mac MD [address] [place] [address] [address] [place] [address] Referring Pain Management 01/29/24 Tearoom Host/Hostess Relationship Specialty Start Date End Date Haider Hickman MD [address] [place] [address] PCP - General Family Medicine 03/26/24 Miguelangel Mac MD [address] [place] [address] Referring Pain Management 01/29/24 Tearoom Host/Hostess Relationship Specialty Start Date End Date Haider Hickman MD [address] [place] [address] PCP - General Family Medicine 03/26/24 Miguelangel Mac MD [address] [place] [address] Referring Pain Management 01/29/24 Tearoom Host/Hostess Relationship Specialty Start Date End Date Haider Hickman MD [address] [place] [address] PCP - General Family Medicine 03/26/24 Miguelangel Mac MD [address] [place] [address] Referring Pain Management 01/29/24 Tearoom Host/Hostess Relationship Specialty Start Date End Date Haider Hickman MD [address] [place] [address] PCP - General Family Medicine 03/26/24 Miguelangel Mac MD [address] [place] [address] Referring Pain Management 01/29/24 Tearoom Host/Hostess Relationship Specialty Start Date End Date Haider Hickman MD [address] [place], [place] [address], [place] [address] PCP - General Family Medicine 03/26/24 Miguelangel Mac MD [address] [place] [address], [place] [address] Referring Pain Management 01/29/24 Tearoom Host/Hostess Relationship Specialty Start Date End Date Haider Hickman MD [address] [place] [address] PCP - General Family Medicine 03/26/24 Miguelangel Mac MD [address] [place] [address], [place] [address] Referring Pain Management 01/29/24 Tearoom Host/Hostess Relationship Specialty Start Date End Date Haider Hickman MD [address] [facility] [place] [address] PCP - General Family Medicine 05/09/24 Tearoom Host/Hostess Relationship Specialty Start Date End Date Haider Hickman MD [address] [facility] [place] [address] PCP - General Family Medicine 05/09/24 Tearoom Host/Hostess Relationship Specialty Start Date End Date Haider Hickman MD [address] [facility] [place] [address] PCP - General Family Medicine 05/09/24 Tearoom Host/Hostess Relationship Specialty Start Date End Date Haider Hickman MD [address] [facility] [place] [address] PCP - General Family Medicine 05/09/24 Tearoom Host/Hostess Relationship Specialty Start Date End Date Haider Hickman MD [address] [facility] [place] [address] PCP - General Family Medicine 05/09/24 Tearoom Host/Hostess Relationship Specialty Start Date End Date Haider Hickman MD [address] [facility] [place] [address] PCP - General Family Medicine 03/26/24 Miguelangel Mac MD [address] [place] [address] 1 [address] [place] [address] Referring Pain Management 01/29/24 Tearoom Host/Hostess Relationship Specialty Start Date End Date Haider Hickman MD [address] [facility] [place] [address] PCP - General Family Medicine 05/09/24 Tearoom Host/Hostess Relationship Specialty Start Date End Date Haider Hickman MD [address] [facility] [place] [address] PCP - General Family Medicine 05/09/24 Tearoom Host/Hostess Relationship Specialty Start Date End Date Haider Hickman MD [address] [facility] [place] [address] PCP - General Family Medicine 05/09/24 Tearoom Host/Hostess Relationship Specialty Start Date End Date Haider Hickman MD [address] [facility] [place] [address] PCP - General Family Medicine 05/09/24 Tearoom Host/Hostess Relationship Specialty Start Date End Date Haider Hickman MD [address] [facility] [place] [address] PCP - General Family Medicine 05/09/24 Tearoom Host/Hostess Relationship Specialty Start Date End Date Haider Hickman MD [address] [facility] [place] [address] PCP - General Family Medicine 05/09/24 Tearoom Host/Hostess Relationship Specialty Start Date End Date Haider Hickman MD [address] [facility] [place] [address] PCP - General Family Medicine 05/09/24 Tearoom Host/Hostess Relationship Specialty Start Date End Date Haider Hickman MD [address] [facility] [place] [address] PCP - General Family Medicine 05/09/24 Tearoom Host/Hostess Relationship Specialty Start Date End Date Haider Hickman MD [address] [facility] [place] [address] PCP - General Family Medicine 05/09/24 Tearoom Host/Hostess Relationship Specialty Start Date End Date Haider Hickman MD [address] [facility] [place] [address] PCP - General Family Medicine 05/09/24 Tearoom Host/Hostess Relationship Specialty Start Date End Date Haider Hickman MD [address] [facility] [place] [address] PCP - General Family Medicine 05/09/24 Goals [...] or prosecute any alcohol or drug abuse patient.[facility] HospitalIn the event this information is protected by the Federal Confidentiality of Alcohol and Drug Abuse Patient Records regulations: The Federal rules restrict any use of the information to criminally investigate or prosecute any alcohol or drug abuse patient.[facility]In the event this information is protected by the Federal Confidentiality of Alcohol and Drug Abuse Patient Records regulations: The Federal rules restrict any use of the information to criminally investigate or prosecute any alcohol or drug abuse patient.[facility]In the event this information is protected by the Federal Confidentiality of Alcohol and Drug Abuse Patient Records regulations: The Federal rules restrict any use of the information to criminally investigate or prosecute any alcohol or drug abuse patient.[facility]In the event this information is protected by the Federal Confidentiality of Alcohol and Drug Abuse Patient Records regulations: The Federal rules restrict any use of the information to criminally investigate or prosecute any alcohol or drug abuse patient.[facility]In the event this information is protected by the Federal Confidentiality of Alcohol and Drug Abuse Patient Records regulations: The Federal rules restrict any use of the information to criminally investigate or prosecute any alcohol or drug abuse patient.[facility]In the event this information is protected by the Federal Confidentiality of Alcohol and Drug Abuse Patient Records regulations: The Federal rules restrict any use of the information to criminally investigate or prosecute any alcohol or drug abuse patient.[facility]In the event this information is protected by the Federal Confidentiality of Alcohol and Drug Abuse Patient Records regulations: The Federal rules restrict any use of the information to criminally investigate or prosecute any alcohol or drug abuse patient.[facility]In the event this information is protected by the Federal Confidentiality of Alcohol and Drug Abuse Patient Records regulations: The Federal rules restrict any use of the information to criminally investigate or prosecute any alcohol or drug abuse patient.[facility] HospitalIn the event this information is protected by the Federal Confidentiality of Alcohol and Drug Abuse Patient Records regulations: The Federal rules restrict any use of the information to criminally investigate or prosecute any alcohol or drug abuse patient.[facility]In the event this information is protected by the Federal Confidentiality of Alcohol and Drug Abuse Patient Records regulations: The Federal rules restrict any use of the information to criminally investigate or prosecute any alcohol or drug abuse patient.[facility] HospitalIn the event this information is protected by the Federal Confidentiality of Alcohol and Drug Abuse Patient Records regulations: The Federal rules restrict any use of the information to criminally investigate or prosecute any alcohol or drug abuse patient.[facility] FOR RECORDS PERTAINING TO PATIENTS WHO [...] BE BASED ON THE PRIMARY CLINICAL RECORDS. [facility] [employer]. provides no warranty or guarantee of the accuracy or completeness of information in this document.
[2024-12-31 10:48] LABS: Anion Gap 13.9; BUN Creatinine Ratio 17.8; Calcium 9.3 mg/dL (8.5-10.1); Carbon Dioxide 28.9 mmol/L (21.0-32.0); Chloride 102 mmol/L (98-107); Estimated GFR (African America 47 (>=60 mL/min/1.73m^2); Estimated GFR (Non-African Ame 38 (>=60 mL/min/1.73m^2); Glucose 167 mg/dL (74-106); Potassium 3.8 mmol/L (3.5-5.1); Sodium 141 mmol/L (136-145)
== END 2024-12-31 09:27 | disposition home or self-care (01) ==
LOC: LAB 09:27
PROVIDERS: PCP Family Medicine; Visit Provider Internal Medicine Cardiovascular Disease
DX: R06.09 Other forms of dyspnea (principal)
CPT/HCPCS: 36415; 80048; 83880

== ENCOUNTER 2025-01-13 13:22 | Outpatient (OUT) | payer MEDICARE, OTHER, SELFPAY ==
--- OUTSIDE RECORDS SUMMARY | 2025-01-13 13:44 | XMS_ITS | CCD ---
Author Organization [facility] Care Team Providers Care Stenotype Machine Operator Name Role Phone Morgan Kunz Unavailable Aldo [...] Provider MD Scarlet Johnson Primary Care Provider [phone] MD Eligio Soni Attending Provider MD Scarlet Johnson Primary Care Provider [phone] MD Daniel Everett Attending Provider Eligio Soni Admitting UnavailEligio Patel Attending UnavailScarlet Valerio Primary Care Unavailable Daniel Everett Admitting Unavailable Daniel Everett Attending Unavailable Scarlet Johnson Primary Care Unavailable Terry Kelley Attending Unavailable Scarlet Johnson Primary Care Unavailable Terry Kelley Admitting Unavailable Bubba SCHUSTER, Andrius Unavailable [phone] Haider Hickman Attending Unavailable Haider Hickman Admitting [...] Referring Unavailable COOK, Araceli P Admitting Unavailable COOKAraceli P Attending Unavailable COOK, Araceli P Attending Unavailable COOKAraceli P Attending Unavailable Araceli BERMUDEZ P Attending Unavailable Haider Hickman. Attending Unavailable Haider Hickman Attending Unavailable Haider Hickman MD Primary Care Provider MORGAN TRINIDAD Attending Unavailable HAIDER HICKMAN Primary Care Unavailable MIJATOPHILIPP, DESIMIR Referring Unavailable HAIDER HICKMAN Primary Care Unavailable MEKHAILHERBERTH A Referring Unavailable MIJATOVIC, DESIMIR Attending Unavailable MEKHERBERTH MEYERS A Attending Unavailable FRANCOISE SINGLETARY Attending Unavailable HAIDER HICKMAN Primary Care Unavailable MIJATOVIC, DESIMIR Referring Unavailable MIJATOPHILIPP, DESIMIR Attending Unavailable MEKHERBERTH MEYERS A Attending Unavailable HERBERTH ARAUJO Admitting Unavailable MORGAN TRINIDAD Referring Unavailable HAIDER HICKMAN Primary Care Unavailable BRITNEY HYDE Attending Unavailable Haider Hickman Attending Unavailable DAVID ACOSTA Attending Unavailable Haider Hickman Attending Unavailable Haider Hickman Attending Unavailable Haider Hickman Attending Unavailable Haider Hickman Attending Unavailable Hiader Hickman Attending Unavailable Haider Hickman Referring Unavailable Haider Hickman Attending Unavailable Haider Hickman Admitting Unavailable Dolce, Kajal R Attending Unavailable DolceGuzmanKajal R Attending Unavailable Dolce Kajal R Attending Unavailable REFERRAL, SELF Referring Unavailable Araceli BERMUDEZ Attending Unavailable BASSAM AGUILAR Attending Unavailable APLING, CHELLE Blank Attending Unavailable APLING, CHELLE Blank Referring Unavailable PATRICIA MCPHERSON Attending Unavailable BROWNBASSAM Attending Unavailable BROWNBASSAM Attending Unavailable APLINGCHELLE Attending Unavailable APLING, CHELLE Blank Attending Unavailable BROWNBASSAM Attending Unavailable DOLCESHYAM Attending Unavailable DOLCESHYAM Referring Unavailable DOLCE, KAJAL R Attending Unavailable APLING, CHELLE B Attending Unavailable DOLCE, SHYAM Stoner Attending Unavailable MARIA GARLEN Attending Unavailable DOLCE, SHYAM Stoner Attending Unavailable DOLCE, SHYAM Stoner Attending Unavailable KHAI HEARD Attending Unavailable ARLEN SANCHEZ Referring Unavailable BASSAM AGUILAR Attending Unavailable MATTHEW MAY Attending Unavailable HAIDER HICKMAN Referring Unavailable BROWNBASSAM Attending Unavailable Haider Hickman Attending Unavailable Haider [...] Unava ilable BRITTNY JASMINE Attending Unava ilable Haider Hickman Attending Unavailable Nanette Barajas Attending Unavailable Haider Hickman Attending Unavailable Haider Hickman Attending Unavailable Tomi Maria Talal Attending Unavaila ble Tomi Maria Talal Attending Unavaila ble Haider Hickman Admitting Unavailable Haider Hickman Attending Unavailable SarminTomi gerber Taladonis Attending Unavaila ble Sarmini, Krishna Talal Admitting Unavaila ble SarminiHajaKrishna Talal Referring Unavaila ble Sarmini, Krishna Talal Attending Unavaila ble Sarminzabrina, Krishna Talal Admitting Unavaila ble Haider Hickman Attending Unavailable Allergies Allergy Classification Reported Allergen(s) Allergy Type Date of Onset Reaction(s) Facility (20 sources) Cefuroxime; Translations: [cefuroxime] Drug Allergy 06-09-20 Unknown [facility] (20 sources) celecoxib; Translations: [CELECOXIB] Drug Allergy 06-09-20 Unknown [facility] (20 sources) Diflunisal; Translations: [DIFLUNISAL] Drug Allergy 06-09-20 Unknown [facility] (20 sources) dulaglutide Drug Allergy 09-11-20 Unknown, g/i [facility] (20 sources) Ibuprofen Drug Allergy Unknown [facility] Other (20 sources) liraglutide; Translations: [LIRAGLUTIDE] Drug Allergy 11-25-19 stomach upset [facility] (20 sources) metFORMIN; Translations: [metFORMIN] Drug Allergy 09-01-20 21 stomach upset [facility] (20 sources) Naproxen; Translations: [NAPROXEN] Drug Allergy 06-09-20 21 Unknown [facility] (20 sources) Sulindac; Translations: [Clinoril] Drug Allergy 07-10-20 15 Unknown [facility] (1 source) Cefuroxime Drug Allergy 07-13-20 16 [facility] (6 sources) celecoxib; Translations: [CeleBREX] Drug Allergy 07-10-20 15 [facility] (6 sources) liraglutide; Translations: [Victoza] Drug Allergy [facility] (1 source) metFORMIN Drug Allergy 06-15-20 17 [facility] (6 sources) Naproxen; Translations: [Naprosyn] Drug Allergy 07-10-20 15 [facility] (3 sources) NSAIDs; Translations: [NSAIDS (NON-STEROIDAL ANTI-INFLAMMATORY DRUG)] Drug allergy (disorder) 07-10-20 15 [facility] (6 sources) Povidone-Iodine; Translations: [Dolobid] Drug Allergy 07-10-20 15 [facility] (20 sources) Cephalosporins (Antibiotic); Translations: [Cephalosporins] Propensity to adverse reactions 05-29-20 18 Unknown Reaction [facility] (20 sources) Ibuprofen; Translations: [ibuprofen] Drug Allergy 09-11-20 Unknown [facility] (20 sources) Sulindac; Translations: [sulindac] Drug Allergy 06-09-20 21 Unknown [facility] (1 source) Cefuroxime Drug Allergy 09-11-20 [facility] (1 source) celecoxib Drug Allergy 09-11-20 [facility] (1 source) Diflunisal Drug Allergy 09-11-20 [facility] (1 source) dulaglutide Drug Allergy 09-11-20 [facility] (1 source) liraglutide Drug Allergy 09-11-20 [facility] (1 source) metFORMIN Drug Allergy 09-11-20 [facility] (1 source) Naproxen Drug Allergy 09-11-20 [facility] (12 sources) Non-steroidal anti-inflammatory agent Drug Intolerance 02-05-20 GI Upset [facility] (5 sources) Cefuroxime; Translations: [Cefuroxime Axetil] Drug Allergy [facility] (5 sources) dulaglutide; Translations: [Trulicity] Drug Allergy [facility] (5 sources) Niacin; Translations: [niacin] Drug Allergy [facility] (20 sources) NSAIDs; Translations: [NSAIDs] Propensity to adverse reactions (disorder) 07-23-20 Other [facility] (5 sources) rofecoxib; Translations: [Vioxx] Drug Allergy [facility] (20 sources) celecoxib Drug Allergy 05-18-20 Unknown [facility] (20 sources) Diflunisal Drug Allergy 06-09-20 Unknown [facility] (20 sources) dulaglutide Drug Allergy 05-18-20 Unknown [facility] (20 sources) liraglutide Drug Allergy 05-18-20 Unknown [facility] (20 sources) metFORMIN Drug Allergy 05-18-20 Unknown [facility] (20 sources) rofecoxib; Translations: [ROFECOXIB] Drug Allergy 06-09-20 Unknown [facility] Medications Current Medications Medication Drug [...] Start: 03-12-2023 take 2 tablets by mo [facility] at bedtime losartan (Cozaar) 50 MG [...] hydrochloride 10 mg oral tablet (20 sources) N-lnlrrk-B-aspartate Receptor Antagonist Start: 05-31-2024 End: 07-22-2024 take [...] DOSES NEEDED FOR CHEST PAIN 09/20/2023 Active [place] 1-Rmf-Pry-Fish Oil (Fish Oil) 1,000 mg (120 mg-180 mg) Capsule (2 sources) Start: [place] 8-Ktl-Dpn-Fish Oil (Fish Oil) 1,000 mg (120 mg-180 [...] 05/09/2023 Active take 2 tablets by mo [facility] every twenty-four hours Pioglitazone HCl 15 [...] Orally once a day Active FreeStyle Baylee Fishtail - (7 sources) FreeStyle [place]lee Fishtail - use with baylee sensor SQ daily [...] Coronary arteriosclerosis; Translations: [Atherosclerotic heart disease of [place] coronary artery without angina pectoris] Onset: 9 [...] shoulder] 07-23-2024 Chronic Other aftercare (1 source) long term care pharmacist (current) use of aspirin; Translations: [BINDERY MACHINE TENDER CURRENT USE OF ASPIRIN] Onset: 3 Episodic Other aftercare (1 source) Other penitentiary (current) drug therapy; Translations: [OTH BINDERY MACHINE TENDER CURRENT DRUG THERAPY] Onset: 3 Episodic Other aftercare (6 sources) Long-term current use of insulin; Translations: [custodial (current) use of insulin] Episodic Other aftercare (3 sources) custodial (current) use of insulin; Translations: [custodial (current) use of insulin] Onset: 3 Episodic [...] Test Name Value Interpretation Reference Range Facility Reminderson 01-02-2025 Reminders Reminders From: Concepcion Loaiza I To: Concepcion Loaiza I; Sent: 01/02/2025 08:18:36 EDT Show up: 01/06/2025 08:00:00 EDT Subject: Rehankdiff Reminder/Recall Addendum by Concepcion Loaiza I on January 02, 2025 08:18:14 [address] Placing reminder in chart. From: Candace SCHUSTER, Tomi Sheffield To: Concepcion Loaiza I; Sent: 01/01/2025 11:06:40 EDT Subject: General Message Caller Name: CHRISDONG BLACKMAN; Caller Number: H , M Please remind me next week to make sure to send rezdiffra or not for this patient [facility] Ambulatory Visit Summaryon 0 01-01-2025 Ambulatory Visit Summary Ambulatory Visit Summary DONG WHITMORE :1950 Visit Date:01/01/2025 Ambulatory Visit Instructions Your Diagnosis Fatty liver Calculus of gallbladder without cholecystitis without obstruction GERD (gastroesophageal reflux disease) Your Care Team Attending Physician - Tomi Maria MD Primary Care Physician - Haider Hickman [...] 30 mg Tab) potassium chloride (Potassium Chloride (Zpr-Czrz-Afb M20) 20 mEq oral tablet, extended release) [...] Stimulator. Discharge Vitals Heart Rate (Peripheral) 65 Blood Pressure 128/68 Height 66 in Height 168 cm Weight 261.027 lb Weight 118.4 kg BMI 41.95 What to do next Scheduled Follow-Up Appointments Monday 9:30 AM EDT With: Kristofer SCHUSTER, Haider Bee Where: [address] [address]24 8:00 AM EDT With: Where: [address] [address]- Monday 9:15 AM EDT With: AIDAN SCHUSTER, Araceli Treadwell Where: [facility] [address] [place], [address] [place] [address]- Medications What How Much When Why Instructions [...] stenosis Peripheral edema Handicap Yamilka, 5 years. Contact prescribing physician if questions or concerns Unchanged nitroglycerin (nitroglycerin 0.4 mg sublingual Tab) 1 Tablets Sublingual Every 5 minutes as needed for for chest pain Contact prescribing physician if questions or concerns Unchanged nitroglycerin (nitroglycerin 0.4 mg sublingual Tab) Contact (more content not included)... Normal [facility] Gastroenterology Office/Clin ic Noteon 01-01-2025 Gastroenterology Office/Clinic Note Gastroenterology Office/Clinic Note Chief Complaint Checkup HPI Staff Established patient is a(n) 74 year old male who presents today for a 1 month f/u. FibroScan unable to be obtained d/t body habitus. Any blood thinners? aspirin 81mg daily Any GLP-1 agonists? no Laboratory Results CMP A/G Ratio: 1.7 (09/09/24) AGAP: 12 mEq/L (09/09/24) Albumin Lvl: 4.3 gm/dL (09/09/24) Alk Phos: 73 Int._Unit/L (09/09/24) ALT: 23 Int._Unit/L (09/09/24) AST: 25 Int._Unit/L (09/09/24) Bili Total: 0.5 mg/dL (09/09/24) BUN: 28 mg/dL High (09/09/24) BUN/Creat Ratio: 22 High (09/09/24) Calcium Lvl: 9.2 mg/dL (09/09/24) Chloride: 108 mmol/L (09/09/24) CO2: 26 mmol/L (09/09/24) Creatinine: 1.3 mg/dL (09/09/24) Globulin: 2.5 gm/dL (09/09/24) Glucose Lvl: 137 mg/dL (09/09/24) Potassium Lvl: 4.7 mmol/L (09/09/24) Sodium Lvl: 141 mmol/L (09/09/24) Total Protein: 6.8 gm/dL (09/09/24) History of Present Illness Reviewed HPI collected by staff Review of Systems PHQ Score Initial Depression Screen Score: 0 SCORE All systems reviewed, negative; Except for above Physical Exam Vitals & Measurements HR: 65(Peripheral) BP: 128/68 HT: 168 cm HT: 66 in WT: 118.4 kg WT: 261.027 lb BMI: 41.95 No acute distress Assessment/Plan 1. Fatty liver (K76.0: Fatty (change of) liver, not elsewhere classified) Seen on US 11/02 Denies alcohol use Denies Fhx of liver disease Has diabetes, controlled, last A1C reportedly 6.4 FibroScan attempted, unable to obtain d/t body habitus. F results 11/2024 showed mid risk Plan - emphasized the importance of weight loss and recommended the Mediterranean diet as well as green Mediterranean diet - Avoid alcohol - advised 10% weight loss - regular exercise - Schedule Fibroscan to evaluate - Discussed Venkat, will verify that he is eligible 2. Calculus of gallbladder without cholecystitis without obstruction (K80.20: Calculus of gallbladder without cholecystitis without obstruction) Seen on US 11/02 3. GERD (gastroesophageal reflux disease) (K21.9: Gastro-esophageal reflux disease without esophagitis) I, Helena Gomez, personally scribed for Tomi Maria on 01/01/2025 10:53:45. . Documentation recorded by India Gomez, accurately [...] neuropathy Complex renal cyst Coronary arteriosclerosis in [place] artery Dizziness Dizziness and giddiness Erythema of [...] tunnel release, ESWL of kidney, Heel spur....., H (more content not included)... Normal [facility] Comment on above: Result Comment: Elec tronically Signed By: Candace SCHUSTER, Tomi Sheffield\.br\Date and Time Signed: 01/01/25 11:06 EDT\.br\Electronically Co-Signed By: Helena Gomez MA\.br\Date and Time Co-Signed: 01/01/25 10:59 EDT MR ELBOW RIGHT WITHOUT CONTR Ceferino 12-19-2024 [...] 20, 2024 8:22:19 AM EDT Transcribed by: KENDRICK SANDOVAL on MonDec 20, 2024 9:01:42 AM EDT Finalized by: AMELIE ALBRIGHT on MonDec 20, 2024 9:22:13 AM EDT [facility] Comment on above: Order Comment: PT/FA X Injury/Trauma or Illness?:Illness/Other How long have you had these symptoms (acute/chronic)?:Chronic Reason for exam?:Right elbow pain Type of Exam?:Initial Additional signs and symptoms?:n Office Visiton 12-18-2024 Follow-up visit [id number] ChrisDong blackman Boom 1950 M Date Provider Department Center 12/18/2024 [id number] Family History Problem Relation Age of Onset Coronary artery disease Other Diabetes Other Family Status - Relation Status Age at Other Level of Service:73[address] [place] OFFICE/OUTPATIENT ESTABLISHED MOD MDM 30 MIN Reason for Visit and Comments: Coronary Artery Disease [187] Hyperlipidemia [182] - Had routine labs with lipid panel in Oct 2024. Hypertension [487382] Pre-op Exam [[id number]] - Needs surgery clearance with Dr. Jasmine. Shortness of Breath [[id number]] - SOB worsening over the couple of months [facility] Lab Miscellaneous-LCon 12-06 Lab Miscellaneous COMMENT Invalid Interpretation Code [facility] Comment on above: Result Comment: Test Ordered: [id number] Enhanced Liver Fibrosis (ELF) ELF(TM) Score 11.00 [...] unitless numerical value. *Rohit SA, Josafat VW, Okjolie T, et al. Selonsertib for patients with bridging fibrosis or compensated cirrhosis due to SANTANA: Results from randomized phase III STELLAR trials. J Hepatol. 2020 Apr;73(1):26-39. Performed at: [facility] [address] [id number] PhD Faye Ring Performed By: #### 1 [id number] #### [facility] [address] [place] [address] Ambulatory Visit Summaryon 0 12-04-2024 Ambulatory Visit Summary Ambulatory Visit Summary DONG WHITMORE :1950 Visit Date:12/04/2024 Ambulatory Visit Instructions Your Diagnosis Injury of right elbow Right elbow pain BMI 40.0-44.9, adult Non-smoker Your Care Team Attending Physician - Nanette Do Primary Care Physician - Haider Hickman MD This Is Your Medications List [facility] Prescription (Eric Prather, 5 years.) acarbose (acarbose [...] 30 mg Tab) potassium chloride (Potassium Chloride (Xrt-Jdac-Him M20) 20 mEq oral tablet, extended release) [...] Appointments Monday 9:00 AM EST With: Where: [facility] Monday 9:45 AM EDT With: Candace SCHUSTER, Tomi Sheffield Where: [facility] [address] [facility] [place] [address]- Monday 10:00 AM EDT With: Kristofer SCHUSTER, Haider Bee Where: [address] [address]24 8:00 AM EDT With: Where: [address] [address]- Monday 9:15 AM EDT With: Araceli BREMUDEZ MD Where: [facility] [address], [address] [place] [address]- Medications What How Much When Why Instructions New methylPREDNISolone (Medrol 4 mg Tab) 1 Packets By Mouth As Directed Injury of right elbow Right elbow pain BMI 40.0-44.9, adult Non-smoker Duration: 6 Days as directed on package labeling Pickup at [facility]/pharmacy #[id number] Unchanged acarbose (acarbose 25 mg oral tablet) [...] omega-3 polyunsaturate (more content not included)... Normal [facility] Family Medicine Office/Clini c Noteon 12-04-2024 Family Medicine [...] x ray. pt prefers to go to [facility]. will call him with results. medrol [...] neuropathy Complex renal cyst Coronary arteriosclerosis in [place] artery Dizziness Dizziness and giddiness Erythema of [...] (12/05/2016), y (more content not included)... Normal [facility] Comment on above: Result Comment: Elec tronically Signed By: Nanette Do\chanda\Date and Time Signed: 12/04/24 14:24 EST Lab Miscellaneous-LCon 12-04 Test Code 036931 Invalid Interpretation Code [facility] Comment on above: Performed By: #### 1 [id number] #### [facility] [address] [place] [address] Test Name ELF Invalid Interpretation Code [facility] Comment on above: Performed By: #### 1 [id number] #### [facility] [address] [place] [address] Nursing Narrative Noteon Nursing Narrative Note Nursing Narrative Note Unable to obtain accurate fibroscan d/t body habitus. Normal [facility] Ambulatory Visit Summaryon 0 11-27-2024 Ambulatory Visit Summary Ambulatory Visit Summary CHRISDONG BLACKMAN Boom :1950 Visit Date:11/27/2024 Ambulatory Visit Instructions Your Diagnosis Fatty liver Calculus of gallbladder without cholecystitis without obstruction GERD (gastroesophageal reflux disease) Your Care Team Attending Physician - Candace SCHUSTER, Tomi Sheffield Primary Care Physician - Kristofer SCHUSTER, Haider Bee This Is Your Medications List Contact prescribing [...] 30 mg Tab) potassium chloride (Potassium Chloride (Cja-Berq-Kyz M20) 20 mEq oral tablet, extended release) [...] Appointments Monday 9:00 AM EST With: Where: [facility] Monday 10:00 AM EDT With: Kristofer SCHUSTER, Haider Bee Where: [address] [address]24 8:00 AM EDT With: Where: [address] [address]- Monday 9:15 AM EDT With: AIDAN SCHUSTER, Araceli Treadwell Where: [facility] [place] [address] [place], [address] [place] [address]- You Need to Complete the Following Lab Miscellaneous-LC, Not Specified, Routine collect, ELF, 11/27/24, Order for future visit, Lab Collect, Fatty liver, Print Label By Order Location, [id number] Medications What How Much When Why Instructions [...] body ma (more content not included)... Normal [facility] Gastroenterology Office/Clin ic Noteon 11-27-2024 Gastroenterology Office/Clinic [...] NO ACUTE CHANGES US RUQ 10/22/24 @ [facility]: IMPRESSION: 1. Cholelithiasis. 2. Mild fatty infiltration [...] 84.1 fL (12/29/23) Chloride: 108 mmol/L (09/09/24) [place] Absolute: 0.4 E9/L (12/29/23) CO2: 26 mmol/L (09/09/24) [place] Auto: 7.1 % (12/29/23) Creatinine: 1.3 mg/dL [...] neuropathy Complex renal cyst Coronary arteriosclerosis in [place] artery Dizziness Dizziness and giddiness Erythema of [...] urination Vitamin (more content not included)... Normal [facility] Comment on above: Result Comment: Elec tronically Signed By: Candace SCHUSTER, Tomi Sheffield\.br\Date and Time Signed: 11/27/24 10:32 EST\.br\Electronically Co-Signed [...] Hickman MD This Is Your Medications List [facility] Prescription (Handicap Yamilka, 5 years.) acarbose (acarbose [...] 30 mg Tab) potassium chloride (Potassium Chloride (Qhl-Xslv-Ouo M20) 20 mEq oral tablet, extended release) [...] EST With: Candace SCHUSTER, Tomi Sheffield Where: [facility] [address] [facility] [address] [place] [address]- Monday 10:00 AM EDT With: Kristofer SCHUSTER, Haider Bee Where: [address] [address]24 8:00 AM EDT With: Where: [address] [address]- Monday 9:15 AM EDT With: AIDAN SCHUSTER, Araceli Treadwell Where: [facility] [address], [address] [place] [address]- Medications What How Much When Why Instructions [...] 1.5 tab(s) Oral Daily Unchanged Misc Prescription (Eric Prather, 5 years.) [...] Every day Unchanged potassium chloride (Potassium Chloride (Tqk-Awyq-Ppk M20) 20 mEq oral tablet, extended release (more content not included)... Normal [facility] Family Medicine Office/Clini c Noteon 11-18-2024 Family [...] removal of the upper arm, which included jdgyodjkp-zg-guedxp mattress sutures. The area shows good signs [...] We reviewe (more content not included)... Normal [facility] Comment on above: Result Comment: Elec tronically Signed By: Haider Hickman MD\.br\Date and Time Signed: 11/18/24 09:32 EST Ambulatory Visit Summaryon 0 11-12-2024 Ambulatory Visit Summary Ambulatory Visit Summary DONG WHITMORE :1950 Visit Date:11/12/2024 Ambulatory Visit Instructions Your Diagnosis BMI 45.0-49.9, adult Obesity, morbid, BMI 40.0-49.9 Nonsmoker Your Care Team Attending Physician - Haider Hickman MD Primary Care Physician - Haider Hickman MD This Is Your Medications List [facility] Prescription (Eric Prather, 5 years.) acarbose (acarbose [...] 30 mg Tab) potassium chloride (Potassium Chloride (Wrl-Dunj-Wep M20) 20 mEq oral tablet, extended release) [...] Follow-Up Appointments Monday 9:00 AM EST With: Kristofer SCHUSTER, Haider Bee Where: [facility] [address] [address]- Monday 9:30 AM EST With: Candace SCHUSTER, Tomi Sheffield Where: [facility] [address] [facility] [facility] [address] [place] [address]- Monday 10:00 AM EDT With: Kristofer SCHUSTER, Haider Bee Where: [address] [address] 8:00 AM EDT With: Where: [address] [address]- Monday 9:15 AM EDT With: AIDAN SCHUSTER, Araceli Treadwell Where: [facility] [address], [address] [place] [address]- Medications What How Much When Why Instructions [...] potassium chlorid (more content not included)... Normal [facility] Family Medicine Office/Clini c Noteon 11-12-2024 Family Medicine Office/Clinic Note Family Medicine Office/Clinic Note Chief Complaint ER follow up The patient presents with dizziness in the morning and stiffness affecting mobility. HPI Staff Pt presents today for ER follow up. Hospital: [facility] Visit date: 11/09/2024 Symptoms the patient [...] symptoms persist, with continued evaluation by an wearing apparel shaker pending referral completion. 3. Weakness (R53.1: Weakness) [...] musculoskeletal nee (more content not included)... Normal [facility] Comment on above: Result Comment: Elec tronically Signed By: Haider Hickman MD\.br\Date and Time Signed: 11/12/24 12:08 EST Ambulatory Visit Summaryon 0 11-04-2024 Ambulatory Visit Summary Ambulatory Visit Summary DONG WHITMORE :1950 Visit Date:11/04/2024 Ambulatory Visit Instructions Your Diagnosis Coronary arteriosclerosis in [place] artery Mixed hyperlipidemia Acquired absence of second [...] Hickman MD This Is Your Medications List [facility] Prescription (Eric Prather, 5 years.) acarbose (acarbose [...] 30 mg Tab) potassium chloride (Potassium Chloride (Vat-Fzod-Qoo M20) 20 mEq oral tablet, extended release) [...] EDT With: Kristofer SCHUSTER, Haider Bee Where: [address] [address] 2024 8:00 AM EDT With: Where: [address] [address]- Monday 9:15 AM EDT With: AIDAN SCHUSTER, Araceli Treadwell Where: [facility] [address], [address] [place] [address]- Medications What How Much When Why Instructions [...] Every day Unchanged potassium chloride (Potassium Chloride (Pqj-Lcab-Jhu M20) 20 mEq oral tablet, ex (more content not included)... Normal [facility] Family Medicine Office/Clini c Noteon 11-04-2024 Family [...] and sporadic. The underlying coronary arteriosclerosis in [place] arteries, benign hypertension with chronic kidney disease, [...] cholelithiasis present Assessment/Plan 1. Coronary arteriosclerosis in [place] artery (I25.10: Atherosclerotic heart disease of [place] coronary artery without angina pectoris) Diet and exercise. No CP at this time. 2. Mixed hyperlipidemia (E78.2: Mixed hyperlipidemia) Continue on statins as before. 3. Long-term insulin use (Z79.4: custodial (current) use of insulin) Continue on Insulin. [...] an i (more content not included)... Normal [facility] Comment on above: Result Comment: Elec tronically Signed By: Kristofer SCHUSTER, Haider Bee\.br\Date and Time Signed: 11/04/24 11:42 EST U [facility] 10-24-2024 Albumin DL <= 20 mg/L (U) [Mass/Vol] 4.0 mg/dL High 0.0-1.9 [facility] Comment on above: Performed By: #### 1 [id number] ####[facility] [address] [place] [address] Ambulatory Visit Summaryon 0 10-15-2024 Ambulatory Visit [...] Hickman MD This Is Your Medications List [facility] Prescription (Eric Yamilka, 5 years.) acarbose (acarbose 25 mg [...] 30 mg Tab) potassium chloride (Potassium Chloride (Jtd-Vbwx-Hdk M20) 20 mEq oral tablet, extended release) [...] Appointments 2024 10:40 AM EST With: Where: [address] [address] 2024 10:30 AM EST With: Kristofer SCHUSTER, Haider Bee Where: [address] [address] 2024 8:00 AM EDT With: Where: [address] [address]- Monday 9:15 AM EDT With: AIDAN SCHUSTER, Araceli Treadwell Where: [facility] [address], [address] [place] [address]- Medications What How Much When Why Instructions [...] 1 Tablets (more content not included)... Normal [facility] Family Medicine Office/Clini c Noteon 10-15-2024 Family [...] Diff Comprehe (more content not included)... Normal [facility] Comment on above: Result Comment: Elec tronically Signed By: Kristofer SCHUSTER, Haider Bee\.br\Date and Time Signed: 10/15/24 13:10 EST CMPon 09-10-2024 Albumin [Mass/Vol] 4.3 g/dL Normal 3.3-5.0 [facility] Comment on above: Performed By: #### 2 [id number] #### [facility] [address] [place] [address] Albumin/Globulin (S) [Mass conc ratio] 1.7 Normal 1.1-2.2 [facility] Comment on above: Performed By: #### 2 [id number] #### [facility] [address] [place] [address] ALP [Catalytic activity/Vol] 73 Int._Unit/L Normal 21-98 [facility] Comment on above: Performed By: #### 2 [id number] #### [facility] [address] [place] [address] ALT No additional P-5'-P [Catalytic activity/Vol] 23 Int._Unit/L Normal 6-46 [facility] Comment on above: Performed By: #### 2 [id number] #### [facility] [address] [place] [address] Anion gap [Moles/Vol] 12 mmol/L Normal 6-16 [facility] Comment on above: Performed By: #### 2 367577 #### [facility] [address] [place] [address] AST [Catalytic activity/Vol] 25 Int._Unit/L Normal 5-43 [facility] Comment on above: Performed By: #### 2 560954 #### [facility] [address] [place] [address] Bilirubin [Mass/Vol] 0.5 mg/dL Normal 0.0-1.1 [facility] Comment on above: Performed By: #### 2 325093 #### [facility] [address] [place] [address] Calcium [Mass/Vol] 9.2 mg/dL Normal 8.9-11.1 [facility] Comment on above: Performed By: #### 2 [id number] #### [facility] [address] [place] [address] Chloride [Moles/Vol] 108 mmol/L Normal 101-111 [facility] Comment on above: Performed By: #### 2 887829 #### [facility] [address] [place] [address] CO2 [Moles/Vol] 26 mmol/L Normal 21-31 [facility] Comment on above: Performed By: #### 2 117210 #### [facility] [address] [place] [address] Creatinine [Mass/Vol] 1.3 mg/dL Normal 0.5-1.3 [facility] Comment on above: Performed By: #### 2 529348 #### [facility] [address] [place] [address] Globulin (S) [Mass/Vol] 2.5 g/dL Normal 1.4-4.0 [facility] Comment on above: Performed By: #### 2 915111 #### [facility] [address] [place] [address] Glucose [Mass/Vol] 137 mg/dL Normal 55-199 [facility] Comment on above: Performed By: #### 2 132759 #### [facility] [address] [place] [address] Potassium [Moles/Vol] 4.7 mmol/L Normal 3.5-5.3 [facility] Comment on above: Performed By: #### 2 045823 #### [facility] [address] [place] [address] Protein [Mass/Vol] 6.8 g/dL Normal 6.0-7.8 [facility] Comment on above: Performed By: #### 2 371750 #### [facility] [address] [place] [address] Sodium [Moles/Vol] 141 mmol/L Normal 135-145 [facility] Comment on above: Performed By: #### 2 015326 #### [facility] [address] [place] [address] Urea nitrogen [Mass/Vol] 28 mg/dL High 5-21 [facility] Comment on above: Performed By: #### 2 466357 #### [facility] [address] [place] [address] Urea nitrogen/Creatinine [Mass ratio] 22 No Units High 10-20 [facility] Comment on above: Performed By: #### 2 712744 #### [facility] [address] [place] [address] Magnesiumon 09-10-2024 Magnesium [Mass/Vol] 1.8 mg/dL Normal 1.3-2.4 [facility] Comment on above: Performed By: #### 2 046732 #### [facility] [address] [place] [address] eGFRon 09-10-2024 eGFR 57 mL/min/1.73 m2 Low >=59 [facility] Comment on above: Performed By: #### 1 [id number] #### [facility] [address] [place] [address] Family Medicine Office/Clini c Noteon 09-09-2024 Family [...] involvement and proprioceptive complications. Consider assessment at [facility] for balance and gait evaluation. [...] manage morbid obesity. Possible consultation with a attending physician for weight management strategies. Ordered: Body Mass [...] is fro (more content not included)... Normal [facility] Comment on above: Result Comment: Elec [...] at 6.25mg BID. Follow-up 2-3 months. [facility] Ambulatory Visit Summaryon 1 10-15-2023 [...] Hickman MD [facility] Pres[facility] (Eric Prather, 5 years.) acarbose (acarbose [...] 30 mg Tab) potassium chloride (Potassium Chloride (Emq-Kbeo-Dvo M20) 20 mEq oral tablet, extended release) [...] EST With: Kristofer SCHUSTER, Haider Bee Where: [address] 2024 8:00 AM EDT With: Where: [facility] [place] [address] [place] [address]- Monday 9:15 AM EDT With: AIDAN SCHUSTER, Araceli Treadwell Where: [facility] [address], [address] [place] [address]- Medications What How Much When Why Instructions [...] Every day Unchanged potassium chloride (Potassium Chloride (Bjr-Fgyn-Kzt M20) 20 mEq oral tablet, extended release) 1 Tablets By Mouth Every day Unchanged pregabalin (Lyrica 75 mg Cap) 1 Capsules By Mouth 2 times a day Unchanged simvastatin (simvastatin 40 mg Tab) 1 Tablets (more content not included)... Normal [facility] Family Medicine Office/Clini c Noteon [...] interactions b (more content not included)... Normal [facility] Comment on above: Result Comment: Elec tronically Signed By: Kristofer SCHUSTER, Haider Sandhu.cyrus\Date and Time Signed: 08/15/24 11:26 EST FRANCHESCAon 08-14-2024 CNOV Office Visit (NPRC21 ) DONG WHITMORE ([id number]) 1950 M Date Time Provider Department 08/14/24 10:00 AM CHIQUI ROBLES NPRC21 During your visit today, we recorded the following information about you: Pulse Respiration Blood pressure Weight 59/minute 16/minute 137/69 117.2 kg Claudia Chilel MD 08/14/2024 10:51 AM Signed [facility] [place] August 14, 2024 This is a face [...] Chiqui Robles MD 08/26/2024 4:34 PM Addendum [facility] STAFF PHYSICIAN NOTE OF PERSONAL [...] - psychotherapy was utilized during the visit. Atcg-lj-mdko time: 29711 (16-37 mins) actual time spend in psychotherapy 18 minutes Type of therapeutic intervention:Supportiv e Target symptoms: Pain coping skills and Acceptance and adapting Progress/Session notes:processing Interactive Complexity: None STAFF PHYSICIAN:: Chiqui Robles MD DATE of SERVICE: 08/14/2024 Referring Provider: CHIQUI ROBLES [[id number]] Allergies As of Date: 08/14/2024 Noted Allergy [...] [E66.813, E66.01, Z68.41] Order(s):PROVIDER ORDERED FOLLOW UP [[id number]] Order #: [id number]: 1 Prescriptions as of 08/26/2024 - pregabalin (LYRICA) 75 mg capsule Take 75 mg by mouth two times a day. - memantine (NAMENDA) (more content not included)... Normal [facility] Office Visiton 08-07-2024 Follow-up visit [id number] Dong Whitmore 1950 Date Provider Department Center 08/07/2024 [id number] Family History Problem Relation Age of Onset Coronary artery disease Other Diabetes Other Family Status - Relation Status Age at Other Level of Service:35271 [place] OFFICE/OUTPATIENT ESTABLISHED MOD MDM 30 MIN Reason for Visit and Comments: Hypertension [097245] - He brought BP log from home with him today. Readings are usually in the 130-140's systolic. Hyperlipidemia [182] Coronary Artery Disease [187] - Denies chest pain and SOB. Normal [facility] Ambulatory Visit Summaryon 1 Ambulatory Visit Summary [...] 30 mg Tab) potassium chloride (Potassium Chloride (Kwg-Cbwn-Dlg M20) 20 mEq oral tablet, extended release) [...] AM EST With: Haider Hickman MD Where: [address] [address]- Monday 3:30 PM EST With: Haider Hickman MD Where: [address] [address] 2024 8:00 AM EDT With: Where: [address] [id number]- Monday 9:15 AM EDT With: Araceli BERMUDEZ MD Where: [facility] [address], [address] [place] [address]- Someone Will Contact You Regarding These Appointments [facility] External Ambulatory Referral, Neurology, 08/01/24 12:15:00 EDT, Suicidal ideation Unspecified mononeuropathy of right lower limb BMI 40.0-44.9, adult Morbid obesity with body mass index (BMI) of 40.0 or higher Nonsmoker Medications What How Much When Why Instructions New pregabalin (Lyrica 75 mg Cap) 1 Capsules By Mouth 2 times a day Pickup at [facility]/pharmacy #5851 Changed tizanidine (tiZANidine 4 mg Tab) 4 [...] 1 Table (more content not included)... Normal [facility] Family Medicine Office/Clini c Noteon 08-01-2024 [...] E&M of Est. Patient High 40-54 Min 13114 [facility] External Ambulatory Referral Prolonged OV 15 min 60760 2. Unspecified mononeuropathy of right lower limb [...] E&M of Est. Patient High 40-54 Min 22600 [facility] External Ambulatory Referral Prolonged OV 15 min 67009 3. BMI 40.0-44.9, adult (Z68.41: Body mass index [BMI] 40.0-44.9, adult) Discussed the importance of lifestyle changes, including dietary modifications and physical activity, to manage BMI. Addressed the potential contributions of morbid obesity to peripheral neuropathic symptoms. Ordered: Body Mass Index (BMI) documented 3008F Current tobacco non-user 1036F Depression Screening Positive 3354F E&M of Est. Patient High 40-54 Min 09497 Fall Risk Screen 2 or more w/injury 1100F [facility] External (more content not included)... Normal [facility] Comment on above: Result Comment: Elec [...] other machine again): L sitting 175/112 Normal [facility] Telephoneon 07-23-2024 Telephone [id number] Dong Whitmore 1950 M Date Provider Department Center 07/23/2024 AaliyahBRITNEY MURPHY LETICIA Marinoevue [facility] Family History Problem Relation Age of Onset Coronary artery disease Other Diabetes Other Family Status - Relation Status Age at Other Normal [facility] Office Visiton 07-19-2024 Follow-up visit [id number] ChrisyehudaCarlosDong A 1950 M Date Provider Department Center 07/19/2024 [facility] Family History Problem Relation Age of Onset Coronary artery disease Other Diabetes Other Family Status - Relation Status Age at Other Level of Service:78310 [place] OFFICE/OUTPATIENT ESTABLISHED MOD MDM 30 MIN Normal [facility] Ambulatory Visit Summaryon 1 Ambulatory Visit Summary Ambulatory Visit Summary CHRISYEHUDADONG Boom :1950 Visit Date:07/17/2024 Ambulatory Visit Instructions [...] 30 mg Tab) potassium chloride (Potassium Chloride (Yfq-Jgsy-Eag M20) 20 mEq oral tablet, extended release) [...] PM EST With: Haider Hickman MD Where: [address] [address]- Monday 10:30 AM EST With: Araceli BERMUDEZ MD Where: [facility] [address] [place] [address] 2024 8:00 AM EDT With: Where: [address] [address]- Monday 9:15 AM EDT With: Araceli BERMUDEZ MD Where: [facility] [address], [address] [place] [address]- You Need to Schedule the Following Appointments Follow Up with AIDAN SCHUSTER, PADMA Briceño When: Where: [address] [facility] [address] [place] [address]- Medications What How Much When Why Instructions Unchanged sodium bicarbonate (sodium bicarbonate 650 mg Tab) 2 Tablets By Mouth 3 times a day Duration: 90 Days Pickup at [facility]/pharmacy #7643 Unchanged acarbose (acarbose 25 mg oral tablet) [...] years.) Se (more content not included)... Normal [facility] Reminderson 07-17-2024 Reminders Reminders From: Roya Álvarez To: PREM Bermudez; Sent: 07/17/2024 10:05:54 EDT Show up: 05/17/2025 10:05:00 EDT Subject: Renal US Due Date/Time: 05/17/2025 10:05:00 EDT Reminder Message Renal US to be done prior to 1 year appointment. [facility]. Order created today. Normal [facility] Urology Office/Clinic Noteon 07-17-2024 Urology Office/Clinic Note Urology Office/Clinic Note Chief Complaint follow up HPI Staff 73 yo male here for f/up with renal US. Previous dx: kidney stone, complex renal cyst, BPH w/ LUTS, impotence. Taking Sodium Bicarb 650mg tid. Renal US 10/31/23 [facility]. KUB 11/10/23 [facility] - no stones id'd. S/p cysto, R RPG, R ESWL 01/04/24. Renal US 01/24/24 [facility] - neg limited renal ultrasound. Renal [...] with voice recognition artificial intelligence software, specifically [employer], [employer] and or Dragon Ambient Experience. Substitutions may [...] RPG, R ESWL 01/04/24. Renal US 01/24/24 [facility] - neg limited renal ultrasound. Renal [...] MD, URL [address] [address]- Additional Instructions: 1 year w/ renal US Patient Education Dietary Guidelines to Help Prevent Kidney Stones I, Roya Álvarez, personally scribed for Dr. Bermudez on 07/17/2024 10:05:06 (more content not included)... Normal [facility] Comment on above: Result Comment: Elec tronically Signed By: Araceli BERMUDEZ MD\.br\Date and Time Signed: 07/17/24 10:09 EDT\.br\Electronically Co-Signed By: Roya Álvarez\.br\Date and Time Co-Signed: 07/17/24 10:05 EDT Office Visiton 06-26-2024 Follow-up visit [id number] Dong Whitmore 1950 M Date Provider Department Center 06/26/2024 [facility] Family History Problem Relation Age of Onset Coronary artery disease Other Diabetes Other Family Status - Relation Status Age at Other Level of Service:29801 [place] OFFICE/OUTPATIENT ESTABLISHED MOD MDM 30 MIN Reason for Visit and Comments: Coronary Artery Disease [187] Hypertension [254300] Normal [facility] XR Foot - right 3 Viewson Imaging Result: [facility] Radiology Study observation (narrative) [facility] No Panel Informationon 06-12 Chelle Brandon [...] and draped in the usual sterile fashion. [facility] Ambulatory Visit Summaryon 0 05-31-2024 Ambulatory Visit [...] Hickman MD. This Is Your Medications List [facility] Prescription (Eric Prather, 5 years.) acarbose (acarbose [...] 30 mg Tab) potassium chloride (Potassium Chloride (Qer-Rifk-Syi M20) 20 mEq oral tablet, extended release) [...] Araceli BERMUDEZ MD Where: [facility] [address], [address] [place] [address]- Monday 3:30 PM EST With: Haider Hickman MD Where: [address] [address]- Monday 10:30 AM EST With: Araceli BERMUDEZ MD Where: [facility] [address], [address] [place] [address]- 2024 8:00 AM EDT With: Where: [facility] Medicine [place] [id number]- Medications What How Much When Why Instructions [...] Unchanged nitrog (more content not included)... 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 Normal [facility] Comment on above: Result Comment: Elec [...] Hickman MD This Is Your Medications List [facility] Prescription (Eric Prather, 5 years.) acarbose (acarbose [...] 30 mg Tab) potassium chloride (Potassium Chloride (Big-Uwyw-Hgq M20) 20 mEq oral tablet, extended release) [...] With: Kajal Cam DPM Where: [facility] [place] Monday 9:15 AM EDT With: Araceli BERMUDEZ MD Where: [facility] [address], [address] [place] [address]- Monday 3:30 PM EST With: Haider Hickman MD Where: [facility] Family [address] [address]- Monday 10:30 AM EST With: AIDAN SCHUSTER, Araceli Treadwell Where: [facility] [place] [address], [address] [place] [address]- 2024 8:00 AM EDT With: Where: [address] [address]- Medications What How Much When Why Instructions New clindamycin (clindamycin 300 mg oral cap) 1 Capsules By Mouth 2 times a day Cellulitis of leg BMI 40.0-44.9, adult Non-smoker Class 3 severe obesity due to excess calories with body mass index (BMI) of 40.0 to 44.9 in adult Duration: 10 Days Pickup at [facility]/pharmacy #1712 Unchanged acarbose (acarbose 25 mg oral tablet) [...] Unchanged nitroglyce (more content not included)... Normal [facility] Family Medicine Office/Clini c Noteon 05-14-2024 [...] for MERS/COVID-19 : N/A Debra Bermudez Charanjit - 05/13/2024 9:39 EDT Medicare/Medicaid Summary Systolic [...] : Living will, Medical durable power of ip technology transactions attorney Organ Donation Consent : Yes Debra [...] Last Reviewed Dt/Tm: 05/13/2024 09:44:11 EDT Location: [facility] ; Anesthesia Minutes: 0 ; Procedure Name: [...] Dt/Tm: 05/13/2024 09:44:11 (more content not included)... [facility] Comment on above: Result Comment: Elec tronically Signed By: Haider Hickman MD.br\Date and Time Signed: 05/14/24 10:23 EDT\.br\Electronically Co-Signed By: Debra Bermudez.br\Date and Time Co-Signed: 05/13/24 13:04 EDT CNOVon 04-24-2024 CNOV Office Visit (NPRC21 ) DONG [id number]) 1950 M Date Time Provider Department 04/24/24 9:00 AM CHIQUI ROBLES NPRC21 During your visit today, we recorded the following information about you: Pulse Blood pressure Weight Height 61/minute 122/89 122.5 kg 1.702 m Parish Rios MD 04/24/2024 11:26 AM Signed [facility] [place] April 24, 2024 This is a face [...] Camacho Desimir, MD 04/24/2024 11:26 AM Signed [facility] STAFF PHYSICIAN NOTE OF PERSONAL [...] - psychotherapy was utilized during the visit. Cbxk-vo-qzrn time: 27683 (16-37 mins) actual time spend in psychotherapy [...] which included preparing to see the patient, aodj-mc-dmnq patient care, completing clinical documentation, performing a medically appropriate examination, and counseling and educating the patient/family/caregiv er. As noted, the patient's clinical situation is complex and serious with significant comorbidity of pain and functional limitations. This requires higher levels of time, intensity, and expense with longitudinal care and support. STAFF PHYSICIAN:: Chiqui Robles MD DATE of SERVICE: 04/24/2024 Referring Provider: HERBERTH ARAUJO [[id number]] Allergies As of Date: 04/24/2024 Noted Allergy [...] TO [facility] ([facility]IC PAIN) [7791312] Order #: [id number]: 1 PAIN RECOVERY FOLLOW UP ORDER [[id number]] Order #: [id number]: 1 FUTURE PROVIDER ORDERED FOLLOW UP [[id number]] Order #: [id number]: 1 FUTURE memantine (NAMENDA) 5 mg tabletTake 1 tablet by mouth once daily.Disp: 30 tabletRfl: 3 CONSULT TO [facility] FOR CHRONIC PAIN [9044] Order #: [id number]: 1 FUTURE Prescriptions as of 04/24/2024 - memantine (NAMENDA) 5 mg tablet Take 1 tablet by mouth once daily. - aspirin, enteric coated (ASPIRIN, ENTERIC COATED) 81 mg EC tablet Take 81 mg by mouth once daily. - fi (more content not included)... Normal [facility] BRIEF OP NOTon 04-03-2024 BRIEF OP NOT HNO ID: [id number] Author: CAPRICE DOWNING MD Service: Pain Management Author Type: Fellow Type: Brief Op Note Filed: 04/03/2024 10:35 Note Text: BRIEF OPERATIVE / PROCEDURE NOTE LOG ID: [id number] SURGERY/PROCEDURE DATE: 04/03/2024 PROCEDURE START TIME: 09 PROCEDURE END TIME: 1030 PRE-OP/PRE-PROCEDURE DIAGNOSIS: Chronic toe pain, right foot [M79.674, G89.29] Complex regional pain syndrome type II of right lower limb [G57.71] POST-OP/POST-PROCEDURE DIAGNOSIS: Chronic toe pain, right foot [M79.674, G89.29] Complex regional pain syndrome type II of right lower limb [G57.71] SURGEON(S)/PROCEDURALI ST(S) AND ALMOND BLANCHER OPERATOR(S): Surgeon(s) and Role: * Herberth Araujo MD, PhD - Primary * Caprice Downing MD No Additional Staff SURGERY/PROCEDURE(S): Attempted Right L4 and L5 Dorsal Root Ganglion Stimulator ANESTHESIA: Anxiolysis and Local anesthetic FINDINGS: None ESTIMATED BLOOD LOSS: Minimal SPECIMENS: None COMPLICATIONS: None Caprice Downing MD Pain Medicine Fellow April 03, 2024 Normal [facility] NURSING PROGon 04-03-2024 NURSING PROG HNO ID: [id number] Author: CAYETANO ROSALES RN Service: Nursing Author Type: Registered Nurse Type: Nursing Progress Note Filed: 04/08/2024 15:32 Note Text: Summary: Follow up phone call Follow up phone call made regarding outcome of procedure. No answer voicemail left - The patient was instructed to call [phone] with the percentage of pain relief and what activities have improved. VUELOGIC message also sent. [facility] NURSING PROG HNO ID: [id number] Author: SURINDER LARES RN Service: Nursing Author Type: Registered Nurse Type: Nursing Progress Note Filed: 04/09/2024 10:09 Note Text: Summary: Post Procedure Call Patient left voice mail. Team was unable to finish procedure due to patient was unable to stay still. No pain relief noted. Surinder Lares RN April 09, 2024 [facility] NURSING PROG HNO ID: [id number] Author: EMILEE HYDE RN Service: ? Author Type: Registered Nurse Type: Nursing Progress Note Filed: 04/03/2024 10:45 Note Text: Dr. Marian Downing (fellow) discusses reason why procedure was aborted today. Other options for pain management was discussed with patient and . [facility] OPERATIVE NOon 04-03-2024 OPERATIVE NO HNO ID: [id number] Author: HERBERTH ARAUJO MD, PhD Service: Pain Management Author Type: Physician Type: Operative Report Filed: 04/03/2024 20:14 Note Text: OPERATIVE/PROCEDURE REPORT : LOG ID: [id number] SURGERY/PROCEDURE DATE: 04/03/2024 INCISION/PROCEDURE START TIME: 9:59 [...] Dorsal Root Ganglion Stimulator SURGEON(S)/PROCEDURALI ST(S) AND ALMOND BLANCHER OPERATOR(S): Surgeon(s) and Role: * Herberth Araujo [...] ELECTRONIC SIGNATURE, Herberth Araujo MD, PhD [facility] HISTORY PHYSICALon HISTORY PHYSICAL HNO ID: [id number] Author: HERBERTH ARAUJO MD, PhD Service: Pain Management Author Type: Physician Type: H&P Filed: 04/03/2024 09:33 Note Text: PROCEDURE EVALUATION AND HISTORY AND PHYSICAL EXAM SUBJECTIVE: Dong Whitmore is a 73 year old man who presents to [facility] for Right L4 and L5 Dorsal Root Ganglion Stimulator Trial. This is his first (1) procedure. Focused Review of Systems: PAIN: Denies any contraindications to the procedure including coagulopathy, infection, recent cerebral/myocardial infarct, and hemodynamic instability. 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 Current Outpatient Medications [...] the patient's condition since the last C25 [facility] visit: No Provisional Diagnosis: Chronic toe pain, right foot [M79.674, G89.29] Complex regional pain syndrome type II of right lower limb [G57.71] Planned Procedure: Right L4 and L5 Dorsal Root Ganglion Stimulator Trial Caprice Downing MD Pain Medicine Fellow April 03, 2024 Herberth Araujo MD, PhD [facility] NURSING PROGon 04-01-2024 NURSING PROG HNO ID: [id number] Author: HELENA BAUTISTA RN Service: ? Author [...] 2 hours before the appointment. 2. A bus van driver must be present who can drive you home. If you are coming by medical transport, you must have a responsible person other than the wagon driver with you. 3. Do you take [...] or cannot make the appointment by calling [phone] (Option 2). [facility] Ambulatory Visit Summaryon 0 03-26-2024 Ambulatory [...] 40 mg Tab) potassium chloride (Potassium Chloride (Kkt-Ujsj-Vbf M20) 20 mEq oral tablet, extended release) [...] Appointments Monday 9:30 AM EDT With: Where: [facility] [place] Invalid Interpretation Code [address], [address] [place] [address]- \.br \ Monday 2:15 PM EST \.br\ With: Kristofer SCHUSTER, Haider Bee\.br\ Where: [facility] [place] [facility] Family Medicine Office/Clini c Noteon 03-26-2024 [...] years., Suppl (more content not included)... Normal [facility] Comment on above: Result Comment: Elec [...] numbers. This can be done either in [place] ([place] or metric measurements. Note that charts and online BMI calculators are available to help you find your BMI quickly and easily without having to do these calculations yourself. To calculate your BMI in [place] ([place] measurements: 1. Measure your weight in [...] for Disease Control and Prevention: www.cdc.gov ? [place] Heart Association: www.heart.org ? National Heart, Lung, and Blood [place]: www.nhlbi.nih.gov Summary ? Body mass index (BMI) is a number that is calculated from a person's weight and height. ? BMI may help estimate how much of a person's weight is composed of fat. BMI can help identify those who may be at higher risk for certain medical problems. ? BMI can be measured using [place] measurements or metric measurements. ? BMI charts are used to identify whether you are underweight, normal weight, overweight, or obese. This information is not intended to replace advice given to you by your health care provider. Make sure you discuss any questions you have with your health care provider. Document Revised: 06/17/2020 Document Reviewed: 04/24/2020 [employer] Patient Education ? 2022 [email or web address]. [facility] Sona 03-19-2024 HERRERAN Telephone (PAINMN) DONG WHITMORE ([id number]) 1950 M Date Time Provider Department 03/19/24 HERBERTH ARAUJO During your visit today, we recorded the following information about you: Emilee So, RN 03/19/2024 1:32 PM Signed Spoke with patient at request of president and chief executive officer as patient has questions about referral to infectious disease. Patient states that he spoke with his PCP, Dr. Hickman ([phone]) who spoke with Dr. Vega in Infectious [...] Status:Closed by EMILEE SO on 03/21/24 [facility] BMPon 03-08-2024 Anion gap [Moles/Vol] 14 mmol/L Normal 6-16 [facility] Comment on above: Performed By: #### 2 [id number] #### [facility] [address] [place] [address] Calcium [Mass/Vol] 9.4 mg/dL Normal 8.9-11.1 [facility] Comment on above: Performed By: #### 2 [id number] #### [facility] [address] [place] [address] Chloride [Moles/Vol] 104 mmol/L Normal 101-111 [facility] Comment on above: Performed By: #### 2 [id number] #### [facility] [address] [place] [address] CO2 [Moles/Vol] 24 mmol/L Normal 21-31 [facility] Comment on above: Performed By: #### 2 [id number] #### [facility] [address] [place] [address] Creatinine [Mass/Vol] 1.5 mg/dL High 0.5-1.3 [facility] Comment on above: Performed By: #### 2 [id number] #### [facility] [address] [place] [address] Glucose [Mass/Vol] 109 mg/dL Normal 55-199 [facility] Comment on above: Performed By: #### 2 [id number] #### [facility] [address] [place] [address] Potassium [Moles/Vol] 4.2 mmol/L Normal 3.5-5.3 [facility] Comment on above: Performed By: #### 2 379937 #### [facility] [address] [place] [address] Sodium [Moles/Vol] 138 mmol/L Normal 135-145 [facility] Comment on above: Performed By: #### 2 716975 #### [facility] [address] [place] [address] Urea nitrogen [Mass/Vol] 26 mg/dL High 5-21 [facility] Comment on above: Performed By: #### 2 353097 #### [facility] [address] [place] [address] Urea nitrogen/Creatinine [Mass ratio] 17 No Units Normal 10-20 [facility] Comment on above: Performed By: #### 2 [id number] #### [facility] [address] [place] [address] Consent for Treatmenton 02-08 Consent for Treatment [id number]#1.0 0TIFF Normal [facility] [id number] 03-08-2024 HbA1c (Bld) [Mass fraction] 6.5 % High <=5.9 [facility] Comment on above: Performed By: #### 7 [id number] #### [facility] [address] [place] [address] eGFRon 03-08-2024 eGFR 48 mL/min/1.73 m2 Low >=59 [facility] Comment on above: Order Comment: Order added by Discern Expert. Performed By: #### 1 [id number] #### [facility] [address] [place] [address] Ambulatory Visit Summaryon 0 03-07-2024 Ambulatory Visit [...] EDT With: Kristofer SCHUSTER, Haider Bee Where: [facility] Invalid Interpretation Code [address] [place] [address]- \.br \ Monday 9:15 AM EDT \.br\ With: AIDAN SCHUSTER, Araceli Treadwell\.br\ Where: [facility] Family Medicine Office/Clini c Noteon 03-07-2024 Family Medicine Office/Clinic Note HPI Staff Dong is a 73 year old male presenting for infection right leg referral to infectious disease and possible cultures called with info as she's not sure she'll be with her at this appt He was seen at [facility] and is having drg?? end of [...] Ordered: Basic Metabolic Panel Blood Culture Charcoal [facility] External Ambulatory Referral HgbA1c 2. Stage 3a chronic kidney disease (N18.31: Chronic kidney disease, stage 3a) - Will recheck today. - No concerns Ordered: Basic Metabolic Panel Blood Culture Charcoal [facility] External Ambulatory Referral HgbA1c 3. Stasis ulcer (I83.009: Varicose veins of unspecified lower extremity with ulcer of unspecified site) - Most likely the cause of number 1. - No ulcer today Ordered: Basic Metabolic Panel Blood Culture Charcoal [facility] External Ambulatory Referral HgbA1c 4. Morbid obesity with body mass index of 40.0-44.9 in adult (E66.01: Morbid (severe) obesity due to excess calories) - Diet and exercise advsied Ordered: Basic Metabolic Panel Blood Culture Charcoal Body Mass Index (BMI) documented 3008F Current tobacco non-user 1036F Depression Screening Negative 3352F [facility] External Ambulatory Referral HgbA1c [...] Ordered: Basic Metabolic Panel Blood Culture Charcoal [facility] External Ambulatory Referral HgbA1c [...] neuropathy Complex (more content not included)... Normal [facility] Comment on above: Result Comment: Elec tronically Signed By: Kristofer SCHUSTER, Haider Bee\.br\Date and Time Signed: 03/07/24 11:12 EDT Physician Referralon 024 Physician Referral [id number]#1. 00TIFF [facility] CNOVon 02-29-2024 CNOV Office Visit (PAINMN ) DONG WHITMORE ([id number]) 1950 M Date Time Provider Department 02/29/24 1:30 PM HERBERTH ARAUJO During your visit today, we recorded the following information about you: Temperature Pulse Blood pressure Weight 97.4 degrees 62/minute 138/73 122.5 kg Height 1.702 m Herberth Araujo MD, PhD 03/18/2024 7:05 PM Signed [facility] New Patient Consultation Referring Physician: SELF Chief Complaint: Right third toe pain SUBJECTIVE: Dong Whitmore is a 73 year old male with a pertinent past medical history of diabetes who presents to [facility] for the evaluation of right third toe pain. 15-year history of right third toe pain. He notes that over this time the pain has become increasingly severe has caused him significant discomfort and suffering. He has been to many specialists in the [facility]-over the course of the past 15 years, [...] 16th pe (more content not included)... [facility] 02-09-2024 Reminders - From: Vandana Hilton MA ( - Recalls Aidan) To: [facility] Recalls Aidan; Sent: 02/09/2024 13:50:30 EDT Show up: 06/09/2024 13:50:00 EDT Subject: renal us Reminder/Recall Addendum by Sharla Longoria on January 30, 2024 13:44:48 EDT From: Sharla Longoria ( - Clinical) To: [facility] Recalls Aidan; Sent: 01/30/2024 13:44:48 EDT Subject: FW: f/u after ESWL -Order for Renal US sent to Due Date/Time: 05/31/2024 13:44:00 EDT Caller Name: DONG WHITMORE; Caller Number: H , B [phone] Addendum by Sharla Longoria on January 30, 2024 13:43:59 EDT Called pt and advised him of below message. Pt voiced understanding. Pt scheduled for 07/17/24 w/ TERRIE. Will send to [facility] recall for TERRIE. Addendum by Araceli BERMUDEZ MD on January 29, 2024 18:12:03 EDT From: Araceli BERMUDEZ MD To: EU - Clinical; Sent: 01/29/2024 18:12:03 EDT Subject: RE: f/u after ESWL -Order for Renal US sent to Caller Name: DONG WHITMORE; Caller Number: H , B [phone] Please let the patient know that the [...] Renal US sent to Caller Name: CHRISDONG BLACKMAN; Caller Number: H , B [phone] Pt s/p R ESWL 01/03, to get [...] Date/Time: 01/25/2024 12:57:00 EDT Caller Name: DONG WHITMORE Boom; Caller Number: H , B [phone] Addendum by Nan Hodges MA on January 19, 2024 12:33:50 EDT From: Haughawout MA, Nan M (EU - Pending Results) To: EU - RUPERT/Cook Messages & Refills; Sent: 01/19/2024 12:33:50 EDT Subject: RE: f/u after ESWL -Order for Renal US sent to Due Date/Time: 01/25/2024 12:33:00 EDT Caller Name: DONG WHITMORE; Caller Number: H , B [phone] Scheduled 01/24/24 @ [facility] From: Elena Robbins To: EU - Pending Results; Sent: 01/08/2024 09:17:33 EDT Subject: f/u after ESWL -Order for Renal US sent to Due Date/Time: 01/17/2024 09:17:00 EDT Caller Name: DONG WHITMORE; Caller Number: H , B [phone] Pt is PO R ESWL 01/03 - he is to get renal US in 2 weeks and call for results if we don't contact him 1st - order sent to [facility] 02-06-2024 CNPN Telephone (PAMAVN) DONG WHITMORE ([id number]) 1950 Date Time Provider Department 02/06/24 FRANCOISE SINGLETARY During your visit today, we recorded the following information about you: Lela Hyatt, RN 02/06/2024 10:46 AM Signed ----- Message from Francoise Singletary MD sent at 02/05/2024 3:12 PM EDT ----- Do you mind calling him and giving him the number to schedule at [facility] [place] to discuss DRG? I'd suggest seeking an appointment with the following doctors who perform DRG implantation: Dr. Carlisle, Dr. Araujo, Dr. Dan, Dr. Moo Heard and Dr. Kamara may do DRG - I'm not sure. Thanks Lela! ----- Message ----- From: Livia Lester PA-C Sent: 02/05/2024 2:07 PM EDT To: Francoise Singletary MD No one on this side of [facility] that I know of does DRG so, we also send to [facility] I would just have Lela call [...] I know who do DRG are at [facility]. How do we refer him there? [...] Dan, Dr. Cortés Patient voiced understanding. Khadra Stien 02/12/2024 3:30 PM Signed Referring physician office [...] Encounter Status:Closed by LELA HYATT on 02/06/24 [facility] Ksenia 02-05-2024 OV Office Visit (DENICE ) DONG WHITMORE ([id number]) 1950 M Date Time Provider Department 02/05/24 11:30 AM FRANCOISE SINGLETARY During your visit today, we recorded the following information about you: Pulse Blood pressure Weight 80/minute 131/70 124.7 kg Francoise Singletary MD 02/05/2024 3:14 PM Signed [facility] Consultation Date: February 02, [...] The patient has seen other pain providers. [facility] Neurology OV 02/01/22 Assessment and [...] content not included)... Normal [facility] Renalon 01-26-2024 Renal Exam Date/Time: 01/24/2024 09:55 [...] Rosenbaum MD Transcribed by: GREGORIO Technologist: HW [facility] Consent for Treatmenton 01-07 Consent for Treatment [id number]#1.0 0TIFF [facility] Consultation Noteon 01-22-20 24 Consultation Note [id number]#1.0 0TIFF [facility] Consultation Note [id number]#1.0 0TIFF [facility] IntraOperative Documentson 0 01-08-2024 IntraOperative Documents [id number]#1.0 0TIFF [facility] Postoperative Documentson Postoperative Documents [id number]#1. 00TIFF [facility] Consent for Anesthesiaon Consent for Anesthesia [id number]#1. 00TIFF [facility] Discharge Instructionson Discharge Instructions [id number]#1. 00TIFF Normal [facility] IntraOperative Documentson 0 01-05-2024 IntraOperative Documents [id number]#1. 00TIFF Normal [facility] IntraOperative Documents [id number]#1. 00TIFF Normal [facility] Main [place] Intraoperative Recor don 01-05-2024 Main [place] Intraoperative Record IntraOp Document Type FT Summary Primary Physician: Araceli BERMUDEZ MD Finalized Date/Time: 01/05/24 12:41:56 Pt. Name: DONG WHITMORE/Sex: 1950 Male Med Rec #: [id number] Physician: Araceli BERMUDEZ MD Financial #: [id number] Pt. Type: A Room/Bed: [place] [address] Admit/Disch: 01/04/24 06:41:12 - 01/04/24 12:00:26 Institution: [...] Loja Role Performed Anesthesiologist Surgeon - Primary Telephonic Case Manager - Primary Associate Professor Of Art History Time In 01/04/24 09:07:00 01/04/24 09:07:00 01/04/24 [...] 01/04/24 09:55:45 General Comments: FINN BRAUN - [facility] STUDENT WORKING WITH DR. BERMUDEZ. SCRUBBED IN [...] Yes No Primary Surgeon AIDAN SCHUSTER, Araceli Garcia MD Start 01/04/24 09:20:00 01/04/24 09:20:00 Stop 01/04/24 [...] Outcomes Met? Yes Last Modified By: Sim Lign 01/04/24 09:24:52 Post-Care Text: The patient is free from signs and symptoms of infection Skin Assessment (Pre Procedure) FT Pre-Care Text: Implements protective measures to prevent skin/ tissue injury due to thermal or mechanical sources Evaluates for signs and symptoms of physical injury to skin and tissue Entry 1 Skin Integrity Intact, [place], Warm, and Skin (more content not included)... Normal [facility] Preoperative Documentson Preoperative Documents [id number]#1. 00TIFF Normal [facility] Progress Note-Physicianon Progress Note-Physician Patient: DONG [...] meets criteria ( To home ). Normal [facility] Comment on above: Result Comment: Elec [...] Problems Vitamin D deficiency / SNOMED CT 51070564 / Confirmed Urgency of urination / SNOMED CT 677264634 / Confirmed Type 2 diabetes mellitus with hyperglycemia, without long-term current use of insulin / ICD-10-CM E11.65 / Confirmed Type 2 diabetes mellitus with peripheral vascular disease / SNOMED CT 693463038 / Confirmed linked DM with PVD per OP CDI policy. Type 2 diabetes mellitus with stage 3a chronic kidney disease and hypertension / SNOMED CT 653305694 / Confirmed linked DM with CKD and HTN per OP CDI policy. 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 Shoulder pain / SNOMED CT 59506743 / Confirmed Renal mass / SNOMED CT 379178738 / Confirmed Psoriasis / SNOMED CT 49494477 / Confirmed PVD (peripheral vascular disease) / SNOMED CT 8502441053 / Confirmed OA (osteoarthritis) / SNOMED CT 0765114769 / Confirmed ULISES (obstructive sleep apnea) / SNOMED CT 885637951 / Confirmed SANTANA (nonalcoholic steatohepatitis) / SNOMED CT 7953245145 / Confirmed Lumbar spondylosis / SNOMED CT 849657471 / Confirmed noted in 10/16/2023 Pain Management Consult Note page 3. added per OP CDI policy. Impotence / SNOMED CT 7463894816 / Confirmed History of kidney stones / SNOMED CT 6526259637 / Confirmed Hiatal hernia / SNOMED CT 570897163 / Confirmed GERD (gastroesophageal reflux disease) / SNOMED CT 486154548 / Confirmed Nerves / SNOMED CT 1982348668 / Confirmed Primary hypertension / SNOMED CT 18926302 / Confirmed Anticoagulated / SNOMED CT 427759413 / Confirmed Complex renal cyst / SNOMED CT 7734338137 / Confirmed Chronic painful diabetic neuropathy / SNOMED CT 8893832040 / Confirmed noted in 10/16/2023 Pain Management Consult Note page 3. added per OP CDI policy. Pain, foot, right, chronic / SNOMED CT 9123796310 / Confirmed noted in 10/16/2023 Pain Management Consult Note page 3. added per OP CDI policy. Chronic bilateral low back pain without sciatica / SNOMED CT 543075162 / Confirmed Stage 3a chronic kidney disease / SNOMED CT 5891696620 / Confirmed Excessive dietary caloric intake / SNOMED CT 436525915 / Confirmed Morbid obesity with body mass index of 40.0-44.9 in adult / SNOMED CT 1235955080 / Confirmed BPH with obstruction/lower urinary tract symptoms / SNOMED CT 0164870017 / Confirmed Anxiety / SNOMED CT 52234670 / Confirmed Allergic rhinitis / SNOMED CT 589255284 / Confirmed Acquired absence of right great toe / SNOMED CT 024593586 / Confirmed added per 07/24/2023 query response. Resolved: Neuropathy / SNOMED CT 9565318598 idiopathic chronic Resolved: Hyperlipidemia / SNOMED CT 87823603 Resolved: Depressed mood / SNOMED CT 568928732 Resolved: Amputation of toe of right foot / ICD-10-CM S98.131A Resolved: BPH - benign prostatic hyperplasia / SNOMED CT 3887672310 Resolved: Anxiety disorder / SNOMED CT 023583179 Canceled: Microscopic hematuria / SNOMED CT 484023864 Canceled: Kidney stone / IMO 29647 Canceled: Hypertension / SNOMED CT 0845387409 Canceled: HLD (hyperlipidemia) / SNOMED CT 25396212 Canceled: Glycosuria / SNOMED CT 95337090 Canceled: Diabetes / SNOMED CT 612192352 Histories Procedure history: TOE AMPUTATION on 11/16/2018 at 68 Years. Cysto, Lt retrogrades, Lt stent, Ureteral cath, Lt ESWL ([id number]) on 06/07/2018 at 67 Years. Comments: 06/21/2019 14:34 EDT - Marilynn Zhang MA Cysto, Lt retr (more content not included)... Normal [facility] Comment on above: Result Comment: Elec [...] mGy = na DAP = na Normal [facility] Capillary Glucose POCon 12-08 Glucose [Mass/Vol] 133 mg/dL High 55-99 [facility] Comment on above: Performed By: #### 2 [id number] #### [facility] [address] [place] [address] Consent for Procedure/Surger yon 01-04-2024 Consent for Procedure/Surgery [id number]#1. 00TIFF Normal [facility] Consent for Treatmenton 12-08 Consent for Treatment [id number]#1.0 0TIFF Normal [facility] Discharge Instructionson Discharge Instructions DONG WHITMORE [...] Araceli BERMUDEZ MD Where: [facility] Invalid Interpretation Code [address] [place] [address]- \.br \ Monday 9:30 AM EDT \.br\ With:\.br\ Where: [facility] Comment on above: Result Comment: Elec tronically Signed By: Rakel Barney RN\.br\Date and Time Signed: 01/04/24 10:37 EDT H&P Updateon 01-04-2024 H&P Update [id number]#1. 00TIFF Normal [facility] Inpatient Patient Summaryon 01-04-2024 Inpatient Patient Summary [address] [address] [facility] Clinical Discharge Instructions PERSON INFORMATION Name: DONG WHITMORE [facility]#:[id number] PHYSICIANS Admitting Physician: Araceli BERMUDEZ MD Attending Physician: Araceli BERMUDEZ MD PCP: Haider Hickman MD Discharge Diagnosis: Comment: PATIENT EDUCATION INFORMATION Instructions: Lithotripsy, Care After Medication Leaflets: Follow up: With: Address: When: Araceli BERMUDEZ [address] [place] [address], [address] [address] Business (1) Comments: Please call my office [...] for follow-up With: Address: When: [place] [address] [facility] [address] Business (1) Type Location Start Finish State URO Office Visit [facility] 03/13/2024 9:45 AM 03/13/2024 10:00 AM Confirmed FM Open [facility] 03/26/2024 2:15 PM 03/26/2024 2:30 PM Confirmed FM Medicare Wellness Subsequent [facility] FM Ruth Ann 05/13/2024 9:30 AM 05/13/2024 10:30 AM Confirmed URO Office Visit [facility] EU Panfilo 11/06/2024 10:30 AM 11/06/2024 10:45 AM Confirmed MEDICATION LIST New Medications [id number], [address], [place] [id number], [phone] acetaminophen-hydrocod one (acetaminophen-hydroco done 325 mg-5 mg [...] Tablets By Mouth every day. Comment: Normal [facility] Main OR PACU I Recordon 12-08 Main OR PACU I Record PACU Phase I Document Type FT Summary Primary Physician: Araceli BERMUDEZ MD Finalized Date/Time: 01/04/24 10:17:21 Pt. Name: DONG WHITMORE Boom Ann/Sex: 1950 Male Med Rec #: [id number] Physician: Araceli BERMUDEZ MD Financial #: [id number] Pt. Type: A Room/Bed: [place] [address] Admit/Disch: 01/04/24 06:41:12 - Institution: Case Times [...] By: Sangita Ross RN 01/04/24 10:17 Normal [facility] Main OR PACU II [facility] Main OR PACU II Record PACU Phase II Document Type FT Summary Primary Physician: Araceli BERMUDEZ MD Finalized Date/Time: 01/04/24 12:01:26 Pt. Name: DONG WHITMORE/Sex: 1950 Male Med Rec #: [id number] Physician: Araceli BERMUDEZ MD Financial #: [id number] Pt. Type: A Room/Bed: [place] [address] Admit/Disch: 01/04/24 06:41:12 - 01/04/24 12:00:26 Institution: [...] Signed By: Rakel Barney RN 01/04/24 12:01 [facility] Main OR Preoperative Recordo n 01-04-2024 Main OR Preoperative Record PreOp Document Type FT Summary Primary Physician: Araceli BERMUDEZ MD Finalized Date/Time: 01/04/24 09:57:43 Pt. Name: HAIM DONGWEI Ann/Sex: 1950 Male Med Rec #: [id number] Physician: Araceli BERMUDEZ MD Financial #: [id number] Pt. Type: A Room/Bed: [place] [address] Admit/Disch: 01/04/24 06:41:12 - Institution: Case Times [...] Signed By: Sim Ling 01/04/24 09:57 Normal [facility] Monitor [place] 01-04-2024 Monitor Record [id number]#1. 00TIFF Normal [facility] Operative Reporton Operative Report Patient: DONG [...] placed per urethra and a well-lubricated 22 Bruneian is urethroscope with 30 degree lens then [...] pyelogram was then performed utilizing a 6 Bruneian open-ended ureteral catheter. The ureter is normal [...] removed and he was transferred [place] the [place] and then back to PACU in satisfactory condition, stable vital signs. Plan to be for discharge home with plans for a follow-up kidney ultrasound within the next couple weeks. Prescription sent to pharmacy for doxycycline for antibiotic prophylaxis as well as 7 pills of Derby 5/325. She was in agreement with the plan. . Estimated Blood Loss: 0 ml. Complications: None. Anesthesia type: General. Normal [facility] Comment on above: Result Comment: Elec tronically Signed By: Araceli BERMUDEZ MD\.br\Date and Time Signed: 01/04/24 10:09 EDT Outpatient Surgery Discharge Instructionon 01-04-2024 Outpatient Surgery Discharge Instruction [place] [id number] Patient Discharge Instructions PERSON INFORMATION Name: DONG [...] NEAREST EMERGENCY ROOM OR CALL 911 HAIM Gerber STEPHEN A, have received the attached patient education materials/instructions and have verbalized understanding: May we do a follow up call? Yes No I was present when discharge instructions were given Patient Signature Date Clinican/Nurse Signature ___ Date Follow up: With: Address: When: Araceli BERMUDEZ [facility] JAMES HU[place], [address], [address] [address] Business (1) Comments: Please call [...] for follow-up With: Address: When: GALLO HAQUE [address] [facility] [address] Business (1) Type Location Start Finish State URO Office Visit [facility] [place] 03/13/2024 9:45 AM 03/13/2024 10:00 AM Confirmed FM Open [facility] [place] 03/26/2024 2:15 PM 03/26/2024 2:30 PM Confirmed FM Medicare Wellness Subsequent [facility] [place] 05/13/2024 9:30 AM 05/13/2024 10:30 AM Confirmed URO Office Visit [facility] 11/06/2024 10:30 AM 11/06/2024 10:45 AM [...] to serve you. Thank you for choosing [facility] HERE ARE THE MEDICATION CHANGES THAT OCCURRED DURING YOUR HOSPITAL STAY New Medications [id number], [address], [place] [id number], [phone] acetaminophen-hydrocod one (acetaminophen-hydroco done 325 mg-5 mg [...] care p (more content not included)... Normal [facility] PT - Progress Noteson 2023 PT - Progress Notes [id number]#1.0 0TIFF [facility] Patient Education - Texton 0 01-04-2024 [...] these instructions at home: Medicines ? Take zgun-rph-kblmjep and prescription medicines only as told by [...] forming. ? (more content not included)... Normal [facility] Physician Referralon 024 Physician Referral [id number] 01 [id number]#1. 00TIFF Normal [facility] Physician Referral [id number]#1. 00TIFF Normal [facility] BMPon 12-29-2023 Anion gap [Moles/Vol] 13 mmol/L Normal 6-16 [facility] Comment on above: Performed By: #### 2 845980, 2402641, 77120315, 68903782 #### [facility] [address] [place] [address] Calcium [Mass/Vol] 9.1 mg/dL Normal 8.9-11.1 [facility] Comment on above: Performed By: #### 2 840079, 9143006, 85268677, 43471468 #### [facility] [address] [place] [address] Chloride [Moles/Vol] 106 mmol/L Normal 101-111 [facility] Comment on above: Performed By: #### 2 182416, 4074022, 39154404, 46691036 #### [facility] [address] [place] [address] CO2 [Moles/Vol] 25 mmol/L Normal 21-31 [facility] Comment on above: Performed By: #### 2 912224, 6202613, 68099633, 50878232 #### [facility] [address] [place] [address] Creatinine [Mass/Vol] 1.2 mg/dL Normal 0.5-1.3 [facility] Comment on above: Performed By: #### 2 738349, 0620312, 04872975, 40213710 #### [facility] [address] [place] [address] Glucose [Mass/Vol] 145 mg/dL Normal 55-199 [facility] Comment on above: Performed By: #### 2 598706, 7175302, 15995415, 74013007 #### [facility] [address] [place] [address] Potassium [Moles/Vol] 3.8 mmol/L Normal 3.5-5.3 [facility] Comment on above: Performed By: #### 2 023253, 7702037, 10913703, 53245436 #### [facility] [address] [place] [address] Sodium [Moles/Vol] 140 mmol/L Normal 135-145 [facility] Comment on above: Performed By: #### 2 083897, 8851681, 18530648, 24565684 #### [facility] [address] [place] [address] Urea nitrogen [Mass/Vol] 25 mg/dL High 5-21 [facility] Comment on above: Performed By: #### 2 377953, 4116921, 49029350, 30089026 #### [facility] [address] [place] [address] Urea nitrogen/Creatinine [Mass ratio] 21 No Units High 10-20 [facility] Comment on above: Performed By: #### 2 515922, 0289246, 62957825, 03666684 #### [facility] [address] [place] [address] CBC w/ Auto Diffon 4 Basophils/100 WBC (Bld) 0.5 % Normal 0.0-2.0 [facility] Comment on above: Performed By: #### 2 353326, 5902424, 24695561, 72521562 #### [facility] [address] [place] [address] Basophils/Leukocytes Auto (Bld) [Pure # fraction] 0.0 E9/L Normal 0.0-0.2 [facility] Comment on above: Performed By: #### 2 747552, 2561979, 56622129, 36431336 #### [facility] [address] [place] [address] Eosinophils (Bld) [#/Vol] 0.3 E9/L Normal 0.0-0.5 [facility] Comment on above: Performed By: #### 2 096402, 0373444, 56384889, 55112031 #### [facility] [address] [place] [address] Eosinophils/100 WBC (Bld) 5.7 % Normal 0.0-8.0 [facility] Comment on above: Performed By: #### 2 529532, 5475673, 94072279, 09608645 #### [facility] [address] [place] [address] Erythrocyte distribution width (RBC) [Ratio] 14.6 % High 10.9-14.2 [facility] Comment on above: Performed By: #### 2 598091, 7455718, 36600805, 42975068 #### [facility] [address] [place] [address] Hematocrit (Bld) [Volume fraction] 38.3 % Normal 37.7-49.0 [facility] Comment on above: Performed By: #### 2 696359, 9618791, 06545804, 38539983 #### [facility] [address] [place] [address] Hemoglobin (Bld) [Mass/Vol] 12.8 g/dL Low 13.5-17.5 [facility] Comment on above: Performed By: #### 2 380154, 8620394, 71080184, 53123390 #### [facility] [address] [place] [address] Lymphocytes (Bld) [#/Vol] 0.9 E9/L Low 1.0-4.0 [facility] Comment on above: Performed By: #### 2 079261, 4209729, 32231430, 95371213 #### [facility] [address] [place] [address] Lymphocytes/100 WBC (Bld) 17.1 % Normal 14.0-50.0 [facility] Comment on above: Performed By: #### 2 662988, 9945573, 69062173, 19580263 #### [facility] [address] [place] [address] MCH (RBC) [Entitic mass] 28.1 pg Normal 27.0-34.0 [facility] Comment on above: Performed By: #### 2 898600, 9789327, 40622654, 14702358 #### [facility] [address] [place] [address] MCHC (RBC) [Mass/Vol] 33.4 g/dL Normal 31.4-36.0 [facility] Comment on above: Performed By: #### 2 104592, 5196895, 90192286, 24945123 #### [facility] [address] [place] [address] MCV (RBC) [Entitic vol] 84.1 fL Normal 80.0-100.0 [facility] Comment on above: Performed By: #### 2 833673, 7376044, 88575862, 36553676 #### [facility] [address] [place] [address] Monocytes (Bld) [#/Vol] 0.4 E9/L Normal 0.2-1.0 [facility] Comment on above: Performed By: #### 2 635380, 8523448, 09899204, 97778340 #### [facility] [address] [place] [address] Neutrophils (Bld) [#/Vol] 3.9 E9/L Normal 2.0-7.5 [facility] Comment on above: Performed By: #### 2 532629, 9073057, 73272340, 24685058 #### [facility] [address] [place] [address] Neutrophils/100 WBC (Bld) 69.6 % Normal 36.0-75.0 [facility] Comment on above: Performed By: #### 2 091438, 5716004, 13922179, 75158550 #### [facility] [address] [place] [address] Platelet 178.0 E9/L Normal 150.0-500.0 [facility] Comment on above: Performed By: #### 2 648734, 3948301, 12083962, 72293908 #### [facility] [address] [place] [address] Platelet mean volume (Bld) [Entitic vol] 8.4 fL Normal 6.4-10.8 [facility] Comment on above: Performed By: #### 2 154806, 3271579, 46827894, 24203349 #### [facility] [address] [place] [address] RBC (Bld) [#/Vol] 4.6 E12/L Normal 4.3-5.9 [facility] Comment on above: Performed By: #### 2 245446, 7489777, 58178064, 88789185 #### [facility] [address] [place] [address] WBC corrected for nucl RBC Auto (Bld) [#/Vol] 5.5 E9/L Normal 4.0-11.0 [facility] Comment on above: Performed By: #### 2 663122, 1755241, 64626794, 89615465 #### [facility] [address] [place] [address] Consent for Treatmenton 12-08 Consent for Treatment [id number]#1.0 0TIFF Normal [facility] PT & PTTon 12-29-2023 aPTT Coag (PPP) [Time] 35.7 second(s) Normal 25.1-36.5 [facility] Comment on above: Result Comment: Para [...] the same coagulation reagent and instrumentation as [facility]. Currently there are no coagulation studies available worldwide for children to 14 days, and no normal ranges. Heparin therapeutic range (represented by Anti-Factor Xa activity of 0.2 - 0.4 U/mL) corresponds to PTT of 56.6 - 109.0 sec. Performed By: #### 2 062237, 2913013, 31306244, 76331816 #### [facility] [address] [place] [address] INR Coag (PPP) [Relative time] 1.23 {INR} Invalid Interpretation Code [facility] Comment on above: Result Comment: INR results are specifically intended to assess patients stabilized on long-term Anticoagulation therapy suggested INR?s ?Less Intensive Anticoagulation? 2.0 ? 3.0 Conventional Range 3.0 ? 4.5 Performed By: #### 2 535800, 2979344, 60198167, 83296576 #### [facility] [address] [place] [address] PT Coag (PPP) [Time] 13.8 second(s) High 9.4-12.5 [facility] Comment on above: Result Comment: 15 [...] the same coagulation reagent and instrumentation as [facility]. Currently there are no coagulation studies available worldwide for children to 14 days, and no normal ranges. Performed By: #### 2 974669, 7066747, 81925947, 06964077 #### [facility] [address] [place] [address] UA with Cult Rflxon 12-29-19 24 Color (U) Light-Yellow Normal Yellow [facility] Comment on above: Result Comment: Micr oscopic readings are only performed on those samples that meet specific criteria set forth by [facility]. Performed By: #### 4 [id number] ####[facility] [address] [place] [address] Glucose (U) [Mass/Vol] Negative Normal Negative [facility] Comment on above: Performed By: #### 4 [id number] ####[facility] [address] [place] [address] Ketones Ql (U) Negative Normal Negative [facility] Comment on above: Performed By: #### 4 [id number] ####[facility] [address] [place] [address] UA Blood Negative Normal Negative [facility] Comment on above: Performed By: #### 4 [id number] ####[facility] [address] [place] [place] [address] UA Clarity Clear Normal Clear [facility] Comment on above: Performed By: #### 4 [id number] ####[facility] [address] [place] [address] UA Leuk Est Negative Normal Negative [facility] Comment on above: Performed By: #### 4 [id number] ####[facility] [address] [place] [address] UA Nitrite Negative Normal Negative [facility] Comment on above: Performed By: #### 4 [id number] ####[facility] [address] [place] [place] [address] UA pH 6.5 Invalid Interpretation Code 5.0-9.0 [facility] Comment on above: Performed By: #### 4 [id number] ####[facility] [address] [place] [place] [address] UA Protein Trace Abnormal Negative [facility] Comment on above: Performed By: #### 4 [id number] ####[facility] [address] [place] [place] [address] UA Spec Grav 1.021 Invalid Interpretation Code 1.005-1.030 [facility] Comment on above: Performed By: #### 4 [id number] ####[facility] [address] [facility] [place] [address] UA Urobilinogen Negative Normal Negative [facility] Comment on above: Performed By: #### 4 822577569 ####[facility] [address] [place] [place] [address] Urobilinogen (U) [Mass/Vol] Negative Normal Negative [facility] Comment on above: Performed By: #### 4 [id number] ####[facility] [address] [place] [address] UA Spec Desc Clean Catch Normal [facility] Comment on above: Performed By: #### 4 [id number] ####[facility] [address] [place] [address] XR Chest 2 Viewson XR Chest 2 Views Exam Date/Time: 12/29/2023 09:35 EDT Reason for Exam: P.A.T. Report [facility] [phone] IMPRESSION: No acute infiltrates or effusions, no [...] mGy = na DAP = na Normal [facility] eGFRon 12-29-2023 eGFR 63 mL/min/1.73 m2 Normal >=59 [facility] Comment on above: Order Comment: Order added by Discern Expert. Performed By: #### 2 506822, 5905363, 39848283, 77216695 #### [facility] [address] [place] [address] Family Medicine Office/Clini c Noteon 12-28-2023 Family [...] (12/05/2016), ysto, (more content not included)... Normal [facility] Comment on above: Result Comment: Elec tronically Signed By: Haider Hickman MD\.br\Date and Time Signed: 12/28/23 09:51 EDT Physician Orderon 12-28-2023 Physician Order [id number]#1.0 0TIFF [facility] Ambulatory Visit Summaryon 0 12-26-2023 Ambulatory [...] SCHUSTER, Araceli Treadwell Where: [facility] Invalid Interpretation Code [address] [place] [address]- \.br \ Monday 9:30 AM EDT \.br\ With:\.br\ Where: [facility] Family Medicine [facility] CMPon 12-26-2023 Albumin [Mass/Vol] 4.2 g/dL Normal 3.3-5.0 [facility] Comment on above: Performed By: #### 2 991897, 3700206, 01399764, 2551620 ####[place] [address] [place] [address] Albumin/Globulin (S) [Mass conc ratio] 1.6 Normal 1.1-2.2 [facility] Comment on above: Performed By: #### 2 778637, 2744335, 99691740, 5492196 ####[facility] [address] [place] [address] ALP [Catalytic activity/Vol] 67 Int._Unit/L Normal 21-98 [facility] Comment on above: Performed By: #### 2 711274, 8433404, 19131914, 4818866 ####[facility] [address] [place] [address] ALT No additional P-5'-P [Catalytic activity/Vol] 20 Int._Unit/L Normal 6-46 [facility] Comment on above: Performed By: #### 2 878628, 3911872, 42567937, 9441357 ####[facility] [address] [place] [address] Anion gap [Moles/Vol] 10 mmol/L Normal 6-16 [facility] Comment on above: Performed By: #### 2 119138, 7992371, 81582516, 8231881 ####[facility] [address] [place] [address] AST [Catalytic activity/Vol] 21 Int._Unit/L Normal 5-43 [facility] Comment on above: Performed By: #### 2 697697, 2877480, 86097345, 7121341 ####[facility] [address] [place] [address] Bilirubin [Mass/Vol] 0.6 mg/dL Normal 0.0-1.1 [facility] Comment on above: Performed By: #### 2 143195, 4491469, 36021908, 5801232 ####[facility] [address] [place] [address] Calcium [Mass/Vol] 9.3 mg/dL Normal 8.9-11.1 [facility] Comment on above: Performed By: #### 2 319996, 4520028, 23683205, 4398291 ####[facility] [address] [place] [address] Chloride [Moles/Vol] 105 mmol/L Normal 101-111 [facility] Comment on above: Performed By: #### 2 870896, 1406167, 44002434, 0821961 ####[facility] [address] [place] [address] CO2 [Moles/Vol] 27 mmol/L Normal 21-31 [facility] Comment on above: Performed By: #### 2 009917, 4216437, 26808371, 4586600 ####[facility] [address] [place] [address] Creatinine [Mass/Vol] 1.3 mg/dL Normal 0.5-1.3 [facility] Comment on above: Performed By: #### 2 691620, 5479376, 01791974, 4119165 ####[address] [address] Globulin (S) [Mass/Vol] 2.6 g/dL Normal 1.4-4.0 [facility] Comment on above: Performed By: #### 2 198982, 8169968, 33167482, 4277784 ####[facility] [address] [place] [address] Glucose [Mass/Vol] 135 mg/dL Normal 55-199 [facility] Comment on above: Performed By: #### 2 606373, 0762097, 77653088, 5674414 ####[facility] [address] [place] [address] Potassium [Moles/Vol] 4.1 mmol/L Normal 3.5-5.3 [facility] Comment on above: Performed By: #### 2 643062, 9317040, 69932493, 6200030 ####[facility] [address] [place] [address] Protein [Mass/Vol] 6.8 g/dL Normal 6.0-7.8 [facility] Comment on above: Performed By: #### 2 023425, 6397424, 28075941, 2391198 ####[facility] [address] [address] Sodium [Moles/Vol] 138 mmol/L Normal 135-145 [facility] Comment on above: Performed By: #### 2 255162, 3596300, 29456481, 4945746 ####[facility] [address] [place] [address] Urea nitrogen [Mass/Vol] 27 mg/dL High 5-21 [facility] Comment on above: Performed By: #### 2 315028, 9776822, 30056944, 0195458 ####[facility] [address] [facility] [place] [address] Urea nitrogen/Creatinine [Mass ratio] 21 No Units High 10-20 [facility] Comment on above: Performed By: #### 2 314619, 1458241, 75148386, 6074278 ####[facility] [address] [place] [address] Lipid Panelon 12-26-2023 Cholesterol [Mass/Vol] 118 mg/dL Low 120-200 [facility] Comment on above: Performed By: #### 2 222388, 1267553, 29204557, 7713719 ####[facility] [address] [place] [address] Cholesterol in HDL [Mass/Vol] 33 mg/dL Invalid Interpretation Code [facility] Comment on above: Result Comment: '>= 60 LOW RISK' '<= 40 HIGH RISK' Performed By: #### 2 361037, 8883479, 21843400, 8695071 ####[facility] [address] [place] [address] Cholesterol in LDL [Mass/Vol] 57 mg/dL Normal <=129 [facility] Comment on above: Performed By: #### 2 242686, 8111375, 61231784, 7796456 ####[facility] [address] [address] Cholesterol in VLDL [Mass/Vol] 45 mg/dL High 7-40 [facility] Comment on above: Performed By: #### 2 704471, 9575341, 91472542, 9701653 ####[facility] [address] [place] [place] [address] Triglyceride [Mass/Vol] 225 mg/dL High <=149 [facility] Comment on above: Performed By: #### 2 342665, 0055652, 99694129, 4278918 ####[facility] [address] [place] [address] U Microalbon 12-26-2023 Albumin DL <= 20 mg/L (U) [Mass/Vol] 5.8 mg/dL High 0.0-1.9 [facility] Comment on above: Performed By: #### 1 483371520, 90847525 ####[facility] [address] [place] [address] U Protein/Creat Ratioon 12-07 Protein/Creatinine (U) [Ratio] 20.90 mg/gm Cr Normal .00-200.00 [facility] Comment on above: Performed By: #### 1 437189735, 46323707 ####[facility] [address] [place] [address] U Creatinine 99.4 mg/dL Invalid Interpretation Code [facility] Comment on above: Performed By: #### 1 912007933, 04934574 ####[facility] [address] [place] [place] [address] Ur Total Protein 20.8 mg/dL Invalid Interpretation Code [facility] Comment on above: Performed By: #### 1 [id number], 80688936 ####[facility] [address] [place] [address] Vit B12on 12-26-2023 Cobalamin (Vitamin B12) [Mass/Vol] 348 pg/mL Normal 50-1500 [facility] Comment on above: Performed By: #### 2 699582, 9799235, 43462270, 8247496 ####[facility] [address] [place] [address] eGFRon 12-26-2023 eGFR 57 mL/min/1.73 m2 Low >=59 [facility] Comment on above: Order Comment: Order added by Discern Expert. Performed By: #### 2 989354, 2935100, 78025847, 2569683 ####[facility] [address] [place] [address] Pre-Visit Planningon 024 Pre-Visit Planning - From: Ceci Yu To: Kristofer SCHUSTER, Haider Bee; Sent: 12/20/2023 09:56:36 EDT Subject: Pre-Visit Planning Due Date/Time: 12/20/2023 09:56:00 EDT Caller Name: DONG WHITMORE; Caller Number: H , B [phone] Hi Dr. Hickman. During a pre-visit planning [...] feel free to contact me at extension [phone]. Thank you! 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 Normal [address] [place] [address] Consultation Noteon 12-08-19 Consultation Note [id number]#1.0 0TIFF Normal [facility] RAD - MISCon 11-14-2023 RAD - MISC [id number]#1.0 0TIFF Normal [facility] RAD - Ultrasound Reporton RAD - Ultrasound Report [id number] 0TIFF Normal [facility] RAD - Ultrasound Report [id number]#1.0 0TIFF Normal [facility] RAD - MISCon 10-30-2023 RAD - MISC [id number]#1.00 TIFF Normal [facility] RAD - MRI Reporton RAD - MRI Report [id number]#1.00 TIFF Normal [facility] Screenson 10-20-2023 Screens [id number]#1. 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 8 oz (237 mL) of milk, xwkqwsn-gcatbnbubcge-e airy milk, and calcium-fortifiedfruit juice. Calcium-fortified means [...] Spinach (cooked), rhubarb, beets, sweet potatoes, and Hong [place]er chard. ? Peanuts. ? Potato chips, tanzanian fries, and baked potatoes with skin on. ? Nuts and nut products. ? Chocolate. ? If you regularly take a diuretic medicine, make sure to eat at least 1 or 2 servings of fruits or vegetables that are high in potassium each day. These include: ? Avocado. ? Banana. ? Giles, prune, carrot, or tomato juice. ? Baked [...] fish oil, or vitamin B6. ? Take bxyt-npn-yngoens and prescription medicines only as told by your health care provider. These include supplements. What foods sh (more content not included)... Normal [facility] Reminderson 10-18-2023 Reminders - From: Roya Álvarez To: PREM Bermudez; Sent: 10/18/2023 15:39:39 EST Show up: 08/18/2024 15:39:00 EST Subject: Renal US Due Date/Time: 09/17/2024 15:39:00 EST Pt needs scheduled for TERRIE prior to 1 year appointment. Being done at [facility]. order placed. Macario Byrd [facility] Urology Office/Clinic Noteon 10-18-2023 Urology [...] with voice recognition artificial intelligence software, specifically [employer], [employer] and or [employer]. Substitutions may have occurred due to the [...] Information AIDAN SCHUSTER, Araceli P, URL [address] [place], [place] [id number]- Additional Instructions: 1 year w/ renal US [...] benign pr (more content not included)... Normal [facility] Comment on above: Result Comment: Elec [...] recent A1c level, as measured by his lead sharepoint developer, was 6.9%. Review of Systems PHQ Score [...] with voice recognition artificial intelligence software, specifically [employer], [employer] and or [employer]. Substitutions may have occurred due to the inherent limitations of voice recognition and artificial intelligence software. ATTESTATION: Documentation services were performed after patient or guardian consented to allow [employer] to record this visit. HEMANTH petroleum supply specialist and provider reviewed before signing. HEMANTH: [...] under fluo (more content not included)... Normal [facility] Comment on above: Result Comment: Elec [...] Araceli BERMUDEZ MD Where: [facility] Invalid Interpretation Code [address] [place] [address]- \.br \ Monday 9:30 AM EDT \.br\ With:\.br\ Where: [facility] Consultation Noteon 09-18-20 23 Consultation Note [id number]#1.0 0TIFF Normal [facility] A1C with Estimated Average G luon 09-11-2023 HbA1c (Bld) [Mass fraction] 6.900 % High 4.3-5.6 % [employer] Other HbA1c (Bld) [Mass fraction] 151 mg/dL [facility] [employer] Other Glucose [Mass/Vol] 151 mg/dL Normal [facility] Comment on above: Order Comment: Reaso n for Exam 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 Performed By: #### A 1C [facility] eA #### [facility] [address] [place] [address] HbA1c (Bld) [Mass fraction] 6.9 % High 4.3-5.6 [facility] Comment on above: Order Comment: Reaso n for Exam Type 2 diabetes mellitus with diabetic chronic kidney diseas Result Comment: Incr eased risk for diabetes: 5.7 - 6.4 diabetes: >6.4 glycemic control for adults with diabetes: <7.0 Performed By: #### A 1C [facility] eA #### [facility] [address] [place] [address] Glucose - FINGER STICKon Glucose [Mass/Vol] 138 mg/dL [facility] [employer] Other Glucose mean value [Mass/vol ume] in Blood Estimated from glycated hemoglobinOrdered By: Aldo Middleton on 09-11-2023 Average glucose Estimated from glycated hemoglobin (Bld) [Mass/Vol] 151 mg/dL [facility] Hemoglobin A1c percentageOrd ered By: Aldo Middleton on 09-11-2023 HbA1c (Bld) [Mass fraction] 6.9 % 4.3-5.6 [facility] Comment on above: Increased risk for d iabetes: 5.7 - 6.4diabetes: >6.4glycemic control for adults with diabetes: <7.0 Consultation Noteon 09-06-20 Consultation Note [id number]#1.00 TIFF Normal [facility] Consultation Noteon 08-28-20 Consultation Note [id number]#1.00 TIFF Normal [facility] US UNI ankle/arm indiceson 1 10-24-2022 US UNI ankle/arm indices [facility] [place] [address] Ultrasound Report Signed Patient: Dong Whitmore MR#: [id number] : 1950 Acct:[id number] Age/Sex: 73 / M ADM Date: 08/24/23 Loc: [facility] Room: Type: [facility] Attending Dr: Eligio Soni MD Ordering [...] Eligio Soni MD08/24/2023 3:31 PM Dictation Location: [place] [address] Tech: Britney Sotelo Transcribed By: [facility] 08/24/23 1531 Dictated By: Eilgio Soni MD 08/24/23 1530 Signed By: 08/24/23 1531 Normal [facility] US venous duplex LE RTon US venous duplex LE RT [facility] [place] [address] Ultrasound Report Signed Patient: Dong Whitmore MR#: [id number] : 1950 Acct:[id number] Age/Sex: 73 / M ADM Date: 08/24/23 Loc: [facility] Room: Type: [facility] Attending Dr: Eligio Soni MD Ordering [...] Eligio Soni MD08/24/2023 3:31 PM Dictation Location: [place] [address] Tech: Coby Gibson Transcribed By: [facility] 08/24/23 153 Dictated By: Eligio Soni MD 08/24/23 153 Signed By: 08/24/23 1531 [facility] Ambulatory Visit Summaryon 1 10-21-2022 [...] EST With: Kristofer SCHUSTER, Haider Bee [facility] Invalid Interpretation Code [address], [address] [place] [address]- \.br \ Monday 9:30 AM EDT \.br\ With:\.br\ Where: [facility] Family Medicine Office/Clini c Noteon 08-21-2023 [...] kidney d (more content not included)... Normal [facility] Comment on above: Result Comment: Elec [...] oz glass (more content not included)... Normal [facility] Pre-Visit Planningon 023 Pre-Visit Planning - From: Ceci Yu To: Haider Hickman MD; Sent: 08/17/2023 10:44:28 EST Subject: Pre-Visit Planning Due Date/Time: 08/17/2023 10:44:00 EST Caller Name: HAIM DONG Nur; Caller Number: H , B [phone] [place] Dr. Hickman. During a pre-visit planning chart [...] feel free to contact me at extension [phone]. Thank you! Ceci Yu LPN Invalid Interpretation Code 272 [facility] Consultation Noteon 08-10-20 Consultation Note [id number]#1.0 0TIFF Normal [facility] Family Medicine Office/Clini c Noteon 07-26-2023 [...] continue to monitor along. Ordered: A1c POC 08616 Body Mass Index (BMI) documented 3008F Current [...] disease) - As above Ordered: A1c POC 22713 Body Mass Index (BMI) documented 3008F Current [...] stage 3a) - Stable Ordered: A1c POC 17480 Body Mass Index (BMI) documented 3008F Current [...] - No new issues Ordered: A1c POC 58869 Body Mass Index (BMI) documented 3008F Current [...] - BMI education given Ordered: A1c POC 99297 Body Mass Index (BMI) documented 3008F Current [...] last ye (more content not included)... Normal [facility] Comment on above: Result Comment: Elec [...] numbers. This can be done either in [place]er ([place] or metric measurements. Note that charts and online BMI calculators are available to help you find your BMI quickly and easily without having to do these calculations yourself. To calculate your BMI in [place] ([place] measurements: 1. Measure your weight in [...] for Disease Control and Prevention: www.cdc.gov ? [place] Heart Association: www.heart.org ? National Heart, Lung, and Blood [place]: www.nhlbi.nih.gov Summary ? Body mass index (BMI) is a number that is calculated from a person's weight and height. ? BMI may help estimate how much of a person's weight is composed of fat. BMI can help identify those who may be at higher risk for certain medical problems. ? BMI can be measured using [place] Islander measurements or metric measurements. ? BMI charts are used to identify whether you are underweight, normal weight, overweight, or obese. This information is not intended to replace advice given to you by your health care provider. Make sure you discuss any questions you have with your health care provider. Document Revised: 06/17/2020 Document Reviewed: 04/24/2020 [employer] Patient Education ? 2022 [email or web address]. [facility] Physician Referralon 023 Physician Referral [id number]. 00TIFF [facility] Pre-Visit Planningon 023 Pre-Visit Planning - From: Ceci Yu To: Kristofer SCHUSTER, Haider Bee; Sent: 07/24/2023 15:20:33 EDT Subject: Pre-Visit Planning Due Date/Time: 07/24/2023 15:20:00 EDT Caller Name: DONG WHITMORE; Caller Number: h , B [phone] [place] Dr. Hickman. During a pre-visit planning chart [...] feel free to contact me at extension [phone]. Thank you! Ceci Yu LPN From: Haider Hickman MD To: Ceci Yu; Sent: 07/24/2023 16:58:10 EDT Subject: RE: Pre-Visit Planning Caller Name: DONG WHITMORE; Caller Number: H , B [phone] OK to add the first one. Thank you Normal [address] [place] [address] A1C HEMOGLOBINon 02-14-2023 HbA1c (Bld) [Mass fraction] 7.6 % [employer] Other Glucose - FINGER STICKon Glucose [Mass/Vol] 215 mg/dL [employer] Other HbA1c (Bld) [Mass fraction]o n 02-14-2023 A1C HEMOGLOBIN [employer] Other ECHOCARDIO M/2D COMPLETEon 0 12-30-2022 ECHOCARDIO M/2D COMPLETE Patient: DONG WHITMORE Exam Date: 12/30/2022 : 1950 Gender:M Ordering : [facility] AP[facility]IO [facility] Admission #: [id number] Family : Order #: [id number] CLICK HERE TO VIEW EXAM ECHOCARDIOGRAM REPORT [...] Thibodeaux M.D. on 12/30/2022 at 18:49 Normal [facility] NM STRESS/REST MULTIon 12-29 NM STRESS/REST MULTI Patient: DONG WHITMORESuzie Exam Date: 12/29/2022 : 1950 Gender:M Ordering : [facility] APARICIO [facility] Admission #: [id number] Family : Order #: [id number] CLICK HERE TO VIEW EXAM RADIOLOGY REPORT [...] Morales M.D. on 12/30/2022 at 09:41 Normal [facility] US MAMI DOP LEG [...] by: MORGAN ROJO Date: 2022-12-08 16:15 Normal [facility] TSHon 11-25-2022 TSH 2.370 uIU/mL Normal 0.358-3.740 [facility] Comment on above: Performed By: #### T SH #### [facility] [address] [place] [address] Dr. Eli Jarvis BNPon 11-08-2022 Natriuretic peptide B (Bld) [Mass/Vol] 122.0 pg/mL Normal <=900.0 [facility] Comment on above: Performed By: #### C MP, BNP #### [facility] [address] [place], [place] [address] Dr. Eli Jarvis CBC AUTO DIFFon 11-08-2022 BASO # 0.1 103/ul Normal 0.0-0.1 [facility] Comment on above: Performed By: #### C BC ####[facility] [address] [place] [id number] Jarvis Basophils/100 WBC (Bld) 0.7 % Normal 0.2-2.0 [facility] Comment on above: Performed By: #### C BC ####[facility] [address] [place] [address]Dr. Eli Jarvis EO # 0.2 103/ul Normal 0.0-0.7 [facility] Comment on above: Performed By: #### C BC ####[facility] [address] [place] [address]DrSuzie Jarvis Eosinophils/100 WBC (Bld) 3.5 % Normal 0.9-7.0 [facility] Comment on above: Performed By: #### C BC ####[facility] [address] [place] [address]DrSuzie Jarvis Erythrocyte distribution width (RBC) [Ratio] 13.8 % Normal 11.0-15.0 [facility] Comment on above: Performed By: #### C BC ####[facility] [address] [place] [id number] Jarvis Hematocrit (Bld) [Volume fraction] 42.0 % Normal 42.0-54.0 [facility] Comment on above: Performed By: #### C BC ####[facility] [address] [place] [id number] Jarvis Hemoglobin (Bld) [Mass/Vol] 13.8 g/dL Critically low 14.0-18.0 [facility] Comment on above: Performed By: #### C BC ####[facility] [address] [place], [place] [address]DrSuzie Jarvis IG # 0.03 10e3/ul Normal 0.00-0.03 [facility] Comment on above: Performed By: #### C BC ####[facility] [address] [place] [id number] Jarvis IG % 0.4 % Normal 0.0-0.5 [facility] Comment on above: Performed By: #### C BC ####[facility] [address] [place] [id number] Jarvis LYMPH # 1.3 103/ul Normal 1.2-3.8 [facility] Comment on above: Performed By: #### C BC ####[facility] [address] [place] [id number] Jarvis Lymphocytes/100 WBC (Bld) 18.8 % Critically low 20.5-60.0 [facility] Comment on above: Performed By: #### C BC ####[facility] [address] [place] [address]DrSuzie Jarvis MANUAL DIFF REQ NO Normal [facility] Comment on above: Performed By: #### C BC ####[facility] [address] [place] [id number] Eli Matheus MCH (RBC) [Entitic mass] 27.8 pg Normal 25.9-34.0 [facility] Comment on above: Performed By: #### C BC ####[facility] [address] [place] [id number] Sparklealine Jarvis MCHC (RBC) [Mass/Vol] 32.9 g/dL Normal 29.9-35.2 [facility] Comment on above: Performed By: #### C BC ####[facility] [address] [place] [id number] Sparklealine Jarvis MCV (RBC) [Entitic vol] 84.7 fL Normal 80.0-94.0 [facility] Comment on above: Performed By: #### C BC ####[facility] [address] [place] [id number] Jarvis MONO # 0.6 103/ul Normal 0.3-0.8 [facility] Comment on above: Performed By: #### C BC ####[facility] [address] [place] [id number]. Eli Jarvis Monocytes/100 WBC (Bld) 8.5 % Normal 1.7-12.0 [facility] Comment on above: Performed By: #### C BC ####[facility] [address] [place] [id number]. Eli Jarvis NEUT # 4.7 103/ul Normal 1.4-6.5 [facility] Comment on above: Performed By: #### C BC ####[facility] [address] [place] [address]Dr. Eli Jarvis Neutrophils/100 WBC (Bld) 68.1 % Normal 43.0-75.0 [facility] Comment on above: Performed By: #### C BC ####[facility] [address] [place] [address]Dr. Eli Jarvis Platelet mean volume (Bld) [Entitic vol] 10.3 fL Normal 9.5-13.5 [facility] Comment on above: Performed By: #### C BC ####[facility] [address] [place] [address]Dr. Eli Jarvis PLT 189 103/ul Normal 150-450 [facility] Comment on above: Performed By: #### C BC ####[facility] [address] [place] [address]Dr. Eli Jarvis RBC 4.96 106/ul Normal 4.70-6.10 [facility] Comment on above: Performed By: #### C BC ####[facility] [address] [place] [id number]. Eli Jarvis WBC 7.0 103/ul Normal 4.0-11.0 [facility] Comment on above: Performed By: #### C BC ####[facility] [address] [place] [address]DrSuzie Jarvis PROF 14(COMP METB)on 023 Albumin [Mass/Vol] 3.6 g/dL Normal 3.4-5.0 [facility] Comment on above: Performed By: #### C MP, BNP #### [facility] [address] [place] [address] [address] Eli Jarvis Albumin/Globulin [Mass ratio] 1.1 {ratio} Normal [facility] Comment on above: Performed By: #### C MP, BNP #### [facility] [address] [place] [address] [address] Eli Jarvis ALP [Catalytic activity/Vol] 90 U/L Normal 46-116 [facility] Comment on above: Performed By: #### C MP, BNP #### [facility] [address] [place] [address] [address] Eli Jarvis ALT [Catalytic activity/Vol] 42 U/L Normal 16-63 [facility] Comment on above: Performed By: #### C MP, BNP #### [facility] [address] [place] [address] [address] Eli Jarvis Anion gap [Moles/Vol] 13.5 mmol/L Normal [facility] Comment on above: Performed By: #### C MP, BNP #### [facility] [address] [place] [address] [address] Eli Jarvis AST [Catalytic activity/Vol] 26 U/L Normal 15-37 [facility] Comment on above: Performed By: #### C MP, BNP #### [facility] [address] [place] [address] [address] Eli Jarvis Bilirubin [Mass/Vol] 0.4 mg/dL Normal 0.2-1.0 [facility] Comment on above: Performed By: #### C MP, BNP #### [facility] [address] [place] [address] [address] Eli Jarvis Calcium [Mass/Vol] 9.3 mg/dL Normal 8.5-10.1 [facility] Comment on above: Performed By: #### C MP, BNP #### [facility] [address] [place] [address] [address] Eli Jarvis Chloride [Moles/Vol] 104 mmol/L Normal 98-107 [facility] Comment on above: Performed By: #### C MP, BNP #### [facility] [address] [place] [address] [address] Eli Jarvis CO2 [Moles/Vol] 25.7 mmol/L Normal 21.0-32.0 [facility] Comment on above: Performed By: #### C MP, BNP #### [facility] [address] [place] [address] [address] Eli Jarvis Creatinine [Mass/Vol] 1.32 mg/dL Critically high 0.70-1.30 [facility] Comment on above: Performed By: #### C MP, BNP #### [facility] [address] [place] [address] [address] Eli Jarvis EGFR-AF LAO >60 Normal >=60 [facility] Comment on above: Performed By: #### C MP, BNP #### [facility] [address] [place] [address] [address] Eli Jarvis EGFR-NON AF LAO 53 mL/min/1.73m2 Critically low >=60 [facility] Comment on above: Performed By: #### C MP, BNP #### [facility] [address] [place] [address] [address] Eli Jarvis Globulin (S) [Mass/Vol] 3.3 g/dL Normal [facility] Comment on above: Performed By: #### C MP, BNP #### [facility] [address] [place] [address] [address] Eli Jarvis Glucose [Mass/Vol] 154 mg/dL Critically high 74-106 [facility] Comment on above: Performed By: #### C MP, BNP #### [facility] [address] [place] [address] [address] Eli Jarvis Potassium [Moles/Vol] 4.2 mmol/L Normal 3.5-5.1 [facility] Comment on above: Performed By: #### C MP, BNP #### [facility] [address] [place] [address] [address] Eli Jarvis Protein [Mass/Vol] 6.9 g/dL Normal 6.4-8.2 [facility] Comment on above: Performed By: #### C MP, BNP #### [facility] [address] [place] [address] [address] Eli Jarvis Sodium [Moles/Vol] 139 mmol/L Normal 136-145 [facility] Comment on above: Performed By: #### C MP, BNP #### [facility] [address] [place] [address] [address] Eli Jarvis Urea nitrogen [Mass/Vol] 23.0 mg/dL Critically high 7.0-18.0 [facility] Comment on above: Performed By: #### C MP, BNP #### [facility] [address] [place] [address] [address] Eli Jarvis Urea nitrogen/Creatinine [Mass ratio] 17.4 mg/mg Normal [facility] Comment on above: Performed By: #### C MP, BNP #### [facility] [address] [place] [address] [address] Eli Jarvis A1C HEMOGLOBINon 11-07-2022 HbA1c (Bld) [Mass fraction] 7.6 % [employer] Other Glucose - FINGER STICKon Glucose [Mass/Vol] 172 mg/dL [employer] Other HbA1c (Bld) [Mass fraction]o n 11-07-2022 A1C HEMOGLOBIN [place] [facility] [employer] Other US KIDNEYSon 2022 US KIDNEYS EXAMINATION: [...] MORGAN ROJO Date: 2022 18:30 Normal [facility] A1C HEMOGLOBINon 07-27-2022 HbA1c (Bld) [Mass fraction] 7.2 % [employer] Other Glucose - FINGER STICKon Glucose [Mass/Vol] 160 mg/dL [employer] Other HbA1c (Bld) [Mass fraction]o n 07-27-2022 A1C HEMOGLOBIN [employer] Other A1C HEMOGLOBINon 04-21-2022 HbA1c (Bld) [Mass fraction] 7.6 % [employer] Other Glucose - FINGER STICKon Glucose [Mass/Vol] 184 mg/dL [employer] Other HbA1c (Bld) [Mass fraction]o n 04-21-2022 A1C HEMOGLOBIN [employer] Other [employer] Creat Ratio,Uon Albumin DL <= 20 mg/L (U) [Mass/Vol] 10.1196966 mg/dL High 0.0-1.8 mg/dL [employer] Other Albumin/Creatinine DL <= 20 mg/L (U) [Mass ratio] 70.924030 mg/g High 0.0-30.0 mg/g [employer] Other Creatinine (U) [Mass/Vol] 237.3023188 mg/dL [employer] Other CBC AUTO DIFFon 04-07-2022 BASO # 0.0 103/ul Normal 0.0-0.1 [facility] Comment on above: Performed By: #### C BC #### [facility] [address] [place] [address] Dr. Eli Jarvis Basophils/100 WBC (Bld) 0.6 % Normal 0.2-2.0 [facility] Comment on above: Performed By: #### C BC #### [facility] [address] [place] [address] Dr. Eli Jarvis EO # 0.2 103/ul Normal 0.0-0.7 [facility] Comment on above: Performed By: #### C BC #### [facility] [address] [place] [address] Dr. Eli Jarvis Eosinophils/100 WBC (Bld) 2.9 % Normal 0.9-7.0 [facility] Comment on above: Performed By: #### C BC #### [facility] [address] [place] [address] Dr. Eli Jarvis Erythrocyte distribution width (RBC) [Ratio] 13.8 % Normal 11.0-15.0 [facility] Comment on above: Performed By: #### C BC #### [facility] [address] [place] [address] Dr. Eli Jarvis Hematocrit (Bld) [Volume fraction] 40.7 % Critically low 42.0-54.0 [facility] Comment on above: Performed By: #### C BC #### [facility] [address] [place] [address] Dr. Eli Jarvis Hemoglobin (Bld) [Mass/Vol] 13.3 g/dL Critically low 14.0-18.0 [facility] Comment on above: Performed By: #### C BC #### [facility] [address] [place] [address] Dr. Eli Jarvis IG # 0.04 10e3/ul Critically high 0.00-0.03 [facility] Comment on above: Performed By: #### C BC #### [facility] [address] [place] [address] Dr. Eli Jarvis IG % 0.6 % Critically high 0.0-0.5 [facility] Comment on above: Performed By: #### C BC #### [facility] [address] [place] [address] Dr. Eli Jarvis LYMPH # 1.3 103/ul Normal 1.2-3.8 [facility] Comment on above: Performed By: #### C BC #### [facility] [address] [place] [address] Dr. Eli Jarvis Lymphocytes/100 WBC (Bld) 18.7 % Critically low 20.5-60.0 [facility] Comment on above: Performed By: #### C BC #### [facility] Laboratory [address] [place] [address] Dr. Eli Jarvis MANUAL DIFF REQ NO Normal [facility] Comment on above: Performed By: #### C BC #### [facility] Laboratory [address] [place] [address] Dr. Eli Jarvis MCH (RBC) [Entitic mass] 28.1 pg Normal 25.9-34.0 [facility] Comment on above: Performed By: #### C BC #### [facility] Laboratory [address] [place] [address] Dr. Eli Jarvis MCHC (RBC) [Mass/Vol] 32.7 g/dL Normal 29.9-35.2 [facility] Comment on above: Performed By: #### C BC #### [facility] Laboratory [address] [place] [address] Dr. Eli Jarvis MCV (RBC) [Entitic vol] 86.0 fL Normal 80.0-94.0 [facility] Comment on above: Performed By: #### C BC #### [facility] Laboratory [address] [place] [address] Dr. Eli Jarvis MONO # 0.4 103/ul Normal 0.3-0.8 [facility] Comment on above: Performed By: #### C BC #### [facility] Laboratory [address] [place] [address] Dr. Eli Jarvis Monocytes/100 WBC (Bld) 6.2 % Normal 1.7-12.0 [facility] Comment on above: Performed By: #### C BC #### [facility] Laboratory [address] [place] [address] Dr. Eli Jarvis NEUT # 4.9 103/ul Normal 1.4-6.5 [facility] Comment on above: Performed By: #### C BC #### [facility] Laboratory [address] [address] [address] Eli Jarvis Neutrophils/100 WBC (Bld) 71.0 % Normal 43.0-75.0 [facility] Comment on above: Performed By: #### C BC #### [facility] Laboratory [address] [address] [address] Eli Jarvis Platelet mean volume (Bld) [Entitic vol] 9.9 fL Normal 9.5-13.5 [facility] Comment on above: Performed By: #### C BC #### [facility] Laboratory [address] [place] [address] Dr. Eli Jarvis PLT 184 103/ul Normal 150-450 [facility] Comment on above: Performed By: #### C BC #### [facility] Laboratory [address] [address] [address] Eli Jarvis RBC 4.73 106/ul Normal 4.70-6.10 [facility] Comment on above: Performed By: #### C BC #### [facility] Laboratory [address] [address] [address] Eli Jarvis WBC 6.9 103/ul Normal 4.0-11.0 [facility] Comment on above: Performed By: #### C BC #### [facility] Laboratory [address] [address] [address] Eli Jarvis LIPID PROFILEon 04-07-2022 CHOL-HDL RATIO NORM SEE BELOW Normal [facility] Comment on above: Result Comment: 3.3 - 4.4 LOW RISK 4.4 - 7.1 AVERAGE RISK 7.1 - 11.0 MODERATE RISK >11.0 HIGH RISK Performed By: #### C MP, LIPID ####[facility] [address] [address]Dr. Eli Jarvis Cholesterol [Mass/Vol] 127 mg/dL Normal <=200 [facility] Comment on above: Performed By: #### C MP, LIPID ####[facility] [address] [id number]. Eli Jarvis Cholesterol in HDL [Mass/Vol] 36 mg/dL Critically low 40-60 [facility] Comment on above: Performed By: #### C MP, LIPID ####[facility] [address] [id number]. Eli Jarvis Cholesterol in LDL [Mass/Vol] 58.4 mg/dL Normal [facility] Comment on above: Performed By: #### C MP, LIPID ####[facility] [address] [address]Dr. Eli Jarvis Cholesterol.total/Ch olesterol in HDL [Mass ratio] 3.5 {ratio} Normal [facility] Comment on above: Performed By: #### C MP, LIPID ####[facility] [address] [address]Dr. Eli Jarvis HDL NORMAL > or = 60 mg/dl - LO W CARDIOVASCULAR RISK <40 mg/dl - HIGH CARDIOVASCULAR RISK Normal [facility] Comment on above: Performed By: #### C MP, LIPID ####[facility] [address] [address]Dr. Eli Jarvis LDL CALC NORMAL SEE BELOW Normal [facility] Comment on above: Result Comment: <100 mg/dl OPTIMAL 100 - 129 mg/dl NEAR OR ABOVE OPTIMAL 130 - 159 mg/dl BORDERLINE HIGH 160 - 189 mg/dl HIGH >190 mg/dl VERY HIGH Performed By: #### C MP, LIPID ####[facility] [address] [address]Dr. Eli Jarvis Triglyceride [Mass/Vol] 163 mg/dL Critically high <=150 [facility] Comment on above: Performed By: #### C MP, LIPID ####[facility] [address] [address]Dr. Eli Jarvis VLDL CALC 32.6 mg/dL Normal [facility] Comment on above: Performed By: #### C MP, LIPID ####[facility] [address] [id number]. Eli Jarvis PROF 14(COMP METB)on 022 Albumin [Mass/Vol] 3.8 g/dL Normal 3.4-5.0 [facility] Comment on above: Performed By: #### C MP, LIPID ####[facility] [address] [address]Dr. Eli Jarvis Albumin/Globulin [Mass ratio] 1.1 {ratio} Normal [facility] Comment on above: Performed By: #### C MP, LIPID ####[facility] [address] [address]Dr. Eli Jarvis ALP [Catalytic activity/Vol] 89 U/L Normal 46-116 [facility] Comment on above: Performed By: #### C MP, LIPID ####[facility] [address] [address]Dr. Eli Jarvis ALT [Catalytic activity/Vol] 43 U/L Normal 16-63 [facility] Comment on above: Performed By: #### C MP, LIPID ####[facility] [address] [address]Dr. Eli Jarvis Anion gap [Moles/Vol] 10.7 mmol/L Normal [facility] Comment on above: Performed By: #### C MP, LIPID ####[facility] [address] [place], [place] [address]Dr. Eli Jarvis AST [Catalytic activity/Vol] 24 U/L Normal 15-37 [facility] Comment on above: Performed By: #### C MP, LIPID ####[facility] [address] [address]Dr. Eli Jarvis Bilirubin [Mass/Vol] 0.2 mg/dL Normal 0.2-1.0 [facility] Comment on above: Performed By: #### C MP, LIPID ####[facility] [address] [address]Dr. Eli Jarvis Calcium [Mass/Vol] 9.1 mg/dL Normal 8.5-10.1 [facility] Comment on above: Performed By: #### C MP, LIPID ####[facility] [address] [address]Dr. Eli Jarvis Chloride [Moles/Vol] 104 mmol/L Normal 98-107 [facility] Comment on above: Performed By: #### C MP, LIPID ####[facility] [address] [address]Dr. Sparklealine Matheus CO2 [Moles/Vol] 27.5 mmol/L Normal 21.0-32.0 [facility] Comment on above: Performed By: #### C MP, LIPID ####[facility] [address] [address]Dr. Eli Jarvis Creatinine [Mass/Vol] 1.15 mg/dL Normal 0.70-1.30 [facility] Comment on above: Performed By: #### C MP, LIPID ####[facility] [address] [address]Dr. Eli Jarvis EGFR-AF LAO >60 Normal >=60 [facility] Comment on above: Performed By: #### C MP, LIPID ####[facility] [address] [address]Dr. Sparklealine Matheus EGFR-NON AF LAO >60 Normal >=60 [facility] Comment on above: Performed By: #### C MP, LIPID ####[facility] [address] [place], [place] [address]Dr. Eli Jarvis Globulin (S) [Mass/Vol] 3.4 g/dL Normal [facility] Comment on above: Performed By: #### C MP, LIPID ####[facility] [address] [address]Dr. Eli Jarvis Glucose [Mass/Vol] 157 mg/dL Critically high 74-106 [facility] Comment on above: Performed By: #### C MP, LIPID ####[facility] [address] [address]Dr. Eli Jarvis Potassium [Moles/Vol] 4.2 mmol/L Normal 3.5-5.1 [facility] Comment on above: Performed By: #### C MP, LIPID ####[facility] [address] [address]Dr. Eli Jarvis Protein [Mass/Vol] 7.2 g/dL Normal 6.4-8.2 [facility] Comment on above: Performed By: #### C MP, LIPID ####[facility] [address] [place], [place] [address]Gb. Eli Jarvis Sodium [Moles/Vol] 138 mmol/L Normal 136-145 [facility] Comment on above: Performed By: #### C MP, LIPID ####[facility] [address] [place], [place] [address]Ck. Eli Jarvis Urea nitrogen [Mass/Vol] 26.0 mg/dL Critically high 7.0-18.0 [facility] Comment on above: Performed By: #### C MP, LIPID ####[facility] [address] [place], [place] [address]Jq. Eli Jarvis Urea nitrogen/Creatinine [Mass ratio] 22.6 mg/mg Normal [facility] Comment on above: Performed By: #### C MP, LIPID ####[facility] [address] [place], [place] [address]Mo. Eli Jarvis A1C HEMOGLOBINon 10-21-2021 HbA1c (Bld) [Mass fraction] 6.6 % [employer] Other Glucose - FINGER STICKon Glucose [Mass/Vol] 169 mg/dL [employer] Other HbA1c (Bld) [Mass fraction]o n 10-21-2021 A1C HEMOGLOBIN [facility] [employer] Other Comprehensive Metabolic Pane deann 07-29-2021 Albumin [Mass/Vol] 3.9 g/dL 3.2-5.5 [employer] Other Albumin/Globulin [Mass ratio] 1.6 {ratio} [employer] Other ALP [Catalytic activity/Vol] 63 U/L 32-92 [employer] Other ALT [Catalytic activity/Vol] 32 U/L 10-60 [employer] Other AST [Catalytic activity/Vol] 32 U/L 10-42 [place] [employer] Other Bilirubin [Mass/Vol] 0.5 mg/dL 0.3-1.2 [facility] [employer] Other Calcium [Mass/Vol] 9.7 mg/dL 8.2-10.2 [place] [employer] Other Chloride [Moles/Vol] 105 mmol/L 95-114 [facility] [employer] Other CO2 [Moles/Vol] 22.7 mmol/L 22.0-30.0 [facility] [employer] Other Creatinine [Mass/Vol] 1.28 mg/dL 0.64-1.27 [place] [employer] Other Glucose [Mass/Vol] 111 mg/dL 70-100 [employer] Other Potassium [Moles/Vol] 4.1 mmol/L 3.5-5.1 [place] [employer] Other Protein [Mass/Vol] 6.3 g/dL 6.1-7.9 [employer] Other Sodium [Moles/Vol] 139 mmol/L 136-146 [place] [employer] Other Urea nitrogen [Mass/Vol] 23 mg/dL 9-23 [employer] Other Comprehensive Metabolic Panel 55 [employer] Other Comprehensive Metabolic Panel > 60 [employer] Other Comprehensive Metabolic Panel 2.4 [employer] Other Hepatitis Acute Panelon 10-2 Hepatitis Acute Panel Negative Negative [employer] Other Hepatitis Acute Panel <0.1 0.0-0.9 [employer] Other Vital Signs Date Time Vital Sign Value Performing Clinician Facility 10-17-2024 10:14-0500 Body height 165.1 cm Bassam Aguilar DPM Work Phone: [facility] 10-17-2024 10:14-0500 Body mass index (BMI) [Ratio] 45.93 kg/m2 Bassam Brown DPM Work Phone: [facility] 10-17-2024 10:14-0500 Body weight 125.19 kg Bassam Calvin DPM Work Phone: [facility] 10-17-2024 10:14-0500 Respiratory rate 16 /min Bassam Aguilar DPM Work Phone: [facility] 08-29-2024 09:27-0500 Body mass index (BMI) [Ratio] 45.93 kg/m2 Christopher Lalo DO Work Phone: [facility] 08-29-2024 09:27-0500 Body weight 125.19 kg Christopher Lalo DO Work Phone: [facility] 08-29-2024 09:27-0500 Diastolic blood pressure 76 mm[Hg] Christopher Lalo DO Work Phone: [facility] 08-29-2024 09:27-0500 Heart rate 64 /min Christopher Lalo DO Work Phone: [facility] 08-29-2024 09:27-0500 SaO2% (BldA) [Mass fraction] 95 % Christopher Lalo DO Work Phone: [facility] 08-29-2024 09:27-0500 Systolic blood pressure 134 mm[Hg] Christopher Lalo DO Work Phone: [facility] 08-14-2024 09:59-0500 Body mass index (BMI) [Ratio] 40.46 kg/m2 Chiqui Robles MD Work Phone: [facility] 08-14-2024 09:59-0500 Body weight 117.2 kg Chiqui Robles MD Work Phone: [facility] 08-14-2024 09:59-0500 Diastolic blood pressure 69 mm[Hg] Chiqui Robles MD Work Phone: [facility] 08-14-2024 09:59-0500 Heart rate 59 /min Chiqui Robles MD Work Phone: [facility] 08-14-2024 09:59-0500 Respiratory rate 16 /min Chiqui Robles MD Work Phone: [facility] 08-14-2024 09:59-0500 SaO2% (BldA) [Mass fraction] 97 % Chiqui Robles MD Work Phone: [facility] 08-14-2024 09:59-0500 Systolic blood pressure 137 mm[Hg] Chiqui Robles MD Work Phone: [facility] 08-08-2024 09:32-0400 Body height 165.1 cm Bassam Aguilar DPM Work Phone: [facility] 08-08-2024 09:32-0400 Body mass index (BMI) [Ratio] 42.43 kg/m2 Bassam Aguilar DPM Work Phone: [facility] 08-08-2024 09:32-0400 Body weight 115.67 kg Bassam Aguilar DPM Work Phone: [facility] 08-08-2024 09:32-0400 Diastolic blood pressure 79 mm[Hg] Bassam Aguilar DPM Work Phone: [facility] 08-08-2024 09:32-0400 Heart rate 82 /min Bassam Aguilar DPM Work Phone: [facility] 08-08-2024 09:32-0400 Systolic blood pressure 128 mm[Hg] Bassam Aguilar DPM Work Phone: [facility] 08-06-2024 09:53-0400 Body height 165.1 cm Khai Heard DO Work Phone: [facility] 08-06-2024 09:53-0400 Body mass index (BMI) [Ratio] 42.43 kg/m2 Khai Heard DO Work Phone: [facility] 08-06-2024 09:53-0400 Body weight 115.67 kg Khai Heard DO Work Phone: [facility] 07-31-2024 10:20-0400 Body height 165.1 cm Shyam Dolce DPM [employer] Work Phone: [facility] 07-31-2024 10:20-0400 Body mass index (BMI) [Ratio] 42.43 kg/m2 Shyam Dolce DPM [employer] Work Phone: [facility] 07-31-2024 10:20-0400 Body weight 115.67 kg Shyam Dolce DPM [employer] Work Phone: [facility] 07-31-2024 10:20-0400 Diastolic blood pressure 79 mm[Hg] Shyam Dolce DPM [employer] Work Phone: [facility] 07-31-2024 10:20-0400 Heart rate 68 /min Shyam Dolce DPM [employer] Work Phone: [facility] 07-31-2024 10:20-0400 Systolic blood pressure 128 mm[Hg] Shyam Dolce DPM [employer] Work Phone: [facility] 07-24-2024 10:12-0400 Body height 165.1 cm Shyam Dolce DPM [employer] Work Phone: [facility] 07-24-2024 10:12-0400 Body mass index (BMI) [Ratio] 42.43 kg/m2 Shyam Dolce DPM [employer] Work Phone: [facility] 07-24-2024 10:12-0400 Body weight 115.67 kg Shyam Dolce DPM [employer] Work Phone: [facility] 07-24-2024 10:12-0400 Diastolic blood pressure 78 mm[Hg] Shyam Dolce DPM [employer] Work Phone: [facility] 07-24-2024 10:12-0400 Heart rate 83 /min Shyam Dolce DPM [employer] Work Phone: [facility] 07-24-2024 10:12-0400 Systolic blood pressure 131 mm[Hg] Shyam Dolce DPM [employer] Work Phone: [facility] 07-23-2024 09:37-0400 Body height 165.1 cm Arlen Sanchez [employer] Work Phone: [facility] 07-23-2024 09:37-0400 Body mass index (BMI) [Ratio] 42.43 kg/m2 Arlen Sanchez DO Work Phone: [facility] 07-23-2024 09:37-0400 Body weight 115.67 kg Arlen Sanchez [employer] Work Phone: [facility] 07-03-2024 10:07-0400 Body height 165.1 cm Shyam Dolce DPM [employer] Work Phone: [facility] 07-03-2024 10:07-0400 Body mass index (BMI) [Ratio] 42.43 kg/m2 Shyam Dolce DPM [employer] Work Phone: [facility] 07-03-2024 10:07-0400 Body weight 115.67 kg Shyam Dolce DPM [employer] Work Phone: [facility] 07-03-2024 10:07-0400 Diastolic blood pressure 78 mm[Hg] Shyam Dolce DPM [employer] Work Phone: [facility] 07-03-2024 10:07-0400 Heart rate 85 /min Shyam Dolce DPM [employer] Work Phone: [facility] 07-03-2024 10:07-0400 Systolic blood pressure 132 mm[Hg] Shyam Dolce DPM [employer] Work Phone: [facility] 06-25-2024 14:46-0400 Body height 165.1 cm Kajal Dolce DPM [employer] Work Phone: [facility] 06-25-2024 14:46-0400 Body mass index (BMI) [Ratio] 42.43 kg/m2 Kajal Dolce DPM [employer] Work Phone: [facility] 06-25-2024 14:46-0400 Body weight 115.67 kg Kajal Dolce DPM [employer] Work Phone: [facility] 06-25-2024 14:46-0400 Diastolic blood pressure 75 mm[Hg] Kajal Dolce DPM [employer] Work Phone: [facility] 06-25-2024 14:46-0400 Heart rate 72 /min Kajal Dolce DPM [employer] Work Phone: [facility] 06-25-2024 14:46-0400 Systolic blood pressure 126 mm[Hg] Kajal Dolce DPM [employer] Work Phone: [facility] 06-19-2024 08:52-0400 Body height 165.1 cm Shyam Dolce DPM [employer] Work Phone: [facility] 06-19-2024 08:52-0400 Body mass index (BMI) [Ratio] 42.43 kg/m2 Shyam Dolce DPM [employer] Work Phone: [facility] 06-19-2024 08:52-0400 Body weight 115.67 kg Shyam Dolce DPM [employer] Work Phone: [facility] 06-19-2024 08:52-0400 Diastolic blood pressure 77 mm[Hg] Shyam Dolce DPM [employer] Work Phone: [facility] 06-19-2024 08:52-0400 Heart rate 73 /min Shyam Dolce DPM [employer] Work Phone: [facility] 06-19-2024 08:52-0400 Systolic blood pressure 125 mm[Hg] Shyam Dolce DPM [employer] Work Phone: [facility] 06-18-2024 10:17-0400 Body height 165.1 cm Bassam Aguilar DPM Work Phone: [facility] 06-18-2024 10:17-0400 Body mass index (BMI) [Ratio] 42.43 kg/m2 Bassam Aguilar DPM Work Phone: [facility] 06-18-2024 10:17-0400 Body weight 115.67 kg Bassam Aguilar DPM Work Phone: [facility] 06-18-2024 10:17-0400 Diastolic blood pressure 75 mm[Hg] Bassam Aguilar DPM Work Phone: [facility] 06-18-2024 10:17-0400 Heart rate 83 /min Bassam Aguilar DPM Work Phone: [facility] 06-18-2024 10:17-0400 Systolic blood pressure 125 mm[Hg] Bassam Aguilar DPM Work Phone: [facility] 04-24-2024 08:50-0400 Body height 170.2 cm Chiqui Robles MD Work Phone: [facility] 04-24-2024 08:50-0400 Body mass index (BMI) [Ratio] 42.28 kg/m2 Chiqui Robles MD Work Phone: [facility] 04-24-2024 08:50-0400 Body weight 122.47 kg Chiqui Robles MD Work Phone: [facility] 04-24-2024 08:50-0400 Diastolic blood pressure 89 mm[Hg] Chiqui Robles MD Work Phone: [facility] 04-24-2024 08:50-0400 Heart rate 61 /min Chiqui Robles MD Work Phone: [facility] 04-24-2024 08:50-0400 SaO2% (BldA) [Mass fraction] 95 % Chiqui Robles MD Work Phone: [facility] 04-24-2024 08:50-0400 Systolic blood pressure 122 mm[Hg] Chiqui Robles MD Work Phone: [facility] 02-29-2024 13:41-0400 Body height 170.2 cm Herberth Araujo MD, PhD Work Phone: [facility] 02-29-2024 13:41-0400 Body mass index (BMI) [Ratio] 42.29 kg/m2 Herberth Araujo MD, PhD Work Phone: [facility] 02-29-2024 13:41-0400 Body temperature 97.39 [degF] Herberth Araujo MD, PhD Work Phone: [facility] 02-29-2024 13:41-0400 Body weight 122.47 kg Herberth Araujo MD, PhD Work Phone: [facility] 02-29-2024 13:41-0400 Diastolic blood pressure 73 mm[Hg] Herberth Araujo MD, PhD Work Phone: [facility] 02-29-2024 13:41-0400 Heart rate 62 /min Herberth Araujo MD, PhD Work Phone: [facility] 02-29-2024 13:41-0400 SaO2% (BldA) [Mass fraction] 94 % Herberth Araujo MD, PhD Work Phone: [facility] 02-29-2024 13:41-0400 Systolic blood pressure 138 mm[Hg] Herberth Araujo MD, PhD Work Phone: [facility] 02-05-2024 12:17-0400 Body weight 124.74 kg Francoise Singletary MD Work Phone: [facility] 02-05-2024 12:17-0400 Diastolic blood pressure 70 mm[Hg] Francoise Singletary MD Work Phone: [facility] 02-05-2024 12:17-0400 Heart rate 80 /min Francoise Singletary MD Work Phone: [facility] 02-05-2024 12:17-0400 Systolic blood pressure 131 mm[Hg] Francoise Singletary MD Work Phone: [facility] 09-11-2023 11:00-0500 Body height 167.64 cm Aldo Middleton Other [facility] 09-11-2023 11:00-0500 Body mass index (BMI) [Ratio] 44.91 kg/m2 Tondra Mapus Other [employer] Other 09-11-2023 11:00-0500 Body weight 126.24 kg Tondra Mapus Other [employer] Other 09-11-2023 11:00-0500 Body weight 126.23 kg MD Scarlet Johnson Work Phone: [facility] 09-11-2023 11:00-0500 Diastolic blood pressure 82 mm[Hg] Tondra Mapus Other [facility] 09-11-2023 11:00-0500 Respiratory rate 18 /min Tondra Mapus Other [employer] Other 09-11-2023 11:00-0500 SaO2% (BldA) [Mass fraction] 99 % Tondra Mapus Other [employer] Other 09-11-2023 11:00-0500 Systolic blood pressure 153 mm[Hg] Tondra Mapus Other [facility] 08-24-2023 13:45-0500 Body height 167.64 cm Eligio Soni Other [facility] 08-24-2023 13:45-0500 Body mass index (BMI) [Ratio] 44.22 kg/m2 Eligio Soni Other [employer] Other 08-24-2023 13:45-0500 Body temperature 97.4 [degF] Eligio Soni Other [employer] Other 08-24-2023 13:45-0500 Body weight 124.29 kg Eligio Soni Other [employer] Other 08-24-2023 13:45-0500 Body weight 124.28 kg MD Scarlet Johnson Work Phone: [facility] 08-24-2023 13:45-0500 Diastolic blood pressure 60 mm[Hg] Eligio Soni Other [facility] 08-24-2023 13:45-0500 SaO2% (BldA) [Mass fraction] 97 % Eligio Soni Other [facility] [employer] Other 08-24-2023 13:45-0500 Systolic blood pressure 130 mm[Hg] Eligio Soni Other [facility] 03-07-2023 10:00-0400 Body height 167.64 cm Terry Kelley Other [employer] Other 03-07-2023 10:00-0400 Body mass index (BMI) [Ratio] 43.61 kg/m2 Terry Kelley Other [employer] Other 03-07-2023 10:00-0400 Body weight 122.56 kg Terry Kelley Other [employer] Other 03-07-2023 10:00-0400 Diastolic blood pressure 70 mm[Hg] Terry Kelley Other [employer] Other 03-07-2023 10:00-0400 Respiratory rate 20 /min Terry Kelley Other [employer] Other 03-07-2023 10:00-0400 SaO2% (BldA) [Mass fraction] 96 % Terry Kelley Other [employer] Other 03-07-2023 10:00-0400 Systolic blood pressure 134 mm[Hg] Terry Kelley Other [employer] Other 02-14-2023 09:45-0400 Body height 172.72 cm Tondra Mapus Other [employer] Other 02-14-2023 09:45-0400 Body mass index (BMI) [Ratio] 41.32 kg/m2 Tondra Mapus Other [employer] Other 02-14-2023 09:45-0400 Body weight 123.29 kg Tondra Mapus Other [employer] Other 02-14-2023 09:45-0400 Diastolic blood pressure 82 mm[Hg] Tondra Mapus Other [employer] Other 02-14-2023 09:45-0400 Respiratory rate 18 /min Tondra Mapus Other [employer] Other 02-14-2023 09:45-0400 SaO2% (BldA) [Mass fraction] 97 % Tondra Mapus Other [employer] Other 02-14-2023 09:45-0400 Systolic blood pressure 157 mm[Hg] Tondra Mapus Other [employer] Other 01-20-2023 12:15-0400 Body height 172.72 cm Carito Fitt Other [employer] Other 01-20-2023 12:15-0400 Body mass index (BMI) [Ratio] 40.71 kg/m2 Carito Fitt Other [employer] Other 01-20-2023 12:15-0400 Body weight 121.47 kg Carito West Other [employer] Other 01-05-2023 11:15-0400 Body height 172.72 cm Terry Rigoberto Other [employer] Other 01-05-2023 11:15-0400 Body mass index (BMI) [Ratio] 40.96 kg/m2 Terry Rigoberto Other [employer] Other 01-05-2023 11:15-0400 Body weight 122.2 kg Terrynikolai Kimblediff Other [facility] Other 01-05-2023 11:15-0400 Diastolic blood pressure 73 mm[Hg] Terry Kelley Other [facility] Other 01-05-2023 11:15-0400 Respiratory rate 18 /min Terrynikolai Kimblediff Other [facility] Other 01-05-2023 11:15-0400 SaO2% (BldA) [Mass fraction] 98 % Terry Kelley Other [facility] Other 01-05-2023 11:15-0400 Systolic blood pressure 143 mm[Hg] Terry Kelley Other [facility] Other 11-24-2022 12:15-0500 Body height 172.72 cm Carito Wisejosiane Other [facility] Other 11-24-2022 12:15-0500 Body mass index (BMI) [Ratio] 42.22 kg/m2 Carito Fitt Other [facility] Other 11-24-2022 12:15-0500 Body weight 125.96 kg Carito Fitt Other [facility] Other 11-18-2022 11:15-0500 Body height 172.72 cm Terry Kimblediff Other [facility] Other 11-18-2022 11:15-0500 Body mass index (BMI) [Ratio] 41.96 kg/m2 Terry Kimblediff Other [facility] Other 11-18-2022 11:15-0500 Body weight 125.19 kg Terry Kimblediff Other [facility] Other 11-18-2022 11:15-0500 Diastolic blood pressure 75 mm[Hg] Terry Kimblediff Other [facility] Other 11-18-2022 11:15-0500 Respiratory rate 18 /min Terry Kimblediff Other [facility] Other 11-18-2022 11:15-0500 SaO2% (BldA) [Mass fraction] 99 % Terry Kimblediff Other [facility] Other 11-18-2022 11:15-0500 Systolic blood pressure 148 mm[Hg] Terry Kelley Other [facility] Other 11-07-2022 10:15-0500 Body height 172.72 cm Aldo Middleton Other [facility] Other 11-07-2022 10:15-0500 Body mass index (BMI) [Ratio] 42.58 kg/m2 Tondra Mapus Other [facility] Other 11-07-2022 10:15-0500 Body weight 127.05 kg Tondra Mapus Other [facility] Other 11-07-2022 10:15-0500 Diastolic blood pressure 83 mm[Hg] Tondra Mapus Other [facility] Other 11-07-2022 10:15-0500 Respiratory rate 18 /min Tondra Mapus Other [facility] Other 11-07-2022 10:15-0500 SaO2% (BldA) [Mass fraction] 98 % Tondra Mapus Other [facility] Other 11-07-2022 10:15-0500 Systolic blood pressure 170 mm[Hg] Tondra Mapus Other [facility] Other 10-18-2022 15:00-0500 Body height 172.72 cm Carito Fitt Other [facility] Other 2022 16:15-0400 Body height 172.72 cm Carito Fitt Other [facility] Other 07-27-2022 12:00-0400 Body height 172.72 cm Tondra Mapus Other [facility] Other 07-27-2022 12:00-0400 Body mass index (BMI) [Ratio] 40.9 kg/m2 Tondra Mapus Other [facility] Other 07-27-2022 12:00-0400 Body weight 122.02 kg Tondra Mapus Other [facility] Other 07-27-2022 12:00-0400 Diastolic blood pressure 75 mm[Hg] Tondra Mapus Other [facility] Other 07-27-2022 12:00-0400 Respiratory rate 20 /min Tondra Mapus Other [facility] Other 07-27-2022 12:00-0400 SaO2% (BldA) [Mass fraction] 97 % Tondra Mapus Other [facility] Other 07-27-2022 12:00-0400 Systolic blood pressure 141 mm[Hg] Tondra Mapus Other [facility] Other 06-08-2022 10:45-0400 Body height 172.72 cm Carito West Other [facility] Other 04-21-2022 12:00-0400 Body height 172.72 cm Tondra Mapus Other [facility] Other 04-21-2022 12:00-0400 Body mass index (BMI) [Ratio] 39.67 kg/m2 Tondra Mapus Other [facility] Other 04-21-2022 12:00-0400 Body weight 118.34 kg Tondra Mapus Other [facility] Other 04-21-2022 12:00-0400 Diastolic blood pressure 74 mm[Hg] Tondra Mapus Other [facility] Other 04-21-2022 12:00-0400 Respiratory rate 20 /min Tondra Mapus Other [facility] Other 04-21-2022 12:00-0400 SaO2% (BldA) [Mass fraction] 97 % Tondra Mapus Other [facility] Other 04-21-2022 12:00-0400 Systolic blood pressure 143 mm[Hg] Tondra Mapus Other [facility] Other 10-21-2021 12:00-0500 Body height 172.72 cm Tondra Mapus Other [facility] Other 10-21-2021 12:00-0500 Body mass index (BMI) [Ratio] 40.14 kg/m2 Tondra Mapus Other [facility] Other 10-21-2021 12:00-0500 Body weight 119.75 kg Tondra Mapus Other [facility] Other 10-21-2021 12:00-0500 Diastolic blood pressure 78 mm[Hg] Tondra Mapus Other [facility] Other 10-21-2021 12:00-0500 Respiratory rate 20 /min Tondra Mapus Other [facility] Other 10-21-2021 12:00-0500 SaO2% (BldA) [Mass fraction] 97 % Tondra Mapus Other [facility] Other 10-21-2021 12:00-0500 Systolic blood pressure 147 mm[Hg] Tondra Mapus Other [facility] Other 07-21-2021 15:45-0400 Body height 172.72 cm Morgan Kunz Other [facility] Other 07-21-2021 15:45-0400 Body mass index (BMI) [Ratio] 38.77 kg/m2 Morgan Kunz Other [facility] Other 07-21-2021 15:45-0400 Body weight 115.67 kg Morgan Kunz Other [facility] Other 12-14-2017 15:17-0500 Body height 170.18 cm MD Scarlet Johnson Work Phone: [facility] Encounters Encounter Date Encounter Type Care Provider Facility Start: 01-20-2025 ambulatory Haider Hickman Facility :[facility] Ruth Ann Start: 01-01-2025 End: 01-01-2025 ambulatory Krishna Talal Dulcemini Facility:[facility] Start: 12-19-2024 End: 12-19-2024 ambulatory [facility] Start: 12-18-2024 End: 12-18-2024 ambulatory [facility] Start: 12-18-2024 End: 12-18-2024 Encounter for other preprocedural examination [facility] Start: 12-04-2024 End: 12-04-2024 ambulatory Nanette Barajas Facility:[facility] Jocelyn shira Start: 12-04-2024 End: 12-04-2024 ambulatory Krishna Talal Sarmini Facility:[facility] Start: 12-02-2024 End: 12-02-2024 ambulatory Miguelangel Mac MD Facility: [place] Start: 11-27-2024 End: 11-27-2024 ambulatory Krishna Talal Sarmini Facility:[facility] Start: 11-18-2024 End: 11-18-2024 ambulatory Haider Hickman Facility:[facility] Jocelyn shira Start: 11-12-2024 End: 11-12-2024 ambulatory Haider Hickman Facility:[facility] Gwynn shira Start: 11-07-2024 ambulatory Nanette Barajas [facility] Start: 11-06-2024 ambulatory Araceli BERMUDEZ Facility : [place] Start: 11-04-2024 End: 11-04-2024 ambulatory Haider Hickman Facility:[facility] Gwynn shira Start: 10-24-2024 End: 10-24-2024 ambulatory Haider Hickman Facility:[facility] Jocelyn shira Start: 10-17-2024 End: 10-17-2024 Bamboo flowsheet Bassam Aguilar DPM Work Phone: [facility] Start: 10-17-2024 End: 10-17-2024 Bamboo flowsheet Bassam Aguilar DPM Work Phone: [facility] Start: 10-17-2024 End: 10-17-2024 Patient encounter procedure Bassam Aguilar DPM Work Phone: [facility] Comment on above: Diabetes mellitus du e to underlying condition with diabetic polyneuropathy, 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 superintendent container terminal insulin use ([facility]) (Primary Dx); Pain due to onychomycosis of toenails of both feet; Venous insufficiency Start: 10-17-2024 End: 10-17-2024 ambulatory BASSAM AGUILAR Not Available Start: 10-15-2024 End: 10-15-2024 ambulatory Haider Hickman Facility:[facility] Jocelyn shira Start: 09-09-2024 End: 09-09-2024 ambulatory Haider Hickman Facility:[facility] Start: 09-09-2024 End: 09-09-2024 [facility]ulatory [facility] Start: 09-02-2024 End: 09-02-2024 ambulatory Miguelangel Mac MD Facility:[facility] [place] Start: 08-29-2024 End: 08-29-2024 Bamboo flowsheet Matthew [...] Start: 08-15-2024 End: 08-15-2024 ambulatory Haider Hickman Facility:[facility] Start: 08-14-2024 End: 08-14-2024 ambulatory HAIDER HICKMAN Facility:[facility] Start: 08-14-2024 End: 08-14-2024 Patient encounter [...] underlying condition with diabetic polyneuropathy, 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 penitentiary insulin use ([facility]); Pain due to onychomycosis of toenails of both feet Start: 08-08-2024 End: 08-08-2024 ambulatory BASSAM AGUILAR Not Available Start: 08-07-2024 End: 08-07-2024 ambulatory [facility] Start: 08-06-2024 End: 08-06-2024 Bamboo flowsheet [...] 08-01-2024 End: 08-01-2024 ambulatory Haider Hickman Facility:[facility] Start: 07-31-2024 End: 07-31-2024 Bamboo [...] underlying condition with diabetic polyneuropathy, 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 penitentiary insulin use (CMS/HCC); Amputation of right great toe (CMS/[facility]) Start: 07-31-2024 End: 07-31-2024 ambulatory SHYAM CAM Not Available Start: 07-24-2024 End: 07-24-2024 Bamboo flowsheet Shyam Cam DPM FACFAS Work Phone: [facility] Start: 07-24-2024 End: 07-24-2024 Bamboo flowsheet Shyam Georgiana Higginsce DPM FACFAS Work Phone: [facility] Start: 07-24-2024 End: 07-24-2024 Office outpatient visit 25 minutes Shyam Cam DPM FACFAS Work Phone: [facility] Comment on above: 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); Diabetes 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, 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 penitentiary insulin use ([facility]) Start: 07-24-2024 End: 07-24-2024 ambulatory SHYAM CAM Not Available Start: 07-23-2024 End: 07-23-2024 Bamboo flowsheet Arlen Sanchez DO Work Phone: [facility] Start: 07-23-2024 End: 07-23-2024 Bamboo flowsheet Arlen Sanchez DO Work Phone: [facility] Start: 07-23-2024 End: 07-23-2024 Office outpatient visit 25 minutes Arlen Sanchez DO Work Phone: [facility] Comment on above: Internal derangement [...] Request Start: 07-19-2024 End: 07-19-2024 [facility] Start: 07-17-2024 End: 07-18-2024 ambulatory Araceli BERMUDEZ Facility:[facility] Comment on above: Medication Question Start: 07-04-2024 [...] Office outpatient visit 15 minutes Shyam D Giselace DPM FACFAS Work Phone: [facility] Comment on above: 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) Start: 07-03-2024 End: 07-03-2024 ambulatory SHYAM D TUTU Not Available Start: 07-01-2024 End: 07-01-2024 Bamboo flowsheet Chelle Blank Apling FIBERGLASS MACHINE OPERATOR Work Phone: [facility] Start: 07-01-2024 End: 07-01-2024 Bamboo flowsheet Chelle Rosamaria Apling FIBERGLASS MACHINE OPERATOR Work Phone: [facility] Start: 07-01-2024 End: 07-01-2024 Office outpatient visit 15 minutes Chelle Brandon FIBERGLASS MACHINE OPERATOR Work Phone: [facility] Comment on above: Left shoulder pain, unspecified chronicity (Primary Dx); Arthritis of left acromioclavicular joint; Glenohumeral arthritis, left; Impingement of left shoulder; Internal derangement of left shoulder Start: 07-01-2024 End: 07-01-2024 ambulatory CHELLE Blank APLING Not Available Start: 06-26-2024 End: 06-26-2024 ambulatory [facility] Start: 06-25-2024 End: 06-25-2024 ambulatory KAJAL R DOLCE Not Available Start: 06-25-2024 End: 06-25-2024 Office outpatient visit 15 minutes Kajal R Dolce DPM FACFAS Work Phone: [facility] Comment on above: 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); Diabetes 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, 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 superintendent container terminal insulin use ([facility]); Venous insufficiency; Non-pressure chronic ulcer of other part of right lower leg with fat layer exposed ([facility]) Start: 06-25-2024 End: 06-25-2024 Bamboo flowsheet Kajal R Dolce DPM FACFAS Work Phone: [facility] Start: 06-25-2024 End: 06-25-2024 Bamboo flowsheet Kajal R Dolce DPM FACFAS Work Phone: [facility] Start: 06-19-2024 End: 06-19-2024 Telephone encounter Shyam Cam DPM FACFAS Work Phone: [facility] Start: 06-19-2024 End: 06-19-2024 ambulatory Kajal R Giselace Facility:[facility] Start: 06-19-2024 End: 06-19-2024 Office outpatient visit [...] underlying condition with diabetic polyneuropathy, 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 superintendent container terminal insulin use ([facility]); Amputation of right great toe (CMS/HCC) Start: 06-12-2024 End: 06-12-2024 Bamboo flowsheet Chelle Brandon NP Work Phone: [facility] Start: 06-12-2024 End: 06-12-2024 Bamboo flowsheet Chelle Brandon FIBERGLASS MACHINE OPERATOR Work Phone: [facility] Start: 06-12-2024 End: 06-12-2024 [facility] Start: 06-12-2024 End: 06-12-2024 Office outpatient visit 25 minutes Chelle Brandon NP Work Phone: [facility] Comment on above: Left shoulder pain, unspecified chronicity (Primary Dx); Arthritis of left acromioclavicular joint; Glenohumeral arthritis, left; Impingement of left shoulder Start: 06-12-2024 End: 06-12-2024 ambulatory CHELLE Blank APLING Not Available Start: 06-07-2024 End: 06-07-2024 [facility] Britney Hyde PhD Work Phone: Pain Recovery Comment on above: Adjustment disorder with depressed mood (Primary Dx); Complex regional pain syndrome type II of right lower limb; Chronic toe pain, right foot Start: 06-05-2024 End: 06-05-2024 ambulatory Kajal Kanchan Cam Facility:[facility] Start: 06-03-2024 End: 06-03-2024 Telephone encounter Chelle Brandon NP Work Phone: [facility] Start: 05-27-2024 End: 05-27-2024 ambulatory CHELLE Blank APLING Not Available Start: 05-23-2024 ambulatory Chiqui chapa MD Work Phone: Neurology Pain Comment on above: taking memantine HCL Start: 05-22-2024 End: 05-22-2024 ambulatory DAVID ACOSTA Facility:[facility] Gwynn shira Start: 05-13-2024 End: 05-13-2024 ambulatory Haider Hickman Facility:[facility] Gwynn shira Start: 05-09-2024 End: 05-09-2024 ambulatory BASSAM AGUILAR Not Available Start: 05-07-2024 ambulatory Morgan Trinidad Therapist Work Phone: Pain Recovery Comment on above: next step, resources Start: 05-07-2024 E-mail encounter fro m caregiver Morgan Trinidda Therapist Work Phone: Pain Recovery Start: 05-06-2024 End: 05-06-2024 [facility] Morgan Trinidad Therapist Work Phone: Pain Recovery Comment on above: Adjustment disorder with depressed mood (Primary Dx); Complex regional pain syndrome type II of right lower limb; Chronic toe pain, right foot Start: 04-24-2024 End: 04-24-2024 ambulatory HAIDER HICKMAN Facility:[facility] Start: 04-24-2024 End: 04-24-2024 Patient encounter [...] End: 04-23-2024 ambulatory Haider Hickman Facility: [facility] Start: 04-03-2024 End: 04-03-2024 ambulatory HERBERTH ARAUJO Facility:[facility] Start: 03-26-2024 End: 03-26-2024 ambulatory Haider Hickman Facility: [facility] Start: 03-19-2024 Telephone encounter Herberth meyers MD, PhD Work Phone: Pain Management Comment on above: Nurse Triage Call Start: 03-08-2024 End: 03-08-2024 ambulatory Haider Hickman Facility:[facility] Start: 03-07-2024 End: 03-07-2024 ambulatory Haider Hickman Facility: [facility] Start: 02-29-2024 End: 02-29-2024 ambulatory HERBERTH ARAUJO Facility:[facility] Start: 02-29-2024 End: 02-29-2024 Patient encounter [...] Start: 02-05-2024 End: 02-05-2024 ambulatory FRANCOISE SINGLETARY Facility:[facility] Start: 02-05-2024 End: 02-05-2024 Patient encounter procedure Francoise Singletary MD Work Phone: Pain Management Comment on above: Chronic toe pain, ri ght foot (Primary Dx); Painful diabetic neuropathy (HCC); Class 3 severe obesity with serious comorbidity and body mass index (BMI) of 40.0 to 44.9 in adult, unspecified obesity type (HCC) Start: 01-24-2024 End: 01-24-2024 ambulatory Araceli BERMUDEZ Facility:[facility] Start: 01-22-2024 End: 01-22-2024 ambulatory PATRICIA MCPHERSON Not Available Start: 01-04-2024 End: 01-04-2024 ambulatory Araceli BERMUDEZ Facility:[facility] Start: 01-03-2024 End: 01-03-2024 ambulatory CHELLE BRANDON Not Available Start: 12-29-2023 End: 12-29-2023 ambulatory Araceli BERMUDEZ Facility:[facility] Start: 12-26-2023 End: 12-26-2023 ambulatory Haider Hickman Facility:[facility] Start: 12-14-2023 End: 12-14-2023 ambulatory BASSAM AGUILAR Not Available Start: 10-18-2023 End: 10-18-2023 ambulatory Araceli BERMUDEZ Facility: [facility] Start: 09-20-2023 End: 09-20-2023 ambulatory Haider DavenportSuzie Kristofer Facility:[facility] Start: 09-12-2023 End: 09-12-2023 ambulatory Tondra Mapus Other [facility] [employer] Other Start: 09-12-2023 Telephone encounter Tondra Mapus [facility] Start: 09-11-2023 (DM) Diabetes Tondra Mapus [facility] Start: 09-11-2023 End: 09-12-2023 ambulatory MD Scarlet Johnson Work Phone: [facility] Other Start: 09-11-2023 End: 09-11-2023 Discharged Recurring MD Scarlet Johnson Work Phone: [facility] Work Phone: Start: 09-11-2023 End: 09-11-2023 Patient encounter procedure MD Scarlet Johnson Work Phone: [facility] Work Phone: Start: 08-24-2023 End: 08-24-2023 Patient encounter procedure MD Scarlet Johnson Work Phone: [facility] Start: 08-24-2023 End: 08-24-2023 ambulatory MD Scarlet Johnson Work Phone: [facility] Work Phone: Start: 08-24-2023 Office outpatient ne w 60 minutes Eligio Soni [facility] Start: 08-24-2023 End: 08-24-2023 Patient encounter procedure MD Scarlet Johnson Work Phone: [facility] V[facility] Work Phone: Start: 08-21-2023 End: 08-21-2023 ambulatory Haider Hickman Facility:[facility] Start: 07-26-2023 End: 07-26-2023 ambulatory Haider Hickman Facility:[facility] Start: 06-14-2023 End: 06-14-2023 ambulatory Tondra Mapus Other [employer] Other Start: 06-14-2023 Telephone encounter Tondra Mapus Rojel[facility] Start: 06-09-2023 End: 06-09-2023 ambulatory Carito West Other [facility] Other Start: 06-09-2023 Nursing evaluation o f patient and report Carito [facility] Start: 06-09-2023 Registered Recurring MD Scarlet franks Work Phone: [facility] Work Phone: Start: 05-31-2023 End: 05-31-2023 ambulatory Tondra Mapus Other [employer] Other Start: 05-31-2023 Telephone encounter Tondra Emi [facility] Start: 03-07-2023 Follow-up encounter Terry moreno [facility] Start: 03-07-2023 End: 03-08-2023 ambulatory Terry Kelley [address] [address] [employer] Other Start: 02-17-2023 End: 02-17-[address] JOVITA WOODARD . Facility: Start: 02-14-2023 (DM) Diabetes Tondra Emi [facility] Start: 02-14-2023 End: 02-14-2023 ambulatory Tondra Mapus Other [employer] Other Start: 01-20-2023 ([facility] RD FU) [facility] F/ U Registerd Film Crew Member [facility] Start: 01-20-2023 End: 01-20-2023 ambulatory Carito West Other [facility] Other Start: 01-05-2023 End: 01-05-2023 ambulatory Terry Kelley Other [employer] Other Start: 01-05-2023 Follow-up encounter Terry moreno [...] ambulatory DR TERRY KELLEY Facility:[facility] Start: 11-24-2022 ([facility] WMNI) WMN Init ial Provider Carito West [facility] Start: 11-24-2022 End: 11-24-2022 ambulatory Carito West Other [employer] Other Start: 11-22-2022 End: 11-22-2022 ambulatory Tondra Mapus Other [employer] Other Start: 11-22-2022 Nursing evaluation o f patient and report Tondra Juanitaus [facility] Start: 11-18-2022 End: 11-18-2022 ambulatory Terry Kelley Other [employer] Other Start: 11-18-2022 Nutrition therapy Terry johnson [facility] Start: 11-08-2022 End: 11-09-[address] SCARLET JOHNSON . Facility:[facility] Start: 11-07-2022 (DM) Diabetes Tondra Juanitaus [facility] Start: 11-07-2022 End: 11-07-2022 ambulatory Tondra Mapus Other [employer] Other Start: 10-18-2022 (RD) Head Operator Carito [facility] Start: 10-18-2022 End: 10-18-2022 ambulatory Carito West Other [facility] Other Start: 08-18-2022 End: 08-19-[address] BRITTNY MORALES Facility:[facility] Start: 2022 ([facility] DB FU) [facility] Diabetes F/U Carito West [facility] Start: 2022 End: 08-11-[address] ARACELI BERMUDEZ [address] Other Start: 07-29-2022 End: 07-30-[address] SCARLET JOHNSON . Facility: Start: 07-27-2022 (DM) Diabetes Tondra Mapus [facility] Start: 07-27-2022 End: 07-27-2022 ambulatory Tondra Mapus Other [employer] Other Start: 06-08-2022 (Film Crew Member) Film Crew Member Carito [facility] Start: 06-08-2022 End: 06-08-2022 ambulatory Carito West Other [employer] Other Start: 04-21-2022 (DM) Diabetes Tondra Mapus [facility] Start: 04-21-2022 End: 04-21-2022 ambulatory Tondra Mapus Other [employer] Other Start: 04-21-2022 Telephone encounter Tondra Mapus [facility] Start: 04-07-2022 End: 04-08-[address] SCARLET JOHNSON . Facility: Start: 10-21-2021 (DM) Diabetes Tondra Mapus [facility] Start: 10-21-2021 End: 10-21-2021 ambulatory Tondra Mapus Other [facility] Other Start: 07-21-2021 Office outpatient ne w 45 minutes Morgan Kunz [facility] Procedures Date Procedure Procedure Detail Performing Clinician Start: 06-19-2024 Radex foot complete minimum 3 views Shyam Cam DPM [facility] Work Phone: Start: 06-12-2024 Arthrocentesis aspir &/inj major jt/bursa w/o us Chelle Brandon FIBERGLASS MACHINE OPERATOR Work Phone: Start: 08-24-2023 Duplex scan of lower limb veins MD Scarlet Johnson Work Phone: Plan of Treatment Date Care Activity Detail Author Start: 07-23-2025 ambulatory Ambulatory Facility:[facility] Start: 05-15-2025 ambulatory Ambulatory Facility:[facility] Start: 02-03-2025 ambulatory Ambulatory Facility:[facility] [place] Start: 01-21-2025 End: 01-21-2025 Patient encounter procedure 01/21/2025 3:10 PM EDT Office Visit [facility] [address] [place] [address] Patricia Mcpherson, PA [address] [place] [address] [facility] Start: 12-26-2024 End: 12-26-2024 Patient encounter procedure 12/26/2024 11:00 AM EDT Procedure Visit [facility] [address] [place] [address] Bassam Aguilar DPM [address] [facility] [address] [place] [address] [facility] Start: 10-17-2024 End: 10-17-2024 Patient encounter procedure [facility] Comment on above: Diabetes mellitus du e to underlying condition with diabetic polyneuropathy, 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 penitentiary insulin use ([facility]) (Primary Dx); Pain due to onychomycosis of toenails of both feet; Venous insufficiency Start: 08-29-2024 End: 08-29-2024 Patient encounter procedure 08/29/2024 9:30 AM EST Office Visit [facility] [address] [place] [id number] Matthew May, DO [address] [place], [place] [id number] Arrived [facility] Comment on above: Arrived Start: 08-27-2024 End: 08-27-2024 Patient encounter procedure 08/27/2024 3:15 PM EST Office Visit [facility] [place] [address] [facility] [place] [address] Gallo Gayle, DO [address] [place], [place] [id number] [facility] [place] [facility] Start: 08-14-2024 End: 08-14-2024 Patient encounter procedure 08/14/2024 10:00 AM EST Office Visit [facility] [address] [place] [address] Chiqui Robles MD [address] [place], [place] [id number] 1 Month Follow Up Neurology Pain Comment on above: 1 Month Follow Up Start: 2024 RSV Vaccine (1 - 1-d ose 75+ series) RSV Vaccine (1 - 1-dose 75+ series) [facility] Start: 08-08-2024 End: 08-08-2024 Patient encounter procedure [facility] Comment on above: Diabetes mellitus du e to underlying condition with diabetic polyneuropathy, 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 penitentiary insulin use ([facility]) (Primary Dx); Pain due to onychomycosis of toenails of both feet; Amputation of toe of right foot (CMS/HCC) Start: 08-06-2024 End: 08-06-2024 Patient encounter procedure 08/06/2024 9:45 AM EDT Office Visit [facility] [address] [place] [address] Khai Heard, DO [address] [place] [address] [facility] Start: 07-31-2024 End: 07-31-2024 [...] EDT Procedure Visit [facility] [address] [facility] [address] [place] [address] Bassam Aguilar, DPSherrell [address] [facility] 5 [place] [address] [facility] Start: 07-09-2024 End: 07-09-2024 Patient encounter procedure 07/09/2024 9:45 AM EDT Office Visit [facility] [address] [facility] [address] [place] [address] Arlen Sanchez DO 112 [facility] 150 [place] [address] [facility] Start: 07-03-2024 End: 07-03-2024 Professional / ancillary services management 07/03/2024 2:00 PM EDT Ancillary Procedure [facility] MR [address] [facility] [address] [place] [id number] [facility] MR Start: 07-03-2024 End: 07-03-2024 Patient encounter procedure [facility] P[facility] Comment on above: Arrived Start: 07-02-2024 End: 07-02-2024 Professional / ancillary services management 07/02/2024 10:15 AM EDT Ancillary Procedure [facility] [address] [place] [address] [facility] MR Start: 07-01-2024 End: 07-01-2025 [...] EDT Office Visit [facility] [address] [place] [address] Kajal Cam, DPM FACFAS [address] [place] [address] [facility] Start: 06-24-2024 End: 06-24-2024 Patient encounter procedure 06/24/2024 9:15 AM EDT Office Visit [facility] [address] [place] [address] Chelle Brandon NP [address] [place] [address] [facility] Start: 06-20-2024 End: 06-20-2024 Patient encounter procedure 06/20/2024 12:20 PM EDT Procedure Visit [facility] EXT DEP Shyam Cam, DPM FACFAS [address] [place] [address] [facility] Start: 06-19-2024 End: 06-19-2024 Patient encounter procedure 06/19/2024 8:30 AM EDT Office Visit [facility] [address] [place] [id number] Shyam Cam, DPM FACFAS [address] [place] [address] [facility] Start: 06-12-2024 End: 06-12-2024 Patient encounter procedure [facility] Comment on above: Left shoulder pain, unspecified chronicity (Primary Dx); Arthritis of left acromioclavicular joint; Glenohumeral arthritis, left Start: 06-09-2024 Covid-19 Vaccine () Covid-19 Vaccine () [facility] Start: 06-09-2024 Influenza vaccination [facility] Start: 06-07-2024 End: 06-07-2024 ambulatory 06/07/2024 12:30 PM EDT [facility] [address] [place] [address] Britney Hyde, PhD [address] [place], [place] [id number] [facility] Comment on above: [facility] Start: 05-06-2024 End: 05-06-2024 ambulatory 05/06/2024 9:00 AM EDT [facility] [address] [place] [address] Morgan Trinidad, Therapist [address] [place] [address] [facility] Comment on above: [facility]YCH Start: 04-17-2024 End: 04-17-2024 Patient encounter procedure 04/17/2024 10:00 AM EDT Office Visit Pain Management [address] [place] [address] Eufemia Ortiz PA-C [address] [place] [address] [facility] Pain Management Comment on above: SUTURAL REMOVAL Start: 04-03-2024 End: 04-03-2024 Admission to same day surgery center 04/03/2024 10:00 AM EDT - 04/03/2024 11:05 AM EDT Surgery Pain Management [address] [place] [id number] Herberth Araujo MD, PhD [address] [place] [address] Right L4 and L5 DRG Trial Pain [...] 10:00 AM EDT Hospital Encounter Pain Management [address] [place] [address] Herberth Araujo MD, PhD [address] [place] [address] Chronic toe pain, right foot [M79.674, G89.29], Complex regional pain syndrome type II of right lower limb [G57.71] Pain Management Comment on above: Chronic toe pain, ri ght foot [M79.674, G89.29], Complex regional pain syndrome type II of right lower limb [G57.71] Start: 10-09-2023 Advance Directive Discussion Advance Directive Discussion [facility] Start: 10-09-2023 Behavioral Health Screening Behavioral Health Screening [facility] Start: 06-09-2023 Covid-19 Vaccine () Covid-19 Vaccine ( season) [facility] Start: 10-16-2019 Pneumococcal Vaccine : 65+ Years (2 of 2 - PCV) Pneumococcal Vaccine: 65+ Years (2 of 2 - PCV) [facility] Start: 2014 Pneumococcal Vaccine : 65+ (1 of 1 - PCV) Pneumococcal Vaccine: 65+ (1 of 1 - PCV) [facility] Start: 2009 RSV Vaccine (1 - 1-d ose 60+ series) RSV Vaccine (1 - 1-dose 60+ series) [facility] Start: 2009 RSV Vaccine (1 - Ris k 60-74 years 1-dose series) RSV Vaccine (1 - Risk 60-74 years 1-dose series) [facility] Start: 1999 Shingrix Vaccine (1 of 2) Rabago grix Vaccine (1 of 2) [facility] Start: 1994 Diabetes Screening Diabetes Screenin g [facility] Start: 1994 Screening for malign ant neoplasm of colon [facility] Start: 1984 Lipid panel Lipid Screening [facility] Start: 1968 Urine microalbumin profile DTa P,Tdap,Td Vaccine (1 - Tdap) [facility] Start: 1967 Annual PCP Team Improvement Director hai Disease Visit Annual PCP Team Chronic Disease Visit [facility] Start: 1967 Anxiety Screening Anxiety Screening [facility] Start: 1967 Depression Screening Depression Scre ening [facility] Start: 1967 Hepatitis B surface antibody level LDL Cholesterol [facility] Start: 1967 Hepatitis C screening Hepatitis C Sc ang [facility] Start: 1959 Diabetic foot examination Diabetic F oot Exam [facility] Start: 1959 Glaucoma screening Dilated Retinal E xam [facility] Start: 1959 Hepatitis B screening Urine Albumin:Creatinine Ratio [facility] Start: 1955 Pneumococcal Vaccine : 65+ (1 of 2 - PCV) Pneumococcal Vaccine: 65+ (1 of 2 - PCV) [facility] Start: 1954 Hemoglobin A1c measurement HbA1C [facility] Start: 1949 Screening for malign ant neoplasm of colon [facility] Immunizations Immunization Date Immunization Notes Care Provider Margarita sunshine 07-31-2024 influenza virus vaccine, unspecified formulation Khai Heard DO Work Phone: [facility] 06-15-2023 influenza virus vaccine, unspecified formulation Chelle Brandon FIBERGLASS MACHINE OPERATOR Work Phone: [facility] 12-30-2020 COVID-19 Vaccine Moderna - Documentation Purposes Only Morgan Kunz Other [facility] 12-02-2020 COVID-19 Vaccine Moderna - Documentation Purposes Only Morgan Kunz Other [facility] Payers Date Payer Category Payer Private Health Insurance [employer] [id number] 2021 Unknown [id number] 2017 Self-pay [id number] 2017 Unknown [id number] 2012 Medicare [id number]. [id number]. [id number] 2012 Medicare [id number] 1959 Medicare [id number] 2.16.840.1.650873.19 1959 Unknown [id number] 2.16.840.1.971822.19 1949 Unknown [id number] 2.16.840.1.115290.3.579.2. 593 1949 Unknown [id number] 2.16.840.1.796577.3.579.2. 593 1949 Unknown [id number] 2.16.840.1.971880.3.579.2. 593 1949 Unknown [id number] 2.16.840.1.528245.3.579.2. 593 1949 Unknown [id number] 2.16.840.1.781097.3.579.2. 593 1949 Unknown [id number] 2.16.840.1.572127.3.579.2. 593 1949 Unknown [id number] 2.16.840.1.939369.3.579.2. 593 1949 Unknown [id number] 2.16.840.1.541325.3.579.2. 593 1949 Unknown [id number] 2.16.840.1.273372.3.579.2. 593 1949 Unknown [id number] 2.16.840.1.378447.3.579.2. 593 1949 Unknown [id number] 2.16.840.1.209787.3.579.2. 593 1949 Unknown [id number] 2.16.840.1.373643.3.579.2. 593 1949 Unknown [id number] 2.16.840.1.290154.3.579.2. 727 1949 Unknown [id number] 2.16.840.1.171386.3.579.2. 727 1949 Unknown [id number] 2.16.840.1.199608.3.579.2. 727 1949 Unknown [id number] 2.16.840.1.610383.3.579.2. 727 1949 Unknown [id number] 2.16.840.1.056207.3.579.2. 727 1949 Unknown [id number] 2.16.840.1.667315.3.579.2. 1949 Unknown [id number] 2.16.840.1.735858.3.579.2 1949 Unknown [id number] 2.16.840.1.448770.3.579.2 1949 Unknown [id number] 2.16.840.1.202349.3.579.2 1949 Unknown [id number] 2.16.840.1.640305.3.579.2 1949 Unknown [id number] 2.16.840.1.297417.3.579.2 1949 Unknown [id number] 2.16.840.1.708692.3.579.2 1949 Unknown [id number] 2.16.840.1.082520.3.579.2 1949 Unknown [id number] 2.16.840.1.417094.3.579.2 1949 Unknown [id number] 2.16.840.1.535261.3.579.2 1949 Unknown [id number] 2.16.840.1.573801.3.579.2 1949 Unknown [id number] 2.16.840.1.512154.3.579.2 1949 Unknown [id number] 2.16.840.1.216389.3.579.2 1949 Unknown [id number] 2.16.840.1.656545.3.579.2 1949 Unknown [id number] 2.16.840.1.674423.3.579.2 1949 Unknown [id number] 2.16.840.1.236796.3.579.2. 72 1949 Unknown [id number] 2.16.840.1.620783.3.579.2. 1949 Unknown [id number] 2.16.840.1.775997.3.579.2. 1949 Unknown [id number] 2.16.840.1.279577.3.579.2. 1949 Unknown [id number] 2.16.840.1.909138.3.579.2. 1949 Unknown [id number] 2.16.840.1.716626.3.579.2. 1949 Unknown [id number] 2.16.840.1.819398.3.579.2. 1949 Unknown [id number] 2.16840.1.239409.3.579.2. 1258 1949 Unknown [id number] 2.16840.1.239349.3.579.2. 1258 1949 Unknown [id number] 2.16840.1.176749.3.579.2. 1258 1949 Unknown [id number] 2.16.840.1.136208.3.579.2. 1258 1949 Unknown [id number] 2.16840.1.444873.3.579.2. 1258 1949 Unknown [id number] 2.16.840.1.303582.3.579.2. 1258 1949 Unknown [id number] 2.16.840.1.563029.3.579.2. 1258 1949 Unknown [id number] 2.16.840.1.258599.3.579.2. 1258 1949 Unknown [id number] 2.16.840.1.272751.3.579.2. 125 1949 Unknown [id number] 2.16.840.1.220643.3.579.2. 1258 1949 Unknown [id number] 2.16.840.1.159667.3.579.2. 1258 1949 Unknown [id number] 2.16.840.1.420460.3.579.2. 1258 1949 Unknown [id number] 2.16.840.1.192774.3.579.2. 1258 1949 Unknown [id number] 2.16.840.1.594301.3.579.2. 1258 1949 Unknown [id number] 2.16.840.1.903423.3.579.2. 1258 1949 Unknown [id number] 2.16840.1.354882.3.579.2. 1258 1949 Unknown [id number] 2.16840.1.378005.3.579.2. 1258 1949 Unknown [id number] 2.16.840.1.724635.3.579.2. 1258 1949 Unknown [id number] 2.16.840.1.056455.3.579.2. 1258 1949 Unknown [id number] 2.16840.1.406840.3.579.2. 1258 1949 Unknown [id number] 2.16.840.1.330211.3.579.2. 125 1949 Unknown [id number] 2.16.840.1.915351.3.579.2. 72 1949 Unknown [id number] 2.16.840.1.272519.3.579.2. 72 1949 Unknown [id number] 2.16.840.1.733241.3.579.2. 72 1949 Unknown [id number] 2.16.840.1.925778.3.579.2. 196 1949 Unknown [id number] 2.16.840.1.667853.3.579.2. 196 1949 Unknown [id number] 2.16.840.1.454705.3.579.2. 196 1949 Unknown [id number] 2.16.840.1.239327.3.579.2. 903 1949 Unknown [id number] 2.16.840.1.585241.3.579.2. 727 1949 Unknown [id number] 2.16.840.1.243807.3.579.2. 72 1949 Unknown [id number] 2.16.840.1.859043.3.579.2. 72 1949 Unknown [id number] 2.16.840.1.414872.3.579.2. 72 1949 Unknown [id number] 2.16.840.1.011399.3.579.2. 72 1949 Unknown [id number] 2.16.840.1.422936.3.579.2. 72 1949 Unknown [id number] 2.16.840.1.831385.3.579.2. 72 1949 Unknown [id number] 2.16.840.1.122876.3.579.2. 72 1949 Unknown [id number] 2.16.840.1.748988.3.579.2. 72 Unknown [facility] [id number] Unknown [id number] 2.16.840.1.948452.3.579.2. 531 Unknown [id number] 2.16.840.1.575218.3.579.2. 531 Unknown [id number] 2.16.840.1.966702.3.579.2. 531 Social History Date Type Detail Facility Unknown if ever smoked [facility] Other Start: 02-05-2024 End: 08-29-2024 Sex Assigned At [facility] Start: 1950 Sex Assigned At Male [facility] Start: 07-09-2018 End: 05-18-2023 Tobacco smoking status [facility] Never smoked tobacco (finding) [facility] Tobacco smoking status [facility] Tobacco smoking consumption unknown [facility] Start: 02-05-2024 End: 08-29-2024 History of Social function [facility] National Score (1-100), lower number is lower risk 67 [facility] Start: 1950 Sex Assigned At Not on file [facility] Start: 05-18-2023 End: 02-29-2024 Tobacco use and exposure Smokeless tobacco non-user [facility] Start: 02-29-2024 End: 10-17-2024 Alcohol intake Ex-drinker (finding) [facility] NEGATED: Highlighted rowStart: NINF History of tobacco use Passive smoker [facility] Procedure Code Equipment Code Equipment Original Text Equipment Identifier Dates ESWL, one kidney STENT CONTOUR 4 .8FR X 22-30CM [facility] Start: 06-07-2018 ESWL, one kidney STENT CONTOUR 4 .8FR X 22-30CM [facility] Start: 06-07-2018 Start: 12-11-2017 Lead Axium Slimt ip 1mm 5mm Space 50mm Neurostimulator Front Load 4 [id number] Start: 04-03-2024 Clinical Notes 07-21-2021 to 12-18-2024 Bassam Aguilar, AUGUSTIN - 10/17/2024 10:20 AM Jeni May DO - 08/29/2024 9:30 AM Chiqui Live MD - 08/14/2024 10:29 AM Claudia Burgos MD - 08/14/2024 9:55 AM EST Note Date & Type Note Facility 12-18-2024 Note [place] [facility] Note Reason for cardiology [...] DM type 2 (diabetes mellitus, type 2) ([facility]), HLD (hyperlipidemia), [...] DAY SUBCUTANEOUSLY DIRECTED, Disp: , Rfl: omega 5-pgl-jxg-fish oil (Fish OiL) 1,200 (144-216) mg capsule, [...] Ht 1.727 m (more content not included)... [facility] 10-17-2024 History of Present illness Narrative Patient: [...] Violence: Unknown (11/30/2023) Received from [facility] [place] [employer] Fear of [...] underlying condition with diabetic polyneuropathy, 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 superintendent container terminal insulin use ([facility]) 2. Pain [...] Bassam Aguilar DPM documented in this encounter [facility] 08-29-2024 History of Present illness Narrative Images from the original note were not included. Chief complaint: Neuropathic pain Subjective Dong Matayehuda, 74 y.o., male Dong presents today for [...] believes a few years ago in the [place] office. Review of Systems Constitutional: Negative for [...] Diagnosis Date COVID-19 vaccine series completed Diabetes ([facility]/HCC) Hypercholesterolemia ([facility]/HCC) Hypertension ([facility]) PVD (peripheral vascular disease) ([facility]) Past Surgical [...] , wrist extensors , wrist flexor , account relationship manager strength 5/5. LUE Strength deltoid , biceps , triceps , wrist extensors , wrist flexor , account relationship manager strength 5/5. RLE Strength illopsoas, quadriceps, tibialis [...] reflex 0. Del Real's sign negative. Coordination: Xqahig-sn-cuez testing and rapid alternating movements are normal [...] is already established with pain management in [place] and suggest that they can see them [...] to ketamine infusions with pain management in [place]. I suggested, if epidural is not successful, that they consider follow up thereof. The patient can follow up with us on an as-needed basis. Thank you for consultation. Pt has been fully educated on their diagnosis, lab results, treatment options, follow up plan, return instructions, and discussion of mental health issues documented in this encounter [facility] 08-14-2024 Note HNO ID: [id number] Author: CHIQUI ROBLES MD Service: ? Author Type: Physician Type: Progress Notes Filed: 08/26/2024 16:34 Note Text: [facility] STAFF PHYSICIAN NOTE OF PERSONAL [...] - psychotherapy was utilized during the visit. Vpxj-mc-kzrl time: 98435 (16-37 mins) actual time spend in psychotherapy 18 minutes Type of therapeutic intervention:Supportive Target symptoms: Pain coping skills and Acceptance and adapting Progress/Session notes:processing Interactive Complexity: None STAFF PHYSICIAN:: Chiqui Robles MD DATE of SERVICE: 08/14/2024 [facility] 08-14-2024 History of Present illness Narrative [facility] STAFF PHYSICIAN NOTE OF PERSONAL [...] - psychotherapy was utilized during the visit. Rtem-gy-fimz time: 17924 (16-37 mins) actual time spend in psychotherapy 18 minutes Type of therapeutic intervention:Supportive Target symptoms: Pain coping skills and Acceptance and adapting Progress/Session notes:processing Interactive Complexity: None STAFF PHYSICIAN:: Chiqui Robles MD DATE of SERVICE: 08/14/2024 [facility] [place] August 14, 2024 This is a face [...] 2024 10:37 AM documented in this encounter [facility] 08-14-2024 Note HNO ID: [id number] Author: CLAUDIA CHILEL MD Service: ? Author Type: Resident Type: Progress Notes Filed: 08/14/2024 10:51 Note Text: [facility] [place] August 14, 2024 This is a face [...] MD, AMANDA August 14, 2024 10:37 AM [facility] 08-08-2024 History of Present illness Narrative [...] Violence: Unknown (11/30/2023) Received from [facility], [facility] [place] [facility] [employer] [facility] Fear of [...] underlying condition with diabetic polyneuropathy, 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 penitentiary insulin use ([facility]) 2. Pain due to onychomycosis of toenails of both feet 3. Amputation of toe of right foot ([facility]) PLAN Debride [...] Bassam Aguilar DPM documented in this encounter [facility] 08-07-2024 Note [place] [facility] Note Reason for cardiology [...] DM type 2 (diabetes mellitus, type 2) ([facility]), HLD (hyperlipidemia), [...] DAY SUBCUTANEOUSLY DIRECTED, Disp: , Rfl: omega 7-cza-tje-fish oil (Fish OiL) 1,200 (144-216) mg capsule, [...] right bundle branch block Echo 07/08/2024 at [facility] Echo 12/30/2022 Echo 11/15/2016 Nuclear stress test 12/29/2022 at [facility] EKG portion Assessment and Plan: Coronary artery disease, status post prior PTCA of the left circumflex artery and RCA in 2012 Last stress test 12/30/2022 which was negative for ischemia with normal ejection fraction He is on aspirin, metoprolol, and simvastatin. Clinically stable Severe LVH on recent echo probably due to uncontrolled hypertensi (more content not included)... [facility] 07-31-2024 History of Present illness Narrative Images [...] series completed Diabetes (CMS/HCC) Hypercholesterolemia (CMS/HCC) Hypertension ([facility]/HCC) PVD (peripheral vascular disease) ([facility]) Medications: Current [...] < 3 seconds Digits 1-5 bilateral NEURO: [place] Crista 5.07 monofilament was intact B/L. Vibratory [...] underlying condition with diabetic polyneuropathy, 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 superintendent container terminal insulin use ([facility]) 3. Amputation of right great toe ([facility]) PLAN Patient had no improvement with diagnostic injection. I feel the this point the pain is not related to his toe but appears to be from his low back sciatic issue spoke with his primary care physician they plan to work him up for low back concerns AUGUSTIN Horn documented in this encounter [facility] 07-24-2024 History of Present illness Narrative [...] < 3 seconds Digits 1-5 bilateral NEURO: [place] Crista 5.07 monofilament was intact B/L. Vibratory [...] leg. AUGUSTIN Horn documented in this encounter [facility] 07-23-2024 History of Present illness Narrative Images from the original note were not included. HISTORY OF PRESENT ILLNESS: Dong Whitmore is an 73 y.o. @ male. Chief complaint LT shoulder pain LT Shoulder: here for MRI results [facility] 07/15/24 8 1/2 weeks ago pt fell, went to [facility] ER on 05/24/24 and had xrays [...] he does these. TX: LT shoulder xrays [facility] 05/24/24, acetiminophen with codeine, ice, bengay, 06/12/24 subacromial depo medrol injection, MRI [facility] 07/15/24, doing pendulums. Pt is RT handed. [...] IMAGING: MRI of the shoulder from the [facility] had revealed a full-thickness tear [...] Sanchez/darion Sanchez D.O. documented in this encounter [facility] 07-19-2024 Note Cardiovascular Medic ine [place] [facility] SUBJECTIVE No chief complaint on file. [...] Obesity Sleep apnea Type 2 diabetes mellitus ([facility]/HCC) Complex regional pain syndrome type II of right lower limb Coronary arteriosclerosis in [place] artery Current use of insulin ([facility]) Dietary counseling and surveillance Past Medical History: Diagnosis Date CAD (coronary artery disease) DM type 2 (diabetes mellitus, type 2) ([facility]) HLD (hyperlipidemia) [...] DAY SUBCUTANEOUSLY DIRECTED, Disp: , Rfl: omega 9-bvp-fdm-fish oil (Fish OiL) 1,200 (144-216) mg capsule, [...] Behavior: Behavior nor (more content not included)... [facility] 07-18-2024 Telephone encounter Note Patient told to schedule an appt to discuss in detail [facility] 07-18-2024 Miscellaneous Notes Patient told to schedule an appt to discuss in detail documented in this encounter [facility] 07-17-2024 Note Patient Education Nephrology Dietary Guidelines [...] ? 8 oz (237 mL) of milk, razhddu-ydyoqcgjuken-zuclo milk, and calcium-fortifiedfruit juice. Calcium-fortified means that [...] Spinach (cooked), rhubarb, beets, sweet potatoes, and [place] chard. ? Peanuts. ? Potato chips, tanzanian fries, and baked potatoes with skin on. ? Nuts and nut products. ? Chocolate. ? If you regularly take a diuretic medicine, make sure to eat at least 1 or 2 servings of fruits or vegetables that are high in potassium each day. These include: ? Avocado. ? Banana. ? Giles, prune, carrot, or tomato juice. ? Baked [...] fish oil, or vitamin B6. ? Take peyx-esv-gcalfit and prescription medicines only as told by your health care provider. These include suppleme (more content not included)... [facility] 07-04-2024 Telephone encounter Note Patient's called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 penitentiary insulin use (CMS/HCC) Amputation of right great toe (CMS/HCC) documented in this encounter [facility]* Diagnosis Amputation of toe of right foot (CMS/HCC)- Primary Diabetes 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, 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 superintendent container terminal insulin use (CMS/[facility]) Pain due to onychomycosis of toenails of both feet documented in this encounter [facility]* Diagnosis Internal derangement of left shoulder- Primary Complete tear of left rotator cuff, 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 traumatic documented in this encounter [facility] note* Diagnosis Complex regional pain syndrome type II of right lower limb Chronic toe pain, right foot Class 3 severe obesity with serious comorbidity and body mass index (BMI) of 40.0 to 44.9 in adult, unspecified obesity type (HCC) [facility] Diagnosis Right foot pain- Primary Pain in soft tissues of limb Diabetic polyneuropathy associated with type 2 diabetes mellitus (CMS/HCC) documented in this encounter [facility]* Diagnosis Acquired deformity of right toe- Primary Left shoulder pain, unspecified chronicity- Primary Arthritis of left acromioclavicular joint Glenohumeral arthritis, left Impingement of left shoulder documented in this encounter [facility] HealthcareEvaluation note* Diagnosis Acquired deformity of right toe- Primary Diabetes 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, 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 penitentiary insulin use (CMS/[facility]) Venous insufficiency Unspecified venous (peripheral) insufficiency Non-pressure chronic ulcer of other part of right lower leg with fat layer exposed ([facility]) Left shoulder pain, unspecified chronicity- Primary Arthritis of left acromioclavicular joint Glenohumeral arthritis, left Impingement of left shoulder documented in this encounter [facility]* Diagnosis Left shoulder pain, unspecified chronicity- Primary Arthritis of left acromioclavicular joint Glenohumeral arthritis, left Impingement of left shoulder documented in this encounter [facility]* Diagnosis Acquired deformity of right toe- Primary Diabetes 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, 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 penitentiary insulin use ([facility]) Amputation of right great toe ([facility]) documented in this encounter [facility]* Diagnosis Acquired deformity of right toe Left shoulder pain, unspecified chronicity- Primary Arthritis of left acromioclavicular joint Glenohumeral arthritis, left Impingement of left shoulder documented in this encounter [facility] HealthcareEvaluation note* Diagnosis Left shoulder pain, unspecified chronicity- Primary Arthritis of left acromioclavicular joint Glenohumeral arthritis, left Impingement of left shoulder Internal derangement of left shoulder documented in this encounter [facility] HealthcareEvaluation note* Diagnosis Acquired deformity of right toe- Primary documented in [facility] encounter [facility]* Diagnosis Internal derangement of left shoulder- Primary documented in this encounter [facility]* Diagnosis Diabetes 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, 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 penitentiary insulin use ([facility])- Primary Pain due to onychomycosis of toenails of both feet Venous insufficiency Unspecified venous (peripheral) insufficiency documented in this encounter [facility] HealthcareHistory general Narrative - Reported* Type [...] me tatarsal and partial right first metatarsal 2--19 Hospitalization History see above [facility] Other History general Narrative - Reported* Type [...] Foot Surgery 10/27/2021 Hospitalization History see above [facility] Other History general Narrative - Reported* Type [...] Foot Surgery 10/27/2021 Hospitalization History see above [facility] Other Reason for visit Narrative* Consultation (Routine) - Closed Specialty Diagnoses / Procedures Referred By Contac t Referred To Contact Neurology Diagnoses Neuropathic pain, MRI / labs @ [facility] , ref by Dr Hickman Procedures [place] OFFICE/OUTPATIENT NEW LOW MDM 30 MINUTES NEURO NEW PATIENT Haider Hickman MD [address] [place] [address] Phone: tel: fax: Matthew May DO [address] [place] [address] Phone: tel: fax: Referral ID Status Reason Start Date Expiration Date V isits Requested Visits Authorized [id number] Closed Consult and Treat 08/22/2024 02/18/2025 1 1 [facility] Healthcare Summary Purpose Family History No [...] wo IV contrast Chelle Brandon NP [address] [address] Referral ID Status Reason Start Date Expiration Date V isits Requested Visits Authorized [id number] Pending Review 07/01/2024 12/28/2024 1 1 Specialty Diagnoses / Procedures Referred By Contac t Referred To Contact Orthopaedic Surgery Diagnoses Impingement of left shoulder Procedures L Inj/Asp: L subacromial bursa Chelle Brandon NP [address] [facility] [address] [place] [address] Referral ID Status Reason Start Date Expiration Date V isits Requested Visits Authorized [id number] Authorized 06/12/2024 12/09/2024 1 1 Specialty Diagnoses / Procedures Referred By Contac t Referred To Contact Diagnoses Acquired deformity of right toe Shyam Cam, DPM [facility] [address] [place] [address] Referral ID Status Reason Start Date Expiration Date V isits Requested Visits Authorized [id number] Pending Review 06/19/2024 12/16/2024 1 1 Specialty Diagnoses / Procedures Referred By Contac t Referred To Contact Diagnoses Complex regional pain syndrome type II of right lower limb Chronic toe pain, right foot Class 3 severe obesity with serious comorbidity and body mass index (BMI) of 40.0 to 44.9 in adult, unspecified obesity type (HCC) Procedures PROVIDER ORDERED FOLLOW UP OFFICE/OUTPATIENT [facility] 60 MINUTES Chiqui Robles MD [address] [place] [address] Referral ID Status Reason Start Date Expiration Date Visits Requested Visits Authorized [id number] Authorized PCP Requested Referral 06/25/2024 04/24/2025 1 1 Specialty Diagnoses / Procedures Referred By Contac t Referred To Contact Infectious Diseases Diagnoses Dermatitis of lower extremity Procedures CONSULT TO INFECTIOUS DISEASES OFFICE/OUTPATIENT [facility] 60 MINUTES Herberth Araujo MD, PhD [address] [place] [address] Referral ID Status Reason Start Date Expiration Date Visits Requested Visits Authorized [id number] Authorized PCP Requested Referral 02/29/2024 02/28/2025 1 1 Specialty Diagnoses / Procedures Referred By Contac t Referred To Contact Podiatry Diagnoses Chronic toe pain, right foot Painful diabetic neuropathy (HCC) Procedures CONSULT TO PODIATRY OFFICE/OUTPATIENT [facility] 60 MINUTES Francoise Singletary MD [address] [place] [address] Referral ID Status Reason Start Date Expiration Date Visits Requested Visits Authorized [id number] Authorized PCP Requested Referral 02/05/2024 02/04/2025 1 1 Specialty Diagnoses / Procedures Referred By Contac t Referred To Contact Neurology Diagnoses Chronic toe pain, right foot Painful diabetic neuropathy (HCC) Procedures CONSULT TO NEUROLOGY OFFICE/OUTPATIENT [facility] 60 MINUTES Francoise Singletary MD [address] [place] [address] Referral ID Status Reason Start Date Expiration Date Visits Requested Visits Authorized [id number] Authorized PCP Requested Referral 02/05/2024 02/04/2025 1 1 Specialty Diagnoses / Procedures Referred By Contac t Referred To Contact [facility] Diagnoses Chronic toe pain, right foot Painful diabetic neuropathy (HCC) Procedures [facility]SULT TO [facility] ([facility]IN) OFFICE/OUTPATIENT NEW HIGH MDM 60 MINUTES Francoise Singletary MD [address] [place] [address] Referral ID Status Reason Start Date Expiration Date Visits Requested Visits Authorized [id number] Pending Review PCP Requested Referral 02/05/2024 02/04/2025 1 1 Additional Source Comments REASON FOR VISIT (unrecogniz ed section and content) Reason Comments Consult Rt foot Reason Comments Established Patient Medication Update Reason Comments Nurse Triage Call Reason Comments New Patient Specialty Diagnoses / Procedures Referred By Contac t Referred To Contact [facility] Diagnoses Complex regional pain syndrome type II of right lower limb Chronic toe pain, right foot Class 3 severe obesity with serious comorbidity and body mass index (BMI) of 40.0 to 44.9 in adult, unspecified obesity type (HCC) Procedures [facility]SULT TO [facility] ([facility]) OFFICE/OUTPATIENT NEW HIGH MDM 60 MINUTES Herberth Araujo MD, PhD [address] [place] [address] Referral ID Status Reason Start Date Expiration Date Visits Requested Visits Authorized [id number] Pending Review PCP Requested Referral 04/03/2024 04/03/2025 [...] 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 traumatic Arlen Sanchez, DO [address] [facility] [address] [place] [address] Phone: tel: fax: Khai Heard, DO [address] [facility] [place] [address] Phone: tel: fax: Referral ID Status Reason Start Date Expiration Date V isits Requested Visits Authorized [id number] Closed Consult and Treat 07/23/2024 01/19/2025 1 [...] (HCC) Procedures PROVIDER ORDERED FOLLOW UP OFFICE/OUTPATIENT [facility] 60 MINUTES Chiqui Robles MD [address] [place] [address] Referral ID Status Reason Start Date Expiration Date V isits Requested Visits Authorized [id number] Closed PCP Requested Referral 06/25/2024 04/24/2025 1 [...] DATE CREATED AUTHOR 02/20/2023 [facility] DATE CREATED AUTHOR AUTHOR'S ORGANIZ ATION 11/22/2023 [facility] DATE CREATED AUTHOR AUTHOR'S ORGANIZ ATION 03/09/2024 [facility] DATE CREATED AUTHOR AUTHOR'S ORGANIZ ATION 03/16/2024 [facility] DATE CREATED AUTHOR AUTHOR'S ORGANIZ ATION 07/19/2024 [facility] DATE CREATED AUTHOR AUTHOR'S ORGANIZ ATION 08/28/2024 [facility] DATE CREATED AUTHOR AUTHOR'S ORGANIZ ATION 09/12/2024 [facility] DATE CREATED AUTHOR AUTHOR'S ORGANIZ ATION 10/20/2024 [facility] DATE CREATED AUTHOR AUTHOR'S ORGANIZ ATION 10/22/2024 [facility] DATE CREATED AUTHOR AUTHOR'S ORGANIZ ATION 11/06/2024 [facility] DATE CREATED AUTHOR AUTHOR'S ORGANIZ ATION 12/05/2024 [facility] DATE CREATED AUTHOR AUTHOR'S ORGANIZ ATION 12/20/2024 [facility] DATE CREATED AUTHOR AUTHOR'S ORGANIZ ATION 12/27/2024 [facility] DATE CREATED AUTHOR AUTHOR'S ORGANIZ ATION 01/01/2025 [facility] DATE CREATED AUTHOR AUTHOR'S ORGANIZ ATION 01/03/2025 [facility] Care Teams (unrecognized sec tion [...] September 11, 2023 End: September 11, 2023 Stenotype Machine Operator Relationship Specialty Start Date End Date Miguelangel Mac MD [address] [place] [address] 1 [place] [address] Referring Pain Management 01/29/24 Stenotype Machine Operator Relationship Specialty Start Date End Date Miguelangel Mac MD [address] [place] [address], [place] [address] Referring Pain Management 01/29/24 Stenotype Machine Operator Relationship Specialty Start Date End Date Miguelangel Mac MD [address] [place] [address], [place] [address] Referring Pain Management 01/29/24 Stenotype Machine Operator Relationship Specialty Start Date End Date Miguelangel Mac MD [address] [place] [address], [place] [address] Referring Pain Management 01/29/24 Stenotype Machine Operator Relationship Specialty Start Date End Date Haider Hickman MD [address] [place] [address] PCP - General Family Medicine 03/26/24 Miguelangel Mac MD [address] [place] [address] 1 [place] [address] Referring Pain Management 01/29/24 Stenotype Machine Operator Relationship Specialty Start Date End Date Haider Hickman MD [address] [place] [address] [place] [address] PCP - General Family Medicine 03/26/24 Miguelangel Mac MD [address] [place] [address] 1 [place] [address] Referring Pain Management 01/29/24 Stenotype Machine Operator Relationship Specialty Start Date End Date Haider Hickman MD [address] [place] [address] PCP - General Family Medicine 03/26/24 Miguelangel Mac MD [address] [place] [address] Referring Pain Management 01/29/24 Stenotype Machine Operator Relationship Specialty Start Date End Date Haider Hickman MD [address] [place] [address] PCP - General Family Medicine 03/26/24 Miguelangel Mac MD [address] [place] [address] Referring Pain Management 01/29/24 Stenotype Machine Operator Relationship Specialty Start Date End Date Haider Hickman MD [address] [place] [address] PCP - General Family Medicine 03/26/24 Miguelangel Mac MD [address] [place] [address] 1 [place] [address] Referring Pain Management 01/29/24 Stenotype Machine Operator Relationship Specialty Start Date End Date Haider Hickman MD [address] [place] [address] PCP - General Family Medicine 03/26/24 Miguelangel Mac MD [address] [facility] [address] [place] [address] Referring Pain Management 01/29/24 Stenotype Machine Operator Relationship Specialty Start Date End Date Haider Hickman MD [address] [place] [facility] [address] PCP - General Family Medicine 05/09/24 Stenotype Machine Operator Relationship Specialty Start Date End Date Haider Hickman MD [address] [place] [facility] [place] [address] PCP - General Family Medicine 05/09/24 Stenotype Machine Operator Relationship Specialty Start Date End Date Haider Hickman MD [address] [place] [facility] [place] [address] PCP - General Family Medicine 05/09/24 Stenotype Machine Operator Relationship Specialty Start Date End Date Haider Hickman MD [address] [place] [facility] [place] [address] PCP - General Family Medicine 05/09/24 Stenotype Machine Operator Relationship Specialty Start Date End Date Haider Hickman MD [address] [place] [facility] [place] [address] PCP - General Family Medicine 05/09/24 Stenotype Machine Operator Relationship Specialty Start Date End Date Haider Hickman MD [address] [place] [facility] [place] [address] PCP - General Family Medicine 03/26/24 Miguelangel Mac MD [address] [facility] [address] [place] [address] Referring Pain Management 01/29/24 Stenotype Machine Operator Relationship Specialty Start Date End Date Haider Hickman MD [address] [place] [address] PCP - General Family Medicine 05/09/24 Stenotype Machine Operator Relationship Specialty Start Date End Date Haider Hickman MD [address] [place] [address] PCP - General Family Medicine 05/09/24 Stenotype Machine Operator Relationship Specialty Start Date End Date Haider Hickman MD [address] [place] [address] PCP - General Family Medicine 05/09/24 Stenotype Machine Operator Relationship Specialty Start Date End Date Haider Hickman MD [address] [place] [address] PCP - General Family Medicine 05/09/24 Stenotype Machine Operator Relationship Specialty Start Date End Date Haider Hickman MD [address] [place] [address] PCP - General Family Medicine 05/09/24 Stenotype Machine Operator Relationship Specialty Start Date End Date Haider Hickman MD [address] [place] [address] PCP - General Family Medicine 05/09/24 Stenotype Machine Operator Relationship Specialty Start Date End Date Haider Hickman MD [address] [place] [address] PCP - General Family Medicine 05/09/24 Stenotype Machine Operator Relationship Specialty Start Date End Date Haider Hickman MD [address] [place] [address] PCP - General Family Medicine 05/09/24 Stenotype Machine Operator Relationship Specialty Start Date End Date Haider Hickman MD [address] [place] [address] PCP - General [facility] Medicine 05/09/24 Stenotype Machine Operator Relationship Specialty Start Date End Date Haider Hickman MD [address] [facility], [place] [id number] PCP - [facility] Medicine 05/09/24 Stenotype Machine Operator Relationship Specialty Start Date End Date Haider Hickman MD [address] [facility], [facility] PCP - General Family Medicine 05/09/24 Goals [...] drug abuse patient.[facility] the event this information is protected by the Federal Confidentiality of Alcohol and Drug Abuse Patient Records regulations: The Federal rules restrict any use of the information to criminally investigate or prosecute any alcohol or drug abuse patient.[facility] the event this information is protected by the Federal Confidentiality of Alcohol and Drug Abuse Patient Records regulations: The Federal rules restrict any use of the information to criminally investigate or prosecute any alcohol or drug abuse patient.[facility] the event this information is protected by the Federal Confidentiality of Alcohol and Drug Abuse Patient Records regulations: The Federal rules restrict any use of the information to criminally investigate or prosecute any alcohol or drug abuse patient.[facility] the event this information is protected by the Federal Confidentiality of Alcohol and Drug Abuse Patient Records regulations: The Federal rules restrict any use of the information to criminally investigate or prosecute any alcohol or drug abuse patient.[facility] the event this information is protected by the Federal Confidentiality of Alcohol and Drug Abuse Patient Records regulations: The Federal rules restrict any use of the information to criminally investigate or prosecute any alcohol or drug abuse patient.[facility] the event this information is protected by the Federal Confidentiality of Alcohol and Drug Abuse Patient Records regulations: The Federal rules restrict any use of the information to criminally investigate or prosecute any alcohol or drug abuse patient.[facility] the event this information is protected by the Federal Confidentiality of Alcohol and Drug Abuse Patient Records regulations: The Federal rules restrict any use of the information to criminally investigate or prosecute any alcohol or drug abuse patient.[facility] the event this information is protected by the Federal Confidentiality of Alcohol and Drug Abuse Patient Records regulations: The Federal rules restrict any use of the information to criminally investigate or prosecute any alcohol or drug abuse patient.[facility] the event this information is protected by the Federal Confidentiality of Alcohol and Drug Abuse Patient Records regulations: The Federal rules restrict any use of the information to criminally investigate or prosecute any alcohol or drug abuse patient.[facility] the event this information is protected by the Federal Confidentiality of Alcohol and Drug Abuse Patient Records regulations: The Federal rules restrict any use of the information to criminally investigate or prosecute any alcohol or drug abuse patient.[facility] the event this information is protected by the Federal Confidentiality of Alcohol and Drug Abuse Patient Records regulations: The Federal rules restrict any use of the information to criminally investigate or prosecute any alcohol or drug abuse patient.[facility] FOR RECORDS PERTAINING TO PATIENTS WHO ARE [...] BE BASED ON THE PRIMARY CLINICAL RECORDS. [facility] [employer] provides no warranty or guarantee of the accuracy or completeness of information in this document.
--- NOTE | 2025-01-13 14:47 | PM.CN ---
Consult Note: HPI Data of Consult Patient: known to practice within the last 3 years Consult date: 01/13/25 Requesting Physician: Miguelangel Mac MD Primary Care Provider: HAIDER HICKMAN Consult Narrative Reason for consult: right foot pain Narrative: 74yom who presents for assessment. continues to have right foot pain. has tried various interventions, surgeries, medications, without significant benefit. denies adverse med side effects. has diabetes. cc:: CC: Miguelangel Mac MD Review of Systems ROS Status of ROS 10 or more systems reviewed and unremarkable except as noted in history and below [facility] Medical History H/O nephrolithotomy with removal of calculi ?Z98.890 - Other specified postprocedural states (ICD-10) ?Z87.442 - Personal history of urinary calculi (ICD-10) Osteoarthritis ?M19.90 - Unspecified osteoarthritis, unspecified site (ICD-10) Amputation of toe ?S98.139A - Complete traumatic amputation of one unspecified lesser toe, initial encounter (ICD-10) H/O renal calculi ?Z87.442 - Personal history of urinary calculi (ICD-10) Obstructive sleep apnea on CPAP ?G47.33 - Obstructive sleep apnea (adult) (pediatric) (ICD-10) Neck pain ?M54.2 - Cervicalgia (ICD-10) Low back pain ?M54.50 - Low back pain, unspecified (ICD-10) Obesity ?E66.9 - Obesity, unspecified (ICD-10) Diabetes ?E11.9 - Type 2 diabetes mellitus without complications (ICD-10) Enlarged prostate ?N40.0 - Benign prostatic hyperplasia without lower urinary tract symptoms (ICD-10) Hypertension ?I10 - Essential (primary) hypertension (ICD-10) Surgical History H/O heart artery stent ?Z95.5 - Presence of coronary angioplasty implant and graft (ICD-10) Social History Little interest or pleasure in doing things: not at all Feeling down, depressed, or hopeless: not at all Meds Home Medications and Allergies Home Medications ?Medication ?Instructions ?Recorded ?Confirmed ?Type acarbose 50 mg tablet 50 mg PO TID 05/24/23 09/09/24 History aspirin 81 mg tablet,delayed 81 mg PO DAILY 05/24/23 09/09/24 History release (Adult Aspirin Regimen) bupropion HCl 150 mg tablet,12 hr 150 mg PO DAILY 05/24/23 09/09/24 History sustained-release losartan 50 mg tablet 75 mg PO DAILY 05/24/23 09/09/24 History metoprolol tartrate 50 mg tablet 50 mg PO BID 05/24/23 09/09/24 History (Lopressor) nitroglycerin 0.4 mg sublingual 0.4 mg sublingual Q5M 05/24/23 09/09/24 History tablet pioglitazone 30 mg tablet 60 mg PO DAILY 05/24/23 09/09/24 History simvastatin 40 mg tablet 40 mg PO DAILY 05/24/23 09/09/24 History sitagliptin phosphate 50 mg tablet 50 mg PO DAILY 05/24/23 09/09/24 History (Januvia) sodium bicarbonate 650 mg tablet 650 mg PO TID PRN stomach upset 05/24/23 09/09/24 History tizanidine 4 mg tablet 4 mg PO DAILY PRN muscle spasticity 05/24/23 09/09/24 History venlafaxine 37.5 mg 37.5 mg PO BID 05/24/23 09/09/24 History capsule,extended release 24 hr acetaminophen 300 mg-codeine 30 mg 1 tab PO Q6H PRN pain 5 days #20 05/25/24 09/09/24 Rx tablet tabs pregabalin 75 mg capsule mg QID 09/03/24 History pregabalin 100 mg capsule (Lyrica) 100 mg PO QID #120 caps 09/19/24 Rx tizanidine 4 mg capsule See Rx Instructions .Route 09/19/24 Rx .COMPLEX PRN muscle spasticity #180 caps pregabalin 100 mg capsule (Lyrica) See Rx Instructions .Route 10/24/24 Rx .COMPLEX #35 caps tizanidine 4 mg tablet 4 mg PO QID PRN muscle spasticity 10/24/24 Rx #120 tabs cephalexin 500 mg capsule 500 mg PO BID 7 days #14 caps 11/09/24 Rx buprenorphine 5 mcg/hour weekly 1 patch transdermal Q7D #4 ea 12/02/24 Rx transdermal patch (Butrans) hydrocodone 5 mg-acetaminophen 325 1 tab PO Q8H PRN pain 3 days #8 12/05/24 Rx mg tablet tabs tizanidine 4 mg capsule 4 mg PO QID PRN muscle spasticity 12/18/24 Rx #120 caps Allergies Allergy/AdvReac Type Severity Reaction Status Date / Time cefuroxime Allergy Unknown Unknown Verified 12/05/24 14:07 diflunisal (From Dolobid) Allergy Unknown Unknown Verified 12/05/24 14:07 dulaglutide (From Trulicity) Allergy Unknown Unknown Verified 12/05/24 14:07 liraglutide (From Victoza) Allergy Unknown Unknown Verified 12/05/24 14:07 rofecoxib (From Vioxx) Allergy Unknown Unknown Verified 12/05/24 14:07 celecoxib (From Celebrex) Allergy Unknown Verified 12/05/24 14:07 metformin Allergy Unknown Verified 12/05/24 14:07 naproxen (From Naprosyn) Allergy Unknown Verified 12/05/24 14:07 NSAIDS (Non-Steroidal Allergy Unknown Verified 12/05/24 14:07 Anti-Inflamma sulindac (From Clinoril) Allergy Unknown Verified 12/05/24 14:07 axetil Allergy Unknown Unknown Uncoded 12/05/24 14:07 Exam Narrative Exam Narrative: Psych-alert and oriented x 3.? Attentive and appropriate, constitutionally normal, displays normal mood and affect per situation.? There are no obvious deficits in memory, reasoning, or intellect. Examination of the right lower extremity reveals notable hyperpathia and allodynia.? Notable atrophy and diffuse weakness present in the extremity.? There is notable shiny skin with hair loss and abnormal hair growth denoting trophic changes presently.? Asymmetric color and temperature changes are present which denotes sudomotor changes.? Decreased range of motion and strength is noted in the extremity.? Coordination remains intact.? Gait remains non-antalgic. Assessment and Plan Assessment and Plan (1) Painful diabetic neuropathy: (2) Chronic painful diabetic neuropathy: Plan 74yom who presents for assessment. failed conservative measures, as noted. given persistence of pain in right foot, will have him try a Qutenza patch. he would like to move forward with this. prescribed EMLA cream that he may apply prior to patch. he is in agreement. meds reviewed, will continue tizanidine. follow up for patch application.
== END 2025-01-13 13:23 | disposition home or self-care (01) ==
LOC: PM 13:26
PROVIDERS: PCP Family Medicine; Visit Provider Anesthesiology
DX: E11.40 Type 2 diabetes mellitus with diabetic neuropathy, unspecified (principal)
CPT/HCPCS: G0463

== ENCOUNTER 2025-01-20 12:36 | Outpatient (OUT) | payer MEDICARE, OTHER, SELFPAY ==
--- NOTE | 2025-01-20 13:17 | PM.CN ---
Consult Note: HPI Data of Consult Patient: known to practice within the last 3 years Consult date: 01/20/25 Requesting Physician: Miguelangel Mac MD Primary Care Provider: HAIDER HICKMAN Consult Narrative Reason for consult: right foot pain Narrative: 74yom who presents for assessment. continues to have debilitating right toe pain. had previously discussed qutenza patch, and he is interested. has tried a myriad of other measures, from topicals to therapy to injections to spinal cord stim. uses muscle relaxant. cc:: CC: Miguelangel Mac MD Review of Systems ROS Status of ROS 10 or more systems reviewed and unremarkable except as noted in history and below [facility] Medical History H/O nephrolithotomy with removal of calculi ?Z98.890 - Other specified postprocedural states (ICD-10) ?Z87.442 - Personal history of urinary calculi (ICD-10) Osteoarthritis ?M19.90 - Unspecified osteoarthritis, unspecified site (ICD-10) Amputation of toe ?S98.139A - Complete traumatic amputation of one unspecified lesser toe, initial encounter (ICD-10) H/O renal calculi ?Z87.442 - Personal history of urinary calculi (ICD-10) Obstructive sleep apnea on CPAP ?G47.33 - Obstructive sleep apnea (adult) (pediatric) (ICD-10) Neck pain ?M54.2 - Cervicalgia (ICD-10) Low back pain ?M54.50 - Low back pain, unspecified (ICD-10) Obesity ?E66.9 - Obesity, unspecified (ICD-10) Diabetes ?E11.9 - Type 2 diabetes mellitus without complications (ICD-10) Enlarged prostate ?N40.0 - Benign prostatic hyperplasia without lower urinary tract symptoms (ICD-10) Hypertension ?I10 - Essential (primary) hypertension (ICD-10) Surgical History H/O heart artery stent ?Z95.5 - Presence of coronary angioplasty implant and graft (ICD-10) Social History Little interest or pleasure in doing things: not at all Feeling down, depressed, or hopeless: not at all Meds Home Medications and Allergies Home Medications ?Medication ?Instructions ?Recorded ?Confirmed ?Type acarbose 50 mg tablet 50 mg PO TID 05/24/23 09/09/24 History aspirin 81 mg tablet,delayed 81 mg PO DAILY 05/24/23 09/09/24 History release (Adult Aspirin Regimen) bupropion HCl 150 mg tablet,12 hr 150 mg PO DAILY 05/24/23 09/09/24 History sustained-release losartan 50 mg tablet 75 mg PO DAILY 05/24/23 09/09/24 History metoprolol tartrate 50 mg tablet 50 mg PO BID 05/24/23 09/09/24 History (Lopressor) nitroglycerin 0.4 mg sublingual 0.4 mg sublingual Q5M 05/24/23 09/09/24 History tablet pioglitazone 30 mg tablet 60 mg PO DAILY 05/24/23 09/09/24 History simvastatin 40 mg tablet 40 mg PO DAILY 05/24/23 09/09/24 History sitagliptin phosphate 50 mg tablet 50 mg PO DAILY 05/24/23 09/09/24 History (Januvia) sodium bicarbonate 650 mg tablet 650 mg PO TID PRN stomach upset 05/24/23 09/09/24 History venlafaxine 37.5 mg 37.5 mg PO BID 05/24/23 09/09/24 History capsule,extended release 24 hr buprenorphine 5 mcg/hour weekly 1 patch transdermal Q7D #4 ea 12/02/24 Rx transdermal patch (Butrans) tizanidine 4 mg capsule 4 mg PO QID PRN muscle spasticity 12/18/24 Rx #120 caps Allergies Allergy/AdvReac Type Severity Reaction Status Date / Time cefuroxime Allergy Unknown Unknown Verified 12/05/24 14:07 diflunisal (From Dolobid) Allergy Unknown Unknown Verified 12/05/24 14:07 dulaglutide (From Trulicity) Allergy Unknown Unknown Verified 12/05/24 14:07 liraglutide (From Victoza) Allergy Unknown Unknown Verified 12/05/24 14:07 rofecoxib (From Vioxx) Allergy Unknown Unknown Verified 12/05/24 14:07 celecoxib (From Celebrex) Allergy Unknown Verified 12/05/24 14:07 metformin Allergy Unknown Verified 12/05/24 14:07 naproxen (From Naprosyn) Allergy Unknown Verified 12/05/24 14:07 NSAIDS (Non-Steroidal Allergy Unknown Verified 12/05/24 14:07 Anti-Inflamma sulindac (From Clinoril) Allergy Unknown Verified 12/05/24 14:07 axetil Allergy Unknown Unknown Uncoded 12/05/24 14:07 Exam Narrative Exam Narrative: Psych-alert and oriented x 3.? Attentive and appropriate, constitutionally normal, displays normal mood and affect per situation.? There are no obvious deficits in memory, reasoning, or intellect. Examination of the right extremity reveals notable hyperpathia and allodynia.? Notable atrophy and diffuse weakness present in the extremity.? There is notable shiny skin with hair loss and abnormal hair growth denoting trophic changes presently.? Asymmetric color and temperature changes are present which denotes sudomotor changes.? Decreased range of motion and strength is noted in the extremity.? Coordination remains intact.? Gait remains non-antalgic. Assessment and Plan Assessment and Plan (1) Painful diabetic neuropathy: (2) Pain, foot, right, chronic: Plan 74yom who presents for assessment. failed conservative measures, as noted. given symptoms and failure to respond to other measures, prudent to attempt qutenza patch for right foot. he is in agreement. meds reviewed, no changes. follow up for procedure.
== END 2025-01-20 12:37 | disposition home or self-care (01) ==
LOC: PM 12:36
PROVIDERS: PCP Family Medicine; Visit Provider Anesthesiology
DX: E11.40 Type 2 diabetes mellitus with diabetic neuropathy, unspecified (principal); M79.671 Pain in right foot
CPT/HCPCS: G0463

== ENCOUNTER 2025-01-27 09:53 | Outpatient (RCR) | payer MEDICARE, OTHER, SELFPAY | END 2025-03-28 07:06 | disposition home or self-care (01) | LOC: PT 09:53 | PROVIDERS: PCP Family Medicine; Visit Provider Family Medicine | DX: R26.89 Other abnormalities of gait and mobility (principal) | CPT/HCPCS: 97110; 97112; 97161 ==

== ENCOUNTER 2025-02-10 12:33 | Outpatient (OUT) | payer MEDICARE, OTHER, SELFPAY ==
--- NOTE | 2025-02-10 14:34 | PM.CN ---
Consult Note: HPI Data of Consult Patient: known to practice within the last 3 years Consult date: 02/10/25 Requesting Physician: Anastasia Donato NP Primary Care Provider: HAIDER HICKMAN Consult Narrative Reason for consult: right foot pain Narrative: 74yom who presents for assessment. continues to have significant right foot pain. would like to proceed with qutenza patch application. cc:: CC: Anastasia Donato NP Review of Systems ROS Status of ROS 10 or more systems reviewed and unremarkable except as noted in history and below PFSH PFS Medical History H/O nephrolithotomy with removal of calculi ?Z98.890 - Other specified postprocedural states (ICD-10) ?Z87.442 - Personal history of urinary calculi (ICD-10) Osteoarthritis ?M19.90 - Unspecified osteoarthritis, unspecified site (ICD-10) Amputation of toe ?S98.139A - Complete traumatic amputation of one unspecified lesser toe, initial encounter (ICD-10) H/O renal calculi ?Z87.442 - Personal history of urinary calculi (ICD-10) Obstructive sleep apnea on CPAP ?G47.33 - Obstructive sleep apnea (adult) (pediatric) (ICD-10) Neck pain ?M54.2 - Cervicalgia (ICD-10) Low back pain ?M54.50 - Low back pain, unspecified (ICD-10) Obesity ?E66.9 - Obesity, unspecified (ICD-10) Diabetes ?E11.9 - Type 2 diabetes mellitus without complications (ICD-10) Enlarged prostate ?N40.0 - Benign prostatic hyperplasia without lower urinary tract symptoms (ICD-10) Hypertension ?I10 - Essential (primary) hypertension (ICD-10) Surgical History H/O heart artery stent ?Z95.5 - Presence of coronary angioplasty implant and graft (ICD-10) Social History Little interest or pleasure in doing things: not at all Feeling down, depressed, or hopeless: not at all Meds Home Medications and Allergies Home Medications ?Medication ?Instructions ?Recorded ?Confirmed ?Type acarbose 50 mg tablet 50 mg PO TID 05/24/23 09/09/24 History aspirin 81 mg tablet,delayed 81 mg PO DAILY 05/24/23 09/09/24 History release (Adult Aspirin Regimen) bupropion HCl 150 mg tablet,12 hr 150 mg PO DAILY 05/24/23 09/09/24 History sustained-release losartan 50 mg tablet 75 mg PO DAILY 05/24/23 09/09/24 History metoprolol tartrate 50 mg tablet 50 mg PO BID 05/24/23 09/09/24 History (Lopressor) nitroglycerin 0.4 mg sublingual 0.4 mg sublingual Q5M 05/24/23 09/09/24 History tablet pioglitazone 30 mg tablet 60 mg PO DAILY 05/24/23 09/09/24 History simvastatin 40 mg tablet 40 mg PO DAILY 05/24/23 09/09/24 History sitagliptin phosphate 50 mg tablet 50 mg PO DAILY 05/24/23 09/09/24 History (Januvia) sodium bicarbonate 650 mg tablet 650 mg PO TID PRN stomach upset 05/24/23 09/09/24 History venlafaxine 37.5 mg 37.5 mg PO BID 05/24/23 09/09/24 History capsule,extended release 24 hr buprenorphine 5 mcg/hour weekly 1 patch transdermal Q7D #4 ea 12/02/24 Rx transdermal patch (Butrans) tizanidine 4 mg capsule 4 mg PO QID PRN muscle spasticity 12/18/24 Rx #120 caps lidocaine-prilocaine 2.5 %-2.5 % 1 applic topical ONCE #30 grams 01/30/25 Rx topical cream Allergies Allergy/AdvReac Type Severity Reaction Status Date / Time cefuroxime Allergy Unknown Unknown Verified 12/05/24 14:07 diflunisal (From Dolobid) Allergy Unknown Unknown Verified 12/05/24 14:07 dulaglutide (From Trulicity) Allergy Unknown Unknown Verified 12/05/24 14:07 liraglutide (From Victoza) Allergy Unknown Unknown Verified 12/05/24 14:07 rofecoxib (From Vioxx) Allergy Unknown Unknown Verified 12/05/24 14:07 celecoxib (From Celebrex) Allergy Unknown Verified 12/05/24 14:07 metformin Allergy Unknown Verified 12/05/24 14:07 naproxen (From Naprosyn) Allergy Unknown Verified 12/05/24 14:07 NSAIDS (Non-Steroidal Allergy Unknown Verified 12/05/24 14:07 Anti-Inflamma sulindac (From Clinoril) Allergy Unknown Verified 12/05/24 14:07 axetil Allergy Unknown Unknown Uncoded 12/05/24 14:07 Exam Narrative Exam Narrative: Psych-alert and oriented x 3.? Attentive and appropriate, constitutionally normal, displays normal mood and affect per situation.? There are no obvious deficits in memory, reasoning, or intellect. Examination of the right extremity reveals notable hyperpathia and allodynia.? Notable atrophy and diffuse weakness present in the extremity.? There is notable shiny skin with hair loss and abnormal hair growth denoting trophic changes presently.? Asymmetric color and temperature changes are present which denotes sudomotor changes.? Decreased range of motion and strength is noted in the extremity.? Coordination remains intact.? Gait remains non-antalgic. Assessment and Plan Assessment and Plan (1) Painful diabetic neuropathy: (2) Pain, foot, right, chronic: Plan 74yom who presents for assessment. continues to have significant right foot pain, would like to proceed with qutenza patch application. meds reviewed, no changes. follow up in 4-6 weeks. Application of Qutenza: Date/time: 02/10/2025, 13:00 Skin pretreated with (if applicable): EMLA cream Capsaicin 8% topical system applied per order: Area of body applied to: right foot Time applied: 45 minutes Coban/gauze wrapped to secure patch Area cleansed with Cleansing Gel and wiped with soap and water. Patient tolerated treatment well without significant issues. Instructed patient to remove shoes/socks and wash area again once home. Return to office in 4 weeks to assess treatment. Next treatment in 3 months.
== END 2025-02-10 12:34 | disposition home or self-care (01) ==
LOC: PM 12:34
PROVIDERS: PCP Family Medicine; Visit Provider Nurse Practitioner
DX: M79.671 Pain in right foot (principal); E11.40 Type 2 diabetes mellitus with diabetic neuropathy, unspecified
CPT/HCPCS: 64999

== ENCOUNTER 2025-03-25 08:43 | Outpatient (OUT) | payer MEDICARE, OTHER, SELFPAY ==
--- NOTE | 2025-03-25 08:45 | MR_ITS ---
The [address] [address] Patient Name: LUISITO WHITMORE MRN: [facility]:[id number] date: 1950 Sex: M Assigned Patient Location: MRI Current Patient Location: MRI Accession/Order Number: [id number] Exam Date: 03/25/2025 10:01 Report Date: 03/25/2025 10:26 At the request of: HALI ALEGRIA APRN Procedure: MR lumbar spine wo con MRI LUMBAR SPINE WITHOUT CONTRAST COMPARISON: 10/27/2023 CLINICAL DATA: Right-sided back pain and lower extremity radiculopathy. No reported injury. Multiecho, multiplanar imaging of the lower spine was performed without contrast. There is dextroscoliotic curvature. There is stable alignment on the sagittal sequences. There are no acute compression fractures or marrow edema. There are multilevel degenerative endplate signal changes and spurring. A hemangioma is also seen at L3 toward the left. The conus medullaris is within normal limits for caliber, position and signal intensity. No paraspinal soft tissue attenuation noted. At T12-L1, there is minor annular disc bulging as well as endplate spurring is asymmetric laterally on the right. No significant thecal sac effacement or foraminal impingement. At L1-2, there is minor disco-osteophytic bulging, greater toward the neural foramen and extending laterally. There is minor thecal sac effacement and inferior foraminal encroachment. At L2-3, there is narrowing of the disc space. There is disco-osteophytic bulging greater toward the neural foramen and extending laterally. There is also mild facet and ligamentous hypertrophy. Mild thecal sac effacement is present. There is moderate narrowing of the neural foramen bilaterally, left slightly worse than right. At L3-4, is loss of disc height. There is moderate disco-osteophytic bulging as well as prominent facet and ligamentous hypertrophy. There is moderate to severe narrowing of the central canal. There is also moderate left and moderate to severe right foraminal impingement. At L4-5, there is severe narrowing of the disc space. There is disco-osteophytic bulging, asymmetric in the right parasagittal region. There is facet and ligamentous hypertrophy, right side greater than left. There is only slight thecal sac effacement. There is moderate bilateral foraminal impingement. At the lumbosacral junction, there is narrowing of the disc space. Similar disco-osteophytic bulging is present. There is bilateral facet hypertrophy. There is no thecal sac effacement. There is at least moderate narrowing of the neural foramen bilaterally, slightly greater than left. MR/MR lumbar spine wo con IMPRESSION: SCOLIOSIS WITH MULTILEVEL DISCOVERTEBRAL DEGENERATIVE CHANGES, GREATEST AT L3-4 OUTLINED ABOVE. SIMILAR FINDINGS WERE PRESENT ON THE PRIOR, WITH MINIMAL PROGRESSION. Impression dictated by: Preeti Oliva M.D. 03/25/2025 10:26 AM Dictation Location: [place] [address] Electronically authenticated by: [id number] Y Date: 03/25/2025 10:26
== END 2025-03-25 08:44 | disposition home or self-care (01) ==
LOC: MRI 08:43
PROVIDERS: PCP Family Medicine; Visit Provider Nurse Practitioner Family
DX: M54.16 Radiculopathy, lumbar region (principal); M79.604 Pain in right leg; M51.369 Other intervertebral disc degeneration, lumbar region without mention of lumbar back pain or lower extremity pain
CPT/HCPCS: 72148

== ENCOUNTER 2025-04-08 11:25 | Outpatient (OUT) | payer MEDICARE, OTHER, SELFPAY ==
--- NOTE | 2025-04-08 11:32 | MR_ITS ---
The [address] [address] Patient Name: LUISITO WHITMORE MRN: [id number] date: 1950 Sex: M Assigned Patient Location: MRI Current Patient Location: MRI Accession/Order Number: [id number] Exam Date: 04/08/2025 13:09 Report Date: 04/08/2025 13:17 At the request of: DAVID WONG MD Procedure: MR head/brain wo con EXAMINATION: MRI OF THE BRAIN WITHOUT CONTRAST CLINICAL HISTORY: Asymmetric Sensorineural Hearing Loss COMPARISON: None FINDINGS: No restricted diffusion. Mild generalized involutional changes of brain parenchyma identified with prominence of the ventricles and sulci. Mild periventricular and subcortical T2 prolongation identified suggest of chronic small vessel ischemic disease. There is subtle loss of the normal intrinsic T2 signal within the right cochlea and semicircular canals. Normal intrinsic T2 signal identified left cochlea and semicircular canals identified. CSF signal within the right IAC appears unremarkable. Left IAC CSF appears slightly intermediate possible this unclear if this is due to volume averaging as no volumetric imaging was performed. Mild predominantly right-sided paranasal sinus disease. Mastoids are clear. MR/MR head/brain wo con IMPRESSION: Examination degraded due to artifacts and lack of volumetric imaging. Questionable loss of the normal intrinsic T2 signal within the right cochlear and semicircular canal may raise possibility of chronic labyrinthitis. Intermediate signal left IAC noted could be related to volume artifact, if there is clinical concern for possible left-sided schwannoma consider postcontrast imaging. Otherwise mild chronic small vessel changes and central involutional changes. Negative acute intracranial process by MRI. Impression dictated by: Anup Kunz M.D. 04/08/2025 1:17 PM Dictation Location: [place] [address] Electronically authenticated by: [id number] Y Date: 04/08/2025 13:17
== END 2025-04-08 11:26 | disposition home or self-care (01) ==
LOC: MRI 11:25
PROVIDERS: PCP Family Medicine; Visit Provider Otolaryngology
DX: H90.3 Sensorineural hearing loss, bilateral (principal)
CPT/HCPCS: 70551

== ENCOUNTER 2025-06-27 10:49 | Inpatient (IN) | payer MEDICARE, OTHER, SELFPAY ==
--- OUTSIDE RECORDS SUMMARY | 2025-06-27 11:00 | XMS_ITS | CCD ---
Author Organization [facility] ion [facility] Care Team Providers Care Material Requirements Planning Manager Name Role Phone ClaudioamintaMorgan Unavailable Aldo Middleton Unavailable Carito West Unavailable [...] Care Provider MD Daniel Everett Attending Provider Bubba SCHUSTER, Andrius Unavailable Haider Hickman Attending Unavailable Haider Hickman Admitting Unavailable Haider Hickman MD Primary Care Provider Haider Hickman MD Primary Care Provider MORGAN TRINIDAD Attending Unavailable HAIDER HICKMAN Primary Care Unavailable MIJATOPHILIPP, DESIMIR Referring Unavailable HAIDER HICKMAN Primary Care Unavailable MEKHAIL, HERBERTH A Referring Unavailable MIJATOVIC, DESIMIR Attending Unavailable MEKMARYSE, HERBERTH A Attending Unavailable FRANCOISE SINGLETARY Attending Unavailable HAIDER HICKMAN Primary Care Unavailable MIJATOVIC, DESIMIR Referring Unavailable MIJATOVIC, DESIMIR Attending Unavailable MEKHAIL, HERBERTH A Attending Unavailable ALEXIAHAIMary, HERBERTH A Admitting Unavailable MORGAN TRINIDAD Referring Unavailable HAIDER HICKMAN Primary Care Unavailable BRITNEY HYDE Attending Unavailable Haider Hickman Attending Unavailable Haider Hickman Admitting Unavailable Haider Hickman Attending Unavailable Ross, Haider E. Attending Unavailable HAIDER HICKMAN Primary Care Unavailable BRITTNY JASMINE Referring Unava ilable BRITTNY JASMINE Attending Unava ilable Sarmini, Krishna Talal Admitting Unavaila ble Sarmini, Krishna Talal Attending Unavaila ble Haider Hickman Admitting Unavailable Haider Hickman Attending Unavailable Sarmini, Krishna Talal Attending Unavaila ble Sarmini, Krishna Talal Attending Unavaila ble Haider Hickman Attending Unavailable Haider Hickman Attending Unavailable Haider Hickman Attending Unavailable Nanette Barajas Attending Unavailable Sarmini, Krishna Talal Admitting Unavaila ble Sarmini, Krishna Talal Attending Unavaila ble Sarmini, Krishna Talal Referring Unavaila ble Bubba SCHUSTER, Andrius Missy Attending Unavailable Giedraitis , Andrius Vytautmariann Attending Unavailable Giedraitis , Andrius Vytautmariann Attending Unavailable Giedraitis , Andrius Vytautmariann Attending Unavailable Giedraitis , Andrius Vytautmariann Attending Unavailable Giedraaron SCHUSTER, Andrius Vytautmariann Attending Unavailable Haider Hickman Referring Unavailable Haider Hickman Admitting Unavailable Haider Hickman Attending Unavailable Haider Hickman Attending Unavailable Haider Hickman Attending Unavailable Haider Hickman Attending Unavailable Deo Hickman Primary Care Provider [phone] Marce Bowen APRN Attending Provider Eligio Soni MD Attending Provider Deo Hickman Primary Care Provider [phone] Marce Bowen APRN Attending Provider Eligio Soni MD Attending Provider [phone] Aldo Middleton APRN Attending Provider Marce Bowen Admitting Unavailable Marce Bowen Attending Unavailable Deo Hickman Primary Care Unavailable Deo Hickman Primary Care Unavailable Eligio Soni Admitting Unavailabl Eligio Benavides Attending Unavailabl e Dolestefani, Kajal R Attending Unavailable Araceli BERMUDEZ Attending Unavailable Haider Hickman Attending Unavailable Haider Hicmkan Attending Unavailable Haider Hickman Attending Unavailable Haider Hickman Attending Unavailable Haider Hickman Attending Unavailable DAVEDAVID RAMOS Attending Unavailable Haider Hickman Admitting Unavailable Haider Hickman Attending Unavailable Dolce, Kajal R Attending Unavailable REFERRAL, SELF Referring Unavailable Dolce, Kajal R Attending Unavailable Araceli BERMUDEZ Attending Unavailable Araceli BERMUDEZ Attending Unavailable Kennebeck PhD, Kaia Unavailable Unavailab adin Torres PhD, Kaia Unavailable Unavailab BASSAM Desai Attending Unavailable MARIA DEL ROSARIO, CARA Nur Attending Unavailable TIMMIS, DAVID H Attending Unavailable LUIS, MORGAN Blank Attending Unavailable TIMMIS, DAVID H Referring Unavailable LUIS, MORGAN Blank Attending Unavailable TIMMIS DAVID H Referring Unavailable LUIS, MORGAN Blakn Attending Unavailable TIMMIS, DAVID H Referring Unavailable DOLCE, KAJAL R Attending Unavailable TIMMIS, DAVID H Attending Unavailable GABRIELA H Attending Unavailable LUIS, MORGAN Blank Attending Unavailable TIMMIS, DAVID H Referring Unavailable LUIS, MORGAN Blank Attending Unavailable TIMMIS, DAVID H Referring Unavailable GABRIELA H Attending Unavailable BASSAM AGUILAR Attending Unavailable MARIA DEL ROSARIOCARA Attending Unavailable APLING, CHELLE Balnk Attending Unavailable DOLCE, SHYAM Stoner Attending Unavailable MARIA G, ARLEN Nur Attending Unavailable DOLCE, SHYAM Stoner Attending Unavailable DOLCE, SHYAM Stoner Attending Unavailable KHAI HEARD Attending Unavailable MARIA G, ARLEN Nur Referring Unavailable BASSAM AGUILAR Attending Unavailable MATTHEW MAY Attending Unavailable HAIDER HICKMAN Referring Unavailable BASSAM AGUILAR Attending Unavailable Karl, SUPERVISOR [employer] Nanette L Admitting Unavailable Karl, SUPERVISOR [employer] Nanette L Attending Unavailable Karl, SUPERVISOR [employer] Nanette L Attending Unavailable Karl, SUPERVISOR [employer] Nanette L Attending Unavailable Karl, SUPERVISOR [employer] Nanette L Attending Unavailable Karl, SUPERVISOR [employer] Nanette L Attending Unavailable Karl, SUPERVISOR [employer] Nanette L Attending Unavailable Akrl, SUPER[employer] Nanette L Attending Unavailable Karl, SUPER[employer] Nanette L Attending Unavailable Karl, SUPER[employer] Nanette L Attending Unavailable Karl, SUPER[employer] Nanette L Attending Unavailable Haider Hickman Admitting Unavailable Ross, Haider E. Attending Unavailable Nanette Barajas Attending Unavailable Nanette Barajas Admitting Unavailable Brian Srinivasan, Kaia Unavailable UnavailMARY Colindres Attending Unavailable MARY APARICIO Attending Unavailable MARY APARICIO Attending Unavailable ESSENCE LAM Attending Unavailable ESSENCE LAM Attending Unavailable ELAINE FISHER Attending Unavailable Brian Srinivasan, Kaia Attending Unavailab Hadier Alvarez Admitting Unavailable Haider Hickman Attending Unavailable KarlNanette veloz Admitting Unavailable Tomi Maria Attending Unavaila ble Nanette Barajas Attending Unavailable Haider Hickman Admitting Unavailable Haider Hickman Attending Unavailable Haider Hickman Referring Unavailable Allergies Allergy Classification Reported Allergen(s) Allergy Type Date of Onset Reaction(s) Facility (20 sources) Cefuroxime; Translations: [cefuroxime] Drug Allergy 06-09-20 Unknown [facility] (20 sources) celecoxib; Translations: [CELECOXIB] Drug Allergy 06-09-20 21 Unknown, Unknown Reaction [facility] (20 sources) Diflunisal; Translations: [DIFLUNISAL] Drug Allergy 06-09-20 Unknown, Unknown Reaction [facility] (20 sources) dulaglutide; Translations: [DULAGLUTIDE] Drug Allergy 05-18-20 23 Unknown, g/i [facility] (20 sources) Ibuprofen Drug Allergy Unknown [facility] (20 sources) liraglutide; Translations: [LIRAGLUTIDE] Drug Allergy 11-25-19 23 stomach upset [facility] (20 sources) metFORMIN; Translations: [metFORMIN] Drug Allergy 06-09-20 stomach upset [facility] (20 sources) Naproxen; Translations: [NAPROXEN] Drug Allergy 06-09-20 Unknown [facility] (20 sources) Sulindac; Translations: [Clinoril] Drug Allergy 07-10-20 15 Unknown [facility] (1 source) Cefuroxime Drug Allergy 07-13-20 16 [facility] (9 sources) celecoxib; Translations: [CeleBREX] Drug Allergy 07-10-20 15 [facility] (9 sources) liraglutide; Translations: [Victoza] Drug Allergy [facility] (1 source) metFORMIN Drug Allergy 06-15-20 17 [facility] (9 sources) Naproxen; Translations: [Naprosyn] Drug Allergy 07-10-20 15 [facility] (3 sources) NSAIDs; Translations: [NSAIDS (NON-STEROIDAL ANTI-INFLAMMATORY DRUG)] Drug allergy (disorder) 07-10-20 15 [facility] (9 sources) Povidone-Iodine; Translations: [Dolobid] Drug Allergy 07-10-20 15 [facility] (20 sources) Cephalosporins (Antibiotic); Translations: [cephalosporins] Propensity to adverse reactions 05-29-20 18 Unknown Reaction [facility] (20 sources) Ibuprofen; Translations: [ibuprofen] Drug Allergy 09-11-20 23 Unknown [facility] (20 sources) Sulindac; Translations: [sulindac] Drug Allergy 06-09-20 21 Unknown [facility] (12 sources) Non-steroidal anti-inflammatory agent Drug Intolerance 02-05-20 24 GI Upset [facility] (20 sources) celecoxib Drug Allergy 05-18-20 23 Unknown [facility] (20 sources) Diflunisal Drug Allergy 06-09-20 Unknown [facility] (20 sources) dulaglutide Drug Allergy 05-18-20 23 Unknown [facility] (20 sources) liraglutide Drug Allergy 05-18-20 23 Unknown [facility] (20 sources) metFORMIN Drug Allergy 05-18-20 23 Unknown [facility] (20 sources) rofecoxib; Translations: [ROFECOXIB] Drug Allergy 06-09-20 Unknown [facility] (20 sources) Non-steroidal anti-inflammatory agent; Translations: [NSAIDs] Drug Allergy 07-23-20 Other [facility] (8 sources) Cefuroxime; Translations: [Cefuroxime Axetil] Drug Allergy [facility] Repository (8 sources) dulaglutide; Translations: [Trulicity] Drug Allergy [facility] (8 sources) Niacin; Translations: [niacin] Drug Allergy [facility] (8 sources) rofecoxib; Translations: [Vioxx] Drug Allergy [facility] (1 source) Cefuroxime Drug Allergy 03-26-20 [facility] Rep[facility] (1 source) celecoxib Drug Allergy 03-26-20 [facility] (1 source) Diflunisal Drug Allergy 03-26-20 [facility] (1 source) dulaglutide Drug Allergy 03-26-20 [facility] (1 source) liraglutide Drug Allergy 03-26-20 [facility] (1 source) metFORMIN Drug Allergy 03-26-20 [facility] (1 source) Naproxen Drug Allergy 03-26-20 [facility] Repository Medications Current Medications Medication Drug Class(es) Dates Sig (Normalized) Sig (Original) acarbose 50 mg oral tablet (20 sources) alpha-Glucosidase Inhibitor Start: 11-07-2022 acarbose (Precose) 50 MG tablet Take 50 mg by mouth in the morning and 50 mg at noon and 50 mg in the evening. Take with meals. 05/07/2023 Active Start: 05-29-2018 End: 12-11-2023 Acarbose 25 mg tablet Discon tinued May 29, 2018 12:00am December 11, 2023 12:22pm Start: 05-29-2018 Acarbose Activ e TABLET May 28, 2018 11:00pm take 1 tablet by jatin th three times daily Acarbose 25 mg 1 Tablet Oral tid Active acetaminophen 300 mg / codeine phosphate 30 mg oral tablet (20 sources) Opioid Agonist Start: 05-25-2024 End: 03-31-2025 acetaminophen-codeine (Tylenol w/ Codeine #3) 300-30 MG tablet 05/25/2024 03/31/2025 Discontinued (Therapy completed) aspirin 81 mg chewable tablet (20 sources) Platelet Aggregation Inhibitor, Nonsteroidal Anti-inflammatory Drug Start: 12-11-2023 take 1 tablet by mouth once daily Aspirin 81 mg tablet,chewable Active 81 MG PO Daily December 11, 2023 1:00am Complies with drug therapy take 1 tablet by mouth once zheng y aspirin 81 MG EC tablet Take 81 mg by mouth Daily Active take 1 tablet by jatin th every twenty-four hours Aspirin 81 MG 1 Tablet Orally Daily Acti ve 24 hr buPROPion hydrochloride 300 mg extended release oral tablet (20 sources) Aminoketone Start: 05-06-2024 take 1 tablet by mouth once daily buPROPion XL (Wellbutrin XL) 300 MG 24 hr tablet Take 300 mg by mouth Daily 05/06/2024 Active Start: 04-01-2024 End: 03-26-2025 take 1 tablet by mouth once daily Bupropion Hcl 150 mg tablet sustained-release 12 hr Discontinued 300 MG PO Daily April 01, 2024 11:32am March 26, 2025 1:17pm Start: 02-05-2024 buPROPion XL ( WELLBUTRIN XL) 300 mg 24 hr tablet 02/05/2024 Active Start: 12-11-2023 End: 04-01-2024 take 1 tablet by mouth once daily Bupropion Hcl 150 mg tablet sustained-release 12 hr Discontinued 150 MG PO Daily December 11, 2023 1:00am April 01, 2024 11:33am Start: 05-29-2018 End: 12-11-2023 take 1 tablet by mouth every twelve hours in the morning buPROPion [...] Vitamin D Calcium Carb-Cholecalciferol 600-5 MG-MCG tablet Active calcium carbonat e 600 mg-cholecalciferol 200 units 600 mg-5 mcg (200 unit) tab Calcium 600 Active Calcium Carbonate / vitamin D3 (6 sources) Start: 03-20-2024 take 1 tablet by mouth once daily calcium carbonate-vitamin D3 (Calcium 600 with Vitamin D3) Active 1 TAB PO Daily March 20, 2024 12:00am Complies with drug therapy Start: 03-20-2024 take 1 tablet by jatin th once daily calcium carbonate-vitamin D3 (Calcium 600 with Vitamin D3) Active 1 TAB PO Daily March 20, 2024 12:00am capsaicin 0.08 mg/mg medicated patch (8 sources) Start: 05-19-2025 Capsaicin-Cleansing Gel (Qutenza, 4 Patch,) 8 % patch Indications: Diabetes 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, 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 terminal make up operator insulin use (HCC) , Neuropathy Apply 1 patch topically every 3 (three) months Follow instructions to prepare site. Prescriber to avinash area. Once applied, remove after 30 minutes and clean area with supplied gel. 1 patch 3 05/19/2025 Active carvedilol 6.25 mg oral tablet (1 source) alpha-Adrenergic Nathaly, beta-Adrenergic Nathaly Start: 03-26-2025 take 1 tablet by mouth twice daily Carvedilol 6.25 mg tablet Active 6.25 MG PO Twice daily March 26, 2025 12:00am Complies with drug therapy clindamycin 300 mg oral capsule (20 sources) Lincosamide Antibacterial Start: 05-22-2024 End: 03-31-2025 take 1 capsule by mouth in the morning clindamycin (Cleocin) 300 MG capsule Take 300 mg by mouth in the morning and 300 mg before bedtime. 05/22/2024 03/31/2025 Discontinued (Therapy completed) Docosahexaenoate (12 sources) take 1200 mg by [...] 600 MG Oral for 30 Days Active Insulin Aspart U-100 (Novolog Flexpen U-100 Insulin) 100 unit/mL (3 mL) insulin pen (5 sources) Start: 12-11-2023 Insulin Aspart U-100 (Novolog Flexpen U-100 Insulin) 100 unit/mL (3 mL) insulin pen Active 0 SUBCUT .COMPLEX December 11, 2023 1:00am 1:50 corrective scale ac tid Subcutaneous As Directed; 3 ml insulin aspart, human 100 unt/ml pen injector (6 sources) Insulin Analog Start: 12-11-2023 Insulin Aspart U-100 (Novolog Flexpen U-100 Insulin) 100 unit/mL (3 mL) insulin pen Active 0 SUBCUT .COMPLEX December 11, 2023 1:00am 1:50 corrective scale ac tid Subcutaneous As Directed; Complies with drug therapy NovoLOG FlexPen 100 UNIT/ML 1:50 corrective scale ac tid Subcutaneous As Directed Active 3 ml insulin lispro 100 unt/ml pen injector (1 source) Insulin Analog Start: 05-31-2023 HumaLOG KwikPen 100 UNIT/ML 1:50 corrective scale ac tid Subcutaneous as directed for 30 days (expect up to 20 units/day) May, Active lidocaine 25 mg/ml / prilocaine 25 mg/ml topical cream (1 source) Antiarrhythmic, Amide Local Anesthetic Start: 03-26-2025 Lidocaine-Prilocaine 2.5-2.5 % cream Active 2.5 GM TOPICAL as needed March 26, 2025 12:00am Complies with drug therapy LORazepam 0.5 mg oral tablet (20 sources) Benzodiazepine Start: 07-10-2024 End: 03-31-2025 take 1 tablet by mouth every hour LORazepam (Ativan) 0.5 MG tablet Indications: Internal derangement of left shoulder Take 1 tablet (0.5 mg) by mouth See administration instructions for 1 dose 1 tablet by mouth 1 hour prior to MRI, must have someone drive you to the appt and home from the appt 1 tablet 07/10/2024 03/31/2025 Discontinued (Therapy completed) losartan potassium 50 mg oral tablet (20 sources) Angiotensin 2 Receptor Nathaly Start: 02-01-2024 take 1.5 tablets by mouth once losartan (COZAAR) 50 mg tablet Take 1.5 tablets by mouth every afternoon. 02/01/2024 Active Start: 12-11-2023 Losartan 50 mg tablet Active 75 MG PO Daily December 11, 2023 1:00am Complies with drug therapy Start: 03-12-2023 take 2 tablets by mo uth at bedtime losartan (Cozaar) 50 MG tablet Take 100 mg by mouth at bedtime 03/12/2023 Active Start: 03-12-2023 take 1 tablet by mouth at bedt roshni losartan (Cozaar) 50 MG tablet Take 50 [...] hydrochloride 10 mg oral tablet (20 sources) B-erhall-T-aspartate Receptor Antagonist Start: 05-31-2024 End: 03-31-2025 take 1 tablet by mouth once daily memantine (Namenda) 10 MG tablet Take 10 mg by mouth Daily 05/31/2024 03/31/2025 Discontinued (Therapy completed) Start: 04-24-2024 End: 06-12-2024 take 1 tablet by mouth once daily memantine (NAMENDA) 5 mg tablet Take 1 tablet by mouth once daily. 30 tablet 3 04/24/2024 Active 24 hr metoprolol succinate 50 mg extended release oral tablet (20 sources) beta-Adrenergic Nathaly Start: 12-26-2023 End: 03-31-2025 take 1 tablet by mouth every twenty-four hours in the morning metoprolol succinate XL (Toprol-XL) 50 MG 24 hr tablet Take 50 mg by mouth in the morning and 50 mg before bedtime. 12/26/2023 03/31/2025 Discontinued (Therapy completed) Start: 12-26-2023 take 1 tablet by jatin th every twelve hours metoprolol succinate ER (TOPROL XL) 50 mg 24 hr tablet Take 1 tablet by mouth every 12 hours. 12/26/2023 Active Start: 05-29-2018 End: 03-31-2025 take 1 tablet by mouth twice daily Metoprolol Tartrate 50 mg tablet Active 50 MG PO Twice daily December 11, 2023 1:00am Complies with drug therapy Start: 05-29-2018 End: 12-11-2023 Metoprolol Tartrate 50 mg ta blet Discontinued May 29, 2018 12:00am December 11, 2023 12:22pm take 1 tablet by jatin every twenty-four hours Metoprolol Tartrate 100 MG 1 tablet with food Orally Daily Active take 1 tablet by jatin every twenty-four hours Metoprolol Tartrate 50 MG 1 Tablet Orally Daily Active Nitro Sublingual 0.4 (20 sources) Nitro Sublingual 0.4 Sublingual As Directed Active nitroglycerin 0.4 mg sublingual tablet (20 sources) Nitrate Vasodilator Start: 12-11-2023 Nitroglycerin 0.4 mg tablet, sublingual Active 0.4 MG SUBLINGUAL as needed December 11, 2023 1:00am Complies with drug therapy Start: 04-19-2022 nitroglycerin (Nitrostat) 0.4 MG SL tablet 09/20/2023 Active [place] 0-Tba-Mjd-Fish Oil (Fi sh Oil) 1,000 mg (120 mg-180 mg) Capsule (8 sources) Start: 05-29-2018 [place] 3-Dha-Ep a-Fish Oil (Fish Oil) 1,000 mg (120 mg-180 mg) Capsule Active May 29, 2018 12:00am Complies with drug therapy Start: 05-29-2018 [place] 3-Dha-Ep a-Fish Oil (Fish Oil) 1,000 mg (120 mg-180 mg) Capsule Active May 29, 2018 12:00am Start: 05-29-2018 [place] 3-Dha-Ep a-Fish Oil (Fish Oil) 1,000 mg (120 mg-180 mg) Capsule Active May 28, 2018 11:00pm pioglitazone 30 mg oral tablet (20 sources) Peroxisome Proliferator Receptor alpha Agonist, Peroxisome Proliferator Receptor gamma Agonist, Thiazolidinedione Start: 06-03-2024 End: 03-26-2025 take 1 tablet by mouth once daily Pioglitazone 30 mg tablet Active 0 .ROUTE .COMPLEX 90 March 26, 2025 1:24pm TAKE 1 TABLET BY MOUTH EVERY DAY FOR 90 DAYS Complies with drug therapy Start: 05-09-2023 End: 06-03-2024 take 1 tablet by mouth once daily pioglitazone (Actos) 30 MG tablet Take 30 mg by mouth Daily 05/09/2023 Active take 2 tablets by mo [facility] every twenty-four hours Pioglitazone HCl 15 MG 2 tablets Orally Once a day for 90 days Active take 1 tablet by jatin th every twenty-four hours Pioglitazone HCl 15 MG 1 tablet Orally Once a day for 90 day(s) Active pregabalin 75 mg oral capsule (20 sources) Start: 08-01-2024 End: 03-31-2025 take 1 capsule by mouth in the morning pregabalin (Lyrica) 75 MG capsule Take 75 mg by mouth in the morning and 75 mg before bedtime. 08/01/2024 03/31/2025 Discontinued (Therapy completed) Start: 11-17-2022 Pregabalin 100 MG 1 capsule Orally bid Q 10 DAYS Nov, Active Rezdiffra 100 MG tablet (6 sources) Start: 05-05-2025 Rezdiffra 100 MG tablet 05/05/2025 Active simvastatin 40 mg oral tablet (20 sources) HMG-CoA Reductase Inhibitor Start: 02-27-2023 take 1 tablet by mouth at bedtime simvastatin (Zocor) 40 MG tablet Take 40 mg by mouth at bedtime 02/27/2023 Active SITagliptin 100 mg oral tablet (20 sources) Dipeptidyl Peptidase 4 Inhibitor Start: 02-27-2023 End: 04-01-2024 take 1 tablet by mouth once daily Januvia 100 MG tablet Take 100 mg by mouth Daily 02/27/2023 Active Start: 05-29-2018 End: 12-11-2023 Sitagliptin Phosphate (Januv ia) 25 mg Tablet Discontinued May 29, 2018 12:00am December 11, 2023 12:23pm Start: 05-29-2018 End: 12-11-2023 Sitagliptin Phosphate (Januv ia) 25 mg Tablet Discontinued TABLET May 29, 2018 12:00am December 11, 2023 12:23pm take 0.5 tablet by m outh once daily Januvia 100 MG 1/2 tablet Orally Once a day Active sodium bicarb 650 mg (20 sources) take 2 tablets by mouth three times daily sodium bicarb 650 mg 2 tablets orally tid Active sodium bicarbonate 650 mg oral tablet (20 sources) Start: 05-29-2018 take 2 tablets by mouth in the morning, then take 2 tablets by mouth in the evening, then take 2 tablets by mouth at bedtime sodium bicarbonate 650 MG tablet Take 1,300 mg by mouth in the morning and 1,300 mg in the evening and 1,300 mg before bedtime. 09/21/2023 Active Start: 05-29-2018 End: 12-11-2023 Sodium Bicarbonate 650 mg ta blet Discontinued May 29, 2018 12:00am December 11, 2023 12:24pm Start: 05-29-2018 End: 12-11-2023 Sodium Bicarbonate 650 mg ta blet Discontinued TABLET May 29, 2018 12:00am December 11, 2023 12:24pm traMADol hydrochloride 50 mg oral tablet (20 sources) Opioid Agonist Start: 06-19-2024 End: 03-31-2025 take 1 tablet by mouth every six hours for pain traMADol (Ultram) 50 MG tablet Indications: Pain Take 1 tablet (50 mg) by mouth every 6 (six) hours if needed for severe pain or moderate pain 20 tablet 06/19/2024 03/31/2025 Discontinued (Therapy completed) Start: 05-29-2018 End: 12-11-2023 Tramadol 50 mg tablet Discon tinued May 29, 2018 12:00am December 11, 2023 12:24pm Start: 05-29-2018 End: 12-11-2023 Tramadol 50 mg tablet Discon tinued TABLET May 29, 2018 12:00am December 11, 2023 12:24pm triamcinolone acetonide 0.001 mg/mg topical ointment (20 sources) Corticosteroid Start: 01-22-2024 triamcinolone (Kenalog) 0.1 % ointment Indications: Other specified dermatitis Apply topically 2 (two) times a day as needed (Rash) Avoid face, armpits and groin. 60 g 11 01/22/2024 Active venlafaxine 75 mg oral tablet (20 sources) Serotonin and Norepinephrine Reuptake Inhibitor Start: 08-26-2024 venlafaxine (Effexor ) 75 MG tablet 08/26/2024 Active Start: 05-29-2018 End: 12-11-2023 take 1 tablet by mouth in the morning venlafaxine (Effexor) 37.5 MG tablet Take 37.5 mg by mouth in the morning and 37.5 mg before bedtime. 03/14/2023 Active Start: 05-29-2018 End: 12-11-2023 Venlafaxine 37.5 mg tablet Discontinued May 29, 2018 12:00am December 11, 2023 12:24pm Start: 05-29-2018 End: 12-11-2023 take 1 tablet by mouth in the morning venlafaxine (Effexor) 37.5 MG tablet Take 37.5 mg by mouth in the morning and 37.5 mg before bedtime. 03/14/2023 Active Completed/Discontinued Medications Medication Drug Class(es) Dates Sig (Normalized) Sig (Original) acetaminophen 325 mg / HYDROcodone bitartrate 5 mg oral tablet (8 sources) Opioid Agonist Start: 06-07-2018 End: 04-01-2024 take 1 tablet by mouth every four to six hours as needed for pain Hydrocodone-Acetami nophen 5-325 mg tablet Discontinued 1 TAB PO EVERY 4-6 HOURS as needed for pain June 07, 2018 April 01, 2024 2:54pm ALPRAZolam 0.5 mg oral tablet (6 sources) Benzodiazepine Start: 03-13-2025 End: 03-26-2025 take 1 tablet by mouth once Alprazolam (Xanax) 0.5 mg tablet Discontinued 0.5 MG PO Once 1 March 13, 2025 12:00am March 26, 2025 1:10pm Calcium + D 315-200 MG-UNIT (7 sources) take 1 tablet by mouth once daily Calcium + D 315-200 MG-UNIT 1 tablet Orally once a day Not-Taking take 1 tablet by mouth once zheng y Calcium + D 315-200 MG-UNIT 1 tablet Orally once a day Active canagliflozin 100 mg oral tablet (8 sources) Sodium-Glucose Cotransporter 2 Inhibitor Start: 05-29-2018 End: 12-11-2023 Canagliflozin (Invokana) 100 mg tablet Discontinued May 29, 2018 12:00am December 11, 2023 12:22pm ciprofloxacin 500 mg oral tablet (8 sources) Quinolone Antimicrobial Start: 06-07-2018 End: 03-20-2024 take 1 tablet by mouth every two hours Ciprofloxacin Hcl (Cipro) 500 mg tablet Discontinued 500 MG PO Q12H June 07, 2018 12:00am March 20, 2024 1:47pm administer dose at least 2 hrs before/6 hrs after dairy products, calcium, zinc, and/or iron-containing products FreeStyle Baylee Bearden - (7 sources) FreeStyle Baylee Bearden - use with baylee sensor SQ daily for 365 days has but not using Not-Taking FreeStyle Baylee Sensor System - (7 sources) FreeStyle Baylee Sensor System - use with baylee reader SQ change every 10 days for 90 days has but not usint Not-Taking 1 ml methylPREDNISolone acetate 40 mg/ml injection (4 sources) Corticosteroid Start: 06-12-2024 End: 06-12-2024 methylPREDNISolone acetate (DEPO-Medrol) injection 40 mg Start: 06-12-2024 End: 06-12-2024 40 mg, Intra-articular, Once PRN Procedure, Starting on Mon06/12/24 at 0939, For 1 dose oxybutynin chloride 5 mg oral tablet (8 sources) Cholinergic Muscarinic Antagonist Start: 06-07-2018 End: 04-01-2024 take 1 tablet by mouth twice daily as needed for muscle spasms Oxybutynin Chloride 5 mg tablet Discontinued 5 MG PO Twice daily as needed for bladder spasms 60 June 07, 2018 12:00am April 01, 2024 2:54pm tiZANidine 4 mg oral capsule (20 sources) Central alpha-2 Adrenergic Agonist Start: 04-01-2024 End: 03-13-2025 take 1 capsule by mouth twice daily as needed Tizanidine 4 mg capsule Discontinued 4 MG PO Twice daily as needed April 01, 2024 12:00am March 13, 2025 1:22pm Start: 12-11-2023 End: 03-20-2024 take 1 capsule by mouth once daily as needed Tizanidine 4 mg capsule Active 4 MG PO Daily as needed March 20, 2024 1:48pm Complies with drug therapy Start: 04-15-2023 take 1 tablet by jatin th at bedtime tiZANidine (Zanaflex) 4 MG tablet Take 4 mg by mouth at bedtime 04/15/2023 Active take 1 tablet by jatin th once daily tiZANidine HCl 4 MG 1 tab Orally daily Active tiZANidine HCl A ctive Problems Active Problems Problem Classification Problem Date Documented Da te Episodic/Chronic Acquired foot deformities (13 sources) Acquired deformity of toe of right foot; Translations: [Acquired deformities of toe(s), unspecified, right foot] 07-24-2024 Episodic Adjustment disorders (3 sources) Adjustment disorder with depressed mood; Translations: [Adjustment disorder with depressed mood] 04-24-2024 Chronic Allergic reactions (1 source) Eczema of lower limb; Translations: [Dermatitis, unspecified] 02-29-2024 Episodic Anxiety disorders (20 sources) Claustrophobia; Translations: [Claustrophobia] Onset: 5 03-13-2025 Chronic Anxiety disorders (7 sources) 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 condition; Translations: [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 condition] Onset: 5 Episodic Chronic ulcer of skin (20 sources) Non-pressure chronic ulcer of other part of right lower leg with fat layer exposed; Translations: [Ulcer of other part of lower limb] Onset: 5 06-25-2024 Chronic Conditions associated with dizziness or vertigo (2 sources) Cochlear hydrops of right inner ear; Translations: [Meniere's disease, right ear] 04-30-2025 Chronic Congestive heart failure; nonhypertensive (1 source) Unspecified systolic (congestive) heart failure; Translations: [UNSPECIFIED SYSTOLIC HEART FAILURE] Onset: 3 Chronic Coronary atherosclerosis and other heart disease (20 sources) Coronary arteriosclerosis; Translations: [Atherosclerotic heart disease of gambell coronary artery without angina pectoris] Onset: 9 [...] Chronic Hypertension with complications and secondary hypertension (20 sources) Benign hypertensive 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; Translations: [Hypertensive heart disease without heart failure] Onset: 4 03-28-2025 Chronic Mycoses (5 sources) Pain in toe; Translations: [Tinea unguium] 08-08-2024 Episodic Nutritional deficiencies (20 sources) Vitamin D deficiency; Translations: [Vitamin D deficiency, unspecified] Chronic Open wounds of extremities (7 sources) Amputated big toe; Translations: [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, initial encounter] 07-31-2024 Chronic Osteoarthritis (10 sources) Arthritis of left acromioclavicular joint; Translations: [Primary osteoarthritis, left shoulder] 07-23-2024 Chronic Other aftercare (1 source) superintendent terminal (current) use of aspirin; Translations: [SNF CURRENT USE OF ASPIRIN] Onset: 3 Episodic Other aftercare (1 source) Other nursing home (current) drug therapy; Translations: [OTH SNF CURRENT DRUG THERAPY] Onset: 3 Episodic Other and ill-defined heart disease (20 sources) Left ventricular hypertrophy; Translations: [Cardiomegaly] Onset: 4 03-28-2025 Chronic Other and ill-defined heart disease (2 sources) Cardiomegaly; Translations: [Cardiomegaly] Onset: 4 Chronic Other connective tissue disease (3 sources) Pain in unspecified foot Episodic Other connective tissue disease (4 sources) Impingement syndrome of right shoulder; Translations: [IMPINGEMENT SYNDROME RIGHT SHOULDER] Onset: 3 Episodic Other connective tissue disease (16 sources) Chronic pain of right foot; Translations: [Pain in right toe(s)] Onset: 4 02-05-2024 Episodic Other connective tissue disease (6 sources) Full thickness rotator cuff tear; Translations: [Complete rotator cuff tear or rupture of left shoulder, not specified as traumatic] 07-23-2024 Episodic Other connective tissue disease (2 sources) Pain in right toe(s); Translations: [Pain in limb] Onset: 4 03-19-2025 Episodic Other connective tissue disease (6 sources) Pain in right foot; Translations: [Pain in right foot] 08-29-2024 Episodic Other connective tissue disease (7 sources) Pain in right lower limb; Translations: [Pain in right leg] 03-13-2025 Episodic Other connective tissue disease (6 sources) Pain in right leg; Translations: [Pain in limb] Onset: 5 03-13-2025 Episodic Other connective tissue disease (20 sources) Non-traumatic tendon rupture; Translations: [Spontaneous rupture of other tendons, right upper arm] Onset: 5 03-28-2025 Episodic Other connective tissue disease (2 sources) Pain of toe of right foot; Translations: [Pain in right toe(s)] 03-19-2025 Episodic Other connective tissue disease (5 sources) Recurrent falls ; Translations: [Repeated falls] 04-10-2025 Episodic Other diseases of veins and lymphatics (4 sources) Lymphedema, not elsewhere classified; Translations: [LYMPHEDEMA NOT ELSEWHERE CLASSIFIED] Onset: 3 Chronic Other diseases of veins and lymphatics (6 sources) Lymphedema of right lower limb; Translations: [Lymphedema, not elsewhere classified] 04-01-2024 Chronic Other diseases of veins and lymphatics (5 sources) Vascular insufficiency; Translations: [Venous insufficiency (chronic) (peripheral)] 06-25-2024 Episodic Other diseases of veins and lymphatics (20 sources) Peripheral venous insufficiency; Translations: [Venous insufficiency (chronic) (peripheral)] Onset: 5 03-28-2025 Episodic Other diseases of veins and lymphatics (2 sources) Venous insufficiency (chronic) (peripheral); Translations: [Venous insufficiency (chronic) (peripheral)] Onset: 5 Episodic Other ear and sense organ disorders (6 sources) Asymmetrical sensorineural hearing loss; Translations: [Sensorineural hearing loss, bilateral] 03-28-2025 Chronic Other ear and sense organ disorders (1 source) Bilateral tinnitus; Translations: [Tinnitus, bilateral] 03-28-2025 Episodic Other liver diseases (20 sources) Steatosis of liver; Translations: [Fatty (change of) liver, not elsewhere classified] Chronic Other nervous system disorders (20 sources) Neuropathy; Translations: [Polyneuropathy, unspecified] 05-05-2025 Chronic Other nervous system disorders (3 sources) [...] pain, right foot] Onset: 4 Chronic Other nervous system disorders (10 sources) Impairment of balance; Translations: [Other abnormalities of gait and mobility] 03-28-2025 Episodic Other nervous system disorders (5 sources) Unsteady when standing; Translations: [Unsteadiness on feet] 04-10-2025 Episodic Other non-traumatic joint disorders (7 sources) Derangement [...] Translations: [Body mass index (BMI) 40.0-44.9, adult] 03-20-2024 Chronic Other nutritional; endocrine; and metabolic disorders (19 sources) Body mass index (BMI) 40.0-44.9, adult; [...] nutritional; endocrine; and metabolic disorders (3 sources) Obesity, unspecified; Translations: [OBESITY UNSPECIFIED] Onset: 3 Chronic Other nutritional; endocrine; and metabolic disorders (20 sources) Severe obesity; Translations: [Morbid (severe) obesity [...] extremity] Onset: 3 Episodic Residual codes; unclassified (20 sources) Sleep apnea; Translations: [Sleep apnea, unspecified] Onset: 3 03-28-2025 Chronic Residual codes; unclassified (2 sources) Sleep apnea, unspecified; Translations: [Sleep apnea, unspecified] Onset: 3 Chronic Residual codes; unclassified (1 source) Edema, unspecified; Translations: [EDEMA UNSPECIFIED] Onset: 3 Episodic Residual codes; unclassified (6 sources) Dependent edema; Translations: [Edema, unspecified] 04-01-2024 Episodic Skin and subcutaneous tissue infections (3 sources) Cellulitis of right lower limb; Translations: [Cellulitis of right lower limb] Onset: 5 Episodic Spondylosis; intervertebral disc disorders; other back problems (20 sources) Low back pain; Translations: [Low back pain] 03-13-2025 Episodic Sprains and strains (20 sources) Injury of upper extremity; Translations: [Strain of muscle, fascia and tendon of triceps, right arm, initial encounter] Onset: 5 03-28-2025 Episodic Superficial injury; contusion (1 source) Abrasion of nose, initial encounter; Translations: [ABRASION OF NOSE INITIAL ENCOUNTER] Onset: 3 Episodic Unclassified (4 sources) CHRN KIDNEY DISEASE STG 3 UNSP; Translations: [CHRN KIDNEY DISEASE STG 3 UNSP] Onset: 2 Unclassified (1 source) Class 3 severe obesity with serious comorbidity and body mass index (BMI) of 40.0 to 44.9 in adult, unspecified obesity type (HCC); Translations: [Class 3 severe obesity with serious comorbidity and body mass index (BMI) of 40.0 to 44.9 in adult, unspecified obesity type (HCC)] Onset: 4 Unclassified (1 source) Low back pain, unspecified; Translations: [Low back pain, unspecified] Onset: 5 Unclassified (1 source) Obesity, class 3; Translations: [Obesity, class 3] Onset: 3 Past or Other Problems Problem Classification Problem Date Documented Da te Episodic/Chronic Administrative/social admission (20 sources) Dietary counseling and surveillance; Translations: [Patient encounter status] Onset: 01-13-2022 Resolved: 04-21-2022 Episodic Nonspecific chest pain (20 sources) Precordial pain; Translations: [Chest pain] Onset: 01-08-2013 03-28-2025 Episodic Other aftercare (20 sources) Long-term current use of insulin; Translations: [superintendent terminal (current) use of insulin] Onset: 06-26-2024 04-01-2024 Episodic Other aftercare (3 sources) superintendent terminal (current) use of insulin; Translations: [superintendent terminal (current) use of insulin] Onset: 11-25-2022 Episodic Other connective tissue disease (4 sources) Pain in right foot; Translations: [PAIN IN RIGHT FOOT] Onset: 08-18-2022 Episodic Other diseases of kidney and ureters (4 sources) Cyst of kidney, acquired; Translations: [CYST OF KIDNEY ACQUIRED] Onset: 2022 Episodic Other lower respiratory disease (3 sources) Other forms of dyspnea; Translations: [OTHER FORMS OF DYSPNEA] Onset: 01-01-2023 Episodic Other lower respiratory disease (20 sources) Dyspnea on exertion; Translations: [Other forms of dyspnea] Onset: 12-18-2024 03-28-2025 Episodic Other non-traumatic joint disorders (20 sources) Pain in elbow; Translations: [Pain in right elbow] Onset: 12-18-2024 03-28-2025 Episodic Unclassified (1 source) CHRN KIDNEY DISEASE STG 3 UNSP; Translations: [CHRN KIDNEY DISEASE STG 3 UNSP] Onset: 11-08-2022 Unclassified (1 source) Obesity, class 3; Translations: [Obesity, class 3] Onset: 12-18-2024 Results Test Name Value Interpretation Reference Range [facility] 06-25-[address] [place] [address] Case Information Case Priority: None Programs: -- Referral Source: Addressograph Operator Referral Reason: Disease management Case Type: Chronic Care Management Risk Score: -- Case Status: Active (March 11, 2025) Date Assigned: February 24, 2025 Assigned By: Conrad Yoon Date Enrolled: March 11, 2025 Assigned Primary Personnel: Conrad Yoon Assigned Secondary Personnel: -- Case Physician: Nanette Do Ongoing Acquired absence of right great toe 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 Acquired absence of third toe of right foot Allergic rhinitis Anticoagulated At risk for falls Balance problem Benign hypertension with chronic kidney disease, stage III Bilateral leg pain BMI 40.0-44.9, adult BPH with obstruction/lower urinary tract symptoms Calculus of gallbladder without cholecystitis without obstruction Chronic painful diabetic neuropathy Complex renal cyst 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 Dizziness Dizziness and giddiness Encounter for annual wellness visit (AWV) in Medicare patient Erythema of skin Fatty liver GERD (gastroesophageal reflux disease) Hiatal hernia History of kidney stones Impotence Injury of right elbow Insomnia Long-term insulin use Lumbar spondylosis Lumbar stenosis Major depressive disorder, 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 Mixed hyperlipidemia Morbid obesity with BMI of 40.0-44.9, adult SANTANA (nonalcoholic steatohepatitis) Need for hepatitis C screening test Nonsmoker OA (osteoarthritis) Obesity, morbid, BMI 40.0-49.9 ULISES (obstructive sleep apnea) Pain in toe of right foot Pain, foot, right, chronic Peripheral edema Psoriasis Renal mass Stage 3a chronic kidney disease Stasis ulcer Type 2 diabetes mellitus with hyperlipidemia Type 2 diabetes mellitus with peripheral vascular disease Urgency of urination Vitamin D deficiency Weakness [...] Placement of stent in cardiac conduit, Stimulator. Home Medications acarbose 25 mg oral tablet, See Instructions acarbose 50 mg Tab, 50 mg= 1 tab(s), Oral, TID, 1 refills aspirin 81 mg Oral EC Tab, 81 mg= 1 tab(s), Oral, Daily buPROPion 300 mg/24 hours ER Tab, See Instructions, 3 refills busPIRone 10 mg Tab, 10 mg= 1 tab(s), Oral, TID calcium (as carbonate) 600 mg oral tablet, 600 mg= 1 tab(s), Oral, Daily carvedilol 6.25 mg Tab cyclobenzaprine 10 mg Tab, 10 mg= 1 tab(s), Oral, TID, PRN Fish Oil 1200 mg oral capsule, 1200 mg= 1 cap(s), Oral, Daily Handicap Placard, 5 years., See Instructions Januvia 100 mg Tab, See Instructions, 1 refills losartan 50 mg Tab, See Instructions, 4 refills Multi Vitamins oral tablet, 1 tab(s), Oral, Daily nitroglycerin 0.4 mg sublingual Tab, 0.4 mg= 1 tab(s), SubLingual, q5min, PRN NovoLog, See Instructions pioglitazone 30 mg Tab, 30 mg= 1 tab(s), Oral, Daily Potassium Chloride (Vue-Wodj-Kua M20) 20 mEq oral tablet, extended release, 20 mEq= 1 tab(s), Oral, Daily Rezdiffra 100 mg oral tablet, 100 mg= 1 tab(s), Oral, Daily, 11 refills SEROquel 50 mg ER Tab, 50 mg= 1 tab(s), Oral, Bedtime, Not taking simvastatin 20 mg Tab, 20 mg= 1 tab(s), Oral, qPM, 4 refills simvastatin 40 mg Tab, See Instructions, 1 refills sodium bicarbonate 650 mg Tab, 1950 mg= 3 tab(s), Oral, TID sodium bicarbonate 650 mg Tab, 1300 mg= 2 tab(s), Oral, TID, 3 refills tiZANidine 4 mg Tab, See Instructions, 1 refills tiZANidine 4 mg Tab, 4 mg= 1 tab(s), Oral, q8hr venlafaxine 75 mg Tab, See Instructions, 1 refills Allergies Cefuroxime Axetil (Uncontrollable vomiting) CeleBREX (intolerance, unknown) Clinoril (intolerance, coughing) Dolobid (intolerance) NSAIDs (intolerance, unknown) Naprosyn (intolerance, Unknown) Trulicity (intolerance) Victoza (intolerance) Vioxx (intolerance, Unknown cause) (more content not included)... Normal [facility] 37on 06-24-2025 37 *Increase carvedilol to 12.5mg twice daily (you can take 2 tablets of your current 6.25mg tablets until this runs out then take 1 tablet twice daily of the new prescription). *Start lasix 40mg daily for 3 days to see if this will help with leg swelling. Then take as needed for worsening leg swelling. *We ordered for kelfex to see if this will help with suspected skin infection in your leg. Take keflex every 6 hours for 10 days. Recommend taking a probiotic while on an antibiotic to try to help avoid GI upset. *Referral also sent for wound care clinic. [facility] Office Visiton 06-24-2025 Follow-up visit [id number] Dong Whitmore 1950 M Date Provider Department Center 06/24/2025 166-[address]ARICIO Family History Problem Relation Age of Onset Stroke Mother Stroke Father Coronary artery disease Other Diabetes Other Family Status - Relation Status Age at Mother Father Other Level of Service:[address]371 [place] OFFICE/OUTPATIENT ESTABLISHED MOD MDM 30 MIN Reason for Visit and Comments: Coronary Artery Disease [187] Hypertension [680432] - Had labs last week. Hyperlipidemia [182] Follow-up [617469] - Patient is here today for a 3 month routine follow up. Patient states he has no cardiac complaints at this time. [facility] .Interpretation:on Interpretation: Comment Invalid Interpretation Code [facility] Comment on above: Result Comment: Not infected with HCV unless early or acute infection is suspected (which may be delayed in an immunocompromised individual), or other evidence exists to indicate HCV infection. Performed at: [facility] [id number] PhD Faye Ring Performed By: #### 2 [id number] #### [facility] [address] [place] [address] HCV Antibody RFX to Quant PC Jack 06-21-2025 HCV Ab Non-Reactive Invalid Interpretation Code Non Reactive [facility] Comment on above: Result Comment: Perf ormed at: [facility] [address] [id number] PhD Faye Ring Performed By: #### 2 [id number] #### [facility] [address] [place] [address] Ambulatory Visit Summaryon 0 06-19-2025 Ambulatory Visit Summary Ambulatory Visit Summary DONG WHITMORE :1950 Visit Date:06/19/2025 Ambulatory Visit Instructions Your Diagnosis Pain in toe of right foot Non-smoker BMI 40.0-44.9, adult These Are Your Goals Symptoms of Depression will be Reduced - Not met Interventions: Learn About Triggers, Prevention and Management - Not done Learn Ways to Self-Manage Depression - Not done Learn to Recognize Signs of Depression - Not done Refer to a Behavioral Health Specialist - Not done Review Educational Material - Not done Reduce Fall Risk - Not met Interventions: Learn About Home Safety to Prevent Falls or Injury - Not done Review Educational Material - Not done Take Breaks When Needed - Not done Use Cane When Walking - Not done Manage Chronic Pain and Improve Quality of Life - Not met Interventions: Complete testing as Directed by Providers - Not done Follow up with Providers as Directed - Not done Referral for Pain Psychiatrist (prefers local, closer to home) - Not done Review Educational Material - Not done Take Medications as Prescribed - Not done Prevent Complications Related to Diabetes - Not met Interventions: Complete Testing as Directed by Providers - Not done Keep Follow Up Appointments as Sceduled with Providers - Not done Review Educational Material - Not done Take Medications as Prescribed - Not done Your Care Team Attending Physician - Nanette Do Primary Care Physician - Nanette Do This Is Your Medications List [facility] Prescription (Eric Prather, 5 years.) acarbose (acarbose 25 mg oral tablet) aspirin (aspirin 81 mg Oral EC Tab) buPROPion (buPROPion 300 mg/24 hours ER Tab) calcium carbonate (calcium (as carbonate) 600 mg oral tablet) carvedilol (carvedilol 6.25 mg Tab) cyclobenzaprine (cyclobenzaprine 10 mg Tab) insulin aspart (NovoLog) losartan (losartan 50 mg Tab) multivitamin (Multi Vitamins oral tablet) nitroglycerin (nitroglycerin 0.4 mg sublingual Tab) omega-3 polyunsaturated fatty acids (Fish Oil 1200 mg oral capsule) pioglitazone (pioglitazone 30 mg Tab) potassium chloride (Potassium Chloride (Rms-Tybn-Vml M20) 20 mEq oral tablet, extended release) quetiapine (SEROquel 50 mg ER Tab) resmetirom (Rezdiffra 100 mg oral tablet) simvastatin (simvastatin 20 mg Tab) simvastatin (simvastatin 40 mg Tab) sitagliptin (Januvia 100 mg Tab) sodium bicarbonate (sodium bicarbonate 650 mg Tab) sodium bicarbonate (sodium bicarbonate 650 [...] conduit, Stimulator. Discharge Vitals Temperature (Temporal Artery) 36.4 ???C Heart Rate (Peripheral) 68 Respiratory Rate 20 Blood Pressure 122/82 Height 168.0 cm Height 66 in Weight 117.9 kg Weight 259.925 lb BMI 41.77 What to do next Scheduled Follow-Up Appointments 2024 9:20 AM EDT With: Where: [address] [address]- Monday 9:15 AM EDT With: LATRICIA SCHUSTER, Araceli Treadwell Where: [facility] [address] [place] [address]- 2024 9:40 AM EST With: Nanette Do Where: [address] [address]- 2025 8:00 AM EDT With: Where: [address] [address]- Medications What How Much When Why Instructions Unchanged acarbose (acarbose 25 mg oral tablet) See instructions TAKE 2 TABLETS BY MOUTH 3 TIMES A DAY Unchanged aspirin (aspirin 81 mg Oral EC Tab) 1 Tablets By Mouth Every day Unchanged buPROPion (buPROPion 300 mg/ 24 hours ER Tab) See instructions TAKE 1 TABLET BY MOUTH EVERY DAY Unchanged c (more content not included)... Normal [facility] CBC w/ Auto Diffon 5 Basophil Absolute 0.0 E9/L Normal 0.0-0.2 [facility] Comment on above: Performed By: #### 2 [id number] #### [facility] [address] [place] [address] Basophils/100 WBC (Bld) 0.6 % Normal 0.0-2.0 [facility] Comment on above: Performed By: #### 2 [id number] #### [facility] [address] [place] [address] Eos Absolute 0.2 E9/L Normal 0.0-0.5 [facility] Comment on above: Performed By: #### 2 [id number] #### [facility] [address] [place] [address] Eosinophils/100 WBC (Bld) 3.1 % Normal 0.0-8.0 [facility] Comment on above: Performed By: #### 2 [id number] #### [facility] [address] [place] [address] Erythrocyte distribution width (RBC) [Ratio] 14.3 % High 10.9-14.2 [facility] Comment on above: Performed By: #### 2 [id number] #### [facility] [address] [place] [address] Hematocrit (Bld) [Volume fraction] 33.2 % Low 37.7-49.0 [facility] Comment on above: Performed By: #### 2 [id number] #### [facility] [address] [place] [address] Hemoglobin (Bld) [Mass/Vol] 11.3 g/dL Low 13.5-17.5 [facility] Comment on above: Performed By: #### 2 [id number] #### [facility] [address] [place] [address] Lymph Absolute 0.7 E9/L Low 1.0-4.0 [facility] Comment on above: Performed By: #### 2 [id number] #### [facility] [address] [place] [address] Lymphocytes/100 WBC (Bld) 11.1 % Low 14.0-50.0 [facility] Comment on above: Performed By: #### 2 [id number] #### [facility] [address] [place] [address] MCH (RBC) [Entitic mass] 28.1 pg Normal 27.0-34.0 [facility] Comment on above: Performed By: #### 2 [id number] #### [facility] [address] [place] [address] MCHC (RBC) [Mass/Vol] 34.0 g/dL Normal 31.4-36.0 [facility] Comment on above: Performed By: #### 2 [id number] #### [facility] [address] [place] [address] MCV (RBC) [Entitic vol] 82.9 fL Normal 80.0-100.0 [facility] Comment on above: Performed By: #### 2 [id number] #### [facility] [address] [place] [address] [place] Absolute 0.4 E9/L Normal 0.2-1.0 [facility] Comment on above: Performed By: #### 2 [id number] #### [facility] [facility] [address] [place] [address] Monocytes/100 WBC (Bld) 6.3 % Normal 4.0-14.0 [facility] Comment on above: Performed By: #### 2 [id number] #### [facility] [address] [place] [address] Neutro Absolute 5.0 E9/L Normal 2.0-7.5 [facility] Comment on above: Performed By: #### 2 [id number] #### [facility] [address] [place] [address] Neutro Auto 78.9 % High 36.0-75.0 [facility] Comment on above: Performed By: #### 2 [id number] #### [facility] [address] [place] [address] Platelet 210.0 E9/L Normal 150.0-500.0 [facility] Comment on above: Performed By: #### 2 [id number] #### [facility] [address] [place] [address] Platelet mean volume (Bld) [Entitic vol] 8.6 fL Normal 6.4-10.8 [facility] Comment on above: Performed By: #### 2 [id number] #### [facility] [address] [place] [address] RBC 4.0 E12/L Low 4.3-5.9 [facility] Comment on above: Performed By: #### 2 [id number] #### [facility] [address] [place] [address] WBC 6.4 E9/L Normal 4.0-11.0 [facility] Comment on above: Performed By: #### 2 [id number] #### [facility] [address] [place] [address] CMPon 06-19-2025 Albumin [Mass/Vol] 3.9 g/dL Normal 3.3-5.0 [facility] Comment on above: Performed By: #### 2 [id number] #### [facility] [address] [place] [address] Albumin/Globulin [Mass ratio] 1.5 {ratio} Normal 1.1-2.2 [facility] Comment on above: Performed By: #### 2 [id number] #### [facility] [address] [place] [address] Alk Phos 78 Int._Unit/L Normal 21-98 [facility] Comment on above: Performed By: #### 2 [id number] #### [facility] [address] [place] [address] ALT 27 Int._Unit/L Normal 6-46 [facility] Comment on above: Performed By: #### 2 [id number] #### [facility] [address] [place] [address] Anion gap [Moles/Vol] 11 mmol/L Normal 6-16 [facility] Comment on above: Performed By: #### 2 [id number] #### [facility] [address] [place] [address] AST 25 Int._Unit/L Normal 5-43 [facility] Comment on above: Performed By: #### 2 [id number] #### [facility] [address] [place] [address] Bili Total 0.3 mg/dL Normal 0.0-1.1 [facility] Comment on above: Performed By: #### 2 [id number] #### [facility] [address] [place] [address] BUN/Creat Ratio 22 No Units High 10-20 [facility] Comment on above: Performed By: #### 2 [id number] #### [facility] [address] [place] [address] Calcium [Mass/Vol] 9.0 mg/dL Normal 8.9-11.1 [facility] Comment on above: Performed By: #### 2 [id number] #### [facility] [address] [place] [address] Chloride [Moles/Vol] 106 mmol/L Normal 101-111 [facility] Comment on above: Performed By: #### 2 [id number] #### [facility] [address] [place] [address] CO2 [Moles/Vol] 22 mmol/L Normal 21-31 [facility] Comment on above: Performed By: #### 2 [id number] #### [facility] [address] [place] [address] Creatinine [Mass/Vol] 1.3 mg/dL Normal 0.5-1.3 [facility] Comment on above: Performed By: #### 2 [id number] #### [facility] [address] [place] [address] Globulin (S) [Mass/Vol] 2.6 g/dL Normal 1.4-4.0 [facility] Comment on above: Performed By: #### 2 [id number] #### [facility] [address] [place] [address] Glucose [Mass/Vol] 203 mg/dL High 55-199 [facility] Comment on above: Performed By: #### 2 [id number] #### [facility] [address] [place] [address] Potassium [Moles/Vol] 4.0 mmol/L Normal 3.5-5.3 [facility] Comment on above: Performed By: #### 2 [id number] #### [facility] [address] [place] [address] Protein [Mass/Vol] 6.5 g/dL Normal 6.0-7.8 [facility] Comment on above: Performed By: #### 2 [id number] #### [facility] [address] [place] [address] Sodium [Moles/Vol] 135 mmol/L Normal 135-145 [facility] Comment on above: Performed By: #### 2 [id number] #### [facility] [address] [place] [address] Urea nitrogen [Mass/Vol] 28 mg/dL High 5-21 [facility] Comment on above: Performed By: #### 2 [id number] #### [facility] [address] [place] [address] Family Medicine Office/Clini c Noteon 06-19-2025 Family Medicine Office/Clinic Note Family Medicine Office/Clinic Note HPI Staff please do ISABELA and PQH9 Dong is a 74 year old male presenting with 1 month f/u for insomnia DALILA encouraged to take 2 Seroquel 1 hour before bedtime if this helps dose will be increased to 100 mg ISABELA- 14 PHQ- 12 Stopped taking Seroquel because it makes him sleepy but the pain in his toes he can not sleep s he is taking the Tizanidine 4 mg He is only sleeping only 2 hours, last night he did not sleep at all He is supposed to get his liver checked after a month from starting Rezdiffra History of Present Illness pt presents today for 1 month follow up Review of Systems PHQ Score Initial Depression Screen Score: 0 SCORE Physical Exam Vitals & Measurements T: 36.4 ???C(Temporal Artery) HR: 68(Peripheral) RR: 20 BP: 122/82 SpO2: 100% HT: 66 in HT: 168.0 cm WT: 117.9 kg WT: 259.925 lb BMI: 41.77 General: alert, no acute distress ENMT: oral mucosa moist, no pharyngeal erythema or exudate Cardiovascular: regular rate and rhythm, normal peripheral perfusion Respiratory: Lungs CTA, respirations non labored Extremities: no deformity, no trauma Neurological: oriented x 4, LOC appropriate for age, CN II-XII intact, motor strength equal & normal bilaterally, speech normal Assessment/Plan 1. Pain in toe of right foot (M79.674: Pain in right toe(s)) pt continues having severe toe pain of right middle toe. pt has tried many different meds, therapy, psych therapy, has seen several podiatrists. has considered ketamine. would like to try dry needling at [place]. pt feels he has tried everything and he just can't get it under control. RTC 3 months Ordered: busPIRone, 10 mg = 1 tab(s), Oral, TID, # 90 tab(s), Refills(s) 0, Pharmacy: [facility]/pharmacy #[id number], 168, cm, 06/19/25 11:19:00 EDT, Height/Length Dosing, 117.9, kg, 06/19/25 11:19:00 EDT, Weight Dosing Lab Specimen Collect [id number] Physical Therapy Evaluation - External Facility 2. Non-smoker (Z78.9: Other specified health status) continue not smoking Ordered: busPIRone, 10 mg = 1 tab(s), Oral, TID, # 90 tab(s), Refills(s) 0, Pharmacy: [facility]/pharmacy #[id number], 168, cm, 06/19/25 11:19:00 EDT, Height/Length Dosing, 117.9, kg, 06/19/25 11:19:00 EDT, Weight Dosing Physical Therapy Evaluation - External Facility 3. BMI 40.0-44.9, adult (Z68.41: Body mass index [BMI] 40.0-44.9, adult) BMI education Ordered: busPIRone, 10 mg = 1 tab(s), Oral, TID, # 90 tab(s), Refills(s) 0, Pharmacy: [facility]/pharmacy #[id number], 168, cm, 06/19/25 11:19:00 EDT, Height/Length Dosing, 117.9, kg, 06/19/25 11:19:00 EDT, Weight Dosing Physical Therapy Evaluation - External Facility 4. Fatty liver (K76.0: Fatty (change of) liver, not elsewhere classified) will check labs today Orders: acarbose, 50 mg = 1 tab(s), Oral, TID, # 270 tab(s), Refills(s) 1, [id number] 168, cm, 06/19/25 11:19:00 EDT, Height/Length Dosing, 117.9, kg, 06/19/25 11:19:00 EDT, Weight Dosing tizanidine, See Instructions, TAKE 1 TO 2 TABLETS BY MOUTH 4 TIMES A DAY, # 270 tab(s), Refills(s) 1, [id number], 168, cm, 06/19/25 11:19:00 EDT, Height/Length Dosing, 117.9, kg, 06/19/25 11:19:00 EDT, Weight Dosing Follow-up No qualifying data available Problem List/Past Medical History Ongoing Acquired absence of right great toe 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 Acquired absence of third toe of right foot Allergic rhinitis Anticoagulated At risk for falls Balance problem Benign hypertension with chronic kidney disease, stage III Bilateral leg pain BMI 40.0-44.9, adult BPH with obstruction/lower urinary tract symptoms Calculus of gallbladder without cholecystitis without obstruction Chronic painful diabetic neuropathy Complex renal cyst 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 Dizziness Dizziness and giddiness Encounter for annual wellness visit (AWV) in Medicare patient Erythema of skin Fatty liver GERD (gastroesophageal reflux disease) Hiatal hernia History of kidney stones Impotence Injury of right elbow Insomnia Long-term insulin use Lumbar spondylosis Lumbar stenosis Major depressive disorder, 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 Mixed hyperlipidemia Morbid obesity with BMI of 40.0-44.9, adult SANTANA (nonalcoholic steatohepatitis) Need for hepatitis C screening test Nonsmoker OA (osteoarthritis) Obesity, morbid, BMI 40.0-49.9 ULISES (obstructive sleep apnea) Pain in toe of right foot Pain, foot, right, chronic Peripheral edema Psoriasis Renal mass Stage 3a chronic kidney disease Stasis ulcer Type 2 diabetes mellitus with hyperlipidemia Type 2 diabetes mellitus with peripheral vascular disease Urgency of urination Vitamin D deficiency Weakness Historical Amputation of toe of right foot Anxiety disorder BPH - benign prostatic hyperplasia Depressed mood Hyperlipidemia Neuropathy Procedure/Surgical History Percutaneous implantation of neurostimulator electrode a (more content not included)... Normal [facility] Comment on above: Result Comment: Elec tronically Signed By: Nanette Do\.br\Date and Time Signed: 06/19/25 12:35 EDT eGFRon 06-19-2025 eGFR 57 mL/min/1.73 m2 Low >=59 [facility] Comment on above: Performed By: #### 1 [id number] #### [facility] [address] [place] [address] [facility] 05-30-20 [facility] Case Information Case Priority: None Programs: -- Referral Source: Addressograph Operator Referral Reason: Disease management Case Type: Chronic Care Management Risk Score: -- Case Status: Active (March 11, 2025) Date Assigned: February 24, 2025 Assigned By: Conrad Yoon Date Enrolled: March 11, 2025 Assigned Primary Personnel: Conrad Yoon Assigned Secondary Personnel: -- Case Physician: Nanette Do Problems Ongoing Acquired absence of right great toe 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 Acquired absence of third toe of right foot Allergic rhinitis Anticoagulated At risk for falls Balance problem Benign hypertension with chronic kidney disease, stage III Bilateral leg pain BMI 40.0-44.9, adult BPH with obstruction/lower urinary tract symptoms Calculus of gallbladder without cholecystitis without obstruction Chronic painful diabetic neuropathy Complex renal cyst 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 Dizziness Dizziness and giddiness Encounter for annual wellness visit (AWV) in Medicare patient Erythema of skin Fatty liver GERD (gastroesophageal reflux disease) Hiatal hernia History of kidney stones Impotence Injury of right elbow Insomnia Long-term insulin use Lumbar spondylosis Lumbar stenosis Major depressive disorder, 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 Mixed hyperlipidemia Morbid obesity with BMI of 40.0-44.9, adult SANTANA (nonalcoholic steatohepatitis) Need for hepatitis C screening test Nonsmoker OA (osteoarthritis) Obesity, morbid, BMI 40.0-49.9 ULISES (obstructive sleep apnea) Pain, foot, right, chronic Peripheral edema Psoriasis Renal mass Stage 3a chronic kidney disease Stasis ulcer Type 2 diabetes mellitus with hyperlipidemia Type 2 diabetes mellitus with peripheral vascular disease Urgency of urination Vitamin D deficiency Weakness [...] Placement of stent in cardiac conduit, Stimulator. Home Medications acarbose 25 mg oral tablet, See Instructions aspirin 81 mg Oral EC Tab, 81 mg= 1 tab(s), Oral, Daily buPROPion 300 mg/24 hours ER Tab, See Instructions, 3 refills calcium (as carbonate) 600 mg oral tablet, 600 mg= 1 tab(s), Oral, Daily carvedilol 6.25 mg Tab cyclobenzaprine 10 mg Tab, 10 mg= 1 tab(s), Oral, TID, PRN, Not taking Fish Oil 1200 mg oral capsule, 1200 mg= 1 cap(s), Oral, Daily Handicap Placard, 5 years., See Instructions Januvia 100 mg Tab, See Instructions, 1 refills losartan 50 mg Tab, See Instructions, 4 refills Multi Vitamins oral tablet, 1 tab(s), Oral, Daily nitroglycerin 0.4 mg sublingual Tab, 0.4 mg= 1 tab(s), SubLingual, q5min, PRN NovoLog, See Instructions pioglitazone 30 mg Tab, 30 mg= 1 tab(s), Oral, Daily Potassium Chloride (Gql-Qunp-Plg M20) 20 mEq oral tablet, extended release, 20 mEq= 1 tab(s), Oral, Daily Rezdiffra 100 mg oral tablet, 100 mg= 1 tab(s), Oral, Daily, 11 refills SEROquel 50 mg ER Tab, 50 mg= 1 tab(s), Oral, Bedtime, Not taking simvastatin 20 mg Tab, 20 mg= 1 tab(s), Oral, qPM, 4 refills simvastatin 40 mg Tab, See Instructions, 1 refills sodium bicarbonate 650 mg Tab, 1950 mg= 3 tab(s), Oral, TID sodium bicarbonate 650 mg Tab, 1300 mg= 2 tab(s), Oral, TID, 3 refills tiZANidine 4 mg Tab, 4 mg= 1 tab(s), Oral, q8hr venlafaxine 75 mg Tab, See Instructions, 1 refills Allergies Cefuroxime Axetil (Uncontrollable vomiting) CeleBREX (intolerance, unknown) Clinoril (intolerance, coughing) Dolobid (intolerance) NSAIDs (intolerance, unknown) Naprosyn (intolerance, Unknown) Trulicity (intolerance) Victoza (intolerance) Vioxx (intolerance, Unknown cause) cephalosporins (Unknown) metFORMIN (intolerance) niacin (Hot flashes) Social History Alcohol - No Risk, 06/19/2019 Never., 08/14/2024 Household alcohol concerns: (more content not included)... Normal [facility] Reminderson 05-22-2025 Reminders Reminders From: Roya Álvarez To: PREM Bermudez; Sent: 07/17/2024 10:05:54 EDT Show up: 05/17/2025 10:05:00 EDT Subject: Renal US Due Date/Time: 05/17/2025 10:05:00 EDT Reminder Message Renal US to be done prior to 1 year appointment. [facility]. Order created today. f/u 07/23/25 [facility] Ambulatory Visit Summaryon 0 05-20-2025 Ambulatory Visit Summary Ambulatory Visit Summary DONG WHITMORE :1950 Visit Date:05/20/2025 Ambulatory Visit Instructions Your Diagnosis Insomnia Non-smoker BMI 40.0-44.9, adult, Body mass index [BMI] 40.0-44.9, adult Class 3 severe obesity due to excess calories with body mass index (BMI) of 40.0 to 44.9 in adult, Morbid (severe) obesity due to excess calories These Are Your Goals Symptoms of Depression will be Reduced - Not met Interventions: Learn About Triggers, Prevention and Management - Not done Learn Ways to Self-Manage Depression - Not done Learn to Recognize Signs of Depression - Not done Refer to a Behavioral Health Specialist - Not done Review Educational Material - Not done Reduce Fall Risk - Not met Interventions: Learn About Home Safety to Prevent Falls or Injury - Not done Review Educational Material - Not done Take Breaks When Needed - Not done Use Cane When Walking - Not done Manage Chronic Pain and Improve Quality of Life - Not met Interventions: Complete testing as Directed by Providers - Not done Follow up with Providers as Directed - Not done Referral for Pain Psychiatrist (prefers local, closer to home) - Not done Review Educational Material - Not done Take Medications as Prescribed - Not done Prevent Complications Related to Diabetes - Not met Interventions: Complete Testing as Directed by Providers - Not done Keep Follow Up Appointments as Sceduled with Providers - Not done Review Educational Material - Not done Take Medications as Prescribed - Not done Your Care Team Attending Physician - Nanette Do Primary Care Physician - Nanette Do This Is Your Medications List [facility] Prescription (Eric Prather, 5 years.) acarbose (acarbose 25 mg oral tablet) aspirin (aspirin 81 mg Oral EC Tab) buPROPion (buPROPion 300 mg/24 hours ER Tab) calcium carbonate (calcium (as carbonate) 600 mg oral tablet) carvedilol (carvedilol 6.25 mg Tab) cyclobenzaprine (cyclobenzaprine 10 mg Tab) insulin aspart (NovoLog) losartan (losartan 50 mg Tab) multivitamin (Multi Vitamins oral tablet) nitroglycerin (nitroglycerin 0.4 mg sublingual Tab) omega-3 polyunsaturated fatty acids (Fish Oil 1200 mg oral capsule) pioglitazone (pioglitazone 30 mg Tab) potassium chloride (Potassium Chloride (Wdz-Yzjh-Mnp M20) 20 mEq oral tablet, extended release) quetiapine (SEROquel 50 mg ER Tab) resmetirom (Rezdiffra 100 mg oral tablet) simvastatin (simvastatin 20 mg Tab) simvastatin (simvastatin 40 mg Tab) sitagliptin (Januvia 100 mg Tab) sodium bicarbonate (sodium bicarbonate 650 mg Tab) sodium bicarbonate (sodium bicarbonate 650 [...] conduit, Stimulator. Discharge Vitals Temperature (Temporal Artery) 36.2 ???C Heart Rate (Peripheral) 66 Respiratory Rate 18 Blood Pressure 150/80 Height 168.0 cm Height 66 in Weight 118.3 kg Weight 260.807 lb BMI 41.91 What to do next Scheduled Follow-Up Appointments Monday 9:15 AM EDT With: LATRICIA SCHUSTER, Araceli Treadwell Where: [facility] [address], [address] [place] [address] 8:00 AM EDT With: Where: [facility] [address] [address]- Medications What How Much When Why Instructions Unchanged acarbose (acarbose 25 mg oral tablet) See instructions TAKE 2 TABLETS BY MOUTH 3 TIMES A DAY Unchanged aspirin (aspirin 81 mg Oral EC Tab) 1 Tablets By Mouth Every day Unchanged buPROPion (buPROPion 300 mg/ 24 hours ER Tab) See instructions TAKE 1 TABLET BY MOUTH EVERY DAY Unchanged calcium carbonate (calcium (as carbonate) 600 mg oral tablet) 1 Tablets By Mouth Every day Unchanged carvedilol (carvedilol 6.25 mg Tab) TAKE 1 TABLET BY MOUTH WITH BREAKFAST (more content not included)... Normal [facility] Family Medicine Office/Clini c Noteon 05-20-2025 Family Medicine Office/Clinic Note Family Medicine Office/Clinic Note HPI Staff Mykel is a 74 year old male presenting with 5 week f/u from message from 05/02/25 he got kicked out of pain management because he was taking to many Tizanidine this was d/c'd and started they still have Tizanidine so he does not want a referral for a new pain management refills needed none History of Present Illness pt presents today for follow up on pain and insomnia. Review of Systems PHQ Score Initial Depression Screen Score: 0 SCORE Physical Exam Vitals & Measurements T: 36.2 ???C(Temporal Artery) HR: 66(Peripheral) RR: 18 BP: 144/86 SpO2: 97% HT: 168.0 cm HT: 66 in WT: 260.807 lb WT: 118.3 kg BMI: 41.91 General: alert, no acute distress ENMT: oral mucosa moist, no pharyngeal erythema or exudate Cardiovascular: regular rate and rhythm, normal peripheral perfusion Respiratory: Lungs CTA, respirations non labored Extremities: no deformity, no trauma Neurological: oriented x 4, LOC appropriate for age, CN II-XII intact, motor strength equal & normal bilaterally, speech normal Assessment/Plan 1. Insomnia (G47.00: Insomnia, unspecified) pt tired Seroquel one time. wasn't sure if he could take it when taking the tizanidine. encouraged him to take it 1 hour before bed. he will try taking 2 of them. if that helps we will increase the dose to 100mg at bedtime. RTC 4 weeks. would like to discuss possibly increasing or changing depression meds at next visit. Ordered: Body Mass Index (BMI) documented 3008F Current tobacco non-user 1036F Depression Screening Negative 3352F Influenza immunization status assessed 1030F Most recent diastolic blood pressure 80-89 mm Hg 3079F Most recent systolic blood pressure >= 140 mm Hg 3077F Patient screen for fall risk: no falls in last year or 1 fall with no injury in last year 1101F 2. Pain, foot, right, chronic (M79.671: Pain in right foot) pt called into office a few weeks ago and stated the tizanidine is not helping. that was discontinued and cyclobenzaprine was ordered. pt did not take the cyclobenzaprine but continued tizanidine and refilled it. Not following medication directions is why he was discharged from [facility]. 3. Non-smoker (Z78.9: Other specified health status) continue not smoking Ordered: Body Mass Index (BMI) documented 3008F Current tobacco non-user 1036F Depression Screening Negative 3352F Influenza immunization status assessed 1030F Most recent diastolic blood pressure 80-89 mm Hg 3079F Most recent systolic blood pressure >= 140 mm Hg 3077F Patient screen for fall risk: no falls in last year or 1 fall with no injury in last year 1101F 4. BMI 40.0-44.9, adult, (Z68.41: Body mass index [BMI] 40.0-44.9, adult)Body mass index [BMI] 40.0-44.9, adult BMI education given Ordered: Body Mass Index (BMI) documented 3008F Current tobacco non-user 1036F Depression Screening Negative 3352F Influenza immunization status assessed 1030F Most recent diastolic blood pressure 80-89 mm Hg 3079F Most recent systolic blood pressure >= 140 mm Hg 3077F Patient screen for fall risk: no falls in last year or 1 fall with no injury in last year 1101F 5. Class 3 severe obesity due to excess calories with body mass index (BMI) of 40.0 to 44.9 in adult, (E66.01: Morbid (severe) obesity due to excess calories)Morbid (severe) obesity due to excess calories see above Ordered: Body Mass Index (BMI) documented 3008F Current tobacco non-user 1036F Depression Screening Negative 3352F Influenza immunization status assessed 1030F Most recent diastolic blood pressure 80-89 mm Hg 3079F Most recent systolic blood pressure >= 140 mm Hg 3077F Patient screen for fall risk: no falls in last year or 1 fall with no injury in last year 1101F Other chronic pain (G89.29: Other chronic pain) Follow-up No qualifying data available Problem List/Past Medical History Ongoing Acquired absence of right great toe 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 Acquired absence of third toe of right foot Allergic rhinitis Anticoagulated At risk for falls Balance problem Benign hypertension with chronic kidney disease, stage III Bilateral leg pain BMI 40.0-44.9, adult BPH with obstruction/lower urinary tract symptoms Calculus of gallbladder without cholecystitis without obstruction Chronic painful diabetic neuropathy Complex renal cyst 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 Dizziness Dizziness and giddiness Encounter for annual wellness visit (AWV) in Medicare patient Erythema of skin Fatty liver GERD (gastroesophageal reflux disease) Hiatal hernia History of kidney stones Impotence Injury of right elbow Insomnia Long-term insulin use Lumbar spondylosis Lumbar stenosis Major depressive disorder, 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 Mixed hyperlipidemia Morbid obesity with BMI of 40.0-44.9, adult SANTANA (nonalcoholic steatohepatitis) Need for hepatitis C screeni (more content not included)... Normal [facility] Comment on above: Result Comment: Elec tronically Signed By: Nanette Do\.br\Date and Time Signed: 05/20/25 11:30 EDT Ambulatory Visit Summaryon 0 05-19-2025 Ambulatory Visit Summary Ambulatory Visit Summary DONG WHITMORE :1950 Visit Date:05/15/2025 Ambulatory Visit Instructions Your Diagnosis Encounter for annual wellness visit (AWV) in Medicare patient Obesity, morbid, BMI 40.0-49.9 BMI 40.0-44.9, adult Type 2 diabetes mellitus with peripheral vascular disease Long-term insulin use Chronic painful diabetic neuropathy Type 2 diabetes mellitus with hyperlipidemia Stage 3a chronic kidney disease Benign hypertension with chronic kidney disease, stage III At risk for falls These Are Your Goals Symptoms of Depression will be Reduced - Not met Interventions: Learn About Triggers, Prevention and Management - Not done Learn Ways to Self-Manage Depression - Not done Learn to Recognize Signs of Depression - Not done Refer to a Behavioral Health Specialist - Not done Review Educational Material - Not done Reduce Fall Risk - Not met Interventions: Learn About Home Safety to Prevent Falls or Injury - Not done Review Educational Material - Not done Take Breaks When Needed - Not done Use Cane When Walking - Not done Manage Chronic Pain and Improve Quality of Life - Not met Interventions: Complete testing as Directed by Providers - Not done Follow up with Providers as Directed - Not done Referral for Pain Psychiatrist (prefers local, closer to home) - Not done Review Educational Material - Not done Take Medications as Prescribed - Not done Prevent Complications Related to Diabetes - Not met Interventions: Complete Testing as Directed by Providers - Not done Keep Follow Up Appointments as Sceduled with Providers - Not done Review Educational Material - Not done Take Medications as Prescribed - Not done Your Care Team Attending Physician - Kristofer SCHUSTER, Haider Bee Primary Care Physician - Nanette Do This Is Your Medications List [facility] Prescription (Handicap Placlizzie, 5 years.) acarbose (acarbose 25 mg oral tablet) aspirin (aspirin 81 mg Oral EC Tab) buPROPion (buPROPion 300 mg/24 hours ER Tab) calcium carbonate (calcium (as carbonate) 600 mg oral tablet) carvedilol (carvedilol 6.25 mg Tab) cyclobenzaprine (cyclobenzaprine 10 mg Tab) insulin aspart (NovoLog) losartan (losartan 50 mg Tab) nitroglycerin (nitroglycerin 0.4 mg sublingual Tab) omega-3 polyunsaturated fatty acids (Fish Oil 1200 mg oral capsule) pioglitazone (pioglitazone 30 mg Tab) potassium chloride (Potassium Chloride (Nvs-Dtfp-Ypk M20) 20 mEq oral tablet, extended release) quetiapine (SEROquel 50 mg ER Tab) resmetirom (Rezdiffra 100 mg oral tablet) simvastatin (simvastatin 20 mg Tab) simvastatin (simvastatin 40 mg Tab) sitagliptin (Januvia 100 mg Tab) sodium bicarbonate (sodium bicarbonate 650 mg Tab) venlafaxine (venlafaxine 75 mg Tab) [...] Placement of stent in cardiac conduit, Stimulator. What to do next Scheduled Follow-Up Appointments Monday 10:00 AM EDT With: Nanette Do Where: [address] [address]- Monday 9:15 AM EDT With: Araceli BERMUDEZ MD Where: [facility] [address] [place] [address] 8:00 AM EDT With: Where: [address] [address]- You Need to Complete the Following HCV Antibody RFX to Quant PCR, Blood, Routine collect, 05/15/25, Order for future visit, Lab Collect, Need for hepatitis C screening test, Not Required, Print Label By Order Location Medications What How Much When Why Instructions Unchanged acarbose (acarbose 25 mg oral tablet) See instructions TAKE 2 TABLETS BY MOUTH 3 TIMES A DAY Unchanged aspirin (aspirin 81 mg Oral EC Tab) 1 Tablets By Mouth Every day Unchanged buPROPion (buPROPion 300 mg/ 24 hours ER Tab) See instructions TAKE 1 TABLET BY (more content not included)... Normal [facility] Medicine Office/Clini c Noteon 05-19-2025 Family Medicine Office/Clinic Note Family Medicine Office/Clinic Note Chief Complaint Here for his Subsequent Medicare Wellness visit Review of Systems PHQ Score Initial Depression Screen Score: 6 SCORE Detailed Depression Screen Score: 9 Total Depression Screen Score: 15 Physical Exam Vitals & Measurements HR: 74(Peripheral) RR: 18 BP: 138/76 SpO2: 98% HT: 168 cm HT: 66 in WT: 116.9 kg WT: 257.72 lb BMI: 41.42 Assessment/Plan 1. Encounter for annual wellness visit (AWV) in Medicare patient (Z00.00: Encounter for general adult medical examination without abnormal findings) Patient in office today for his Subsequent Medicare Wellness Visit. A customized and personalized print out of all the current AHRQ USPSTF???s recommendations for preventative services and all current CDC recommended immunizations, relevant risk recommendations and the following patient brochures were given. Reviewed What can I expect during my Medicare preventative care visit CDC-Falls Prevention and home safety screening reviewed, see # 10 [place] Advance Directives reviewed, has completed and on file. Patient denies any problems with ADL???s and Instrumental ADL???s. Cognitive screening completed with memory and clock face drawing. Immunization Record reviewed with the patient. RSV received 09/21/23, Shingrix vaccine series completed 07/23/20, 10/23/20. Pneumonococcal vaccines received 08/04/16, 10/26/18. Influenza vaccine was given 07/31/24. COVID vaccines have been administered x 5. Immunization record is up to date. Allergies and medications reviewed and up to date. Patient denies concerns with taking medication as prescribed, reviewed OTC medications with patient with medication list up to date. Blood tests were reviewed and up to date, Hepatitis C screening added per patient request. Colonoscopy up to date, last was, due for repeat 12/2026 Reviewed concerns with bladder control over past 6 months with no concerns. Reviewed pain symptoms with patient: see # 6 Reviewed all outside providers that patient follows. Last visit summary notes available in chart and/or have been requested. Follow up scheduled 05/20/25 AWV has been scheduled 05/21/26 Medicare provides yearly screening for alcohol concerns. This is completed during our Medicare wellness visit for those who do not have a current diagnosis of depression or concerns with alcohol use. I spent a total of 10 minutes on this date of service which included preparing to see the patient, face to face patient care, completing clinical documentation, obtaining and/or reviewing separately obtained history, counseling and educating the patient with handouts. Explanations were provided with reviewing questionnaires. AUDIT risk assessment screening completed, risk score 0 with patient denying concerns with use. Completed PHQ-2 risk assessment for depression with risk score , negative findings. Patient has been reminded to notify the provider if there would be a change or concerns with symptoms with fear, unable to sleep, worrying too much or feeling down and/or sad with lost of interest with daily activities. Will continue to monitor with screening yearly during Medicare wellness visits. 2. Obesity, morbid, BMI 40.0-49.9 (E66.01: Morbid (severe) obesity due to excess calories) A combination of diet and exercise can help you lose the weight. Discussed weight loss benefits to dietary management and overall health with increased cardiovascular risks associated with waist measurement >35 40 inches. Pt's waist measured 44.5 inches with today's visit. Reminded pt importance to work on lowering current body weight with healthy dietary intake choices with understanding of portion control. Reviewed goals and patient's readiness with needing to make a healthier lifestyle change. Will work on increasing daily activity and prevent further weight gain. The standard range for ages 18 and older is >=18.5 and < 25 kg/m2. Your BMI 41.42 today was above this range, this falls in the morbidly obese category and there are medical benefits to weight loss. BMI monitoring is helpful with identifying a weight problem that may be related to a medical condition, or may increase the risk for medical problems. Your BMI and weight management will be followed at subsequent visits with your provider and monitored for progress. GOAL: promoting healthier lifestyle with diet changes in order to reach a healthy weight. 3. BMI 40.0-44.9, adult (Z68.41: Body mass index [BMI] 40.0-44.9, adult) see above # 2 4. Type 2 diabetes mellitus with peripheral vascular disease (E11.51: Type 2 diabetes mellitus with diabetic peripheral angiopathy without gangrene) Patient is compliant on current DM medications: Actos, Januvia, Acarbose and NovoLog. Patient has Dexcom system, BS in am average around 140 and evening reading around 120. 6/5/25 HgbA1c 6.5. DM stoplight handout reviewed with s/s to monitor for and report to Endocrinology and PCP. Discussed ADA dietary recommendations with low carbs and reduce sug (more content not included)... Normal [facility] Comment on above: Result Comment: Elec tronically Signed By: DAVID ACOSTA CNP\.br\Date and Time Signed: 05/19/25 07:50 EDT\.br\Electronically Co-Signed By: Stormy Wilder LPN\.br\Date and Time Co-Signed: 05/16/25 13:59 EDT\.br\Electronically Co-Signed By: Stormy Wilder LPN\.br\Date and Time Co-Signed: 05/16/25 14:16 EDT\.br\Electronically Co-Signed By: Stormy Wilder LPN\.br\Date and Time Co-Signed: 05/16/25 14:39 EDT Ambulatory Visit Summaryon 0 04-14-2025 Ambulatory Visit Summary Ambulatory Visit Summary DONG WHITMORE :1950 Visit Date:04/14/2025 Ambulatory Visit Instructions Your Diagnosis BMI 40.0-44.9, adult Obesity, morbid, BMI 40.0-49.9 Non-smoker These Are Your Goals Symptoms of Depression will be Reduced - Not met Interventions: Learn About Triggers, Prevention and Management - Not done Learn Ways to Self-Manage Depression - Not done Learn to Recognize Signs of Depression - Not done Refer to a Behavioral Health Specialist - Not done Review Educational Material - Not done Reduce Fall Risk - Not met Interventions: Learn About Home Safety to Prevent Falls or Injury - Not done Review Educational Material - Not done Take Breaks When Needed - Not done Use Cane When Walking - Not done Manage Chronic Pain and Improve Quality of Life - Not met Interventions: Complete testing as Directed by Providers - Not done Follow up with Providers as Directed - Not done Referral for Pain Psychiatrist (prefers local, closer to home) - Not done Review Educational Material - Not done Take Medications as Prescribed - Not done Prevent Complications Related to Diabetes - Not met Interventions: Complete Testing as Directed by Providers - Not done Keep Follow Up Appointments as Sceduled with Providers - Not done Review Educational Material - Not done Take Medications as Prescribed - Not done Your Care Team Attending Physician - Nanette Do Primary Care Physician - Kristofer SCHUSTER, Haider Bee This Is Your Medications List [facility] Prescription (Eric Prather, 5 years.) acarbose (acarbose [...] 30 mg Tab) potassium chloride (Potassium Chloride (Tlo-Xnwp-Sto M20) 20 mEq oral tablet, extended release) resmetirom (Rezdiffra 100 mg oral tablet) simvastatin (simvastatin 20 mg Tab) simvastatin (simvastatin 40 mg Tab) [...] conduit, Stimulator. Discharge Vitals Temperature (Temporal Artery) 36.2 ???C Heart Rate (Peripheral) 74 Respiratory Rate 20 Blood Pressure 128/84 Height 168.0 cm Height 66 in Weight 116.9 kg Weight 257.72 lb BMI 41.42 What to do next Scheduled Follow-Up Appointments 2024 8:00 AM EDT With: Where: [address] [address]- Monday 10:00 AM EDT With: Nanette Do Where: [address] [address]- Monday 9:15 AM EDT With: LATRICIA SCHUSTER, Araceli Treadwell Where: [facility] [address], [address] [place] [address]- Medications What How Much When Why Instructions Unchanged acarbose (acarbose 25 mg oral tablet) See instructions TAKE 2 TABLETS BY MOUTH 3 TIMES A DAY Unchanged aspirin (aspirin 81 mg Oral EC [...] instructions SubCutaneous TIDAC Unchanged losartan (losartan 50 (more content not included)... Normal [facility] Family Medicine Office/Clini c Noteon 04-14-2025 Family Medicine Office/Clinic Note Family Medicine Office/Clinic Note HPI Staff Dong is a 74 year old male presenting with toe pain discuss referral to pain management Former Kristofer patient Was discharged from [place] pain management due to behaviors Toe pain: middle toe right foot, sharp stabbing pain Onset: 15 years ago, getting worse Tried: he has been told that they don't know what it is, Triazine (from pain management) He voiced his opinion and that is why he got kicked out of pain management,Conrad is looking into a different pain management, they are playing phone tag no refills needed today History of Present Illness pt presents today for follow up on toe pain. needs referral to a different pain management clinic Review of Systems PHQ Score Initial Depression Screen Score: 0 SCORE Physical Exam Vitals & Measurements T: 36.2 ???C(Temporal Artery) HR: 74(Peripheral) RR: 20 BP: 128/84 SpO2: 95% HT: 168.0 cm HT: 66 in WT: 116.9 kg WT: 257.72 lb BMI: 41.42 General: alert, no acute distress ENMT: oral mucosa moist, no pharyngeal erythema or exudate Cardiovascular: regular rate and rhythm, normal peripheral perfusion Respiratory: Lungs CTA, respirations non labored Extremities: no deformity, no trauma Neurological: oriented x 4, LOC appropriate for age, CN II-XII intact, motor strength equal & normal bilaterally, speech normal Assessment/Plan 1. Insomnia (G47.00: Insomnia, unspecified) pt was taking more than what was prescribed of tizanidine so he could sleep. this is why he was discharged from [place] [facility]. pt is looking in to psych pain management. is also thinking about going to a ketamine clinic in [place]. wants to hold off on referral to pain management at this time. will start Seroquel to take before bed to help with sleep. RTC 5 weeks Ordered: quetiapine, 50 mg = 1 tab(s), Oral, Bedtime, # 90 tab(s), Refills(s) 0, Pharmacy: [facility]/pharmacy #[id number], 168, cm, 04/14/25 10:19:00 EDT, Height/Length Dosing, 116.9, kg, 04/14/25 10:19:00 EDT, Weight Dosing 2. Chronic painful diabetic neuropathy (E11.40: Type 2 diabetes mellitus with diabetic neuropathy, unspecified) will continue tizanidine 2 tabs 4 times per day. he does not need refills at this time. he just picked it up. pt has been to podiatry, neurology, pain management and no one is able to figure out what exactly is causing this pain. pt states tramadol doesn't help either. 3. BMI 40.0-44.9, adult (Z68.41: Body mass index [BMI] 40.0-44.9, adult) BMI education given Ordered: quetiapine, 50 mg = 1 tab(s), Oral, Bedtime, # 90 tab(s), Refills(s) 0, [id number] 168, cm, 04/14/25 10:19:00 EDT, Height/Length Dosing, 116.9, kg, 04/14/25 10:19:00 EDT, Weight Dosing 4. Obesity, morbid, BMI 40.0-49.9 (E66.01: Morbid (severe) obesity due to excess calories) see above Ordered: quetiapine, 50 mg = 1 tab(s), Oral, Bedtime, # 90 tab(s), Refills(s) 0, [id number], 168, cm, 04/14/25 10:19:00 EDT, Height/Length Dosing, 116.9, kg, 04/14/25 10:19:00 EDT, Weight Dosing 5. Non-smoker (Z78.9: Other specified health status) continue not smoking Ordered: quetiapine, 50 mg = 1 tab(s), Oral, Bedtime, # 90 tab(s), Refills(s) 0, [id number], 168, cm, 04/14/25 10:19:00 EDT, Height/Length Dosing, 116.9, kg, 04/14/25 10:19:00 EDT, Weight Dosing Follow-up No qualifying data available Problem List/Past Medical History Ongoing Acquired absence of right great toe 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 Acquired absence of third toe of right foot Allergic rhinitis Anticoagulated At risk for falls Balance problem Benign hypertension with chronic kidney disease, stage III Bilateral leg pain BMI 40.0-44.9, adult BPH with obstruction/lower urinary tract symptoms Calculus of gallbladder without cholecystitis without obstruction Chronic painful diabetic neuropathy Complex renal cyst 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 Dizziness Dizziness and giddiness Erythema of skin Fatty liver GERD (gastroesophageal reflux disease) Hiatal hernia History of kidney stones Impotence Injury of right elbow Insomnia Long-term insulin use Lumbar spondylosis Lumbar stenosis Major depressive disorder, 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 Mixed hyperlipidemia SANTANA (nonalcoholic steatohepatitis) Nonsmoker OA (osteoarthritis) Obesity, morbid, BMI 40.0-49.9 ULISES (obstructive sleep apnea) Pain, foot, right, chronic Peripheral edema Psoriasis Renal mass Stage 3a chronic kidney disease Stasis ulcer Type 2 diabetes mellitus with hyperlipidemia Type 2 diabetes mellitus with peripheral vascular disease Urgency of urination Vitamin D deficiency Weakness Historical Amputation of toe of right foot Anxiety disorder BPH - benign prostatic hyperplasia Depressed mood Hyperlipidemia Neuropathy Procedure/Surgical History Percutaneous implantation of neurostimulator electrode array, epidural (more content not included)... Normal [facility] Comment on above: Result Comment: Elec tronically Signed By: Nanette Do\.cyrus\Date and Time Signed: 04/14/25 16:23 EDT MR HEAD/BRAIN WO CONon 04-08 [place] [address] Magnetic Resonance Report Signed Patient: DONG WHITMORE MR#: [id number] : 1950 Acct:[id number] Age/Sex: 74 / M ADM Date: 04/08/25 Loc: MRI Attending Dr: David Wong M.D. Ordering Physician: David Wong M.D. Date of Service: 04/08/25 Procedure(s): MR head/brain wo con Accession Number(s): [id number] cc: HAIDER HICKMAN ; David Wong M.D. [place] [address] Patient Name: DONG WHITMORE MRN: [id number] date: 1950 Sex: M Assigned Patient Location: MRI Current Patient Location: MRI Accession/Order Number: [id number] Exam Date: 04/08/2025 13:09 Report Date: 04/08/2025 13:17 At the request of: DAVID WONG MD Procedure: MR head/brain wo con EXAMINATION: MRI OF THE BRAIN WITHOUT CONTRAST CLINICAL HISTORY: Asymmetric Sensorineural Hearing Loss COMPARISON: None FINDINGS: No restricted diffusion. Mild generalized involutional changes of brain parenchyma identified with prominence of the ventricles and sulci. Mild periventricular and subcortical T2 prolongation identified suggest of chronic small vessel ischemic disease. There is subtle loss of the normal intrinsic T2 signal within the right cochlea and semicircular canals. Normal intrinsic T2 signal identified left cochlea and semicircular canals identified. CSF signal within the right IAC appears unremarkable. Left IAC CSF appears slightly intermediate possible this unclear if this is due to volume averaging as no volumetric imaging was performed. Mild predominantly right-sided paranasal sinus disease. Mastoids are clear. MR/MR head/brain wo con IMPRESSION: Examination degraded due to artifacts and lack of volumetric imaging. Questionable loss of the normal intrinsic T2 signal within the right cochlear and semicircular canal may raise possibility of chronic labyrinthitis. Intermediate signal left IAC noted could be related to volume artifact, if there is clinical concern for possible left-sided schwannoma consider postcontrast imaging. Otherwise mild chronic small vessel changes and central involutional changes. Negative acute intracranial process by MRI. Impression dictated by: Anup Kunz M.D. 04/08/2025 1:17 PM Dictation Location: [place] [address] Electronically authenticated by: [id number] Y Date: 04/08/2025 13:17 Dictated By: Anup Kunz M.D. Signed By: 04/08/25 1320 DD/ 1317 TD/TT: Cost Estimating Clerk: [facility] Radiology, Radiologist, MD - 04/08/2025 [place] [address] Magnetic Resonance Report Signed Patient: DONG WHITMORE MR#: [id number] : 1950 Acct:[id number] Age/Sex: 74 / M ADM Date: 04/08/25 Loc: MRI Attending Dr: David Wong M.D. Ordering Physician: David Wong M.D. Date of Service: 04/08/25 Procedure(s): MR head/brain wo con Accession Number(s): [id number] cc: HAIDER HICKMAN ; David Wong M.D. The [place] [address] Patient Name: DONG WHITMORE MRN: [facility]:[id number] date: 1950 Sex: M Assigned Patient Location: MRI Current Patient Location: MRI Accession/Order Number: [id number] Exam Date: 04/08/2025 13:09 Report Date: 04/08/2025 13:17 At the request of: DAVID WONG MD Procedure: MR head/brain wo con EXAMINATION: MRI OF THE BRAIN WITHOUT CONTRAST CLINICAL HISTORY: Asymmetric Sensorineural Hearing Loss COMPARISON: None FINDINGS: No restricted diffusion. Mild generalized involutional changes of brain parenchyma identified with prominence of the ventricles and sulci. Mild periventricular and subcortical T2 prolongation identified suggest of chronic small vessel ischemic disease. There is subtle loss of the normal intrinsic T2 signal within the right cochlea and semicircular canals. Normal intrinsic T2 signal identified left cochlea and semicircular canals identified. CSF signal within the right IAC appears unremarkable. Left IAC CSF appears slightly intermediate possible this unclear if this is due to volume averaging as no volumetric imaging was performed. Mild predominantly right-sided paranasal sinus disease. Mastoids are clear. MR/MR head/brain wo con IMPRESSION: Examination degraded due to artifacts and lack of volumetric imaging. Questionable loss of the normal intrinsic T2 signal within the right cochlear and semicircular canal may raise possibility of chronic labyrinthitis. Intermediate signal left IAC noted could be related to volume artifact, if there is clinical concern for possible left-sided schwannoma consider postcontrast imaging. Otherwise mild chronic small vessel changes and central involutional changes. Negative acute intracranial process by MRI. Impression dictated by: Anup Kunz M.D. 04/08/2025 1:17 PM Dictation Location: [place] [address] Electronically authenticated by: [id number] Y Date: 04/08/2025 13:17 Dictated By: Anup Kunz M.D. Signed By: 04/08/25 1320 DD/ 1317 TD/TT: Cost Estimating Clerk: [facility] Radiology Study observation (narrative) [facility] MR HEAD/BRAIN WO CONOrdered By: Radiologist Radiology on 04-08-2025 [facility] Work Phone: Auditory function testson Right Ear: Mild sloping to profound sensorineural hearing loss above 250 Hz Left Ear: Mild sloping to profound sensorineural hearing loss above 1K Hz [facility] HbA1c HPLC (Bld) [Mass fract ion]Ordered By: lAdo Middleton on 03-26-2025 HbA1c (Bld) [Mass fraction] 6.1 % [facility] No Panel InformationOrdered By: Aldo Middleton on 03-26-2025 Bedside Glucose 149 [facility] US UNI ankle/arm indiceson 0 03-24-2025 US UNI ankle/arm indices [facility] [address] [place] [address] Ultrasound Report Signed Patient: Dong Whitmore MR#: [id number] : 1950 Acct:[id number] Age/Sex: 74 / M ADM Date: 03/19/25 Loc: [facility] Room: Type: [facility] Attending Dr: Eligio Soni MD Ordering Provider: Eligio Soni MD Date of Service: 03/19/25 US/US UNI ankle/arm indices: M79.604 - Pain in right leg Copies to: Eligio Soni MD LOWER EXTREMITY SEGMENTAL ARTERIAL DOPSCAN (PVR) INDICATION: New post procedure baseline study. Right lower extremity claudication. PROCEDURE: Right arm blood pressure is 130 , left is 120 . Pressures at the right ankle are 155 using the posterior tibial artery, and 138 using the dorsalis pedis artery with ankle-brachial index of 1.19 1.06 . Wave forms by plethysmography are normal. US/US UNI ankle/arm indices IMPRESSION: NO HEMODYNAMICALLY SIGNIFICANT PERIPHERAL VASCULAR OCCLUSIVE DISEASE AT REST IN THE RIGHT LOWER EXTREMITY. Impression dictated by: Eligio Soni MD,FACS,FSVS 03/24/2025 9:53 AM [facility]ictation [facility] Tech: Roya Harvey Transcribed By: CIRO 03/24/25 0953 Dictated By: Eligio Soni MD 03/24/25 0953 Signed By: 03/24/25 0953 Normal [facility] Office Visiton 03-20-2025 Follow-up visit [id number] Dong Whitmore 1950 M Date Provider Department Center 03/20/2025 [facility] Family History Problem Relation Age of Onset Coronary artery disease Other Diabetes Other Family Status - Relation Status Age at Mother Father Other Level of Service:[address] [place] OFFICE/OUTPATIENT ESTABLISHED MOD MDM 30 MIN Normal [facility] ED [facility] 03-14-2025 [facility] ED [facility] Chronic Pain, Adult Chronic pain is a type of pain that lasts or keeps coming back for at least 3?6 months. You may have headaches, pain in the abdomen, or pain in other areas of the body. Chronic pain may be related to an illness, injury, or a health condition. Sometimes, the cause of chronic pain is not known. Chronic pain can make it hard for you to do daily activities. If it is not treated, chronic pain can lead to anxiety and depression. Treatment depends on the cause of your pain and how severe it is. You may need to work with a pain specialist to come up with a treatment plan. Many people benefit from two or more types of treatment to control their pain. Follow these instructions at home: Treatment plan Follow your treatment plan as told by your health care provider. This may include: ??? Gentle, regular exercise. ??? Eating a healthy diet that includes foods such as vegetables, fruits, fish, and lean meats. ??? Mental health therapy (cognitive or behavioral therapy) that changes the way you think or act in response to the pain. This may help improve how you feel. ??? Doing physical therapy exercises to improve movement and strength. ??? Meditation, yoga, acupuncture, or massage therapy. ??? Using the oils from plants in your environment or on your skin (aromatherapy). Other treatments may include: ??? Eute-qpl-zhgciyl or prescription medicines. ??? Color, light, or sound therapy. ??? Local electrical stimulation. The electrical pulses help to relieve pain by temporarily stopping the nerve impulses that cause you to feel pain. ??? Injections. These deliver numbing or pain-relieving medicines into the spine or the area of pain. Medicines ??? Take auti-tlz-rwktsjj and prescription medicines only as told by your health care provider. ??? Ask your health care provider if the medicine prescribed to you: ? Requires you to avoid driving or using machinery. ? Can cause constipation. You may need to take these actions to prevent or treat constipation: ? Drink enough fluid to keep your urine pale yellow. ? Take acmb-jlo-qbxzzxh or prescription medicines. ? Eat foods that are high in fiber, such as beans, whole grains, and fresh fruits and vegetables. ? Limit foods that are high in fat and processed sugars, such as fried or sweet foods. Lifestyle ??? Ask your health care provider whether you should keep a pain diary. Your health care provider will tell you what information to write in the diary. This may include: ? When you have pain. ? What the pain feels like. ? How medicines and other behaviors or treatments help to reduce the pain. ??? Consider talking with a mental health care provider about how to help manage chronic pain. ??? Consider joining a chronic pain support group. ??? Try to control or lower your stress levels. Talk with your health care provider about ways to do this. General instructions ??? Learn as much as you can about how to manage your chronic pain. Ask your health care provider if an intensive pain rehabilitation program or a chronic pain specialist would be helpful. ??? Check your pain level as told by your health care provider. Ask your health care provider if you should use a pain scale. Contact a health care provider if: ??? Your pain is not controlled with treatment. ??? You have new pain. ??? You have side effects from pain medicine. ??? You feel weak or you have trouble doing your normal activities. ??? You have trouble sleeping or you develop confusion. ??? You lose feeling or have numbness in your body. ??? You lose control of your bowels or bladder. Get help right away if: ??? Your pain suddenly gets much worse. ??? You develop chest pain. ??? You have trouble breathing or shortness of breath. ??? You faint, or another person sees you faint. These symptoms may be an emergency. Get help right away. Call 911. ??? Do not wait to see if the symptoms will go away. ??? Do not drive yourself to the hospital. Also, get help right away if: ??? You have thoughts about hurting yourself or others. Take one of these steps if you feel like you may hurt yourself or others, or have thoughts about taking your own life: ??? Go to your nearest emergency room. ??? Call 911. ??? Call the National Suicide Prevention Lifeline at or 557. This is open 24 hours a day. ??? Text the Crisis Text Line at 210557. This information is not intended to replace advice given to you by your health care provider. Make sure you discuss any questions you have with your health care provider. Document Revised: 05/17/2023 Document Reviewed: 04/19/2023 [employer] Patient Education ? 2023 [employer] Normal [facility] CBC w/ Auto Diffon 5 Basophil Absolute 0.0 E9/L Normal 0.0-0.2 [facility] Comment on above: Performed By: #### 2 [id number] #### [facility] [address] [place] [address] Basophils/100 WBC (Bld) 0.4 % Normal 0.0-2.0 [facility] Comment on above: Performed By: #### 2 [id number] #### [facility] [address] [place] [address] Eos Absolute 0.3 E9/L Normal 0.0-0.5 [facility] Comment on above: Performed By: #### 2 [id number] #### [facility] [address] [place] [address] Eosinophils/100 WBC (Bld) 3.6 % Normal 0.0-8.0 [facility] Comment on above: Performed By: #### 2 [id number] #### [facility] [address] [place] [address] Erythrocyte distribution width (RBC) [Ratio] 14.9 % High 10.9-14.2 [facility] Comment on above: Performed By: #### 2 [id number] #### [facility] [address] [place] [address] Hematocrit (Bld) [Volume fraction] 38.9 % Normal 37.7-49.0 [facility] Comment on above: Performed By: #### 2 [id number] #### [facility] [address] [place] [address] Hemoglobin (Bld) [Mass/Vol] 13.2 g/dL Low 13.5-17.5 [facility] Comment on above: Performed By: #### 2 [id number] #### [facility] [address] [place] [address] Lymph Absolute 1.3 E9/L Normal 1.0-4.0 [facility] Comment on above: Performed By: #### 2 [id number] #### [facility] [address] [place] [address] Lymphocytes/100 WBC (Bld) 16.0 % Normal 14.0-50.0 [facility] Comment on above: Performed By: #### 2 [id number] #### [facility] [address] [place] [address] MCH (RBC) [Entitic mass] 28.1 pg Normal 27.0-34.0 [facility] Comment on above: Performed By: #### 2 [id number] #### [facility] [address] [place] [address] MCHC (RBC) [Mass/Vol] 33.8 g/dL Normal 31.4-36.0 [facility] Comment on above: Performed By: #### 2 [id number] #### [facility] [address] [place] [address] MCV (RBC) [Entitic vol] 83.2 fL Normal 80.0-100.0 [facility] Comment on above: Performed By: #### 2 [id number] #### [facility] [address] [place] [address] [place] Absolute 0.5 E9/L Normal 0.2-1.0 [facility] Comment on above: Performed By: #### 2 [id number] #### [facility] [address] [place] [address] Monocytes/100 WBC (Bld) 6.7 % Normal 4.0-14.0 [facility] Comment on above: Performed By: #### 2 [id number] #### [facility] [address] [place] [address] Neutro Absolute 5.8 E9/L Normal 2.0-7.5 [facility] Comment on above: Performed By: #### 2 [id number] #### [facility] [address] [place] [address] Neutro Auto 73.3 % Normal 36.0-75.0 [facility] Comment on above: Performed By: #### 2 [id number] #### [facility] [address] [place] [address] Platelet 216.0 E9/L Normal 150.0-500.0 [facility] Comment on above: Performed By: #### 2 [id number] #### [facility] [address] [place] [address] Platelet mean volume (Bld) [Entitic vol] 8.8 fL Normal 6.4-10.8 [facility] Comment on above: Performed By: #### 2 [id number] #### [facility] [address] [place] [address] RBC 4.7 E12/L Normal 4.3-5.9 [facility] Comment on above: Performed By: #### 2 [id number] #### [facility] [address] [place] [address] WBC 7.9 E9/L Normal 4.0-11.0 [facility] Comment on above: Performed By: #### 2 137054 #### [facility] [address] [place] [address] CMPon 03-13-2025 Albumin [Mass/Vol] 4.2 g/dL Normal 3.3-5.0 [facility] Comment on above: Performed By: #### 2 [id number] #### [facility] [address] [place] [address] Albumin/Globulin [Mass ratio] 1.6 {ratio} Normal 1.1-2.2 [facility] Comment on above: Performed By: #### 2 [id number] #### [facility] [address] [place] [address] Alk Phos 86 Int._Unit/L Normal 21-98 [facility] Comment on above: Performed By: #### 2 [id number] #### [facility] [address] [place] [address] ALT 33 Int._Unit/L Normal 6-46 [facility] Comment on above: Performed By: #### 2 [id number] #### [facility] [address] [place] [address] Anion gap [Moles/Vol] 13 mmol/L Normal 6-16 [facility] Comment on above: Performed By: #### 2 [id number] #### [facility] [address] [place] [address] AST 29 Int._Unit/L Normal 5-43 [facility] Comment on above: Performed By: #### 2 [id number] #### [facility] [address] [place] [address] Bili Total 0.5 mg/dL Normal 0.0-1.1 [facility] Comment on above: Performed By: #### 2 [id number] #### [facility] [address] [place] [address] BUN/Creat Ratio 22 No Units High 10-20 [facility] Comment on above: Performed By: #### 2 545572 #### [facility] [address] [place] [address] Calcium [Mass/Vol] 9.4 mg/dL Normal 8.9-11.1 [facility] Comment on above: Performed By: #### 2 400038 #### [facility] [address] [place] [address] Chloride [Moles/Vol] 105 mmol/L Normal 101-111 [facility] Comment on above: Performed By: #### 2 927299 #### [facility] [address] [place] [address] CO2 [Moles/Vol] 23 mmol/L Normal 21-31 [facility] Comment on above: Performed By: #### 2 [id number] #### [facility] [address] [place] [address] Creatinine [Mass/Vol] 1.2 mg/dL Normal 0.5-1.3 [facility] Comment on above: Performed By: #### 2 [id number] #### [facility] [address] [place] [address] Globulin (S) [Mass/Vol] 2.7 g/dL Normal 1.4-4.0 [facility] Comment on above: Performed By: #### 2 [id number] #### [facility] [address] [place] [address] Glucose [Mass/Vol] 121 mg/dL Normal 55-199 [facility] Comment on above: Performed By: #### 2 [id number] #### [facility] [address] [place] [address] Potassium [Moles/Vol] 4.0 mmol/L Normal 3.5-5.3 [facility] Comment on above: Performed By: #### 2 150186 #### [facility] [address] [place] [address] Protein [Mass/Vol] 6.9 g/dL Normal 6.0-7.8 [facility] Comment on above: Performed By: #### 2 972175 #### [facility] [address] [place] [address] Sodium [Moles/Vol] 137 mmol/L Normal 135-145 [facility] Comment on above: Performed By: #### 2 741414 #### [facility] [address] [place] [address] Urea nitrogen [Mass/Vol] 26 mg/dL High 5-21 [facility] Comment on above: Performed By: #### 2 116219 #### [facility] [address] [place] [address] [id number] 03-13-2025 HbA1c (Bld) [Mass fraction] 6.5 % High <=5.9 [facility] Comment on above: Performed By: #### 7 [id number] #### [facility] [address] [place] [address] Lipid Panelon 03-13-2025 Cholesterol [Mass/Vol] 127 mg/dL Normal 120-200 [facility] Comment on above: Performed By: #### 2 106939 #### [facility] [address] [place] [address] Cholesterol in HDL [Mass/Vol] 37 mg/dL Invalid Interpretation Code [facility] Comment on above: Result Comment: '>= 60 LOW RISK' '<= 40 HIGH RISK' Performed By: #### 2 [id number] #### [facility] [address] [place] [address] Cholesterol in LDL [Mass/Vol] 62 mg/dL Normal <=129 [facility] Comment on above: Performed By: #### 2 736351 #### [facility] [address] [place] [address] Cholesterol in VLDL [Mass/Vol] 43 mg/dL High 7-40 [facility] Comment on above: Performed By: #### 2 645851 #### [facility] [address] [place] [address] Triglyceride [Mass/Vol] 213 mg/dL High <=149 [facility] Comment on above: Performed By: #### 2 304657 #### [facility] [address] [place] [address] U MA/Cr Ratioon 03-13-2025 Microalb/Cr Ratio 32.8 mg/gm Cr High .0-30.0 [facility] Comment on above: Result Comment: 30-3 00 mg/g Cr indicates an increased risk for diabetic nephropathy. >300 mg/g Cr is consistent with clinical nephropathy. Performed By: #### 1 [id number] #### [facility] [address] [place] [address] U Creatinine 122.0 mg/dL Invalid Interpretation Code [facility] Comment on above: Performed By: #### 1 [id number] #### [facility] [address] [place] [address] U Microalb 4.0 mg/dL High 0.0-1.9 [facility] Comment on above: Performed By: #### 1 [id number] #### [facility] [address] [place] [address] X-ray reportOrdered By: Jairo Castano on 03-13-2025 Study report [facility] [address] [place] [address] XRay Report Signed Patient: Dong Whitmore MR#: [id number] : 1950 Acct:[id number] Age/Sex: 74 / M ADM Date: 5 Loc: XD Room: Type: [facility] Attending Dr: Marce Bowen APRN Copies to: Marce Bowen APRN~ Ordering Provider: Marce Bowen APRN Date of Service: 03/13/25 XR/XR lumbar spine 6V w bending: M79.604 - Pain in right leg 6 views Lumbar Spinewith bending HISTORY: Back pain. Right middle toe pain. Couple months duration COMPARISON: None POSTSURGICAL CHANGES: None BONY ALIGNMENT: Straightening of lumbar lordosis. Mild scoliosis. HYPERMOBILITY:No hypermobility LISTHESIS:Mild multilevel degenerative listhesis. Mild to moderate mid lumbar degenerative lateral listhesis FRACTURE: None DEGENERATIVE CHANGES: Extensive multilevel spondylosis and facet degeneration. SOFT TISSUES: Atherosclerosis BONY MINERALIZATION:[place] te XR/XR lumbar spine 6V w bending IMPRESSION: No hypermobility. Multilevel degenerative listhesis and extensive spondylosis and facet degeneration. Impression dictated by: Mert Castano M.D. 03/13/2025 5:49 PM Dictation Location: [place] [address] Transcribed By: [facility] 03/13/251748 Dictated By: Mert Castano DO 03/13/251747 Signed By: 03/13/25 174 [facility] XR lumbar spine 6V w bending on 03-13-2025 XR lumbar spine 6V w bending [facility] [address] [place] [id number] XRay Report Signed Patient: Dong Whitmore MR#: [id number] : 1950 Acct:[id number] Age/Sex: 74 / M ADM Date: 03/13/25 Loc: XD Room: Type: [facility] CL Attending Dr: Marce Bowen APRN Copies to: Marce Bowen APRN Ordering Provider: Marce Bowen APRN Date of Service: 03/13/25 XR/XR lumbar spine 6V w bending: M79.604 - Pain in right leg 6 views Lumbar Spinewith bending HISTORY: Back pain. Right middle toe pain. Couple months duration COMPARISON: None POSTSURGICAL CHANGES: None BONY ALIGNMENT: Straightening of lumbar lordosis. Mild scoliosis. HYPERMOBILITY:No hypermobility LISTHESIS:Mild multilevel degenerative listhesis. Mild to moderate mid lumbar degenerative lateral listhesis FRACTURE: None DEGENERATIVE CHANGES: Extensive multilevel spondylosis and facet degeneration. SOFT TISSUES: Atherosclerosis BONY MINERALIZATION:[place] te XR/XR lumbar spine 6V w bending IMPRESSION: No hypermobility. Multilevel degenerative listhesis and extensive spondylosis and facet degeneration. Impression dictated by: Mert Castano M.D. 03/13/2025 5:49 PM Dictation Location: [place] [address] Transcribed By: [facility] 03/13/25 174 Dictated By: Mert Castano DO 03/13/25 174 Signed By: 03/13/251748 Normal [facility] eGFRon 03-13-2025 eGFR 63 mL/min/1.73 m2 Normal >=59 [facility] Comment on above: Performed By: #### 1 [id number] #### [facility] [address] [place] [id number] [facility] 03-12-20 [facility] Case Information Case Priority: None Programs: -- Referral Source: Addressograph Operator Referral Reason: Disease management Case Type: Chronic Care Management Risk Score: -- Case Status: Active (March 11, 2025) Date Assigned: February 24, 2025 Assigned By: Conrad Yoon Date Enrolled: March 11, 2025 Assigned Primary Personnel: Conrad Yoon Assigned Secondary Personnel: -- Case Physician: Haider Hickman MD Problems Ongoing Acquired absence of right great toe 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 Acquired absence of third toe of right foot Allergic rhinitis Anticoagulated At risk for falls Balance problem Benign hypertension with chronic kidney disease, stage III Bilateral leg pain BMI 40.0-44.9, adult BPH with obstruction/lower urinary tract symptoms Calculus of gallbladder without cholecystitis without obstruction Chronic painful diabetic neuropathy Complex renal cyst 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 Dizziness Dizziness and giddiness Erythema of skin Fatty liver GERD (gastroesophageal reflux disease) Hiatal hernia History of kidney stones Impotence Injury of right elbow Long-term insulin use Lumbar spondylosis Lumbar stenosis Major depressive disorder, 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 Mixed hyperlipidemia Morbid obesity with BMI of 40.0-44.9, adult SANTANA (nonalcoholic steatohepatitis) Nonsmoker OA (osteoarthritis) Obesity, morbid, BMI 40.0-49.9 ULISES (obstructive sleep apnea) Pain, foot, right, chronic Peripheral edema Psoriasis Renal mass Stage 3a chronic kidney [...] Placement of stent in cardiac conduit, Stimulator. Home Medications acarbose 25 mg oral tablet, See Instructions aspirin 81 mg Oral EC Tab, 81 mg= 1 tab(s), Oral, Daily buPROPion 300 mg/24 hours ER Tab, See Instructions, 3 refills calcium (as carbonate) 600 mg oral tablet, 600 mg= 1 tab(s), Oral, Daily carvedilol 6.25 mg Tab Fish Oil 1200 mg oral capsule, 1200 mg= 1 cap(s), Oral, Daily Handicap Placard, 5 years., See Instructions Januvia 100 mg Tab, See Instructions, 1 refills losartan 50 mg Tab, See Instructions, 4 refills nitroglycerin 0.4 mg sublingual Tab, 0.4 mg= 1 tab(s), SubLingual, q5min, PRN NovoLog, See Instructions pioglitazone 30 mg Tab, 30 mg= 1 tab(s), Oral, Daily Potassium Chloride (Bee-Vdsp-Xpc M20) 20 mEq oral tablet, extended release, 20 mEq= 1 tab(s), Oral, Daily simvastatin 20 mg Tab, 20 mg= 1 tab(s), Oral, qPM, 3 refills simvastatin 40 mg Tab, See Instructions, 1 refills sodium bicarbonate 650 mg Tab, 1300 mg= 2 tab(s), Oral, TID, 3 refills tiZANidine 4 mg Tab, 4 mg, Oral, q8hr, 1 refills venlafaxine 75 mg Tab, See Instructions, 1 refills Allergies Cefuroxime Axetil (Uncontrollable vomiting) CeleBREX (intolerance, unknown) Clinoril (intolerance, coughing) Dolobid (intolerance) NSAIDs (intolerance, unknown) Naprosyn (intolerance, Unknown) Trulicity (intolerance) Victoza (intolerance) Vioxx (intolerance, Unknown cause) cephalosporins (Unknown) metFORMIN (intolerance) niacin (Hot flashes) Social History Alcohol - No Risk, 06/19/2019 Never., 08/14/2024 Household alcohol concerns: No., 05/10/2023 Substance Abuse - Denies Substance Abuse, 12/02/2015 Never., 08/14/2024 Tobacco - Denies Tobacco Use, 12/02/2015 Never (less than 100 in lifetime) Tobacco Use:. Never Smokeless Tobacco Use:. Household tobacco concerns: No. Yes, 03/06/2025 Family History Diabetes mellitus type 1: Father. Hypertension: Father. Multiple sclerosis (more content not included)... Normal [facility] Population Health Population Health Problems Ongoing Acquired absence of right great toe 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 Acquired absence of third toe of right foot Allergic rhinitis Anticoagulated At risk for falls Balance problem Benign hypertension with chronic kidney disease, stage III Bilateral leg pain BMI 40.0-44.9, adult BPH with obstruction/lower urinary tract symptoms Calculus of gallbladder without cholecystitis without obstruction Chronic painful diabetic neuropathy Complex renal cyst 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 Dizziness Dizziness and giddiness Erythema of skin Fatty liver GERD (gastroesophageal reflux disease) Hiatal hernia History of kidney stones Impotence Injury of right elbow Long-term insulin use Lumbar spondylosis Lumbar stenosis Major depressive disorder, 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 Mixed hyperlipidemia Morbid obesity with BMI of 40.0-44.9, adult SANTANA (nonalcoholic steatohepatitis) Nonsmoker OA (osteoarthritis) Obesity, morbid, BMI 40.0-49.9 ULISES (obstructive sleep apnea) Pain, foot, right, chronic Peripheral edema Psoriasis Renal mass Stage 3a chronic kidney [...] Placement of stent in cardiac conduit, Stimulator. Medication List acarbose 25 mg oral tablet, See Instructions aspirin 81 mg Oral EC Tab, 81 mg= 1 tab(s), Oral, Daily buPROPion 300 mg/24 hours ER Tab, See Instructions, 3 refills calcium (as carbonate) 600 mg oral tablet, 600 mg= 1 tab(s), Oral, Daily carvedilol 6.25 mg Tab Fish Oil 1200 mg oral capsule, 1200 mg= 1 cap(s), Oral, Daily Handicap Placard, 5 years., See Instructions Januvia 100 mg Tab, See Instructions, 1 refills losartan 50 mg Tab, See Instructions, 4 refills nitroglycerin 0.4 mg sublingual Tab, 0.4 mg= 1 tab(s), SubLingual, q5min, PRN NovoLog, See Instructions pioglitazone 30 mg Tab, 30 mg= 1 tab(s), Oral, Daily Potassium Chloride (Bdh-Ncvb-Hll M20) 20 mEq oral tablet, extended release, 20 mEq= 1 tab(s), Oral, Daily simvastatin 20 mg Tab, 20 mg= 1 tab(s), Oral, qPM, 3 refills simvastatin 40 mg Tab, See Instructions, 1 refills sodium bicarbonate 650 mg Tab, 1300 mg= 2 tab(s), Oral, TID, 3 refills tiZANidine 4 mg Tab, 4 mg, Oral, q8hr, 1 refills venlafaxine 75 mg Tab, See Instructions, 1 refills Allergies Cefuroxime Axetil (Uncontrollable vomiting) CeleBREX (intolerance, unknown) Clinoril (intolerance, coughing) Dolobid (intolerance) NSAIDs (intolerance, unknown) Naprosyn (intolerance, Unknown) Trulicity (intolerance) Victoza (intolerance) Vioxx (intolerance, Unknown cause) cephalosporins (Unknown) metFORMIN (intolerance) niacin (Hot flashes) Goals and Interventions Care Plan Goal: Symptoms of Depression will be Reduced Start Date: 2024 Target: - - Status: Not met Barriers: - - Comments: - - Intervention Frequency Status Oxygen Therapy Teacher Learn About Triggers, Prevention and Management - - Not done - - Learn to Recognize Signs of Depression - - Not done - - Learn Ways to Self-Manage Depression - - Not done - - Refer to a Behavioral Health Specialist - - Not done - - Review Educational Material - - Not done - - Goal: Reduce Fall Risk Start Date: 2024 Target: - - Status: Not met Barriers: - - Comments: - - Intervention Frequency Status Oxygen Therapy Teacher Learn About Home Safety to Prevent Falls or Injury - - Not done - - Review Educational Material - - Not done - - Use Cane When Walking - - Not done - - Take Breaks When Needed - - Not done - - Go (more content not included)... Normal [facility] Ambulatory Visit Summaryon 0 03-06-2025 Ambulatory Visit Summary Ambulatory Visit Summary CHRISETHEL DONG A :1950 Visit Date:03/06/2025 Ambulatory Visit Instructions Your Diagnosis Fatty liver [...] 30 mg Tab) potassium chloride (Potassium Chloride (Prn-Ujxz-Bdd M20) 20 mEq oral tablet, extended release) simvastatin (simvastatin 20 mg Tab) simvastatin (simvastatin 40 mg Tab) [...] conduit, Stimulator. Discharge Vitals Heart Rate (Peripheral) 76 Respiratory Rate 18 Blood Pressure 142/60 Height 168 cm Height 66 in Weight 116 kg Weight 255.736 lb BMI 41.1 What to do next Scheduled Follow-Up Appointments 2024 8:40 AM EDT With: Where: [address] [address]- 2024 8:00 AM EDT With: Where: [address] [address]- Monday 9:15 AM EDT With: LATRICIA SCHUSTER, Araceli Treadwell Where: [facility] [address] [place] [address]- You Need to Schedule the Following Appointments Follow Up with Candace SCHUSTER, YFN Hatch, [facility] When: In 6 months Where: [address], [address] [address] [phone] Medications What How Much When Why Instructions Unchanged acarbose (acarbose 25 mg oral tablet) See instructions TAKE 2 TABLETS BY MOUTH 3 TIMES A DAY Contact prescribing physician if questions or [...] stenosis Peripheral edema Handicap Placlizzie, 5 years. Contact prescribing physician if questions or concerns Unchanged nitroglycerin (nitroglycerin 0 (more content not included)... Normal [facility] Gastroenterology Office/Clin ic Noteon 03-06-2025 Gastroenterology Office/Clinic Note Gastroenterology Office/Clinic Note Chief Complaint Wants to discuss Rezdiffra before taking. Concerned to take d/t gallstones on recent CT scan. HPI Staff Established patient is a(n) 74 year old male who presents today to discuss Rezdiffra. Pt's came to office stating, after pt was prescribed the Rezdiffra pt had a CT scan that showed gallstones and states she read that Rezdiffra should not be taken with any gallbladder problems, so they requested an appt to discuss with Dr. Maria. Has not received or started the Rezdiffra. Any blood thinners? aspirin 81mg daily Any GLP-1 agonists? no CT 02/04/25: IMPRESSION: CHOLELITHIASIS. SIGMOID DIVERTICULOSIS. DEGENERATIVE CHANGE LOWER THORACIC AND LUMBAR SPINE. CT OF THE ABDOMEN AND PELVIS, WITH INTRAVENOUS CONTRAST MEDIUM. Laboratory Results CMP A/G Ratio: 1.7 (09/09/24) AGAP: 12 mEq/L (09/09/24) Albumin Lvl: 4.3 gm/dL (09/09/24) Alk Phos: 73 Int._Unit/L (09/09/24) ALT: 23 Int._Unit/L (09/09/24) AST: 25 Int._Unit/L (09/09/24) Bili Total: 0.5 mg/dL (09/09/24) BUN: 28 mg/dL High (09/09/24) BUN/Creat Ratio: 22 High (09/09/24) Calcium Lvl: 9.2 mg/dL (09/09/24) Chloride: 108 mmol/L (09/09/24) CO2: 26 mmol/L (09/09/24) Creatinine: 1.3 mg/dL (02/04/25) Globulin: 2.5 gm/dL (09/09/24) Glucose Lvl: 137 mg/dL (09/09/24) Potassium Lvl: 4.7 mmol/L (09/09/24) Sodium Lvl: 141 mmol/L (09/09/24) Total Protein: 6.8 gm/dL (09/09/24) History of Present Illness Reviewed HPI collected by staff Review of Systems PHQ Score Initial Depression Screen Score: 0 SCORE All systems reviewed, negative; Except for above Physical Exam Vitals & Measurements HR: 76(Peripheral) RR: 18 BP: 142/60 HT: 168 cm HT: 66 in WT: 116 kg WT: 255.736 lb BMI: 41.1 No acute distress Assessment/Plan 1. Fatty liver (K76.0: Fatty (change of) liver, not elsewhere classified) Seen on US 11/02 Denies alcohol use Denies Fhx of liver disease Has diabetes, controlled, last A1C reportedly 6.4 FibroScan attempted, unable to obtain d/t body habitus. ELF results 11/2024 suggestive of moderate fibrosis, 11 Rezdiffra prescribed at last visit, he did not start it yet, concerned about possible side effects. Discussed treatment in depth with patient and his . Discussed benefits vs risks of taking medication. Plan - Emphasized the importance of weight loss and recommended the Mediterranean diet as well as green Mediterranean diet - Avoid alcohol - Advised 10% weight loss - Regular exercise - Patient will think about Rezdifra, will call back if he decides to move forward with it - Advised to decrease simvastatin to 20mg if he does start Rezdiffra Rezdiffra (Resmetirom) : currently approved for SANTANA with F2-F3: Dose: dosing is going to be 80mg for <100kg (220lbs) 100mg for >100kg (220lbs) Decrease by 20mg if on Clopidogrel, if <100kg then they would decrease to 60mg Side effects: Most common side effects: usually GI related (diarrhea, constipation, nausea ...) treated symptomatically if tolerated Renal Dosing: No dose adjustment for mild-moderate renal impairment Not studied for severe renal impairment Drug interactions: Rezdiffra is CYP2C8 substrate: -Strong CYP2C8 inhibitors use (like gemfibrozil ) is not recommended -Moderate CYP2C8 inhibitor (like Clopidogrel) --> decrease Rezdiffra to 80 mg daily Cyclosporine is also not recommended Statins: -limit rosuvastatin and simvastatin dose to 20 mg daily -Limit atorvastatin and pravastatin dose to 40 mg daily Therapy monitoring -Repeat CBC and CMP in 4 weeks, consider then interval monitoring for labs, case by case -Monitor for drug reactions as tolerated -Consider Fibroscan (+/- Fibrosure) in 1 year of initiating therapy Length of therapy: -FPC, more data will be available in the future to help guide therapy 2. Calculus of gallbladder without cholecystitis without obstruction (K80.20: Calculus of gallbladder without cholecystitis without obstruction) Seen on US 11/02 3. GERD (gastroesophageal reflux disease) (K21.9: Gastro-esophageal reflux disease without esophagitis) I, Helena Gomez, personally scribed for Tomi Maria on 03/06/2025 13:05:51. . We had a long discussion about the safety profile and the benefit and the risk of Riemmaffra, All questions and concerns were addressed, he will think about it and give us a call within a week Follow-up With When Contact Information Candace SCHUSTER, Tomi Sheffield, YFN, MED In 6 months [address] [facility], [address] [address] [phone] Additional Instructions: Problem List/Past Medical History Ongoing Acquired absence of right great toe 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 Acquired absence of third toe of right foot Allergic rhinitis Anticoagulated Balance problem Benign hypertension with chronic kidney disease, stage III Bilater (more content not included)... Normal [facility] Comment on above: Result Comment: Elec tronically Signed By: Candace SCHUSTER, Tomi Sheffield\.br\Date and Time Signed: 03/06/25 13:18 EDT\.br\Electronically Co-Signed By: Helnea Gomez MA\.br\Date and Time Co-Signed: 03/06/25 13:17 EDT Ambulatory Visit Summaryon 0 02-18-2025 Ambulatory Visit Summary Ambulatory Visit Summary CHRISETHEL DONG Boom :1950 Visit Date:02/18/2025 Ambulatory Visit Instructions Your Diagnosis 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 Type 2 diabetes mellitus with hyperlipidemia Pain in right toe(s) Calculus of gallbladder without cholecystitis without obstruction Diverticulosis of intestine, part unspecified, without perforation or abscess without bleeding SANTANA (nonalcoholic steatohepatitis) Hyperlipidemia, unspecified Your Care Team Attending Physician - Haider Hickman MD Primary Care Physician - Haider Hickman MD This Is Your Medications List [facility] Prescription (Eric Prather, 5 years.) acarbose (acarbose [...] 30 mg Tab) potassium chloride (Potassium Chloride (Cgb-Wttj-Vug M20) 20 mEq oral tablet, extended release) simvastatin (simvastatin 20 mg Tab) simvastatin (simvastatin 40 mg Tab) [...] cardiac conduit, Stimulator. Discharge Vitals Temperature (Oral) 36.2 ???C Heart Rate (Peripheral) 76 Respiratory Rate 18 Blood Pressure 116/68 Height 168.0 cm Height 66 in Weight 117.2 kg Weight 258.381 lb BMI 41.52 What to do next Scheduled Follow-Up Appointments 2024 8:40 AM EDT With: Where: [address] [address] 2024 8:00 AM EDT With: Where: 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 Type 2 diabetes mellitus with hyperlipidemia, Not Required, Print Label By Order Location Comprehensive Metabolic Panel, Blood, Routine collect, 02/18/25, Order for future visit, Lab Collect, 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 Type 2 diabetes mellitus with hyperlipidemia, Not Required, Print Label By Order Location HgbA1c, Blood, Routine collect, 02/18/25, Order for future visit, Lab Collect, 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 Type 2 diabetes mellitus with hyperlipidemia, Required & Missing, Print Label By Order Location Lipid Panel, Blood, Routine collect, 02/18/25, Order for future visit, Lab Collect, 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 Type 2 diabetes mellitus with hyperlipidemia, Required & Missing, Print Label By Order Location Microalbumin Level Urine, Urine, Routine collect, 02/18/25, Order for future visit, Nurse collect, 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 Type 2 diabetes mellitus with hyperlipidemia, Not Required, Print Label By Order Location Urine Microalbumin/Creatini ne Ratio, Urine, Routine collect, 02/18/25, Order for future visit, Nurse collect, 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 Normal [facility] Family Medicine Office/Clini c Noteon 02-18-2025 Family Medicine Office/Clinic Note Family Medicine Office/Clinic Note Chief Complaint Persistent worsening of toe pain. HPI Staff 1m follow up Re-referred to PT @ [facility]- 3 more sessions, PT said he improved a lot but patient doesn't think it has helped that much Referred to ENT- March 28 Hearing test he sees the doctor CT abd/pel & CT brain 02/04/25- in chart Pain Management consult from 02/10/25 in chart. no refills needed at this time. History of Present Illness - The patient is a 74-year-old male presenting with chronic toe pain and diabetes management. - Chronic toe pain worsening with disrupted sleep. - No significant relief from current pain management and nerve blocking medication. - Recent application of [place] patch ineffective; three-month wait for a potential second attempt. - Triazidine usage ineffective, contributing to disruptive sleep. - Prior attempts to numb toe unhelpful; suspected neuropathy involvement. - Diabetes mellitus type 2 with fluctuating glucose levels from 60 to 150 mg/dL. - Gallstones noted on CT, asymptomatic. - Diverticular disease identified as non-symptomatic. Review of Systems PHQ Score Initial Depression Screen Score: 0 SCORE Physical Exam Vitals & Measurements T: 36.2 ???C(Oral) HR: 76(Peripheral) RR: 18 BP: 116/68 SpO2: 100% HT: 66 in HT: 168.0 cm WT: 258.381 lb WT: 117.2 kg BMI: 41.52 General: alert, no acute distress ENMT: oral mucosa moist Cardiovascular: Regular rate and rhythm, normal peripheral perfusion Respiratory: Lungs clear to auscultation, respirations non labored Extremities: no deformity, no trauma Neurological: oriented x 4, level of consciousness appropriate for age, CN II-XII intact, motor strength equal & normal bilaterally, speech normal Abdomen: Soft, Non-tender, Non-distended, + Bowel sounds Assessment/Plan 1. 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 (I25.10: Atherosclerotic heart disease of gambell coronary artery without angina pectoris) - No changes in management discussed. Ordered: CBC w/ Auto Diff Comprehensive Metabolic Panel HgbA1c Lipid Panel Microalbumin Level Urine Urine Microalbumin/Creatini ne Ratio 2. Type 2 diabetes mellitus with hyperlipidemia (E11.69: Type 2 diabetes mellitus with other specified complication) - Stabilization of blood glucose was advised. Ordered: CBC w/ Auto Diff Comprehensive Metabolic Panel HgbA1c Lipid Panel Microalbumin Level Urine Urine Microalbumin/Creatini ne Ratio 3. Pain in right toe(s) (M79.674) - Explore neuropathy and ongoing pain management strategies. - Will send to Neuro Surgery as pain improved with muscle relaxers and now not helping. - Pt states pain is worse - Has seen pain management, neuro, podiatry and still no answers. 4. Calculus of gallbladder without cholecystitis without obstruction (K80.20) - No intervention unless symptomatic. 5. Diverticulosis of intestine, part unspecified, without perforation or abscess without bleeding (K57.90) - Monitor for symptoms. 6. SANTANA (nonalcoholic steatohepatitis) (K75.81: Nonalcoholic steatohepatitis (SANTANA)) - Follow up with GI on new meds. Hyperlipidemia, unspecified (E78.5: Hyperlipidemia, unspecified) - No new management changes noted in conversation. - 74-year-old male with history of type 2 diabetes mellitus presenting with chronic toe pain. - Persistent worsening of chronic toe pain. - Sleep disruption and suspected neuropathy. - Non-contributory gallstones and diverticular disease. - Blood sugar instability affecting diabetes management. During the visit, I discussed the persistent yet worsening nature of the patient's chronic toe pain, which continues to disrupt sleep and daily activities. Various pain management strategies and medications have been attempted without significant relief. The patient and I reviewed potential next steps, including a referral to a neurosurgeon to evaluate for possible neuropathy originating from the back as a correlation to both toe pain and diabetes-related conditions. On a related note, we talked about the patient???s type 2 diabetes, focusing on the fluctuations in blood glucose levels and the risks associated with unrecognized hypoglycemia. It is crucial to maintain blood glucose stability and the potential introduction of continuous glucose monitoring systems was touched upon. Although gallstones and diverticular disease were observed on imaging, these conditions are being monitored with no need for intervention unless symptoms become apparent. The visit highlighted the patient???s frustration and desire for resolution, which I acknowledged while outlining the next steps to explore the untreated pain further and stabilize his diabetic control. Total time spent preparing for the encounter, evaluating and assessing the patient, documenting the visit, and ordering appropriate follow-up work was 42 minutes. Follow-up No qualifying data available Patient Education Acute Pain, Adult (more content not included)... Normal [facility] Comment on above: Result Comment: Elec tronically Signed By: Kristofer SCHUSTER, Haider Sandhu.br\Date and Time Signed: 02/18/25 14:[address] Abdomen/Pelvis w/ + [facility] Abdomen/Pelvis w/ + w/o Contrast Exam Date/Time: 02/04/2025 11:31 EDT Reason for Exam: R26.89;Pain Report IMPRESSION: CHOLELITHIASIS. SIGMOID DIVERTICULOSIS. DEGENERATIVE CHANGE LOWER THORACIC AND LUMBAR SPINE. CT OF THE ABDOMEN AND PELVIS, WITH INTRAVENOUS CONTRAST MEDIUM. HISTORY: PAIN, R26.89. ABDOMINAL PAIN. ENLARGED PROSTATE. TECHNICAL FACTORS: CT imaging of the abdomen and pelvis were obtained and formatted as 5 mm contiguous axial images from the domes of the diaphragm to the symphysis pubis. Sagittal and coronal reconstructions were also obtained. Comparison: None. Findings: Lower chest: Right iliac size normal. No pericardial effusion. No coronary artery calcification. Lung bases clear. Liver: Normal in size, shape, and attenuation. Bile Ducts: Normal in caliber. Gallbladder: Punctate calculus dependent gallbladder. No wall thickening or pericholecystic fluid. Pancreas: Normal without masses, cysts, ductal dilatation or calcification. Spleen: Normal in size without masses or calcifications. 1.6 cm splenule anterior to spleen. Kidneys: Normal in size and enhancement. No hydronephrosis, masses, or stones. Adrenals: Normal. Small bowel: Normal in caliber. Appendix: Not visualized. Colon: Normal in caliber. Diverticular change, sigmoid colon. Peritoneum: No ascites, free air, or fluid collections. Report Vessels: Aorta normal in course and caliber. Portal vein, splenic vein, superior mesenteric vein are patent. Lymph nodes: Retroperitoneal: No enlarged retroperitoneal lymph nodes. Mesenteric: No enlarged mesenteric lymph nodes. Pelvic: No enlarged pelvic lymph nodes. Ureters: Normal in course and caliber. No calcifications. Bladder: No wall thickening. Prostate: Normal in size, with transverse diameter 4.5 cm. Abdominal Wall: No hernia identified. No diastasis of rectus musculature. No edema or masses. Bones: No bone lesions. Diffuse disc space narrowing lower thoracic spine, greatest at L4-L5. Diffuse anterior osteophytes T12-L5 and posterior osteophytes L2-L5. No post operative changes. All CT scans at this facility use dose modulation, iterative reconstruction, and/or weight based dosing when appropriate to reduce radiation dose to as low as reasonably achievable. Technical Comments: GFR (mL/min/1/73m2) 57 Contrast: Isovue 300 Contrast amount in ml's: 100.00 Rectal Contrast Given? No Oral contrast amount in ml's: 900.00 Ordering Provider: Haider Hickman FINAL REPORT Dictated: 02/05/2025 10:25 am Aydin Darden MD Signed (Electronic Signature): 02/05/2025 10:25 am Signed by: Aydin Darden MD Transcribed by: GREGORIO Technologist: SELMA Normal [facility] CT Head or Brain w/o Contras ton 02-05-2025 CT Head or Brain w/o Contrast Exam Date/Time: 02/04/2025 11:26 EDT Reason for Exam: R42;Other (please specify) Report IMPRESSION: NO ACUTE INTRACRANIAL PROCESS. MILD CEREBRAL ATROPHY. CHRONIC ISCHEMIC WHITE MATTER DISEASE. CT BRAIN. CONTRAST MEDIUM: WITHOUT CONTRAST.. HISTORY: SLOWING DOWN . NO KNOWN INJURY. NO HISTORY OF CVA. TECHNICAL FACTORS: CT imaging of the brain was obtained and formatted as 5 mm contiguous axial images. 2.5 mm contiguous axial images were obtained through the osseous structures. Sagittal and coronal reconstruction obtained during postprocessing. Comparison: None. Findings: Extra-axial spaces: Normal. Intracranial hemorrhage: None. Ventricular system: Ventricles mildly enlarged with sulci mildly prominent. Basal Cisterns: Normal. Cerebral Parenchyma: Bilateral symmetric periventricular areas decreased attenuation. Midline Shift: None. Cerebellum: Normal. Paranasal sinuses and mastoid air cells: Normal. Visualized Orbits: Normal. All CT scans at this facility use dose modulation, iterative reconstruction, and/or weight based dosing when appropriate to reduce radiation dose to as low as reasonably achievable. Technical Comments: Report Ordering Provider: Haider Hickman FINAL REPORT Dictated: 02/05/2025 10:18 am Aydin Darden MD Signed (Electronic Signature): 02/05/2025 10:18 am Signed by: Aydin Darden MD Transcribed by: GREGORIO Technologist: SELMA Normal [facility] Creatinineon 02-04-2025 Creatinine [Mass/Vol] 1.3 mg/dL Normal 0.5-1.3 [facility] Comment on above: Performed By: #### [id number] #### [facility] [address] [place] [address] eGFRon 02-04-2025 eGFR 57 mL/min/1.73 m2 Low >=59 [facility] Comment on above: Performed By: #### [id number] #### [facility] [address] [place] [address] 36on 01-21-2025 36 Regarding lab result s from 12/31/2024: MD Britney Woods MA BN P is very low indicating that his shortness of breath is not related to heart failure. I noticed that he stopped Lasix. It is okay to stop it but check with him if his blood pressure is still high at home. Also order pulmonary function test if it was not done before. Spoke with patient's . He is still NOT taking lasix. She states his SOB is improving, and he only gets SOB when he hurries . I advised Mrs. Whitmore to please make our office aware of increasing SOB and/or LE edema/weight gain. She verbalized understanding. 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 Primary Care Physician - Haider Hickman MD This Is Your Medications List sitagliptin (Januvia 100 mg Tab) venlafaxine (venlafaxine 75 mg Tab) [...] 30 mg Tab) potassium chloride (Potassium Chloride (Gbg-Ldqs-Aoc M20) 20 mEq oral tablet, extended release) simvastatin (simvastatin 40 mg Tab) sodium bicarbonate (sodium bicarbonate 650 mg Tab) tizanidine (tiZANidine 4 mg Tab) Procedures Performed Percutaneous implantation of [...] Temperature (Tympanic) 36.8 ???C Heart Rate (Peripheral) 80 Respiratory Rate 20 Blood Pressure 132/76 Height 168 cm Height 66 in Weight 117 kg Weight 257.941 lb BMI 41.45 What to do next Scheduled Follow-Up Appointments Monday. 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 CT Head or Brain w/o Contrast, 01/20/25, Routine, Order for future visit, Transport Mode: Ambulatory, Reason: Other (please specify), No, No, Dizziness, Pt is having dizziness and falling. Seems to always be on the R side. Pt is concerned he may have had a stroke., pp_set_radiology... Someone Will Contact You Regarding These Appointments 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 Normal [facility] Family Medicine Office/Clini c Noteon 01-20-2025 Family Medicine Office/Clinic Note Family Medicine Office/Clinic Note Chief Complaint 3m follow up Dizziness with difficulty walking HPI Staff Pt presents today for 3m follow up Patient is here for follow up on Diabetes. How often are you checking your blood sugars? _yes What are your average readings? _140 Paresthesias, Ulcerations or sores? no Lisinopril, aspirin, statin therapy? Yes Foot Exam: Sep 2024 Eye Exam: 07/04/2024 Last A1c: Hgb A1C %: 6.5 % High (03/08/24 08:30:00) Hgb A1c POC: 6 % (12/26/23 12:06:00) Patient is here for follow up on hypertension. How often are you checking your blood pressure? _yes What are your average readings? _130/80 Yearly BMP: _ BUN: 28 mg/dL High (09/09/24 14:55:00) Calcium Lvl: 9.2 mg/dL (09/09/24 14:55:00) Chloride: 108 mmol/L (09/09/24 14:55:00) CO2: 26 mmol/L (09/09/24 14:55:00) Creatinine: 1.3 mg/dL (09/09/24 14:55:00) eGFR: 57 mL/min/1.73 m2 Low (09/09/24 14:55:00) Glucose Lvl: 137 mg/dL (09/09/24 14:55:00) Potassium Lvl: 4.7 mmol/L (09/09/24 14:55:00) Sodium Lvl: 141 mmol/L (09/09/24 14:55:00) Referred to GI for Fatty Liver. Consult completed 11/27/24. FibroScan ordered but unable to perform due to body habitus. Currently discussing possible Rexulti script. Did see Nanette Barajas [employer] 12/04/24 due to Rt elbow pain. Given Medrol Dosepak. XR ordered. Completed 12/04/24. Discussed referral to ortho. Pt had fallen again & returned to ER 12/05/24. Did see [facility] pain management 01/13/25. Still having pain in toe. 04/17. Questions/Concerns: Needs refills of Januvia & Venlafaxine. Main concern today is loss of balance & difficulty walking. History of Present Illness The patient is a 74-year-old male presenting with dizziness and balance problems that have intensified over the last several months. He is experiencing significant difficulty in independent mobility, which started approximately three months ago without an apparent cause. He previously engaged in physical therapy, which was halted due to shoulder discomfort. Concomitantly, he reports persistent tinnitus, which he attributes as a problem relevant to Meniere disease, alongside a historical buzzing in the ears that may impact hearing. He has experienced falls, including an incident resulting in a right elbow injury, already assessed by Dr. Jasmine. The patient mentions chronic right-sided weakness, linking it to his balance issues and expressing concerns about potential cerebrovascular pathology, such as a stroke, due to his symptom progression. - Continued monitoring of renal function with recent creatinine of 1.3 and GFR of 57. - Management of blood pressure with recent reading of 132/76. - Weight loss monitoring, with a noted reduction of 31 pounds since November, recommending continued dietary management. - Elimination of cookies from diet as a part of weight management. - Removal of GERD from active problem list as symptoms have resolved. - Routine follow-up for cholesterol management with simvastatin. - Non-smoker status acknowledged in lifestyle considerations. Review of Systems PHQ Score Initial Depression Screen Score: 0 SCORE Physical Exam Vitals & Measurements T: 36.8 ???C(Tympanic) HR: 80(Peripheral) RR: 20 BP: 132/76 SpO2: 98% HT: 66 in HT: 168 cm WT: 257.941 lb WT: 117 kg BMI: 41.45 General: alert, no acute distress ENMT: oral mucosa moist Cardiovascular: Regular rate and rhythm, normal peripheral perfusion Respiratory: Lungs clear to auscultation, respirations non labored Extremities: no deformity, no trauma, injury to the right elbow Neurological: oriented x 4, level of consciousness appropriate for age, CN II-XII intact, motor strength equal & normal bilaterally, speech normal, balance issues, difficulty walking Abdomen: Soft, Non-tender, Non-distended, + Bowel sounds, left-sided abdominal pain Assessment/Plan 1. Balance problem (R26.89: Other abnormalities of gait and mobility) Concerns over balance and mobility, initiating consideration for neurological evaluation to rule out stroke. Re-referral to physical therapy to address balance stabilization and safe mobilization. Ordered: Body Mass Index (BMI) documented 3008F Complex E&M Add on G2211 CT Abdomen/Pelvis w/ + w/o Contrast Current tobacco non-user 1036F Depression Screening Negative 3352F Discharge medications reconciled with current medications in outpatient record 1111F [facility] External Ambulatory Referral [facility] External Ambulatory Referral Influenza immunization status assessed 1030F Medication list documented in medical record 1159F Most recent diastolic blood pressure <80 mm Hg 3078F Patient screen for fall risk: no falls in last year or 1 fall with no injury in last year 1101F Physical Therapy Evaluation - External Facility Review of all meds by a prescribing practitioner or clinical pharmacist documented in EHR 1160F Systolic BP 130-139 mm Hg (Most Recent) 3075F 2. BPH with obstruction/lower urinary tract symptoms (N40.1: B (more content not included)... Normal [facility] Comment on above: Result Comment: Elec tronically Signed By: Kristofer SCHUSTER, Haider Bee\.br\Date and Time Signed: 01/20/25 10:09 EDT Gastroenterology Office/Clin ic Noteon 01-17-2025 Gastroenterology Office/Clinic Note Gastroenterology Office/Clinic Note Chief [...] attempted, unable to obtain d/t body habitus. ELF results 11/2024 showed mid risk Plan - [...] neuropathy Complex renal cyst 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 Dizziness Dizziness and giddiness Erythema of [...] spur....., H (more content not included)... Normal [facility] Comment on above: Result Comment: Elec tronically Signed By: Candace SCHUSTER, Tomi Sheffield\.br\Date and Time Signed: 01/17/25 12:33 EDT Reminderson 01-02-2025 Reminders Reminders From: Concepcion Loaiza I To: Concepcion Loaiza I; Sent: 01/02/2025 08:18:36 EDT Show up: 01/06/2025 08:00:00 EDT Subject: Venkat Reminder/Recall Addendum by Concepcion Loaiza I on January 02, 2025 08:18:14 EDT Placing reminder in chart. From: Tomi Maria MD To: Concepcion Loaiza I; Sent: 01/01/2025 11:06:40 EDT Subject: General Message Caller Name: DONG WHITMORE; Caller Number: , M Please remind me next week to make sure to send rezdiffra or not for this patient [facility] Ambulatory Visit Summaryon 0 01-01-2025 Ambulatory [...] 30 mg Tab) potassium chloride (Potassium Chloride (Ipp-Pily-Oko M20) 20 mEq oral tablet, extended release) [...] EDT With: Kristofer SCHUSTER, Haider Bee Where: [address] [address]- [address]24 8:00 AM EDT With: Where: [address] [address]- Monday 9:15 AM EDT With: LATRICIA SCHUSTER, Araceli Treadwell Where: [facility] [place] [facility] [address], [address] [place] [address]- Medications What How Much When Why Instructions [...] stenosis Peripheral edema Handicap Placlizzie, 5 years. Contact prescribing physician if questions or concerns Unchanged nitroglycerin (nitroglycerin 0.4 mg sublingual Tab) 1 Tablets Sublingual Every 5 minutes as needed for for chest pain Contact prescribing physician if questions or concerns Unchanged nitroglycerin (nitroglycerin 0.4 mg sublingual Tab) Contact (more content not included)... Normal [facility] MR ELBOW RIGHT WITHOUT CONTR Ceferino 12-19-2024 [...] MonDec 20, 2024 9:22:13 AM EDT Normal [facility] Comment on above: Order Comment: PT/FA X Injury/Trauma or Illness?:Illness/Other How long have you had these symptoms (acute/chronic)?:Chronic Reason for exam?:Right elbow pain Type of Exam?:Initial Additional signs and symptoms?:n Office Visiton 12-18-2024 Follow-up visit [id number] Dong Whitmore 1950 M Date Provider Department Center 12/18/2024 [id number] [facility] Family History Problem Relation Age of Onset Coronary artery disease Other Diabetes Other Family Status - Relation Status Age at Other Level of Service:08843 [place] OFFICE/OUTPATIENT ESTABLISHED MOD MDM 30 MIN Reason for Visit and Comments: Coronary Artery Disease [187] Hyperlipidemia [182] - Had routine labs with lipid panel in Oct 2024. Hypertension [284327] Pre-op Exam [[id number]] - Needs surgery clearance with Dr. Jasmine. Shortness of Breath [536561] - SOB worsening over the couple of months Normal [facility] Lab Miscellaneous-LCon 12-06 Lab Miscellaneous COMMENT Invalid Interpretation Code [facility] Comment on above: Result Comment: Test Ordered: [id number] Enhanced Liver Fibrosis (ELF) ELF(TM) Score 11.00 [...] trials. J Hepatol. 2020 Apr;73(1):26-39. Performed at: [facility] [address] [id number] PhD Faye Ring Performed By: #### 1 [id number] #### [facility] [address] [place] [address] Ambulatory Visit Summaryon 0 12-04-2024 Ambulatory Visit Summary Ambulatory Visit Summary DONG WHITMORE :1950 Visit Date:12/04/2024 Ambulatory Visit Instructions Your Diagnosis Injury of right elbow Right elbow pain BMI 40.0-44.9, adult Non-smoker Your Care Team Attending Physician - Nanette Do Primary Care Physician - Haider Hickman MD This Is Your Medications List [facility] Prescription (Eric Prather, 5 years.) acarbose (acarbose [...] 30 mg Tab) potassium chloride (Potassium Chloride (Mym-Xzea-Cfs M20) 20 mEq oral tablet, extended release) [...] Appointments Monday 9:00 AM EST With: Where: [facility] Monday 9:45 AM EDT With: Candaec SCHUSTER, Tomi Sheffield Where: [place] [id number]- Monday 10:00 AM EDT With: Kristofer SCHUSTER, Haider Bee Where: [address] [address]24 8:00 AM EDT With: Where: [address] [address]- Monday 9:15 AM EDT With: LATRICIA SCHUSTER, Araceli Treadwell Where: [facility] [address], [address] [place] [address]- Medications What How Much When Why Instructions New methylPREDNISolone (Medrol 4 mg Tab) 1 Packets By Mouth As Directed Injury of right elbow Right elbow pain BMI 40.0-44.9, adult Non-smoker Duration: 6 Days as directed on package labeling Pickup at [facility]/pharmacy #[id number] Unchanged acarbose (acarbose 25 mg oral tablet) [...] omega-3 polyunsaturate (more content not included)... Normal [facility] Family Medicine Office/Clini c Noteon 12-04-2024 Family [...] x ray. pt prefers to go to [facility]. will call him with results. medrol dose pack sent in. pt declines meloxicam or any other pain medication. encouraged him to use heat. he states ice is not helping at all. follow up with Dr. Hickman 2 weeks Ordered: methylPREDNISolone, = 1 packet(s), Oral, As Directed, as directed on package labeling, X 6 day(s), # 21 tab(s), Refills(s) 0, Pharmacy: [facility]/pharmacy #[id number], 168, cm, 12/04/24 13:51:00 EST, Height/Length Dosing, 122.9, kg, 12/04/24 13:51:00 EST, Weight Dosing 2. Right elbow pain (M25.521: Pain in right elbow) medrol dose pack Ordered: methylPREDNISolone, = 1 packet(s), Oral, As Directed, as directed on package labeling, X 6 day(s), # 21 tab(s), Refills(s) 0, [id number], 168, cm, 12/04/24 13:51:00 EST, Height/Length Dosing, 122.9, kg, 12/04/24 13:51:00 EST, Weight Dosing 3. BMI 40.0-44.9, adult (Z68.41: Body mass index [BMI] 40.0-44.9, adult) BMI education given Ordered: methylPREDNISolone, = 1 packet(s), Oral, As Directed, as directed on package labeling, X 6 day(s), # 21 tab(s), Refills(s) 0, [id number], 168, cm, 12/04/24 13:51:00 EST, Height/Length Dosing, 122.9, kg, 12/04/24 13:51:00 EST, Weight Dosing 4. Non-smoker (Z78.9: Other specified health status) continue not smoking Ordered: methylPREDNISolone, = 1 packet(s), Oral, As Directed, as directed on package labeling, X 6 day(s), # 21 tab(s), Refills(s) 0, [id number], 168, cm, 12/04/24 13:51:00 EST, Height/Length [...] neuropathy Complex renal cyst 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 Dizziness Dizziness and giddiness Erythema of [...] (12/05/2016), y (more content not included)... Normal [facility] Comment on above: Result Comment: Elec tronically Signed By: Nanette Do\.br\Date and Time Signed: 12/04/24 14:24 EST Lab Miscellaneous-LCon 12-04 Test Code [id number] Invalid Interpretation Code [facility] Comment on above: Performed By: #### 1 [id number] #### [facility] [address] [place] [address] Test Name ELF Invalid Interpretation Code [facility] Comment on above: Performed By: #### 1 [id number] #### [facility] [address] [place] [address] Nursing Narrative Noteon Nursing Narrative Note Nursing Narrative Note Unable to obtain accurate fibroscan d/t body habitus. Normal [facility] Ambulatory Visit Summaryon 0 11-27-2024 Ambulatory [...] if questions or concerns Misc Prescription (Handicap Donard, 5 years.) acarbose (acarbose 25 mg oral [...] 30 mg Tab) potassium chloride (Potassium Chloride (Pnf-Daxc-Rhq M20) 20 mEq oral tablet, extended release) [...] Appointments Monday 9:00 AM EST With: Where: [facility] Monday 10:00 AM EDT With: Kristfoer SCHUSTER, Haider Bee Where: [address] [address]24 8:00 AM EDT With: Where: [address] [address]- Monday 9:15 AM EDT With: LATRICIA SCHUSTER, Araceli Treadwell Where: [facility] [address], [address] [place] [address]- You Need to Complete the Following Lab Miscellaneous-LC, Not Specified, Routine collect, ELF, 11/27/24, Order for future visit, Lab Collect, Fatty liver, Print Label By Order Location, [id number] Medications What How Much When Why Instructions [...] if questions or concerns Unchanged Misc Prescription (Gillianjosé miguel Ochoalizzie, 5 years.) See instructions Stage 3a chronic kidney disease Type 2 diabetes mellitus with peripheral vascular disease Type 2 diabetes mellitus with stage 3a chronic kidney disease and hypertension Erythema of skin BMI 40.0-44.9, adult Class 3 severe obesity due to excess calories with body ma (more content not included)... Normal [facility] Gastroenterology Office/Clin ic Noteon 11-27-2024 Gastroenterology [...] NO ACUTE CHANGES US RUQ 10/22/24 @ [place]: IMPRESSION: 1. Cholelithiasis. 2. Mild fatty infiltration [...] 84.1 fL (12/29/23) Chloride: 108 mmol/L (09/09/24) [place] Absolute: 0.4 E9/L (12/29/23) CO2: 26 mmol/L (09/09/24) [place] Auto: 7.1 % (12/29/23) Creatinine: 1.3 mg/dL [...] neuropathy Complex renal cyst 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 Dizziness Dizziness and giddiness Erythema of [...] urination Vitamin (more content not included)... Normal [facility] Comment on above: Result Comment: Elec [...] Hickman MD. This Is Your Medications List [facility] Prescription (Eric Prather, 5 years.) acarbose (acarbose [...] 30 mg Tab) potassium chloride (Potassium Chloride (Frd-Pmky-Mly M20) 20 mEq oral tablet, extended release) [...] EST With: Candace SCHUSTER, Tomi Sheffield Where: [facility] [address] [place] [address]- Monday 10:00 AM EDT With: Kristofer SCHUSTER, Haider Bee Where: [address] [address]24 8:00 AM EDT With: Where: [address] [address]- Monday 9:15 AM EDT With: LATRICIA SCHUSTER, Araceli Treadwell Where: [facility] [address], [address] [place] [address]- Medications What How Much When Why Instructions [...] Every day Unchanged potassium chloride (Potassium Chloride (Fsp-Bshw-Ltd M20) 20 mEq oral tablet, extended release (more content not included)... Normal [facility] Family Medicine Office/Clini c Noteon 11-18-2024 [...] removal of the upper arm, which included ygeqtthgz-fu-oqkihx mattress sutures. The area shows good signs [...] We reviewe (more content not included)... Normal [facility] Comment on above: Result Comment: Elec tronically Signed By: Kristofer SCHUSTER, Haider Sandhu.br\Date and Time Signed: 11/18/24 09:32 EST Ambulatory Visit Summaryon 0 2-04-2025 Ambulatory Visit Summary Ambulatory Visit Summary DONG WHITMORE :1950 Visit Date:11/12/2024 Ambulatory Visit Instructions Your Diagnosis BMI 45.0-49.9, adult Obesity, morbid, BMI 40.0-49.9 Nonsmoker Your Care Team Attending Physician - Haider Hickman MD Primary Care Physician - Haider Hickman MD This Is Your Medications List [facility] Prescription (Eric Yamilka, 5 years.) acarbose (acarbose [...] 30 mg Tab) potassium chloride (Potassium Chloride (Lon-Nhkr-Phm M20) 20 mEq oral tablet, extended release) [...] AM EST With: Haider Hickman MD Where: [address] [address]- Monday 9:30 AM EST With: Tomi Maria MD Where: [facility] [address] [address]- Monday 10:00 AM EDT With: Haider Hickman MD Where: [address] [address]24 8:00 AM EDT With: Where: [address] [address]- Monday 9:15 AM EDT With: Araceli BERUMDEZ MD Where: [facility] [address], [address] [place] [address]- Medications What How Much When [...] potassium chlorid (more content not included)... Normal [facility] Family Medicine Office/Clini c Noteon 11-12-2024 Family Medicine Office/Clinic Note Family Medicine Office/Clinic Note Chief Complaint ER follow up The patient presents with dizziness in the morning and stiffness affecting mobility. HPI Staff Pt presents today for ER follow up. Hospital: [facility] Visit date: 11/09/2024 Symptoms the patient [...] on slow positional changes upon waking. Further [place]-Hallpike maneuver to be considered if symptoms persist, with continued evaluation by an clearing distribution clerk pending referral completion. 3. Weakness (R53.1: Weakness) [...] musculoskeletal nee (more content not included)... Normal [facility] Comment on above: Result Comment: Elec tronically Signed By: Haider Hickman MD\.br\Date and Time Signed: 11/12/24 12:08 EST Ambulatory Visit Summaryon 0 11-04-2024 Ambulatory Visit Summary Ambulatory Visit Summary DONG WHITMORE :1950 Visit Date:11/04/2024 Ambulatory Visit Instructions Your Diagnosis 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 Mixed hyperlipidemia Acquired absence of second [...] Hickman MD This Is Your Medications List [facility] Prescription (Handicap Yamilka, 5 years.) acarbose (acarbose [...] 30 mg Tab) potassium chloride (Potassium Chloride (Kvj-Lcts-Rih M20) 20 mEq oral tablet, extended release) [...] EDT With: Kristofer SCHUSTER, Haider Bee Where: [address] [address]24 8:00 AM EDT With: Where: [address] [address]- Monday 9:15 AM EDT With: LATRICIA SCHUSTER, Araceli Treadwell Where: [facility] [address], [address] [place] [address]- Medications What How Much When Why Instructions [...] Every day Unchanged potassium chloride (Potassium Chloride (Kat-Ndwm-Hye M20) 20 mEq oral tablet, ex (more content not included)... Normal [facility] Medicine Office/Clini c Noteon 11-04-2024 Family Medicine [...] and sporadic. The underlying coronary arteriosclerosis in gambell arteries, benign hypertension with chronic kidney disease, [...] cholelithiasis present Assessment/Plan 1. 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 (I25.10: Atherosclerotic heart disease of gambell coronary artery without angina pectoris) Diet and exercise. No CP at this time. 2. Mixed hyperlipidemia (E78.2: Mixed hyperlipidemia) Continue on statins as before. 3. Long-term insulin use (Z79.4: superintendent terminal (current) use of insulin) Continue on Insulin. [...] an i (more content not included)... Normal [facility] Comment on above: Result Comment: Elec tronically Signed By: Haider Hickman MD\.br\Date and Time Signed: 11/04/24 11:42 EST U Microalbon 10-24-2024 Albumin DL <= 20 mg/L (U) [Mass/Vol] 4.0 mg/dL High 0.0-1.9 [facility] Comment on above: Performed By: #### 1 [id number] ####[facility] [address] [place] [address] Ambulatory Visit Summaryon 0 10-15-2024 Ambulatory Visit Summary Ambulatory Visit Summary DONG WHITMORE Boom :1950 Visit Date:10/15/2024 Ambulatory Visit Instructions Your [...] Hickman MD This Is Your Medications List [facility] Prescription (Eric Prather, 5 years.) acarbose (acarbose [...] 30 mg Tab) potassium chloride (Potassium Chloride (Eju-Saxf-Jic M20) 20 mEq oral tablet, extended release) [...] Appointments 2024 10:40 AM EST With: Where: [address] [address]24 10:30 AM EST With: Haider Hickman MD Where: [address] [address]24 8:00 AM EDT With: Where: [facility] [place] [address] [place] [address]- Monday 9:15 AM EDT With: LATRICIA SCHUSTER, Araceli Treadwell Where: [facility] [place] [address], [address] [place] [address]- Medications What How Much When Why Instructions [...] (more content not included)... Normal [facility] Family Medicine Office/Clini c Noteon 10-15-2024 [...] Microalbumin Level Urine PT & PTT Urine Microalbumin/Creatini ne Ratio US Liver 2. Obesity, morbid, BMI 40.0-49.9 (E66.01: Morbid (severe) obesity due to excess calories) Diet and exercise advised Ordered: CBC w/ Auto Diff Comprehensive Metabolic Panel HgbA1c Lipid Panel Microalbumin Level Urine PT & PTT Urine Microalbumin/Creatini ne Ratio US Liver 3. Nonsmoker (Z78.9: Other specified health status) Please continue not to smoke Ordered: CBC w/ Auto Diff Comprehensive Metabolic Panel HgbA1c Lipid Panel Microalbumin Level Urine PT & PTT Urine Microalbumin/Creatini ne Ratio US Liver 4. Acquired absence of right great toe (Z89.411: Acquired absence of right great toe) Still absent Ordered: CBC w/ Auto Diff Comprehensive Metabolic Panel HgbA1c Lipid Panel Microalbumin Level Urine PT & PTT Urine Microalbumin/Creatini ne Ratio US Liver 5. Chronic painful diabetic neuropathy (E11.40: Type 2 diabetes mellitus with diabetic neuropathy, unspecified) Well-controlled. No concerns today. Ordered: CBC w/ Auto Diff Comprehensive Metabolic Panel HgbA1c Lipid Panel Microalbumin Level Urine PT & PTT Urine Microalbumin/Creatini ne Ratio US Liver 6. Major depressive disorder, 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 (F32.5: Major depressive disorder, single episode, in full remission) Improved. Ordered: CBC w/ Auto Diff Comprehensive Metabolic Panel HgbA1c Lipid Panel Microalbumin Level Urine PT & PTT Urine Microalbumin/Creatini ne Ratio US Liver 7. Stage 3a chronic kidney disease (N18.31: Chronic kidney disease, stage 3a) Labs ordered. Ordered: CBC w/ Auto Diff Comprehensive Metabolic Panel HgbA1c Lipid Panel Microalbumin Level Urine PT & PTT Urine Microalbumin/Creatini ne Ratio 8. Stasis ulcer (I83.009: Varicose veins of unspecified lower extremity with ulcer of unspecified site) Resolved. Will remove out of the chart. Ordered: CBC w/ Auto Diff Comprehensive Metabolic Panel HgbA1c Lipid Panel Microalbumin Level Urine PT & PTT Urine Microalbumin/Creatini ne Ratio 9. Type 2 diabetes mellitus with peripheral vascular disease (E11.51: Type 2 diabetes mellitus with diabetic peripheral angiopathy without gangrene) Blood sugars have been better controlled. Has had no concerns. Ordered: CBC w/ Auto Diff Comprehensive Metabolic Panel HgbA1c Lipid Panel Microalbumin Level Urine PT & PTT Urine Microalbumin/Creatini ne Ratio 10. Fatty (change of) liver, not elsewhere classified (K76.0) Schedule ultrasound to evaluate liver size and pathology; address potential causes of elevated INR and liver discomfort. Will follow-up in 1 month. Ordered: CBC w/ Auto Diff Comprehe (more content not included)... Normal [facility] Comment on above: Result Comment: Elec tronically Signed By: Kristofer SCHUSTER, Haider Sandhu.br\Date and Time Signed: 10/15/24 13:10 EST CMPon 09-10-2024 Albumin [Mass/Vol] 4.3 g/dL Normal 3.3-5.0 [facility] Comment on above: Performed By: #### 2 [id number] #### [facility] [address] [place] [address] Albumin/Globulin (S) [Mass conc ratio] 1.7 Normal 1.1-2.2 [facility] Comment on above: Performed By: #### 2 [id number] #### [facility] [address] [place] [address] ALP [Catalytic activity/Vol] 73 Int._Unit/L Normal 21-98 [facility] Comment on above: Performed By: #### 2 [id number] #### [facility] [address] [place] [address] ALT No additional P-5'-P [Catalytic activity/Vol] 23 Int._Unit/L Normal 6-46 [facility] Comment on above: Performed By: #### 2 [id number] #### [facility] [address] [place] [address] Anion gap [Moles/Vol] 12 mmol/L Normal 6-16 [facility] Comment on above: Performed By: #### 2 [id number] #### [facility] [address] [place] [address] AST [Catalytic activity/Vol] 25 Int._Unit/L Normal 5-43 [facility] Comment on above: Performed By: #### 2 [id number] #### [facility] [address] [place] [address] Bilirubin [Mass/Vol] 0.5 mg/dL Normal 0.0-1.1 [facility] Comment on above: Performed By: #### 2 [id number] #### [facility] [address] [place] [address] Calcium [Mass/Vol] 9.2 mg/dL Normal 8.9-11.1 [facility] Comment on above: Performed By: #### 2 [id number] #### [facility] [address] [place] [address] Chloride [Moles/Vol] 108 mmol/L Normal 101-111 [facility] Comment on above: Performed By: #### 2 [id number] #### [facility] [address] [place] [address] CO2 [Moles/Vol] 26 mmol/L Normal 21-31 [facility] Comment on above: Performed By: #### 2 [id number] #### [facility] [address] [place] [address] Creatinine [Mass/Vol] 1.3 mg/dL Normal 0.5-1.3 [facility] Comment on above: Performed By: #### 2 [id number] #### [facility] [address] [place] [address] Globulin (S) [Mass/Vol] 2.5 g/dL Normal 1.4-4.0 [facility] Comment on above: Performed By: #### 2 112855 #### [facility] [address] [place] [address] Glucose [Mass/Vol] 137 mg/dL Normal 55-199 [facility] Comment on above: Performed By: #### 2 [id number] #### [facility] [address] [place] [address] Potassium [Moles/Vol] 4.7 mmol/L Normal 3.5-5.3 [facility] Comment on above: Performed By: #### 2 175279 #### [facility] [address] [place] [address] Protein [Mass/Vol] 6.8 g/dL Normal 6.0-7.8 [facility] Comment on above: Performed By: #### 2 [id number] #### [facility] [address] [place] [address] Sodium [Moles/Vol] 141 mmol/L Normal 135-145 [facility] Comment on above: Performed By: #### 2 464302 #### [facility] [address] [place] [address] Urea nitrogen [Mass/Vol] 28 mg/dL High 5-21 [facility] Comment on above: Performed By: #### 2 761786 #### [facility] [address] [place] [address] Urea nitrogen/Creatinine [Mass ratio] 22 No Units High 10-20 [facility] Comment on above: Performed By: #### 2 586971 #### [facility] [address] [place] [address] Magnesiumon 09-10-2024 Magnesium [Mass/Vol] 1.8 mg/dL Normal 1.3-2.4 [facility] Comment on above: Performed By: #### 2 383477 #### [facility] [address] [place] [address] eGFRon 09-10-2024 eGFR 57 mL/min/1.73 m2 Low >=59 [facility] Comment on above: Performed By: #### 1 [id number] #### [facility] [address] [place] [address] Family Medicine Office/Clini c Noteon 09-09-2024 Family [...] involvement and proprioceptive complications. Consider assessment at [facility] for balance and gait evaluation. Discuss with [...] manage morbid obesity. Possible consultation with a mineral wool insulation supervisor for weight management strategies. Ordered: Body Mass [...] (more content not included)... Normal [facility] Comment on above: Result Comment: Elec [...] at 6.25mg BID. Follow-up 2-3 months. THanks [facility] Ambulatory Visit Summaryon 1 10-15-2023 [...] Hickman MD This Is Your Medications List [facility] Prescription (Handicap Placard, 5 years.) acarbose (acarbose 25 mg oral [...] 30 mg Tab) potassium chloride (Potassium Chloride (Rap-Hmhw-Kvt M20) 20 mEq oral tablet, extended release) [...] EST With: Kristofer SCHUSTER, Haider Bee Where: [address] [address] 2024 8:00 AM EDT With: Where: [address] [address]- Monday 9:15 AM EDT With: LATRICIA SCHUSTER, Araceli Treadwell Where: [facility] [address], [address] [place] [address]- Medications What How Much When Why Instructions [...] Every day Unchanged potassium chloride (Potassium Chloride (Gwt-Cpgh-Xfr M20) 20 mEq oral tablet, extended release) 1 Tablets By Mouth Every day Unchanged pregabalin (Lyrica 75 mg Cap) 1 Capsules By Mouth 2 times a day Unchanged simvastatin (simvastatin 40 mg Tab) 1 Tablets (more content not included)... Normal [facility] Family Medicine Office/Clini c Noteon 08-15-2024 [...] thoughts-Not at this time Most recent ISABELA: 10 Most recent PHQ9: 5 questions/concerns: History [...] BID, # 60 cap(s), Refills(s) 1, Pharmacy: [facility]/pharmacy #[id number], 169, cm, 08/15/24 10:34:00 EST, [...] (more content not included)... Normal [facility] Comment on above: Result Comment: Elec tronically Signed By: Kristofer SCHUSTER, Haider Bee\.br\Date and Time Signed: 08/15/24 11:26 EST OCTAVIOOVon 08-14-2024 CNOV Office Visit (NPRC21 ) DONG WHITMORE ([id number]) 1950 M Date Time Provider Department 08/14/24 10:00 AM CHIQUI ROBLES NPRC21 During your visit today, we recorded the following information about you: Pulse Respiration Blood pressure Weight 59/minute 16/minute 137/69 117.2 kg Claudia Chilel MD 08/14/2024 10:51 AM Signed THE [facility] [place] August 14, 2024 This is a face [...] Chiqui Robles MD 08/26/2024 4:34 PM Addendum [facility] STAFF PHYSICIAN NOTE OF PERSONAL [...] - psychotherapy was utilized during the visit. Bubv-lp-cdji time: 46525 (16-37 mins) actual time spend in psychotherapy 18 minutes Type of therapeutic intervention:Supporti ve Target symptoms: Pain coping skills and Acceptance and adapting Progress/Session notes:processing Interactive Complexity: None STAFF PHYSICIAN:: Chiqui Robles MD DATE of SERVICE: 08/14/2024 Referring Provider: CHIQUI ROBLES [[id number]] Allergies As of Date: 08/14/2024 Noted Allergy Reaction NSAIDS (NON-STEROIDAL ANTI-INFLAM* 4 8 - GI Upset Date Reviewed: 08/14/2024 [...] [E66.813, E66.01, Z68.41] Order(s):PROVIDER ORDERED FOLLOW UP [[id number]] Order #: [id number]: 1 Prescriptions as of 08/26/2024 - pregabalin (LYRICA) 75 mg capsule Take 75 mg by mouth two times a day. - memantine (NAMENDA) (more content not included)... Normal [facility] Office Visiton 08-07-2024 Follow-up visit [id number] Dong Whitmore Boom 1950 M Date Provider Department Center 08/07/2024 01288-MWTYRZESSENCE LAM DALTON Sarkar Family History Problem Relation Age of Onset Coronary artery disease Other Diabetes Other Family Status - Relation Status Age at Other Level of Service:54941 [place] OFFICE/OUTPATIENT ESTABLISHED MOD MDM 30 MIN Reason for Visit and Comments: Hypertension [175801] - He brought BP log from home with him today. Readings are usually in the 130-140's systolic. Hyperlipidemia [182] Coronary Artery Disease [187] - Denies chest pain and SOB. Normal [facility] Ambulatory Visit Summaryon 1 Ambulatory Visit [...] 30 mg Tab) potassium chloride (Potassium Chloride (Dkk-Wvio-Vvd M20) 20 mEq oral tablet, extended release) [...] AM EST With: Haider Hickman MD Where: [address] [address]- Monday 3:30 PM EST With: Haider Hickman MD Where: [address] [address] 2024 8:00 AM EDT With: Where: [facility] Medicine [address] [address]- Monday 9:15 AM EDT With: LATRICIA SCHUSTER, Araceli Treadwell Where: [facility] [place] [address], [address] [place] [address]- Someone Will Contact You Regarding These Appointments [facility] External Ambulatory Referral, Neurology, 08/01/24 12:15:00 EDT, Suicidal ideation Unspecified mononeuropathy of right lower limb BMI 40.0-44.9, adult Morbid obesity with body mass index (BMI) of 40.0 or higher Nonsmoker Medications What How Much When Why Instructions New pregabalin (Lyrica 75 mg Cap) 1 Capsules By Mouth 2 times a day Pickup at [facility]/pharmacy #[id number] Changed tizanidine (tiZANidine 4 mg Tab) 4 Milligram By Mouth Every 8 hours Pickup at [facility]/pharmacy #6177 Changed venlafaxine (venlafaxine 75 mg Tab) 1 Tablets By Mouth 2 times a day Pickup at [facility]/pharmacy #6177 Unchanged acarbose (acarbose 25 mg [...] (more content not included)... Normal [facility] Family Medicine Office/Clini c Noteon 08-01-2024 [...] E&M of Est. Patient High 40-[address] [facility] External Ambulatory Referral Prolonged OV 15 min 80124 2. Unspecified mononeuropathy of right lower limb [...] E&M of Est. Patient High 40-[address] [facility] External Ambulatory Referral Prolonged OV 15 min 86286 3. BMI 40.0-44.9, adult (Z68.41: Body mass index [BMI] 40.0-44.9, adult) Discussed the importance of lifestyle changes, including dietary modifications and physical activity, to manage BMI. Addressed the potential contributions of morbid obesity to peripheral neuropathic symptoms. Ordered: Body Mass Index (BMI) documented 3008F Current tobacco non-user 1036F Depression Screening Positive 3354F E&M of Est. Patient High 40-54 Min 79343 Fall Risk Screen 2 or more w/injury 1100F [facility] External (more content not included)... Normal [facility] Comment on above: Result Comment: Elec [...] other machine again): L sitting 175/112 Normal [facility] Telephoneon 07-23-2024 Telephone [id number] Dong Whitmore 1950 M Date Provider Department Center 07/23/2024 928-BRITNEY MURPHY DALTON Sarkar Family History Problem Relation Age of Onset Coronary artery disease Other Diabetes Other Family Status - Relation Status Age at Other Normal [facility] Office Visiton 07-19-2024 Follow-up visit [id number] Dong Whitmore 1950 M Date Provider Department Center 07/19/2024 [facility]8-ELAINE [facility] C[facility]ie [facility] Family History Problem Relation Age of Onset Coronary artery disease Other Diabetes Other Family Status - Relation Status Age at Other Level of Service:88204 [place] OFFICE/OUTPATIENT ESTABLISHED MOD MDM 30 MIN Normal [facility] Ambulatory Visit Summaryon 1 Ambulatory Visit [...] if questions or concerns Misc Prescription (Handicap Yamilka, 5 years.) acarbose [...] 30 mg Tab) potassium chloride (Potassium Chloride (Cko-Hjeh-Rzu M20) 20 mEq oral tablet, extended release) [...] PM EST With: Haider Hickman MD Where: [address] [address]- Monday 10:30 AM EST With: Araceli BERMUDEZ MD Where: [facility] [address] [place] [address] 2024 8:00 AM EDT With: Where: [address] [address]- Monday 9:15 AM EDT With: Araceli BERMUDEZ MD Where: [facility] [address] [place] [address]- You Need to Schedule the Following Appointments Follow Up with Araceli BERMUDEZ MD, URL When: Where: [address] [address]- Medications What How Much When Why Instructions Unchanged sodium bicarbonate (sodium bicarbonate 650 mg Tab) 2 Tablets By Mouth 3 times a day Duration: 90 Days Pickup at [facility]/pharmacy #[id number] Unchanged acarbose (acarbose 25 mg oral tablet) [...] (more content not included)... Normal [facility] Urology Office/Clinic Noteon 07-17-2024 Urology Office/Clinic Note Urology Office/Clinic Note Chief Complaint follow up HPI Staff 73 yo male here for f/up with renal US. Previous dx: kidney stone, complex renal cyst, BPH w/ LUTS, impotence. Taking Sodium Bicarb 650mg tid. Renal US 10/31/23 [facility]. KUB 11/10/23 [facility] - no stones id'd. S/p cysto, R RPG, R ESWL 01/04/24. Renal US 01/24/24 [facility] - neg limited renal ultrasound. Renal US [...] with voice recognition artificial intelligence software, specifically [employer], [employer] and or [employer]. Substitutions may have occurred due to the [...] RPG, R ESWL 01/04/24. Renal US 01/24/24 [facility] - neg limited renal ultrasound. Renal US [...] MD, URL [address] [address]- Additional Instructions: 1 year w/ renal US Patient Education Dietary Guidelines to Help Prevent Kidney Stones I, Roya Álvarez, personally scribed for Dr. Bermudez on 07/17/2024 10:05:06 (more content not included)... Normal [facility] Comment on above: Result Comment: Elec tronically Signed By: Araceli BERMUDEZ MD\.br\Date and Time Signed: 07/17/24 10:09 EDT\.br\Electronically Co-Signed By: Roya Álvarez\.br\Date and Time Co-Signed: 07/17/24 10:05 EDT Office Visiton 06-26-2024 Follow-up visit [id number] Dong Whitmore 1950 M Date Provider Department Center 06/26/2024 Y[facility]-MARY APARICIO CARD [facility] Family History Problem Relation Age of Onset Coronary artery disease Other Diabetes Other Family Status - Relation Status Age at Other Level of Service:11255 [place] OFFICE/OUTPATIENT ESTABLISHED MOD MDM 30 MIN Reason for Visit and Comments: Coronary Artery Disease [187] Hypertension [996577] Normal [facility] XR Foot - right 3 [facility] Imaging Result: [facility] Radiology Study observation (narrative) [facility] No Panel Informationon 06-12 Chelle Brandon NP [...] and draped in the usual sterile fashion. [facility] Family Medicine Office/Clini c Noteon 05-23-2024 Family [...] cm ulcer- no drainage noted; right lower leg-reddened,edematou s, warm and tender to touch Neurological: oriented [...] day(s), # 20 cap(s), Refills(s) 0, Pharmacy: [facility]/pharmacy #[id number], 169, cm, 05/22/24 14:52:00 EDT, [...] day(s), # 20 cap(s), Refills(s) 0, Pharmacy: [facility]/pharmacy #[id number], 169, cm, 05/22/24 14:52:00 EDT, Height/Length Dosing, 122, kg, 05/22/24 14:52:00 EDT, Weight Dosing 3. Non-smoker (Z78.9: Other specified health status) Encouraged to continue as a non-smoker Ordered: clindamycin, 300 mg = 1 cap(s), Oral, BID, X 10 day(s), # 20 cap(s), Refills(s) 0, Pharmacy: [facility]/pharmacy #[id number], 169, cm, 05/22/24 14:52:00 EDT, [...] (more content not included)... Normal [facility] Comment on above: Result Comment: Elec [...] Hickman MD This Is Your Medications List [facility] Prescription (Eric Prather, 5 years.) acarbose (acarbose [...] 30 mg Tab) potassium chloride (Potassium Chloride (Oxv-Kxxt-Yfo M20) 20 mEq oral tablet, extended release) [...] AM EDT With: Kajal Freeman DPM Where: [facility] Monday 9:15 AM EDT With: Araceli BERMUDEZ MD Where: [facility] [address], [address] [place] [address]- Monday 3:30 PM EST With: Haider Hickman MD Where: [address] [address]- Monday 10:30 AM EST With: Araceli BERMUDEZ MD Where: [facility] [address], [address] [place] [address]- 2024 8:00 AM EDT With: Where: [address] [address]- Medications What How Much When Why Instructions New clindamycin (clindamycin 300 mg oral cap) 1 Capsules By Mouth 2 times a day Cellulitis of leg BMI 40.0-44.9, adult Non-smoker Class 3 severe obesity due to excess calories with body mass index (BMI) of 40.0 to 44.9 in adult Duration: 10 Days Pickup at [facility]/pharmacy #2564 Unchanged acarbose (acarbose 25 mg oral tablet) [...] Unchanged nitroglyce (more content not included)... [facility] Office Visit (NPRC21 ) DONG WHITMORE ([id number]) 1950 M Date Time Provider Department 04/24/24 9:00 AM CHIQUI ROBLES NPRC21 During your visit today, we recorded the following information about you: Pulse Blood pressure Weight Height 61/minute 122/89 122.5 kg 1.702 m Parish Rios MD 04/24/2024 11:26 AM Signed THE [facility] [place] April 24, 2024 This is a face [...] Camacho Desimir, MD 04/24/2024 11:26 AM Signed [facility] STAFF PHYSICIAN NOTE OF PERSONAL [...] - psychotherapy was utilized during the visit. Ctmm-qf-qzzy time: 96569 (16-37 mins) actual time spend in psychotherapy 18min minutes Type of therapeutic intervention:Acceptan ce and Commitment Target symptoms: Activity pacing Progress/Session [...] which included preparing to see the patient, liay-jr-oiyy patient care, completing clinical documentation, performing a medically appropriate examination, and counseling and educating the patient/family/caregi naren. As noted, the patient's clinical situation is complex and serious with significant comorbidity of pain and functional limitations. This requires higher levels of time, intensity, and expense with longitudinal care and support. STAFF PHYSICIAN:: Chiqui Robles MD DATE of SERVICE: 04/24/2024 Referring Provider: HERBERTH ARAUJO [[id number]] Allergies As of Date: 04/24/2024 Noted Allergy Reaction NSAIDS (NON-STEROIDAL ANTI-INFLAM* 4 8 - GI Upset Date Reviewed: 04/24/2024 [...] TO [facility]OV[facility] (CHRONIC PAIN) [2173946] Order #: [id number]: 1 PAIN RECOVERY FOLLOW UP ORDER [[id number]] Order #: [id number]: 1 FUTURE PROVIDER ORDERED FOLLOW UP [4746981] Order #: [id number]: 1 FUTURE memantine (NAMENDA) 5 mg tabletTake 1 tablet by mouth once daily.Disp: 30 tabletRfl: 3 CONSULT TO KETAMINE FOR CHRONIC PAIN [9044] Order #: [id number]: 1 FUTURE Prescriptions as of 04/24/2024 - memantine (NAMENDA) 5 mg tablet Take 1 tablet by mouth once daily. - aspirin, enteric coated (ASPIRIN, ENTERIC COATED) 81 mg EC tablet Take 81 mg by mouth once daily. - fi (more content not included)... Normal [facility] BRIEF OP NOTon 04-03-2024 BRIEF OP NOT HNO ID: [id number] Author: CAPRICE DOWNING MD Service: Pain Management Author Type: Fellow Type: Brief Op Note Filed: 04/03/2024 10:35 Note Text: BRIEF OPERATIVE / PROCEDURE NOTE LOG ID: [id number] SURGERY/PROCEDURE DATE: 04/03/2024 PROCEDURE START TIME: 09 PROCEDURE END TIME: 1030 PRE-OP/PRE-PROCEDURE DIAGNOSIS: Chronic toe pain, right foot [M79.674, G89.29] Complex regional pain syndrome type II of right lower limb [G57.71] POST-OP/POST-PROCEDUR E DIAGNOSIS: Chronic toe pain, right foot [M79.674, G89.29] Complex regional pain syndrome type II of right lower limb [G57.71] SURGEON(S)/PROCEDURAL IST(S) AND ACCOUNTS EXECUTIVE(S): Surgeon(s) and Role: * Herberth Araujo MD, PhD - Primary * Caprice Downing MD No Additional Staff SURGERY/PROCEDURE(S): Attempted Right L4 and L5 Dorsal Root Ganglion Stimulator ANESTHESIA: Anxiolysis and Local anesthetic FINDINGS: None ESTIMATED BLOOD LOSS: Minimal SPECIMENS: None COMPLICATIONS: None Caprice Downing MD Pain Medicine Fellow April 03, [address] [facility] NURSING PROGon 04-03-2024 NURSING PROG HNO ID: [id number] Author: CAYETANO ROSALES RN Service: Nursing Author Type: Registered Nurse Type: Nursing Progress Note Filed: 04/08/2024 15:32 Note Text: Summary: Follow up phone call Follow up phone call made regarding outcome of procedure. No answer voicemail left - The patient was instructed to call [phone] with the percentage of pain relief and what activities have improved. VIEO message also sent. [place] NURSING PROG HNO ID: [id number] Author: SURINDER LARES RN Service: Nursing Author Type: Registered Nurse Type: Nursing Progress Note Filed: 04/09/2024 10:09 Note Text: Summary: Post Procedure Call Patient left voice mail. Team was unable to finish procedure due to patient was unable to stay still. No pain relief noted. Surinder Lares RN April 09, 2024 [place] NURSING PROG HNO ID: [id number] Author: EMILEE HYDE RN Service: ? Author Type: Registered Nurse Type: Nursing Progress Note Filed: 04/03/2024 10:45 Note Text: Dr. Marian Downing (fellow) discusses reason why procedure was aborted today. Other options for pain management was discussed with patient and . [place] OPERATIVE NOon 04-03-2024 OPERATIVE NO HNO ID: [id number] Author: HERBERTH ARAUJO MD, PhD Service: Pain Management Author Type: Physician Type: Operative Report Filed: 04/03/2024 20:14 Note Text: OPERATIVE/PROCEDURE REPORT : LOG ID: [id number] SURGERY/PROCEDURE DATE: 04/03/2024 INCISION/PROCEDURE START TIME: 9:59 AM INCISION CLOSE/PROCEDURE END TIME: 10:30 AM PRE-OP/PRE-PROCEDURE DIAGNOSIS: Chronic toe pain, right foot [M79.674, G89.29] Complex regional pain syndrome type II of right lower limb [G57.71] POST-OP/POST-PROCEDUR E DIAGNOSIS: Chronic toe pain, right foot [M79.674, G89.29] Complex regional pain syndrome type II of right lower limb [G57.71] SURGERY/PROCEDURE(S): Attempted Right L4 and L5 Dorsal Root Ganglion Stimulator SURGEON(S)/PROCEDURAL IST(S) AND ACCOUNTS EXECUTIVE(S): Surgeon(s) and Role: * Herberth Araujo MD, [...] ELECTRONIC SIGNATURE, Herberth Araujo MD, PhD Normal [facility] HISTORY PHYSICALon HISTORY PHYSICAL HNO ID: [id number] Author: HERBERTH ARAUJO MD, PhD Service: Pain Management Author Type: Physician Type: H&P Filed: 04/03/2024 09:33 Note Text: PROCEDURE EVALUATION AND HISTORY AND PHYSICAL EXAM SUBJECTIVE: Dong Whitmore is a 73 year old man who presents to [facility] for Right L4 and L5 Dorsal Root Ganglion Stimulator Trial. This is his first (1) procedure. Focused Review of Systems: PAIN: Denies any contraindications to the procedure including coagulopathy, infection, recent cerebral/myocardial infarct, and hemodynamic instability. 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 Current Outpatient Medications [...] ACID ORAL Fish Oil 1200mg BID fish oil/borage/flax/om3,6 ,9 1 (FISH,BORA,FLAX OILS-OM3,6,9NO1 ORAL) ORAL, EVERY 24 [...] 03, 2024 Herberth Araujo MD, PhD Normal [facility] NURSING PROGon 04-01-2024 NURSING PROG HNO ID: [id number] Author: HELENA BAUTISTA RN Service: ? Author [...] 2 hours before the appointment. 2. A substitute bus driver must be present who can drive you home. If you are coming by medical transport, you must have a responsible person other than the rn transport with you. 3. Do you take any [...] or cannot make the appointment by calling [phone] (Option 2). [facility]INMN[facility] DONG WHITMORE ([id number]) 1950 M Date Time Provider Department 03/19/24 HERBERTH ARAUJOMN During your visit today, we recorded the following information about you: Emilee So, RN 03/19/2024 1:32 PM Signed Spoke with patient at request of planner/scheduler as patient has questions about referral to infectious disease. Patient states that he spoke with his PCP, Dr. Hickman ([phone]) who spoke with Dr. Vega in Infectious disease at [facility]. Dr. Hickman ordered lab work [...] Date: 03/19/2024 Noted Allergy Reaction NSAIDS (NON-STEROIDAL ANTI-INFLAM* 4 8 - GI Upset Date Reviewed: 02/29/2024 Reviewed by: Preeti Layton LPN - Fully Assessed Reason for Visit: Nurse Triage Call [185] Prescriptions as of 03/21/2024 - aspirin, enteric coated (ASPIRIN, ENTERIC COATED) 81 mg EC tablet Take 81 mg by mouth once daily. - fish oil/borage/flax/om3,6 ,9 1 (FISH,BORA,FLAX OILS-OM3,6,9NO1 ORAL) [...] Resolved Class 3 severe obesity with serious comorbidity* 4 Encounter Status:Closed by EMILEE SO on 03/21/[address] [facility] BMPon 03-08-2024 Anion gap [Moles/Vol] 14 mmol/L Normal 6-16 [facility] Comment on above: Performed By: #### 2 [id number] #### [facility] [address] [place] [address] Calcium [Mass/Vol] 9.4 mg/dL Normal 8.9-11.1 [facility] Comment on above: Performed By: #### 2 [id number] #### [facility] [address] [place] [address] Chloride [Moles/Vol] 104 mmol/L Normal 101-111 [facility] Comment on above: Performed By: #### 2 [id number] #### [facility] [address] [place] [address] CO2 [Moles/Vol] 24 mmol/L Normal 21-31 [facility] Comment on above: Performed By: #### 2 [id number] #### [facility] [address] [place] [address] Creatinine [Mass/Vol] 1.5 mg/dL High 0.5-1.3 [facility] Comment on above: Performed By: #### 2 [id number] #### [facility] [address] [place] [address] Glucose [Mass/Vol] 109 mg/dL Normal 55-199 [facility] Comment on above: Performed By: #### 2 [id number] #### [facility] [address] [place] [address] Potassium [Moles/Vol] 4.2 mmol/L Normal 3.5-5.3 [facility] Comment on above: Performed By: #### 2 [id number] #### [facility] [address] [place] [address] Sodium [Moles/Vol] 138 mmol/L Normal 135-145 [facility] Comment on above: Performed By: #### 2 [id number] #### [facility] [address] [id number] Urea nitrogen [Mass/Vol] 26 mg/dL High 5-21 [facility] Comment on above: Performed By: #### 2 [id number] #### [facility] [address] [place], [place] [id number] Urea nitrogen/Creatinine [Mass ratio] 17 No Units Normal 10-20 [facility] Comment on above: Performed By: #### 2 [id number] #### [facility] [address] [place] [address] [id number] 03-08-2024 HbA1c (Bld) [Mass fraction] 6.5 % High <=5.9 [facility] Comment on above: Performed By: #### 7 [id number] #### [facility] [address] [place] [address] eGFRon 03-08-2024 eGFR 48 mL/min/1.73 m2 Low >=59 [facility] Comment on above: Order Comment: Order added by Discern Expert. Performed By: #### 1 [id number] #### [facility] [address] [place] [id number] CNOVon 02-29-2024 CNOV Office Visit (PAINMN ) DOGN WHITMORE ([id number]) 1950 M Date Time Provider Department 02/29/24 1:30 PM HERBERTH ARAUJO PAINMN During your visit today, we recorded the following information about you: Temperature Pulse Blood pressure Weight 97.4 degrees 62/minute 138/73 122.5 kg Height 1.702 m Herberth Araujo MD, PhD 03/18/2024 7:05 PM Signed [facility] Pain Management Department New Patient Consultation Referring Physician: SELF Chief Complaint: Right third toe pain SUBJECTIVE: Dong Whitmore is a 73 year old male with a pertinent past medical history of diabetes who presents to [facility] for the evaluation of right third toe pain. 15-year history of right third toe pain. He notes that over this time the pain has become increasingly severe has caused him significant discomfort and suffering. He has been to many specialists in the [facility]-over the course of the past 15 years, [...] not radiate on the right. Pain Description: ache,sharp,dull,throb b Timing: changes in severity but always present [...] Upset Current Outpatient Medications Medication Sig fish oil/borage/flax/om3,6 ,9 1 (FISH,BORA,FLAX OILS-OM3,6,9NO1 ORAL) [...] (more content not included)... Normal [facility] CNPNon 02-06-2024 CNPN Telephone (PAMAVN) DONG WHITMORE ([id number]) 1950 M Date Time Provider Department 02/06/24 FRANCOISE SINGLETARY During your visit today, we recorded the following information about you: Lela Hyatt RN 02/06/2024 10:46 AM Signed ----- Message from Francoise Singletary MD sent at 02/05/2024 3:12 PM EDT ----- Do you mind calling him and giving him the number to schedule at [facility] to discuss DRG? I'd suggest seeking an appointment with the following doctors who perform DRG implantation: Dr. Carlisle, Dr. Araujo, Dr. Dan, Dr. Moo Heard and Dr. Kamara may do DRG - I'm not sure. Thanks Lela! ----- Message ----- From: Livia Lester PA-C Sent: 02/05/2024 2:07 PM EDT To: Francoise Singletary MD No one on this side of [facility] that I know of does DRG so, we also send to [facility] I would just have Lela call the [...] Date: 02/06/2024 Noted Allergy Reaction NSAIDS (NON-STEROIDAL ANTI-INFLAM* 4 8 - GI Upset Date Reviewed: 02/05/2024 Reviewed by: Francoise Singletary MD - Fully Assessed Prescriptions as of 02/13/2024 - fish oil/borage/flax/om3,6 ,9 1 (FISH,BORA,FLAX OILS-OM3,6,9NO1 ORAL) [...] Resolved Class 3 severe obesity with serious comorbidity* Encounter Status:Closed by LELA HYATT on 02/06/[address] [facility] Ksenia 02-05-2024 CNJACKELIN Office Visit (DENICE ) ALDO WHITMOREHEN ([id number]) 1950 M Date Time Provider Department 02/05/24 11:30 AM FRANCOISE SINGLETARY During your visit today, we recorded the following information about you: Pulse Blood pressure Weight 80/minute 131/70 124.7 kg Francoise Singletary MD 02/05/2024 3:14 PM Signed [facility] Pain Management Department Consultation Date: February [...] not radiate on the right. Pain Description: ache,sharp,dull,throb b Timing: changes in severity but always present Aggravating Factors: sitting Alleviating Factors: standing/walking Interference with: social activities. In the past 12 months, He completed 0 physical therapy sessions. Physical therapy is n/a. The patient has seen other pain providers. [facility] Neurology OV 02/01/22 Assessment and Plan 71 [...] for environmental allergies and polydipsia. Bruises/bleeds easily. Psychiatric/Behaviora l: Negative. OBJECTIVE Imaging Objective February 02, 2024 [...] Ambulation: Gait is antalgic. Patient ambulates, unassisted. Neuro/Musculoskeletal : flexion (normal 45): full without pain extension [...] (more content not included)... Normal [facility] A1C with Estimated Average G piercen 09-11-2023 HbA1c (Bld) [Mass fraction] 6.900 % High 4.3-5.6 % [facility] Other HbA1c (Bld) [Mass fraction] 151 mg/dL [facility] Other Glucose - FINGER STICKon Glucose [Mass/Vol] 138 mg/dL [facility] Other Glucose mean value [Mass/vol ume] in Blood Estimated from glycated hemoglobinOrdered By: Aldo Middleton on 09-11-2023 Average glucose Estimated from glycated hemoglobin (Bld) [Mass/Vol] 151 mg/dL [facility] Hemoglobin A1c percentageOrd ered By: Aldo Middleton on 09-11-2023 HbA1c (Bld) [Mass fraction] 6.9 % 4.3-5.6 [facility] Comment on above: Increased risk for d iabetes: 5.7 - 6.4diabetes: >6.4glycemic control for adults with diabetes: <7.0 A1C HEMOGLOBINon 02-14-2023 HbA1c (Bld) [Mass fraction] 7.6 % [facility] Other Glucose - FINGER STICKon Glucose [Mass/Vol] 215 mg/dL [facility] Other HbA1c (Bld) [Mass fraction]o n 02-14-2023 A1C HEMOGLOBIN [employer] Other ECHOCARDIO M/2D COMPLETEon 0 12-30-2022 ECHOCARDIO M/2D COMPLETE Patient: DONG WHITMORE Exam Date: 12/30/2022 : 1950 Gender:M Ordering : [facility] Admission #: [id number] Family : Order #: [id number] CLICK HERE TO VIEW EXAM ECHOCARDIOGRAM REPORT [...] Thibodeaux M.D. on 12/30/2022 at 18:49 Normal [facility] NM STRESS/REST MULTIon 12-29 NM STRESS/REST MULTI Patient: DONG WHITMORESuzie Exam Date: 12/29/2022 : 1950 Gender:M Ordering : [facility] Admission #: [id number] Family : Order #: [id number] CLICK HERE TO VIEW EXAM RADIOLOGY REPORT [...] Morales M.D. on 12/30/2022 at 09:41 Normal [facility] US MAMI DOP LEG RTon 12-09-19 [...] by: MORGAN ROJO Date: 2022-12-08 16:15 Normal [facility] TSHon 11-25-2022 TSH 2.370 uIU/mL Normal 0.358-3.740 [facility] Comment on above: Performed By: #### T #### [facility] [address] [place] [address] [address] Eli Jarvis BNPon 11-08-2022 Natriuretic peptide B (Bld) [Mass/Vol] 122.0 pg/mL Normal <=900.0 [facility] Comment on above: Performed By: #### C MP, BNP #### [facility] [address] [place] [address] [address] Eli Jarvis CBC AUTO DIFFon 11-08-2022 BASO # 0.1 103/ul Normal 0.0-0.1 [facility] Comment on above: Performed By: #### C BC ####[facility] [address] [place] [address]DrSuzie Jarvis Basophils/100 WBC (Bld) 0.7 % Normal 0.2-2.0 [facility] Comment on above: Performed By: #### C BC ####[facility] [address] [place], [place] [address]Dr. Eli Jarvis EO # 0.2 103/ul Normal 0.0-0.7 [facility] Comment on above: Performed By: #### C BC ####[facility] [address] [place] [address]Dr. Eli Jarvis Eosinophils/100 WBC (Bld) 3.5 % Normal 0.9-7.0 [facility] Comment on above: Performed By: #### C BC ####[facility] [address] [place] [address]DrSuzie Jarvis Erythrocyte distribution width (RBC) [Ratio] 13.8 % Normal 11.0-15.0 [facility] Comment on above: Performed By: #### C BC ####[facility] [address] [place] [address]DrSuzie Jarvis Hematocrit (Bld) [Volume fraction] 42.0 % Normal 42.0-54.0 [facility] Comment on above: Performed By: #### C BC ####[facility] [address] [place], [place] [address]DrSuzie Jarvis Hemoglobin (Bld) [Mass/Vol] 13.8 g/dL Critically low 14.0-18.0 [facility] Comment on above: Performed By: #### C BC ####[facility] [address] [place] [address]Dr. Eli Jarvis IG # 0.03 10e3/ul Normal 0.00-0.03 [facility] Comment on above: Performed By: #### C BC ####[facility] [address] [place] [address]Dr. Eli Jarvis IG % 0.4 % Normal 0.0-0.5 [facility] Comment on above: Performed By: #### C BC ####[facility] [address] [place] [address]Dr. Eli Jarvis LYMPH # 1.3 103/ul Normal 1.2-3.8 [facility] Comment on above: Performed By: #### C BC ####[facility] [address] [place] [address]Dr. Eli Jarvis Lymphocytes/100 WBC (Bld) 18.8 % Critically low 20.5-60.0 [facility] Comment on above: Performed By: #### C BC ####[facility] [address] [place] [address]Dr. Eli Jarvis MANUAL DIFF REQ NO Normal [facility] Comment on above: Performed By: #### C BC ####[facility] [address] [place] [id number]. Eli Jarvis MCH (RBC) [Entitic mass] 27.8 pg Normal 25.9-34.0 [facility] Comment on above: Performed By: #### C BC ####[facility] [address] [place] [id number]. Eli Jarvis MCHC (RBC) [Mass/Vol] 32.9 g/dL Normal 29.9-35.2 [facility] Comment on above: Performed By: #### C BC ####[facility] [address] [place] [address]Dr. Eli Jarvis MCV (RBC) [Entitic vol] 84.7 fL Normal 80.0-94.0 [facility] Comment on above: Performed By: #### C BC ####[facility] [address] [place] [address]Dr. Eli Jarvis MONO # 0.6 103/ul Normal 0.3-0.8 [facility] Comment on above: Performed By: #### C BC ####[facility] [address] [place] [address]Dr. Eli Jarvis Monocytes/100 WBC (Bld) 8.5 % Normal 1.7-12.0 [facility] Comment on above: Performed By: #### C BC ####[facility] [address] [place] [id number]. Eli Jarvis NEUT # 4.7 103/ul Normal 1.4-6.5 [facility] Comment on above: Performed By: #### C BC ####[facility] [address] [place], [place] [address]Dr. Eli Jarvis Neutrophils/100 WBC (Bld) 68.1 % Normal 43.0-75.0 [facility] Comment on above: Performed By: #### C BC ####[facility] [address] [place], [place] [address]Dr. Eli Jarvis Platelet mean volume (Bld) [Entitic vol] 10.3 fL Normal 9.5-13.5 [facility] Comment on above: Performed By: #### C BC ####[facility] [address] [place], [place] [address]Dr. Eli Jarvsi PLT 189 103/ul Normal 150-450 [facility] Comment on above: Performed By: #### C BC ####[facility] [address] [place], [place] [address]Dr. Eli Jarvis RBC 4.96 106/ul Normal 4.70-6.10 [facility] Comment on above: Performed By: #### C BC ####[facility] [address] [place] [id number]. Eli Jarvis WBC 7.0 103/ul Normal 4.0-11.0 [facility] Comment on above: Performed By: #### C BC ####[facility] [address] [place], [place] [address]DcDr. Eli Jarvis PROF 14(COMP METB)on 023 Albumin [Mass/Vol] 3.6 g/dL Normal 3.4-5.0 [facility] Comment on above: Performed By: #### C MP, BNP #### [facility] [address] [place] [address] [address] Eli Jarvis Albumin/Globulin [Mass ratio] 1.1 {ratio} Normal [facility] Comment on above: Performed By: #### C MP, BNP #### [facility] [address] [place] [address] [address] Eli Jarvis ALP [Catalytic activity/Vol] 90 U/L Normal 46-116 [facility] Comment on above: Performed By: #### C MP, BNP #### [facility] [address] [place] [address] [address] Eli Jarvis ALT [Catalytic activity/Vol] 42 U/L Normal 16-63 [facility] Comment on above: Performed By: #### C MP, BNP #### [facility] [address] [place] [address] [address] Eli Jarvis Anion gap [Moles/Vol] 13.5 mmol/L Normal [facility] Comment on above: Performed By: #### C MP, BNP #### [facility] [address] [place] [address] [address] Eli Jarvis AST [Catalytic activity/Vol] 26 U/L Normal 15-37 [facility] Comment on above: Performed By: #### C MP, BNP #### [facility] [address] [place] [address] [address] Eli Jarvis Bilirubin [Mass/Vol] 0.4 mg/dL Normal 0.2-1.0 [facility] Comment on above: Performed By: #### C MP, BNP #### [facility] [address] [address] [address] Eli Jarvis Calcium [Mass/Vol] 9.3 mg/dL Normal 8.5-10.1 [facility] Comment on above: Performed By: #### C MP, BNP #### [facility] [address] [address] [address] Eli Jarvis Chloride [Moles/Vol] 104 mmol/L Normal 98-107 [facility] Comment on above: Performed By: #### C MP, BNP #### [facility] [address] [address] [address] Eli Jarvis CO2 [Moles/Vol] 25.7 mmol/L Normal 21.0-32.0 [facility] Comment on above: Performed By: #### C MP, BNP #### [facility] [address] [address] [address] Eli Jarvis Creatinine [Mass/Vol] 1.32 mg/dL Critically high 0.70-1.30 [facility] Comment on above: Performed By: #### C MP, BNP #### [facility] [address] [address] [address] Eli Jarvis EGFR-AF NORWEGIAN >60 Normal >=60 [facility] Comment on above: Performed By: #### C MP, BNP #### [facility] [address] [address] [address] Eli Jarvis EGFR-NON AF NORWEGIAN 53 mL/min/1.73m2 Critically low >=60 [facility] Comment on above: Performed By: #### C MP, BNP #### [facility] [address] [address] [address] Eli Jarvis Globulin (S) [Mass/Vol] 3.3 g/dL Normal [facility] Comment on above: Performed By: #### C MP, BNP #### [facility] [address] [address] [address] Eli Jarvis Glucose [Mass/Vol] 154 mg/dL Critically high 74-106 [facility] Comment on above: Performed By: #### C MP, BNP #### [facility] [address] [address] [address] Eli Jarvis Potassium [Moles/Vol] 4.2 mmol/L Normal 3.5-5.1 [facility] Comment on above: Performed By: #### C MP, BNP #### [facility] [address] [address] [address] Eli Jarvis Protein [Mass/Vol] 6.9 g/dL Normal 6.4-8.2 [facility] Comment on above: Performed By: #### C MP, BNP #### [facility] [address] [address] [address] Eli Jarvis Sodium [Moles/Vol] 139 mmol/L Normal 136-145 [facility] Comment on above: Performed By: #### C MP, BNP #### [facility] [address] [address] [address] Eli Jarvis Urea nitrogen [Mass/Vol] 23.0 mg/dL Critically high 7.0-18.0 [facility] Comment on above: Performed By: #### C MP, BNP #### [facility] [address] [address] [address] Eli Jarvis Urea nitrogen/Creatinine [Mass ratio] 17.4 mg/mg Normal [facility] Comment on above: Performed By: #### C MP, BNP #### [facility] [address] [address] [address] Eli Jarvis A1C HEMOGLOBINon 11-07-2022 HbA1c (Bld) [Mass fraction] 7.6 % [facility] [employer] Other Glucose - FINGER STICKon Glucose [Mass/Vol] 172 mg/dL [facility] Other HbA1c (Bld) [Mass fraction]o n 11-07-2022 A1C HEMOGLOBIN [facility] US KIDNEYSon 2022 US KIDNEYS EXAMINATION: [...] by: MORGAN ROJO Date: 2022 18:30 Normal [facility] A1C HEMOGLOBINon 07-27-2022 HbA1c (Bld) [Mass fraction] 7.2 % [facility] Other Glucose - FINGER STICKon Glucose [Mass/Vol] 160 mg/dL [facility] Other HbA1c (Bld) [Mass fraction]o n 07-27-2022 A1C HEMOGLOBIN [employer] Other A1C HEMOGLOBINon 04-21-2022 HbA1c (Bld) [Mass fraction] 7.6 % [facility] Other Glucose - FINGER STICKon Glucose [Mass/Vol] 184 mg/dL [facility] Other HbA1c (Bld) [Mass fraction]o n 04-21-2022 A1C HEMOGLOBIN [employer] Other [employer] Creat Ratio,Uon Albumin DL <= 20 mg/L (U) [Mass/Vol] 10.3354255 mg/dL High 0.0-1.8 mg/dL [facility] Other Albumin/Creatinine DL <= 20 mg/L (U) [Mass ratio] 70.668646 mg/g High 0.0-30.0 mg/g [facility] Other Creatinine (U) [Mass/Vol] 011.5187915 mg/dL [facility] Other CBC AUTO DIFFon 04-07-2022 BASO # 0.0 103/ul Normal 0.0-0.1 [facility] Comment on above: Performed By: #### C BC #### [facility] [address] [place] [address] Dr. Eli Jarvis Basophils/100 WBC (Bld) 0.6 % Normal 0.2-2.0 [facility] Comment on above: Performed By: #### C BC #### [facility] [address] [place] [address] Dr. Eli Jarvis EO # 0.2 103/ul Normal 0.0-0.7 [facility] Comment on above: Performed By: #### C BC #### [facility] [address] [place] [address] Dr. Eli Jarvis Eosinophils/100 WBC (Bld) 2.9 % Normal 0.9-7.0 [facility] Comment on above: Performed By: #### C BC #### [facility] [address] [place] [address] Dr. Eli Jarvis Erythrocyte distribution width (RBC) [Ratio] 13.8 % Normal 11.0-15.0 [facility] Comment on above: Performed By: #### C BC #### [facility] [address] [place] [address] Dr. Eli Jarvis Hematocrit (Bld) [Volume fraction] 40.7 % Critically low 42.0-54.0 [facility] Comment on above: Performed By: #### C BC #### [facility] [address] [place] [address] Dr. Eli Jarvis Hemoglobin (Bld) [Mass/Vol] 13.3 g/dL Critically low 14.0-18.0 [facility] Comment on above: Performed By: #### C BC #### [facility] [address] [place] [address] Dr. Eli Jarvis IG # 0.04 10e3/ul Critically high 0.00-0.03 [facility] Comment on above: Performed By: #### C BC #### [facility] [address] [place] [address] Dr. Eli Jarvis IG % 0.6 % Critically high 0.0-0.5 [facility] Comment on above: Performed By: #### C BC #### [facility] [address] [place] [address] Dr. Eli Jarvis LYMPH # 1.3 103/ul Normal 1.2-3.8 [facility] Comment on above: Performed By: #### C BC #### [facility] [address] [place] [address] Dr. Eli Jarvis Lymphocytes/100 WBC (Bld) 18.7 % Critically low 20.5-60.0 [facility] Comment on above: Performed By: #### C BC #### [facility] [address] [place] [address] Dr. Eli Jarvis MANUAL DIFF REQ NO Normal [facility] Comment on above: Performed By: #### C BC #### [facility] [address] [place] [address] Dr. Eli Jarvis MCH (RBC) [Entitic mass] 28.1 pg Normal 25.9-34.0 [facility] Comment on above: Performed By: #### C BC #### [facility] [address] [place] [address] Dr. Eli Jarvis MCHC (RBC) [Mass/Vol] 32.7 g/dL Normal 29.9-35.2 [facility] Comment on above: Performed By: #### C BC #### [facility] [address] [place] [address] Dr. Eli Jarvis MCV (RBC) [Entitic vol] 86.0 fL Normal 80.0-94.0 [facility] Comment on above: Performed By: #### C BC #### [facility] [address] [place] [address] Dr. Eli Jarvis MONO # 0.4 103/ul Normal 0.3-0.8 [facility] Comment on above: Performed By: #### C BC #### [facility] [address] [place] [address] Dr. Eli Jarvis Monocytes/100 WBC (Bld) 6.2 % Normal 1.7-12.0 [facility] Comment on above: Performed By: #### C BC #### [facility] [address] [address] [address] Eli Jarvis NEUT # 4.9 103/ul Normal 1.4-6.5 [facility] Comment on above: Performed By: #### C BC #### [facility] [address] [address] [address] Eli Jarvis Neutrophils/100 WBC (Bld) 71.0 % Normal 43.0-75.0 [facility] Comment on above: Performed By: #### C BC #### [facility] [address] [address] [address] Eli Jarvis Platelet mean volume (Bld) [Entitic vol] 9.9 fL Normal 9.5-13.5 [facility] Comment on above: Performed By: #### C BC #### [facility] [address] [address] [address] Eli Jarvis PLT 184 103/ul Normal 150-450 [facility] Comment on above: Performed By: #### C BC #### [facility] [address] [address] [address] Eli Jarvis RBC 4.73 106/ul Normal 4.70-6.10 [facility] Comment on above: Performed By: #### C BC #### [facility] [address] [address] [address] Eli Jarvis WBC 6.9 103/ul Normal 4.0-11.0 [facility] Comment on above: Performed By: #### C BC #### [facility] [address] [address] [address] Eli Jarvis LIPID PROFILEon 04-07-2022 CHOL-HDL RATIO NORM SEE BELOW Normal [facility] Comment on above: Result Comment: 3.3 - 4.4 LOW RISK 4.4 - 7.1 AVERAGE RISK 7.1 - 11.0 MODERATE RISK >11.0 HIGH RISK Performed By: #### C MP, LIPID ####[facility] [id number] [address]Dr. Eli Jarvis Cholesterol [Mass/Vol] 127 mg/dL Normal <=200 [facility] Comment on above: Performed By: #### C MP, LIPID ####[facility] [address] [id number]. Eli Jarvis Cholesterol in HDL [Mass/Vol] 36 mg/dL Critically low 40-60 [facility] Comment on above: Performed By: #### C MP, LIPID ####[facility] [id number] [id number]. Eli Jarvis Cholesterol in LDL [Mass/Vol] 58.4 mg/dL Normal [facility] Comment on above: Performed By: #### C MP, LIPID ####[facility] [address] [address]Dr. Eli Jarvis Cholesterol.total/Cho lesterol in HDL [Mass ratio] 3.5 {ratio} Normal [facility] Comment on above: Performed By: #### C MP, LIPID ####[facility] [address] [address]Dr. Eli Jarvis HDL NORMAL > or = 60 mg/dl - LO W CARDIOVASCULAR RISK <40 mg/dl - HIGH CARDIOVASCULAR RISK Normal [facility] Comment on above: Performed By: #### C MP, LIPID ####[facility] [id number] [phone]. Eli Jarvis LDL CALC NORMAL SEE BELOW Normal [facility] Comment on above: Result Comment: <100 mg/dl OPTIMAL 100 - 129 mg/dl NEAR OR ABOVE OPTIMAL 130 - 159 mg/dl BORDERLINE HIGH 160 - 189 mg/dl HIGH >190 mg/dl VERY HIGH Performed By: #### C MP, LIPID ####[facility] [address] [phone]. Eli Jarvis Triglyceride [Mass/Vol] 163 mg/dL Critically high <=150 [facility] Comment on above: Performed By: #### C MP, LIPID ####[facility] [address] [phone]. Eli Jarvis VLDL CALC 32.6 mg/dL Normal [facility] Comment on above: Performed By: #### C MP, LIPID ####[facility] [address] [phone]. Eli Jarvis PROF 14(COMP METB)on 022 Albumin [Mass/Vol] 3.8 g/dL Normal 3.4-5.0 [facility] Comment on above: Performed By: #### C MP, LIPID ####[facility] [address] [address]Dr. Eli Jarvis Albumin/Globulin [Mass ratio] 1.1 {ratio} Normal [facility] Comment on above: Performed By: #### C MP, LIPID ####[facility] [address] [address]Dr. Eli Jarvis ALP [Catalytic activity/Vol] 89 U/L Normal 46-116 [facility] Comment on above: Performed By: #### C MP, LIPID ####[facility] [address] [address]Dr. Eli Jarvis ALT [Catalytic activity/Vol] 43 U/L Normal 16-63 [facility] Comment on above: Performed By: #### C MP, LIPID ####[facility] [address] [address]Dr. Eli Jarvis Anion gap [Moles/Vol] 10.7 mmol/L Normal [facility] Comment on above: Performed By: #### C MP, LIPID ####[facility] [address] [address]Dr. Eli Jarvis AST [Catalytic activity/Vol] 24 U/L Normal 15-37 [facility] Comment on above: Performed By: #### C MP, LIPID ####[facility] [address] [address]Dr. Eli Jarvis Bilirubin [Mass/Vol] 0.2 mg/dL Normal 0.2-1.0 [facility] Comment on above: Performed By: #### C MP, LIPID ####[facility] [address] [address]Dr. Eli Jarvis Calcium [Mass/Vol] 9.1 mg/dL Normal 8.5-10.1 [facility] Comment on above: Performed By: #### C MP, LIPID ####[facility] [address] [address]Dr. Eli Jarvis Chloride [Moles/Vol] 104 mmol/L Normal 98-107 [facility] Comment on above: Performed By: #### C MP, LIPID ####[facility] [address] [address]Dr. Eli Jarvis CO2 [Moles/Vol] 27.5 mmol/L Normal 21.0-32.0 [facility] Comment on above: Performed By: #### C MP, LIPID ####[facility] [id number] [place], [place] [address]Dr. Eli Jarvis Creatinine [Mass/Vol] 1.15 mg/dL Normal 0.70-1.30 [facility] Comment on above: Performed By: #### C MP, LIPID ####[facility] [address] [place], [place] [address]Dr. Eli Jarvis EGFR-AF NORWEGIAN >60 Normal >=60 [facility] Comment on above: Performed By: #### C MP, LIPID ####[facility] [address] [place], [place] [address]Dr. Eli Jarvis EGFR-NON AF NORWEGIAN >60 Normal >=60 [facility] Comment on above: Performed By: #### C MP, LIPID ####[facility] [address] [address]Dr. Eli Jarvis Globulin (S) [Mass/Vol] 3.4 g/dL Normal [facility] Comment on above: Performed By: #### C MP, LIPID ####[facility] [address] [address]Dr. Eli Jarvis Glucose [Mass/Vol] 157 mg/dL Critically high 74-106 [facility] Comment on above: Performed By: #### C MP, LIPID ####[facility] [address] [address]Dr. Eli Jarvis Potassium [Moles/Vol] 4.2 mmol/L Normal 3.5-5.1 [facility] Comment on above: Performed By: #### C MP, LIPID ####[facility] [address] [phone]. Eli Jarvis Protein [Mass/Vol] 7.2 g/dL Normal 6.4-8.2 [facility] Comment on above: Performed By: #### C MP, LIPID ####[facility] [address] [phone]. Eli Jarvis Sodium [Moles/Vol] 138 mmol/L Normal 136-145 [facility] Comment on above: Performed By: #### C MP, LIPID ####[facility] [address] [phone]. Eli Jarvis Urea nitrogen [Mass/Vol] 26.0 mg/dL Critically high 7.0-18.0 [facility] Comment on above: Performed By: #### C MP, LIPID ####[facility] [address] [phone]. Eli Jarvis Urea nitrogen/Creatinine [Mass ratio] 22.6 mg/mg Normal [facility] Comment on above: Performed By: #### C MP, LIPID ####[facility] [address] [phone]. Eli Jarvis A1C HEMOGLOBINon 10-21-2021 HbA1c (Bld) [Mass fraction] 6.6 % [facility] Other Glucose - FINGER STICKon Glucose [Mass/Vol] 169 mg/dL [facility] Other HbA1c (Bld) [Mass fraction]o n 10-21-2021 A1C HEMOGLOBIN [employer] Other Comprehensive Metabolic Pane deann 07-29-2021 Albumin [Mass/Vol] 3.9 g/dL 3.2-5.5 [facility] Other Albumin/Globulin [Mass ratio] 1.6 {ratio} [facility] Other ALP [Catalytic activity/Vol] 63 U/L 32-92 [facility] Other ALT [Catalytic activity/Vol] 32 U/L 10-60 [facility] Other AST [Catalytic activity/Vol] 32 U/L 10-42 [facility] Other Bilirubin [Mass/Vol] 0.5 mg/dL 0.3-1.2 [facility] Other Calcium [Mass/Vol] 9.7 mg/dL 8.2-10.2 [facility] Other Chloride [Moles/Vol] 105 mmol/L 95-114 [facility] Other CO2 [Moles/Vol] 22.7 mmol/L 22.0-30.0 [facility] Other Creatinine [Mass/Vol] 1.28 mg/dL 0.64-1.27 [facility] Other Glucose [Mass/Vol] 111 mg/dL 70-100 [facility] Other Potassium [Moles/Vol] 4.1 mmol/L 3.5-5.1 [facility] Other Protein [Mass/Vol] 6.3 g/dL 6.1-7.9 [facility] Other Sodium [Moles/Vol] 139 mmol/L 136-146 [facility] Other Urea nitrogen [Mass/Vol] 23 mg/dL 9-23 [facility] Other Comprehensive Metabolic Panel 55 [facility] Other Comprehensive Metabolic Panel > 60 [facility] Other Comprehensive Metabolic Panel 2.4 [facility] Other Hepatitis Acute Panelon 10-2 Hepatitis Acute Panel Negative Negative [facility] Other Hepatitis Acute Panel <0.1 0.0-0.9 [facility] Other Vital Signs Date Time Vital Sign Value Performing Clinician Facility 05-22-2025 08:59-0400 Body height 165.1 cm Bassam Aguilar DPM Work Phone: [facility] 05-22-2025 08:59-0400 Body mass index (BMI) [Ratio] 45.93 kg/m2 Bassam Aguilar DPM Work Phone: [facility] 05-22-2025 08:59-0400 Body weight 125.19 kg Bassam Aguilar DPM Work Phone: [facility] 05-22-2025 08:59-0400 Respiratory rate 16 /min Bassam Aguilar DPM Work Phone: [facility] 05-14-2025 10:55-0400 Body height 170.18 cm Kaia Torres PhD Work Phone: [facility] 05-14-2025 10:55-0400 Body mass index (BMI) [Ratio] 40.08 kg/m2 Kaia Torres PhD Work Phone: [facility] 05-14-2025 10:55-0400 Body surface area Derived from formula 2.34 m2 Kaia Torres PhD Work Phone: [facility] 05-14-2025 10:55-0400 Body weight 116.07 kg Kaia Torres PhD Work Phone: [facility] 04-30-2025 14:19-0400 Body height 165.1 cm David Wong MD Work Phone: [facility] 04-30-2025 14:19-0400 Body mass index (BMI) [Ratio] 45.93 kg/m2 David Wong MD Work Phone: [facility] 04-30-2025 14:19-0400 Body weight 125.19 kg David Wong MD Work Phone: [facility] 04-30-2025 14:19-0400 Diastolic blood pressure 77 mm[Hg] David Wong MD Work Phone: [facility] 04-30-2025 14:19-0400 Heart rate 76 /min David Wong MD Work Phone: [facility] 04-30-2025 14:19-0400 Systolic blood pressure 113 mm[Hg] David Wong MD Work Phone: [facility] 04-03-2025 13:03-0400 Body weight 116.2 kg Deo Hickman Work Phone: [facility] 03-31-2025 09:19-0400 Body height 165.1 cm David Wong MD Work Phone: [facility] 03-31-2025 09:19-0400 Body mass index (BMI) [Ratio] 45.93 kg/m2 David Wong MD Work Phone: [facility] 03-31-2025 09:19-0400 Body weight 125.19 kg David Wong MD Work Phone: [facility] 03-31-2025 09:19-0400 Diastolic blood pressure 63 mm[Hg] David Wong MD Work Phone: [facility] 03-31-2025 09:19-0400 Heart rate 78 /min David Wong MD Work Phone: [facility] 03-31-2025 09:19-0400 Systolic blood pressure 98 mm[Hg] David Wong MD Work Phone: [facility] 03-26-2025 13:09-0400 Body height 170.18 cm Deo Hickman Work Phone: [facility] 03-26-2025 13:09-0400 Body mass index (BMI) [Ratio] 40.4 kg/m2 Deo Hickman Work Phone: [facility] 03-26-2025 13:09-0400 Body weight 117 kg Deo Hickman Work Phone: [facility] 03-26-2025 13:09-0400 Diastolic blood pressure 56 mm[Hg] Deo Hickman Work Phone: [facility] 03-26-2025 13:09-0400 Heart rate 63 /min Deo Hickman Work Phone: [facility] 03-26-2025 13:09-0400 Respiratory rate 18 /min Deo Hickman Work Phone: [facility] 03-26-2025 13:09-0400 SaO2% (BldA) [Mass fraction] 98 % Deo Hickman Work Phone: [facility] 03-26-2025 13:09-0400 Systolic blood pressure 117 mm[Hg] Deo Hickman Work Phone: [facility] 03-19-2025 11:38-0400 Body height 170.18 cm Deo Hickman Work Phone: [facility] 03-19-2025 11:38-0400 Body mass index (BMI) [Ratio] 39.9 kg/m2 Deo Hickman Work Phone: [facility] 03-19-2025 11:38-0400 Body temperature 97.2 [degF] Deo Hickman Work Phone: [facility] 03-19-2025 11:38-0400 Body weight 115.66 kg Deo Hickman Work Phone: [facility] 03-19-2025 11:38-0400 Diastolic blood pressure 70 mm[Hg] Deo Hickman Work Phone: [facility] 03-19-2025 11:38-0400 Heart rate 96 /min Deo Hickman Work Phone: [facility] 03-19-2025 11:38-0400 SaO2% (BldA) [Mass fraction] 98 % Deo Hickman Work Phone: [facility] 03-19-2025 11:38-0400 Systolic blood pressure 150 mm[Hg] Deo Hickman Work Phone: [facility] 03-13-2025 13:17-0400 Body height 170.18 cm [facility] 03-13-2025 13:17-0400 Body mass index (BMI) [Ratio] 39.1 kg/m2 [facility] 03-13-2025 13:17-0400 Body weight 113.3 kg [facility] 03-13-2025 13:17-0400 Diastolic blood pressure 93 mm[Hg] [facility] 03-13-2025 13:17-0400 Systolic blood pressure 147 mm[Hg] [facility] 03-06-2025 09:16-0400 Body height 165.1 cm Bassam Brown DPM Work Phone: [facility] 03-06-2025 09:16-0400 Body mass index (BMI) [Ratio] 45.93 kg/m2 Bassam Brown DPM Work Phone: [facility] 03-06-2025 09:16-0400 Body weight 125.19 kg Bassam Brown DPM Work Phone: [facility] 03-06-2025 09:16-0400 Respiratory rate 18 /min Bassam Brown DPM Work Phone: [facility] 10-17-2024 10:14-0500 Body height 165.1 cm Bassam Brown DPM Work Phone: [facility] 10-17-2024 10:14-0500 Body mass index (BMI) [Ratio] 45.93 kg/m2 Bassam Brown DPM Work Phone: [facility] 10-17-2024 10:14-0500 Body weight 125.19 kg Bassam Brown DPM Work Phone: [facility] 10-17-2024 10:14-0500 Respiratory rate 16 /min Bassam Aguilar DPM Work Phone: [facility] 08-29-2024 09:27-0500 Body mass index (BMI) [Ratio] 45.93 kg/m2 Christopher Lalo DO Work Phone: [facility] 08-29-2024 09:27-0500 Body weight 125.19 kg Christopher Lalo DO Work Phone: [facility] 08-29-2024 09:27-0500 Diastolic blood pressure 76 mm[Hg] Christopher Lalo DO Work Phone: [facility] 08-29-2024 09:27-0500 Heart rate 64 /min Christopher Lalo DO Work Phone: [facility] 08-29-2024 09:27-0500 SaO2% (BldA) [Mass fraction] 95 % Christopher Lalo DO Work Phone: [facility] 08-29-2024 09:27-0500 Systolic blood pressure 134 mm[Hg] Christopher Lalo DO Work Phone: [facility] 08-14-2024 09:59-0500 Body mass index (BMI) [Ratio] 40.46 kg/m2 Chiqui Robles MD Work Phone: [facility] 08-14-2024 09:59-0500 Body weight 117.2 kg Chiqui Robles MD Work Phone: [facility] 08-14-2024 09:59-0500 Diastolic blood pressure 69 mm[Hg] Chiqui Robles MD Work Phone: [facility] 08-14-2024 09:59-0500 Heart rate 59 /min Chiqui Robles MD Work Phone: [facility] 08-14-2024 09:59-0500 Respiratory rate 16 /min Chiqui Robles MD Work Phone: [facility] 08-14-2024 09:59-0500 SaO2% (BldA) [Mass fraction] 97 % Chiqui Robles MD Work Phone: [facility] 08-14-2024 09:59-0500 Systolic blood pressure 137 mm[Hg] Chiqui Robles MD Work Phone: [facility] 08-08-2024 09:32-0400 Body height 165.1 cm Bassam Aguilar DPM Work Phone: [facility] 08-08-2024 09:32-0400 Body mass index (BMI) [Ratio] 42.43 kg/m2 Bassam Aguilar DPM Work Phone: [facility] 08-08-2024 09:32-0400 Body weight 115.67 kg Bassam Aguilar DPM Work Phone: [facility] 08-08-2024 09:32-0400 Diastolic blood pressure 79 mm[Hg] Bassam Aguilar DPM Work Phone: [facility] 08-08-2024 09:32-0400 Heart rate 82 /min Bassam Aguilar DPM Work Phone: [facility] 08-08-2024 09:32-0400 Systolic blood pressure 128 mm[Hg] Bassam Aguilar DPM Work Phone: [facility] 08-06-2024 09:53-0400 Body height 165.1 cm Khai Heard DO Work Phone: [facility] 08-06-2024 09:53-0400 Body mass index (BMI) [Ratio] 42.43 kg/m2 Khai Heard DO Work Phone: [facility] 08-06-2024 09:53-0400 Body weight 115.67 kg Khai Heard DO Work Phone: [facility] 07-31-2024 10:20-0400 Body height 165.1 cm Shyam Freeman DPM FACFAS Work Phone: [facility] 07-31-2024 10:20-0400 Body mass index (BMI) [Ratio] 42.43 kg/m2 Shyam Dolce DPM [employer] Work Phone: [facility] 07-31-2024 10:20-0400 Body weight 115.67 kg Shyam Dolce DPM [employer] Work Phone: [facility] 07-31-2024 10:20-0400 Diastolic blood pressure 79 mm[Hg] Shyam Dolce DPM FAC[employer]AS Work Phone: [facility] 07-31-2024 10:20-0400 Heart rate 68 /min Shyam Dolce DPM [employer]AC[employer] Work Phone: [facility] 07-31-2024 10:20-0400 Systolic blood pressure 128 mm[Hg] Shyam Dolce DPM FAC[employer]AS Work Phone: [facility] 07-24-2024 10:12-0400 Body height 165.1 cm Shyam Dolce DPM [employer]AC[employer] Work Phone: [facility] 07-24-2024 10:12-0400 Body mass index (BMI) [Ratio] 42.43 kg/m2 Shyam Dolce DPM [employer]AC[employer] Work Phone: [facility] 07-24-2024 10:12-0400 Body weight 115.67 kg Shyam Dolce DPM [employer]AC[employer] Work Phone: [facility] 07-24-2024 10:12-0400 Diastolic blood pressure 78 mm[Hg] Shyam Dolce DPM FAC[employer]AS Work Phone: [facility] 07-24-2024 10:12-0400 Heart rate 83 /min Shyam Dolce DPM FAC[employer] Work Phone: [facility] 07-24-2024 10:12-0400 Systolic blood pressure 131 mm[Hg] Shyam Dolce DPM FAC[employer]AS Work Phone: [facility] 07-23-2024 09:37-0400 Body height 165.1 cm Arlen Sanchez [employer] Work Phone: [facility] 07-23-2024 09:37-0400 Body mass index (BMI) [Ratio] 42.43 kg/m2 Arlen Sanchez DO Work Phone: [facility] 07-23-2024 09:37-0400 Body weight 115.67 kg Arlen Sanchez DO Work Phone: [facility] 07-03-2024 10:07-0400 Body height 165.1 cm Shyam Dolce DPM FAC[employer]AS Work Phone: [facility] 07-03-2024 10:07-0400 Body mass index (BMI) [Ratio] 42.43 kg/m2 Shyam Dolce DPM [employer] Work Phone: [facility] 07-03-2024 10:07-0400 Body weight 115.67 kg Shyam Dolce DPM [employer] Work Phone: [facility] 07-03-2024 10:07-0400 Diastolic blood pressure 78 mm[Hg] Shyam Dolce DPM [employer] Work Phone: [facility] 07-03-2024 10:07-0400 Heart rate 85 /min Shyam Dolce DPM [employer] Work Phone: [facility] 07-03-2024 10:07-0400 Systolic blood pressure 132 mm[Hg] Shyam Dolce DPM [employer] Work Phone: [facility] 06-25-2024 14:46-0400 Body height 165.1 cm Kajal Dolce DPM [employer] Work Phone: [facility] 06-25-2024 14:46-0400 Body mass index (BMI) [Ratio] 42.43 kg/m2 Kajal Dolce DPM [employer] Work Phone: [facility] 06-25-2024 14:46-0400 Body weight 115.67 kg Kajal Dolce DPM [employer] Work Phone: [facility] 06-25-2024 14:46-0400 Diastolic blood pressure 75 mm[Hg] Kajal Dolce DPM [employer] Work Phone: [facility] 06-25-2024 14:46-0400 Heart rate 72 /min Kajal Dolce DPM [employer] Work Phone: [facility] 06-25-2024 14:46-0400 Systolic blood pressure 126 mm[Hg] Kajal Dolce DPM [employer] Work Phone: [facility] 06-19-2024 08:52-0400 Body height 165.1 cm Shyam Dolce DPM [employer] Work Phone: [facility] 06-19-2024 08:52-0400 Body mass index (BMI) [Ratio] 42.43 kg/m2 Shyam Dolce DPM [employer] Work Phone: [facility] 06-19-2024 08:52-0400 Body weight 115.67 kg Shyam Dolce DPM [employer] Work Phone: [facility] 06-19-2024 08:52-0400 Diastolic blood pressure 77 mm[Hg] Shyam Dolce DPM [employer] Work Phone: [facility] 06-19-2024 08:52-0400 Heart rate 73 /min Shyam Dolce DPM [employer]AC[employer] Work Phone: [facility] 06-19-2024 08:52-0400 Systolic blood pressure 125 mm[Hg] Shyam Dolce DPM [employer] Work Phone: [facility] 06-18-2024 10:17-0400 Body height 165.1 cm Bassam Aguilar DPM Work Phone: [facility] 06-18-2024 10:17-0400 Body mass index (BMI) [Ratio] 42.43 kg/m2 Bassam Aguilar DPM Work Phone: [facility] 06-18-2024 10:17-0400 Body weight 115.67 kg Bassam Aguilar DPM Work Phone: [facility] 06-18-2024 10:17-0400 Diastolic blood pressure 75 mm[Hg] Bassam Aguilar DPM Work Phone: [facility] 06-18-2024 10:17-0400 Heart rate 83 /min Bassam Aguilar DPM Work Phone: [facility] 06-18-2024 10:17-0400 Systolic blood pressure 125 mm[Hg] Bassam Aguilar DPM Work Phone: [facility] 04-24-2024 08:50-0400 Body height 170.2 cm Chiqui Robles MD Work Phone: [facility] 04-24-2024 08:50-0400 Body mass index (BMI) [Ratio] 42.28 kg/m2 Chiqui Robles MD Work Phone: [facility] 04-24-2024 08:50-0400 Body weight 122.47 kg Chiqui Robles MD Work Phone: [facility] 04-24-2024 08:50-0400 Diastolic blood pressure 89 mm[Hg] Chiqui Robles MD Work Phone: [facility] 04-24-2024 08:50-0400 Heart rate 61 /min Chiqui Robles MD Work Phone: [facility] 04-24-2024 08:50-0400 SaO2% (BldA) [Mass fraction] 95 % Chiqui Robles MD Work Phone: [facility] 04-24-2024 08:50-0400 Systolic blood pressure 122 mm[Hg] Chiqui Robles MD Work Phone: [facility] 02-29-2024 13:41-0400 Body height 170.2 cm Herberth Araujo MD, PhD Work Phone: [facility] 02-29-2024 13:41-0400 Body mass index (BMI) [Ratio] 42.29 kg/m2 Herberth Araujo MD, PhD Work Phone: [facility] 02-29-2024 13:41-0400 Body temperature 97.39 [degF] Herberth Araujo MD, PhD Work Phone: [facility] 02-29-2024 13:41-0400 Body weight 122.47 kg Herberth Araujo MD, PhD Work Phone: [facility] 02-29-2024 13:41-0400 Diastolic blood pressure 73 mm[Hg] Herberth Araujo MD, PhD Work Phone: [facility] 02-29-2024 13:41-0400 Heart rate 62 /min Herberth Araujo MD, PhD Work Phone: [facility] 02-29-2024 13:41-0400 SaO2% (BldA) [Mass fraction] 94 % Herberth Araujo MD, PhD Work Phone: [facility] 02-29-2024 13:41-0400 Systolic blood pressure 138 mm[Hg] Herberth Araujo MD, PhD Work Phone: [facility] 02-05-2024 12:17-0400 Body weight 124.74 kg Francoise Singletary MD Work Phone: [facility] 02-05-2024 12:17-0400 Diastolic blood pressure 70 mm[Hg] Francoise Singletary MD Work Phone: [facility] 02-05-2024 12:17-0400 Heart rate 80 /min Francoise Singletary MD Work Phone: [facility] 02-05-2024 12:17-0400 Systolic blood pressure 131 mm[Hg] Francoise Singletary MD Work Phone: [facility] 09-11-2023 11:00-0500 Body height 167.64 cm Tondra Mapus Other [facility] 09-11-2023 11:00-0500 Body mass index (BMI) [Ratio] 44.91 kg/m2 Tondra Mapus Other [facility] Other 09-11-2023 11:00-0500 Body weight 126.24 kg Tondra Mapus Other [facility] Other 09-11-2023 11:00-0500 Body weight 126.23 kg MD Scarlet Johnson Work Phone: [facility] 09-11-2023 11:00-0500 Diastolic blood pressure 82 mm[Hg] Tondra Mapus Other [facility] 09-11-2023 11:00-0500 Respiratory rate 18 /min Tondra Mapus Other [facility] Other 09-11-2023 11:00-0500 SaO2% (BldA) [Mass fraction] 99 % Tondra Mapus Other [facility] Other 09-11-2023 11:00-0500 Systolic blood pressure 153 mm[Hg] Tondra Mapus Other [facility] 08-24-2023 13:45-0500 Body height 167.64 cm Eligio Soni Other [facility] 08-24-2023 13:45-0500 Body mass index (BMI) [Ratio] 44.22 kg/m2 Eligio Soni Other [facility] Other 08-24-2023 13:45-0500 Body temperature 97.4 [degF] Eligio Soni Other [facility] Other 08-24-2023 13:45-0500 Body weight 124.29 kg Eligio Soni Other [employer] [facility] [employer] Other 08-24-2023 13:45-0500 Body weight 124.28 kg MD Scarlet Johnson Work Phone: [facility] 08-24-2023 13:45-0500 Diastolic blood pressure 60 mm[Hg] Eligio oSni Other [facility] 08-24-2023 13:45-0500 SaO2% (BldA) [Mass fraction] 97 % Eligio Soni Other [facility] Other 08-24-2023 13:45-0500 Systolic blood pressure 130 mm[Hg] Eligio Zachariah Other [facility] 03-07-2023 10:00-0400 Body height 167.64 cm Terry Kelley Other [facility] Other 03-07-2023 10:00-0400 Body mass index (BMI) [Ratio] 43.61 kg/m2 Terry Ascencion Other [facility] Other 03-07-2023 10:00-0400 Body weight 122.56 kg Terry Kimblediff Other [facility] Other 03-07-2023 10:00-0400 Diastolic blood pressure 70 mm[Hg] Terry Kelley Other [facility] Other 03-07-2023 10:00-0400 Respiratory rate 20 /min Terry Kelley Other [facility] Other 03-07-2023 10:00-0400 SaO2% (BldA) [Mass fraction] 96 % Terry Kelley Other [facility] Other 03-07-2023 10:00-0400 Systolic blood pressure 134 mm[Hg] Terry Kelley Other [facility] Other 02-14-2023 09:45-0400 Body height 172.72 cm Meenakshiboom Grant Other [facility] Other 02-14-2023 09:45-0400 Body mass index (BMI) [Ratio] 41.32 kg/m2 Tondra Mapus Other [facility] Other 02-14-2023 09:45-0400 Body weight 123.29 kg Tondra Mapus Other [facility] Other 02-14-2023 09:45-0400 Diastolic blood pressure 82 mm[Hg] Tondra Mapus Other [facility] Other 02-14-2023 09:45-0400 Respiratory rate 18 /min Tondra Mapus Other [facility] Other 02-14-2023 09:45-0400 SaO2% (BldA) [Mass fraction] 97 % Tondra Mapus Other [facility] Other 02-14-2023 09:45-0400 Systolic blood pressure 157 mm[Hg] Tondra Mapus Other [facility] Other 01-20-2023 12:15-0400 Body height 172.72 cm Carito Fitt Other [facility] Other 01-20-2023 12:15-0400 Body mass index (BMI) [Ratio] 40.71 kg/m2 Carito Fitt Other [facility] Other 01-20-2023 12:15-0400 Body weight 121.47 kg Carito Fitt Other [facility] Other 01-05-2023 11:15-0400 Body height 172.72 cm Terry Kelley Other [facility] Other 01-05-2023 11:15-0400 Body mass index (BMI) [Ratio] 40.96 kg/m2 Terry Kimblediff Other [facility] Other 01-05-2023 11:15-0400 Body weight 122.2 kg Terry Kelley Other [facility] Other 01-05-2023 11:15-0400 Diastolic blood pressure 73 mm[Hg] Terry Kimblediff Other [facility] Other 01-05-2023 11:15-0400 Respiratory rate 18 /min Terry Kimblediff Other [facility] Other 01-05-2023 11:15-0400 SaO2% (BldA) [Mass fraction] 98 % Terry Kimblediff Other [facility] Other 01-05-2023 11:15-0400 Systolic blood pressure 143 mm[Hg] Terry Kimblediff Other [facility] Other 11-24-2022 12:15-0500 Body height 172.72 cm Carito Fitt Other [facility] Other 11-24-2022 12:15-0500 Body mass index (BMI) [Ratio] 42.22 kg/m2 Carito Fitt Other [facility] Other 11-24-2022 12:15-0500 Body weight 125.96 kg Carito Fitt Other [facility] Other 11-18-2022 11:15-0500 Body height 172.72 cm Terrynikolai Kelley Other [facility] Other 11-18-2022 11:15-0500 Body mass index (BMI) [Ratio] 41.96 kg/m2 Terry Kelley Other [facility] Other 11-18-2022 11:15-0500 Body weight 125.19 kg Terry Kelley Other [facility] Other 11-18-2022 11:15-0500 Diastolic blood pressure 75 mm[Hg] Terry Kelley Other [facility] Other 11-18-2022 11:15-0500 Respiratory rate 18 /min Terry Kelley Other [facility] Other 11-18-2022 11:15-0500 SaO2% (BldA) [Mass fraction] 99 % Terry Kelley Other [facility] Other 11-18-2022 11:15-0500 Systolic blood pressure 148 mm[Hg] Terry Kelley Other [facility] Other 11-07-2022 10:15-0500 Body height 172.72 cm Tondra Mapus Other [facility] Other 11-07-2022 10:15-0500 Body mass index (BMI) [Ratio] 42.58 kg/m2 Tondra Mapus Other [facility] Other 11-07-2022 10:15-0500 Body weight 127.05 kg Tondra Mapus Other [facility] Other 11-07-2022 10:15-0500 Diastolic blood pressure 83 mm[Hg] Tondra Mapus Other [facility] Other 11-07-2022 10:15-0500 Respiratory rate 18 /min Tondra Mapus Other [facility] Other 11-07-2022 10:15-0500 SaO2% (BldA) [Mass fraction] 98 % Tondra Mapus Other [facility] Other 11-07-2022 10:15-0500 Systolic blood pressure 170 mm[Hg] Tondra Mapus Other [facility] Other 10-18-2022 15:00-0500 Body height 172.72 cm Carito Fitt Other [facility] Other 2022 16:15-0400 Body height 172.72 cm Carito Fitt Other [facility] Other 07-27-2022 12:00-0400 Body height 172.72 cm Tondra Mapus Other [facility] Other 07-27-2022 12:00-0400 Body mass index (BMI) [Ratio] 40.9 kg/m2 Tondra Mapus Other [facility] Other 07-27-2022 12:00-0400 Body weight 122.02 kg Tondra Mapus Other [facility] Other 07-27-2022 12:00-0400 Diastolic blood pressure 75 mm[Hg] Tondra Mapus Other [facility] Other 07-27-2022 12:00-0400 Respiratory rate 20 /min Tondra Mapus Other [facility] Other 07-27-2022 12:00-0400 SaO2% (BldA) [Mass fraction] 97 % Tondra Mapus Other [facility] Other 07-27-2022 12:00-0400 Systolic blood pressure 141 mm[Hg] Tondra Mapus Other [facility] Other 06-08-2022 10:45-0400 Body height 172.72 cm Carito Frandyjosiane Other [facility] Other 04-21-2022 12:00-0400 Body height 172.72 cm Tondra Mapus Other [facility] Other 04-21-2022 12:00-0400 Body mass index (BMI) [Ratio] 39.67 kg/m2 Tondra Mapus Other [facility] Other 04-21-2022 12:00-0400 Body weight 118.34 kg Tondra Mapus Other [facility] Other 04-21-2022 12:00-0400 Diastolic blood pressure 74 mm[Hg] Tondra Mapus Other [facility] Other 04-21-2022 12:00-0400 Respiratory rate 20 /min Tondra Mapus Other [facility] Other 04-21-2022 12:00-0400 SaO2% (BldA) [Mass fraction] 97 % Tondra Mapus Other [facility] Other 04-21-2022 12:00-0400 Systolic blood pressure 143 mm[Hg] Tondra Mapus Other [facility] Other 10-21-2021 12:00-0500 Body height 172.72 cm Tondra Mapus Other [facility] Other 10-21-2021 12:00-0500 Body mass index (BMI) [Ratio] 40.14 kg/m2 Tondra Mapus Other [facility] Other 10-21-2021 12:00-0500 Body weight 119.75 kg Tondra Mapus Other [facility] Other 10-21-2021 12:00-0500 Diastolic blood pressure 78 mm[Hg] Tondra Mapus Other [facility] Other 10-21-2021 12:00-0500 Respiratory rate 20 /min Tondra Mapus Other [facility] Other 10-21-2021 12:00-0500 SaO2% (BldA) [Mass fraction] 97 % Tondra Mapus Other [facility] Other 10-21-2021 12:00-0500 Systolic blood pressure 147 mm[Hg] Tondra Mapus Other [facility] Other 07-21-2021 15:45-0400 Body height 172.72 cm Morgan Kunz Other [facility] Other 07-21-2021 15:45-0400 Body mass index (BMI) [Ratio] 38.77 kg/m2 Morgan Kunz Other [facility] Other 07-21-2021 [id number] Body weight 115.67 kg Morgan Kunz Other [facility] Other 12-14-2017 15:17-0500 Body height 170.18 cm MD Scarlte Johnson Work Phone: [facility] Encounters Encounter Date Encounter Type Care Provider Facility Start: 05-21-2026 ambulatory [employer] Nanette L Karl Facil ity:[facility] Start: 09-18-2025 ambulatory [employer] Nanette L Karl Facil ity:[facility] [place] Start: 07-17-2025 ambulatory [employer] Nanette L Karl Facil ity:[facility] Start: 06-25-2025 ambulatory Kaia ramsey PhD [facility] Start: 06-24-2025 End: 06-24-[address] [facility] Start: 06-19-2025 End: 06-19-2025 ambulatory [employer] Nanette L Karl Facility:[facility] Start: 06-18-2025 End: 06-18-2025 Bamboo flowsheet Cara Joshua CCC-A Work Phone: [facility] Start: 06-18-2025 End: 06-18-2025 Bamboo flowsheet Cara Joshua CCC-A Work Phone: [facility] Start: 06-18-2025 End: 06-18-2025 Clinical Support Cara Joshua CCC-A Work Phone: [facility] Comment on above: Asymmetrical sensori neural hearing loss (Primary Dx) Start: 05-22-2025 End: 05-22-2025 Bamboo flowsmaik Aguilar DPM Work Phone: [facility] Start: 05-22-2025 End: 05-22-2025 Bamboo flowsmaik Aguilar DPM Work Phone: [facility] Start: 05-22-2025 End: 05-22-2025 Patient encounter procedure Bassam Aguilar DPM Work Phone: [facility] Comment on above: Diabetes mellitus du e to underlying condition with diabetic polyneuropathy, 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 nursing home insulin use (HCC) (Primary Dx); Pain due to onychomycosis of toenails of both feet; Venous insufficiency; Amputation of toe of right foot Start: 05-22-2025 End: 05-22-2025 ambulatory BASSAM AGUILAR Not Available Start: 05-21-2025 End: 05-21-2025 Bamboo flowsheet Gabriela Smith DPM [facility] Start: 05-21-2025 End: 05-21-2025 Bamboo flowsheet Gabriela Smith DPM [facility] Start: 05-21-2025 End: 05-21-2025 Office outpatient visit 25 minutes Gabriela Smith DPM [facility] Comment on above: Diabetes mellitus du e to underlying condition with diabetic polyneuropathy, 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 terminal make up operator insulin use (HCC) (Primary Dx); Neuropathy; Right foot pain Start: 05-21-2025 End: 05-21-2025 ambulatory GABRIELA SMITH Not Available Start: 05-20-2025 End: 05-20-2025 ambulatory [employer] Nanette Barajas Facility:[facility] Start: 05-19-2025 End: 05-19-2025 Telephone encounter Gabriela Smith DPM [facility] Start: 05-15-2025 End: 06-02-2025 ambulatory Haider Hickman Facility:[facility] Start: 05-14-2025 End: 05-14-2025 ambulatory Morgan Arnold PT Work Phone: [facility] Comment on above: Cervicalgia (Primary Dx); Imbalance; Unsteadiness on feet; Frequent falls Start: 05-14-2025 End: 05-14-2025 Bamboo flowsheet Morgan Arnold PT Work Phone: [facility] Start: 05-14-2025 End: 05-14-2025 Bamboo flowsheet Morgan Arnold PT Work Phone: [facility] Start: 05-07-2025 End: 05-07-2025 ambulatory Morgan Arnold PT Work Phone: [facility] Comment on above: Cervicalgia (Primary Dx); Imbalance; Unsteadiness on feet; Frequent falls Start: 05-07-2025 End: 05-07-2025 Bamboo flowsheet Morgan Arnold PT Work Phone: [facility] Start: 05-07-2025 End: 05-07-2025 Bamboo flowsheet Morgan Arnold PT Work Phone: [facility] Start: 05-01-2025 End: 05-01-2025 Office outpatient visit 25 minutes Gabriela Smith DPM Work Phone: [facility] Comment on above: Diabetes mellitus du e to underlying condition with diabetic polyneuropathy, 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 terminal make up operator insulin use (HCC) (Primary Dx); Neuropathy; Right foot pain Start: 05-01-2025 End: 05-01-2025 ambulatory GABRIELA SMITH Not Available Start: 04-30-2025 End: 04-30-2025 Office outpatient visit 25 minutes David Wong MD Work Phone: [facility] Comment on above: Imbalance (Primary D x); Asymmetric SNHL (sensorineural hearing loss); Cochlear hydrops of right ear Start: 04-30-2025 End: 04-30-2025 ambulatory DAVID WONG Not Available Start: 04-30-2025 End: 04-30-2025 Bamboo flowsheet David Wong MD Work Phone: [facility] Start: 04-30-2025 End: 04-30-2025 Bamboo flowsheet David Wong MD Work Phone: [facility] Start: 04-29-2025 End: 04-29-2025 ambulatory Morgan Arnold PT Work Phone: [facility] Comment on above: Cervicalgia (Primary Dx); Imbalance; Unsteadiness on feet; Frequent falls Start: 04-23-2025 End: 04-23-2025 Bamboo flowsheet Morgan Arnold PT Work Phone: [facility] Start: 04-23-2025 End: 04-23-2025 Bamboo flowsheet Morgan Arnold PT Work Phone: [facility] Start: 04-23-2025 End: 04-23-2025 ambulatory Morgan Arnold PT Work Phone: [facility] Comment on above: Cervicalgia (Primary Dx); Imbalance; Unsteadiness on feet; Frequent falls Start: 04-15-2025 End: 04-15-2025 Bamboo flowsheet Morgan Arnold PT Work Phone: [facility] Start: 04-15-2025 End: 04-15-2025 Bamboo flowsheet Morgan Arnold PT Work Phone: [facility] Start: 04-15-2025 End: 04-15-2025 ambulatory Morgan Arnold PT Work Phone: [facility] Comment on above: Cervicalgia (Primary Dx); Imbalance; Unsteadiness on feet; Frequent falls Start: 04-14-2025 End: 04-14-2025 ambulatory [employer] Nanette L Karl Facility:[facility] Start: 04-09-2025 End: 05-05-2025 ambulatory [employer] Nanette L Karl Facility:[facility] Start: 04-08-2025 End: 04-08-2025 Clinisync Result Encounter David Wong MD Work Phone: [facility] External Department Unsolicited Start: 04-08-2025 End: 04-08-2025 Clinisync Result Encounter David Wong MD Work Phone: [facility] External Department Unsolicited Start: 04-03-2025 End: 04-03-2025 ambulatory Deo Hickman Work Phone: [facility] Work Phone: Start: 04-03-2025 End: 04-03-2025 Patient encounter procedure Marce Bowen [facility] Work Phone: Start: 03-31-2025 End: 03-31-2025 Bamboo flowsheet David Wong MD Work Phone: [facility] Start: 03-31-2025 End: 03-31-2025 Bamboo flowsmaik Wong MD Work Phone: [facility] Start: 03-31-2025 End: 03-31-2025 Office outpatient new 45 minutes David Wong MD Work Phone: [facility] Comment on above: Imbalance (Primary D x); Asymmetric SNHL (sensorineural hearing loss); Class 3 severe obesity due to excess calories without serious comorbidity with body mass index (BMI) of 45.0 to 49.9 in adult ([facility]-HCC); Claustrophobia Start: 03-31-2025 End: 03-31-2025 ambulatory DAVID WONG Not Available Start: 03-28-2025 End: 03-28-2025 Bamboo flowsheet Cara Joshua [facility] Work Phone: [facility] Start: 03-28-2025 End: 03-28-2025 Bamboo flowsmaik Joshua [facility] Work Phone: [facility] Start: 03-28-2025 Preprocedural examin ation done David Wong MD Work Phone: [facility] Start: 03-28-2025 End: 03-28-2025 Clinical Support Cara Joshua [facility] Work Phone: [facility] Comment on above: Asymmetrical sensori neural hearing loss (Primary Dx); Tinnitus, bilateral; Balance problem Start: 03-26-2025 End: 03-26-2025 Patient encounter procedure Aldo Middleton [employer] Work Phone: Start: 03-20-2025 End: 03-20-2025 ambulatory MARY [facility] Start: 03-19-2025 End: 03-19-2025 ambulatory Deo Hickman Work Phone: [facility] Work Phone: Start: 03-19-2025 End: 03-19-2025 Patient encounter procedure Deo Hickman Work Phone: [facility] [place] Work Phone: Start: 03-14-2025 ambulatory Nanette L Karl Facility: [facility] [place] Start: 03-13-2025 End: 03-13-2025 Patient encounter procedure Deo Hickman Work Phone: [facility] Work Phone: Start: 03-13-2025 End: 03-13-2025 ambulatory Deo Hickman Work Phone: [facility] Work Phone: Start: 03-13-2025 End: 03-13-2025 ambulatory [facility] Work Phone: Start: 03-13-2025 End: 03-13-2025 Patient encounter procedure [facility] Work Phone: Start: 03-13-2025 End: 03-13-2025 ambulatory Haider Hickman Facility:[facility] Start: 03-11-2025 End: 04-02-2025 ambulatory [employer] Nanette L Karl Facility:[facility] Start: 03-06-2025 End: 03-06-2025 Bamboo flowsheet Bassam Aguilar DPM Work Phone: [facility] Start: 03-06-2025 End: 03-06-2025 Bamboo flowsheet Bassam Aguilar DPM Work Phone: [facility] Start: 03-06-2025 End: 03-06-2025 ambulatory [facility] Facility:[facility] Start: 03-06-2025 End: 03-06-2025 Patient encounter procedure Bassam Aguilar DPM Work Phone: [facility] Comment on above: Diabetes mellitus du e to underlying condition with diabetic polyneuropathy, 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 nursing home insulin use ([facility]) (Primary Dx); Pain due to onychomycosis of toenails of both feet; Venous insufficiency; Amputation of toe of right foot ([facility]/HCC) Start: 03-06-2025 End: 03-06-2025 ambulatory BASSAM AGUILAR Not Available Start: 02-24-2025 ambulatory Nanette Barajas Facility: [id number] Start: 02-18-2025 End: 02-18-2025 ambulatory Haider Hickman Facility:[facility] Joc[facility] silva Start: 02-10-2025 End: 02-10-2025 ambulatory Miguelangel Mac MD Facility: [facility] Start: 02-04-2025 End: 02-04-2025 ambulatory Haider Hickman Facility:[facility] Start: 01-20-2025 End: 01-20-2025 ambulatory Haider Hcikman Facility:[facility] Jocelyn silva Start: 01-20-2025 End: 01-20-2025 ambulatory Miguelangel Mac MD Facility: [facility] Start: 01-13-2025 End: 01-13-2025 ambulatory Miguelangel Mac MD Facility: [facility] Start: 01-01-2025 End: 01-01-2025 ambulatory Tomi Maria Facility:[facility] Start: 12-19-2024 End: 12-19-2024 ambulatory HAIDER HICKMAN [facility] Start: 12-18-2024 End: 12-18-2024 ambulatory [facility] Start: 12-18-2024 End: 12-18-2024 Encounter for other preprocedural examination [facility] Start: 12-04-2024 End: 12-04-2024 ambulatory Nanette Barajas Facility:[facility] Start: 12-04-2024 End: 12-04-2024 ambulatory Krishna Talal Sarmini Facility:[facility] Start: 12-02-2024 End: 12-02-2024 ambulatory Miguelangel Mac MD Facility: [facility] Start: 11-27-2024 End: 11-27-2024 ambulatory Krishna Talal Sarmini Facility:[facility] Start: 11-18-2024 End: 11-18-2024 ambulatory Haider Hickman Facility:[facility] Start: 11-12-2024 End: 11-12-2024 ambulatory Haider Hickman Facility:[facility] Start: 11-07-2024 ambulatory Krishna Dulcemini Facili ty:[facility] Start: 11-06-2024 ambulatory Araceli BERMUDEZ Facility : [facility] Start: 11-04-2024 End: 11-04-2024 ambulatory Haider Hickman Facility:[facility] Start: 10-24-2024 End: 10-24-2024 ambulatory Haider Hickman Facility:[facility] Start: 10-17-2024 End: 10-17-2024 Bamboo flowsheet Bassam Aguilar DPM Work Phone: [facility] Start: 10-17-2024 End: 10-17-2024 Henrio flowsheet Bassam Aguilar DPM Work Phone: [facility] Start: 10-17-2024 End: 10-17-2024 Patient encounter procedure Bassam Aguilar DPM Work Phone: [facility] Comment on above: Diabetes mellitus du e to underlying condition with diabetic polyneuropathy, 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 terminal make up operator insulin use ([facility]) (Primary Dx); Pain due to onychomycosis of toenails of both feet; Venous insufficiency Start: 10-17-2024 End: 10-17-2024 ambulatory BASSAM AGUILAR Not Available Start: 10-15-2024 End: 10-15-2024 ambulatory [facility] Start: 09-09-2024 End: 09-09-2024 ambulatory Haider Hickman Facility:[facility] Start: 09-09-2024 End: 09-09-2024 ambulatory Miguelangel Mac MD Facility:[facility] Start: 09-02-2024 End: 09-02-2024 ambulatory Miguelangel Mac MD Facility:[facility] Start: 08-29-2024 End: 08-29-2024 Bamboo flowsheet Matthew May DO Work Phone: [facility] Start: 08-29-2024 End: 08-29-2024 Bamboo flowsheet Matthew May DO Work Phone: [facility] Start: 08-29-2024 End: 08-29-2024 Office outpatient new 45 minutes Matthew May DO Work Phone: [facility] Comment on above: Right foot pain (Brie jesse Dx); Diabetic polyneuropathy associated with type 2 diabetes mellitus ([facility]) Start: 08-29-2024 End: 08-29-2024 ambulatory MATTHEW MAY Not Available Start: 08-15-2024 End: 08-15-2024 ambulatory [facility] Start: 08-14-2024 End: 08-14-2024 ambulatory HAIDER HICKMAN Facility:[facility] Start: 08-14-2024 End: 08-14-2024 Patient encounter procedure [...] condition with diabetic polyneuropathy, 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 terminal make up operator insulin use (CMS/HCC); Pain due to onychomycosis of toenails of both feet Start: 08-08-2024 End: 08-08-2024 ambulatory BASSAM AGUILAR Not Available Start: 08-07-2024 End: 08-07-2024 ambulatory [facility] Start: 08-06-2024 End: 08-06-2024 Bamboo flowsheet [...] Start: 08-01-2024 End: 08-01-2024 ambulatory Haider Hickman Facility:[facility] Start: 07-31-2024 End: 07-31-2024 Bamboo [...] condition with diabetic polyneuropathy, 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 terminal make up operator insulin use ([facility]); Amputation of right great toe ([facility]) Start: 07-31-2024 End: 07-31-2024 ambulatory SHYAM [...] polyneuropathy, 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 nursing home insulin use ([facility]) Start: 07-24-2024 End: 07-24-2024 ambulatory SHYAM D DOLCE Not Available Start: 07-23-2024 End: 07-23-2024 Bamboo flowsheet Arlen Sanchez DO Work Phone: [facility] Start: 07-23-2024 End: 07-23-2024 Bamboo flowsheet Arlen Sanchez DO Work Phone: [facility] Start: 07-23-2024 End: 07-23-2024 Office [...] Change Request Start: 07-19-2024 End: 07-19-2024 ambulatory [facility] Start: 07-17-2024 End: 07-18-2024 ambulatory Chiqui Robles MD Work Phone: [facility] Comment on above: Medication Question Start: 07-04-2024 [...] 07-01-2024 End: 07-01-2024 Bamboo flowsheet Chelle Brandon MATERIAL PLANNING ANALYST Work Phone: [facility] Start: 07-01-2024 End: 07-01-2024 Bamboo flowsheet Chelle Brandon MATERIAL PLANNING ANALYST Work Phone: [facility] Start: 07-01-2024 End: 07-01-2024 Office outpatient visit 15 minutes Chelle Brandon MATERIAL PLANNING ANALYST Work Phone: [facility] Comment on above: Left shoulder pain, unspecified chronicity (Primary Dx); Arthritis of left acromioclavicular joint; Glenohumeral arthritis, left; Impingement of left shoulder; Internal derangement of left shoulder Start: 07-01-2024 End: 07-01-2024 ambulatory CHELLE BRANDON Not Available Start: 06-26-2024 End: 06-26-[address] [facility] Start: 06-25-2024 End: 06-25-2024 ambulatory KAJAL R DOLCE Not Available Start: 06-25-2024 End: 06-25-2024 Office outpatient visit 15 minutes Kajal R Dolce DPM FACFAS Work Phone: [facility] Comment on above: 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); Diabetes 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, 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 terminal make up operator insulin use ([facility]); Venous insufficiency; Non-pressure chronic ulcer of other part of right lower leg with fat layer exposed ([facility]) Start: 06-25-2024 End: 06-25-2024 Bamboo flowsheet Kajal R Dolce DPM FACFAS Work Phone: [facility] Start: 06-25-2024 End: 06-25-2024 Bamboo flowsheet Kajal R Dolce DPM FACFAS Work Phone: [facility] Start: 06-19-2024 End: 06-19-2024 Telephone encounter Shyam Freeman DPM FACFAS Work Phone: [facility] Start: 06-19-2024 End: 06-19-2024 ambulatory Kajal R Dolce Facility:[facility] Start: 06-19-2024 End: 06-19-2024 Office outpatient visit 25 minutes Shyam Freeman DPM FACFAS Work Phone: [facility] Comment on above: Acquired deformity o f right toe Start: 06-18-2024 End: 06-18-2024 Bamboo flowsheet Bassam Aguilar DPM Work Phone: [facility] Start: 06-18-2024 End: 06-18-2024 Bamboo flowsheet Bassam Aguilar DPM Work Phone: [facility] Start: 06-18-2024 End: 06-18-2024 Office outpatient visit 15 minutes Bassam Aguilar DPM Work Phone: [facility] Comment on above: 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); Diabetes 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, 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 nursing home insulin use ([facility]); Amputation of right great toe ([facility]) Start: 06-12-2024 End: 06-12-2024 Bamboo flowsheet Chelle Brandon MATERIAL PLANNING ANALYST Work Phone: [facility] Start: 06-12-2024 End: 06-12-2024 Bamboo flowsheet Chelle Brandon MATERIAL PLANNING ANALYST Work Phone: [facility] Start: 06-12-2024 End: 06-12-2024 ambulatory [facility] Facility:[facility] Start: 06-12-2024 End: 06-12-2024 Office outpatient visit 25 minutes Chelle Brandon MATERIAL PLANNING ANALYST Work Phone: [facility] Comment on above: Left shoulder pain, unspecified chronicity (Primary Dx); Arthritis of left acromioclavicular joint; Glenohumeral arthritis, left; Impingement of left shoulder Start: 06-07-2024 End: 06-07-2024 [facility] Britney Hyde PhD Work Phone: Pain Recovery Comment on above: Adjustment disorder with depressed mood (Primary Dx); Complex regional pain syndrome type II of right lower limb; Chronic toe pain, right foot Start: 06-05-2024 End: 06-05-2024 ambulatory [facility] Facility:[facility] Start: 06-03-2024 End: 06-03-2024 Telephone encounter Chelle Brandon MATERIAL PLANNING ANALYST Work Phone: [facility] Start: 05-23-2024 ambulatory Chiqui chapa MD Work Phone: Neurology Pain Comment on above: taking memantine HCL Start: 05-22-2024 End: 05-22-2024 ambulatory DAVID ACOSTA Facility:[facility] Jocelyn silva Start: 05-07-2024 ambulatory Morgan Trinidad Therapist Work Phone: Pain Recovery Comment on above: next step, resources Start: 05-07-2024 E-mail encounter fro m caregiver Morgan Trinidad Therapist Work Phone: Pain Recovery Start: 05-06-2024 End: 05-06-2024 [facility] Morgan Trinidad Therapist Work Phone: Pain Recovery Comment on above: Adjustment disorder with depressed mood (Primary Dx); Complex regional pain syndrome type II of right lower limb; Chronic toe pain, right foot Start: 04-24-2024 End: 04-24-2024 ambulatory HAIDER HICKMAN Facility:[facility] Start: 04-24-2024 End: 04-24-2024 Patient encounter procedure Chiqiu Robles MD Work Phone: Neurology Pain Comment on above: Adjustment disorder with depressed mood (Primary Dx); Complex regional pain syndrome type II of right lower limb; Chronic toe pain, right foot; Class 3 severe obesity with serious comorbidity and body mass index (BMI) of 40.0 to 44.9 in adult, unspecified obesity type (HCC) Start: 04-03-2024 End: 04-03-2024 ambulatory HERBERTH A VAN Facility:[facility] Start: 03-19-2024 Telephone encounter Herberth meyers MD, PhD Work Phone: Pain Management Comment on above: Nurse Triage Call Start: 03-08-2024 End: 03-08-2024 ambulatory Haider Hickman Facility:[facility] Start: 02-29-2024 End: 02-29-2024 ambulatory HERBERTH A MEKMARYSE Facility:[facility] Start: 02-29-2024 End: 02-29-2024 Patient encounter procedure [...] in adult, unspecified obesity type (HCC) Start: 02-06-2024 Telephone encounter Francoise hemphill MD Work Phone: Pain Management Start: 02-05-2024 End: 02-05-2024 ambulatory FRANCOISE SINGLETARY Facility:[facility] Start: 02-05-2024 End: 02-05-2024 Patient encounter procedure Francoise Singletary MD Work Phone: Pain Management Comment on above: Chronic toe pain, ri ght foot (Primary Dx); Painful diabetic neuropathy (HCC); Class 3 severe obesity with serious comorbidity and body mass index (BMI) of 40.0 to 44.9 in adult, unspecified obesity type (HCC) Start: 09-12-2023 End: 09-12-2023 ambulatory Tondra Mapus Other [employer] Other Start: 09-12-2023 Telephone encounter Tondra Mapus [facility] Start: 09-11-2023 (DM) Diabetes Tondra Mapus [facility] Start: 09-11-2023 End: 09-11-2023 ambulatory MD Scarlet Johnson Work Phone: [employer] [facility] [employer] Other Start: 09-11-2023 End: 09-11-2023 Discharged Recurring MD Scarlet Johnson Work Phone: [facility] Work Phone: Start: 09-11-2023 End: 09-11-2023 Patient encounter procedure MD Scarlet Johnson Work Phone: [facility] Work Phone: Start: 08-24-2023 End: 08-24-2023 Patient encounter procedure MD Scarlet Johnson Work Phone: [facility] Start: 08-24-2023 End: 08-24-2023 ambulatory MD Scarlet Johnson Work Phone: [facility] Work Phone: Start: 08-24-2023 Office outpatient ne w 60 minutes Eligio Soni [facility] Start: 08-24-2023 End: 08-24-2023 Patient encounter procedure MD Scarlet Johnson Work Phone: [facility] Work Phone: Start: 06-14-2023 End: 06-14-2023 ambulatory Tondra Mapus Other [employer] Other Start: 06-14-2023 Telephone encounter Tondra Mapus [facility] Start: 06-09-2023 End: 06-09-2023 ambulatory Carito West Other [employer] Other Start: 06-09-2023 Nursing evaluation o f patient and report Carito West [facility] Start: 06-09-2023 Registered Recurring MD Scarlet franks Work Phone: [facility] Work Phone: Start: 05-31-2023 End: 05-31-2023 ambulatory Tondra Mapus Other [employer] Other Start: 05-31-2023 Telephone encounter Tondra Mapus [facility] Start: 03-07-2023 End: 03-07-2023 ambulatory Terry Kelley Other [employer] Other Start: 03-07-2023 Follow-up encounter Terry Alston [facility] Start: 02-17-2023 End: 02-17-[address] MERT WOODARD . Facility:[facility] Start: 02-14-2023 (DM) Diabetes Tondra Juanitaus [facility] Start: 02-14-2023 End: 02-14-2023 ambulatory Tondra Mapus Other [employer] Other Start: 01-20-2023 ([facility] RD FU) [facility] F/ U Registerd Consultant In Ergonomics And Safety Carito West [facility] Start: 01-20-2023 End: 01-20-2023 ambulatory Carito West Other [employer] Other Start: 01-05-2023 End: 01-05-2023 ambulatory Terry Kelley Other [employer] Other Start: 01-05-2023 Follow-up encounter Terry moreno [facility] Start: 12-30-2022 End: 12-31-2022 ambulatory MARY APARICIO Facility:[facility] Start: 12-29-2022 End: 12-30-[address] BRITTNY MORALES Facility:[facility] Start: 12-21-2022 End: 01-28-[address] SCARLET JOHNSON . Facility:[facility] Start: 12-09-[address] SCARLET JOHNSON . Facil ity:[facility] Start: 12-08-2022 End: 12-09-[address] MORGAN ROJO Facility:[facility] Start: 11-25-2022 End: 11-26-[address] TERRY KELLEY Facility:[facility] Start: 11-24-2022 ([facility] WMNI) WMN Init ial Provider Carito West [facility] Start: 11-24-2022 End: 11-24-2022 ambulatory Carito West Other [employer] Other Start: 11-22-2022 End: 11-22-2022 ambulatory Tondra Juanitaus Other [employer] Other Start: 11-22-2022 Nursing evaluation o f patient and report Tondrboom Middleton [facility] Start: 11-18-2022 End: 11-18-2022 ambulatory Terry Ascencion Other [employer] Other Start: 11-18-2022 Nutrition therapy Terry Kelley [facility] Start: 11-08-2022 End: 11-09-[address] SCARLET JOHNSON . Facility:[facility] Start: 11-07-2022 (DM) Diabetes Tondra Emi [facility] Start: 11-07-2022 End: 11-07-2022 ambulatory Tondra Juanitaus Other [employer] Other Start: 10-18-2022 (RD) Paver Installer Dawn Fitt [facility] Start: 10-18-2022 End: 10-18-2022 ambulatory Carito West Other [employer] Other Start: 08-18-2022 End: 08-19-[address] BRITTNY MORALES Facility:[facility] Start: 2022 ([facility] DB FU) [facility] Diabetes F/U Carito West [facility] Start: 2022 End: 08-11-[address] ARACELI BERMUDEZ [employer] Other Start: 07-29-2022 End: 07-30-[address] SCARLET JOHNSON . Facility:[facility] Start: 07-27-2022 (DM) Diabetes Tondra Emi [facility] Start: 07-27-2022 End: 07-27-2022 ambulatory Tondra Juanitaus Other [employer] Other Start: 06-08-2022 (Consultant In Ergonomics And Safety) Monika Alston [facility] Start: 06-08-2022 End: 06-08-2022 ambulatory Carito West Other [employer] Other Start: 04-21-2022 (DM) Diabetes Tondra Mapus [facility] Start: 04-21-2022 End: 04-21-2022 ambulatory Tondra Mapus Other [employer] Other Start: 04-21-2022 Telephone encounter Tondra Mapus [facility] Start: 04-07-2022 End: 04-08-[address] SCARLET JOHNSON . Facility: Start: 10-21-2021 (DM) Diabetes Tondra Mapus [facility] Start: 10-21-2021 End: 10-21-2021 ambulatory Tondra Mapus Other [employer] Other Start: 07-21-2021 Office outpatient ne w 45 minutes Morgan Kunz [facility] Procedures Date Procedure Procedure Detail Performing Clinician Start: 06-11-2025 End: 06-11-2025 Psychotherapy w/patient 60 minutes Kaia oTrres PhD Work Phone: Start: 05-28-2025 End: 05-28-2025 Psychotherapy w/patient 60 minutes Kaia Torres PhD Work Phone: Start: 05-14-2025 End: 05-14-2025 Psychiatric diagnostic evaluation Kaia Torres PhD Work Phone: Start: 04-08-2025 MR HEAD/BRAIN WO CON Hi joselin Wong MD Work Phone: Start: 03-28-2025 AUDITORY FUNCTION TESTS Cara Joshua CCC-A Work Phone: Start: 03-13-2025 X-ray of lumbar spin e, six views including bending views Deo Hickman Work Phone: Start: 06-19-2024 Radex foot complete minimum 3 views Shyam Freeman DPM FAC[facility]AS Work Phone: Start: 06-12-2024 Arthrocentesis aspir &/inj major jt/bursa w/o us Chelle Brandon MATERIAL PLANNING ANALYST Work Phone: Start: 08-24-2023 Duplex scan of lower limb veins MD Scarlet Johnson Work Phone: Plan of Treatment Date Care Activity Detail Author Start: 08-20-2025 End: 08-20-2025 Patient encounter procedure 08/20/2025 2:45 PM EST Office Visit [facility] [address] [place] [phone] Gabriela Smith DPM [address] [place] [address] [facility] Start: 08-07-2025 End: 08-07-2025 Patient encounter procedure 08/07/2025 10:00 AM EDT Procedure Visit [facility] [address] [facility] [address] [place] [phone] Bassam Aguilar, DPM [address] [facility] [address] [place] [address] [facility] Start: 07-23-2025 [facility] Work Phone: Start: 07-23-2025 ambulatory Ambulatory Facility:[facility] Start: 07-09-2025 [facility] Work Phone: Start: 06-25-2025 [facility] Work Phone: Start: 06-18-2025 End: 06-18-2025 Clinical Support [facility] Comment on above: Arrived Start: 06-11-2025 [facility] Work Phone: Start: 06-09-2025 Influenza vaccination Influenza Vaccine (#1) [facility] Start: 05-28-2025 End: 05-28-2025 [facility] Work Phone: Start: 05-22-2025 End: 05-22-2025 Patient encounter procedure [facility] Comment on above: Diabetes mellitus due to underlying cond ition with diabetic polyneuropathy, 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 terminal make up operator insulin use (HCC) (Primary Dx); Pain due to onychomycosis of toenails of both feet; Venous insufficiency Start: 05-21-2025 End: 05-21-2025 Patient encounter procedure [facility] Comment on above: Arrived Start: 05-15-2025 End: 05-15-2025 Patient encounter procedure 05/15/2025 9:20 AM EDT Procedure Visit [facility] [address] [facility] [address] [place] [phone] Bassam Aguilar DPM [address] [facility] [address] [place] [address] [facility] Start: 05-14-2025 End: 05-14-2025 ambulatory [facility] Start: 05-14-2025 [facility] Work Phone: Start: 05-07-2025 End: 05-07-2025 ambulatory [facility] Comment on above: Cervicalgia (Primary Dx); Imbalance; Unsteadiness on feet; Frequent falls Start: 05-01-2025 End: 05-01-2025 Patient encounter procedure 05/01/2025 10:00 AM EDT Office Visit [facility] [address] [place] [phone] Gabriela Smith DPM [address] [place] [address] [facility] Start: 04-30-2025 End: 04-30-2025 Patient encounter procedure [facility] Comment on above: Arrived Start: 04-29-2025 End: 04-29-2025 ambulatory 04/29/2025 1:00 PM EDT Treatment [facility] [address] [place] [phone] Morgan Arnold, PT [address] [place] [address] [facility] Start: 04-23-2025 End: 04-23-2025 ambulatory 04/23/2025 1:00 PM EDT Treatment [facility] [address] [place] [phone] Morgan Arnold, PT [address] [place] [phone] [facility] Start: 04-15-2025 End: 04-15-2025 ambulatory [facility] Comment on above: Cervicalgia (Primary Dx); Imbalance; Unsteadiness on feet; Frequent falls; Vestibular dysfunction of both ears Start: 03-31-2025 End: 03-31-2025 Patient encounter procedure [facility] Comment on above: Arrived Start: 03-28-2025 End: 03-28-2025 Clinical Support [facility] Comment on above: Arrived Start: 03-13-2025 Patient referral [facility] Work Phone: Start: 03-06-2025 End: 03-06-2025 Patient encounter procedure 03/06/2025 9:10 AM EDT Procedure Visit [facility] [address] [address] Bassam Aguilar, DPSherrell [address] [facility] [address] [place] [address] Diabetes 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, 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 terminal make up operator insulin use (CMS/HCC) (Primary Dx); Pain due to onychomycosis of toenails of both feet; Venous insufficiency; Amputation of toe of right foot (CMS/HCC) [facility] Comment on above: Diabetes mellitus due to underlying cond ition with diabetic polyneuropathy, 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 nursing home insulin use (CMS/HCC) (Primary Dx); Pain due to onychomycosis of toenails of both feet; Venous insufficiency; Amputation of toe of right foot ([facility]/HCC) Start: 02-03-2025 ambulatory Ambulatory Facility:[facility] Start: 01-21-2025 End: 01-21-2025 Patient encounter procedure 01/21/2025 3:10 PM EDT Office Visit [facility] [address] [place] [phone] Patricia Morris, PA [address] [place] [address] [facility] Start: 12-26-2024 End: 12-26-2024 Patient encounter procedure 12/26/2024 11:00 AM EDT Procedure Visit [facility] [address] [facility] [address] [place] [address] Bassam Aguilar, AUGUSTIN [address] [facility] [address] [place] [address] [facility] Start: 10-17-2024 End: 10-17-2024 Patient encounter procedure [facility] Comment on above: Diabetes mellitus due to underlying cond ition with diabetic polyneuropathy, 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 terminal make up operator insulin use ([facility]) (Primary Dx); Pain due to onychomycosis of toenails of both feet; Venous insufficiency Start: 08-29-2024 End: 08-29-2024 Patient encounter procedure 08/29/2024 9:30 AM EST Office Visit [facility] [address] [place] [address] Matthew May, [address] [place] [address] Arrived [facility] Comment on above: Arrived Start: 08-27-2024 End: 08-27-2024 Patient encounter procedure 08/27/2024 3:15 PM EST Office Visit [facility] [address] [place] [address] Maria Guadalupe Gayle DO [address] [place] [address] [address] Start: 08-14-2024 End: 08-14-2024 Patient encounter procedure 08/14/2024 10:00 AM EST Office Visit [facility] [address] [facility] [place] [address] Chiqui Robles MD [address] [place], [place] [id number] 1 Month Follow Up Neurology Pain Comment on above: 1 Month Follow Up Start: 2024 RSV Vaccine (1 - 1-dose 75+ series) RSV Vaccine (1 - 1-dose 75+ series) [facility] Start: 08-08-2024 End: 08-08-2024 Patient encounter procedure [facility] Comment on above: Diabetes mellitus due to underlying cond ition with diabetic polyneuropathy, 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 terminal make up operator insulin use (CMS/HCC) (Primary Dx); Pain due to onychomycosis of toenails of both feet; Amputation of toe of right foot (CMS/HCC) Start: 08-06-2024 End: 08-06-2024 Patient encounter procedure 08/06/2024 9:45 AM EDT Office Visit [facility] [address] [place] [phone] Khai Heard DO [address] [place] [address] [facility] Start: 07-31-2024 End: 07-31-2024 [...] PODIATRY [address] [place] [address] Bassam Aguilar, DPM [address] [facility] [address] [place] [address] [facility] Start: 07-09-2024 End: 07-09-2024 Patient encounter procedure 07/09/2024 9:45 AM EDT Office Visit [facility] [address] [place] [address] Arlen Sanchez DO [address] [facility] [address] [place] [address] [facility] Start: 07-03-2024 End: 07-03-2024 Professional / ancillary services management 07/03/2024 2:00 PM EDT Ancillary Procedure [facility] [address] [place] [phone] [facility] Start: 07-03-2024 End: 07-03-2024 Patient encounter procedure [facility] Comment on above: Arrived Start: 07-02-2024 End: 07-02-2024 Professional / ancillary services management 07/02/2024 10:15 AM EDT Ancillary Procedure [facility] [address] [place] [address] [facility] Start: 07-01-2024 End: 07-01-2025 MR Shoulder - left WO contrast MR shoulder left wo IV contrast Imaging Routine Internal derangement of left shoulder Expected: 07/01/2024 (Approximate), Expires: 07/01/2025 [facility] Work Phone: Comment on above: Expected: 07/01/2024 (Approximate), Expi res: 07/01/2025 Start: 07-01-2024 End: 07-01-2024 Patient encounter procedure [facility] Comment on above: Left shoulder pain, unspecified chronici ty (Primary Dx); Arthritis of left acromioclavicular joint; Glenohumeral arthritis, left; Impingement of left shoulder Start: 06-25-2024 End: 06-25-2024 Patient encounter procedure 06/25/2024 2:20 PM EDT Office Visit [facility] [address] [place] [phone] Kajal Freeman, DPM FAC[facility]AS [address] [facility] [place] [address] [facility] Start: 06-24-2024 End: 06-24-2024 Patient encounter procedure 06/24/2024 9:15 AM EDT Office Visit [facility] [address] [facility] [address] [place] [phone] Chelle Brandon NP [address] [place] [address] [facility] Start: 06-20-2024 End: 06-20-2024 Patient encounter procedure 06/20/2024 12:20 PM EDT Procedure Visit [facility] EX[facility] DEP Shyam Freeman, DPM FACFAS [address] [facility] [place] [address] [facility] Start: 06-19-2024 End: 06-19-2024 Patient encounter procedure 06/19/2024 8:30 AM EDT Office Visit [facility] [address] [place] [address] Shyam Freeman, DPM FACFAS [address] [facility] [place] [address] [facility] Start: 06-12-2024 End: 06-12-2024 Patient encounter procedure [facility] Comment on above: Left shoulder pain, unspecified chronici ty (Primary Dx); Arthritis of left acromioclavicular joint; Glenohumeral arthritis, left Start: 06-09-2024 Covid-19 Vaccine ( season) Covid-19 Vaccine ( season) [facility] Start: 06-09-2024 Influenza vaccination [facility] Start: 06-07-2024 End: 06-07-2024 ambulatory 06/07/2024 12:30 PM EDT [facility] [address] [place] [address] Britney Hyde, PhD [address] [place] [address] [facility] Comment on above: [facility] Start: 05-06-2024 End: 05-06-2024 ambulatory 05/06/2024 9:00 AM EDT [facility] [address] [place] [address] Morgan Trinidad, Therapist [address] [place] [address] [facility] Pain Recovery Comment on above: PAIN PSYCH Start: 04-17-2024 End: 04-17-2024 Patient encounter procedure 04/17/2024 10:00 AM EDT Office Visit Pain Management [address] [place] [address] Eufemia Ortiz, PA-C [address] [place] [address] SUTURAL REMOVAL Pain Management Comment on above: SUTURAL REMOVAL Start: 04-03-2024 End: 04-03-2024 Admission to same day surgery center 04/03/2024 10:00 AM EDT - 04/03/2024 11:05 AM EDT Surgery Pain Management [address] [place] [address] Herberth Araujo MD, PhD [address] [place] [address] Right L4 and L5 DRG Trial Pain [...] 10:00 AM EDT Hospital Encounter Pain Management [address] [place] [address] Herberth Araujo MD, PhD [address] [place], [place] [id number] Chronic toe pain, right foot [M79.674, G89.29], Complex regional pain syndrome type II of right lower limb [G57.71] Pain Management Comment on above: Chronic toe pain, right foot [M79.674, G 89.29], Complex regional pain syndrome type II of right lower limb [G57.71] Start: 10-09-2023 Advance Directive Discussion Advance Directive Discussion [facility] Start: 10-09-2023 Behavioral Health Screening Behavioral Health Screening [facility] Start: 06-09-2023 Covid-19 Vaccine ( season) Covid-19 Vaccine ( season) [facility] Start: 10-16-2019 Pneumococcal Vaccine: 65+ Years (2 of 2 - PCV) Pneumococcal Vaccine: 65+ Years (2 of 2 - PCV) [facility] Start: 2014 Pneumococcal Vaccine: 65+ (1 of 1 - PCV) Pneumococcal Vaccine: 65+ (1 of 1 - PCV) [facility] Start: 2009 RSV Vaccine (1 - 1-dose 60+ series) RSV Vaccine (1 - 1-dose 60+ series) [facility] Start: 2009 RSV Vaccine (1 - Risk 60-74 years 1-dose series) RSV Vaccine (1 - Risk 60-74 years 1-dose series) [facility] Start: 1999 Shingrix Vaccine (1 of 2) Shingrix Vaccine (1 of 2) [facility] Start: 1994 Diabetes Screening Diabetes Screening [facility] Start: 1994 Screening for malignant neoplasm of colon [facility] Start: 1984 Lipid panel Lipid Screening [facility] Start: 1968 Urine microalbumin profile DTaP,Tdap,Td Vaccine (1 - Tdap) [facility] Start: 1967 Annual PCP Team Chronic Disease Visit Annual PCP Team Chronic Disease Visit [facility] Start: 1967 Anxiety Screening Anxiety Screening [facility] Start: 1967 Depression Screening Depression Screening [facility] Start: 1967 Hepatitis B surface antibody level LDL Cholesterol [facility] Start: 1967 Hepatitis C screening Hepatitis C Screening [facility] Start: 1959 Diabetic foot examination Diabetic Foot Exam [facility] Start: 1959 Glaucoma screening Dilated Retinal Exam [facility] Start: 1959 Hepatitis B screening Urine Albumin:Creatinine Ratio [facility] Start: 1955 Pneumococcal Vaccine: 65+ (1 of 2 - PCV) Pneumococcal Vaccine: 65+ (1 of 2 - PCV) [facility] Start: 1954 Hemoglobin A1c measurement [facility]C [facility] Start: 1949 Screening for malignant neoplasm of colon [facility] MR Lumbar spine WO contrast [facility] MR Lumbar spine WO contrast [facility] Patient Education Diabetes and diet [facility] Work Phone: Patient referral [facility] Work Phone: XR Lumbar spine Views [facility] Immunizations Immunization Date Immunization Notes Care Provider Margarita montalvo 07-31-2024 influenza virus vaccine, unspecified formulation Khai Heard DO Work Phone: [facility] 06-15-2023 influenza virus vaccine, unspecified formulation Chelle Brandon MATERIAL PLANNING ANALYST Work Phone: [facility] 12-30-2020 COVID-19 Vaccine Moderna - Documentation Purposes Only Morgan Kunz Other [facility] 12-02-2020 COVID-19 Vaccine Moderna - Documentation Purposes Only Morgan Kunz Other [facility] Payers Date Payer Category Payer Self-pay [id number] 2021 Private Health Insurance [employer] Member Subscriber Plan / Payer (Effective 2021-Present) Name: Dong Whitmore Relation to Subscriber: Self Name: Dong Whitmore Payer ID: Not on file Type: Not on file Address: [place] [id number] 2021 Unknown [id number]. 1.13.159.2. [id number] 2012 Medicare 1.2.840.478220. 1.13.159.2. 7.3.530629.315 2012 Medicare [id number] 1959 Medicare [id number] 2.16.840.1.276002.19 1959 Unknown [id number] 2.16.840.1.103443.19 1949 Unknown [id number] 2.16.840.1.301365.3.579.2. 593 1949 Unknown [id number] 2.16.840.1.376491.3.579.2. 593 1949 Unknown [id number] 2.16.840.1.840223.3.579.2. 593 1949 Unknown [id number] 2.16.840.1.675637.3.579.2. 593 1949 Unknown [id number] 2.16.840.1.138035.3.579.2. 593 1949 Unknown [id number] 2.16.840.1.384134.3.579.2. 593 1949 Unknown [id number] 2.16.840.1.038101.3.579.2. 593 1949 Unknown [id number] 2.16.840.1.158984.3.579.2. 593 1949 Unknown [id number] 2.16.840.1.129701.3.579.2. 593 1949 Unknown [id number] 2.16.840.1.214640.3.579.2. 593 1949 Unknown [id number] 2.16.840.1.702917.3.579.2. 593 1949 Unknown [id number] 2.16.840.1.594425.3.579.2. 593 1949 Unknown [id number] 2.16.840.1.989305.3.579.2. 727 1949 Unknown [id number] 2.16.840.1.795953.3.579.2. 727 1949 Unknown [id number] 2.16.840.1.529396.3.579.2. 727 1949 Unknown [id number] 2.16.840.1.781873.3.579.2. 903 1949 Unknown [id number] 2.16.840.1.010877.3.579.2. 727 1949 Unknown [id number] 2.16.840.1.624833.3.579.2. 727 1949 Unknown [id number] 2.16.840.1.987072.3.579.2. 727 1949 Unknown [id number] 2.16.840.1.296104.3.579.2. 727 1949 Unknown [id number] 2.16.840.1.758938.3.579.2. 727 1949 Unknown [id number] 2.16.840.1.632917.3.579.2. 727 1949 Unknown [id number] 2.16.840.1.201551.3.579.2. 1949 Unknown [id number] 2.16.840.1.001535.3.579.2. 1949 Unknown [id number] 2.16.840.1.556151.3.579.2. 196 1949 Unknown [id number] 2.16.840.1.339158.3.579.2. 1949 Unknown [id number] 2.16.840.1.917857.3.579.2. 196 1949 Unknown [id number] 2.16.840.1.591261.3.579.2. 1949 Unknown [id number] 2.16.840.1.593068.3.579.2. 196 1949 Unknown [id number] 2.16.840.1.606358.3.579.2. 196 1949 Unknown [id number] 2.16.840.1.549091.3.579.2. 1949 Unknown [id number] 2.16.840.1.440694.3.579.2. 1949 Unknown [id number] 2.16.840.1.148541.3.579.2. 1949 Unknown [id number] 2.16.840.1.312732.3.579.2. 1949 Unknown [id number] 2.16.840.1.644656.3.579.2. 1949 Unknown [id number] 2.16.840.1.908606.3.579.2. 1949 Unknown [id number] 2.16.840.1.470869.3.579.2. 1949 Unknown [id number] 2.16.840.1.651605.3.579.2. 1949 Unknown [id number] 2.16.840.1.006387.3.579.2. 1949 Unknown [id number] 2.16.840.1.862092.3.579.2. 1949 Unknown [id number] 2.16.840.1.613103.3.579.2. 1949 Unknown [id number] 2.16.840.1.943777.3.579.2. 1949 Unknown [id number] 2.16.840.1.290690.3.579.2 1949 Unknown [id number] 2.16.840.1.747287.3.579.2 1949 Unknown [id number] 2.16.840.1.980142.3.579.2 1949 Unknown [id number] 2.16.840.1.161555.3.579.2 1949 Unknown [id number] 2.16.840.1.027344.3.579.2. 1949 Unknown [id number] 2.16.840.1.363538.3.579.2. 1258 1949 Unknown [id number] 2.16.840.1.229271.3.579.2. 1258 1949 Unknown [id number] 2.16.840.1.419449.3.579.2. 1258 1949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 (PRN); Mechanical cervical traction for decompression (PRN) Therapy Diagnosis: The patient's primary functional limitation is associated with walking and moving with regard to the cervical spine related disequilibrium with moderate impairment via Neck Index consistent with PT examination findings. Case complicated by Diabetic Neuropathy with near full loss of sensation bilateral feet Functional Limitations: Mild to moderate cervical pain, chronic disequilibrium, decreased ergonomicand cumulative postural positional stress knowledge/understanding, moderate scapular/UE and core strength deficits, moderate ADL, household management, work, sleep, and recreational deficits Short Term Goals: To be met by 07/08/25 The patient to demonstrate 50% reduction in cervical pain and disequilibrium in 2-4 weeks and >75% reduction in 6-8 weeks The patient to demonstrate functional active cervical ROM to 70 degrees rotation, 35 degrees of side-bending, and <25% loss of cervical extension motion in 2-4 weeks The patient to be low fall risk with Nicolas Balance Test by conclusion of intervention The patient to demonstrate functional cervical, scapular, and UE strength with good strength; demonstrate good compliance to ergonomic and postural recommendations; and have prophylactic management plan in place including routine home management via flexibility, strength, and balance exercises to re duce risk of future exacerbations and continue recovery of this condition expected by conclusion ofPT expected in 6-8 weeks Rehab Potential: Good PT Assessment: The patient has participated in 4 outpatient PT sessions since start of care on 04/15/25 for progressive balance impairment including unsteadiness, frequent falls, and associated deficits from underlying multisensory deficits. Reports continued improvement in cervical spine ROM with good improvement in stiffness/generalized soreness. Highly compliant with VOR and standing balance exercises with mildly improved erect walking and balance/gait endurance per reports. Chief barrier to progress is chronic several year history of neurogenic foot/toe pain that has not been reduced with multiple procedural pain management sessions. Also morbid obesity and low motivation in home environment makes nursing home improvement of this condition difficult. Continue to encourage routine HEP performance and improving overall quality of life with routine diet, exercise, and PT HEP performance. Reassessment and probable discharge next week. 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 Continue per PT POC Plan: Recommend outpatient PT 1-2 times/week for up to 8 weeks per above PT POC pending patient progress and medical necessity standards (04/15/25-DBO) I hereby deem this POC medically necessary. Please sign below and fax back to the number below. Physician Signature: Date: documented in this encounterMercy Hospital [id number] History of Present illness Narrative* Gabriela Smith, DPM - 05/01/2025 10:00 AM EDT Images from the original note were not included. Neuropathy: Patient states that he is diabetic, has been for 20+ years. He has seen Dr. Aguilar in the past. 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 He states that he has had nerve damage in the right great toe. He has pain in the great toe all the time, burning pain and shooting. Patient has tried oral Gabapentin without success as well as topical compounded Rx. He cannot feel the toe with pressure, but does have a lot of pain to the toe. He went to see pain management andthey started the Qutenza on the great toe. Previous treatment has included one Qutenza treatment, which has not improved symptoms. The pain limits his ability to sleep. He does take medication to help with his sleep. He does feel that the toe is getting worse because he is taking this medication all the time. He has had prior x-rays, MRI (years ago) and did have a partial amputation to the toe tohelp reduce the pain and nothing has helped. [...] Neuropathy Toe pain of unknown origin Plan: We did discuss application of Qutenza and how this medication is applied and the recommended courseof treatment to provide symptom improvement. Patient has tried a multitude of prior treatments for his diabetic neuropathy symptoms including: burning, shooting, pain. Patient was advised on how our office will obtain coverage information and process for application/treatment. Patient brought with him the box of Qutenza, but there was not a sheet of product in the box. They are going to stop backby the pain management office to sampler pickup the rest of the sheet for application. I advised that it is recommended that we plan on three applications spaced 3 months apart in order to see the most symptoms improvement which is what is required by insurance. Patient will be scheduled for early-mid May when he can have an additional application of the Qutenza. documented in this encounterMercy Hospital [id number] History of Present illness Narrative* David Wong MD - 04/30/2025 2:20 PM EDT Subjective Patient ID: Dong Whitmore is a 74 y.o. male who presents for Ear Problem (Follow up MRI [facility] 04/08/25) MRI reviewed and there is no AN on the RT. Vest rehab going well. Already has an appt to talk aboutHA. Also notes some RT ear fullness. Family History Problem Relation Name Age of Onset Hypertension Mother Isabel Whitmore Heart disease Mother Isabel Whitmore Stroke Mother Isabel Whitmore Diabetes Father Benjamin Whitmore Stroke Father Benjamin Whitmore Hypertension Father Benjamin Whitmore Active Ambulatory Problems Diagnosis Date Noted 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 05/22/2019 Complex regional pain syndrome type II of right lower limb 04/03/2024 Hyperlipidemia 01/08/2013 Essential hypertension 01/08/2013 Gastroesophageal reflux disease 01/08/2013 Peripheral neuropathy 11/25/2022 Type 2 diabetes mellitus (HCC) 11/25/2022 Anxiety 12/18/2024 Benign hypertensive 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 2024 Chest pain 01/08/2013 Chronic ulcer of left foot with fat layer exposed ([facility]) 03/28/2025 Class 3 severe obesity with serious comorbidity and body mass index (BMI) of 40.0 to 44.9 in adult ([facility]) 02/05/2024 Concentric left ventricular hypertrophy 2024 Current use of insulin ([facility]) 06/26/2024 Diabetic mononeuropathy ([facility]) 03/28/2025 Dietary counseling and surveillance 06/26/2024 MILLER (dyspnea on exertion) 12/18/2024 Peripheral venous insufficiency 03/28/2025 Pre-op evaluation 12/18/2024 Right elbow pain 12/18/2024 Sleep apnea 01/08/2013 Spontaneous rupture of other tendons, right upper arm 03/28/2025 Strain of muscle, fascia and tendon of triceps, right arm, initial encounter 03/28/2025 Resolved Ambulatory Problems Diagnosis Date Noted No Resolved Ambulatory Problems Past Medical History: Diagnosis Date COVID-19 vaccine series completed Diabetes ([facility]) Hypercholesterolemia Hypertension Neuropathy in diabetes ([facility]) PVD (peripheral vascular disease) Stress fracture Past Surgical History: Procedure Laterality Date AMPUTATION APPENDECTOMY CARDIAC SURGERY 2013 stents CARPAL TUNNEL RELEASE Right FOOT SURGERY PROSTATE SURGERY TOE AMPUTATION TOE SURGERY Right 3,5th VASECTOMY Allergies Allergen Reactions Cefuroxime Unknown Celecoxib Unknown Cephalosporins Other Reaction(s): Unknown Reaction Diflunisal Unknown Dulaglutide Unknown Ibuprofen Unknown Liraglutide Unknown Metformin Hcl Unknown Naproxen Unknown Nsaids Other Rofecoxib Unknown Sulindac Unknown Current Outpatient Medications on File Prior to Visit Medication Sig Dispense Refill acarbose (Precose) 50 MG tablet Take 50 mg by mouth in the morning and 50 mg at noon and 50 mg in the evening. Take with meals. aspirin 81 MG EC tablet Take 81 mg by mouth Daily buPROPion SR (Wellbutrin SR) 150 MG 12 hr tablet Take 150 mg by mouth in the morning. buPROPion XL (Wellbutrin XL) 300 MG 24 hr tablet Take 300 mg by mouth Daily Calcium Carb-Cholecalciferol 600-5 MG-MCG tablet Januvia 100 MG tablet Take 100 mg by mouth Daily losartan (Cozaar) 50 MG tablet Take 100 mg by mouth at bedtime nitroglycerin (Nitrostat) 0.4 MG SL tablet pioglitazone (Actos) 30 MG tablet Take 30 mg by mouth Daily simvastatin (Zocor) 40 MG tablet Take 40 mg by mouth at bedtime sodium bicarbonate 650 MG tablet Take 1,300 mg by mouth in the morning and 1,300 mg in the evening and 1,300 mg before bedtime. tiZANidine (Zanaflex) 4 MG tablet Take 4 mg by mouth at bedtime triamcinolone (Kenalog) 0.1 % ointment Apply topically 2 (two) times a day as needed (Rash) Avoid face, armpits and groin. 60 g 11 venlafaxine (Effexor) 37.5 MG tablet Take 37.5 mg by mouth in the morning and 37.5 mg before bedtime. venlafaxine (Effexor) 75 MG tablet No current facility-administered medications on file prior to visit. Objective Last Recorded Vitals Vitals: 04/30/25 1419 BP: 113/77 Pulse: 76 ENT Physical Exam Constitutional Appearance: patient appears well-developed, well-nourished and well-groomed, Communication/Voice: communication appropriate for developmental age; vocal quality normal; Assessment/Plan Diagnoses and all orders for this visit: Imbalance Asymmetric SNHL (sensorineural hearing loss) Continue vest rehab. Cleared for ross SHEN. Trial of a low sodium diet for hydrops sx documented in this encounterMercy Hospital [id number] History of Present illness Narrative* Morgan Arnold, PT - 04/29/2025 1:00 PM EDT Physical Therapy Physical Therapy Treatment Visit Patient Name: Dong Whitmore Today's Date: 04/29/2025 Encounter Diagnoses Name Primary? Cervicalgia Yes Imbalance Unsteadiness on feet Frequent falls Time In: 1:00 pm Time out: 1:45 pm Supervised Time: 45 Min Total Time: 45 Min Visit Number: 3 (REQUIRES KX TO ALL PT CLAIMS: Medicare-Visits Based on Medical Necessity) Chief Complaint: Chronic disequilibrium, loss of balance, frequent falls PRECAUTIONS: High Fall Risk; DM with neuropathy; Severe obesity Subjective History: 74 yo male presents per referral of David Wong MD with probable multisensory deficitaffecting stability and balance leading to this PT consult. Prior PT at [facility] with inconsistent results leading to this referral and PT Evaluation per referral of David Wong MD. Patient report 12-18 months of progressive imbalance with 10+ falls in the last 6 months. Denies vertigo or vestibular involvement in falls. Reports he feels disequilibrium and weakness in legs resulting in loss of balance and falls. Recent MRI of the brain/inner ear found mild chronic small vesselchanges and central involutional changes. Negative acute intracranial process. MRI of the lumbar spine finds significant stenosis at multiple levels per patient reports. Additionally, progressive neck OA is noted. Progressive decline in mobility and recurrent falls leads to this PT consult (04/15/25-DBO) Pain: Reports continued improvement in cervical spine ROM with good improvement in stiffness/generalized soreness. Highly compliant with VOR and standing balance exercises with mildly improved erect walking and balance/gait endurance per reports. Good compliance to all PT recommendations Objective: Examination performed on 04/15/25 Postural assessment demonstrates moderate to severe forward head and rounded shoulder dysfunction with moderate increased thoracic kyphosis. AROM demonstrates cervical rotation 55 degrees, side-bending 20 degrees, and cervical extension reduced by 50-75%. The patient reports chronic episodes of imbalance without spinning or apparent vertigo components. Cervical postural and scapular strength is rated at 4-/5. Upper limb neural mobility of the bilateral UE median and radial nerve distributes were moderately reduced. Positive PA testing over C5-C7 disc interspace with positive response to cervical distraction and noxious response to cervical compression. Noted moderate occipital tenderness with palpation of the suboccipital structures. Mobility screen of the upper, middle, lower cervical spine, and upper thoracic spine demonstrated OA feel and generalized moderate hypomobility. Upper cervical ligament testing of the alar and transverse limits was unremarkable. Patient denies presence of cardinal S/S with no perioral or facial numbness and tingling and negative vertebral artery screen; Cranial nerve screen was unremarkable; H and I eye examination was normal; BPPV screen was normal. Patient does report episodes of generalized disequilibrium, a feeling of fullness in head, difficulty with concentration, and chronic balance deficit exacerbated with dynamic gait activity consistent with cervicogenic disequilibrium exacerbated by chronic cervical OA and postural dysfunction. The patient scores high fall risk with Nicolas Balance Test scoring of 44/56. Patient with consistent retropulsion with head motion without eyes fixated and had a diminished VORreflex. General trunk and LE ROM and strength is fair+ to good at 4+/5 to 5/5 with generalized flexibility deficit with HS 90/90 length -30 degrees bilateral. Patient with advanced diabetic neuropathy including near full loss of sensation of both feet. Prior Level of Function ADLs: Independent Recreation: Sedentary Employment: Retired [employer] INTERVENTIONS Manual: Grade I/II cervical/thoracic PA mobilization and cervical manual distraction focused C4-T2;occipital released and upper cervical mobilization with special care to avoid VA stress, prone PA thoracic mobilization, Upper limb neural tensioning/mobility, and aggressive STM for improvement of tissue tone/pain, promotion of mobility, and reduction of chronic disequilibrium (20 Min) Therapeutic Exercise: Per Exercise Grid found in patient documents including cervical flexibility, scapular and cervical/core strengthening, ergonomic, and postural training. General UE/scapular/core/LE strengthening to assist terminal make up operator management (10 Min) Therapeutic Activity: Functional Activity Training (PRN) Neuromuscular Re-education: Neuromuscular reeducation including muscle facilitation, ergonomic and postural training, core strengthening, balance adaptation and compensation program, and fall risk reduction strategy (15 Min) Modalities: Electrical Stimulation/moist heat seated to mid to lower cervical and upper thoracic spine IFC High/Low Sweep for inflammation and pain control (PRN); UltraSound-2 MHz 1.5 w/cm2 at mid tolower cervical spine (PRN); Mechanical cervical traction for decompression (PRN) Therapy Diagnosis: The patient's primary functional limitation is associated with walking and moving with regard to the cervical spine related disequilibrium with moderate impairment via Neck Index consistent with PT examination findings. Case complicated by Diabetic Neuropathy with near full loss of sensation bilateral feet Functional Limitations: Mild to moderate cervical pain, chronic disequilibrium, decreased ergonomicand cumulative postural positional stress knowledge/understanding, moderate scapular/UE and core strength deficits, moderate ADL, household management, work, sleep, and recreational deficits Short Term Goals: To be met by 07/08/25 The patient to demonstrate 50% reduction in cervical pain and disequilibrium in 2-4 weeks and >75% reduction in 6-8 weeks The patient to demonstrate functional active cervical ROM to 70 degrees rotation, 35 degrees of side-bending, and <25% loss of cervical extension motion in 2-4 weeks The patient to be low fall risk with Nicolas Balance Test by conclusion of intervention The patient to demonstrate functional cervical, scapular, and UE strength with good strength; demonstrate good compliance to ergonomic and postural recommendations; and have prophylactic management plan in place including routine home management via flexibility, strength, and balance exercises to re duce risk of future exacerbations and continue recovery of this condition expected by conclusion ofPT expected in 6-8 weeks Rehab Potential: Good PT Assessment: The patient has participated in 3 outpatient PT sessions since start of care on 04/15/25 for progressive balance impairment including unsteadiness, frequent falls, and associated deficits from underlying multisensory deficits. Reports continued improvement in cervical spine ROM with good improvement in stiffness and generalized soreness. Highly compliant with VOR and standing balance exercises with mildly improved erect walking and balance/gait endurance per reports. Good compliance to all PT recommendations Demonstrates good improvement in gait speed, endurance, and balance. Plan to train with high walking poles to assist with functional mobility next session. Appears highly compliant with HEP. Continue per PT POC Plan: Recommend outpatient PT 1-2 times/week for up to 8 weeks per above PT POC pending patient progress and medical necessity standards (04/15/25-DBO) I hereby deem this POC medically necessary. Please sign below and fax back to the number below. Physician Signature: Date: documented in this encounterMercy Hospital [id number] History of Present illness Narrative* Morgan Arnold, PT - 04/23/2025 1:00 PM EDT Physical Therapy Physical Therapy Evaluation Visit Patient Name: Dong Whitmore Today's Date: 04/23/25 Encounter Diagnoses Name Primary? Cervicalgia Yes Imbalance Unsteadiness on feet Frequent falls Time In: 1:00 pm Time out: 1:45 pm Supervised Time: 45 Min Total Time: 45 Min Visit Number: 2 (REQUIRES KX TO ALL PT CLAIMS: Medicare-Visits Based on Medical Necessity) Chief Complaint: Chronic disequilibrium, loss of balance, frequent falls PRECAUTIONS: High Fall Risk; DM with neuropathy; Severe obesity Subjective History: 74 yo male presents per referral of David Wong MD with probable multisensory deficitaffecting stability and balance leading to this PT consult. Prior PT at [facility] with inconsistent results leading to this referral and PT Evaluation per referral of David Wong MD. Patient report 12-18 months of progressive imbalance with 10+ falls in the last 6 months. Denies vertigo or vestibular involvement in falls. Reports he feels disequilibrium and weakness in legs resulting in loss of balance and falls. Recent MRI of the brain/inner ear found mild chronic small vesselchanges and central involutional changes. Negative acute intracranial process. MRI of the lumbar spine finds significant stenosis at multiple levels per patient reports. Additionally, progressive neck OA is noted. Progressive decline in mobility and recurrent falls leads to this PT consult (04/15/25-DBO) Pain: Reports fair improvement in cervical spine ROM with mild initial increased soreness due to mobilization. Highly compliant with VOR and standing balance exercises with mildly improved erect walking and balance/gait endurance per reports. Good compliance to all PT recommendations Objective: Examination performed on 04/15/25 Postural assessment demonstrates moderate to severe forward head and rounded shoulder dysfunction with moderate increased thoracic kyphosis. AROM demonstrates cervical rotation 55 degrees, side-bending 20 degrees, and cervical extension reduced by 50-75%. The patient reports chronic episodes of imbalance without spinning or apparent vertigo components. Cervical postural and scapular strength is rated at 4-/5. Upper limb neural mobility of the bilateral UE median and radial nerve distributes were moderately reduced. Positive PA testing over C5-C7 disc interspace with positive response to cervical distraction and noxious response to cervical compression. Noted moderate occipital tenderness with palpation of the suboccipital structures. Mobility screen of the upper, middle, lower cervical spine, and upper thoracic spine demonstrated OA feel and generalized moderate hypomobility. Upper cervical ligament testing of the alar and transverse limits was unremarkable. Patient denies presence of cardinal S/S with no perioral or facial numbness and tingling and negative vertebral artery screen; Cranial nerve screen was unremarkable; H and I eye examination was normal; BPPV screen was normal. Patient does report episodes of generalized disequilibrium, a feeling of fullness in head, difficulty with concentration, and chronic balance deficit exacerbated with dynamic gait activity consistent with cervicogenic disequilibrium exacerbated by chronic cervical OA and postural dysfunction. The patient scores high fall risk with Nicolas Balance Test scoring of 44/56. Patient with consistent retropulsion with head motion without eyes fixated and had a diminished VORreflex. General trunk and LE ROM and strength is fair+ to good at 4+/5 to 5/5 with generalized flexibility deficit with HS 90/90 length -30 degrees bilateral. Patient with advanced diabetic neuropathy including near full loss of sensation of both feet. Prior Level of Function ADLs: Independent Recreation: Sedentary Employment: Retired [employer] INTERVENTIONS Manual: Grade I/II cervical/thoracic PA mobilization and cervical manual distraction focused C4-T2;occipital released and upper cervical mobilization with special care to avoid VA stress, prone PA thoracic mobilization, Upper limb neural tensioning/mobility, and aggressive STM for improvement of tissue tone/pain, promotion of mobility, and reduction of chronic disequilibrium (20 Min) Therapeutic Exercise: Per Exercise Grid found in patient documents including cervical flexibility, scapular and cervical/core strengthening, ergonomic, and postural training. General UE/scapular/core/LE strengthening to assist nursing home management (10 Min) Therapeutic Activity: Functional Activity Training (PRN) Neuromuscular Re-education: Neuromuscular reeducation including muscle facilitation, ergonomic and postural training, core strengthening, balance adaptation and compensation program, and fall risk reduction strategy (15 Min) Modalities: Electrical Stimulation/moist heat seated to mid to lower cervical and upper thoracic spine IFC High/Low Sweep for inflammation and pain control (PRN); UltraSound-2 MHz 1.5 w/cm2 at mid tolower cervical spine (PRN); Mechanical cervical traction for decompression (PRN) Therapy Diagnosis: The patient's primary functional limitation is associated with walking and moving with regard to the cervical spine related disequilibrium with moderate impairment via Neck Index consistent with PT examination findings. Case complicated by Diabetic Neuropathy with near full loss of sensation bilateral feet Functional Limitations: Mild to moderate cervical pain, chronic disequilibrium, decreased ergonomicand cumulative postural positional stress knowledge/understanding, moderate scapular/UE and core strength deficits, moderate ADL, household management, work, sleep, and recreational deficits Short Term Goals: To be met by 07/08/25 The patient to demonstrate 50% reduction in cervical pain and disequilibrium in 2-4 weeks and >75% reduction in 6-8 weeks The patient to demonstrate functional active cervical ROM to 70 degrees rotation, 35 degrees of side-bending, and <25% loss of cervical extension motion in 2-4 weeks The patient to be low fall risk with Nicolas Balance Test by conclusion of intervention The patient to demonstrate functional cervical, scapular, and UE strength with good strength; demonstrate good compliance to ergonomic and postural recommendations; and have prophylactic management plan in place including routine home management via flexibility, strength, and balance exercises to re duce risk of future exacerbations and continue recovery of this condition expected by conclusion ofPT expected in 6-8 weeks Rehab Potential: Good PT Assessment: The patient has participated in 2 outpatient PT sessions since start of care on 04/15/25 for progressive balance impairment including unsteadiness, frequent falls, and associated deficits from underlying multisensory deficits. Reports fair improvement in cervical spine ROM with mild initial increased soreness due to mobilization. Highly compliant with VOR and standing balance exercises with mildly improved erect walking and balance/gait endurance per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 NoteHNO ID: [id number] Author: CHIQUI ROBLES MD Service: ? Author Type: Physician Type: Progress Notes Filed: 08/26/2024 16:34 Note Text: [facility] STAFF PHYSICIAN NOTE OF PERSONAL [...] - psychotherapy was utilized during the visit. Pwok-wf-lbch time: 61262 (16-37 mins) actual time spend in psychotherapy 18 minutes Type of therapeutic intervention:Supportive Target symptoms: Pain coping skills and Acceptance and adapting Progress/Session notes:processing Interactive Complexity: None STAFF PHYSICIAN:: Chiqui Robles MD DATE of SERVICE: 08/14/2024[facility]11-06-2024 History of Present illness Narrative* Chiqui Robles MD - 08/14/2024 10:29 AM EST [facility] STAFF PHYSICIAN NOTE OF PERSONAL INVOLVEMENT IN CARE IMPRESSION: Complex regional pain syndrome type ii of right lower limb Chronic toe pain, right foot Class 3 severe obesity with serious comorbidity and body mass index (bmi) of 40.0 to 44.9 in adult,unspecified obesity type (hcc) Sleepy on current meds, [...] - psychotherapy was utilized during the visit. Apxi-gl-pzej time: [id number] (16-37 mins) actual time spend in psychotherapy 18 minutes Type of therapeutic intervention:Supportive Target symptoms: Pain coping skills and Acceptance and adapting Progress/Session notes:processing Interactive Complexity: None STAFF PHYSICIAN:: Chiqui Robles MD DATE of SERVICE: 08/14/2024 * Claudia Chilel MD - 08/14/2024 9:55 AM EST [facility] [place] August 14, 2024 This is a face to face visit. SUBJECTIVE: Pain in R foot is improved since last visit, but still present. On Memantine 10 mg daily now, whichdoes not help. Middle R toe was amputated (06/2024). Saw no improvement in pain with this. RestartedLyrica from PCP shortly afterwards (which has been [...] toe on R foot. Numbness from neuropathy inR foot extends to past ankle. Intact strength [...] has been helpful for pain but causes afua tion. CRPS with R foot pain T2DM with diabetic neuropathy PLAN: Discontinue Memantine due to lack of benefit. Continue Tizanidine (4 mg TID) and Lyrica (75 mg BID) without changes for now (managed and prescribed by PCP). Can consider discontinuing Lyrica and starting Trileptal if sedation is more bothersome. Claudia Chilel MD, AMANDA August 14, 2024 10:37 AM documented in this encounterMercy [facility]11-06-2024 NoteHNO ID: [id number] Author: CLAUDIA CHILEL MD Service: ? Author Type: Resident Type: Progress Notes Filed: 08/14/2024 10:51 Note Text: [facility] [place] August 14, 2024 This is a face [...] Chilel MD, AMANDA August 14, 2024 10:[address] [facility]10-31-2024 History of Present illness Narrative* Bassam Aguilar DPM - 08/08/2024 9:40 AM EDT Patient: Dong Whitmore : 1950 PCP: Haider [...] Diagnosis Date COVID-19 vaccine series completed Diabetes ([facility]/HCC) Hypercholesterolemia (CMS/HCC) Hypertension ([facility]/HCC) PVD (peripheral vascular disease) ([facility]) Medications: Current Outpatient Medications: acarbose (Precose) [...] TONGUE EVERY 5 MINS, UP TO 3 DOSESAS NEEDED FOR CHEST PAIN, Disp: , Rfl: pioglitazone (Actos) 30 MG tablet, Take 30 mg by mouth in the morning., Disp: , Rfl: simvastatin (Zocor) 40 MG tablet, Take 40 mg by mouth at bedtime., Disp: , Rfl: sodium bicarbonate 650 MG tablet, Take 1,300 mg by mouth in the morning and 1,300 mg in the eveningand 1,300 mg before bedtime., Disp: , Rfl: [...] Partner Violence: Unknown (11/30/2023) Received from [facility] [place] Fear of [...] condition with diabetic polyneuropathy, 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 terminal make up operator insulin use ([facility]) 2. Pain due to onychomycosis of toenails of both feet 3. Amputation of toe of right foot ([facility]) PLAN Debride nails in length and thickness digits 1 through 10 Patient educated today on proper diabetic foot care including monitoring feet daily for any signs of infection openings in the skin or irregularities to both feet. Patient had a diabetic neurologicalexam today to both their feet and discussed proper shoe gear Patient continue with normal shoe gear and has informed me that he has been switched to a new medication for his peripheral neuropathy type pain that is of some benefit for him. He continues to follow up with spinal surgery Bassam Aguilar DPM documented in this encounterMercy Hospital [id number] NoteBellevue Office Cardiology Clinic Note Reason for cardiology [...] DM type 2 (diabetes mellitus, type 2) ([facility]), HLD (hyperlipidemia), HTN (hypertension), Neuropathy, and ULISES [...] DAY SUBCUTANEOUSLY DIRECTED, Disp: , Rfl: omega 7-gwd-erh-fish oil (Fish OiL) 1,200 (144-216) mg capsule, [...] right bundle branch block Echo 07/08/2024 at [facility] Echo 12/30/2022 Echo 11/15/2016 Nuclear stress test 12/29/2022 at [facility] EKG portion Assessment and Plan: Coronary artery disease, status post prior PTCA of the left circumflex artery and RCA in 2012 Last stress test 12/30/2022 which was negative for ischemia with normal ejection fraction He is on aspirin, metoprolol, and simvastatin. Clinically stable Severe LVH on recent echo probably due to uncontrolled hypertensi (more content not included)...[facility]10-23-2024 History of Present illness Narrative* Shyam Freeman DPM FACFAS - 07/31/2024 10:10 AM EDT Images from the original note [...] (CMS/HCC) Hypertension (CMS/HCC) PVD (peripheral vascular disease) (CMS/[facility]) Medications: Current Outpatient Medications: acarbose (Precose) [...] TONGUE EVERY 5 MINS, UP TO 3 DOSESAS NEEDED FOR CHEST PAIN, Disp: , Rfl: pioglitazone (Actos) 30 MG tablet, Take 30 mg by mouth in the morning., Disp: , Rfl: simvastatin (Zocor) 40 MG tablet, Take 40 mg by mouth at bedtime., Disp: , Rfl: sodium bicarbonate 650 MG tablet, Take 1,300 mg by mouth in the morning and 1,300 mg in the eveningand 1,300 mg before bedtime., Disp: , Rfl: [...] < 3 seconds Digits 1-5 bilateral NEURO: [place] Yandy 5.07 monofilament was intact B/L. Vibratory sensation was intact B/L Musculoskeletal: Muscle strength was +5 over 5 all intrinsic and extrinsic muscles tested. NegativeHomans test noted Surgical site evaluation: The incision site is healing well without signs infection. Minimal swelling noted. Consistent with the patient's level of surgery consistent with time frame postoperatively. ASSESSMENT 1. Acquired deformity of right toe 2. Diabetes 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, 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 nursing home insulin use ([facility]) 3. Amputation of right great toe ([facility]) PLAN Patient had no improvement with diagnostic injection. I feel the this point the pain is not relatedto his toe but appears to be from his low back sciatic issue spoke with his primary care physician they plan to work him up for low back concerns AUGUSTIN Horn documented in this encounterMercy Hospital [id number] History of Present illness Narrative* AUGUSTIN Horn - 07/24/2024 10:20 AM EDT Images from the original note [...] ice elevation and pain medication. They have beenrelatively compliant with her postoperative care. Patient can [...] TONGUE EVERY 5 MINS, UP TO 3 DOSESAS NEEDED FOR CHEST PAIN, Disp: , Rfl: pioglitazone (Actos) 30 MG tablet, Take 30 mg by mouth in the morning., Disp: , Rfl: simvastatin (Zocor) 40 MG tablet, Take 40 mg by mouth at bedtime., Disp: , Rfl: sodium bicarbonate 650 MG tablet, Take 1,300 mg by mouth in the morning and 1,300 mg in the eveningand 1,300 mg before bedtime., Disp: , Rfl: [...] < 3 seconds Digits 1-5 bilateral NEURO: [place] Yandy 5.07 monofilament was intact B/L. Vibratory sensation was intact B/L Musculoskeletal: Muscle strength was +5 over 5 all intrinsic and extrinsic muscles tested. NegativeHomans test noted Surgical site evaluation: The incision site is healing well without signs infection. Minimal swelling noted. Consistent with the patient's level of surgery consistent with time frame postoperatively.Sutures remain intact without signs of dehiscence. ASSESSMENT [...] his leg. AUGUSTIN Horn documented in this encounterMercy Hospital [id number] History of Present illness Narrative* Arlen Sanchez, DO - 07/23/2024 9:45 AM EDT Images from the original note were not included. HISTORY OF PRESENT ILLNESS: Dong Whitmore is an 73 y.o. @ male. Chief complaint LT shoulder pain LT Shoulder: here for MRI results [facility] 07/15/24 8 1/2 weeks ago pt fell, went to [facility] ER on 05/24/24 and had xrays done. He fell down concrete stairsand landed on the LT shoulder. DOI 05/24/24. [...] he does these. [place]: LT shoulder xrays [facility] 05/24/24, acetiminophen with codeine, ice, bengay, 06/12/24 subacromial depomedrol injection, MRI [facility] 10/7/24, doing pendulums. Pt is RT handed. MEDICATION: [...] by mouth in the morning and 50 mgbefore bedtime. metoprolol tartrate (Lopressor) 50 MG tablet [...] IMAGING: MRI of the shoulder from the [facility] had revealed a full-thickness tear of the [...] cuff, 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 traumatic M75.122 Ambulatory referral toOrthopaedic Surgery 4. Left shoulder pain, unspecified chronicity M25.512 PLAN: I explained the diagnosis and reviewed treatment options. I answered all of the patient's questions. I discussed options of surgical and non surgical treatment. Risks/benefits of each and chances forsuccess/ failure. Discussion included but was not limited [...] orthopedic surgeon or a surgeon of the patient'schoosing. Follow up as needed, any issues/concerns follow up sooner. Dr. Sanchez obtained history and examined the patient, I am acting as scribe for Dr. Sanchez/darion Sanchez D.O. documented in this encounterMercy Hospital [id number] NoteCardiovascular Medicine [facility] SUBJECTIVE No chief complaint on file. [...] Obesity Sleep apnea Type 2 diabetes mellitus ([facility]/HCC) Complex regional pain syndrome type II of right lower limb 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 Current use of insulin ([facility]) Dietary counseling and surveillance Past Medical History: Diagnosis Date CAD (coronary artery disease) DM type 2 (diabetes mellitus, type 2) ([facility]) HLD (hyperlipidemia) HTN (hypertension) Neuropathy [...] DAY SUBCUTANEOUSLY DIRECTED, Disp: , Rfl: omega 9-eyz-jmb-fish oil (Fish OiL) 1,200 (144-216) mg capsule, [...] normal. Behavior: Behavior nor (more content not included)...[facility]10-10-2024 Telephone encounter Note* Telephone Encounter - Christiano Solis RN - 07/18/2024 10:17 AM EDT Patient told to schedule an appt to discuss in detail [facility]10-10-2024 Miscellaneous Notes* Telephone Encounter - Christiano Solis RN - 07/18/2024 10:17 AM EDT Patient told to schedule an appt to discuss in detail documented in this encounterMercy Health [facility]10-09-2024 NotePatient Education Nephrology Dietary Guidelines to Help Prevent [...] ? 8 oz (237 mL) of milk, xavjqsg-mnhitzytmyxg-hwfec milk, and calcium- fortifiedfruit juice. Calcium-fortified means that calcium has been [...] Spinach (cooked), rhubarb, beets, sweet potatoes, and [place] chard. ? Peanuts. ? Potato chips, maldivian fries, and baked potatoes with skin on. ? Nuts and nut products. ? Chocolate. ? If you regularly take a diuretic medicine, make sure to eat at least 1 or 2 servings of fruits orvegetables that are high in potassium each day. These include: ? Avocado. ? Banana. ? [place], prune, carrot, or tomato juice. ? Baked [...] with your dietitian to find an eating planand weight loss strategies that work best for you. General information ? Talk to your health care provider and dietitian about taking daily supplements. Depending on yourhealth and the cause of your kidney stones, you may be told: ? Do not take high-dose supplements of vitamin C (1,000 mg a day or more). ? To take a calcium supplement. ? To take a daily probiotic supplement. ? To take other supplements such as magnesium, fish oil, or vitamin B6. ? Take vlxv-rip-ooesqus and prescription medicines only as told by your health care provider. Theseinclude suppleme (more content not included)...[facility]09-26-2024 Telephone encounter Note* Telephone Encounter - Carrie Perez - 07/04/2024 3:30 PM EDT Patient's called regarding MRI. Patient is now getting it done at [facility]. Patient's is requesting volume [facility] [place]. Please advise [phone]. [facility] [id number] Miscellaneous Notes* Telephone Encounter - Carrie Perez - 07/04/2024 3:30 PM EDT Patient's called regarding MRI. Patient is now getting it done at [facility]. Patient's is requesting volume be sent to [facility] [place]. Please advise [phone]. documented in this encounterMercy Hospital [id number] History of Present illness Narrative* Shyam Freeman DPM FACFAS - 07/03/2024 10:20 AM EDT Images from the original note [...] ice elevation and pain medication. They have beenrelatively compliant with her postoperative care. Patient can [...] TONGUE EVERY 5 MINS, UP TO 3 DOSESAS NEEDED FOR CHEST PAIN, Disp: , Rfl: pioglitazone (Actos) 30 MG tablet, Take 30 mg by mouth in the morning., Disp: , Rfl: simvastatin (Zocor) 40 MG tablet, Take 40 mg by mouth at bedtime., Disp: , Rfl: sodium bicarbonate 650 MG tablet, Take 1,300 mg by mouth in the morning and 1,300 mg in the eveningand 1,300 mg before bedtime., Disp: , Rfl: [...] < 3 seconds Digits 1-5 bilateral NEURO: [place] Yandy 5.07 monofilament was intact B/L. Vibratory sensation was intact B/L Musculoskeletal: Muscle strength was +5 over 5 all intrinsic and extrinsic muscles tested. NegativeHomans test noted Surgical site evaluation: The incision site is healing well without signs infection. Minimal swelling noted. Consistent with the patient's level of surgery consistent with time frame postoperatively.Sutures remain intact without signs of dehiscence. ASSESSMENT 1. Acquired deformity of right toe PLAN Today we applied a dry sterile dressing with betadine to the incision site. Sutures removed today recommended 1 more week in the surgical shoe followed by return to regular shoe gear reassess his pain level in 2 weeks AUGUSTIN Horn documented in this encounterMercy Hospital [id number] History of Present illness Narrative* Chelle Brandon, MATERIAL PLANNING ANALYST - 07/01/2024 10:00 AM EDT Subjective Patient ID: Dong Whitmore is a 73 y.o. male. LT Shoulder Pt is RT handed. 3 weeks s/p subacromial depo medrol injection (06/12/24) with 0% improvement. States he is worse he ran into the corner of his TV about 1 week ago. 5 weeks and 5 days ago pt fell, went to [facility] ER on 05/24/24 and had xrays done. He fell down concretestairs and landed on the LT shoulder. DOI 05/24/24. Presents in sling, and with cane. States he usesthe cane for balance issues. States he also [...] he does these. [place]: LT shoulder xrays [facility] 05/24/24, acetiminophen with codeine, ice, bengay, 06/12/24 subacromial depomedrol injection Objective Left Shoulder Exam Tests Lopez [...] tolerated, f/u s/p MRI documented in this encounterMercy Hospital [id number] NoteCardiovascular Medicine [facility] SUBJECTIVE Chief Complaint Patient presents with [...] with lymphedema. He follows with endocrinology in [place]. He has MILLER - this is unchanged. [...] is [facility] a [facility]. 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 01/23/2023 He is down about 10lbs since [...] Obesity Sleep apnea Type 2 diabetes mellitus ([facility]/HCC) Complex regional pain syndrome type II of right lower limb 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 Current use of insulin ([facility]) Dietary counseling and surveillance Past Medical History: Diagnosis Date CAD (coronary artery disease) DM type 2 (diabetes mellitus, type 2) ([facility]) HLD (hyperlipidemia) HTN (hypertension) Neuropathy [...] tablet, venlafaxine 37.5 mg (more content not included)...[facility]09-18-2024 NotePatient here for 1 year follow up CAD, hypertension, and hyperlipidemia. Had lipid panel this past December. Had foot surgery last week. Denies chest pain, SOB, palpitations, and lightheadedness/syncope. 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 Review of Systems Cardiovascular: Positive for leg swelling (RLE). Musculoskeletal: Positive for joint pain. All other systems reviewed and are negative.[facility] 06-25-2024 History of Present illness Narrative* Kajal Freeman DPM FACFAS - 06/25/2024 2:20 PM EDT Images from the original note were [...] Diagnosis Date COVID-19 vaccine series completed Diabetes ([facility]) Hypercholesterolemia ([facility]) Hypertension ([facility]) PVD (peripheral vascular disease) ([facility]) Medications: Current Outpatient Medications: acarbose (Precose) [...] TONGUE EVERY 5 MINS, UP TO 3 DOSESAS NEEDED FOR CHEST PAIN, Disp: , Rfl: pioglitazone (Actos) 30 MG tablet, Take 30 mg by mouth in the morning., Disp: , Rfl: simvastatin (Zocor) 40 MG tablet, Take 40 mg by mouth at bedtime., Disp: , Rfl: sodium bicarbonate 650 MG tablet, Take 1,300 mg by mouth in the morning and 1,300 mg in the eveningand 1,300 mg before bedtime., Disp: , Rfl: [...] < 3 seconds Digits 1-5 bilateral NEURO: [place] Yandy 5.07 monofilament was intact B/L. Vibratory sensation was intact B/L Musculoskeletal: Muscle strength was +5 over 5 all intrinsic and extrinsic muscles tested. NegativeHomans test noted Surgical site evaluation: The incision site is healing well without signs infection. Minimal swelling noted. Consistent with the patient's level of surgery consistent with time frame postoperatively.Sutures remain intact without signs of dehiscence. Radiographs: AP/MO/LAT: Diagnostic ultrasound: ASSESSMENT 1. Acquired deformity of right toe 2. Diabetes 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, 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 terminal make up operator insulin use (CMS/HCC) 3. Venous insufficiency 4. Non-pressure chronic ulcer of other part of right lower leg with fat layer exposed ([facility]) PLAN Today we applied a dry [...] the ambulatory surgical device. I have explained tothe patient that he needs a couple of weeks for the area to heal. He will continue taking the muscle relaxers for pain relief he is going to follow up with Dr. Howe. AUGUSTIN Sam documented in this [facility]09-11[facility]2024 Miscellaneous Notes* Telephone Encounter - AUGUSTIN Horn - 06/19/2024 11:00 PM EDT Sx rx documented in this [facility]09-11-2024 Telephone encounter Note* Telephone Encounter - AUGUSTIN Horn - 06/19/2024 11:00 PM EDT Sx rx [facility] [id number] History of Present illness Narrative* AUGUSTIN Horn - 06/19/2024 8:30 AM EDT Patient: Dong Whitmore : 1950 PCP: Haider Hickman MD SUBJECTIVE This is a 73 y.o. male that presents today as a dm2 and had partial toe amputations to the right hallux and right 2nd digit Patient has chronic pain to the distal aspect of the DIPJ region of the right 3rd digit Patient hashad unrelenting pain to the right 3rd toe [...] exhausted conservative care and wishes for surgical intervention.They have attempted numerous conservative options including: Shoe gear modifications, anti-inflammat ory medications both steroid all and nonsteroidal, orthotic [...] TONGUE EVERY 5 MINS, UP TO 3 DOSESAS NEEDED FOR CHEST PAIN, Disp: , Rfl: pioglitazone (Actos) 30 MG tablet, Take 30 mg by mouth in the morning., Disp: , Rfl: simvastatin (Zocor) 40 MG tablet, Take 40 mg by mouth at bedtime., Disp: , Rfl: sodium bicarbonate 650 MG tablet, Take 1,300 mg by mouth in the morning and 1,300 mg in the eveningand 1,300 mg before bedtime., Disp: , Rfl: [...] Partner Violence: Unknown (11/30/2023) [facility] [place] [employer] Fear of [...] pain with direct palpation of the distal DIPJjoint right 3rd digit medial deviation of the [...] toe amputation to the right 3rd digit forpain relief. Patient like to have done under [...] above-stated procedure. AUGUSTIN Horn documented in this encounterMercy Hospital [id number] History of Present illness Narrative* Bassam Aguilar DPM - 06/18/2024 10:00 AM EDT Patient: Dong Whitmore : 1950 PCP: Haider [...] opinion for possible toe amputation by Dr. Freeman . Patient has had unrelenting pain to [...] TONGUE EVERY 5 MINS, UP TO 3 DOSESAS NEEDED FOR CHEST PAIN, Disp: , Rfl: pioglitazone (Actos) 30 MG tablet, Take 30 mg by mouth in the morning., Disp: , Rfl: simvastatin (Zocor) 40 MG tablet, Take 40 mg by mouth at bedtime., Disp: , Rfl: sodium bicarbonate 650 MG tablet, Take 1,300 mg by mouth in the morning and 1,300 mg in the eveningand 1,300 mg before bedtime., Disp: , Rfl: [...] Partner Violence: Unknown (11/30/2023) Received from [facility] [place] [facility] Fear of [...] condition with diabetic polyneuropathy, 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 terminal make up operator insulin use ([facility]) 3. Amputation of right great toe ([facility]) PLAN Have discussed and patient the past with partial or total toe amputation to the right 3rd digit forpain relief. Patient like to have done under local anesthesia and has consultation tomorrow with . He would like to have this done as soon as possible and discussed with patient that may be able to be done as soon as this week but if not either myself for partner may be able to get casedone the following week for patient. Patient discussed with . Discussed conservative and surgical treatment options for patient today including postoperative time frame and surgical procedure in detail. Patient may continue with conservative treatments including ftor-gul-oobmzic anti- inflammatories and other treatments suggested today. Patient may want to be s cheduled for surgical intervention in the near future. DIPJ amputation of the right 3rd digit underlocal anesthetic and patient to have done in the near future by either myself or . Bassam Aguilar DPM documented in this encounterMercy Hospital [id number] History of Present illness Narrative* Chelle Brandon, MAXIMINO - 06/12/2024 9:15 AM EDTAssociated Order(s): L Inj/Asp: L subacromial bursa Post-Procedure Diagnose(s): Impingement of left shoulder Subjective Patient ID: Dong Whitmore is a 73 y.o. male. LT Shoulder Pt is RT handed. States he is better but his shoulder still hurts a lot 2 weeks 5 days ago pt fell, went to [facility] ER on 05/24/24 and had xrays done. He fell down concrete stairs and landed on the LT shoulder. DOI 05/24/24. Presents in sling, and with cane. States he uses thecane for balance issues. States he also has [...] doing pendulum exercises [place]: LT shoulder xrays [facility] 05/24/24, acetiminophen with codeine, ice, bengay [...] pt tolerated well, bandaid applied, may do acti vities as tolerated, f/u in 2 weeks. documented in this encounterMercy Hospital [id number] NoteHNO ID: [id number] Author: BRITNEY HYDE, PhD Service: ? Author Type: Psychologist Type: Progress Notes Filed: 06/07/2024 14:24 Note Text: [facility] Behavioral Medicine Group Session I have communicated my name and active licensure. The patient's identity and physical location were verified at the time of this visit. Either the patient or their legal territory sales representative has been informed of the [...] a copy of the consent form on [employer]. The patient consented to a virtual visit and their location was confirmed. Patient location: [facility] Patient Name: Dong Whitmore CC#: [id number] Date of service: June 07, 2024 Subjective: [...] additional pain management education Britney Hyde, PhD [phone] Alliance [facility]08-30-2024 History of Present illness Narrative* Britney Hyde, PhD - 06/07/2024 12:[address] [facility] Behavioral Medicine Group Session I have communicated my name and active licensure. The patient's identity and physical location wereverified at the time of this visit. Either the patient or their legal territory sales representative has been informed of the [...] a copy of the consent form on [employer]. The patient consented to a virtual visit and their location was confirmed. Patient location: [facility] confirmed Patient Name: Dong Whitmore CC#: [id number] Date of service: June 07, 2024 Subjective: [...] the limits of confidentiality in the group settingand agreed to hold in confidence all matters [...] additional pain management education Britney Hyde, PhD [phone] documented in this encounterMercy [facility]08-26-2024 Telephone encounter Note * Telephone Encounter - Naomy Mathis - 06/03/2024 10:32 AM EDT Patient called wanted to know if he is able to make an appointment. Says his shoulder is hurting worse and the site of the RT LT shoulder is turning yellow. Appointment? [facility] [id number] Miscellaneous Notes* Telephone Encounter - Naomy Mathis - 06/03/2024 10:32 AM EDT Patient called wanted to know if he is able to make an appointment. Says his shoulder is hurting worse and the site of the RT LT shoulder is turning yellow. Appointment? documented in this encounterMercy Hospital [id number] NotePatient Education Infectious Disease Cellulitis, Adult Cellulitis is [...] these instructions at home: Medicines ? Take ghwc-fvd-yihqplk and prescription medicines only as told by your doctor. ? If you were prescribed an antibiotic medicine, take it as told by your doctor. Do not stop takingit even if you start to feel better. [...] provider. Document Revised: 07/07/2022 Document Reviewed: 07/07/2022 [employer] Patient Education ? 2022 [employer] 05-06-2024 NoteHNO ID: [id number] Author: MORGAN TRINIDAD, Therapist Service: ? Author Type: Therapist Type: Progress Notes Filed: 05/07/2024 08:20 Note Text: [facility] Psychological Evaluation May 06, 2024 Dong Whitmore [facility]#: [id number] I have communicated my name and active licensure. The patient's identity and physical location were verified at the time of this visit. Either the patient or their legal territory sales representative has been informed of the risks and benefits of -- and alternatives to -- treatment through virtual visit and consents to proceed with the session remotely. The patient e-signed the Informed Consent for Psychological Evaluation AND Care Form, and the [facility] health care insurance benefits, fees for service, emergency procedures, and the limits of confidentiality that may pertain with any given case were discussed with the patient. The patient was given a copy of the consent form on [employer]. The patient consented to a virtual visit and their location was confirmed. Patient location: [place], [place] CPT Code: [id number] Virtual Psych Diagnotic Eval Appointment Start: 9 AM This 73 year old retired for 15 years (he was having some medical problems, but they offered an early [place] [facility] package that was attractive at the time) male lives with his in [place], [place]. 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 He was referred by Chiqui Robles MD for psychological evaluation in the context of chronic pain. This consultation was shared with the referral source via the [facility]. He believes the [...] score 47 04/17/2024 PHQ-9 Score 21 04/17/2024 ISABELA - 7 SCORES Score 19 02/29/2024 PROMIS [...] as needed. pioglitazone (ACT (more content not included)...[facility] 04-24-2024 NoteHNO ID: [id number] Author: CHIQUI ROBLES MD Service: ? Author Type: Physician Type: Progress Notes Filed: 04/24/2024 11:26 Note Text: [facility] STAFF PHYSICIAN NOTE OF PERSONAL [...] - psychotherapy was utilized during the visit. Lbsg-tp-gwfk time: 16999 (16-37 mins) actual time spend in psychotherapy [...] which included preparing to see the patient, asvg-zs-sylm patient care, completing clinical documentation, performing a medically appropriate examination, and counseling and educating the patient/family/caregiver. As noted, the patient's clinical situation is complex and serious with significant comorbidity of pain and functional limitations. This requires higher levels of time, intensity, and expense with longitudinal care and support. STAFF PHYSICIAN:: Chiqui Robles MD DATE of SERVICE: 04/24/2024[facility]07-17-2024 History of Present illness Narrative* Chiqui Robles MD - 04/24/2024 9:27 AM EDT [facility] STAFF PHYSICIAN NOTE OF PERSONAL [...] - psychotherapy was utilized during the visit. Fmem-us-xxah time: 84731 (16-37 mins) actual time spend in psychotherapy [...] which included preparing to see the patient, owzm-ch-larl patient care, completing clinical documentation, performing a medically appropriate examination, and counseling and educating the patient/family/caregiver. As noted, the patient's clinical situation is complex and serious with significant comorbidity of pain and functional limitations. This requires higher levels of time, intensity, and expense with longitudinal care and support. STAFF PHYSICIAN:: Chiqui Robles MD DATE of SERVICE: 04/24/2024 * Parish Rios MD - 04/24/2024 9:02 AM EDT [facility] Neurological [place] April 24, 2024 This is a face [...] the right foot. 3rd interphalangeal joint is deviatedto the left. Full range of motion in other joints without pain. ASSESSMENT: CRPS Chronic pain in toe - right foot Diabetic neuropathy PLAN: Ketamine infusion therapy [facility] Pain psychology consult Parish Tucker MD documented in this encounterMercy Health Clermont Hospital07-17-2024 NoteHNO ID: [id number] Author: PARISH RIOS MD Service: ? Author Type: Resident Type: Progress Notes Filed: 04/24/2024 11:26 Note Text: [facility] Neurological [place] April 24, 2024 This is a face [...] infusion therapy [facility] Pain psychology consult Parish Tucker, [facility]06-13-2024 Telephone encounter Note* Telephone Encounter - Emilee So RN - 03/21/2024 11:38 AM EDT Spoke with patient and notified him of provider recommendations. Verbalized understanding. Emilee So RN [facility]06-13-2024 Miscellaneous Notes* Telephone Encounter - Emilee So RN - 03/21/2024 11:38 AM EDT Spoke with patient and notified him of provider recommendations. Verbalized understanding. Emilee So RN * Telephone Encounter - Eufemia Ortiz PA-C - 03/21/2024 9:24 AM EDT Ok per Dr Araujo to proceed with trial - still recommending to keep appt with ID * Telephone Encounter - Emilee So RN - 03/19/2024 1:28 PM EDT Spoke with patient at request of planner/scheduler as patient has questions about referral to infectious disease. Patient states that he spoke with his PCP, Dr. Hickman ([phone]) who spoke with in Infectious disease at [facility]. Dr. Hickman ordered lab work [...] planned. Emilee So RN documented in this encounterMercy Health Clerm[facility] Hospital06-13-2024 Telephone encounter Note * Telephone Encounter - Eufemia Ortiz PA-C - 03/21/2024 9:24 AM EDT Ok per Dr Araujo to proceed with trial - still recommending to keep appt with ID [facility] Work Phone: 1(212) 375-618306-11-2024 Telephone encounter Note* Telephone Encounter - Emilee So RN - 03/19/2024 1:28 PM EDT Spoke with patient at request of planner/scheduler as patient has questions about referral to infectious disease. Patient states that he spoke with his PCP, Dr. Hickman ([phone]) who spoke with in Infectious disease at [facility]. Dr. Hickman ordered lab work [...] move forward as planned. Emilee So RN [facility]06-07-2024 NoteMicrobiology PROCEDURE: Blood Culture Charcoal [R1] SOURCE: Blood BODY SITE: COLLECTED DATE/TIME: 03/08/2024 08:30 EDT RECEIVED DATE/TIME: 03/08/2024 09:02 EDT START DATE/TIME: 03/08/2024 09:02 EDT FREE TEXT SOURCE: michel Hickman MD, Haider Hickman MD, Haider Bee FINAL REPORTS Final Report [] Verified Date/Time: 03/15/2024 12:00 EDT No growth at 7 days. Performing Locations R1: This test was performed at: [facility], [address] [place] [address], [id number] , , PpvwdaCleveland Clinic Mercy HospitalComment on above:Performed By: #### [id number] #### [facility] [address] [place], [place] [id number] Instructions* Patient Instructions* Senthil Giraldo MD - 02/29/2024 1:38 PM EDT - Right DRG trial - Obtain psychological evaluation report (patient reports he just had this done ~two months ago) and send to [facility] - ID consult - Rule out infectious risk with due to the dermatitis. - Follow up: Return to clinic for the above procedure documented in this encounterMercy Health Clermont Hospital05-23-2024 NoteHNO ID: [id number] Author: HERBERTH ARAUJO MD, PhD Service: ? Author Type: Physician Type: Progress Notes Filed: 03/18/2024 19:05 Note Text: [facility] New Patient Consultation Referring Physician: SELF Chief Complaint: Right third toe pain SUBJECTIVE: Dong Whitmore is a 73 year old male with a pertinent past medical history of diabetes who [facility] for the evaluation of right third toe pain. 15-year history of right third toe pain. He notes that over this time the pain has become increasingly severe has caused him significant discomfort and suffering. He has been to many specialists in the [facility] area-over the course of the past 15 [...] Mild depression 10-14 Mo (more content not included)...[facility]05-23-2024 History of Present illness Narrative* Herberth Araujo MD, PhD - 02/29/2024 1:05 PM EDT Images from the original note were not included. [facility] New Patient Consultation Referring Physician: SELF Chief Complaint: Right third toe pain SUBJECTIVE: Dong Whitmore is a 73 year old male with a pertinent past medical history of diabetes who presentsto [facility] for the evaluation of right third toe pain. 15-year history of right third toe pain. He notes that over this time the pain has become increasingly severe has caused him significant discomfort and suffering. He has been to many specialists in the [place] in [facility]-over the course of the past 15 years, there has been no unifying diagnosis to discern why this toe continues to be painful. He notes that this pain is the pain only in the third toe of his right foot there is an aching, burning, stabbing, throb. He is unsure what brings iton, he notes that it is usually worse [...] was reviewed and is consistent with the reportedmedication use. Pain medications reviewed: Yes Pertinent Imaging: [...] disturbance, mood disorder and recent psychosocial stressors. HEMATOLOGIC/LYMPHATIC/IMMUNOLOGIC: Negative for prolonged bleeding, bruising easily or [...] pertinent past medical history of diabetes who presentsto [facility] for the evaluation of right third toe pain. He describes a 15-year history of right third toe pain. He notes that over this time the pain has become increasingly severe has caused him significant discomfort and suffering. He has been to many specialists in the [facility] area-over the course of the past 15 [...] a variety of medications including gabapentin, Lyrica, amitri ptyline, Cymbalta-none of these were ever effective. On [...] done ~two months ago) and send to [facility] - ID consult [...] Herberth Araujo MD, PhD documented in this encounterMercy Health [facility]04-30-2024 Telephone encounter Note * Telephone Encounter - Lela Hyatt RN - 02/06/2024 10:51 AM EDT Called and spoke to patient. Gave him this message from Dr. Singletary: I'd suggest seeking an appointment with the following doctors who perform DRG implantation: Dr. Carlisle, Dr. Araujo, Dr. Dan, Dr. Cortés Patient voiced understanding. [facility]04-30-2024 Miscellaneous Notes* Telephone Encounter - Lela Hyatt RN - 02/06/2024 10:51 AM EDT Called and spoke to patient. Gave him this message from Dr. Singletary: I'd suggest seeking an appointment with the following doctors who perform DRG implantation: Dr. Carlisle, Dr. Araujo, Dr. Dan, Dr. Cortés Patient voiced understanding. * Telephone Encounter - Lela Hyatt RN - 02/06/2024 10:46 AM EDT ----- Message from Francosie Singletary MD sent at 02/05/2024 3:12 PM EDT ----- Do you mind calling him and giving him the number to schedule at [facility] to discuss DRG? I'd suggest seeking an appointment with the following doctors who perform DRG implantation: Dr. Carlisle, Dr. Araujo, Dr. Dan, Dr. Moo Heard and Dr. Kamara may do DRG - I'm not sure. Thanks Lela! ----- Message ----- From: Livia Lester PA-C Sent: 02/05/2024 2:07 PM EDT To: Francoise Singletary MD No one on this side of [facility] that I know of does DRG so, we also send [facility] I would just have Loricall the patient and tell him this is not something you do and tell him he needs to be seen a Main ----- Message ----- From: Francoise Singletary MD Sent: 02/05/2024 1:45 PM EDT To: TRANG Lindsey! He was supposed to get referred for consideration of DRG - the only people I know who do DRG are at [facility]. How do we refer him there? From what I remember, Van Melendez Costandi, and Moo do DRG - do you know of anyone else? documented in this encounterMercy Health [facility]04-30-2024 Telephone encounter Note * Telephone Encounter - Lela Hyatt RN - 02/06/2024 10:46 AM EDT ----- Message from Francoise Singletary MD sent at 02/05/2024 3:12 PM EDT ----- Do you mind calling him and giving him the number to schedule at [facility] to discuss DRG? I'd suggest seeking an appointment with the following doctors who perform DRG implantation: Dr. Carlisle, Dr. Araujo, Dr. Dan, Dr. Moo Heard and Dr. Kamara may do DRG - I'm not sure. Thanks Lela! ----- Message ----- From: Livia Lester PA-C Sent: 02/05/2024 2:07 PM EDT To: Francoise Singletary MD No one on this side of [facility] that I know of does DRG so, we also [facility] I would just have Loricall the patient and tell him this is not something you do and tell him he needs to be seen a Main ----- Message ----- From: Francoise Singletary MD Sent: 02/05/2024 1:45 PM EDT To: TRANG Lindsey! He was supposed to get referred for consideration of DRG - the only people I know who do DRG are at [facility]. How do we refer him there? From what I remember, [facility] Cost[facility], and Moo do DRG - do you know of anyone else? [facility]04-29-2024 Instructions* Patient Instructions* Francoise Singletary MD - 02/05/2024 1:01 PM EDT Thank you for taking the time to come and see me today! Please schedule an appointment for: [facility] Consult Please follow [facility] with [facility] Please send all of your Podiatry, Neurology, and Pain Management records to us I will refer you to a provider who performs DRG to discuss this Please come back to see me as needed documented in this encounterMercy Health Clermont Hospital04-29-2024 History of Present illness Narrative* Francoise Singletary MD - 02/05/2024 11:30 AM EDT Images from the original note were not included. [facility] Consultation Date: February [...] patient has seen other pain providers. [facility] 02/01/22 Assessment and Plan 71 [...] shortness of breath. Negative for hemoptysis, sputum productionand wheezing. Cardiovascular: Negative. Gastrointestinal: Negative. Genitourinary: Positive [...] the note after review of the complete reportand/or the images. Those areas highlighted in red [...] has caused him significant discomfort and suffering. Hehas been to many specialists in the [facility]-over the course of the past 15 years, [...] is usually worse with sitting and laying. Itcan usually go away with walking and standing, however it is not 100% reliable. He does not note the classic symptoms of painful diabetic neuropathy-he notes no significant burning in his feet, just numbness in the toes and on the bottoms of his feet. He has tried a variety of medications includinggabapentin, Lyrica, amitriptyline, Cymbalta-none of these were ever effective. 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 Unfortunately during our appointment today, [facility] was down I was unable to review [...] I noted before, he appears today while [facility] was down, and I not have [...] be some underlying pathology that might be c ausing this pain. For his pain, we discussed that there is no utility in placing back on medications that did not help, we discussed the chronic pain recovery program which she was agreeable to. I will refer him to a doctor at [facility] for consideration of DRG and to discuss the risks, benefits,alternatives. Diagnostics/Referrals: -Chronic Pain Recovery Program referral Referral to [facility] podiatry, neurology for second opinions 2. [...] with patient. The patient is in agreement withthe above and verbalized understanding. Francoise Singletary MD [...] Marital Status: Unknown Medical Decision Making The [facility] EMR was reviewed during the [...] from the shared EMR [facility] NoteHNO ID: [id number] Author: FRANCOISE SINGLETARY MD Service: ? Author Type: Physician Type: Progress Notes Filed: 02/05/2024 15:14 Note Text: [facility] Pain Management Department Consultation Date: February [...] patient has seen other pain providers. [facility] Neurology OV 02/01/22 Assessment and Plan 71 [...] has been to many specialists in the [place] area-over (more content not included)...[facility]12-04-2023 Evaluation note* Encounter Date Diagnosis Assessment Notes Treatment Notes Treatment Clinical Notes Sep, Hyperlipidemia, unspecified hyperlipidemia type (ICD-10 - E78.5) High cholesterol material was printed 05/2023 ldl 63. at target; trig 164 - on statin Sep, Type 2 diabetes mellitus with diabetic chronic kidney disease (ICD-10 - E11.22) Type 2 diabetes material was printed 1. Controlled, a Type 2 diabetes with A1c of 6.9% 2. Blood glucose levels according to Leatt 3 cgm download 08/29/23-09/11/23: Avg glucose 154. >250-3%, >180-20%, 70-180-71%, <70-5%, [...] Current use of insulin (ICD-10 - Z79.4) [facility] Other 11-16-2023 Evaluation note* Encounter Date Diagnosis Assessment Notes Treatment Notes Treatment Clinical Notes Aug, Cellulitis of right lower extremity (ICD-10 - L03.115) I did thoroughly review all the studies from [place]. I do not have any images to [...] include weight loss exercise and compression therapy. [facility] Other 09-01-2023 Evaluation note* Encounter Date Diagnosis [...] He was given a no cut [facility] Coordinator to try and a brochure to buy [...] by Kamlesh Sparrow RN, [facility]. [facility] Other 05-30-2023 Evaluation note* Encounter Date Diagnosis [...] February, Metabolic syndrome X (ICD-10 - E88.81) [facility] Other 05-09-2023 Evaluation note* Encounter Date Diagnosis [...] last visit, continue with weight loss efforts [facility] Other 04-14-2023 Evaluation note* Encounter Date Diagnosis [...] the following goals: Add flavors to vegetables [facility] Other 03-30-2023 Evaluation note* Encounter Date Diagnosis [...] Dec, Metabolic syndrome X (ICD-10 - E88.81) [facility] Other 03-23-2023 NoteCARDIAC STRESS TEST Requesting Physician: [...] interpreted and reported nuclear myocardial perfusion imaging.[id number] Evaluation note* Encounter Date Diagnosis Assessment Notes [...] following goals: 1) Increase vegetables at dinner [facility] Other 02-14-2023 Evaluation note* Encounter Date Diagnosis [...] by Kamlesh Sparrow RN, [facility]. Reviewed cgm download 11/08/22-11/20/22: Avg glucose 171. >250-1%, >180-30%, 70-180-69%, <70-0%, <540%. CV 15..2%. 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 6. Prescriptions: Acarbose sent to [facility]. Sample baylee 2 cgm given today. [...] see above Oct, Albuminuria (ICD-10 - R80.9) 7/ m/a cr ratio 70 reviewed importance of glucose/bp control to prevent further nephropathy Oct, BMI 40.0-44.9, adult (ICD-10 - Z68.41) Heart healthy diet material was printed Pt reports has apt scheduled with Dr. Kelley for weight management Oct, Other Dong was giv en a sample Baylee 2 sensor and an office owned, loaner Bearden. His phone was not compatible with Baylee 2 or 3, or Dexcom G6. He previously wore the Baylee 14 day system and did not need training on applying the device. I did train him on the use of the reader. He was vgiven samples of Grif Yeast Distiller and Skin Tac to help keep the device in place. 45 minutes were spent educating the patient by Kamlesh Sparrow RN, [facility]. [facility] Other 01-10-2023 Evaluation note* Encounter Date Diagnosis [...] program2) Try roasted cronin peppers (recipe provided) [facility] Other 11-11-2022 NotePROCEDURE: XR FOOT RT MIN [...] Electronically authenticated by: BRITTNY MORALES Date: 2022-08-19 06:17[facility]11-02-2022 Evaluation note* Encounter Date Diagnosis Assessment [...] nuts or cheese + crackers -Only likes argentine cheese,-Recommended 15g or less for snacks; so [...] likes those-Increase vegetable intake-Vegetables: corn, peas, carrots [facility] Other 10-19-2022 Evaluation note* Encounter Date Diagnosis [...] referral to Dr. Kelley for weight management [facility] Other 08-31-2022 Evaluation note* Encounter Date Diagnosis [...] and his would cook it for him [facility] Other 07-14-2022 Evaluation note* Encounter Date Diagnosis [...] improved glycemia. 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 Note pt has intolerance to glp1 class [...] of glucose/bp control to prevent further nephropathy [facility] Other 01-13-2022 Evaluation note* Encounter Date Diagnosis [...] medication issues. 6. Prescriptions: Pioglitazone sent to [facility]. Oct, Hyperlipidemia, unspecified hyperlipidemia type (ICD-10 - [...] brochure given today. Recommend call if interested. [facility] Other 10-13-2021 Evaluation note* Encounter Date Diagnosis Assessment Notes Treatment Notes Treatment Clinical Notes Jul, SANTANA (nonalcoholic steatohepatitis) (ICD-10 - K75.81) Jul, Other [facility] INDICATED ABOVE F/U HERE PRN [facility] Other Consult note* Clinical Note Date No Information [facility] Work Phone: Discharge summary* Clinical Note Date No Information [facility] Work Phone: Evaluation noteNo InformationNort [facility] Other Evaluation noteNo assessment information available [facility] Work Phone: Evaluation note* Diagnosis Chronic toe pain, right foot- Primary 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, not stated as uncontrolled Class 3 severe obesity with serious comorbidity and body mass index (BMI) of 40.0 to 44.9 in adult, unspecified obesity type (HCC) [facility] Diagnosis Chronic toe pain, right [...] limb documented [facility]* Diagnosis Adjustment disorder with depressed mood- Primary Complex regional pain syndrome type II of right lower limb Chronic toe pain, right foot Class 3 severe obesity with serious comorbidity and body mass index (BMI) of 40.0 to 44.9 in adult, unspecified obesity type (HCC) [facility]* Diagnosis Adjustment disorder with depressed mood- Primary Complex regional pain syndrome type II of right lower limb Chronic toe pain, right foot [facility]* Diagnosis Adjustment disorder with depressed mood- Primary Complex regional pain syndrome type II of right lower limb Chronic toe pain, right foot documented [facility]* Diagnosis Complex regional pain syndrome type II of right lower limb [facility]* Diagnosis Acquired deformity of right toe- Primary Diabetes 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, 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 terminal make up operator insulin use ([facility]) documented in this encounter [facility] HealthcareEvaluation note* Diagnosis Internal derangement of left shoulder- Primary Arthritis of left acromioclavicular joint Complete tear of left rotator cuff, 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 traumatic Left shoulder pain, unspecified chronicity documented in this encounter [facility] HealthcareEvaluation note* Diagnosis Acquired deformity of right toe- Primary Diabetes 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, 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 terminal make up operator insulin use ([facility]) Amputation of right great toe ([facility]) documented in this encounter [facility] HealthcareEvaluation note* Diagnosis Amputation of toe of right foot ([facility])- Primary Diabetes 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, 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 terminal make up operator insulin use ([facility]) Pain due to onychomycosis of toenails of both feet documented in this encounter [facility] HealthcareEvaluation note* Diagnosis Internal derangement of left shoulder- Primary Complete tear of left rotator cuff, 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 traumatic documented in this encounter [facility] HealthcareEvaluation note* Diagnosis Complex regional pain syndrome type II of right lower limb Chronic toe pain, right foot Class 3 severe obesity with serious comorbidity and body mass index (BMI) of 40.0 to 44.9 in adult, unspecified obesity type ([facility]) [facility] Diagnosis Right foot pain- Primary Pain in soft tissues of limb Diabetic polyneuropathy associated with type 2 diabetes mellitus ([facility]) documented in this encounter [facility] HealthcareEvaluation note* Diagnosis Acquired deformity of right toe- Primary Left shoulder pain, unspecified chronicity- Primary Arthritis of left acromioclavicular joint Glenohumeral arthritis, left Impingement of left shoulder documented in this encounter [facility] HealthcareEvaluation note* Diagnosis Acquired deformity of right toe- Primary Diabetes 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, 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 nursing home insulin use (CMS/HCC) Venous insufficiency Unspecified venous (peripheral) insufficiency Non-pressure chronic ulcer of other part of right lower leg with fat layer exposed ([facility]) Left shoulder pain, unspecified chronicity- Primary Arthritis of left acromioclavicular joint Glenohumeral arthritis, left Impingement of left shoulder documented in this encounter [facility] HealthcareEvaluation note* Diagnosis Left shoulder pain, unspecified chronicity- Primary Arthritis of left acromioclavicular joint Glenohumeral arthritis, left Impingement of left shoulder documented in this encounter [facility] HealthcareEvaluation note* Diagnosis Acquired deformity of right toe- Primary Diabetes 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, 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 nursing home insulin use ([facility]) Amputation of right great toe ([facility]) documented in this encounter [facility] HealthcareEvaluation note* Diagnosis Acquired deformity of right toe Left shoulder pain, unspecified chronicity- Primary Arthritis of left acromioclavicular joint Glenohumeral arthritis, left Impingement of left shoulder documented in this encounter [facility] HealthcareEvaluation note* Diagnosis Left shoulder pain, unspecified chronicity- Primary Arthritis of left acromioclavicular joint Glenohumeral arthritis, left Impingement of left shoulder Internal derangement of left shoulder documented in this encounter [facility] HealthcareEvaluation note* Diagnosis Acquired deformity of right toe- Primary documented in this encounter [facility] HealthcareEvaluation note* Diagnosis Internal derangement of left shoulder- Primary documented in this encounter [facility] HealthcareEvaluation note* Diagnosis Diabetes 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, 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 nursing home insulin use ([facility])- Primary Pain due to onychomycosis of toenails of both feet Venous insufficiency Unspecified venous (peripheral) insufficiency documented in this encounter [facility] HealthcareEvaluation note* Diagnosis Diabetes 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, 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 terminal make up operator insulin use ([facility])- Primary Pain due to onychomycosis of toenails of both feet Venous insufficiency Unspecified venous (peripheral) insufficiency Amputation of toe of right foot ([facility]) documented in this encounter [facility] HealthcareEvaluation note* Diagnosis Onset Date Resolution Status Admit Date Right leg pain acute March 13, 2025 1:13pm Right lumbar radiculopathy acute March 13, 2025 1:13pm [facility] Work Phone: Evaluation note* Diagnosis Asymmetrical sensorineural hearing loss- Primary Sensorineural hearing loss, asymmetrical Tinnitus, bilateral Unspecified tinnitus Balance problem Abnormality of gait documented in this encounter [facility] HealthcareEvaluation note* Diagnosis Imbalance- Primary Abnormality of gait Asymmetric SNHL (sensorineural hearing loss) Sensorineural hearing loss, asymmetrical Class 3 severe obesity due to excess calories without serious comorbidity with body mass index (BMI) of 45.0 to 49.9 in adult ([facility]) Claustrophobia Other isolated or specific phobias documented in this encounter [facility] HealthcareEvaluation note* Diagnosis Cervicalgia- Primary Imbalance Abnormality of gait Unsteadiness on feet Frequent falls documented in this encounter [facility] HealthcareEvaluation note* Diagnosis Cervicalgia- Primary Imbalance Abnormality of gait Unsteadiness on feet Frequent falls documented in this encounter [facility] HealthcareEvaluation note* Diagnosis Imbalance- Primary Abnormality of gait Asymmetric SNHL (sensorineural hearing loss) Sensorineural hearing loss, asymmetrical Cochlear hydrops of right ear documented in this encounter [facility] HealthcareEvaluation note* Diagnosis Diabetes 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, 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 nursing home insulin use (HCC)- Primary Neuropathy Mononeuritis of unspecified site Right foot pain Pain in soft tissues of limb Cervicalgia- Primary Imbalance Abnormality of gait Unsteadiness on feet Frequent falls documented [facility] encounter [facility]* Diagnosis Cervicalgia- Primary Imbalance Abnormality of gait Unsteadiness on feet Frequent falls documented in this encounter [facility]* Diagnosis Cervicalgia- Primary Imbalance Abnormality of gait Unsteadiness on feet Frequent falls Diabetes 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, 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 terminal make up operator insulin use (HCC)- Primary Pain due to onychomycosis of toenails of both feet Venous insufficiency Unspecified venous (peripheral) insufficiency documented in this encounter [facility] HealthcareEvaluation note* Diagnosis Diabetes 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, 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 terminal make up operator insulin use (HCC)- Primary Neuropathy Mononeuritis of unspecified site Diabetes 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, 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 terminal make up operator insulin use (HCC)- Primary Pain due to onychomycosis of toenails of both feet Venous insufficiency Unspecified venous (peripheral) insufficiency documented in this encounter [facility] HealthcareEvaluation note* Diagnosis Diabetes 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, 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 terminal make up operator insulin use (HCC)- Primary Neuropathy Mononeuritis of unspecified site Right foot pain Pain in soft tissues of limb Diabetes 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, 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 terminal make up operator insulin use (HCC)- Primary Pain due to onychomycosis of toenails of both feet Venous insufficiency Unspecified venous (peripheral) insufficiency documented in this encounter [facility] HealthcareEvaluation note* Diagnosis Diabetes 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, 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 nursing home insulin use (HCC)- Primary Pain due to onychomycosis of toenails of both feet Venous insufficiency Unspecified venous (peripheral) insufficiency Amputation of toe of right foot documented in this encounter [facility]* Diagnosis Asymmetrical sensorineural hearing loss- Primary Sensorineural hearing loss, asymmetrical documented in this encounter [facility]* Clinical Note Date No Information [facility] Work Phone: History general Narrative - Reported* Type Description [...] first metatarsal 2-8-19 Hospitalization History see above [facility] Other History general Narrative - Reported* Type [...] Foot Surgery 10/27/2021 Hospitalization History see above [facility] Other Hiscvcq general Narrative - Reported* Type Description Date [...] Foot Surgery 10/27/2021 Hospitalization History see above [facility] Other History of Past illness Narrative* Condition Effective Dates (start - stop) O utcome No Information [facility] Work Phone: History of Present illness Narrative* Encounter Date Complaint History Of Prese nt Illness No Information [facility] Work Phone: Hospital Discharge instructionsAmbulatory Orders* Referral to Vascular Surgery Location: None Selected [facility] Work Phone: Instructions* Date Instruction Additional Infor mation No Information [facility] Work Phone: Progress note* Clinical Note Date No Information [facility] Work Phone: Reason for referral (narrative)No reason for referral information availableLouis [facility] Work Phone: Reason for referral (narrative)* Reason For Referral No Information [facility] Work Phone: Reason for visit Narrative* Consultation (Routine) - Closed Specialty Diagnoses / Procedures Referred By Contac t Referred To Contact Neurology Diagnoses Neuropathic pain, MRI / labs @ [facility] , ref by Dr Hickman Procedures [place] OFFICE/OUTPATIENT NEW LOW MDM 30 MINUTES NEURO NEW PATIENT Haider Hickman MD [address] [place] [address] Phone: tel: fax: Matthew May DO [address] [facility] [address] [place] [id number] Phone: tel: fax: Referral ID Status Reason Start Date Expiration Date V isits Requested Visits Authorized [id number] Closed Consult and Treat 08/22/2024 02/18/2025 1 1 [facility] for [facility] Narrative* Rehabilitation - Outpatient (Routine) - Authorized Specialty Diagnoses / Procedures Referred By Contac t Referred To Contact Physical Therapy Diagnoses Imbalance Procedures [place] OFFICE/OUTPATIENT NEW HIGH MDM 60 MINUTES David Wong MD [address] [address] Phone: tel: fax: Morgan Arnold, PT [address] [place] [address] Phone: tel: fax: Referral ID Status Reason Start Date Expiration Date Visits Requested Visits Authorized [id number] Authorized Consult and Treat 03/31/2025 10/08/2025 1 5 [facility]Reason for [facility] Narrative* Rehabilitation - Outpatient (Routine) - Authorized Specialty Diagnoses / Procedures Referred By Contac t Referred To Contact Physical Therapy Diagnoses Imbalance Procedures [place] OFFICE/OUTPATIENT NEW HIGH MDM 60 MINUTES David Wong MD 112 [facility] [address] [place] [address] Phone: tel: fax: Morgan Arnold, PT [address] [place] [address] Phone: tel: fax: Referral ID Status Reason Start Date Expiration Date Visits Requested Visits Authorized [id number] Authorized Consult and Treat 03/31/2025 10/08/2025 1 10 [facility] HealthcareReview of systems Narrative - Reported* System Pos/Neg Findings No Information [facility] Work Phone: Summary Purpose Family History No Family History Records Found Relationship Condition Age at Onset Recorded Date/T roshni family member Obesity Unknown father History of stroke Unknown Heart disease Unknown Unknown Diabetes mellitus Unknown grandparent Obesity Unknown Not Specified Unknown History of stroke Unknown sister Unknown Relationship Condition Age at Onset Recorded Date/T roshni aunt Obesity Unknown father History of stroke Unknown Heart disease Unknown Unknown Diabetes mellitus Unknown grandparent Obesity Unknown mother Unknown History of stroke Unknown sister Unknown Family Member Type Diagnosis Age At Onset No Information Advance Directives No Advanced Directives Records Found Advance Directive Response Recorded Date/ Time Advance Directives No December 13 10:47am Advance Directive Response Recorded Date/ Time Advance Directives No December 13 11:47am Directive Yes / No Effective Date File Name No Information Chief Complaint and Reason for Visit Chief Complaint Admit Date pain in toe March 13, 2025 1:13p m M79.604 M54.50 M54.16 March 13, 2025 2:2 6pm Reason for Visit Admit Date Right leg pain March 13, 2025 1:13p m Right lumbar radiculopathy March 13 1:13pm Chief Complaint e11.65 I83.811 Chief Complaint Referred By Dr. Ja Hickman For Stasis U I83.811 Dm Longer Time e11.65 Chief Complaint Admit Date pain in toe March 13, 2025 1:13p m Chief Complaint Admit Date pain in toe March 13, 2025 1:13p m M79.604 M54.50 M54.16 March 13, 2025 2:2 6pm ref by Marce Bowen for lymphedema J une 2024 11:16am Reason for Visit Admit Date Right leg pain March 13, 2025 1:13p m Right lumbar radiculopathy March 13 1:13pm Toe pain, right March 19, 2025 11:1 6am Chief Complaint Admit Date pain in toe March 13, 2025 1:13p m M79.604 M54.50 M54.16 March 13, 2025 2:2 6pm ref by Marce Bowen for lymphedema J formerly [facility] 2024 11:16am M79.604 March 19, 2025 11:5 8am 6 month March 26, 2025 12:5 7pm mri results April 03, 2025 12:5 8pm Reason for Visit Admit Date Right leg pain March 13, 2025 1:13p m Right lumbar radiculopathy March 13 1:13pm Toe pain, right March 19, 2025 11:1 6am BMI 40.0-44.9, adult March 26, 2025 12: 57pm Chronic pain of toe of right foot March 092024 12:57pm Dietary counseling and surveillance March 26, 2025 12:57pm Hyperlipidemia March 26, 2025 12:5 7pm Hypertension March 26, 2025 12:5 7pm Peripheral neuropathy March 26, 2025 12 :57pm Type 2 diabetes mellitus March 26, 2025 12:57pm Reason for Referral Specialty Diagnoses / Procedures Referred By Segundo joshua Referred To Contact Radiology Diagnoses Internal derangement of left shoulder Procedures MR shoulder left wo IV contrast Chelle Brandon NP [address] [place] [address] [address] Referral ID Status Reason Start Date Expiration Date V isits Requested Visits Authorized [id number] Pending Review 07/01/2024 12/28/2024 1 1 Specialty Diagnoses / Procedures Referred By Cindyac t Referred To Contact Orthopaedic Surgery Diagnoses Impingement of left shoulder Procedures L Inj/Asp: L subacromial bursa Chelle Brandon NP [address] [address] Referral ID Status Reason Start Date Expiration Date V isits Requested Visits Authorized [id number] Authorized 06/12/2024 12/09/2024 1 1 Specialty Diagnoses / Procedures Referred By Contac t Referred To Contact Diagnoses Acquired deformity of right toe Shyam Freeman, DPM FACFAS [address] [place] [address] Referral ID Status Reason Start Date Expiration Date V isits Requested Visits Authorized [id number] Pending Review 06/19/2024 12/16/2024 1 1 Specialty Diagnoses / Procedures Referred By Contac t Referred To Contact Diagnoses Complex regional pain syndrome type II of right lower limb Chronic toe pain, right foot Class 3 severe obesity with serious comorbidity and body mass index (BMI) of 40.0 to 44.9 in adult, unspecified obesity type (HCC) Procedures PROVIDER ORDERED FOLLOW UP OFFICE/OUTPATIENT [facility] 60 MINUTES Chiqui Robles MD [address] [id number] Referral ID Status Reason Start Date Expiration Date Visits Requested Visits Authorized [id number] Authorized PCP Requested Referral 06/25/2024 04/24/2025 1 1 Specialty Diagnoses / Procedures Referred By Contac t Referred To Contact Infectious Diseases Diagnoses Dermatitis of lower extremity Procedures CONSULT TO INFECTIOUS DISEASES OFFICE/OUTPATIENT [facility] 60 MINUTES Herberth Araujo MD, PhD [address] [place] [address] Referral ID Status Reason Start Date Expiration Date Visits Requested Visits Authorized [id number] Authorized PCP Requested Referral 02/29/2024 02/28/2025 1 1 Specialty Diagnoses / Procedures Referred By Contac t Referred To Contact Podiatry Diagnoses Chronic toe pain, right foot Painful diabetic neuropathy (HCC) Procedures CONSULT TO PODIATRY OFFICE/OUTPATIENT [facility] 60 MINUTES Francoise Singletary MD [address] [place] [address] Referral ID Status Reason Start Date Expiration Date Visits Requested Visits Authorized [id number] Authorized PCP Requested Referral 02/05/2024 02/04/2025 1 1 Specialty Diagnoses / Procedures Referred By Contac t Referred To Contact Neurology Diagnoses Chronic toe pain, right foot Painful diabetic neuropathy (HCC) Procedures CONSULT TO NEUROLOGY OFFICE/OUTPATIENT [facility] 60 MINUTES Francoise Singletary MD [address] [place] [address] Referral ID Status Reason Start Date Expiration Date Visits Requested Visits Authorized [id number] Authorized PCP Requested Referral 02/05/2024 02/04/2025 1 1 Specialty Diagnoses / Procedures Referred By Contac t Referred To [facility] [place] Diagnoses Chronic toe pain, right foot Painful diabetic neuropathy (HCC) Procedures CONSULT TO [facility] ([facility]IN) OFFICE/OUTPATIENT [facility] 60 MINUTES Francoise Singletary MD [address] [place] [id number] Referral ID Status Reason Start Date Expiration Date Visits Requested Visits Authorized [id number] Pending Review PCP Requested Referral 02/05/2024 02/04/2025 1 1 Additional Source Comments REASON FOR VISIT (unrecogniz ed section and content) Reason Comments Consult Rt foot Reason Comments Established Patient Medication Update Reason Comments Nurse Triage Call Reason Comments New Patient Specialty Diagnoses / Procedures Referred By Contac t Referred To [facility] [place] Diagnoses Complex regional pain syndrome type II of right lower limb Chronic toe pain, right foot Class 3 severe obesity with serious comorbidity and body mass index (BMI) of 40.0 to 44.9 in adult, unspecified obesity type (HCC) Procedures CONSULT TO [facility] ([facility] PAIN) OFFICE/OUTPATIENT [facility] 60 MINUTES Herberth Araujo MD, PhD [address] [place] [address] Referral ID Status Reason Start Date Expiration Date Visits Requested Visits Authorized [id number] Pending Review PCP Requested Referral 04/03/2024 04/03/2025 [...] rotator cuff, 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 traumatic Arlen Sanchez, [address] [address] Phone: tel: fax: Khai Heard, DO [address] [place] [address] Phone: tel: fax: Referral ID Status Reason Start Date Expiration Date V isits Requested Visits Authorized [id number] Closed Consult and Treat 07/23/2024 01/19/2025 1 [...] (HCC) Procedures PROVIDER ORDERED FOLLOW UP OFFICE/OUTPATIENT [facility] 60 MINUTES Chiqui Robles MD [address] [place] [address] Referral ID Status Reason Start Date Expiration Date V isits Requested Visits Authorized [id number] Closed PCP Requested Referral 06/25/2024 04/24/2025 1 [...] Comments Toenail Care Non dm nail care Reason Comments DM Foot Care Dm nial care Reason Comments Meniere's Disease Audio 03/28/25 Reason Comments Ear Problem Follow up MRI [facility] 04/08/25 Reason Comments DM Foot Care (unrecognized sect ion and content) No Status [...] CREATED AUTHOR 02/20/[address] [facility] DATE CREATED AUTHOR AUTHOR'S ORGANIZ ATION 03/09/2024 [facility] DATE CREATED AUTHOR AUTHOR'S ORGANIZ ATION 03/16/2024 [facility] DATE CREATED AUTHOR AUTHOR'S ORGANIZ ATION 08/28/[address] [facility] DATE CREATED AUTHOR AUTHOR'S ORGANIZ ATION 09/12/2024 [facility] DATE CREATED AUTHOR AUTHOR'S ORGANIZ ATION 11/06/2024 [facility] DATE CREATED AUTHOR AUTHOR'S ORGANIZ ATION 12/27/2024 [facility] DATE CREATED AUTHOR AUTHOR'S ORGANIZ ATION 01/19/2025 [facility] DATE CREATED AUTHOR AUTHOR'S ORGANIZ ATION 02/05/2025 [facility] DATE CREATED AUTHOR AUTHOR'S ORGANIZ ATION 02/21/[address] [facility] DATE CREATED AUTHOR AUTHOR'S ORGANIZ ATION 03/15/2025 [facility] DATE CREATED AUTHOR AUTHOR'S ORGANIZ ATION 04/21/2025 [facility] DATE CREATED AUTHOR AUTHOR'S ORGANIZ ATION 05/19/2025 [facility] DATE CREATED AUTHOR AUTHOR'S ORGANIZ ATION 05/24/2025 [facility] DATE CREATED AUTHOR AUTHOR'S ORGANIZ ATION 06/20/2025 [facility] DATE CREATED AUTHOR AUTHOR'S ORGANIZ ATION 06/20/2025 [facility] DATE CREATED AUTHOR AUTHOR'S ORGANIZ ATION 06/22/2025 [facility] DATE CREATED AUTHOR AUTHOR'S ORGANIZ ATION 06/23/2025 [facility] DATE CREATED AUTHOR AUTHOR'S ORGANIZ ATION 06/25/2025 [facility] DATE CREATED AUTHOR AUTHOR'S ORGANIZ ATION 06/26/2025 [facility] DATE CREATED AUTHOR AUTHOR'S ORGANIZ ATION 06/27/2025 [facility] Care [facility] (unrecognized sec tion and [...] Status: Inactive Member Role Status Dates Daniel Evreett MD Attending Provider Active Start: September 11, 2023 End: September 11, 2023 Scarlet Johnson MD Primary Care Provider Active S tart: September 11, 2023 End: September 11, 2023 Material Requirements Planning Manager Relationship Specialty Start Date End Date Miguelangel Mac MD [address] [place] [address] [address] [place] [phone] Referring Pain Management 01/29/24 Material Requirements Planning Manager Relationship Specialty Start Date End Date Miguelangel Mac MD [address] [facility] [address] [place] [address] Referring Pain Management 01/29/24 Material Requirements Planning Manager Relationship Specialty Start Date End Date Miguelangel Mac MD [address] [facility] [address] [place] [address] Referring Pain Management 01/29/24 Material Requirements Planning Manager Relationship Specialty Start Date End Date Miguelangel Mac MD [address] [place] [address] Referring Pain Management 01/29/24 Material Requirements Planning Manager Relationship Specialty Start Date End Date Haider Hickman MD [address] [place] [address] PCP - General Family Medicine 03/26/24 Miguelangel Mac MD [address] [place] [address] Referring Pain Management 01/29/24 Material Requirements Planning Manager Relationship Specialty Start Date End Date Haider Hickman MD [address] [place] [address] PCP - General Family Medicine 03/26/24 Miguelangel Mac MD [address] [place] [address] Referring Pain Management 01/29/24 Material Requirements Planning Manager Relationship Specialty Start Date End Date Haider Hickman MD [address] [place] [address] PCP - General Family Medicine 03/26/24 Miguelangel Mac MD [address] [place] [address] Referring Pain Management 01/29/24 Material Requirements Planning Manager Relationship Specialty Start Date End Date Haider Hickman MD [address] [place] [address] PCP - General Family Medicine 03/26/24 Miguelangel Mac MD [address] [place] [address] Referring Pain Management 01/29/24 Material Requirements Planning Manager Relationship Specialty Start Date End Date Haider Hickman MD [address] [place] [address] PCP - General Family Medicine 03/26/24 Miguelangel Mac MD [address] [place] [address] Referring Pain Management 01/29/24 Material Requirements Planning Manager Relationship Specialty Start Date End Date Haider Hickman MD [address] [place] [address] PCP - General Family Medicine 03/26/24 Miguelangel Mac MD [address] [place] [address] Referring Pain Management 01/29/24 Material Requirements Planning Manager Relationship Specialty Start Date End Date Haider Hickman MD [address] [place] [address] PCP - General Family Medicine 05/09/24 Material Requirements Planning Manager Relationship Specialty Start Date End Date Haider Hickman MD [address] [place] [address] PCP - General Family Medicine 05/09/24 Material Requirements Planning Manager Relationship Specialty Start Date End Date Haider Hickman MD [address] [facility] [address] PCP - General Family Medicine 05/09/24 Material Requirements Planning Manager Relationship Specialty Start Date End Date Haider Hickman MD [address] [facility] [place] [address] PCP - General Family Medicine 05/09/24 Material Requirements Planning Manager Relationship Specialty Start Date End Date Haider Hickman MD [address] [facility] [address] PCP - General Family Medicine 05/09/24 Material Requirements Planning Manager Relationship Specialty Start Date End Date Haider Hickman MD [address] [facility] [address] PCP - General Family Medicine 03/26/24 Miguelangel Mac MD [address] [place] [address] [address] [place] [address] Referring Pain Management 01/29/24 Material Requirements Planning Manager Relationship Specialty Start Date End Date Haider Hickman MD [address] [facility] [address] PCP - General Family Medicine 05/09/24 Material Requirements Planning Manager Relationship Specialty Start Date End Date Haider Hickman MD [address] [facility] [address] PCP - General Family Medicine 05/09/24 Material Requirements Planning Manager Relationship Specialty Start Date End Date Haider Hickman MD [address] [facility] [address] PCP - General Family Medicine 05/09/24 Material Requirements Planning Manager Relationship Specialty Start Date End Date Haider Hickman MD [address] [place] [address] PCP - General Family Medicine 05/09/24 Material Requirements Planning Manager Relationship Specialty Start Date End Date Haider Hickman MD [address] [place] [address] PCP - General Family Medicine 05/09/24 Material Requirements Planning Manager Relationship Specialty Start Date End Date Haider Hickman MD [address] [place] [address] PCP - General Family Medicine 05/09/24 Material Requirements Planning Manager Relationship Specialty Start Date End Date Haider Hickman MD [address] [place] [address] PCP - General Family Medicine 05/09/24 Material Requirements Planning Manager Relationship Specialty Start Date End Date Haider Hickman MD [address] [place] [address] PCP - General Family Medicine 05/09/24 Material Requirements Planning Manager Relationship Specialty Start Date End Date Haider Hickman MD [address] [place] [address] PCP - General Family Medicine 05/09/24 Material Requirements Planning Manager Relationship Specialty Start Date End Date Haider Hickman MD [address] [place] [address] PCP - General Family Medicine 05/09/24 Material Requirements Planning Manager Relationship Specialty Start Date End Date Haider Hickman MD [address] [place] [address] PCP - General Family Medicine 05/09/24 Material Requirements Planning Manager Relationship Specialty Start Date End Date Haider Hickman MD [address] [place] [address] PCP - General Family Medicine 05/09/24 Team Status: Active Member Role Status Dates Deo Hickman Primary Care Provider Active Team Status: Inactive Member Role Status Dates Deo Hickman Primary Care Provider Active Sta rt: March 13, 2025 End: March 13, 2025 Marce Bowen APRN Attending Provider Active Start: March 13, 2025 End: March 13, 2025 Team Status: Inactive Member Role Status Dates Deo Hickman Primary Care Provider Active Sta rt: March 19, 2025 End: March 19, [address]25 [address] Son[address] Active St art: March 19, 2025 End: March 19, 2025 Nat Strong NP-C Attending Provider Active Start: March 19, 2025 End: March 19, 2025 Team Status: Active Member Role Status Dates Deo Hickman Primary Care Provider Active Sta rt: March 19, 2025 Eligio Soni MD Attending Provider Active Start: March 19, 2025 Team Status: Inactive Member Role Status Dates Deo Hickman Primary Care Provider Active Sta rt: March 19, 2025 End: March 19, 2025 Eligio Soni MD Attending Provider Active Start: March 19, 2025 End: March 19, 2025 Material Requirements Planning Manager Relationship Specialty Start Date End Date Haider Hickman MD [address] [place] [address] PCP - General Family Medicine 05/09/24 Material Requirements Planning Manager Relationship Specialty Start Date End Date Haider Hickman MD [address] [place] [address] PCP - General Family Medicine 05/09/24 Team Status: Inactive Member Role Status Dates Deo Hickman Primary Care Provider Active Sta rt: March 26, 2025 End: March 26, 2025 Aldo Middleton APRN Attending Provider Active Start: March 26, 2025 End: March 26, 2025 Team Status: Inactive Member Role Status Dates Deo Hickman Primary Care Provider Active Sta rt: April 03, 2025 End: April 03, 2025 Marce Bowen APRN Attending Provider Active Start: April 03, 2025 End: April 03, 2025 Material Requirements Planning Manager Relationship Specialty Start Date End Date Haider Hickman MD [address] [facility] [address] PCP - General Family Medicine 05/09/24 Material Requirements Planning Manager Relationship Specialty Start Date End Date Haider Hickman MD [address] [facility] [address] PCP - General Family Medicine 05/09/24 Material Requirements Planning Manager Relationship Specialty Start Date End Date Haider Hickman MD [address] [facility] [address] PCP - General Family Medicine 05/09/24 Material Requirements Planning Manager Relationship Specialty Start Date End Date Haider Hickman MD [address] [facility] [address] PCP - General Family Medicine 05/09/24 Material Requirements Planning Manager Relationship Specialty Start Date End Date Haider Hickman MD [address] [facility] [address] PCP - General Family Medicine 05/09/24 Material Requirements Planning Manager Relationship Specialty Start Date End Date Haider Hickman MD [address] [facility], [place] [id number] PCP - General Family Medicine 05/09/24 Material Requirements Planning Manager Relationship Specialty Start Date End Date Haider Hickman MD [address] [place] [address] PCP - General Family Medicine 05/09/24 Material Requirements Planning Manager Relationship Specialty Start Date End Date Haider Hickman MD [address] [place] [address] PCP - General Family Medicine 05/09/24 Material Requirements Planning Manager Relationship Specialty Start Date End Date Haider Hickman MD [address] [facility] [place] [address] PCP - General Family Medicine 05/09/24 Material Requirements Planning Manager Relationship Specialty Start Date End Date Haider Hickman MD [address] [place] [address] PCP - General Family Medicine 05/09/24 Material Requirements Planning Manager Relationship Specialty Start Date End Date Haider Hickman MD [address] [facility] [place] [address] PCP - General Family Medicine 05/09/24 Name Effective Dates (start - stop) Status Members No Information Material Requirements Planning Manager Relationship Specialty Start Date End Date Haider Hickman MD [address] [place] [address] PCP - General Family Medicine 05/09/24 Goals [...] or prosecute any alcohol or drug abuse patient.[facility] the event this information is protected by the Federal Confidentiality of Alcohol and Drug Abuse Patient Records regulations: The Federal rules restrict any use of the information to criminally investigate or prosecute any alcohol or drug abuse patient.[facility] the event this information is protected by the Federal Confidentiality of Alcohol and Drug Abuse Patient Records regulations: The Federal rules restrict any use of the information to criminally investigate or prosecute any alcohol or drug abuse patient.[facility] the event this information is protected by the Federal Confidentiality of Alcohol and Drug Abuse Patient Records regulations: The Federal rules restrict any use of the information to criminally investigate or prosecute any alcohol or drug abuse patient.[facility] the event this information is protected by the Federal Confidentiality of Alcohol and Drug Abuse Patient Records regulations: The Federal rules restrict any use of the information to criminally investigate or prosecute any alcohol or drug abuse patient.[facility] the event this information is protected by the Federal Confidentiality of Alcohol and Drug Abuse Patient Records regulations: The Federal rules restrict any use of the information to criminally investigate or prosecute any alcohol or drug abuse patient.[facility] the event this information is protected by the Federal Confidentiality of Alcohol and Drug Abuse Patient Records regulations: The Federal rules restrict any use of the information to criminally investigate or prosecute any alcohol or drug abuse patient.[facility] the event this information is protected by the Federal Confidentiality of Alcohol and Drug Abuse Patient Records regulations: The Federal rules restrict any use of the information to criminally investigate or prosecute any alcohol or drug abuse patient.[facility] the event this information is protected by the Federal Confidentiality of Alcohol and Drug Abuse Patient Records regulations: The Federal rules restrict any use of the information to criminally investigate or prosecute any alcohol or drug abuse patient.[facility] the event this information is protected by the Federal Confidentiality of Alcohol and Drug Abuse Patient Records regulations: The Federal rules restrict any use of the information to criminally investigate or prosecute any alcohol or drug abuse patient.[facility] the event this information is protected by the Federal Confidentiality of Alcohol and Drug Abuse Patient Records regulations: The Federal rules restrict any use of the information to criminally investigate or prosecute any alcohol or drug abuse patient.[facility] the event this information is protected by the Federal Confidentiality of Alcohol and Drug Abuse Patient Records regulations: The Federal rules restrict any use of the information to criminally investigate or prosecute any alcohol or drug abuse patient.[facility] FOR RECORDS PERTAINING TO PATIENTS WHO [...] BE BASED ON THE PRIMARY CLINICAL RECORDS. [facility]. provides no warranty or guarantee of the accuracy or completeness of information in this document.
[2025-06-27 11:02] VITALS: BP 150/82; PULSE 74; TEMP 36.8; O2SAT 97; BMI 40.1
--- NOTE | 2025-06-27 11:15 | ECG_ITS ---
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 Measurements Intervals [place] Rate: 74 P: 123 AL: 224 QRS: 259 QRSD: 130 T: 66 QT: 426 QTc: 453 Interpretive Statements NORMAL SINUS RHYTHM 2231 First degree AV block 2450 Right bundle branch block 3534 Lateral myocardial infarction, age undetermined 0101 Possible arm leads reversed, check lead requested 9150 abnormal ECG Compared to ECG 12/05/2016 09:58:12 First degree AV block now present Myocardial infarct finding now present Electronically Signed On 06-27-2025 20:03:26 EDT by KATHERINE KNOWLES M.D.
--- NOTE | 2025-06-27 11:15 | XR_ITS ---
The [address] [address] Patient Name: LUISITO WHITMORE MRN: [id number] date: 1950 Sex: M Assigned Patient Location: ER Current Patient Location: ER Accession/Order Number: [id number] Exam Date: 06/27/2025 11:45 Report Date: 06/27/2025 12:20 At the request of: AGUSTÍN RUIZ MD Procedure: XR foot RT min 3V RIGHT FOOT - 3 views CLINICAL DATA: Diabetic foot infection. Erythema and swelling. Previous surgery. COMPARISON: 08/18/2022 AP, lateral and oblique views were obtained. There is osteopenia. There is prior amputation of the first toe at the shaft of the proximal phalanx and second toe at the metatarsal phalangeal joint. There is new amputation of the third toe at the proximal interphalangeal joint. There is some developing irregularity at the amputation site of the first toe. There is worsening deformity at the distal proximal phalanx of the fifth toe where adjacent increasing subluxation is seen. No acute fractures are identified. There is degenerative change with similar spurring along the dorsum of the tarsals. There is also degenerative change at the first metatarsal phalangeal joint. A plantar calcaneal spur is noted. No soft tissue air or radiopaque foreign bodies are identified. XR/XR foot RT min 3V IMPRESSION: OSTEOPENIA WITH POSTOPERATIVE AND DEGENERATIVE CHANGES. INCREASING DEFORMITY AT THE PROXIMAL PHALANGES OF THE FIRST AND FIFTH TOES, DESCRIBED. CORRELATION IS SUGGESTED WITH THE LOCATION OF PATIENT'S INFECTION TO DETERMINE IF THIS COULD POSSIBLY BE RELATED TO OSTEOMYELITIS. NO OTHER DEFINITE ACUTE FINDINGS. Impression dictated by: Preeti Oliva M.D. 06/27/2025 12:20 PM Dictation Location: [employer] Electronically authenticated by: [id number] Date: 06/27/2025 12:20
--- NOTE | 2025-06-27 11:16 | ED.GENADUL1 ---
HPI HPI - General Adult General Chief complaint: Extremity Problem, Nontraumatic Stated complaint: lower extremity swelling Time Seen by Provider: 06/27/25 10:55 Source: patient Mode of arrival: walk-in History of Present Illness HPI narrative: 74-year-old male presents to the emergency department for redness and swelling in his right lower extremity. He had stubbed his right hallux a week ago and lost some skin. Now his right leg is red and swollen below the knee. He states it is painful. No fever vomiting or loss of appetite. Related Data Home Medications ?Medication ?Instructions ?Recorded ?Confirmed acarbose 50 mg tablet 50 mg PO TIDWM 05/24/23 06/27/25 aspirin 81 mg tablet,delayed 81 mg PO DAILY 05/24/23 06/27/25 release (Adult Aspirin Regimen) losartan 50 mg tablet 100 mg PO DAILY 05/24/23 06/27/25 pioglitazone 30 mg tablet 30 mg PO DAILY 05/24/23 06/27/25 sodium bicarbonate 650 mg tablet 1,300 mg PO TID 05/24/23 06/27/25 bupropion HCl 300 mg 24 hr tablet, 300 mg PO DAILY 06/27/25 06/27/25 extended release buspirone 10 mg tablet 10 mg PO TID 06/27/25 06/27/25 carvedilol 12.5 mg tablet 12.5 mg PO BID 06/27/25 06/27/25 cephalexin 500 mg capsule 500 mg PO Q6H 06/27/25 06/27/25 furosemide 40 mg tablet 40 mg PO DAILY 06/27/25 06/27/25 insulin aspart U-100 100 unit/mL 1 sliding scale dose subcut 06/27/25 06/27/25 (3 mL) subcutaneous pen (Novolog USEASDIRECTD FlexPen U-100 Insulin aspart) multivitamin 1 tab PO DAILY 06/27/25 06/27/25 omega 3-rag-goq-fish oil 1,200 mg cap PO 06/27/25 (144 mg-216 mg) capsule (Fish Oil) quetiapine 50 mg tablet 50 mg PO .QHS 06/27/25 06/27/25 resmetirom 100 mg tablet 100 mg PO DAILY 06/27/25 06/27/25 (Rezdiffra) simvastatin 20 mg tablet 20 mg PO .QHS 06/27/25 06/27/25 sitagliptin phosphate 100 mg 100 mg PO DAILY 06/27/25 06/27/25 tablet (Januvia) tizanidine 4 mg tablet 4 mg PO Q6H PRN muscle spasticity 06/27/25 06/27/25 venlafaxine 75 mg tablet 75 mg PO BID 06/27/25 06/27/25 Allergies Allergy/AdvReac Type Severity Reaction Status Date / Time cefuroxime Allergy Unknown Unknown Verified 06/27/25 11:00 diflunisal (From Dolobid) Allergy Unknown Unknown Verified 06/27/25 11:00 dulaglutide (From Trulicity) Allergy Unknown Unknown Verified 06/27/25 11:00 liraglutide (From Victoza) Allergy Unknown Unknown Verified 06/27/25 11:00 rofecoxib (From Vioxx) Allergy Unknown Unknown Verified 06/27/25 11:00 celecoxib (From Celebrex) Allergy Unknown Verified 06/27/25 11:00 metformin Allergy Unknown Verified 06/27/25 11:00 naproxen (From Naprosyn) Allergy Unknown Verified 06/27/25 11:00 NSAIDS (Non-Steroidal Allergy Unknown Verified 06/27/25 11:00 Anti-Inflamma sulindac (From Clinoril) Allergy Unknown Verified 06/27/25 11:00 axetil Allergy Unknown Unknown Uncoded 06/27/25 11:00 Opioid HPI Opioid Management Most Recent Opioid Data: Last Pain Scale 2 Today, 13:56 Last MAR Pain Assessment Today, 11:39 Review of Systems ROS Narrative A ten point review of systems is negative except as noted above. [facility] Medical History H/O nephrolithotomy with removal of calculi ?Z98.890 - Other specified postprocedural states (ICD-10) ?Z87.442 - Personal history of urinary calculi (ICD-10) Osteoarthritis ?M19.90 - Unspecified osteoarthritis, unspecified site (ICD-10) Amputation of toe ?S98.139A - Complete traumatic amputation of one unspecified lesser toe, initial encounter (ICD-10) H/O renal calculi ?Z87.442 - Personal history of urinary calculi (ICD-10) Obstructive sleep apnea on CPAP ?G47.33 - Obstructive sleep apnea (adult) (pediatric) (ICD-10) Neck pain ?M54.2 - Cervicalgia (ICD-10) Low back pain ?M54.50 - Low back pain, unspecified (ICD-10) Obesity ?E66.9 - Obesity, unspecified (ICD-10) Diabetes ?E11.9 - Type 2 diabetes mellitus without complications (ICD-10) Enlarged prostate ?N40.0 - Benign prostatic hyperplasia without lower urinary tract symptoms (ICD-10) Hypertension ?I10 - Essential (primary) hypertension (ICD-10) Surgical History H/O heart artery stent ?Z95.5 - Presence of coronary angioplasty implant and graft (ICD-10) Social History Little interest or pleasure in doing things: not at all Feeling down, depressed, or hopeless: not at all Exam Narrative Exam Narrative: Nurses note and vital signs reviewed and patient is not hypoxic. General: The patient appears in no apparent distress. The right hallux distal aspect has some loss of skin. The foot is red and his right lower extremity is more significantly red from his ankle up to just below his knee. It is also swollen. Head: Normocephalic, atraumatic Eye: Normal conjunctiva, no drainage Ears, Nose, Mouth, and Throat: oral mucosa is moist. Nares patent. Cardiovascular: Regular Rate and Rhythm Respiratory: Patient is in no distress, no accessory muscle use, lungs are clear to auscultation, no wheezing, rales or rhonchi Back: non-tender GI: Obese and nontender Musculoskeletal: See above Neurological: A&O, normal speech Psychiatric: Cooperative Constitutional Vital Signs, click to edit/add: Last Vital Signs Temp 98.2 F 06/27/25 11:02 Pulse 74 06/27/25 11:02 Resp 18 06/27/25 11:02 BP 150/82 H 06/27/25 11:02 Pulse Ox 97 06/27/25 11:02 O2 Del Method Room Air 06/27/25 11:02 Course Vital Signs Vital signs: Vital Signs Temperature 98.2 F 06/27/25 11:02 Pulse Rate 74 06/27/25 11:02 Respiratory Rate 18 06/27/25 11:02 Blood Pressure 150/82 H 06/27/25 11:02 Pulse Oximetry 97 06/27/25 11:02 Oxygen Delivery Method Room Air 06/27/25 11:02 Temperature 98.2 F 06/27/25 11:02 Pulse Rate 74 06/27/25 11:02 Respiratory Rate 18 06/27/25 11:02 Blood Pressure 150/82 H 06/27/25 11:02 Pulse Oximetry 97 06/27/25 11:02 Oxygen Delivery Method Room Air 06/27/25 11:02 Medical Decision Making MDM Narrative Medical decision making narrative: The patient has right leg cellulitis and appears to have osteomyelitis on his foot x-ray per radiologist. Cultures were obtained and he was given IV vancomycin and Zosyn and he is being admitted. Findings are discussed with Dr. Bennett as well as the hospitalist, Dr. Caceres. Treatment diagnosis and disposition were discussed with the patient and his . Differential Diagnosis Differential Diagnosis: Cellulitis, abscess, osteomyelitis Lab Data Lab results reviewed: Yes I reviewed the patient's lab results Labs: Lab Results 06/27/25 Range/Units 11:29 WBC 7.4 (4.0-11.0) 10^3/uL RBC 4.25 L (4.70-6.10) 10^6/uL Hgb 11.8 L (14.0-18.0) g/dL Hct 35.4 L (42.0-54.0) % MCV 83.3 (80.0-94.0) fL MCH 27.8 (25.9-34.0) pg MCHC 33.3 (29.9-35.2) g/dL RDW 13.5 (11.0-15.0) % Plt Count 276 (150-450) 10^3/uL MPV 9.4 L (9.5-13.5) fL Neut % (Auto) 79.8 H (43.0-75.0) % Lymph % (Auto) 8.6 L (20.5-60.0) % [place] % (Auto) 7.0 (1.7-12.0) % Eos % (Auto) 3.9 (0.9-7.0) % Baso % (Auto) 0.4 (0.2-2.0) % Neut # (Auto) 5.9 (1.4-6.5) 10^3/uL Lymph # (Auto) 0.6 L (1.2-3.8) 10^3/uL [place] # (Auto) 0.5 (0.3-0.8) 10^3/uL Eos # (Auto) 0.3 (0.0-0.7) 10^3/uL Baso # (Auto) 0.0 (0.0-0.1) 10^3/uL Abs Immat Gran (auto) 0.02 (0.00-0.03) 10^3/uL Imm/Tot Granulo (auto) 0.3 (0.0-0.5) % ESR 64 H (<=20) mm/hr Sodium 139 (136-145) mmol/L Potassium 3.9 (3.5-5.1) mmol/L Chloride 104 (98-107) mmol/L Carbon Dioxide 24.4 (21.0-32.0) mmol/L Anion Gap 14.5 BUN 26.0 H (7.0-18.0) mg/dL Creatinine 1.37 H (0.70-1.30) mg/dL Est GFR ( Amer) >60 (>=60 mL/min/1.73m^2) Est GFR (Non-Af Amer) 51 L (>=60 mL/min/1.73m^2) BUN/Creatinine Ratio 19.0 Glucose 142 H (74-106) mg/dL Lactate 0.7 (0.4-2.0) mmol/L Calcium 9.1 (8.5-10.1) mg/dL C-Reactive Protein 1.18 H (<=0.50) mg/dL Imaging Data Foot x-ray, right: Radiologist's impression: ITS Impressions Foot X-Ray 06/27/25 11:15 IMPRESSION: OSTEOPENIA WITH POSTOPERATIVE AND DEGENERATIVE CHANGES. INCREASING DEFORMITY AT THE PROXIMAL PHALANGES OF THE FIRST AND FIFTH TOES, DESCRIBED. CORRELATION IS SUGGESTED WITH THE LOCATION OF PATIENT'S INFECTION TO DETERMINE IF THIS COULD POSSIBLY BE RELATED TO OSTEOMYELITIS. NO OTHER DEFINITE ACUTE FINDINGS. Impression dictated by: Preeti Oliva M.D. 06/27/2025 12:20 PM Dictation Location: [facility] Electronically authenticated by: [id number] Y Date: 06/27/2025 12:20 ECG Data Attestation: I personally reviewed and interpreted this ECG as follows: (EKG on my interpretation shows sinus rhythm with a first-degree AV block) Discharge Plan Discharge Chief Complaint: Extremity Problem, Nontraumatic Clinical Impression: Cellulitis of leg, right, Osteomyelitis Patient Disposition: Admitted As Inpatient Time of Disposition Decision: 15:29 Condition: Fair
[2025-06-27] MEDS: MORPHINE SULFATE 4 MG/ML VIAL IV ×2 (11:39→13:56)
[2025-06-27 11:58] LABS: Hematocrit 35.4 % (42.0-54.0); Hemoglobin 11.8 g/dL (14.0-18.0); Immature Granulocytes Abs Auto 0.02 10^3/uL (0.00-0.03); Immature Granulocytes Pct Auto 0.3 % (0.0-0.5); Lymphocytes Absolute Auto 0.6 10^3/uL (1.2-3.8); Mean Corpuscular HGB Conc 33.3 g/dL (29.9-35.2); Mean Corpuscular Hemoglobin 27.8 pg (25.9-34.0); Mean Corpuscular Volume 83.3 fL (80.0-94.0); Platelet Count 276 10^3/uL (150-450); Red Blood Count 4.25 10^6/uL (4.70-6.10); White Blood Count 7.4 10^3/uL (4.0-11.0)
[2025-06-27 12:12] LABS: Anion Gap 14.5; Blood Urea Nitrogen 26.0 mg/dL (7.0-18.0); Calcium 9.1 mg/dL (8.5-10.1); Carbon Dioxide 24.4 mmol/L (21.0-32.0); Chloride 104 mmol/L (98-107); Estimated GFR (African America >60 (>=60 mL/min/1.73m^2); Estimated GFR (Non-African Ame 51 (>=60 mL/min/1.73m^2); Glucose 142 mg/dL (74-106); Potassium 3.9 mmol/L (3.5-5.1); Sodium 139 mmol/L (136-145)
[2025-06-27 12:16] LABS: Lactate/Lactic Acid 0.7 mmol/L (0.4-2.0)
[2025-06-27] MEDS: PIPERACILLIN SODIUM/TAZOBACTAM 3.375 GM in 0.9 % SODIUM CHLORIDE 50 ML IV ×2 (13:19→21:49)
[2025-06-27] MEDS: VANCOMYCIN HCL 1,750 MG in 0.9 % SODIUM CHLORIDE 500 ML 250 MG IV (13:57)
--- OUTSIDE RECORDS SUMMARY | 2025-06-27 16:35 | XMS_ITS | CCD ---
Author Organization [facility] ion [facility] Care Team Providers Care Broacher Name Role Phone ClaudioamintaMorgan Unavailable Aldo Middleton [...] SCARLET [place] Admitting Unavailable Eligio Soni Unavailable [phone] MD Daniel Everett Attending Provider MD [...] Attending Unavailable Deo Hickman Primary Care Provider [phone] Marce Bowen APRN Attending Provider Eligio Soni MD Attending Provider [phone] Deo Hickman Primary Care Provider Marce Bowen APRN Attending Provider Eligio Soni MD Attending Provider Aldo Middleton APRN Attending Provider [phone] Marce Bowen Admitting Unavailable Marce Bowen Attending [...] Attending Unavailable TIMMIS, DAVID H Attending Unavailable ULIS, MORGAN Blank Attending Unavailable TIMMIS, DAVID H Referring Unavailable LUIS, MORGAN Blank Attending Unavailable TIMMIS DAVID H Referring Unavailable LUIS, MORGAN Blank Attending Unavailable TIMMIS, DAVID H Referring Unavailable DOLCE, KAJAL R Attending Unavailable TIMMIS, DAVID H Attending Unavailable GABRIELA H Attending Unavailable LUIS, MORGAN Blank Attending Unavailable TIMMIS, DAVID H Referring Unavailable LUIS, MORGAN Blank Attending Unavailable TIMMIS, DAVID H Referring Unavailable GABRIELA H Attending Unavailable BASSAM AGUILAR Attending Unavailable MARIA DEL ROSARIOCARA Attending Unavailable APLING, CHELLE Blank Attending Unavailable DOLCE, SHYAM Stoner Attending Unavailable MARIA G, ARLEN Nur Attending Unavailable DOLCE, SHYAM Stoner Attending Unavailable DOLCE, SHYAM Stoner Attending Unavailable KHAI HEARD Attending Unavailable MARIA G, ARLEN Nur Referring Unavailable BASSAM AGUILAR Attending Unavailable MATTHEW MAY Attending Unavailable HAIDER HICKMAN Referring Unavailable BASSAM AGUILAR Attending Unavailable Karl, SPECIAL NEEDS TUTOR Nanette L Admitting Unavailable Karl, SPECIAL NEEDS TUTOR Nanette L Attending Unavailable Karl, SPECIAL NEEDS TUTOR Nanette L Attending Unavailable Karl, SPECIAL NEEDS TUTOR Nanette L Attending Unavailable Karl, SPECIAL NEEDS TUTOR Nanette L Attending Unavailable Karl, SPECIAL NEEDS TUTOR Nanette L Attending Unavailable Karl, SPECIAL NEEDS TUTOR Nanette L Attending Unavailable Karl, SPECIAL NEEDS TUTOR Nanette L Attending Unavailable Karl, SPECIAL NEEDS TUTOR Nanette L Attending Unavailable Karl, SPECIAL NEEDS TUTOR Nanette L Attending Unavailable Karl, SPECIAL NEEDS TUTOR Nanette L Attending Unavailable Haider Hickman Admitting Unavailable Ross, Haider E. Attending Unavailable Nanette Barajas Attending Unavailable Nanette Barajas Admitting Unavailable Brian Srinivasan, Kaia Unavailable UnavailMARY Colindres Attending Unavailable MARY APARICIO Attending Unavailable MARY APARICIO Attending Unavailable ESSENCE LAM Attending Unavailable ESSENCE LAM Attending Unavailable ELAINE FISHER Attending Unavailable Brian Srinivasan, Kaia Attending Unavailab Haider Alvarez Admitting Unavailable Haider Hickman Attending Unavailable KarlNanette veloz Admitting Unavailable Tomi Maria Attending Unavaila ble Nanette Barajas Attending Unavailable Haider Hickman Admitting Unavailable Haider Hickman Attending Unavailable Haider Hickman Referring Unavailable Allergies Allergy Classification Reported Allergen(s) Allergy Type Date of Onset Reaction(s) Facility (20 sources) Cefuroxime; Translations: [cefuroxime] Drug Allergy 06-09-20 Unknown [facility] (20 sources) celecoxib; Translations: [CELECOXIB] Drug Allergy 06-09-20 21 Unknown, Unknown Reaction [facility] (20 sources) Diflunisal; Translations: [DIFLUNISAL] Drug Allergy 06-09-20 Unknown, Unknown Reaction [facility] (20 sources) dulaglutide; Translations: [DULAGLUTIDE] Drug Allergy 05-18-20 23 Unknown, g/i [facility] (20 sources) Ibuprofen Drug Allergy Unknown [facility] (20 sources) liraglutide; Translations: [LIRAGLUTIDE] Drug Allergy 11-25-19 23 stomach upset [facility] (20 sources) metFORMIN; Translations: [metFORMIN] Drug Allergy 06-09-20 stomach upset [facility] (20 sources) Naproxen; Translations: [NAPROXEN] Drug Allergy 06-09-20 Unknown [facility] (20 sources) Sulindac; Translations: [Clinoril] Drug Allergy 07-10-20 15 Unknown [facility] (1 source) Cefuroxime Drug Allergy 07-13-20 16 [facility] (9 sources) celecoxib; Translations: [CeleBREX] Drug Allergy 07-10-20 15 [facility] (9 sources) liraglutide; Translations: [Victoza] Drug Allergy [facility] (1 source) metFORMIN Drug Allergy 06-15-20 17 [facility] (9 sources) Naproxen; Translations: [Naprosyn] Drug Allergy 07-10-20 15 [facility] (3 sources) NSAIDs; Translations: [NSAIDS (NON-STEROIDAL ANTI-INFLAMMATORY DRUG)] Drug allergy (disorder) 07-10-20 15 [facility] (9 sources) Povidone-Iodine; Translations: [Dolobid] Drug Allergy 07-10-20 15 [facility] (20 sources) Cephalosporins (Antibiotic); Translations: [cephalosporins] Propensity to adverse reactions 05-29-20 18 Unknown Reaction [facility] (20 sources) Ibuprofen; Translations: [ibuprofen] Drug Allergy 09-11-20 23 Unknown [facility] (20 sources) Sulindac; Translations: [sulindac] Drug Allergy 06-09-20 21 Unknown [facility] (12 sources) Non-steroidal anti-inflammatory agent Drug Intolerance 02-05-20 24 GI Upset [facility] (20 sources) celecoxib Drug Allergy 05-18-20 23 [...] sources) Cefuroxime; Translations: [Cefuroxime Axetil] Drug Allergy [facility] (8 sources) dulaglutide; Translations: [Trulicity] Drug Allergy [facility] (8 sources) Niacin; Translations: [niacin] Drug Allergy [facility] (8 sources) rofecoxib; Translations: [Vioxx] Drug Allergy [facility] (1 source) Cefuroxime Drug Allergy 03-26-20 [facility] (1 source) celecoxib Drug Allergy 03-26-20 [facility] (1 source) Diflunisal Drug Allergy 03-26-20 [facility] (1 source) dulaglutide Drug Allergy 03-26-20 [facility] (1 source) liraglutide Drug Allergy 03-26-20 [facility] (1 source) metFORMIN Drug Allergy 03-26-20 [facility] (1 source) Naproxen Drug Allergy 03-26-20 [facility] Medications Current Medications Medication [...] underlying condition with diabetic polyneuropathy, 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 insulin use (HCC) , Neuropathy Apply 1 [...] hydrochloride 10 mg oral tablet (20 sources) E-ochxpr-X-aspartate Receptor Antagonist Start: 05-31-2024 End: 03-31-2025 take [...] (Nitrostat) 0.4 MG SL tablet 09/20/2023 Active [place] 1-God-Aec-Fish Oil (Fi sh Oil) 1,000 mg (120 mg-180 mg) Capsule (8 sources) Start: 05-29-2018 [place] 3-Dha-Ep a-Fish Oil (Fish Oil) 1,000 mg (120 mg-180 mg) Capsule Active May 29, 2018 12:00am Complies with drug therapy Start: 05-29-2018 [place] 3-Dha-Ep a-Fish Oil (Fish Oil) 1,000 mg (120 mg-180 mg) Capsule Active May 29, 2018 12:00am Start: 05-29-2018 [place] 3-Dha-Ep a-Fish Oil (Fish Oil) 1,000 mg [...] 05/09/2023 Active take 2 tablets by mo [facility] every twenty-four hours Pioglitazone HCl [...] calcium, zinc, and/or iron-containing products FreeStyle [place] - (7 sources) FreeStyle [place] - use with baylee sensor SQ daily [...] Coronary arteriosclerosis; Translations: [Atherosclerotic heart disease of menom[place] coronary artery without angina pectoris] Onset: 9 [...] Chronic Other aftercare (1 source) termite treater (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 06-25-[address] [place] [address] Case Information Case Priority: None Programs: -- Referral Source: Charge Operator Referral Reason: Disease management Case Type: [...] neuropathy Complex renal cyst Coronary arteriosclerosis in 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 Dizziness Dizziness and giddiness Encounter for [...] mg= 1 tab(s), Oral, Daily Potassium Chloride (Lly-Txub-Yus M20) 20 mEq oral tablet, extended release, [...] Unknown cause) (more content not included)... Normal [facility] 37on 06-24-2025 37 *Increase carvedilol to 12.5mg [...] *Referral also sent for wound care clinic. [facility] Office Visiton 06-24-2025 Follow-up visit [id number] Dong Whitmore 1950 M Date Provider Department Center 06/24/2025 166-MARY APARICIO Family History Problem Relation Age of Onset Stroke Mother Stroke Father Coronary artery disease Other Diabetes Other Family Status - Relation Status Age at Mother Father Other Level of Service:99577 MA OFFICE/OUTPATIENT ESTABLISHED MOD MDM 30 MIN Reason for Visit and Comments: Coronary Artery Disease [187] Hypertension [598005] - Had labs last week. Hyperlipidemia [182] Follow-up [856378] - Patient is here today for a 3 month routine follow up. Patient states he has no cardiac complaints at this time. [facility] .Interpretation:on Interpretation: Comment Invalid Interpretation Code [facility] Comment on above: Result Comment: Not infected with HCV unless early or acute infection is suspected (which may be delayed in an immunocompromised individual), or other evidence exists to indicate HCV infection. Performed at: [facility] [id number] PhD Faye Ring Performed By: #### 2 [id number] #### [facility] [address] [place] [address] HCV Antibody RFX to Quant PC Jack 06-21-2025 HCV Ab Non-Reactive Invalid Interpretation Code Non Reactive [facility] Comment on above: Result Comment: Perf ormed at: [facility] [address] [id number] PhD Faye Ring Performed By: #### 2 [id number] #### [facility] [address] [place] [address] Ambulatory Visit Summaryon 0 06-19-2025 Ambulatory Visit [...] Nanette Do This Is Your Medications List [facility] [place]cription (Eric Prather, 5 years.) acarbose (acarbose [...] 30 mg Tab) potassium chloride (Potassium Chloride (Ahr-Cuur-Dwj M20) 20 mEq oral tablet, extended release) [...] Appointments 2024 9:20 AM EDT With: Where: [address] [address]- Monday 9:15 AM EDT With: LATRICIA SCHUSTER, Araceli Treadwell Where: [facility] [address] [place] [address]- 2024 9:40 AM EST With: Nanette Do Where: [address] [address]- 2025 8:00 AM EDT With: Where: [address] [address]- Medications What How Much When Why Instructions [...] Unchanged c (more content not included)... Normal [facility] CBC w/ Auto Diffon 5 Basophil Absolute 0.0 E9/L Normal 0.0-0.2 [facility] Comment on above: Performed By: #### 2 [id number] #### [facility] [address] [place] [address] Basophils/100 WBC (Bld) 0.6 % Normal 0.0-2.0 [facility] Comment on above: Performed By: #### 2 194537 #### [facility] [address] [place] [address] Eos Absolute 0.2 E9/L Normal 0.0-0.5 [facility] Comment on above: Performed By: #### 2 [id number] #### [facility] [address] [place] [address] Eosinophils/100 WBC (Bld) 3.1 % Normal 0.0-8.0 [facility] Comment on above: Performed By: #### 2 [id number] #### [facility] [address] [place] [address] Erythrocyte distribution width (RBC) [Ratio] 14.3 % High 10.9-14.2 [facility] Comment on above: Performed By: #### 2 [id number] #### [facility] [address] [place] [address] Hematocrit (Bld) [Volume fraction] 33.2 % Low 37.7-49.0 [facility] Comment on above: Performed By: #### 2 108952 #### [facility] [address] [place] [address] Hemoglobin (Bld) [Mass/Vol] 11.3 g/dL Low 13.5-17.5 [facility] Comment on above: Performed By: #### 2 [id number] #### [facility] [address] [place] [address] Lymph Absolute 0.7 E9/L Low 1.0-4.0 [facility] Comment on above: Performed By: #### 2 571189 #### [facility] [address] [place] [address] Lymphocytes/100 WBC (Bld) 11.1 % Low 14.0-50.0 [facility] Comment on above: Performed By: #### 2 359488 #### [facility] [address] [place] [address] MCH (RBC) [Entitic mass] 28.1 pg Normal 27.0-34.0 [facility] Comment on above: Performed By: #### 2 610904 #### [facility] [address] [place] [address] MCHC (RBC) [Mass/Vol] 34.0 g/dL Normal 31.4-36.0 [facility] Comment on above: Performed By: #### 2 [id number] #### [facility] [address] [place] [address] MCV (RBC) [Entitic vol] 82.9 fL Normal 80.0-100.0 [facility] Comment on above: Performed By: #### 2 647703 #### [facility] [address] [place] [address] [place] Absolute 0.4 E9/L Normal 0.2-1.0 [facility] Comment on above: Performed By: #### 2 183606 #### [facility] [address] [place] [address] Monocytes/100 WBC (Bld) 6.3 % Normal 4.0-14.0 [facility] Comment on above: Performed By: #### 2 884246 #### [facility] [address] [place] [address] Neutro Absolute 5.0 E9/L Normal 2.0-7.5 [facility] Comment on above: Performed By: #### 2 617952 #### [facility] [address] [place] [address] Neutro Auto 78.9 % High 36.0-75.0 [facility] Comment on above: Performed By: #### 2 907318 #### [facility] [address] [place] [address] Platelet 210.0 E9/L Normal 150.0-500.0 [facility] Comment on above: Performed By: #### 2 [id number] #### [facility] [address] [place] [address] Platelet mean volume (Bld) [Entitic vol] 8.6 fL Normal 6.4-10.8 [facility] Comment on above: Performed By: #### 2 626492 #### [facility] [address] [place] [address] RBC 4.0 E12/L Low 4.3-5.9 [facility] Comment on above: Performed By: #### 2 507448 #### [facility] [address] [place] [address] WBC 6.4 E9/L Normal 4.0-11.0 [facility] Comment on above: Performed By: #### 2 568863 #### [facility] [address] [place] [address] CMPon 06-19-2025 Albumin [Mass/Vol] 3.9 g/dL Normal 3.3-5.0 [facility] Comment on above: Performed By: #### 2 240257 #### [facility] [address] [place] [address] Albumin/Globulin [Mass ratio] 1.5 {ratio} Normal 1.1-2.2 [facility] Comment on above: Performed By: #### 2 140994 #### [facility] [address] [place] [address] Alk Phos 78 Int._Unit/L Normal 21-98 [facility] Comment on above: Performed By: #### 2 235091 #### [facility] [address] [place] [address] ALT 27 Int._Unit/L Normal 6-46 [facility] Comment on above: Performed By: #### 2 293760 #### [facility] [address] [place] [address] Anion gap [Moles/Vol] 11 mmol/L Normal 6-16 [facility] Comment on above: Performed By: #### 2 930824 #### [facility] [address] [place] [address] AST 25 Int._Unit/L Normal 5-43 [facility] Comment on above: Performed By: #### 2 [id number] #### [facility] [address] [place] [address] Bili Total 0.3 mg/dL Normal 0.0-1.1 [facility] Comment on above: Performed By: #### 2 665569 #### [facility] [address] [facility] [place] [address] BUN/Creat Ratio 22 No Units High 10-20 [facility] Comment on above: Performed By: #### 2 999482 #### [facility] [address] [place] [address] Calcium [Mass/Vol] 9.0 mg/dL Normal 8.9-11.1 [facility] Comment on above: Performed By: #### 2 012498 #### [facility] [address] [place] [address] Chloride [Moles/Vol] 106 mmol/L Normal 101-111 [facility] Comment on above: Performed By: #### 2 [id number] #### [facility] [address] [place] [address] CO2 [Moles/Vol] 22 mmol/L Normal 21-31 [facility] Comment on above: Performed By: #### 2 778782 #### [facility] [address] [place] [address] Creatinine [Mass/Vol] 1.3 mg/dL Normal 0.5-1.3 [facility] Comment on above: Performed By: #### 2 805230 #### [facility] [address] [place] [address] Globulin (S) [Mass/Vol] 2.6 g/dL Normal 1.4-4.0 [facility] Comment on above: Performed By: #### 2 440056 #### [facility] [address] [place] [address] Glucose [Mass/Vol] 203 mg/dL High 55-199 [facility] Comment on above: Performed By: #### 2 522003 #### [facility] [address] [place] [address] Potassium [Moles/Vol] 4.0 mmol/L Normal 3.5-5.3 [facility] Comment on above: Performed By: #### 2 995502 #### [facility] [address] [place] [address] Protein [Mass/Vol] 6.5 g/dL Normal 6.0-7.8 [facility] Comment on above: Performed By: #### 2 843259 #### [facility] [address] [place] [address] Sodium [Moles/Vol] 135 mmol/L Normal 135-145 [facility] Comment on above: Performed By: #### 2 035854 #### [facility] [address] [place] [address] Urea nitrogen [Mass/Vol] 28 mg/dL High 5-21 [facility] Comment on above: Performed By: #### 2 154587 #### [facility] [address] [place] [address] Family Medicine Office/Clini c Noteon 06-19-2025 Family [...] would like to try dry needling at [place]. pt feels he has tried everything and he just can't get it under control. RTC 3 months Ordered: busPIRone, 10 mg = 1 tab(s), Oral, TID, # 90 tab(s), Refills(s) 0, Pharmacy: [facility]/pharmacy #[id number], 168, cm, 06/19/25 11:19:00 EDT, Height/Length Dosing, 117.9, kg, 06/19/25 11:19:00 EDT, Weight Dosing Lab Specimen Collect 363[address] Physical Therapy Evaluation - External Facility 2. Non-smoker (Z78.9: Other specified health status) continue not smoking Ordered: busPIRone, 10 mg = 1 tab(s), Oral, TID, # 90 tab(s), Refills(s) 0, Pharmacy: [facility]/pharmacy #[id number], 168, cm, 06/19/25 11:19:00 EDT, Height/Length Dosing, 117.9, kg, 06/19/25 11:19:00 EDT, Weight Dosing Physical Therapy Evaluation - External Facility 3. BMI 40.0-44.9, adult (Z68.41: Body mass index [BMI] 40.0-44.9, adult) BMI education Ordered: busPIRone, 10 mg = 1 tab(s), Oral, TID, # 90 tab(s), Refills(s) 0, Pharmacy: [facility]/pharmacy #[id number], 168, cm, 06/19/25 11:19:00 EDT, Height/Length Dosing, 117.9, kg, 06/19/25 11:19:00 EDT, Weight Dosing Physical Therapy Evaluation - External Facility 4. Fatty liver (K76.0: Fatty (change of) liver, not elsewhere classified) will check labs today Orders: acarbose, 50 mg = 1 tab(s), Oral, TID, # 270 tab(s), Refills(s) 1, [id number], cm, 06/19/25 11:19:00 EDT, Height/Length Dosing, 117.9, kg, 06/19/25 11:19:00 EDT, Weight Dosing tizanidine, See Instructions, TAKE 1 TO 2 TABLETS BY MOUTH 4 TIMES A DAY, # 270 tab(s), Refills(s) 1, [id number] 168, cm, 06/19/25 11:19:00 EDT, Height/Length [...] neuropathy Complex renal cyst Coronary arteriosclerosis in 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 Dizziness Dizziness and giddiness Encounter for [...] electrode a (more content not included)... Normal [facility] Comment on above: Result Comment: Elec tronically Signed By: Nanette Do\.br\Date and Time Signed: 06/19/25 12:35 EDT eGFRon 06-19-2025 eGFR 57 mL/min/1.73 m2 Low >=59 [facility] Comment on above: Performed By: #### 1 [id number] #### [facility] [address] [place] [address] [facility] 05-30-20 [facility] Case Information Case Priority: None Programs: -- Referral Source: Charge Operator Referral Reason: Disease management Case Type: [...] neuropathy Complex renal cyst Coronary arteriosclerosis in 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 Dizziness Dizziness and giddiness Encounter for [...] mg= 1 tab(s), Oral, Daily Potassium Chloride (Vsw-Zzdj-Sor M20) 20 mEq oral tablet, extended release, [...] alcohol concerns: (more content not included)... Normal [facility] Reminderson 05-22-2025 Reminders Reminders From: Roya Álvarez To: PREM Bermudez; Sent: 07/17/2024 10:05:54 EDT Show up: 05/17/2025 10:05:00 EDT Subject: Renal US Due Date/Time: 05/17/2025 10:05:00 EDT Reminder Message Renal US to be done prior to 1 year appointment. [facility]. Order created today. f/u 07/23/[address] [facility] Ambulatory Visit Summaryon 0 05-20-2025 Ambulatory [...] Nanette Do This Is Your Medications List [facility] Prescription (Eric Prather, 5 years.) acarbose (acarbose [...] 30 mg Tab) potassium chloride (Potassium Chloride (Pko-Faai-Faf M20) 20 mEq oral tablet, extended release) [...] SCHUSTER, Araceli Treadwell Where: [facility] [address], [address] [place] [address] 2025 8:00 AM EDT With: Where: [facility] Family Medicine [address] [address]- Medications What How Much When Why Instructions [...] BREAKFAST (more content not included)... Normal [facility] Family Medicine Office/Clini c Noteon 05-20-2025 Family [...] directions is why he was discharged from [facility]. 3. Non-smoker (Z78.9: Other specified health status) [...] neuropathy Complex renal cyst Coronary arteriosclerosis in 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 Dizziness Dizziness and giddiness Encounter for [...] C screeni (more content not included)... Normal [facility] Comment on above: Result Comment: [...] Nanette Do This Is Your Medications List [facility] Prescription ([employer] Placlizzie, 5 years.) acarbose (acarbose [...] 30 mg Tab) potassium chloride (Potassium Chloride (Knw-Xsnw-Eik M20) 20 mEq oral tablet, extended release) [...] 10:00 AM EDT With: Nanette Do Where: [address] [address]- Monday 9:15 AM EDT With: Araceli BERMUDEZ MD Where: [facility] [address] [place] [address] 2025 8:00 AM EDT With: Where: [address] [address]- You Need to Complete the Following HCV [...] TABLET BY (more content not included)... Normal [facility] Medicine Office/Clini c Noteon 05-19-2025 Family [...] home safety screening reviewed, see # 10 [place] Advance Directives reviewed, has completed and on [...] reduce sug (more content not included)... Normal [facility] Comment on above: Result Comment: [...] Haider Bee This Is Your Medications List [facility] Prescription (Eric Prather, 5 years.) acarbose (acarbose [...] 30 mg Tab) potassium chloride (Potassium Chloride (Ebs-Yaov-Gid M20) 20 mEq oral tablet, extended release) [...] Appointments 2024 8:00 AM EDT With: Where: [address] [address]- Monday 10:00 AM EDT With: Nanette Do Where: [address] [address]- Monday 9:15 AM EDT With: LATRICIA SCHUSTER, Araceli Treadwell Where: [facility] of [address], [address] [place] [address]- Medications What How Much When Why Instructions [...] (losartan 50 (more content not included)... Normal [facility] Family Medicine Office/Clini c Noteon 04-14-2025 Family Medicine Office/Clinic Note Family Medicine Office/Clinic Note HPI Staff Dong is a 74 year old male presenting with toe pain discuss referral to pain management Former Kristofer patient Was discharged from [place] [facility] due to behaviors Toe pain: [...] this is why he was discharged from [place] [facility]. pt is looking in to psych pain management. is also thinking about going to a ketamine clinic in [place]. wants to hold off on referral to pain management at this time. will start Seroquel to take before bed to help with sleep. RTC 5 weeks Ordered: quetiapine, 50 mg = 1 tab(s), Oral, Bedtime, # 90 tab(s), Refills(s) 0, Pharmacy: [facility]/pharmacy #[id number], 168, cm, 04/14/25 10:19:00 EDT, Height/Length [...] Bedtime, # 90 tab(s), Refills(s) 0, [id number], cm, 04/14/25 10:19:00 EDT, Height/Length Dosing, 116.9, kg, 04/14/25 10:19:00 EDT, Weight Dosing 4. Obesity, morbid, BMI 40.0-49.9 (E66.01: Morbid (severe) obesity due to excess calories) see above Ordered: quetiapine, 50 mg = 1 tab(s), Oral, Bedtime, # 90 tab(s), Refills(s) 0, [id number] 168, cm, 04/14/25 10:19:00 EDT, Height/Length Dosing, 116.9, kg, 04/14/25 10:19:00 EDT, Weight Dosing 5. Non-smoker (Z78.9: Other specified health status) continue not smoking Ordered: quetiapine, 50 mg = 1 tab(s), Oral, Bedtime, # 90 tab(s), Refills(s) 0, [id number], 168, cm, 04/14/25 10:19:00 EDT, Height/Length [...] neuropathy Complex renal cyst Coronary arteriosclerosis in 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 Dizziness Dizziness and giddiness Erythema of [...] array, epidural (more content not included)... Normal [facility] Comment on above: Result Comment: Elec tronically Signed By: Nanette Do\.cyrus\Date and Time Signed: 04/14/25 16:23 EDT MR HEAD/BRAIN WO CONon 04-08 [place] [address] Magnetic Resonance Report Signed Patient: DONG WHITMORE MR#: [id number] : 1950 Acct:[id number] Age/Sex: 74 / M ADM Date: 04/08/25 Loc: MRI Attending Dr: David Wong M.D. Ordering Physician: David Wong M.D. Date of Service: 04/08/25 Procedure(s): MR head/brain wo con Accession Number(s): [id number] cc: HAIDER HICKMAN ; David Wong M.D. [place] [address] Patient Name: DONG WHITMORE MRN: [id number] date: 1950 Sex: M Assigned Patient Location: MRI Current Patient Location: MRI Accession/Order Number: [id number] Exam Date: 04/08/2025 13:09 Report Date: 04/08/2025 [...] Kunz M.D. 04/08/2025 1:17 PM Dictation Location: [place] [address] Electronically authenticated by: [id number] Y Date: 04/08/2025 13:17 Dictated By: Anup Kunz M.D. Signed By: 04/08/25 1320 DD/ 1317 TD/TT: Printed Products Assembler: [facility] Radiology, Radiologist, MD - 04/08/2025 [place] [address] Magnetic Resonance Report Signed Patient: DONG WHITMORE MR#: [id number] : 1950 Acct:[id number] Age/Sex: 74 / M ADM Date: 04/08/25 Loc: MRI Attending Dr: David Wong M.D. Ordering Physician: David Wong M.D. Date of Service: 04/08/25 Procedure(s): MR head/brain wo con Accession Number(s): [id number] cc: HAIDER HICKMAN ; David Wong M.D. [place] [address] Patient Name: DONG WHITMORE MRN: [facility]:[id number] date: 1950 Sex: M Assigned Patient Location: MRI Current Patient Location: MRI Accession/Order Number: [id number] Exam Date: 04/08/2025 13:09 Report Date: 04/08/2025 [...] Kunz M.D. 04/08/2025 1:17 PM Dictation Location: [place] [address] Electronically authenticated by: [id number] Y Date: 04/08/2025 13:17 Dictated By: Anup Kunz M.D. 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 above 250 Hz Left Ear: Mild sloping to profound sensorineural hearing loss above 1K Hz [facility] HbA1c HPLC (Bld) [Mass fract ion]Ordered By: Aldo Middleton on 03-26-2025 HbA1c (Bld) [Mass fraction] 6.1 % [facility] No Panel InformationOrdered By: Aldo Middleton on 03-26-2025 Bedside Glucose 149 [facility] US UNI ankle/arm indiceson 0 03-24-2025 US UNI ankle/arm indices [facility] [address] [place] [address] Ultrasound Report Signed Patient: Dong Whitmore MR#: [id number] : 1950 Acct:[id number] Age/Sex: 74 / M ADM Date: 03/19/25 Loc: [facility] Room: Type: [facility] Attending Dr: Eligio Soni MD Ordering Provider: [...] Soni MD,FACS,FSVS 03/24/2025 9:53 AM Dictation Location: [facility] Tech: Roya Harvey Transcribed By: CIRO 03/24/25 0953 Dictated By: Eligio Soni MD 03/24/25 0953 Signed By: 03/24/25 0953 Normal [facility] Office Visiton 03-20-2025 Follow-up visit [id number] Dong Whitmore 1950 M Date Provider Department Center 03/20/2025 [facility] Family History Problem Relation Age of Onset Coronary artery disease Other Diabetes Other Family Status - Relation Status Age at Mother Father Other Level of Service:50780 MA OFFICE/OUTPATIENT ESTABLISHED MOD MDM 30 MIN Normal [facility] ED [facility] Aronon 03-14-2025 [facility] ED [facility] Chronic Pain, Adult [...] skin (aromatherapy). Other treatments may include: ??? Nhnz-asp-mvsdjzh or prescription medicines. ??? Color, light, or sound therapy. ??? Local electrical stimulation. The electrical pulses help to relieve pain by temporarily stopping the nerve impulses that cause you to feel pain. ??? Injections. These deliver numbing or pain-relieving medicines into the spine or the area of pain. Medicines ??? Take qarn-dyn-aafhtnq and prescription medicines only as told by your health care provider. ??? Ask your health care provider if the medicine prescribed to you: ? Requires you to avoid driving or using machinery. ? Can cause constipation. You may need to take these actions to prevent or treat constipation: ? Drink enough fluid to keep your urine pale yellow. ? Take geps-wub-wdputge or prescription medicines. ? Eat foods that [...] the National Suicide Prevention Lifeline at or 892. This is open 24 hours a day. ??? Text the Crisis Text Line at 485203. This information is not intended to replace advice given to you by your health care provider. Make sure you discuss any questions you have with your health care provider. Document Revised: 05/17/2023 Document Reviewed: 04/19/2023 [employer] Patient Education ? 2023 [employer] Normal [facility] CBC w/ Auto Diffon 5 Basophil Absolute 0.0 E9/L Normal 0.0-0.2 [facility] Comment on above: Performed By: #### 2 [id number] #### [facility] [address] [place] [address] Basophils/100 WBC (Bld) 0.4 % Normal 0.0-2.0 [facility] Comment on above: Performed By: #### 2 030343 #### [facility] [address] [place] [address] Eos Absolute 0.3 E9/L Normal 0.0-0.5 [facility] Comment on above: Performed By: #### 2 623257 #### [facility] [address] [place] [address] Eosinophils/100 WBC (Bld) 3.6 % Normal 0.0-8.0 [facility] Comment on above: Performed By: #### 2 005393 #### [facility] [address] [place] [address] Erythrocyte distribution width (RBC) [Ratio] 14.9 % High 10.9-14.2 [facility] Comment on above: Performed By: #### 2 546505 #### [facility] [address] [place] [address] Hematocrit (Bld) [Volume fraction] 38.9 % Normal 37.7-49.0 [facility] Comment on above: Performed By: #### 2 082158 #### [facility] [address] [place] [address] Hemoglobin (Bld) [Mass/Vol] 13.2 g/dL Low 13.5-17.5 [facility] Comment on above: Performed By: #### 2 577648 #### [facility] [address] [place] [address] Lymph Absolute 1.3 E9/L Normal 1.0-4.0 [facility] Comment on above: Performed By: #### 2 222709 #### [facility] [address] [place] [address] Lymphocytes/100 WBC (Bld) 16.0 % Normal 14.0-50.0 [facility] Comment on above: Performed By: #### 2 139737 #### [facility] [address] [place] [address] MCH (RBC) [Entitic mass] 28.1 pg Normal 27.0-34.0 [facility] Comment on above: Performed By: #### 2 263575 #### [facility] [address] [place] [address] MCHC (RBC) [Mass/Vol] 33.8 g/dL Normal 31.4-36.0 [facility] Comment on above: Performed By: #### 2 054857 #### [facility] [address] [place] [address] MCV (RBC) [Entitic vol] 83.2 fL Normal 80.0-100.0 [facility] Comment on above: Performed By: #### 2 425013 #### [facility] [address] [place] [address] [place] Absolute 0.5 E9/L Normal 0.2-1.0 [facility] Comment on above: Performed By: #### 2 808319 #### [facility] [address] [place] [address] Monocytes/100 WBC (Bld) 6.7 % Normal 4.0-14.0 [facility] Comment on above: Performed By: #### 2 960745 #### [facility] [address] [place] [address] Neutro Absolute 5.8 E9/L Normal 2.0-7.5 [facility] Comment on above: Performed By: #### 2 995162 #### [facility] [address] [place] [address] Neutro Auto 73.3 % Normal 36.0-75.0 [facility] Comment on above: Performed By: #### 2 032435 #### [facility] [address] [place] [address] Platelet 216.0 E9/L Normal 150.0-500.0 [facility] Comment on above: Performed By: #### 2 503174 #### [facility] [address] [place] [address] Platelet mean volume (Bld) [Entitic vol] 8.8 fL Normal 6.4-10.8 [facility] Comment on above: Performed By: #### 2 812981 #### [facility] [address] [place] [address] RBC 4.7 E12/L Normal 4.3-5.9 [facility] Comment on above: Performed By: #### 2 710309 #### [facility] [address] [place] [address] WBC 7.9 E9/L Normal 4.0-11.0 [facility] Comment on above: Performed By: #### 2 854989 #### [facility] [address] [place] [address] CMPon 03-13-2025 Albumin [Mass/Vol] 4.2 g/dL Normal 3.3-5.0 [facility] Comment on above: Performed By: #### 2 033493 #### [facility] [address] [place] [address] Albumin/Globulin [Mass ratio] 1.6 {ratio} Normal 1.1-2.2 [facility] Comment on above: Performed By: #### 2 793692 #### [facility] [address] [place] [address] Alk Phos 86 Int._Unit/L Normal 21-98 [facility] Comment on above: Performed By: #### 2 306840 #### [facility] [address] [place] [address] ALT 33 Int._Unit/L Normal 6-46 [facility] Comment on above: Performed By: #### 2 004983 #### [facility] [address] [place] [address] Anion gap [Moles/Vol] 13 mmol/L Normal 6-16 [facility] Comment on above: Performed By: #### 2 372999 #### [facility] [address] [place] [address] AST 29 Int._Unit/L Normal 5-43 [facility] Comment on above: Performed By: #### 2 728970 #### [facility] [address] [place] [address] Bili Total 0.5 mg/dL Normal 0.0-1.1 [facility] Comment on above: Performed By: #### 2 535686 #### [facility] [address] [place] [address] BUN/Creat Ratio 22 No Units High 10-20 [facility] Comment on above: Performed By: #### 2 689428 #### [facility] [address] [place] [address] Calcium [Mass/Vol] 9.4 mg/dL Normal 8.9-11.1 [facility] Comment on above: Performed By: #### 2 141025 #### [facility] [address] [place] [address] Chloride [Moles/Vol] 105 mmol/L Normal 101-111 [facility] Comment on above: Performed By: #### 2 624263 #### [facility] [address] [place] [address] CO2 [Moles/Vol] 23 mmol/L Normal 21-31 [facility] Comment on above: Performed By: #### 2 693912 #### [facility] [address] [place] [address] Creatinine [Mass/Vol] 1.2 mg/dL Normal 0.5-1.3 [facility] Comment on above: Performed By: #### 2 827184 #### [facility] [address] [place] [address] Globulin (S) [Mass/Vol] 2.7 g/dL Normal 1.4-4.0 [facility] Comment on above: Performed By: #### 2 070210 #### [facility] [address] [place] [address] Glucose [Mass/Vol] 121 mg/dL Normal 55-199 [facility] Comment on above: Performed By: #### 2 632015 #### [facility] [address] [place] [address] Potassium [Moles/Vol] 4.0 mmol/L Normal 3.5-5.3 [facility] Comment on above: Performed By: #### 2 697073 #### [facility] [address] [place] [address] Protein [Mass/Vol] 6.9 g/dL Normal 6.0-7.8 [facility] Comment on above: Performed By: #### 2 889752 #### [facility] [address] [place] [address] Sodium [Moles/Vol] 137 mmol/L Normal 135-145 [facility] Comment on above: Performed By: #### 2 516822 #### [facility] [address] [place] [address] Urea nitrogen [Mass/Vol] 26 mg/dL High 5-21 [facility] Comment on above: Performed By: #### 2 478370 #### [facility] [address] [place] [address] MvwC8omj 03-13-2025 HbA1c (Bld) [Mass fraction] 6.5 % High <=5.9 [facility] Comment on above: Performed By: #### 7 [id number] #### [facility] [address] [place] [address] Lipid Panelon 03-13-2025 Cholesterol [Mass/Vol] 127 mg/dL Normal 120-200 [facility] Comment on above: Performed By: #### 2 069793 #### [facility] [address] [place] [address] Cholesterol in HDL [Mass/Vol] 37 mg/dL Invalid Interpretation Code [facility] Comment on above: Result Comment: '>= 60 LOW RISK' '<= 40 HIGH RISK' Performed By: #### 2 730397 #### [facility] [address] [place] [address] Cholesterol in LDL [Mass/Vol] 62 mg/dL Normal <=129 [facility] Comment on above: Performed By: #### 2 826185 #### [facility] [address] [place] [address] Cholesterol in VLDL [Mass/Vol] 43 mg/dL High 7-40 [facility] Comment on above: Performed By: #### 2 183637 #### [facility] [address] [place] [address] Triglyceride [Mass/Vol] 213 mg/dL High <=149 [facility] Comment on above: Performed By: #### 2 547157 #### [facility] [address] [place] [address] U MA/Cr Ratioon 03-13-2025 Microalb/Cr Ratio 32.8 mg/gm Cr High .0-30.0 [facility] Comment on above: Result Comment: 30-3 00 mg/g Cr indicates an increased risk for diabetic nephropathy. >300 mg/g Cr is consistent with clinical nephropathy. Performed By: #### 1 [id number] #### [facility] [address] [place] [address] U Creatinine 122.0 mg/dL Invalid Interpretation Code [facility] Comment on above: Performed By: #### 1 [id number] #### [facility] [address] [place] [address] U Microalb 4.0 mg/dL High 0.0-1.9 [facility] Comment on above: Performed By: #### 1 [id number] #### [facility] [address] [place] [address] X-ray reportOrdered By: Jairo Castano on 03-13-2025 Study report [facility] [address] [place] [address] XRay Report Signed Patient: Dong Whitmore MR#: [id number] : 1950 Acct:[id number] Age/Sex: 74 / M ADM Date: 5 Loc: XD Room: Type: [facility] Attending Dr: Marce Bowen APRN Copies [...] Castano M.D. 03/13/2025 5:49 PM Dictation Location: [place] [address] Transcribed By: [facility] 03/13/251748 Dictated By: Mert Castano DO 03/13/251747 Signed By: 03/13/25 174 [facility] XR lumbar spine 6V w bending on 03-13-2025 XR lumbar spine 6V w bending [facility] [address] [place] [id number] XRay Report Signed Patient: Dong Whitmore MR#: [id number] : 1950 Acct:[id number] Age/Sex: 74 / M ADM Date: 03/13/25 Loc: XD Room: Type: [facility] CL Attending Dr: Marce Bowen APRN Copies [...] Castano M.D. 03/13/2025 5:49 PM Dictation Location: [place] [address] Transcribed By: [facility] 03/13/25 174 Dictated By: Mert Castano DO 03/13/25 174 Signed By: 03/13/251748 Normal [facility] eGFRon 03-13-2025 eGFR 63 mL/min/1.73 m2 Normal >=59 [facility] Comment on above: Performed By: #### 1 [id number] #### [facility] [address] [place] [address] [facility] 03-12-20 [facility] Case Information Case Priority: None Programs: -- Referral Source: Charge Operator Referral Reason: Disease management Case Type: [...] neuropathy Complex renal cyst Coronary arteriosclerosis in [place]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 Dizziness Dizziness and giddiness Erythema of [...] mg= 1 tab(s), Oral, Daily Potassium Chloride (Wpv-Ethj-Dwz M20) 20 mEq oral tablet, extended release, [...] Multiple sclerosis (more content not included)... Normal [facility] Population Health Population Health Problems Ongoing Acquired [...] neuropathy Complex renal cyst Coronary arteriosclerosis in 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 Dizziness Dizziness and giddiness Erythema of [...] mg= 1 tab(s), Oral, Daily Potassium Chloride (Lvr-Fnlm-Spr M20) 20 mEq oral tablet, extended release, [...] - Comments: - - Intervention Frequency Status Information Assistant Learn About Triggers, Prevention and Management - [...] - Comments: - - Intervention Frequency Status Information Assistant Learn About Home Safety to Prevent Falls or Injury - - Not done - - Review Educational Material - - Not done - - Use Cane When Walking - - Not done - - Take Breaks When Needed - - Not done - - Go (more content not included)... Normal [facility] Ambulatory Visit Summaryon 0 03-06-2025 Ambulatory Visit [...] 30 mg Tab) potassium chloride (Potassium Chloride (Ppd-Cscf-Mjw M20) 20 mEq oral tablet, extended release) [...] Appointments 2024 8:40 AM EDT With: Where: [address] [address]- 2024 8:00 AM EDT With: Where: [address] [address]- Monday 9:15 AM EDT With: LATRICIA SCHUSTER, Araceli Treadwell Where: [facility] [address] [place] [address]- You Need to Schedule the Following Appointments Follow Up with Candace SCHUSTER, YFN Hatch, [facility] When: In 6 months Where: [address], [address] [address] [phone] Medications What How Much When Why Instructions [...] (nitroglycerin 0 (more content not included)... Normal [facility] Gastroenterology Office/Clin ic Noteon 03-06-2025 Gastroenterology Office/Clinic [...] year of initiating therapy Length of therapy: -USP, more data will be available in the [...] week Follow-up With When Contact Information Candace SCHUSTRE, Tomi Sheffield, YFN, MED In 6 months [address] [facility], [address] [phone] Additional Instructions: Problem List/Past Medical History Ongoing Acquired absence of right great toe 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 Acquired absence of third toe of right foot Allergic rhinitis Anticoagulated Balance problem Benign hypertension with chronic kidney disease, stage III Bilater (more content not included)... 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 hyperlipidemia Pain in right toe(s) Calculus of gallbladder without cholecystitis without obstruction Diverticulosis of intestine, part unspecified, without perforation or abscess without bleeding SANTANA (nonalcoholic steatohepatitis) Hyperlipidemia, unspecified Your Care Team Attending Physician - Haider Hickman MD Primary Care Physician - Haider Hickman MD This Is Your Medications List [facility] [place] (Eric Prather, 5 years.) acarbose (acarbose [...] 30 mg Tab) potassium chloride (Potassium Chloride (Lfq-Bhca-Kso M20) 20 mEq oral tablet, extended release) [...] Appointments 2024 8:40 AM EDT With: Where: [address] [address]- 2024 8:00 AM EDT With: Where: [facility] [address] [address]- Monday 9:15 AM EDT With: LATRICIA SCHUSTER, Araceli Treadwell Where: [facility] [address] [place] [address]- You Need to Complete the Following CBC w/ Auto Diff, Blood, Routine collect, 02/18/25, Order for future visit, Lab Collect, Coronary arteriosclerosis in men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 Type 2 diabetes mellitus with hyperlipidemia, Not Required, Print Label By Order Location Comprehensive Metabolic Panel, Blood, Routine collect, 02/18/25, Order for future visit, Lab Collect, Coronary arteriosclerosis in men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 Type 2 diabetes mellitus with hyperlipidemia, Not Required, Print Label By Order Location HgbA1c, Blood, Routine collect, 02/18/25, Order for future visit, Lab Collect, Coronary arteriosclerosis in men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 Type 2 diabetes mellitus with hyperlipidemia, Required & Missing, Print Label By Order Location Lipid Panel, Blood, Routine collect, 02/18/25, Order for future visit, Lab Collect, Coronary arteriosclerosis in 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 Type 2 diabetes mellitus with hyperlipidemia, Required & Missing, Print Label By Order Location Microalbumin Level Urine, Urine, Routine collect, 02/18/25, Order for future visit, Nurse collect, Coronary arteriosclerosis in [place]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 Type 2 diabetes mellitus with hyperlipidemia, Not Required, Print Label By Order Location Urine Microalbumin/Creatini ne Ratio, Urine, Routine collect, 02/18/25, Order for future visit, Nurse collect, Coronary arteriosclerosis in [place]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 Type 2 diabetes mellitus with hyperlipidemia, Not Required, Print Label By Order Location Medications What How Much When Why Instructions Unchanged acarbose (acarbose 25 mg oral tablet) See instructions TAKE 2 TABLETS BY MOUTH 3 TIMES A DAY Unchanged aspirin (aspirin 81 mg Oral EC Tab) 1 Tablets By Mouth Every day Unchanged bu (more content not included)... Normal [facility] Family Medicine Office/Clini c Noteon 02-18-2025 Family Medicine Office/Clinic Note Family Medicine Office/Clinic Note Chief Complaint Persistent worsening of toe pain. HPI Staff 1m follow up Re-referred to PT @ [facility]- 3 more sessions, PT said he [...] Bowel sounds Assessment/Plan 1. Coronary arteriosclerosis in men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 (I25.10: Atherosclerotic heart disease of [place] coronary artery without angina pectoris) - No [...] Pain, Adult (more content not included)... Normal [facility] Comment on above: Result Comment: Elec tronically Signed By: Kristofer SCHUSTER, Haider Sandhu.br\Date and Time Signed: 02/18/25 14:[address] Abdomen/Pelvis w/ + w/[facility] 02-[facility]-2025 CT Abdomen/Pelvis w/ + [...] MD Transcribed by: GREGORIO Technologist: SELMA Normal [facility] CT Head or Brain w/o Contras ton [...] MD Transcribed by: GREGORIO Technologist: SELMA Normal [facility] Creatinineon 02-04-2025 Creatinine [Mass/Vol] 1.3 mg/dL Normal 0.5-1.3 [facility] Comment on above: Performed By: #### 2 [id number] #### [facility] [address] [place] [address] eGFRon 02-04-2025 eGFR 57 mL/min/1.73 m2 Low >=59 [facility] Comment on above: Performed By: #### 1 [id number] #### [facility] [address] [place] [address] 36on 01-21-2025 36 Regarding lab result s [...] LE edema/weight gain. She verbalized understanding. Normal [facility] Ambulatory Visit Summaryon 0 01-20-2025 Ambulatory [...] 30 mg Tab) potassium chloride (Potassium Chloride (Gat-Bbwg-Rik M20) 20 mEq oral tablet, extended release) [...] EDT With: Kristofer SCHUSTER, Haider Bee Where: [address] [address]- 2024 8:40 AM EDT With: Where: [address] [place] [address]- 2024 8:00 AM EDT With: Where: [address] [place] [address]- Monday 9:15 AM EDT With: LATRICIA SCHUSTER, Araceli Treadwell Where: [facility] [address], [address] [place] [address]- You Need to Complete the Following CT [...] Someone Will Contact You Regarding These Appointments [facility] External Ambulatory Referral, Audiology, 01/20/25 9:54:00 EDT, Balance problem BPH with obstruction/lower urinary tract symptoms Benign hypertension with chronic kidney disease, stage III Calculus of gallbladder without cholecystitis without obstruction Complex renal cyst [facility] External Ambulatory Referral, ENT, 01/20/25 9:54:00 EDT, Balance problem BPH with obstruction/lower urinary tract symptoms Benign hypertension with chronic kidney disease, stage III Calculus of gallbladder without cholecystitis without obstruction Complex renal cyst Medications What How Much When Why Instructions Unchanged sitagliptin ( (more content not included)... 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 Did see Nanette Barajas SPECIAL NEEDS TUTOR 12/04/24 due to Rt elbow pain. Given Medrol Dosepak. XR ordered. Completed 12/04/24. Discussed referral to ortho. Pt had fallen again & returned to ER 12/05/24. Did see [facility] pain management 01/13/25. Still having pain [...] with current medications in outpatient record [id number] [facility] External Ambulatory Referral [facility] External Ambulatory Referral Influenza immunization status assessed [...] (N40.1: B (more content not included)... Normal [facility] Comment on above: Result Comment: Elec tronically Signed By: Kristofer SCHUSTER, Haidre Bee\.br\Date and Time Signed: 01/20/25 10:09 EDT [...] neuropathy Complex renal cyst Coronary arteriosclerosis in men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 Dizziness Dizziness and giddiness Erythema of [...] spur....., H (more content not included)... Normal [facility] Comment on above: Result Comment: [...] send rezdiffra or not for this patient [facility] Ambulatory Visit Summaryon 0 01-01-2025 Ambulatory [...] 30 mg Tab) potassium chloride (Potassium Chloride (Qye-Qxdp-Vtq M20) 20 mEq oral tablet, extended release) [...] EDT With: Kristofer SCHUSTER, Haider Bee Where: [address] [address]- 2024 8:00 AM EDT With: Where: [address] [address]- Monday 9:15 AM EDT With: LATRICIA SCHUSTER, Araceli Treadwell Where: [facility] [place] [address], [address] [place] [address]- Medications What How Much When Why Instructions [...] Tab) Contact (more content not included)... Normal [facility] MR ELBOW RIGHT WITHOUT CONTR Ceferino 12-19-2024 [...] MonDec 20, 2024 9:22:13 AM EDT Normal [facility] Comment on above: Order Comment: PT/FA X Injury/Trauma or Illness?:Illness/Other How long have you had these symptoms (acute/chronic)?:Chronic Reason for exam?:Right elbow pain Type of Exam?:Initial Additional signs and symptoms?:n Office Visiton 12-18-2024 Follow-up visit [id number] Dong Whitmore 1950 M Date Provider Department Center 12/18/2024 [id number]-ZHAONTESSENCE LAM [facility] Family History Problem Relation Age of Onset Coronary artery disease Other Diabetes Other Family Status - Relation Status Age at Other Level of Service:88141 MA OFFICE/OUTPATIENT ESTABLISHED MOD MDM 30 MIN Reason for Visit and Comments: Coronary Artery Disease [187] Hyperlipidemia [182] - Had routine labs with lipid panel in Oct 2024. Hypertension [691243] Pre-op Exam [[id number]] - Needs surgery clearance with Dr. Jasmine. Shortness of Breath [012035] - SOB worsening over the couple of months Normal [facility] Lab Miscellaneous-LCon 12-06 Lab Miscellaneous COMMENT Invalid Interpretation Code [facility] Comment on above: Result Comment: Test Ordered: 106022 Enhanced Liver Fibrosis (ELF) ELF(TM) Score 11.00 [...] trials. J Hepatol. 2020 Apr;73(1):26-39. Performed at: [employer] [address] [id number] PhD Faye Ring Performed By: #### 1 [id number] #### [facility] [address] [place] [address] Ambulatory Visit Summaryon 0 12-04-2024 Ambulatory Visit Summary Ambulatory Visit Summary DONG WHITMORE :1950 Visit Date:12/04/2024 Ambulatory Visit Instructions Your Diagnosis Injury of right elbow Right elbow pain BMI 40.0-44.9, adult Non-smoker Your Care Team Attending Physician - Nanette Do Primary Care Physician - Haider Hickman MD This Is Your Medications List [facility] Prescription (Eric Prather, 5 years.) acarbose (acarbose [...] 30 mg Tab) potassium chloride (Potassium Chloride (Zhr-Jxgz-Exx M20) 20 mEq oral tablet, extended release) [...] Appointments Monday 9:00 AM EST With: Where: [facility] Monday 9:45 AM EDT With: Candace SCHUSTER, Tomi Sheffield Where: [place] [id number]- Monday 10:00 AM EDT With: Kristofer SCHUSTER, Haider Bee Where: [address] [address] 2024 8:00 AM EDT With: Where: [address] [address]- Monday 9:15 AM EDT With: LATRICIA SCHUSTER, Araceli Treadwell Where: [facility] [place] [address], [address] [place] [address]- Medications What How Much When Why Instructions New methylPREDNISolone (Medrol 4 mg Tab) 1 Packets By Mouth As Directed Injury of right elbow Right elbow pain BMI 40.0-44.9, adult Non-smoker Duration: 6 Days as directed on package labeling Pickup at [facility]/pharmacy #[id number] Unchanged acarbose (acarbose 25 mg oral tablet) [...] polyunsaturate (more content not included)... Normal [facility] Family Medicine Office/Clini c Noteon 12-04-2024 [...] x ray. pt prefers to go to [facility]. will call him with results. medrol dose pack sent in. pt declines meloxicam or any other pain medication. encouraged him to use heat. he states ice is not helping at all. follow up with Dr. Hickman 2 weeks Ordered: methylPREDNISolone, = 1 packet(s), Oral, As Directed, as directed on package labeling, X 6 day(s), # 21 tab(s), Refills(s) 0, Pharmacy: [facility]/pharmacy #[id number], 168, cm, 12/04/24 13:51:00 EST, Height/Length Dosing, 122.9, kg, 12/04/24 13:51:00 EST, Weight Dosing 2. Right elbow pain (M25.521: Pain in right elbow) medrol dose pack Ordered: methylPREDNISolone, = 1 packet(s), Oral, As Directed, as directed on package labeling, X 6 day(s), # 21 tab(s), Refills(s) 0, [id number], cm, 12/04/24 13:51:00 EST, Height/Length Dosing, 122.9, kg, 12/04/24 13:51:00 EST, Weight Dosing 3. BMI 40.0-44.9, adult (Z68.41: Body mass index [BMI] 40.0-44.9, adult) BMI education given Ordered: methylPREDNISolone, = 1 packet(s), Oral, As Directed, as directed on package labeling, X 6 day(s), # 21 tab(s), Refills(s) 0, [id number], 168, cm, 12/04/24 13:51:00 EST, Height/Length Dosing, 122.9, kg, 12/04/24 13:51:00 EST, Weight Dosing 4. 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 Normal [facility] Comment on above: Result Comment: Elec tronically Signed By: Nanette Do\.br\Date and Time Signed: 12/04/24 14:24 EST Lab Miscellaneous-LCon 12-04 Test Code 938616 Invalid Interpretation Code [facility] Comment on above: Performed By: #### 1 [id number] #### [facility] [address] [place] [address] Test Name ELF Invalid Interpretation Code [facility] Comment on above: Performed By: #### 1 [id number] #### [facility] [address] [place] [address] Nursing Narrative Noteon Nursing Narrative Note Nursing Narrative Note Unable to obtain accurate fibroscan d/t body habitus. Normal [facility] Ambulatory Visit Summaryon 0 11-27-2024 Ambulatory Visit [...] 30 mg Tab) potassium chloride (Potassium Chloride (Nwo-Xkqh-Sgo M20) 20 mEq oral tablet, extended release) [...] Appointments Monday 9:00 AM EST With: Where: [facility] Monday 10:00 AM EDT With: Kristofer CSHUSTER, Haider Bee Where: [address] [address] 2024 8:00 AM EDT With: Where: [address] [address]- Monday 9:15 AM EDT With: LATRICIA SCHUSTER, Araceli Treadwell Where: [facility] [address], [address] [place] [address]- You Need to Complete the Following Lab Miscellaneous-LC, Not Specified, Routine collect, ELF, 11/27/24, Order for future visit, Lab Collect, Fatty liver, Print Label By Order Location, [id number] Medications What How Much When Why Instructions [...] body ma (more content not included)... Normal [facility] Gastroenterology Office/Clin ic Noteon 11-27-2024 Gastroenterology Office/Clinic [...] NO ACUTE CHANGES US RUQ 10/22/24 @ [place]: IMPRESSION: 1. Cholelithiasis. 2. 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 Normal [facility] Comment on above: Result Comment: [...] Hickman MD. This Is Your Medications List [facility] Prescription (Eric Prather, 5 years.) acarbose (acarbose [...] 30 mg Tab) potassium chloride (Potassium Chloride (Vrd-Jipw-Ixr M20) 20 mEq oral tablet, extended release) [...] Follow-Up Appointments Monday 9:30 AM EST With: Candcae SCHUSTER, Tomi Sheffield Where: [facility] [address] [place] [address]- Monday 10:00 AM EDT With: Kristofer SCHUSTER, Haider Bee Where: [address] [address]24 8:00 AM EDT With: Where: [address] [address]- Monday 9:15 AM EDT With: LATRICIA SCHUSTER, Araceli Treadwell Where: [facility] [place] [address], [address] [place] [address]- Medications What How Much When Why Instructions [...] 1.5 tab(s) Oral Daily Unchanged Misc Prescription (Eirc Prather, 5 years.) See instructions Stage 3a [...] Every day Unchanged potassium chloride (Potassium Chloride (Qbd-Embb-Cyq M20) 20 mEq oral tablet, extended release (more content not included)... Normal [facility] Family Medicine Office/Clini c Noteon 11-18-2024 Family [...] removal of the upper arm, which included alhowirzd-pr-fzkwto mattress sutures. The area shows good signs [...] We reviewe (more content not included)... Normal [facility] Comment on above: Result Comment: [...] Hickman MD This Is Your Medications List [facility] Prescription (Eric Yamilka, 5 years.) acarbose (acarbose [...] 30 mg Tab) potassium chloride (Potassium Chloride (Yvh-Lbnl-Xhe M20) 20 mEq oral tablet, extended release) [...] EST With: Haider Hickman MD Where: [address] [address]- Monday 9:30 AM EST With: Tomi Maria MD Where: [facility] [address] [address]- Monday 10:00 AM EDT With: Haider Hickman MD Where: [address] [address] 2024 8:00 AM EDT With: Where: [address] [address]- Monday 9:15 AM EDT With: Araceli BERMUDEZ MD Where: [facility] [address], [address] [place] [address]- Medications What How Much When [...] potassium chlorid (more content not included)... Normal [facility] Family Medicine Office/Clini c Noteon 11-12-2024 Family Medicine Office/Clinic Note Family Medicine Office/Clinic Note Chief Complaint ER follow up The patient presents with dizziness in the morning and stiffness affecting mobility. HPI Staff Pt presents today for ER follow up. Hospital: [facility] Visit date: 11/09/2024 Symptoms the patient [...] over, the patient experiences transient severe dizziness, loius to an inner ear issue. This sensation [...] on slow positional changes upon waking. Further Auburn-Hallpike maneuver to be considered if symptoms persist, with continued evaluation by an nuclear waste management engineer pending referral completion. 3. Weakness (R53.1: Weakness) [...] musculoskeletal nee (more content not included)... 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 Mixed hyperlipidemia Acquired absence of second [...] Hickman MD This Is Your Medications List [facility] Prescription (Handicap Yamilka, 5 years.) acarbose (acarbose [...] 30 mg Tab) potassium chloride (Potassium Chloride (Xqe-Yxwn-Idt M20) 20 mEq oral tablet, extended release) [...] EDT With: Kristofer SCHUSTER, Haider Bee Where: [address] [address] 2024 8:00 AM EDT With: Where: [address] [address]- Monday 9:15 AM EDT With: LATRICIA SCHUSTER, Araceli Treadwell Where: [facility] [address], [address] [place] [address]- Medications What How Much When Why Instructions [...] Every day Unchanged potassium chloride (Potassium Chloride (Itb-Tejz-Muc M20) 20 mEq oral tablet, ex (more content not included)... Normal [facility] Medicine Office/Clini c Noteon 11-04-2024 Family [...] and sporadic. The underlying coronary arteriosclerosis in menominee arteries, benign hypertension with chronic kidney disease, [...] cholelithiasis present Assessment/Plan 1. 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 No CP at this time. 2. Mixed hyperlipidemia (E78.2: Mixed hyperlipidemia) Continue on statins as before. 3. 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 [...] an i (more content not included)... Normal [facility] Comment on above: Result Comment: Elec tronically Signed By: Haider Hickman MD\.br\Date and Time Signed: 11/04/24 11:42 EST U [employer] 10-24-2024 Albumin DL <= 20 mg/L (U) [Mass/Vol] 4.0 mg/dL High 0.0-1.9 [facility] Comment on above: Performed By: #### 1 [id number] ####[facility] [id number] [place] [address] Ambulatory Visit Summaryon 0 10-15-2024 Ambulatory Visit [...] Hickman MD This Is Your Medications List [facility] Prescription (Eric Prather, 5 years.) acarbose (acarbose [...] 30 mg Tab) potassium chloride (Potassium Chloride (Ksu-Jyqg-Obw M20) 20 mEq oral tablet, extended release) [...] Appointments 2024 10:40 AM EST With: Where: [address] [address]24 10:30 AM EST With: Haider Hickman MD Where: [address] [address]24 8:00 AM EDT With: Where: [facility] Family Medicine [place] [address] [place] [address]- Monday 9:15 AM EDT With: LATRICIA SCHUSTER, Araceli Treadwell Where: [facility] [place] [address], [address] [place] [address]- Medications What How Much When Why Instructions [...] 1 Tablets (more content not included)... Normal [facility] Family Medicine Office/Clini c [...] Diff Comprehe (more content not included)... Normal [facility] Comment on above: Result Comment: Elec tronically Signed By: Kristofer SCHUSTER, Haider Sandhu.br\Date and Time Signed: 10/15/24 13:10 EST CMPon 09-10-2024 Albumin [Mass/Vol] 4.3 g/dL Normal 3.3-5.0 [facility] Comment on above: Performed By: #### 2 [id number] #### [facility] [address] [place] [address] Albumin/Globulin (S) [Mass conc ratio] 1.7 Normal 1.1-2.2 [facility] Comment on above: Performed By: #### 2 [id number] #### [facility] [address] [place] [address] ALP [Catalytic activity/Vol] 73 Int._Unit/L Normal 21-98 [facility] Comment on above: Performed By: #### 2 [id number] #### [facility] [address] [place] [address] ALT No additional P-5'-P [Catalytic activity/Vol] 23 Int._Unit/L Normal 6-46 [facility] Comment on above: Performed By: #### 2 [id number] #### [facility] [address] [place] [address] Anion gap [Moles/Vol] 12 mmol/L Normal 6-16 [facility] Comment on above: Performed By: #### 2 [id number] #### [facility] [address] [place] [address] AST [Catalytic activity/Vol] 25 Int._Unit/L Normal 5-43 [facility] Comment on above: Performed By: #### 2 [id number] #### [facility] [address] [place] [address] Bilirubin [Mass/Vol] 0.5 mg/dL Normal 0.0-1.1 [facility] Comment on above: Performed By: #### 2 [id number] #### [facility] [address] [place] [address] Calcium [Mass/Vol] 9.2 mg/dL Normal 8.9-11.1 [facility] Comment on above: Performed By: #### 2 [id number] #### [facility] [address] [place] [address] Chloride [Moles/Vol] 108 mmol/L Normal 101-111 [facility] Comment on above: Performed By: #### 2 [id number] #### [facility] [address] [place] [address] CO2 [Moles/Vol] 26 mmol/L Normal 21-31 [facility] Comment on above: Performed By: #### 2 [id number] #### [facility] [address] [place] [address] Creatinine [Mass/Vol] 1.3 mg/dL Normal 0.5-1.3 [facility] Comment on above: Performed By: #### 2 [id number] #### [facility] [address] [place] [address] Globulin (S) [Mass/Vol] 2.5 g/dL Normal 1.4-4.0 [facility] Comment on above: Performed By: #### 2 [id number] #### [facility] [address] [place] [address] Glucose [Mass/Vol] 137 mg/dL Normal 55-199 [facility] Comment on above: Performed By: #### 2 [id number] #### [facility] [address] [place] [address] Potassium [Moles/Vol] 4.7 mmol/L Normal 3.5-5.3 [facility] Comment on above: Performed By: #### 2 [id number] #### [facility] [address] [place] [address] Protein [Mass/Vol] 6.8 g/dL Normal 6.0-7.8 [facility] Comment on above: Performed By: #### 2 [id number] #### [facility] [address] [place] [address] Sodium [Moles/Vol] 141 mmol/L Normal 135-145 [facility] Comment on above: Performed By: #### 2 [id number] #### [facility] [address] [place] [address] Urea nitrogen [Mass/Vol] 28 mg/dL High 5-21 [facility] Comment on above: Performed By: #### 2 [id number] #### [facility] [address] [place] [address] Urea nitrogen/Creatinine [Mass ratio] 22 No Units High 10-20 [facility] Comment on above: Performed By: #### 2 [id number] #### [facility] [address] [place] [address] Magnesiumon 09-10-2024 Magnesium [Mass/Vol] 1.8 mg/dL Normal 1.3-2.4 [facility] Comment on above: Performed By: #### 2 [id number] #### [facility] [address] [place] [address] eGFRon 09-10-2024 eGFR 57 mL/min/1.73 m2 Low >=59 [facility] Comment on above: Performed By: #### 1 [id number] #### [facility] [address] [place] [address] Family Medicine Office/Clini c Noteon 09-09-2024 Family [...] involvement and proprioceptive complications. Consider assessment at [facility] for balance and gait evaluation. Discuss with [...] manage morbid obesity. Possible consultation with a aging department supervisor for weight management strategies. Ordered: Body [...] is fro (more content not included)... Normal [facility] Comment on above: Result Comment: [...] at 6.25mg BID. Follow-up 2-3 months. THanks [facility] Ambulatory Visit Summaryon 1 10-15-2023 Ambulatory Visit [...] Hickman MD This Is Your Medications List [facility] Prescription (Handicap Placard, 5 years.) acarbose (acarbose [...] 30 mg Tab) potassium chloride (Potassium Chloride (Wml-Qdlq-Rmj M20) 20 mEq oral tablet, extended release) [...] With: Kristofer SCHUSTER, Haider Bee Where: [address] [address]24 8:00 AM EDT With: Where: [address] [address]- Monday 9:15 AM EDT With: LATRICIA SCHUSTER, Araceli Treadwell Where: [facility] [address], [address] [place] [address]- Medications What How Much When Why Instructions [...] Every day Unchanged potassium chloride (Potassium Chloride (Pqj-Gbij-Gei M20) 20 mEq oral tablet, extended release) 1 Tablets By Mouth Every day Unchanged pregabalin (Lyrica 75 mg Cap) 1 Capsules By Mouth 2 times a day Unchanged simvastatin (simvastatin 40 mg Tab) 1 Tablets (more content not included)... Normal [facility] Family Medicine Office/Clini c [...] interactions b (more content not included)... Normal [facility] Comment on above: Result Comment: Elec tronically Signed By: Kristofer SCHUSTER, Haider Bee\.br\Date and Time Signed: 08/15/24 11:26 EST OCTAVIOOVon 08-14-2024 [facility] Office Visit (NPRC21 ) DONG WHITMORE ([id number]) 1950 M Date Time Provider Department 08/14/24 10:00 AM CHIQUI ROBLES NPRC21 During your visit today, we recorded the following information about you: Pulse Respiration Blood pressure Weight 59/minute 16/minute 137/69 117.2 kg Claudia Chilel MD 08/14/2024 10:51 AM Signed THE [facility] [place] August 14, 2024 This is a face [...] MD, AMANDA August 14, 2024 10:37 AM Cihqui Robles MD 08/26/2024 4:34 PM Addendum [facility] STAFF PHYSICIAN NOTE OF PERSONAL [...] - psychotherapy was utilized during the visit. Fadq-rq-bxxg time: 82254 (16-37 mins) actual time spend in psychotherapy 18 minutes Type of therapeutic intervention:Supporti ve Target symptoms: Pain coping skills and Acceptance and adapting Progress/Session notes:processing Interactive Complexity: None STAFF PHYSICIAN:: Chiqui Robles MD DATE of SERVICE: 08/14/2024 Referring Provider: CHIQUI ROBLES [[id number]] Allergies As of Date: 08/14/2024 Noted Allergy [...] [E66.813, E66.01, Z68.41] Order(s):PROVIDER ORDERED FOLLOW UP [[id number]] Order #: [id number]: 1 Prescriptions as of 08/26/2024 - pregabalin (LYRICA) 75 mg capsule Take 75 mg by mouth two times a day. - memantine (NAMENDA) (more content not included)... Normal [place] [facility] Office Visiton 08-07-2024 Follow-up visit [id number] Dong Whitmore Boom 1950 M Date Provider Department Center 08/07/2024 00083-IEKXRKESSENCE LAM DALTON Sarkar Family History Problem Relation Age of Onset Coronary artery disease Other Diabetes Other Family Status - Relation Status Age at Other Level of Service:36810 MA OFFICE/OUTPATIENT ESTABLISHED MOD MDM 30 MIN Reason for Visit and Comments: Hypertension [268971] - He brought BP log from home with him today. Readings are usually in the 130-140's systolic. Hyperlipidemia [182] Coronary Artery Disease [187] - Denies chest pain and SOB. Normal [facility] Ambulatory Visit Summaryon 1 Ambulatory Visit [...] 30 mg Tab) potassium chloride (Potassium Chloride (Ijk-Frfk-Hsd M20) 20 mEq oral tablet, extended release) [...] EST With: Haider Hickman MD Where: [address] [address]- Monday 3:30 PM EST With: Haider Hickman MD Where: [address] [address]- 2024 8:00 AM EDT With: Where: [facility] Medicine [address] [address]- Monday 9:15 AM EDT With: LATRICIA SCHUSTER, Araceli Treadwell Where: [facility] [place] [facility] [address], [address] [place] [address]- Someone Will Contact You Regarding These Appointments [facility] External Ambulatory Referral, Neurology, 08/01/24 12:15:00 EDT, [...] 1 Table (more content not included)... Normal [facility] Family Medicine Office/Clini c [...] E&M of Est. Patient High 40-54 Min 85866 [facility] External Ambulatory Referral Prolonged OV 15 min 96226 2. Unspecified mononeuropathy of right lower limb [...] E&M of Est. Patient High 40-54 Min 60157 [facility] External Ambulatory Referral Prolonged OV 15 min 71399 3. BMI 40.0-44.9, adult (Z68.41: Body mass index [BMI] 40.0-44.9, adult) Discussed the importance of lifestyle changes, including dietary modifications and physical activity, to manage BMI. Addressed the potential contributions of morbid obesity to peripheral neuropathic symptoms. Ordered: Body Mass Index (BMI) documented 3008F Current tobacco non-user 1036F Depression Screening Positive 3354F E&M of Est. Patient High 40-54 Min 95218 Fall Risk Screen 2 or more w/injury 1100F [facility] External (more content not included)... Normal [facility] Comment on above: Result Comment: [...] other machine again): L sitting 175/112 Normal [facility] Telephoneon 07-23-2024 Telephone [id number] Dong Whitmore 1950 M Date Provider Department Center 07/23/2024 928-BRITNEY MURPHY DALTON Sarkar Family History Problem Relation Age of Onset Coronary artery disease Other Diabetes Other Family Status - Relation Status Age at Other Normal [facility] Office Visiton 07-19-2024 Follow-up visit [id number] Dong Whitmore 1950 M Date Provider Department Center 07/19/2024 [facility]8-ELAINE FISHER CARD Jessie Hos Family History Problem Relation Age of Onset Coronary artery disease Other Diabetes Other Family Status - Relation Status Age at Other Level of Service:24666 MA OFFICE/OUTPATIENT ESTABLISHED MOD MDM 30 MIN Normal [facility] Ambulatory Visit Summaryon 1 Ambulatory Visit [...] 30 mg Tab) potassium chloride (Potassium Chloride (Qja-Uvpp-Pfz M20) 20 mEq oral tablet, extended release) [...] EST With: Haider Hickman MD Where: [address] [address]- Monday 10:30 AM EST With: Araceli BERMUDEZ MD Where: [facility] [address], [address] [place] [address]- 2024 8:00 AM EDT With: Where: [address] [address]- Monday 9:15 AM EDT With: Araceli BERMUDEZ MD Where: [facility] [address] [place] [address]- You Need to Schedule the Following Appointments Follow Up with Araceli BERMUDEZ MD, URL When: Where: [address] [address]- Medications What How Much When Why Instructions Unchanged sodium bicarbonate (sodium bicarbonate 650 mg Tab) 2 Tablets By Mouth 3 times a day Duration: 90 Days Pickup at [facility]/pharmacy #6434 Unchanged acarbose (acarbose 25 mg oral tablet) [...] years.) Se (more content not included)... Normal [facility] Urology Office/Clinic Noteon 07-17-2024 Urology [...] RPG, R ESWL 01/04/24. Renal US 01/24/24 [facility] - neg limited renal ultrasound. Renal US [...] with voice recognition artificial intelligence software, specifically [employer], [employer] and or [employer]. Substitutions may have occurred due to the [...] RPG, R ESWL 01/04/24. Renal US 01/24/24 [facility] - neg limited renal ultrasound. Renal US [...] MD, URL [address] [address]- Additional Instructions: 1 year w/ renal US Patient Education Dietary Guidelines to Help Prevent Kidney Stones I, Roya Álvarez, personally scribed for Dr. Bermudez on 07/17/2024 10:05:06 (more content not included)... Normal [facility] Comment on above: Result Comment: Elec tronically Signed By: Araceli BERMUDEZ MD\.br\Date and Time Signed: 07/17/24 10:09 EDT\.br\Electronically Co-Signed By: Roya Álvarez\.br\Date and Time Co-Signed: 07/17/24 10:05 EDT Office Visiton 06-26-2024 Follow-up visit [id number] Dong Whitmore 1950 M Date Provider Department Center 06/26/2024 Yung-MARY APARICIO CARD Jessie Hos Family History Problem Relation Age of Onset Coronary artery disease Other Diabetes Other Family Status - Relation Status Age at Other Level of Service:93447 MA OFFICE/OUTPATIENT ESTABLISHED MOD MDM 30 MIN Reason for Visit and Comments: Coronary Artery Disease [187] Hypertension [240953] Normal [facility] XR Foot - right 3 Viewson Imaging Result: [facility] Radiology Study observation (narrative) [facility] No Panel Informationon 06-12 Chelle Brandon [...] and draped in the usual sterile fashion. [facility] Family Medicine Office/Clini c Noteon 05-23-2024 [...] Oral, BID (more content not included)... Normal [facility] Comment on above: Result Comment: [...] Hickman MD This Is Your Medications List [facility] Prescription (Eric Prather, 5 years.) acarbose (acarbose [...] 30 mg Tab) potassium chloride (Potassium Chloride (Dku-Djxc-Qvq M20) 20 mEq oral tablet, extended release) [...] AM EDT With: Kajal Freeman DPM Where: [facility] Monday 9:15 AM EDT With: Araceli BERMUDEZ MD Where: [facility] [address], [address] [place] [address]- Monday 3:30 PM EST With: Haider Hickman MD Where: [address] [address]- Monday 10:30 AM EST With: Araceli BERMUDEZ MD Where: [facility] [address], [address] [place] [address]- 2024 8:00 AM EDT With: Where: [address] [address]- Medications What How Much When Why Instructions New clindamycin (clindamycin 300 mg oral cap) 1 Capsules By Mouth 2 times a day Cellulitis of leg BMI 40.0-44.9, adult Non-smoker Class 3 severe obesity due to excess calories with body mass index (BMI) of 40.0 to 44.9 in adult Duration: 10 Days Pickup at [facility]/pharmacy #2657 Unchanged acarbose (acarbose 25 mg oral tablet) [...] Unchanged nitroglyce (more content not included)... [facility] Office Visit (NPRC21 ) DONG WHITMORE ([id number]) 1950 M Date Time Provider Department 04/24/24 9:00 AM CHIQUI ROBLES NPRC21 During your visit today, we recorded the following information about you: Pulse Blood pressure Weight Height 61/minute 122/89 122.5 kg 1.702 m Parish Rios MD 04/24/2024 11:26 AM Signed THE [facility] [place] April 24, 2024 This is a face [...] Camacho Desimir, MD 04/24/2024 11:26 AM Signed [facility] STAFF PHYSICIAN NOTE OF PERSONAL [...] - psychotherapy was utilized during the visit. Mabz-ns-sbbs time: 46792 (16-37 mins) actual time spend in psychotherapy [...] which included preparing to see the patient, jreg-vy-kpnr patient care, completing clinical documentation, performing a medically appropriate examination, and counseling and educating the patient/family/caregi naren. As noted, the patient's clinical situation is complex and serious with significant comorbidity of pain and functional limitations. This requires higher levels of time, intensity, and expense with longitudinal care and support. STAFF PHYSICIAN:: Chiqui Robles MD DATE of SERVICE: 04/24/2024 Referring Provider: HERBERTH ARAUJO [[id number]] Allergies As of Date: 04/24/2024 Noted Allergy [...] TO [facility] (CHRONIC PAIN) [4195928] Order #: [id number]: 1 PAIN RECOVERY FOLLOW UP ORDER [3979960] Order #: [id number]: 1 FUTURE PROVIDER ORDERED FOLLOW UP [6082585] Order #: [id number]: 1 FUTURE memantine (NAMENDA) 5 mg tabletTake 1 tablet by mouth once daily.Disp: 30 tabletRfl: 3 CONSULT TO KETAMINE FOR CHRONIC PAIN [9044] Order #: [id number]: 1 FUTURE Prescriptions as of 04/24/2024 - memantine (NAMENDA) 5 mg tablet Take 1 tablet by mouth once daily. - aspirin, enteric coated (ASPIRIN, ENTERIC COATED) 81 mg EC tablet Take 81 mg by mouth once daily. - fi (more content not included)... Normal [facility] BRIEF OP NOTon 04-03-2024 BRIEF OP NOT HNO ID: [id number] Author: CAPRICE DOWNING MD Service: Pain Management Author Type: Fellow Type: Brief Op Note Filed: 04/03/2024 10:35 Note Text: BRIEF OPERATIVE / PROCEDURE NOTE LOG ID: [id number] SURGERY/PROCEDURE DATE: 04/03/2024 PROCEDURE START TIME: 09 PROCEDURE END TIME: 1030 PRE-OP/PRE-PROCEDURE DIAGNOSIS: Chronic toe pain, right foot [M79.674, G89.29] Complex regional pain syndrome type II of right lower limb [G57.71] POST-OP/POST-PROCEDUR E DIAGNOSIS: Chronic toe pain, right foot [M79.674, G89.29] Complex regional pain syndrome type II of right lower limb [G57.71] SURGEON(S)/PROCEDURAL IST(S) AND PRINTED PRODUCTS ASSEMBLER(S): Surgeon(s) and Role: * Herberth Araujo MD, PhD - Primary * Caprice Downing MD No Additional Staff SURGERY/PROCEDURE(S): Attempted Right L4 and L5 Dorsal Root Ganglion Stimulator ANESTHESIA: Anxiolysis and Local anesthetic FINDINGS: None ESTIMATED BLOOD LOSS: Minimal SPECIMENS: None COMPLICATIONS: None Caprice Downing MD Pain Medicine Fellow April 03, 2024 Normal [facility] NURSING PROGon 04-03-2024 NURSING PROG HNO ID: [id number] Author: CAYETANO ROSALES RN Service: Nursing Author Type: Registered Nurse Type: Nursing Progress Note Filed: 04/08/2024 15:32 Note Text: Summary: Follow up phone call Follow up phone call made regarding outcome of procedure. No answer voicemail left - The patient was instructed to call [phone] with the percentage of pain relief and what activities have improved. [employer] message also sent. [facility] NURSING PROG HNO ID: [id number] Author: SURINDER LARES RN Service: Nursing Author Type: Registered Nurse Type: Nursing Progress Note Filed: 04/09/2024 10:09 Note Text: Summary: Post Procedure Call Patient left voice mail. Team was unable to finish procedure due to patient was unable to stay still. No pain relief noted. Surinder Lares RN April 09, 2024 [facility] NURSING PROG HNO ID: [id number] Author: EMILEE HYDE RN Service: ? Author Type: Registered Nurse Type: Nursing Progress Note Filed: 04/03/2024 10:45 Note Text: Dr. Marian Downing (fellow) discusses reason why procedure was aborted today. Other options for pain management was discussed with patient and . [facility] OPERATIVE NOon 04-03-2024 OPERATIVE NO HNO ID: [id number] Author: HERBERTH ARAUJO MD, PhD Service: Pain Management Author Type: Physician Type: Operative Report Filed: 04/03/2024 20:14 Note Text: OPERATIVE/PROCEDURE REPORT : LOG ID: [id number] SURGERY/PROCEDURE DATE: 04/03/2024 INCISION/PROCEDURE START TIME: 9:59 [...] Dorsal Root Ganglion Stimulator SURGEON(S)/PROCEDURAL IST(S) AND PRINTED PRODUCTS ASSEMBLER(S): Surgeon(s) and Role: * Herberth Araujo MD, [...] Herberth Araujo MD, PhD Normal [facility] HISTORY PHYSICALon HISTORY PHYSICAL HNO ID: [id number] Author: HERBERTH ARAUJO MD, PhD Service: Pain Management Author Type: Physician Type: H&P Filed: 04/03/2024 09:33 Note Text: PROCEDURE EVALUATION AND HISTORY AND PHYSICAL EXAM SUBJECTIVE: Dong Whitmore is a 73 year old man who presents to [facility] for Right L4 and L5 Dorsal Root Ganglion Stimulator Trial. This is his first (1) procedure. Focused Review of Systems: PAIN: Denies any contraindications to the procedure including coagulopathy, infection, recent cerebral/myocardial infarct, and hemodynamic instability. 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 Current Outpatient Medications [...] Herberth Araujo MD, PhD Normal [facility] NURSING PROGon 04-01-2024 NURSING PROG HNO ID: [id number] Author: HELENA BAUTISTA RN Service: ? Author [...] 2 hours before the appointment. 2. A escort car driver must be present who can drive you home. If you are coming by medical transport, you must have a responsible person other than the critical care transport nurse with you. 3. Do [...] or cannot make the appointment by calling [phone] (Option 2). [facility] Tele[facility] (PAINMN) DONG WHITMORE ([id number]) 1950 M Date Time Provider Department 03/19/24 HERBERTH ARAUJOMN During your visit today, we recorded the following information about you: Emilee So, RN 03/19/2024 1:32 PM Signed Spoke with patient at request of take away man as patient has questions about referral to infectious disease. Patient states that he spoke with his PCP, Dr. Hickman ([phone]) who spoke with Dr. Vega in Infectious disease at [facility]. Dr. Hickman ordered lab work at [...] EMILEE SO on 03/21/24 Normal [facility] BMPon 03-08-2024 Anion gap [Moles/Vol] 14 mmol/L Normal 6-16 [facility] Comment on above: Performed By: #### 2 [id number] #### [facility] [address] [place] [address] Calcium [Mass/Vol] 9.4 mg/dL Normal 8.9-11.1 [facility] Comment on above: Performed By: #### 2 [id number] #### [facility] [address] [place] [address] Chloride [Moles/Vol] 104 mmol/L Normal 101-111 [facility] Comment on above: Performed By: #### 2 899145 #### [facility] [address] [place] [address] CO2 [Moles/Vol] 24 mmol/L Normal 21-31 [facility] Comment on above: Performed By: #### 2 854514 #### [facility] [address] [place] [address] Creatinine [Mass/Vol] 1.5 mg/dL High 0.5-1.3 [facility] Comment on above: Performed By: #### 2 [id number] #### [facility] [address] [place] [address] Glucose [Mass/Vol] 109 mg/dL Normal 55-199 [facility] Comment on above: Performed By: #### 2 720258 #### [facility] [address] [place] [address] Potassium [Moles/Vol] 4.2 mmol/L Normal 3.5-5.3 [facility] Comment on above: Performed By: #### 2 [id number] #### [facility] [address] [place] [address] Sodium [Moles/Vol] 138 mmol/L Normal 135-145 [facility] Comment on above: Performed By: #### 2 361201 #### [facility] [address] [place] [id number] Urea nitrogen [Mass/Vol] 26 mg/dL High 5-21 [facility] Comment on above: Performed By: #### 2 903454 #### [facility] [address] [place], [place] [id number] Urea nitrogen/Creatinine [Mass ratio] 17 No Units Normal 10-20 [facility] Comment on above: Performed By: #### 2 [id number] #### [facility] [address] [place] [address] CycK0xqj 03-08-2024 HbA1c (Bld) [Mass fraction] 6.5 % High <=5.9 [facility] Comment on above: Performed By: #### 7 [id number] #### [facility] [address] [place] [address] eGFRon 03-08-2024 eGFR 48 mL/min/1.73 m2 Low >=59 [facility] Comment on above: Order Comment: Order added by Discern Expert. Performed By: #### 1 [id number] #### [facility] [address] [place] [address] CNOVon 02-29-2024 CNOV Office Visit (PAINMN ) DONG WHITMORE ([id number]) 1950 M Date Time Provider Department 02/29/24 1:30 PM HERBERTH ARAUJO PAINMN During your visit today, we recorded the following information about you: Temperature Pulse Blood pressure Weight 97.4 degrees 62/minute 138/73 122.5 kg Height 1.702 m Herberth Araujo MD, PhD 03/18/2024 7:05 PM Signed [facility] New Patient Consultation Referring Physician: SELF Chief Complaint: Right third toe pain SUBJECTIVE: Dong Whitmore is a 73 year old male with a pertinent past medical history of diabetes who presents to [facility] for the evaluation of right third toe pain. 15-year history of right third toe pain. He notes that over this time the pain has become increasingly severe has caused him significant discomfort and suffering. He has been to many specialists in the [facility]-over the course of the past [...] 16th pe (more content not included)... Normal [facility] CNPNon 02-06-2024 CNPN Telephone (PAMAVN) DONG WHITMORE ([id number]) 1950 M Date Time Provider Department 02/06/24 FRANCOISE SINGLETARY During your visit today, we recorded the following information about you: Lela Hyatt RN 02/06/2024 10:46 AM Signed ----- Message from Francoise Singletary MD sent at 02/05/2024 3:12 PM EDT ----- Do you mind calling him and giving him the number to schedule at [facility] to discuss DRG? I'd suggest seeking an appointment with the following doctors who perform DRG implantation: Dr. Carlisle, Dr. Araujo, Dr. Dan, Dr. Moo Heard and Dr. Kamara may do DRG - I'm not sure. Thanks Lela! ----- Message ----- From: Livia Lester PA-C Sent: 02/05/2024 2:07 PM EDT To: Francoise Singletary MD No one on this side of [facility] that I know of does DRG so, we also send to [facility] I would just have Lela call [...] GI Upset Date Reviewed: 02/05/2024 Reviewed by: Frnacoise Singletary MD - Fully Assessed Prescriptions as [...] Status:Closed by LELA HYATT on 02/06/24 Normal [facility] Ksenia 02-05-2024 CNJACKELIN Office Visit (DENICE ) ALDO WHITMOREHEN ([id number]) 1950 M Date Time Provider Department 02/05/24 11:30 AM FRANCOISE SINGLETARY During your visit today, we recorded the following information about you: Pulse Blood pressure Weight 80/minute 131/70 124.7 kg Francoise Singletary MD 02/05/2024 3:14 PM Signed [facility] Consultation Date: February 02, [...] year old (more content not included)... Normal [facility] A1C with Estimated Average G piercen 09-11-2023 HbA1c (Bld) [Mass fraction] 6.900 % High 4.3-5.6 % [employer] Other HbA1c (Bld) [Mass fraction] 151 mg/dL [employer] Other Glucose - FINGER STICKon Glucose [Mass/Vol] 138 mg/dL [employer] Other Glucose mean value [Mass/vol ume] in Blood Estimated from glycated hemoglobinOrdered By: Aldo Middleton on 09-11-2023 Average glucose Estimated from glycated hemoglobin (Bld) [Mass/Vol] 151 mg/dL [facility] Hemoglobin A1c percentageOrd ered By: Aldo Middleton on 09-11-2023 HbA1c (Bld) [Mass fraction] 6.9 % 4.3-5.6 [facility] Comment on above: Increased risk for d iabetes: 5.7 - 6.4diabetes: >6.4glycemic control for adults with diabetes: <7.0 A1C HEMOGLOBINon 02-14-2023 HbA1c (Bld) [Mass fraction] 7.6 % [employer] Other Glucose - FINGER STICKon Glucose [Mass/Vol] 215 mg/dL [employer] Other HbA1c (Bld) [Mass fraction]o n 02-14-2023 A1C HEMOGLOBIN [employer] Other ECHOCARDIO M/2D COMPLETEon 0 12-30-2022 ECHOCARDIO M/2D COMPLETE Patient: DONG WHITMORE Exam Date: 12/30/2022 : 1950 Gender:M Ordering : [facility] AP[facility]ICIO [employer] Admission #: [id number] Family : Order #: [id number] CLICK HERE TO VIEW EXAM ECHOCARDIOGRAM REPORT [...] : 1950 Gender:M Ordering : [facility] APARIC[facility] [employer] Admission #: [id number] Family : Order #: [id number] CLICK HERE TO VIEW EXAM RADIOLOGY REPORT [...] 2022-12-08 16:15 Normal [facility] TSHon 11-25-2022 TSH 2.370 uIU/mL Normal 0.358-3.740 [facility] Comment on above: Performed By: #### T #### [facility] [address] [address] [address] Eli Jarvis BNPon 11-08-2022 Natriuretic peptide B (Bld) [Mass/Vol] 122.0 pg/mL Normal <=900.0 [facility] Comment on above: Performed By: #### C MP, BNP #### [facility] [address] [address] [address] Eli Jarvis CBC AUTO DIFFon 11-08-2022 BASO # 0.1 103/ul Normal 0.0-0.1 [facility] Comment on above: Performed By: #### C BC ####[facility] [address] [place] [address]DrSuzie Jarvis Basophils/100 WBC (Bld) 0.7 % Normal 0.2-2.0 [facility] Comment on above: Performed By: #### C BC ####[facility] [address] [place], [place] [address]Dr. Eli Jarvis EO # 0.2 103/ul Normal 0.0-0.7 [facility] Comment on above: Performed By: #### C BC ####[facility] [address] [place] [address]Dr. Eli Jarvis Eosinophils/100 WBC (Bld) 3.5 % Normal 0.9-7.0 [facility] Comment on above: Performed By: #### C BC ####[facility] [address] [place] [address]DrSuzie Jarvis Erythrocyte distribution width (RBC) [Ratio] 13.8 % Normal 11.0-15.0 [facility] Comment on above: Performed By: #### C BC ####[facility] [address] [place] [address]DrSuzie Jarvis Hematocrit (Bld) [Volume fraction] 42.0 % Normal 42.0-54.0 [facility] Comment on above: Performed By: #### C BC ####[facility] [address] [place], [place] [address]DrSuzie Jarvis Hemoglobin (Bld) [Mass/Vol] 13.8 g/dL Critically low 14.0-18.0 [facility] Comment on above: Performed By: #### C BC ####[facility] [address] [place] [address]Dr. Eli Jarvis IG # 0.03 10e3/ul Normal 0.00-0.03 [facility] Comment on above: Performed By: #### C BC ####[facility] [address] [place] [address]Dr. Eli Jarvis IG % 0.4 % Normal 0.0-0.5 [facility] Comment on above: Performed By: #### C BC ####[facility] [address] [place] [address]Dr. Eli Jarvis LYMPH # 1.3 103/ul Normal 1.2-3.8 [facility] Comment on above: Performed By: #### C BC ####[facility] [address] [place] [address]Dr. Eli Jarvis Lymphocytes/100 WBC (Bld) 18.8 % Critically low 20.5-60.0 [facility] Comment on above: Performed By: #### C BC ####[facility] [address] [place] [address]Dr. Eli Jarvis MANUAL DIFF REQ NO Normal [facility] Comment on above: Performed By: #### C BC ####[facility] [address] [place] [address]Dr. Eli Jarvis MCH (RBC) [Entitic mass] 27.8 pg Normal 25.9-34.0 [facility] Comment on above: Performed By: #### C BC ####[facility] [address] [place] [address]Dr. Eli Jarvis MCHC (RBC) [Mass/Vol] 32.9 g/dL Normal 29.9-35.2 [facility] Comment on above: Performed By: #### C BC ####[facility] [address] [place] [address]Dr. Eli Jarvis MCV (RBC) [Entitic vol] 84.7 fL Normal 80.0-94.0 [facility] Comment on above: Performed By: #### C BC ####[facility] [address] [place] [address]Dr. Eli Jarvis MONO # 0.6 103/ul Normal 0.3-0.8 [facility] Comment on above: Performed By: #### C BC ####[facility] [address] [place] [address]Dr. Eli Jarvis Monocytes/100 WBC (Bld) 8.5 % Normal 1.7-12.0 [facility] Comment on above: Performed By: #### C BC ####[facility] [address] [id number]. Eli Jarvis NEUT # 4.7 103/ul Normal 1.4-6.5 [facility] Comment on above: Performed By: #### C BC ####[facility] [address] [place], [place] [address]Dr. Eli Jarvis Neutrophils/100 WBC (Bld) 68.1 % Normal 43.0-75.0 [facility] Comment on above: Performed By: #### C BC ####[facility] [address] [place], [place] [address]Dr. Eli Jarvis Platelet mean volume (Bld) [Entitic vol] 10.3 fL Normal 9.5-13.5 [facility] Comment on above: Performed By: #### C BC ####[facility] [address] [place], [place] [address]Dr. Eli Jarvis PLT 189 103/ul Normal 150-450 [facility] Comment on above: Performed By: #### C BC ####[facility] [address] [place], [place] [id number]. Eli Jarvis RBC 4.96 106/ul Normal 4.70-6.10 [facility] Comment on above: Performed By: #### C BC ####[facility] [address] [id number]. Eli Jarvis WBC 7.0 103/ul Normal 4.0-11.0 [facility] Comment on above: Performed By: #### C BC ####[facility] [address] [place], [place] [address]OjDr. Eli Jarvis PROF 14(COMP METB)on 023 Albumin [Mass/Vol] 3.6 g/dL Normal 3.4-5.0 [facility] Comment on above: Performed By: #### C MP, BNP #### [facility] [address] [address] [address] Eli Jarvis Albumin/Globulin [Mass ratio] 1.1 {ratio} Normal [facility] Comment on above: Performed By: #### C MP, BNP #### [facility] [address] [address] [address] Eli Jarvis ALP [Catalytic activity/Vol] 90 U/L Normal 46-116 [facility] Comment on above: Performed By: #### C MP, BNP #### [facility] [address] [address] [address] Eli Jarvis ALT [Catalytic activity/Vol] 42 U/L Normal 16-63 [facility] Comment on above: Performed By: #### C MP, BNP #### [facility] [address] [address] [address] Eli Jarvis Anion gap [Moles/Vol] 13.5 mmol/L Normal [facility] Comment on above: Performed By: #### C MP, BNP #### [facility] [address] [address] [address] Eli Jarvis AST [Catalytic activity/Vol] 26 U/L Normal 15-37 [facility] Comment on above: Performed By: #### C MP, BNP #### [facility] [address] [address] [address] Eli Jarvis Bilirubin [Mass/Vol] 0.4 mg/dL Normal 0.2-1.0 [facility] Comment on above: Performed By: #### C MP, BNP #### [facility] [address] [address] [address] Eli Jarvis Calcium [Mass/Vol] 9.3 mg/dL Normal 8.5-10.1 [facility] Comment on above: Performed By: #### C MP, BNP #### [facility] [address] [address] [address] Eli Jarvis Chloride [Moles/Vol] 104 mmol/L Normal 98-107 [facility] Comment on above: Performed By: #### C MP, BNP #### [facility] [address] [address] [address] Eli Jarvis CO2 [Moles/Vol] 25.7 mmol/L Normal 21.0-32.0 [facility] Comment on above: Performed By: #### C MP, BNP #### [facility] [address] [address] [address] Eli Jarvis Creatinine [Mass/Vol] 1.32 mg/dL Critically high 0.70-1.30 [facility] Comment on above: Performed By: #### C MP, BNP #### [facility] [address] [address] [address] Eli Jarvis EGFR-AF [place] >60 Normal >=60 [facility] Comment on above: Performed By: #### C MP, BNP #### [facility] [address] [address] [address] Eli Jarvis EGFR-NON AF [place] 53 mL/min/1.73m2 Critically low >=60 [facility] Comment on above: Performed By: #### C MP, BNP #### [facility] [address] [address] [address] Eli Jarvis Globulin (S) [Mass/Vol] 3.3 g/dL Normal [facility] Comment on above: Performed By: #### C MP, BNP #### [facility] [address] [address] [address] Eli Jarvis Glucose [Mass/Vol] 154 mg/dL Critically high 74-106 [facility] Comment on above: Performed By: #### C MP, BNP #### [facility] [address] [address] [address] Eli Jarvis Potassium [Moles/Vol] 4.2 mmol/L Normal 3.5-5.1 [facility] Comment on above: Performed By: #### C MP, BNP #### [facility] [address] [address] [address] Eli Jarvis Protein [Mass/Vol] 6.9 g/dL Normal 6.4-8.2 [facility] Comment on above: Performed By: #### C MP, BNP #### [facility] [address] [address] [address] Eli Jarvis Sodium [Moles/Vol] 139 mmol/L Normal 136-145 [facility] Comment on above: Performed By: #### C MP, BNP #### [facility] [address] [address] [address] Eli Jarvis Urea nitrogen [Mass/Vol] 23.0 mg/dL Critically high 7.0-18.0 [facility] Comment on above: Performed By: #### C MP, BNP #### [facility] [address] [address] [address] Eli Jarvis Urea nitrogen/Creatinine [Mass ratio] 17.4 mg/mg Normal [facility] Comment on above: Performed By: #### C MP, BNP #### [facility] [address] [address] [address] Eli Jarvis A1C HEMOGLOBINon 11-07-2022 HbA1c (Bld) [Mass fraction] 7.6 % [facility] [employer] Other Glucose - FINGER STICKon Glucose [Mass/Vol] 172 mg/dL [employer] Other HbA1c (Bld) [Mass fraction]o n 11-07-2022 A1C HEMOGLOBIN [facility] Other US KIDNEYSon 2022 US KIDNEYS EXAMINATION: [...] 07-27-2022 HbA1c (Bld) [Mass fraction] 7.2 % [employer] Other Glucose - FINGER STICKon Glucose [Mass/Vol] 160 mg/dL [employer] Other HbA1c (Bld) [Mass fraction]o n 07-27-2022 A1C HEMOGLOBIN [employer] Other A1C HEMOGLOBINon 04-21-2022 HbA1c (Bld) [Mass fraction] 7.6 % [employer] Other Glucose - FINGER STICKon Glucose [Mass/Vol] 184 mg/dL [employer] Other HbA1c (Bld) [Mass fraction]o n 04-21-2022 A1C HEMOGLOBIN [employer] Other [employer] Creat Ratio,Uon Albumin DL <= 20 mg/L (U) [Mass/Vol] 10.3664916 mg/dL High 0.0-1.8 mg/dL [employer] Other Albumin/Creatinine DL <= 20 mg/L (U) [Mass ratio] 70.054795 mg/g High 0.0-30.0 mg/g [employer] Other Creatinine (U) [Mass/Vol] 549.1928948 mg/dL [employer] Other CBC AUTO DIFFon 04-07-2022 BASO # 0.0 103/ul Normal 0.0-0.1 [facility] Comment on above: Performed By: #### C BC #### [facility] [address] [place] [address] Dr. Eli Jarvis Basophils/100 WBC (Bld) 0.6 % Normal 0.2-2.0 [facility] Comment on above: Performed By: #### C BC #### [facility] [address] [place] [address] Dr. Eli Jarvis EO # 0.2 103/ul Normal 0.0-0.7 [facility] Comment on above: Performed By: #### C BC #### [facility] [address] [place] [address] Dr. Eli Jarvis Eosinophils/100 WBC (Bld) 2.9 % Normal 0.9-7.0 [facility] Comment on above: Performed By: #### C BC #### [facility] [address] [place] [address] Dr. Eli Jarvis Erythrocyte distribution width (RBC) [Ratio] 13.8 % Normal 11.0-15.0 [facility] Comment on above: Performed By: #### C BC #### [facility] [address] [place] [address] Dr. Eli Jarvis Hematocrit (Bld) [Volume fraction] 40.7 % Critically low 42.0-54.0 [facility] Comment on above: Performed By: #### C BC #### [facility] [address] [place] [address] Dr. Eli Jarvis Hemoglobin (Bld) [Mass/Vol] 13.3 g/dL Critically low 14.0-18.0 [facility] Comment on above: Performed By: #### C BC #### [facility] [address] [place] [address] Dr. Eli Jarvis IG # 0.04 10e3/ul Critically high 0.00-0.03 [facility] Comment on above: Performed By: #### C BC #### [facility] [address] [place] [address] Dr. Eli Jarvis IG % 0.6 % Critically high 0.0-0.[address] [facility] Comment on above: Performed By: #### C BC #### [facility] [address] [place] [address] Dr. Eli Jarvis LYMPH # 1.3 103/ul Normal 1.2-3.8 [facility] Comment on above: Performed By: #### C BC #### [facility] [address] [place] [address] Dr. Eli Jarvis Lymphocytes/100 WBC (Bld) 18.7 % Critically low 20.5-60.0 [facility] Comment on above: Performed By: #### C BC #### [facility] [address] [place] [address] Dr. lEi Jarvis MANUAL DIFF REQ NO Normal [facility] Comment on above: Performed By: #### C BC #### [facility] [address] [place] [address] Dr. Eli Jarvis MCH (RBC) [Entitic mass] 28.1 pg Normal 25.9-34.0 [facility] Comment on above: Performed By: #### C BC #### [facility] [address] [place] [address] Dr. Eli Jarvis MCHC (RBC) [Mass/Vol] 32.7 g/dL Normal 29.9-35.2 [facility] Comment on above: Performed By: #### C BC #### [facility] [address] [place] [address] Dr. Eli Jarvis MCV (RBC) [Entitic vol] 86.0 fL Normal 80.0-94.0 [facility] Comment on above: Performed By: #### C BC #### [facility] [address] [place] [address] Dr. Eli Jarvis MONO # 0.4 103/ul Normal 0.3-0.8 [facility] Comment on above: Performed By: #### C BC #### [facility] [address] [place] [address] Dr. Eli Jarvis Monocytes/100 WBC (Bld) 6.2 % Normal 1.7-12.0 [facility] Comment on above: Performed By: #### C BC #### [facility] [address] [address] [address] Eli Jarvis NEUT # 4.9 103/ul Normal 1.4-6.5 [facility] Comment on above: Performed By: #### C BC #### [facility] [address] [address] [address] Eli Jarvis Neutrophils/100 WBC (Bld) 71.0 % Normal 43.0-75.0 [facility] Comment on above: Performed By: #### C BC #### [facility] [address] [address] [address] Eli Jarvis Platelet mean volume (Bld) [Entitic vol] 9.9 fL Normal 9.5-13.5 [facility] Comment on above: Performed By: #### C BC #### [facility] [address] [address] [address] Eli Jarvis PLT 184 103/ul Normal 150-450 [facility] Comment on above: Performed By: #### C BC #### [facility] [address] [address] [address] Eli Jarvis RBC 4.73 106/ul Normal 4.70-6.10 [facility] Comment on above: Performed By: #### C BC #### [facility] [address] [address] [address] Eli Jarvis WBC 6.9 103/ul Normal 4.0-11.0 [facility] Comment on above: Performed By: #### C BC #### [facility] [address] [address] [address] Eli Jarvis LIPID PROFILEon 04-07-2022 CHOL-HDL RATIO NORM SEE BELOW Normal [facility] Comment on above: Result Comment: 3.3 - 4.4 LOW RISK 4.4 - 7.1 AVERAGE RISK 7.1 - 11.0 MODERATE RISK >11.0 HIGH RISK Performed By: #### C MP, LIPID ####[facility] [address] [address]Dr. Eli Jarvis Cholesterol [Mass/Vol] 127 mg/dL Normal <=200 [facility] Comment on above: Performed By: #### C MP, LIPID ####[facility] [address] [id number]. Eli Jarvis Cholesterol in HDL [Mass/Vol] 36 mg/dL Critically low 40-60 [facility] Comment on above: Performed By: #### C MP, LIPID ####[facility] [address] [id number]. Eli Jarvis Cholesterol in LDL [Mass/Vol] 58.4 mg/dL Normal [facility] Comment on above: Performed By: #### C MP, LIPID ####[facility] [address] [address]Dr. Eli Jarvis Cholesterol.total/Cho lesterol in HDL [Mass ratio] 3.5 {ratio} Normal [facility] Comment on above: Performed By: #### C MP, LIPID ####[facility] [address] [address]Dr. Eli Jarvis HDL NORMAL > or = 60 mg/dl - LO W CARDIOVASCULAR RISK <40 mg/dl - HIGH CARDIOVASCULAR RISK Normal [facility] Comment on above: Performed By: #### C MP, LIPID ####[facility] [address] [place] [id number]. Eli Jarvis LDL CALC NORMAL SEE BELOW Normal [facility] Comment on above: Result Comment: <100 mg/dl OPTIMAL 100 - 129 mg/dl NEAR OR ABOVE OPTIMAL 130 - 159 mg/dl BORDERLINE HIGH 160 - 189 mg/dl HIGH >190 mg/dl VERY HIGH Performed By: #### C MP, LIPID ####[facility] [address] [id number]. Eli Jarvis Triglyceride [Mass/Vol] 163 mg/dL Critically high <=150 [facility] Comment on above: Performed By: #### C MP, LIPID ####[facility] [address] [id number]. Eli Jarvis VLDL CALC 32.6 mg/dL Normal [facility] Comment on above: Performed By: #### C MP, LIPID ####[facility] [address] [id number]. Eli Jarvis PROF 14(COMP METB)on 022 Albumin [Mass/Vol] 3.8 g/dL Normal 3.4-5.0 [facility] Comment on above: Performed By: #### C MP, LIPID ####[facility] [address] [address]Dr. Eli Jarvis Albumin/Globulin [Mass ratio] 1.1 {ratio} Normal [facility] Comment on above: Performed By: #### C MP, LIPID ####[facility] [address] [place] [address]Dr. Eli Jarvis ALP [Catalytic activity/Vol] 89 U/L Normal 46-116 [facility] Comment on above: Performed By: #### C MP, LIPID ####[facility] [address] [address]Dr. Eli Jarvis ALT [Catalytic activity/Vol] 43 U/L Normal 16-63 [facility] Comment on above: Performed By: #### C MP, LIPID ####[facility] [address] [place] [address]Dr. Eli Jarvis Anion gap [Moles/Vol] 10.7 mmol/L Normal [facility] Comment on above: Performed By: #### C MP, LIPID ####[facility] [address] [address]Dr. Eli Jarvis AST [Catalytic activity/Vol] 24 U/L Normal 15-37 [facility] Comment on above: Performed By: #### C MP, LIPID ####[facility] [address] [address]Dr. Eli Jarvis Bilirubin [Mass/Vol] 0.2 mg/dL Normal 0.2-1.0 [facility] Comment on above: Performed By: #### C MP, LIPID ####[facility] [address] [place] [address]Dr. Eli Jarvis Calcium [Mass/Vol] 9.1 mg/dL Normal 8.5-10.1 [facility] Comment on above: Performed By: #### C MP, LIPID ####[facility] [address] [address]Dr. Eli Jarvis Chloride [Moles/Vol] 104 mmol/L Normal 98-107 [facility] Comment on above: Performed By: #### C MP, LIPID ####[facility] [address] [address]Dr. Eli Jarvis CO2 [Moles/Vol] 27.5 mmol/L Normal 21.0-32.0 [facility] Comment on above: Performed By: #### C MP, LIPID ####[facility] [address] [place], [place] [address]Dr. Eli Jarvis Creatinine [Mass/Vol] 1.15 mg/dL Normal 0.70-1.30 [facility] Comment on above: Performed By: #### C MP, LIPID ####[facility] [address] [place], [place] [address]Dr. Eli Jarvis EGFR-AF [place] >60 Normal >=60 [facility] Comment on above: Performed By: #### C MP, LIPID ####[facility] [address] [place], [place] [address]Dr. Eli Jarvis EGFR-NON AF [place] >60 Normal >=60 [facility] Comment on above: Performed By: #### C MP, LIPID ####[facility] [address] [address]Dr. Eli Jarvis Globulin (S) [Mass/Vol] 3.4 g/dL Normal [facility] Comment on above: Performed By: #### C MP, LIPID ####[facility] [address] [address]Dr. Eli Jarvis Glucose [Mass/Vol] 157 mg/dL Critically high 74-106 [facility] Comment on above: Performed By: #### C MP, LIPID ####[facility] [address] [place] [address]Dr. Eli Jarvis Potassium [Moles/Vol] 4.2 mmol/L Normal 3.5-5.1 [facility] Comment on above: Performed By: #### C MP, LIPID ####[facility] [address] [place] [id number]. Eli Jarvis Protein [Mass/Vol] 7.2 g/dL Normal 6.4-8.2 [facility] Comment on above: Performed By: #### C MP, LIPID ####[facility] [address] [place] [id number]. Eli Jarvis Sodium [Moles/Vol] 138 mmol/L Normal 136-145 [facility] Comment on above: Performed By: #### C MP, LIPID ####[facility] [address] [place] [id number]. Eli Jarvis Urea nitrogen [Mass/Vol] 26.0 mg/dL Critically high 7.0-18.0 [facility] Comment on above: Performed By: #### C MP, LIPID ####[facility] [address] [place] [id number]. Eli Jarvis Urea nitrogen/Creatinine [Mass ratio] 22.6 mg/mg Normal [facility] Comment on above: Performed By: #### C MP, LIPID ####[facility] [address] [place] [id number]. Eli Jarvis A1C HEMOGLOBINon 10-21-2021 HbA1c (Bld) [Mass fraction] 6.6 % [employer] Other Glucose - [employer] Glucose [Mass/Vol] 169 mg/dL [employer] Other HbA1c (Bld) [Mass fraction]o n 10-21-2021 A1C HEMOGLOBIN [employer] Other Comprehensive Metabolic Pane deann 07-29-2021 Albumin [Mass/Vol] 3.9 g/dL 3.2-5.5 [employer] Other Albumin/Globulin [Mass ratio] 1.6 {ratio} [employer] Other ALP [Catalytic activity/Vol] 63 U/L 32-92 [facility] [employer] Other ALT [Catalytic activity/Vol] 32 U/L 10-60 [facility] [employer] Other AST [Catalytic activity/Vol] 32 U/L 10-42 [facility] [employer] Other Bilirubin [Mass/Vol] 0.5 mg/dL 0.3-1.2 [facility] [employer] Other Calcium [Mass/Vol] 9.7 mg/dL 8.2-10.2 [facility] [employer] Other Chloride [Moles/Vol] 105 mmol/L 95-114 [facility] [employer] Other CO2 [Moles/Vol] 22.7 mmol/L 22.0-30.0 [facility] [employer] Other Creatinine [Mass/Vol] 1.28 mg/dL 0.64-1.27 [facility] [employer] Other Glucose [Mass/Vol] 111 mg/dL 70-100 [facility] [employer] Other Potassium [Moles/Vol] 4.1 mmol/L 3.5-5.1 [facility] [employer] Other Protein [Mass/Vol] 6.3 g/dL 6.1-7.9 [facility] [employer] Other Sodium [Moles/Vol] 139 mmol/L 136-146 [facility] [employer] Other Urea nitrogen [Mass/Vol] 23 mg/dL 9-23 [facility] [employer] Other Comprehensive Metabolic Panel 55 [facility] [employer] Other Comprehensive Metabolic Panel > 60 [facility] [employer] Other Comprehensive Metabolic Panel 2.4 [facility] [employer] Other Hepatitis Acute Panelon 10-2 Hepatitis Acute Panel Negative Negative [facility] [employer] Other Hepatitis Acute Panel <0.1 0.0-0.9 [facility] [employer] Other Vital Signs Date Time Vital Sign Value Performing Clinician Facility 05-22-2025 08:59-0400 Body height 165.1 cm Bassam Aguilar DPM Work Phone: [facility] 05-22-2025 08:59-0400 Body mass index (BMI) [Ratio] 45.93 kg/m2 Bassam Aguilar DPM Work Phone: [facility] 05-22-2025 08:59-0400 Body weight 125.19 kg Bassam Aguilar DPM Work Phone: [facility] 05-22-2025 08:59-0400 Respiratory rate 16 /min Bassam Aguilar DPM Work Phone: [facility] 05-14-2025 10:55-0400 Body height 170.18 cm Kaia Torres PhD Work Phone: [facility] 05-14-2025 10:55-0400 Body mass index (BMI) [Ratio] 40.08 kg/m2 Kaia Torres PhD Work Phone: [facility] 05-14-2025 10:55-0400 Body surface area Derived from formula 2.34 m2 Kaia Torres PhD Work Phone: [facility] 05-14-2025 10:55-0400 Body weight 116.07 kg Kaia Torres PhD Work Phone: [facility] 04-30-2025 14:19-0400 Body height 165.1 cm David Wong MD Work Phone: [facility] 04-30-2025 14:19-0400 Body mass index (BMI) [Ratio] 45.93 kg/m2 David Wong MD Work Phone: [facility] 04-30-2025 14:19-0400 Body weight 125.19 kg David Wong MD Work Phone: [facility] 04-30-2025 14:19-0400 Diastolic blood pressure 77 mm[Hg] David Wong MD Work Phone: [facility] 04-30-2025 14:19-0400 Heart rate 76 /min David Wong MD Work Phone: [facility] 04-30-2025 14:19-0400 Systolic blood pressure 113 mm[Hg] David Wong MD Work Phone: [facility] 04-03-2025 13:03-0400 Body weight 116.2 kg Deo Hickman Work Phone: [facility] 03-31-2025 09:19-0400 Body height 165.1 cm David Wong MD Work Phone: [facility] 03-31-2025 09:19-0400 Body mass index (BMI) [Ratio] 45.93 kg/m2 David Wong MD Work Phone: [facility] 03-31-2025 09:19-0400 Body weight 125.19 kg David Wong MD Work Phone: [facility] 03-31-2025 09:19-0400 Diastolic blood pressure 63 mm[Hg] David Wong MD Work Phone: [facility] 03-31-2025 09:19-0400 Heart rate 78 /min David Wong MD Work Phone: [facility] 03-31-2025 09:19-0400 Systolic blood pressure 98 mm[Hg] David Wong MD Work Phone: [facility] 03-26-2025 13:09-0400 Body height 170.18 cm Deo Hickman Work Phone: [facility] 03-26-2025 13:09-0400 Body mass index (BMI) [Ratio] 40.4 kg/m2 Deo Hickman Work Phone: [facility] 03-26-2025 13:09-0400 Body weight 117 kg Deo Hickman Work Phone: [facility] 03-26-2025 13:09-0400 Diastolic blood pressure 56 mm[Hg] Deo Hickman Work Phone: [facility] 03-26-2025 13:09-0400 Heart rate 63 /min Deo Hickman Work Phone: [facility] 03-26-2025 13:09-0400 Respiratory rate 18 /min Deo Hickman Work Phone: [facility] 03-26-2025 13:09-0400 SaO2% (BldA) [Mass fraction] 98 % Deo Hickman Work Phone: [facility] 03-26-2025 13:09-0400 Systolic blood pressure 117 mm[Hg] Deo Hickman Work Phone: [facility] 03-19-2025 11:38-0400 Body height 170.18 cm Deo Hickman Work Phone: [facility] 03-19-2025 11:38-0400 Body mass index (BMI) [Ratio] 39.9 kg/m2 Deo Hickman Work Phone: [facility] 03-19-2025 11:38-0400 Body temperature 97.2 [degF] Deo Hickman Work Phone: [facility] 03-19-2025 11:38-0400 Body weight 115.66 kg Deo Hickman Work Phone: [facility] 03-19-2025 11:38-0400 Diastolic blood pressure 70 mm[Hg] Deo Hickman Work Phone: [facility] 03-19-2025 11:38-0400 Heart rate 96 /min Deo Hickman Work Phone: [facility] 03-19-2025 11:38-0400 SaO2% (BldA) [Mass fraction] 98 % Deo Hickman Work Phone: [facility] 03-19-2025 11:38-0400 Systolic blood pressure 150 mm[Hg] Deo Hcikman Work Phone: [facility] 03-13-2025 13:17-0400 Body height 170.18 cm [facility] 03-13-2025 13:17-0400 Body mass index (BMI) [Ratio] 39.1 kg/m2 [facility] 03-13-2025 13:17-0400 Body weight 113.3 kg [facility] 03-13-2025 13:17-0400 Diastolic blood pressure 93 mm[Hg] [facility] 03-13-2025 13:17-0400 Systolic blood pressure 147 mm[Hg] [facility] 03-06-2025 09:16-0400 Body height 165.1 cm Bassam Brown DPM Work Phone: [facility] 03-06-2025 09:16-0400 Body mass index (BMI) [Ratio] 45.93 kg/m2 Bassam Brown DPM Work Phone: [facility] 03-06-2025 09:16-0400 Body weight 125.19 kg Bassam Brown DPM Work Phone: [facility] 03-06-2025 09:16-0400 Respiratory rate 18 /min Bassam Brown DPM Work Phone: [facility] 10-17-2024 10:14-0500 Body height 165.1 cm Bassam Brown DPM Work Phone: [facility] 10-17-2024 10:14-0500 Body mass index (BMI) [Ratio] 45.93 kg/m2 Bassam Brown DPM Work Phone: [facility] 10-17-2024 10:14-0500 Body weight 125.19 kg Bassam Brown DPM Work Phone: [facility] 10-17-2024 10:14-0500 Respiratory rate 16 /min Bassam Aguilar DPM Work Phone: [facility] 08-29-2024 09:27-0500 Body mass index (BMI) [Ratio] 45.93 kg/m2 Christopher Lalo DO Work Phone: [facility] 08-29-2024 09:27-0500 Body weight 125.19 kg Christopher Lalo DO Work Phone: [facility] 08-29-2024 09:27-0500 Diastolic blood pressure 76 mm[Hg] Christopher Lalo DO Work Phone: [facility] 08-29-2024 09:27-0500 Heart rate 64 /min Christopher Lalo DO Work Phone: [facility] 08-29-2024 09:27-0500 SaO2% (BldA) [Mass fraction] 95 % Christopher Lalo DO Work Phone: [facility] 08-29-2024 09:27-0500 Systolic blood pressure 134 mm[Hg] Christopher Lalo DO Work Phone: [facility] 08-14-2024 09:59-0500 Body mass index (BMI) [Ratio] 40.46 kg/m2 Chiqui Robles MD Work Phone: [facility] 08-14-2024 09:59-0500 Body weight 117.2 kg Chiqui Robles MD Work Phone: [facility] 08-14-2024 09:59-0500 Diastolic blood pressure 69 mm[Hg] Chiqui Robles MD Work Phone: [facility] 08-14-2024 09:59-0500 Heart rate 59 /min Chiqui Robles MD Work Phone: [facility] 08-14-2024 09:59-0500 Respiratory rate 16 /min Chiqui Robles MD Work Phone: [facility] 08-14-2024 09:59-0500 SaO2% (BldA) [Mass fraction] 97 % Chiqui Robles MD Work Phone: [facility] 08-14-2024 09:59-0500 Systolic blood pressure 137 mm[Hg] Chiqui Robles MD Work Phone: [facility] 08-08-2024 09:32-0400 Body height 165.1 cm Bassam Aguilar DPM Work Phone: [facility] 08-08-2024 09:32-0400 Body mass index (BMI) [Ratio] 42.43 kg/m2 Bassam Aguilar DPM Work Phone: [facility] 08-08-2024 09:32-0400 Body weight 115.67 kg Bassam Aguilar DPM Work Phone: [facility] 08-08-2024 09:32-0400 Diastolic blood pressure 79 mm[Hg] Bassam Aguilar DPM Work Phone: [facility] 08-08-2024 09:32-0400 Heart rate 82 /min Bassam Aguilar DPM Work Phone: [facility] 08-08-2024 09:32-0400 Systolic blood pressure 128 mm[Hg] Bassam Aguilar DPM Work Phone: [facility] 08-06-2024 09:53-0400 Body height 165.1 cm Khai Heard DO Work Phone: [facility] 08-06-2024 09:53-0400 Body mass index (BMI) [Ratio] 42.43 kg/m2 Khai Heard DO Work Phone: [facility] 08-06-2024 09:53-0400 Body weight 115.67 kg Khai Heard DO Work Phone: [facility] 07-31-2024 10:20-0400 Body height 165.1 cm Shyam Freeman DPM [employer]AC[employer] Work Phone: [facility] 07-31-2024 10:20-0400 Body mass index (BMI) [Ratio] 42.43 kg/m2 Shyam Dolce DPM [employer] Work Phone: [facility] 07-31-2024 10:20-0400 Body weight 115.67 kg Shyam Dolce DPM [employer] Work Phone: [facility] 07-31-2024 10:20-0400 Diastolic blood pressure 79 mm[Hg] Shyam Dolce DPM FAC[employer] Work Phone: [facility] 07-31-2024 10:20-0400 Heart rate 68 /min Shyam Dolce DPM [employer] Work Phone: [facility] 07-31-2024 10:20-0400 Systolic blood pressure 128 mm[Hg] Shyam Dolce DPM [employer] Work Phone: [facility] 07-24-2024 10:12-0400 Body height 165.1 cm Shyam Dolce DPM [employer] Work Phone: [facility] 07-24-2024 10:12-0400 Body mass index (BMI) [Ratio] 42.43 kg/m2 Shyam Dolce DPM [employer] Work Phone: [facility] 07-24-2024 10:12-0400 Body weight 115.67 kg Shyam Dolce DPM [employer] Work Phone: [facility] 07-24-2024 10:12-0400 Diastolic blood pressure 78 mm[Hg] Shyam Dolce DPM [employer] Work Phone: [facility] 07-24-2024 10:12-0400 Heart rate 83 /min Shyam Dolce DPM [employer] Work Phone: [facility] 07-24-2024 10:12-0400 Systolic blood pressure 131 mm[Hg] Shyam Dolce DPM FAC[employer] Work Phone: [facility] 07-23-2024 09:37-0400 Body height 165.1 cm Arlen Sanchez [employer] Work Phone: [facility] 07-23-2024 09:37-0400 Body mass index (BMI) [Ratio] 42.43 kg/m2 Alren Sanchez DO Work Phone: [facility] 07-23-2024 09:37-0400 Body weight 115.67 kg Arlen Sanchez DO Work Phone: [facility] 07-03-2024 10:07-0400 Body height 165.1 cm Shyam Dolce DPM [employer] Work Phone: [facility] 07-03-2024 10:07-0400 Body mass index (BMI) [Ratio] 42.43 kg/m2 Shyam Dolce DPM [employer] Work Phone: [facility] 07-03-2024 10:07-0400 Body weight 115.67 kg Shyam Dolce DPM [employer] Work Phone: [facility] 07-03-2024 10:07-0400 Diastolic blood pressure 78 mm[Hg] Shyam Dolce DPM [employer] Work Phone: [facility] 07-03-2024 10:07-0400 Heart rate 85 /min Shyam Dolce DPM [employer] Work Phone: [facility] 07-03-2024 10:07-0400 Systolic blood pressure 132 mm[Hg] Shyam Dolce DPM [employer] Work Phone: [facility] 06-25-2024 14:46-0400 Body height 165.1 cm Kajal Dolce DPM [employer] Work Phone: [facility] 06-25-2024 14:46-0400 Body mass index (BMI) [Ratio] 42.43 kg/m2 Kajal Dolce DPM [employer] Work Phone: [facility] 06-25-2024 14:46-0400 Body weight 115.67 kg Kajal Dolce DPM [employer] Work Phone: [facility] 06-25-2024 14:46-0400 Diastolic blood pressure 75 mm[Hg] Kajal Dolce DPM [employer] Work Phone: [facility] 06-25-2024 14:46-0400 Heart rate 72 /min Kajal Dolce DPM [employer] Work Phone: [facility] 06-25-2024 14:46-0400 Systolic blood pressure 126 mm[Hg] Kajal Dolce DPM [employer] Work Phone: [facility] 06-19-2024 08:52-0400 Body height 165.1 cm Shyam Dolce DPM [employer] Work Phone: [facility] 06-19-2024 08:52-0400 Body mass index (BMI) [Ratio] 42.43 kg/m2 Shyam Dolce DPM [employer] Work Phone: [facility] 06-19-2024 08:52-0400 Body weight 115.67 kg Shyam Dolce DPM [employer] Work Phone: [facility] 06-19-2024 08:52-0400 Diastolic blood pressure 77 mm[Hg] Shyam Dolce DPM [employer] Work Phone: [facility] 06-19-2024 08:52-0400 Heart rate 73 /min Shyam Dolce DPM [employer] Work Phone: [facility] 06-19-2024 08:52-0400 Systolic blood pressure 125 mm[Hg] Shyam Dolce DPM [employer] Work Phone: [facility] 06-18-2024 10:17-0400 Body height 165.1 cm Bassam Aguilar DPM Work Phone: [facility] 06-18-2024 10:17-0400 Body mass index (BMI) [Ratio] 42.43 kg/m2 Bassam Aguilar DPM Work Phone: [facility] 06-18-2024 10:17-0400 Body weight 115.67 kg Bassam Aguilar DPM Work Phone: [facility] 06-18-2024 10:17-0400 Diastolic blood pressure 75 mm[Hg] Bassam Aguilar DPM Work Phone: [facility] 06-18-2024 10:17-0400 Heart rate 83 /min Bassam Aguilar DPM Work Phone: [facility] 06-18-2024 10:17-0400 Systolic blood pressure 125 mm[Hg] Bassam Aguilar DPM Work Phone: [facility] 04-24-2024 08:50-0400 Body height 170.2 cm Chiqui Robles MD Work Phone: [facility] 04-24-2024 08:50-0400 Body mass index (BMI) [Ratio] 42.28 kg/m2 Chiqui Robles MD Work Phone: [facility] 04-24-2024 08:50-0400 Body weight 122.47 kg Chiqui Robles MD Work Phone: [facility] 04-24-2024 08:50-0400 Diastolic blood pressure 89 mm[Hg] Chiqui Robles MD Work Phone: [facility] 04-24-2024 08:50-0400 Heart rate 61 /min Chiqui Robles MD Work Phone: [facility] 04-24-2024 08:50-0400 SaO2% (BldA) [Mass fraction] 95 % Chiqui Robles MD Work Phone: [facility] 04-24-2024 08:50-0400 Systolic blood pressure 122 mm[Hg] Chiqui Robles MD Work Phone: [facility] 02-29-2024 13:41-0400 Body height 170.2 cm Herberth Araujo MD, PhD Work Phone: [facility] 02-29-2024 13:41-0400 Body mass index (BMI) [Ratio] 42.29 kg/m2 Herberth Araujo MD, PhD Work Phone: [facility] 02-29-2024 13:41-0400 Body temperature 97.39 [degF] Herberth Araujo MD, PhD Work Phone: [facility] 02-29-2024 13:41-0400 Body weight 122.47 kg Herberth Araujo MD, PhD Work Phone: [facility] 02-29-2024 13:41-0400 Diastolic blood pressure 73 mm[Hg] Herberth Araujo MD, PhD Work Phone: [facility] 02-29-2024 13:41-0400 Heart rate 62 /min Herberth Araujo MD, PhD Work Phone: [facility] 02-29-2024 13:41-0400 SaO2% (BldA) [Mass fraction] 94 % Herberth Araujo MD, PhD Work Phone: [facility] 02-29-2024 13:41-0400 Systolic blood pressure 138 mm[Hg] Herberth Araujo MD, PhD Work Phone: [facility] 02-05-2024 12:17-0400 Body weight 124.74 kg Francoise Singletary MD Work Phone: [facility] 02-05-2024 12:17-0400 Diastolic blood pressure 70 mm[Hg] Francoise Singletary MD Work Phone: [facility] 02-05-2024 12:17-0400 Heart rate 80 /min Francoise Singletary MD Work Phone: [facility] 02-05-2024 12:17-0400 Systolic blood pressure 131 mm[Hg] Francoise Singletary MD Work Phone: [facility] 09-11-2023 11:00-0500 Body height 167.64 cm Tondra Mapus Other [facility] 09-11-2023 11:00-0500 Body mass index (BMI) [Ratio] 44.91 kg/m2 Tondra Mapus Other [employer] Other 09-11-2023 11:00-0500 Body weight 126.24 kg Tondra Mapus Other [employer] Other 09-11-2023 11:00-0500 Body weight 126.23 kg MD Scarlet Johnson Work Phone: [facility] 09-11-2023 11:00-0500 Diastolic blood pressure 82 mm[Hg] Tondra Mapus Other [facility] 09-11-2023 11:00-0500 Respiratory rate 18 /min Tondra Mapus Other [facility] [employer] Other 09-11-2023 11:00-0500 SaO2% (BldA) [Mass fraction] 99 % Tondra Mapus Other [facility] [employer] Other 09-11-2023 11:00-0500 Systolic blood pressure 153 mm[Hg] Tondra Mapus Other [facility] 08-24-2023 13:45-0500 Body height 167.64 cm Eligio Soni Other [facility] 08-24-2023 13:45-0500 Body mass index (BMI) [Ratio] 44.22 kg/m2 Eligio Soni Other [facility] [employer] Other 08-24-2023 13:45-0500 Body temperature 97.4 [degF] Eligio Soni Other [facility] [employer] Other 08-24-2023 13:45-0500 Body weight 124.29 kg Eligio Soni Other [facility] [employer] Other 08-24-2023 13:45-0500 Body weight 124.28 kg MD Scarlet Johnson Work Phone: [facility] 08-24-2023 13:45-0500 Diastolic blood pressure 60 mm[Hg] Eligio Soni Other [facility] 08-24-2023 13:45-0500 SaO2% (BldA) [Mass fraction] 97 % Eligio Soni Other [employer] Other 08-24-2023 13:45-0500 Systolic blood pressure 130 mm[Hg] Eligio Zachariah Other [facility] 03-07-2023 10:00-0400 Body height 167.64 cm Terry Kelley Other [employer] Other 03-07-2023 10:00-0400 Body mass index (BMI) [Ratio] 43.61 kg/m2 Terry Ascencion Other [employer] Other 03-07-2023 10:00-0400 Body weight 122.56 kg Terry Kimblediff Other [employer] Other 03-07-2023 10:00-0400 Diastolic blood pressure 70 mm[Hg] Terry Kelley Other [employer] Other 03-07-2023 10:00-0400 Respiratory rate 20 /min Terry Kelley Other [employer] Other 03-07-2023 10:00-0400 SaO2% (BldA) [Mass fraction] 96 % Terry Kelley Other [employer] Other 03-07-2023 10:00-0400 Systolic blood pressure 134 mm[Hg] Terry Kelley Other [employer] Other 02-14-2023 09:45-0400 Body height 172.72 cm Meenakshiboom Grant Other [employer] Other 02-14-2023 09:45-0400 Body mass index (BMI) [Ratio] 41.32 kg/m2 Tondra Mapus Other [employer] Other 02-14-2023 09:45-0400 Body weight 123.29 kg Tondra Mapus Other [employer] Other 02-14-2023 09:45-0400 Diastolic blood pressure 82 mm[Hg] Tondra Mapus Other [employer] Other 02-14-2023 09:45-0400 Respiratory rate 18 /min Tondra Mapus Other [employer] Other 02-14-2023 09:45-0400 SaO2% (BldA) [Mass fraction] 97 % Tondra Mapus Other [employer] Other 02-14-2023 09:45-0400 Systolic blood pressure 157 mm[Hg] Tondra Mapus Other [employer] Other 01-20-2023 12:15-0400 Body height 172.72 cm Carito Fitt Other [employer] Other 01-20-2023 12:15-0400 Body mass index (BMI) [Ratio] 40.71 kg/m2 Carito Fitt Other [employer] Other 01-20-2023 12:15-0400 Body weight 121.47 kg Carito Fitt Other [employer] Other 01-05-2023 11:15-0400 Body height 172.72 cm Terry Kelley Other [employer] Other 01-05-2023 11:15-0400 Body mass index (BMI) [Ratio] 40.96 kg/m2 Terry Kimblediff Other [employer] Other 01-05-2023 11:15-0400 Body weight 122.2 kg Terry Kelley Other [employer] Other 01-05-2023 11:15-0400 Diastolic blood pressure 73 mm[Hg] Terry Kimblediff Other [employer] Other 01-05-2023 11:15-0400 Respiratory rate 18 /min Terry Kimblediff Other [employer] Other 01-05-2023 11:15-0400 SaO2% (BldA) [Mass fraction] 98 % Terry Kimblediff Other [employer] Other 01-05-2023 11:15-0400 Systolic blood pressure 143 mm[Hg] Terry Kimblediff Other [employer] Other 11-24-2022 12:15-0500 Body height 172.72 cm Carito Fitt Other [employer] Other 11-24-2022 12:15-0500 Body mass index (BMI) [Ratio] 42.22 kg/m2 Carito Fitt Other [employer] Other 11-24-2022 12:15-0500 Body weight 125.96 kg Carito Fitt Other [employer] Other 11-18-2022 11:15-0500 Body height 172.72 cm Terrynikolai Kelley Other [employer] Other 11-18-2022 11:15-0500 Body mass index (BMI) [Ratio] 41.96 kg/m2 Terry Kelley Other [employer] Other 11-18-2022 11:15-0500 Body weight 125.19 kg Terry Kelley Other [employer] Other 11-18-2022 11:15-0500 Diastolic blood pressure 75 mm[Hg] Terry Kelley Other [employer] Other 11-18-2022 11:15-0500 Respiratory rate 18 /min Terry Kelley Other [employer] Other 11-18-2022 11:15-0500 SaO2% (BldA) [Mass fraction] 99 % Terry Kelley Other [employer] Other 11-18-2022 11:15-0500 Systolic blood pressure 148 mm[Hg] Terry Kelley Other [employer] Other 11-07-2022 10:15-0500 Body height 172.72 cm Tondra Mapus Other [employer] Other 11-07-2022 10:15-0500 Body mass index (BMI) [Ratio] 42.58 kg/m2 Tondra Mapus Other [employer] Other 11-07-2022 10:15-0500 Body weight 127.05 kg Tondra Mapus Other [employer] Other 11-07-2022 10:15-0500 Diastolic blood pressure 83 mm[Hg] Tondra Mapus Other [employer] Other 11-07-2022 10:15-0500 Respiratory rate 18 /min Tondra Mapus Other [employer] Other 11-07-2022 10:15-0500 SaO2% (BldA) [Mass fraction] 98 % Tondra Mapus Other [employer] Other 11-07-2022 10:15-0500 Systolic blood pressure 170 mm[Hg] Tondra Mapus Other [employer] Other 10-18-2022 15:00-0500 Body height 172.72 cm Carito Fitt Other [employer] Other 2022 16:15-0400 Body height 172.72 cm Carito Fitt Other [employer] Other 07-27-2022 12:00-0400 Body height 172.72 cm Tondra Mapus Other [employer] Other 07-27-2022 12:00-0400 Body mass index (BMI) [Ratio] 40.9 kg/m2 Tondra Mapus Other [employer] Other 07-27-2022 12:00-0400 Body weight 122.02 kg Tondra Mapus Other [employer] Other 07-27-2022 12:00-0400 Diastolic blood pressure 75 mm[Hg] Tondra Mapus Other [employer] Other 07-27-2022 12:00-0400 Respiratory rate 20 /min Tondra Mapus Other [employer] Other 07-27-2022 12:00-0400 SaO2% (BldA) [Mass fraction] 97 % Tondra Mapus Other [employer] Other 07-27-2022 12:00-0400 Systolic blood pressure 141 mm[Hg] Tondra Mapus Other [employer] Other 06-08-2022 10:45-0400 Body height 172.72 cm Carito Frandyjosiane Other [employer] Other 04-21-2022 12:00-0400 Body height 172.72 cm Tondra Mapus Other [employer] Other 04-21-2022 12:00-0400 Body mass index (BMI) [Ratio] 39.67 kg/m2 Tondra Mapus Other [employer] Other 04-21-2022 12:00-0400 Body weight 118.34 kg Tondra Mapus Other [employer] Other 04-21-2022 12:00-0400 Diastolic blood pressure 74 mm[Hg] Tondra Mapus Other [employer] Other 04-21-2022 12:00-0400 Respiratory rate 20 /min Tondra Mapus Other [employer] Other 04-21-2022 12:00-0400 SaO2% (BldA) [Mass fraction] 97 % Tondra Mapus Other [employer] Other 04-21-2022 12:00-0400 Systolic blood pressure 143 mm[Hg] Tondra Mapus Other [employer] Other 10-21-2021 12:00-0500 Body height 172.72 cm Tondra Mapus Other [employer] Other 10-21-2021 12:00-0500 Body mass index (BMI) [Ratio] 40.14 kg/m2 Tondra Mapus Other [employer] Other 10-21-2021 12:00-0500 Body weight 119.75 kg Tondra Mapus Other [employer] Other 10-21-2021 12:00-0500 Diastolic blood pressure 78 mm[Hg] Tondra Mapus Other [employer] Other 10-21-2021 12:00-0500 Respiratory rate 20 /min Tondra Mapus Other [employer] Other 10-21-2021 12:00-0500 SaO2% (BldA) [Mass fraction] 97 % Tondra Mapus Other [employer] Other 10-21-2021 12:00-0500 Systolic blood pressure 147 mm[Hg] Tondra Mapus Other [employer] Other 07-21-2021 15:45-0400 Body height 172.72 cm Morgan Kunz Other [employer] Other 07-21-2021 15:45-0400 Body mass index (BMI) [Ratio] 38.77 kg/m2 Morgan Kunz Other [employer] Other 07-21-2021 [id number] Body weight 115.67 kg Morgan Kunz Other [facility] Other 12-14-2017 15:17-0500 Body height 170.18 cm MD Scarlet Johnson Work Phone: [facility] Encounters Encounter Date Encounter Type Care Provider Facility Start: 05-21-2026 ambulatory SPECIAL NEEDS TUTOR Nanette L Karl [facility]il [facility]y:[facility] Start: 09-18-2025 ambulatory SPECIAL NEEDS TUTOR Nanette L Karl [facility] [place] Start: 07-17-2025 ambulatory SPECIAL NEEDS TUTOR Nanette L Karl Facil ity:[facility] Start: 06-25-2025 ambulatory Kaia ramsey PhD [facility] Start: 06-24-2025 End: 06-24-2025 ambulatory [facility] Start: 06-19-2025 End: 06-19-2025 ambulatory SPECIAL NEEDS TUTOR Nanette L Karl Facility:[facility] [place] [facility] Start: 06-18-2025 End: 06-18-2025 Bamboo flowsheet Cara Joshua CCC-A Work Phone: [facility] Start: 06-18-2025 End: 06-18-2025 [...] 05-22-2025 Bamboo flowsmaik Aguilar DPM Work Phone: [facility] Start: 05-22-2025 End: 05-22-2025 Patient encounter procedure Bassam Aguilar DPM Work Phone: [facility] Comment on above: Diabetes mellitus du e to underlying condition with diabetic polyneuropathy, 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 fpc insulin use (HCC) (Primary Dx); Pain due to onychomycosis of toenails of both feet; Venous insufficiency; Amputation of toe of right foot Start: 05-22-2025 End: 05-22-2025 ambulatory BASSAM AGUILAR Not Available Start: 05-21-2025 End: 05-21-2025 Bamboo flowsheet [facility]riela Smith DPM [facility] Start: 05-21-2025 End: 05-21-2025 Bamboo flowsheet Gabriela Smith DPM [facility] Start: 05-21-2025 End: 05-21-2025 Office outpatient visit 25 minutes Gabriela Smith DPM [facility] Comment on above: Diabetes mellitus du e to underlying condition with diabetic polyneuropathy, 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 insulin use (HCC) (Primary Dx); Neuropathy; Right foot pain Start: 05-21-2025 End: 05-21-2025 ambulatory GABRIELA SMITH Not Available Start: 05-20-2025 End: 05-20-2025 ambulatory SPECIAL NEEDS TUTOR Nanette Barajas Facility:[facility] Start: 05-19-2025 End: 05-19-2025 Telephone encounter Gabriela Smith DPM [facility] Start: 05-15-2025 End: 06-02-2025 ambulatory Haider Hickman Facility:[facility] [place] [facility] Start: 05-14-2025 End: 05-14-2025 ambulatory Morgan Arnold PT Work Phone: [facility] Comment on above: Cervicalgia (Primary Dx); Imbalance; Unsteadiness on feet; Frequent falls Start: 05-14-2025 End: 05-14-2025 Bamboo flowsheet Morgan Arnold PT Work Phone: [facility] Start: 05-14-2025 End: 05-14-2025 Bamboo flowsheet Morgan Arnold PT Work Phone: [facility] Start: 05-07-2025 End: 05-07-2025 ambulatory Morgan Arnold PT Work Phone: [facility] Comment on above: Cervicalgia (Primary Dx); Imbalance; Unsteadiness on feet; Frequent falls Start: 05-07-2025 End: 05-07-2025 Bamboo flowsheet Morgan Arnold PT Work Phone: [facility] Start: 05-07-2025 End: 05-07-2025 Bamboo flowsheet Morgan Arnold PT Work Phone: [facility] Start: 05-01-2025 End: 05-01-2025 Office outpatient visit 25 minutes Gabriela Smith DPM Work Phone: [facility] Comment on above: Diabetes mellitus du e to underlying condition with diabetic polyneuropathy, 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 insulin use (HCC) (Primary Dx); Neuropathy; Right [...] Frequent falls Start: 04-14-2025 End: 04-14-2025 ambulatory SPECIAL NEEDS TUTOR Nanette L Karl Facility:[facility] [place] [facility] Start: 04-09-2025 End: 05-05-2025 ambulatory SPECIAL NEEDS TUTOR Nanette L Karl Facility:[facility] [place] [facility] Start: 04-08-2025 End: 04-08-2025 Clinisync Result Encounter David Wong MD Work Phone: [facility] External Department Unsolicited Start: 04-08-2025 End: 04-08-2025 Clinisync Result Encounter David Wong MD Work Phone: [facility] External Department Unsolicited Start: 04-03-2025 End: 04-03-2025 ambulatory Deo Hickman Work Phone: [facility] Work Phone: Start: 04-03-2025 End: 04-03-2025 Patient encounter procedure Marce Bowen [facility] Work Phone: Start: 03-31-2025 End: 03-31-2025 Bamboo flowsheet David Wong MD Work Phone: [facility] Start: 03-31-2025 End: 03-31-2025 Bamboo flowsmaik Wong MD Work Phone: [facility] Start: 03-31-2025 End: 03-31-2025 Office outpatient new 45 minutes David Wong MD Work Phone: [facility] Comment on above: Imbalance (Primary D x); Asymmetric SNHL (sensorineural hearing loss); Class 3 severe obesity due to excess calories without serious comorbidity with body mass index (BMI) of 45.0 to 49.9 in adult ([facility]-HCC); Claustrophobia Start: 03-31-2025 End: 03-31-2025 ambulatory DAVID WONG Not Available Start: 03-28-2025 End: 03-28-2025 Bamboo flowsheet Cara Joshua [facility] Work Phone[facility] Start: 03-28-2025 End: 03-28-2025 Bamboo flowsmaik Joshua [facility] Work Phone[facility] Start: 03-28-2025 Preprocedural examin ation done David Wong MD Work Phone: [facility] Start: 03-28-2025 End: 03-28-2025 Clinical Support Cara Joshua [facility] Work Phone: [facility] Comment on above: Asymmetrical sensori neural hearing loss (Primary Dx); Tinnitus, bilateral; Balance problem Start: 03-26-2025 End: 03-26-2025 Patient encounter procedure Aldo Middleton SPECIAL NEEDS TUTOR-C [facility] Work Phone: Start: 03-20-2025 End: 03-20-2025 ambulatory [facility] Start: 03-19-2025 End: 03-19-2025 ambulatory Deo Hickman Work Phone: [facility] Work Phone: Start: 03-19-2025 End: 03-19-2025 Patient encounter procedure Deo Hickman Work Phone: [facility] Work Phone: Start: 03-14-2025 ambulatory Nanette L Karl Facility: [facility] [place] Start: 03-13-2025 End: 03-13-2025 Patient encounter procedure Deo Hickman Work Phone: [facility] Work Phone: Start: 03-13-2025 End: 03-13-2025 ambulatory Deo Hickman Work Phone: [facility] Work Phone: Start: 03-13-2025 End: 03-13-2025 ambulatory [facility] Work Phone: Start: 03-13-2025 End: 03-13-2025 Patient encounter procedure [facility] Work Phone: Start: 03-13-2025 End: 03-13-2025 ambulatory Haider Hickman Facility:[facility] [place] [facility] Start: 03-11-2025 End: 04-02-2025 ambulatory SPECIAL NEEDS TUTOR Nanette L Karl Facility:[facility] [place] [facility] Start: 03-06-2025 End: 03-06-2025 Bamboo flowsheet Bassam Aguilar DPM Work Phone: [facility] Start: 03-06-2025 End: 03-06-2025 Bamboo flowsheet Bassam Aguilar DPM Work Phone: [facility] Start: 03-06-2025 End: 03-06-2025 ambulatory [facility] Facility:[facility] Start: 03-06-2025 End: 03-06-2025 Patient encounter procedure Bassam Aguilar DPM Work Phone: [facility] Comment on above: Diabetes mellitus du e to underlying condition with diabetic polyneuropathy, 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 fpc insulin use ([facility]) (Primary Dx); Pain due to onychomycosis of toenails of both feet; Venous insufficiency; Amputation of toe of right foot ([facility]/HCC) Start: 03-06-2025 End: 03-06-2025 ambulatory BASSAM AGUILAR Not Available Start: 02-24-2025 ambulatory Nanette Barajas Facility: [id number] Start: 02-18-2025 End: 02-18-2025 ambulatory Haider Hickman Facility:[facility] Jocelyn silva Start: 02-10-2025 End: 02-10-2025 ambulatory Miguelangel Mac MD Facility: [facility] Start: 02-04-2025 End: 02-04-2025 ambulatory Haider Hickman Facility:[facility] Start: 01-20-2025 End: 01-20-2025 ambulatory Haider Hickman Facility:[facility] Jocelyn silva Start: 01-20-2025 End: 01-20-2025 ambulatory Miguelangel Mac MD Facility: [facility] Start: 01-13-2025 End: 01-13-2025 ambulatory Miguelangel Mac MD Facility: [facility] Start: 01-01-2025 End: 01-01-2025 ambulatory Tomi Maria Facility:[facility] Start: 12-19-2024 End: 12-19-2024 ambulatory HAIDER HICKMAN [facility] Start: 12-18-2024 End: 12-18-2024 ambulatory [facility] Start: 12-18-2024 End: 12-18-2024 Encounter for other preprocedural examination [facility] Start: 12-04-2024 End: 12-04-2024 ambulatory Nanette Barajas Facility:[facility] Start: 12-04-2024 End: 12-04-2024 ambulatory Krishna Talal Sarmini Facility:[facility] Start: 12-02-2024 End: 12-02-2024 ambulatory Miguelangel Mac MD Facility: [facility] Start: 11-27-2024 End: 11-27-2024 ambulatory Krishna Talal Sarmini Facility:[facility] Start: 11-18-2024 End: 11-18-2024 ambulatory Haider Hickman Facility:[facility] Start: 11-12-2024 End: 11-12-2024 ambulatory Haider Hickman Facility:[facility] Start: 11-07-2024 ambulatory Krishna Dulcemini Facili ty:[facility] Start: 11-06-2024 ambulatory Araceli BERMUDEZ Facility : [facility] Start: 11-04-2024 End: 11-04-2024 ambulatory Haider Hickman Facility:[facility] Start: 10-24-2024 End: 10-24-2024 ambulatory Haider Hickman Facility:[facility] Start: 10-17-2024 End: 10-17-2024 Bamboo flowsheet Bassam Aguilar DPM Work Phone: [facility] Start: 10-17-2024 End: 10-17-2024 Henrio flowsheet Bassam Aguilar DPM Work Phone: [facility] Start: 10-17-2024 End: 10-17-2024 Patient encounter procedure Bassam Aguilar DPM Work Phone: [facility] Comment on above: Diabetes mellitus du e to underlying condition with diabetic polyneuropathy, 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 insulin use ([facility]) (Primary Dx); Pain due to onychomycosis of toenails of both feet; Venous insufficiency Start: 10-17-2024 End: 10-17-2024 ambulatory BASSAM AGUILAR Not Available Start: 10-15-2024 End: 10-15-2024 ambulatory [facility] Start: 09-09-2024 End: 09-09-2024 ambulatory Haider Hickman Facility:[facility] Start: 09-09-2024 End: 09-09-2024 ambulatory Miguelangel Mac MD Facility:[facility] Start: 09-02-2024 End: 09-02-2024 ambulatory Miguelangel Mac MD Facility:[facility] Start: 08-29-2024 End: 08-29-2024 Bamboo flowsheet Matthew May DO Work Phone: [facility] Start: 08-29-2024 End: 08-29-2024 Bamboo flowsheet Matthew May DO Work Phone: [facility] Start: 08-29-2024 End: 08-29-2024 Office outpatient new 45 minutes Matthew May DO Work Phone: [facility] Comment on above: Right foot pain (Brie jesse Dx); Diabetic polyneuropathy associated with type 2 diabetes mellitus ([facility]) Start: 08-29-2024 End: 08-29-2024 ambulatory MATTHEW MAY Not Available Start: 08-15-2024 End: 08-15-2024 ambulatory [facility] Start: 08-14-2024 End: 08-14-2024 ambulatory HAIDER HICKMAN Facility:[facility] Start: 08-14-2024 End: 08-14-2024 Patient encounter [...] underlying condition with diabetic polyneuropathy, 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 insulin use (CMS/HCC); Pain due to onychomycosis of toenails of both feet Start: 08-08-2024 End: 08-08-2024 ambulatory BASSAM AGUILAR Not Available Start: 08-07-2024 End: 08-07-2024 ambulatory [facility] Start: 08-06-2024 End: 08-06-2024 Bamboo flowsheet [...] ambulatory Haider Hickman Facility:[facility] Start: 07-31-2024 End: 07-31-2024 Bamboo flowsheet Shyam [...] underlying condition with diabetic polyneuropathy, 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 insulin use ([facility]); Amputation of right great toe ([facility]) Start: 07-31-2024 End: 07-31-2024 [...] diabetic polyneuropathy, unspecified whether fpc insulin use ([facility]) Start: 07-24-2024 End: 07-24-2024 ambulatory SHYAM D DOLCE Not Available Start: 07-23-2024 End: 07-23-2024 Bamboo flowsheet Arlen Sanchez DO Work Phone: [facility] Start: 07-23-2024 End: 07-23-2024 Bamboo flowsheet Arlen Sanchez DO Work Phone: [facility] Start: 07-23-2024 End: 07-23-2024 [...] Change Request Start: 07-19-2024 End: 07-19-2024 ambulatory [facility] Start: 07-17-2024 End: 07-18-2024 ambulatory Chiqui Robles [...] 07-01-2024 End: 07-01-2024 Bamboo flowsheet Chelle Brandon PRIMARY SUBSTANCE ABUSE COUNSELOR Work Phone: [facility] Start: 07-01-2024 End: 07-01-2024 Bamboo flowsheet Chelle Brandon PRIMARY SUBSTANCE ABUSE COUNSELOR Work Phone: [facility] Start: 07-01-2024 End: 07-01-2024 Office outpatient visit 15 minutes Chelle Brandon PRIMARY SUBSTANCE ABUSE COUNSELOR Work Phone: [facility] Comment on above: Left shoulder pain, unspecified chronicity (Primary Dx); Arthritis of left acromioclavicular joint; Glenohumeral arthritis, left; Impingement of left shoulder; Internal derangement of left shoulder Start: 07-01-2024 End: 07-01-2024 ambulatory CHELLE BRANDON Not Available Start: 06-26-2024 End: 06-26-2024 ambulatory [facility] Start: 06-25-2024 End: 06-25-2024 ambulatory KAJAL R DOLCE Not Available Start: 06-25-2024 End: 06-25-2024 Office outpatient visit 15 minutes Kajal R Dolce DPM FACFAS Work Phone: [facility] Comment on above: 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); Diabetes 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, unspecified whether 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 insulin use ([facility]); Venous insufficiency; Non-pressure chronic ulcer of other part of right lower leg with fat layer exposed ([facility]) Start: 06-25-2024 End: 06-25-2024 Bamboo flowsheet Kajal R Dolce DPM FACFAS Work Phone: [facility] Start: 06-25-2024 End: 06-25-2024 Bamboo flowsheet Kajal R Dolce DPM FACFAS Work Phone: [facility] Start: 06-19-2024 End: 06-19-2024 Telephone encounter Shyam Freeman DPM FACFAS Work Phone: [facility] Start: 06-19-2024 End: 06-19-2024 ambulatory Kajal R Dolce Facility:[facility] Start: 06-19-2024 End: 06-19-2024 Office outpatient visit [...] diabetic polyneuropathy, unspecified whether fpc insulin use ([facility]); Amputation of right great toe ([facility]) Start: 06-12-2024 End: 06-12-2024 Bamboo flowsheet Chelle Brandon PRIMARY SUBSTANCE ABUSE COUNSELOR Work Phone: [facility] Start: 06-12-2024 End: 06-12-2024 Bamboo flowsheet Chelle Brandon PRIMARY SUBSTANCE ABUSE COUNSELOR Work Phone: [facility] Start: 06-12-2024 End: 06-12-2024 ambulatory [facility] Facility:[facility] Start: 06-12-2024 End: 06-12-2024 Office outpatient visit 25 minutes Chelle Brandon PRIMARY SUBSTANCE ABUSE COUNSELOR Work Phone: [facility] Comment on above: Left shoulder pain, unspecified chronicity (Primary Dx); Arthritis of left acromioclavicular joint; Glenohumeral arthritis, left; Impingement of left shoulder Start: 06-07-2024 End: 06-07-2024 [facility] Britney Hyde PhD Work Phone: Pain Recovery Comment on above: Adjustment disorder with depressed mood (Primary Dx); Complex regional pain syndrome type II of right lower limb; Chronic toe pain, right foot Start: 06-05-2024 End: 06-05-2024 ambulatory [facility] Facility:[facility] Start: 06-03-2024 End: 06-03-2024 Telephone encounter Chelle Brandon PRIMARY SUBSTANCE ABUSE COUNSELOR Work Phone: [facility] Start: 05-23-2024 [...] Pain Recovery Start: 05-06-2024 End: 05-06-2024 [facility] Morgan Trinidad Therapist Work Phone: Pain Recovery Comment on above: Adjustment disorder with depressed mood (Primary Dx); Complex regional pain syndrome type II of right lower limb; Chronic toe pain, right foot Start: 04-24-2024 End: 04-24-2024 ambulatory HAIDER HICKMAN Facility:[facility] Start: 04-24-2024 End: 04-24-2024 Patient [...] 04-03-2024 End: 04-03-2024 ambulatory HERBERTH A VAN Facility:[facility] Start: 03-19-2024 Telephone encounter Herberth meyers MD, PhD Work Phone: Pain Management Comment on above: Nurse Triage Call Start: 03-08-2024 End: 03-08-2024 ambulatory Haider Hickman Facility:[facility] Start: 02-29-2024 End: 02-29-2024 ambulatory HERBERTH A MEKMARYSE Facility:[facility] Start: 02-29-2024 End: 02-29-2024 Patient [...] Start: 02-05-2024 End: 02-05-2024 ambulatory FRANCOISE SINGLETARY Facility:[facility] Start: 02-05-2024 End: 02-05-2024 Patient encounter procedure Francoise Singletary MD Work Phone: Pain Management Comment on above: Chronic toe pain, ri ght foot (Primary Dx); Painful diabetic neuropathy (HCC); Class 3 severe obesity with serious comorbidity and body mass index (BMI) of 40.0 to 44.9 in adult, unspecified obesity type (HCC) Start: 09-12-2023 End: 09-12-2023 ambulatory Tondra Mapus Other [employer] Other Start: 09-12-2023 Telephone encounter Tondra Mapus [facility] Start: 09-11-2023 (DM) Diabetes Tondra Mapus [facility] Start: 09-11-2023 End: 09-11-2023 ambulatory MD Scarlet Johnson Work Phone: [facility] [employer] Other Start: 09-11-2023 End: 09-11-2023 Discharged Recurring MD Scarlet Johnson [facility] Phone: [facility] Work Phone: Start: 09-11-2023 End: 09-11-2023 Patient encounter procedure MD Scarlet Johnson Work Phone: [facility] Work Phone: Start: 08-24-2023 End: 08-24-2023 Patient encounter procedure MD Scarlet Johnson Work Phone: [facility] Start: 08-24-2023 End: 08-24-2023 ambulatory MD Scarlet Johnson Work Phone: [facility] Work Phone: Start: 08-24-2023 Office outpatient ne w 60 minutes Eligio Soni [facility] Start: 08-24-2023 End: 08-24-2023 Patient encounter procedure MD Scarlet Johnson Work Phone: [facility] Work Phone: Start: 06-14-2023 End: 06-14-2023 ambulatory Tondra Mapus Other [employer] Other Start: 06-14-2023 Telephone encounter Tondra Mapus [facility] Start: 06-09-2023 End: 06-09-2023 ambulatory Carito West Other [employer] Other Start: 06-09-2023 Nursing evaluation o f patient and report Carito West [facility] Start: 06-09-2023 Registered Recurring MD Scarlet franks Work Phone: [facility] Work Phone: Start: 05-31-2023 End: 05-31-2023 ambulatory Tondra Mapus Other [employer] Other Start: 05-31-2023 Telephone encounter Tondra Mapus [facility] Start: 03-07-2023 End: 03-07-2023 ambulatory Terry Kelley Other [employer] Other Start: 03-07-2023 Follow-up encounter Terry Alston [facility] Start: 02-17-2023 End: 02-17-[address] MERT WOODARD . Facility:[facility] Start: 02-14-2023 (DM) Diabetes Tondra Juanitaus [facility] Start: 02-14-2023 End: 02-14-2023 ambulatory Tondra Mapus Other [employer] Other Start: 01-20-2023 ([facility] RD FU) [facility] F/ U Registerd [employer] Carito West [facility] Start: 01-20-2023 End: 01-20-2023 ambulatory Carito West Other [employer] Other Start: 01-05-2023 End: 01-05-2023 ambulatory Terry Kelley Other [employer] Other Start: 01-05-2023 Follow-up encounter Terry moreno [facility] Start: 12-30-2022 End: 12-31-2022 ambulatory MARY APARICIO Facility:[facility] Start: 12-29-2022 End: 12-30-[address] BRITTNY MORALES Facility:[facility] Start: 12-21-2022 End: 01-28-[address] SCARLET JOHNSON . Facility:[facility] Start: 12-09-[address] SCARLET JOHNSON . Facil ity:[facility] Start: 12-08-2022 End: 12-09-[address] MORGAN ROJO Facility:[facility] Start: 11-25-2022 End: 11-26-[address] TERRY KELLEY Facility:[facility] Start: 11-24-2022 ([facility] WMNI) WMN Init ial Provider Carito West [facility] Start: 11-24-2022 End: 11-24-2022 ambulatory Carito West Other [employer] Other Start: 11-22-2022 End: 11-22-2022 ambulatory Tondra Juanitaus Other [employer] Other Start: 11-22-2022 Nursing evaluation o f patient and report Tondrboom Middleton [facility] Start: 11-18-2022 End: 11-18-2022 ambulatory Terry Ascencion Other [employer] Other Start: 11-18-2022 Nutrition therapy Terry Kelley [facility] Start: 11-08-2022 End: 11-09-[address] SCARLET JOHNSON . Facility:[facility] Start: 11-07-2022 (DM) Diabetes Tondra Emi [facility] Start: 11-07-2022 End: 11-07-2022 ambulatory Tondra Juanitaus Other [employer] Other Start: 10-18-2022 (RD) Guard Entrance Registrar Dawn Fitt [facility] Start: 10-18-2022 End: 10-18-2022 ambulatory Carito West Other [employer] Other Start: 08-18-2022 End: 08-19-[address] BRITTNY MORALES Facility:[facility] Start: 2022 ([facility] DB FU) [facility] Diabetes F/U Carito West [facility] Start: 2022 End: 08-11-[address] ARACELI BERMUDEZ Lindsay [employer] Other Start: 07-29-2022 End: 07-30-[address] SCARLET JOHNSON . Facility:[facility] Start: 07-27-2022 (DM) Diabetes Tondra Emi [facility] Start: 07-27-2022 End: 07-27-2022 ambulatory Tondra Juanitaus Other [employer] Other Start: 06-08-2022 ([employer]) Monika Alston [facility] Start: 06-08-2022 End: 06-08-2022 ambulatory Carito West Other [employer] Other Start: 04-21-2022 (DM) Diabetes Tondra Mapus [facility] Start: 04-21-2022 End: 04-21-2022 ambulatory Tondra Mapus Other [employer] Other Start: 04-21-2022 Telephone encounter Tondra Mapus [facility] Start: 04-07-2022 End: 04-08-[address] SCARLET JOHNSON . Facility: Start: 10-21-2021 (DM) Diabetes Tondra Mapus [facility] Start: 10-21-2021 End: 10-21-2021 ambulatory Tondra Mapus Other [employer] Other Start: 07-21-2021 Office outpatient ne w 45 minutes Morgan Kunz [facility] Procedures Date Procedure Procedure Detail Performing Clinician Start: 06-11-2025 End: 06-11-2025 Psychotherapy w/patient 60 minutes Kaia Torres PhD Work Phone: Start: 05-28-2025 End: 05-28-2025 [...] &/inj major jt/bursa w/o us Chelle Brandon PRIMARY SUBSTANCE ABUSE COUNSELOR Work Phone: Start: 08-24-2023 Duplex scan of lower limb veins MD Scarlet Johnson Work Phone: Plan of Treatment Date Care Activity Detail Author Start: 08-20-2025 End: 08-20-2025 Patient encounter procedure 08/20/2025 2:45 PM EST Office Visit [facility] [address] [place] [phone] Gabriela Smith DPM [address] [place] [address] [facility] Start: 08-07-2025 End: 08-07-2025 Patient encounter procedure 08/07/2025 10:00 AM EDT Procedure Visit [facility] [address] [facility] [address] [place] [phone] Bassam Aguilar, DPM [address] [facility] [address] [place] [address] [facility] Start: 07-23-2025 [facility] Work Phone: Start: 07-23-2025 ambulatory Ambulatory Facility:[facility] Start: 07-09-2025 [facility] Work Phone: Start: 06-25-2025 [facility] Work Phone: Start: 06-18-2025 End: 06-18-2025 Clinical Support [facility] Comment on above: Arrived Start: 06-11-2025 [facility] Work Phone: Start: 06-09-2025 Influenza vaccination Influenza Vaccine (#1) [facility] Start: 05-28-2025 End: 05-28-2025 [facility] Work Phone: Start: 05-22-2025 End: 05-22-2025 Patient encounter procedure [facility] Comment on above: Diabetes mellitus due to underlying cond ition with diabetic polyneuropathy, unspecified whether 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 insulin use (HCC) (Primary Dx); Pain due to onychomycosis of toenails of both feet; Venous insufficiency Start: 05-21-2025 End: 05-21-2025 Patient encounter procedure [facility] Comment on above: Arrived Start: 05-15-2025 End: 05-15-2025 Patient encounter procedure 05/15/2025 9:20 AM EDT Procedure Visit [facility] [address] [facility] [address] [place] [phone] Bassam Aguilar DPM [address] [facility] [address] [place] [address] [facility] Start: 05-14-2025 End: 05-14-2025 ambulatory [facility] Start: 05-14-2025 [facility] Work Phone: Start: 05-07-2025 End: 05-07-2025 ambulatory [facility] PT Comment on above: Cervicalgia (Primary Dx); Imbalance; Unsteadiness on feet; Frequent falls Start: 05-01-2025 End: 05-01-2025 Patient encounter procedure 05/01/2025 10:00 AM EDT Office Visit [facility] [address] [place] [phone] Gabriela Smith DPM [address] [place] [address] [facility] Start: 04-30-2025 End: 04-30-2025 Patient encounter procedure [facility] E[facility] Comment on above: Arrived Start: 04-29-2025 End: 04-29-2025 ambulatory 04/29/2025 1:00 PM EDT Treatment [facility] [address] [place] [phone] Morgan Arnold, PT [address] [place] [address] [facility] Start: 04-23-2025 End: 04-23-2025 ambulatory 04/23/2025 1:00 PM EDT Treatment [facility] [address] [place] [phone] Morgan Arnold, PT [address] [place] [phone] [facility] Start: 04-15-2025 End: 04-15-2025 ambulatory [facility] PT Comment on above: Cervicalgia (Primary Dx); Imbalance; Unsteadiness on feet; Frequent falls; Vestibular dysfunction of both ears Start: 03-31-2025 End: 03-31-2025 Patient encounter procedure [facility] Comment on above: Arrived Start: 03-28-2025 End: 03-28-2025 Clinical Support [facility] Comment on above: Arrived Start: 03-13-2025 Patient referral [facility] Work Phone: Start: 03-06-2025 End: 03-06-2025 Patient encounter procedure 03/06/2025 9:10 AM EDT Procedure Visit [facility] [address] [address] Bassam Aguilar, DPSherrell [address] [facility] [address] [place] [address] Diabetes 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, unspecified whether 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 insulin use (CMS/HCC) (Primary Dx); Pain due to onychomycosis of toenails of both feet; Venous insufficiency; Amputation of toe of right foot (CMS/HCC) [facility] Comment on above: Diabetes mellitus due to underlying cond ition with diabetic polyneuropathy, unspecified whether fpc insulin use (CMS/HCC) (Primary Dx); Pain due to onychomycosis of toenails of both feet; Venous insufficiency; Amputation of toe of right foot ([facility]) Start: 02-03-2025 ambulatory Ambulatory Facility:[facility] [place] Start: 01-21-2025 End: 01-21-2025 Patient encounter procedure 01/21/2025 3:10 PM EDT Office Visit [facility] [address] [place]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 11/25/2022 Type 2 diabetes mellitus (HCC) 11/25/2022 Anxiety 12/18/2024 Benign hypertensive 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 2024 Chest pain 01/08/2013 Chronic ulcer of left foot with fat layer exposed ([facility]) 03/28/2025 Class 3 severe obesity with serious comorbidity and body mass index (BMI) of 40.0 to 44.9 in adult ([facility]) 02/05/2024 Concentric left ventricular hypertrophy 2024 Current use of insulin ([facility]) 06/26/2024 Diabetic mononeuropathy ([facility]) 03/28/2025 Dietary counseling and surveillance 06/26/2024 MILLER [...] Diagnosis Date COVID-19 vaccine series completed Diabetes ([facility]) Hypercholesterolemia Hypertension Neuropathy in diabetes ([facility]) PVD (peripheral vascular disease) Stress fracture Past [...] (BMI) of 45.0 to 49.9 in adult ([facility]) It appears likely pt has a multisensory deficit exacerbated by his weakness and obesity. Continue PT for strength and add vest rehab. Dizziness and asymmetric SNHL could be due to an AN. MRI IAC without isabela. Needs valium for claustraphobia Proceed with ross hearing aids documented in this encounterKindred [id number] History of Present illness Narrative* CaraYULISA Kuhn [...] Ear: Type A tympanogram documented in this encounterKindred [id number] NotePatient is here today for a 3 [...] Musculoskeletal: Positive for back pain and joint pain.[facility]06-12-2025 NoteCardiovascular Medicine [facility] SUBJECTIVE No chief complaint on file. [...] running 130-150s/70-80s. He follows with endocrinology at [facility]. GI would like to start something for [...] with lymphedema. He follows with endocrinology in [place]. He has MILLER - this is unchanged. [...] program at [facility]. 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 01/23/2023 He is down about 10lbs [...] of right lower limb Coronary arteriosclerosis in [place]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 Current use of insulin (CMS/HCC) Dietary [...] tablet, DISSOLVE 1 T (more content not included)...[facility]06-05-2025 Evaluation note* Diagnosis Onset Date Resolution Status Admit Date Right leg pain acute March 13, 2025 1:13pm Right lumbar radiculopathy acute March 13, 2025 1:13pm [facility] [facility] Work Phone: 1(759) 921-540806-05-2025 Evaluation note* Diagnosis Onset Date Resolution Status Admit Date Right leg pain acute March 13, 2025 1:13pm Right lumbar radiculopathy acute March 13, 2025 1:13pm Toe pain, right acute March 11:16am [facility] Work Phone: 1(658) 587-529706-05-2025 Evaluation note* Diagnosis Onset Date Resolution Status Admit Date Right leg pain acute March 13, 2025 1:13pm Right lumbar radiculopathy acute March 13, 2025 1:13pm Toe pain, right acute March 11:16am BMI 40.0-44.9, adult acute March 26, 2025 12:57pm Chronic pain of toe of right foot ac [place] March 26, 2025 12:57pm Dietary counseling and surveillance acute March 26, 2025 12:57pm Hyperlipidemia acute March 26, 2025 12:57pm Hypertension acute March 26, 2 025 12:57pm Peripheral neuropathy acute Mar 12:57pm Type 2 diabetes mellitus acute March 26, 2025 12:57pm [facility] Work Phone: 1(927) 920-440606-05-2025 NoteNurse Consultation Note Reason for Visit Patient [...] mg= 1 tab(s), Oral, Daily Potassium Chloride (Lko-Iswv-Utr M20) 20 mEq oral tablet, extended release, [...] virus vaccine, inactivated 08/01/2022 Recorded SARS-CoV-2 (COVID-19) mRNAMUL.ORD![id number] 08/01/2022 Recorded 2023-04-14: TPV70 SARS-CoV-2 (COVID-19) mRNA-1273 [...] inactivated 08/19/2013 Recorded zoster vaccine live 09/19/2012 [facility] History of Present illness Narrative* Bassamjakob Aguilar, [...] (CMS/HCC) Hypertension (CMS/HCC) PVD (peripheral vascular disease) (CMS/[facility]) Medications: Current Outpatient Medications: [...] Partner Violence: Unknown (11/30/2023) Received from [facility] Safety & Environment Fear of Current or [...] diabetic polyneuropathy, unspecified whether fpc insulin use ([facility]) 2. Pain due to onychomycosis of toenails of both feet 3. Venous insufficiency 4. Amputation of toe of right foot ([facility]) PLAN Debride nails in [...] surgery Bassam Aguilar DPM documented in this encounterKindred [id number] NotePatient Education Orthopedics Acute Pain, Adult Acute [...] these instructions at home: Medicines ??? Take ylwt-lac-saddvje and prescription medicines only as told by [...] is severe. ? Do not take other pnrc-gtc-oeblvrf pain medicines in addition to prescription pain [...] keep your urine pale yellow. ??? Take puiw-hsv-rgctbpk or prescription medicines. ??? Eat foods that [...] provider. Document Revised: 04/19/2023 Document Reviewed: 04/19/2023 [place] Patient Education ? 2023 Paice.[facility] 12-18-2024 [facility] Note Reason [...] DM type 2 (diabetes mellitus, type 2) ([facility]), HLD (hyperlipidemia), HTN (hypertension), [...] DAY SUBCUTANEOUSLY DIRECTED, Disp: , Rfl: omega 8-ink-vqj-fish oil (Fish OiL) 1,200 (144-216) mg capsule, [...] 70 Ht 1.727 m (more content not included)...[facility] 10-17-2024 History of Present illness Narrative* [...] (CMS/HCC) Hypertension (CMS/HCC) PVD (peripheral vascular disease) (CMS/[facility]) Medications: Current Outpatient Medications: [...] Partner Violence: Unknown (11/30/2023) Re[facility] from [facility] [place] Safety & Environment Fear of [...] diabetic polyneuropathy, unspecified whether fpc insulin use ([facility]) 2. Pain due to [...] surgery Bassam Aguilar DPM documented in this encounterKindred [id number] History of Present illness Narrative* Matthew May, [...] believes a few years ago in the [place] office. Review of Systems Constitutional: Negative for [...] Diagnosis Date COVID-19 vaccine series completed Diabetes ([facility]/HCC) Hypercholesterolemia ([facility]/HCC) Hypertension ([facility]/HCC) PVD (peripheral vascular disease) ([facility]) Past Surgical History: Procedure [...] , wrist extensors , wrist flexor , hand presser strength 5/5. LUE Strength deltoid , biceps , triceps , wrist extensors , wrist flexor , hand presser strength 5/5. RLE Strength illopsoas, quadriceps, tibialis [...] reflex 0. Del Real's sign negative. Coordination: Puclnr-ms-vcwj testing and rapid alternating movements are normal [...] is already established with pain management in [place] and suggest that they can see them [...] to ketamine infusions with pain management in [place]. Isuggested, if epidural is not successful, that they consider follow up thereof. The patient can follow up with us on an as-needed basis. Thank you for consultation. Pt has been fully educated on their diagnosis, lab results, treatment options, follow up plan, return instructions, and discussion of mental health issues documented in this encounterKindred HospitalSsovuqdduu10-85-1976 NoteHNO ID: [id number] Author: CHIQUI ROBLES MD Service: ? Author Type: Physician Type: Progress Notes Filed: 08/26/2024 16:34 Note Text: [facility] STAFF PHYSICIAN NOTE OF PERSONAL [...] - psychotherapy was utilized during the visit. Pohr-qf-fqoz time: 62819 (16-37 mins) actual time spend in psychotherapy 18 minutes Type of therapeutic intervention:Supportive Target symptoms: Pain coping skills and Acceptance and adapting Progress/Session notes:processing Interactive Complexity: None STAFF PHYSICIAN:: Chiqui Robles MD DATE of SERVICE: 08/14/[facility]24[facility] History of Present illness Narrative* Chiqui Robles MD - 08/14/2024 10:29 AM EST [facility] STAFF PHYSICIAN NOTE OF PERSONAL [...] - psychotherapy was utilized during the visit. Hzvo-ae-ndgg time: 57150 (16-37 mins) actual time spend in psychotherapy 18 minutes Type of therapeutic intervention:Supportive Target symptoms: Pain coping skills and Acceptance and adapting Progress/Session notes:processing Interactive Complexity: None STAFF PHYSICIAN:: Chiqui Robles MD DATE of SERVICE: 08/14/2024 * Claudia Chilel MD - 08/14/2024 9:55 AM EST [facility] [place] August 14, 2024 This is a face [...] 14, 2024 10:37 AM documented in this encounterUc Health11-06-2024 NoteHNO ID: [id number] Author: CLAUDIA CHILEL MD Service: ? Author Type: Resident Type: Progress Notes Filed: 08/14/2024 10:51 Note Text: [facility] [place] August 14, 2024 This is a face [...] Chilel MD, AMANDA August 14, 2024 10:37 [facility]10-31-2024 History of Present illness Narrative* Bassam [...] Diagnosis Date COVID-19 vaccine series completed Diabetes ([facility]/HCC) Hypercholesterolemia (CMS/HCC) Hypertension ([facility]/HCC) PVD (peripheral vascular disease) ([facility]) Medications: Current Outpatient Medications: [...] Partner Violence: Unknown (11/30/2023) Received from [facility] [place] Safety & Environment Fear of [...] underlying condition with diabetic polyneuropathy, unspecified whether 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 insulin use ([facility]) 2. Pain due to onychomycosis of toenails of both feet 3. Amputation of toe of right foot ([facility]) PLAN Debride nails in [...] surgery Bassam Aguilar DPM documented in this encounterKindred [id number] NoteBellevue Office Cardiology Clinic Note Reason for [...] DM type 2 (diabetes mellitus, type 2) ([facility]), HLD (hyperlipidemia), HTN (hypertension), [...] DAY SUBCUTANEOUSLY DIRECTED, Disp: , Rfl: omega 9-bgh-muo-fish oil (Fish OiL) 1,200 (144-216) mg capsule, [...] right bundle branch block Echo 07/08/2024 at [facility] Echo 12/30/2022 Echo 11/15/2016 Nuclear stress test 12/29/2022 at [facility] EKG portion Assessment and Plan: Coronary artery disease, status post prior PTCA of the left circumflex artery and RCA in 2012 Last stress test 12/30/2022 which was negative for ischemia with normal ejection fraction He is on aspirin, metoprolol, and simvastatin. Clinically stable Severe LVH on recent echo probably due to uncontrolled hypertensi (more content not included)...[facility]10-23-2024 History of Present illness Narrative* Shyam Freeman DPM FACFAS - 07/31/2024 10:10 AM EDT Images from the original note were not included. Patient: Dogn Whitmore : 1950 PCP: Haider Hickman MD [...] (CMS/HCC) Hypertension (CMS/HCC) PVD (peripheral vascular disease) (CMS/[facility]) Medications: Current Outpatient Medications: [...] < 3 seconds Digits 1-5 bilateral NEURO: Talmoon Yandy 5.07 monofilament was intact B/L. Vibratory [...] diabetic polyneuropathy, unspecified whether fpc insulin use ([facility]) 3. Amputation of right great toe ([facility]) PLAN Patient had no improvement with diagnostic injection. I feel the this point the pain is not relatedto his toe but appears to be from his low back sciatic issue spoke with his primary care physician they plan to work him up for low back concerns AUGUSTIN Horn documented in this encounterKindred [id number] History of Present illness Narrative* AUGUSTIN Horn [...] < 3 seconds Digits 1-5 bilateral NEURO: Talmoon Yandy 5.07 monofilament was intact B/L. Vibratory [...] his leg. AUGUSTIN Horn documented in this encounterKindred HospitalFefwiowxhr39-94-2048 History of Present illness Narrative* Arlen Sanchez, DO - 07/23/2024 9:45 AM EDT Images from the original note were not included. HISTORY OF PRESENT ILLNESS: Dong Whitmore is an 73 y.o. @ male. Chief complaint LT shoulder pain LT Shoulder: here for MRI results [facility] 07/15/24 8 1/2 weeks ago pt fell, went to [facility] ER on 05/24/24 and had xrays [...] he does these. [place]: LT shoulder xrays [facility] 05/24/24, acetiminophen with codeine, ice, bengay, [...] IMAGING: MRI of the shoulder from the [facility] had revealed a full-thickness tear of the [...] Dr. Sanchez/darion Sanchez D.O. documented in this encounterKindred [id number] NoteCardiovascular Medicine [facility] SUBJECTIVE No chief complaint on file. Dong [...] Obesity Sleep apnea Type 2 diabetes mellitus ([facility]/HCC) Complex regional pain syndrome type II of right lower limb Coronary arteriosclerosis in 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 Current use of insulin ([facility]) Dietary counseling and surveillance Past Medical History: Diagnosis Date CAD (coronary artery disease) DM type 2 (diabetes mellitus, type 2) ([facility]) HLD (hyperlipidemia) HTN (hypertension) [...] DAY SUBCUTANEOUSLY DIRECTED, Disp: , Rfl: omega 1-shi-ddk-fish oil (Fish OiL) 1,200 (144-216) mg capsule, [...] normal. Behavior: Behavior nor (more content not included)...[facility]10-10-2024 Telephone encounter Note* Telephone Encounter - Christiano Solis RN - 07/18/2024 10:17 AM EDT Patient told to schedule an appt to discuss in detail [facility]10-10-2024 Miscellaneous Notes* Telephone Encounter - Christiano Solis RN - 07/18/2024 10:17 AM EDT Patient told to schedule an appt to discuss in detail documented in this encounterUc Health10-09-2024 NotePatient Education Nephrology Dietary Guidelines to Help [...] ? 8 oz (237 mL) of milk, yspgwse-cjqreswdfguy-fyepn milk, and calcium- fortifiedfruit juice. Calcium-fortified means [...] Spinach (cooked), rhubarb, beets, sweet potatoes, and Moroccan chard. ? Peanuts. ? Potato chips, bangladeshi fries, and baked potatoes with skin on. ? Nuts and nut products. ? Chocolate. ? If you regularly take a diuretic medicine, make sure to eat at least 1 or 2 servings of fruits orvegetables that are high in potassium each day. These include: ? Avocado. ? Banana. ? [place], prune, carrot, or tomato juice. ? Baked [...] fish oil, or vitamin B6. ? Take ssyq-jkn-zqbvtrk and prescription medicines only as told by your health care provider. Theseinclude suppleme (more content not included)...[facility]09-26-2024 Telephone encounter Note* Telephone Encounter - Carrie Perez - 07/04/2024 3:30 PM EDT Patient's called regarding MRI. Patient is now getting it done at [facility]. Patient's is requesting volume be [facility] [place]. Please advise [phone]. [facility] [id number] Miscellaneous Notes* Telephone Encounter - Carrie Perez - 07/04/2024 3:30 PM EDT Patient's called regarding MRI. Patient is now getting it done at [facility]. Patient's is requesting volume be sent to [facility] [place]. Please advise [phone]. documented in this encounterKindred HospitalMkhpakespn21-80-6995 History of Present illness Narrative* Shyam Freeman [...] < 3 seconds Digits 1-5 bilateral NEURO: Talmoon Yandy 5.07 monofilament was intact B/L. Vibratory [...] 2 weeks AUGUSTIN Horn documented in this encounterKindred HospitalGajjwkjfxv44-99-6100 History of Present illness Narrative* Chelle Brandon, PRIMARY SUBSTANCE ABUSE COUNSELOR - 07/01/2024 10:00 AM EDT Subjective Patient ID: Dong Whitmore is a 73 y.o. male. LT Shoulder Pt is RT handed. 3 weeks s/p subacromial depo medrol injection (06/12/24) with 0% improvement. States he is worse he ran into the corner of his TV about 1 week ago. 5 weeks and 5 days ago pt fell, went to [facility] ER on 05/24/24 and had xrays [...] he does these. [place]: LT shoulder xrays [facility] 05/24/24, acetiminophen with codeine, ice, bengay, [...] tolerated, f/u s/p MRI documented in this encounterKindred HospitalHqxwesldlx05-01-6107 NoteCardiovascular Medicine [facility] SUBJECTIVE Chief Complaint Patient presents with Coronary [...] with lymphedema. He follows with endocrinology in [place]. He has MILLER - this is unchanged. [...] program at [facility]. 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 01/23/2023 He is down about 10lbs [...] Obesity Sleep apnea Type 2 diabetes mellitus ([facility]/HCC) Complex regional pain syndrome type II of right lower limb Coronary arteriosclerosis in 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 Current use of insulin ([facility]) Dietary counseling and surveillance Past Medical History: Diagnosis Date CAD (coronary artery disease) DM type 2 (diabetes mellitus, type 2) ([facility]) HLD (hyperlipidemia) HTN (hypertension) [...] tablet, venlafaxine 37.5 mg (more content not included)...[facility]09-18-2024 NotePatient here for 1 year follow up CAD, hypertension, and hyperlipidemia. Had lipid panel this past December. Had foot surgery last week. Denies chest pain, SOB, palpitations, and lightheadedness/syncope. 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 Review of Systems Cardiovascular: Positive for leg swelling (RLE). Musculoskeletal: Positive for joint pain. All other systems reviewed and are negative.[facility] 06-25-2024 History of Present illness Narrative* [...] Diagnosis Date COVID-19 vaccine series completed Diabetes ([facility]) Hypercholesterolemia ([facility]) Hypertension ([facility]) PVD (peripheral vascular disease) ([facility]) Medications: Current Outpatient Medications: [...] < 3 seconds Digits 1-5 bilateral NEURO: Talmoon Yandy 5.07 monofilament was intact B/L. Vibratory [...] underlying condition with diabetic polyneuropathy, unspecified whether 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 insulin use (CMS/HCC) 3. Venous insufficiency 4. Non-pressure chronic ulcer of other part of right lower leg with fat layer exposed ([facility]) PLAN Today we applied a dry sterile [...] Dr. Howe. AUGUSTIN Sam documented in this [facility]09-11-2024 Miscellaneous Notes* Telephone Encounter - AUGUSTIN Horn - 06/19/2024 11:00 PM EDT Sx rx documented in this [facility]09-11-2024 Telephone encounter Note* Telephone Encounter - AUGUSTIN Horn - 06/19/2024 11:00 PM EDT Sx rx [facility] [id number] History of Present illness Narrative* AUGUSTIN Horn [...] Partner Violence: Unknown (11/30/2023) Re[facility] [place] Safety & Environment Fear of [...] above-stated procedure. AUGUSTIN Horn documented in this encounterKindred HospitalVkymvgfvfw45-39-4669 History of Present illness Narrative* Bassam Aguilar [...] Partner Violence: Unknown (11/30/2023) Received from [facility] [place] Safety & Environment Fear of [...] underlying condition with diabetic polyneuropathy, unspecified whether 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 insulin use ([facility]) 3. Amputation of right great toe ([facility]) PLAN Have discussed and [...] Patient may continue with conservative treatments including nipf-cls-klkfmzp anti- inflammatories and other treatments suggested today. Patient may want to be s cheduled for surgical intervention in the near future. DIPJ amputation of the right 3rd digit underlocal anesthetic and patient to have done in the near future by either myself or . Bassam Aguilar DPM documented in this encounterKindred HospitalImwjkpxrns78-66-9919 History of Present illness Narrative* Chelle Brandon, MAXIMINO - 06/12/2024 9:15 AM EDTAssociated Order(s): L Inj/Asp: L subacromial bursa Post-Procedure Diagnose(s): Impingement of left shoulder Subjective Patient ID: Dong Whitmore is a 73 y.o. male. LT Shoulder Pt is RT handed. States he is better but his shoulder still hurts a lot 2 weeks 5 days ago pt fell, went to [facility] ER on 05/24/24 and had xrays [...] doing pendulum exercises [place]: LT shoulder xrays [facility] 05/24/24, acetiminophen with codeine, ice, bengay [...] f/u in 2 weeks. documented in this encounterKindred HospitalBdoxwnzhay14-03-7263 NoteHNO ID: [id number] Author: BRITNEY HYDE, PhD Service: ? Author Type: Psychologist Type: Progress Notes Filed: 06/07/2024 14:24 Note Text: [facility] Behavioral Medicine Group Session I have communicated my name and active licensure. The patient's identity and physical location were verified at the time of this visit. Either the patient or their legal freight representative has been informed of the risks [...] a copy of the consent form on HealthHiwayridgely. The patient consented to a virtual visit and their location was confirmed. Patient location: [facility] Patient Name: Dong Whitmore CC#: [id number] Date of service: June 07, 2024 Subjective: [...] additional pain management education Britney Hyde, PhD [phone] Health08-30-2024 History of Present illness Narrative* Britney Hyde, PhD - 06/07/2024 12:22 PM EDT [facility] Behavioral Medicine Group Session I have communicated my name and active licensure. The patient's identity and physical location wereverified at the time of this visit. Either the patient or their legal freight representative has been informed of the risks [...] a copy of the consent form on HealthHiwayhart. The patient consented to a virtual visit and their location was confirmed. Patient location: [facility] confirmed Patient Name: Dong Whitmore CC#: [id number] Date of service: June 07, 2024 Subjective: [...] additional pain management education Britney Hyde, PhD [phone] documented in this encounterUc Health08-26-2024 Telephone encounter Note * Telephone Encounter - Naomy Mathis - 06/03/2024 10:32 AM EDT Patient called wanted to know if he is able to make an appointment. Says his shoulder is hurting worse and the site of the RT LT shoulder is turning yellow. Appointment? Kindred [id number] Miscellaneous Notes* Telephone Encounter - Naomy Mathis - 06/03/2024 10:32 AM EDT Patient called wanted to know if he is able to make an appointment. Says his shoulder is hurting worse and the site of the RT LT shoulder is turning yellow. Appointment? documented in this encounterKindred HospitalAyfombuagp59-23-6012 NotePatient Education Infectious Disease Cellulitis, Adult Cellulitis [...] these instructions at home: Medicines ? Take deow-rco-oxtflif and prescription medicines only as told by [...] provider. Document Revised: 07/07/2022 Document Reviewed: 07/07/2022 [employer] Patient Education ? 2022 [employer]ice.[facility] 05-06-2024 NoteHNO ID: [id number] Author: MORGAN TRINIDAD, Therapist Service: ? Author Type: Therapist Type: Progress Notes Filed: 05/07/2024 08:20 Note Text: [facility] Psychological Evaluation May 06, 2024 Dong Whitmore [facility]#: [id number] I have communicated my name and active licensure. The patient's identity and physical location were verified at the time of this visit. Either the patient or their legal freight representative has been informed of the risks and benefits of -- and alternatives to -- treatment through virtual visit and consents to proceed with the session remotely. The patient e-signed the Informed Consent for Psychological Evaluation AND Care Form, and the [facility] health care insurance benefits, fees for service, emergency procedures, and the limits of confidentiality that may pertain with any given case were discussed with the patient. The patient was given a copy of the consent form on [email or web address]. The patient consented to a virtual visit and their location was confirmed. Patient location: [place], [place] CPT Code: 4186662 Virtual Psych Diagnotic Eval Appointment Start: 9 AM This 73 year old retired for 15 years (he was having some medical problems, but they offered an early [place] [facility] package that was attractive at the time) male lives with his in [place], [place]. 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 He was referred by Chiqui Robles MD for psychological evaluation in the context of chronic pain. This consultation was shared with the referral source via the [facility] electronic medical record. He believes the reason [...] as needed. pioglitazone (ACT (more content not included)...[facility] 04-24-2024 NoteHNO ID: [id number] Author: CHIQUI ROBLES MD Service: ? Author Type: Physician Type: Progress Notes Filed: 04/24/2024 11:26 Note Text: [facility] STAFF PHYSICIAN NOTE OF PERSONAL [...] - psychotherapy was utilized during the visit. Gqor-xj-igpd time: 23157 (16-37 mins) actual time spend in psychotherapy [...] which included preparing to see the patient, tfze-fx-sasa patient care, completing clinical documentation, performing a medically appropriate examination, and counseling and educating the patient/family/caregiver. As noted, the patient's clinical situation is complex and serious with significant comorbidity of pain and functional limitations. This requires higher levels of time, intensity, and expense with longitudinal care and support. STAFF PHYSICIAN:: Chiqui Robles MD DATE of SERVICE: 04/24/2024[facility]07-17-20[facility] History of Present illness Narrative* Chiqui Robles MD - 04/24/2024 9:27 AM EDT [facility] [facility] STAFF PHYSICIAN NOTE OF PERSONAL [...] - psychotherapy was utilized during the visit. [id number] time: [id number] (16-37 mins) actual time spend in psychotherapy [...] which included preparing to see the patient, [id number] patient care, completing clinical documentation, performing a [...] MD - 04/24/2024 9:02 AM EDT THE [facility] Neurological [place] April 24, 2024 This is a face [...] consult Parish Tucker MD documented in this encounter[facility]07-17-2024 NoteHNO ID: [id number] Author: PARISH RIOS MD Service: ? Author Type: Resident Type: Progress Notes Filed: 04/24/2024 11:26 Note Text: THE [facility] Neurological [place] April 24, 2024 This is a face [...] therapy [facility] psychology consult Parish Tucker, [facility]06-13-2024 Telephone encounter Note* Telephone Encounter - Emilee So RN - 03/21/2024 11:38 AM EDT Spoke with patient and notified him of provider recommendations. Verbalized understanding. Emilee So RN [facility]06-13-2024 Miscellaneous Notes* Telephone Encounter - Emilee So [...] EDT Spoke with patient at request of take away man as patient has questions about referral to infectious disease. Patient states that he spoke with his PCP, Dr. Hickman ([phone]) who spoke with in Infectious disease at [facility]. Dr. Hickman ordered lab work at [...] planned. Emilee So RN documented in this encounterUc Health06-13-2024 Telephone encounter Note * Telephone Encounter - Eufemia Oritz PA-C - 03/21/2024 9:24 AM EDT Ok per Dr Araujo to proceed with trial - still recommending to keep appt with ID [facility] Work Phone: 1(114) 143-628106-11-2024 Telephone encounter Note* Telephone Encounter - Emilee So RN - 03/19/2024 1:28 PM EDT Spoke with patient at request of take away man as patient has questions about referral to infectious disease. Patient states that he spoke with his PCP, Dr. Hickman ([phone]) who spoke with in Infectious disease at [facility]. Dr. Hickman ordered lab work at [...] move forward as planned. Emilee So RN [facility]06-07-2024 NoteMicrobiology PROCEDURE: Blood Culture Charcoal [R1] SOURCE: Blood BODY SITE: COLLECTED DATE/TIME: 03/08/2024 08:30 EDT RECEIVED DATE/TIME: 03/08/2024 09:02 EDT START DATE/TIME: 03/08/2024 09:02 EDT FREE TEXT SOURCE: michel Hickman MD, Haider Hickman MD, Haider Bee FINAL REPORTS Final Report [] Verified Date/Time: 03/15/2024 12:00 EDT No growth at 7 days. Performing Locations R1: This test was performed at: [facility], [address] [place] [address], [id number] , , DbucavDayton Va Medical CenterComment on above:Performed By: #### [id number] #### [facility] [address] [place], [place] [id number] Instructions* Patient Instructions* Senthil Giraldo MD - 02/29/2024 1:38 PM EDT - Right DRG trial - Obtain psychological evaluation report (patient reports he just had this done ~two months ago) and send to [facility] - ID consult - Rule out infectious risk with due to the dermatitis. - Follow up: Return to clinic for the above procedure documented in this encounterUc Health05-23-2024 NoteHNO ID: [id number] Author: HERBERTH ARAUJO MD, PhD Service: ? Author Type: Physician Type: Progress Notes Filed: 03/18/2024 19:05 Note Text: [facility] New Patient Consultation Referring Physician: SELF Chief Complaint: Right third toe pain SUBJECTIVE: Dong Whitmore is a 73 year old male with a pertinent past medical history of diabetes who [facility] for the evaluation of right third toe pain. 15-year history of right third toe pain. He notes that over this time the pain has become increasingly severe has caused him significant discomfort and suffering. He has been to many specialists in the [facility] area-over the course of the [...] Mild depression 10-14 Mo (more content not included)...[facility]05-23-2024 History of Present illness Narrative* Herberth Araujo MD, PhD - 02/29/2024 1:05 PM EDT Images from the original note were not included. [facility] New Patient Consultation Referring Physician: SELF Chief Complaint: Right third toe pain SUBJECTIVE: Dong Whitmore is a 73 year old male with a pertinent past medical history of diabetes who [facility]sto [facility] for the evaluation of right third toe pain. 15-year history of right third toe pain. He notes that over this time the pain has become increasingly severe has caused him significant discomfort and suffering. He has been to many specialists in the [place] in [facility]-over the course of the past 15 [...] medical history of diabetes who [facility]sto [facility] the evaluation of right third toe pain. He describes a 15-year history of right third toe pain. He notes that over this time the pain has become increasingly severe has caused him significant discomfort and suffering. He has been to many specialists in the [facility] area-over the course of the [...] done ~two months ago) and send to [facility] - ID consult - [...] Herberth Araujo MD, PhD documented in this encounterUc Health04-30-2024 Telephone encounter Note * Telephone Encounter - Lela Hyatt RN - 02/06/2024 10:51 AM EDT Called and spoke to patient. Gave him this message from Dr. Singletary: I'd suggest seeking an appointment with the following doctors who perform DRG implantation: Dr. Carlisle, Dr. Araujo, Dr. Dan, Dr. Cortés Patient voiced understanding. [facility]04-30-2024 Miscellaneous Notes* Telephone Encounter - Lela Hyatt [...] giving him the number to schedule at [facility] to discuss DRG? I'd suggest seeking an appointment with the following doctors who perform DRG implantation: Dr. Carlisle, Dr. Araujo, Dr. Dan, Dr. Moo Heard and Dr. Kamara may do DRG - I'm not sure. Thanks Lela! ----- Message ----- From: Livia Lester PA-C Sent: 02/05/2024 2:07 PM EDT To: Francoise Singletary MD No one on this side of [facility] that I know of does DRG so, we also send to [facility] I would just have Loricall the patient and tell him this is not something you do and tell him he needs to be seen a Main ----- Message ----- From: Francoise Singletary MD Sent: 02/05/2024 1:45 PM EDT To: TRANG Lindsey! He was supposed to get referred for consideration of DRG - the only people I know who do DRG are at [facility]. How do we refer him there? From what I remember, Van Melendez Costandi, and Moo do DRG - do you know of anyone else? documented in this encounterUc Health04-30-2024 Telephone encounter Note * Telephone Encounter - Lela Hyatt RN - 02/06/2024 10:46 AM EDT ----- Message from Francoise Singletary MD sent at 02/05/2024 3:12 PM EDT ----- Do you mind calling him and giving him the number to schedule at [facility] to discuss DRG? I'd suggest seeking an appointment with the following doctors who perform DRG implantation: Dr. Carlisle, Dr. Araujo, Dr. Dan, Dr. Moo Heard and Dr. Kamara may do DRG - I'm not sure. Thanks Lela! ----- Message ----- From: Livia Lester PA-C Sent: 02/05/2024 2:07 PM EDT To: Francoise Singletary MD No one on this side of [facility] that I know of does DRG so, we also send to [facility] I would just have Loricall the patient and tell him this is not something you do and tell him he needs to be seen a Main ----- Message ----- From: Francoise Singletary MD Sent: 02/05/2024 1:45 PM EDT To: TRANG Lindsey! He was supposed to get referred for consideration of DRG - the only people I know who do DRG are at [facility]. How do we refer him there? From what I remember, [facility] Costandi, and Moo do DRG - do you know of anyone else? [facility]04-29-[facility] Instructions* Patient Instructions* Francoise Singletary MD - 02/05/2024 1:01 PM EDT Thank you for taking the time to come and see me today! Please schedule an appointment for: [facility] Consult Please follow up with [facility] Please send all of your Podiatry, Neurology, and Pain Management records to us I will refer you to a provider who performs DRG to discuss this Please come back to see me as needed documented in this encounterUc Health04-29-2024 History of Present illness Narrative* Francoise Singletary MD - 02/05/2024 11:30 AM EDT Images from the original note were not included. [facility] Consultation Date: February 02, [...] Hehas been to many specialists in the [facility]-over the course of the past [...] I noted before, he appears today while [facility] was down, and I not have [...] will refer him to a doctor at [facility] for consideration of DRG and to discuss the risks, benefits,alternatives. Diagnostics/Referrals: -Chronic Pain Recovery Program referral [facility] to [facility] pod[facility], neurology for second opinions 2. Pharmaceuticals: [...] Marital Status: Unknown Medical Decision Making [facility] EMR was reviewed during the [...] from the shared EMR documented in this encounterUc Health04-29-2024 NoteHNO ID: [id number] Author: FRANCOISE SINGLETARY MD Service: ? Author Type: Physician Type: Progress Notes Filed: 02/05/2024 15:14 Note Text: [facility] Consultation Date: February 02, [...] has been to many specialists in the [place] in [place] area-over (more content not included)...[facility]12-04-2023 Evaluation note* Encounter Date Diagnosis Assessment [...] 6.9% 2. Blood glucose levels according to Mister Bell 3 cgm download 08/29/23-09/11/23: Avg glucose 154. [...] Current use of insulin (ICD-10 - Z79.4) [facility] Other 11-16-2023 Evaluation note* Encounter Date Diagnosis Assessment Notes Treatment Notes Treatment Clinical Notes Aug, Cellulitis of right lower extremity (ICD-10 - L03.115) I did thoroughly review all the studies from [place]. I do not have any images to [...] include weight loss exercise and compression therapy. [facility] Other 09-01-2023 Evaluation note* Encounter Date Diagnosis [...] He was given a no cut Grif Sandblasting Supervisor to try and a brochure to buy them online. We discussed the Novolog pen and that he is to use it if his BG before a meal is greater than 150. He was able to dial the pen and knows how to put the pen needle on and deliver the dose. 30 minutes were spent educating the patient by Kamlesh Sparrow RN, [facility]. [facility] Other 05-30-2023 Evaluation note* Encounter Date Diagnosis [...] February, Metabolic syndrome X (ICD-10 - E88.81) [facility] Other 05-09-2023 Evaluation note* Encounter Date Diagnosis [...] last visit, continue with weight loss efforts [facility] Other 04-14-2023 Evaluation note* Encounter Date Diagnosis [...] the following goals: Add flavors to vegetables [facility] Other 03-30-2023 Evaluation note* Encounter Date Diagnosis [...] Dec, Metabolic syndrome X (ICD-10 - E88.81) [facility] Other 03-23-2023 NoteCARDIAC STRESS TEST Requesting Physician: [...] interpreted and reported nuclear myocardial perfusion imaging.[id number] Evaluation note* Encounter Date Diagnosis Assessment Notes [...] following goals: 1) Increase vegetables at dinner [facility] Other 02-14-2023 Evaluation note* Encounter Date Diagnosis [...] him and his by Kamlesh Sparrow RN, [facility]. Reviewed cgm download 11/08/22-11/20/22: Avg glucose 171. >250-1%, >180-30%, 70-180-69%, <70-0%, <540%. CV 15..2%. [employer] DROPPER TANK [employer]ORAGE, SPECIAL NEEDS TUTOR-C, BC-ADM [facility] Other 02-10-2023 Evaluation note* Encounter Date Diagnosis [...] Nov, Metabolic syndrome X (ICD-10 - E88.81) [facility] Other 01-30-2023 Evaluation note* Encounter Date Diagnosis [...] 2 sensor and an office owned, loaner [place]. His phone was not compatible with Baylee 2 or 3, or Dexcom G6. He previously wore the Baylee 14 day system and did not need training on applying the device. I did train him on the use of the reader. He was vgiven samples of [employer] Treasury Director and Skin Tac to help keep the device in place. 45 minutes were spent educating the patient by Kamlesh Sparrow RN, [facility]. [facility] Other 01-10-2023 Evaluation note* Encounter Date Diagnosis [...] program2) Try roasted cronin peppers (recipe provided) [facility] Other 11-11-2022 NotePROCEDURE: XR FOOT RT MIN [...] nuts or cheese + crackers -Only likes togolese cheese,-Recommended 15g or less for snacks; so [...] likes those-Increase vegetable intake-Vegetables: corn, peas, carrots [facility] Other 10-19-2022 Evaluation note* Encounter Date Diagnosis [...] referral to Dr. Kelley for weight management [facility] Other 08-31-2022 Evaluation note* Encounter Date Diagnosis [...] and his would cook it for him [facility] Other 07-14-2022 Evaluation note* Encounter Date Diagnosis [...] improved glycemia. Pt would likek referral to aging department supervisor. Note pt has intolerance to glp1 [...] of glucose/bp control to prevent further nephropathy [facility] Other 01-13-2022 Evaluation note* Encounter Date Diagnosis [...] medication issues. 6. Prescriptions: Pioglitazone sent to [facility]. Oct, Hyperlipidemia, unspecified hyperlipidemia type (ICD-10 - [...] brochure given today. Recommend call if interested. [facility] Other 10-13-2021 Evaluation note* Encounter Date Diagnosis Assessment Notes Treatment Notes Treatment Clinical Notes Jul, SANTANA (nonalcoholic steatohepatitis) (ICD-10 - K75.81) Jul, Other [facility] INDICATED ABOVE F/U HERE PRN [facility] Other Consult note* Clinical Note Date No Information [facility] Work Phone: Discharge summary* Clinical Note Date No Information [facility] Work Phone: Evaluation noteNo InformationNort Gremln Other Evaluation noteNo assessment information available [facility] Work Phone: Evaluation note* Diagnosis Chronic toe pain, right foot- Primary 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, not stated as uncontrolled Class 3 severe obesity with serious comorbidity and body mass index (BMI) of 40.0 to 44.9 in adult, unspecified obesity type (HCC) [facility]* Diagnosis Chronic toe pain, right foot- [...] right lower limb documented [facility]* Diagnosis Adjustment disorder with depressed mood- Primary Complex regional pain syndrome type II of right lower limb Chronic toe pain, right foot Class 3 severe obesity with serious comorbidity and body mass index (BMI) of 40.0 to 44.9 in adult, unspecified obesity type (HCC) documented [facility] this [facility]* Diagnosis Adjustment disorder with depressed mood- Primary Complex regional pain syndrome type II of right lower limb Chronic toe pain, right foot documented [facility]* Diagnosis Adjustment disorder with depressed mood- Primary Complex regional pain syndrome type II of right lower limb Chronic toe pain, right foot documented in [facility]* Diagnosis Complex regional pain syndrome type II of right lower limb [facility]* Diagnosis Acquired deformity of right toe- Primary Diabetes 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, unspecified whether 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 insulin use ([facility]) documented in this encounter [facility]* Diagnosis Internal derangement of left shoulder- Primary Arthritis of left acromioclavicular joint Complete tear of left rotator cuff, unspecified whether traumatic Left shoulder pain, unspecified chronicity documented in this encounter [facility]* Diagnosis Acquired deformity of right toe- Primary Diabetes 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, unspecified whether 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 insulin use ([facility]) Amputation of right great toe ([facility]) documented in this encounter [facility]* Diagnosis Amputation of toe of right foot ([facility])- Primary Diabetes 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, unspecified whether 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 insulin use ([facility]) Pain due to onychomycosis of toenails of both feet documented in this encounter [facility]* Diagnosis Internal derangement of left shoulder- Primary Complete tear of left rotator cuff, unspecified whether traumatic documented in this encounter [facility]* Diagnosis Complex regional pain syndrome type II of right lower limb Chronic toe pain, right foot Class 3 severe obesity with serious comorbidity and body mass index (BMI) of 40.0 to 44.9 in adult, unspecified obesity type ([facility]) [facility]* Diagnosis Right foot pain- Primary Pain in soft tissues of limb Diabetic polyneuropathy associated with type 2 diabetes mellitus ([facility]) documented in this encounter [facility]* Diagnosis Acquired deformity of right toe- Primary Left shoulder pain, unspecified chronicity- Primary Arthritis of left acromioclavicular joint Glenohumeral arthritis, left Impingement of left shoulder documented in this encounter [facility]* Diagnosis Acquired deformity of right toe- Primary Diabetes 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, unspecified whether fpc insulin use (CMS/HCC) Venous insufficiency Unspecified venous (peripheral) insufficiency Non-pressure chronic ulcer of other part of right lower leg with fat layer exposed ([facility]) Left shoulder pain, unspecified chronicity- Primary Arthritis of left acromioclavicular joint Glenohumeral arthritis, left Impingement of left shoulder documented in this encounter [facility]* Diagnosis Left shoulder pain, unspecified chronicity- Primary Arthritis of left acromioclavicular joint Glenohumeral arthritis, left Impingement of left shoulder documented in this encounter [facility]* Diagnosis Acquired deformity of right toe- Primary Diabetes 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, unspecified whether fpc insulin use ([facility]) Amputation of right great toe ([facility]) documented in this encounter [facility]* Diagnosis Acquired deformity of right toe Left shoulder pain, unspecified chronicity- Primary Arthritis of left acromioclavicular joint Glenohumeral arthritis, left Impingement of left shoulder documented in this encounter [facility]* Diagnosis Left shoulder pain, unspecified chronicity- Primary Arthritis of left acromioclavicular joint Glenohumeral arthritis, left Impingement of left shoulder Internal derangement of left shoulder documented in this encounter [facility]* Diagnosis Acquired deformity of right toe- Primary documented in this encounter [facility]* Diagnosis Internal derangement of left shoulder- Primary documented in this encounter [facility]* Diagnosis Diabetes 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, unspecified whether fpc insulin use ([facility])- Primary Pain due to onychomycosis of toenails of both feet Venous insufficiency Unspecified venous (peripheral) insufficiency documented in this encounter [facility]* Diagnosis Diabetes 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, unspecified whether 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 insulin use ([facility])- Primary Pain due to onychomycosis of toenails of both feet Venous insufficiency Unspecified venous (peripheral) insufficiency Amputation of toe of right foot ([facility]) documented in this encounter [facility]* Diagnosis Onset Date Resolution Status Admit Date Right leg pain acute March 13, 2025 1:13pm Right lumbar radiculopathy acute March 13, 2025 1:13pm [facility] Work Phone: Evaluation note* Diagnosis Asymmetrical sensorineural hearing loss- Primary Sensorineural hearing loss, asymmetrical Tinnitus, bilateral Unspecified tinnitus Balance problem Abnormality of gait documented in this encounter [facility]* Diagnosis Imbalance- Primary Abnormality of gait Asymmetric SNHL (sensorineural hearing loss) Sensorineural hearing loss, asymmetrical Class 3 severe obesity due to excess calories without serious comorbidity with body mass index (BMI) of 45.0 to 49.9 in adult ([facility]) Claustrophobia Other isolated or specific phobias documented in this encounter [facility]* Diagnosis Cervicalgia- Primary Imbalance Abnormality of gait Unsteadiness on feet Frequent falls documented in this encounter [facility]* Diagnosis Cervicalgia- Primary Imbalance Abnormality of gait Unsteadiness on feet Frequent falls documented in this encounter [facility]* Diagnosis Imbalance- Primary Abnormality of gait Asymmetric SNHL (sensorineural hearing loss) Sensorineural hearing loss, asymmetrical Cochlear hydrops of right ear documented in this encounter [facility]* Diagnosis Diabetes 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, unspecified whether fpc insulin use (HCC)- Primary Neuropathy Mononeuritis of [...] underlying condition with diabetic polyneuropathy, unspecified whether 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 insulin use (HCC)- Primary Pain due to onychomycosis of toenails of both feet Venous insufficiency Unspecified venous (peripheral) insufficiency documented in this encounter [facility]* Diagnosis Diabetes 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, unspecified whether 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 insulin use (HCC)- Primary Neuropathy Mononeuritis of unspecified site Diabetes 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, unspecified whether 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 insulin use (HCC)- Primary Pain due to onychomycosis of toenails of both feet Venous insufficiency Unspecified venous (peripheral) insufficiency documented in this encounter [facility]* Diagnosis Diabetes 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, unspecified whether 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 insulin use (HCC)- Primary Neuropathy Mononeuritis of unspecified site Right foot pain Pain in soft tissues of limb Diabetes 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, unspecified whether 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 insulin use (HCC)- Primary Pain due to onychomycosis of toenails of both feet Venous insufficiency Unspecified venous (peripheral) insufficiency documented in this encounter [facility]* Diagnosis Diabetes 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, unspecified whether fpc insulin use (HCC)- Primary Pain due to onychomycosis of toenails of both feet Venous insufficiency Unspecified venous (peripheral) insufficiency Amputation of toe of right foot documented in this encounter [facility]* Diagnosis Asymmetrical sensorineural hearing loss- Primary Sensorineural hearing loss, asymmetrical documented in this encounter [facility]* Clinical Note Date No Information [facility] Work Phone: History general Narrative - [...] first metatarsal 2-8-19 Hospitalization History see above [facility] Other History general Narrative - Reported* Type [...] Foot Surgery 10/27/2021 Hospitalization History see above [facility] Other Hiszsnx general Narrative - Reported* Type Description Date [...] Foot Surgery 10/27/2021 Hospitalization History see above [facility] Other History of Past illness Narrative* Condition Effective Dates (start - stop) O utcome No Information [facility] Work Phone: History of Present illness Narrative* Encounter Date Complaint History Of Prese nt Illness No Information [facility] Work Phone: Hospital Discharge instructionsAmbulatory Orders* Referral to Vascular Surgery Location: None Selected [facility] Work Phone: Instructions* Date Instruction Additional Infor mation No Information [facility] Work Phone: Progress note* Clinical Note Date No Information [facility] Work Phone: Reason for referral (narrative)No reason for referral [facility] Reason for referral (narrative)* Reason For Referral No Information [facility] Work Phone: Reason for visit Narrative* Consultation (Routine) - Closed Specialty Diagnoses / Procedures Referred By Contac t Referred To Contact Neurology Diagnoses Neuropathic pain, MRI / labs @ [facility] , ref by Dr Hickman Procedures MA OFFICE/OUTPATIENT NEW LOW MDM 30 MINUTES NEURO NEW PATIENT Haider Hickman MD [address] [place] [address] Phone: tel: fax: Matthew May DO [address] [facility] [address] [place] [address] Phone: tel: fax: Referral ID Status Reason Start Date Expiration Date V isits Requested Visits Authorized [id number] Closed Consult and Treat 08/22/2024 02/18/2025 1 1 [facility] N[facility]ative* Rehabilitation - Outpatient (Routine) - Authorized Specialty Diagnoses / Procedures Referred By Contac t Referred To Contact Physical Therapy Diagnoses Imbalance Procedures MA OFFICE/OUTPATIENT NEW HIGH MDM 60 MINUTES David Wong MD [address] [address] Phone: tel: fax: Morgan Arnold, PT [address] [place] [address] Phone: tel: fax: Referral ID Status Reason Start Date Expiration Date Visits Requested Visits Authorized [id number] Authorized Consult and Treat 03/31/2025 10/08/2025 1 5 [facility] Narrative* Rehabilitation - Outpatient (Routine) - Authorized Specialty Diagnoses / Procedures Referred By Contac t Referred To Contact Physical Therapy Diagnoses Imbalance Procedures MA OFFICE/OUTPATIENT NEW HIGH MDM 60 MINUTES David Wong MD 112 [facility] [address] [place] [address] Phone: tel: fax: Morgan Arnold, PT [address] [place] [address] Phone: tel: fax: Referral ID Status Reason Start Date Expiration Date Visits Requested Visits Authorized [id number] Authorized Consult and Treat 03/31/2025 10/08/2025 1 10 [facility] HealthcareReview of systems Narrative - Reported* System Pos/Neg Findings No Information [facility] Work Phone: Summary Purpose Family History [...] ref by Marce Bowen for lymphedema [facility] 2024 11:16am M79.604 March 19, 2025 [...] wo IV contrast Chelle Brandon NP [address] [address] Referral ID Status Reason Start Date Expiration Date V isits Requested Visits Authorized [id number] Pending Review 07/01/2024 12/28/2024 1 1 Specialty Diagnoses / Procedures Referred By Cindyac t Referred To Contact Orthopaedic Surgery Diagnoses Impingement of left shoulder Procedures L Inj/Asp: L subacromial bursa Chelle Brandon NP [address] [address] Referral ID Status Reason Start Date Expiration Date V isits Requested Visits Authorized [id number] Authorized 06/12/2024 12/09/2024 1 1 Specialty Diagnoses / Procedures Referred By Contac t Referred To Contact Diagnoses Acquired deformity of right toe Shyam Freeman, DPM FACFAS [address] [place] [address] Referral ID Status Reason Start Date Expiration Date V isits Requested Visits Authorized [id number] Pending Review 06/19/2024 12/16/2024 1 1 Specialty [...] [facility] 60 MINUTES Chiqui Robles MD [address] [phone] Referral ID Status Reason Start Date Expiration Date Visits Requested Visits Authorized [id number] Authorized PCP Requested Referral 06/25/2024 04/24/2025 1 1 Specialty Diagnoses / Procedures Referred By Contac t Referred To Contact Infectious Diseases Diagnoses Dermatitis of lower extremity Procedures CONSULT TO INFECTIOUS DISEASES OFFICE/OUTPATIENT [facility] 60 MINUTES Herberth Araujo MD, PhD [address] [place] [address] Referral ID Status Reason Start Date Expiration Date Visits Requested Visits Authorized [id number] Authorized PCP Requested Referral 02/29/2024 02/28/2025 1 1 Specialty Diagnoses / Procedures Referred By Contac t Referred To Contact Podiatry Diagnoses Chronic toe pain, right foot Painful diabetic neuropathy (HCC) Procedures CONSULT TO PODIATRY OFFICE/OUTPATIENT [facility] MDM 60 MINUTES Francoise Singletary MD [address] [place] [address] Referral ID Status Reason Start Date Expiration Date Visits Requested Visits Authorized [id number] Authorized PCP Requested Referral 02/05/2024 02/04/2025 1 1 Specialty Diagnoses / Procedures Referred By Contac t Referred To Contact Neurology Diagnoses Chronic toe pain, right foot Painful diabetic neuropathy (HCC) Procedures CONSULT TO NEUROLOGY OFFICE/OUTPATIENT [facility] 60 MINUTES Francoise Singletary MD [address] [place] [address] Referral ID Status Reason Start Date Expiration Date Visits Requested Visits Authorized [id number] Authorized PCP Requested Referral 02/05/2024 02/04/2025 1 1 Specialty Diagnoses / Procedures Referred By Contac t Referred To [facility] Diagnoses Chronic toe pain, right foot Painful diabetic neuropathy (HCC) Procedures CONSULT TO [facility] ([facility] PAIN) OFFICE/OUTPATIENT [facility] 60 MINUTES Francoise Singletary MD [address] [place] [phone] Referral ID Status Reason Start Date Expiration Date Visits Requested Visits Authorized [id number] Pending Review PCP Requested Referral 02/05/2024 02/04/2025 1 1 Additional Source Comments REASON FOR VISIT (unrecogniz ed section and content) Reason Comments Consult Rt foot Reason Comments Established Patient Medication Update Reason Comments Nurse Triage Call Reason Comments New Patient Specialty Diagnoses / Procedures Referred By Contac t Referred To [facility] Diagnoses Complex regional pain syndrome type II of right lower limb Chronic toe pain, right foot Class 3 severe obesity with serious comorbidity and body mass index (BMI) of 40.0 to 44.9 in adult, unspecified obesity type (HCC) Procedures CONSULT TO [facility] (CHRONIC PAIN) OFFICE/OUTPATIENT [facility] 60 MINUTES Herberth Araujo MD, PhD [address] [place] [address] Referral ID Status Reason Start Date Expiration Date Visits Requested Visits Authorized [id number] Pending Review PCP Requested Referral 04/03/2024 04/03/2025 [...] cuff, unspecified whether traumatic Arlen Sanchez, [address] [address] Phone: tel: fax: Khai Heard, DO [address] [place] [address] Phone: tel: fax: Referral ID Status Reason Start Date Expiration Date V isits Requested Visits Authorized [id number] Closed Consult and Treat 07/23/2024 01/19/2025 1 [...] [facility] 60 MINUTES Chiqui Robles MD [address] [place] [address] Referral ID Status Reason Start Date Expiration Date V isits Requested Visits Authorized [id number] Closed PCP Requested Referral 06/25/2024 04/24/2025 1 [...] and content) DATE CREATED AUTHOR 02/20/2023 [facility] DATE CREATED AUTHOR AUTHOR'S ORGANIZ ATION 03/09/2024 [facility] DATE CREATED AUTHOR AUTHOR'S ORGANIZ ATION 03/16/2024 [facility] DATE CREATED AUTHOR AUTHOR'S ORGANIZ ATION 08/28/2024 [facility] DATE CREATED AUTHOR AUTHOR'S ORGANIZ ATION 09/12/2024 [facility] DATE CREATED AUTHOR AUTHOR'S ORGANIZ ATION 11/06/2024 [facility] DATE CREATED AUTHOR AUTHOR'S ORGANIZ ATION 12/27/2024 [facility] DATE CREATED AUTHOR AUTHOR'S ORGANIZ ATION 01/19/2025 [facility] DATE CREATED AUTHOR AUTHOR'S ORGANIZ ATION 02/05/2025 [facility] DATE CREATED AUTHOR AUTHOR'S ORGANIZ ATION 02/21/2025 [facility] DATE CREATED AUTHOR AUTHOR'S ORGANIZ ATION 03/15/2025 [facility] DATE CREATED AUTHOR AUTHOR'S ORGANIZ ATION 04/21/2025 [facility] DATE CREATED AUTHOR AUTHOR'S ORGANIZ ATION 05/19/2025 [facility] DATE CREATED AUTHOR AUTHOR'S ORGANIZ ATION 05/24/2025 [facility] DATE CREATED AUTHOR AUTHOR'S ORGANIZ ATION 06/20/2025 [facility] DATE CREATED AUTHOR AUTHOR'S ORGANIZ ATION 06/20/2025 [facility] DATE CREATED AUTHOR AUTHOR'S ORGANIZ ATION 06/22/2025 [facility] DATE CREATED AUTHOR AUTHOR'S ORGANIZ ATION 06/23/2025 [facility] DATE CREATED AUTHOR AUTHOR'S ORGANIZ ATION 06/25/2025 [facility] DATE CREATED AUTHOR AUTHOR'S ORGANIZ ATION 06/26/2025 [facility] DATE CREATED AUTHOR AUTHOR'S ORGANIZ ATION 06/27/2025 [facility] (unrecognized sec tion and [...] September 11, 2023 End: September 11, 2023 Broacher Relationship Specialty Start Date End Date Miguelangel Mac MD [address] [place] [address] [address] [place] [phone] Referring Pain Management 01/29/24 Broacher Relationship Specialty Start Date End Date Miguelangel Mac MD [address] [facility] [address] [place] [address] Referring Pain Management 01/29/24 Broacher Relationship Specialty Start Date End Date Miguelangel Mac MD [address] [facility] [address] [place] [address] Referring Pain Management 01/29/24 Broacher Relationship Specialty Start Date End Date Miguelangel Mac MD [address] [place] [address] Referring Pain Management 01/29/24 Broacher Relationship Specialty Start Date End Date Haider Hickman MD [address] [place] [address] PCP - General Family Medicine 03/26/24 Miguelangel Mac MD [address] [place] [address] Referring Pain Management 01/29/24 Broacher Relationship Specialty Start Date End Date Haider Hickman MD [address] [place] [address] PCP - General Family Medicine 03/26/24 Miguelangel Mac MD [address] [place] [address] Referring Pain Management 01/29/24 Broacher Relationship Specialty Start Date End Date Haider Hickman MD [address] [place] [address] PCP - General Family Medicine 03/26/24 Miguelangel Mac MD [address] [place] [address] Referring Pain Management 01/29/24 Broacher Relationship Specialty Start Date End Date Haider Hickman MD [address] [place] [address] PCP - General Family Medicine 03/26/24 Miguelangel Mac MD [address] [place] [address] Referring Pain Management 01/29/24 Broacher Relationship Specialty Start Date End Date Haider Hickman MD [address] [place] [address] PCP - General Family Medicine 03/26/24 Miguelangel Mac MD [address] [place] [address] Referring Pain Management 01/29/24 Broacher Relationship Specialty Start Date End Date Haider Hickman MD [address] [place] [address] PCP - General Family Medicine 03/26/24 Miguelangel Mac MD [address] [place] [address] Referring Pain Management 01/29/24 Broacher Relationship Specialty Start Date End Date Haider Hickman MD [address] [place] [address] PCP - General Family Medicine 05/09/24 Broacher Relationship Specialty Start Date End Date Haider Hickman MD [address] [place] [address] PCP - General Family Medicine 05/09/24 Broacher Relationship Specialty Start Date End Date Haider Hickman MD [address] [facility] [address] PCP - General Family Medicine 05/09/24 Broacher Relationship Specialty Start Date End Date Haider Hickman MD [address] [facility] [place] [address] PCP - General Family Medicine 05/09/24 Broacher Relationship Specialty Start Date End Date Haider Hickman MD [address] [facility] [place] [address] PCP - General Family Medicine 05/09/24 Broacher Relationship Specialty Start Date End Date Haider Hickman MD [address] [place] [address] PCP - General Family Medicine 03/26/24 Miguelangel Mac MD [address] [place] [address] [address] [place] [address] Referring Pain Management 01/29/24 Broacher Relationship Specialty Start Date End Date Haider Hickman MD [address] [facility] [address] PCP - General Family Medicine 05/09/24 Broacher Relationship Specialty Start Date End Date Haider Hickman MD [address] [facility] [place] [address] PCP - General Family Medicine 05/09/24 Broacher Relationship Specialty Start Date End Date Haider Hickman MD [address] [facility] [place] [address] PCP - General Family Medicine 05/09/24 Broacher Relationship Specialty Start Date End Date Haider Hickman MD [address] [place] [address] PCP - General Family Medicine 05/09/24 Broacher Relationship Specialty Start Date End Date Haider Hickman MD [address] [place] [address] PCP - General Family Medicine 05/09/24 Broacher Relationship Specialty Start Date End Date Haider Hickman MD [address] [place] [address] PCP - General Family Medicine 05/09/24 Broacher Relationship Specialty Start Date End Date Haider Hickman MD [address] [place] [address] PCP - General Family Medicine 05/09/24 Broacher Relationship Specialty Start Date End Date Haider Hickman MD [address] [place] [address] PCP - General Family Medicine 05/09/24 Broacher Relationship Specialty Start Date End Date Haider Hickman MD [address] [place] [address] PCP - General Family Medicine 05/09/24 Broacher Relationship Specialty Start Date End Date Haider Hickman MD [address] [place] [address] PCP - General Family Medicine 05/09/24 Broacher Relationship Specialty Start Date End Date Haider Hickman MD [address] [place] [address] PCP - General Family Medicine 05/09/24 Broacher Relationship Specialty Start Date End Date Haider Hickman MD [address] [place] [address] PCP - General Family Medicine 05/09/24 Team [...] March 19, 2025 End: March 19, 2025 Broacher Relationship Specialty Start Date End Date Haider Hickman MD [address] [place] [address] PCP - General Family Medicine 05/09/24 Broacher Relationship Specialty Start Date End Date Haider Hickman MD [address] [place] [address] PCP - General Family Medicine 05/09/24 Team [...] April 03, 2025 End: April 03, 2025 Broacher Relationship Specialty Start Date End Date Haider Hickman MD [address] [facility] [place] [address] PCP - General Family Medicine 05/09/24 Broacher Relationship Specialty Start Date End Date Haider Hickman MD [address] [facility] [place] [address] PCP - General Family Medicine 05/09/24 Broacher Relationship Specialty Start Date End Date Haider Hickman MD [address] [facility] [place] [address] PCP - General Family Medicine 05/09/24 Broacher Relationship Specialty Start Date End Date Haider Hickman MD [address] [facility] [place] [address] PCP - General Family Medicine 05/09/24 Broacher Relationship Specialty Start Date End Date Haider Hickman MD [address] [facility] [place] [address] PCP - General Family Medicine 05/09/24 Broacher Relationship Specialty Start Date End Date Haider Hickman MD [address] [facility] [place] [phone] PCP - General Family Medicine 05/09/24 Broacher Relationship Specialty Start Date End Date Haider Hickman MD [address] [facility] [place] [address] PCP - General Family Medicine 05/09/24 Broacher Relationship Specialty Start Date End Date Haider Hickman MD [address] [facility] [place] [address] PCP - General Family Medicine 05/09/24 Broacher Relationship Specialty Start Date End Date Haider Hickman MD [address] [facility] [place] [address] PCP - General Family Medicine 05/09/24 Broacher Relationship Specialty Start Date End Date Haider Hickman MD [address] [facility] [place] [address] PCP - General Family Medicine 05/09/24 Broacher Relationship Specialty Start Date End Date Haider Hickman MD [address] [place] [address] PCP - General Family Medicine 05/09/24 Name Effective Dates (start - stop) Status Members No Information Broacher Relationship Specialty Start Date End Date Haider Hickman MD [address] [facility] [place] [address] PCP - General Family Medicine 05/09/24 Goals [...] or prosecute any alcohol or drug abuse patient.[facility] HealthIn the event this information is protected by the Federal Confidentiality of Alcohol and Drug Abuse Patient Records regulations: The Federal rules restrict any use of the information to criminally investigate or prosecute any alcohol or drug abuse patient.[facility] HealthIn the event this information is protected by the Federal Confidentiality of Alcohol and Drug Abuse Patient Records regulations: The Federal rules restrict any use of the information to criminally investigate or prosecute any alcohol or drug abuse patient.[facility] HealthIn the event this information is protected by the Federal Confidentiality of Alcohol and Drug Abuse Patient Records regulations: The Federal rules restrict any use of the information to criminally investigate or prosecute any alcohol or drug abuse patient.[facility] HealthIn the event this information is protected by the Federal Confidentiality of Alcohol and Drug Abuse Patient Records regulations: The Federal rules restrict any use of the information to criminally investigate or prosecute any alcohol or drug abuse patient.[facility] HealthIn the event this information is protected by the Federal Confidentiality of Alcohol and Drug Abuse Patient Records regulations: The Federal rules restrict any use of the information to criminally investigate or prosecute any alcohol or drug abuse patient.[facility] HealthIn the event this information is protected by the Federal Confidentiality of Alcohol and Drug Abuse Patient Records regulations: The Federal rules restrict any use of the information to criminally investigate or prosecute any alcohol or drug abuse patient.[facility] HealthIn the event this information is protected by the Federal Confidentiality of Alcohol and Drug Abuse Patient Records regulations: The Federal rules restrict any use of the information to criminally investigate or prosecute any alcohol or drug abuse patient.[facility] HealthIn the event this information is protected by the Federal Confidentiality of Alcohol and Drug Abuse Patient Records regulations: The Federal rules restrict any use of the information to criminally investigate or prosecute any alcohol or drug abuse patient.[facility] HealthIn the event this information is protected by the Federal Confidentiality of Alcohol and Drug Abuse Patient Records regulations: The Federal rules restrict any use of the information to criminally investigate or prosecute any alcohol or drug abuse patient.[facility] HealthIn the event this information is protected by the Federal Confidentiality of Alcohol and Drug Abuse Patient Records regulations: The Federal rules restrict any use of the information to criminally investigate or prosecute any alcohol or drug abuse patient.[facility] HealthIn the event this information is protected by the Federal Confidentiality of Alcohol and Drug Abuse Patient Records regulations: The Federal rules restrict any use of the information to criminally investigate or prosecute any alcohol or drug abuse patient.[facility] FOR RECORDS PERTAINING TO PATIENTS WHO ARE [...] BE BASED ON THE PRIMARY CLINICAL RECORDS. [facility] [employer] [facility]. provides no warranty or guarantee of the accuracy or completeness of information in this document.
[2025-06-27 16:38] VITALS: BMI 39.7
[2025-06-27 16:45] VITALS: BP 132/76; PULSE 71; TEMP 36.6; O2SAT 95
[2025-06-27] MEDS: HYDROMORPHONE HCL 0.5 MG/0.5 ML SYRINGE 0.25 MG IVP (19:41)
[2025-06-27] MEDS: ENOXAPARIN SODIUM 40 MG/0.4 ML SYRINGE SUBQ (19:42)
[2025-06-27] MEDS: ATORVASTATIN CALCIUM 10 MG TABLET PO (21:48)
[2025-06-27] MEDS: QUETIAPINE FUMARATE 25 MG TABLET 50 MG PO (21:48)
[2025-06-27] MEDS: TIZANIDINE HCL 4 MG TABLET 2 MG PO (21:49)
[2025-06-27] MEDS: CARVEDILOL 12.5 MG TABLET PO (21:49)
[2025-06-27] MEDS: BUSPIRONE HCL 10 MG TABLET PO (21:49)
[2025-06-27] MEDS: INSULIN ASPART 300 UNIT/3 ML PEN SUBQ (21:49)
[2025-06-27] MEDS: OXYCODONE HCL/ACETAMINOPHEN 5MG/325MG 1 TAB PO (21:51)
[2025-06-27] MEDS: 0.9 % SODIUM CHLORIDE 250 ML 10 ML IV (21:59)
[2025-06-28] VITALS: BP 120/70; PULSE 65; TEMP 36.8; O2SAT 90
[2025-06-28 04:00] VITALS: BP 134/75; PULSE 73; TEMP 36.7; O2SAT 93
[2025-06-28] MEDS: BUSPIRONE HCL 10 MG TABLET PO ×3 (05:36→21:32)
[2025-06-28] MEDS: PIPERACILLIN SODIUM/TAZOBACTAM 3.375 GM in 0.9 % SODIUM CHLORIDE 50 ML IV (05:36)
[2025-06-28] MEDS: OXYCODONE HCL/ACETAMINOPHEN 5MG/325MG 1 TAB PO (06:22)
[2025-06-28 06:55] VITALS: BP 159/75; PULSE 82; TEMP 36.4; O2SAT 97
--- NOTE | 2025-06-28 07:02 | PM.CN ---
Consult Note: HPI Data of Consult Patient: new to practice Consult date: 06/28/25 Requesting Physician: Allen Caceres MD Primary Care Provider: KENDRA WHITLOCK Consult Narrative Reason for consult: Right diabetic foot infection Narrative: Mr. Alcazar is a 74-year-old male who relates to an injury to his right great toe which resulted in a wound approximately a week ago. Patient relates that he followed up with his industrial roofer earlier this week who placed him on oral antibiotics. Yesterday he went to physical therapy and due to increased redness and swelling to his right lower extremity it was recommended that he present to the emergency department. He denies systemic signs of infection currently. At presentation he had no leukocytosis but did have elevated inflammatory markers. Patient has been hemodynamically stable since admission and is receiving vancomycin and Zosyn. X-rays obtained in the emergency department reveal osseous changes to the first toe which may represent postsurgical changes versus osteomyelitis. Patient also relates to a seeping ulcer on his right lateral leg which has been recurrent in nature over the last couple of years. He denies calf pain and shortness of breath. He did have venous ultrasound in the emergency department which was negative for DVT. 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 Simpson. Patient's primary complaint today involves chronic pain localized to right third toe, which has been worsening over the last 6 months. He also regularly sees pain management and vascular surgery. cc:: CC: Allen Caceres MD Review of Systems ROS Status of ROS 10 or more systems reviewed and unremarkable except as noted in history and below [facility] Medical History H/O nephrolithotomy with removal of calculi ?Z98.890 - Other specified postprocedural states (ICD-10) ?Z87.442 - Personal history of urinary calculi (ICD-10) Osteoarthritis ?M19.90 - Unspecified osteoarthritis, unspecified site (ICD-10) Amputation of toe ?S98.139A - Complete traumatic amputation of one unspecified lesser toe, initial encounter (ICD-10) H/O renal calculi ?Z87.442 - Personal history of urinary calculi (ICD-10) Obstructive sleep apnea on CPAP ?G47.33 - Obstructive sleep apnea (adult) (pediatric) (ICD-10) Neck pain ?M54.2 - Cervicalgia (ICD-10) Low back pain ?M54.50 - Low back pain, unspecified (ICD-10) Obesity ?E66.9 - Obesity, unspecified (ICD-10) Diabetes ?E11.9 - Type 2 diabetes mellitus without complications (ICD-10) Enlarged prostate ?N40.0 - Benign prostatic hyperplasia without lower urinary tract symptoms (ICD-10) Hypertension ?I10 - Essential (primary) hypertension (ICD-10) Surgical History H/O heart artery stent ?Z95.5 - Presence of coronary angioplasty implant and graft (ICD-10) Social History Highest level of school completed/degree received: some college, no degree Little interest or pleasure in doing things: nearly every day Feeling down, depressed, or hopeless: several days Meds Home Medications and Allergies Home Medications ?Medication ?Instructions ?Recorded ?Confirmed ?Type acarbose 50 mg tablet 50 mg PO TIDWM 05/24/23 06/27/25 History aspirin 81 mg tablet,delayed 81 mg PO DAILY 05/24/23 06/27/25 History release (Adult Aspirin Regimen) losartan 50 mg tablet 100 mg PO DAILY 05/24/23 06/27/25 History pioglitazone 30 mg tablet 30 mg PO DAILY 05/24/23 06/27/25 History sodium bicarbonate 650 mg tablet 1,300 mg PO TID 05/24/23 06/27/25 History bupropion HCl 300 mg 24 hr tablet, 300 mg PO DAILY 06/27/25 06/27/25 History extended release buspirone 10 mg tablet 10 mg PO TID 06/27/25 06/27/25 History carvedilol 12.5 mg tablet 12.5 mg PO BID 06/27/25 06/27/25 History cephalexin 500 mg capsule 500 mg PO Q6H 06/27/25 06/27/25 History furosemide 40 mg tablet 40 mg PO DAILY 06/27/25 06/27/25 History insulin aspart U-100 100 unit/mL 1 sliding scale dose subcut 06/27/25 06/27/25 History (3 mL) subcutaneous pen (Novolog USEASDIRECTD FlexPen U-100 Insulin aspart) multivitamin 1 tab PO DAILY 06/27/25 06/27/25 History omega 0-sjj-ocy-fish oil 1,200 mg cap PO 06/27/25 History (144 mg-216 mg) capsule (Fish Oil) quetiapine 50 mg tablet 50 mg PO .QHS 06/27/25 06/27/25 History resmetirom 100 mg tablet 100 mg PO DAILY 06/27/25 06/27/25 History (Rezdiffra) simvastatin 20 mg tablet 20 mg PO .QHS 06/27/25 06/27/25 History sitagliptin phosphate 100 mg 100 mg PO DAILY 06/27/25 06/27/25 History tablet (Januvia) tizanidine 4 mg tablet 4 mg PO Q6H PRN muscle spasticity 06/27/25 06/27/25 History venlafaxine 75 mg tablet 75 mg PO BID 06/27/25 06/27/25 History Allergies Allergy/AdvReac Type Severity Reaction Status Date / Time cefuroxime Allergy Unknown Unknown Verified 06/27/25 11:00 diflunisal (From Dolobid) Allergy Unknown Unknown Verified 06/27/25 11:00 dulaglutide (From Trulicity) Allergy Unknown Unknown Verified 06/27/25 11:00 liraglutide (From Victoza) Allergy Unknown Unknown Verified 06/27/25 11:00 rofecoxib (From Vioxx) Allergy Unknown Unknown Verified 06/27/25 11:00 celecoxib (From Celebrex) Allergy Unknown Verified 06/27/25 11:00 metformin Allergy Unknown Verified 06/27/25 11:00 naproxen (From Naprosyn) Allergy Unknown Verified 06/27/25 11:00 NSAIDS (Non-Steroidal Allergy Unknown Verified 06/27/25 11:00 Anti-Inflamma sulindac (From Clinoril) Allergy Unknown Verified 06/27/25 11:00 axetil Allergy Unknown Unknown Uncoded 06/27/25 11:00 Exam Narrative Exam Narrative: Skin: Partial-thickness ulceration noted at the distal stump of the right hallux and right lateral leg. There is serous drainage but no purulence and no fluctuance over these areas. Erythema seems to be centrally located surrounding the right leg ulcer and extends to the popliteal fossa. Vascular: Nonpalpable pedal pulses on the right with faintly palpable pulses on the left. Secondary skin changes to the right lower extremity consistent with chronic venous stasis. Neuro: Absent protective and vibratory sensation MSK: Partial amputations of right 1st and 3rd toes as well as total amputation of the second toe is noted. There is no pain out of proportion with active or passive range of motion of the ankle or knee. Constitutional Vital Signs, click to edit/add: Last Vital Signs Temp 97.5 F L 06/28/25 06:55 Pulse 82 06/28/25 06:55 Resp 20 06/28/25 06:55 BP 159/75 H 06/28/25 06:55 Pulse Ox 97 06/28/25 06:55 O2 Del Method Room Air 06/28/25 06:55 Results Labs Labs: Short CBC 06/27/25 Range/Units 11:29 WBC 7.4 (4.0-11.0) 10^3/uL Hgb 11.8 L (14.0-18.0) g/dL Hct 35.4 L (42.0-54.0) % Plt Count 276 (150-450) 10^3/uL BMP 06/27/25 11:29 Sodium 139 Potassium 3.9 Chloride 104 Carbon Dioxide 24.4 BUN 26.0 H Creatinine 1.37 H Glucose 142 H Calcium 9.1 Assessment and Plan Assessment and Plan (1) Cellulitis of leg, right: (2) Painful diabetic neuropathy: (3) Ulcer of right foot limited to breakdown of skin: (4) Ulcer of right lower extremity, limited to breakdown of skin: Plan Patient seen at bedside. Patient has 2 ulcerations both of which are superficial with no evidence of abscess. On exam, it appears infection may be more so related to the right leg ulcer rather than the right hallux ulcer. There are bony changes noted to the great toe on x-ray but clinically his examination is not consistent with osteomyelitis therefore these bony changes may represent postsurgical changes. Patient is hemodynamically stable and I do not believe patient will require surgical intervention during this hospital stay. Apply santyl to ulcers followed by DSD. He may WBAT. Continue broad-spectrum antibiotics and patient may likely be discharged on oral antibiotics. He may follow-up with me in the [place] wound center or with Dr. Simpson/Lydia within a week from d/c. I will be out of town until Monday afternoon however please feel free to call my cell with any updates/changes/concerns.
[2025-06-28 07:26] LABS: Hematocrit 38.3 % (42.0-54.0); Hemoglobin 12.4 g/dL (14.0-18.0); Mean Corpuscular HGB Conc 32.4 g/dL (29.9-35.2); Mean Corpuscular Hemoglobin 27.6 pg (25.9-34.0); Mean Corpuscular Volume 85.1 fL (80.0-94.0); Platelet Count 263 10^3/uL (150-450); Red Blood Count 4.50 10^6/uL (4.70-6.10); White Blood Count 6.3 10^3/uL (4.0-11.0)
[2025-06-28 07:55] LABS: Alanine Aminotransferase 38 U/L (16-63); Albumin Globulin Ratio 0.8; Albumin Level 3.5 g/dL (3.4-5.0); Alkaline Phosphatase 90 U/L (46-116); Anion Gap 15.7; Aspartate Amino Transferase 20 U/L (15-37); Blood Urea Nitrogen 26.0 mg/dL (7.0-18.0); Calcium 9.3 mg/dL (8.5-10.1); Carbon Dioxide 26.1 mmol/L (21.0-32.0); Chloride 102 mmol/L (98-107); Cholesterol 120 mg/dL (<=200); Estimated GFR (African America 55 (>=60 mL/min/1.73m^2); Estimated GFR (Non-African Ame 45 (>=60 mL/min/1.73m^2); Globulin 4.3 g/dL; Glucose 122 mg/dL (74-106); HDL Cholesterol 37 mg/dL (40-60); Potassium 3.8 mmol/L (3.5-5.1); Sodium 140 mmol/L (136-145); Total Protein 7.8 g/dL (6.4-8.2); Triglycerides 165 mg/dL (<=150); VLDL CHOLESTEROL 33.0 mg/dL
[2025-06-28] MEDS: FUROSEMIDE 40 MG TABLET PO (08:19)
[2025-06-28] MEDS: TIZANIDINE HCL 4 MG TABLET 2 MG PO (08:19)
[2025-06-28] MEDS: HYDROMORPHONE HCL 0.5 MG/0.5 ML SYRINGE 0.25 MG IVP (08:19)
[2025-06-28] MEDS: BUPROPION HCL 150 MG XL TABLET 24H 300 MG PO (08:19)
[2025-06-28] MEDS: SITAGLIPTIN PHOSPHATE 50 MG TABLET PO (08:19)
[2025-06-28] MEDS: INSULIN ASPART 300 UNIT/3 ML PEN SUBQ ×2 (08:20→21:33)
[2025-06-28] MEDS: CARVEDILOL 12.5 MG TABLET PO ×2 (08:29→17:42)
[2025-06-28] MEDS: COLLAGENASE CLOSTRIDIUM HIST. 250 UNITS/GM 30 GRAM TUBE 1 APPLIC TOPICAL (10:23)
[2025-06-28] MEDS: PREGABALIN 50 MG CAPSULE PO ×2 (10:23→21:32)
--- NOTE | 2025-06-28 10:31 | PC.NURSE ---
dressing change completed
[2025-06-28] MEDS: VANCOMYCIN HCL 1,750 MG in 0.9 % SODIUM CHLORIDE 500 ML 250 MG IV (12:05)
--- NOTE | 2025-06-28 12:42 | PM.HP ---
HPI H&P: HPI History of Present Illness Chief complaint: Leg cellulitis ostoemyelitis Narrative: Mr. Alcazar is a 74-year-old gentleman who came in with pain and discomfort in the foot over the last several days, worse than previously seen. Patient has a chronic ulceration involving the right great toe distally. No fever or chills. No chest pain or palpitation. No abdominal pain, nausea or vomiting Opioid HPI Opioid Management Most Recent Pain and Opioid Data: Last Pain Scale 3 Today, 12:00 Last Pain Assessment 06/27/25, 17:00 Last MAR Pain Assessment 06/27/25, 11:39 Last ORT Total Score 5 06/27/25, 16:38 Last ORT Risk Category Moderate Risk 06/27/25, 16:38 PFSH PFSH Medical History H/O nephrolithotomy with removal of calculi ?Z98.890 - Other specified postprocedural states (ICD-10) ?Z87.442 - Personal history of urinary calculi (ICD-10) Osteoarthritis ?M19.90 - Unspecified osteoarthritis, unspecified site (ICD-10) Amputation of toe ?S98.139A - Complete traumatic amputation of one unspecified lesser toe, initial encounter (ICD-10) H/O renal calculi ?Z87.442 - Personal history of urinary calculi (ICD-10) Obstructive sleep apnea on CPAP ?G47.33 - Obstructive sleep apnea (adult) (pediatric) (ICD-10) Neck pain ?M54.2 - Cervicalgia (ICD-10) Low back pain ?M54.50 - Low back pain, unspecified (ICD-10) Obesity ?E66.9 - Obesity, unspecified (ICD-10) Diabetes ?E11.9 - Type 2 diabetes mellitus without complications (ICD-10) Enlarged prostate ?N40.0 - Benign prostatic hyperplasia without lower urinary tract symptoms (ICD-10) Hypertension ?I10 - Essential (primary) hypertension (ICD-10) Surgical History H/O heart artery stent ?Z95.5 - Presence of coronary angioplasty implant and graft (ICD-10) Social History Highest level of school completed/degree received: some college, no degree Little interest or pleasure in doing things: nearly every day Feeling down, depressed, or hopeless: several days Meds Home Medications and Allergies Home Medications ?Medication ?Instructions ?Recorded ?Confirmed ?Type acarbose 50 mg tablet 50 mg PO TIDWM 05/24/23 06/27/25 History aspirin 81 mg tablet,delayed 81 mg PO DAILY 05/24/23 06/27/25 History release (Adult Aspirin Regimen) losartan 50 mg tablet 100 mg PO DAILY 05/24/23 06/27/25 History pioglitazone 30 mg tablet 30 mg PO DAILY 05/24/23 06/27/25 History sodium bicarbonate 650 mg tablet 1,300 mg PO TID 05/24/23 06/27/25 History bupropion HCl 300 mg 24 hr tablet, 300 mg PO DAILY 06/27/25 06/27/25 History extended release buspirone 10 mg tablet 10 mg PO TID 06/27/25 06/27/25 History carvedilol 12.5 mg tablet 12.5 mg PO BID 06/27/25 06/27/25 History cephalexin 500 mg capsule 500 mg PO Q6H 06/27/25 06/27/25 History furosemide 40 mg tablet 40 mg PO DAILY 06/27/25 06/27/25 History insulin aspart U-100 100 unit/mL 1 sliding scale dose subcut 06/27/25 06/27/25 History (3 mL) subcutaneous pen (Novolog USEASDIRECTD FlexPen U-100 Insulin aspart) multivitamin 1 tab PO DAILY 06/27/25 06/27/25 History omega 2-erw-emo-fish oil 1,200 mg cap PO 06/27/25 History (144 mg-216 mg) capsule (Fish Oil) quetiapine 50 mg tablet 50 mg PO .QHS 06/27/25 06/27/25 History resmetirom 100 mg tablet 100 mg PO DAILY 06/27/25 06/27/25 History (Rezdiffra) simvastatin 20 mg tablet 20 mg PO .QHS 06/27/25 06/27/25 History sitagliptin phosphate 100 mg 100 mg PO DAILY 06/27/25 06/27/25 History tablet (Januvia) tizanidine 4 mg tablet 4 mg PO Q6H PRN muscle spasticity 06/27/25 06/27/25 History venlafaxine 75 mg tablet 75 mg PO BID 06/27/25 06/27/25 History Allergies Allergy/AdvReac Type Severity Reaction Status Date / Time cefuroxime Allergy Unknown Unknown Verified 06/27/25 11:00 diflunisal (From Dolobid) Allergy Unknown Unknown Verified 06/27/25 11:00 dulaglutide (From Trulicity) Allergy Unknown Unknown Verified 06/27/25 11:00 liraglutide (From Victoza) Allergy Unknown Unknown Verified 06/27/25 11:00 rofecoxib (From Vioxx) Allergy Unknown Unknown Verified 06/27/25 11:00 celecoxib (From Celebrex) Allergy Unknown Verified 06/27/25 11:00 metformin Allergy Unknown Verified 06/27/25 11:00 naproxen (From Naprosyn) Allergy Unknown Verified 06/27/25 11:00 NSAIDS (Non-Steroidal Allergy Unknown Verified 06/27/25 11:00 Anti-Inflamma sulindac (From Clinoril) Allergy Unknown Verified 06/27/25 11:00 axetil Allergy Unknown Unknown Uncoded 06/27/25 11:00 Exam Narrative Exam Narrative: [pt is awake and alert. oriented to place, time and person, morbidly obese HEENT: [place] conjunctiva and NL buccal mucosa Neck: Supple, no tenderness Endocrine: No Thyromegaly. Vascular: No JVD or carotid bruit. Lymphatic: No cervical lymphadenopathy. Chest: CTA no DTP. Heart RRR, no extra sound or murmur. Abd: Soft, no tenderness, no rebound and no rigidity. Increase abd girth therefore clinically I could not exclude the possibility of intra abd mass or organomegaly. LE: No cyanosis or clubbing, no varices or edema. Erythema, mild induration, hyperpigmentation and skin exfoliation as well as superficial ulceration involving the right leg from the mid pardo down to the foot anteriorly, medially, laterally and posteriorly. Patient had his right second toe amputation. He has at least stage II ulceration involving the tip of the right great toe. Mild serous appearance. Induration and tenderness involving the dorsal and plantar aspect of the distal left 1st and 2nd metatarsal Neuro: A A O. Nl speech, comprehension and attention. Nl and symetrical motor and tone examination through out. []] Constitutional Vital Signs, click to edit/add: Last Vital Signs Temp 97.5 F L 06/28/25 06:55 Pulse 82 06/28/25 06:55 Resp 20 06/28/25 06:55 BP 159/75 H 06/28/25 06:55 Pulse Ox 97 06/28/25 06:55 O2 Del Method Room Air 06/28/25 06:55 Results Labs Labs: Short CBC 06/28/25 Range/Units 06:09 WBC 6.3 (4.0-11.0) 10^3/uL Hgb 12.4 L (14.0-18.0) g/dL Hct 38.3 L (42.0-54.0) % Plt Count 263 (150-450) 10^3/uL BMP 06/28/25 06:09 Sodium 140 Potassium 3.8 Chloride 102 Carbon Dioxide 26.1 BUN 26.0 H Creatinine 1.52 H Glucose 122 H Calcium 9.3 Liver Function 06/28/25 Range/Units 06:09 Total Bilirubin 0.5 (0.2-1.0) mg/dL AST 20 (15-37) U/L ALT 38 (16-63) U/L Alkaline Phosphatase 90 (46-116) U/L Albumin 3.5 (3.4-5.0) g/dL Assessment and Plan Assessment and Plan (1) Cellulitis of leg, right: (2) Painful diabetic neuropathy: (3) Ulcer of right foot limited to breakdown of skin: (4) Ulcer of right lower extremity, limited to breakdown of skin: Plan Cellulitis involving the right leg from the mid pardo down to the toes. 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 I discontinued Zosyn due to increased risk of ATN in combination with the vancomycin Patient was started on ertapenem. Vancomycin dose is handled by pharmacy. Patient was seen by act english tutor who did not recommend any surgical intervention or MRI imaging of the foot at this time. Recommended outpatient follow-up. It is hard to determine the duration of oral and/or IV antibiotic not knowing whether he has osteomyelitis or not based on imaging. Consideration for MRI of the foot on Monday. Requested arterial study to be done Monday rule out vascular disease. Severe pain not responding to Dilaudid 0.25 mg and oxycodone 5 mg. I increased the Dilaudid to 0.5 mg. I added Lyrica 50 mg twice daily. CKD stage III, near baseline. Resumed home Lasix 40 mg daily. Patient is on euvolemic state Discontinue bicarbonate 1300 twice a day due to normal bicarbonate level at this time. Diabetes, continue sliding scale. Resume home acarbose and Januvia Decrease Januvia to 50 mg daily due to CKD. Hypertension Resume home losartan and Coreg. DVT prophylaxis Lovenox subcu. History of CAD and several stents according to patient. Last stent was 4 years ago. Patient is on aspirin daily. No active chest pain or angina. Continue aspirin and beta-eder. Continue losartan Euvolemic state at this time. Cognitive loss. Memory loss. Patient seems to forget details significantly. He does remember his medications. He does not remember the name of his primary care doctor or heart doctor. He is a lot with conflicting on the sequence of event. I suspect that the patient may have vascular dementia. Previous brain imaging showed microvascular disease and atrophy. Chronic medical conditions not listed above, incidental findings seen on labs and imaging. These would need to be addressed. Could be addressed when time and condition are appropriate. Could be addressed in the outpatient setting by PCP collaboration with other needed outpatient providers.
--- NOTE | 2025-06-28 12:54 | P.PN_ITS ---
Exam Constitutional Vital Signs, click to edit/add: Last Vital Signs Temp 97.5 F L 06/28/25 06:55 Pulse 82 06/28/25 06:55 Resp 20 06/28/25 06:55 BP 159/75 H 06/28/25 06:55 Pulse Ox 97 06/28/25 06:55 O2 Del Method Room Air 06/28/25 06:55 Progress Note: Objective Labs Labs: Short CBC 06/28/25 Range/Units 06:09 WBC 6.3 (4.0-11.0) 10^3/uL Hgb 12.4 L (14.0-18.0) g/dL Hct 38.3 L (42.0-54.0) % Plt Count 263 (150-450) 10^3/uL BMP 06/28/25 06:09 Sodium 140 Potassium 3.8 Chloride 102 Carbon Dioxide 26.1 BUN 26.0 H Creatinine 1.52 H Glucose 122 H Calcium 9.3 Liver Function 06/28/25 Range/Units 06:09 Total Bilirubin 0.5 (0.2-1.0) mg/dL AST 20 (15-37) U/L ALT 38 (16-63) U/L Alkaline Phosphatase 90 (46-116) U/L Albumin 3.5 (3.4-5.0) g/dL Progress Note: A&P Assessment and Plan (1) Cellulitis of leg, right: (2) Painful diabetic neuropathy: (3) Ulcer of right foot limited to breakdown of skin: (4) Ulcer of right lower extremity, limited to breakdown of skin: Plan I called his Harmony to give her update on his condition, status and treatment plan and see if she has any questions. She did not answer the phone. I left a message for her. Telemedicine Attestation Telemedicine Attestation I conducted this encounter from [] via secure live, [id number] video conference with the patient, located at [facility] with []. Prior to the interview, the risks and benefits of telemedicine were discussed with the patient and verbal consent was obtained.
[2025-06-28 14:25] VITALS: BP 167/87; PULSE 74; TEMP 36.4; O2SAT 97
[2025-06-28] MEDS: ERTAPENEM SODIUM 0.5 GM in 0.9 % SODIUM CHLORIDE 50 ML IV (14:57)
[2025-06-28] MEDS: OXYCODONE HCL/ACETAMINOPHEN 5MG/325MG 2 TAB PO ×2 (15:03→22:47)
[2025-06-28 15:04] VITALS: BP 150/84
[2025-06-28] MEDS: ASPIRIN 81 MG TABLET.DR PO (17:42)
[2025-06-28 20:00] VITALS: BP 144/80; PULSE 71; TEMP 36.8; O2SAT 95
[2025-06-28] MEDS: ATORVASTATIN CALCIUM 10 MG TABLET PO (21:32)
[2025-06-28] MEDS: ENOXAPARIN SODIUM 40 MG/0.4 ML SYRINGE SUBQ (21:32)
[2025-06-28] MEDS: LOSARTAN POTASSIUM 50 MG TABLET 100 MG PO (21:32)
[2025-06-28] MEDS: QUETIAPINE FUMARATE 25 MG TABLET 50 MG PO (21:33)
[2025-06-29] VITALS: BP 111/68; PULSE 98; TEMP 36.9; O2SAT 91
[2025-06-29 04:00] VITALS: BP 166/79; PULSE 79; TEMP 36.4; O2SAT 95
[2025-06-29] MEDS: BUSPIRONE HCL 10 MG TABLET PO ×2 (06:01→21:25)
[2025-06-29] MEDS: OXYCODONE HCL/ACETAMINOPHEN 5MG/325MG 2 TAB PO ×2 (07:41→17:35)
[2025-06-29 07:45] VITALS: BP 146/75; PULSE 82; TEMP 36.4; O2SAT 96
--- NOTE | 2025-06-29 08:21 | XR_ITS ---
[address] [address] Patient Name: LUISITO WHITMORE MRN: [id number] date: 1950 Sex: M Assigned Patient Location: [place] Current Patient Location: [place] Accession/Order Number: [id number] Exam Date: 06/29/2025 09:00 Report Date: 06/29/2025 10:51 At the request of: MARIAN FLEMING MD Procedure: XR tibia fibula RT 2V RIGHT TIBIA AND FIBULA - - 2 views CLINICAL HISTORY: R/o osteomyelitis in the mid to lower half of Tibi COMPARISON: None FINDINGS: No fracture dislocation. No definite osseous erosion or periosteal reaction. Vascular disease. Degenerative changes of the ankle and foot partially visualized. XR/XR tibia fibula RT 2V IMPRESSION: No definite acute osseous process. If there are persistent clinical concern, consider bone scan Impression dictated by: Anup Kunz M.D. 06/29/2025 10:51 AM Dictation Location: [place] [address] Electronically authenticated by: [id number] Y Date: 06/29/2025 10:51
--- NOTE | 2025-06-29 08:25 | P.PN_ITS ---
Progress Note: Subjective Subjective Interval history: Patient is feeling better. Less pain and discomfort. No chest pain or palpitation. No abdominal pain. Constipation. Exam Narrative Exam Narrative: [pt is awake and alert. oriented to place, time and person, morbidly obese HEENT: [place] conjunctiva and NL buccal mucosa Neck: Supple, no tenderness Endocrine: No Thyromegaly. Vascular: No JVD or carotid bruit. Lymphatic: No cervical lymphadenopathy. Chest: CTA no DTP. Heart RRR, no extra sound or murmur. Abd: Soft, no tenderness, no rebound and no rigidity. Increase abd girth therefore clinically I could not exclude the possibility of intra abd mass or organomegaly. LE: No cyanosis or clubbing, no varices or edema. Erythema, mild induration, hyperpigmentation and skin exfoliation as well as superficial ulceration involving the right leg from the mid pardo down to the foot anteriorly, medially, laterally and posteriorly. Patient had his right second toe amputation. He has at least stage II ulceration involving the tip of the right great toe. Mild serous appearance. Induration and tenderness involving the dorsal and plantar aspect of the distal left 1st and 2nd metatarsal 06/29: Erythema, tenderness and swelling in the pardo laterally and posteriorly had improved since yesterday. Neuro: A A O. Nl speech, comprehension and attention. Nl and symetrical motor and tone examination through out. []] Constitutional Vital Signs, click to edit/add: Last Vital Signs Temp 97.6 F 06/29/25 07:45 Pulse 82 06/29/25 07:45 Resp 18 06/29/25 07:45 BP 146/75 H 06/29/25 07:45 Pulse Ox 96 06/29/25 07:45 O2 Del Method Room Air 06/29/25 07:45 Progress Note: A&P Assessment and Plan (1) Cellulitis of leg, right: (2) Painful diabetic neuropathy: (3) Ulcer of right foot limited to breakdown of skin: (4) Ulcer of right lower extremity, limited to breakdown of skin: Plan Cellulitis involving the right leg from the mid pardo down to the toes. 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 I discontinued Zosyn due to increased risk of ATN in combination with the vancomycin Patient was started on ertapenem. Vancomycin dose is handled by pharmacy. Check vancomycin trough level Patient was seen by office auditor who did not recommend any surgical intervention or MRI imaging of the foot at this time. Recommended outpatient follow-up. It is hard to determine the duration of oral and/or IV antibiotic not knowing whether he has osteomyelitis or not based on imaging. Consideration for MRI of the foot on Monday. Requested arterial study to be done Monday rule out vascular disease. stated that patient had arterial study at [facility]. I would review the. Venous study rule out DVT. Pending culture report. Severe pain not responding to Dilaudid 0.25 mg and oxycodone 5 mg. I increased the Dilaudid to 0.5 mg. I added Lyrica 50 mg twice daily. Pain had significantly improved. Continue current regimen. CKD stage III, near baseline. Resumed home Lasix 40 mg daily. Patient is on euvolemic state Discontinue bicarbonate 1300 twice a day due to normal bicarbonate level at this time. Diabetes, continue sliding scale. Resume home acarbose and Januvia Decrease Januvia to 50 mg daily due to CKD. Hypertension Resume home losartan and Coreg. DVT prophylaxis Lovenox subcu. History of CAD and several stents according to patient. Last stent was 4 years ago. Patient is on aspirin daily. No active chest pain or angina. Continue aspirin and beta-eder. Continue losartan Euvolemic state at this time. Cognitive loss. Memory loss. Patient seems to forget details significantly. He does remember his medications. He does not remember the name of his primary care doctor or heart doctor. He is a lot with conflicting on the sequence of event. I suspect that the patient may have vascular dementia. Previous brain imaging showed microvascular disease and atrophy. Chronic medical conditions not listed above, incidental findings seen on labs and imaging. These would need to be addressed. Could be addressed when time and condition are appropriate. Could be addressed in the outpatient setting by PCP collaboration with other needed outpatient providers. 06/29: I discussed his case with his at the bedside. I provided her information about his disease, progress, expectation and treatment plan I answered all of her questions
[2025-06-29] MEDS: MAGNESIUM HYDROXIDE 2,400 MG/10 ML ORAL.SUSP 2400 MG PO (11:43)
[2025-06-29] MEDS: SITAGLIPTIN PHOSPHATE 50 MG TABLET PO (11:43)
[2025-06-29] MEDS: PREGABALIN 50 MG CAPSULE PO ×2 (11:44→21:25)
[2025-06-29] MEDS: FUROSEMIDE 40 MG TABLET PO (11:44)
[2025-06-29] MEDS: SENNOSIDES/DOCUSATE SODIUM 1 TAB TABLET 2 TAB PO ×2 (11:44→11:49)
[2025-06-29] MEDS: BUPROPION HCL 150 MG XL TABLET 24H 300 MG PO (11:44)
[2025-06-29] MEDS: COLLAGENASE CLOSTRIDIUM HIST. 250 UNITS/GM 30 GRAM TUBE 1 APPLIC TOPICAL (11:45)
[2025-06-29] MEDS: CARVEDILOL 12.5 MG TABLET PO ×2 (11:46→17:35)
[2025-06-29] MEDS: VANCOMYCIN HCL 1,750 MG in 0.9 % SODIUM CHLORIDE 500 ML 250 MG IV (11:50)
[2025-06-29] MEDS: 0.9 % SODIUM CHLORIDE 250 ML 10 ML IV (11:50)
[2025-06-29] MEDS: HYDROMORPHONE HCL 0.5 MG/0.5 ML SYRINGE IVP (12:37)
[2025-06-29 12:40] VITALS: BP 138/76; PULSE 76; TEMP 36.7; O2SAT 95
[2025-06-29] MEDS: ERTAPENEM SODIUM 0.5 GM in 0.9 % SODIUM CHLORIDE 50 ML IV (14:06)
[2025-06-29] MEDS: TIZANIDINE HCL 4 MG TABLET 2 MG PO (14:09)
[2025-06-29 15:25] VITALS: BP 142/76; PULSE 74; TEMP 36.8; O2SAT 92
[2025-06-29] MEDS: INSULIN ASPART 300 UNIT/3 ML PEN SUBQ ×2 (17:36→21:25)
[2025-06-29] MEDS: ASPIRIN 81 MG TABLET.DR PO (17:37)
[2025-06-29 19:40] VITALS: BP 137/71; PULSE 72; TEMP 37.1; O2SAT 91
[2025-06-29] MEDS: LOSARTAN POTASSIUM 50 MG TABLET 100 MG PO (21:25)
[2025-06-29] MEDS: QUETIAPINE FUMARATE 25 MG TABLET 50 MG PO (21:25)
[2025-06-29] MEDS: ATORVASTATIN CALCIUM 10 MG TABLET PO (21:25)
[2025-06-29] MEDS: ENOXAPARIN SODIUM 40 MG/0.4 ML SYRINGE SUBQ (21:26)
[2025-06-30] VITALS: BP 153/88; PULSE 79; TEMP 36.6; O2SAT 93
[2025-06-30 04:00] VITALS: BP 129/75; PULSE 69; TEMP 36.5; O2SAT 95
[2025-06-30] MEDS: BUSPIRONE HCL 10 MG TABLET PO ×3 (05:23→22:03)
[2025-06-30] MEDS: OXYCODONE HCL/ACETAMINOPHEN 5MG/325MG 2 TAB PO ×3 (05:46→23:18)
[2025-06-30 06:12] LABS: Anion Gap 16.1; Blood Urea Nitrogen 25.0 mg/dL (7.0-18.0); Calcium 9.6 mg/dL (8.5-10.1); Carbon Dioxide 26.0 mmol/L (21.0-32.0); Chloride 102 mmol/L (98-107); Estimated GFR (African America >60 (>=60 mL/min/1.73m^2); Estimated GFR (Non-African Ame 54 (>=60 mL/min/1.73m^2); Glucose 114 mg/dL (74-106); Potassium 4.1 mmol/L (3.5-5.1); Sodium 140 mmol/L (136-145)
[2025-06-30] MEDS: HYDROMORPHONE HCL 0.5 MG/0.5 ML SYRINGE IVP (07:43)
[2025-06-30 07:45] VITALS: BP 127/66; PULSE 100; TEMP 36.7; O2SAT 95
--- NOTE | 2025-06-30 08:00 | CM.NOTE ---
Rounds made with Dr. Caceres, pt continues with severe pain to foot. Dr. Caceres discussed with pt about MRI today for further evaluation. No discharge today.
[2025-06-30] MEDS: COLLAGENASE CLOSTRIDIUM HIST. 250 UNITS/GM 30 GRAM TUBE 1 APPLIC TOPICAL (09:25)
[2025-06-30] MEDS: SITAGLIPTIN PHOSPHATE 50 MG TABLET PO (09:26)
[2025-06-30] MEDS: CARVEDILOL 12.5 MG TABLET PO ×2 (09:27→16:41)
[2025-06-30] MEDS: FUROSEMIDE 40 MG TABLET PO (09:27)
[2025-06-30] MEDS: BUPROPION HCL 150 MG XL TABLET 24H 300 MG PO (09:27)
[2025-06-30] MEDS: PREGABALIN 50 MG CAPSULE PO ×2 (09:27→22:03)
[2025-06-30] MEDS: SENNOSIDES/DOCUSATE SODIUM 1 TAB TABLET 2 TAB PO (09:27)
--- NOTE | 2025-06-30 09:58 | MR_ITS ---
[address] [address] Patient Name: LUISITO WHITMORE MRN: [id number] date: 1950 Sex: M Assigned Patient Location: [place] Current Patient Location: [place] Accession/Order Number: [id number] Exam Date: 06/30/2025 11:15 Report Date: 06/30/2025 14:09 At the request of: MARIAN FLEMING MD Procedure: MR foot RT wo con MR foot RT wo con 06/30/2025 12:13 PM SIGNS AND SYMPTOMS: Pain, r/o abscess or osteomyelitis of first through third digits, diabetic foot infection PROTOCOL: Multiplanar multisequence MR images of the right foot without contrast COMPARISON: 06/27/2025 FINDINGS: Lisfranc ligament: Intact. Hallux: Osseous: There is evidence of amputation of the distal phalanx and partial amputation of the proximal phalanx of the great toe. There is edema along the distal aspect of the remnants of the proximal phalanx suspicious for osteomyelitis.. Extensor tendon: Normal. Flexor tendon: Normal. First metatarsophalangeal joint: Degenerative changes are noted with bony spurring along the head of the first metatarsal.. Hallux-sesamoid complex: Normal. Second ray: Osseous: The second digit has been removed. Extensor tendon: Normal. Flexor tendon: Normal. Second metatarsophalangeal joint: Status post amputation of the second digit. Plantar plate: Normal. Third ray: Osseous: The middle and distal phalanx have been removed. Extensor tendon: Normal. Flexor tendon: Normal. Third metatarsophalangeal joint: Preserved. Plantar plate: Normal. Fourth ray: Osseous: Normal. Extensor tendon: Normal. Flexor tendon: Normal. Fourth metatarsophalangeal joint: Intact. Plantar plate: Normal. Fifth ray: Osseous: Normal. Extensor tendon: Normal. Flexor tendon: Normal. Fifth metatarsophalangeal joint: Intact. Plantar plate: Normal. Interspaces: Interdigital (Zambrano) neuroma: None. Intermetatarsal bursitis: None. Soft tissues: There is diffuse soft tissue swelling suggesting cellulitis. No evidence of abscess formation.. Muscles: Normal. Bones: Extensive subchondral edema is noted in the talus as well as the tarsal bones suggesting Charcot arthropathy. Nerves: Normal. Blood vessels: Normal. MR/MR foot RT wo con IMPRESSION: Findings are suspicious for osteomyelitis along the remnants of the proximal phalanx of the great toe. There is diffuse soft tissue swelling suggesting cellulitis. No evidence of abscess formation. Additional chronic findings are noted as above. Impression dictated by: Shane Chavis M.D. 06/30/2025 2:09 PM Dictation Location: [place] [address] Electronically authenticated by: [id number] Y Date: 06/30/2025 14:09
--- NOTE | 2025-06-30 10:07 | P.PN_ITS ---
Progress Note: Subjective Subjective Interval history: Patient is feeling better. Less pain and discomfort. No chest pain or palpitation. No abdominal pain. Constipation. Exam Constitutional Vital Signs, click to edit/add: Last Vital Signs Temp 98.0 F 06/30/25 07:45 Pulse 100 H 06/30/25 07:45 Resp 16 06/30/25 07:45 BP 127/66 06/30/25 07:45 Pulse Ox 95 06/30/25 07:45 O2 Del Method Room Air 06/30/25 07:45 Progress Note: Objective Labs Labs: [facility] 06/30/25 04:56 Sodium 140 Potassium 4.1 Chloride 102 Carbon Dioxide 26.0 BUN 25.0 H Creatinine 1.30 Glucose 114 H Calcium 9.6 Progress Note: A&P Assessment and Plan (1) Cellulitis of leg, right: (2) Painful diabetic neuropathy: (3) Ulcer of right foot limited to breakdown of skin: (4) Ulcer of right lower extremity, limited to breakdown of skin:
--- NOTE | 2025-06-30 10:37 | P.PN_ITS ---
Progress Note: Subjective Subjective Interval history: Patient reported that his pain is a lot worse in his foot. No chest pain or palpitation. No abdominal pain. Constipation. Exam Narrative Exam Narrative: [pt is awake and alert. oriented to place, time and person, morbidly obese HEENT: [place] conjunctiva and NL buccal mucosa Neck: Supple, no tenderness Endocrine: No Thyromegaly. Vascular: No JVD or carotid bruit. Lymphatic: No cervical lymphadenopathy. Chest: CTA no DTP. Heart RRR, no extra sound or murmur. Abd: Soft, no tenderness, no rebound and no rigidity. Increase abd girth therefore clinically I could not exclude the possibility of intra abd mass or organomegaly. LE: No cyanosis or clubbing, no varices or edema. Erythema, mild induration, hyperpigmentation and skin exfoliation as well as superficial ulceration involving the right leg from the mid pardo down to the foot anteriorly, medially, laterally and posteriorly. Patient had his right second toe amputation. He has at least stage II ulceration involving the tip of the right great toe. Mild serous appearance. Induration and tenderness involving the dorsal and plantar aspect of the distal left 1st and 2nd metatarsal 06/29: Erythema, tenderness and swelling in the pardo laterally and posteriorly had improved since yesterday. 06/30: Similar appearance today. Tenderness over the distal metatarsal. Patient has a history of second toe amputated. Neuro: A A O. Nl speech, comprehension and attention. Nl and symetrical motor and tone examination through out. []] Constitutional Vital Signs, click to edit/add: Last Vital Signs Temp 98.0 F 06/30/25 07:45 Pulse 100 H 06/30/25 07:45 Resp 16 06/30/25 07:45 BP 127/66 06/30/25 07:45 Pulse Ox 95 06/30/25 07:45 O2 Del Method Room Air 06/30/25 07:45 Progress Note: Objective Labs Labs: [facility] 06/30/25 04:56 Sodium 140 Potassium 4.1 Chloride 102 Carbon Dioxide 26.0 BUN 25.0 H Creatinine 1.30 Glucose 114 H Calcium 9.6 Progress Note: A&P Assessment and Plan (1) Cellulitis of leg, right: (2) Painful diabetic neuropathy: (3) Ulcer of right foot limited to breakdown of skin: (4) Ulcer of right lower extremity, limited to breakdown of skin: Plan Cellulitis involving the right leg from the mid pardo down to the toes. 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 I discontinued Zosyn due to increased risk of ATN in combination with the vancomycin Patient was started on ertapenem. Vancomycin dose is handled by pharmacy. Check vancomycin trough level Patient was seen by handbag stitcher who did not recommend any surgical intervention or MRI imaging of the foot at this time. Recommended outpatient follow-up. It is hard to determine the duration of oral and/or IV antibiotic not knowing whether he has osteomyelitis or not based on imaging. Persistent pain and discomfort in the distal metatarsal. MRI rule out abscess and/or osteomyelitis Requested arterial study to be done Monday rule out vascular disease. stated that patient had arterial study at [facility]. I was able to review [facility]'s NARAYAN index and vascular consultation report. Dr. Soni reported that patient does not have any significant peripheral vascular disease. Venous study rule out DVT. No DVT. Pending culture report. Severe pain not responding to Dilaudid 0.25 mg and oxycodone 5 mg. I increased the Dilaudid to 0.5 mg. I added Lyrica 50 mg twice daily. Pain had significantly improved. Continue current regimen. CKD stage III, near baseline. Resumed home Lasix 40 mg daily. Patient is on euvolemic state Discontinue bicarbonate 1300 twice a day due to normal bicarbonate level at this time. His kidney function and the creatinine level is better than ever. Diabetes, continue sliding scale. Resume home acarbose and Januvia Decrease Januvia to 50 mg daily due to CKD. Hypertension Resume home losartan and Coreg. DVT prophylaxis Lovenox subcu. History of CAD and several stents according to patient. Last stent was 4 years ago. Patient is on aspirin daily. No active chest pain or angina. Continue aspirin and beta-eder. Continue losartan Euvolemic state at this time. Cognitive loss. Memory loss. Patient seems to forget details significantly. He does remember his medications. He does not remember the name of his primary care doctor or heart doctor. He is a lot with conflicting on the sequence of event. I suspect that the patient may have vascular dementia. Previous brain imaging showed microvascular disease and atrophy. Chronic medical conditions not listed above, incidental findings seen on labs and imaging. These would need to be addressed. Could be addressed when time and condition are appropriate. Could be addressed in the outpatient setting by PCP collaboration with other needed outpatient providers. 06/29: I discussed his case with his at the bedside. I provided her infor femijermaine about his disease, progress, expectation and treatment plan I answered all of her questions
[2025-06-30] MEDS: VANCOMYCIN HCL 1,750 MG in 0.9 % SODIUM CHLORIDE 500 ML 250 MG IV (12:50)
[2025-06-30 12:51] VITALS: BP 142/88; PULSE 82; TEMP 36.7; O2SAT 94
--- NOTE | 2025-06-30 13:42 | SWNOTE1 ---
Important Message from Medicare reviewed and discussed with patient. Pt. verbalized understanding and signed the form. Original given to patient and copy placed in patient?s chart.
--- NOTE | 2025-06-30 15:04 | SWNOTE1 ---
SW met with pt to discuss dc needs. Pt lives at home with his . Pt does not use any DME at home. Pt voiced he has been in the bed for awhile here at hospital and feels weaker. SW offered to request physical therapy to be added while he is here at the hospital. Pt voiced he does not have a preference at this time. Pt and voiced frustration in regards to pt's toe and being several places and various specialist and nobody has an answer to his toe. Pt voiced he is tried of the testing and not finding out answers. Pt and voiced there children live in [place] and they want him to go down there and get checked out. He is unsure if he would like to do this. At this time pt denies any discharge needs. WHITLEY spoke with case management about physical therapy order.
[2025-06-30] MEDS: ERTAPENEM SODIUM 1 GM in 0.9 % SODIUM CHLORIDE 50 ML IV (16:12)
[2025-06-30 16:13] VITALS: BP 158/76; PULSE 71; TEMP 36.7; O2SAT 93
[2025-06-30] MEDS: ASPIRIN 81 MG TABLET.DR PO (16:41)
[2025-06-30] MEDS: INSULIN ASPART 300 UNIT/3 ML PEN SUBQ ×2 (16:42→22:02)
[2025-06-30 20:00] VITALS: BP 148/86; PULSE 70; TEMP 36.8; O2SAT 95
[2025-06-30] MEDS: LOSARTAN POTASSIUM 50 MG TABLET PO (22:03)
[2025-06-30] MEDS: ENOXAPARIN SODIUM 40 MG/0.4 ML SYRINGE SUBQ (22:03)
[2025-06-30] MEDS: ATORVASTATIN CALCIUM 10 MG TABLET PO (22:03)
[2025-06-30] MEDS: QUETIAPINE FUMARATE 25 MG TABLET 50 MG PO (22:03)
--- NOTE | 2025-06-30 23:57 | PC.NURSE ---
pt walking in halls and in room yelling, god damn it, son of a bitch. repeatedly.
[2025-07-01 03:41] VITALS: BP 141/81; PULSE 84; TEMP 36.5; O2SAT 92
[2025-07-01 05:00] VITALS: BP 162/89; PULSE 88; TEMP 36.5; O2SAT 95
[2025-07-01] MEDS: BUSPIRONE HCL 10 MG TABLET PO ×2 (05:05→21:54)
[2025-07-01 07:56] VITALS: BP 144/89; PULSE 82; TEMP 36.5; O2SAT 93
--- NOTE | 2025-07-01 08:30 | CM.NOTE ---
Rounds made with Dr. Caceres, discussed plan of care with pt and . Discussed need for senior care IV antibiotics. Dr. Caceres would like Dr. Bennett reconsulted after MRI.
--- NOTE | 2025-07-01 08:40 | CM.NOTE ---
CM spoke with Dr. Bennett regarding consult, Dr. Bennett in hospital and will see pt.
--- NOTE | 2025-07-01 09:47 | PM.PN ---
Progress Note: Subjective Subjective Interval history: Patient seen at bedside and had MRI yesterday. He again relates that pain is limited to his third toe and although it is extremely painful from time to time it is his baseline. He has undergone multiple outpatient treatments with pain management, neurosurgery, and currently seeing (podiatry). He relates that he had the hallux amputation roughly 3 years ago and has not had an issue with his big toe since last week when he stubbed his toe. Exam Narrative Exam Narrative: Superficial ulceration on the tip of the right great toe as well as the lateral calf. Secondary skin changes from venous stasis with hyperpigmentation are noted to bilateral legs but much worse on the right leg. Erythema has subsided. No fluctuance. No pain on palpation. Constitutional Vital Signs, click to edit/add: Last Vital Signs Temp 97.7 F 07/01/25 07:56 Pulse 82 07/01/25 07:56 Resp 14 07/01/25 05:00 BP 144/89 H 07/01/25 07:56 Pulse Ox 93 L 07/01/25 07:56 O2 Del Method Room Air 07/01/25 07:56 Progress Note: A&P Assessment and Plan (1) Cellulitis of leg, right: (2) Painful diabetic neuropathy: (3) Ulcer of right foot limited to breakdown of skin: (4) Ulcer of right lower extremity, limited to breakdown of skin: Plan I had a long discussion with patient and at bedside regarding the MRI findings being suspicious for osteomyelitis at the hallux amputation site. I discussed the potential risks and benefits of amputating the hallux versus transmetatarsal amputation. After more than 30 minutes of discussion patient and are not amendable to surgical intervention and would like to pursue local wound care and outpatient consultation with infectious disease. Given he is hemodynamically stable if they decide to undergo the amputation this could be done as an outpatient. I discussed this plan with the hospitalist who plans to discharge the patient on antibiotics. Patient may follow-up with me in 1 to 2 weeks at the wound center. Continue daily dressing changes which should be applied from the forefoot to the popliteal fossa. Weightbearing as tolerated but should elevate his legs as much as possible.
[2025-07-01] MEDS: TIZANIDINE HCL 4 MG TABLET 2 MG PO (09:54)
[2025-07-01] MEDS: SITAGLIPTIN PHOSPHATE 50 MG TABLET PO (09:55)
[2025-07-01] MEDS: BUPROPION HCL 150 MG XL TABLET 24H 300 MG PO (09:56)
[2025-07-01] MEDS: PREGABALIN 50 MG CAPSULE PO (09:56)
[2025-07-01] MEDS: SENNOSIDES/DOCUSATE SODIUM 1 TAB TABLET 2 TAB PO (09:56)
[2025-07-01] MEDS: COLLAGENASE CLOSTRIDIUM HIST. 250 UNITS/GM 30 GRAM TUBE 1 APPLIC TOPICAL (09:59)
[2025-07-01] MEDS: CARVEDILOL 12.5 MG TABLET PO ×2 (10:01→16:23)
--- NOTE | 2025-07-01 10:14 | PM.PN ---
Progress Note: Subjective Subjective Interval history: Patient continues to report pain. Current pain medication including Dilaudid, Lyrica, Percocet are not good enough. No chest pain or palpitation. No abdominal pain. Exam Narrative Exam Narrative: [pt is awake and alert. oriented to place, time and person, morbidly obese HEENT: [place] conjunctiva and NL buccal mucosa Neck: Supple, no tenderness Endocrine: No Thyromegaly. Vascular: No JVD or carotid bruit. Lymphatic: No cervical lymphadenopathy. Chest: CTA no DTP. Heart RRR, no extra sound or murmur. Abd: Soft, no tenderness, no rebound and no rigidity. Increase abd girth therefore clinically I could not exclude the possibility of intra abd mass or organomegaly. LE: No cyanosis or clubbing, no varices or edema. Erythema, mild induration, hyperpigmentation and skin exfoliation as well as superficial ulceration involving the right leg from the mid pardo down to the foot anteriorly, medially, laterally and posteriorly. Patient had his right second toe amputation. He has at least stage II ulceration involving the tip of the right great toe. Mild serous appearance. Induration and tenderness involving the dorsal and plantar aspect of the distal left 1st and 2nd metatarsal 06/29: Erythema, tenderness and swelling in the pardo laterally and posteriorly had improved since yesterday. 06/30: Similar appearance today. Tenderness over the distal metatarsal. Patient has a history of second toe amputated. 07/01: No significant change in the appearance of right leg Neuro: A A O. Nl speech, comprehension and attention. Nl and symetrical motor and tone examination through out. []] Constitutional Vital Signs, click to edit/add: Last Vital Signs Temp 97.7 F 07/01/25 07:56 Pulse 82 07/01/25 07:56 Resp 14 07/01/25 05:00 BP 144/89 H 07/01/25 07:56 Pulse Ox 93 L 07/01/25 07:56 O2 Del Method Room Air 07/01/25 07:56 Progress Note: A&P Assessment and Plan (1) Cellulitis of leg, right: (2) Painful diabetic neuropathy: (3) Ulcer of right foot limited to breakdown of skin: (4) Ulcer of right lower extremity, limited to breakdown of skin: (5) Osteomyelitis: Plan Cellulitis involving the right leg from the mid pardo down to the toes. Infected ulcer involving the toe with a probable osteo myelitis MRI of the foot confirmed evidence of osteomyelitis Continue vancomycin and ertapenem. Vancomycin dose is handled by pharmacy. Check vancomycin trough level Patient was seen by electrical supervisor. Dr. Bennett gave the patient and his option of a metatarsal amputation. Patient declined at this time. He wants to give it a shot with antibiotic and wound care. Requested arterial study to be done Monday rule out vascular disease. stated that patient had arterial study at [facility]. I was able to review [facility]'s NARAYAN index and vascular consultation report. Dr. Soni reported that patient does not have any significant peripheral vascular disease. Venous study rule out DVT. No DVT. Plan is to discharge patient home on oral Bactrim follow-up with the podiatry and infectious disease to see how he will progress over the next 2 to 3 weeks before amputation. Severe pain not responding to Dilaudid 0.25 mg and oxycodone 5 mg. I increased his Lyrica up to 75 5 twice daily. I discontinue Dilaudid. I started him on morphine 2 mg every 4 hours as needed severe pain. I started him on Toradol. CKD stage III, near baseline. Resumed home Lasix 40 mg daily. Patient is on euvolemic state Discontinue bicarbonate 1300 twice a day due to normal bicarbonate level at this time. His kidney function and the creatinine level is better than ever. Diabetes, continue sliding scale. Resume home acarbose and Januvia Decrease Januvia to 50 mg daily due to CKD. Hypertension Resume home losartan and Coreg. DVT prophylaxis Lovenox subcu. History of CAD and several stents according to patient. Last stent was 4 years ago. Patient is on aspirin daily. No active chest pain or angina. Continue aspirin and beta-eder. Continue losartan Euvolemic state at this time. Cognitive loss. Memory loss. Patient seems to forget details significantly. He does remember his medications. He does not remember the name of his primary care doctor or heart doctor. He is a lot with conflicting on the sequence of event. I suspect that the patient may have vascular dementia. Previous brain imaging showed microvascular disease and atrophy. Chronic medical conditions not listed above, incidental findings seen on labs and imaging. These would need to be addressed. Could be addressed when time and condition are appropriate. Could be addressed in the outpatient setting by PCP collaboration with other needed outpatient providers. 06/29 and 07/01: I discussed his case with his at the bedside. I provided her information about his disease, progress, expectation and treatment plan I answered all of her questions
[2025-07-01] MEDS: KETOROLAC TROMETHAMINE 30 MG/ML VIAL IVP (10:57)
[2025-07-01] MEDS: INSULIN ASPART 300 UNIT/3 ML PEN SUBQ ×2 (11:16→21:54)
[2025-07-01] MEDS: VANCOMYCIN HCL 1,750 MG in 0.9 % SODIUM CHLORIDE 500 ML 250 MG IV (11:20)
[2025-07-01] MEDS: 0.9 % SODIUM CHLORIDE 250 ML 10 ML IV (11:21)
[2025-07-01 12:00] VITALS: BP 135/74; PULSE 68; TEMP 36.6; O2SAT 91
[2025-07-01] MEDS: ASPIRIN 81 MG TABLET.DR PO (16:23)
[2025-07-01] MEDS: ERTAPENEM SODIUM 1 GM in 0.9 % SODIUM CHLORIDE 50 ML IV (16:23)
[2025-07-01 16:32] VITALS: BP 170/98; PULSE 61; TEMP 36.3; O2SAT 96
[2025-07-01] MEDS: KETOROLAC TROMETHAMINE 30 MG/ML VIAL 15 MG IVP (17:45)
[2025-07-01 19:46] VITALS: BP 146/84; PULSE 81; TEMP 36.5; O2SAT 96
[2025-07-01] MEDS: ENOXAPARIN SODIUM 40 MG/0.4 ML SYRINGE SUBQ (21:53)
[2025-07-01] MEDS: PREGABALIN 50 MG CAPSULE 75 MG PO (21:54)
[2025-07-01] MEDS: ATORVASTATIN CALCIUM 10 MG TABLET PO (21:54)
[2025-07-01] MEDS: LOSARTAN POTASSIUM 50 MG TABLET PO (21:55)
[2025-07-01] MEDS: OXYCODONE HCL/ACETAMINOPHEN 5MG/325MG 2 TAB PO (21:55)
[2025-07-01] MEDS: QUETIAPINE FUMARATE 25 MG TABLET 50 MG PO (21:55)
[2025-07-02 03:09] VITALS: BP 149/75; PULSE 78; TEMP 36.3; O2SAT 94
[2025-07-02 05:35] LABS: Hematocrit 39.1 % (42.0-54.0); Hemoglobin 12.5 g/dL (14.0-18.0); Mean Corpuscular HGB Conc 32.0 g/dL (29.9-35.2); Mean Corpuscular Hemoglobin 27.3 pg (25.9-34.0); Mean Corpuscular Volume 85.4 fL (80.0-94.0); Platelet Count 214 10^3/uL (150-450); Red Blood Count 4.58 10^6/uL (4.70-6.10); White Blood Count 6.8 10^3/uL (4.0-11.0)
[2025-07-02 05:52] LABS: Anion Gap 11.4; Blood Urea Nitrogen 35.0 mg/dL (7.0-18.0); Calcium 9.0 mg/dL (8.5-10.1); Carbon Dioxide 26.4 mmol/L (21.0-32.0); Chloride 104 mmol/L (98-107); Estimated GFR (African America 53 (>=60 mL/min/1.73m^2); Estimated GFR (Non-African Ame 44 (>=60 mL/min/1.73m^2); Glucose 143 mg/dL (74-106); Potassium 3.8 mmol/L (3.5-5.1); Sodium 138 mmol/L (136-145)
--- NOTE | 2025-07-02 08:00 | CM.NOTE ---
Preliminary wound report given to Dr. Caceres.
[2025-07-02 09:29] VITALS: BP 167/86; PULSE 90; TEMP 36.4; O2SAT 93
[2025-07-02] MEDS: CARVEDILOL 12.5 MG TABLET PO ×2 (09:31→16:57)
[2025-07-02] MEDS: SENNOSIDES/DOCUSATE SODIUM 1 TAB TABLET 2 TAB PO (09:32)
[2025-07-02] MEDS: BUPROPION HCL 150 MG XL TABLET 24H 300 MG PO (09:32)
[2025-07-02] MEDS: PREGABALIN 75 MG CAPSULE PO ×2 (09:32→21:27)
[2025-07-02] MEDS: COLLAGENASE CLOSTRIDIUM HIST. 250 UNITS/GM 30 GRAM TUBE 1 APPLIC TOPICAL (09:32)
[2025-07-02] MEDS: SITAGLIPTIN PHOSPHATE 50 MG TABLET PO (09:32)
[2025-07-02] MEDS: MORPHINE SULFATE 2 MG/ML SYRINGE IV (09:36)
[2025-07-02] MEDS: OXYCODONE HCL/ACETAMINOPHEN 5MG/325MG 2 TAB PO ×2 (11:09→21:26)
--- NOTE | 2025-07-02 11:33 | P.PN_ITS ---
Progress Note: Subjective Subjective Interval history: Patient continues to report pain. Less intense than before current pain medication including Dilaudid, Lyrica, Percocet are not good enough. No chest pain or palpitation. No abdominal pain. Exam Narrative Exam Narrative: [pt is awake and alert. oriented to place, time and person, morbidly obese HEENT: [place] conjunctiva and NL buccal mucosa Neck: Supple, no tenderness Endocrine: No Thyromegaly. Vascular: No JVD or carotid bruit. Lymphatic: No cervical lymphadenopathy. Chest: CTA no DTP. Heart RRR, no extra sound or murmur. Abd: Soft, no tenderness, no rebound and no rigidity. Increase abd girth therefore clinically I could not exclude the possibility of intra abd mass or organomegaly. LE: No cyanosis or clubbing, no varices or edema. Erythema, mild induration, hyperpigmentation and skin exfoliation as well as superficial ulceration involving the right leg from the mid pardo down to the foot anteriorly, medially, laterally and posteriorly. Patient had his right second toe amputation. He has at least stage II ulceration involving the tip of the right great toe. Mild serous appearance. Induration and tenderness involving the dorsal and plantar aspect of the distal left 1st and 2nd metatarsal 06/29: Erythema, tenderness and swelling in the pardo laterally and posteriorly had improved since yesterday. 06/30: Similar appearance today. Tenderness over the distal metatarsal. Patient has a history of second toe amputated. 07/01: No significant change in the appearance of right leg 07/02: Resolution of the tenderness and swelling involving the anterior and lateral aspect of the right pardo Neuro: A A O. Nl speech, comprehension and attention. Nl and symetrical motor and tone examination through out. []] Constitutional Vital Signs, click to edit/add: Last Vital Signs Temp 97.6 F 07/02/25 09:29 Pulse 90 07/02/25 09:29 Resp 18 07/02/25 09:29 BP 167/86 H 07/02/25 09:29 Pulse Ox 93 L 07/02/25 09:29 O2 Del Method Room Air 07/02/25 09:29 Progress Note: Objective Labs Labs: Short CBC 07/02/25 Range/Units 05:14 WBC 6.8 (4.0-11.0) 10^3/uL Hgb 12.5 L (14.0-18.0) g/dL Hct 39.1 L (42.0-54.0) % Plt Count 214 (150-450) 10^3/uL BMP 07/02/25 05:14 Sodium 138 Potassium 3.8 Chloride 104 Carbon Dioxide 26.4 BUN 35.0 H Creatinine 1.56 H Glucose 143 H Calcium 9.0 Progress Note: A&P Assessment and Plan (1) Cellulitis of leg, right: (2) Painful diabetic neuropathy: (3) Ulcer of right foot limited to breakdown of skin: (4) Ulcer of right lower extremity, limited to breakdown of skin: (5) Osteomyelitis: Plan Cellulitis involving the right leg from the mid pardo down to the toes. Infected ulcer involving the toe with a probable osteo myelitis MRI of the foot confirmed evidence of osteomyelitis No evidence of systemic infection Continue vancomycin and ertapenem. Vancomycin dose is handled by pharmacy. Check vancomycin trough level Patient was seen by inside sales account executive. Dr. Bennett gave the patient and his option of a metatarsal amputation. Patient declined at this time. He wants to give it a shot with antibiotic and wound care. Requested arterial study to be done Monday rule out vascular disease. stated that patient had arterial study at [facility]. I was able to review [facility]'s NARAYAN index and vascular consultation report. Dr. Soni reported that patient does not have any significant peripheral vascular disease. Venous study rule out DVT. No DVT. Blood cultures negative. Wound culture is negative Convert antibiotic to oral doxycycline on discharge. Plan is to discharge patient home on oral Bactrim follow-up with the podiatry and infectious disease to see how he will progress over the next 2 to 3 weeks before amputation. Severe pain not responding to Dilaudid 0.25 mg and oxycodone 5 mg. I increased his Lyrica up to 75 5 twice daily. I discontinue Dilaudid. I started him on morphine 2 mg every 4 hours as needed severe pain. I started him on Toradol. CKD stage III, near baseline. Resumed home Lasix 40 mg daily. Patient is on euvolemic state Discontinue bicarbonate 1300 twice a day due to normal bicarbonate level at this time. His kidney function and the creatinine level is better than ever. Diabetes, continue sliding scale. Resume home acarbose and Januvia Decrease Januvia to 50 mg daily due to CKD. Hypertension Resume home losartan and Coreg. DVT prophylaxis Lovenox subcu. History of CAD and several stents according to patient. Last stent was 4 years ago. Patient is on aspirin daily. No active chest pain or angina. Continue aspirin and beta-eder. Continue losartan Euvolemic state at this time. Cognitive loss. Memory loss. Patient seems to forget details significantly. He does remember his medications. He does not remember the name of his primary care doctor or heart doctor. He is a lot with conflicting on the sequence of event. I suspect that the patient may have vascular dementia. Previous brain imaging showed microvascular disease and atrophy. Chronic medical conditions not listed above, incidental findings seen on labs and imaging. These would need to be addressed. Could be addressed when time and condition are appropriate. Could be addressed in the outpatient setting by PCP collaboration with other needed outpatient providers. 06/29 and 07/01 and 07/02: I discussed his case with his at the bedside. I provided her information about his disease, progress, expectation and treatment plan I answered all of her questions
--- NOTE | 2025-07-02 11:35 | PM.EN ---
Event Note Event Note: Despite spending 20 minutes in the room with the patient and his in collaboration with nurse Lerma explaining to patient and his in simple terms prognosis, expectation, trajectory and treatment plan, answering all of their questions daily, patient's claiming today that no one is telling them what is going. I also note that Dr. Bennett had spent at least 30 minutes yesterday with the patient and his explaining his foot situation and different treatment options. I spent additional 25 minutes today explaining to patient and his in layman's terms treatment plan including a blood test, medications, and needed outpatient follow-up and all other related issues. Still at the end of the visit, patient and his continue to state that they have not been notified about plan of care and treatment plan.
[2025-07-02] MEDS: DOXYCYCLINE MONOHYDRATE 100 MG CAPSULE PO ×2 (12:52→21:26)
[2025-07-02 12:58] VITALS: BP 130/80; PULSE 75; TEMP 36.5; O2SAT 91
[2025-07-02] MEDS: BUSPIRONE HCL 10 MG TABLET PO ×2 (14:18→21:27)
--- NOTE | 2025-07-02 16:18 | SWNOTE1 ---
WHITLEY spoke with pt's in waiting area this morning. Pt's did appreciate the care the doctor is providing. She did voice concerns about the basic care her has not been receiving. She stated his sheets have not been changed since he has been here. She had to put a dirty gown back on him as the other did not fit and he had to put a blanket on his back to keep himself warm. She felt the nurses were coming in and stating they would be back, but did not return for 2 hours. They did not refill his water, he had to ask for water to be refilled. She stated both legs have sores and initially they were wrapping them, but they are not anymore. She stated Monday there was an aide and she did really well and stopped to check on pt. She voiced her children are all in the health care field and they want to make sure he is getting the basic care needed from hospital. WHITLEY did offer support and let her know SW will speak to the director of the floor. She voiced appreciation. She also mentioned that pt does need therapy while he is here as well. WHITLEY did let her know that we did offer this to pt, but he had refused to have a consult. WHITLEY spoke with [place], Director of MED/SURGE, about pt's concerns.
[2025-07-02] MEDS: 0.9 % SODIUM CHLORIDE 250 ML 10 ML IV (16:56)
[2025-07-02] MEDS: ERTAPENEM SODIUM 1 GM in 0.9 % SODIUM CHLORIDE 50 ML IV (16:56)
[2025-07-02] MEDS: ASPIRIN 81 MG TABLET.DR PO (16:57)
--- NOTE | 2025-07-02 16:58 | DIETREC ---
Recommend 2000 kcal CCD diet.
[2025-07-02 20:00] VITALS: BP 148/79; PULSE 68; TEMP 36.8; O2SAT 97
[2025-07-02] MEDS: ENOXAPARIN SODIUM 40 MG/0.4 ML SYRINGE SUBQ (21:26)
[2025-07-02] MEDS: QUETIAPINE FUMARATE 25 MG TABLET 50 MG PO (21:27)
[2025-07-02] MEDS: INSULIN ASPART 300 UNIT/3 ML PEN SUBQ (21:27)
[2025-07-02] MEDS: ATORVASTATIN CALCIUM 10 MG TABLET PO (21:27)
[2025-07-02] MEDS: LOSARTAN POTASSIUM 50 MG TABLET PO (21:27)
--- NOTE | 2025-07-02 23:06 | PC.NURSE ---
patient was given a shower, dressing change was done. patient tolerated well. Used a tefla on left leg, 4x4 folded on toe and 4x4 doubled on right leg. Kerlex was wrapped around leg and esteban wrap was put over top to hold in place.
[2025-07-02 23:47] VITALS: BP 145/73; PULSE 71; TEMP 36.6; O2SAT 94
[2025-07-03 03:33] VITALS: BP 167/75; PULSE 70; TEMP 36.3; O2SAT 96
[2025-07-03 05:23] VITALS: O2SAT 91
[2025-07-03] MEDS: BUSPIRONE HCL 10 MG TABLET PO ×2 (05:47→14:31)
[2025-07-03] MEDS: OXYCODONE HCL/ACETAMINOPHEN 5MG/325MG 2 TAB PO (05:50)
[2025-07-03] MEDS: MORPHINE SULFATE 2 MG/ML SYRINGE IV (07:56)
[2025-07-03 07:59] VITALS: BP 160/73; PULSE 82; TEMP 36.6; O2SAT 92
--- NOTE | 2025-07-03 09:00 | CM.NOTE ---
Rounds made with Dr. Caceres, discussed with pt plan of care. Pt continues with extreme pain to toe uncontrolled with IV narcotic. Discussed with pt surgical interventions, pt still not in agreement with surgical intervention. Dr. Caceres discussed with pt about transfer to [facility] to see podiatry at [facility] and infectious disease. Pt in agreement with transfer. Dr. Caceres will come back to discuss with pt's when she arrives.
[2025-07-03] MEDS: CARVEDILOL 12.5 MG TABLET PO (09:02)
[2025-07-03] MEDS: DOXYCYCLINE MONOHYDRATE 100 MG CAPSULE PO (09:02)
[2025-07-03] MEDS: BUPROPION HCL 150 MG XL TABLET 24H 300 MG PO (09:02)
[2025-07-03] MEDS: SENNOSIDES/DOCUSATE SODIUM 1 TAB TABLET 2 TAB PO (09:02)
[2025-07-03] MEDS: SITAGLIPTIN PHOSPHATE 50 MG TABLET PO (09:02)
[2025-07-03] MEDS: PREGABALIN 75 MG CAPSULE PO (09:02)
[2025-07-03] MEDS: COLLAGENASE CLOSTRIDIUM HIST. 250 UNITS/GM 30 GRAM TUBE 1 APPLIC TOPICAL (09:02)
[2025-07-03 10:07] VITALS: O2SAT 93
--- NOTE | 2025-07-03 11:25 | CM.NOTE ---
Called [facility] bed coordinator regarding initiation of pt's transfer to [facility].
--- NOTE | 2025-07-03 11:48 | P.DS_ITS ---
DS: Providers Provider Date of admission: 06/27/25 16:21 Primary care physician: KENDRA WHITLOCK Consults: 06/27/25 17:57 Consult to Podiatry Routine Consulting Provider: Homero Bennett Reason for consultation: Foot infection 07/02/25 09:18 Physical Therapy Eval and Treat Routine Reason for consultation: Weakness DS: Diagnosis Discharge Diagnosis (1) Cellulitis of leg, right: (2) Painful diabetic neuropathy: (3) Ulcer of right foot limited to breakdown of skin: (4) Ulcer of right lower extremity, limited to breakdown of skin: (5) Osteomyelitis: Plan As listed above, below and others that are not listed DS: Summary Hospital Course Hospital Course: Mr. Alcazar is a 74-year-old gentleman who came in with pain, swelling and tenderness involving the right foot and was found to have the following: Cellulitis involving the right leg from the mid pardo down to the toes. Infected ulcer involving the great toe with a probable osteo myelitis seen on MRI MRI of the foot confirmed evidence of osteomyelitis changes No evidence of systemic infection Continue vancomycin and ertapenem. Vancomycin dose is handled by pharmacy. Check vancomycin trough level Patient was seen by paper and prints restorer. Dr. Bennett gave the patient and his option of a metatarsal amputation. Patient declined at this time. He wants to give it a shot with antibiotic and wound care. Requested arterial study to be done Monday rule out vascular disease. stated that patient had arterial study at [facility]. I was able to review [facility]'s NARAYAN index and vascular consultation report. Dr. Soni reported that patient does not have any significant peripheral vascular disease. Venous study rule out DVT. No DVT. Blood cultures negative. Wound culture is negative Patient and his continues to express dissatisfaction with the treatment plan. I offered to transfer him to [facility] for second podiatry opinion and also for patient to be seen by infectious disease. Patient and his welcomed the idea of having a second opinion so they can make final decision to proceed with metatarsal amputation and/or antibiotic. Severe pain not responding to Dilaudid 0.25 mg and oxycodone 5 mg. I increased his Lyrica up to 75 5 twice daily. I discontinue Dilaudid. I started him on morphine 2 mg every 4 hours as needed severe pain. I started him on Toradol. CKD stage III, near baseline. Resumed home Lasix 40 mg daily. Patient is on euvolemic state Discontinue bicarbonate 1300 twice a day due to normal bicarbonate level at this time. His kidney function and the creatinine level is better than ever. Diabetes, continue sliding scale. Resume home acarbose and Januvia Decrease Januvia to 50 mg daily due to CKD. Hypertension Resume home losartan and Coreg. DVT prophylaxis Lovenox subcu. History of CAD and several stents according to patient. Last stent was 4 years ago. Patient is on aspirin daily. No active chest pain or angina. Continue aspirin and beta-eder. Continue losartan Euvolemic state at this time. Cognitive loss. Memory loss. Patient seems to forget details significantly. He does remember his medications. He does not remember the name of his primary care doctor or heart doctor. He is a lot with conflicting on the sequence of event. I suspect that the patient may have vascular dementia. Previous brain imaging showed microvascular disease and atrophy. Chronic medical conditions not listed above, incidental findings seen on labs and imaging. These would need to be addressed. Could be addressed when time and condition are appropriate. Could be addressed in the outpatient setting by PCP collaboration with other needed outpatient providers. 06/29 and 07/01 and 07/02 and 07/03: I discussed his case with his at the bedside. I provided her information about his disease, progress, expectation and treatment plan I answered all of her questions I discussed this case with my colleague Dr. Alonzo [facility]. He accepted to admit patient to [facility] to facilitate second opinion podiatry consultation and infectious disease input. Time Spent with Patient Time attestation: Total time spent providing and/or coordinating discharge services: Time spent: greater than 30 minutes Exam Constitutional Vital Signs, click to edit/add: Last Vital Signs Temp 97.9 F 07/03/25 07:59 Pulse 82 07/03/25 07:59 Resp 18 07/03/25 07:59 BP 160/73 H 07/03/25 07:59 Pulse Ox 93 L 07/03/25 10:07 O2 Del Method Room Air 07/03/25 10:07 DS: Data Data Completed and Pending Labs on day of discharge: Labs from last 24 hours 07/03/25 07/03/25 07/02/25 11:11 07:56 20:53 POC Glucose 139 H 106 156 H 07/02/25 16:51 POC Glucose 124 H Discharge Plan Discharge Disposition: [facility] Condition: Fair
[2025-07-03] MEDS: INSULIN ASPART 300 UNIT/3 ML PEN SUBQ (11:57)
--- NOTE | 2025-07-03 12:19 | SWNOTE1 ---
Pt is being transferred to higher level of care.
--- NOTE | 2025-07-03 12:55 | CM.NOTE ---
[facility] called with bed # 3 tower rm [id number] and call report to [phone] and fax facesheet to [phone]. Updated RN and Chelle machine shorthand teacher.
[2025-07-03 13:30] VITALS: BP 157/80; PULSE 74; TEMP 36.7; O2SAT 95
--- NOTE | 2025-07-03 14:19 | PC.NURSE ---
report given to taras at [facility], all questions were answered
== END 2025-07-03 15:27 | disposition short-term general hospital (02) | DRG 638 ==
LOC: ER 15:29 → MS 16:30
PROVIDERS: Admitting Provider Internal Medicine; Emergency Provider Emergency Medicine; PCP Nurse Practitioner; Visit Provider Internal Medicine
DX: E11.69 Type 2 diabetes mellitus with other specified complication (principal); L03.115 Cellulitis of right lower limb; L97.911 Non-pressure chronic ulcer of unspecified part of right lower leg limited to breakdown of skin; M86.8X7 Other osteomyelitis, ankle and foot; E11.621 Type 2 diabetes mellitus with foot ulcer; E11.622 Type 2 diabetes mellitus with other skin ulcer; L97.511 Non-pressure chronic ulcer of other part of right foot limited to breakdown of skin; Z79.4 Long term (current) use of insulin; Z79.84 Long term (current) use of oral hypoglycemic drugs; E11.40 Type 2 diabetes mellitus with diabetic neuropathy, unspecified; Z87.442 Personal history of urinary calculi; G47.33 Obstructive sleep apnea (adult) (pediatric); N40.0 Benign prostatic hyperplasia without lower urinary tract symptoms; Z89.421 Acquired absence of other right toe(s); Z95.5 Presence of coronary angioplasty implant and graft; Z79.82 Long term (current) use of aspirin; Z79.899 Other long term (current) drug therapy; E66.01 Morbid (severe) obesity due to excess calories; N18.30 Chronic kidney disease, stage 3 unspecified; E11.22 Type 2 diabetes mellitus with diabetic chronic kidney disease; I12.9 Hypertensive chronic kidney disease with stage 1 through stage 4 chronic kidney disease, or unspecified chronic kidney disease; I25.10 Atherosclerotic heart disease of native coronary artery without angina pectoris; R41.3 Other amnesia; K59.00 Constipation, unspecified; M79.671 Pain in right foot; I87.8 Other specified disorders of veins; Z68.39 Body mass index [BMI] 39.0-39.9, adult
CPT/HCPCS: 36415; 73590; 73630; 73718; 80048; 80053; 80061; 80202; 82948; 83036; 83605; 85025; 85027; 85652; 86140; 87040; 87070; 87075; 93005; 93971; 94761; 96365; 96366; 96368; 96375; 96376; 97162; 97530; 99285; J1171; J1335; J1650; J1885; J2270; J2543; J3373

== ENCOUNTER 2025-07-21 15:17 | Outpatient (OUT) | payer MEDICARE, OTHER, SELFPAY ==
--- NOTE | 2025-07-21 15:25 | XR_ITS ---
The [address] [address] Patient Name: LUISITO WHITMORE MRN: [id number] date: 1950 Sex: M Assigned Patient Location: [facility] Current Patient Location: [facility] Accession/Order Number: [id number] Exam Date: 07/21/2025 15:27 Report Date: 07/21/2025 20:46 At the request of: KENDRA WHITLOCK Procedure: XR cervical spine 2-3V XR cervical spine 2-3V 07/21/2025 3:45 PM SIGNS AND SYMPTOMS: ^Repeated Falls, Cervicalgia PROTOCOLS: 4 views of the cervical spine COMPARISON: None FINDINGS: The bones are in anatomic alignment. There is preservation of the vertebral body heights. Moderate disc height loss is noted with anterior osteophyte formation and facet hypertrophy throughout the cervical spine. Laxity joint is preserved. There is no fracture or destructive lesion. XR/XR cervical spine 2-3V IMPRESSION: No fracture or subluxation. Moderate multilevel degenerative changes noted as above. Impression dictated by: Shane Chavis M.D. 07/21/2025 8:46 PM Dictation Location: [place] [address] Electronically authenticated by: [id number] Date: 07/21/2025 20:46
--- OUTSIDE RECORDS SUMMARY | 2025-07-21 15:26 | XMS_ITS | CCD ---
Author Organization [facility] Care Team Providers Care 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 Name Role Phone Claudioaminta Morgan Unavailable Aldo [...] ., DR SCARLET [place] Primary [facility] Unavailable ESTELLA, ROLANDO Attending Unavailable ROLANDO SORIA Admitting Unavailable ROLANDO [...] Soni Unavailable MD Daniel Everett Attending Provider [phone] MD Scarlet Johnson Primary Care Provider MD Eligio Soni Attending Provider [phone] MD Scarlet Johnson Primary Care Provider [phone] MD Daniel Everett Attending Provider [phone] Bubba SCHUSTER, Andrius Unavailable Haider Hickman Attending Unavailable Haider Hickman Admitting Unavailable Haider Hickman MD Primary Care Provider Haider Hickman MD Primary Care Provider MORGAN TRINIDAD Attending Unavailable HAIDER HICKMAN Primary Care Unavailable MIJATOPHILIPP, DESIMIR Referring Unavailable HAIDER HICKMAN Primary Care Unavailable MEKHAIMary, HERBERTH A Referring Unavailable MIJATOPHILIPP, DESIMIR Attending Unavailable HERBERTH ARAUJO A Attending Unavailable FRANCOISE SINGLETARY Attending Unavailable HAIDER HICKMAN Primary Care Unavailable MIJATOVIC, DESIMIR Referring Unavailable MIJATOVIC, DESIMIR Attending Unavailable HERBERTH ARAUJO A Attending Unavailable VAN, HERBERTH A Admitting Unavailable MORGAN TRINIDAD Referring Unavailable HAIDER HICKMAN Primary Care Unavailable BRITNEY HYDE Attending Unavailable Haider Hickman Attending Unavailable Haider Hickman Admitting Unavailable Haider Hickman. Attending Unavailable Ross, Haider E. Attending Unavailable [...] Andrius Vytautmariann Attending Unavailable Giedraitis , Andrius Vlluvia Attending Unavailable Haider Hickman Referring Unavailable Haider Hickman Admitting Unavailable Haider Hickman Attending Unavailable Haider Hickman Attending Unavailable Haider Hickman Attending Unavailable Haider Hickman Attending Unavailable Deo Hickman Primary Care Provider [phone] Marce Bowen APRN Attending Provider Eligio Soni MD Attending Provider [phone] Deo Hickman Primary Care Provider Marce Bowen APRN Attending Provider Eligio Soni MD Attending Provider [phone] Aldo Middleton APRN Attending Provider Brian PhD, Kaia Unavailable Unavailab adin Torres PhD, Kaia Unavailable Unavailab Nanette Parker Attending Unavailable KarlNanette veloz Admitting Unavailable Kenmeghan PhD, Kaia Unavailable Unavailab MARY Norwood Attending Unavailable MARKUS, MARY Attending Unavailable MARKUS, MARY Attending Unavailable ESSENCE LAM Attending Unavailable ESSENCE LMA Attending Unavailable ELAINE FISHER Attending Unavailable Brian PhD, Kaia Attending Unavailab le Kristofer, Haider E. Admitting Unavailable Ross, Haider E. Attending Unavailable Karl, Nanette L Admitting Unavailable Tomi Maria Attending Unavaila ble Karl, Nanette Hernandez Attending Unavailable Kristofer, Haider E. Admitting Unavailable Ross, Haider E. Attending Unavailable Kristofer, Haider E. Referring Unavailable Deo Hickman Primary Care Provider [phone] Rubi SCHUSTER, Neo Admit Provider Rubi SCHUSTER, Neo Other Provider Khai Vega MD Other Provider Jeff RUFFIN, Bassam Nur Other Provider Rox SCHUSTER, Tereso Stoner Other Provider Shiraz DRY WALL INSTALLER-C, Nat Hemphill Attending Provider Brian PhD, Kaia Unavailable Unavailab Araceli Patel Attending Unavailable COOKAraceli Attending Unavailable Karl, Nanette L Admitting Unavailable Karl, Nanette L Attending Unavailable Karl, Nanette L Attending Unavailable Karl, Nanette L Attending Unavailable Karl, Nanette L Attending Unavailable Karl, Nanette L Attending Unavailable Karl, Nanette L Attending Unavailable Karl, Nanette L Attending Unavailable Karl, Nanette L Attending Unavailable Karl, Nanette L Attending Unavailable Karl, Nanette L Attending Unavailable Ross, Haider E. Admitting Unavailable Ross, Haider E. Attending Unavailable Araceli BERMUDEZ Attending Unavailable Ross, Haider E. Attending Unavailable Ross, Haider E. Attending Unavailable Ross, Haider E. Attending Unavailable Ross, Haider E. Attending Unavailable Ross, Haider E. Attending Unavailable Ross, Haider E. Admitting Unavailable Ross, Haider E. Attending Unavailable Turovskaya, Marce Admitting Unavailable Andrés, Marce Attending Unavailable Deo Hickman H Primary Care Unavailable Eligio Soni Admitting Unavailabl Eligio Benavides Attending UnavailDeo Boo Primary Care Unavailable Seffo, Firas Admitting Unavailable Secontreraso, Neo Attending Unavailable Khai Vega Unavailable Kristofer, Deo Bell Primary Care Unavailable Bassam Aguilar Consulting Unavailable Tereso Gramajo Consulting Unavailable BASSAM AGUILAR Attending Unavailable MARIA DEL ROSARIO, CARA Nur Attending Unavailable TIMMIS, DAVID H Attending Unavailable CATALINA, MORGAN Blank Attending Unavailable TIMMIS, DAVID H Referring Unavailable CATALINA, MORGAN Blank Attending Unavailable TIMMIS, DAVID H Referring Unavailable CATALINA, MORGAN Blank Attending Unavailable TIMMIS, DAVID H Referring Unavailable TIMMIS, DAVID H Attending Unavailable , GABRIELA H Attending Unavailable CATALINA, MORGAN Blank Attending Unavailable TIMMIS, DAVID H Referring Unavailable CATALINA, MORGAN Blank Attending Unavailable TIMMIS, DAVID H Referring Unavailable , GABRIELA H Attending Unavailable BROWN, BASSAM Nur Attending Unavailable MARIA DEL ROSARIO, CARA Nur Attending Unavailable JEFF, BASSAM Nur Attending Unavailable DANIEL, ARLEN Nur Attending Unavailable TUTU, SHYAM Stoner Attending Unavailable DOLKILO, SHYAM Stoner Attending Unavailable KHAI HEARD Attending Unavailable DANIEL, ARLEN Nur Referring Unavailable BASSAM AGUILAR Attending Unavailable MATTHEW MAY Attending Unavailable HAIDER HICKMAN Referring Unavailable JEFF, BASSAM Nur Attending Unavailable JEFF, BASSAM Nur Attending Unavailable Karl, Nanette Hernandez Admitting Unavailable Karl, Nanette Hernandez Attending Unavailable Karl, Nanette Hernandez Attending Unavailable Allergies Allergy Classification Reported Allergen(s) Allergy Type Date of Onset Reaction(s) Facility (20 sources) Cefuroxime; Translations: [cefuroxime] Drug Allergy 06-09-20 Unknown [facility] (20 sources) celecoxib; Translations: [CELECOXIB] Drug Allergy 06-09-20 Unknown, Unknown Reaction [facility] (20 sources) Diflunisal; Translations: [DIFLUNISAL] Drug Allergy 06-09-20 Unknown, Unknown Reaction [facility] (20 sources) dulaglutide; Translations: [DULAGLUTIDE] Drug Allergy 05-18-20 23 Unknown, g/i [facility] (20 sources) Ibuprofen Drug Allergy Unknown [facility] Other (20 sources) liraglutide; Translations: [LIRAGLUTIDE] Drug Allergy 02-17-20 23 stomach upset [facility] (20 sources) metFORMIN; Translations: [metFORMIN] Drug Allergy 06-09-20 21 stomach upset [facility] (20 sources) Naproxen; Translations: [NAPROXEN] Drug Allergy 06-09-20 21 Unknown [facility] (20 sources) Sulindac; Translations: [Clinoril] Drug Allergy 07-10-20 15 Unknown [facility] (1 source) Cefuroxime Drug Allergy 07-13-20 16 [facility] (10 sources) celecoxib; Translations: [CeleBREX] Drug Allergy 07-10-20 15 [facility] (10 sources) liraglutide; Translations: [Victoza] Drug Allergy [facility] (1 source) metFORMIN Drug Allergy 06-15-20 17 [facility] (10 sources) Naproxen; Translations: [Naprosyn] Drug Allergy 07-10-20 15 [facility] (3 sources) NSAIDs; Translations: [NSAIDS (NON-STEROIDAL ANTI-INFLAMMATORY DRUG)] Drug allergy (disorder) 07-10-20 15 [facility] (10 sources) Povidone-Iodine; Translations: [Dolobid] Drug Allergy 07-10-20 15 [facility] (20 sources) Cephalosporins (Antibiotic); Translations: [cephalosporins] Propensity to adverse reactions 05-29-20 18 Unknown Reaction [facility] (20 sources) Ibuprofen; Translations: [ibuprofen] Drug Allergy 09-11-20 23 Unknown [facility] (20 sources) Sulindac; Translations: [SULINDAC] Drug Allergy 06-09-20 21 Unknown [facility] (12 sources) Non-steroidal anti-inflammatory agent Drug Intolerance 02-05-20 24 GI Upset [facility] (20 sources) celecoxib Drug Allergy 05-18-20 23 Unknown [facility] (20 sources) Diflunisal Drug Allergy 06-09-20 21 Unknown [facility] (20 sources) dulaglutide Drug Allergy 05-18-20 23 Unknown [facility] (20 sources) liraglutide Drug Allergy 05-18-20 23 Unknown [facility] (20 sources) metFORMIN Drug Allergy 05-18-20 23 Unknown [facility] (20 sources) rofecoxib; Translations: [ROFECOXIB] Drug Allergy 06-09-20 Unknown [facility] Healthcare (20 sources) Non-steroidal anti-inflammatory agent; Translations: [NSAIDs] Drug Allergy 07-23-20 Other [facility] Healthcare (9 sources) Cefuroxime; Translations: [Cefuroxime Axetil] Drug Allergy [facility] Rep[facility] (9 sources) dulaglutide; Translations: [Trulicity] Drug Allergy [facility] (9 sources) Niacin; Translations: [niacin] Drug Allergy [facility] (9 sources) rofecoxib; Translations: [Vioxx] Drug Allergy [facility] (1 source) Cefuroxime Drug Allergy 07-04-20 [facility] (1 source) celecoxib Drug Allergy 07-04-20 [facility] (1 source) Diflunisal Drug Allergy 07-04-20 [facility] (1 source) dulaglutide Drug Allergy 07-04-20 [facility] (1 source) liraglutide Drug Allergy 07-04-20 [facility] (1 source) metFORMIN Drug Allergy 07-04-20 [facility] (1 source) Naproxen Drug Allergy 07-04-20 [facility] Medications Current Medications Medication Drug [...] MG 1 Tablet Orally Daily Acti ve atorvastatin 10 mg oral tablet (1 source) HMG-CoA Reductase Inhibitor Start: 07-05-2025 take 1 tablet by mouth once daily at bedtime 24 hr buPROPion hydrochloride 300 mg extended [...] Bupropion Hcl Active May 28, 2018 11:00pm busPIRone hydrochloride 10 mg oral tablet (1 source) Start: 07-03-2025 take 1 tablet by mouth three times daily Buspirone 10 mg tablet Active 10 MG PO Three times daily July 03, 2025 12:00am Complies with drug therapy Calcium + D3 600-200 MG-UNIT (20 sources) take 1 tablet by mouth once daily Calcium + D3 600-200 MG-UNIT 1 tablet with a meal Orally Once a day Active calcium carbonate 1500 mg / cholecalciferol 200 unt oral tablet (20 sources) Vitamin D Calcium Carb-Cholecalcifer ol 600-5 MG-MCG tablet Active calcium carbonat e 600 mg-cholecalciferol 200 units 600 mg-5 mcg (200 unit) tab Calcium 600 Active Calcium Carbonate / vitamin D3 (7 sources) Start: 03-20-2024 take 1 tablet by mouth once daily calcium carbonate-vitamin D3 (Calcium 600 with Vitamin D3) Active 1 TAB PO Daily March 20, 2024 12:00am Complies with drug therapy Start: 03-20-2024 take 1 tablet by jatin th once daily calcium carbonate-vitamin D3 (Calcium 600 with Vitamin D3) Active 1 TAB PO Daily March 20, 2024 12:00am capsaicin 0.08 mg/mg medicated patch (14 sources) Start: 05-19-2025 Capsaicin-Cleansing Gel (Qutenza, 4 Patch,) 8 % patch Indications: Diabetes 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, unspecified whether assisted insulin use (HCC) , Neuropathy Apply 1 patch topically every 3 (three) months Follow instructions to prepare site. Prescriber to avinash area. Once applied, remove after 30 minutes and clean area with supplied gel. 1 patch 3 05/19/2025 Active carvedilol 6.25 mg oral tablet (2 sources) alpha-Adrenerg ic Nathaly, beta-Adrenergi c Nathaly Start: 03-26-2025 take 2 tablets by mouth twice daily Carvedilol 6.25 mg tablet Active 12.5 MG PO Twice daily March 26, 2025 12:00am Complies with drug therapy Start: 03-26-2025 take 1 tablet by jatin th twice daily Carvedilol 6.25 mg tablet Active 6.25 MG PO Twice daily March 26, 2025 12:00am Complies with drug therapy cephalexin 500 mg oral capsule (2 sources) Cephalosporin Antibacterial Start: 07-09-2025 End: 07-19-2025 take 1 capsule by mouth in the morning, then take 1 capsule by mouth in the evening, then take 1 capsule by mouth at bedtime, then take 1 capsule by mouth three times daily cephalexin (Keflex) 500 MG capsule Indications: Cellulitis of right foot Take 1 capsule (500 mg) by mouth in the morning and 1 capsule (500 mg) in the evening and 1 capsule (500 mg) before bedtime. Do all this for 10 days. Take one tablet by mouth three times daily. 30 capsule 07/09/2025 07/19/2025 Active Start: 07-03-2025 End: 07-05-2025 take 1 capsule by mouth four times daily Cephalexin 500 mg capsule Discontinued 500 MG PO Four times daily July 03, 2025 12:00am July 05, 2025 1:07pm clindamycin 300 mg oral capsule (20 sources) [...] ORAL Fish Oil 1200mg BID 0 Active doxycycline hyclate 100 mg oral capsule (1 source) Tetracycline-class Drug Start: 07-05-2025 take 1 capsule by mouth twice daily fish oil/borage/flax/om 3,6,9 1 (FISH,BORA,FLAX OILS-OM3,6,9NO1 ORAL) (12 sources) fish oil/borage/f lax/om3,6,9 1 (FISH,BORA,F LAX OILS-OM3,6,9 NO1 ORAL) Take by mouth every 24 hours. Active fish oil/borage/ flax/om3,6,9 1 (FISH,BORA,FLAX OILS-OM3,6,9NO1 ORAL) Take by mouth every 24 hours. 0 Active Fish Oils (20 sources) take 1 capsule by mouth once daily Fish Oil 1200 MG 1 capsule Orally daily Active furosemide 40 mg oral tablet (1 source) Loop Diuretic Start: 07-03-2025 take 1 tablet by mouth once daily in the morning Furosemide 40 mg tablet Active 40 MG PO Every morning July 03, 2025 12:00am Complies with drug therapy gabapentin 600 mg oral tablet (3 sources) [...] insulin aspart, human 100 unt/ml pen injector (7 sources) Insulin Analog Start: 12-11-2023 NovoLOG FlexPen 100 UNIT/ML 1:50 corrective scale ac tid Subcutaneous As Directed Active 3 ml insulin lispro 100 unt/ml pen injector (1 source) Insulin Analog Start: 05-31-2023 HumaLOG KwikPen 100 UNIT/ML 1:50 corrective scale ac tid Subcutaneous as directed for 30 days (expect up to 20 units/day) May, Active lidocaine 25 mg/ml / prilocaine 25 mg/ml topical cream (2 sources) Antiarrhythmic, Amide Local Anesthetic Start: 03-26-2025 Lidocaine-Prilocaine 2.5-2.5 % cream Active 2.5 GM TOPICAL Four times daily as needed for pain March 26, 2025 12:00am Complies with drug [...] hydrochloride 10 mg oral tablet (20 sources) V-rjgpfn-I-aspartate Receptor Antagonist Start: 05-31-2024 End: 03-31-2025 take [...] 12 hours. 12/26/2023 Active Start: 05-29-2018 End: 07-03-2025 take 1 tablet by mouth twice daily Metoprolol Tartrate 50 mg tablet Discontinued 50 MG PO Twice daily December 11, 2023 1:00am July 03, 2025 4:20pm Start: 05-29-2018 End: 12-11-2023 Metoprolol Tartrate 50 mg ta blet Discontinued May 29, 2018 12:00am December 11, 2023 12:22pm take 1 tablet by jatin th every twenty-four hours Metoprolol Tartrate 100 MG 1 tablet with food Orally Daily Active take 1 tablet by jatin th every twenty-four hours Metoprolol Tartrate 50 MG 1 Tablet Orally Daily Active Nitro Sublingual 0.4 (20 sources) Nitro Sublingual 0.4 Sublingual As Directed Active [place] 5-Zsk-Eoc-Fish Oil (Fish Oil) 1,000 mg (120 mg-180 mg) Capsule (9 sources) Start: 05-29-2018 take 1 capsule by mouth once daily [place] 8-Eap-Tfh-Fish Oil (Fish Oil) 1,000 mg (120 mg-180 mg) Capsule Active 1 CAP PO Daily May 29, 2018 12:00am Complies with drug therapy Start: 05-29-2018 [place] 3-Dha-Ep a-Fish Oil (Fish Oil) 1,000 mg (120 mg-180 mg) Capsule Active May 29, 2018 12:00am Complies with drug therapy Start: 05-29-2018 [place] 3-Dha-Ep a-Fish Oil (Fish Oil) 1,000 mg (120 mg-180 mg) Capsule Active May 29, 2018 12:00am Start: 05-29-2018 [place] 3-Dha-Ep a-Fish Oil (Fish Oil) 1,000 mg (120 mg-180 mg) Capsule Active May 28, 2018 11:00pm oxyCODONE hydrochloride 5 mg oral tablet (1 source) Opioid Agonist Start: 07-05-2025 take 1 tablet by mouth every six hours as needed for pain pioglitazone 30 mg oral tablet (20 sources) [...] 05/09/2023 Active take 2 tablets by mo [facility] every twenty-four hours Pioglitazone HCl 15 [...] Orally bid Q 10 DAYS Nov, Active QUEtiapine 50 mg oral tablet (1 source) Atypical Antipsychotic Start: 07-03-2025 take 1 tablet by mouth once daily at bedtime Quetiapine 50 mg tablet Active 50 MG PO Daily at bedtime July 03, 2025 12:00am Complies with drug therapy Resmetirom (1 source) Start: 07-03-2025 take 1 tablet by mouth once daily Resmetirom (Rezdiffra) 100 mg tablet Active 100 MG PO Daily July 03, 2025 12:00am Complies with drug therapy Rezdiffra 100 MG tablet (12 sources) Start: 05-05-2025 Rezdiffra 100 MG tablet 05/05/2025 Active simvastatin 20 mg oral tablet (20 sources) HMG-CoA Reductase Inhibitor Start: 07-03-2025 take 1 tablet by mouth at bedtime Simvastatin 20 mg tablet Active 20 MG PO Bedtime July 03, 2025 12:00am Complies with drug therapy Start: 02-27-2023 take 1 tablet by jatin th at bedtime simvastatin (Zocor) 40 MG tablet [...] ) 75 MG tablet 08/26/2024 Active Start: 12-11-2023 take 2 tablets by [facility] twice daily Venlafaxine 37.5 mg tablet Active 75 MG PO Twice daily December 11, 2023 1:00am Complies with drug therapy Start: 05-29-2018 End: 12-11-2023 take 1 tablet [...] / HYDROcodone bitartrate 5 mg oral tablet (9 sources) Opioid Agonist Start: 06-07-2018 End: 04-01-2024 take 1 tablet by mouth every four to six hours as needed for pain Hydrocodone-Acetami nophen 5-325 mg tablet Discontinued 1 TAB PO EVERY 4-6 HOURS as needed for pain June 07, 2018 April 01, 2024 2:54pm ALPRAZolam 0.5 mg oral tablet (7 sources) Benzodiazepine Start: 03-13-2025 End: 03-26-2025 take 1 tablet by mouth once Alprazolam (Xanax) 0.5 mg tablet Discontinued 0.5 MG PO Once 1 1 March 13, 2025 12:00am March 26, 2025 1:10pm Calcium + D 315-200 MG-UNIT (7 sources) take 1 tablet by mouth once daily Calcium + D 315-200 MG-UNIT 1 tablet Orally once a day Not-Taking take 1 tablet by mouth once zheng y Calcium + D 315-200 MG-UNIT 1 tablet Orally once a day Active canagliflozin 100 mg oral tablet (9 sources) Sodium-Glucose Cotransporter 2 Inhibitor Start: 05-29-2018 End: 12-11-2023 Canagliflozin (Invokana) 100 mg tablet Discontinued May 29, 2018 12:00am December 11, 2023 12:22pm ciprofloxacin 500 mg oral tablet (9 sources) Quinolone Antimicrobial Start: 06-07-2018 End: 03-20-2024 take 1 tablet by mouth every two hours Ciprofloxacin Hcl (Cipro) 500 mg tablet Discontinued 500 MG PO Q12H June 07, 2018 12:00am March 20, 2024 1:47pm administer dose at least 2 hrs before/6 hrs after dairy products, calcium, zinc, and/or iron-containing products FreeStyle [place] - (7 sources) FreeStyle [place] - use with baylee sensor SQ daily [...] on Mon06/12/24 at 0939, For 1 dose nitroglycerin 0.4 mg sublingual tablet (20 sources) Nitrate Vasodilator Start: 12-11-2023 End: 07-03-2025 Nitroglycerin 0.4 mg tablet, sublingual Discontinued 0.4 MG SUBLINGUAL as needed December 11, 2023 1:00am July 03, 2025 4:20pm Start: 04-19-2022 nitroglycerin (Nitrostat) 0.4 MG SL tablet 09/20/2023 Active oxybutynin chloride 5 mg oral tablet (9 sources) Cholinergic Muscarinic Antagonist Start: 06-07-2018 End: [...] 2024 12:00am March 13, 2025 1:22pm Start: 03-20-2024 take 1 capsule by mo uth every six hours as needed Tizanidine 4 mg capsule Active 4 MG PO Every 6 hours as needed for muscle spasticity March 20, 2024 1:48pm Complies with drug therapy Start: 12-11-2023 End: 03-20-2024 take 1 capsule by mouth once daily Tizanidine 4 mg capsule Discontinued 4 MG PO Daily December 11, 2023 1:00am March 20, 2024 1:50pm Start: 04-15-2023 take 1 tablet by jatin [...] [Claustrophobia] Onset: 5 03-13-2025 Chronic Anxiety disorders (9 sources) 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 [...] Coronary arteriosclerosis; Translations: [Atherosclerotic heart disease of [place] coronary artery without angina pectoris] Onset: 9 [...] without heart failure] Onset: 4 03-28-2025 Chronic Infective arthritis and osteomyelitis (except that caused by tuberculosis or sexually transmitted disease) (7 sources) Acute osteomyelitis of ankle and/or foot; Translations: [Acute hematogenous osteomyelitis, right ankle and foot] Onset: 5 07-04-2025 Chronic Mycoses (5 sources) Pain in toe; Translations: [Tinea unguium] 08-08-2024 Episodic Nutritional deficiencies (20 sources) Vitamin D deficiency; Translations: [Vitamin D deficiency, unspecified] Chronic Open wounds of extremities (7 sources) Amputated big toe; Translations: [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, initial encounter] 07-31-2024 Chronic Open wounds of extremities (3 sources) Injury of right foot; Translations: [Unspecified open wound, right foot, initial encounter] Onset: 5 07-04-2025 Episodic Osteoarthritis (10 sources) Arthritis of left acromioclavicular joint; Translations: [Primary osteoarthritis, left shoulder] 07-23-2024 Chronic Other aftercare (1 source) halfway (current) use of aspirin; Translations: [CONTACT CENTER ANALYST CURRENT USE OF ASPIRIN] Onset: 3 Episodic Other aftercare (1 source) Other intermediate teacher (current) drug therapy; Translations: [OTH LONGTERM CURRENT DRUG THERAPY] Onset: 3 Episodic Other [...] Onset: 3 Episodic Other connective tissue disease (17 sources) Chronic pain of right foot; Translations: [...] foot] 08-29-2024 Episodic Other connective tissue disease (8 sources) Pain in right lower limb; Translations: [Pain in right leg] 03-13-2025 Episodic Other connective tissue disease (3 sources) Pain of toe of right foot; Translations: [Pain in right toe(s)] 03-19-2025 Episodic Other connective tissue disease (5 sources) Recurrent falls ; Translations: [Repeated falls] 04-10-2025 Episodic Other diseases of veins and lymphatics (4 sources) Lymphedema, not elsewhere classified; Translations: [LYMPHEDEMA NOT ELSEWHERE CLASSIFIED] Onset: 3 Chronic Other diseases of veins and lymphatics (7 sources) Lymphedema of right lower limb; Translations: [Lymphedema, not elsewhere classified] 04-01-2024 Chronic Other diseases of veins and lymphatics (2 sources) Venous hypertension of lower limb; Translations: [Chronic venous hypertension (idiopathic) without complications of bilateral lower extremity] Onset: 5 07-05-2025 Chronic Other diseases of veins and lymphatics (1 source) Chronic venous hypertension (idiopathic) without complications of bilateral lower extremity; Translations: [Chronic venous hypertension (idiopathic) without complications of bilateral lower extremity] Onset: 5 Chronic Other diseases of veins and lymphatics (7 sources) Vascular insufficiency; Translations: [Venous insufficiency (chronic) [...] of other specified body structures] Chronic Other skin disorders (2 sources) Hemosiderin pigmentation of lower limb due to varicose veins of lower limb; Translations: [Other specified disorders of pigmentation] 07-04-2025 Episodic Other skin disorders (1 source) Other specified disorders of pigmentation; Translations: [Other specified disorders of pigmentation] Onset: 5 Episodic Other upper respiratory disease (4 sources) Epistaxis; [...] UNSPECIFIED] Onset: 3 Episodic Residual codes; unclassified (7 sources) Dependent edema; Translations: [Edema, unspecified] 04-01-2024 Episodic Residual codes; unclassified (2 sources) Bilateral lower limb edema; Translations: [Localized edema] 07-04-2025 Episodic Residual codes; unclassified (1 source) Localized edema; Translations: [Localized edema] Onset: 5 Episodic Skin and subcutaneous tissue infections (13 sources) Cellulitis of right lower limb; Translations: [Cellulitis] Onset: 5 Episodic Spondylosis; intervertebral disc disorders; other back problems (20 sources) Low back pain; Translations: [Low back pain] 03-13-2025 Episodic Superficial injury; contusion (1 source) Abrasion [...] 3; Translations: [Obesity, class 3] Onset: 3 Unclassified (2 sources) Post surgery appointment. Unclassified (2 sources) Follow-up with Vascular Surgery if you have difficulty with healing. Unclassified (1 source) Call office on Monday to schedule follow-up with your Primary Care Provider within 3-5 days of discharge. Unclassified (1 source) Low back pain, unspecified; Translations: [Low back pain, unspecified] Onset: 5 Varicose veins of lower extremity (1 source) Varicose veins of unspecified lower extremity with other complications; Translations: [Varicose veins of unspecified lower extremity with other complications] Onset: 5 Episodic Past or Other Problems Problem Classification Problem Date Documented Date Episodic/Chronic Administrative/social admission (20 sources) Dietary counseling and surveillance; Translations: [Patient encounter status] Onset: 10-21-2021 Resolved: 04-21-2022 Episodic Nonspecific chest pain (20 sources) Precordial pain; Translations: [Chest pain] Onset: 01-08-2013 03-28-2025 Episodic Other aftercare (20 sources) Long-term current use of insulin; 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] Onset: 06-26-2024 04-01-2024 Episodic Other aftercare (3 sources) halfway (current) use of insulin; 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] Onset: 11-25-2022 Episodic Other connective tissue disease (4 sources) Pain in right foot; Translations: [PAIN IN RIGHT FOOT] Onset: 08-18-2022 Episodic Other connective tissue disease (6 sources) Pain in right leg; Translations: [Pain in limb] Onset: 03-13-2025 03-13-2025 Episodic Other connective tissue disease (20 sources) Non-traumatic tendon rupture; Translations: [Spontaneous rupture of other tendons, right upper arm] Onset: 03-28-2025 03-28-2025 Episodic Other diseases of kidney and ureters (4 sources) Cyst of kidney, acquired; Translations: [CYST OF KIDNEY ACQUIRED] Onset: 2022 Episodic Other diseases of veins and lymphatics (20 sources) Peripheral venous insufficiency; Translations: [Venous insufficiency (chronic) (peripheral)] Onset: 03-28-2025 03-28-2025 Episodic Other lower respiratory disease (3 sources) Other forms of dyspnea; Translations: [OTHER FORMS OF DYSPNEA] Onset: 01-01-2023 Episodic Other lower respiratory disease (20 sources) Dyspnea on exertion; Translations: [Other forms of dyspnea] Onset: 12-18-2024 03-28-2025 Episodic Other non-traumatic joint disorders (20 sources) Pain in elbow; Translations: [Pain in right elbow] Onset: 12-18-2024 03-28-2025 Episodic Sprains and strains (20 sources) Injury of upper extremity; Translations: [Strain of muscle, fascia and tendon of triceps, right arm, initial encounter] Onset: 03-28-2025 03-28-2025 Episodic Unclassified (1 source) CHRN KIDNEY DISEASE STG 3 UNSP; Translations: [CHRN KIDNEY DISEASE STG 3 UNSP] Onset: 11-08-2022 Unclassified (1 source) Obesity, class 3; Translations: [Obesity, class 3] Onset: 12-18-2024 Results Test Name Value Interpretation Reference Range Facility Reminderson 07-07-2025 Reminders Reminders From: Roya Álvarez To: PREM Bermudez; Sent: 07/17/2024 10:05:54 EDT Show up: 05/17/2025 10:05:00 EDT Subject: Renal US Due Date/Time: 05/17/2025 10:05:00 EDT Reminder Message Renal US to be done prior to 1 year appointment. [facility]. Order created today. f/u 07/23/25 Talked to pt pt is having foot surgery on 07/10/25 and will be unable to walk. Pt will call us on next week to let us know how he is doing and if she needs to reschedule his appt or not for the 07/23/25. Normal [facility] Basic Metabolic Panelon 06-10 Anion gap [Moles/Vol] 10.3 mmol/L Normal 6.0-15.0 [facility] Comment on above: Performed By: #### G LULS #### Point of Care testing , Calcium [Mass/Vol] 9.0 mg/dL Normal 8.6-10.3 [facility] Comment on above: Performed By: #### G LULS #### Point of Care testing , Chloride [Moles/Vol] 104 mmol/L Normal 98-107 [facility] Comment on above: Performed By: #### G LULS #### Point of Care testing , CO2 [Moles/Vol] 26.1 mmol/L Normal 21.0-31.0 [facility] Comment on above: Performed By: #### G LULS #### Point of Care testing , Creatinine [Mass/Vol] 1.63 mg/dL High 0.70-1.30 [facility] Comment on above: Performed By: #### G LULS #### Point of Care testing , Creatinine Clr Calc Pharmacy 47.80 Normal [facility] Comment on above: Result Comment: PERF ORMED BY: [facility] [address] [place] [address] PATHOLOGIST UNDERWRITING SUPPORT MANAGER YULIA VILLEGAS M.D. Performed By: #### G LULS #### Point of Care testing , GFR/1.73 sq M.predicted MDRD (S/P/Bld) [Vol rate/Area] 43.669 mL/min/{1.73_m2} Normal [facility] Comment on above: Performed By: #### G LULS #### Point of Care testing , Glucose [Mass/Vol] 120 mg/dL High 70-100 [facility] Comment on above: Result Comment: [place] Glucose Reference Range is dependent on time and content of last meal. Glucose of more than 200 mg/dL in a nonstressed, ambulatory subject supports the diagnosis of Diabetes Mellitus. ADA recommended reference range Performed By: #### G LULS #### Point of Care testing , Potassium [Moles/Vol] 4.4 mmol/L Normal 3.5-5.1 [facility] Comment on above: Performed By: #### G LULS #### Point of Care testing , Sodium [Moles/Vol] 136 mmol/L Normal 136-145 [facility] Comment on above: Performed By: #### G LULS #### Point of Care testing , Urea nitrogen [Mass/Vol] 30 mg/dL High 7-25 [facility] Comment on above: Performed By: #### G LULS #### Point of Care testing , Complete Blood Count Auto Di ffon 07-05-2025 Basophils (Bld) [#/Vol] 0.1 10*3/uL Normal 0.0-0.2 [facility] Comment on above: Result Comment: PERF ORMED BY: [place] [address] PATHOLOGIST UNDERWRITING SUPPORT MANAGER YULIA VILLEGAS M.D. Performed By: #### B MP, CBC #### [address] Basophils/100 WBC (Bld) 0.8 % Normal . [facility] Comment on above: Performed By: #### B MP, CBC #### [address] Eosinophils (Bld) [#/Vol] 0.3 10*3/uL Normal 0.0-0.45 [facility] Comment on above: Performed By: #### B MP, CBC #### [address] Eosinophils/100 WBC (Bld) 4.3 % Normal . [facility] Comment on above: Performed By: #### B MP, CBC #### [address] Erythrocyte distribution width (RBC) [Ratio] 14.5 % Normal 12.0-14.8 [facility] Comment on above: Performed By: #### B MP, CBC #### [address] Hematocrit (Bld) [Volume fraction] 35.6 % Low 38.8-50.0 [facility] Comment on above: Performed By: #### B MP, CBC #### [address] Hemoglobin (Bld) [Mass/Vol] 12.0 g/dL Low 13.0-17.0 [facility] Comment on above: Performed By: #### B MP, CBC #### [address] Lymphocytes (Bld) [#/Vol] 0.8 10*3/uL Low 1.00-4.8 [facility] Comment on above: Performed By: #### B MP, CBC #### [address] Lymphocytes/100 WBC (Bld) 12.8 % Normal . [facility] Comment on above: Performed By: #### B MP, CBC #### [address] MCH (RBC) [Entitic mass] 27.5 pg Normal 27.5-35.2 [facility] Comment on above: Performed By: #### B MP, CBC #### [address] MCV (RBC) [Entitic vol] 81.9 fL Low 83.5-101 [facility] Comment on above: Performed By: #### B MP, CBC #### [address] Mean Corpuscular HGB Conc 33.6 g/dL Normal 32.5-35.6 [facility] Comment on above: Performed By: #### B MP, CBC #### [place] [address] [place] Monocytes (Bld) [#/Vol] 0.6 10*3/uL Normal 0.0-0.8 [facility] Comment on above: Performed By: #### B MP, CBC #### [place] [address] [place] Monocytes/100 WBC (Bld) 8.7 % Normal . [facility] Comment on above: Performed By: #### B MP, CBC #### [address] Neutrophils (Bld) [#/Vol] 4.9 10*3/uL Normal 1.8-7.7 [facility] Comment on above: Performed By: #### B MP, CBC #### [address] Neutrophils/100 WBC (Bld) 73.4 % Normal . [facility] Comment on above: Performed By: #### B MP, CBC #### [facility] [address] NRBC% 0.1 /100{WBC} Normal 0-0.5 [facility] Comment on above: Performed By: #### B MP, CBC #### [facility] [address] Platelet mean volume (Bld) [Entitic vol] 7.9 fL Normal 6.6-10.1 [facility] Comment on above: Performed By: #### B MP, CBC #### [address] Platelets (Bld) [#/Vol] 221 10*3/uL Normal 150-450 [facility] Comment on above: Performed By: #### B MP, CBC #### [address] RBC (Bld) [#/Vol] 4.35 10*6/uL Normal 3.90-5.60 [facility] Comment on above: Performed By: #### B MP, CBC #### [address] WBC (Bld) [#/Vol] 6.6 10*3/uL Normal 4.1-10.5 [facility] Comment on above: Performed By: #### B MP, CBC #### [address] White Blood Count 6.6 [CFU]/mL Normal 4.1-10.5 [facility] Comment on above: Performed By: #### B MP, CBC #### [address] Glucose Poct Glucometerson 0 07-05-2025 Glucose [Mass/Vol] 130 mg/dL Normal [facility] Comment on above: Result Comment: [place] Glucose Reference Range is dependent on time and content of last meal. Glucose of more than 200 mg/dL in a nonstressed, ambulatory subject supports the diagnosis of Diabetes Mellitus. PERFORMED BY: [address] [place] [address] PATHOLOGIST UNDERWRITING SUPPORT MANAGER YULIA VILLEGAS M.D. Performed By: #### G RAMÓN #### Point of Care testing , Glucose [Mass/Vol] 139 mg/dL Normal [facility] Comment on above: Result Comment: [facility] Glucose Reference Range is dependent on time and content of last meal. Glucose of more than 200 mg/dL in a nonstressed, ambulatory subject supports the diagnosis of Diabetes Mellitus. PERFORMED BY: [address] [address] PATHOLOGIST UNDERWRITING SUPPORT MANAGER YULIA VILLEGAS M.D. Performed By: #### G RAMÓN #### Point of Care testing , US arterial pvr rest Johnny US arterial pvr rest LE [facility] [place] [address] [place] [id number] Ultrasound Report Signed Patient: Dong Whitmore MR#: [id number] : 1950 Acct:[id number] Age/Sex: 74 / M ADM Date: 07/03/25 Loc: Room: [address] [place] [address] Type: ADM IN Attending Dr: Neo Venegas MD Ordering Provider: Nat Weldon APRN Date of Service: 07/04/25 US/US arterial pvr rest LE: right foot pain/ cellulitis Copies to: MD Nat Kwok APRN LOWER EXTREMITY SEGMENTAL ARTERIAL DOPSCAN (PVR) INDICATION: Nonhealing pediatric surgical site with concern for osteomyelitis PROCEDURE: Right arm blood pressure is 152 , left is 152 . Pressures at the right ankle are 186 using the posterior tibial artery, and 143 using the dorsalis pedis artery with ankle-brachial index of 1.22 0.94 . Pressures at the left ankle are 194 using the posterior tibial artery, and 188 with ankle- brachial index of 1.28 1.24 . Wave forms by plethysmography are normal. US/US arterial pvr rest LE IMPRESSION: NO HEMODYNAMICALLY SIGNIFICANT PERIPHERAL VASCULAR OCCLUSIVE DISEASE AT REST IN EITHER LOWER EXTREMITY. Normal PVR waveforms at the ankle bilaterally Right NARAYAN 1.22 Left NARAYAN 1.28 Impression dictated by: Tereso Gramajo M.D. 07/05/2025 10:37 AM Dictation Location: [place] [address] Tech: Khadra Menezes Transcribed By: CIRO 07/05/25 1037 Dictated By: Tereso Gramajo MD 07/05/25 1036 Signed By: 07/05/25 1037 Normal [facility] Basic Metabolic Panelon 06-10 Anion gap [Moles/Vol] 9.8 mmol/L Normal 6.0-15.0 [facility] Comment on above: Performed By: #### B MP, CBC #### [place] [address] [place] Calcium [Mass/Vol] 9.0 mg/dL Normal 8.6-10.3 [facility] Comment on above: Performed By: #### B MP, CBC #### [place] [address] [place] Chloride [Moles/Vol] 106 mmol/L Normal 98-107 [facility] Comment on above: Performed By: #### B MP, CBC #### [facility] [address] [place] [address] [place] CO2 [Moles/Vol] 23.5 mmol/L Normal 21.0-31.0 [facility] Comment on above: Performed By: #### B MP, CBC #### [place] [address] [place] Creatinine [Mass/Vol] 1.40 mg/dL High 0.70-1.30 [facility] Comment on above: Performed By: #### B MP, CBC #### [place] [address] [place] Creatinine Clr Calc Pharmacy 54.88 Normal [facility] Comment on above: Result Comment: PERF ORMED BY: [place] [address] PATHOLOGIST UNDERWRITING SUPPORT MANAGER YULIA VILLEGAS M.D. Performed By: #### B MP, CBC #### [place] [address] [place] GFR/1.73 sq M.predicted MDRD (S/P/Bld) [Vol rate/Area] 52.415 mL/min/{1.73_m2} Normal [facility] Comment on above: Performed By: #### B MP, CBC #### [address] Glucose [Mass/Vol] 121 mg/dL High 70-100 [facility] Comment on above: Result Comment: [facility] Glucose Reference Range is dependent on time and content of last meal. Glucose of more than 200 mg/dL in a nonstressed, ambulatory subject supports the diagnosis of Diabetes Mellitus. ADA recommended reference range Performed By: #### B MP, CBC #### [address] Potassium [Moles/Vol] 4.3 mmol/L Normal 3.5-5.1 [facility] Comment on above: Result Comment: Hemo lysis is present at a level that could interfere with the result. Contact lab if redraw is required Performed By: #### B MP, CBC #### [address] Sodium [Moles/Vol] 135 mmol/L Low 136-145 [facility] Comment on above: Performed By: #### B MP, CBC #### [address] Urea nitrogen [Mass/Vol] 26 mg/dL High 7-25 [facility] Comment on above: Performed By: #### B MP, CBC #### [address] C-Reactive Proteinon 025 C-Reactive Protein 1.4 mg/dL High 0.0-0.5 [facility] Comment on above: Result Comment: PERF ORMED BY: [place] [address] PATHOLOGIST UNDERWRITING SUPPORT MANAGER YULIA VILLEGAS M.D. Performed By: #### G RAMÓN #### Point of Care testing , Complete Blood Count Auto Di ffon 07-04-2025 Basophils (Bld) [#/Vol] 0.1 10*3/uL Normal 0.0-0.2 [facility] Comment on above: Result Comment: PERF ORMED BY: [place] [address] PATHOLOGIST UNDERWRITING SUPPORT MANAGER YULIA VILLEGAS M.D. Performed By: #### B MP, CBC #### [address] Basophils/100 WBC (Bld) 1.3 % Normal . [facility] Comment on above: Performed By: #### B MP, CBC #### [place] [address] [place] Eosinophils (Bld) [#/Vol] 0.3 10*3/uL Normal 0.0-0.45 [facility] Comment on above: Performed By: #### B MP, CBC #### [address] Eosinophils/100 WBC (Bld) 5.7 % Normal . [facility] Comment on above: Performed By: #### B MP, CBC #### [address] Erythrocyte distribution width (RBC) [Ratio] 14.1 % Normal 12.0-14.8 [facility] Comment on above: Performed By: #### B MP, CBC #### [address] Hematocrit (Bld) [Volume fraction] 37.6 % Low 38.8-50.0 [facility] Comment on above: Performed By: #### B MP, CBC #### [address] Hemoglobin (Bld) [Mass/Vol] 12.5 g/dL Low 13.0-17.0 [facility] Comment on above: Performed By: #### B MP, CBC #### [address] Lymphocytes (Bld) [#/Vol] 1.1 10*3/uL Normal 1.00-4.8 [facility] Comment on above: Performed By: #### B MP, CBC #### [address] Lymphocytes/100 WBC (Bld) 20.8 % Normal . [facility] Comment on above: Performed By: #### B MP, CBC #### [address] MCH (RBC) [Entitic mass] 27.7 pg Normal 27.5-35.2 [facility] Comment on above: Performed By: #### B MP, CBC #### [address] MCV (RBC) [Entitic vol] 83.2 fL Low 83.5-101 [facility] Comment on above: Performed By: #### B MP, CBC #### [address] Mean Corpuscular HGB Conc 33.2 g/dL Normal 32.5-35.6 [facility] Comment on above: Performed By: #### B MP, CBC #### [place] [address] [place] Monocytes (Bld) [#/Vol] 0.6 10*3/uL Normal 0.0-0.8 [facility] Comment on above: Performed By: #### B MP, CBC #### [place] [address] [place] Monocytes/100 WBC (Bld) 11.8 % Normal . [facility] Comment on above: Performed By: #### B MP, CBC #### [address] Neutrophils (Bld) [#/Vol] 3.2 10*3/uL Normal 1.8-7.7 [facility] Comment on above: Performed By: #### B MP, CBC #### [address] Neutrophils/100 WBC (Bld) 60.4 % Normal . [facility] Comment on above: Performed By: #### B MP, CBC #### [address] NRBC% 0.1 /100{WBC} Normal 0-0.5 [facility] Comment on above: Performed By: #### B MP, CBC #### [address] Platelet mean volume (Bld) [Entitic vol] 7.8 fL Normal 6.6-10.1 [facility] Comment on above: Performed By: #### B MP, CBC #### [address] Platelets (Bld) [#/Vol] 219 10*3/uL Normal 150-450 [facility] Comment on above: Performed By: #### B MP, CBC #### [address] RBC (Bld) [#/Vol] 4.52 10*6/uL Normal 3.90-5.60 [facility] Comment on above: Performed By: #### B MP, CBC #### [address] WBC (Bld) [#/Vol] 5.3 10*3/uL Normal 4.1-10.5 [facility] Comment on above: Performed By: #### B MP, CBC #### [address] White Blood Count 5.3 [CFU]/mL Normal 4.1-10.5 [facility] Comment on above: Performed By: #### B MP, CBC #### [address] Glucose Poct Glucometerson 0 07-04-2025 Glucose [Mass/Vol] 130 mg/dL Normal [facility] Comment on above: Result Comment: [facility] Glucose Reference Range is dependent on time and content of last meal. Glucose of more than 200 mg/dL in a nonstressed, ambulatory subject supports the diagnosis of Diabetes Mellitus. PERFORMED BY: [place] [address] PATHOLOGIST UNDERWRITING SUPPORT MANAGER YULIA VILLEGAS M.D. Performed By: #### G LULS #### Point of Care testing , Glucose [Mass/Vol] 160 mg/dL Normal [facility] Comment on above: Result Comment: [place] Glucose Reference Range is dependent on time and content of last meal. Glucose of more than 200 mg/dL in a nonstressed, ambulatory subject supports the diagnosis of Diabetes Mellitus. PERFORMED BY: [address] [place] [id number] PATHOLOGIST UNDERWRITING SUPPORT MANAGER YULIA VILLEGAS M.D. Performed By: #### G LULS #### Point of Care testing , Glucose [Mass/Vol] 163 mg/dL Normal [facility] Comment on above: Result Comment: [facility] Glucose Reference Range is dependent on time and content of last meal. Glucose of more than 200 mg/dL in a nonstressed, ambulatory subject supports the diagnosis of Diabetes Mellitus. PERFORMED BY: [place] [address] PATHOLOGIST UNDERWRITING SUPPORT MANAGER YULIA VILLEGAS M.D. Performed By: #### G LULS #### Point of Care testing , Commemt1 Glu2: Cleaned Meter Normal [facility] Comment on above: Result Comment: PERF ORMED BY: [place] [id number] PATHOLOGIST UNDERWRITING SUPPORT MANAGER YULIA VILLEGAS M.D. Performed By: #### G LULS #### Point of Care testing , Glucose [Mass/Vol] 120 mg/dL Normal [facility] Comment on above: Result Comment: [place] Glucose Reference Range is dependent on time and content of last meal. Glucose of more than 200 mg/dL in a nonstressed, ambulatory subject supports the diagnosis of Diabetes Mellitus. Performed By: #### G LULS #### Point of Care testing , Efe 07-04-2025 L - -------- Specimen: [id number] Received: 07/04/25 Status: YEMI Elizabeth Num: [id number] Spec Type: Surgical Subm Dr: Bassam Aguilar DPM Tissues: A DIGIT AMPUTATION (R FOOT) Procedures: MIGUEL, Gross/Micro L4, Decalcification -------- Age/ Patient Sex Location Account Attending Physician -------- Dong Whitmore 74/M [id number] Neo Venegas MD -------- SPEC NUM: [id number] RECD: 07/04/25 STATUS: YEMI ELIZABETH NUM: [id number] ZURI: 07/04/[address]: Bassam Aguilar DPM ENTERED: 07/04/[address]: SPEC TYPE: Surgical DEPT: S ENTERED BY: [id number] RECV BY: [id number] ORDERED: HE/2, Gross/Micro L4, Decalcification ORDERED: HE/2, Gross/Micro L4, Decalcification Pathological Diagnosis A. Bone, right great toe, amputation: Bone with reactive changes, negative for significant acute inflammation, consistent with resolving osteomyelitis Skin and soft tissue with chronic inflammation Peripheral margin negative for significant acute inflammation Clinical Information Osteomyelitis Gross Description Part A is received in formalin labeled with the patients date of , and Inge R great toe is a digit amputated at the right first metatarsal bone (2 cm from the metatarsal joint), 7 cm in length by up to 3 cm in diameter. The dorsal distal aspect of the digit displays a wound, 2.4 x 2 cm that is situated 1.5 cm from the proximal skin margin. The proximal 4 cm of the specimen is received without overlying soft tissue or skin, while the remaining distal 3 cm of the specimen is covered by kuo-buckley, wrinkled, focally sloughing skin. A medical center representative section of the wound with underlying phalangeal bone is submitted in A1 after decalcification with tangential cross-sections of the proximal skin margin submitted in A2. (2, , [id number] A)CAITLIN -------- Specimen: [id number] Received: 07/04/25 Status: YEMI Vargas Num: [id number] Spec Type: Surgical Subm Dr: Bassam Aguilar DPM Tissues: A DIGIT AMPUTATION (R FOOT) Procedures: HE/2, Gross/Micro L4, Decalcification -------- Patient: Dong Whitmore [id number] (Continued) -------- Specimen: [id number] Received: 07/04/25 (Continued) Signed (signature on file) Maribel Bonner DO 07/08/25 1135 -------- Specimen: [id number] Received: 07/04/25 Status: YEMI Vargas Num: [id number] Spec Type: Surgical Subm Dr: Bassam Aguilar DPM Tissues: A DIGIT AMPUTATION (R FOOT) Procedures: WHITNEY/Lavonne, Gross/Micro L4, Decalcification -------- Patient: Dong Whitmore [id number] (Continued) -------- Specimen: [id number] Received: 07/04/25 (Continued) Microscopic Description Sections show bone, soft tissue, and skin with reactive changes, and chronic inflammation in skin and soft tissue. No evidence of significant acute inflammation. Peripheral margin is negative for acute inflammation. -------- -------- Specimen: [id number] Received: 07/04/25 Status: YEMI Vargas Num: [id number] Spec Type: Surgical Subm Dr: Bassam Aguilar DPM Tissues: A DIGIT AMPUTATION (R FOOT) Procedures: HE/2, Gross/Micro L4, Decalcification -------- Patient: Dong Whitmore [id number] (Continued) -------- Signed (signature on file) Mraibel Bonner DO 07/08/25 1135 Normal [facility] Glucose Poct Glucometerson 0 07-03-2025 Commemt1 Glu2: Cleaned Meter Normal [facility] Comment on above: Result Comment: PERF ORMED BY: [address] [address] PATHOLOGIST UNDERWRITING SUPPORT MANAGER YULIA VILLEGAS M.D. Performed By: #### G LULS #### Point of Care testing , Glucose [Mass/Vol] 211 mg/dL Normal [facility] Comment on above: Result Comment: Wayne Glucose Reference Range is dependent on time and content of last meal. Glucose of more than 200 mg/dL in a nonstressed, ambulatory subject supports the diagnosis of Diabetes Mellitus. Performed By: #### G LULS #### Point of Care testing , Glucose [Mass/Vol] 229 mg/dL Normal [facility] Comment on above: Result Comment: Wayne om Glucose Reference Range is dependent on time and content of last meal. Glucose of more than 200 mg/dL in a nonstressed, ambulatory subject supports the diagnosis of Diabetes Mellitus. PERFORMED BY: [address] [address] PATHOLOGIST UNDERWRITING SUPPORT MANAGER YULIA VILLEGAS M.D. Performed By: #### G LULS #### Point of Care testing , XR foot RT min 3V*on 025 XR foot RT min 3V* [facility] [place] [address] [place] [address] XRay Report Signed Patient: Dong Whitmore MR#: [id number] : 1950 Acct:[id number] Age/Sex: 74 / M ADM Date: 07/03/25 Loc: Room: [address] [place] [address] Type: ADM IN Attending Dr: Neo Venegas MD Copies to: MD Bassam Kwok DPM Ordering Provider: Bassam Aguilar DPM Date of Service: 07/03/25 XR/XR foot RT min 3V*: right foot OM 3 views of the right foot INDICATION: Right foot osteomyelitis. FINDINGS: Amputation second digit. Amputation of the distal first digit and distal third digit noted. There is increased lucency involving the distal second through fifth metatarsals unclear if this is due to hyperemia. No definite bony erosions. There are opaque foreign body. XR/XR foot RT min 3V* IMPRESSION: Evidence of distal toe amputations. Slight increased lucency involving the distal second through fifth metatarsals noted unclear if this is due to hyperemia or underlying infectious inflammatory process.. No definite osseous erosions. Impression dictated by: Anup Kunz M.D. 07/03/2025 9:51 PM Dictation Location: [facility]-- Transcribed By: [facility] 07/03/252150 Dictated By: Anup Kunz MD 07/03/252148 Signed By: 07/03/252150 Normal [facility] 06-25-20 Pending Sale To [facility] Case Information Case Priority: None Programs: -- Referral Source: Medical Center Representative Referral Reason: Disease management Case Type: Chronic [...] neuropathy Complex renal cyst Coronary arteriosclerosis in [place] artery Dizziness Dizziness and giddiness Encounter for [...] mg= 1 tab(s), Oral, Daily Potassium Chloride (Dsl-Tcpg-Ojb M20) 20 mEq oral tablet, extended release, [...] Unknown cause) (more content not included)... Normal [facility] 37on 06-24-2025 37 *Increase carvedilol [...] *Referral also sent for wound care clinic. [facility] Office Visiton 06-24-2025 Follow-up visit [id number] Dong Whitmore 1950 M Date Provider Department Center 06/24/2025 Yung-MARY APARICIO Family History Problem Relation Age of Onset Stroke Mother Stroke Father Coronary artery disease Other Diabetes Other Family Status - Relation Status Age at Mother Father Other Level of Service:22875 ND OFFICE/OUTPATIENT ESTABLISHED MOD MDM 30 MIN Reason for Visit and Comments: Coronary Artery Disease [187] Hypertension [342043] - Had labs last week. Hyperlipidemia [182] Follow-up [466727] - Patient is here today for a 3 month routine follow up. Patient states he has no cardiac complaints at this time. [facility] .Interpretation:on Interpretation: Comment Invalid Interpretation Code [facility] Comment on above: Result Comment: Not infected with HCV unless early or acute infection is suspected (which may be delayed in an immunocompromised individual), or other evidence exists to indicate HCV infection. Performed at: [facility] [address] [id number] PhD Faye Ring Performed By: #### 2 [id number] #### [facility] [address] [place] [address] HCV Antibody RFX to Quant PC Jack 06-21-2025 HCV Ab Non-Reactive Invalid Interpretation Code Non Reactive [facility] Comment on above: Result Comment: Perf ormed at: [facility] [address] [id number] PhD Faye Ring Performed By: #### 2 [id number] #### [facility] [address] [place] [address] Ambulatory Visit Summaryon 0 06-19-2025 Ambulatory Visit [...] done Your Care Team Attending Physician - Naentte Do Primary Care Physician - Nanette Do This Is Your Medications List [facility] [place] (Eric Prather, 5 years.) acarbose (acarbose [...] 30 mg Tab) potassium chloride (Potassium Chloride (Nne-Vckm-Gkq M20) 20 mEq oral tablet, extended release) [...] Appointments 2024 9:20 AM EDT With: Where: [address] [address]- Monday 9:15 AM EDT With: LATRICIA SCHUSTER, Araceli Treadwell Where: [facility] [address] [place] [address]- 2024 9:40 AM EST With: Nanette Do Where: [address] [address] 2025 8:00 AM EDT With: Where: [address] [address]- Medications What How Much When Why [...] Unchanged c (more content not included)... Normal [facility] CBC w/ Auto Diffon 5 Basophil Absolute 0.0 E9/L Normal 0.0-0.[address] [facility] Comment on above: Performed By: #### 2 [id number] #### [facility] [address] [place] [address] Basophils/100 WBC (Bld) 0.6 % Normal 0.0-2.[address] [facility] Comment on above: Performed By: #### 2 092824 #### [facility] [address] [place] [address] Eos Absolute 0.2 E9/L Normal 0.0-0.[address] [facility] Comment on above: Performed By: #### 2 233671 #### [facility] [address] [place] [address] Eosinophils/100 WBC (Bld) 3.1 % Normal 0.0-8.[address] [facility] Comment on above: Performed By: #### 2 014484 #### [facility] [address] [place] [address] Erythrocyte distribution width (RBC) [Ratio] 14.3 % High 10.9-14.[address] [facility] Comment on above: Performed By: #### 2 474715 #### [facility] [address] [place] [address] Hematocrit (Bld) [Volume fraction] 33.2 % Low 37.7-49.[address] [facility] Comment on above: Performed By: #### 2 405585 #### [facility] [address] [place] [address] Hemoglobin (Bld) [Mass/Vol] 11.3 g/dL Low 13.5-17.[address] [facility] Comment on above: Performed By: #### 2 207469 #### [facility] [address] [place] [address] Lymph Absolute 0.7 E9/L Low 1.0-4.0 [facility] Comment on above: Performed By: #### 2 719758 #### [facility] [address] [place] [address] Lymphocytes/100 WBC (Bld) 11.1 % Low 14.0-50.[address] [facility] Comment on above: Performed By: #### 2 437825 #### [facility] [address] [place] [address] MCH (RBC) [Entitic mass] 28.1 pg Normal 27.0-34.[address] [facility] Comment on above: Performed By: #### 2 665087 #### [facility] [address] [place] [address] MCHC (RBC) [Mass/Vol] 34.0 g/dL Normal 31.4-36.0 [facility] Comment on above: Performed By: #### 2 227003 #### [facility] [address] [place] [address] MCV (RBC) [Entitic vol] 82.9 fL Normal 80.0-100.[address] [facility] Comment on above: Performed By: #### 2 006299 #### [facility] [address] [place] [address] Webster Absolute 0.4 E9/L Normal 0.2-1.0 [facility] Comment on above: Performed By: #### 2 955689 #### [facility] [address] [place] [address] Monocytes/100 WBC (Bld) 6.3 % Normal 4.0-14.[address] [facility] Comment on above: Performed By: #### 2 055315 #### [facility] [address] [place] [address] Neutro Absolute 5.0 E9/L Normal 2.0-7.5 [facility] Comment on above: Performed By: #### 2 548491 #### [facility] [address] [place] [address] Neutro Auto 78.9 % High 36.0-75.[address] [facility] Comment on above: Performed By: #### 2 449076 #### [facility] [address] [place] [address] Platelet 210.0 E9/L Normal 150.0-500.[address] [facility] Comment on above: Performed By: #### 2 052961 #### [facility] [address] [place] [address] Platelet mean volume (Bld) [Entitic vol] 8.6 fL Normal 6.4-10.[address] [facility] Comment on above: Performed By: #### 2 985446 #### [facility] [address] [place] [address] RBC 4.0 E12/L Low 4.3-5.[address] [facility] Comment on above: Performed By: #### 2 542458 #### [facility] [address] [place] [address] WBC 6.4 E9/L Normal 4.0-11.[address] [facility] Comment on above: Performed By: #### 2 328832 #### [facility] [address] [place] [address] CMPon 06-19-2025 Albumin [Mass/Vol] 3.9 g/dL Normal 3.3-5.[address] [facility] Comment on above: Performed By: #### 2 237213 #### [facility] [address] [place] [address] Albumin/Globulin [Mass ratio] 1.5 {ratio} Normal 1.1-2.[address] [facility] Comment on above: Performed By: #### 2 753570 #### [facility] [address] [place] [address] Alk Phos 78 Int._Unit/L Normal 21-98 [facility] Comment on above: Performed By: #### 2 558595 #### [facility] [address] [place] [address] ALT 27 Int._Unit/L Normal 6-46 [facility] Comment on above: Performed By: #### 2 092490 #### [facility] [address] [place] [address] Anion gap [Moles/Vol] 11 mmol/L Normal 6-16 [facility] Comment on above: Performed By: #### 2 [id number] #### [facility] [address] [place] [address] AST 25 Int._Unit/L Normal 5-43 [facility] Comment on above: Performed By: #### 2 589936 #### [facility] [address] [place] [address] Bili Total 0.3 mg/dL Normal 0.0-1.[address] [facility] Comment on above: Performed By: #### 2 498142 #### [facility] [address] [place] [address] BUN/Creat Ratio 22 No Units High 10-20 [facility] Comment on above: Performed By: #### 2 019614 #### [facility] [address] [place] [address] Calcium [Mass/Vol] 9.0 mg/dL Normal 8.9-11.[address] [facility] Comment on above: Performed By: #### 2 976519 #### [facility] [address] [place] [address] Chloride [Moles/Vol] 106 mmol/L Normal 101-111 [facility] Comment on above: Performed By: #### 2 538789 #### [facility] [address] [place] [address] CO2 [Moles/Vol] 22 mmol/L Normal 21-31 [facility] Comment on above: Performed By: #### 2 608747 #### [facility] [address] [place] [address] Creatinine [Mass/Vol] 1.3 mg/dL Normal 0.5-1.3 [facility] Comment on above: Performed By: #### 2 706002 #### [facility] [address] [place] [address] Globulin (S) [Mass/Vol] 2.6 g/dL Normal 1.4-4.[address] [facility] Comment on above: Performed By: #### 2 444946 #### [facility] [address] [place] [address] Glucose [Mass/Vol] 203 mg/dL High 55-[address] [facility] Comment on above: Performed By: #### 2 898710 #### [facility] [address] [place] [address] Potassium [Moles/Vol] 4.0 mmol/L Normal 3.5-5.3 [facility] Comment on above: Performed By: #### 2 885935 #### [facility] [address] [place] [address] Protein [Mass/Vol] 6.5 g/dL Normal 6.0-7.[address] [facility] Comment on above: Performed By: #### 2 646093 #### [facility] [address] [place] [address] Sodium [Moles/Vol] 135 mmol/L Normal 135-[address] [facility] Comment on above: Performed By: #### 2 499129 #### [facility] [address] [place] [address] Urea nitrogen [Mass/Vol] 28 mg/dL High 5-[address] [facility] Comment on above: Performed By: #### 2 904571 #### [facility] [address] [place] [address] Family Medicine Office/Clini c Noteon 06-19-2025 Family [...] [facility] Present Illness pt presents today [...] would like to try dry needling at [place]. pt feels he has tried everything and he just can't get it under control. RTC 3 months Ordered: busPIRone, 10 mg = 1 tab(s), Oral, TID, # 90 tab(s), Refills(s) 0, Pharmacy: [facility] #[id number], 168, cm, 06/19/25 11:19:00 EDT, Height/Length Dosing, 117.9, kg, 06/19/25 11:19:00 EDT, Weight Dosing Lab Specimen Collect [address] Physical Therapy Evaluation - External Facility 2. Non-smoker (Z78.9: Other specified health status) continue not smoking Ordered: busPIRone, 10 mg = 1 tab(s), Oral, TID, # 90 tab(s), Refills(s) 0, Pharmacy: [facility]/pharmacy #[id number], 168, cm, 06/19/25 11:19:00 EDT, Height/Length Dosing, 117.9, kg, 06/19/25 11:19:00 EDT, Weight Dosing Physical Therapy Evaluation - External Facility 3. BMI 40.0-44.9, adult (Z68.41: Body mass index [BMI] 40.0-44.9, adult) BMI education Ordered: busPIRone, 10 mg = 1 tab(s), Oral, TID, # 90 tab(s), Refills(s) 0, [id number] 168, cm, 06/19/25 11:19:00 EDT, Height/Length Dosing, 117.9, kg, 06/19/25 11:19:00 EDT, Weight Dosing Physical Therapy Evaluation - External Facility 4. Fatty liver (K76.0: Fatty (change of) liver, not elsewhere classified) will check labs today Orders: acarbose, 50 mg = 1 tab(s), Oral, TID, # 270 tab(s), Refills(s) 1, Pharmacy: [facility]/pharmacy #[id number], 168, cm, 06/19/25 11:19:00 EDT, Height/Length Dosing, 117.9, kg, 06/19/25 11:19:00 EDT, Weight Dosing tizanidine, See Instructions, TAKE 1 TO 2 TABLETS BY MOUTH 4 TIMES A DAY, # 270 tab(s), Refills(s) 1, Pharmacy: [facility]/pharmacy #[id number], 168, cm, 06/19/25 11:19:00 EDT, Height/Length [...] neuropathy Complex renal cyst Coronary arteriosclerosis in [place] artery Dizziness Dizziness and giddiness Encounter for [...] electrode a (more content not included)... Normal [facility] Comment on above: Result Comment: Elec tronically Signed By: Nanette Do\.br\Date and Time Signed: 06/19/25 12:35 EDT eGFRon 06-19-2025 eGFR 57 mL/min/1.73 m2 Low >=[address] [facility] Comment on above: Performed By: #### 1 [id number] #### [facility] [address] [place] [address] [facility] 05-30-20 [facility] Case Information Case Priority: None Programs: -- Referral Source: Medical Center Representative Referral Reason: Disease management Case Type: Chronic [...] neuropathy Complex renal cyst Coronary arteriosclerosis in [place] artery Dizziness Dizziness and giddiness Encounter for [...] mg= 1 tab(s), Oral, Daily Potassium Chloride (Lkj-Kwze-Axh M20) 20 mEq oral tablet, extended release, [...] alcohol concerns: (more content not included)... Normal [facility] Ambulatory Visit Summaryon 0 05-20-2025 Ambulatory Visit Summary Ambulatory Visit Summary DONG WHITMORE Boom :1950 Visit Date:05/20/2025 Ambulatory Visit Instructions Your [...] Nanette Do This Is Your Medications List [facility] [place] (Handicap Yamilka, 5 years.) acarbose (acarbose [...] 30 mg Tab) potassium chloride (Potassium Chloride (Ams-Gikp-Wad M20) 20 mEq oral tablet, extended release) [...] SCHUSTER, Araceli Treadwell Where: [facility] [address] [place] [address] 2025 8:00 AM EDT With: Where: [address] [address]- Medications What How Much When Why Instructions [...] WITH BREAKFAST (more content not included)... Normal [facility] Family Medicine Office/Clini c Noteon 05-20-2025 [...] directions is why he was discharged from [facility]. 3. Non-smoker (Z78.9: Other specified health [...] neuropathy Complex renal cyst Coronary arteriosclerosis in [place] artery Dizziness Dizziness and giddiness Encounter for [...] C screeni (more content not included)... Normal [facility] Comment on above: Result Comment: [...] done Your Care Team Attending Physician - Haider Hickman MD Primary Care Physician - Nanette Do This Is Your Medications List [facility] Prescription (Eric Prather, 5 years.) acarbose (acarbose [...] 30 mg Tab) potassium chloride (Potassium Chloride (Bxx-Horg-Ekh M20) 20 mEq oral tablet, extended release) [...] 10:00 AM EDT With: Nanette Do Where: [facility] [address] [address]- Monday 9:15 AM EDT With: Araceli BERMUDEZ MD Where: [facility] [place] [address], [address] [place] [address]25 8:00 AM EDT With: Where: [facility] [place] [address] [place] [address]- You Need to Complete the Following HCV [...] TABLET BY (more content not included)... Normal [facility] Family Medicine Office/Clini c Noteon 05-19-2025 Family Medicine [...] home safety screening reviewed, see # 10 [place] Advance Directives reviewed, has completed and on [...] around 140 and evening reading around 120. 03/13/25 HgbA1c 6.5. DM stoplight handout reviewed with s/s to monitor for and report to Endocrinology and PCP. Discussed ADA dietary recommendations with low carbs and reduce sug (more content not included)... Normal [facility] Comment on above: Result Comment: [...] Do Primary Care Physician - Haider Hickman MD. This Is Your Medications List [facility] Prescription (Handicap Placard, 5 years.) acarbose (acarbose [...] 30 mg Tab) potassium chloride (Potassium Chloride (Aio-Loxl-Wgx M20) 20 mEq oral tablet, extended release) [...] Appointments 2024 8:00 AM EDT With: Where: [address] [address]- Monday 10:00 AM EDT With: Nanette Do Where: [address] [address]- Monday 9:15 AM EDT With: LATRICIA SCHUSTER, Araceli Treadwell Where: [facility] [address], [address] [place] [address]- Medications What How Much When Why Instructions [...] (losartan 50 (more content not included)... Normal [facility] Family Medicine Office/Clini c Noteon 04-14-2025 Family Medicine Office/Clinic Note Family Medicine Office/Clinic Note HPI Staff Dong is a 74 year old male presenting with toe pain discuss referral to pain management Former [facility] patient Was discharged from [place] [facility] due to behaviors Toe pain: [...] this is why he was discharged from [place] [facility]. pt is looking in to psych pain management. is also thinking about going to a ketamine clinic in [place]. wants to hold off on referral to pain management at this time. will start Seroquel to take before bed to help with sleep. RTC 5 weeks Ordered: quetiapine, 50 mg = 1 tab(s), Oral, Bedtime, # 90 tab(s), Refills(s) 0, [id number] 168, cm, 04/14/25 10:19:00 EDT, Height/Length [...] # 90 tab(s), Refills(s) 0, Pharmacy: [facility] #[id number], 168, cm, 04/14/25 10:19:00 EDT, Height/Length Dosing, 116.9, kg, 04/14/25 10:19:00 EDT, Weight Dosing 4. Obesity, morbid, BMI 40.0-49.9 (E66.01: Morbid (severe) obesity due to excess calories) see above Ordered: quetiapine, 50 mg = 1 tab(s), Oral, Bedtime, # 90 tab(s), Refills(s) 0, [facility]acy: [id number], 168, cm, 04/14/25 10:19:00 EDT, Height/Length Dosing, 116.9, kg, 04/14/25 10:19:00 EDT, Weight Dosing 5. Non-smoker (Z78.9: Other specified health status) continue not smoking Ordered: quetiapine, 50 mg = 1 tab(s), Oral, Bedtime, # 90 tab(s), Refills(s) 0, Pharmacy: [facility] #[id number], 168, cm, 04/14/25 10:19:00 EDT, Height/Length [...] neuropathy Complex renal cyst Coronary arteriosclerosis in [place] artery Dizziness Dizziness and giddiness Erythema of [...] array, epidural (more content not included)... Normal [facility] Comment on above: Result Comment: Elec tronically Signed By: Nanette Do\.br\Date and Time Signed: 04/14/25 16:23 EDT MR HEAD/BRAIN WO Mj 04-08 [place] [address] Magnetic Resonance Report Signed Patient: DONG WHITMORE MR#: [id number] : 1950 Acct:[id number] Age/Sex: 74 / M ADM Date: 04/08/25 Loc: MRI Attending Dr: David Timmis M.D. Ordering Physician: David Wong M.D. Date of Service: 04/08/25 Procedure(s): MR head/brain wo con Accession Number(s): [id number] cc: HAIDER HICKMAN ; David Wong M.D. [address] [address] Patient Name: DONG WHITMORE MRN: [facility]:[id number] date: 1950 Sex: M Assigned Patient Location: MRI Current Patient Location: MRI Accession/Order Number: [id number] Exam Date: 04/08/2025 13:09 Report Date: 04/08/2025 [...] Kunz M.D. 04/08/2025 1:17 PM Dictation Location: [place] [address] Electronically authenticated by: [id number] Y Date: 04/08/2025 13:17 Dictated By: Anup Kunz M.D. Signed By: 04/08/25 1320 DD/ 1317 TD/TT: Assembly Line Driver: [facility] Radiology, Radiologist, - 04/08/2025 [place] [address] Magnetic Resonance Report Signed Patient: DONG WHITMORE MR#: [id number] : 1950 Acct:[id number] Age/Sex: 74 / M ADM Date: 04/08/25 Loc: MRI Attending Dr: David Wong M.D. Ordering Physician: David Wong M.D. Date of Service: 04/08/25 Procedure(s): MR head/brain wo con Accession Number(s): [id number] cc: HAIDER HICKMAN ; David Wong M.D. The [place] [address] Patient Name: DONG WHITMORE MRN: [facility]:[id number] date: 1950 Sex: M Assigned Patient Location: MRI Current Patient Location: MRI Accession/Order Number: [id number] Exam Date: 04/08/2025 13:09 Report Date: 04/08/2025 [...] Kunz M.D. 04/08/2025 1:17 PM Dictation Location: [place] [address] Electronically authenticated by: [id number] Y Date: 04/08/2025 13:17 Dictated By: Anup Kunz M.D. 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 Left Ear: Mild sloping to profound sensorineural hearing loss above 1K Hz [facility] HbA1c HPLC (Bld) [Mass fract ion]Ordered By: Aldo Middleton on 03-26-2025 HbA1c (Bld) [Mass fraction] 6.1 % [facility] No Panel InformationOrdered By: Aldo Middleton on 03-26-2025 Bedside Glucose 149 [facility] US UNI ankle/arm indiceson 0 03-24-2025 US UNI ankle/arm indices [facility] [address] [place] [address] Ultrasound Report Signed Patient: Dong Whitmore MR#: [id number] : 1950 Acct:[id number] Age/Sex: 74 / M ADM Date: 03/19/25 Loc: [facility] Room: Type: DEP CLI Attending Dr: Eligio Soni MD Ordering [...] Soni MD,FACS,FSVS 03/24/2025 9:53 AM Dictation Location: [place] [address] Tech: Roya Gabriel Transcribed By: CIRO 03/24/25952 Dictated By: Eligio Soni MD 03/24/25952 Signed By: 03/24/25952 Normal [facility] Office Visiton 03-20-2025 Follow-up visit [id number] Dong Whitmore 1950 Date Provider Department Center 03/20/2025 MARY GRIFFIN CARD [facility] Family History Problem Relation Age of Onset Coronary artery disease Other Diabetes Other Family Status - Relation Status Age at Mother Father Other Level of Service:32838 ND OFFICE/OUTPATIENT ESTABLISHED MOD MDM 30 MIN Normal [facility] ED Pat Eduon 03-14-2025 ED Pat Edu ED [facility] Chronic Pain, Adult [...] skin (aromatherapy). Other treatments may include: ??? Kenq-hoi-lcdjlhk or prescription medicines. ??? Color, light, or sound therapy. ??? Local electrical stimulation. The electrical pulses help to relieve pain by temporarily stopping the nerve impulses that cause you to feel pain. ??? Injections. These deliver numbing or pain-relieving medicines into the spine or the area of pain. Medicines ??? Take nptc-ehf-xjsiwgr and prescription medicines only as told by your health care provider. ??? Ask your health care provider if the medicine prescribed to you: ? Requires you to avoid driving or using machinery. ? Can cause constipation. You may need to take these actions to prevent or treat constipation: ? Drink enough fluid to keep your urine pale yellow. ? Take ycmv-yrm-tkfbskz or prescription medicines. ? Eat foods that [...] the National Suicide Prevention Lifeline at or 134. This is open 24 hours a day. ??? Text the Crisis Text Line at 539082. This information is not intended to replace advice given to you by your health care provider. Make sure you discuss any questions you have with your health care provider. Document Revised: 05/17/2023 Document Reviewed: 04/19/2023 [employer] Patient Education ? 2023 [employer] Normal [facility] CBC w/ Auto Diffon 5 Basophil Absolute 0.0 E9/L Normal 0.0-0.[address] [facility] Comment on above: Performed By: #### 2 [id number] #### [facility] Laboratory [address] [place] [address] Basophils/100 WBC (Bld) 0.4 % Normal 0.0-2.[address] [facility] Comment on above: Performed By: #### 2 699151 #### [facility] [address] [place] [address] Eos Absolute 0.3 E9/L Normal 0.0-0.[address] [facility] Comment on above: Performed By: #### 2 119080 #### [facility] [address] [place] [address] Eosinophils/100 WBC (Bld) 3.6 % Normal 0.0-8.[address] [facility] Comment on above: Performed By: #### 2 [id number] #### [facility] [address] [place] [address] Erythrocyte distribution width (RBC) [Ratio] 14.9 % High 10.9-14.[address] [facility] Comment on above: Performed By: #### 2 632234 #### [facility] [address] [place] [address] Hematocrit (Bld) [Volume fraction] 38.9 % Normal 37.7-49.[address] [facility] Comment on above: Performed By: #### 2 672247 #### [facility] [address] [place] [address] Hemoglobin (Bld) [Mass/Vol] 13.2 g/dL Low 13.5-17.[address] [facility] Comment on above: Performed By: #### 2 669338 #### [facility] [address] [place] [address] Lymph Absolute 1.3 E9/L Normal 1.0-4.0 [facility] Comment on above: Performed By: #### 2 100453 #### [facility] [address] [place] [address] Lymphocytes/100 WBC (Bld) 16.0 % Normal 14.0-50.[address] [facility] Comment on above: Performed By: #### 2 805589 #### [facility] [address] [place] [address] MCH (RBC) [Entitic mass] 28.1 pg Normal 27.0-34.[address] [facility] Comment on above: Performed By: #### 2 431053 #### [facility] [address] [place] [address] MCHC (RBC) [Mass/Vol] 33.8 g/dL Normal 31.4-36.0 [facility] Comment on above: Performed By: #### 2 728673 #### [facility] [address] [place] [address] MCV (RBC) [Entitic vol] 83.2 fL Normal 80.0-100.[address] [facility] Comment on above: Performed By: #### 2 577836 #### [facility] [address] [place] [address] Webster Absolute 0.5 E9/L Normal 0.2-1.0 [facility] Comment on above: Performed By: #### 2 997352 #### [facility] [address] [place] [address] Monocytes/100 WBC (Bld) 6.7 % Normal 4.0-14.[address] [facility] Comment on above: Performed By: #### 2 658981 #### [facility] [address] [place] [address] Neutro Absolute 5.8 E9/L Normal 2.0-7.5 [facility] Comment on above: Performed By: #### 2 019998 #### [facility] [address] [place] [address] Neutro Auto 73.3 % Normal 36.0-75.[address] [facility] Comment on above: Performed By: #### 2 488092 #### [facility] [address] [place] [address] Platelet 216.0 E9/L Normal 150.0-500.[address] [facility] Comment on above: Performed By: #### 2 491179 #### [facility] [address] [place] [address] Platelet mean volume (Bld) [Entitic vol] 8.8 fL Normal 6.4-10.[address] [facility] Comment on above: Performed By: #### 2 925183 #### [facility] [address] [place] [address] RBC 4.7 E12/L Normal 4.3-5.[address] [facility] Comment on above: Performed By: #### 2 724082 #### [facility] [address] [place] [address] WBC 7.9 E9/L Normal 4.0-11.[address] [facility] Comment on above: Performed By: #### 2 669790 #### [facility] [address] [place] [address] CMPon 03-13-2025 Albumin [Mass/Vol] 4.2 g/dL Normal 3.3-5.[address] [facility] Comment on above: Performed By: #### 2 492995 #### [facility] [address] [place] [address] Albumin/Globulin [Mass ratio] 1.6 {ratio} Normal 1.1-2.[address] [facility] Comment on above: Performed By: #### 2 859775 #### [facility] [address] [place] [address] Alk Phos 86 Int._Unit/L Normal 21-98 [facility] Comment on above: Performed By: #### 2 169160 #### [facility] [address] [place] [address] ALT 33 Int._Unit/L Normal 6-46 [facility] Comment on above: Performed By: #### 2 [id number] #### [facility] [address] [place] [address] Anion gap [Moles/Vol] 13 mmol/L Normal 6-16 [facility] Comment on above: Performed By: #### 2 753308 #### [facility] [address] [place] [address] AST 29 Int._Unit/L Normal 5-43 [facility] Comment on above: Performed By: #### 2 846079 #### [facility] [address] [place] [address] Bili Total 0.5 mg/dL Normal 0.0-1.[address] [facility] Comment on above: Performed By: #### 2 761290 #### [facility] [address] [place] [address] BUN/Creat Ratio 22 No Units High 10-20 [facility] Comment on above: Performed By: #### 2 772315 #### [facility] [address] [place] [address] Calcium [Mass/Vol] 9.4 mg/dL Normal 8.9-11.[address] [facility] Comment on above: Performed By: #### 2 136409 #### [facility] [address] [place] [address] Chloride [Moles/Vol] 105 mmol/L Normal 101-111 [facility] Comment on above: Performed By: #### 2 967662 #### [facility] [address] [place] [address] CO2 [Moles/Vol] 23 mmol/L Normal 21-31 [facility] Comment on above: Performed By: #### 2 776155 #### [facility] [address] [place] [address] Creatinine [Mass/Vol] 1.2 mg/dL Normal 0.5-1.3 [facility] Comment on above: Performed By: #### 2 573536 #### [facility] [address] [place] [address] Globulin (S) [Mass/Vol] 2.7 g/dL Normal 1.4-4.[address] [facility] Comment on above: Performed By: #### 2 178247 #### [facility] [address] [place] [address] Glucose [Mass/Vol] 121 mg/dL Normal 55-[address] [facility] Comment on above: Performed By: #### 2 976400 #### [facility] [address] [place] [address] Potassium [Moles/Vol] 4.0 mmol/L Normal 3.5-5.3 [facility] Comment on above: Performed By: #### 2 587688 #### [facility] [address] [place] [address] Protein [Mass/Vol] 6.9 g/dL Normal 6.0-7.[address] [facility] Comment on above: Performed By: #### 2 605070 #### [facility] [address] [place] [address] Sodium [Moles/Vol] 137 mmol/L Normal 135-[address] [facility] Comment on above: Performed By: #### 2 217711 #### [facility] [address] [place] [address] Urea nitrogen [Mass/Vol] 26 mg/dL High 5-[address] [facility] Comment on above: Performed By: #### 2 351677 #### [facility] [address] [place] [address] [id number] 03-13-2025 HbA1c (Bld) [Mass fraction] 6.5 % High <=5.[address] [facility] Comment on above: Performed By: #### 7 [id number] #### [facility] [address] [place] [address] Lipid Panelon 03-13-2025 Cholesterol [Mass/Vol] 127 mg/dL Normal 120-[address] [facility] Comment on above: Performed By: #### 2 408801 #### [facility] [address] [place] [address] Cholesterol in HDL [Mass/Vol] 37 mg/dL Invalid Interpretation Code [facility] Comment on above: Result Comment: '>= 60 LOW RISK' '<= 40 HIGH RISK' Performed By: #### 2 452990 #### [facility] [address] [place] [address] Cholesterol in LDL [Mass/Vol] 62 mg/dL Normal <=[address] [facility] Comment on above: Performed By: #### 2 922190 #### [facility] [address] [place] [address] Cholesterol in VLDL [Mass/Vol] 43 mg/dL High 7-[address] [facility] Comment on above: Performed By: #### 2 826861 #### [facility] [address] [place] [address] Triglyceride [Mass/Vol] 213 mg/dL High <=[address] [facility] Comment on above: Performed By: #### 2 526923 #### [facility] [address] [place] [address] U MA/Cr Ratioon 03-13-2025 Microalb/Cr Ratio 32.8 mg/gm Cr High .0-30.0 [facility] Comment on above: Result Comment: 30-3 00 mg/g Cr indicates an increased risk for diabetic nephropathy. >300 mg/g Cr is consistent with clinical nephropathy. Performed By: #### 1 [id number] #### [facility] [address] [place] [address] U Creatinine 122.0 mg/dL Invalid Interpretation Code [facility] Comment on above: Performed By: #### 1 [id number] #### [facility] [address] [place] [address] U Microalb 4.0 mg/dL High 0.0-1.[address] [facility] Comment on above: Performed By: #### 1 [id number] #### [facility] [address] [place] [address] X-ray reportOrdered By: Jairo Castano on 03-13-2025 Study report [facility] Main [address] [address] XRay Report Signed Patient: Dong Whitmore MR#: [id number] : 1950 Acct:[id number] Age/Sex: 74 / M ADM Date: 5 Loc: XD Room: Type: [facility] Attending Dr: Marce Bowen APRN Copies [...] Castano M.D. 03/13/2025 5:49 PM Dictation Location: [place] [address] Transcribed By: [facility] 03/13/251748 Dictated By: Mert Castano DO 03/13/251747 Signed By: 03/13/25 174 [facility] XR lumbar spine 6V w bending on 03-13-2025 XR lumbar spine 6V w bending [facility] Main [place] [address] [place] [address] XRay Report Signed Patient: Dong Whitmore MR#: [id number] : 1950 Acct:[id number] Age/Sex: 74 / M ADM Date: 03/13/25 Loc: Room: Type: [facility] Attending Dr: Marce Bowen APRN Copies [...] Castano M.D. 03/13/2025 5:49 PM Dictation Location: [facility] Transcribed By: [facility] 03/13/251748 Dictated By: Mert Castano DO 03/13/251747 Signed By: 03/13/251748 Normal [facility] eGFRon 03-13-2025 eGFR 63 mL/min/1.73 m2 Normal >=[address] [facility] Comment on above: Performed By: #### 1 [id number] #### [facility] Laboratory [address] [place] [address] [facility] 03-12-20 Pending Sale To [facility] Case Information Case Priority: None Programs: -- Referral Source: Medical Center Representative Referral Reason: Disease management Case Type: Chronic Care Management Risk Score: -- Case Status: Active (March 11, 2025) Date Assigned: February 24, 2025 Assigned By: Conrad Yoon Date Enrolled: March 11, 2025 Assigned Primary Personnel: Conrad Yoon Assigned Secondary Personnel: -- Case Physician: Haider Hickman MD Ongoing Acquired absence of right great toe [...] neuropathy Complex renal cyst Coronary arteriosclerosis in [place] artery Dizziness Dizziness and giddiness Erythema of [...] mg= 1 tab(s), Oral, Daily Potassium Chloride (Ouq-Noud-Oij M20) 20 mEq oral tablet, extended release, [...] Multiple sclerosis (more content not included)... Normal [facility] Population Health Population Health Problems [...] neuropathy Complex renal cyst Coronary arteriosclerosis in [place] artery Dizziness Dizziness and giddiness Erythema of [...] mg= 1 tab(s), Oral, Daily Potassium Chloride (Ajt-Dirv-Nlf M20) 20 mEq oral tablet, extended release, [...] - Comments: - - Intervention Frequency Status Work Force Advisor Learn About Triggers, Prevention and Management - [...] - Comments: - - Intervention Frequency Status Work Force Advisor Learn About Home Safety to Prevent Falls or Injury - - Not done - - Review Educational Material - - Not done - - Use Cane When Walking - - Not done - - Take Breaks When Needed - - Not done - - Go (more content not included)... Normal [facility] Ambulatory Visit Summaryon 0 03-06-2025 Ambulatory Visit Summary Ambulatory Visit Summary DONG WHITMORE :1950 Visit Date:03/06/2025 Ambulatory Visit Instructions Your Diagnosis Fatty liver Calculus of gallbladder without cholecystitis without obstruction GERD (gastroesophageal reflux disease) Your Care Team Attending Physician - Candace SCHUSTER, Tomi Sheffield Primary Care Physician - Haider Hickman MD This Is Your Medications List Contact prescribing physician if questions or concerns Misc Prescription (Handicap Placard, 5 years.) acarbose (acarbose [...] 30 mg Tab) potassium chloride (Potassium Chloride (Hsi-Bxkm-Eqc M20) 20 mEq oral tablet, extended release) [...] Appointments 2024 8:40 AM EDT With: Where: [address] [address] 2024 8:00 AM EDT With: Where: [address] [address]- Monday 9:15 AM EDT With: LATRICIA SCHUSTER, Araceli Treadwell Where: [facility] [address], [address] [place] [address]- You Need to Schedule the Following Appointments Follow Up with Candace SCHUSTER, YFN Hatch, [facility] When: In 6 months Where: [address], [address] [facility] [address] [place] [phone] Medications What How Much When Why Instructions [...] stenosis Peripheral edema Handicap Placard, 5 years. Contact prescribing physician if questions or concerns Unchanged nitroglycerin (nitroglycerin 0 (more content not included)... Normal [facility] Gastroenterology Office/Clin ic Noteon 03-06-2025 [...] year of initiating therapy Length of therapy: -halfway, more data will be available in the future to help guide therapy 2. Calculus of gallbladder without cholecystitis without obstruction (K80.20: Calculus of gallbladder without cholecystitis without obstruction) Seen on US 11/02 3. GERD (gastroesophageal reflux disease) (K21.9: Gastro-esophageal reflux disease without esophagitis) IHelena, personally scribed for Tomi Maria on 03/06/2025 13:05:51. . We had a long discussion about the safety profile and the benefit and the risk of Rizdiffra, All questions and concerns were addressed, he will think about it and give us a call within a week Follow-up With When Contact Information Candace SCHUSTER, YFN Hatch, [facility] In 6 months [address], [address] [address] [phone] Additional Instructions: Problem List/Past Medical History Ongoing Acquired absence of right great toe 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 Acquired absence of third toe of right foot Allergic rhinitis Anticoagulated Balance problem Benign hypertension with chronic kidney disease, stage III Bilater (more content not included)... Normal [facility] Comment on above: Result Comment: Elec tronically Signed By: Tomi Maria MD\.br\Date and Time Signed: 03/06/25 13:18 EDT\.br\Electronically Co-Signed By: Helena Gomez MA\.br\Date and Time Co-Signed: 03/06/25 13:17 EDT Ambulatory Visit Summaryon 0 02-18-2025 Ambulatory Visit Summary Ambulatory Visit Summary DONG WHITMORE :1950 Visit Date:02/18/2025 Ambulatory Visit Instructions Your Diagnosis Coronary arteriosclerosis in [place] artery Type 2 diabetes mellitus with hyperlipidemia Pain in right toe(s) Calculus of gallbladder without cholecystitis without obstruction Diverticulosis of intestine, part unspecified, without perforation or abscess without bleeding SANTANA (nonalcoholic steatohepatitis) Hyperlipidemia, unspecified Your Care Team Attending Physician - Haider Hickman MD Primary Care Physician - Haider Hickman MD This Is Your Medications List [facility] Prescription (Eric Prather, 5 years.) acarbose (acarbose [...] 30 mg Tab) potassium chloride (Potassium Chloride (Obv-Rwtj-Ths M20) 20 mEq oral tablet, extended release) [...] Appointments 2024 8:40 AM EDT With: Where: [address] [address]- 2024 8:00 AM EDT With: Where: [address] [address]- Monday 9:15 AM EDT With: LATRICIA SCHUSTER, Araceli Treadwell Where: [facility] [address], [address] [place] [address]- You Need to Complete the Following CBC w/ Auto Diff, Blood, Routine collect, 02/18/25, Order for future visit, Lab Collect, Coronary arteriosclerosis in [place] artery Type 2 diabetes mellitus with hyperlipidemia, Not Required, Print Label By Order Location Comprehensive Metabolic Panel, Blood, Routine collect, 02/18/25, Order for future visit, Lab Collect, Coronary arteriosclerosis in [place] artery Type 2 diabetes mellitus with hyperlipidemia, Not Required, Print Label By Order Location HgbA1c, Blood, Routine collect, 02/18/25, Order for future visit, Lab Collect, Coronary arteriosclerosis in [place] artery Type 2 diabetes mellitus with hyperlipidemia, Required & Missing, Print Label By Order Location Lipid Panel, Blood, Routine collect, 02/18/25, Order for future visit, Lab Collect, Coronary arteriosclerosis in [place] artery Type 2 diabetes mellitus with hyperlipidemia, Required & Missing, Print Label By Order Location Microalbumin Level Urine, Urine, Routine collect, 02/18/25, Order for future visit, Nurse collect, Coronary arteriosclerosis in [place] artery Type 2 diabetes mellitus with hyperlipidemia, Not Required, Print Label By Order Location Urine Microalbumin/Creatini ne Ratio, Urine, Routine collect, 02/18/25, Order for future visit, Nurse collect, Coronary arteriosclerosis in [place] artery Type 2 diabetes mellitus with hyperlipidemia, Not Required, Print Label By Order Location Medications What How Much When Why Instructions Unchanged acarbose (acarbose 25 mg oral tablet) See instructions TAKE 2 TABLETS BY MOUTH 3 TIMES A DAY Unchanged aspirin (aspirin 81 mg Oral EC Tab) 1 Tablets By Mouth Every day Unchanged bu (more content not included)... Normal [facility] Family Medicine Office/Clini c Noteon 02-18-2025 Family Medicine Office/Clinic Note Family Medicine Office/Clinic Note Chief Complaint Persistent worsening of toe pain. HPI Staff 1m follow up Re-referred to PT @ [facility]- 3 more sessions, PT said he improved [...] Bowel sounds Assessment/Plan 1. Coronary arteriosclerosis in [place] artery (I25.10: Atherosclerotic heart disease of [place] coronary artery without angina pectoris) - No [...] Pain, Adult (more content not included)... Normal [facility] Comment on above: Result Comment: Elec tronically Signed By: Kristofer SCHUSTER, Haider Bee\.br\Date and Time Signed: 02/18/25 14:[address] Abdomen[facility]Pel[facility] Abdomen/Pelvis w/ + w/o Contrast [...] Darden MD Transcribed by: GREGORIO Technologist: SELMA Byrd [facility] CT Head or Brain w/o Contras [...] Signed by: Aydin Darden MD Transcribed by: DP Technologist: SB Normal [facility] Creatinineon 02-04-2025 Creatinine [Mass/Vol] 1.3 mg/dL Normal 0.5-1.[address] [facility] Comment on above: Performed By: #### 2 [id number] #### [facility] [address] [place] [address] eGFRon 02-04-2025 eGFR 57 mL/min/1.73 m2 Low >=[address] [facility] Comment on above: Performed By: #### 1 [id number] #### [facility] [address] [place] [address] 36on 01-21-2025 36 Regarding lab result s [...] and/or LE edema/weight gain. She verbalized understanding. [facility] Ambulatory Visit Summaryon 0 01-20-2025 Ambulatory [...] 30 mg Tab) potassium chloride (Potassium Chloride (Jme-Envc-Pbw M20) 20 mEq oral tablet, extended release) [...] to do next Scheduled Follow-Up Appointments Monday 1:40 PM EDT With: Kristofer SCHUSTER, Haider Bee Where: [address] [address]- 2024 8:40 AM EDT With: Where: [address] [address]- 2024 8:00 AM EDT With: Where: [address] [address]- Monday 9:15 AM EDT With: LATRICIA SCHUSTER, Araceli Treadwell Where: [facility] [address], [address] [place] [address]- You Need to Complete the Following CT [...] Someone Will Contact You Regarding These Appointments [facility] External Ambulatory Referral, Audiology, 01/20/25 9:54:00 EDT, Balance problem BPH with obstruction/lower urinary tract symptoms Benign hypertension with chronic kidney disease, stage III Calculus of gallbladder without cholecystitis without obstruction Complex renal cyst [facility] External Ambulatory Referral, ENT, 01/20/25 9:54:00 EDT, Balance problem BPH with obstruction/lower urinary tract symptoms Benign hypertension with chronic kidney disease, stage III Calculus of gallbladder without cholecystitis without obstruction Complex renal cyst Medications What How Much When Why Instructions Unchanged sitagliptin ( (more content not included)... Normal [facility] Family Medicine Office/Clini c Noteon [...] possible Rexulti script. Did see Nanette Barajas WINDOW CLEANER 12/04/24 due to Rt elbow pain. Given Medrol Dosepak. XR ordered. Completed 12/04/24. Discussed referral to ortho. Pt had fallen again & returned to ER 12/05/24. Did see [facility] pain management 01/13/25. Still having pain in [...] with current medications in outpatient record [id number] [facility] External Ambulatory Referral [facility] External Ambulatory Referral Influenza immunization status assessed [...] (N40.1: B (more content not included)... Normal [facility] Comment on above: Result Comment: [...] neuropathy Complex renal cyst Coronary arteriosclerosis in [place] artery Dizziness Dizziness and giddiness Erythema of [...] Heel spur....., H (more content not included)... [facility] Comment on above: Result Comment: Elec tronically Signed By: Tomi Maria MD\.br\Date and Time Signed: 01/17/25 12:33 EDT Reminderson [...] Caller Name: DONG WHITMORE; Caller Number: , Please remind me next week to make sure to send rezdiffra or not for this patient [facility] Ambulatory Visit Summaryon 0 01-01-2025 Ambulatory Visit [...] 30 mg Tab) potassium chloride (Potassium Chloride (Dzc-Vpyf-Waf M20) 20 mEq oral tablet, extended release) [...] With: Kristofer SCHUSTER, Haider Bee Where: [address] [address] 2024 8:00 AM EDT With: Where: [address] [address]- Monday 9:15 AM EDT With: LATRICIA SCHUSTER, Araceli Treadwell Where: [facility] [address], [address] [place] [address]- Medications What How Much When Why Instructions [...] Tab) Contact (more content not included)... Normal [facility] MR ELBOW RIGHT WITHOUT CONTR [...] on MonDec 20, 2024 9:22:13 AM EDT [facility] Comment on above: Order Comment: PT/FA X Injury/Trauma or Illness?:Illness/Other How long have you had these symptoms (acute/chronic)?:Chronic Reason for exam?:Right elbow pain Type of Exam?:Initial Additional signs and symptoms?:n Office Visiton 12-18-2024 Follow-up visit [id number] AdolfoDong blackman Boom 1950 M Date Provider Department [id number] Family History Problem Relation Age of Onset Coronary artery disease Other Diabetes Other Family Status - Relation Status Age at Other Level of Service:33689 ND OFFICE/OUTPATIENT ESTABLISHED MOD MDM 30 MIN Reason for Visit and Comments: Coronary Artery Disease [187] Hyperlipidemia [182] - Had routine labs with lipid panel in Oct 2024. Hypertension [923274] Pre-op Exam [001056] - Needs surgery clearance with Dr. Jasmine. Shortness of Breath [723528] - SOB worsening over the couple of months Normal [facility] Lab Miscellaneous-LCon 12-06 Lab Miscellaneous COMMENT Invalid Interpretation Code [facility] Comment on above: Result Comment: Test Ordered: [id number] Enhanced Liver Fibrosis (ELF) ELF(TM) Score 11.00 [...] J Hepatol. 2020 Apr;73(1):26-39. Performed at: [facility] [address] [id number] PhD Faye Ring Performed By: #### 1 [id number] #### [facility] [address] [place] [address] Ambulatory Visit Summaryon 0 12-04-2024 Ambulatory Visit Summary Ambulatory Visit Summary DONG WHITMORE :1950 Visit Date:12/04/2024 Ambulatory Visit Instructions Your Diagnosis Injury of right elbow Right elbow pain BMI 40.0-44.9, adult Non-smoker Your Care Team Attending Physician - Nanette Do Primary Care Physician - Haider Hickman MD This Is Your Medications List [facility] Prescription (Handeulaliop Yamilka, 5 years.) acarbose (acarbose [...] 30 mg Tab) potassium chloride (Potassium Chloride (Hmh-Zwrk-Eve M20) 20 mEq oral tablet, extended release) [...] Appointments Monday 9:00 AM EST With: Where: [facility] Services Monday 9:45 AM EDT With: Candace SCHUSTER, Tomi Sheffield Where: [facility] [address] [facility] [address] [place] [address]- Monday 10:00 AM EDT With: Kristofer SCHUSTER, Haider Bee Where: [address] [address] 2024 8:00 AM EDT With: Where: [address] [address]- Monday 9:15 AM EDT With: LATRICIA SCHUSTER, Araceli Treadwell Where: [facility] [address], [address] [place] [address]- Medications What How Much When Why Instructions New methylPREDNISolone (Medrol 4 mg Tab) 1 Packets By Mouth As Directed Injury of right elbow Right elbow pain BMI 40.0-44.9, adult Non-smoker Duration: 6 Days as directed on package labeling Pickup at [facility]/pharmacy #[id number] Unchanged acarbose (acarbose 25 mg oral tablet) [...] omega-3 polyunsaturate (more content not included)... Normal [facility] Family Medicine Office/Clini c Noteon 12-04-2024 [...] x ray. pt prefers to go to [facility]. will call him with results. medrol dose pack sent in. pt declines meloxicam or any other pain medication. encouraged him to use heat. he states ice is not helping at all. follow up with Dr. Hickman 2 weeks Ordered: methylPREDNISolone, = 1 packet(s), Oral, As Directed, as directed on package labeling, X 6 day(s), # 21 tab(s), Refills(s) 0, Pharmacy: [facility]/pharmacy #[id number], 168, cm, 12/04/24 13:51:00 EST, Height/Length Dosing, 122.9, kg, 12/04/24 13:51:00 EST, Weight Dosing 2. Right elbow pain (M25.521: Pain in right elbow) medrol dose pack Ordered: methylPREDNISolone, = 1 packet(s), Oral, As Directed, as directed on package labeling, X 6 day(s), # 21 tab(s), Refills(s) 0, Pharmacy: [facility]/pharmacy #[id number], 168, cm, 12/04/24 13:51:00 EST, Height/Length Dosing, 122.9, kg, 12/04/24 13:51:00 EST, Weight Dosing 3. BMI 40.0-44.9, adult (Z68.41: Body mass index [BMI] 40.0-44.9, adult) BMI education given Ordered: methylPREDNISolone, = 1 packet(s), Oral, As Directed, as directed on package labeling, X 6 day(s), # 21 tab(s), Refills(s) 0, Pharmacy: [facility]/pharmacy #[id number], 168, cm, 12/04/24 13:51:00 EST, Height/Length Dosing, 122.9, kg, 12/04/24 13:51:00 EST, Weight Dosing 4. Non-smoker (Z78.9: Other specified health status) continue not smoking Ordered: methylPREDNISolone, = 1 packet(s), Oral, As Directed, as directed on package labeling, X 6 day(s), # 21 tab(s), Refills(s) 0, Pharmacy: [facility]/pharmacy #[id number], 168, cm, 12/04/24 13:51:00 EST, Height/Length [...] neuropathy Complex renal cyst Coronary arteriosclerosis in [place] artery Dizziness Dizziness and giddiness Erythema of [...] (12/05/2016), y (more content not included)... Normal [facility] Comment on above: Result Comment: Elec tronically Signed By: Nanette Do\Date and Time Signed: 12/04/24 14:24 EST Lab Miscellaneous-LCon 12-04 Test Code [id number] Invalid Interpretation Code [facility] Comment on above: Performed By: #### 1 [id number] #### [facility] [address] [place] [address] Test Name ELF Invalid Interpretation Code [facility] Comment on above: Performed By: #### 1 [id number] #### [facility] [address] [place] [address] Nursing Narrative Noteon Nursing Narrative Note Nursing Narrative Note Unable to obtain accurate fibroscan d/t body habitus. Normal [facility] Ambulatory Visit Summaryon 0 11-27-2024 Ambulatory Visit Summary Ambulatory Visit Summary DONG WHITMORE Boom :1950 Visit Date:11/27/2024 Ambulatory Visit Instructions [...] 30 mg Tab) potassium chloride (Potassium Chloride (Yat-Hxua-Ejq M20) 20 mEq oral tablet, extended release) [...] Appointments Monday 9:00 AM EST With: Where: [facility] Services Monday 10:00 AM EDT With: Kristofer SCHUSTER, Haider Bee Where: [address] [address]24 8:00 AM EDT With: Where: [address] [address]- Monday 9:15 AM EDT With: LATRICIA SCHUSTER, Araceli Treadwell Where: [facility] [place] [address], [address] [place] [address]- You Need to Complete the Following Lab Miscellaneous-LC, Not Specified, Routine collect, ELF, 11/27/24, Order for future visit, Lab Collect, Fatty liver, Print Label By Order Location, [id number] Medications What How Much When Why Instructions [...] body ma (more content not included)... Normal [facility] Gastroenterology Office/Clin ic Noteon 11-27-2024 [...] NO ACUTE CHANGES US RUQ 10/22/24 @ [place]: IMPRESSION: 1. Cholelithiasis. 2. Mild fatty infiltration [...] 84.1 fL (12/29/23) Chloride: 108 mmol/L (09/09/24) Webster Absolute: 0.4 E9/L (12/29/23) CO2: 26 mmol/L (09/09/24) Webster Auto: 7.1 % (12/29/23) Creatinine: 1.3 mg/dL [...] neuropathy Complex renal cyst Coronary arteriosclerosis in [place] artery Dizziness Dizziness and giddiness Erythema of [...] urination Vitamin (more content not included)... Normal [facility] Comment on above: Result Comment: [...] Hickman MD This Is Your Medications List [facility] Prescription (Handicap Yamilka, 5 years.) acarbose (acarbose [...] 30 mg Tab) potassium chloride (Potassium Chloride (Ddj-Sryk-Lbz M20) 20 mEq oral tablet, extended release) [...] EST With: Candace SCHUSTER, Tomi Sheffield Where: [facility] [address] [facility] [address] [place] [address]- Monday 10:00 AM EDT With: Kristofer SCHUSTER, Haider Bee Where: [address] [address]24 8:00 AM EDT With: Where: [address] [address]- Monday 9:15 AM EDT With: LATRICIA SCHUSTER, Araceli Treadwell Where: [facility] [address], [address] [place] [address]- Medications What How Much When Why Instructions [...] Every day Unchanged potassium chloride (Potassium Chloride (Tcg-Yfiy-Rmj M20) 20 mEq oral tablet, extended release (more content not included)... Normal [facility] Family Medicine Office/Clini c Noteon [...] removal of the upper arm, which included bgdsldpxj-tg-buybrf mattress sutures. The area shows good signs [...] We reviewe (more content not included)... Normal [facility] Comment on above: Result Comment: [...] Hickman MD This Is Your Medications List [facility] Prescription (Eric Prather, 5 years.) acarbose (acarbose [...] 30 mg Tab) potassium chloride (Potassium Chloride (Yes-Xquu-Pyg M20) 20 mEq oral tablet, extended release) [...] EST With: Kristofer SCHUSTER, Haider Bee Where: [facility] [address] [address]- Monday 9:30 AM EST With: Tomi Maria MD Where: [facility] [address] [facility] [address] [place] [address]- Monday 10:00 AM EDT With: Kristofer SCHUSTER, Haider Bee Where: [place] [address] [place] [address] 2024 8:00 AM EDT With: Where: [place] [address] [place] [address]- Monday 9:15 AM EDT With: LATRICIA SCHUSTER, Araceli Treadwell Where: [facility] [address], [address] [place] [address]- Medications What How Much When Why Instructions [...] chlorid (more content not included)... Normal [facility] Family Medicine Office/Clini c Noteon 11-12-2024 Family Medicine Office/Clinic Note Family Medicine Office/Clinic Note Chief Complaint ER follow up The patient presents with dizziness in the morning and stiffness affecting mobility. HPI Staff Pt presents today for ER follow up. Hospital: [facility] Visit date: 11/09/2024 Symptoms the patient presented [...] symptoms persist, with continued evaluation by an corporate learning consultant pending referral completion. 3. Weakness (R53.1: Weakness) [...] musculoskeletal nee (more content not included)... Normal [facility] Comment on above: Result Comment: Elec tronically Signed By: Haider Hickman MD\.br\Date and Time Signed: 11/12/24 12:08 EST Ambulatory Visit Summaryon 0 11-04-2024 Ambulatory Visit Summary Ambulatory Visit Summary DONG WHITMORE :1950 Visit Date:11/04/2024 Ambulatory Visit Instructions Your Diagnosis Coronary arteriosclerosis in [place] artery Mixed hyperlipidemia Acquired absence of second [...] Hickman MD This Is Your Medications List [facility] Prescription (Eric Prather, 5 years.) acarbose (acarbose [...] 30 mg Tab) potassium chloride (Potassium Chloride (Tpx-Bofb-Gra M20) 20 mEq oral tablet, extended release) [...] With: Kristofer SCHUSTER, Haider Bee Where: [address] [address] 2024 8:00 AM EDT With: Where: [address] [address]- Monday 9:15 AM EDT With: Araceli BERMUDEZ MD Where: [facility] [address], [address] [place] [address]- Medications What How Much When [...] Every day Unchanged potassium chloride (Potassium Chloride (Xso-Mcuh-Vns M20) 20 mEq oral tablet, ex (more content not included)... Normal [facility] Family Medicine Office/Clini c Noteon [...] and sporadic. The underlying coronary arteriosclerosis in [place] arteries, benign hypertension with chronic kidney disease, [...] cholelithiasis present Assessment/Plan 1. Coronary arteriosclerosis in [place] artery (I25.10: Atherosclerotic heart disease of [place] coronary artery without angina pectoris) Diet and exercise. No CP at this time. 2. Mixed hyperlipidemia (E78.2: Mixed hyperlipidemia) Continue on statins as before. 3. Long-term insulin use (Z79.4: halfway (current) use of insulin) Continue on Insulin. [...] an i (more content not included)... Normal [facility] Comment on above: Result Comment: Elec tronically Signed By: Kristofer SCHUSTER, Haider Bee\.br\Date and Time Signed: 11/04/24 11:42 EST U Microalbon 10-24-2024 Albumin DL <= 20 mg/L (U) [Mass/Vol] 4.0 mg/dL High 0.0-1.[address] [facility] Comment on above: Performed By: #### 1 [id number] ####[facility] [address] [place] [address] Ambulatory Visit Summaryon 0 10-15-2024 Ambulatory Visit [...] Hickman MD This Is Your Medications List [facility] Prescription (Eric Ochoalizzie, 5 years.) acarbose (acarbose 25 mg [...] 30 mg Tab) potassium chloride (Potassium Chloride (Css-Bfen-Tzh M20) 20 mEq oral tablet, extended release) [...] 2024 10:40 AM EST With: Where: [address] [address] 2024 10:30 AM EST With: Kristofer SCHUSTER, Haider Bee Where: [address] [address] 2024 8:00 AM EDT With: Where: [address] [address]- Monday 9:15 AM EDT With: LATRICIA SCHUSTER, Araceli Treadwell Where: [facility] [address], [address] [place] [address]- Medications What How Much When Why Instructions [...] 1 Tablets (more content not included)... Normal [facility] Family Medicine Office/Clini c Noteon [...] Diff Comprehe (more content not included)... Normal [facility] Comment on above: Result Comment: Elec tronically Signed By: Kristofer SCHUSTER, Haider Bee\.br\Date and Time Signed: 10/15/24 13:10 EST CMPon 09-10-2024 Albumin [Mass/Vol] 4.3 g/dL Normal 3.3-5.[address] [facility] Comment on above: Performed By: #### 2 [id number] #### [facility] [address] [place] [address] Albumin/Globulin (S) [Mass conc ratio] 1.7 Normal 1.1-2.[address] [facility] Comment on above: Performed By: #### 2 [id number] #### [facility] [address] [place] [address] ALP [Catalytic activity/Vol] 73 Int._Unit/L Normal 21-[address] [facility] Comment on above: Performed By: #### 2 [id number] #### [facility] [address] [place] [address] ALT No additional P-5'-P [Catalytic activity/Vol] 23 Int._Unit/L Normal 6-[address] [facility] Comment on above: Performed By: #### 2 [id number] #### [facility] [address] [place] [address] Anion gap [Moles/Vol] 12 mmol/L Normal 6-16 [facility] Comment on above: Performed By: #### 2 [id number] #### [facility] [address] [place] [address] AST [Catalytic activity/Vol] 25 Int._Unit/L Normal 5-[address] [facility] Comment on above: Performed By: #### 2 [id number] #### [facility] [address] [place] [address] Bilirubin [Mass/Vol] 0.5 mg/dL Normal 0.0-1.1 [facility] Comment on above: Performed By: #### 2 [id number] #### [facility] [address] [place] [address] Calcium [Mass/Vol] 9.2 mg/dL Normal 8.9-11.[address] [facility] Comment on above: Performed By: #### 2 [id number] #### [facility] [address] [place] [address] Chloride [Moles/Vol] 108 mmol/L Normal 101-111 [facility] Comment on above: Performed By: #### 2 [id number] #### [facility] [address] [place] [address] CO2 [Moles/Vol] 26 mmol/L Normal 21-31 [facility] Comment on above: Performed By: #### 2 [id number] #### [facility] [address] [place] [address] Creatinine [Mass/Vol] 1.3 mg/dL Normal 0.5-1.3 [facility] Comment on above: Performed By: #### 2 [id number] #### [facility] [address] [place] [address] Globulin (S) [Mass/Vol] 2.5 g/dL Normal 1.4-4.[address] [facility] Comment on above: Performed By: #### 2 [id number] #### [facility] [address] [place] [address] Glucose [Mass/Vol] 137 mg/dL Normal 55-[address] [facility] Comment on above: Performed By: #### 2 [id number] #### [facility] [address] [place] [address] Potassium [Moles/Vol] 4.7 mmol/L Normal 3.5-5.3 [facility] Comment on above: Performed By: #### 2 [id number] #### [facility] [address] [place] [address] Protein [Mass/Vol] 6.8 g/dL Normal 6.0-7.[address] [facility] Comment on above: Performed By: #### 2 [id number] #### [facility] [address] [place] [address] Sodium [Moles/Vol] 141 mmol/L Normal 135-[address] [facility] Comment on above: Performed By: #### 2 [id number] #### [facility] [address] [place] [address] Urea nitrogen [Mass/Vol] 28 mg/dL High 5-[address] [facility] Comment on above: Performed By: #### 2 [id number] #### [facility] [address] [place] [address] Urea nitrogen/Creatinine [Mass ratio] 22 No Units High 10-[address] [facility] Comment on above: Performed By: #### 2 [id number] #### [facility] [address] [place] [address] Magnesiumon 09-10-2024 Magnesium [Mass/Vol] 1.8 mg/dL Normal 1.3-2.4 [facility] Comment on above: Performed By: #### 2 [id number] #### [facility] [address] [place] [address] eGFRon 09-10-2024 eGFR 57 mL/min/1.73 m2 Low >=[address] [facility] Comment on above: Performed By: #### 1 [id number] #### [facility] [address] [place] [address] Family Medicine Office/Clini c Noteon 09-09-2024 Family [...] involvement and proprioceptive complications. Consider assessment at [facility] for balance and gait evaluation. Discuss [...] manage morbid obesity. Possible consultation with a wire spring relay adjuster for weight management strategies. Ordered: Body Mass [...] is fro (more content not included)... Normal [facility] Comment on above: Result Comment: Elec tronically Signed By: Haider Hickman MD\.br\Date and Time Signed: 09/09/24 15:07 EST 36on 09-03-2024 36 Confirmed with Kat, the BP readings at end of report were from the new BP monitor and his BP in office compared to his new cuff was 130s/70s. Based off of the other readings, recommend switching his metoprolol to carvedilol, start at 6.25mg BID. Follow-up 2-3 months. THanks [facility] Ambulatory Visit Summaryon 1 10-15-2023 Ambulatory [...] Hickman MD This Is Your Medications List [facility] Prescription (Eric Prather, 5 years.) acarbose (acarbose [...] 30 mg Tab) potassium chloride (Potassium Chloride (Ozo-Yefj-Lfq M20) 20 mEq oral tablet, extended release) [...] EST With: Kristofer SCHUSTER, Haider Bee Where: [address] [place] [address]- 2024 8:00 AM EDT With: Where: [facility] [place] [address] [place] [address]- Monday 9:15 AM EDT With: LATRICIA SCHUSTER, Araceli Treadwell Where: [facility] [address] [place] [address]- Medications What How Much When Why Instructions [...] Every day Unchanged potassium chloride (Potassium Chloride (Oep-Wqnx-Ftz M20) 20 mEq oral tablet, extended release) 1 Tablets By Mouth Every day Unchanged pregabalin (Lyrica 75 mg Cap) 1 Capsules By Mouth 2 times a day Unchanged simvastatin (simvastatin 40 mg Tab) 1 Tablets (more content not included)... Normal [facility] Family Medicine Office/Clini c Noteon [...] # 60 cap(s), Refills(s) 1, Pharmacy: [facility]/pharmacy #[id number], 169, cm, 08/15/24 10:34:00 EST, Height/Length [...] interactions b (more content not included)... Normal [facility] Comment on above: Result Comment: Elec tronically Signed By: Kristofer SCHUSTER, Haider Sandhu.cyrus\Date and Time Signed: 08/15/24 11:26 EST CNOVon 08-14-2024 CNOV Office Visit (NPRC21 ) DONG WHITMORE ([id number]) 1950 M Date Time Provider Department 08/14/24 10:00 AM CHIQUI ROBLES NPRC21 During your visit today, we recorded the following information about you: Pulse Respiration Blood pressure Weight 59/minute 16/minute 137/69 117.2 kg Claudia Chilel MD 08/14/2024 10:51 AM Signed THE [facility] [place] for Comprehensive Pain Recovery Neurological [place] August 14, 2024 This is a face [...] Chiqui Robles MD 08/26/2024 4:34 PM Addendum [facility] STAFF PHYSICIAN NOTE OF PERSONAL [...] - psychotherapy was utilized during the visit. Tqij-gh-zslt time: 75472 (16-37 mins) actual time spend in psychotherapy 18 minutes Type of therapeutic intervention:Supporti ve Target symptoms: Pain coping skills and Acceptance and adapting Progress/Session notes:processing Interactive Complexity: None STAFF PHYSICIAN:: Chiqui Robles MD DATE of SERVICE: 08/14/2024 Referring Provider: CHIQUI ROBLES [[id number]] Allergies As of Date: 08/14/2024 Noted Allergy [...] [E66.813, E66.01, Z68.41] Order(s):PROVIDER ORDERED FOLLOW UP [[id number]] Order #: [id number]: 1 Prescriptions as of 08/26/2024 - pregabalin (LYRICA) 75 mg capsule Take 75 mg by mouth two times a day. - memantine (NAMENDA) (more content not included)... Normal [facility] Office Visiton 08-07-2024 Follow-up visit [id number] Dong Whitmore 1950 M Date Provider Department Center 08/07[id number] Family History Problem Relation Age of Onset Coronary artery disease Other Diabetes Other Family Status - Relation Status Age at Other Level of Service:87692 ND OFFICE/OUTPATIENT ESTABLISHED MOD MDM 30 MIN Reason for Visit and Comments: Hypertension [023905] - He brought BP log from home with him today. Readings are usually in the 130-140's systolic. Hyperlipidemia [182] Coronary Artery Disease [187] - Denies chest pain and SOB. Normal [facility] Ambulatory Visit Summaryon 1 Ambulatory Visit Summary Ambulatory Visit Summary DONG WHITMORE:1950 Visit Date:08/01/2024 Ambulatory Visit Instructions Your Diagnosis [...] 30 mg Tab) potassium chloride (Potassium Chloride (Tux-Lfap-Kua M20) 20 mEq oral tablet, extended release) [...] EST With: Haider Hickman MD Where: [address] [address]- Monday 3:30 PM EST With: Haider Hickman MD Where: [address] [address]- 2024 8:00 AM EDT With: Where: [address] [id number]- Monday 9:15 AM EDT With: LATRICIA SCHUSTER, Araceli Treadwell Where: [facility] [address], [address] [place] [address]- Someone Will Contact You Regarding These Appointments [facility] External Ambulatory Referral, Neurology, 08/01/24 12:15:00 EDT, Suicidal ideation Unspecified mononeuropathy of right lower limb BMI 40.0-44.9, adult Morbid obesity with body mass index (BMI) of 40.0 or higher Nonsmoker Medications What How Much When Why Instructions New pregabalin (Lyrica 75 mg Cap) 1 Capsules By Mouth 2 times a day Pickup at [facility]/pharmacy #0912 Changed tizanidine (tiZANidine 4 mg Tab) 4 Milligram By Mouth Every 8 hours Pickup at [facility]/pharmacy #6177 Changed venlafaxine (venlafaxine 75 mg Tab) 1 Tablets By Mouth 2 times a day Pickup at [facility]/pharmacy #6177 Unchanged acarbose (acarbose 25 mg oral [...] 1 Table (more content not included)... Normal [facility] Family Medicine Office/Clini c Noteon 08-01-2024 Family Medicine Office/Clinic Note Family Medicine Office/Clinic Note Chief Complaint The patient reports persistent neuropathic pain primarily affecting the right foot. HPI Staff Dong is a 73 year old male presenting for acute visit Acute: foot and back pain, foot dr recommended f/u with PCP Foot dr won't do anything for his foot pain [...] E&M of Est. Patient High 40-54 Min 47247 [facility] External Ambulatory Referral Prolonged OV 15 min 04145 2. Unspecified mononeuropathy of right lower limb [...] E&M of Est. Patient High 40-54 Min 46171 [facility] External Ambulatory Referral Prolonged OV 15 min 96866 3. BMI 40.0-44.9, adult (Z68.41: Body mass index [BMI] 40.0-44.9, adult) Discussed the importance of lifestyle changes, including dietary modifications and physical activity, to manage BMI. Addressed the potential contributions of morbid obesity to peripheral neuropathic symptoms. Ordered: Body Mass Index (BMI) documented 3008F Current tobacco non-user 1036F Depression Screening Positive 3354F E&M of Est. Patient High 40-54 Min 46708 Fall Risk Screen 2 or more w/injury 1100F [facility] External (more content not included)... Normal [facility] Comment on above: Result Comment: [...] other machine again): L sitting 175/112 Normal [facility] Telephoneon 07-23-2024 Telephone [id number] Dong Whitmore 1950 M Date Provider Department [facility] Family History Problem Relation Age of Onset Coronary artery disease Other Diabetes Other Family Status - Relation Status Age at Other Normal [facility] Office Visiton 07-19-2024 Follow-up visit [id number] Dong Whitmore 1950 M Date Provider Department Center 07/19/2024 3848-ELA[facility]ER [facility] Family History Problem Relation Age of Onset Coronary artery disease Other Diabetes Other Family Status - Relation Status Age at Other Level of Service:59141 ND OFFICE/OUTPATIENT ESTABLISHED MOD MDM 30 MIN Normal [facility] Ambulatory Visit Summaryon 1 Ambulatory Visit Summary [...] 30 mg Tab) potassium chloride (Potassium Chloride (Yvt-Qthl-Ded M20) 20 mEq oral tablet, extended release) [...] EST With: Haider Hickman MD Where: [address] [address]- Monday 10:30 AM EST With: Araceli BERMUDEZ MD Where: [facility] [address], [address] [place] [address]- 2024 8:00 AM EDT With: Where: [address] [address]- Monday 9:15 AM EDT With: Araceli BERMUDEZ MD Where: [facility] [address], [address] [place] [address]- You Need to Schedule the Following Appointments Follow Up with LATRICIA SCHUSTER, PADMA Briceño When: Where: [address] [facility] [place] [address]- Medications What How Much When Why Instructions Unchanged sodium bicarbonate (sodium bicarbonate 650 mg Tab) 2 Tablets By Mouth 3 times a day Duration: 90 Days Pickup at [facility]/pharmacy #0644 Unchanged acarbose (acarbose 25 mg oral tablet) [...] years.) Se (more content not included)... Normal [facility] Urology Office/Clinic Noteon 07-17-2024 Urology [...] RPG, R ESWL 01/04/24. Renal US 01/24/24 [facility] - neg limited [...] with voice recognition artificial intelligence software, specifically Vay[employer], Tzee and or [employer]. Substitutions may have occurred due to the [...] RPG, R ESWL 01/04/24. Renal US 01/24/24 [facility] - neg limited [...] MD, URL [address] [place] [id number]- Additional Instructions: 1 year w/ renal US Patient Education Dietary Guidelines to Help Prevent Kidney Stones I, Roya Álvarez, personally scribed for Dr. Bermudez on 07/17/2024 10:05:06 (more content not included)... Normal [facility] Comment on above: Result Comment: Elec tronically Signed By: Araceli BERMUDEZ MD\.br\Date and Time Signed: 07/17/24 10:09 EDT\.br\Electronically Co-Signed By: Roya Álvarez\.br\Date and Time Co-Signed: 07/17/24 10:05 EDT Office Visiton 06-26-2024 Follow-up visit [id number] Dong Whitmore 1950 M Date Provider Department Center 06/26/2024 [facility] GRIFFIN [facility] Family History Problem Relation Age of Onset Coronary artery disease Other Diabetes Other Family Status - Relation Status Age at Other Level of Service:00464 ND OFFICE/OUTPATIENT ESTABLISHED MOD MDM 30 MIN Reason for Visit and Comments: Coronary Artery Disease [187] Hypertension [292166] Normal [facility] XR Foot - right 3 Viewson Imaging Result: [facility] Radiology Study observation (narrative) [facility] No Panel Informationon 06-12 Chelle Barndon NP 06/12/2024 9:40 AM L Inj/Asp: L [...] in the usual sterile fashion. [facility] CNOVon 04-24-2024 CNOV Office Visit (NPRC21 ) DONG WHITMORE ([id number]) 1950 M Date Time Provider Department 04/24/24 9:00 AM CHIQUI ROBLES NPRC21 During your visit today, we recorded the following information about you: Pulse Blood pressure Weight Height 61/minute 122/89 122.5 kg 1.702 m Parish Rios MD 04/24/2024 11:26 AM Signed THE [facility] for Comprehensive Pain Recovery Neurological [place] April 24, 2024 This is a face [...] Desimir, MD 04/24/2024 11:26 AM Signed [facility] STAFF PHYSICIAN NOTE OF PERSONAL [...] - psychotherapy was utilized during the visit. Ahnu-px-miuj time: 65846 (16-37 mins) actual time spend in psychotherapy [...] which included preparing to see the patient, pqpd-xs-tmns patient care, completing clinical documentation, performing a medically appropriate examination, and counseling and educating the patient/family/caregi naren. As noted, the patient's clinical situation is complex and serious with significant comorbidity of pain and functional limitations. This requires higher levels of time, intensity, and expense with longitudinal care and support. STAFF PHYSICIAN:: Chiqui Robles MD DATE of SERVICE: 04/24/2024 Referring Provider: HERBERTH ARAUJO [[id number]] Allergies As of Date: 04/24/2024 Noted Allergy [...] TO [facility] (CHRONIC PAIN) [[id number]] Order #: [id number]: 1 PAIN RECOVERY FOLLOW UP ORDER [[id number]] Order #: [id number]: 1 FUTURE PROVIDER ORDERED FOLLOW UP [[id number]] Order #: [id number]: 1 FUTURE memantine (NAMENDA) 5 mg tabletTake 1 tablet by mouth once daily.Disp: 30 tabletRfl: 3 CONSULT TO KETAMINE FOR CHRONIC PAIN [9044] Order #: [id number]: 1 FUTURE Prescriptions as of 04/24/2024 - memantine (NAMENDA) 5 mg tablet Take 1 tablet by mouth once daily. - aspirin, enteric coated (ASPIRIN, ENTERIC COATED) 81 mg EC tablet Take 81 mg by mouth once daily. - fi (more content not included)... Normal [facility] BRIEF OP NOTon 04-03-2024 BRIEF OP NOT HNO ID: [id number] Author: CAPRICE DOWNING MD Service: Pain Management Author Type: Fellow Type: Brief Op Note Filed: 04/03/2024 10:35 Note Text: BRIEF OPERATIVE / PROCEDURE NOTE LOG ID: [id number] SURGERY/PROCEDURE DATE: 04/03/2024 PROCEDURE START TIME: 0959 PROCEDURE END TIME: 1030 PRE-OP/PRE-PROCEDURE DIAGNOSIS: Chronic toe pain, right foot [M79.674, G89.29] Complex regional pain syndrome type II of right lower limb [G57.71] POST-OP/POST-PROCEDUR E DIAGNOSIS: Chronic toe pain, right foot [M79.674, G89.29] Complex regional pain syndrome type II of right lower limb [G57.71] SURGEON(S)/PROCEDURAL IST(S) AND PROPERTY PRESERVATION SPECIALIST(S): Surgeon(s) and Role: * Herberth Araujo MD, PhD - Primary * Caprice Downing MD No Additional Staff SURGERY/PROCEDURE(S): Attempted Right L4 and L5 Dorsal Root Ganglion Stimulator ANESTHESIA: Anxiolysis and Local anesthetic FINDINGS: None ESTIMATED BLOOD LOSS: Minimal SPECIMENS: None COMPLICATIONS: None Caprice Downing MD Pain Medicine Fellow April 03, 2024 Normal [facility] NURSING PROGon 04-03-2024 NURSING PROG HNO ID: [id number] Author: CAYETANO ROSALES RN Service: Nursing Author Type: Registered Nurse Type: Nursing Progress Note Filed: 04/08/2024 15:32 Note Text: Summary: Follow up phone call Follow up phone call made regarding outcome of procedure. No answer voicemail left - The patient was instructed to call [phone] with the percentage of pain relief and what activities have improved. [employer] message also sent. [facility] NURSING PROG HNO ID: [id number] Author: SURINDER LARES RN Service: Nursing Author Type: Registered Nurse Type: Nursing Progress Note Filed: 04/09/2024 10:09 Note Text: Summary: Post Procedure Call Patient left voice mail. Team was unable to finish procedure due to patient was unable to stay still. No pain relief noted. Surinder Lares RN April 09, 2024 [facility] NURSING PROG HNO ID: [id number] Author: EMILEE HYDE, DENISE Service: ? Author Type: Registered Nurse Type: Nursing Progress Note Filed: 04/03/2024 10:45 Note Text: Dr. Marain Downing (fellow) discusses reason why procedure was aborted today. Other options for pain management was discussed with patient and . Normal [facility] OPERATIVE NOon 04-03-2024 OPERATIVE NO HNO ID: [id number] Author: HERBERTH ARAUJO MD, PhD Service: Pain Management Author Type: Physician Type: Operative Report Filed: 04/03/2024 20:14 Note Text: OPERATIVE/PROCEDURE REPORT : LOG ID: [id number] SURGERY/PROCEDURE DATE: 04/03/2024 INCISION/PROCEDURE START TIME: 9:59 [...] Dorsal Root Ganglion Stimulator SURGEON(S)/PROCEDURAL IST(S) AND PROPERTY PRESERVATION SPECIALIST(S): Surgeon(s) and Role: * Herberth Araujo [...] program. ELECTRONIC SIGNATURE, Herberth Araujo MD, PhD [facility] HISTORY PHYSICALon HISTORY PHYSICAL HNO ID: [id number] Author: HERBERTH ARAUJO MD, PhD Service: Pain Management Author Type: Physician Type: H&P Filed: 04/03/2024 09:33 Note Text: PROCEDURE EVALUATION AND HISTORY AND PHYSICAL EXAM SUBJECTIVE: Dong Whitmore is a 73 year old man who presents to [facility] for Right L4 and L5 Dorsal Root Ganglion Stimulator Trial. This is his first (1) procedure. Focused Review of Systems: PAIN: Denies any contraindications to the procedure including coagulopathy, infection, recent cerebral/myocardial infarct, and hemodynamic instability. 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 Current Outpatient Medications Medication [...] the patient's condition since the last [facility] visit: No Provisional Diagnosis: Chronic toe pain, right foot [M79.674, G89.29] Complex regional pain syndrome type II of right lower limb [G57.71] Planned Procedure: Right L4 and L5 Dorsal Root Ganglion Stimulator Trial Caprice Downing MD Pain Medicine Fellow April 03, 2024 Herberth Araujo MD, PhD [facility] NURSING PROGon 04-01-2024 NURSING PROG HNO ID: [id number] Author: HELENA BAUTISTA RN Service: ? Author [...] 2 hours before the appointment. 2. A truck driver supervisor must be present who can drive you home. If you are coming by medical transport, you must have a responsible person other than the transport conductor with you. 3. Do you take any [...] or cannot make the appointment by calling [phone] (Option 2). Normal [facility] CNPCynthia 03-19-2024 CNPN Telephone (PAINMN) DONG WHITMORE ([id number]) 1950 M Date Time Provider Department 03/19/24 HERBERTH ARAUJOMN During your visit today, we recorded the following information about you: Emilee So RN 03/19/2024 1:32 PM Signed Spoke with patient at request of associate professor of physics as patient has questions about referral to infectious disease. Patient states that he spoke with his PCP, Dr. Hickman ([phone]) who spoke with Dr. Vega in Infectious [...] obesity with serious comorbidity* Encounter Status:Closed by EMILEE SO on 03/21/24 Normal [facility] BMPon 03-08-2024 Anion gap [Moles/Vol] 14 mmol/L Normal 6-16 [facility] Comment on above: Performed By: #### 2 [id number] #### [facility] [address] [place] [address] Calcium [Mass/Vol] 9.4 mg/dL Normal 8.9-11.[address] [facility] Comment on above: Performed By: #### 2 404018 #### [facility] [address] [place] [address] Chloride [Moles/Vol] 104 mmol/L Normal 101-111 [facility] Comment on above: Performed By: #### 2 [id number] #### [facility] [address] [place] [address] CO2 [Moles/Vol] 24 mmol/L Normal - [facility] Comment on above: Performed By: #### 2 238796 #### [facility] [address] [place] [address] Creatinine [Mass/Vol] 1.5 mg/dL High 0.5-1.3 [facility] Comment on above: Performed By: #### 2 443561 #### [facility] [address] [place] [address] Glucose [Mass/Vol] 109 mg/dL Normal 55-[address] [facility] Comment on above: Performed By: #### 2 [id number] #### [facility] [address] [place] [address] Potassium [Moles/Vol] 4.2 mmol/L Normal 3.5-5.3 [facility] Comment on above: Performed By: #### 2 [id number] #### [facility] [address] [place] [address] Sodium [Moles/Vol] 138 mmol/L Normal 135-[address] [facility] Comment on above: Performed By: #### 2 616212 #### [facility] [address] [place] [address] Urea nitrogen [Mass/Vol] 26 mg/dL High 5-[address] [facility] Comment on above: Performed By: #### 2 339923 #### [facility] [address] [place] [address] Urea nitrogen/Creatinine [Mass ratio] 17 No Units Normal 10-[address] [facility] Comment on above: Performed By: #### 2 [id number] #### [facility] [address] [place] [address] [id number] 03-08-2024 HbA1c (Bld) [Mass fraction] 6.5 % High <=5.[address] [facility] Comment on above: Performed By: #### 7 [id number] #### [facility] [address] [place] [address] eGFRon 03-08-2024 eGFR 48 mL/min/1.73 m2 Low >=[address] [facility] Comment on above: Order Comment: Order added by Discern Expert. Performed By: #### 1 [id number] #### [facility] [address] [place] [address] OV 02-29-2024 CNOV Office Visit (PAINMN ) DONG WHITMORE ([id number]) 1950 M Date Time Provider Department 02/29/24 1:30 PM HERBERTH ARAUJO PAINMN During your visit today, we recorded the following information about you: Temperature Pulse Blood pressure Weight 97.4 degrees 62/minute 138/73 122.5 kg Height 1.702 m Herberth Araujo MD, PhD 03/18/2024 7:05 PM Signed [facility] New Patient Consultation Referring Physician: SELF Chief Complaint: Right third toe pain SUBJECTIVE: Dong Whitmore is a 73 year old male with a pertinent past medical history of diabetes who presents to [facility] for the evaluation of right third toe pain. 15-year history of right third toe pain. He notes that over this time the pain has become increasingly severe has caused him significant discomfort and suffering. He has been to many specialists in the [facility]-over the course of the past [...] pe (more content not included)... Normal [facility] CNPNon 02-06-2024 CNPN Telephone (PAMAVN) DONG WHITMORE ([id number]) 1950 M Date Time Provider Department 02/06/24 FRANCOISE SINGLETARY During your visit today, we recorded the following information about you: Lela Hyatt RN 02/06/2024 10:46 AM Signed ----- Message from Francoise Singletary MD sent at 02/05/2024 3:12 PM EDT ----- Do you mind calling him and giving him the number to schedule at [facility] to discuss DRG? I'd suggest seeking an appointment with the following doctors who perform DRG implantation: Dr. Carlisle, Dr. Araujo, Dr. Dan, Dr. Moo Heard and Dr. Kamara may do DRG - I'm not sure. Thanks Lela! ----- Message ----- From: Livia Lester PA-C Sent: 02/05/2024 2:07 PM EDT To: Francoise Singletary MD No one on this side of [facility] that I know of does DRG so, we also send to [facility] I would just have Lela call [...] I know who do DRG are at [facility]. How do we refer him there? [...] Status:Closed by LELA HYATT on 02/06/24 Normal [facility] Ksenia 02-05-2024 CNOV Office Visit (DENICE ) DONG WHITMORE ([id number]) 1950 M Date Time Provider Department 02/05/24 11:30 AM FRANCOISE SINGLETARY During your visit today, we recorded the following information about you: Pulse Blood pressure Weight 80/minute 131/70 124.7 kg Francoise Singletary MD 02/05/2024 3:14 PM Signed [facility] Consultation Date: February [...] The patient has seen other pain providers. [facility] Neurology OV 02/01/22 Assessment and Plan [...] old (more content not included)... Normal [facility] A1C with Estimated Average G piercestephanie 09-11-2023 HbA1c (Bld) [Mass fraction] 6.900 % High 4.3-5.6 % [employer] Other HbA1c (Bld) [Mass fraction] 151 mg/dL [employer] Other Glucose - FINGER STICKon Glucose [Mass/Vol] 138 mg/dL [employer] Other Glucose mean value [Mass/vol ume] in Blood Estimated from glycated hemoglobinOrdered By: Aldo Middleton on 09-11-2023 Average glucose Estimated from glycated hemoglobin (Bld) [Mass/Vol] 151 mg/dL [facility] Hemoglobin A1c percentageOrd ered By: Aldo Middleton on 09-11-2023 HbA1c (Bld) [Mass fraction] 6.9 % 4.3-5.6 [facility] Comment on above: Increased risk for d iabetes: 5.7 - 6.4diabetes: >6.4glycemic control for adults with diabetes: <7.0 A1C HEMOGLOBINon 02-14-2023 HbA1c (Bld) [Mass fraction] 7.6 % [employer] Other Glucose - FINGER STICKon Glucose [Mass/Vol] 215 mg/dL [employer] Other HbA1c (Bld) [Mass fraction]o n 02-14-2023 A1C HEMOGLOBIN [facility] [employer] Other ECHOCARDIO M/2D COMPLETEon 0 12-30-2022 ECHOCARDIO M/2D COMPLETE Patient: DONG WHITMORE Exam Date: 12/30/2022 : 1950 Gender:M Ordering : [facility] Admission #: [id number] Family : Order #: [id number] CLICK HERE TO VIEW EXAM ECHOCARDIOGRAM REPORT [...] Jesus Thibodeaux M.D. on 12/30/2022 at 18:49 [facility] STRESS/REST MULTIon 12-29 PR STRESS/REST MULTI Patient: DONG WHITMORE Exam Date: 12/29/2022 : 1950 Gender:M Ordering : [facility] Admission #: [id number] Family : Order #: [id number] CLICK HERE TO VIEW EXAM RADIOLOGY REPORT [...] Morales M.D. on 12/30/2022 at 09:41 Normal [facility] MAMI DOP LEG RTon 12-09-19 US MAMI [...] MORGAN ROJO Date: 2022-12-08 16:15 Normal [facility] TSHon 11-25-2022 TSH 2.370 uIU/mL Normal 0.358-3.740 [facility] Comment on above: Performed By: #### T SH #### [facility] [address] [place] [address] Dr. lEi Jarvis BNPon 11-08-2022 Natriuretic peptide B (Bld) [Mass/Vol] 122.0 pg/mL Normal <=900.0 [facility] Comment on above: Performed By: #### C MP, BNP #### [facility] [address] [place] [address] Dr. Eli Jarvis CBC AUTO DIFFon 11-08-2022 BASO # 0.1 103/ul Normal 0.0-0.1 [facility] Comment on above: Performed By: #### C BC ####[facility] [address] [place] [address]Dr. Eli Jarvis Basophils/100 WBC (Bld) 0.7 % Normal 0.2-2.0 [facility] Comment on above: Performed By: #### C BC ####[facility] [address] [place] [address]DrSuzie Jarvis EO # 0.2 103/ul Normal 0.0-0.7 [facility] Comment on above: Performed By: #### C BC ####[facility] [address] [place] [address]DrSuzie Jarvis Eosinophils/100 WBC (Bld) 3.5 % Normal 0.9-7.0 [facility] Comment on above: Performed By: #### C BC ####[facility] [address] [place] [address]DrSuzie Jarvis Erythrocyte distribution width (RBC) [Ratio] 13.8 % Normal 11.0-15.0 [facility] Comment on above: Performed By: #### C BC ####[facility] [address] [place] [address]Dr. Eli Jarvis Hematocrit (Bld) [Volume fraction] 42.0 % Normal 42.0-54.0 [facility] Comment on above: Performed By: #### C BC ####[facility] [address] [place] [address]Dr. Eli Jarvis Hemoglobin (Bld) [Mass/Vol] 13.8 g/dL Critically low 14.0-18.0 [facility] Comment on above: Performed By: #### C BC ####[facility] [address]swla[address] [place] [address]Dr. Eli Jarvis IG # 0.03 10e3/ul Normal 0.00-0.03 [facility] Comment on above: Performed By: #### C BC ####[facility] [address] [place], [place] [address]Dr. Eli Jarvis IG % 0.4 % Normal 0.0-0.5 [facility] Comment on above: Performed By: #### C BC ####[facility] [address]ub[address] [place], [place] [address]Dr. Eli Jarvis LYMPH # 1.3 103/ul Normal 1.2-3.8 [facility] Comment on above: Performed By: #### C BC ####[facility] [address] [place] [address]Dr. Eli Jarvis Lymphocytes/100 WBC (Bld) 18.8 % Critically low 20.5-60.0 [facility] Comment on above: Performed By: #### C BC ####[facility] [address] [place], [place] [address]Dr. Eli Jarvis MANUAL DIFF REQ NO Normal [facility] Comment on above: Performed By: #### C BC ####[facility] [address]kb[address]fs[address] [place], [place] [address]Dr. Eli Jarvis MCH (RBC) [Entitic mass] 27.8 pg Normal 25.9-34.0 [facility] Comment on above: Performed By: #### C BC ####[facility] [address] [place] [id number]. Eli Jarvis MCHC (RBC) [Mass/Vol] 32.9 g/dL Normal 29.9-35.2 [facility] Comment on above: Performed By: #### C BC ####[facility] [address] [place] [id number]. Eli Jarvis MCV (RBC) [Entitic vol] 84.7 fL Normal 80.0-94.0 [facility] Comment on above: Performed By: #### C BC ####[facility] Jrjvmrhrlj[address] [place] [id number]. Eli Matheus MONO # 0.6 103/ul Normal 0.3-0.8 [facility] Comment on above: Performed By: #### C BC ####[facility] Jrakgwnx[address] [place], [place] [address]Dr. Eli Jarvis Monocytes/100 WBC (Bld) 8.5 % Normal 1.7-12.0 [facility] Comment on above: Performed By: #### C BC ####[facility] B[address]rm[address] [place], [place] [address]Dr. Eli Jarvis NEUT # 4.7 103/ul Normal 1.4-6.5 [facility] Comment on above: Performed By: #### C BC ####[facility] [address]uz[address] [place], [place] [address]Dr. Eli Jarvis Neutrophils/100 WBC (Bld) 68.1 % Normal 43.0-75.0 [facility] Comment on above: Performed By: #### C BC ####[facility] [address] [place], [place] [address]Dr. Eli Jarvis Platelet mean volume (Bld) [Entitic vol] 10.3 fL Normal 9.5-13.5 [facility] Comment on above: Performed By: #### C BC ####[facility] [address] [place] [id number]. Eli Jarvis PLT 189 103/ul Normal 150-450 [facility] Comment on above: Performed By: #### C BC ####[facility] [address]pbq[address] [place], [place] [address]ToSuzie Jarvis RBC 4.96 106/ul Normal 4.70-6.10 [facility] Comment on above: Performed By: #### C BC ####[facility] [address]osknpta[address] [place], [place] [address]BvDr. Eli Jarvis WBC 7.0 103/ul Normal 4.0-11.0 [facility] Comment on above: Performed By: #### C BC ####[facility] [address] [place] [id number]. Eli Jarvis PROF 14(COMP METB)on 023 Albumin [Mass/Vol] 3.6 g/dL Normal 3.4-5.0 [facility] Comment on above: Performed By: #### C MP, BNP #### [facility] [address] [place] [address] Dr. Eli Jarvis Albumin/Globulin [Mass ratio] 1.1 {ratio} Normal [facility] Comment on above: Performed By: #### C MP, BNP #### [facility] [address] [address] [address] Eli Jarvis ALP [Catalytic activity/Vol] 90 U/L Normal 46-116 [facility] Comment on above: Performed By: #### C MP, BNP #### [facility] [address] [address] [address] Eli Jarvis ALT [Catalytic activity/Vol] 42 U/L Normal 16-63 [facility] Comment on above: Performed By: #### C MP, BNP #### [facility] [address] [address] [address] Eli Jarvis Anion gap [Moles/Vol] 13.5 mmol/L Normal [facility] Comment on above: Performed By: #### C MP, BNP #### [facility] [address] [address] [address] Eli Jarvis AST [Catalytic activity/Vol] 26 U/L Normal 15-37 [facility] Comment on above: Performed By: #### C MP, BNP #### [facility] [address] [place] [address] Dr. Eli Jarvis Bilirubin [Mass/Vol] 0.4 mg/dL Normal 0.2-1.0 [facility] Comment on above: Performed By: #### C MP, BNP #### [facility] [address] [place] [address] Dr. Eli Jarvis Calcium [Mass/Vol] 9.3 mg/dL Normal 8.5-10.1 [facility] Comment on above: Performed By: #### C MP, BNP #### [facility] [address] [place] [address] Dr. Eli Jarvis Chloride [Moles/Vol] 104 mmol/L Normal 98-107 [facility] Comment on above: Performed By: #### C MP, BNP #### [facility] [address] [place] [address] Dr. Eli Jarvis CO2 [Moles/Vol] 25.7 mmol/L Normal 21.0-32.0 [facility] Comment on above: Performed By: #### C MP, BNP #### [facility] [address] [place] [address] Dr. Eli Jarvis Creatinine [Mass/Vol] 1.32 mg/dL Critically high 0.70-1.30 [facility] Comment on above: Performed By: #### C MP, BNP #### [facility] [address] [place] [address] Dr. Eli Jarvis EGFR-AF ENGLISH >60 Normal >=60 [facility] Comment on above: Performed By: #### C MP, BNP #### [facility] [address] [place] [address] Dr. Eli Jarvis EGFR-NON AF ENGLISH 53 mL/min/1.73m2 Critically low >=60 [facility] Comment on above: Performed By: #### C MP, BNP #### [facility] [address] [place] [address] Dr. Eli Jarvis Globulin (S) [Mass/Vol] 3.3 g/dL Normal [facility] Comment on above: Performed By: #### C MP, BNP #### [facility] [address] [address] [address] Eli Jarvis Glucose [Mass/Vol] 154 mg/dL Critically high 74-106 [facility] Comment on above: Performed By: #### C MP, BNP #### [facility] [address] [address] [address] Eli Jarvis Potassium [Moles/Vol] 4.2 mmol/L Normal 3.5-5.1 [facility] Comment on above: Performed By: #### C MP, BNP #### [facility] [address] [address] [address] Eli Jarvis Protein [Mass/Vol] 6.9 g/dL Normal 6.4-8.2 [facility] Comment on above: Performed By: #### C MP, BNP #### [facility] [address] [address] [address] Eli Jarvis Sodium [Moles/Vol] 139 mmol/L Normal 136-145 [facility] Comment on above: Performed By: #### C MP, BNP #### [facility] [address] [address] [address] Eli Jarvis Urea nitrogen [Mass/Vol] 23.0 mg/dL Critically high 7.0-18.0 [facility] Comment on above: Performed By: #### C MP, BNP #### [facility] [address] [address] [address] Eli Jarvis Urea nitrogen/Creatinine [Mass ratio] 17.4 mg/mg Normal [facility] Comment on above: Performed By: #### C MP, BNP #### [facility] [address] [address] [address] Eli Jarvis A1C HEMOGLOBINon 11-07-2022 HbA1c (Bld) [Mass fraction] 7.6 % [employer] Other Glucose - FINGER STICKon Glucose [Mass/Vol] 172 mg/dL [employer] Other HbA1c (Bld) [Mass fraction]o n 11-07-2022 A1C HEMOGLOBIN [employer] Other US KIDNEYSon 2022 US KIDNEYS EXAMINATION: [...] by: MORGAN ROJO Date: 2022 18:30 Normal [facility] A1C HEMOGLOBINon 07-27-2022 HbA1c (Bld) [Mass fraction] 7.2 % [employer] Other Glucose - FINGER STICKon Glucose [Mass/Vol] 160 mg/dL [employer] Other HbA1c (Bld) [Mass fraction]o n 07-27-2022 A1C HEMOGLOBIN [employer] Other A1C HEMOGLOBINon 04-21-2022 HbA1c (Bld) [Mass fraction] 7.6 % [employer] Other Glucose - FINGER STICKon Glucose [Mass/Vol] 184 mg/dL [employer] Other HbA1c (Bld) [Mass fraction]o n 04-21-2022 A1C HEMOGLOBIN [employer] Other [employer] Creat Ratio,Uon Albumin DL <= 20 mg/L (U) [Mass/Vol] 10.3696451 mg/dL High 0.0-1.8 mg/dL [facility] [employer] Other Albumin/Creatinine DL <= 20 mg/L (U) [Mass ratio] 70.081707 mg/g High 0.0-30.0 mg/g [employer] Other Creatinine (U) [Mass/Vol] 597.5260869 mg/dL [employer] Other CBC AUTO DIFFon 04-07-2022 BASO # 0.0 103/ul Normal 0.0-0.1 [facility] Comment on above: Performed By: #### C BC #### [facility] [address] [place] [address] Dr. Eli Jarvis Basophils/100 WBC (Bld) 0.6 % Normal 0.2-2.0 [facility] Comment on above: Performed By: #### C BC #### [facility] [address] [place] [address] Dr. Eli Jarvis EO # 0.2 103/ul Normal 0.0-0.7 [facility] Comment on above: Performed By: #### C BC #### [facility] [address] [address] [address] Eli Jarvis Eosinophils/100 WBC (Bld) 2.9 % Normal 0.9-7.0 [facility] Comment on above: Performed By: #### C BC #### [facility] [address] [address] [address] Eli Jarvis Erythrocyte distribution width (RBC) [Ratio] 13.8 % Normal 11.0-15.0 [facility] Comment on above: Performed By: #### C BC #### [facility] [address] [place] [address] Dr. Eli Jarvis Hematocrit (Bld) [Volume fraction] 40.7 % Critically low 42.0-54.0 [facility] Comment on above: Performed By: #### C BC #### [facility] [address] [place] [address] Dr. Eli Jarvis Hemoglobin (Bld) [Mass/Vol] 13.3 g/dL Critically low 14.0-18.0 [facility] Comment on above: Performed By: #### C BC #### [facility] [address] [place] [address] Dr. Eli Jarvis IG # 0.04 10e3/ul Critically high 0.00-0.03 [facility] Comment on above: Performed By: #### C BC #### [facility] [address] [place] [address] Dr. Eli Jarvis IG % 0.6 % Critically high 0.0-0.5 [facility] Comment on above: Performed By: #### C BC #### [facility] [address] [place] [address] Dr. Eli Jarvis LYMPH # 1.3 103/ul Normal 1.2-3.8 [facility] Comment on above: Performed By: #### C BC #### [facility] [address] [place] [address] Dr. Eli Jarvis Lymphocytes/100 WBC (Bld) 18.7 % Critically low 20.5-60.0 [facility] Comment on above: Performed By: #### C BC #### [facility] [address] [place] [address] Dr. Eli Jarvis MANUAL DIFF REQ NO Normal [facility] Comment on above: Performed By: #### C BC #### [facility] [address] [place] [address] Dr. Eli Jarvis MCH (RBC) [Entitic mass] 28.1 pg Normal 25.9-34.0 [facility] Comment on above: Performed By: #### C BC #### [facility] [address] [place] [address] Dr. Eli Jarvis MCHC (RBC) [Mass/Vol] 32.7 g/dL Normal 29.9-35.2 [facility] Comment on above: Performed By: #### C BC #### [facility] [address] [place] [address] Dr. Eli Jarvis MCV (RBC) [Entitic vol] 86.0 fL Normal 80.0-94.0 [facility] Comment on above: Performed By: #### C BC #### [facility] [address] [address] [address] Eli Jarvis MONO # 0.4 103/ul Normal 0.3-0.8 [facility] Comment on above: Performed By: #### C BC #### [facility] [address] [address] [address] Eli Jarvis Monocytes/100 WBC (Bld) 6.2 % Normal 1.7-12.0 [facility] Comment on above: Performed By: #### C BC #### [facility] [address] [address] [address] Eli Jarvis NEUT # 4.9 103/ul Normal 1.4-6.5 [facility] Comment on above: Performed By: #### C BC #### [facility] [address] [place] [address] Dr. Eli Jarvis Neutrophils/100 WBC (Bld) 71.0 % Normal 43.0-75.0 [facility] Comment on above: Performed By: #### C BC #### [facility] [address] [place] [address] Dr. Eli Jarvis Platelet mean volume (Bld) [Entitic vol] 9.9 fL Normal 9.5-13.5 [facility] Comment on above: Performed By: #### C BC #### [facility] [address] [place] [address] Dr. Eli Jarvis PLT 184 103/ul Normal 150-450 [facility] Comment on above: Performed By: #### C BC #### [facility] [address] [place] [address] Dr. Eli Jarvis RBC 4.73 106/ul Normal 4.70-6.10 [facility] Comment on above: Performed By: #### C BC #### [facility] [address] [place] [address] Dr. Eli Jarvis WBC 6.9 103/ul Normal 4.0-11.0 [facility] Comment on above: Performed By: #### C BC #### [facility] [address] [place], [place] [address] Dr. Eli Jarvis LIPID PROFILEon 04-07-2022 CHOL-HDL RATIO NORM SEE BELOW Normal [facility] Comment on above: Result Comment: 3.3 - 4.4 LOW RISK 4.4 - 7.1 AVERAGE RISK 7.1 - 11.0 MODERATE RISK >11.0 HIGH RISK Performed By: #### C MP, LIPID ####[facility] [address] [place], [place] [address]Lm. Eli Jarvis Cholesterol [Mass/Vol] 127 mg/dL Normal <=200 [facility] Comment on above: Performed By: #### C MP, LIPID ####[facility] [address] [place], [place] [address]KfSuzie Jarvis Cholesterol in HDL [Mass/Vol] 36 mg/dL Critically low 40-60 [facility] Comment on above: Performed By: #### C MP, LIPID ####[facility] [address] [place], [place] [address]MnSuzie Jarvis Cholesterol in LDL [Mass/Vol] 58.4 mg/dL Normal [facility] Comment on above: Performed By: #### C MP, LIPID ####[facility] [address] [place], [place] [address]Fc. Eli Jarvis Cholesterol.total/Cho lesterol in HDL [Mass ratio] 3.5 {ratio} Normal [facility] Comment on above: Performed By: #### C MP, LIPID ####[facility] [address] [place], [place] [address]Ce. Eli Jarvis HDL NORMAL > or = 60 mg/dl - LO W CARDIOVASCULAR RISK <40 mg/dl - HIGH CARDIOVASCULAR RISK Normal [facility] Comment on above: Performed By: #### C MP, LIPID ####[facility] [address] [place], [place] [address]Hf. Eli Jarvis LDL CALC NORMAL SEE BELOW Normal [facility] Comment on above: Result Comment: <100 mg/dl OPTIMAL 100 - 129 mg/dl NEAR OR ABOVE OPTIMAL 130 - 159 mg/dl BORDERLINE HIGH 160 - 189 mg/dl HIGH >190 mg/dl VERY HIGH Performed By: #### C MP, LIPID ####[facility] [address] [place] [address]Dr. Eli Jarvis Triglyceride [Mass/Vol] 163 mg/dL Critically high <=150 [facility] Comment on above: Performed By: #### C MP, LIPID ####[facility] [address] [place] [address]Dr. Eli Jarvis VLDL CALC 32.6 mg/dL Normal [facility] Comment on above: Performed By: #### C MP, LIPID ####[facility] [address] [place] [address]Dr. Eli Jarvis PROF 14(COMP METB)on 022 Albumin [Mass/Vol] 3.8 g/dL Normal 3.4-5.0 [facility] Comment on above: Performed By: #### C MP, LIPID ####[facility] [address] [place] [address]Dr. Eli Jarvis Albumin/Globulin [Mass ratio] 1.1 {ratio} Normal [facility] Comment on above: Performed By: #### C MP, LIPID ####[facility] [address] [place] [address]Dr. Eli Jarvis ALP [Catalytic activity/Vol] 89 U/L Normal 46-116 [facility] Comment on above: Performed By: #### C MP, LIPID ####[facility] [address] [place] [address]Dr. Eli Jarvis ALT [Catalytic activity/Vol] 43 U/L Normal 16-63 [facility] Comment on above: Performed By: #### C MP, LIPID ####[facility] [address] [place] [address]Dr. Eli Jarvis Anion gap [Moles/Vol] 10.7 mmol/L Normal [facility] Comment on above: Performed By: #### C MP, LIPID ####[facility] [address] [place] [id number]. Eli Jarvis AST [Catalytic activity/Vol] 24 U/L Normal 15-37 [facility] Comment on above: Performed By: #### C MP, LIPID ####[facility] [address] [place] [address]Dr. Eli Jarvis Bilirubin [Mass/Vol] 0.2 mg/dL Normal 0.2-1.0 [facility] Comment on above: Performed By: #### C MP, LIPID ####[facility] [address] [place] [address]Dr. Eli Jarvis Calcium [Mass/Vol] 9.1 mg/dL Normal 8.5-10.1 [facility] Comment on above: Performed By: #### C MP, LIPID ####[facility] [address] [place], [place] [address]Dr. Eli Jarvis Chloride [Moles/Vol] 104 mmol/L Normal 98-107 [facility] Comment on above: Performed By: #### C MP, LIPID ####[facility] [address] [place], [place] [address]Dr. Eli Jarvis CO2 [Moles/Vol] 27.5 mmol/L Normal 21.0-32.0 [facility] Comment on above: Performed By: #### C MP, LIPID ####[facility] [address] [place], [place] [address]Dr. Eli Jarvis Creatinine [Mass/Vol] 1.15 mg/dL Normal 0.70-1.30 [facility] Comment on above: Performed By: #### C MP, LIPID ####[facility] [address]ys[address] [place], [place] [address]Dr. Eli Jarvis EGFR-AF ENGLISH >60 Normal >=60 [facility] Comment on above: Performed By: #### C MP, LIPID ####[facility] [address] [place], [place] [address]Dr. Eli Jarvis EGFR-NON AF ENGLISH >60 Normal >=60 [facility] Comment on above: Performed By: #### C MP, LIPID ####[facility] [address] [place], [place] [address]Dr. Eli Jarvis Globulin (S) [Mass/Vol] 3.4 g/dL Normal [facility] Comment on above: Performed By: #### C MP, LIPID ####[facility] [address] [place] [id number]. Eli Jarvis Glucose [Mass/Vol] 157 mg/dL Critically high 74-106 [facility] Comment on above: Performed By: #### C MP, LIPID ####[facility] [address] [place] [address]Dr. Eli Jarvis Potassium [Moles/Vol] 4.2 mmol/L Normal 3.5-5.1 [facility] Comment on above: Performed By: #### C MP, LIPID ####[facility] [address] [place] [address]Dr. Eli Jarvis Protein [Mass/Vol] 7.2 g/dL Normal 6.4-8.2 [facility] Comment on above: Performed By: #### C MP, LIPID ####[facility] [address] [place] [address]Dr. Eli Jarvis Sodium [Moles/Vol] 138 mmol/L Normal 136-145 [facility] Comment on above: Performed By: #### C MP, LIPID ####[facility] X[address] [place] [address]Dr. Eli Jarvis Urea nitrogen [Mass/Vol] 26.0 mg/dL Critically high 7.0-18.0 [facility] Comment on above: Performed By: #### C MP, LIPID ####[facility] [address] [place] [address]Dr. Eli Jarvis Urea nitrogen/Creatinine [Mass ratio] 22.6 mg/mg Normal [facility] Comment on above: Performed By: #### C MP, LIPID ####[facility] [address] [place] [address]Dr. Eli Jarvis A1C HEMOGLOBINon 10-21-2021 HbA1c (Bld) [Mass fraction] 6.6 % [employer] Other Glucose - FINGER STICKon Glucose [Mass/Vol] 169 mg/dL [employer] Other HbA1c (Bld) [Mass fraction]o n 10-21-2021 A1C HEMOGLOBIN [facility] [employer] Other Comprehensive Metabolic Pane efe 07-29-2021 Albumin [Mass/Vol] 3.9 g/dL 3.2-5.5 [facility] [employer] Other Albumin/Globulin [Mass ratio] 1.6 {ratio} [facility] [employer] Other ALP [Catalytic activity/Vol] 63 U/L 32-92 [facility] [employer] Other ALT [Catalytic activity/Vol] 32 U/L 10-60 [facility] [employer] Other AST [Catalytic activity/Vol] 32 U/L 10-42 [facility] [employer] Other Bilirubin [Mass/Vol] 0.5 mg/dL 0.3-1.2 [facility] Other Calcium [Mass/Vol] 9.7 mg/dL 8.2-10.2 [facility] [employer] Other Chloride [Moles/Vol] 105 mmol/L 95-114 [facility] Other CO2 [Moles/Vol] 22.7 mmol/L 22.0-30.0 [facility] [employer] Other Creatinine [Mass/Vol] 1.28 mg/dL 0.64-1.27 [facility] [employer] Other Glucose [Mass/Vol] 111 mg/dL 70-100 [facility] [employer] Other Potassium [Moles/Vol] 4.1 mmol/L 3.5-5.1 [facility] [employer] Other Protein [Mass/Vol] 6.3 g/dL 6.1-7.9 [facility] [employer] Other Sodium [Moles/Vol] 139 mmol/L 136-146 [facility] [employer] Other Urea nitrogen [Mass/Vol] 23 mg/dL 9-23 [employer] Other Comprehensive Metabolic Panel 55 [employer] Other Comprehensive Metabolic Panel > 60 [employer] Other Comprehensive Metabolic Panel 2.4 [employer] Other Hepatitis Acute Panelon 10- Hepatitis Acute Panel Negative Negative [facility] [employer] Other Hepatitis Acute Panel <0.1 0.0-0.9 [facility] [employer] Other Vital Signs Date Time Vital Sign Value Performing Clinician Facility 07-17-2025 14:01-0400 Body height 165.1 cm Bassam Aguilar DPM Work Phone: [facility] 07-17-2025 14:01-0400 Body mass index (BMI) [Ratio] 45.93 kg/m2 Bassam Brown DPM Work Phone: [facility] 07-17-2025 14:01-0400 Body weight 125.19 kg Bassam Brown DPM Work Phone: [facility] 07-17-2025 14:01-0400 Respiratory rate 18 /min Bassam Brown DPM Work Phone: [facility] 07-08-2025 14:43-0400 Body height 165.1 cm Bassam Brown DPM Work Phone: [facility] 07-08-2025 14:43-0400 Body mass index (BMI) [Ratio] 45.93 kg/m2 Bassam Brown DPM Work Phone: [facility] 07-08-2025 14:43-0400 Body weight 125.19 kg Bassam Brown DPM Work Phone: [facility] 07-08-2025 14:43-0400 Respiratory rate 16 /min Bassam Brown DPM Work Phone: [facility] 07-05-2025 16:00-0400 Body temperature 97.9 [degF] Deo Hickman Work Phone: [facility] 07-05-2025 16:00-0400 Diastolic blood pressure 68 mm[Hg] Deo Hickman Work Phone: [facility] 07-05-2025 16:00-0400 Heart rate 74 /min Deo Hickman Work Phone: [facility] 07-05-2025 16:00-0400 Respiratory rate 18 /min Deo Hickman Work Phone: [facility] 07-05-2025 16:00-0400 SaO2% (BldA) [Mass fraction] 94 % Deo Hickman Work Phone: [facility] 07-05-2025 16:00-0400 Systolic blood pressure 141 mm[Hg] Deo Hickman Work Phone: [facility] 07-05-2025 05:39-0400 Body weight 116.6 kg Deo Hickman Work Phone: [facility] 07-04-2025 14:56-0400 Body height 170.18 cm Deo Hickman Work Phone: [facility] 05-22-2025 08:59-0400 Body height 165.1 cm Bassam Aguilar DPM Work Phone: [facility] 05-22-2025 08:59-0400 Body mass index (BMI) [Ratio] 45.93 kg/m2 Bassam Aguilar DPM Work Phone: [facility] 05-22-2025 08:59-0400 Body weight 125.19 kg Bassam Aguilar DPM Work Phone: [facility] 05-22-2025 08:59-0400 Respiratory rate 16 /min Bassam Aguilar DPM Work Phone: [facility] 05-14-2025 10:55-0400 Body height 170.18 cm Kaia Torres PhD Work Phone: [facility] 05-14-2025 10:55-0400 Body mass index (BMI) [Ratio] 40.08 kg/m2 Kaia Torres PhD Work Phone: [facility] 05-14-2025 10:55-0400 Body surface area Derived from formula 2.34 m2 Kaia Torres PhD Work Phone: [facility] 05-14-2025 10:55-0400 Body weight 116.07 kg Kaia Torres PhD Work Phone: [facility] 04-30-2025 14:19-0400 Body height 165.1 cm David Wong MD Work Phone: [facility] 04-30-2025 14:19-0400 Body mass index (BMI) [Ratio] 45.93 kg/m2 David Wong MD Work Phone: [facility] 04-30-2025 14:19-0400 Body weight 125.19 kg David Wong MD Work Phone: [facility] 04-30-2025 14:19-0400 Diastolic blood pressure 77 mm[Hg] David Wong MD Work Phone: [facility] 04-30-2025 14:19-0400 Heart rate 76 /min David Wong MD Work Phone: [facility] 04-30-2025 14:19-0400 Systolic blood pressure 113 mm[Hg] David Wong MD Work Phone: [facility] 04-03-2025 13:03-0400 Body weight 116.2 kg Deo Hickman Work Phone: [facility] 03-31-2025 09:19-0400 Body height 165.1 cm David Wong MD Work Phone: [facility] 03-31-2025 09:19-0400 Body mass index (BMI) [Ratio] 45.93 kg/m2 David Wong MD Work Phone: [facility] 03-31-2025 09:19-0400 Body weight 125.19 kg David Wong MD Work Phone: [facility] 03-31-2025 09:19-0400 Diastolic blood pressure 63 mm[Hg] David Wong MD Work Phone: [facility] 03-31-2025 09:19-0400 Heart rate 78 /min David Wong MD Work Phone: [facility] 03-31-2025 09:19-0400 Systolic blood pressure 98 mm[Hg] David Wong MD Work Phone: [facility] 03-26-2025 13:09-0400 Body height 170.18 cm Deo Hickman Work Phone: [facility] 03-26-2025 13:09-0400 Body mass index (BMI) [Ratio] 40.4 kg/m2 Deo Hickman Work Phone: [facility] 03-26-2025 13:09-0400 Body weight 117 kg Deo Kristofer Work Phone: [facility] 03-26-2025 13:09-0400 Diastolic blood pressure 56 mm[Hg] Deo Hickman Work Phone: [facility] 03-26-2025 13:09-0400 Heart rate 63 /min Deo Hickman Work Phone: [facility] 03-26-2025 13:09-0400 Respiratory rate 18 /min Deo Kristofer Work Phone: [facility] 03-26-2025 13:09-0400 SaO2% (BldA) [Mass fraction] 98 % Deo Hickman Work Phone: [facility] 03-26-2025 13:09-0400 Systolic blood pressure 117 mm[Hg] Deo Hickman Work Phone: [facility] 03-19-2025 11:38-0400 Body height 170.18 cm Deo Hickman Work Phone: [facility] 03-19-2025 11:38-0400 Body mass index (BMI) [Ratio] 39.9 kg/m2 Deo Hickman Work Phone: [facility] 03-19-2025 11:38-0400 Body temperature 97.2 [degF] Deo Hickman Work Phone: [facility] 03-19-2025 11:38-0400 Body weight 115.66 kg Deo Hickman Work Phone: [facility] 03-19-2025 11:38-0400 Diastolic blood pressure 70 mm[Hg] Deo Hickman Work Phone: [facility] 03-19-2025 11:38-0400 Heart rate 96 /min Deo Hickman Work Phone: [facility] 03-19-2025 11:38-0400 SaO2% (BldA) [Mass fraction] 98 % Deo Hickman Work Phone: [facility] 03-19-2025 11:38-0400 Systolic blood pressure 150 mm[Hg] Deo Hickman Work Phone: [facility] 03-13-2025 13:17-0400 Body height 170.18 cm [facility] 03-13-2025 13:17-0400 Body mass index (BMI) [Ratio] 39.1 kg/m2 [facility] 03-13-2025 13:17-0400 Body weight 113.3 kg [facility] 03-13-2025 13:17-0400 Diastolic blood pressure 93 mm[Hg] [facility] 03-13-2025 13:17-0400 Systolic blood pressure 147 mm[Hg] [facility] 03-06-2025 09:16-0400 Body height 165.1 cm Bassam Aguilar DPM Work Phone: [facility] 03-06-2025 09:16-0400 Body mass index (BMI) [Ratio] 45.93 kg/m2 Bassam Aguilar DPM Work Phone: [facility] 03-06-2025 09:16-0400 Body weight 125.19 kg Bassam Aguilar DPM Work Phone: [facility] 03-06-2025 09:16-0400 Respiratory rate 18 /min Bassam Aguilar DPM Work Phone: [facility] 10-17-2024 10:14-0500 Body height 165.1 cm Bassam Aguilar DPM Work Phone: [facility] 10-17-2024 10:14-0500 Body mass index (BMI) [Ratio] 45.93 kg/m2 Bassam Aguilar DPM Work Phone: [facility] 10-17-2024 10:14-0500 Body weight 125.19 kg Bassam Aguilar DPM Work Phone: [facility] 10-17-2024 10:14-0500 Respiratory rate 16 /min Bassam Aguilar DPM Work Phone: [facility] 08-29-2024 09:27-0500 Body mass index (BMI) [Ratio] 45.93 kg/m2 Christopher Lalo DO Work Phone: [facility] 08-29-2024 09:27-0500 Body weight 125.19 kg Christopher Lalo DO Work Phone: [facility] 08-29-2024 09:27-0500 Diastolic blood pressure 76 mm[Hg] Christopher Lalo DO Work Phone: [facility] 08-29-2024 09:27-0500 Heart rate 64 /min Christopher Lalo DO Work Phone: [facility] 08-29-2024 09:27-0500 SaO2% (BldA) [Mass fraction] 95 % Christopher Lalo DO Work Phone: [facility] 08-29-2024 09:27-0500 Systolic blood pressure 134 mm[Hg] Matthew May DO Work Phone: [facility] 08-14-2024 09:59-0500 Body mass index (BMI) [Ratio] 40.46 kg/m2 Chiqui Robles MD Work Phone: [facility] 08-14-2024 09:59-0500 Body weight 117.2 kg Chiqui Robles MD Work Phone: [facility] 08-14-2024 09:59-0500 Diastolic blood pressure 69 mm[Hg] Chiqui Robles MD Work Phone: [facility] 08-14-2024 09:59-0500 Heart rate 59 /min Chiqui Robles MD Work Phone: [facility] 08-14-2024 09:59-0500 Respiratory rate 16 /min Chiqui Robles MD Work Phone: [facility] 08-14-2024 09:59-0500 SaO2% (BldA) [Mass fraction] 97 % Chiqui Robles MD Work Phone: [facility] 08-14-2024 09:59-0500 Systolic blood pressure 137 mm[Hg] Chiqui Robles MD Work Phone: [facility] 08-08-2024 09:32-0400 Body height 165.1 cm Bassam Aguilar DPM Work Phone: [facility] 08-08-2024 09:32-0400 Body mass index (BMI) [Ratio] 42.43 kg/m2 Bassam Aguilar DPM Work Phone: [facility] 08-08-2024 09:32-0400 Body weight 115.67 kg Bassam Aguilar DPM Work Phone: [facility] 08-08-2024 09:32-0400 Diastolic blood pressure 79 mm[Hg] Bassam Aguilar DPM Work Phone: [facility] 08-08-2024 09:32-0400 Heart rate 82 /min Bassam Aguilar DPM Work Phone: [facility] 08-08-2024 09:32-0400 Systolic blood pressure 128 mm[Hg] Bassam Brown DPM Work Phone: [facility] 08-06-2024 09:53-0400 Body height 165.1 cm Khai Heard DO Work Phone: [facility] 08-06-2024 09:53-0400 Body mass index (BMI) [Ratio] 42.43 kg/m2 Khai Heard DO Work Phone: [facility] 08-06-2024 09:53-0400 Body weight 115.67 kg Khai Heard DO Work Phone: [facility] 07-31-2024 10:20-0400 Body height 165.1 cm Shyam Dolce DPM FACF[employer] Work Phone: [facility] 07-31-2024 10:20-0400 Body mass index (BMI) [Ratio] 42.43 kg/m2 Shyam Dolce DPM [employer] Work Phone: [facility] 07-31-2024 10:20-0400 Body weight 115.67 kg Shyam Dolce DPM [employer] Work Phone: [facility] 07-31-2024 10:20-0400 Diastolic blood pressure 79 mm[Hg] Shyam Dolce DPM [employer]AC[employer] Work Phone: [facility] 07-31-2024 10:20-0400 Heart rate 68 /min Shyam Dolce DPM [employer] Work Phone: [facility] 07-31-2024 10:20-0400 Systolic blood pressure 128 mm[Hg] Shyam Dolce DPM [employer] Work Phone: [facility] 07-24-2024 10:12-0400 Body height 165.1 cm Shyam Dolce DPM [employer] Work Phone: [facility] 07-24-2024 10:12-0400 Body mass index (BMI) [Ratio] 42.43 kg/m2 Shyam Dolce DPM [employer] Work Phone: [facility] 07-24-2024 10:12-0400 Body weight 115.67 kg Shyam Dolce DPM [employer] Work Phone: [facility] 07-24-2024 10:12-0400 Diastolic blood pressure 78 mm[Hg] Shyam Dolce DPM [employer] Work Phone: [facility] 07-24-2024 10:12-0400 Heart rate 83 /min Shyam Dolce DPM [employer] Work Phone: [facility] 07-24-2024 10:12-0400 Systolic blood pressure 131 mm[Hg] Shyam Dolce DPM [employer] Work Phone: [facility] 07-23-2024 09:37-0400 Body height 165.1 cm Arlen [employer] Work Phone: [facility] 07-23-2024 09:37-0400 Body mass index (BMI) [Ratio] 42.43 kg/m2 Arlen SalasDaniel DO Work Phone: [facility] 07-23-2024 09:37-0400 Body weight 115.67 kg Arlen SalasDaniel DO Work Phone: [facility] 07-03-2024 10:07-0400 Body height 165.1 cm Shyam Dolce DPM [employer] Work Phone: [facility] 07-03-2024 10:07-0400 Body mass index (BMI) [Ratio] 42.43 kg/m2 Shyam Dolce DPM [employer] Work Phone: [facility] 07-03-2024 10:07-0400 Body weight 115.67 kg Shyam Dolce DPM [employer] Work Phone: [facility] 07-03-2024 10:07-0400 Diastolic blood pressure 78 mm[Hg] Shyam Dolce DPM [employer] Work Phone: [facility] 07-03-2024 10:07-0400 Heart rate 85 /min Shyam Dolce DPM [employer] Work Phone: [facility] 07-03-2024 10:07-0400 Systolic blood pressure 132 mm[Hg] Shyam Dolce DPM [employer] Work Phone: [facility] 06-25-2024 14:46-0400 Body height 165.1 cm Levar Dolce DPM [employer] Work Phone: [facility] 06-25-2024 14:46-0400 Body mass index (BMI) [Ratio] 42.43 kg/m2 Levar Dolce DPM [employer] Work Phone: [facility] 06-25-2024 14:46-0400 Body weight 115.67 kg Levar Dolce DPM [employer] Work Phone: [facility] 06-25-2024 14:46-0400 Diastolic blood pressure 75 mm[Hg] Levar Dolce DPM [employer] Work Phone: [facility] 06-25-2024 14:46-0400 Heart rate 72 /min Levar Dolce DPM [employer] Work Phone: [facility] 06-25-2024 14:46-0400 Systolic blood pressure 126 mm[Hg] Levar Dolce DPM [employer] Work Phone: [facility] 06-19-2024 08:52-0400 Body height 165.1 cm Shyam Dolce DPM [employer] Work Phone: [facility] 06-19-2024 08:52-0400 Body mass index (BMI) [Ratio] 42.43 kg/m2 Shyam Dolce DPM [employer] Work Phone: [facility] 06-19-2024 08:52-0400 Body weight 115.67 kg Shyam Dolce DPM [employer] Work Phone: [facility] 06-19-2024 08:52-0400 Diastolic blood pressure 77 mm[Hg] Shyam Dolce DPM [employer] Work Phone: [facility] 06-19-2024 08:52-0400 Heart rate 73 /min Shyam Dolce DPM [employer] Work Phone: [facility] 06-19-2024 08:52-0400 Systolic blood pressure 125 mm[Hg] Shyam Cam DPM [employer] Work Phone: [facility] 06-18-2024 10:17-0400 Body height 165.1 cm Bassam Aguilar DPM Work Phone: [facility] 06-18-2024 10:17-0400 Body mass index (BMI) [Ratio] 42.43 kg/m2 Bassam Aguilar DPM Work Phone: [facility] 06-18-2024 10:17-0400 Body weight 115.67 kg Bassam Aguilar DPM Work Phone: [facility] 06-18-2024 10:17-0400 Diastolic blood pressure 75 mm[Hg] Bassam Aguilar DPM Work Phone: [facility] 06-18-2024 10:17-0400 Heart rate 83 /min Bassam Aguilar DPM Work Phone: [facility] 06-18-2024 10:17-0400 Systolic blood pressure 125 mm[Hg] Bassam Aguilar DPM Work Phone: [facility] 04-24-2024 08:50-0400 Body height 170.2 cm Chiqui Robles MD Work Phone: [facility] 04-24-2024 08:50-0400 Body mass index (BMI) [Ratio] 42.28 kg/m2 Chiqui Robles MD Work Phone: [facility] 04-24-2024 08:50-0400 Body weight 122.47 kg Chiqui Robles MD Work Phone: [facility] 04-24-2024 08:50-0400 Diastolic blood pressure 89 mm[Hg] Chiqui Robles MD Work Phone: [facility] 04-24-2024 08:50-0400 Heart rate 61 /min Chiqui Robles MD Work Phone: [facility] 04-24-2024 08:50-0400 SaO2% (BldA) [Mass fraction] 95 % Chiqui Robles MD Work Phone: [facility] 04-24-2024 08:50-0400 Systolic blood pressure 122 mm[Hg] Chiqui Robles MD Work Phone: [facility] 02-29-2024 13:41-0400 Body height 170.2 cm Herberth Araujo MD, PhD Work Phone: [facility] 02-29-2024 13:41-0400 Body mass index (BMI) [Ratio] 42.29 kg/m2 Herberth Araujo MD, PhD Work Phone: [facility] 02-29-2024 13:41-0400 Body temperature 97.39 [degF] Herberth Araujo MD, PhD Work Phone: [facility] 02-29-2024 13:41-0400 Body weight 122.47 kg Herberth Araujo MD, PhD Work Phone: [facility] 02-29-2024 13:41-0400 Diastolic blood pressure 73 mm[Hg] Herberth Araujo MD, PhD Work Phone: [facility] 02-29-2024 13:41-0400 Heart rate 62 /min Herberth Araujo MD, PhD Work Phone: [facility] 02-29-2024 13:41-0400 SaO2% (BldA) [Mass fraction] 94 % Herberth Araujo MD, PhD Work Phone: [facility] 02-29-2024 13:41-0400 Systolic blood pressure 138 mm[Hg] Herberth Araujo MD, PhD Work Phone: [facility] 02-05-2024 12:17-0400 Body weight 124.74 kg Francoise Singletary MD Work Phone: [facility] 02-05-2024 12:17-0400 Diastolic blood pressure 70 mm[Hg] Francoise Singletary MD Work Phone: [facility] 02-05-2024 12:17-0400 Heart rate 80 /min Francoise Singletary MD Work Phone: [facility] 02-05-2024 12:17-0400 Systolic blood pressure 131 mm[Hg] Francoise Singletary MD Work Phone: [facility] 09-11-2023 11:00-0500 Body height 167.64 cm Tondra Mapus Other [facility] 09-11-2023 11:00-0500 Body mass index (BMI) [Ratio] 44.91 kg/m2 Tondra Mapus Other [facility] Other 09-11-2023 11:00-0500 Body weight 126.24 kg Tondra Mapus Other [facility] Other 09-11-2023 11:00-0500 Body weight 126.23 kg MD Scarlet Johnson Work Phone: [facility] 09-11-2023 11:00-0500 Diastolic blood pressure 82 mm[Hg] Tondra Mapus Other [facility] 09-11-2023 11:00-0500 Respiratory rate 18 /min Tondra Mapus Other [facility] Other 09-11-2023 11:00-0500 SaO2% (BldA) [Mass fraction] 99 % Tondra Mapus Other [facility] Other 09-11-2023 11:00-0500 Systolic blood pressure 153 mm[Hg] Tondra Mapus Other [facility] 08-24-2023 13:45-0500 Body height 167.64 cm Eligio Soni Other [facility] 08-24-2023 13:45-0500 Body mass index (BMI) [Ratio] 44.22 kg/m2 Eligio Zachariah Other [employer] Other 08-24-2023 13:45-0500 Body temperature 97.4 [degF] Eligio Zachariah Other [employer] Other 08-24-2023 13:45-0500 Body weight 124.29 kg Eligio Russellfabiola Other [employer] Other 08-24-2023 13:45-0500 Body weight 124.28 kg MD Scarlet Johnson Work Phone: [facility] 08-24-2023 13:45-0500 Diastolic blood pressure 60 mm[Hg] Eligio Soni Other [facility] 08-24-2023 13:45-0500 SaO2% (BldA) [Mass fraction] 97 % Eligio Zachariah Other [employer] Other 08-24-2023 13:45-0500 Systolic blood pressure 130 mm[Hg] Eligio Zachariah Other [facility] 03-07-2023 10:00-0400 Body height 167.64 cm Terry Kelley Other [employer] Other 03-07-2023 10:00-0400 Body mass index (BMI) [Ratio] 43.61 kg/m2 Terry Kelley Other [employer] Other 03-07-2023 10:00-0400 Body weight 122.56 kg Terry Kelley Other [employer] Other 05-30-2023 10:00-0400 Diastolic blood pressure 70 mm[Hg] Terry Kelley Other [employer] Other 03-07-2023 10:00-0400 Respiratory rate 20 /min Teryr Kelley Other [employer] Other 03-07-2023 10:00-0400 SaO2% (BldA) [Mass fraction] 96 % Terry Kelley Other [employer] Other 03-07-2023 10:00-0400 Systolic blood pressure 134 mm[Hg] Terry Kelley Other [employer] Other 02-14-2023 09:45-0400 Body height 172.72 cm Tondra Mapus Other [employer] Other 02-14-2023 09:45-0400 Body mass index (BMI) [Ratio] 41.32 kg/m2 Tondra Mapus Other [employer] Other 02-14-2023 09:45-0400 Body weight 123.29 kg Tondra Mapus Other [employer] Other 02-14-2023 09:45-0400 Diastolic blood pressure 82 mm[Hg] Tondra Mapus Other [employer] Other 02-14-2023 09:45-0400 Respiratory rate 18 /min Tondra Mapus Other [employer] Other 02-14-2023 09:45-0400 SaO2% (BldA) [Mass fraction] 97 % Tondra Mapus Other [employer] Other 02-14-2023 09:45-0400 Systolic blood pressure 157 mm[Hg] Aldo Middleton Other [employer] Other 01-20-2023 12:15-0400 Body height 172.72 cm Carito Fitt Other [employer] Other 01-20-2023 12:15-0400 Body mass index (BMI) [Ratio] 40.71 kg/m2 Carito Fitt Other [employer] Other 01-20-2023 12:15-0400 Body weight 121.47 kg Carito Fitt Other [employer] Other 01-05-2023 11:15-0400 Body height 172.72 cm Terry Kelley Other [employer] Other 01-05-2023 11:15-0400 Body mass index (BMI) [Ratio] 40.96 kg/m2 Terry Kelley Other [employer] Other 01-05-2023 11:15-0400 Body weight 122.2 kg Terry Kelley Other [employer] Other 01-05-2023 11:15-0400 Diastolic blood pressure 73 mm[Hg] Terry Kelley Other [employer] Other 01-05-2023 11:15-0400 Respiratory rate 18 /min Terry Kelley Other [employer] Other 01-05-2023 11:15-0400 SaO2% (BldA) [Mass fraction] 98 % Terry Kelley Other [employer] Other 01-05-2023 11:15-0400 Systolic blood pressure 143 mm[Hg] Terry Kelley Other [employer] Other 11-24-2022 12:15-0500 Body height 172.72 cm Carito Fitt Other [employer] Other 11-24-2022 12:15-0500 Body mass index (BMI) [Ratio] 42.22 kg/m2 Carito Fitt Other [employer] Other 11-24-2022 12:15-0500 Body weight 125.96 kg Carito Fitt Other [employer] Other 11-18-2022 11:15-0500 Body height 172.72 cm Terry Kelley Other [employer] Other 11-18-2022 11:15-0500 Body mass index (BMI) [Ratio] 41.96 kg/m2 Terry Kelley Other [employer] Other 11-18-2022 11:15-0500 Body weight 125.19 kg Terry Kelley Other [employer] Other 11-18-2022 11:15-0500 Diastolic blood pressure 75 mm[Hg] Terry Kelley Other [employer] Other 11-18-2022 11:15-0500 Respiratory rate 18 /min Terry Kelley Other [employer] Other 11-18-2022 11:15-0500 SaO2% (BldA) [Mass fraction] 99 % Terry Kelley Other [employer] Other 11-18-2022 11:15-0500 Systolic blood pressure 148 mm[Hg] Terry Kelley Other [employer] Other 11-07-2022 10:15-0500 Body height 172.72 cm Tondra Mapus Other [employer] Other 11-07-2022 10:15-0500 Body mass index (BMI) [Ratio] 42.58 kg/m2 Tondra Mapus Other [employer] Other 11-07-2022 10:15-0500 Body weight 127.05 kg Tondra Mapus Other [employer] Other 11-07-2022 10:15-0500 Diastolic blood pressure 83 mm[Hg] Tondra Mapus Other [employer] Other 11-07-2022 10:15-0500 Respiratory rate 18 /min Tondra Mapus Other [employer] Other 11-07-2022 10:15-0500 SaO2% (BldA) [Mass fraction] 98 % Tondra Mapus Other [employer] Other 11-07-2022 10:15-0500 Systolic blood pressure 170 mm[Hg] Tondra Mapus Other [employer] Other 10-18-2022 15:00-0500 Body height 172.72 cm Carito West Other [employer] Other 2022 16:15-0400 Body height 172.72 cm Carito Fitt Other [employer] Other 07-27-2022 12:00-0400 Body height 172.72 cm Tondra Mapus Other [employer] Other 07-27-2022 12:00-0400 Body mass index (BMI) [Ratio] 40.9 kg/m2 Tondra Mapus Other [employer] Other 07-27-2022 12:00-0400 Body weight 122.02 kg Tondra Mapus Other [employer] Other 07-27-2022 12:00-0400 Diastolic blood pressure 75 mm[Hg] Tondra Mapus Other [employer] Other 07-27-2022 12:00-0400 Respiratory rate 20 /min Tondra Mapus Other [employer] Other 07-27-2022 12:00-0400 SaO2% (BldA) [Mass fraction] 97 % Tondra Mapus Other [employer] Other 07-27-2022 12:00-0400 Systolic blood pressure 141 mm[Hg] Tondra Mapus Other [employer] Other 06-08-2022 10:45-0400 Body height 172.72 cm Carito Fitt Other [employer] Other 04-21-2022 12:00-0400 Body height 172.72 cm Tondra Mapus Other [employer] Other 04-21-2022 12:00-0400 Body mass index (BMI) [Ratio] 39.67 kg/m2 Tondra Mapus Other [employer] Other 04-21-2022 12:00-0400 Body weight 118.34 kg Tondra Mapus Other [employer] Other 04-21-2022 12:00-0400 Diastolic blood pressure 74 mm[Hg] Tondra Mapus Other [employer] Other 04-21-2022 12:00-0400 Respiratory rate 20 /min Tondra Mapus Other [employer] Other 04-21-2022 12:00-0400 SaO2% (BldA) [Mass fraction] 97 % Tondra Mapus Other [employer] Other 04-21-2022 12:00-0400 Systolic blood pressure 143 mm[Hg] Tondra Mapus Other [employer] Other 10-21-2021 12:00-0500 Body height 172.72 cm Tondra Mapus Other [employer] Other 10-21-2021 12:00-0500 Body mass index (BMI) [Ratio] 40.14 kg/m2 Tondra Mapus Other [employer] Other 10-21-2021 12:00-0500 Body weight 119.75 kg Tondra Mapus Other [employer] Other 10-21-2021 12:00-0500 Diastolic blood pressure 78 mm[Hg] Tondra Mapus Other [employer] Other 10-21-2021 12:00-0500 Respiratory rate 20 /min Tondra Mapus Other [employer] Other 10-21-2021 12:00-0500 SaO2% (BldA) [Mass fraction] 97 % Tondra Mapus Other [employer] Other 10-21-2021 12:00-0500 Systolic blood pressure 147 mm[Hg] Tondra Mapus Other [employer] Other 07-21-2021 15:45-0400 Body height 172.72 cm Morgan Kunz Other [employer] Other 07-21-2021 15:45-0400 Body mass index (BMI) [Ratio] 38.77 kg/m2 Morgan Kunz Other [employer] Other 07-21-2021 15:45-0400 Body weight 115.67 kg Morgan Kunz Other [employer] Other 12-14-2017 15:17-0500 Body height 170.18 cm MD Scarlet Johnson Work Phone: [facility] Encounters Encounter Date Encounter Type Care Provider Facility Start: 05-21-2026 ambulatory Nanette L Karl Facility: [facility] [place] Start: 11-05-2025 ambulatory Nanette L Karl Facility: [facility] [place] Start: 09-18-2025 ambulatory Nanette L Karl Facility: [facility] [place] Start: 07-21-2025 ambulatory Nanette L Karl Facility: [facility] [place] Start: 07-17-2025 End: 07-17-2025 Minal Aguilar DPM Work Phone: [facility] Start: 07-17-2025 End: 07-17-2025 Bamboo flowsheet Bassam Aguilar DPM Work Phone: [facility] Start: 07-17-2025 End: 07-17-2025 Postop follow up visit related to original px Bassam Nur Jeff DPM Work Phone: [facility] Comment on above: Osteomyelitis of ank le or foot, acute, right (HCC) (Primary Dx); Cellulitis of right foot; Diabetes 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, unspecified whether assisted insulin use (HCC); Venous insufficiency Start: 07-17-2025 End: 07-17-2025 ambulatory BASSAM AGUILAR Not Available Start: 07-08-2025 End: 07-08-2025 Postop follow up visit related to original px Bassam A Jeff DPM Work Phone: [facility] Comment on above: Diabetes mellitus du e to underlying condition with diabetic polyneuropathy, unspecified whether intermediate teacher insulin use (HCC) (Primary Dx); Cellulitis of right foot; Osteomyelitis of ankle or foot, acute, right (HCC) Start: 07-08-2025 End: 07-08-2025 ambulatory BASSAM AGUILAR Not Available Start: 07-08-2025 End: 07-08-2025 Bamboo flowsheet Bassam Aguilar DPM Work Phone: [facility] Start: 07-08-2025 End: 07-08-2025 Bamboo flowsheet Bassam Aguilar DPM Work Phone: [facility] Start: 07-07-2025 ambulatory Nanette Barajas Facility: [id number] Start: 07-03-2025 Non-patient / Non-visit Nat Weldon APRN -[facility] Work Phone: Start: 07-03-2025 End: 07-05-2025 Evaluation and management of inpatient Firas Seffo Facility:[facility] Start: 06-25-2025 ambulatory Kaia ramsey PhD [facility] Start: 06-24-2025 End: 06-25-2025 ambulatory MARY MARKUS [facility] Start: 06-19-2025 End: 06-19-2025 ambulatory Nanette Spainab Facility:[facility] Start: 06-18-2025 End: 06-18-2025 Bamboo flowsheet Cara Joshua CCC-A Work Phone: [facility] Start: 06-18-2025 End: 06-18-2025 Bamboo flowsheet Cara Joshua CCC-A Work Phone: [facility] Start: 06-18-2025 End: 06-18-2025 Clinical Support Cara Joshua CCC-A Work Phone: [facility] Comment on above: Asymmetrical sensori neural hearing loss (Primary Dx) Start: 05-22-2025 End: 05-22-2025 Bamboo flowsheet Bassam Aguilar DPM Work Phone: [facility] Start: 05-22-2025 End: 05-22-2025 Bamboo flowsmaik Aguilar DPM Work Phone: [facility] Start: 05-22-2025 End: 05-22-2025 Patient encounter procedure Bassam Aguilar DPM Work Phone: [facility] Comment on above: Diabetes mellitus du e to underlying condition with diabetic polyneuropathy, unspecified whether assisted insulin use (HCC) (Primary Dx); Pain due to onychomycosis of toenails of both feet; Venous insufficiency; Amputation of toe of right foot Start: 05-22-2025 End: 05-22-2025 ambulatory BASSAM AGUILAR Not Available Start: 05-21-2025 End: 05-21-2025 Bamboo flowsheet Gabriela Smith DPM Work Phone: [facility] Start: 05-21-2025 End: 05-21-2025 Bamboo flowsheet Gabriela Smith DPM Work Phone: [facility] Start: 05-21-2025 End: 05-21-2025 Office outpatient visit 25 minutes Gabriela Smith DPM Work Phone: [facility] Comment on above: Diabetes mellitus du e to underlying condition with diabetic polyneuropathy, unspecified whether assisted insulin use (HCC) (Primary Dx); Neuropathy; Right foot pain Start: 05-21-2025 End: 05-21-2025 ambulatory GABRIELA SMITH Not Available Start: 05-20-2025 End: 05-20-2025 ambulatory Nanette L Karl Facility:[facility] [place] [facility] Start: 05-19-2025 End: 05-19-2025 Telephone encounter Gabriela Smith DPM Work Phone: [facility] Start: 05-15-2025 End: 06-02-2025 ambulatory Nanette L Karl Facility:[facility] [place] [facility] Start: 05-14-2025 End: 05-14-2025 ambulatory Morgan Arnold PT Work Phone: [facility] Comment on above: Cervicalgia (Primary Dx); Imbalance; Unsteadiness on feet; Frequent falls Start: 05-14-2025 End: 05-14-2025 Bamboo flowsheet Morgan Arnold PT Work Phone: [facility] Start: 05-14-2025 End: 05-14-2025 Bamboo flowsheet Morgan Arnold PT Work Phone: [facility] Start: 05-07-2025 End: 05-07-2025 ambulatory Morgan Arnold PT Work Phone: [facility] Comment on above: Cervicalgia (Primary Dx); Imbalance; Unsteadiness on feet; Frequent falls Start: 05-07-2025 End: 05-07-2025 Bamboo flowsheet Morgan Arnold PT Work Phone: [facility] Start: 05-07-2025 End: 05-07-2025 Bamboo flowsheet Morgan Arnold PT Work Phone: [facility] Start: 05-01-2025 End: 05-01-2025 Office outpatient visit 25 minutes Gabriela Smith DPM Work Phone: [facility] Comment on above: Diabetes mellitus du e to underlying condition with diabetic polyneuropathy, unspecified whether assisted insulin use (HCC) (Primary Dx); Neuropathy; Right [...] [facility] Start: 04-30-2025 End: 04-30-2025 Bamboo flowsmaik Wong MD Work Phone: [facility] [...] Start: 04-15-2025 End: 04-15-2025 Bamboo flowsheet Morgan Blank Catalina PT Work Phone: [facility] Start: 04-15-2025 End: 04-15-2025 Bamboo flowsheet Morgan Blank Catalina PT Work Phone: [facility] Start: 04-15-2025 End: 04-15-2025 ambulatory Morgan Arnold PT Work Phone: [facility] Comment on above: Cervicalgia (Primary Dx); Imbalance; Unsteadiness on feet; Frequent falls Start: 04-14-2025 End: 04-14-2025 ambulatory Nanette L Karl Facility:[facility] [place] [facility] Start: 04-09-2025 End: 05-05-2025 ambulatory Nanette L Karl Facility:[facility] [place] [facility] Start: 04-08-2025 End: 04-08-2025 Clinisync Result Encounter David Wong MD Work Phone: [facility] External Department Unsolicited Start: 04-08-2025 End: 04-08-2025 Clinisync Result Encounter David Wong MD Work Phone: [facility] External Department Unsolicited Start: 04-03-2025 End: 04-03-2025 ambulatory Deo Hickman Work Phone: [facility] Work Phone: Start: 04-03-2025 End: 04-03-2025 Patient encounter procedure Marce Bowen [facility] Neurosurgery Work Phone: Start: 03-31-2025 End: 03-31-2025 Bamboo flowsheet David Wong MD Work Phone: [facility] [place] Start: 03-31-2025 End: 03-31-2025 Bamboo flowsheet David [facility] Start: 03-31-2025 End: 03-31-2025 Office outpatient new 45 minutes David Wong MD Work Phone: [facility] Comment on above: Imbalance (Primary D x); Asymmetric SNHL (sensorineural hearing loss); Class 3 severe obesity due to excess calories without serious comorbidity with body mass index (BMI) of 45.0 to 49.9 in adult ([facility]-HCC); Claustrophobia Start: 03-31-2025 End: 03-31-2025 ambulatory DAVID WONG Not Available Start: 03-28-2025 End: 03-28-2025 Bamboo flowsheet [facility]a [facility]om [facility] Start: 03-28-2025 End: 03-28-2025 Bamboo flowsheet Cara Boom [facility] Start: 03-28-2025 Preprocedural examin ation done David Wong MD Work Phone: [facility] Start: 03-28-2025 End: 03-28-2025 Clinical Support Cara Joshua CCC-A [facility] Comment on above: Asymmetrical sensori neural hearing loss (Primary Dx); Tinnitus, bilateral; Balance problem Start: 03-26-2025 End: 03-26-2025 Patient encounter procedure [facility] Midd[facility] Work [facility]: Start: 03-20-2025 End: 03-20-2025 ambulatory MARY [facility] Start: 03-19-2025 End: 03-19-2025 ambulatory Deo Hickman Work Phone: [facility] Work Phone: Start: 03-19-2025 End: 03-19-2025 Patient encounter procedure Deo Hickman Work Phone: [facility] V[facility] [place] Work Phone: Start: 03-14-2025 ambulatory Nanette L Karl Facility: [facility] Start: 03-13-2025 End: 03-13-2025 Patient encounter procedure Deo Hickman Work Phone: [facility] Work Phone: Start: 03-13-2025 End: 03-13-2025 ambulatory Deo Hickman Work Phone: [facility] Work Phone: Start: 03-13-2025 End: 03-13-2025 ambulatory [facility] Work Phone: Start: 03-13-2025 End: 03-13-2025 Patient encounter procedure [facility] Neurosurgery Work Phone: Start: 03-13-2025 End: 03-13-2025 ambulatory Haider Hickman Facility:[facility] [place] [facility] Start: 03-11-2025 End: 04-02-2025 ambulatory Nanette L Karl Facility:[facility] [place] [facility] Start: 03-06-2025 End: 03-06-2025 Bamboo flowsheet Bassam Aguilar DPM Work Phone: [facility] Start: 03-06-2025 End: 03-06-2025 Bamboo flowsheet Bassam Aguilar DPM Work Phone: [facility] Start: 03-06-2025 End: 03-06-2025 ambulatory [facility] Start: 03-06-2025 End: 03-06-2025 Patient encounter procedure Bassam Aguilar DPM Work Phone: [facility] Comment on above: Diabetes mellitus du e to underlying condition with diabetic polyneuropathy, unspecified whether intermediate teacher insulin use ([facility]/HCC) (Primary Dx); Pain due to onychomycosis of toenails of both feet; Venous insufficiency; Amputation of toe of right foot (CMS/HCC) Start: 03-06-2025 End: 03-06-2025 ambulatory BASSAM AGUILAR Not Available Start: 02-24-2025 ambulatory Nanette Barajas Facility: [id number] Start: 02-18-2025 End: 02-18-2025 ambulatory Haider Hickman Facility:[facility] Joc[facility] silva Start: 02-10-2025 End: 02-10-2025 ambulatory Miguelangel Mac MD Facility: [facility] Start: 02-04-2025 End: 02-04-2025 ambulatory Haider Hickman Facility:[facility] Start: 01-20-2025 End: 01-20-2025 ambulatory Haider Hickman Facility:[facility] J[facility] Start: 01-20-2025 End: 01-20-2025 ambulatory Miguelangel Mac MD Facility: [facility] Start: 01-13-2025 End: 01-13-2025 ambulatory Miguelangel Mac MD Facility: [facility] Start: 01-01-2025 End: 01-01-2025 ambulatory Tomi Maria Facility:[facility] Start: 12-19-2024 End: 12-19-2024 ambulatory [facility] Start: 12-18-2024 End: 12-18-2024 ambulatory [facility] Start: 12-18-2024 End: 12-18-2024 Encounter for other preprocedural examination [facility] Start: 12-04-2024 End: 12-04-2024 ambulatory Nanette Barajas Facility:[facility] J[facility] Start: 12-04-2024 End: 12-04-2024 ambulatory Tomi Maria Facility:[facility] Start: 12-02-2024 End: 12-02-2024 ambulatory Miguelangel Mac MD Facility:[facility] Start: 11-27-2024 End: 11-27-2024 ambulatory Tomi Canasi Facility:[facility] Start: 11-18-2024 End: 11-18-2024 ambulatory Haider Hickman Facility: [facility] Start: 11-12-2024 End: 11-12-2024 ambulatory Haider Hickman Facility: [facility] Start: 11-07-2024 ambulatory Tomi Kiseri ty:[facility] Start: 11-06-2024 ambulatory Araceli Mile BERMUDEZ Facility : [facility] Start: 11-04-2024 End: 11-04-2024 ambulatory Haider Hickman Facility: [facility] Start: 10-24-2024 End: 10-24-2024 ambulatory Haider Hickman Facility: [facility] Start: 10-17-2024 End: 10-17-2024 Bamboo flowsheet Bassam Aguilar DPM Work Phone: [facility] Start: 10-17-2024 End: 10-17-2024 Bamboo flowsheet Bassam Aguilar DPM Work Phone: [facility] Start: 10-17-2024 End: 10-17-2024 Patient encounter procedure Bassam Aguilar DPM Work Phone: [facility] Comment on above: Diabetes mellitus du e to underlying condition with diabetic polyneuropathy, unspecified whether intermediate teacher insulin use ([facility]) (Primary Dx); Pain due to onychomycosis of toenails of both feet; Venous insufficiency Start: 10-17-2024 End: 10-17-2024 ambulatory BASSAM AGUILAR Not Available Start: 10-15-2024 End: 10-15-2024 ambulatory Haider Hickman Facility:[facility] Start: 09-09-2024 End: 09-09-2024 ambulatory Haider Hickman Facility:[facility] Start: 09-09-2024 End: 09-09-2024 ambulatory Miguelangel Mac MD Facility:[facility] Start: 09-02-2024 End: 09-02-2024 ambulatory Miguelangel Mac MD Facility: [facility] Start: 08-29-2024 End: 08-29-2024 Bamboo flowsheet Christopher Lalo DO Work Phone: [facility] Start: 08-29-2024 End: 08-29-2024 Bamboo flowsheet Christophbrenda Burgosett DO Work Phone: [facility] Start: 08-29-2024 End: 08-29-2024 Office outpatient new 45 minutes Jamisonophbrenda May DO Work Phone: [facility] Comment on above: Right foot pain (Brie jesse Dx); Diabetic polyneuropathy associated with type 2 diabetes mellitus (CMS/HCC) Start: 08-29-2024 End: 08-29-2024 ambulatory MATTHEW MAY Not Available Start: 08-15-2024 End: 08-15-2024 ambulatory Haider Hickman [facility] Start: 08-14-2024 End: 08-14-2024 ambulatory HAIDER HICKMAN Facility:[facility] Start: 08-14-2024 End: 08-14-2024 Patient encounter procedure Chiqui Robles MD Work Phone: Neurology Pain Comment on above: 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; Chronic toe pain, right foot; Class 3 severe obesity with serious comorbidity and body mass index (BMI) of 40.0 to 44.9 in adult, unspecified obesity type ([facility]) Start: 08-08-2024 End: 08-08-2024 Bamboo flowsheet Bassam [...] underlying condition with diabetic polyneuropathy, unspecified whether intermediate teacher insulin use (CMS/HCC); Pain due to onychomycosis of toenails of both feet Start: 08-08-2024 End: 08-08-2024 ambulatory BASSAM AGUILAR Not Available Start: 08-07-2024 End: 08-07-2024 ambulatory [facility] Start: 08-06-2024 End: 08-06-2024 Bamboo flowsheet Khai [...] Start: 08-01-2024 End: 08-01-2024 ambulatory Haider Hickman Facility:[facility] Start: 07-31-2024 End: 07-31-2024 Bamboo flowsheet Shyam [...] underlying condition with diabetic polyneuropathy, unspecified whether intermediate teacher insulin use (CMS/HCC); Amputation of right great toe (CMS/HCC) Start: 07-31-2024 End: 07-31-2024 ambulatory SHYAM CAM Not Available Start: 07-24-2024 End: 07-24-2024 Bamboo flowsheet Shyam Cam DPM FACFAS Work Phone: [facility] Start: 07-24-2024 End: 07-24-2024 Bamboo flowsheet Shyam Higginskilo DPM FACFAS Work Phone: [facility] Start: 07-24-2024 End: 07-24-2024 Office outpatient visit 25 minutes Shyam Cam DPM FACFAS Work Phone: [facility] Comment on above: 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); Diabetes 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, unspecified whether intermediate teacher insulin use ([facility]) Start: 07-24-2024 End: 07-24-2024 ambulatory SHYAM CAM Not Available Start: 07-23-2024 End: 07-23-2024 Bamboo flowsheet Arlen Sanchez DO Work Phone: [facility] Start: 07-23-2024 End: 07-23-2024 Bamboo flowsheet Arlen Sanchez DO Work Phone: [facility] Start: 07-23-2024 End: 07-23-2024 Office outpatient visit 25 minutes Arlen Sanchez DO Work Phone: [facility] Comment on above: Internal [...] Change Request Start: 07-19-2024 End: 07-19-2024 [facility] Start: 07-17-2024 End: 07-18-2024 ambulatory Chiqui Robles MD Work Phone: Neurology Pain Comment on above: Medication Question Start: 07-04-2024 End: 07-08-2024 Telephone encounter Arlen Sanchez DO Work Phone: [facility] Comment on above: MRI Start: 07-03-2024 End: 07-03-2024 Bamboo flowsheet Shyam Georgiana Cam DPM FACFAS Work Phone: [facility] Start: 07-03-2024 End: 07-03-2024 Bamboo flowsheet Shyam Cam DPM FACFAS Work Phone: [facility] Start: 07-03-2024 End: 07-03-2024 Office outpatient visit 15 minutes Shyam Cam DPM FACFAS Work Phone: [facility] Comment on above: 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) Start: 07-01-2024 End: 07-01-2024 Bamboo flowsheet Chelle Brandon DRY WALL INSTALLER Work Phone: [facility] Start: 07-01-2024 End: 07-01-2024 Bamboo flowsheet Chelle Blank Aplsheldon DRY WALL INSTALLER Work Phone: [facility] Start: 07-01-2024 End: 07-01-2024 Office outpatient visit 15 minutes Chelle Brandon DRY WALL INSTALLER Work Phone: [facility] Comment on above: Left shoulder pain, unspecified chronicity (Primary Dx); Arthritis of left acromioclavicular joint; Glenohumeral arthritis, left; Impingement of left shoulder; Internal derangement of left shoulder Start: 06-26-2024 End: 06-26-2024 ambulatory [facility] Start: 06-25-2024 End: 06-25-2024 Office outpatient visit 15 minutes Levar Cam DPM FACFAS Work Phone: [facility] Comment on above: 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); Diabetes 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, unspecified whether assisted insulin use ([facility]); Venous insufficiency; Non-pressure chronic ulcer of other part of right lower leg with fat layer exposed ([facility]) Start: 06-25-2024 End: 06-25-2024 Bamboo flowsheet Levar R Dolce DPM FACFAS Work Phone: [facility] Start: 06-25-2024 End: 06-25-2024 Bamboo flowsheet Levar R Dolce DPM FACFAS Work Phone: [facility] Start: 06-19-2024 End: 06-19-2024 Telephone encounter Shyam Cam DPM FACFAS Work Phone: [facility] Start: 06-19-2024 End: 06-19-2024 Office outpatient visit [...] underlying condition with diabetic polyneuropathy, unspecified whether assisted insulin use ([facility]); Amputation of right great toe ([facility]) Start: 06-12-2024 End: 06-12-2024 Bamboo flowsheet Chelle Brandon DRY WALL INSTALLER Work Phone: [facility] Start: 06-12-2024 End: 06-12-2024 Bamboo flowsheet Chelle Brandon DRY WALL INSTALLER Work Phone: [facility] Start: 06-12-2024 End: 06-12-2024 Office outpatient visit 25 minutes Chelle Brandon DRY WALL INSTALLER Work Phone: [facility] Comment on above: Left shoulder pain, unspecified chronicity (Primary Dx); Arthritis of left acromioclavicular joint; Glenohumeral arthritis, left; Impingement of left shoulder Start: 06-07-2024 End: 06-07-2024 [facility] Britney Hyde PhD Work Phone: Pain Recovery Comment on above: Adjustment disorder with depressed mood (Primary Dx); Complex regional pain syndrome type II of right lower limb; Chronic toe pain, right foot Start: 06-03-2024 End: 06-03-2024 Telephone encounter Chelle Brandon DRY WALL INSTALLER Work Phone: [facility] Start: 05-23-2024 ambulatory Chiqui chapa MD Work Phone: Neurology Pain Comment on above: taking memantine HCL Start: 05-07-2024 ambulatory Morgan Trinidad Therapist Work Phone: Pain Recovery Comment on above: next step, resources Start: 05-07-2024 E-mail encounter fro m caregiver Morgan Trinidad Therapist Work Phone: Pain Recovery Start: 05-06-2024 End: 05-06-2024 [facility] Morgan Trinidad Therapist Work Phone: Pain Recovery Comment on above: Adjustment disorder with depressed mood (Primary Dx); Complex regional pain syndrome type II of right lower limb; Chronic toe pain, right foot Start: 04-24-2024 End: 04-24-2024 ambulatory HAIDER HICKMAN Facility:[facility] Start: 04-24-2024 End: 04-24-2024 Patient [...] (HCC) Start: 04-03-2024 End: 04-03-2024 ambulatory HERBERTH ARAUJO Facility:[facility] Start: 03-19-2024 Telephone encounter Herberth meyers MD, PhD Work Phone: Pain Management Comment on above: Nurse Triage Call Start: 03-08-2024 End: 03-08-2024 ambulatory Haider Hickman Facility:[facility] Start: 02-29-2024 End: 02-29-2024 ambulatory HERBERTH A VAN Facility:[facility] Start: 02-29-2024 End: 02-29-2024 Patient [...] Start: 02-05-2024 End: 02-05-2024 ambulatory FRANCOISE SINGLETARY Facility:[facility] Start: 02-05-2024 End: 02-05-2024 Patient encounter procedure Francoise Singletary MD Work Phone: Pain Management Comment on above: Chronic toe pain, ri ght foot (Primary Dx); Painful diabetic neuropathy (HCC); Class 3 severe obesity with serious comorbidity and body mass index (BMI) of 40.0 to 44.9 in adult, unspecified obesity type (HCC) Start: 09-12-2023 End: 09-12-2023 ambulatory Tondra Mapus Other [employer] Other Start: 09-12-2023 Telephone encounter Aldo Middleton [facility] Start: 09-11-2023 (DM) Diabetes Tondra Mapus [facility] Start: 09-11-2023 End: 09-11-2023 ambulatory MD Scarlet Johnson Work Phone: [employer] Other Start: 09-11-2023 End: 09-11-2023 Discharged Recurring MD Scarlet Johnson Work Phone: [facility] Work Phone: Start: 09-11-2023 End: 09-11-2023 Patient encounter procedure MD Scarlet Johnson Work Phone: [facility] Work Phone: Start: 08-24-2023 End: 08-24-2023 Patient encounter procedure MD Scarlet Johnson Work Phone: [facility]Ultras[facility] Start: 08-24-2023 End: 08-24-2023 ambulatory MD Scarlet Johnson Work Phone: [facility] Work Phone: Start: 08-24-2023 Office outpatient ne w 60 minutes Eligio Soni [facility] Start: 08-24-2023 End: 08-24-2023 Patient encounter procedure MD Scarlet Johnson Work Phone: [facility] Vascular Surgery Work Phone: Start: 06-14-2023 End: 06-14-2023 ambulatory Tondra Mapus Other [facility] [employer] Other Start: 06-14-2023 Telephone encounter Tondra Mapus [facility] Start: 06-09-2023 End: 06-09-2023 ambulatory Carito West Other [facility] [employer] Other Start: 06-09-2023 Nursing evaluation o f patient and report Carito West [facility] Start: 06-09-2023 Registered Recurring MD Scarlet franks Work Phone: [facility] Work Phone: Start: 05-31-2023 End: 05-31-2023 ambulatory Tondra Mapus Other [employer] Other Start: 05-31-2023 Telephone encounter Aldo Middleton [facility] Start: 03-07-2023 End: 03-07-2023 ambulatory Terry Kelley Other [employer] Other Start: 03-07-2023 Follow-up encounter Terry moreno [facility] Start: 02-17-2023 End: 02-17-[address] MERT WOODARD . Facility:[facility] Start: 02-14-2023 (DM) Diabetes Tondra Emi [facility] Start: 02-14-2023 End: 02-14-2023 ambulatory Tondra Juanitaus Other [employer] Other Start: 01-20-2023 ([facility] RD FU) [facility] F/ U Registerd Loom Inspector Carito West [facility] Start: 01-20-2023 End: 01-20-2023 ambulatory Carito West Other [employer] Other Start: 01-05-2023 End: 01-05-2023 ambulatory Terry Kelley Other [employer] Other Start: 01-05-2023 Follow-up encounter Terry [...] ambulatory DR TERRY KELLEY Facility:[facility] Start: 11-24-2022 ([facility] WMNI) WMN Init ial Provider Carito West [facility] Start: 11-24-2022 End: 11-24-2022 ambulatory Carito West Other [employer] Other Start: 11-22-2022 End: 11-22-2022 ambulatory Tondra Mapus Other [employer] Other Start: 11-22-2022 Nursing evaluation o f patient and report Aldo Middleton [facility] Start: 11-18-2022 End: 11-18-2022 ambulatory Terry Kelley Other [employer] Other Start: 11-18-2022 Nutrition therapy Terry Kelley [facility] Start: 11-08-2022 End: 11-09-[address] SCARLET JOHNSON . Facility:[facility] Start: 11-07-2022 (DM) Diabetes Tonboom Middleton [facility] Start: 11-07-2022 End: 11-07-2022 ambulatory Tondra Mapus Other [employer] Other Start: 10-18-2022 (RD) Deckhand Engineer Carito West [facility] Start: 10-18-2022 End: 10-18-2022 ambulatory Carito West Other [employer] Other Start: 08-18-2022 End: 08-19-[address] BRITTNY MORALES Facility:[facility] Start: 2022 ([facility] DB FU) [facility] Diabetes F/U Carito West [facility] Start: 2022 End: 08-11-[address] ARACELI BERMUDEZ [place] [employer] Other Start: 07-29-2022 End: 07-30-[address] SCARLET JOHNSON . Facility:[facility] Start: 07-27-2022 (DM) Diabetes Tondra Mapus [facility] Start: 07-27-2022 End: 07-27-2022 ambulatory Tondra Mapus Other [employer] Other Start: 06-08-2022 (Loom Inspector) Loom Inspector Carito moreno [facility] Start: 06-08-2022 End: 06-08-2022 ambulatory Carito West Other [employer] Other Start: 04-21-2022 (DM) Diabetes Tondra Mapus [facility] Start: 04-21-2022 End: 04-21-2022 ambulatory Tondra Mapus Other [employer] Other Start: 04-21-2022 Telephone encounter Tondra Mapus [facility] Start: 04-07-2022 End: 04-08-[address] SCARLET JOHNSON . Facility: Start: 10-21-2021 (DM) Diabetes Tondra Mapus [facility] Start: 10-21-2021 End: 10-21-2021 ambulatory Tondra Mapus Other [employer] Other Start: 07-21-2021 Office outpatient ne w 45 minutes Morgan Kunz [facility] Procedures Date Procedure Procedure Detail Performing Clinician Start: 06-25-2025 End: 06-25-2025 Psychotherapy w/patient 60 minutes Kaia Torres PhD Work Phone: Start: 06-11-2025 End: 06-11-2025 Psychotherapy w/patient 60 minutes Kaia Torres PhD Work Phone: Start: 05-28-2025 End: 05-28-2025 Psychotherapy w/patient 60 minutes Kaia Torres PhD Work Phone: Start: 05-14-2025 End: 05-14-2025 Psychiatric diagnostic evaluation Kaia Torres PhD Work Phone: Start: 04-08-2025 MR HEAD/BRAIN WO CON Hi joselin Wong MD Work Phone: Start: 03-28-2025 AUDITORY FUNCTION TESTS Cara Joshua [facility] Work Phone: Start: 03-13-2025 X-ray of lumbar spin e, six views including bending views Deo Hickman Work Phone: Start: 06-19-2024 Radex foot complete minimum 3 views Shyam Cam DPM FACFAS Work Phone: Start: 06-12-2024 Arthrocentesis aspir &/inj major jt/bursa w/o us Chelle Brandon [employer] Work Phone: Start: 08-24-2023 Duplex scan of lower limb veins MD Scarlet Johnson Work Phone: Plan of Treatment Date Care Activity Detail Author Start: 11-12-2025 ambulatory Ambulatory Facility:[facility] Start: 08-20-2025 End: 08-20-2025 Patient encounter procedure 08/20/2025 2:45 PM EST Office Visit [facility] [address] [place] [address] Gabriela Smith DPM [address] [place] [address] [facility] Start: 08-07-2025 End: 08-07-2025 Patient encounter procedure 08/07/2025 10:00 AM EDT Procedure Visit [facility] [address] [place] [address] Bassam Aguilar, DPM [address] [place] [address] [facility] Start: 07-23-2025 [facility] Work Phone: Start: 07-17-2025 End: 07-17-2025 Patient encounter procedure 07/17/2025 2:00 PM EDT Office Visit [facility] [address] [email or web address] [address] [place] [phone] Bassam Aguilar DPM [address] [address] Osteomyelitis of ankle or foot, acute, right (HCC) (Primary Dx); Cellulitis of right foot; Diabetes 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, unspecified whether intermediate teacher insulin use (HCC); Venous insufficiency [facility] Comment on above: Osteomyelitis of ankle or foot, acute, r ight (HCC) (Primary Dx); Cellulitis of right foot; Diabetes 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, unspecified whether intermediate teacher insulin use (HCC); Venous insufficiency Start: 07-10-2025 End: 07-10-2025 Patient encounter procedure 07/10/2025 3:10 PM EDT Office Visit [facility] [address] [phone] Bassam Aguilar DPM [address] [address] [facility] Start: 07-09-2025 [facility] Work Phone: Start: 07-08-2025 End: 07-08-2025 Patient encounter procedure 07/08/2025 2:40 PM EDT Office Visit [facility] [address] [place] [phone] Bassam Aguilar DPM [address] [address] Diabetes 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, unspecified whether assisted insulin use (HCC) (Primary Dx); Cellulitis of right foot; Osteomyelitis of ankle or foot, acute, right (HCC) [facility] Comment on above: Diabetes mellitus due to underlying cond ition with diabetic polyneuropathy, unspecified whether assisted insulin use (HCC) (Primary Dx); Cellulitis of right foot; Osteomyelitis of ankle or foot, acute, right (HCC) Start: 07-05-2025 [facility] Start: 07-03-2025 Hospital admission [facility] Start: 07-03-2025 Referral to infectious diseases physician [facility] Start: 07-03-2025 Referral to client care manager [facility] Start: 07-03-2025 Referral to vascular surgeon [facility] Start: 06-25-2025 End: 06-25-2025 [facility] Work Phone: Start: 06-18-2025 End: 06-18-2025 Clinical Support [facility] Comment on above: Arrived Start: 06-11-2025 [facility] Work Phone: Start: 06-09-2025 Influenza vaccination Influenza Vaccine (#1) [facility] Start: 05-28-2025 End: 05-28-2025 [facility] Work Phone: Start: 05-22-2025 End: 05-22-2025 Patient encounter procedure [facility] Comment on above: Diabetes mellitus due to underlying cond ition with diabetic polyneuropathy, unspecified whether intermediate teacher insulin use (HCC) (Primary Dx); Pain due to onychomycosis of toenails of both feet; Venous insufficiency Start: 05-21-2025 End: 05-21-2025 Patient encounter procedure [facility] Comment on above: Arrived Start: 05-15-2025 End: 05-15-2025 Patient encounter procedure 05/15/2025 9:20 AM EDT Procedure Visit [facility] [address] [facility] [address] [place] [phone] Bassam Aguilar DPM 3006 [facility] [address] [place] [address] [facility] Start: 05-14-2025 End: 05-14-2025 ambulatory [facility] Start: 05-14-2025 [facility] Work Phone: Start: 05-07-2025 End: 05-07-2025 ambulatory [facility] Comment on above: Cervicalgia (Primary Dx); Imbalance; Unsteadiness on feet; Frequent falls Start: 05-01-2025 End: 05-01-2025 Patient encounter procedure 05/01/2025 10:00 AM EDT Office Visit [facility] [address] [place] [phone] Gabriela Simth DPM [address] [place] [address] [facility] Start: 04-30-2025 End: 04-30-2025 Patient encounter procedure [facility] Comment on above: Arrived Start: 04-29-2025 End: 04-29-2025 ambulatory 04/29/2025 1:00 PM EDT Treatment [facility] [address] [facility] [place] [address] Morgan Arnold, PT [address] [facility] [place] [address] [facility] Start: 04-23-2025 End: 04-23-2025 ambulatory 04/23/2025 1:00 PM EDT Treatment [facility] [address] [facility] [place] [address] Morgan Arnold, PT [address] [facility] [place] [address] [facility] Start: 04-15-2025 End: 04-15-2025 ambulatory [facility] Comment on above: Cervicalgia (Primary Dx); Imbalance; Unsteadiness on feet; Frequent falls; Vestibular dysfunction of both ears Start: 03-31-2025 End: 03-31-2025 Patient encounter procedure [facility] Comment on above: Arrived Start: 03-28-2025 End: 03-28-2025 Clinical Support [facility] Comment on above: Arrived Start: 03-13-2025 Patient referral [facility] Work Phone: Start: 03-06-2025 End: 03-06-2025 Patient encounter procedure 03/06/2025 9:10 AM EDT Procedure Visit [facility] [address] [place] [address] Bassam Aguilar DPM [address] [address] Diabetes 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, unspecified whether intermediate teacher insulin use (CMS/HCC) (Primary Dx); Pain due to onychomycosis of toenails of both feet; Venous insufficiency; Amputation of toe of right foot (CMS/HCC) [facility] Comment on above: Diabetes mellitus due to underlying cond ition with diabetic polyneuropathy, unspecified whether assisted insulin use (CMS/HCC) (Primary Dx); Pain due to onychomycosis of toenails of both feet; Venous insufficiency; Amputation of toe of right foot (CMS/HCC) Start: 02-03-2025 ambulatory Ambulatory Facility:[facility] Start: 01-21-2025 End: 01-21-2025 Patient encounter procedure 01/21/2025 3:10 PM EDT Office Visit [facility] [address] [place] [phone] Patricia [place], QUOC [address] [place] [address] [facility] Start: 12-26-2024 End: 12-26-2024 Patient encounter procedure 12/26/2024 11:00 AM EDT Procedure Visit [facility] [address] [place] [address] Bassam Aguilar DPM 3009 [facility] [address] [place] [address] [facility] Start: 10-17-2024 End: 10-17-2024 Patient encounter procedure [facility] Comment on above: Diabetes mellitus due to underlying cond ition with diabetic polyneuropathy, unspecified whether assisted insulin use ([facility]) (Primary Dx); Pain due to onychomycosis of toenails of both feet; Venous insufficiency Start: 08-29-2024 End: 08-29-2024 Patient encounter procedure 08/29/2024 9:30 AM EST Office Visit [facility] [address] [place] [phone] Matthew aMy, [address] [place] [address] Arrived [facility] Comment on above: Arrived Start: 08-27-2024 End: 08-27-2024 Patient encounter procedure 08/27/2024 3:15 PM EST Office Visit [facility] [address] [place] [phone] Maria Guadalupe Gayle, [address] [place], [place] [phone] [facility] [address] [facility] Start: 08-14-2024 End: 08-14-2024 Patient encounter procedure 08/14/2024 10:00 AM EST Office Visit Neurology Pain [address] [place] [address] Chiqui Robles MD [address] [place], [place] [id number] 1 Month Follow Up [facility] Comment on above: 1 Month Follow Up Start: 2024 RSV Vaccine (1 - 1-dose 75+ series) RSV Vaccine (1 - 1-dose 75+ series) [facility] Start: 08-08-2024 End: 08-08-2024 Patient encounter procedure [facility] Comment on above: Diabetes mellitus due to underlying cond ition with diabetic polyneuropathy, unspecified whether assisted insulin use ([facility]) (Primary Dx); Pain due to onychomycosis of toenails of both feet; Amputation of toe of right foot ([facility]) Start: 08-06-2024 End: 08-06-2024 Patient encounter procedure 08/06/2024 9:45 AM EDT Office Visit [facility] [address] [place] [phone] Khai Heard, DO [address] [place] [address] [facility] Start: 07-31-2024 End: 07-31-2024 [...] [address] [facility] [address] [place] [address] Bassam Aguilar, DPSherrell 3006 [facility] [address] [place] [address] [facility] Start: 07-09-2024 End: 07-09-2024 Patient encounter procedure 07/09/2024 9:45 AM EDT Office Visit [facility] [address] [facility] [address] [place] [address] Arlen Sanchez, DO 112 [facility] 150 [place] [address] [facility] Start: 07-03-2024 End: 07-03-2024 Professional / ancillary services management 07/03/2024 2:00 PM EDT Ancillary Procedure [facility] [address] [place] [address] [facility] Start: 07-03-2024 End: 07-03-2024 Patient encounter procedure [facility] Comment on above: Arrived Start: 07-02-2024 End: 07-02-2024 Professional / ancillary services management 07/02/2024 10:15 AM EDT Ancillary Procedure [facility] [address] [place] [address] [facility] Start: 07-01-2024 [...] EDT Office Visit [facility] [address] [facility] [place] [address] Levar Cam, DPM FACFAS [address] [place] [address] [facility] Start: 06-24-2024 End: 06-24-2024 Patient encounter procedure 06/24/2024 9:15 AM EDT Office Visit [facility] [address] [facility] [address] [place] [address] Chelle Brandon, DRY WALL INSTALLER [address] [place] [address] [address] [facility] Start: 06-20-2024 End: 06-20-2024 Patient encounter procedure 06/20/2024 12:20 PM EDT Procedure Visit [facility] EX[facility] DEP Shyam Cam, DPM [facility] [address] [place] [address] [facility] Start: 06-19-2024 End: 06-19-2024 Patient encounter procedure 06/19/2024 8:30 AM EDT Office Visit [facility] [address] [facility] [phone] Shyam Cam, DPM FACFAS [address] [place] [address] [facility] Start: 06-12-2024 End: 06-12-2024 Patient encounter procedure [facility] Comment on above: Left shoulder pain, unspecified chronici ty (Primary Dx); Arthritis of left acromioclavicular joint; Glenohumeral arthritis, left Start: 06-09-2024 Covid-19 Vaccine ( season) Covid-19 Vaccine ( season) [facility] Start: 06-09-2024 Influenza vaccination [facility] Start: 06-07-2024 End: 06-07-2024 ambulatory 06/07/2024 12:30 PM EDT [facility] [address] [place] [address] Britney Hyde, PhD [address] [place] [address] [facility] Comment on above: [facility] Start: 05-06-2024 End: 05-06-2024 ambulatory 05/06/2024 9:00 AM EDT [facility] [address] [place] [address] Morgan Trinidad, Therapist [address] [place] [address] [facility] Comment on above: PAIN PSYCH Start: 04-17-2024 End: 04-17-2024 Patient encounter procedure 04/17/2024 10:00 AM EDT Office Visit Pain Management [address] [phone] Eufemia Ortiz PA-C [address] [phone] SUTURAL REMOVAL Pain Management Comment on above: SUTURAL REMOVAL Start: 04-03-2024 End: 04-03-2024 Admission to same day surgery center 04/03/2024 10:00 AM EDT - 04/03/2024 11:05 AM EDT Surgery [facility] [address] [phone] Herberth Araujo MD, PhD [address] [place] [address] Right L4 and L5 DRG Trial Pain Management Comment on above: Right L4 and L5 DRG Trial Start: 04-03-2024 End: 04-03-2024 Prq impltj nstim electrode array epidural PERCUTANEOUS IMPLANT LEAD NEUROSTIM EPIDURAL TRIAL Chronic toe pain, right foot Complex regional pain syndrome type II of right lower limb 04/03/2024 10:00 AM EDT [facility] Start: 04-03-2024 Subsequent hospital visit by physician 04/03/2024 10:00 AM EDT Hospital Encounter Pain Management [address] [place] [address] Herberth Araujo MD, PhD [address] [place] [address] Chronic toe pain, right foot [M79.674, G89.29], Complex regional pain syndrome type II of right lower limb [G57.71] [facility] Management Comment on above: Chronic toe pain, right foot [M79.674, G 89.29], Complex regional pain syndrome type II of right lower limb [G57.71] Start: 10-09-2023 Advance Directive Discussion Advance Directive Discussion [facility] Start: 10-09-2023 Behavioral Health Screening Behavioral Health Screening [facility] Start: 06-09-2023 Covid-19 Vaccine ( season) Covid-19 Vaccine () [facility] Start: 10-16-2019 Pneumococcal Vaccine: 65+ Years (2 of 2 - PCV) Pneumococcal Vaccine: 65+ Years (2 of 2 - PCV) [facility] Start: 2014 Pneumococcal Vaccine: 65+ (1 of 1 - PCV) Pneumococcal Vaccine: 65+ (1 of 1 - PCV) [facility] Start: 2009 RSV Vaccine (1 - 1-dose 60+ series) RSV Vaccine (1 - 1-dose 60+ series) [facility] Start: 2009 RSV Vaccine (1 - Risk 60-74 years 1-dose series) RSV Vaccine (1 - Risk 60-74 years 1-dose series) [facility] Start: 1999 Shingrix Vaccine (1 of 2) Shingrix Vaccine (1 of 2) [facility] Start: 1994 Diabetes Screening Diabetes Screening [facility] Start: 1994 Screening for malignant neoplasm of colon [facility] Start: 1984 Lipid panel Lipid Screening [facility] Start: 1968 Urine microalbumin profile DTaP,Tdap,Td Vaccine (1 - Tdap) [facility] Start: 1967 Annual PCP Team Chronic Disease Visit Annual PCP Team Chronic Disease Visit [facility] Start: 1967 Anxiety Screening Anxiety Screening [facility] Start: 1967 Depression Screening Depression Screening [facility] Start: 1967 Hepatitis B surface antibody level LDL Cholesterol [facility] Start: 1967 Hepatitis C screening Hepatitis C Screening [facility] Start: 1959 Diabetic foot examination Diabetic Foot Exam [facility] Start: 1959 Glaucoma screening Dilated Retinal Exam [facility] Start: 1959 Hepatitis B screening Urine Albumin:Creatinine Ratio [facility] Start: 1955 Pneumococcal Vaccine: 65+ (1 of 2 - PCV) Pneumococcal Vaccine: 65+ (1 of 2 - PCV) [facility] Start: 1954 Hemoglobin A1c measurement HbA1C [facility] Start: 1949 Screening for malignant neoplasm of colon [facility] MR Lumbar spine WO contrast [facility] MR Lumbar spine WO contrast [facility] Patient Education [facility] Work Phone: Patient referral [facility] Work Phone: XR Lumbar spine Views [facility] Immunizations Immunization Date Immunization Notes Care Provider Fa cili 07-31-2024 influenza virus vaccine, unspecified formulation Khai Heard DO Work Phone: [facility] 06-15-2023 influenza virus vaccine, unspecified formulation Chelle Brandon DRY WALL INSTALLER Work Phone: [facility] 12-30-2020 COVID-19 Vaccine Moderna - Documentation Purposes Only Morgan Kunz Other [facility] 12-02-2020 COVID-19 Vaccine Moderna - Documentation Purposes Only Morgan Kunz Other [facility] Payers Date Payer Category Payer Self-pay [id number] 2021 Private Health Insurance [employer] [id number]. [id number] 2021 Unknown [id number]. 1.13.159.2. [id number] 2012 Medicare [id number]. 1.13.159.2. 7.3.012496.315 2012 Medicare [id number] 1959 Medicare [id number] 2.16.840.1.382458.19 1959 Unknown [id number] 2.16.840.1.446329.19 1949 Unknown [id number] 2.16.840.1.780913.3.579.2. 593 1949 Unknown [id number] 2.16.840.1.078929.3.579.2. 593 1949 Unknown [id number] 2.16.840.1.019850.3.579.2. 593 1949 Unknown [id number] 2.16.840.1.945461.3.579.2. 593 1949 Unknown [id number] 2.16.840.1.698689.3.579.2. 593 1949 Unknown [id number] 2.16.840.1.616170.3.579.2. 593 1949 Unknown [id number] 2.16.840.1.220379.3.579.2. 593 1949 Unknown [id number] 2.16.840.1.076867.3.579.2. 593 1949 Unknown [id number] 2.16.840.1.052813.3.579.2. 593 1949 Unknown [id number] 2.16.840.1.378544.3.579.2. 593 1949 Unknown [id number] 2.16.840.1.394567.3.579.2. 593 1949 Unknown [id number] 2.16.840.1.770137.3.579.2. 593 1949 Unknown [id number] 2.16.840.1.386046.3.579.2. 727 1949 Unknown [id number] 2.16.840.1.486316.3.579.2. 72 1949 Unknown [id number] 2.16.840.1.722190.3.579.2. 72 1949 Unknown [id number] 2.16.840.1.853325.3.579.2. 903 1949 Unknown [id number] 2.16.840.1.045617.3.579.2. 1949 Unknown [id number] 2.16.840.1.014211.3.579.2. 1949 Unknown [id number] 2.16.840.1.553607.3.579.2. 1949 Unknown [id number] 2.16.840.1.941922.3.579.2. 1949 Unknown [id number] 2.16.840.1.232702.3.579.2. 1949 Unknown [id number] 2.16.840.1.409591.3.579.2 1949 Unknown [id number] 2.16.840.1.336076.3.579.2. 1949 Unknown [id number] 2.16.840.1.846461.3.579.2. 1949 Unknown [id number] 2.16.840.1.752589.3.579.2. 1949 Unknown [id number] 2.16.840.1.410893.3.579.2. 1949 Unknown [id number] 2.16.840.1.073031.3.579.2. 1949 Unknown [id number] 2.16.840.1.212121.3.579.2. 1949 Unknown [id number] 2.16.840.1.733236.3.579.2. 1949 Unknown [id number] 2.16.840.1.981912.3.579.2. 1949 Unknown [id number] 2.16.840.1.925285.3.579.2. 1949 Unknown [id number] 2.16.840.1.860218.3.579.2. 1949 Unknown [id number] 2.16.840.1.419344.3.579.2. 1949 Unknown [id number] 2.16.840.1.312677.3.579.2 1949 Unknown [id number] 2.16.840.1.216409.3.579.2 1949 Unknown [id number] 2.16.840.1.141148.3.579.2 1949 Unknown [id number] 2.16.840.1.478244.3.579.2 1949 Unknown [id number] 2.16.840.1.542774.3.579.2 1949 Unknown [id number] 2.16.840.1.358162.3.579.2 1949 Unknown [id number] 2.16.840.1.505334.3.579.2 1949 Unknown [id number] 2.16.840.1.619773.3.579.2. 1949 Unknown [id number] 2.16.840.1.082411.3.579.2 1949 Unknown [id number] 2.16.840.1.910728.3.579.2 1949 Unknown [id number] 2.16.840.1.530745.3.579.2. 1949 Unknown [id number] 2.16.840.1.263376.3.579.2 1949 Unknown [id number] 2.16.840.1.901567.3.579.2. 1949 Unknown [id number] 2.16.840.1.317043.3.579.2 1949 Unknown [id number] 2.16.840.1.651373.3.579.2 1949 Unknown [id number] 2.16.840.1.368495.3.579.2 1949 Unknown [id number] 2.16.840.1.375331.3.579.2 1949 Unknown [id number] 2.16.840.1.869943.3.579.2 1949 Unknown [id number] 2.16.840.1.267845.3.579.2 1949 Unknown [id number] 2.16.840.1.995593.3.579.2 1949 Unknown [id number] 2.16.840.1.627648.3.579.2 1949 Unknown [id number] 2.16.840.1.949063.3.579.2 1949 Unknown [id number] 2.16.840.1.092899.3.579.2 1949 Unknown [id number] 2.16.840.1.768870.3.579.2 1949 Unknown [id number] 2.16.840.1.029924.3.579.2 1949 Unknown [id number] 2.16.840.1.278492.3.579.2 1949 Unknown [id number] 2.16.840.1.007202.3.579.2. 1258 1949 Unknown [id number] 2.16.840.1.237170.3.579.2. 1258 1949 Unknown [id number] 2.16.840.1.075175.3.579.2. 1258 1949 Unknown [id number] 2.16840.1.241720.3.579.2. 1258 1949 Unknown [id number] 2.16840.1.327288.3.579.2. 1258 1949 Unknown [id number] 2.16840.1.716613.3.579.2. 1258 1949 Unknown [id number] 2.840.1.694268.3.579.2. 1258 1949 Unknown [id number] 2.840.1.060617.3.579.2. 1258 1949 Unknown [id number] 2.840.1.663048.3.579.2. 1258 1949 Unknown [id number] 2.16840.1.073748.3.579.2. 1258 1949 Unknown [id number] 2.840.1.352022.3.579.2. 1258 1949 Unknown [id number] 2.16840.1.154391.3.579.2. 1258 1949 Unknown [id number] 2.16840.1.313971.3.579.2. 1258 1949 Unknown [id number] 2.16840.1.910216.3.579.2. 1258 1949 Unknown [id number] 2.16840.1.944758.3.579.2. 1258 1949 Unknown [id number] 2.16.840.1.538560.3.579.2. 1259 1949 Unknown [id number] 2.16.840.1.786744.3.579.2. 1259 1949 Unknown [id number] 2.16.840.1.192471.3.579.2. 1259 1949 Unknown [id number] 2.16.840.1.800141.3.579.2. 1258 1949 Unknown [id number] 2.16.840.1.496612.3.579.2. 1259 1949 Unknown [id number] 2.16.840.1.327423.3.579.2. 125 1949 Unknown [id number] 2.16.840.1.783899.3.579.2. 1259 1949 Unknown [id number] 2.16.840.1.466681.3.579.2. 727 1949 Unknown [id number] 2.16.840.1.394780.3.579.2. 727 Unknown [employer] Ins [id number] Unknown [id number] 2.16.840.1.309206.3.579.2. 531 Unknown [id number] 2.16.840.1.391394.3.579.2. 531 Unknown [id number] 2.16.840.1.109112.3.579.2. 531 Social History Date Type Detail Facility Unknown if ever smoked [employer] Other Start: 02-05-2024 End: 07-08-2025 Sex Assigned At [facility] Start: 1950 Sex Assigned At Male F [facility] Start: 07-09-2018 End: 05-18-2023 Tobacco smoking status TNIS Never smoked tobacco (finding) [facility] Start: 05-28-2025 Tobacco smoking status TNIS Tobacco smoking consumption unknown [facility] Start: 02-05-2024 End: 07-08-2025 History of Social function [facility] National Score (1-100), lower number is lower risk 67 [facility] Start: 1950 Sex Assigned At Not on file C [facility] Start: 05-18-2023 End: 02-29-2024 Tobacco use and exposure Smokeless tobacco non-user [facility] Start: 02-29-2024 End: 07-17-2025 Alcohol intake Ex-drinker (finding) [facility] Start: 03-13-2025 End: 03-20-2025 Sex Male (finding) [facility] Start: 05-14-2025 Alcohol intake Alcohol Use Details [facility] Start: 05-14-2025 Tobacco use and exposure Non-Smoking Tobacco Use Details [facility] Sexual Orientation Straight or heterosexual [facility] Work Phone: NEGATED: Highlighted rowStart: NINF History of tobacco use Passive smoker [facility] NEGATED: Highlighted rowStart: 05-14-2025 Tobacco smoking status NHIS Never smoker [facility] NEGATED: Highlighted rowStart: 05-14-2025 History of tobacco use Current non-smoker [facility] Medical Equipment Procedure Code Equipment Code [...] [id number] Start: 04-03-2024 Clinical Notes 07-21-2021 to 07-17-2025 Bassam Nur Jeff, DPM - 07/17/2025 2:00 PM EDTNicpanchitomariann Nur Jeff, DPM - 07/08/2025 2:40 PM EDT Note Date & Type Note Facility 07-17-2025 History of Presen t illness Narrative Patient: Dong [place] : 1950 PCP: Haider Hickman MD SUBJECTIVE This is a 74 y.o. male that presents today 14 days s/p right 1st ray amputation with I and D Pt denies n/f/v/c and has minimal pain to post op site. Pt states that they have been keeping dressing dry and intact and have been partial weight-bearing to post op foot as unable to be true NWB due to knee and balance issues. Pt presents today for follow up. Patient is type 2 diabetic Allergies: Allergies Allergen Reactions Cefuroxime Unknown Celecoxib Unknown Cephalosporins Other Reaction(s): Unknown Reaction Diflunisal Unknown Dulaglutide Unknown Ibuprofen Unknown Liraglutide Unknown Metformin Hcl Unknown Naproxen Unknown Nsaids Other Rofecoxib Unknown Sulindac Unknown Past Medical History: Past Medical History: Diagnosis Date COVID-19 vaccine series completed Diabetes (HCC) Hypercholesterolemia Hypertension Neuropathy in diabetes ([facility]) PVD (peripheral vascular disease) Stress fracture Medications: [...] 600-5 MG-MCG tablet, , Disp: , Rfl: Capsaicin-Cleansing Gel (Qutenza, 4 Patch,) 8 % patch, Apply 1 patch topically every 3 (three) months Follow instructions to prepare site. Prescriber to avinash area. Once applied, remove after 30 minutes and clean area with supplied gel., Disp: 1 patch, Rfl: 3 Januvia 100 MG tablet, Take 100 mg by mouth Daily, Disp: , Rfl: losartan (Cozaar) 50 MG tablet, Take 100 mg by mouth at bedtime, Disp: , Rfl: nitroglycerin (Nitrostat) 0.4 MG SL tablet, , Disp: , Rfl: pioglitazone (Actos) 30 MG tablet, Take 30 mg by mouth Daily, Disp: , Rfl: Rezdiffra 100 MG tablet, , Disp: , Rfl: simvastatin (Zocor) 40 MG [...] 75 MG tablet, , Disp: , Rfl: ROS: General: denies fever, chills, fatigue, malaise OBJECTIVE LE EXAM: Derm: Sutures intact to right foot with negative erythema, negative drainage, minimal edema with negative clinical signs of infection. Vascular: Palpable pedal pulses to right foot Neuro: Gross sensation intact to right foot. Musculoskeletal: Negative pain on palpation to right calf. Ortho: Ankle range of motion less than 10 degrees of dorsiflexion at right ankle joint. ASSESSMENT 14 days s/p Right foot I and D and of right 1st ray amputation 1. Osteomyelitis of ankle or foot, acute, right (HCC) 2. Cellulitis of right foot 3. Diabetes 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, unspecified whether assisted insulin use ([facility]) 4. Venous insufficiency PLAN Patient to keep dry sterile dressing intact and keep dressing dry with non weightbearing. Patient may take anti-inflammatories as needed for pain. May continue with ice to foot as needed p.r.n. Patient to minimize weight-bearing as he is unable to use knee scooter and has problems with balance and bathroom privileges only and dispensed postop shoe today Bassam Aguilar DPM documented in this encounter [facility] 07-08-2025 History of Presen t illness Narrative Patient: Dong Whitmore : 1950 PCP: Haider Hickman MD SUBJECTIVE This is a 74 y.o. male that presents today 5 days s/p right 1st ray amputation with I and D Pt denies n/f/v/c and has minimal pain to post op site. Pt states that they have been keeping dressing dry and intact and have been partial weight-bearing to post op foot Pt presents today for follow up. Patient is type 2 diabetic Allergies: Allergies Allergen Reactions Cefuroxime Unknown Celecoxib Unknown Cephalosporins Other Reaction(s): Unknown Reaction Diflunisal Unknown Dulaglutide Unknown Ibuprofen Unknown Liraglutide Unknown Metformin Hcl Unknown Naproxen Unknown Nsaids Other Rofecoxib Unknown Sulindac Unknown Past Medical History: Past Medical History: Diagnosis Date COVID-19 vaccine series completed Diabetes ([facility]) Hypercholesterolemia Hypertension Neuropathy in diabetes ([facility]) PVD (peripheral vascular disease) Stress fracture Medications: [...] 600-5 MG-MCG tablet, , Disp: , Rfl: Capsaicin-Cleansing Gel (Qutenza, 4 Patch,) 8 % patch, Apply 1 patch topically every 3 (three) months Follow instructions to prepare site. Prescriber to avinash area. Once applied, remove after 30 minutes and clean area with supplied gel., Disp: 1 patch, Rfl: 3 Januvia 100 MG tablet, Take 100 mg by mouth Daily, Disp: , Rfl: losartan (Cozaar) 50 MG tablet, Take 100 mg by mouth at bedtime, Disp: , Rfl: nitroglycerin (Nitrostat) 0.4 MG SL tablet, , Disp: , Rfl: pioglitazone (Actos) 30 MG tablet, Take 30 mg by mouth Daily, Disp: , Rfl: Rezdiffra 100 MG tablet, , Disp: , Rfl: simvastatin (Zocor) 40 MG [...] 75 MG tablet, , Disp: , Rfl: ROS: General: denies fever, chills, fatigue, malaise OBJECTIVE LE EXAM: Derm: Sutures intact to right foot with negative erythema, negative drainage, minimal edema with negative clinical signs of infection. Vascular: Palpable pedal pulses to right foot Neuro: Gross sensation intact to right foot. Musculoskeletal: Negative pain on palpation to right calf. Ortho: Ankle range of motion less than 10 degrees of dorsiflexion at right ankle joint. ASSESSMENT 5 days s/p Right foot I and D and of right 1st ray amputation 1. Diabetes 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, unspecified whether assisted insulin use (HCC) 2. Cellulitis of right foot 3. Osteomyelitis of ankle or foot, acute, right (HCC) PLAN Patient to keep dry sterile dressing intact and keep dressing dry with non weightbearing. Patient may take anti-inflammatories as needed for pain. May continue with ice to foot as needed p.r.n. Patient to continue with oral antibiotics Patient to minimize weight-bearing as he is unable to use knee scooter and has problems with balance and bathroom privileges only and dispensed postop shoe today Postop shoe dispensed today to the right foot Bassam Aguilar DPM documented in this encounter [facility] 07-03-2025 Evaluation note Diagnosis Onset Date Resolution Acute hematogenous osteomyelitis, right ankle and foot acute July 03, 2025 4:13pm Bilateral lower extremity edema acute July 03, 2025 4:13pm Cellulitis acute June 4:13pm Cellulitis of right foot acute July 03, 2025 4:13pm Diabetes 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 acute July 03, 2025 4:13pm Hemosiderin pigmentation of lower extremity due to varicose veins acute June 4:13pm Venous hypertension of both lower extremities June, acute July 03, 2025 4:13pm Wound of right foot acute Sept mb2024 4:13pm [facility] Work Phone: 1([phone]) 417-936109-17-2025 Evaluation note* Type Assessment Date assessment Anxiety disorder due to known ph ysiological condition [facility] Work Phone: 1([phone]) 870-164509-16-2025 [facility]Cardiovascular Medicine [facility] SUBJECTIVE Chief Complaint Patient presents with [...] PCI to LCx and RCA, - 2012) Venous insufficiency 06/24/2025 He c/o ongoing right toe pain. He has seen many specialists and no one has been able to help. He has seen vascular as well - they did testing earlier this year and told him that he had good blood flow - Dr. Soni in [place]/[facility]. He c/o increased leg swelling to right [...] running 130-150s/70-80s. He follows with endocrinology at [facility]. GI would like to start something for [...] with lymphedema. He follows with endocrinology in [place]. He has MILLER - this is unchanged. [...] at a weightloss program at [facility]. 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 01/23/2023 He is down about 10lbs since [...] of right lower limb Coronary arteriosclerosis in [place] artery Current use of insulin ([facility]/HCC) Dietary counseling and surveillance Benign hypertensive heart [...] 2-Gee [Liraglutide] OBJECTIVE Visi (more content not included)...[facility]09-10-2025 History of Present illness Narrative* YULISA Sanchez - 06/18/2025 9:30 AM EDT Hearing Aid Discussion: Pt here for hearing [...] want smaller custom aids. Our office uses [employer] for custom aids. [employer] has 2 options: Signature CIC or Edge CIC. Signature CIC is rechargeable and waterproof but has no connectivity (cannot stream, use holley, or use remote control.) A button can be put on the faceplate for basic volume adjustments. Edge CIC uses a 312 battery, is waterproof, and can stream to the phone or the [employer] holley. Both Signature and Edge CIC only comein mid, advanced, or premium technology (16, 20, 24). Pt states he wants to think things over. He only can afford the 16 circuit. 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 Pain due to [...] shoes Bassam Aguilar DPM documented in this encounterSaint Luke's [id number] History of Present illness Narrative* Gabriela Smith [...] additional applications as needed. documented in this encounterSaint Luke's [id number] Instructions* Patient Instructions* Gabriela Smith DPM - [...] topical aloe vera gel and take an wdrk-kbz-pimqakw pain medication such as Tylenol or Ibuprofen. [...] than every 3 months. documented in this [facility]08-11-2025 Telephone encounter Note* Telephone Encounter - Gabriela Smith DPM - 05/19/2025 12:05 PM EDT Rx for Qutenza was sent to the patient's preferred pharmacy. [facility] [id number] Miscellaneous Notes* Telephone Encounter - Gabriela Smith DPM - 05/19/2025 12:05 PM EDT Rx for Qutenza was sent to the patient's preferred pharmacy. documented in this [facility]08-07-2025 NotePatient Education Caregiving Fall Prevention in the [...] Keep items that you use often in vtoa-ez-hfwix places. Lower the shelves around your home [...] the way. ??? Do not use floor turkmen or wax that makes floors slippery. What [...] Control and Prevention, [place]: cdc.gov ??? National [place] on Aging: keena.nih.gov ??? National [place] on Aging: keena.nih.gov Contact a health care provider if: ??? You are afraid of falling at home. ??? You feel weak, drowsy, or dizzy at home. ??? You fall at home. Get help right away if you: ??? Lose consciousness or have trouble moving after a fal (more content not included)...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 Prior PT at [facility] with inconsistent results leading to this referral [...] and low motivation in home environment makes assisted improvement ofthis condition difficult. Continue to encourage [...] postural training. General UE/scapular/core/LE strengthening to assist intermediate teacher management (15 Min); Recumbent Bike (10 Min-Unsupervised) [...] and low motivation in home environment makes intermediate teacher improvement of this condition difficult. Continue to encourage routine HEP performance and improving overall quality of life with routine diet, exercise, and PT HEP performance. Reassessment and probable discharge next week. Patient encouraged to implement assisted program toaddress deficits. Continue per PT POC Plan: Recommend outpatient PT 1-2 times/week for up to 8 weeks per above PT POC pending patient progress and medical necessity standards (04/15/25-DBO) I hereby deem this POC medically necessary. Please sign below and fax back to the number below. Physician Signature: Date: documented in this encounterSaint Luke's [id number] History of Present illness Narrative* GREGORIO KnottM - 05/01/2025 10:00 AM EDT Images from [...] stop backby the pain management office to strip picker the rest of the sheet for application. I advised that it is recommended that we plan on three applications spaced 3 months apart in order to see the most symptoms improvement which is what is required by insurance. Patient will be scheduled for early-mid May when he can have an additional application of the Qutenza. documented in this encounterSaint Luke's [id number] History of Present illness Narrative* David Wong MD - 04/30/2025 2:20 PM EDT Subjective Patient ID: Dong Whitmore is a 74 y.o. male who presents for Ear Problem (Follow up MRI [facility] 04/08/25) MRI reviewed and there is no [...] Problems Diagnosis Date Noted Coronary arteriosclerosis in [place] artery 05/22/2019 Complex regional pain syndrome type II of right lower limb 04/03/2024 Hyperlipidemia 01/08/2013 Essential hypertension 01/08/2013 Gastroesophageal reflux disease 01/08/2013 Peripheral neuropathy 11/25/2022 Type 2 diabetes mellitus (HCC) 11/25/2022 Anxiety 12/18/2024 Benign hypertensive 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 2024 Chest pain 01/08/2013 Chronic ulcer of left foot with fat layer exposed ([facility]) 03/28/2025 Class 3 severe obesity with serious comorbidity and body mass index (BMI) of 40.0 to 44.9 in adult ([facility]) 02/05/2024 Concentric left ventricular hypertrophy 2024 Current use of insulin ([facility]) 06/26/2024 Diabetic mononeuropathy ([facility]) 03/28/2025 Dietary counseling and surveillance 06/26/2024 MILLER [...] Diagnosis Date COVID-19 vaccine series completed Diabetes ([facility]) Hypercholesterolemia Hypertension Neuropathy in diabetes ([facility]) PVD (peripheral vascular disease) Stress fracture Past [...] diet for hydrops sx documented in this encounterSaint Luke's [id number] History of Present illness Narrative* Morgan Arnold, [...] to this PT consult. Prior PT at [facility] with inconsistent results leading to this referral [...] Function ADLs: Independent Recreation: Sedentary Employment: Retired [employer] INTERVENTIONS Manual: Grade I/II cervical/thoracic PA mobilization [...] postural training. General UE/scapular/core/LE strengthening to assist intermediate teacher management (10 Min) Therapeutic Activity: Functional Activity [...] below. Physician Signature: Date: documented in this encounterSaint Luke's [id number] History of Present illness Narrative* Morgan Arnold, [...] to this PT consult. Prior PT at [facility] with inconsistent results leading to this referral [...] Function ADLs: Independent Recreation: Sedentary Employment: Retired [employer] INTERVENTIONS Manual: Grade I/II cervical/thoracic PA mobilization [...] postural training. General UE/scapular/core/LE strengthening to assist intermediate teacher management (10 Min) Therapeutic Activity: Functional Activity [...] below. Physician Signature: Date: documented in this encounterSaint Luke's [id number] History of Present illness Narrative* David Wong MD - 03/31/2025 9:20 AM EDT Subjective Patient ID: Dong Whitmore is a 74 y.o. male who presents for Meniere's Disease (Audio 03/28/25) Pt reports he has had a 12-18 mo h/o poor balance. Audio shows asymmetric RT SNHL. Goes to PT at [facility] to work on strength. No vertigo. Pt has ross tinnitus. Has ross LE diabetic neuropathy Review of Systems All other systems reviewed and are negative. Family History Problem Relation Name Age of Onset Hypertension Mother Heart disease Mother Stroke Mother Diabetes Father Benjamin Whitmore Stroke Father Benjamin Whitmore Hypertension Father Benjamin Whitmore Active Ambulatory Problems Diagnosis Date Noted Coronary arteriosclerosis in [place] artery 05/22/2019 Complex regional pain syndrome type II of right lower limb 04/03/2024 Hyperlipidemia 01/08/2013 Essential hypertension 01/08/2013 Gastroesophageal reflux disease 01/08/2013 Peripheral neuropathy 11/25/2022 Type 2 diabetes mellitus (HCC) 11/25/2022 Anxiety 12/18/2024 Benign hypertensive 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 2024 Chest pain 01/08/2013 Chronic ulcer of left foot with fat layer exposed ([facility]) 03/28/2025 Class 3 severe obesity with serious comorbidity and body mass index (BMI) of 40.0 to 44.9 in adult ([facility]) 02/05/2024 Concentric left ventricular hypertrophy 2024 Current use of insulin ([facility]) 06/26/2024 Diabetic mononeuropathy ([facility]) 03/28/2025 Dietary counseling and surveillance 06/26/2024 MILLER [...] Diagnosis Date COVID-19 vaccine series completed Diabetes ([facility]) Hypercholesterolemia Hypertension Neuropathy in diabetes ([facility]) PVD (peripheral vascular disease) Stress fracture Past Surgical History: Procedure Laterality Date AMPUTATION CARDIAC SURGERY 2012 stents CARPAL TUNNEL RELEASE Right FOOT SURGERY PROSTATE SURGERY TOE AMPUTATION TOE SURGERY Right Allergies Allergen Reactions Cefuroxime Unknown Celecoxib Unknown [...] (BMI) of 45.0 to 49.9 in adult ([facility]) It appears likely pt has a multisensory deficit exacerbated by his weakness and obesity. Continue PT for strength and add vest rehab. Dizziness and asymmetric SNHL could be due to an AN. MRI IAC without isabela. Needs valium for claustraphobia Proceed with ross hearing aids documented in this encounterSaint Luke's [id number] History of Present illness Narrative* YULISA Sanchez - 03/28/2025 9:00 AM EDT History: Pt [...] Ear: Type A tympanogram documented in this encounterSaint Luke's [id number] NotePatient is here today for a 3 [...] Musculoskeletal: Positive for back pain and joint pain.[facility]06-12-2025 NoteCardiovascular Medicine [facility] SUBJECTIVE No chief complaint on file. [...] running 130-150s/70-80s. He follows with endocrinology at [facility]. GI would like to start something for [...] with lymphedema. He follows with endocrinology in [place]. He has MILLER - this is unchanged. [...] at a weightloss program at [facility]. 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 01/23/2023 He is down about 10lbs since [...] Obesity Sleep apnea Type 2 diabetes mellitus ([facility]/HCC) Complex regional pain syndrome type II of right lower limb Coronary arteriosclerosis in [place] artery Current use of insulin ([facility]) Dietary counseling and surveillance Benign hypertensive 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 Concentric left ventricular hypertrophy Anxiety Right elbow pain Pre-op evaluation MILLER (dyspnea on exertion) Past Medical History: Diagnosis Date CAD (coronary artery disease) DM type 2 (diabetes mellitus, type 2) ([facility]) HLD (hyperlipidemia) HTN (hypertension) Neuropathy ULISES (obstructive [...] tablet, DISSOLVE 1 T (more content not included)...[facility]06-05-2025 Evaluation note* Diagnosis Onset Date Resolution Status Admit Date Right leg pain acute March 13, 2025 1:13pm Right lumbar radiculopathy acute March 13, 2025 1:13pm [facility] Work Phone: 1(392) 270-382106-05-2025 Evaluation note* Diagnosis Onset Date Resolution Status Admit Date Right leg pain acute March 13, 2025 1:13pm Right lumbar radiculopathy acute March 13, 2025 1:13pm Toe pain, right acute March 11:16am [facility] Work Phone: 1(208) 583-324406-05-2025 Evaluation note* Diagnosis Onset Date Resolution Status Admit Date Right leg pain acute March 13, 2025 1:13pm Right lumbar radiculopathy acute March 13, 2025 1:13pm Toe pain, right acute March 11:16am BMI 40.0-44.9, adult acute March 26, 2025 12:57pm Chronic pain of toe of right foot ac argenis March 26, 2025 12:57pm Dietary counseling and surveillance acute March 26, 2025 12:57pm Hyperlipidemia acute March 26, 2025 12:57pm Hypertension acute March 26, 2 025 12:57pm Peripheral neuropathy acute Mar 12:57pm Type 2 diabetes mellitus acute March 26, 2025 12:57pm [facility] Work Phone: 1([phone]) 592-142906-05-2025 NoteNurse Consultation Note Reason for Visit Patient [...] mg= 1 tab(s), Oral, Daily Potassium Chloride (Xoj-Vlqe-Igk M20) 20 mEq oral tablet, extended release, [...] virus vaccine, inactivated 08/01/2022 Recorded SARS-CoV-2 (COVID-19) [id number] 08/01/2022 Recorded 2023-04-14: [id number] SARS-CoV-2 (COVID-19) mRNA-1273 [...] inactivated 08/19/2013 Recorded zoster vaccine live 09/19/[address] [facility] History of Present illness Narrative* Bassam Boom Aguilar, DPM - 03/06/2025 9:10 AM EDT Patient: Dong Nur Inge : 1950 PCP: Haider Hickman MD SUBJECTIVE [...] Partner Violence: Unknown (11/30/2023) Received from [facility] Fear of Current [...] underlying condition with diabetic polyneuropathy, unspecified whether intermediate teacher insulin use ([facility]) 2. Pain due to onychomycosis of toenails of both feet 3. Venous insufficiency 4. Amputation of toe of right foot ([facility]) PLAN Debride nails in length and thickness [...] surgery Bassam Aguilar DPM documented in this encounterSaint Luke's [id number] NotePatient Education Orthopedics Acute Pain, Adult Acute [...] these instructions at home: Medicines ??? Take kees-bsc-tgduafo and prescription medicines only as told by [...] is severe. ? Do not take other mhsi-ewv-zyewpjq pain medicines in addition to prescription pain [...] keep your urine pale yellow. ??? Take bfwi-swn-lrcloev or prescription medicines. ??? Eat foods that [...] provider. Document Revised: 04/19/2023 Document Reviewed: 04/19/2023 [employer] Patient Education ? [address] [employer] 12-18-2024 [facility] [...] DM type 2 (diabetes mellitus, type 2) ([facility]), HLD (hyperlipidemia), HTN (hypertension), Neuropathy, and ULISES [...] DAY SUBCUTANEOUSLY DIRECTED, Disp: , Rfl: omega 6-bgt-ksa-fish oil (Fish OiL) 1,200 (144-216) mg capsule, [...] 70 Ht 1.727 m (more content not included)...[facility] 10-17-2024 History of Present illness Narrative* Bassam Aguilar, DPM - 10/17/2024 10:20 AM EST Patient: [...] (CMS/HCC) Hypertension (CMS/HCC) PVD (peripheral vascular disease) (CMS/[facility]) Medications: Current Outpatient Medications: acarbose (Precose) 50 [...] Partner Violence: Unknown (11/30/2023) [facility] [place] [facility] Fear of [...] underlying condition with diabetic polyneuropathy, unspecified whether assisted insulin use ([facility]) 2. Pain due to onychomycosis of toenails [...] surgery Bassam Aguilar DPM documented in this encounterSaint Luke's [id number] History of Present illness Narrative* Matthew May DO - 08/29/2024 9:30 AM EST Images from [...] believes a few years ago in the [place] office. Review of Systems Constitutional: Negative for [...] Diagnosis Date COVID-19 vaccine series completed Diabetes ([facility]/HCC) Hypercholesterolemia ([facility]/HCC) Hypertension ([facility]) PVD (peripheral vascular disease) ([facility]) Past Surgical History: Procedure Laterality Date CARDIAC [...] , wrist extensors , wrist flexor , tree care foreman strength 5/5. LUE Strength deltoid , biceps , triceps , wrist extensors , wrist flexor , tree care foreman strength 5/5. RLE Strength illopsoas, quadriceps, tibialis [...] reflex 0. Del Real's sign negative. Coordination: Jxenqm-fw-kdyn testing and rapid alternating movements are normal [...] is already established with pain management in [place] and suggest that they can see them [...] to ketamine infusions with pain management in [place]. Isuggested, if epidural is not successful, that they consider follow up thereof. The patient can follow up with us on an as-needed basis. Thank you for consultation. Pt has been fully educated on their diagnosis, lab results, treatment options, follow up plan, return instructions, and discussion of mental health issues documented in this encounterSaint Luke's HospitalEwhnstcrmt05-48-8416 NoteHNO ID: [id number] Author: CHIQUI ROBLES MD Service: ? Author Type: Physician Type: Progress Notes Filed: 08/26/2024 16:34 Note Text: [facility] STAFF PHYSICIAN NOTE OF PERSONAL [...] - psychotherapy was utilized during the visit. Nsmw-vm-qtpb time: 57648 (16-37 mins) actual time spend in psychotherapy 18 minutes Type of therapeutic intervention:Supportive Target symptoms: Pain coping skills and Acceptance and adapting Progress/Session notes:processing Interactive Complexity: None STAFF PHYSICIAN:: Chiqui Robles MD DATE of SERVICE: 08/14/2024[facility]11-06-2024 History of Present illness Narrative* Chiqui Robles MD - 08/14/2024 10:29 AM EST [facility] STAFF PHYSICIAN NOTE OF PERSONAL [...] - psychotherapy was utilized during the visit. Nbrk-wk-gqng time: 63463 (16-37 mins) actual time spend in psychotherapy 18 minutes Type of therapeutic intervention:Supportive Target symptoms: Pain coping skills and Acceptance and adapting Progress/Session notes:processing Interactive Complexity: None STAFF PHYSICIAN:: Chiqui Robles MD DATE of SERVICE: 08/14/2024 * Claudia Chilel MD - 08/14/2024 9:55 AM EST THE [facility] for Comprehensive Pain Recovery [facility] [place] August 14, 2024 This is a face [...] 14, 2024 10:37 AM documented in this encounterThe [facility]11-[facility] NoteHNO ID: [id number] Author: CLAUDIA CHILEL MD Service: ? Author Type: Resident Type: Progress Notes Filed: 08/14/2024 10:51 Note Text: THE [facility] for [facility] Recovery [facility] [place] August 14, 2024 This is a face [...] Chilel MD, AMANDA August 14, 2024 10:37 [facility]10-31-2024 History of Present illness Narrative* Bassam Aguilar, GREGORIOM - 08/08/2024 9:40 AM EDT Patient: Dong [...] Partner Violence: Unknown (11/30/2023) [facility] from [facility] [place] [facility] Fear of [...] underlying condition with diabetic polyneuropathy, unspecified whether intermediate teacher insulin use ([facility]) 2. Pain due to onychomycosis of toenails of both feet 3. Amputation of toe of right foot ([facility]) PLAN Debride nails in length and thickness [...] surgery Bassam Aguilar DPM documented in this encounterSaint Luke's HospitalTtbhjmbzln08-52-5457 NoteB[facility] Note Reason for [...] DM type 2 (diabetes mellitus, type 2) ([facility]), HLD (hyperlipidemia), HTN (hypertension), Neuropathy, and ULISES [...] DAY SUBCUTANEOUSLY DIRECTED, Disp: , Rfl: omega 3-tuu-sok-fish oil (Fish OiL) 1,200 (144-216) mg capsule, [...] right bundle branch block Echo 07/08/2024 at [facility] Echo 12/30/2022 Echo 11/15/2016 Nuclear stress test 12/29/2022 at [facility] EKG portion Assessment and Plan: Coronary artery disease, status post prior PTCA of the left circumflex artery and RCA in 2012 Last stress test 12/30/2022 which was negative for ischemia with normal ejection fraction He is on aspirin, metoprolol, and simvastatin. Clinically stable Severe LVH on recent echo probably due to uncontrolled hypertensi (more content not included)...[facility]10-23-2024 History of Present illness Narrative* Shyam Cam DPM FACFAS - 07/31/2024 10:10 AM EDT [...] < 3 seconds Digits 1-5 bilateral NEURO: Early Yandy 5.07 monofilament was intact B/L. Vibratory [...] underlying condition with diabetic polyneuropathy, unspecified whether assisted insulin use ([facility]) 3. Amputation of right great toe ([facility]) PLAN Patient had no improvement with diagnostic injection. I feel the this point the pain is not relatedto his toe but appears to be from his low back sciatic issue spoke with his primary care physician they plan to work him up for low back concerns AUGUSTIN Horn documented in this encounterSaint Luke's HospitalNqhjvuvumr53-96-1042 History of Present illness Narrative* AUGUSTIN Horn [...] < 3 seconds Digits 1-5 bilateral NEURO: Early Yandy 5.07 monofilament was intact B/L. Vibratory [...] his leg. AUGUSTIN Horn documented in this encounterSaint Luke's [id number] History of Present illness Narrative* Arlen Sanchez, DO - 07/23/2024 9:45 AM EDT Images from the original note were not included. HISTORY OF PRESENT ILLNESS: Dong Whitmore is an 73 y.o. @ male. Chief complaint LT shoulder pain LT Shoulder: here for MRI results [facility] 07/15/24 8 1/2 weeks ago pt fell, went to [facility] ER on 05/24/24 and had xrays done. [...] he does these. [place]: LT shoulder xrays [facility] 05/24/24, acetiminophen with codeine, ice, bengay, 9/4/24 subacromial depomedrol injection, MRI [facility] 07/15/24, doing pendulums. Pt [...] IMAGING: [facility] of the [facility] the [facility] had revealed a full-thickness tear of [...] Dr. Sanchez/darion Sanchez D.O. documented in this encounterSaint Luke's HospitalOavovzwqql94-00-5004 NoteCardiovascular Medicine [place] [facility] SUBJECTIVE No chief complaint on file. [...] Obesity Sleep apnea Type 2 diabetes mellitus ([facility]/HCC) Complex regional pain syndrome type II of right lower limb Coronary arteriosclerosis in [place] artery Current use of insulin ([facility]) Dietary counseling and surveillance Past Medical History: Diagnosis Date CAD (coronary artery disease) DM type 2 (diabetes mellitus, type 2) ([facility]) HLD (hyperlipidemia) HTN (hypertension) Neuropathy ULISES (obstructive [...] DAY SUBCUTANEOUSLY DIRECTED, Disp: , Rfl: omega 0-krx-tth-fish oil (Fish OiL) 1,200 (144-216) mg capsule, [...] normal. Behavior: Behavior nor (more content not included)...[facility]10-10-2024 Telephone encounter Note* Telephone Encounter - Christiano Solis RN - 07/18/2024 10:17 AM EDT Patient told to schedule an appt to discuss in detail [facility]10-10-2024 Miscellaneous Notes* Telephone Encounter - Christiano Solis RN - 07/18/2024 10:17 AM EDT Patient told to schedule an appt to discuss in detail documented in this encounterThe [facility] Hospital10-09-2024 NotePatient Education Nephrology Dietary Guidelines to [...] ? 8 oz (237 mL) of milk, zpyjdep-gbjcohrfugfe-jhicr milk, and calcium- fortifiedfruit juice. Calcium-fortified means [...] Spinach (cooked), rhubarb, beets, sweet potatoes, and Palauan chard. ? Peanuts. ? Potato chips, romansh fries, and baked potatoes with skin on. ? Nuts and nut products. ? Chocolate. ? If you regularly take a diuretic medicine, make sure to eat at least 1 or 2 servings of fruits orvegetables that are high in potassium each day. These include: ? Avocado. ? Banana. ? Iola, prune, carrot, or tomato juice. ? Baked [...] fish oil, or vitamin B6. ? Take ycjw-rkk-xbpbrms and prescription medicines only as told by your health care provider. Theseinclude suppleme (more content not included)...[facility]09-26-2024 Telephone encounter Note* Telephone Encounter - Carrie Perez - 07/04/2024 3:30 PM EDT Patient's called regarding MRI. Patient is now getting it done at [facility]. Patient's is requesting volume [facility] [place]. Please advise [phone]. Saint Luke's HospitalOmaakwtyib92-08-0381 Miscellaneous Notes* Telephone Encounter - Carrie Perez - 07/04/2024 3:30 PM EDT Patient's called regarding MRI. Patient is now getting it done at [facility]. Patient's is requesting [facility] [place]. Please advise [phone]. documented in this encounterSaint Luke's HospitalSqfrzlbnpd42-46-7274 History of Present illness Narrative* Shyam Cam DPM FACFAS - 07/03/2024 10:20 AM EDT [...] < 3 seconds Digits 1-5 bilateral NEURO: Early Yandy 5.07 monofilament was intact B/L. Vibratory [...] 2 weeks AUGUSTIN Horn documented in this encounterSaint Luke's HospitalLaddlcvycy00-91-6231 History of Present illness Narrative* Chelle Brandon, MAXIMINO - 07/01/2024 10:00 AM EDT Subjective Patient ID: Dong Whitmore is a 73 y.o. male. LT Shoulder Pt is RT handed. 3 weeks s/p subacromial depo medrol injection (06/12/24) with 0% improvement. States he is worse he ran into the corner of his TV about 1 week ago. 5 weeks and 5 days ago pt fell, went to [facility] ER on 05/24/24 and had xrays done. [...] tolerated, f/u s/p MRI documented in this encounterSaint Luke's [id number] NoteCardiovascular Medicine [place] [facility] SUBJECTIVE Chief Complaint Patient presents with [...] with lymphedema. He follows with endocrinology in [place]. He has MILLER - this is unchanged. [...] at a weight[facility] at [facility]. 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 01/23/2023 He is down about 10lbs since [...] Obesity Sleep apnea Type 2 diabetes mellitus ([facility]) Complex regional pain syndrome type II of right lower limb Coronary arteriosclerosis in [place] artery Current use of insulin ([facility]) Dietary counseling and surveillance Past Medical History: Diagnosis Date CAD (coronary artery disease) DM type 2 (diabetes mellitus, type 2) ([facility]) HLD (hyperlipidemia) HTN (hypertension) Neuropathy ULISES (obstructive [...] tablet, venlafaxine 37.5 mg (more content not included)...[facility]09-18-2024 NotePatient here for 1 year follow up CAD, hypertension, and hyperlipidemia. Had lipid panel this past December. Had foot surgery last week. Denies chest pain, SOB, palpitations, and lightheadedness/syncope. 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 Review of Systems Cardiovascular: Positive for leg swelling (RLE). Musculoskeletal: Positive for joint pain. All other systems reviewed and are negative.[facility] 06-25-2024 History of Present illness Narrative* Levar Cam DPM FACFAS - 06/25/2024 2:20 PM EDT [...] Diagnosis Date COVID-19 vaccine series completed Diabetes ([facility]) Hypercholesterolemia ([facility]) Hypertension ([facility]) PVD (peripheral vascular disease) ([facility]) Medications: Current Outpatient Medications: acarbose (Precose) 50 [...] < 3 seconds Digits 1-5 bilateral NEURO: Early Yandy 5.07 monofilament was intact B/L. Vibratory [...] underlying condition with diabetic polyneuropathy, unspecified whether intermediate teacher insulin use (CMS/HCC) 3. Venous insufficiency 4. Non-pressure chronic ulcer of other part of right lower leg with fat layer exposed ([facility]) PLAN Today we applied a dry sterile [...] Dr. Howe. AUGUSTIN Sam documented in this encounterSaint Luke's HospitalWxksyonrac50-70-7758 Miscellaneous Notes* Telephone Encounter - AUGUSTIN Horn - 06/19/2024 11:00 PM EDT Sx rx documented in this [facility]09-11-2024 Telephone encounter Note* Telephone Encounter - AUGUSTIN Horn - 06/19/2024 11:00 PM EDT [facility] [id number] History of Present illness Narrative* AUGUSTIN Horn [...] Diagnosis Date COVID-19 vaccine series completed Diabetes ([facility]) Hypercholesterolemia ([facility]) Hypertension ([facility]) PVD (peripheral vascular disease) ([facility]) Medications: Current Outpatient Medications: acarbose (Precose) 50 [...] Partner Violence: Unknown (11/30/2023) [facility] [place] Fear of [...] above-stated procedure. AUGUSTIN Horn documented in this encounterSaint Luke's HospitalMcnrztcbyi69-70-8826 History of Present illness Narrative* Bassam Aguilar DPM - 06/18/2024 10:00 AM EDT Patient: Dong Matayehuda : 1950 PCP: Haider Hickman MD SUBJECTIVE [...] Partner Violence: Unknown (11/30/2023) Received from [facility] [place] Fear of [...] underlying condition with diabetic polyneuropathy, unspecified whether assisted insulin use ([facility]) 3. Amputation of right great toe ([facility]) PLAN Have discussed and patient the past [...] Patient may continue with conservative treatments including nszc-nwz-gunctsw anti- inflammatories and other treatments suggested today. Patient may want to be s cheduled for surgical intervention in the near future. DIPJ amputation of the right 3rd digit underlocal anesthetic and patient to have done in the near future by either myself or . Bassam Aguilar DPM documented in this encounterSaint Luke's HospitalVgrjbcfcyw88-67-4885 History of Present illness Narrative* Chelle Brandon NP - 06/12/2024 9:15 AM EDTAssociated Order(s): L Inj/Asp: L subacromial bursa Post-Procedure Diagnose(s): Impingement of left shoulder Subjective Patient ID: Dong Whitmore is a 73 y.o. male. LT Shoulder Pt is RT handed. States he is better but his shoulder still hurts a lot 2 weeks 5 days ago pt fell, went to [facility] ER on 05/24/24 and had xrays done. [...] doing pendulum exercises [place]: LT shoulder xrays [facility] 05/24/24, acetiminophen with codeine, ice, bengay Objective [...] f/u in 2 weeks. documented in this encounterSaint Luke's HospitalCswimmswbr27-85-1214 NoteHNO ID: [id number] Author: BRITNEY HYDE, PhD Service: ? Author Type: Psychologist Type: Progress Notes Filed: 06/07/2024 14:24 Note Text: [facility] for Comprehensive Pain Recovery Behavioral Medicine Group Session I have communicated my name and active licensure. The patient's identity and physical location were verified at the time of this visit. Either the patient or their legal medical center representative has been informed of the risks [...] a copy of the consent form on Guanghetangmcintosh. The patient consented to a virtual visit and their location was confirmed. Patient location: [facility] confirmed Patient Name: Dong Whitmore CC#: [id number] Date of service: June 07, 2024 Subjective: [...] additional pain management education Britney Hyde, PhD [phone] History of Present illness Narrative* Britney Hyde, PhD - 06/07/2024 12:22 PM EDT [facility] for Comprehensive Pain Recovery Behavioral Medicine Group Session I have communicated my name and active licensure. The patient's identity and physical location wereverified at the time of this visit. Either the patient or their legal medical center representative has been informed of the risks [...] a copy of the consent form on Crowdfynd. The patient consented to a virtual visit and their location was confirmed. Patient location: [facility] confirmed Patient Name: Dong Whitmore CC#: [id number] Date of service: June 07, 2024 Subjective: [...] additional pain management education Britney Hyde, PhD [phone] documented in this encounterThe [facility] Hospital08-26-2024 Telephone encounter Note * Telephone Encounter - Naomy Mathis - 06/03/2024 10:32 AM EDT Patient called wanted to know if he is able to make an appointment. Says his shoulder is hurting worse and the site of the RT LT shoulder is turning yellow. Appointment? [facility]'s HospitalWybtblazac00-77-3682 Miscellaneous Notes* Telephone Encounter - Naomy Mathis - 06/03/2024 10:32 AM EDT Patient called wanted to know if he is able to make an appointment. Says his shoulder is hurting worse and the site of the RT LT shoulder is turning yellow. Appointment? documented in this encounterSaint Luke's HospitalMvckzokgem22-43-1757 NoteHNO ID: [id number] Author: MORGAN TRINIDAD, Therapist Service: ? Author Type: Therapist Type: Progress Notes Filed: 05/07/2024 08:20 Note Text: THE [facility] for Comprehensive Pain Recovery Psychological Evaluation May 06, 2024 Dong Whitmore CCF#: [id number] I have communicated my name and active licensure. The patient's identity and physical location were verified at the time of this visit. Either the patient or their legal medical center representative has been informed of the risks and benefits of -- and alternatives to -- treatment through virtual visit and consents to proceed with the session remotely. The patient e-signed the Informed Consent for Psychological Evaluation AND Care Form, and the [facility] health care insurance benefits, fees for service, emergency procedures, and the limits of confidentiality that may pertain with any given case were discussed with the patient. The patient was given a copy of the consent form on Crowdfynd. The patient consented to a virtual visit and their location was confirmed. Patient location: [place], [place] CPT Code: 6111891 Virtual Psych Diagnotic Eval Appointment Start: 9 AM This 73 year old retired for 15 years (he was having some medical problems, but they offered an early penitentiary package that was attractive at the time) male lives with his in [place], [place]. 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 He was referred by Chiqui Robles MD for psychological evaluation in the context of chronic pain. This consultation was shared with the referral source via the [facility] electronic medical record. He believes the [...] as needed. pioglitazone (ACT (more content not included)...[facility] 04-24-2024 NoteHNO ID: [id number] Author: CHIQUI ROBLES MD Service: ? Author Type: Physician Type: Progress Notes Filed: 04/24/2024 11:26 Note Text: [facility] STAFF PHYSICIAN NOTE OF PERSONAL [...] - psychotherapy was utilized during the visit. Xdds-sz-yxrh time: 40104 (16-37 mins) actual time spend in psychotherapy [...] which included preparing to see the patient, bcmr-nd-ibsw patient care, completing clinical documentation, performing a medically appropriate examination, and counseling and educating the patient/family/caregiver. As noted, the patient's clinical situation is complex and serious with significant comorbidity of pain and functional limitations. This requires higher levels of time, intensity, and expense with longitudinal care and support. STAFF PHYSICIAN:: Chiqui Robles MD DATE of SERVICE: 04/24/2024[facility]07-17-2024 History of Present illness Narrative* Chiqui Robles MD - 04/24/2024 9:27 AM EDT [facility] STAFF PHYSICIAN NOTE OF PERSONAL [...] - psychotherapy was utilized during the visit. Ruah-vh-jwje time: [id number] (16-37 mins) actual time spend in psychotherapy [...] which included preparing to see the patient, mnnn-rb-hpje patient care, completing clinical documentation, performing a [...] MD - 04/24/2024 9:02 AM EDT THE [facility] for Comprehensive Pain Recovery Neurological [place] April 24, 2024 This is a face [...] consult Parish Tucker MD documented in this encounterThe [facility] Hospital07-17-2024 NoteHNO ID: [id number] Author: PARISH RIOS MD Service: ? Author Type: Resident Type: Progress Notes Filed: 04/24/2024 11:26 Note Text: [facility] for Comprehensive Pain Recovery Neurological [place] April 24, 2024 This is a face [...] therapy [facility] psychology consult Parish Tucker, [facility]06-13-2024 Telephone encounter Note* Telephone Encounter - Emilee So RN - 03/21/2024 11:38 AM EDT Spoke with patient and notified him of provider recommendations. Verbalized understanding. Emilee So RN [facility]06-13-2024 Miscellaneous Notes* Telephone Encounter - Emilee [...] EDT Spoke with patient at request of associate professor of physics as patient has questions about referral to infectious disease. Patient states that he spoke with his PCP, Dr. Hickman ([phone]) who spoke with in Infectious disease at [facility]. [...] planned. Emilee So RN documented in this encounterThe Jewish Hospital06-13-2024 Telephone encounter Note * Telephone Encounter - Eufemia Ortiz PA-C - 03/21/2024 9:24 AM EDT Ok per Dr Araujo to proceed with trial - still recommending to keep appt with ID [facility] Work Phone: 1(152) 790-663106-11-2024 Telephone encounter Note* Telephone Encounter - Emilee So RN - 03/19/2024 1:28 PM EDT Spoke with patient at request of associate professor of physics as patient has questions about referral to infectious disease. Patient states that he spoke with his PCP, Dr. Hickman ([phone]) who spoke with in Infectious disease at [facility]. [...] forward as planned. Emilee So RN [facility]06-07-2024 NoteMicrobiology PROCEDURE: Blood Culture Charcoal [R1] SOURCE: Blood BODY SITE: COLLECTED DATE/TIME: 03/08/2024 08:30 EDT RECEIVED DATE/TIME: 03/08/2024 09:02 EDT START DATE/TIME: 03/08/2024 09:02 EDT FREE TEXT SOURCE: michel Hickman MD, Haider Hickman MD, Haider Bee FINAL REPORTS Final Report [] Verified Date/Time: 03/15/2024 12:00 EDT No growth at 7 days. Performing Locations R1: This test was performed at: [facility], [address] [place] [address], [phone]- , , [facility] CenterComment on above:Performed By: #### [id number] #### [facility] [address] [place] [address] [id number] Instructions* Patient Instructions* Senthil Giraldo MD - 02/29/2024 1:38 PM EDT - Right DRG trial - Obtain psychological evaluation report (patient reports he just had this done ~two months ago) and send to [facility] - ID consult - Rule out infectious risk with due to the dermatitis. - Follow up: Return to clinic for the above procedure documented in this encounterThe Jewish Hospital05-23-2024 NoteHNO ID: [id number] Author: HERBERTH ARAUJO MD, PhD Service: ? Author Type: Physician Type: Progress Notes Filed: 03/18/2024 19:05 Note Text: [facility] New Patient Consultation Referring Physician: SELF Chief Complaint: Right third toe pain SUBJECTIVE: Dong Whitmore is a 73 year old male with a pertinent past medical history of diabetes who [facility]'s [facility] for the evaluation of right third toe pain. 15-year history of right third toe pain. He notes that over this time the pain has become increasingly severe has caused him significant discomfort and suffering. He has been to many specialists in the [facility]-over the course of the past [...] Mild depression 10-14 Mo (more content not included)...[facility]05-23-2024 History of Present illness Narrative* Herberth Araujo MD, PhD - 02/29/2024 1:05 PM EDT Images from the original note were not included. [facility] Pain Management Department New Patient Consultation Referring Physician: SELF Chief Complaint: Right third toe pain SUBJECTIVE: Dong Whitmore is a 73 year old male with a pertinent past medical history of diabetes who presentsto [facility] for the evaluation of right third toe pain. 15-year history of right third toe pain. He notes that over this time the pain has become increasingly severe has caused him significant discomfort and suffering. He has been to many specialists in the [facility]-over the course of the past [...] medical history of diabetes who presentsto [facility] for the evaluation of right third toe pain. He describes a 15-year history of right third toe pain. He notes that over this time the pain has become increasingly severe has caused him significant discomfort and suffering. He has been to many specialists in the [facility] area-over the course of the past [...] ~two months ago) and send to [facility] - ID consult [...] Herberth Araujo MD, PhD [facility] Telephone encounter Note * Telephone Encounter - Lela Hyatt RN - 02/06/2024 10:51 AM EDT Called and spoke to patient. Gave him this message from Dr. Singletary: I'd suggest seeking an appointment with the following doctors who perform DRG implantation: Dr. Carlisle, Dr. Araujo, Dr. Dan, Dr. Cortés Patient voiced understanding. [facility]04-30-2024 Miscellaneous Notes* Telephone Encounter - Lela [...] him the number to schedule at [facility] to discuss DRG? I'd suggest seeking an appointment with the following doctors who perform DRG implantation: Dr. Carlisle, Dr. Araujo, Dr. Dan, Dr. Moo Heard and Dr. Kamara may do DRG - I'm not sure. Thanks Lela! ----- Message ----- From: Livia Lester PA-C Sent: 02/05/2024 2:07 PM EDT To: Francoise Singletary MD No one on this side of [facility] that I know of does DRG so, we also send to [facility] I would just have Loricall the [...] I know who do DRG are at [facility]. How do we refer him there? From what I remember, Van Melendez, Ni, and Moo do DRG - do you know of anyone else? [facility] Telephone encounter Note * Telephone Encounter - Lela Hyatt RN - 02/06/2024 10:46 AM EDT ----- Message from Francoise Singletary MD sent at 02/05/2024 3:12 PM EDT ----- Do you mind calling him and giving him the number to schedule at [facility] to discuss DRG? I'd suggest seeking an appointment with the following doctors who perform DRG implantation: Dr. Carlisle, Dr. Araujo, Dr. Dan, Dr. Moo Heard and Dr. Kamara may do DRG - I'm not sure. Thanks Lela! ----- Message ----- From: Livia Lester PA-C Sent: 02/05/2024 2:07 PM EDT To: Francoise Singletary MD No one on this side of [facility] that I know of does DRG so, we also send to [facility] I would just have Loricall the [...] do you know of anyone else? [facility]04-29-2024 Instructions* Patient Instructions* Francoise Singletary MD - 02/05/2024 1:01 PM EDT Thank you for taking the time to come and see me today! Please schedule an appointment for: [facility] Consult Please follow up with [facility] Please send all of your Podiatry, Neurology, and Pain Management records to us I will refer you to a provider who performs DRG to discuss this Please come back to see me as needed documented [facility] History of Present illness Narrative* Francoise Singletary MD - 02/05/2024 11:30 AM EDT Images from the original note were not included. [facility] Management Department Consultation Date: February [...] The patient has seen other pain providers. [facility] Neurology OV 02/01/22 Assessment and Plan [...] Hehas been to many specialists in the [facility] area-over the course of the past [...] outside records. Unfortunately during our appointment today, [facility] was down I was unable to [...] I noted before, he appears today while [facility] was down, and I not have [...] will refer him to a doctor at [facility] for consideration of DRG and to discuss the risks, benefits,alternatives. Diagnostics/Referrals: -Chronic Pain Recovery Program referral Referral to [facility] podiatry, neurology for second opinions 2. [...] Marital Status: Unknown Medical Decision Making The [facility] EMR was reviewed during the visit including: [...] from the shared EMR documented in this encounterThe [facility] Hospital04-29-2024 NoteHNO ID: [id number] Author: FRANCOISE SINGLETARY MD Service: ? Author Type: Physician Type: Progress Notes Filed: 02/05/2024 15:14 Note Text: [facility] Consultation Date: February [...] The patient has seen other pain providers. [facility] Neurology OV 02/01/22 Assessment and Plan [...] has been to many specialists in the [place] area-over (more content not included)...[facility]12-04-2023 Evaluation note* Encounter Date Diagnosis Assessment Notes [...] 6.9% 2. Blood glucose levels according to [employer] 3 cgm download 08/29/23-09/11/23: Avg glucose 154. [...] Current use of insulin (ICD-10 - Z79.4) [employer] Other 11-16-2023 Evaluation note* Encounter Date Diagnosis Assessment Notes Treatment Notes Treatment Clinical Notes Aug, Cellulitis of right lower extremity (ICD-10 - L03.115) I did thoroughly review all the studies from [place]. I do not have any images to [...] include weight loss exercise and compression therapy. [employer] Other 09-01-2023 Evaluation note* Encounter Date Diagnosis Assessment Notes Treatment Notes Treatment Clinical Notes Jun, Type 2 diabetes mellitus with diabetic chronic kidney disease (ICD-10 - E11.22) Dong and his came in today for [employer] baylee 3 training and refresher on his [...] He was given a no cut [employer] Manager to try and a brochure to buy them online. We discussed the Novolog pen and that he is to use it if his BG before a meal is greater than 150. He was able to dial the pen and knows how to put the pen needle on and deliver the dose. 30 minutes were spent educating the patient by Kamlesh Sparrow RN, [facility]. [employer] Other 05-30-2023 Evaluation note* Encounter Date [...] February, Metabolic syndrome X (ICD-10 - E88.81) [employer] Other 05-09-2023 Evaluation note* Encounter Date [...] last visit, continue with weight loss efforts [employer] Other 04-14-2023 Evaluation note* Encounter Date [...] the following goals: Add flavors to vegetables [employer] Other 03-30-2023 Evaluation note* Encounter Date [...] Dec, Metabolic syndrome X (ICD-10 - E88.81) [employer] Other 03-23-2023 NoteCARDIAC STRESS TEST Requesting [...] interpreted and reported nuclear myocardial perfusion imaging.[facility] [id number] Evaluation note* Encounter Date Diagnosis Assessment Notes [...] following goals: 1) Increase vegetables at dinner [facility] Other 02-14-2023 Evaluation note* Encounter Date Diagnosis [...] him and his by Kamlesh Sparrow RN, [facility]. Reviewed cgm download 11/08/22-11/20/22: Avg glucose 171. >250-1%, >180-30%, 70-180-69%, <70-0%, <540%. CV 15..2%. [employer] MEDICARE NURSE, WINDOW CLEANER-C, BC-ADM [employer] Other 02-10-2023 Evaluation note* Encounter Date Diagnosis [...] Nov, Metabolic syndrome X (ICD-10 - E88.81) [employer] Other 01-30-2023 Evaluation note* Encounter Date [...] issues. 6. Prescriptions: Acarbose sent to [facility]. Sample baylee 2 cgm given today. 7. [...] Baylee 2 sensor and an office owned, [employer] [place]. His phone was not compatible with Baylee 2 or 3, or Dexcom G6. He previously wore the Baylee 14 day system and did not need training on applying the device. I did train him on the use of the reader. He was vgiven samples of [employer]if Laundromat Worker and Skin Tac to help keep the device in place. 45 minutes were spent educating the patient by Kamlesh Sparrow RN, [facility]. [employer] Other 01-10-2023 Evaluation note* Encounter Date [...] program2) Try roasted marino peppers (recipe provided) [employer] Other [id number] NotePROCEDURE: XR FOOT RT MIN 3 VIEWS [...] Electronically authenticated by: BRITTNY MORALES Date: 2022-08-19 06:17[facility]11-02-2022 Evaluation note* Encounter Date Diagnosis Assessment Notes [...] nuts or cheese + crackers -Only likes omani cheese,-Recommended 15g or less for snacks; so [...] likes those-Increase vegetable intake-Vegetables: corn, peas, carrots [employer] Other 10-19-2022 Evaluation note* Encounter Date [...] referral to Dr. Kelley for weight management [employer] Other 08-31-2022 Evaluation note* Encounter Date [...] and his would cook it for him [employer] Other 07-14-2022 Evaluation note* Encounter Date [...] improved glycemia. Pt would likek referral to wire spring relay adjuster. Note pt has intolerance to glp1 class [...] of glucose/bp control to prevent further nephropathy [employer] Other 01-13-2022 Evaluation note* Encounter Date [...] medication issues. 6. Prescriptions: Pioglitazone sent to [facility]. Oct, Hyperlipidemia, unspecified hyperlipidemia type (ICD-10 - [...] brochure given today. Recommend call if interested. [employer] Other 10-13-2021 Evaluation note* Encounter Date Diagnosis Assessment Notes Treatment Notes Treatment Clinical Notes Jul, SANTANA (nonalcoholic steatohepatitis) (ICD-10 - K75.81) Jul, Other [employer] INDICATED ABOVE F/U HERE PRN [employer] Other Consult note* Clinical Note Date No Information [facility] Work Phone: Discharge summary* Clinical Note Date No Information [facility] Work Phone: [facility]No [facility] [place] Other Evaluation noteNo assessment information available [facility] Work Phone: Evaluation note* Diagnosis Chronic toe pain, right foot- Primary 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, not stated as uncontrolled Class 3 severe obesity with serious comorbidity and body mass index (BMI) of 40.0 to 44.9 in adult, unspecified obesity type (HCC) documented in this encounter [facility]* Diagnosis Chronic toe pain, right foot- [...] right lower limb documented in this encounter [facility]* Diagnosis Adjustment disorder with depressed mood- Primary Complex regional pain syndrome type II of right lower limb Chronic toe pain, right foot Class 3 severe obesity with serious comorbidity and body mass index (BMI) of 40.0 to 44.9 in adult, unspecified obesity type (HCC) documented in this encounter [facility]* Diagnosis Adjustment disorder with depressed mood- Primary Complex regional pain syndrome type II of right lower limb Chronic toe pain, right foot documented in this encounter [facility]* Diagnosis Adjustment disorder with depressed mood- Primary Complex regional pain syndrome type II of right lower limb Chronic toe pain, right foot documented in this encounter [facility]* Diagnosis Complex regional pain syndrome type II of right lower limb documented in this encounter [facility]* Diagnosis Acquired deformity of right toe- Primary Diabetes 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, unspecified whether intermediate teacher insulin use ([facility]) [facility]* Diagnosis Internal derangement of left shoulder- Primary Arthritis of left acromioclavicular joint Complete tear of left rotator cuff, unspecified whether traumatic Left shoulder pain, unspecified chronicity documented in this encounter [facility]* Diagnosis Acquired deformity of right toe- Primary Diabetes 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, unspecified whether intermediate teacher insulin use ([facility]) Amputation of right great toe ([facility]) documented in this encounter [facility]* Diagnosis Amputation of toe of right foot ([facility])- Primary Diabetes 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, unspecified whether intermediate teacher insulin use ([facility]) Pain due to onychomycosis of toenails of both feet documented in this encounter [facility]* Diagnosis Internal derangement of left shoulder- Primary Complete tear of left rotator cuff, unspecified whether traumatic documented in this encounter [facility]* Diagnosis Complex regional pain syndrome type II of right lower limb Chronic toe pain, right foot Class 3 severe obesity with serious comorbidity and body mass index (BMI) of 40.0 to 44.9 in adult, unspecified obesity type ([facility]) [facility] Diagnosis Right foot pain- Primary Pain in soft tissues of limb Diabetic polyneuropathy associated with type 2 diabetes mellitus ([facility]) documented in this encounter [facility]* Diagnosis Acquired deformity of right toe- Primary Left shoulder pain, unspecified chronicity- Primary Arthritis of left acromioclavicular joint Glenohumeral arthritis, left Impingement of left shoulder documented in this encounter [facility]* Diagnosis Acquired deformity of right toe- Primary Diabetes 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, unspecified whether assisted insulin use ([facility]) Venous insufficiency Unspecified venous (peripheral) insufficiency Non-pressure chronic ulcer of other part of right lower leg with fat layer exposed ([facility]) Left shoulder pain, unspecified chronicity- Primary Arthritis of left acromioclavicular joint Glenohumeral arthritis, left Impingement of left shoulder documented in this encounter [facility]* Diagnosis Left shoulder pain, unspecified chronicity- Primary Arthritis of left acromioclavicular joint Glenohumeral arthritis, left Impingement of left shoulder documented in this encounter [facility]* Diagnosis Acquired deformity of right toe- Primary Diabetes 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, unspecified whether assisted insulin use ([facility]) Amputation of right great toe ([facility]) documented in this encounter [facility]* Diagnosis Acquired deformity of right toe Left shoulder pain, unspecified chronicity- Primary Arthritis of left acromioclavicular joint Glenohumeral arthritis, left Impingement of left shoulder documented in this encounter [facility]* Diagnosis Left shoulder pain, unspecified chronicity- Primary Arthritis of left acromioclavicular joint Glenohumeral arthritis, left Impingement of left shoulder Internal derangement of left shoulder documented in this encounter [facility]* Diagnosis Acquired deformity of right toe- Primary documented in this encounter [facility]* Diagnosis Internal derangement of left shoulder- Primary documented in this encounter [facility]* Diagnosis Diabetes 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, unspecified whether intermediate teacher insulin use ([facility])- Primary Pain due to onychomycosis of toenails of both feet Venous insufficiency Unspecified venous (peripheral) insufficiency documented in this encounter [facility]* Diagnosis Diabetes 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, unspecified whether assisted insulin use ([facility])- Primary Pain due to onychomycosis of toenails of both feet Venous insufficiency Unspecified venous (peripheral) insufficiency Amputation of toe of right foot ([facility]) documented in this encounter [facility]* Diagnosis Onset Date Resolution Status Admit Date Right leg pain acute March 13, 2025 1:13pm Right lumbar radiculopathy acute March 13, 2025 1:13pm [facility] Work Phone: Evaluation note* Diagnosis Asymmetrical sensorineural hearing loss- Primary Sensorineural hearing loss, asymmetrical Tinnitus, bilateral Unspecified tinnitus Balance problem Abnormality of gait documented in this encounter [facility]Evaluation note* Diagnosis Imbalance- Primary Abnormality of gait Asymmetric SNHL (sensorineural hearing loss) Sensorineural hearing loss, asymmetrical Class 3 severe obesity due to excess calories without serious comorbidity with body mass index (BMI) of 45.0 to 49.9 in adult ([facility]) Claustrophobia Other isolated or specific phobias documented [facility]* Diagnosis Cervicalgia- Primary Imbalance Abnormality of gait Unsteadiness on feet Frequent falls documented [facility]* Diagnosis Cervicalgia- Primary Imbalance Abnormality of gait Unsteadiness on feet Frequent falls documented [facility]* Diagnosis Imbalance- Primary Abnormality of gait Asymmetric SNHL (sensorineural hearing loss) Sensorineural hearing loss, asymmetrical Cochlear hydrops of right ear documented in [facility]* Diagnosis Diabetes 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, unspecified whether assisted insulin use (HCC)- Primary Neuropathy Mononeuritis of [...] underlying condition with diabetic polyneuropathy, unspecified whether intermediate teacher insulin use (HCC)- Primary Pain due to onychomycosis of toenails of both feet Venous insufficiency Unspecified venous (peripheral) insufficiency [facility]* Diagnosis Diabetes 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, unspecified whether intermediate teacher insulin use (HCC)- Primary Neuropathy Mononeuritis of unspecified site Diabetes 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, unspecified whether assisted insulin use (HCC)- Primary Pain due to onychomycosis of toenails of both feet Venous insufficiency Unspecified venous (peripheral) insufficiency [facility]* Diagnosis Diabetes 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, unspecified whether intermediate teacher insulin use (HCC)- Primary Neuropathy Mononeuritis of unspecified site Right foot pain Pain in soft tissues of limb Diabetes 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, unspecified whether intermediate teacher insulin use (HCC)- Primary Pain due to onychomycosis of toenails of both feet Venous insufficiency Unspecified venous (peripheral) insufficiency [facility]* Diagnosis Diabetes 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, unspecified whether intermediate teacher insulin use (HCC)- Primary Pain due to onychomycosis of toenails of both feet Venous insufficiency Unspecified venous (peripheral) insufficiency Amputation of toe of right foot documented [facility]* Diagnosis Asymmetrical sensorineural hearing loss- Primary Sensorineural hearing loss, asymmetrical documented [facility]* Diagnosis Diabetes 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, unspecified whether intermediate teacher insulin use (HCC)- Primary Cellulitis of right foot Osteomyelitis of ankle or foot, acute, right (HCC) documented in [facility]* Diagnosis Osteomyelitis of ankle or foot, acute, right (HCC)- Primary Cellulitis of right foot Diabetes 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, unspecified whether intermediate teacher insulin use (HCC) Venous insufficiency Unspecified venous (peripheral) insufficiency documented [facility] encounter [facility]* Clinical Note Date No Information [facility] Work Phone: [facility] general Narrative - Reported* Type Description Date [...] first metatarsal 11-16-18 Hospitalization History see above [employer] [facility] Other [email or web address] general Narrative - Reported* Type Description Date [...] Foot Surgery 10/27/2021 Hospitalization History see above [employer] [facility] Other [email or web address] general Narrative - Reported* Type Description Date [...] Foot Surgery 10/27/2021 Hospitalization History see above [employer] Other History of Past illness Narrative* Condition Effective Dates (start - stop) O utcome No Information [facility] Work Phone: History of Present illness Narrative* Encounter Date Complaint History Of Prese nt Illness No Information [facility] Work Phone: Hospital Discharge instructionsAmbulatory Orders* Referral to Vascular Surgery Location: None [facility] Work Phone: Hospital Discharge instructions Additional Instructions Follow Podiatry orders-- *Keep right foot dressing dry and intact *No weight bearing on right foot[facility] Work Phone: Instructions* Date Instruction Additional Infor mation No Information [facility] Work Phone: Progress note* Clinical Note Date No Information [facility] Work Phone: Recepz for referral (narrative)No reason for referral information [facility] Work Phone: Reason for referral (narrative)* Reason For Referral No Information [facility] Work Phone: Realcv for visit Narrative* Consultation (Routine) - Closed Specialty Diagnoses / Procedures Referred By Contac t Referred To Contact Neurology Diagnoses Neuropathic pain, MRI / labs @ [facility] , ref by Dr Hickman Procedures ND OFFICE/OUTPATIENT NEW LOW MDM 30 MINUTES NEURO NEW PATIENT Haider Hickman MD [address] [place] [address] Phone: tel: fax: Matthew May DO [address] [place] [address] Phone: tel: fax: Referral ID Status Reason Start Date Expiration Date V isits Requested Visits Authorized [id number] Closed Consult and Treat 08/22/2024 02/18/2025 1 1 [facility] Rehabilitation - Outpatient (Routine) - Authorized Specialty Diagnoses / Procedures Referred By Contac t Referred To Contact Physical Therapy Diagnoses Imbalance Procedures ND OFFICE/OUTPATIENT NEW HIGH MDM 60 MINUTES David Wong MD [address] [facility] [address] [place] [address] Phone: tel: fax: Morgan Arnold, PT [address] [place] [address] Phone: tel: fax: Referral ID Status Reason Start Date Expiration Date Visits Requested Visits Authorized [id number] Authorized Consult and Treat 03/31/2025 10/08/2025 1 5 [facility] N[facility]* Rehabilitation - Outpatient (Routine) - Authorized Specialty Diagnoses / Procedures Referred By Contac t Referred To Contact Physical Therapy Diagnoses Imbalance Procedures ND OFFICE/OUTPATIENT NEW HIGH MDM 60 MINUTES David Wong MD [address] [facility] [address] [place] [address] Phone: tel: fax: Morgan Arnold, PT [address] [place] [address] Phone: tel: fax: Referral ID Status Reason Start Date Expiration Date Visits Requested Visits Authorized [id number] Authorized Consult and Treat 03/31/2025 10/08/2025 1 10 [facility] Narrative - Reported* System Pos/Neg Findings No Information [facility] Work Phone: Summary Purpose Family History [...] Type Diagnosis Age At Onset No Information Relationship Condition Age at Onset Recorded Date/T roshni aunt Obesity Unknown father History of stroke Unknown Heart disease Unknown Unknown Diabetes mellitus Unknown grandparent Obesity Unknown mother Unknown History of stroke Unknown Multiple sclerosis Unknown sister Unknown Advance Directives No Advanced [...] ref by Marce Bowen for lymphedema [facility] 2024 11:16am Reason for Visit Admit Date Right leg pain March 13, 2025 1:13p m Right lumbar radiculopathy March 13 1:13pm Toe pain, right March 19, 2025 11:1 6am Chief Complaint Admit Date pain in toe March 13, 2025 1:13p m M79.604 M54.50 M54.16 March 13, 2025 2:2 6pm ref by Marce Bowen for lymphedema J [facility] 2024 11:16am M79.604 March 19, 2025 11:5 [...] 2 diabetes mellitus March 26, 2025 12:57pm Chief Complaint Admit Date Cellulitis July 03, 2025 4:13pm Reason for Visit Admit Date Acute hematogenous osteomyelitis, right ankle and foot July 03, 2025 4:13pm Bilateral lower extremity edema 2024 4:13pm Cellulitis July 03, 2025 4:13pm Cellulitis of right foot July 03, 2025 4:13pm Diabetes mellitus due to und erlying condition with diabetic polyneuropathy July 03, 2025 4:13pm Hemosiderin pigmentation of lower extremity due to varicose veins July 03, 2025 4:13pm Venous hypertension of both lower extrem ities July 03, 2025 4:13pm Wound of right foot July 03, 2025 4:13pm Reason for Referral Specialty Diagnoses / Procedures Referred By Segundo joshua Referred To Contact Radiology Diagnoses Internal derangement of left shoulder Procedures MR shoulder left wo IV contrast Chelle Brandon NP [address] [address] Referral ID Status Reason Start Date Expiration Date V isits Requested Visits Authorized [id number] Pending Review 07/01/2024 12/28/2024 1 1 Specialty Diagnoses / Procedures Referred By Segundo t Referred To Contact Orthopaedic Surgery Diagnoses Impingement of left shoulder Procedures L Inj/Asp: L subacromial bursa Chelle Brandon NP [address] [address] Referral ID Status Reason Start Date Expiration Date V isits Requested Visits Authorized [id number] Authorized 06/12/2024 12/09/2024 1 1 Specialty Diagnoses / Procedures Referred By Segundo t Referred To Contact Diagnoses Acquired deformity of right toe Shyam Cam, AUGUSTIN FACFAS [address] [place] [address] Referral ID Status Reason Start Date Expiration Date V isits Requested Visits Authorized [id number] Pending Review 06/19/2024 12/16/2024 1 1 Specialty [...] [facility] 60 MINUTES Chiqui Robles MD [address] [place] [address] Referral ID Status Reason Start Date Expiration Date Visits Requested Visits Authorized [id number] Authorized PCP Requested Referral 06/25/2024 04/24/2025 1 1 Specialty Diagnoses / Procedures Referred By Contac t Referred To Contact Infectious Diseases Diagnoses Dermatitis of lower extremity Procedures CONSULT TO INFECTIOUS DISEASES OFFICE/OUTPATIENT [facility] 60 MINUTES Herberth Araujo MD, PhD [address] [phone] Referral ID Status Reason Start Date Expiration Date Visits Requested Visits Authorized [id number] Authorized PCP Requested Referral 02/29/2024 02/28/2025 1 1 Specialty Diagnoses / Procedures Referred By Contac t Referred To Contact Podiatry Diagnoses Chronic toe pain, right foot Painful diabetic neuropathy (HCC) Procedures CONSULT TO PODIATRY OFFICE/OUTPATIENT [facility] 60 MINUTES Francoise Singletary MD [address] [place] [address] Referral ID Status Reason Start Date Expiration Date Visits Requested Visits Authorized [id number] Authorized PCP Requested Referral 02/05/2024 02/04/2025 1 1 Specialty Diagnoses / Procedures Referred By Contac t Referred To Contact Neurology Diagnoses Chronic toe pain, right foot Painful diabetic neuropathy (HCC) Procedures CONSULT TO NEUROLOGY OFFICE/OUTPATIENT [facility] 60 MINUTES Francoise Singletary MD [address] [place] [address] Referral ID Status Reason Start Date Expiration Date Visits Requested Visits Authorized [id number] Authorized PCP Requested Referral 02/05/2024 02/04/2025 1 1 Specialty Diagnoses / Procedures Referred By Contac t Referred To [facility] Diagnoses Chronic toe pain, right foot Painful diabetic neuropathy (HCC) Procedures CONSULT TO [facility] ([facility]IN) OFFICE/OUTPATIENT [facility] 60 MINUTES Francoise Singletary MD [address] [phone] Referral ID Status Reason Start Date Expiration Date Visits Requested Visits Authorized [id number] Pending Review PCP Requested Referral 02/05/2024 02/04/2025 1 1 Additional Source Comments REASON FOR VISIT (unrecogniz ed section and content) Reason Comments Consult Rt foot Reason Comments Established Patient Medication Update Reason Comments Nurse Triage Call Reason Comments New Patient Specialty Diagnoses / Procedures Referred By Contac t Referred To Contact [facility] Diagnoses Complex regional pain syndrome type II of right lower limb Chronic toe pain, right foot Class 3 severe obesity with serious comorbidity and body mass index (BMI) of 40.0 to 44.9 in adult, unspecified obesity type (HCC) Procedures CONSULT TO [facility] ([facility] PAIN) OFFICE/OUTPATIENT [facility] 60 MINUTES Herberth Araujo MD, PhD [address] [phone] Referral ID Status Reason Start Date Expiration Date Visits Requested Visits Authorized [id number] Pending Review PCP Requested Referral 04/03/2024 04/03/2025 [...] unspecified whether traumatic Arlen Sanchez, DO [address] [address] Phone: tel: fax: Khai Heard, DO [address] [place] [address] Phone: tel: fax: Referral ID Status Reason Start Date Expiration Date V isits Requested Visits Authorized [id number] Closed Consult and Treat 07/23/2024 01/19/2025 1 [...] [facility] 60 MINUTES Chiqui Robles MD [address] [place] [address] Referral ID Status Reason Start Date Expiration Date V isits Requested Visits Authorized [id number] Closed PCP Requested Referral 06/25/2024 04/24/2025 1 [...] [facility] 04/08/25 Reason Comments DM Foot Care Reason Comments Post-op Dressing change Reason Comments Post-op (unrecognized sect ion and content) No Status [...] content) DATE CREATED AUTHOR 02/20/2023 [facility] DATE CREATED AUTHOR AUTHOR'S ORGANIZ ATION 03/09/2024 [facility] DATE CREATED AUTHOR AUTHOR'S ORGANIZ ATION 03/16/2024 [facility] DATE CREATED AUTHOR AUTHOR'S ORGANIZ ATION 08/28/2024 [facility] DATE CREATED AUTHOR AUTHOR'S ORGANIZ ATION 09/12/2024 [facility] DATE CREATED AUTHOR AUTHOR'S ORGANIZ ATION 11/06/2024 [facility] DATE CREATED AUTHOR AUTHOR'S ORGANIZ ATION 12/27/2024 [facility] DATE CREATED AUTHOR AUTHOR'S ORGANIZ ATION 01/19/2025 [facility] DATE CREATED AUTHOR AUTHOR'S ORGANIZ ATION 02/05/2025 [facility] DATE CREATED AUTHOR AUTHOR'S ORGANIZ ATION 02/21/2025 [facility] DATE CREATED AUTHOR AUTHOR'S ORGANIZ ATION 03/15/2025 [facility] DATE CREATED AUTHOR AUTHOR'S ORGANIZ ATION 06/22/2025 [facility] DATE CREATED AUTHOR AUTHOR'S ORGANIZ ATION 06/23/2025 [facility] DATE CREATED AUTHOR AUTHOR'S ORGANIZ ATION 06/25/2025 [facility] DATE CREATED AUTHOR AUTHOR'S ORGANIZ ATION 06/26/2025 [facility] DATE CREATED AUTHOR AUTHOR'S ORGANIZ ATION 06/27/2025 [facility] DATE CREATED AUTHOR AUTHOR'S ORGANIZ ATION 07/13/2025 [facility] DATE CREATED AUTHOR AUTHOR'S ORGANIZ ATION 07/14/2025 [facility] DATE CREATED AUTHOR AUTHOR'S ORGANIZ ATION 07/16/2025 [facility] DATE CREATED AUTHOR AUTHOR'S ORGANIZ ATION 07/19/2025 [facility] EPIC DATE CREATED AUTHOR AUTHOR'S ORGANIZ ATION 07/20/2025 [facility] Care Teams (unrecognized sec tion and content) Team Status: Active Member Role Status Dates Deo Hickman Primary Care Provider Active Team Status: Active Member Role Status Dates Deo Hickman Primary Care Provider Active Sta rt: July 03, 2025 Neo Venegas MD Admit Provider Active Start: Se pt2024 Neo Venegas MD Other Provider Active Start: Se pt2024 Khai Vega MD Other Provider Active Start: July 03, 2025 Bassam Aguilar DPM Other Provider Active Sta rt: July 03, 2025 Tereso Gramajo MD Other Provider Active Start: [facility] Nat Weldon NP-C Attending Provider Active Start: July 03, 2025 Team Status: Active Member Role Status [...] September 11, 2023 End: September 11, 2023 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 Start Date End Date Miguelangel Mac MD [address] [place] [address] 1 [address] [place] [address] Referring Pain Management 01/29/24 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 Start Date End Date Miguelangel Mac MD [address] [place] [address], [place] [address] Referring Pain Management 01/29/24 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 Start Date End Date Miguelangel Mac MD [address] [place] [address], [place] [address] Referring Pain Management 01/29/24 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 Start Date End Date Miguelangel Mac MD [address] [place] [address], [place] [address] Referring Pain Management 01/29/24 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 Start Date End Date Haider Hickman MD [address] [place] [address] PCP - General Family Medicine 03/26/24 Miguelangel Mac MD [address] [place] [address], [place] [address] Referring Pain Management 01/29/24 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 Start Date End Date Haider Hickman MD [address] [place] [address] [place] [address] PCP - General Family Medicine 03/26/24 Miguelangel Mac MD [address] [place] [address] [place] [address] Referring Pain Management 01/29/24 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 Start Date End Date Haider Hickman MD [address] [place] [address] PCP - General Family Medicine 03/26/24 Miguelangel Mac MD [address] [place] [address] Referring Pain Management 01/29/24 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 Start Date End Date Haider Hickman MD [address] [place] [address] PCP - General Family Medicine 03/26/24 Miguelangel Mac MD [address] [place] [address] Referring Pain Management 01/29/24 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 Start Date End Date Haider Hickman MD [address] [place] [address] PCP - General Family Medicine 03/26/24 Miguelangel Mac MD [address] [place] [address] Referring Pain Management 01/29/24 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 Start Date End Date Haider Hickman MD [address] [place] [address] PCP - General Family Medicine 03/26/24 Miguelangel Mac MD [address] [place] [address] Referring Pain Management 01/29/24 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 Start Date End Date Haider Hickman MD [address] [facility] [place] [address] PCP - General Family Medicine 05/09/24 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 Start Date End Date Haider Hickman MD [address] [facility] [place] [address] PCP - General Family Medicine 05/09/24 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 Start Date End Date Haider Hickman MD [address] [facility] [place] [address] PCP - General Family Medicine 05/09/24 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 Start Date End Date Haider Hickman MD [address] [facility] [place] [address] PCP - General Family Medicine 05/09/24 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 Start Date End Date Haider Hickman MD [address] [facility] [place] [address] PCP - General Family Medicine 05/09/24 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 Start Date End Date Haider Hickman MD [address] [place] [address] PCP - General Family Medicine 03/26/24 Miguelangel Mac MD [address] [place] [address] 1 [address] [place] [address] Referring Pain Management 01/29/24 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 Start Date End Date Haider Hickman MD [address] [facility] [place] [address] PCP - General Family Medicine 05/09/24 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 Start Date End Date Haider Hickman MD [address] [place] [address] PCP - General Family Medicine 05/09/24 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 Start Date End Date Haider Hickman MD [address] [place] [address] PCP - General Family Medicine 05/09/24 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 Start Date End Date Haider Hickman MD [address] [place] [address] PCP - General Family Medicine 05/09/24 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 Start Date End Date Haider Hickman MD [address] [place] [address] PCP - General Family Medicine 05/09/24 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 Start Date End Date Haider Hickman MD [address] [place] [address] PCP - General Family Medicine 05/09/24 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 Start Date End Date Haider Hickman MD [address] [place] [address] PCP - General Family Medicine 05/09/24 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 Start Date End Date Haider Hickman MD [address] [place] [address] PCP - General Family Medicine 05/09/24 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 Start Date End Date Haider Hickman MD [address] [place] [address] PCP - General [facility] Medicine 05/09/24 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 Start Date End Date Haider Hickman MD [address] [place] [address] PCP - General [facility] Medicine 05/09/24 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 Start Date End Date Haider Hickman MD [address] [facility], [place] [phone] PCP - [facility] Medicine 05/09/24 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 Start Date End Date Haider Hickman MD [address] [facility], [place] [id number] PCP - [facility] Medicine 05/09/24 Team Status: Inactive Member Role [...] March 19, 2025 End: March 19, 2025 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 Start Date End Date Haider Hickman MD [address], [place] [id number] PCP - General Family Medicine 05/09/24 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 Start Date End Date Haider Hickman MD [address] [place], [place] [id number] PCP - General Family Medicine 05/09/24 Team [...] April 03, 2025 End: April 03, 2025 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 Start Date End Date Haider Hickman MD [address], [place] [id number] PCP - General Family Medicine 05/09/24 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 Start Date End Date Haider Hickman MD [address] [place] [address] PCP - General Family Medicine 05/09/24 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 Start Date End Date Haider Hickman MD [address], [place] [phone] PCP - General Family Medicine 05/09/24 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 Start Date End Date Haider Hickman MD [address] [place], [place] [id number] PCP - General Family Medicine 05/09/24 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 Start Date End Date Haider Hickman MD [address] [place] [address] PCP - General Family Medicine 05/09/24 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 Start Date End Date Haider Hickman MD [address] [place] [address] PCP - General Family Medicine 05/09/24 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 Start Date End Date Haider Hickman MD [address] [place] [address] PCP - General Family Medicine 05/09/24 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 Start Date End Date Haider Hickman MD [address] [facility] [place] [address] PCP - General Family Medicine 05/09/24 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 Start Date End Date Haider Hickman MD [address] [place] [address] PCP - General Family Medicine 05/09/24 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 Start Date End Date Haider Hickman MD [address] [place] [address] PCP - General Family Medicine 05/09/24 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 Start Date End Date Haider Hickman MD [address] [place] [address] PCP - General Family Medicine 05/09/24 Name Effective Dates (start - stop) Status Members No Information 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 Start Date End Date Haider Hickman MD [address] [place] [id number] PCP - General Family Medicine 05/09/24 Goals [...] prosecute any alcohol or drug abuse patient.[facility] the event this information is protected by the Federal Confidentiality of Alcohol and Drug Abuse Patient Records regulations: The Federal rules restrict any use of the information to criminally investigate or prosecute any alcohol or drug abuse patient.[facility] the event this information is protected by the Federal Confidentiality of Alcohol and Drug Abuse Patient Records regulations: The Federal rules restrict any use of the information to criminally investigate or prosecute any alcohol or drug abuse patient.[facility] the event this information is protected by the Federal Confidentiality of Alcohol and Drug Abuse Patient Records regulations: The Federal rules restrict any use of the information to criminally investigate or prosecute any alcohol or drug abuse patient.[facility] the event this information is protected by the Federal Confidentiality of Alcohol and Drug Abuse Patient Records regulations: The Federal rules restrict any use of the information to criminally investigate or prosecute any alcohol or drug abuse patient.[facility] the event this information is protected by the Federal Confidentiality of Alcohol and Drug Abuse Patient Records regulations: The Federal rules restrict any use of the information to criminally investigate or prosecute any alcohol or drug abuse patient.[facility] the event this information is protected by the Federal Confidentiality of Alcohol and Drug Abuse Patient Records regulations: The Federal rules restrict any use of the information to criminally investigate or prosecute any alcohol or drug abuse patient.[facility] the event this information is protected by the Federal Confidentiality of Alcohol and Drug Abuse Patient Records regulations: The Federal rules restrict any use of the information to criminally investigate or prosecute any alcohol or drug abuse patient.[facility] the event this information is protected by the Federal Confidentiality of Alcohol and Drug Abuse Patient Records regulations: The Federal rules restrict any use of the information to criminally investigate or prosecute any alcohol or drug abuse patient.[facility] the event this information is protected by the Federal Confidentiality of Alcohol and Drug Abuse Patient Records regulations: The Federal rules restrict any use of the information to criminally investigate or prosecute any alcohol or drug abuse patient.[facility] the event this information is protected by the Federal Confidentiality of Alcohol and Drug Abuse Patient Records regulations: The Federal rules restrict any use of the information to criminally investigate or prosecute any alcohol or drug abuse patient.[facility] the event this information is protected by the Federal Confidentiality of Alcohol and Drug Abuse Patient Records regulations: The Federal rules restrict any use of the information to criminally investigate or prosecute any alcohol or drug abuse patient.[facility] FOR RECORDS PERTAINING TO PATIENTS WHO [...] BE BASED ON THE PRIMARY CLINICAL RECORDS. [facility] [employer] [facility]. provides no warranty or guarantee of the accuracy or completeness of information in this document.
== END 2025-07-21 15:18 | disposition home or self-care (01) ==
LOC: RAD 15:20
PROVIDERS: PCP Nurse Practitioner; Visit Provider Nurse Practitioner
DX: R29.6 Repeated falls (principal); M54.2 Cervicalgia
CPT/HCPCS: 72040

== ENCOUNTER 2025-08-29 12:36 | Outpatient (OUT) | payer MEDICARE, OTHER, SELFPAY ==
--- OUTSIDE RECORDS SUMMARY | 2024-12-23 06:40 | XMS_ITS ---
Author Organization [facility] Address [address] [place] [address] Care Team Providers Care Accountant Supervisor Name Role Phone Bishop Jasmine Unavailable [phone] REASON FOR VISIT RIGHT SHOULDER MRI F/U Encounters Encounter Location Date Provider Diagnosis [facility] [address] [place] [address] [place] [address] 12/23/2024 Bishop Jasmine Plan Of Treatment No Information Progress Notes * LUISITO WHITMORE ADOB: [birth year] (75 yo M)Acc No.[id number]:12/23/2024 Patient:?LUISITO WIHTMORE :?Bishop Jasmine MDDOB:1950???Age:74 Y ???Sex:MaleDate:12/23/2024Phone:[phone]:[id number], [facility] Subjective: * Chief Complaints: * 1 . RIGHT SHOULDER MRI F/U. * Medical History: Objective: * Vitals: Assessment: Plan: * Treatment: Forms: * Images: * Electronic signature of Bishop Jasmine MD on 08/29/2025 at 12:38 PM ESTSign off status: Pending * Provider: Freida Jasmine MD Date: 0 12/23/2024 Generated for Printing/Faxing/eTransmitting on:?08/29/2025 12:38 PM EST
--- OUTSIDE RECORDS SUMMARY | 2025-05-21 07:45 | XMS_ITS | Encounter Summary ---
Author Organization [facility] Address [address] [place] [address] Care Team Providers Care Field Professional Name Role Phone Everett Miner MD Primary Care Provider Encounter Details DateTypeDepartmentCare Team (Latest Contact Info)Ltrcadqdnhm98/13/2025 8:45 AM EDTOffice Visit [facility] [place] [facility] [address] [place] [phone] Neeta Smith DPM [address] [place] [address] Diabetes 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, 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 correction insulin use (HCC) (Primary Dx); Neuropathy; Right foot pain Social History Tobacco UseTypesPacks/DayYears UsedDateSmoking Tobacco: NeverPassive Smoke Exposure: NeverSmokeless Tobacco: NeverAlcohol UseStandard Drinks/WeekComments Not Currently0 (1 standard drink = 0.6 oz pure alcohol)Sex and Gender InformationValueDate RecordedSex Assigned at BirthNot on fileLegal SexMale 12/21/2022 10:13 PM EDTGender IdentityNot on fileSexual OrientationNot on file documented as of this encounter Patient Instructions * Patient Instructions* Neeta Smith DPM - 05/21/2025 8:45 AM EDT Images from the original note were not included. Qutenza After Application Instructions During and after application and is normal to feel a slow warming or burning sensation. If you do experience this when you get home, you can apply an ice pack along the areas of burning to help you feel more comfortable. Once you are home, apply the cleansing gel on the feet. Leave this on for 3-5 minutes. Removed the gel with paper towels or a towel. Following removal your feet can be gently washed and dried. Put onclean socks and shoes can be worn as needed. Your feet may feel sensitive to heat for a few days following treatment - this is normal. To help, avoid hot showers or baths, direct sunlight and vigorous exercise. If you have discomfort, apply ice packs, topical aloe vera gel and take an uoob-xru-lfypoit pain medication such as Tylenol or Ibuprofen. If your pain does not improve with time, please contact your doctor's office to let them know. There are topical and oral pain medications that can be used to further help reduce your symptoms. Qutenza provides the best improvement after three applications. Some patients may experience significant improvement after 1 application, but most patients will need additional applications to have persistent symptom improvement. We do pre-cert every application to ensure that there are no changes with your insurance coverage. Prior to your next scheduled application appointment, we will contact you to advise you of the insurance coverage and to ensure that you would like to continue with the treatment. If you have any additional questions, feel free to contact the office. How QUTENZA works QUTENZA works directly at the nerve receptors that cause diabetic nerve pain of the feet, reducing pain for up to 3 months of relief. One 30-minute treatment, applied up to 4X a year, can provide ongoing relief. (1) The cycle of diabetic nerve pain of the feet: Damaged nerves send too many pain signals to yourbrain, resulting in pain in your feet. (2) Targeted prescription-strength patch: During a 30-minute treatment, the medicine absorbs into your skin and travels to the damaged nerves in your feet. (3) Reduces pain signals: QUTENZA reaches these damaged nerves and helps reduce the number of pain signals sent to your brain. (4) Nerve regrowth: Over time, the nerves in your feet regain the ability to send out pain signals,causing pain to return. Treatment with QUTENZA may be done every 3 months as warranted by the return of pain. QUTENZA may not be repeated more frequently than every 3 months. documented in this encounter Progress Notes * Neeta Smith DPM - 05/21/2025 8:45 AM EDT Images from the original note were not included. Neuropathy: Patient presents in office for his first Qutenza application in our office, this is his second application overall. Patient states that he is diabetic, has been for 20+ years. He has seen Dr. Simpson in the past. 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 He states that he has hadnerve damage in the right great toe. He has pain in the great toe all the time, burning pain and shooting. Patient has tried oral Gabapentin without success as well as topical compounded Rx. He cannot feel the toe with pressure, but does have a lot of pain to the toe. He went to see pain managementand they started the Qutenza on the great toe. Previous treatment has included one Qutenza treatment, which has not improved symptoms. The pain limits his ability to sleep. He does take medication tohelp with his sleep. He does feel that the toe is getting worse because he is taking this medication all the time. He has had prior x-rays, MRI (years ago) and did have a partial amputation to the toe to help reduce the pain and nothing has helped. No other complaints. Exam: General Examination: GENERAL APPEARANCE: awake, aware of surroundings, in no acute distress Vascular: DORSALIS PEDIS PULSE: 2/4, bilaterally POSTERIOR TIBIAL PULSE: 2/4, bilaterally TEMPERATURE GRADIENT: warm to cool EDEMA: mild to the ankle bilateral CAPILLARY FILLING TIME(sec): capillary fill intact bilateral digits less than 3 secs Neurologic: VIBRATORY: absent to the hallux IPJ, decreased to the ankle bilateral SEMMES-YANDY 5.07 MONOFILAMENT: absent to the ball to the foot and toes bilateral Dermatologic: SKIN FINDINGS: rash to the dorsal right foot with superficial cracks and opening to the skin HYPERKERATOSIS: none NAIL PATHOLOGY: digits 1-5 left, 4,5 right are intact SKIN PATHOLOGY: thin, absent hair growth Orthopedic: FOOT MORPHOLOGY: normal JOINT RANGE OF MOTION: limited to the right foot along the 3rd digit and hallux DEFORMITIES: partial amputation right hallux, 3rd digit, amputation 2nd digit right PAIN ELICITED WITH PALPATION OF: significant pain with palpation and pressure to the right 3rd digit along the toe. There does not appear to be as much pain to the MPJ, but patient does state that hewill get nerve and shooting pain to the right foot PAIN ELICITED WITH ROM: none MUSCLE STRENGTH: 5/5 for all pedal groups tested Assessments: Neuropathy Toe pain of unknown origin Plan: Peripheral Diabetic Neuropathy: Patient presents today for second application of Qutenza to the bilateral foot. Patient has tried amultitude of prior treatments for his diabetic neuropathy symptoms including: amputation, topical medications, oral medications without improvement. Patient previously purchased a sheet of Qutenza for application. I discussed with the patient the risks, benefits and alternatives in regards to the proposed treatment. We discussed the application process as well as the expected results. We have discussed performing a total of at least 3 applications as this is when patients will typically see this significant change in regards to symptoms related to the neuropathy following treatment. Patient el ects to proceed with application today. The right 2nd toe was cleansed with alcohol to the areas ofapplication of Qutenza. When the alcohol was dry, a Qutenza patch was applied to the dorsal and plantar bilateral foot. Light pressure was placed over the patches after opening to help with adhesion.Once the patches were mostly adhered to the foot, it was wrapped with Coban and light compression. Timer was started for a total of 30 minutes in regards to application time. Once the 30 minute timerexpired, the Qutenza patches were removed with care taken to roll the patch onto itself to prevent aerosolation of the medication. The patient was monitored through the office visit where they were in office for over 45 minutes before, during and after the treatment. A total number of [id number] units was applied to the right foot with 1 small portion of the patch applied to the end of theright 2nd digit. The right foot was cleansed thoroughly with the cleansing gel for 3-5 minutes withcare taken to apply this to the areas of application and in between the toes on the bilateral foot.The cleansing gel was then removed with 4 x 4s and the feet were cleansed and dried. After application we did discuss the expected results. Patient will follow up in 3 months for recheck and possibleadditional application of Qutenza for a total of 3 applications at patient preference based on symptom improvement or additional applications as needed. documented in this encounter Plan of Treatment DateTypeDepartmentCare Team (Latest Contact Info)Vbkxboyakwg67/22/2026 10:00 AM ESTProcedure Visit [facility] [address] [place] [phone] Bassam Simpson DPM [address] [facility] [address] [place] [address] 11/25/2025 2:15 PM ESTProcedure Visit [facility] [place] [facility] [address] [place] [address] Neeta Smith DPM [address] [place] [address] documented as of this encounter Visit Diagnoses Diagnosis Diabetes 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, 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 correction insulin use (HCC)- Primary Neuropathy Mononeuritis of unspecified site Right foot pain Pain in soft tissues of limb documented in this encounter Care Teams Team MemberRelationshipSpecialtyStart DateEnd Date Everett Miner MD [address] [place] [address] PCP - GeneralFamily Medicine05/09/24documented as of this encounter
--- OUTSIDE RECORDS SUMMARY | 2025-08-20 14:45 | XMS_ITS | Encounter Summary ---
Author Organization [facility] Address [address] [place] [address] Care Team Providers Care Sawdust Machine Operator Name Role Phone Everett Miner MD Primary Care Provider Encounter Details DateTypeDepartmentCare Team (Latest Contact Info)Bkekmjckgmh67/12/2025 2:45 PM ESTOffice Visit [facility] [place] [facility] [address] [facility] [address] [place] [address] Neeta Smith DPM [address] [place] [address] Diabetes 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, unspecified whether alf insulin use (HCC) (Primary Dx); Neuropathy; Right foot pain Social History Tobacco UseTypesPacks/DayYears UsedDateSmoking Tobacco: NeverPassive Smoke Exposure: NeverSmokeless Tobacco: NeverAlcohol UseStandard Drinks/WeekComments Not Currently0 (1 standard drink = 0.6 oz pure alcohol)Sex and Gender InformationValueDate RecordedSex Assigned at BirthNot on fileLegal SexMale 12/21/2022 10:13 PM EDTGender IdentityNot on fileSexual OrientationNot on file documented as of this encounter Progress Notes * Neeta Smith DPM - 08/20/2025 2:45 PM EST Images from the original note were not included. Neuropathy: Patient presents in office for his third Qutenza application of the right 3rd toe. Patient states that he is diabetic, has been for 20+ years. He has seen Dr. Simpson in the past. Patient has had prioramputation due to a wound and infection. He states that he has had nerve damage in the right great toe. He has pain in the great toe all the time, burning pain and shooting. Patient has tried oral Gabapentin without success as well as topical compounded Rx. He cannot feel the toe with pressure, butdoes have a lot of pain to the toe. He went to see pain management and they started the Qutenza on the great [...] to proceed with application today. The right 3rd toe was cleansed with alcohol to the [...] after the treatment. A total number of gsjbvkggnsigj568 units was applied to the right foot with 1 small portion of the patch applied to the end of theright 3rd digit. The right foot was cleansed thoroughly [...] Plan of Treatment DateTypeDepartmentCare Team (Latest Contact Info)Dblgqzybacc78/22/2026 10:00 AM ESTProcedure Visit [facility] [address] [facility] 120 [place] [address] Bassam Simpson DPM 8[address] [facility] 5 [place] [address] 11/25/2025 2:15 PM ESTProcedure Visit [facility] [place] [facility] [address] [place] [address] Neeta Smith DPSherrell [address] [place] [address] documented as of this encounter Visit Diagnoses Diagnosis Diabetes 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, unspecified whether middle or intermediate school principal insulin use (HCC)- Primary Neuropathy Mononeuritis of unspecified site Right foot pain Pain in soft tissues of limb documented in this encounter Care Teams Team MemberRelationshipSpecialtyStart DateEnd Date Everett Miner MD [address] [place] [address] PCP - GeneralFamily Medicine05/09/24documented as of this encounter
--- OUTSIDE RECORDS SUMMARY | 2025-08-21 11:00 | XMS_ITS | Encounter Summary ---
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 [address] [place] [address] fax: Referral IDStatusReasonStart DateExpiration DateVisits RequestedVisits [id number] Review Specialty Services Required / Reason for Visit * ReasonCommentsFollow-upulcer Encounter Details DateTypeDepartmentCare Team (Latest Contact Info)Cbnuovttmra74/13/2025 11:00 AM ESTOffice Visit [facility] 112 [facility] 120 [place] [address] Bassam Simpson DPM [address] [address] Foot ulcer, right, with fat layer exposed (HCC) (Primary Dx); Diabetes 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, unspecified whether longterm insulin use (HCC); Venous insufficiency; 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); Chronic ulcer of left leg with fat layer exposed (HCC) Social History Tobacco UseTypesPacks/DayYears UsedDateSmoking Tobacco: NeverPassive Smoke Exposure: NeverSmokeless Tobacco: Never Tobacco Cessation:Counseling Given: Yes Alcohol UseStandard Drinks/WeekCommentsNot Currently0 (1 standard drink = 0.6 oz pure alcohol)Sex and Gender InformationValueDate RecordedSex Assigned at Not on fileLegal XzqWqxq4712/21/2022 10:13 PM EDTGender IdentityNot on fileSexual OrientationNot on filedocumented as of this encounter Last Filed Vital Signs Vital SignReadingTime TakenCommentsBlood Pressure--Pulse--Temperature-- Respiratory Qaam419010/21/2024 11:09 AM ESTOxygen Saturation--Inhaled Oxygen Concentration--Mosjgc317 kg (276 lb)08/21/2025 11:09 AM ZLHRrvvwh153.1 cm (5' 5 )08/21/2025 11:09 AM ESTBody Mass Index45.9308/21/2025 11:09 AM ESTdocumented in this encounter Progress Notes * Bassam Simpson, GREGORIOM - 08/21/2025 11:00 AM EST Patient: Dong Alcazar : 1950 PCP: Everett Miner MD SUBJECTIVE This is a 75 y.o. male that presents today 43 days s/p right 1st ray amputation with I and D Pt denies n/f/v/c and has minimal pain to post op site. Pt states that they have been partial weight-bearing to post op foot as unable to be true NWB due to knee and balance issues. Pt presents today for follow up. Patient is type 2 diabetic Patient present today for follow up of ulceration to right foot. Pt denies any n/f/v/c. Patient states that they have been using the following treatments for the ulcer of calcium alginate with home health. Pt is a DM2. Patient has new history of ulceration to right leg and swelling to bilateral legs and had home health applying Xeroform as well as compression wraps and denies nausea vomiting chills but states drainage to right leg ulceration and has had compression wraps to legs. Allergies: Allergies Allergen Reactions Cefuroxime Unknown Celecoxib Unknown Cephalosporins Other Reaction(s): Unknown Reaction Diflunisal Unknown Dulaglutide Unknown Ibuprofen Unknown Liraglutide Unknown Metformin Hcl Unknown Naproxen Unknown Nsaids Other Rofecoxib Unknown Sulindac Unknown Past Medical History: Past Medical History: Diagnosis Date COVID-19 vaccine series completed Diabetes (HCC) Hypercholesterolemia Hypertension Neuropathy in diabetes ([facility]) PVD (peripheral vascular disease) Stress fracture Medications: [...] chills, fatigue, malaise OBJECTIVE LE EXAM: Derm: skini ntact to right foot with negative erythema, negative drainage, minimal edema with negative clinical signs of infection. Slight area ulceration proximal to the incision site has healed with negative erythema or drainage Anterior lateral right lateral calf has a 0.5 cm x 0. 5 cm x 0.2 cm subcutaneous thickness depth ulceration with slight serous drainage and negative erythema with slight fibrous slough Anterior left leg has a 4 cm x 3 cm x 0.2 cm subcutaneous thickness depth ulceration with slight fibrous slough and negative erythema but slight serous drainage +1 pitting edema to bilateral legs Vascular: Palpable pedal pulses to right foot Neuro: Gross sensation intact to right foot. Musculoskeletal: Negative pain on palpation to right calf. Ortho: Ankle range of motion less than 10 degrees of dorsiflexion at right ankle joint. ASSESSMENT 43 days s/p Right foot I and D and of right 1st ray amputation 1. Diabetes 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, unspecified whether seal mixing operator insulin use (HCC) 2. Foot ulcer, right, with fat layer exposed (HCC) 3. Venous insufficiency 4. 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 Chronic ulcer of left leg with fat layer exposed (HCC) PLAN Wound to right foot incision site is healed with area of ulceration healed Application today of multilayer compressive dressing for swelling and edema to the foot and ankle region. Dressing consisting of Webril and Yury wrap today. Today's procedure is a staged procedure andpatient may need further procedures in the future. Applied to right leg and unrelated to prior procedure Patient have home health apply multilayer compression dressing to the left leg and also discuss possible lymphedema clinic in the future Sharp debridement with 15 blade of subcutaneous ulceration to right leg with active bleeding noted and removal and excision of fibrotic and necrotic tissue to wound and DSD applied with neosporin. Ptto continue with home health treatment. Condition unrelated to prior procedure Patient would like referral to W[facility] Clinic at [facility] for bilateral leg ulcerations Bassam Simpson DPM documented in this encounter Plan of Treatment DateTypeDepartmentCare Team (Latest Contact Info)Pzwxfavjqnq82/22/2026 10:00 AM ESTProcedure Visit [facility] [address] [place] [address] Bassam Simpson DPM 3[address] [facility] [address] [place] [address] 11/25/2025 2:15 PM ESTProcedure Visit [facility] [address] [place] [phone] Neeta Smith DPM [address] [place] [address] NameTypePriorityAssociated DiagnosesOrder ScheduleAmbulatory referral to Wound ClinicOutpatient ReferralRoutine Diabetes 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, unspecified whether longterm insulin use (HCC) 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) Expected: 08/21/2025 (Approximate), Expires: 02/18/2026documented as of this encounter Visit Diagnoses Diagnosis Foot ulcer, right, with fat layer exposed (HCC)- Primary Diabetes 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, unspecified whether longterm insulin use (HCC) Venous insufficiency Unspecified venous (peripheral) insufficiency 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
--- OUTSIDE RECORDS SUMMARY | 2025-08-29 12:38 | XMS_ITS | Clinical Summary ---
Author Organization [facility] Address [facility] [place] [address] Care Team Providers Care Glaze Grinder Name Role Phone Everett Miner MD Primary Care Provider [phone] Social History Tobacco UseTypesPacks/DayYears UsedDateSmoking Tobacco: Never AssessedSex and Gender InformationValueDate RecordedSex Assigned at BirthNot on fileLegal Sex Male12/16/2024 2:11 PM EDTGender IdentityNot on fileSexual OrientationNot on file Plan of Treatment Health MaintenanceDue DateLast RuvaYaqulnrtS2W1950Medicare Wellness Visit 2Diabetic Eye Exam1959Diabetic Foot Exam1959Urine (micro)albumin/creatinine ratio - Isirftik30/02/1959eGFR ??? Mzceogie92/02/1959 Depression Screening/Follow-Up (PHQ-2/9)1961Hepatitis C Screening 1967Falls Risk Gohtxsxkkt89/02/2014Pneumococcal Vaccine: 50+ Years (2 of 2 - PCV)COVID-19 Vaccine (2024- season)2025 09/02/2024, 08/30/2023, 08/01/2022, Additional history existsInfluenza Vaccine (#1)/, 06/15/2023, 08/01/2022, Additional history exists Tetanus/Diphtheria/Pertussis (2 - Td or Tdap)5011/09/2024Zoster Vaccines Jxwzbbznk40/15/2021, 07/23/2020, 09/19/2012RSV ZwsgbtgmNumwltwts75/14/2023HIB VaccinesAged OutNo longer eligible based on patient's age to complete this topic HPV VaccinesAged OutNo longer eligible based on patient's age to complete this topicHepatitis A VaccinesAged OutNo longer eligible based on patient's age to complete this topicHepatitis B VaccinesAged OutNo longer eligible based on patient's age to complete this topicIPV VaccinesAged OutNo longer eligible based on patient's age to complete this topicMeningococcal ACWY VaccineAged OutNo longer eligible based on patient's age to complete this topicMeningococcal B VaccineAged OutNo longer eligible based on patient's age to complete this topic Rotavirus VaccinesAged OutNo longer eligible based on patient's age to complete this topic Insurance * Guarantor: Dong AlcazarAccount TypeRelation to PatientDate of BirthPhone Billing AddressPersonal/AyqtrgXkjm1950 [address] [address] PART A CLAIMS [facility] [address] [place] [address] Care Teams Team MemberRelationshipSpecialtyStart DateEnd Everett Miner MD [facility] [place] [address] PCP - GeneralFamily Medicine12/16/24
--- OUTSIDE RECORDS SUMMARY | 2025-08-29 12:38 | XMS_ITS | Clinical Summary ---
Author Organization [facility] Address [address] [place] [address] Care Team Providers Care Animal Chiropractor Name Role Phone Nanette Barajas LOAN ANALYST-C Primary Care Provider [phone] Allergies Active AllergyReactionsCriticalityNoted AgjeTgfzfoodIuzvgkbpdn97/01/2021 Ljqjacoqr95/01/8544Hafzpfhwnw48/01/3320SkfuasnnxknDzfwzgb16/10/2023Metformin 06/09/20210023Lrhumbkn46/01/2021Nsaids (Non-Steroidal Anti-Inflammatory Drug) 06/09/20213635Itnrmxerx42/01/5392Qtgdaaif42/01/2968Ixzvpnkijek17/17/2023 Medications MedicationSigDispense QuantityRefillsLast FilledStart DateEnd DateStatus buPROPion SR (Wellbutrin SR) 150 mg 12 hr tablet TAKE 1 TABLET BY MOUTH EVERY DAY IN THE NHNXOLM9710/19/2022ctive venlafaxine (Effexor) 37.5 mg tablet venlafaxine 37.5 mg tablet TAKE 1 TABLET BY MOUTH TWICE A DAYActive SITagliptin phosphate (Januvia) 100 mg tablet Januvia 100 mg tablet TAKE 1/2 TABLET BY MOUTH DAILYActive acarbose (Precose) 25 mg tablet Take 50 mg by mouth with breakfast, with lunch, and with evening meal.10/16/2022 Active sodium bicarbonate 650 mg tablet sodium bicarbonate 650 mg tablet TAKE 2 TABLETS BY MOUTH 3 TIMES A DAYActive aspirin 81 mg EC tablet in the morning.Active simvastatin (Zocor) 40 mg tablet Take 20 mg by mouth in the morning.08/25/2022ctive tiZANidine (Zanaflex) 4 mg tablet tizanidine 4 mg tablet TAKE 1 TABLET BY MOUTH EVERY DAY AT MTYPZLU2403/21/2021ctive pioglitazone (Actos) 15 mg tablet pioglitazone 15 mg tablet TAKE 1 TABLET BY MOUTH EVERY DAY FOR 90 DAYSActive nitroglycerin (Nitrostat) 0.4 mg SL tablet DISSOLVE 1 TABLET IN MOUTH EVJFFM8704/19/2022ctive blood pressure test kit-large kit Indications:Essential hypertension1 kit in the morning. 1 kit 01/11/2023ctive NovoLOG FlexPen U-100 Insulin 100 unit/mL (3 mL) pen 1:50 CORRECTIVE SCALE BEFORE MEALS 3 TIMES A DAY SUBCUTANEOUSLY DIRECTED 06/05/2023ctive omega 3-xah-xyv-fish oil (Fish OiL) 1,200 (144-216) mg capsule Take 1,200 mg by mouth in the morning.Active losartan (Cozaar) 50 mg tablet Indications:Benign hypertensive 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 Take 2 tablets (100 mg) by mouth in the morning. 180 tablet 4Active iron/calcium/vitamin D2 (CALCIUM 600 IRON/D ORAL) Calcium 600+DActive Rezdiffra 100 mg tablet Take 100 mg by mouth in the morning.5Active carvedilol (Coreg) 12.5 mg tablet Indications:Essential hypertensionTake 1 tablet (12.5 mg) by mouth with breakfast and with evening meal. 180 tablet 3096Active furosemide (Lasix) 40 mg tablet Indications:Peripheral venous insufficiencyTake 1 tablet (40 mg) by mouth if needed each day (as needed for leg swelling). 30 tablet 11095006/24/2026ctive Active Problems ProblemNoted DateDiagnosed DateChronic ulcer of left foot with fat layer exposed 03/28/2025Diabetic ujkcyyfdmdbcis38/20/2025Peripheral venous insufficiency 03/28/2025Spontaneous rupture of other tendons, right upper arm03/28/2025Strain of muscle, fascia and tendon of triceps, right arm, initial owfocfcnq86/20/2025 Tifroxb9212/18/2024Right elbow pain12/18/2024Pre-op ipxpznzfut18/12/2025DOE (dyspnea on exertion)12/18/2024enign hypertensive heart disease without congestive heart lskaxos3208/10/2024oncentric left ventricular hypertrophy 2024urrent use of wevxvlg2306/26/2024ietary counseling and surveillance 06/26/2024omplex regional pain syndrome type II of right lower limb04/03/2024 Chronic back pain11/25/20227176Bvzwijkusp89/17/2023Type 2 diabetes mellitus 11/25/2022oronary arteriosclerosis in [place] osysek6205/22/2019 Overview (06/04/2024): PTCI OF RCA X2 JANUARY 2013 LAD D1 50% CRIX X2 IN MARCH 2013 Oihczoa1110/29/2013Chest pain01/08/2013Essential hagwswylaxpe76/02/2013 Gastroesophageal reflux mkwucgb9501/08/20132882Klyutvlephmobu18/02/2013Sleep apnea 01/08/2013 Encounters DateTypeDepartmentCare IgrfPzzgxqmmrod21/16/2025 11:00 AM EDTOffice Visit [address] [place] [address] Phoebe Johnson CNP Peripheral venous insufficiency (Primary Dx); Essential hypertension; Cellulitis of right lower extremity; LVH (left ventricular hypertrophy); Mixed hyperlipidemia; Type 2 diabetes mellitus without complication, with long-term current use of insulin (CMS/HCC); Concentric left ventricular hypertrophy; Coronary arteriosclerosis in [place] artery; MILLER (dyspnea on exertion); Benign hypertensive 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; Class 3 severe obesity with serious comorbidity and body mass index (BMI) of 40.0 to 44.9 in adult,unspecified obesity type06/24/2025Orders Only [facility] [address] [place] [address] Kat Vizcaino MA 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 (CMS/HCC) (Primary Dx)from Last 3 Months Family History Medical HistoryRelationNameCommentsStrokeFatherStrokeMotherCoronary artery diseaseOtherDiabetesOtherRelationNameStatusCommentsFatherDeceasedMotherDeceased Other Social History Tobacco UseTypesPacks/DayYears UsedDateSmoking Tobacco: NeverSmokeless Tobacco: Never Tobacco Cessation:Counseling Given: Not Answered Alcohol UseStandard Drinks/WeekCommentsNot Currently0 (1 standard drink = 0.6 oz pure alcohol)UT Safety & EnvironmentAnswerDate RecordedFear of Current or Ex-PartnerNot on file11/30/2023Emotionally AbusedNot on file11/30/2023hysically AbusedNot on file11/30/2023Sexually AbusedNot on file11/30/2023hysically or Sexually AbusedNot on file11/30/2023Sex and Gender InformationValueDate Recorded Sex Assigned at KmlvxIrji64/08/2025 2:36 PM EDTLegal LnkCvmn3704/06/2022 9:46 PM EDTGender JeoaxohzEgrn07/08/2025 2:36 PM EDTSexual OrientationHeterosexual or Pttnszbz60/08/2025 2:36 PM EDT Last Filed Vital Signs Vital SignReadingTime TakenCommentsBlood Otojfnxa045/67006/24/2025 11:14 AM EDT Vbsts376706/24/2025 11:14 AM EDTTemperature--Respiratory Rate--Oxygen Saturation 97%06/24/2025 11:14 AM EDTInhaled Oxygen Concentration--Rdyauq982 kg (257 lb) 06/24/2025 11:14 AM CTKRpddma525.7 cm (5' 8 )06/24/2025 11:14 AM EDTBody Mass Index39.0806/24/2025 11:14 AM EDT Plan of Treatment DateTypeDepartmentCare Team (Latest Contact Info)Avrpzfdppdt96/18/2025 9:00 AM ESTOffice Visit [facility] [address] [place] [address] Phoebe Johnson, MEAT SERVICE TEAM MEMBER [address] [place] [address] Health MaintenanceDue DateLast DoneCommentsDiabetes: Hemoglobin A1C1950 Medicare Annual Wellness (AWV)1950Diabetes: Retinopathy Screening 1959Depression Ujlpqotlk14/02/1961Diabetes: Urine Protein Screening 1968Fall Risk Bxwckbwic13/02/2014Pneumococcal Vaccine: 50+ Years (2 of 2 - PCV)COVID-19 Vaccine (2024- season)2025 09/02/2024, 08/30/2023, 08/01/2022, Additional history existsInfluenza Vaccine (#1)/, 06/15/2023, 08/01/2022, Additional history existsAdult Cosqpzl88/10/2024Zoster HqlahrumSlsprkeqk28/15/2021, 07/23/2020, 09/19/2012HIB VaccinesAged OutNo longer eligible based on patient's age to complete this topicHPV VaccinesAged OutNo longer eligible based on patient's age to complete this topicIPV VaccinesAged OutNo longer eligible based on patient's age to complete this topicMeningococcal B VaccineAged OutNo longer eligible based on patient's age to complete this topicMeningococcal VaccineAged OutNo longer eligible based on patient's age to complete this topicRotavirus Vaccines Aged OutNo longer eligible based on patient's age to complete this topic Insurance * Guarantor: Dong Alcazar AAccount TypeRelation to PatientDate of BirthPhone Billing AddressPersonal/QqewizUssh1950 [address] [address] Care Teams Team MemberRelationshipSpecialtyStart DateEnd Date Nanette Barajas FNP-C [address] [place] [address] PCP - GeneralNurse Practitioner06/24/25
--- OUTSIDE RECORDS SUMMARY | 2025-08-29 12:38 | XMS_ITS | Encounter Summary ---
Author Organization [facility] Address [address] [place] [address] Care Team Providers Care Fire Patrol Name Role Phone Everett Miner MD Primary Care Provider Encounter Details DateTypeDepartmentCare Team (Latest Contact Info)Dfvbyegsztu01/19/2025Telephone [facility] [place] [facility] [address] [facility] [address] [place] [phone] Neeta Smith DPSherrell [address] [place] [address] Social History Tobacco UseTypesPacks/DayYears UsedDateSmoking Tobacco: NeverPassive Smoke Exposure: NeverSmokeless Tobacco: NeverAlcohol UseStandard Drinks/WeekComments Not Currently0 (1 standard drink = 0.6 oz pure alcohol)Sex and Gender InformationValueDate RecordedSex Assigned at BirthNot on fileLegal SexMale 12/21/2022 10:13 PM EDTGender IdentityNot on fileSexual OrientationNot on file documented as of this encounter Miscellaneous Notes * Telephone Encounter - Priscilla Barrett ZORAN - 08/27/2025 4:49 PM EST Patient was called regarding the above. Patient's Harmony was advised of the above. She stated that they will try the Capsacian cream at this time. She stated that the patient has tried the Ketamine infusion and he had a bad reaction to it. Harmony advised that he also tried the Ketamine pill. He started out taking 5mg of the Ketamine pill. When the patient called the prescribing doctor to for an increase in dosage, they never heard back fromthe doctor. FYI, thank you. * Telephone Encounter - Neeta Smith DPM - 08/27/2025 9:49 AM EST I reached out to Dr. Mccray who was kind enough to review your chart and prior symptoms. He feels thatyou have done just about all that he would usually treat for your neuropathy. He did recommend thatyou could try topical Capsacian cream, but this may cause some local burning. There was another medication he recommeded but states that he has not seen much improvement with it. If you would like totry the Ketamine, he said that there is a doctor that he refers to in [facility] and one in [place] if you think that you can make the drive to those places. It is a daily infusion for 5 days every month for x amount of months based on your symptom improvement. documented in this encounter Plan of Treatment DateTypeDepartmentCare Team (Latest Contact Info)Ywapauxonfl34/22/2026 10:00 AM ESTProcedure Visit [facility] [address] [place] [phone] Bassam Simpson DPM [address] [facility] [address] [place] [address] 11/25/2025 2:15 PM ESTProcedure Visit [facility] [place] [facility] [address] [place] [address] Neeta Smith DPM [address] [place] [address] documented as of this encounter Visit Diagnoses Not on filedocumented in this encounter Care Teams Team MemberRelationshipSpecialtyStart DateEnd Date Everett Miner MD [address] [place] [address] PCP - GeneralFamily Medicine05/09/24documented as of this encounter
--- OUTSIDE RECORDS SUMMARY | 2025-08-29 12:38 | XMS_ITS | Clinical Summary ---
Author Organization [employer] [facility] tem Address [id number] [address] [place] [address] Care Team Providers Care Quality Assurance Consultant Name Role Phone Venice Johnson MD Primary Care Provider [phone] Allergies Active AllergyReactionsCriticalityNoted YhtdCvrdapxsOhlvpdmvtb60/01/2021 Cefuroxime Xuvhgp7606/09/20219257Situttxpp39/01/5140Gkccetby72/01/2021iflunisal 06/09/20215101Zyjzmdqdx01/01/5321Gzfdmovu92/01/2021Nsaids (Non-Steroidal Anti- Inflammatory Drug)06/09/20218160Uyhjeneigsr67/01/4932Kehddpuqx53/01/2021 Medications MedicationSigDispense QuantityRefillsLast FilledStart DateEnd DateStatus metoprolol tartrate (LOPRESSOR) 50 mg tablet metoprolol tartrate 50 mg tabletActive buPROPion SR (WELLBUTRIN SR) 150 mg 12 hr tablet bupropion HCl SR 150 mg tablet,12 hr sustained-releaseActive nitroglycerin (NITROSTAT) 0.4 MG SL tablet nitroglycerin 0.4 mg sublingual tabletActive simvastatin (ZOCOR) 40 mg tablet simvastatin 40 mg tabletActive pioglitazone (ACTOS) 15 mg tablet pioglitazone 15 mg tabletActive aspirin 81 mg daily.Active ACCU-CHEK GUIDE TEST STRIPS strip CHECK BLOOD SUGAR ONCE DAILY E11.42004/14/2021ctive omega 1-hgf-avc-fish oil (Fish OiL) 100-160-1,000 mg capsule Fish Oil 1200mg BIDActive calcium carbonate-vitamin D3 600 mg(1,500mg) -200 units per tablet Calcium 600Active blood sugar diagnostic, drum (ACCU-CHEK COMPACT PLUS TEST) strip Accu-Chek Compact Test stripsActive acarbose (PRECOSE) 25 mg tablet 3 (three) times a day. Active losartan (COZAAR) 50 mg tablet losartan 50 mg tabletActive JANUVIA 100 mg tablet Take 50 mg by mouth daily.05/23/2021ctive sodium bicarbonate 650 mg tablet 3 (three) times a day.Active tiZANidine (ZANAFLEX) 4 mg tablet TAKE 1 TABLET BY MOUTH EVERYDAY AT GAHCIJJ3803/21/2021ctive venlafaxine (EFFEXOR) 37.5 mg tablet Take 37.5 mg by mouth 2 (two) times a day.05/23/2021ctive SUPREP BOWEL PREP KIT 17.5-3.13-1.6 gram recon soln 177 ml,actual weight, 2 times daily, Oral 177 mL 07/30/2021ctive phenytoin (DILANTIN) 100 mg ER capsule Indications:Atypical neuralgiaTake 1 capsule (100 mg total) by mouth in the morning and 1 capsule (100 mg total) before bedtime. 180 capsule 04/01/2022ctive Active Problems No known active problems Family History RelationNameStatusCommentsBrotherDeceasedDaughter 1AliveDaughter 2AliveFather DeceasedMotherDeceasedSisterDeceased Social History Tobacco UseTypesPacks/DayYears UsedDateSmoking Tobacco: NeverSmokeless Tobacco: NeverAlcohol UseStandard Drinks/WeekCommentsNot Currently0 (1 standard drink = 0.6 oz pure alcohol)PHQ-2AnswerDate RecordedTotal Xkhbu5922Childcare AnswerDate ZbbhkeadGvbuvudrtKzqhxuw73/11/2019EmploymentAnswerDate Recorded PtigtywmmuFosfqfq55/11/2019Sex and Gender InformationValueDate RecordedSex Assigned at BirthNot on fileLegal ChfYrer9205/12/2015 8:27 PM EDTGender Identity Not on fileSexual OrientationNot on file Last Filed Vital Signs Vital SignReadingTime TakenCommentsBlood Vppiqidt742/6104 10:43 AM EDT Ddomv9686 10:43 AM ZTISsgywtupppp52.1 ??C (96.9 ??F)07/30/2021 9:27 AM EDTRespiratory Rate--Oxygen Saturation--Inhaled Oxygen Concentration--Weight 123.4 kg (272 lb)02/01/2022 10:43 AM ZUCYaslek974.7 cm (5' 7.99 )02/01/2022 10:43 AM EDTBody Mass Index41.37002/01/2022 10:43 AM EDT Plan of Treatment Health MaintenanceDue DateLast DoneCommentsDepression Zcpjbfbnl42/02/1961Tobacco Pzdnbbzox68/02/1961TaP,Tdap and Td Vaccines (1 - Tdap)1968Fall Risk Itwwussps84/02/2014RSV ( or age 60+ yrs) (1 - 1-dose 75+ series) 2024OVID-19 Vaccine ( - season)/08/2021, 12/30/2020, 12/02/2020Influenza Adwmmuc69/04/2021, 07/23/2020, 06/06/2019, Additional history uzfwzgVzysfadghjg79Zoster (Shingles) VfzqyotYxorjumfj09/15/2021, 07/23/2020, 09/19/2012 Medical Devices Not on file Procedures Procedure NamePriorityDate/TimeAssociated DiagnosisCommentsCOLONOSCOPYRoutine 08/11/2021 Left-sided abdominal pain of unknown etiology from Last 3 Months or Most Recently Relevant to Health Maintenance Results * Colonoscopy (08/11/2021) Narrative Authorizing ProviderResult TypeResult StatusMichael E Georgette SANTIAGO PROCEDURE ORDERABLESFinal ResultPerforming OrganizationAddressCity/State/ZIP CodePhone Number MANUALLY TRANSCRIBED RESULTS from Last 3 Months or Most Recently Relevant to Health Maintenance Insurance * Guarantor: Dong Alcazar AAccount TypeRelation to PatientDate of BirthPhone Billing AddressPersonal/DflmdpTtxf1950 [address] [address] Care Teams Team MemberRelationshipSpecialtyStart DateEnd Venice Johnson MD [facility]07/[facility]
--- OUTSIDE RECORDS SUMMARY | 2025-08-29 12:38 | XMS_ITS | Clinical Summary ---
Author Organization [facility] Address [address] [place] [address] Care Team Providers Care Inlayer Name Role Phone Miguelangel Mac MD Unavailable [phone] Everett Miner MD Primary Care Provider [phone] Allergies Active AllergyReactionsCriticalityNoted DateCommentsNsaids (Non-Steroidal Anti- Inflammatory Drug)GI Upset02/05/2024 Medications MedicationSigDispense QuantityRefillsLast FilledStart DateEnd DateStatus fish oil/borage/flax/om3,6,9 1 (FISH,BORA,FLAX OILS-OM3,6,9NO1 ORAL) Take by mouth every 24 hours.Active metoprolol succinate ER (TOPROL XL) 50 mg 24 hr tablet Take 1 tablet by mouth every 12 hours.12/26/2023ctive buPROPion XL (WELLBUTRIN XL) 300 mg 24 hr tablet 02/05/2024ctive venlafaxine (EFFEXOR) 37.5 mg tablet Take 1 tablet by mouth every 12 hours.12/03/2023ctive acarbose (PRECOSE) 50 mg tablet 02/05/2024ctive JANUVIA 100 mg tablet Take 1 tablet by mouth every afternoon.01/23/2024ctive sodium bicarbonate 650 mg tablet TAKE 2 TABLETS BY MOUTH 3 TIMES A DAY FOR 90 DAYS01/28/2024ctive DOCOSAHEXAENOIC ACID ORAL Fish Oil 1200mg BIDActive calcium carbonate 600 mg-cholecalciferol 200 units 600 mg-5 mcg (200 unit) tab Calcium 600Active losartan (COZAAR) 50 mg tablet Take 1.5 tablets by mouth every afternoon.02/01/2024ctive simvastatin (ZOCOR) 40 mg tablet Take 40 mg by mouth every evening.01/01/2024ctive tiZANidine (ZANAFLEX) 4 mg tablet Take 4 mg by mouth three times a day as needed.01/22/2024ctive pioglitazone (ACTOS) 30 mg tablet Take 1 tablet by mouth every afternoon.12/03/2023ctive nitroglycerin sublingual (NITROQUICK) 0.4 mg SL tablet 04/19/2022ctive aspirin, enteric coated (ASPIRIN, ENTERIC COATED) 81 mg EC tablet Take 81 mg by mouth once daily.Active memantine (NAMENDA) 10 mg tablet Indications:Complex regional pain syndrome type II of right lower limbTAKE 1 TABLET BY MOUTH EVERY DAY 90 tablet ctive pregabalin (LYRICA) 75 mg capsule Take 75 mg by mouth two times a day.08/01/2024ctive Active Problems ProblemNoted DateDiagnosed DateChronic toe pain, right foot04/03/2024omplex regional pain syndrome type II of right lower limb04/03/2024lass 3 severe obesity with serious comorbidity and body mass index (BMI) of 40.0 to 44.9 in adult02/05/2024 Social History Tobacco UseTypesPacks/DayYears UsedDateSmoking Tobacco: NeverSmokeless Tobacco: Never Tobacco Cessation:Counseling Given: Not Answered Alcohol UseStandard Drinks/WeekCommentsNot Currently0 (1 standard drink = 0.6 oz pure alcohol)PHQ-2AnswerDate RecordedPHQ-2 jddjn21704/17/2024rea Deprivation IndexAnswerDate RecordedNational Score (1-100), lower number is lower risk67 02/05/2024State Score (1-10), lower number is lower cvtb21902/05/2024ata from: https://www.neighborhoodatlas.medicine.[facility].edu/. Last address used for hob[address]kbq[address] [place] [address]/05/2024Sex and Gender InformationValueDate RecordedSex Assigned at BirthNot on fileLegal DyyXmkm06/02/2012 9:44 AM EST Gender IdentityNot on fileSexual OrientationNot on file Last Filed Vital Signs Vital SignReadingTime TakenCommentsBlood Ueawgmnf306/6911 9:59 AM EST Quwpe9850 9:59 AM VUYXzqsmfvxxne04.3 ??C (97.4 ??F)04/03/2024 9:26 AM EDTRespiratory Sjsn950810/14/2023 9:59 AM ESTOxygen Cldzzzkjwx01%08/14/2024 9:59 AM ESTInhaled Oxygen Concentration--Bmjzhy465.2 kg (258 lb 6.1 oz)08/14/2024 9:59 AM ZDWKtdmkf466.2 cm (5' 7.01 )04/24/2024 8:50 AM EDTBody Mass Index40.46 04/24/2024 8:50 AM EDT Plan of Treatment Health MaintenanceDue DateLast CbpvIvhzzrqnEwG8M07/02/1954Diabetic Foot Exam 1959Dilated Retinal Exam1959Urine Albumin:Creatinine Ratio1959 Annual PCP Team Chronic Disease Visit1967Anxiety Lzgunrzvb08/02/1967 Depression Mpgjllmbj29/02/1967Hepatitis C Spdhnikpr67/02/1967LDL Cholesterol 1967DTaP,Tdap,Td Vaccine (1 - Tdap)1968Pneumococcal Vaccine: 50+ (1 of 2 - PCV)1968Shingrix Vaccine (1 of 2)1999Medicare Annual Wellness Visit04/08/2012RSV Vaccine (1 - 1-dose 75+ series)2024dvance Directive Tvoneoztry34/01/2025ovid-19 Vaccine ( season), 12/02/2020Influenza Vaccine (#1)2025 Medical Devices ImplantedTypeAreaManufacturerDevice IdentifierShelf Expiration DateModel / Serial / LotLead Axium Slimtip 1mm 5mm Space 50mm Neurostimulator Front Load 4 Implanted:Qty: 1 [facility] 04[facility]03/2024 at [facility] BUILDINGLeadN/A: Spine - LumbarABBOTT LABS HOSP WTKIJBAC69/02/[id number] / [id number] / Insurance Care Teams Team MemberRelationshipSpecialtyStart DateEnd Everett Miner MD [address] [place] [address] PCP - GeneralFamily Medicine03/26/24 Miguelangel Mac MD [address] [place] [address] [address] [place] [address] ReferringPain Management01/29/24
--- OUTSIDE RECORDS SUMMARY | 2025-08-29 12:38 | XMS_ITS | Patient Health Record ---
Author Organization [facility] Address [address] [place] [address] Care Team Providers Care Silver Recovery Operator Name Role Phone Jasmine, Bishop Unavailable [phone] Priscilla Neves Unavailable [phone] Carlene Dunham Unavailable Allergies Allergen (clinical drug ingredient) Drug/Non Drug Allergy documented on EMR Reaction Allergy Type Onset Date Status NSAIDS (uncoded)UnknownAllergyActivevioxx (uncoded)UnknownAllergyActive diflunisalDolobidUnknownDrug AllergyActivecefuroximeUnknownDrug AllergyActive metforminmetFORMINUnknownDrug AllergyActivecelecoxibCeleBREXUnknownDrug Allergy ActivenaproxenNaprosynUnknownDrug AllergyActiveliraglutideVictozaUnknownDrug AllergyActivedulaglutideTrulicity PenUnknownDrug AllergyActive Results Component Value Reference Range Notes MRI : Elbow W/O Contrast Rig ht - [id number] Reviewed date:12/19/2024 11:03:19 AM Interpretation: Performing Lab: Notes/Report: MRI : Elbow W/O Contrast Rig ht - [id number] Reviewed date:12/19/2024 11:38:18 AM Interpretation: Performing Lab: Notes/Report: Reason For Referral Reason NAI................m edicare NOT SCHEDULED RIGHT ELBOW MRI AT [facility] Diagnosis 1 Right elbow pain (M2 5.521) Referral Organization [facility] Offic e Referring Provider First Name Bishop Referring Provider Last Name Mitali Referring Provider Speciality Orthopedic Surgery Referred Organization [facility] Referred Address [address] [place] [address] ,[place], [place],[address],[place] Referred Provider Specialty Radiology Procedure 1 MRI Joint Upper Ext w/o Dye ([id number]) General Notes Yarelis Yanez 025 01:21:20 PM >PER AVAILITY, PATIENT IS ACTIVE PART A AND PART B, NO AUTH REQUIRED MA NOTIFIE REF FAXED TO Dionne CHRISTINA Kimberly 12/09/2024 03:08:07 PM > Faxed order to Parul [facility] Monica 12/16/2024 11:19:21 AM > patient was unable to complete MRI, location change to [facility] for Open MRI in [place]. Can we resubmit with location change?, Yarelis Yanez 12/16/2024 11:44:35 AM >HE'S MEDICARE, NO AUTH REQUIRED. FACILITY WILL NOT MATTER, Shelby Truong 12/16/2024 12:35:32 PM > Faxed order to [facility] Referral Priority Routine Referral Appointment Date 12/09/2024 Medications Medication SIG (Take, Route, Frequency, Duration) Notes Start Date End Date Status aspirin ActiveCalcium 600+DActivesimvastatinActivelosartanActiveFish OilActivesodium bicarbonateActiveJanuviaActivepioglitazoneActivebuPROPionActivetiZANidineActive Metoprolol Succinate ERActiveacarboseActiveNitrostatActivevenlafaxineActive Social History Tobacco Use: Social History Observation Description Date Details (start date - stop date) Never Smoker NA - NA AUDIT-C (Standard) Question Answer Notes Did you have a drink containing alcohol in the p ast year? No Qxqiih0UbfbleukjwubheFahihsrzQbtvkow Control (Standard) Question Answer Notes Tobacco use: Nonsmoker Problems Problem Type SNOMED Code ICD Code Onset Dates Problem Status W/U Status Risk Notes Problem Arthralgia of the upper arm (360885788) R ight elbow pain (M25.521) ActiveconfirmedProblemRupture of tendon of biceps, long head (61953623) Spontaneous rupture of other tendons, right upper arm (M66.821)Activeconfirmed ProblemStrain of muscle, fascia and tendon of triceps, right arm, initial encounter (S46.311A)ActiveconfirmedProblemAnxiety (02647582)Anxiety (F41.9) Activeconfirmed Vital Signs Height 5'7 in 01/06/2025 Aikhgc213 lbs01/06/2025BMI42.28001/06/2025 Encounters Encounter Location Date Provider Diagnosis [facility] [address] [place] [address] [place] [address] 12/09/2024 [facility] Right elbow pain M25.521 [facility] [address] [facility] [facility] [address] [place] [address] 12/16/2024 Bishop Mitali Right elbow pain M25.521 [facility] [address] [place] [address] 12/20/2024 Bishop Jasmine Strain of muscle, fascia and tendon of triceps, right arm, initial encounter S46.311A [facility] [address] [facility] [facility] [place] [address] [place] [address] 01/06/2025 Bishop Jasmine Right elbow pain M25.521 [facility] [address] [place] [address] 12/11/2024 Priscilla Neves Anxiety F41.9 [facility] [place] [address] [place] [address] 12/13/2024 Bishop Jasmine Assessments Encounter Date Diagnosis (ICD Code) Assessment Notes Treatment Notes Treatment Clinical Notes Section Notes 12/09/2024 Right elbow pain (ICD-10 - M25.5 21) Right elbow pain-possible triceps tendon tear12/11/2024nxiety (ICD-10 - F41.9) 12/16/2024Right elbow pain (ICD-10 - M25.521)12/20/2024Strain of muscle, fascia and tendon of triceps, right arm, initial encounter (ICD-10 - S46.311A) 01/06/2025Right elbow pain (ICD-10 - M25.521)12/09/2024OtherFor the patient's right elbow pain I will have him remain in the posterior splint and have ordered an MRI to further evaluate for a triceps tendon tear. We did discuss risk/benefits of conservative treatment versus surgical fixation should he have a full tear. Today patient is somewhat hesitant to the idea of surgical fixation if needed. He would need cardiac/medical clearance prior to surgery. We will see him back in the office next Monday to review MRI results.Right elbow pain- possible triceps tendon tear12/16/2024Other I have recommended an open MRI scan to evaluate for a rupture of his triceps tendon. We have discussed both risks and benefits of conservative and surgical treatment for his injury. He does have quite a bit of balance issues and uses a walker and cane and additionally uses his arms to push up from seated position and is concerned that he would not do well leaving it as it is. He does have a significant cardiac history and we have discussed risk of cardiac events and heart attack at the time of surgery. 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 We will obtain an MRI scan and he will follow-up once the MRI is complete. Import medication 12/20/2024Other Since he was last seen the patient reports that he is not sure at this point that he wants to proceed with surgery. He is very concerned that he would be able to manage with his arm splinted for 6 weeks and then another 6 weeks of 5 pound restriction. He reports he is having very minimal discomfortin his elbow and for now we will hold off on surgery. He will follow-up in 2 weeks to reassess his progress. We have discussed without surgery we would expect for long-term weakness and potential forpain. Import medication 01/06/2025Other We have again discussed both conservative and surgical treatment options. Given he is doing well his preference is to proceed nonoperatively. He will continue with activities as he can tolerate and follow-up on an as-needed basis. Import medication Plan Of Treatment No Information Insurance Providers Payer Name Payer Address Payer Phone Subscriber Number Group Number Insured Name Patient Relationship to Insured Coverage Start Date Coverage End [place] [address] [place] [address] [id number] Sloane WHITMORE - [facility] the [facility] [address] [place] [id number], STEPHENSelf - patient is the insured Medical (General) History Medical History History ICD Code Heart problems: Type II diabetesHigh Blood PressureDepressionAnxietyKidney troubleSleep apnea CPAP Machine:Do you use the CPAP machine? YesDrug AllergiesSurgical History Surgery Date(Month/Year) Toe removed
--- OUTSIDE RECORDS SUMMARY | 2025-08-29 12:39 | XMS_ITS | Encounter Summary ---
Author Organization [facility] Address [address] [place] [address] Care Team Providers Care Properties Supervisor Name Role Phone Everett Mienr MD Primary Care Provider [phone] Encounter Details DateTypeDepartmentCare Team (Latest Contact Info)Uzskxfjwjfz25/13/2025Travel Social History Tobacco UseTypesPacks/DayYears UsedDateSmoking Tobacco: NeverPassive Smoke Exposure: NeverSmokeless Tobacco: NeverAlcohol UseStandard Drinks/WeekComments Not Currently0 (1 standard drink = 0.6 oz pure alcohol)Sex and Gender InformationValueDate RecordedSex Assigned at BirthNot on fileLegal SexMale 12/21/2022 10:13 PM EDTGender IdentityNot on fileSexual OrientationNot on file documented as of this encounter Plan of Treatment DateTypeDepartmentCare Team (Latest Contact Info)Rsghxblzjmm80/22/2026 10:00 AM ESTProcedure Visit [facility] [address] [place] [address] Bassam Simpson, DPM [address] [facility] [address] [place] [address] 11/25/2025 2:15 PM ESTProcedure Visit [facility] [address] [place] [address] Neeta Smith, DPM [address] [place] [address] documented as of this encounter Visit Diagnoses Not on filedocumented in this encounter Care Teams Team MemberRelationshipSpecialtyStart DateEnd Date Everett Miner MD [address] [place] [address] PCP - GeneralFamily Medicine05/09/24documented as of this encounter
--- OUTSIDE RECORDS SUMMARY | 2025-08-29 12:39 | XMS_ITS | Encounter Summary ---
Author Organization [facility] Address [address] [place] [address] Care Team Providers Care Classics Teacher Name Role Phone Everett Miner MD Primary Care Provider [phone] Encounter Details DateTypeDepartmentCare Team (Latest Contact Info)Epqijudueeh64/12/2025Travel Social History Tobacco UseTypesPacks/DayYears UsedDateSmoking Tobacco: NeverPassive Smoke Exposure: NeverSmokeless Tobacco: NeverAlcohol UseStandard Drinks/WeekComments Not Currently0 (1 standard drink = 0.6 oz pure alcohol)Sex and Gender InformationValueDate RecordedSex Assigned at BirthNot on fileLegal SexMale 12/21/2022 10:13 PM EDTGender IdentityNot on fileSexual OrientationNot on file documented as of this encounter Plan of Treatment DateTypeDepartmentCare Team (Latest Contact Info)Eqszagodwyr82/22/2026 10:00 AM ESTProcedure Visit [facility] [address] [place] [address] Bassam Simpson, DPM [address] [facility] [address] [place] [address] 11/25/2025 2:15 PM ESTProcedure Visit [facility] [address] [place] [address] Neeta Smith, DPM [address] [place] [address] documented as of this encounter Visit Diagnoses Not on filedocumented in this encounter Care Teams Team MemberRelationshipSpecialtyStart DateEnd Date Everett Miner MD [address] [place] [address] PCP - GeneralFamily Medicine05/09/24documented as of this encounter
--- OUTSIDE RECORDS SUMMARY | 2025-08-29 12:39 | XMS_ITS | Encounter Summary ---
Author Organization [facility] Address [address] [place] [address] Care Team Providers Care Director Maternal Child Name Role Phone Everett Miner MD Primary Care Provider [phone] Encounter Details DateTypeDepartmentCare Team (Latest Contact Info)Obqldqsrklv28/12/2025Bamboo flowsheet [facility] [address] [place] [address] Neeta Smith DPM [address] [place] [address] Social History Tobacco UseTypesPacks/DayYears UsedDateSmoking Tobacco: NeverPassive Smoke Exposure: NeverSmokeless Tobacco: NeverAlcohol UseStandard Drinks/WeekComments Not Currently0 (1 standard drink = 0.6 oz pure alcohol)Sex and Gender InformationValueDate RecordedSex Assigned at BirthNot on fileLegal SexMale 12/21/2022 10:13 PM EDTGender IdentityNot on fileSexual OrientationNot on file documented as of this encounter Plan of Treatment DateTypeDepartmentCare Team (Latest Contact Info)Drrqkmxblnf72/22/2026 10:00 AM ESTProcedure Visit [facility] [address] [place] [address] Bassam Simpson DPM [address] [facility] [address] [place] [address] 11/25/2025 2:15 PM ESTProcedure Visit [facility] [address] [place] [address] Neeta Smith, DPSherrell [address] [facility] [address] [place] [address] documented as of this encounter Visit Diagnoses Not on filedocumented in this encounter Care Teams Team MemberRelationshipSpecialtyStart DateEnd Date Everett Miner MD [address] [place] [address] PCP - GeneralFamily Medicine05/09/24documented as of this encounter
--- OUTSIDE RECORDS SUMMARY | 2025-08-29 12:39 | XMS_ITS | Clinical Summary ---
Author Organization [facility] Address [address] [place] [address] Care Team Providers Care Category Director Name Role Phone Everett Miner MD Primary Care Provider [phone] Allergies Active AllergyReactionsCriticalityNoted SxdkEdkobdahZplwrizbuwFufkndw45/10/2023 XnbeqvqrpFtwstdj55/10/4348Pqbojdwmhrbavq66/24/2024 Other Reaction(s): Unknown Reaction SqrkbaggwfZjapjif03/01/0908ZokqodtkkikNxanqar41/10/2023IbuprofenUnknown 04/01/20249252AppvmmhseesRelecyo27/10/2023Metformin JkcZtailqt29/10/2023Naproxen Djmxkkg7205/18/20239349MhutdlJurwk51/15/5391SfsuihwwlTkzxekx24/01/2021ulindacUnknown 05/18/2023 Medications MedicationSigDispense QuantityRefillsLast FilledStart DateEnd DateStatus acarbose (Precose) 50 MG tablet Take 50 mg by mouth in the morning and 50 mg at noon and 50 mg in the evening. Take with meals.05/07/2023ctive buPROPion SR (Wellbutrin SR) 150 MG 12 hr tablet Take 150 mg by mouth in the morning.04/15/2023ctive losartan (Cozaar) 50 MG tablet Take 100 mg by mouth at pkmgrsf3103/12/2023ctive pioglitazone (Actos) 30 MG tablet Take 30 mg by mouth Daily05/09/2023ctive simvastatin (Zocor) 40 MG tablet Take 40 mg by mouth at qobdvyj9002/27/2023ctive Januvia 100 MG tablet Take 100 mg by mouth Daily02/27/2023ctive tiZANidine (Zanaflex) 4 MG tablet Take 4 mg by mouth at tynkodp2904/15/2023ctive venlafaxine (Effexor) 37.5 MG tablet Take 37.5 mg by mouth in the morning and 37.5 mg before bedtime.03/14/2023ctive nitroglycerin (Nitrostat) 0.4 MG SL tablet 09/20/2023ctive sodium bicarbonate 650 MG tablet Take 1,300 mg by mouth in the morning and 1,300 mg in the evening and 1,300 mg before bedtime.09/21/2023ctive triamcinolone (Kenalog) 0.1 % ointment Indications:Other specified dermatitisApply topically 2 (two) times a day as needed (Rash) Avoid face, armpits and groin. 60 g 11001/22/2024ctive Calcium Carb-Cholecalciferol 600-5 MG-MCG tablet Active buPROPion XL (Wellbutrin XL) 300 MG 24 hr tablet Take 300 mg by mouth Daily05/06/2024ctive venlafaxine (Effexor) 75 MG tablet 08/26/2024ctive aspirin 81 MG EC tablet Take 81 mg by mouth DailyActive Capsaicin-Cleansing Gel (Qutenza, 4 Patch,) 8 % patch Indications:Diabetes 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, unspecified whether halfway insulin use (HCC),NeuropathyApply 1 patch topically every 3 (three) months Follow instructions to prepare site. Prescriber to avinash area. Once applied, remove after 30 minutes and clean area with supplied gel. 1 patch 5Active Rezdiffra 100 MG tablet 5Active Active Problems ProblemNoted DateDiagnosed DateChronic ulcer of left foot with fat layer exposed 03/28/2025Diabetic ufqaooqewjszsp58/20/2025Peripheral venous insufficiency 03/28/2025Spontaneous rupture of other tendons, right upper arm03/28/2025Strain of muscle, fascia and tendon of triceps, right arm, initial kifuosvhf63/20/2025 Nonvoic9112/18/2024DOE (dyspnea on exertion)12/18/2024Pre-op ebhyxwfqmm33/12/2025 Right elbow pain12/18/2024enign hypertensive heart disease without congestive heart gajnlix9308/10/2024oncentric left ventricular wyvnmgifcqy76/02/2024urrent use of eufptvr0306/26/2024ietary counseling and uwdlipcxvpkp43/18/2024omplex regional pain syndrome type II of right lower limb04/03/2024lass 3 severe obesity with serious comorbidity and body mass index (BMI) of 40.0 to 44.9 in adult02/05/2024eripheral rjrxjnftme88/17/2023Type 2 diabetes sufgtamb60/17/2023 Coronary arteriosclerosis in [place] qbchqr5605/22/2019 Overview (05/09/2024): PTCI OF RCA X2 JANUARY 2013 LAD D1 50% CRIX X2 IN MARCH 2013 Sykujhnyqykken97/02/2013Essential zontukywrjgy29/02/2013Gastroesophageal reflux ugkghua2001/08/2013Chest pain01/08/2013Sleep apnea01/08/2013 Encounters DateTypeDepartmentCare WofwXqgcosnwxly82/19/2025Telephone [facility] [address] [place] [address] Neeta Smith DPM 08/21/2025 11:00 AM ESTOffice Visit ED [facility] [address] [place] [address] Bassam Simpson DPSherrell Foot ulcer, right, with fat layer exposed (HCC) (Primary Dx); Diabetes 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, 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); Venous insufficiency; 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); Chronic ulcer of left leg with fat layer exposed (HCC)08/21/20257454Rmofuv26/12/2025 2:45 PM ESTOffice Visit ED [facility] [address] [place] [address] Neeta Smith DPM Diabetes 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, 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) (Primary Dx); Neuropathy; Right foot pain08/20/2025amboo flowsheet [facility] [address] [place] [address] Neeta Smith, AUGUSTIN 08/20/20258658Zyxglq18/05/7446Dpaszf34/04/2025Telephone [facility] [address] [place] [address] Bassam Simpson DPM 08/11/2025bstract [facility] [address] [facility] [address] [place] [address] Bassam Simpson DPM 08/07/2025 10:00 AM EDTProcedure Visit [facility] [address] [facility] [address] [place] [address] Bassam Simpson DPM Chronic ulcer of left leg with fat layer exposed (HCC) (Primary Dx); Diabetes 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, unspecified whether halfway insulin use (HCC); Foot ulcer, right, with fat layer exposed (HCC); Venous insufficiency; 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)08/07/2025bstract [facility] [address] [facility] [address] [place] [address] Bassam Simpson DPM 08/07/2025amb flowsheet [facility] [address] [facility] [address] [place] [address] Bassam Simpson DPM 08/07/20251741Fbpvdv24/27/2025Telephone [facility] [address] [place] [address] Bassam Simpson DPM 08/01/2025bstract [facility] [address] [facility] [address] [place] [address] Bassam Simpson DPM 07/31/2025 1:10 PM EDTOffice Visit [facility] [address] [facility] [address] [place] [address] Bassam Simpson DPM Diabetes 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, 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) (Primary Dx); Foot ulcer, right, with fat layer exposed (HCC)07/31/2025bstract [facility] [address] [facility] [address] [place] [address] Bassam Simpson DPM 07/31/2025Telephone [facility] [address] [facility] [address] [place] [address] Bassam Simpson DPM Wjodurubu62/23/2025amboo flowsheet [facility] [address] [facility] [address] [place] [address] Bassam Simpson DPM 07/31/20259944Nmodfc31/16/2025 2:10 PM EDTOffice Visit [facility] [address] [facility] [address] [place] [address] Bassam Simpson DPM Osteomyelitis of ankle or foot, acute, right (HCC) (Primary Dx); Cellulitis of right foot; Diabetes 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, unspecified whether halfway insulin use (HCC); Foot ulcer, right, with fat layer exposed (HCC)07/24/2025bstract [facility] [address] [facility] [address] [place] [address] Bassam Simpson DPM 07/24/2025amboo flowsheet [facility] [address] [facility] [address] [place] [address] Bassam Simpson DPM 07/24/20258201Jkqwxy80/10/2025bstract [facility] [address] [place] [address] Bassam Simpson DPM 07/17/2025 2:00 PM EDTOffice Visit [facility] [address] [facility] [address] [place] [address] Bassam Simpson DPM Osteomyelitis of ankle or foot, acute, right (HCC) (Primary Dx); Cellulitis of right foot; Diabetes 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, unspecified whether halfway insulin use ([facility]); Venous wpambmosflzhj67/09/2025amboo flowsheet [facility] [address] [facility] [address] [place] [address] Bassam Simpson DPM 07/17/20256053Pwanpm31/08/0220Jktyuo80/06/2025bstract [facility] [address] [facility] [address] [place] [address] Bassam Simpson DPM 07/14/2025bstract [facility] [address] [place] [address] [place] [address] Bassam Simpson DPM 07/09/2025Telephone [facility] [address] [place] [address] Bassam Simpson DPM 07/08/2025 2:40 PM EDTOffice Visit [facility] [address] [place] [address] Bassam Simpson DPM Diabetes 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, 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 ([facility]) (Primary Dx); Cellulitis of right foot; Osteomyelitis of ankle or foot, acute, right (HCC)07/08/2025amboo flowsheet [facility] [address] [place] [address] Bassam Simpson DPSherrell 07/06/20251332Jsouzt85/26/2025bstract [facility] [address] [place] [address] Bassam Simpson DPM 07/04/2025bstract [facility] [address] [place] [address] Bassam Simpson DPM 07/03/2025External Result Encounter [facility] Unsolicited Bassam Simpson DPM 06/18/2025 9:30 AM EDTClinical Support [facility] [address] [place] [address] Cara Joshua CCC-A Asymmetrical sensorineural hearing loss (Primary Dx)06/18/2025amboo flowsheet [facility] [address] [place] [address] Cara Joshua CCC-A from Last 3 Months Family History Medical HistoryRelationNameCommentsDiabetesFatherAlbert BognerHypertensionFather Benjamin BognerStrokeFatherAlbert BognerHeart diseaseMotherEleanor Bogner HypertensionMotherEleanor BognerStrokeMotherEleanor BognerRelationNameStatus CommentsFatherAlbert BognerDeceasedMotherEleanor BognerDeceased Social History Tobacco UseTypesPacks/DayYears UsedDateSmoking Tobacco: NeverPassive Smoke Exposure: NeverSmokeless Tobacco: Never Tobacco Cessation:Counseling Given: Yes Alcohol UseStandard Drinks/WeekCommentsNot Currently0 (1 standard drink = 0.6 oz pure alcohol)Sex and Gender InformationValueDate RecordedSex Assigned at Not on fileLegal DjiKgfp5712/21/2022 10:13 PM EDTGender IdentityNot on fileSexual OrientationNot on file Last Filed Vital Signs Vital SignReadingTime TakenCommentsBlood Vxswrxqd546/7707 2:19 PM EDT Vrtuq4650 2:19 PM EDTTemperature--Respiratory Nizq477910/21/2024 11:09 AM ESTOxygen Byvpfmxtwa56%08/29/2024 9:27 AM ESTInhaled Oxygen Concentration-- Mlqwyr267 kg (276 lb)08/21/2025 11:09 AM FNOGertdn463.1 cm (5' 5 )08/21/2025 11:09 AM ESTBody Mass Index45.9308/21/2025 11:09 AM EST Plan of Treatment DateTypeDepartmentCare Team (Latest Contact Info)Nsuvwuqsnlb10/22/2026 10:00 AM ESTProcedure Visit [facility] [address] [place] [address] Bassam Simpson, DPM [address] [place] [address] 11/25/2025 2:15 PM ESTProcedure Visit [facility] [address] [place] [address] Neeta Smith, DPM [address] [place] [address] Health MaintenanceDue DateLast DoneCommentsPneumococcal Vaccine: 65+ Years (2 of 2 - PCV)COVID-19 Vaccine ( season)2025 08/01/2022, 05/12/2022, 08/19/2021, Additional history existsInfluenza Vaccine Mbfxefovs07/13/2025, 07/31/2024, 06/15/2023, Additional history exists Procedures Procedure NamePriorityDate/TimeAssociated DiagnosisCommentsXR FOOT 3+ VIEWS RIGHT07/03/2025 9:49 PM EDT from Last 3 Months Results * XR foot 3+ views right (07/03/2025 9:49 PM EDT)Anatomical RegionLaterality ModalityLower Extremities, FootRightRadiographic ImagingSpecimen (Source) Anatomical Location / LateralityCollection Method / VolumeCollection Time Received Time07/03/2025 9:49 PM EDT Impressions 07/03/2025 9:53 PM EDT Evidence of distal toe amputations. Slight increased lucency involving the distal second through fifth metatarsals noted unclear if this is due to hyperemia or underlying infectious inflammatory process.. ??No definite osseous erosions. ? Impression dictated by: Anup Kunz M.D. ??07/03/2025 9:51 PM ? Dictation Location: RADIO-PC-29 ? Transcribed By: ? PWS ?07/03/252150 ? Dictated By: ?Anup Kunz MD ?07/03/252148 ? Signed By: <Electronically signed by Anup Kunz MD in OV> ? 07/03/25 2151 Narrative 07/03/2025 9:53 PM EDT [facility] ?[facility] [place] ?[address] ? [place] [address] ?XRay Report ? Signed ? Patient: Dong Alcazar ?MR#: [id number] ?? [id number] ? : 1950 ?Acct:[id number] ? Age/Sex: 74 / M ?ADM Date: 07/03/25 ? Loc: 3T ?Room: ??1B6783-4 ?Type: ADM IN ?? Attending Dr: Neo Venegas MD ?? Copies to: Neo Venegas MD ?? Bassam Simpson DPM ? Ordering Provider: Bassam Simpson DPM ?? Date of Service: 07/03/25 ?? XR/XR foot RT min 3V*: right foot OM ? 3 views of the right foot ? INDICATION: Right foot osteomyelitis. ? FINDINGS: Amputation second digit. ??Amputation of the distal first digit and distal third digit noted. ??There is increased lucency involving the distal second through fifth metatarsals unclear if this is due to hyperemia. ??No definite bony erosions. ??There are opaque foreign body. ? XR/XR foot RT min 3V* ?? Procedure Note Radiology, Radiologist, - 07/03/2025 [facility] [place] [address] [place] [address] XRay Report Signed Patient: Dong Alcazar AMR#: [id number] : 9Acct:[id number] Age/Sex: 74 / MADM Date: 07/03/25 Loc: Room: 1O8465-8Ycut: ADM IN Attending Dr: Neo Venegas MD Copies to: MD Bassam Kwok DPM Ordering Provider: Bassam Simpson DPM Date of Service: 07/03/25 XR/XR foot RT min 3V*: right foot OM 3 views of the right foot INDICATION: Right foot osteomyelitis. FINDINGS: Amputation second digit. Amputation of the distal first digitand distal third digit noted. There is increased lucency involving the distal second throughfifth metatarsals unclear if this is due to hyperemia. No definite bony erosions. There are opaqueforeign body. XR/XR foot RT min 3V* IMPRESSION: Evidence of distal toe amputations. Slight increased lucency involvingthe distal second through fifth metatarsals noted unclear if this is due to hyperemiaor underlying infectious inflammatory process.. No definite osseous erosions. Impression dictated by: Anup Kunz M.D. 07/03/2025 9:51 PM Dictation Location: [place] [address] Transcribed By: [facility] 07/03/252150 Dictated By: Anup Kunz MD 07/03/252148 Signed By: <Electronically signed by Anup Kunz MD in OV> 09/25/25 2151 Authorizing ProviderResult TypeResult StatusNickeesha Simpson DPMIMG XR PROCEDURESFinal Result from Last 3 Months Insurance * Guarantor: Dong Alcazar AAccount TypeRelation to PatientDate of BirthPhone Billing AddressPersonal/UtxijwNiam1950 [id number] [address] Care Teams Team MemberRelationshipSpecialtyStart DateEnd Date Everett Miner MD [address] [place] [address] PCP - GeneralFamily Medicine05/09/24
--- OUTSIDE RECORDS SUMMARY | 2025-08-29 12:42 | XMS_ITS | CCD ---
Author Organization [facility] Care Team Providers Care Nurse Unit Manager Name Role Phone Claudioaminta Morgan Unavailable Aldo Middleton Unavailable Carito West Unavailable Terry Kelley Unavailable DR TERRY KELLEY Consulting Unavailable JOHNSON ., DR SCARLET [place] [facility] Unavailable ASCENCION, DR STEWART Attending Unavailable ASCENCION, DR STEWART Admitting Unavailable SU, DR MORGAN Miranda Consulting Unavailable JOHNSON ., DR SCARLET [place] [facility] Unavailable BASSAM AGUILAR Attending Unavailable BASSAM AGUILAR Admitting Unavailable BASSAM AGUILAR Consulting Unavailable ANDREW, DR BRITTNY Hemphill Consulting Unavailable JOHNSNO ., DR SCARLET [place] [facility] Unavailable [...] DR SCARLET [place] Admitting Unavailable DR ARACELI ROME Consulting Unavailable JOHNSON ., DR SCARLET [place] [...] Soni Unavailable MD Daniel Everett Attending Provider [phone] MD Scarlet Johnson Primary Care Provider MD Eligio Soni T Attending Provider MD Scarlet Johnson Primary Care Provider MD Daniel Everett Attending Provider [phone] Bubba SCHUSTER, Andrius Unavailable Everett Hickman Attending Unavailable Everett Hickman ESuzie Admitting Unavailable Everett Hickman MD Primary Care Provider Everett Hickman MD Primary Care Provider MORGAN TRINIDAD Attending Unavailable MARYLOU EVERETT E Primary Care Unavailable MIJATOVIC, DESIMIR Referring Unavailable MARYLOU EVERETT E Primary Care Unavailable MEKLAINEY SERRAY A Referring Unavailable MIJATOVIC, DESIMIR Attending Unavailable RUSLAN ARAUJO A Attending Unavailable FRANCOISE SINGLETARY Attending Unavailable MARYLOU, EVERETT E Primary Care Unavailable MIJATOVIC, DESIMIR Referring Unavailable MIJATOVIC, DESIMIR Attending Unavailable RUSLAN ARAUJO A Attending Unavailable RUSLAN ARAUJO A Admitting Unavailable MORGAN TRINIDAD Referring Unavailable ROSS, EVERETT E Primary Care Unavailable ISAURO HYDE Attending Unavailable Marylou Everett ESuzie Attending Unavailable Marylou Everett E. Admitting Unavailable Marylou Everett E. Attending Unavailable Marylou Everett E. Attending Unavailable ROSS, EVERETT Primary Care Unavailable BRITTNY JASMINE Referring Unava ilable BRITTNY JASMINE Attending Unava ilable Sarminzabrina, Tomi Talal Admitting Unavaila ble Sarmini, Tomi Garvinal Attending Unavaila ble Everett Hickman Admitting Unavailable Everett Hickman Attending Unavailable Sarmini, Krishna Talal Attending Unavaila ble Sarmini, Krishna Talal Attending Unavaila ble Everett Hickman Attending Unavailable Everett Hickman Attending Unavailable Everett Hickman Attending Unavailable KarlNanette veloz Attending Unavailable Sarmini, Krishna Talal Admitting Unavaila ble Sarmini, Krishna Talal Attending Unavaila ble Sarmini, Krishna Talal Referring Unavaila ble Giedraitis , Andrius Vytsandy Attending Unavailable Giedraitis , Andrius Vytautmariann Attending Unavailable Giedraitis , Andrius Vytautmariann Attending Unavailable Giedraitis , Andrius Vytautmariann Attending Unavailable Giedraitis , Andrius Vytautmariann Attending Unavailable Giedraitis , Andrius Missy Attending Unavailable Everett Hickman Referring Unavailable Everett Hickman Admitting Unavailable Everett Hickman Attending Unavailable Everett Hickman Attending Unavailable Everett Hickman Attending Unavailable Everett Hickman Attending Unavailable Deo Hickman Primary Care Provider Marce Bowen APRN Attending Provider Eligio Soni MD Attending Provider Deo Hickman Primary Care Provider Marce Bowen APRN Attending Provider Eligio Soni MD Attending Provider Aldo Middleton APRN Attending Provider Brian PhD, Kaia Unavailable Unavailab adin Kenmeghan PhD, Kaia Unavailable Unavailab le Nanette Barajas Attending Unavailable KarlNanette veloz Admitting Unavailable Kennebeck PhD, Kaia Unavailable Unavailab MARY Norwood Attending Unavailable MARY APARICIO Attending Unavailable MARY APARICIO Attending Unavailable ESSENCE LAM Attending Unavailable ESSENCE LAM Attending Unavailable TATA FISHER Attending Unavailable Marylou, Everett ESuzie Admitting Unavailable Ross, Everett ESuzie Attending Unavailable Karl, Nanette Hernandez Admitting Unavailable Tomi Maria Attending Unavaila ble Karl, Nanette Hernandez Attending Unavailable Marylou, Everett E. Admitting Unavailable Marylou, Everett ESuzie Attending Unavailable Mraylou Everett E. Referring Unavailable Deo Hickman Primary Care Provider Rubi SCHUSTER, Neo Admit Provider Rubi SCHUSTER, Neo Other Provider Silvia SCHUSTER, González Other Provider Calvin RUFFIN, Bassam Nur Other Provider Rox SCHUSTER, Tereso Stoner Other Provider Shiraz SEMI CONDUCTOR ASSEMBLER-C, Nat Hemphill Attending Provider Brian Srinivasan, Kaia Unavailable Unavailab le Karl, Nanette L Admitting Unavailable Karl, Nanette L Attending Unavailable Karl, Nanette L Attending Unavailable Karl, Nanette L Attending Unavailable Karl, Nanette L Attending Unavailable Karl, Nanette L Attending Unavailable Karl, Nanette L Attending Unavailable Karl, Nanette L Attending Unavailable Karl, Nanette L Attending Unavailable Karl, Nanette L Attending Unavailable Karl, Nanette L Attending Unavailable Marylou, Everett E. Admitting Unavailable Ross, Everett E. Attending Unavailable Araceli ROME Attending Unavailable Ross, Everett ESuzie Attending Unavailable Ross, Everett E. Attending Unavailable Ross, Everett E. Attending Unavailable Ross, Everett E. Attending Unavailable Marylou, Everett E. Attending Unavailable Ross, Everett E. Admitting Unavailable Ross, Everett E. Attending Unavailable Karl, Nanette L Attending Unavailable Karl, Nanette L Admitting Unavailable Karl, Nanette L Admitting Unavailable Karl, Nanette L Attending Unavailable Karl, Nanette L Attending Unavailable Eligio Soni Attending Unavailabl e Zachariah, Eligio Walden Admitting Unavailabl e Deo Hickman Primary Care Unavailable Deo Hickman H Primary Care Unavailable Marce Bowen Attending Unavailable Turovskaya, Marce Admitting Unavailable Seffo, Firas Attending Unavailable Secontreraso, Firas Admitting Unavailable Deo Hickman Primary Care Unavailable González Vega Consulting Unavailable Calvin, Bassam Nur Consulting Unavailable Tereso Gramajo Consulting Unavailable Araceli ROME Attending Unavailable Kennebeck PhD, Kaia Attending Unavailab le Kennebeck PhD, Kaia Unavailable Unavailab le CALVIN, BASSAM Nur Attending Unavailable CALVIN, BASSAM Nur Attending Unavailable BROWN, BASSAM Nur Attending Unavailable CATALINA, MORGAN Blank Attending Unavailable TIMMIS, DAVID H Referring Unavailable MARIA DEL ROSARIO, CARA Nur Attending Unavailable MATTHEW MAY Attending Unavailable EVERETT HICKMAN Referring Unavailable BROWN, BASSAM Nur Attending Unavailable CALVIN, BASSAM Nur Attending Unavailable MARIA DEL ROSARIO, CARA Nur Attending Unavailable BROWN, BASSAM Nur Attending Unavailable , GABRIELA H Attending Unavailable CATALINA, MORGAN Blank Attending Unavailable TIMMIS, DAVID H Referring Unavailable CATALINA, MORGAN Blank Attending Unavailable TIMMIS, DAVID H Referring Unavailable , GABRIELA Bell Attending Unavailable TIMMIS, DAVID H Attending Unavailable CATALINA, MORGAN Blank Attending Unavailable TIMMIS, DAVID H Referring Unavailable TIMMIS, DAVID H Attending Unavailable CALVIN, BASSAM Nur Attending Unavailable BROWN, BASSAM Nur Attending Unavailable CATALINA, MORGAN Blank Attending Unavailable TIMMIS, DAVID H Referring Unavailable Kennebeck PhD, Kaia Unavailable Unavailab le Allergies Allergy ClassificationReported Allergen(s)Allergy TypeDate of OnsetReaction(s) Facility (20 sources)Cefuroxime; Translations: [cefuroxime]Drug Gmemfac59-19-5182VxsbgfhA[facility] ([facility] sources)celecoxib; Translations: [CELECOXIB]Drug Obbxgsq78-73-3459Ioguaez, Unknown ReactionMansfield Hospital (20 sources)Diflunisal; Translations: [DIFLUNISAL]Drug Pvlpysl74-26-8501Ycwbfsu, Unknown ReactionMansfield Hospital (20 sources)dulaglutide; Translations: [DULAGLUTIDE]Drug Zxwwavz53-46-5979 Unknown, g/iFiHighland District Hospital (20 sources)IbuprofenDrug AllergyUnknowCox [facility] Other (20 sources)liraglutide; Translations: [LIRAGLUTIDE]Drug Pwqnatr19-14-6404 stomach [facility] (20 sources)metFORMIN; Translations: [metFORMIN]Drug Nheidti20-91-3386naevwuo [facility] (20 sources)Naproxen; Translations: [NAPROXEN]Drug Vrsxyho71-02-0794FqokgpiAultman Alliance Community Hospital (20 sources)Sulindac; Translations: [Clinoril]Drug Yvpesrz37-32-2074FgcehtvClp [facility] (1 source)CefuroximeDrug Dnpvriq76-58-7401ObaK[facility] (10 sources)celecoxib; Translations: [CeleBREX]Drug Hyhqbvp31-78-5250UizKet[facility] (10 sources)liraglutide; Translations: [Victoza]Drug AllergyKettering Health [facility] (1 source)metFORMINDrug Zpzfmbl99-61-8676LsmKet[facility] (10 sources)Naproxen; Translations: [Naprosyn]Drug Mvykxfz65-81-6338IxoKettering [facility] (3 sources)NSAIDs; Translations: [NSAIDS (NON-STEROIDAL ANTI-INFLAMMATORY DRUG)] Drug allergy (disorder)48-18-7582GhuKettering [facility] (10 sources)Povidone-Iodine; Translations: [Dolobid]Drug Zbwjjvx43-06-8548YktKettering Health [facility] (20 sources)Cephalosporins (Antibiotic); Translations: [cephalosporins] Propensity to adverse -25-0153HpggqzsReg[facility] Hospital [facility] (20 sources)Ibuprofen; Translations: [ibuprofen]Drug Feseopp60-54-6977PvowhhwAultman Alliance Community Hospital (20 sources)Sulindac; Translations: [SULINDAC]Drug Jgdntmz93-24-5401DtsigsoAultman Alliance Community Hospital (12 sources)Non-steroidal anti-inflammatory agentDrug Ipfzqjtftvi85-40-5102GZBarney Children's Medical Center (20 sources)celecoxibDrug Zmvsnie96-37-0884HfksfkmGLBB Healthcare (20 sources)DiflunisalDrug Isbrhts54-60-8194FneskmiVMKO Healthcare (20 sources)dulaglutideDrug Tzymkdu00-28-6524TutvtlnZVQI Healthcare (20 sources)liraglutideDrug Pkkbnws45-35-5544FrlrmwmIGOZ Healthcare (20 sources)metFORMINDrug Sfwzrbf05-10-8454CycobjsZIPM [facility] (20 sources)rofecoxib; Translations: [ROFECOXIB]Drug Hqitocj69-71-2796Epugfyg [facility] (20 sources)Non-steroidal anti-inflammatory agent; Translations: [NSAIDs]Drug Vkqrkci60-16-6541YrxvdXGCL Healthcare (9 sources)Cefuroxime; Translations: [Cefuroxime Axetil]Drug AllergySelect [facility] [place] [facility] (9 sources)dulaglutide; Translations: [Trulicity]Drug AllergySelect [facility] [place] [facility] (9 sources)Niacin; Translations: [niacin]Drug AllergySelect [facility] [place] [facility] (9 sources)rofecoxib; Translations: [Vioxx]Drug AllergySelect [facility] [place] [facility] (1 source)CefuroximeDrug Jfosuuo19-97-9389SxlcrtmhyMansfield Hospital Repository (1 source)celecoxibDrug Ujulhuo28-62-0241KbdcrlmfvMansfield Hospital Repository (1 source)DiflunisalDrug Rnjgest48-06-9051DrrlvyzslMansfield Hospital Repository (1 source)dulaglutideDrug Wusfcvi71-85-5688KombdyiovMansfield Hospital Repository (1 source)liraglutideDrug Hngwokx06-17-0946XqsqlrxqjMansfield Hospital Repository (1 source)metFORMINDrug Qeicmnv83-32-5906IeqacsbtaMansfield Hospital Repository (1 source)NaproxenDrug Whfylls97-08-9114IkvnpdzndMansfield Hospital Repository Medications Current Medications MedicationDrug Class(es)DatesSig (Normalized)Sig (Original)acarbose 50 mg oral tablet (20 sources)alpha-Glucosidase InhibitorStart: 58-31-4918nqmmgchz (Precose) 50 MG tablet Take 50 mg by mouth in the morning and 50 mg at noon and 50 mg in the evening. Take with meals. 05/07/2023 ActiveStart: 05-29-2018 End: 41-79-0042Pvimlxfv 25 mg tablet Discontinued May 29, 2018 12:00am December 11, 2023 12:22pmStart: 02-68-0905Piwphxtn Active TABLET May 28, 2018 11:00pmtake 1 tablet by mouth three times dailyAcarbose 25 mg 1 Tablet Oral tid Activeacetaminophen 300 mg / codeine phosphate 30 mg oral tablet (20 sources)Opioid AgonistStart: 05-25-2024 End: 21-82-4227dgalbkeasnbmi-codeine (Tylenol w/ Codeine #3) 300-30 MG tablet 05/25/2024 03/31/2025 Discontinued (Therapy completed)aspirin 81 mg chewable tablet (20 sources)Platelet Aggregation Inhibitor, Nonsteroidal Anti-inflammatory Drug Start: 39-04-8359ecaa 1 tablet by mouth once dailyAspirin 81 mg tablet,chewable Active 81 MG PO Daily December 11, 2023 1:00am Complies with drug therapytake 1 tablet by mouth once dailyaspirin 81 MG EC tablet Take 81 mg by mouth Daily Activetake 1 tablet by mouth every twenty-four hoursAspirin 81 MG 1 Tablet Orally Daily Activeatorvastatin 10 mg oral tablet (1 source)HMG-CoA Reductase InhibitorStart: 84-54-7520hlvc 1 tablet by mouth once daily at hr buPROPion hydrochloride 300 mg extended release oral tablet (20 sources)AminoketoneStart: 97-13-0117tjgs 1 tablet by mouth once daily buPROPion XL (Wellbutrin XL) 300 MG 24 hr tablet Take 300 mg by mouth Daily 05/06/2024 ActiveStart: 04-01-2024 End: 29-81-4981molg 1 tablet by mouth once dailyBupropion Hcl 150 mg tablet sustained-release 12 hr Discontinued 300 MG PO Daily April 01, 2024 11:32am March 26, 2025 1:17pmStart: 59-04-0827xxDJWJncl XL (WELLBUTRIN XL) 300 mg 24 hr tablet 02/05/2024 ActiveStart: 12-11-2023 End: 84-29-2586nqlk 1 tablet by mouth once dailyBupropion Hcl 150 mg tablet sustained-release 12 hr Discontinued 150 MG PO Daily December 11, 2023 1:00am April 01, 2024 11:33amStart: 05-29-2018 End: 21-60-1769ibgx 1 tablet by mouth every twelve hours in the morningbuPROPion SR (Wellbutrin SR) 150 MG 12 hr tablet Take 150 mg by mouth in the morning. 04/15/2023 ActiveStart: 61-28-5042Pdjwaesrq Hcl Active May 28, 2018 11:00pm busPIRone hydrochloride 10 mg oral tablet (1 source)Start: 17-02-3830eakj 1 tablet by mouth three times dailyBuspirone 10 mg tablet Active 10 MG PO Three times daily July 03, 2025 12:00am Complies withdrug therapyCalcium + D3 600-200 MG-UNIT (20 sources)take 1 tablet by mouth once dailyCalcium + D3 600-200 MG-UNIT 1 tablet with a meal Orally Once a day Activecalcium carbonate 1500 mg / cholecalciferol 200 unt oral tablet (20 sources)Vitamin DCalcium Carb-Cholecalciferol 600-5 MG-MCG tablet Active calcium carbonate 600 mg-cholecalciferol 200 units 600 mg-5 mcg (200 unit) tab Calcium 600 ActiveCalcium Carbonate / vitamin D3 (7 sources)Start: 48-18-2546ohpr 1 tablet by mouth once dailycalcium carbonate- vitamin D3 (Calcium 600 with Vitamin D3) Active 1 TAB PO Daily March 20, 2024 12:00am Complies with drug therapyStart: 61-15-0478xuqi 1 tablet by mouth once dailycalcium carbonate-vitamin D3 (Calcium 600 with Vitamin D3) Active 1 TAB PO Daily March 20, 2024 12:00amcapsaicin 0.08 mg/mg medicated patch (20 sources)Start: 95-07-2062Entilbskf-Cleansing Gel (Qutenza, 4 Patch,) 8 % patch Indications: Diabetes 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, 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 Prescriber to avinash area. Once applied, remove after 30 minutes and clean area with supplied gel. 1 patch 3 05/19/2025 Activecarvedilol 6.25 mg oral tablet (2 sources)alpha-Adrenergic Nathaly, beta-Adrenergic BlockerStart: 03-26-2025 take 2 tablets by mouth twice dailyCarvedilol 6.25 mg tablet Active 12.5 MG PO Twice daily March 26, 2025 12:00am Complies with drug therapyStart: 03-26-2025 take 1 tablet by mouth twice dailyCarvedilol 6.25 mg tablet Active 6.25 MG PO Twice daily March 26, 2025 12:00am Complies with drug therapycephalexin 500 mg oral capsule (2 sources)Cephalosporin AntibacterialStart: 07-09-2025 End: 19-57-3183scbv 1 capsule by mouth in the morning, then take 1 capsule by mouth in the evening, then take 1 capsule by mouth at bedtime, then take 1 capsule by mouth three times dailycephalexin (Keflex) 500 MG capsule Indications: Cellulitis of right foot Take 1 capsule (500 mg) bymouth in the morning and 1 capsule (500 mg) in the evening and 1 capsule (500 mg) before bedtime. Do all this for 10 days. Take one tablet by mouth three times daily. 30 capsule 07/09/2025 5ActiveStart: 07-03-2025 End: 23-44-8393hilp 1 capsule by mouth four times dailyCephalexin 500 mg capsule Discontinued 500 MG PO Four times daily July 03, 2025 12:00am July 05, 2025 1:07pmclindamycin 300 mg oral capsule (20 sources)Lincosamide AntibacterialStart: 05-22-2024 End: 53-02-5645ryaz 1 capsule by mouth in the morningclindamycin (Cleocin) 300 MG capsule Take 300 mg by mouth in the morning and 300 mg before bedtime. 05/22/2024 03/31/2025 Discontinued (Therapy completed)Docosahexaenoate (12 sources)take 1200 mg by mouth twice dailyDOCOSAHEXAENOIC ACID ORAL Fish Oil 1200mg BID Activetake 1200 mg by mouth twice dailyDOCOSAHEXAENOIC ACID ORAL Fish Oil 1200mg BID 0 Activedoxycycline hyclate 100 mg oral capsule (1 source)Tetracycline-class DrugStart: 33-11-8798unsw 1 capsule by mouth twice dailyfish oil/borage/flax/om3,6,9 1 (FISH,BORA,FLAX OILS-OM3,6,9NO1 ORAL) (12 sources)fish oil/borage/flax/om3,6,9 1 (FISH,BORA,FLAX OILS-OM3,6,9NO1 ORAL) Take by mouth every 24 hours. Activefish oil/borage/flax/om3,6,9 1 (FISH,BORA,FLAX OILS-OM3,6,9NO1 ORAL) Take by mouth every 24 hours. 0 ActiveFish Oils (20 sources)take 1 capsule by mouth once dailyFish Oil 1200 MG 1 capsule Orally daily Activefurosemide 40 mg oral tablet (1 source)Loop DiureticStart: 01-58-9393julq 1 tablet by mouth once daily in the morningFurosemide 40 mg tablet Active 40 MG PO Every morning July 03, 2025 12:00am Complies with drug therapygabapentin 600 mg oral tablet (3 sources)Anti-epileptic AgentGabapentin 600 MG Oral for 30 Days ActiveInsulin Aspart U-100 (Novolog Flexpen U-100 Insulin) 100 unit/mL (3 mL) insulin pen (5 sources)Start: 41-79-7691Etrrkuw Aspart U-100 (Novolog Flexpen U-100 Insulin) 100 unit/mL (3 mL) insulin pen Active 0 SUBCUT.COMPLEX December 11, 2023 1:00am 1:50 corrective scale ac tid Subcutaneous As Directed;3 ml insulin aspart, human 100 unt/ml pen injector (7 sources)Insulin AnalogStart: 55-78-4121WtxdSNE FlexPen 100 UNIT/ML 1:50 corrective scale ac tid Subcutaneous As Directed Active3 ml insulin lispro 100 unt/ml pen injector (1 source)Insulin AnalogStart: 15-89-3358YaqxFBU KwikPen 100 UNIT/ML 1:50 corrective scale ac tid Subcutaneous as directed for 30 days (expect up to 20 units/day) May, Activelidocaine 25 mg/ml / prilocaine 25 mg/ml topical cream (2 sources)Antiarrhythmic, Amide Local AnestheticStart: 14-65-0543Uwozyhjyp- Prilocaine 2.5-2.5 % cream Active 2.5 GM TOPICAL Four times daily as needed for pain 2024 12:00am Complies with drug therapyLORazepam 0.5 mg oral tablet (20 sources)BenzodiazepineStart: 07-10-2024 End: 47-31-2415uubl 1 tablet by mouth every hourLORazepam (Ativan) 0.5 MG tablet Indications: Internal derangement of left shoulder Take 1 tablet (0.5 mg) by mouth See administration instructions for 1 dose 1 tablet by mouth 1 hour prior to MRI, must have someone drive you to the appt and home from the appt 1 tablet 07/10/2024 03/31/2025 Discontinued (Therapy completed)losartan potassium 50 mg oral tablet (20 sources)Angiotensin 2 Receptor BlockerStart: 05-84-2241albp 1.5 tablets by mouth oncelosartan (COZAAR) 50 mg tablet Take 1.5 tablets by mouth every afternoon. 02/01/2024 ActiveStart: 03-85-7762Tuawnzsw 50 mg tablet Active 75 MG PO Daily December 11, 2023 1:00am Complies with drug therapyStart: 70-93-0377vroy 2 tablets by mouth at bedtimelosartan (Cozaar) 50 MG tablet Take 100 mg by mouth at bedtime 03/12/2023 ActiveStart: 37-07-4488xffn 1 tablet by mouth at bedtime losartan (Cozaar) 50 MG tablet Take 50 mg by mouth at bedtime. 03/12/2023 Active take 1.5 mg by mouth once dailyLosartan Potassium 50 MG 1.5 mg Orally Once a day Activetake 1 tablet by mouth every twenty-four hoursLosartan Potassium 50 MG 1 tablet Orally Once a day ActiveLosartan Potassium Activememantine hydrochloride 10 mg oral tablet (20 sources)W-lfegsz-Z-aspartate Receptor AntagonistStart: 05-31-2024 End: 56-89-1093qqje 1 tablet by mouth once dailymemantine (Namenda) 10 MG tablet Take 10 mg by mouth Daily 05/31/2024 03/31/2025 Discontinued (Therapy completed)Start: 04-24-2024 End: 16-72-2613rauv 1 tablet by mouth once dailymemantine (NAMENDA) 5 mg tablet Take 1 tablet by mouth once daily. 30 tablet 3 04/24/2024 Gbarpv58 hr metoprolol succinate 50 mg extended release oral tablet (20 sources)beta-Adrenergic BlockerStart: 12-26-2023 End: 66-07-8220qaxa 1 tablet by mouth every twenty-four hours in the morning metoprolol succinate XL (Toprol-XL) 50 MG 24 hr tablet Take 50 mg by mouth in the morning and 50 mgbefore bedtime. 12/26/2023 03/31/2025 Discontinued (Therapy completed)Start: 36-55-7331vlsw 1 tablet by mouth every twelve hoursmetoprolol succinate ER (TOPROL XL) 50 mg 24 hr tablet Take 1 tablet by mouth every 12 hours. 12/26/2023 ActiveStart: 05-29-2018 End: 37-52-9856nezb 1 tablet by mouth twice dailyMetoprolol Tartrate 50 mg tablet Discontinued 50 MG PO Twice daily December 11, 2023 1:00am 2024 4:20pmStart: 05-29-2018 End: 96-87-9382Ppwxccojfo Tartrate 50 mg tablet Discontinued May 29, 2018 12:00am December 11, 2023 12:22pmtake 1 tablet by mouth every twenty-four hours Metoprolol Tartrate 100 MG 1 tablet with food Orally Daily Activetake 1 tablet by mouth every twenty-four hoursMetoprolol Tartrate 50 MG 1 Tablet Orally Daily ActiveNitro Sublingual 0.4 (20 sources)Nitro Sublingual 0.4 Sublingual As Directed ActiveOmega 4-Dzr-Aie-Fish Oil (Fish Oil) 1,000 mg (120 mg-180 mg) Capsule (9 sources)Start: 60-93-6228xnjy 1 capsule by mouth once dailyOmega 8-Yki-Zdb-Fish Oil (Fish Oil) 1,000 mg (120 mg-180 mg) Capsule Active 1 CAP PO Daily May 29, 2018 12:00am Complies with drug therapyStart: 69-84-8975Giuwp 9-Mlk-Hor-Fish Oil (Fish Oil) 1,000 mg (120 mg-180 mg) Capsule Active May 29, 2018 12:00am Complies with drug therapyStart: 67-98-7576Kwxzq 7-Vgb-Plg-Fish Oil (Fish Oil) 1,000 mg (120 mg-180 mg) Capsule Active May 29, 2018 12:00amStart: 03-88-3090Mytov 5-Hke-Iok-Fish Oil (Fish Oil) 1,000 mg (120 mg-180 mg) Capsule Active May 28, 2018 11:00pmoxyCODONE hydrochloride 5 mg oral tablet (1 source)Opioid AgonistStart: 27-25-6757ejkt 1 tablet by mouth every six hours as needed for painpioglitazone 30 mg oral tablet (20 sources)Peroxisome Proliferator Receptor alpha Agonist, Peroxisome Proliferator Receptor gamma Agonist, ThiazolidinedioneStart: 06-03-2024 End: 20-22-5131cssw 1 tablet by mouth once dailyPioglitazone 30 mg tablet Active 0 .ROUTE .COMPLEX 90 March 26, 2025 1:24pm TAKE 1 TABLET BY MOUTHEVERY DAY FOR 90 DAYS Complies with drug therapyStart: 05-09-2023 End: 68-00-4432irpt 1 tablet by mouth once dailypioglitazone (Actos) 30 MG tablet Take 30 mg by mouth Daily 05/09/2023 Activetake 2 tablets by mouth every twenty-four hoursPioglitazone HCl 15 MG 2 tablets Orally Once a day for 90 days Activetake 1 tablet by mouth every twenty-four hoursPioglitazone HCl 15 MG 1 tablet Orally Once a day for 90 day(s) Activepregabalin 75 mg oral capsule (20 sources)Start: 08-01-2024 End: 88-15-5723duhr 1 capsule by mouth in the morningpregabalin (Lyrica) 75 MG capsule Take 75 mg by mouth in the morning and 75 mg before bedtime. 08/01/2024 03/31/2025 Discontinued (Therapy completed)Start: 83-24-9900Zkejjznhxc 100 MG 1 capsule Orally bid Q 10 DAYS Nov, ActiveQUEtiapine 50 mg oral tablet (1 source)Atypical AntipsychoticStart: 94-56-5783kema 1 tablet by mouth once daily at bedtimeQuetiapine 50 mg tablet Active 50 MG PO Daily at bedtime July 03, 2025 12:00am Complies withdrug therapyResmetirom (1 source)Start: 61-68-3186raun 1 tablet by mouth once dailyResmetirom (Rezdiffra) 100 mg tablet Active 100 MG PO Daily July 03, 2025 12:00am Complies with drug therapyRezdiffra 100 MG tablet (20 sources)Start: 11-91-9775Fmeloyrwa 100 MG tablet 05/05/2025 Active simvastatin 20 mg oral tablet (20 sources)HMG-CoA Reductase InhibitorStart: 21-55-9418zhih 1 tablet by mouth at bedtimeSimvastatin 20 mg tablet Active 20 MG PO Bedtime July 03, 2025 12:00am Complies with drug therapyStart: 39-88-3272emct 1 tablet by mouth at bedtimesimvastatin (Zocor) 40 MG tablet Take 40 mg by mouth at bedtime 02/27/2023 ActiveSITagliptin 100 mg oral tablet (20 sources)Dipeptidyl Peptidase 4 InhibitorStart: 02-27-2023 End: 37-70-0319sptz 1 tablet by mouth once dailyJanuvia 100 MG tablet Take 100 mg by mouth Daily 02/27/2023 ActiveStart: 05-29-2018 End: 78-88-0565Isihvfowywo Phosphate (Januvia) 25 mg Tablet Discontinued May 29, 2018 12:00am December 102:23pmStart: 05-29-2018 End: 69-06-0428Hynhkempzgm Phosphate (Januvia) 25 mg Tablet Discontinued TABLET May 29, 2018 12:00am December 11, 2023 12:23pmtake 0.5 tablet by mouth once dailyJanuvia 100 MG 1/2 tablet Orally Once a day Activesodium bicarb 650 mg (20 sources)take 2 tablets by mouth three times dailysodium bicarb 650 mg 2 tablets orally tid Activesodium bicarbonate 650 mg oral tablet (20 sources)Start: 87-98-2063bcfr 2 tablets by mouth in the morning, then take 2 tablets by mouth in the evening, then take 2 tablets by mouth at bedtimesodium bicarbonate 650 MG tablet Take 1,300 mg by mouth in the morning and 1,300 mg in the evening and 1,300 mg before bedtime. 09/21/2023 ActiveStart: 05-29-2018 End: 27-42-3335Xigkks Bicarbonate 650 mg tablet Discontinued May 29, 2018 12:00am December 11, 2023 12:24pmStart: 05-29-2018 End: 58-31-0866Mcyaof Bicarbonate 650 mg tablet Discontinued TABLET May 29, 2018 12:00am December 11, 2023 12:24pmtraMADol hydrochloride 50 mg oral tablet (20 sources)Opioid AgonistStart: 06-19-2024 End: 27-83-8138vzxm 1 tablet by mouth every six hours for paintraMADol (Ultram) 50 MG tablet Indications: Pain Take 1 tablet (50 mg) by mouth every 6 (six) hoursif needed for severe pain or moderate pain 20 tablet 06/19/2024 03/31/2025 Discontinued (Therapy completed)Start: 05-29-2018 End: 63-15-1181Ntyfnncc 50 mg tablet Discontinued May 29, 2018 12:00am December 11, 2023 12:24pmStart: 05-29-2018 End: 17-03-7688Rtbnuijr 50 mg tablet Discontinued TABLET May 29, 2018 12:00am December 11, 2023 12:24pmtriamcinolone acetonide 0.001 mg/mg topical ointment (20 sources)CorticosteroidStart: 99-16-9962ondsofdhwfvxq (Kenalog) 0.1 % ointment Indications: Other specified dermatitis Apply topically 2 (two) times a day as needed (Rash) Avoid face, armpits and groin. 60 g 11 01/22/2024 Active venlafaxine 75 mg oral tablet (20 sources)Serotonin and Norepinephrine Reuptake InhibitorStart: 08-26-2024 venlafaxine (Effexor) 75 MG tablet 08/26/2024 ActiveStart: 56-66-1417niov 2 tablets by mouth twice dailyVenlafaxine 37.5 mg tablet Active 75 MG PO Twice daily December 11, 2023 1:00am Complies with drug therapyStart: 05-29-2018 End: 46-44-2381byxz 1 tablet by mouth in the morningvenlafaxine (Effexor) 37.5 MG tablet Take 37.5 mg by mouth in the morning and 37.5 mg before bedtime. 03/14/2023 ActiveStart: 05-29-2018 End: 78-79-5683Voxxbljisgd 37.5 mg tablet Discontinued May 29, 2018 12:00am December 11, 2023 12:24pmStart: 05-29-2018 End: 24-77-7170nsvj 1 tablet by mouth in the morningvenlafaxine (Effexor) 37.5 MG tablet Take 37.5 mg by mouth in the morning and 37.5 mg before bedtime. 03/14/2023 Active Completed/Discontinued Medications MedicationDrug Class(es)DatesSig (Normalized)Sig (Original)acetaminophen 325 mg / HYDROcodone bitartrate 5 mg oral tablet (9 sources)Opioid AgonistStart: 06-07-2018 End: 97-22-8697agrb 1 tablet by mouth every four to six hours as needed for pain Hydrocodone-Acetaminophen 5-325 mg tablet Discontinued 1 TAB PO EVERY 4-6 HOURS as needed for pain June 07, 2018 April 01, 2024 2:54pmALPRAZolam 0.5 mg oral tablet (7 sources)BenzodiazepineStart: 03-13-2025 End: 40-24-9339gmvz 1 tablet by mouth onceAlprazolam (Xanax) 0.5 mg tablet Discontinued 0.5 MG PO Once 1 1 March 13, 2025 12:00am March 26, 2025 1:10pm Calcium + D 315-200 MG-UNIT (7 sources)take 1 tablet by mouth once dailyCalcium + D 315-200 MG-UNIT 1 tablet Orally once a day Not-Takingtake 1 tablet by mouth once dailyCalcium + D 315- 200 MG-UNIT 1 tablet Orally once a day Activecanagliflozin 100 mg oral tablet (9 sources)Sodium-Glucose Cotransporter 2 InhibitorStart: 05-29-2018 End: 81-00-6988Otvkyrfajyxct (Invokana) 100 mg tablet Discontinued May 29, 2018 12:00am December 11, 2023 12:22pmciprofloxacin 500 mg oral tablet (9 sources)Quinolone AntimicrobialStart: 06-07-2018 End: 55-17-2409drgv 1 tablet by mouth every two hoursCiprofloxacin Hcl (Cipro) 500 mg tablet Discontinued 500 MG PO Q12H June 07, 2018 12:00am March 20, 2024 1:47pm administer dose at least 2 hrs before/6 hrs after dairy products, calcium, zinc, and/or iron-containing productsFreeStyle Yudith Alpine - (7 sources)FreeStyle Yudith Alpine - use with yudith sensor SQ daily for 365 days has but not using Not-TakingFreeStyle Yudith Sensor System - (7 sources)FreeStyle Yudith Sensor System - use with yudith reader SQ change every 10 days for 90 days has but not usint Not-Taking1 ml methylPREDNISolone acetate 40 mg/ml injection (4 sources)CorticosteroidStart: 06-12-2024 End: 20-57-1807qrtsnnQKYVJLQexgyj acetate (DEPO-Medrol) injection 40 mgStart: 06-12-2024 End: 20-86-156699 mg, Intra-articular, Once PRN Procedure, Starting on Mon06/12/24 at 0939, For 1 dosenitroglycerin 0.4 mg sublingual tablet (20 sources)Nitrate VasodilatorStart: 12-11-2023 End: 50-74-9185Kqswzeoxkavkg 0.4 mg tablet, sublingual Discontinued 0.4 MG SUBLINGUAL as needed December 11, 2023 1:00am July 03, 2025 4:20pmStart: 76-50-3458yyfrdawjkyrvm (Nitrostat) 0.4 MG SL tablet 09/20/2023 Activeoxybutynin chloride 5 mg oral tablet (9 sources)Cholinergic Muscarinic AntagonistStart: 06-07-2018 End: 46-30-2060hbrg 1 tablet by mouth twice daily as needed for muscle spasms Oxybutynin Chloride 5 mg tablet Discontinued 5 MG PO Twice daily as needed for bladder spasms 60 June 07, 2018 12:00am April 01, 2024 2:54pmtiZANidine 4 mg oral capsule (20 sources)Central alpha-2 Adrenergic AgonistStart: 04-01-2024 End: 03-83-6348avqs 1 capsule by mouth twice daily as neededTizanidine 4 mg capsule Discontinued 4 MG PO Twice daily as needed April 01, 2024 12:00am March 13, 2025 1:22pmStart: 33-52-1122dyhl 1 capsule by mouth every six hours as neededTizanidine 4 mg capsule Active 4 MG PO Every 6 hours as needed for muscle spasticity March 20, 2024 1:48pm Complies with drug therapyStart: 12-11-2023 End: 18-55-3959uegw 1 capsule by mouth once dailyTizanidine 4 mg capsule Discontinued 4 MG PO Daily December 11, 2023 1:00am March 20, 2024 1:50pmStart: 80-95-4242qdln 1 tablet by mouth at bedtimetiZANidine (Zanaflex) 4 MG tablet Take 4 mg by mouth at bedtime 04/15/2023 Activetake 1 tablet by mouth once daily tiZANidine HCl 4 MG 1 tab Orally daily ActivetiZANidine HCl Active Problems Active Problems Problem ClassificationProblemDateDocumented DateEpisodic/ChronicAcquired foot deformities (13 sources)Acquired deformity of toe of right foot; Translations: [Acquired deformities of toe(s), unspecified, right foot]36-75-8143KphbjxfoVeujqycbeg disorders (3 sources)Adjustment disorder with depressed mood; Translations: [Adjustment disorder with depressed mood]93-39-4575AyqkvehZjaswuxc reactions (1 source)Eczema of lower limb; Translations: [Dermatitis, unspecified] 05-43-4032PqwajnkhYycbngj disorders (20 sources)Claustrophobia; Translations: [Claustrophobia]Onset: 12-18-2024 16-32-6778FlecpssRewgucw disorders (13 sources)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 condition; Translations: [Anxiety disorder due to knownphysiological condition]Onset: 81-75-2443Ywnfvdiv Chronic ulcer of skin (20 sources)Non-pressure chronic ulcer of other part of right lower leg with fat layer exposed; Translations: [Ulcer of other part of lower limb]Onset: 039407-80-5407HbqyskyXsvycwvvrn associated with dizziness or vertigo (2 sources)Cochlear hydrops of right inner ear; Translations: [Meniere's disease, right ear]20-02-8411GcpbsjnOfolmyvwch heart failure; nonhypertensive (1 source)Unspecified systolic (congestive) heart failure; Translations: [UNSPECIFIED SYSTOLIC HEART FAILURE]Onset: 69-47-6155BbqgxvvYlbncwms atherosclerosis and other heart disease (20 sources)Coronary arteriosclerosis; Translations: [Atherosclerotic heart disease of [place] coronary artery without angina pectoris]Onset: 05-22-2019 ChronicDiabetes mellitus with complications (20 sources)Hyperglycemia due to type 2 diabetes mellitus; Translations: [Type 2 diabetes mellitus with hyperglycemia]Onset: 10-21-2021 Resolved: 05-33-9120XtsdzotCftezwxq mellitus without complication (20 sources)Type 2 diabetes mellitus; Translations: [Type 2 diabetes mellitus without complications]Onset: 113321-94-4875UboxjeaEilckscxb of lipid metabolism (20 sources)Hyperlipidemia; Translations: [Hyperlipidemia, unspecified]Onset: 01-08-2013 Resolved: 84-81-7900MhlpgxkL Codes: Natural/environment (1 source)Exposure to other specified factors, initial encounter; Translations: [EXPOSURE OTHER SPEC FACTORS INITIAL]Onset: 53-59-1752MocbpbtkYawfxjbkuf disorders (20 sources)Gastroesophageal reflux disease; Translations: [Gastro-esophageal reflux disease without esophagitis]Onset: 629312-44-3947HyluxqxCgznoegzs hypertension (20 sources)Essential hypertension; Translations: [Essential (primary) hypertension]Onset: 01-08-2013 Resolved: 44-12-2416RmcajhcIjnjyenxnhnpb symptoms and ill-defined conditions (8 sources)Proteinuria, unspecifiedOnset: 04-21-2022 Resolved: 34-55-0181DcapmlawUmlzctowe (20 sources)Nonalcoholic steatohepatitis; Translations: [Nonalcoholic steatohepatitis ([place])]Onset: 07-21-2021 Resolved: 12-35-9097RkrkmpzBtnlvrqwyhun with complications and secondary hypertension (20 sources)Benign hypertensive 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; Translations: [Hypertensive heart disease without heart failure]Onset: 825629-39-5095PqdojrlCasgsgndg arthritis and osteomyelitis (except that caused by tuberculosis or sexually transmitted disease) (9 sources)Acute osteomyelitis of ankle and/or foot; Translations: [Acute hematogenous osteomyelitis, right ankle and foot]Onset: ChronicMycoses (5 sources)Pain in toe; Translations: [Tinea unguium]81-68-2198Iepooita Nutritional deficiencies (20 sources)Vitamin D deficiency; Translations: [Vitamin D deficiency, unspecified]ChronicOpen wounds of extremities (7 sources)Amputated big toe; Translations: [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, initial encounter]57-82-7138QvgatdhWweo wounds of extremities (3 sources)Injury of right foot; Translations: [Unspecified open wound, right foot, initial encounter]Onset: 052714-28-1049BvvbfhlfXtpdlhqqlgwlxp (10 sources)Arthritis of left acromioclavicular joint; Translations: [Primary osteoarthritis, left shoulder]07-27-8976GtlarozFilaf aftercare (1 source)[facility] (current) use of aspirin; Translations: [DIRECTOR CHILD CURRENT USE OF ASPIRIN]Onset: 41-11-5302PrzibdfoXmbcy aftercare (1 source)Other termite 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 helper (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) drug therapy; Translations: [OTH DIRECTOR CHILD CURRENT DRUG THERAPY]Onset: 01-87-1519TazndzhiRvfjv and ill-defined heart disease (20 sources)Left ventricular hypertrophy; Translations: [Cardiomegaly]Onset: 851732-58-2070NxrxzawCbhdg and ill-defined heart disease (2 sources)Cardiomegaly; Translations: [Cardiomegaly]Onset: 29-92-1934Ffvapvk Other connective tissue disease (3 sources)Pain in unspecified footEpisodicOther connective tissue disease (4 sources)Impingement syndrome of right shoulder; Translations: [IMPINGEMENT SYNDROME RIGHT SHOULDER]Onset: 92-33-8643RilhyhptJxbms connective tissue disease (17 sources)Chronic pain of right foot; Translations: [Pain in right toe(s)] Onset: 018445-13-5660SddrkvxsVvggk connective tissue disease (6 sources)Full thickness rotator cuff tear; Translations: [Complete rotator cuff tear or rupture of left shoulder, not specified as traumatic]07-23-2024 EpisodicOther connective tissue disease (2 sources)Pain in right toe(s); Translations: [Pain in limb]Onset: 04-03-2024 31-10-8934VbfwuxfcGgwdi connective tissue disease (6 sources)Pain in right foot; Translations: [Pain in right foot]08-29-2024 EpisodicOther connective tissue disease (8 sources)Pain in right lower limb; Translations: [Pain in right leg]03-13-2025 EpisodicOther connective tissue disease (3 sources)Pain of toe of right foot; Translations: [Pain in right toe(s)] 28-81-7383IdexuzfsKkbug connective tissue disease (5 sources)Recurrent falls ; Translations: [Repeated falls]53-78-5963Qgsumfyj Other diseases of veins and lymphatics (4 sources)Lymphedema, not elsewhere classified; Translations: [LYMPHEDEMA NOT ELSEWHERE CLASSIFIED]Onset: 07-98-4228GzibgmbWhihx diseases of veins and lymphatics (7 sources)Lymphedema of right lower limb; Translations: [Lymphedema, not elsewhere classified]21-83-0345HkwcwqbGnild diseases of veins and lymphatics (2 sources)Venous hypertension of lower limb; Translations: [Chronic venous hypertension (idiopathic) without complications of bilateral lower extremity] Onset: 516008-96-4710QkbgjrsOheew diseases of veins and lymphatics (1 source)Chronic venous hypertension (idiopathic) without complications of bilateral lower extremity; Translations: [Chronic venous hypertension (idiopathic) without complications of bilateral lower extremity]Onset: 26-14-4967OmcgcyoJrwhu diseases of veins and lymphatics (8 sources)Vascular insufficiency; Translations: [Venous insufficiency (chronic) (peripheral)]64-08-0564AeujvrgpCqxcu diseases of veins and lymphatics (2 sources)Venous insufficiency (chronic) (peripheral); Translations: [Venous insufficiency (chronic) (peripheral)]Onset: 47-22-6833GwbvbwniRqael ear and sense organ disorders (6 sources)Asymmetrical sensorineural hearing loss; Translations: [Sensorineural hearing loss, bilateral]17-34-6337IcenlrtWizhn ear and sense organ disorders (1 source)Bilateral tinnitus; Translations: [Tinnitus, bilateral]03-28-2025 EpisodicOther liver diseases (20 sources)Steatosis of liver; Translations: [Fatty (change of) liver, not elsewhere classified]ChronicOther nervous system disorders (20 sources)Neuropathy; Translations: [Polyneuropathy, unspecified]05-05-2025 ChronicOther nervous system disorders (3 sources)Polyneuropathy, unspecifiedChronicOther nervous system disorders (20 sources)Complex regional pain syndrome type II of right lower limb; Translations: [Causalgia of right lowerlimb]Onset: 606949-32-5720Lykjcnw Other nervous system disorders (20 sources)Peripheral nerve disease ; Translations: [Polyneuropathy, unspecified]Onset: 457200-53-4214XanbwybQdsis nervous system disorders (1 source)Causalgia of right lower limb; Translations: [Complex regional pain syndrome type II of right lowerlimb]Onset: 35-73-1735UoiobttGgwbs nervous system disorders (1 source)Other chronic pain; Translations: [Chronic toe pain, right foot]Onset: 08-18-8772GlroxhiLmaoy nervous system disorders (10 sources)Impairment of balance; Translations: [Other abnormalities of gait and mobility]53-49-3245AhdemrrdTvvbq nervous system disorders (5 sources)Unsteady when standing; Translations: [Unsteadiness on feet] 95-66-4776DtengjhqJfzbg non-traumatic joint disorders (7 sources)Derangement of left shoulder joint; Translations: [Other specific joint derangements of left shoulder, not elsewhere classified]46-76-9467Lrbsbmm Other non-traumatic joint disorders (6 sources)Pain in left shoulder; Translations: [Pain in joint, shoulder region] 34-81-9070XijsxzclGahlr non-traumatic joint disorders (4 sources)Disorder of shoulder; Translations: [Other specified joint disorders, left shoulder]12-82-0658UysimgeaAyyan non-traumatic joint disorders (2 sources)Pain in right elbow; Translations: [Pain in right elbow]Onset: 41-26-8005JdgjctxkUwmwv nutritional; endocrine; and metabolic disorders (20 sources)Obese class II; Translations: [Body mass index (BMI) 38.0-38.9, adult]ChronicOther nutritional; endocrine; and metabolic disorders (20 sources)Body mass index 40+ - severely obese; Translations: [Body mass index (BMI) 40.0-44.9, adult]16-72-1808UayxrtxDblhe nutritional; endocrine; and metabolic disorders (18 sources)Body mass index (BMI) 40.0-44.9, adult; Translations: [BODY MASS INDEX BMI 40.0-44.9 ADULT]Onset: 10-21-2021 Resolved: 79-65-4719XyhknrgRucvx nutritional; endocrine; and metabolic disorders (1 source)Body mass index (BMI) 39.0-39.9, adultOnset: 04-21-2022 Resolved: 50-67-5769GgfnyrmVeiwh nutritional; endocrine; and metabolic disorders (15 sources)Metabolic syndrome X; Translations: [Metabolic syndrome]ChronicOther nutritional; endocrine; and metabolic disorders (20 sources)Obesity; Translations: [Obesity, unspecified]ChronicOther nutritional; endocrine; and metabolic disorders (3 sources)Metabolic syndromeChronicOther nutritional; endocrine; and metabolic disorders (3 sources)Obesity, unspecified; Translations: [OBESITY UNSPECIFIED]Onset: 99-63-7117HbpfgorSwyls nutritional; endocrine; and metabolic disorders (20 sources)Severe obesity; Translations: [Morbid (severe) obesity due to excess calories]Onset: 597067-26-7663RsotwcpBvzlm nutritional; endocrine; and metabolic disorders (3 sources)Morbid (severe) obesity due to excess calories; Translations: [Class 3 severe obesity with serious comorbidity and body mass index (BMI) of 40.0 to 44.9 in adult, unspecified obesity type (HCC)]Onset: 28-40-5421RkrdwllPbdoi nutritional; endocrine; and metabolic disorders (1 source)Abnormal weight gainEpisodicOther screening for suspected conditions (not mental disorders or infectious disease) (20 sources)Computed tomography result abnormal; Translations: [Abnormal findings on diagnostic imaging of other specified body structures]ChronicOther skin disorders (2 sources)Hemosiderin pigmentation of lower limb due to varicose veins of lower limb; Translations: [Other specified disorders of pigmentation]07-04-2025 EpisodicOther skin disorders (1 source)Other specified disorders of pigmentation; Translations: [Other specified disorders of pigmentation]Onset: 34-45-5787GiebloonQeurm upper respiratory disease (4 sources)Epistaxis; Translations: [EPISTAXIS]Onset: 26-38-2634Dlcoqjmj Peripheral and visceral atherosclerosis (20 sources)Peripheral vascular disease; Translations: [Peripheral vascular disease, unspecified]Onset: 26-94-8149BmjmxfaLzqfkuyva; thrombophlebitis and thromboembolism (5 sources)Acute embolism and thrombosis of unspecified deep veins of unspecified lower extremity; Translations: [Acute embolism and thrombosis of unspecified deep veins of right lower extremity]Onset: 62-23-2886Lxqwpjph Residual codes; unclassified (20 sources)Sleep apnea; Translations: [Sleep apnea, unspecified]Onset: 872454-01-1585MhxhvgyPnrchjfx codes; unclassified (2 sources)Sleep apnea, unspecified; Translations: [Sleep apnea, unspecified] Onset: 28-46-2075ChbwbrrWzhwpnur codes; unclassified (1 source)Edema, unspecified; Translations: [EDEMA UNSPECIFIED]Onset: 12-12-2022 EpisodicResidual codes; unclassified (7 sources)Dependent edema; Translations: [Edema, unspecified]91-36-5802Wdbzrlac Residual codes; unclassified (2 sources)Bilateral lower limb edema; Translations: [Localized edema]07-04-2025 EpisodicResidual codes; unclassified (1 source)Localized edema; Translations: [Localized edema]Onset: 07-03-2025 EpisodicSkin and subcutaneous tissue infections (15 sources)Cellulitis of right lower limb; Translations: [Cellulitis]Onset: 81-96-2327HukrbaqkLjvqgkxyeod; intervertebral disc disorders; other back problems (20 sources)Low back pain; Translations: [Low back pain]81-97-4220Zkecmoke Superficial injury; contusion (1 source)Abrasion of nose, initial encounter; Translations: [ABRASION OF NOSE INITIAL ENCOUNTER]Onset: 69-53-9098CmtgqtvtZmndazhftfyu (4 sources)CHRN KIDNEY DISEASE STG 3 UNSP; Translations: [CHRN KIDNEY DISEASE STG 3 UNSP]Onset: 81-61-0882Ofqfbxjlgyny (1 source)Class 3 severe obesity with serious comorbidity and body mass index (BMI) of 40.0 to 44.9 in adult,unspecified obesity type (HCC); Translations: [Class 3 severe obesity with serious comorbidity and body mass index (BMI) of 40.0 to 44.9 in adult, unspecified obesity type (HCC)]Onset: 02-05-2024 Unclassified (1 source)Obesity, class 3; Translations: [Obesity, class 3]Onset: 11-25-2022 Unclassified (2 sources)Post surgery appointment.Unclassified (2 sources)Follow-up with Vascular Surgery if you have difficulty with healing. Unclassified (1 source)Call office on Monday to schedule follow-up with your Primary Care Provider within 3-5 days of discharge.Unclassified (1 source)Low back pain, unspecified; Translations: [Low back pain, unspecified] Onset: 28-43-8854Nexlptjk veins of lower extremity (1 source)Varicose veins of unspecified lower extremity with other complications; Translations: [Varicose veins of unspecified lower extremity with other complications]Onset: 39-53-1064Xrartwyt Past or Other Problems Problem ClassificationProblemDateDocumented DateEpisodic/Chronic Administrative/social admission (20 sources)Dietary counseling and surveillance; Translations: [Patient encounter status]Onset: 10-21-2021 Resolved: 73-04-3391PfuopzyhXwrlonwnrzz chest pain (20 sources)Precordial pain; Translations: [Chest pain]Onset: 01-08-2013 37-95-3674KomuiezlMjbqd aftercare (20 sources)Long-term current use of insulin; Translations: [[facility] (current) use of insulin]Onset: 086266-03-9097HkszranoKtqns aftercare (3 sources)long term care social worker (current) use of insulin; Translations: [long term care social worker (current) use of insulin]Onset: 14-45-7155PokmvgrrGfddy connective tissue disease (4 sources)Pain in right foot; Translations: [PAIN IN RIGHT FOOT]Onset: 43-96-8847KaoyhbpbUtroh connective tissue disease (6 sources)Pain in right leg; Translations: [Pain in limb]Onset: 03-19-2025 72-78-6478AvficnhePrdrm connective tissue disease (20 sources)Non-traumatic tendon rupture; Translations: [Spontaneous rupture of other tendons, right upper arm]Onset: 658413-54-6831WtthxmruMeteh diseases of kidney and ureters (4 sources)Cyst of kidney, acquired; Translations: [CYST OF KIDNEY ACQUIRED] Onset: 07-59-6733LevscsasGczkj diseases of veins and lymphatics (20 sources)Peripheral venous insufficiency; Translations: [Venous insufficiency (chronic) (peripheral)]Onset: 602651-00-5198KkemklbpBdxan lower respiratory disease (3 sources)Other forms of dyspnea; Translations: [OTHER FORMS OF DYSPNEA]Onset: 86-62-0787HllskktjBjzhq lower respiratory disease (20 sources)Dyspnea on exertion; Translations: [Other forms of dyspnea]Onset: 619580-19-7104IsdenhbyPebcb non-traumatic joint disorders (20 sources)Pain in elbow; Translations: [Pain in right elbow]Onset: 12-18-2024 98-76-5776JtmjnusqNqqvvku and strains (20 sources)Injury of upper extremity; Translations: [Strain of muscle, fascia and tendon of triceps, right arm, initial encounter]Onset: EpisodicUnclassified (1 source)CHRN KIDNEY DISEASE STG 3 UNSP; Translations: [CHRN KIDNEY DISEASE STG 3 UNSP]Onset: 58-53-1280Vctzqpbhdsvb (1 source)Obesity, class 3; Translations: [Obesity, class 3]Onset: 12-18-2024 Results Test NameValueInterpretationReference EucckJflkrxodEgoZ2vqm 27-71-1766RlS2o (Bld) [Mass fraction]6.6 %High<=5.9[facility] HospitalComment on above: Performed By: #### [id number] #### [facility] [address] [place] [address]Fxguiq Medicine Office/Clinic Noteon 33-89-5710Ywenpr Medicine Office/Clinic NoteFaboston medical center Medicine Office/Clinic Note Chief Complaint 3m chronic care follow up HPI Staff Pt presents today for 3m chronic care follow up S/P Amputation of Rt greater toe 07/04/25 Patient is here for follow up on Diabetes. Paresthesias, Ulcerations or sores? no Lisinopril, aspirin, statin therapy? Yes Foot Exam: DUE-sees podiatry Eye Exam: 03/13/2025 Last A1c: Hgb A1C %: 6.5 % High (03/13/25 08:53:00) Wants to discuss medications. (atorvastatin & furosemide) Clinical psychologist requesting info on venlafaxine. History of Present Illness pt presents today for med check. due for HGBA1C Review of Systems PHQ Score Initial Depression Screen Score: 0 SCORE General: alert, no acute distress ENMT: oral mucosa moist, no pharyngeal erythema or exudate Cardiovascular: regular rate and rhythm, normal peripheral perfusion Respiratory: Lungs CTA, respirations non labored Extremities: no deformity, no trauma Neurological: oriented x 4, LOC appropriate for age, CN II-XII intact, motor strength equal & normal bilaterally, speech normal Physical Exam Vitals & Measurements T: 36.8 ???C(Oral) HR: 68(Peripheral) RR: 18 BP: 128/84 SpO2: 95% HT: 66 in HT: 168 cm WT: 119.6 kg WT: 263.673 lb BMI: 42.38 Assessment/Plan 1. Type 2 diabetes mellitus with hyperlipidemia (E11.69: Type 2 diabetes mellitus with other specified complication) pt presents today for diabetes follow up. just had toe amputated due to osteomyelitis. due to have HGBA1C checked. foot exam deferred today due to he still has dressing on right foot from recent surgery. RTC in September. Ordered: Complex E&M Add on G2211 E&M of Est. Patient Low 20-29 Min 21897 E&M of Est. Patient Moderate 30-39 Min 47266 HgbA1c 2. Neck pain (M54.2: Cervicalgia) pt has had a couple falls recently and he is having worsening neck pain. x ray order provided to pt. he will go to [facility] Ordered: Complex E&M Add on G2211 E&M of Est. Patient Low 20-29 Min 58027 E&M of Est. Patient Moderate 30-39 Min 83291 XR Spine Cervical 2 or 3 Views 3. Recurrent falls (R29.6: Repeated falls) requesting PT HH through [facility] Ordered: Ambulatory Home Health Orders Complex E&M Add on G2211 E&M of Est. Patient Low 20-29 Min 74916 E&M of Est. Patient Moderate 30-39 Min 02532 XR Spine Cervical 2 or 3 Views 4. Unstable balance (R26.89: Other abnormalities of gait and mobility) referral for [facility] HH sent Ordered: Ambulatory Home Health Orders Complex E&M Add on G2211 E&M of Est. Patient Low 20-29 Min 33945 E&M of Est. Patient Moderate 30-39 Min 54248 5. Acquired absence of right great toe (Z89.411: Acquired absence of right great toe) Had right great toe removed 3 weeks ago, in walking boot. dressing dry and intact Ordered: Ambulatory Home Health Orders Complex E&M Add on G2211 E&M of Est. Patient Low 20-29 Min 12479 E&M of Est. Patient Moderate 30-39 Min 18646 6. Impaired mobility (Z74.09: Other reduced mobility) see above Ordered: Ambulatory Home Health Orders Complex E&M Add on G2211 E&M of Est. Patient Low 20-29 Min 85057 E&M of Est. Patient Moderate 30-39 Min 38517 7. BMI 40.0-44.9, adult (Z68.41: Body mass index [BMI] 40.0-44.9, adult) BMI education given Ordered: Complex E&M Add on G2211 E&M of Est. Patient Low 20-29 Min 58168 E&M of Est. Patient Moderate 30-39 Min 59400 8. Obesity, morbid, BMI 40.0-49.9 (E66.01: Morbid (severe) obesity due to excess calories) see above Ordered: Complex E&M Add on G2211 E&M of Est. Patient Low 20-29 Min 50982 E&M of Est. Patient Moderate 30-39 Min 84499 9. Nonsmoker (Z78.9: Other specified health status) continue not smoking Ordered: Complex E&M Add on G2211 E&M of Est. Patient Low 20-29 Min 18315 E&M of Est. Patient Moderate 30-39 Min 75532 10. 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 Patient Low 20-29 Min 29348 E&M of Est. Patient Moderate 30-39 Min 14205 Follow-up No qualifying data available Problem List/Past [...] neuropathy Complex renal cyst Coronary arteriosclerosis in [place] artery Dizziness Dizziness and giddiness Encounter for annual wellness visit (AWV) in Medicare patient Erythema of skin Fatty liver GERD (gastroesophageal r (more content not included)...[facility] HospitalComment on above:Result Comment: Electronically Signed By: Nanette Do\.br\Date and Time Signed: 07/21/25 14:45 EDTBasic Metabolic Panelon 69-43-4929Lqkrm gap [Moles/Vol]10.3 mmol/LNormal6.0-15.0The [facility] Physician GroupComment on above:Performed By: #### CBC, BMP #### [place] [address] USACalcium [Mass/Vol]9.0 mg/dLNormal8.6-10.3The [facility] Physician GroupComment on above:Performed By: #### CBC, BMP #### [place] [address] USAChloride [Moles/Vol]104 mmol/WTvbswi90-028Vah [facility] Physician GroupComment on above:Performed By: #### CBC, BMP #### [place] [address] USACO2 [Moles/Vol]26.1 mmol/DDsdfpr25.0-31.0The [facility] Physician GroupComment on above:Performed By: #### CBC, BMP #### [place] [address] USACreatinine [Mass/Vol]1.63 mg/dLHigh0.70-1.30The [facility] Physician GroupComment on above:Performed By: #### CBC, BMP #### [place] [address] USACreatinine Clr Calc Dmcqpdwv62.80NormalThe [facility] Physician [facility] CenterComment on above:Result Comment: PERFORMED BY: [place] [address] PATHOLOGIST WHITEPRINTING MACHINE OPERATOR YULIA VILLEGAS M.D.Performed By: #### CBC, BMP #### [place] [address] USAGFR/1.73 sq M.predicted MDRD (S/P/Bld) [Vol rate/Area] 43.669 mL/min/{1.73_m2}NormalThe [facility] Physician GroupComment on above: Performed By: #### CBC, BMP #### [place] [address] USAGlucose [Mass/Vol]120 mg/oQNemt35-588Sgl [facility] Physician GroupComment on above:Result Comment: Random Glucose Reference Range is dependent on time and content of last meal. Glucose of more than 200 mg/dL in a nonstressed, ambulatory subject supports the diagnosis of Diabetes Mellitus. ADA recommended reference rangePerformed By: #### CBC, BMP #### [place] [address] USAPotassium [Moles/Vol]4.4 mmol/LNormal3.5-5.1The [facility] Physician GroupComment on above:Performed By: #### CBC, BMP #### [place] [address] USASodium [Moles/Vol]136 mmol/SZfzdci642-446Zqf [facility] Physician GroupComment on above:Performed By: #### CBC, BMP #### [facility] [address] [place] [address] USAUrea nitrogen [Mass/Vol]30 mg/dLHigh7-25The [facility] Physician GroupComment on above:Performed By: #### CBC, BMP #### [place] [address] USAComplete Blood Count Auto Diffon 62-45-6388Hcrywldvu (Bld) [#/Vol]0.1 10*3/uLNormal0.0-0.2The [facility] Physician GroupComment on above: Result Comment: PERFORMED BY: [place] [address] PATHOLOGIST WHITEPRINTING MACHINE OPERATOR YULIA VILLEGAS M.D.Performed By: #### CBC, BMP #### [place] [address] USABasophils/100 WBC (Bld)0.8 %Normal.The [facility] Physician GroupComment on above:Performed By: #### CBC, BMP #### [place] [address] USAEosinophils (Bld) [#/Vol]0.3 10*3/uLNormal0.0-0.45The [facility] Physician GroupComment on above:Performed By: #### CBC, BMP #### [place] [address] USAEosinophils/100 WBC (Bld)4.3 %Normal.The [facility] Physician GroupComment on above:Performed By: #### CBC, BMP #### [place] [address] USAErythrocyte distribution width (RBC) [Ratio]14.5 %Normal 12.0-14.8The [facility] Physician GroupComment on above:Performed By: #### CBC, BMP #### [place] [address] USAHematocrit (Bld) [Volume fraction]35.6 %Low38.8-50.0The [facility] Physician GroupComment on above:Performed By: #### CBC, BMP #### [place] [address] USAHemoglobin (Bld) [Mass/Vol]12.0 g/dLLow13.0-17.0The [facility] Physician GroupComment on above:Performed By: #### CBC, BMP #### [place] [address] USALymphocytes (Bld) [#/Vol]0.8 10*3/uLLow1.00-4.8The [facility] Physician GroupComment on above:Performed By: #### CBC, BMP #### [place] [address] USALymphocytes/100 WBC (Bld)12.8 %Normal.The [facility] Physician GroupComment on above:Performed By: #### CBC, BMP #### [place] [address] USAMCH (RBC) [Entitic mass]27.5 zmCcsoid06.5-35.2The [facility] Physician GroupComment on above:Performed By: #### CBC, BMP #### [place] [address] USAMCV (RBC) [Entitic vol]81.9 fLLow83.5-101The [facility] Physician GroupComment on above:Performed By: #### CBC, BMP #### [place] [address] USAMean Corpuscular HGB Conc33.6 g/iOAinecl96.5-35.6The [facility] Physician GroupComment on above:Performed By: #### CBC, BMP #### [facility] [address] [place] [address] USAMonocytes (Bld) [#/Vol]0.6 10*3/uLNormal0.0-0.8The [facility] Physician GroupComment on above:Performed By: #### CBC, BMP #### [facility] [address] [place] [address] USAMonocytes/100 WBC (Bld)8.7 %Normal.The [facility] Physician GroupComment on above:Performed By: #### CBC, BMP #### [facility] [address] [place] [address] USANeutrophils (Bld) [#/Vol]4.9 10*3/uLNormal1.8-7.7The [facility] Physician GroupComment on above:Performed By: #### CBC, BMP #### [facility] [address] [place] [address] USANeutrophils/100 WBC (Bld)73.4 %Normal.The [facility] Physician GroupComment on above:Performed By: #### CBC, BMP #### [facility] [address] [place] [address] USANRBC%0.1 /100{WBC}Normal0-0.5The [facility]ician Group Comment on above:Performed By: #### CBC, BMP #### [facility] [address] [place] [address] USAPlatelet mean volume (Bld) [Entitic vol]7.9 fLNormal 6.6-10.1The [facility] Physician GroupComment on above:Performed By: #### CBC, BMP #### [facility] [address] [place] [address] USAPlatelets (Bld) [#/Vol]221 10*3/hRBusagh682-092Ard [facility] Physician GroupComment on above:Performed By: #### CBC, BMP #### [place] [address] USARBC (Bld) [#/Vol]4.35 10*6/uLNormal3.90-5.60The [facility] Physician GroupComment on above:Performed By: #### CBC, BMP #### [facility] [address] [place] [address] USAWBC (Bld) [#/Vol]6.6 10*3/uLNormal4.1-10.5The [facility] Physician GroupComment on above:Performed By: #### CBC, BMP #### [facility] [address] [place] [address] USAWhite Blood Count6.6 [CFU]/mLNormal4.1-10.5The [facility] Physician GroupComment on above:Performed By: #### CBC, BMP #### [facility] [address] [place] [address] USAGlucose Poct Glucometerson 05-27-4393Wgwkmhz [Mass/Vol]130 mg/dLNoAtrium Health Physician GroupComment on above:Result Comment: Random Glucose Reference Range is dependent on time and content of last meal. Glucose of more than 200 mg/dL in a nonstressed, ambulatory subject supports the diagnosis of Diabetes Mellitus. PERFORMED BY: [place] [address] PATHOLOGIST WHITEPRINTING MACHINE OPERATOR YULIA VILLEGAS M.D.Performed By: #### GLULS #### Point of Care testing ,Glucose [Mass/Vol]139 mg/dLAdventHealth Waterford Lakes ER Physician GroupComment on above: Result Comment: Random Glucose Reference Range is dependent on time and content of last meal. Glucose of more than 200 mg/dL in a nonstressed, ambulatory subject supports the diagnosis of Diabetes Mellitus. PERFORMED BY: [place] [address] PATHOLOGIST WHITEPRINTING MACHINE OPERATOR YULIA VILLEGAS M.D.Performed By: #### GLULS #### Point of Care testing ,US arterial pvr rest Johnny 67-63-9341VL arterial pvr rest [facility] [place] [address] [place] [address] Ultrasound Report Signed Patient: Dong Whitmore MR#: [id number] : 1950 Acct:[id number] Age/Sex: 74 / M ADM Date: 07/03/25 Loc: Room: [address] [place] [address] Type: ADM IN Attending Dr: Neo Venegas MD Ordering Provider: Nat Weldon APRN Date of Service: 07/04/25 US/US arterial pvr rest LE: right foot pain/ cellulitis Copies to: MD Nat Kwok, NURSES' REGISTRY DIRECTOR LOWER EXTREMITY SEGMENTAL ARTERIAL DOPSCAN (PVR) INDICATION: [...] Gramajo M.D. 07/05/2025 10:37 AM Dictation Location: [place] [address] Tech: Khadra Menezes Transcribed By: CIRO 07/05/25 1037 Dictated By: Tereso Gramajo MD 07/05/25 1036 Signed By: 07/05/25 1037[facility] ER Physician GroupBasic Metabolic Panelon 80-42-9115Yzvak gap [Moles/Vol]9.8 mmol/LNormal6.0-15.0The [facility] GroupComment on above:Performed By: #### CBC, BMP #### [facility] [address] [place] [address] USACalcium [Mass/Vol]9.0 mg/dLNormal8.6-10.3The [facility] Physician GroupComment on above:Performed By: #### CBC, BMP #### [facility] [address] [place] [address] USAChloride [Moles/Vol]106 mmol/ECgodzf74-519Ckr [facility] Physician GroupComment on above:Performed By: #### CBC, BMP #### [facility] [address] [place] [address] USACO2 [Moles/Vol]23.5 mmol/KKnldtx74.0-31.0The [facility] Physician GroupComment on above:Performed By: #### CBC, BMP #### [facility] [address] [place] [address] USACreatinine [Mass/Vol]1.40 mg/dLHigh0.70-1.30The [facility] Physician GroupComment on above:Performed By: #### CBC, BMP #### [facility] [address] [place] [address] USACreatinine Clr Calc Mmbenmuc39.88NormalThe [facility] Physician GroupComment on above:Result Comment: PERFORMED BY: [place] [address] PATHOLOGIST WHITEPRINTING MACHINE OPERATOR YULIA VILLEGAS M.D.Performed By: #### CBC, BMP #### [place] [address] USAGFR/1.73 sq M.predicted MDRD (S/P/Bld) [Vol rate/Area] 52.415 mL/min/{1.73_m2}NormalThe [facility] Physician [facility] CenterComment on above: Performed By: #### CBC, BMP #### [place] [address] USAGlucose [Mass/Vol]121 mg/eOYzdt77-889Oxm [facility] Physician GroupComment on above:Result Comment: Random Glucose Reference Range is dependent on time and content of last meal. Glucose of more than 200 mg/dL in a nonstressed, ambulatory subject supports the diagnosis of Diabetes Mellitus. ADA recommended reference rangePerformed By: #### CBC, BMP #### [place] [address] USAPotassium [Moles/Vol]4.3 mmol/LNormal3.5-5.1The [facility] Physician GroupComment on above:Result Comment: Hemolysis is present at a level that could interfere with the result. Contact lab if redraw is requiredPerformed By: #### CBC, BMP #### [place] [address] USASodium [Moles/Vol]135 mmol/DBcg785-463Kmj [facility] Physician GroupComment on above:Performed By: #### CBC, BMP #### [place] [address] USAUrea nitrogen [Mass/Vol]26 mg/dLHigh7-25The [facility] Physician GroupComment on above:Performed By: #### CBC, BMP #### [place] [address] USAC-Reactive Proteinon 47-53-6825N-Reactive Protein1.4 mg/dL High0.0-0.5The [facility] Physician GroupComment on above:Result Comment: PERFORMED BY: [place] [address] PATHOLOGIST WHITEPRINTING MACHINE OPERATOR YULIA VILLEGAS M.D.Performed By: #### GLULS #### Point of Care testing ,Complete Blood Count Auto Diffon 11-42-9451Pryemlogd (Bld) [#/Vol]0.1 10*3/uL Normal0.0-0.2The [facility] Physician GroupComment on above:Result Comment: PERFORMED BY: [place] [address] PATHOLOGIST WHITEPRINTING MACHINE OPERATOR YULIA VILLEGAS M.D.Performed By: #### CBC, BMP #### [place] [address] USABasophils/100 WBC (Bld)1.3 %Normal.The [facility] Physician GroupComment on above:Performed By: #### CBC, BMP #### [place] [address] USAEosinophils (Bld) [#/Vol]0.3 10*3/uLNormal0.0-0.45The [facility] Physician GroupComment on above:Performed By: #### CBC, BMP #### [place] [address] USAEosinophils/100 WBC (Bld)5.7 %Normal.The [facility] Physician GroupComment on above:Performed By: #### CBC, BMP #### [place] [address] USAErythrocyte distribution width (RBC) [Ratio]14.1 %Normal 12.0-14.8The [facility] Physician GroupComment on above:Performed By: #### CBC, BMP #### [place] [address] USAHematocrit (Bld) [Volume fraction]37.6 %Low38.8-50.0The [facility] Physician GroupComment on above:Performed By: #### CBC, BMP #### [place] [address] USAHemoglobin (Bld) [Mass/Vol]12.5 g/dLLow13.0-17.0The [facility] Physician GroupComment on above:Performed By: #### CBC, BMP #### [place] [address] USALymphocytes (Bld) [#/Vol]1.1 10*3/uLNormal1.00-4.8The [facility] Physician GroupComment on above:Performed By: #### CBC, BMP #### [place] [address] USALymphocytes/100 WBC (Bld)20.8 %Normal.The [facility] Physician GroupComment on above:Performed By: #### CBC, BMP #### [place] [address] USAMCH (RBC) [Entitic mass]27.7 jsAchvhg62.5-35.2The [facility] Physician GroupComment on above:Performed By: #### CBC, BMP #### [place] [address] USAMCV (RBC) [Entitic vol]83.2 fLLow83.5-101The [facility] Physician GroupComment on above:Performed By: #### CBC, BMP #### [place] [address] USAMean Corpuscular HGB Conc33.2 g/wLXwixvt79.5-35.6The [facility] Physician GroupComment on above:Performed By: #### CBC, BMP #### [facility] [address] [place] [address] USAMonocytes (Bld) [#/Vol]0.6 10*3/uLNormal0.0-0.8The [facility] Physician GroupComment on above:Performed By: #### CBC, BMP #### [place] [address] USAMonocytes/100 WBC (Bld)11.8 %Normal.The [facility] Physician GroupComment on above:Performed By: #### CBC, BMP #### [place] [address] USANeutrophils (Bld) [#/Vol]3.2 10*3/uLNormal1.8-7.7The [facility] Physician GroupComment on above:Performed By: #### CBC, BMP #### [place] [address] USANeutrophils/100 WBC (Bld)60.4 %Normal.The [facility] Physician GroupComment on above:Performed By: #### CBC, BMP #### [place] [address] USANRBC%0.1 /100{WBC}Normal0-0.5The [facility]ician Group Comment on above:Performed By: #### CBC, BMP #### [place] [address] USAPlatelet mean volume (Bld) [Entitic vol]7.8 fLNormal 6.6-10.1The [facility] Physician GroupComment on above:Performed By: #### CBC, BMP #### [place] [address] USAPlatelets (Bld) [#/Vol]219 10*3/dTPodbjz051-533Rlj [facility] Physician GroupComment on above:Performed By: #### CBC, BMP #### [place] [address] USARBC (Bld) [#/Vol]4.52 10*6/uLNormal3.90-5.60The [facility] Physician GroupComment on above:Performed By: #### CBC, BMP #### [facility] [address] [place] [address] USAWBC (Bld) [#/Vol]5.3 10*3/uLNormal4.1-10.5The [facility] Physician GroupComment on above:Performed By: #### CBC, BMP #### [facility] [address] [place] [address] USAWhite Blood Count5.3 [CFU]/mLNormal4.1-10.5The [facility] Physician GroupComment on above:Performed By: #### CBC, BMP #### [place] [address] USAGlucose Poct Glucometerson 63-67-4938Zrrenua [Mass/Vol]130 mg/dLNoAtrium Health Physician GroupComment on above:Result Comment: Random Glucose Reference Range is dependent on time and content of last meal. Glucose of more than 200 mg/dL in a nonstressed, ambulatory subject supports the diagnosis of Diabetes Mellitus. PERFORMED BY: [place] [address] PATHOLOGIST WHITEPRINTING MACHINE OPERATOR YULIA VILLEGAS M.D.Performed By: #### GLULS #### Point of Care testing ,Glucose [Mass/Vol]160 mg/dLAdventHealth Waterford Lakes ER Physician [facility] CenterComment on above: Result Comment: Random Glucose Reference Range is dependent on time and content of last meal. Glucose of more than 200 mg/dL in a nonstressed, ambulatory subject supports the diagnosis of Diabetes Mellitus. PERFORMED BY: [place] [address] PATHOLOGIST WHITEPRINTING MACHINE OPERATOR YULIA VILLEGAS M.D.Performed By: #### GLULS #### Point of Care testing ,Glucose [Mass/Vol]163 mg/dLNoAtrium Health Physician GroupComment on above: Result Comment: Random Glucose Reference Range is dependent on time and content of last meal. Glucose of more than 200 mg/dL in a nonstressed, ambulatory subject supports the diagnosis of Diabetes Mellitus. PERFORMED BY: [facility] [address] [place] [address] PATHOLOGIST WHITEPRINTING MACHINE OPERATOR YULIA VILLEGAS M.D.Performed By: #### GLULS #### Point of Care testing ,Ltltnok2Crq4: Cleaned MeterNoAtrium Health Physician GroupComment on above: Result Comment: PERFORMED BY: [facility] [address] [place] [address] PATHOLOGIST WHITEPRINTING MACHINE OPERATOR YULIA VILLEGAS M.D.Performed By: #### GLULS #### Point of Care testing ,Glucose [Mass/Vol]120 mg/dLAdventHealth Waterford Lakes ER Physician GroupComment on above: Result Comment: Random Glucose Reference Range is dependent on time and content of last meal. Glucose of more than 200 mg/dL in a nonstressed, ambulatory subject supports the diagnosis of Diabetes Mellitus.Performed By: #### GLULS #### Point of Care testing ,Efe 07-04-2025 Specimen: [id number] Received: 07/04/25 Status: YEMI Johnson Num: [id number] Spec Type: Surgical Subm Dr: Bassam Aguilar DPM Tissues: A DIGIT AMPUTATION (R FOOT) Procedures: HE/2, Gross/Micro L4, Decalcification Age/ Patient Sex Location Account Attending Physician Dong Whitmore 74/M [id number] Neo Venegas MD SPEC NUM: [id number] RECD: 07/04/25 STATUS: YEMI JOHNSON NUM: [id number] ZURI: 07/04/25-7 [facility] DR: Bassam Aguilar DPM ENTERED: 07/04/[address]: DANYA TYPE: Surgical DEPT: S ENTERED BY: [id number] RECV BY: [id number] ORDERED: HE/2, Gross/Micro L4, Decalcification ORDERED: HE/2, [...] with the patients date of , and Haim Hemphill great toe is a digit amputated at [...] by kuo-buckley, wrinkled, focally sloughing skin. A guest experience representative section of the wound with underlying phalangeal bone is submitted in A1 after decalcification with tangential cross-sections of the proximal skin margin submitted in A2. (2, , [id number] A)CAITLIN Specimen: [id number] Received: 07/04/25 Status: YEMI Johnson Num: [id number] Spec Type: Surgical Subm Dr: Bassam Aguilar DPM Tissues: A DIGIT AMPUTATION (R FOOT) Procedures: HE/[place], Gross/Micro L4, Decalcification Patient: Dong Whitmore [id number] (Continued) Specimen: [id number] Received: 07/04/25 (Continued) Signed (signature on file) Maribel Bonner DO 07/08/25 1135 Specimen: [id number] Received: 07/04/25 Status: YEMI Johnson Num: [id number] Spec Type: Surgical Subm Dr: Bassam Aguilar DPM Tissues: A DIGIT AMPUTATION (R FOOT) Procedures: HE/2, Gross/Micro L4, Decalcification Patient: Dong Whitmore [id number] (Continued) Specimen: [id number] Received: 07/04/25 (Continued) Microscopic Description Sections show bone, soft tissue, and skin with reactive changes, and chronic inflammation in skin and soft tissue. No evidence of significant acute inflammation. Peripheral margin is negative for acute inflammation. Specimen: [id number] Received: 07/04/25-1311 Status: YEMI Johnson Num: [id number] Spec Type: Surgical Subm Dr: Bassam Aguilar DPM Tissues: A DIGIT AMPUTATION (R FOOT) Procedures: HE/2, Gross/Micro L4, Decalcification Patient: Dong Whitmore [id number] (Continued) Signed (signature on file) Maribel Bonner DO 07/08/25 1135NoAtrium Health Physician GroupGlucose Poct Glucometerson 07-03-2025 [id number]: Cleaned MeterNoAtrium Health Physician GroupComment on above: Result Comment: PERFORMED BY: [facility] [place] [address] PATHOLOGIST WHITEPRINTING MACHINE OPERATOR YULIA VILLEGAS M.D.Performed By: #### GLULS #### Point of Care testing ,Glucose [Mass/Vol]211 mg/dLNoAtrium Health Physician GroupComment on above: Result Comment: Random Glucose Reference Range is dependent on time and content of last meal. Glucose of more than 200 mg/dL in a nonstressed, ambulatory subject supports the diagnosis of Diabetes Mellitus.Performed By: #### GLULS #### Point of Care testing ,Glucose [Mass/Vol]229 mg/dLAdventHealth Waterford Lakes ER Physician GroupComment on above: Result Comment: Random Glucose Reference Range is dependent on time and content of last meal. Glucose of more than 200 mg/dL in a nonstressed, ambulatory subject supports the diagnosis of Diabetes Mellitus. PERFORMED BY: [place] [address] PATHOLOGIST WHITEPRINTING MACHINE OPERATOR YULIA VILLEGAS M.D.Performed By: #### GLULS #### Point of Care testing ,XR foot RT min 3V*on 17-70-0508MB foot RT min 3V*[facility] Main [place] [address] [place] [address] XRay Report Signed Patient: Dong Whitmore MR#: [id number] : 1950 Acct:[id number] Age/Sex: 74 / M ADM Date: 07/03/25 Loc: Room: [address] [place] [address] Type: ADM IN Attending Dr: Neo Venegas [...] Kunz M.D. 07/03/2025 9:51 PM Dictation Location: RADIO-PC-29 Transcribed By: CIRO 07/03/252150 Dictated By: Anup Kunz MD 07/03/252148 Signed By: 07/03/25 [facility] 06-25-2025 [facility] Case Information Case Priority: None Programs: -- Referral Source: Rn Nursery Referral Reason: Disease management Case Type: Chronic [...] neuropathy Complex renal cyst Coronary arteriosclerosis in [place] artery Dizziness Dizziness and giddiness Encounter for [...] of neurostimulator electrode array, epidural (04/03/2024), TOE AMPUTATION(11/16/2018), ESWL - Extracorporeal shockwave lithotripsy for renal [...] mg= 1 tab(s), Oral, Daily Potassium Chloride (Wkf-Kpfy-Zsi M20) 20 mEq oral tablet, extended release, 20 mEq= 1 tab(s), Oral,Daily Rezdiffra 100 mg oral tablet, 100 mg= [...] Vioxx (intolerance, Unknown cause) (more content not included)...[facility]37on *Increase carvedilol to 12.5mg twice daily (you [...] upset. *Referral also sent for wound care clinic.[facility] Visiton [id number]-up [id number] Dong Whitmore 1950 M Date Provider Department Center 06/24/2025 166-MARKUS, MARY [facility] CARD [facility] Family History Problem Relation Age of Onset Stroke Mother Stroke Father Coronary artery disease Other Diabetes Other Family Status - Relation Status Age at Mother Father Other Level of Service:02962 AR OFFICE/OUTPATIENT ESTABLISHED MOD MDM 30 MIN Reason for Visit and Comments: Coronary Artery Disease [187] Hypertension [043733] - Had labs last week. Hyperlipidemia [182] Follow-up [712308] - Patient is here today for a 3 month routine follow up. Patient states he has no cardiac complaints at this time.[facility].Interpretation:on 35-83-6181Tzaaljeohbqvqk:CommentInvalid Interpretation [facility] HospitalComment on above:Result Comment: Not infected with HCV unless early or acute infection is suspected (which may be delayed in an immunocompromised individual), or other evidence exists to indicate HCV infection. Performed at: [address] [id number] PhD Faye Honeycuttformed By: #### [id number] #### [facility] [address], [place] [address]JXN Antibody RFX to Quant PCRon [id number] AbNon-Reactive Invalid Interpretation CodeNon ReactiveSelect Medical Cleveland Clinic Rehabilitation Hospital, AvonComment on above:Result Comment: Performed at: [address] [id number] PhD Faye Honeycuttformed By: #### [id number] #### [facility] [address], [place] [address]Jfmifkbenk Visit Summaryon 23-32-5111Zpubvwsuyu Visit Summary Ambulatory Visit Summary DONG WHITMORE [...] Nanette Do This Is Your Medications List [facility] Prescription (Eric Prather, 5 years.) [...] 30 mg Tab) potassium chloride (Potassium Chloride (Oys-Eqlp-Qwz M20) 20 mEq oral tablet, extended release) [...] of neurostimulator electrode array, epidural (04/03/2024), TOE AMPUTATION(11/16/2018), ESWL - Extracorporeal shockwave lithotripsy for renal [...] 2024 9:20 AM EDT With: Where: [address] [address]- Monday 9:15 AM EDT With: LATRICIA SCHUSTER, Araceli Treadwell Where: [facility] [address] [place] [address]- 2024 9:40 AM EST With: Nanette Do Where: [address] [address]- 2025 8:00 AM EDT With: Where: [address] [address]- Medications What How Much When [...] EVERY DAY Unchanged c (more content not included)...NormalSelect Medical Cleveland Clinic Rehabilitation Hospital, AvonCBC w/ Auto Diffon 97-38-0673Nxwxwdtt Absolute0.0 E9/LNormal0.0-0.2FOhio Valley Surgical HospitalComment on above:Performed By: #### [id number] #### [facility] [address], [place] [address]Lnskpehcn/100 WBC (Bld)0.6 %Normal0.0-2.0[facility] Hospital, AvonComment on above:Performed By: #### [id number] #### [facility] [address], [place] [address]Ipg Absolute0.2 E9/LNormal0.0-0.5FOhio Valley Surgical Hospital Comment on above:Performed By: #### [id number] #### [facility] [address], [place] [address]Oypziqderfy/100 WBC (Bld)3.1 %Normal0.0-8.0[facility] Hospital, AvonComment on above:Performed By: #### [id number] #### [facility] [address], [place] [address]Haslnqewtmn distribution width (RBC) [Ratio]14.3 %High10.9-14.2 [facility] Hospital, AvonComment on above:Performed By: #### [id number] #### [facility] [address], [place] [address]Zekkscgnzw (Bld) [Volume fraction]33.2 %Low37.7-49.0[facility] Hospital, AvonComment on above:Performed By: #### [id number] #### [facility] [address], [place] [address]Xkvtljfhwi (Bld) [Mass/Vol]11.3 g/dLLow13.5-17.5FOhio Valley Surgical HospitalComment on above:Performed By: #### [id number] #### [facility] [address] [place] [address]Hxjtm Absolute0.7 E9/LLow1.0-4.0[facility] Comment on above:Performed By: #### [id number] #### [facility] [address] [place] [address]Fpiuqlutoad/100 WBC (Bld)11.1 %Low14.0-50.0[facility] Hospital, AvonComment on above:Performed By: #### [id number] #### [facility] [address] [place] [address]QAZ (RBC) [Entitic mass]28.1 moFhmsoo19.0-34.0[facility], AvonComment on above:Performed By: #### [id number] #### [facility] [address] [place] [address]XPIR (RBC) [Mass/Vol]34.0 g/aVBeqkxi35.4-36.0[facility], AvonComment on above:Performed By: #### [id number] #### [facility] [address] [place] [address]CNM (RBC) [Entitic vol]82.9 lZUuynri62.0-100.0[facility], AvonComment on above:Performed By: #### [id number] #### [facility] [address] [place] [address]Quee Absolute0.4 E9/LNormal0.2-1.0[facility] Comment on above:Performed By: #### [id number] #### [facility] [address] [place] [address]Fvgrmrsqb/100 WBC (Bld)6.3 %Normal4.0-14.0[facility] Hospital, AvonComment on above:Performed By: #### [id number] #### [facility] [address], [place] [address]Vljfad Absolute5.0 E9/LNormal2.0-7.5FOhio Valley Surgical Hospital Comment on above:Performed By: #### [id number] #### [facility] [address], [place] [address]Nweavw Auto78.9 %High36.0-75.0[facility] Comment on above:Performed By: #### [id number] #### [facility] [address], [place] [address]Ouwkrdmr114.0 E9/NApopqs455.0-500.0[facility] Comment on above:Performed By: #### [id number] #### [facility] [address] [place] [address]Rsyuyvqw mean volume (Bld) [Entitic vol]8.6 fLNormal6.4-10.8 [facility] Hospital, AvonComment on above:Performed By: #### [id number] #### [facility] [address] [place] [address]RDP0.0 E12/LLow4.3-5.9[facility] Hospital, AvonComment on above:Performed By: #### [id number] #### [facility] [address] [place] [address]WPP0.4 E9/LNormal4.0-11.0[facility] Hospital, AvonComment on above:Performed By: #### [id number] #### [facility] [address] [place] [address]TPNjf 35-02-4897Dchanmw [Mass/Vol]3.9 g/dLNormal3.3-5.0[facility], AvonComment on above:Performed By: #### [id number] #### [facility] [address] [place] [address]Atpfwsz/Globulin [Mass ratio]1.5 {ratio}Normal1.1-2.2FOhio Valley Surgical HospitalComment on above:Performed By: #### [id number] #### [facility] [address], [place] [address]Tnn Phos78 Int._Unit/AMbgwyw12-38FosdneSelect Medical Cleveland Clinic Rehabilitation Hospital, [place]on Comment on above:Performed By: #### [id number] #### [facility] [address], [place] [address]FKW16 Int._Unit/LNormal6-46[facility], AvonComment on above:Performed By: #### [id number] #### [facility] [address], [place] [address]Lphbo gap [Moles/Vol]11 mmol/LNormal6-16[facility], AvonComment on above:Performed By: #### [id number] #### [facility] [address] [place] [address]GGP58 Int._Unit/LNormal5-43[facility], AvonComment on above:Performed By: #### [id number] #### [facility] [address], [place] [address]Vsxt Total0.3 mg/dLNormal0.0-1.1FOhio Valley Surgical Hospital Comment on above:Performed By: #### [id number] #### [facility] [address] [place] [address]YAS/Creat Ratio22 No QtwisIbrc67-14MhljpqSelect Medical [facility] Clinic Rehabilitation Hospital, [place]on Comment on above:Performed By: #### [id number] #### [facility] [address], [place] [address]Uzyjocq [Mass/Vol]9.0 mg/dLNormal8.9-11.1FOhio Valley Surgical HospitalComment on above:Performed By: #### [id number] #### [facility] [address], [place] [address]Wqwhzzlv [Moles/Vol]106 mmol/VRggser882-057KntsdiSelect Medical Cleveland Clinic Rehabilitation Hospital, AvonComment on above:Performed By: #### [id number] #### [facility] [address], [place] [address]NB4 [Moles/Vol]22 mmol/DNhyuzq62-98GvuwbbSelect Medical Cleveland Clinic Rehabilitation Hospital, [place]on Comment on above:Performed By: #### [id number] #### [facility] [address], [place] [address]Cmwqwsldmx [Mass/Vol]1.3 mg/dLNormal0.5-1.3FOhio Valley Surgical HospitalComment on above:Performed By: #### [id number] #### [facility] [address], [place] [address]Xcrhuury (S) [Mass/Vol]2.6 g/dLNormal1.4-4.0[facility], AvonComment on above:Performed By: #### [id number] #### [facility] [address] [place] [address]Rqtntss [Mass/Vol]203 mg/eBFius60-053YvdjmpSelect Medical Cleveland Clinic Rehabilitation Hospital, AvonComment on above:Performed By: #### [id number] #### [facility] [address] [place] [address]Efmwdgasb [Moles/Vol]4.0 mmol/LNormal3.5-5.3FOhio Valley Surgical HospitalComment on above:Performed By: #### [id number] #### [facility] [address] [place] [address]Xkoxqih [Mass/Vol]6.5 g/dLNormal6.0-7.8[facility], AvonComment on above:Performed By: #### [id number] #### [facility] [address] [place] [address]Dtsiyd [Moles/Vol]135 mmol/MJbxtil067-481VfoahvSelect Medical Cleveland Clinic Rehabilitation Hospital, AvonComment on above:Performed By: #### [id number] #### [facility] [address], [place] [address]Byqj nitrogen [Mass/Vol]28 mg/dLHigh5-21[facility], AvonComment on above:Performed By: #### [id number] #### [facility] [address] [place] [address]Pjzkil Medicine Office/Clinic Noteon 68-52-8631Ktnvpy Medicine Office/Clinic NoteArbour-Hri Hospital Medicine Office/Clinic Note HPI Staff please do LOW and PQH9 Dong is a 74 year old male presenting with 1 month f/u for insomnia DALILA encouraged to take 2 Seroquel 1 hour before bedtime if this helps dose will be increased to 100mg LOW- 14 PHQ- 12 Stopped taking Seroquel because [...] toe. pt has tried many different meds, therapy,psych therapy, has seen several podiatrists. has considered ketamine. would like to try dry needling at [facility]. pt feels he has tried everything and he just can't get it under control. RTC 3 months Ordered: busPIRone, 10 mg = 1 tab(s), Oral, TID, # 90 tab(s), Refills(s) 0, Pharmacy: [facility]/pharmacy #[id number], 168, cm, 06/19/25 11:19:00 EDT, Height/Length Dosing, 117.9, kg, 06/19/25 11:19:00 EDT, Weight Dosing Lab Specimen Collect [id number] Physical Therapy Evaluation - External Facility 2. Non-smoker (Z78.9: Other specified health status) continue not smoking Ordered: busPIRone, 10 mg = 1 tab(s), Oral, TID, # 90 tab(s), Refills(s) 0, [id number], cm, 06/19/25 11:19:00 EDT, Height/Length Dosing, 117.9, kg, 06/19/25 11:19:00 EDT, Weight Dosing Physical Therapy Evaluation - External Facility 3. BMI 40.0-44.9, adult (Z68.41: Body mass index [BMI] 40.0-44.9, adult) BMI education Ordered: busPIRone, 10 mg = 1 tab(s), Oral, TID, # 90 tab(s), Refills(s) 0, Pharmacy: [facility]/pharmacy #[id number], 168, cm, 06/19/25 11:19:00 EDT, Height/Length Dosing, 117.9, kg, 06/19/25 11:19:00 EDT, Weight Dosing Physical Therapy Evaluation - External Facility 4. Fatty liver (K76.0: Fatty (change of) liver, not elsewhere classified) will check labs today Orders: acarbose, 50 mg = 1 tab(s), Oral, TID, # 270 tab(s), Refills(s) 1, [id number] 168, cm, 06/19/25 11:19:00 EDT, Height/Length Dosing, 117.9, kg, 06/19/25 11:19:00 EDT, Weight Dosing tizanidine, See Instructions, TAKE 1 TO 2 TABLETS BY MOUTH 4 TIMES A DAY, # 270 tab(s), Refills(s) 1, Pharmacy: [facility]/pharmacy #[id number], 168, cm, 06/19/25 11:19:00 EDT, Height/Length [...] neuropathy Complex renal cyst Coronary arteriosclerosis in [place] artery Dizziness Dizziness and giddiness Encounter for [...] of neurostimulator electrode a (more content not included)...NormalSelect Medical Cleveland Clinic Rehabilitation Hospital, AvonComment on above:Result Comment: Electronically Signed By: Nanette Do\.br\Date and Time Signed: 06/19/25 12:35 EDTeGFRon 17-10-0345tXND98 mL/min/1.73 m2Low>=59[facility], AvonComment on above:Performed By: #### [id number] #### [facility] [address], [place] [address]WwzsepiraoDivine Savior Healthcare 82-92-5997YgpcodczfwChester County Hospital Case Information Case Priority: None Programs: -- Referral Source: Rn Nursery Referral Reason: Disease management Case Type: Chronic [...] neuropathy Complex renal cyst Coronary arteriosclerosis in [place] artery Dizziness Dizziness and giddiness Encounter for [...] of neurostimulator electrode array, epidural (04/03/2024), TOE AMPUTATION(11/16/2018), ESWL - Extracorporeal shockwave lithotripsy for renal [...] mg= 1 tab(s), Oral, Daily Potassium Chloride (Rex-Clkf-Vep M20) 20 mEq oral tablet, extended release, 20 mEq= 1 tab(s), Oral,Daily Rezdiffra 100 mg oral tablet, 100 mg= [...] 08/14/2024 Household alcohol concerns: (more content not included)...[facility] HospitalAmbulatory Visit Summaryon 29-26-9273Fwpbxrbmba Visit Summary Ambulatory Visit Summary DONG WHITMORE [...] Nanette Do This Is Your Medications List [facility] Prescription (Eric Prather, 5 years.) [...] 30 mg Tab) potassium chloride (Potassium Chloride (Rsg-Mkzx-Mih M20) 20 mEq oral tablet, extended release) [...] of neurostimulator electrode array, epidural (04/03/2024), TOE AMPUTATION(11/16/2018), ESWL - Extracorporeal shockwave lithotripsy for renal [...] SCHUSTER, Araceli Treadwell Where: [facility] [place] [address] [address], [address] [place] [address] 2025 8:00 AM EDT With: Where: [address] [address]- Medications What How Much When Why Instructions [...] BY MOUTH WITH BREAKFAST (more content not included)...[facility] Medicine Office/Clinic Noteon 76-77-5173Ftbjev Medicine Office/Clinic NoteFami Medicine Office/Clinic Note HPI Staff Mykel is [...] not take the cyclobenzaprine but continued tizanidine andrefilled it. Not following medication directions is why he was discharged from [facility]. 3. Non-smoker (Z78.9: Other specified health [...] neuropathy Complex renal cyst Coronary arteriosclerosis in [place] artery Dizziness Dizziness and giddiness Encounter for [...] for hepatitis C screeni (more content not included)...[facility] HospitalComment on above:Result Comment: Electronically Signed By: Nanette Do\.cyrus\Date and Time Signed: 05/20/25 11:30 EDTAmbulatory Visit Summary on 05-09-5844Vyepsbiltk Visit SummaryAmbulatory Visit Summary DONG WHITMORE :1950 Visit Date:05/15/2025 [...] done Your Care Team Attending Physician - Marylou SCHUSTER, Everett Bee Primary Care Physician - Nanette Do This Is Your Medications List [facility] Prescription ([employer] Yamilka, 5 years.) acarbose (acarbose [...] 30 mg Tab) potassium chloride (Potassium Chloride (Loq-Dwrz-Mga M20) 20 mEq oral tablet, extended release) quetiapine (SEROquel 50 mg ER Tab) resmetirom (Rezdiffra 100 mg oral tablet) simvastatin (simvastatin 20 mg Tab) simvastatin (simvastatin 40 mg Tab) sitagliptin (Januvia 100 mg Tab) sodium bicarbonate (sodium bicarbonate 650 mg Tab) venlafaxine (venlafaxine 75 mg Tab) Procedures Performed Percutaneous implantation of neurostimulator electrode array, epidural (04/03/2024), TOE AMPUTATION(11/16/2018), ESWL - Extracorporeal shockwave lithotripsy for renal [...] AM EDT With: Nanette Do Where: [address] [address]- Monday 9:15 AM EDT With: LATRICIA SCHUSTER, Araceli Treadwell Where: [facility] [place] [address] [address], [address] [place] [address]- 2025 8:00 AM EDT With: Where: [address] [address]- You Need to Complete the Following HCV [...] TAKE 1 TABLET BY (more content not included)...[facility] Medicine Office/Clinic Noteon 26-42-6242Ksvbct Medicine Office/Clinic NoteFaboston medical center Medicine Office/Clinic Note Chief Complaint Here for [...] home safety screening reviewed, see # 10 [place] Advance Directives reviewed, has completed and on [...] diagnosis of depression or concerns with alcohol use.I spent a total of 10 minutes on [...] for depression with risk score , negative fin brandys. Patient has been reminded to notify the provider if there would be a change or concerns withsymptoms with fear, unable to sleep, worrying too [...] 44.5 inches with today's visit. Reminded pt importanceto work on lowering current body weight with [...] vascular disease (E11.51: Type 2 diabetes mellitus withdiabetic peripheral angiopathy without gangrene) Patient is compliant on current DM medications: Actos, Januvia, Acarbose and NovoLog. Patient has Dexcom system, BS in am average around 140 and evening reading around 120. 03/13/25 HgbA1c 6.5. DM stoplight handout reviewed with s/s to monitor for and report to Endocrinology and PCP. Discussed ADA dietary recommendations with low carbs and reduce sug (more content not included)... [facility] HospitalComment on above:Result Comment: Electronically Signed By: DAVID ACOSTA CNP\.br\Date and Time Signed: 05/19/25 07:50 EDT\.br\Electronically Co-Signed By: Stormy Wilder LPN\.br\Date and Time Co-Signed: 05/16/25 13:59 EDT\.br\Electronically Co-Signed By: Stormy Wilder LPN\.br\Date and Time Co-Signed: 05/16/25 14:16 EDT\.br\Electronically Co- Signed By: Stormy Wilder LPN\.br\Date and Time Co-Signed: 05/16/25 14:39 EDTAmbulatory Visit Summaryon 53-35-3638Vkpcbrdjen Visit SummaryAmbulatory Visit Summary DONG WHITMORE :1950 Visit Date:04/14/2025 [...] - Nanette Do Primary Care Physician - Marylou SCHUSTER, Everett Bee This Is Your Medications List [facility] Prescription (Gillianjosé miguel Ochoalizzie, 5 years.) acarbose (acarbose 25 mg [...] 30 mg Tab) potassium chloride (Potassium Chloride (Dau-Hfhw-Jfv M20) 20 mEq oral tablet, extended release) resmetirom (Rezdiffra 100 mg oral tablet) simvastatin (simvastatin 20 mg Tab) simvastatin (simvastatin 40 mg Tab) sitagliptin (Januvia 100 mg Tab) sodium bicarbonate (sodium bicarbonate 650 mg Tab) tizanidine (tiZANidine 4 mg Tab) venlafaxine (venlafaxine 75 mg Tab) Procedures Performed Percutaneous implantation of neurostimulator electrode array, epidural (04/03/2024), TOE AMPUTATION(11/16/2018), ESWL - Extracorporeal shockwave lithotripsy for renal [...] 2024 8:00 AM EDT With: Where: [address] [address]- Monday 10:00 AM EDT With: Nanette Do Where: [address] [address]- Monday 9:15 AM EDT With: Araceli ROME MD Where: [facility] [address], [address] [place] [address]- Medications What How Much When [...] Unchanged losartan (losartan 50 (more content not included)...[facility] Medicine Office/Clinic Noteon [phone] Medicine Office/Clinic NoteArbour-Hri Hospital Medicine Office/Clinic Note HPI Staff Dong is a 74 year old male presenting with toe pain discuss referral to pain management Former Marylou patient Was discharged from [facility] due to behaviors Toe pain: [...] this is why he was discharged from [facility]. pt is looking in to psych pain management. is also thinking about going to a ketamine clinic in [place]. wants to hold off on referral to pain management at this time. will start Seroquel to take before bed to help with sleep. RTC 5 weeks Ordered: quetiapine, 50 mg = 1 tab(s), Oral, Bedtime, # 90 tab(s), Refills(s) 0, Pharmacy: [facility]/pharmacy #[id number], 168, cm, 04/14/25 10:19:00 EDT, Height/Length [...] no one is able to figure out whatexactly is causing this pain. pt states tramadol doesn't help either. 3. BMI 40.0-44.9, adult (Z68.41: Body mass index [BMI] 40.0-44.9, adult) BMI education given Ordered: quetiapine, 50 mg = 1 tab(s), Oral, Bedtime, # 90 tab(s), Refills(s) 0, [id number] 168, cm, 04/14/25 10:19:00 EDT, Height/Length Dosing, 116.9, kg, 04/14/25 10:19:00 EDT, Weight Dosing 4. Obesity, morbid, BMI 40.0-49.9 (E66.01: Morbid (severe) obesity due to excess calories) see above Ordered: quetiapine, 50 mg = 1 tab(s), Oral, Bedtime, # 90 tab(s), Refills(s) 0, [id number], cm, 04/14/25 10:19:00 EDT, Height/Length Dosing, 116.9, kg, 04/14/25 10:19:00 EDT, Weight Dosing 5. Non-smoker (Z78.9: Other specified health status) continue not smoking Ordered: quetiapine, 50 mg = 1 tab(s), Oral, Bedtime, # 90 tab(s), Refills(s) 0, [id number], 168, cm, 04/14/25 10:19:00 EDT, Height/Length [...] neuropathy Complex renal cyst Coronary arteriosclerosis in [place] artery Dizziness Dizziness and giddiness Erythema of [...] neurostimulator electrode array, epidural (more content not included)...[facility] HospitalComment on above:Result Comment: Electronically Signed By: Nanette Do\.br\Date and Time Signed: 04/14/25 16:23 EDTMR HEAD/BRAIN WO NANCYon 93-94-5417[address] [address] Magnetic Resonance Report Signed Patient: DONG WHITMORE MR#: [id number] : 1950 Acct:[id number] Age/Sex: 74 / M ADM Date: 04/08/25 Loc: MRI Attending Dr: David Wong M.D. Ordering Physician: David Wong M.D. Date of Service: 04/08/25 Procedure(s): MR head/brain wo con Accession Number(s): [id number] cc: EVERETT HICKMAN ; David Wnog M.D. The [address] [address] Patient Name: DONG WHITMORE MRN: [facility]:[id number] date: 1950 Sex: M Assigned Patient Location: MRI Current Patient Location: MRI Accession/Order Number: [id number] Exam Date: 04/08/2025 13:09 Report Date: 04/08/2025 [...] Kunz M.D. 04/08/2025 1:17 PM Dictation Location: [place] [address] Electronically authenticated by: [id number] Y Date: 04/08/2025 13:17 Dictated By: Anup Kunz M.D. Signed By: 04/08/25 1320 DD/ 1317 TD/TT: [employer] Hand Finisher:CHRISadiologhelen, RadiologistMD - 04/08/[address] [address] Magnetic Resonance Report Signed Patient: DONG WHITMORE MR#: [id number] : 1950 Acct:[id number] Age/Sex: 74 / M ADM Date: 04/08/25 Loc: MRI Attending Dr: David Wong M.D. Ordering Physician: David Wong M.D. Date of Service: 04/08/25 Procedure(s): MR head/brain wo con Accession Number(s): [id number] cc: EVERETT HICKMAN ; David Wong M.D. [place] [address] Patient Name: DONG WHITMORE MRN: [id number] date: 1950 Sex: M Assigned Patient Location: MRI Current Patient Location: MRI Accession/Order Number: [id number] Exam Date: 04/08/2025 13:09 Report Date: 04/08/2025 [...] Kunz M.D. 04/08/2025 1:17 PM Dictation Location: [place] [address] Electronically authenticated by: [id number] Y Date: 04/08/2025 13:17 Dictated By: Anup Kunz M.D. Signed By: 04/08/25 1320 DD/ 1317 TD/TT: [employer] Hand Finisher: [facility] HospitalRadiology Study observation (narrative)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 above 250 Hz Left Ear: Mild sloping to profound sensorineural hearing loss above 1K Hz [facility] PartnersHbA1c HPLC (Bld) [Mass fraction]Ordered By: Aldo Middleton on 04-15-1460CpB6e (Bld) [Mass fraction]6.1 %[facility] HospitalNo Panel InformationOrdered By: Aldo Middleton on 07-66-3388Rarveph Glucose 149Mansfield HospitalUS UNI ankle/arm indiceson 58-16-4970ZW UNI ankle/arm indicesKindred Hospital Dayton [facility] [address] [place] [address] Ultrasound Report Signed Patient: Dong Whitmore MR#: [id number] : 1950 Acct:[id number] Age/Sex: 74 / M ADM Date: 03/19/25 Loc: [facility] Room: Type: [facility] Attending Dr: Eligio Soni MD Ordering [...] Soni MD,FACS,FSVS 03/24/2025 9:53 AM Dictation Location: [place] [address] Tech: Roya Gabriel Transcribed By: [facility] 03/24/2553 Dictated By: Eligio Soni MD 03/24/2553 Signed By: 03/24/25 0953[facility] Physician GroupOffice Visiton 25-99-0640Pnzxdf- up [id number] Dong Whitmore 1950 M Date Provider Department Center 03/20/2025 MARY GRIFFIN CARD [facility] Family History Problem Relation Age of Onset Coronary artery disease Other Diabetes Other Family Status - Relation Status Age at Mother Father Other Level of Service:48186 AR OFFICE/OUTPATIENT ESTABLISHED MOD MDM [facility]-38[facility]1879[facility] Chronic Pain, Adult Chronic pain is a type of pain that lasts or keeps coming back for at least 3?6 months. You may have headaches, pain in the abdomen, or pain in other areas of the body. Chronic pain may be related sade illness, injury, or a health condition. Sometimes, [...] skin (aromatherapy). Other treatments may include: ??? Dyuu-cim-nufkvcu or prescription medicines. ??? Color, light, or sound therapy. ??? Local electrical stimulation. The electrical pulses help to relieve pain by temporarily stopping the nerve impulses that cause you to feel pain. ??? Injections. These deliver numbing or pain-relieving medicines into the spine or the area of pain. Medicines ??? Take uycn-lmc-gcxsvgy and prescription medicines only as told by your health care provider. ??? Ask your health care provider if the medicine prescribed to you: ? Requires you to avoid driving or using machinery. ? Can cause constipation. You may need to take these actions to prevent or treat constipation: ? Drink enough fluid to keep your urine pale yellow. ? Take xryd-ifv-pbotlcd or prescription medicines. ? Eat foods that [...] the National Suicide Prevention Lifeline at or 060. This is open 24 hours aday. ??? Text the Crisis Text Line at 859730. This information is not intended to replace advice given to you by your health care provider. Make sure you discuss any questions you have with your health care provider. Document Revised: 05/17/2023 Document Reviewed: 04/19/2023 [employer] Patient Education ? 2023 [employer].NormalSelect Medical [facility] CBC w/ Auto Diffon 11-37-1761Pcgigues Absolute0.0 E9/LNormal0.0-0.2FOhio Valley Surgical HospitalComment on above:Performed By: #### [id number] #### [facility] Laboratory [address], [place] [address]Hpuvpjueo/100 WBC (Bld)0.4 %Normal0.0-2.0[facility] Hospital, AvonComment on above:Performed By: #### [id number] #### [facility] Laboratory [address], [place] [address]Gci Absolute0.3 E9/LNormal0.0-0.5FOhio Valley Surgical Hospital Comment on above:Performed By: #### [id number] #### [facility] Laboratory [address], [place] [address]Rgmkyuhlhhr/100 WBC (Bld)3.6 %Normal0.0-8.0[facility] Hospital, AvonComment on above:Performed By: #### [id number] #### [facility] Laboratory [address], [place] [address]Vqrnopyfzgq distribution width (RBC) [Ratio]14.9 %High10.9-14.2 [facility] Hospital, AvonComment on above:Performed By: #### [id number] #### [facility] Laboratory [address], [place] [address]Kqzopfwuno (Bld) [Volume fraction]38.9 %Aglfex68.7-49.0[facility], AvonComment on above:Performed By: #### [id number] #### [facility] Laboratory [address], [place] [address]Nrvhhxdrff (Bld) [Mass/Vol]13.2 g/dLLow13.5-17.5FOhio Valley Surgical HospitalComment on above:Performed By: #### [id number] #### [facility] Laboratory [address] [place] [address]Veymm Absolute1.3 E9/LNormal1.0-4.0[facility] Comment on above:Performed By: #### [id number] #### [facility] Laboratory [address], [place] [address]Oufoltfmrmb/100 WBC (Bld)16.0 %Zjkgbt49.0-50.0[facility] Hospital, AvonComment on above:Performed By: #### [id number] #### [facility] Laboratory [address], [place] [address]MQX (RBC) [Entitic mass]28.1 wgJtjcmu00.0-34.0[facility], AvonComment on above:Performed By: #### [id number] #### [facility] Laboratory [address], [place] [address]KYXJ (RBC) [Mass/Vol]33.8 g/vEStsuvm80.4-36.0[facility], AvonComment on above:Performed By: #### [id number] #### [facility] Laboratory [address], [place] [address]WYD (RBC) [Entitic vol]83.2 dNReugvd95.0-100.0[facility], AvonComment on above:Performed By: #### [id number] #### [facility] Laboratory [address], [place] [address]Vpro Absolute0.5 E9/LNormal0.2-1.0[facility] Comment on above:Performed By: #### [id number] #### [facility] Laboratory [address], [place] [address]Gcmhzavfz/100 WBC (Bld)6.7 %Normal4.0-14.0[facility] Hospital, AvonComment on above:Performed By: #### [id number] #### [facility] Laboratory [address], [place] [address]Cmbkip Absolute5.8 E9/LNormal2.0-7.5FOhio Valley Surgical Hospital Comment on above:Performed By: #### [id number] #### [facility] Laboratory [address], [place] [address]Qggezz Auto73.3 %Migfrj22.0-75.0[facility] Comment on above:Performed By: #### [id number] #### [facility] Laboratory [address], [place] [address]Hsmhrubv613.0 E9/GIrosgp088.0-500.0[facility] Comment on above:Performed By: #### [id number] #### [facility] Laboratory [address], [place] [address]Rnajylxo mean volume (Bld) [Entitic vol]8.8 fLNormal6.4-10.8 [facility], AvonComment on above:Performed By: #### [id number] #### [facility] Laboratory [address] [place] [address]URX3.7 E12/LNormal4.3-5.9[facility] Hospital, AvonComment on above:Performed By: #### [id number] #### [facility] Laboratory [address] [place] [address]YPG9.9 E9/LNormal4.0-11.0[facility], AvonComment on above:Performed By: #### [id number] #### [facility] Laboratory [address] [place] [address]ZGTzr 43-99-5810Fhrticn [Mass/Vol]4.2 g/dLNormal3.3-5.0[facility], AvonComment on above:Performed By: #### [id number] #### [facility] Laboratory [address] [place] [address]Ovohzrz/Globulin [Mass ratio]1.6 {ratio}Normal1.1-2.2FOhio Valley Surgical HospitalComment on above:Performed By: #### [id number] #### [facility] Laboratory [address] [place] [address]Ojw Phos86 Int._Unit/DOibzri68-32GcjleaSelect Medical Cleveland Clinic Rehabilitation Hospital, [place] Comment on above:Performed By: #### [id number] #### [facility] Laboratory [address] [place] [address]YLU87 Int._Unit/LNormal6-46[facility], AvonComment on above:Performed By: #### [id number] #### [facility] Laboratory [address] [place] [address]Dpjjj gap [Moles/Vol]13 mmol/LNormal6-16[facility], AvonComment on above:Performed By: #### [id number] #### [facility] Laboratory [address] [place] [address]BUI07 Int._Unit/LNormal5-43[facility], AvonComment on above:Performed By: #### [id number] #### [facility] Laboratory [address] [place] [address]Ipyi Total0.5 mg/dLNormal0.0-1.1FOhio Valley Surgical Hospital Comment on above:Performed By: #### [id number] #### [facility] Laboratory [address], [place] [address]JNS/Creat Ratio22 No EieeaNzof54-97ZyosgwSelect Medical [facility] Clinic [facility] [place] Comment on above:Performed By: #### [id number] #### [facility] Laboratory [address], [place] [address]Eiesuvu [Mass/Vol]9.4 mg/dLNormal8.9-11.1FOhio Valley Surgical HospitalComment on above:Performed By: #### [id number] #### [facility] Laboratory [address], [place] [address]Wymtellv [Moles/Vol]105 mmol/PNnprzy640-938DenarpSelect Medical Cleveland Clinic Rehabilitation Hospital, AvonComment on above:Performed By: #### [id number] #### [facility] Laboratory [address], [place] [address]KH2 [Moles/Vol]23 mmol/EXjwaap21-78SpyzkmSelect Medical [facility] [place] Comment on above:Performed By: #### [id number] #### [facility] Laboratory [address], [place] [address]Vuqnhzncnm [Mass/Vol]1.2 mg/dLNormal0.5-1.3FOhio Valley Surgical HospitalComment on above:Performed By: #### [id number] #### [facility] Laboratory [address], [place] [address]Ezrtikdi (S) [Mass/Vol]2.7 g/dLNormal1.4-4.0[facility], AvonComment on above:Performed By: #### [id number] #### [facility] Laboratory [address], [place] [address]Bzclyzc [Mass/Vol]121 mg/dGZnbzow39-758EcleijSelect Medical Cleveland Clinic Rehabilitation Hospital, AvonComment on above:Performed By: #### [id number] #### [facility] Laboratory [address], [place] [address]Gnsevehhq [Moles/Vol]4.0 mmol/LNormal3.5-5.3FOhio Valley Surgical HospitalComment on above:Performed By: #### [id number] #### [facility] Laboratory [address], [place] [address]Rejjnqn [Mass/Vol]6.9 g/dLNormal6.0-7.8[facility], AvonComment on above:Performed By: #### [id number] #### [facility] Laboratory [address], [place] [address]Owzadh [Moles/Vol]137 mmol/CSletxw205-377ZzsjmgSelect Medical Cleveland Clinic Rehabilitation Hospital, AvonComment on above:Performed By: #### [id number] #### [facility] Laboratory [address] [place] [address]Ircj nitrogen [Mass/Vol]26 mg/dLHigh5-21[facility], AvonComment on above:Performed By: #### [id number] #### [facility] Laboratory [address] [place] [address]OgnF6plv 81-38-3349XlR0j (Bld) [Mass fraction]6.5 %High<=5.9 [facility] Hospital, AvonComment on above:Performed By: #### [id number] #### [facility] Laboratory [address], [place] [address]Lleas Panelon 00-34-1475Legzherwkpb [Mass/Vol]127 mg/dLNormal 120-200[facility], AvonComment on above:Performed By: #### [id number] #### [facility] Laboratory [address], [place] [address]Iddpqbvxabx in HDL [Mass/Vol]37 mg/dLInvalid Interpretation CodeSelect Medical Cleveland Clinic Rehabilitation Hospital, AvonComment on above:Result Comment: '>= 60 LOW RISK' '<= 40 HIGH RISK'Performed By: #### [id number] #### [facility] Laboratory [address], [place] [address]Swbcibmxebo in LDL [Mass/Vol]62 mg/dLNormal<=129[facility], AvonComment on above:Performed By: #### [id number] #### [facility] Laboratory [address], [place] [address]Soldtcpzggn in VLDL [Mass/Vol]43 mg/dLHigh7-40[facility], AvonComment on above:Performed By: #### [id number] #### [facility] Laboratory [address], [place] [address]Hkftsdutyuft [Mass/Vol]213 mg/dLHigh<=149[facility], AvonComment on above:Performed By: #### [id number] #### [facility] Laboratory [address], [place] [address]P MA/Cr Ratioon 69-96-3091Kgbiacod/Cr Ratio32.8 mg/gm CrHigh .0-30.0[facility], AvonComment on above:Result Comment: 30-300 mg/g Cr indicates an increased risk for diabetic nephropathy. >300 mg/g Cr is consistent with clinical nephropathy.Performed By: #### [id number] #### [facility] Laboratory [address], [place] [address]D Xdrlnkzmmq646.0 mg/dLInvalid Interpretation CodeSelect Medical Cleveland Clinic Rehabilitation Hospital, AvonComment on above:Performed By: #### [id number] #### [facility] Laboratory [address], [place] [address]U Microalb4.0 mg/dLHigh0.0-1.9[facility] Comment on above:Performed By: #### [id number] #### [facility] Laboratory [address], [place] [address]P-ubo reportOrdered By: Mert Castano on 58-30-5573Fcvam report [facility] Main [address] [address] XRay Report Signed Patient: Dong Whitmore MR#: [id number] : 1950 Acct:[id number] Age/Sex: 74 / M ADM Date: 5 Loc: XD Room: Type: REG CLI Attending Dr: Marce Bowen APRN Copies to: [...] and facet degeneration. SOFT TISSUES: Atherosclerosis BONY MINERALIZATION:Adequate XR/XR lumbar spine 6V w bending IMPRESSION: No hypermobility. Multilevel degenerative listhesis and extensive spondylosis and facetdegeneration. Impression dictated by: Mert Castano M.D. 03/13/2025 5:49 PM Dictation Location[facility] Transcribed By: [facility] 03/13/251748 Dictated By: Mert Castano DO 03/13/251747 Signed By: 03/13/25 174 [facility]field HospitalXR lumbar spine 6V w bendingon 10-69-0070PC lumbar spine 6V w bendingSELECT MEDICAL [facility] Main [place] [address] [place] [address] XRay Report Signed Patient: Dong Whitmore MR#: [id number] : 1950 Acct:[id number] Age/Sex: 74 / M ADM Date: 03/13/25 Loc: XD Room: Type: [facility] CLI Attending Dr: Marce Bowen APRN Copies to: [...] and facet degeneration. SOFT TISSUES: Atherosclerosis BONY MINERALIZATION:Adequate XR/XR lumbar spine 6V w bending IMPRESSION: No hypermobility. Multilevel degenerative listhesis and extensive spondylosis and facet degeneration. Impression dictated by: Mert Castano M.D. 03/13/2025 5:49 PM Dictation Location: [facility] Transcribed By: [facility] 03/13/251748 Dictated By: Mert Castano DO 03/13/251747 Signed By: 03/13/251748[facility] Physician GroupeGFRon 01-22-0366vQVY34 mL/min/1.73 x4Kbuirx>=59[facility]aritan HospitalComment on above:Performed By: #### [id number] #### [facility] Laboratory [address], [place] [address]ZhyoujaehkDivine Savior Healthcare 74-40-0030NrbdhuprfaChester County Hospital Case Information Case Priority: None Programs: -- Referral Source: Rn Nursery Referral Reason: Disease management Case Type: Chronic Care Management Risk Score: -- Case Status: Active (March 11, 2025) Date Assigned: February 24, 2025 Assigned By: Conrad Yoon Date Enrolled: March 11, 2025 Assigned Primary Personnel: Conrad Yoon Assigned Secondary Personnel: -- Case Physician: Everett Hickman MD Ongoing Acquired absence of right [...] neuropathy Complex renal cyst Coronary arteriosclerosis in [place] artery Dizziness Dizziness and giddiness Erythema of [...] of neurostimulator electrode array, epidural (04/03/2024), TOE AMPUTATION(11/16/2018), ESWL - Extracorporeal shockwave lithotripsy for renal [...] mg= 1 tab(s), Oral, Daily Potassium Chloride (Qgy-Dzqq-Noi M20) 20 mEq oral tablet, extended release, [...] Hypertension: Father. Multiple sclerosis (more content not included)...[facility] HospitalPochristianacare HealthPopulation Health Problems Ongoing Acquired absence of right [...] neuropathy Complex renal cyst Coronary arteriosclerosis in [place] artery Dizziness Dizziness and giddiness Erythema of [...] of neurostimulator electrode array, epidural (04/03/2024), TOE AMPUTATION(11/16/2018), ESWL - Extracorporeal shockwave lithotripsy for renal [...] mg= 1 tab(s), Oral, Daily Potassium Chloride (Vax-Kteh-Wnz M20) 20 mEq oral tablet, extended release, [...] - Comments: - - Intervention Frequency Status Radio Interference Supervisor Learn About Triggers, Prevention and Management - [...] - Comments: - - Intervention Frequency Status Radio Interference Supervisor Learn About Home Safety to Prevent Falls or Injury - - Not done - - Review Educational Material - - Not done - - Use Cane When Walking - - Not done - - Take Breaks When Needed - - Not done - - Go (more content not included)...[facility] HospitalAmbulatory Visit Summaryon 98-78-2560Umsqssrimk Visit SummaryAmbulatory Visit Summary DONG WHITMORE :1950 Visit Date:03/06/2025 Ambulatory Visit Instructions Your Diagnosis Fatty liver Calculus of gallbladder without cholecystitis without obstruction GERD (gastroesophageal reflux disease) Your Care Team Attending Physician - Candace SCHUSTER, Tomi Sheffield Primary Care Physician - Everett Hickman MD This Is Your Medications List [...] 30 mg Tab) potassium chloride (Potassium Chloride (Mwh-Mtpn-Qqm M20) 20 mEq oral tablet, extended release) simvastatin (simvastatin 20 mg Tab) simvastatin (simvastatin 40 mg Tab) sitagliptin (Januvia 100 mg Tab) sodium bicarbonate (sodium bicarbonate 650 mg Tab) tizanidine (tiZANidine 4 mg Tab) venlafaxine (venlafaxine 75 mg Tab) Procedures Performed Percutaneous implantation of neurostimulator electrode array, epidural (04/03/2024), TOE AMPUTATION(11/16/2018), ESWL - Extracorporeal shockwave lithotripsy for renal [...] 2024 8:40 AM EDT With: Where: [address] [address] 2024 8:00 AM EDT With: Where: [address] [address]- Monday 9:15 AM EDT With: LATRICIA SCHUSTER, Araceli Treadwell Where: [facility] [address], [address] [place] [address]- You Need to Schedule the Following Appointments Follow Up with Candace SCHUSTER, YFN Hatch, MED When: In 6 months Where: [address], [address] [facility] [address] [place] [phone] Medications What How Much When Why Instructions [...] vascular disease Type 2 diabetes mellitus with peiun6g chronic kidney disease and hypertension Erythema of skin BMI 40.0-44.9, adult Class 3 severe obesity due to excess calories with body mass index (BMI) of 40.0 to 44.9 in adult Nonsmoker Lumbar stenosis Peripheral edema Handicap Placard, 5 years. Contact prescribing physician if questions or concerns Unchanged nitroglycerin (nitroglycerin 0 (more content not included)...Normal [facility], AvonGastroenterology Office/Clinic Noteon 03-06-2025 Gastroenterology Office/Clinic NoteGastroenterology Office/Clinic Note Chief Complaint Wants to discuss [...] year of initiating therapy Length of therapy: -[facility], more data will be available in the [...] When Contact Information Candace SCHUSTER, YFN Hatch, [facility] In 6 months [address], [address]- [phone] Additional Instructions: Problem List/Past Medical History Ongoing Acquired absence of right great toe 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 Acquired absence of third toe of right foot Allergic rhinitis Anticoagulated Balance problem Benign hypertension with chronic kidney disease, stage III Bilater (more content not included)...[facility] HospitalComment on above:Result Comment: Electronically Signed By: Candace SCHUSTER, Tomi Sheffield\.br\Date and Time Signed: 03/06/25 13:18 EDT\.br\Electronically Co-Signed By: Helena Gomez MA\.br\Date and Time Co-Signed: 03/06/25 13:17 EDT Ambulatory Visit Summaryon [id number] Visit SummaryAmbulatory Visit Summary DONG WHITMORE :1950 Visit Date:02/18/2025 Ambulatory Visit Instructions Your Diagnosis Coronary arteriosclerosis in [place] artery Type 2 diabetes mellitus with hyperlipidemia Pain in right toe(s) Calculus of gallbladder without cholecystitis without obstruction Diverticulosis of intestine, part unspecified, without perforation or abscess without bleeding SANTANA (nonalcoholic steatohepatitis) Hyperlipidemia, unspecified Your Care Team Attending Physician - Everett Hickman MD Primary Care Physician - Everett Hickman MD This Is Your Medications List [facility] Prescription (Eric Prather, 5 years.) [...] 30 mg Tab) potassium chloride (Potassium Chloride (Nkj-Fjgf-Xek M20) 20 mEq oral tablet, extended release) simvastatin (simvastatin 20 mg Tab) simvastatin (simvastatin 40 mg Tab) sitagliptin (Januvia 100 mg Tab) sodium bicarbonate (sodium bicarbonate 650 mg Tab) tizanidine (tiZANidine 4 mg Tab) venlafaxine (venlafaxine 75 mg Tab) Procedures Performed Percutaneous implantation of neurostimulator electrode array, epidural (04/03/2024), TOE AMPUTATION(11/16/2018), ESWL - Extracorporeal shockwave lithotripsy for renal [...] 2024 8:40 AM EDT With: Where: [address] [address]- 2024 8:00 AM EDT With: Where: [address] [address]- Monday 9:15 AM EDT With: LATRICIA SCHUSTER, Araceli Treadwell Where: [facility] [address], [address] [place] [address]- You Need to Complete the Following CBC w/ Auto Diff, Blood, Routine collect, 02/18/25, Order for future visit, Lab Collect, Coronary arteriosclerosis in [place] artery Type 2 diabetes mellitus with hyperlipidemia, Not Required, PrintLabel By Order Location Comprehensive Metabolic Panel, Blood, Routine collect, 02/18/25, Order for future visit, Lab Collect, Coronary arteriosclerosis in [place] artery Type 2 diabetes mellitus with hyperlipidemia, Not Required, Print Label By Order Location HgbA1c, Blood, Routine collect, 02/18/25, Order for future visit, Lab Collect, Coronary arteriosclerosis in [place] artery Type 2 diabetes mellitus with hyperlipidemia, Required & Missing, PrintLabel By Order Location Lipid Panel, Blood, Routine collect, 02/18/25, Order for future visit, Lab Collect, Coronary arteriosclerosis in [place] artery Type 2 diabetes mellitus with hyperlipidemia, Required & Missing, Print Label By Order Location Microalbumin Level Urine, Urine, Routine collect, 02/18/25, Order for future visit, Nurse collect, Coronary arteriosclerosis in [place] artery Type 2 diabetes mellitus with hyperlipidemia, Not Required, Print Label By Order Location Urine Microalbumin/Creatinine Ratio, Urine, Routine collect, 02/18/25, Order for future visit, Nurse collect, Coronary arteriosclerosis in [place] artery Type 2 diabetes mellitus with hyperlipidemia, Not Required, Print Label By Order Location Medications What How Much When Why Instructions Unchanged acarbose (acarbose 25 mg oral tablet) See instructions TAKE 2 TABLETS BY MOUTH 3 TIMES A DAY Unchanged aspirin (aspirin 81 mg Oral EC Tab) 1 Tablets By Mouth Every day Unchanged bu (more content not included)...[facility] Family Medicine Office/Clinic Noteon [id number] Medicine Office/Clinic NoteFami Medicine Office/Clinic Note Chief Complaint Persistent worsening of toe pain. HPI Staff 1m follow up Re-referred to PT @ [facility]- 3 more sessions, PT said he [...] level of consciousness appropriate for age, CN II- XII intact, motor strength equal & normal bilaterally, speech normal Abdomen: Soft, Non-tender, Non-distended, + Bowel sounds Assessment/Plan 1. Coronary arteriosclerosis in [place] artery (I25.10: Atherosclerotic heart disease of [place] coronary artery without angina pectoris) - No changes in management discussed. Ordered: CBC w/ Auto Diff Comprehensive Metabolic Panel HgbA1c Lipid Panel Microalbumin Level Urine Urine Microalbumin/Creatinine Ratio 2. Type 2 diabetes mellitus with hyperlipidemia (E11.69: Type 2 diabetes mellitus with other specified complication) - Stabilization of blood glucose was advised. Ordered: CBC w/ Auto Diff Comprehensive Metabolic Panel HgbA1c Lipid Panel Microalbumin Level Urine Urine Microalbumin/Creatinine Ratio 3. Pain in right toe(s) (M79.674) [...] to evaluate for possible neuropathy originating from theback as a correlation to both toe pain and diabetes-related conditions. On a related note, we talked about the patient???s type 2 diabetes, focusing on the fluctuations in blood glucose levels and the risks associated with unrecognized hypoglycemia. It is crucial to maintain blood glucose stabilityand the potential introduction of continuous glucose monitoring [...] encounter, evaluating and assessing the patient, documenting thevisit, and ordering appropriate follow-up work was 42 minutes. Follow-up No qualifying data available Patient Education Acute Pain, Adult (more content not included)...[facility] HospitalComment on above: Result Comment: Electronically Signed By: Marylou SCHUSTER, Everett Bee\.cyrus\Date and Time Signed: 02/18/25 14:44 EDTCT Abdomen/Pelvis w/ + w/o Contraston [id number] Abdomen/Pelvis w/ + w/o ContrastExam Date/Time: 02/04/2025 11:31 EDT Reason for Exam: [...] contrast amount in ml's: 900.00 Ordering Provider: Everett Hickman FINAL REPORT Dictated: 02/05/2025 10:25 am Aydin Darden MD Signed (Electronic Signature): 02/05/2025 10:25 am Signed by: Aydin Darden MD Transcribed by: GREGORIO Technologist: Brian [facility] Head or Brain w/o Contraston [id number] Head or Brain w/o ContrastExam Date/Time: 02/04/2025 11:26 EDT Reason for Exam: [...] reasonably achievable. Technical Comments: Report Ordering Provider: Everett Hickman FINAL REPORT Dictated: 02/05/2025 10:18 am Aydin Darden MD Signed (Electronic Signature): 02/05/2025 10:18 am Signed by: Aydin Darden MD Transcribed by: GREGORIO Technologist: Long[facility], AvonCreatinineon [id number] [Mass/Vol]1.3 mg/dLNormal0.5-1.3Fisher [facility] Comment on above:Performed By: #### [id number] #### Carson [facility] [address], [place] [address]hMMVij [id number] mL/min/1.73 m2Low>=59[facility], AvonComment on above:Performed By: #### [id number] #### Carson [facility] [address], [place] [id number] [id number] lab results from 12/31/2024: MD Isauro Woods MA BN P is very low [...] SOB and/or LE edema/weight gain. She verbalized understanding.[facility] HospitalAmbulatory Visit Summaryon [id number] Visit SummaryAmbulatory Visit Summary DONG WHITMORE :1950 Visit Date:01/20/2025 [...] disease Your Care Team Attending Physician - Everett Hickman MD. Primary Care Physician - Everett Hickman MD. This Is Your Medications List sitagliptin (Januvia [...] 30 mg Tab) potassium chloride (Potassium Chloride (Ood-Ohqy-Xvw M20) 20 mEq oral tablet, extended release) simvastatin (simvastatin 40 mg Tab) sodium bicarbonate (sodium bicarbonate 650 mg Tab) tizanidine (tiZANidine 4 mg Tab) Procedures Performed Percutaneous implantation of neurostimulator electrode array, epidural (04/03/2024), TOE AMPUTATION(11/16/2018), ESWL - Extracorporeal shockwave lithotripsy for renal [...] Follow-Up Appointments Monday 1:40 PM EDT With: Marylou SCHUSTER, Everett Bee Where: [address] [address]- 2024 8:40 AM EDT With: Where: [address] [id number]- 2024 8:00 AM EDT With: Where: [address] [address]- Monday 9:15 AM EDT With: LATRICIA SCHUSTER, Araceli Treadwell Where: [facility] [place] [address], [address] [place] [address]- You Need to Complete the [...] Will Contact You Regarding These Appointments [facility] [place], Audiology, 01/20/25 9:54:00 EDT, Balance problem BPH with obstruction/lower urinary tract symptoms Benign hypertension with chronic kidney disease, stage III Calculus of gallbladder without cholecystitis without obstruction Complex renal cyst [facility] [place] Referral, ENT, 01/20/25 9:54:00 EDT, Balance problem BPH with obstruction/lower urinary tract symptoms Benign hypertension with chronic kidney disease, stage III Calculus of gallbladder without cholecystitis without obstruction Complex renal cyst Medications What How Much When Why Instructions Unchanged sitagliptin ( (more content not included)...[facility] Medicine Office/Clinic Noteon [id number] Medicine Office/Clinic NoteFaboston medical center Medicine Office/Clinic Note Chief Complaint 3m follow [...] completed 11/27/24. FibroScan ordered but unable to performdue to body habitus. Currently discussing possible Rexulti script. Did see Nanette Barajas [facility] CONSULTANT 12/04/24 due to Rt elbow pain. Given Medrol Dosepak. XR ordered. Completed 12/04/24. Discussed referral to ortho. Pt had fallen again & returned to ER 12/05/24. Did see [facility] pain management 01/13/25. Still having pain in toe. 04/17. Questions/Concerns: Needs refills of Januvia & Venlafaxine. Main concern today is loss of balance & difficulty walking. History of Present Illness The patient is a 74-year-old male presenting with dizziness and balance problems that have intensified over the last several months. He is experiencing significant difficulty in independent mobility,which started approximately three months ago without an apparent cause. He previously engaged in physical therapy, which was halted due to shoulder discomfort. Concomitantly, he reports persistent tinnitus, which he attributes as a problem relevant to Meniere disease, alongside a historical buzzingin the ears that may impact hearing. He has experienced falls, including an incident resulting in aright elbow injury, already assessed by Dr. Jasmine. The patient mentions chronic right-sided weakn ess, linking it to his balance issues and [...] level of consciousness appropriate for age, CN II- XII intact, motor strength equal & normal bilaterally, [...] with current medications in outpatient record [id number] [facility] [place] Ref[place] [facility] [place]ulatory Referral Influenza [...] tract symptoms (N40.1: B (more content not included)...[facility] HospitalComment on above:Result Comment: Electronically Signed By: Marylou SCHUSTER, Everett Hanleybr\Date and Time Signed: 01/20/25 10:09 EDTGastroenterology Office/Clinic Noteon [id number] Office/Clinic NoteGastroenterology Office/Clinic Note Chief Complaint Checkup HPI Staff [...] neuropathy Complex renal cyst Coronary arteriosclerosis in [place] artery Dizziness Dizziness and giddiness Erythema of [...] of neurostimulator electrode array, epidural (04/03/2024), TOE AMPUTATION(11/16/2018), ESWL - Extracorporeal shockwave lithotripsy for renal [...] kidney, Heel spur....., H (more content not included)...Normal [facility], AvonComment on above:Result Comment: Electronically Signed By: Candace SCHUSTER, Tomi Sheffield\.br\Date and Time Signed: 01/17/25 12:33 EDTReminderson [id number] From: Concepcion Loaiza I To: Concepcion Loaiza I; Sent: 01/02/2025 08:18:36 EDT Show up: 01/06/2025 08:00:00 EDT Subject: Bridgethankadrianaarun Reminder/Recall Addendum by Concepcion Loaiza I on January 02, 2025 08:18:14 EDT Placing reminder in chart. From: Candace SCHUSTER, Tomi Sheffield To: Concepcion Loaiza I; Sent: 01/01/2025 11:06:40 EDT Subject: General Message Caller Name: DONG WHITMORE; Caller Number: Ray , M Please remind me next week to make sure to send rezdiffra or not for this patientOhioHealth [facility] HospitalAmbulatory Visit Summaryon 01-01-2025 Ambulatory Visit SummaryAmbulatory Visit Summary DONG WHITMORE :1950 Visit Date:01/01/2025 Ambulatory Visit Instructions Your Diagnosis Fatty liver Calculus of gallbladder without cholecystitis without obstruction GERD (gastroesophageal reflux disease) Your Care Team Attending Physician - Tomi Maria MD Primary Care Physician - Everett Hickman MD This Is Your Medications List [...] 30 mg Tab) potassium chloride (Potassium Chloride (Bbj-Arof-Lne M20) 20 mEq oral tablet, extended release) simvastatin (simvastatin 40 mg Tab) sitagliptin (Januvia 100 mg Tab) sodium bicarbonate (sodium bicarbonate 650 mg Tab) tizanidine (tiZANidine 4 mg Tab) venlafaxine (venlafaxine 75 mg Tab) Procedures Performed Percutaneous implantation of neurostimulator electrode array, epidural (04/03/2024), TOE AMPUTATION(11/16/2018), ESWL - Extracorporeal shockwave lithotripsy for renal [...] Follow-Up Appointments Monday 9:30 AM EDT With: Marylou SCHUSTER, Everett Bee Where: [address] [address] 2024 8:00 AM EDT With: Where: [address] [address]- Monday 9:15 AM EDT With: Araceli ROME MD Where: [facility] [address], [address] [place] [address]- Medications What How Much When Why Instructions [...] vascular disease Type 2 diabetes mellitus with [id number] chronic kidney disease and hypertension Erythema of [...] mg sublingual Tab) Contact (more content not included)...[facility] HospitalMR ELBOW RIGHT WITHOUT CONTRASTon [id number] ELBOW RIGHT WITHOUT CONTRASTEXAMINATION: MR ELBOW RIGHT WITHOUT CONTRAST HISTORY: ORDERING [...] ALBRIGHT on MonDec 20, 2024 9:22:13 AM EDTAdams County Regional Medical CenterComment on above:Order Comment: PT/FAX Injury/Trauma or Illness?:Illness/Other How long have you had these symptoms (acute/chronic)?:Chronic Reason for exam?:Right elbow pain Type of Exam?:Initial Additional signs and symptoms?:nOffice Visiton [id number]-up [id number] Dong Whitmore 1950 M Date Provider Department Center 12/18/2024 [id number]-JGLGBNESSENCE LAM [facility] Family History Problem Relation Age of Onset Coronary artery disease Other Diabetes Other Family Status - Relation Status Age at Other Level of Service:27044 AR OFFICE/OUTPATIENT ESTABLISHED MOD MDM 30 MIN Reason for Visit and Comments: Coronary Artery Disease [187] Hyperlipidemia [182] - Had routine labs with lipid panel in Oct 2024. Hypertension [557069] Pre-op Exam [458115] - Needs surgery clearance with Dr. Jasmine. Shortness of Breath [183610] - SOB worsening over the couple of monthsNormal [facility] Miscellaneous-LCon [id number] MiscellaneousCOMMENTInvalid Interpretation [facility] Comment on above:Result Comment: Test Ordered: [id number] Enhanced Liver Fibrosis (ELF) ELF(TM) Score 11.00 [...] trials. J Hepatol. 2020 Apr;73(1):26-39. Performed at: [facility] [id number] PhD Faye Honeycuttformed By: #### [id number] #### [facility] [address], [place] [address]Xgwqcaizgx Visit Summaryon [id number] Visit Summary Ambulatory Visit Summary DONG WHITMORE :1950 Visit Date:12/04/2024 Ambulatory Visit Instructions Your Diagnosis Injury of right elbow Right elbow pain BMI 40.0-44.9, adult Non-smoker Your Care Team Attending Physician - Nanette Do Primary Care Physician - Everett Hickman MD This Is Your Medications List [facility] Prescription (Eric Prather, 5 years.) [...] 30 mg Tab) potassium chloride (Potassium Chloride (Wuk-Oywr-Brk M20) 20 mEq oral tablet, extended release) simvastatin (simvastatin 40 mg Tab) sitagliptin (Januvia 100 mg Tab) sodium bicarbonate (sodium bicarbonate 650 mg Tab) tizanidine (tiZANidine 4 mg Tab) venlafaxine (venlafaxine 75 mg Tab) Procedures Performed Percutaneous implantation of neurostimulator electrode array, epidural (04/03/2024), TOE AMPUTATION(11/16/2018), ESWL - Extracorporeal shockwave lithotripsy for renal [...] Appointments Monday 9:00 AM EST With: Where: [facility] Monday 9:45 AM EDT With: Candace SCHUSTER, Tomi Sheffield Where: [facility] [address] [place] [address] [address] [place] [address]- Monday 10:00 AM EDT With: Marylou SCHUSTER, Everett Bee Where: [address] [address] 8:00 AM EDT With: Where: [address] [address]- Monday 9:15 AM EDT With: LATRICIA SCHUSTER, Araceli Treadwell Where: [facility] [place] [address], [address] [place] [address]- Medications What How Much When Why Instructions New methylPREDNISolone (Medrol 4 mg Tab) 1 Packets By Mouth As Directed Injury of right elbow Rightelbow pain BMI 40.0-44.9, adult Non-smoker Duration: 6 Days as directed on package labeling Pickup at [facility]/pharmacy #[id number] Unchanged acarbose (acarbose 25 mg oral tablet) [...] vascular disease Type 2 diabetes mellitus with aghao5z chronic kidney disease and hypertension Erythema of [...] Tab) Unchanged omega-3 polyunsaturate (more content not included)...[facility] Medicine Office/Clinic Noteon [id number] Medicine Office/Clinic NoteFaboston medical center Medicine Office/Clinic Note HPI Staff Dong is a 74 year old male presenting for pain Pain characteristics: Pain location: right elbow Intensity: 2/10 then with use 07/18 Onset: 2 weeks Medication used: Bengay, horse [...] ray. pt prefers to go to [facility]. will call him with results. medrol dose pack sent in. pt declines meloxicam or any other pain medication. encouraged him to use heat. he states ice is not helping at all. follow up with Dr. Hickman 2 weeks Ordered: methylPREDNISolone, = 1 packet(s), Oral, As Directed, as directed on package labeling, X 6 day(s), # 21 tab(s), Refills(s) 0, Pharmacy: [facility]/pharmacy #[id number], 168, cm, 12/04/24 13:51:00 EST, Height/Length Dosing, 122.9, kg, 12/04/24 13:51:00 EST, Weight Dosing 2. Right elbow pain (M25.521: Pain in right elbow) medrol dose pack Ordered: methylPREDNISolone, = 1 packet(s), Oral, As Directed, as directed on package labeling, X 6 day(s), # 21 tab(s), Refills(s) 0, Pharmacy: [facility]/pharmacy #[id number], 168, cm, 12/04/24 13:51:00 EST, Height/Length Dosing, 122.9, kg, 12/04/24 13:51:00 EST, Weight Dosing 3. BMI 40.0-44.9, adult (Z68.41: Body mass index [BMI] 40.0-44.9, adult) BMI education given Ordered: methylPREDNISolone, = 1 packet(s), Oral, As Directed, as directed on package labeling, X 6 day(s), # 21 tab(s), Refills(s) 0, Pharmacy: [facility]/pharmacy #[id number], 168, cm, 12/04/24 13:51:00 EST, Height/Length Dosing, 122.9, kg, 12/04/24 13:51:00 EST, Weight Dosing 4. Non-smoker (Z78.9: Other specified health status) continue not smoking Ordered: methylPREDNISolone, = 1 packet(s), Oral, As Directed, as directed on package labeling, X 6 day(s), # 21 tab(s), Refills(s) 0, [id number] 168, cm, 12/04/24 13:51:00 EST, [...] neuropathy Complex renal cyst Coronary arteriosclerosis in [place] artery Dizziness Dizziness and giddiness Erythema of [...] of neurostimulator electrode array, epidural (04/03/2024), TOE AMPUTATION(11/16/2018), ESWL - Extracorporeal shockwave lithotripsy for renal calculus (06/07/2018), Cystoscopic removal of ureteric stent (01/10/2017), Cystoscopy and retrograde pyelography (12/05/2016), y (more content not included)...[facility] HospitalComment on above:Result Comment: Electronically Signed By: Nanette Do\.cyrus\Date and Time Signed: 12/04/24 14:24 ESTLab Miscellaneous-LCon [id number] [id number] Interpretation [facility] HospitalComment on above:Performed By: #### [id number] #### [facility] Laboratory [address], [place] [address]Gsho NameELFInvalid Interpretation [facility] HospitalComment on above:Performed By: #### [id number] #### [facility] Laboratory [address], [place] [address]Bdvwhnt Narrative Noteon [id number] Narrative Note Nursing Narrative Note Unable to obtain accurate fibroscan d/t body habitus.[facility] HospitalAmbulatory Visit Summaryon 35-62-1156Vuzygivrby Visit SummaryAmbulatory Visit Summary HAIM DONG A :1950 Visit Date:11/27/2024 Ambulatory Visit Instructions Your Diagnosis Fatty liver Calculus of gallbladder without cholecystitis without obstruction GERD (gastroesophageal reflux disease) Your Care Team Attending Physician - Candace SCHUSTER, Tomi Sheffield Primary Care Physician - Everett Hickman MD This Is Your Medications List [...] 30 mg Tab) potassium chloride (Potassium Chloride (Oty-Hnaw-Egr M20) 20 mEq oral tablet, extended release) simvastatin (simvastatin 40 mg Tab) sitagliptin (Januvia 100 mg Tab) sodium bicarbonate (sodium bicarbonate 650 mg Tab) tizanidine (tiZANidine 4 mg Tab) venlafaxine (venlafaxine 75 mg Tab) Procedures Performed Percutaneous implantation of neurostimulator electrode array, epidural (04/03/2024), TOE AMPUTATION(11/16/2018), ESWL - Extracorporeal shockwave lithotripsy for renal [...] Appointments Monday 9:00 AM EST With: Where: [facility] Services Monday 10:00 AM EDT With: Marylou SCHUSTER, Everett Bee Where: [address] [address] 8:00 AM EDT With: Where: [address] [address]- Monday 9:15 AM EDT With: LATRICIA SCHUSTER, Araceli Treadwell Where: [facility] [address] [place] [address]- You Need to Complete the Following Lab Miscellaneous-LC, Not Specified, Routine collect, ELF, 11/27/24, Order for future visit, Lab Collect, Fatty liver, Print Label By Order Location, [id number] Medications What How Much When Why Instructions [...] vascular disease Type 2 diabetes mellitus with izorh6g chronic kidney disease and hypertension Erythema of skin BMI 40.0-44.9, adult Class 3 severe obesity due to excess calories with body ma (more content not included)...[facility] HospitalGastroenterology Office/Clinic Noteon [id number] Office/Clinic NoteGastroenterology Office/Clinic Note Chief Complaint Fatty Liver HPI [...] NO ACUTE CHANGES US RUQ 10/22/24 @ [place]: IMPRESSION: 1. Cholelithiasis. 2. Mild fatty infiltration [...] 84.1 fL (12/29/23) Chloride: 108 mmol/L (09/09/24) Republic Absolute: 0.4 E9/L (12/29/23) CO2: 26 mmol/L (09/09/24) [place] Auto: 7.1 % (12/29/23) Creatinine: 1.3 mg/dL [...] neuropathy Complex renal cyst Coronary arteriosclerosis in [place] artery Dizziness Dizziness and giddiness Erythema of [...] Urgency of urination Vitamin (more content not included)...[facility] HospitalComment on above:Result Comment: Electronically Signed By: Tomi Maria MD\.br\Date and Time Signed: 11/27/24 10:32 EST\.br\Electronically Co-Signed By: Helena Gomez MA\.br\Date and Time Co-Signed: 11/27/24 10:32 EST Ambulatory Visit Summaryon [id number] Visit SummaryAmbulatory Visit Summary DONG WHITMORE :1950 Visit Date:11/18/2024 Ambulatory Visit Instructions Your Diagnosis 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 BMI 45.0-49.9, adult Obesity, morbid, BMI 40.0-49.9 Nonsmoker Laceration of arm Your Care Team Attending Physician - Everett Hickman MD Primary Care Physician - Everett Hickman MD This Is Your Medications List [facility] Prescription (Eric Prather, 5 years.) [...] 30 mg Tab) potassium chloride (Potassium Chloride (Eva-Bcnj-Nbt M20) 20 mEq oral tablet, extended release) pregabalin (Lyrica 75 mg Cap) simvastatin (simvastatin 40 mg Tab) sitagliptin (Januvia 100 mg Tab) sodium bicarbonate (sodium bicarbonate 650 mg Tab) tizanidine (tiZANidine 4 mg Tab) venlafaxine (venlafaxine 75 mg Tab) Procedures Performed Percutaneous implantation of neurostimulator electrode array, epidural (04/03/2024), TOE AMPUTATION(11/16/2018), ESWL - Extracorporeal shockwave lithotripsy for renal [...] EST With: Candace SCHUSTER, Tomi Sheffield Where: [facility] [address] [facility] [address] [place] [address]- Monday 10:00 AM EDT With: Marylou SCHUSTER, Everett Bee Where: [address] [address]24 8:00 AM EDT With: Where: [address] [address]- Monday 9:15 AM EDT With: LATRICIA SCHUSTER, Araceli Treadwell Where: [facility] [address] [place] [address]- Medications What How Much When [...] vascular disease Type 2 diabetes mellitus with pibjx2x chronic kidney disease and hypertension Erythema of [...] Every day Unchanged potassium chloride (Potassium Chloride (Ssh-Jygz-Hyj M20) 20 mEq oral tablet, extended release (more content not included)...[facility] Medicine Office/Clinic Noteon [id number] Medicine Office/Clinic NoteFaboston medical center Medicine Office/Clinic Note Chief Complaint Suture Removal [...] to the inability to adjust the dose ef fectively. Additionally, the patient has a history of morbid obesity, with a BMI of 45.0- 49.9, and presents for suture removal from a [...] level of consciousness appropriate for age, CN II- XII intact, motor strength equal & normal bilaterally, [...] a comprehensive weight management plan, including dietary modificationsand physical activity tailored to the patient's capabilities. [...] removal of the upper arm, which included qvnkecnld-dw-bjvnjo mattress sutures. Thearea shows good signs of healing. No infection [...] is relevant due to ongoing discomfort in thearm, contributing to the overall pain experience. I discussed the ongoing management of the patient's toe pain and the lack of sleep due to discomfort. We reviewe (more content not included)...[facility] HospitalComment on above:Result Comment: Electronically Signed By: Marylou SCHUSTER, Everett Tejada\Date and Time Signed: 11/18/24 09:32 ESTAmbulatory Visit Summaryon [id number] Visit SummaryAmbulatory Visit Summary HAIM DONG A :1950 Visit Date:11/12/2024 Ambulatory Visit Instructions Your Diagnosis BMI 45.0-49.9, adult Obesity, morbid, BMI 40.0-49.9 Nonsmoker Your Care Team Attending Physician - Everett Hickman MD Primary Care Physician - Everett Hickman MD This Is Your Medications List [facility] Prescription (Eric Prather, 5 years.) [...] 30 mg Tab) potassium chloride (Potassium Chloride (Azc-Hfme-Wec M20) 20 mEq oral tablet, extended release) pregabalin (Lyrica 75 mg Cap) simvastatin (simvastatin 40 mg Tab) sitagliptin (Januvia 100 mg Tab) sodium bicarbonate (sodium bicarbonate 650 mg Tab) tizanidine (tiZANidine 4 mg Tab) venlafaxine (venlafaxine 75 mg Tab) Procedures Performed Percutaneous implantation of neurostimulator electrode array, epidural (04/03/2024), TOE AMPUTATION(11/16/2018), ESWL - Extracorporeal shockwave lithotripsy for renal [...] Follow-Up Appointments Monday 9:00 AM EST With: Everett Hickman MD Where: [address] [address]- Monday 9:30 AM EST With: Candace SCHUSTER, Tomi Sheffield Where: [facility] [address] [place] [address] [address] [facility] [address] [place] [address]- Monday 10:00 AM EDT With: Everett Hickman MD Where: [address] [address] 2024 8:00 AM EDT With: Where: [address] [id number]- Monday 9:15 AM EDT With: Araceli ROME MD Where: [facility] [address] [facility], [address] [place] [address]- Medications What How Much When [...] vascular disease Type 2 diabetes mellitus with rqojo0y chronic kidney disease and hypertension Erythema of [...] day Unchanged potassium chlorid (more content not included)...[facility] Medicine Office/Clinic Noteon [id number] Medicine Office/Clinic NoteFaboston medical center Medicine Office/Clinic Note Chief Complaint ER follow up The patient presents with dizziness in the morning and stiffness affecting mobility. HPI Staff Pt presents today for ER follow up. Hospital: [facility] Visit date: 11/09/2024 Symptoms the patient [...] level of consciousness appropriate for age, CN II- XII intact, motor strength equal & normal bilaterally, [...] orthostatic symptoms. Emphasis on slow positional changes uponwaking. Further Daniel-Hallpike maneuver to be considered if symptoms persist, with continued evaluation by an research administrator pending referral completion. 3. Weakness (R53.1: Weakness) Continue with PT. Will address further once PT is done. May need Ortho. 4. BMI 45.0-49.9, adult (Z68.42: Body mass index [BMI] 45.0-49.9, adult) BMI education added. 5. Obesity, morbid, BMI 40.0-49.9 (E66.01: Morbid (severe) obesity due to excess calories) Continued encouragement of weight management and healthy lifestyle intervention. Monitoring throughcontinued sessions with the physical therapist. 6. Nonsmoker (Z78.9: Other specified health status) Please continue to not smoke. 74-year-old male with history of morbid obesity presenting with morning dizziness and stiffness affecting mobility. The dizziness aligns with orthostatic hypotension, described during positional changes, while stiffness resembles characteristics potentially linked with arthritis or musculoskeletal w eakness. 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 Primary Care Physician - Everett Hickman MD. This Is Your Medications List [facility] Prescription (Eric Prather, 5 years.) [...] 30 mg Tab) potassium chloride (Potassium Chloride (Wsw-Cxen-Tka M20) 20 mEq oral tablet, extended release) pregabalin (Lyrica 75 mg Cap) simvastatin (simvastatin 40 mg Tab) sitagliptin (Januvia 100 mg Tab) sodium bicarbonate (sodium bicarbonate 650 mg Tab) tizanidine (tiZANidine 4 mg Tab) venlafaxine (venlafaxine 75 mg Tab) Procedures Performed Percutaneous implantation of neurostimulator electrode array, epidural (04/03/2024), TOE AMPUTATION(11/16/2018), ESWL - Extracorporeal shockwave lithotripsy for renal [...] Follow-Up Appointments Monday 10:00 AM EDT With: Marylou SCHUSTER, Everett Bee Where: [place] [address] 2024 8:00 AM EDT With: Where: [facility] [place] [address] [place] [address]- Monday 9:15 AM EDT With: LATRICIA SCHUSTER, Araceli Treadwell Where: [facility] [address], [address] [place] [address]- Medications What How Much When Why Instructions [...] vascular disease Type 2 diabetes mellitus with yxxxz2a chronic kidney disease and hypertension Erythema of [...] Every day Unchanged potassium chloride (Potassium Chloride (Kop-Xfvp-Ett M20) 20 mEq oral tablet, ex (more content not included)...[facility] Office/Clinic Noteon [id number] Medicine Office/Clinic NoteArbour-Hri Hospital Medicine Office/Clinic Note Chief Complaint Follow up [...] improvement. The patient describes an acute episode ofsevere dizziness last that lasted the entire day and was debilitating. Prior to this, episodes of dizziness were milder and sporadic. The underlying coronary arteriosclerosis in [place] arteries, benign hypertension with chronic kidney disease, stage III, and type 2 diabetes mellitus with hy perlipidemia could be contributing factors to his current condition. The patient suspects disuse asa cause of the leg weakness, as he [...] level of consciousness appropriate for age, CN II- XII intact, motor strength equal & normal bilaterally, speech normal, balance issues noted, dizziness reported Abdomen: Soft, Non-tender, Non-distended, + Bowel sounds, cholelithiasis present Assessment/Plan 1. Coronary arteriosclerosis in [place] artery (I25.10: Atherosclerotic heart disease of [place] coronary artery without angina pectoris) Diet and exercise. No CP at this time. 2. Mixed hyperlipidemia (E78.2: Mixed hyperlipidemia) Continue on statins as before. 3. Long-term insulin use (Z79.4: MCC (current) use of insulin) Continue on Insulin. [...] syndrome or an i (more content not included)...NormalSelect Medical [facility], AvonComment on above:Result Comment: Electronically Signed By: Everett Hickman MD\.br\Date and Time Signed: 11/04/24 11:42 ESTU Microalbon 07-02-6228Nwpigdl DL <= 20 mg/L (U) [Mass/Vol]4.0 mg/dLHigh0.0-1.9[facility], AvonComment on above: Performed By: #### [id number] ####[facility] [address] [place], [place] [address]Bxqsjmghes Visit Summaryon 07-45-9697Wxnphvdfjl Visit SummaryAmbulatory Visit Summary DONG WHITMORE :1950 Visit Date:10/15/2024 [...] severity Your Care Team Attending Physician - Everett Hickman MD Primary Care Physician - Everett Hickman MD This Is Your Medications List [facility] Prescription (Eric Prather, 5 years.) [...] 30 mg Tab) potassium chloride (Potassium Chloride (Ebq-Iitr-Ngv M20) 20 mEq oral tablet, extended release) pregabalin (Lyrica 75 mg Cap) simvastatin (simvastatin 40 mg Tab) sitagliptin (Januvia 100 mg Tab) sodium bicarbonate (sodium bicarbonate 650 mg Tab) tizanidine (tiZANidine 4 mg Tab) venlafaxine (venlafaxine 75 mg Tab) Procedures Performed Percutaneous implantation of neurostimulator electrode array, epidural (04/03/2024), TOE AMPUTATION(11/16/2018), ESWL - Extracorporeal shockwave lithotripsy for renal [...] 2024 10:40 AM EST With: Where: [address] [address]24 10:30 AM EST With: Everett Hickman MD Where: [address] [address]24 8:00 AM EDT With: Where: [address] [address]- Monday 9:15 AM EDT With: LATRICIA SCHUSTER, Araceli Treadwell Where: [facility] [place] [facility] [address], [address] [place] [address]- Medications What How Much When [...] vascular disease Type 2 diabetes mellitus with xrwpz6x chronic kidney disease and hypertension Erythema of [...] mg Tab) 1 Tablets (more content not included)...[facility] Medicine Office/Clinic Note on 50-56-5024Pvxlwp Medicine Office/Clinic NoteFaboston medical center Medicine Office/Clinic Note Chief Complaint 6m follow [...] no concerns for his chronic medical problems. Patient'sonly concern is for this abdominal pain and this ecchymotic spot on his left arm. On reviewing labshis INR was elevated. Abdominal pain is in [...] level of consciousness appropriate for age, CN II- XII intact, motor strength equal & normal bilaterally, speech normal Abdomen: Soft, Tender, Non-distended, + Bowel sounds Assessment/Plan 1. BMI 40.0-44.9, adult (Z68.41: Body mass index [BMI] 40.0-44.9, adult) BMI education added Ordered: CBC w/ Auto Diff Comprehensive Metabolic Panel HgbA1c Lipid Panel Microalbumin Level Urine PT & PTT Urine Microalbumin/Creatinine Ratio US Liver 2. Obesity, morbid, BMI 40.0-49.9 (E66.01: Morbid (severe) obesity due to excess calories) Diet and exercise advised Ordered: CBC w/ Auto Diff Comprehensive Metabolic Panel HgbA1c Lipid Panel Microalbumin Level Urine PT & PTT Urine Microalbumin/Creatinine Ratio US Liver 3. Nonsmoker (Z78.9: Other specified health status) Please continue not to smoke Ordered: CBC w/ Auto Diff Comprehensive Metabolic Panel HgbA1c Lipid Panel Microalbumin Level Urine PT & PTT Urine Microalbumin/Creatinine Ratio US Liver 4. Acquired absence of right great toe (Z89.411: Acquired absence of right great toe) Still absent Ordered: CBC w/ Auto Diff Comprehensive Metabolic Panel HgbA1c Lipid Panel Microalbumin Level Urine PT & PTT Urine Microalbumin/Creatinine Ratio US Liver 5. Chronic painful diabetic neuropathy (E11.40: Type 2 diabetes mellitus with diabetic neuropathy, unspecified) Well-controlled. No concerns today. Ordered: CBC w/ Auto Diff Comprehensive Metabolic Panel HgbA1c Lipid Panel Microalbumin Level Urine PT & PTT Urine Microalbumin/Creatinine Ratio US Liver 6. Major depressive disorder, 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 (F32.5: Major depressive disorder, single episode, in full remission) Improved. Ordered: CBC w/ Auto Diff Comprehensive Metabolic Panel HgbA1c Lipid Panel Microalbumin Level Urine PT & PTT Urine Microalbumin/Creatinine Ratio US Liver 7. Stage 3a chronic kidney disease (N18.31: Chronic kidney disease, stage 3a) Labs ordered. Ordered: CBC w/ Auto Diff Comprehensive Metabolic Panel HgbA1c Lipid Panel Microalbumin Level Urine PT & PTT Urine Microalbumin/Creatinine Ratio 8. Stasis ulcer (I83.009: Varicose veins of unspecified lower extremity with ulcer of unspecified site) Resolved. Will remove out of the chart. Ordered: CBC w/ Auto Diff Comprehensive Metabolic Panel HgbA1c Lipid Panel Microalbumin Level Urine PT & PTT Urine Microalbumin/Creatinine Ratio 9. Type 2 diabetes mellitus with peripheral vascular disease (E11.51: Type 2 diabetes mellitus withdiabetic peripheral angiopathy without gangrene) Blood sugars have been better controlled. Has had no concerns. Ordered: CBC w/ Auto Diff Comprehensive Metabolic Panel HgbA1c Lipid Panel Microalbumin Level Urine PT & PTT Urine Microalbumin/Creatinine Ratio 10. Fatty (change of) liver, not elsewhere classified (K76.0) Schedule ultrasound to evaluate liver size and pathology; address potential causes of elevated INR and liver discomfort. Will follow-up in 1 month. Ordered: CBC w/ Auto Diff Comprehe (more content not included)...[facility] HospitalComment on above:Result Comment: Electronically Signed By: Marylou SCHUSTER, Everett E.\.br\Date and Time Signed: 10/15/24 13:10 ESTCMPon 21-62-8235Iiiyphv [Mass/Vol]4.3 g/dL Normal3.3-5.0[facility], AvonComment on above:Performed By: #### [id number] #### [facility] [address], [place] [address]Hwhyuqj/Globulin (S) [Mass conc ratio]1.9Vyveqo2.1-2.2FOhio Valley Surgical HospitalComment on above:Performed By: #### [id number] #### [facility] [address], [place] [address]DSR [Catalytic activity/Vol]73 Int._Unit/NCqrbzt40-34UtutsdSelect Medical Cleveland Clinic Rehabilitation Hospital, AvonComment on above:Performed By: #### [id number] #### [facility] [address], [place] [address]IYN No additional P-5'-P [Catalytic activity/Vol]23 Int._Unit/L Normal6-46[facility], AvonComment on above:Performed By: #### [id number] #### [facility] [address], [place] [address]Sfxzo gap [Moles/Vol]12 mmol/LNormal6-16[facility], AvonComment on above:Performed By: #### [id number] #### [facility] [address], [place] [address]NHO [Catalytic activity/Vol]25 Int._Unit/LNormal5-43[facility], AvonComment on above:Performed By: #### [id number] #### [facility] [address], [place] [address]Pfelidgvm [Mass/Vol]0.5 mg/dLNormal0.0-1.1FOhio Valley Surgical HospitalComment on above:Performed By: #### [id number] #### [facility] [address], [place] [address]Ftxpreh [Mass/Vol]9.2 mg/dLNormal8.9-11.1FOhio Valley Surgical HospitalComment on above:Performed By: #### [id number] #### [facility] [address], [place] [address]Ixvrlrsp [Moles/Vol]108 mmol/KWfyqnn744-114PndpaoSelect Medical Cleveland Clinic Rehabilitation Hospital, AvonComment on above:Performed By: #### [id number] #### [facility] [address], [place] [address]LW1 [Moles/Vol]26 mmol/EYsdbfs58-45GfjgbzSelect Medical [facility] [place] Comment on above:Performed By: #### [id number] #### [facility] [address], [place] [address]Gmcockwypf [Mass/Vol]1.3 mg/dLNormal0.5-1.3FOhio Valley Surgical HospitalComment on above:Performed By: #### [id number] #### [facility] [address], [place] [address]Wcehhwmt (S) [Mass/Vol]2.5 g/dLNormal1.4-4.0[facility], AvonComment on above:Performed By: #### [id number] #### [facility] [address], [place] [address]Hnnmsrz [Mass/Vol]137 mg/yTBflxiz68-669KdxwlwSelect Medical Cleveland Clinic Rehabilitation Hospital, AvonComment on above:Performed By: #### [id number] #### [facility] [address], [place] [address]Htsfdnizv [Moles/Vol]4.7 mmol/LNormal3.5-5.3FOhio Valley Surgical HospitalComment on above:Performed By: #### [id number] #### [facility] [address], [place] [address]Puixneh [Mass/Vol]6.8 g/dLNormal6.0-7.8[facility], AvonComment on above:Performed By: #### [id number] #### [facility] [address], [place] [address]Wwbdhn [Moles/Vol]141 mmol/XRflods031-921RlvcmySelect Medical Cleveland Clinic Rehabilitation Hospital, AvonComment on above:Performed By: #### [id number] #### [facility] [address], [place] [address]Fjmp nitrogen [Mass/Vol]28 mg/dLHigh5-21[facility], AvonComment on above:Performed By: #### [id number] #### [facility] [address], [place] [address]Xsbx nitrogen/Creatinine [Mass ratio]22 No BzrpsCvog39-46ZirnukSelect Medical Cleveland Clinic Rehabilitation Hospital, AvonComment on above:Performed By: #### [id number] #### [facility] [address], [place] [address]Abuplzupnwz 19-39-7925Brhikbkam [Mass/Vol]1.8 mg/dLNormal 1.3-2.4FOhio Valley Surgical HospitalComment on above:Performed By: #### [id number] #### [facility] [address], [place] [address]pSXIfs 18-23-4773mRID20 mL/min/1.73 m2Low>=59[facility], AvonComment on above:Performed By: #### [id number] #### [facility] [address] [place] [address]Uyveva Medicine Office/Clinic Noteon 17-44-3586Euqvnu Medicine Office/Clinic NoteFami Medicine Office/Clinic Note Chief Complaint Persistent feelings [...] or turning around too quickly. The patient deniesdizziness but notes that stooping or bending over exacerbates the imbalance. He also reports a concu rrent issue with his toe that exacerbates when [...] includes morbid obesity with a BMI of 40.0- 44.9 and he is a nonsmoker. Review of [...] level of consciousness appropriate for age, CN II- XII intact, motor strength equal & normal bilaterally, [...] involvement and proprioceptive complications. Consider assessment at [facility] for balance and gait evaluation. Discuss with patient about the role of inner ear and proprioceptionin balance, and recommend a detailed physical therapy [...] manage morbid obesity. Possible consultation with a rehabilitation supervisor for weight management strategies. Ordered: Body [...] burning in his legs is fro (more contentnot included)...[facility] HospitalComment on above:Result Comment: Electronically Signed By: Marylou SCHUSTER, Everett Sandhu.cyrus\Date and Time Signed: 09/09/24 15:07 KTX85rk [id number] with Kat, the BP readings at end of report were from the new BP monitor and his BP in office compared to his new cuff was 130s/70s. Based off of the other readings, recommend switching his metoprolol to carvedilol, start at 6.25mg BID. Follow-up 2-3 months. THanksNormalUniTrinity Health System West CampusAmbulatory Visit Summaryon 31-03-9522Ugwbobwhix Visit SummaryAmbulatory Visit Summary DONG WHITMORE :1950 Visit Date:08/15/2024 Ambulatory Visit Instructions Your Diagnosis Major depressive disorder, 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 BMI 40.0-44.9, adult, Body mass index [BMI] 40.0-44.9, adult Morbid obesity with BMI of 40.0-44.9, adult Nonsmoker Your Care Team Attending Physician - Everett Hickman MD Primary Care Physician - Everett Hickman MD This Is Your Medications List [facility] Prescription (Handicap Placlizzie, 5 years.) acarbose (acarbose [...] 30 mg Tab) potassium chloride (Potassium Chloride (Yca-Tznr-Fql M20) 20 mEq oral tablet, extended release) pregabalin (Lyrica 75 mg Cap) simvastatin (simvastatin 40 mg Tab) sitagliptin (Januvia 100 mg Tab) sodium bicarbonate (sodium bicarbonate 650 mg Tab) tizanidine (tiZANidine 4 mg Tab) venlafaxine (venlafaxine 75 mg Tab) Procedures Performed Percutaneous implantation of neurostimulator electrode array, epidural (04/03/2024), TOE AMPUTATION(11/16/2018), ESWL - Extracorporeal shockwave lithotripsy for renal [...] Monday 3:30 PM EST With: Marylou SCHUSTER, Everett Bee Where: [address] [address] 8:00 AM EDT With: Where: [address] [address]- Monday 9:15 AM EDT With: LATRICIA SCHUSTER, Araceli Treadwell Where: [facility] [address], [address] [place] [address]- Medications What How Much When Why Instructions [...] times a day Unchanged Misc Prescription (Handicap Yamikla, 5 years.) See instructions Stage 3a chronic kidney disease Type 2 diabetes mellitus with peripheral vascular disease Type 2 diabetes mellitus with qjvzf9l chronic kidney disease and hypertension Erythema of [...] Every day Unchanged potassium chloride (Potassium Chloride (Bkz-Izbw-Prw M20) 20 mEq oral tablet, extended release) 1 Tablets By Mouth Every day Unchanged pregabalin (Lyrica 75 mg Cap) 1 Capsules By Mouth 2 times a day Unchanged simvastatin (simvastatin 40 mg Tab) 1 Tablets (more content not included)...[facility] HospitalFaboston [facility] center Medicine Office/Clinic Note on 02-24-3286Vsuvmz Medicine Office/Clinic NoteFami Medicine Office/Clinic Note Chief Complaint Chronic pain [...] surgeons and a neurologist. Recent interventions include Lyrica(pregabalin) for neuropathic pain and mood stabilization, alongside tizanidine for muscle relaxation. Despite these measures, the pain persists, disrupting sleep patterns, notably with nocturnal awakenings around 2- 3 AM. The patient reports improved daytime functioning, [...] issues but notes previous irritability and frustration relatedto unresolved pain. Physical Exam Vitals & Measurements [...] level of consciousness appropriate for age, CN II- XII intact, motor strength equal & normal bilaterally, speech normal Abdomen: Soft, Non-tender, Non-distended, + Bowel sounds Assessment/Plan 1. Insomnia, unspecified (G47.00) Evaluate current sleep disturbances consequential to pain, considering adjustment of the tizanidinedosage in alignment with insomnia care standards to [...] pain with regular assessments for efficacy and sideeffects. Continue exploring pain management strategies inclusive of post-surgical feedback following orthopedic consultations. Await further evaluation from the neurology referral to manage the ongoing lumbar stenosis contribution. Orders: pregabalin, 75 mg = 1 cap(s), Oral, BID, # 60 cap(s), Refills(s) 1, Pharmacy: [facility]/pharmacy #[id number], 169, cm, 08/15/24 10:34:00 EST, Height/Length [...] diagnoses, including interactions b (more content not included)...[facility] Comment on above:Result Comment: Electronically Signed By: Marylou SCHUSTER, Everett Sandhu.br\Date and Time Signed: 08/15/24 11:26 Nayan 31-07-9779AXFSYszihl Visit (NPRC21) DONG WHITMORE ([id number]) 1950 M Date Time Provider Department 08/14/24 10:00 AM CHIQUI ROBLES NPRC21 During your visit today, we recorded the following information about you: Pulse Respiration Blood pressure Weight 59/minute 16/minute 137/69 117.2 kg Teagan Chilel MD 08/14/2024 10:51 AM Signed [facility] Neurological Dickson August 14, 2024 This is a face [...] starting Trileptal if sedation is more bothersome. Teagan Chilel MD, AMANDA August 14, 2024 10:37 AM Chiqui Robles MD 08/26/2024 4:34 PM Addendum [facility] STAFF PHYSICIAN NOTE OF PERSONAL INVOLVEMENT [...] - psychotherapy was utilized during the visit. Flkz-vy-kteh time: 86186 (16-37 mins) actual time spend in psychotherapy 18 minutes Type of therapeutic intervention:Supportive Target symptoms: Pain coping skills and Acceptance and adapting Progress/Session notes:processing Interactive Complexity: None STAFF PHYSICIAN:: Chiqui Robles MD DATE of SERVICE: 08/14/2024 Referring Provider: CHIQUI ROBLES [[id number]] Allergies As of Date: 08/14/2024 Noted Allergy [...] [E66.813, E66.01, Z68.41] Order(s):PROVIDER ORDERED FOLLOW UP [[id number]] Order #: [id number]: 1 Prescriptions as of 08/26/2024 - pregabalin (LYRICA) 75 mg capsule Take 75 mg by mouth two times a day. - memantine (NAMENDA) (more content not included)...[facility] 71-16-8255Fzpiym-up [id number] Dong Whitmore 1950 M Date Provider Department Center 08/07/2024 03980-PVIXUHESSENCE LAM DALTON [facility] Family History Problem Relation Age of Onset Coronary artery disease Other Diabetes Other Family Status - Relation Status Age at Other Level of Service:71574 AR OFFICE/OUTPATIENT ESTABLISHED MOD [facility] 30 MIN Reason for Visit and Comments: Hypertension [569776] - He brought BP log from home with him today. Readings are usually in the 130-140's systolic. Hyperlipidemia [182] Coronary Artery Disease [187] - Denies chest pain and SOB.[facility] HospitalAmbulatory Visit Summaryon 54-17-6181Azscxlfutv Visit SummaryAmbulatory Visit Summary DONG WHITMORE :1950 Visit Date:08/01/2024 Ambulatory Visit Instructions Your Diagnosis Suicidal ideation Unspecified mononeuropathy of right lower limb BMI 40.0-44.9, adult Morbid obesity with body mass index (BMI) of 40.0 or higher Nonsmoker Your Care Team Attending Physician - Everett Hickman MD Primary Care Physician - Everett Hickman MD This Is Your Medications List [...] 30 mg Tab) potassium chloride (Potassium Chloride (Edd-Lzrc-Mpi M20) 20 mEq oral tablet, extended release) simvastatin (simvastatin 40 mg Tab) sitagliptin (Januvia 100 mg Tab) sodium bicarbonate (sodium bicarbonate 650 mg Tab) Procedures Performed Percutaneous implantation of neurostimulator electrode array, epidural (04/03/2024), TOE AMPUTATION(11/16/2018), ESWL - Extracorporeal shockwave lithotripsy for renal [...] Follow-Up Appointments 2023 10:30 AM EST With: Everett Hickman MD Where: [address] [address]- Monday 3:30 PM EST With: Everett Hickman MD Where: [address] [address]- 2024 8:00 AM EDT With: Where: [address] [address]- Monday 9:15 AM EDT With: LATRICIA SCHUSTER, Araceli Treadwell Where: [facility] [address], [address] [place] [address]- Someone Will Contact You Regarding These Appointments [facility] [place], Neurology, 08/01/24 12:15:00 EDT, Suicidal ideation Unspecified mononeuropathy of right lower limb BMI 40.0-44.9, adult Morbid obesity with body mass index (BMI) of 40.0 or higher Nonsmoker Medications What How Much When Why Instructions New pregabalin (Lyrica 75 mg Cap) 1 Capsules By Mouth 2 times a day Pickup at [facility]/pharmacy #[id number] Changed tizanidine (tiZANidine 4 mg Tab) 4 Milligram By Mouth Every [address] [facility]/pharmacy #[id number] Changed venlafaxine (venlafaxine 75 mg Tab) 1 Tablets By Mouth 2 times a day Pickup at [facility]/pharmacy#[id number] Unchanged acarbose (acarbose 25 mg oral tablet) [...] Tab) 1 Table (more content not included)... [facility]on 08-01-2024 [facility] Medicine Office/Clinic NoteFaHouston [facility] Note Chief Complaint The patient reports [...] is described as throbbing and occasionally shooting withno burning sensation. It becomes severe, disrupting sleep, described as reaching a 10/10 on the pain scale at its worst. It interferes significantly with daily activities, including driving. The patient has attempted to manage the pain with various medications, including gabapentin and Lyrica, withreported ineffectiveness. Currently, tizanidine provides some relief when taken in higher than prescribed doses. The patient breaks 2mg tizanidine tablets to manage dosing himself, often exceeding the recommended amount to mitigate peak pain episodes. Efforts to establish an effective sleep routinewith night-time dosing of tizanidine have had limited success, with breakthrough pain occurring after three hours of relief. Past interventions include lidocaine injections, which have not alleviatedthe pain. The patient reports significant frustration with [...] level of consciousness appropriate for age, CN II- XII intact, motor strength equal & normal bilaterally, speech normal Abdomen: Soft, Non-tender, Non-distended, + Bowel sounds Assessment/Plan 1. Suicidal ideation (R45.851: Suicidal ideations) At this point the patient states that he has no plan to commit suicide. Patient states if the pain that causes him to think he would be better off . But has no plan to do so. When pressed he saidhe is not really serious but when he is in so much pain he just does not want to have the pain anymore. Patient promises that he will not commit suicide and that he will come back in 2 weeks for check up. Will increase the venlafaxine. Ordered: E&M of Est. Patient High 40-54 Min 27192 [facility] [place] Ambulatory Referral Prolonged OV 15 min 12612 2. Unspecified mononeuropathy of right lower limb [...] light of reported thoughts of self-harm linked topain episodes. Provided education on the importance of regimen adherence and communicated potentialside effects of polypharmacy. Ordered: E&M of Est. Patient High 40-54 Min 16355 [facility] [place] Ambulatory Referral Prolonged OV 15 min 37507 3. BMI 40.0-44.9, adult (Z68.41: Body mass index [BMI] 40.0-44.9, adult) Discussed the importance of lifestyle changes, including dietary modifications and physical activity, to manage BMI. Addressed the potential contributions of morbid obesity to peripheral neuropathic symptoms. Ordered: Body Mass Index (BMI) documented 3008F Current tobacco non-user 1036F Depression Screening Positive 3354F E&M of Est. Patient High 40-54 Min 83344 Fall Risk Screen 2 or more w/injury 1100F [facility] [place] (more content not included)...[facility] Comment on above:Result Comment: Electronically Signed By: Marylou SCHUSTER, Everett Sandhu.br\Date and Time Signed: 08/01/24 12:17 XIQ70xm 30-74-593592Qdrqlcr brought in 2 BP monitors from home into the office for calibration. 1st reading (his machine): L sitting 129/58 HR 58 2nd reading (his other machine): L sitting 142/77 HR 57 3rd reading (our machine): L sitting 122/67 HR 62 4th reading (manual): L sitting 120/68 5th reading (his other machine again): L sitting 175/112NormalUniversity of [facility] Taub HospitalTelephoneon [id number] Dong Whitmore 1950 M Date Provider Department Center 07/23/2024 928-ISAURO MURPHY CARD [facility] Family History Problem Relation Age of Onset Coronary artery disease Other Diabetes Other Family Status - Relation Status Age at OtherNormalUniTrinity Health System [facility] CampusOffice Visiton 39-33-1631Itowcj-up [id number] Dong Whitmore 1950 M Date Provider Department Center 07/19/2024 3848-TATA FISHER CARD [facility] Family History Problem Relation Age of Onset Coronary artery disease Other Diabetes Other Family Status - Relation Status Age at Other Level of Service:03599 AR OFFICE/OUTPATIENT ESTABLISHED MOD [facility]DM 30 [facility] 48-50-6952Gpdmbu-up visit [id number] Dong Whitmore 1950 M Date Provider Department Center 06/26/2024 MARY GRIFFIN CARD [facility] Family History Problem Relation Age of Onset Coronary artery disease Other Diabetes Other Family Status - Relation Status Age at Other Level of Service:79361 AR OFFICE/OUTPATIENT ESTABLISHED MOD MDM 30 MIN Reason for Visit and Comments: Coronary Artery Disease [187] Hypertension [586882][facility] HospitalXR Foot - right 3 Viewson 43-75-8034Unfrzxf Result:[facility] PartnersRadiology Study observation (narrative)[facility] Informationon 09-72-6316NoztdChelle Brandon NP 06/12/2024 9:40 AM L Inj/Asp: [...] and draped in the usual sterile fashion. [facility] Health PartnersCNOVon 05-95-4993LGJXHwlxce Visit (NPRC21) DONG WHITMORE ([id number]) 1950 M Date Time Provider Department 04/24/24 9:00 AM CHIQUI ROBLES NPRC21 During your visit today, we recorded the following information about you: Pulse Blood pressure Weight Height 61/minute 122/89 122.5 kg 1.702 m Bishop Rios MD 04/24/2024 11:26 AM Signed [facility] Neurological Dickson April 24, 2024 This is a face [...] Camacho Desimir, MD 04/24/2024 11:26 AM Signed [facility] STAFF PHYSICIAN NOTE OF PERSONAL INVOLVEMENT IN CARE IMPRESSION: Complex regional pain syndrome Adjustment Disorder Tried multiple injections, procedures, surgeries. No benefit Tried SCS and recently DRG without success. Discussed ketamine PLAN: Ketamine infusions Consider scrambler therapy Psych psychology Memantine 5mg Psychotherapy Add-on Progress Note Due to medical condition and comorbid psychological and behavioral concerns - psychotherapy was utilized during the visit. Jkee-vk-lhvy time: 24864 (16-37 mins) actual time spend in psychotherapy [...] which included preparing to see the patient, htsr-qh-oadv patient care, completing clinical documentation, performing a medically appropriate examination, and counseling and educating the patient/family/caregiver. As noted, the patient's clinical situation is complex and serious with significant comorbidity of pain and functional limitations. This requires higher levels of time, intensity, and expense with longitudinal care and support. STAFF PHYSICIAN:: Chiqui Robles MD DATE of SERVICE: 04/24/2024 Referring Provider: RUSLAN ARAUJO [[id number]] Allergies As of Date: 04/24/2024 Noted Allergy [...] TO [facility] (CHRONIC PAIN) [8255193] Order #: [id number]: 1 PAIN RECOVERY FOLLOW UP ORDER [[id number]] Order #: [id number]: 1 FUTURE PROVIDER ORDERED FOLLOW UP [[id number]] Order #: [id number]: 1 FUTURE memantine (NAMENDA) 5 mg tabletTake 1 tablet by mouth once daily.Disp: 30 tabletRfl: 3 CONSULT TO KETAMINE FOR CHRONIC PAIN [9044] Order #: [id number]: 1 FUTURE Prescriptions as of 04/24/2024 - memantine (NAMENDA) 5 mg tablet Take 1 tablet by mouth once daily. - aspirin, enteric coated (ASPIRIN, ENTERIC COATED) 81 mg EC tablet Take 81 mg by mouth once daily. - fi (more content not included)...[facility] OP NOT on 73-54-1463ZTHZU OP NOTHNO ID: [id number] Author: CAPRICE DOWNING MD Service: Pain Management Author Type: Fellow Type: Brief Op Note Filed: 04/03/2024 10:35 Note Text: BRIEF OPERATIVE / PROCEDURE NOTE LOG ID: [id number] SURGERY/PROCEDURE DATE: 04/03/2024 PROCEDURE START TIME: 958 PROCEDURE END TIME: 1030 PRE-OP/PRE-PROCEDURE DIAGNOSIS: Chronic toe pain, right foot [M79.674, G89.29] Complex regional pain syndrome type II of right lower limb [G57.71] POST-OP/POST-PROCEDURE DIAGNOSIS: Chronic toe pain, right foot [M79.674, G89.29] Complex regional pain syndrome type II of right lower limb [G57.71] SURGEON(S)/PROCEDURALIST(S) AND GLOVE TURNER AND FORMER AUTOMATIC(S): Surgeon(s) and Role: * Ruslan Araujo MD, PhD - Primary * Caprice Downing MD No Additional Staff SURGERY/PROCEDURE(S): Attempted Right L4 and L5 Dorsal Root Ganglion Stimulator ANESTHESIA: Anxiolysis and Local anesthetic FINDINGS: None ESTIMATED BLOOD LOSS: Minimal SPECIMENS: None COMPLICATIONS: None Caprice Downing MD Pain Medicine Fellow April 03, 2024NoHol[facility] PROMeet 00-78-9890ZLBAQHA EMERITA ID: [id number] Author: CAYETANO ROSALES RN Service: Nursing Author Type: Registered Nurse Type: Nursing Progress Note Filed: 04/08/2024 15:32 Note Text: Summary: Follow up phone call Follow up phone call made regarding outcome of procedure. No answer voicemail left - The patient was instructed to call [phone] with the percentage of pain relief and what activities have improved. Certpoint Systemst message also sent.[facility] ID: [id number] Author: HOLZHEIMER, SUPENSRI, RN Service: Nursing Author Type: Registered Nurse Type: Nursing Progress Note Filed: 04/09/2024 10:09 Note Text: Summary: Post Procedure Call Patient left voice mail. Team was unable to finish procedure due to patient was unable to stay still. No pain relief noted. Vasu Lares RN April 09, [address]24[address] ID: [id number] Author: LOUANN HYDE RN Service: ? Author Type: Registered Nurse Type: Nursing Progress Note Filed: 04/03/2024 10:45 Note Text: Dr. Marian Downing (fellow) discusses reason why procedure was aborted today. Other options for pain management was discussed with patient and .NormalMercer County Community HospitalOPERATIVE NOon [id number] NOHNO ID: [id number] Author: RUSLAN ARAUJO MD, PhD Service: Pain Management Author Type: Physician Type: Operative Report Filed: 04/03/2024 20:14 Note Text: OPERATIVE/PROCEDURE REPORT : LOG ID: [id number] SURGERY/PROCEDURE DATE: 04/03/2024 INCISION/PROCEDURE START TIME: 9:59 [...] L4 and L5 Dorsal Root Ganglion Stimulator SURGEON(S)/PROCEDURALIST(S) AND GLOVE TURNER AND FORMER AUTOMATIC(S): Surgeon(s) and Role: * Ruslan Araujo MD, PhD - Primary * Caprice [...] the chronic pain recovery program. ELECTRONIC SIGNATURE, Ruslan Araujo MD, PhDNormHolzer Medical Center – Jackson PHYSICALon [id number] PHYSICALHNO ID: [id number] Author: RUSLAN AARUJO MD, PhD Service: Pain Management Author Type: Physician Type: H&P Filed: 04/03/2024 09:33 Note Text: PROCEDURE EVALUATION AND HISTORY AND PHYSICAL EXAM SUBJECTIVE: Dong Whitmore is a 73 year old man who presents to [facility] for Right L4 and L5 Dorsal Root Ganglion Stimulator Trial. This is his first (1) procedure. Focused Review of Systems: PAIN: Denies any contraindications to the procedure including coagulopathy, infection, recent cerebral/myocardial infarct, and hemodynamic instability. He states he is NPO and has a cdl driver for return home. Current Outpatient Medications [...] ACID ORAL Fish Oil 1200mg BID fish oil/borage/flax/om3,6,9 1 (FISH,BORA,FLAX OILS-OM3,6,9NO1 ORAL) ORAL, EVERY 24 [...] the patient's condition since the last C25 [facility] visit: No Provisional Diagnosis: Chronic toe pain, right foot [M79.674, G89.29] Complex regional pain syndrome type II of right lower limb [G57.71] Planned Procedure: Right L4 and L5 Dorsal Root Ganglion Stimulator Trial Caprice Downing MD Pain Medicine Fellow April 03, 2024 Ruslan Araujo MD, PhDNormKettering Health [facility] PROGon 04-01-2024 [facility] ID: [id number] Author: HELENA BAUTISTA RN Service: ? Author [...] 2 hours before the appointment. 2. A cdl driver must be present who can drive you home. If you are coming by medical transport, you must have a responsible person other than the patient transportation driver with you. 3. 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 Patient states that he spoke with his PCP, Dr. Hickman ([phone]) who spoke with Dr. Vega in Infectious disease at [facility]. Dr. Hickman ordered lab work [...] still recommending to keep appt with ID Louann So RN 03/21/2024 11:38 AM Signed Spoke with patient and notified him of provider recommendations. Verbalized understanding. Louann So RN Allergies As of Date: 03/19/2024 Noted Allergy Reaction NSAIDS (NON-STEROIDAL ANTI-INFLAM*02/05/2024 8 - GI Upset Date Reviewed: 02/29/2024 Reviewed by: Preeti Layton LPN - Fully Assessed Reason for Visit: Nurse Triage Call [185] Prescriptions as of 03/21/2024 - aspirin, enteric coated (ASPIRIN, ENTERIC COATED) 81 mg EC tablet Take 81 mg by mouth once daily. - fish oil/borage/flax/om3,6,9 1 (FISH,BORA,FLAX OILS-OM3,6,9NO1 ORAL) Take [...] obesity with serious comorbidity*02/05/2024 Encounter Status:Closed by LOUANN SO on 03/21/24[facility] 79-92-6633Cdbjx gap [Moles/Vol]14 mmol/LNormal6-16[facility] AvonComment on above:Performed By: #### [id number] #### [facility] [address], [place] [address]Ryrpgsn [Mass/Vol]9.4 mg/dLNormal8.9-11.1FOhio Valley Surgical HospitalComment on above:Performed By: #### [id number] #### [facility] [address], [place] [address]Fsdlgiey [Moles/Vol]104 mmol/BFrxpmi193-555UhnfwqSelect Medical [facility] Clinic Rehabilitation Hospital, AvonComment on above:Performed By: #### [id number] #### [facility] [address], [place] [address]FU4 [Moles/Vol]24 mmol/VLiqtos31-08MzgnrwSelect Medical [facility] [place] Comment on above:Performed By: #### [id number] #### [facility] [address], [place] [address]Vlnkuzeglc [Mass/Vol]1.5 mg/dLHigh0.5-1.3FOhio Valley Surgical HospitalComment on above:Performed By: #### [id number] #### [facility] [address], [place] [address]Lroplwy [Mass/Vol]109 mg/hUKmhpzi38-623CvxyhvSelect Medical Cleveland Clinic Rehabilitation Hospital, AvonComment on above:Performed By: #### [id number] #### [facility] [address], [place] [address]Kjguyvtmd [Moles/Vol]4.2 mmol/LNormal3.5-5.3FOhio Valley Surgical HospitalComment on above:Performed By: #### [id number] #### [facility] [address], [place] [address]Zxbodl [Moles/Vol]138 mmol/UOqrgnm780-911OnrlceSelect Medical [facility] Hospital, AvonComment on above:Performed By: #### [id number] #### [facility] [address], [place] [address]Uwqu nitrogen [Mass/Vol]26 mg/dLHigh5-21[facility], AvonComment on above:Performed By: #### [id number] #### [facility] [address], [place] [address]Twah nitrogen/Creatinine [Mass ratio]17 No FjsswDxzlov72-06 [facility], AvonComment on above:Performed By: #### [id number] #### [facility] [address], [place] [address]YppH9sjo 94-24-5971KeP2x (Bld) [Mass fraction]6.5 %High<=5.9 [facility], AvonComment on above:Performed By: #### [id number] #### [facility] [address], [place] [address]iRYQov 30-10-2699iXLE39 mL/min/1.73 m2Low>=59[facility], AvonComment on above:Order Comment: Order added by Discern Expert. Performed By: #### [id number] #### [facility] [address], [place] [address]RACMlc 77-97-8389DXFELjsogr Visit (PAINMN) DONG WHITMORE ([id number]) 1950 M Date Time Provider Department 02/29/24 1:30 PM RUSLAN ARAUJO PAINMN During your visit today, we recorded the following information about you: Temperature Pulse Blood pressure Weight 97.4 degrees 62/minute 138/73 122.5 kg Height 1.702 m Ruslan Araujo MD, PhD 03/18/2024 7:05 PM Signed [facility] Pain [facility] Department New Patient Consultation Referring Physician: SELF Chief Complaint: Right third toe pain SUBJECTIVE: Dong Whitmore is a 73 year old male with a pertinent past medical history of diabetes who presents to [facility] for the evaluation [...] relevant < 16th pe (more content not included)...NormalThe [facility] on 78-40-6263ZKOACtnjkmwpx (MARTIRAVN) DONG WHITMORE ([id number]) 1950 M Date Time Provider Department 02/06/24 FRANCOISE SINGLETARY During your visit today, we recorded the following information about you: Leal Hyatt RN 02/06/2024 10:46 AM Signed ----- Message from Francoise Singletary MD sent at 02/05/2024 3:12 PM EDT ----- Do you mind calling him and giving him the number to schedule at [facility] to discuss DRG? I'd suggest seeking an appointment with the following doctors who perform DRG implantation: Dr. Carlisle, Dr. Araujo, Dr. Dan, Dr. Moo Mcwilliams and Dr. Kamara may do DRG - I'm not sure. Thanks Lela! ----- Message ----- From: Livia Lester PA-C Sent: 02/05/2024 2:07 PM EDT To: Francoise Singletary MD No one on this side of [facility] that I know of does DRG so, we also send to [facility] I would just have Lela call [...] I know who do DRG are at [facility]. How do we refer him [...] Assessed Prescriptions as of 02/13/2024 - fish oil/borage/flax/om3,6,9 1 (FISH,BORA,FLAX OILS-OM3,6,9NO1 ORAL) Take [...] comorbidity*02/05/2024 Encounter Status:Closed by LELA HYATT on 02/06/24[facility] HospitalOCTAVIOJACKELINha 19-45-1602KYTVEgbzyp Visit (DENICE) DONG WHITMORE ([id number]) 1950 M Date Time Provider Department 02/05/24 11:30 AM FRANCOISE SINGLETARY During your visit today, we recorded the following information about you: Pulse Blood pressure Weight 80/minute 131/70 124.7 kg Francoise Singletary MD 02/05/2024 3:14 PM Signed [facility] Pain Management Department Consultation Date: February 02, 2024 - 1:48 PM Referring physician: No referring provider defined for this encounter. Dong Whitmore is self referred. Chief Complaint: Patient presents with: Consult: Rt foot SUBJECTIVE History of Present Illness Dnog Whitmore is a 73 year old and [...] The patient has seen other pain providers. [facility] Neurology OV 02/01/22 Assessment and Plan 71 [...] a 73 year old (more content not included)...Normal[address] with Estimated Average Gluon 55-37-2459PmB7o (Bld) [Mass fraction] 6.900 %High4.3-5.6 %[employer] Other HbA1c (Bld) [Mass fraction]151 mg/dLNoSlyce Other Glucose - FINGER STICKon 44-94-1869Wmpvwyo [Mass/Vol] 138 mg/dLSURF [employer] Other Glucuef mean value [Mass/volume] in Blood Estimated from glycated hemoglobinOrdered By: Aldo Middleton on 59-25-3708Dyddkol glucose Estimated from glycated hemoglobin (Bld) [Mass/Vol]151 mg/dLMansfield HospitalHemoglobin A1c percentageOrdered By: Aldo Middleton on 09-11-2023 HbA1c (Bld) [Mass fraction]6.9 %4.3-5.6FMagruder HospitalComment on above:Increased risk for diabetes: 5.7 - 6.4diabetes: >6.4glycemic control for adults with diabetes: <7.0A1C HEMOGLOBINon 73-67-3102QdL7s (Bld) [Mass fraction]7.6 %[employer] Other Glucose - FINGER STICKon 67-74-6436Veojykn [Mass/Vol] 215 mg/dLNorth [employer] Other HbA1c (Bld) [Mass fraction]on 37-21-8527G1B HEMOGLOBIN [employer] Other ECHOCARDIO M/2D COMPLETEon 21-46-7690SZRNNXCYWM M/2D COMPLETEPatient: DONG WHITMORE Exam Date: 12/30/2022 : 1950 Gender:M Ordering : [facility]ICIO [facility] Admission #: [id number] Family : Order #: [id number] CLICK HERE TO VIEW EXAM ECHOCARDIOGRAM REPORT [...] by: Jesus Thibodeaux M.D. on 12/30/2022 at 18:49[facility] STRESS/REST MULTIon 80-96-0288NP STRESS/REST MULTIPatient: DONG WHITMORE Exam Date: 12/29/2022 : 1950 Gender:M Ordering : MARY APARICIO [facility] Admission #: [id number] Family : Order #: [id number] CLICK HERE TO VIEW EXAM RADIOLOGY REPORT [...] by: Brittny Morales M.D. on 12/30/2022 at 09:41[facility] MAMI DOP LEG RTon 85-74-4911LS MAMI DOP LEG RTEXAMINATION: US MAMI DOP LEG RT HISTORY: Deep [...] Electronically authenticated by: MORGAN ROJO Date: 2022-12-08 16:15NormalMarietta [facility] 78-70-4840UVE1.370 uIU/mLNormal0.358-3.740The [facility] HospitalComment on above:Performed By: #### TSH #### [facility] [address] [place] [address] Dr. Eli Duckworth 36-78-3814Kpdzmrmhpja peptide B (Bld) [Mass/Vol]122.0 pg/mL Normal<=900.0[facility] on above:Performed By: #### CMP, BNP #### [facility] [address] [place] [address] Dr. Eli Cardenas AUTO DIFFon 42-02-3255BICU #0.1 103/ulNormal0.0-0.1The [facility] HospitalComment on above:Performed By: #### CBC ####[facility] Umtpnqwxam[address] [place], [place] [address]Dr.Eli ChangBasophils/100 WBC (Bld)0.7 %Normal0.2-2.0The [facility] HospitalComment on above:Performed By: #### CBC ####[facility] Vkesklbaqb2[address] [place], [place] [address]Dr.Yilan ChangEO #0.2 103/ulNormal0.0-0.7The [facility] HospitalComment on above:Performed By: #### CBC ####[facility] Qcedjtrprr[address] [place], [place] [address]Dr.Eli ChangEosinophils/100 WBC (Bld)3.5 %Normal 0.9-7.0The [facility] HospitalComment on above:Performed By: #### CBC ####[facility] Swrxolprzp[address] [place], [place] [address]Dr.Sparklealine Jarvis Erythrocyte distribution width (RBC) [Ratio]13.8 %Aumhpj57.0-15.0The [facility] HospitalComment on above:Performed By: #### CBC ####[facility] Aubdvsazdy[address] [place], [place] [address]Dr.Eli ChangHematocrit (Bld) [Volume fraction]42.0 %Qrfwfa98.0-54.0The [facility] HospitalComment on above:Performed By: #### CBC ####[facility] Lnmtuydksi[address] [place], [place] [address]Dr.Eli ChangHemoglobin (Bld) [Mass/Vol]13.8 g/dL Critically low14.0-18.0The [facility] HospitalComment on above:Performed By: #### CBC ####[facility] Jaswxfvmzu90[address] [place], [place] [address]Dr. Eli ChangIG #0.03 10e3/ulNormal0.00-0.03The [facility] HospitalComment on above: Performed By: #### CBC ####[facility] [address] [place] [address]Dr.Eli JarvisIG %0.4 %Normal0.0-0.5The [facility] HospitalComment on above:Performed By: #### CBC ####[facility] Rsqlkpmfsg[address] [place], [place] [address]Dr.Eli JarvisLYMPH #1.3 103/ulNormal1.2-3.8The [facility] HospitalComment on above:Performed By: #### CBC ####[facility] Jneztthfzn[address] [place], [place] [address]Dr. Eli JarvisLymphocytes/100 WBC (Bld)18.8 %Critically low20.5-60.0The [facility] HospitalComment on above:Performed By: #### CBC ####[facility] Cmhyiralic[address] [place], [place] [address]Dr.Eli JarvisMANUAL DIFF REQ NONormalThe [facility] HospitalComment on above:Performed By: #### CBC ####[facility] Vustajocsc[address] [place], [place] [address]Dr. Eli JarvisMARIA FARERI [facility] (RBC) [Entitic mass]27.8 jiOkemjz64.9-34.0The [facility] Comment on above:Performed By: #### CBC ####[facility] Fktmwsfdmk27[address] [place], [place] [address]Dr.Eli JarvisELMIRA PSYCHIATR[facility] (RBC) [Mass/Vol]32.9 g/dL Otpcur72.9-35.2The [facility] HospitalComment on above:Performed By: #### CBC ####[facility] Lmlqelmdbk[address] [place], [place] [address]Dr. Eli JarvisV (RBC) [Entitic vol]84.7 jIXozenk38.0-94.0The [facility] Comment on above:Performed By: #### CBC ####[facility] Iuwftnugme6[address] [place], [place] [address]Dr.Eli JarvisMONO #0.6 103/ulNormal0.3-0.8 The [facility] HospitalComment on above:Performed By: #### CBC ####[facility] [address]ty[address] [place] [address]Dr.Eli Jarvis Monocytes/100 WBC (Bld)8.5 %Normal1.7-12.0[facility] on above: Performed By: #### CBC ####[facility] [address] [place] [address]Dr.Eli ChangNEUT #4.7 103/ulNormal1.4-6.5The [facility] HospitalComment on above:Performed By: #### CBC ####[facility] [address]rg[address] [place] [address]Dr.Eli JarvisNeutrophils/100 WBC (Bld)68.1 %Dssysp04.0-75.0The [facility] HospitalComment on above:Performed By: #### CBC ####[facility] Cjocgwjjks[address] [place], [place] [address]Dr.Eli JarvisPlatelet mean volume (Bld) [Entitic vol]10.3 fLNormal9.5-13.5 The [facility] HospitalComharbor oaks hospital on above:Performed By: #### CBC ####[facility] Nbqkuenlpa[address] [place], [place] [address]Dr.Eli PxhwrAXQ653 103/evNyfwqz104-426Vab [facility] HospitalComharbor oaks hospital on above:Performed By: #### CBC ####[facility] Yalgqivxim[address] [place], [place] [address]Dr. Eli ChangRBC4.96 106/ulNormal4.70-6.10The [facility] HospitalComharbor oaks hospital on above: Performed By: #### CBC ####[facility] Xbtbzmsrzp[address] [place], [place] [address]Dr.Eli ChangWBC7.0 103/ulNormal4.0-11.0[facility] on above:Performed By: #### CBC ####[facility] Qfmxowwfal[address] [place], [place] [address]Dr.Eli ChangPROF 14(COMP METB)on 39-15-2025Jymmtxg [Mass/Vol]3.6 g/dLNormal3.4-5.0The [facility] Comment on above:Performed By: #### CMP, BNP #### [facility] [address] [address] [address] Eli JarvisAlbumin/Globulin [Mass ratio]1.1 {ratio}NormalThe [facility] HospitalComment on above:Performed By: #### CMP, BNP #### [facility] [address] [address] [address] Eli Clarke [Catalytic activity/Vol]90 U/MIgkvtq73-229Kuw [facility] HospitalComment on above:Performed By: #### CMP, BNP #### [facility] [address] [address] [address] Eli Chaparro [Catalytic activity/Vol]42 U/KVzpoyj58-98Mgp [facility] HospitalComment on above:Performed By: #### CMP, BNP #### [facility] [address] [place] [address] Dr. Eli Hawkins gap [Moles/Vol]13.5 mmol/LNormalThe [facility] Comment on above:Performed By: #### CMP, BNP #### [facility] [address] [address] [address] Eli Broussard [Catalytic activity/Vol]26 U/IMkxkyr91-77Iwu [facility] HospitalComment on above:Performed By: #### CMP, BNP #### [facility] [address] [address] [address] Eli JarvisBilirubin [Mass/Vol]0.4 mg/dLNormal0.2-1.0The [facility] Comment on above:Performed By: #### CMP, BNP #### [facility] [address] [address] [address] Eli JarvisCalcium [Mass/Vol]9.3 mg/dLNormal8.5-10.1The [facility] Comment on above:Performed By: #### CMP, BNP #### [facility] [address] [address] [address] Eli JarvisChloride [Moles/Vol]104 mmol/OKkdfir73-899Mwu [facility] Comment on above:Performed By: #### CMP, BNP #### [facility] [address] [place] [address] Dr. Eli JarvisCO2 [Moles/Vol]25.7 mmol/EKhtvzm84.0-32.0The [facility] Comment on above:Performed By: #### CMP, BNP #### [facility] [address] [place] [address] Dr. Eli JarvisCreatinine [Mass/Vol]1.32 mg/dLCritically high0.70-1.30The [facility] HospitalComment on above:Performed By: #### CMP, BNP #### [facility] [address] [place] [address] Dr. Eli TaborGFR-AF PAKISTANI>60Normal>=60The [facility] HospitalComment on above:Performed By: #### CMP, BNP #### [facility] [address] [place] [address] Dr. Eli TaborGFR-NON AF YHLRIAFB07 mL/min/1.26o1Odkybllkht low>=60The [facility] HospitalComment on above:Performed By: #### CMP, BNP #### [facility] [address] [place] [address] Dr. Eli JarvisGlobulin (S) [Mass/Vol]3.3 g/dLNormalThe [facility] HospitalComment on above:Performed By: #### CMP, BNP #### [facility] [address] [place] [address] Dr. Eli JarvisGlucose [Mass/Vol]154 mg/dLCritically ddcq85-772Gov [facility] HospitalComment on above:Performed By: #### CMP, BNP #### [facility] [address] [place] [address] Dr. Eli JarvisPotassium [Moles/Vol]4.2 mmol/LNormal3.5-5.1The [facility] Comment on above:Performed By: #### CMP, BNP #### [facility] [address] [place] [address] Dr. Yilan ChangProtein [Mass/Vol]6.9 g/dLNormal6.4-8.2[facility] Comment on above:Performed By: #### CMP, BNP #### [facility] [address] [address] [address] Eli JarvisSodium [Moles/Vol]139 mmol/JJxuvgs746-358Ynj [facility] Comment on above:Performed By: #### CMP, BNP #### [facility] [address] [address] [address] Eli JarvisUrea nitrogen [Mass/Vol]23.0 mg/dLCritically high7.0-18.0[facility]burgComment on above:Performed By: #### CMP, BNP #### [facility] [address] [place] [address] Dr. Eli Reid nitrogen/Creatinine [Mass ratio]17.4 mg/mgNormalThe [facility] HospitalComment on above:Performed By: #### CMP, BNP #### [facility] [address] [place] [address] Dr. Eli JarvisA1C HEMOGLOBINon 78-37-3109OaN1y (Bld) [Mass fraction]7.6 %[employer] Other Glucose - FINGER STICKon 93-72-2129Fdblqmg [Mass/Vol] 172 mg/dLN[employer] Other HbA1c (Bld) [Mass fraction]on 25-68-8852T4E HEMOGLOBIN [facility] [employer] Other US KIDNEYSon 86-26-3013SV KIDNEYSEXAMINATION: US KIDNEYS HISTORY: Acquired renal cystic disease [...] Electronically authenticated by: MORGAN ROJO Date: 2022 18:30[facility] Medical CenterA1C HEMOGLOBINon 10-37-0181QjZ1u (Bld) [Mass fraction]7.2 % [employer] Other Glucose - FINGER STICKon 93-93-0386Ukcxlgt [Mass/Vol] 160 mg/dLNoSlyce Other HbA1c (Bld) [Mass fraction]on 71-48-1685S9Z HEMOGLOBIN [employer] Other A1C HEMOGLOBINon 02-48-5163PiQ5w (Bld) [Mass fraction] 7.6 %[employer] Other Glucose - FINGER STICKon 99-44-6642Egkjumq [Mass/Vol] 184 mg/dLNoSlyce Other HbA1c (Bld) [Mass fraction]on 74-75-9736Y4R HEMOGLOBIN [employer] Other microAlb Creat Ratio,Uon 23-40-2398Hscqvfr DL <= 20 mg/L (U) [Mass/Vol]10.2452243 mg/dLHigh0.0-1.8 mg/dLCarondelet HealthCampus Connectr Other Albumin/Creatinine DL <= 20 mg/L (U) [Mass ratio] 70.280264 mg/gHigh0.0-30.0 mg/gNorth [employer] Other Creatinine (U) [Mass/Vol]731.1999078 mg/dLSlyce Other CBC AUTO DIFFon 36-41-1787YAZF #0.0 103/ulNormal 0.0-0.1[facility]burgComment on above:Performed By: #### CBC #### [facility] [address] [place] [address] Dr. Eli JarvisBasophils/100 WBC (Bld)0.6 %Normal0.2-2.0[facility] Comment on above:Performed By: #### CBC #### [facility] [address] [place] [address] Dr. Eli Gage #0.2 103/ulNormal0.0-0.7The [facility] HospitalComment on above: Performed By: #### CBC #### [facility] [address] [place] [address] Dr. Eli Taborosinophils/100 WBC (Bld)2.9 %Normal0.9-7.0[facility] Comment on above:Performed By: #### CBC #### [facility] [address] [place] [address] Dr. Eli Taborrythrocyte distribution width (RBC) [Ratio]13.8 %Wvpfoq68.0-15.0 [facility]burgComment on above:Performed By: #### CBC #### [facility] [address] [place] [address] Dr. Eli JarvisHematocrit (Bld) [Volume fraction]40.7 %Critically low42.0-54.0 [facility]burgComment on above:Performed By: #### CBC #### [facility] [address] [place] [address] Dr. Eli JarvisHemoglobin (Bld) [Mass/Vol]13.3 g/dLCritically low14.0-18.0[facility]burgComment on above:Performed By: #### CBC #### [facility] [address] [place] [address] Dr. Eli Leyva #0.04 10e3/ulCritically high0.00-0.03[facility] Comment on above:Performed By: #### CBC #### [facility] [address] [place] [address] Dr. Eli Leyva %0.6 %Critically high0.0-0.5The [facility] HospitalComment on above:Performed By: #### CBC #### [facility] [address] [place] [address] Dr. Eli Tobar #1.3 103/ulNormal1.2-3.8The [facility] HospitalComment on above:Performed By: #### CBC #### [facility] [address] [place] [address] Dr. Eli Grayhocytes/100 WBC (Bld)18.7 %Critically low20.5-60.0The [facility] HospitalComment on above:Performed By: #### CBC #### [facility] [address] [place] [address] Dr. Eli Rutherford DIFF REQNONormalThe [facility] HospitalComment on above: Performed By: #### CBC #### [facility] [address] [place] [address] Dr. Eli Mclaughlin (RBC) [Entitic mass]28.1 faIcbhlm21.9-34.0The [facility] HospitalComment on above:Performed By: #### CBC #### [facility] [address] [place] [address] Dr. Eli Abad (RBC) [Mass/Vol]32.7 g/pFNddttj01.9-35.2The [facility] HospitalComment on above:Performed By: #### CBC #### [facility] [address] [place] [address] Dr. Eli Crandall (RBC) [Entitic vol]86.0 xCIrsiqw46.0-94.0The [facility] HospitalComment on above:Performed By: #### CBC #### [facility] [address] [place] [address] Dr. Eli Segura #0.4 103/ulNormal0.3-0.8The [facility] HospitalComment on above:Performed By: #### CBC #### [facility] [address] [place] [address] Dr. Eli Boucherocytes/100 WBC (Bld)6.2 %Normal1.7-12.0[facility] Comment on above:Performed By: #### CBC #### [facility] [address] [place] [address] Dr. Eli Victoria #4.9 103/ulNormal1.4-6.5The [facility] HospitalComment on above:Performed By: #### CBC #### [facility] [address] [place] [address] Dr. Eli Serranoutrophils/100 WBC (Bld)71.0 %Gackhm47.0-75.0The [facility] HospitalComment on above:Performed By: #### CBC #### [facility] [address] [place] [address] Dr. Eli JarvisPlatelet mean volume (Bld) [Entitic vol]9.9 fLNormal9.5-13.5The [facility] HospitalComment on above:Performed By: #### CBC #### [facility] [address] [place] [address] Dr. Eli JarvisPLT184 103/kvJhyede916-008Rcq [facility] HospitalComment on above: Performed By: #### CBC #### [facility] [address] [place] [address] Dr. Eli JarvisRBC4.73 106/ulNormal4.70-6.10The [facility] HospitalComment on above:Performed By: #### CBC #### [facility] [address] [place] [address] Dr. Eli JarvisWBC6.9 103/ulNormal4.0-11.0The [facility] HospitalComment on above: Performed By: #### CBC #### [facility] [address] [place] [address] Dr. Eli JarvisLIPID PROFILEon 18-15-9517PFKW-HDL RATIO NORMSEE BELOWFisher-Titus Medical CenterComment on above:Result Comment: 3.3 - 4.4 LOW RISK 4.4 - 7.1 AVERAGE RISK 7.1 - 11.0 MODERATE RISK >11.0 HIGH RISKPerformed By: #### CMP, LIPID ####[facility] [address] [employer], [place] [address]Dr. Yilan ChangCholesterol [Mass/Vol]127 mg/dLNormal<=200The [facility] HospitalComharbor [facility]aks hospital on above:Performed By: #### CMP, LIPID ####[facility] [address] [employer], [place] [address]Ly. Yilan ChangCholesterol in HDL [Mass/Vol]36 mg/dLCritically gka87-18Vil [facility] HospitalComment on above: Performed By: #### CMP, LIPID ####[facility] [address] [employer], [place] [address]Hb. Yilan ChangCholesterol in LDL [Mass/Vol]58.4 mg/dL NormalThe [facility] HospitalComharbor oaks hospital on above:Performed By: #### CMP, LIPID ####[facility] [address] [place] [address]Qy. Yilan ChangCholesterol.total/Cholesterol in HDL [Mass ratio]3.5 {ratio}NormalKettering Health MiamisburgComharbor oaks hospital on above:Performed By: #### CMP, LIPID ####[facility] [address] [employer], [place] [address]Aa. Yilan ChangHDL NORMAL> or = 60 mg/dl - LOW CARDIOVASCULAR RISK <40 mg/dl - HIGH CARDIOVASCULAR RISKFisher-Titus Medical CenterComharbor oaks hospital on above:Performed By: #### CMP, LIPID ####[facility] [address] [place] [id number]. Yilan ChangLDL CALC NORMALSEE BELOWFisher-Titus Medical CenterComment on above: Result Comment: <100 mg/dl OPTIMAL 100 - 129 mg/dl NEAR OR ABOVE OPTIMAL 130 - 159 mg/dl BORDERLINE HIGH 160 - 189 mg/dl HIGH >190 mg/dl VERY HIGHPerformed By: #### CMP, LIPID ####[facility] [address] [employer], [place] [address]Fb. Yilan ChangTriglyceride [Mass/Vol]163 mg/dLCritically high<=150The [facility] HospitalComment on above:Performed By: #### CMP, LIPID ####[facility] [address] [address]Dr. Yilan ChangVLDL CALC32.6 mg/dLNormalThe [facility] HospitalComment on above:Performed By: #### CMP, LIPID ####[facility] [address] [address]Dr. Yilan ChangPROF 14(COMP METB)on 05-23-4751Qlnozdy [Mass/Vol]3.8 g/dL Normal3.4-5.0The [facility] HospitalComment on above:Performed By: #### CMP, LIPID ####[facility] [address] [address]Dr. Yilan ChangAlbumin/Globulin [Mass ratio]1.1 {ratio}NormalThe [facility] Comment on above:Performed By: #### CMP, LIPID ####[facility] [address] [address]Dr. Yilan ChangALP [Catalytic activity/Vol]89 U/AMbyrry13-638Plu [facility] HospitalComment on above:Performed By: #### CMP, LIPID ####[facility] [address] [address]Dr. Yilan ChangALT [Catalytic activity/Vol]43 U/L Afkviv16-87Aic [facility] HospitalComment on above:Performed By: #### CMP, LIPID ####[facility] [address] [address]Dr. Yilan ChangAnion gap [Moles/Vol]10.7 mmol/LNormalThe [facility] HospitalComment on above:Performed By: #### CMP, LIPID ####[facility] [address]tyme[address] [place], [place] [address]Dr. Yilan ChangAST [Catalytic activity/Vol]24 U/L Despwx43-36Ozx [facility] HospitalComment on above:Performed By: #### CMP, LIPID ####[facility] [address]tejmdqh[address] [place], [place] [address]Dr. Yilan ChangBilirubin [Mass/Vol]0.2 mg/dLNormal0.2-1.0The [facility] Comment on above:Performed By: #### CMP, LIPID ####[facility] [address]wqptzno[address] [place], [place] [address]Dr. Yilan ChangCalcium [Mass/Vol]9.1 mg/dLNormal8.5-10.1The [facility] HospitalComment on above:Performed By: #### CMP, LIPID ####[facility] [address]qfc[address] [place], [place] [address]Dr. Yilan ChangChloride [Moles/Vol]104 mmol/LNormal 98-107The [facility] HospitalComment on above:Performed By: #### CMP, LIPID ####[facility] [address]tvpycrxxy[address] [place], [place] [address]Dr. Yilan ChangCO2 [Moles/Vol]27.5 mmol/MTwjusx77.0-32.0The [facility] HospitalComment on above:Performed By: #### CMP, LIPID ####[facility] [address]oy[address] [place], [place] [address]Dr. Yilan ChangCreatinine [Mass/Vol]1.15 mg/dLNormal0.70-1.30The [facility] HospitalComment on above:Performed By: #### CMP, LIPID ####[facility] [address]ys[address] [place], [place] [address]Dr. Yilan ChangEGFR-AF PAKISTANI>60Normal>=60[facility]burgComment on above:Performed By: #### CMP, LIPID ####[facility] Vvrppxrmyl[address] [place], [place] [address]Dr. Yilan ChangEGFR-NON AF PAKISTANI>60Normal>=60 The [facility] HospitalComment on above:Performed By: #### CMP, LIPID ####[facility] [address]wmb[address] [place], [place] [address]Dr. Yilan Jarvis Globulin (S) [Mass/Vol]3.4 g/dLNormalThe [facility] HospitalComment on above: Performed By: #### CMP, LIPID ####[facility] [address]ou[address] [place], [place] [address]Dr. Yilan ChangGlucose [Mass/Vol]157 mg/dLCritically rowr81-373Kgg [facility] HospitalComment on above:Performed By: #### CMP, LIPID ####[facility] [address] [place] [address]Dr. Yilan ChangPotassium [Moles/Vol]4.2 mmol/LNormal3.5-5.1[facility] Comment on above:Performed By: #### CMP, LIPID ####[facility] [address] [address]Dr. Yilan ChangProtein [Mass/Vol]7.2 g/dLNormal6.4-8.2The [facility] HospitalComment on above:Performed By: #### CMP, LIPID ####[facility] Psvwlxetcn[address] [place], [place] [address]Dr. Yilan ChangSodium [Moles/Vol]138 mmol/LNormal 136-145The [facility] HospitalComment on above:Performed By: #### CMP, LIPID ####[facility] [address]gxts[address] [place] [address]Dr. Yilan ChangUrea nitrogen [Mass/Vol]26.0 mg/dLCritically high7.0-18.0The [facility] HospitalComment on above:Performed By: #### CMP, LIPID ####[facility] Owzhcymjta[address] [place], [place] [address]Dr. Yilan ChangUrea nitrogen/Creatinine [Mass ratio]22.6 mg/mgNormalThe [facility] HospitalComment on above:Performed By: #### CMP, LIPID ####[facility] Jsdjajt[address] [place], [place] [address]Dr. Yilan EvabpL2T HEMOGLOBINon 17-70-7316KxZ0c (Bld) [Mass fraction]6.6 %[employer] Other Glucose - FINGER STICKon 91-15-8201Vxgcgxt [Mass/Vol] 169 mg/dLNort [employer] Other HbA1c (Bld) [Mass fraction]on 38-45-1487H0Z HEMOGLOBIN [employer] Other Comprehensive Metabolic Panelon 34-31-4441Ckxugqv [Mass/Vol]3.9 g/dL3.2-5.5Nosaint [facility] [employer] Other albumin/Globulin [Mass ratio]1.6 {ratio}[facility] [employer] Other aLP [Catalytic activity/Vol]63 U/X60-70Ezwzo [employer] Other aLT [Catalytic activity/Vol]32 U/R77-56Mveuk [employer] Other aST [Catalytic activity/Vol]32 U/N75-31Lvtwy [employer] Other bilirubin [Mass/Vol]0.5 mg/dL0.3-1.2Ntenet [place] [employer] Other Calcium [Mass/Vol]9.7 mg/dL8.2-10.2Ntenet [place] [employer] Other Chloride [Moles/Vol]105 mmol/Z38-077Zouyi [employer] Other CO2 [Moles/Vol]22.7 mmol/L22.0-30.0[employer] Other Creatinine [Mass/Vol]1.28 mg/dL0.64-1.27Nosaint [facility]oseph [facility] [employer] Other Glucose [Mass/Vol]111 mg/dX48-424Ctlnd [employer] Other Potassium [Moles/Vol]4.1 mmol/L3.5-5.1Ntenet [place] [employer] Other Protein [Mass/Vol]6.3 g/dL6.1-7.9[employer] Other Sodium [Moles/Vol]139 mmol/G710-988Ywrqf [employer] Other Urea nitrogen [Mass/Vol]23 mg/dL9-23Nosaint joseph [facility] [employer] Other Comprehensive Metabolic Ndfyr12Bzkgx [employer] Other Comprehensive Metabolic Panel> 60[employer] Other Comprehensive Metabolic Panel2.4Nort [employer] Other Hepatitis Acute Panelon 50-63-8962Miugelqok Acute PanelNegativeNegativeNosaint joseph hospital [facility] [employer] Other Hepatitis Acute Panel<0.10.0-0.9Nosaint [facility] [employer] Other Vital Signs Date TimeVital SignValuePerforming GixumohkmCxfndvgw85-98-8886 09:55-0400Body .1 cmNicholas Brown DPM Work Phone: [facility]Wqgdudyoqc61-88-1770 09:55-0400Body mass index (BMI) [Ratio]45.93 kg/t6Uqjrjzke Brown DPM Work Phone: [phone] [place], [place] [address]Dstqcqmesg98-62-0287 09:55-0400Body giewjq997.19 kgNicholas Brown DPM Work Phone: [facility] HospitalAhkfuyvcjt04-61-3641 09:55-0400Respiratory rate16 /minNicholas Brown DPM Work Phone: [facility] HospitalDhsfsobrbn31-14-6679 13:04-0400Body cxcgba169.1 cmNicholas Brown DPM Work Phone: [facility] HospitalCpjpqhgzay04-08-5282 13:04-0400Body mass index (BMI) [Ratio]45.93 kg/a3Xdtqgnza Brown DPM Work Phone: [facility] HospitalAghygyjgtw23-76-8261 13:04-0400Body zewwyh830.19 kgNicholas Brown DPM Work Phone: [facility] HospitalYbdrnqisay96-31-5904 13:04-0400Respiratory rate18 /minNicholas Brown DPM Work Phone: [facility] HospitalBvinvjqvac78-82-6677 14:05-0400Body agfvmn277.1 cmNicholas Brown DPM Work Phone: [facility] HospitalArnzuurjkd01-10-9700 14:05-0400Body mass index (BMI) [Ratio]45.93 kg/w9Vujvhesw Brown DPM Work Phone: [facility] HospitalLeukiqyiju03-46-0284 14:05-0400Body eexjgq098.19 kgNicholas Brown DPM Work Phone: [phone] [place], [place] [address]Iwvdxthwgr37-80-6168 14:05-0400Respiratory rate18 /minNicholas Brown DPM Work Phone: [phone] [place], [place] [address]Flieqeegmz29-26-7774 14:01-0400Body lwwpeh654.1 cmNicholas Brown DPM Work Phone: [phone] [place], [place] [address]Bkatmtjssg79-52-7076 14:01-0400Body mass index (BMI) [Ratio]45.93 kg/r2Badtvbvr Brown DPM Work Phone: [phone] [place], [place] [address]Sxnkmmetef59-57-3079 14:01-0400Body ypcozh626.19 kgNicholas Brown DPM Work Phone: [phone] [place], [place] [address]Mcuaqaujye09-02-8774 14:01-0400Respiratory rate18 /minNicholas Brown DPM Work Phone: [phone] [place], [place] [address]Vhydphalhy80-73-0007 14:43-0400Body cafkxs275.1 cmNicholas Brown DPM Work Phone: [phone] [place], [place] [address]Vktbgscpjx34-40-2022 14:43-0400Body mass index (BMI) [Ratio]45.93 kg/n7Vxdocrri Brown DPM Work Phone: [phone] [place], [place] [address]Dvkvvibagc96-12-5384 14:43-0400Body kefaak615.19 kgNicholas Brown DPM Work Phone: [phone] [place], [place] [address]Kzzhtyybqi83-61-4850 14:43-0400Respiratory rate16 /minNicholas Brown DPM Work Phone: [facility] HospitalAbrtcbcsqj39-63-2178 16:00-0400Body temperature 97.9 [degF]Deo Hickman Work Phone: [facility]09-27-2025 16:00-0400 Diastolic blood mm[Hg]Deo Hickman Work Phone: [facility]09-27-2025 16:00-0400 Heart rate74 /Sally Hickman Work Phone: [facility]09-27-2025 16:00-0400 Respiratory rate18 /Sally Hickman Work Phone: [phone]09-27-2025 16:00-0400 SaO2% (BldA) [Mass fraction]94 %Deo Hickman Work Phone: [facility]09-27-2025 16:00-0400 Systolic blood citiphen355 mm[Hg]Deo Hickman Work Phone: [facility]09-27-2025 05:39-0400 Body buhdyn900.6 kgDeo Hickman Work Phone: [facility]09-26-2025 14:56-0400 Body qjloxh481.18 cmDeo Hickman Work Phone: [facility]08-14-2025 08:59-0400 Body iruttn960.1 cmBassam Aguilar DPM Work Phone: [facility] HospitalRwslmxuvik26-69-7741 08:59-0400Body mass index (BMI) [Ratio]45.93 kg/b6XvsrfpmrBassam Aguilar DPM Work Phone: [facility] HospitalBobiyehpvb20-05-9669 08:59-0400Body .19 kgBassam Aguilar DPM Work Phone: [facility] HospitalOrrdejinpd85-19-7296 08:59-0400Respiratory rate16 /carolyneBassam Aguilar DPM Work Phone: [place] [address]Bqblgqdrah88-99-2290 10:55-0400Body hsobhr830.18 cmSavibenjamin Torres PhD Work Phone: [phone] [place], [place] 8342808-06-2025 10:55-0400Body mass index (BMI) [Ratio]40.08 kg/q2VruggpaKaia Torres PhD Work Phone: [phone] [place], [place] 834[address]8-06-2025 10:55-0400Body surface area Derived from formula2.34 q9KajsqylKaia Torres PhD Work Phone: [phone] [place], [place] 834[address]8-06-2025 10:55-0400Body xvzxoa337.07 kgSavibenjamin Torres PhD Work Phone: [phone] [place], [place] 834[address]7-23-2025 14:19-0400Body kotvne802.1 Adalgisa Wong MD Work Phone: [facility] HospitalBaslostsrr18-53-3337 14:19-0400Body mass index (BMI) [Ratio]45.93 kg/b3FkzedhDavid Wong MD Work Phone: [facility] HospitalKyzavvhljs35-43-2964 14:19-0400Body uenlws404.19 kgDavid Wong MD Work Phone: [facility] HospitalCbrvlmjjfn64-17-3458 14:19-0400Diastolic blood dqeedrfz64 mm[Hg]David Wong MD Work Phone: [facility] HospitalDwhvmfyxnm74-42-7069 14:19-0400Heart rate76 /min David Wong MD Work Phone: [facility] HospitalKasvynphph24-55-9853 14:19-0400Systolic blood ioffioou585 mm[Hg]David Wong MD Work Phone: [facility] HospitalCdelcfjpvd72-60-9581 13:03-0400Body .2 kgDeo Hickman Work Phone: [facility]06-23-2025 09:19-0400 Body nksiew671.1 Adalgisa Wong MD Work Phone: [facility] HospitalUrcrwdurga85-10-6502 09:19-0400Body mass index (BMI) [Ratio]45.93 kg/z7TxbnclDavid Wong MD Work Phone: [facility] HospitalBgmpuylbob86-67-9204 09:19-0400Body dcvenk808.19 kgDavid Wong MD Work Phone: [facility] HospitalVyfdivtjub36-96-3468 09:19-0400Diastolic blood mm[Hg]David Wong MD Work Phone: [facility] HospitalUgdqkltcxk32-05-4312 09:19-0400Heart rate78 /min David Wong MD Work Phone: [facility] HospitalYbxlbptvrm44-95-1668 09:19-0400Systolic blood tglvurtf50 mm[Hg]David Wong MD Work Phone: [facility] HospitalAccylpccme26-12-6998 13:09-0400Body rogoqh490.18 cmDeo Hickman Work Phone: [phone]06-18-2025 13:09-0400 Body mass index (BMI) [Ratio]40.4 kg/k9QplwmafnDeo Hickman Work Phone: [phone]06-18-2025 13:09-0400 Body ehccso529 kgDeo Hickman Work Phone: [phone]06-18-2025 13:09-0400 Diastolic blood fqesgkao79 mm[Hg]Deo Hickman Work Phone: [phone]06-18-2025 13:09-0400 Heart rate63 /minDeo Hickman Work Phone: [phone]06-18-2025 13:09-0400 Respiratory rate18 /minDeo Hickman Work Phone: [phone]06-18-2025 13:09-0400 SaO2% (BldA) [Mass fraction]98 %Deo Hickman Work Phone: [facility]06-18-2025 13:09-0400 Systolic blood zuusgxfp397 mm[Hg]Deo Hickman Work Phone: [facility]06-11-2025 11:38-0400 Body vwfaqh822.18 cmDeo Hickman Work Phone: [facility]06-11-2025 11:38-0400 Body mass index (BMI) [Ratio]39.9 kg/n1MwabgsqaDeo Hickman Work Phone: [facility]06-11-2025 11:38-0400 Body .2 [degF]Deo Hickman Work Phone: [facility]06-11-2025 11:38-0400 Body sdyipj808.66 kgDeo Hickman Work Phone: [facility]06-11-2025 11:38-0400 Diastolic blood wvopkpcb03 mm[Hg]Deo Hickman Work Phone: [facility]06-11-2025 11:38-0400 Heart rate96 /minDeo Hickman Work Phone: [facility]06-11-2025 11:38-0400 SaO2% (BldA) [Mass fraction]98 %Deo Hickman Work Phone: [facility]06-11-2025 11:38-0400 Systolic blood vuzyiguy621 mm[Hg]Deo Hickman Work Phone: [facility]06-05-2025 13:17-0400 Body .18 cmM[facility]06-05-2025 13:17-0400Body mass index (BMI) [Ratio]39.1 kg/y2TastebnrnM[facility]field Hospital06-05-2025 13:17-0400Body udytyu224.3 kgM[facility]field Hospital06-05-2025 13:17-0400Diastolic blood mm[Hg][facility] 03-13-2025 13:17-0400Systolic blood hikzpsuy537 mm[Hg][facility]05-29-2025 09:16-0400Body huvgwc324.1 cmBassam Aguilar DPM Work Phone: [facility] HospitalYpuwgjipro86-64-2570 09:16-0400Body mass index (BMI) [Ratio]45.93 kg/m9Zexksdfp Brown DPM Work Phone: [facility] HospitalJzqvtrqjkb76-70-5305 09:16-0400Body ivachg442.19 kgNictresa Brown DPM Work Phone: [facility] HospitalOdpivytszh46-15-4292 09:16-0400Respiratory rate18 /minBassam Aguilar DPM Work Phone: [facility] HospitalUeudjcpvst57-23-3188 10:14-0500Body quvvmq455.1 cmNictresa Aguilar DPM Work Phone: [phone] [place], [place] [address]Owukrhdwyi89-20-4777 10:14-0500Body mass index (BMI) [Ratio]45.93 kg/x1Bxjnhfra Brown DPM Work Phone: [phone]-[facility] HospitalRturbrcuox28-93-7789 10:14-0500Body uchyux045.19 kgNictresa Brown DPM Work Phone: [facility] HospitalQqrwltzqyk95-02-2509 10:14-0500Respiratory rate16 /minBassam Brown DPM Work Phone: [facility] HospitalVgcwnvqfxm43-22-3524 09:27-0500Body mass index (BMI) [Ratio]45.93 kg/g2Oxzzcfsdayk Lalo DO Work Phone: [facility] HospitalQuhfgtukno35-40-6787 09:27-0500Body xcalzg493.19 kgChristopher Lalo DO Work Phone: [facility] HospitalYgwgwrfxay88-54-4747 09:27-0500Diastolic blood xpxvawbm44 mm[Hg]Matthew May DO Work Phone: [facility] HospitalKhrqvhqegn23-48-5566 09:27-0500Heart rate64 /min Matthew May DO Work Phone: no[facility] CenterGssdorblyj78-88-0168 09:27-5972CfE2% (BldA) [Mass fraction]95 %Matthew May DO Work Phone: noSaint [facility] CenterYjfgvvpozv52-61-6185 09:27-0500Systolic blood xbvgoqqj188 mm[Hg]Jamisonjeanine May DO Work Phone: [phone] [facility] CenterWtpfqnkoew19-92-6555 09:59-0500Body mass index (BMI) [Ratio]40.46 kg/y3ZogemeuChiqui Robles MD Work Phone: [facility]11-06-2024 09:59-0500Body yvwenq581.2 kgChiqui Robles MD Work Phone: [facility]11-06-2024 09:59-0500Diastolic blood rxzoibyx65 mm[Hg]Chiqui Robles MD Work Phone: [facility]11-06-2024 09:59-0500Heart rate59 /min Chiqui Robles MD Work Phone: [facility]11-06-2024 09:59-0500Respiratory rate 16 /minDesimir Travis SCHUSTER Work Phone: [facility]11-06-2024 09:59-4790CyR6% (BldA) [Mass fraction]97 %Chiqui Robles MD Work Phone: [facility]11-06-2024 09:59-0500Systolic blood ycvlrzcl292 mm[Hg]Chiqui Robles MD Work Phone: [facility]10-31-2024 09:32-0400Body zwfrij944.1 cmBassam PERKINSM Work Phone: NOSaint [facility] Medical CenterOddedlgkdw53-38-9551 09:32-0400Body mass index (BMI) [Ratio]42.43 kg/c9RwqbptljBassam Aguilar DPM Work Phone: noSaint [facility] CenterZimnkrddhr06-10-3137 09:32-0400Body .67 kgOlenamariann Calvin DPM Work Phone: [facility] HospitalSmwlrqplnn05-37-1901 09:32-0400Diastolic blood hvntguhq84 mm[Hg]Bassam Calvin DPM Work Phone: [facility] HospitalKudsqsigfl58-59-6206 09:32-0400Heart rate82 /min Bassam Aguilar DPM Work Phone: [facility] HospitalGsefkwqyzk89-78-6422 09:32-0400Systolic blood zcmffafk037 mm[Hg]Bassam Brown DPM Work Phone: [facility] HospitalPumiydalif62-55-8013 09:53-0400Body ddiugr791.1 cmMichael Mcwilliams DO Work Phone: noSaint [facility] CenterScpgwryrmn89-88-3324 09:53-0400Body mass index (BMI) [Ratio]42.43 kg/x3Iwixwia Mcwilliams DO Work Phone: noSaint [facility] CenterAdzbftmmls30-06-3266 09:53-0400Body erskpp359.67 kgMichael Mcwilliams DO Work Phone: noSaint [facility] CenterGjakaattla13-21-2929 10:20-0400Body xejhuo108.1 cmMarc Dolce DPM FACFAS Work Phone: [facility] HospitalMljxhoenys05-39-4840 10:20-0400Body mass index (BMI) [Ratio]42.43 kg/m2Marc Dolce DPM FACFAS Work Phone: [facility] HospitalJsejwfptzu17-14-9387 10:20-0400Body pbkvzy521.67 kgMarc Dolce DPM FACFAS Work Phone: [facility] HospitalEiapopwyjr40-15-3311 10:20-0400Diastolic blood mmkkiirl01 mm[Hg]Shyam Freeman DPM FACFAS Work Phone: [facility] HospitalRvhqrryamu01-17-2468 10:20-0400Heart rate68 /min Shyam Dolce DPM FACFAS Work Phone: [phone] [place], [place] 2322910-23-2024 10:20-0400Systolic blood cvdwfovu583 mm[Hg]Shyam Freeman DPM [employer]AC[employer]AS Work Phone: 1([phone])[address] [place], [place] 2322910-16-2024 10:12-0400Body .1 cmMarc Dolce DPM [employer]AC[employer] Work Phone: 1([phone])[address] [place], [place] 2322910-16-2024 10:12-0400Body mass index (BMI) [Ratio]42.43 kg/m2Marc Dolce DPM [employer] Work Phone: [phone])[address] [place], [place] 2322910-16-2024 10:12-0400Body .67 kgMarc Dolce DPM [employer]AC[employer] Work Phone: 1(426)[address] [place] [address]-16-2024 10:12-0400Diastolic blood cefanpuh91 mm[Hg]Shyam Freeman DPM [employer]AC[employer] Work Phone: [phone])[address] [place], [place] 2322910-16-2024 10:12-0400Heart rate83 /min Shyam Freeman DPM [employer] Work Phone: 1(309)[address] [place] [address]-16-2024 10:12-0400Systolic blood empeenvy134 mm[Hg]Shyam Freeman DPM [employer] Work Phone: 1(659)[address] [place], [place] 2322910-15-2024 09:37-0400Body mectch100.1 cmThierrywinston medical center Daniel [employer] Work Phone: 1([phone] [place], [place] [address]Gpsvtzqrqa75-93-1925 09:37-0400Body mass index (BMI) [Ratio]42.43 kg/t8Vbegq Daniel DO Work Phone: 1(165)691-[address] [place], [place] [address]Ejxtdvbwfd04-02-6879 09:37-0400Body nqovri758.67 kgThierrywinston medical center Daniel DO Work Phone: 1([phone] [place], [place] [address]Jclqhnbaaa57-58-3564 10:07-0400Body soguml853.1 cmMarc Dolce DPM [employer] Work Phone: [phone])[address] [place], [place] 2322909-25-2024 10:07-0400Body mass index (BMI) [Ratio]42.43 kg/m2Marc Dolce DPM [employer] Work Phone: 1(419)[address] [place] [address]-25-2024 10:07-0400Body .67 kgMarc Dolce DPM [employer] Work Phone: 1(419)[address] [place] [address]-25-2024 10:07-0400Diastolic blood mm[Hg]Shyam Dolce DPM [employer] Work Phone: 1(419)[address] [place] [address]-25-2024 10:07-0400Heart rate85 /min Shyam Dolce DPM [employer] Work Phone: 1(419)[address] [place] [address]-25-2024 10:07-0400Systolic blood pwjjrids969 mm[Hg]Shyam Dolce DPM [employer] Work Phone: 1(419)[address] [place] [address]-17-2024 14:46-0400Body vmsoie770.1 cmKareem Dolce DPM [employer] Work Phone: 1(419)[address] [place] [address]-17-2024 14:46-0400Body mass index (BMI) [Ratio]42.43 kg/p4Dtvvig Dolce DPM [employer] Work Phone: 1(419)[address] [place] [address]-17-2024 14:46-0400Body wzeqca879.67 kgKareem Dolce DPM [employer] Work Phone: 1(419)[address] [place] [address]-17-2024 14:46-0400Diastolic blood coupamvl44 mm[Hg]Levar Dolce DPM [employer] Work Phone: 1(419)[address] [place] [address]-17-2024 14:46-0400Heart rate72 /min Levar Dolce DPM [employer] Work Phone: 1(419)[address] [place] [address]-17-2024 14:46-0400Systolic blood pjmukvtu084 mm[Hg]Levar Dolce DPM [employer] Work Phone: 1(419)[address] [place] [address]-11-2024 08:52-0400Body kiabzs781.1 cmMarc Dolce DPM [employer] Work Phone: 1(419)[address] [place] [address]-11-2024 08:52-0400Body mass index (BMI) [Ratio]42.43 kg/m2Shyam Dolestefani DPM FACFAS Work Phone: [facility] HospitalSueulphsak02-37-0537 08:52-0400Body joylyl827.67 kgShyam Dolestefani DPM FACFAS Work Phone: [facility] HospitalHicrtehlzo38-30-3997 08:52-0400Diastolic blood rkpbmujo65 mm[Hg]Shyam Freeman DPM FACFAS Work Phone: [facility] HospitalLmgvhckmng76-20-1712 08:52-0400Heart rate73 /min Shyam Freeman DPM [employer] Work Phone: [phone] HospitalLlynqqmdin76-49-0229 08:52-0400Systolic blood mm[Hg]Shyam Freeman DPM FAC[employer]AS Work Phone: [facility] HospitalHgeptsfpxu71-07-0937 10:17-0400Body iztfxe807.1 cmBassam Brown DPM Work Phone: [facility] HospitalLrrtzongna34-19-4062 10:17-0400Body mass index (BMI) [Ratio]42.43 kg/w4Nwhnlnzm Brown DPM Work Phone: [facility] HospitalPbcgmkejhs21-71-2681 10:17-0400Body etfltl319.67 kgBassam Brown DPM Work Phone: [facility] HospitalPdaugmexqm37-64-7253 10:17-0400Diastolic blood osijastt13 mm[Hg]Bassam Aguilar DPM Work Phone: [facility] HospitalEjqnoyltqw53-99-9225 10:17-0400Heart rate83 /min Bassam Aguilar DPM Work Phone: [facility] HospitalJecitaoeey84-28-7823 10:17-0400Systolic blood aeoaxckf261 mm[Hg]Bassam Aguilar DPM Work Phone: [facility] HospitalCmacisnnxz57-58-8607 08:50-0400Body mtzodt754.2 cmChiqui Robles MD Work Phone: [facility]07-17-2024 08:50-0400Body mass index (BMI) [Ratio]42.28 kg/g4NzzisnnChiqui Robles MD Work Phone: 1()[phone]07-17-2024 08:50-0400Body fukmvz370.47 kgChiqui Robles MD Work Phone: [phone]()[phone]07-17-2024 08:50-0400Diastolic blood mm[Hg]Chiqui Robles MD Work Phone: [phone]()[phone]07-17-2024 08:50-0400Heart rate61 /min Chiqui Robles MD Work Phone: [phone]()[phone]07-17-2024 08:50-5767WdZ5% (BldA) [Mass fraction]95 %Chiqui Robles MD Work Phone: [phone]()[phone]07-17-2024 08:50-0400Systolic blood npuniyjh955 mm[Hg]Chiqui Robles MD Work Phone: [phone]()[phone]05-23-2024 13:41-0400Body .2 cmRuslan Araujo MD, PhD Work Phone: [phone]()[phone]05-23-2024 13:41-0400Body mass index (BMI) [Ratio]42.29 kg/m2Ruslan Araujo MD, PhD Work Phone: [phone]()[phone]05-23-2024 13:41-0400Body temperature 97.39 [degF]Ruslan Araujo MD, PhD Work Phone: [phone]()[phone]05-23-2024 13:41-0400Body jfbarl726.47 Adilene Araujo MD, PhD Work Phone: [phone]()[phone]05-23-2024 13:41-0400Diastolic blood hgnbgebl98 mm[Hg]Ruslan Araujo MD, PhD Work Phone: [phone]()[phone]05-23-2024 13:41-0400Heart rate62 /min Ruslan Araujo MD, PhD Work Phone: [phone]()[phone]05-23-2024 13:41-3521HuX7% (BldA) [Mass fraction]94 %Ruslan Araujo MD, PhD Work Phone: [facility]05-23-2024 13:41-0400Systolic blood avydgumw008 mm[Hg]Ruslan Araujo MD, PhD Work Phone: [facility]04-29-2024 12:17-0400Body .74 kgFrancoise Singletary MD Work Phone: cB[facility] HospitalSjuimc29-14-1892 12:17-0400Diastolic blood ssopkoab97 mm[Hg]Francoise Singletary MD Work Phone: cB[facility] HospitalLwzofc94-26-7430 12:17-0400Heart rate80 /min Francoise Singletary MD Work Phone: cB[facility] HospitalGkmwap33-43-1455 12:17-0400Systolic blood mm[Hg]Francoise Singletary MD Work Phone: cB[facility] HospitalZgqaer76-10-9191 11:00-0500Body yjeclb302.64 cmTondra Mapus Other [facility]12-04-2023 11:00-0500 Body mass index (BMI) [Ratio]44.91 kg/s1Nciyxe Mapus Other [employer] Other 12-04-2023 11:00-0500Body gshhep747.24 kgTondra Mapus Other [employer] Other 12-04-2023 11:00-0500Body ropicm561.23 kg Scarlet Johnson Work Phone: [facility]12-04-2023 11:00-0500 Diastolic blood mm[Hg]Tondra Mapus Other [facility]12-04-2023 11:00-0500 Respiratory rate18 /minTondra Middleton Other [employer] Other 12-04-2023 11:00-3336YaX5% (BldA) [Mass fraction]99 % Aldo Middleton Other [employer] Other 12-04-2023 11:00-0500Systolic blood sdzczqos172 mm[Hg] Aldo Middleton Other [facility]11-16-2023 13:45-0500 Body .64 cmMaadamaris Soni Other [facility]11-16-2023 13:45-0500 Body mass index (BMI) [Ratio]44.22 kg/y5VmdwryoEligio Soni Other [employer] Other [id number] 13:45-0500Body lzuxxznmbfn77.4 [degF] Eligio Soni Other [employer] Other 11-16-2023 13:45-0500Body iannaq059.29 kgMaadamaris Soni Other [employer] Other 11-16-2023 13:45-0500Body .28 kgMD Scarlet Websteright Work Phone: [facility]11-16-2023 13:45-0500 Diastolic blood aytcyqpi64 mm[Hg]Eligio Soni Other [facility]11-16-2023 13:45-0500 SaO2% (BldA) [Mass fraction]97 %Eligio Soni Other [employer] Other 11-16-2023 13:45-0500Systolic blood zdoqzthr557 mm[Hg] Eligio Soni Other [facility]05-30-2023 10:00-0400 Body ierbfc487.64 cmTerry Kelley Other [employer] Other 05-30-2023 10:00-0400Body mass index (BMI) [Ratio] 43.61 kg/l5TgtzkqTerry Kelley Other [employer] Other 05-30-2023 10:00-0400Body biglch970.56 kgTerry Kelley Other [employer] Other 05-30-2023 10:00-0400Diastolic blood dupqnuws86 mm[Hg] Terry Kelley Other [employer] Other 05-30-2023 10:00-0400Respiratory rate20 /minDgina Kelley Other [employer] Other 05-30-2023 10:00-3955WaR8% (BldA) [Mass fraction]96 % Terry Kelley Other [employer] Other 05-30-2023 10:00-0400Systolic blood lvytjsrz716 mm[Hg] Terry Kelley Other [employer] Other 05-09-2023 09:45-0400Body iotear374.72 cmTondra Mapus Other [employer] Other 05-09-2023 09:45-0400Body mass index (BMI) [Ratio] 41.32 kg/d1Aghyqo Mapus Other [employer] Other 05-09-2023 09:45-0400Body kafvid138.29 kgTondra Mapus Other [employer] Other 05-09-2023 09:45-0400Diastolic blood mm[Hg] Tondra Mapus Other [employer] Other 05-09-2023 09:45-0400Respiratory rate18 /minTondra Mapus Other [employer] Other 05-09-2023 09:45-1557GoZ1% (BldA) [Mass fraction]97 % Tondra Mapus Other [employer] Other 05-09-2023 09:45-0400Systolic blood gntaonsa699 mm[Hg] Tondra Mapus Other [employer] Other 04-14-2023 12:15-0400Body rytsfy458.72 cmDawn Fitt Other [employer] Other 04-14-2023 12:15-0400Body mass index (BMI) [Ratio] 40.71 kg/m2Dawn Fitt Other [employer] Other 04-14-2023 12:15-0400Body thfyxd671.47 kgDawn Fitt Other [employer] Other 03-30-2023 11:15-0400Body rrihhu450.72 cmTerry Kelley Other [employer] Other 03-30-2023 11:15-0400Body mass index (BMI) [Ratio] 40.96 kg/w3Fmihtg [employer] Other [employer] Other 03-30-2023 11:15-0400Body jdgend536.2 kgTerry Kimblediff Other [employer] Other 03-30-2023 11:15-0400Diastolic blood mm[Hg] Terry Kimblediff Other [employer] Other 03-30-2023 11:15-0400Respiratory rate18 /minDgina Kimblediff Other [employer] Other 03-30-2023 11:15-4939JmX6% (BldA) [Mass fraction]98 % Terry Kimblediff Other [employer] Other 03-30-2023 11:15-0400Systolic blood mm[Hg] Terry Kimblediff Other [employer] Other 02-16-2023 12:15-0500Body hyljsb745.72 cmDawn Fitt Other [employer] Other 02-16-2023 12:15-0500Body mass index (BMI) [Ratio] 42.22 kg/m2Dawn Fitt Other [employer] Other 02-16-2023 12:15-0500Body yiwxis761.96 kgDawn Fitt Other [employer] Other 02-10-2023 11:15-0500Body hfadbq411.72 cmAugustnikolai Kelley Other [employer] Other 02-10-2023 11:15-0500Body mass index (BMI) [Ratio] 41.96 kg/h4YdlwqoTerry Kelley Other [employer] Other 02-10-2023 11:15-0500Body nhkquz815.19 kgTerry Kelley Other [employer] Other 02-10-2023 11:15-0500Diastolic blood rzsomrro13 mm[Hg] Terry Kimblediff Other [employer] Other 02-10-2023 11:15-0500Respiratory rate18 /minDgina Kelley Other [employer] Other 02-10-2023 11:15-3335AoB9% (BldA) [Mass fraction]99 % Terry [employer] Other [employer] Other 02-10-2023 11:15-0500Systolic blood sprowfqg472 mm[Hg] Terry Kelley Other [employer] Other 01-30-2023 10:15-0500Body mcgizd459.72 cmTondra Mapus Other [employer] Other 01-30-2023 10:15-0500Body mass index (BMI) [Ratio] 42.58 kg/n0Rbjjnt [employer] Other [employer] Other 01-30-2023 10:15-0500Body .05 kgTondra Mapus Other [employer] Other 01-30-2023 10:15-0500Diastolic blood eeoomgua11 mm[Hg] Tondra Mapus Other [employer] Other 01-30-2023 10:15-0500Respiratory rate18 /minTondra Mapus Other [employer] Other 01-30-2023 10:15-1078VcF0% (BldA) [Mass fraction]98 % Tondra Mapus Other [employer] Other 01-30-2023 10:15-0500Systolic blood ybbfiyxz006 mm[Hg] Tondra Mapus Other [employer] Other 01-10-2023 15:00-0500Body crtajf489.72 cmDawn Fitt Other [employer] Other 11-02-2022 16:15-0400Body .72 cmDawn Fitt Other [employer] Other 10-19-2022 12:00-0400Body wdksqa118.72 cmTondra Mapus Other [employer] Other 10-19-2022 12:00-0400Body mass index (BMI) [Ratio]40.9 kg/b3Qrsbjh [employer] Other [employer] Other 10-19-2022 12:00-0400Body wgdnce045.02 kgTondra Mapus Other [employer] Other 10-19-2022 12:00-0400Diastolic blood uzieyhgw19 mm[Hg] Tondra Mapus Other [employer] Other 10-19-2022 12:00-0400Respiratory rate20 /minTondra Mapus Other [employer] Other 10-19-2022 12:00-9889EtJ7% (BldA) [Mass fraction]97 % Tondra Mapus Other [employer] Other 10-19-2022 12:00-0400Systolic blood vksozkob960 mm[Hg] Tondra Mapus Other [employer] Other 08-31-2022 10:45-0400Body ofbsrz903.72 cmDawn Fitt Other [employer] Other 07-14-2022 12:00-0400Body prkzli977.72 cmTondra Mapus Other [employer] Other 07-14-2022 12:00-0400Body mass index (BMI) [Ratio] 39.67 kg/z1Skadcu [employer] Other [employer] Other 07-14-2022 12:00-0400Body kyuout708.34 kgTondra Mapus Other [employer] Other 07-14-2022 12:00-0400Diastolic blood zgiketwp22 mm[Hg] Tondra Mapus Other [employer] Other 07-14-2022 12:00-0400Respiratory rate20 /minTondra Mapus Other [employer] Other 07-14-2022 12:00-1649GzI2% (BldA) [Mass fraction]97 % Tondra Mapus Other [employer] Other 07-14-2022 12:00-0400Systolic blood vtxrioet695 mm[Hg] Tondra Mapus Other [employer] Other 01-13-2022 12:00-0500Body ilibdt333.72 cmTondra Mapus Other [employer] Other 01-13-2022 12:00-0500Body mass index (BMI) [Ratio] 40.14 kg/o7Bftzwk [employer] Other [employer] Other 01-13-2022 12:00-0500Body yidamn430.75 kgTondra Mapus Other [employer] Other 01-13-2022 12:00-0500Diastolic blood mxwxxyiv96 mm[Hg] Tondra Mapus Other [employer] Other 01-13-2022 12:00-0500Respiratory rate20 /minTondra Mapus Other [employer] Other 01-13-2022 12:00-7803KdQ2% (BldA) [Mass fraction]97 % Tondra Mapus Other [employer] Other 01-13-2022 12:00-0500Systolic blood mm[Hg] Tondra Grantus Other [employer] Other 10-13-2021 15:45-0400Body llaifb133.72 cmDaradha Zero Motorcyclesaminta Other [employer] Other 10-13-2021 15:45-0400Body mass index (BMI) [Ratio] 38.77 kg/s8Wrhxf Joaquina Other [employer] Other 10-13-2021 15:45-0400Body lnwver672.67 kgDavikarli Kunz Other [employer] Other 03-08-2018 15:17-0500Body msiwtw238.18 cmMD Millard Alex Work Phone: [facility] Encounters Encounter DateEncounter TypeCare ProviderFacilityStart: 07-55-0080wivhxdeaseJhrj L SchwabFacility:[facility] CenterevueStart: 65-17-6630bakrlvfehoJodn L Karl Facility:[facility]Start: 18-72-5254dwmmevebqkXkhz L SchwabFacility:[facility] CenterevueStart: 08-12-2025 End: 95-20-2402Ddsnnprto encounterNictresa Aguilar DPM Work Phone: noms [facility] PodiatryStart: 08-07-2025 End: 08-87-5173Lgjbib flowsheetBassam Aguilar DPM Work Phone: noms PODIATRYStart: 08-07-2025 End: 02-13-0764Hwcwln flowsOmari Aguilar DPM Work Phone: noms PODIATRYStart: 08-07-2025 End: 34-59-3989Rctiow outpatient visit 15 minutesNicholas A Brown DPM Work Phone: noms CI PODIATRYComment on above:Chronic ulcer of left leg with fat layer exposed (HCC) (Primary Dx); Diabetes 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, unspecified whether longterm insulin use (HCC); Foot ulcer, right, with fat layer exposed (HCC); Venous insufficiency; 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)Start: 08-07-2025 End: 01-17-2948ivojkcipbpRVOFXZAC A BROWNNot AvailableStart: 08-06-2025 [facility]ertart: 07-31-2025 End: 46-09-3993Ytxltp flowsheetNicholas Boom Calvin DPM Work Phone: noms CI PODIATRYStart: 07-31-2025 End: 49-14-4934Itrnyb flowsheetNicholas A Calvin DPM Work Phone: noms CI PODIATRYStart: 07-31-2025 End: 49-60-2218Sxkrhvw encounter procedureBassam Nur Calvin DPM Work Phone: noms CI PODIATRYComment on above:Diabetes 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, 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 (HCC) (Primary Dx); Foot ulcer, right, with fat layer exposed (HCC)Start: 07-31-2025 End: 99-53-9864zcfwtfdrfrDKVCWQEL A BROWNNot AvailableStart: 07-24-2025 End: 52-64-1607Lyenat follow up visit related to original pxOlenaas Boom Calvin DPM Work Phone: noms CI PODIATRYComment on above:Osteomyelitis of ankle or foot, acute, right (HCC) (Primary Dx); Cellulitis of right foot; Diabetes 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, 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 (HCC); Foot ulcer, right, with fat layer exposed (HCC)Start: 07-24-2025 End: 96-95-3620Wnnggn flowsmaikMargaritoholas Boom Brown DPM Work Phone: noms CI PODIATRYStart: 07-24-2025 End: 19-73-1292Whtbbo flowsheetNicholas Boom Brown DPM Work Phone: noms PODIATRYStart: 07-24-2025 End: 72-49-6817ykvxrdjbpwLAGRHGGC A BROWNNot AvailableStart: 07-21-2025 End: 29-75-7902buisiateenAjsr L SchwabFacility:FTMCStart: 07-17-2025 End: 85-56-2106Xkmqof flowsheetNicholas A Brown DPM Work Phone: noms CI PODIATRYStart: 07-17-2025 End: 85-25-2636Wbbhtr flowsheetNicholas A Brown DPM Work Phone: noms PODIATRYStart: 07-17-2025 End: 15-55-5600Rifdki follow up visit related to original pxMargaritoholmariann Aguilar DPM Work Phone: noms PODIATRYComment on above:Osteomyelitis of ankle or foot, acute, right (HCC) (Primary Dx); Cellulitis of right foot; Diabetes 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, unspecified whether longterm insulin use (HCC); Venous insufficiencyStart: 07-17-2025 End: 75-63-2449fbxtzsgxcbICNJGNIB Boom BROWNNot AvailableStart: 07-08-2025 End: 37-43-0027Vgutbk follow up visit related to original pxBassam Aguilar DPM Work Phone: noms Bess Saxena PodiatryComment on above: Diabetes 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, unspecified whether longterm insulin use (HCC) (Primary Dx); Cellulitis of right foot; Osteomyelitis of ankle or foot, acute, right (HCC)Start: 07-08-2025 End: 98-13-9421rgvsuvifgfTFMCRCLV Boom BROWNNot AvailableStart: 07-08-2025 End: 30-65-8536Izdosg flowsheetNicholas A Brown DPM Work Phone: NOMS [facility]ena PodiatryStart: 07-08-2025 End: 86-57-1224Ttdfpi Mio Aguilar DPM Work Phone: noms [facility] PodiatryStart: 07-07-2025 End: 88-49-7521zwkvtmsdetPgxv L SchwabFacility:CD:[id number]: 07-03-2025 Non-patient / Non-visitNat Weldon APRN-[facility] Work Phone: Start: 07-03-2025 End: 29-29-1528Tscxbklboo and management of inpatientFiras Seffo Facility:[facility]: 06-24-2025 End: 38-97-7947blqzuxwoxiNEGMTWFBethesda North Hospitaltart: 06-19-2025 End: 03-42-5765legmcxoojgJzlx L SchwabFacility:FTMCStart: 06-18-2025 End: 75-57-6022Oqwqhp flowsGwyn Joshua CCC-A Work Phone: noms Leonardo AudiologyStart: 06-18-2025 End: 22-42-9415Lypleb flowsGwyn Sanchezill CCC-A Work Phone: noms Leonardo AudiologyStart: 06-18-2025 End: 76-82-6451Qahaftpt SupportDejf Joshua CCC-A Work Phone: noms Leonardo AudiologyComment on above:Asymmetrical sensorineural hearing loss (Primary Dx)Start: 05-22-2025 End: 43-84-8885Rfjzku Mio Aguilar DPM Work Phone: noMS CI PODIATRYStart: 05-22-2025 End: 12-84-3238Rislqa Mio Aguilar DPM Work Phone: noms CI PODIATRYStart: 05-22-2025 End: 44-49-3929Ppfvicf encounter procedureBassam Aguilar DPM Work Phone: noms CI PODIATRYComment on above:Diabetes 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, 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 (HCC) (Primary Dx); Pain due to onychomycosis of toenails of both feet; Venous insufficiency; Amputation of toe of right footStart: 05-22-2025 End: 17-88-7663cmxyrqrrwlNZXSMHXP A BROWNNot AvailableStart: 05-21-2025 End: 01-91-4174Kudysi flowsEmiliana Smith DPM Work Phone: noms Bess PodiatryStart: 05-21-2025 End: 19-87-0180Mxtiir flowsEmiliana Smith DPM Work Phone: noms Bess PodiatryStart: 05-21-2025 End: 44-12-8932Fpsjsb outpatient visit 25 minutesGabriela Smith DPM Work Phone: noms [place] PodiatryComment on above:Diabetes 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, 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 (HCC) (Primary Dx); Neuropathy; Right foot painStart: 05-21-2025 End: 87-80-6575bprmagwsdiHIUPVPIHN H SMITHNot AvailableStart: 05-20-2025 End: 47-20-2124jhtcqbjjgvKpdx L SchwabFacility:[facility] BellevueStart: 05-19-2025 End: 68-99-3021Pxvadojpn encounterGabriela Smith DPM Work Phone: noms Bess PodiatryStart: 05-15-2025 End: 05-98-9228hsoypahfwcGwye L SchwabFacility:[facility] BellevueStart: 05-14-2025 End: 57-76-4878ggrpzbfwvvEagaa B Ott PT Work Phone: noms [place] [facility] TherapyComment on above: Cervicalgia (Primary Dx); Imbalance; Unsteadiness on feet; Frequent fallsStart: 05-14-2025 End: 75-67-7465Jfzzxf flowsheetDavid B Catalina PT Work Phone: noms [facility] Physical TherapyStart: 05-14-2025 End: 99-53-9098Hnyxds flowsheetDavid B Catalina PT Work Phone: noms [facility] TherapyStart: 05-07-2025 End: 06-09-3731vsorqqzquwGactl B Catalina PT Work Phone: noms [facility] Physical TherapyComment on above: Cervicalgia (Primary Dx); Imbalance; Unsteadiness on feet; Frequent fallsStart: 05-07-2025 End: 34-45-9001Npmjub flowsheetDavid B Catalina PT Work Phone: noms [facility] TherapyStart: 05-07-2025 End: 55-36-8200Ehebzr flowsheetDavid B Catalina PT Work Phone: noMS [facility] Physical TherapyStart: 05-01-2025 End: 61-41-7381Vzmmze outpatient visit 25 minutesGabriela Smith DPM Work Phone: noms [place] PodiatryComment on above:Diabetes 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, unspecified whether longterm insulin use (HCC) (Primary Dx); Neuropathy; Right foot painStart: 05-01-2025 End: 41-04-9717xqsapuyurpLSCQOREQE H SMITHNot AvailableStart: 04-30-2025 End: 72-35-6347Gbpbco outpatient visit 25 minutesDavid Wong MD Work Phone: noms CI ENTComment on above:Imbalance (Primary Dx); Asymmetric SNHL (sensorineural hearing loss); Cochlear hydrops of right earStart: 04-30-2025 End: 74-14-1055rotwyurudfCSOOOQ H TIMMISNot AvailableStart: 04-30-2025 End: 21-53-3266Xsqpke Shanique Wong MD Work Phone: NOMS CI ENTStart: 04-30-2025 End: 31-14-5209Ufqjxt flowsDanilo Wong MD Work Phone: NOMS CI ENTStart: 04-29-2025 End: 25-47-2209fernsqvzkcDkyvb B Catalina PT Work Phone: [phone] NM PTComment on above:Cervicalgia (Primary Dx); Imbalance; Unsteadiness on feet; Frequent fallsStart: 04-23-2025 End: 96-08-7528Eqyqut flowsheetDavid B Catalina PT Work Phone: [phone] NM PTStart: 04-23-2025 End: 07-59-2417Asrcdw flowsheetDavid B Catalina PT Work Phone: [phone] NM PTStart: 04-23-2025 End: 95-50-3867jgmoguzgwhVxfui B Catalina PT Work Phone: [phone] NM PTComment on above:Cervicalgia (Primary Dx); Imbalance; Unsteadiness on feet; Frequent fallsStart: 04-15-2025 End: 70-57-7557Ncioww flowsheetDavid B Catalina PT Work Phone: [phone] NM PTStart: 04-15-2025 End: 66-44-7560Jmiwfi flowsheetDavid B Catalina PT Work Phone: [phone] NM PTStart: 04-15-2025 End: 92-51-7413ehugqexaorCxvnk B Catalina PT Work Phone: NOMS NM PTComment on above:Cervicalgia (Primary Dx); Imbalance; Unsteadiness on feet; Frequent fallsStart: 04-14-2025 End: 24-56-6954znqyisuedqLylj L SchwabFacility:[facility] BellevueStart: 04-09-2025 End: 08-33-2992whyannbvlcYrdk L SchwabFacility:[facility] BellevueStart: 04-08-2025 End: 88-30-2620Zisgxifze Result Florinda Wong MD Work Phone: noms External Department UnsolicitedStart: 04-08-2025 End: 35-49-0435Qnvhreykc Result EncounterDavid Wong MD Work Phone: noms External Department UnsolicitedStart: 04-03-2025 End: 31-33-0926osqymmvzkfKlwelacy H Ross Work Phone: [facility] Work Phone: Start: 04-03-2025 End: 67-29-3630Jpwyxyu encounter procedureCentervilleboom [facility] Work Phone: start: 03-31-2025 End: 72-97-3492Xzsjir flowsDanilo Wong MD Work Phone: noms ENT NORWALKStart: 03-31-2025 End: 78-44-6429Tdhvyc Shanique Wong MD Work Phone: noms ENT NORWALKStart: 03-31-2025 End: 68-56-2021Irhlyv outpatient new 45 minutesDavid Wong MD Work Phone: noms ENT NORWALKComment on above:Imbalance (Primary Dx); Asymmetric SNHL (sensorineural hearing loss); Class 3 severe obesity due to excess calories without serious comorbidity with body mass index (BMI) of 45.0 to 49.9 in adult ([facility]); ClaustrophobiaStart: 03-31-2025 End: 82-70-8355hislwzpxilDDFJEC H TIMMISNot AvailableStart: 03-28-2025 End: 23-43-0479Glcjaeklaudia Joshua [facility] Work Phone: [facility] AUDIOLOGYStart: 03-28-2025 End: 41-83-3026Huhqpnklaudia Joshua [facility] Work Phone: [facility] AUDIOLOGYStart: 03-28-2025 Preprocedural examination Renato Wong MD Work Phone: [facility]Start: 03-28-2025 End: 05-11-9310Obmhefsu SupportCara Joshua [facility] Work Phone: [facility] AUDIOLOGYComment on above: Asymmetrical sensorineural hearing loss (Primary Dx); Tinnitus, bilateral; Balance problemStart: 03-26-2025 End: 20-39-5175Czautcr encounter procedureAldo Shady [place] REAL ESTATE LISTING CONSULTANT-C-[facility] Work Phone: Start: 03-20-2025 End: 53-02-1245fmtoxfxxhdNFFDMMVBethesda North Hospitaltart: 03-19-2025 End: 93-61-0802vcbgczcycnYhtknzlb H Ross Work Phone: [facility] Work Phone: Start: 03-19-2025 End: 08-04-4912Nikouzn encounter procedureDeo Hickman Work Phone: [facility] Physician [facility] V[facility] Surgery [place] Work Phone: Start: 76-22-1514rxxbtmorsnGegs L SchwabFacility:[facility] BellevueStart: 03-13-2025 End: 32-95-5326Tdlvjcf encounter procedureDeo Hickman Work Phone: [facility] Work Phone: Start: 03-13-2025 End: 97-48-9793ibjumuhwrqLghyagnw H Ross Work Phone: [facility] Work Phone: Start: 03-13-2025 End: 25-68-5873srfaazrwwrGrzkpbqboWadsworth-[facility]man Hospital Work Phone: Start: 03-13-2025 End: 21-95-4056Sqwcjec [facility]Northern [facility] Neuro[facility] Work Phone: start: 03-13-2025 End: 37-20-5485yrwxitdxjhFskmdh E. RossFacility:[facility] BellevueStart: 03-11-2025 End: 10-34-2155qctwpygnauKaax L SchwabFacility:[facility] BellevueStart: 03-06-2025 End: 05-50-4252Zyxbmh Mio Aguilar DPM Work Phone: noms CI PODIATRYStart: 03-06-2025 End: 73-63-7721Eopval flowsOmari Aguilar DPM Work Phone: noms CI PODIATRYStart: 03-06-2025 End: 44-49-0563achnahrmgyYfnqrlij Talal SarminiFacility:[place] DHStart: 03-06-2025 End: 08-78-3387Amyqqpg encounter procedureBassam Aguilar DPM Work Phone: noms CI PODIATRYComment on above:Diabetes 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, unspecified whether longterm insulin use (CMS/HCC) (Primary Dx); Pain due to onychomycosis of toenails of both feet; Venous insufficiency; Amputation of toe of right foot (CMS/HCC)Start: 03-06-2025 End: 82-87-4394opxwnpznjxGWPVSBXT A BROWNNot AvailableStart: 02-24-2025 ambulatoryJodi L SchwabFacility:CD:[id number]: 02-18-2025 End: 40-01-5120jgzddshwtgMraqiv E. RossFacility:[facility] BellevueStart: 02-10-2025 End: 37-15-7962khrbidpzypWvuksnuDavid Mac MDFacility:PM [place] Start: 02-04-2025 End: 05-01-4443ptqneqxbfcMbuhtm E. RossFacility:FTMCStart: 01-20-2025 End: 08-14-1379mqoxjndmxvJytkgu E. RossFacility:[facility] BellevueStart: 01-20-2025 End: 23-51-2954vqtkgrhqwgUjuogvk Vytautas Giedraitis MDFacility:PM [place] Start: 01-13-2025 End: 40-71-5031fwoxnamoujOeyjxpb Vytautas Giedraitis MDFacility:PM [place] Start: 01-01-2025 End: 12-08-9675xdrdqaynaoKzqytysc Talal SarminiFacility:Madeline DHStart: 12-19-2024 End: 43-55-1713auxlafcxajMOCTDR [facility] Hospitaltart: 12-18-2024 End: 29-96-0244tvfroqycjnNCQLNAdena Fayette Medical Centertart: 12-18-2024 End: 07-11-4744Gfdhfagcr for other preprocedural examinationSRiverside Methodist Hospitaltart: 12-04-2024 End: 80-16-8344nhkkwefstrWgay L SchwabFacility:[facility] BellevueStart: 12-04-2024 End: 55-99-9701ldcktgpborKxohlnar Talal SarminiFacility:FTMCStart: 12-02-2024 End: 47-78-4242wfhtthrptqTvawbbt Vytautas Giedraitis MDFacility:PM [place] Start: 11-27-2024 End: 85-14-6632xgrtlvbhslVildfvvh Talal SarminiFacility:Madeline DHStart: 11-18-2024 End: 46-44-6317uciqycxjbvBufhmp Rohit HickmanFacility:[facility] BellevueStart: 11-12-2024 End: 62-85-2570apaclbebxwQnelzw Rohit RossFacility:[facility] BellevueStart: 11-07-2024 ambulatoryMuhammad SarminiFacility:Madeline DHStart: 44-78-7407vdtbhsbaos Araceli Treadwell COOKFacility:EU WarrenkStart: 11-04-2024 End: 25-84-4750jcsjbpmsvyLkugmq Rohit HickmanFacility:[facility] [place]vueStart: 10-24-2024 End: 32-89-4654smpgzpjdjwMcsstv Rohit RossFacility:[facility] BellevueStart: 10-17-2024 End: 54-35-9498Sjkehu flowsOmari Boom Calvin DPM Work Phone: noMS CI PODIATRYStart: 10-17-2024 End: 45-73-4487Qozdan flowsmaikBassam Boom Calvin DPM Work Phone: NOMS CI PODIATRYStart: 10-17-2024 End: 50-96-2183Dchsetw encounter procedureMargaritopanchitomariann Nur Calvin DPM Work Phone: noms CI PODIATRYComment on above:Diabetes 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, 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 ([facility]) (Primary Dx); Pain due to onychomycosis of toenails of both feet; Venous insufficiencyStart: 10-17-2024 End: 78-39-5521uicyjdiqdgSXMXELPT A BROWNNot AvailableStart: 10-15-2024 End: 02-76-0974vwygxzxouuWnrvhs Rohit RossFacility:[facility] BellevueStart: 09-09-2024 End: 87-25-2143nseisbrtafDxuvsq ESuzie RossFacility:FTMCStart: 09-09-2024 End: 73-87-5318qnvibcdiscKvshrwp Vytautas Giedraitis MDFacility:PM [place] Start: 09-02-2024 End: 96-40-6505edmkgcjehbLhpxbjs Vytautas Giedraitis MDFacility:PM [place] Start: 08-29-2024 End: 86-48-5151Trqofl flowsheetChristopher Lalo DO Work Phone: NOMS NE NEUROStart: 08-29-2024 End: 36-44-1436Gzxrso flowsheetChristopher Lalo DO Work Phone: NOMS NE NEUROStart: 08-29-2024 End: 06-31-0130Kdgiqx outpatient new 45 minutesChristopher Lalo DO Work Phone: noms NE NEUROComment on above:Right foot pain (Primary Dx); Diabetic polyneuropathy associated with type 2 diabetes mellitus (CMS/HCC)Start: 08-29-2024 End: 01-87-7445iarvqjznoxXJPUJGUQVDJ HASSETTNot AvailableStart: 08-15-2024 End: 33-18-7448dpxjceljmkZkwxoh E. RossFacility:[facility]ertart: 08-14-2024 End: 99-93-6585vqsmvhsfjnSEYNNB E ROSSFacility:[facility] Hospitaltart: 08-14-2024 End: 06-03-7619Wkinthd encounter procedureChiqui Robles MD Work Phone: Neurology PainComment on above:Complex regional pain syndrome type II of right lower limb; Chronic toe pain, right foot; Class 3 severe obesity with serious comorbidity and body mass index (BMI) of 40.0 to 44.9 in adult,unspecified obesity type ([facility])Start: 08-08-2024 End: 46-86-5876Lnlnnk Mio Aguilar DPM Work Phone: noms CI PODIATRYStart: 08-08-2024 End: 19-30-9090Bsjciq Mio Aguilar DPM Work Phone: noms CI PODIATRYStart: 08-08-2024 End: 97-29-7743Bldhwl outpatient visit 15 Sabiha Aguilar DPM Work Phone: noms CI PODIATRYComment on above:Amputation of toe of right foot (CMS/HCC) (Primary Dx); Diabetes 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, 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 (CMS/HCC); Pain due to onychomycosis of toenails of both feetStart: 08-07-2024 End: 62-43-7822izuvnseaabUISUFSouthview Medical Centertart: 08-06-2024 End: 79-06-5063Ybokor flowsRadha Mcwilliams DO Work Phone: NOMS ORTHOStart: 08-06-2024 End: 34-81-6389Matnyr flowsheetMichael T Mcwilliams DO Work Phone: NODJ ORTHOStart: 08-06-2024 End: 61-44-4708Uxrkhes encounter procedureMichael T Mcwilliams DO Work Phone: noms NB ORTHOComment on above:Internal derangement of left shoulder (Primary Dx); Complete tear of left rotator cuff, unspecified whether traumaticStart: 08-01-2024 End: 81-73-4740yfbcqqlrhoVnysjj E. RossFacility:[facility] BellevueStart: 07-31-2024 End: 09-87-6451Zgnirm flowsheetMarc D Dolce DPM FACFAS Work Phone: NOMS ASC PODStart: 07-31-2024 End: 07-70-9516Vsgkxq flowsheetMarc D Dolce DPM FACFAS Work Phone: NOMS ASC PODStart: 07-31-2024 End: 96-87-1518Ifbrgp outpatient visit 15 minutesMarc D Dolce DPM FACFAS Work Phone: NOMS NMA PODComment on above:Acquired deformity of right toe (Primary Dx); Diabetes 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, unspecified whether longterm insulin use ([facility]); Amputation of right great toe ([facility])Start: 07-24-2024 End: 88-33-1047Uzpvtm flowsheetMarc D Dolce DPM FACFAS Work Phone: [facility] PODStart: 07-24-2024 End: 90-69-4999Bfbars flowsheetMarc D Dolce DPM FACFAS Work Phone: [facility] PODStart: 07-24-2024 End: 91-43-4290Gauaxd outpatient visit 25 minutesMarc D Dolce DPM FACFAS Work Phone: [facility] PODComment on above:Acquired deformity of right toe (Primary Dx); Diabetes 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, unspecified whether longterm insulin use ([facility])Start: 07-23-2024 End: 64-15-1246Ldysyl flowsFermin Sanchez DO Work Phone: [facility]OPAEDICSStart: 07-23-2024 End: 81-17-2606Hidwzr flowsheetCooper Sanchez DO Work Phone: [facility]THOPAEDICSStart: 07-23-2024 End: 07-65-2045Vopssz outpatient visit 25 minutesCooper Sanchez DO Work Phone: [facility] ORTHOPAEDICSComment on above:Internal derangement of left shoulder (Primary Dx); Arthritis of left acromioclavicular joint; Complete tear of left rotator cuff, unspecified whether traumatic; Left shoulder pain, unspecified chronicityStart: 07-19-2024 End: 58-14-4709ZucwfvUvejnvh Mijatovic MD Work Phone: Neurology PainComment on above:Med Change Request Start: 07-19-2024 End: 35-68-3423qkgtfntxawQWVATCT [facility] Start: 07-17-2024 End: 17-90-6337fkmebwzqndSuxgohmTang Robles MD Work Phone: Neurology PainComment on above:Medication Question Start: 07-04-2024 End: 00-03-4593Greyokkvu encounterCooper Sanchez DO Work Phone: noms SWS ORTHOComment on above:MRIStart: 07-03-2024 End: 94-68-8275Zqsrgq flowsheetMarc D Dolce DPM FACFAS Work Phone: noms ASC PODStart: 07-03-2024 End: 96-50-5725Phkbqi flowsheetMarc D Dolce DPM FACFAS Work Phone: noms ASC PODStart: 07-03-2024 End: 99-11-6447Chglhy outpatient visit 15 minutesMarc D Dolce DPM FACFAS Work Phone: noms NMA PODComment on above:Acquired deformity of right toe (Primary Dx)Start: 07-01-2024 End: 81-30-4643Fmzbcv flowsheetMaria B Apling SEMI CONDUCTOR ASSEMBLER Work Phone: noms CI ORTHOPAEDICSStart: 07-01-2024 End: 67-11-3384Gbswso flowsheetMaria B Apling SEMI CONDUCTOR ASSEMBLER Work Phone: noms CI ORTHOPAEDICSStart: 07-01-2024 End: 96-45-3979Lzaekl outpatient visit 15 minutesMaria B Apling SEMI CONDUCTOR ASSEMBLER Work Phone: noms CI ORTHOPAEDICSComment on above:Left shoulder pain, unspecified chronicity (Primary Dx); Arthritis of left acromioclavicular joint; Glenohumeral arthritis, left; Impingement of left shoulder; Internal derangement of left shoulderStart: 06-26-2024 End: 45-58-5016sevbvudqmzFBGPXOFOhioHealth Mansfield Hospitaltart: 06-25-2024 End: 43-81-0930Azosre outpatient visit 15 minutesKareem R Dolce DPM FACFAS Work Phone: noms NMA PODComment on above:Acquired deformity of right toe (Primary Dx); Diabetes 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, 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 ([facility]); Venous insufficiency; Non-pressure chronic ulcer of other part of right lower leg with fat layer exposed ([facility])Start: 06-25-2024 End: 89-79-1709Pouead flowsheetKareem R Dolce DPM FACFAS Work Phone: NOM[facility] ASC PODStart: 06-25-2024 End: 29-93-5816Encllk flowsheetKareem R Dolce DPM FACFAS Work Phone: [facility] ASC PODStart: 06-19-2024 End: 71-08-3848Nnjscidwk encounterMarc D Dolce DPM FACFAS Work Phone: NOMS WH PODStart: 06-19-2024 End: 49-67-7270Qkhucd outpatient visit 25 minutesShyam Freeman DPM FACFAS Work Phone: noms NMA PODComment on above:Acquired deformity of right toeStart: 06-18-2024 End: 96-95-9071Umsvwz flowsheetNictresa Boom Brown DPM Work Phone: [facility]S [place] PODStart: 06-18-2024 End: 65-60-8999Ubqzlq flowsheetNicholas Boom Brown DPM Work Phone: noMS [place] PODStart: 06-18-2024 End: 55-26-1416Gsrabm outpatient visit 15 minutesNictresa Aguilar DPM Work Phone: noMS W[place] PODComment on above:Acquired deformity of right toe (Primary Dx); Diabetes 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, 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 ([facility]); Amputation of right great toe ([facility])Start: 06-12-2024 End: 74-28-8881Yxwuvj flowsheetMaria B Apling SEMI CONDUCTOR ASSEMBLER Work Phone: noms CI ORTHOPAEDICSStart: 06-12-2024 End: 50-89-3654Ohhszd flowsheetMaria B Apling SEMI CONDUCTOR ASSEMBLER Work Phone: noms CI ORTHOPAEDICSStart: 06-12-2024 End: 76-21-8425Tqhcdt outpatient visit 25 minutesMaria B Apling SEMI CONDUCTOR ASSEMBLER Work Phone: noms CI ORTHOPAEDICSComment on above:Left shoulder pain, unspecified chronicity (Primary Dx); Arthritis of left acromioclavicular joint; Glenohumeral arthritis, left; Impingement of left shoulderStart: 06-07-2024 End: 33-73-1007Ngmaijlv Chetan Hyde PhD Work Phone: Pain RecoveryComment on above:Adjustment disorder with depressed mood (Primary Dx); Complex regional pain syndrome type II of right lower limb; Chronic toe pain, right footStart: 06-03-2024 End: 63-96-7348Mimreswvw encounterChelle Brandon SEMI CONDUCTOR ASSEMBLER Work Phone: NOJW FB ORTHOPAEDICSStart: 19-64-5806kkxpsyknyvFeyscoy Mijatovic MD Work Phone: Neurology PainComment on above:taking memantine HCL Start: 20-57-2024nqdxuxafgyRbija P Weaver Therapist Work Phone: Pain RecoveryComment on above:next step, resources Start: 66-15-1329C-mail encounter from caregiverMorgan Trinidad Therapist Work Phone: pain RecoveryStart: 05-06-2024 End: 41-14-6208Iocxfkiz HealthMorgan Trinidad Therapist Work Phone: pain RecoveryComment on above:Adjustment disorder with depressed mood (Primary Dx); Complex regional pain syndrome type II of right lower limb; Chronic toe pain, right footStart: 04-24-2024 End: 94-94-2112ncvypeyojvGGBEBG E ROSSFacility:[facility] Hospitaltart: 04-24-2024 End: 61-22-6853Nyghykt encounter procedureChiqui Robles MD Work Phone: Neurology PainComment on above:Adjustment disorder with depressed mood (Primary Dx); Complex regional pain syndrome type II of right lower limb; Chronic toe pain, right foot; Class 3 severe obesity with serious comorbidity and body mass index (BMI) of 40.0 to 44.9 in adult,unspecified obesity type (HCC)Start: 04-03-2024 End: 64-69-1571iyzuuhvkdyORDU A MEKHAILFacility:[facility] Hospitaltart: 24-54-3465Hcclonvcg encounterRuslan Araujo MD, PhD Work Phone: pain ManagementComment on above:Nurse Triage Call Start: 03-08-2024 End: 77-07-5449gjrswlzyykQxmwaw E. RossFacility:FTMCStart: 02-29-2024 End: 42-63-4721rvzcqngebyOUMQ A MEKHAILFacility:[facility] Hospitaltart: 02-29-2024 End: 35-62-4967Rthpblj encounter Cony Araujo MD, PhD Work Phone: pain ManagementComment on above:Chronic toe pain, right foot (Primary Dx); Painful diabetic neuropathy (HCC); Dermatitis of lower extremity; Complex regional pain syndrome type II of right lower limb; Class 3 severe obesity with serious comorbidity and body mass index (BMI) of 40.0 to 44.9 in adult,unspecified obesity type (HCC)Start: 01-28-4449Ekrfopjch encounterFrancoise Singletary MD Work Phone: pain ManagementStart: 02-05-2024 End: 75-00-4662ekiwlcfktjKPUW PARKERFacility:[facility] Hospitaltart: 02-05-2024 End: 85-68-4574Aiahock encounter Minesh Singletary MD Work Phone: pain ManagementComment on above:Chronic toe pain, right foot (Primary Dx); Painful diabetic neuropathy (HCC); Class 3 severe obesity with serious comorbidity and body mass index (BMI) of 40.0 to 44.9 in adult,unspecified obesity type (HCC)Start: 09-12-2023 End: 22-88-8315zsefbilkjeYuwxlu [employer] Other [employer] Other Start: 08-13-6116Ziayuffij encounterTondra MapusFPG EndocrinologyStart: 09-11-2023(DM) DiabetesTondra [facility] Care ClinicStart: 09-11-2023 End: 03-54-7930kokydgrjioMA Kim E Knight Work Phone: noSlyce Other Start: 09-11-2023 End: 99-00-0533Eazzzydtbs RecurringMD Scarlet Johnson Work Phone: [facility] Work Phone: Start: 09-11-2023 End: 96-07-4261Axcttbf encounter procedureMD Scarlet Johnson Work Phone: firsentara [facility] Work Phone: Start: 08-24-2023 End: 36-15-6069Zdjrbyw encounter procedureMD Scarlet Johnson Work Phone: [facility] VascularStart: 08-24-2023 End: 28-82-6006tuhwewkocnMG Scarlet Johnson Work Phone: [facility] Work Phone: Start: 06-31-7659Zzrpsh outpatient new 60 minutes Eligio Chandler Vascular SurgeryStart: 08-24-2023 End: 70-77-6151Xufnlmr encounter procedureMD Scarlet Johnson Work Phone: [facility] Vascular Surgery Work Phone: Start: 06-14-2023 End: 14-01-6412wvqlfgrlmuIzxxrm [employer] Other no[employer]lyce Other Start: 79-33-8476Dwbcabylu encounterTondra [facility] ClinicStart: 06-09-2023 End: 68-15-1239izfuxeiugdUije Fitt Other [employer] Other Start: 79-84-3803Jbtwimn evaluation of patient and reportDawn [facility] Care ClinicStart: 54-80-9686Ciaemrwkqe RecurringMD Scarlet Johnson Work Phone: [facility] Work Phone: Start: 05-31-2023 End: 54-70-6721hhbndcrvkhGaueow [employer] Other [employer]ly[employer] Other Start: 19-96-1038Mlkzwxiis encounterTondra MapusFPG EndocrinologyStart: 03-07-2023 End: 01-94-5680fgefroazxmYlopkg Cundiff Other no[employer]lyce Other Start: 03-11-7132Xpeyvw-up encounterTerry Ascencion [facility] Coordinated Care ClinicStart: 02-17-2023 End: 58-33-6228ejyivmnepkAX MERT WOODARD .Facility:Y4Starb: 02-14-2023(DM) DiabetesTondra MapusFirelands Coordinated Care ClinicStart: 02-14-2023 End: 38-80-4750oofikbtmodVyafrj [employer] Other [employer] Other Start: 01-20-2023([facility] RD FU) [facility] F/U Registerd DieticianDadigna FitKarlothello community hospital Coordinated Care ClinicStart: 01-20-2023 End: 39-59-1177shggifjtfaCfcu Fitt Other [employer] Other Start: 01-05-2023 End: 19-97-1654klqmvbloymMlkeny Ascencion Other no[employer]lyce Other Start: 51-90-5269Yvdiai-up encounterTerry Sheaff [facility]inated Care ClinicStart: 12-30-2022 End: 16-26-6402ukcotfansdIRVCEZL TUCKERFacility:D2Bmwla: 12-29-2022 End: 00-34-3384rjquqyklzgGV BRITTNY MORALESFacility:N5Tpsxz: 12-21-2022 End: 41-30-8999yhwuegdduqAO SCARLET JOHNSON .Facility:A6Tdute: 00-95-2461ujkeymvgqw DR SCARLET JOHNSON .Facility:R8Oxfjq: 12-08-2022 End: 80-18-3001hxdqvwyosrGL MORGAN ROJOFacility:G6Xjxri: 11-25-2022 End: 38-38-0575exqqiehhdeYK TERRY KELLEYFacility:E7Uvvld: 11-24-2022([facility] WMNI) WMN Initial ProviderDawn [facility] Coordinated Care ClinicStart: 11-24-2022 End: 77-61-4610lpegtjuojkOrtt Frandyt Other noSlyce Other Start: 11-22-2022 End: 70-23-7988bwvidkhwwsWttnyf [employer] Other [employer] Other Start: 36-16-7637Lrxyhsd evaluation of patient and reportTondra [facility] Coordinated Care ClinicStart: 11-18-2022 End: 08-74-9664chxjmwucyvTlabpg Cundiff Other no[employer]lyce Other Start: 22-05-5466Gjgmujbop therapyTerry Kelley [facility] Coordinated Care ClinicStart: 11-08-2022 End: 77-77-0516azruyoxkuyWP SCARLET JOHNSON .Facility:U7Mwkuy: 11-07-2022(DM) DiabetesTondrboom [facility] Coordinated Care ClinicStart: 11-07-2022 End: 26-65-3865qowjukkqwyEgwjoq Emi Other noSlyce Other Start: 10-18-2022(RD) Registered DieticianDawstephanie West [facility] Coordinated Care ClinicStart: 10-18-2022 End: 07-84-6018qpyqjqdzgmDqug Fitt Other noSlyce Other Start: 08-18-2022 End: 66-81-8522gnhjokwndhBF BRITTNY MORALESFacility:G1Uccil: 2022([facility] DB FU) [facility] Diabetes F/UDawn FrandyLake District Hospital Coordinated Care ClinicStart: 2022 End: 77-57-1360frtdkzwjgrKS ARACELI Treadwell [facility] [employer] Other Start: 07-29-2022 End: 05-39-8025lyakajljbcMZ SCARLET JOHNSON .Facility:N9Fhtde: 07-27-2022(DM) DiabetesTondra MapusFirelands Coordinated Care ClinicStart: 07-27-2022 End: 84-24-5456ahnbsrrdrfKjpsso [employer] Other [employer] Other Start: 06-08-2022(Stamping Operator) DevinicianCarito West [facility] Coordinated Care ClinicStart: 06-08-2022 End: 42-52-1506cotxyvrbjqJpno Fitt Other no[employer]lyce Other Start: 04-21-2022(DM) DiabetesTondra MapusFirelands Coordinated Care ClinicStart: 04-21-2022 End: 56-67-0336wovoqhbdaeQzmlph [employer] Other [employer] Other Start: 18-93-6416Axghxtipc encounterTondra MapusFPG EndocrinologyStart: 04-07-2022 End: 89-03-4458cowtrcndnwYM SCARLET JOHNSON .Facility:Z5Astku: 10-21-2021(DM) DiabetesTondra MapusFirelands Coordinated Care ClinicStart: 10-21-2021 End: 23-04-6667wnrhfkqkurRkiyeu Map[employer] Other no[employer]ly[employer] Other Start: 58-98-2692Uxwieg outpatient new 45 minutesDavid HykesFPG Gastroenterology Procedures DateProcedureProcedure DetailPerforming ClinicianStart: 08-06-2025 End: 41-14-0482Hdkqzpmobiuzb w/patient 60 minutesKaia Torres PhD Work Phone: Start: 07-23-2025 End: 97-20-7486Pubvoegjwpmet w/patient 60 minutesSavibenjamin Mullenmeghan PhD Work Phone: Start: 06-25-2025 End: 57-80-1100Vvnrkgcmsrtsd w/patient 60 minutesMelbenjamin Mullennejory PhD Work Phone: Start: 06-11-2025 End: 16-74-7730Ueosfycljcthu w/patient 60 minutesKaia Sebasmeghan PhD Work Phone: Start: 05-28-2025 End: 52-69-0608Cuqzetuavgarg w/patient 60 minutesKaia Mullennejory PhD Work Phone: Start: 05-14-2025 End: 19-52-3531Aavnmssxtnl diagnostic evaluationTonsil Hospitalbenjamin Sebasmeghan PhD Work Phone: Start: 22-25-9906XA HEAD/BRAIN WO Sveta Wong MD Work Phone: Start: 31-80-4408BZOTZALB FUNCTION TESTSDejf Nur Skyline CCC-A Work Phone: start: 32-26-3346W-ray of lumbar spine, six views including bending viewsDeo Hickman Work Phone: Start: 28-03-1606Yehpm foot complete minimum 3 views Shyam Freeman DPM FACFAS Work Phone: Start: 28-62-0465Yyvduwtacffxdj aspir&/inj major jt/bursa w/o usMaria B Apling SEMI CONDUCTOR ASSEMBLER Work Phone: Start: 30-90-2212Gtwfak scan of lower limb veinsMD Scarlet Johnson Work Phone: Plan of Treatment DateCare ActivityDetailAuthorStart: 00-30-9120hzmzyxvmwnHrebrkrgbcGzqecrgq:EU NorwalkStart: 10-30-2025 End: 55-50-6128Lseroce encounter ahxpofvny35/22/2026 10:00 AM EST Procedure Visit [facility] [address] [place] [address] Bassam Aguilar DPM [address] [address] N[facility] CI PODIATRYStart: 34-65-5572BxfkllIndiana University Health [facility] Work Phone: Start: 08-21-2025 End: 59-29-6967Tirqhmp encounter cokkfsdow89/13/2025 11:00 AM EST Office Visit [facility] [address] [place] [address] Bassam Aguilar DPM [address] [address] NOMS CI PODIATRYStart: 08-20-2025 End: 94-07-0796Cmobect encounter lmklybxjg96/12/2025 2:45 PM EST Office Visit [facility] [address] [place] [address] Gabriela Smith DPM [address] [place] [address] NOMS Bess PodiatryStart: 08-20-2025 [facility] Work Phone: Start: 08-07-2025 End: 77-84-7975Ukqzlnf encounter procedureNOMS CI PODIATRYComment on above: Diabetes 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, 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 (HCC) (Primary Dx); Foot ulcer, right, with fat layer exposed (HCC)Start: 87-20-7811WohsOrthocolorado [facility] Work Phone: Start: 07-31-2025 End: 61-24-0758Wdtwjdo encounter eusaswikd51/23/2025 1:10 PM EDT Office Visit [facility] [address] [place] [address] Bassam Aguilar DPM [address] [address] Diabetes 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, unspecified whether longterm insulin use (HCC) (Primary Dx); Foot ulcer, right, with fat layer exposed(HCC)[facility] Comment on above:Diabetes 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, unspecified whether longterm insulin use (HCC) (Primary Dx); Foot ulcer, right, with fat layer exposed (HCC)Start: 07-24-2025 End: 80-74-6868Hzttqoz encounter mkitauzqg83/16/2025 2:10 PM EDT Office Visit [facility] [address] [address] Bassam Aguilar DPM [address] [address] Osteomyelitis of ankle or foot, acute, right (HCC) (Primary Dx); Cellulitis of right foot; Diabetes 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, unspecified whether longterm insulin use (HCC)NOMS CI PODIATRYComment on above:Osteomyelitis of ankle or foot, acute, right (HCC) (Primary Dx); Cellulitis of right foot; Diabetes 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, 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 (HCC)Start: 07-23-2025 End: 95-50-1097DtzyOrthocolorado Hospital [facility] St[facility] Work Phone: Start: 07-17-2025 End: 03-34-5202Xartpia encounter rokyqkslt21/09/2025 2:00 PM EDT Office Visit [facility] [address] [address] Bassam Aguilar DPM [address] [address] Osteomyelitis of ankle or foot, acute, right (HCC) (Primary Dx); Cellulitis of right foot; Diabetes 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, unspecified whether longterm insulin use (HCC); Venous insufficiencyNONM REG PODIATRYComment on above:Osteomyelitis of ankle or foot, acute, right (HCC) (Primary Dx); Cellulitis of right foot; Diabetes 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, unspecified whether longterm insulin use (HCC); Venous insufficiencyStart: 07-10-2025 End: 28-31-7651Ixxdmol encounter uumraurkk17/02/2025 3:10 PM EDT Office Visit [facility] 112 [facility] [address] [place] [address] Bassam Aguilar DPM [address] [address] NOMFreida FINNEY PODIATRYStart: 17-53-7717XbxtqiIndiana University Health [facility] Work Phone: Start: 07-08-2025 End: 10-66-9061Xilxzsw encounter qmpwriqog29/30/2025 2:40 PM EDT Office Visit ED [place] [address] [place] [address] Bassam Aguilar DPM [address] [address] Diabetes 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, 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 (HCC) (Primary Dx); Cellulitis of right foot; Osteomyelitis of ankle or foot, acute, right (HCC)ED Saxena PodiatryComment on above:Diabetes 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, 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 (HCC) (Primary Dx); Cellulitis of right foot; Osteomyelitis of ankle or foot, acute, right (HCC)Start: 77-83-0473MvlpbfbvdMercy Healthtart: 62-39-3072Zpqtkrat admissionMercy Healthtart: 63-12-9803Xjzbescz to infectious diseases physician [facility]: 76-93-7250Fdaikmat to market research senior project manager [facility]: 48-99-6390Lctizhde to vascular surgeon [facility]: 06-25-2025 End: 58-94-4069HuiwOrthocolorado Hospital [facility] St. [facility] Work Phone: Start: 06-18-2025 End: 02-37-2319Ygctnxra SupportNOMS CI AUDComment on above:ArrivedStart: 23-84-5247EdchOrthocolorado Hospital At St. [facility] Work Phone: Start: 25-58-1690POHDW-19 Vaccine () COVID-19 Vaccine ()NOMS HealthcareStart: 28-33-0203Dupxbvfhr vaccinationInfluenza Vaccine (#1)NOMS HealthcareStart: 05-28-2025 End: 03-40-4901QstsOrthocolorado Hospital At St. [facility] Work Phone: Start: 05-22-2025 End: 15-04-2379Ihjugeg encounter procedureNOMS CI PODIATRYComment on above: Diabetes 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, unspecified whether longterm insulin use (HCC) (Primary Dx); Pain due to onychomycosis of toenails of both feet; Venous insufficiencyStart: 05-21-2025 End: 86-92-6623Ipjusze encounter procedureNOMS Bess PodiatryComment on above:ArrivedStart: 05-15-2025 End: 26-73-6319Schocst encounter /07/2025 9:20 AM EDT Procedure Visit [facility] 112 [facility] [address] [place] [address] Bassam Aguilar DPM [address] [facility] [address] [place] [address] NOMS CI PODIATRYStart: 05-14-2025 End: 76-18-4247ywsmgofmexRGWZ NM PTStart: 30-79-9404RkxmOrthocolorado Hospital At St. [facility] Work Phone: Start: 05-07-2025 End: 57-44-3241ioejbjqupsOUOV NM PTComment on above:Cervicalgia (Primary Dx); Imbalance; Unsteadiness on feet; Frequent fallsStart: 05-01-2025 End: 60-23-8699Qqdlcww encounter auovnycuf06/24/2025 10:00 AM EDT Office Visit [facility] [address] [place] [address] Gabriela Smith DPM [address] [place] [address] [facility] PODIATRYStart: 04-30-2025 End: 82-07-8271Avvjdnz encounter procedureNOMS CI ENTComment on above:Arrived Start: 04-29-2025 End: 98-45-9920tkyibgazar50/22/2025 1:00 PM EDT Treatment [facility] [address] [place] [address] Morgan Arnold, PT [address] [place] [address] [facility] PTStart: 04-23-2025 End: 11-30-3436ktpcxnfnjc78/16/2025 1:00 PM EDT [facility] [address] [place] [address] Morgan Arnold, PT [address] [place] [address] [facility] PTStart: 04-15-2025 End: 51-54-6473qiivzkctzvCVQU NM PTComment on above:Cervicalgia (Primary Dx); Imbalance; Unsteadiness on feet; Frequent falls; Vestibular dysfunction of both earsStart: 03-31-2025 End: 37-46-5838Xaccmcj encounter procedureNOMS ENT NORWALKComment on above: ArrivedStart: 03-28-2025 End: 77-45-2717Zjnuweju SupportNORNEWYORK-PRESBYTERIAN BROOKLYN METHODIST HOSPITALShady POWELLCT AUDIOLOGYComment on above: ArrivedStart: 89-63-5842Bwlxxhk referralThe Christ Hospital Work Phone: Start: 03-06-2025 End: 74-52-3648Llgipkh encounter cqlisvful54/29/2025 9:10 AM EDT Procedure Visit [facility] [address] [facility] [address] [place] [address] Bassam Aguilar DPM [address] [address] Diabetes 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, unspecified whether longterm insulin use (CMS/HCC) (Primary Dx); Pain due to onychomycosis of toenails of both feet; Venous insufficiency; Amputation of toe of right foot (CMS/HCC)NOMS REG PODIATRYComment on above:Diabetes 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, unspecified whether longterm insulin use (CMS/HCC) (Primary Dx); Pain due to onychomycosis of toenails of both feet; Venous insufficiency; Amputation of toe of right foot (CMS/HCC)Start: 75-13-4280gpqvdewxiwGnxjqsbphv Facility:[facility] BellevueStart: 01-21-2025 End: 75-03-7040Asebvot encounter rurmvobsf02/15/2025 3:10 PM EDT Office Visit [facility] [address] [place] [address] Patricia [place], QUOC [address] [place] [address] NOMS TSR DERMStart: 12-26-2024 End: 82-87-1800Zjdduoc encounter bjvmbfday66/20/2025 11:00 AM EDT Procedure Visit [facility] [address] [facility] [address] [place] [address] Bassam Aguilar DPM [address] [facility] [address] [place] [address] NOMS CI PODIATRYStart: 10-17-2024 End: 00-82-9672Uvbqaug encounter procedureNOMS CI PODIATRYComment on above: Diabetes 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, 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 (CMS/[facility]) (Primary Dx); Pain due to onychomycosis of toenails of both feet; Venous insufficiencyStart: 08-29-2024 End: 79-21-0504Nqrjbog encounter gkzehyaby89/21/2024 9:30 AM EST Office Visit [facility] NE[facility] [address] [place] [address] Matthew May, [address] [place], [place] [address] ArrivedNOMS NE NEUROComment on above:ArrivedStart: 08-27-2024 End: 27-06-7409Tjjcvmu encounter vdmzrdwue18/19/2024 3:15 PM EST Office Visit [facility] [address] [place] [address] Maria Guadalupe Gayle, [address] [place], [place] [address] [facility] ROUTEStart: 08-14-2024 End: 25-16-9404Uoceoib encounter eoqtgxkgw86/06/2024 10:00 AM EST Office Visit Neurology [facility] [address] [facility] [address] Chiqui Robles MD [address] [place] [address] 1 Month Follow UpNeurology PainComment on above:1 Month Follow UpStart: 64-35-9269BLB Vaccine (1 - 1-dose 75+ series)RSV Vaccine (1 - 1-dose 75+ series) [facility]: 08-08-2024 End: 37-70-7306Zucxxaj encounter procedureNOMS CI PODIATRYComment on above: Diabetes 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, 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 (CMS/[facility]) (Primary Dx); Pain due to onychomycosis of toenails of both feet; Amputation of toe of right foot (CMS/HCC)Start: 08-06-2024 End: 57-05-8015Rbjzehf encounter fpgipotob98/29/2024 9:45 AM EDT Office Visit [facility] ORTHO [address] [place] [address] González Mcwilliams, [address] [place] [address] NOMS NB ORTHOStart: 07-31-2024 End: 23-47-3692Zwfebad encounter procedureNOMS NMA PODComment on above:Arrived Start: 07-24-2024 End: 07-65-3747Qokokwo encounter procedureNOMS NMA PODComment on above:Arrived Start: 07-23-2024 End: 13-49-9626Bjvilul encounter procedureNOMS CI ORTHOPAEDICSComment on above: Internal derangement of left shoulder (Primary Dx); Arthritis of left acromioclavicular joint; Complete tear of left rotator cuff, unspecified whether traumaticStart: 07-18-2024 End: 58-22-3030Zesbpdr encounter ixjcbjunl56/10/2024 9:50 AM EDT Procedure Visit [facility] [address] [facility] [address] [place] [address] Bassam Aguilar, DPM [address] [facility] [address] [place] [address] [facility] CI PODIATRYStart: 07-09-2024 End: 64-39-4242Dcbcsds encounter rfvcuplqd25/01/2024 9:45 AM EDT Office Visit [facility] 112 [facility] 150 [place] [address] Cooper Sanchez DO [address] [facility] 150 [place] [address] [facility] CI ORTHOPAEDICSStart: 07-03-2024 End: 20-10-5572Svcxbvnkxpkf / ancillary services jvbpquriwj86/25/2024 2:00 PM EDT Ancillary Procedure [facility] FNR MR [address] [place] [id number] [facility] FNR MRStart: 07-03-2024 End: 92-24-2244Dngsduu encounter procedureNOMS NMA PODComment on above:Arrived Start: 07-02-2024 End: 49-79-2334Yxkamezqiepa / ancillary services xxdqjcapjh40/24/2024 10:15 AM EDT Ancillary Procedure [facility] F[facility] MR [address] [place] [address] FNVA FNR MRStart: 07-01-2024 End: 77-99-2846AR Shoulder - left WO contrastMR shoulder left wo IV contrast Imaging Routine Internal derangement of left shoulder Expected: 07/01/2024 (Approximate), Expires: 07/01/2025[facility] Work Phone: Comment on above:Expected: 07/01/2024 (Approximate), Expires: 07/01/2025Start: 07-01-2024 End: 11-08-8924Hmuzlvb encounter procedureNOMS CI ORTHOPAEDICSComment on above: Left shoulder pain, unspecified chronicity (Primary Dx); Arthritis of left acromioclavicular joint; Glenohumeral arthritis, left; Impingement of left shoulderStart: 06-25-2024 End: 07-59-9008Xlnheue encounter ristkoyhl56/17/2024 2:20 PM EDT Office Visit [facility] NMA POD [address] [place] [address] Levar Freeman, DPM FACFAS [address] [facility] [place] [address] N[facility]S NMA PODStart: 06-24-2024 End: 37-97-4436Inrahia encounter /16/2024 9:15 AM EDT Office Visit [facility] [address] [facility] [address] [place] [address] Apling, Chelle B, SEMI CONDUCTOR ASSEMBLER [address] [place] [address] N[facility] CI ORTHOPAEDICSStart: 06-20-2024 End: 46-11-0253Hvdenyn encounter /12/2024 12:20 PM EDT Procedure Visit [facility] EXT DEP Shyam Freeman, DPM FACFAS [address] [place] [address] N[facility]S EXT DEPStart: 06-19-2024 End: 47-51-9996Mlnpzqh encounter kajsldkly19/11/2024 8:30 AM EDT Office Visit [facility] NMA POD [address] [place] [address] Shyam Freeman, DPM FACFAS [address] [place] [address] N[facility]S NMA PODStart: 06-12-2024 End: 85-42-7209Uayflkc encounter procedureNOMS CI ORTHOPAEDICSComment on above: Left shoulder pain, unspecified chronicity (Primary Dx); Arthritis of left acromioclavicular joint; Glenohumeral arthritis, leftStart: 91-65-0488Fwbix-19 Vaccine ( season)Covid-19 Vaccine ( season)[facility]: 06-09[facility]2024 Influenza vaccinationBlanchard Valley Health System [facility] Hospitaltart: 06-07-2024 End: 42-44-1488tvkurcwoyx39/30/2024 12:30 PM EDT [facility] [address] [place] [address] Isauro Hyde, PhD [address] [place] [address] Trek For SuccessPain RecoveryComment on above:Trek For SuccessStart: 05-06-2024 End: 33-00-4673vhdkmtszie45/29/2024 9:00 AM EDT [facility] [address] [place] [address] Morgan Trinidad, Therapist [address] [place] [address] PAIN PSYCHPain RecoveryComment on above:PAIN PSYCHStart: 04-17-2024 End: 79-93-3658Gaeroul encounter nasffjhih96/10/2024 10:00 AM EDT Office Visit Pain Management [address] [id number] Eufemia Ortiz, TRANG [address] [id number] SUTURAL REMOVALPain ManagementComment on above:SUTURAL REMOVALStart: 04-03-2024 End: 24-07-4216Eyagbzivg to same day surgery glqzmi9604/03/2024 10:00 AM EDT - 04/03/2024 11:05 AM EDT Surgery Pain Management [address] [id number] Ruslan Araujo MD, PhD [address] [place] [address] Right L4 and L5 DRG TrialPain Management Comment on above:Right L4 and L5 DRG TrialStart: 04-03-2024 End: 28-38-7148Wpb impltj nstim electrode array epiduralPERCUTANEOUS IMPLANT LEAD NEUROSTIM EPIDURAL TRIAL Chronic toe pain, right foot Complex regional pain syndrome type II of right lower limb 04/03/2024 10:00 [facility] PCStart: 72-22-3273Nejmiuuxuz hospital visit by tepzjcjnc07/26/2024 10:00 AM EDT Hospital Encounter Pain Management [address] [place] [address] Ruslan Araujo MD, PhD [address] [place] [address] Chronic toe pain, right foot [M79.674, G89.29], Complex regional pain syndrome type II of right lower limb [G57.71]Pain Management Comment on above:Chronic toe pain, right foot [M79.674, G89.29], Complex regional pain syndrome type II of right lower limb [G57.71]Start: 10-09-2023 Advance Directive DiscussionAdvance Directive DiscussionBlanchard Valley [facility] Hospitaltart: 73-72-6177Rpmvbxyqis Health ScreeningBehavioral Health ScreeningWadsworth-Rittman Hospital Start: 24-05-7731Qaqeo-19 Vaccine ( season)Covid-19 Vaccine ( season)[facility]: 84-14-9339Zbqihukgoblj Vaccine: 65+ Years (2 of 2 - PCV)Pneumococcal Vaccine: 65+ Years (2 of 2 - PCV)[facility] Start: 91-92-5000Uewuqiulfqjf Vaccine: 65+ (1 of 1 - PCV)Pneumococcal Vaccine: 65+ (1 of 1 - PCV)[facility]: 34-86-0128UFN Vaccine (1 - 1-dose 60+ series)RSV Vaccine (1 - 1-dose 60+ series)[facility]: 10-17-0570SWK Vaccine (1 - Risk 60-74 years 1-dose series)RSV Vaccine (1 - Risk 60-74 years 1- dose series)[facility]: 75-76-6406Cifcocjw Vaccine (1 of 2)Shingrix Vaccine (1 of 2)[facility]: 57-59-8877Lyjxviim ScreeningDiabetes ScreeningBlanchard Valley Health [facility] Hospitaltart: 07-38-2707Nxdhcceto for malignant neoplasm of colonBlanchard Valley Health System [facility] Hospitaltart: 53-00-6241Gxunx panelLipid ScreeningWadsworth-Rittman Hospital Start: 69-80-4887Eubmq microalbumin profileDTaP,Tdap,Td Vaccine (1 - Tdap) [facility]: 52-51-1430Cqffpn PCP Team Chronic Disease VisitAnnual PCP Team Chronic Disease VisitBlanchard Valley [facility] Hospitaltart: 21-22-8115Ohbdawf Screening Anxiety ScreeningBlanchard Valley Health [facility] Hospitaltart: 45-23-6573Gnvtgtidzu ScreeningDepression ScreeningBlanchard Valley [facility] Hospitaltart: 03-57-8071Mkwzdctxs B surface antibody levelLDL CholesterolBlanchard Valley Health System [facility] Hospitaltart: 89-59-2449Yhqwvkppx C screeningHepatitis C ScreeningLake County Memorial Hospital - Westrt: 64-96-7109Owqgpoqf foot examinationDiabetic Foot ExamBl[facility] Hospitaltart: 25-05-2837Smfkauju screeningDilated Retinal Exam [facility]rt: 90-19-9665Nqhihefir B screeningUrine Albumin:Creatinine RatioLake County Memorial Hospital - Westrt: 28-99-2425DVzF/Tdap/Td Vaccines (1 - Tdap) DTaP/Tdap/Td Vaccines (1 - Tdap)[facility] HealthcareStart: 21-03-1762Pgaktdnmtauu Vaccine: 65+ (1 of 2 - PCV)Pneumococcal Vaccine: 65+ (1 of 2 - PCV)[facility]: 18-83-4304Jigsuzyfvc A1c ezhmyjcmjgiDhK5LCoqyruqzb ClinicStart: 28-11-4706Hbtqwjxgm for malignant neoplasm of colonHIGHLAND RIDGE HOSPITAL HealthcareMR Lumbar spine WO [facility] HospitalMR Lumbar spine WO [facility] HealthPatient EducationThe Christ Hospital Work Phone: Patient referralThe Christ Hospital Work Phone: XR Lumbar spine ViewsMansfield Hospital Immunizations Immunization DateImmunizationNotesCare XvettfbfTkhqeoge37-00-5373ftpbxsfqk virus vaccine, unspecified formulationNicholas Brown DPM Work Phone: [facility] HospitalAeglfmwzds64-42-2617ddsmdzyfu virus vaccine, unspecified formulationMichael Mcwilliams DO Work Phone: NOSaint Francis Medical CenterQyynjzvxdc24-29-5591dmoqsujyk virus vaccine, unspecified formulationMaria Apling SEMI CONDUCTOR ASSEMBLER Work Phone: [facility] HospitalJliiogvcqp74-39-3252IZEOW-24 Vaccine Moderna - Documentation Purposes OnlyDavid Hykes Other [facility]02-24-2021COVID-19 Vaccine Moderna - Documentation Purposes OnlyDavid Hykes Other [facility] Payers DatePayer CategoryPayerPolicy [id number] Health InsuranceMEDICAL MUTUAL 1.2.840.550497.1.13.693.2.7.9.871747.287009.41903-37-9373Srofxhm 1.2.840.308619.1.13.159.2.7.3.403218.315 2012Medicare 1.2.840.116385.1.13.159.2.7.3.757881.315 [id number] 1960 [id number] 2.16840.1.85442[id number] 2.160.5.726259.52719578-53-9907Fzlpojr7427144 2.16840.1.266713.3.579.2.593 47-27-1570Tduoanw7118854 2.160.1.326931.3.579.2.70589-89-1891Ztccglg4432516 2.16840.1.605490.3.579.2.97136-87-3725Vnejffq6618119 2.16840.1.308371.3.579.2.81331-32-8084Cabzbim1167851 2.16840.1.794589.3.579.2.40071-05-5869Dluxgjg4480955 2.16840.1.851120.3.579.2.16671-62-9331Bwshqba2602248 2.16.840.1.649035.3.579.2.86873-86-2871Rzccjyn8629227 2.16.840.1.885941.3.579.2.22182-79-5311Qxkaqvq0932631 2.16.840.1.354539.3.579.2.92517-40-6357Pikxybu8377534 2.16.840.1.554898.3.579.2.66329-59-1509Jtcibnh8384829 2.16.840.1.779735.3.579.2.50463-72-7890Bvqjqil6223857 2.16.840.1.591516.3.579.2.71204-28-4012Gbsmtch92691289 2.16840.1.063376.3.579.2.30300-31-3227Vfdocrb50835526 2.16.840.1.204959.3.579.2.25421-65-4521Gjdgqry61770157 2.16.840.1.373755.3.579.2.91983-43-5014Okjtvog613252774 2.16840.1.966652.3.579.2.97369-75-8031Pjtuadz81793150 2.16840.1.677838.3.579.2.19787-35-4484Zqthtkv25909811 2.16.840.1.446758.3.579.2.38011-02-8895Tqyzasx59870858 2.16.840.1.559311.3.579.2.02898-13-0561Cjprzid74470496 2.16.840.1.904654.3.579.2.81703-17-1258Iiwekft97338845 2.16.840.1.590995.3.579.2.17063-05-1053Udgwcfl68519784 2.16.840.1.537235.3.579.2.32314-98-8803Npxgwif06618943 2.16.840.1.955639.3.579.2.92207-51-6209Ohfsjwy33522768 2.16.840.1.318152.3.579.2.35260-36-7438Omyhpsv801137196 2.16.840.1.420610.3.579.2.53304-37-4116Ggjeybh577456266 2.16840.1.542433.3.579.2.39890-37-4193Apqgnaj247992046 2.16840.1.515258.3.579.2.28814-70-5848Xuqnptw303252280 2.16.840.1.506419.3.579.2.05774-99-5241Yypiscb519141921 2.16.840.1.143926.3.579.2.98334-37-6480Jbhmzxa978501509 2.16.840.1.518796.3.579.2.60556-31-4259Opifmig42994354 2.16.840.1.350209.3.579.2.62800-82-3514Duiyrjp30448923 2.16.840.1.351409.3.579.2.42227-20-5817Jcnqule03547478 2.16.840.1.468958.3.579.2.75637-52-7050Omkyylv07693185 2.16.840.1.219115.3.579.2.31170-96-4374Uuwzzlr06004145 2.16.840.1.412057.3.579.2.98719-73-8303Axmjiyt16369118 2.16.840.1.045490.3.579.2.36657-77-5044Oqfttgf69841569 2.16.840.1.363163.3.579.2.54032-97-7348Jozdqqr55888954 2.16.840.1.612151.3.579.2.22316-61-7496Devoinw87397508 2.16.840.1.132971.3.579.2.51639-41-4799Goizcuh28815529 2.16.840.1.272212.3.579.2.29515-43-9667Vrgmtyy86780551 2.16.840.1.593740.3.579.2.21084-79-1344Qsjaypm55687809 2.16.840.1.070189.3.579.2.72895-45-9721Ebgtusm79520554 2.16.840.1.744340.3.579.2.10874-62-9863Okkqoxc31858231 2.16.840.1.937730.3.579.2.83415-72-9810Bezfyij68488144 2.16.840.1.141122.3.579.2.52516-49-6225Vevqzvx80071347 2.16.840.1.511988.3.579.2.16057-96-9817Rhbtjzt97504358 2.16.840.1.370588.3.579.2.25327-33-9853Hrftfov18547709 2.16.840.1.051950.3.579.2.01131-35-0543Fzjbsky06267463 2.16.840.1.976476.3.579.2.18007-99-9749Trqwhaw00591019 2.16.840.1.807028.3.579.2.42257-22-4358Aibbwfs41147744 2.16.840.1.676922.3.579.2.54569-39-3162Iutpraa94290401 2.16.840.1.078155.3.579.2.88324-51-8489Ccptsvo05289220 2.16.840.1.149245.3.579.2.28071-34-5939Dsylyrj50703968 2.16.840.1.307768.3.579.2.49199-24-1566Mfrcmvo81787628 2.16.840.1.928542.3.579.2.14643-83-3964Bxfqhve89472089 2.16.840.1.083976.3.579.2.30647-48-0229Xfdjzrq01155043 2.16.840.1.919298.3.579.2.20595-33-7153Oagsxle19364889 2.16840.1.833658.3.579.2.47376-32-0371Lymwcjs64736670 2.16.840.1.841828.3.579.2.04849-03-9621Jfypzca41228501 2.16.840.1.848350.3.579.2.46146-29-7154Cdyaise33123828 2.16.840.1.752035.3.579.2.19134-08-1881Wdrnxxj56275121 2.16.840.1.406721.3.579.2.094240-69-2068Rhefvyo27633873 2.16.840.1.884035.3.579.2.534705-26-6259Agqrvqq61635835 2.16840.1.784235.3.579.2.559393-78-2327Xueviwn91888523 2.16840.1.024385.3.579.2.855975-41-3342Gsqlwtw04017590 2.16840.1.511931.3.579.2.525941-15-8866Jivkysq82449470 2.16840.1.033228.3.579.2.959119-13-5389Dzdxsxb58139396 2.0.1.055375.3.579.2.647529-15-8403Jymotoi09175824 2.0.1.119151.3.579.2.632530-28-9237Wrgjzsd25376287 2.840.1.950148.3.579.2.646611-50-2363Qzbbmlb73837150 2.16840.1.172793.3.579.2.737043-63-2873Pbpjfjd56460223 2.840.1.219764.3.579.2.826519-26-7019Ibrpbfc30224276 2.840.1.185558.3.579.2.304804-37-4584Fnveqlb84508109 2.16840.1.324824.3.579.2.028375-49-4967Mxnxfna24161071 2.16840.1.353134.3.579.2.974435-01-0089Gdzomji16789659 2.16840.1.690451.3.579.2.294312-74-2309Gefluij65982378 2.16840.1.124780.3.579.2.479393-70-7446Urgayuc58449443 2..0.1.973148.3.579.2.853506-16-6349Iwndbzq7700625 2.16.840.1.202947.3.579.2.805684-08-9751Igixfju6879214 2..840.1.895195.3.579.2.089554-01-2016Ejaorhx1979260 2.16.840.1.493361.3.579.2.1259UnknownStandard LIfe Bjq215304890 s4505x8t-o039-911y-2ut7-8295gq49ad32Ppnntxt82858109 2.16.840.1.806622.3.579.2.640Veibyzd39139431 2.0.1.398615.3.579.2.531 Vctzlio89647381 2.0.1.490691.3.579.2.531 Social History DateTypeDetailFacilityUnknown if ever smokedNort Protection Plus Other Start: 02-05-2024 End: 30-69-7719Kcm Assigned At BirthBlanchard [facility] Hospitaltart: 49-94-2709Cex Assigned At BirthC[facility] Clinic [facility] Hospitaltart: 07-09-2018 End: 89-07-3687Ipprwwf smoking status NHISNever smoked tobacco (finding) [facility]: 36-45-6700Jhvbicy smoking status NHIS Tobacco smoking consumption unknownBlanchard Valley Health [facility] Hospitaltart: 02-05-2024 End: 90-17-8107Nzdkkah of Social functionBlanchard Valley Health System [facility]uff[facility] Hospitaltart: 12-21-2022 National Score (1-100), lower number is lower fzpk13UwccjwzerBlanchard Valley Health System [facility] Hospitaltart: 73-10-0159Kpz Assigned At BirthNot on fileBlanchard Valley Health System [facility] Hospitaltart: 05-18-2023 End: 00-18-3874Mcmavtt use and exposureSmokeless tobacco non-userBlanchard Valley Health System [facility] Hospitaltart: 02-29-2024 End: 42-46-1006Mrvyeil intakeEx-drinker (finding)[facility]: 03-13-2025 End: 19-39-2727MgeSlfk (finding)[facility]: 17-99-1176Ztuuvia intakeAlcohol Use [facility] Start: 04-77-9826Hzmhuqg use and exposureNon-Smoking Tobacco Use [facility] Centertart: 81-92-3847Iguvmr OrientationStraight or heterosexualOrthocolorado Hospital At St. Anthony Medical CampusNEGATED: Highlighted rowStart: NINFHistory of tobacco usePassive smokerNONM HealthcareNEGATED: Highlighted row Start: 43-02-7928Mbnxylj smoking status NHISNever smokerOrthocolorado Hospital At St. Anthony Medical CampusNEGATED: Highlighted rowStart: 14-13-3167Hlwgmse of tobacco use Current non-smokerOrthocolorado Hospital At St. [facility] Campus Medical Equipment Procedure CodeEquipment CodeEquipment Original TextEquipment IdentifierDates ESWL, one kidneySTENT CONTOUR 4.8FR X 22-30CMFDAStart: 61-91-8857OHSN, one kidneySTENT CONTOUR 4.8FR X 22-30CMFDAStart: 13-01-7202DCKV, one kidneySTENT CONTOUR 4.8FR X 22-30CMFDAStart: 61-89-4336JFHR, one kidneySTENT CONTOUR 4.8FR X 22-30CMFDAStart: 04-60-9839MFEO, one kidneySTENT CONTOUR 4.8FR X 22-30CMFDA Start: 64-99-4923OJID, one kidneySTENT CONTOUR 4.8FR X 22-30CMFDAStart: 70-45-5483VJQO, one kidneySTENT CONTOUR 4.8FR X 22-30CMFDAStart: 62-64-0242LLYL, one kidneySTENT CONTOUR 4.8FR X 22-30CMFDAStart: 55-78-0384CWUE, one kidney STENT CONTOUR 4.8FR X 22-30CMFDAStart: 69-27-5455Vzorz: 15-19-8380Vkgn Axium Slimtip 1mm 5mm Space 50mm Neurostimulator Front Load [id number]: 04-03-2024 Clinical Notes 07-21-2021 to 08-12-2025 Note Date & UdttAcqfZbsjhcco18-70-5132 Telephone encounter Note* Telephone Encounter - Jose Juan Hawk - 08/12/2025 4:01 PM EST Physical Therapist called to let me know that the patient had fell out of his chair last week when he was sleeping and that there were no injuries. [facility] HospitalBslxvddffb79-54-1979 Miscellaneous Notes* Telephone Encounter - Jose Juan Hawk - 08/12/2025 4:01 PM EST Physical Therapist called to let me know that the patient had fell out of his chair last week when he was sleeping and that there were no injuries. documented in this encounterSouthPointe HospitalEqmszavasi83-01-7500 History of Present illness Narrative* Bassam Aguilar, AUGUSTIN - 08/07/2025 10:00 AM EDT Patient: Dong Whitmore : 1950 PCP: Everett Hickman MD SUBJECTIVE This is a 74 y.o. male that presents today 36 days s/p right 1st ray amputation with I and D Pt denies n/f/v/c and has minimal pain to post op site. Pt states that they have been partial weight-bearing to post op foot as unable to be true NWB due to knee and balance issues. Pt presents today for follow up. Patient is type 2 diabetic Patient presents today with a CC of elongated, thick nails. Pt states nails have been elongated and thick for many years and cause pain with ambulation in shoegear. Pt has tried previous treatment with minimal relief. Pt presents today for nail care and treatment. Patient is DM2 Patient present today for follow up of ulceration to right foot. Pt denies any n/f/v/c. Patient states that they have been using the following treatments for the ulcer of calcium alginate with home health. Pt is a DM2. Patient has new history of ulceration and swelling to bilateral legs and had home health applying Xeroform as well as compression wraps and denies nausea vomiting chills but states drainage Allergies: Allergies Allergen Reactions Cefuroxime Unknown Celecoxib [...] chills, fatigue, malaise OBJECTIVE LE EXAM: Derm: skinintact to right foot with negative erythema, negative drainage, minimal edema with negative clinical signs of infection. Slight area ulceration proximal set of the incision site with a 0.2 cm x 0.5 cm 0.2 cm subcutaneousthickness depth ulceration with negative erythema slight fibrous slough and slight serous drainage with negative probe to bone Anterior lateral right lateral calf has a 0.5 cm x 0 point 5 cm x 0.2 cm subcutaneous thickness [...] of dorsiflexion at right ankle joint. ASSESSMENT 36 days s/p Right foot I and D and of right 1st ray amputation 1. Diabetes 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, unspecified whether longterm insulin use (HCC) 2. Foot ulcer, right, with fat layer exposed (HCC) 3. Venous insufficiency 4. 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 Chronic ulcer of left leg with fat layer exposed (HCC) PLAN Sharp debridement with 15 blade of subcutaneous ulceration to right foot with active bleeding notedand removal and excision of fibrotic and necrotic tissue to wound and DSD applied with neosporin. Pt to continue with calcium alginatedaily. Today's procedure is a staged procedure and patient may need further procedures in the future. 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 Work Phone: 1(509) 315-319110-23-2025 History of Present illness Narrative* Bassam Aguilar DPM - 07/31/2025 1:10 PM EDT Patient: Dong Whitmore : 1950 PCP: Everett Hickman MD SUBJECTIVE This is a 74 y.o. male that presents today 29 days s/p right 1st ray amputation with [...] the following treatments for the ulcer of Betadine Pt is a DM2. Allergies: Allergies Allergen Reactions Cefuroxime Unknown Celecoxib [...] chills, fatigue, malaise OBJECTIVE LE EXAM: Derm: skinintact to right foot with negative erythema, negative drainage, minimal edema with negative clinical signs of infection. Slight area ulceration proximal set of the incision site with a 2 cm x 0.5 cm 0.2 cm subcutaneous thickness depth ulceration with negative erythema slight fibrous slough and slight serous drainage with negative probe to bone Vascular: Palpable pedal pulses to right foot Neuro: Gross sensation intact to right foot. Musculoskeletal: Negative pain on palpation to right calf. Ortho: Ankle range of motion less than 10 degrees of dorsiflexion at right ankle joint. ASSESSMENT 29days s/p Right foot I and D and of right 1st ray amputation 1. Diabetes 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, unspecified whether longterm insulin use (HCC) 2. Foot ulcer, right, with fat layer exposed ([facility]) PLAN Sharp debridement with 15 blade of subcutaneous ulceration to right foot with active bleeding notedand removal and excision of fibrotic and necrotic tissue to wound and DSD applied with neosporin. Pt to continue with Betadine daily. Today's procedure is a staged procedure and patient may need further procedures in the future. Patient may apply Betadine daily to the dorsum of the amputation site for the next week dry steriledressing Will contact [facility] to apply calcium alginate Promogran every other day with dry sterile dressing Bassam Aguilar DPM documented in this encounterSouthPointe [id number] History of Present illness Narrative* Bassam Aguilar DPM - 07/24/2025 2:10 PM EDT Patient: Dong Whitmore : 1950 PCP: Everett Hickman MD SUBJECTIVE This is a 74 y.o. male that presents today 22 days s/p right 1st ray amputation with [...] Diagnosis Date COVID-19 vaccine series completed Diabetes ([facility]) Hypercholesterolemia Hypertension Neuropathy in diabetes ([facility]) PVD (peripheral vascular disease) Stress fracture Medications: [...] signs of infection. Slight area ulceration proximal set of the incision site with a 2 cm x 0.5 cm 0.2 cm subcutaneous thickness depth ulceration with negative erythema slight fibrous slough and slight serous drainage with negative probe to bone Vascular: Palpable pedal pulses to right foot Neuro: Gross sensation intact to right foot. Musculoskeletal: Negative pain on palpation to right calf. Ortho: Ankle range of motion less than 10 degrees of dorsiflexion at right ankle joint. ASSESSMENT 22 days s/p Right foot I and D and of right 1st ray amputation 1. Osteomyelitis of ankle or foot, acute, right (HCC) 2. Cellulitis of right foot 3. 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 Foot ulcer, right, with fat layer exposed (HCC) PLAN Removal of sutures today and may begin to get foot wet. Patient may apply Betadine daily to the dorsum of the amputation site for the next week dry steriledressing Bassam Aguilar DPM documented in this encounterSouthPointe [id number] Evaluation note* Type Assessment Date assessment Anxiety disorder due to known ph ysiological condition [facility] Work Phone: [phone]) 158-917610-09-2025 History of Present illness Narrative* Bassam Aguilar DPM - 07/17/2025 2:00 PM EDT Patient: Dong Whitmore : 1950 PCP: Everett Hickman MD SUBJECTIVE This is a 74 [...] Diabetes (HCC) Hypercholesterolemia Hypertension Neuropathy in diabetes ([facility]) PVD (peripheral vascular disease) Stress fracture Medications: [...] polyneuropathy, unspecified whether longterm insulin use (HCC) 4. Venous insufficiency PLAN Patient to keep [...] today Bassam Aguilar DPM documented in this [id number] [id number] History of Present illness Narrative* Bassam Aguilar DPM - 07/08/2025 2:40 PM EDT Patient: Dong Whitmore : 1950 PCP: Everett Hickman MD SUBJECTIVE This is a 74 [...] Diagnosis Date COVID-19 vaccine series completed Diabetes ([facility]) Hypercholesterolemia Hypertension Neuropathy in diabetes ([facility]) PVD (peripheral vascular disease) Stress fracture Medications: [...] underlying condition with diabetic polyneuropathy, 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 (HCC) 2. Cellulitis of right foot 3. Osteomyelitis of ankle or foot, acute, right ([facility]) PLAN Patient to keep dry sterile dressing [...] foot Bassam Aguilar DPM documented in this encounterSouthPointe [id number] Evaluation note* Diagnosis Onset Date Resolution Status Admit Date Acute hematogenous osteomyelitis, right ankle and foot acuteSeptember 2024 4:13pmBilateral lower extremity edemaacuteSept2024 4:13pmCellulitisacuteSept2024 4:13pmCellulitis of right footacuteSept2024 4:13pmDiabetes 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acuteSept2024 4:13pm Hemosiderin pigmentation of lower extremity due to varicose veinsacuteSept2024 4:13pmVenous hypertension of both lower extremitiesSept2024 acuteSeptember 2024 4:13pmWound of right footacuteSept2024 4:13pm [facility] Work Phone: 1(860) 559-464509-17-2025 Evaluation note* Type Assessment Date assessment Anxiety disorder due to known ph ysiological condition [facility] Work Phone: 1([phone]) 675-464109-16-2025 NoteCardiovascular Medicine [facility] SUBJECTIVE Chief Complaint Patient presents with [...] good blood flow - Dr. Soni in [facility]. He c/o increased leg swelling to right [...] running 130-150s/70-80s. He follows with endocrinology at [facility]. GI would like to start something [...] with lymphedema. He follows with endocrinology in [place]. He has MILLER - this is unchanged. [...] is currently at a weightloss program at [facility]. He is seeing the rehabilitation supervisor. 01/23/2023 He is down about 10lbs [...] Obesity Sleep apnea Type 2 diabetes mellitus ([facility]HCC) Complex regional pain syndrome type II of right lower limb Coronary arteriosclerosis in [place] artery Current use of insulin ([facility]) Dietary counseling and surveillance Benign hypertensive 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 Concentric left ventricular hypertrophy Anxiety Right elbow pain Pre-op evaluation MILLER (dyspnea on exertion) Chronic ulcer of left foot with fat layer exposed ([facility]) Diabetic mononeuropathy ([facility]) Peripheral venous insufficiency Spontaneous rupture of other tendons, right upper arm Strain of muscle, fascia and tendon of triceps, right arm, initial encounter Past Medical History: Diagnosis Date CAD (coronary artery disease) DM type 2 (diabetes mellitus, type 2) ([facility]) HLD (hyperlipidemia) HTN (hypertension) Neuropathy ULISES (obstructive [...] Nsaids (Non-Steroidal Anti-Inflammatory Drug) Rofecoxib Sulindac Victoza 2-Julian [Liraglutide] OBJECTIVE Visi (more content not included)...[facility]09-10-2025 History of Present illness Narrative* Cara Joshua, CCC-A - 06/18/2025 9:30 AM EDT Hearing Aid [...] want smaller custom aids. Our office uses [employer] for custom aids. [employer] has 2 options: Signature CIC or Edge CIC. Signature CIC is rechargeable and waterproof but has no connectivity (cannot stream, use holley, or use remote control.) A button can be put on the faceplate for basic volume adjustments. Edge CIC uses a 312 battery, is waterproof, and can stream to the phone or the [employer] holley. Both Signature and Edge CIC only comein mid, advanced, or premium technology (16, 20, 24). Pt states he wants to think things over. He only can afford the 16 circuit. 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 Work Phone: 1(388) 385-725008-20-2025 Evaluation note* Type Assessment Date assessment Anxiety disorder due to known ph ysiological condition impression apathy, low motivati on, low energy, poor sleep maintenance, low self-efficacy, low attention maintenance, nervousness, rumination, and irritability assessment Body mass index [BMI]40.0-44.9, adult [facility] Work Phone: 1([phone]) 674-783108-14-2025 History of Present illness Narrative* Bassam Aguilar, AUGUSTIN - 05/22/2025 9:10 AM EDT Patient: Dong Whitmore : 1950 PCP: Everett Hickman MD SUBJECTIVE Patient presents today with [...] Partner Violence: Unknown (11/30/2023) Received from [facility] [place] [employer] Fear [...] polyneuropathy, unspecified whether longterm insulin use (HCC) 2. Pain due to [...] shoes Bassam Aguilar DPM documented in this encounterSouthPointe [id number] History of Present illness Narrative* Gabriela Smith [...] additional applications as needed. documented in this encounterSouthPointe [id number] Instructions* Patient Instructions* Gabriela Smith DPM - [...] topical aloe vera gel and take an sppw-jvk-vksdjal pain medication such as Tylenol or Ibuprofen. [...] than every 3 months. documented in this encounterSouthPointe HospitalZnvlagztpv69-11-5424 Telephone encounter Note* Telephone Encounter - Gabriela Smith DPM - 05/19/2025 12:05 PM EDT Rx for Qutenza was sent to the patient's preferred pharmacy. SouthPointe [id number] Miscellaneous Notes* Telephone Encounter - Gabriela Smith DPM - 05/19/2025 12:05 PM EDT Rx for Qutenza was sent to the patient's preferred pharmacy. documented in this encounterSouthPointe HospitalUyfefdjwcq10-78-2800 NotePatient Education Caregiving Fall Prevention in the [...] Keep items that you use often in ixmb-kz-qgvla places. Lower the shelves around your home [...] the way. ??? Do not use floor khmer or wax that makes floors slippery. What [...] Control and Prevention, STEADI: cdc.gov ??? National [place] on Aging: keena.nih.gov ??? National [place] on Aging: keena.nih.gov Contact a health care provider if: ??? You are afraid of falling at home. ??? You feel weak, drowsy, or dizzy at home. ??? You fall at home. Get help right away if you: ??? Lose consciousness or have trouble moving after a fal (more content not included)...[facility]08-06-2025 Evaluation note* Type Assessment Date assessment Body mass index [BMI] 40.0-44.9, adult assessment Anxiety disorder due to known ph ysiological condition impression apathy, low motivati on, low energy, poor sleep maintenance, low self-efficacy, low attention maintenance, nervousness, rumination, and irritability [facility] Work Phone: 1([phone]) 594-640008-06-2025 Instructions* Date Instruction Additional Infor mation Giving encouragement to exercise Related to Body mass index [BMI] 40.0-44.9, adult Food education, guid ance, and counseling Related to Body mass index [BMI] 40.0-44.9, adult [facility] Work Phone: 1(262) 703-173007-30-2025 History of Present illness Narrative* Morgan Arnold, [...] this PT consult. 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 Continue to encourage [...] postural training. General UE/scapular/core/LE strengthening to assist termite 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 helper management (15 Min); Recumbent Bike (10 Min-Unsupervised) [...] and low motivation in home environment makes termite 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 helper improvement of this condition difficult. Continue to encourage routine HEP performance and improving overall quality of life with routine diet, exercise, and PT HEP performance. Reassessment and probable discharge next week. Patient encouraged to implement longterm program toaddress deficits. Continue per PT POC Plan: Recommend outpatient PT 1-2 times/week for up to 8 weeks per above PT POC pending patient progress and medical necessity standards (04/15/25-DBO) I hereby deem this POC medically necessary. Please sign below and fax back to the number below. 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 I advised that it is recommended that we plan on three applications spaced 3 months apart in order to see the most symptoms improvement which is what is required by insurance. Patient will be scheduled for early-mid May when he can have an additional application of the Qutenza. documented in this encounterSouthPointe [id number] History of Present illness Narrative* David Wong MD - 04/30/2025 2:20 PM EDT Subjective Patient ID: Dong Whitmore is a 74 y.o. male who presents for Ear Problem (Follow up MRI [facility] 04/08/25) MRI reviewed and there is [...] Problems Diagnosis Date Noted Coronary arteriosclerosis in [place] artery 05/22/2019 Complex regional pain syndrome type II of right lower limb 04/03/2024 Hyperlipidemia 01/08/2013 Essential hypertension 01/08/2013 Gastroesophageal reflux disease 01/08/2013 Peripheral neuropathy 11/25/2022 Type 2 diabetes mellitus (HCC) 11/25/2022 Anxiety 12/18/2024 Benign hypertensive 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 2024 Chest pain 01/08/2013 Chronic ulcer of left foot with fat layer exposed ([facility]) 03/28/2025 Class 3 severe obesity with serious comorbidity and body mass index (BMI) of 40.0 to 44.9 in adult ([facility]) 02/05/2024 Concentric left ventricular hypertrophy 2024 Current use of insulin ([facility]) 06/26/2024 Diabetic mononeuropathy ([facility]) 03/28/2025 Dietary counseling and surveillance 06/26/2024 MILLER [...] Diagnosis Date COVID-19 vaccine series completed Diabetes ([facility]) Hypercholesterolemia Hypertension Neuropathy in diabetes ([facility]) PVD (peripheral vascular disease) Stress fracture Past [...] hearing loss) Continue vest rehab. Cleared for sanam SHEN. Trial of a low sodium diet for hydrops sx documented in this encounterSouthPointe [id number] History of Present illness Narrative* Morgan Arnold, [...] this PT consult. Prior PT at [facility] with inconsistent results leading to this [...] postural training. General UE/scapular/core/LE strengthening to assist termite 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 helper management (10 Min) Therapeutic Activity: Functional Activity [...] below. Physician Signature: Date: documented in this encounterSouthPointe [id number] History of Present illness Narrative* Morgan Arnold, [...] this PT consult. Prior PT at [facility] with inconsistent results leading to this [...] postural training. General UE/scapular/core/LE strengthening to assist longterm management (10 Min) Therapeutic Activity: Functional Activity [...] below. Physician Signature: Date: documented in this encounterSouthPointe [id number] History of Present illness Narrative* David Wong MD - 03/31/2025 9:20 AM EDT Subjective Patient ID: Dong Whitmore is a 74 y.o. male who presents for Meniere's Disease (Audio 03/28/25) Pt reports he has had a 12-18 mo h/o poor balance. Audio shows asymmetric RT SNHL. Goes to PT at [facility] to work on strength. No vertigo. Pt has sanam tinnitus. Has sanam LE diabetic neuropathy Review of Systems All other systems reviewed and are negative. Family History Problem Relation Name Age of Onset Hypertension Mother Heart disease Mother Stroke Mother Diabetes Father Benjamin Whitmore Stroke Father Benjamin Whitmore Hypertension Father Benjamin Whitmore Active Ambulatory Problems Diagnosis Date Noted Coronary arteriosclerosis in [place] artery 05/22/2019 Complex regional pain syndrome type II of right lower limb 04/03/2024 Hyperlipidemia 01/08/2013 Essential hypertension 01/08/2013 Gastroesophageal reflux disease 01/08/2013 Peripheral neuropathy 11/25/2022 Type 2 diabetes mellitus (HCC) 11/25/2022 Anxiety 12/18/2024 Benign hypertensive 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 2024 Chest pain 01/08/2013 Chronic ulcer of left foot with fat layer exposed ([facility]) 03/28/2025 Class 3 severe obesity with serious comorbidity and body mass index (BMI) of 40.0 to 44.9 in adult ([facility]) 02/05/2024 Concentric left ventricular hypertrophy 2024 Current use of insulin ([facility]) 06/26/2024 Diabetic mononeuropathy ([facility]) 03/28/2025 Dietary counseling and surveillance 06/26/2024 MILLER [...] Diagnosis Date COVID-19 vaccine series completed Diabetes ([facility]) Hypercholesterolemia Hypertension Neuropathy in diabetes ([facility]) PVD (peripheral vascular disease) Stress fracture Past Surgical History: Procedure Laterality Date AMPUTATION CARDIAC SURGERY 2012 stents CARPAL TUNNEL RELEASE Right FOOT SURGERY PROSTATE SURGERY TOE AMPUTATION TOE SURGERY Right 3, Allergies Allergen Reactions Cefuroxime Unknown Celecoxib Unknown [...] and face appears atraumatic; Ear Ear comments: Sanam ears normal Nose External Nose: nares patent [...] (BMI) of 45.0 to 49.9 in adult ([facility]) It appears likely pt has a multisensory deficit exacerbated by his weakness and obesity. Continue PT for strength and add vest rehab. Dizziness and asymmetric SNHL could be due to an AN. MRI IAC without low. Needs valium for claustraphobia Proceed with sanam hearing aids documented in this encounterSouthPointe [id number] History of Present illness Narrative* Cara Joshua, CCC-A - 03/28/2025 9:00 AM EDT History: Pt [...] Ear: Type A tympanogram documented in this encounterSouthPointe [id number] NotePatient is here today for a 3 [...] Musculoskeletal: Positive for back pain and joint pain.[facility]06-12-2025 NoteCardiovascular Medicine [facility] SUBJECTIVE No chief complaint on file. [...] running 130-150s/70-80s. He follows with endocrinology at [facility]. GI would like to start something [...] with lymphedema. He follows with endocrinology in [place]. He has MILLER - this is unchanged. [...] is currently at a weightloss program at [facility]. He is seeing the rehabilitation supervisor. 01/23/2023 He is down about 10lbs [...] Obesity Sleep apnea Type 2 diabetes mellitus ([facility]) Complex regional pain syndrome type II of right lower limb Coronary arteriosclerosis in [place] artery Current use of insulin ([facility]) Dietary counseling and surveillance Benign hypertensive 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 Concentric left ventricular hypertrophy Anxiety Right elbow pain Pre-op evaluation MILLER (dyspnea on exertion) Past Medical History: Diagnosis Date CAD (coronary artery disease) DM type 2 (diabetes mellitus, type 2) ([facility]) HLD (hyperlipidemia) HTN (hypertension) Neuropathy ULISES (obstructive sleep apnea) Family History Problem Relation Name Age of Onset Coronary artery disease Other Diabetes Other Social History Tobacco Use Smoking status: Never Smokeless tobacco: Never Substance Use Topics Alcohol use: Not Currently Drug use: Never Allergies Allergen Reactions Cefuroxime Celecoxib Diflunisal Dulaglutide Unknown Metformin Naproxen Nsaids (Non-Steroidal Anti-Inflammatory Drug) Rofecoxib Sulindac Victoza 2-Julian [Liraglutide] ROS Cardiovascular: Positive for leg swelling [...] tablet, DISSOLVE 1 T (more content not included)...[facility]06-05-2025 Evaluation note* Diagnosis Onset Date Resolution Status Admit Date Right leg pain acuteJune 2024 1:13pmRight lumbar radiculopathyacuteJune 2024 1:13pm [facility] Work Phone: 1(953) 454-648306-05-2025 Evaluation note* Diagnosis Onset Date Resolution Status Admit Date Right leg pain acuteJune 2024 1:13pmRight lumbar radiculopathyacuteJune 2024 1:13pm Toe pain, rightacuteJune 2024 11:16am [facility] Work Phone: 1([phone]) 390-756406-05-2025 Evaluation note* Diagnosis Onset Date Resolution Status Admit Date Right leg pain acuteJune 2024 1:13pmRight lumbar radiculopathyacuteJune 2024 1:13pm Toe pain, rightacuteJune 2024 11:16amBMI 40.0-44.9, adultacuteJune 2024 12:57pmChronic pain of toe of right footacuteJune 2024 12:57pmDietary counseling and surveillanceacuteJune 2024 12:57pmHyperlipidemiaacuteJune 2024 12:57pmHypertensionacuteJune 2024 12:57pmPeripheral neuropathy acuteJune 2024 12:57pmType 2 diabetes mellitusacuteJune 2024 12:57pm [facility] Work Phone: 1(321) 279-720506-05-2025 NoteNurse Consultation Note Reason for Visit Patient [...] mg= 1 tab(s), Oral, Daily Potassium Chloride (Qtl-Xaiq-Cuv M20) 20 mEq oral tablet, extended release, [...] virus vaccine, inactivated 08/01/2022 Recorded SARS-CoV-2 (COVID-19) [id number] 08/01/2022 Recorded 2023-04-14: TPV70 SARS-CoV-2 (COVID-19) mRNA-1273 [...] inactivated 08/19/2013 Recorded zoster vaccine live 09/19/2012 [facility]ed[facility] [place] History of Present illness Narrative* Bassam Aguilar, DPM - 03/06/2025 9:10 AM EDT Patient: Dong Whitmore : 1950 PCP: Everett Hickman MD SUBJECTIVE Patient presents today with [...] Diagnosis Date COVID-19 vaccine series completed Diabetes ([facility]) Hypercholesterolemia ([facility]) Hypertension ([facility]) PVD (peripheral vascular disease) ([facility]) Medications: Current Outpatient Medications: acarbose (Precose) 49 [...] Partner Violence: Unknown (11/30/2023) Received from [facility] [place] [employer] [place] Fear [...] diabetic polyneuropathy, unspecified whether longterm insulin use ([facility]) 2. Pain due to onychomycosis of toenails of both feet 3. Venous insufficiency 4. Amputation of toe of right foot ([facility]) PLAN Debride nails in length and thickness [...] surgery Bassam Aguilar DPM documented in this encounterSouthPointe [id number] NotePatient Education Orthopedics Acute Pain, Adult Acute [...] these instructions at home: Medicines ??? Take kxio-lys-dhchwlo and prescription medicines only as told by [...] is severe. ? Do not take other iszg-auy-gnuraok pain medicines in addition to prescription pain [...] keep your urine pale yellow. ??? Take xfsh-lrw-lbswlgi or prescription medicines. ??? Eat foods that [...] provider. Document Revised: 04/19/2023 Document Reviewed: 04/19/2023 [employer] Patient Education ? 2023 [employer]Doctor.[facility] 12-18-2024 [facility] Note Reason [...] (non-steroidal anti-inflammatory drug), Rofecoxib, Sulindac, and Victoza 2-julian [liraglutide] Medications Current Outpatient Medications: acarbose (Precose) [...] DAY SUBCUTANEOUSLY DIRECTED, Disp: , Rfl: omega 8-oeq-bmw-fish oil (Fish OiL) 1,200 (144-216) mg capsule, [...] 70 Ht 1.727 m (more content not included)...[facility] 10-17-2024 History of Present illness Narrative* Bassam Aguilar, GREGORIOM - 10/17/2024 10:20 AM EST Patient: Dong Matayehuda : 1950 PCP: Everett Hickman MD SUBJECTIVE Patient presents today with [...] Partner Violence: Unknown (11/30/2023) Received from [facility], [facility] [place] [employer] [place] Fear [...] diabetic polyneuropathy, unspecified whether longterm insulin use ([facility]) 2. Pain due to onychomycosis of toenails [...] surgery Bassam Aguilar DPM documented in this encounterSouthPointe [id number] History of Present illness Narrative* Matthew May, [...] believes a few years ago in the [place] office. Review of Systems Constitutional: Negative for [...] PROSTATE SURGERY TOE AMPUTATION TOE SURGERY Right Family History Problem Relation Name Age of [...] , wrist extensors , wrist flexor , comfort filler strength 5/5. LUE Strength deltoid , biceps , triceps , wrist extensors , wrist flexor , comfort filler strength 5/5. RLE Strength illopsoas, quadriceps, tibialis [...] reflex 0. Del Real's sign negative. Coordination: Dfbdfp-da-kidi testing and rapid alternating movements are normal [...] is already established with pain management in [place] and suggest that they can see them [...] to ketamine infusions with pain management in [place]. Isuggested, if epidural is not successful, that they consider follow up thereof. The patient can follow up with us on an as-needed basis. Thank you for consultation. Pt has been fully educated on their diagnosis, lab results, treatment options, follow up plan, return instructions, and discussion of mental health issues documented in this encounterSouthPointe [id number] NoteHNO ID: [id number] Author: CHIQUI ROBLES MD Service: ? Author Type: Physician Type: Progress Notes Filed: 08/26/2024 16:34 Note Text: [facility] STAFF PHYSICIAN NOTE OF PERSONAL INVOLVEMENT [...] - psychotherapy was utilized during the visit. Upvn-uo-orlw time: 11985 (16-37 mins) actual time spend in psychotherapy 18 minutes Type of therapeutic intervention:Supportive Target symptoms: Pain coping skills and Acceptance and adapting Progress/Session notes:processing Interactive Complexity: None STAFF PHYSICIAN:: Chiqui Robles MD DATE of SERVICE: 08/14/2024[facility]11-06-2024 History of Present illness Narrative* Chiqui Robles MD - 08/14/2024 10:29 AM EST [facility] STAFF PHYSICIAN NOTE OF PERSONAL INVOLVEMENT [...] - psychotherapy was utilized during the visit. Ibuj-jm-ilze time: 04746 (16-37 mins) actual time spend in psychotherapy 18 minutes Type of therapeutic intervention:Supportive Target symptoms: Pain coping skills and Acceptance and adapting Progress/Session notes:processing Interactive Complexity: None STAFF PHYSICIAN:: Chiqui Robles MD DATE of SERVICE: 08/14/2024 * Teagan Chilel MD - 08/14/2024 9:55 AM EST [facility] [place] August 14, 2024 This is a face [...] starting Trileptal if sedation is more bothersome. Teagan Chilel MD, AMANDA August 14, 2024 10:37 AM documented in this encounterWadsworth-[facility]ittman [facility]11-06-2024 NoteHNO ID: [id number] Author: TEAGAN CHILEL MD Service: ? Author Type: Resident Type: Progress Notes Filed: 08/14/2024 10:51 Note Text: [facility] [place] August 14, 2024 This is a face [...] starting Trileptal if sedation is more bothersome. Teagan Chilel MD, AMANDA August 14, 2024 10:37 [facility]10-31-2024 History of Present illness Narrative* Bassam Aguilar, DPM - 08/08/2024 9:40 AM EDT Patient: Dong Whitmore : 1950 PCP: Everett Hickman MD SUBJECTIVE This is a 73 [...] Partner Violence: Unknown (11/30/2023) Received from [facility], [facility] [place] Fear [...] diabetic polyneuropathy, unspecified whether longterm insulin use ([facility]) 2. Pain due to onychomycosis of toenails of both feet 3. Amputation of toe of right foot ([facility]) PLAN Debride nails in length and thickness [...] surgery Bassam Aguilar DPM documented in this encounterSouthPointe [id number] NoteB[facility] Note Reason for [...] DM type 2 (diabetes mellitus, type 2) ([facility]), HLD (hyperlipidemia), HTN (hypertension), Neuropathy, and ULISES [...] (non-steroidal anti-inflammatory drug), Rofecoxib, Sulindac, and Victoza 2-julian [liraglutide] Medications Current Outpatient Medications: acarbose (Precose) [...] DAY SUBCUTANEOUSLY DIRECTED, Disp: , Rfl: omega 0-qjc-uze-fish oil (Fish OiL) 1,200 (144-216) mg capsule, [...] right bundle branch block Echo 07/08/2024 at [facility] Echo 12/30/2022 Echo 11/15/2016 Nuclear stress test 12/29/2022 at [facility] EKG portion Assessment and Plan: Coronary artery disease, status post prior PTCA of the left circumflex artery and RCA in 2012 Last stress test 12/30/2022 which was negative for ischemia with normal ejection fraction He is on aspirin, metoprolol, and simvastatin. Clinically stable Severe LVH on recent echo probably due to uncontrolled hypertensi (more content not included)...[facility]10-23-2024 History of Present illness Narrative* Shyam Freeman DPM FACFAS - 07/31/2024 10:10 AM EDT Images from the original note were not included. Patient: Dong Whitmore : 1950 PCP: Everett Hickman MD SUBJECTIVE This is a 73 [...] < 3 seconds Digits 1-5 bilateral NEURO: Alba Yandy 5.07 monofilament was intact B/L. 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 Amputation of right great toe ([facility]) PLAN Patient had no improvement with diagnostic injection. I feel the this point the pain is not relatedto his toe but appears to be from his low back sciatic issue spoke with his primary care physician they plan to work him up for low back concerns AUGUSTIN Horn documented in this encounterSouthPointe [id number] History of Present illness Narrative* AUGUSTIN Horn - 07/24/2024 10:20 AM EDT Images from the original note were not included. Patient: Dong Whitmore : 1950 PCP: Everett Hickman MD SUBJECTIVE This is a 73 [...] series completed Diabetes (CMS/HCC) Hypercholesterolemia (CMS/HCC) Hypertension ([facility]/HCC) PVD (peripheral vascular disease) ([facility]) Medications: Current Outpatient Medications: acarbose (Precose) 49 [...] < 3 seconds Digits 1-5 bilateral NEURO: Alba Yandy 5.07 monofilament was intact B/L. Vibratory [...] radiates down the back of his leg. Shyam Freeman DPM FACFAS documented in this encounterSouthPointe [id number] History of Present illness Narrative* Cooper Sanchez, DO - 07/23/2024 9:45 AM EDT Images from the original note were not included. HISTORY OF PRESENT ILLNESS: Dong Whitmore is an 73 y.o. @ male. Chief complaint LT shoulder pain LT Shoulder: here for MRI results [facility] 07/15/24 8 1/2 weeks ago pt fell, went to [facility] ER on 05/24/24 and had xrays [...] does these. TX: LT shoulder xrays [facility] 05/24/24, acetiminophen with codeine, ice, bengay, 06/12/24 subacromial depomedrol injection, MRI [facility] 07/15/24, doing [...] (CMS/HCC) Hypertension (CMS/HCC) PVD (peripheral vascular disease) (CMS/[facility]) ALLERGIES: Allergies Allergen Reactions Cefuroxime Unknown Celecoxib [...] IMAGING: MRI of the shoulder from the [facility] had revealed a full-thickness tear of [...] cuff, unspecified whether traumatic M75.122 [facility]. Left shoulder pain, unspecified chronicity [...] Dr. Sanchez/darion Sanchez D.O. documented in this encounterSouthPointe [id number] NoteCardiovascular Medicine [facility] SUBJECTIVE No chief complaint on file. [...] Obesity Sleep apnea Type 2 diabetes mellitus ([facility]) Complex regional pain syndrome type II of right lower limb Coronary arteriosclerosis in [place] artery Current use of insulin ([facility]) Dietary counseling and surveillance Past Medical History: Diagnosis Date CAD (coronary artery disease) DM type 2 (diabetes mellitus, type 2) ([facility]) HLD (hyperlipidemia) HTN (hypertension) Neuropathy ULISES (obstructive sleep apnea) Family History Problem Relation Name Age of Onset Coronary artery disease Other Diabetes Other Social History Tobacco Use Smoking status: Never Smokeless tobacco: Never Substance Use Topics Alcohol use: Not Currently Allergies Allergen Reactions Cefuroxime Celecoxib Diflunisal Metformin Naproxen Nsaids (Non-Steroidal Anti-Inflammatory Drug) Rofecoxib Sulindac Victoza 2-Julian [Liraglutide] Cardiology ROS: 10 point ROS is [...] DAY SUBCUTANEOUSLY DIRECTED, Disp: , Rfl: omega 8-pxx-qxu-fish oil (Fish OiL) 1,200 (144-216) mg capsule, [...] normal. Behavior: Behavior nor (more content not included)...[facility]10-10-2024 Telephone encounter Note* Telephone Encounter - Christiano Solis RN - 07/18/2024 10:17 AM EDT Patient told to schedule an appt to discuss in detail [facility]10-10-2024 Miscellaneous Notes* Telephone Encounter - Christiano Solis RN - 07/18/2024 10:17 AM EDT Patient told to schedule an appt to discuss in detail documented in this encounterWadsworth-Rittman Hospital09-26-2024 Telephone encounter Note * Telephone Encounter - Carrie Perez - 07/04/2024 3:30 PM EDT Patient's called regarding MRI. Patient is now getting it done at [facility]. Patient's is requesting volume be [facility] [place]. Please advise [phone]. SouthPointe HospitalXlcgvigeqo28-50-0724 Miscellaneous Notes* Telephone Encounter - Carrie Perez - 07/04/2024 3:30 PM EDT Patient's called regarding MRI. Patient is now getting it done at [facility]. Patient's is requesting volume be sent to [facility] [place]. Please advise [phone]. documented in this encounterSouthPointe HospitalJgmkrqubej23-33-5644 History of Present illness Narrative* Shyam Freeman DPM FACFAS - 07/03/2024 10:20 AM EDT Images from the original note were not included. Patient: Dong Whitmore : 1950 PCP: Everett Hickman MD SUBJECTIVE This is a 73 [...] Diagnosis Date COVID-19 vaccine series completed Diabetes ([facility]) Hypercholesterolemia ([facility]) Hypertension ([facility]) PVD (peripheral vascular disease) ([facility]) Medications: Current Outpatient Medications: acarbose (Precose) 49 [...] < 3 seconds Digits 1-5 bilateral NEURO: Alba Yandy 5.07 monofilament was intact B/L. Vibratory [...] his pain level in 2 weeks Shyam Freeman DPM FACBRENDA documented in this encounterSouthPointe [id number] History of Present illness Narrative* Chelle Brandon NP - 07/01/2024 10:00 AM EDT Subjective Patient ID: Dong Whitmore is a 73 y.o. male. LT Shoulder Pt is RT handed. 3 weeks s/p subacromial depo medrol injection (06/12/24) with 0% improvement. States he is worse he ran into the corner of his TV about 1 week ago. 5 weeks and 5 days ago pt fell, went to [facility] ER on 05/24/24 and had xrays [...] tolerated, f/u s/p MRI documented in this encounterSouthPointe HospitalLewfvyipia09-43-2004 NoteCardiovascular Medicine [facility] SUBJECTIVE Chief Complaint Patient presents with Coronary [...] with lymphedema. He follows with endocrinology in [place]. He has MILLER - this is unchanged. [...] is currently at a weightloss program at [facility]. He is seeing the rehabilitation supervisor. 01/23/2023 He is down about 10lbs [...] of right lower limb Coronary arteriosclerosis in [place] artery Current use of insulin ([facility]) Dietary counseling and surveillance Past Medical History: Diagnosis Date CAD (coronary artery disease) DM type 2 (diabetes mellitus, type 2) ([facility]) HLD (hyperlipidemia) HTN (hypertension) Neuropathy ULISES (obstructive sleep apnea) Family History Problem Relation Name Age of Onset Coronary artery disease Other Diabetes Other Social History Tobacco Use Smoking status: Never Smokeless tobacco: Never Substance Use Topics Alcohol use: Not Currently Allergies Allergen Reactions Cefuroxime Celecoxib Diflunisal Metformin Naproxen Nsaids (Non-Steroidal Anti-Inflammatory Drug) Rofecoxib Sulindac Victoza 2-Julian [Liraglutide] ROS Cardiovascular: Positive for leg swelling [...] tablet, venlafaxine 37.5 mg (more content not included)...[facility]09-18-2024 NotePatient here for 1 year follow up CAD, hypertension, and hyperlipidemia. Had lipid panel this past December. Had foot surgery last week. Denies chest pain, SOB, palpitations, and lightheadedness/syncope. 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 Review of Systems Cardiovascular: Positive for leg swelling (RLE). Musculoskeletal: Positive for joint pain. All other systems reviewed and are negative.[facility] 06-25-2024 History of Present illness Narrative* Levar Freeman DPM FACFAS - 06/25/2024 2:20 PM EDT Images from the original note were not included. Patient: Dong Whitmore : 1950 PCP: Everett Hickman MD SUBJECTIVE This is a 73 [...] < 3 seconds Digits 1-5 bilateral NEURO: Alba Yandy 5.07 monofilament was intact B/L. 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 Venous insufficiency 4. Non-pressure chronic ulcer of other part of right lower leg with fat layer exposed ([facility]) PLAN Today we applied a dry sterile [...] Dr. Howe. AUGUSTIN Sam documented in this encounterSouthPointe HospitalYekztxbajo10-15-4533 Miscellaneous Notes* Telephone Encounter - AUGUSTIN Horn - 06/19/2024 11:00 PM EDT Sx rx documented in this encounterSouthPointe HospitalTpyejlkgcg31-57-1885 Telephone encounter Note* Telephone Encounter - AUGUSTIN Horn - 06/19/2024 11:00 PM EDT Sx rx SouthPointe HospitalNxcfftrzwy36-48-3527 History of Present illness Narrative* AUGUSTIN Horn - 06/19/2024 8:30 AM EDT Patient: Dong Whitmore : 1950 PCP: Everett Hikcman MD SUBJECTIVE This is a 73 y.o. [...] (CMS/HCC) Hypertension (CMS/HCC) PVD (peripheral vascular disease) ([facility]) Medications: Current Outpatient Medications: acarbose (Precose) 49 [...] Partner Violence: Unknown (11/30/2023) Received from [facility], [facility] [place] [employer] Fear [...] above-stated procedure. AUGUSTIN Horn documented in this encounterSouthPointe [id number] History of Present illness Narrative* Bassam Aguilar DPM - 06/18/2024 10:00 AM EDT Patient: Dong Whitmore : 1950 PCP: Everett Hickman MD SUBJECTIVE This is a 73 [...] (CMS/HCC) Hypertension (CMS/HCC) PVD (peripheral vascular disease) ([facility]) Medications: Current Outpatient Medications: acarbose (Precose) 49 [...] Partner Violence: Unknown (11/30/2023) Received from [facility], [facility] [place] [employer] Fear [...] diabetic polyneuropathy, unspecified whether longterm insulin use ([facility]) 3. Amputation of right great toe ([facility]) PLAN Have discussed and patient the past [...] Patient may continue with conservative treatments including tios-tmi-vebxjyt anti- inflammatories and other treatments suggested today. Patient may want to be s cheduled for surgical intervention in the near future. DIPJ amputation of the right 3rd digit underlocal anesthetic and patient to have done in the near future by either myself or . Bassam Aguilar DPM documented in this encounterSouthPointe HospitalEfcudajfzs04-43-2257 History of Present illness Narrative* Chelle Brandon NP - 06/12/2024 9:15 AM EDTAssociated Order(s): L Inj/Asp: L subacromial bursa Post-Procedure Diagnose(s): Impingement of left shoulder Subjective Patient ID: Dong Whitmore is a 73 y.o. male. LT Shoulder Pt is RT handed. States he is better but his shoulder still hurts a lot 2 weeks 5 days ago pt fell, went to [facility] ER on 05/24/24 and had xrays [...] f/u in 2 weeks. documented in this encounterSouthPointe HospitalIhlzryuaed51-88-6097 NoteHNO ID: [id number] Author: ISAURO HYDE, PhD Service: ? Author Type: Psychologist Type: Progress Notes Filed: 06/07/2024 14:24 Note Text: [facility] for Comprehensive Pain Recovery Behavioral Medicine Group Session I have communicated my name and active licensure. The patient's identity and physical location were verified at the time of this visit. Either the patient or their legal guest experience representative has been informed of the risks and benefits of -- and alternatives to -- treatment through virtual visit and consents to proceed with the session remotely. The patient e-signed the Informed Consent for Psychological Evaluation AND Care Form, and the [facility] health care insurance benefits, fees for service, emergency procedures, and the limits of confidentiality that may pertain with any given case were discussed with the patient. The patient was given a copy of the consent form on [employer] The patient consented to a virtual visit and their location was confirmed. Patient location: [facility] confirmed Patient Name: Dong Whitmore CC#: [id number] Date of service: June 07, 2024 Subjective: [...] wants to explore additional pain management education Isauro Hyde, PhD [phone] History of Present illness Narrative* Isauro Hyde, PhD - 06/07/2024 12:22 PM EDT [facility] for Comprehensive Pain Recovery Behavioral Medicine Group Session I have communicated my name and active licensure. The patient's identity and physical location wereverified at the time of this visit. Either the patient or their legal guest experience representative has been informed of the risks and benefits of -- and alternatives to -- treatment through virtual visit and consents to proceed with the session remotely. The patient e-signed the Informed Consent for Psychological Evaluation & Care Form, and the [facility] health care insurance benefits, fees for service, emergency procedures, and the limits of confidentiality that may pertain with any given case were discussed with the patient. The patient was given a copy of the consent form on [employer] The patient consented to a virtual visit and their location was confirmed. Patient location: [facility] confirmed Patient Name: Dong Whitmore CC#: [id number] Date of service: June 07, 2024 Subjective: [...] wants to explore additional pain management education Isauro Hyde, PhD [phone] documented in this encounterWadsworth-Rittman [facility]08-26-2024 Telephone encounter Note * Telephone Encounter - Naomy Mathis - 06/03/2024 10:32 AM EDT Patient called wanted to know if he is able to make an appointment. Says his shoulder is hurting worse and the site of the RT LT shoulder is turning yellow. Appointment? SouthPointe HospitalJjgcixxtyb28-16-6335 Miscellaneous Notes* Telephone Encounter - Naomy Mathis - 06/03/2024 10:32 AM EDT Patient called wanted to know if he is able to make an appointment. Says his shoulder is hurting worse and the site of the RT LT shoulder is turning yellow. Appointment? documented in this encounterSouthPointe HospitalXjhififted74-10-1176 NoteHNO ID: [id number] Author: MORGAN TRINIDAD, Therapist Service: ? Author Type: Therapist Type: Progress Notes Filed: 05/07/2024 08:20 Note Text: THE [facility] for Comprehensive Pain Recovery Psychological Evaluation May 06, 2024 Dong Whitmore [facility]#: [id number] I have communicated my name and active licensure. The patient's identity and physical location were verified at the time of this visit. Either the patient or their legal guest experience representative has been informed of the risks and benefits of -- and alternatives to -- treatment through virtual visit and consents to proceed with the session remotely. The patient e-signed the Informed Consent for Psychological Evaluation AND Care Form, and the [facility] health care insurance benefits, fees for service, emergency procedures, and the limits of confidentiality that may pertain with any given case were discussed with the patient. The patient was given a copy of the consent form on [employer] The patient consented to a virtual visit and their location was confirmed. Patient location: [place], [place] CPT Code: [id number] Virtual Psych Diagnotic Eval Appointment Start: 9 AM This 73 year old retired for 15 years (he was having some medical problems, but they offered an early snf package that was attractive at the time) male lives with his in [place], [place]. 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 He was referred by Chiqui Robles MD for psychological evaluation in the context of chronic pain. This consultation was shared with the referral source via the [facility] electronic medical record. He believes the [...] as needed. pioglitazone (ACT (more content not included)...[facility] 04-24-2024 NoteHNO ID: [id number] Author: CHIQUI ROBLES MD Service: ? Author Type: Physician Type: Progress Notes Filed: 04/24/2024 11:26 Note Text: [facility] STAFF PHYSICIAN NOTE OF PERSONAL INVOLVEMENT IN CARE IMPRESSION: Complex regional pain syndrome Adjustment Disorder Tried multiple injections, procedures, surgeries. No benefit Tried SCS and recently DRG without success. Discussed ketamine PLAN: Ketamine infusions Consider scrambler therapy Psych psychology Memantine 5mg Psychotherapy Add-on Progress Note Due to medical condition and comorbid psychological and behavioral concerns - psychotherapy was utilized during the visit. Wmok-fk-nnta time: [id number] (16-37 mins) actual time spend in psychotherapy [...] which included preparing to see the patient, xqhl-px-nswb patient care, completing clinical documentation, performing a medically appropriate examination, and counseling and educating the patient/family/caregiver. As noted, the patient's clinical situation is complex and serious with significant comorbidity of pain and functional limitations. This requires higher levels of time, intensity, and expense with longitudinal care and support. STAFF PHYSICIAN:: Chiqui Robles MD DATE of SERVICE: 04/24/2024[facility]07-17-2024 History of Present illness Narrative* Chiqui Robles MD - 04/24/2024 9:27 AM EDT [facility] STAFF PHYSICIAN NOTE OF PERSONAL INVOLVEMENT IN CARE IMPRESSION: Complex regional pain syndrome Adjustment Disorder Tried multiple injections, procedures, surgeries. No benefit Tried SCS and recently DRG without success. Discussed ketamine PLAN: Ketamine infusions Consider scrambler therapy Psych psychology Memantine 5mg Psychotherapy Add-on Progress Note Due to medical condition and comorbid psychological and behavioral concerns - psychotherapy was utilized during the visit. Ojoc-dy-hwnq time: 93836 (16-37 mins) actual time spend in psychotherapy [...] which included preparing to see the patient, cvan-mr-ybgq patient care, completing clinical documentation, performing a medically appropriate examination, and counseling and educating the patient/family/caregiver. As noted, the patient's clinical situation is complex and serious with significant comorbidity of pain and functional limitations. This requires higher levels of time, intensity, and expense with longitudinal care and support. STAFF PHYSICIAN:: Chiqui Robles MD DATE of SERVICE: 04/24/2024 * Bishop Rios MD - 04/24/2024 9:02 AM EDT [facility] for Comprehensive Pain Recovery Neurological Dickson April 24, 2024 This is a face [...] Ketamine infusion therapy Memantine Pain psychology consult Bishop Tucker MD documented in this encounterWadsworth-Rittman [facility]07-17-2024 NoteHNO ID: [id number] Author: BISHOP RIOS MD Service: ? Author Type: Resident Type: Progress Notes Filed: 04/24/2024 11:26 Note Text: [facility] Comprehensive Pain Recovery Neurological Dickson April 24, 2024 This is a face [...] Ketamine infusion therapy Memantine Pain psychology consult Bishop Tucker, [facility]06-13-2024 Telephone encounter Note* Telephone Encounter - Louann So RN - 03/21/2024 11:38 AM EDT Spoke with patient and notified him of provider recommendations. Verbalized understanding. Louann So RN [facility]06-13-2024 Miscellaneous Notes* Telephone Encounter - Louann So RN - 03/21/2024 11:38 AM EDT Spoke with patient and notified him of provider recommendations. Verbalized understanding. 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 Patient states that he spoke with his PCP, Dr. Hickman ([phone]) who spoke with in Infectious disease at [facility]. Dr. Hickman ordered lab work [...] DRG trial may move forward as planned. Louann So RN documented in this encounterWadsworth-Rittman Hospital06-13-2024 Telephone encounter Note * Telephone Encounter - Eufemia Ortiz PA-C - 03/21/2024 9:24 AM EDT Ok per Dr Araujo to proceed with trial - still recommending to keep appt with ID [facility] Work Phone: [phone]) 842-706706-11-2024 Telephone encounter Note* Telephone Encounter - Louann So RN - 03/19/2024 1:28 PM EDT Spoke with patient at request of flight crew scheduler as patient has questions about referral to infectious disease. Patient states that he spoke with his PCP, Dr. Hickman ([phone]) who spoke with in Infectious disease at [facility]. Dr. Hickman ordered lab work [...] DRG trial may move forward as planned. Louann So RN [facility]06-07-2024 NoteMicrobiology PROCEDURE: Blood Culture Charcoal [R1] SOURCE: Blood BODY SITE: COLLECTED DATE/TIME: 03/08/2024 08:30 EDT RECEIVED DATE/TIME: 03/08/2024 09:02 EDT START DATE/TIME: 03/08/2024 09:02 EDT FREE TEXT SOURCE: michel Hickman MD, Everett Hickman MD, Everett Bee FINAL REPORTS Final Report [] Verified Date/Time: 03/15/2024 12:00 EDT No growth at 7 days. Performing Locations R1: This test was performed at: [facility], [address] [place] [address], [address] [place] [address], BpsqlcSelect Medical [facility], AvonComment on above:Performed By: #### [id number] #### [facility] [address] [place] [address] [id number] Instructions* Patient Instructions* Senthil Giraldo MD - 02/29/2024 1:38 PM EDT - Right DRG trial - Obtain psychological evaluation report (patient reports he just had this done ~two months ago) and send to [facility] - ID consult - Rule out infectious risk with due to the dermatitis. - Follow up: Return to clinic for the above procedure documented in this encounterW[facility]24 NoteHNO ID: [id number] Author: RUSLAN ARAUJO MD, PhD Service: ? Author Type: Physician Type: Progress Notes Filed: 03/18/2024 19:05 Note Text: [facility] New Patient Consultation Referring Physician: SELF Chief Complaint: Right third toe pain SUBJECTIVE: Dong Whitmore is a 73 year old male with a pertinent past medical history of diabetes who [facility] for the evaluation [...] Mild depression 10-14 Mo (more content not included)...[facility]05-23-2024 History of Present illness Narrative* Ruslan Araujo MD, PhD - 02/29/2024 1:05 PM EDT Images from the original note were not included. [facility] New Patient Consultation Referring Physician: SELF Chief Complaint: Right third toe pain SUBJECTIVE: Dong Whitmore is a 73 year old male with a pertinent past medical history of diabetes who [facility] for the evaluation of right third toe pain. 15-year history of right third toe pain. He notes that over this time the pain has become increasingly severe has caused him significant discomfort and suffering. He has been to many specialists in the [facility] area-over the course of the past [...] medical history of diabetes who [facility]sto [facility] for the evaluation of right third toe pain. He describes a 15-year history of right third toe pain. He notes that over this time the pain has become increasingly severe has caused him significant discomfort and suffering. He has been to many specialists in the [facility] area-over the course of the past [...] done ~two months ago) and [facility] - ID consult [...] procedure/visit. Plan is as outlined. ELECTRONIC SIGNATURE, Ruslan Arauoj MD, PhD documented in this encounterWadsworth-[facility]04-30-[facility]24 Telephone encounter Note * Telephone Encounter - Lela Hyatt RN - 02/06/2024 10:51 AM EDT Called and spoke to patient. Gave him this message from Dr. Singletary: I'd suggest seeking an appointment with the following doctors who perform DRG implantation: Dr. Carlisle, Dr. Araujo, Dr. Dan, Dr. Cortés Patient voiced understanding. [facility]04-30-[facility]24 Miscellaneous Notes* Telephone Encounter - Lela [...] the number to schedule at [facility] to discuss DRG? I'd suggest seeking an appointment with the following doctors who perform DRG implantation: Dr. Carlisle, Dr. Araujo, Dr. Dan, Dr. Moo Mcwilliams and Dr. Kamara may do DRG - I'm not sure. Thanks Lela! ----- Message ----- From: Livia Lester PA-C Sent: 02/05/2024 2:07 PM EDT To: Francoise Singletary MD No one on this side of [facility] that I know of does DRG so, we also send to [facility] I would just have Loricall the patient and tell him this is not something you do and tell him he needs to be seen a [facility] ----- Message ----- From: Francoise Singletary MD Sent: 02/05/2024 1:45 PM EDT To: TRANG Lindsey! He was supposed to get referred for consideration of DRG - the only people I know who do DRG are at [facility]. How do we refer him there? From what I remember, Truman Melendez, Ni, and Moo do DRG - do you know of anyone else? documented in this encounterWadsworth-[facility]04-30-2024 Telephone encounter Note * Telephone Encounter - Lela Hyatt RN - 02/06/2024 10:46 AM EDT ----- Message from Francoise Snigletary MD sent at 02/05/2024 3:12 PM EDT ----- Do you mind calling him and giving him the number to schedule at [facility] to discuss DRG? I'd suggest seeking an appointment with the following doctors who perform DRG implantation: Dr. Carlisle, Dr. Araujo, Dr. Dan, Dr. Moo Mcwilliams and Dr. Kamara may do DRG - I'm not sure. Thanks Lela! ----- Message ----- From: Livia Lester PA-C Sent: 02/05/2024 2:07 PM EDT To: Francoise Singletary MD No one on this side of [facility] that I know of does DRG so, we also send to [facility] I would just have Loricall the [...] I know who do DRG are at [facility]. How do we refer him there? From what I remember, Truman Melendez, Ni, and Moo do DRG - do you know of anyone else? [facility] Instructions* Patient Instructions* Francoise Singletary MD - 02/05/2024 1:01 PM EDT Thank you for taking the time to come and see me today! Please schedule an appointment for: [facility] Consult Please follow up [facility] Please send all of your Podiatry, Neurology, and Pain Management records to us I will refer you to a provider who performs DRG to discuss this Please come back to see me as needed documented in this encounterWadsworth-Rittman [facility]04-29-2024 History of Present illness Narrative* Francoise Singletary MD - 02/05/2024 11:30 AM EDT Images from the original note were not included. [facility] Consultation Date: February [...] The patient has seen other pain providers. [facility] Neurology OV 02/01/22 Assessment and Plan 71 [...] Hehas been to many specialists in the [facility] area-over the course of the past [...] outside records. Unfortunately during our appointment today, the medical center was down I was unable to review [...] I noted before, he appears today while the medical center was down, and I not [...] will refer him to a doctor at [facility] for consideration of DRG and to discuss the risks, benefits,alternatives. Diagnostics/Referrals: -Chronic Pain Recovery Program referral Referral to [facility] podiatry, neurology for second opinions 2. [...] from the shared EMR documented in this encounterWadsworth-Rittman Hospital04-29-2024 NoteHNO ID: [id number] Author: FRANCOISE SINGLETARY MD Service: ? Author Type: Physician Type: Progress Notes Filed: 02/05/2024 15:14 Note Text: [facility] Consultation Date: February [...] The patient has seen other pain providers. [facility] Neurology OV 02/01/22 Assessment and Plan 71 [...] has been to many specialists in the [place] area-over (more content not included)...[facility]12-04-2023 Evaluation note* Encounter Date Diagnosis Assessment Notes Treatment Notes Treatment Clinical Notes Sep, Hyperlipidemia, unspecified hype rlipidemia type (ICD-10 - E78.5) High cholesterol material was printed 05/2023 ldl 63. at target; trig 164 - on statin Sep,Type 2 diabetes mellitus with diabetic chronic kidney disease (ICD- 10 - E11.22)Type 2 diabetes material was printed 1. Controlled, a Type 2 diabetes with A1c of 6.9% 2. Blood glucose levels according to yudith 3 cgm download 08/29/23-09/11/23: Avg glucose 154. >250-3%, >180-20%, 70-180-71%, <70-5%, <54-1%, GMI 7%. Reviewed download with pt, incidence ofhypoglycemia innacurate d/t sensor failure. Pt reports he did contact [facility] and rc'd replacement sensor. Reviewed with pt if glucose fingerstick >20 points above cgm would recommend changing sensor. Reviewed with pt target fasting am/meal to meal glucose 90/130; 2 hours after meal <180; hs 120/150-180. May need to consider adding basal insulin if fasting am glucose >130's. Pt verbalizesunderstanding. Note pt has intolerance to glp1 class of medications, metformin. Cost barrier for use of sglt2. 3. Patient is alert, oriented and receptive to making changes or counseling. Notes: Seen for 45 minutes for an assessment of current glucose pattern, changes in treatment plan,counseling and coordination of care related to diabetes, risks, and benefits of treatment, medications, and side effects. TOPICS REVIEWED: 1. Time was spent reviewing: a. Basic concepts of diabetes, progressive beta cell , concepts of basal/bolus/corrective insulin requirements. b. Nutrition: Concepts of healthy [...] or sores that do not appear to behealing. 4. Meter: Plan to check blood glucose: [...] provider. Refills should be requested at the timeof your visit. 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 I do not have any images to look at but I dohave a printout of the interpretation. Patient apparently [...] that if all the studies revealed no signi ficant arterial or venous abnormalities and the patient will be need to treat medically with weightloss exercise and compression stockings. He is aware [...] include weight loss exercise and compression therapy. 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 He brought the Yudith 3 sensors and reader. I set up the reader and Dong's was able to apply the sensor to the back of his left arm using an alcohol swab and Skin Tac for added adhesion. He was taught how to apply the sensor using the supplied directions. He was given a no cut Grif Double Cutter to try and a brochure to buy them online. We discussed the Novolog pen and that he is to use it if his BG before a meal is greater than 150. He was able to dial the pen and knows how to putthe pen needle on and deliver the dose. 30 minutes were spent educating the patient by Kamlesh Sparrow RN, [facility]. 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 TOPICS REVIEWED: 1. Time was spent reviewing: a. Basic concepts of diabetes, progressive beta cell , concepts of basal/bolus/corrective insulin requirements. b. Nutrition: Concepts of healthy [...] or sores that do not appear to behealing. 4. Meter: Plan to check blood glucose: [...] or diabetes medication issues. 6. Prescriptions: IGLESIA COTTOUE: Pioglitizone sent. 7. Prescriptions will not be filled unless you are compliant with follow up appointments or have a follow up appointment scheduled as ordered by your provider. Refills should be requested at the timeof your visit. February,Hyperlipidemia, unspecified hyperlipidemia type (ICD-10 - E78.5)High cholesterol material was printed 03/2022 ldl 58.4. 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) 04/29 m/a cr ratio 70 reviewed importance of glucose/bp control to prevent further nephropathy February,MI 40.0-44.9, adult (ICD-10 - Z68.41)Heart healthy diet material was printed 9 pound weight loss from last visit, continue with weight loss efforts [employer] Other 04-14-2023 Evaluation note* Encounter Date Diagnosis Assessment Notes Treatment Notes Treatment Clinical Notes Jan, Obesity, unspecified classification, unspecified obesity type, unspecified whether serious comorbidity present (ICD-10 - E66.9) Jan,MI 40.0-44.9, adult (ICD-10 - Z68.41) Jan,OtherSummary of Visit: (A) Discussed where various foods can fit using the plate method (B) Identified the division of responsibility; discussed I provide the information, he decides whatto do with it (C) Emphasized flavoring vegetables to increase palatability Patient set the following goals: Add flavors to vegetables [employer] Other 03-30-2023 Evaluation note* Encounter Date Diagnosis Assessment Notes Treatment Notes Treatment Clinical Notes Dec, Type 2 diabetes misa itus with hyperglycemia, without long-term current use of insulin (ICD-10 - E11.65) Dec,MI 40.0-44.9, adult (ICD-10 - Z68.41) Dec,Hypertension (ICD-10 - I10) Dec,Mixed hyperlipidemia (ICD-10 - E78.2) Dec,AD (coronary artery disease) (ICD-10 - I25.10) Dec,NASH (nonalcoholic steatohepatitis) (ICD-10 - K75.81) Dec,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 INDICATION: Dyspnea on exertion. STRESS TEST TYPE: Lexiscan Resting EKG: Abnormal, Resting heart rate: 82 Peak heart rate: 92 Peak maximal heart rate: 63% Resting blood pressure: 138/70 Peak blood pressure: ST changes: None. Symptoms: None. Arrhythmias: None. CONCLUSION: 1. No definite EKG evidence of ischemia. 2. Please refer to separately interpreted and reported nuclear myocardial perfusion imaging.[facility] [id number] Evaluation note* Encounter Date Diagnosis Assessment Notes Treatment Notes Treatment Clinical Notes Nov, Obesity, unspecified classification, unspecified obesity type, unspecified whether serious comorbidity present (ICD-10 - E66.9) Nov,MI 40.0-44.9, adult (ICD-10 - Z68.41) Nov,OtherSummary of Visit: (A) Reviewed topics from previous RD visits (B) Extensively reviewed the plate method (C) Emphasized volume through vegetables Patient set the following goals: 1) Increase vegetables at dinner [employer] Other 02-14-2023 Evaluation note* Encounter Date Diagnosis Assessment Notes Treatment Notes Treatment Clinical Notes Nov, Type 2 diabetes misa itus with hyperglycemia, without long-term current use of insulin (ICD-10 - E11.65) Dong came in today for download and evaluation of his yudith report. He wore a sample Yudith 2 for2 weeks. His average BG was 171, 69% [...] . He does not want to start SSinsulin at this time and therefor does not want to continue the yudith for now. 75 minutes were spent evaluating the patient's report and discussing it with him and his by Kamlesh Sparrow RN, [facility]. Reviewed cgm download 11/08/22-11/20/22: Avg glucose 171. >250-1%, >180-30%, 70-180-69%, <70-0%, <540%. CV 15..2%. 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-C, BC-ADM [employer] Other 02-10-2023 Evaluation note* Encounter Date Diagnosis Assessment Notes Treatment Notes Treatment Clinical Notes Nov, Abnormal weight gain (ICD-10 - R 63.5) Nov,Hypertension (ICD-10 - I10) Nov,Mixed hyperlipidemia (ICD-10 - E78.2) Nov,AD (coronary artery disease) (ICD-10 - I25.10) Nov,Type 2 diabetes mellitus with hyperglycemia, without long-term current use of insulin (ICD-10 - E11.65) Nov,NASH (nonalcoholic steatohepatitis) (ICD-10 - K75.81) Nov,MI 40.0-44.9, adult (ICD-10 - Z68.41) Nov,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 TOPICS REVIEWED: 1. Time was spent reviewing: a. Basic concepts of diabetes, progressive beta cell , concepts of basal/bolus/corrective insulin requirements. b. Nutrition: Concepts of healthy [...] or sores that do not appear to behealing. 4. Meter: Plan to check blood glucose: [...] 6. Prescriptions: Acarbose sent to [facility]. Sample yudith 2 cgm given today. 7. Prescriptions will not be filled unless you are compliant with follow up appointments or have a follow up appointment scheduled as ordered by your provider. Refills should be requested at the timeof your visit. 8. F/u 2 weeks with [facility] for cgm download. Oct,Hyperlipidemia, unspecified hyperlipidemia type (ICD-10 - E78.5)High cholesterol material was printed 03/2022 ldl 58.4. 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 Kelley for weight management Oct,OtherStephen was given a sample Yudith 2 sensor and an office owned, [employer]. His phone was not compatible with Yudith 2 or 3, or Dexcom G6. He previously wore the Yudith 14 day system and did not needtraining on applying the device. I did train him on the use of the reader. He was vgiven samples ofGrif Publications Editor and Skin Tac to help keep the device in place. 45 minutes were spent educating the patient by Kamlesh Sparrow RN, [facility]. [employer] Other 01-10-2023 Evaluation note* Encounter Date Diagnosis Assessment Notes Treatment Notes Treatment Clinical Notes Oct, Other Summary of Visit: (A) reviewed the plate method (B) discussed various ways to incorporate more vegetables (C) small, manageable changes Other Info: -discussed how to roast vegetables and make them taste good; patient has been trying them raw-try blending up zucchini and putting it in spaghetti sauce - blood sugars have been high because of tristin-encouraged flavoring vegetables to be good (keeping sodium in mind)-suggested frozen veggies to save time- doesn't like paperwork so didn't go to dr. [...] program2) Try roasted cronin peppers (recipe provided) [employer] Other 11-11-2022 NotePROCEDURE: XR FOOT RT MIN [...] Electronically authenticated by: BRITTNY MORALES Date: 2022-08-19 06:17[facility]11-02-2022 Evaluation note* Encounter Date Diagnosis Assessment Notes Treatment Notes Treatment Clinical Notes Aug, Other Summary of Visit: (A) reviewed plate method; try to eat based on plate method (B) discussed ways to incorporate more vegetables (C) try to hide vegetables in foods like spaghetti sauces Relevant Information:-Wishes he liked different foods but he doesn't-Not willing to like to try newfoods -Exercise: used to exercise, walking, riding bike, picks up sticks and leaves in the yard-Hasa lot of aches and pains; difficult to walk-Potentially will see Saira; have Saira call him (joining the N program 09/05)-Tired all the time-LOVES nuts; buys $75 of nuts when at [employer] -At nighteither eats nuts or cheese + crackers -Only likes cymraes cheese,- Recommended 15g or less for snacks;so 10 crackers instead of the 20 crackers [...] likes those-Increase vegetable intake-Vegetables: corn, peas, carrots [employer] Other 10-19-2022 Evaluation note* Encounter Date Diagnosis Assessment Notes Treatment Notes Treatment Clinical Notes Jul, Type 2 diabetes misa itus with hyperglycemia, without long-term current use of [...] glucose pattern, changes in treatment plan, counseling andcoordination of care related to diabetes, risks, and benefits of treatment, medications, and side effects. TOPICS REVIEWED: 1. Time was spent reviewing: a. Basic concepts of diabetes, progressive beta cell , concepts of basal/bolus/corrective insulin requirements. b. Nutrition: Concepts of healthy [...] or sores that do not appear to behealing. 4. Meter: Plan to check blood glucose: [...] provider. Refills should be requested at the timeof your visit. Jul,Hyperlipidemia, unspecified hyperlipidemia type (ICD-10 - E78.5)High cholesterol material was printed 03/2022 ldl 58.4. 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 Kelley for weight management [employer] Other 08-31-2022 Evaluation note* Encounter Date Diagnosis Assessment Notes Treatment Notes Treatment Clinical Notes May, Other Summary of Visit: (A) Discussed importance of a balanced plate and including non-carbohydrate foods like protein and vegetables with meals (B) Discussed ways to decrease carbohydrates without eliminating foods (portion sizes) (C) Discussed how many carbs to aim for for meals (45-60 g) Relevant Info -Was told not to eat green beans for kidney stones but doesn't know why. Told him to check with hisdoctor and to tell me at next visit [...] with eating the ice cream. Discussed saturated fatand why heart healthy fats are important for diabetes and why non-heart healthy fats can have negative health effects especially for diabetes -Patient has a yudith but doesn't use it because it was [...] -He said at the end of visit thathis idea of what we would do today was that he would get a list of foods that he could eat and his would cook it for him [employer] Other 07-14-2022 Evaluation note* Encounter Date Diagnosis Assessment Notes Treatment Notes Treatment Clinical Notes Apr, Type 2 diabetes misa itus with hyperglycemia, without long-term current use of [...] improved glycemia. Pt would likek referral to rehabilitation supervisor. Note pt has intolerance to glp1 class of medications, metformin. Cost barrier for use of sglt2. Pt with hx metatarsal amputations right foot. 3. Patient is alert, oriented and receptive to making changes or counseling. Notes: Seen for an assessment of current glucose pattern, changes in treatment plan, counseling andcoordination of care related to diabetes, risks, and benefits of treatment, medications, and side effects. TOPICS REVIEWED: 1. Time was spent reviewing: a. Basic concepts of diabetes, progressive beta cell , concepts of basal/bolus/corrective insulin requirements. b. Nutrition: Concepts of healthy [...] or sores that do not appear to behealing. 4. Meter: Plan to check blood glucose: [...] Prescriptions: None needed. 7. Referral to RD Apr,Hyperlipidemia, unspecified hyperlipidemia type (ICD-10 - E78.5)High cholesterol material was printed 03/2022 ldl 58.4. 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 Controlled, a Type 2 diabetes with A1c of 6.6% 2. Blood glucose levels are improved. Reviewed again today lower glycemic food choices for improvedglycemia. Reduce higher glycemic i.e. breads, pasta, processed foods for improved glycemia. Note: D/t cost of medication pt is taking januvia 100mg tablet half tablet daily. If glucose beginsto run above target will need to increase dose to 100mg once daily. Note pt has intolerance to glp1 class of medications, metformin. Cost barrier for use of sglt2. Pt with hx metatarsal amputations right foot. 3. Patient is alert, oriented and receptive to making changes or counseling. Notes: Seen for an assessment of current glucose pattern, changes in treatment plan, counseling andcoordination of care related to diabetes, risks, and benefits of treatment, medications, and side effects. TOPICS REVIEWED: 1. Time was spent reviewing: a. Basic concepts of diabetes, progressive beta cell , concepts of basal/bolus/corrective insulin requirements. b. Nutrition: Concepts of healthy [...] or sores that do not appear to behealing. 4. Meter: Plan to check blood glucose: [...] medication issues. 6. Prescriptions: Pioglitazone sent to [facility]. Oct,Hyperlipidemia, unspecified hyperlipidemia type (ICD-10 - E78.5) High cholesterol material was printed 04/2021 ldl 41.8. at target trig. 249 on statin Oct,Hypertension, unspecified type (ICD-10 - I10) About hypertension material was printed controlled Oct,ietary counseling and surveillance (ICD-10 - Z71.3) Eat a diet rich in fruits and vegetables material was printed see above Oct,MI 40.0-44.9, adult (ICD-10 - Z68.41) Heart healthy diet material was printed Discussed with pt referral to weight management, brochure given today. Recommend call if interested. [employer] Other 10-13-2021 Evaluation note* Encounter Date Diagnosis Assessment Notes Treatment Notes Treatment Clinical Notes Jul, SANTANA (nonalcoholic steatohepatit is) (ICD-10 - K75.81) Jul,Other [facility] INDICATED ABOVE F/U HERE PRN [employer] Other Consult note* Clinical Note Date No Information [facility] Work Phone: Discharge summary* Clinical Note Date No Information [facility] Work Phone: Evaluation noteNo Information[employer] Other Evaluation noteNo assessment information available [facility] Work Phone: Evaluation note* Diagnosis Chronic toe pain, right foot- Primary 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, not stated as uncontrolled Class 3 severe obesity with serious comorbidity and body mass index (BMI) of 40.0 to 44.9 in adult,unspecified obesity type (HCC) [facility] Diagnosis Chronic toe pain, right foot- Primary 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, not stated as uncontrolled Dermatitis of lower extremity Complex regional pain syndrome type II of right lower limb Class 3 severe obesity with serious comorbidity and body mass index (BMI) of 40.0 to 44.9 in adult,unspecified obesity type (HCC) Chronic toe pain, right foot Complex regional pain syndrome type II of right lower limb [facility] Diagnosis Adjustment disorder with depressed mood- Primary Complex regional pain syndrome type II of right lower limb Chronic toe pain, right foot Class 3 severe obesity with serious comorbidity and body mass index (BMI) of 40.0 to 44.9 in adult,unspecified obesity type (HCC) [facility] [place] [facility] Diagnosis Adjustment disorder with depressed mood- Primary Complex regional pain syndrome type II of right lower limb Chronic toe pain, right foot [facility] [place] [facility] Diagnosis Adjustment disorder with depressed mood- Primary Complex regional pain syndrome type II of right lower limb Chronic toe pain, right foot [facility] Diagnosis Complex regional pain syndrome type II of right lower limb [facility]* Diagnosis Acquired deformity of right toe- Primary Diabetes 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, 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 (CMS/HCC) documented in this encounter [facility] [...] diabetic polyneuropathy, unspecified whether longterm insulin use (CMS/HCC) Amputation of right great toe (CMS/HCC) documented in this encounter [facility]* Diagnosis Amputation of toe of right foot (CMS/HCC)- Primary Diabetes 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, 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 (CMS/HCC) Pain due to onychomycosis [...] 40.0 to 44.9 in adult,unspecified obesity type (HCC) [facility]* Diagnosis Right foot pain- Primary Pain in soft tissues of limb Diabetic polyneuropathy associated with type 2 diabetes mellitus (CMS/HCC) documented in this encounter [facility]* Diagnosis Acquired deformity of right toe- Primary Left shoulder pain, unspecified chronicity- Primary Arthritis of left acromioclavicular joint Glenohumeral arthritis, left Impingement of left shoulder documented in this encounter [facility]* Diagnosis Acquired deformity of right toe- Primary Diabetes 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, 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 (CMS/HCC) Venous insufficiency Unspecified venous (peripheral) insufficiency Non-pressure chronic ulcer of other part of right lower leg with fat layer exposed (CMS/HCC) Left shoulder pain, unspecified chronicity- Primary Arthritis of left acromioclavicular joint Glenohumeral arthritis, left Impingement of left shoulder documented in this encounter [facility]* Diagnosis Left shoulder pain, unspecified chronicity- Primary Arthritis of left acromioclavicular joint Glenohumeral arthritis, left Impingement of left shoulder documented in this encounter [facility]* Diagnosis Acquired deformity of right toe- Primary Diabetes 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, 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 (CMS/HCC) Amputation of right great toe (CMS/HCC) documented in this encounter [facility]* Diagnosis Acquired deformity of right toe Left shoulder pain, unspecified chronicity- Primary Arthritis of left acromioclavicular joint Glenohumeral arthritis, left Impingement of left shoulder [facility]* Diagnosis Left shoulder pain, unspecified chronicity- Primary Arthritis of left acromioclavicular joint Glenohumeral arthritis, left Impingement of left shoulder Internal derangement of left shoulder [facility]* Diagnosis Acquired deformity of right toe- Primary documented in this encounter [facility]* Diagnosis Internal derangement of left shoulder- Primary documented in this encounter [facility]* Diagnosis Diabetes 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, 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 (CMS/HCC)- Primary Pain due to onychomycosis of toenails of both feet Venous insufficiency Unspecified venous (peripheral) insufficiency [facility]* Diagnosis Diabetes 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, 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 ([facility])- Primary Pain due to onychomycosis of toenails of both feet Venous insufficiency Unspecified venous (peripheral) insufficiency Amputation of toe of right foot ([facility]) [facility]* Diagnosis Onset Date Resolution Status Admit Date Right leg pain acuteJune 2024 1:13pmRight lumbar radiculopathyacuteJune 2024 1:13pm [facility] Work Phone: Evaluation note* Diagnosis Asymmetrical sensorineural hearing loss- Primary Sensorineural hearing loss, asymmetrical Tinnitus, bilateral Unspecified tinnitus Balance problem Abnormality of gait [facility]* Diagnosis Imbalance- Primary Abnormality of gait Asymmetric SNHL (sensorineural hearing loss) Sensorineural hearing loss, asymmetrical Class 3 severe obesity due to excess calories without serious comorbidity with body mass index (BMI) of 45.0 to 49.9 in adult ([facility]) Claustrophobia Other isolated or specific phobias documented [...] diabetic polyneuropathy, unspecified whether longterm insulin use ([facility])- Primary Neuropathy Mononeuritis of unspecified site Right [...] underlying condition with diabetic polyneuropathy, 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 (HCC)- Primary Pain due to onychomycosis of toenails of both feet Venous insufficiency Unspecified venous (peripheral) insufficiency [facility]* Diagnosis Diabetes 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, unspecified whether longterm insulin use (HCC)- Primary Neuropathy Mononeuritis of unspecified site Diabetes 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, unspecified whether longterm insulin use (HCC)- Primary Pain due to onychomycosis of toenails of both feet Venous insufficiency Unspecified venous (peripheral) insufficiency [facility]* Diagnosis Diabetes 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, 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 (HCC)- Primary Neuropathy Mononeuritis of unspecified site Right foot pain Pain in soft tissues of limb Diabetes 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, unspecified whether longterm insulin use (HCC)- Primary Pain due to onychomycosis of toenails of both feet Venous insufficiency Unspecified venous (peripheral) insufficiency [facility]* Diagnosis Diabetes 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, 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 (HCC)- Primary Pain due to onychomycosis of toenails of both feet Venous insufficiency Unspecified venous (peripheral) insufficiency Amputation of toe of right foot [facility]* Diagnosis Asymmetrical sensorineural hearing loss- Primary Sensorineural hearing loss, asymmetrical documented in [facility]* Diagnosis Diabetes 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, 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 (HCC)- Primary Cellulitis of right [...] polyneuropathy, unspecified whether longterm insulin use (HCC) Foot ulcer, right, with fat layer exposed (HCC) documented in this encounter [facility]Evaluation note* Diagnosis Diabetes 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, 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 (HCC)- Primary Foot ulcer, right, with fat layer exposed (HCC) documented in this encounter [facility]* Diagnosis Chronic ulcer of left leg with fat layer exposed (HCC)- Primary Diabetes 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, 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 Work Phone: Hiscxrx general Narrative - Reported* Type Description Date Medical History DM II Medical HistoryCAD with 4 stentsMedical HistoryHyperlipidemiaMedical HistoryHTN Surgical Historycarpal tunnel rightSurgical Historyingrown toenailsSurgical Historyfoot surgery [id number] Historycolonoscopy x 2Surgical Historykidney stones removedSurgical Historyheart surgery and Surgical History prostateSurgical HistoryAMPUTATION second metatarsal and partial right first [id number] Historysee above [employer] Other Hisdojz general Narrative - Reported* Type Description Date Medical History DM II Medical HistoryCAD with 4 stentsMedical HistoryHyperlipidemiaMedical HistoryHTN Surgical Historycarpal tunnel rightSurgical Historyingrown toenailsSurgical Historyfoot surgery [id number] Historycolonoscopy x 2Surgical Historykidney stones removedSurgical Historyheart surgery and Surgical History prostateSurgical HistoryAMPUTATION second metatarsal and partial right first [id number] HistoryFoot Ccbkzdd5910/27/2021Hospitalization Historysee above [employer] Other History general Narrative - Reported* Type Description Date Medical History DM II Medical HistoryCAD with 4 stentsMedical HistoryHyperlipidemiaMedical HistoryHTN Medical HistoryheartburnMedical Historysleep apneaMedical HistoryfatigueMedical HistoryArthritisMedical Historyback painSurgical Historycarpal tunnel right Surgical Historyingrown toenailsSurgical Historyfoot surgery [id number] History colonoscopy x 2Surgical Historykidney stones removedSurgical Historyheart surgery-2012 and Surgical HistoryprostateSurgical HistoryAMPUTATION second metatarsal and partial right first [id number] HistoryFoot Wsdvwhp4010/27/2021Hospitalization Historysee above [employer] Other History of Past illness Narrative* Condition Effective Dates (start - stop) O utcome No Information [facility] Work Phone: History of Present illness Narrative* Encounter Date Complaint History Of Prese nt Illness No Information [facility] Work Phone: Hospital Discharge instructionsAmbulatory Orders* Referral to Vascular Surgery Location: None [facility] Work Phone: Hospital Discharge instructions Additional Instructions Follow Podiatry orders-- *Keep right foot dressing dry and intact *No weight bearing [facility] Work Phone: Instructions* Date Instruction Additional Infor mation No Information [facility] Work Phone: Progress note* Clinical Note Date No Information [facility] Work Phone: Reason for referral (narrative)No reason for referral information [facility] Work Phone: Redykv for referral (narrative)* Reason For Referral No Information [facility] Work Phone: Reason for visit Narrative* Consultation (Routine) - ClosedSpecialtyDiagnoses / ProceduresReferred By ContactReferred To Contact Neurology Diagnoses Neuropathic pain, MRI / labs @ [facility] , ref by Dr Hickman Procedures AR OFFICE/OUTPATIENT NEW LOW MDM 30 MINUTES NEURO NEW PATIENT Everett Hickman MD [address] [place] [address] Phone: tel: fax: Matthew May, [address] [place] [address] Phone: tel: fax: Referral IDStatusReasonStart DateExpiration DateVisits RequestedVisits [id number] Consult and Treat [facility] HealthcareReason for visit Narrative* Rehabilitation - Outpatient (Routine) - AuthorizedSpecialtyDiagnoses / ProceduresReferred By ContactReferred To ContactPhysical Therapy Diagnoses Imbalance Procedures AR OFFICE/OUTPATIENT NEW HIGH MDM 60 MINUTES David Wong MD [address] [facility] [address] [place] [address] Phone: tel: fax: Morgan Arnold, PT [address] [place] [address] Phone: tel: fax: Referral IDStatusReasonStart DateExpiration DateVisits RequestedVisits [id number] Consult and Treat [facility] HealthcareReason for visit Narrative* Rehabilitation - Outpatient (Routine) - AuthorizedSpecialtyDiagnoses / ProceduresReferred By ContactReferred To ContactPhysical Therapy Diagnoses Imbalance Procedures AR OFFICE/OUTPATIENT NEW HIGH MDM 60 MINUTES David Wong MD [address] [facility] [address] [place] [address] Phone: tel: fax: Morgan Arnold, PT [address] [place] [address] Phone: tel: fax: Referral IDStatusReasonStart DateExpiration DateVisits RequestedVisits [id number] Consult and Treat [facility] HealthcareReview of systems Narrative - Reported* System Pos/Neg Findings No Information [facility] Work Phone: Summary Purpose Family History Relationship Condition Age at Onset Recorded Date/T roshni family member Obesity Unknown fatherHistory of strokeUnknownHeart diseaseUnknownDeceasedUnknownDiabetes mellitusUnknowngrandparentObesityUnknownNot SpecifiedDeceasedUnknownHistory of strokeUnknownsisterDeceasedUnknown Relationship Condition Age at Onset Recorded Date/T roshni aunt Obesity Unknown fatherHistory of strokeUnknownHeart diseaseUnknownDeceasedUnknownDiabetes mellitusUnknowngrandparentObesityUnknownmotherDeceasedUnknownHistory of stroke UnknownsisterDeceasedUnknown Family Member Type Diagnosis Age At Onset No Information Relationship Condition Age at Onset Recorded Date/T roshni aunt Obesity Unknown fatherHistory of strokeUnknownHeart diseaseUnknownDeceasedUnknownDiabetes mellitusUnknowngrandparentObesityUnknownmotherDeceasedUnknownHistory of stroke UnknownMultiple sclerosisUnknownsisterDeceasedUnknown Advance Directives Advance Directive Response Recorded Date/ Time Advance [...] March 13, 2025 2:2 6pm ref by Macre Bowen for lymphedema [facility] 2024 11:16am Reason for Visit Admit Date Right leg pain March 13, 2025 1:13p m Right lumbar radiculopathy March 13 1:13pm Toe pain, right March 19, 2025 11:1 6am Chief Complaint Admit Date pain in toe March 13, 2025 1:13p m M79.604 M54.50 M54.16 March 13, 2025 2:2 6pm ref by Marce Bowen for lymphedema [facility] 2024 11:16am M79.604 March 19, 2025 [...] 03, 2025 4:13pm Bilateral lower extremity edema Septembe 2024 4:13pm Cellulitis July 03, 2025 4:13pm Cellulitis of right foot July 03, 2025 4:13pm Diabetes mellitus due to und erlying condition with diabetic polyneuropathy July 03, 2025 4:13pm Hemosiderin pigmentation of lower extremity due to varicose veins July 03, 2025 4:13pm Venous hypertension of both lower extrem ities July 03, 2025 4:13pm Wound of right foot Nanette 25th, 2025 4:13pm Reason for Referral SpecialtyDiagnoses / ProceduresReferred By ContactReferred To ContactRadiology Diagnoses Internal derangement of left shoulder Procedures MR shoulder left wo IV contrast Chelle Brandon, [employer] [address] [facility] [address] [place] [address] Referral IDStatusReasonStart DateExpiration DateVisits RequestedVisits [id number] Review/[id number] / ProceduresReferred By ContactReferred To ContactOrthopaedic Surgery Diagnoses Impingement of left shoulder Procedures L Inj/Asp: L subacromial bursa Chelle Brandon, [employer] [address] [facility] [address] [place] [address] Referral IDStatusReasonStart DateExpiration DateVisits RequestedVisits [id number] / Procedures Referred By ContactReferred To Contact Diagnoses Acquired deformity of right toe Shyam Freeman, DPM FACFAS [address] [place] [address] Referral IDStatusReasonStart DateExpiration DateVisits RequestedVisits [id number] Review/[id number] / ProceduresReferred By ContactReferred To Contact Diagnoses Complex regional pain syndrome type II of right lower limb Chronic toe pain, right foot Class 3 severe obesity with serious comorbidity and body mass index (BMI) of 40.0 to 44.9 in adult,unspecified obesity type (HCC) Procedures PROVIDER ORDERED FOLLOW UP OFFICE/OUTPATIENT NEW HIGH [facility] 60 MINUTES Chiqui Robles MD [address] [place] [address] Referral IDStatusReasonStart DateExpiration DateVisits RequestedVisits [id number] PCP Requested Referral /[id number] / ProceduresReferred By ContactReferred To ContactInfectious Diseases Diagnoses Dermatitis of lower extremity Procedures CONSULT TO INFECTIOUS DISEASES OFFICE/OUTPATIENT [facility] 60 MINUTES Ruslan Araujo MD, PhD [address] [place] [address] Referral IDStatusReasonStart DateExpiration DateVisits RequestedVisits [id number] PCP Requested Referral [id number] / ProceduresReferred By ContactReferred To ContactPodiatry Diagnoses Chronic toe pain, right foot Painful diabetic neuropathy (HCC) Procedures CONSULT TO PODIATRY OFFICE/OUTPATIENT [facility] 60 MINUTES Francoise Singletary MD [address] [place] [id number] Referral IDStatusReasonStart DateExpiration DateVisits RequestedVisits [id number] PCP Requested Referral [id number] / ProceduresReferred By ContactReferred To ContactNeurology Diagnoses Chronic toe pain, right foot Painful diabetic neuropathy (HCC) Procedures CONSULT TO NEUROLOGY OFFICE/OUTPATIENT [facility] 60 MINUTES Francoise Singletary MD [address] [place] [address] Referral IDStatusReasonStart DateExpiration DateVisits RequestedVisits [id number] PCP Requested Referral [id number] / ProceduresReferred By ContactReferred To [facility] Diagnoses Chronic toe pain, right foot Painful diabetic neuropathy (HCC) Procedures CONSULT TO [facility]IN) OFFICE/OUTPATIENT [facility] 60 MINUTES Francoise Singletary MD [address] [place] [address] Referral IDStatusReasonStart DateExpiration DateVisits RequestedVisits [id number] Review PCP Requested Referral Additional Source Comments REASON FOR VISIT (unrecogniz ed section and content) ReasonCommentsConsultRt footReasonCommentsEstablished PatientMedication Update ReasonCommentsNurse Triage CallReasonCommentsNew PatientSpecialtyDiagnoses / ProceduresReferred By ContactReferred To [facility] Diagnoses Complex regional pain syndrome type II of right lower limb Chronic toe pain, right foot Class 3 severe obesity with serious comorbidity and body mass index (BMI) of 40.0 to 44.9 in adult,unspecified obesity type (HCC) Procedures [facility] TO [facility] ([facility]) OFFICE/OUTPATIENT [facility] 60 MINUTES Ruslan Araujo MD, PhD [address] [place] [address] Referral IDStatusReasonStart DateExpiration DateVisits RequestedVisits [id number] Review PCP Requested Referral /[id number]tnDcxygysdnmde for successReason CommentsMed Change RequestReasonCommentsFoot/ankle Post-opWK 5 post opReason CommentsPainReasonCommentsFoot/ankle Post-opWK 6 post opReasonCommentsToenail CareNon DM NailsReasonCommentsPainMRI 07/15/24SpecialtyDiagnoses / Procedures Referred By ContactReferred To ContactOrthopaedic Surgery Diagnoses Complete tear of left rotator cuff, unspecified whether traumatic Cooper Sanchez, DO [address] [facility] [address] [place] [address] Phone: tel: fax: González Mcwilliams, DO [address] [facility] [place] [address] Phone: tel: fax: Referral IDStatusReasonStpricedale DateExpiration DateVisits RequestedVisits [id number] Consult and Treat /[id number] UpSpecialtyDiagnoses / Procedures Referred By ContactReferred To Contact Diagnoses Complex regional pain syndrome type II of right lower limb Chronic toe pain, right foot Class 3 severe obesity with serious comorbidity and body mass index (BMI) of 40.0 to 44.9 in adult,unspecified obesity type (HCC) Procedures PROVIDER ORDERED FOLLOW UP OFFICE/OUTPATIENT NEW HIGH MDM 60 MINUTES Chiqui Robles MD [address] [place] [address] Referral IDStatusReasonStart DateExpiration DateVisits RequestedVisits [id number] PCP Requested Referral [id number]/ankle Post-opWK 1 post - RT 3rd ampReason CommentsFollow-upReasonCommentsFoot ProblemWants 2nd opinionReasonCommentsToe ProblemRT 3rd digit deformityReasonCommentsFoot/ankle Post-opWeek 2 post op: RT 3rd amputationReasonOnset BuwgObqvutwqTWQ05/26/2024ReasonCommentsToenail CareNon dm nail careReasonCommentsDM Foot CareDm nial careReasonCommentsMeniere's DiseaseAudio 03/28/25ReasonCommentsEar ProblemFollow up MRI [facility] 04/08/25Reason CommentsDM Foot CareReasonCommentsPost-opDressing changeReasonCommentsPost-op ReasonCommentsToenail CareFollow-upulcer (unrecognized sect ion and content) No Status [...] section and content) DATE CREATED AUTHOR 02/20/2023 [facility] DATE CREATED AUTHOR AUTHOR'S ORGANIZ ATION 03/09/2024 [facility] DATE CREATED AUTHOR AUTHOR'S ORGANIZ ATION 03/16/2024 [facility] DATE CREATED AUTHOR AUTHOR'S ORGANIZ ATION 08/28/2024 [facility] DATE CREATED AUTHOR AUTHOR'S ORGANIZ ATION 09/12/2024 [facility] DATE CREATED AUTHOR AUTHOR'S ORGANIZ ATION 11/06/2024 [facility] DATE CREATED AUTHOR AUTHOR'S ORGANIZ ATION 12/27/2024 [facility] DATE CREATED AUTHOR AUTHOR'S ORGANIZ ATION 01/19/2025 [facility] DATE CREATED AUTHOR AUTHOR'S ORGANIZ ATION 02/05/2025 [facility] DATE CREATED AUTHOR AUTHOR'S ORGANIZ ATION 02/21/2025 [facility] DATE CREATED AUTHOR AUTHOR'S ORGANIZ ATION 03/15/2025 [facility] DATE CREATED AUTHOR AUTHOR'S ORGANIZ ATION 06/22/2025 [facility] DATE CREATED AUTHOR AUTHOR'S ORGANIZ ATION 06/23/2025 [facility] DATE CREATED AUTHOR AUTHOR'S ORGANIZ ATION 06/25/2025 [facility] DATE CREATED AUTHOR AUTHOR'S ORGANIZ ATION 06/27/2025 [facility] DATE CREATED AUTHOR AUTHOR'S ORGANIZ ATION 07/14/2025 [facility] DATE CREATED AUTHOR AUTHOR'S ORGANIZ ATION 07/22/2025 [facility] DATE CREATED AUTHOR AUTHOR'S ORGANIZ ATION 07/25/2025 [facility] DATE CREATED AUTHOR AUTHOR'S ORGANIZ ATION 07/29/2025 [facility] DATE CREATED AUTHOR AUTHOR'S ORGANIZ ATION 08/07/2025 [facility] DATE CREATED AUTHOR AUTHOR'S ORGANIZ ATION 08/08/2025 [facility] EPIC Care Teams (unrecognized sec tion and content) Team Status: Active Member Role Status Dates Deo Hickman Primary Care Provider Active Team Status: Active Member Role Status Dates Deo Hickman Primary Care Provider Active Sta rt: July 03, 2025 Jorge Kwok ProviderActiveStart: July 03, 2025 Senthil Kwok ProviderActiveStart: July 03, 2025 González Vega MDOther ProviderActiveStart: July 03, 2025 GREGORIO PoseyMOther ProviderActiveStart: July 03, 2025 Tereso Gramajo MDOther ProviderActiveStart: July 03, 2025 Nat Weldon NP-CAttending ProviderActiveStart: July 03, 2025 Team Status: Active Member Role Status Dates Scarlet Johnson MD Primary Care Provider Active Team Status: Inactive Member Role Status Dates Scarlet Johnson MD Primary Care Provider Active Dakotah Miramontes ProviderActive Team Status: Active Member Role Status Dates Daniel Everett MD Attending Provider Active Ruth Ricketts Care ProviderActive Team Status: Inactive Member Role Status Dates Eligio Soni MD Attending Provider Active Start: August 24, 2023 End: August 24, 2023 Team Status: Inactive Member Role Status Dates Scarlet Johnson MD Primary Care Provider Active S tart: August 24, 2023 End: August 24, 2023MaDakotah Mott ProviderActiveStart: August 24, 2023 End: August 24, 2023 Team Status: Inactive Member Role Status Dates Aldo Middleton APRN Attending Provider Active Start: September 11, 2023 End: September 11, 2023 Team Status: Inactive Member Role Status Dates Daniel Everett MD Attending Provider Active Start: September 11, 2023 End: September 11DENISE Pastranarimary Care ProviderActiveStart: September 11, 2023 End: September 11, 2023Team MemberRelationshipSpecialtyStart DateEnd Date Miguelangel Mac MD [address] [address] [address] [place] [address] ReferringPain Management01/29/24Team MemberRelationshipSpecialtyStart DateEnd Date Miguelangel Mac MD [address] [facility] [address] [place] [address] ReferringPain Management01/29/24Team MemberRelationshipSpecialtyStart DateEnd Date Miguelangel Mac MD [address] [place] [address] [address] [place] [address] ReferringPain Management01/29/24Team MemberRelationshipSpecialtyStart DateEnd Date Miguelangel Mac MD [address] [place] [address] 1 [place] [address] ReferringPain Management01/29/24Team MemberRelationshipSpecialtyStart DateEnd Date Everett Hickman MD [address] [place] [address] PCP - GeneralFamily Medicine03/26/24 Miguelangel Mac MD [address] [place] [address] 1 [place] [address] ReferringPain Management01/29/24Team MemberRelationshipSpecialtyStart DateEnd Date Everett Hickman MD [address] [place] [address] PCP - GeneralFamily Medicine03/26/24 Miguelangel Mac MD [address] [place] [address] 1 [place] [address] ReferringPain Management01/29/24Team MemberRelationshipSpecialtyStart DateEnd Date Everett Hickman MD [address] [place] [address] PCP - GeneralFamily Medicine03/26/24 Miguelangel Mac MD [address] [place] [address] 1 [address] [place] [address] ReferringPain Management01/29/24Team MemberRelationshipSpecialtyStart DateEnd Date Everett Hickman MD [address] [place] [facility] [address] PCP - GeneralFamily Medicine03/26/24 Miguelangel Mac MD [address] [place] [address] [address] [place] [address] ReferringPain Management01/29/24Team MemberRelationshipSpecialtyStart DateEnd Date Everett Hickman MD [address] [place] [address] PCP - Generalmi Medicine03/26/24 Miguelangel Mac MD [address] [place] [address] [address] [place] [address] ReferringPain Management01/29/24Team MemberRelationshipSpecialtyStart DateEnd Date Everett Hickman MD [address] [place] [address] PCP - GeneralFamily Medicine03/26/24 Miguelangel Mac MD [address] [place] [address] [address] [place] [address] ReferringPain Management01/29/24Team MemberRelationshipSpecialtyStart DateEnd Date Everett Hickman MD [address] [place] [address] PCP - GeneralFamily Medicine05/09/24Team MemberRelationshipSpecialtyStart DateEnd Date Everett Hickman MD [address] [place] [address] PCP - GeneralFamily Medicine05/09/24Team MemberRelationshipSpecialtyStart DateEnd Date Everett Hickman MD [address] [facility] [place] [address] PCP - Generalmily Medicine05/09/24Team MemberRelationshipSpecialtyStart DateEnd Date Everett Hickman MD [address] [facility] [place] [address] [facility] - [facility]05/09/24Team MemberRelationshipSpecialtyStart DateEnd Date Everett Hickman MD [address] [place] [address] PCP - Generalmily Medicine05/09/24Team MemberRelationshipSpecialtyStart DateEnd Date Everett Hickman MD [address] [place] [address] PCP - GeneralFamily Medicine03/26/24 Miguelangel Mac MD [address] [place] [address] 1 [address] [place] [address] ReferringPain [facility]01/29/24Team MemberRelationshipSpecialtyStart DateEnd Date Everett Hickman MD [address] [place] [address] PCP - GeneralFamily Medicine05/09/24Team MemberRelationshipSpecialtyStart DateEnd Date Everett Hickman MD [address] [place] [address] PCP - GeneralFamily Medicine05/09/24Team MemberRelationshipSpecialtyStart DateEnd Date Everett Hickman MD [address] [place] [address] PCP - Generalmily Medicine05/09/24Team MemberRelationshipSpecialtyStart DateEnd Date Everett Hickman MD [address] [place] [address] PCP - Generalmily Medicine05/09/24Team MemberRelationshipSpecialtyStart DateEnd Date Everett Hickman MD [address] [place] [address] PCP - Generalmily Medicine05/09/24Team MemberRelationshipSpecialtyStart DateEnd Date Everett Hickman MD [address] [place] [address] PCP - Generalmily Medicine05/09/24Team MemberRelationshipSpecialtyStart DateEnd Date Everett Hickman MD [address] [place] [address] PCP - GeneralFamily Medicine05/09/24Team MemberRelationshipSpecialtyStart DateEnd Date Everett Hickman MD [address] [place] [address] PCP - [facility] Medicine05/09/24Team MemberRelationshipSpecialtyStart DateEnd Date Everett Hickman MD [address] [place] [address] PCP - [facility] Medicine05/09/24Team MemberRelationshipSpecialtyStart DateEnd Date Everett Hickman MD [address] [facility] [place] [address] PCP - [facility]05/09/24Team MemberRelationshipSpecialtyStart DateEnd Date Everett Hickman MD [address] [facility] [place] [address] PCP - [facility] Medicine05/09/24Team MemberRelationshipSpecialtyStart DateEnd Date Everett Hickman MD [address] [place] [address] PCP - [facility] Medicine05/09/24 Team Status: Inactive Member Role Status Dates Deo Hickman Primary Care Provider Active Sta rt: March 13, 2025 End: March 13, 2025Marce Bowen APRNAtkoki ProviderActiveStart: March 13, 2025 End: March 13, 2025 Team Status: Inactive Member Role Status Dates Deo Hickman Primary Care Provider Active Sta rt: March 19, 2025 End: March 19, 2025Eligio Soni MDActiveStart: March 19, 2025 End: March 19, 2025Nat Strong SEMI CONDUCTOR ASSEMBLER-CAttending ProviderActiveStart: March 19, 2025 End: March 19, 2025 Team Status: Active Member Role Status Dates Deo Hickman Primary Care Provider Active Sta rt: March 19, 2025 Dakotah Miramontes ProviderActiveStart: March 19, 2025 Team Status: Inactive Member Role Status Dates Deo Hickman Primary Care Provider Active Sta rt: March 19, 2025 End: March 19, 2025MattPatrica Watsonending ProviderActiveStart: March 19, 2025 End: March 19, 2025Team MemberRelationshipSpecialtyStart DateEnd Date Everett Hickman MD [address] [facility] [place] [address] PCP - [facility]05/09/24Team MemberRelationshipSpecialtyStart DateEnd Date Everett Hickman MD [address] [facility] [place] [address] PCP - [facility]05/09/24 Team Status: Inactive Member Role Status Dates Deo Hickman Primary Care Provider Active Sta rt: March 26, 2025 End: March 26, 2025TonRupesh Moreland ProviderActiveStart: March 26, 2025 End: March 26, 2025 Team Status: Inactive Member Role Status Dates Deo Hickman Primary Care Provider Active Sta rt: April 03, 2025 End: April 03, 2025Rupesh Short ProviderActiveStart: April 03, 2025 End: April 03, 2025Team MemberRelationshipSpecialtyStart DateEnd Date Everett Hickman MD [address] [facility] [place] [address] PCP [facility] [place] [facility]05/09/24Team MemberRelationshipSpecialtyStart DateEnd Date Everett Hickman MD [address] [facility] [place] [address] PCP - GeneralFamily Medicine05/09/24Team MemberRelationshipSpecialtyStart DateEnd Date Everett Hickman MD [address] [place] [address] PCP - GeneralFamily Medicine05/09/24Team MemberRelationshipSpecialtyStart DateEnd Date Everett Hickman MD [address] [place] [address] PCP - GeneralFamily Medicine05/09/24Team MemberRelationshipSpecialtyStart DateEnd Date Everett Hickman MD [address] [place] [address] PCP - GeneralFamily Medicine05/09/24Team MemberRelationshipSpecialtyStart DateEnd Date Everett Hickman MD [address] [place] [address] PCP - GeneralFamily Medicine05/09/24Team MemberRelationshipSpecialtyStart DateEnd Date Everett Hickman MD [address] [place] [address] PCP - GeneralFamily Medicine05/09/24Team MemberRelationshipSpecialtyStart DateEnd Date Everett Hickman MD [address] [place] [address] PCP - GeneralFamily Medicine05/09/24Team MemberRelationshipSpecialtyStart DateEnd Date Everett Hickman MD [address] [place] [address] PCP - Generalmily Medicine05/09/24Team MemberRelationshipSpecialtyStart DateEnd Date Everett Hickman MD [address] [place] [address] PCP - [facility] Medicine05/09/24Team MemberRelationshipSpecialtyStart DateEnd Date Everett Hickman MD [address] [place] [address] PCP - [facility]05/09/24 Name Effective Dates (start - stop) Status Members No Information Team MemberRelationshipSpecialtyStart DateEnd Date Eveertt Hickman MD [address] [place] [address] PCP - [facility]05/09/24Team MemberRelationshipSpecialtyStart DateEnd Date Everett Hickman MD [address] [place] [address] PCP - [facility]05/09/24Team MemberRelationshipSpecialtyStart DateEnd Date Everett Hickman MD [address] [place] [address] PCP - [facility] Medicine05/09/24Team MemberRelationshipSpecialtyStart DateEnd Date Everett Hickman MD [address] [place] [address] PCP - [facility] Medicine05/09/24 Goals (unrecognized section and content) Goals may be documented in a n alternate section Source Comments (unrecognize d section and content) In the event this informatio n is protected by the Federal Confidentiality of Alcohol and Drug Abuse Patient Records regulations: The Federal rules restrict any use of the information to criminally investigate or prosecute any alcohol or drug abuse patient.[facility]In the event this information is protected by the Federal Confidentiality of Alcohol and Drug Abuse Patient Records regulations: The Federal rules restrict any use of the information to criminally investigate or prosecute any alcohol or drug abuse patient.[facility] HospitalIn the event this information is protected by the Federal Confidentiality of Alcohol and Drug Abuse Patient Records regulations: The Federal rules restrict any use of the information to criminally investigate or prosecute any alcohol or drug abuse patient.[facility] HospitalIn the event this information is protected by the Federal Confidentiality of Alcohol and Drug Abuse Patient Records regulations: The Federal rules restrict any use of the information to criminally investigate or prosecute any alcohol or drug abuse patient.[facility] HospitalIn the event this information is protected by the Federal Confidentiality of Alcohol and Drug Abuse Patient Records regulations: The Federal rules restrict any use of the information to criminally investigate or prosecute any alcohol or drug abuse patient.[facility] HospitalIn the event this information is protected by the Federal Confidentiality of Alcohol and Drug Abuse Patient Records regulations: The Federal rules restrict any use of the information to criminally investigate or prosecute any alcohol or drug abuse patient.[facility] HospitalIn the event this information is protected by the Federal Confidentiality of Alcohol and Drug Abuse Patient Records regulations: The Federal rules restrict any use of the information to criminally investigate or prosecute any alcohol or drug abuse patient.[facility] HospitalIn the event this information is protected by the Federal Confidentiality of Alcohol and Drug Abuse Patient Records regulations: The Federal rules restrict any use of the information to criminally investigate or prosecute any alcohol or drug abuse patient.[facility] HospitalIn the event this information is protected by the Federal Confidentiality of Alcohol and Drug Abuse Patient Records regulations: The Federal rules restrict any use of the information to criminally investigate or prosecute any alcohol or drug abuse patient.[facility] HospitalIn the event this information is protected by the Federal Confidentiality of Alcohol and Drug Abuse Patient Records regulations: The Federal rules restrict any use of the information to criminally investigate or prosecute any alcohol or drug abuse patient.[facility] HospitalIn the event this information is protected by the Federal Confidentiality of Alcohol and Drug Abuse Patient Records regulations: The Federal rules restrict any use of the information to criminally investigate or prosecute any alcohol or drug abuse patient.[facility] HospitalIn the event this information is protected by the Federal Confidentiality of Alcohol and Drug Abuse Patient Records regulations: The Federal rules restrict any use of the information to criminally investigate or prosecute any alcohol or drug abuse patient.[facility] FOR RECORDS PERTAINING TO PATIENTS WHO [...] BE BASED ON THE PRIMARY CLINICAL RECORDS. [facility]. provides no warranty or guarantee of the accuracy or completeness of information in this document.
--- NOTE | 2025-08-29 12:45 | CA_ITS ---
Patient Name: LUISITO WHITMORE MR#: [id number] : 1950 Exam Date: 08/29/2025 Ordering Doctor: MARY APARICIO CNP ECHOCARDIOGRAM REPORT PROCEDURE: CA ECHO DOPPLER COMPLETE INDICATIONS: LVH COMPARISON: None. DESCRIPTION: COMPLETE ECHOCARDIOGRAM Real-time transthoracic echocardiography with 2D, M-mode, spectral and color flow Doppler performed. QUALITY: Technical quality was adequate. LEFT VENTRICLE: Normal chamber size. Severe concentric left ventricular hypertrophy. Global left ventricular systolic function is normal. Visual estimation of left ventricular ejection fraction is 55-60%. LV EF: Normal left ventricular ejection fraction, (>55%). DIASTOLIC: Diastolic function is indeterminate. ATRIAL SEPTUM: Technically difficult, not well visualized. LEFT ATRIUM: Moderate dilatation. RIGHT ATRIUM: Moderate dilatation. RIGHT VENTRICLE: Mild dilatation. Normal right ventricular systolic function. TRICUSPID VALVE: Normal mobility and thickness. No stenosis with trivial regurgitation. No evidence of pulmonary hypertension. RVSP is 23 mmHg. MITRAL VALVE: Normal mobility and thickness. No evidence of mitral valve stenosis. There is no mitral annular calcification. Trivial mitral regurgitation. AORTIC VALVE: Normal trileaflet appearance. No visible sclerosis. Normal leaflet mobility. No evidence of aortic valve stenosis. No aortic regurgitation. AORTIC ROOT: The aortic root is upper limits of normal measuring 3.9 cm. The ascending aorta measures 3.1 cm. PULMONIC VALVE: Normal thickness and mobility. No stenosis. Trivial regurgitation. PERICARDIUM: No evidence of pericardial effusion. IVC: Collapses with inspirations. The IVC is normal in size measuring 1.9cm. PLEURA: CONCLUSION: 1. Severe concentric left ventricular hypertrophy with normal systolic function. Estimated LVEF is 55 to 60%. 2. Mildly dilated right ventricle with normal systolic function. 3. Moderate biatrial dilatation. 4. No significant valvular dysfunction. 5. Normal right-sided pressures. Adult Echocardiography Procedure Report Left Ventricle LVEDD (3.7 - 5.6 cm): 5.44 cm LVESD (2.2 - 4.0 cm): 3.66 cm LVIVS thickness (0.6 - 1.2 cm): 1.79 cm LVPW thickness (0.5 - 1.0 cm): 1.67 cm e': 0.10 m/s E - e': 8.01 LVOT Max Gradient: 2.43 mm[Hg] LVOT Area (cm2): 0.78 m/s Peak Velocity (LVOT): 0.78 m/s Mean Velocity (LVOT): 0.53 m/s LVOT Diameter 2.65 cm Left Ventricular Ejection Fraction: 55-60 % Left Atrium LA Volume Index (2D A2C): 67.52 ml/m2 Left Atrium Systolic Dimension: 5.44 cm Mitral Valve MV E to A Ratio: 1.17 Mitral Valve A-Wave Peak Velocity: 0.68 m/s Mitral Valve E-Wave Peak Velocity: 0.79 m/s Right Ventricle RV Internal Diastolic Dimension: 4.74 cm Aorta AO Root Diam: 3.88 cm Ascending Ao Diam: 3.10 cm Aortic Valve AoV Area (Peak Juvenal): 4.25 cm2, 4.25 cm2 AoV Area (VTI): 4.90 cm2, 4.90 cm2 Peak Velocity(Antegrade Flow): 1.01 m/s Peak Gradient(Antegrade Flow): 4.07 mm[Hg] Mean Velocity(Antegrade Flow): 0.57 m/s Mean Gradient(Antegrade Flow): 1.76 mm[Hg] Velocity Time Integral: 20.12 cm Tricuspid Valve Peak Velocity (Regurgitant Flow): 2.22 m/s Pulmonic Valve Mean Gradient: 1.49 mm[Hg] Mean Velocity: 0.56 m/s Peak Velocity: 0.89 m/s, 1.02 m/s Peak Gradient: 3.20 mm[Hg], 4.16 mm[Hg] Right Atrium Right Atrium Systolic Pressure: 122.75 ml, 122.75 ml Dictated by: Jesus Thibodeaux M.D. on 08/29/2025 at 17:31 Approved by: Jesus Thibodeaux M.D. on 08/29/2025 at 17:34
== END 2025-08-29 12:37 | disposition home or self-care (01) ==
LOC: CARD 12:36
PROVIDERS: PCP Nurse Practitioner; Visit Provider Nurse Practitioner Family
DX: I51.7 Cardiomegaly (principal)
CPT/HCPCS: 93306